=== PATIENT | female | born 1950 | race Caucasian/White ===

== ENCOUNTER 2016-08-22 10:02 | Observation (INO) | payer MEDICAID, SELFPAY ==
[2016-08-22] VITALS (10 sets, daily range): BP systolic 103–162; BP diastolic 66–115; PULSE 101–114; RESP 16–25; TEMP 36.5–37.1; O2SAT 91–99; BMI 49.9; BMI 41.9
[2016-08-22 10:13] LABS: Bedside Glucose 348 mg/dL (70-110)
--- NOTE | 2016-08-22 10:15 | RAD_ITS ---
STUDY: X-RAY CHEST REASON FOR EXAM: Female, 65 years old. Shortness of breath. TECHNIQUE: Single AP portable view of the chest. COMPARISON: 11/12/2015. FINDINGS: The lungs are clear and expanded. There is no demonstrated pleural abnormality. Normal size heart. Normal mediastinum and easton. Normal visualized pulmonary arteries. There is atherosclerotic calcification of the aortic arch. Normal visualized thoracic spine. There are mild degenerative changes in the right acromioclavicular joint. There is no demonstrated abnormality of the visualized soft tissue structures of the upper abdomen. RAD/Chest 1 View (Portable) IMPRESSION: No active pulmonary disease. Electronically Signed: Torito Olmos MD at 10:57 EDT Tel , Service support [phone],
--- NOTE | 2016-08-22 10:15 | EKG12_ITS ---
Test Reason : SOB Blood Pressure : / mmHG Vent. Rate : 109 BPM Atrial Rate : 109 BPM P-R Int : 152 ms QRS Dur : 086 ms QT Int : 338 ms P-R-T Axes : 063 011 036 degrees QTc Int : 455 ms Sinus tachycardia Otherwise normal ECG Confirmed by JESUS WRIGHT ([id number]), editor farm journal GUERRERO AGUERO ([id number] on 08/23/2016 2:45:28 PM Referred By: Confirmed By:JESUS WRIGHT
[2016-08-22] MEDS: 0.9% Normal Saline 1,000 ML 1000 ML IV (10:20)
[2016-08-22 10:33] LABS: Absolute Lymphocyte Count 1.36 X10^3/ul (0.83-4.51); Absolute Neutrophil Count 3.8 X10^3/uL (2.0-7.7); Basophil# 0.02 X10^3/uL; Basophil% 0.3 % (0-1); Eosinophil# 0.01 X10^3/uL; Eosinophils% 0.2 % (0-5); Hematocrit 43.2 % (37-47); Hemoglobin 14.5 g/dl (12.0-15.0); Lymphocyte # 1.36 X10^3/ul (4.0); Lymphocyte % 22.7 % (19-41); Mean Corp Hgb Conc 33.6 g/gl (32-36); Mean Corpuscular Hgb 29.8 pg (27.0-32.0); Mean Corpuscular Volume 88.7 fL (81-99); Mean Platelet Vol. 11.8 fl (6.2-12.0); Monocyte# 0.84 X10^3/uL; Neutrophil # 3.76 X10^3/uL (2.7-7.7); Neutrophil % 62.6 % (47-70); Platelet Count 154 K/mm3 (150-450); RBC Distribution Width CV 14.2 % (11.6-14.6); RBC Distribution Width SD 45.9 fl (35.1-43.9); Red Blood Count 4.87 M/mm3 (4.2-5.4)
[2016-08-22 10:34] LABS: POSITIVE COUNT NO; POSITIVE DIFFERENTIAL NO; POSITIVE MORPHOLOGY NO
[2016-08-22 10:55] LABS: ALB/GLOB Ratio 0.7 RATIO (0.9-2.4); AST(SGOT) 142 U/L (15-37); Alanine Aminotransfer ALT/SGPT 102 U/L (12-78); Alkaline Phosphatase 128 U/L (45-117); Anion Gap 9 (5-15); BUN 15 mg/dL (7-18); Calcium,Total 8.5 mg/dL (8.5-10.1); Chloride 102 mmol/L (98-107); Creatinine, Serum 0.94 mg/dL (0.55-1.02); EST Glomerular Filtration Rate 64 mL/min (>60); Est Glom Filt Rate - Afr Amer 78 mL/min (>60); Estimated Creatinine Clearance 55.12 ml/min; Globulin 4.6 g/dL (2.3-3.5); Glucose 468 mg/dL (70-110); Potassium 4.7 mmol/L (3.5-5.1); Protein, Total 7.6 g/dL (6.4-8.2); Sodium Level 133 mmol/L (136-145)
--- NOTE | 2016-08-22 10:55 | ED.RN ---
GLUCOSE 468. AWARE.
[2016-08-22 11:31] LABS: Mucous, Urine 0 SEEN /hpf (<or=2+); Red Blood Cells-Urine 0 SEEN /hpf (0-5)
[2016-08-22 11:39] LABS: Color, Urine Yellow (Yellow); Glucose, Dipstick 1000 mg/dl (Normal); Ketone-Dipstick 50 mg/dl (Negative); Leukocyte Esterase-Dipstick Negative /ul (Negative); Nitrite-Dipstick Positive (Negative); Occult Blood-Urine 25 /ul (Negative); Protein-Dipstick 15 mg/dl (Negative); Specific Gravity, Urine 1.015 (1.002-1.030); Urine Bilirubin Dipstick Negative (Negative); Urine Clarity Sl. Cloudy (Clear); Urine Urobilinogen Normal (Normal)
[2016-08-22 11:48] LABS: Bacteria 4+ /hpf (None Seen); Squamous Epithelial Cells - UA 0-5 SEEN /hpf (5-10); White Blood Cells 0-5 SEEN /hpf (0-5)
--- NOTE | 2016-08-22 12:51 | HP.PCM_ITS ---
History of Present Illness Date of Admission: 08/22/16 Chief Complaint: Not feeling well The patient is a 65 year old female was brought in to the ED from [facility] was complains of not feeling well. Patient is extremely poor historian, says that she does not know why she was brought into the ED, probably because she was not feeling right. Patient is unable to give more specific complaints. Per report she was found to be acting weird in the [facility] where she resides, her blood sugars were found to be elevated. She also complained of. The my exam patient is laying down in bed, does not appear to be distressed, although she looks weak and fatigued. Says that does not feel right. Complains of dull achy pain in the epigastric area that she rates as 6/10, says that it moves from her left abdomen to the right. She also complains of shortness of breath and coughing for about 1 week, reports dry cough without sputum production. Also reports lightheadedness for the last 2 days and generalized weakness for the same period of time. She also complains that for the last week she feels burning on urination, frequency, increased thirst, urgency, nocturia, incontinence with coughing. She also mentioned to me that he will left leg hurts, but she did not notice anything abnormal. That said patient has very significant rash spreading from her groin area to the left lower extremity that does look like severe intertrigo. Patient denies any fever or chills, but says that she is constantly cold. Past medical history. Patient denies any medical problems, although says that she does have bipolar disorder and anxiety. She also mentioned to me that she has IBS, but is not on any medications. Social history. Patient is homeless, lives at the [facility]. Smokes for unknown period of time, less than 2 weeks ago, states he smokes about 1 cigarette per day. Denies use of alcohol street drugs. Family history. Her grandmother had diabetes mellitus. Her mother had bioprosthetic heart valve. Past Medical History Allergies ciprofloxacin [From Cipro] Allergy (Verified 01/16/16 22:33) Anaphylaxis ciprofloxacin HCl [From Cipro] Allergy (Verified 01/16/16 22:33) Anaphylaxis Iodinated Contrast Media - Oral and [Iodinated Contrast Media - IV Dye] Allergy (Verified 01/16/16 22:33) Rash paliperidone [From Invega] Allergy (Verified 01/16/16 22:33) Rash Penicillins Allergy (Verified 01/16/16 22:33) Unknown Sulfa (Sulfonamide Antibiotics) Allergy (Verified 01/16/16 22:33) Unknown Home Medications: Ambulatory Orders Medication Instructions Recorded Clonazepam [Klonopin] 0.5 mg PO Q8H PRN PRN 08/19/13 Lamotrigine [Lamictal] 150 mg PO DAILY 08/19/13 Ergocalciferol [Vitamin D] 50,000 unit PO Q7D 05/07/15 Quetiapine Fumarate [Seroquel] 600 mg PO QHS 08/22/16 Smoking Status: Former smoker . - As above Review of Systems Constitutional: Reports: Malaise, Weakness, Fatigue. Denies: Anorexia, Chills, Fever, Night Sweats Eyes: Denies: Vision Change HEENT: Denies: Visual Changes Cardiovascular: Reports: Light Headedness. Denies: Chest Pain, Chest Tightness , Edema, Palpitations, Syncope Respiratory: Reports: Cough, Shortness of Breath. Denies: Hemoptysis, Pleuritic Pain, Sputum production Gastrointestinal: Reports: Abdominal Pain, Hematochezia - Says it did noted bright red blood when she wipes.. Denies: Constipation, Diarrhea, Dyspepsia, Nausea, Melena, Vomiting Genitourinary: Reports: Dysuria, Frequency, Hesitancy, Incontinence, Nocturia, Retention, Urgency. Denies: Hematuria Gynecological: Reports: Vaginal itching Musculoskeletal: Reports: Leg Pain. Denies: Hand Pain, Joint Pain, Muscle pain Skin: Reports: Dryness, Rash - When patient was pointed to the rash she is a that she does have this rash but does not know for how long, Skin Changes. Denies: Jaundice Neurological: Reports: Balance problems - Due to lightheadedness. Denies: Blurred vision, Double vision, Change in Speech, Slurred speech, Confusion, Difficulty swallowing, Focal weakness, Headaches, Incoordination, Numbness, Tingling, Tremor, Seizures Psychiatric: Reports: Anxiety, - - Bipolar. Denies: Suicidal Ideations Endocrine: Reports: Polydipsia. Denies: Change in Body Habitus Hematologic/ Lymphatic: Denies: Adenopathy, Anemia, Hx of blood clot VTE Information - Inpt Only VTE Present on Admission: No Objective: General: Patient is laying down in bed, does not appear to be in distress. Very poor hygiene. Awake, alert, oriented ?3. HEENT: Atraumatic, Normocephalic. Clear conjunctiva. Oral mucosa is dry. Neck: No nodules noted, no asymmetry. PERRLA. Skin: Clean, dry. There is extensive foul-smelling rash in her groin bilaterally spreading to the lower extremities left more than right to the level below the knee, it does resemble severe intertrigo. Lungs: clear to auscultation bilaterally. CVS: S1-S2 present, no murmurs appreciated, regular rate, good radial pulses. Capillary refill is less than 3 Seconds. Abdomen: Soft, nontender, nondistended, bowel sounds present. No CVA tenderness. Extremities: No clubbing, No cyanosis. No visible deformities. Bilateral lower extremity edema. Psych/Mental Status: She does look somewhat slow, but appropriate and cooperative. Neuro: No focal neurological findings. - Physical Exam Vital Signs Temp Pulse Resp BP Pulse Ox 37.1 C 106 21 156/88 96 08/22/16 10:03 08/22/16 12:17 08/22/16 12:17 08/22/16 12:17 08/22/16 12:17 Oxygen Flow Rate 2 Oxygen Delivery Method Nasal Cannula Weight: 136.078 kg Body Mass Index (BMI) 49.9 Finger Stick Blood Glucose 118 Laboratory Tests Past 24 Hrs 08/22/16 08/22/16 08/22/16 10:25 10:25 11:20 WBC 6.0 RBC 4.87 Hgb 14.5 Hct 43.2 MCV 88.7 MCH 29.8 MCHC 33.6 RDW 14.2 RDW Differential 45.9 H Plt Count 154 MPV 11.8 Immature Gran % (Auto) 0.200 Neut % (Auto) 62.6 Lymph % (Auto) 22.7 [place] % (Auto) 14.0 H Eos % (Auto) 0.2 Baso % (Auto) 0.3 Absolute Neuts (auto) 3.8 Absolute Lymphs (auto) 1.36 Total Counted Not Reportable Sodium 133 L Potassium 4.7 Chloride 102 Carbon Dioxide 22.0 Anion Gap 9 BUN 15 Creatinine 0.94 Estim Creat Clear Calc 55.12 Est GFR (MDRD) Af Amer 78 Est GFR (MDRD) Non-Af 64 BUN/Creatinine Ratio 16.0 Glucose 468 H* Calcium 8.5 Total Bilirubin 0.50 AST 142 H ALT 102 H Alkaline Phosphatase 128 H Total Protein 7.6 Albumin 3.0 L Globulin 4.6 H Albumin/Globulin Ratio 0.7 L Urine Color Yellow Urine Clarity Sl. Cloudy Urine pH 5.0 Ur Specific Chester 1.015 Urine Protein 15 H Urine Glucose (UA) 1000 H Urine Ketones 50 H Urine Occult Blood 25 H Urine Nitrite Positive H Urine Bilirubin Negative Urine Urobilinogen Normal Ur Leukocyte Esterase Negative Urine RBC 0 SEEN Urine WBC 0-5 SEEN Ur Squamous Epith Cells 0-5 SEEN Urine Bacteria 4+ Urine Mucus 0 SEEN POC Glucose 08/22/16 10:03 POC Glucose 348 H Assessment/Plan * Newly diagnosed diabetes mellitus type 2, complicated with HHS-blood glucose on arrival 468. Likely trigger is UTI. Will check hemoglobin A1c. We will start on insulin sliding scale for now, IV fluids. Based on hemoglobin A1c level will decide oral hypoglycemic agents versus insulin. * UTI, likely cystitis. Patient has urinary symptoms as above. Urine is positive for bacterial infection, cultures are pending. Patient has multiple allergies to antibiotics. Will give a trial of 0.5 g of ceftriaxone with Benadryl. Will monitor for reactions, if tolerating well, will continue ceftriaxone. * Severe intertrigo. Patient need to improve hygiene. Will start on topical nystatin. If no improvement will consider oral antifungals. * Dehydration. Patient does look dehydrated likely due to HHS. Will encourage oral intake, will give IV fluids. * History of bipolar disorder and anxiety. Looks stable now, continue home medications. * DVT prophylaxis was Lovenox. Mikeon Dictation.
--- NOTE | 2016-08-22 13:25 | NURSING ---
dr greenfield in [place]
--- NOTE | 2016-08-22 13:29 | NURSING ---
MED SURG [facility]
[2016-08-22] MEDS: Nitrofurantoin Macrocrystals 100 MG Capsule PO (13:36)
[2016-08-22] MEDS: Nystatin Ointment 1 APPLIC TOPICAL (13:36)
[2016-08-22 14:15] LABS: Bedside Glucose 299 mg/dL (70-110)
[2016-08-22 14:27] LABS: Lipase 147 U/L (73-393)
[2016-08-22 15:34] LABS: Bedside Glucose 233 mg/dL (70-110)
[2016-08-22] MEDS: DiphenhydrAMINE 50 MG/ML Syringe 25 MG IV (15:40)
[2016-08-22] MEDS: 0.9% Normal Saline 1,000 ML 75 ML IV (15:43)
[2016-08-22] MEDS: Glucerna Shake 120 ML LIQUID PO ×2 (17:33→22:32)
[2016-08-22] MEDS: Nystatin Powder 15gm Bottle 1 APPLIC TOPICAL ×2 (17:33→22:32)
[2016-08-22 22:40] LABS: Bedside Glucose 271 mg/dL (70-110)
[2016-08-23] VITALS (11 sets, daily range): BP systolic 123–161; BP diastolic 64–99; PULSE 97–114; RESP 16–18; TEMP 36.6–36.8; O2SAT 94–96
[2016-08-23] MEDS: Nystatin Powder 15gm Bottle 1 APPLIC TOPICAL ×3 (06:19→22:06)
[2016-08-23 06:45] LABS: Bedside Glucose 304 mg/dL (70-110)
--- NOTE | 2016-08-23 07:24 | PN_ITS ---
Subjective: Patient is 65-year-old female who was admitted to hospital with complaints of not feeling well, was found to have newly diagnosed diabetes mellitus, UTI, severe intertrigo. Subjective. Patient was seen and examined. Sitting in the chair, comfortable, she does look better today, says it overall feels better. Still has mild urinary complaints, although Sandys is better now. Denies GI/neuro complaints. Afebrile. No shortness of breath now. Objective. General: Patient is laying down in bed, does not appear to be in distress. Very poor hygiene. Awake, alert, oriented ?3. HEENT: Atraumatic, Normocephalic. Clear conjunctiva. Oral mucosa is moist. Neck: No nodules noted, no asymmetry. PERRLA. Skin: Clean, dry. There is extensive foul-smelling rash in her groin bilaterally spreading to the lower extremities left more than right to the level below the knee, it does resemble severe intertrigo. Today there is a marked improvement in the extent of the rash, yet it is still very extensive and severe. Lungs: clear to auscultation bilaterally. CVS: S1-S2 present, no murmurs appreciated, regular rate, good radial pulses. Capillary refill is less than 3 Seconds. Abdomen: Soft, nontender, nondistended, bowel sounds present. No CVA tenderness. Extremities: No clubbing, No cyanosis. No visible deformities. Bilateral lower extremity edema. Psych/Mental Status: She does look somewhat slow, but appropriate and cooperative. Neuro: No focal neurological findings. Assessment and plan. * Newly diagnosed diabetes mellitus type 2, complicated with HHS-blood glucose on arrival 468. Likely trigger is UTI. Surgeon insulins. Hemoglobin A1c = 13.2. We will add basal insulin, continue insulin sliding scale, will adjust as needed. HHS resolved. * UTI, likely cystitis due to E. coli. History of penicillin allergy, although patient is tolerating ceftriaxone well, will continue. Symptoms are improving. * Severe intertrigo. Patient need to improve hygiene. Started on topical nystatin. Noted improvement in here rash, still very extensive. * Dehydration. Patient does look dehydrated likely due to HHS. Treated with IV fluids and encouraging oral intake. Improved. * History of bipolar disorder and anxiety. Looks stable now, continue home medications. * DVT prophylaxis was Lovenox. * Disposition: Patient is homeless, lives at [facility], during my conversation with patient I do not think she fully understand the extent of her medical conditions. I am not sure if she will be able to manage her diabetes independently, at least right away after discharge, she probably will need more extensive training and supervision at least initially. I believe she would benefit from assisted living facility or [facility] placement at least with initiation of her insulins to ensure good control of her blood glucose levels. director information security consulted. Justina Mccraryation. Vitals/I&O's: Vital Signs Temp Pulse Resp BP Pulse Ox 36.7 C 100 16 133/77 94 08/23/16 03:00 08/23/16 03:54 08/23/16 03:00 08/23/16 03:00 08/23/16 07:13 Oxygen Flow Rate 2 Oxygen Delivery Method Room Air Weight: 115.8 kg Body Mass Index (BMI) 41.9 Finger Stick Blood Glucose 299 Intake and Output for Last 24 Hours 08/21/16 08/22/16 08/23/16 23:59 23:59 23:59 Intake Total 585 631 Balance 585 631 Laboratory Results 08/22/16 14:06: POC Glucose 299 H 08/22/16 15:21: POC Glucose 233 H 08/22/16 22:22: POC Glucose 271 H 08/23/16 06:09: POC Glucose 304 H Current Medications Acetaminophen (Tylenol) 650 mg PO Q6H PRN PRN PRN Reason: Mild Pain (scale 0-3)/T>100.7 Clonazepam (Klonopin) 0.5 mg PO Q8H PRN PRN PRN Reason: ANXIETY Last Admin: 08/23/16 06:21 Dose: 0.5 mg Dextrose (D50w Syringe) 0 gm IV X1 PRN; Protocol PRN Reason: Hypoglycemia Diphenhydramine HCl (Benadryl) 25 mg IV X1 PRN PRN Reason: ALLERGIES Enoxaparin Sodium (Lovenox) 40 mg SC DAILY@1000 ARNULFO Glucagon () 1 mg IM .X1 PRN PRN Reason: Hypoglycemia Ceftriaxone Sodium 1 gm/ N/A 50 mls @ 100 mls/hr IV Q24 ARNULFO Insulin Aspart (Novolog Flexpen (Bkc)) 0 units SC ACHS ARNULFO PRN Reason: Protocol Last Admin: 08/23/16 06:20 Dose: 6 units Lamotrigine (Lamictal) 150 mg PO DAILY [facility] Non-Formulary Medication (Quetiapine Fumarate [Seroquel]) 600 mg PO QHS [facility] Nutritional Formula (Lactose Free) (Glucerna Shake) 120 ml PO 4X/DAY [facility] Last Admin: 08/22/16 22:32 Dose: 120 ml Nystatin (Mycostatin Powder) 1 applic TOPICAL TID [facility] PRN Reason: Protocol Last Admin: 08/23/16 06:19 Dose: 1 applicatio Ondansetron HCl (Zofran) 4 mg IV Q8H PRN PRN PRN Reason: Nausea Sodium Chloride () 5 ml IV UD PRN PRN Reason: SALINE FLUSH
[2016-08-23 08:01] LABS: Absolute Lymphocyte Count 1.35 X10^3/ul (0.83-4.51); Absolute Neutrophil Count 2.2 X10^3/uL (2.0-7.7); Basophil# 0.01 X10^3/uL; Basophil% 0.2 % (0-1); Eosinophil# 0.01 X10^3/uL; Eosinophils% 0.2 % (0-5); Hematocrit 41.5 % (37-47); Hemoglobin 13.6 g/dl (12.0-15.0); Lymphocyte # 1.35 X10^3/ul (4.0); Lymphocyte % 33.4 % (19-41); Mean Corp Hgb Conc 32.8 g/gl (32-36); Mean Corpuscular Hgb 29.7 pg (27.0-32.0); Mean Corpuscular Volume 90.6 fL (81-99); Mean Platelet Vol. 11.3 fl (6.2-12.0); Monocyte% 12.4 % (0-10); Neutrophil # 2.17 X10^3/uL (2.7-7.7); Neutrophil % 53.8 % (47-70); Platelet Count 128 K/mm3 (150-450); RBC Distribution Width SD 46.6 fl (35.1-43.9); Red Blood Count 4.58 M/mm3 (4.2-5.4)
[2016-08-23 08:02] LABS: POSITIVE COUNT NO; POSITIVE DIFFERENTIAL NO; POSITIVE MORPHOLOGY NO
[2016-08-23 08:26] LABS: ALB/GLOB Ratio 0.6 RATIO (0.9-2.4); AST(SGOT) 97 U/L (15-37); Alanine Aminotransfer ALT/SGPT 79 U/L (12-78); Albumin, Serum 2.7 g/dL (3.4-5.0); Alkaline Phosphatase 110 U/L (45-117); Anion Gap 8 (5-15); BUN 13 mg/dL (7-18); BUN/Creat Ratio 20.2 RATIO (10-20); Calcium,Total 8.2 mg/dL (8.5-10.1); Chloride 103 mmol/L (98-107); Creatinine, Serum 0.64 mg/dL (0.55-1.02); EST Glomerular Filtration Rate 99 mL/min (>60); Est Glom Filt Rate - Afr Amer 119 mL/min (>60); Estimated Creatinine Clearance 80.96 ml/min; Globulin 4.3 g/dL (2.3-3.5); Glucose 279 mg/dL (70-110); Potassium 3.7 mmol/L (3.5-5.1); Sodium Level 133 mmol/L (136-145)
[2016-08-23] MEDS: Glucerna Shake 120 ML LIQUID PO (08:54)
[2016-08-23] MEDS: Enoxaparin 40 MG/0.4 ML Syringe SC (08:54)
[2016-08-23 08:59] LABS: Hemoglobin A1c 13.2 % (4.2-6.3)
[2016-08-23 12:19] LABS: Bedside Glucose 319 mg/dL (70-110)
--- NOTE | 2016-08-23 15:04 | CHAPLAIN ---
patient has finished lunch and welcomes me into room; pt tells me that she is homeless and has recently been in two shelters in our community; pt is unhappy with her last experience and does not want to return there; pt has worry about where she will live; pt tells me that she has [employer] voucher, money saved, and yet she needs to get confirmation of an apartment that is ready for her when she gets out of hospital; pt has a son but he is in correction; this son is expected to be released from correction soon and local orthodox is helping him 'get on his feet'; pt has a recent connection to a orthodox and we talked about how she could receive assistance from them; pt is encouraged to think about options and to follow through on a plan; pt is tearful at times; pt has had an offer from a few new friends to live with them temporarily but she knows they have very little food money etc.; pt welcomes a prayer; pt expresses thanks for listening support; pt is encouraged to follow through on some ideas for her living situation;
--- NOTE | 2016-08-23 16:02 | CASEMGMT ---
Social Work Face to face with the pt to discuss discharge planning. Introduced self and role at [facility]. The pt reports that she has been at [facility] since August 062016. Prior that this transition she was at [facility] for 6 months. Before she went to [facility] she was living with her son in an apartment and then they were evicted. She states that her son, Estrada, who is currently in penitentiary and her ex- are her two primary supports. Her ex- took her to her last appointment with Dr. Bai at the counseling center. Pt has diagnoses of a bipolar and severe anxiety. Reports to be on Klonopin and Seroquel at home. Denies substance abuse. She denies any concerns of abuse or neglect with him and states that they still have a good relationship. Her son will be getting out of half-way in the next month or so she reports. She does have a sample case porter through the counseling center, India Howell, but states she is always too busy to every help me and she's not very nice to me. When the pt was asked to elaborate she states that her sample case porter has told her that she cannot do everything for me and has cancelled taking me to appointments last minute with no other plan. Discuss with the pt that benefit of having a sample case porter and the possibility of her trying to make her and her sample case porter's schedules coordinate better to assist her better, and pt expresses understanding. Pt does receive $21 in food stamps monthly and $755 monthly through [employer]. She has been approved for [employer] and claims that she has to find a place to live and has four places in mind. Reports that her plan is to return to [facility] and find housing from there. Pt has been to [facility] in [place], [place] in 2002 three for a heel injury. When asked if pt thinks she can manage her diabetes she states no and that she does not feel she has been taught. Pt states that she has been getting insulin, but no one is telling her how much or what all it assists her with. States that someone gave her a packet on diabetes, but they did not explain anything and she has not read it. Informed nursing staff of the pt's concerns with teaching. SW to continue to follow and assist with discharge planning. Plan: [facility] until pt locates [facility] housing. LATASHA Nuñez AEROSPACE ENGINEER OFFICER [employer]
[2016-08-23 16:42] LABS: Bedside Glucose 302 mg/dL (70-110)
[2016-08-23 22:56] LABS: Bedside Glucose 319 mg/dL (70-110)
[2016-08-24] VITALS (7 sets, daily range): BP systolic 116–138; BP diastolic 69–93; PULSE 103–110; RESP 16–18; TEMP 36.2–37.9; O2SAT 92–94
[2016-08-24 06:08] LABS: HEPATITIS B SURFACE AG Negative (Negative); Hepatitis A IgM Antibody Negative (Negative); Hepatitis B Core AB IgM Negative (Negative)
--- NOTE | 2016-08-24 06:08 | EDS_ITS ---
DATE OF SERVICE: 08/22/[address] Fadia Walls dictating on behalf of Dr. Katrin Rowland. HISTORY OF PRESENT ILLNESS: The patient is a 65-year-old female presenting to the Emergency Department via EMS for an elevated blood glucose reading. According to history, the patient had appeared confused at her residence, which is the [facility]. BGT reading was recorded as high. She denies any prior history of diabetes. However, she reports that she has had a productive cough with shortness of breath for the past several days in duration and notes that a friend currently has pneumonia. Additional findings on review of systems include polyuria and polydipsia. The patient has also had urinary incontinence; however, she denies any dysuria with this. She denies any fevers, abdominal pain, nausea or vomiting. Remaining review of systems is negative. PAST MEDICAL HISTORY: Anxiety and bipolar disorder. SOCIAL HISTORY: She denies any alcohol, tobacco or drug use. PHYSICAL EXAMINATION: VITAL SIGNS: Blood pressure 162/115, temperature 98.7, heart rate 114, respiratory rate 21 at 91% on room air. GENERAL: Obese unkempt female in no acute distress. HEENT: Normocephalic, atraumatic. Pupils are equal, round and reactive to light bilaterally. Extraocular movements intact. She has dry mucous membranes. NECK: Supple with no lymphadenopathy. CARDIOVASCULAR: Tachycardia with a regular rhythm. No murmurs. Normal S1, S2. RESPIRATORY: No distress. Clear to auscultation bilaterally. ABDOMEN: Soft, nontender, nondistended. EXTREMITIES: Nontender, no edema. SKIN: She is noted to have a diffuse erythematous rash with a yeast substance noted in the groin and intertriginous areas. NEUROLOGIC: She is alert and oriented x3 with CN II-XII intact and normal strength and sensation of the bilateral upper and lower extremities. EMERGENCY DEPARTMENT COURSE: Upon her arrival, the patient's vital signs are within normal limits with the exception of a mild tachycardia of 114. No focal neurological deficits are appreciated. EKG demonstrates a normal sinus rhythm with a rate of 109 with no evidence of acute ischemia or arrhythmia. The patient's CBC and basic metabolic panel are significant for a glucose of 468 and a mild hyponatremia at 133. She has a normal anion gap at 9. LFTs are mildly elevated. Urinalysis is positive for nitrites; however, only 0-5 wbc's are appreciated. However, given her symptoms, we feel that she is appropriate to treat her at this point in time with antibiotics for which she will be given a dose of Macrobid here in the Emergency Department. Additionally, she was given 2 liters of normal saline IV fluid here in the Emergency Department with 10 units subcutaneous insulin. Upon reevaluation at 1230, she is resting comfortably with no focal neurological deficits appreciated on exam. She is alert and oriented x3. Cardiac exam reveals a regular rate and rhythm. Of note , her chest x-ray is negative for any acute process. Given her hyperglycemia with concerns for new-onset diabetes and mild confusion, we feel that she is appropriate for admission for continued observation and management. We discussed this case with the hospitalist, Dr. Saleh who has agreed to admit her. CLINICAL IMPRESSION: 1. Hyperglycemia. 2. Urinary tract infection. 3. Yeast infection Fadia Walls MD T: NTS JOB: [id number]
[2016-08-24 06:39] LABS: Bedside Glucose 287 mg/dL (70-110)
[2016-08-24] MEDS: Nystatin Powder 15gm Bottle 1 APPLIC TOPICAL ×3 (06:39→20:39)
--- NOTE | 2016-08-24 07:22 | PN_ITS ---
Subjective: 65-year-old female no significant medical problems except for bipolar and anxiety, admitted on 08/22/2016 with newly diagnosed type II DM complicated with HHS. Patient was seen and examined. Vitals reviewed, no fevers, slight tachycardia, saturating well on room air, her blood pressure is controlled. Sugars remain uncontrolled with predominant RBS more than 300. Objective: eneral: Patient is laying down in bed, does not appear to be in distress. Very poor hygiene. Awake, alert, oriented ?3. HEENT: Atraumatic, Normocephalic. Clear conjunctiva. Oral mucosa is dry. Neck: No nodules noted, no asymmetry. PERRLA. Skin: Extensive erythematous/petechiae rash in her groin bilaterally spreading to the lower extremities left more than right, more on the anterior lateral knee , Lungs: clear to auscultation bilaterally. CVS: S1-S2 present, no murmurs appreciated, regular rate, good radial pulses. Capillary refill is less than 3 Seconds. Abdomen: Soft, nontender, nondistended, bowel sounds present. No CVA tenderness. Extremities: No clubbing, No cyanosis. No visible deformities. Bilateral lower extremity edema. Psych/Mental Status: She does appear somewhat slow, but appropriate and cooperative. Neuro: No focal neurological findings. Vitals/I&O's: Vital Signs Temp Pulse Resp BP Pulse Ox 98.1 F 103 16 138/80 93 08/24/16 03:36 08/24/16 03:37 08/24/16 03:36 08/24/16 03:36 08/24/16 03:36 Oxygen Flow Rate 2 Oxygen Delivery Method Room Air Weight: 115.5 kg Body Mass Index (BMI) 41.9 Finger Stick Blood Glucose 299 Intake and Output for Last 24 Hours 08/22/16 08/23/16 08/24/16 23:59 23:59 23:59 Intake Total 585 1331 Balance 585 1331 Laboratory Results 08/23/16 07:40: Hepatitis A IgM Ab Pending, Hep Bs Antigen Pending, Hep B Core IgM Ab Pending, Hepatitis C Ab (EIA) Pending 08/23/16 07:40: Sodium 133 L, Potassium 3.7, Chloride 103, Carbon Dioxide 22.0, Anion Gap 8, BUN 13, Creatinine 0.64, Estim Creat Clear Calc 80.96, Est GFR ( MDRD) Af Amer 119, Est GFR (MDRD) Non-Af 99, BUN/Creatinine Ratio 20.2 H, Glucose 279 H, Calcium 8.2 L, Total Bilirubin 0.40, AST 97 H, ALT 79 H, Alkaline Phosphatase 110, Total Protein 7.0, Albumin 2.7 L, Globulin 4.3 H, Albumin/Globulin Ratio 0.6 L 08/23/16 07:40: Hemoglobin A1c 13.2 H 08/23/16 07:40: WBC 4.0 L, RBC 4.58, Hgb 13.6, Hct 41.5, MCV 90.6, MCH 29.7, MCHC 32.8, RDW 14.0, RDW Differential 46.6 H, Plt Count 128 L, MPV 11.3, Immature Gran % (Auto) 0.000, Neut % (Auto) 53.8, Lymph % (Auto) 33.4, [place] % ( Auto) 12.4 H, Eos % (Auto) 0.2, Baso % (Auto) 0.2, Absolute Neuts (auto) 2.2, Absolute Lymphs (auto) 1.35, Total Counted Not Reportable 08/23/16 11:42: POC Glucose 319 H 08/23/16 16:20: POC Glucose 302 H 08/23/16 21:59: POC Glucose 319 H 08/24/16 06:29: POC Glucose 287 H Current Medications Acetaminophen (Tylenol) 650 mg PO Q6H PRN PRN PRN Reason: Mild Pain (scale 0-3)/T>100.7 Clonazepam (Klonopin) 0.5 mg PO Q8H PRN PRN PRN Reason: ANXIETY Last Admin: 08/23/16 19:30 Dose: 0.5 mg Dextrose (D50w Syringe) 0 gm IV X1 PRN; Protocol PRN Reason: Hypoglycemia Diphenhydramine HCl (Benadryl) 25 mg IV X1 PRN PRN Reason: ALLERGIES Enoxaparin Sodium (Lovenox) 40 mg SC DAILY@1000 ARNULFO Last Admin: 08/23/16 08:54 Dose: 40 mg Glucagon () 1 mg IM .X1 PRN PRN Reason: Hypoglycemia Ceftriaxone Sodium 1 gm/ N/A 50 mls @ 100 mls/hr IV Q24 ARNULFO Last Admin: 08/23/16 08:54 Dose: 100 mls/hr Insulin Aspart (Novolog Flexpen (Bkc)) 0 units SC ACHS [facility] PRN Reason: Protocol Last Admin: 08/24/16 06:40 Dose: 6 units Insulin Detemir (Levemir (Bkc)) 10 units SC QHS [facility] Lamotrigine (Lamictal) 150 mg PO DAILY [facility] Last Admin: 08/23/16 08:54 Dose: 150 mg Nystatin (Mycostatin Powder) 1 applic TOPICAL TID [facility] PRN Reason: Protocol Last Admin: 08/24/16 06:39 Dose: 1 applicatio Ondansetron HCl (Zofran) 4 mg IV Q8H PRN PRN PRN Reason: Nausea Quetiapine Fumarate (Seroquel) 300 mg PO BID [facility] Last Admin: 08/23/16 22:07 Dose: 300 mg Sodium Chloride () 5 ml IV UD PRN PRN Reason: SALINE FLUSH Assessment/Plan 1. Newly diagnosed diabetes mellitus type 2, complicated with [facility] admission, HbA1c is 13.2, blood sugars remain uncontrolled, On Levemir 10 units QHS, and insulin sliding scale. Appreciate help from health and social care teacher and dietitian in educating patient on blood sugar control and checking her sugars Plan: Increase Levemir to 15 units QHS, would add metformin 500 mg twice daily because patient is obese, continue to monitor blood sugars 2. E. coli UTI, stable vitals, on IV ceftriaxone day 2 Plan: We will aim for a total of 3 days of IV antibiotics 3. Severe intertrigo, on nystatin powder, will hold off oral antifungals for now and monitor for 1 more day. 4. History of bipolar disorder and anxiety, on Seroquel and Lamictal, continue these medications. 5. DVT prophylaxis was Lovenox. 6.Disposition: possible discharge tomorrow morning if sugars are better controlled.
--- NOTE | 2016-08-24 09:02 | CASEMGMT ---
Social Work Discussed with Natalia Justyn education to the pt due to her low literacy. Pt has been provided booklets, but due to her low literacy it is overwhelming and she would likely benefit from one on one verbal and hands on teaching. Natalia inquires if the pt's insurance will cover supplies for the Meka Maricruz Accu-Check the hospital can supply to patients. ELVIN to check and update Natalia. ELVIN reviewed [facility]'s website and confirmed that this senior buyer planner and brand are covered. Call to update Natalia at [phone]. ELVIN to continue to follow and assist with discharge planning. Plan: [facility]. LATASHA Nuñez WINDOW INSTALLER
--- NOTE | 2016-08-24 09:45 | NURSING ---
Patient has low literacy. A preliminary demonstration of the Maricruz glucose meter was given to the patient. Patient was able to take blood sugar with minimal guidance. Patient was given positive reinforcement. Patient verbalized she was tired but was able to demonstrate use of the meter. No further education was done at this time. Nurse stated to patient she would be back at noon to repeat glucose meter steps.
[2016-08-24] MEDS: Enoxaparin 40 MG/0.4 ML Syringe SC (09:51)
--- NOTE | 2016-08-24 10:15 | NURSING ---
Provided patient with a copy of sliding scale. Will educated pt on use of insuline pen and how to read sliding scale. Gave pt a scenario on what if bs was 250 how much insuline would she get according to the scale. Pt was able to correctly state 4 units. Talked with Xochitl Alejandra and told her scale would be in room. We both will work on using the scale today
[2016-08-24 11:26] LABS: Absolute Lymphocyte Count 0.92 X10^3/ul (0.83-4.51); Absolute Neutrophil Count 1.9 X10^3/uL (2.0-7.7); Basophil# 0.01 X10^3/uL; Basophil% 0.3 % (0-1); Eosinophil# 0.02 X10^3/uL; Eosinophils% 0.6 % (0-5); Hematocrit 40.6 % (37-47); Hemoglobin 13.2 g/dl (12.0-15.0); Lymphocyte # 0.92 X10^3/ul (4.0); Lymphocyte % 29.1 % (19-41); Mean Corp Hgb Conc 32.5 g/gl (32-36); Mean Corpuscular Hgb 29.5 pg (27.0-32.0); Mean Corpuscular Volume 90.6 fL (81-99); Mean Platelet Vol. 11.5 fl (6.2-12.0); Monocyte# 0.35 X10^3/uL; Monocyte% 11.1 % (0-10); Neutrophil # 1.85 X10^3/uL (2.7-7.7); Neutrophil % 58.6 % (47-70); Platelet Count 116 K/mm3 (150-450); RBC Distribution Width CV 14.1 % (11.6-14.6); RBC Distribution Width SD 46.7 fl (35.1-43.9); Red Blood Count 4.48 M/mm3 (4.2-5.4); White Blood Count 3.2 K/mm3 (4.4-11.0)
[2016-08-24 11:29] LABS: POSITIVE COUNT NO; POSITIVE DIFFERENTIAL NO; POSITIVE MORPHOLOGY NO
[2016-08-24 11:42] LABS: Anion Gap 7 (5-15); BUN 11 mg/dL (7-18); BUN/Creat Ratio 14.5 RATIO (10-20); Calcium,Total 8.4 mg/dL (8.5-10.1); Chloride 100 mmol/L (98-107); Creatinine, Serum 0.76 mg/dL (0.55-1.02); EST Glomerular Filtration Rate 82 mL/min (>60); Est Glom Filt Rate - Afr Amer 99 mL/min (>60); Estimated Creatinine Clearance 68.18 ml/min; Glucose 312 mg/dL (70-110); Potassium 3.9 mmol/L (3.5-5.1); Sodium Level 134 mmol/L (136-145)
[2016-08-24 12:02] LABS: Bedside Glucose 325 mg/dL (70-110)
--- NOTE | 2016-08-24 14:21 | NURSING ---
Patient able to verbalize hypo and hyperglycemia systems without cueing. Patient stated she read the book. Patient verbalized further understanding of glucose meter. Continued reinforcement recommended.
--- NOTE | 2016-08-24 14:32 | NURSING ---
At lunch pt placed call to this nurse stating that she needed her bs checked because she just ordered lunch. Pt able to set up glucometer and obtain bs results with no assistance. education provided on use of insulin pen, pt was able to return verbalized instructions and again will preform at dinner time. Again explained the difference b/t long and short term insulin. Was able to accurately state things to choose on a diabetic diet
[2016-08-24 15:15] LABS: Hep C Antibodies 0.1 s/co ratio (0.0-0.9)
[2016-08-24 17:19] LABS: Bedside Glucose 200 mg/dL (70-110)
[2016-08-24] MEDS: Acetaminophen 325 MG Tablet 650 MG PO (20:38)
[2016-08-24 22:54] LABS: Bedside Glucose 303 mg/dL (70-110)
[2016-08-25] VITALS (10 sets, daily range): BP systolic 122–162; BP diastolic 64–74; PULSE 92–101; RESP 16–24; TEMP 36.4–36.8; O2SAT 90–95
[2016-08-25 02:42] LABS: Bedside Glucose 250 mg/dL (70-110)
[2016-08-25 04:23] LABS: Lactic Acid 1.1 mmol/L (0.4-2.0)
[2016-08-25] MEDS: Nystatin Powder 15gm Bottle 1 APPLIC TOPICAL ×3 (06:51→21:58)
[2016-08-25 07:28] LABS: Bedside Glucose 221 mg/dL (70-110)
--- NOTE | 2016-08-25 08:31 | RAD_ITS ---
STUDY: X-RAY CHEST REASON FOR EXAM: Female, 65 years old. Cough TECHNIQUE: PA and lateral views of the chest. COMPARISON: Prior chest x-ray from August 22, 2016 and November 12, 2015. FINDINGS: There are increased interstitial changes in the right lung base without significant interval changes since 2016. There is no demonstrated pleural abnormality. Normal size heart. Normal mediastinum and [place]. Normal visualized pulmonary arteries. Normal visualized aortic arch and descending thoracic aorta. Normal visualized thoracic spine. Normal visualized ribs, clavicles, and shoulders. There is no demonstrated abnormality of the visualized soft tissue structures of the upper abdomen. RAD/Chest PA and Lateral IMPRESSION: Mild stable interstitial changes in the right lung base. No focal alveolar infiltrates are seen Electronically Signed: Deshawn Beatty MD, FACR at 12:01 EDT , Service support [phone],
--- NOTE | 2016-08-25 08:35 | PCM.PN.HOSP ---
Subjective: 65-year-old female with bipolar and anxiety, admitted on 08/22/2016 with newly diagnosed type II DM complicated with HHS. Patient was seen and examined. Overnight, patient was said to be hypoxic, saturating 89% on room air, placed on 3 L of oxygen. Very sleepy this morning. Patient attributes it to Seroquel and been working several times in the night. Vitals reviewed, noted T-max of 100.2F. Complains of slight cough. Wheezes was noted overnight by nurses. Objective: General: Patient is laying down in bed, does not appear to be in distress. Very poor hygiene. Awake, alert, oriented ?3. On 3 L of oxygen HEENT: Atraumatic, Normocephalic. Clear conjunctiva. Oral mucosa is dry.PERRLA. Neck: No nodules noted, no asymmetry. Skin: Extensive erythematous/petechiae rash in her groin bilaterally spreading to the lower extremities left more than right, more on the anterior lateral knee, Lungs: clear to auscultation bilaterally. CVS: S1-S2 present, no murmurs appreciated, regular rate, good radial pulses. Capillary refill is less than 3 Seconds. Abdomen: Soft, nontender, nondistended, bowel sounds present. No CVA tenderness. Extremities: No clubbing, No cyanosis. No visible deformities. Bilateral lower extremity edema. Psych/Mental Status: She does appear somewhat slow, but appropriate and cooperative. Neuro: No focal neurological findings. Vitals/I&O's: Vital Signs Temp Pulse Resp BP Pulse Ox 97.6 F 92 20 122/64 94 08/25/16 04:18 08/25/16 04:18 08/25/16 04:18 08/25/16 04:18 08/25/16 04:18 Oxygen Flow Rate 2 Oxygen Delivery Method Nasal Cannula Weight: 117.2 kg Body Mass Index (BMI) 41.9 Finger Stick Blood Glucose 299 Intake and Output for Last 24 Hours 08/23/16 08/24/16 08/25/16 23:59 23:59 23:59 Intake Total 1331 1200 450 Output Total 600 300 Balance 1331 600 150 Laboratory Results 08/23/16 07:40: Hepatitis A IgM Ab Negative, Hep Bs Antigen Negative, Hep B Core IgM Ab Negative, Hepatitis C Ab (EIA) 0.1 08/24/16 11:13: WBC 3.2 L, RBC 4.48, Hgb 13.2, Hct 40.6, MCV 90.6, MCH 29.5, MCHC 32.5, RDW 14.1, RDW Differential 46.7 H, Plt Count 116 L, MPV 11.5, Immature Gran % (Auto) 0.300, Neut % (Auto) 58.6, Lymph % (Auto) 29.1, [place] % (Auto) 11.1 H, Eos % (Auto) 0.6, Baso % (Auto) 0.3, Absolute Neuts (auto) 1.9 L, Absolute Lymphs (auto) 0.92, Total Counted Not Reportable 08/24/16 11:13: Sodium 134 L, Potassium 3.9, Chloride 100, Carbon Dioxide 27.0, Anion Gap 7, BUN 11, Creatinine 0.76, Estim Creat Clear Calc 68.18, Est GFR (MDRD) Af Amer 99, Est GFR (MDRD) Non-Af 82, BUN/Creatinine Ratio 14.5, Glucose 312 H, Calcium 8.4 L 08/24/16 11:31: POC Glucose 325 H 08/24/16 16:56: POC Glucose 200 H 08/24/16 22:23: POC Glucose 303 H 08/25/16 02:22: POC Glucose 250 H 08/25/16 03:40: Lactic Acid 1.1 08/25/16 06:52: POC Glucose 221 H Current Medications Acetaminophen (Tylenol) 650 mg PO Q6H PRN PRN PRN Reason: Mild Pain (scale 0-3)/T>100.7 Last Admin: 08/24/16 20:38 Dose: 650 mg Clonazepam (Klonopin) 0.5 mg PO Q8H PRN PRN PRN Reason: ANXIETY Last Admin: 08/24/16 22:41 Dose: 0.5 mg Dextrose (D50w Syringe) 0 gm IV X1 PRN; Protocol PRN Reason: Hypoglycemia Enoxaparin Sodium (Lovenox) 40 mg SC DAILY@1000 ARNULFO Last Admin: 08/24/16 09:51 Dose: 40 mg Glucagon () 1 mg IM .X1 PRN PRN Reason: Hypoglycemia Ceftriaxone Sodium 1 gm/ N/A 50 mls @ 100 mls/hr IV Q24 ARNULFO Stop: 08/25/16 10:29 Last Admin: 08/24/16 09:50 Dose: 100 mls/hr Insulin Aspart (Novolog Flexpen (Bkc)) 0 units SC ACHS [facility] PRN Reason: Protocol Last Admin: 08/25/16 07:00 Dose: 4 units Insulin Detemir (Levemir (Bkc)) 15 units SC QHS [facility] Last Admin: 08/24/16 22:36 Dose: 15 units Lamotrigine (Lamictal) 150 mg PO DAILY [facility] Last Admin: 08/24/16 09:51 Dose: 150 mg Nystatin (Mycostatin Powder) 1 applic TOPICAL TID [facility] PRN Reason: Protocol Last Admin: 08/25/16 06:51 Dose: 1 applicatio Ondansetron HCl (Zofran) 4 mg IV Q8H PRN PRN PRN Reason: Nausea Quetiapine Fumarate (Seroquel) 300 mg PO BID [facility] Last Admin: 08/24/16 22:41 Dose: 300 mg Sodium Chloride () 5 ml IV UD PRN PRN Reason: SALINE FLUSH Last Admin: 08/24/16 09:51 Dose: 5 ml Assessment/Plan 1. Hypoxia, likely related to atelectasis and immobility; doubt pneumonia or COPD exacerbation Plan: Chest x-ray PA/lateral, breathing treatment q4hrly 2. Episode of fever, noted last night, T-max was 100.2, likely due to atelectasis Plan: Incentive spirometer, encourage use every hour 3. Newly diagnosed diabetes mellitus type 2, complicated with [facility] admission, HbA1c is 13.2, blood sugars are fairly controlled, on Levemir 15 units, metformin with ISS. Plan: Will continue to monitor blood sugars on this regimen. 4. E. coli UTI, stable vitals, on IV ceftriaxone day 3 Plan: DC antibiotics after today 5. Severe intertrigo, on nystatin powder, will hold off oral antifungals for now and monitor for 1 more day. 6. History of bipolar disorder and anxiety, on Seroquel and Lamictal, continue these medications. 7. DVT prophylaxis was Lovenox. 6.Disposition: possible discharge today if chest x-ray is unremarkable and patient continued to improve.
--- NOTE | 2016-08-25 08:43 | PN_ITS ---
Subjective: 65-year-old female with bipolar and anxiety, admitted on 08/22/2016 with newly diagnosed type II DM complicated with HHS. Patient was seen and examined. Overnight, patient was said to be hypoxic, saturating 89% on room air, placed on 3 L of oxygen. Very sleepy this morning. Patient attributes it to Seroquel and been working several times in the night. Vitals reviewed, noted T-max of 100.2F. Complains of slight cough. Wheezes was noted overnight by nurses. Objective: General: Patient is laying down in bed, does not appear to be in distress. Very poor hygiene. Awake, alert, oriented ?3. On 3 L of oxygen HEENT: Atraumatic, Normocephalic. Clear conjunctiva. Oral mucosa is dry.PERRLA. Neck: No nodules noted, no asymmetry. Skin: Extensive erythematous/petechiae rash in her groin bilaterally spreading to the lower extremities left more than right, more on the anterior lateral knee , Lungs: clear to auscultation bilaterally. CVS: S1-S2 present, no murmurs appreciated, regular rate, good radial pulses. Capillary refill is less than 3 Seconds. Abdomen: Soft, nontender, nondistended, bowel sounds present. No CVA tenderness. Extremities: No clubbing, No cyanosis. No visible deformities. Bilateral lower extremity edema. Psych/Mental Status: She does appear somewhat slow, but appropriate and cooperative. Neuro: No focal neurological findings. Vitals/I&O's: Vital Signs Temp Pulse Resp BP Pulse Ox 97.6 F 92 20 122/64 94 08/25/16 04:18 08/25/16 04:18 08/25/16 04:18 08/25/16 04:18 08/25/16 04:18 Oxygen Flow Rate 2 Oxygen Delivery Method Nasal Cannula Weight: 117.2 kg Body Mass Index (BMI) 41.9 Finger Stick Blood Glucose 299 Intake and Output for Last 24 Hours 08/23/16 08/24/16 08/25/16 23:59 23:59 23:59 Intake Total 1331 1200 450 Output Total 600 300 Balance 1331 600 150 Laboratory Results 08/23/16 07:40: Hepatitis A IgM Ab Negative, Hep Bs Antigen Negative, Hep B Core IgM Ab Negative, Hepatitis C Ab (EIA) 0.1 08/24/16 11:13: WBC 3.2 L, RBC 4.48, Hgb 13.2, Hct 40.6, MCV 90.6, MCH 29.5, MCHC 32.5, RDW 14.1, RDW Differential 46.7 H, Plt Count 116 L, MPV 11.5, Immature Gran % (Auto) 0.300, Neut % (Auto) 58.6, Lymph % (Auto) 29.1, [place] % ( Auto) 11.1 H, Eos % (Auto) 0.6, Baso % (Auto) 0.3, Absolute Neuts (auto) 1.9 L, Absolute Lymphs (auto) 0.92, Total Counted Not Reportable 08/24/16 11:13: Sodium 134 L, Potassium 3.9, Chloride 100, Carbon Dioxide 27.0, Anion Gap 7, BUN 11, Creatinine 0.76, Estim Creat Clear Calc 68.18, Est GFR ( MDRD) Af Amer 99, Est GFR (MDRD) Non-Af 82, BUN/Creatinine Ratio 14.5, Glucose 312 H, Calcium 8.4 L 08/24/16 11:31: POC Glucose 325 H 08/24/16 16:56: POC Glucose 200 H 08/24/16 22:23: POC Glucose 303 H 08/25/16 02:22: POC Glucose 250 H 08/25/16 03:40: Lactic Acid 1.1 08/25/16 06:52: POC Glucose 221 H Current Medications Acetaminophen (Tylenol) 650 mg PO Q6H PRN PRN PRN Reason: Mild Pain (scale 0-3)/T>100.7 Last Admin: 08/24/16 20:38 Dose: 650 mg Clonazepam (Klonopin) 0.5 mg PO Q8H PRN PRN PRN Reason: ANXIETY Last Admin: 08/24/16 22:41 Dose: 0.5 mg Dextrose (D50w Syringe) 0 gm IV X1 PRN; Protocol PRN Reason: Hypoglycemia Enoxaparin Sodium (Lovenox) 40 mg SC DAILY@1000 ARNULFO Last Admin: 08/24/16 09:51 Dose: 40 mg Glucagon () 1 mg IM .X1 PRN PRN Reason: Hypoglycemia Ceftriaxone Sodium 1 gm/ N/A 50 mls @ 100 mls/hr IV Q24 ARNULFO Stop: 08/25/16 10:29 Last Admin: 08/24/16 09:50 Dose: 100 mls/hr Insulin Aspart (Novolog Flexpen (Bkc)) 0 units SC ACHS [facility] PRN Reason: Protocol Last Admin: 08/25/16 07:00 Dose: 4 units Insulin Detemir (Levemir (Bkc)) 15 units SC QHS [facility] Last Admin: 08/24/16 22:36 Dose: 15 units Lamotrigine (Lamictal) 150 mg PO DAILY [facility] Last Admin: 08/24/16 09:51 Dose: 150 mg Nystatin (Mycostatin Powder) 1 applic TOPICAL TID [facility] PRN Reason: Protocol Last Admin: 08/25/16 06:51 Dose: 1 applicatio Ondansetron HCl (Zofran) 4 mg IV Q8H PRN PRN PRN Reason: Nausea Quetiapine Fumarate (Seroquel) 300 mg PO BID [facility] Last Admin: 08/24/16 22:41 Dose: 300 mg Sodium Chloride () 5 ml IV UD PRN PRN Reason: SALINE FLUSH Last Admin: 08/24/16 09:51 Dose: 5 ml Assessment/Plan 1. Hypoxia, likely related to atelectasis and immobility; doubt pneumonia or COPD exacerbation Plan: Chest x-ray PA/lateral, breathing treatment q4hrly 2. Episode of fever, noted last night, T-max was 100.2, likely due to atelectasis Plan: Incentive spirometer, encourage use every hour 3. Newly diagnosed diabetes mellitus type 2, complicated with [facility] admission, HbA1c is 13.2, blood sugars are fairly controlled, on Levemir 15 units, metformin with ISS. Plan: Will continue to monitor blood sugars on this regimen. 4. E. coli UTI, stable vitals, on IV ceftriaxone day 3 Plan: DC antibiotics after today 5. Severe intertrigo, on nystatin powder, will hold off oral antifungals for now and monitor for 1 more day. 6. History of bipolar disorder and anxiety, on Seroquel and Lamictal, continue these medications. 7. DVT prophylaxis was Lovenox. 6.Disposition: possible discharge today if chest x-ray is unremarkable and patient continued to improve.
[2016-08-25] MEDS: Enoxaparin 40 MG/0.4 ML Syringe SC (10:38)
--- NOTE | 2016-08-25 11:27 | CASEMGMT ---
Pt may be ready for discharge today vs tomorrow, will need scripts filled. SW spoke w/pt, she uses [facility]. SW called [facility], was given the number for [facility]: [phone]. SW called [facility], spoke w/Brenda. They can fill scripts, may be able to get diabetic supplies for the pt's meter also, and can deliver the meds to the pt. ELVIN faxed the scripts to Brenda, she is to let SW know if there are any issues. ELVIN will continue to follow. RAMILA Hewitt, NURSE ORTHOPEDIC
[2016-08-25 11:36] LABS: Bedside Glucose 323 mg/dL (70-110)
--- NOTE | 2016-08-25 13:55 | CASEMGMT ---
Addendum entered by Chyna Blood 08/25/16 15:03: SW did let pt know that she will be here until tomorrow, [facility] will fill scripts and bring them to her at [facility]. Pt very sleepy, SW woke her up when entered room. Pt did seem to understand. SW will continue to follow. RAMILA Hewitt, WET PLANT OPERATOR Original Note: ELVIN called Brenda at [facility]. She states they can get the pt's meds today, but cannot get the diabetic supplies until tomorrow. ELVIN spoke w/Dr. Gary, pt will be discharged tomorrow. SW let Brenda know, will call her tomorrow to let her know when pt is actually returning to the [facility]. ELVIN set up appointments for pt (MORGAN Cox, 09/06 at 4:30pm, Dr. Daigle, 09/09 at 11:40am), put it in the discharge appt list. ELVIN called pt's registered nurse hh case manager, Connie Howell, left her a message with the appointments also. ELVIN will follow up tomorrow. RAMILA Hewitt, WET PLANT OPERATOR
--- NOTE | 2016-08-25 17:27 | CHAPLAIN ---
follow up with this patient who has little support; pt said at first that she is about the same and then later said that some of her numbers are better; pt tells me she is concerned that they want to give her shots and a pill for her diabetes; pt is not as talkative today as before; pt does welcome a prayer and thanks me for coming;
[2016-08-25 22:09] LABS: Bedside Glucose 281 mg/dL (70-110)
[2016-08-26 02:00] VITALS: BP 132/78; PULSE 94; RESP 20; TEMP 36.3; O2SAT 93
[2016-08-26] MEDS: Nystatin Powder 15gm Bottle 1 APPLIC TOPICAL (05:40)
[2016-08-26 07:03] LABS: Bedside Glucose 237 mg/dL (70-110)
[2016-08-26 08:00] VITALS: RESP 18
[2016-08-26 08:08] VITALS: BP 137/88; PULSE 92; RESP 18; TEMP 36.9; O2SAT 94
--- NOTE | 2016-08-26 09:45 | PCM.PN.HOSP ---
Subjective: 65-year-old female with bipolar disorder and anxiety, admitted on 08/22/2016 with newly diagnosed type II DM complicated with HHS. Patient has been on insulin, barely moves around the room, except for a couple of feet with the nurses, refuses to get up with physical therapy or occupational therapy. Care management working to get medications filled before discharge. Nurses have expressed concern over patient's ability to take care of herself after discharge. Seen and examined. She is lethargic, still attributes it to her Seroquel and not sleeping well at night. No decompensation of her bipolar disorder seen on this admission. No fevers or chills. Off oxygen, did not qualify for home ambulatory oxygen. Objective: General: Patient is laying down in bed, does not appear to be in distress. Very poor hygiene. Awake, alert, oriented ?3. off oxygen. HEENT: Atraumatic, Normocephalic. Clear conjunctiva. Oral mucosa is dry.PERRLA. Neck: No nodules noted, no asymmetry. Skin: Extensive erythematous/petechiae rash in her groin improved with nystatin powder Lungs: clear to auscultation bilaterally. CVS: S1-S2 present, no murmurs appreciated, regular rate, good radial pulses. Abdomen: Soft, nontender, nondistended, bowel sounds present. No CVA tenderness. Extremities: No clubbing, No cyanosis. No visible deformities. Trace bilateral lower extremity edema. Psych/Mental Status: She does appear somewhat slow, but appropriate and cooperative. Neuro: No focal neurological findings. Vitals/I&O's: Vital Signs Temp Pulse Resp BP Pulse Ox 98.4 F 92 18 137/88 94 08/26/16 08:08 08/26/16 08:08 08/26/16 08:08 08/26/16 08:08 08/26/16 08:08 Oxygen Flow Rate 3 Oxygen Delivery Method Room Air Weight: 115.9 kg Body Mass Index (BMI) 41.9 Finger Stick Blood Glucose 299 Intake and Output for Last 24 Hours 08/24/16 08/25/16 08/26/16 23:59 23:59 23:59 Intake Total 1200 1940 550 Output Total 600 1700 800 Balance 600 240 -250 Laboratory Results 08/25/16 11:13: POC Glucose 323 H 08/25/16 21:44: POC Glucose 281 H 08/26/16 06:40: POC Glucose 237 H Current Medications Acetaminophen (Tylenol) 650 mg PO Q6H PRN PRN PRN Reason: Mild Pain (scale 0-3)/T>100.7 Last Admin: 08/24/16 20:38 Dose: 650 mg Clonazepam (Klonopin) 0.5 mg PO Q8H PRN PRN PRN Reason: ANXIETY Last Admin: 08/25/16 18:41 Dose: 0.5 mg Dextrose (D50w Syringe) 0 gm IV X1 PRN; Protocol PRN Reason: Hypoglycemia Enoxaparin Sodium (Lovenox) 40 mg SC DAILY@1000 [facility] Last Admin: 08/25/16 10:38 Dose: 40 mg Glucagon () 1 mg IM .X1 PRN PRN Reason: Hypoglycemia Insulin Aspart (Novolog Flexpen (Bk)) 0 units SC ACHS ARNULFO PRN Reason: Protocol Last Admin: 08/26/16 06:49 Dose: 4 units Insulin Detemir (Levemir (Bkc)) 15 units SC QHS [facility] Last Admin: 08/25/16 21:59 Dose: 15 units Lamotrigine (Lamictal) 150 mg PO DAILY [facility] Last Admin: 08/25/16 10:38 Dose: 150 mg Metformin [facility] (Gl[facility]) [facility] Last Admin: 08/26/16 08:10 Dose: 500 mg Nystatin (Mycostatin Powder) 1 applic TOPICAL TID [facility] PRN Reason: Protocol Last Admin: 08/26/16 05:40 Dose: 1 applicatio Ondansetron HCl (Zofran) 4 mg IV Q8H PRN PRN PRN Reason: Nausea Quetiapine Fumarate (Seroquel) 300 mg PO BID [facility] Last Admin: 08/25/16 21:55 Dose: 300 mg Sodium Chloride () 5 ml IV UD PRN PRN Reason: SALINE FLUSH Last Admin: 08/25/16 22:11 Dose: 5 ml Assessment/Plan 1. Hypoxia, likely related to atelectasis and immobility, resolved. 2. Episode of fever, resolved, was likely due to atelectasis Plan: encourage use of incentive spirometer, 3. Newly diagnosed diabetes mellitus type 2, complicated with HHS at admission, HbA1c is 13.2, blood sugars are fairly controlled, not at goal, Will increase to Levemir 18 units, continue with metformin and ISS. 4. E. coli UTI, completed antibiotics 5. Severe intertrigo, on nystatin powder, improving 6. History of bipolar disorder and anxiety, on Seroquel and Lamictal, continue these medications. 7. DVT prophylaxis was Lovenox. 6.Disposition: Discharged today to assisted
--- NOTE | 2016-08-26 09:54 | CASEMGMT ---
As per physician, pt is ready for discharge today. SW called [facility], they have all of pt's meds and supplies, can deliver to [facility] this afternoon. SW called [facility], pt can return there (spoke w/Lissy). SW called [facility], tentatively set up transport to take pt back between 1:30pm-2:00pm. SW will notify physician. RAMILA Hewitt
--- NOTE | 2016-08-26 09:57 | PN_ITS ---
Subjective: 65-year-old female with bipolar disorder and anxiety, admitted on 08/22/2016 with newly diagnosed type II DM complicated with HHS. Patient has been on insulin, barely moves around the room, except for a couple of feet with the nurses, refuses to get up with physical therapy or occupational therapy. Care management working to get medications filled before discharge. Nurses have expressed concern over patient's ability to take care of herself after discharge. Seen and examined. She is lethargic, still attributes it to her Seroquel and not sleeping well at night. No decompensation of her bipolar disorder seen on this admission. No fevers or chills. Off oxygen, did not qualify for home ambulatory oxygen. Objective: General: Patient is laying down in bed, does not appear to be in distress. Very poor hygiene. Awake, alert, oriented ?3. off oxygen. HEENT: Atraumatic, Normocephalic. Clear conjunctiva. Oral mucosa is dry.PERRLA. Neck: No nodules noted, no asymmetry. Skin: Extensive erythematous/petechiae rash in her groin improved with nystatin powder Lungs: clear to auscultation bilaterally. CVS: S1-S2 present, no murmurs appreciated, regular rate, good radial pulses. Abdomen: Soft, nontender, nondistended, bowel sounds present. No CVA tenderness. Extremities: No clubbing, No cyanosis. No visible deformities. Trace bilateral lower extremity edema. Psych/Mental Status: She does appear somewhat slow, but appropriate and cooperative. Neuro: No focal neurological findings. Vitals/I&O's: Vital Signs Temp Pulse Resp BP Pulse Ox 98.4 F 92 18 137/88 94 08/26/16 08:08 08/26/16 08:08 08/26/16 08:08 08/26/16 08:08 08/26/16 08:08 Oxygen Flow Rate 3 Oxygen Delivery Method Room Air Weight: 115.9 kg Body Mass Index (BMI) 41.9 Finger Stick Blood Glucose 299 Intake and Output for Last 24 Hours 08/24/16 08/25/16 08/26/16 23:59 23:59 23:59 Intake Total 1200 1940 550 Output Total 600 1700 800 Balance 600 240 -250 Laboratory Results 08/25/16 11:13: POC Glucose 323 H 08/25/16 21:44: POC Glucose 281 H 08/26/16 06:40: POC Glucose 237 H Current Medications Acetaminophen (Tylenol) 650 mg PO Q6H PRN PRN PRN Reason: Mild Pain (scale 0-3)/T>100.7 Last Admin: 08/24/16 20:38 Dose: 650 mg Clonazepam (Klonopin) 0.5 mg PO Q8H PRN PRN PRN Reason: ANXIETY Last Admin: 08/25/16 18:41 Dose: 0.5 mg Dextrose (D50w Syringe) 0 gm IV X1 PRN; Protocol PRN Reason: Hypoglycemia Enoxaparin Sodium (Lovenox) 40 mg SC DAILY@1000 [facility] Last Admin: 08/25/16 10:38 Dose: 40 mg Glucagon () 1 mg IM .X1 PRN PRN Reason: Hypoglycemia Insulin Aspart (Novolog Flexpen (Bk)) 0 units SC ACHS ARNULFO PRN Reason: Protocol Last Admin: 08/26/16 06:49 Dose: 4 units Insulin Detemir (Levemir (Bkc)) 15 units SC QHS [facility]PLACED [facility] Last Admin: 08/25/16 21:59 Dose: 15 units Lamotrigine (Lamictal) 150 mg PO DAILY [facility]PL[facility] Last Admin: 08/25/16 10:38 Dose: 150 mg Met[facility]) [facility] Last Admin: 08/26/16 08:10 Dose: 500 mg Nystatin (Mycostatin Powder) 1 applic TOPICAL TID [facility]PLACED [facility] PRN Reason: Protocol Last Admin: 08/26/16 05:40 Dose: 1 applicatio Ondansetron HCl (Zofran) 4 mg IV Q8H PRN PRN PRN Reason: Nausea Quetiapine Fumarate (Seroquel) 300 mg PO BID [facility]PLAC[facility] Last Admin: 08/25/16 21:55 Dose: 300 mg Sodium Chloride () 5 ml IV UD PRN PRN Reason: SALINE FLUSH Last Admin: 08/25/16 22:11 Dose: 5 ml Assessment/Plan 1. Hypoxia, likely related to atelectasis and immobility, resolved. 2. Episode of fever, resolved, was likely due to atelectasis Plan: encourage use of incentive spirometer, 3. Newly diagnosed diabetes mellitus type 2, complicated with HHS at admission, HbA1c is 13.2, blood sugars are fairly controlled, not at goal, Will increase to Levemir 18 units, continue with metformin and ISS. 4. E. coli UTI, completed antibiotics 5. Severe intertrigo, on nystatin powder, improving 6. History of bipolar disorder and anxiety, on Seroquel and Lamictal, continue these medications. 7. DVT prophylaxis was Lovenox. 6.Disposition: Discharged today to [facility]
--- NOTE | 2016-08-26 09:59 | PCM.DC ---
Discharge Diet: Low fat/ Low Cholesterol, 2000 Calorie Control Diet, 2000 mg Sodium Diet Discharge Activity: Return to Normal Activity Additional Instructions: 1. Please monitor your blood sugars 3 times a day. 2. You need to follow-up with your primary care doctor within 2 weeks with a log of your blood sugars. 3. You are on a low-salt, low-fat, diabetic diet. 4. It is important that you move around and exercise a minimum 30 minutes every day, and monitor what you eat. 5. You saw a dietitian in the hospital as well as the nurses have told to how to use your new glucometer with strips. 6. The vision care associate has assisted in getting all his scripts filled and is important that you continue all medications. 7. Would need to follow-up with your psychiatrist for possible adjustment of your seroquel as you have been found to be very sleepy at times in the morning, in the hospital. Allergies/Adverse Reactions: Allergies ciprofloxacin [From Cipro] Allergy (Verified 01/16/16 22:33) Anaphylaxis ciprofloxacin HCl [From Cipro] Allergy (Verified 01/16/16 22:33) Anaphylaxis Iodinated Contrast Media - Oral and [Iodinated Contrast Media - IV Dye] Allergy (Verified 01/16/16 22:33) Rash paliperidone [From Invega] Allergy (Verified 01/16/16 22:33) Rash Penicillins Allergy (Verified 01/16/16 22:33) Unknown Sulfa (Sulfonamide Antibiotics) Allergy (Verified 01/16/16 22:33) Unknown Medications to take at Discharge Clonazepam [Klonopin] 0.5 mg PO Q8H PRN PRN 08/19/13 Lamotrigine [Lamictal] 150 mg PO DAILY 08/19/13 Ergocalciferol [Vitamin D] 50,000 unit PO Q7D 05/07/15 Metformin HCl [Glucophage] 500 mg PO BIDCM #60 tablet 08/25/16 Nystatin Powder [Mycostatin Powder] 1 applic TOPICAL TID #1 bottle 08/25/16 Quetiapine Fumarate [Seroquel] 300 mg PO BID #60 08/25/16 Insulin Glargine,Hum.rec.anlog [Denita Purcell] 18 unit SQ QHS #1 pen 08/26/16 The following prescriptions were given: Insulin Glargine,Hum.rec.anlog [Denita Purcell] 18 unit SQ QHS #1 pen Metformin HCl [Glucophage] 500 mg PO BIDCM #60 tablet Nystatin Powder [Mycostatin Powder] 1 applic TOPICAL TID #1 bottle Primary Care Physician: Callie Figueroa MD [Primary Care Provider] - Please follow up with your Primary Care Physician in: 1-2 weeks Please Follow Up With: MORGAN Cox When: Tuesday Please Follow Up With: Callie Figueroa When: Proposed Discharge Date: 08/26/16
--- NOTE | 2016-08-26 10:04 | DCINST_ITS ---
Discharge Diet: Low fat/ Low Cholesterol, 2000 Calorie Control Diet, 2000 mg Sodium Diet Discharge Activity: Return to Normal Activity Additional Instructions: 1. Please monitor your blood sugars 3 times a day. 2. You need to follow-up with your primary care doctor within 2 weeks with a log of your blood sugars. 3. You are on a low-salt, low-fat, diabetic diet. 4. It is important that you move around and exercise a minimum 30 minutes every day, and monitor what you eat. 5. You saw a dietitian in the hospital as well as the nurses have told to how to use your new glucometer with strips. 6. The [facility] has assisted in getting all his scripts filled and is important that you continue all medications. 7. Would need to follow-up with your psychiatrist for possible adjustment of your seroquel as you have been found to be very sleepy at times in the morning , in the hospital. Allergies/Adverse Reactions: Allergies ciprofloxacin [From Cipro] Allergy (Verified 01/16/16 22:33) Anaphylaxis ciprofloxacin HCl [From Cipro] Allergy (Verified 01/16/16 22:33) Anaphylaxis Iodinated Contrast Media - Oral and [Iodinated Contrast Media - IV Dye] Allergy (Verified 01/16/16 22:33) Rash paliperidone [From Invega] Allergy (Verified 01/16/16 22:33) Rash Penicillins Allergy (Verified 01/16/16 22:33) Unknown Sulfa (Sulfonamide Antibiotics) Allergy (Verified 01/16/16 22:33) Unknown Medications to take at Discharge Clonazepam [Klonopin] 0.5 mg PO Q8H PRN PRN 08/19/13 Lamotrigine [Lamictal] 150 mg PO DAILY 08/19/13 Ergocalciferol [Vitamin D] 50,000 unit PO Q7D 05/07/15 Metformin HCl [Glucophage] 500 mg PO BIDCM #60 tablet 08/25/16 Nystatin Powder [Mycostatin Powder] 1 applic TOPICAL TID #1 bottle 08/25/16 Quetiapine Fumarate [Seroquel] 300 mg PO BID #60 08/25/16 Insulin Glargine,Hum.rec.anlog [Denita Purcell] 18 unit SQ QHS #1 pen 08/26/16 The following prescriptions were given: Insulin Glargine,Hum.rec.anlog [Denita Purcell] 18 unit SQ QHS #1 pen Metformin HCl [Glucophage] 500 mg PO BIDCM #60 tablet Nystatin Powder [Mycostatin Powder] 1 applic TOPICAL TID #1 bottle Primary Care Physician: Callie Figueroa MD [Primary Care Provider] - Please follow up with your Primary Care Physician in: 1-2 weeks Please Follow Up With: MORGAN Cox When: Tuesday Please Follow Up With: Callie Figueroa When: Proposed Discharge Date: 08/26/16
--- NOTE | 2016-08-26 10:05 | PCM.DC.SUM ---
Discharge Date and Diagnosis Date of Admission: 08/22/16 Date of Discharge: 08/26/16 - Primary Discharge Diagnosis HHS Newly diagnosed Type 2 DM - Secondary Discharge Diagnosis Bipolar disorder Anxiety disorder Hospital Course and Treatment Imaging Results: Clinical Impression(s) from Imaging Studies Chest X-Ray 08/22/16 10:15 IMPRESSION: No active pulmonary disease. Electronically Signed: Torito Olmos MD at 10:57 EDT Tel , Service support [phone], Chest X-Ray 08/25/16 08:31 IMPRESSION: Mild stable interstitial changes in the right lung base. No focal alveolar infiltrates are seen Electronically Signed: Deshawn Beatty MD, FACR at 12:01 EDT , Service support [phone], None Operations: None Procedures: None Summary of Care Provided: 65-year-old female with bipolar and anxiety, homeless, resident in [facility] admitted on 08/22/2016 to the emergency department, where she was brought because she was not feeling right. Patient was said to be acting weird in the [facility], and her blood sugars were found to be elevated. Blood sugar on admission was 463, with no gap. She did also complain of a dull achy pain in the epigastric region, shortness of breath, a dry cough without sputum production, lightheadedness and generalized weakness. She did also complain of dysuria, increased thirst, urgency, nocturia and incontinence with coughing. She complains of a significant rash spreading from the left groin to the left lower extremity. Rash looked like severe intertrigo Her active management was: 1. Newly diagnosed diabetes mellitus type 2, complicated with HHS on admission, HbA1c was 13.2, started on Levemir, discharged on Toujoe 18 units nightly, continued on Metformin 500 mg twice daily She needs to follow-up with her primary care doctor with a local for blood sugars, patient will ultimately need monitoring with perhaps home health care but since she is in a homeless half-way home health care would not be applicable for her. 2. Simple uncomplicated E. coli UTI, that is post 3 days of IV ceftriaxone. 3. Severe intertrigo, on nystatin powder, improved 4. History of bipolar disorder and anxiety, on Seroquel and Lamictal, continue these medications. Discharge Diet: Low fat/ Low Cholesterol, 2000 Calorie Control Diet, 2000 mg Sodium Diet Discharge Activity: Return to Normal Activity Home Medications: Medications to take at Discharge Clonazepam [Klonopin] 0.5 mg PO Q8H PRN PRN 08/19/13 Lamotrigine [Lamictal] 150 mg PO DAILY 08/19/13 Ergocalciferol [Vitamin D] 50,000 unit PO Q7D 05/07/15 Metformin HCl [Glucophage] 500 mg PO BIDCM #60 tablet 08/25/16 Nystatin Powder [Mycostatin Powder] 1 applic TOPICAL TID #1 bottle 08/25/16 Quetiapine Fumarate [Seroquel] 300 mg PO BID #60 08/25/16 Insulin Glargine,Hum.rec.anlog [Toujeo Solostar] 18 unit SQ QHS #1 pen 08/26/16 Following Prescrptions Were Given to Patient: Insulin Glargine,Hum.rec.anlog [Toujeo Solostar] 18 unit SQ QHS #1 pen Metformin HCl [Glucophage] 500 mg PO BIDCM #60 tablet Nystatin Powder [Mycostatin Powder] 1 applic TOPICAL TID #1 bottle Primary Care Physician: Callie Figueroa MD [Primary Care Provider] - Please follow up with your Primary Care Physician in: 1-2 weeks Please Follow Up With: MORGAN Cox When: Tuesday Please Follow Up With: Callie Figueroa When: Additional Instructions: 1. Please monitor your blood sugars 3 times a day. 2. You need to follow-up with your primary care doctor within 2 weeks with a log of your blood sugars. 3. You are on a low-salt, low-fat, diabetic diet. 4. It is important that you move around and exercise a minimum 30 minutes every day, and monitor what you eat. 5. You saw a dietitian in the hospital as well as the nurses have told to how to use your new glucometer with strips. 6. The pet care assistant has assisted in getting all his scripts filled and is important that you continue all medications. 7. Would need to follow-up with your psychiatrist for possible adjustment of your seroquel as you have been found to be very sleepy at times in the morning, in the hospital. Disposition: Home Minutes spent on discharge:: 25 Patient Condition:: Stable Meaningful Use Info Meaningful Use Diagnoses (Choose all that apply): None applicable
--- NOTE | 2016-08-26 10:15 | DS.PCM_ITS ---
Discharge Date and Diagnosis Date of Admission: 08/22/16 Date of Discharge: 08/26/16 - Primary Discharge Diagnosis HHS Newly diagnosed Type 2 DM - Secondary Discharge Diagnosis Bipolar disorder Anxiety disorder Hospital Course and Treatment Imaging Results: Clinical Impression(s) from Imaging Studies Chest X-Ray 08/22/16 10:15 IMPRESSION: No active pulmonary disease. Electronically Signed: Torito Olmos MD at 10:57 EDT Tel , Service support [phone], Chest X-Ray 08/25/16 08:31 IMPRESSION: Mild stable interstitial changes in the right lung base. No focal alveolar infiltrates are seen Electronically Signed: Deshawn Beatty MD, FACR at 12:01 EDT , Service support [phone], None Operations: None Procedures: None Summary of Care Provided: 65-year-old female with bipolar and anxiety, homeless, resident in [facility] admitted on 08/22/2016 to the emergency department, where she was brought because she was not feeling right. Patient was said to be acting weird in the [facility] [employer], and her blood sugars were found to be elevated. Blood sugar on admission was 463, with no gap. She did also complain of a dull achy pain in the epigastric region, shortness of breath, a dry cough without sputum production, lightheadedness and generalized weakness. She did also complain of dysuria, increased thirst, urgency, nocturia and incontinence with coughing. She complains of a significant rash spreading from the left groin to the left lower extremity. Rash looked like severe intertrigo Her active management was: 1. Newly diagnosed diabetes mellitus type 2, complicated with HHS on admission , HbA1c was 13.2, started on Levemir, discharged on Toujoe 18 units nightly, continued on Metformin 500 mg twice daily She needs to follow-up with her primary care doctor with a local for blood sugars, patient will ultimately need monitoring with perhaps home health care but since she is in a homeless nursing home home health care would not be applicable for her. 2. Simple uncomplicated E. coli UTI, that is post 3 days of IV ceftriaxone. 3. Severe intertrigo, on nystatin powder, improved 4. History of bipolar disorder and anxiety, on Seroquel and Lamictal, continue these medications. Discharge Diet: Low fat/ Low Cholesterol, 2000 Calorie Control Diet, 2000 mg Sodium Diet Discharge Activity: Return to Normal Activity Home Medications: Medications to take at Discharge Clonazepam [Klonopin] 0.5 mg PO Q8H PRN PRN 08/19/13 Lamotrigine [Lamictal] 150 mg PO DAILY 08/19/13 Ergocalciferol [Vitamin D] 50,000 unit PO Q7D 05/07/15 Metformin HCl [Glucophage] 500 mg PO BIDCM #60 tablet 08/25/16 Nystatin Powder [Mycostatin Powder] 1 applic TOPICAL TID #1 bottle 08/25/16 Quetiapine Fumarate [Seroquel] 300 mg PO BID #60 08/25/16 Insulin Glargine,Hum.rec.anlog [Toujeo Solostar] 18 unit SQ QHS #1 pen 08/26/16 Following Prescrptions Were Given to Patient: Insulin Glargine,Hum.rec.anlog [Toujeo Solostar] 18 unit SQ QHS #1 pen Metformin HCl [Glucophage] 500 mg PO BIDCM #60 tablet Nystatin Powder [Mycostatin Powder] 1 applic TOPICAL TID #1 bottle Primary Care Physician: Callie Figueroa MD [Primary Care Provider] - Please follow up with your Primary Care Physician in: 1-2 weeks Please Follow Up With: MORGAN Cox When: Tuesday Please Follow Up With: Callie Figueroa When: Additional Instructions: 1. Please monitor your blood sugars 3 times a day. 2. You need to follow-up with your primary care doctor within 2 weeks with a log of your blood sugars. 3. You are on a low-salt, low-fat, diabetic diet. 4. It is important that you move around and exercise a minimum 30 minutes every day, and monitor what you eat. 5. You saw a dietitian in the hospital as well as the nurses have told to how to use your new glucometer with strips. 6. The manager home healthcare has assisted in getting all his scripts filled and is important that you continue all medications. 7. Would need to follow-up with your psychiatrist for possible adjustment of your seroquel as you have been found to be very sleepy at times in the morning , in the hospital. Disposition: Home Minutes spent on discharge:: 25 Patient Condition:: Stable Meaningful Use Info Meaningful Use Diagnoses (Choose all that apply): None applicable
--- NOTE | 2016-08-26 10:21 | CASEMGMT ---
SW spoke w/Dr. Rivera, she would like home health for pt. She also changed one script, the dose of pt's Toujeo has changed. SW faxed the new script to [facility]. SW called [facility], spoke w/Lissy. They will not allow home health into [facility]. They also will not allow [facility]. Also, as per Lissy, pt has been urinating in the bed, and if she does it again, she will have to leave [facility]. She can only stay for 30 days total at [facility] as per Lissy. Pt was at [facility] prior to [facility]. SW spoke w/Samuel Howell, pt's child welfare caseworker at [facility]. SW asked if she got the message regarding pt's appointments, she did. SW asked her about assisting pt in getting housing, as it is this SW's understanding pt has vouchers for her housing, but is at [facility] and only has a short time left she can be there. Additionally, SW let her know pt is incontinent and [facility] will have to leave if she urinates in the bed one more time. Samuel states she has tried to assist the pt, has not seen her in months. She states she did not know pt was at [facility], thought pt was still at [facility]. She states she makes appointments w/pt to help her with housing, and pt will refuse to see Samuel, tells her not today. Samuel did make an appointment to see pt TuesdayAugust 30 at 10:30am. SW spoke w/pt about returning to [facility]. She does need transport. SW let her know that [facility] will deliver her medication this afternoon to [facility]. SW spoke w/pt about being incontinent and that if she continues to be incontinent, she will not be able to stay there. SW inquired if she spoke w/Lissy about this, she states no. She states this only happened a couple of times. SW asked pt about housing. Pt states it's complicated, SW does not understand. Pt states she needs her Klonopin. SW explained will ask the RN about this. SW asked pt if she has her voucher, she states yes, has a place in mind also to go, but has not been able to call, has been too busy. SW explained that SW spoke w/her child welfare caseworker Samuel, and Samuel says she is willing to help pt with housing. Pt states Samuel wants pt to do everything herself, states she does not want to help her. Pt states she has no way to get to appointments. SW explained that Samuel said she would take her. SW said Samuel is coming to see her Tuesday at 10:30am at [facility]. Pt states she does not want to talk to Samuel. SW explained to pt she needs to let someone help her with her housing. SW asked what she will do once she cannot stay at [facility] anymore, explained as per [facility] she can only stay a month. Pt states other people are there 2-3 months. SW explained that can tell her generally, people are there for a month. Pt states she really needs her Klonopin now, SW said will let pt's RN know. She states she will go stay at [facility] for a couple weeks if needed. SW asked if she feels she can manage at [facility], pt states she does not know, she states she is very sleepy. SW asked about long-term placement, pt states she does not know. She then states she is more concerned about her son who is in long term at present. SW did review chart for SNF placement, pt walked 250 feet and pt is independent with ADL's, would likely not qualify for SNF under insurance. SW let pt's RN know that pt is asking for Klonopin. ELVIN confirmed hospital van for 1:30pm. SW explained to pt that the hospital van is set up for 1:30pm. SW let her know reviewed chart, it does not look like pt will qualify for long-term under insurance. Pt is concerned about her clothes, that she does not have any dry clothes to wear back. SW asked the RN and the [employer] to get her clothes out for her to check them. Also, pt's appts were changed, MORGAN Cox is now 08/31 at 4:30pm and PCP is with Dr. Manzanares on 09/02 at 11:40am. RN will let pt know about the appts. SW left a message for pt's child welfare caseworker Samuel to let her know about the appointment changes. ELVIN spoke w/Brenda at [facility], she did receive the new script for different dose of Toujeo, they will deliver pt's meds to her after 2pm at [facility]. Release for SW to speak w/[facility] and placed on chart. No further needs anticipated. RAMILA Hewitt ,ENVELOPE ADDRESSER
[2016-08-26] MEDS: Enoxaparin 40 MG/0.4 ML Syringe SC (10:22)
[2016-08-26 11:20] LABS: Bedside Glucose 293 mg/dL (70-110)
[2016-08-26 13:00] VITALS: BP 160/74; PULSE 94; RESP 18; TEMP 37.1; O2SAT 97
== END 2016-08-26 13:20 | disposition home or self-care (01) | DRG 420 ==
LOC: ED 02-27 13:38 → MS2 02-27 13:38
PROVIDERS: Internal Medicine; Student in an Organized Health Care Education/Training Program; Admitting Provider Internal Medicine; Emergency Provider Emergency Medicine; Family Provider Family Medicine; PCP Family Medicine; Visit Provider Internal Medicine
DX: E11.00 Type 2 diabetes mellitus with 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 nonketotic hyperglycemic-hyperosmolar coma (NKHHC) (principal); E11.65 Type 2 diabetes mellitus with hyperglycemia; N39.0 Urinary tract infection, site not specified; B96.20 Unspecified Escherichia coli [E. coli] as the cause of diseases classified elsewhere; R32 Unspecified urinary incontinence; E87.1 Hypo-osmolality and hyponatremia; L30.4 Erythema intertrigo; R09.02 Hypoxemia; E86.0 Dehydration; Z59.0 Homelessness; Z88.0 Allergy status to penicillin; E66.9 Obesity, unspecified; Z68.41 Body mass index [BMI] 40.0-44.9, adult; F31.9 Bipolar disorder, unspecified; F41.9 Anxiety disorder, unspecified; F17.210 Nicotine dependence, cigarettes, uncomplicated; Z79.899 Other long term (current) drug therapy; R06.00 Dyspnea, unspecified; R53.83 Other fatigue
CPT/HCPCS: 36415; 71010; 71020; 80048; 80053; 80074; 81001; 82962; 83036; 83605; 83690; 85025; 87086; 87088; 87186; 93005; 97161; 97166; 97802; 99218; 99285; 99406; J7030; G0378

== ENCOUNTER 2017-08-02 11:54 | Observation (INO) | payer MEDICAID, SELFPAY ==
[2017-08-02] VITALS (10 sets, daily range): BP systolic 123–166; BP diastolic 67–110; PULSE 97–138; RESP 16–22; TEMP 36.8–37.6; O2SAT 94–98; BMI 39.7; BMI 39.8; BMI 39.3
--- NOTE | 2017-08-02 12:23 | EKG12_ITS ---
Test Reason : REPEAT Blood Pressure : / mmHG Vent. Rate : 096 BPM Atrial Rate : 096 BPM P-R Int : 164 ms QRS Dur : 092 ms QT Int : 372 ms P-R-T Axes : 041 -20 034 degrees QTc Int : 469 ms Normal sinus rhythm Normal ECG Confirmed by ARCENIO LEAL, NAEEM ([id number]), television news video editor GUERRERO AGUERO ([id number]) on 08/03/2017 2:20:42 PM Referred By: SREEKANTH Confirmed By:NAEEM RG MD
--- NOTE | 2017-08-02 12:36 | EKG12_ITS ---
Test Reason : SOB Blood Pressure : / mmHG Vent. Rate : 112 BPM Atrial Rate : 112 BPM P-R Int : 174 ms QRS Dur : 090 ms QT Int : 342 ms P-R-T Axes : 052 -17 027 degrees QTc Int : 466 ms Sinus tachycardia Otherwise normal ECG Confirmed by ARCENIO LEAL, ANEEM ([id number]), assistant production editor GUERRERO AGUERO ([id number]) on 08/03/2017 2:29:28 PM Referred By: JACE/SREEKANTH Confirmed By:NAEEM RG MD
[2017-08-02 13:20] LABS: Absolute Lymphocyte Count 1.44 X10^3/ul (0.83-4.51); Absolute Neutrophil Count 6.3 X10^3/uL (2.0-7.7); Basophil# 0.02 X10^3/uL; Basophil% 0.2 % (0-1); Eosinophil# 0.06 X10^3/uL; Eosinophils% 0.7 % (0-5); Hematocrit 43.5 % (37-47); Hemoglobin 14.7 g/dl (12.0-15.0); Lymphocyte # 1.44 X10^3/ul (4.0); Lymphocyte % 16.9 % (19-41); Mean Corp Hgb Conc 33.8 g/gl (32-36); Mean Corpuscular Hgb 30.2 pg (27.0-32.0); Mean Corpuscular Volume 89.5 fL (81-99); Mean Platelet Vol. 11.4 fl (6.2-12.0); Monocyte# 0.73 X10^3/uL; Monocyte% 8.5 % (0-10); Neutrophil # 6.27 X10^3/uL (2.7-7.7); Neutrophil % 73.5 % (47-70); Platelet Count 164 K/mm3 (150-450); RBC Distribution Width CV 14.2 % (11.6-14.6); RBC Distribution Width SD 46.3 fl (35.1-43.9); Red Blood Count 4.86 M/mm3 (4.2-5.4); White Blood Count 8.5 K/mm3 (4.4-11.0)
[2017-08-02 13:24] LABS: POSITIVE COUNT NO; POSITIVE DIFFERENTIAL NO; POSITIVE MORPHOLOGY NO
[2017-08-02 13:28] LABS: Anion Gap 9 (5-15); BUN 10 mg/dL (7-18); BUN/Creat Ratio 14.4 RATIO (10-20); Calcium,Total 8.6 mg/dL (8.5-10.1); Chloride 106 mmol/L (98-107); Creatinine, Serum 0.69 mg/dL (0.55-1.02); EST Glomerular Filtration Rate 90 mL/min (>60); Est Glom Filt Rate - Afr Amer 109 mL/min (>60); Estimated Creatinine Clearance 74.12 ml/min; Glucose 200 mg/dL (74-106); Sodium Level 141 mmol/L (136-145)
--- NOTE | 2017-08-02 13:55 | ED.RN ---
LACTIC ACID 2.6
[2017-08-02 13:56] LABS: Lactic Acid 2.6 mmol/L (0.4-2.0)
--- NOTE | 2017-08-02 14:20 | ED.DCSUM_ITS ---
- ER Visit Summary Date of Service: 08/02/17 Chief Complaint: Rash and wounds History of Present Illness: The patient is a 66 F who presents with a rash. She is diabetic. She was diagnosed with intertrigo. Has been using Desenex powder. However her symptoms continue to worsen. She can planes of increased pain drainage and odor. No fevers or vomiting. She does report decreased p.o. intake. Physical Examination: Initial heart rate 138 and hypertensive at 166/110 Moist mucous membranes Heart regular rhythm tachycardia Lungs are clear Abdomen soft Patient has severe intertrigo of the groin under the pannus and under the breasts there is a foul odor and erythema consistent with secondary cellulitis Test Results: Laboratory studies notable for hypokalemia with a potassium of 3.0 and lactic acid 2.6. Emergency Department Course and Treatment: Was treated with IV clindamycin given multiple antibiotics allergies. Her potassium was replaced IV and she was also given IV fluids. She was discussed with hospitalist will be admitted. Treatment Plan: [] Disposition: Admit Impression: Intertrigo with secondary cellulitis Lactic acidosis This note was generated with [employer] dictation software. It may contain incorrect words, spelling, and punctuation that were not noted in review of the chart prior to signing ED Disposition - Plan for ED Patient: Chief Complaint: Rash Referrals: Callie Figueroa MD [Primary Care Provider] -
[2017-08-02] MEDS: 0.9% Normal Saline 1,000 ML 999 ML IV (14:36)
--- NOTE | 2017-08-02 14:48 | PCM.HP.STD ---
<Kevyn Myers - Last Filed: 08/02/17 14:48> Problem List (1) Sepsis Status: Acute (2) Cellulitis Status: Acute (3) Bipolar disorder Status: Chronic (4) DM2 (diabetes mellitus, type 2) Status: Chronic History of Present Illness Date of Admission: 08/02/17 Chief Complaint: rash The patient is a 66 year old F with a hx of T2DM, intertrigo, HTN, and bipolar disorder, who presents to the ER with painful cellulitis located under her breasts, abdominal folds, and in between her buttocks. This has been progressively worsening for about a week and a half. She has previously had had problems in these areas with intertrigo and has tried using desenex powder with no relief. She had a flare up of intertrigo last December while she was admitted to [facility]. She has significant pain and has started having hot and cold flashes at home, with episodic sweats. She has one area where there is an open sore on her abdomen. The area is moist and macerated, no purulent drainage. It is very foul smelling. She has not been on other outpatient antibiotics. She has difficulty sitting up due to severe pain. [] Past Medical History Past Medical History (Chronic Problems): Chronic Problems Bipolar disorder (Chronic) Depression (Chronic) Lymphedema (Chronic) DM2 (diabetes mellitus, type 2) (Chronic) Allergies ciprofloxacin [From Cipro] Allergy (Verified 06/23/17 10:11) Anaphylaxis ciprofloxacin HCl [From Cipro] Allergy (Verified 06/23/17 10:11) Anaphylaxis Iodinated Contrast- Oral and IV Dye [Iodinated Contrast Media - IV Dye] Allergy (Verified 06/23/17 10:11) Rash paliperidone [From Invega] Allergy (Verified 06/23/17 10:11) Rash Penicillins Allergy (Verified 08/02/17 14:37) RASH AND ITCHING red dye Allergy (Verified 08/02/17 14:48) Hives Sulfa (Sulfonamide Antibiotics) Allergy (Verified 06/23/17 10:11) Unknown metformin Adverse Reaction (Verified 06/23/17 10:11) Nausea/Vom/Diarrhea shellfish derived Adverse Reaction (Verified 08/02/17 14:48) Nausea/Vom/Diarrhea Home Medications: Ambulatory Orders Medication Instructions Recorded Clonazepam [Klonopin] 0.5 mg PO TID 10/28/16 Insulin Glargine,Hum.rec.anlog 18 unit SQ QHS 10/28/16 [Tokaran Seear] Lamotrigine [Lamictal] 100 mg PO DAILY 10/28/16 Quetiapine Fumarate [Seroquel XR] 600 mg PO QHS 10/28/16 Surgical History: - - ankle surgery Psychiatric History: Anxiety, Bipolar [employer] P[employer]ER History: No pertinent [employer]TR[employer]T P[employer]CHER history Lives: Alone Smoking Status: Former smoker Tobacco Use: Non-smoker Alcohol: None Drugs: None - *Family History Maternal History Items: Heart Disease Paternal History Items: Stroke Review of Systems Constitutional: Denies: Chills, Fever, Weight Change HEENT: Denies: Head Aches, Sinus Congestion, Sinus Drainage Cardiovascular: Denies: Chest Pain, Palpitations Respiratory: Denies: Cough, Shortness of breath at rest, Sputum production Gastrointestinal: Denies: Abdominal Pain, Nausea, Vomiting Genitourinary: Denies: Dysuria Musculoskeletal: Denies: Joint Pain, Joint Tenderness Skin: Reports: - - erythematous areas in skin folds, breasts, abdomen, gluteal, with satellite lesions, open area in the right skin fold. No purulence. Tender to palp. Macerated tissue along pannus. Denies: Rash, Wounds Neurological: Denies: Numbness, Tingling, Focal weakness Psychiatric: Denies: Anxiety, Depression, Homicidal Ideations, Suicidal Ideations Hematologic/ Lymphatic: Denies: Easy Bruising, Easy Bleeding VTE Information - Inpt Only VTE Present on Admission: No VTE Mechan Device Prophylaxis: SCD's VTE Pharm Prophylaxis ordered?: Yes Patient Problems: Active and Suspected Problems Sepsis (Acute) Cellulitis (Acute) - Physical Exam General: Alert, Oriented x3, Cooperative HEENT: Atraumatic, PERRLA, EOMI, Normocephalic Neck: Supple, No JVD, Negative Carotid Bruits Lungs: Clear to auscultation, Normal air movement Cardiovascular: No murmurs, Tachycardic Abdomen: Bowel Sounds Present, Soft, Non Tender, Obese Extremities: No edema, Capillary Refill Less than 3 Seconds Skin: No rashes, No breakdown Musculoskeletal: No Tenderness to Palpation of Joints or Extremities Neurological: Cranial nerves II-XII grossly intact Psych/Mental Status: Normal Affect, Appropriate, Alert and oriented to time, place, person, mood and affect Vital Signs Temp Pulse Resp BP Pulse Ox 98.2 F 97 16 159/86 H 96 08/02/17 11:54 08/02/17 14:39 08/02/17 14:39 08/02/17 14:39 08/02/17 14:39 Oxygen Delivery Method Room Air Weight: 108.409 kg Body Mass Index (BMI) 39.7 Finger Stick Blood Glucose 231 Laboratory Tests Past 24 Hrs 08/02/17 08/02/17 08/02/17 12:55 12:55 12:55 WBC 8.5 RBC 4.86 Hgb 14.7 Hct 43.5 MCV 89.5 MCH 30.2 MCHC 33.8 RDW 14.2 RDW Differential 46.3 H Plt Count 164 MPV 11.4 Immature Gran % (Auto) 0.200 Neut % (Auto) 73.5 H Lymph % (Auto) 16.9 L [place] % (Auto) 8.5 Eos % (Auto) 0.7 Baso % (Auto) 0.2 Absolute Neuts (auto) 6.3 Absolute Lymphs (auto) 1.44 Total Counted Not Reportable Sodium 141 Potassium 3.0 L Chloride 106 Carbon Dioxide 26.0 Anion Gap 9 BUN 10 Creatinine 0.69 Estim Creat Clear Calc 74.12 Est GFR (MDRD) Af Amer 109 Est GFR (MDRD) Non-Af 90 BUN/Creatinine Ratio 14.4 Glucose 200 H Lactic Acid 2.6 H Calcium 8.6 Assessment/Plan Active and Suspected Problems Sepsis (Acute) Cellulitis (Acute) 1. Acute sepsis 2/2 panniculitis, intertrigo in a diabetic patient- elevated lactate, tachycardic, tachypneic, afebrile and no leukocytosis currently. failed miconazole topical therapy. Pt with multiple drug allergies. ID will be consulted. Given dose of clinda in ER. Will be started on aztreonam. Blood cultures pending. Obtain wound cultures, staph/MRSA screen. Pt will be given IV fluids and lactate rechecked. 2. DM - insulin dependent, she thinks she is type 1 but gives a conflicting story about her director institution telling her that she can get off of insulin therapy with better control. Continue long acting and add sliding scale. 3. Hypokalemia - repleted in ER. recheck in AM. 4. Bipolar disorder/anxiety/insomnia - continue outpatient meds 5. HTN - poorly controlled in ER. Likely needs started on meds, if she remains elevated after admission will plan to start lisinopril. DVT ppx: lovenox DC planning: lives alone. Not reporting debility, but she does not appear to be taking care of herself. Will monitor for weakness. This patient was seen by Kevyn Myers PA-C under the supervision of Doctor Miguel. <Marjorie Rivera - Last Filed: 08/02/17 17:28> Problem List (1) Sepsis Status: Acute Qualifiers: Sepsis type: sepsis due to unspecified organism Qualified Code(s): A41.9 - Sepsis, unspecified organism (2) Cellulitis Status: Acute Qualifiers: Site of cellulitis: other site Qualified Code(s): L03.818 - Cellulitis of other sites (3) Bipolar disorder Status: Chronic Qualifiers: Current bipolar episode type: mixed Current episode severity: unspecified (4) DM2 (diabetes mellitus, type 2) Status: Chronic Qualifiers: Diabetes mellitus complication status: without complication History of Present Illness The patient is a 66 year old F [] Past Medical History Allergies ciprofloxacin [From Cipro] Allergy (Verified 06/23/17 10:11) Anaphylaxis ciprofloxacin HCl [From Cipro] Allergy (Verified 06/23/17 10:11) Anaphylaxis Iodinated Contrast- Oral and IV Dye [Iodinated Contrast Media - IV Dye] Allergy (Verified 06/23/17 10:11) Rash paliperidone [From Invega] Allergy (Verified 06/23/17 10:11) Rash Penicillins Allergy (Verified 08/02/17 14:37) RASH AND ITCHING red dye Allergy (Verified 08/02/17 14:48) Hives Sulfa (Sulfonamide Antibiotics) Allergy (Verified 08/02/17 14:49) RASH AND ITCHING metformin Adverse Reaction (Verified 06/23/17 10:11) Nausea/Vom/Diarrhea shellfish derived Adverse Reaction (Verified 08/02/17 14:48) Nausea/Vom/Diarrhea - Physical Exam Vital Signs Temp Pulse Resp BP Pulse Ox 99.6 F H 99 16 148/75 H 94 08/02/17 16:10 08/02/17 16:10 08/02/17 16:10 08/02/17 16:10 08/02/17 16:10 Oxygen Delivery Method Room Air Weight: 107.2 kg Body Mass Index (BMI) 39.3 POC Glucose 08/02/17 16:27 POC Glucose 164 H Assessment/Plan This patient was seen in conjunction with DREW Díaz. I have independently interviewed and examined the patient and reviewed pertinent historical, laboratory, and other data. Please refer to DREW Díaz note for his patient's presentation, findings, and recommendations. I have reviewed and his note and concur with his documentation. Patient comes in with complains of worsening intertriginous infection, ongoing since almost 2 weeks, with foul odor and yellowish discharge. Has some associated fever and chills. Denies any CP, dizziness, SOB. She has pain with movement Physical Exam: Gen: Looks in some discomfort, not pale, not jaundiced, morbidly obese CVS:HS I +II, regular, tachycardic RESP: Diminished at lung bases GI: Full, obese, soft, nontender, no palpable organs EXT:No edema Skin: Erythema of the intertriginous areas with yellowish exudate, moist excoriations, worse in the groin ASSESSMENT: 1. Sepsis secondary to candidal intertriginous with superimposed secondary bacterial cellulitis 2. Type 2 DM, 3. Bipolar disorder/anxiety 4. Hypokalemia 5. Hypertension, uncontrolled 6. Multiple drug allergies Plan: Admitted to PCU, IV fluids, IV vancomycin, Aztreonam, ID consult, wound care consult, labs in am, nystatin powder, will hold off on oral diflucan and let ID decide considering the extent of candidal infection. Code Visit Inpatient E&M: 91202 Init Hosp L3
[2017-08-02 16:31] LABS: Bedside Glucose 164 mg/dL (70-110)
[2017-08-02] MEDS: Nystatin Ointment 1 APPLIC TOPICAL ×2 (16:31→22:21)
[2017-08-02 17:07] LABS: Reflex Lactate? Y
[2017-08-02] MEDS: Lisinopril 10 MG Tablet PO (18:37)
[2017-08-02] MEDS: QUEtiapine 100 MG Tablet 300 MG PO (22:23)
[2017-08-02] MEDS: clonazePAM 0.5 MG Tablet PO (22:31)
[2017-08-02 22:35] LABS: Bedside Glucose 172 mg/dL (70-110)
[2017-08-03] VITALS (10 sets, daily range): BP systolic 101–131; BP diastolic 57–69; PULSE 87–124; RESP 16–18; TEMP 36.5–37.6; O2SAT 93–98
[2017-08-03] MEDS: oxyCODONE 5 MG Tablet PO (04:24)
[2017-08-03 05:55] LABS: Hematocrit 39.5 % (37-47); Hemoglobin 13.6 g/dl (12.0-15.0); Mean Corp Hgb Conc 34.4 g/gl (32-36); Mean Corpuscular Hgb 31.1 pg (27.0-32.0); Mean Corpuscular Volume 90.2 fL (81-99); Mean Platelet Vol. 11.5 fl (6.2-12.0); Platelet Count 148 K/mm3 (150-450); RBC Distribution Width CV 14.3 % (11.6-14.6); RBC Distribution Width SD 46.7 fl (35.1-43.9); Red Blood Count 4.38 M/mm3 (4.2-5.4); White Blood Count 6.5 K/mm3 (4.4-11.0)
[2017-08-03] MEDS: Nystatin Ointment 1 APPLIC TOPICAL ×3 (05:55→21:01)
[2017-08-03 05:58] LABS: Scan Indicated on CBC? Y/N NO
[2017-08-03] MEDS: clonazePAM 0.5 MG Tablet PO ×2 (05:58→21:00)
[2017-08-03 06:17] LABS: Anion Gap 7 (5-15); BUN 9 mg/dL (7-18); BUN/Creat Ratio 15.3 RATIO (10-20); Calcium,Total 8.7 mg/dL (8.5-10.1); Chloride 108 mmol/L (98-107); Creatinine, Serum 0.59 mg/dL (0.55-1.02); EST Glomerular Filtration Rate 109 mL/min (>60); Est Glom Filt Rate - Afr Amer 132 mL/min (>60); Estimated Creatinine Clearance 86.68 ml/min; Glucose 104 mg/dL (74-106); Potassium 3.7 mmol/L (3.5-5.1); Sodium Level 140 mmol/L (136-145)
[2017-08-03 07:06] LABS: Bedside Glucose 122 mg/dL (70-110)
[2017-08-03] MEDS: QUEtiapine 100 MG Tablet 300 MG PO (08:56)
[2017-08-03] MEDS: Lisinopril 10 MG Tablet PO (08:56)
[2017-08-03] MEDS: lamoTRIgine 100 MG Tablet PO (08:57)
[2017-08-03] MEDS: Enoxaparin 40 MG/0.4 ML Syringe SC (08:57)
[2017-08-03 11:36] LABS: Bedside Glucose 145 mg/dL (70-110)
--- NOTE | 2017-08-03 11:50 | PCM.HP.ID ---
Problem List (1) Cellulitis Status: Acute Qualifiers: Site of cellulitis: other site Qualified Code(s): L03.818 - Cellulitis of other sites Reason for Consult: cellulitis Consulted by: Dr. Caal History of Present Illness: The patient is a 66 year old F with h/o bipolar who presented to ED yesterday with one week of redness in groin, lower abd, under her breasts, and between buttocks. No fever. Mild pain, no drainage. Open sore in lower abd. Has prior h/o admission for similar infection. In ED, lactate was 2.6. Started on vanc/aztreonam. Full ROS performed and neg except as noted above. - Medical History Past Medical History (Chronic Problems): Chronic Problems Bipolar disorder (Chronic) Depression (Chronic) Lymphedema (Chronic) DM2 (diabetes mellitus, type 2) (Chronic) Allergies/Adverse Reactions: Allergies ciprofloxacin [From Cipro] Allergy (Verified 06/23/17 10:11) Anaphylaxis ciprofloxacin HCl [From Cipro] Allergy (Verified 06/23/17 10:11) Anaphylaxis Iodinated Contrast- Oral and IV Dye [Iodinated Contrast Media - IV Dye] Allergy (Verified 06/23/17 10:11) Rash paliperidone [From Invega] Allergy (Verified 06/23/17 10:11) Rash Penicillins Allergy (Verified 08/02/17 14:37) RASH AND ITCHING red dye Allergy (Verified 08/02/17 14:48) Hives Sulfa (Sulfonamide Antibiotics) Allergy (Verified 08/02/17 14:49) RASH AND ITCHING metformin Adverse Reaction (Verified 06/23/17 10:11) Nausea/Vom/Diarrhea shellfish derived Adverse Reaction (Verified 08/02/17 14:48) Nausea/Vom/Diarrhea Home Medications: Ambulatory Orders Medication Instructions Recorded Clonazepam [Klonopin] 0.5 mg PO TID 10/28/16 Insulin Glargine,Hum.rec.anlog 18 unit SQ QHS 10/28/16 [Toujegabe Solostar] Lamotrigine [Lamictal] 100 mg PO DAILY 10/28/16 Quetiapine Fumarate [Seroquel XR] 600 mg PO QHS 10/28/16 - Social History SMOKING STATUS:: Former smoker Vital Signs Temp Pulse Resp BP Pulse Ox 97.8 F 91 16 105/57 L 93 08/03/17 08:54 08/03/17 10:56 08/03/17 08:54 08/03/17 08:54 08/03/17 08:54 Oxygen Delivery Method Room Air Weight: 108.3 kg Body Mass Index (BMI) 39.3 Laboratory Tests Past 24 Hrs 08/02/17 08/03/17 08/03/17 17:19 05:25 05:25 WBC 6.5 RBC 4.38 Hgb 13.6 Hct 39.5 MCV 90.2 MCH 31.1 MCHC 34.4 RDW 14.3 RDW Differential 46.7 H Plt Count 148 L MPV 11.5 Sodium 140 Potassium 3.7 Chloride 108 H Carbon Dioxide 25.0 Anion Gap 7 BUN 9 Creatinine 0.59 Estim Creat Clear Calc 86.68 Est GFR (MDRD) Af Amer 132 Est GFR (MDRD) Non-Af 109 BUN/Creatinine Ratio 15.3 Glucose 104 Lactic Acid 2.0 Calcium 8.7 S.aureus Protein A PCR MRSA (PCR) 08/03/17 10:15 WBC RBC Hgb Hct MCV MCH MCHC RDW RDW Differential Plt Count MPV Sodium Potassium Chloride Carbon Dioxide Anion Gap BUN Creatinine Estim Creat Clear Calc Est GFR (MDRD) Af Amer Est GFR (MDRD) Non-Af BUN/Creatinine Ratio Glucose Lactic Acid Calcium S.aureus Protein A PCR Pending MRSA (PCR) Pending - Other Studies Radiology: [] reviewed Other Studies: [] Route of nutrition/ use of supplements: [] Nutritional Intake: [] IV Site: [] Connell Catheter: [] - Physical Exam General: Oriented x3, Cooperative, No apparent distress, Lethargic HEENT: Atraumatic, PERRLA, EOMI Neck: Supple, No Nodes Lungs: Clear to auscultation, Normal air movement Cardiovascular: Regular rate, Regular Rhythm Abdomen: Bowel Sounds Present, Soft, Non Tender, Non-Distended Extremities: No edema Skin: Rash Present - in inguinal folds, lower abd, under breasts. Minimal warmth and tenderness. Small shallow ulcer on lower abd. No drainage. Musculoskeletal: No Tenderness to Palpation of Joints or Extremities Neurological: Cranial nerves II-XII grossly intact - Assessment/Plan Antibiotics: [] Assessment/Plan: [] Active and Suspected Problems Sepsis (Acute) Cellulitis (Acute) Has previously tolerated ceftriaxone. No purulence, so low suspicion for MRSA. Concern for yeast component. Wound swab pending. Will change abx to cefazolin and fluconazole. Thank you, will follow, d/w nursing.
[2017-08-03 12:24] LABS: M R Staph aureus DNA By PCR Negative (Negative); Probe Check PASS; Specimen Processing Control PASS; Staph aureus DNA By PCR NEGATIVE (Negative)
[2017-08-03] MEDS: Fluconazole 100 MG Tablet 400 MG PO (12:56)
[2017-08-03] MEDS: Cefazolin 2 GM in 0.9% Normal Saline 100 ML IV ×2 (12:56→21:00)
--- NOTE | 2017-08-03 13:42 | PN_ITS ---
Patient Problems: Active and Suspected Problems Sepsis (Acute) Cellulitis (Acute) Subjective: No fevers or chills overnight. Pain improved. No palp, tachy improved. No dizziness/LH. No N/V. - Physical Exam General: Alert, Oriented x3, Cooperative HEENT: Atraumatic, PERRLA, EOMI, Normocephalic Neck: Supple, No JVD, Negative Carotid Bruits Lungs: Clear to auscultation, Normal air movement Cardiovascular: Regular rate, No murmurs Abdomen: Bowel Sounds Present, Soft, Non Tender Extremities: No edema, Capillary Refill Less than 3 Seconds Skin: - - gluteal, abdominal, breast intertrigo Musculoskeletal: No Tenderness to Palpation of Joints or Extremities Neurological: Cranial nerves II-XII grossly intact Psych/Mental Status: Normal Affect, Appropriate, Alert and oriented to time, place, person, mood and affect Vital Signs Temp Pulse Resp BP Pulse Ox 97.8 F 91 16 105/57 L 93 08/03/17 08:54 08/03/17 10:56 08/03/17 08:54 08/03/17 08:54 08/03/17 08:54 Oxygen Delivery Method Room Air Weight: 108.3 kg Body Mass Index (BMI) 39.3 Intake and Output for Last 24 Hours 08/01/17 08/02/17 08/03/17 23:59 23:59 23:59 Intake Total 1549 / 1549 1513 / 1513 Balance 1549 / 1549 1513 / 1513 Laboratory Tests Past 24 Hrs 08/02/17 08/03/17 08/03/17 17:19 05:25 05:25 WBC 6.5 RBC 4.38 Hgb 13.6 Hct 39.5 MCV 90.2 MCH 31.1 MCHC 34.4 RDW 14.3 RDW Differential 46.7 H Plt Count 148 L MPV 11.5 Sodium 140 Potassium 3.7 Chloride 108 H Carbon Dioxide 25.0 Anion Gap 7 BUN 9 Creatinine 0.59 Estim Creat Clear Calc 86.68 Est GFR (MDRD) Af Amer 132 Est GFR (MDRD) Non-Af 109 BUN/Creatinine Ratio 15.3 Glucose 104 Lactic Acid 2.0 Calcium 8.7 S.aureus Protein A PCR MRSA (PCR) 08/03/17 10:15 WBC RBC Hgb Hct MCV MCH MCHC RDW RDW Differential Plt Count MPV Sodium Potassium Chloride Carbon Dioxide Anion Gap BUN Creatinine Estim Creat Clear Calc Est GFR (MDRD) Af Amer Est GFR (MDRD) Non-Af BUN/Creatinine Ratio Glucose Lactic Acid Calcium S.aureus Protein A PCR NEGATIVE MRSA (PCR) Negative POC Glucose 08/03/17 08/03/17 08/02/17 11:08 06:58 22:16 POC Glucose 145 H 122 H 172 H 08/02/17 16:27 POC Glucose 164 H Assessment/Plan Active and Suspected Problems Sepsis (Acute) Cellulitis (Acute) 1. Acute sepsis 2/2 panniculitis, intertrigo in a diabetic patient- tachy improved. afebrile. lactate now neg. ID following, abx changed to cefazolin and fluconazole. MSSA/MRSA screen negative. Wound cultures pending. Blood cultures pending. Wound care consulted. 2. DM - insulin dependent, she thinks she is type 1 but gives a conflicting story about her environmental program manager telling her that she can get off of insulin therapy with better control. Continue long acting and add sliding scale. 3. Hypokalemia - repleted 4. Bipolar disorder/anxiety/insomnia - continue outpatient meds 5. HTN - improved on lisinopril DVT ppx: lovenox DC planning: lives alone. Not reporting debility, but she does not appear to be taking care of herself. Will monitor for weakness. This patient was seen by Kevyn Myers PA-C under the supervision of Doctor Caal
--- NOTE | 2017-08-03 14:30 | CASEMGMT ---
CHART REVIEW: ADM DX: SEVERE SEPSIS WITH CELLULITIS. LACE Strata 2. The patient is a 66 year old F with a hx of T2DM, intertrigo, HTN, depression, and bipolar disorder, who presented to the ER with painful cellulitis located under her breasts, abdominal folds, and in between her buttocks. Per physician report, pt had a flare up of intertrigo last December while she was admitted to [facility]. Pt has c/o significant pain, and has started having hot and cold flashes at home, with episodic sweats. Physician reports pt has one area where there is an open sore on her abdomen. The area is moist and macerated, and foul smelling. Per report, pt has difficulty sitting up due to severe pain. I/D and wound nurse consulted; patient is being treated with cefazolin and Oxyir for pain. Patient baseline functional status unable to be assessed due to mental status. The patient was unable to participate with therapy today due to lethargy. Per therapy, patient had garbled speech and was not safe to participate in therapy. JESUS OLIVEROS notes patient has a history of bipolar and depression. Referral made to [facility] for psychosocial assessment. Patient's goal is to return home at discharge. JESUS OLIVEROS will continue to follow hospital course for safe transition planning. Disposition Plan: TBD; patient goal is home, but unable to complete [id number] assessment due to patient's mental status.
--- NOTE | 2017-08-03 15:33 | CHAPLAIN ---
Type of Pastoral Visit _x__ Initial Visit ___ Follow-up Visit ___ On-call Visit ___ General Patient Visit ___ Spiritual Assessment ___ Family Conference ___ Bereavement ___ Rapid Response ___ Code Blue ___ Other (describe below) Pastoral Care Referral From _x__ Patient ___ Family ___ Nurse ___ Physician ___ Director Of Blood ___ Inserting Machine Operator ___ Other (describe below) Sacrament/Intervention _x__ Active listening ___ Anointing ___ Mandaen ___ Bereavement ___ Communion ___ Zaria exploration ___ _x__ Life review _x__ Prayer ___ Reconciliation ___ Sacrament of Sick _x__ Supportive presence ___ Wedding ___ Other (describe below) Pastoral Comments patient remembers this law secretary from previous admission to hospital; pt is very talkative; pt talks about her son in long term; pt has concerns about how she is going to pay her bills since her son is in long term
[2017-08-03 17:06] LABS: Bedside Glucose 134 mg/dL (70-110)
[2017-08-03 22:11] LABS: Bedside Glucose 138 mg/dL (70-110)
[2017-08-04 02:54] VITALS: BP 127/77; PULSE 98; RESP 14; TEMP 37.2; O2SAT 93
[2017-08-04] MEDS: clonazePAM 0.5 MG Tablet PO ×3 (05:38→23:11)
[2017-08-04] MEDS: Cefazolin 2 GM in 0.9% Normal Saline 100 ML IV ×3 (05:38→23:14)
[2017-08-04] MEDS: Nystatin Ointment 1 APPLIC TOPICAL (05:38)
[2017-08-04 06:46] LABS: Bedside Glucose 109 mg/dL (70-110)
[2017-08-04 06:56] LABS: Anion Gap 10 (5-15); BUN 15 mg/dL (7-18); BUN/Creat Ratio 20.8 RATIO (10-20); Calcium,Total 8.1 mg/dL (8.5-10.1); Chloride 108 mmol/L (98-107); Creatinine, Serum 0.72 mg/dL (0.55-1.02); EST Glomerular Filtration Rate 86 mL/min (>60); Est Glom Filt Rate - Afr Amer 104 mL/min (>60); Estimated Creatinine Clearance 71.03 ml/min; Glucose 108 mg/dL (74-106); Potassium 3.7 mmol/L (3.5-5.1); Sodium Level 142 mmol/L (136-145)
[2017-08-04 07:25] VITALS: O2SAT 92
[2017-08-04 07:45] LABS: Hemoglobin A1c 8.2 % (4.2-6.3)
[2017-08-04 08:35] VITALS: BP 135/78; PULSE 95; RESP 18; TEMP 37.2; O2SAT 96
--- NOTE | 2017-08-04 09:00 | CASEMGMT ---
Addendum entered by Kylee Pardo 08/04/17 09:22: SW spoke with patient and she called [facility]. She gave them her address. They told her it could take a couple of days. SW will check with them as patient will need home health at d/c. Kylee JUNIOR Original Note: SW met with patient, introduced self and role at [facility]. Patient was not aware she did not have insurance. SW told her SW will call [facility] to find out what happened. SW then asked her about her living situation. She said she lives in an apartment and there are steps to get to it. She normally does fine and does not use an assistive device. She does not have any equipment at home. She said she would like to have home health at d/c as long as she has insurance. She was perseverating on the fact that dietary did not bring her the 2 Sprite Zeros she requested. [facility] told her SW will check with RN and get her the Sprites if she is allowed. SW will also call [facility]. SW spoke with RN and patient can have 2 Sprite Zeros. SW then took them to patient. SW then called [facility] and spoke with someone in the case bank. They said they lost contact with patient. They sent out 2 requests to verify address and she did not get back to them so it was cut off Jul 07. She has 30 days to call them to reinstate it. [facility] told patient this information and suggested she call right away. [facility] wrote down the phone number for her. She actually picked up the phone and called. SW will check back. Kylee JUNIOR
[2017-08-04] MEDS: Lisinopril 10 MG Tablet PO (09:57)
[2017-08-04] MEDS: Enoxaparin 40 MG/0.4 ML Syringe SC (09:57)
[2017-08-04] MEDS: Fluconazole 100 MG Tablet 200 MG PO (09:57)
[2017-08-04] MEDS: lamoTRIgine 100 MG Tablet PO (09:57)
--- NOTE | 2017-08-04 11:52 | PCM.PN.ID ---
Patient Problems: Active and Suspected Problems Sepsis (Acute) Cellulitis (Acute) Subjective: Feeling better, no fever, rash improved. C/o soreness over lesions on abd and buttocks. No n/v/d. - Physical Exam General: Alert, Cooperative, No apparent distress Lungs: Clear to auscultation, Normal air movement Cardiovascular: Regular rate, Regular Rhythm Abdomen: Soft, Non Tender, Non-Distended Skin: Rash Present - on lower abd, inguinal folds, buttocks, and under breasts; overall improved. Shallow lesions present, no drainage Vital Signs Temp Pulse Resp BP Pulse Ox 98.9 F 95 18 135/78 H 96 08/04/17 08:35 08/04/17 08:35 08/04/17 08:35 08/04/17 08:35 08/04/17 08:35 Oxygen Delivery Method Room Air Weight: 107.9 kg Body Mass Index (BMI) 39.3 Intake and Output for Last 24 Hours 08/02/17 08/03/17 08/04/17 23:59 23:59 23:59 Intake Total 1549 / 1549 2288 / 2288 279 / 279 Balance 1549 / 1549 2288 / 2288 279 / 279 Microbiology Past 72 Hours 08/03/17 10:15 Gram Stain - Final Wound - Abdominal Laboratory Tests Past 24 Hrs 08/03/17 08/04/17 08/04/17 10:15 05:45 05:45 Sodium 142 Potassium 3.7 Chloride 108 H Carbon Dioxide 24.0 Anion Gap 10 BUN 15 Creatinine 0.72 Estim Creat Clear Calc 71.03 Est GFR (MDRD) Af Amer 104 Est GFR (MDRD) Non-Af 86 BUN/Creatinine Ratio 20.8 H Glucose 108 H Hemoglobin A1c 8.2 H Calcium 8.1 L S.aureus Protein A PCR NEGATIVE MRSA (PCR) Negative POC Glucose 08/04/17 08/03/17 08/03/17 06:41 20:52 16:55 POC Glucose 109 138 H 134 H Route of nutrition/ use of supplements: [] Nutritional Intake: [] IV Site: [] Connell Catheter: [] - Assessment/Plan Antibiotics: [] Assessment/Plan: [] Active and Suspected Problems Sepsis (Acute) Cellulitis (Acute) Has previously tolerated ceftriaxone. No purulence, so low suspicion for MRSA. Concern for yeast component. Wound swab pending, pcr was neg. Cont cefazolin and fluconazole. Agree with nystatin powder. Plan on d/c home on one week duracef and fluconazole. May benefit from wound care follow-up. will follow
[2017-08-04 12:46] LABS: Bedside Glucose 162 mg/dL (70-110)
[2017-08-04 14:35] VITALS: BP 120/67; PULSE 93; RESP 16; TEMP 37.3; O2SAT 95
[2017-08-04 17:11] LABS: Bedside Glucose 138 mg/dL (70-110)
--- NOTE | 2017-08-04 17:50 | DCINST_ITS ---
- Discharge Diagnoses Current Active Problems: Current Active and Chronic Problems Sepsis (Acute) Cellulitis (Acute) You will use the following diet at home:: Other - resume previous diet Your food should be the consistency of: Regular Your liquids should be the consistency of: Regular/Thin Discharge Activity: Return to Normal Activity, May Shower - You should shower at least 3-4 times a week. The infection under the breasts, beneath the belly and in the groin is from not washing enough and having those areas be moist......moist areas breed Yeast and that is what started this all off. Then the infallmation cause the skin to rub off and let the bacteria in. Whenever your insurance is starighened out again the psychosocial rehabilitation counselor here at the hospital will get you set up for Home Health Care so you can get an aide come in and help you with keeping clean and organized. Call your doctor if you observe: Fever of 101 or Higher, Shortness of breath, Dizziness, Fainting spells, Chest pain, - - diarrhea, rash Instructions: ED Candidiasis Cutaneous Allergies/Adverse Reactions: Allergies ciprofloxacin [From Cipro] Allergy (Verified 06/23/17 10:11) Anaphylaxis ciprofloxacin HCl [From Cipro] Allergy (Verified 06/23/17 10:11) Anaphylaxis Iodinated Contrast- Oral and IV Dye [Iodinated Contrast Media - IV Dye] Allergy (Verified 06/23/17 10:11) Rash paliperidone [From Invega] Allergy (Verified 06/23/17 10:11) Rash Penicillins Allergy (Verified 08/02/17 14:37) RASH AND ITCHING red dye Allergy (Verified 08/02/17 14:48) Hives Sulfa (Sulfonamide Antibiotics) Allergy (Verified 08/02/17 14:49) RASH AND ITCHING metformin Adverse Reaction (Verified 06/23/17 10:11) Nausea/Vom/Diarrhea shellfish derived Adverse Reaction (Verified 08/02/17 14:48) Nausea/Vom/Diarrhea Medications to take at Discharge Clonazepam [Klonopin] 0.5 mg PO TID 10/28/16 Insulin Glargine,Hum.rec.anlog [Toujeo Solostar] 18 unit SQ QHS 10/28/16 Lamotrigine [Lamictal] 100 mg PO DAILY 10/28/16 Quetiapine Fumarate [Seroquel XR] 600 mg PO QHS 10/28/16 Cefadroxil 1 gm PO DAILY #7 tab 08/04/17 Fluconazole [Diflucan] 200 mg PO DAILY #7 tab 08/04/17 Lisinopril [Zestril] 10 mg PO DAILY #30 tab 08/04/17 The following prescriptions were given: Cefadroxil 1 gm PO DAILY #7 tab Fluconazole [Diflucan] 200 mg PO DAILY #7 tab Lisinopril [Zestril] 10 mg PO DAILY #30 tab Primary Care Physician: Callie Figueroa MD [Primary Care Provider] - Please follow up with your Primary Care Physician in: 7-10 days Proposed Discharge Date: 08/04/17
--- NOTE | 2017-08-04 17:50 | PCM.DC.SUM ---
Discharge Date and Diagnosis - Problem List Patient Problems: Active and Suspected Problems Sepsis (Acute) Cellulitis (Acute) Date of Admission: 08/02/17 Date of Discharge: 08/05/17 - Primary Discharge Diagnosis Active and Suspected Problems Intertrigo (Acute) Sepsis (Acute) - due to intertrigo with superimposed bacterial cellulitis Cellulitis (Acute) pannus and groin - Secondary Discharge Diagnosis Chronic Problems Bipolar disorder (Chronic) Depression (Chronic) Lymphedema (Chronic) DM2 (diabetes mellitus, type 2) (Chronic) - uncontrolled, HGBA1C is 8.2 Morbid obesity poor hygiene Hospital Course and Treatment Imaging Results: Laboratory Tests 08/02/17 08/02/17 08/02/17 12:55 12:55 12:55 WBC 8.5 RBC 4.86 Hgb 14.7 Hct 43.5 MCV 89.5 MCH 30.2 MCHC 33.8 RDW 14.2 RDW Differential 46.3 H Plt Count 164 MPV 11.4 Immature Gran % (Auto) 0.200 Neut % (Auto) 73.5 H Lymph % (Auto) 16.9 L Dade % (Auto) 8.5 Eos % (Auto) 0.7 Baso % (Auto) 0.2 Absolute Neuts (auto) 6.3 Absolute Lymphs (auto) 1.44 Total Counted Not Reportable Sodium 141 Potassium 3.0 L Chloride 106 Carbon Dioxide 26.0 Anion Gap 9 BUN 10 Creatinine 0.69 Estim Creat Clear Calc 74.12 Est GFR (MDRD) Af Amer 109 Est GFR (MDRD) Non-Af 90 BUN/Creatinine Ratio 14.4 Glucose 200 H Hemoglobin A1c Lactic Acid 2.6 H Calcium 8.6 S.aureus Protein A PCR MRSA (PCR) POC Glucose 08/02/17 08/02/17 08/02/17 16:27 17:19 22:16 WBC RBC Hgb Hct MCV MCH MCHC RDW RDW Differential Plt Count MPV Immature Gran % (Auto) Neut % (Auto) Lymph % (Auto) Dade % (Auto) Eos % (Auto) Baso % (Auto) Absolute Neuts (auto) Absolute Lymphs (auto) Total Counted Sodium Potassium Chloride Carbon Dioxide Anion Gap BUN Creatinine Estim Creat Clear Calc Est GFR (MDRD) Af Amer Est GFR (MDRD) Non-Af BUN/Creatinine Ratio Glucose Hemoglobin A1c Lactic Acid 2.0 Calcium S.aureus Protein A PCR MRSA (PCR) POC Glucose 164 H 172 H 08/03/17 08/03/17 08/03/17 05:25 05:25 06:58 WBC 6.5 RBC 4.38 Hgb 13.6 Hct 39.5 MCV 90.2 MCH 31.1 MCHC 34.4 RDW 14.3 RDW Differential 46.7 H Plt Count 148 L MPV 11.5 Immature Gran % (Auto) Neut % (Auto) Lymph % (Auto) Dade % (Auto) Eos % (Auto) Baso % (Auto) Absolute Neuts (auto) Absolute Lymphs (auto) Total Counted Sodium 140 Potassium 3.7 Chloride 108 H Carbon Dioxide 25.0 Anion Gap 7 BUN 9 Creatinine 0.59 Estim Creat Clear Calc 86.68 Est GFR (MDRD) Af Amer 132 Est GFR (MDRD) Non-Af 109 BUN/Creatinine Ratio 15.3 Glucose 104 Hemoglobin A1c Lactic Acid Calcium 8.7 S.aureus Protein A PCR MRSA (PCR) POC Glucose 122 H 08/03/17 08/03/17 08/03/17 10:15 11:08 16:55 WBC RBC Hgb Hct MCV MCH MCHC RDW RDW Differential Plt Count MPV Immature Gran % (Auto) Neut % (Auto) Lymph % (Auto) Dade % (Auto) Eos % (Auto) Baso % (Auto) Absolute Neuts (auto) Absolute Lymphs (auto) Total Counted Sodium Potassium Chloride Carbon Dioxide Anion Gap BUN Creatinine Estim Creat Clear Calc Est GFR (MDRD) Af Amer Est GFR (MDRD) Non-Af BUN/Creatinine Ratio Glucose Hemoglobin A1c Lactic Acid Calcium S.aureus Protein A PCR NEGATIVE MRSA (PCR) Negative POC Glucose 145 H 134 H 08/03/17 08/04/17 08/04/17 20:52 05:45 05:45 WBC RBC Hgb Hct MCV MCH MCHC RDW RDW Differential Plt Count MPV Immature Gran % (Auto) Neut % (Auto) Lymph % (Auto) Dade % (Auto) Eos % (Auto) Baso % (Auto) Absolute Neuts (auto) Absolute Lymphs (auto) Total Counted Sodium 142 Potassium 3.7 Chloride 108 H Carbon Dioxide 24.0 Anion Gap 10 BUN 15 Creatinine 0.72 Estim Creat Clear Calc 71.03 Est GFR (MDRD) Af Amer 104 Est GFR (MDRD) Non-Af 86 BUN/Creatinine Ratio 20.8 H Glucose 108 H Hemoglobin A1c 8.2 H Lactic Acid Calcium 8.1 L S.aureus Protein A PCR MRSA (PCR) POC Glucose 138 H 08/04/17 08/04/17 08/04/17 06:41 12:02 16:45 WBC RBC Hgb Hct MCV MCH MCHC RDW RDW Differential Plt Count MPV Immature Gran % (Auto) Neut % (Auto) Lymph % (Auto) Dade % (Auto) Eos % (Auto) Baso % (Auto) Absolute Neuts (auto) Absolute Lymphs (auto) Total Counted Sodium Potassium Chloride Carbon Dioxide Anion Gap BUN Creatinine Estim Creat Clear Calc Est GFR (MDRD) Af Amer Est GFR (MDRD) Non-Af BUN/Creatinine Ratio Glucose Hemoglobin A1c Lactic Acid Calcium S.aureus Protein A PCR MRSA (PCR) POC Glucose 109 162 H 138 H Microbiology 08/02/17 13:05 Blood Culture (Wb) - Other Blood Culture - Preliminary No growth in 48 hours. 08/02/17 12:55 Blood Culture (Wb) - Anticubital Left Blood Culture - Preliminary No growth in 48 hours. 08/03/17 10:15 Wound - Abdominal Gram Stain - Final Consultations 08/02/17 15:33 Consult: Onc/Wound/drapery and upholstery estimator Routine Comment: Dr. Saul Whalen-infectious disease Operations: None Procedures: None Summary of Care Provided: Pt is a 66-year-old female with a past medical history of bipolar disorder, morbid obesity, and diabetes mellitus type 2 who presented to the Ed at [facility] on 08/02/17 with a c/o beneath her breasts, under her belly and in between the buttocks. Vital signs at presentation to the emergency room were temperature 98.2, pulse rate 138, blood pressure 166/110, respiratory rate of 20 and she was 98% saturated on room air. White blood cell count was 8.5 with 73% neutrophils. Hemoglobin and platelets were within normal limits. Potassium was low at 3.0 and the lactic acid was 2.6 initially but after 3 hours was down to 2.0. On PE she had severe extensive intertrigo beneath the breasts , beneath the pannus, in the groin and between the buttocks. There were open wounds on the lower pannus. DC was foul smelling and she was ill kempt and in need of a bath. She was admitted to the hospital with a diagnosis of sepsis and started on Aztreonam, Vancomycin and Nystatin powder. She was started on Lisinopril for HTN. She was seen by Dr. Whalen and started on fluconazole and Ancef. Vanco and Aztreonam were discontinued. PCR of the wound drainage was negative for staph aureus and negative for MRSA. Potassium was supplemented at admission and the recheck was within normal limits. 2 days after admission the wounds on the lower abdomen were dry with 100% granulation. There was no purulent DC and no warmth to touch. There was no odor. The marilou intertrigo was resolving and there was pink discoloration rather than angry red. She was ready for DC on 08/04 but, she let her insurance and she was unable to afford her medications. She was kept in the hospital and the hospital will pay for her medications in hopes that her insurance will be reinstated in the next week. She has a case aide but, she has no HHC and no aides to help with bathing etc. When the SW called the case aide there was no answer and the phone call was not returned. The SW at the hospital will follow up with her Tuesday and if the insurance is reinstated will arrange HHC. She was educated while in the hospital on the importance of controlling blood sugars and maintaining good hygiene to prevent future episodes of intertrigo. HGBA1C is 8.2 and I suspect she is non-compliant with diet. BS's in the hospital were well controlled on a cardiac diet. She was discharged on 08/05 with Fluconazole, Duricef and Lisinopril. She will follow up with her PCP, Dr. Callie Figueroa in 7-10 days and with the counselling center. This note was generated with Mont[employer] Studio[employer] software. It may contain incorrect words, spelling, and punctuation that were not noted in checking the note before signing. Discharge Activity: Return to Normal Activity, May Shower - You should shower at least 3-4 times a week. The infection under the breasts, beneath the belly and in the groin is from not washing enough and having those areas be moist......moist areas breed Yeast and that is what started this all off. Then the infallmation cause the skin to rub off and let the bacteria in. Whenever your insurance is starighened out again the web content & social media manager here at the hospital will get you set up for Home Health Care so you can get an aide come in and help you with keeping clean and organized. Call your doctor if you observe: Fever of 101 or Higher, Shortness of breath, Dizziness, Fainting spells, Chest pain, - - diarrhea, rash Home Medications: Medications to take at Discharge Clonazepam [Klonopin] 0.5 mg PO TID 10/28/16 Insulin Glargine,Hum.rec.anlog [Toujeo Solostar] 18 unit SQ QHS 10/28/16 Lamotrigine [Lamictal] 100 mg PO DAILY 10/28/16 Quetiapine Fumarate [Seroquel XR] 600 mg PO QHS 10/28/16 Cefadroxil 1 gm PO DAILY #7 tab 08/04/17 Fluconazole [Diflucan] 200 mg PO DAILY #7 tab 08/04/17 Lisinopril [Zestril] 10 mg PO DAILY #30 tab 08/04/17 Following Prescrptions Were Given to Patient: Cefadroxil 1 gm PO DAILY #7 tab Fluconazole [Diflucan] 200 mg PO DAILY #7 tab Lisinopril [Zestril] 10 mg PO DAILY #30 tab Primary Care Physician: Callie Figueroa MD [Primary Care Provider] - Please follow up with your Primary Care Physician in: 7-10 days Patient Instructions: ED Candidiasis Cutaneous Disposition: Home with Home Health Minutes spent on discharge:: 35 Patient Condition:: Good Meaningful Use Info Meaningful Use Diagnoses (Choose all that apply): None applicable Code Visit Inpatient E&M: 52173 Disch Hosp
--- NOTE | 2017-08-04 17:54 | DS.PCM_ITS ---
Discharge Date and Diagnosis - Problem List Patient Problems: Active and Suspected Problems Sepsis (Acute) Cellulitis (Acute) Date of Admission: 08/02/17 Date of Discharge: 08/05/17 - Primary Discharge Diagnosis Active and Suspected Problems Intertrigo (Acute) Sepsis (Acute) - due to intertrigo with superimposed bacterial cellulitis Cellulitis (Acute) pannus and groin - Secondary Discharge Diagnosis Chronic Problems Bipolar disorder (Chronic) Depression (Chronic) Lymphedema (Chronic) DM2 (diabetes mellitus, type 2) (Chronic) - uncontrolled, HGBA1C is 8.2 Morbid obesity poor hygiene Hospital Course and Treatment Imaging Results: Laboratory Tests 08/02/17 08/02/17 08/02/17 12:55 12:55 12:55 WBC 8.5 RBC 4.86 Hgb 14.7 Hct 43.5 MCV 89.5 MCH 30.2 MCHC 33.8 RDW 14.2 RDW Differential 46.3 H Plt Count 164 MPV 11.4 Immature Gran % (Auto) 0.200 Neut % (Auto) 73.5 H Lymph % (Auto) 16.9 L Gregg % (Auto) 8.5 Eos % (Auto) 0.7 Baso % (Auto) 0.2 Absolute Neuts (auto) 6.3 Absolute Lymphs (auto) 1.44 Total Counted Not Reportable Sodium 141 Potassium 3.0 L Chloride 106 Carbon Dioxide 26.0 Anion Gap 9 BUN 10 Creatinine 0.69 Estim Creat Clear Calc 74.12 Est GFR (MDRD) Af Amer 109 Est GFR (MDRD) Non-Af 90 BUN/Creatinine Ratio 14.4 Glucose 200 H Hemoglobin A1c Lactic Acid 2.6 H Calcium 8.6 S.aureus Protein A PCR MRSA (PCR) POC Glucose 08/02/17 08/02/17 08/02/17 16:27 17:19 22:16 WBC RBC Hgb Hct MCV MCH MCHC RDW RDW Differential Plt Count MPV Immature Gran % (Auto) Neut % (Auto) Lymph % (Auto) Gregg % (Auto) Eos % (Auto) Baso % (Auto) Absolute Neuts (auto) Absolute Lymphs (auto) Total Counted Sodium Potassium Chloride Carbon Dioxide Anion Gap BUN Creatinine Estim Creat Clear Calc Est GFR (MDRD) Af Amer Est GFR (MDRD) Non-Af BUN/Creatinine Ratio Glucose Hemoglobin A1c Lactic Acid 2.0 Calcium S.aureus Protein A PCR MRSA (PCR) POC Glucose 164 H 172 H 08/03/17 08/03/17 08/03/17 05:25 05:25 06:58 WBC 6.5 RBC 4.38 Hgb 13.6 Hct 39.5 MCV 90.2 MCH 31.1 MCHC 34.4 RDW 14.3 RDW Differential 46.7 H Plt Count 148 L MPV 11.5 Immature Gran % (Auto) Neut % (Auto) Lymph % (Auto) Gregg % (Auto) Eos % (Auto) Baso % (Auto) Absolute Neuts (auto) Absolute Lymphs (auto) Total Counted Sodium 140 Potassium 3.7 Chloride 108 H Carbon Dioxide 25.0 Anion Gap 7 BUN 9 Creatinine 0.59 Estim Creat Clear Calc 86.68 Est GFR (MDRD) Af Amer 132 Est GFR (MDRD) Non-Af 109 BUN/Creatinine Ratio 15.3 Glucose 104 Hemoglobin A1c Lactic Acid Calcium 8.7 S.aureus Protein A PCR MRSA (PCR) POC Glucose 122 H 08/03/17 08/03/17 08/03/17 10:15 11:08 16:55 WBC RBC Hgb Hct MCV MCH MCHC RDW RDW Differential Plt Count MPV Immature Gran % (Auto) Neut % (Auto) Lymph % (Auto) Gregg % (Auto) Eos % (Auto) Baso % (Auto) Absolute Neuts (auto) Absolute Lymphs (auto) Total Counted Sodium Potassium Chloride Carbon Dioxide Anion Gap BUN Creatinine Estim Creat Clear Calc Est GFR (MDRD) Af Amer Est GFR (MDRD) Non-Af BUN/Creatinine Ratio Glucose Hemoglobin A1c Lactic Acid Calcium S.aureus Protein A PCR NEGATIVE MRSA (PCR) Negative POC Glucose 145 H 134 H 08/03/17 08/04/17 08/04/17 20:52 05:45 05:45 WBC RBC Hgb Hct MCV MCH MCHC RDW RDW Differential Plt Count MPV Immature Gran % (Auto) Neut % (Auto) Lymph % (Auto) Gregg % (Auto) Eos % (Auto) Baso % (Auto) Absolute Neuts (auto) Absolute Lymphs (auto) Total Counted Sodium 142 Potassium 3.7 Chloride 108 H Carbon Dioxide 24.0 Anion Gap 10 BUN 15 Creatinine 0.72 Estim Creat Clear Calc 71.03 Est GFR (MDRD) Af Amer 104 Est GFR (MDRD) Non-Af 86 BUN/Creatinine Ratio 20.8 H Glucose 108 H Hemoglobin A1c 8.2 H Lactic Acid Calcium 8.1 L S.aureus Protein A PCR MRSA (PCR) POC Glucose 138 H 08/04/17 08/04/17 08/04/17 06:41 12:02 16:45 WBC RBC Hgb Hct MCV MCH MCHC RDW RDW Differential Plt Count MPV Immature Gran % (Auto) Neut % (Auto) Lymph % (Auto) Gregg % (Auto) Eos % (Auto) Baso % (Auto) Absolute Neuts (auto) Absolute Lymphs (auto) Total Counted Sodium Potassium Chloride Carbon Dioxide Anion Gap BUN Creatinine Estim Creat Clear Calc Est GFR (MDRD) Af Amer Est GFR (MDRD) Non-Af BUN/Creatinine Ratio Glucose Hemoglobin A1c Lactic Acid Calcium S.aureus Protein A PCR MRSA (PCR) POC Glucose 109 162 H 138 H Microbiology 08/02/17 13:05 Blood Culture (Wb) - Other Blood Culture - Preliminary No growth in 48 hours. 08/02/17 12:55 Blood Culture (Wb) - Anticubital Left Blood Culture - Preliminary No growth in 48 hours. 08/03/17 10:15 Wound - Abdominal Gram Stain - Final Consultations 08/02/17 15:33 Consult: Onc/Wound/multiple knife edge trimmer operator Routine Comment: Dr. Saul Whalen-infectious disease Operations: None Procedures: None Summary of Care Provided: Pt is a 66-year-old female with a past medical history of bipolar disorder , morbid obesity, and diabetes mellitus type 2 who presented to the Ed at [facility] on 08/02/17 with a c/o beneath her breasts, under her belly and in between the buttocks. Vital signs at presentation to the emergency room were temperature 98.2, pulse rate 138, blood pressure 166/110, respiratory rate of 20 and she was 98% saturated on room air. White blood cell count was 8.5 with 73% neutrophils. Hemoglobin and platelets were within normal limits. Potassium was low at 3.0 and the lactic acid was 2.6 initially but after 3 hours was down to 2.0. On PE she had severe extensive intertrigo beneath the breasts , beneath the pannus, in the groin and between the buttocks. There were open wounds on the lower pannus. DC was foul smelling and she was ill kempt and in need of a bath. She was admitted to the hospital with a diagnosis of sepsis and started on Aztreonam, Vancomycin and Nystatin powder. She was started on Lisinopril for HTN. She was seen by Dr. Whalen and started on fluconazole and Ancef. Vanco and Aztreonam were discontinued. PCR of the wound drainage was negative for staph aureus and negative for MRSA. Potassium was supplemented at admission and the recheck was within normal limits. 2 days after admission the wounds on the lower abdomen were dry with 100% granulation. There was no purulent DC and no warmth to touch. There was no odor. The marilou intertrigo was resolving and there was pink discoloration rather than angry red. She was ready for DC on 08/04 but, she let her insurance and she was unable to afford her medications. She was kept in the hospital and the hospital will pay for her medications in hopes that her insurance will be reinstated in the next week. She has a gearcase assembler but, she has no HHC and no aides to help with bathing etc. When the SW called the gearcase assembler there was no answer and the phone call was not returned. The SW at the hospital will follow up with her Tuesday and if the insurance is reinstated will arrange HHC. She was educated while in the hospital on the importance of controlling blood sugars and maintaining good hygiene to prevent future episodes of intertrigo. HGBA1C is 8.2 and I suspect she is non-compliant with diet. BS's in the hospital were well controlled on a cardiac diet. She was discharged on 08/05 with Fluconazole, Duricef and Lisinopril. She will follow up with her PCP, Dr. Callie Figueroa in 7-10 days and with the counselling center. This note was generated with [employer] software. It may contain incorrect words, spelling, and punctuation that were not noted in checking the note before signing. Discharge Activity: Return to Normal Activity, May Shower - You should shower at least 3-4 times a week. The infection under the breasts, beneath the belly and in the groin is from not washing enough and having those areas be moist......moist areas breed Yeast and that is what started this all off. Then the infallmation cause the skin to rub off and let the bacteria in. Whenever your insurance is starighened out again the social media strategist here at the hospital will get you set up for Home Health Care so you can get an aide come in and help you with keeping clean and organized. Call your doctor if you observe: Fever of 101 or Higher, Shortness of breath, Dizziness, Fainting spells, Chest pain, - - diarrhea, rash Home Medications: Medications to take at Discharge Clonazepam [Klonopin] 0.5 mg PO TID 10/28/16 Insulin Glargine,Hum.rec.anlog [Toujeo Solostar] 18 unit SQ QHS 10/28/16 Lamotrigine [Lamictal] 100 mg PO DAILY 10/28/16 Quetiapine Fumarate [Seroquel XR] 600 mg PO QHS 10/28/16 Cefadroxil 1 gm PO DAILY #7 tab 08/04/17 Fluconazole [Diflucan] 200 mg PO DAILY #7 tab 08/04/17 Lisinopril [Zestril] 10 mg PO DAILY #30 tab 08/04/17 Following Prescrptions Were Given to Patient: Cefadroxil 1 gm PO DAILY #7 tab Fluconazole [Diflucan] 200 mg PO DAILY #7 tab Lisinopril [Zestril] 10 mg PO DAILY #30 tab Primary Care Physician: Callie Figueroa MD [Primary Care Provider] - Please follow up with your Primary Care Physician in: 7-10 days Patient Instructions: ED Candidiasis Cutaneous Disposition: Home with Home Health Minutes spent on discharge:: 35 Patient Condition:: Good Meaningful Use Info Meaningful Use Diagnoses (Choose all that apply): None applicable Code Visit Inpatient E&M: 78918 Disch Hosp
--- NOTE | 2017-08-04 20:24 | PCM.PN.BLA ---
Progress Note The erythema in the groin, beneath the pannus and under the breast is improved...the open wounds on the pannus are drying up and there is no odor and no purulent DC. She is stable and ready for DC but states she has no ride and no one to help at home until tomorrow. Will hold DC until the AM Discussed with DC resource management planner and SW and she has let her insurance . Will need to get reinstated and then we can arrange for [facility] to help with bathing etc....She may also benefit from Community Outreach. Impressions 1. intertrigo with bacterial cellulitis superimposed on the pannus 2. BPD - she needs a counseling case manager Tells me she has a elevator repairer at the counselling center but has not seen in 6 months Give 200 mg of Seroquel tonight and she can resume Seroquel XR at home DC in the AM
--- NOTE | 2017-08-04 20:30 | PN_ITS ---
Progress Note The erythema in the groin, beneath the pannus and under the breast is improved...the open wounds on the pannus are drying up and there is no odor and no purulent DC. She is stable and ready for DC but states she has no ride and no one to help at home until tomorrow. Will hold DC until the AM Discussed with DC manufacturing planner and SW and she has let her insurance . Will need to get reinstated and then we can arrange for [facility] to help with bathing etc....She may also benefit from Community Outreach. Impressions 1. intertrigo with bacterial cellulitis superimposed on the pannus 2. BPD - she needs a rifle case repairer Tells me she has a director medical affairs at the counselling center but has not seen in 6 months Give 200 mg of Seroquel tonight and she can resume Seroquel XR at home DC in the AM
[2017-08-04 20:35] VITALS: BP 104/55; PULSE 88; RESP 16; TEMP 36.9; O2SAT 95
[2017-08-04 22:51] LABS: Bedside Glucose 207 mg/dL (70-110)
[2017-08-04] MEDS: QUEtiapine 100 MG Tablet PO (23:11)
[2017-08-04] MEDS: Nystatin Powder 15gm Bottle 1 APPLIC TOPICAL (23:12)
[2017-08-05 02:35] VITALS: BP 116/52; PULSE 78; RESP 18; TEMP 36.6; O2SAT 96
--- NOTE | 2017-08-05 05:55 | EKG12_ITS ---
Test Reason : AM EKG Blood Pressure : / mmHG Vent. Rate : 096 BPM Atrial Rate : 096 BPM P-R Int : 186 ms QRS Dur : 090 ms QT Int : 358 ms P-R-T Axes : 036 001 015 degrees QTc Int : 452 ms Normal sinus rhythm Normal ECG When compared with ECG of 02-AUG-2017 15:22, No significant change was found Confirmed by ARCENIO LEAL, NAEEM ([id number]), senior editor GUERRERO AGUERO ([id number]) on 08/10/2017 1:52:04 PM Referred By: BRIAN Confirmed By:NAEEM RG MD
[2017-08-05] MEDS: Cefazolin 2 GM in 0.9% Normal Saline 100 ML IV (06:17)
[2017-08-05] MEDS: clonazePAM 0.5 MG Tablet PO ×2 (06:17→13:32)
[2017-08-05 07:06] LABS: Bedside Glucose 133 mg/dL (70-110)
[2017-08-05 08:24] VITALS: BP 103/64; PULSE 93; RESP 18; TEMP 36.8; O2SAT 96
--- NOTE | 2017-08-05 09:36 | CASEMGMT ---
SW spoke with patient about [employer] and she was open to a referral being made. SW also told her that SW will set up home health, but cannot do this until her insurance is re-activated. SW told her this would not be until next week. She was okay with this. SW faxed a referral to [employer]. SW also called Samuel Howell, patient's case management manager at [facility], and left her a voice mail requesting a return call. Patient said she has not seen her case management manager since April. Plan: Home. SW will set up home health as soon as her insurance is re-activated, which should be in the next couple of days. SW also made a referral to [employer]. Kylee VANCE MSW
[2017-08-05] MEDS: Fluconazole 100 MG Tablet 200 MG PO (09:46)
[2017-08-05] MEDS: lamoTRIgine 100 MG Tablet PO (09:46)
[2017-08-05] MEDS: Enoxaparin 40 MG/0.4 ML Syringe SC (09:46)
[2017-08-05] MEDS: QUEtiapine 100 MG Tablet 300 MG PO (09:47)
[2017-08-05] MEDS: Lisinopril 10 MG Tablet PO (09:47)
[2017-08-05] MEDS: Nystatin Powder 15gm Bottle 1 APPLIC TOPICAL (09:47)
[2017-08-05 11:10] LABS: Bedside Glucose 188 mg/dL (70-110)
--- NOTE | 2017-08-05 12:17 | PCM.PN.ID ---
Patient Problems: Active and Suspected Problems Sepsis (Acute) Cellulitis (Acute) Subjective: Feeling better, but still soreness in abd, under breasts. No fever, no n/v/d. - Physical Exam General: Alert, Cooperative, No apparent distress Lungs: Clear to auscultation, Normal air movement Cardiovascular: Regular rate, Regular Rhythm Abdomen: Soft, Non Tender, Non-Distended Skin: Rash Present - improved, fading redness. Shallow ulcers. Vital Signs Temp Pulse Resp BP Pulse Ox 98.3 F 93 18 103/64 96 08/05/17 08:24 08/05/17 08:24 08/05/17 08:24 08/05/17 08:24 08/05/17 08:24 Oxygen Delivery Method Room Air Weight: 109.4 kg Body Mass Index (BMI) 39.3 Intake and Output for Last 24 Hours 08/03/17 08/04/17 08/05/17 23:59 23:59 23:59 Intake Total 2288 / 2288 1211 / 1211 1036 / 1036 Balance 2288 / 2288 1211 / 1211 1036 / 1036 Microbiology Past 72 Hours 08/03/17 10:15 Gram Stain - Final Wound - Abdominal Wound Culture - Preliminary No growth-Final to follow Anaerobic Culture - Preliminary No growth in 48 hours. POC Glucose 08/05/17 08/05/17 08/04/17 10:57 06:53 22:45 POC Glucose 188 H 133 H 207 H 08/04/17 08/04/17 16:45 12:02 POC Glucose 138 H 162 H Route of nutrition/ use of supplements: [] Nutritional Intake: [] IV Site: [] Connell Catheter: [] - Assessment/Plan Antibiotics: [] Assessment/Plan: [] Active and Suspected Problems Sepsis (Acute) Cellulitis (Acute) Has previously tolerated ceftriaxone. No purulence, so low suspicion for MRSA. Much improved. Plan on d/c home on 6 more days of duracef and fluconazole. Will change cefazolin to keflex for now. will follow
[2017-08-05 12:22] VITALS: BP 97/57; PULSE 108; RESP 18; TEMP 36.6; O2SAT 98
[2017-08-05] MEDS: Cephalexin 500 MG Capsule PO (13:32)
--- NOTE | 2017-08-05 15:45 | CASEMGMT ---
SW also helped patient with d/c medication as she does not have insurance. Kylee VNACE MSW
--- NOTE | 2017-08-09 10:35 | CASEMGMT ---
Addendum entered by Kylee Pardo 08/09/17 15:03: ELVIN called Radha Greenwood, Real Estate Broker Associate for [facility]. She said Dr Figueroa left their practice in January. Patient has not seen any other physicians. Kylee JUNIOR Original Note: Addendum entered by Kylee Pardo 08/09/17 14:35: SW received a call from [facility]. They tried to reach patient's primary care doctor, but she has not practiced in [place] for almost a year now. Therefore patient has not seen a doctor for over a year. Home health will not be able to see her as she has to have a PCP. SW then tried to call patient, but the number was incorrect. SW then called patient's Garage Attendant at [facility] (Samuel Howell) and left her a voice mail letting her know patient does not have a PCP currently so SW could not set up home health. Kylee JUNIOR Original Note: ELVIN called [employer] and patient's insurance is showing active now. ELVIN called [facility] to make a referral and faxed information to them. She said they are in network with [facility]. They will run her insurance and if there are any problems she will let SW know. [facility] set up for patient fci, PT, OT, and aide Kylee JUNIOR
--- NOTE | 2017-08-10 15:38 | CASEMGMT ---
ELVIN received a call from Samuel Howell at [facility]. She said she spoke with patient and encouraged her to call and get a new primary care doctor as she cannot get home health. She gave ELVIN patient's correct phone number and ELVIN corrected patient's demographics. ELVIN then called [facility] and gave Susanne the correct phone number. ELVIN will call patient to follow up. Kylee JUNIOR
== END 2017-08-05 15:45 | disposition home or self-care (01) | DRG 871 ==
LOC: ED 12:58 → PCU 15:09
PROVIDERS: Physician Assistant; Admitting Provider Internal Medicine; Emergency Provider Emergency Medicine; Family Provider Family Medicine; PCP Family Medicine; Visit Provider Internal Medicine
DX: B37.7 Candidal sepsis (principal); E11.65 Type 2 diabetes mellitus with hyperglycemia; L03.319 Cellulitis of trunk, unspecified; F31.9 Bipolar disorder, unspecified; L30.4 Erythema intertrigo; I89.0 Lymphedema, not elsewhere classified; E87.6 Hypokalemia; I10 Essential (primary) hypertension; F41.9 Anxiety disorder, unspecified; M79.3 Panniculitis, unspecified; E66.01 Morbid (severe) obesity due to excess calories; Z68.39 Body mass index [BMI] 39.0-39.9, adult; Z71.3 Dietary counseling and surveillance; Z79.899 Other long term (current) drug therapy; Z79.4 Long term (current) use of insulin; Z87.891 Personal history of nicotine dependence
CPT/HCPCS: 36415; 80048; 82962; 83036; 83605; 85025; 85027; 87040; 87070; 87075; 87077; 87186; 87205; 87640; 93005; 97161; 97166; 97530; 97802; 99218; 99282; J7030; J7040; J7050; A4216; G0378

== ENCOUNTER 2017-08-11 11:43 | Emergency (ER) | payer MEDICAID, SELFPAY ==
[2017-08-11 11:44] VITALS: BP 178/131; PULSE 120; RESP 16; TEMP 36.5; O2SAT 96; BMI 41.7
[2017-08-11 12:06] LABS: Bedside Glucose 245 mg/dL (70-110)
--- NOTE | 2017-08-11 12:13 | EKG12_ITS ---
Test Reason : TACHY Blood Pressure : / mmHG Vent. Rate : 108 BPM Atrial Rate : 108 BPM P-R Int : 182 ms QRS Dur : 090 ms QT Int : 352 ms P-R-T Axes : 037 -09 017 degrees QTc Int : 471 ms Sinus tachycardia Otherwise normal ECG Confirmed by ARCENIO LEAL, NAEEM ([id number]), supervising editor trailer GUERRERO AGUERO ([id number]) on 08/15/2017 2:32:12 PM Referred By: EUGENE Confirmed By:NAEEM RG MD
--- NOTE | 2017-08-11 12:25 | RAD_ITS ---
STUDY: X-RAY CHEST REASON FOR EXAM: Female, 66 years old. Numbness and tingling of the entire body. TECHNIQUE: Single AP portable view of the chest. COMPARISON: Comparison is made with prior study dated June 23, 2017. FINDINGS: The lungs are clear and expanded. Scattered calcified granulomas. There is no demonstrated pleural abnormality. Normal size heart. Normal mediastinum and easton. Normal visualized pulmonary arteries. There is atherosclerotic calcification of the aortic arch with tortuosity. Normal visualized thoracic spine. Normal visualized ribs, clavicles, and shoulders. There is no demonstrated abnormality of the visualized soft tissue structures of the upper abdomen. RAD/Chest 1 View (Portable) IMPRESSION: No acute abnormality is seen. Electronically Signed: Ever Altamirano MD at 12:44 EST Tel [phone], Service support ,
[2017-08-11] MEDS: 0.9% Normal Saline 1,000 ML 1000 ML IV (12:28)
--- NOTE | 2017-08-11 12:28 | ED.RN ---
PT BROUGHT OVER BY COD CLERK [facility]
[2017-08-11 12:30] LABS: Absolute Lymphocyte Count 1.39 X10^3/ul (0.83-4.51); Basophil# 0.02 X10^3/uL; Basophil% 0.3 % (0-1); Eosinophil# 0.04 X10^3/uL; Eosinophils% 0.7 % (0-5); Hematocrit 43.3 % (37-47); Hemoglobin 14.4 g/dl (12.0-15.0); Lymphocyte # 1.39 X10^3/ul (4.0); Lymphocyte % 23.5 % (19-41); Mean Corp Hgb Conc 33.3 g/gl (32-36); Mean Corpuscular Hgb 30.4 pg (27.0-32.0); Mean Corpuscular Volume 91.4 fL (81-99); Mean Platelet Vol. 10.9 fl (6.2-12.0); Monocyte# 0.43 X10^3/uL; Monocyte% 7.3 % (0-10); Neutrophil # 4.02 X10^3/uL (2.7-7.7); Platelet Count 222 K/mm3 (150-450); RBC Distribution Width CV 13.8 % (11.6-14.6); RBC Distribution Width SD 45.5 fl (35.1-43.9); Red Blood Count 4.74 M/mm3 (4.2-5.4); White Blood Count 5.9 K/mm3 (4.4-11.0)
[2017-08-11 12:38] LABS: POSITIVE COUNT NO; POSITIVE DIFFERENTIAL NO; POSITIVE MORPHOLOGY NO
[2017-08-11 12:40] VITALS: BP 146/95; PULSE 106; RESP 18; O2SAT 97
[2017-08-11 12:54] LABS: ALB/GLOB Ratio 0.7 RATIO (0.9-2.4); AST(SGOT) 74 U/L (15-37); Alanine Aminotransfer ALT/SGPT 74 U/L (13-56); Albumin, Serum 3.2 g/dL (3.2-5.0); Alkaline Phosphatase 120 U/L (45-117); Anion Gap 8 (5-15); BUN 9 mg/dL (7-18); BUN/Creat Ratio 11.4 RATIO (10-20); Calcium,Total 8.7 mg/dL (8.5-10.1); Chloride 104 mmol/L (98-107); Creatinine, Serum 0.79 mg/dL (0.55-1.02); EST Glomerular Filtration Rate 78 mL/min (>60); Est Glom Filt Rate - Afr Amer 94 mL/min (>60); Estimated Creatinine Clearance 62.12 ml/min; Globulin 4.6 g/dL (2.2-4.2); Glucose 230 mg/dL (74-106); Lipase 140 U/L (73-393); Potassium 4.4 mmol/L (3.5-5.1); Protein, Total 7.8 g/dL (6.4-8.2); Sodium Level 138 mmol/L (136-145); Thyroid Stim Hormone (TSH) 2.62 uIU/mL (0.358-3.74)
[2017-08-11 13:34] LABS: Mucous, Urine 0 SEEN /hpf (<or=2+); Red Blood Cells-Urine 0 SEEN /hpf (0-5)
[2017-08-11 13:44] LABS: Color, Urine Yellow (Yellow); Glucose, Dipstick 250 mg/dl (Normal); Ketone-Dipstick Negative (Negative); Leukocyte Esterase-Dipstick 100 /ul (Negative); Nitrite-Dipstick Negative (Negative); Occult Blood-Urine Negative /ul (Negative); Protein-Dipstick Negative (Negative); Urine Bilirubin Dipstick Negative (Negative); Urine Clarity Clear (Clear); Urine Urobilinogen Normal (Normal)
[2017-08-11 13:59] LABS: Bacteria RARE /hpf (None Seen); Squamous Epithelial Cells - UA 0-5 SEEN /hpf (5-10); White Blood Cells 0-5 SEEN /hpf (0-5)
--- NOTE | 2017-08-11 14:47 | ED.DCSUM_ITS ---
- ER Visit Summary Date of Service: 08/11/17 Chief Complaint: Whole body tingling History of Present Illness: The patient is a 66 F who states that she was just discharged from the hospital last Tuesday. She is unsure of exactly why she was in the hospital but she does state that she had some potassium replacement she was sent home on an antibiotic. She states that for the past several days her whole body has been tingling. Dates from the top of her scalp to the tip of her toes her body tingles. No loss of sensation or of muscle strength. Patient has a bipolar history type 2 diabetes and hypertension. Other than her skin fold rash which placed her in the hospital for infection no other rashes. Physical Examination: Afebrile pressure 178/88 rate is 120 respirations are 16 pulse ox 96% Gen: Well-nourished well-developed Head: Normocephalic atraumatic Eyes: Perrl EOMI ENT: TMs clear no rhinorrhea moist mucous membranes Neck: Supple no lymphadenopathy no JVD nontender CVS: Regular rate rhythm no murmurs normal S1-S2 Respiratory: No distress clear to auscultation bilaterally chest nontender Abdomen: Soft nontender nondistended normal bowel sounds no masses Back: Nontender Extremity: Nontender no edema Skin: Normal color no rash Neuro: alert orientated ?3 CN II-XII intact normal strength sensation reflexes gait cerebellar Psych: Normal affect normal mood Test Results: Basic labs including liver panel were normal. Urinalysis negative chest x-ray negative EKG sinus at a rate of 108. Emergency Department Course and Treatment: She received IV fluids. I think a lot of her whole body tingling is related to anxiety. I do not appreciate any rash. She has no elevated bilirubin. Patient will be discharged home follow- up with her doctor and her oil field caser Impression: 1. Whole body paresthesia This note was generated with [employer] dictation software. It may contain incorrect words, spelling, and punctuation that were not noted in review of the chart prior to signing ED Disposition - Plan for ED Patient: Disposition: Home or Assisted Living Chief Complaint: Numb/Ting Instructions: ED Paraesthesias Referrals: Geovanni Chung MD [Primary Care Provider] - As soon as possible
[2017-08-11 15:06] VITALS: BP 160/80; PULSE 110; RESP 18; O2SAT 98
== END 2017-08-11 15:20 | disposition home or self-care (01) ==
PROVIDERS: Emergency Provider Emergency Medicine; Family Provider Internal Medicine; PCP Internal Medicine
DX: R20.2 Paresthesia of skin (principal); E11.9 Type 2 diabetes mellitus without complications; I10 Essential (primary) hypertension; F31.9 Bipolar disorder, unspecified; E66.9 Obesity, unspecified; Z79.4 Long term (current) use of insulin; Z79.899 Other long term (current) drug therapy; Z87.891 Personal history of nicotine dependence
CPT/HCPCS: 71045; 80053; 81001; 82962; 83690; 84443; 84484; 85025; 93005; 96360; 99284; J7030; A4216

== ENCOUNTER 2017-08-25 12:26 | Emergency (ER) | payer MEDICAID, SELFPAY ==
[2017-08-25 12:27] VITALS: BP 183/98; PULSE 95; RESP 18; TEMP 36.4; O2SAT 95; BMI 46.8
[2017-08-25 13:16] VITALS: BP 175/80; PULSE 90; RESP 14; O2SAT 98
--- NOTE | 2017-08-25 13:29 | ED.VISSUMM ---
- ER Visit Summary Date of Service: 08/25/17 Chief Complaint: Out of medications History of Present Illness: The patient is a [address] Diallo and Dr. Chung. She reports that she supposed to be on 0.5 mg of Klonopin 3 times daily and she ran out of this approximately month and a half ago. She also goes to be taking Lamictal and Seroquel. She reports that she ran out of those 2 weeks ago. She went to counseling center today and Dr. Diallo is not in and she could not get refills. She denies any suicidal or homicidal ideation. No auditory visual hallucinations. Physical Examination: Vitals: Stable. Afebrile. General: Well-nourished and well-developed. Head: Normocephalic atraumatic. Neck: Supple, no lymphadenopathy. No JVD. Nontender. Cardiovascular: Regular rate and rhythm. No murmurs. Respiratory: No respiratory distress. Clear to auscultation bilaterally. Abdominal: Soft, nontender, nondistended, normal bowel sounds. No guarding, rebound, or peritoneal signs. Back: Nontender. Extremities: Nontender, no edema. Skin: Normal color, no rash. Neurologic: Alert and oriented ?3. Cranial nerves II through XII are intact. Normal strength and sensation. Psych: Normal affect. Emergency Department Course and Treatment: An [facility] report was obtained which is consistent with this patient's story. Her last prescription for Klonopin was May 19. Her prescriptions have all been received from Dr. Smith and Dr. Diallo. Treatment Plan: Patient got a prescription from Serojj from the counseling center. She will be discharged prescriptions for Lamictal and Klonopin. Instructed to follow-up with her psychiatrist September 12 as previously scheduled. Disposition: To home in improved and stable condition. Impression: 1. Medication refill. This note was generated with [employer]cario dictation software. It may contain incorrect words, spelling, and punctuation that were not noted in review of the chart prior to signing ED Disposition - Plan for ED Patient: Disposition: Home or Assisted Living Chief Complaint: Mental Health Instructions: ED Manic Depression Prescriptions: Lamotrigine [Lamictal] 100 mg PO DAILY #30 tablet Clonazepam [Klonopin] 0.5 mg PO TID #90 tablet Referrals: Brie Diallo MD [NON-STAFF] - Keep Jimi appointment
[2017-08-25 13:47] VITALS: BP 168/85; PULSE 90; RESP 14; O2SAT 99
== END 2017-08-25 13:54 | disposition home or self-care (01) ==
LOC: ED 13:44
PROVIDERS: Emergency Provider Emergency Medicine; Family Provider Internal Medicine; PCP Internal Medicine
DX: Z76.0 Encounter for issue of repeat prescription (principal); F31.9 Bipolar disorder, unspecified; F41.9 Anxiety disorder, unspecified; E11.9 Type 2 diabetes mellitus without complications; Z72.0 Tobacco use; Z79.4 Long term (current) use of insulin; Z79.899 Other long term (current) drug therapy
CPT/HCPCS: 99283

== ENCOUNTER → 2017-08-31 09:48 | Outpatient (CLI) | payer MEDICAID, SELFPAY ==
[2017-08-31 10:42] LABS: Creatinine, Urine (random) < 13.00 mg/dL (NO RANGE EST.); Microalbumin,Random Urine < 5.0 mg/L (NO RANGE EST.)
[2017-08-31 10:54] LABS: Cholesterol 215 mg/dL (200); High Density Lipoprotein 54 mg/dL; Triglycerides 144 mg/dL; Very Low Density Lipoprotein 29 mg/dL (5-40)
== END ==
PROVIDERS: Family Provider Internal Medicine; PCP Internal Medicine; Visit Provider Internal Medicine
DX: E11.9 Type 2 diabetes mellitus without complications (principal)
CPT/HCPCS: 36415; 80061; 82043; 82570

== ENCOUNTER 2019-02-28 16:14 | Emergency (ER) | payer MEDICARE, SELFPAY ==
[2019-02-28 16:15] VITALS: BP 169/101; PULSE 116; RESP 18; TEMP 36.6; O2SAT 96; BMI 33.3
--- NOTE | 2019-02-28 17:01 | EKG12_ITS ---
Test Reason : MED REFILL Blood Pressure : / mmHG Vent. Rate : 099 BPM Atrial Rate : 099 BPM P-R Int : 180 ms QRS Dur : 084 ms QT Int : 378 ms P-R-T Axes : 046 -16 -02 degrees QTc Int : 485 ms Normal sinus rhythm Inferior infarct , age undetermined Anteroseptal infarct , age undetermined Abnormal ECG Confirmed by HILLARY LEAL, NICOLE ([id number]), science editor MADONNA UMANZOR ([id number]) on 03/02/2019 10:18:12 A M Referred By: ESTELLA Confirmed By:RANDALL THORNTON MD
--- NOTE | 2019-02-28 17:25 | CM.ED ---
SOCIAL WORK INFORMANT: NURSECASSIDY REASON FOR REFERRAL: D/C PLANNING INFORMED BY CASSIDY LEMUS THAT CHANNEL INSTALLERMARCELLO CALLED IN AND STATED HAD LEFT MESSAGE FOR ALL IN CASE MANAGEMENT. MARCELLO STATES PATIENT COULD BE A DIRECT ADMIT TO [facility] IF H&P IS SENT AND IF UNABLE TO GET INTO LONG TERM IS ABLE TO STAY WITH EX- FOR 2 MORE DAYS. THIS WORKER MET WITH PATIENT AND INTRODUCED ROLE AND REASON FOR REFERRAL. PATIENT HAS BEEN EVICTED FROM HOME AND HAS BEEN STAYING WITH EX-. PATIENT DOES NOT HAVE CONTACT NUMBER FOR CHANNEL INSTALLERMARCELLO. CALL TO [facility]. INFORMED ADMISSIONS HAS LEFT FOR THE DAY. ATTEMPTED TO CONTACT DR. WILSON'S OFFICE, CLOSED FOR THE DAY. PATIENT REPORTS DOES FEEL SAFE RETURNING TO EX-HUSBANDS HOME. ANTICIPATE FOLLOW UP FROM CHANNEL INSTALLER TOMORROW. STAFF UPDATED. PLAN: DR. ZUNIGA TO COMPLETE WORK UP, ANTICIPATE HOME WITH EX- BEFORE UNTIL OTHER ARRANGEMENTS CAN BE MADE THROUGH PATIENT'S CHANNEL INSTALLER. LALO CHAIDEZ, EMBROIDERY FINISHER, HEALTHCARE SALES REPRESENTATIVE.
--- NOTE | 2019-02-28 17:53 | NURSING ---
clotilde widdows called , pt's case finishing machine adjuster through insurance and pt needing placement for non compliance caitlyn d/t being recently evicted. working with [facility] for bed. pt okd to stay with ex for couple days.
[2019-02-28 17:54] LABS: Absolute Lymphocyte Count 2.02 X10^3/uL (0.83-4.51); Absolute Neutrophil Count 4.2 X10^3/uL (2.0-7.7); Basophil# 0.03 X10^3/uL; Basophil% 0.4 % (0-1); Eosinophil# 0.09 X10^3/uL; Eosinophils% 1.3 % (0-5); Hematocrit 45.7 % (37-47); Hemoglobin 15.7 g/dL (12.0-15.0); Lymphocyte # 2.02 X10^3/ul (4.0); Lymphocyte % 29.2 % (19-41); Mean Corp Hgb Conc 34.4 g/dL (32-36); Mean Corpuscular Volume 90.3 fL (81-99); Monocyte# 0.57 X10^3/uL; Monocyte% 8.2 % (0-10); NRBC Flagged by Analyzer 0 % (0-5); Neutrophil # 4.19 X10^3/uL (2.7-7.7); Neutrophil % 60.8 % (47-70); Platelet Count 181 K/mm3 (150-450); RBC Distribution Width CV 13.1 % (11.6-14.6); RBC Distribution Width SD 42.7 fl (35.1-43.9); Red Blood Count 5.06 M/mm3 (4.2-5.4); White Blood Count 6.9 K/mm3 (4.4-11.0)
[2019-02-28 18:11] LABS: Anion Gap 8 (5-15); BUN 9 mg/dL (7-18); BUN/Creat Ratio 11.5 RATIO (10-20); Calcium,Total 9.3 mg/dL (8.5-10.1); Chloride 101 mmol/L (98-107); Creatinine, Serum 0.79 mg/dL (0.55-1.02); EST Glomerular Filtration Rate 78 mL/min (>60); Est Glom Filt Rate - Afr Amer 94 mL/min (>60); Glucose 347 mg/dL (74-106); Potassium 3.6 mmol/L (3.5-5.1); Sodium Level 134 mmol/L (136-145)
[2019-02-28] MEDS: 0.9% Normal Saline 1,000 ML 150 ML IV (18:17)
[2019-02-28 19:26] LABS: Mucous, Urine 0 SEEN /hpf (<or=2+); Red Blood Cells-Urine 0 SEEN /hpf (0-5)
[2019-02-28 19:52] LABS: Color, Urine Yellow (Yellow); Glucose, Dipstick 1000 mg/dl (Normal); Ketone-Dipstick 15 mg/dl (Negative); Leukocyte Esterase-Dipstick 500 /ul (Negative); Nitrite-Dipstick Positive (Negative); Occult Blood-Urine 25 /ul (Negative); Protein-Dipstick 30 mg/dl (Negative); Urine Bilirubin Dipstick Negative (Negative); Urine Clarity Cloudy (Clear); Urine Urobilinogen Normal (Normal)
[2019-02-28 20:00] LABS: Squamous Epithelial Cells - UA 5-10 SEEN /hpf (5-10)
[2019-02-28 20:01] LABS: White Blood Cells 50-100 SEEN /hpf (0-5)
[2019-02-28 20:02] LABS: Bacteria 3+ /hpf (None Seen)
--- NOTE | 2019-02-28 20:50 | ED.VISSUMM ---
- ER Visit Summary Date of Service: 02/28/19 Chief Complaint: [Requesting medication refills] History of Present Illness: The patient is a 68 F [presents to the emergency department stating that she was just kicked out of her apartment recently and is run out some of her medications that she would like to have refilled. Patient states that she is currently staying with her ex- but believes that she needs to be in an assisted living facility and she has a rolling machine operator as trying to get her placed. Patient was told to come to the emergency department and have a history and physical performed. Patient has no complaints. She denies any chest pain or shortness of breath. She denies abdominal pain. She denies urinary symptoms. Patient is a diabetic and states she is been taking her p.o. diabetic medications. Patient tells me that she ran out of her Lamictal and Seroquel and Klonopin. He is not homicidal or suicidal. Patient has history of type 2 diabetes as well as seizure disorder, history of UTIs, bipolar, and depression.] Physical Examination: [HEENT-PERRLA, EOMI. Cranial nerves II through XII grossly intact. TMs clear. Mucous membranes moist. No adenopathy. Cardiovascular-regular rate and rhythm without murmur or ectopy Lungs-clear to auscultation, chest wall stable without crepitus or subcu emphysema Abdomen-normoactive bowel sounds, soft, nontender, no rebound or rigidity, no peritoneal signs. Extremities-intact ?4, normal range of motion, normal pulses, atraumatic] Test Results: [CBC with differential obtained showed a white count 6.9, hemoglobin 15.7, hematocrit 46, platelets 181. Chemistries unremarkable. Glucose was 347. Troponin is less than 0.15. Urinalysis was positive for UTI with 500 leuk trase and positive nitrites and 5200 WBCs and +3 bacteria.] Emergency Department Course and Treatment: [Was medicated with Keflex 500 mill grams p.o. Patient was seen by our social media campaign manager and was felt she could be discharged home in her foster care case manager can attempt placement for her as an outpatient.] Treatment Plan: [Patient will be given prescriptions for her Klonopin, Seroquel, and Lamictal. Patient was given a option for Keflex. Urine culture will be sent.] Disposition: [Discharged home in stable condition.] Impression: [UTI Medication refills] This note was generated with Lumics dictation software. It may contain incorrect words, spelling, and punctuation that were not noted in review of the chart prior to signing ED Disposition - Plan for ED Patient: Referrals: Geovanni Chung MD [Primary Care Provider] -
--- NOTE | 2019-02-28 20:53 | ED.DEP ---
ED Disposition - Plan for ED Patient: Instructions: Med Refill, Urinary Tract Infections in Women Prescriptions: Cephalexin [Keflex] 500 mg PO Q6 #40 cap Prescription Printed Clonazepam [Klonopin] 0.5 mg PO Q8H PRN PRN #30 tab PRN Reason: Anxiety Prescription Printed Lamotrigine [Lamictal] 100 mg PO DAILY #30 tab Prescription Printed Quetiapine Fumarate [Seroquel Xr] 600 mg PO QHS #60 tab.sr.24h Prescription Printed Referrals: Geovanni Chung MD [Primary Care Provider] - 3-5 Days
[2019-02-28 21:07] VITALS: BP 153/99; PULSE 87; RESP 16; O2SAT 97
[2019-02-28] MEDS: Cephalexin 250 MG Capsule 500 MG PO (21:07)
== END 2019-02-28 21:15 | disposition home or self-care (01) ==
PROVIDERS: Emergency Provider Emergency Medicine; Family Provider Internal Medicine; PCP Internal Medicine
DX: Z76.0 Encounter for issue of repeat prescription (principal); N39.0 Urinary tract infection, site not specified; E11.9 Type 2 diabetes mellitus without complications; G40.909 Epilepsy, unspecified, not intractable, without status epilepticus; F32.9 Major depressive disorder, single episode, unspecified; F41.9 Anxiety disorder, unspecified; Z79.4 Long term (current) use of insulin; Z79.899 Other long term (current) drug therapy; Z87.440 Personal history of urinary (tract) infections
CPT/HCPCS: 80048; 81001; 84484; 85025; 87077; 87086; 87088; 87186; 93005; 96360; 96361; 99284; J7030; A4216

== ENCOUNTER → 2020-03-21 15:20 | Outpatient (CLI) | payer MEDICARE, MEDICAID, SELFPAY ==
[2020-03-21 14:44] VITALS: BMI 46.7
[2020-03-21 17:00] LABS: Absolute Lymphocyte Count 1.55 X10^3/uL (0.83-4.51); Absolute Neutrophil Count 3.3 X10^3/uL (2.0-7.7); Basophil# 0.02 X10^3/uL; Basophil% 0.4 % (0-1); Eosinophil# 0.13 X10^3/uL; Eosinophils% 2.4 % (0-5); Hemoglobin 13.9 g/dL (12.0-15.0); Lymphocyte # 1.55 X10^3/ul (4.0); Lymphocyte % 28.7 % (19-41); Mean Corp Hgb Conc 33.1 g/dL (32-36); Mean Corpuscular Volume 90.7 fL (81-99); Mean Platelet Vol. 12.8 fl (6.2-12.0); Monocyte# 0.41 X10^3/uL; Monocyte% 7.6 % (0-10); NRBC Flagged by Analyzer 0 % (0-5); Neutrophil # 3.29 X10^3/uL (2.7-7.7); Neutrophil % 60.7 % (47-70); Platelet Count 129 K/mm3 (150-450); RBC Distribution Width CV 13.5 % (11.6-14.6); RBC Distribution Width SD 45.1 fl (35.1-43.9); Red Blood Count 4.63 M/mm3 (4.2-5.4); White Blood Count 5.4 K/mm3 (4.4-11.0)
[2020-03-21 17:32] LABS: ALB/GLOB Ratio 0.7 RATIO (0.9-2.4); AST(SGOT) 42 U/L (15-37); Alanine Aminotransfer ALT/SGPT 51 U/L (13-56); Albumin, Serum 3.4 g/dL (3.2-5.0); Alkaline Phosphatase 178 U/L (45-117); Anion Gap 6 (5-15); BUN 13 mg/dL (7-18); BUN/Creat Ratio 13.2 RATIO (10-20); Calcium,Total 9.2 mg/dL (8.5-10.1); Chloride 105 mmol/L (98-107); Cholesterol 126 mg/dL (200); Creatinine, Serum 0.98 mg/dL (0.55-1.02); EST Glomerular Filtration Rate 60 mL/min (>60); Est Glom Filt Rate - Afr Amer 73 mL/min (>60); Globulin 4.7 g/dL (2.2-4.2); Glucose 365 mg/dL (74-106); High Density Lipoprotein 63 mg/dL; Potassium 4.7 mmol/L (3.5-5.1); Protein, Total 8.1 g/dL (6.4-8.2); Sodium Level 135 mmol/L (136-145); Triglycerides 129 mg/dL; Very Low Density Lipoprotein 26 mg/dL (5-40)
== END ==
PROVIDERS: PCP Internal Medicine; Referring Provider Nurse Practitioner Family; Visit Provider Nurse Practitioner Family
DX: E11.9 Type 2 diabetes mellitus without complications (principal); F31.9 Bipolar disorder, unspecified
CPT/HCPCS: 36415; 80053; 80061; 84443; 85025

== ENCOUNTER → 2021-04-09 05:50 | Outpatient (REF) | payer MEDICAID, SELFPAY ==
[2021-04-09 08:41] LABS: Absolute Neutrophil Count 3.1 X10^3/uL (2.0-7.7); Basophil# 0.03 X10^3/uL; Basophil% 0.5 % (0-1); Eosinophil# 0.26 X10^3/uL; Eosinophils% 4.5 % (0-5); Hematocrit 41.6 % (37-47); Hemoglobin 13.8 g/dL (12.0-15.0); Lymphocyte % 31.1 % (19-41); Mean Corp Hgb Conc 33.2 g/dL (32-36); Mean Corpuscular Hgb 29.3 pg (27.0-32.0); Mean Corpuscular Volume 88.3 fL (81-99); Mean Platelet Vol. 11.2 fl (6.2-12.0); Monocyte# 0.63 X10^3/uL; Monocyte% 10.9 % (0-10); NRBC Flagged by Analyzer 0 % (0-5); Neutrophil # 3.05 X10^3/uL (2.7-7.7); Neutrophil % 52.7 % (47-70); Platelet Count 171 K/mm3 (150-450); RBC Distribution Width CV 14.5 % (11.6-14.6); RBC Distribution Width SD 46.9 fl (35.1-43.9); Red Blood Count 4.71 M/mm3 (4.2-5.4); White Blood Count 5.8 K/mm3 (4.4-11.0)
[2021-04-09 09:07] LABS: ALB/GLOB Ratio 0.6 RATIO (0.9-2.4); AST(SGOT) 40 U/L (15-37); Alanine Aminotransfer ALT/SGPT 40 U/L (13-56); Albumin, Serum 2.9 g/dL (3.2-5.0); Alkaline Phosphatase 161 U/L (45-117); Anion Gap 7 (5-15); BUN 12 mg/dL (7-18); BUN/Creat Ratio 14.7 RATIO (10-20); Calcium,Total 9.2 mg/dL (8.5-10.1); Chloride 104 mmol/L (98-107); Creatinine, Serum 0.82 mg/dL (0.55-1.02); EST Glomerular Filtration Rate 74 mL/min (>60); Est Glom Filt Rate - Afr Amer 90 mL/min (>60); Globulin 4.5 g/dL (2.2-4.2); Glucose 206 mg/dL (74-106); Potassium 4.4 mmol/L (3.5-5.1); Protein, Total 7.4 g/dL (6.4-8.2); Sodium Level 136 mmol/L (136-145)
[2021-04-09 12:17] LABS: Vitamin D,25 Hydroxy 103.7 ng/mL
[2021-04-13 14:32] LABS: Hemoglobin A1c 7.9 % (3.8-5.6)
== END ==
LOC: OLS.SWAL 05:50
PROVIDERS: PCP Internal Medicine
DX: E11.9 Type 2 diabetes mellitus without complications (principal); E55.9 Vitamin D deficiency, unspecified; E78.5 Hyperlipidemia, unspecified
CPT/HCPCS: 36415; 80053; 82306; 83036; 85025

== ENCOUNTER → 2021-06-12 05:00 | Outpatient (REF) | payer MEDICAID, SELFPAY ==
[2021-06-12 07:38] LABS: Vitamin D,25 Hydroxy 101.7 ng/mL
== END ==
LOC: OLS.SWAL 05:00
PROVIDERS: PCP Internal Medicine
DX: E55.9 Vitamin D deficiency, unspecified (principal)
CPT/HCPCS: 36415; 82306

== ENCOUNTER → 2021-07-08 | Outpatient (REF) | payer MEDICARE, MEDICAID, SELFPAY ==
[2021-07-08 10:12] LABS: Absolute Lymphocyte Count 1.26 X10^3/uL (0.83-4.51); Absolute Neutrophil Count 2.8 X10^3/uL (2.0-7.7); Basophil# 0.03 X10^3/uL; Basophil% 0.6 % (0-1); Eosinophil# 0.22 X10^3/uL; Eosinophils% 4.5 % (0-5); Hematocrit 37.1 % (37-47); Hemoglobin 12.2 g/dL (12.0-15.0); Lymphocyte # 1.26 X10^3/ul (0.83-4.51); Lymphocyte % 25.7 % (19-41); Mean Corp Hgb Conc 32.9 g/dL (32-36); Mean Corpuscular Hgb 29.3 pg (27.0-32.0); Mean Corpuscular Volume 89.2 fL (81-99); Mean Platelet Vol. 11.2 fl (6.2-12.0); Monocyte# 0.53 X10^3/uL; Monocyte% 10.8 % (0-10); NRBC Flagged by Analyzer 0 % (0-5); Neutrophil # 2.84 X10^3/uL (2.7-7.7); Platelet Count 159 K/mm3 (150-450); RBC Distribution Width CV 14.6 % (11.6-14.6); RBC Distribution Width SD 47.6 fl (35.1-43.9); Red Blood Count 4.16 M/mm3 (4.2-5.4); White Blood Count 4.9 K/mm3 (4.4-11.0)
[2021-07-08 10:27] LABS: ALB/GLOB Ratio 0.6 RATIO (0.9-2.4); AST(SGOT) 32 U/L (15-37); Alanine Aminotransfer ALT/SGPT 32 U/L (13-56); Albumin, Serum 2.9 g/dL (3.2-5.0); Alkaline Phosphatase 131 U/L (45-117); Anion Gap 9 (5-15); BUN 16 mg/dL (7-18); BUN/Creat Ratio 18.5 RATIO (10-20); Chloride 104 mmol/L (98-107); Creatinine, Serum 0.87 mg/dL (0.55-1.02); EST Glomerular Filtration Rate 69 mL/min (>60); Est Glom Filt Rate - Afr Amer 84 mL/min (>60); Globulin 4.6 g/dL (2.2-4.2); Glucose 181 mg/dL (74-106); Potassium 4.5 mmol/L (3.5-5.1); Protein, Total 7.5 g/dL (6.4-8.2); Sodium Level 136 mmol/L (136-145)
[2021-07-08 10:30] LABS: Vitamin D,25 Hydroxy 88.3 ng/mL
== END | disposition home or self-care (01) ==
LOC: OLS.SWAL 05:00
PROVIDERS: PCP Internal Medicine; Visit Provider Family Medicine
DX: E78.5 Hyperlipidemia, unspecified (principal); E11.9 Type 2 diabetes mellitus without complications; E55.9 Vitamin D deficiency, unspecified
CPT/HCPCS: 36415; 80053; 82306; 85025

== ENCOUNTER → 2021-07-14 | Outpatient (REF) | payer MEDICARE, MEDICAID, SELFPAY ==
[2021-07-14 08:35] LABS: Absolute Lymphocyte Count 1.32 X10^3/uL (0.83-4.51); Basophil# 0.03 X10^3/uL; Basophil% 0.6 % (0-1); Eosinophil# 0.16 X10^3/uL; Eosinophils% 3.1 % (0-5); Hematocrit 37.6 % (37-47); Hemoglobin 12.9 g/dL (12.0-15.0); Lymphocyte # 1.32 X10^3/ul (0.83-4.51); Mean Corp Hgb Conc 34.3 g/dL (32-36); Mean Corpuscular Hgb 30.5 pg (27.0-32.0); Mean Corpuscular Volume 88.9 fL (81-99); Mean Platelet Vol. 10.9 fl (6.2-12.0); Monocyte# 0.53 X10^3/uL; Monocyte% 10.4 % (0-10); NRBC Flagged by Analyzer 0 % (0-5); Neutrophil # 3.02 X10^3/uL (2.7-7.7); Neutrophil % 59.5 % (47-70); Platelet Count 170 K/mm3 (150-450); RBC Distribution Width CV 14.5 % (11.6-14.6); RBC Distribution Width SD 46.7 fl (35.1-43.9); Red Blood Count 4.23 M/mm3 (4.2-5.4); White Blood Count 5.1 K/mm3 (4.4-11.0)
[2021-07-14 08:56] LABS: ALB/GLOB Ratio 0.6 RATIO (0.9-2.4); AST(SGOT) 26 U/L (15-37); Alanine Aminotransfer ALT/SGPT 28 U/L (13-56); Albumin, Serum 2.9 g/dL (3.2-5.0); Alkaline Phosphatase 144 U/L (45-117); Anion Gap 8 (5-15); BUN 14 mg/dL (7-18); Calcium,Total 8.7 mg/dL (8.5-10.1); Chloride 104 mmol/L (98-107); Creatinine, Serum 0.78 mg/dL (0.55-1.02); EST Glomerular Filtration Rate 78 mL/min (>60); Est Glom Filt Rate - Afr Amer 95 mL/min (>60); Globulin 4.7 g/dL (2.2-4.2); Glucose 201 mg/dL (74-106); Potassium 4.2 mmol/L (3.5-5.1); Protein, Total 7.6 g/dL (6.4-8.2); Sodium Level 136 mmol/L (136-145)
== END | disposition home or self-care (01) ==
LOC: OLS.SWAL 05:00
PROVIDERS: PCP Internal Medicine
DX: E11.9 Type 2 diabetes mellitus without complications (principal); E55.9 Vitamin D deficiency, unspecified; E78.5 Hyperlipidemia, unspecified
CPT/HCPCS: 36415; 80053; 82306; 85025

== ENCOUNTER 2021-07-26 09:14 | Emergency (ER) | payer MEDICARE, MEDICAID, SELFPAY ==
[2021-07-26 09:16] VITALS: BP 141/76; PULSE 107; RESP 16; TEMP 36.2; O2SAT 98; BMI 52.2
[2021-07-26 09:33] LABS: Absolute Lymphocyte Count 1.24 X10^3/uL (0.83-4.51); Absolute Neutrophil Count 3.2 X10^3/uL (2.0-7.7); Basophil# 0.03 X10^3/uL; Basophil% 0.6 % (0-1); Eosinophils% 3.9 % (0-5); Hematocrit 41.1 % (37-47); Hemoglobin 13.8 g/dL (12.0-15.0); Lymphocyte # 1.24 X10^3/ul (0.83-4.51); Lymphocyte % 24.5 % (19-41); Mean Corp Hgb Conc 33.6 g/dL (32-36); Mean Corpuscular Hgb 29.6 pg (27.0-32.0); Mean Corpuscular Volume 88.2 fL (81-99); Mean Platelet Vol. 10.1 fl (6.2-12.0); Monocyte# 0.43 X10^3/uL; Monocyte% 8.5 % (0-10); NRBC Flagged by Analyzer 0 % (0-5); Neutrophil # 3.15 X10^3/uL (2.7-7.7); Neutrophil % 62.1 % (47-70); Platelet Count 151 K/mm3 (150-450); RBC Distribution Width CV 14.6 % (11.6-14.6); RBC Distribution Width SD 46.8 fl (35.1-43.9); Red Blood Count 4.66 M/mm3 (4.2-5.4); White Blood Count 5.1 K/mm3 (4.4-11.0)
[2021-07-26 09:47] LABS: Anion Gap 6 (5-15); BUN 15 mg/dL (7-18); BUN/Creat Ratio 17.3 RATIO (10-20); Calcium,Total 9.2 mg/dL (8.5-10.1); Chloride 105 mmol/L (98-107); Creatinine, Serum 0.87 mg/dL (0.55-1.02); EST Glomerular Filtration Rate 69 mL/min (>60); Est Glom Filt Rate - Afr Amer 84 mL/min (>60); Estimated Creatinine Clearance 55.69 ml/min; Glucose 185 mg/dL (74-106); Potassium 4.4 mmol/L (3.5-5.1); Sodium Level 135 mmol/L (136-145)
--- NOTE | 2021-07-26 10:08 | US_ITS ---
STUDY: ULTRASOUND OF THE FEMALE PELVIS - COMPLETE REASON FOR EXAM: Female, 70 years old. vaginal bleeding,Postmenopausal LMP: Menopause TECHNIQUE: Transabdominal and Transvaginal TECHNICAL QUALITY: Adequate. COMPARISON: None. FINDINGS: The uterus is anteverted and is in a midline position. The uterus measures 9.0 x 6.0 x 3.8 cm. 1.2 cm hypoechoic mass in the endocervical canal worrisome for cervical carcinoma. Clinical correlation is recommended. The endometrium measures 18 mm in thickness, and is hyperechoic. There is no demonstrated endometrial mass. There is no demonstrated myometrial mass. I.U.D. - The patient does not have an I.U.D. The ovaries are not visualized.. There is no fluid in the cul-de-sac. The pre void volume of the bladder was ml. The post void volume of the bladder was ml. Polycystic ovary disease: No. US/Transvaginal Non- IMPRESSION: Suspect cervical mass, possibly cervical carcinoma, with endometrial hyperplasia. Clinical correlation is recommended. Electronically Signed: Dilan Solis MD at 11:54 EST ,
[2021-07-26] MEDS: 0.9% Normal Saline 1,000 ML 1000 ML IV (10:35)
--- NOTE | 2021-07-26 10:55 | EDS_ITS ---
HPI HPI - Female History of Present Illness Chief Complaint: Vag Bleeding Informant: patient Narrative Narrative: Patient is a 62-year-old female with history of bipolar disorder, seizures, type 2 diabetes mellitus and lymphedema presenting with vaginal bleeding. Patient developed vaginal bleeding this morning. She states she has had passage of large amount of clots and constant bleeding. She first noticed it when she was on the toilet and wiped blood. She feels confident that coming from her vagina and not her rectum or her urine. She is on any blood thinners. She denies any history of postmenopausal vaginal bleeding. She currently is living at the [facility]. Patient has no other complaints at this time. She denies feeling faint or lightheaded. [facility] Medical History Bipolar 1 disorder history of broken heel left foot History of recurrent UTIs History of seizures Hyperlipidemia Type 1 diabetes mellitus Vitamin D deficiency Home Medications quetiapine 600 mg PO QHS 10/28/16 [History Last Taken 08/01/17] clonazepam 0.5 mg PO TID #90 tab 08/25/17 [Rx Last Taken Unknown] atorvastatin 40 mg tablet 40 mg PO QDAY #90 tab 08/31/17 [Rx Last Taken Unknown] lisinopril 5 mg tablet 5 mg PO QDAY #90 tab 09/08/17 [Rx Last Taken Unknown] blood sugar diagnostic #150 ea 09/14/17 [Rx Last Taken Unknown] blood-glucose meter #1 ea 09/14/17 [Rx Last Taken Unknown] Quetiapine Fumarate [Seroquel Xr] 600 mg PO QHS #60 tab.sr.24h 02/28/19 [Rx Last Taken Unknown] lamotrigine 100 mg PO DAILY #30 tab 02/28/19 [Rx Last Taken Unknown] blood sugar diagnostic #100 ea 03/01/19 [Rx Last Taken Unknown] blood-glucose meter #1 ea 03/01/19 [Rx Last Taken Unknown] lancets 28 gauge #200 ea 03/01/19 [Rx Last Taken Unknown] miconazole nitrate 2 % topical powder 1 applic TOPICAL BID #85 g 03/01/19 [Rx Last Taken Unknown] dulaglutide 1.5 mg/0.5 mL subcutaneous pen injector 1.5 mg SC QWEEK #2 ml 03/21/20 [Rx Last Taken Unknown] insulin glargine 100 unit/mL (3 mL) subcutaneous pen 65 unit SC QHS ml 03/21/20 [History Last Taken Unknown] lamotrigine 100 mg tablet 100 mg PO DAILY tab 03/21/20 [History Last Taken Unknown] clonazepam 0.5 mg tablet 0.5 mg PO Q8H PRN PRN #90 tab 06/25/20 [Rx Last Taken Unknown] dextrose 40 % oral gel 10 g PO Q15M PRN 06/25/20 [History Last Taken Unknown] ergocalciferol (vitamin D2) 25,000 unit capsule unit PO 06/25/20 [History Last Taken Unknown] insulin lispro 100 unit/mL subcutaneous pen 14 unit SC TID ml 06/25/20 [History Last Taken Unknown] lactobacillus combination no.9 4 billion cell capsule 4,000 mmu cells PO DAILY 06/25/20 [History Last Taken Unknown] Allergy/AdvReac Type Severity Reaction Status Date / Time ciprofloxacin [From Cipro] Allergy Anaphylaxis Verified 07/26/21 09:16 ciprofloxacin HCl Allergy Anaphylaxis Verified 07/26/21 09:16 [From Cipro] Iodinated Contrast Media Allergy Rash Verified 07/26/21 09:16 [Iodinated Contrast Media - IV Dye] paliperidone [From Invega] Allergy Rash Verified 07/26/21 09:16 Penicillins Allergy RASH AND Verified 07/26/21 09:16 ITCHING red dye Allergy Hives Verified 07/26/21 09:16 Sulfa (Sulfonamide Allergy RASH AND Verified 07/26/21 09:16 Antibiotics) ITCHING metformin AdvReac Nausea/Vom/ Verified 07/26/21 09:16 Diarrhea shellfish derived AdvReac Nausea/Vom/ Verified 07/26/21 09:16 Diarrhea Family History Mother Diabetes Hypertension Heart disease Thyroid disorder Father CVA (cerebral vascular accident) Diabetes Brother Parkinson disease Thyroid disorder Lupus Alcoholism Blood clots in brain Grandfather Heart disease Asthma Social History Smoking Status: Former smoker Tobacco: How many years used: 45 how long ago did patient quit smokin11/2016 substance use type: does not use what type of physical activity do you participate in: none ROS ROS ED Constitutional Constitutional ED: Denies chills or fever(s) Eyes Eyes: Denies change in vision Cardiovascular Cardiovascular: Denies chest pain or palpitations Respiratory/Chest Respiratory/Chest: Denies cough or dyspnea Gastrointestinal Gastrointestinal: Reports abdominal pain; Denies constipation, diarrhea, melena, nausea or vomiting Genitourinary Genitourinary ED: Reports other Details: vaginal bleeding ; Denies dysuria, hematuria or urinary frequency Musculoskeletal Musculoskeletal: Denies arthralgias or myalgias Integumentary Denies rash Neurologic Neurologic: Denies headache(s) or weakness Psychiatric Psychiatric: Denies depression EXAM Physical Exam Const Vital Signs: 07/26/21 09:16 07/26/21 11:28 07/26/21 12:28 Temperature 97.2 F L Temperature Source Temporal Pulse Rate 107 H 98 Respiratory Rate 16 16 23 H Blood Pressure 141/76 H 140/72 H Blood Pressure Mean 97 94 Pulse Ox 98 99 Oxygen Delivery Method Room Air Room Air Positive well nourished and well developed General Appearance ED: well developed; Negative for pallor HEENT Reports moist mucous membranes Negative for trauma Eyes PERRL and EOMs intact bilaterally General Eye ED: Negative for pale conjunctiva Neck supple Chest Wall inspection of chest normal Resp normal respiratory effort and clear to auscultation bilaterally Cardio regular rhythm and no murmurs Rate: tachycardic GI normal to inspection, nondistended, normoactive bowel sounds, soft to palpation, non-tender and non-distended GI Narrative: No bleeding noted on rectal exam. external exam normal Narrative: Patient had passage of dark red blood on vaginal exam. Back/Spine no CVA tenderness Extremity normal to inspection and full ROM General Extremety ED: Yes edema General Extremity: edema Neuro oriented x3 Sensorium / Orientation: alert Psych mental status grossly normal Skin no rashes or lesions noted General Skin Exam: Negative for pallor MDM MDM MDM Narrative Medical decision making narrative: Patient evaluated for sudden onset of vaginal bleeding. On exam patient does have obvious vaginal bleeding. It is dark red blood and she does not bleed through a pad the entire time she is in the ER. She is mildly tachycardic but remains hemodynamically stable in the emergency room. Hemoglobin is normal at 13.8. Patient is minimally ambulatory at baseline so we do not get her up to walker. She is coming from [facility] where she is in assisted living. Transvaginal ultrasound obtained shows cervical mass and hyperplasia concerning for acute cervical cancer diagnosis. Spoke with gynecology on-call, Dr. Tsang, from [facility] gynecology. She instructed to have the patient follow-up tomorrow for close outpatient follow-up and treatment. Given this is likely new cancer diagnosis I did put in an order for [facility] fast pass as well. Dr. Tsang does say that if patient becomes unstable she should be transferred to a facility that has Hard[employer] Floor Install[employer]- oncology. At this time I think patient is stable for outpatient follow-up. Is given strict return precautions. Counseled on the importance of close follow-up as a way to further diagnose and treat likely cervical cancer. Patient verbalizes agreement and understands this plan. Patient's nurse doing so is contacted with plan of care and they are agreeable and feel that they can help her get to an appointment tomorrow. Lab Data Attestation: I reviewed the patient's lab results. Labs: Laboratory Results - last 24 hr 07/26/21 07/26/21 07/26/21 09:25 09:25 10:34 WBC 5.1 RBC 4.66 Hgb 13.8 Hct 41.1 MCV 88.2 MCH 29.6 MCHC 33.6 RDW Std Deviation 46.8 H RDW Coeff of Bebo 14.6 Plt Count 151 MPV 10.1 Immature Gran % (Auto) 0.400 Neut % (Auto) 62.1 Lymph % (Auto) 24.5 Lanier % (Auto) 8.5 Eos % (Auto) 3.9 Baso % (Auto) 0.6 Absolute Neuts (auto) 3.2 Absolute Lymphs (auto) 1.24 Nucleated RBC % 0 Sodium 135 L Potassium 4.4 Chloride 105 Carbon Dioxide 24.0 Anion Gap 6 BUN 15 Creatinine 0.87 Estim Creat Clear Calc 55.69 Est GFR (MDRD) Af Amer 84 Est GFR (MDRD) Non-Af 69 BUN/Creatinine Ratio 17.3 Glucose 185 H Calcium 9.2 Blood Type Cancelled Antibody Screen Cancelled Crossmatch See Detail 07/26/21 12:00 WBC RBC Hgb Hct MCV MCH MCHC RDW Std Deviation RDW Coeff of Bebo Plt Count MPV Immature Gran % (Auto) Neut % (Auto) Lymph % (Auto) Lanier % (Auto) Eos % (Auto) Baso % (Auto) Absolute Neuts (auto) Absolute Lymphs (auto) Nucleated RBC % Sodium Potassium Chloride Carbon Dioxide Anion Gap BUN Creatinine Estim Creat Clear Calc Est GFR (MDRD) Af Amer Est GFR (MDRD) Non-Af BUN/Creatinine Ratio Glucose Calcium Blood Type O POSITIVE Antibody Screen NEGATIVE Crossmatch See Detail Radiography Diagnostic Testing: Clinical Impression(s) from Imaging Studies Transvaginal US 07/26/21 10:08 IMPRESSION: Suspect cervical mass, possibly cervical carcinoma, with endometrial hyperplasia. Clinical correlation is recommended. Electronically Signed: Dilan Solis MD at 11:54 EST , Discharge Plan Triage Chief Complaint: Vag Bleeding ED Provider: Umu Urbano Dx/Rx/DC Orders Clinical Impression: Abnormal vaginal bleeding, Cervical mass Instructions: ED Dysfunctional Uterine Bleeding Prescriptions: No Action lisinopril 5 mg tablet 5 mg PO QDAY Qty: 90 RF: 3 miconazole nitrate 2 % powder 1 applic TOPICAL BID Qty: 85 RF: 2 (DME) lancets [FreeStyle Lancets] 28 gauge misc See Rx Instructions .ROUTE .MEDSUPPLY Qty: 200 RF: 3 (DME) blood-glucose meter [FreeStyle Lite Meter] Kit See Rx Instructions .ROUTE .MEDSUPPLY Qty: 1 RF: 0 (DME) FreeStyle Lite Strips Strip See Rx Instructions .ROUTE .MEDSUPPLY Qty: 100 RF: 3 insulin lispro [Humalog KwikPen Insulin] 100 unit/mL insulin pen 14 unit SC TID RF: 0 Lantus Solostar U-100 Insulin 100 unit/mL (3 mL) insulin pen 65 unit SC QHS RF: 0 lamotrigine 100 mg tablet 100 mg PO DAILY RF: 0 Trulicity 1.5 mg/0.5 mL pen injector 1.5 mg SC QWEEK Qty: 2 RF: 1 Adult 50 Plus Probiotic 4 billion cell capsule 4,000 mmu cells PO DAILY RF: 0 ergocalciferol (vitamin D2) 25,000 unit capsule 25,000 unit capsule PO RF: 0 dextrose [Glucose Gel] 40 % gel 10 g PO Q15M PRNRF: 0 clonazepam 0.5 mg tablet 0.5 mg PO Q8H PRN PRN (Reason: panic attack(s)) Qty: 90 RF: 0 quetiapine 300 MG tablet extended release 24 hr 600 mg PO QHS RF: 0 clonazepam 0.5 MG tablet 0.5 mg PO TID Qty: 90 RF: 0 lamotrigine 100 MG tablet 100 mg PO DAILY Qty: 30 RF: 0 Quetiapine Fumarate [Seroquel Xr] 300 MG Tab.Sr.24h 600 mg PO QHS Qty: 60 RF: 0 atorvastatin 40 mg tablet 40 mg PO QDAY Qty: 90 RF: 3 (DME) blood sugar diagnostic [FreeStyle Lite Strips] strip See Dose Instructions .ROUTE .MEDSUPPLY Qty: 150 RF: 11 (DME) blood-glucose meter [FreeStyle Lite Meter] kit See Dose Instructions .ROUTE .MEDSUPPLY Qty: 1 RF: 0 Other Ambulatory Orders: Fast Pass: Oncology Referral [facility] (Routine) Facility: [facility] - Location: [facility] Ordered By: Dr. Umu Urbano Primary Care Provider: Shayna Malhotra Referrals: Ling Tsang MD [STAFF PHYSICIAN] - 1 Day for another exam (Call office in morning to schedule a same day appointment. Tell them you were seen in the ER and instructed by Dr. Tsang to do this to follow up on new bleeding cervical mass. ) Shayna Malhotra MD [Primary Care Provider] - Activity Restrictions/Additional Instructions: Return if you start to feel lightheaded or have low blood pressure. You may continue to have bleeding. Continue to wear pads for this. If you are bleeding more than a pad an hour for 2 hours in a row return to the emergency room. Call the medical practice manager tomorrow to schedule a same-day appointment. Let them know you were seen in the ER instructed to do so by the medical practice manager. Disposition Disposition: NonSkilled NH/Intermed Care Discharge Location: Other SNF not listed Discharge Date/Time: 07/26/21 14:15
[2021-07-26 11:28] VITALS: RESP 16
[2021-07-26 12:28] VITALS: BP 140/72; PULSE 98; RESP 23; O2SAT 99
--- NOTE | 2021-07-26 13:06 | ED.RN ---
THIS RN SPOKE WITH JUNE, NURSE AT [facility]. JUNE INFORMED THAT PT WILL BE RETURNING TO THE CARE CENTER. PT NEEDS TO FOLLOW UP WITH [facility] TOMORROW. JUNE INFORMED THAT SHE WILL NEED TO CALL OFFICE IN THE MORNING TO GET AN APPOINTMENT FOR FOLLOW UP [facility]. PT AWAITING RIDE BACK TO [facility].
--- NOTE | 2021-07-26 14:10 | ED.RN ---
THIS RN EDUCATED PT AND ASSISTED LIVING NURSE JUNE ON DISCHARGE INSTRUCTIONS. JUNE AND PT INFORMED TO MONITOR BLOOD PRESSURE AND WATCH FOR INCREASED BLEEDING. PT EDUCATED TO RETURN TO ED FOR WETTING A PAD FREQUENTLY OR FEELING LIGHTHEADED AND DIZZY. PT TO FOLLOW UP WITH DR. PERALTA TOMORROW. ASSISTED LIVING TO MAKE A AN APPOINTMENT FIRST THING TOMORROW MORNING. PT AND JUNE VERBALIZE UNDERSTANDING. PT IV D/C AND COVERED WITH 2X2 GAUZE AND PAPER TAPE.
== END 2021-07-26 14:15 | disposition intermediate care facility (04) ==
PROVIDERS: Emergency Provider Emergency Medicine; PCP Internal Medicine; Visit Provider Emergency Medicine
DX: N93.9 Abnormal uterine and vaginal bleeding, unspecified (principal); F31.9 Bipolar disorder, unspecified; R56.9 Unspecified convulsions; E10.9 Type 1 diabetes mellitus without complications; Z79.4 Long term (current) use of insulin; N88.9 Noninflammatory disorder of cervix uteri, unspecified; E78.5 Hyperlipidemia, unspecified; I89.0 Lymphedema, not elsewhere classified; E55.9 Vitamin D deficiency, unspecified; Z79.899 Other long term (current) drug therapy; Z87.891 Personal history of nicotine dependence
CPT/HCPCS: 36415; 76830; 80048; 85025; 86850; 86900; 86901; 86920; 86922; 96360; 99285; J7030; A4216

== ENCOUNTER 2021-08-07 14:01 | Outpatient (CLI) | payer MEDICARE, MEDICAID, SELFPAY ==
--- NOTE | 2021-08-07 14:56 | CT_ITS ---
STUDY: CT ABDOMEN AND PELVIS WITHOUT CONTRAST REASON FOR EXAM: Female, 70 years old. Cervical mass noted on ultrasound RADIATION DOSAGE (If Supplied By Facility): CTDIvol = ( 22.15 ) mGy, DLP = ( 1156.43 ) mGycm TECHNIQUE: Transaxial images were obtained from the dome of the diaphragm to the symphysis pubis without oral contrast, and without intravenous contrast. Sagittal and coronal images were reconstructed. Individualized dose optimization techniques were used for this CT. COMPARISON: Ultrasound from 07/26/2021. FINDINGS: The visualized lung bases are unremarkable. The visualized portions of the heart are within normal limits. There is decreased attenuation of the liver consistent with steatosis. There are multiple gallstones. Normal spleen. Normal pancreas. There is a 3.79 cm circumscribed, smooth, low attenuation left adrenal mass, consistent with an adrenal adenoma. ACR White Paper guidelines (Godoy-Parrish, et al. JACR 2017; 14(8):7614-4024) suggest no imaging follow-up is necessary. ACR White Paper guidelines (Godoy-Parrish, et al. JACR 2017; 14(8):1835-9017) suggest no imaging follow-up is necessary. Consider biochemical assays to determine functional status and exclude pheochromocytoma if biopsy/resection is planned. Normal right adrenal gland. Normal right kidney. Normal left kidney. Normal visualized stomach. Normal small intestine. Retained stool noted throughout the colon The appendix is visualized and appears normal. Appendix seen on coronal recon images 71-81 Normal abdominal aorta. Normal inferior vena cava. Normal retroperitoneum. Normal urinary bladder. Uterus is present, the endometrium cannot be accurately evaluated with CT. Previous ultrasound suggested a cervical mass, this is not appreciated on CT. MRI would be a much more sensitive way to evaluate the female pelvis Normal abdominal wall. There are diffuse degenerative changes of the visualized lumbar spine. CT/Abdomen/Pelvis without Cont IMPRESSION: Fatty liver, no discrete lesion 3.79 cm well-defined left adrenal lesion, likely adenoma Uterus is present, the endometrium and cervix cannot be accurately evaluated with CT. No free intraperitoneal fluid, air, or suspicious adenopathy Normal appendix visualized Degenerative bony changes Electronically Signed: Tavares Lopez MD at 16:51 EST ,
== END 2021-08-07 23:59 | disposition home or self-care (01) ==
LOC: CT 14:02
PROVIDERS: PCP Internal Medicine; Referring Provider Internal Medicine Medical Oncology; Visit Provider Internal Medicine Medical Oncology
DX: K76.0 Fatty (change of) liver, not elsewhere classified (principal); D35.02 Benign neoplasm of left adrenal gland
CPT/HCPCS: 74176

== ENCOUNTER 2021-08-11 10:14 | Outpatient (CLI) | payer MEDICARE, SELFPAY ==
--- NOTE | 2021-08-11 10:33 | RAD_ITS ---
STUDY: X-RAY CHEST REASON FOR EXAM: Female, 70 years old. ENDOMETRIAL CA TECHNIQUE: PA and lateral views of the chest. COMPARISON: 388 FINDINGS: The lungs are clear and expanded. There is no demonstrated pleural abnormality. Normal size heart. Normal mediastinum and easton. Normal visualized pulmonary arteries. Normal visualized aortic arch and descending thoracic aorta. Normal visualized thoracic spine. Normal visualized ribs, clavicles, and shoulders. There is no demonstrated abnormality of the visualized soft tissue structures of the upper abdomen. RAD/Chest PA and Lateral IMPRESSION: Normal x-ray examination of the chest. Electronically Signed: Dilan Solis MD at 13:00 EST ,
== END 2021-08-11 23:59 | disposition home or self-care (01) ==
LOC: RAD 10:17
PROVIDERS: PCP Internal Medicine; Referring Provider Internal Medicine Medical Oncology; Visit Provider Internal Medicine Medical Oncology
DX: C54.1 Malignant neoplasm of endometrium (principal)
CPT/HCPCS: 71046

== ENCOUNTER → 2021-09-10 | Outpatient (REF) | payer MEDICARE, MEDICAID, SELFPAY ==
[2021-09-11 08:57] LABS: Color, Urine Yellow (Yellow); Glucose, Dipstick Normal (Normal); Ketone-Dipstick Negative (Negative); Leukocyte Esterase-Dipstick 25 /ul (Negative); Nitrite-Dipstick Negative (Negative); Occult Blood-Urine 25 /ul (Negative); Protein-Dipstick Negative (Negative); Specific Gravity, Urine 1.005 (1.002-1.030); Urine Bilirubin Dipstick Negative (Negative); Urine Clarity Clear (Clear); Urine Urobilinogen Normal (Normal)
== END | disposition home or self-care (01) ==
LOC: OLS.SWAL 11:30
PROVIDERS: PCP Internal Medicine
DX: N39.0 Urinary tract infection, site not specified (principal)
CPT/HCPCS: 81002; 87086; 87088

== ENCOUNTER 2021-09-20 07:14 | Observation (INO) | payer MEDICARE, MEDICAID, SELFPAY ==
[2021-09-20] VITALS (9 sets, daily range): BP systolic 108–170; BP diastolic 52–93; PULSE 95–104; RESP 15–19; TEMP 36.5–37.2; O2SAT 95–98; BMI 52.5; BMI 49.6
--- NOTE | 2021-09-20 07:38 | EKG12_ITS ---
Test Reason : Blood Pressure : / mmHG Vent. Rate : 101 BPM Atrial Rate : 101 BPM P-R Int : 192 ms QRS Dur : 090 ms QT Int : 356 ms P-R-T Axes : 037 008 015 degrees QTc Int : 461 ms Sinus tachycardia Otherwise normal ECG Confirmed by MUSTAPHA LEAL, JOHNNY ([id number]), social media editor MADONNA UMANZOR ([id number]) on 09/23/2021 8:48:49 AM Referred By: DA Confirmed By:JOHNNY LUCIANO MD
--- NOTE | 2021-09-20 07:38 | RAD_ITS ---
STUDY: X-RAY CHEST REASON FOR EXAM: Female, 70 years old. chest pain TECHNIQUE: AP COMPARISON: 08/11/2021 FINDINGS: EKG leads project over the chest. The lungs are clear and expanded. There is no demonstrated pleural abnormality. Normal size heart. Normal mediastinum and easton. Normal visualized pulmonary arteries. Normal visualized aortic arch and descending thoracic aorta. Normal visualized thoracic spine. Normal visualized ribs, clavicles, and shoulders. There is no demonstrated abnormality of the visualized soft tissue structures of the upper abdomen. RAD/Chest 1 View (Portable) IMPRESSION: Nonacute portable x-ray examination of the chest. Electronically Signed: Nav Baker MD (Brooks) at 8:21 EDT ,
--- NOTE | 2021-09-20 07:44 | EDS_ITS ---
HPI History of Present Illness Chief Complaint: Shortness of Breath Narrative Narrative: 70-year-old female with recent history of endometrial adenocarcinoma status post his Hysterosalpingo-oophorectomy at [facility] 09/07/[address] Arnie Wade. Patient was diagnosed with this in July. She presents with complaint of not feeling right. She also complains of bilateral lower extremity edema. She states has had this in the past but it is worse over the last couple of days. She feels as if her stomach is a little bit bloated and she is short of breath. She denies any history of CHF. No history of DVT/PE. She is not having chest pain. She reports that her O2 saturations have been normal at assisted living. No fever, chills, cough. She has a history of recurrent UTIs but is not having urinary symptoms. No diarrhea or constipation. [facility] Medical History Bipolar 1 disorder history of broken heel left foot History of recurrent UTIs History of seizures Hyperlipidemia Type 1 diabetes mellitus Vitamin D deficiency Home Medications lisinopril 5 mg tablet 5 mg PO QDAY #90 tab 09/08/17 [Rx Last Taken Unknown] blood sugar diagnostic #150 ea 09/14/17 [Rx Last Taken Unknown] blood-glucose meter #1 ea 09/14/17 [Rx Last Taken Unknown] Quetiapine Fumarate [Seroquel Xr] 600 mg PO QHS #60 tab.sr.24h 02/28/19 [Rx Last Taken Unknown] lamotrigine 100 mg PO DAILY #30 tab 02/28/19 [Rx Last Taken Unknown] blood sugar diagnostic #100 ea 03/01/19 [Rx Last Taken Unknown] blood-glucose meter #1 ea 03/01/19 [Rx Last Taken Unknown] lancets 28 gauge #200 ea 03/01/19 [Rx Last Taken Unknown] miconazole nitrate 2 % topical powder 1 applic TOPICAL BID #85 g 03/01/19 [Rx Last Taken Unknown] dulaglutide 1.5 mg/0.5 mL subcutaneous pen injector 1.5 mg SC QWEEK #2 ml 03/21/20 [Rx Last Taken Unknown] insulin glargine 100 unit/mL (3 mL) subcutaneous pen 65 unit SC QHS ml 03/21/20 [History Last Taken Unknown] clonazepam 0.5 mg tablet 0.5 mg PO Q8H PRN PRN #90 tab 06/25/20 [Rx Last Taken Unknown] dextrose 40 % oral gel 10 g PO Q15M PRN 06/25/20 [History Last Taken Unknown] insulin lispro 100 unit/mL subcutaneous pen 14 unit SC TID ml 06/25/20 [History Last Taken Unknown] lactobacillus combination no.9 4 billion cell capsule 4,000 mmu cells PO DAILY 06/25/20 [History Last Taken Unknown] acetaminophen 325 mg tablet 325 mg PO ONCE PRN 07/30/21 [History Last Taken Unknown] aluminum-magnesium hydroxide 225 mg-200 mg/5 mL oral suspension 30 ml PO Q4H PRN PRN 07/30/21 [History Last Taken Unknown] guaifenesin 100 mg/5 mL oral liquid 200 mg PO Q4H PRN 07/30/21 [History Last Taken Unknown] triamcinolone acetonide 0.1 % dental paste 1 applic DENTAL BID 07/30/21 [History Last Taken Unknown] atorvastatin 40 mg PO QHS 09/20/21 [History Last Taken Unknown] ergocalciferol (vitamin D2) 50,000 unit PO QWEEK 09/20/21 [History Last Taken Unknown] Allergy/AdvReac Type Severity Reaction Status Date / Time ciprofloxacin [From Cipro] Allergy Anaphylaxis Verified 08/11/21 09:29 ciprofloxacin HCl Allergy Anaphylaxis Verified 08/11/21 09:29 [From Cipro] Iodinated Contrast Media Allergy Rash Verified 08/11/21 09:29 [Iodinated Contrast Media - IV Dye] paliperidone [From Invega] Allergy Rash Verified 08/11/21 09:29 Penicillins Allergy RASH AND Verified 08/11/21 09:29 ITCHING red dye Allergy Hives Verified 08/11/21 09:29 Sulfa (Sulfonamide Allergy RASH AND Verified 08/11/21 09:29 Antibiotics) ITCHING metformin AdvReac Nausea/Vom/ Verified 08/11/21 09:29 Diarrhea shellfish derived AdvReac Nausea/Vom/ Verified 08/11/21 09:29 Diarrhea Family History Mother Diabetes Hypertension Heart disease Thyroid disorder Father CVA (cerebral vascular accident) Diabetes Brother Parkinson disease Thyroid disorder Lupus Alcoholism Blood clots in brain Grandfather Heart disease Asthma Social History Smoking Status: Former smoker Tobacco: How many years used: 45 how long ago did patient quit smokin11/2016 substance use type: does not use what type of physical activity do you participate in: none ROS ROS ED Constitutional Constitutional ED: Denies chills or fever(s) Eyes Eyes: Denies blurry vision or diplopia ENT ENT ED: Denies rhinorrhea or sore throat Cardiovascular Cardiovascular: Denies chest pain or palpitations Respiratory/Chest Respiratory/Chest: Reports dyspnea Gastrointestinal Gastrointestinal: Reports abdominal pain; Denies diarrhea, nausea or vomiting Genitourinary Genitourinary ED: Denies dysuria, hematuria or urinary frequency Musculoskeletal Musculoskeletal: Denies back pain or neck pain Integumentary Reports other Details: Lower extremity edema ; Denies rash Neurologic Neurologic: Denies headache(s) or paresthesias Psychiatric Psychiatric: Denies anxiety or depression EXAM Physical Exam Const Vital Signs: 09/20/21 07:17 09/20/21 07:25 09/20/21 08:14 Temperature 98.2 F Temperature Source Oral Pulse Rate 100 Respiratory Rate 17 Respiratory Effort Non-Labored Short of Breath Respiratory Depth Normal Respiratory Pattern Normal Blood Pressure 170/93 H Blood Pressure Mean 118 Pulse Ox 98 98 Oxygen Delivery Method Room Air Room Air Room Air 09/20/21 09:11 09/20/21 11:00 Temperature 98.2 F 98.2 F Temperature Source Oral Oral Pulse Rate 102 H 95 Respiratory Rate 18 19 H Respiratory Effort Respiratory Depth Respiratory Pattern Blood Pressure 170/70 H 142/69 H Blood Pressure Mean 103 93 Pulse Ox 95 95 Oxygen Delivery Method Room Air Room Air Positive obese General Appearance ED: NAD; Negative for pallor Nutritional Appearance: obese HEENT Reports moist mucous membranes atraumatic Eyes PERRL and EOMs intact bilaterally Resp normal respiratory effort and clear to auscultation bilaterally Auscultation: Negative for rales, rhonchi or wheezes Cardio regular rate and regular rhythm GI non-tender and non-distended Palpation: soft Extremity General Extremety ED: Yes edema and tenderness General Extremity: edema Neuro oriented x3, CN's II-XII intact bilaterally and no sensory deficits noted Sensorium / Orientation: alert Motor Exam: strength 5/5 throughout Psych mental status grossly normal Thought Process: normal thought process Skin General Skin Exam: Negative for jaundice or pallor Rashes: no rashes MDM MDM MDM Narrative Medical decision making narrative: Patient presenting with leg swelling and leg pain as well as shortness of breath. Recent history of surgery for endometrial carcinoma a few weeks ago. This was removed. Patient does not specifically have a history of DVT/PE but does have risk factors including recent hospitalization, morbid obesity, history of cancer, recent surgery. I discussed this with the patient and she is hesitant to get a CTA because she is allergic to contrast dye. We discussed a D-dimer and she was amenable to this. She knows that if it is elevated she will have to get a CTA. In the meantime her CBC and BMP are normal. High-sensitivity troponin is less than 3x2. BNP is normal. Chest x-ray my interpretation shows no acute cardiopulmonary process and radiologist agree. EKG shows a sinus tachycardia with a ventricular rate of 101 bpm without signs of heart strain. D-dimer came back elevated at 2.47 and patient was medicated with 25 mg of Benadryl and Solu-Medrol 1.5 mg. She was taken to CTA about an hour later. She was monitored and had no signs of allergic reaction. CTA shows bilateral pulmonary emboli without any evidence of heart strain. Her labs would support this. She will need to be started on Eliquis. She states at this point that she does not think she can go home because she cannot care for herself and she does not think she can walk. I discussed this with the hospitalist. She is admitted and transported in stable condition. Impression: 1. Failure to thrive 2. Shortness of breath 3. Bilateral pulmonary emboli 4. Lower extremity edema bilaterally Lab Data Attestation: I reviewed the patient's lab results. Labs: Laboratory Results - last 24 hr 09/20/21 09/20/21 09/20/21 08:26 08:26 08:26 WBC 5.0 RBC 4.50 Hgb 12.8 Hct 39.4 MCV 87.6 MCH 28.4 MCHC 32.5 RDW Std Deviation 47.4 H RDW Coeff of Bebo 14.7 H Plt Count 161 MPV 9.8 Immature Gran % (Auto) 0.400 Neut % (Auto) 67.6 Lymph % (Auto) 19.7 Norman % (Auto) 9.1 Eos % (Auto) 2.6 Baso % (Auto) 0.6 Absolute Neuts (auto) 3.4 Absolute Lymphs (auto) 0.99 Nucleated RBC % 0 D-Dimer Quant (PE/DVT) 2.47 H* Sodium 138 Potassium 4.4 Chloride 109 H Carbon Dioxide 24.0 Anion Gap 5 BUN 12 Creatinine 0.86 Estim Creat Clear Calc 56.34 Est GFR (MDRD) Af Amer 85 Est GFR (MDRD) Non-Af 70 BUN/Creatinine Ratio 14.0 Glucose 211 H Calcium 9.4 Troponin I High Sens B-Natriuretic Peptide 09/20/21 09/20/21 09/20/21 08:26 08:26 10:49 WBC RBC Hgb Hct MCV MCH MCHC RDW Std Deviation RDW Coeff of Bebo Plt Count MPV Immature Gran % (Auto) Neut % (Auto) Lymph % (Auto) Norman % (Auto) Eos % (Auto) Baso % (Auto) Absolute Neuts (auto) Absolute Lymphs (auto) Nucleated RBC % D-Dimer Quant (PE/DVT) Sodium Potassium Chloride Carbon Dioxide Anion Gap BUN Creatinine Estim Creat Clear Calc Est GFR (MDRD) Af Amer Est GFR (MDRD) Non-Af BUN/Creatinine Ratio Glucose Calcium Troponin I High Sens < 3 L Cancelled B-Natriuretic Peptide 43.0 09/20/21 11:18 WBC RBC Hgb Hct MCV MCH MCHC RDW Std Deviation RDW Coeff of Bebo Plt Count MPV Immature Gran % (Auto) Neut % (Auto) Lymph % (Auto) Norman % (Auto) Eos % (Auto) Baso % (Auto) Absolute Neuts (auto) Absolute Lymphs (auto) Nucleated RBC % D-Dimer Quant (PE/DVT) Sodium Potassium Chloride Carbon Dioxide Anion Gap BUN Creatinine Estim Creat Clear Calc Est GFR (MDRD) Af Amer Est GFR (MDRD) Non-Af BUN/Creatinine Ratio Glucose Calcium Troponin I High Sens < 3 L B-Natriuretic Peptide Radiography Diagnostic Testing: Clinical Impression(s) from Imaging Studies Chest X-Ray 09/20/21 07:38 IMPRESSION: Nonacute portable x-ray examination of the chest. Electronically Signed: Nav Baker MD (Brooks) at 8:21 EDT Reading Location ID and State: [facility] / [place] , Service support , Chest CTA 09/20/21 09:23 IMPRESSION: 1. Low volume acute pulmonary embolism. 2. Severe coronary artery disease. 3. Cirrhosis. Electronically Signed: Quynh Lyon MD at 11:25 EDT Reading Location ID and State: [facility] / [place] Tel , Service support , Discharge Plan Triage Chief Complaint: Shortness of Breath ED Provider: Tyler Crespo Dx/Rx/DC Orders Prescriptions: No Action lisinopril 5 mg tablet 5 mg PO QDAY Qty: 90 RF: 3 miconazole nitrate 2 % powder 1 applic TOPICAL BID Qty: 85 RF: 2 (DME) lancets [FreeStyle Lancets] 28 gauge misc See Rx Instructions .ROUTE .MEDSUPPLY Qty: 200 RF: 3 (DME) blood-glucose meter [FreeStyle Lite Meter] Kit See Rx Instructions .ROUTE .MEDSUPPLY Qty: 1 RF: 0 (DME) FreeStyle Lite Strips Strip See Rx Instructions .ROUTE .MEDSUPPLY Qty: 100 RF: 3 insulin lispro [Humalog KwikPen Insulin] 100 unit/mL insulin pen 14 unit SC TID RF: 0 Lantus Solostar U-100 Insulin 100 unit/mL (3 mL) insulin pen 65 unit SC QHS RF: 0 Trulicity 1.5 mg/0.5 mL pen injector 1.5 mg SC QWEEK Qty: 2 RF: 1 Adult 50 Plus Probiotic 4 billion cell capsule 4,000 mmu cells PO DAILY RF: 0 dextrose [Glucose Gel] 40 % gel 10 g PO Q15M PRN (Reason: BG<70 and unable to swallow) RF: 0 clonazepam 0.5 mg tablet 0.5 mg PO Q8H PRN PRN (Reason: panic attack(s)) Qty: 90 RF: 0 guaifenesin 100 mg/5 mL liquid 200 mg PO Q4H PRN (Reason: cough) RF: 0 acetaminophen [Tylenol] 325 mg tablet 325 mg PO ONCE PRN (Reason: Pain) RF: 0 triamcinolone acetonide 0.1 % paste 1 applic dental BID RF: 0 aluminum-magnesium hydroxide 225-200 mg/5 mL suspension 30 ml PO Q4H PRN PRN (Reason: GI Distress) RF: 0 lamotrigine 100 MG tablet 100 mg PO DAILY Qty: 30 RF: 0 Quetiapine Fumarate [Seroquel Xr] 300 MG Tab.Sr.24h 600 mg PO QHS Qty: 60 RF: 0 ergocalciferol (vitamin D2) 1,250 mcg (50,000 unit) Capsule 50,000 unit PO QWEEK RF: 0 atorvastatin 40 mg tablet 40 mg PO QHS RF: 0 (DME) blood sugar diagnostic [FreeStyle Lite Strips] strip See Dose Instructions .ROUTE .MEDSUPPLY Qty: 150 RF: 11 (DME) blood-glucose meter [FreeStyle Lite Meter] kit See Dose Instructions .ROUTE .MEDSUPPLY Qty: 1 RF: 0 Primary Care Provider: Shayna Malhorta
[2021-09-20 08:35] LABS: Absolute Lymphocyte Count 0.99 X10^3/uL (0.83-4.51); Absolute Neutrophil Count 3.4 X10^3/uL (2.0-7.7); Basophil# 0.03 X10^3/uL; Basophil% 0.6 % (0-1); Eosinophil# 0.13 X10^3/uL; Eosinophils% 2.6 % (0-5); Hematocrit 39.4 % (37-47); Hemoglobin 12.8 g/dL (12.0-15.0); Lymphocyte # 0.99 X10^3/ul (0.83-4.51); Lymphocyte % 19.7 % (19-41); Mean Corp Hgb Conc 32.5 g/dL (32-36); Mean Corpuscular Hgb 28.4 pg (27.0-32.0); Mean Corpuscular Volume 87.6 fL (81-99); Mean Platelet Vol. 9.8 fl (6.2-12.0); Monocyte# 0.46 X10^3/uL; Monocyte% 9.1 % (0-10); NRBC Flagged by Analyzer 0 % (0-5); Neutrophil % 67.6 % (47-70); Platelet Count 161 K/mm3 (150-450); RBC Distribution Width CV 14.7 % (11.6-14.6); RBC Distribution Width SD 47.4 fl (35.1-43.9)
[2021-09-20 08:46] LABS: Anion Gap 5 (5-15); BUN 12 mg/dL (7-18); Calcium,Total 9.4 mg/dL (8.5-10.1); Chloride 109 mmol/L (98-107); Creatinine, Serum 0.86 mg/dL (0.55-1.02); EST Glomerular Filtration Rate 70 mL/min (>60); Est Glom Filt Rate - Afr Amer 85 mL/min (>60); Estimated Creatinine Clearance 56.34 ml/min; Glucose 211 mg/dL (74-106); Potassium 4.4 mmol/L (3.5-5.1); Sodium Level 138 mmol/L (136-145)
[2021-09-20 08:51] LABS: Troponin-I HS (w/2H Reflex) < 3 pg/mL (3.0-54.0)
[2021-09-20 08:54] LABS: D-Dimer Quantitative (DVT/PE) 2.47 FEU/ug/m (0.27-0.49)
[2021-09-20] MEDS: DiphenhydrAMINE 50 MG/ML Syringe 25 MG IV (09:18)
[2021-09-20] MEDS: MethylPREDNISolone 125 MG/2 ML Vial IV (09:19)
--- NOTE | 2021-09-20 09:23 | CT_ITS ---
ACR Level 3 findings have been noted. An addendum which confirms receipt of the report will follow. STUDY: CTA CHEST REASON FOR EXAM: Female, 70 years old. Dyspnea RADIATION DOSAGE (If Supplied By Facility): CTDIvol = ( 16.13 ) mGy, DLP = ( 521.17 ) mGycm TECHNIQUE: The examination was performed with the intravenous administration of IV 100mL Isovue-370. Post-processing of the angiographic images was performed, with multiplanar reformation and 3D reconstruction. Individualized dose optimization techniques were used for this CT. COMPARISON: None. FINDINGS: There is low volume acute pulmonary embolism bilaterally in the lower lobe proximal segmental branches, with occlusive index of less than 10%. Pulmonary artery and right heart are normal without strain. Aorta is normal. Coronary arteries are severely diseased with high volume of calcified plaque. Lungs are mildly emphysematous with minimal scattered ground glass opacities, probably atelectasis, versus early viral pneumonia. There is no pulmonary edema pleural effusions. There is a 3.5 cm left adrenal adenoma. Liver is cirrhotic with splenomegaly. CT/CTA Chest W/WO Contrast IMPRESSION: 1. Low volume acute pulmonary embolism. 2. Severe coronary artery disease. 3. Cirrhosis. Electronically Signed: Quynh Lyon MD at 11:25 EDT ,
[2021-09-20 10:30] LABS: Reflex Troponin-HS? (from REC) Y
[2021-09-20 11:42] LABS: Troponin-I HS < 3 pg/mL (3.0-54.0)
[2021-09-20] MEDS: APIXABAN 5 MG TABLET 10 MG PO ×2 (11:56→22:14)
--- NOTE | 2021-09-20 12:06 | PCM.HP.STD ---
HPI - General General Date of Admission: 09/20/21 Date of Service: 09/20/21 Chief Complaint: Weakness HPI Narrative RICK MILLER, is a 70 F who presents with weakness. The fourth of this month, patient underwent a total abdominal salpingo-oophorectomy and hysterectomy. Patient was discharged the following day and is back at her independent living. There she just felt unwell. Presented to the emergency room and they did a work-up. D-dimer was elevated 2.47. CAT scan showed low volume acute pulmonary embolism and severe coronary artery disease. Plan from the emergency room was to discharge the patient back with anticoagulation but patient stated that she was too weak to even get up. Patient felt that she was dying. I asked her why she felt she was dying she just felt that things were just falling apart for her. I clarified and asked if she was suicidal when she denied. [facility] Medical History Bipolar 1 disorder history of broken heel left foot History of recurrent UTIs History of seizures Hyperlipidemia Type 1 diabetes mellitus Vitamin D deficiency Home Medications lisinopril 5 mg tablet 5 mg PO QDAY #90 tab 09/08/17 [Rx Last Taken Unknown] blood sugar diagnostic #150 ea 09/14/17 [Rx Last Taken Unknown] blood-glucose meter #1 ea 09/14/17 [Rx Last Taken Unknown] Quetiapine Fumarate [Seroquel Xr] 600 mg PO QHS #60 tab.sr.24h 02/28/19 [Rx Last Taken Unknown] lamotrigine 100 mg PO DAILY #30 tab 02/28/19 [Rx Last Taken Unknown] blood sugar diagnostic #100 ea 03/01/19 [Rx Last Taken Unknown] blood-glucose meter #1 ea 03/01/19 [Rx Last Taken Unknown] lancets 28 gauge #200 ea 03/01/19 [Rx Last Taken Unknown] miconazole nitrate 2 % topical powder 1 applic TOPICAL BID #85 g 03/01/19 [Rx Last Taken Unknown] dulaglutide 1.5 mg/0.5 mL subcutaneous pen injector 1.5 mg SC QWEEK #2 ml 03/21/20 [Rx Last Taken Unknown] insulin glargine 100 unit/mL (3 mL) subcutaneous pen 65 unit SC QHS ml 03/21/20 [History Last Taken Unknown] clonazepam 0.5 mg tablet 0.5 mg PO Q8H PRN PRN #90 tab 06/25/20 [Rx Last Taken Unknown] dextrose 40 % oral gel 10 g PO Q15M PRN 06/25/20 [History Last Taken Unknown] insulin lispro 100 unit/mL subcutaneous pen 14 unit SC TID ml 06/25/20 [History Last Taken Unknown] lactobacillus combination no.9 4 billion cell capsule 4,000 mmu cells PO DAILY 06/25/20 [History Last Taken Unknown] acetaminophen 325 mg tablet 325 mg PO ONCE PRN 07/30/21 [History Last Taken Unknown] aluminum-magnesium hydroxide 225 mg-200 mg/5 mL oral suspension 30 ml PO Q4H PRN PRN 07/30/21 [History Last Taken Unknown] guaifenesin 100 mg/5 mL oral liquid 200 mg PO Q4H PRN 07/30/21 [History Last Taken Unknown] triamcinolone acetonide 0.1 % dental paste 1 applic DENTAL BID 07/30/21 [History Last Taken Unknown] atorvastatin 40 mg PO QHS 09/20/21 [History Last Taken Unknown] ergocalciferol (vitamin D2) 50,000 unit PO QWEEK 09/20/21 [History Last Taken Unknown] Allergy/AdvReac Type Severity Reaction Status Date / Time ciprofloxacin [From Cipro] Allergy Anaphylaxis Verified 08/11/21 09:29 ciprofloxacin HCl Allergy Anaphylaxis Verified 08/11/21 09:29 [From Cipro] Iodinated Contrast Media Allergy Rash Verified 08/11/21 09:29 [Iodinated Contrast Media - IV Dye] paliperidone [From Invega] Allergy Rash Verified 08/11/21 09:29 Penicillins Allergy RASH AND Verified 08/11/21 09:29 ITCHING red dye Allergy Hives Verified 08/11/21 09:29 Sulfa (Sulfonamide Allergy RASH AND Verified 08/11/21 09:29 Antibiotics) ITCHING metformin AdvReac Nausea/Vom/ Verified 08/11/21 09:29 Diarrhea shellfish derived AdvReac Nausea/Vom/ Verified 08/11/21 09:29 Diarrhea Family History (Updated 09/20/21 @ 12:[address] Alok Abdul, DO) Mother Diabetes Hypertension Heart disease Thyroid disorder Father CVA (cerebral vascular accident) Diabetes Brother Parkinson disease Thyroid disorder Lupus Alcoholism Blood clots in brain Grandfather Heart disease Asthma Social History Smoking Status: Former smoker Tobacco: How many years used: 45 how long ago did patient quit smokin11/2016 substance use type: does not use what type of physical activity do you participate in: none ROS ROS Narrative Denies any fever or chills. Does complain of lower extremity edema particular in her feet. No chest pain. No chest palpitations. All review of systems were negative except as mentioned above in the history of present illness and the other review of systems. Vital Signs Vital Signs Vital Signs: 09/20/21 07:17 09/20/21 07:25 09/20/21 08:14 Temperature 36.8 C Temperature Source Oral Pulse Rate 100 Respiratory Rate 17 Respiratory Effort Non-Labored Short of Breath Respiratory Depth Normal Respiratory Pattern Normal Blood Pressure 170/93 H Blood Pressure Mean 118 Pulse Ox 98 98 Oxygen Delivery Method Room Air Room Air Room Air 09/20/21 09:11 09/20/21 11:00 09/20/21 11:45 Temperature 36.8 C 36.8 C 36.8 C Temperature Source Oral Oral Oral Pulse Rate 102 H 95 102 H Respiratory Rate 18 19 H 15 Respiratory Effort Respiratory Depth Respiratory Pattern Blood Pressure 170/70 H 142/69 H 165/81 H Blood Pressure Mean 103 93 109 Pulse Ox 95 95 95 Oxygen Delivery Method Room Air Room Air Room Air Weight Weight: 143.3 kg Body Mass Index (BMI) 52.5 Physical Exam Const alert General Appearance: cooperative HEENT normocephalic, head/scalp atraumatic, hearing grossly normal bilaterally and moist oral mucous membranes Eyes PERRL and EOMs intact bilaterally Resp normal respiratory effort, no retractions, no use of accessory muscles and clear to auscultation bilaterally Cardio regular rate, regular rhythm, S1 normal heart sound and S2 normal heart sound GI normal to inspection, nondistended, normoactive bowel sounds, soft to palpation, non-tender and non-distended Extremity Extremity Narrative: Lower extremity edema but nonpitting. Skin no rashes or lesions noted Neuro Sensorium / Orientation: awake and alert Results Lab / Micro Data Attestation: I reviewed the patient's lab results. Result Diagrams: 09/20/21 08:26 09/20/21 08:26 Labs: Laboratory Results - last 24 hr 09/20/21 08:26: WBC 5.0, RBC 4.50, Hgb 12.8, Hct 39.4, MCV 87.6, MCH 28.4, MCHC 32.5, RDW Std Deviation 47.4 H, RDW Coeff of Bebo 14.7 H, Plt Count 161, MPV 9.8, Immature Gran % (Auto) 0.400, Neut % (Auto) 67.6, Lymph % (Auto) 19.7, Bertie % (Auto) 9.1, Eos % (Auto) 2.6, Baso % (Auto) 0.6, Absolute Neuts (auto) 3.4, Absolute Lymphs (auto) 0.99, Nucleated RBC % 0 09/20/21 08:26: D-Dimer Quant (PE/DVT) 2.47 H* 09/20/21 08:26: Sodium 138, Potassium 4.4, Chloride 109 H, Carbon Dioxide 24.0, Anion Gap 5, BUN 12, Creatinine 0.86, Estim Creat Clear Calc 56.34, Est GFR (MDRD) Af Amer 85, Est GFR (MDRD) Non-Af 70, BUN/Creatinine Ratio 14.0, Glucose 211 H, Calcium 9.4 09/20/21 08:26: B-Natriuretic Peptide 43.0 09/20/21 08:26: Troponin I High Sens < 3 L 09/20/21 10:49: Troponin I High Sens Cancelled 09/20/21 11:18: Troponin I High Sens < 3 L EKG Initial EKG: Attestation: I personally reviewed and interpreted this EKG as follows: Prior EKG tracings: available for review EKG Rhythm Intrepretation: Sinus Rhythm Radiology Impression Chest X-Ray 09/20/21 07:38 IMPRESSION: Nonacute portable x-ray examination of the chest. Electronically Signed: Nav Baker MD (Brooks) at 8:21 EDT , Chest CTA 09/20/21 09:23 IMPRESSION: 1. Low volume acute pulmonary embolism. 2. Severe coronary artery disease. 3. Cirrhosis. Electronically Signed: Quynh Lyon MD at 11:25 EDT , ADDENDUM: 09/20/21 1158 IMPRESSION: 1. Low volume acute pulmonary embolism. 2. Severe coronary artery disease. 3. Cirrhosis. N.B. : Tyler Crespo DO, , confirmed on 09/20/2021 11:51:52 (ET) that the healthcare facility has received the radiology report. Electronically Signed: Quynh Lyon MD at 11:25 EDT , Assessment & Plan Assessment/Plan (1) Pulmonary embolism: QUALIFIERS: Pulmonary embolism type: multiple subsegmental (without acute cor pulmonale) Qualified Code(s): I26.94 - Multiple subsegmental pulmonary emboli without acute cor pulmonale (2) Debility: PLAN: 1. Pulmonary embolism No to be bilateral but patient is currently hemodynamically stable. Patient will be started on apixaban. No need for additional work-up at this time. Patient's troponin series were negative so we will not be pursuing with any additional work-up at this time. Patient has reported worsening lower extremity edema but given that management would not change at this time I do not feel is necessary to check lower extremity ultrasounds. 2. Debility likely multifactorial to the patient's recent hysterectomy, PEs but also her morbid obesity and other medical comorbidities. Explained to patient that this is the primary reason that she is being admitted to the hospital and at this point time will be under observation status. Did inform her that it may lead to higher co-pays for her. She states that it should not be an issue. PT OT evaluate and treat and I told the patient that that is very important that she does work with physical therapy. I am concerned for amotivation on the patient's behalf. 3. Diabetes mellitus type 2 Continue with glargine, prandial insulin and Trulicity sliding-scale insulin 4. Cervical cancer Status post KANDACE SBO on September 07 Follow-up with gynecology as outpatient 5. Chronic conditions: Complicates care and recovery Seizure disorder: Remote. Bipolar disorder: Stable. On Seroquel Morbid obesity: Would benefit from weight loss strategy. I would be very concerned about the patient's motivation regards to proceeding with such measures. Hyperlipidemia: Continue atorvastatin 6. VTE prophylaxis: Patient is already anticoagulated so not indicated 7. Disposition: Pending therapy evaluation. Suspect patient will require [facility] facility. Case management to assist. Charges/Coding Visit Charges OBSV E&M: 90871 Initial observation care L2
[2021-09-20] MEDS: lamoTRIgine 100 MG Tablet PO (13:25)
[2021-09-20] MEDS: Lisinopril 5 MG Tablet PO (13:25)
[2021-09-20 16:25] LABS: Bedside Glucose 355 mg/dL (74-106)
[2021-09-20] MEDS: Insulin Lispro 100 UNIT/ML INSULN.PEN SC (17:28)
[2021-09-20] MEDS: Insulin Lispro 100 UNIT/ML INSULN.PEN 14 UNIT SC (17:28)
[2021-09-20] MEDS: Insulin Glargine-YFGN 100 UNIT/ML Pen 65 UNIT SC (22:14)
[2021-09-20] MEDS: Atorvastatin Calcium 40 MG Tablet PO (22:15)
[2021-09-20] MEDS: QUEtiapine 100 MG Tablet 300 MG PO (22:16)
[2021-09-20 22:25] LABS: Bedside Glucose 288 mg/dL (74-106)
[2021-09-21 02:00] VITALS: BP 112/66; PULSE 88; RESP 18; TEMP 36.9; O2SAT 96
[2021-09-21 06:46] LABS: Bedside Glucose 219 mg/dL (74-106)
--- NOTE | 2021-09-21 07:39 | PCM.PN.HOSP ---
Subjective Subjective Patient has history of recent total hysterectomy with bilateral salpingo-oophorectomy on September 07 by SUPERVISOR PLEATING. She was found to have endometrial carcinoma. Patient has been laying in bed recently. Bilateral lower extremity swelling. Denies first-degree family history of genetic history of PE/DVT. Her brother had DVT in the leg but was due to ankle fracture Objective Data Objective Data Vital Signs: Vital Signs Temp Pulse Resp BP Pulse Ox 98.4 F 88 18 112/66 96 09/21/21 02:00 09/21/21 02:00 09/21/21 02:00 09/21/21 02:00 09/21/21 02:00 Oxygen Delivery Method Room Air Weight: 302 lb 14.642 oz Body Mass Index (BMI) 49.6 Lab / Micro Data Result Diagrams: 09/20/21 08:26 09/20/21 08:26 Labs: Laboratory Results - last 24 hr 09/20/21 08:26: WBC 5.0, RBC 4.50, Hgb 12.8, Hct 39.4, MCV 87.6, MCH 28.4, MCHC 32.5, RDW Std Deviation 47.4 H, RDW Coeff of Bebo 14.7 H, Plt Count 161, MPV 9.8, Immature Gran % (Auto) 0.400, Neut % (Auto) 67.6, Lymph % (Auto) 19.7, Lee % (Auto) 9.1, Eos % (Auto) 2.6, Baso % (Auto) 0.6, Absolute Neuts (auto) 3.4, Absolute Lymphs (auto) 0.99, Nucleated RBC % 0 09/20/21 08:26: D-Dimer Quant (PE/DVT) 2.47 H* 09/20/21 08:26: Sodium 138, Potassium 4.4, Chloride 109 H, Carbon Dioxide 24.0, Anion Gap 5, BUN 12, Creatinine 0.86, Estim Creat Clear Calc 56.34, Est GFR (MDRD) Af Amer 85, Est GFR (MDRD) Non-Af 70, BUN/Creatinine Ratio 14.0, Glucose 211 H, Calcium 9.4 09/20/21 08:26: B-Natriuretic Peptide 43.0 09/20/21 08:26: Troponin I High Sens < 3 L 09/20/21 10:49: Troponin I High Sens Cancelled 09/20/21 11:18: Troponin I High Sens < 3 L 09/20/21 16:00: POC Glucose 355 H 09/20/21 22:13: POC Glucose 288 H 09/21/21 06:09: POC Glucose 219 H Radiography Diagnostic Testing: Radiology Impression Chest X-Ray 09/20/21 07:38 IMPRESSION: Nonacute portable x-ray examination of the chest. Electronically Signed: Nav Baker MD (Brooks) at 8:21 EDT , Chest CTA 09/20/21 09:23 IMPRESSION: 1. Low volume acute pulmonary embolism. 2. Severe coronary artery disease. 3. Cirrhosis. Electronically Signed: Quynh Loyn MD at 11:25 EDT , ADDENDUM: 09/20/21 1158 IMPRESSION: 1. Low volume acute pulmonary embolism. 2. Severe coronary artery disease. 3. Cirrhosis. N.B. : Tyler Crespo DO, , confirmed on 09/20/2021 11:51:52 (ET) that the healthcare facility has received the radiology report. Electronically Signed: Quynh Lyon MD at 11:25 EDT , Physical Exam Narrative General: Alert, Oriented x3, Cooperative HEENT: Atraumatic, PERRLA, EOMI, Normocephalic Oral: No Gingival or Mucosal Lesions/ Ulcerations Neck: Supple, No JVD, Negative Carotid Bruits Lungs: Air entry diminished in bilateral lung bases. No crepitation/rhonchi Cardiovascular: Regular rate, Regular Rhythm, Normal S1, Normal S2, No murmurs Abdomen: Scar rg of laparoscopic hysterectomy. Bowel Sounds Present, Soft, Non Tender, Non-Distended : No renal angle tenderness. No suprapubic tenderness. Extremities: Bilateral lower extremity nonpitting edema, Capillary Refill Less than 3 Seconds Skin: No rashes, No breakdown Musculoskeletal: No Tenderness to Palpation of Joints or Extremities, muscle strength 4/5 at major joints Neurological: Cranial nerves II-XII grossly intact, DTR 2+/4 and Symmetrical Psych/Mental Status: Normal Affect, Appropriate Assessment & Plan Assessment/Plan (1) Pulmonary embolism: QUALIFIERS: Pulmonary embolism type: multiple subsegmental (without acute cor pulmonale) Qualified Code(s): I26.94 - Multiple subsegmental pulmonary emboli without acute cor pulmonale (2) Debility: PLAN: 1. Pulmonary embolism, most probably due to recent abdominal hysterectomy with bilateral salpingo-oophorectomy on September 07, 2021 in [facility]. Chest CT reported low volume acute multiple subsegmental pulmonary embolism without acute cor pulmonale. Patient is not in hypotension. On Eliquis. Continue PT and OT. Lower extremity ultrasound will be futile as management is not going to change. No to be bilateral but patient is currently hemodynamically stable. Recommend 6 months of anticoagulation. 2. Debility likely multifactorial to the patient's recent hysterectomy, PEs but also her morbid obesity and other medical comorbidities. Explained to patient that this is the primary reason that she is being admitted to the hospital and at this point time will be under observation status. Did inform her that it may lead to higher co-pays for her. She states that it should not be an issue. PT OT evaluate and treat and I told the patient that that is very important that she does work with physical therapy. I am concerned for amotivation on the patient's behalf. 3. Diabetes mellitus type 2 Continue with glargine, prandial insulin and Trulicity sliding-scale insulin 4. Endometrial cancer Status post KANDACE SBO on September 07. Follow-up SUPERVISOR PLEATING is not 5. Chronic seizure disorder, exact etiology and collapse unclear, bipolar disorder, morbid obesity and dyslipidemia: Multiple comorbidities complicates the present care and expect difficult and delay recovery. Continue atorvastatin. On Seroquel. Weight loss advised. Grinder Hardboard consult. 6. VTE prophylaxis: Patient is already anticoagulated so not indicated 7. Disposition: Discussed with the vocational case manager. Assisted living with home health care. Charges/Coding Visit Charges Inpatient E&M: 25495 Subs Hosp L2
[2021-09-21] MEDS: QUEtiapine 100 MG Tablet 300 MG PO ×2 (07:54→22:01)
[2021-09-21] MEDS: APIXABAN 5 MG TABLET 10 MG PO ×2 (07:54→22:01)
[2021-09-21] MEDS: Insulin Lispro 100 UNIT/ML INSULN.PEN 14 UNIT SC ×3 (07:55→17:00)
[2021-09-21] MEDS: Ergocalciferol 1.25 MG (50, 000 UNIT) Capsule PO (07:55)
[2021-09-21] MEDS: Insulin Lispro 100 UNIT/ML INSULN.PEN SC ×3 (07:56→17:00)
[2021-09-21] MEDS: Lisinopril 5 MG Tablet PO (08:03)
[2021-09-21] MEDS: lamoTRIgine 100 MG Tablet PO (11:55)
[2021-09-21 12:05] LABS: Bedside Glucose 181 mg/dL (74-106)
--- NOTE | 2021-09-21 12:05 | CASEMGMT ---
Social Work Note SW spoke with PT/OT and recommendation is for pt to return to [facility] with [facility] for PT/OT. SW in to speak with pt. SW introduced self and role at [facility]. Pt is alert and orientated x3. Pt confirms that she came from [facility] and has been there for less than 2 years. Pt states she has her own apartment and staff does the laundry and cleaning. Pt states that she is able to walk by herself and she doesn't use a walker or cane. Transportation: Marty Molina provides transportation to doctor appointments. Mental Health Hx: Pt states that she has Anxiety, Depression and Panic Attacks. Pt states that she takes Clonazepam and it is prescribed through Dr[facility] Diallo at [facility]. Pt states that she see's Dr. Diallo for Psychiatry and the last time she saw her was on July 2021. Pt states she is seeing her again in 6 months. Pt denied receiving any Counseling or Case Management services through [facility]. Pt states that she was hospitalized in a [facility]iatric Facility called [facility] in 2000 when she was going through her Divorce. Pt denied any other psych Hospitalizations. SW reviewed chart and noticed that pt stated she thought she was dying. SW asked pt about this comment. Pt states that she felt like she was dying because she couldn't breath and she was having a panic attack. Pt denied any history of suicidal thoughts/plans/ideations. Pt denied any current suicidal/homicidal thoughts/plans/ideations. Health Hx: Pt states that the last few months have been tough regarding her health. Pt states that August 23 2021 she was diagnosed as having Mass on her Cervix and having Cervix Cancer. Pt states then on August she received a hysterectomy. Pt was told that her Cancer was not metastasize. SW offered support to pt. Supports: SW asked pt if she has any family or friends for support. Pt states that all of her family members live out of town. Pt states that she has a daughter who lives in [place]. SW asked pt about the son Estrada listed on demographics sheet. Pt states that Estrada lives in town. Pt states that he lives with his father. Pt states that she will talk to her family on the phone. Discharge Plans: SW spoke with pt about discharge plans and that PT/OT is stating she can return to [facility] with [facility] for PT/OT. Pt states that sometimes the therapy from [facility] will go down to [facility] and work with the residents. Patient was provided a list of [facility] providers including quality and resource use data and consistent with the patient?s preferred geographic region, medical needs, and insurance network. SW informed pt that this worker will call [facility] and discuss [facility] options. Pt states understanding, agreeable to returning to [facility] with [facility]. Pt states that she would like to stay at [facility] today though. ELVIN placed a call to Franklin at [facility] and left message regarding pt. SW waiting for call back. Plan: Return to [facility] with [facility] Summer Cervantes [place], BELT CHANGER
--- NOTE | 2021-09-21 13:27 | CASEMGMT ---
JESUS CM in to discuss SHERMAN form with patient. RN CM explained SHERMAN form, patient voiced understanding. Pt signed form and filed in chart. Pt provided with a copy of signed SHERMAN form. Patient had no further questions or concerns at this time.
[2021-09-21 14:15] VITALS: BP 134/68; PULSE 96; RESP 16; TEMP 36.5; O2SAT 97
--- NOTE | 2021-09-21 14:35 | CASEMGMT ---
Social Work Note ELVIN received call from Franklin at [facility]. ELVIN updated Franklin that PT/OT is stating pt can return to [facility] with HHC for therapy. Franklin states understanding. ELVIN asked Franklin how to get HHC for PT/OT for pt at [facility]. Franklin states that order for HHC for PT/OT will just need to be placed and then he can have the therapy from [facility] see pt on [facility] side. ELVIN asked Franklin if pt will need COVID test to return and Franklin states they can test pt once pt returns to [facility]. ELVIN faxed updated clinicals to [facility]. SW updated RN CM that order for HHC for PT/OT will need placed. SW in to speak with pt. SW updated pt that order for HHC for PT/OT will be placed and then once pt is back to [facility], therapy from [facility] will see pt on [facility] side. Pt states understanding, states that she prefers to stay at [facility] today. SW informed pt that this worker will update physician. ELVIN updated physician. Pt to discharge back to [facility] tomorrow. ELVIN placed a call to Franklin at [facility] and updated him that pt will stay at [facility] today and discharge back to [facility] tomorrow. Franklin states understanding. Plan: Return to [facility] with HHC for PT/OT. Summer Cervantes COSTUME DIRECTOR, SIGN HANGER SUPERVISOR
--- NOTE | 2021-09-21 15:10 | CHAPLAIN ---
Type of Pastoral Visit _x__ Initial Visit ___ Follow-up Visit ___ On-call Visit ___ General Patient Visit ___ Spiritual Assessment ___ Family Conference ___ Bereavement ___ Rapid Response ___ Code Blue ___ Other (describe below) Pastoral Care Referral From _x__ Patient ___ Family ___ Nurse ___ Physician ___ Real Estate Photographer ___ Public Utilities Sales Representative ___ Other (describe below) Sacrament/Intervention _x__ Active listening ___ Anointing ___ Mandaeism ___ Bereavement ___ Communion _x__ Zaria exploration ___ _x__ Life review _x__ Prayer ___ Reconciliation ___ Sacrament of Sick _x__ Supportive presence ___ Wedding ___ Other (describe below) Pastoral Comments patient gives explanation of her situation; pt is talkative and welcomes spiritual care and emotional support; pt welcomes visit and prayer
[2021-09-21 16:30] LABS: Bedside Glucose 173 mg/dL (74-106)
[2021-09-21 21:50] VITALS: BP 150/80; PULSE 91; RESP 16; TEMP 36.7; O2SAT 96
[2021-09-21] MEDS: Insulin Glargine-YFGN 100 UNIT/ML Pen 65 UNIT SC (22:00)
[2021-09-21] MEDS: Atorvastatin Calcium 40 MG Tablet PO (22:01)
[2021-09-21 22:25] LABS: Bedside Glucose 198 mg/dL (74-106)
[2021-09-22] MEDS: Ondansetron 4 MG/2 ML Vial IV (00:36)
[2021-09-22] MEDS: 0.9% Saline Lock 10 ML Syringe IV (00:39)
[2021-09-22 03:20] VITALS: BP 123/78; PULSE 97; RESP 16; TEMP 36.6; O2SAT 96
[2021-09-22] MEDS: lamoTRIgine 100 MG Tablet PO (07:51)
[2021-09-22] MEDS: APIXABAN 5 MG TABLET 10 MG PO (07:51)
[2021-09-22] MEDS: Lisinopril 5 MG Tablet PO (07:51)
[2021-09-22] MEDS: QUEtiapine 100 MG Tablet 300 MG PO (07:52)
--- NOTE | 2021-09-22 08:58 | PCM.TXEXTCAR ---
Diet 09/20/21 12:37 Diet: Consistent Carb - Calorie Controlled Food consistency:: Regular Liquid Consistency:: Regular/Thin Dietary Modifications:: Cardiac / Heart Healthy How many daily calories?: 2000 calorie Routine Orders/Code Status Suppository Type: Dulcolax 10mg Suppository Frequency: Daily PRN Routine Lab Work: CBC and BMP Code Status: Full Code Wound(s) Abdomen: Wound Type: Surgical Incision Therapies Weight Bearing: Weight bearing as tolerated Extremity Affected:: Bilateral Lower Physical Therapy: Eval and Treat Occupational Therapy: Eval and Treat Speech Therapy: Eval and Treat Problem/Diagnosis (1) Pulmonary embolism: Status: Acute (2) Debility: Status: Acute Allergies/Procedures Done in Hospital Allergies ciprofloxacin [From Cipro] Allergy (Mild, Verified 09/20/21 12:38) Anaphylaxis ciprofloxacin HCl [From Cipro] Allergy (Verified 08/11/21 09:29) Anaphylaxis Iodinated Contrast Media [Iodinated Contrast Media - IV Dye] Allergy (Verified 08/11/21 09:29) Rash paliperidone [From Invega] Allergy (Verified 08/11/21 09:29) Rash Penicillins Allergy (Verified 08/11/21 09:29) RASH AND ITCHING red (food color) Allergy (Verified 09/20/21 12:38) Hives red dye Allergy (Verified 08/11/21 09:29) Hives Sulfa (Sulfonamide Antibiotics) Allergy (Verified 08/11/21 09:29) RASH AND ITCHING metformin Adverse Reaction (Verified 08/11/21 09:29) Nausea/Vom/Diarrhea shellfish derived Adverse Reaction (Verified 08/11/21 09:29) Nausea/Vom/Diarrhea Type of Care/Length of Stay Estimated LOS: Convalescent Care Less Than 30 days Type of Care Needed: Skilled Rehab Potential: Good Prognosis: Good Additional Orders/Day of Discharge Day of Discharge: 09/22/21 Dietary and Speech Recommendations Dietitian Recommendations/Changes: Will adjust diet order to 2000 calorie/consistent carbohydrate with cardiac diet restriction. ONS only if PO established inadequate at meals. Discharge Plan Admission Admit Date/Time: 09/20/21 11:59 Primary Reason for Your Visit: Pulmonary embolism, bilateral segmental Attending Provider: Tyrell Page Primary Care Provider: Shayna Malhotra Discharge Orders/Prescriptions Prescriptions: New Eliquis 5 mg Tablet 10 mg PO BID Qty: 70 RF: 0 insulin lispro [Humalog KwikPen Insulin] 100 unit/mL Insulin Pen See Protocol unit subcut TIDAC Qty: 0 RF: 0 Continued lisinopril 5 mg tablet 5 mg PO QDAY Qty: 90 RF: 3 miconazole nitrate 2 % powder 1 applic TOPICAL BID Qty: 85 RF: 2 (DME) lancets [FreeStyle Lancets] 28 gauge misc See Rx Instructions .ROUTE .MEDSUPPLY Qty: 200 RF: 3 (DME) blood-glucose meter [FreeStyle Lite Meter] Kit See Rx Instructions .ROUTE .MEDSUPPLY Qty: 1 RF: 0 (DME) FreeStyle Lite Strips Strip See Rx Instructions .ROUTE .MEDSUPPLY Qty: 100 RF: 3 Trulicity 1.5 mg/0.5 mL pen injector 1.5 mg SC QWEEK Qty: 2 RF: 1 Adult 50 Plus Probiotic 4 billion cell capsule 4,000 mmu cells PO DAILY RF: 0 dextrose [Glucose Gel] 40 % gel 10 g PO Q15M PRN (Reason: BG<70 and unable to swallow) RF: 0 clonazepam 0.5 mg tablet 0.5 mg PO Q8H PRN PRN (Reason: panic attack(s)) Qty: 90 RF: 0 guaifenesin 100 mg/5 mL liquid 200 mg PO Q4H PRN (Reason: cough) RF: 0 acetaminophen [Tylenol] 325 mg tablet 325 mg PO Q4H PRN PRN (Reason: Pain) RF: 0 lamotrigine 100 MG tablet 100 mg PO DAILY Qty: 30 RF: 0 Quetiapine Fumarate [Seroquel Xr] 300 MG Tab.Sr.24h 600 mg PO QHS Qty: 60 RF: 0 ergocalciferol (vitamin D2) 1,250 mcg (50,000 unit) Capsule 50,000 unit PO Q14D RF: 0 atorvastatin 40 mg tablet 40 mg PO QHS RF: 0 polyethylene glycol 3350 [Miralax] 17 gram Powder In Packet 17 g PO DAILY RF: 0 tramadol 50 mg Tablet 50 mg PO Q6H PRN (Reason: Pain) RF: 0 triamcinolone acetonide 0.1 % Cream 1 applic TOPICAL Q12H PRN PRN (Reason: Rash) RF: 0 Lantus Solostar U-100 Insulin 100 unit/mL (3 mL) insulin pen 65 unit SC QHS Qty: 0 RF: 0 (DME) blood sugar diagnostic [FreeStyle Lite Strips] strip See Dose Instructions .ROUTE .MEDSUPPLY Qty: 150 RF: 11 (DME) blood-glucose meter [FreeStyle Lite Meter] kit See Dose Instructions .ROUTE .MEDSUPPLY Qty: 1 RF: 0 Changed insulin lispro [Humalog KwikPen Insulin] 100 unit/mL insulin pen 16 unit SC TID Qty: 0 RF: 0 Discontinued aluminum-magnesium hydroxide 225-200 mg/5 mL suspension 30 ml PO Q4H PRN PRN (Reason: GI Distress) RF: 0 Referrals / Follow Up: Christiano Corley DO [STAFF PHYSICIAN] - Within 1 Month (for bilateral multiple segmental pulmonary embolism) Shayna Malhotra MD [Primary Care Provider] - Within 2 Weeks Disposition Disposition (needs filled in before D/C Order can be placed): Assisted Living
[2021-09-22 09:10] LABS: Bedside Glucose 145 mg/dL (74-106)
[2021-09-22] MEDS: Insulin Lispro 100 UNIT/ML INSULN.PEN 14 UNIT SC (09:10)
[2021-09-22 09:30] VITALS: BP 151/87; PULSE 85; RESP 17; TEMP 36.9; O2SAT 94
--- NOTE | 2021-09-22 10:09 | PCM.DC.SUM ---
Providers Date of Admission: 09/20/21 Date of Discharge: 09/22/21 Primary Care Physician: Dr. Shayna Malhotra MD Reason For Visit: PE, FAILURE TO THRIVE Diagnosis Discharge Diagnosis (1) Pulmonary embolism: Status: Acute Code(s): I26.99 - Other pulmonary embolism without acute cor pulmonale Qualifiers: Pulmonary embolism type: multiple subsegmental (without acute cor pulmonale) Qualified Code(s): I26.94 - Multiple subsegmental pulmonary emboli without acute cor pulmonale (2) Debility: Status: Acute Code(s): R53.81 - Other malaise Medications at Discharge Home Medications lisinopril 5 mg tablet 5 mg PO QDAY #90 tab 09/08/17 blood sugar diagnostic #150 ea 09/14/17 blood-glucose meter #1 ea 09/14/17 Quetiapine Fumarate [Seroquel Xr] 600 mg PO QHS #60 tab.sr.24h 02/28/19 lamotrigine 100 mg PO DAILY #30 tab 02/28/19 blood sugar diagnostic #100 ea 03/01/19 blood-glucose meter #1 ea 03/01/19 lancets 28 gauge #200 ea 03/01/19 miconazole nitrate 2 % topical powder 1 applic TOPICAL BID #85 g 03/01/19 dulaglutide 1.5 mg/0.5 mL subcutaneous pen injector 1.5 mg SC QWEEK #2 ml 03/21/20 clonazepam 0.5 mg tablet 0.5 mg PO Q8H PRN PRN #90 tab 06/25/20 dextrose 40 % oral gel 10 g PO Q15M PRN 06/25/20 lactobacillus combination no.9 4 billion cell capsule 4,000 mmu cells PO DAILY 06/25/20 acetaminophen 325 mg tablet 325 mg PO Q4H PRN PRN 07/30/21 guaifenesin 100 mg/5 mL oral liquid 200 mg PO Q4H PRN 07/30/21 atorvastatin 40 mg PO QHS 09/20/21 ergocalciferol (vitamin D2) 50,000 unit PO Q14D 09/20/21 polyethylene glycol 3350 [Miralax] 17 g PO DAILY 09/20/21 tramadol 50 mg PO Q6H PRN 09/20/21 triamcinolone acetonide 1 applic TOPICAL Q12H PRN PRN 09/20/21 Lantus Solostar U-100 Insulin 65 unit SC QHS #0 ml 09/22/21 apixaban [Eliquis] 10 mg PO BID #70 tab 09/22/21 insulin lispro [Humalog KwikPen Insulin] 16 unit SC TID #0 ml 09/22/21 insulin lispro [Humalog KwikPen Insulin] See Protocol SUBCUT TIDAC #0 ml 09/22/21 Hospital Course Summary of Care Provided Hospital Course: This 62-year-old female who came to ER for generalized weakness. D-dimer was elevated at 2.47. Her further hospital course as mentioned below 1. Pulmonary embolism, most probably due to recent abdominal hysterectomy with bilateral salpingo-oophorectomy on September 07, [address] [facility] CT reported low volume acute multiple subsegmental pulmonary embolism without acute cor pulmonale. Patient is not in hypotension. On Eliquis. Continue PT and OT. Lower extremity ultrasound will be futile as management is not going to change. No to be bilateral but patient is currently hemodynamically stable. Recommend 6 months of anticoagulation. 2. Debility likely multifactorial to the patient's recent hysterectomy, PEs but also her morbid obesity and other medical comorbidities. Explained to patient that this is the primary reason that she is being admitted to the hospital and at this point time will be under observation status. Did inform her that it may lead to higher co-pays for her. She states that it should not be an issue. PT OT evaluate and treat and I told the patient that that is very important that she does work with physical therapy. I am concerned for amotivation on the patient's behalf. 3. Diabetes mellitus type 2 Continue with glargine, prandial insulin and Trulicity sliding-scale insulin 4. Endometrial cancer Status post KANDACE SBO on September 07. 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 Chronic seizure disorder, exact etiology and collapse unclear, bipolar disorder, morbid obesity and dyslipidemia: Multiple comorbidities complicates the present care and expect difficult and delay recovery. Continue atorvastatin. On Seroquel. Weight loss advised. Quick Print Operator consult. 6. VTE prophylaxis: Patient is already anticoagulated so not indicated The patient is discharged assisted living with home health care. Discharge medication reconciliation done. Discharge follow-up instructions completed. Discharge process discussed with the patient and all questions were answered to patient's satisfaction. Discharged home Eliquis 10 mg twice daily for total of 7 days and then 5 mg twice daily to continue. Total time spent, exact 35 minutes on discharge meds reconciliation, examination, coordination of care with nurses and ancillary staff, review of imaging and blood test and discussion with the patient on follow-up instructions. Physical Exam Narrative Seen and examined. Patient had mild nausea and vomiting may be due to the food intake/possible egg. It has resolved. No acute issues. Vital signs in normal limit. General: Alert, Oriented x3, Cooperative HEENT: Atraumatic, PERRLA, EOMI, Normocephalic Oral: No Gingival or Mucosal Lesions/ Ulcerations Neck: Supple, No JVD, Negative Carotid Bruits Lungs: Air entry diminished in bilateral lung bases. No crepitation/rhonchi Cardiovascular: Regular rate, Regular Rhythm, Normal S1, Normal S2, No murmurs Abdomen: Scar rg of laparoscopic hysterectomy. Bowel Sounds Present, Soft, Non Tender, Non-Distended : No renal angle tenderness. No suprapubic tenderness. Extremities: Bilateral lower extremity nonpitting edema, Capillary Refill Less than 3 Seconds Skin: No rashes, No breakdown Musculoskeletal: No Tenderness to Palpation of Joints or Extremities, muscle strength 4/5 at major joints Neurological: Cranial nerves II-XII grossly intact, DTR 2+/4 and Symmetrical Psych/Mental Status: Normal Affect, Appropriate Weight / BMI Weight Weight: 302 lb 14.642 oz Body Mass Index (BMI) 49.6 ABG / Lab / Microbiology Data Result Diagrams: 09/20/21 08:26 09/20/21 08:26 Laboratory: Laboratory Results - last 24 hr 09/21/21 11:54: POC Glucose 181 H 09/21/21 16:22: POC Glucose 173 H 09/21/21 21:58: POC Glucose 198 H Meaningful Use Info Meaningful Use Diagnoses (Choose all that apply): None applicable and VTE VTE Anticoag overlap given w/in hospital stay or rx'd at dc?: No Reason overlap not ordered, prescribed, or given for 5 days: Procedure Not Indicated Discharge Plan Admission Admit Date/Time: 09/20/21 11:59 Primary Reason for Your Visit: Pulmonary embolism, bilateral segmental Attending Provider: Tyrell Page Primary Care Provider: Shayna Malhotra Discharge Orders/Prescriptions Prescriptions: New Eliquis 5 mg Tablet 10 mg PO BID Qty: 70 RF: 0 insulin lispro [Humalog KwikPen Insulin] 100 unit/mL Insulin Pen See Protocol unit subcut TIDAC Qty: 0 RF: 0 Continued lisinopril 5 mg tablet 5 mg PO QDAY Qty: 90 RF: 3 miconazole nitrate 2 % powder 1 applic TOPICAL BID Qty: 85 RF: 2 (DME) lancets [FreeStyle Lancets] 28 gauge misc See Rx Instructions .ROUTE .MEDSUPPLY Qty: 200 RF: 3 (DME) blood-glucose meter [FreeStyle Lite Meter] Kit See Rx Instructions .ROUTE .MEDSUPPLY Qty: 1 RF: 0 (DME) FreeStyle Lite Strips Strip See Rx Instructions .ROUTE .MEDSUPPLY Qty: 100 RF: 3 Trulicity 1.5 mg/0.5 mL pen injector 1.5 mg SC QWEEK Qty: 2 RF: 1 Adult 50 Plus Probiotic 4 billion cell capsule 4,000 mmu cells PO DAILY RF: 0 dextrose [Glucose Gel] 40 % gel 10 g PO Q15M PRN (Reason: BG<70 and unable to swallow) RF: 0 clonazepam 0.5 mg tablet 0.5 mg PO Q8H PRN PRN (Reason: panic attack(s)) Qty: 90 RF: 0 guaifenesin 100 mg/5 mL liquid 200 mg PO Q4H PRN (Reason: cough) RF: 0 acetaminophen [Tylenol] 325 mg tablet 325 mg PO Q4H PRN PRN (Reason: Pain) RF: 0 lamotrigine 100 MG tablet 100 mg PO DAILY Qty: 30 RF: 0 Quetiapine Fumarate [Seroquel Xr] 300 MG Tab.Sr.24h 600 mg PO QHS Qty: 60 RF: 0 ergocalciferol (vitamin D2) 1,250 mcg (50,000 unit) Capsule 50,000 unit PO Q14D RF: 0 atorvastatin 40 mg tablet 40 mg PO QHS RF: 0 polyethylene glycol 3350 [Miralax] 17 gram Powder In Packet 17 g PO DAILY RF: 0 tramadol 50 mg Tablet 50 mg PO Q6H PRN (Reason: Pain) RF: 0 triamcinolone acetonide 0.1 % Cream 1 applic TOPICAL Q12H PRN PRN (Reason: Rash) RF: 0 Lantus Solostar U-100 Insulin 100 unit/mL (3 mL) insulin pen 65 unit SC QHS Qty: 0 RF: 0 (DME) blood sugar diagnostic [FreeStyle Lite Strips] strip See Dose Instructions .ROUTE .MEDSUPPLY Qty: 150 RF: 11 (DME) blood-glucose meter [FreeStyle Lite Meter] kit See Dose Instructions .ROUTE .MEDSUPPLY Qty: 1 RF: 0 Changed insulin lispro [Humalog KwikPen Insulin] 100 unit/mL insulin pen 16 unit SC TID Qty: 0 RF: 0 Discontinued aluminum-magnesium hydroxide 225-200 mg/5 mL suspension 30 ml PO Q4H PRN PRN (Reason: GI Distress) RF: 0 Referrals / Follow Up: Christiano Corley DO [STAFF PHYSICIAN] - Within 1 Month (for bilateral multiple segmental pulmonary embolism) Shayna Malhotra MD [Primary Care Provider] - Within 2 Weeks Disposition Disposition (needs filled in before D/C Order can be placed): Assisted Living Charges/Coding Visit Charges Inpatient E&M: 28341 Disch Hosp
--- NOTE | 2021-09-22 10:22 | CASEMGMT ---
Social Work Note Pt to discharge back to [facility] today. ELVIN placed a call to Franklin at [facility] and updated him that pt will return to [facility] today. Franklin states understanding. ELVIN spoke with RN. Pt to transport via wheelchair van. [facility]. Plan: Return to [facility] today with [facility] Summer Cervantes SLEEVE IRONER, ASSISTANT BRAND MANAGER
--- NOTE | 2021-09-22 11:04 | CASEMGMT ---
Social Work Note ELVIN faxed discharge paperwork to Franklin at [facility]. Original in SNF folder and copy on pt's chart. ELVIN faxed [facility] script and placed original in folder. ELVIN spoke with RN, pt to transport via wide wheelchair. ELVIN placed a call to [facility] and spoke with Baljit. ELVIN requested wide wheelchair, wheelchair van for transport, and requested Physician's to transport. Bal[place] [id number]. Baljit states once transportation is confirmed, [facility] will be called with transportation time. ELVIN updated RN. ELVIN in to speak with pt. Pt states she is aware she will return to [facility] today. ELVIN informed pt that this worker is not sure when transportation will transport pt as this worker is waiting for call back with time. Pt states understanding, agreeable to returning to [facility] today. ELVIN placed a call to Franklin at [facility] and left message that discharge paperwork has been faxed, transportation is unknown as this worker is waiting for pt's insurance to arrange transportation. Plan: Return to [facility] with [facility] today. Transportation was arranged through [facility] as pt has [facility] insurance. Summer Cervantes MENTAL HEALTH ORDERLY, MANAGER ADOBE
--- NOTE | 2021-09-22 11:12 | NURSING ---
REPORT CALLED TO BIRDIE AT [facility]. UNSURE OF TIME FRAME FOR TRANSPORTATION AT THIS TIME
--- NOTE | 2021-09-22 11:41 | PHA.DC.MR ---
Pharmacy Service has performed discharge medication reconciliation for this patient. The patient's discharge medication list was reviewed for discrepancies and discrepancies were resolved. Home Medications lisinopril 5 mg tablet 5 mg PO QDAY #90 tab 09/08/17 blood sugar diagnostic #150 ea 09/14/17 blood-glucose meter #1 ea 09/14/17 Quetiapine Fumarate [Seroquel Xr] 600 mg PO QHS #60 tab.sr.24h 02/28/19 lamotrigine 100 mg PO DAILY #30 tab 02/28/19 blood sugar diagnostic #100 ea 03/01/19 blood-glucose meter #1 ea 03/01/19 lancets 28 gauge #200 ea 03/01/19 miconazole nitrate 2 % topical powder 1 applic TOPICAL BID #85 g 03/01/19 dulaglutide 1.5 mg/0.5 mL subcutaneous pen injector 1.5 mg SC QWEEK #2 ml 03/21/20 clonazepam 0.5 mg tablet 0.5 mg PO Q8H PRN PRN #90 tab 06/25/20 dextrose 40 % oral gel 10 g PO Q15M PRN 06/25/20 lactobacillus combination no.9 4 billion cell capsule 4,000 mmu cells PO DAILY 06/25/20 acetaminophen 325 mg tablet 325 mg PO Q4H PRN PRN 07/30/21 guaifenesin 100 mg/5 mL oral liquid 200 mg PO Q4H PRN 07/30/21 atorvastatin 40 mg PO QHS 09/20/21 ergocalciferol (vitamin D2) 50,000 unit PO Q14D 09/20/21 polyethylene glycol 3350 [Miralax] 17 g PO DAILY 09/20/21 tramadol 50 mg PO Q6H PRN 09/20/21 triamcinolone acetonide 1 applic TOPICAL Q12H PRN PRN 09/20/21 Lantus Solostar U-100 Insulin 65 unit SC QHS #0 ml 09/22/21 apixaban [Eliquis] 10 mg PO BID #70 tab 09/22/21 insulin lispro [Humalog KwikPen Insulin] 16 unit SC TID #0 ml 09/22/21 insulin lispro [Humalog KwikPen Insulin] See Protocol SUBCUT TIDAC #0 ml 09/22/21
--- NOTE | 2021-09-22 12:05 | CASEMGMT ---
Social Work Note SW updated that [facility] now back to [facility]. SW placed a call to Franklin at [facility] and left message that pt's transportation is here at [facility] now to transport pt. Summer Cervantes MUSIC COORDINATOR, CONCESSION STAND ATTENDANT
== END 2021-09-22 12:24 | disposition home health service (06) ==
LOC: ED 11:52 → MS3 12:17
PROVIDERS: Emergency Provider Student in an Organized Health Care Education/Training Program; PCP Internal Medicine; Visit Provider Internal Medicine
DX: I26.94 Multiple subsegmental thrombotic pulmonary emboli without acute cor pulmonale (principal); K74.60 Unspecified cirrhosis of liver; F31.9 Bipolar disorder, unspecified; G40.909 Epilepsy, unspecified, not intractable, without status epilepticus; C54.1 Malignant neoplasm of endometrium; Z79.4 Long term (current) use of insulin; E10.9 Type 1 diabetes mellitus without complications; I25.10 Atherosclerotic heart disease of native coronary artery without angina pectoris; R53.81 Other malaise; E78.5 Hyperlipidemia, unspecified; R62.7 Adult failure to thrive; Z87.891 Personal history of nicotine dependence; R53.1 Weakness; R60.0 Localized edema; E55.9 Vitamin D deficiency, unspecified; Z79.899 Other long term (current) drug therapy; R06.02 Shortness of breath
CPT/HCPCS: 71045; 71275; 80048; 82962; 83880; 84484; 85025; 85379; 93005; 96374; 96375; 97162; 97166; 97802; 99218; 99285; Q9967; A4216; G0378; J2405

== ENCOUNTER → 2021-10-13 | Outpatient (REF) | payer MEDICARE, MEDICAID, SELFPAY ==
[2021-10-13 06:59] LABS: Absolute Lymphocyte Count 1.22 X10^3/uL (0.83-4.51); Absolute Neutrophil Count 5.1 X10^3/uL (2.0-7.7); Basophil# 0.02 X10^3/uL; Basophil% 0.3 % (0-1); Eosinophil# 0.12 X10^3/uL; Eosinophils% 1.7 % (0-5); Hematocrit 36.3 % (37-47); Hemoglobin 12.1 g/dL (12.0-15.0); Lymphocyte # 1.22 X10^3/ul (0.83-4.51); Lymphocyte % 17.1 % (19-41); Mean Corp Hgb Conc 33.3 g/dL (32-36); Mean Corpuscular Hgb 28.7 pg (27.0-32.0); Mean Corpuscular Volume 86.2 fL (81-99); Mean Platelet Vol. 10.7 fl (6.2-12.0); Monocyte% 9.8 % (0-10); NRBC Flagged by Analyzer 0 % (0-5); Neutrophil # 5.05 X10^3/uL (2.7-7.7); Neutrophil % 70.8 % (47-70); Platelet Count 158 K/mm3 (150-450); RBC Distribution Width CV 14.4 % (11.6-14.6); RBC Distribution Width SD 45.6 fl (35.1-43.9); Red Blood Count 4.21 M/mm3 (4.2-5.4); White Blood Count 7.1 K/mm3 (4.4-11.0)
[2021-10-13 07:17] LABS: ALB/GLOB Ratio 0.6 RATIO (0.9-2.4); AST(SGOT) 28 U/L (15-37); Alanine Aminotransfer ALT/SGPT 31 U/L (13-56); Albumin, Serum 2.9 g/dL (3.2-5.0); Alkaline Phosphatase 169 U/L (45-117); Anion Gap 7 (5-15); BUN 13 mg/dL (7-18); BUN/Creat Ratio 14.3 RATIO (10-20); Calcium,Total 8.8 mg/dL (8.5-10.1); Chloride 102 mmol/L (98-107); Creatinine, Serum 0.91 mg/dL (0.55-1.02); EST Glomerular Filtration Rate 66 mL/min (>60); Est Glom Filt Rate - Afr Amer 79 mL/min (>60); Globulin 4.5 g/dL (2.2-4.2); Glucose 259 mg/dL (74-106); Potassium 4.4 mmol/L (3.5-5.1); Protein, Total 7.4 g/dL (6.4-8.2); Sodium Level 134 mmol/L (136-145)
[2021-10-13 07:47] LABS: Vitamin D,25 Hydroxy 67.4 ng/mL
== END | disposition home or self-care (01) ==
LOC: OLS.SWAL 05:00
PROVIDERS: PCP Internal Medicine
DX: E78.5 Hyperlipidemia, unspecified (principal); E11.9 Type 2 diabetes mellitus without complications; E55.9 Vitamin D deficiency, unspecified
CPT/HCPCS: 36415; 80053; 82306; 85025

== ENCOUNTER → 2021-10-27 | Outpatient (REF) | payer MEDICARE, MEDICAID, SELFPAY ==
[2021-10-27 08:18] LABS: Hemoglobin A1c 8.3 % (3.8-5.6)
== END | disposition home or self-care (01) ==
LOC: OLS.SWAL 05:00
PROVIDERS: PCP Internal Medicine
DX: E11.9 Type 2 diabetes mellitus without complications (principal)
CPT/HCPCS: 36415; 83036

== ENCOUNTER 2021-11-22 12:59 | Inpatient (IN) | payer MEDICARE, MEDICAID, SELFPAY ==
[2021-11-22] VITALS (13 sets, daily range): BP systolic 97–142; BP diastolic 53–78; PULSE 107–132; RESP 18–28; TEMP 37.1–38.2; O2SAT 94–100; BMI 51.4; BMI 51.5
--- NOTE | 2021-11-22 13:15 | RAD_ITS ---
STUDY: X-RAY CHEST REASON FOR EXAM: Female, 70 years old. dyspnea TECHNIQUE: Single AP portable view of the chest. COMPARISON: 09/20/2021 FINDINGS: The lungs are clear and expanded. There is no demonstrated pleural abnormality. Normal size heart. Normal mediastinum and easton. Normal visualized pulmonary arteries. Normal visualized aortic arch and descending thoracic aorta. Normal visualized thoracic spine. Normal visualized ribs, clavicles, and shoulders. There is no demonstrated abnormality of the visualized soft tissue structures of the upper abdomen. RAD/Chest 1 View (Portable) IMPRESSION: Normal x-ray examination of the chest. Electronically Signed: Dilan Solis MD at 14:30 EDT ,
--- NOTE | 2021-11-22 13:15 | EKG12_ITS ---
Test Reason : SOB Blood Pressure : / mmHG Vent. Rate : 130 BPM Atrial Rate : 130 BPM P-R Int : 164 ms QRS Dur : 082 ms QT Int : 294 ms P-R-T Axes : 053 -10 036 degrees QTc Int : 432 ms Sinus tachycardia Inferior infarct , age undetermined Abnormal ECG Confirmed by ARCENIO LEAL, NAEEM ([id number]), website/blog editor EH BARAJAS ([id number]) on 11/23/2021 10:16:17 AM Referred By: JOSE Confirmed By:NAEEM RG MD
--- NOTE | 2021-11-22 13:36 | CT_ITS ---
STUDY: CT BRAIN WITHOUT CONTRAST REASON FOR EXAM: Female, 70 years old. head injury, headache RADIATION DOSAGE (If Supplied By Facility): CTDIvol = ( 44.99 ) mGy, DLP = ( 779.24 ) mGycm TECHNIQUE: Transaxial CT imaging of the brain was performed without administration of intravenous contrast material. Individualized dose optimization techniques were used for this CT. COMPARISON: 10/28/2016 FINDINGS: Normal soft tissue structures. Normal calvarium. Normal size ventricles and extra-axial spaces for the patient''s age. Normal white matter tracts of the cerebral hemispheres. Normal basal ganglia and thalami. Normal brainstem. Normal cerebellum. There is no intracranial hemorrhage. There are no findings of an acute ischemic infarction. Normal visualized paranasal sinuses. CT/Brain/Head without Contrast IMPRESSION: Normal unenhanced CT scan of the brain. Electronically Signed: Dilan Solis MD at 15:34 EDT ,
--- NOTE | 2021-11-22 13:36 | CT_ITS ---
STUDY: CT CERVICAL SPINE WITHOUT CONTRAST REASON FOR EXAM: Female, 70 years old. fall, neck pain RADIATION DOSAGE (If Supplied By Facility): CTDIvol = ( 33.51 ) mGy, DLP = ( 675.76 ) mGycm TECHNIQUE: High resolution transaxial imaging was performed without contrast material. Sagittal and coronal images were reconstructed. Individualized dose optimization techniques were used for this CT. COMPARISON: None FINDINGS: Normal craniovertebral junction. There are degenerative changes of the anterior atlantoaxial articulation. Normal odontoid process. There is reversal of the normal cervical lordosis. Normal vertebral bodies and posterior osseous elements. C2-3: Normal endplates. Normal disc height and morphology. Normal central canal and intervertebral neuroforamina. C3-4: Mild broad disc osteophyte complex and bilateral uncovertebral hypertrophy produces mild spinal stenosis and mild bilateral neural foraminal stenosis. C4-5: Mild broad disc osteophyte complex and bilateral uncovertebral hypertrophy produces mild spinal stenosis and mild bilateral neural foraminal stenosis. C5-6: Mild broad disc osteophyte complex and bilateral vertebral hypertrophy produces mild spinal stenosis and mild bilateral neural foraminal stenosis. C6-7: Mild broad disc osteophyte complex and bilateral vertebral hypertrophy produces mild spinal stenosis and mild bilateral neural foraminal stenosis. C7-T1: Normal endplates. Normal disc height and morphology. Normal central canal and intervertebral neuroforamina. Normal visualized soft tissue structures. CT/Spine Cervical without Contras IMPRESSION: No acute fracture or subluxation. Electronically Signed: Dilan Solis MD at 15:43 EDT ,
[2021-11-22 13:37] LABS: Absolute Lymphocyte Count 0.27 X10^3/uL (0.83-4.51); Absolute Neutrophil Count 2.6 X10^3/uL (2.0-7.7); Basophil# 0.01 X10^3/uL; Basophil% 0.3 % (0-1); Hemoglobin 12.9 g/dL (12.0-15.0); Lymphocyte # 0.27 X10^3/ul (0.83-4.51); Lymphocyte % 9.4 % (19-41); Mean Corp Hgb Conc 33.1 g/dL (32-36); Mean Corpuscular Hgb 27.7 pg (27.0-32.0); Mean Corpuscular Volume 83.7 fL (81-99); Monocyte# 0.02 X10^3/uL; Monocyte% 0.7 % (0-10); NRBC Flagged by Analyzer 0 % (0-5); Neutrophil # 2.55 X10^3/uL (2.7-7.7); Neutrophil % 89.3 % (47-70); POSITIVE DIFFERENTIAL YES; POSITIVE MORPHOLOGY YES; Platelet Count 121 K/mm3 (150-450); RBC Distribution Width CV 14.6 % (11.6-14.6); RBC Distribution Width SD 44.4 fl (35.1-43.9); Red Blood Count 4.66 M/mm3 (4.2-5.4); White Blood Count 2.9 K/mm3 (4.4-11.0)
--- NOTE | 2021-11-22 13:41 | EDS_ITS ---
HPI History of Present Illness Chief Complaint: Shortness of Breath Narrative Narrative: 70-year-old female presenting with shortness of breath. She has a history of endometrial carcinoma status post total hysterectomy in September. She was seen here at [facility] and diagnosed with pulmonary emboli and admitted to the hospital for generalized weakness after this. Patient has been on Eliquis since that time. Patient states that she fell yesterday while trying to get into her chair at home and landed on her buttocks. She does not think she hit her head or lost consciousness but she also states she does not know. Patient states that she hurts everywhere on her entire body. When asked if she has a cough she states I have been trying to cough. She has not had a fever at home. She does state that she was nauseous yesterday but does not report that today. [facility] Medical History Anxiety Bipolar 1 disorder Cancer Diabetes DVT (deep venous thrombosis) Former smoker history of broken heel left foot History of recurrent UTIs History of seizures Hyperlipidemia Hypertension Vitamin D deficiency Home Medications lisinopril 5 mg tablet 5 mg PO QDAY #90 tabs 09/08/17 [Rx Last Taken Unknown] blood sugar diagnostic (FreeStyle Lite Strips) #150 ea 09/14/17 [Rx Last Taken Unknown] blood-glucose meter (FreeStyle Lite Meter) #1 ea 09/14/17 [Rx Last Taken Unknown] Quetiapine Fumarate [Seroquel Xr] 600 mg PO QHS ##60 02/28/19 [Rx Last Taken Unknown] lamotrigine 100 mg tablet 100 mg PO DAILY #30 tabs 02/28/19 [Rx Last Taken Unknown] blood sugar diagnostic (FreeStyle Lite Strips) #100 ea 03/01/19 [Rx Last Taken Unknown] blood-glucose meter (FreeStyle Lite Meter) #1 ea 03/01/19 [Rx Last Taken Unknown] lancets 28 gauge (FreeStyle Lancets) #200 ea 03/01/19 [Rx Last Taken Unknown] miconazole nitrate 2 % topical powder 1 applic topical BID #85 grams 03/01/19 [Rx Last Taken Unknown] dulaglutide 1.5 mg/0.5 mL subcutaneous pen injector (PostifyulicBioptigen) 1.5 mg (0.5 mL) subcut QWEEK #2 mL 03/21/20 [Rx Last Taken Unknown] clonazepam 0.5 mg tablet 0.5 mg PO Q8H PRN PRN panic attack(s) #90 tabs 06/25/20 [Rx Last Taken Unknown] lactobacillus combination no.9 4 billion cell capsule (Adult 50 Plus Probiotic) 4,000 mmu cells PO DAILY 06/25/20 [History Last Taken Unknown] acetaminophen 325 mg tablet (Tylenol) 650 mg PO Q4H PRN PRN Pain 07/30/21 [History Last Taken Unknown] guaifenesin 100 mg/5 mL oral liquid 200 mg PO Q4H PRN cough 07/30/21 [History Last Taken Unknown] atorvastatin 40 mg tablet 40 mg PO QHS 09/20/21 [History Last Taken Unknown] ergocalciferol (vitamin D2) 1,250 mcg (50,000 unit) capsule 50,000 unit PO Q14D 09/20/21 [History Last Taken Unknown] triamcinolone acetonide 0.1 % topical cream 1 applic topical Q12H PRN PRN Rash 09/20/21 [History Last Taken Unknown] insulin glargine 100 unit/mL (3 mL) subcutaneous pen (Lantus Solostar U-100 Insulin) 65 unit (0.65 mL) subcut QHS #0 mL 09/22/21 [Rx Last Taken Unknown] insulin lispro 100 unit/mL subcutaneous pen (Humalog KwikPen (U-100) Insulin) See Protocol subcut TIDAC #0 mL 09/22/21 [Rx Last Taken Unknown] apixaban 5 mg tablet (Eliquis) 5 mg PO BID 11/22/21 [History Last Taken Unknown] Allergy/AdvReac Type Severity Reaction Status Date / Time ciprofloxacin [From Cipro] Allergy Mild Anaphylaxis Verified 11/22/21 13:10 ciprofloxacin HCl Allergy Anaphylaxis Verified 11/22/21 13:10 [From Cipro] Iodinated Contrast Media Allergy Rash Verified 11/22/21 13:10 [Iodinated Contrast Media - IV Dye] paliperidone [From Invega] Allergy Rash Verified 11/22/21 13:10 Penicillins Allergy RASH AND Verified 11/22/21 13:10 ITCHING red (food color) Allergy Hives Verified 11/22/21 13:10 red dye Allergy Hives Verified 11/22/21 13:10 Sulfa (Sulfonamide Allergy RASH AND Verified 11/22/21 13:10 Antibiotics) ITCHING metformin AdvReac Nausea/Vom/ Verified 11/22/21 13:10 Diarrhea shellfish derived AdvReac Nausea/Vom/ Verified 11/22/21 13:10 Diarrhea Family History Mother Diabetes Hypertension Heart disease Thyroid disorder Father CVA (cerebral vascular accident) Diabetes Brother Parkinson disease Thyroid disorder Lupus Alcoholism Blood clots in brain Grandfather Heart disease Asthma Social History Smoking Status: Former smoker Tobacco: How many years used: 45 how long ago did patient quit smokin11/2016 substance use type: does not use what type of physical activity do you participate in: none ROS ROS ED Constitutional Constitutional ED: Denies fever(s) or weight loss Eyes Eyes: Denies change in vision or diplopia ENT ENT ED: Denies rhinorrhea or sore throat Cardiovascular Cardiovascular: Reports racing heartbeat Respiratory/Chest Respiratory/Chest: Reports dyspnea Gastrointestinal Gastrointestinal: Reports nausea; Denies abdominal pain Genitourinary Genitourinary ED: Denies dysuria or hematuria Musculoskeletal Musculoskeletal: Reports back pain and myalgias Neurologic Neurologic: Reports headache(s); Denies paresthesias or weakness Psychiatric Psychiatric: Denies anxiety or depression Endocrine Endocrinology: Denies cold intolerance or heat intolerance EXAM Physical Exam Const Vital Signs: 11/22/21 13:00 11/22/21 13:23 11/22/21 13:23 Temperature 100.7 F H 100.7 F H Temperature Source Temporal Temporal Pulse Rate 132 H 124 H Respiratory Rate 26 H 26 H Respiratory Effort Respiratory Depth Respiratory Pattern Blood Pressure 142/53 H 142/53 H Blood Pressure Mean 82 82 Pulse Ox 97 95 Oxygen Delivery Method Room Air Room Air Room Air 11/22/21 13:30 11/22/21 13:41 11/22/21 14:45 Temperature 100.7 F H 99.1 F Temperature Source Temporal Oral Pulse Rate 114 H Respiratory Rate 26 H Respiratory Effort Normal Non-Labored Respiratory Depth Normal Respiratory Pattern Normal Blood Pressure 114/75 Blood Pressure Mean 88 Pulse Ox 94 Oxygen Delivery Method Room Air Room Air 11/22/21 14:45 11/22/21 14:45 11/22/21 15:00 Temperature 99.1 F 99.1 F 99.1 F Temperature Source Oral Oral Oral Pulse Rate 114 H 115 H Respiratory Rate 26 H 20 H Respiratory Effort Respiratory Depth Respiratory Pattern Blood Pressure 114/75 110/53 L Blood Pressure Mean 88 72 Pulse Ox 94 94 Oxygen Delivery Method Room Air Room Air 11/22/21 16:00 Temperature 99.2 F H Temperature Source Oral Pulse Rate 120 H Respiratory Rate 22 H Respiratory Effort Respiratory Depth Respiratory Pattern Blood Pressure 102/57 L Blood Pressure Mean 72 Pulse Ox 95 Oxygen Delivery Method Room Air Positive well nourished and obese General Appearance ED: Negative for pallor Nutritional Appearance: obese HEENT Reports moist mucous membranes Eyes PERRL and EOMs intact bilaterally General Eye ED: Negative for pale conjunctiva Resp Auscultation: diminished lung sounds bilateral lower Cardio regular rhythm Rate: tachycardic GI non-tender Neuro oriented x3, CN's II-XII intact bilaterally and no sensory deficits noted Sensorium / Orientation: alert Psych mental status grossly normal Skin no wounds General Skin Exam: Negative for jaundice or pallor MDM MDM MDM Narrative Medical decision making narrative: Patient presenting with some apparent dyspnea although it took some questioning to get her to answer she was short of breath. Generally she states she just feels unwell and she feels pain all over her body. She does state that she missed her chair yesterday and fell to the floor by her chair. She was helped up. I did not find any bruising or abnormalities on her back. Patient was able to sit forward under her own strength in the bed. Given that she was febrile, tachycardic, tachypneic sepsis work-up was started. She had already taken Tylenol prior to arrival. She states she took this for pain and not for fever. EKG was sinus tachycardia with a ventricular rate of 103 bpm, interpretation. There was no ST elevation or depression. There is no dysrhythmia. Patient was given initial liter of IV fluids. I did obtain CT imaging of the brain and the cervical spine as she states she fell and cannot recall if she hit her head. She is denying neck pain. She does have a mild headache. Patient is currently on Eliquis. Both of these images were negative for acute findings. CBC. Coagulation studies unremarkable. Creatinine slightly elevated at 1.41 and her previous creatinine was about 0.9. Sodium slightly at 130. AST slightly elevated at 65. Alkaline phosphatase 170. High-sensitivity troponin returned at 158 although the patient has not reported any chest pain to me. She did state that she has had some shortness of breath after questioning. Patient's lactic acid also came back at 4.1 and she does have a urinary tract infection. Although she does have a source of infection here she does not have an elevated white blood cell count and simply has a lactic acidosis. I will give her additional IV fluids due to the KAYLA and lactic acidosis and this will be rechecked. Since her troponin is elevated and she has an KAYLA I feel she needs to be admitted to the hospital. She is amenable to this. I spoke with the hospitalist who agreed. I did send a COVID PCR since she is leukopenic and lymphopenic. She requested some Zofran for nausea. Impression: 1. UTI 2. Febrile illness 3. Lactic acidosis 4. KAYLA 5. Leukopenia 6. Lymphopenia 7. Mechanical fall 8. Closed head injury Lab Data Labs: Laboratory Results - last 24 hr 11/22/21 11/22/21 11/22/21 13:23 13:23 13:23 WBC 2.9 L RBC 4.66 Hgb 12.9 Hct 39.0 MCV 83.7 MCH 27.7 MCHC 33.1 RDW Std Deviation 44.4 H RDW Coeff of Bebo 14.6 Plt Count 121 L MPV 11.0 Immature Gran % (Auto) 0.300 Neut % (Auto) 89.3 H Lymph % (Auto) 9.4 L [place] % (Auto) 0.7 Eos % (Auto) 0.0 Baso % (Auto) 0.3 Absolute Neuts (auto) 2.6 Absolute Lymphs (auto) 0.27 L Nucleated RBC % 0 Differential Comment SCANNED Diff Path Review October foll PT 18.6 H INR 1.6 APTT 33.5 Sodium 130 L Potassium 4.9 Chloride 97 L Carbon Dioxide 22.0 Anion Gap 11 BUN 27 H Creatinine 1.41 H Estim Creat Clear Calc 34.36 Est GFR (MDRD) Af Amer 48 L Est GFR (MDRD) Non-Af 39 L BUN/Creatinine Ratio 19.1 Glucose 358 H Lactic Acid Calcium 8.9 Total Bilirubin 1.00 AST 65 H ALT 33 Alkaline Phosphatase 170 H Troponin I High Sens 158 H* Total Protein 7.8 Albumin 2.8 L Globulin 5.0 H Albumin/Globulin Ratio 0.6 L Urine Color Urine Clarity Urine pH Ur Specific [place] Urine Protein Urine Glucose (UA) Urine Ketones Urine Occult Blood Urine Nitrite Urine Bilirubin Urine Urobilinogen Ur Leukocyte Esterase Urine RBC Urine WBC Ur Squamous Epith Cells Urine Bacteria Urine Mucus 11/22/21 11/22/21 13:45 14:25 WBC RBC Hgb Hct MCV MCH MCHC RDW Std Deviation RDW Coeff of Bebo Plt Count MPV Immature Gran % (Auto) Neut % (Auto) Lymph % (Auto) [place] % (Auto) Eos % (Auto) Baso % (Auto) Absolute Neuts (auto) Absolute Lymphs (auto) Nucleated RBC % Differential Comment Diff Path Review PT INR APTT Sodium Potassium Chloride Carbon Dioxide Anion Gap BUN Creatinine Estim Creat Clear Calc Est GFR (MDRD) Af Amer Est GFR (MDRD) Non-Af BUN/Creatinine Ratio Glucose Lactic Acid 4.1 H* Calcium Total Bilirubin AST ALT Alkaline Phosphatase Troponin I High Sens Total Protein Albumin Globulin Albumin/Globulin Ratio Urine Color Yellow Urine Clarity Cloudy Urine pH 6.0 Ur Specific [place] 1.020 Urine Protein 100 H Urine Glucose (UA) 250 H Urine Ketones 15 H Urine Occult Blood 250 H Urine Nitrite Negative Urine Bilirubin Negative Urine Urobilinogen Normal Ur Leukocyte Esterase 500 H Urine RBC 0 SEEN Urine WBC >100 SEEN Ur Squamous Epith Cells 0 SEEN Urine Bacteria 3+ Urine Mucus 0 SEEN Radiography Diagnostic Testing: Clinical Impression(s) from Imaging Studies Chest X-Ray 11/22/21 13:15 IMPRESSION: Normal x-ray examination of the chest. Electronically Signed: Dilan Solis MD at 14:30 EDT Reading Location ID and State: [place] / [place] Tel , Service support , Brain CT 11/22/21 13:36 IMPRESSION: Normal unenhanced CT scan of the brain. Electronically Signed: Dilan Solis MD at 15:34 EDT Reading Location ID and State: [id number] / [place] Tel , Service support , Cervical Spine CT 11/22/21 13:36 IMPRESSION: No acute fracture or subluxation. Electronically Signed: Dilan Solis MD at 15:43 EDT , Discharge Plan Triage Chief Complaint: Shortness of Breath ED Provider: Tyler Crespo Dx/Rx/DC Orders Primary Care Provider: Shayna Malhotra
[2021-11-22 13:43] LABS: Differential Indicated SCAN CRITERIA MET
[2021-11-22 13:52] LABS: International Normalized Ratio 1.6; Prothrombin Time (Protime)PT. 18.6 SECONDS (11.7-14.9)
[2021-11-22 13:53] LABS: Partial Thromboplast Time 33.5 Seconds (24.1-36.2)
[2021-11-22 13:58] LABS: ALB/GLOB Ratio 0.6 RATIO (0.9-2.4); AST(SGOT) 65 U/L (15-37); Alanine Aminotransfer ALT/SGPT 33 U/L (13-56); Albumin, Serum 2.8 g/dL (3.2-5.0); Alkaline Phosphatase 170 U/L (45-117); Anion Gap 11 (5-15); BUN 27 mg/dL (7-18); BUN/Creat Ratio 19.1 RATIO (10-20); Calcium,Total 8.9 mg/dL (8.5-10.1); Chloride 97 mmol/L (98-107); Creatinine, Serum 1.41 mg/dL (0.55-1.02); EST Glomerular Filtration Rate 39 mL/min (>60); Est Glom Filt Rate - Afr Amer 48 mL/min (>60); Estimated Creatinine Clearance 34.36 ml/min; Glucose 358 mg/dL (74-106); Potassium 4.9 mmol/L (3.5-5.1); Protein, Total 7.8 g/dL (6.4-8.2); Sodium Level 130 mmol/L (136-145); Troponin-I HS 158 pg/mL (3.0-54.0)
[2021-11-22] MEDS: 0.9% Normal Saline 1,000 ML 999 ML IV ×3 (14:00→16:29)
[2021-11-22 14:06] LABS: Differential Comment SCANNED
[2021-11-22 14:30] LABS: Lactic Acid 4.1 mmol/L (0.4-1.9)
[2021-11-22 14:37] LABS: Mucous, Urine 0 SEEN /hpf (<or=2+); Red Blood Cells-Urine 0 SEEN /hpf (0-5); Squamous Epithelial Cells - UA 0 SEEN /hpf (5-10)
[2021-11-22 14:46] LABS: Color, Urine Yellow (Yellow); Glucose, Dipstick 250 mg/dl (Normal); Ketone-Dipstick 15 mg/dl (Negative); Leukocyte Esterase-Dipstick 500 /ul (Negative); Nitrite-Dipstick Negative (Negative); Occult Blood-Urine 250 /ul (Negative); Protein-Dipstick 100 mg/dl (Negative); Urine Bilirubin Dipstick Negative (Negative); Urine Clarity Cloudy (Clear); Urine Urobilinogen Normal (Normal)
[2021-11-22 14:59] LABS: Bacteria 3+ /hpf (None Seen); White Blood Cells >100 SEEN /hpf (0-5)
--- NOTE | 2021-11-22 16:11 | HP.PCM.HOS_ITS ---
HPI - General General Date of Admission: 11/22/21 Date of Service: 11/22/21 Chief Complaint: Generalised weakness, fever - 2 days HPI Narrative RICK MILLER, is a 70 F who presents with the above. Patient is resident in an assisted living facility. She complains of generalized weakness ongoing for about 2 days. She missed her seat while sitting down and fell. She was unable to get up. She was found by the clinic today. She denied any fever or dysuria or lower abdominal pain. She denied any upper respiratory symptoms. She admits to a cough. Denied any sick contact. Patient is a general poor historian. She denied any chest pain or dizziness or palpitations. In the ED, her blood pressure was 142/53, heart rate was 132, respiratory to 26, temperature was 100.7F, SPO2 was 97% on room air. WBC count is 2.9, hemoglobin is 12.9, platelet count 121, sodium is 130, potassium 4.9, chloride 97, bicarbonate 22, BUN is 27, creatinine 1.41, glucose 358 troponin 274, AST 65, ALT 33, ALP 170. UA is cloudy, ketones positive, leukocyte Estrace 500, WBC, more than 100, 3+ bacteria Admitting chest x-ray is unremarkable. CT of the brain as well as cervical spine is unremarkable. FORMERLY [facility], [facility] Medical History (Updated 11/22/21 @ 18:08 by Pamela Ely) Anxiety Anxiety Bipolar 1 disorder Cancer Diabetes DVT (deep venous thrombosis) Former smoker history of broken heel left foot History of recurrent UTIs History of seizures Hyperlipidemia Hypertension Vitamin D deficiency Home Medications blood sugar diagnostic (FreeStyle Lite Strips) #150 ea 09/14/17 [Rx Last Taken Unknown] blood-glucose meter (FreeStyle Lite Meter) #1 ea 09/14/17 [Rx Last Taken Unknown] blood sugar diagnostic (FreeStyle Lite Strips) #100 ea 03/01/19 [Rx Last Taken Unknown] blood-glucose meter (FreeStyle Lite Meter) #1 ea 03/01/19 [Rx Last Taken Unkno wn] lancets 28 gauge (FreeStyle Lancets) #200 ea 03/01/19 [Rx Last Taken Unknown] clonazepam 0.5 mg tablet 0.5 mg PO Q8H PRN PRN panic attack(s) #90 tabs 06/25/20 [Rx Last Taken Unknown] lactobacillus combination no.9 4 billion cell capsule (Adult 50 Plus Probiotic) 4,000 mmu cells PO DAILY 06/25/20 [History Last Taken Unknown] acetaminophen 325 mg tablet (Tylenol) 650 mg PO Q4H PRN PRN Pain 07/30/21 [History Last Taken Unknown] guaifenesin 100 mg/5 mL oral liquid 200 mg PO Q4H PRN cough 07/30/21 [History Last Taken Unknown] atorvastatin 40 mg tablet 40 mg PO QHS 09/20/21 [History Last Taken Unknown] ergocalciferol (vitamin D2) 1,250 mcg (50,000 unit) capsule 50,000 unit PO Q14D 09/20/21 [History Last Taken Unknown] triamcinolone acetonide 0.1 % topical cream 1 applic topical Q12H PRN PRN Rash 09/20/21 [History Last Taken Unknown] Quetiapine Fumarate [Seroquel Xr] 600 mg PO QHS Check with primary doctor 11/22/21 [History Last Taken Unknown] apixaban 5 mg tablet (Eliquis) 5 mg PO BID 11/22/21 [History Last Taken Unknown] dulaglutide 1.5 mg/0.5 mL subcutaneous pen injector (Trulicity) 1.5 mg subcut QWEEK diabetes 11/22/21 [History Last Taken Unknown] insulin glargine 100 unit/mL (3 mL) subcutaneous pen (Lantus Solostar U-100 Insulin) 65 unit subcut QHS diabetes 11/22/21 [History Last Taken Unknown] insulin lispro 100 unit/mL subcutaneous pen (Humalog KwikPen (U-100) Insulin) See Protocol subcut TIDAC diabetes 11/22/21 [History Last Taken Unknown] lamotrigine 100 mg tablet 100 mg PO DAILY seizures 11/22/21 [History Last Taken Unknown] lisinopril 5 mg tablet 5 mg PO QDAY BP 11/22/21 [History Last Taken Unknown] miconazole nitrate 2 % topical powder 1 applic topical BID Check with primary doctor 11/22/21 [History Last Taken Unknown] Allergy/AdvReac Type Severity Reaction Status Date / Time ciprofloxacin [From Cipro] Allergy Mild Anaphylaxis Verified 11/22/21 13:10 ciprofloxacin HCl Allergy Anaphylaxis Verified 11/22/21 13:10 [From Cipro] Iodinated Contrast Media Allergy Rash Verified 11/22/21 13:10 [Iodinated Contrast Media - IV Dye] paliperidone [From Invega] Allergy Rash Verified 11/22/21 13:10 Penicillins Allergy RASH AND Verified 11/22/21 13:10 ITCHING red (food color) Allergy Hives Verified 11/22/21 13:10 red dye Allergy Hives Verified 11/22/21 13:10 Sulfa (Sulfonamide Allergy RASH AND Verified 11/22/21 13:10 Antibiotics) ITCHING metformin AdvReac Nausea/Vom/ Verified 11/22/21 13:10 Diarrhea shellfish derived AdvReac Nausea/Vom/ Verified 11/22/21 13:10 Diarrhea Family History Mother Diabetes Hypertension Heart disease Thyroid disorder Father CVA (cerebral vascular accident) Diabetes Brother Parkinson disease Thyroid disorder Lupus Alcoholism Blood clots in brain Grandfather Heart disease Asthma Surgical History unable to obtain unable to obtain (Patient is a poor informant) Social History Smoking Status: Former smoker Tobacco: How many years used: 45 how long ago did patient quit smokin11/2016 substance use type: does not use what type of physical activity do you participate in: none ROS ROS Narrative Constitutional: Reports: Malaise, Weakness, Fatigue, fever Denies: Anorexia, Night Sweats, Weight Change Eyes: Denies: Blurred vision, Cataracts, Conjunctivae Inflammation, Pain, Redness, Vision Change HEENT: Denies: Difficulty Hearing, Difficulty Swallowing, Head Aches, Hearing Changes, Sinus Congestion, Sinus Drainage Cardiovascular: Denies: Chest Pain, Orthopnea, Palpitations Respiratory: Denies: Cough, Shortness of breath at rest, Sputum production Gastrointestinal: Denies: Abdominal Pain, Nausea, Vomiting Genitourinary: Denies: Dysuria, frequency, hematuria, urgency Musculoskeletal: Denies: Joint Pain, Joint stiffness, Joint swelling, Joint Tenderness Skin: Denies: Rash, Wounds Neurological: Denies: Numbness, Tingling, Focal weakness Vital Signs Vital Signs Vital Signs: 11/22/21 13:00 11/22/21 13:23 11/22/21 13:23 Temperature 100.7 F H 100.7 F H Temperature Source Temporal Temporal Pulse Rate 132 H 124 H Respiratory Rate 26 H 26 H Respiratory Effort Respiratory Depth Respiratory Pattern Blood Pressure 142/53 H 142/53 H Blood Pressure Mean 82 82 Pulse Ox 97 95 Oxygen Delivery Method Room Air Room Air Room Air 11/22/21 13:30 11/22/21 13:41 11/22/21 14:45 Temperature 100.7 F H 99.1 F Temperature Source Temporal Oral Pulse Rate 114 H Respiratory Rate 26 H Respiratory Effort Normal Non-Labored Respiratory Depth Normal Respiratory Pattern Normal Blood Pressure 114/75 Blood Pressure Mean 88 Pulse Ox 94 Oxygen Delivery Method Room Air Room Air 11/22/21 14:45 11/22/21 14:45 11/22/21 15:00 Temperature 99.1 F 99.1 F 99.1 F Temperature Source Oral Oral Oral Pulse Rate 114 H 115 H Respiratory Rate 26 H 20 H Respiratory Effort Respiratory Depth Respiratory Pattern Blood Pressure 114/75 110/53 L Blood Pressure Mean 88 72 Pulse Ox 94 94 Oxygen Delivery Method Room Air Room Air Weight Weight: 140.1 kg Body Mass Index (BMI) 51.4 Physical Exam Narrative Physical exam: General: Alert, Oriented x3, Cooperative, morbidly obese HEENT: Atraumatic Oral: Dry mucosa Neck: Supple Lungs: Diminished to auscultation Cardiovascular: HS I+II, regular, no murmurs Abdomen: Bowel Sounds Present, Soft, Non Tender Extremities: Bilateral pedal edema trace -+1 Skin: No rashes, No breakdown Neurological: Grossly intact Psych/Mental Status: Appropriate Results Lab / Micro Data Result Diagrams: 11/22/21 13:23 11/22/21 13:23 Labs: Laboratory Results - last 24 hr 11/22/21 13:23: WBC 2.9 L, RBC 4.66, Hgb 12.9, Hct 39.0, MCV 83.7, MCH 27.7, MCHC 33.1, RDW Std Deviation 44.4 H, RDW Coeff of Bebo 14.6, Plt Count 121 L, MPV 11.0, Immature Gran % (Auto) 0.300, Neut % (Auto) 89.3 H, Lymph % (Auto) 9.4 L, [place] % (Auto) 0.7, Eos % (Auto) 0.0, Baso % (Auto) 0.3, Absolute Neuts (auto) 2.6, Absolute Lymphs (auto) 0.27 L, Nucleated RBC % 0, Differential Comment SCANNED, Diff Path Review May foll 11/22/21 13:23: PT 18.6 H, INR 1.6, APTT 33.5 11/22/21 13:23: Sodium 130 L, Potassium 4.9, Chloride 97 L, Carbon Dioxide 22.0, Anion Gap 11, BUN 27 H, Creatinine 1.41 H, Estim Creat Clear Calc 34.36, Est GFR (MDRD) Af Amer 48 L, Est GFR (MDRD) Non-Af 39 L, BUN/Creatinine Ratio 19.1, Glu cose 358 H, Calcium 8.9, Total Bilirubin 1.00, AST 65 H, ALT 33, Alkaline Phosphatase 170 H, Troponin I High Sens 158 H*, Total Protein 7.8, Albumin 2.8 L , Globulin 5.0 H, Albumin/Globulin Ratio 0.6 L 11/22/21 13:45: Lactic Acid 4.1 H* 11/22/21 14:25: Urine Color Yellow, Urine Clarity Cloudy, Urine pH 6.0, Ur Specific [place] 1.020, Urine Protein 100 H, Urine Glucose (UA) 250 H, Urine Ketones 15 H, Urine Occult Blood 250 H, Urine Nitrite Negative, Urine Bilirubin Negative, Urine Urobilinogen Normal, Ur Leukocyte Esterase 500 H, Urine RBC 0 SEEN, Urine WBC >100 SEEN, Ur Squamous Epith Cells 0 SEEN, Urine Bacteria 3+, Urine Mucus 0 SEEN Micro: Microbiology 11/22/21 14:25 Nasal Secretion SARS-CoV-2 & FLU Antigen (Rapid) - Final Radiology Impression Chest X-Ray 11/22/21 13:15 IMPRESSION: Normal x-ray examination of the chest. Electronically Signed: Dilan Solis MD at 14:30 EDT Reading Location ID and State: [id number] / [employer] , Service support , Brain CT 11/22/21 13:36 IMPRESSION: Normal unenhanced CT scan of the brain. Electronically Signed: Dilan Solis MD at 15:34 EDT Reading Location ID and State: [id number] / [employer] , Service support , Cervical Spine CT 11/22/21 13:36 IMPRESSION: No acute fracture or subluxation. Electronically Signed: Dilan Solis MD at 15:43 EDT , Assessment & Plan Assessment/Plan (1) Debility: (2) DM2 (diabetes mellitus, type 2): QUALIFIERS: Diabetes mellitus complication status: without complication (3) Lactic acidosis: (4) Elevated troponin I level: PLAN: Plan 1. KAYLA, pre-renal, secondary to dehydration, patient comes in with creatinine 1.41, baseline creatinine 0.9 We will continue IV fluids, repeat blood work in a.m. 2. Lactic acidosis, unlikely to be secondary to sepsis, admitting lactic acid 4.1, Will continue on IV fluids 3. Probable acute UTI, sepsis ruled out, patient denies any symptoms of UTI but urine sample was obtained in a sterile fashion Started on IV ceftriaxone in the ED, will continue same 4. Elevated troponin likely secondary to KAYLA Admitting EKG shows sinus tachycardia We will trend troponins 5. Recent acute PE, patient stated she has been compliant with Eliquis Not hypoxic, denies any chest pain Will continue with Eliquis 6. Type II DM, poorly controlled, patient presents with hyperglycemia Continue on home insulin regimen Check HbA1c 7. Seizure disorder, continue lamotrigine 8. Anxiety/depression/bipolar, continue Seroquel, Ativan as needed 9. Debility, acute on chronic, PT and OT to evaluate and treat Check magnesium and phosphorus 10. DVT PPx- on apixaban 11. I discussed and explained in details the various types of CODE STATUS-full code, DNR CCA, DNR CC. Patient cannot make up her mind on which option. She would think about it and let her treatment team know. Patient will remain full code for now Time spent discussing CODE STATUS 16 minutes Charges/Coding Visit Charges Inpatient E&M: 25376 Init Hosp L3 Procedures Hospitalists Procedures: 16304 Advncd Care Plan 30 Min
[2021-11-22] MEDS: Aspirin 325 MG Tablet PO (16:16)
[2021-11-22] MEDS: Ceftriaxone 1 GM/50 ML BAG IV (16:16)
[2021-11-22] MEDS: Ondansetron 4 MG/2 ML Vial IV (17:01)
[2021-11-22 17:07] LABS: Troponin-I HS 274 pg/mL (3.0-54.0)
--- NOTE | 2021-11-22 17:13 | NURSING ---
report called to ICU
[2021-11-22 18:01] LABS: Reflex Lactate? Y
[2021-11-22] MEDS: 0.9% Normal Saline 1,000 ML 100 ML IV (18:14)
[2021-11-22 18:56] LABS: Lactic Acid 2.7 mmol/L (0.4-1.9)
[2021-11-22 19:06] LABS: Magnesium 1.9 mg/dL (1.6-2.6); Phosphorus 2.3 mg/dL (2.5-4.9)
[2021-11-22 19:17] LABS: Hemoglobin A1c 10.2 % (3.8-5.6)
[2021-11-22 20:25] LABS: Troponin-I HS 217 pg/mL (3.0-54.0)
[2021-11-22] MEDS: QUEtiapine 100 MG Tablet 300 MG PO (22:05)
[2021-11-22] MEDS: APIXABAN 5 MG TABLET PO (22:05)
[2021-11-22] MEDS: Insulin Glargine-YFGN 100 UNIT/ML Pen 65 UNIT SC (22:05)
[2021-11-22] MEDS: Insulin Lispro 100 UNIT/ML INSULN.PEN SC (22:05)
[2021-11-22] MEDS: 0.9% Saline Lock 10 ML Syringe IV (22:07)
[2021-11-22 23:46] LABS: Bedside Glucose 382 mg/dL (74-106)
[2021-11-23] VITALS (11 sets, daily range): BP systolic 93–121; BP diastolic 56–73; PULSE 97–110; RESP 17–20; TEMP 36.9–37.9; O2SAT 92–99
[2021-11-23] MEDS: 0.9% Normal Saline 1,000 ML 100 ML IV (04:40)
[2021-11-23 04:47] LABS: Absolute Neutrophil Count 6.8 X10^3/uL (2.0-7.7); Basophil# 0.02 X10^3/uL; Basophil% 0.2 % (0-1); Eosinophil# 0.01 X10^3/uL; Eosinophils% 0.1 % (0-5); Hematocrit 34.2 % (37-47); Hemoglobin 11.2 g/dL (12.0-15.0); Lymphocyte % 12.3 % (19-41); Mean Corp Hgb Conc 32.7 g/dL (32-36); Mean Corpuscular Hgb 27.6 pg (27.0-32.0); Mean Corpuscular Volume 84.2 fL (81-99); Mean Platelet Vol. 11.7 fl (6.2-12.0); Monocyte# 0.93 X10^3/uL; Monocyte% 10.4 % (0-10); NRBC Flagged by Analyzer 0 % (0-5); Neutrophil # 6.82 X10^3/uL (2.7-7.7); Neutrophil % 76.3 % (47-70); Platelet Count 108 K/mm3 (150-450); RBC Distribution Width CV 14.6 % (11.6-14.6); RBC Distribution Width SD 45.4 fl (35.1-43.9); Red Blood Count 4.06 M/mm3 (4.2-5.4); White Blood Count 8.9 K/mm3 (4.4-11.0)
[2021-11-23 05:15] LABS: ALB/GLOB Ratio 0.6 RATIO (0.9-2.4); AST(SGOT) 56 U/L (15-37); Alanine Aminotransfer ALT/SGPT 34 U/L (13-56); Albumin, Serum 2.4 g/dL (3.2-5.0); Alkaline Phosphatase 90 U/L (45-117); Anion Gap 7 (5-15); BUN 27 mg/dL (7-18); BUN/Creat Ratio 24.1 RATIO (10-20); Calcium,Total 7.9 mg/dL (8.5-10.1); Chloride 101 mmol/L (98-107); Creatinine, Serum 1.12 mg/dL (0.55-1.02); EST Glomerular Filtration Rate 51 mL/min (>60); Est Glom Filt Rate - Afr Amer 62 mL/min (>60); Estimated Creatinine Clearance 43.26 ml/min; Globulin 4.2 g/dL (2.2-4.2); Glucose 249 mg/dL (74-106); Protein, Total 6.6 g/dL (6.4-8.2); Sodium Level 131 mmol/L (136-145)
[2021-11-23] MEDS: Insulin Lispro 100 UNIT/ML INSULN.PEN SC ×4 (08:20→22:47)
[2021-11-23] MEDS: 0.9% Saline Lock 10 ML Syringe IV (08:21)
[2021-11-23] MEDS: Acetaminophen 325 MG Tablet 650 MG PO ×2 (08:24→20:32)
[2021-11-23 08:25] LABS: Bedside Glucose 233 mg/dL (74-106)
--- NOTE | 2021-11-23 08:38 | PCM.PN.HOSP ---
Subjective Subjective Follow-up for debility/KAYLA/UTI: Patient was seen and examined. No acute events overnight. Still running low-grade fevers. She complained of generalized ache. Rapid COVID and COVID-19 PCR have been negative. Urine cultures are pending. Objective Data Objective Data Vital Signs: Vital Signs Temp Pulse Resp BP Pulse Ox 100.3 F H 102 H 18 113/56 L 96 11/23/21 04:00 11/23/21 07:43 11/23/21 04:00 11/23/21 04:00 11/23/21 04:00 Oxygen Delivery Method Room Air Weight: 141.6 kg Body Mass Index (BMI) 51.5 Intake & Output: Intake and Output for Last 24 Hours 11/21/21 11/22/21 11/23/21 23:59 23:59 23:59 Intake Total 3230 / 3470 1939 / 0 Balance 3230 / 3470 1939 / 1939 Lab / Micro Data Result Diagrams: 11/23/21 04:40 11/23/21 04:40 Labs: Laboratory Results - last 24 hr 11/22/21 13:23: WBC 2.9 L, RBC 4.66, Hgb 12.9, Hct 39.0, MCV 83.7, MCH 27.7, MCHC 33.1, RDW Std Deviation 44.4 H, RDW Coeff of Bebo 14.6, Plt Count 121 L, MPV 11.0, Immature Gran % (Auto) 0.300, Neut % (Auto) 89.3 H, Lymph % (Auto) 9.4 L, [place] % (Auto) 0.7, Eos % (Auto) 0.0, Baso % (Auto) 0.3, Absolute Neuts (auto) 2.6, Absolute Lymphs (auto) 0.27 L, Nucleated RBC % 0, Differential Comment SCANNED, Diff Path Review October foll 11/22/21 13:23: PT 18.6 H, INR 1.6, APTT 33.5 11/22/21 13:23: Sodium 130 L, Potassium 4.9, Chloride 97 L, Carbon Dioxide 22.0, Anion Gap 11, BUN 27 H, Creatinine 1.41 H, Estim Creat Clear Calc 34.36, Est GFR (MDRD) Af Amer 48 L, Est GFR (MDRD) Non-Af 39 L, BUN/Creatinine Ratio 19.1, Glucose 358 H, Calcium 8.9, Total Bilirubin 1.00, AST 65 H, ALT 33, Alkaline Phosphatase 170 H, Troponin I High Sens 158 H*, Total Protein 7.8, Albumin 2.8 L, Globulin 5.0 H, Albumin/Globulin Ratio 0.6 L 11/22/21 13:23: Hemoglobin A1c 10.2 H 11/22/21 13:23: Phosphorus 2.3 L, Magnesium 1.9 11/22/21 13:45: Lactic Acid 4.1 H* 11/22/21 14:25: Urine Color Yellow, Urine Clarity Cloudy, Urine pH 6.0, Ur Specific Thornton 1.020, Urine Protein 100 H, Urine Glucose (UA) 250 H, Urine Ketones 15 H, Urine Occult Blood 250 H, Urine Nitrite Negative, Urine Bilirubin Negative, Urine Urobilinogen Normal, Ur Leukocyte Esterase 500 H, Urine RBC 0 SEEN, Urine WBC >100 SEEN, Ur Squamous Epith Cells 0 SEEN, Urine Bacteria 3+, Urine Mucus 0 SEEN 11/22/21 16:25: Troponin I High Sens 274 H* 11/22/21 16:30: COVID-19 (SALLY) Not Detected 11/22/21 18:20: Lactic Acid 2.7 H* 11/22/21 19:40: Troponin I High Sens 217 H* 11/22/21 22:02: POC Glucose 382 H 11/23/21 04:40: WBC 8.9, RBC 4.06 L, Hgb 11.2 L, Hct 34.2 L, MCV 84.2, MCH 27.6, MCHC 32.7, RDW Std Deviation 45.4 H, RDW Coeff of Bebo 14.6, Plt Count 108 L, MPV 11.7, Immature Gran % (Auto) 0.700, Neut % (Auto) 76.3 H, Lymph % (Auto) 12.3 L, [place] % (Auto) 10.4 H, Eos % (Auto) 0.1, Baso % (Auto) 0.2, Absolute Neuts (auto) 6.8, Absolute Lymphs (auto) 1.10, Nucleated RBC % 0 11/23/21 04:40: Sodium 131 L, Potassium 4.0, Chloride 101, Carbon Dioxide 23.0, Anion Gap 7, BUN 27 H, Creatinine 1.12 H, Estim Creat Clear Calc 43.26, Est GFR (MDRD) Af Amer 62, Est GFR (MDRD) Non-Af 51 L, BUN/Creatinine Ratio 24.1 H, Glucose 249 H, Calcium 7.9 L, Total Bilirubin 0.50, AST 56 H, ALT 34, Alkaline Phosphatase 90, Total Protein 6.6, Albumin 2.4 L, Globulin 4.2, Albumin/Globulin Ratio 0.6 L 11/23/21 08:19: POC Glucose 233 H Micro: Microbiology 11/22/21 14:10 Blood Culture (Wb) - Venous Blood Culture - Preliminary 11/22/21 13:45 Blood Culture (Wb) - Anticubital Left Blood Culture - Preliminary 11/22/21 14:25 Nasal Secretion SARS-CoV-2 & FLU Antigen (Rapid) - Final Radiography Diagnostic Testing: Radiology Impression Chest X-Ray 11/22/21 13:15 IMPRESSION: Normal x-ray examination of the chest. Electronically Signed: Dilan Solis MD at 14:30 EDT Reading Location ID and State: [employer] [facility] [employer] , Service support , Brain CT 11/22/21 13:36 IMPRESSION: Normal unenhanced CT scan of the brain. Electronically Signed: Dilan Solis MD at 15:34 EDT Reading Location ID and State: [place] Tel , Service support , Cervical Spine CT 11/22/21 13:36 IMPRESSION: No acute fracture or subluxation. Electronically Signed: Dilan Solis MD at 15:43 EDT Reading Location ID and State: [employer] [facility] [employer] , Service support , Physical Exam Narrative Physical exam: General: Alert, Oriented x3, Cooperative, morbidly obese HEENT: Atraumatic Oral: Moist mucosa Neck: Supple Lungs: Diminished to auscultation Cardiovascular: HS I+II, regular, no murmurs Abdomen: Bowel Sounds Present, Soft, Non Tender Extremities: Bilateral pedal edema trace Skin: No rashes, No breakdown Neurological: Grossly intact Psych/Mental Status: Appropriate Assessment & Plan Assessment/Plan (1) Debility: (2) DM2 (diabetes mellitus, type 2): QUALIFIERS: Diabetes mellitus complication status: without complication (3) Lactic acidosis: (4) Elevated troponin I level: PLAN: Plan 1. KAYLA, pre-renal, secondary to dehydration, slowly improving Creatinine currently 1.12 from admitting creatinine of 1.41, Baseline creatinine 0.9 Decrease IV fluid rate to 75 mils an hour, repeat blood work in a.m. 2. Lactic acidosis, unclear etiology for now, Admitting lactic acid 4.1, repeat lactic acid was 2.7 Will continue on IV fluids 3. Probable acute UTI, patient still with low-grade fever Urine and blood cultures are pending. No leukocytosis Continue IV ceftriaxone 4. Elevated troponin likely secondary to KAYLA Troponins went from [phone] Admitting EKG shows sinus tachycardia Will obtain 2D echo 5. Recent acute PE, patient stated she has been compliant with Eliquis Not hypoxic, denies any chest pain Will continue with Eliquis 6. Hypophosphatemia/hypomagnesemia, replaced, recheck in a.m. 7. Type II DM, poorly controlled, HbA1c is 10.7 Increase Lantus to 70 units nightly, continue insulin sliding scale 7. Seizure disorder, continue lamotrigine 8. Anxiety/depression/bipolar, continue Seroquel, Ativan as needed 9. Debility, acute on chronic, PT and OT to evaluate and treat 10. DVT PPx- on apixaban Charges/Coding Visit Charges Inpatient E&M: 94182 Subs Hosp L2
--- NOTE | 2021-11-23 09:10 | ECHOCS_ITS ---
Reason For Study: OTHER Procedure This was a 2D Doppler, Color Flow transthoracic echocardiogram. The study was technically difficult. Contrast injection was performed. Patient scanned in supine position. Exam performed portable in ICU/CCU. Left Ventricle Normal LV size. Left ventricular systolic function is normal. The estimated ejection fraction is 65 %. No regional wall motion abnormalities noted. Right Ventricle Normal RV size. Normal systolic function. Atria Normal left atrium. Normal right atrium. Mitral Valve There is mild to moderate mitral annular calcification. Tricuspid Valve Normal tricuspid valve. Mild to moderate (1-2+) tricuspid valve insufficiency. Pulmonary artery systolic pressure is 30 mmHg. Aortic Valve Trisinus/trileaflet aortic valve. Mild focal aortic valve calcification. Pulmonic Valve Normal pulmonic valve. Great Vessels Normal aortic root. The pulmonary artery is normal size. Normal inferior vena cava. Pericardium/Pleural No pericardial effusion. Medication Diluted definity 1ml given slow IV push to enhance endocardial definition. MMode/2D Measurements & Calculations SV(MOD-sp4): 52.6 ml SV(sp4-el): 55.7 ml LVAd ap4: 34.3 cm2 LVLd ap4: 8.2 cm EDV(MOD-sp4): 117.2 ml EDV(sp4-el): 122.6 ml LVAs ap4: 23.4 cm2 LVLs ap4: 6.9 cm ESV(MOD-sp4): 64.6 ml ESV(sp4-el): 66.9 ml EF(MOD-sp4): 44.9 % EF(sp4-el): 45.4 % Doppler Measurements & Calculations MV E max kentrell: 113.4 cm/sec MV V2 max: 133.9 cm/sec MV P1/2t max kentrell: 126.2 cm/sec MV A max kentrell: 119.3 cm/sec MV max P.2 mmHg MV P1/2t: 48.2 msec MV E/A: 0.95 MV V2 mean: 97.1 cm/sec MV mean P.1 mmHg MV dec slope: 767.1 cm/sec2 MV V2 VTI: 28.3 cm MVA(P1/2t): 4.6 cm2 Ao V2 max: 197.4 cm/sec LV V1 max: 116.3 cm/sec TR max kentrell: 259.5 cm/sec Ao max P.6 mmHg LV V1 max P.4 mmHg TR max P.0 mmHg Ao V2 mean: 129.7 cm/sec Ao mean P.6 mmHg Ao V2 VTI: 35.1 cm ECHO/Echo Complete W/ Contrast Interpretation Summary Normal LV size. Left ventricular systolic function is normal. The estimated ejection fraction is 65 %. There is mild to moderate mitral annular calcification. Mild focal aortic valve calcification. Contrast injection was performed. Ordering Physician: Marjorie Gutiérrez Referring Physician: Shayna Malhotra M.D. Performed By: Carlita Epstein RCS
[2021-11-23] MEDS: Ceftriaxone 1 GM/50 ML BAG IV (09:21)
[2021-11-23] MEDS: Na Biphos/Potassium Phosphate PACKET 1 PACKET PO ×4 (10:01→22:45)
[2021-11-23] MEDS: APIXABAN 5 MG TABLET PO ×2 (10:02→22:45)
[2021-11-23] MEDS: lamoTRIgine 100 MG Tablet PO (10:02)
[2021-11-23] MEDS: QUEtiapine 100 MG Tablet 300 MG PO ×2 (10:02→22:45)
[2021-11-23 12:35] LABS: Bedside Glucose 328 mg/dL (74-106)
--- NOTE | 2021-11-23 12:38 | CASEMGMT ---
Social Work Consult: [facility] placement Referral source: self referral due to above. Met with patient in room. Introduced self and social work instructor role. Patient agreeable to speak with this social work instructor. This social work instructor broached topic of [facility]ci placement. Patient is currently living at [facility] that is affiliated with [facility] ([facility]). Patient reports desire to transition to [facility] for skilled services and then transition back to assisted living. Patient declines for list of in-network nursing facilities. [facility] is in-network with patient insurance. This social work instructor inquired as to support person for patient. Patient identifies sonEstrada as main contact and that medical team is able to reach out to Estrada if you can get in contact with him. Telephone call to Exchange ConsultantConstance. Constance to make referral to [facility]. Telephone call to patient sonEstrada. No answer. no voicemail set up. PLAN: [facility] placement, skilled. Pending [facility]. Will continue to follow. Romain JUNIOR, JOSE GUADALUPES
--- NOTE | 2021-11-23 12:43 | CASEMGMT ---
Discharge Seamless Hosiery Knitter Called Renita at [facility]. Beds are available. Faxed over referral. Will follow up. Constance Bustamante Discharge Seamless Hosiery Knitter
[2021-11-23 13:35] LABS: Pathologist Review Reviewed
--- NOTE | 2021-11-23 13:36 | CASEMGMT ---
Addendum entered by Constance Bustamante 11/23/21 15:17: ELVIN Del Cid said D/C date should be tomorrow. Constance D/c Iron Caster called Renita and notified her. Renita will start Pre-cert. Constance Bustamante Discharge Green Material Value Added Assessor Original Note: Discharge Green Material Value Added Assessor Renita from [facility] has reached out via email. [facility] can accept patient. ELVIN Del Cid has been notified. D/C Iron Caster Constance or ELVIN Del Cid will notify [facility] on D/c and when to start precert. Constance Bustamante Discharge Green Material Value Added Assessor
[2021-11-23 17:11] LABS: Bedside Glucose 344 mg/dL (74-106)
[2021-11-23] MEDS: 0.9% Normal Saline 1,000 ML 75 ML IV (17:56)
[2021-11-23] MEDS: Atorvastatin Calcium 40 MG Tablet PO (22:45)
[2021-11-23] MEDS: Insulin Glargine-YFGN 100 UNIT/ML Pen 70 UNIT SC (22:46)
[2021-11-23 23:00] LABS: Bedside Glucose 393 mg/dL (74-106)
[2021-11-24] VITALS (7 sets, daily range): BP systolic 111–147; BP diastolic 61–82; PULSE 81–100; RESP 15–18; TEMP 36.6–36.9; O2SAT 93–95
[2021-11-24] MEDS: 0.9% Normal Saline 1,000 ML 75 ML IV (05:34)
[2021-11-24] MEDS: Acetaminophen 325 MG Tablet 650 MG PO ×2 (05:36→18:01)
[2021-11-24 05:50] LABS: Absolute Lymphocyte Count 1.01 X10^3/uL (0.83-4.51); Absolute Neutrophil Count 3.8 X10^3/uL (2.0-7.7); Basophil# 0.02 X10^3/uL; Basophil% 0.4 % (0-1); Eosinophil# 0.13 X10^3/uL; Eosinophils% 2.3 % (0-5); Hematocrit 32.6 % (37-47); Lymphocyte # 1.01 X10^3/ul (0.83-4.51); Lymphocyte % 17.9 % (19-41); Mean Corp Hgb Conc 33.7 g/dL (32-36); Mean Corpuscular Hgb 28.1 pg (27.0-32.0); Mean Corpuscular Volume 83.4 fL (81-99); Mean Platelet Vol. 11.4 fl (6.2-12.0); Monocyte# 0.68 X10^3/uL; Monocyte% 12.1 % (0-10); NRBC Flagged by Analyzer 0 % (0-5); Neutrophil # 3.76 X10^3/uL (2.7-7.7); Neutrophil % 66.8 % (47-70); Platelet Count 107 K/mm3 (150-450); RBC Distribution Width CV 14.9 % (11.6-14.6); RBC Distribution Width SD 45.1 fl (35.1-43.9); Red Blood Count 3.91 M/mm3 (4.2-5.4); White Blood Count 5.6 K/mm3 (4.4-11.0)
[2021-11-24] MEDS: Insulin Lispro 100 UNIT/ML INSULN.PEN SC ×3 (06:15→16:18)
[2021-11-24 06:30] LABS: Bedside Glucose 320 mg/dL (74-106)
[2021-11-24 06:36] LABS: ALB/GLOB Ratio 0.5 RATIO (0.9-2.4); AST(SGOT) 49 U/L (15-37); Alanine Aminotransfer ALT/SGPT 33 U/L (13-56); Albumin, Serum 2.2 g/dL (3.2-5.0); Alkaline Phosphatase 116 U/L (45-117); Anion Gap 6 (5-15); BUN 23 mg/dL (7-18); BUN/Creat Ratio 24.3 RATIO (10-20); Calcium,Total 8.5 mg/dL (8.5-10.1); Chloride 105 mmol/L (98-107); Creatinine, Serum 0.94 mg/dL (0.55-1.02); EST Glomerular Filtration Rate 62 mL/min (>60); Est Glom Filt Rate - Afr Amer 76 mL/min (>60); Estimated Creatinine Clearance 51.54 ml/min; Globulin 4.4 g/dL (2.2-4.2); Glucose 321 mg/dL (74-106); Magnesium 2.3 mg/dL (1.6-2.6); Potassium 4.2 mmol/L (3.5-5.1); Protein, Total 6.6 g/dL (6.4-8.2); Sodium Level 133 mmol/L (136-145)
[2021-11-24 06:47] LABS: Phosphorus 3.5 mg/dL (2.5-4.9)
[2021-11-24] MEDS: QUEtiapine 100 MG Tablet 300 MG PO (08:37)
[2021-11-24] MEDS: APIXABAN 5 MG TABLET PO (08:37)
[2021-11-24] MEDS: lamoTRIgine 100 MG Tablet PO (08:38)
[2021-11-24] MEDS: Ceftriaxone 1 GM/50 ML BAG IV (08:49)
--- NOTE | 2021-11-24 10:45 | CASEMGMT ---
Discharge Iv Therapy Nurse Renita from [facility] got pre-cert back today. Patient can go when medically ready. Kylee notified. Constance Bustamante Discharge Iv Therapy Nurse
--- NOTE | 2021-11-24 10:45 | PCM.TXEXTCAR ---
Diet 11/22/21 17:21 Diet: Cardiac: Calorie-Controlled Food consistency:: Regular Liquid Consistency:: Regular/Thin How many daily calories?: 1800 calorie Routine Orders/Code Status Suppository Type: Dulcolax 10mg Suppository Frequency: Daily PRN Keep PO Greater than or Equal to (%): 94 Routine Lab Work: CBC (within 3 days) and - (CMP within 3 days) Code Status: Full Code Therapies Weight Bearing: Weight bearing as tolerated Physical Therapy: Eval and Treat Occupational Therapy: Eval and Treat Problem/Diagnosis (1) Debility: Status: Acute (2) DM2 (diabetes mellitus, type 2): Status: Chronic (3) Lactic acidosis: Status: Acute (4) Elevated troponin I level: Status: Acute Allergies/Procedures Done in Hospital Allergies ciprofloxacin [From Cipro] Allergy (Mild, Verified 11/22/21 13:10) Anaphylaxis ciprofloxacin HCl [From Cipro] Allergy (Verified 11/22/21 13:10) Anaphylaxis Iodinated Contrast Media [Iodinated Contrast Media - IV Dye] Allergy (Verified 11/22/21 13:10) Rash paliperidone [From Invega] Allergy (Verified 11/22/21 13:10) Rash Penicillins Allergy (Verified 11/22/21 13:10) RASH AND ITCHING red (food color) Allergy (Verified 11/22/21 13:10) Hives red dye Allergy (Verified 11/22/21 13:10) Hives Sulfa (Sulfonamide Antibiotics) Allergy (Verified 11/22/21 13:10) RASH AND ITCHING metformin Adverse Reaction (Verified 11/22/21 13:10) Nausea/Vom/Diarrhea shellfish derived Adverse Reaction (Verified 11/22/21 13:10) Nausea/Vom/Diarrhea Procedures: 2-D Echocardiogram Type of Care/Length of Stay Estimated LOS: Convalescent Care Less Than 30 days Type of Care Needed: Skilled Rehab Potential: Good Prognosis: Good Additional Orders/Day of Discharge Day of Discharge: 11/24/21 Dietary and Speech Recommendations Dietitian Recommendations/Changes: Will continue 1800 Calorie Controlled / Cardiac diet Discharge Plan Admission Admit Date/Time: 11/22/21 16:04 Primary Reason for Your Visit: Debility/KAYLA Attending Provider: Marjorie Gutiérrez Primary Care Provider: Shayna Malhotra Discharge Orders/Prescriptions Prescriptions: New quetiapine 100 mg Tablet 300 mg PO BID Qty: 0 0RF nystatin [Nyamyc] 100,000 unit/gram Powder 1 applic topical TID Qty: 0 0RF Eliquis 5 mg Tablet 5 mg PO BID Qty: 0 0RF insulin glargine-yfgn 100 unit/mL (3 mL) Insulin Pen 75 unit subcut QHS Qty: 0 0RF Continued Adult 50 Plus Probiotic 4 billion cell capsule 4,000 mmu cells PO DAILY Rx Instructions: administer with a meal clonazepam 0.5 mg tablet 0.5 mg PO Q8H PRN PRN (Reason: panic attack(s)) Qty: 90 0RF guaifenesin 100 mg/5 mL liquid 200 mg PO Q4H PRN (Reason: cough) acetaminophen [Tylenol] 325 mg tablet 650 mg PO Q4H PRN PRN (Reason: Pain) ergocalciferol (vitamin D2) 1,250 mcg (50,000 unit) Capsule 50,000 unit PO Q14D Rx Instructions: Take every 2 weeks on Mondays atorvastatin 40 mg tablet 40 mg PO QHS triamcinolone acetonide 0.1 % Cream 1 applic TOPICAL Q12H PRN PRN (Reason: Rash) Rx Instructions: lower leg miconazole nitrate 2 % powder 1 applic TOPICAL BID lamotrigine 100 MG tablet 100 mg PO DAILY insulin lispro [Humalog KwikPen Insulin] 100 unit/mL insulin pen See Protocol subcut TIDAC Protocol: 3. Sliding Scale Insulin Med Dosing Condition: 150-189 mg/dl = 1 unit Condition: 190-229 mg/dl = 2 units Condition: 230-269 mg/dl = 3 units Condition: 270-309 mg/dl = 4 units Condition: 310-349 mg/dl = 5 units Condition: 350-399 mg/dl = 6 units Condition: 400-449 mg/dl = 7 units Condition: Greater than 449 call physician Protocol Text: - Use for Total Daily Dose of Insulin 37-55 units - Obsese, infected, or steroid patients MEDIUM DOSING ALGORITHIM Rx Instructions: sliding scale Trulicity 1.5 mg/0.5 mL pen injector 1.5 mg SC QWEEK Rx Instructions: Every Tuesday Discontinued Eliquis 5 mg tablet 5 mg PO BID Taper: Apixaban VTE Treatment 10 mg TWICE A DAY for 6 Days and 0 Hour 5 mg TWICE A DAY for 180 Days and 0 Hour Rx Instructions: 10 mg twice daily, last dose 09/27/2021 pm dose and then start 5 mg twice daily to continue for 6 months insulin glargine [Lantus Solostar U-100 Insulin] 100 unit/mL (3 mL) insulin pen 65 unit SC QHS Rx Instructions: Hold if glucose less than 130 mg/dl Quetiapine Fumarate [Seroquel Xr] 300 MG Tab.Sr.24h 600 mg PO QHS No Action lisinopril 5 mg tablet 5 mg PO QDAY (DME) FreeStyle Lite Strips Strip See Rx Instructions MISCELLANEOUS Rx Instructions: check blood glucose daily for type 2 DM (DME) blood-glucose meter [FreeStyle Lite Meter] Kit See Rx Instructions MISCELLANEOUS Rx Instructions: As directed, check blood glucose daily for type 2 DM (DME) lancets [FreeStyle Lancets] 28 gauge misc See Rx Instructions MISCELLANEOUS Rx Instructions: check blood glucose daily for type 2 DM Referrals / Follow Up: Shayna Malhotra MD [Primary Care Provider] - Disposition Disposition (needs filled in before D/C Order can be placed): [facility]
--- NOTE | 2021-11-24 10:53 | DS.PCM_ITS ---
Providers Date of Admission: 11/22/21 Date of Discharge: 11/24/21 Primary Care Physician: Dr. Shayna Malhotra MD Reason For Visit: DEBILITY/KAYLA Diagnosis Discharge Diagnosis (1) Debility: Status: Acute Code(s): R53.81 - Other malaise (2) DM2 (diabetes mellitus, type 2): Status: Chronic Code(s): E11.9 - Type 2 diabetes mellitus without complications Qualifiers: Diabetes mellitus complication status: without complication (3) Lactic acidosis: Status: Acute Code(s): E87.2 - Acidosis (4) Elevated troponin I level: Status: Acute Code(s): R77.8 - Other specified abnormalities of plasma proteins Medications at Discharge Home Medications clonazepam 0.5 mg tablet 0.5 mg PO Q8H PRN PRN panic attack(s) #90 tabs 06/25/20 lactobacillus combination no.9 4 billion cell capsule (Adult 50 Plus Probiotic) 4,000 mmu cells PO DAILY 06/25/20 acetaminophen 325 mg tablet (Tylenol) 650 mg PO Q4H PRN PRN Pain 07/30/21 guaifenesin 100 mg/5 mL oral liquid 200 mg PO Q4H PRN cough 07/30/21 ergocalciferol (vitamin D2) 1,250 mcg (50,000 unit) capsule 50,000 unit PO Q14D suuplement 09/20/21 triamcinolone acetonide 0.1 % topical cream 1 applic topical Q12H PRN PRN Rash 09/20/21 dulaglutide 1.5 mg/0.5 mL subcutaneous pen injector (Trulicity) 1.5 mg subcut QWEEK diabetes 11/22/21 insulin lispro 100 unit/mL subcutaneous pen (Humalog KwikPen (U-100) Insulin) See Protocol subcut TIDAC diabetes 11/22/21 lamotrigine 100 mg tablet 100 mg PO DAILY seizures 11/22/21 lisinopril 5 mg tablet 5 mg PO QDAY BP 11/22/21 miconazole nitrate 2 % topical powder 1 applic topical BID Check with primary doctor 11/22/21 blood sugar diagnostic (FreeStyle Lite Strips) 11/23/21 blood-glucose meter (FreeStyle Lite Meter) 11/23/21 lancets 28 gauge (FreeStyle Lancets) 11/23/21 apixaban 5 mg tablet (Eliquis) 5 mg PO BID #0 tabs 11/24/21 cefdinir 300 mg capsule 300 mg PO BID 5 days #10 caps 11/24/21 insulin glargine-yfgn 100 unit/mL (3 mL) subcutaneous pen 75 unit (0.75 mL) subcut QHS #0 mL 11/24/21 nystatin 100,000 unit/gram topical powder (Nyamyc) 1 applic topical TID #0 grams 11/24/21 quetiapine 100 mg tablet 300 mg PO BID #0 tabs 11/24/21 Hospital Course Operations None Procedures 2-D Echocardiogram Summary of Care Provided Minutes Spent on Discharge: 40 Hospital Course: 70-year-old for male with past medical history of recent PE, on Eliquis, resident in assisted living facility, who comes in with generalized weakness ongoing for about 2 days. She stated that she had been feeling weak and missed her seat. She fell down and was sitting down on the floor. She was found by the machine heddle cleaner and was helped up. Patient denied any fever or chills or dizziness or palpitations. Her work-up in the ED including CT of the brain as well as CT of the cervical spine was unremarkable. Her admitting blood work was essentially stable except for creatinine of 1.41, her baseline is 0.9. Patient also had lactic acidosis with lactic acid of 4.1. She has evidence of acute UTI from UA. Patient was awake and denied any symptoms. Her urine however was obtained by a clean-catch, using a straight catch. Patient was started on empiric IV ceftriaxone from the ED. Her urine cultures grew E. coli. Blood cultures grew GNR. She was continued on IV ceftriaxone. Patient was discharged on 5 more days of cefdinir. With her persistent complaints of generalized aches. COVID-19 rapid antigen and PCR were negative. Patient had CPK checked and that was 500. She was taking off his statins. She needs to have repeat CPK in the assisted within a week and possibly have resumption of her statin at a lower dose. Patient's blood sugar was uncontrolled during this hospital stay. Her Lantus was increased to 75 units daily. She was also managed on insulin sliding scale. Patient was discharged on this. Physical Exam Narrative Physical exam: General: Alert, Oriented x3, Cooperative, morbidly obese HEENT: Atraumatic Oral: Moist mucosa Neck: Supple Lungs: Diminished to auscultation Cardiovascular: HS I+II, regular, no murmurs Abdomen: Bowel Sounds Present, Soft, Non Tender Extremities: Bilateral pedal edema trace Skin: No rashes, No breakdown Neurological: Grossly intact Psych/Mental Status: Appropriate Weight / BMI Weight Weight: 141.6 kg Body Mass Index (BMI) 51.5 ABG / Lab / Microbiology Data Result Diagrams: 11/24/21 05:34 11/24/21 05:34 Laboratory: Laboratory Results - last 24 hr 11/22/21 13:23: Diff Path Review Reviewed 11/23/21 12:29: POC Glucose 328 H 11/23/21 17:04: POC Glucose 344 H 11/23/21 22:43: POC Glucose 393 H 11/24/21 05:34: WBC 5.6, RBC 3.91 L, Hgb 11.0 L, Hct 32.6 L, MCV 83.4, MCH 28.1, MCHC 33.7, RDW Std Deviation 45.1 H, RDW Coeff of Bebo 14.9 H, Plt Count 107 L, MPV 11.4, Immature Gran % (Auto) 0.500, Neut % (Auto) 66.8, Lymph % (Auto) 17.9 L, [place] % (Auto) 12.1 H, Eos % (Auto) 2.3, Baso % (Auto) 0.4, Absolute Neuts (auto) 3.8, Absolute Lymphs (auto) 1.01, Nucleated RBC % 0 11/24/21 05:34: Sodium 133 L, Potassium 4.2, Chloride 105, Carbon Dioxide 22.0, Anion Gap 6, BUN 23 H, Creatinine 0.94, Estim Creat Clear Calc 51.54, Est GFR (MDRD) Af Amer 76, Est GFR (MDRD) Non-Af 62, BUN/Creatinine Ratio 24.3 H, Glucose 321 H, Calcium 8.5, Magnesium 2.3, Total Bilirubin 0.40, AST 49 H, ALT 33, Alkaline Phosphatase 116, Total Protein 6.6, Albumin 2.2 L, Globulin 4.4 H, Albumin/Globulin Ratio 0.5 L 11/24/21 05:34: Phosphorus 3.5 11/24/21 06:14: POC Glucose 320 H Microbiology: Microbiology 11/22/21 14:10 Blood Culture (Wb) - Venous Blood Culture - Preliminary Gram negative jamaal 11/22/21 13:45 Blood Culture (Wb) - Anticubital Left Blood Culture - Prel iminary Gram negative jamaal 11/22/21 14:25 Urine Catheter - Catheter Urine Culture - Final Escherichia coli 11/22/21 14:25 Nasal Secretion SARS-CoV-2 & FLU Antigen (Rapid) - Final Radiography Diagnostic Testing: Radiology Impression Echocardiogram 11/23/21 09:10 Interpretation Summary Normal LV size. Left ventricular systolic function is normal. The estimated ejection fraction is 65 %. There is mild to moderate mitral annular calcification. Mild focal aortic valve calcification. Contrast injection was performed. Ordering Physician: Marjorie Gutiérrez Referring Physician: Shayna Malhotra M.D. Performed By: Carlita Epstein RCS D/C Instructions Discharge Diet: Low fat / Low cholesterol, 2000 Calorie Control Diet and 2000 mg Sodium Diet Discharge Activity: Return to Normal Activity Weight Bearing Status: Weight bearing as tolerated Meaningful Use Info Meaningful Use Diagnoses (Choose all that apply): None applicable Discharge Plan Admission Admit Date/Time: 11/22/21 16:04 Primary Reason for Your Visit: Debility/KAYLA Attending Provider: Marjorie Gutiérrez Primary Care Provider: Shayna Malhotra Instructions Additional Instructions / Restrictions: Patient was taken off atorvastatin because of slightly elevated CPK of 500. Consider rechecking CPK in 1 week and seeing if she could be restarted on a lower dose of atorvastatin. Discharge Orders/Prescriptions Prescriptions: New quetiapine 100 mg Tablet 300 mg PO BID Qty: 0 0RF nystatin [Nyamyc] 100,000 unit/gram Powder 1 applic topical TID Qty: 0 0RF Eliquis 5 mg Tablet 5 mg PO BID Qty: 0 0RF insulin glargine-yfgn 100 unit/mL (3 mL) Insulin Pen 75 unit subcut QHS Qty: 0 0RF cefdinir 300 mg capsule 300 mg PO BID 5 Days Qty: 10 0RF Continued Adult 50 Plus Probiotic 4 billion cell capsule 4,000 mmu cells PO DAILY Rx Instructions: administer with a meal clonazepam 0.5 mg tablet 0.5 mg PO Q8H PRN PRN (Reason: panic attack(s)) Qty: 90 0RF guaifenesin 100 mg/5 mL liquid 200 mg PO Q4H PRN (Reason: cough) acetaminophen [Tylenol] 325 mg tablet 650 mg PO Q4H PRN PRN (Reason: Pain) ergocalciferol (vitamin D2) 1,250 mcg (50,000 unit) Capsule 50,000 unit PO Q14D Rx Instructions: Take every 2 weeks on Mondays triamcinolone acetonide 0.1 % Cream 1 applic TOPICAL Q12H PRN PRN (Reason: Rash) Rx Instructions: lower leg miconazole nitrate 2 % powder 1 applic TOPICAL BID lamotrigine 100 MG tablet 100 mg PO DAILY insulin lispro [Humalog KwikPen Insulin] 100 unit/mL insulin pen See Protocol subcut TIDAC Protocol: 3. Sliding Scale Insulin Med Dosing Condition: 150-189 mg/dl = 1 unit Condition: 190-229 mg/dl = 2 units Condition: 230-269 mg/dl = 3 units Condition: 270-309 mg/dl = 4 units Condition: 310-349 mg/dl = 5 units Condition: 350-399 mg/dl = 6 units Condition: 400-449 mg/dl = 7 units Condition: Greater than 449 call physician Protocol Text: - Use for Total Daily Dose of Insulin 37-55 units - Obsese, infected, or steroid patients MEDIUM DOSING ALGORITHIM Rx Instructions: sliding scale Trulicity 1.5 mg/0.5 mL pen injector 1.5 mg SC QWEEK Rx Instructions: Every Tuesday Discontinued atorvastatin 40 mg tablet 40 mg PO QHS Eliquis 5 mg tablet 5 mg PO BID Taper: Apixaban VTE Treatment 10 mg TWICE A DAY for 6 Days and 0 Hour 5 mg TWICE A DAY for 180 Days and 0 Hour Rx Instructions: 10 mg twice daily, last dose 09/27/2021 pm dose and then start 5 mg twice daily to continue for 6 months insulin glargine [Lantus Solostar U-100 Insulin] 100 unit/mL (3 mL) insulin pen 65 unit SC QHS Rx Instructions: Hold if glucose less than 130 mg/dl Quetiapine Fumarate [Seroquel Xr] 300 MG Tab.Sr.24h 600 mg PO QHS No Action lisinopril 5 mg tablet 5 mg PO QDAY (DME) FreeStyle Lite Strips Strip See Rx Instructions MISCELLANEOUS Rx Instructions: check blood glucose daily for type 2 DM (DME) blood-glucose meter [FreeStyle Lite Meter] Kit See Rx Instructions MISCELLANEOUS Rx Instructions: As directed, check blood glucose daily for type 2 DM (DME) lancets [FreeStyle Lancets] 28 gauge misc See Rx Instructions MISCELLANEOUS Rx Instructions: check blood glucose daily for type 2 DM Referrals / Follow Up: Shayna Malhotra MD [Primary Care Provider] - Disposition Disposition (needs filled in before D/C Order can be placed): Senior Living Facility Charges/Coding Visit Charges Inpatient E&M: 45159 Disch Hosp
--- NOTE | 2021-11-24 10:55 | EKG12_ITS ---
Test Reason : Blood Pressure : / mmHG Vent. Rate : 094 BPM Atrial Rate : 094 BPM P-R Int : 198 ms QRS Dur : 086 ms QT Int : 360 ms P-R-T Axes : 042 000 008 degrees QTc Int : 450 ms Normal sinus rhythm Normal ECG Confirmed by MUSTAPHA LEAL, JOHNNY ([id number]), visual effects editor MADONNA UMANZOR ([id number]) on 11/27/2021 11:46:55 AM Referred By: ADELINE Confirmed By:JOHNNY LUCIANO MD
[2021-11-24 11:15] LABS: CPK Total, Creatine Kinase 500 U/L (26-192)
[2021-11-24 12:20] LABS: Bedside Glucose 339 mg/dL (74-106)
--- NOTE | 2021-11-24 14:59 | CASEMGMT ---
Addendum entered by Maria Eugenia Lawson 11/24/21 15:03: [facility] social work administrator updated Renita on discharge time. Original Note: Social Work Transportation set up via [facility], cot. Transportation set up for today at 19:00. Transportation form completed and placed with patient discharge information. PLAN[facility]
[2021-11-24 16:21] LABS: Bedside Glucose 307 mg/dL (74-106)
--- NOTE | 2021-11-24 17:32 | NURSING ---
report called to Fior LEE at [facility]
== END 2021-11-24 19:01 | disposition skilled nursing facility (03) | DRG 683 ==
LOC: ED 14:00 → ICU 16:32 → PCU 11-23 17:33
PROVIDERS: Admitting Provider Internal Medicine; Emergency Provider Student in an Organized Health Care Education/Training Program; PCP Internal Medicine; Visit Provider Internal Medicine
DX: N17.9 Acute kidney failure, unspecified (principal); N39.0 Urinary tract infection, site not specified; E87.2 Acidosis; Z68.43 Body mass index [BMI] 50.0-59.9, adult; S09.90XA Unspecified injury of head, initial encounter; E83.39 Other disorders of phosphorus metabolism; E11.65 Type 2 diabetes mellitus with hyperglycemia; B96.20 Unspecified Escherichia coli [E. coli] as the cause of diseases classified elsewhere; F31.9 Bipolar disorder, unspecified; G40.909 Epilepsy, unspecified, not intractable, without status epilepticus; Z79.4 Long term (current) use of insulin; E66.01 Morbid (severe) obesity due to excess calories; E86.0 Dehydration; I10 Essential (primary) hypertension; E78.5 Hyperlipidemia, unspecified; W07.XXXA Fall from chair, initial encounter; E83.42 Hypomagnesemia; Z20.822 Contact with and (suspected) exposure to COVID-19; Z79.01 Long term (current) use of anticoagulants; R77.8 Other specified abnormalities of plasma proteins; Z79.899 Other long term (current) drug therapy; Z85.42 Personal history of malignant neoplasm of other parts of uterus; Z86.718 Personal history of other venous thrombosis and embolism; Z87.891 Personal history of nicotine dependence; Z86.711 Personal history of pulmonary embolism; Z90.710 Acquired absence of both cervix and uterus
CPT/HCPCS: 36415; 70450; 71045; 72125; 80053; 81001; 82550; 82962; 83036; 83605; 83735; 84100; 84484; 85025; 85610; 85730; 87040; 87077; 87086; 87088; 87186; 87426; 87428; 87635; 93005; 93306; 97162; 97166; 97802; 99285; J7030; J7050; Q9957; A4216; C8929; J2405; J3475; U0003; U0005

== ENCOUNTER → 2021-12-11 04:00 | Outpatient (REF) | payer MEDICARE, MEDICAID, SELFPAY | LOC: OLS.SW300 04:00 | PROVIDERS: PCP Internal Medicine; Visit Provider Family Medicine | DX: N39.0 Urinary tract infection, site not specified (principal) | CPT/HCPCS: 87077; 87086; 87088; 87186 ==

== ENCOUNTER → 2022-01-01 | Outpatient (REF) | payer MEDICARE, MEDICAID, SELFPAY ==
[2022-01-01 09:06] LABS: Hematocrit 40.7 % (37-47); Hemoglobin 13.5 g/dL (12.0-15.0); Mean Corp Hgb Conc 33.2 g/dL (32-36); Mean Corpuscular Hgb 28.6 pg (27.0-32.0); Mean Corpuscular Volume 86.2 fL (81-99); Platelet Count 141 K/mm3 (150-450); RBC Distribution Width CV 17.5 % (11.6-14.6); RBC Distribution Width SD 55.6 fl (35.1-43.9); Red Blood Count 4.72 M/mm3 (4.2-5.4); White Blood Count 8.6 K/mm3 (4.4-11.0)
[2022-01-01 09:31] LABS: Hemoglobin A1c 8.7 % (3.8-5.6)
[2022-01-01 09:41] LABS: ALB/GLOB Ratio 0.6 RATIO (0.9-2.4); AST(SGOT) 36 U/L (15-37); Alanine Aminotransfer ALT/SGPT 35 U/L (13-56); Albumin, Serum 3.1 g/dL (3.2-5.0); Alkaline Phosphatase 140 U/L (45-117); Anion Gap 9 (5-15); BUN 15 mg/dL (7-18); BUN/Creat Ratio 13.8 RATIO (10-20); Calcium,Total 9.3 mg/dL (8.5-10.1); Chloride 103 mmol/L (98-107); Creatinine, Serum 1.09 mg/dL (0.55-1.02); EST Glomerular Filtration Rate 53 mL/min (>60); Est Glom Filt Rate - Afr Amer 64 mL/min (>60); Globulin 4.9 g/dL (2.2-4.2); Glucose 218 mg/dL (74-106); Potassium 4.2 mmol/L (3.5-5.1); Sodium Level 135 mmol/L (136-145)
== END | disposition home or self-care (01) ==
LOC: OLS.SW300 06:35
PROVIDERS: PCP Internal Medicine; Visit Provider Family Medicine
DX: E11.9 Type 2 diabetes mellitus without complications (principal)
CPT/HCPCS: 36415; 80053; 83036; 85027

== ENCOUNTER → 2022-04-13 | Outpatient (REF) | payer MEDICARE, MEDICAID, SELFPAY ==
[2022-04-13 08:15] LABS: Absolute Neutrophil Count 2.5 X10^3/uL (2.0-7.7); Basophil# 0.01 X10^3/uL; Basophil% 0.2 % (0-1); Eosinophil# 0.16 X10^3/uL; Eosinophils% 3.5 % (0-5); Hematocrit 40.4 % (37-47); Hemoglobin 12.9 g/dL (12.0-15.0); Lymphocyte % 28.4 % (19-41); Mean Corp Hgb Conc 31.9 g/dL (32-36); Mean Corpuscular Volume 90.8 fL (81-99); Mean Platelet Vol. 11.1 fl (6.2-12.0); Monocyte# 0.59 X10^3/uL; Monocyte% 12.9 % (0-10); NRBC Flagged by Analyzer 0 % (0-5); Neutrophil % 54.6 % (47-70); Platelet Count 157 K/mm3 (150-450); RBC Distribution Width CV 14.3 % (11.6-14.6); RBC Distribution Width SD 47.8 fl (35.1-43.9); Red Blood Count 4.45 M/mm3 (4.2-5.4); White Blood Count 4.6 K/mm3 (4.4-11.0)
[2022-04-13 08:28] LABS: ALB/GLOB Ratio 0.6 RATIO (0.9-2.4); AST(SGOT) 40 U/L (15-37); Alanine Aminotransfer ALT/SGPT 32 U/L (13-56); Alkaline Phosphatase 144 U/L (45-117); Anion Gap 9 (5-15); BUN 14 mg/dL (7-18); BUN/Creat Ratio 15.3 RATIO (10-20); Chloride 106 mmol/L (98-107); Creatinine, Serum 0.92 mg/dL (0.55-1.02); EST Glomerular Filtration Rate 65 mL/min (>60); Est Glom Filt Rate - Afr Amer 78 mL/min (>60); Globulin 4.8 g/dL (2.2-4.2); Glucose 149 mg/dL (74-106); Potassium 4.5 mmol/L (3.5-5.1); Protein, Total 7.8 g/dL (6.4-8.2); Sodium Level 138 mmol/L (136-145); Vitamin D,25 Hydroxy 63.8 ng/mL
== END ==
LOC: OLS.SWAL 05:00
PROVIDERS: PCP Internal Medicine
DX: E11.9 Type 2 diabetes mellitus without complications (principal); E78.5 Hyperlipidemia, unspecified; E55.9 Vitamin D deficiency, unspecified
CPT/HCPCS: 36415; 80053; 82306; 85025

== ENCOUNTER → 2022-06-08 | Outpatient (REF) | payer MEDICARE, MEDICAID, SELFPAY ==
[2022-06-08 09:58] LABS: Absolute Lymphocyte Count 1.23 X10^3/uL (0.83-4.51); Absolute Neutrophil Count 2.9 X10^3/uL (2.0-7.7); Basophil# 0.03 X10^3/uL; Basophil% 0.6 % (0-1); Eosinophil# 0.16 X10^3/uL; Eosinophils% 3.3 % (0-5); Hematocrit 39.7 % (37-47); Hemoglobin 12.4 g/dL (12.0-15.0); Lymphocyte # 1.23 X10^3/ul (0.83-4.51); Lymphocyte % 25.7 % (19-41); Mean Corp Hgb Conc 31.2 g/dL (32-36); Mean Corpuscular Hgb 27.7 pg (27.0-32.0); Mean Corpuscular Volume 88.8 fL (81-99); Mean Platelet Vol. 11.1 fl (6.2-12.0); Monocyte# 0.42 X10^3/uL; Monocyte% 8.8 % (0-10); NRBC Flagged by Analyzer 0 % (0-5); Neutrophil # 2.93 X10^3/uL (2.7-7.7); Neutrophil % 61.4 % (47-70); Platelet Count 145 K/mm3 (150-450); RBC Distribution Width CV 14.9 % (11.6-14.6); RBC Distribution Width SD 48.8 fl (35.1-43.9); Red Blood Count 4.47 M/mm3 (4.2-5.4); White Blood Count 4.8 K/mm3 (4.4-11.0)
[2022-06-08 10:02] LABS: Vitamin D,25 Hydroxy 56.8 ng/mL
[2022-06-08 10:04] LABS: ALB/GLOB Ratio 0.6 RATIO (0.9-2.4); AST(SGOT) 39 U/L (15-37); Alanine Aminotransfer ALT/SGPT 36 U/L (13-56); Albumin, Serum 2.8 g/dL (3.2-5.0); Alkaline Phosphatase 142 U/L (45-117); Anion Gap 9 (5-15); BUN 15 mg/dL (7-18); BUN/Creat Ratio 17.1 RATIO (10-20); Chloride 103 mmol/L (98-107); Cholesterol 116 mg/dL (200); Creatinine, Serum 0.88 mg/dL (0.55-1.02); EST Glomerular Filtration Rate 68 mL/min (>60); Est Glom Filt Rate - Afr Amer 82 mL/min (>60); Globulin 4.8 g/dL (2.2-4.2); Glucose 266 mg/dL (74-106); High Density Lipoprotein 58 mg/dL; Potassium 4.3 mmol/L (3.5-5.1); Protein, Total 7.6 g/dL (6.4-8.2); Sodium Level 134 mmol/L (136-145); Triglycerides 86 mg/dL; Very Low Density Lipoprotein 17 mg/dL (5-40)
[2022-06-08 10:18] LABS: Hemoglobin A1c 8.8 % (3.8-5.6)
== END ==
LOC: OLS.SWAL 05:00
PROVIDERS: PCP Internal Medicine
DX: E11.9 Type 2 diabetes mellitus without complications (principal); I10 Essential (primary) hypertension; E55.9 Vitamin D deficiency, unspecified; E78.5 Hyperlipidemia, unspecified
CPT/HCPCS: 36415; 80053; 80061; 82306; 83036; 85025

== ENCOUNTER → 2022-07-13 | Outpatient (REF) | payer MEDICARE, MEDICAID, SELFPAY ==
[2022-07-13 09:24] LABS: Absolute Lymphocyte Count 1.18 X10^3/uL (0.83-4.51); Absolute Neutrophil Count 3.5 X10^3/uL (2.0-7.7); Basophil# 0.04 X10^3/uL; Basophil% 0.7 % (0-1); Eosinophil# 0.18 X10^3/uL; Eosinophils% 3.3 % (0-5); Hematocrit 39.3 % (37-47); Hemoglobin 12.8 g/dL (12.0-15.0); Lymphocyte # 1.18 X10^3/ul (0.83-4.51); Lymphocyte % 21.9 % (19-41); Mean Corp Hgb Conc 32.6 g/dL (32-36); Mean Corpuscular Hgb 28.4 pg (27.0-32.0); Mean Corpuscular Volume 87.1 fL (81-99); Mean Platelet Vol. 11.2 fl (6.2-12.0); Monocyte# 0.49 X10^3/uL; Monocyte% 9.1 % (0-10); NRBC Flagged by Analyzer 0 % (0-5); Neutrophil # 3.49 X10^3/uL (2.7-7.7); Neutrophil % 64.8 % (47-70); Platelet Count 132 K/mm3 (150-450); RBC Distribution Width CV 15.7 % (11.6-14.6); RBC Distribution Width SD 49.6 fl (35.1-43.9); Red Blood Count 4.51 M/mm3 (4.2-5.4); White Blood Count 5.4 K/mm3 (4.4-11.0)
[2022-07-13 10:01] LABS: Vitamin D,25 Hydroxy 47.5 ng/mL
[2022-07-13 10:23] LABS: ALB/GLOB Ratio 0.7 RATIO (0.9-2.4); AST(SGOT) 48 U/L (15-37); Alanine Aminotransfer ALT/SGPT 35 U/L (13-56); Albumin, Serum 3.3 g/dL (3.2-5.0); Alkaline Phosphatase 159 U/L (45-117); Anion Gap 8 (5-15); BUN 16 mg/dL (7-18); BUN/Creat Ratio 16.6 RATIO (10-20); Calcium,Total 9.6 mg/dL (8.5-10.1); Chloride 104 mmol/L (98-107); Creatinine, Serum 0.97 mg/dL (0.55-1.02); EST Glomerular Filtration Rate 61 mL/min (>60); Est Glom Filt Rate - Afr Amer 74 mL/min (>60); Globulin 4.9 g/dL (2.2-4.2); Glucose 314 mg/dL (74-106); Potassium 5.1 mmol/L (3.5-5.1); Protein, Total 8.2 g/dL (6.4-8.2); Sodium Level 135 mmol/L (136-145)
== END ==
LOC: OLS.SWAL 05:00
PROVIDERS: PCP Internal Medicine
DX: E55.9 Vitamin D deficiency, unspecified (principal); E11.9 Type 2 diabetes mellitus without complications; E78.5 Hyperlipidemia, unspecified
CPT/HCPCS: 36415; 80053; 82306; 85025

== ENCOUNTER → 2022-08-12 | Outpatient (REF) | payer MEDICARE, MEDICAID, SELFPAY ==
[2022-08-13 14:16] LABS: C-Peptide 2.9 ng/mL (1.1-4.4)
== END ==
LOC: OLS.SWAL 05:00
PROVIDERS: PCP Internal Medicine
DX: E11.9 Type 2 diabetes mellitus without complications (principal)
CPT/HCPCS: 36415; 84681

== ENCOUNTER → 2022-10-13 | Outpatient (REF) | payer MEDICARE, MEDICAID, SELFPAY ==
[2022-10-13 10:27] LABS: Vitamin D,25 Hydroxy 57.3 ng/mL
[2022-10-13 10:34] LABS: Absolute Lymphocyte Count 1.32 X10^3/uL (0.83-4.51); Absolute Neutrophil Count 3.2 X10^3/uL (2.0-7.7); Basophil# 0.03 X10^3/uL; Basophil% 0.6 % (0-1); Eosinophil# 0.18 X10^3/uL; Eosinophils% 3.5 % (0-5); Hematocrit 41.7 % (37-47); Hemoglobin 13.1 g/dL (12.0-15.0); Lymphocyte # 1.32 X10^3/ul (0.83-4.51); Lymphocyte % 25.4 % (19-41); Mean Corp Hgb Conc 31.4 g/dL (32-36); Mean Corpuscular Hgb 28.4 pg (27.0-32.0); Mean Corpuscular Volume 90.3 fL (81-99); Mean Platelet Vol. 11.1 fl (6.2-12.0); Monocyte% 9.6 % (0-10); NRBC Flagged by Analyzer 0 % (0-5); Neutrophil # 3.15 X10^3/uL (2.7-7.7); Neutrophil % 60.7 % (47-70); Platelet Count 139 K/mm3 (150-450); RBC Distribution Width CV 15.1 % (11.6-14.6); RBC Distribution Width SD 50.5 fl (35.1-43.9); Red Blood Count 4.62 M/mm3 (4.2-5.4); White Blood Count 5.2 K/mm3 (4.4-11.0)
[2022-10-13 10:41] LABS: ALB/GLOB Ratio 0.7 RATIO (0.9-2.4); AST(SGOT) 49 U/L (15-37); Alanine Aminotransfer ALT/SGPT 45 U/L (13-56); Albumin, Serum 3.2 g/dL (3.2-5.0); Alkaline Phosphatase 153 U/L (45-117); Anion Gap 6 (5-15); BUN 14 mg/dL (7-18); BUN/Creat Ratio 15.7 RATIO (10-20); Calcium,Total 9.5 mg/dL (8.5-10.1); Chloride 106 mmol/L (98-107); Creatinine, Serum 0.89 mg/dL (0.55-1.02); EST Glomerular Filtration Rate 66 mL/min (>60); Est Glom Filt Rate - Afr Amer 80 mL/min (>60); Globulin 4.9 g/dL (2.2-4.2); Glucose 232 mg/dL (74-106); Potassium 4.7 mmol/L (3.5-5.1); Protein, Total 8.1 g/dL (6.4-8.2); Sodium Level 137 mmol/L (136-145)
== END ==
LOC: OLS.SWAL 05:00
PROVIDERS: PCP Internal Medicine; Visit Provider Internal Medicine
DX: E55.9 Vitamin D deficiency, unspecified (principal); E11.9 Type 2 diabetes mellitus without complications; E78.5 Hyperlipidemia, unspecified
CPT/HCPCS: 36415; 80053; 82306; 85025

== ENCOUNTER 2023-01-09 17:13 | Emergency (ER) | payer MEDICARE, MEDICAID, SELFPAY ==
[2023-01-09 17:15] VITALS: BP 183/84; PULSE 117; RESP 16; TEMP 37.6; O2SAT 96; BMI 51.0
[2023-01-09 17:17] VITALS: BP 183/84; PULSE 115; RESP 16; TEMP 37.6; O2SAT 96
--- NOTE | 2023-01-09 17:20 | EDS_ITS ---
HPI History of Present Illness Chief Complaint: General Illness [facility] Medical History Anxiety Anxiety Bipolar 1 disorder Cancer Diabetes DVT (deep venous thrombosis) Former smoker history of broken heel left foot History of recurrent UTIs History of seizures Hyperlipidemia Hypertension Vitamin D deficiency Home Medications lactobacillus combination no.9 4 billion cell capsule (Adult 50 Plus Probiotic) 4,000 mmu cells PO DAILY 06/25/20 [History Last Taken Unknown] acetaminophen 325 mg tablet (Tylenol) 650 mg PO Q4H PRN PRN Pain 07/30/21 [History Last Taken Unknown] guaifenesin 100 mg/5 mL oral liquid 200 mg PO Q4H PRN cough 07/30/21 [History Last Taken Unknown] ergocalciferol (vitamin D2) 1,250 mcg (50,000 unit) capsule 50,000 unit PO Q14D suuplement 09/20/21 [History Last Taken Unknown] triamcinolone acetonide 0.1 % topical cream 1 applic topical Q12H PRN PRN Rash 09/20/21 [History Last Taken Unknown] insulin lispro 100 unit/mL subcutaneous pen (Humalog KwikPen (U-100) Insulin) See Protocol subcut TIDAC diabetes 11/22/21 [History Last Taken Unknown] lamotrigine 100 mg tablet 100 mg PO DAILY seizures 11/22/21 [History Last Taken Unknown] lisinopril 5 mg tablet 5 mg PO QDAY BP 11/22/21 [History Last Taken Unknown] miconazole nitrate 2 % topical powder 1 applic topical BID Check with primary doctor 11/22/21 [History Last Taken Unknown] blood sugar diagnostic (FreeStyle Lite Strips) 11/23/21 [History Last Taken Unknown] blood-glucose meter (FreeStyle Lite Meter kit) 11/23/21 [History Last Taken Unknown] lancets 28 gauge (FreeStyle Lancets) 11/23/21 [History Last Taken Unknown] nystatin 100,000 unit/gram topical powder ([facility]) 1 applic topical TID #0 grams 11/24/21 [Rx Last Taken Unknown] quetiapine 100 mg tablet 300 mg (3 x 100 mg) PO BID #0 tabs 11/24/21 [Rx Last Taken Unknown] aspirin 81 mg chewable tablet 81 mg PO DAILY 05/06/22 [History Last Taken Unknown] insulin glargine-yfgn 100 unit/mL (3 mL) subcutaneous pen 85 unit (0.85 mL) subcut QHS #15 mL 08/11/22 [Rx Last Taken Unknown] empagliflozin 10 mg tablet (Jardiance) 10 mg PO DAILY 08/17/22 [History Last Taken Unknown] clonazepam 0.5 mg tablet 0.5 mg PO Q12H PRN panic attack(s) #60 tabs 11/08/22 [Rx Last Taken Unknown] atorvastatin 40 mg tablet 40 mg PO QPM 11/24/22 [History Last Taken Unknown] dulaglutide 3 mg/0.5 mL subcutaneous pen injector (Trulicity) 3 mg subcut QWEEK 11/24/22 [History Last Taken Unknown] azithromycin 500 mg tablet 500 mg PO DAILY 5 days #5 tabs 01/09/23 [Rx Last Taken Unknown] nystatin 100,000 unit/mL oral suspension 2 ml PO 4X/DAY 5 days #40 mL 01/09/23 [Rx Last Taken Unknown] Allergy/AdvReac Type Severity Reaction Status Date / Time ciprofloxacin [From Cipro] Allergy Mild Anaphylaxis Verified 01/09/23 17:19 ciprofloxacin HCl Allergy Anaphylaxis Verified 01/09/23 17:19 [From Cipro] Iodinated Contrast Media Allergy Rash Verified 01/09/23 17:19 [Iodinated Contrast Media - IV Dye] paliperidone [From Invega] Allergy Rash Verified 01/09/23 17:19 Penicillins Allergy RASH AND Verified 01/09/23 17:19 ITCHING red (food color) Allergy Hives Verified 01/09/23 17:19 red dye Allergy Hives Verified 01/09/23 17:19 Sulfa (Sulfonamide Allergy RASH AND Verified 01/09/23 17:19 Antibiotics) ITCHING metformin AdvReac Nausea/Vom/ Verified 01/09/23 17:19 Diarrhea shellfish derived AdvReac Nausea/Vom/ Verified 01/09/23 17:19 Diarrhea Family History Mother Diabetes Hypertension Heart disease Thyroid disorder Father CVA (cerebral vascular accident) Diabetes Brother Parkinson disease Thyroid disorder Lupus Alcoholism Blood clots in brain Grandfather Heart disease Asthma Social History Smoking Status: Former smoker Tobacco: How many years used: 45 how long ago did patient quit smokin11/2016 substance use type: does not use what type of physical activity do you participate in: none EXAM Physical Exam Const Vital Signs: 01/09/23 17:15 01/09/23 17:17 01/09/23 17:53 Temperature 99.7 F H 99.7 F H 102.9 F H Temperature Source Oral Temporal Oral Pulse Rate 117 H 115 H 114 H Respiratory Rate 16 16 16 Blood Pressure 183/84 H 183/84 H 166/89 H Blood Pressure Mean 117 117 114 Pulse Ox 96 96 96 Oxygen Delivery Method Room Air Room Air Room Air 01/09/23 19:06 Temperature 99.5 F H Temperature Source Oral Pulse Rate 115 H Respiratory Rate 16 Blood Pressure Blood Pressure Mean Pulse Ox 95 Oxygen Delivery Method Room Air [facility] MDM MDM Narrative Medical decision making narrative: HISTORY OF PRESENT ILLNESS: 72-year-old female here with sore throat. Notes 2 days of symptoms. Notes pain with swallowing. Denies drooling, neck stiffness or submandibular edema. REVIEW OF SYSTEMS: Pertinent positives: Sore throat Pertinent negatives: Neck stiffness, drooling PHYSICAL EXAM: Nursing triage notes reviewed, Vital signs reviewed Constitutional: please see mdm HENT: MMM, erythema noted to the posterior oropharynx, white exudates noted to posterior oropharynx. Patent appear to be consistent with thrush however cannot completely rule out bacterial infection. Will give antibiotics and nystatin swish and swallow. Eyes: Pupils equal round and reactive to light, Extraocular muscles intact Neck: No stridor, no JVD, full neck ROM MEDICAL DECISION MAKING: Chief Complaint: Sore throat Factors affecting care: Type 2 diabetes, bipolar disorder, Social determinants of health: Former smoker ALL IMAGES (IF OBTAINED) HAVE BEEN PERSONALLY REVIEWED AND INTERPRETED BY MYSELF. MDM Narrative: Patient was hypertensive, tachycardic, afebrile. Exam with exudates. Consistent with viral pharyngitis versus thrush I considered the following differential diagnosis: Viral versus bacterial pharyngitis, RPA, [employer], Ludewig's angina During the patient's ED course she was noted to be persistently tachycardic. Temperature was repeated and she was febrile to 102.9. She did receive Tylenol as well as azithromycin. Did discuss her elevated heart rate. Patient states her heart rate is always elevated usually in the low 100s. She states she feels well. She states he was able to tolerate antibiotic and pain medicine by mouth. I did offer IV fluids, further lab testing EKG however patient refused stating she felt comfortable going home with the medicines that she received here. She was alert and orient x3 and had capacity to make own medical symptoms and chose to be discharged home with strict return precautions and follow-up instructions No clinical evidence. Evidence of Ludewig's angina, RPA, [employer] DES[employer]. Patient was afebrile here. Will give oral antibiotics. Will give nystatin swish and swallow. Will give close PCP follow-up The patient and/or family, caregivers express understanding. The patient and/or family, caregivers agrees with the plan. Shared decision making: I will have a discussion with the patient and or visitors regarding risk/benefits of further testing or admission. They will be made aware of of the risk/benefits inherent in this decision they will be given the opportunity to voice understanding. Total critical care time today provided was at least 0 minutes. This excludes separately billable procedures. Critical care time (if documented) is secondary to the patient having high probability of clinically significant/life threatening deterioration in the patient's condition which required my urgent intervention. Discharge Plan Triage Chief Complaint: General Illness ED Provider: Kendell Do Dx/Rx/DC Orders Clinical Impression: Acute bacterial pharyngitis Instructions: Strep Throat Prescriptions: New azithromycin 500 mg tablet 500 mg PO DAILY 5 Days Qty: 5 0RF nystatin 100,000 unit/mL suspension 2 ml PO 4X/DAY 5 Days Qty: 40 0RF Rx Instructions: Put 1 mL in each side of mouth 4 times a day. No Action Adult 50 Plus Probiotic 4 billion cell capsule 4,000 mmu cells PO DAILY Rx Instructions: administer with a meal guaifenesin 100 mg/5 mL liquid 200 mg PO Q4H PRN (Reason: cough) acetaminophen [Tylenol] 325 mg tablet 650 mg PO Q4H PRN PRN (Reason: Pain) aspirin 81 mg tablet,chewable 81 mg PO DAILY Trulicity 3 mg/0.5 mL pen injector 3 mg subcut QWEEK atorvastatin 40 mg tablet 40 mg PO QPM ergocalciferol (vitamin D2) 1,250 mcg (50,000 unit) Capsule 50,000 unit PO Q14D Rx Instructions: Take every 2 weeks on Mondays triamcinolone acetonide 0.1 % Cream 1 applic TOPICAL Q12H PRN PRN (Reason: Rash) Rx Instructions: lower leg miconazole nitrate 2 % powder 1 applic TOPICAL BID lisinopril 5 mg tablet 5 mg PO QDAY lamotrigine 100 MG tablet 100 mg PO DAILY insulin lispro [Humalog KwikPen Insulin] 100 unit/mL insulin pen See Protocol subcut TIDAC Protocol: 3. Sliding Scale Insulin Med Dosing Condition: 150-189 mg/dl = 1 unit Condition: 190-229 mg/dl = 2 units Condition: 230-269 mg/dl = 3 units Condition: 270-309 mg/dl = 4 units Condition: 310-349 mg/dl = 5 units Condition: 350-399 mg/dl = 6 units Condition: 400-449 mg/dl = 7 units Condition: Greater than 449 call physician Protocol Text: - Use for Total Daily Dose of Insulin 37-55 units - Obsese, infected, or steroid patients MEDIUM DOSING ALGORITHIM Rx Instructions: sliding scale (DME) FreeStyle Lite Strips Strip See Rx Instructions MISCELLANEOUS Rx Instructions: check blood glucose daily for type 2 DM (DME) blood-glucose meter [FreeStyle Lite Meter] Kit See Rx Instructions MISCELLANEOUS Rx Instructions: As directed, check blood glucose daily for type 2 DM (DME) lancets [FreeStyle Lancets] 28 gauge misc See Rx Instructions MISCELLANEOUS Rx Instructions: check blood glucose daily for type 2 DM quetiapine 100 mg Tablet 300 mg PO BID Qty: 0 0RF nystatin [Nyamyc] 100,000 unit/gram Powder 1 applic topical TID Qty: 0 0RF insulin glargine-yfgn 100 unit/mL (3 mL) insulin pen 85 unit subcut QHS Qty: 15 6RF Jardiance 10 mg tablet 10 mg PO DAILY clonazepam 0.5 mg tablet 0.5 mg PO Q12H PRN (Reason: panic attack(s)) Qty: 60 1RF Primary Care Provider: Shayna Malhotra Referrals: Shayna Malhotra MD [Primary Care Provider] - Activity Restrictions/Additional Instructions: Thank you for trusting us with your care today! Please take Tylenol (2 pills, 650 mg), ibuprofen (2 pills, 400 mg) every 6 hours as needed for pain and fever control. Please take antibiotics as prescribed. Please use mouthwash called nystatin as prescribed. Please return to the emergency department if your symptoms change or worsen. Specifically he cannot swallow, you drool, you develop tightness in your throat, neck stiffness or swelling or anything or jaw. Please follow with your primary care physician for further outpatient evaluation and management. Disposition Disposition: Home, Self Care Discharge Date/Time: 01/09/23 19:16
[2023-01-09 17:53] VITALS: BP 166/89; PULSE 114; RESP 16; TEMP 39.4; O2SAT 96
[2023-01-09] MEDS: Azithromycin 250 MG Tablet 500 MG PO (17:55)
[2023-01-09] MEDS: Oxycodone/Apap 5/325 Tablet PO (17:55)
--- NOTE | 2023-01-09 17:55 | ED.RN ---
DR RODRIGUEZ NOTIFIED MKCY=887.9. MEDICATED ORDERED. STATES HE WILL SPEAK WITH PT
[2023-01-09 19:06] VITALS: PULSE 115; RESP 16; TEMP 37.5; O2SAT 95
== END 2023-01-09 19:16 | disposition home or self-care (01) ==
PROVIDERS: Emergency Provider Emergency Medicine; PCP Internal Medicine; Visit Provider Emergency Medicine
DX: J02.9 Acute pharyngitis, unspecified (principal); F31.9 Bipolar disorder, unspecified; E11.9 Type 2 diabetes mellitus without complications; Z79.4 Long term (current) use of insulin; R00.0 Tachycardia, unspecified; I10 Essential (primary) hypertension; E78.5 Hyperlipidemia, unspecified; Z79.82 Long term (current) use of aspirin; Z79.899 Other long term (current) drug therapy; Z87.891 Personal history of nicotine dependence
CPT/HCPCS: 99285

== ENCOUNTER → 2023-04-08 | Outpatient (REF) | payer MEDICARE, MEDICAID, SELFPAY ==
[2023-04-08 09:44] LABS: Absolute Lymphocyte Count 1.16 X10^3/uL (0.83-4.51); Absolute Neutrophil Count 3.3 X10^3/uL (2.0-7.7); Basophil# 0.03 X10^3/uL; Basophil% 0.6 % (0-1); Eosinophil# 0.13 X10^3/uL; Eosinophils% 2.6 % (0-5); Hematocrit 40.3 % (37-47); Hemoglobin 12.9 g/dL (12.0-15.0); Lymphocyte # 1.16 X10^3/ul (0.83-4.51); Lymphocyte % 23.2 % (19-41); Mean Corpuscular Hgb 28.7 pg (27.0-32.0); Mean Corpuscular Volume 89.6 fL (81-99); Mean Platelet Vol. 11.9 fl (6.2-12.0); Monocyte# 0.39 X10^3/uL; Monocyte% 7.8 % (0-10); NRBC Flagged by Analyzer 0 % (0-5); Neutrophil # 3.27 X10^3/uL (2.7-7.7); Neutrophil % 65.4 % (47-70); Platelet Count 119 K/mm3 (150-450); RBC Distribution Width CV 15.6 % (11.6-14.6); RBC Distribution Width SD 51.4 fl (35.1-43.9)
[2023-04-08 09:52] LABS: ALB/GLOB Ratio 0.7 RATIO (0.9-2.4); AST(SGOT) 36 U/L (15-37); Alanine Aminotransfer ALT/SGPT 35 U/L (13-56); Albumin, Serum 3.2 g/dL (3.2-5.0); Alkaline Phosphatase 126 U/L (45-117); Anion Gap 6 (5-15); BUN 15 mg/dL (7-18); BUN/Creat Ratio 17.1 RATIO (10-20); Calcium,Total 9.1 mg/dL (8.5-10.1); Chloride 106 mmol/L (98-107); Creatinine, Serum 0.88 mg/dL (0.55-1.02); EST Glomerular Filtration Rate 68 mL/min (>60); Est Glom Filt Rate - Afr Amer 82 mL/min (>60); Globulin 4.9 g/dL (2.2-4.2); Glucose 200 mg/dL (74-106); Potassium 4.2 mmol/L (3.5-5.1); Protein, Total 8.1 g/dL (6.4-8.2); Sodium Level 136 mmol/L (136-145)
[2023-04-08 09:55] LABS: Vitamin D,25 Hydroxy 43.2 ng/mL
[2023-04-08 10:19] LABS: Hemoglobin A1c 7.5 % (3.8-5.6)
== END ==
LOC: OLS.SWAL 05:00
PROVIDERS: PCP Internal Medicine; Visit Provider Internal Medicine
DX: E11.9 Type 2 diabetes mellitus without complications (principal); E03.9 Hypothyroidism, unspecified; E55.9 Vitamin D deficiency, unspecified
CPT/HCPCS: 36415; 80053; 82306; 83036; 85025

== ENCOUNTER → 2023-07-08 | Outpatient (REF) | payer MEDICARE, MEDICAID, SELFPAY ==
--- OUTSIDE RECORDS SUMMARY | 2023-07-08 05:27 | XMS RPT_ITS | CCD ---
Author Name Unknown Address [address] [place] [address] Organization [facility] Care Team Providers Care Automobile Sales Representative Name Role Phone Sena Cox NP Unavailable [phone] Johnny Richardson Unavailable Unavailable Unavailable Primary Care Provider Unavailabl e Allergies Allergy Classification Reported Allergen(s) Allergy Type Date of Onset Reaction(s) Facility (5 sources) Ciprofloxacin Drug Allergy 6 Shortness of Breath, Anaphylaxis [facility] (5 sources) [facility] (5 sources) Fish Drug Allergy 6 [facility] (5 sources) metFORMIN Drug Allergy 7 Diarrhea, GI Upset, Vomiting [facility] (5 sources) paliperidone Drug Allergy 7 Rash [facility] (4 sources) Penicillins Drug Allergy 6 Rash [facility] (5 sources) Shellfish Drug Intolerance 9 Diarrhea, Vomiting [facility] (5 sources) Sulfonamides (Antibiotic) Drug Allergy 6 Rash [facility] (5 sources) Iodinated Contrast Media Drug Allergy 9 Rash [facility] (4 sources) Mold Extract Drug Allergy 2 [facility] (1 source) Penicillins Drug Allergy 6 [facility] Medications Current Medications Medication Drug Class(es) Dates Sig (Normalized) Sig (Original) acetaminophen 325 mg oral tablet (4 sources) Start: 09-07-2021 End: 09-21-2021 take 2 tablets by mouth every six hours acetaminophen (TYLENOL) 325 mg tablet Take 2 tablets by mouth every 6 hours for 14 days. 112 tablet 0 09/07/2021 09/21/2021 Active Completed/Discontinued Medications Medication Drug Class(es) Dates Sig (Normalized) Sig (Original) atorvastatin 40 mg oral tablet (5 sources) HMG-CoA Reductase Inhibitor take 1 tablet by mouth once daily at bedtime atorvastatin (LIPITOR) 40 mg tablet Take 40 mg by mouth daily at bedtime. 0 Active Problems Active Problems Problem Classification Problem Date Documented Date Episodic/Chronic Cancer of uterus (6 sources) Malignant neoplasm of endometrium of corpus uteri ; Translations: [Malignant neoplasm of endometrium] Onset: 09-08-2021 Chronic Complications of surgical procedures or medical care (4 sources) Difficult intubation; Translations: [Failed or difficult intubation, initial encounter] Onset: 09-07-2021 09-07-2021 Episodic Diabetes mellitus with complications (1 source) Secondary diabetes mellitus; Translations: [Diabetes mellitus due to underlying condition with 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 nonketotic hyperglycemic-hyperos molar coma ([facility])] Chronic Diabetes mellitus without complication (3 sources) Type 2 diabetes mellitus; Translations: [Type 2 diabetes mellitus without complications] Onset: 10-26-2016 10-26-2016 Chronic Disorders of lipid metabolism (1 source) Mixed hyperlipidemia; Translations: [Mixed hyperlipidemia] Chronic Essential hypertension (1 source) Essential hypertension; Translations: [Essential (primary) hypertension] Chronic Mood disorders (5 sources) Mood disorder; Translations: [Unspecified mood [affective] disorder] Onset: 09-04-2014 06-01-2021 Chronic Other aftercare (4 sources) Postoperative visit; Translations: [Encounter for other specified surgical aftercare] Onset: 09-07-2021 09-08-2021 Episodic Other nutritional; endocrine; and metabolic disorders (6 sources) Overweight; Translations: [Body mass index (BMI) 40.0-44.9, adult] Onset: 10-26-2016 10-26-2016 Chronic Other screening for suspected conditions (not mental disorders or infectious disease) (1 source) No current problems or disability 10-26-2016 Substance-related disorders (5 sources) Tobacco user; Translations: [Nicotine dependence, unspecified, uncomplicated] Onset: 07-15-2005 07-15-2005 Chronic Systemic lupus erythematosus and connective tissue disorders (5 sources) Systemic lupus erythematosus; Translations: [Systemic lupus erythematosus, unspecified] Onset: 07-15-2005 07-15-2005 Chronic Past or Other Problems Problem Classification Problem Date Documented Da te Episodic/Chronic Diabetes mellitus without complication (5 sources) Hyperglycemia; Translations: [Hyperglycemia, unspecified] Onset: 09-04-2014 09-04-2014 Episodic Other connective tissue disease (5 sources) Muscle pain; Translations: [Myalgia and myositis, unspecified] Onset: 07-15-2005 07-15-2005 Episodic Other liver diseases (5 sources) Enzyme level - finding; Translations: [Elevated transaminase level] Onset: 09-04-2014 09-04-2014 Episodic Results Test Name Value Interpretation Reference Range Facil ity Vital Signs Date Time Vital Sign Value Performing Clinician Facility 10-02-2021 12:46-0400 Body height 165.1 cm Dustin Dooley MD Work Phone: [facility] 10-02-2021 12:46-0400 Body temperature 97.39 [degF] Dustin Dooley MD Work Phone: [facility] 10-02-2021 12:46-0400 Body weight 136.53 kg Dustin Dooley MD Work Phone: [facility] 10-02-2021 12:46-0400 Diastolic blood pressure 85 mm[Hg] Dustin Dooley MD Work Phone: [facility] 10-02-2021 12:46-0400 Heart rate 103 /min Dustin Dooley MD Work Phone: [facility] 10-02-2021 12:46-0400 Respiratory rate 20 /min Dustin Dooley MD Work Phone: [facility] 10-02-2021 12:46-0400 SaO2% (BldA) [Mass fraction] 98 % Dustin Dooley MD Work Phone: [facility] 10-02-2021 12:46-0400 Systolic blood pressure 152 mm[Hg] Dustin Dooley MD Work Phone: [facility] 09-01-2021 15:00-0400 Body height 165.1 cm Pst 1 [facility] 09-01-2021 15:00-0400 Body temperature 97.5 [degF] Pst 1 [facility] 09-01-2021 15:00-0400 Body weight 128.82 kg Pst 1 [facility] 09-01-2021 15:00-0400 Diastolic blood pressure 71 mm[Hg] Pst 1 [facility] 09-01-2021 15:00-0400 Heart rate 97 /min Pst 1 [facility] 09-01-2021 15:00-0400 Respiratory rate 18 /min Pst 1 [facility] 09-01-2021 15:00-0400 SaO2% (BldA) [Mass fraction] 97 % Pst 1 [facility] 09-01-2021 15:00-0400 Systolic blood pressure 127 mm[Hg] Pst 1 [facility] 10-26-2016 15:36-0400 BMI (Body Mass Index) 41.6 kg/m2 Sena Cox NP [facility] Work Phone: 10-26-2016 15:36-0400 BP Diastolic 97 mm[Hg] Sena Cox NP [facility] Work Phone: 10-26-2016 15:36-0400 BP Systolic 155 mm[Hg] Sena Cox NP [facility] Work Phone: 10-26-2016 15:36-0400 BSA (Body Surface Area) 2.12 m2 Sena Cox NP [facility] Work Phone: 10-26-2016 15:36-0400 Height 162.56 cm Sena Cox NP [facility] Work Phone: 10-26-2016 15:36-0400 Pulse (Heart Rate) 101 /min Sena Cox NP [facility] Work Phone: 10-26-2016 15:36-0400 Pulse Oximetry 97 % Sena Cox NP [facility] Work Phone: 10-26-2016 15:36-0400 Respiratory Rate 16 /min Sena Cox NP [facility] Work Phone: 10-26-2016 15:36-0400 Weight 109.95 kg Sena Cox ORGANISATION AND METHODS ANALYST [facility] Work Phone: Encounters Encounter Date Encounter Type Care Provider Facility Start: 10-02-2021 End: 10-02-2021 ambulatory Dustin Dooley MD Work Phone: [facility] Procedures Date Procedure Procedure Detail Performing Clinician Start: 09-01-2021 Antibody screen Plan of Treatment Date Care Activity Detail Author Start: 09-07-2024 DIABETES SCREEN DIABETES SCREEN [facility] Start: 02-04-2022 Influenza vaccination INFLUENZ A (Season Ended) [facility] Start: 09-01-2021 End: 11-01-2021 CBC panel - Blood by Automated count [facility] Work Phone: Immunizations Immunization Date Immunization Notes Care Provider Fa cility 09-04-2010 pneumococcal polysaccharide vaccine, 23 valent Pst 1 [facility] Work Phone: Payers Date Payer Category Payer Medicare [id number] Social History Date Type Detail Facility Start: 07-29-2021 Tobacco smoking stat us NHIS Ex-smoker [facility] History of tobacco use Cigarette Smoker C [facility] Start: 07-29-2021 Cigarettes smoked cu rrent (pack per day) - Reported 0.5 [facility] Start: 07-29-2021 Tobacco use and exposure Smoke less tobacco non-user [facility] Start: 09-01-2021 End: 10-02-2021 Alcohol intake Current non-drinker of alcohol (finding) [facility] Start: 1950 Sex Assigned At Not on file C [facility] Start: 08-22-2021 End: 10-02-2021 Exposure to SARS-CoV-2 (event) Not sure [facility] Clinical Notes 07-29-2021 to 10-02-2021 Dustin Dooley MD - 10/02/2021 1:00 PM Annamarie Aldridge RN - 10/02/2021 12:50 PM EDTTelephone Encounter - Katie Gaxiola - 09/21/2021 12:10 PM EDTPatient Instructions Note Date & Type Note Facility 10-02-2021 Note HNO ID: [id number] Author: Dustin Dooley MD Service: ? Author Type: Physician Type: Progress Notes Filed: 12/01/2021 8:04 AM Note Text: Gynecologic Oncology [facility] Follow up visit Date of service: 10/02/2021 PROBLEM/CC: Rick Miller presents for a post-op visit. SURGICAL PATHOLOGY [[id number]] Collected: 09/07/21 1104 Order Status: Completed Specimen: Tissue from UTERUS, CERVIX, BILATERAL FALLOPIAN TUBES AND BILATERAL OVARIES Updated: 09/11/21 1319 Case Report -- Surgical Pathology Report ? Case: [id number] ? Authorizing Provider: ?Dustin Dooley MD ? ? ?Collected: ? 09/07/2021 11:04 AM ? Ordering Location: ? ? [facility] ?Received: ?09/07/2021 11:12 AM ? Pathologist: ? Oseas May MD ? Intraop: ? Derick Alvarez MD ? Specimen: ? ?UTERUS, CERVIX, BILATERAL FALLOPIAN TUBES AND BILATERAL OVARIES ? FINAL DIAGNOSIS -- A. Uterus, cervix, bilateral fallopian tubes and bilateral ovaries, hysterectomy and bilateral salpingo-oophorectomy: Cervix: ?Nabothian cysts. ?Negative for cervical stromal involvement by carcinoma. Lower uterine segment: ?Superficial (non-myoinvasive) involvement by endometrial endometrioid adenocarcinoma. Endometrium: ?Endometrial adenocarcinoma, endometrioid type, FIGO grade 2. Myometrium: ?Invasion by endometrial endometrioid adenocarcinoma into the outer half of myometrium (60% myoinvasion). ?Extensive microcystic, elongated and fragmented (MELF) pattern of invasion present. ?Extensive lymphovascular invasion is present. ?Please see comment and synoptic report. Serosa: ?Fibrous adhesions. ? Left Fallopian tube: ?Acute salpingitis. -Negative for carcinoma. ?See comment. Right fallopian tube: ?Endometrial adenocarcinoma present within lymphatic vessels. ?Negative for stromal involvement by tumor. ?See comment. Right and left ovaries: ?Unremarkable ovaries. Diagnosis Comment -- Immunohistochemical staining performed on block A10 shows positive staining for WT 1, calretinin and PAX 8. WT1 immunostain performed on block A11 is also positive consistent with reactive epithelium. Immunohistochemical staining performed on block A16 shows the tumor cells within the lymphatic channels are positive for cytokeratin AE1/3 and PAX 8. They are negative for WT 1 and calretinin. D2-40 highlights the lymphatic channels. ? Slides A10, A11 and A16 were reviewed at the [facility] gynecologic pathology consensus conference via telepathology on 09/09/20[address] Lupe Younger and Andra Franco agree with the diagnosis of acute salpingitis. ? Laboratory Developed Test (LDT) Disclaimer: Performance characteristics of immunohistochemical, immunofluorescent and chromogenic in-situ hybridization tests have been determined by the performing laboratory within [facility]?s [facility] [place] [facility], [facility], [facility] or [facility]) in a manner consistent with CLIA requirements. One or more of these tests have not been cleared or approved by the FDA. [facility] is regulated under CLIA as qualified to perform high-complexity testing. These tests are used for clinical purposes. They should not be regarded as investigational or for research. Positive and negative controls stain appropriately. Synoptic Report -- ENDOMETRIUM ENDOMETRIUM, HYSTERECTOMY - All Specimens 8th Edition - Protocol posted: 12/03/2020 SPECIMEN ?? Procedure: ? ?Total hysterectomy and bilateral salpingo-oophorectomy ?? Specimen Integrity: ? ?Intact TUMOR ?? Tumor Site: ? ?Endometrium ?? Histologic Type: ? ?Endometrioid carcinoma, NOS ?? Histologic Grade: ? ?FIGO grade 2 ?? Two-Tier Grading System: ? ?Low grade (encompassing FIGO 1 and 2) ?? Myometrial Invasion: ? ?Present ?? ? Depth of Myometrial Invasion: ? ?15 mm ?? ? Myometrial Thickness: ? ?25 mm ?? ? Percentage of Myometrial Invasion: ? ?60 % ?? Adenomyosis: ? ?Not identified ?? Uterine Serosa Involvement: ? ?Not identified ?? Lower Uterine Segment Involvement: ? ?Present, superficial (non-myoinvasive) ?? Cervical Stromal Involvement: ? ?Not identified ?? Other Tissue / Organ Involvement: ? ?Not identified ?? Peritoneal / Ascitic Fluid: ? ?Not submitted / unknown ?? Lymphovascular Invasion (LVI): ? ?Present ?? ? : ? ?Extensive (greater than or equal to 3 vessel involvement) MARGINS REGIONAL LYMPH NODES ?? Regional Lymph Node Status: ? ?Not applicable (no regional lymph nodes submitted or found) DISTANT METASTASIS PATHOLOGIC STAGE CLASSIFICATION (pTNM, AJCC 8th Edition) ?? Reporting of pT, pN, and ( (more content not included)... [facility] 10-02-2021 History of Presen t illness Narrative Gynecologic Oncology [facility] Follow up visit Date of service: 10/02/2021 PROBLEM/CC: Rick Miller presents for a post-op visit. SURGICAL PATHOLOGY [[id number]] Collected: 09/07/21 1104 Order Status: Completed Specimen: Tissue from UTERUS, CERVIX, BILATERAL FALLOPIAN TUBES AND BILATERAL OVARIES Updated: 09/11/21 1319 Case Report -- Surgical Pathology Report Case: [id number] Authorizing Provider: Dustin Dooley MD Collected: 09/07/2021 11:04 AM Ordering Location: [facility] Received: 09/07/2021 11:12 AM Pathologist: Oseas May MD Intraop: Derick Alvarez MD Specimen: UTERUS, CERVIX, BILATERAL FALLOPIAN TUBES AND BILATERAL OVARIES FINAL DIAGNOSIS -- A. Uterus, cervix, bilateral fallopian tubes and bilateral ovaries, hysterectomy and bilateral salpingo-oophorectomy: Cervix: Nabothian cysts. Negative for cervical stromal involvement by carcinoma. Lower uterine segment: Superficial (non-myoinvasive) involvement by endometrial endometrioid adenocarcinoma. Endometrium: Endometrial adenocarcinoma, endometrioid type, FIGO grade 2. Myometrium: Invasion by endometrial endometrioid adenocarcinoma into the outer half of myometrium (60% myoinvasion). Extensive microcystic, elongated and fragmented (MELF) pattern of invasion present. Extensive lymphovascular invasion is present. Please see comment and synoptic report. Serosa: Fibrous adhesions. Left Fallopian tube: Acute salpingitis. -Negative for carcinoma. See comment. Right fallopian tube: Endometrial adenocarcinoma present within lymphatic vessels. Negative for stromal involvement by tumor. See comment. Right and left ovaries: Unremarkable ovaries. Diagnosis Comment -- Immunohistochemical staining performed on block A10 shows positive staining for WT 1, calretinin and PAX 8. WT1 immunostain performed on block A11 is also positive consistent with reactive epithelium. Immunohistochemical staining performed on block A16 shows the tumor cells within the lymphatic channels are positive for cytokeratin AE1/3 and PAX 8. They are negative for WT 1 and calretinin. D2-40 highlights the lymphatic channels. Slides A10, A11 and A16 were reviewed at the [facility] gynecologic pathology consensus conference via telepathology on 09/09/2021 [address] Lupe Younger and Andra Franco agree with the diagnosis of acute salpingitis. Laboratory Developed Test (LDT) Disclaimer: Performance characteristics of immunohistochemical, immunofluorescent and chromogenic in-situ hybridization tests have been determined by the performing laboratory within [facility] s [facility] [place] ([facility], [facility], [facility] or [facility]) in a manner consistent with CLIA requirements. One or more of these tests have not been cleared or approved by the FDA. [facility] is regulated under CLIA as qualified to perform high-complexity testing. These tests are used for clinical purposes. They should not be regarded as investigational or for research. Positive and negative controls stain appropriately. Synoptic Report -- ENDOMETRIUM ENDOMETRIUM, HYSTERECTOMY - All Specimens 8th Edition - Protocol posted: 12/03/2020 SPECIMEN Procedure: Total hysterectomy and bilateral salpingo-oophorectomy Specimen Integrity: Intact TUMOR Tumor Site: Endometrium Histologic Type: Endometrioid carcinoma, NOS Histologic Grade: FIGO grade 2 Two-Tier Grading System: Low grade (encompassing FIGO 1 and 2) Myometrial Invasion: Present Depth of Myometrial Invasion: 15 mm Myometrial Thickness: 25 mm Percentage of Myometrial Invasion: 60 % Adenomyosis: Not identified Uterine Serosa Involvement: Not identified Lower Uterine Segment Involvement: Present, superficial (non-myoinvasive) Cervical Stromal Involvement: Not identified Other Tissue / Organ Involvement: Not identified Peritoneal / Ascitic Fluid: Not submitted / unknown Lymphovascular Invasion (LVI): Present : Extensive (greater than or equal to 3 vessel involvement) MARGINS REGIONAL LYMPH NODES Regional Lymph Node Status: Not applicable (no regional lymph nodes submitted or found) DISTANT METASTASIS PATHOLOGIC STAGE CLASSIFICATION (pTNM, AJCC 8th Edition) Reporting of pT, pN, and (when applicable) pM categories is based on information available to the pathologist at the time the report is issued. As per the AJCC (Chapter 1, 8th Ed.) it is the managing physician s responsibility to establish the final pathologic stage based upon all pertinent information, including but potentially not limited to this pathology report. pT Category: pT1b pN Category: pN not assigned (no nodes submitted or found) FIGO STAGE FIGO Stage: IB Gross Description -- A. UTERUS, CERVIX, BILATERAL FALLOPIAN TUBES AND BILATERAL OVARIES. Received in formalin labeled uterus cervix bilateral fallopian tubes and bilateral ovaries is a uterus with attached cervix and attached bilateral fallopian tubes and ovaries weighing overall 129 g. The uterus and attached cervix measures 9.5 x 6.5 x 3.5 cm. The serosal surface is purple pink and dull with possible hemorrhagic powder henderson. The ectocervix is pink white smooth and glistening. The cervical os is [place] in contour. Upon opening, the endocervical canal measures 3.4 cm in length and is unremarkable. Upon sectioning the cervix, a 0.6 cm smooth lined clear fluid-filled cystic structure is located at the 6 o'clock position. The endometrial cavity measures 4 cm in length and 4 cm in width. The entire endometrium consists of a pink lamar fungating and friable mass (4 x 4 cm). The mass is located 3.5 cm from the cervical os and 0.3 centimeters from the lower uterine segment on the posterior aspect. Upon sectioning, the mass invades 1.1 cm into the underlying myometrium (greater than 50%) and is 0.6 cm from the overlying serosal surface. A 2 cm hemorrhagic cavitation is located on the posterior wall underneath the invading mass. No on involved endometrium is grossly appreciated. The myometrium measures 1.6 cm in thickness. No intramural nodules are identified. The left fallopian tube with attached fimbriated end is surrounded by adipose tissue and measures 6.5 cm in length and 0.8 cm diameter. The fimbriated end is normal and villous. The outer surface of the tube is purple lamar smooth and glistening with no paratubal cysts identified. Sectioning reveals unremarkable lumen. The left ovary measures 2.7 x 1.8 x 0.8 cm and weighs 3 g. The outer surface is lamar pink and wrinkled. Sectioning reveals fibrous ovarian parenchyma with no lesions identified.The right fallopian tube with attached fimbriated end measures 7 cm in length and 0.8 cm in diameter. The fimbriated end is normal and villous no paratubal cysts are identified. Sectioning reveals unremarkable lumen. The right ovary weighs 4 g and measures 3 x 2 x 1.2 cm. The outer surface is pink lamar and wrinkled. Sectioning reveals fibrous ovarian parenchyma with no lesions identified. Nurse Tech sections are submitted as follows: A1-anterior cervix A2-posterior cervix demonstrating cystic structure A3-posterior lower uterine segment A4 A6-anterior uterine wall demonstrating mass from fundus to lower uterine segment, full-thickness A7 A9-posterior uterine wall demonstrating mass from fundus to lower uterine segment, full-thickness (A8 A9 demonstrates hemorrhagic cavitation) A 10 A 11-left fallopian tube fimbriated end bisected A 12-left fallopian tube into mid cross-sections A 13-left ovary A 14 A 15-right fallopian tube fimbriated end bisected A 16-right Fallopian tube mid cross-section A 17-right ovary Gross examination performed at [facility], [address] [place] [address] CLIA#[id number] [facility] September 08, 2021 10:33 AM Intraoperative Diagnosis -- A. UTERUS, CERVIX, BILATERAL FALLOPIAN TUBES AND BILATERAL OVARIES. Gross diagnosis: Uterus, cervix, bilateral fallopian tubes, bilateral ovaries- Endometrial tumor grossly invading greater than 50% into the uterine wall (AC) HPI: Rick Miller is a 70 year old female who recently had had a biopsy done with the result being grade 2 endometrioid endometrial cancer. Reports that she has been having post-menopausal bleeding for >1 month. She has pelvic pain with this as well, and the pain started after the bleeding. At worst, she was passing clots and having to change a pad q 2-4 hours. She was seen in the ER in July for this and she was HD stable at this time, and pelvic ultrasound showed endometrial thickening and a cervical mass. She was seen by Dr. Erazo (gynecology) and had EMB with cervical biopsies performed which demonstrated FIGO grade 2 endometrial adenocarcinoma. She was then referred to medical oncology who ordered CT scans and CA 125. 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 Reports normal pap smears in the past. Denies h/o HPV. [facility]. Not currently sexually active. She says she was told her had endometrial hyperplasia before in the past and this was treated with oral progesterone. She says the hyperplasia was successfully treated, and she believes this was when she was in her 20-30's. Last office visit: 08/21/2021 HISTORIES: PAST MEDICAL HISTORY Diagnosis Date Bipolar disorder with depression (HCC) History of seizures Hypertension Living in assisted living Major depressive disorder Malignant neoplasm of endometrium (HCC) Mixed hyperlipidemia MYALGIA AND MYOSITIS NOS 07/15/2005 Obesity TOBACCO USE DISORDER 07/15/2005 Type 2 diabetes (HCC) PAST SURGICAL HISTORY Procedure Laterality Date FOOT SURGERY HX 06/06/2003 fx foot REMOVAL OF OVARY/TUBE(S) Bilateral 09/07/2021 [facility], UTERUS 250 G OR LES 09/07/2021 w/ EUA FAMILY HISTORY Problem Relation Age of Onset Coronary Artery Disease Mother Diabetes Mother Coronary Artery Disease Father Stroke Father Uterine Cancer No Family History Breast Cancer No Family History Prostate Cancer No Family History Colon Cancer No Family History SOCIAL HISTORY: Social History Tobacco Use Smoking status: Former Smoker Packs/day: 0.50 Years: 20.00 Pack years: 10.00 Types: Cigarettes Smokeless tobacco: Never Used Substance Use Topics Alcohol use: No Drug use: No Marital Status: PAST GYNECOLOGIC HISTORY: OB History T0 L2 SAB0 IAB0 Ectopic0 Multiple0 Live Births0 Comment: x 2 LMP: No LMP recorded. Patient is postmenopausal. Allergies As of Date: 07/29/2021 Allergen Noted Reaction CIPRO [CIPROFLOXACIN] 08/11/2005 Shortness of Breath FISH CONTAINING PRODUCTS 02/10/2016 Hives PENICILLINS 07/15/2005 RED DYE 02/10/2016 Hives SULFA (SULFONAMIDE ANTIBIOTICS) 07/15/2005 HEALTH MAINTENANCE: Last pap: Last mammogram: Last colonoscopy: ALLERGIES Allergen Reactions Ciprofloxacin Shortness of Breath, Anaphylaxis Fish Containing Pro* Hives Red Dye Hives Iodinated Contrast * Rash Metformin Diarrhea, GI Upset, Vomiting Penicillins Rash Shellfish Derived Diarrhea, Vomiting Sulfa (Sulfonamide * Rash Mold Rash Paliperidone Rash polyethylene glycol 3350 (MIRALAX, GLYCOLAX) 17 gram packet Take 1 Packet by mouth once daily. Dissolve dose in 4 - 8 ounces of liquid and take as directed. traMADol (ULTRAM) 50 mg tablet Take 1 tablet by mouth every 6 hours as needed for pain. mag hydrox/aluminum hyd/simeth (ANTACID SUSPENSION ORAL) Take 30 mL by mouth. Every 4 hrs as needed Miconazole powd twice daily. atorvastatin (LIPITOR) 40 mg tablet Take 40 mg by mouth daily at bedtime. dextrose (GLUCOSE GEL ORAL) Take by mouth. insulin lispro (HUMALOG) 100 unit/mL injection Inject subcutaneously three times daily before meals. insulin glargine (LANTUS SOLOSTAR U-100 INSULIN) 100 unit/mL (3 mL) Inject 65 Units subcutaneously daily at bedtime. lisinopril (ZESTRIL, PRINIVIL) 5 mg tablet Take 5 mg by mouth once daily. triamcinolone-niacinamide 0.1-4 % cream Apply to affected area. dulaglutide (TRULICITY) 1.5 mg/0.5 mL pen injector Inject 1.5 mg subcutaneously one time a week. cholecalciferol, Vitamin D3, (VITAMIN D3) 50,000 unit cap capsule Take 1 capsule by mouth once each week. QUEtiapine XR (SEROQUEL XR) 300 mg 24 hr tablet Take 2 tablets by mouth daily at bedtime. clonazePAM (KLONOPIN) 0.5 mg tablet Take 1 tablet by mouth three times daily as needed. lamoTRIgine (LAMICTAL) 100 mg tablet Take 1 tablet by mouth once daily. INTERVAL HISTORY: Recovering well from her surgery. No vaginal bleeding. No abdominal pain. PHYSICAL EXAM: 10/02/2021 VITALS: BP 152/85 Pulse 103 Temp 36.3 C (97.4 F) Resp 20 Ht 5' 5 (1.651 m) Wt (!) 301 lb (136.5 kg) SpO2 98% BMI 50.09 kg/m GENERAL: Appears well. She is here with a caregiver from the facility where she lives. Her incisions have healed well. Abdomen non-tender. Consulting Technical Director for exam: Sherrie RESULTS: 07/26/21: ULTRASOUND The uterus is anteverted and is in a midline position. The uterus measures 9.0 x 6.0 x 3.8 cm. 1.2 cm hypoechoic mass in the endocervical canal worrisome for cervical carcinoma. Clinical correlation is recommended. The endometrium measures 18 mm in thickness, and is hyperechoic. There is no demonstrated endometrial mass. There is no demonstrated myometrial mass. I.U.D. - The patient does not have an I.U.D. The ovaries are not visualized.. There is no fluid in the cul-de-sac. 08/07/2021 CT OF ABD/PEL W IVCON Abdomen/Pelvis without Cont on 08-07-2021 Abdomen/Pelvis without Cont [facility] Imaging Services [address] [place] [address] Abdomen/Pelvis without Cont MR#: [id number] Acct: [id number] Name: RICK MILLER Rep #: [id number] : 1950 F 70 From: Power Lopez MD PCP: Dr. Shayna Malhotra MD Status: REG CLI Study: Abdomen/Pelvis without Cont Date of Exam: 09/25 Exam# [id number] Ordering Dr: Saad Villagomez MD STUDY: CT ABDOMEN AND PELVIS WITHOUT CONTRAST REASON FOR EXAM: Female, 70 years old. Cervical mass noted on ultrasound RADIATION DOSAGE (If Supplied By Facility): CTDIvol = ( 22.15 ) mGy, DLP = ( 1156.43 ) mGycm TECHNIQUE: Transaxial images were obtained from the dome of the diaphragm to the symphysis pubis without oral contrast, and without intravenous contrast. Sagittal and coronal images were reconstructed. Individualized dose optimization techniques were used for this CT. COMPARISON: Ultrasound from 07/26/2021. ___ FINDINGS: The visualized lung bases are unremarkable. The visualized portions of the heart are within normal limits. There is decreased attenuation of the liver consistent with steatosis. There are multiple gallstones. Normal spleen. Normal pancreas. There is a 3.79 cm circumscribed, smooth, low attenuation left adrenal mass, consistent with an adrenal adenoma. ACR White Paper guidelines (Godoy-Parrish, et al. JACR 2017; 14(8):6125-7175) suggest no imaging follow-up is necessary. ACR White Paper guidelines (Godoy-Parrish, et al. JACR 2017; 14(8):8439-4516) suggest no imaging follow-up is necessary. Consider biochemical assays to determine functional status and exclude pheochromocytoma if biopsy/resection is planned. Normal right adrenal gland. Normal right kidney. Normal left kidney. Normal visualized stomach. Normal small intestine. Retained stool noted throughout the colon The appendix is visualized and appears normal. Appendix seen on coronal recon images 71-81 Normal abdominal aorta. Normal inferior vena cava. Normal retroperitoneum. Normal urinary bladder. Uterus is present, the endometrium cannot be accurately evaluated with CT. Previous ultrasound suggested a cervical mass, this is not appreciated on CT. MRI would be a much more sensitive way to evaluate the female pelvis Normal abdominal wall. There are diffuse degenerative changes of the visualized lumbar spine. ___ CT/Abdomen/Pelvis without Cont IMPRESSION: Fatty liver, no discrete lesion 3.79 cm well-defined left adrenal lesion, likely adenoma Uterus is present, the endometrium and cervix cannot be accurately evaluated with CT. No free intraperitoneal fluid, air, or suspicious adenopathy Normal appendix visualized Degenerative bony changes PATHOLOGY 07/29/21: 1. Cervix at 3 o'clock, biopsy (A) - Ectocervix with atrophy and chronic inflammation. - Negative for squamous dysplasia and neoplasm. 2. Cervix at 6 o'clock, biopsy (B) - Ectocervix with atrophy and chronic inflammation. - Negative for squamous dysplasia and neoplasm. 3. Cervix at 9 o'clock, biopsy (C) - Detached fragment of endometrioid adenocarcinoma. - Ectocervix with atrophy and chronic inflammation. 4. Cervix at 12 o'clock, biopsy (D) - Ectocervix with atrophy and chronic inflammation. - Negative for squamous dysplasia and neoplasm. 5. Endocervix, curetting (E) - Predominantly blood with rare segments of benign endocervix and ectocervix. 6. Endometrium, biopsy (F) - Superficial sample of endometrioid adenocarcinoma with mucinous and focal squamous differentiation, FIGO grade 2. No results found for: CA125 ASSESSMENT & PLAN: 08/21/2021 Discussed endometrial cancer diagnosis with patient and caregiver (Arianna from [facility]). Discussed recommendations for treatment including TLH-BSO, sentinel lymph nodes, possible laparotomy. Reviewed possible need for adjuvant therapy after surgery pending surgical findings and final pathology. Reviewed risks, benefits, and alternatives to surgery. The risks of surgery discussed including bleeding, infection, injury to surrounding organs including GI, , nerve or vascular structures. Possible blood clot following surgery was discussed. Average recovery following minimally invasive and open procedure was discussed. Discussed alternatives to surgery would include primary radiation with or without chemotherapy. Patient would like to proceed with surgery. Consents signed. Patient willing to accept blood products if deemed medically necessary. Reviewed prior records from [facility] and Dr. Villagomez (medical oncologist) office. Requested images from CT A/P and ultrasound to be uploaded for review. Noted elevated CA 125. Plan to proceed with surgery in September. Will need preoperative anesthesia appointment. Contact information for [facility]: nurse line [phone]; front end software developer [phone]. Documentation from my notes of previous visit was copied and pasted, documentation has been reviewed and edited as necessary and is current for today. 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 Risk factors for recurrence include tumor size of 4 cm, Lymphatic vessel involvement in the uterus and fallopian tube, dept of invasion, and her age. She is considered high intermediate risk of recurrence, with an estimated risk of recurrence of approximately 25% without agimen therapy. I have recommended adjuvant therapy. My recommendation would be whole pelvic radiation giving the absence of pelvic lymph node assessment and the MELF pattern of involvement, size of tumor, and her age. Whole pelvic radiation is an appropriate regimen therapy for women with these risk factors according to NCCN guidelines. Patterns of recurrence was discussed with her as well as signs and symptoms of recurrent cancer were discussed. Plan: At this point, she is declining all adjuvant therapy. She says that she feels the cancer is not likely to come back and this is her reason for declining. The success of treatment for recurrent cancer were reviewed with her. The time frame for starting adjuvant therapy is normally 6-8 weeks following surgery, if she changes her mind she can call the office and we will arrange referral to radiation treatment center in [place], [place] five minutes from where she lives. Cancer surveillance visits discussed with her and I have asked her to see me in 4 months for another cancer surveillance visit. She will call sooner if she has any symptoms that were discussed today. Documentation from my notes of previous visit of Visit date not found was copied and pasted, documentation has been reviewed and edited as necessary and is current for today. ATTESTATION: By signing my name below, I, Charley Hernandezdesi, attest that this documentation has been prepared under the direction and in the presence of Dustin Dooley MD. Electronically signed:Frannie Cho, October 04, 2021 6:40 AM I agree with the Chief Complaint, ROS, and Past Histories independently gathered by the clinical unit support representative and the remaining scribed note accurately describes my personal service to the patient. documented in this encounter [facility] 10-02-2021 Nurse Note Patient arrived amb A&Ox4 in [facility] for post op visit. Patient admits to pain in abd and lower back resolved since surgery. Pt denies any new concerns, today. Pt here with sepideh Everett. Enc and support provided. Moriah Aldridge RN documented in this encounter [facility] 09-21-2021 Miscellaneous Notes Spoke to Nurse Bernadine from [facility] stated that the patient is in the hospital and she will call when the patient comes out. So 09/22/21 appt in this office with Dr. Dooley has been cancelled. Katie Gaxiola 09/21/21 documented in this encounter [facility] 09-10-2021 Miscellaneous Notes Called [facility] left message on nurse line to call back regarding patient's urine culture. Pt had +culture for proteus mirabilis was sent home on macrobid which is resistant to so pt need not take. Was given a dose of cefazolin prior to surgery so may have taken care of uti. All other po meds bacteria is resistant to or pt is allergic to. meds that are susceptible are iv. residential can recheck urine if still + then would need to get ID involved verbal instructions per Dr julieth Balderas APRN.LINING VAMPER documented in this encounter [facility] 09-09-2021 Miscellaneous Notes Franklin from [facility] returned call to this RN. Reviewed message from Sebas Dooley MD. Instructed Franklin to monitor patient's lap site and call office if worsens or if any other complications arise. Franklin verbalized understanding. Summer Turcios RN Per Sebas Dooley MD: Nothing else to do. ( message sent to this RN via confidential e-mail) Attempted to call Franklin at [facility] to review above message, no answer. Left message on voicemail to return call. Summer Turcios RN Franklin, ceo & board director at [facility] called stated, one of patient's lap sites opened a little and a scant amount of blood was noted . Franklin stated they reinforced the surgical glue/lap site with steri-strips. No other issues at this time. Per Franklin, patient continues with some tenderness, taking Tylenol and Mortin. Stated Tramadol should be delivered from the pharmacy today. He is calling to make sure there is nothing additional you would like them to do, please advise. Thanks! (this message sent to Sebas Dooley MD via confidential e-mail). Summer Turcios RN documented in this encounter [facility] 09-08-2021 Note HNO ID: [id number] Author: Sam Naidu DO Service: Gynecology Oncology Author Type: Resident Type: Progress Notes Filed: 09/08/2021 7:13 AM Note Text: GYNECOLOGY POST-OP PROGRESS NOTE SERVICE DATE: 09/08/2021 SERVICE TIME: 6:21 AM POST OP DAY: # 1 Subjective Patient denies any complaints at this time. Pain is well-controlled. Tolerating p.o. diet. Overnight had roast beef and a turkey sandwich. Denies nausea. Denies vomiting. Denies shortness of breath. Denies chest pain. Ambulating. Passing flatus. Voiding spontaneously. Did note some dysuria this AM Objective Vitals: 09/07/21 1546 09/07/21 1550 09/07/21 1942 09/07/21 2335 BP: 152/91 127/72 120/66 Pulse: 95 95 94 Resp: 18 18 18 Temp: 36.2 ?C (97.2 ?F) 36.7 ?C (98.1 ?F) TempSrc: Oral Oral SpO2: 97% 95% 95% Weight: 128.8 kg (284 lb) Height: 165.1 cm (5' 5 ) I/O: Date 09/07/21 0700 - 09/08/21 0659 Shift 2346-6976 8420-5808 1175-2751 24 Hour Total PO 360 360 PO 360 360 IV 2502 731 0079 Volume (mL) (ceFAZolin 3 g in D5W 100 mL (ANCEF)) 100 100 Volume (mL) (NaCl 0.9% iv infusion) 500 500 Volume (mL) (lactated ringers iv infusion) 1300 1300 Volume (mL) (lactated ringers iv infusion) 300 300 Shift Total 1988 037 4177 Urine 1000 1000 Void (ml) 1000 1000 Urine Incontinence/Not Saved 1 x 1 x Shift Total 1000 1000 Weight (kg) 128.8 128.8 128.8 Physical Exam: General: In no apparent distress. Oriented x3 and appropriate. Morbidly obese. Comfortable. Cardiovascular: Regular rate and rhythm. S1, S2 regular. No willi, rub or murmur noted. Pulmonary: Lungs clear to all gonzalez. Abdomen: Soft, appropriately tender, non-distended. Laparoscopic sites c/d/i with skin glue. Some bruising surrounding infraumbilical lap site. EXTREMITIES: No calf tenderness, lower extremity edema equal bilaterally. Sequential Compression Devices intact. LABS/IMAGING: Diagnostic tests reviewed for today's visit: Most recent labs CBC, Coags, BMP, Mg, Phos Recent Labs 09/07/21 1657 WBC 8.23 HB 14.2 HCT 44.0 PLT 153 NA 132* K 4.9 CHLOR 97 CO2 22 BUN 13 CREAT 0.70 GLUC 303* CA 9.2 Recent Labs 09/07/21 20509/07/21 1653 09/07/21 1255 09/07/21 0704 PCGLUCOSE 306* 281* 285* 264* MEDICATIONS: Current Facility-Administered Medications Medication Dose Route Frequency Provider Last Rate Last Admin - insulin lispro pen (rapid acting) (HumaLOG KWIKPEN) SUBCUTANEOUS w MEALS Rowan Lines, DO - clonazePAM 0.5 mg tab(s) (KlonoPIN) 0.5 mg ORAL TID PRN Sam Naidu, DO 0.5 mg at 09/07/212103 - lamoTRIgine 100 mg tab(s) (LaMICtal) 100 mg ORAL DAILY Sam Naidu, DO - sodium chloride 0.9 % (flush) 2-10 mL (BD POSIFLUSH) 2-10 mL INTRAVENOUS q 12 H Sam Naidu, DO 10 mL at 09/07/21 1631 - polyethylene glycol 3350 17 g packet (MIRALAX, GLYCOLAX) 17 g ORAL DAILY Sam Naidu, DO 17 g at 09/07/21 1630 - enoxaparin 40 mg injection (LOVENOX) 40 mg SUBCUTANEOUS q 24 HR Sam Naidu, DO - NaCl 0.9% iv flush bag 20 mL INTRAVENOUS PRN Sam Naidu, DO - sodium chloride 0.9 % (flush) 3-5 mL (BD POSIFLUSH) 3-5 mL INTRAVENOUS q 12 H Sam Naidu, DO 5 mL at 09/07/212055 - ondansetron orally disintegrating 4 mg tab(s) (ZOFRAN ODT) 4 mg ORAL q 6 H PRN Sam Naidu, DO Or - ondansetron (PF) 4 mg injection (ZOFRAN) 4 mg INTRAVENOUS q 6 H PRN Sam Naidu, DO - acetaminophen 1,000 mg tab(s) (TYLENOL) 1,000 mg ORAL q 8 H Sam Naidu, DO 1,000 mg at 09/08/21511 - keTORolac 15 mg injection (TORADOL) 15 mg INTRAVENOUS q 6 H Sam Naidu, DO 15 mg at 09/08/21511 Followed by - ibuprofen 600 mg tab(s) (MOTRIN) 600 mg ORAL q 6 H Sam Naidu, DO - traMADol 50-100 mg tab(s) (ULTRAM) 50-100 mg ORAL q 6 H PRN Sam Naidu, DO - dextrose 40 % 15 g 15 g ORAL PRN Sam Naidu, DO Or - glucagon 1 mg injection 1 mg INTRAMUSCULAR PRN Sam Naidu, DO Or - dextrose 50% in water 25 mL syringe 12.5 g INTRAVENOUS PRN Sam Naidu, DO - insulin lispro pen (rapid acting) (HumaLOG KWIKPEN) SUBCUTANEOUS AT BEDTIME Sam Naidu, DO 3 Units at 09/07/212053 - QUEtiapine 300 mg (SEROquel) 300 mg ORAL BID Sam Naidu, DO 300 mg at 09/07/212051 Medication and Non-Pharmacologic VTE Prophylaxis/Anticoagulants Active VTE Risk Category Order: 09/07/21 154 VTE RISK CATEGORY: SURGICAL HIGH RISK ([place] Active VTE Medication Orders: Anticoagulant AND Antiplatelet Medications (From admission, onward) Start Dose Route Frequency Last Action Ordered Stop 09/08/21 0900 enoxaparin 40 mg injection (LOVENOX) (Surgical Risk Categories) 40 mg SUBCUTANEOUS EVERY 24 HOURS Ordered 09/07/211541 -- Active VTE Prophylaxis Orders: 09/07/21 154 PNEUMATIC COMPRESSION STOCKINGS ([place]) 09/07/211544 ACTIVITY - MOBILIZE PATIENT ([place]) VTE Prophylaxis: VTE prophylaxis appropriate Assessment/Plan Rick Miller is a 70 year old year old female POD#1 s/p EUA, TLH-BSO for endometrial cancer #Postoperative care - VSSAF - VTE (more content not included)... [facility] 09-07-2021 Note HNO ID: [id number] Author: Hieu Raymond APRN.LIFE SKILLS TRAINER Service: Anesthesiology Author Type: Nurse Miller [employer]ried Salt Type: Anesthesia Procedure Notes Filed: 09/07/2021 9:28 AM Note Text: ANESTHESIOLOGY PROCEDURE NOTE Airway General Information Procedure Start Time/Medication Administration: 09/07/2021 8:29 AM Patient location during procedure: OR Timeout Performed Pre-procedure: timeout performed Consent Obtained: Yes Patient identity confirmed: arm band Staffing LIFE SKILLS TRAINER: Hieu Raymond APRN.LIFE SKILLS TRAINER Performed by: ANURAG Indications and Patient Condition Preoxygenated: yes Patient position: sniffing, ramp and reverse Trendelenburg Manual In-Line Stabilization: No Difficult Mask: No Indications for airway management: anesthesia anesthesia circuit Method: modified rapid sequence Cricoid Pressure: Yes Airway Accessory: oral airway Final Airway Details Final airway type: endotracheal airway Final Endotracheal Airway: ETT Cuffed: yes Successful intubation technique: video laryngoscopy Devices used: Ipropertyz Endotracheal tube insertion site: oral Blade: Osman Blade size: #3 ETT size (mm): 7.5 Measured from: gums Measurement (cm): 22 Placement verified by: chest auscultation and capnometry Cormack-Lehane Classification: grade IIb - view of arytenoids or posterior of glottis only Number of attempts at approach: 2 (initial attempt via direct laryngoscopy was unsuccessful) Ventilation between attempts: 2 hand mask Other Attempts Unsuccessful attempted endotracheal techniques: direct laryngoscopy Failed airway: no Unrecognized esophageal intubation: no Difficult airway SIGNATURE: Hieu Raymond APRN.LIFE SKILLS TRAINER PATIENT NAME: Rick Miller DATE: September 07, 2021 TIME: 9:25 AM CSN: [id number] [facility] 09-01-2021 Instructions Naila Barrientos APRN.LINING VAMPER - 09/01/2021 3:11 PM EDT PATIENT PREOPERATIVE INSTRUCTIONS Your surgeon has scheduled for your procedure at this surgery center: Dr. Dooley has scheduled you for your procedure at this surgery center [facility]: [phone], [address], [place] [address] Enter the hospital through the main entrance and proceed directly to the Surgery Welcome Center. As you enter the Surgery Welcome Center and sign in with the sales receptionist, we may ask for your photo ID and insurance information. As surgery times and preparations for surgery vary with each patient, you may be taken out of order in which you registered. Please read below carefully for your personalized instructions. Arrival Time for Surgery: DATE: 09/07/21 OR TIME: 0800 CHECK IN TIME: 0600 This allows enough time for pre-surgical registration, anesthesia personnel and to be prepared for your surgery. If your surgeon has given you another time that is not listed here, please call the surgeon office to clarify the time. Unfortunately, emergencies or cancellations cannot be predicted and can affect your estimated surgery time. If this happens to you, we appreciate your patience. We will make every attempt to keep you and your family informed of changes as they occur. Due to the rise in covid please keep in contact with your surgeon for any concerns regarding changes and delays about your surgery. Dietary Restrictions: - Nothing to eat or drink after midnight. You may have 12 ounces of clear liquids ( water, Gatorade, apple juice, carbonated beverage, clear tea or black coffee) until 4 hours before your scheduled surgery. This is important because if you do, your surgery may have to be cancelled Blood Thinning Medications: - Stop NSAIDS (Ibuprofen, Advil, Aleve, Motrin, Celebrex, Mobic, voltaren, diclofenac etc.) 7 days before surgery, as directed by your surgeon. You may take Tylenol (Acetaminophen) or any of your pain medications that do not contain aspirin or NSAIDS as needed. --If you take any of the following blood thinners: (Aspirin , Coumadin, Plavix, Eliquis, Pradaxa, Xarelto, Lovenox, Brilinta, Effient, Savaysa, Arixtra, etc ), PLEASE CONTACT YOUR SURGEON AND THE PHYSICIAN WHO PRESCRIBES IT FOR YOU IN ORDER TO GET PERIOPERATIVE INSTRUCTIONS SOON POSSIBLE. - Stop Vitamin E, fish oil, multivitamins, Marijuana, CBD oil and other over the counter herbals and dietary supplements 7 days before surgery. Medications: Approved medications to take the morning of surgery with a sip of water: BP, HCTZ, Heart, thyroid, psych, seizure, flomax , antacids and pain medications excluding NSAIDS. Use inhalers as prescribed. Please bring inhalers. Diabetes Please follow up with the provider that manages your diabetes and how to prepare you for surgery. If you are taking the following medications for Type 2 diabetes: Canagliflozin (INVOKANA), dapagliflozin (FARXIGA), and empagliflozin (JARDIANCE) should each be discontinued at least 3 days before scheduled surgery. Ertugliflozin (STEGLATRO) should be discontinued at least four days before scheduled surgery. If you are having surgery at the [facility], please bring your glucometer Pain Medications: You may take tylenol for pain Medications to be taken with small amount of fluid on the morning of surgery: * REFER TO MEDICATION LISTED PROVIDED WITH YOUR AFTER VISIT SUMMARY . If you start any new medications after today's visit, please contact the surgeon's office. Important Reminders: - If you use CPAP/BIPAP, it is recommended that you bring the machine with you to the surgery center. - If you are prescribed inhalers for breathing, continue using them AND bring them to the surgery center. - if you have a stimulator, implant or pump that requires a remote please bring the remote with you day of surgery. - Candy, mints, gum and tobacco products are NOT permitted the morning of surgery. - Hearing aids, dentures and glasses may be worn the morning of surgery. - NO jewelry, body piercings, makeup, hairpins or contacts are to be worn the day of surgery. If you have jewelry that can not be removed, you must call the surgeon's office and let the surgeon advise you on how to proceed. -Oral hygiene and a shower or bath is required the evening before or the morning of surgery. - NO lotion, creams, powders or deodorants on the skin the day of surgery -Wear loose, comfortable clothing that will accommodate bandages. -Your length of stay will be determined by your surgeon - No Covid vaccines with in 72 hours of your surgery. - You will need to have someone else (Family or friend) drive you home once discharged from the hospital. You are not allowed to drive yourself home after surgery. - YOU MUST HAVE A RESPONSIBLE EXTENSION SERVICE AGENT TAKE YOU HOME. A CHAMBER OF COMMERCE DIVISION MANAGER, CAB OR UBER EXTENSION SERVICE AGENT CANNOT BE MADE A RESPONSIBLE EXTENSION SERVICE AGENT. - We recommend that a responsible person stays with you overnight to take care of you. - You cannot stay in a hotel alone after outpatient surgery. You will not be permitted to have your surgery, if you do not have someone to take care of you. CCAG: Each visitor is allowed two visitors (age18+) The visitor may be different each day. Visitors can only enter the building once each day. Visitors cannot leave the building and then return for a separate visit later that same day. Visitors must keep their masks on while inside a patient s room, whether or not the visitor is vaccinated and whether or not the patient is COVID-19 positive. If visitors do not follow [facility] masking guidelines, caregivers can ask them to leave the facility and restrict their visitation privileges. For support, contact Elizabeth at [phone] or [email or web address]. The visitor will be allowed to stay with the patient prior to going to the surgery or procedure. Due to limited seating and social distancing, we may ask you to wait outside of the waiting room during surgery. No visitors are permitted in the recovery room. Post surgery, the surgeon will call the visitor for the update with the exception of endoscopy patients. The visitor will be called by the PACU staff for discharge instructions and will then instruct the visitor for merchandise pickup/receiving associate directions Visitors who have tested positive for COVID-19 are permitted to visit a patient if it has been at least 10 days since testing positive. If a visitor has been exposed to someone who tested positive for COVID-19: If they are not fully vaccinated, they can visit a patient 14 days after exposure. If they are vaccinated and asymptomatic, they can visit a patient with proof of vaccination. If you develop symptoms such as a fever, cold, or flu, or have other changes to your health within TWO DAYS of scheduled surgery or the morning of surgery, please contact the surgery center above. Personal Belongings: - Leave ALL valuables and money at home or with family members. - You will have to wear a hospital gown during your stay but if you wish to bring undergarments for after surgery you may. Any questions regarding length of surgery, surgery procedure and post operative care should be be addressed to your surgeon Anesthesia suggested reading: Bouchra Harris, Prepare for Surgery, Heal Faster: A Guide of Mind Body Techniques ([place], [place]; [employer]: Fourth Edition) 2011 Naila Barrientos APRN.CNP 09/01/21 documented in this encounter [facility] 09-01-2021 History and physical note HISTORY AND PHYSICAL EXAMINATION SERVICE DATE: 09/01/2021 SERVICE TIME: 3:07 PM PRIMARY CARE PHYSICIAN: No primary care provider on file. REASON FOR VISIT: Rick Miller is a 70 year old female who is scheduled for Procedure(s): EXAM UNDER ANESTHESIA PELVIC / VAGINAL (N/A) LAPAROSCOPIC HYSTERECTOMY TOTAL FOR UTERUS 250 G OR LESS W/REMOVAL TUBE(S) AND/OR OVARY(S) (N/A) LAPAROSCOPY SURGICAL W/RETROPERITONEAL LYMPH NODE SAMPLING SINGLE OR MULTIPLE (N/A) LAPAROTOMY PELVIC (N/A) at the request of Dr. Dustin Dooley for routine H&P. My final recommendation will be communicated back to the requesting physician by way of shared medical record or letter. Subjective The patient has the following: ACTIVE PROBLEM LIST Tobacco Use Disorder Systemic Lupus Erythematosus (Hcc) Myalgia and Myositis, Unspecified Elevated Transaminase Level Elevated Blood Sugar Mood Disorder (Hcc) COVID-19 Immunization Status Overdue - COVID-19 VACCINE (1) Overdue - never done No completion, postpone, frequency change, or communication history exists for this topic. CHIEF COMPLAINT: Endometrial cancer (HCC) (C54.1) HPI: Rick Miller is a 70 year old female present in presurgical testing.She lives in an assisted living facility. She had post menopausal bleeding since 08/03/21. She went to the emergency room and she had an ultrasound. She had biopsies of the uterus and it was cancer. She rates the pain 0/10.Shehas had heavy bleeding and clotting. Surgery was recommended and she agrees to proceed as planned. She is scheduled for EXAM UNDER ANESTHESIA PELVIC / VAGINAL ,LAPAROSCOPIC HYSTERECTOMY TOTAL FOR UTERUS 250 G OR LESS W/REMOVAL TUBE(S) AND/OR OVARY(S) ,LAPAROSCOPY SURGICAL W/RETROPERITONEAL LYMPH NODE SAMPLING SINGLE OR MULTIPLE,LAPAROTOMY PELVIC on 09/07/[address] Dooley. Surgery will be at [facility] Scheduled as an TBA Have you been in contact with someone with known coronavirus/Covid 19? no Have you had surgery or pre testing at [facility] in the past 3 years? no REVIEW OF SYSTEMS: General: No weight loss, malaise or fevers. Neurological: Positive for: seizures (no recent seizure last date unknown). Negative for: headaches and strokes. Respiratory: No history of current cough or dyspnea, or pneumonia in the past 6 weeks. No history of respiratory/pulmonary symptoms or problems. Negative for: asthma, COPD, tobacco use and obstructive sleep apnea. Cardiovascular: Positive for: hyperlipidemia and hypertension Negative for: AICD/PPM, chest pain, CHF, recent RI and open heart surgery. GI: Positive for: abdominal pain Negative for: nausea and vomiting. : No history of dysuria, frequency or incontinence, stones or chronic kidney disease. No difficulty urinating, nocturia > 1 time per night or hematuria. POND SCALER: S/p menopause Endocrine: Positive for: diabetes mellitus. Negative for: hypothyroidism. Hematology: No history of bleeding or clotting disorder. Patient is not taking anti-coagulation or platelet medications. No history of hematological symptoms or problems. Oncology: + endometrial cancer Psych: Positive for: anxiety, bipolar disorder and depression. Musculoskeletal: Negative for joint pain or swelling, back pain or muscle pain. Skin: Negative for lesions, rash and itching. PAST MEDICAL HISTORY Diagnosis Date Bipolar disorder with depression (HCC) History of seizures Hypertension Living in assisted living Major depressive disorder Malignant neoplasm of endometrium (HCC) Mixed hyperlipidemia MYALGIA AND MYOSITIS NOS 07/15/2005 Obesity TOBACCO USE DISORDER 07/15/2005 Type 2 diabetes (HCC) PAST SURGICAL HISTORY Procedure Laterality Date FOOT SURGERY HX 2003 fx foot FAMILY HISTORY Problem Relation Age of Onset Coronary Artery Disease Mother Diabetes Mother Coronary Artery Disease Father Stroke Father Uterine Cancer No Family History Breast Cancer No Family History Prostate Cancer No Family History Colon Cancer No Family History Social History Tobacco Use Smoking status: Former Smoker Packs/day: 0.50 Years: 20.00 Pack years: 10.00 Types: Cigarettes Smokeless tobacco: Never Used Substance Use Topics Alcohol use: No Drug use: No Prior to Admission medications as of 08/21/21 1339 Medication Sig Last Dose Taking mag hydrox/aluminum hyd/simeth (ANTACID SUSPENSION ORAL) Take 30 mL by mouth. Every 4 hrs as needed Yes guaiFENesin (ROBITUSSIN) 100 mg/5 mL syrup Take 200 mg by mouth every 4 hours as needed. Yes Miconazole powd twice daily. Yes acetaminophen (TYLENOL) 325 mg tablet Take 650 mg by mouth every 4 hours as needed. Yes atorvastatin (LIPITOR) 40 mg tablet Take 40 mg by mouth daily at bedtime. Yes dextrose (GLUCOSE GEL ORAL) Take by mouth. Yes insulin lispro (HUMALOG) 100 unit/mL injection Inject subcutaneously three times daily before meals. Yes insulin glargine (LANTUS SOLOSTAR U-100 INSULIN) 100 unit/mL (3 mL) Inject 65 Units subcutaneously daily at bedtime. Yes lisinopril (ZESTRIL, PRINIVIL) 5 mg tablet Take 5 mg by mouth once daily. Yes triamcinolone-niacinamide 0.1-4 % cream Apply to affected area. Yes dulaglutide (TRULICITY) 1.5 mg/0.5 mL pen injector Inject 1.5 mg subcutaneously one time a week. Yes cholecalciferol, Vitamin D3, (VITAMIN D3) 50,000 unit cap capsule Take 1 capsule by mouth once each week. Yes QUEtiapine XR (SEROQUEL XR) 300 mg 24 hr tablet Take 2 tablets by mouth daily at bedtime. Yes clonazePAM (KLONOPIN) 0.5 mg tablet Take 1 tablet by mouth three times daily as needed. Yes lamoTRIgine (LAMICTAL) 100 mg tablet Take 1 tablet by mouth once daily. Yes No medication comments found. ALLERGIES Allergen Reactions Ciprofloxacin Shortness of Breath, Anaphylaxis Fish Containing Pro* Hives Red Dye Hives Iodinated Contrast * Rash Metformin Diarrhea, GI Upset, Vomiting Penicillins Rash Shellfish Derived Diarrhea, Vomiting Sulfa (Sulfonamide * Rash Paliperidone Rash no lidocaine allergy Objective PHYSICAL EXAM: General: alert and oriented and healthy appearance. Pertinent negatives noted - not distressed. Skin: normal color, no rash or lesions. HEENT: Cardiovascular: regular rate and rhythm, normal S1 and S2, no rub, murmurs, or gallop. Respiratory: normal breath sounds, no wheezes or crackles. No chest wall deformity or tenderness. Abdomen: soft. Extremities: no deformity, no edema or tenderness, no joint swelling or clubbing. Neurological: normal cognition and motor skills. Gait normal. No weakness or sensory deficit. no current infections including dental PAIN ASSESSMENT: VITALS: BP 127/71 Pulse 97 Temp 97.5 Resp 18 Ht 5' 5 (1.65m) Wt 284 lb (128.8kg) SpO2 97% BMI 47.26 kg/(m^2). no oxygen used Diagnostic tests reviewed for today's visit: Lab Value Units Date High Low HB No results within date range. HCT No results within date range. WBC No results within date range. PLT No results within date range. NA No results within date range. K No results within date range. GLUC No results within date range. BUN No results within date range. CREAT No results within date range. PTSEC No results within date range. INR No results within date range. APTT No results within date range. ALT No results within date range. AST No results within date range. TBILI No results within date range. TSH No results within date range. Lab Value Units Date High Low HCGQT No results within date range. UHCG No results within date range. HCG, BODY* No results within date range. Lab Value Units Date High Low ABORHD No results within date range. ABSCREEN No results within date range. No results found for: HBA1C No results found for this or any previous visit (from the past 8760 hour(s)). No results found for this or any previous visit (from the past 45188 hour(s)). Assessment No problem-specific Assessment & Plan notes found for this encounter. METS: Climb a flight of stairs or walk up a hill (5.50 METs) DASI Score: 5.5; Patient denies any chest pain or undue shortness of breath with the above physical activity. ANESTHESIA FINDINGS: Intubation History: No history of difficult intubation. No abnormal airway history Significant Anesthesia Considerations: none Airway History: No history of difficult airway No abnormal airway history I - PHYSICAL EVALUATION DENTAL Dental findings: missing tooth/teeth. Dentures, upper: complete. Dentures, lower: complete. II - ANESTHESIA PLAN Anesthetic Plan: general Prepared for Surgery: CONSULTS: Patient does not require consults for optimization at this time The Following Tests/Procedures Have Been Initiated: No orders of the defined types were placed in this encounter. Planned Anesthetic: general Implantable Devices: hardware left foot Patient has the following medical conditions which may affect poornima-operative course Diabetes - last aic 7.0 insulin and weekly injectables HTN - slightly elevated. Treated with oral medications. 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 patient does not have documented aortic stenosis Last EKG 12/13/2015 NSR Anticoagulation therapy does not take asa or blood thinners Assessment/Plan Endometrial cancer PLAN Planned Procedure: Procedure(s): EXAM UNDER ANESTHESIA PELVIC / VAGINAL (N/A) LAPAROSCOPIC HYSTERECTOMY TOTAL FOR UTERUS 250 G OR LESS W/REMOVAL TUBE(S) AND/OR OVARY(S) (N/A) LAPAROSCOPY SURGICAL W/RETROPERITONEAL LYMPH NODE SAMPLING SINGLE OR MULTIPLE (N/A) LAPAROTOMY PELVIC (N/A) The Following Tests/Procedures Have Been Initiated: Ordered by surgeon- none Ordered by electrical accessories ii assembler - cbc, T*S, con abo Instructions Given to Patient: Instructions located in the after visit summary. Patient given verbal and written preop instructions and voices comprehension and compliance. SIGNATURE: Naila Barrientos APRN.CNP PATIENT NAME: Rick Miller DATE: September 01, 2021 TIME: 2:53 PM PAGER/CONTACT #: documented in this encounter [facility] 08-21-2021 Note HNO ID: [id number] Author: Dustin Dooley MD Service: ? Author Type: Physician Type: Progress Notes Filed: 08/26/2021 1:21 PM Note Text: Gynecologic Oncology [facility] [place] [facility] Consult Date of service: 08/21/2021 PCP: Dr. Shayna Malhotra Psychiatrist: Dr. Brie Geller PROBLEM/CC: Rick Miller presents for a consult for endometrial cancer referred by Danni Erazo MD HPI: Rick Miller is a 70 year old female who recently had had a biopsy done with the result being grade 2 endometrioid endometrial cancer. Reports that she has been having post-menopausal bleeding for >1 month. She has pelvic pain with this as well, and the pain started after the bleeding. At worst, she was passing clots and having to change a pad q 2-4 hours. She was seen in the ER in July for this and she was HD stable at this time, and pelvic ultrasound showed endometrial thickening and a cervical mass. She was seen by Dr. Erazo (gynecology) and had EMB with cervical biopsies performed which demonstrated FIGO grade 2 endometrial adenocarcinoma. She was then referred to medical oncology who ordered CT scans and CA 125. ? 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 Reports normal pap smears in the past. Denies h/o HPV. [facility]. Not currently sexually active. She says she was told her had endometrial hyperplasia before in the past and this was treated with oral progesterone. She says the hyperplasia was successfully treated, and she believes this was when she was in her 20-30's. ? OB History T0 L2 SAB0 IAB0 Ectopic0 Multiple0 Live Births0 ? Data Integrity Specialist History ? 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 Age at Menarche: ? Age at First : ? Age at Menopause: ? Data Integrity Specialist History Comments: ? Sexual Activity: Not Asked; No partner data on record ? Contraception: No contraception data on record ? ? PAST MEDICAL HISTORY Diagnosis Date - Bipolar disorder with depression (HCC) - History of seizures - Hypertension - Mixed hyperlipidemia - MYALGIA AND MYOSITIS NOS 07/15/2005 - Obesity - TOBACCO USE DISORDER 07/15/2005 - Type 2 diabetes (HCC) PAST SURGICAL HISTORY Procedure Laterality Date - FOOT SURGERY HX 2004 fx foot FAMILY HISTORY Problem Relation Age of Onset - Coronary Artery Disease Mother - Diabetes Mother - Coronary Artery Disease Father - Stroke Father - Uterine Cancer No Family History - Breast Cancer No Family History - Prostate Cancer No Family History - Colon Cancer No Family History Social History Tobacco Use - Smoking status: Former Smoker Packs/day: 0.50 Years: 20.00 Pack years: 10.00 Types: Cigarettes - Smokeless tobacco: Never Used Substance Use Topics - Alcohol use: No - Drug use: No ? Allergies As of Date: 07/29/2021 Allergen Noted Reaction CIPRO [CIPROFLOXACIN] 08/11/2005 Shortness of Breath FISH CONTAINING PRODUCTS 02/10/2016 Hives PENICILLINS 07/15/2005 RED DYE 02/10/2016 Hives SULFA (SULFONAMIDE ANTIBIOTICS) 07/15/2005 HEALTH MAINTENANCE: Last pap: severeal years ago - no h/o abnormal Last mammogram: several years ago - no h/o abnormal Last colonoscopy: denies ALLERGIES Allergen Reactions - Cipro [Ciprofloxaci* Shortness of Breath - Fish Containing Pro* Hives - Penicillins - Red Dye Hives - Sulfa (Sulfonamide * guaiFENesin (ROBITUSSIN) 100 mg/5 mL syrup Take 200 mg by mouth every 4 hours as needed. Miconazole powd twice daily. acetaminophen (TYLENOL) 325 mg tablet Take 650 mg by mouth every 4 hours as needed. atorvastatin (LIPITOR) 40 mg tablet Take 40 mg by mouth once daily. Lactobacillus acidophilus (PROBIOTIC ORAL) Take by mouth. dextrose (GLUCOSE GEL ORAL) Take by mouth. insulin lispro (HUMALOG) 100 unit/mL injection Inject subcutaneously three times daily before meals. insulin glargine (LANTUS SOLOSTAR U-100 INSULIN) 100 unit/mL (3 mL) Inject 10 Units subcutaneously. lisinopril (ZESTRIL, PRINIVIL) 5 mg tablet Take 5 mg by mouth once daily. triamcinolone-niacinamide 0.1-4 % cream Apply to affected area. dulaglutide (TRULICITY) 1.5 mg/0.5 mL pen injector Inject 1.5 mg subcutaneously one time a week. cholecalciferol, Vitamin D3, (VITAMIN D3) 50,000 unit cap capsule Take 1 capsule by mouth once each week. QUEtiapine XR (SEROQUEL XR) 300 mg 24 hr tablet Take 2 tablets by mouth daily at bedtime. ergocalciferol, vitamin D2, (VITAMIN D) 50,000 unit capsule Take 1 capsule by mouth once each week. clonazePAM (KLONOPIN) 0.5 mg tablet Take 1 tablet by mouth three times daily as needed. lamoTRIgine (LAMICTAL) 100 mg tablet Take 1 tablet by mouth once daily. furosemide (LASIX) 20 mg tablet Take 1 tablet by mouth twice daily. furosemide (LASIX) 20 mg tablet Take 0.5 tablets by mouth once daily. cholecalciferol, Vitamin D3, (VITAMIN D3) 50,000 unit cap capsule Take 1 capsule by mouth (more content not included)... [facility] 07-29-2021 Note HNO ID: [id number] Author: Danni Erazo MD Service: ? Author Type: Physician Type: Progress Notes Filed: 07/30/2021 10:15 AM Note Text: Rick Miller is a 70 year old female who presents for problem visit - PMB. HPI: Here as a new patient for PMB and ER follow up. About 4 days ago she started having PMB. She has pelvic pain with this as well, and the pain started after the bleeding. Passing clots currently and having to change a pad q 2-4 hours. She was seen in the ER a few days ago for this and she was HD stable at this time, and pelvic ultrasound showed endometrial thickening and a cervical mass. She presents today for follow up regarding this. She has no complaints today other than the bleeding and pelvic cramping/pain. 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 Reports normal pap smears in the past. Denies h/o HPV. [facility]. Not currently sexually active. She says she was told her had endometrial hyperplasia before in the past and this was treated with oral progesterone. She says the hyperplasia was successfully treated, and she believes this was when she was in her 20-30's. OB History T0 L2 SAB0 IAB0 Ectopic0 Multiple0 Live Births0 Data Integrity Specialist History LMP: Postmenopausal Age at Menarche: Age at First : Age at Menopause: Data Integrity Specialist History Comments: Sexual Activity: Not Asked; No partner data on record Contraception: No contraception data on record PAST MEDICAL HISTORY Diagnosis Date - Bipolar disorder with depression (HCC) - History of seizures - Hypertension - MYALGIA AND MYOSITIS NOS 07/15/2005 - TOBACCO USE DISORDER 07/15/2005 - Type 2 diabetes (HCC) PAST SURGICAL HISTORY Procedure Laterality Date - FOOT SURGERY HX 2004 fx foot FAMILY HISTORY Problem Relation Age of Onset - Coronary Artery Disease Mother - Coronary Artery Disease Father - Diabetes Mother - Stroke Father Social History Tobacco Use - Smoking status: Former Smoker Packs/day: 0.50 Years: 20.00 Pack years: 10.00 Types: Cigarettes - Smokeless tobacco: Never Used Substance Use Topics - Alcohol use: No - Drug use: No Current Outpatient Medications Medication Sig - atorvastatin (LIPITOR) 40 mg tablet Take 40 mg by mouth once daily. - Lactobacillus acidophilus (PROBIOTIC ORAL) Take by mouth. - dextrose (GLUCOSE GEL ORAL) Take by mouth. - insulin lispro (HUMALOG) 100 unit/mL injection Inject subcutaneously three times daily before meals. - insulin glargine (LANTUS SOLOSTAR U-100 INSULIN) 100 unit/mL (3 mL) Inject 10 Units subcutaneously. - lisinopril (ZESTRIL, PRINIVIL) 5 mg tablet Take 5 mg by mouth once daily. - triamcinolone-niacinamide 0.1-4 % cream Apply to affected area. - dulaglutide (TRULICITY) 1.5 mg/0.5 mL pen injector Inject 1.5 mg subcutaneously one time a week. - cholecalciferol, Vitamin D3, (VITAMIN D3) 50,000 unit cap capsule Take 1 capsule by mouth once each week. - QUEtiapine XR (SEROQUEL XR) 300 mg 24 hr tablet Take 2 tablets by mouth daily at bedtime. - ergocalciferol, vitamin D2, (VITAMIN D) 50,000 unit capsule Take 1 capsule by mouth once each week. - clonazePAM (KLONOPIN) 0.5 mg tablet Take 1 tablet by mouth three times daily as needed. - lamoTRIgine (LAMICTAL) 100 mg tablet Take 1 tablet by mouth once daily. - furosemide (LASIX) 20 mg tablet Take 1 tablet by mouth twice daily. (Patient not taking: Reported on 07/29/2021 ) - furosemide (LASIX) 20 mg tablet Take 0.5 tablets by mouth once daily. (Patient not taking: Reported on 07/29/2021 ) - cholecalciferol, Vitamin D3, (VITAMIN D3) 50,000 unit cap capsule Take 1 capsule by mouth once each week. (ONE CAPSULE) FOR VITAMIN D DEFICIENCY - cholecalciferol, Vitamin D3, (VITAMIN D3) 50,000 unit cap capsule Take 1 capsule by mouth twice a week. (ONE CAPSULE) FOR VITAMIN D DEFICIENCY No current facility-administered medications for this visit. Allergies As of Date: 07/29/2021 Allergen Noted Reaction CIPRO [CIPROFLOXACIN] 08/11/2005 Shortness of Breath FISH CONTAINING PRODUCTS 02/10/2016 Hives PENICILLINS 07/15/2005 RED DYE 02/10/2016 Hives SULFA (SULFONAMIDE ANTIBIOTICS) 07/15/2005 Fully Assessed 07/29/2021 REVIEW OF SYSTEMS Abdomen: No abdominal pain, nausea, vomiting, diarrhea, or constipation. Bladder: No dysuria. Expanded ROS: See HPI. Allergies and current medication updated:Yes EXAM: BP 120/80 Wt 292 lb 6.4 oz (132.6kg) GENERAL: pleasant, female in no apparent distress HEENT: Normocephalic, atraumatic, mucus membranes moist and no lesions NECK: full range of motion CHEST: Normal inspiratory effort ABDOMEN: soft, non-tender and no masses PELVIC: external genitalia atrophic, normal Bartholin's glands, urethra, Darfur's glands, no vulvar lesions, no cervical lesions, good vaginal support, normal appearing perineal body and perianal region, scant (more content not included)... [facility] Diagnosis Endometrial cancer (HCC)- Primary Malignant neoplasm of corpus uteri, except isthmus documented in this encounter [facility] Summary Purpose Family History No Family History Records FoundNo Family History Records Found Advance Directives No Advanced Directives Records FoundDocuments on File Type Date Recorded Patient Nurse Tech Expl anation Advance Directive(s) 09/07/2021 6:14 AM Health Concerns Infection Onset Date Last Indicated Resolved Time COVID-19 Rule-Out 09/07/2021 09/07/2021 Additional Source Comments INFORMATION SOURCE (unrecogn ized section and content) DATE CREATED AUTHOR AUTHOR'S ORGANIZ ATION 12/01/2021 [facility] Source Comments (unrecognize d section and content) In the event this informatio n is protected by the Federal Confidentiality of Alcohol and Drug Abuse Patient Records regulations: The Federal rules restrict any use of the information to criminally investigate or prosecute any alcohol or drug abuse patient.[facility] the event this information is protected by the Federal Confidentiality of Alcohol and Drug Abuse Patient Records regulations: The Federal rules restrict any use of the information to criminally investigate or prosecute any alcohol or drug abuse patient.[facility] the event this information is protected by the Federal Confidentiality of Alcohol and Drug Abuse Patient Records regulations: The Federal rules restrict any use of the information to criminally investigate or prosecute any alcohol or drug abuse patient.[facility] the event this information is protected by the Federal Confidentiality of Alcohol and Drug Abuse Patient Records regulations: The Federal rules restrict any use of the information to criminally investigate or prosecute any alcohol or drug abuse patient.[facility] the event this information is protected by the Federal Confidentiality of Alcohol and Drug Abuse Patient Records regulations: The Federal rules restrict any use of the information to criminally investigate or prosecute any alcohol or drug abuse patient.[facility] Reason for Visit (unrecogniz ed section and content) Reason Comments Patient Update Reason Comments Results Reason Comments Appointment Cancelled FOR RECORDS PERTAINING TO PATIENTS WHO ARE OR HAVE BEEN ENROLLED IN A CHEMICAL DEPENDENCY/SUBSTANCEABUSE PROGRAM, SOME INFORMATION MAY BE OMITTED. This clinical summary was aggregated from multiple sources. Caution should be exercised in using it in the provision of clinical care. This summary normalizes information from multiple sources, and as a consequence, information in this document may materially change the coding, format and clinical context of patient data. In addition, data may be omitted in some cases. CLINICAL DECISIONS SHOULD BE BASED ON THE PRIMARY CLINICAL RECORDS. [facility]. provides no warranty or guarantee of the accuracy or completeness of information in this document.
[2023-07-08 08:35] LABS: Absolute Lymphocyte Count 0.97 X10^3/uL (0.83-4.51); Basophil# 0.03 X10^3/uL; Basophil% 0.7 % (0-1); Eosinophil# 0.11 X10^3/uL; Eosinophils% 2.4 % (0-5); Hematocrit 39.9 % (37-47); Hemoglobin 12.6 g/dL (12.0-15.0); Lymphocyte # 0.97 X10^3/ul (0.83-4.51); Lymphocyte % 21.6 % (19-41); Mean Corp Hgb Conc 31.6 g/dL (32-36); Mean Corpuscular Hgb 28.5 pg (27.0-32.0); Mean Corpuscular Volume 90.3 fL (81-99); Mean Platelet Vol. 11.5 fl (6.2-12.0); Monocyte# 0.39 X10^3/uL; Monocyte% 8.7 % (0-10); NRBC Flagged by Analyzer 0 % (0-5); Neutrophil # 2.99 X10^3/uL (2.7-7.7); Neutrophil % 66.4 % (47-70); Platelet Count 130 K/mm3 (150-450); RBC Distribution Width CV 15.5 % (11.6-14.6); RBC Distribution Width SD 51.9 fl (35.1-43.9); Red Blood Count 4.42 M/mm3 (4.2-5.4); White Blood Count 4.5 K/mm3 (4.4-11.0)
[2023-07-08 08:48] LABS: ALB/GLOB Ratio 0.7 RATIO (0.9-2.4); AST(SGOT) 38 U/L (15-37); Alanine Aminotransfer ALT/SGPT 34 U/L (13-56); Albumin, Serum 3.3 g/dL (3.2-5.0); Alkaline Phosphatase 126 U/L (45-117); Anion Gap 4 (5-15); BUN 15 mg/dL (7-18); BUN/Creat Ratio 17.2 RATIO (10-20); Calcium,Total 9.3 mg/dL (8.5-10.1); Chloride 109 mmol/L (98-107); Creatinine, Serum 0.87 mg/dL (0.55-1.02); EST Glomerular Filtration Rate 68 mL/min (>60); Est Glom Filt Rate - Afr Amer 83 mL/min (>60); Globulin 4.7 g/dL (2.2-4.2); Glucose 204 mg/dL (74-106); Potassium 4.4 mmol/L (3.5-5.1); Sodium Level 137 mmol/L (136-145)
[2023-07-08 09:03] LABS: Vitamin D,25 Hydroxy 36.2 ng/mL
[2023-07-08 09:38] LABS: Hemoglobin A1c 7.5 % (3.8-5.6)
== END ==
LOC: OLS.SWAL 05:00
PROVIDERS: PCP Internal Medicine
DX: E11.9 Type 2 diabetes mellitus without complications (principal); E55.9 Vitamin D deficiency, unspecified; E78.5 Hyperlipidemia, unspecified
CPT/HCPCS: 36415; 80053; 82306; 83036; 85025

== ENCOUNTER → 2023-10-07 | Outpatient (REF) | payer MEDICARE, MEDICAID, SELFPAY ==
[2023-10-07 07:41] LABS: Absolute Lymphocyte Count 0.97 X10^3/uL (0.83-4.51); Absolute Neutrophil Count 3.4 X10^3/uL (2.0-7.7); Basophil# 0.02 X10^3/uL; Basophil% 0.4 % (0-1); Eosinophil# 0.14 X10^3/uL; Eosinophils% 2.8 % (0-5); Hemoglobin 12.8 g/dL (12.0-15.0); Lymphocyte # 0.97 X10^3/ul (0.83-4.51); Lymphocyte % 19.2 % (19-41); Mean Corpuscular Hgb 28.6 pg (27.0-32.0); Mean Corpuscular Volume 89.5 fL (81-99); Mean Platelet Vol. 11.6 fl (6.2-12.0); Monocyte# 0.47 X10^3/uL; Monocyte% 9.3 % (0-10); NRBC Flagged by Analyzer 0 % (0-5); Neutrophil # 3.44 X10^3/uL (2.7-7.7); Neutrophil % 67.9 % (47-70); Platelet Count 121 K/mm3 (150-450); RBC Distribution Width CV 15.6 % (11.6-14.6); Red Blood Count 4.47 M/mm3 (4.2-5.4); White Blood Count 5.1 K/mm3 (4.4-11.0)
[2023-10-07 08:55] LABS: ALB/GLOB Ratio 0.6 RATIO (0.9-2.4); AST(SGOT) 54 U/L (15-37); Alanine Aminotransfer ALT/SGPT 40 U/L (13-56); Alkaline Phosphatase 160 U/L (45-117); Anion Gap 7 (5-15); BUN 14 mg/dL (7-18); BUN/Creat Ratio 15.3 RATIO (10-20); Calcium,Total 9.2 mg/dL (8.5-10.1); Chloride 104 mmol/L (98-107); Creatinine, Serum 0.92 mg/dL (0.55-1.02); EST Glomerular Filtration Rate 64 mL/min (>60); Est Glom Filt Rate - Afr Amer 78 mL/min (>60); Globulin 4.7 g/dL (2.2-4.2); Glucose 209 mg/dL (74-106); Potassium 4.5 mmol/L (3.5-5.1); Protein, Total 7.7 g/dL (6.4-8.2); Sodium Level 135 mmol/L (136-145)
[2023-10-07 11:03] LABS: Hemoglobin A1c 7.7 % (3.8-5.6)
== END ==
LOC: OLS.SWAL 05:00
PROVIDERS: PCP Internal Medicine
DX: E11.9 Type 2 diabetes mellitus without complications (principal); E78.5 Hyperlipidemia, unspecified; E55.9 Vitamin D deficiency, unspecified
CPT/HCPCS: 36415; 80053; 82306; 83036; 85025

== ENCOUNTER → 2024-01-09 05:00 | Outpatient (REF) | payer MEDICARE, MEDICAID, SELFPAY ==
[2024-01-09 08:54] LABS: Absolute Lymphocyte Count 1.07 X10^3/uL (0.83-4.51); Absolute Neutrophil Count 2.9 X10^3/uL (2.0-7.7); Basophil# 0.03 X10^3/uL; Basophil% 0.7 % (0-1); Eosinophil# 0.18 X10^3/uL; Eosinophils% 3.9 % (0-5); Hematocrit 40.9 % (37-47); Hemoglobin 13.1 g/dL (12.0-15.0); Lymphocyte # 1.07 X10^3/ul (0.83-4.51); Lymphocyte % 23.3 % (19-41); Mean Corpuscular Volume 90.7 fL (81-99); Mean Platelet Vol. 11.7 fl (6.2-12.0); Monocyte# 0.42 X10^3/uL; Monocyte% 9.2 % (0-10); NRBC Flagged by Analyzer 0 % (0-5); Neutrophil # 2.87 X10^3/uL (2.7-7.7); Neutrophil % 62.5 % (47-70); Platelet Count 110 K/mm3 (150-450); RBC Distribution Width CV 15.2 % (11.6-14.6); RBC Distribution Width SD 50.8 fl (35.1-43.9); Red Blood Count 4.51 M/mm3 (4.2-5.4); White Blood Count 4.6 K/mm3 (4.4-11.0)
[2024-01-09 09:07] LABS: ALB/GLOB Ratio 0.6 RATIO (0.9-2.4); AST(SGOT) 40 U/L (15-37); Alanine Aminotransfer ALT/SGPT 37 U/L (13-56); Albumin, Serum 2.9 g/dL (3.2-5.0); Alkaline Phosphatase 148 U/L (45-117); Anion Gap 6 (5-15); BUN 20 mg/dL (7-18); BUN/Creat Ratio 20.9 RATIO (10-20); Chloride 108 mmol/L (98-107); Creatinine, Serum 0.96 mg/dL (0.55-1.02); EST Glomerular Filtration Rate 61 mL/min (>60); Est Glom Filt Rate - Afr Amer 74 mL/min (>60); Glucose 219 mg/dL (74-106); Potassium 4.9 mmol/L (3.5-5.1); Protein, Total 7.9 g/dL (6.4-8.2); Sodium Level 139 mmol/L (136-145)
[2024-01-09 09:09] LABS: Vitamin D,25 Hydroxy 52.9 ng/mL
[2024-01-09 11:22] LABS: Hemoglobin A1c 7.9 % (3.8-5.6)
== END ==
LOC: OLS.SWAL 05:00
PROVIDERS: PCP Internal Medicine
DX: E11.9 Type 2 diabetes mellitus without complications; E78.5 Hyperlipidemia, unspecified; E55.9 Vitamin D deficiency, unspecified
CPT/HCPCS: 36415; 80053; 82306; 83036; 85025

== ENCOUNTER → 2024-04-09 | Outpatient (REF) | payer MEDICARE, MEDICAID, SELFPAY ==
[2024-04-09 09:42] LABS: Absolute Lymphocyte Count 0.98 X10^3/uL (0.83-4.51); Absolute Neutrophil Count 2.6 X10^3/uL (2.0-7.7); Basophil# 0.03 X10^3/uL; Basophil% 0.7 % (0-1); Eosinophil# 0.17 X10^3/uL; Eosinophils% 4.1 % (0-5); Hematocrit 39.8 % (37-47); Hemoglobin 12.5 g/dL (12.0-15.0); Lymphocyte # 0.98 X10^3/ul (0.83-4.51); Lymphocyte % 23.9 % (19-41); Mean Corp Hgb Conc 31.4 g/dL (32-36); Mean Corpuscular Hgb 28.4 pg (27.0-32.0); Mean Corpuscular Volume 90.5 fL (81-99); Mean Platelet Vol. 11.4 fl (6.2-12.0); Monocyte# 0.35 X10^3/uL; Monocyte% 8.5 % (0-10); NRBC Flagged by Analyzer 0 % (0-5); Neutrophil # 2.56 X10^3/uL (2.7-7.7); Neutrophil % 62.6 % (47-70); Platelet Count 107 K/mm3 (150-450); RBC Distribution Width CV 15.2 % (11.6-14.6); RBC Distribution Width SD 50.8 fl (35.1-43.9); White Blood Count 4.1 K/mm3 (4.4-11.0)
[2024-04-09 10:00] LABS: ALB/GLOB Ratio 0.7 RATIO (0.9-2.4); AST(SGOT) 36 U/L (15-37); Alanine Aminotransfer ALT/SGPT 32 U/L (13-56); Albumin, Serum 3.1 g/dL (3.2-5.0); Alkaline Phosphatase 146 U/L (45-117); Anion Gap 5 (5-15); BUN 16 mg/dL (7-18); BUN/Creat Ratio 19.4 RATIO (10-20); Calcium,Total 9.1 mg/dL (8.5-10.1); Chloride 109 mmol/L (98-107); Creatinine, Serum 0.82 mg/dL (0.55-1.02); EST Glomerular Filtration Rate 73 mL/min (>60); Est Glom Filt Rate - Afr Amer 88 mL/min (>60); Globulin 4.7 g/dL (2.2-4.2); Glucose 209 mg/dL (74-106); Potassium 4.3 mmol/L (3.5-5.1); Protein, Total 7.8 g/dL (6.4-8.2); Sodium Level 139 mmol/L (136-145)
[2024-04-09 11:51] LABS: Hemoglobin A1c 7.9 % (3.8-5.6)
== END ==
LOC: OLS.SWAL 04:00
PROVIDERS: PCP Internal Medicine
DX: E11.9 Type 2 diabetes mellitus without complications (principal); E55.9 Vitamin D deficiency, unspecified; E78.5 Hyperlipidemia, unspecified
CPT/HCPCS: 36415; 80053; 82306; 83036; 85025

== ENCOUNTER → 2024-07-09 04:00 | Outpatient (REF) | payer MEDICARE, MEDICAID, SELFPAY ==
[2024-07-09 10:09] LABS: Absolute Lymphocyte Count 0.82 X10^3/uL (0.83-4.51); Absolute Neutrophil Count 2.6 X10^3/uL (2.0-7.7); Basophil# 0.04 X10^3/uL; Eosinophil# 0.24 X10^3/uL; Eosinophils% 5.9 % (0-5); Hematocrit 38.2 % (37-47); Hemoglobin 12.4 g/dL (12.0-15.0); Lymphocyte # 0.82 X10^3/ul (0.83-4.51); Lymphocyte % 20.2 % (19-41); Mean Corp Hgb Conc 32.5 g/dL (32-36); Mean Corpuscular Volume 89.5 fL (81-99); Monocyte# 0.39 X10^3/uL; Monocyte% 9.6 % (0-10); NRBC Flagged by Analyzer 0 % (0-5); Neutrophil # 2.55 X10^3/uL (2.7-7.7); Neutrophil % 63.1 % (47-70); Platelet Count 116 K/mm3 (150-450); RBC Distribution Width CV 15.9 % (11.6-14.6); RBC Distribution Width SD 52.1 fl (35.1-43.9); Red Blood Count 4.27 M/mm3 (4.2-5.4); White Blood Count 4.1 K/mm3 (4.4-11.0)
[2024-07-09 10:23] LABS: Vitamin D,25 Hydroxy 44.8 ng/mL
[2024-07-09 11:09] LABS: ALB/GLOB Ratio 0.6 RATIO (0.9-2.4); AST(SGOT) 35 U/L (15-37); Alanine Aminotransfer ALT/SGPT 27 U/L (13-56); Albumin, Serum 3.1 g/dL (3.2-5.0); Alkaline Phosphatase 126 U/L (45-117); Anion Gap 5 (5-15); BUN 17 mg/dL (7-18); BUN/Creat Ratio 22.2 RATIO (10-20); Calcium,Total 9.3 mg/dL (8.5-10.1); Chloride 107 mmol/L (98-107); Creatinine, Serum 0.76 mg/dL (0.55-1.02); EST Glomerular Filtration Rate 79 mL/min (>60); Est Glom Filt Rate - Afr Amer 96 mL/min (>60); Globulin 4.9 g/dL (2.2-4.2); Glucose 168 mg/dL (74-106); Potassium 4.2 mmol/L (3.5-5.1); Sodium Level 137 mmol/L (136-145)
[2024-07-09 13:48] LABS: Hemoglobin A1c 6.6 % (3.8-5.6)
== END ==
LOC: OLS.SWAL 04:00
PROVIDERS: PCP Internal Medicine
DX: E78.5 Hyperlipidemia, unspecified (principal); E55.9 Vitamin D deficiency, unspecified; E11.9 Type 2 diabetes mellitus without complications
CPT/HCPCS: 36415; 80053; 82306; 83036; 85025

== ENCOUNTER 2024-10-09 16:54 | Inpatient (IN) | payer MEDICARE, MEDICAID, SELFPAY ==
[2024-10-09 16:55] VITALS: BP 148/69; PULSE 114; RESP 18; TEMP 36.6; O2SAT 99; BMI 49.1
--- NOTE | 2024-10-09 17:14 | EDS_ITS ---
HPI History of Present Illness Chief Complaint: Lower Extremity Injury Narrative Narrative: 73-year-old female states that she had pins placed in her left foot approximately 15 years ago [place] after breaking her heel. She is currently in [facility]. She states for the last 2 weeks she has been having increasing foot pain. She states that on Tuesday, probably of the last week, she had x-rays obtained at the [facility]. She went and saw Dr. Shayna Malhotra on Tuesday, but he did not have the x-ray results. She states that she is having a lot of pain in her left heel that is worse with weightbearing and walking and palpation. She states that it feels as if she is having a baby out of her left heel. [facility] Medical History Obesity Anxiety Cancer Anxiety Diabetes Former smoker Hypertension DVT (deep venous thrombosis) Bipolar 1 disorder Hyperlipidemia Vitamin D deficiency History of seizures history of broken heel left foot History of recurrent UTIs Home Medications ?Medication ?Instructions ?Recorded ?Last Taken ?Type lactobacillus combination no.9 4 4,000 mmu cells PO DA SHIRA 06/25/20 Unknown History billion cell capsule (Adult 50 Plus Probiotic) acetaminophen 325 mg tablet 650 mg PO Q4H PRN PRN Pain , fever 07/30/21 Unknown History (Tylenol) guaifenesin 100 mg/5 mL oral liquid 200 mg PO Q4H PRN cough 07/30/21 Unknown History ergocalciferol (vitamin D2) 1,250 50,000 unit PO Q14D suuplement 09/20/21 Unknown History mcg (50,000 unit) capsule triamcinolone acetonide 0.1 % 1 applic topical Q12H MD N PRN Rash 09/20/21 Unknown History topical cream insulin lispro 100 unit/mL See Protocol subcut TIDAC d iabetes 11/22/21 Unknown History subcutaneous pen (Humalog KwikPen (U-100) Insulin) lamotrigine 100 mg tablet 100 mg PO DAILY seizures Unknown History lisinopril 5 mg tablet 5 mg PO QDAY BP 11/22/21 Unk nown History miconazole nitrate 2 % topical 1 applic topical BID Ch ana m with 11/22/21 Unknown History powder primary doctor blood sugar diagnostic (FreeStyle 11/23/21 Unknown Hi story Lite Strips) blood-glucose meter (FreeStyle 11/23/21 Unknown Histo ry Lite Meter kit) lancets 28 gauge (FreeStyle 11/23/21 Unknown History Lancets) nystatin 100,000 unit/gram topical 1 applic topical TI D #0 grams 11/24/21 Unknown Rx powder (Nyamyc) quetiapine 100 mg tablet 300 mg (3 x 100 mg) PO BID # 0 tabs 11/24/21 Unknown Rx aspirin 81 mg chewable tablet 81 mg PO DAILY 05/06/22 Unknown History empagliflozin 10 mg tablet 10 mg PO DAILY 08/17/22 Unk nown History (Jardiance) atorvastatin 40 mg tablet 40 mg PO QPM 11/24/22 Unknow n History dulaglutide 3 mg/0.5 mL 3 mg subcut QWEEK 11/24/22 U nknown History subcutaneous pen injector (Trulicity) clonazepam 0.5 mg tablet 0.5 mg PO Q12H panic attack( s) 10/09/24 Unknown History insulin glargine 100 unit/mL (3 40 unit subcut BID 11/28 Unknown History mL) subcutaneous pen (Lantus Solostar U-100 Insulin) Allergy/AdvReac Type Severity Reaction Status Date / Time ciprofloxacin (From Cipro) Allergy Mild Anaphylaxis Verified 10/09/24 16:55 ciprofloxacin HCl (From Allergy Anaphylaxis Verified 10/09/24 16:55 Cipro) Iodinated Contrast Media Allergy Rash Verified 10/09/24 16:55 (Iodinated Contrast Media - IV Dye) paliperidone (From Invega) Allergy Rash Verified 10/09/24 16:55 Penicillins Allergy RASH AND Verified 10/09/24 16:55 ITCHING red (food color) Allergy Hives Verified 10/09/24 16:55 red dye Allergy Hives Verified 10/09/24 16:55 Sulfa (Sulfonamide Allergy RASH AND Verified 10/09/24 16:55 Antibiotics) ITCHING metformin AdvReac Nausea/Vom/ Verified 10/09/24 16:55 Diarrhea shellfish derived AdvReac Nausea/Vom/ Verified 10/09/24 16:55 Diarrhea Family History Mother Diabetes Hypertension Heart disease Thyroid disorder Father CVA (cerebral vascular accident) Diabetes Brother Parkinson disease Thyroid disorder Lupus Alcoholism Blood clots in brain Grandfather Heart disease Asthma Social History Smoking Status: Former smoker Tobacco: How many years used: 45 how long ago did patient quit smokin11/2016 substance use type: does not use what type of physical activity do you participate in: none ROS ROS ED ROS Narrative Review of systems positive for left heel pain. Worse with weightbearing, mild walking, and palpation. Denies other symptoms. EXAM Physical Exam Narrative Exam Narrative: Physical exam: Cardiovascular examination reveals mild tachycardia. Lungs clear to auscultation bilaterally. Abdomen soft, nontender, and obese without guarding or rebound. Inspection of the left foot reveals no evidence of erythema, no crepitance. Palpable dorsalis pedis pulse. Const Vital Signs: 10/09/24 16:55 Temperature 97.8 F Temperature Source Oral Pulse Rate 114 H Respiratory Rate 18 Blood Pressure 148/69 H Blood Pressure Mean 95 Pulse Ox 99 Oxygen Delivery Method Room Air MDM MDM MDM Narrative Medical decision making narrative: Differential diagnosis includes movement of hardware versus fracture versus contusion versus nonspecific foot pain. She was given 1 [place] for analgesia here, and x-rays were obtained of the left foot in 3 views. On my independent interpretation of her x-rays, there are postsurgical changes including hardware, but no evidence of a periprosthetic fracture, no noted loosening of hardware. There are arthritic changes as well. I reviewed the radiology report which confirms my independent interpretation. Initially my plan was to discharge her back to [facility], however I was approached by the RN, and was informed that the patient actually lives in assisted living at the facility, and her son who usually helps her is unable to care for her currently. She had excoriated skin folds as she has not been taking care of herself. RN had social work consulted. It was not felt that she can take care of herself in assisted living so I will obtain basic screening laboratories and discussed patient with the hospitalist for at least observation versus admission for placement. In discussion with social work, it was felt that the patient requires preauthorization but could be placed on observation. In discussion with the patient herself, she states that she used to shower every other day, but has not showered recently. Her son used to help her, and he was over at her house/independent living yesterday evening, but she now states that he is unable to help her because he is currently incarcerated. I reviewed her laboratory work and she has normal white count of 6.8 with hemoglobin 13.5, hematocrit 40.8, platelet count low at 106. When compared to prior laboratories, she has chronic thrombocytopenia. Review of her electrolyte panel shows BUN elevated at 23 with normal creatinine of 0.88, AST is slightly elevated at 40 which I think is nonspecific, as well as alk phos of 135, normal ALT of 23. Albumin chronically low, today 0.8. Her UA is pending. Regardless, given her inability to care for herself, I would we will discuss patient with the hospitalist for at least observation. Patient is in stable condition. Of note, I reviewed her urinalysis she was positive for leukocytes with microanalysis showing greater than 100 WBCs. She had 10-25 RBCs. Her urine was sent for culture. Although she has allergies to penicillin and ciprofloxacin as well as sulfa, I reviewed her prior medications and in 2021 and on other times/visit she has received Rocephin. She was ordered Rocephin 1 g intravenously for UTI. Patient discussed with Dr. Bryant. Disposition is admit in stable condition. History & Record Review Discussion w/independent historian: Patient Additional record(s) reviewed:: Prior labs (Chronic thrombocytopenia) Lab Data Attestation: I reviewed the patient's lab results. Labs: Laboratory Results - last 24 hr 10/09/24 10/09/24 18:55 20:10 WBC 6.8 RBC 4.67 Hgb 13.5 Hct 40.8 MCV 87.4 MCH 28.9 MCHC 33.1 RDW Std Deviation 51.0 H RDW Coeff of Bebo 15.9 H Plt Count 106 L MPV 11.8 Immature Gran % (Auto) 0.400 Neut % (Auto) 72.1 H Lymph % (Auto) 16.3 L [place] % (Auto) 8.3 Eos % (Auto) 2.5 Baso % (Auto) 0.4 Absolute Neuts (auto) 4.9 Absolute Lymphs (auto) 1.11 Nucleated RBC % 0 Sodium 138 Potassium 4.5 Chloride 106 Carbon Dioxide 21.0 Anion Gap 11 BUN 23 H Creatinine 0.88 Estim Creat Clear Calc 81.27 Est GFR (MDRD) Non-Af 70 BUN/Creatinine Ratio 26.6 H Glucose 138 H Calcium 9.7 Total Bilirubin 0.67 AST 40 H ALT 23 Alkaline Phosphatase 135 H Total Protein 8.4 Albumin 3.8 Globulin 4.6 H Albumin/Globulin Ratio 0.8 L Urine Color Yellow Urine Clarity Cloudy Urine pH 5.0 Ur Specific [place] 1.020 Urine Protein 30 H Urine Glucose (UA) 1000 H Urine Ketones Negative Urine Occult Blood 150 H Urine Nitrite Negative Urine Bilirubin Negative Urine Urobilinogen 1 H Ur Leukocyte Esterase 100 H Urine RBC 10-25 SEEN Urine WBC >100 SEEN Ur Squamous Epith Cells 0-5 SEEN Ur Transition Epith Cell 0-5 SEEN Amorphous Sediment 1+ Urine Bacteria 4+ Urine Mucus 0 SEEN Radiography Diagnostic Testing: Clinical Impression(s) from Imaging Studies Foot X-Ray 10/09/24 17:28 IMPRESSION: Status post internal fixation of calcaneal fracture. Mild degenerative arthritic changes. Soft tissue swelling. Reading Location: [facility] Management Discussion w/another healthcare provider: Hospitalist Discharge Plan Dx/Rx/DC Orders Clinical Impression: Pain of left heel, Debility, Obesity, Unable to care for self, UTI (urinary tract infection) Disposition Disposition: Acute Care Hospital [facility]
[2024-10-09] MEDS: HYDROcodone Bitartrate/Apap 5/325 Tablet PO (17:23)
--- NOTE | 2024-10-09 17:28 | RAD_ITS ---
EXAM: LEFT FOOT, 3 VIEWS CLINICAL HISTORY: PAIN COMPARISON: NO RELEVANT PRIOR. TECHNIQUE: AP, LATERAL, AND OBLIQUE. FINDINGS: A compression plate and screws fixing an old fracture of the calcaneus. Degenerative changes of the talar calcaneal and talonavicular joint. Soft tissue swelling. RAD/Foot min 3 Views IMPRESSION: Status post internal fixation of calcaneal fracture. Mild degenerative arthritic changes. Soft tissue swelling. Reading Location: [facility]
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
[2024-10-09 19:16] LABS: Absolute Lymphocyte Count 1.11 X10^3/uL (0.83-4.51); Absolute Neutrophil Count 4.9 X10^3/uL (2.0-7.7); Basophil# 0.03 X10^3/uL; Basophil% 0.4 % (0-1); Eosinophil# 0.17 X10^3/uL; Eosinophils% 2.5 % (0-5); Hematocrit 40.8 % (37-47); Hemoglobin 13.5 g/dL (12.0-15.0); Lymphocyte # 1.11 X10^3/ul (0.83-4.51); Lymphocyte % 16.3 % (19-41); Mean Corp Hgb Conc 33.1 g/dL (32-36); Mean Corpuscular Hgb 28.9 pg (27.0-32.0); Mean Corpuscular Volume 87.4 fL (81-99); Mean Platelet Vol. 11.8 fl (6.2-12.0); Monocyte# 0.57 X10^3/uL; Monocyte% 8.3 % (0-10); NRBC Flagged by Analyzer 0 % (0-5); Neutrophil # 4.92 X10^3/uL (2.7-7.7); Neutrophil % 72.1 % (47-70); Platelet Count 106 K/mm3 (150-450); RBC Distribution Width CV 15.9 % (11.6-14.6); Red Blood Count 4.67 M/mm3 (4.2-5.4); White Blood Count 6.8 K/mm3 (4.4-11.0)
[2024-10-09 19:31] LABS: ALB/GLOB Ratio 0.8 RATIO (0.9-2.4); AST(SGOT) 40 U/L (<=31); Alanine Aminotransfer ALT/SGPT 23 U/L (<=34); Albumin, Serum 3.8 g/dL (3.4-4.8); Alkaline Phosphatase 135 U/L (35-104); Anion Gap 11 (5-15); BUN 23 mg/dL (4-19); BUN/Creat Ratio 26.6 RATIO (10-20); Calcium,Total 9.7 mg/dL (7.6-11.0); Chloride 106 mmol/L (98-108); Creatinine, Serum 0.88 mg/dL (0.70-1.20); EST Glomerular Filtration Rate 70 (>60); Estimated Creatinine Clearance 81.27 ml/min (50-250); Globulin 4.6 g/dL (2.2-4.2); Glucose 138 mg/dL (70-99); Potassium 4.5 mmol/L (3.3-5.1); Protein, Total 8.4 g/dL (5.9-8.4); Sodium Level 138 mmol/L (133-145); Total Bilirubin 0.67 mg/dL (0.00-1.30)
--- NOTE | 2024-10-09 20:06 | ED.RN ---
ABBI PEDRO LPN, CALLED AND GIVEN PT. UPDATE.
[2024-10-09 20:15] LABS: Mucous, Urine 0 SEEN /hpf (<or=2+)
[2024-10-09 20:32] LABS: Color, Urine Yellow (Yellow); Glucose, Dipstick 1000 mg/dl (Normal); Ketone-Dipstick Negative (Negative); Leukocyte Esterase-Dipstick 100 /ul (Negative); Nitrite-Dipstick Negative (Negative); Occult Blood-Urine 150 /ul (Negative); Protein-Dipstick 30 mg/dl (Negative); Urine Bilirubin Dipstick Negative (Negative); Urine Clarity Cloudy (Clear); Urine Urobilinogen 1 mg/dl (Normal)
[2024-10-09] MEDS: clonazePAM 0.5 MG Tablet PO (20:43)
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
[2024-10-09 20:55] VITALS: BP 121/57; PULSE 102; RESP 20; O2SAT 98
[2024-10-09 21:02] LABS: White Blood Cells >100 SEEN /hpf (0-5)
[2024-10-09 21:07] LABS: Bacteria 4+ /hpf (None Seen)
[2024-10-09 21:09] LABS: Red Blood Cells-Urine 10-25 SEEN /hpf (0-5); Squamous Epithelial Cells - UA 0-5 SEEN /hpf (5-10); Transitional Epithelial - Ur 0-5 SEEN /hpf (0-5)
[2024-10-09 21:10] LABS: Amorphous Sediment 1+
--- NOTE | 2024-10-09 21:19 | PCM.HP.STD ---
[facility] General Date of Admission: 10/09/24 Date of Service: 10/09/24 Chief Complaint: Left Heel Pain, Poor Hygiene and Unable to Care for Herself. HPI Narrative RICK NINA, is a 73 F with a past medical history of essential hypertension; on lisinopril, hyperlipidemia; on atorvastatin, morbid obesity; with a BMI of 49.2 this admission, former tobacco abuse times ~45 years (quit ~2016), DM-2; of unknown control on dulaglutide weekly, empagliflozin daily, insulin glargine 40 units SQ twice daily and insulin lispro 3 times daily AC, history of DVT; not on anticoagulation, history of seizures; on lamotrigine, bipolar 1 disorder; with panic attacks on quetiapine and clonazepam twice daily, history of vitamin D deficiency; on ergocalciferol, history of calcaneal fracture of the Left foot; s/p ORIF (~2009) and frequent UTIs who is currently residing in assisted living at [facility] presents to [facility] ER complaining of worsening Left heel pain with patient notably having poor hygiene and unable to care for herself. Ms. Nina reports her acute symptoms began ~2 weeks prior to admission with increasing pain from her Left heel. She states the pain is severe and she feels like she is, having a baby out of her Left heel. She states her pain is made worse with weightbearing, walking and palpation and she speculated that she might have a severe case of plantar fasciitis. She states that on Sunday, September 08, 2024 she underwent x-rays after being seen by Dr. Shayna Malhotra with final results not available. To further complicate matters the patient's son, who usually helps care for her, is unable to help her currently because he is apparently incarcerated so she has not showered in several (5) days. She admits to darkened foul-smelling urine over the past few days. She was noted to have excoriated skin folds and extremely poor hygiene with [employer] having social work consulted and patient felt not to be able to take care of herself and assisted living she denies recent traumatic injury, increasing redness or significant swelling of the Left foot. There was also no report of fever, chills, nausea, vomiting, diarrhea, constipation, abdominal pain, chest pain, palpitations, heart racing, shortness of breath, headache or rash. In the ER she was noted to have a urinalysis grossly positive for Acute Cystitis; with microscopic hematuria complicated by Neuropathic Pain of the Left heel and Chronically Poor Hygiene with patient Unable to Care for Herself at assisted living so she was then admitted to the general medical floor for ongoing care for a stay that is expected to extend beyond 2 midnights. [facility] Medical History Obesity Anxiety Cancer Anxiety Diabetes Former smoker Hypertension DVT (deep venous thrombosis) Bipolar 1 disorder Hyperlipidemia Vitamin D deficiency History of seizures history of broken heel left foot History of recurrent UTIs Home Medications ?Medication ?Instructions ?Recorded ?Last Taken ?Type lactobacillus combination no.9 4 4,000 mmu cells PO DAILY 06/25/20 Unknown History billion cell capsule (Adult 50 Plus Probiotic) acetaminophen 325 mg tablet 650 mg PO Q4H PRN PRN Pain, fever 07/30/21 Unknown History (Tylenol) guaifenesin 100 mg/5 mL oral liquid 200 mg PO Q4H PRN cough 07/30/21 Unknown History ergocalciferol (vitamin D2) 1,250 50,000 unit PO Q14D suuplement 09/20/21 Unknown History mcg (50,000 unit) capsule triamcinolone acetonide 0.1 % 1 applic topical Q12H PRN PRN Rash 09/20/21 Unknown History topical cream insulin lispro 100 unit/mL See Protocol subcut TIDAC diabetes 11/22/21 Unknown History subcutaneous pen (Humalog KwikPen (U-100) Insulin) lamotrigine 100 mg tablet 100 mg PO DAILY seizures 11/22/21 Unknown History lisinopril 5 mg tablet 5 mg PO QDAY BP 11/22/21 Unknown History miconazole nitrate 2 % topical 1 applic topical BID Check with 11/22/21 Unknown History powder primary doctor blood sugar diagnostic (FreeStyle 11/23/21 Unknown History Lite Strips) blood-glucose meter (FreeStyle 11/23/21 Unknown History Lite Meter kit) lancets 28 gauge (FreeStyle 11/23/21 Unknown History Lancets) nystatin 100,000 unit/gram topical 1 applic topical TID #0 grams 11/24/21 Unknown Rx powder ([facility]) quetiapine 100 mg tablet 300 mg (3 x 100 mg) PO BID #0 tabs 11/24/21 Unknown Rx aspirin 81 mg chewable tablet 81 mg PO DAILY 05/06/22 Unknown History empagliflozin 10 mg tablet 10 mg PO DAILY 08/17/22 Unknown History (Jardiance) atorvastatin 40 mg tablet 40 mg PO QPM 11/24/22 Unknown History dulaglutide 3 mg/0.5 mL 3 mg subcut QWEEK 11/24/22 Unknown History subcutaneous pen injector (Trulicity) clonazepam 0.5 mg tablet 0.5 mg PO Q12H panic attack(s) 10/09/24 Unknown History insulin glargine 100 unit/mL (3 40 unit subcut BID 10/09/24 Unknown History mL) subcutaneous pen (Lantus Solostar U-100 Insulin) Allergy/AdvReac Type Severity Reaction Status Date / Time ciprofloxacin (From Cipro) Allergy Mild Anaphylaxis Verified 10/09/24 16:55 ciprofloxacin HCl (From Allergy Anaphylaxis Verified 10/09/24 16:55 Cipro) Iodinated Contrast Media Allergy Rash Verified 10/09/24 16:55 (Iodinated Contrast Media - IV Dye) paliperidone (From Invega) Allergy Rash Verified 10/09/24 16:55 Penicillins Allergy RASH AND Verified 10/09/24 16:55 ITCHING red (food color) Allergy Hives Verified 10/09/24 16:55 red dye Allergy Hives Verified 10/09/24 16:55 Sulfa (Sulfonamide Allergy RASH AND Verified 10/09/24 16:55 Antibiotics) ITCHING metformin AdvReac Nausea/Vom/ Verified 10/09/24 16:55 Diarrhea shellfish derived AdvReac Nausea/Vom/ Verified 10/09/24 16:55 Diarrhea Family History Mother Diabetes Hypertension Heart disease Thyroid disorder Father CVA (cerebral vascular accident) Diabetes Brother Parkinson disease Thyroid disorder Lupus Alcoholism Blood clots in brain Grandfather Heart disease Asthma Social History Smoking Status: Former smoker Tobacco: How many years used: 45 how long ago did patient quit smokin11/2016 substance use type: does not use what type of physical activity do you participate in: none ROS ROS Narrative Review of Systems: Constitutional: Patient denies fever or chills. Eyes: Patient denies changes in vision or discharge from eyes. ENT: Patient denies runny nose, sore throat or ear pain. Resp: Patient denies shortness of breath or cough. CV: Patient denies chest pain, palpitations, heart racing or lower extremity edema. GI: Patient denies abdominal pain, nausea, vomiting, diarrhea or constipation. : Patient denies dysuria but she was noted to have foul-smelling cloudy urine in ER. MSK: Patient admits to severe Left heel pain made worse with ambulation and palpation as per HPI. Skin: Patient has severe excoriations of her skin folds with evidence of chronically poor hygiene as per HPI. Psych: Patient has bipolar 1 disorder which is likely compromising her ability to care for self. She denies SI or HI. Neuro: Patient admits to neuropathic Left heel pain but she denies headache, paresthesias or focal neurologic deficits. Allergy: Patient denies lip swelling, tongue swelling or urticaria. Hematology: Patient denies easy bleeding or easy bruisability. Endocrinology: Patient denies polyuria, polydipsia, polyphagia or heat/cold intolerance. 14 point ROS otherwise negative save for positives noted above in HPI. Vital Signs Vital Signs Vital Signs: 10/09/24 16:55 Temperature 97.8 F Temperature Source Oral Pulse Rate 114 H Respiratory Rate 18 Blood Pressure 148/69 H Blood Pressure Mean 95 Pulse Ox 99 Oxygen Delivery Method Room Air Weight Weight: 295 lb 6.711 oz Body Mass Index (BMI) 49.1 Physical Exam Const alert, oriented x3 and no apparent distress Constitutional Narrative: Morbidly obese and very loquacious with flight of ideas. General Appearance: cooperative HEENT normocephalic, head/scalp atraumatic, hearing grossly normal bilaterally and moist oral mucous membranes Eyes PERRL, EOMs intact bilaterally and conjunctivae normal Neck no lymphadenopathy, supple and no JVD Resp normal respiratory effort, no retractions, no use of accessory muscles and clear to auscultation bilaterally Cardio regular rate and regular rhythm GI normal to inspection, nondistended, normoactive bowel sounds, soft to palpation, non-tender and non-distended GI Narrative: Morbidly obese. Extremity normal to inspection, full ROM and no clubbing, cyanosis or edema Extremity Narrative: Left heel tender palpation with no signs of acute infection or vascular compromise with good pulses throughout. Skin Skin Narrative: Patient has evidence of diffuse excoriations attributed to chronically poor hygiene. Neuro oriented x3, CN's II-XII intact bilaterally, moves all extremities and no focal motor deficits Sensorium / Orientation: awake, alert, oriented to person, oriented to place and oriented to time Speech: speech normal Psych Mood & Affect: anxious Results Medical Records Data Attestation: I reviewed the patient's medical records Lab / Micro Data Attestation: I reviewed the patient's lab results. 10/09/24 18:55 10/09/24 18:55 Labs: Laboratory Results - last 24 hr 10/09/24 18:55: WBC 6.8, RBC 4.67, Hgb 13.5, Hct 40.8, MCV 87.4, MCH 28.9, MCHC 33.1, RDW Std Deviation 51.0 H, RDW Coeff of [place]eb[place] 15.9 H, Plt Count 106 L, MPV 11.8, Immature Gran % (Auto) 0.400, Neut % (Auto) 72.1 H, Lymph % (Auto) 16.3 L, [place] % (Auto) 8.3, Eos % (Auto) 2.5, Baso % (Auto) 0.4, Absolute Neuts (auto) 4.9, Absolute Lymphs (auto) 1.11, Nucleated RBC % 0, Sodium 138, Potassium 4.5, Chloride 106, Carbon Dioxide 21.0, Anion Gap 11, BUN 23 H, Creatinine 0.88, Estim Creat Clear Calc 81.27, Est GFR (MDRD) Non-Af 70, BUN/Creatinine Ratio 26.6 H, Glucose 138 H, Calcium 9.7, Total Bilirubin 0.67, AST 40 H, ALT 23, Alkaline Phosphatase 135 H, Total Protein 8.4, Albumin 3.8, Globulin 4.6 H, Albumin/Globulin Ratio 0.8 L 10/09/24 20:10: Urine Color Yellow, Urine Clarity Cloudy, Urine pH 5.0, Ur Specific [place] 1.020, Urine Protein 30 H, Urine Glucose (UA) 1000 H, Urine Ketones Negative, Urine Occult Blood 150 H, Urine Nitrite Negative, Urine Bilirubin Negative, Urine Urobilinogen 1 H, Ur Leukocyte Esterase 100 H, Urine RBC 10-25 SEEN, Urine WBC >100 SEEN, Ur Squamous Epith Cells 0-5 SEEN, Ur Transition Epith Cell 0-5 SEEN, Amorphous Sediment 1+, Urine Bacteria 4+, Urine Mucus 0 SEEN Imaging Radiology Impression Foot X-Ray 10/09/24 17:28 IMPRESSION: Status post internal fixation of calcaneal fracture. Mild degenerative arthritic changes. Soft tissue swelling. Reading Location: [facility] Imaging Services [address] [place] [id number] Extremity Lower without Contra MR#: [id number] Acct: [id number] Name: RICK NINA Rep #: [id number] : 1950 F 73 From: Saul Sanchez MD PCP: Dr. Shayna Malhotra MD Status: ADM IN Study: Extremity Lower without Contra Date of Exam: 10/09/24 Exam# [id number] Ordering Dr: Missael Hernandez DO PROCEDURE: EXTREMITY LOWER WITHOUT CONTRA 10/09/2024 REASON FOR EXAM: SEVERE LEFT HEEL PAIN. TECHNIQUE: Axial CT images of the left ankle obtained without intravenous contrast. Coronal and Sagittal reconstruction series were provided. One or more dose reduction techniques were used (e.g., Automated exposure control, adjustment of the mA and/or kV according to patient size, use of iterative reconstruction technique RADIATION DOSE SUMMARY: CTDlvol: 15.35 mGy DLP: 534.14 mGycm COMPARISON: None available FINDINGS: Lateral calcaneal plate with screws and cannulated screw appears intact. No fracture identified. No dislocation. Moderate posterior subtalar and mild anterior subtalar joint osteoarthrosis. No osseous destruction or periosteal reaction identified. There is marked soft tissue subcutaneous swelling, edema which appears greater anterior, medial and posteriorly, clinically correlate with numerous soft tissue calcifications that can be seen with venous stasis. No definite deep fascial or muscular edema identified by CT. No soft tissue gas identified. CT/Extremity Lower without Contra IMPRESSION: Lateral calcaneal plate with screws and cannulated screw appears intact. No fracture identified. No dislocation. Moderate posterior subtalar and mild anterior subtalar joint osteoarthrosis. No osseous destruction or periosteal reaction identified. There is marked soft tissue subcutaneous swelling, edema which appears greater anterior, medial and posteriorly, clinically correlate with numerous soft tissue calcifications that can be seen with venous stasis. No definite deep fascial or muscular edema identified by CT. No soft tissue gas identified. Findings discussed by myself by phone with Dr. Hernandez at 2:20 a.m. 10/10/2024 Reading Location: [facility] CC: Dr. Missael Hernandez, ; Dr. Shayna Malhtora MD ~ Mortgage Loan Funder: Signed Assessment & Plan Assessment/Plan (1) Acute cystitis with hematuria: (2) Neuropathic pain of foot: (3) Poor hygiene: (4) Unable to care for self: (5) Bipolar 1 disorder: (6) Morbid obesity with BMI of 45.0-49.9, adult: (7) DM2 (diabetes mellitus, type 2): QUALIFIERS: Diabetes mellitus complication status: with other specified complication Diabetes mellitus terminal system operator insulin use: with terminal system operator use Qualified Code(s): E11.69 - Type 2 diabetes mellitus with other specified complication; Z79.4 - [facility] (current) use of insulin PLAN: Plan 1. Acute Cystitis; with microscopic hematuria in the setting of known frequent UTIs - Admit to general medical floor. Continue empiric IV ceftriaxone and await culture and sensitivity data. Give acetaminophen as needed for [id number] (level 1-5/10) pain or fever. Give oxycodone prn for severe (level 6-10/10) pain. 2. Neuropathic pain of the Left heel in the setting of a known history of calcaneal fracture of the Left foot; s/p ORIF (~2009) complicating #1 - We will start pregabalin 25 mg p.o. 3 times daily and titrate as needed to control symptoms. Checked CT scan of foot to evaluate for infection, inflammation or other acute abnormality that may not be apparent on x-ray with results noted above and with no signs of plantar fasciitis. 3. Chronically Poor Hygiene with patient Unable to Care for Herself at assisted living after the recent incarceration of her son compounding #1 & #2 - PT/OT and Case Management will be consulted to see this patient on rounds in the a.m. for further recommendations regarding higher level of placement with help appreciated in advance. We will continue nystatin powder to affected areas 3 times daily. 4. Bipolar 1 disorder; with panic attacks on quetiapine and clonazepam twice daily adding to the medical complexity of #1 - #3 - Maintain home regimen. Check STEVEN, UDS, B12 and folate to further evaluate for other potential contributing factors to her declining functional status. 5. Morbid Obesity; with a BMI of 49.2 this admission adding to the burden of disease outlined from #1 - #4 - Weight loss will be recommended. Check TSH. This complicates her case and may hamper recovery. 6. DM-2; of unknown control on dulaglutide weekly, empagliflozin daily, insulin glargine 40 units SQ twice daily and insulin lispro 3 times daily AC - ADA diet. FSBS q. AC/HS plus SSI. Maintain current insulin glargine regimen at ~75% of previous dosing to prevent hypoglycemia. Hold empagliflozin and restart dulaglutide as outpatient. Check hemoglobin A1c to objectively evaluate quality of diabetic control. 7. Essential hypertension; on lisinopril - Resume lisinopril as before. Give IV hydralazine as needed for systolic blood pressure greater than 160 mmHg. 8. Hyperlipidemia; on atorvastatin - Continue statin and check lipid profile. 9. History of seizures; on lamotrigine - Current treatment to be resumed plus give as needed IV lorazepam for breakthrough seizure activity. 10. Former tobacco abuse times ~45 years (quit ~2017) - Noted. 11. History of DVT; not on anticoagulation - Noted with no signs of recurrence at this time. 12. History of vitamin D deficiency; on ergocalciferol - Continue vitamin D supplementation. 13. DVT prophylaxis - Enoxaparin 40 mg sq BID. Patient noted to have moderate thrombocytopenia of 106K present on admission with plan to discontinue this agent if platelet count drops below 100K. Total time: Approximately (but not less than) 75 minutes. Charges/Coding Visit Charges Inpatient E&M: 94819 Init Hosp L3
[2024-10-09] MEDS: Ceftriaxone 1 GM/50 ML BAG IV (21:29)
--- NOTE | 2024-10-09 22:15 | CT_ITS ---
PROCEDURE: EXTREMITY LOWER WITHOUT CONTRA 10/09/2024 REASON FOR EXAM: SEVERE LEFT HEEL PAIN. TECHNIQUE: Axial CT images of the left ankle obtained without intravenous contrast. Coronal and Sagittal reconstruction series were provided. One or more dose reduction techniques were used (e.g., Automated exposure control, adjustment of the mA and/or kV according to patient size, use of iterative reconstruction technique RADIATION DOSE SUMMARY: CTDlvol: 15.35 mGy DLP: 534.14 mGycm COMPARISON: None available FINDINGS: Lateral calcaneal plate with screws and cannulated screw appears intact. No fracture identified. No dislocation. Moderate posterior subtalar and mild anterior subtalar joint osteoarthrosis. No osseous destruction or periosteal reaction identified. There is marked soft tissue subcutaneous swelling, edema which appears greater anterior, medial and posteriorly, clinically correlate with numerous soft tissue calcifications that can be seen with venous stasis. No definite deep fascial or muscular edema identified by CT. No soft tissue gas identified. CT/Extremity Lower without Contra IMPRESSION: Lateral calcaneal plate with screws and cannulated screw appears intact. No fra cture identified. No dislocation. Moderate posterior subtalar and mild anterior subtalar joint osteoarthrosis. No osseous destruction or periosteal reaction identified. There is marked soft tissue subcutaneous swelling, edema which appears greater anterior, medial and posteriorly, clinically correlate with numerous soft tissue calcifications that can be seen with venous stasis. No definite deep fascial or muscular edema identified by CT. No soft tissue gas identified. Findings discussed by myself by phone with Dr. Hernandez at 2:20 a.m. 10/11/19 25 Reading Location: [id number]
[2024-10-09 22:34] LABS: Alcohol, Blood (Medical)-Serum < 10.1 mg/dL (<=10.0)
[2024-10-09 22:42] LABS: Amphetamine Urine NEGATIVE (<1000 ng/mL); Barbiturate Urine NEGATIVE (< 200 ng/mL); Benzodiazepine Urine NEGATIVE (< 200 ng/mL); Buprenorphine Urine NEGATIVE (< 200 ng/mL); Cocaine Urine NEGATIVE (< 300 ng/mL); Fentanyl, Urine NEGATIVE; Methadone Urine NEGATIVE (< 300 ng/mL); Opiates Urine NEGATIVE (< 300 ng/mL); Oxycodone, Urine NEGATIVE (< 100 ng/mL); PCP Urine NEGATIVE (< 25 ng/mL); THC Urine NEGATIVE (< 50 ng/mL)
[2024-10-09 22:59] LABS: Erythrocyte Sedimentation Rate 49 mm/hr (0-30)
[2024-10-09 23:02] LABS: CRP 5.92 mg/L (0.0-3.0); Magnesium 2.1 mg/dL (1.5-2.2)
[2024-10-09 23:05] VITALS: BMI 48.6
[2024-10-09 23:27] VITALS: PULSE 97
[2024-10-09 23:38] VITALS: BP 140/60; PULSE 101; RESP 16; TEMP 36.9; O2SAT 96
[2024-10-09] MEDS: Enoxaparin 40 MG/0.4 ML Syringe SC (23:48)
[2024-10-09] MEDS: 0.9% Normal Saline (1000mL) 1,000 ML 70 ML IV (23:48)
[2024-10-09 23:51] LABS: Vitamin B12 379 pg/mL (180-914)
[2024-10-09] MEDS: Nystatin Powder 15gm Bottle 1 APPLIC TOPICAL (23:51)
[2024-10-10] VITALS (10 sets, daily range): BP systolic 116–156; BP diastolic 52–89; PULSE 70–112; RESP 16–20; TEMP 36.4–37.1; O2SAT 94–99; BMI 48.6
[2024-10-10] MEDS: 0.9% Saline Lock 10 ML Syringe IV
[2024-10-10 00:07] LABS: Bedside Glucose 148 mg/dL (74-106)
[2024-10-10] MEDS: Pregabalin 25 MG Capsule PO ×3 (00:07→22:26)
[2024-10-10 00:16] LABS: Hemoglobin A1c 7.2 % (<=5.6)
[2024-10-10] MEDS: Acetaminophen 325 MG Tablet 650 MG PO ×2 (05:55→23:40)
[2024-10-10] MEDS: oxyCODONE 5 MG Tablet PO ×2 (05:55→23:41)
[2024-10-10 06:03] LABS: Absolute Lymphocyte Count 1.03 X10^3/uL (0.83-4.51); Absolute Neutrophil Count 3.4 X10^3/uL (2.0-7.7); Basophil# 0.03 X10^3/uL; Basophil% 0.6 % (0-1); Eosinophil# 0.27 X10^3/uL; Eosinophils% 5.1 % (0-5); Hematocrit 37.6 % (37-47); Hemoglobin 12.3 g/dL (12.0-15.0); Lymphocyte # 1.03 X10^3/ul (0.83-4.51); Lymphocyte % 19.6 % (19-41); Mean Corp Hgb Conc 32.7 g/dL (32-36); Mean Corpuscular Hgb 28.8 pg (27.0-32.0); Mean Corpuscular Volume 88.1 fL (81-99); Mean Platelet Vol. 11.7 fl (6.2-12.0); Monocyte# 0.48 X10^3/uL; Monocyte% 9.1 % (0-10); NRBC Flagged by Analyzer 0 % (0-5); Neutrophil # 3.43 X10^3/uL (2.7-7.7); Neutrophil % 65.4 % (47-70); Platelet Count 100 K/mm3 (150-450); RBC Distribution Width CV 15.9 % (11.6-14.6); RBC Distribution Width SD 51.4 fl (35.1-43.9); Red Blood Count 4.27 M/mm3 (4.2-5.4); White Blood Count 5.3 K/mm3 (4.4-11.0)
[2024-10-10] MEDS: Nystatin Powder 15gm Bottle 1 APPLIC TOPICAL ×3 (06:03→22:27)
[2024-10-10] MEDS: Insulin Lispro 100 UNIT/ML INSULN.PEN SC ×3 (06:03→17:21)
[2024-10-10 06:31] LABS: Bedside Glucose 159 mg/dL (74-106)
[2024-10-10 06:34] LABS: Cholesterol 103 mg/dL (<=200); High Density Lipoprotein 56 mg/dL; Low Density Lipoprotein Calc. 31 mg/dL; Phosphorus 3.3 mg/dL (2.7-4.5); Triglycerides 82 mg/dL; Very Low Density Lipoprotein 16 mg/dL (5-40); cholesterol:hdl ratio screen 1.84
[2024-10-10 07:15] LABS: AST(SGOT) 37 U/L (<=31); Alanine Aminotransfer ALT/SGPT 23 U/L (<=34); Albumin, Serum 3.5 g/dL (3.4-4.8); Alkaline Phosphatase 122 U/L (35-104); Anion Gap 13 (5-15); BUN 20 mg/dL (4-19); BUN/Creat Ratio 25.4 RATIO (10-20); Calcium,Total 8.9 mg/dL (7.6-11.0); Chloride 106 mmol/L (98-108); Creatinine, Serum 0.78 mg/dL (0.70-1.20); EST Glomerular Filtration Rate 81 (>60); Estimated Creatinine Clearance 88.83 ml/min (50-250); Globulin 3.7 g/dL (2.2-4.2); Glucose 151 mg/dL (70-99); Potassium 4.3 mmol/L (3.3-5.1); Protein, Total 7.2 g/dL (5.9-8.4); Sodium Level 138 mmol/L (133-145); Total Bilirubin 0.68 mg/dL (0.00-1.30)
--- NOTE | 2024-10-10 07:39 | PN.HOSP_ITS ---
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 (10/09/24) Objective Data Objective Data Vital Signs: Vital Signs Temp Pulse Resp BP Pulse Ox O2 Del Method 98.7 F 96 18 133/66 H 98 Room Air 10/10/24 05:33 10/10/24 05:33 10/10/24 05:33 10/10/24 05:33 10/10/24 05:33 10/10/24 05:33 Oxygen Delivery Method Room Air Weight: 292 lb 5.327 oz Body Mass Index (BMI) 48.6 Intake & Output: Intake and Output for Last 24 Hours 10/08/24 10/09/24 10/10/24 23:59 23:59 23:59 Intake Total 50 / 50 Output Total 1150 / 1150 Balance 50 / -500 -1150 / -1150 Lab / Micro Data 10/10/24 05:21 10/10/24 05:21 Labs: Laboratory Results - last 24 hr 10/09/24 18:55: WBC 6.8, RBC 4.67, Hgb 13.5, Hct 40.8, MCV 87.4, MCH 28.9, MCHC 33.1, RDW Std Deviation 51.0 H, RDW Coeff of Bebo 15.9 H, Plt Count 106 L, MPV 11.8, Immature Gran % (Auto) 0.400, Neut % (Auto) 72.1 H, Lymph % (Auto) 16.3 L, Parker % (Auto) 8.3, Eos % (Auto) 2.5, Baso % (Auto) 0.4, Absolute Neuts (auto) 4.9, Absolute Lymphs (auto) 1.11, Nucleated RBC % 0, ESR 49 H, Sodium 138, Potassium 4.5, Chloride 106, Carbon Dioxide 21.0, Anion Gap 11, BUN 23 H, Creatinine 0.88, Estim Creat Clear Calc 81.27, Est GFR (MDRD) Non-Af 70, BUN/Creatinine Ratio 26.6 H, Glucose 138 H, Hemoglobin A1c 7.2 H, Calcium 9.7, Magnesium 2.1, Total Bilirubin 0.67, AST 40 H, ALT 23, Alkaline Phosphatase 135 H, C-React Prot Ext Range 5.92 H, Total Protein 8.4, Albumin 3.8, Globulin 4.6 H , Albumin/Globulin Ratio 0.8 L, Vitamin B12 379, TSH 4.730 H, Ethyl Alcohol < 10.1 10/09/24 20:10: Urine Color Yellow, Urine Clarity Cloudy, Urine pH 5.0, Ur Specific [place] 1.020, Urine Protein 30 H, Urine Glucose (UA) 1000 H, Urine Ketones Negative, Urine Occult Blood 150 H, Urine Nitrite Negative, Urine Bilirubin Negative, Urine Urobilinogen 1 H, Ur Leukocyte Esterase 100 H, Urine RBC 10-25 SEEN, Urine WBC >100 SEEN, Ur Squamous Epith Cells 0-5 SEEN, Ur Transition Epith Cell 0-5 SEEN, Amorphous Sediment 1+, Urine Bacteria 4+, Urine Mucus 0 SEEN, Urine Opiates Screen NEGATIVE, U Buprenorphine Qual NEGATIVE, Ur Oxycodone Screen NEGATIVE, Urine Methadone Screen NEGATIVE, Urine Fentanyl Screen NEGATIVE, Ur Barbiturates Screen NEGATIVE, Ur Phencyclidine Scrn NEGATIVE, Ur Amphetamines Screen NEGATIVE, U Benzodiazepines Scrn NEGATIVE, Urine Cocaine Screen NEGATIVE, U Cannabinoids Screen NEGATIVE 10/09/24 23:50: POC Glucose 148 H 10/10/24 05:21: WBC 5.3, RBC 4.27, Hgb 12.3, Hct 37.6, MCV 88.1, MCH 28.8, MCHC 32.7, RDW Std Deviation 51.4 H, RDW Coeff of [place]ebo 15.9 H, Plt Count 100 L, MPV 11.7, Immature Gran % (Auto) 0.200, Neut % (Auto) 65.4, Lymph % (Auto) 19.6, Parker % (Auto) 9.1, Eos % (Auto) 5.1 H, Baso % (Auto) 0.6, Absolute Neuts (auto) 3.4, Absolute Lymphs (auto) 1.03, Nucleated RBC % 0, Sodium Cancelled 05/07/25 05:21: Sodium 138, Potassium Cancelled 10/10/24 05:21: Potassium 4.3, Chloride Cancelled 10/10/24 05:21: Chloride 106, Carbon Dioxide Cancelled 10/10/24 05:21: Carbon Dioxide 19.0 L, Anion Gap Cancelled 10/10/24 05:21: Anion Gap 13, BUN Cancelled 10/10/24 05:21: BUN 20 H, Creatinine Cancelled 10/10/24 05:21: Creatinine 0.78, Estim Creat Clear Calc 88.83, Est GFR (MDRD) Non-Af Cancelled 10/10/24 05:21: Est GFR (MDRD) Non-Af 81, BUN/Creatinine Ratio Cancelled 10/10/24 05:21: BUN/Creatinine Ratio 25.4 H, Glucose Cancelled 10/10/24 05:21: Glucose 151 H, Calcium Cancelled 10/10/24 05:21: Calcium 8.9, Phosphorus 3.3, Total Bilirubin Cancelled 10/10/24 05:21: Total Bilirubin 0.68, AST Cancelled 10/10/24 05:21: AST 37 H, ALT Cancelled 10/10/24 05:21: ALT 23, Alkaline Phosphatase Cancelled 10/10/24 05:21: Alkaline Phosphatase 122 H, Total Protein Cancelled 10/10/24 05:21: Total Protein 7.2, Albumin Cancelled 10/10/24 05:21: Albumin 3.5, Globulin Cancelled 10/10/24 05:21: Globulin 3.7, Albumin/Globulin Ratio Cancelled 10/10/24 05:21: Albumin/Globulin Ratio 1.0, Triglycerides 82, Cholesterol 103, LDL Cholesterol, Calc 31, VLDL Cholesterol 16, HDL Cholesterol 56, Cholesterol/HDL Ratio 1.84, Serum Folate 7.20 10/10/24 05:45: POC Glucose 159 H Radiography Diagnostic Testing: Radiology Impression Foot X-Ray 10/09/24 17:28 IMPRESSION: Status post internal fixation of calcaneal fracture. Mild degenerative arthritic changes. Soft tissue swelling. Reading Location: [facility] Lower Extremity CT 10/09/24 22:15 IMPRESSION: Lateral calcaneal plate with screws and cannulated screw appears intact. No fracture identified. No dislocation. Moderate posterior subtalar and mild anterior subtalar joint osteoarthrosis. No osseous destruction or periosteal reaction identified. There is marked soft tissue subcutaneous swelling, edema which appears greater anterior, medial and posteriorly, clinically correlate with numerous soft tissue calcifications that can be seen with venous stasis. No definite deep fascial or muscular edema identified by CT. No soft tissue gas identified. Findings discussed by myself by phone with Dr. Hernandez at 2:20 a.m. 10/10/2024 Reading Location: [facility] Physical Exam Narrative Seen and examined. Patient is talking nonstop. As per nursing staff she has been talking for last 3 days, sleeping less, hypomania condition. She is not directable and does not reply to the ask questions. Physical exam General: Alert, unclear about the orientation. HEENT: Atraumatic, PERRLA, EOMI, Normocephalic. Oral: No Gingival or Mucosal Lesions/ Ulcerations Neck: Supple, No JVD, Negative Carotid Bruits Chest wall/Lungs: Air entry diminished in bilateral lung bases. No crepitation/rhonchi Cardiovascular: Regular rate and rhythm, Normal S1,S2, No M/G/R Abdomen: Bowel Sounds Present, Soft, Non Tender, Non-Distended : No dysuria. No renal angle tenderness. No suprapubic tenderness. Extremities: Bilateral lower extremity with lymphedema, chronic capillary Refill Less than 3 Seconds Skin: Purulent stain on the sheet probably from left leg. Intertriginous dermatitis/candidiasis Musculoskeletal: No Tenderness to Palpation of Joints or Extremities Neurological: Cranial nerves II-XII grossly intact, DTR 2+/4. No acute focal neurological deficit. Psych/Mental Status: Hypomania and behavior, talking nonstop. Does not follow command. Circumstantial ideas and thoughts Assessment & Plan Assessment/Plan (1) Acute cystitis with hematuria: (2) Neuropathic pain of foot: (3) Poor hygiene: (4) Unable to care for self: (5) Bipolar 1 disorder: (6) Morbid obesity with BMI of 45.0-49.9, adult: (7) DM2 (diabetes mellitus, type 2): QUALIFIERS: Diabetes mellitus complication status: with other specified complication Diabetes mellitus [facility] insulin use: with intermediate frame tender use Qualified Code(s): E11.69 - Type 2 diabetes mellitus with other specified complication; Z79.4 - assisted (current) use of insulin PLAN: Plan 73-year-old female being admitted for increasing left foot/heel pain for last 2 weeks. She had pins placed in her left foot approximately 15 years ago after she had fracture in the heel. She cannot bear weight 1. Severe left heel pain with history of left talar fracture about 15 years ago: CT of lower extremity reviewed and shows lateral calcaneal plate with screws are intact. No fracture identified. No dislocation. 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 No osseous destruction but marked soft tissue subcutaneous swelling edema appears greater anterior medial and posteriorly. No definite deep fascial or muscular edema. No soft tissue gas. Will consult rn baby for further opinion. PT and OT and pain control. CRP and ESR elevated. 2. Abnormal UA, unclear about UTI: Patient cannot give history about lower urinary tract symptoms as she is in hypomania state. UA shows LE 100 but nitrite negative, WBC more than 100 cells, RBC 10-25, squamous epithelial 0-5 cells. Bacteria 4+. Empirically on IV ceftriaxone. Prelim urine culture shows GNR 80,000?100,000 colonies 3 bipolar 1 disorder; in hypomania episode: Patient is talking nonstop, not directable, cannot answer question, circumstantial and tangential thoughts and behavioral disorder: Patient on Seroquel. Clonazepam added. Morbid Obesity; with a BMI of 49.2 kg/m2 this admisson - Weight loss recommended DM-2; of unknown control on dulaglutide weekly, empagliflozin daily, insulin glargine 40 units SQ twice daily and insulin lispro 3 times daily AC: Accu-Chek before meals and at bedtime with Humalog sliding scale coverage and hypoglycemia protocol. Glucose is 165, 159 acceptable range. Essential hypertension; on lisinopril - Resume lisinopril as before. BP elevated 149/89. Hyperlipidemia; on atorvastatin - Continue statin TSH 4.73 upper limit normal. B12 379. Folic acid normal. Chronic history of seizures; on lamotrigine - Current treatment to be resumed plus give as needed IV lorazepam for breakthrough seizure activity. 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 Patient noted to have moderate thrombocytopenia of 106K present on admission with plan to discontinue this agent if platelet count drops below 100K. Full code Microbiology Past 72 Hours 10/09/24 20:10 Urine, Clean Catch Urine Culture - Preliminary Gram negative jamaal Laboratory Results 10/09/24 18:55: WBC 6.8, RBC 4.67, Hgb 13.5, Hct 40.8, MCV 87.4, MCH 28.9, MCHC 33.1, RDW Std Deviation 51.0 H, RDW Coeff of Bebo 15.9 H, Plt Count 106 L, MPV 11.8, Immature Gran % (Auto) 0.400, Neut % (Auto) 72.1 H, Lymph % (Auto) 16.3 L, Parker % (Auto) 8.3, Eos % (Auto) 2.5, Baso % (Auto) 0.4, Absolute Neuts (auto) 4.9, Absolute Lymphs (auto) 1.11, Nucleated RBC % 0, ESR 49 H, Sodium 138, Potassium 4.5, Chloride 106, Carbon Dioxide 21.0, Anion Gap 11, BUN 23 H, Creatinine 0.88, Estim Creat Clear Calc 81.27, Est GFR (MDRD) Non-Af 70, BUN/Creatinine Ratio 26.6 H, Glucose 138 H, Hemoglobin A1c 7.2 H, Calcium 9.7, Magnesium 2.1, Total Bilirubin 0.67, AST 40 H, ALT 23, Alkaline Phosphatase 135 H, C-React Prot Ext Range 5.92 H, Total Protein 8.4, Albumin 3.8, Globulin 4.6 H , Albumin/Globulin Ratio 0.8 L, Vitamin B12 379, TSH 4.730 H, Ethyl Alcohol < 10.1 10/09/24 20:10: Urine Color Yellow, Urine Clarity Cloudy, Urine pH 5.0, Ur Specific [place] 1.020, Urine Protein 30 H, Urine Glucose (UA) 1000 H, Urine Ketones Negative, Urine Occult Blood 150 H, Urine Nitrite Negative, Urine Bilirubin Negative, Urine Urobilinogen 1 H, Ur Leukocyte Esterase 100 H, Urine RBC 10-25 SEEN, Urine WBC >100 SEEN, Ur Squamous Epith Cells 0-5 SEEN, Ur Transition Epith Cell 0-5 SEEN, Amorphous Sediment 1+, Urine Bacteria 4+, Urine Mucus 0 SEEN, Urine Opiates Screen NEGATIVE, U Buprenorphine Qual NEGATIVE, Ur Oxycodone Screen NEGATIVE, Urine Methadone Screen NEGATIVE, Urine Fentanyl Screen NEGATIVE, Ur Barbiturates Screen NEGATIVE, Ur Phencyclidine Scrn NEGATIVE, Ur Amphetamines Screen NEGATIVE, U Benzodiazepines Scrn NEGATIVE, Urine Cocaine Screen NEGATIVE, U Cannabinoids Screen NEGATIVE 10/09/24 23:50: POC Glucose 148 H 10/10/24 05:21: WBC 5.3, RBC 4.27, Hgb 12.3, Hct 37.6, MCV 88.1, MCH 28.8, MCHC 32.7, RDW Std Deviation 51.4 H, RDW Coeff of Bebo 15.9 H, Plt Count 100 L, MPV 11.7, Immature Gran % (Auto) 0.200, Neut % (Auto) 65.4, Lymph % (Auto) 19.6, Parker % (Auto) 9.1, Eos % (Auto) 5.1 H, Baso % (Auto) 0.6, Absolute Neuts (auto) 3.4, Absolute Lymphs (auto) 1.03, Nucleated RBC % 0, Sodium Cancelled 10/10/24 05:21: Sodium 138, Potassium Cancelled 10/10/24 05:21: Potassium 4.3, Chloride Cancelled 10/10/24 05:21: Chloride 106, Carbon Dioxide Cancelled 10/10/24 05:21: Carbon Dioxide 19.0 L, Anion Gap Cancelled 10/10/24 05:21: Anion Gap 13, BUN Cancelled 10/10/24 05:21: BUN 20 H, Creatinine Cancelled 10/10/24 05:21: Creatinine 0.78, Estim Creat Clear Calc 88.83, Est GFR (MDRD) Non-Af Cancelled 10/10/24 05:21: Est GFR (MDRD) Non-Af 81, BUN/Creatinine Ratio Cancelled 10/10/24 05:21: BUN/Creatinine Ratio 25.4 H, Glucose Cancelled 10/10/24 05:21: Glucose 151 H, Calcium Cancelled 10/10/24 05:21: Calcium 8.9, Phosphorus 3.3, Total Bilirubin Cancelled 10/10/24 05:21: Total Bilirubin 0.68, AST Cancelled 10/10/24 05:21: AST 37 H, ALT Cancelled 10/10/24 05:21: ALT 23, Alkaline Phosphatase Cancelled 10/10/24 05:21: Alkaline Phosphatase 122 H, Total Protein Cancelled 10/10/24 05:21: Total Protein 7.2, Albumin Cancelled 10/10/24 05:21: Albumin 3.5, Globulin Cancelled 10/10/24 05:21: Globulin 3.7, Albumin/Globulin Ratio Cancelled 10/10/24 05:21: Albumin/Globulin Ratio 1.0, Triglycerides 82, Cholesterol 103, LDL Cholesterol, Calc 31, VLDL Cholesterol 16, HDL Cholesterol 56, Cholesterol/HDL Ratio 1.84, Serum Folate 7.20 10/10/24 05:45: POC Glucose 159 H 10/10/24 11:56: POC Glucose 165 H Charges/Coding Visit Charges Inpatient E&M: 21027 Subs Hosp L2
[2024-10-10] MEDS: Aspirin 81 MG TAB.CHEW PO (10:00)
[2024-10-10] MEDS: Lactobacillis Acidophilus 1 CAP PO (10:01)
[2024-10-10] MEDS: Menthol/Lanolin/Calamine/Znox 113 GM Tube 1 APPLIC TOPICAL ×2 (10:01→22:27)
[2024-10-10] MEDS: Insulin Glargine-YFGN 100 UNIT/ML Pen 30 UNIT SC ×3 (10:03→22:37)
[2024-10-10] MEDS: QUEtiapine 100 MG Tablet 300 MG PO ×2 (10:04)
[2024-10-10] MEDS: lamoTRIgine 100 MG Tablet PO (10:05)
[2024-10-10] MEDS: Enoxaparin 40 MG/0.4 ML Syringe SC ×2 (10:06→22:27)
[2024-10-10] MEDS: Lisinopril 5 MG Tablet PO (10:06)
[2024-10-10 12:18] LABS: Bedside Glucose 165 mg/dL (74-106)
[2024-10-10] MEDS: clonazePAM 0.5 MG Tablet PO ×3 (14:38→23:40)
--- NOTE | 2024-10-10 15:34 | CASEMGMT ---
Social Work SW placed call to Franklin, director of [facility] to discuss pt's history. Pt has resided at [facility] for the last 4.5 years. [facility] staff attempt to provide care including showering and taking pt to doctor appointments but pt continually refuses. [facility] staff does administer medication and Franklin confirms that pt does accept and take all medications as ordered including her psych meds. Franklin reports that pt wants to sit and do nothing. While at the [facility], pt has been A&Ox3 and no concerns with cognition or hallucinations. On 10/08/24 Pt's son, who was staying at [facility] with pt, became belligerent with [facility] staff and was involved. While at the [facility] with pt, pt's son was arrested on outstanding warrants. Franklin reports that when pt's [facility] room was being cleaned today, bedbugs were found in pt room. SW notified nursing. SW met with pt in pt room. Pt sitting in chair, leaning on the window sill and looking out the window. Pt has a napkin held to the window and SW inquired about this. Pt had written on napkin, Cat this is Vida I am in room 303. Pt looking out the window and talking. Pt telling SW that Cat Wheeler in out her window and pt can see him and his amplifier. Visual hallucinations are continuous while SW is in the room. PT telling SW of her relationship with Cat and that he has tried to call her on the room phone, but the IV pole was in the way and she could not reach the phone when he called. SW collaborated with nursing. Nursing to notify physician of pt's visual hallucinations. LATASHA Gordon
[2024-10-10] MEDS: QUEtiapine 100 MG Tablet PO (17:22)
[2024-10-10 17:44] LABS: Bedside Glucose 196 mg/dL (74-106)
[2024-10-10] MEDS: MELATONIN 3 MG TABLET PO (22:26)
[2024-10-10] MEDS: QUEtiapine 100 MG Tablet 400 MG PO (22:27)
[2024-10-10] MEDS: Atorvastatin Calcium 40 MG Tablet PO (22:28)
[2024-10-10] MEDS: Ceftriaxone 1 GM/50 ML BAG IV (22:44)
[2024-10-10 22:58] LABS: Bedside Glucose 159 mg/dL (74-106)
[2024-10-11] MEDS: Cyanocobalamin (B12) 1,000 MCG/ML Vial 1000 MCG SC (01:34)
[2024-10-11 04:01] VITALS: PULSE 102
[2024-10-11 06:00] VITALS: BMI 49.6
[2024-10-11] MEDS: Nystatin Powder 15gm Bottle 1 APPLIC TOPICAL (06:40)
[2024-10-11] MEDS: clonazePAM 0.5 MG Tablet PO (06:46)
[2024-10-11] MEDS: Pregabalin 25 MG Capsule PO (06:46)
[2024-10-11 06:49] VITALS: BP 153/76; PULSE 106; RESP 20; TEMP 36.4; O2SAT 96
[2024-10-11 06:58] LABS: Bedside Glucose 137 mg/dL (74-106)
[2024-10-11 07:00] VITALS: O2SAT 95
[2024-10-11 07:03] LABS: Absolute Neutrophil Count 2.6 X10^3/uL (2.0-7.7); Basophil# 0.03 X10^3/uL; Basophil% 0.7 % (0-1); Eosinophil# 0.23 X10^3/uL; Eosinophils% 5.1 % (0-5); Hemoglobin 11.3 g/dL (12.0-15.0); Lymphocyte % 26.8 % (19-41); Mean Corp Hgb Conc 33.2 g/dL (32-36); Mean Corpuscular Hgb 28.8 pg (27.0-32.0); Mean Corpuscular Volume 86.7 fL (81-99); Mean Platelet Vol. 11.1 fl (6.2-12.0); Monocyte# 0.44 X10^3/uL; Monocyte% 9.8 % (0-10); NRBC Flagged by Analyzer 0 % (0-5); Neutrophil # 2.57 X10^3/uL (2.7-7.7); Neutrophil % 57.4 % (47-70); POSITIVE COUNT YES; Platelet Count 95 K/mm3 (150-450); RBC Distribution Width SD 50.8 fl (35.1-43.9); Red Blood Count 3.92 M/mm3 (4.2-5.4); White Blood Count 4.5 K/mm3 (4.4-11.0)
[2024-10-11 07:15] LABS: Differential Indicated SCAN CRITERIA MET
[2024-10-11 07:42] LABS: Anion Gap 10 (5-15); BUN 21 mg/dL (4-19); BUN/Creat Ratio 28.3 RATIO (10-20); Calcium,Total 9.2 mg/dL (7.6-11.0); Carbon Dioxide 20.7 mmol/L (21.0-32.0); Chloride 108 mmol/L (98-108); Creatinine, Serum 0.76 mg/dL (0.70-1.20); EST Glomerular Filtration Rate 84 (>60); Estimated Creatinine Clearance 89.89 ml/min (50-250); Glucose 131 mg/dL (70-99); Magnesium 2.1 mg/dL (1.5-2.2); Phosphorus 3.7 mg/dL (2.7-4.5); Potassium 3.9 mmol/L (3.3-5.1); Sodium Level 139 mmol/L (133-145)
[2024-10-11] MEDS: Aspirin 81 MG TAB.CHEW PO (07:55)
[2024-10-11] MEDS: Cyanocobalamin 500 MCG Tablet 1000 MCG PO (07:55)
[2024-10-11 07:56] LABS: Platelet Estimate SLT DEC (ADEQ)
--- NOTE | 2024-10-11 09:07 | CASEMGMT ---
JESUS CM: [facility] Transitions [employer]ing [employer] Operator Radha Valdesgamal ([phone]) phoned requesting update on pt's condition and discharge plan. Update provided including plan for crisis c/s for possible psychiatric admission on this date. Per Radha, pt has a waiver branch services manager Xiao Rod ([phone]) and a [facility] Behavioral Health Sliver Chopper ([phone]). Demetra Serna RN AC
--- NOTE | 2024-10-11 09:21 | CASEMGMT ---
Social Work Pt seen by [facility] last evening and placement at [facility] was secured. Pt to be picked up today at 9am. Phone call placed to crisis and SW requested Assessment be faxed. Crisis Assessment received and placed on pt chart. Phone call to Franklin, Director at [facility] and informed of placement at [facility]. Pt son currently in snf. Phone call to second contact, pt brother Leandro Ramos and informed of transfer to [facility]. Phone call to pt's Direction Home Automatic Coin Machine Mechanic Erum Rod and left with pt admission and discharge plan. LATASHA Gordon
--- NOTE | 2024-10-11 11:35 | DS.PCM_ITS ---
Providers Date of Admission: 10/09/24 Date of Discharge: 10/11/24 Primary Care Physician: Dr. Shayna Malhotra MD Reason For Visit: ACUTE CYSTITIS, NEUROPATHIC PAIN OF LEFT FOOT AND Diagnosis Discharge Diagnosis (1) Acute cystitis with hematuria: Status: Acute Code(s): N30.01 - Acute cystitis with hematuria (2) Neuropathic pain of foot: Status: Acute Code(s): M79.2 - Neuralgia and neuritis, unspecified (3) Poor hygiene: Status: Acute Code(s): R46.0 - Very low level of personal hygiene (4) Unable to care for self: Status: Acute Code(s): Z78.9 - Other specified health status (5) Bipolar 1 disorder: Status: Acute Code(s): F31.9 - Bipolar disorder, unspecified (6) Morbid obesity with BMI of 45.0-49.9, adult: Status: Acute Code(s): E66.01 - Morbid (severe) obesity due to excess calories; Z68.42 - Body mass index [BMI] 45.0-49.9, adult (7) DM2 (diabetes mellitus, type 2): Status: Chronic Code(s): E11.9 - Type 2 diabetes mellitus without complications Qualifiers: Diabetes mellitus complication status: with other specified complication Diabetes mellitus prison insulin use: with tank terminal gauger use Qualified Code(s): E11.69 - Type 2 diabetes mellitus with other specified complication; Z79.4 - assistant terminal manager (current) use of insulin Plan 73-year-old female being admitted for increasing left foot/heel pain for last 2 weeks. She had pins placed in her left foot approximately 15 years ago after she had fracture in the heel. She cannot bear weight 1. Severe left heel pain with history of left talar fracture about 15 years ago: CT of lower extremity reviewed and shows lateral calcaneal plate with screws are intact. No fracture identified. No dislocation. 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 No osseous destruction but marked soft tissue subcutaneous swelling edema appears greater anterior medial and posteriorly. No definite deep fascial or muscular edema. No soft tissue gas. Will consult chip silo tender for further opinion. PT and OT and pain control. CRP and ESR elevated. 8: Yesterday evening patient has psychotic symptoms of hallucinations, disordered behavior, disorganized apparel, talking nonstop and hypomania. Crisis management were called and he discussed with her. Patient was pink slipped last night. Patient is medically stable. Patient was picked up at 9 AM. 2. Abnormal UA, unclear about UTI: Patient cannot give history about lower urinary tract symptoms as she is in hypomania state. UA shows LE 100 but nitrite negative, WBC more than 100 cells, RBC 10-25, squamous epithelial 0-5 cells. Bacteria 4+. Empirically on IV ceftriaxone. Prelim urine culture shows GNR 80,000?100,000 colonies 10/11: UTI ruled out but patient might have colonization. Patient is transferred to inpatient psych unit on recommended 2 more doses of IV ceftriaxone. 3 bipolar 1 disorder; in hypomania episode: Patient is talking nonstop, not directable, cannot answer question, circumstantial and tangential thoughts and behavioral disorder: Patient on Seroquel. Clonazepam added. As mentioned above Morbid Obesity; with a BMI of 49.2 kg/m2 this admisson - Weight loss recommended DM-2; of unknown control on dulaglutide weekly, empagliflozin daily, insulin glargine 40 units SQ twice daily and insulin lispro 3 times daily AC: Accu-Chek before meals and at bedtime with Humalog sliding scale coverage and hypoglycemia protocol. Glucose is 165, 159 acceptable range. Essential hypertension; on lisinopril - Resume lisinopril as before. BP elevated 149/89. Hyperlipidemia; on atorvastatin - Continue statin TSH 4.73 upper limit normal. B12 379. Folic acid normal. Chronic history of seizures; on lamotrigine - Current treatment to be resumed plus give as needed IV lorazepam for breakthrough seizure activity. Former tobacco abuse times ~45 years (quit ~2016) DVT prophylaxis - Enoxaparin 40 mg sq BID. Patient noted to have moderate thrombocytopenia of 106K present on admission with plan to discontinue this agent if platelet count drops below 100K. Patient was discharged to inpatient psych unit. Full code Microbiology Past 72 Hours 10/09/24 20:10 Urine, Clean Catch Urine Culture - Preliminary Gram negative jamaal Laboratory Results 10/09/24 18:55: WBC 6.8, RBC 4.67, Hgb 13.5, Hct 40.8, MCV 87.4, MCH 28.9, MCHC 33.1, RDW Std Deviation 51.0 H, RDW Coeff of Bebo 15.9 H, Plt Count 106 L, MPV 11.8, Immature Gran % (Auto) 0.400, Neut % (Auto) 72.1 H, Lymph % (Auto) 16.3 L, [place] % (Auto) 8.3, Eos % (Auto) 2.5, Baso % (Auto) 0.4, Absolute Neuts (auto) 4.9, Absolute Lymphs (auto) 1.11, Nucleated RBC % 0, ESR 49 H, Sodium 138, Potassium 4.5, Chloride 106, Carbon Dioxide 21.0, Anion Gap 11, BUN 23 H, Creatinine 0.88, Estim Creat Clear Calc 81.27, Est GFR (MDRD) Non-Af 70, BUN/Creatinine Ratio 26.6 H, Glucose 138 H, Hemoglobin A1c 7.2 H, Calcium 9.7, Magnesium 2.1, Total Bilirubin 0.67, AST 40 H, ALT 23, Alkaline Phosphatase 135 H, C-React Prot Ext Range 5.92 H, Total Protein 8.4, Albumin 3.8, Globulin 4.6 H , Albumin/Globulin Ratio 0.8 L, Vitamin B12 379, TSH 4.730 H, Ethyl Alcohol < 10.1 10/09/24 20:10: Urine Color Yellow, Urine Clarity Cloudy, Urine pH 5.0, Ur Specific [place] 1.020, Urine Protein 30 H, Urine Glucose (UA) 1000 H, Urine Ketones Negative, Urine Occult Blood 150 H, Urine Nitrite Negative, Urine Bilirubin Negative, Urine Urobilinogen 1 H, Ur Leukocyte Esterase 100 H, Urine RBC 10-25 SEEN, Urine WBC >100 SEEN, Ur Squamous Epith Cells 0-5 SEEN, Ur Transition Epith Cell 0-5 SEEN, Amorphous Sediment 1+, Urine Bacteria 4+, Urine Mucus 0 SEEN, Urine Opiates Screen NEGATIVE, U Buprenorphine Qual NEGATIVE, Ur Oxycodone Screen NEGATIVE, Urine Methadone Screen NEGATIVE, Urine Fentanyl Screen NEGATIVE, Ur Barbiturates Screen NEGATIVE, Ur Phencyclidine Scrn NEGATIVE, Ur Amphetamines Screen NEGATIVE, U Benzodiazepines Scrn NEGATIVE, Urine Cocaine Screen NEGATIVE, U Cannabinoids Screen NEGATIVE 10/09/24 23:50: POC Glucose 148 H 10/10/24 05:21: WBC 5.3, RBC 4.27, Hgb 12.3, Hct 37.6, MCV 88.1, MCH 28.8, MCHC 32.7, RDW Std Deviation 51.4 H, RDW Coeff of [place]ebo 15.9 H, Plt Count 100 L, MPV 11.7, Immature Gran % (Auto) 0.200, Neut % (Auto) 65.4, Lymph % (Auto) 19.6, [place] % (Auto) 9.1, Eos % (Auto) 5.1 H, Baso % (Auto) 0.6, Absolute Neuts (auto) 3.4, Absolute Lymphs (auto) 1.03, Nucleated RBC % 0, Sodium Cancelled 10/10/24 05:21: Sodium 138, Potassium Cancelled 10/10/24 05:21: Potassium 4.3, Chloride Cancelled 10/10/24 05:21: Chloride 106, Carbon Dioxide Cancelled 10/10/24 05:21: Carbon Dioxide 19.0 L, Anion Gap Cancelled 10/10/24 05:21: Anion Gap 13, BUN Cancelled 10/10/24 05:21: BUN 20 H, Creatinine Cancelled 10/10/24 05:21: Creatinine 0.78, Estim Creat Clear Calc 88.83, Est GFR (MDRD) Non-Af Cancelled 10/10/24 05:21: Est GFR (MDRD) Non-Af 81, BUN/Creatinine Ratio Cancelled 10/10/24 05:21: BUN/Creatinine Ratio 25.4 H, Glucose Cancelled 10/10/24 05:21: Glucose 151 H, Calcium Cancelled 10/10/24 05:21: Calcium 8.9, Phosphorus 3.3, Total Bilirubin Cancelled 10/10/24 05:21: Total Bilirubin 0.68, AST Cancelled 10/10/24 05:21: AST 37 H, ALT Cancelled 10/10/24 05:21: ALT 23, Alkaline Phosphatase Cancelled 10/10/24 05:21: Alkaline Phosphatase 122 H, Total Protein Cancelled 10/10/24 05:21: Total Protein 7.2, Albumin Cancelled 10/10/24 05:21: Albumin 3.5, Globulin Cancelled 10/10/24 05:21: Globulin 3.7, Albumin/Globulin Ratio Cancelled 10/10/24 05:21: Albumin/Globulin Ratio 1.0, Triglycerides 82, Cholesterol 103, LDL Cholesterol, Calc 31, VLDL Cholesterol 16, HDL Cholesterol 56, Cholesterol/HDL Ratio 1.84, Serum Folate 7.20 10/10/24 05:45: POC Glucose 159 H 10/10/24 11:56: POC Glucose 165 H Medications at Discharge Home Medications lactobacillus combination no.9 4 billion cell capsule (Adult 50 Plus Probiotic) 4,000 mmu cells PO DAILY 06/25/20 acetaminophen 325 mg tablet (Tylenol) 650 mg PO Q4H PRN PRN Pain, fever 07/30/21 guaifenesin 100 mg/5 mL oral liquid 200 mg PO Q4H PRN cough 07/30/21 ergocalciferol (vitamin D2) 1,250 mcg (50,000 unit) capsule 50,000 unit PO Q14D suuplement 09/20/21 triamcinolone acetonide 0.1 % topical cream 1 applic topical Q12H PRN PRN Rash 09/20/21 insulin lispro 100 unit/mL subcutaneous pen (Humalog KwikPen (U-100) Insulin) See Protocol subcut TIDAC diabetes 11/22/21 lamotrigine 100 mg tablet 100 mg PO DAILY seizures 11/22/21 lisinopril 5 mg tablet 5 mg PO QDAY BP 11/22/21 miconazole nitrate 2 % topical powder 1 applic topical BID Check with primary doctor 11/22/21 blood sugar diagnostic (FreeStyle Lite Strips) 11/23/21 blood-glucose meter (FreeStyle Lite Meter kit) 11/23/21 lancets 28 gauge (FreeStyle Lancets) 11/23/21 nystatin 100,000 unit/gram topical powder ([facility]) 1 applic topical TID #0 grams 11/24/21 quetiapine 100 mg tablet 300 mg (3 x 100 mg) PO BID #0 tabs 11/24/21 aspirin 81 mg chewable tablet 81 mg PO DAILY 05/06/22 empagliflozin 10 mg tablet (Jardiance) 10 mg PO DAILY 08/17/22 atorvastatin 40 mg tablet 40 mg PO QPM 11/24/22 dulaglutide 3 mg/0.5 mL subcutaneous pen injector (Trulicity) 3 mg subcut QWEEK 11/24/22 clonazepam 0.5 mg tablet 0.5 mg PO Q12H panic attack(s) 10/09/24 insulin glargine 100 unit/mL (3 mL) subcutaneous pen (Lantus Solostar U-100 Insulin) 40 unit subcut BID 10/09/24 Physical Exam Narrative Seen and examined. The morning patient is still was talking nonstop, flight of ideas, circumstantial way of conversation, changing topics. As per nursing staff she has been talking for last 4 days, sleeping less, hypomania condition. She is not directable and does not reply to the ask questions. Physical exam General: Alert, unclear about the orientation. HEENT: Atraumatic, PERRLA, EOMI, Normocephalic. Oral: No Gingival or Mucosal Lesions/ Ulcerations Neck: Supple, No JVD, Negative Carotid Bruits Chest wall/Lungs: Air entry diminished in bilateral lung bases. No crepitation/rhonchi Cardiovascular: Regular rate and rhythm, Normal S1,S2, No M/G/R Abdomen: Bowel Sounds Present, Soft, Non Tender, Non-Distended : No dysuria. No renal angle tenderness. No suprapubic tenderness. Extremities: Bilateral lower extremity with lymphedema, chronic capillary Refill Less than 3 Seconds Skin: Purulent stain on the sheet probably from left leg. Intertriginous dermatitis/candidiasis Musculoskeletal: No Tenderness to Palpation of Joints or Extremities Neurological: Cranial nerves II-XII grossly intact, DTR 2+/4. No acute focal neurological deficit. Psych/Mental Status: Hypomania and behavior, talking nonstop. Does not follow command. Circumstantial ideas and thoughts Weight / BMI Weight Weight: 298 lb 1.039 oz Body Mass Index (BMI) 49.6 ABG / Lab / Microbiology Data 10/11/24 05:38 10/11/24 05:38 Laboratory: Laboratory Results - last 24 hr 10/10/24 11:56: POC Glucose 165 H 10/10/24 17:16: POC Glucose 196 H 10/10/24 22:37: POC Glucose 159 H 10/11/24 05:38: WBC 4.5, RBC 3.92 L, Hgb 11.3 L, Hct 34.0 L, MCV 86.7, MCH 28.8, MCHC 33.2, RDW Std Deviation 50.8 H, RDW Coeff of Bebo 16.0 H, Plt Count 95 L, MPV 11.1, Immature Gran % (Auto) 0.200, Neut % (Auto) 57.4, Lymph % (Auto) 26.8, [place] % (Auto) 9.8, Eos % (Auto) 5.1 H, Baso % (Auto) 0.7, Absolute Neuts (auto) 2.6, Absolute Lymphs (auto) 1.20, Nucleated RBC % 0, Platelet Estimate SLT DEC, Sodium 139, Potassium 3.9, Chloride 108, Carbon Dioxide 20.7 L, Anion Gap 10, B UN 21 H, Creatinine 0.76, Estim Creat Clear Calc 89.89, Est GFR (MDRD) Non-Af 84, BUN/Creatinine Ratio 28.3 H, Glucose 131 H, Calcium 9.2, Phosphorus 3.7, Magnesium 2.1 10/11/24 06:40: POC Glucose 137 H Microbiology: Microbiology 10/09/24 20:10 Urine, Clean Catch Urine Culture - Preliminary Escherichia coli GNR 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 * Patients 75 years or YOUNGER should receive HIGH intensity statin dose unless contraindicated. You will be required to document reason for non-treatment if statin daily dose does not meet guidelines. HIGH DOSE STATIN THERAPY DAILY Atorvastatin > than or = to 40 mg Rosuvastatin > than or = to 20 mg Amlodipine + Atorvastatin > than or = to 2.5/40 mg Ezetimibe + Simvastatin 10/80 mg Simvastatin 80mg Discharge Plan Admission Admit Date/Time: 10/09/24 21:56 Attending Provider: Tyrell Page Primary Care Provider: Shayna Malhotra Consulting Providers: Missael Hernandez Discharge Orders/Prescriptions Prescriptions: No Action Adult 50 Plus Probiotic 4 billion cell capsule 4,000 mmu cells PO DAILY Rx Instructions: administer with a meal guaifenesin 100 mg/5 mL liquid 200 mg PO Q4H PRN (Reason: cough) acetaminophen [Tylenol] 325 mg tablet 650 mg PO Q4H PRN PRN (Reason: Pain, fever) aspirin 81 mg tablet,chewable 81 mg PO DAILY Trulicity 3 mg/0.5 mL pen injector 3 mg subcut QWEEK Rx Instructions: on Fridays atorvastatin 40 mg tablet 40 mg PO QPM ergocalciferol (vitamin D2) 1,250 mcg (50,000 unit) Capsule 50,000 unit PO Q14D Rx Instructions: Take every 2 weeks on Mondays triamcinolone acetonide 0.1 % Cream 1 applic TOPICAL Q12H PRN PRN (Reason: Rash) Rx Instructions: lower leg miconazole nitrate 2 % powder 1 applic TOPICAL BID lisinopril 5 mg tablet 5 mg PO QDAY lamotrigine 100 MG tablet 100 mg PO DAILY insulin lispro [Humalog KwikPen Insulin] 100 unit/mL insulin pen See Protocol subcut TIDAC Protocol: 3. Sliding Scale Insulin Med Dosing Condition: 150-189 mg/dl = 1 unit Condition: 190-229 mg/dl = 2 units Condition: 230-269 mg/dl = 3 units Condition: 270-309 mg/dl = 4 units Condition: 310-349 mg/dl = 5 units Condition: 350-399 mg/dl = 6 units Condition: 400-449 mg/dl = 7 units Condition: Greater than 449 call physician Protocol Text: - Use for Total Daily Dose of Insulin 37-55 units - Obsese, infected, or steroid patients MEDIUM DOSING ALGORITHIM Rx Instructions: sliding scale (DME) FreeStyle Lite Strips Strip See Rx Instructions MISCELLANEOUS Rx Instructions: check blood glucose daily for type 2 DM (DME) blood-glucose meter [FreeStyle Lite Meter] Kit See Rx Instructions MISCELLANEOUS Rx Instructions: As directed, check blood glucose daily for type 2 DM (DME) lancets [FreeStyle Lancets] 28 gauge misc See Rx Instructions MISCELLANEOUS Rx Instructions: check blood glucose daily for type 2 DM quetiapine 100 mg Tablet 300 mg PO BID Qty: 0 0RF nystatin [Nyamyc] 100,000 unit/gram Powder 1 applic topical TID Qty: 0 0RF clonazepam 0.5 mg tablet 0.5 mg PO Q12H insulin glargine [Lantus Solostar U-100 Insulin] 100 unit/mL (3 mL) insulin pen 40 unit subcut BID Jardiance 10 mg tablet 10 mg PO DAILY Referrals / Follow Up: Shayna Malhotra MD [Primary Care Provider] - Disposition Disposition (needs filled in before D/C Order can be placed): Acute Care Hospital Charges/Coding Visit Charges Inpatient E&M: 20122 Disch Hosp >30min
== END 2024-10-11 09:36 | disposition short-term general hospital (02) | DRG 690 ==
LOC: ED 21:27 → MS3 22:13
PROVIDERS: Admitting Provider Internal Medicine; Emergency Provider Emergency Medicine; PCP Internal Medicine; Visit Provider Internal Medicine
DX: N30.01 Acute cystitis with hematuria (principal); Z68.42 Body mass index [BMI] 45.0-49.9, adult; E11.42 Type 2 diabetes mellitus with diabetic polyneuropathy; I10 Essential (primary) hypertension; E66.01 Morbid (severe) obesity due to excess calories; Z79.4 Long term (current) use of insulin; E78.5 Hyperlipidemia, unspecified; M79.672 Pain in left foot; R44.1 Visual hallucinations; M79.2 Neuralgia and neuritis, unspecified; M19.072 Primary osteoarthritis, left ankle and foot; Z83.3 Family history of diabetes mellitus; Z79.84 Long term (current) use of oral hypoglycemic drugs; Z86.718 Personal history of other venous thrombosis and embolism; R53.81 Other malaise; Z79.85 Long-term (current) use of injectable non-insulin antidiabetic drugs; Z87.891 Personal history of nicotine dependence; F41.0 Panic disorder [episodic paroxysmal anxiety]; Z79.82 Long term (current) use of aspirin; Z79.899 Other long term (current) drug therapy; Z78.9 Other specified health status; Z98.890 Other specified postprocedural states
CPT/HCPCS: 36415; 73630; 73700; 80048; 80053; 80061; 80307; 81001; 82077; 82607; 82746; 82962; 83036; 83735; 84100; 84443; 85025; 85652; 86140; 87077; 87086; 87088; 87186; 93005; 94668; 97162; 97166; 97802; 99285; A4216; J3420

== ENCOUNTER → 2024-10-09 | Outpatient (REF) | payer MEDICARE, MEDICAID, SELFPAY ==
[2024-10-09 08:58] LABS: Absolute Lymphocyte Count 0.97 X10^3/uL (0.83-4.51); Absolute Neutrophil Count 4.4 X10^3/uL (2.0-7.7); Basophil# 0.03 X10^3/uL; Basophil% 0.5 % (0-1); Eosinophil# 0.07 X10^3/uL; Eosinophils% 1.2 % (0-5); Hematocrit 40.9 % (37-47); Hemoglobin 13.5 g/dL (12.0-15.0); Lymphocyte # 0.97 X10^3/ul (0.83-4.51); Lymphocyte % 16.1 % (19-41); Mean Corpuscular Hgb 28.8 pg (27.0-32.0); Mean Corpuscular Volume 87.4 fL (81-99); Mean Platelet Vol. 10.8 fl (6.2-12.0); Monocyte# 0.51 X10^3/uL; Monocyte% 8.4 % (0-10); NRBC Flagged by Analyzer 0 % (0-5); Neutrophil # 4.44 X10^3/uL (2.7-7.7); Neutrophil % 73.5 % (47-70); Platelet Count 107 K/mm3 (150-450); RBC Distribution Width CV 15.7 % (11.6-14.6); RBC Distribution Width SD 50.2 fl (35.1-43.9); Red Blood Count 4.68 M/mm3 (4.2-5.4)
[2024-10-09 09:27] LABS: Hemoglobin A1c 7.2 % (<=5.6)
[2024-10-09 09:31] LABS: ALB/GLOB Ratio 0.8 RATIO (0.9-2.4); AST(SGOT) 37 U/L (<=31); Alanine Aminotransfer ALT/SGPT 26 U/L (<=34); Alkaline Phosphatase 148 U/L (35-104); Anion Gap 12 (5-15); BUN 21 mg/dL (4-19); BUN/Creat Ratio 25.9 RATIO (10-20); Calcium,Total 9.6 mg/dL (7.6-11.0); Carbon Dioxide 22.6 mmol/L (21.0-32.0); Chloride 104 mmol/L (98-108); Creatinine, Serum 0.82 mg/dL (0.70-1.20); EST Glomerular Filtration Rate 76 (>60); Globulin 4.8 g/dL (2.2-4.2); Glucose 173 mg/dL (70-99); Potassium 4.2 mmol/L (3.3-5.1); Protein, Total 8.9 g/dL (5.9-8.4); Sodium Level 138 mmol/L (133-145); Total Bilirubin 0.62 mg/dL (0.00-1.30)
== END ==
LOC: OLS.SWAL 05:00
PROVIDERS: PCP Internal Medicine
DX: E11.9 Type 2 diabetes mellitus without complications (principal); E78.5 Hyperlipidemia, unspecified; E55.9 Vitamin D deficiency, unspecified
CPT/HCPCS: 36415; 80053; 82306; 83036; 85025

== ENCOUNTER → 2024-11-01 06:35 | Outpatient (REF) | payer MEDICARE, MEDICAID, SELFPAY ==
[2024-11-01 08:27] LABS: Uric Acid 5.6 mg/dL (2.6-6.0)
== END ==
LOC: OLS.SW 06:35
PROVIDERS: PCP Internal Medicine; Visit Provider Internal Medicine
DX: M62.81 Muscle weakness (generalized) (principal); M79.673 Pain in unspecified foot
CPT/HCPCS: 36415; 84550; 86140

== ENCOUNTER → 2024-11-07 05:00 | Outpatient (REF) | payer MEDICARE, MEDICAID, SELFPAY ==
--- OUTSIDE RECORDS SUMMARY | 2024-11-07 04:33 | XMS RPT_ITS | CCD ---
Author Organization [facility] Care Team Providers Care Jeweler Apprentice Name Role Phone Sena Cox NP Unavailable Johnny Richardson Unavailable Unavailable Unavailable Primary Care Provider Vonnie e Dr. Shayna Malhotra Primary Care Provider Dr. Shayna Malhotra Referring Provider [phone] Saad Villagomez Attending Provider Dr. Tyler Crespo Emergency Provider Dr. Alok Abdul Admit Provider Dr. Alok Abdul Attending Provider Dr. Alok Abdul Other Provider Dr. Tyrell Page Attending Provider Dr. Tyrell Page Other Provider Dr. Marjorie Gutiérrez Admit Provider Dr. Marjorie Gutiérrez Attending Provider Dr. Marjorie Gutiérrez Other Provider Dr. Harjeet Gr Attending Provider Dr. Shayna Malhotra Primary Care Provider Dr. Tanner Rodriguez Attending Provider Dr. Marjorie Gutiérrez Referring Provider Dr. Shayna Malhotra Primary Care Provider Dr. Shayna Malhotra Attending Provider Dr. Shayna Malhotra Primary Care Provider Dr. Shayna Malhotra Attending Provider Dr. Shayna Malhotra Primary Care Provider Dr. Shayna Malhotra Attending Provider Marya LEAL, Dr. Corral Primary Care Provider Marya LEAL, Dr. Corral Attending Provider Marya LEAL, Shayna Attending Provider Unavailabl e Marya LEAL, Shayna Referring Provider Unavailabl e Dylan LEAL, Dany Emergency Provider [phone] Hernandez DO, Dr. Canas Admit Provider Unavail able Hernandez DO, Dr. Canas Attending Provider Unav ailable Hernandez DO, Dr. Canas Other Provider Unavail able Camilo LEAL, Dr. Santillan Attending Provider Camilo LEAL, Dr. Santillan Other Provider [phone] Marya OLS, Shayna Attending Unavailable Marya, Shayna Primary Care Unavailable Marya, Shayna Primary Care Unavailable Gudla OLS, Malathi Attending Unavailable Marya, Shayna Primary Care Unavailable Gudla OLS, Malathi Attending Unavailable Marya OLS, Shayna Attending Unavailable Marya, Shayna Primary Care Unavailable Marya, Shayna Primary Care Unavailable Missael Hernandez Attending Unavailable Missael Hernandez Consulting Unavailable Missael Hernandez Admitting Unavailable Marya, Shayna Primary Care Unavailable Tyrell Page Referring Unavailable Lele, Shea Attending Unavailable Marya, Shayna Attending Unavailable Marya, Shayna Primary Care Unavailable Marya, Shayna Primary Care Unavailable Marya, Shayna Attending Unavailable Tyrell Page Attending Unavailable Tyrell Page Consulting Unavailable Marya OLS, Shayna Attending Unavailable Marya, Shayna Primary Care Unavailable Marya OLS, Shayna Referring Unavailable Marya OLS, Shayna Attending Unavailable Marya, Shayna Primary Care Unavailable Marya OLS, Shayna Referring Unavailable Marya, Shayna Attending Unavailable Marya, Shayna Primary Care Unavailable Shayna Sanchez Attending Unavailable Shayna Malhotra Primary Care Unavailable Shayna Malhotra Primary Care Unavailable Malathi Hyde Attending Unavailable Shayna Malhotra Primary Care Unavailable Missael Hernandez Consulting Unavailable Missael Hernandez Admitting Unavailable Tyrell Page Attending Unavailable Allergies Allergy Classification Reported Allergen(s) Allergy Type Date of Onset Reaction(s) Facility (20 sources) Ciprofloxacin Drug Allergy 08-12-19 06 Shortness of Breath, Anaphylaxis [facility] (20 sources) Contrast media; Translations: [red dye] Drug Allergy 02-10-20 16 [facility] (5 sources) Fish Drug Allergy 02-10-20 16 [facility] (20 sources) metFORMIN Drug Allergy 11-21-19 17 Diarrhea, GI Upset, Vomiting [facility] (20 sources) paliperidone Drug Allergy 11-21-19 17 Rash [facility] (14 sources) Penicillins Drug Allergy 07-15-19 06 [facility] (20 sources) Shellfish; Translations: [shellfish derived] Drug Intolerance 02-29-20 19 Diarrhea, Vomiting [facility] (15 sources) Sulfonamides (Antibiotic) Drug Allergy 07-15-19 06 Rash [facility] (15 sources) Iodinated Contrast Media Drug Allergy 02-29-20 19 Rash [facility] (4 sources) Mold Extract Drug Allergy 09-08-19 22 [facility] (19 sources) Ciprofloxacin; Translations: [ciprofloxacin HCl] Drug Allergy 08-12-19 22 Anaphylaxis [facility] (18 sources) red (food color); Translations: [red (food color)] Allergy to substance 09-21-19 [facility] (1 source) Penicillins Drug Allergy 07-15-19 06 [facility] (8 sources) Penicillins Allergy to substance 11-23-19 RASH AND ITCHING [facility] (8 sources) Sulfonamides (Antibiotic) Allergy to substance 11-23-19 RASH AND ITCHING [facility] (8 sources) Triiodobenzoic Acids Allergy to substance 11-23-19 Rash [facility] (1 source) Ciprofloxacin Drug Allergy 10-10-19 [facility] (1 source) metFORMIN Drug Allergy 10-10-19 [facility] (1 source) paliperidone Drug Allergy 10-10-19 [facility] (1 source) Penicillins Drug allergy (disorder) 10-10-19 [facility] (1 source) Sulfonamides (Antibiotic) Drug allergy (disorder) 10-10-19 [facility] (1 source) Iodinated Contrast Media Drug allergy (disorder) 10-10-19 [facility] Medications Current Medications Medication Drug Class(es) Dates Sig (Normalized) Sig (Original) acetaminophen 325 mg oral tablet (20 sources) Start: 09-07-2021 End: 09-21-2021 take 2 tablets by mouth every six hours acetaminophen (TYLENOL) 325 mg tablet Take 2 tablets by mouth every 6 hours for 14 days. 112 tablet 0 09/07/2021 09/21/2021 Active Start: 07-30-2021 [facility] every four hours as needed Acetaminophen (Tylenol) 325 mg tablet Active 325 MG PO EVERY 4 HOURS NEEDED July 30, 2021 4:00pm Start: 07-30-2021 take 1 tablet by mouth once Ac etaminophen (Tylenol) 325 mg tablet Active 325 MG PO ONCE July 30, 2021 4:00pm Start: 07-30-2021 take 2 tablets by mo [facility] every four hours as needed for pain Acetaminophen (Tylenol) 325 mg tablet Active 650 mg PO EVERY 4 HOURS NEEDED as needed for Pain, fever July 30, 2021 1:00am Comment on above: Take 650 mg by mouth every 4 hours as needed. Take 2 tablets by mo ut every 6 hours for 14 days. aspirin 81 mg chewable tablet (7 sources) Platelet Aggregation Inhibitor, Nonsteroidal Anti-inflammatory Drug Start: 05-06-20 22 take 1 tablet by mouth once daily Aspirin 81 mg tablet,chewable Active 81 mg PO DAILY May 06, 2022 1:00am atorvastatin 40 mg oral tablet (20 sources) HMG-CoA Reductase Inhibitor Start: 11-25-19 23 take 1 tablet by mouth once daily in the evening Atorvastatin 40 mg tablet Active 40 mg PO EVERY EVENING November 24, 2022 12:00am Start: 08-31-2017 End: 11-24-2021 take 1 tablet by mouth at bedtime Atorvastatin 40 mg tablet Discontinued 40 mg PO AT BEDTIME September 20, 2021 8:43am November 24, 2021 12:12pm Comment on above: Take 40 mg by mouth daily at bedtime. Blood-Glucose Meter (Freestyle Lite Meter) kit (20 sources) Start: 11-23-2021 Blood-Glucose Meter (Freestyle Lite Meter) kit Active 0 November 23, 2021 7:53am As directed, check blood glucose daily for type 2 DM Start: 11-23-2021 Blood-Glucose Meter (Freestyle Lite Meter) kit Active 0 November 23, 2021 8:53am As directed, check blood glucose daily for type 2 DM Start: 03-01-2019 Blood-Glucose Meter (Freestyle Lite Meter) kit Active 0 .ROUTE .MEDSUPPLY March 01, 2019 2:00pm As directed, check blood glucose daily for type 2 DM Start: 03-01-2019 End: 11-23-2021 Blood-Glucose Meter (Freesty le Lite Meter) kit Discontinued 0 .ROUTE .MEDSUPPLY February 28, 2019 11:00pm November 23, 2021 7:53am As directed, check blood glucose daily for type 2 DM Start: 03-01-2019 End: 11-23-2021 Blood-Glucose Meter (Freesty le Lite Meter) kit Discontinued 0 .ROUTE .MEDSUPPLY March 01, 2019 12:00am November 23, 2021 8:53am As directed, check blood glucose daily for type 2 DM Start: 03-01-2019 Blood-Glucose Meter (Freestyle Lite Meter) kit Active 0 .ROUTE .MEDSUPPLY March 01, 2019 12:00am As directed, check blood glucose daily for type 2 DM Start: 09-14-2017 Blood-Glucose Meter (Freestyle Lite Meter) kit Active 0 .ROUTE .MEDSUPPLY September 14, 2017 9:28am use to check BG 4-5 x qd Start: 09-14-2017 End: 09-14-2017 Blood-Glucose Meter (Freesty le Lite Meter) kit Discontinued 0 .ROUTE .MEDSUPPLY September 14, 2017 8:21am September 14, 2017 9:29am use to check BG 4-5 x qd Start: 09-14-2017 End: 09-14-2017 Blood-Glucose Meter (Freesty le Lite Meter) kit Discontinued 0 .ROUTE .MEDSUPPLY 1 September 13, 2017 11:00pm September 14, 2017 8:29am use to check BG 4-5 x qd Start: 09-14-2017 End: 09-14-2017 Blood-Glucose Meter (Freesty le Lite Meter) kit Discontinued 0 .ROUTE .MEDSUPPLY 1 September 14, 2017 12:00am September 14, 2017 9:29am use to check BG 4-5 x qd Dulaglutide (20 sources) GLP-1 Receptor Agonist Start: 11-24-2022 Dulaglu tide (Trulicity) 3 mg/0.5 mL pen injector Active 3 mg SC EVERY WEEK November 24, 2022 12:00am on Fridays Start: 11-24-2022 Dulaglutide (T rulicity) 3 mg/0.5 mL pen injector Active 3 MG SC EVERY WEEK November 23, 2022 11:00pm Start: 11-24-2022 Dulaglutide (T rulicity) 3 mg/0.5 mL pen injector Active 3 MG SC EVERY WEEK November 24, 2022 12:00am Start: 03-21-2020 End: 11-24-2022 Dulaglutide (Trulicity) 1.5 mg/0.5 mL pen injector Discontinued 1.5 mg SC EVERY WEEK November 22, 2021 6:35pm November 24, 2022 1:26pm Every Tuesday Comment on above: Inject 1.5 mg subcut aneously one time a week. empagliflozin 10 mg oral tablet (5 sources) Sodium-Glucose Cotransporter 2 Inhibitor Start: 023 take 1 tablet by mouth once daily Empagliflozin (Jardiance) 10 mg tablet Active 10 mg PO DAILY August 17, 2022 12:00am ergocalciferol 1.25 mg oral capsule (20 sources) Provitamin D2 Compound Start: 022 Ergocalciferol (Vitamin D2) 1,250 mcg (50,000 unit) Capsule Active 74805 U PO Q14D September 20, 2021 12:00am Take every 2 weeks on Mondays Start: 09-20-2021 take 88878 [IU] by m outh every other week Ergocalciferol (Vitamin D2) Active 89533 UNIT PO Q14D September 19, 2021 11:00pm Take every 2 weeks on Mondays Start: 09-08-2017 End: 03-21-2020 Ergocalciferol (Vitamin D2) 50,000 unit capsule Discontinued 95469 U PO EVERY MONTH September 08, 2017 12:00am March 21, 2020 2:54pm Start: 11-15-2014 End: 09-01-2021 take 1 capsule by mouth every week ergocalciferol, vitamin D2, (VITAMIN D) 50,000 unit capsule Take 1 capsule by mouth once each week. 4 capsule 12 11/15/2014 09/01/2021 Discontinued Comment on above: Take 1 capsule by mo [facility] once each week. glucose 0.4 mg/mg oral gel (11 sources) Start: 06-25-2020 Dextrose (Glucose Gel) 40 % gel Active 10 GM PO Q15M June 25, 2020 2:20pm until symptoms of low blood sugar are controlled dextrose (GLUCOS E GEL ORAL) Take by mouth. 0 Active Comment on above: Take by mouth. guaiFENesin 20 mg/ml oral solution (19 sources) Start: 2 take 200 mg by mouth every four hours as needed for cough Guaifenesin 100 mg/5 mL liquid Active 200 mg PO Q4H as needed for cough July 30, 2021 1:00am Comment on above: Take 200 mg by mouth every 4 hours as needed. ibuprofen 600 mg oral tablet (3 sources) Nonsteroidal Anti-inflammatory Drug Start: 2 End: 2 take 1 tablet by mouth every six hours ibuprofen (MOTRIN) 600 mg tablet Take 1 tablet by mouth every 6 hours for 14 days. 56 tablet 0 09/07/2021 09/21/2021 Active Comment on above: Take 1 tablet by [facility] every 6 hours for 14 days. 3 ml insulin glargine 100 unt/ml pen injector (20 sources) Insulin Analogue Start: 5 Insulin Glargine (Lantus Solostar U-100 Insulin) 100 unit/mL (3 mL) insulin pen Active 40 U SC TWICE A DAY October 09, 2024 12:00am Start: 03-21-2020 End: 11-24-2021 Insulin Glargine (Lantus Anastasiia ostar U-100 Insulin) 100 unit/mL (3 mL) insulin pen Discontinued 65 U SC AT BEDTIME November 22, 2021 6:35pm November 24, 2021 10:49am Hold if glucose less than 130 mg/dl Start: 09-12-2017 End: 03-21-2020 Insulin Glargine (Lantus Anastasiia ostar U-100 Insulin) 100 unit/mL (3 mL) insulin pen Discontinued 18 U SC AT BEDTIME September 12, 2017 1:53pm March 21, 2020 2:57pm Start: 08-23-2017 End: 09-12-2017 Insulin Glargine U-300 Conc 300 UNIT/ML insulin pen Discontinued 20 U SC AT BEDTIME August 23, 2017 10:57am September 12, 2017 1:31pm Start: 10-28-2016 End: 08-23-2017 inject 18 [IU] by subcutaneous injection at bedtime Insulin Glargine U-300 Conc 300 UNIT/ML insulin pen Discontinued 18 U SQ AT BEDTIME October 28, 2016 12:00am August 23, 2017 10:59am Start: 08-25-2016 End: 08-26-2016 inject 15 [IU] by subcutaneous injection at bedtime Insulin Glargine U-300 Conc (Toujeo Solostar) 300 UNIT/ML Ml Discontinued 15 U SQ AT BEDTIME August 25, 2016 12:00am August 26, 2016 9:59am insulin glargine (LANTUS SOLOSTAR U-100 INSULIN) 100 unit/mL (3 mL) Inject 65 Units subcutaneously daily at bedtime. 0 Active TOUJEO SOLOSTAR 300 UNIT/ML SOPN Use 18 units daily. INSULIN GLARGINE [id number] Sena Cox NP Comment on above: Inject 65 Units subc utaneously daily at bedtime. 3 ml insulin lispro 100 unt/ml pen injector (20 sources) Insulin Analog Start: 09-22-2021 Insulin Lispro (Humalog Kwikpen Insulin) 100 unit/mL insulin pen Active 16 UNIT SC THREE TIMES A DAY 0 September 22, 2021 9:07am with meals Hold if glucose less than 130 mg/dl Start: 09-22-2021 End: 11-22-2021 Insulin Lispro (Humalog Kwik pen Insulin) 100 unit/mL insulin pen Active 0 U SC THREE TIMES DAILY BEFORE MEALS November 22, 2021 6:35pm sliding scale Please contact the information source for Protocol details. Start: 09-22-2021 End: 11-22-2021 Insulin Lispro (Humalog Kwik pen Insulin) 100 unit/mL insulin pen Active 0 UNIT SC THREE TIMES DAILY BEFORE MEALS November 22, 2021 5:35pm sliding scale Start: 06-25-2020 End: 09-22-2021 Insulin Lispro (Humalog Kwik pen Insulin) 100 unit/mL insulin pen Discontinued 14 U SC THREE TIMES A DAY June 25, 2020 2:21pm September 22, 2021 9:07am with meals Start: 06-15-2019 End: 06-25-2020 Insulin Lispro (Humalog Kwik pen Insulin) 100 unit/mL insulin pen Discontinued 12 U SC THREE TIMES A DAY June 15, 2019 1:00am June 25, 2020 2:22pm insulin lispro ( HUMALOG) 100 unit/mL injection Inject subcutaneously three times daily before meals. 0 Active Comment on above: Inject subcutaneousl y three times daily before meals. Lactobacillus Combination No.9 (Adult 50 Plus Probiotic) 4 billion cell capsule (18 sources) Start: take 4 capsules by mouth once daily Lactobacillus Combination No.9 (Adult 50 Plus Probiotic) 4 billion cell capsule Active 4000 MMU CELLS PO DAILY June 25, 2020 2:19pm administer with a meal Start: 06-25-2020 take 4 capsules by m outh once daily Lactobacillus Combination No.9 (Adult 50 Plus Probiotic) 4 billion cell capsule Active 4000 NMA PO DAILY June 25, 2020 1:00am administer with a meal Start: 06-25-2020 take 4 capsules by m outh once daily Lactobacillus Combination No.9 (Adult 50 Plus Probiotic) 4 billion cell capsule Active 4000 MMU CELLS PO DAILY June 25, 2020 12:00am administer with a meal Start: 06-25-2020 take 4 capsules by m outh once daily Lactobacillus Combination No.9 (Adult 50 Plus Probiotic) 4 billion cell capsule Active 4000 MMU CELLS PO DAILY June 25, 2020 1:00am administer with a meal lisinopril 5 mg oral tablet (20 sources) Angiotensin Converting Enzyme Inhibitor Start: 09-08-2017 End: 11-22-2021 take 1 tablet by mouth once daily Lisinopril 5 mg tablet Active 5 mg PO daily November 22, 2021 6:35pm Start: 08-04-2017 End: 08-23-2017 take 1 tablet by mouth once daily Lisinopril 10 MG tablet Discontinued 10 mg PO DAILY August 04, 2017 1:00am August 23, 2017 10:26am Comment on above: Take 5 mg by mouth o nce daily. nitrofurantoin, macrocrystals 25 mg / nitrofurantoin, monohydrate 75 mg oral capsule (2 sources) Nitrofuran Antibacterial Start: End: take 1 capsule by mouth twice daily at mealtime nitrofurantoin monohydrate and macrocrystal (MACROBID) 100 mg capsule Take 1 capsule by mouth twice daily with meals for 10 doses. 10 capsule 0 09/08/2021 09/13/2021 Active Comment on above: Take 1 capsule by mo uth twice daily with meals for 10 doses. QUEtiapine 100 mg oral tablet (20 sources) Atypical Antipsychotic Start: take 3 tablets by mouth twice daily Quetiapine 100 mg Tablet Active 300 mg PO TWICE A DAY 0 November 24, 2021 12:00am Start: 11-24-2021 take 300 mg by mouth twice daily Quetiapine Active 300 MG PO TWICE A DAY 0 November 23, 2021 11:00pm Start: 11-22-2021 End: 11-24-2021 take 1 tablet by mouth at bedtime Quetiapine Fumarate (Seroquel Xr) 300 MG Tab.Sr.24h Discontinued 600 mg PO AT BEDTIME November 22, 2021 6:35pm November 24, 2021 10:49am Start: 11-22-2021 End: 11-24-2021 take 1 tablet by mouth at bedtime Quetiapine Fumarate (Seroquel Xr) 300 MG Tab.Sr.24h Discontinued 600 MG PO AT BEDTIME November 22, 2021 5:35pm November 24, 2021 9:49am Start: 11-22-2021 End: 11-24-2021 take 1 tablet by mouth at bedtime Quetiapine Fumarate (Seroquel Xr) 300 MG Tab.Sr.24h Discontinued 600 MG PO AT BEDTIME November 22, 2021 6:35pm November 24, 2021 10:49am Start: 02-28-2019 take 1 tablet by lucio th at bedtime Quetiapine Fumarate (Seroquel Xr) 300 MG Tab.Sr.24h Active 600 MG PO AT BEDTIME 60 February 28, 2019 8:54pm Start: 02-28-2019 End: 11-22-2021 take 1 tablet by mouth at bedtime Quetiapine Fumarate (Seroquel Xr) 300 MG Tab.Sr.24h Discontinued 600 mg PO AT BEDTIME 60 February 28, 2019 12:00am November 22, 2021 6:36pm Start: 02-28-2019 End: 11-22-2021 take 1 tablet by mouth at bedtime Quetiapine Fumarate (Seroquel Xr) 300 MG Tab.Sr.24h Discontinued 600 MG PO AT BEDTIME 60 February 27, 2019 11:00pm November 22, 2021 5:36pm Start: 02-28-2019 End: 11-22-2021 take 1 tablet by mouth at bedtime Quetiapine Fumarate (Seroquel Xr) 300 MG Tab.Sr.24h Discontinued 600 MG PO AT BEDTIME 60 February 28, 2019 12:00am November 22, 2021 6:36pm Start: 02-28-2019 take 1 tablet by lucio th at bedtime Quetiapine Fumarate (Seroquel Xr) 300 MG Tab.Sr.24h Active 600 MG PO AT BEDTIME 60 February 28, 2019 12:00am Start: 08-25-2016 End: 08-25-2016 take 1 tablet by mouth twice daily Quetiapine (Seroquel) 300 MG tablet Discontinued 300 mg PO TWICE A DAY 0 August 25, 2016 8:45am August 25, 2016 8:48am Start: 08-22-2016 End: 08-25-2016 take 2 tablets by mouth at bedtime Quetiapine (Seroquel) 300 MG tablet Discontinued 600 mg PO AT BEDTIME August 22, 2016 12:00am August 25, 2016 8:45am Start: 02-10-2016 take 2 tablets by mo uth once daily at bedtime QUEtiapine XR (SEROQUEL XR) 300 mg 24 hr tablet Take 2 tablets by mouth daily at bedtime. 60 tablet 0 02/10/2016 Active Comment on above: Take 2 tablets by mo uth daily at bedtime. triamcinolone acetonide 1 mg/ml topical cream (19 sources) Corticosteroid Start: 09-20-2021 Triamcinolone Acetonide 0.1 % Cream Active 1 NMA TOPICAL EVERY 12 HOURS NEEDED as needed for Rash September 20, 2021 12:00am lower leg Start: 07-30-2021 Triamcinolone Acetonide Active 1 APPLIC DENTAL TWICE A DAY July 30, 2021 4:01pm use after food and/or drink and/or oral hygiene Start: 07-30-2021 End: 09-01-2021 triamcinolone (KENALOG IN OR ABASE) 0.1 % paste Take by mouth. 0 07/30/2021 09/01/2021 Discontinued Comment on above: Take by mouth. Completed/Discontinued Medications Medication Drug Class(es) Dates Sig (Normalized) Sig (Original) Aluminum-Magnesium Hydroxide (16 sources) Start: 07-30-2021 End: 09-22-2021 take 1 mL by mouth every four hours as needed Aluminum-Magnesium Hydroxide Discontinued 30 ML PO EVERY 4 HOURS NEEDED July 30, 2021 4:02pm September 22, 2021 9:00am Start: 07-30-2021 take 1 mL by mouth e very four hours as needed Aluminum-Magnesium Hydroxide Active 30 ML PO EVERY 4 HOURS NEEDED July 30, 2021 4:02pm Start: 07-30-2021 End: 09-22-2021 take 1 mL by mouth every four hours as needed Aluminum-Magnesium Hydroxide Discontinued 30 ML PO EVERY 4 HOURS NEEDED July 30, 2021 12:00am September 22, 2021 8:00am Start: 07-30-2021 End: 09-22-2021 take 1 mL by mouth every four hours as needed Aluminum-Magnesium Hydroxide Discontinued 30 ML PO EVERY 4 HOURS NEEDED July 30, 2021 1:00am September 22, 2021 9:00am Aluminum-Magnesium Hydroxide 225-200 mg/5 mL suspension (2 sources) Start: 07-30-2021 End: 09-22-2021 take 1 mL by mouth every four hours as needed Aluminum-Magnesium Hydroxide 225-200 mg/5 mL suspension Discontinued 30 mL PO EVERY 4 HOURS NEEDED as needed for GI Distress July 30, 2021 1:00am September 22, 2021 9:00am apixaban 5 mg oral tablet (20 sources) Factor Xa Inhibitor Start: 11-24-2021 End: 11-24-2022 take 1 tablet by mouth twice daily Apixaban (Eliquis) 5 mg Tablet Discontinued 5 mg PO TWICE A DAY 0 November 24, 2021 12:00am November 24, 2022 1:25pm Start: 09-22-2021 End: 11-24-2021 take 2 tablets by mouth twice daily in the evening, then take 1 tablet by mouth twice daily Apixaban (Eliquis) 5 mg tablet Discontinued 5 mg PO TWICE A DAY November 22, 2021 1:31pm November 24, 2021 10:50am 10 mg twice daily, last dose 09/27/2021 pm dose and then start 5 mg twice daily to continue for 6 months Please contact the information source for Taper Schedule details. azithromycin 500 mg oral tablet (4 sources) Macrolide Antimicrobial Start: 01-09-2023 End: 05-28-2024 take 1 tablet by mouth once daily Azithromycin 500 mg tablet Discontinued 500 mg PO DAILY 5 January 09, 2023 12:00am May 28, 2024 4:20pm cefadroxil 1000 mg oral tablet (18 sources) Cephalosporin Antibacterial Start: 08-04-2017 End: 08-23-2017 take 1 tablet by mouth once daily Cefadroxil 1 GM tablet Discontinued 1 g PO DAILY August 04, 2017 1:00am August 23, 2017 10:26am cefdinir 300 mg oral capsule (11 sources) Cephalosporin Antibacterial Start: 11-24-2021 End: 11-24-2022 take 1 capsule by mouth twice daily Cefdinir 300 mg capsule Discontinued 300 mg PO TWICE A DAY 10 November 24, 2021 12:00am November 24, 2022 1:25pm cephalexin 500 mg oral capsule (18 sources) Cephalosporin Antibacterial Start: 02-28-2019 End: 03-21-2020 take 1 capsule by mouth every six hours Cephalexin 500 MG capsule Discontinued 500 mg PO EVERY 6 HOURS 40 February 28, 2019 12:00am March 21, 2020 2:53pm cholecalciferol 1.25 mg oral capsule (7 sources) Vitamin D Start: 02-12-2015 End: 09-01-2021 take 1 capsule by mouth every week cholecalciferol, Vitamin D3, (VITAMIN D3) 50,000 unit cap capsule Indications: Vitamin D deficiency Take 1 capsule by mouth once each week. 6 capsule 1 02/12/2016 Active Start: 12-30-2014 End: 09-01-2021 take 1 capsule by mouth two times weekly cholecalciferol, Vitamin D3, (VITAMIN D3) 50,000 unit cap capsule Take 1 capsule by mouth twice a week. (ONE CAPSULE) FOR VITAMIN D DEFICIENCY 24 capsule 0 12/30/2014 09/01/2021 Discontinued Comment on above: Take 1 capsule by [facility] once each week. Take 1 capsule by [facility] twice a week. (ONE CAPSULE) FOR VITAMIN D DEFICIENCY Take 1 capsule by [facility] once each week. (ONE CAPSULE) FOR VITAMIN D DEFICIENCY clonazePAM 0.5 mg oral tablet (20 sources) Benzodiazepine Start: 3 End: 5 take 1 tablet by mouth every twelve hours as needed Clonazepam 0.5 mg tablet Discontinued 0.5 mg PO Q12H as needed for panic attack(s) 60 September 12, 2024 7:52am October 09, 2024 8:13pm Start: 02-28-2019 End: 11-08-2022 take 1 tablet by mouth every eight hours as needed Clonazepam 0.5 mg tablet Discontinued 0.5 mg PO EVERY 8 HOURS NEEDED as needed for panic attack(s) 90 October 06, 2022 8:04am November 08, 2022 4:18pm Start: 08-15-2014 End: 01-05-2018 take 1 tablet by mouth three times daily Clonazepam 0.5 MG tablet Discontinued 0.5 mg PO THREE TIMES A DAY October 28, 2016 12:00am January 05, 2018 12:29pm Comment on above: Take 1 tablet by [facility] three times daily as needed. fluconazole 200 mg oral tablet (18 sources) Azole Antifungal Start: 8 End: 8 take 1 tablet by mouth once daily Fluconazole 200 MG tablet Discontinued 200 mg PO DAILY August 04, 2017 1:00am August 23, 2017 10:27am furosemide 20 mg oral tablet (2 sources) Loop Diuretic Start: 6 End: 2 take 1 tablet by mouth twice daily furosemide (LASIX) 20 mg tablet Take 1 tablet by mouth twice daily. 30 tablet 0 03/01/2016 09/01/2021 Discontinued Start: 02-10-2016 End: 09-01-2021 take 0.5 tablet by mouth once daily furosemide (LASIX) 20 mg tablet Indications: Lymphedema Take 0.5 tablets by mouth once daily. 30 tablet 0 02/10/2016 09/01/2021 Discontinued Comment on above: Take 0.5 tablets by mouth once daily. Take 1 tablet by lucio th twice daily. GLUCOSE BLOOD (3 sources) Start: 10-26-2016 End: 01-26-2025 Confer BLUE STRP Check BG 4-5 times daily GLUCOSE BLOOD [id number] [facility] 3 ml insulin detemir 100 unt/ml pen injector (18 sources) Insulin Analog Start: 08-25-2016 End: 08-25-2016 Insulin Detemir U-100 (Levemir Flextouch U100 Insulin) 100 UNITS/ML Insuln.Pen Discontinued 15 U SC AT BEDTIME August 25, 2016 12:00am August 25, 2016 11:19am Start: 08-25-2016 End: 08-25-2016 Insulin Detemir U-100 (Levem ir Flextouch U-100 Insuln) 100 UNITS/ML Insuln.Pen Discontinued 15 UNITS SC AT BEDTIME August 25, 2016 12:00am August 25, 2016 11:19am Insulin Glargine (Lantus Solostar U-100 Insulin) 100 unit/mL (3 mL) insulin pen (5 sources) Start: 11-22-2021 End: 11-24-2021 Insulin Glargine (Lantus Anastasiia ostar U-100 Insulin) 100 unit/mL (3 mL) insulin pen Discontinued 65 UNIT SC AT BEDTIME November 22, 2021 6:35pm November 24, 2021 10:49am Hold if glucose less than 130 mg/dl Start: 09-22-2021 End: 11-22-2021 Insulin Glargine (Lantus Anastasiia ostar U-100 Insulin) 100 unit/mL (3 mL) insulin pen Discontinued 65 UNIT SC AT BEDTIME 0 September 22, 2021 9:07am November 22, 2021 6:36pm Hold if glucose less than 130 mg/dl Start: 09-22-2021 Insulin Glargi ne (Lantus Solostar U-100 Insulin) 100 unit/mL (3 mL) insulin pen Active 65 UNIT SC AT BEDTIME 0 September 22, 2021 9:07am Hold if glucose less than 130 mg/dl Insulin Glargine-Yfgn (16 sources) Start: 08-11-2022 End: 10-09-2024 Insulin Glargine-Yfgn 100 un it/mL (3 mL) insulin pen Discontinued 85 U SC AT BEDTIME 15 August 11, 2022 9:21am October 09, 2024 8:22pm Start: 08-11-2022 Insulin Glargi ne-Yfgn Active 85 UNIT SC AT BEDTIME August 11, 2022 8:21am Start: 08-11-2022 Insulin Glargi ne-Yfgn Active 85 UNIT SC AT BEDTIME 15 August 11, 2022 9:21am Start: 11-24-2021 End: 08-11-2022 Insulin Glargine-Yfgn 100 un it/mL (3 mL) Insulin Pen Discontinued 75 U SC AT BEDTIME 0 November 24, 2021 12:00am August 11, 2022 9:25am Start: 11-24-2021 End: 08-11-2022 Insulin Glargine-Yfgn Discon tinued 75 UNIT SC AT BEDTIME 0 November 23, 2021 11:00pm August 11, 2022 8:25am Start: 11-24-2021 End: 08-11-2022 Insulin Glargine-Yfgn Discon tinued 75 UNIT SC AT BEDTIME 0 November 24, 2021 12:00am August 11, 2022 9:25am Start: 11-24-2021 Insulin Glargi ne-Yfgn Active 75 UNIT SC AT BEDTIME 0 November 23, 2021 11:00pm Start: 11-24-2021 Insulin Glargi ne-Yfgn Active 75 UNIT SC AT BEDTIME 0 November 24, 2021 12:00am Lactobacillus acidophilus (1 source) End: 09-01-2021 Lactobacillus acidophilus (PROBIOTIC ORAL) Take by mouth. 0 09/01/2021 Discontinued Comment on above: Take by mouth. lamoTRIgine 100 mg oral tablet (20 sources) Mood Stabilizer, Anti-epileptic Agent Start: 08-15-2014 End: 11-22-2021 take 1 tablet by mouth once daily Lamotrigine 100 MG tablet Discontinued 100 mg PO DAILY February 28, 2019 12:00am November 22, 2021 6:36pm Comment on above: Take 1 tablet by lucio th once daily. LANCETS (3 sources) Start: 10-26-2016 ONETOUCH [place] [facility] [place] Use to check blood glucose up to 4 times daily. LANCETS [id number] [facility] mag hydrox/aluminum hyd/simeth (ANTACID SUSPENSION ORAL) (5 sources) take 30 mL by mouth every four hours as needed mag hydrox/aluminum hyd/simeth (ANTACID SUSPENSION ORAL) Take 30 mL by mouth. Every 4 hrs as needed 0 Active Comment on above: Take 30 mL by mouth. Every 4 hrs as needed miconazole nitrate 0.02 mg/mg topical powder (20 sources) Azole Antifungal Start: 08-23-2017 End: 11-22-2021 Miconazole Nitrate 2 % powder Discontinued 1 NMA TOPICAL TWICE A DAY 85 March 01, 2019 1:26pm November 22, 2021 6:36pm Miconazole powd (5 sources) Miconazole powd twice daily. 0 Active Comment on above: twice daily. nystatin 337223 unt/ml oral suspension (15 sources) Polyene Antifungal Start: 01-09-2023 End: 05-28-2024 take 1 mL by mouth four times daily Nystatin 100,000 unit/mL suspension Discontinued 2 mL PO 4 TIMES DAILY 40 5 January 09, 2023 12:00am May 28, 2024 4:20pm Put 1 mL in each side of mouth 4 times a day. Start: 01-09-2023 take 1 mL by mouth f our times daily Nystatin Active 2 ML PO 4 TIMES DAILY 40 5 January 08, 2023 11:00pm Put 1 mL in each side of mouth 4 times a day. Start: 11-24-2021 Nystatin (Nyam yc) 100,000 unit/gram Powder Active 1 NMA TOPICAL THREE TIMES A DAY 0 November 24, 2021 12:00am Start: 11-24-2021 Nystatin (Nyam yc) 100,000 unit/gram Powder Active 1 APPLIC TOPICAL THREE TIMES A DAY 0 November 23, 2021 11:00pm polyethylene glycol 3350 13169 mg powder for oral solution (9 sources) Osmotic Laxative Start: 09-08-2021 End: 10-08-2021 polyethylene glycol 3350 (MIRALAX, GLYCOLAX) 17 gram packet Take 1 Packet by mouth once daily. Dissolve dose in 4 - 8 ounces of liquid and take as directed. 30 Packet 0 09/08/2021 10/08/2021 Comment on above: Take 1 Packet by lucio th once daily. Dissolve dose in 4 - 8 ounces of liquid and take as directed. traMADol hydrochloride 50 mg oral tablet (9 sources) Opioid Agonist Start: 09-07-2021 take 1 tablet by mouth every six hours as needed for pain traMADol (ULTRAM) 50 mg tablet Indications: Status post hysterectomy Take 1 tablet by mouth every 6 hours as needed for pain. 15 tablet 0 09/07/2021 Active Comment on above: Take 1 tablet by lucio th every 6 hours as needed for pain. triamcinolone-niacina mide 0.1-4 % cream (5 sources) triamcinolone-ni aci namide 0.1-4 % cream Apply to affected area. 0 Active Comment on above: Apply to affected ar ea. Problems Active Problems Problem Classification Problem Date Documented Date Episodic/Chronic Attention-deficit, conduct, and disruptive behavior disorders (4 sources) Very low level of personal hygiene; Translations: [Very low level of personal hygiene] 10-09-2024 Episodic Attention-deficit, conduct, and disruptive behavior disorders (1 source) Very low level of personal hygiene; Translations: [Very low level of personal hygiene] Onset: 10-11-2024 Episodic Cancer of uterus (20 sources) Malignant neoplasm of endometrium of corpus uteri ; Translations: [Malignant neoplasm of endometrium] Onset: 09-08-2021 Chronic Comment on above: Endometrial adenocar cinoma, 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 Has been referred to [facility] at [facility] and has appt on 08/21/2021.Discussed management of endometrial cancer, surgery followed by adjuvant therapy depending on the stage.Pt agrees to proceed with surgical consultation. Complications of surgical procedures or medical care (4 sources) Difficult intubation; Translations: [Failed or difficult intubation, initial encounter] Onset: 09-07-2021 09-07-2021 Episodic Diabetes mellitus with complications (2 sources) Secondary diabetes mellitus; Translations: [Diabetes mellitus due to underlying condition with 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 nonketotic hyperglycemic-hyperos molar coma ([facility])] Onset: 10-11-2024 Chronic Diabetes mellitus without complication (20 sources) Type 2 diabetes mellitus; Translations: [Type 1 diabetes mellitus] Onset: 10-26-2016 10-26-2016 Chronic Disorders of lipid metabolism (3 sources) Mixed hyperlipidemia; Translations: [Mixed hyperlipidemia] Onset: 01-09-2024 Chronic Essential hypertension (1 source) Essential hypertension; Translations: [Essential (primary) hypertension] Chronic Fluid and electrolyte disorders (14 sources) Lactic acidosis; Translations: [Acidosis] Episodic Genitourinary symptoms and ill-defined conditions (18 sources) History of recurrent urinary tract infection; Translations: [Personal history of urinary (tract) infections] 08-23-2017 Episodic Malaise and fatigue (20 sources) Asthenia; Translations: [Other malaise] Episodic Mood disorders (20 sources) Mood disorder; Translations: [Unspecified mood [affective] disorder] Onset: 09-04-2014 06-01-2021 Chronic Nutritional deficiencies (20 sources) Vitamin D deficiency; Translations: [Vitamin D deficiency, unspecified] Onset: 01-09-2024 08-23-2017 Chronic Other aftercare (4 sources) Postoperative visit; Translations: [Encounter for other specified surgical aftercare] Onset: 09-07-2021 09-08-2021 Episodic Other aftercare (1 source) 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; Translations: [[facility] (current) use of insulin] Onset: 10-11-2024 Episodic Other connective tissue disease (4 sources) Foot pain; Translations: [Neuralgia and neuritis, unspecified] 10-09-2024 Episodic Other connective tissue disease (6 sources) Heel pain; Translations: [Pain in left foot] 10-09-2024 Episodic Other connective tissue disease (1 source) Neuralgia and neuritis, unspecified; Translations: [Neuralgia and neuritis, unspecified] Onset: 10-11-2024 Episodic Other connective tissue disease (1 source) Pain in left foot; Translations: [Pain in left foot] Onset: 10-19-2024 Episodic Other diseases of veins and lymphatics (20 sources) Lymphedema; Translations: [Lymphedema, not elsewhere classified] 08-03-2017 Chronic Other female genital disorders (18 sources) Abnormal vaginal bleeding; Translations: [Abnormal uterine and vaginal bleeding, unspecified] 08-03-2021 Chronic Other female genital disorders (18 sources) Lump of cervix; Translations: [Other specified noninflammatory disorders of cervix uteri] 08-03-2021 Episodic Other female genital disorders (18 sources) Mass of uterus; Translations: [Other specified noninflammatory disorders of uterus] 07-30-2021 Episodic Other female genital disorders (9 sources) Other specified noninflammatory disorders of uterus; Translations: [Other specified symptoms associated with female genital organs] Episodic Other hematologic conditions (11 sources) High troponin I level; Translations: [Other specified abnormalities of plasma proteins] 12-02-2021 Episodic Other hematologic conditions (3 sources) Other specified abnormalities of plasma proteins; Translations: [Other abnormal blood chemistry] Episodic Other inflammatory condition of skin (18 sources) Intertrigo; Translations: [Erythema intertrigo] 08-04-2017 Episodic Other nutritional; endocrine; and metabolic disorders (6 sources) Overweight; Translations: [Body mass index (BMI) 40.0-44.9, adult] Onset: 10-26-2016 10-26-2016 Chronic Other nutritional; endocrine; and metabolic disorders (4 sources) Body mass index 40+ - severely obese; Translations: [Morbid (severe) obesity due to excess calories] 10-09-2024 Chronic Other nutritional; endocrine; and metabolic disorders (6 sources) Obesity; Translations: [Obesity, unspecified] 05-28-2024 Chronic Other nutritional; endocrine; and metabolic disorders (1 source) Morbid (severe) obesity due to excess calories; Translations: [Morbid (severe) obesity due to excess calories] Onset: 10-11-2024 Chronic Other nutritional; endocrine; and metabolic disorders (1 source) Body mass index (BMI) 45.0-49.9, adult; Translations: [Body mass index [BMI] 45.0-49.9, adult] Onset: 10-11-2024 Chronic Other screening for suspected conditions (not mental disorders or infectious disease) (1 source) No current problems or disability 10-26-2016 Other skin disorders (2 sources) Infection of toenail; Translations: [Ingrowing nail] 11-09-2023 Episodic Other upper respiratory infections (4 sources) Acute bacterial pharyngitis; Translations: [Acute pharyngitis due to other specified organisms] 01-09-2023 Episodic Pulmonary heart disease (20 sources) Pulmonary embolism; Translations: [Other pulmonary embolism without acute cor pulmonale] Episodic Residual codes; unclassified (16 sources) History of clinical finding in subject; Translations: [Personal history of other specified conditions] 08-23-2017 Episodic Residual codes; unclassified (5 sources) Personal history of other specified conditions; Translations: [Personal history of other specified diseases] 05-06-2022 Episodic Residual codes; unclassified (4 sources) Unable to perform personal care activity; Translations: [Other specified health status] 10-09-2024 Episodic Residual codes; unclassified (1 source) Other specified health status; Translations: [Other specified health status] Onset: 10-11-2024 Episodic Screening and history of mental health and substance abuse codes (10 sources) Ex-smoker; Translations: [Personal history of nicotine dependence] 05-10-2022 Episodic Septicemia (except in labor) (18 sources) Sepsis; Translations: [Sepsis, unspecified organism] 08-02-2017 Episodic Skin and subcutaneous tissue infections (18 sources) Cellulitis; Translations: [Cellulitis, unspecified] 08-02-2017 Episodic Substance-related disorders (5 sources) Tobacco user; Translations: [Nicotine dependence, unspecified, uncomplicated] Onset: 07-15-2005 07-15-2005 Chronic Systemic lupus erythematosus and connective tissue disorders (5 sources) Systemic lupus erythematosus; Translations: [Systemic lupus erythematosus, unspecified] Onset: 07-15-2005 07-15-2005 Chronic Unclassified (4 sources) Pain of left heel; Translations: [M79.672 - Pain in left foot] Urinary tract infections (20 sources) Urinary tract infectious disease; Translations: [Urinary tract infection, site not specified] Onset: 10-11-2024 08-04-2017 Episodic Past or Other Problems Problem Classification Problem Date Documented Da te Episodic/Chronic Diabetes mellitus without complication (5 sources) Hyperglycemia; Translations: [Hyperglycemia, unspecified] Onset: 09-04-2014 09-04-2014 Episodic Other connective tissue disease (5 sources) Muscle pain; Translations: [Myalgia and myositis, unspecified] Onset: 07-15-2005 07-15-2005 Episodic Other ear and sense organ disorders (1 source) Impacted cerumen, right ear; Translations: [Impacted cerumen, right ear] Onset: 05-28-2024 Episodic Other liver diseases (5 sources) Enzyme level - finding; Translations: [Elevated transaminase level] Onset: 09-04-2014 09-04-2014 Episodic Other screening for suspected conditions (not mental disorders or infectious disease) (3 sources) Other specified abnormal findings of blood chemistry; Translations: [Elevated liver function tests] Onset: 06-19-2024 10-10-2023 Episodic Unclassified (18 sources) history of broken heel left foot 12-30-2021 Results Test Name Value Interpretation Reference Range Facility Basic Metabolic Profile (BMP )on 11-06-2024 BUN Normal 4-19 [facility] Comment on above: Order Comment: 216 Result Comment: QNS UTO X1 Performed By: #### L 506.1000, L100.0100, L501.9985, L500.4050 #### [facility] [address] [place], [address] BUN/CRE Normal 10-20 [facility] Comment on above: Order Comment: 216 Result Comment: QNS UTO X1 Performed By: #### L 506.1000, L100.0100, L501.9985, L500.4050 #### [facility] [address] [place], [address] Calcium Normal 7.6-11.0 [facility] Comment on above: Order Comment: 216 Result Comment: QNS UTO X1 Performed By: #### L 506.1000, L100.0100, L501.9985, L500.4050 #### [facility] [address] [place], [address] CL Normal 98-108 [facility] Comment on above: Order Comment: 216 Result Comment: QNS UTO X1 Performed By: #### L 506.1000, L100.0100, L501.9985, L500.4050 #### [facility] [address] [place], [address] CO2 Normal 21.0-32.0 [facility] Comment on above: Order Comment: 216 Result Comment: QNS UTO X1 Performed By: #### L 506.1000, L100.0100, L501.9985, L500.4050 #### [facility] [address] [place], [address] CREAT,SERUM Normal 0.70-1.20 [facility] Comment on above: Order Comment: 216 Result Comment: QNS UTO X1 Performed By: #### L 506.1000, L100.0100, L501.9985, L500.4050 #### [facility] [address] [place], [address] eGFR Normal >60 [facility] Comment on above: Order Comment: 216 Result Comment: QNS UTO X1 Performed By: #### L 506.1000, L100.0100, L501.9985, L500.4050 #### [facility] [address] [place], [address] GAP Normal 5-15 [facility] Comment on above: Order Comment: 216 Result Comment: QNS UTO X1 Performed By: #### L 506.1000, L100.0100, L501.9985, L500.4050 #### [facility] [address] [place], [address] GLU Normal 70-99 [facility] Comment on above: Order Comment: 216 Result Comment: QNS UTO X1 Performed By: #### L 506.1000, L100.0100, L501.9985, L500.4050 #### [facility] [address] [place], [address] Potassium Normal 3.3-5.1 [facility] Comment on above: Order Comment: 216 Result Comment: QNS UTO X1 Performed By: #### L 506.1000, L100.0100, L501.9985, L500.4050 #### [facility] [address] [place], [address] Basic Metabolic Profile (BMP) Normal 133-145 [facility] Comment on above: Order Comment: 216 Result Comment: QNS UTO X1 Performed By: #### L 506.1000, L100.0100, L501.9985, L500.4050 #### [facility] [address] [place], [address] CBC W/Diff, Automatedon 06-0 -2024 Absolute Neut Normal 2.0-7.7 [facility] Comment on above: Order Comment: 216 Result Comment: QNS UTO X1 Performed By: #### L 506.1000, L100.0100, L501.9985, L500.4050 #### [facility] [address] [place], [address] HCT Normal 37-47 [facility] Comment on above: Order Comment: 216 Result Comment: QNS UTO X1 Performed By: #### L 506.1000, L100.0100, L501.9985, L500.4050 #### [facility] [address] [place], [address] HGB Normal 12.0-15.0 [facility] Comment on above: Order Comment: 216 Result Comment: QNS UTO X1 Performed By: #### L 506.1000, L100.0100, L501.9985, L500.4050 #### [facility] [address] [place], [address] MCH Normal 27.0-32.0 [facility] Comment on above: Order Comment: 216 Result Comment: QNS UTO X1 Performed By: #### L 506.1000, L100.0100, L501.9985, L500.4050 #### [facility] [address] [place], [address] MCHC Normal 32-36 [facility] Comment on above: Order Comment: 216 Result Comment: QNS UTO X1 Performed By: #### L 506.1000, L100.0100, L501.9985, L500.4050 #### [facility] [address] [place], [address] MCV Normal 81-99 [facility] Comment on above: Order Comment: 216 Result Comment: QNS UTO X1 Performed By: #### L 506.1000, L100.0100, L501.9985, L500.4050 #### [facility] [address] [place], [address] NEUT% Normal 47-70 [facility] Comment on above: Order Comment: 216 Result Comment: QNS UTO X1 Performed By: #### L 506.1000, L100.0100, L501.9985, L500.4050 #### [facility] [address] [place], [address] PLT Normal 150-450 [facility] Comment on above: Order Comment: 216 Result Comment: QNS UTO X1 Performed By: #### L 506.1000, L100.0100, L501.9985, L500.4050 #### [facility] [address] [place], [address] RBC Normal 4.2-5.4 [facility] Comment on above: Order Comment: 216 Result Comment: QNS UTO X1 Performed By: #### L 506.1000, L100.0100, L501.9985, L500.4050 #### [facility] [address] [place], [address] RDW CV Normal 11.6-14.6 [facility] Comment on above: Order Comment: 216 Result Comment: QNS UTO X1 Performed By: #### L 506.1000, L100.0100, L501.9985, L500.4050 #### [facility] [address] [place], [address] RDW SD Normal 35.1-43.9 [facility] Comment on above: Order Comment: 216 Result Comment: QNS UTO X1 Performed By: #### L 506.1000, L100.0100, L501.9985, L500.4050 #### [facility] [address] [place], [address] WBC Normal 4.4-11.0 [facility] Comment on above: Order Comment: 216 Result Comment: QNS UTO X1 Performed By: #### L 506.1000, L100.0100, L501.9985, L500.4050 #### [facility] [address] [place], [address] Lamotrigine (Lamictal) Level on 11-02-2024 LAMOTRIGINE 8.5 ug/mL Normal 2.0-20.0 [facility] Comment on above: Order Comment: 134 Result Comment: Dete ction Limit = 1.0 Performed at: [address] [id number] [employer] Supervisor: Cody Llanos MD, Phone: [phone] Performed By: #### L 500.4050, L506.1000, L100.0100, L501.9985 #### [facility] [address] [place], [address] Trileptal-Oxcarbazepineon OXCARBAZEPINE 5 ug/mL Low 10-35 [facility] Comment on above: Order Comment: 134 Result Comment: This test was developed and its performance characteristics determined by [facility]. It has not been cleared or approved by the Food and Drug Administration. Detection Limit = 1 Performed By: #### L 500.4050, L506.1000, L100.0100, L501.9985 #### [facility] [address] [place], [address] CRPon 11-01-2024 C-REACTIVE PROT 14.10 mg/L High 0.0-3.0 [facility] Comment on above: Performed By: #### L 500.4050, L506.1000, L100.0100, L501.9985 #### [facility] [address] [place], [address] Uric Acidon 11-01-2024 URIC 5.6 mg/dL Normal 2.6-6.0 [facility] Comment on above: Result Comment: The drugs N-Acetylcysteine and Metamizole may falsely depress this assay. Performed By: #### L 500.4050, L506.1000, L100.0100, L501.9985 #### [facility] [address] [place], [address] Hemoglobin A1con 10-30-2024 HbA1c (Bld) [Mass fraction] 7.1 % High <=5.6 [facility] Comment on above: Order Comment: 134 Result Comment: Norm al < 5.7 % Prediabetic 5.7 - 6.4 % Diabetic >or= 6.5 % Please note range changes. Performed By: #### L 500.4050, L506.1000, L100.0100, L501.9985 #### [facility] [address] [place], [address] Lipid Profileon 10-30-2024 CHOL:HDL 1.80 Normal [facility] Comment on above: Order Comment: 134 Performed By: #### L 500.4050, L506.1000, L100.0100, L501.9985 #### [facility] [address] [place], [address] Cholesterol [Mass/Vol] 99 mg/dL Normal <=200 [facility] Comment on above: Order Comment: 134 Result Comment: Chol esterol level, Desirable <200 mg/dL Borderline high cholesterol 200-239 mg/dL High cholesterol >=240 mg/dL Recommendations of the NCEP Adult Treatment Panel for the following risk-cutoff thresholds for the [place] population. Performed By: #### L 500.4050, L506.1000, L100.0100, L501.9985 #### [facility] [address] [place], [address] Cholesterol in HDL [Mass/Vol] 55 mg/dL Normal [facility] Comment on above: Order Comment: 134 Result Comment: Linda onal Cholesterol Education Program (NCEP) guidelines: <40 mg/dL: Low HDL-cholesterol (major risk factor for CHD) >= 60 mg/dL: High HDL-cholesterol (negative risk factor for CHD) HDL-cholesterol is affected by a number of factors, e.g. smoking, exercise, hormones, sex and age. Performed By: #### L 500.4050, L506.1000, L100.0100, L501.9985 #### [facility] [address] [place], [address] Cholesterol in LDL [Mass/Vol] 34 mg/dL Normal [facility] Comment on above: Order Comment: 134 Result Comment: Bord smhnzr=139-353 mg/dL Higher Wfai=391 mg/dL or greater Performed By: #### L 500.4050, L506.1000, L100.0100, L501.9985 #### [facility] [address] [place], [place], [address] Cholesterol in VLDL [Mass/Vol] 10 mg/dL Normal 5-40 [facility] Comment on above: Order Comment: 134 Performed By: #### L 500.4050, L506.1000, L100.0100, L501.9985 #### [facility] [address] [place], [address] Triglyceride [Mass/Vol] 51 mg/dL Normal [facility] Comment on above: Order Comment: 134 Result Comment: The drugs N-Acetylcysteine and Metamizole may falsely depress this assay. Normal range: <150 mg/dL Borderline High: 150-199 mg/dL High: 200-499 mg/dL Very High: >500 mg/dL Performed By: #### L 500.4050, L506.1000, L100.0100, L501.9985 #### [facility] [address] [place], [address] Vitamin D,25 Hydroxyon 10-30 Vitamin D 25-OH 22.0 ng/mL Low 30-100 [facility] Comment on above: Order Comment: 134 Result Comment: Maricarmen min D Status Deficiency: <20 ng/mL (50nmol/L) Insufficiency: 20-30 ng/mL (50-75 nmol/L) Sufficiency: 30-100 ng/mL (75-250 nmol/L) Toxicity: >100 ng/mL (>250 nmol/L) Performed By: #### L 500.4050, L506.1000, L100.0100, L501.9985 #### [facility] [address] [place], [address] CBC-Complete Blood Cnt No Di ffon 10-25-2024 Erythrocyte distribution width (RBC) [Ratio] 15.7 % High 11.6-14.6 [facility] Comment on above: Order Comment: 134 Performed By: #### L 500.4050, L506.1000, L100.0100, L501.9985 #### [facility] [address] [place], [address] Hematocrit (Bld) [Volume fraction] 39.5 % Normal 37-47 [facility] Comment on above: Order Comment: 134 Performed By: #### L 500.4050, L506.1000, L100.0100, L501.9985 #### [facility] [address] [place], [address] Hemoglobin (Bld) [Mass/Vol] 13.0 g/dL Normal 12.0-15.0 [facility] Comment on above: Order Comment: 134 Performed By: #### L 500.4050, L506.1000, L100.0100, L501.9985 #### [facility] [address] [place], [address] MCH (RBC) [Entitic mass] 29.1 pg Normal 27.0-32.0 [facility] Comment on above: Order Comment: 134 Performed By: #### L 500.4050, L506.1000, L100.0100, L501.9985 #### [facility] [address] [place], [address] MCHC (RBC) [Mass/Vol] 32.9 g/dL Normal 32-36 [facility] Comment on above: Order Comment: 134 Performed By: #### L 500.4050, L506.1000, L100.0100, L501.9985 #### [facility] [address] [place], [address] MCV (RBC) [Entitic vol] 88.4 fL Normal 81-99 [facility] Comment on above: Order Comment: 134 Performed By: #### L 500.4050, L506.1000, L100.0100, L501.9985 #### [facility] [address] [place], [address] Platelet mean volume (Bld) [Entitic vol] 11.9 fL Normal 6.2-12.0 [facility] Comment on above: Order Comment: 134 Performed By: #### L 500.4050, L506.1000, L100.0100, L501.9985 #### [facility] [address] [place], [address] Platelets (Bld) [#/Vol] 104 10*3/uL Low 150-450 [facility] Comment on above: Order Comment: 134 Performed By: #### L 500.4050, L506.1000, L100.0100, L501.9985 #### [facility] [address] [place], [address] RBC (Bld) [#/Vol] 4.47 10*6/uL Normal 4.2-5.4 [facility] Comment on above: Order Comment: 134 Performed By: #### L 500.4050, L506.1000, L100.0100, L501.9985 #### [facility] [address] [place], [address] RDW SD 51.5 fl High 35.1-43.9 [facility] Comment on above: Order Comment: 134 Performed By: #### L 500.4050, L506.1000, L100.0100, L501.9985 #### [facility] [address] [place], [address] WBC (Bld) [#/Vol] 6.3 10*3/uL Normal 4.4-11.0 [facility] Comment on above: Order Comment: 134 Performed By: #### L 500.4050, L506.1000, L100.0100, L501.9985 #### [facility] [address] [place], [address] Comprehensive Metabolic Prof [facility] 10-25-2024 Albumin [Mass/Vol] 3.8 g/dL Normal 3.4-4.8 [facility] Comment on above: Order Comment: 134 Performed By: #### L 500.4050, L506.1000, L100.0100, L501.9985 #### [facility] [address] [place], [address] Albumin/Globulin [Mass ratio] 0.9 {ratio} Normal 0.9-2.4 [facility] Comment on above: Order Comment: 134 Performed By: #### L 500.4050, L506.1000, L100.0100, L501.9985 #### [facility] [address] [place], [address] ALK PHOS 117 U/L High 35-104 [facility] Comment on above: Order Comment: 134 Performed By: #### L 500.4050, L506.1000, L100.0100, L501.9985 #### [facility] [address] [place], [address] ALT [Catalytic activity/Vol] 37 U/L High <=34 [facility] Comment on above: Order Comment: 134 Performed By: #### L 500.4050, L506.1000, L100.0100, L501.9985 #### [facility] [address] [place], [address] AST [Catalytic activity/Vol] 44 U/L High <=31 [facility] Comment on above: Order Comment: 134 Performed By: #### L 500.4050, L506.1000, L100.0100, L501.9985 #### [facility] [address] [place], [address] Bilirubin [Mass/Vol] 0.50 mg/dL Normal 0.00-1.[address] [facility] Comment on above: Order Comment: 134 Performed By: #### L 500.4050, L506.1000, L100.0100, L501.9985 #### [facility] [address] [place], [address] BUN/CRE 25.5 RATIO High 10-20 [facility] Comment on above: Order Comment: 134 Performed By: #### L 500.4050, L506.1000, L100.0100, L501.9985 #### [facility] [address] [place], [address] Calcium [Mass/Vol] 9.4 mg/dL Normal 7.6-11.0 [facility] Comment on above: Order Comment: 134 Performed By: #### L 500.4050, L506.1000, L100.0100, L501.9985 #### [facility] [address] [place], [address] Chloride [Moles/Vol] 101 mmol/L Normal 98-[address] [facility] Comment on above: Order Comment: 134 Performed By: #### L 500.4050, L506.1000, L100.0100, L501.9985 #### [facility] [address] [place], [address] CO2 [Moles/Vol] 23.5 mmol/L Normal 21.0-32.0 [facility] Comment on above: Order Comment: 134 Performed By: #### L 500.4050, L506.1000, L100.0100, L501.9985 #### [facility] [address] [place], [address] Creatinine [Mass/Vol] 0.93 mg/dL Normal 0.70-1.20 [facility] Comment on above: Order Comment: 134 Performed By: #### L 500.4050, L506.1000, L100.0100, L501.9985 #### [facility] [address] [place], [address] GAP 10 Normal 5-15 [facility] Comment on above: Order Comment: 134 Performed By: #### L 500.4050, L506.1000, L100.0100, L501.9985 #### [facility] [address] [place], [address] GFR/1.73 sq M.predicted among non-blacks MDRD (S/P/Bld) [Vol rate/Area] 65 mL/min/{1.73_m2} Normal >60 [facility] Comment on above: Order Comment: 134 Result Comment: mL/m in/1.73m2 CKD-EPI Creatinine Equation (2020) Performed By: #### L 500.4050, L506.1000, L100.0100, L501.9985 #### [facility] [address] [place], [address] Globulin (S) [Mass/Vol] 4.4 g/dL High 2.2-4.2 [facility] Comment on above: Order Comment: 134 Performed By: #### L 500.4050, L506.1000, L100.0100, L501.9985 #### [facility] [address] [place], [address] Glucose [Mass/Vol] 147 mg/dL High 70-99 [facility] Comment on above: Order Comment: 134 Performed By: #### L 500.4050, L506.1000, L100.0100, L501.9985 #### [facility] [address] [place], [address] Potassium [Moles/Vol] 4.7 mmol/L Normal 3.3-5.1 [facility] Comment on above: Order Comment: 134 Performed By: #### L 500.4050, L506.1000, L100.0100, L501.9985 #### [facility] [address] [place], [address] Sodium [Moles/Vol] 134 mmol/L Normal 133-145 [facility] Comment on above: Order Comment: 134 Performed By: #### L 500.4050, L506.1000, L100.0100, L501.9985 #### [facility] [address] [place], [address] T PROT 8.2 g/dL Normal 5.9-8.4 [facility] Comment on above: Order Comment: 134 Performed By: #### L 500.4050, L506.1000, L100.0100, L501.9985 #### [facility] [address] [place], [address] Urea nitrogen [Mass/Vol] 24 mg/dL High 4-19 [facility] Comment on above: Order Comment: 134 Performed By: #### L 500.4050, L506.1000, L100.0100, L501.9985 #### [facility] [address] [place], [address] Urine Cultureon 10-14-2024 [facility] Urine Culture Urine Culture Escherichia coli Sebastian Count 80,000-100,000 Escherichia coli: REACTION Ampicillin Islt TRANG >=32 Ampicillin+Sulbac Islt TRANG 4 S Cefepime Islt TRANG <=0.12 S cefTRIAXone Islt TRANG <=0.25 S Ciprofloxacin Islt TRANG <=0.06 S B-Lactamase Extended Susc Islt NEG Gentamicin Islt TRANG <=1 S levoFLOXacin Islt TRANG <=0.12 S Meropenem Islt TRANG <=0.25 S Nitrofurantoin Islt TRANG <=16 S Pip+Tazo Islt TRANG <=4 S TMP SMX Islt TRANG <=20 S Normal [facility] Comment on above: Performed By: #### L 500.4050, L506.1000, L100.0100, L501.9985 #### [facility] [address] [place], [address] Basic Metabolic Profile (BMP )on 10-12-2024 BUN Normal 4-19 [facility] Comment on above: Result Comment: Canc elled via OM: Order cancelled - Patient discharged Performed By: #### L 506.1000, L100.0100, L501.9985, L500.4050 #### [facility] [address] [place], [address] BUN/CRE Normal 10-20 [facility] Comment on above: Result Comment: Canc elled via OM: Order cancelled - Patient discharged Performed By: #### L 506.1000, L100.0100, L501.9985, L500.4050 #### [facility] [address] [place], [address] Calcium Normal 7.6-11.0 [facility] Comment on above: Result Comment: Canc elled via OM: Order cancelled - Patient discharged Performed By: #### L 506.1000, L100.0100, L501.9985, L500.4050 #### [facility] [address] [place], [address] CL Normal 98-108 [facility] Comment on above: Result Comment: Canc elled via OM: Order cancelled - Patient discharged Performed By: #### L 506.1000, L100.0100, L501.9985, L500.4050 #### [facility] [address] [place], [address] CO2 Normal 21.0-32.0 [facility] Comment on above: Result Comment: Canc elled via OM: Order cancelled - Patient discharged Performed By: #### L 506.1000, L100.0100, L501.9985, L500.4050 #### [facility] [address] [place], [address] CREAT,SERUM Normal 0.70-1.20 [facility] Comment on above: Result Comment: Canc elled via OM: Order cancelled - Patient discharged Performed By: #### L 506.1000, L100.0100, L501.9985, L500.4050 #### [facility] [address] [place], [address] eGFR Normal >60 [facility] Comment on above: Result Comment: Canc elled via OM: Order cancelled - Patient discharged Performed By: #### L 506.1000, L100.0100, L501.9985, L500.4050 #### [facility] [address] [place], [address] GAP Normal 5-15 [facility] Comment on above: Result Comment: Canc elled via OM: Order cancelled - Patient discharged Performed By: #### L 506.1000, L100.0100, L501.9985, L500.4050 #### [facility] [address] [place], [address] GLU Normal 70-99 [facility] Comment on above: Result Comment: Canc elled via OM: Order cancelled - Patient discharged Performed By: #### L 506.1000, L100.0100, L501.9985, L500.4050 #### [facility] [address] [place], [address] Potassium Normal 3.3-5.1 [facility] Comment on above: Result Comment: Canc elled via OM: Order cancelled - Patient discharged Performed By: #### L 506.1000, L100.0100, L501.9985, L500.4050 #### [facility] [address] [place], [address] Basic Metabolic Profile (BMP) Normal 133-145 [facility] Comment on above: Result Comment: Canc elled via OM: Order cancelled - Patient discharged Performed By: #### L 506.1000, L100.0100, L501.9985, L500.4050 #### [facility] [address] [place], [address] CBC W/Diff, Automatedon 05-0 -2024 Absolute Neut Normal 2.0-7.7 [facility] Comment on above: Result Comment: Canc elled via OM: Order cancelled - Patient discharged Performed By: #### L 506.1000, L100.0100, L501.9985, L500.4050 #### [facility] [address] [place], [address] HCT Normal 37-47 [facility] Comment on above: Result Comment: Canc elled via OM: Order cancelled - Patient discharged Performed By: #### L 506.1000, L100.0100, L501.9985, L500.4050 #### [facility] [address] [place], [address] HGB Normal 12.0-15.0 [facility] Comment on above: Result Comment: Canc elled via OM: Order cancelled - Patient discharged Performed By: #### L 506.1000, L100.0100, L501.9985, L500.4050 #### [facility] [address] [place], [address] MCH Normal 27.0-32.0 [facility] Comment on above: Result Comment: Canc elled via OM: Order cancelled - Patient discharged Performed By: #### L 506.1000, L100.0100, L501.9985, L500.4050 #### [facility] [address] [place], [address] MCHC Normal 32-36 [facility] Comment on above: Result Comment: Canc elled via OM: Order cancelled - Patient discharged Performed By: #### L 506.1000, L100.0100, L501.9985, L500.4050 #### [facility] [address] [place], [address] MCV Normal 81-99 [facility] Comment on above: Result Comment: Canc elled via OM: Order cancelled - Patient discharged Performed By: #### L 506.1000, L100.0100, L501.9985, L500.4050 #### [facility] [address] [place], [address] NEUT% Normal 47-70 [facility] Comment on above: Result Comment: Canc elled via OM: Order cancelled - Patient discharged Performed By: #### L 506.1000, L100.0100, L501.9985, L500.4050 #### [facility] [address] [place], [address] PLT Normal 150-450 [facility] Comment on above: Result Comment: Canc elled via OM: Order cancelled - Patient discharged Performed By: #### L 506.1000, L100.0100, L501.9985, L500.4050 #### [facility] [address] [place], [address] RBC Normal 4.2-5.4 [facility] Comment on above: Result Comment: Canc elled via OM: Order cancelled - Patient discharged Performed By: #### L 506.1000, L100.0100, L501.9985, L500.4050 #### [facility] [address] [place], [address] RDW CV Normal 11.6-14.6 [facility] Comment on above: Result Comment: Canc elled via OM: Order cancelled - Patient discharged Performed By: #### L 506.1000, L100.0100, L501.9985, L500.4050 #### [facility] [address] [place], [address] RDW SD Normal 35.1-43.9 [facility] Comment on above: Result Comment: Canc elled via OM: Order cancelled - Patient discharged Performed By: #### L 506.1000, L100.0100, L501.9985, L500.4050 #### [facility] [address] [place], [address] WBC Normal 4.4-11.0 [facility] Comment on above: Result Comment: Canc elled via OM: Order cancelled - Patient discharged Performed By: #### L 506.1000, L100.0100, L501.9985, L500.4050 #### [facility] [address] [place], [address] Absolute lymphocyte countOrd ered By: Tyrell Page on 10-11-2024 Lymphocytes Auto (Unsp spec) [#/Vol] 1.20 10*3/uL 0.83-4.51 [facility] Absolute neutrophil countOrd ered By: Tyrell Page on 10-11-2024 Neutrophils (Bld) [#/Vol] 2.6 10*3/uL 2.0-7.7 [facility] Anion gap in Serum or Plasma Ordered By: Tyrell Page on 10-11-2024 Anion gap [Moles/Vol] 10 mmol/L 5-15 [facility] Automated lymphocyte count a s percentage of total leukocytesOrdered By: Tyrell Page on 10-11-2024 Lymphocytes/100 WBC Auto (Unsp spec) 26.8 % 19-41 [facility] BUN/creatinine ratioOrdered By: Tyrell Page on 10-11-2024 Urea nitrogen/Creatinine [Mass ratio] 28.3 mg/mg High 10-20 [facility] Basic Metabolic Profile (BMP )on 10-11-2024 BUN/CRE 28.3 RATIO High 10-20 [facility] Comment on above: Performed By: #### L 506.1000, L100.0100, L501.9985, L500.4050 #### [facility] [address] [place], [address] Calcium [Mass/Vol] 9.2 mg/dL Normal 7.6-11.0 [facility] Comment on above: Performed By: #### L 506.1000, L100.0100, L501.9985, L500.4050 #### [facility] [address] [place], [address] Chloride [Moles/Vol] 108 mmol/L Normal 98-[address] [facility] Comment on above: Performed By: #### L 506.1000, L100.0100, L501.9985, L500.4050 #### [facility] [address] [place], [address] CO2 [Moles/Vol] 20.7 mmol/L Low 21.0-32.0 [facility] Comment on above: Performed By: #### L 506.1000, L100.0100, L501.9985, L500.4050 #### [facility] [address] [place], [address] Creatinine [Mass/Vol] 0.76 mg/dL Normal 0.70-1.20 [facility] Comment on above: Performed By: #### L 506.1000, L100.0100, L501.9985, L500.4050 #### [facility] [address] [place], [address] ECRCL 89.89 ml/min Normal 50-250 [facility] Comment on above: Performed By: #### L 506.1000, L100.0100, L501.9985, L500.4050 #### [facility] [address] [place], [address] GAP 10 Normal 5-15 [facility] Comment on above: Performed By: #### L 506.1000, L100.0100, L501.9985, L500.4050 #### [facility] [address] [place], [address] GFR/1.73 sq M.predicted among non-blacks MDRD (S/P/Bld) [Vol rate/Area] 84 mL/min/{1.73_m2} Normal >60 [facility] Comment on above: Result Comment: mL/m in/1.73m2 CKD-EPI Creatinine Equation (2020) Performed By: #### L 506.1000, L100.0100, L501.9985, L500.4050 #### [facility] [address] [place], [address] Glucose [Mass/Vol] 131 mg/dL High 70-99 [facility] Comment on above: Performed By: #### L 506.1000, L100.0100, L501.9985, L500.4050 #### [facility] [address] [place], [address] Potassium [Moles/Vol] 3.9 mmol/L Normal 3.3-5.1 [facility] Comment on above: Performed By: #### L 506.1000, L100.0100, L501.9985, L500.4050 #### [facility] [address] [place], [address] Sodium [Moles/Vol] 139 mmol/L Normal 133-145 [facility] Comment on above: Performed By: #### L 506.1000, L100.0100, L501.9985, L500.4050 #### [facility] [address] [place], [address] Urea nitrogen [Mass/Vol] 21 mg/dL High 4-19 [facility] Comment on above: Performed By: #### L 506.1000, L100.0100, L501.9985, L500.4050 #### [facility] [address] [place], [address] Basophil percentageOrdered B y: Tyrell Page on 10-11-2024 Basophils/100 WBC (Bld) 0.7 % 0-1 [facility] Bedside Glucoseon 10-11-2024 [place] GLU 137 mg/dL High 74-106 [facility] Comment on above: Result Comment: ALINA GEMENT OF PATIENT CARE PER NURSING PROTOCOL Performed By: #### L 500.4050, L506.1000, L100.0100, L501.9985 #### [facility] [address] [place], [address] CBC W/Diff, Automatedon 05-0 PLT EST SLT DEC Normal ADEQ [facility] Comment on above: Performed By: #### L 500.4050, L506.1000, L100.0100, L501.9985 #### [facility] [address] [place], [address] Carbon dioxide, total [Moles /volume] in Central venous bloodOrdered By: Tyrell Page on 10-11-2024 CO2 [Moles/Vol] 20.7 mmol/L Low 21.0-32.0 [facility] Chloride assayOrdered By: Arabella Page on 10-11-2024 Chloride [Moles/Vol] 108 mmol/L 98-[address] [facility] Eosinophil percentageOrdered By: Tyrell Page on 10-11-2024 Eosinophils/100 WBC (Bld) 5.1 % High 0-5 [facility] Erythrocyte distribution wid th ratioOrdered By: Tyrell Page on 10-11-2024 Erythrocyte distribution width (RBC) [Ratio] 16.0 % High 11.6-14.6 [facility] Erythrocyte distribution wid th standard deviationOrdered By: Tyrell Page on 10-11-2024 Erythrocyte distribution width (RBC) [Ratio] 50.8 fl High 35.1-43.9 [facility] Glomerular filtration rate ( GFR) estimation/1.73 sq m using serum, plasma, or whole bOrdered By: Tyrell Page on 10-11-2024 GFR/1.73 sq M.predicted among non-blacks MDRD (S/P/Bld) [Vol rate/Area] 84 mL/min/{1.73_m2} >60 [facility] Comment on above: mL/min/1.73m2 CKD-EP I Creatinine Equation (2020) [facility] deOrdered By: Tyrell Page on 10-11-2024 Glucose [Mass/Vol] 137 mg/dL High 74-106 [facility] Comment on above: MANAGEMENT OF PATIEN T CARE PER NURSING PROTOCOL Hematocrit Auto (Bld) [Volum e fraction]Ordered By: Tyrell Page on 10-11-2024 Hematocrit (Bld) [Volume fraction] 34.0 % Low 37-47 [facility] Hemoglobin measurementOrdere d By: Tyrell Page on 10-11-2024 Hemoglobin (Bld) [Mass/Vol] 11.3 g/dL Low 12.0-15.0 [facility] Immature granulocytes/100 WB C Auto (Bld)Ordered By: Tyrell Page on 10-11-2024 Immature granulocytes/100 WBC (Bld) 0.200 % 0.0-0.9 [facility] Comment on above: IG% - Immature Granu locytes (promyelocytes, myelocytes and metamyelocytes) > 1% indicates that a LEFT SHIFT is Present. MCV (mean corpuscular volume ) determinationOrdered By: Tyrell Page on 10-11-2024 MCV (RBC) [Entitic vol] 86.7 fL 81-99 [facility] Magnesiumon 10-11-2024 Magnesium [Mass/Vol] 2.1 mg/dL Normal 1.5-2.[address] [facility] Comment on above: Performed By: #### L 506.1000, L100.0100, L501.9985, L500.4050 #### [facility] [address] [place], [place], [address] Magnesium measurement (mass/ volume)Ordered By: Tyrell Page on 10-11-2024 Magnesium (Unsp spec) [Mass/Vol] 2.1 mg/dL 1.5-2.2 [facility] Mean corpuscular hemoglobin (MCH) determinationOrdered By: Tyrell Page on 10-11-2024 MCH (RBC) [Entitic mass] 28.8 pg 27.0-32.0 [facility] Mean corpuscular hemoglobin concentration (MCHC) determinationOrdered By: Tyrell Page on 10-11-2024 MCHC (RBC) [Mass/Vol] 33.2 g/dL 32-36 [facility] Mean platelet volume determi nationOrdered By: Tyrell Page on 10-11-2024 Platelet mean volume (Bld) [Entitic vol] 11.1 fL 6.2-12.0 [facility] Monocyte percentageOrdered B y: Tyrell Page on 10-11-2024 Monocytes/100 WBC (Bld) 9.8 % 0-10 [facility] Neutrophil percentageOrdered By: Tyrell Page on 10-11-2024 Neutrophils/100 WBC (Bld) 57.4 % 47-70 [facility] Nucleated red blood cell per centageOrdered By: Tyrell Page on 10-11-2024 Nucleated RBC/100 WBC (Bld) [Ratio] 0 % 0-5 [facility] Phosphoruson 10-11-2024 Phosphate [Mass/Vol] 3.7 mg/dL Normal 2.7-4.[address] [facility] Comment on above: Performed By: #### L 506.1000, L100.0100, L501.9985, L500.4050 #### [facility] [address] [place], [address] Platelet countOrdered By: Arabella Page on 10-11-2024 Platelets (Bld) [#/Vol] 95 10*3/uL Low 150-450 [facility] Platelet estimateOrdered By: Tyrell Page on 10-11-2024 Platelets LM Ql (Bld) SLT DEC ADEQ [facility] Potassium measurement (mass/ volume)Ordered By: Tyrell Page on 10-11-2024 Potassium (Unsp spec) [Mass/Vol] 3.9 mmol/L 3.3-5.1 [facility] RBC Auto (Bld) [#/Vol]Ordere d By: Tyrell Page on 10-11-2024 RBC (Bld) [#/Vol] 3.92 10*6/uL Low 4.2-5.4 [facility] Serum creatinine measurement (mass/volume)Ordered By: Tyrell Page on 10-11-2024 Creatinine [Mass/Vol] 0.76 mg/dL 0.70-1.20 [facility] Serum glucose measurement (m ass/volume)Ordered By: Tyrell Page on 10-11-2024 Glucose [Mass/Vol] 131 mg/dL High 70-99 [facility] Serum or plasma calcium kim urement (mass/volume)Ordered By: Tyrell Page on 10-11-2024 Calcium [Mass/Vol] 9.2 mg/dL 7.6-11.0 [facility] Serum or plasma urea nitroge n measurement (mass/volume)Ordered By: Tyrell Page on 10-11-2024 Urea nitrogen [Mass/Vol] 21 mg/dL High 4-19 [facility] Sodium levelOrdered By: Nikunj Page on 10-11-2024 Sodium [Moles/Vol] 139 mmol/L 133-145 [facility] White blood cell (WBC) count Ordered By: Tyrell Page on 10-11-2024 WBC (Bld) [#/Vol] 4.5 10*3/uL 4.4-11.0 [facility] Bedside Glucoseon 10-10-2024 FINGERSTICK GLU 159 mg/dL High 74-106 [facility] Comment on above: Result Comment: ALINA GABRIEL OF PATIENT CARE PER NURSING PROTOCOL Performed By: #### L 500.4050, L506.1000, L100.0100, L501.9985 #### [facility] [address] [place], [address] FINGERSTICK GLU 196 mg/dL High 74-106 [facility] Comment on above: Result Comment: ALINA GEMENT OF PATIENT CARE PER NURSING PROTOCOL Performed By: #### L 500.4050, L506.1000, L100.0100, L501.9985 #### [facility] [address] [place], [address] FINGERSTICK GLU 165 mg/dL High 74-106 [facility] Comment on above: Result Comment: ALINA GEMENT OF PATIENT CARE PER NURSING PROTOCOL Performed By: #### L 501.080 #### [facility] [address] [place], [address] FINGERSTICK GLU 159 mg/dL High -106 [facility] Comment on above: Result Comment: ALINA GEMENT OF PATIENT CARE PER NURSING PROTOCOL Performed By: #### L 500.4050, L506.1000, L100.0100, L501.9985 #### [facility] [address] [place], [address] FINGERSTICK GLU 148 mg/dL High [facility]106 [facility] Comment on above: Result Comment: ALINA GEMENT OF PATIENT CARE PER NURSING PROTOCOL Performed By: #### L 500.4050, L506.1000, L100.0100, L501.9985 #### [facility] [address] [place], [address] Bilirubin, totalOrdered By: Missael Lomeli on 10-10-2024 Bilirubin [Mass/Vol] 0.68 mg/dL 0.00-1.[address] [facility] CBC W/Diff, Automatedon Absolute Lymph 1.03 X10 3/uL Normal 0.83-4.51 [facility] Comment on above: Performed By: #### L 506.1000, L100.0100, L501.9985, L500.4050 #### [facility] [address] [place], [address] Absolute Neut 3.4 X10 3/uL Normal 2.0-7.7 [facility] Comment on above: Performed By: #### L 506.1000, L100.0100, L501.9985, L500.4050 #### [facility] [address] [place], [address] Basophils/100 WBC (Bld) 0.6 % Normal 0-1 [facility] Comment on above: Performed By: #### L 506.1000, L100.0100, L501.9985, L500.4050 #### [facility] [address] [place], [address] Eosinophils/100 WBC (Bld) 5.1 % High 0-5 [facility] Comment on above: Performed By: #### L 506.1000, L100.0100, L501.9985, L500.4050 #### [facility] [address] [place], [address] Erythrocyte distribution width (RBC) [Ratio] 15.9 % High 11.6-14.6 [facility] Comment on above: Performed By: #### L 506.1000, L100.0100, L501.9985, L500.4050 #### [facility] [address] [place], [address] Hematocrit (Bld) [Volume fraction] 37.6 % Normal 37-47 [facility] Comment on above: Performed By: #### L 506.1000, L100.0100, L501.9985, L500.4050 #### [facility] [address] [place], [address] Hemoglobin (Bld) [Mass/Vol] 12.3 g/dL Normal 12.0-15.0 [facility] Comment on above: Performed By: #### L 506.1000, L100.0100, L501.9985, L500.4050 #### [facility] [address] [place], [address] IG% 0.200 Normal 0.0-0.9 [facility] Comment on above: Result Comment: IG% - Immature Granulocytes (promyelocytes, myelocytes and metamyelocytes) > 1% indicates that a LEFT SHIFT is Present. Performed By: #### L 506.1000, L100.0100, L501.9985, L500.4050 #### [facility] [address] [place], [address] Lymphocytes/100 WBC (Bld) 19.6 % Normal 19-41 [facility] Comment on above: Performed By: #### L 506.1000, L100.0100, L501.9985, L500.4050 #### [facility] [address] [place], [address] MCH (RBC) [Entitic mass] 28.8 pg Normal 27.0-32.0 [facility] Comment on above: Performed By: #### L 506.1000, L100.0100, L501.9985, L500.4050 #### [facility] [address] [place], [address] MCHC (RBC) [Mass/Vol] 32.7 g/dL Normal 32-36 [facility] Comment on above: Performed By: #### L 506.1000, L100.0100, L501.9985, L500.4050 #### [facility] [address] [place], [address] MCV (RBC) [Entitic vol] 88.1 fL Normal 81-99 [facility] Comment on above: Performed By: #### L 506.1000, L100.0100, L501.9985, L500.4050 #### [facility] [address] [place], [address] Monocytes/100 WBC (Bld) 9.1 % Normal 0-10 [facility] Comment on above: Performed By: #### L 506.1000, L100.0100, L501.9985, L500.4050 #### [facility] [address] [place], [address] Neutrophils/100 WBC (Bld) 65.4 % Normal 47-70 [facility] Comment on above: Performed By: #### L 506.1000, L100.0100, L501.9985, L500.4050 #### [facility] [address] [place], [address] Nucleated RBC (Bld) [#/Vol] 0 10*3/uL Normal 0-5 [facility] Comment on above: Performed By: #### L 506.1000, L100.0100, L501.9985, L500.4050 #### [facility] [address] [place], [address] Platelet mean volume (Bld) [Entitic vol] 11.7 fL Normal 6.2-12.0 [facility] Comment on above: Performed By: #### L 506.1000, L100.0100, L501.9985, L500.4050 #### [facility] [address] [place], [address] Platelets (Bld) [#/Vol] 100 10*3/uL Low 150-450 [facility] Comment on above: Performed By: #### L 506.1000, L100.0100, L501.9985, L500.4050 #### [facility] [address] [place], [address] RBC (Bld) [#/Vol] 4.27 10*6/uL Normal 4.2-5.4 [facility] Comment on above: Performed By: #### L 506.1000, L100.0100, L501.9985, L500.4050 #### [facility] [address] [place], [address] RDW SD 51.4 fl High 35.1-43.9 [facility] Comment on above: Performed By: #### L 506.1000, L100.0100, L501.9985, L500.4050 #### [facility] [address] [place], [address] WBC (Bld) [#/Vol] 5.3 10*3/uL Normal 4.4-11.0 [facility] Comment on above: Performed By: #### L 506.1000, L100.0100, L501.9985, L500.4050 #### [facility] [address] [place], [address] Calculated very low density lipoprotein (VLDL) cholesterol measurementOrdered By: Missael Lomeli on 10-10-2024 Calculated very low density lipoprotein (VLDL) cholesterol measurement 16 mg/dL 5-40 [facility] Comprehensive Metabolic Prof ilon 10-10-2024 Albumin [Mass/Vol] 3.5 g/dL Normal 3.4-4.8 [facility] Comment on above: Performed By: #### L 500.4050, L506.1000, L100.0100, L501.9985 #### [facility] [address] [place], [address] Albumin/Globulin [Mass ratio] 1.0 {ratio} Normal 0.9-2.4 [facility] Comment on above: Performed By: #### L 500.4050, L506.1000, L100.0100, L501.9985 #### [facility] [address] [place], [address] ALK PHOS 122 U/L High 35-104 [facility] Comment on above: Performed By: #### L 500.4050, L506.1000, L100.0100, L501.9985 #### [facility] [address] [place], [address] ALT [Catalytic activity/Vol] 23 U/L Normal <=34 [facility] Comment on above: Performed By: #### L 500.4050, L506.1000, L100.0100, L501.9985 #### [facility] [address] [place], [address] AST [Catalytic activity/Vol] 37 U/L High <=31 [facility] Comment on above: Result Comment: Hemo lysis present, Results??could be affected. ?? Performed By: #### L 500.4050, L506.1000, L100.0100, L501.9985 #### [facility] [address] [place], [address] Bilirubin [Mass/Vol] 0.68 mg/dL Normal 0.00-1.[address] [facility] Comment on above: Performed By: #### L 500.4050, L506.1000, L100.0100, L501.9985 #### [facility] [address] [place], [address] BUN/CRE 25.4 RATIO High 10-20 [facility] Comment on above: Performed By: #### L 500.4050, L506.1000, L100.0100, L501.9985 #### [facility] [address] [place], [address] Calcium [Mass/Vol] 8.9 mg/dL Normal 7.6-11.0 [facility] Comment on above: Performed By: #### L 500.4050, L506.1000, L100.0100, L501.9985 #### [facility] [address] [place], [address] Chloride [Moles/Vol] 106 mmol/L Normal 98-[address] [facility] Comment on above: Performed By: #### L 500.4050, L506.1000, L100.0100, L501.9985 #### [facility] [address] [place], [address] CO2 [Moles/Vol] 19.0 mmol/L Low 21.0-32.0 [facility] Comment on above: Performed By: #### L 500.4050, L506.1000, L100.0100, L501.9985 #### [facility] [address] [place], [address] Creatinine [Mass/Vol] 0.78 mg/dL Normal 0.70-1.20 [facility] Comment on above: Performed By: #### L 500.4050, L506.1000, L100.0100, L501.9985 #### [facility] [address] [place], [address] ECRCL 88.83 ml/min Normal 50-250 [facility] Comment on above: Performed By: #### L 500.4050, L506.1000, L100.0100, L501.9985 #### [facility] [address] [place], [address] GAP 13 Normal 5-15 [facility] Comment on above: Performed By: #### L 500.4050, L506.1000, L100.0100, L501.9985 #### [facility] [address] [place], [address] GFR/1.73 sq M.predicted among non-blacks MDRD (S/P/Bld) [Vol rate/Area] 81 mL/min/{1.73_m2} Normal >60 [facility] Comment on above: Result Comment: mL/m in/1.73m2 CKD-EPI Creatinine Equation (2020) Performed By: #### L 500.4050, L506.1000, L100.0100, L501.9985 #### [facility] [address] [place], [address] Globulin (S) [Mass/Vol] 3.7 g/dL Normal 2.2-4.2 [facility] Comment on above: Performed By: #### L 500.4050, L506.1000, L100.0100, L501.9985 #### [facility] [address] [place], [address] Glucose [Mass/Vol] 151 mg/dL High 70-99 [facility] Comment on above: Performed By: #### L 500.4050, L506.1000, L100.0100, L501.9985 #### [facility] [address] [place], [address] Potassium [Moles/Vol] 4.3 mmol/L Normal 3.3-5.1 [facility] Comment on above: Result Comment: Hemo lysis present, Results??could be affected. ?? Performed By: #### L 500.4050, L506.1000, L100.0100, L501.9985 #### [facility] [address] [place], [address] Sodium [Moles/Vol] 138 mmol/L Normal 133-145 [facility] Comment on above: Performed By: #### L 500.4050, L506.1000, L100.0100, L501.9985 #### [facility] [address] [place], [address] T PROT 7.2 g/dL Normal 5.9-8.4 [facility] Comment on above: Performed By: #### L 500.4050, L506.1000, L100.0100, L501.9985 #### [facility] [address] [place], [address] Urea nitrogen [Mass/Vol] 20 mg/dL High 4-19 [facility] Comment on above: Performed By: #### L 500.4050, L506.1000, L100.0100, L501.9985 #### [facility] [address] [place], [address] Folate [Moles/volume] in Ser um or PlasmaOrdered By: Missael Lomeli on 10-10-2024 Folate [Moles/Vol] 7.20 ng/mL 4.60-34.80 [facility] Comment on above: Hemolysis, Results w ill be affected, Requires Recollection. Folates,Serum (Folic Acid)on 10-10-2024 FOLATES,SERUM 7.20 ng/mL Normal 4.60-34.80 [facility] Comment on above: Order Comment: 134 Result Comment: Hemo lysis, Results will be affected, Requires Recollection. Performed By: #### L 500.4050, L506.1000, L100.0100, L501.9985 #### [facility] [address] [place], [address] Hemoglobin A1con 10-10-2024 HbA1c (Bld) [Mass fraction] 7.2 % High <=5.6 [facility] Comment on above: Result Comment: Norm al < 5.7 % Prediabetic 5.7 - 6.4 % Diabetic >or= 6.5 % Please note range changes. Performed By: #### L 506.1000, L100.0100, L501.9985, L500.4050 #### [facility] [address] [place], [address] LDL calc ser/plasOrdered By: Missael Lomeli on 10-10-2024 Cholesterol in LDL [Mass/Vol] 31 mg/dL [facility] Comment on above: Taytemugam=589-038 m g/dL & Higher Zkry=515 mg/dL or greater Laboratory - Chemistry and C hemistry - challengeOrdered By: Missael Lomeli on 10-10-2024 AST [Catalytic activity/Vol] 37 U/L High <32 [facility] Comment on above: Hemolysis present, R esults could be affected. Lipid Profileon 10-10-2024 CHOL:HDL 1.84 Normal [facility] Comment on above: Performed By: #### L 506.1000, L100.0100, L501.9985, L500.4050 #### [facility] [address] [place], [address] Cholesterol [Mass/Vol] 103 mg/dL Normal <=200 [facility] Comment on above: Result Comment: Chol esterol level, Desirable <200 mg/dL Borderline high cholesterol 200-239 mg/dL High cholesterol >=240 mg/dL Recommendations of the NCEP Adult Treatment Panel for the following risk-cutoff thresholds for the [place] population. Performed By: #### L 506.1000, L100.0100, L501.9985, L500.4050 #### [facility] [address] [place], [address] Cholesterol in HDL [Mass/Vol] 56 mg/dL Normal [facility] Comment on above: Result Comment: Linda onal Cholesterol Education Program (NCEP) guidelines: <40 mg/dL: Low HDL-cholesterol (major risk factor for CHD) >= 60 mg/dL: High HDL-cholesterol (negative risk factor for CHD) HDL-cholesterol is affected by a number of factors, e.g. smoking, exercise, hormones, sex and age. Performed By: #### L 506.1000, L100.0100, L501.9985, L500.4050 #### [facility] [address] [place], [address] Cholesterol in LDL [Mass/Vol] 31 mg/dL Normal [facility] Comment on above: Result Comment: Bord gpizqv=964-551 mg/dL Higher Ojrd=407 mg/dL or greater Performed By: #### L 506.1000, L100.0100, L501.9985, L500.4050 #### [facility] [address] [place], [address] Cholesterol in VLDL [Mass/Vol] 16 mg/dL Normal 5-40 [facility] Comment on above: Performed By: #### L 506.1000, L100.0100, L501.9985, L500.4050 #### [facility] [address] [place], [address] Triglyceride [Mass/Vol] 82 mg/dL Normal [facility] Comment on above: Result Comment: The drugs N-Acetylcysteine and Metamizole may falsely depress this assay. Normal range: <150 mg/dL Borderline High: 150-199 mg/dL High: 200-499 mg/dL Very High: >500 mg/dL Performed By: #### L 506.1000, L100.0100, L501.9985, L500.4050 #### [facility] [address] [place], [address] Phosphoruson 10-10-2024 Phosphate [Mass/Vol] 3.3 mg/dL Normal 2.7-4.[address] [facility] Comment on above: Performed By: #### L 506.1000, L100.0100, L501.9985, L500.4050 #### [facility] [address] [place], [address] Screening total cholesterol/ high density lipoprotein (HDL) cholesterol ratioOrdered By: Missael Lomeli on 10-10-2024 Cholesterol.total/Cho lesterol in HDL [Mass ratio] 1.84 {ratio} [facility] Serum globulin measurementOr dered By: Missael Lomeli on 10-10-2024 Globulin (S) [Mass/Vol] 3.7 g/dL 2.2-4.2 [facility] Serum or plasma alanine burnette otransferase (ALT) measurementOrdered By: Missael Lomeli on 10-10-2024 ALT [Catalytic activity/Vol] 23 U/L <35 [facility] Serum or plasma albumin kim urement (mass/volume)Ordered By: Missael Lomeli on 10-10-2024 Albumin [Mass/Vol] 3.5 g/dL 3.4-4.8 [facility] Serum or plasma albumin/glob ulin mass ratioOrdered By: Missael Lomeli on 10-10-2024 Albumin/Globulin [Mass ratio] 1.0 {ratio} 0.9-2.4 [facility] Serum or plasma alkaline regina sphatase measurementOrdered By: Missael Lomeli on 10-10-2024 ALP [Catalytic activity/Vol] 122 U/L High 35-104 [facility] Serum or plasma cholesterol in HDL measurement (mass/volume)Ordered By: Missael Lomeli on 10-10-2024 Cholesterol in HDL [Mass/Vol] 56 mg/dL >40 [facility] Comment on above: National Cholesterol Education Program (NCEP) guidelines:<40 mg/dL: Low HDL-cholesterol (major risk factor for CHD)>= 60 mg/dL: High HDL-cholesterol (negative risk factor for CHD)HDL-cholesterol is affected by a number of factors, e.g. smoking, exercise, hormones, sex and age. Serum or plasma cholesterol measurement (mass/volume)Ordered By: Missael Lomeli on 10-10-2024 Cholesterol [Mass/Vol] 103 mg/dL <201 [facility] Comment on above: Cholesterol level, D esirable <200 mg/dLBorderline high cholesterol 200-239 mg/dLHigh cholesterol >=240 mg/dLRecommendations of the NCEP Adult Treatment Panel for the following risk-cutoff thresholds for the [place] population. Total proteinOrdered By: Enrrique Lomeli on 10-10-2024 Protein [Mass/Vol] 7.2 g/dL 5.9-8.4 [facility] Triglycerides measurementOrd ered By: Missael Lomeli on 10-10-2024 Triglyceride [Mass/Vol] 82 mg/dL <199 [facility] Comment on above: The drugs N-Acetylcy steine and Metamizole may falsely depress this assay. Normal range: <150 mg/dLBorderline High: 150-199 mg/dLHigh: 200-499 mg/dLVery High: >500 mg/dL Absolute lymphocyte countOrd ered By: Shayna Malhotra on 10-09-2024 Lymphocytes Auto (Unsp spec) [#/Vol] 0.97 10*3/uL 0.83-4.51 [facility] Absolute neutrophil countOrd ered By: Dany Richardson on 10-09-2024 Neutrophils (Bld) [#/Vol] 4.9 10*3/uL 2.0-7.7 [facility] Absolute neutrophil countOrd ered By: Shayna Malhotra on 10-09-2024 Neutrophils (Bld) [#/Vol] 4.4 10*3/uL 2.0-7.7 [facility] Alcohol, Blood (Medical)-Ser umon 10-09-2024 SERUM ETOH < 10.1 Normal <=10.0 [facility] Comment on above: Result Comment: This test is for medical purposes only. The legal definition of intoxication varies according to local law. Performed By: #### L 500.4050, L506.1000, L100.0100, L501.9985 #### [facility] [address] [place], [place], [address] Amorphous sediment detection in urine sediment by light microscopyOrdered By: Dany iRchardson on 10-09-2024 Amorphous sediment LM Ql (Urine sed) 1+ [facility] Amphetamine detection with 1 000 ng/mL as cutoffOrdered By: Missael Lomeli on 10-09-2024 Amphetamines Screen method >1000 ng/mL Ql (U) Negative < 200 ng/mL [facility] Anion gap in Serum or Plasma Ordered By: Dany Richardson on 10-09-2024 Anion gap [Moles/Vol] 11 mmol/L 10-18 [facility] Anion gap in Serum or Plasma Ordered By: Shayna Malhotra on 10-09-2024 Anion gap [Moles/Vol] 12 mmol/L 10-18 [facility] Automated lymphocyte count a s percentage of total leukocytesOrdered By: Shayna Malhotra on 10-09-2024 Lymphocytes/100 WBC Auto (Unsp spec) 16.1 % Low 19-41 [facility] BUN/creatinine ratioOrdered By: Dany Richardson on 10-09-2024 Urea nitrogen/Creatinine [Mass ratio] 26.6 mg/mg High 10-20 [facility] BUN/creatinine ratioOrdered By: Shayna Malhotra on 10-09-2024 Urea nitrogen/Creatinine [Mass ratio] 25.9 mg/mg High 10-20 [facility] Basophil percentageOrdered B y: Dany Richardson on 10-09-2024 Basophils/100 WBC (Bld) 0.4 % 0-1 [facility] Basophil percentageOrdered B y: Shayna Malhotra on 10-09-2024 Basophils/100 WBC (Bld) 0.5 % 0-1 [facility] Bilirubin Test strip Ql (U)O rdered By: Dany Richardson on 10-09-2024 Bilirubin Ql (U) Negative Negative [facility] Bilirubin, totalOrdered By: Dany Richardson on 10-09-2024 Bilirubin [Mass/Vol] 0.67 mg/dL 0.00-1.[address] [facility] Bilirubin, totalOrdered By: Shayna Malhotra on 10-09-2024 Bilirubin [Mass/Vol] 0.62 mg/dL 0.00-1.[address] [facility] CBC W/Diff, Automatedon Absolute Lymph 1.11 X10 3/uL Normal 0.83-4.51 [facility] Comment on above: Performed By: #### L 506.1000, L100.0100, L501.9985, L500.4050 #### [facility] [address] [place], [address] Absolute Neut 4.9 X10 3/uL Normal 2.0-7.7 [facility] Comment on above: Performed By: #### L 506.1000, L100.0100, L501.9985, L500.4050 #### [facility] [address] [place], [address] Basophils/100 WBC (Bld) 0.4 % Normal 0-1 [facility] Comment on above: Performed By: #### L 506.1000, L100.0100, L501.9985, L500.4050 #### [facility] [address] [place], [address] Eosinophils/100 WBC (Bld) 2.5 % Normal 0-5 [facility] Comment on above: Performed By: #### L 506.1000, L100.0100, L501.9985, L500.4050 #### [facility] [address] [place], [address] Erythrocyte distribution width (RBC) [Ratio] 15.9 % High 11.6-14.6 [facility] Comment on above: Performed By: #### L 506.1000, L100.0100, L501.9985, L500.4050 #### [facility] [address] [place], [address] Hematocrit (Bld) [Volume fraction] 40.8 % Normal 37-47 [facility] Comment on above: Performed By: #### L 506.1000, L100.0100, L501.9985, L500.4050 #### [facility] [address] [place], [address] Hemoglobin (Bld) [Mass/Vol] 13.5 g/dL Normal 12.0-15.0 [facility] Comment on above: Performed By: #### L 506.1000, L100.0100, L501.9985, L500.4050 #### [facility] [address] [place], [id number] IG% 0.400 Normal 0.0-0.9 [facility] Comment on above: Result Comment: IG% - Immature Granulocytes (promyelocytes, myelocytes and metamyelocytes) > 1% indicates that a LEFT SHIFT is Present. Performed By: #### L 506.1000, L100.0100, L501.9985, L500.4050 #### [facility] [address] [place], [address] Lymphocytes/100 WBC (Bld) 16.3 % Low 19-41 [facility] Comment on above: Performed By: #### L 506.1000, L100.0100, L501.9985, L500.4050 #### [facility] [address] [place], [address] MCH (RBC) [Entitic mass] 28.9 pg Normal 27.0-32.0 [facility] Comment on above: Performed By: #### L 506.1000, L100.0100, L501.9985, L500.4050 #### [facility] [address] [place], [address] MCHC (RBC) [Mass/Vol] 33.1 g/dL Normal 32-36 [facility] Comment on above: Performed By: #### L 506.1000, L100.0100, L501.9985, L500.4050 #### [facility] [address] [place], [address] MCV (RBC) [Entitic vol] 87.4 fL Normal 81-99 [facility] Comment on above: Performed By: #### L 506.1000, L100.0100, L501.9985, L500.4050 #### [facility] [address] [place], [address] Monocytes/100 WBC (Bld) 8.3 % Normal 0-10 [facility] Comment on above: Performed By: #### L 506.1000, L100.0100, L501.9985, L500.4050 #### [facility] [address] [place], [address] Neutrophils/100 WBC (Bld) 72.1 % High 47-70 [facility] Comment on above: Performed By: #### L 506.1000, L100.0100, L501.9985, L500.4050 #### [facility] [address] [place], [address] Nucleated RBC (Bld) [#/Vol] 0 10*3/uL Normal 0-5 [facility] Comment on above: Performed By: #### L 506.1000, L100.0100, L501.9985, L500.4050 #### [facility] [address] [place], [address] Platelet mean volume (Bld) [Entitic vol] 11.8 fL Normal 6.2-12.0 [facility] Comment on above: Performed By: #### L 506.1000, L100.0100, L501.9985, L500.4050 #### [facility] [address] [place], [address] Platelets (Bld) [#/Vol] 106 10*3/uL Low 150-450 [facility] Comment on above: Performed By: #### L 506.1000, L100.0100, L501.9985, L500.4050 #### [facility] [address] [place], [address] RBC (Bld) [#/Vol] 4.67 10*6/uL Normal 4.2-5.4 [facility] Comment on above: Performed By: #### L 506.1000, L100.0100, L501.9985, L500.4050 #### [facility] [address] [place], [address] RDW SD 51.0 fl High 35.1-43.9 [facility] Comment on above: Performed By: #### L 506.1000, L100.0100, L501.9985, L500.4050 #### [facility] [address] [place], [address] WBC (Bld) [#/Vol] 6.8 10*3/uL Normal 4.4-11.0 [facility] Comment on above: Performed By: #### L 506.1000, L100.0100, L501.9985, L500.4050 #### [facility] [address] [place], [address] Absolute Lymph 0.97 X10 3/uL Normal 0.83-4.51 [facility] Comment on above: Order Comment: 134 Performed By: #### L 500.4050, L506.1000, L100.0100, L501.9985 #### [facility] [address] [place], [address] Absolute Neut 4.4 X10 3/uL Normal 2.0-7.7 [facility] Comment on above: Order Comment: 134 Performed By: #### L 500.4050, L506.1000, L100.0100, L501.9985 #### [facility] [address] [place], [address] Basophils/100 WBC (Bld) 0.5 % Normal 0-1 [facility] Comment on above: Order Comment: 134 Performed By: #### L 500.4050, L506.1000, L100.0100, L501.9985 #### [facility] [address] [place], [address] Eosinophils/100 WBC (Bld) 1.2 % Normal 0-5 [facility] Comment on above: Order Comment: 134 Performed By: #### L 500.4050, L506.1000, L100.0100, L501.9985 #### [facility] [address] [place], [address] Erythrocyte distribution width (RBC) [Ratio] 15.7 % High 11.6-14.6 [facility] Comment on above: Order Comment: 134 Performed By: #### L 500.4050, L506.1000, L100.0100, L501.9985 #### [facility] [address] [place], [address] Hematocrit (Bld) [Volume fraction] 40.9 % Normal 37-47 [facility] Comment on above: Order Comment: 134 Performed By: #### L 500.4050, L506.1000, L100.0100, L501.9985 #### [facility] [address] [place], [address] Hemoglobin (Bld) [Mass/Vol] 13.5 g/dL Normal 12.0-15.0 [facility] Comment on above: Order Comment: 134 Performed By: #### L 500.4050, L506.1000, L100.0100, L501.9985 #### [facility] [address] [place], [address] IG% 0.300 Normal 0.0-0.9 [facility] Comment on above: Order Comment: 134 Result Comment: IG% - Immature Granulocytes (promyelocytes, myelocytes and metamyelocytes) > 1% indicates that a LEFT SHIFT is Present. Performed By: #### L 500.4050, L506.1000, L100.0100, L501.9985 #### [facility] [address] [place], [address] Lymphocytes/100 WBC (Bld) 16.1 % Low 19-41 [facility] Comment on above: Order Comment: 134 Performed By: #### L 500.4050, L506.1000, L100.0100, L501.9985 #### [facility] [address] [place], [address] MCH (RBC) [Entitic mass] 28.8 pg Normal 27.0-32.0 [facility] Comment on above: Order Comment: 134 Performed By: #### L 500.4050, L506.1000, L100.0100, L501.9985 #### [facility] [address] [place], [address] MCHC (RBC) [Mass/Vol] 33.0 g/dL Normal 32-36 [facility] Comment on above: Order Comment: 134 Performed By: #### L 500.4050, L506.1000, L100.0100, L501.9985 #### [facility] [address] [place], [address] MCV (RBC) [Entitic vol] 87.4 fL Normal 81-99 [facility] Comment on above: Order Comment: 134 Performed By: #### L 500.4050, L506.1000, L100.0100, L501.9985 #### [facility] [address] [place], [address] Monocytes/100 WBC (Bld) 8.4 % Normal 0-10 [facility] Comment on above: Order Comment: 134 Performed By: #### L 500.4050, L506.1000, L100.0100, L501.9985 #### [facility] [address] [place], [address] Neutrophils/100 WBC (Bld) 73.5 % High 47-70 [facility] Comment on above: Order Comment: 134 Performed By: #### L 500.4050, L506.1000, L100.0100, L501.9985 #### [facility] [address] [place], [address] Nucleated RBC (Bld) [#/Vol] 0 10*3/uL Normal 0-5 [facility] Comment on above: Order Comment: 134 Performed By: #### L 500.4050, L506.1000, L100.0100, L501.9985 #### [facility] [address] [place], [address] Platelet mean volume (Bld) [Entitic vol] 10.8 fL Normal 6.2-12.0 [facility] Comment on above: Order Comment: 134 Performed By: #### L 500.4050, L506.1000, L100.0100, L501.9985 #### [facility] [address] [place], [address] Platelets (Bld) [#/Vol] 107 10*3/uL Low 150-450 [facility] Comment on above: Order Comment: 134 Performed By: #### L 500.4050, L506.1000, L100.0100, L501.9985 #### [facility] [address] [place], [address] RBC (Bld) [#/Vol] 4.68 10*6/uL Normal 4.2-5.4 [facility] Comment on above: Order Comment: 134 Performed By: #### L 500.4050, L506.1000, L100.0100, L501.9985 #### [facility] [address] [place], [address] RDW SD 50.2 fl High 35.1-43.9 [facility] Comment on above: Order Comment: 134 Performed By: #### L 500.4050, L506.1000, L100.0100, L501.9985 #### [facility] [address] [place], [address] WBC (Bld) [#/Vol] 6.0 10*3/uL Normal 4.4-11.0 [facility] Comment on above: Order Comment: 134 Performed By: #### L 500.4050, L506.1000, L100.0100, L501.9985 #### [facility] [address] [place], [address] CRPon 10-09-2024 C-REACTIVE PROT 5.92 mg/L High 0.0-3.0 [facility] Comment on above: Performed By: #### L 500.4050, L506.1000, L100.0100, L501.9985 #### [facility] [address] [place], [address] Carbon dioxide, total [Moles /volume] in Central venous bloodOrdered By: Dany Richardson on 10-09-2024 CO2 [Moles/Vol] 21.0 mmol/L 21.0-32.0 [facility] Carbon dioxide, total [Moles /volume] in Central venous bloodOrdered By: Shayna Malhotra on 10-09-2024 CO2 [Moles/Vol] 22.6 mmol/L 21.0-32.0 [facility] Chloride assayOrdered By: Nolan Richardson on 10-09-2024 Chloride [Moles/Vol] 106 mmol/L 98-[address] [facility] Chloride assayOrdered By: Maryanne Malhotra on 10-09-2024 Chloride [Moles/Vol] 104 mmol/L 98-[address] [facility] Comprehensive Metabolic Prof ilon 10-09-2024 Albumin [Mass/Vol] 3.8 g/dL Normal 3.4-4.8 [facility] Comment on above: Performed By: #### L 506.1000, L100.0100, L501.9985, L500.4050 #### [facility] [address] [place], [address] Albumin/Globulin [Mass ratio] 0.8 {ratio} Low 0.9-2.4 [facility] Comment on above: Performed By: #### L 506.1000, L100.0100, L501.9985, L500.4050 #### [facility] [address] [place], [address] ALK PHOS 135 U/L High 35-104 [facility] Comment on above: Performed By: #### L 506.1000, L100.0100, L501.9985, L500.4050 #### [facility] [address] [place], [address] ALT [Catalytic activity/Vol] 23 U/L Normal <=34 [facility] Comment on above: Performed By: #### L 506.1000, L100.0100, L501.9985, L500.4050 #### [facility] [address] [place], [address] AST [Catalytic activity/Vol] 40 U/L High <=31 [facility] Comment on above: Result Comment: Hemo lysis present, Results??could be affected. ?? Performed By: #### L 506.1000, L100.0100, L501.9985, L500.4050 #### [facility] [address] [place], [address] Bilirubin [Mass/Vol] 0.67 mg/dL Normal 0.00-1.[address] [facility] Comment on above: Performed By: #### L 506.1000, L100.0100, L501.9985, L500.4050 #### [facility] [address] [place], [address] BUN/CRE 26.6 RATIO High 10-20 [facility] Comment on above: Performed By: #### L 506.1000, L100.0100, L501.9985, L500.4050 #### [facility] [address] [place], [address] Calcium [Mass/Vol] 9.7 mg/dL Normal 7.6-11.0 [facility] Comment on above: Performed By: #### L 506.1000, L100.0100, L501.9985, L500.4050 #### [facility] [address] [place], [address] Chloride [Moles/Vol] 106 mmol/L Normal 98-[address] [facility] Comment on above: Performed By: #### L 506.1000, L100.0100, L501.9985, L500.4050 #### [facility] [address] [place], [address] CO2 [Moles/Vol] 21.0 mmol/L Normal 21.0-32.0 [facility] Comment on above: Performed By: #### L 506.1000, L100.0100, L501.9985, L500.4050 #### [facility] [address] [place], [address] Creatinine [Mass/Vol] 0.88 mg/dL Normal 0.70-1.20 [facility] Comment on above: Performed By: #### L 506.1000, L100.0100, L501.9985, L500.4050 #### [facility] [address] [place], [address] ECRCL 81.27 ml/min Normal 50-250 [facility] Comment on above: Performed By: #### L 506.1000, L100.0100, L501.9985, L500.4050 #### [facility] [address] [place], [address] GAP 11 Normal 5-15 [facility] Comment on above: Performed By: #### L 506.1000, L100.0100, L501.9985, L500.4050 #### [facility] [address] [place], [address] GFR/1.73 sq M.predicted among non-blacks MDRD (S/P/Bld) [Vol rate/Area] 70 mL/min/{1.73_m2} Normal >60 [facility] Comment on above: Result Comment: mL/m in/1.73m2 CKD-EPI Creatinine Equation (2020) Performed By: #### L 506.1000, L100.0100, L501.9985, L500.4050 #### [facility] [address] [place], [address] Globulin (S) [Mass/Vol] 4.6 g/dL High 2.2-4.2 [facility] Comment on above: Performed By: #### L 506.1000, L100.0100, L501.9985, L500.4050 #### [facility] [address] [place], [address] Glucose [Mass/Vol] 138 mg/dL High 70-99 [facility] Comment on above: Performed By: #### L 506.1000, L100.0100, L501.9985, L500.4050 #### [facility] [address] [place], [address] Potassium [Moles/Vol] 4.5 mmol/L Normal 3.3-5.1 [facility] Comment on above: Result Comment: Hemo lysis present, Results??could be affected. ?? Performed By: #### L 506.1000, L100.0100, L501.9985, L500.4050 #### [facility] [address] [place], [address] Sodium [Moles/Vol] 138 mmol/L Normal 133-145 [facility] Comment on above: Performed By: #### L 506.1000, L100.0100, L501.9985, L500.4050 #### [facility] [address] [place], [address] T PROT 8.4 g/dL Normal 5.9-8.4 [facility] Comment on above: Performed By: #### L 506.1000, L100.0100, L501.9985, L500.4050 #### [facility] [address] [place], [address] Urea nitrogen [Mass/Vol] 23 mg/dL High 4-19 [facility] Comment on above: Performed By: #### L 506.1000, L100.0100, L501.9985, L500.4050 #### [facility] [address] [place], [address] Albumin [Mass/Vol] 4.0 g/dL Normal 3.4-4.8 [facility] Comment on above: Order Comment: 134 Performed By: #### L 500.4050, L506.1000, L100.0100, L501.9985 #### [facility] [address] [place], [address] Albumin/Globulin [Mass ratio] 0.8 {ratio} Low 0.9-2.4 [facility] Comment on above: Order Comment: 134 Performed By: #### L 500.4050, L506.1000, L100.0100, L501.9985 #### [facility] [address] [place], [address] ALK PHOS 148 U/L High 35-104 [facility] Comment on above: Order Comment: 134 Performed By: #### L 500.4050, L506.1000, L100.0100, L501.9985 #### [facility] [address] [place], [address] ALT [Catalytic activity/Vol] 26 U/L Normal <=34 [facility] Comment on above: Order Comment: 134 Performed By: #### L 500.4050, L506.1000, L100.0100, L501.9985 #### [facility] [address] [place], [address] AST [Catalytic activity/Vol] 37 U/L High <=31 [facility] Comment on above: Order Comment: 134 Performed By: #### L 500.4050, L506.1000, L100.0100, L501.9985 #### [facility] [address] [place], [address] Bilirubin [Mass/Vol] 0.62 mg/dL Normal 0.00-1.[address] [facility] Comment on above: Order Comment: 134 Performed By: #### L 500.4050, L506.1000, L100.0100, L501.9985 #### [facility] [address] [place], [address] BUN/CRE 25.9 RATIO High 10-20 [facility] Comment on above: Order Comment: 134 Performed By: #### L 500.4050, L506.1000, L100.0100, L501.9985 #### [facility] [address] [place], [address] Calcium [Mass/Vol] 9.6 mg/dL Normal 7.6-11.0 [facility] Comment on above: Order Comment: 134 Performed By: #### L 500.4050, L506.1000, L100.0100, L501.9985 #### [facility] [address] [place], [address] Chloride [Moles/Vol] 104 mmol/L Normal 98-[address] [facility] Comment on above: Order Comment: 134 Performed By: #### L 500.4050, L506.1000, L100.0100, L501.9985 #### [facility] [address] [place], [address] CO2 [Moles/Vol] 22.6 mmol/L Normal 21.0-32.0 [facility] Comment on above: Order Comment: 134 Performed By: #### L 500.4050, L506.1000, L100.0100, L501.9985 #### [facility] [address] [place], [address] Creatinine [Mass/Vol] 0.82 mg/dL Normal 0.70-1.20 [facility] Comment on above: Order Comment: 134 Performed By: #### L 500.4050, L506.1000, L100.0100, L501.9985 #### [facility] [address] [place], [address] GAP 12 Normal 5-15 [facility] Comment on above: Order Comment: 134 Performed By: #### L 500.4050, L506.1000, L100.0100, L501.9985 #### [facility] [address] [place], [address] GFR/1.73 sq M.predicted among non-blacks MDRD (S/P/Bld) [Vol rate/Area] 76 mL/min/{1.73_m2} Normal >60 [facility] Comment on above: Order Comment: 134 Result Comment: mL/m in/1.73m2 CKD-EPI Creatinine Equation (2020) Performed By: #### L 500.4050, L506.1000, L100.0100, L501.9985 #### [facility] [address] [place], [address] Globulin (S) [Mass/Vol] 4.8 g/dL High 2.2-4.2 [facility] Comment on above: Order Comment: 134 Performed By: #### L 500.4050, L506.1000, L100.0100, L501.9985 #### [facility] [address] [place], [address] Glucose [Mass/Vol] 173 mg/dL High 70-99 [facility] Comment on above: Order Comment: 134 Performed By: #### L 500.4050, L506.1000, L100.0100, L501.9985 #### [facility] [address] [place], [address] Potassium [Moles/Vol] 4.2 mmol/L Normal 3.3-5.1 [facility] Comment on above: Order Comment: 134 Performed By: #### L 500.4050, L506.1000, L100.0100, L501.9985 #### [facility] [address] [place], [address] Sodium [Moles/Vol] 138 mmol/L Normal 133-145 [facility] Comment on above: Order Comment: 134 Performed By: #### L 500.4050, L506.1000, L100.0100, L501.9985 #### [facility] [address] [place], [address] T PROT 8.9 g/dL High 5.9-8.4 [facility] Comment on above: Order Comment: 134 Performed By: #### L 500.4050, L506.1000, L100.0100, L501.9985 #### [facility] [address] [place], [address] Urea nitrogen [Mass/Vol] 21 mg/dL High 4-19 [facility] Comment on above: Order Comment: 134 Performed By: #### L 500.4050, L506.1000, L100.0100, L501.9985 #### [facility] [address] [place], [address] Emergency Department Summary on 10-09-2024 Emergency Department Summary [facility] Records Department [address] [place] [address] Emergency Department Summary 10/09/24 MR#: [id number] Acct: [id number] Name: VIDA NINA Rep #: [id number] : 1950 73 From: Dany Richardson MD PCP: Dr. Shayna Malhotra MD Status:REG ER Location: ED HPI History of Present Illness Chief Complaint: Lower Extremity Injury Narrative Narrative: 73-year-old female states that she had pins placed in her left foot approximately 15 years ago [place] after breaking her heel. She is currently in [facility]. She states for the last 2 weeks she has been having increasing foot pain. She states that on Tuesday, probably of the last week, she had x-rays obtained at the [facility]. She went and saw Dr. Shayna Malhotra on Tuesday, but he did not have the x-ray results. She states that she is having a lot of pain in her left heel that is worse with weightbearing and walking and palpation. She states that it feels as if she is having a baby out of her left heel. [facility] Medical History Obesity Anxiety Cancer Anxiety Diabetes Former smoker Hypertension DVT (deep venous thrombosis) Bipolar 1 disorder Hyperlipidemia Vitamin D deficiency History of seizures history of broken heel left foot History of recurrent UTIs Home Medications ???Medication ???Instructions ???Recorded ???Last Taken ???Type lactobacillus combination no.9 4 4,000 mmu cells PO DAILY 06/25/20 Unknown History billion cell capsule (Adult 50 Plus Probiotic) acetaminophen 325 mg tablet 650 mg PO Q4H PRN PRN Pain, fever 07/30/21 Unknown History (Tylenol) guaifenesin 100 mg/5 mL oral liquid 200 mg PO Q4H PRN cough 2 Unknown History ergocalciferol (vitamin D2) 1,250 50,000 unit PO Q14D suuplement Unknown History mcg (50,000 unit) capsule triamcinolone acetonide 0.1 % 1 applic topical Q12H PRN PRN Rash 09/20/21 Unknown History topical cream insulin lispro 100 unit/mL See Protocol subcut TIDAC diabetes 11/22/21 Unknown History subcutaneous pen (Humalog KwikPen (U-100) Insulin) lamotrigine 100 mg tablet 100 mg PO DAILY seizures 11/22/21 Unknown History lisinopril 5 mg tablet 5 mg PO QDAY BP 11/22/21 Unknown H istory miconazole nitrate 2 % topical 1 applic topical BID Check with Unknown History powder [facility] Unknown History Lite Strips) blood-[facility]21 Unknown History Lite Meter kit) [facility] Unknown History Lancets) nystatin 100,000 unit/gram topical 1 applic topical TID #0 grams Unknown Rx powder ([facility]) quetiapine 100 mg tablet 300 mg (3 x 100 mg) PO BID #0 tabs 11/24/21 Unknown Rx aspirin 81 mg chewable tablet 81 mg PO DAILY 05/06/22 Unknown Hi story empagliflozin 10 mg tablet 10 mg PO DAILY 08/17/22 Unknown Hi story (Jardiance) atorvastatin 40 mg tablet 40 mg PO QPM 11/24/22 Unknown Hist ory dulaglutide 3 mg/0.5 mL 3 mg subcut QWEEK 11/24/22 Unknown History subcutaneous pen injector (Trulicity) clonazepam 0.5 mg tablet 0.5 mg PO Q12H panic attack(s) 11/28 Unknown History insulin glargine 100 unit/mL (3 40 unit subcut BID 10/09/24 Unknow n History mL) subcutaneous pen (Lantus Solostar U-100 Insulin) Allergy/AdvReac Type Severity Reaction Status Date / Time ciprofloxacin (From [facility]) Allergy Mild Anaphylaxis Verified 10/09/24 16:55 ciprofloxacin HCl (From Allergy Anaphylaxis Verified 10/09/24 16:55 Cipro) Iodinated Contrast Media Allergy Rash Verified 10/09/24 16:55 (Iodinated Contrast Media - IV Dye) paliperidone (From Invega) Allergy Rash Verified 10/09/24 16:55 Penicillins Allergy RASH AND Verified 10/09/24 16:55 ITCHING red (food color) Allergy Hives Verified 10/09/24 16:55 red dye Allergy Hives Verified 10/09/24 16:55 Sulfa (Sulfonamide Allergy RASH AND Verified 10/09/24 16:55 Antibiotics) ITCHING metformin AdvReac Nausea/Vom/ Verified 10/09/24 16:55 Diarrhea shellfish derived AdvReac Nausea/Vom/ Verified 10/09/24 16:55 Diarrhea Family History Mother Diabetes Hypertension Heart disease Thyroid disorder Father CVA (cerebral vascular accident) Diabetes Brother Parkinson disease Thyroid disorder Lupus Alcoholism Blood clots in brain Grandfather Heart disease Asthma Social History Smoking Status: Former smoker Tobacco: How many years used: 45 how long ago did patient quit smokin11/2016 substance use type: does not use what type of physical activity do you participate in: none ROS ROS ED ROS Narrative (more content not included)... Normal [facility] Eosinophil percentageOrdered By: Dany Richardson on 10-09-2024 Eosinophils/100 WBC (Bld) 2.5 % 0-5 [facility] Eosinophil percentageOrdered By: Shayna Malhotra on 10-09-2024 Eosinophils/100 WBC (Bld) 1.2 % 0-5 [facility] Epithelial cells.squamous LM Ql (Urine sed)Ordered By: Dany Richardson on 10-09-2024 Epithelial cells.squamous LM.HPF (Urine sed) [#/Area] 0 /[HPF] 5-10 [facility] Erythrocyte Sed Rateon 10-09 SED RATE 49 mm/hr High 0-30 [facility] Comment on above: Performed By: #### L 500.4050, L506.1000, L100.0100, L501.9985 #### [facility] [address] [place], [address] Erythrocyte distribution wid th (RBC) [Ratio]Ordered By: Dany Richardson on 10-09-2024 Erythrocyte distribution width (RBC) [Entitic vol] 51.0 fL High 35.1-43.9 [facility] Erythrocyte distribution wid th (RBC) [Ratio]Ordered By: Shayna Malhotra on 10-09-2024 Erythrocyte distribution width (RBC) [Entitic vol] 50.2 fL High 35.1-43.9 [facility] Erythrocyte distribution wid th ratioOrdered By: Dany Richardson on 10-09-2024 Erythrocyte distribution width (RBC) [Ratio] 15.9 % High 11.6-14.6 [facility] Erythrocyte distribution wid th ratioOrdered By: Shayna Malhotra on 10-09-2024 Erythrocyte distribution width (RBC) [Ratio] 15.7 % High 11.6-14.6 [facility] Erythrocyte distribution wid th standard deviationOrdered By: Shayna Malhotra on 10-09-2024 Erythrocyte distribution width (RBC) [Ratio] 50.2 fl High 35.1-43.9 [facility] Erythrocyte sedimentation ra teOrdered By: Missael Lomeli on 10-09-2024 ESR (Bld) [Velocity] 49 mm/h High 0-[address] [facility] Estimation of creatinine silvana aranceOrdered By: Dany Richardson on 10-09-2024 Estimated Creatinine Clearance Calc 81.27 ml/min 50-250 [facility] Extremity Lower without Cont raon 10-09-2024 Extremity Lower without Contra [facility] Imaging Services [address] [place] [address] Extremity Lower without Contra MR#: [id number] Acct: [id number] Name: VIDA NINA Breann Rep #: [id number] : 1950 F 73 From: Saul Sanchez MD PCP: Dr. Shayna Malhotra MD Status: ADM IN Study: Extremity Lower without Contra Date of Exam: 0 10/09/24 Exam# [id number] Ordering Dr: Missael Hernandez DO PROCEDURE: EXTREMITY LOWER WITHOUT CONTRA 10/09/2024 REASON FOR EXAM: SEVERE LEFT HEEL PAIN. TECHNIQUE: Axial CT images of the left ankle obtained without intravenous contrast. Coronal and Sagittal reconstruction series were provided. One or more dose reduction techniques were used (e.g., Automated exposure control, adjustment of the mA and/or kV according to patient size, use of iterative reconstruction technique RADIATION DOSE SUMMARY: CTDlvol: 15.35 mGy DLP: 534.14 mGycm COMPARISON: None available FINDINGS: Lateral calcaneal plate with screws and cannulated screw appears intact. No fracture identified. No dislocation. Moderate posterior subtalar and mild anterior subtalar joint osteoarthrosis. No osseous destruction or periosteal reaction identified. There is marked soft tissue subcutaneous swelling, edema which appears greater anterior, medial and posteriorly, clinically correlate with numerous soft tissue calcifications that can be seen with venous stasis. No definite deep fascial or muscular edema identified by CT. No soft tissue gas identified. CT/Extremity Lower without Contra IMPRESSION: Lateral calcaneal plate with screws and cannulated screw appears intact. No fracture identified. No dislocation. Moderate posterior subtalar and mild anterior subtalar joint osteoarthrosis. No osseous destruction or periosteal reaction identified. There is marked soft tissue subcutaneous swelling, edema which appears greater anterior, medial and posteriorly, clinically correlate with numerous soft tissue calcifications that can be seen with venous stasis. No definite deep fascial or muscular edema identified by CT. No soft tissue gas identified. Findings discussed by myself by phone with Dr. Hernandez at 2:20 a.m. 10/10/2024 Reading Location: [facility] CC: Dr. Missael Hernandez DO; Dr. Shayna Malhotra MD Farm Equipment Technician: Signed Normal [facility] Foot min 3 Viewson 5 Foot min 3 Views [facility] Imaging Services [address] [place] [address] Foot min 3 Views MR#: [id number] Acct: [id number] Name: VIDA NINA Rep #: [id number] : 1950 F 73 From: Alok Jiménez MD PCP: Dr. Shayna Malhotra MD Status: REG ER Study: Foot min 3 Views Date of Exam: 10/09/24 Exam# [id number] Ordering Dr: Dany Richardson MD EXAM: LEFT FOOT, 3 VIEWS CLINICAL HISTORY: PAIN COMPARISON: NO RELEVANT PRIOR. TECHNIQUE: AP, LATERAL, AND OBLIQUE. FINDINGS: A compression plate and screws fixing an old fracture of the calcaneus. Degenerative changes of the talar calcaneal and talonavicular joint. Soft tissue swelling. RAD/Foot min 3 Views IMPRESSION: Status post internal fixation of calcaneal fracture. Mild degenerative arthritic changes. Soft tissue swelling. Reading Location: [facility] CC: Dr. Dany Richardson MD; Dr. Shayna Malhotra MD Farm Equipment Technician: Signed Normal [facility] GFR/1.73 sq M.predicted saida g non-blacks MDRD (S/P/Bld) [Vol rate/Area]Ordered By: Dany Richardson on 10-09-2024 Estimated GFR (MDRD) Non-Af Amer 70 >60 [facility] Comment on above: mL/min/1.73m2 CKD-EP I Creatinine Equation (2020) GFR/1.73 sq M.predicted saida g non-blacks MDRD (S/P/Bld) [Vol rate/Area]Ordered By: Shayna Malhotra on 10-09-2024 Estimated GFR (MDRD) Non-Af Amer 76 >60 [facility] Comment on above: mL/min/1.73m2 CKD-EP I Creatinine Equation (2020) Glomerular filtration rate ( GFR) estimation/1.73 sq m using serum, plasma, or whole bOrdered By: Shayna Malhotra on 10-09-2024 GFR/1.73 sq M.predicted among non-blacks MDRD (S/P/Bld) [Vol rate/Area] 76 mL/min/{1.73_m2} >60 [facility] Comment on above: mL/min/1.73m2 CKD-EP I Creatinine Equation (2020) Glucose Ql (U)Ordered By: Nolan Richardson on 10-09-2024 Glucose (U) [Mass/Vol] 1000 mg/dL High Normal [facility] H AND P Exam - [facility] 10-09-2024 H&P Exam - Hospitalist [facility] Medical Records Department [address] [place] [address] H P Exam - Hospitalist 10/09/242118 MR#: [id number] Acct: [id number] Name: VIDA NINA Rep #: [id number] : 1950 73 From: Missael Hernandez DO PCP: Dr. Shayna Malhotra MD Status:ADM IN Location[place] [facility] [id number] HPI - General General Date of Admission: 10/09/24 Date of Service: 10/09/24 Chief Complaint: Left Heel Pain, Poor Hygiene and Unable to Care for Herself. HPI Narrative VIDA NINA, is a 73 F with a past medical history of essential hypertension; on lisinopril, hyperlipidemia; on atorvastatin, morbid obesity; with a BMI of 49.2 this admission, former tobacco abuse times 45 years (quit 2016), DM-2; of unknown control on dulaglutide weekly, empagliflozin daily, insulin glargine 40 units SQ twice daily and insulin lispro 3 times daily AC, history of DVT; not on anticoagulation, history of seizures; on lamotrigine, bipolar 1 disorder; with panic attacks on quetiapine and clonazepam twice daily, history of vitamin D deficiency; on ergocalciferol, history of calcaneal fracture of the Left foot; s/p ORIF ( 2009) and frequent UTIs who is currently residing in assisted living at [facility] presents to [facility] ER complaining of worsening Left heel pain with patient notably having poor hygiene and unable to care for herself. Ms. Nina reports her acute symptoms began 2 weeks prior to admission with increasing pain from her Left heel. She states the pain is severe and she feels like she is, having a baby out of her Left heel. She states her pain is made worse with weightbearing, walking and palpation and she speculated that she might have a severe case of plantar fasciitis. She states that on Sunday, September 08, 2024 she underwent x-rays after being seen by Dr. Shayna Malhotra with final results not available. To further complicate matters the patient's son, who usually helps care for her, is unable to help her currently because he is apparently incarcerated so she has not showered in several (5) days. She admits to darkened foul-smelling urine over the past few days. She was noted to have excoriated skin folds and extremely poor hygiene with ASSOCIATE SOFTWARE DEVELOPER having social work consulted and patient felt not to be able to take care of herself and assisted living she denies recent traumatic injury, increasing redness or significant swelling of the Left foot. There was also no report of fever, chills, nausea, vomiting, diarrhea, constipation, abdominal pain, chest pain, palpitations, heart racing, shortness of breath, headache or rash. In the ER she was noted to have a urinalysis grossly positive for Acute Cystitis; with microscopic hematuria complicated by Neuropathic Pain of the Left heel and Chronically Poor Hygiene with patient Unable to Care for Herself at assisted living so she was then admitted to the general medical floor for ongoing care for a stay that is expected to extend beyond 2 midnights. [facility] Medical History Obesity Anxiety Cancer Anxiety Diabetes Former smoker Hypertension DVT (deep venous thrombosis) Bipolar 1 disorder Hyperlipidemia Vitamin D deficiency History of seizures history of broken heel left foot History of recurrent UTIs Home Medications ???Medication ???Instructions ???Recorded ???Last Taken ???Type lactobacillus combination no.9 4 4,000 mmu cells PO DAILY 06/25/20 Unknown History billion cell capsule (Adult 50 Plus Probiotic) acetaminophen 325 mg tablet 650 mg PO Q4H PRN PRN Pain, fever 07/30/21 Unknown History (Tylenol) guaifenesin 100 mg/5 mL oral liquid 200 mg PO Q4H PRN cough 2 Unknown History ergocalciferol (vitamin D2) 1,250 50,000 unit PO Q14D suuplement Unknown History mcg (50,000 unit) capsule triamcinolone acetonide 0.1 % 1 applic topical Q12H PRN PRN Rash 09/20/21 Unknown History topical cream insulin lispro 100 unit/mL See Protocol subcut TIDAC diabetes 11/22/21 Unknown History subcutaneous pen (Humalog KwikPen (U-100) Insulin) lamotrigine 100 mg tablet 100 mg PO DAILY seizures 11/22/21 Unknown History lisinopril 5 mg tablet 5 mg PO QDAY BP 11/22/21 Unknown H istory miconazole nitrate 2 % topical 1 applic topical BID Check with Unknown History powder [facility] Unknown History Lite Strips) blood-glucose [facility]21 Unknown History Lite Meter kit) [facility] Unknown History Lancets) nystatin 100,000 unit/gram topical 1 applic topical TID #0 grams Unknown Rx powder ([facility]) quetiapine 100 mg tablet 300 mg (3 x 100 mg) PO BID #0 tabs 11/24/21 Unknown Rx aspirin 81 mg chewable tablet 81 mg PO DAILY 05/06/22 Unknown Hi (more content not included)... Normal [facility] Hematocrit Auto (Bld) [Volum e fraction]Ordered By: Dany Richardson on 10-09-2024 Hematocrit (Bld) [Volume fraction] 40.8 % [address] [place] [address] Hematocrit Auto (Bld) [Volum e fraction]Ordered By: Shayna Malhotra on 10-09-2024 Hematocrit (Bld) [Volume fraction] 40.9 % [address] [place] [address] Hemoglobin A1con 10-09-2024 HbA1c (Bld) [Mass fraction] 7.2 % High <=5.6 [facility] Comment on above: Order Comment: 134 Result Comment: Norm al < 5.7 % Prediabetic 5.7 - 6.4 % Diabetic >or= 6.5 % Please note range changes. Performed By: #### L 500.4050, L506.1000, L100.0100, L501.9985 #### [facility] [address] [place], [place], [id number] Hemoglobin A1c percentageOrd ered By: Missael Lomeli on 10-09-2024 HbA1c (Bld) [Mass fraction] 7.2 % High <5.7 [facility] Comment on above: Normal < 5.7 % Predi abetic 5.7 - 6.4 % Diabetic >or= 6.5 % Please note range changes. Hemoglobin A1c percentageOrd ered By: Shayna Malhotra on 10-09-2024 HbA1c (Bld) [Mass fraction] 7.2 % High <5.7 [facility] Comment on above: Normal < 5.7 % Predi abetic 5.7 - 6.4 % Diabetic >or= 6.5 % Please note range changes. Hemoglobin measurementOrdere d By: Dany Richardson on 10-09-2024 Hemoglobin (Bld) [Mass/Vol] 13.5 g/dL 12.0-15.0 [facility] Hemoglobin measurementOrdere d By: Shayna Malhotra on 10-09-2024 Hemoglobin (Bld) [Mass/Vol] 13.5 g/dL 12.0-15.0 [facility] Immature granulocytes/100 WB C Auto (Bld)Ordered By: Dany Richardson on 10-09-2024 Immature granulocytes/100 WBC (Bld) 0.400 % 0.0-0.9 [facility] Comment on above: IG% - Immature Granu locytes (promyelocytes, myelocytes and metamyelocytes) > 1% indicates that a LEFT SHIFT is Present. Immature granulocytes/100 WB C Auto (Bld)Ordered By: Shayna Malhotra on 10-09-2024 Immature granulocytes/100 WBC (Bld) 0.300 % 0.0-0.9 [facility] Comment on above: IG% - Immature Granu locytes (promyelocytes, myelocytes and metamyelocytes) > 1% indicates that a LEFT SHIFT is Present. Ketones Test strip Ql (U)Ord ered By: Dany Richardson on 10-09-2024 Ketones Ql (U) Negative Negative [facility] Laboratory - Chemistry and C hemistry - challengeOrdered By: Dany Richardson on 10-09-2024 AST [Catalytic activity/Vol] 40 U/L High <32 [facility] Comment on above: Hemolysis present, R esults could be affected. Laboratory - Chemistry and C hemistry - challengeOrdered By: Shayna Malhotra on 10-09-2024 AST [Catalytic activity/Vol] 37 U/L High <32 [facility] Lymphocytes Auto (Unsp spec) [#/Vol]Ordered By: Dany Richardson on 10-09-2024 Lymphocytes (Bld) [#/Vol] 1.11 10*3/uL 0.83-4.51 [facility] Lymphocytes Auto (Unsp spec) [#/Vol]Ordered By: Shayna Malhotra on 10-09-2024 Lymphocytes (Bld) [#/Vol] 0.97 10*3/uL 0.83-4.51 [facility] Lymphocytes/100 WBC Auto (Un sp spec)Ordered By: Dany Richardson on 10-09-2024 Lymphocytes/100 WBC (Bld) 16.3 % Low 19-41 [facility] Lymphocytes/100 WBC Auto (Un sp spec)Ordered By: Shayna Malhotra on 10-09-2024 Lymphocytes/100 WBC (Bld) 16.1 % Low - [facility] MCV (mean corpuscular volume ) determinationOrdered By: Dany Richardson on 10-09-2024 MCV (RBC) [Entitic vol] 87.4 fL 81-99 [facility] MCV (mean corpuscular volume ) determinationOrdered By: Shayna Malhotra on 10-09-2024 MCV (RBC) [Entitic vol] 87.4 fL 81-99 [facility] Magnesiumon 10-09-2024 Magnesium [Mass/Vol] 2.1 mg/dL Normal 1.5-2.[address] [facility] Comment on above: Performed By: #### L 500.4050, L506.1000, L100.0100, L501.9985 #### [facility] [address] [place] [address], [id number] Mean corpuscular hemoglobin (MCH) determinationOrdered By: Dany Richardson on 10-09-2024 MCH (RBC) [Entitic mass] 28.9 pg 27.0-32.0 [facility] Mean corpuscular hemoglobin (MCH) determinationOrdered By: Shayna Malhotra on 10-09-2024 MCH (RBC) [Entitic mass] 28.8 pg 27.0-32.0 [facility] Mean corpuscular hemoglobin concentration (MCHC) determinationOrdered By: Dany Richardson on 10-09-2024 MCHC (RBC) [Mass/Vol] 33.1 g/dL - [facility] Mean corpuscular hemoglobin concentration (MCHC) determinationOrdered By: Shayna Malhotra on 10-09-2024 MCHC (RBC) [Mass/Vol] 33.0 g/dL -36 [facility] Mean platelet volume determi nationOrdered By: Dany Richardson on 10-09-2024 Platelet mean volume (Bld) [Entitic vol] 11.8 fL 6.2-12.0 [facility] Mean platelet volume determi nationOrdered By: Shayna Malhotra on 10-09-2024 Platelet mean volume (Bld) [Entitic vol] 10.8 fL 6.2-12.0 [facility] Microscopic analysis of urin e for red blood cells (RBC)Ordered By: Dany Richardson on 10-09-2024 Microscopic analysis of urine for red blood cells (RBC) 10-25 SEEN /hpf 0-5 [facility] Urine RBC 10-25 SEEN /hpf 0-5 [facility] Monocyte percentageOrdered B y: Dany Richardson on 10-09-2024 Monocytes/100 WBC (Bld) 8.3 % 0-10 [facility] Monocyte percentageOrdered B y: Shayna Malhotra on 10-09-2024 Monocytes/100 WBC (Bld) 8.4 % 0-10 [facility] Mucus LM Ql (Urine sed)Order ed By: Dnay Richardson on 10-09-2024 Mucus Ql (Urine sed) 0 SEEN /hpf [facility] Neutrophil percentageOrdered By: Dany Richardson on 10-09-2024 Neutrophils/100 WBC (Bld) 72.1 % High 47-70 [facility] Neutrophil percentageOrdered By: Shayna Malhotra on 10-09-2024 Neutrophils/100 WBC (Bld) 73.5 % High 47-70 [facility] Nitrite Test strip Ql (U)Ord ered By: Dany Richardson on 10-09-2024 Nitrite Ql (U) Negative Negative [facility] No Panel InformationOrdered By: Missael Lomeli on 10-09-2024 Urine Buprenorphine Qualitative Negative < 200 ng/mL [facility] Urine Oxycodone Screen Negative < 100 ng/mL [facility] Nucleated red blood cell per centageOrdered By: Dany Richardson on 10-09-2024 Nucleated RBC/100 WBC (Bld) [Ratio] 0 % 0-5 [facility] Nucleated red blood cell per centageOrdered By: Shayna Malhotra on 10-09-2024 Nucleated RBC/100 WBC (Bld) [Ratio] 0 % 0-5 [facility] Platelet countOrdered By: Nolan Richardson on 10-09-2024 Platelets (Bld) [#/Vol] 106 10*3/uL Low 150-450 [facility] Platelet countOrdered By: Maryanne Malhotra on 10-09-2024 Platelets (Bld) [#/Vol] 107 10*3/uL Low 150-450 [facility] Potassium (Unsp spec) [Mass/ Vol]Ordered By: Dany Richardson on 10-09-2024 Potassium [Moles/Vol] 4.5 mmol/L 3.3-5.1 [facility] Comment on above: Hemolysis present, R esults could be affected. Potassium (Unsp spec) [Mass/ Vol]Ordered By: Shayna Malhotra on 10-09-2024 Potassium [Moles/Vol] 4.2 mmol/L 3.3-5.1 [facility] Potassium measurement (mass/ volume)Ordered By: Shayna Malhotra on 10-09-2024 Potassium (Unsp spec) [Mass/Vol] 4.2 mmol/L 3.3-5.1 [facility] Protein Test strip Ql (U)Ord ered By: Dany Richardson on 10-09-2024 Protein Ql (U) 30 mg/dl High Negative [facility] Quantitative urine opiates m easurementOrdered By: Missael Lomeli on 10-09-2024 Opiates Ql (U) Negative < 300 ng/mL [facility] RBC Auto (Bld) [#/Vol]Ordere d By: Dany Richardson on 10-09-2024 RBC (Bld) [#/Vol] 4.67 10*6/uL 4.2-5.4 [facility] RBC Auto (Bld) [#/Vol]Ordere d By: Shayna Malhotra on 10-09-2024 RBC (Bld) [#/Vol] 4.68 10*6/uL 4.2-5.4 [facility] Screening urine fentanyl renay surementOrdered By: Missael Lomeli on 10-09-2024 fentaNYL Screen Ql (U) Negative [facility] Serum creatinine measurement (mass/volume)Ordered By: Dany Richardson on 10-09-2024 Creatinine [Mass/Vol] 0.88 mg/dL 0.70-1.20 [facility] Serum creatinine measurement (mass/volume)Ordered By: Shayna Malhotra on 10-09-2024 Creatinine [Mass/Vol] 0.82 mg/dL 0.70-1.20 [facility] Serum globulin measurementOr dered By: Dany Richardson on 10-09-2024 Globulin (S) [Mass/Vol] 4.6 g/dL High 2.2-4.2 [facility] Serum globulin measurementOr dered By: Shayna Malhotra on 10-09-2024 Globulin (S) [Mass/Vol] 4.8 g/dL High 2.2-4.2 [facility] Serum glucose measurement (m ass/volume)Ordered By: Dany Richardson on 10-09-2024 Glucose [Mass/Vol] 138 mg/dL High 70-99 [facility] Serum glucose measurement (m ass/volume)Ordered By: Shayna Malhotra on 10-09-2024 Glucose [Mass/Vol] 173 mg/dL High 70-99 [facility] Serum or plasma C reactive p rotein measurement (mass/volume)Ordered By: Missael Lomeli on 10-09-2024 CRP [Mass/Vol] 5.92 mg/L High 0.0-3.0 [facility] Serum or plasma alanine burnette otransferase (ALT) measurementOrdered By: Dany Richardson on 10-09-2024 ALT [Catalytic activity/Vol] 23 U/L <35 [facility] Serum or plasma alanine burnette otransferase (ALT) measurementOrdered By: Shayna Malhotra on 10-09-2024 ALT [Catalytic activity/Vol] 26 U/L <35 [facility] Serum or plasma albumin kim urement (mass/volume)Ordered By: Dany Richardson on 10-09-2024 Albumin [Mass/Vol] 3.8 g/dL 3.4-4.8 [facility] Serum or plasma albumin kim urement (mass/volume)Ordered By: Shayna Malhotra on 10-09-2024 Albumin [Mass/Vol] 4.0 g/dL 3.4-4.8 [facility] Serum or plasma albumin/glob ulin mass ratioOrdered By: Dany Richardson on 10-09-2024 Albumin/Globulin [Mass ratio] 0.8 {ratio} Low 0.9-2.4 [facility] Serum or plasma albumin/glob ulin mass ratioOrdered By: Shayna Malhtora on 10-09-2024 Albumin/Globulin [Mass ratio] 0.8 {ratio} Low 0.9-2.4 [facility] Serum or plasma alkaline regina sphatase measurementOrdered By: Dany Richardson on 10-09-2024 ALP [Catalytic activity/Vol] 135 U/L High 35-104 [facility] Serum or plasma alkaline regina sphatase measurementOrdered By: Shayna Malhotra on 10-09-2024 ALP [Catalytic activity/Vol] 148 U/L High 35-104 [facility] Serum or plasma calcium kim urement (mass/volume)Ordered By: Dany Richardson on 10-09-2024 Calcium [Mass/Vol] 9.7 mg/dL 7.6-11.0 [facility] Serum or plasma calcium kim urement (mass/volume)Ordered By: Shayna Malhotra on 10-09-2024 Calcium [Mass/Vol] 9.6 mg/dL 7.6-11.0 [facility] Serum or plasma ethanol kim urement (mass/volume)Ordered By: Missael Lomeli on 10-09-2024 Ethanol [Mass/Vol] mg/dL <10.1 [facility] Comment on above: This test is for med ical purposes only. The legal definition of intoxication varies according to local law. Serum or plasma urea nitroge n measurement (mass/volume)Ordered By: Dany Richardson on 10-09-2024 Urea nitrogen [Mass/Vol] 23 mg/dL High 4-19 [facility] Serum or plasma urea nitroge n measurement (mass/volume)Ordered By: Shayna Malhotra on 10-09-2024 Urea nitrogen [Mass/Vol] 21 mg/dL High 4-19 [facility] Sodium levelOrdered By: Dany Richardson on 10-09-2024 Sodium [Moles/Vol] 138 mmol/L 133-145 [facility] Sodium levelOrdered By: Paty Malhotra on 10-09-2024 Sodium [Moles/Vol] 138 mmol/L 133-145 [facility] Squamous epithelial cells de tection in urine sediment by light microscopyOrdered By: Dany Richardson on 10-09-2024 Epithelial cells.squamous LM Ql (Urine sed) 0-5 SEEN /hpf 5-10 [facility] TSH DL <= 0.005 mIU/L QnOrde red By: Missael Lomeli on 10-09-2024 TSH Qn 4.730 uIU/mL High 0.300-4.20 0 [facility] Thyroid Stim Hormone (TSH)on 10-09-2024 TSH 4.730 uIU/mL High 0.300-4.20 0 [facility] Comment on above: Performed By: #### L 500.4050, L506.1000, L100.0100, L501.9985 #### [facility] [address] [place], [place], [id number] Total proteinOrdered By: Treasure Richardson on 10-09-2024 Protein [Mass/Vol] 8.4 g/dL 5.9-8.4 [facility] Total proteinOrdered By: Evi Malhotra on 10-09-2024 Protein [Mass/Vol] 8.9 g/dL High 5.9-8.4 [facility] Transitional cells LM Ql (Ur ine sed)Ordered By: Dany Richardson on 10-09-2024 Urine Transitional Epithelial Cells 0-5 SEEN /hpf 0-5 [facility] Transitional cells detection in urine sediment by light microscopyOrdered By: Dany Richardson on 10-09-2024 Transitional cells LM Ql (Urine sed) 0-5 SEEN /hpf 0-5 [facility] Urinalysis, Completeon 10-09 AMORPHOUS 1+ Normal [facility] Comment on above: Order Comment: 134 Performed By: #### L 500.4050, L506.1000, L100.0100, L501.9985 #### [facility] [address] [place], [address] EPI,SQUAMOUS 0-5 SEEN Normal 5-10 [facility] Comment on above: Order Comment: 134 Performed By: #### L 500.4050, L506.1000, L100.0100, L501.9985 #### [facility] [address] [place], [address] EPI,TRANSITION 0-5 SEEN Normal 0-5 [facility] Comment on above: Order Comment: 134 Performed By: #### L 500.4050, L506.1000, L100.0100, L501.9985 #### [facility] [address] [place], [address] RBC 10-25 SEEN Normal 0-5 [facility] Comment on above: Order Comment: 134 Performed By: #### L 500.4050, L506.1000, L100.0100, L501.9985 #### [facility] [address] [place], [address] BACTERIA 4+ /hpf Normal None Seen [facility] Comment on above: Order Comment: 134 Performed By: #### L 500.4050, L506.1000, L100.0100, L501.9985 #### [facility] [address] [place], [address] WBC >100 SEEN Normal 0-5 [facility] Comment on above: Order Comment: 134 Performed By: #### L 500.4050, L506.1000, L100.0100, L501.9985 #### [facility] [address] [place], [address] Mucus Ql (Urine sed) 0 SEEN Normal [facility] Comment on above: Order Comment: 134 Performed By: #### L 500.4050, L506.1000, L100.0100, L501.9985 #### [facility] [address] [place], [address] Urine Drug Screen (VISTA)on 10-09-2024 AMPHETAMINES Negative Normal <1000 ng/mL [facility] Comment on above: Order Comment: 134 Performed By: #### L 500.4050, L506.1000, L100.0100, L501.9985 #### [facility] [address] [place], [address] BARBITIURATES Negative Normal < 200 ng/mL [facility] Comment on above: Order Comment: 134 Performed By: #### L 500.4050, L506.1000, L100.0100, L501.9985 #### [facility] [address] [place], [address] BENZODIAZIPINE Negative Normal < 200 ng/mL [facility] Comment on above: Order Comment: 134 Performed By: #### L 500.4050, L506.1000, L100.0100, L501.9985 #### [facility] [address] [place], [address] BUP Ur Drug Scr Negative Normal < 200 ng/mL [facility] Comment on above: Order Comment: 134 Performed By: #### L 500.4050, L506.1000, L100.0100, L501.9985 #### [facility] [address] [place], [address] COCAINE Negative Normal < 300 ng/mL [facility] Comment on above: Order Comment: 134 Performed By: #### L 500.4050, L506.1000, L100.0100, L501.9985 #### [facility] [address] [place], [address] Fentanyl Negative Normal [facility] Comment on above: Order Comment: 134 Performed By: #### L 500.4050, L506.1000, L100.0100, L501.9985 #### [facility] [address] [place], [address] METHADONE Negative Normal < 300 ng/mL [facility] Comment on above: Order Comment: 134 Performed By: #### L 500.4050, L506.1000, L100.0100, L501.9985 #### [facility] [address] [place], [address] OPIATES Negative Normal < 300 ng/mL [facility] Comment on above: Order Comment: 134 Performed By: #### L 500.4050, L506.1000, L100.0100, L501.9985 #### [facility] [address] [place], [address] OXYCODONE Negative Normal < 100 ng/mL [facility] Comment on above: Order Comment: 134 Performed By: #### L 500.4050, L506.1000, L100.0100, L501.9985 #### [facility] [address] [place], [address] PCP Negative Normal < 25 ng/mL [facility] Comment on above: Order Comment: 134 Performed By: #### L 500.4050, L506.1000, L100.0100, L501.9985 #### [facility] [address] [place], [place], [facility] THC Negative Normal < 50 ng/mL [facility] Comment on above: Order Comment: 134 Performed By: #### L 500.4050, L506.1000, L100.0100, L501.9985 #### [facility] [address] [place], [address] Urine benzodiazepine levelOr dered By: Missael Lomeli on 10-09-2024 Benzodiazepines Ql (U) Negative < 200 ng/mL [facility] Urine blood detectionOrdered By: Dany Richardson on 10-09-2024 Urine Occult Blood 150 /ul High Negative [facility] Urine clarityOrdered By: Treasure Richardson on 10-09-2024 Clarity (U) Cloudy Clear [facility] Urine cocaine levelOrdered B y: Missael Lomeli on 10-09-2024 Cocaine Ql (U) Negative < 300 ng/mL [facility] Urine color determinationOrd ered By: Dany Richardson on 10-09-2024 Color (U) Yellow Yellow [facility] Urine [id number] abinol (THC) measurementOrdered By: Missael Lomeli on 10-09-2024 Cannabinoids Screen Ql (U) Negative < 50 ng/mL [facility] Urine glucose detectionOrder ed By: Dany Richardson on 10-09-2024 Glucose Ql (U) 1000 mg/dl High Normal [facility] Urine leukocyte esterase det ection by dipstickOrdered By: Dany Richardson on 10-09-2024 Leukocyte esterase Test strip Ql (U) 100 /ul High Negative [facility] Urine pHOrdered By: Dany chung on 10-09-2024 pH (U) 5.0 [pH] 5.0 - 8.0 [facility] Urine phencyclidine (PCP) de tectionOrdered By: Missael Lomeli on 10-09-2024 Phencyclidine Ql (U) Negative < 25 ng/mL [facility] Urine sediment bacteria coun t by microscopy (number/high power field)Ordered By: Dany Richardson on 10-09-2024 Bacteria LM.HPF (Urine sed) [#/Area] 4 /[HPF] None Seen [facility] Urine specific gravity measu rementOrdered By: Dany Richardson on 10-09-2024 Specific gravity (U) [Rel density] 1.020 1.002-1.03 0 [facility] Urine urobilinogen measureme ntOrdered By: Dany Richardson on 10-09-2024 Urobilinogen Ql (U) 1 mg/dl High Normal [facility] Urobilinogen Ql (U)Ordered B y: Dany Richardson on 10-09-2024 Urobilinogen (U) [Mass/Vol] 1 mg/dL High Normal [facility] Vitamin B12on 10-09-2024 Cobalamin (Vitamin B12) [Mass/Vol] 379 pg/mL Normal 180-914 [facility] Comment on above: Performed By: #### L 503.0106 #### [facility] [address] [place], [place], [address] Vitamin B12 ser/plasOrdered By: Missael Lomeli on 10-09-2024 Cobalamin (Vitamin B12) [Mass/Vol] 379 pg/mL 180-914 [facility] Vitamin D, 25-hydroxyOrdered By: Shayna Malhotra on 10-09-2024 Vitamin D 25-Hydroxy 30.0 ng/mL 30-[address] [facility] Comment on above: Vitamin D StatusDefi ciency: <20 ng/mL (50nmol/L)Insufficiency: 20-30 ng/mL (50-75 nmol/L)Sufficiency: 30-100 ng/mL (75-250 nmol/L)Toxicity: >100 ng/mL (>250 nmol/L) Vitamin D,25 Hydroxyon 10-09 Vitamin D 25-OH 30.0 ng/mL Normal 30-100 [facility] Comment on above: Order Comment: 134 Result Comment: Maricarmen min D Status Deficiency: <20 ng/mL (50nmol/L) Insufficiency: 20-30 ng/mL (50-75 nmol/L) Sufficiency: 30-100 ng/mL (75-250 nmol/L) Toxicity: >100 ng/mL (>250 nmol/L) Performed By: #### L 500.4050, L506.1000, L100.0100, L501.9985 #### [facility] [address] [place], [place], [address] White blood cell (WBC) count Ordered By: Dany Richardson on 10-09-2024 WBC (Bld) [#/Vol] 6.8 10*3/uL 4.4-11.0 [facility] White blood cell (WBC) count Ordered By: Shayna Malhotra on 10-09-2024 WBC (Bld) [#/Vol] 6.0 10*3/uL 4.4-11.0 [facility] White blood cell countOrdere d By: Dany Richardson on 10-09-2024 Urine WBC >100 SEEN /hpf 0-5 [facility] White blood cell count >100 SEEN /hpf 0-5 [facility] CBC W/Diff, Automatedon Absolute Neut Normal 2.0-7.7 [facility] Comment on above: Order Comment: 134 Result Comment: UTO X2 Performed By: #### L 506.1000, L100.0100, L501.9985, L500.4050 #### [facility] [address] [place], [address] HCT Normal 37-47 [facility] Comment on above: Order Comment: 134 Result Comment: UTO X2 Performed By: #### L 506.1000, L100.0100, L501.9985, L500.4050 #### [facility] [address] [place], [address] HGB Normal 12.0-15.0 [facility] Comment on above: Order Comment: 134 Result Comment: UTO X2 Performed By: #### L 506.1000, L100.0100, L501.9985, L500.4050 #### [facility] [address] [place], [address] MCH Normal 27.0-32.0 [facility] Comment on above: Order Comment: 134 Result Comment: UTO X2 Performed By: #### L 506.1000, L100.0100, L501.9985, L500.4050 #### [facility] [address] [place], [address] MCHC Normal 32-36 [facility] Comment on above: Order Comment: 134 Result Comment: UTO X2 Performed By: #### L 506.1000, L100.0100, L501.9985, L500.4050 #### [facility] [address] [place], [address] MCV Normal 81-99 [facility] Comment on above: Order Comment: 134 Result Comment: UTO X2 Performed By: #### L 506.1000, L100.0100, L501.9985, L500.4050 #### [facility] [address] [place], [address] NEUT% Normal 47-70 [facility] Comment on above: Order Comment: 134 Result Comment: UTO X2 Performed By: #### L 506.1000, L100.0100, L501.9985, L500.4050 #### [facility] [address] [place], [address] PLT Normal 150-450 [facility] Comment on above: Order Comment: 134 Result Comment: UTO X2 Performed By: #### L 506.1000, L100.0100, L501.9985, L500.4050 #### [facility] [address] [place], [address] RBC Normal 4.2-5.4 [facility] Comment on above: Order Comment: 134 Result Comment: UTO X2 Performed By: #### L 506.1000, L100.0100, L501.9985, L500.4050 #### [facility] [address] [place], [address] RDW CV Normal 11.6-14.6 [facility] Comment on above: Order Comment: 134 Result Comment: UTO X2 Performed By: #### L 506.1000, L100.0100, L501.9985, L500.4050 #### [facility] [address] [place], [address] RDW SD Normal 35.1-43.9 [facility] Comment on above: Order Comment: 134 Result Comment: UTO X2 Performed By: #### L 506.1000, L100.0100, L501.9985, L500.4050 #### [facility] [address] [place], [address] WBC Normal 4.4-11.0 [facility] Comment on above: Order Comment: 134 Result Comment: UTO X2 Performed By: #### L 506.1000, L100.0100, L501.9985, L500.4050 #### [facility] [address] [place], [address] Comprehensive Metabolic Prof ilon 10-08-2024 ALB Normal 3.4-4.8 [facility] Comment on above: Order Comment: 134 Result Comment: UTO X2 Performed By: #### L 506.1000, L100.0100, L501.9985, L500.4050 #### [facility] [address] [place], [address] ALK PHOS Normal 35-104 [facility] Comment on above: Order Comment: 134 Result Comment: UTO X2 Performed By: #### L 506.1000, L100.0100, L501.9985, L500.4050 #### [facility] [address] [place], [address] ALT Normal <=34 [facility] Comment on above: Order Comment: 134 Result Comment: UTO X2 Performed By: #### L 506.1000, L100.0100, L501.9985, L500.4050 #### [facility] [address] [place], [address] AST Normal <=31 [facility] Comment on above: Order Comment: 134 Result Comment: UTO X2 Performed By: #### L 506.1000, L100.0100, L501.9985, L500.4050 #### [facility] [address] [place], [address] BUN Normal 4-19 [facility] Comment on above: Order Comment: 134 Result Comment: UTO X2 Performed By: #### L 506.1000, L100.0100, L501.9985, L500.4050 #### [facility] [address] [place], [address] BUN/CRE Normal 10-20 [facility] Comment on above: Order Comment: 134 Result Comment: UTO X2 Performed By: #### L 506.1000, L100.0100, L501.9985, L500.4050 #### [facility] [address] [place], [address] Calcium Normal 7.6-11.0 [facility] Comment on above: Order Comment: 134 Result Comment: UTO X2 Performed By: #### L 506.1000, L100.0100, L501.9985, L500.4050 #### [facility] [address] [place], [address] CL Normal 98-108 [facility] Comment on above: Order Comment: 134 Result Comment: UTO X2 Performed By: #### L 506.1000, L100.0100, L501.9985, L500.4050 #### [facility] [address] [place], [address] CO2 Normal 21.0-32.0 [facility] Comment on above: Order Comment: 134 Result Comment: UTO X2 Performed By: #### L 506.1000, L100.0100, L501.9985, L500.4050 #### [facility] [address] [place], [address] CREAT,SERUM Normal 0.70-1.20 [facility] Comment on above: Order Comment: 134 Result Comment: UTO X2 Performed By: #### L 506.1000, L100.0100, L501.9985, L500.4050 #### [facility] [address] [place], [address] eGFR Normal >60 [facility] Comment on above: Order Comment: 134 Result Comment: UTO X2 Performed By: #### L 506.1000, L100.0100, L501.9985, L500.4050 #### [facility] [address] [place], [address] GAP Normal 5-15 [facility] Comment on above: Order Comment: 134 Result Comment: UTO X2 Performed By: #### L 506.1000, L100.0100, L501.9985, L500.4050 #### [facility] [address] [place], [address] GLU Normal 70-99 [facility] Comment on above: Order Comment: 134 Result Comment: UTO X2 Performed By: #### L 506.1000, L100.0100, L501.9985, L500.4050 #### [facility] [address] [place], [address] Potassium Normal 3.3-5.1 [facility] Comment on above: Order Comment: 134 Result Comment: UTO X2 Performed By: #### L 506.1000, L100.0100, L501.9985, L500.4050 #### [facility] [address] [place], [address] T BILI Normal 0.00-1.30 [facility] Comment on above: Order Comment: 134 Result Comment: UTO X2 Performed By: #### L 506.1000, L100.0100, L501.9985, L500.4050 #### [facility] [address] [place], [address] T PROT Normal 5.9-8.4 [facility] Comment on above: Order Comment: 134 Result Comment: UTO X2 Performed By: #### L 506.1000, L100.0100, L501.9985, L500.4050 #### [facility] [address] [place], [address] Comprehensive Metabolic Profil Normal 133-145 [facility] Comment on above: Order Comment: 134 Result Comment: UTO X2 Performed By: #### L 506.1000, L100.0100, L501.9985, L500.4050 #### [facility] [address] [place], [address] 80-SW-Szydzba DOrdered By: Jean Malhotra on 07-09-2024 Vitamin D 25-Hydroxy 44.8 ng/mL [facility] Comment on above: Vitamin D 25(OH) Sta tus Range Deficiency <20 ng/mL (50nmol/L) Insufficiency 20 - 30 ng/mL (50 - 75 nmol/L) Sufficiency 30 - 100 ng/mL (75 - 250 nmol/L) Toxicity >100 ng/mL (>250 nmol/L) Absolute lymphocyte countOrd ered By: Shayna Malhotra on 07-09-2024 Lymphocytes Auto (Unsp spec) [#/Vol] 0.82 10*3/uL Low 0.83-4.51 [facility] Absolute neutrophil countOrd ered By: Shayna Malhotra on 07-09-2024 Neutrophils (Bld) [#/Vol] 2.6 10*3/uL 2.0-7.7 [facility] Albumin to globulin ratioOrd ered By: Shayna Malhotra on 07-09-2024 Albumin/Globulin [Mass ratio] 0.6 {ratio} Low 0.9-2.4 [facility] Automated lymphocyte count a s percentage of total leukocytesOrdered By: Shayna Malhotra on 07-09-2024 Lymphocytes/100 WBC Auto (Unsp spec) 20.2 % 19-41 [facility] Basophil percentageOrdered B y: Shayna Malhotra on 07-09-2024 Basophils/100 WBC (Bld) 1.0 % 0-1 [facility] Bilirubin, totalOrdered By: Shayna Malhotra on 07-09-2024 Bilirubin [Mass/Vol] 0.70 mg/dL 0.20-1.[address] [facility] Comment on above: For patients on eltr ombopag therapy, use of Dimension [place] TBIL is not recommended. Blood urea nitrogen (BUN)/cr eatinine ratioOrdered By: Shayna Malhotra on 07-09-2024 Urea nitrogen/Creatinine [Mass ratio] 22.2 mg/mg High 10-20 [facility] CBC W/Diff, Automatedon 02-0 -2024 Absolute Lymph 0.82 X10 3/uL Low 0.83-4.51 [facility] Comment on above: Order Comment: 134 Performed By: #### L 500.4050, L506.1000, L100.0100, L501.9985 #### [facility] [address] [place], [address] Absolute Neut 2.6 X10 3/uL Normal 2.0-7.7 [facility] Comment on above: Order Comment: 134 Performed By: #### L 500.4050, L506.1000, L100.0100, L501.9985 #### [facility] [address] [place], [address] Basophils/100 WBC (Bld) 1.0 % Normal 0-1 [facility] Comment on above: Order Comment: 134 Performed By: #### L 500.4050, L506.1000, L100.0100, L501.9985 #### [facility] [address] [place], [address] Eosinophils/100 WBC (Bld) 5.9 % High 0-5 [facility] Comment on above: Order Comment: 134 Performed By: #### L 500.4050, L506.1000, L100.0100, L501.9985 #### [facility] [address] [place], [address] Erythrocyte distribution width (RBC) [Ratio] 15.9 % High 11.6-14.6 [facility] Comment on above: Order Comment: 134 Performed By: #### L 500.4050, L506.1000, L100.0100, L501.9985 #### [facility] [address] [place], [address] Hematocrit (Bld) [Volume fraction] 38.2 % Normal 37-47 [facility] Comment on above: Order Comment: 134 Performed By: #### L 500.4050, L506.1000, L100.0100, L501.9985 #### [facility] [address] [place], [address] Hemoglobin (Bld) [Mass/Vol] 12.4 g/dL Normal 12.0-15.0 [facility] Comment on above: Order Comment: 134 Performed By: #### L 500.4050, L506.1000, L100.0100, L501.9985 #### [facility] [address] [place] [place], [address] IG% 0.200 Normal 0.0-0.9 [facility] Comment on above: Order Comment: 134 Result Comment: IG% - Immature Granulocytes (promyelocytes, myelocytes and metamyelocytes) > 1% indicates that a LEFT SHIFT is Present. Performed By: #### L 500.4050, L506.1000, L100.0100, L501.9985 #### [facility] [address] [place], [address] Lymphocytes/100 WBC (Bld) 20.2 % Normal 19-41 [facility] Comment on above: Order Comment: 134 Performed By: #### L 500.4050, L506.1000, L100.0100, L501.9985 #### [facility] [address] [place] [place], [address] MCH (RBC) [Entitic mass] 29.0 pg Normal 27.0-32.0 [facility] Comment on above: Order Comment: 134 Performed By: #### L 500.4050, L506.1000, L100.0100, L501.9985 #### [facility] [address] [place], [address] MCHC (RBC) [Mass/Vol] 32.5 g/dL Normal 32-36 [facility] Comment on above: Order Comment: 134 Performed By: #### L 500.4050, L506.1000, L100.0100, L501.9985 #### [facility] [address] [place], [address] MCV (RBC) [Entitic vol] 89.5 fL Normal 81-99 [facility] Comment on above: Order Comment: 134 Performed By: #### L 500.4050, L506.1000, L100.0100, L501.9985 #### [facility] [address] [place], [address] Monocytes/100 WBC (Bld) 9.6 % Normal 0-10 [facility] Comment on above: Order Comment: 134 Performed By: #### L 500.4050, L506.1000, L100.0100, L501.9985 #### [facility] [address] [place], [address] Neutrophils/100 WBC (Bld) 63.1 % Normal 47-70 [facility] Comment on above: Order Comment: 134 Performed By: #### L 500.4050, L506.1000, L100.0100, L501.9985 #### [facility] [address] [place], [address] Nucleated RBC (Bld) [#/Vol] 0 10*3/uL Normal 0-5 [facility] Comment on above: Order Comment: 134 Performed By: #### L 500.4050, L506.1000, L100.0100, L501.9985 #### [facility] [address] [place], [address] Platelet mean volume (Bld) [Entitic vol] 11.0 fL Normal 6.2-12.0 [facility] Comment on above: Order Comment: 134 Performed By: #### L 500.4050, L506.1000, L100.0100, L501.9985 #### [facility] [address] [place], [address] Platelets (Bld) [#/Vol] 116 10*3/uL Low 150-450 [facility] Comment on above: Order Comment: 134 Performed By: #### L 500.4050, L506.1000, L100.0100, L501.9985 #### [facility] [address] [place], [address] RBC (Bld) [#/Vol] 4.27 10*6/uL Normal 4.2-5.4 [facility] Comment on above: Order Comment: 134 Performed By: #### L 500.4050, L506.1000, L100.0100, L501.9985 #### [facility] [address] [place], [address] RDW SD 52.1 fl High 35.1-43.9 [facility] Comment on above: Order Comment: 134 Performed By: #### L 500.4050, L506.1000, L100.0100, L501.9985 #### [facility] [address] [place], [address] WBC (Bld) [#/Vol] 4.1 10*3/uL Low 4.4-11.0 [facility] Comment on above: Order Comment: 134 Performed By: #### L 500.4050, L506.1000, L100.0100, L501.9985 #### [facility] [address] [place], [address] Carbon dioxide measurementOr dered By: Shayna Malhotra on 07-09-2024 CO2 [Moles/Vol] 25.0 mmol/L 21.0-32.0 [facility] Chloride measurementOrdered By: Shayna Malhotra on 07-09-2024 Chloride [Moles/Vol] 107 mmol/L 98-[address] [facility] Comprehensive Metabolic Prof ilon 07-09-2024 Albumin [Mass/Vol] 3.1 g/dL Low 3.2-5.0 [facility] Comment on above: Order Comment: 134 Performed By: #### L 500.4050, L506.1000, L100.0100, L501.9985 #### [facility] [address] [place], [address] Albumin/Globulin [Mass ratio] 0.6 {ratio} Low 0.9-2.4 [facility] Comment on above: Order Comment: 134 Performed By: #### L 500.4050, L506.1000, L100.0100, L501.9985 #### [facility] [address] [place], [address] ALK P 126 U/L High 45-117 [facility] Comment on above: Order Comment: 134 Performed By: #### L 500.4050, L506.1000, L100.0100, L501.9985 #### [facility] [address] [place], [address] ALT [Catalytic activity/Vol] 27 U/L Normal 13-56 [facility] Comment on above: Order Comment: 134 Performed By: #### L 500.4050, L506.1000, L100.0100, L501.9985 #### [facility] [address] [place], [address] AST [Catalytic activity/Vol] 35 U/L Normal 15-37 [facility] Comment on above: Order Comment: 134 Performed By: #### L 500.4050, L506.1000, L100.0100, L501.9985 #### [facility] [address] [place], [address] Bilirubin [Mass/Vol] 0.70 mg/dL Normal 0.20-1.[address] [facility] Comment on above: Order Comment: 134 Result Comment: For patients on eltrombopag therapy, use of Dim[place] TBIL is not recommended. Performed By: #### L 500.4050, L506.1000, L100.0100, L501.9985 #### [facility] [address] [place], [address] BUN/CRE 22.2 RATIO High 10-20 [facility] Comment on above: Order Comment: 134 Performed By: #### L 500.4050, L506.1000, L100.0100, L501.9985 #### [facility] [address] [place], [address] CA,Total 9.3 mg/dL Normal 8.5-10.1 [facility] Comment on above: Order Comment: 134 Performed By: #### L 500.4050, L506.1000, L100.0100, L501.9985 #### [facility] [address] [place], [address] Chloride [Moles/Vol] 107 mmol/L Normal 98-[address] [facility] Comment on above: Order Comment: 134 Performed By: #### L 500.4050, L506.1000, L100.0100, L501.9985 #### [facility] [address] [place], [address] CO2 [Moles/Vol] 25.0 mmol/L Normal 21.0-32.0 [facility] Comment on above: Order Comment: 134 Performed By: #### L 500.4050, L506.1000, L100.0100, L501.9985 #### [facility] [address] [place], [address] Creatinine [Mass/Vol] 0.76 mg/dL Normal 0.55-1.02 [facility] Comment on above: Order Comment: 134 Result Comment: The validity of the calculated GFR GFRAA in patients over 70 years has not been determined. Clinical correlation is essential. Performed By: #### L 500.4050, L506.1000, L100.0100, L501.9985 #### [facility] [address] [place], [address] EST GFR - AA 96 mL/min Normal >60 [facility] Comment on above: Order Comment: 134 Result Comment: Afri can Nauruan GFR Calc Performed By: #### L 500.4050, L506.1000, L100.0100, L501.9985 #### [facility] [address] [place], [address] GAP 5 Normal 5-15 [facility] Comment on above: Order Comment: 134 Performed By: #### L 500.4050, L506.1000, L100.0100, L501.9985 #### [facility] [address] [place], [address] GFR/1.73 sq M.predicted among non-blacks MDRD (S/P/Bld) [Vol rate/Area] 79 mL/min/{1.73_m2} Normal >60 [facility] Comment on above: Order Comment: 134 Result Comment: Non- GFR Calc Performed By: #### L 500.4050, L506.1000, L100.0100, L501.9985 #### [facility] [address] [place], [address] Globulin (S) [Mass/Vol] 4.9 g/dL High 2.2-4.2 [facility] Comment on above: Order Comment: 134 Performed By: #### L 500.4050, L506.1000, L100.0100, L501.9985 #### [facility] [address] [place], [address] Glucose [Mass/Vol] 168 mg/dL High 74-106 [facility] Comment on above: Order Comment: 134 Result Comment: Fast ing Glucose result greater than or equal to 126 mg/dL suggests DIABETES MELLITUS per A.D.A. criteria. Performed By: #### L 500.4050, L506.1000, L100.0100, L501.9985 #### [facility] [address] [place], [address] Potassium [Moles/Vol] 4.2 mmol/L Normal 3.5-5.1 [facility] Comment on above: Order Comment: 134 Performed By: #### L 500.4050, L506.1000, L100.0100, L501.9985 #### [facility] [address] [place], [address] Sodium [Moles/Vol] 137 mmol/L Normal 136-145 [facility] Comment on above: Order Comment: 134 Performed By: #### L 500.4050, L506.1000, L100.0100, L501.9985 #### [facility] [address] [place], [address] T PROT 8.0 g/dL Normal 6.4-8.2 [facility] Comment on above: Order Comment: 134 Performed By: #### L 500.4050, L506.1000, L100.0100, L501.9985 #### [facility] [address] [place], [address] Urea nitrogen [Mass/Vol] 17 mg/dL Normal 7-18 [facility] Comment on above: Order Comment: 134 Performed By: #### L 500.4050, L506.1000, L100.0100, L501.9985 #### [facility] [address] [place], [address] Eosinophil percentageOrdered By: Shayna Malhotra on 07-09-2024 Eosinophils/100 WBC (Bld) 5.9 % High 0-5 [facility] Erythrocyte distribution wid th (RBC) [Ratio]Ordered By: Shayna Malhotra on 07-09-2024 Erythrocyte distribution width (RBC) [Entitic vol] 52.1 fL High 35.1-43.9 [facility] Erythrocyte distribution wid th ratioOrdered By: Shayna Malhotra on 07-09-2024 Erythrocyte distribution width (RBC) [Ratio] 15.9 % High 11.6-14.6 [facility] Erythrocyte distribution wid th standard deviationOrdered By: Shayna Malhotra on 07-09-2024 Erythrocyte distribution width (RBC) [Ratio] 52.1 fl High 35.1-43.9 [facility] Estimated glomerular filtrat ion rate (GFR) AmericanOrdered By: Shayna Malhotra on 07-09-2024 Estimated GFR (MDRD) Amer 96 mL/min >60 [facility] Comment on above: GFR Calc Glomerular filtration rate ( GFR) estimationOrdered By: Shayna Malhotra on 07-09-2024 Estimated GFR (MDRD) Non-Af Amer 79 mL/min >60 [facility] Comment on above: Non- GFR Calc GFR/1.73 sq M.predicted among non-blacks MDRD (S/P/Bld) [Vol rate/Area] 79 mL/min/{1.73_m2} >60 [facility] Comment on above: Non- GFR Calc Glucose measurementOrdered B y: Shayna Malhotra on 07-09-2024 Glucose [Mass/Vol] 168 mg/dL High 74-106 [facility] Comment on above: Fasting Glucose resu lt greater than or equal to 126 mg/dL suggests DIABETES MELLITUS per A.D.A. criteria. Hematocrit Auto (Bld) [Volum e fraction]Ordered By: Shayan Malhotra on 07-09-2024 Hematocrit (Bld) [Volume fraction] 38.2 % 37-47 [facility] Hemoglobin A1con 07-09-2024 HbA1c (Bld) [Mass fraction] 6.6 % High 3.8-5.6 [facility] Comment on above: Order Comment: 134 Result Comment: Norm al < 5.7 % Prediabetic 5.7 - 6.4 % Diabetic >or= 6.5 % Please note range changes. Performed By: #### L 500.4050, L506.1000, L100.0100, L501.9930 #### [facility] [address] [place], [place], [id number] Hemoglobin A1c percentageOrd ered By: Shayna Malhotra on 07-09-2024 HbA1c (Bld) [Mass fraction] 6.6 % High 3.8-5.6 [facility] Comment on above: Normal < 5.7 % Predi abetic 5.7 - 6.4 % Diabetic >or= 6.5 % Please note range changes. Hemoglobin measurementOrdere d By: Shayna Malhotra on 07-09-2024 Hemoglobin (Bld) [Mass/Vol] 12.4 g/dL 12.0-15.0 [facility] Immature granulocytes/100 WB C Auto (Bld)Ordered By: Shayna Malhotra on 07-09-2024 Immature granulocytes/100 WBC (Bld) 0.200 % 0.0-0.9 [facility] Comment on above: IG% - Immature Granu locytes (promyelocytes, myelocytes and metamyelocytes) > 1% indicates that a LEFT SHIFT is Present. Laboratory - Chemistry and C hemistry - challengeOrdered By: Shayna Malhotra on 07-09-2024 AST [Catalytic activity/Vol] 35 U/L 15-37 [facility] Lymphocytes Auto (Unsp spec) [#/Vol]Ordered By: Shayna Malhotra on 07-09-2024 Lymphocytes (Bld) [#/Vol] 0.82 10*3/uL Low 0.83-4.51 [facility] Lymphocytes/100 WBC Auto (Un sp spec)Ordered By: Shayna Malhotra on 07-09-2024 Lymphocytes/100 WBC (Bld) 20.2 % 19-41 [facility] MCV (mean corpuscular volume ) determinationOrdered By: Shayna Malhotra on 07-09-2024 MCV (RBC) [Entitic vol] 89.5 fL 81-99 [facility] Mean corpuscular hemoglobin (MCH) determinationOrdered By: Shayna Malhotra on 07-09-2024 MCH (RBC) [Entitic mass] 29.0 pg 27.0-32.0 [facility] Mean corpuscular hemoglobin concentration (MCHC) determinationOrdered By: Shayna Malhotra on 07-09-2024 MCHC (RBC) [Mass/Vol] 32.5 g/dL 32-36 [facility] Mean platelet volume determi nationOrdered By: Shayna Malhotra on 07-09-2024 Platelet mean volume (Bld) [Entitic vol] 11.0 fL 6.2-12.0 [facility] Monocyte percentageOrdered B y: Shayna Malhotra on 07-09-2024 Monocytes/100 WBC (Bld) 9.6 % 0-10 [facility] Neutrophil percentageOrdered By: Shayna Malhotra on 07-09-2024 Neutrophils/100 WBC (Bld) 63.1 % 47-70 [facility] Nucleated red blood cell per centageOrdered By: Shayna Malhotra on 07-09-2024 Nucleated RBC/100 WBC (Bld) [Ratio] 0 % 0-5 [facility] Platelet countOrdered By: Maryanne Malhotra on 07-09-2024 Platelets (Bld) [#/Vol] 116 10*3/uL Low 150-450 [facility] Potassium measurementOrdered By: Shayna Malhotra on 07-09-2024 Potassium [Moles/Vol] 4.2 mmol/L 3.5-5.1 [facility] RBC Auto (Bld) [#/Vol]Ordere d By: Shayna Malhotra on 07-09-2024 RBC (Bld) [#/Vol] 4.27 10*6/uL 4.2-5.4 [facility] Serum anion gap measurementO rdered By: Shayna Malohtra on 07-09-2024 Anion gap [Moles/Vol] 5 mmol/L 5-15 [facility] Serum globulin measurementOr dered By: Shayna Malhotra on 07-09-2024 Globulin (S) [Mass/Vol] 4.9 g/dL High 2.2-4.2 [facility] Serum or plasma alanine burnette otransferase (ALT) measurementOrdered By: Shayna Malhotra on 07-09-2024 ALT [Catalytic activity/Vol] 27 U/L 13-56 [facility] Serum or plasma albumin kim urement (mass/volume)Ordered By: Shayna Malhotra on 07-09-2024 Albumin [Mass/Vol] 3.1 g/dL Low 3.2-5.0 [facility] Serum or plasma alkaline regina sphatase measurementOrdered By: Shayna Malhotra on 07-09-2024 ALP [Catalytic activity/Vol] 126 U/L High 45-117 [facility] Serum or plasma calcium kim urement (mass/volume)Ordered By: Shayna Malhotra on 07-09-2024 Calcium [Mass/Vol] 9.3 mg/dL 8.5-10.1 [facility] Serum or plasma creatinine m easurement (mass/volume)Ordered By: Shayna Malhotra on 07-09-2024 Creatinine [Mass/Vol] 0.76 mg/dL 0.55-1.02 [facility] Comment on above: The validity of the calculated GFR & GFRAA in patients over 70 years has not been determined. Clinical correlation is essential. Serum or plasma urea nitroge n measurement (mass/volume)Ordered By: Shayna Malhotra on 07-09-2024 Urea nitrogen [Mass/Vol] 17 mg/dL 7-18 [facility] Sodium levelOrdered By: Paty Malhotra on 07-09-2024 Sodium [Moles/Vol] 137 mmol/L 136-145 [facility] Total proteinOrdered By: Evi Malhotra on 07-09-2024 Protein [Mass/Vol] 8.0 g/dL 6.4-8.2 [facility] Vitamin D,25 Hydroxyon 07-09 Vitamin D 25-OH 44.8 ng/mL Normal [facility] Comment on above: Order Comment: 134 Result Comment: Maricarmen min D 25(OH) Status Range Deficiency <20 ng/mL (50nmol/L) Insufficiency 20 - 30 ng/mL (50 - 75 nmol/L) Sufficiency 30 - 100 ng/mL (75 - 250 nmol/L) Toxicity >100 ng/mL (>250 nmol/L) Performed By: #### L 500.4050, L506.1000, L100.0100, L501.9985 #### [facility] [address] [place], [place], [address] White blood cell (WBC) count Ordered By: Shayna Malhotra on 07-09-2024 WBC (Bld) [#/Vol] 4.1 10*3/uL Low 4.4-11.0 [facility] MR/BMS.[facility] 07-04-2024 MR/BMS.IMB [facility] [address] [place], [place] [id number] OFFICE VISIT Date of Service: 07/04/24 MR#: [id number] Acct: [id number] Name: VIDA NINA Rep #: [id number] : 1950 Provider: Dr. Shayna gomes MD Age/Sex: 73/F Location: [facility] Status: Signed Intake Vital Signs 05/28/24 15:23 07/04/24 13:06 Height 5 ft 5 in 5 ft 5 in Weight: 301 lb 2 oz 300 lb 6 oz BMI 50.1 49.9 BP 140/84 H 142/80 H Blood Pressure Location Rt radial Lt radial Position Sitting Sitting Respiration 16 16 Pulse 102 H 107 H Pulse Source Monitor Monitor Temp 98.0 F 97.8 F Temp Source Temporal Temporal Pulse Oximetry (%) 95 94 Oxygen Delivery Method room air room air Intake Visit Reasons: LT Ankle Pain Chief Complaint: L ankle pain Funeral Director/Embalmer Required: No Accompanied by: Self Is patient in pain?: Yes (heel on L foot) Pain scale (1-10): 7 Allergies ciprofloxacin (From Cipro) Allergy (Mild, Verified 07/04/24 12:58) Anaphylaxis ciprofloxacin HCl (From Cipro) Allergy (Verified 07/04/24 12:58) Anaphylaxis Iodinated Contrast Media (Iodinated Contrast Media - IV Dye) Allergy (Verified 07/04/24 12:58) Rash paliperidone (From Invega) Allergy (Verified 07/04/24 12:58) Rash Penicillins Allergy (Verified 07/04/24 12:58) RASH AND ITCHING red (food color) Allergy (Verified 07/04/24 12:58) Hives red dye Allergy (Verified 07/04/24 12:58) Hives Sulfa (Sulfonamide Antibiotics) Allergy (Verified 07/04/24 12:58) RASH AND ITCHING metformin Adverse Reaction (Verified 07/04/24 12:58) Nausea/Vom/Diarrhea shellfish derived Adverse Reaction (Verified 07/04/24 12:58) Nausea/Vom/Diarrhea Medications ???Medication ???Instructions ???Recorded ???Confirmed ???Type lactobacillus combination no.9 4 4,000 mmu cells PO DAILY 06/25/20 07/04/24 History billion cell capsule (Adult 50 Plus Probiotic) acetaminophen 325 mg tablet 650 mg PO Q4H PRN PRN Pain 07/30/21 07/04/24 History (Tylenol) guaifenesin 100 mg/5 mL oral liquid 200 mg PO Q4H PRN cough 07/30/21 07/04/24 History ergocalciferol (vitamin D2) 1,250 50,000 unit PO Q14D suuplement 09/20/21 07/04/24 History mcg (50,000 unit) capsule triamcinolone acetonide 0.1 % 1 applic topical Q12H PRN PRN Rash 09/20/21 07/04/24 History topical cream insulin lispro 100 unit/mL See Protocol subcut TIDAC diabetes 11/22/21 07/04/24 History subcutaneous pen (Humalog KwikPen (U-100) Insulin) lamotrigine 100 mg tablet 100 mg PO DAILY seizures 11/22/21 07/04/24 History lisinopril 5 mg tablet 5 mg PO QDAY BP 11/22/21 07/04/24 History miconazole nitrate 2 % topical 1 applic topical BID Check with 11/22/21 07/04/24 History powder [facility] 07/04/24 History Lite Strips) [facility]/21 07/04/24 History Lite Meter kit) lancets 28 gauge (FreeStyle 11/23/21 07/04/24 History Lancets) nystatin 100,000 unit/gram topical 1 applic topical TID #0 grams 11/24/21 07/04/24 Rx powder ([facility]) quetiapine 100 mg tablet 300 mg (3 x 100 mg) PO BID #0 tabs 11/24/21 07/04/24 Rx aspirin 81 mg chewable tablet 81 mg PO DAILY 05/06/22 07/04/24 History insulin glargine-yfgn 100 unit/mL 85 unit (0.85 mL) subcut QHS #15 mL 08/11/22 07/04/24 Rx (3 mL) subcutaneous pen empagliflozin 10 mg tablet 10 mg PO DAILY 08/17/22 07/04/24 History (Jardiance) atorvastatin 40 mg tablet 40 mg PO QPM 11/24/22 07/04/24 History dulaglutide 3 mg/0.5 mL 3 mg subcut QWEEK 11/24/22 07/04/24 History subcutaneous pen injector (Trulicity) clonazepam 0.5 mg tablet 0.5 mg PO Q12H PRN panic attack(s) 05/14/24 07/04/24 Rx #60 tabs Have you fallen in the past year?: No PFSH Medical History Obesity Anxiety Cancer Anxiety Diabetes Former smoker Hypertension DVT (deep venous thrombosis) Bipolar 1 disorder Hyperlipidemia Vitamin D deficiency History of seizures history of broken heel left foot History of recurrent UTIs Family History Mother Diabetes Hypertension Heart disease Thyroid disorder Father CVA (cerebral vascular accident) Diabetes Brother Parkinson disease Thyroid disorder Lupus Alcoholism Blood clots in brain Grandfather Heart disease Asthma Social History Smoking Status: Former smoker Tobacco: How many years used: 45 how long ago did patient quit smokin11/2016 substance use type: does not use what type of physical activity do you participate in: none HPI HPI Chief Complaint: L ankle pain Details: VIDA NINA, is a 73 F who presents to the office today for left heel pain. Started insidiously a c (more content not included)... Normal [facility] MR/[facility]MS.[facility] 05-28-2024 MR/BMS.[facility] [address] [place] [address] OFFICE VISIT Date of Service: 05/28/24 MR#: [id number] Acct: [id number] Name: VIDA NINA Rep #: [id number] : 1950 Provider: Dr. Shayna gomes MD Age/Sex: 73/F Location: [facility] Status: Signed Intake Vital Signs 01/09/23 17:15 05/28/24 15:23 Height 5 ft 5 in 5 ft 5 in Weight: 301 lb 2 oz BMI 50.1 BP 140/84 H Blood Pressure Location Rt radial Position Sitting Respiration 16 Pulse 102 H Pulse Source Monitor Temp 98.0 F Temp Source Temporal Pulse Oximetry (%) 95 Oxygen Delivery Method room air Intake Visit Reasons: Annual/Physical Chief Complaint: annual/physical Funeral Director/Embalmer Required: No Accompanied by: Self Is patient in pain?: No Allergies ciprofloxacin (From Cipro) Allergy (Mild, Verified 05/28/24 14:44) Anaphylaxis ciprofloxacin HCl (From Cipro) Allergy (Verified 05/28/24 14:44) Anaphylaxis Iodinated Contrast Media (Iodinated Contrast Media - IV Dye) Allergy (Verified 05/28/24 14:44) Rash paliperidone (From Invega) Allergy (Verified 05/28/24 14:44) Rash Penicillins Allergy (Verified 05/28/24 14:44) RASH AND ITCHING red (food color) Allergy (Verified 05/28/24 14:44) Hives red dye Allergy (Verified 05/28/24 14:44) Hives Sulfa (Sulfonamide Antibiotics) Allergy (Verified 05/28/24 14:44) RASH AND ITCHING metformin Adverse Reaction (Verified 05/28/24 14:44) Nausea/Vom/Diarrhea shellfish derived Adverse Reaction (Verified 05/28/24 14:44) Nausea/Vom/Diarrhea Medications ???Medication ???Instructions ???Recorded ???Confirmed ???Type lactobacillus combination no.9 4 4,000 mmu cells PO DAILY 06/25/20 05/28/24 History billion cell capsule (Adult 50 Plus Probiotic) acetaminophen 325 mg tablet 650 mg PO Q4H PRN PRN Pain 07/30/21 05/28/24 History (Tylenol) guaifenesin 100 mg/5 mL oral liquid 200 mg PO Q4H PRN cough 07/30/21 05/28/24 History ergocalciferol (vitamin D2) 1,250 50,000 unit PO Q14D suuplement 09/20/21 05/28/24 History mcg (50,000 unit) capsule triamcinolone acetonide 0.1 % 1 applic topical Q12H PRN PRN Rash 09/20/21 05/28/24 History topical cream insulin lispro 100 unit/mL See Protocol subcut TIDAC diabetes 11/22/21 05/28/24 History subcutaneous pen (Humalog KwikPen (U-100) Insulin) lamotrigine 100 mg tablet 100 mg PO DAILY seizures 11/22/21 05/28/24 History lisinopril 5 mg tablet 5 mg PO QDAY BP 11/22/21 05/28/24 History miconazole nitrate 2 % topical 1 applic topical BID Check with 11/22/21 05/28/24 History powder primary doctor blood sugar diagnostic (FreeStyle 11/23/21 05/28/24 History Lite Strips) blood-glucose meter (FreeStyle 11/23/21 05/28/24 History Lite Meter kit) lancets 28 gauge (FreeStyle 11/23/21 05/28/24 History Lancets) nystatin 100,000 unit/gram topical 1 applic topical TID #0 grams 11/24/21 05/28/24 Rx powder ([facility]) quetiapine 100 mg tablet 300 mg (3 x 100 mg) PO BID #0 tabs 11/24/21 05/28/24 Rx aspirin 81 mg chewable tablet 81 mg PO DAILY 05/06/22 05/28/24 History insulin glargine-yfgn 100 unit/mL 85 unit (0.85 mL) subcut QHS #15 mL 08/11/22 05/28/24 Rx (3 mL) subcutaneous pen empagliflozin 10 mg tablet 10 mg PO DAILY 08/17/22 05/28/24 History (Jardiance) atorvastatin 40 mg tablet 40 mg PO QPM 11/24/22 05/28/24 History dulaglutide 3 mg/0.5 mL 3 mg subcut QWEEK 11/24/22 05/28/24 History subcutaneous pen injector (Trulicity) clonazepam 0.5 mg tablet 0.5 mg PO Q12H PRN panic attack(s) 05/14/24 05/28/24 Rx #60 tabs Have you fallen in the past year?: No PFSH Medical History (Updated 05/28/24 @ 17:[address] Shayna Malhotra MD) Obesity Anxiety Cancer Anxiety Diabetes Former smoker Hypertension DVT (deep venous thrombosis) Bipolar 1 disorder Hyperlipidemia Vitamin D deficiency History of seizures history of broken heel left foot History of recurrent UTIs Family History Mother Diabetes Hypertension Heart disease Thyroid disorder Father CVA (cerebral vascular accident) Diabetes Brother Parkinson disease Thyroid disorder Lupus Alcoholism Blood clots in brain Grandfather Heart disease Asthma Social History Smoking Status: Former smoker Tobacco: How many years used: 45 how long ago did patient quit smokin11/2016 substance use type: does not use what type of physical activity do you participate in: none HPI HPI Chief Complaint: annual/physical Details: VIDA NINA, is a 73 F who presents to the office today for follow-up. Patient follows up infrequently here in the office. She lives [facility]. She checked herself in there a few years ago as she felt it was in (more content not included)... Normal [facility] CBC W/Diff, Automatedon 11-0 -2023 Absolute Lymph 0.98 X10 3/uL Normal 0.83-4.51 [facility] Comment on above: Order Comment: 134 Performed By: #### L 500.4050, L506.1000, L100.0100, L501.9985 #### [facility] [address] [place], [address] Absolute Neut 2.6 X10 3/uL Normal 2.0-7.7 [facility] Comment on above: Order Comment: 134 Performed By: #### L 500.4050, L506.1000, L100.0100, L501.9985 #### [facility] [address] [place], [address] Basophils/100 WBC (Bld) 0.7 % Normal 0-1 [facility] Comment on above: Order Comment: 134 Performed By: #### L 500.4050, L506.1000, L100.0100, L501.9985 #### [facility] [address] [place], [address] Eosinophils/100 WBC (Bld) 4.1 % Normal 0-5 [facility] Comment on above: Order Comment: 134 Performed By: #### L 500.4050, L506.1000, L100.0100, L501.9985 #### [facility] [address] [place], [address] Erythrocyte distribution width (RBC) [Ratio] 15.2 % High 11.6-14.6 [facility] Comment on above: Order Comment: 134 Performed By: #### L 500.4050, L506.1000, L100.0100, L501.9985 #### [facility] [address] [place], [address] Hematocrit (Bld) [Volume fraction] 39.8 % Normal 37-47 [facility] Comment on above: Order Comment: 134 Performed By: #### L 500.4050, L506.1000, L100.0100, L501.9985 #### [facility] [address] [place], [address] Hemoglobin (Bld) [Mass/Vol] 12.5 g/dL Normal 12.0-15.0 [facility] Comment on above: Order Comment: 134 Performed By: #### L 500.4050, L506.1000, L100.0100, L501.9985 #### [facility] [address] [place], [address] IG% 0.200 Normal 0.0-0.9 [facility] Comment on above: Order Comment: 134 Result Comment: IG% - Immature Granulocytes (promyelocytes, myelocytes and metamyelocytes) > 1% indicates that a LEFT SHIFT is Present. Performed By: #### L 500.4050, L506.1000, L100.0100, L501.9985 #### [facility] [address] [place], [address] Lymphocytes/100 WBC (Bld) 23.9 % Normal 19-41 [facility] Comment on above: Order Comment: 134 Performed By: #### L 500.4050, L506.1000, L100.0100, L501.9985 #### [facility] [address] [place], [address] MCH (RBC) [Entitic mass] 28.4 pg Normal 27.0-32.0 [facility] Comment on above: Order Comment: 134 Performed By: #### L 500.4050, L506.1000, L100.0100, L501.9985 #### [facility] [address] [place], [address] MCHC (RBC) [Mass/Vol] 31.4 g/dL Low 32-36 [facility] Comment on above: Order Comment: 134 Performed By: #### L 500.4050, L506.1000, L100.0100, L501.9985 #### [facility] [address] [place], [address] MCV (RBC) [Entitic vol] 90.5 fL Normal 81-99 [facility] Comment on above: Order Comment: 134 Performed By: #### L 500.4050, L506.1000, L100.0100, L501.9985 #### [facility] [address] [place], [address] Monocytes/100 WBC (Bld) 8.5 % Normal 0-10 [facility] Comment on above: Order Comment: 134 Performed By: #### L 500.4050, L506.1000, L100.0100, L501.9985 #### [facility] [address] [place], [address] Neutrophils/100 WBC (Bld) 62.6 % Normal 47-70 [facility] Comment on above: Order Comment: 134 Performed By: #### L 500.4050, L506.1000, L100.0100, L501.9985 #### [facility] [address] [place], [address] Nucleated RBC (Bld) [#/Vol] 0 10*3/uL Normal 0-5 [facility] Comment on above: Order Comment: 134 Performed By: #### L 500.4050, L506.1000, L100.0100, L501.9985 #### [facility] [address] [place], [address] Platelet mean volume (Bld) [Entitic vol] 11.4 fL Normal 6.2-12.0 [facility] Comment on above: Order Comment: 134 Performed By: #### L 500.4050, L506.1000, L100.0100, L501.9985 #### [facility] [address] [place], [address] Platelets (Bld) [#/Vol] 107 10*3/uL Low 150-450 [facility] Comment on above: Order Comment: 134 Performed By: #### L 500.4050, L506.1000, L100.0100, L501.9985 #### [facility] [address] [place], [address] RBC (Bld) [#/Vol] 4.40 10*6/uL Normal 4.2-5.4 [facility] Comment on above: Order Comment: 134 Performed By: #### L 500.4050, L506.1000, L100.0100, [id number] #### [facility] [address] [place], [address] RDW SD 50.8 fl High 35.1-43.9 [facility] Comment on above: Order Comment: 134 Performed By: #### L 500.4050, L506.1000, L100.0100, [id number] #### [facility] [address] [place], [address] WBC (Bld) [#/Vol] 4.1 10*3/uL Low 4.4-11.0 [facility] Comment on above: Order Comment: 134 Performed By: #### L 500.4050, L506.1000, L100.0100, L501.9985 #### [facility] [address] [place], [address] Comprehensive Metabolic Prof iljúnior 04-09-2024 Albumin [Mass/Vol] 3.1 g/dL Low 3.2-5.0 [facility] Comment on above: Order Comment: 134 Performed By: #### L 500.4050, L506.1000, L100.0100, [id number] #### [facility] [address] [place], [address] Albumin/Globulin [Mass ratio] 0.7 {ratio} Low 0.9-2.4 [facility] Comment on above: Order Comment: 134 Performed By: #### L 500.4050, L506.1000, L100.0100, L501.9985 #### [facility] [address] [place], [address] ALK P 146 U/L High 45-117 [facility] Comment on above: Order Comment: 134 Performed By: #### L 500.4050, L506.1000, L100.0100, [id number] #### [facility] [address] [place], [address] ALT [Catalytic activity/Vol] 32 U/L Normal 13-56 [facility] Comment on above: Order Comment: 134 Performed By: #### L 500.4050, L506.1000, L100.0100, L501.9985 #### [facility] [address] [place], [address] AST [Catalytic activity/Vol] 36 U/L Normal 15-37 [facility] Comment on above: Order Comment: 134 Performed By: #### L 500.4050, L506.1000, L100.0100, L501.9985 #### [facility] [address] [place], [address] Bilirubin [Mass/Vol] 0.50 mg/dL Normal 0.20-1.[address] [facility] Comment on above: Order Comment: 134 Result Comment: For patients on eltrombopag therapy, use of Dimension [place] TBIL is not recommended. Performed By: #### L 500.4050, L506.1000, L100.0100, L501.9985 #### [facility] [address] [place], [address] BUN/CRE 19.4 RATIO Normal 10-20 [facility] Comment on above: Order Comment: 134 Performed By: #### L 500.4050, L506.1000, L100.0100, [id number] #### [facility] [address] [place], [address] CA,Total 9.1 mg/dL Normal 8.5-10.1 [facility] Comment on above: Order Comment: 134 Performed By: #### L 500.4050, L506.1000, L100.0100, [id number] #### [facility] [address] [place], [address] Chloride [Moles/Vol] 109 mmol/L High 98-[address] [facility] Comment on above: Order Comment: 134 Performed By: #### L 500.4050, L506.1000, L100.0100, [id number] #### [facility] [address] [place], [address] CO2 [Moles/Vol] 25.0 mmol/L Normal 21.0-32.0 [facility] Comment on above: Order Comment: 134 Performed By: #### L 500.4050, L506.1000, L100.0100, L501.9985 #### [facility] [address] [place], [address] Creatinine [Mass/Vol] 0.82 mg/dL Normal 0.55-1.02 [facility] Comment on above: Order Comment: 134 Result Comment: The validity of the calculated GFR GFRAA in patients over 70 years has not been determined. Clinical correlation is essential. Performed By: #### L 500.4050, L506.1000, L100.0100, L501.9985 #### [facility] [address] [place], [address] EST GFR - AA 88 mL/min Normal >60 [facility] Comment on above: Order Comment: 134 Result Comment: Afri can Nauruan GFR Calc Performed By: #### L 500.4050, L506.1000, L100.0100, L501.9985 #### [facility] [address] [place], [address] GAP 5 Normal 5-15 [facility] Comment on above: Order Comment: 134 Performed By: #### L 500.4050, L506.1000, L100.0100, L501.9985 #### [facility] [address] [place], [address] GFR/1.73 sq M.predicted among non-blacks MDRD (S/P/Bld) [Vol rate/Area] 73 mL/min/{1.73_m2} Normal >60 [facility] Comment on above: Order Comment: 134 Result Comment: Non- GFR Calc Performed By: #### L 500.4050, L506.1000, L100.0100, L501.9985 #### [facility] [address] [place], [address] Globulin (S) [Mass/Vol] 4.7 g/dL High 2.2-4.2 [facility] Comment on above: Order Comment: 134 Performed By: #### L 500.4050, L506.1000, L100.0100, L501.9985 #### [facility] [address] [place], [address] Glucose [Mass/Vol] 209 mg/dL High 74-106 [facility] Comment on above: Order Comment: 134 Result Comment: Gluc ose result greater than or equal to 200 mg/dL suggests DIABETES MELLITUS per A.D.A. criteria. Performed By: #### L 500.4050, L506.1000, L100.0100, L501.9985 #### [facility] [address] [place], [address] Potassium [Moles/Vol] 4.3 mmol/L Normal 3.5-5.1 [facility] Comment on above: Order Comment: 134 Performed By: #### L 500.4050, L506.1000, L100.0100, L501.9985 #### [facility] [address] [place], [address] Sodium [Moles/Vol] 139 mmol/L Normal 136-145 [facility] Comment on above: Order Comment: 134 Performed By: #### L 500.4050, L506.1000, L100.0100, L501.9985 #### [facility] [address] [place], [address] T PROT 7.8 g/dL Normal 6.4-8.2 [facility] Comment on above: Order Comment: 134 Performed By: #### L 500.4050, L506.1000, L100.0100, L501.9985 #### [facility] [address] [place], [address] Urea nitrogen [Mass/Vol] 16 mg/dL Normal 7-18 [facility] Comment on above: Order Comment: 134 Performed By: #### L 500.4050, L506.1000, L100.0100, L501.9985 #### [facility] [address] [place], [address] Hemoglobin A1con 04-09-2024 HbA1c (Bld) [Mass fraction] 7.9 % High 3.8-5.6 [facility] Comment on above: Order Comment: 134 Result Comment: Norm al < 5.7 % Prediabetic 5.7 - 6.4 % Diabetic >or= 6.5 % Please note range changes. Performed By: #### L 500.4050, L506.1000, L100.0100, L501.9985 #### [facility] [address] [place], [address] Vitamin D,25 Hydroxyon 04-09 Vitamin D 25-OH 40.0 ng/mL Normal [facility] Comment on above: Order Comment: 134 Result Comment: Maricarmen min D 25(OH) Status Range Deficiency <20 ng/mL (50nmol/L) Insufficiency 20 - 30 ng/mL (50 - 75 nmol/L) Sufficiency 30 - 100 ng/mL (75 - 250 nmol/L) Toxicity >100 ng/mL (>250 nmol/L) Performed By: #### L 500.4050, L506.1000, L100.0100, L501.9985 #### [facility] [address] [place], [address] CBC W/Diff, Automatedon 08-0 -2023 Absolute Lymph 1.07 X10 3/uL Normal 0.83-4.51 [facility] Comment on above: Performed By: #### L 506.1000, L100.0100, L501.9985, L500.4050 #### [facility] [address] [place], [address] Absolute Neut 2.9 X10 3/uL Normal 2.0-7.7 [facility] Comment on above: Performed By: #### L 506.1000, L100.0100, L501.9985, L500.4050 #### [facility] [address] [place], [address] Basophils/100 WBC (Bld) 0.7 % Normal 0-1 [facility] Comment on above: Performed By: #### L 506.1000, L100.0100, L501.9985, L500.4050 #### [facility] [address] [place], [address] Eosinophils/100 WBC (Bld) 3.9 % Normal 0-5 [facility] Comment on above: Performed By: #### L 506.1000, L100.0100, L501.9985, L500.4050 #### [facility] [address] [place], [address] Erythrocyte distribution width (RBC) [Ratio] 15.2 % High 11.6-14.6 [facility] Comment on above: Performed By: #### L 506.1000, L100.0100, L501.9985, L500.4050 #### [facility] [address] [place], [address] Hematocrit (Bld) [Volume fraction] 40.9 % Normal 37-47 [facility] Comment on above: Performed By: #### L 506.1000, L100.0100, L501.9985, L500.4050 #### [facility] [address] [place], [address] Hemoglobin (Bld) [Mass/Vol] 13.1 g/dL Normal 12.0-15.0 [facility] Comment on above: Performed By: #### L 506.1000, L100.0100, L501.9985, L500.4050 #### [facility] [address] [place] [place], [address] IG% 0.400 Normal 0.0-0.9 [facility] Comment on above: Result Comment: IG% - Immature Granulocytes (promyelocytes, myelocytes and metamyelocytes) > 1% indicates that a LEFT SHIFT is Present. Performed By: #### L 506.1000, L100.0100, L501.9985, L500.4050 #### [facility] [address] [place], [address] Lymphocytes/100 WBC (Bld) 23.3 % Normal 19-41 [facility] Comment on above: Performed By: #### L 506.1000, L100.0100, L501.9985, L500.4050 #### [facility] [address] [place], [address] MCH (RBC) [Entitic mass] 29.0 pg Normal 27.0-32.0 [facility] Comment on above: Performed By: #### L 506.1000, L100.0100, L501.9985, L500.4050 #### [facility] [address] [place], [address] MCHC (RBC) [Mass/Vol] 32.0 g/dL Normal 32-36 [facility] Comment on above: Performed By: #### L 506.1000, L100.0100, L501.9985, L500.4050 #### [facility] [address] [place], [address] MCV (RBC) [Entitic vol] 90.7 fL Normal 81-99 [facility] Comment on above: Performed By: #### L 506.1000, L100.0100, L501.9985, L500.4050 #### [facility] [address] [place], [address] Monocytes/100 WBC (Bld) 9.2 % Normal 0-10 [facility] Comment on above: Performed By: #### L 506.1000, L100.0100, L501.9985, L500.4050 #### [facility] [address] [place], [address] Neutrophils/100 WBC (Bld) 62.5 % Normal 47-70 [facility] Comment on above: Performed By: #### L 506.1000, L100.0100, L501.9985, L500.4050 #### [facility] [address] [place], [address] Nucleated RBC (Bld) [#/Vol] 0 10*3/uL Normal 0-5 [facility] Comment on above: Performed By: #### L 506.1000, L100.0100, L501.9985, L500.4050 #### [facility] [address] [place], [address] Platelet mean volume (Bld) [Entitic vol] 11.7 fL Normal 6.2-12.0 [facility] Comment on above: Performed By: #### L 506.1000, L100.0100, L501.9985, L500.4050 #### [facility] [address] [place], [address] Platelets (Bld) [#/Vol] 110 10*3/uL Low 150-450 [facility] Comment on above: Performed By: #### L 506.1000, L100.0100, L501.9985, L500.4050 #### [facility] [address] [place], [address] RBC (Bld) [#/Vol] 4.51 10*6/uL Normal 4.2-5.4 [facility] Comment on above: Performed By: #### L 506.1000, L100.0100, L501.9985, L500.4050 #### [facility] [address] [place], [address] RDW SD 50.8 fl High 35.1-43.9 [facility] Comment on above: Performed By: #### L 506.1000, L100.0100, L501.9985, L500.4050 #### [facility] [address] [place], [address] WBC (Bld) [#/Vol] 4.6 10*3/uL Normal 4.4-11.0 [facility] Comment on above: Performed By: #### L 506.1000, L100.0100, L501.9985, L500.4050 #### [facility] [address] [place], [address] Comprehensive Metabolic Prof ilon 01-09-2024 Albumin [Mass/Vol] 2.9 g/dL Low 3.2-5.0 [facility] Comment on above: Order Comment: 134 Performed By: #### L 506.1000, L100.0100, L501.9985, L500.4050 #### [facility] [address] [place], [address] Albumin/Globulin [Mass ratio] 0.6 {ratio} Low 0.9-2.4 [facility] Comment on above: Order Comment: 134 Performed By: #### L 506.1000, L100.0100, L501.9985, L500.4050 #### [facility] [address] [place], [address] ALK P 148 U/L High 45-117 [facility] Comment on above: Order Comment: 134 Performed By: #### L 506.1000, L100.0100, L501.9985, L500.4050 #### [facility] [address] [place], [address] ALT [Catalytic activity/Vol] 37 U/L Normal 13-56 [facility] Comment on above: Order Comment: 134 Performed By: #### L 506.1000, L100.0100, L501.9985, L500.4050 #### [facility] [address] [place], [address] AST [Catalytic activity/Vol] 40 U/L High 15-37 [facility] Comment on above: Order Comment: 134 Performed By: #### L 506.1000, L100.0100, L501.9985, L500.4050 #### [facility] [address] [place], [address] Bilirubin [Mass/Vol] 0.40 mg/dL Normal 0.20-1.[address] [facility] Comment on above: Order Comment: 134 Result Comment: For patients on eltrombopag therapy, use of [place] TBIL is not recommended. Performed By: #### L 506.1000, L100.0100, L501.9985, L500.4050 #### [facility] [address] [place], [address] BUN/CRE 20.9 RATIO High 10-20 [facility] Comment on above: Order Comment: 134 Performed By: #### L 506.1000, L100.0100, L501.9985, L500.4050 #### [facility] [address] [place], [address] CA,Total 9.0 mg/dL Normal 8.5-10.1 [facility] Comment on above: Order Comment: 134 Performed By: #### L 506.1000, L100.0100, L501.9985, L500.4050 #### [facility] [address] [place], [address] Chloride [Moles/Vol] 108 mmol/L High 98-[address] [facility] Comment on above: Order Comment: 134 Performed By: #### L 506.1000, L100.0100, L501.9985, L500.4050 #### [facility] [address] [place], [address] CO2 [Moles/Vol] 25.0 mmol/L Normal 21.0-32.0 [facility] Comment on above: Order Comment: 134 Performed By: #### L 506.1000, L100.0100, L501.9985, L500.4050 #### [facility] [address] [place], [address] Creatinine [Mass/Vol] 0.96 mg/dL Normal 0.55-1.02 [facility] Comment on above: Order Comment: 134 Result Comment: The validity of the calculated GFR GFRAA in patients over 70 years has not been determined. Clinical correlation is essential. Performed By: #### L 506.1000, L100.0100, L501.9985, L500.4050 #### [facility] [address] [place], [address] EST GFR - AA 74 mL/min Normal >60 [facility] Comment on above: Order Comment: 134 Result Comment: Afri can Nauruan GFR Calc Performed By: #### L 506.1000, L100.0100, L501.9985, L500.4050 #### [facility] [address] [place], [address] GAP 6 Normal 5-15 [facility] Comment on above: Order Comment: 134 Performed By: #### L 506.1000, L100.0100, L501.9985, L500.4050 #### [facility] [address] [place], [address] GFR/1.73 sq M.predicted among non-blacks MDRD (S/P/Bld) [Vol rate/Area] 61 mL/min/{1.73_m2} Normal >60 [facility] Comment on above: Order Comment: 134 Result Comment: Non- GFR Calc Performed By: #### L 506.1000, L100.0100, L501.9985, L500.4050 #### [facility] [address] [place], [address] Globulin (S) [Mass/Vol] 5.0 g/dL High 2.2-4.2 [facility] Comment on above: Order Comment: 134 Performed By: #### L 506.1000, L100.0100, L501.9985, L500.4050 #### [facility] [address] [place], [address] Glucose [Mass/Vol] 219 mg/dL High 74-106 [facility] Comment on above: Order Comment: 134 Result Comment: Gluc ose result greater than or equal to 200 mg/dL suggests DIABETES MELLITUS per A.D.A. criteria. Performed By: #### L 506.1000, L100.0100, L501.9985, L500.4050 #### [facility] [address] [place], [address] Potassium [Moles/Vol] 4.9 mmol/L Normal 3.5-5.1 [facility] Comment on above: Order Comment: 134 Performed By: #### L 506.1000, L100.0100, L501.9985, L500.4050 #### [facility] [address] [place], [address] Sodium [Moles/Vol] 139 mmol/L Normal 136-145 [facility] Comment on above: Order Comment: 134 Performed By: #### L 506.1000, L100.0100, L501.9985, L500.4050 #### [facility] [address] [place], [address] T PROT 7.9 g/dL Normal 6.4-8.2 [facility] Comment on above: Order Comment: 134 Performed By: #### L 506.1000, L100.0100, L501.9985, L500.4050 #### [facility] [address] [place], [address] Urea nitrogen [Mass/Vol] 20 mg/dL High 7-18 [facility] Comment on above: Order Comment: 134 Performed By: #### L 506.1000, L100.0100, L501.9985, L500.4050 #### [facility] [address] [place], [address] Hemoglobin A1con 01-09-2024 HbA1c (Bld) [Mass fraction] 7.9 % High 3.8-5.6 [facility] Comment on above: Result Comment: Norm al < 5.7 % Prediabetic 5.7 - 6.4 % Diabetic >or= 6.5 % Please note range changes. Performed By: #### L 506.1000, L100.0100, L501.9985, L500.4050 #### [facility] [address] [place], [address] Vitamin D,25 Hydroxyon 01-08 Vitamin D 25-OH 52.9 ng/mL Normal [facility] Comment on above: Result Comment: Maricarmen min D 25(OH) Status Range Deficiency <20 ng/mL (50nmol/L) Insufficiency 20 - 30 ng/mL (50 - 75 nmol/L) Sufficiency 30 - 100 ng/mL (75 - 250 nmol/L) Toxicity >100 ng/mL (>250 nmol/L) Performed By: #### L 506.1000, L100.0100, L501.9985, L500.4050 #### [facility] [address] [place], [place], [address] Absolute lymphocyte countOrd ered By: Shayna Malhotra on 07-08-2023 Lymphocytes Auto (Unsp spec) [#/Vol] 0.97 10*3/uL 0.83-4.51 [facility] Automated lymphocyte count a s percentage of total leukocytesOrdered By: Shayna Malhotra on 07-08-2023 Lymphocytes/100 WBC Auto (Unsp spec) 21.6 % 19-41 [facility] Basophil percentageOrdered B y: Shayna Malhotra on 07-08-2023 Basophils/100 WBC (Bld) 0.7 % 0-1 [facility] Bilirubin [Mass/Vol] 0.60 mg/dL 0.20-1.[address] [facility] Comment on above: For patients on eltr ombopag therapy, use of Dim[place] TBIL is not recommended. Chloride [Moles/Vol] 109 mmol/L 98-[address] [facility] Eosinophils/100 WBC (Bld) 2.4 % 0-5 [facility] Glucose [Mass/Vol] 204 mg/dL 74-106 [facility] Comment on above: Glucose result great er than or equal to 200 mg/dLsuggests DIABETES MELLITUS per A.D.A. criteria. Hemoglobin (Bld) [Mass/Vol] 12.6 g/dL 12.0-15.0 [facility] Monocytes/100 WBC (Bld) 8.7 % 0-10 [facility] Neutrophils (Bld) [#/Vol] 3.0 10*3/uL 2.0-7.7 [facility] Neutrophils/100 WBC (Bld) 66.4 % 47-70 [facility] Potassium [Moles/Vol] 4.4 mmol/L 3.5-5.1 [facility] Protein [Mass/Vol] 8.0 g/dL 6.4-8.2 [facility] Sodium [Moles/Vol] 137 mmol/L 136-145 [facility] WBC (Bld) [#/Vol] 4.5 10*3/uL 4.4-11.0 [facility] Determination of erythrocyte mean corpuscular volume (MCV)Ordered By: Shayna Malhotra on 07-08-2023 MCV (RBC) [Entitic vol] 90.3 fL 81-99 [facility] Erythrocyte distribution wid th ratioOrdered By: Shaynadesi Malhotra on 07-08-2023 Erythrocyte distribution width (RBC) [Ratio] 15.5 % 11.6-14.6 [facility] Erythrocyte distribution wid th standard deviationOrdered By: Shayna Malhotra on 07-08-2023 Erythrocyte distribution width (RBC) [Entitic vol] 51.9 fL 35.1-43.9 [facility] Hematocrit Auto (Bld) [Volum e fraction]Ordered By: Shayna Malhotra on 07-08-2023 Hematocrit (Bld) [Volume fraction] 39.9 % 37-47 [facility] Immature granulocytes/100 WB C Auto (Bld)Ordered By: Shayna Malhotra on 07-08-2023 Immature granulocytes/100 WBC (Bld) 0.200 % 0.0-0.9 [facility] Comment on above: IG% - Immature Granu locytes (promyelocytes, myelocytes and metamyelocytes) > 1% indicates that a LEFT SHIFT is Present. Laboratory - Chemistry and C hemistry - challengeOrdered By: Shanya Malhotra on 07-08-2023 Albumin/Globulin [Mass ratio] 0.7 {ratio} 0.9-2.4 [facility] ALP [Catalytic activity/Vol] 126 U/L 45-117 [facility] ALT [Catalytic activity/Vol] 34 U/L 13-56 [facility] CO2 [Moles/Vol] 24.0 mmol/L 21.0-32.0 [facility] Globulin (S) [Mass/Vol] 4.7 g/dL 2.2-4.2 [facility] Urea nitrogen/Creatinine [Mass ratio] 17.2 mg/mg 10-20 [facility] - Hematology and Cell countsOrdered By: Shayna Malhotra on 07-08-2023 MCH (RBC) [Entitic mass] 28.5 pg 27.0-32.0 [facility] MCHC (RBC) [Mass/Vol] 31.6 g/dL 32-36 [facility] Nucleated RBC/100 WBC (Bld) [Ratio] 0 % 0-5 [facility] Platelets (Bld) [#/Vol] 130 10*3/uL 150-450 [facility] No Panel InformationOrdered By: Shayna Malhotra on 07-08-2023 Estimated GFR (MDRD) Amer 83 mL/min >60 [facility] Comment on above: GFR Calc Estimated GFR (MDRD) Non-Af Amer 68 mL/min >60 [facility] Comment on above: Non- GFR Calc Vitamin D 25-Hydroxy 36.2 ng/mL [facility] Comment on above: Vitamin D 25(OH) Sta tus Range Deficiency <20 ng/mL (50nmol/L) Insufficiency 20 - 30 ng/mL (50 - 75 nmol/L) Sufficiency 30 - 100 ng/mL (75 - 250 nmol/L) Toxicity >100 ng/mL (>250 nmol/L) Platelet mean volume Robert-Ec ker (Bld) [Entitic vol]Ordered By: Shayna Malhotra on 07-08-2023 Platelet mean volume (Bld) [Entitic vol] 11.5 fL 6.2-12.0 [facility] RBC Auto (Bld) [#/Vol]Ordere d By: Shayna Malhotra on 07-08-2023 RBC (Bld) [#/Vol] 4.42 10*6/uL 4.2-5.4 [facility] Serum or plasma calcium kim urement (mass/volume)Ordered By: Shayna Malhotra on 07-08-2023 Calcium [Mass/Vol] 9.3 mg/dL 8.5-10.1 [facility] Serum or plasma creatinine m easurement (mass/volume)Ordered By: Shayna Malhotra on 07-08-2023 Creatinine [Mass/Vol] 0.87 mg/dL 0.55-1.02 [facility] Comment on above: The validity of the calculated GFR & GFRAA in patients over 70 years has not been determined. Clinical correlation is essential. Serum or plasma urea nitroge n measurement (mass/volume)Ordered By: Shayna Malhotra on 07-08-2023 Urea nitrogen [Mass/Vol] 15 mg/dL 7-18 [facility] Thin prep Papanicolaou smear with manual screeningOrdered By: Shayna Malhotra on 07-08-2023 Thin prep Papanicolaou smear with manual screening 3.3 g/dL 3.2-5.0 [facility] Thin prep Papanicolaou smear with manual screening 38 U/L 15-37 [facility] Thin prep Papanicolaou smear with manual screening 4 5-15 [facility] Whole blood hemoglobin A1c/t otal hemoglobin ratio (mass fraction)Ordered By: Shayna Malhotra on 07-08-2023 HbA1c (Bld) [Mass fraction] 7.5 % 3.8-5.6 [facility] Comment on above: Normal < 5.7 % Predi abetic 5.7 - 6.4 % Diabetic >or= 6.5 % Please note range changes. Absolute lymphocyte countOrd ered By: [facility] on 04-08-2023 Lymphocytes Auto (Unsp spec) [#/Vol] 1.16 10*3/uL 0.83-4.51 [facility] Basophil percentageOrdered B y: [facility] on 04-08-2023 Basophils/100 WBC (Bld) 0.6 % 0-1 [facility] Bilirubin [Mass/Vol] 0.60 mg/dL 0.20-1.[address] [facility] Comment on above: For patients on eltr ombopag therapy, use of [place] TBIL is not recommended. Chloride [Moles/Vol] 106 mmol/L 98-[address] [facility] Eosinophils/100 WBC (Bld) 2.6 % 0-5 [facility] Glucose [Mass/Vol] 200 mg/dL 74-106 [facility] Comment on above: Glucose result great er than or equal to 200 mg/dLsuggests DIABETES MELLITUS per A.D.A. criteria. Neutrophils (Bld) [#/Vol] 3.3 10*3/uL 2.0-7.7 [facility] Neutrophils/100 WBC (Bld) 65.4 % 47-70 [facility] Potassium [Moles/Vol] 4.2 mmol/L 3.5-5.1 [facility] Protein [Mass/Vol] 8.1 g/dL 6.4-8.2 [facility] Sodium [Moles/Vol] 136 mmol/L 136-145 [facility] WBC (Bld) [#/Vol] 5.0 10*3/uL 4.4-11.0 [facility] Blood erythrocytes count (nu mber/volume)Ordered By: [facility] on 04-08-2023 RBC (Bld) [#/Vol] 4.50 10*6/uL 4.2-5.4 [facility] Blood hemoglobin measurement (mass/volume)Ordered By: [facility] on 04-08-2023 Hemoglobin (Bld) [Mass/Vol] 12.9 g/dL 12.0-15.0 [facility] Blood lymphocytes/100 leukoc ytesOrdered By: [facility] on 04-08-2023 Lymphocytes/100 WBC (Bld) 23.2 % 19-41 [facility] Blood monocytes/100 leukocyt esOrdered By: [facility] on 04-08-2023 Monocytes/100 WBC (Bld) 7.8 % 0-10 [facility] Blood platelet mean volumeOr dered By: [facility] on 04-08-2023 Platelet mean volume (Bld) [Entitic vol] 11.9 fL 6.2-12.0 [facility] Determination of erythrocyte mean corpuscular volume (MCV)Ordered By: [facility] on 04-08-2023 MCV (RBC) [Entitic vol] 89.6 fL 81-99 [facility] Hematocrit Auto (Bld) [Volum e fraction]Ordered By: [facility] on 04-08-2023 Hematocrit (Bld) [Volume fraction] 40.3 % 37-47 [facility] Laboratory - Chemistry and C hemistry - challengeOrdered By: [facility] on 04-08-2023 ALP [Catalytic activity/Vol] 126 U/L 45-117 [facility] ALT [Catalytic activity/Vol] 35 U/L 13-56 [facility] CO2 [Moles/Vol] 24.0 mmol/L 21.0-32.0 [facility] Globulin (S) [Mass/Vol] 4.9 g/dL 2.2-4.2 [facility] Urea nitrogen/Creatinine [Mass ratio] 17.1 mg/mg 10-20 [facility] Laboratory - Hematology and Cell countsOrdered By: [facility] on 04-08-2023 Erythrocyte distribution width (RBC) [Entitic vol] 51.4 fL 35.1-43.9 [facility] Erythrocyte distribution width (RBC) [Ratio] 15.6 % 11.6-14.6 [facility] Immature granulocytes/100 WBC (Bld) 0.400 % 0.0-0.9 [facility] Comment on above: IG% - Immature Granu locytes (promyelocytes, myelocytes and metamyelocytes) > 1% indicates that a LEFT SHIFT is Present. MCH (RBC) [Entitic mass] 28.7 pg 27.0-32.0 [facility] Nucleated RBC/100 WBC (Bld) [Ratio] 0 % 0-5 [facility] MCHC Auto (RBC) [Mass/Vol]Or dered By: [facility] on 04-08-2023 MCHC (RBC) [Mass/Vol] 32.0 g/dL 32-36 [facility] No Panel InformationOrdered By: [facility] on 04-08-2023 Estimated GFR (MDRD) Amer 82 mL/min >60 [facility] Comment on above: GFR Calc Estimated GFR (MDRD) Non-Af Amer 68 mL/min >60 [facility] Comment on above: Non- GFR Calc Vitamin D 25-Hydroxy 43.2 ng/mL [facility] Comment on above: Vitamin D 25(OH) Sta tus Range Deficiency <20 ng/mL (50nmol/L) Insufficiency 20 - 30 ng/mL (50 - 75 nmol/L) Sufficiency 30 - 100 ng/mL (75 - 250 nmol/L) Toxicity >100 ng/mL (>250 nmol/L) Platelets bldOrdered By: [facility] on 04-08-[facility]23 Platelets (Bld) [#/Vol] 119 10*3/uL 150-450 [facility] Serum or plasma albumin kim urement (mass/volume)Ordered By: [facility] on 04-08-2023 Albumin [Mass/Vol] 3.2 g/dL 3.2-5.0 [facility] Serum or plasma albumin/glob ulin mass ratioOrdered By: [facility] on 04-08-2023 Albumin/Globulin [Mass ratio] 0.7 {ratio} 0.9-2.4 [facility] Serum or plasma calcium kim urement (mass/volume)Ordered By: [facility] on 04-08-2023 Calcium [Mass/Vol] 9.1 mg/dL 8.5-10.1 [facility] Serum or plasma creatinine m easurement (mass/volume)Ordered By: [facility] on 04-08-2023 Creatinine [Mass/Vol] 0.88 mg/dL 0.55-1.02 [facility] Comment on above: The validity of the calculated GFR & GFRAA in patients over 70 years has not been determined. Clinical correlation is essential. Serum or plasma urea nitroge n measurement (mass/volume)Ordered By: [facility] on 04-08-2023 Urea nitrogen [Mass/Vol] 15 mg/dL 7-18 [facility] Thin prep Papanicolaou smear with manual screeningOrdered By: [facility] on 04-08-2023 Thin prep Papanicolaou smear with manual screening 36 U/L 15-37 [facility] Thin prep Papanicolaou smear with manual screening 6 5-15 [facility] Whole blood hemoglobin A1c/t otal hemoglobin ratio (mass fraction)Ordered By: [facility] on 04-08-2023 HbA1c (Bld) [Mass fraction] 7.5 % 3.8-5.6 [facility] Comment on above: Normal < 5.7 % Predi abetic 5.7 - 6.4 % Diabetic >or= 6.5 % Please note range changes. Absolute lymphocyte countOrd ered By: Shayna Malhotra on 10-13-2022 Lymphocytes Auto (Unsp spec) [#/Vol] 1.32 10*3/uL 0.83-4.51 [facility] Basophil percentageOrdered B y: Shayna Malhotra on 10-13-2022 Basophils/100 WBC (Bld) 0.6 % 0-1 [facility] Bilirubin [Mass/Vol] 0.40 mg/dL 0.20-1.[address] [facility] Comment on above: For patients on eltr ombopag therapy, use of [place] TBIL is not recommended. Chloride [Moles/Vol] 106 mmol/L 98-[address] [facility] Eosinophils/100 WBC (Bld) 3.5 % 0-5 [facility] Glucose [Mass/Vol] 232 mg/dL 74-106 [facility] Comment on above: Glucose result great er than or equal to 200 mg/dLsuggests DIABETES MELLITUS per A.D.A. criteria. Neutrophils (Bld) [#/Vol] 3.2 10*3/uL 2.0-7.7 [facility] Neutrophils/100 WBC (Bld) 60.7 % 47-70 [facility] Potassium [Moles/Vol] 4.7 mmol/L 3.5-5.1 [facility] Protein [Mass/Vol] 8.1 g/dL 6.4-8.2 [facility] Sodium [Moles/Vol] 137 mmol/L 136-145 [facility] WBC (Bld) [#/Vol] 5.2 10*3/uL 4.4-11.0 [facility] Blood erythrocytes count (nu mber/volume)Ordered By: Shayna Malhotra on 10-13-2022 RBC (Bld) [#/Vol] 4.62 10*6/uL 4.2-5.4 [facility] Blood hemoglobin measurement (mass/volume)Ordered By: Shayna Malhotra on 10-13-2022 Hemoglobin (Bld) [Mass/Vol] 13.1 g/dL 12.0-15.0 [facility] Blood lymphocytes/100 leukoc ytesOrdered By: Shayna Malhotra on 10-13-2022 Lymphocytes/100 WBC (Bld) 25.4 % 19-41 [facility] Blood monocytes/100 leukocyt esOrdered By: Shayna Malhotra on 10-13-2022 Monocytes/100 WBC (Bld) 9.6 % 0-10 [facility] Blood platelet mean volumeOr dered By: Shayna Malhotra on 10-13-2022 Platelet mean volume (Bld) [Entitic vol] 11.1 fL 6.2-12.0 [facility] Determination of erythrocyte mean corpuscular volume (MCV)Ordered By: Shayna Malhotra on 10-13-2022 MCV (RBC) [Entitic vol] 90.3 fL 81-99 [facility] Hematocrit Auto (Bld) [Volum e fraction]Ordered By: Shayna Malhotra on 10-13-2022 Hematocrit (Bld) [Volume fraction] 41.7 % 37-47 [facility] Laboratory - Chemistry and C hemistry - challengeOrdered By: Shayna Malhotra on 10-13-2022 ALP [Catalytic activity/Vol] 153 U/L 45-117 [facility] ALT [Catalytic activity/Vol] 45 U/L 13-56 [facility] CO2 [Moles/Vol] 25.0 mmol/L 21.0-32.0 [facility] Globulin (S) [Mass/Vol] 4.9 g/dL 2.2-4.2 [facility] Urea nitrogen/Creatinine [Mass ratio] 15.7 mg/mg 10-20 [facility] Laboratory - Hematology and Cell countsOrdered By: Shayna Malhotra on 10-13-2022 Erythrocyte distribution width (RBC) [Entitic vol] 50.5 fL 35.1-43.9 [facility] Erythrocyte distribution width (RBC) [Ratio] 15.1 % 11.6-14.6 [facility] Immature granulocytes/100 WBC (Bld) 0.200 % 0.0-0.9 [facility] Comment on above: IG% - Immature Granu locytes (promyelocytes, myelocytes and metamyelocytes) > 1% indicates that a LEFT SHIFT is Present. MCH (RBC) [Entitic mass] 28.4 pg 27.0-32.0 [facility] Nucleated RBC/100 WBC (Bld) [Ratio] 0 % 0-5 [facility] MCHC Auto (RBC) [Mass/Vol]Or dered By: Shayna Malhotra on 10-13-2022 MCHC (RBC) [Mass/Vol] 31.4 g/dL 32-36 [facility] No Panel InformationOrdered By: Shayna Malhotra on 10-13-2022 Estimated GFR (MDRD) Amer 80 mL/min >60 [facility] Comment on above: GFR Calc Estimated GFR (MDRD) Non-Af Amer 66 mL/min >60 [facility] Comment on above: Non- GFR Calc Vitamin D 25-Hydroxy 57.3 ng/mL [facility] Comment on above: Vitamin D 25(OH) Sta tus Range Deficiency <20 ng/mL (50nmol/L) Insufficiency 20 - 30 ng/mL (50 - 75 nmol/L) Sufficiency 30 - 100 ng/mL (75 - 250 nmol/L) Toxicity >100 ng/mL (>250 nmol/L) Platelets bldOrdered By: Evi Malhotra on 10-13-2022 Platelets (Bld) [#/Vol] 139 10*3/uL 150-450 [facility] Serum or plasma albumin kim urement (mass/volume)Ordered By: Shayna Malhotra on 10-13-2022 Albumin [Mass/Vol] 3.2 g/dL 3.2-5.0 [facility] Serum or plasma albumin/glob ulin mass ratioOrdered By: Shayna Malhotra on 10-13-2022 Albumin/Globulin [Mass ratio] 0.7 {ratio} 0.9-2.4 [facility] Serum or plasma calcium kim urement (mass/volume)Ordered By: Shayna Malhotra on 10-13-2022 Calcium [Mass/Vol] 9.5 mg/dL 8.5-10.1 [facility] Serum or plasma creatinine m easurement (mass/volume)Ordered By: Shayna Malhotra on 10-13-2022 Creatinine [Mass/Vol] 0.89 mg/dL 0.55-1.02 [facility] Comment on above: The validity of the calculated GFR & GFRAA in patients over 70 years has not been determined. Clinical correlation is essential. Serum or plasma urea nitroge n measurement (mass/volume)Ordered By: Shayna Malhotra on 10-13-2022 Urea nitrogen [Mass/Vol] 14 mg/dL 7-18 [facility] Thin prep Papanicolaou smear with manual screeningOrdered By: Shayna Malhotra on 10-13-2022 Thin prep Papanicolaou smear with manual screening 49 U/L 15-37 [facility] Thin prep Papanicolaou smear with manual screening 6 5-15 [facility] No Panel InformationOrdered By: Shayna Malhotra on 08-12-2022 C-Peptide 2.9 ng/mL 1.1-4.4 [facility] Comment on above: C-Peptide reference interval is for fasting patients.Performed at: [id number] Director: Suhas Deal PhD, Phone: [phone] Absolute lymphocyte countOrd ered By: Shayna Malhotra on 07-13-2022 Lymphocytes Auto (Unsp spec) [#/Vol] 1.18 10*3/uL 0.83-4.51 [facility] Basophil percentageOrdered B y: Shayna Malhotra on 07-13-2022 Basophils/100 WBC (Bld) 0.7 % 0-1 [facility] Bilirubin [Mass/Vol] 0.90 mg/dL 0.20-1.[address] [facility] Comment on above: For patients on eltr ombopag therapy, use of [place] TBIL is not recommended. Chloride [Moles/Vol] 104 mmol/L 98-[address] [facility] Eosinophils/100 WBC (Bld) 3.3 % 0-5 [facility] Glucose [Mass/Vol] 314 mg/dL 74-106 [facility] Comment on above: Glucose result great er than or equal to 200 mg/dLsuggests DIABETES MELLITUS per A.D.A. criteria. Neutrophils (Bld) [#/Vol] 3.5 10*3/uL 2.0-7.7 [facility] Neutrophils/100 WBC (Bld) 64.8 % 47-70 [facility] Potassium [Moles/Vol] 5.1 mmol/L 3.5-5.1 [facility] Comment on above: Slight Hemolysis, Re sult may be falsely increased. Protein [Mass/Vol] 8.2 g/dL 6.4-8.2 [facility] Sodium [Moles/Vol] 135 mmol/L 136-145 [facility] WBC (Bld) [#/Vol] 5.4 10*3/uL 4.4-11.0 [facility] Blood erythrocytes count (nu mber/volume)Ordered By: Shayna Malhotra on 07-13-2022 RBC (Bld) [#/Vol] 4.51 10*6/uL 4.2-5.4 [facility] Blood hemoglobin measurement (mass/volume)Ordered By: Shayna Malhotra on 07-13-2022 Hemoglobin (Bld) [Mass/Vol] 12.8 g/dL 12.0-15.0 [facility] Blood lymphocytes/100 leukoc ytesOrdered By: Shayna Malhotra on 07-13-2022 Lymphocytes/100 WBC (Bld) 21.9 % 19-41 [facility] Blood monocytes/100 leukocyt esOrdered By: Shayna Malhotra on 07-13-2022 Monocytes/100 WBC (Bld) 9.1 % 0-10 [facility] Blood platelet mean volumeOr dered By: Shayna Malhotra on 07-13-2022 Platelet mean volume (Bld) [Entitic vol] 11.2 fL 6.2-12.0 [facility] Determination of erythrocyte mean corpuscular volume (MCV)Ordered By: Shayna Malhotra on 07-13-2022 MCV (RBC) [Entitic vol] 87.1 fL 81-99 [facility] Hematocrit Auto (Bld) [Volum e fraction]Ordered By: Shayna Malhotra on 07-13-2022 Hematocrit (Bld) [Volume fraction] 39.3 % 37-47 [facility] Laboratory - Chemistry and C hemistry - challengeOrdered By: Shayna Malhotra on 07-13-2022 ALP [Catalytic activity/Vol] 159 U/L 45-117 [facility] ALT [Catalytic activity/Vol] 35 U/L 13-56 [facility] CO2 [Moles/Vol] 23.0 mmol/L 21.0-32.0 [facility] Globulin (S) [Mass/Vol] 4.9 g/dL 2.2-4.2 [facility] Urea nitrogen/Creatinine [Mass ratio] 16.6 mg/mg 10-20 [facility] Laboratory - Hematology and Cell countsOrdered By: Shayna Malhotra on 07-13-2022 Erythrocyte distribution width (RBC) [Entitic vol] 49.6 fL 35.1-43.9 [facility] Erythrocyte distribution width (RBC) [Ratio] 15.7 % 11.6-14.6 [facility] Immature granulocytes/100 WBC (Bld) 0.200 % 0.0-0.9 [facility] Comment on above: IG% - Immature Granu locytes (promyelocytes, myelocytes and metamyelocytes) > 1% indicates that a LEFT SHIFT is Present. MCH (RBC) [Entitic mass] 28.4 pg 27.0-32.0 [facility] Nucleated RBC/100 WBC (Bld) [Ratio] 0 % 0-5 [facility] MCHC Auto (RBC) [Mass/Vol]Or dered By: Shayna Malhotra on 07-13-2022 MCHC (RBC) [Mass/Vol] 32.6 g/dL 32-36 [facility] No Panel InformationOrdered By: Shayna Malhotra on 07-13-2022 Estimated GFR (MDRD) Amer 74 mL/min >60 [facility] Comment on above: GFR Calc Estimated GFR (MDRD) Non-Af Amer 61 mL/min >60 [facility] Comment on above: Non- GFR Calc Vitamin D 25-Hydroxy 47.5 ng/mL [facility] Comment on above: Vitamin D 25(OH) Sta tus Range Deficiency <20 ng/mL (50nmol/L) Insufficiency 20 - 30 ng/mL (50 - 75 nmol/L) Sufficiency 30 - 100 ng/mL (75 - 250 nmol/L) Toxicity >100 ng/mL (>250 nmol/L) Platelets bldOrdered By: Evi Malhotra on 07-13-2022 Platelets (Bld) [#/Vol] 132 10*3/uL 150-450 [facility] Serum or plasma albumin kim urement (mass/volume)Ordered By: Shayna Malhotra on 07-13-2022 Albumin [Mass/Vol] 3.3 g/dL 3.2-5.0 [facility] Serum or plasma albumin/glob ulin mass ratioOrdered By: Shayna Malhotra on 07-13-2022 Albumin/Globulin [Mass ratio] 0.7 {ratio} 0.9-2.4 [facility] Serum or plasma calcium kim urement (mass/volume)Ordered By: Shayna Malhotra on 07-13-2022 Calcium [Mass/Vol] 9.6 mg/dL 8.5-10.1 [facility] Serum or plasma creatinine m easurement (mass/volume)Ordered By: Shayna Malhotra on 07-13-2022 Creatinine [Mass/Vol] 0.97 mg/dL 0.55-1.02 [facility] Comment on above: The validity of the calculated GFR & GFRAA in patients over 70 years has not been determined. Clinical correlation is essential. Serum or plasma urea nitroge n measurement (mass/volume)Ordered By: Shayna Malhotra on 07-13-2022 Urea nitrogen [Mass/Vol] 16 mg/dL 7-18 [facility] Thin prep Papanicolaou smear with manual screeningOrdered By: Shayna Malhotra on 07-13-2022 Thin prep Papanicolaou smear with manual screening 48 U/L 15-37 [facility] Comment on above: Slight Hemolysis, Re sult may be falsely increased. Thin prep Papanicolaou smear with manual screening 8 5-15 [facility] Absolute lymphocyte countOrd ered By: [facility] on 06-08-2022 Lymphocytes Auto (Unsp spec) [#/Vol] 1.23 10*3/uL 0.83-4.51 [facility] Basophil percentageOrdered B y: [facility] on 06-08-2022 Basophils/100 WBC (Bld) 0.6 % 0-1 [facility] Bilirubin [Mass/Vol] 0.50 mg/dL 0.20-1.[address] [facility] Comment on above: For patients on eltr ombopag therapy, use of [place] TBIL is not recommended. Chloride [Moles/Vol] 103 mmol/L 98-[address] [facility] Cholesterol [Mass/Vol] 116 mg/dL <200 [facility] Comment on above: <200 mg/dL Desirable 200-240 mg/dL Borderline >240 mg/dL High Risk Eosinophils/100 WBC (Bld) 3.3 % 0-5 [facility] Glucose [Mass/Vol] 266 mg/dL 74-106 [facility] Comment on above: Glucose result great er than or equal to 200 mg/dLsuggests DIABETES MELLITUS per A.D.A. criteria. Neutrophils (Bld) [#/Vol] 2.9 10*3/uL 2.0-7.7 [facility] Neutrophils/100 WBC (Bld) 61.4 % 47-70 [facility] Potassium [Moles/Vol] 4.3 mmol/L 3.5-5.1 [facility] Protein [Mass/Vol] 7.6 g/dL 6.4-8.2 [facility] Sodium [Moles/Vol] 134 mmol/L 136-145 [facility] Triglyceride [Mass/Vol] 86 mg/dL <199 [facility] Comment on above: The drugs N-Acetylcy steine and Metamizole may falsely depress this assay.Serum Triglycerides Reference Interval Normal <150 mg/dL Borderline high 150 - 199 mg/dL High 200 - 499 mg/dL Very High > or = 500 mg/dL WBC (Bld) [#/Vol] 4.8 10*3/uL 4.4-11.0 [facility] Blood erythrocytes count (nu mber/volume)Ordered By: [facility] on 06-08-2022 RBC (Bld) [#/Vol] 4.47 10*6/uL 4.2-5.4 [facility] Blood hemoglobin measurement (mass/volume)Ordered By: [facility] on 06-08-2022 Hemoglobin (Bld) [Mass/Vol] 12.4 g/dL 12.0-15.0 [facility] Blood lymphocytes/100 leukoc ytesOrdered By: [facility] on 06-08-2022 Lymphocytes/100 WBC (Bld) 25.7 % 19-41 [facility] Blood monocytes/100 leukocyt esOrdered By: [facility] on 06-08-2022 Monocytes/100 WBC (Bld) 8.8 % 0-10 [facility] Blood platelet mean volumeOr dered By: [facility] on 06-08-2022 Platelet mean volume (Bld) [Entitic vol] 11.1 fL 6.2-12.0 [facility] Determination of erythrocyte mean corpuscular volume (MCV)Ordered By: [facility] on 06-08-2022 MCV (RBC) [Entitic vol] 88.8 fL 81-99 [facility] Hematocrit Auto (Bld) [Volum e fraction]Ordered By: [facility] on 06-08-2022 Hematocrit (Bld) [Volume fraction] 39.7 % 37-47 [facility] Laboratory - Chemistry and C hemistry - challengeOrdered By: [facility] on 06-08-2022 ALP [Catalytic activity/Vol] 142 U/L 45-117 [facility] ALT [Catalytic activity/Vol] 36 U/L 13-56 [facility] CO2 [Moles/Vol] 22.0 mmol/L 21.0-32.0 [facility] Globulin (S) [Mass/Vol] 4.8 g/dL 2.2-4.2 [facility] Urea nitrogen/Creatinine [Mass ratio] 17.1 mg/mg 10-20 [facility] Laboratory - Hematology and Cell countsOrdered By: [facility] on 06-08-2022 Erythrocyte distribution width (RBC) [Entitic vol] 48.8 fL 35.1-43.9 [facility] Erythrocyte distribution width (RBC) [Ratio] 14.9 % 11.6-14.6 [facility] Immature granulocytes/100 WBC (Bld) 0.200 % 0.0-0.9 [facility] Comment on above: IG% - Immature Granu locytes (promyelocytes, myelocytes and metamyelocytes) > 1% indicates that a LEFT SHIFT is Present. MCH (RBC) [Entitic mass] 27.7 pg 27.0-32.0 [facility] Nucleated RBC/100 WBC (Bld) [Ratio] 0 % 0-5 [facility] MCHC Auto (RBC) [Mass/Vol]Or dered By: [facility] on 06-08-2022 MCHC (RBC) [Mass/Vol] 31.2 g/dL 32-36 [facility] No Panel InformationOrdered By: [facility] on 06-08-2022 Estimated GFR (MDRD) Amer 82 mL/min >60 [facility] Comment on above: GFR Calc Estimated GFR (MDRD) Non-Af Amer 68 mL/min >60 [facility] Comment on above: Non- GFR Calc Vitamin D 25-Hydroxy 56.8 ng/mL [facility] Comment on above: Vitamin D 25(OH) Sta tus Range Deficiency <20 ng/mL (50nmol/L) Insufficiency 20 - 30 ng/mL (50 - 75 nmol/L) Sufficiency 30 - 100 ng/mL (75 - 250 nmol/L) Toxicity >100 ng/mL (>250 nmol/L) Platelets bldOrdered By: [facility] on 06-08-[facility]22 Platelets (Bld) [#/Vol] 145 10*3/uL 150-450 [facility] Serum or plasma albumin kim urement (mass/volume)Ordered By: [facility] on 06-08-2022 Albumin [Mass/Vol] 2.8 g/dL 3.2-5.0 [facility] Serum or plasma albumin/glob ulin mass ratioOrdered By: [facility] on 06-08-2022 Albumin/Globulin [Mass ratio] 0.6 {ratio} 0.9-2.4 [facility] Serum or plasma calcium kim urement (mass/volume)Ordered By: [facility] on 06-08-2022 Calcium [Mass/Vol] 9.0 mg/dL 8.5-10.1 [facility] Serum or plasma cholesterol in HDL measurement (mass/volume)Ordered By: [facility] on 06-08-2022 Cholesterol in HDL [Mass/Vol] 58 mg/dL >40 [facility] Comment on above: The drugs N-Acetylcy steine and Metamizole may falsely depress this assay. Reference Range HDL <40 mg/dL Low HDL Cholesterol HDL >or= 60 mg/dL High HDL Cholesterol Serum or plasma cholesterol in VLDL measurement (mass/volume)Ordered By: [facility] on 06-08-2022 Cholesterol in VLDL [Mass/Vol] 17 mg/dL 5-40 [facility] Serum or plasma creatinine m easurement (mass/volume)Ordered By: [facility] on 06-08-2022 Creatinine [Mass/Vol] 0.88 mg/dL 0.55-1.02 [facility] Comment on above: The validity of the calculated GFR & GFRAA in patients over 70 years has not been determined. Clinical correlation is essential. Serum or plasma low density lipoprotein (LDL) cholesterol measurement (mass/volume)Ordered By: [facility] on 06-08-2022 Cholesterol in LDL [Mass/Vol] 41 mg/dL 0-130 [facility] Serum or plasma urea nitroge n measurement (mass/volume)Ordered By: [facility] on 06-08-2022 Urea nitrogen [Mass/Vol] 15 mg/dL 7-18 [facility] Thin prep Papanicolaou smear with manual screeningOrdered By: [facility] on 06-08-2022 Thin prep Papanicolaou smear with manual screening 39 U/L 15-37 [facility] Thin prep Papanicolaou smear with manual screening 9 5-15 [facility] Whole blood hemoglobin A1c/t otal hemoglobin ratio (mass fraction)Ordered By: [facility] on 06-08-2022 HbA1c (Bld) [Mass fraction] 8.8 % 3.8-5.6 [facility] [facility] Comment on above: Normal < 5.7 % Predi abetic 5.7 - 6.4 % Diabetic >or= 6.5 % Please note range changes. Absolute lymphocyte countOrd ered By: Shayna Malhotra on 04-13-2022 Lymphocytes Auto (Unsp spec) [#/Vol] 1.30 10*3/uL 0.83-4.51 [facility] Basophil percentageOrdered B y: Shayna Malhotra on 04-13-2022 Basophils/100 WBC (Bld) 0.2 % 0-1 [facility] Bilirubin [Mass/Vol] 0.40 mg/dL 0.20-1.[address] [facility] Comment on above: For patients on eltr ombopag therapy, use of [place] TBIL is not recommended. Chloride [Moles/Vol] 106 mmol/L 98-[address] [facility] Eosinophils/100 WBC (Bld) 3.5 % 0-5 [facility] Glucose [Mass/Vol] 149 mg/dL 74-106 [facility] Comment on above: Fasting Glucose resu lt greater than or equal to 126 mg/dL suggests DIABETES MELLITUS per A.D.A. criteria. Neutrophils (Bld) [#/Vol] 2.5 10*3/uL 2.0-7.7 [facility] Neutrophils/100 WBC (Bld) 54.6 % 47-70 [facility] Potassium [Moles/Vol] 4.5 mmol/L 3.5-5.1 [facility] Protein [Mass/Vol] 7.8 g/dL 6.4-8.2 [facility] Sodium [Moles/Vol] 138 mmol/L 136-145 [facility] WBC (Bld) [#/Vol] 4.6 10*3/uL 4.4-11.0 [facility] Blood erythrocytes count (nu mber/volume)Ordered By: Shayna Malhotra on 04-13-2022 RBC (Bld) [#/Vol] 4.45 10*6/uL 4.2-5.4 [facility] Blood hemoglobin measurement (mass/volume)Ordered By: Shayna Malhotra on 04-13-2022 Hemoglobin (Bld) [Mass/Vol] 12.9 g/dL 12.0-15.0 [facility] Blood lymphocytes/100 leukoc ytesOrdered By: Shayna Malhotra on 04-13-2022 Lymphocytes/100 WBC (Bld) 28.4 % 19-41 [facility] Blood monocytes/100 leukocyt esOrdered By: Shayna Malhotra on 04-13-2022 Monocytes/100 WBC (Bld) 12.9 % 0-10 [facility] Blood platelet mean volumeOr dered By: Shayna Malhotra on 04-13-2022 Platelet mean volume (Bld) [Entitic vol] 11.1 fL 6.2-12.0 [facility] Determination of erythrocyte mean corpuscular volume (MCV)Ordered By: Shayna Malhotra on 04-13-2022 MCV (RBC) [Entitic vol] 90.8 fL 81-99 [facility] Hematocrit Auto (Bld) [Volum e fraction]Ordered By: Shayna Malhotra on 04-13-2022 Hematocrit (Bld) [Volume fraction] 40.4 % 37-47 [facility] Laboratory - Chemistry and C hemistry - challengeOrdered By: Shayna Malhotra on 04-13-2022 ALP [Catalytic activity/Vol] 144 U/L 45-117 [facility] ALT [Catalytic activity/Vol] 32 U/L 13-56 [facility] CO2 [Moles/Vol] 23.0 mmol/L 21.0-32.0 [facility] Globulin (S) [Mass/Vol] 4.8 g/dL 2.2-4.2 [facility] Urea nitrogen/Creatinine [Mass ratio] 15.3 mg/mg 10-20 [facility] Laboratory - Hematology and Cell countsOrdered By: Shayna Malhotra on 04-13-2022 Erythrocyte distribution width (RBC) [Entitic vol] 47.8 fL 35.1-43.9 [facility] Erythrocyte distribution width (RBC) [Ratio] 14.3 % 11.6-14.6 [facility] Immature granulocytes/100 WBC (Bld) 0.400 % 0.0-0.9 [facility] Comment on above: IG% - Immature Granu locytes (promyelocytes, myelocytes and metamyelocytes) > 1% indicates that a LEFT SHIFT is Present. MCH (RBC) [Entitic mass] 29.0 pg 27.0-32.0 [facility] Nucleated RBC/100 WBC (Bld) [Ratio] 0 % 0-5 [facility] MCHC Auto (RBC) [Mass/Vol]Or dered By: Shayna Malhotra on 04-13-2022 MCHC (RBC) [Mass/Vol] 31.9 g/dL 32-36 [facility] No Panel InformationOrdered By: Shayna Malhotra on 04-13-2022 Estimated GFR (MDRD) Amer 78 mL/min >60 [facility] Comment on above: GFR Calc Estimated GFR (MDRD) Non-Af Amer 65 mL/min >60 [facility] Comment on above: Non- GFR Calc Vitamin D 25-Hydroxy 63.8 ng/mL [facility] Comment on above: Vitamin D 25(OH) Sta tus Range Deficiency <20 ng/mL (50nmol/L) Insufficiency 20 - 30 ng/mL (50 - 75 nmol/L) Sufficiency 30 - 100 ng/mL (75 - 250 nmol/L) Toxicity >100 ng/mL (>250 nmol/L) Platelets bldOrdered By: Evi Malhotra on 04-13-2022 Platelets (Bld) [#/Vol] 157 10*3/uL 150-450 [facility] Serum or plasma albumin kim urement (mass/volume)Ordered By: Shayna Malhotra on 04-13-2022 Albumin [Mass/Vol] 3.0 g/dL 3.2-5.0 [facility] Serum or plasma albumin/glob ulin mass ratioOrdered By: Shayna Malhotra on 04-13-2022 Albumin/Globulin [Mass ratio] 0.6 {ratio} 0.9-2.4 [facility] Serum or plasma calcium kim urement (mass/volume)Ordered By: Shayna Malhotra on 04-13-2022 Calcium [Mass/Vol] 9.0 mg/dL 8.5-10.1 [facility] Serum or plasma creatinine m easurement (mass/volume)Ordered By: Shayna Malhotra on 04-13-2022 Creatinine [Mass/Vol] 0.92 mg/dL 0.55-1.02 [facility] Comment on above: The validity of the calculated GFR & GFRAA in patients over 70 years has not been determined. Clinical correlation is essential. Serum or plasma urea nitroge n measurement (mass/volume)Ordered By: Shayna Malhotra on 04-13-2022 Urea nitrogen [Mass/Vol] 14 mg/dL 7-18 [facility] Thin prep Papanicolaou smear with manual screeningOrdered By: Shayna Malhotra on 04-13-2022 Thin prep Papanicolaou smear with manual screening 40 U/L 15-37 [facility] Thin prep Papanicolaou smear with manual screening 9 5-15 [facility] Basophil percentageon 2021 Bilirubin [Mass/Vol] 0.80 mg/dL 0.20-1.[address] [facility] Work Phone: Comment on above: For patients on eltr ombopag therapy, use of [place] TBIL is not recommended. Chloride [Moles/Vol] 103 mmol/L 98-107 [facility] Work [facility]: Glucose [Mass/Vol] 218 mg/dL 74-106 [facility] Work Phone: Comment on above: Glucose result great er than or equal to 200 mg/dLsuggests DIABETES MELLITUS per A.D.A. criteria. Potassium [Moles/Vol] 4.2 mmol/L 3.5-5.1 [facility] Work Phone: Protein [Mass/Vol] 8.0 g/dL 6.4-8.2 [facility] Work Phone: Sodium [Moles/Vol] 135 mmol/L 136-145 [facility] Work Phone: WBC (Bld) [#/Vol] 8.6 10*3/uL 4.4-11.0 [facility] Work Phone: Blood erythrocytes count (nu mber/volume)on 01-01-2022 RBC (Bld) [#/Vol] 4.72 10*6/uL 4.2-5.4 [facility] Work [facility]: Blood hemoglobin measurement (mass/volume)on 01-01-2022 Hemoglobin (Bld) [Mass/Vol] 13.5 g/dL 12.0-15.0 [facility] Work Phone: Blood platelet mean volumeon 01-01-2022 Platelet mean volume (Bld) [Entitic vol] 11.0 fL 6.2-12.0 [facility] Work Phone: Determination of erythrocyte mean corpuscular volume (MCV)on 01-01-2022 MCV (RBC) [Entitic vol] 86.2 fL 81-99 [facility] Work Phone: Hematocrit Auto (Bld) [Volum e fraction]on 01-01-2022 Hematocrit (Bld) [Volume fraction] 40.7 % 37-47 [facility] Work Phone: Laboratory - Chemistry and C hemistry - challengeon 01-01-2022 ALP [Catalytic activity/Vol] 140 U/L 45-117 [facility] Work Phone: ALT [Catalytic activity/Vol] 35 U/L 13-56 [facility] Work Phone: CO2 [Moles/Vol] 23.0 mmol/L 21.0-32.0 [facility] Work Phone: Globulin (S) [Mass/Vol] 4.9 g/dL 2.2-4.2 [facility] Work Phone: Urea nitrogen/Creatinine [Mass ratio] 13.8 mg/mg 10-20 [facility] Work Phone: Laboratory - Hematology and Cell countson 01-01-2022 Erythrocyte distribution width (RBC) [Entitic vol] 55.6 fL 35.1-43.9 [facility] Work Phone: Erythrocyte distribution width (RBC) [Ratio] 17.5 % 11.6-14.6 [facility] Work Phone: MCH (RBC) [Entitic mass] 28.6 pg 27.0-32.0 [facility] Work Phone: MCHC Auto (RBC) [Mass/Vol]on 01-01-2022 MCHC (RBC) [Mass/Vol] 33.2 g/dL 32-36 [facility] Work Phone: No Panel Informationon 01-01 Estimated GFR (MDRD) Amer 64 mL/min >60 [facility] Work Phone: Comment on above: GFR Calc Estimated GFR (MDRD) Non-Af Amer 53 mL/min >60 [facility] Work Phone: Comment on above: Non- GFR Calc Platelets bldon 01-01-2022 Platelets (Bld) [#/Vol] 141 10*3/uL 150-450 [facility] Work Phone: Serum or plasma albumin kim urement (mass/volume)on 01-01-2022 Albumin [Mass/Vol] 3.1 g/dL 3.2-5.0 [facility] Work Phone: Serum or plasma albumin/glob ulin mass ratioon 01-01-2022 Albumin/Globulin [Mass ratio] 0.6 {ratio} 0.9-2.4 [facility] Work Phone: Serum or plasma calcium kim urement (mass/volume)on 01-01-2022 Calcium [Mass/Vol] 9.3 mg/dL 8.5-10.1 [facility] Work Phone: Serum or plasma creatinine m easurement (mass/volume)on 01-01-2022 Creatinine [Mass/Vol] 1.09 mg/dL 0.55-1.02 [facility] Work Phone: Comment on above: The validity of the calculated GFR & GFRAA in patients over 70 years has not been determined. Clinical correlation is essential. Serum or plasma urea nitroge n measurement (mass/volume)on 01-01-2022 Urea nitrogen [Mass/Vol] 15 mg/dL 7-18 [facility] Work Phone: Thin prep Papanicolaou smear with manual screeningon 01-01-2022 Thin prep Papanicolaou smear with manual screening 36 U/L 15-37 [facility] Work Phone: Thin prep Papanicolaou smear with manual screening 9 5-15 [facility] Work Phone: Whole blood hemoglobin A1c/t otal hemoglobin ratio (mass fraction)on 01-01-2022 HbA1c (Bld) [Mass fraction] 8.7 % 3.8-5.6 [facility] Work Phone: Comment on above: Normal < 5.7 % Predi abetic 5.7 - 6.4 % Diabetic >or= 6.5 % Please note range changes. Basophil percentageon 2021 Bilirubin [Mass/Vol] 0.40 mg/dL 0.20-1.[address] [facility] Work Phone: Comment on above: For patients on eltr ombopag therapy, use of [place] TBIL is not recommended. Chloride [Moles/Vol] 103 mmol/L 98-107 [facility] Work Phone: Glucose [Mass/Vol] 216 mg/dL 74-106 [facility] Work Phone: Comment on above: Glucose result great er than or equal to 200 mg/dLsuggests DIABETES MELLITUS per A.D.A. criteria. Potassium [Moles/Vol] 4.4 mmol/L 3.5-5.1 [facility]: Protein [Mass/Vol] 6.5 g/dL 6.4-8.2 [facility] Work Phone: Sodium [Moles/Vol] 136 mmol/L 136-145 [facility] Work Phone: WBC (Bld) [#/Vol] 6.2 10*3/uL 4.4-11.0 [facility] Work Phone: Blood erythrocytes count (nu mber/volume)on 12-01-2021 RBC (Bld) [#/Vol] 4.09 10*6/uL 4.2-5.4 [facility] Work Phone: Blood hemoglobin measurement (mass/volume)on 12-01-2021 Hemoglobin (Bld) [Mass/Vol] 11.3 g/dL 12.0-15.0 [facility] Work Phone: Blood platelet mean volumeon 12-01-2021 Platelet mean volume (Bld) [Entitic vol] 10.8 fL 6.2-12.0 [facility] Work Phone: Determination of erythrocyte mean corpuscular volume (MCV)on 12-01-2021 MCV (RBC) [Entitic vol] 85.8 fL 81-99 [facility] Work Phone: Comment on above: Delta: 79.2 on 11/27-0650 Hematocrit Auto (Bld) [Volum e fraction]on 12-01-2021 Hematocrit (Bld) [Volume fraction] 35.1 % 37-47 [facility] Work Phone: Laboratory - Chemistry and C hemistry - challengeon 12-01-2021 ALP [Catalytic activity/Vol] 130 U/L 45-117 [facility] Work Phone: ALT [Catalytic activity/Vol] 48 U/L 13-56 [facility] Work Phone: CK [Catalytic activity/Vol] 27 U/L 26-192 [facility] Work Phone: CO2 [Moles/Vol] 27.0 mmol/L 21.0-32.0 [facility] Work Phone: Globulin (S) [Mass/Vol] 4.2 g/dL 2.2-4.2 [facility] Work Phone: Urea nitrogen/Creatinine [Mass ratio] 31.2 mg/mg 10-20 [facility] Work Phone: Laboratory - Hematology and Cell countson 12-01-2021 Erythrocyte distribution width (RBC) [Entitic vol] 48.3 fL 35.1-43.9 [facility] Work Phone: Erythrocyte distribution width (RBC) [Ratio] 15.4 % 11.6-14.6 [facility] Work Phone: MCH (RBC) [Entitic mass] 27.6 pg 27.0-32.0 [facility] Work Phone: MCHC Auto (RBC) [Mass/Vol]on 12-01-2021 MCHC (RBC) [Mass/Vol] 32.2 g/dL 32-36 [facility] Work Phone: Comment on above: Delta: 34.7 on 11/27 No Panel Informationon 12-01 Estimated GFR (MDRD) Amer 91 mL/min >60 [facility] Work Phone: Comment on above: GFR Calc Estimated GFR (MDRD) Non-Af Amer 76 mL/min >60 [facility] Work Phone: Comment on above: Non- GFR Calc Platelets bldon 12-01-2021 Platelets (Bld) [#/Vol] 231 10*3/uL 150-450 [facility] Work Phone: Serum or plasma albumin kim urement (mass/volume)on 12-01-2021 Albumin [Mass/Vol] 2.3 g/dL 3.2-5.0 [facility] Work Phone: Serum or plasma albumin/glob ulin mass ratioon 12-01-2021 Albumin/Globulin [Mass ratio] 0.5 {ratio} 0.9-2.4 [facility] Work Phone: Serum or plasma calcium kim urement (mass/volume)on 12-01-2021 Calcium [Mass/Vol] 8.8 mg/dL 8.5-10.1 [facility] Work Phone: Serum or plasma creatinine m easurement (mass/volume)on 12-01-2021 Creatinine [Mass/Vol] 0.80 mg/dL 0.55-1.02 [facility] Work Phone: Comment on above: The validity of the calculated GFR & GFRAA in patients over 70 years has not been determined. Clinical correlation is essential. Serum or plasma urea nitroge n measurement (mass/volume)on 12-01-2021 Urea nitrogen [Mass/Vol] 25 mg/dL 7-18 [facility] Work Phone: Thin prep Papanicolaou smear with manual screeningon 12-01-2021 Thin prep Papanicolaou smear with manual screening 69 U/L 15-37 [facility] Work Phone: Thin prep Papanicolaou smear with manual screening 6 5-15 [facility] Work Phone: Whole blood hemoglobin A1c/t otal hemoglobin ratio (mass fraction)on 12-01-2021 HbA1c (Bld) [Mass fraction] 10.6 % 3.8-5.6 [facility] Work Phone: Comment on above: Normal < 5.7 % Predi abetic 5.7 - 6.4 % Diabetic >or= 6.5 % Please note range changes. Basophil percentageon 2021 Bilirubin [Mass/Vol] 0.40 mg/dL 0.20-1.[address] [facility] Work Phone: Comment on above: For patients on eltr ombopag therapy, use of [place] TBIL is not recommended. Chloride [Moles/Vol] 102 mmol/L 98-[address] [facility] Work Phone: Glucose [Mass/Vol] 256 mg/dL 74-106 [facility] Work Phone: Comment on above: Glucose result great er than or equal to 200 mg/dLsuggests DIABETES MELLITUS per A.D.A. criteria. Potassium [Moles/Vol] 4.4 mmol/L 3.5-5.1 [facility] Work Phone: Protein [Mass/Vol] 7.0 g/dL 6.4-8.2 [facility] Work Phone: Sodium [Moles/Vol] 133 mmol/L 136-145 [facility] Work Phone: WBC (Bld) [#/Vol] 5.6 10*3/uL 4.4-11.0 [facility] Work Phone: Blood erythrocytes count (nu mber/volume)on 11-27-2021 RBC (Bld) [#/Vol] 4.47 10*6/uL 4.2-5.4 [facility] Work Phone: Blood hemoglobin measurement (mass/volume)on 11-27-2021 Hemoglobin (Bld) [Mass/Vol] 12.3 g/dL 12.0-15.0 [facility] Work Phone: Blood platelet mean volumeon 11-27-2021 Platelet mean volume (Bld) [Entitic vol] 11.9 fL 6.2-12.0 [facility] Work Phone: Determination of erythrocyte mean corpuscular volume (MCV)on 11-27-2021 MCV (RBC) [Entitic vol] 79.2 fL 81-99 [facility] Work Phone: Comment on above: Delta: 83.4 on 11/24 Hematocrit Auto (Bld) [Volum e fraction]on 11-27-2021 Hematocrit (Bld) [Volume fraction] 35.4 % 37-47 [facility] Work Phone: Laboratory - Chemistry and C hemistry - challengeon 11-27-2021 ALP [Catalytic activity/Vol] 127 U/L 45-117 [facility] Work Phone: ALT [Catalytic activity/Vol] 28 U/L 13-56 [facility] Work Phone: CO2 [Moles/Vol] 25.0 mmol/L 21.0-32.0 [facility] Work Phone: Globulin (S) [Mass/Vol] 4.6 g/dL 2.2-4.2 [facility] Work Phone: Urea nitrogen/Creatinine [Mass ratio] 15.9 mg/mg 10-20 [facility] Work Phone: Laboratory - Hematology and Cell countson 11-27-2021 Erythrocyte distribution width (RBC) [Entitic vol] 41.4 fL 35.1-43.9 [facility] Work Phone: Erythrocyte distribution width (RBC) [Ratio] 14.5 % 11.6-14.6 [facility] Work Phone: MCH (RBC) [Entitic mass] 27.5 pg 27.0-32.0 [facility] Work Phone: MCHC Auto (RBC) [Mass/Vol]on 11-27-2021 MCHC (RBC) [Mass/Vol] 34.7 g/dL 32-36 [facility] Work Phone: No Panel Informationon 11-27 Estimated GFR (MDRD) Amer 108 mL/min >60 [facility] Work Phone: Comment on above: GFR Calc Estimated GFR (MDRD) Non-Af Amer 89 mL/min >60 [facility] Work Phone: Comment on above: Non- GFR Calc Platelets bldon 11-27-2021 Platelets (Bld) [#/Vol] 154 10*3/uL 150-450 [facility] Work Phone: Serum or plasma albumin kim urement (mass/volume)on 11-27-2021 Albumin [Mass/Vol] 2.4 g/dL 3.2-5.0 [facility] Work Phone: Serum or plasma albumin/glob ulin mass ratioon 11-27-2021 Albumin/Globulin [Mass ratio] 0.5 {ratio} 0.9-2.4 [facility] Work Phone: Serum or plasma calcium kim urement (mass/volume)on 11-27-2021 Calcium [Mass/Vol] 8.9 mg/dL 8.5-10.1 [facility] Work Phone: Serum or plasma creatinine m easurement (mass/volume)on 11-27-2021 Creatinine [Mass/Vol] 0.69 mg/dL 0.55-1.02 [facility] Work Phone: Comment on above: The validity of the calculated GFR & GFRAA in patients over 70 years has not been determined. Clinical correlation is essential. Serum or plasma urea nitroge n measurement (mass/volume)on 11-27-2021 Urea nitrogen [Mass/Vol] 11 mg/dL 7-18 [facility] Work Phone: Thin prep Papanicolaou smear with manual screeningon 11-27-2021 Thin prep Papanicolaou smear with manual screening 31 U/L 15-37 [facility] Work Phone: Thin prep Papanicolaou smear with manual screening 6 5-15 [facility] Work Phone: Absolute lymphocyte counton 11-24-2021 Lymphocytes Auto (Unsp spec) [#/Vol] 1.01 10*3/uL 0.83-4.51 [facility] Work Phone: Basophil percentageon 2021 Basophil percentage 3.5 mg/dL 2.5-4.9 [facility] Work Phone: Basophils/100 WBC (Bld) 0.4 % 0-1 [facility] Work Phone: Bilirubin [Mass/Vol] 0.40 mg/dL 0.20-1.[address] [facility] Work Phone: Comment on above: For patients on eltr ombopag therapy, use of [place] TBIL is not recommended. Chloride [Moles/Vol] 105 mmol/L 98-[address] [facility] Work Phone: Eosinophils/100 WBC (Bld) 2.3 % 0-5 [facility] Work Phone: Glucose [Mass/Vol] 321 mg/dL 74-106 [facility] Work Phone: Comment on above: Glucose result great er than or equal to 200 mg/dLsuggests DIABETES MELLITUS per A.D.A. criteria. Neutrophils (Bld) [#/Vol] 3.8 10*3/uL 2.0-7.7 [facility] Work Phone: Neutrophils/100 WBC (Bld) 66.8 % 47-70 [facility] Work Phone: Potassium [Moles/Vol] 4.2 mmol/L 3.5-5.1 [facility] Work Phone: Protein [Mass/Vol] 6.6 g/dL 6.4-8.2 [facility] Work Phone: Sodium [Moles/Vol] 133 mmol/L 136-145 [facility] Work Phone: WBC (Bld) [#/Vol] 5.6 10*3/uL 4.4-11.0 [facility] Work Phone: Blood erythrocytes count (nu mber/volume)on 11-24-2021 RBC (Bld) [#/Vol] 3.91 10*6/uL 4.2-5.4 [facility] Work Phone: Blood hemoglobin measurement (mass/volume)on 11-24-2021 Hemoglobin (Bld) [Mass/Vol] 11.0 g/dL 12.0-15.0 [facility] Work Phone: Blood lymphocytes/100 leukoc yteson 11-24-2021 Lymphocytes/100 WBC (Bld) 17.9 % 19-41 [facility] Work Phone: Blood monocytes/100 leukocyt eson 11-24-2021 Monocytes/100 WBC (Bld) 12.1 % 0-10 [facility] Work Phone: Blood platelet mean volumeon 11-24-2021 Platelet mean volume (Bld) [Entitic vol] 11.4 fL 6.2-12.0 [facility] Work Phone: Determination of erythrocyte mean corpuscular volume (MCV)on 11-24-2021 MCV (RBC) [Entitic vol] 83.4 fL 81-99 [facility] Work Phone: Glucose Glucometer (BldC) [M ass/Vol]on 11-24-2021 Glucose [Mass/Vol] 307 mg/dL 74-106 [facility] Work Phone: Comment on above: MANAGEMENT OF PATIEN T CARE PER NURSING PROTOCOL Glucose [Mass/Vol] 339 mg/dL 74-106 [facility] Work Phone: Comment on above: MANAGEMENT OF PATIEN T CARE PER NURSING PROTOCOL Hematocrit Auto (Bld) [Volum e fraction]on 11-24-2021 Hematocrit (Bld) [Volume fraction] 32.6 % 37-47 [facility] Work Phone: Laboratory - Chemistry and C hemistry - challengeon 11-24-2021 ALP [Catalytic activity/Vol] 116 U/L 45-117 [facility] Work Phone: ALT [Catalytic activity/Vol] 33 U/L 13-56 [facility] Work Phone: CK [Catalytic activity/Vol] 500 U/L 26-192 [facility] Work Phone: CO2 [Moles/Vol] 22.0 mmol/L 21.0-32.0 [facility] Work Phone: Globulin (S) [Mass/Vol] 4.4 g/dL 2.2-4.2 [facility] Work Phone: Magnesium [Mass/Vol] 2.3 mg/dL 1.6-2.[address] [facility] Work Phone: Urea nitrogen/Creatinine [Mass ratio] 24.3 mg/mg 10-20 [facility] Work Phone: Laboratory - Hematology and Cell countson 11-24-2021 Erythrocyte distribution width (RBC) [Entitic vol] 45.1 fL 35.1-43.9 [facility] Work Phone: Erythrocyte distribution width (RBC) [Ratio] 14.9 % 11.6-14.6 [facility] Work Phone: Immature granulocytes/100 WBC (Bld) 0.500 % 0.0-0.9 [facility] Work Phone: Comment on above: IG% - Immature Granu locytes (promyelocytes, myelocytes and metamyelocytes) > 1% indicates that a LEFT SHIFT is Present. MCH (RBC) [Entitic mass] 28.1 pg 27.0-32.0 [facility] Work Phone: Nucleated RBC/100 WBC (Bld) [Ratio] 0 % 0-5 [facility] Work Phone: MCHC Auto (RBC) [Mass/Vol]on 11-24-2021 MCHC (RBC) [Mass/Vol] 33.7 g/dL 32-36 [facility] Work Phone: No Panel Informationon 11-24 Estimated Creatinine Clearance Calc 51.54 ml/min [facility] Work Phone: Estimated GFR (MDRD) Amer 76 mL/min >60 [facility] Work Phone: Comment on above: GFR Calc Estimated GFR (MDRD) Non-Af Amer 62 mL/min >60 [facility] Work Phone: Comment on above: Non- GFR Calc Platelets bldon 11-24-2021 Platelets (Bld) [#/Vol] 107 10*3/uL 150-450 [facility] Work Phone: Serum or plasma albumin kim urement (mass/volume)on 11-24-2021 Albumin [Mass/Vol] 2.2 g/dL 3.2-5.0 [facility] Work Phone: Serum or plasma albumin/glob ulin mass ratioon 11-24-2021 Albumin/Globulin [Mass ratio] 0.5 {ratio} 0.9-2.4 [facility] Work Phone: Serum or plasma calcium kim urement (mass/volume)on 11-24-2021 Calcium [Mass/Vol] 8.5 mg/dL 8.5-10.1 [facility] Work Phone: Serum or plasma creatinine m easurement (mass/volume)on 11-24-2021 Creatinine [Mass/Vol] 0.94 mg/dL 0.55-1.02 [facility] Work Phone: Comment on above: The validity of the calculated GFR & GFRAA in patients over 70 years has not been determined. Clinical correlation is essential. Serum or plasma urea nitroge n measurement (mass/volume)on 11-24-2021 Urea nitrogen [Mass/Vol] 23 mg/dL 7-18 [facility] Work Phone: Thin prep Papanicolaou smear with manual screeningon 11-24-2021 Thin prep Papanicolaou smear with manual screening 49 U/L 15-37 [facility] Work Phone: Thin prep Papanicolaou smear with manual screening 6 5-15 [facility] Work Phone: Absolute lymphocyte counton 11-22-2021 Lymphocytes Auto (Unsp spec) [#/Vol] 0.27 10*3/uL 0.83-4.51 [facility] Work Phone: Basophil percentageon 2021 Lactate [Moles/Vol] 2.7 mmol/L 0.4-2.0 [facility] Comment on above: Critical Result(s) C alled at: 19:01:05 11/22/2021 by: Sintia Hernandez to Pamela Ely Results read back by same. Basophil percentage >100 SEEN /hpf 0-5 [facility] Work Phone: Lactate [Moles/Vol] 4.1 mmol/L 0.4-2.0 [facility]: Comment on above: Critical Result(s) C alled at: 14:35:39 11/22/2021 by: Derik Florez. To Julia Cordova RN (ER). Results read back by same. Basophils/100 WBC (Bld) 0.3 % 0-1 [facility] Work Phone: Bilirubin [Mass/Vol] 1.00 mg/dL 0.20-1.[address] [facility] Work Phone: Comment on above: For patients on eltr ombopag therapy, use of Dimension [place] TBIL is not recommended. Chloride [Moles/Vol] 97 mmol/L 98-[address] [facility] Work Phone: Eosinophils/100 WBC (Bld) 0.0 % 0-5 [facility] Work Phone: Glucose [Mass/Vol] 358 mg/dL 74-106 [facility] Work Phone: Comment on above: Glucose result great er than or equal to 200 mg/dLsuggests DIABETES MELLITUS per A.D.A. criteria. Neutrophils (Bld) [#/Vol] 2.6 10*3/uL 2.0-7.7 [facility] Work Phone: Neutrophils/100 WBC (Bld) 89.3 % 47-70 [facility] Work Phone: Potassium [Moles/Vol] 4.9 mmol/L 3.5-5.1 [facility] Work Phone: Comment on above: Moderate Hemolysis, Result may be falsely increased. Protein [Mass/Vol] 7.8 g/dL 6.4-8.2 [facility] Work Phone: Sodium [Moles/Vol] 130 mmol/L 136-145 [facility] Work Phone: WBC (Bld) [#/Vol] 2.9 10*3/uL 4.4-11.0 [facility] Work Phone: Bilirubin Test strip Ql (U)o n 11-22-2021 Bilirubin Ql (U) Negative Negative [facility] Work Phone: Blood erythrocytes count (nu mber/volume)on 11-22-2021 RBC (Bld) [#/Vol] 4.66 10*6/uL 4.2-5.4 [facility] Work Phone: Blood hemoglobin measurement (mass/volume)on 11-22-2021 Hemoglobin (Bld) [Mass/Vol] 12.9 g/dL 12.0-15.0 [facility] Work Phone: Blood lymphocytes/100 leukoc yteson 11-22-2021 Lymphocytes/100 WBC (Bld) 9.4 % 19-41 [facility] Work Phone: Blood manual differential co mment interpretation (narrative result)on 11-22-2021 Manual differential comment Neftali (Bld) [Interp] SCANNED [facility] Work Phone: Comment on above: FEW BANDS NOTED Blood monocytes/100 leukocyt eson 11-22-2021 Monocytes/100 WBC (Bld) 0.7 % 0-10 [facility] Work Phone: Blood platelet mean volumeon 11-22-2021 Platelet mean volume (Bld) [Entitic vol] 11.0 fL 6.2-12.0 [facility] Work Phone: Determination of erythrocyte mean corpuscular volume (MCV)on 11-22-2021 MCV (RBC) [Entitic vol] 83.7 fL 81-99 [facility] Work Phone: Hematocrit Auto (Bld) [Volum e fraction]on 11-22-2021 Hematocrit (Bld) [Volume fraction] 39.0 % 37-47 [facility] Work Phone: INR in Blood by Coagulation assayon 11-22-2021 INR Coag (Bld) [Relative time] 1.6 {INR} [facility] Work Phone: Ketones Test strip Ql (U)on 11-22-2021 Ketones Ql (U) 15 mg/dl Negative [facility] Work Phone: Laboratory - Chemistry and C hemistry - challengeon 11-22-2021 ALP [Catalytic activity/Vol] 170 U/L 45-117 [facility] Work Phone: ALT [Catalytic activity/Vol] 33 U/L 13-56 [facility] Work Phone: CO2 [Moles/Vol] 22.0 mmol/L 21.0-32.0 [facility] Work Phone: Globulin (S) [Mass/Vol] 5.0 g/dL 2.2-4.2 [facility] Work Phone: Urea nitrogen/Creatinine [Mass ratio] 19.1 mg/mg 10-20 [facility] Work Phone: Laboratory - Coagulationon 0 11-22-2021 aPTT Coag (Bld) [Time] 33.5 s 24.1-36.2 [facility] Work Phone: PT Coag (PPP) [Time] 18.6 s 11.7-14.[address] [facility] Work Phone: Laboratory - Hematology and Cell countson 11-22-2021 Erythrocyte distribution width (RBC) [Entitic vol] 44.4 fL 35.1-43.9 [facility] Work Phone: Erythrocyte distribution width (RBC) [Ratio] 14.6 % 11.6-14.6 [facility] Work Phone: Immature granulocytes/100 WBC (Bld) 0.300 % 0.0-0.9 [facility] Work Phone: Comment on above: IG% - Immature Granu locytes (promyelocytes, myelocytes and metamyelocytes) > 1% indicates that a LEFT SHIFT is Present. MCH (RBC) [Entitic mass] 27.7 pg 27.0-32.0 [facility] Work Phone: Nucleated RBC/100 WBC (Bld) [Ratio] 0 % 0-5 [facility] Work Phone: Laboratory - Microbiology an d Antimicrobial susceptibilityon 11-22-2021 SARS-CoV-2 (COVID-19) RNA SALLY+probe Ql (Unsp spec) Not detected Not Detect [facility] Work Phone: Comment on above: Normal Reference Ran ge: Not DetectedMethod:(RT-PCR) real-time reverse transcriptase PCRLuminex Filter Foundry Instrument*The Food and Drug Administration (FDA) has issued an Emergency Use Authorization (EAU) for the Filter Foundry SARS-CoV-2 Assay for the rapid detection of the virus that causes COVID-19. This test has been validated, but the FDAs independent review of this validation is pending.*Negative results do not preclude infection and should not be used as the sole basis for treatment or patient management. Optimum specimen types and timing for peak viral levels during infections caused by SARS-CoV-2 have not been determined. Collection of multiple specimens from the same patient may be necessary to detect the virus. The possibility of a false negative result should be considered if the patient has clinical presentation or has had recent exposure. MCHC Auto (RBC) [Mass/Vol]on 11-22-2021 MCHC (RBC) [Mass/Vol] 33.1 g/dL 32-36 [facility] Work Phone: Mucus LM Ql (Urine sed)on Mucus Ql (Urine sed) 0 SEEN /hpf [facility] Work Phone: Nitrite Test strip Ql (U)on 11-22-2021 Nitrite Ql (U) Negative Negative [facility] Work Phone: No Panel Informationon 11-22 Troponin I High Sensitivity 217 pg/mL 3.0-54.0 [facility] Work Phone: Comment on above: Critical Result(s) C alled at: 20:27:57 11/22/2021 by: Sintia Hernandez to Anthony Butcher. Results read back by same. Please Note: New Test Units and Gender Specific Reference Ranges. For more information see Policy Stat Procedure [place] High Sensitivity Troponin (TNIH) and attachments. Troponin I High Sensitivity 274 pg/mL 3.0-54.0 [facility] Work Phone: Comment on above: Critical Result(s) C alled at: 17:12:08 11/22/2021 by: Sintia Hernandez by Lila Cordova. Results read back by same. Please Note: New Test Units and Gender Specific Reference Ranges. For more information see Policy Stat Procedure [place] High Sensitivity Troponin (TNIH) and attachments. Estimated Creatinine Clearance Calc 34.36 ml/min [facility] Work Phone: Estimated GFR (MDRD) Amer 48 mL/min >60 [facility] Work Phone: Comment on above: GFR Calc Estimated GFR (MDRD) Non-Af Amer 39 mL/min >60 [facility] Work Phone: Comment on above: Non- GFR Calc Platelets bldon 11-22-2021 Platelets (Bld) [#/Vol] 121 10*3/uL 150-450 [facility] Work Phone: Protein Test strip Ql (U)on 11-22-2021 Protein Ql (U) 100 mg/dl Negative [facility] Work Phone: Review by pathologiston 11-04 Pathologist review Neftali (Unsp spec) [Interp] Analisa jacobson [facility] Work Phone: Pathologist review Neftali (Unsp spec) [Interp] Reviewed [facility] Work Phone: Comment on above: Previous reported re sult: Analisa jacobson Edited by: RGOOD on 11/23/21:1334LeukopeniaMild Thrombocytopenia.Clinical correlation necessary.Cedric Cardoza M.D. 11/23/21 AMENDED REPORT 11/23/21 1334 PATH REV previously reported as: May foll Serum or plasma albumin kim urement (mass/volume)on 11-22-2021 Albumin [Mass/Vol] 2.8 g/dL 3.2-5.0 [facility] Work Phone: Serum or plasma albumin/glob ulin mass ratioon 11-22-2021 Albumin/Globulin [Mass ratio] 0.6 {ratio} 0.9-2.4 [facility] Work Phone: Serum or plasma calcium kim urement (mass/volume)on 11-22-2021 Calcium [Mass/Vol] 8.9 mg/dL 8.5-10.1 [facility] Work Phone: Serum or plasma creatinine m easurement (mass/volume)on 11-22-2021 Creatinine [Mass/Vol] 1.41 mg/dL 0.55-1.02 [facility] Work Phone: Comment on above: The validity of the calculated GFR & GFRAA in patients over 70 years has not been determined. Clinical correlation is essential. Serum or plasma urea nitroge n measurement (mass/volume)on 11-22-2021 Urea nitrogen [Mass/Vol] 27 mg/dL 7-18 [facility] Work Phone: Squamous epithelial cells de tection in urine sediment by light microscopyon 11-22-2021 Epithelial cells.squamous LM Ql (Urine sed) 0 SEEN /hpf 5-10 [facility] Work Phone: Thin prep Papanicolaou smear with manual screeningon 11-22-2021 Thin prep Papanicolaou smear with manual screening 65 U/L 15-37 [facility] Work Phone: Comment on above: Moderate Hemolysis, Result may be falsely increased. Thin prep Papanicolaou smear with manual screening 11 5-15 [facility] Work Phone: Urine blood detectionon 11-04 RBC Ql (U) 250 /ul Negative [facility] Work Phone: RBC Ql (U) 0 SEEN /hpf 0-5 [facility] Work Phone: Urine clarityon 11-22-2021 Clarity (U) Cloudy Clear [facility] Work Phone: Urine color determinationon 11-22-2021 Color (U) Yellow Yellow [facility] Work Phone: Urine glucose detectionon Glucose Ql (U) 250 mg/dl Normal [facility] Work Phone: Urine leukocyte esterase det ection by dipstickon 11-22-2021 Leukocyte esterase Test strip Ql (U) 500 /ul Negative [facility] Work Phone: Urine pHon 11-22-2021 pH (U) 6.0 [pH] 5.0 - 8.0 [facility] Work Phone: Urine sediment bacteria coun t by microscopy (number/high power field)on 11-22-2021 Bacteria LM.HPF (Urine sed) [#/Area] 3 /[HPF] None Seen [facility] Work Phone: Urine specific gravity measu rementon 11-22-2021 Specific gravity (U) [Rel density] 1.020 1.002-1.03 0 [facility] Work Phone: Urobilinogen Auto test strip Ql (U)on 11-22-2021 Urobilinogen Ql (U) Normal mg/dl Normal [facility] Work Phone: Whole blood hemoglobin A1c/t otal hemoglobin ratio (mass fraction)on 11-22-2021 HbA1c (Bld) [Mass fraction] 10.2 % 3.8-5.6 [facility] Work Phone: Comment on above: Normal < 5.7 % Predi abetic 5.7 - 6.4 % Diabetic >or= 6.5 % Please note range changes. Whole blood hemoglobin A1c/t otal hemoglobin ratio (mass fraction)on 10-27-2021 HbA1c (Bld) [Mass fraction] 8.3 % 3.8-5.6 [facility] Work Phone: Comment on above: Normal < 5.7 % Predi abetic 5.7 - 6.4 % Diabetic >or= 6.5 % Please note range changes. Absolute lymphocyte counton 10-13-2021 Lymphocytes Auto (Unsp spec) [#/Vol] 1.22 10*3/uL 0.83-4.51 [facility] Work Phone: Basophil percentageon 2021 Basophils/100 WBC (Bld) 0.3 % 0-1 [facility] Work Phone: Bilirubin [Mass/Vol] 0.50 mg/dL 0.20-1.[address] [facility] Work Phone: Comment on above: For patients on eltr ombopag therapy, use of Dimension [place] TBIL is not recommended. Chloride [Moles/Vol] 102 mmol/L 98-[address] [facility] Work Phone: Eosinophils/100 WBC (Bld) 1.7 % 0-5 [facility] Work Phone: Glucose [Mass/Vol] 259 mg/dL 74-106 [facility] Work Phone: Comment on above: Glucose result great er than or equal to 200 mg/dLsuggests DIABETES MELLITUS per A.D.A. criteria. Neutrophils (Bld) [#/Vol] 5.1 10*3/uL 2.0-7.7 [facility] Work Phone: Neutrophils/100 WBC (Bld) 70.8 % 47-70 [facility] Work Phone: Potassium [Moles/Vol] 4.4 mmol/L 3.5-5.1 [facility] Work Phone: Protein [Mass/Vol] 7.4 g/dL 6.4-8.2 [facility] Work Phone: Sodium [Moles/Vol] 134 mmol/L 136-145 [facility] Work Phone: WBC (Bld) [#/Vol] 7.1 10*3/uL 4.4-11.0 [facility] Work Phone: Blood erythrocytes count (nu mber/volume)on 10-13-2021 RBC (Bld) [#/Vol] 4.21 10*6/uL 4.2-5.4 [facility] Work Phone: Blood hemoglobin measurement (mass/volume)on 10-13-2021 Hemoglobin (Bld) [Mass/Vol] 12.1 g/dL 12.0-15.0 [facility] Work Phone: Blood lymphocytes/100 leukoc yteson 10-13-2021 Lymphocytes/100 WBC (Bld) 17.1 % 19-41 [facility] Work Phone: Blood monocytes/100 leukocyt eson 10-13-2021 Monocytes/100 WBC (Bld) 9.8 % 0-10 [facility] Work Phone: Blood platelet mean volumeon 10-13-2021 Platelet mean volume (Bld) [Entitic vol] 10.7 fL 6.2-12.0 [facility] Work Phone: Determination of erythrocyte mean corpuscular volume (MCV)on 10-13-2021 MCV (RBC) [Entitic vol] 86.2 fL 81-99 [facility] Work Phone: Hematocrit Auto (Bld) [Volum e fraction]on 10-13-2021 Hematocrit (Bld) [Volume fraction] 36.3 % 37-47 [facility] Work Phone: Laboratory - Chemistry and C hemistry - challengeon 10-13-2021 ALP [Catalytic activity/Vol] 169 U/L 45-117 [facility] Work Phone: ALT [Catalytic activity/Vol] 31 U/L 13-56 [facility] Work Phone: CO2 [Moles/Vol] 25.0 mmol/L 21.0-32.0 [facility] Work Phone: Globulin (S) [Mass/Vol] 4.5 g/dL 2.2-4.2 [facility] Work Phone: Urea nitrogen/Creatinine [Mass ratio] 14.3 mg/mg 10-20 [facility] Work Phone: Laboratory - Hematology and Cell countson 10-13-2021 Erythrocyte distribution width (RBC) [Entitic vol] 45.6 fL 35.1-43.9 [facility] Work Phone: Erythrocyte distribution width (RBC) [Ratio] 14.4 % 11.6-14.6 [facility] Work Phone: Immature granulocytes/100 WBC (Bld) 0.300 % 0.0-0.9 [facility] Work Phone: Comment on above: IG% - Immature Granu locytes (promyelocytes, myelocytes and metamyelocytes) > 1% indicates that a LEFT SHIFT is Present. MCH (RBC) [Entitic mass] 28.7 pg 27.0-32.0 [facility] Work Phone: Nucleated RBC/100 WBC (Bld) [Ratio] 0 % 0-5 [facility] Work Phone: MCHC Auto (RBC) [Mass/Vol]on 10-13-2021 MCHC (RBC) [Mass/Vol] 33.3 g/dL 32-36 [facility] Work Phone: No Panel Informationon 10-13 Estimated GFR (MDRD) Amer 79 mL/min >60 [facility] Work Phone: Comment on above: GFR Calc Estimated GFR (MDRD) Non-Af Amer 66 mL/min >60 [facility] Work Phone: Comment on above: Non- GFR Calc Vitamin D 25-Hydroxy 67.4 ng/mL [facility] Work Phone: Comment on above: Vitamin D 25(OH) Sta tus Range Deficiency <20 ng/mL (50nmol/L) Insufficiency 20 - 30 ng/mL (50 - 75 nmol/L) Sufficiency 30 - 100 ng/mL (75 - 250 nmol/L) Toxicity >100 ng/mL (>250 nmol/L) Platelets bldon 10-13-2021 Platelets (Bld) [#/Vol] 158 10*3/uL 150-450 [facility] Work Phone: Serum or plasma albumin kim urement (mass/volume)on 10-13-2021 Albumin [Mass/Vol] 2.9 g/dL 3.2-5.0 [facility] Work Phone: Serum or plasma albumin/glob ulin mass ratioon 10-13-2021 Albumin/Globulin [Mass ratio] 0.6 {ratio} 0.9-2.4 [facility] Work Phone: Serum or plasma calcium kim urement (mass/volume)on 10-13-2021 Calcium [Mass/Vol] 8.8 mg/dL 8.5-10.1 [facility] Work Phone: Serum or plasma creatinine m easurement (mass/volume)on 10-13-2021 Creatinine [Mass/Vol] 0.91 mg/dL 0.55-1.02 [facility] Work Phone: Comment on above: The validity of the calculated GFR & GFRAA in patients over 70 years has not been determined. Clinical correlation is essential. Serum or plasma urea nitroge n measurement (mass/volume)on 10-13-2021 Urea nitrogen [Mass/Vol] 13 mg/dL 7-18 [facility] Work Phone: Thin prep Papanicolaou smear with manual screeningon 10-13-2021 Thin prep Papanicolaou smear with manual screening 28 U/L 15-37 [facility] Work Phone: Thin prep Papanicolaou smear with manual screening 7 5-15 [facility] Work Phone: CNOVSPon 10-02-2021 CNOVSP Visit (SP) Office (AGGYNONPOB) ----- VIDA NINA ([id number]) 1950 F Date Time Provider Department 10/02/21 1:00 PM JENNIFER CUEVAS During your visit today, we recorded the following information about you: Temperature Pulse Respiration Blood pressure 97.4 degrees 103/minute 20/minute 152/85 Weight Height 136.5 kg 1.651 m Moriah Aldridge RN 10/02/2021 12:52 PM Signed Patient arrived amb AANDOx4 in [facility] for post op visit. Patient admits to pain in abd and lower back resolved since surgery. Pt denies any new concerns, today. Pt here with sepideh [place]. Enc and support provided. JESUS Lynch MD 12/01/2021 8:04 AM Signed Gynecologic Oncology [facility] Follow up visit Date of service: 10/02/2021 PROBLEM/CC: Vida Nina presents for a post-op visit. SURGICAL PATHOLOGY [[id number]] Collected: 09/07/21 1104 Order Status: Completed Specimen: Tissue from UTERUS, CERVIX, BILATERAL FALLOPIAN TUBES AND BILATERAL OVARIES Updated: 09/11/21 1319 Case Report -- Surgical Pathology Report ? Case: [id number] ? Authorizing Provider: ?Jennifer Cuevas MD ? ? ?Collected: ? 09/07/2021 11:04 [...] A11 and A16 were reviewed at the [facility] gynecologic pathology consensus conference via telepathology on 09/09/[address] Lupe Younger and Andra Franco agree with the diagnosis of acute salpingitis. ? Laboratory Developed Test (LDT) Disclaimer: Performance characteristics of immunohistochemical, immunofluorescent and chromogenic in-situ hybridization tests have been determined by the performing laboratory within [facility]?reji [facility] Laboratory Medicine [place] ([facility], [facility], [facility] or [facility]) in a manner consistent with CLIA requirements. [...] identified ?? Uterine Serosa Involvement: ? ?Not iden (more content not included)... Normal [facility] Glucose Glucometer (BldC) [M ass/Vol]on 09-22-2021 Glucose [Mass/Vol] 145 mg/dL 74-106 [facility] Work Phone: Comment on above: MANAGEMENT OF PATIEN T CARE PER NURSING PROTOCOL Darren 09-21-2021 CNPN Telephone (ÁNGEL Sprague) ----- VIDA NINA ([id number]) 1950 F Date Time Provider Department 09/21/21 JENNIFER CUEVAS During your visit today, we recorded the following information about you: Jeffrey Ferris 09/21/2021 12:15 PM Signed Spoke to Nurse Bernadine from [facility] stated that the patient is in the hospital and she will call when the patient comes out. So 09/22/21 appt in this office with Dr. Cuevas has been cancelled. Jeffrey Ferris 09/21/21 Allergies As of Date: 09/21/2021 Noted Allergy Reaction CIPROFLOXACIN 08/11/2005 12 - Shortness of Breath 10 - Anaphylaxis FISH CONTAINING PRODUCTS 02/10/2016 4 - Hives RED DYE 02/10/2016 4 - Hives IODINATED CONTRAST MEDIA 02/28/2019 2 - Rash METFORMIN 11/20/2016 6 - Diarrhea 8 - GI Upset 11 - Vomiting PENICILLINS 07/15/2005 2 - Rash SHELLFISH DERIVED 02/28/2019 6 - Diarrhea 11 - Vomiting SULFA (SULFONAMIDE ANTIBIOTICS) 07/15/2005 2 - Rash MOLD 09/07/2021 2 - Rash PALIPERIDONE 11/20/2016 2 - Rash Date Reviewed: 09/07/2021 Reviewed by: Bertha Stringer RN - Fully Assessed Reason for Visit: Appointment Cancelled [1023] Prescriptions as of 09/21/2021 - polyethylene glycol 3350 (MIRALAX, GLYCOLAX) 17 gram packet Take 1 Packet by mouth once daily. Dissolve dose in 4 - 8 ounces of liquid and take as directed. - acetaminophen (TYLENOL) 325 mg tablet Take 2 tablets by mouth every 6 hours for 14 days. - ibuprofen (MOTRIN) 600 mg tablet Take 1 tablet by mouth every 6 hours for 14 days. - traMADol (ULTRAM) 50 mg tablet Take 1 tablet by mouth every 6 hours as needed for pain. - mag hydrox/aluminum hyd/simeth (ANTACID SUSPENSION ORAL) Take 30 mL by mouth. Every 4 hrs as needed - Miconazole powd twice daily. - atorvastatin (LIPITOR) 40 mg tablet Take 40 mg by mouth daily at bedtime. - dextrose (GLUCOSE GEL ORAL) Take by mouth. - insulin lispro (HUMALOG) 100 unit/mL injection Inject subcutaneously three times daily before meals. - insulin glargine (LANTUS SOLOSTAR U-100 INSULIN) 100 unit/mL (3 mL) Inject 65 Units subcutaneously daily at bedtime. - lisinopril (ZESTRIL, PRINIVIL) 5 mg tablet [...] tablets by mouth daily at bedtime. - clonazePAM (KLONOPIN) 0.5 mg tablet Take 1 tablet by mouth three times daily as needed. - lamoTRIgine (LAMICTAL) 100 mg tablet Take 1 tablet by mouth once daily. Problem List As Of Date 09/21/2021 Noted Resolved TOBACCO USE DISORDER [F17.200] 07/15/2005 SYSTEMIC LUPUS ERYTHEMATOSUS [M32.9] 07/15/2005 MYALGIA AND MYOSITIS NOS [OHF0916] 07/15/2005 Elevated transaminase level [R74.01] 09/04/2014 Elevated blood sugar [R73.9] 09/04/2014 Mood disorder (HCC) [F39] 09/04/2014 Hard to intubate [T88.4XXA] 09/07/2021 Encounter for postoperative care [Z48.89] 09/07/2021 Endometrial cancer (HCC) [C54.1] 09/08/2021 Encounter Status:Closed by JEFFREY FERRIS on 09/21/21 [facility] Absolute lymphocyte counton 09-20-2021 Lymphocytes Auto (Unsp spec) [#/Vol] 0.99 10*3/uL 0.83-4.51 [facility] Work Phone: Basophil percentageon 2021 Basophils/100 WBC (Bld) 0.6 % 0-1 [facility] Work Phone: Chloride [Moles/Vol] 109 mmol/L 98-[address] [facility] Work Phone: Eosinophils/100 WBC (Bld) 2.6 % 0-5 [facility] Work Phone: Glucose [Mass/Vol] 211 mg/dL 74-106 [facility] Work Phone: Comment on above: Glucose result great er than or equal to 200 mg/dLsuggests DIABETES MELLITUS per A.D.A. criteria. Neutrophils (Bld) [#/Vol] 3.4 10*3/uL 2.0-7.7 [facility] Work Phone: Neutrophils/100 WBC (Bld) 67.6 % 47-70 [facility] Work Phone: Potassium [Moles/Vol] 4.4 mmol/L 3.5-5.1 [facility] Work Phone: Sodium [Moles/Vol] 138 mmol/L 136-145 [place] [facility] Work Phone: WBC (Bld) [#/Vol] 5.0 10*3/uL 4.4-11.0 [facility] Work Phone: Blood erythrocytes count (nu mber/volume)on 09-20-2021 RBC (Bld) [#/Vol] 4.50 10*6/uL 4.2-5.[facility]: Blood hemoglobin measurement (mass/volume)on 09-20-2021 Hemoglobin (Bld) [Mass/Vol] 12.8 g/dL 12.0-15.0 [facility] Work Phone: Blood lymphocytes/100 leukoc yteson 09-20-2021 Lymphocytes/100 WBC (Bld) 19.7 % 19-41 [facility] Work Phone: Blood monocytes/100 leukocyt eson 09-20-2021 Monocytes/100 WBC (Bld) 9.1 % 0-10 [facility] Work Phone: Blood platelet mean volumeon 09-20-2021 Platelet mean volume (Bld) [Entitic vol] 9.8 fL 6.2-12.0 [facility] Work Phone: Determination of erythrocyte mean corpuscular volume (MCV)on 09-20-2021 MCV (RBC) [Entitic vol] 87.6 fL 81-99 [facility] Work Phone: Hematocrit Auto (Bld) [Volum e fraction]on 09-20-2021 Hematocrit (Bld) [Volume fraction] 39.4 % 37-47 [facility] Work Phone: Laboratory - Chemistry and C hemistry - challengeon 09-20-2021 CO2 [Moles/Vol] 24.0 mmol/L 21.0-32.0 [facility] Work Phone: Natriuretic peptide B (Bld) [Mass/Vol] 43.0 pg/mL 0-100 [facility] Work Phone: Urea nitrogen/Creatinine [Mass ratio] 14.0 mg/mg 10-20 [facility] Work Phone: Laboratory - Hematology and Cell countson 09-20-2021 Erythrocyte distribution width (RBC) [Entitic vol] 47.4 fL 35.1-43.9 [facility] Work Phone: Erythrocyte distribution width (RBC) [Ratio] 14.7 % 11.6-14.6 [facility] Work Phone: Immature granulocytes/100 WBC (Bld) 0.400 % 0.0-0.9 [facility] Work Phone: Comment on above: IG% - Immature Granu locytes (promyelocytes, myelocytes and metamyelocytes) > 1% indicates that a LEFT SHIFT is Present. MCH (RBC) [Entitic mass] 28.4 pg 27.0-32.0 [facility] Work Phone: Nucleated RBC/100 WBC (Bld) [Ratio] 0 % 0-5 [facility] Work Phone: MCHC Auto (RBC) [Mass/Vol]on 09-20-2021 MCHC (RBC) [Mass/Vol] 32.5 g/dL 32-36 [facility] Work Phone: No Panel Informationon 09-20 Troponin I High Sensitivity < 3 pg/mL 3.0-54.0 [facility] Work Phone: Comment on above: Please Note: New Emma t Units and Gender Specific Reference Ranges. For more information see Policy Stat Procedure [place] High Sensitivity Troponin (TNIH) and attachments. D-Dimer Quantitative (PE/DVT) 2.47 FEU/ug/m 0.27-0.49 [facility] Work Phone: Comment on above: D-Dimer ELEVATED (>0 .49): Additional studies and clinicalassessments are indicated to conclude diagnosis of:Deep Vein Thrombosis (DVT) or Pulmonary Embolism (PE)CRITICAL VALUE VERIFIED. CALLED TO [id number]/17/22 0853 Taniya Burden.RESULTS READ BACK BY SAME . Estimated Creatinine Clearance Calc 56.34 ml/min [facility] Work Phone: Estimated GFR (MDRD) Amer 85 mL/min >60 [facility] Work Phone: Comment on above: GFR Calc Estimated GFR (MDRD) Non-Af Amer 70 mL/min >60 [facility] Work Phone: Comment on above: Non- GFR Calc Platelets bldon 09-20-2021 Platelets (Bld) [#/Vol] 161 10*3/uL 150-450 [facility] Work Phone: Serum or plasma calcium kim urement (mass/volume)on 09-20-2021 Calcium [Mass/Vol] 9.4 mg/dL 8.5-10.1 [facility] Work Phone: Serum or plasma creatinine m easurement (mass/volume)on 09-20-2021 Creatinine [Mass/Vol] 0.86 mg/dL 0.55-1.02 [facility] Work Phone: Comment on above: The validity of the calculated GFR & GFRAA in patients over 70 years has not been determined. Clinical correlation is essential. Serum or plasma urea nitroge n measurement (mass/volume)on 09-20-2021 Urea nitrogen [Mass/Vol] 12 mg/dL 7-18 [facility] Work Phone: Thin prep Papanicolaou smear with manual screeningon 09-20-2021 Thin prep Papanicolaou smear with manual screening 5 5-15 [facility] Work Phone: OPERATIVE NOon 09-17-2021 OPERATIVE NO HNO ID: [id number] Author: Jennifer Cuevas MD Service: Gynecology Oncology Author Type: Physician Type: Operative Report Filed: 09/23/2021 10:50 AM Note Text: [facility] - Operative Report VIDA NINA : 1950 AGE: 70. SEX: F PATIENT TYPE: I [facility] [place] [facility] LOCATION: [facility] [place] ATTENDING PHYSICIAN: Jennifer Cuevas M.D. CSN NUMBER: [id number] DATE OF SURGERY/PROCEDURE: 09/07/2021 INCISION/PROCEDURE START TIME: 09:14 a.m. INCISION CLOSE/PROCEDURE END TIME: 12:36 p.m. 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 SURGEON: Jennifer Cuevas M.D. HAND SPRAY OPERATOR: journeyman operator assistant, Dr. Donal Naidu and Dr. Shanon Seymour. SURGERY/PROCEDURE: Total laparoscopic hysterectomy, bilateral salpingo- oophorectomy, laparoscopic lysis of extensive intraabdominal adhesions. ANESTHESIA: General Dr. Cuevas, present during the entire procedure. ESTIMATED BLOOD LOSS: 75 mL. COMPLICATIONS: None. SPECIMENS SENT: Uterus with cervix, tubes, and ovaries, and a urine culture. INDICATIONS FOR PROCEDURE: 70-year-old female with postmenopausal bleeding, who had an endometrial biopsy showing grade 2 endometrioid adenocarcinoma. She was referred to my office where she was counseled regarding these findings and examined; and a plan for hysterectomy, bilateral salpingo-oophorectomy, and sentinel node assessment was planned. She is obese, weighing 284 pounds, most of due to her abdomen and BMI of over 47. The potential extent and risks of surgery had been discussed with her. OPERATIVE FINDINGS: Vagina and cervix had no evidence of abnormality. On laparoscopic assessment, she had no evidence of carcinomatosis. There were no ascites. There were omental adhesions below the umbilicus, which required lysis. There were extensive adhesions in the pelvis involving both adnexa to the cul-de- sac, bladder peritoneum to the fundus, sigmoid to the adnexa and posterior aspect of the uterus. 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 Frozen section assessment after the uterus was sent to Pathology showed a malignancy, apparently low-grade, but invading over 50% of the myometrium. After lysis of adhesions and opening up the retroperitoneum, there had been a significant length of time such that sentinel nodes could no longer be identified given the extensive staining with ICG in the retroperitoneum. After the frozen section results were returned, and it was determined that adjuvant therapy was likely to be recommended, decision was made to forego laparoscopic bilateral lymphadenectomy secondary to her morbid obesity and difficulty in assessing the retroperitoneal vessels. DESCRIPTION OF PROCEDURE: After huddle had been performed in the perioperative area and she was brought to the operating room. She was given general anesthesia by endotracheal intubation. The abdomen, perineum, and vagina were prepped and draped in a sterile manner. Arms had been carefully tucked at her sides. Legs were in sequential compression devices and Dean stirrups. A Connell catheter was placed. A decision was made to place the uterine manipulator after getting into the abdomen. An incision was made just above the umbilicus and carried down to the underlying fascia. Fascia was nicked with a knife and the edges marked with 0 Vicryl suture. The peritoneum was tented and the peritoneal cavity entered sharply without injury to the underlying structures. A 10 mm balloon port was placed. Inspection revealed significant omental adhesions in the periumbilical area. There was a clear view to the right lower abdomen where a 5 mm port was placed. Using this port for viewing, it was possible to see the left lower abdomen where another 5 mm port could then be placed. Lysis of omental adhesions on the anterior abdomen interfering with visualization of the pelvic was then performed with the LigaSure device. Once these adhesions were dropped down, inspection of the pelvis was performed after putting the patient into Trendelenburg position. There were extensive adhesions involving the pelvic structures as described above. It was possible to see the fundus and at this point, cervical cup and uterine manipulator using the VCare device were placed. Prior to this time, ICG dye had been injected into the cervix at the 3 o'clock and 9 o'clock position with a total volume of 3 mL. The adhesiolysis was then begun, which took approximately 1 hour to free up the adhesions from the adnexa, sigmoid colon to the uterus, and the bladder to the uterus. Once these adhesions, which were relatively filmy, not appearing to be malignant, was done, the round ligaments were sealed and divided and the incision was made in the peritoneum parallel to the infundibulopelvic ligaments, which (more content not included)... Normal [facility] Bilirubin Test strip Ql (U)o n 09-10-2021 Bilirubin Ql (U) Negative Negative [facility] Work Phone: Darren 09-10-2021 SHORTY Telephone (ÁNGEL Sprague) ----- VIDA NINA ([id number]) 1950 F Date Time Provider Department 09/10/21 TANIYA BALDERAS During your visit today, we recorded the following information about you: Taniya Balderas APRN.MICHELLE 09/10/2021 8:32 AM Signed Called [facility] left message on nurse line to call [...] to. meds that are susceptible are iv. longterm can recheck urine if still + then would need to get ID involved verbal instructions per Dr julieth Balderas APRN.EQUINE INTERN Allergies As of Date: 09/10/2021 Noted Allergy Reaction CIPROFLOXACIN 08/11/2005 12 - Shortness of Breath 10 - Anaphylaxis FISH CONTAINING PRODUCTS 02/10/2016 4 - Hives RED DYE 02/10/2016 4 - Hives IODINATED CONTRAST MEDIA 02/28/2019 2 - Rash METFORMIN 11/20/2016 6 - Diarrhea 8 - GI Upset 11 - Vomiting PENICILLINS 07/15/2005 2 - Rash SHELLFISH DERIVED 02/28/2019 6 - Diarrhea 11 - Vomiting SULFA (SULFONAMIDE ANTIBIOTICS) 07/15/2005 2 - Rash MOLD 09/07/2021 2 - Rash PALIPERIDONE 11/20/2016 2 - Rash Date Reviewed: 09/07/2021 Reviewed by: Bertha Stringer RN - Fully Assessed Reason for Visit: Results [95] Prescriptions as of 09/10/2021 - nitrofurantoin monohydrate and macrocrystal (MACROBID) 100 mg capsule Take 1 capsule by mouth twice daily with meals for 10 doses. - polyethylene glycol 3350 (MIRALAX, GLYCOLAX) 17 gram packet Take 1 Packet by mouth once daily. Dissolve dose in 4 - 8 ounces of liquid and take as directed. - acetaminophen (TYLENOL) 325 mg tablet Take 2 tablets by mouth every 6 hours for 14 days. - ibuprofen (MOTRIN) 600 mg tablet Take 1 tablet by mouth every 6 hours for 14 days. - traMADol (ULTRAM) 50 mg tablet Take 1 tablet by mouth every 6 hours as needed for pain. - mag hydrox/aluminum hyd/simeth (ANTACID SUSPENSION ORAL) Take 30 mL by mouth. Every 4 hrs as needed - Miconazole powd twice daily. - atorvastatin (LIPITOR) 40 mg tablet Take 40 mg by mouth daily at bedtime. - dextrose (GLUCOSE GEL ORAL) Take by mouth. - insulin lispro (HUMALOG) 100 unit/mL injection Inject subcutaneously three times daily before meals. - insulin glargine (LANTUS SOLOSTAR U-100 INSULIN) 100 unit/mL (3 mL) Inject 65 Units subcutaneously daily at bedtime. - lisinopril (ZESTRIL, PRINIVIL) 5 mg tablet [...] tablets by mouth daily at bedtime. - clonazePAM (KLONOPIN) 0.5 mg tablet Take 1 tablet by mouth three times daily as needed. - lamoTRIgine (LAMICTAL) 100 mg tablet Take 1 tablet by mouth once daily. Problem List As Of Date 09/10/2021 Noted Resolved TOBACCO USE DISORDER [F17.200] 07/15/2005 SYSTEMIC LUPUS ERYTHEMATOSUS [M32.9] 07/15/2005 MYALGIA AND MYOSITIS NOS [BCY8344] 07/15/2005 Elevated transaminase level [R74.01] 09/04/2014 Elevated blood sugar [R73.9] 09/04/2014 Mood disorder (HCC) [F39] 09/04/2014 Hard to intubate [T88.4XXA] 09/07/2021 Encounter for postoperative care [Z48.89] 09/07/2021 Endometrial cancer (HCC) [C54.1] 09/08/2021 Encounter Status:Closed by TANIYA BALDERAS on 09/10/21 Normal [facility] Culture, urineon 09-10-2021 Bacteria identified Cx Nom (U) Negative [facility] Work Phone: Ketones Test strip Ql (U)on 09-10-2021 Ketones Ql (U) Negative Negative [facility] Work Phone: Nitrite Test strip Ql (U)on 09-10-2021 Nitrite Ql (U) Negative Negative [facility] Work Phone: Protein Test strip Ql (U)on 09-10-2021 Protein Ql (U) Negative Negative [facility] Work Phone: Urine blood detectionon RBC Ql (U) 25 /ul Negative [facility] Work Phone: Urine clarityon 09-10-2021 Clarity (U) Clear Clear [facility] Work Phone: Urine color determinationon 09-10-2021 Color (U) Yellow Yellow [facility] Work Phone: Urine glucose detectionon Glucose Ql (U) Normal mg/dl Normal [facility] Work Phone: Urine leukocyte esterase det ection by dipstickon 09-10-2021 Leukocyte esterase Test strip Ql (U) 25 /ul Negative [facility] Work Phone: Urine pHon 09-10-2021 pH (U) 7.0 [pH] 5.0 - 8.0 [facility] Work Phone: Urine specific gravity measu rementon 09-10-2021 Specific gravity (U) [Rel density] 1.005 1.002-1.03 0 [facility] Work Phone: Urobilinogen Auto test strip Ql (U)on 09-10-2021 Urobilinogen Ql (U) Normal mg/dl Normal [facility] Work Phone: ANES POSTPROC EVALon 022 ANES POSTPROC EVAL HNO ID: [id number] Author: Darrion Payne MD Service: Anesthesiology Author Type: Physician Type: Anesthesia Postprocedure Evaluation Filed: 09/09/2021 12:30 PM Note Text: POST ANESTHESIA EVALUATION NOTE : 1950 Procedure Summary Date: 09/07/21 Room / Location: PR OR [address] [place] [address] OR Anesthesia Start: 812 Anesthesia Stop: 1242 Procedures: EXAM UNDER ANESTHESIA PELVIC / VAGINAL (N/A Pelvis) LAPAROSCOPIC HYSTERECTOMY TOTAL FOR UTERUS 250 G OR LESS W/REMOVAL TUBE(S) AND/OR OVARY(S) (N/A Abdomen) Diagnosis: Endometrial cancer (HCC) Surgeons: Jennifer Cuevas MD Responsible Provider: Darrion Payne MD Anesthesia Type: general ASA Status: 3 Anesthesia Type: general Airway Type: ETT Last Vitals Vitals Value Taken Time BP 157/90 09/07/21 1508 Temp 36.5 ?C (97.7 ?F) 09/07/21 1500 Pulse 88 09/07/21 1508 Resp 43 09/07/21 1508 SpO2 97 % 09/07/21 1508 Vitals shown include unvalidated device data. Post Anesthesia Patient Status Patient Evaluation: bedside. Intraoperative Events: no significant anesthesia events Anesthesia Observations No Documentation SIGNATURE: Darrion Payne MD PATIENT NAME: Vida Nina DATE: September 09, 2021 TIME: 12:30 PM CSN: [id number] Normal [facility] CNPNon 09-09-2021 CNPN Telephone (AGGYNONPO B) ----- PAULVIDA ([id number]) 1950 F Date Time Provider Department 09/09/21 JENNIFER CUEVAS During your visit today, we recorded the following information about you: Summer Turcios RN 09/09/2021 2:15 PM Signed Franklin, skilled nursing facilities professional at [facility] called stated, one of patient's lap sites opened a little and a scant amount of blood was noted. Franklin stated they reinforced the surgical glue/lap site with steri-strips. No other issues at this time. Per Franklin, patient continues with some tenderness, taking Tylenol and Mortin. Stated Tramadol should be delivered from the pharmacy today. He is calling to make sure there is nothing additional you would like them to do, please advise. Thanks! (this message sent to Sebas Cuevas MD via confidential e-mail). JESUS hSah RN 09/09/2021 2:53 PM Addendum Per Sebas Cuevas MD: Nothing else to do. ( message sent to this RN via confidential e-mail) Attempted to call Franklin at [facility] to review above message, no answer. Left message on voicemail to return call. JESUS Shah RN 09/09/2021 2:53 PM Signed Franklin from [facility] returned call to this RN. Reviewed message from Sebas Cuevas MD. Instructed Franklin to monitor patient's lap site and call office if worsens or if any other complications arise. Franklin verbalized understanding. Summer Turcios RN Allergies As of Date: 09/09/2021 Noted Allergy Reaction CIPROFLOXACIN 08/11/2005 12 - Shortness of Breath 10 - Anaphylaxis FISH CONTAINING PRODUCTS 02/10/2016 4 - Hives RED DYE 02/10/2016 4 - Hives IODINATED CONTRAST MEDIA 02/28/2019 2 - Rash METFORMIN 11/20/2016 6 - Diarrhea 8 - GI Upset 11 - Vomiting PENICILLINS 07/15/2005 2 - Rash SHELLFISH DERIVED 02/28/2019 6 - Diarrhea 11 - Vomiting SULFA (SULFONAMIDE ANTIBIOTICS) 07/15/2005 2 - Rash MOLD 09/07/2021 2 - Rash PALIPERIDONE 11/20/2016 2 - Rash Date Reviewed: 09/07/2021 Reviewed by: Bertha Stringer RN - Fully Assessed Reason for Visit: Patient Update [1234] Prescriptions as of 09/09/2021 - nitrofurantoin monohydrate and macrocrystal (MACROBID) 100 mg capsule Take 1 capsule by mouth twice daily with meals for 10 doses. - polyethylene glycol 3350 (MIRALAX, GLYCOLAX) 17 gram packet Take 1 Packet by mouth once daily. Dissolve dose in 4 - 8 ounces of liquid and take as directed. - acetaminophen (TYLENOL) 325 mg tablet Take 2 tablets by mouth every 6 hours for 14 days. - ibuprofen (MOTRIN) 600 mg tablet Take 1 tablet by mouth every 6 hours for 14 days. - traMADol (ULTRAM) 50 mg tablet Take 1 tablet by mouth every 6 hours as needed for pain. - mag hydrox/aluminum hyd/simeth (ANTACID SUSPENSION ORAL) Take 30 mL by mouth. Every 4 hrs as needed - Miconazole powd twice daily. - atorvastatin (LIPITOR) 40 mg tablet Take 40 mg by mouth daily at bedtime. - dextrose (GLUCOSE GEL ORAL) Take by mouth. - insulin lispro (HUMALOG) 100 unit/mL injection Inject subcutaneously three times daily before meals. - insulin glargine (LANTUS SOLOSTAR U-100 INSULIN) 100 unit/mL (3 mL) Inject 65 Units subcutaneously daily at bedtime. - lisinopril (ZESTRIL, PRINIVIL) 5 mg tablet [...] tablets by mouth daily at bedtime. - clonazePAM (KLONOPIN) 0.5 mg tablet Take 1 tablet by mouth three times daily as needed. - lamoTRIgine (LAMICTAL) 100 mg tablet Take 1 tablet by mouth once daily. Problem List As Of Date 09/09/2021 Noted Resolved TOBACCO USE DISORDER [F17.200] 07/15/2005 SYSTEMIC LUPUS ERYTHEMATOSUS [M32.9] 07/15/2005 MYALGIA AND MYOSITIS NOS [OVR6574] 07/15/2005 Elevated transaminase level [R74.01] 09/04/2014 Elevated blood sugar [R73.9] 09/04/2014 Mood disorder (HCC) [F39] 09/04/2014 Hard to intubate [T88.4XXA] 09/07/2021 Encounter for postoperative care [Z48.89] 09/07/2021 Endometrial cancer (HCC) [C54.1] 09/08/2021 Encounter Status:Closed by SUMMER TURCIOS on 09/09/21 [facility] CASE MANAGEMon 09-08-2021 CASE MANAGEM HNO ID: [id number] Author: Rosmery Mclaughlin RN Service: ? Author Type: Registered Nurse Type: Care Mgt Progress Note Filed: 09/08/2021 12:30 PM Note Text: CARE MANAGEMENT DISCHARGE NOTE SERVICE DATE: 09/08/2021 SERVICE TIME: 12:28 PM LOS: 1 day Admission Date: 09/07/2021 DISCHARGE ARRANGEMENT (list agency and phone number) Discharge Arrangement: Assisted Living Facility Provider Name: [facility] CAREGIVER ASSESSMENT: Caregiver is ready, willing and able to meet the patient's needs as recommended by the inter-professional team:: Yes Does the patient have an acute stroke diagnosis, or has the patient had a stroke during this admission?: No Patient's transition needs and plan for meeting these needs: return to [place] HANDOFF COMMUNICATION: Handoff to: Other Caregiver Other Caregiver Name/Phone: [facility] is aware of DC and case picker time. RN to call report. TRANSPORTATION ARRANGEMENTS: Transportation Arrangements: ([facility]) ADDITIONAL CONTACT RESOURCES: n/a DC orders completed. Patient is discharging back to [facility] [place]. The facility has arranged for [facility] transport to pick her up at 1pm. RN is aware. Met with patient at bedside to notify of DC and transport time. SIGNATURE: Rosmery Mclaughlin RN PATIENT NAME: Vida Nina DATE: September 08, 2021 TIME: 12:28 PM PAGER/CONTACT #: [phone] [facility] CASE MGT INIT Bette 2021 CASE MGT INIT NICOLE HNO ID: [id number] Author: Rosmery Mclaughlin RN Service: ? Author Type: Registered Nurse Type: Care Mgt Initial Assessment Filed: 09/08/2021 10:24 AM Note Text: CARE MANAGEMENT: ASSESSMENT AND DISCHARGE PLAN SERVICE DATE: September 08, 2021 SERVICE TIME: 10:22 AM PRIMARY CARE PHYSICIAN: No primary care provider on file. 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 Last discharge within 30 days: No Advance Directive: Health Literacy Baseline Mental Status Prior to this Illness what was the patient's Baseline Mental Status?: Alert AND Oriented Prior to this illness, has anyone described the patient having any of the following behaviors?: Not Applicable Relationship of the informant to the patient:: Self Functional Status: Needs Assistance Does Patient Currently Receive Any Community Services or Home Care?: None Equipment Prior to Admission: None Has the Patient Been in a [facility] Facility in the Past 30 days?: No SOCIAL: Living Arrangements: Assisted Living Lives With: N/A Patient from Facility Facility Information: [facility] Financial Resources: Disabled Primary Contact: Extended Emergency Contact Information Primary Emergency Contact: ankita nina Mobile Relation: Ex Spouse Secondary Emergency Contact: todd nina Relation: Son Supportive Patient Contact:: Yes Caregiver AssessmentCaregiver is ready, willing and able to meet the patient's needs as recommended by the inter-professional team:: Yes Does the patient have an acute stroke diagnosis, or has the patient had a stroke during this admission?: No Patient's transition needs and plan for meeting these needs: return to [place] Patient's perception of need for this admission: surgery Are you interested in bedside delivery of your medications? No Is Patient Psychosocially Complex?: No ASSESSMENT AND PLAN: Medical Needs: Medical Needs: Two or more chronic diseases Psychosocial Needs: Psychosocial Needs: None FREEDOM OF CHOICE EXPLAINED: [place] of Choice Given: No Reason Not Given: Patient refused (patient prefers to return to [facility]) POTENTIAL TRANSITION PLANS Home Chart reviewed and met with patient. She is from [facility]. 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 Plan is to return to [place]. Spoke with Zari at [facility]. They will send [facility] transport to case picker patient at 1pm. Will updated patient and RN. SIGNATURE: Rosmery Mclaughlin RN PATIENT NAME: Vida Nina DATE: September 08, 2021 TIME: 10:22 AM PAGER/CONTACT #: [phone] [facility] 09-08-2021 [facility] HNO ID: [id number] Author: Sam Naidu DO Service: Gynecology Oncology Author Type: Resident Type: Discharge Summary Filed: 09/08/2021 7:34 AM Note Text: ----- Attestation signed by Jennifer Cuevas MD at 09/09/2021 3:45 PM I evaluated the patient and personally participated in the holder components. I agree with the resident's findings and plan as documented and have discussed the case and management of the patient's care with the resident. Signature: Jennifer Cuevas MD Service Date: 09/09/2021 Service Time: 3:45 PM ----- DISCHARGE NOTE (Patient Admitted Less than 48 Hours) SERVICE DATE: 09/08/2021 SERVICE TIME: 7:27 AM ADMISSION DATE: 09/07/2021 DISCHARGE DISPOSITION: Home with Home Health DIET: Diabetic ACTIVITY AFTER DISCHARGE: Lifting is restricted to 15 lbs for 6 weeks May shower, no tub baths for swimming for 6 weeks No walking restrictions Pelvic rest x6 weeks FOLLOW UP CARE REQUIRED: Postoperative visit in [address] Cuevas Future Appointments Date Time Provider Department Center 09/22/2021 2:30 PM [id number] CUEVAS POB DISCHARGE MEDICATIONS Current Discharge Medication List START taking these medications nitrofurantoin monohydrate and macrocrystal (MACROBID) 100 mg Take 100 mg by mouth twice daily with meals. Qty: 10 capsule Refills: 0 polyethylene glycol 3350 (MIRALAX, GLYCOLAX) 17 g Take 17 g by mouth once daily. Dissolve dose in 4 - 8 ounces of liquid and take as directed. Qty: 30 Packet Refills: 0 ibuprofen (MOTRIN) 600 mg Take 600 mg by mouth every 6 hours. Qty: 56 tablet Refills: 0 traMADol (ULTRAM) 50 mg Take 50 mg by mouth every 6 hours as needed for pain. Qty: 15 tablet Refills: 0 Associated Diagnoses:Status post hysterectomy CONTINUE these medications which have CHANGED acetaminophen (TYLENOL) 650 mg Take 650 mg by mouth every 6 hours. Qty: 112 tablet Refills: 0 CONTINUE these medications which have NOT CHANGED atorvastatin (LIPITOR) 40 mg Take 40 mg by mouth daily at bedtime. insulin lispro (HUMALOG) 100 unit/mL injection Inject subcutaneously three times daily before meals. LANTUS SOLOSTAR U-100 INSULIN 65 Units Inject 65 Units subcutaneously daily at bedtime. lisinopril (ZESTRIL, PRINIVIL) 5 mg Take 5 mg by mouth once daily. QUEtiapine XR (SEROquel XR) 600 mg Take 600 mg by mouth daily at bedtime. Qty: 60 tablet Refills: 0 clonazePAM (KlonoPIN) 0.5 mg Take 0.5 mg by mouth three times daily as needed. lamoTRIgine (LaMICtal) 100 mg Take 100 mg by mouth once daily. Refills: 0 mag hydrox/aluminum hyd/simeth (ANTACID SUSPENSION ORAL) 30 mL Take 30 mL by mouth. Every 4 hrs as needed Miconazole powd twice daily. dextrose (GLUCOSE GEL ORAL) Take by mouth. triamcinolone-niacinamide 0.1-4 % cream Apply to affected area. dulaglutide (TRULICITY) 1.5 mg Inject 1.5 mg subcutaneously one time a week. cholecalciferol (Vitamin D3) (VITAMIN D3) 50,000 Units Take 50,000 Units by mouth one time a week. Qty: 6 capsule Refills: 1 Associated Diagnoses:Vitamin D deficiency STOP taking these medications guaiFENesin (ROBITUSSIN) 200 mg Comments: Reason for Stopping: FINAL DIAGNOSIS: Active Hospital Problems as of 09/08/2021 Noted - Resolved POA Hospital Encounter for postoperative care 09/07/2021 - Present Yes Endometrial cancer (HCC) 09/08/2021 - Present Unknown Hard to intubate 09/07/2021 - Present Unknown Plan of care discussed with Provider, RN, Patient SIGNATURE: Sam Naidu DO PATIENT NAME: Vida Nina DATE: September 08, 2021 TIME: 7:27 AM PAGER: [phone] Normal [facility] ANES PRE-OPon 09-07-2021 ANES PRE-OP HNO ID: [id number] Author: Darrion Payne MD Service: Anesthesiology Author Type: Physician Type: Anesthesia Preprocedure Evaluation Filed: 09/07/2021 8:58 AM Note Text: ANESTHESIOLOGY DAY OF SURGERY NOTE : 1950 Procedure Information Anesthesia Start Date/Time: 09/07/21812 Procedures: EXAM UNDER ANESTHESIA PELVIC / VAGINAL (N/A Pelvis) LAPAROSCOPIC HYSTERECTOMY TOTAL FOR UTERUS 250 G OR LESS W/REMOVAL TUBE(S) AND/OR OVARY(S) (N/A Abdomen) LAPAROSCOPY SURGICAL W/RETROPERITONEAL LYMPH NODE SAMPLING SINGLE OR MULTIPLE (N/A Abdomen) LAPAROTOMY PELVIC (N/A Pelvis) Location: [facility] Surgeons: Jennifer Cuevas MD Estimated body mass index is 47.26 kg/m? as calculated from the following: Height as of 09/01/21: 165.1 cm (5' 5). Weight as of 09/01/21: 128.8 kg (284 lb). Most recent hematocrit and potassium results: Hematocrit 41.0 09/01/2021 Potassium 4.4 03/01/2016 Relevant Problems No relevant active problems I - PHYSICAL EVALUATION AIRWAY Patient intubated: No. Tracheostomy tube not present Mallampati: II. TM distance: >3 FB. Neck ROM: full ROM without neurological symptoms. Mouth opening: adequate. Short neck: yes. Thick neck: yes DENTAL Dentures, upper: complete. Dentures, lower: complete. II - ANESTHESIA PLAN ASA Score: 3 Anesthetic Plan: general Airway type: ETT The patient is not a current smoker. NPO Status: adequate Monitoring plan: standard ASA. Postoperative analgesic plan: multimodal analgesia. Informed Consent Anesthetic risks, benefits, alternatives, personnel and consent discussed: yes. Patient / Responsible Alliance Party agrees to proceed: yes Patient / Surrogate agrees to blood products: Yes Significant changes in the patient condition since the History and Physical, not otherwise documented in primary service progress note: no. Potential Anesthesia issues that may suggest increased risk of complications or contraindication to planned procedure: none. Vitals Value Taken Time BP Pulse 102 09/07/21 0658 Resp 20 09/07/21 0658 Temp 36.2 ?C (97.2 ?F) 09/07/21 0658 SpO2 97 % 09/07/21 0658 Facility-Administered Medications as of 09/07/2021 Medication Dose Route Frequency - lidocaine 10 mg/mL (1 %) 1-2 mg injection (XYLOCAINE) 0.1-0.2 mL INTRADERMAL PRN - [COMPLETED] heparin 5,000 Units injection 5,000 Units SUBCUTANEOUS Pre-Op Once - [COMPLETED] gabapentin 600 mg cap(s) (NEURONTIN) 600 mg ORAL Pre-Op Once - ceFAZolin 3 g in D5W 100 mL (ANCEF) 3 g INTRAVENOUS Pre-Op Once - lactated ringers iv infusion 5-30 mL/hr INTRAVENOUS CONTINUOUS Outpatient Medications as of 09/07/2021 Medication Sig - atorvastatin (LIPITOR) 40 mg tablet Take 40 mg by mouth daily at bedtime. - insulin lispro (HUMALOG) 100 unit/mL injection Inject subcutaneously three times daily before meals. - insulin glargine (LANTUS SOLOSTAR U-100 INSULIN) 100 unit/mL (3 mL) Inject 65 Units subcutaneously daily at bedtime. - lisinopril (ZESTRIL, PRINIVIL) 5 mg tablet Take 5 mg by mouth once daily. - QUEtiapine XR (SEROQUEL XR) 300 mg 24 hr tablet Take 2 tablets by mouth daily at bedtime. - clonazePAM (KLONOPIN) 0.5 mg tablet Take 1 tablet by mouth three times daily as needed. - lamoTRIgine (LAMICTAL) 100 mg tablet Take 1 tablet by mouth once daily. - mag hydrox/aluminum hyd/simeth (ANTACID SUSPENSION ORAL) Take 30 mL by mouth. Every 4 hrs as needed (Patient not taking: Reported on 09/07/2021 ) - dextrose (GLUCOSE GEL ORAL) Take by mouth. - triamcinolone-niacinamide 0.1-4 % cream Apply to affected area. - dulaglutide (TRULICITY) 1.5 mg/0.5 mL pen injector Inject 1.5 mg subcutaneously one time a week. - cholecalciferol, Vitamin D3, (VITAMIN D3) 50,000 unit cap capsule Take 1 capsule by mouth once each week. I have interviewed and examined the patient. I have reviewed the medical record and/or the pre-anesthesia evaluation, pertinent labs, and test results. This contains updated information obtained within 48 hours of Surgery/Procedure. SIGNATURE: Darrion Payne MD PATIENT NAME: Vida Nina DATE: September 07, 2021 TIME: 8:57 AM CSN: [id number] [facility] BRIEF OP NOTon 09-07-2021 BRIEF OP NOT HNO ID: [id number] Author: Sam Naidu DO Service: Gynecology Oncology Author Type: Resident Type: Brief Op Note Filed: 09/07/2021 1:06 PM Note Text: BRIEF OPERATIVE / PROCEDURE NOTE LOG ID: [id number] SURGERY/PROCEDURE DATE: 09/07/2021 INCISION/PROCEDURE START TIME: 9:14 AM INCISION CLOSE/PROCEDURE END TIME: 12:36 PM SURGEON(S)/PROCEDURALIST( S) AND HAND SPRAY OPERATOR(S): Surgeon(s) and Role: * Jennifer Cuevas MD - Primary * Shanon Seymour DO - Resident - Assisting * Sam Naidu DO - Resident - Assisting No Additional Staff SURGERY/PROCEDURE(S): Exam under anesthesia, total laparoscopic hysterectomy, bilateral salpingo-oophorectomy ANESTHESIA: General FINDINGS: Bicornuate uterus Filmy, fibrinous adhesions throughout pelvis involving uterus, bilateral adnexa, bladder, and sigmoid colon Right ovary: Normal in appearance, adhesions Left ovary: Normal in appearance, adhesions Right fallopian tube: Adhesions Left fallopian tube: Adhesions Anterior cul-de-sac: Adhesions Posterior cul-de-sac: Adhesions No evidence of extrauterine disease UOP: 700 mLs clear yellow urine IVF: 1800 mLs crystalloid ESTIMATED BLOOD LOSS: 20 mls SPECIMENS: ID Type Source Tests Collected by Time 2 : Urine URINE, CATHETERIZED FLUID URINE CULTURE Jennifer Cuevas MD 09/07/2021 9:28 AM A : Tissue UTERUS, CERVIX, BILATERAL FALLOPIAN TUBES AND BILATERAL OVARIES SURGICAL PATHOLOGY Jennifer Cuevas MD 09/07/2021 11:04 AM COMPLICATIONS: None PRE-OP/PRE-PROCEDURE DIAGNOSIS: Endometrial carcinoma POST-OP/POST-PROCEDURE DIAGNOSIS: Same as Preop SIGNATURE: Sam Naidu DO PATIENT NAME: Vida Nina DATE: September 07, 2021 TIME: 1:01 PM Normal [facility] Bacteria Ur Culton Bacteria identified Cx Nom (U) ORGANISM ID: 1 >=100,000 CFU/ml Proteus mirabilis ORGANISM ID: 1 (PROTEUS MIRABILIS) ANTIBIOTIC INTERPRETATION TRANG STATUS REFERENCE RANGE Ampicillin I 16 F Susceptible <=8 , Intermediate >8 , Resistant >16 Ampicillin/Sulbact S 4 F Aztreonam S <=2 F Susceptible <=4 , Intermediate >4 , Resistant >=16 Cefazolin S 8 F Susceptible 0-16 , Intermediate <0 or >16 , Resistant >16 Cefepime S <=1 F Susceptible <=2 , Susceptible-Dose Dependent >2 , Resistant >=16 Ceftriaxone S <=1 F Susceptible <=1 , Intermediate >1 , Resistant >=4 Ciprofloxacin R >2 F Susceptible <=0.25 , Intermediate >.25 , Resistant >.5 Ertapenem S <=0.25 F Susceptible <=0.5 , Intermediate >.5 , Resistant >1 Gentamicin S <=2 F Susceptible <=4 , Intermediate >4 , Resistant >8 Nitrofurantoin R >64 F Susceptible <=32 , Intermediate >32 , Resistant >64 Piperacillin/Tazobac S <=2 F Trimeth sulfameth R >2 F Abnormal [facility] Comment on above: Performed By: #### 6 30-4 ####[facility] [id number] [place] [address] [place] Basic metabolic 2000 panelon 09-07-2021 Anion gap [Moles/Vol] 13 mmol/L Normal 9-18 [facility] Comment on above: Order Comment: Speci men Type: BLOOD SPECIMEN Ordering Facility: [facility] Address: [address] [place] [address] Performed By: #### 2 4321-2 #### [facility] CLIA [id number] [address] [place] [address] [place] Calcium [Mass/Vol] 9.2 mg/dL Normal 8.5-10.2 [facility] Comment on above: Order Comment: Speci men Type: BLOOD SPECIMEN Ordering Facility: [facility] Address: [address] [place] [address] Performed By: #### 2 4321-2 #### [facility] CLIA [id number] [address] [place] [address] [place] Chloride [Moles/Vol] 97 mmol/L Normal 97-105 [facility] Comment on above: Order Comment: Speci men Type: BLOOD SPECIMEN Ordering Facility: [facility] Address: [address] [place] [address] Performed By: #### 2 4321-2 #### [facility] CLIA [id number] [address] [place] CO2 [Moles/Vol] 22 mmol/L Normal 22-30 [facility] Comment on above: Order Comment: Speci men Type: BLOOD SPECIMEN Ordering Facility: [facility] Address: [address] [place] [address] Performed By: #### 2 4321-2 #### [facility] CLIA [id number] [address] [place] Creatinine [Mass/Vol] 0.70 mg/dL Normal 0.58-0.96 [facility] Comment on above: Order Comment: Speci men Type: BLOOD SPECIMEN Ordering Facility: [facility] Address: [address] [place] [address] Performed By: #### 2 4321-2 #### [facility] CLIA [id number] [address] ESTIMATED GLOMERULAR FILTRATION RATE 94 mL/min/1.73m??? Normal >=60 [facility] Comment on above: Order Comment: Speci men Type: BLOOD SPECIMEN Ordering Facility: [facility] Address: [address] [place] [address] Result Comment: Laura mated Glomerular Filtration Rate (eGFR) is calculated using the 2020 CKD-EPI creatinine equation. This equation utilizes serum creatinine, sex, and age as parameters. The creatinine assay has traceable calibration to isotope dilution-mass spectrometry. Refer to KDIGO guidelines for clinical interpretation. In patients with unstable renal function, e.g. those with acute kidney injury, the eGFR may not accurately reflect actual GFR. Performed By: #### 2 4321-2 #### [facility] CLIA [id number] [address] [place] Glucose [Mass/Vol] 303 mg/dL High 74-99 [facility] Comment on above: Order Comment: Bobbi alford Type: BLOOD SPECIMEN Ordering Facility: [facility] Address: [address] [place] [address] Result Comment: The [place] Diabetes Association (ADA) provides guidance for cutoff values for fasting glucose and random glucose. The ADA defines fasting as no caloric intake for at least 8 hours. Fasting plasma glucose results between 100 to 125 mg/dL indicate increased risk for diabetes (prediabetes). Fasting plasma glucose results greater than or equal to 126 mg/dL meet the criteria for diagnosis of diabetes. In the absence of unequivocal hyperglycemia, results should be confirmed by repeat testing. In a patient with classic symptoms of hyperglycemia or hyperglycemic crisis, random plasma glucose results greater than or equal to 200 mg/dL meet the criteria for diagnosis of diabetes. Reference: Standards of Medical Care in Diabetes 2016, [place] [employer] Association. Diabetes Care. 2016.39(Suppl 1). Performed By: #### 2 4321-2 #### [facility] CLIA [id number] [address] [place] [address] [place] Potassium [Moles/Vol] 4.9 mmol/L Normal 3.7-5.1 [facility] Comment on above: Order Comment: Bobbi alford Type: BLOOD SPECIMEN Ordering Facility[facility] Address: [address] [place] [address] Performed By: #### 2 4321-2 #### [facility] CLIA [id number] [address] [place] [address] [place] Sodium [Moles/Vol] 132 mmol/L Low 136-144 [facility] Comment on above: Order Comment: Bobbi alford Type: BLOOD SPECIMEN Ordering Facility: [facility] Address: [address] [address] Performed By: #### 2 4321-2 #### [facility] CLIA [id number] [address] [place] [address] [place] Urea nitrogen [Mass/Vol] 13 mg/dL Normal 7-21 [facility] Comment on above: Order Comment: Bobbi alford Type: BLOOD SPECIMEN Ordering Facility: [facility] Address: [address] [address] Performed By: #### 2 4321-2 #### [facility] CLIA [id number] [address] CBC panel Auto (Bld)on 09-07 Erythrocyte distribution width (RBC) [Ratio] 14.2 % Normal 11.5-15.0 [facility] Comment on above: Order Comment: Speci men Type: BLOOD SPECIMEN Ordering Facility: [facility] Address: [address] [place] [address] Performed By: #### 5 8410-2 #### [facility] CLIA [id number] [address] Hematocrit (Bld) [Volume fraction] 44.0 % Normal 36.0-46.0 [facility] Comment on above: Order Comment: Speci men Type: BLOOD SPECIMEN Ordering Facility[facility] Address: [address] [place] [address] Performed By: #### 5 8410-2 #### [facility] CLIA [id number] [address] Hemoglobin (Bld) [Mass/Vol] 14.2 g/dL Normal 11.5-15.5 [facility] Comment on above: Order Comment: Speci men Type: BLOOD SPECIMEN Ordering Facility[facility] Address: [address] [place] [address] Performed By: #### 5 8410-2 #### [facility] CLIA [id number] [address] MCH (RBC) [Entitic mass] 28.9 pg Normal 26.0-34.0 [facility] Comment on above: Order Comment: Speci men Type: BLOOD SPECIMEN Ordering [facility] Address: [address] [place] [address] Performed By: #### 5 8410-2 #### [facility] CLIA [id number] [address] MCHC (RBC) [Mass/Vol] 32.3 g/dL Normal 30.5-36.0 [facility] Comment on above: Order Comment: Speci men Type: BLOOD SPECIMEN Ordering Facility[facility] Address: [address] Performed By: #### 5 8410-2 #### [facility] CLIA [id number] [address] MCV (RBC) [Entitic vol] 89.6 fL Normal 80.0-100.0 [facility] Comment on above: Order Comment: Speci men Type: BLOOD SPECIMEN Ordering [facility] Address: [address] [place] [address] Performed By: #### 5 8410-2 #### [facility] CLIA [id number] [address] Nucleated RBC (Bld) [#/Vol] 10*3/uL Normal <0.01 [facility] Comment on above: Order Comment: Speci men Type: BLOOD SPECIMEN Order[facility] Facility[facility] Address: [address] [place], [place] [address] Performed By: #### 5 8410-2 #### [facility] CLIA [id number] [address] Platelet mean volume (Bld) [Entitic vol] 10.8 fL Normal 9.0-12.7 [facility] Comment on above: Order Comment: Speci men Type: BLOOD SPECIMEN Ordering [facility] Address: [address] Performed By: #### 5 8410-2 #### [facility] CLIA [id number] [address] Platelets (Bld) [#/Vol] 153 10*3/uL Normal 150-400 [facility] Comment on above: Order Comment: Speci men Type: BLOOD SPECIMEN Ordering [facility] Address: [address] Performed By: #### 5 8410-2 #### [facility] CLIA [id number] [address] RBC (Bld) [#/Vol] 4.91 10*6/uL Normal 3.90-5.20 [facility] Comment on above: Order Comment: Speci men Type: BLOOD SPECIMEN Ordering [facility] Address: [address] [place] [address] Performed By: #### 5 8410-2 #### [facility] CLIA [id number] [address] WBC (Bld) [#/Vol] 8.23 10*3/uL Normal 3.70-11.00 [facility] Comment on above: Order Comment: Speci men Type: BLOOD SPECIMEN Ordering [facility] Address: [address] [place] [address] Performed By: #### 5 8410-2 #### [facility] CLIA [id number] [address] CONSULT PROGon 09-07-2021 CONSULT PROG HNO ID: [id number] Author: Niki Carbtree RPh Service: Pharmacy Author Type: Pharmacist Type: Consult Progress Note Filed: 09/07/2021 4:32 PM Note Text: PHARMACY PROGRESS NOTE Patient Name: Vida Nina Admission Date: 09/07/2021 Date of Consult: 09/07/2021 Time of Consult: 4:32 PM In accordance with the inpatient pharmacy consult agreement the following medication changes have been made: Ordered CBC+BMP x 1 in order to assess appropriate dosing for enoxaparin. Pharmacy will continue to monitor patient for continued eligibility of these medication changes. Please call with any questions or concerns. SIGNATURE: Niki Crabtree RPh DATE/TIME: 09/07/2021 4:32 PM Normal [facility] NURSING PROGon 09-07-2021 NURSING PROG HNO ID: [id number] Author: Lydia Oliver RN Service: Nursing Author Type: Registered Nurse Type: Nursing Progress Note Filed: 09/07/2021 3:19 PM Note Text: Spoke with Bernadine at [facility] to let her know patient was spending the night, as she said there is no nursing staff after 2300 Normal [facility] NURSING PROG HNO ID: [id number] Author: Lydia Oliver, RN Service: Nursing Author Type: Registered Nurse Type: Nursing Progress Note Filed: 09/07/2021 3:09 PM Note Text: Patient states that there is no one to stay/check on her at her assisted living facility. Dr. Torres at bedside, aware, order received to keep patient in the hospital overnight. Dr. Naidu paged for admitting orders. Dr. Torres aware of blood sugar, no new orders, as patient will continue home meds on the floor. Normal [facility] SARS-CoV-2 RNA Resp Ql SALLY+p robeon 09-07-2021 SARS-CoV-2 (COVID-19) RNA SALLY+probe Ql (Resp) COVID 19 RESULT: SARS-CoV-2 (Agent of COVID-19) Not Detected by RT-PCR or equivalent method. This test has been authorized by FDA under an Emergency Use Authorization (EUA). Normal [facility] Comment on above: Performed By: #### 9 4500-6 ####[facility] [id number] [address] SURGICAL PATHOLOGYon 022 CASE REPORT Normal [facility] Comment on above: Order Comment: Speci men Type: TISSUE SPECIMEN [facility] Facility[facility] Address: [address] [place], [place] [address] Result Comment: Surg ical Pathology Report Case: [id number] Authorizing Provider: Jennifer Cuevas MD Collected: 09/07/2021 11:04 AM Ordering Location[facility] Received: 09/07/2021 11:12 AM Pathologist: Oseas May MD Intraop: Derick Alvarez MD Specimen: UTERUS, CERVIX, BILATERAL FALLOPIAN TUBES AND BILATERAL OVARIES Performed By: #### S #### [facility] CLIA [id number] [address] DIAGNOSIS COMMENT Normal [facility] Comment on above: Order Comment: Speci men Type: TISSUE SPECIMEN Ordering Facility[facility] Address: [address] [place] [id number] Result Comment: Immu nohistochemical staining performed on block A10 shows positive [...] A11 and A16 were reviewed at the [facility] gynecologic pathology consensus conference via telepathology on 09/09/[address] Lupe Younger and Andra Franco agree with the diagnosis of acute salpingitis. Laboratory Developed Test (LDT) Disclaimer: Performance characteristics of immunohistochemical, immunofluorescent and chromogenic in-situ hybridization tests have been determined by the performing laboratory within [facility]???s [facility] Pathology and Laboratory Medicine [place] ([facility], [facility], [facility] or [facility]) in a manner consistent with CLIA requirements. One or more of these tests have not been cleared or approved by the FDA. [facility] is regulated under CLIA as qualified to perform high-complexity testing. These tests are used for clinical purposes. They should not be regarded as investigational or for research. Positive and negative controls stain appropriately. Performed By: #### S #### [facility] CLIA [id number] [address] [place] [address] OF [facility] FINAL DIAGNOSIS Normal [facility] Comment on above: Order Comment: Speci men Type: TISSUE SPECIMEN Ordering Facility[facility] Address: [address] [place] [address] Result Comment: A. U terus, cervix, bilateral fallopian tubes and bilateral ovaries, hysterectomy and bilateral salpingo-oophorectomy: Cervix: -Nabothian cysts. -Negative for cervical stromal involvement by carcinoma. Lower uterine segment: -Superficial (non-myoinvasive) involvement by endometrial endometrioid adenocarcinoma. Endometrium: -Endometrial adenocarcinoma, endometrioid type, FIGO grade 2. Myometrium: -Invasion by endometrial endometrioid adenocarcinoma into the outer half of myometrium (60% myoinvasion). -Extensive microcystic, elongated and fragmented (MELF) pattern of invasion present. -Extensive lymphovascular invasion is present. -Please see comment and synoptic report. Serosa: -Fibrous adhesions. Left Fallopian tube: -Acute salpingitis. -Negative for carcinoma. -See comment. Right fallopian tube: -Endometrial adenocarcinoma present within lymphatic vessels. -Negative for stromal involvement by tumor. -See comment. Right and left ovaries: -Unremarkable ovaries. Performed By: #### S #### [facility] CLIA [id number] [address] FINAL PERFORMING LAB Normal [facility] Comment on above: Order Comment: Speci men Type: TISSUE SPECIMEN Order[facility] Facility[facility] Address: [address] [place] [address] Result Comment: Diag nostic interpretation performed at [facility], [address] [place] [address] CLIA# [id number] Tool And Die Inspector: Alok Jonas M.D. Performed By: #### S #### [facility] CLIA [id number] [address] GROSS DESCRIPTION Normal [facility] Comment on above: Order Comment: Speci men Type: TISSUE SPECIMEN Ordering Facility[facility] Address: [address] [place] [address] Result Comment: A. U TERUS, CERVIX, BILATERAL FALLOPIAN TUBES AND BILATERAL OVARIES. Received in formalin labeled uterus cervix bilateral fallopian tubes and bilateral ovaries is a uterus with attached cervix and attached bilateral fallopian tubes and ovaries weighing overall 129 g. The uterus and attached cervix measures 9.5 x 6.5 x 3.5 cm. The serosal surface is purple???pink and dull with possible hemorrhagic powder henderson. The ectocervix is pink???white smooth and glistening. The cervical os is [place] in contour. Upon opening, the endocervical canal measures 3.4 cm in length and is unremarkable. Upon sectioning the cervix, a 0.6 cm smooth lined clear fluid-filled cystic structure is located at the 6 o'clock position. The endometrial cavity measures 4 cm in length and 4 cm in width. The entire endometrium consists of a pink???lamar fungating and friable mass (4 x 4 [...] The outer surface of the tube is purple???lamar smooth and glistening with no paratubal cysts identified. Sectioning reveals unremarkable lumen. The left ovary measures 2.7 x 1.8 x 0.8 cm and weighs 3 g. The outer surface is lamar???pink and wrinkled. Sectioning reveals fibrous ovarian parenchyma with no lesions identified.The right fallopian tube with attached fimbriated end measures 7 cm in length and 0.8 cm in diameter. The fimbriated end is normal and villous no paratubal cysts are identified. Sectioning reveals unremarkable lumen. The right ovary weighs 4 g and measures 3 x 2 x 1.2 cm. The outer surface is pink???lamar and wrinkled. Sectioning reveals fibrous ovarian parenchyma with no lesions identified. Dehydrator Operator sections are submitted as follows: A1-anterior cervix A2-posterior cervix demonstrating cystic structure A3-posterior lower uterine segment A4???A6-anterior uterine wall demonstrating mass from fundus to lower uterine segment, full-thickness A7???A9-posterior uterine wall demonstrating mass from fundus to lower uterine segment, full-thickness (A8???A9 demonstrates hemorrhagic cavitation) A 10???A 11-left fallopian tube fimbriated end bisected A 12-left fallopian tube into mid cross-sections A 13-left ovary A 14???A 15-right fallopian tube fimbriated end bisected A 16-right Fallopian tube mid cross-section A 17-right ovary Gross examination performed at [facility], [address] [place] [address] CLIA#[id number] OLS September 08, 2021 10:33 AM Performed By: #### S #### [facility] CLIA [id number] [address] [place] INTRAOPERATIVE DIAGNOSIS Normal [facility] Comment on above: Order Comment: Speci men Type: TISSUE SPECIMEN Ordering Facility: [facility] Address: [address] [place], [place] [id number] Result Comment: A. U TERUS, CERVIX, BILATERAL FALLOPIAN TUBES AND BILATERAL OVARIES. Gross diagnosis: Uterus, cervix, bilateral fallopian tubes, bilateral ovaries- Endometrial tumor grossly invading greater than 50% into the uterine wall (AC) Performed By: #### S #### [facility] CLIA [id number] [address] [place] SYNOPTIC REPORT ENDOMETRIUM Normal [facility] Comment on above: Order Comment: Speci men Type: TISSUE SPECIMEN Ordering Facility: [facility] Address: [address] [place] [address] Result Comment: ENDO METRIUM, HYSTERECTOMY - All Specimens 8th Edition - [...] 1, 8th Ed.) it is the managing physician???s responsibility to establish the final pathologic stage based upon all pertinent information, including but potentially not limited to this pathology report. pT Category: pT1b pN Category: pN not assigned (no nodes submitted or found) FIGO STAGE FIGO Stage: IB Performed By: #### S #### [facility] CLIA [id number] [address] CBC panel Auto (Bld)on 09-01 Erythrocyte distribution width (RBC) [Ratio] 14.5 % Normal 11.5-15.0 [facility] Comment on above: Order Comment: Speci men Type: BLOOD SPECIMEN Ordering Facility: [facility] Address: [address] [place] [address] Performed By: #### 5 8410-2 #### [facility] CLIA [id number] [address] [place] [address] Hematocrit (Bld) [Volume fraction] 41.0 % Normal 36.0-46.0 [facility] Comment on above: Order Comment: Speci men Type: BLOOD SPECIMEN Ordering Facility: [facility] Address: [address] [place] [address] Performed By: #### 5 8410-2 #### [facility] CLIA [id number] [address] Hemoglobin (Bld) [Mass/Vol] 13.3 g/dL Normal 11.5-15.5 [facility] Comment on above: Order Comment: Speci men Type: BLOOD SPECIMEN Ordering Facility: [facility] Address: [address] [place] [address] Performed By: #### 5 8410-2 #### [facility] CLIA [id number] [address] MCH (RBC) [Entitic mass] 28.8 pg Normal 26.0-34.0 [facility] Comment on above: Order Comment: Speci men Type: BLOOD SPECIMEN Ordering Facility: [facility] Address: [address] [place] [address] Performed By: #### 5 8410-2 #### [facility] CLIA [id number] [address] MCHC (RBC) [Mass/Vol] 32.4 g/dL Normal 30.5-36.0 [facility] Comment on above: Order Comment: Speci men Type: BLOOD SPECIMEN Ordering Facility: [facility] Address: [address] [place] [address] Performed By: #### 5 8410-2 #### [facility] CLIA [id number] [address] MCV (RBC) [Entitic vol] 88.7 fL Normal 80.0-100.0 [facility] Comment on above: Order Comment: Speci men Type: BLOOD SPECIMEN Ordering Facility: [facility] Address: [address] [place] [address] Performed By: #### 5 8410-2 #### [facility] CLIA [id number] [address] Nucleated RBC (Bld) [#/Vol] 10*3/uL Normal <0.01 [facility] Comment on above: Order Comment: Speci men Type: BLOOD SPECIMEN Ordering Facility: [facility] Address: [address] [place] [address] Performed By: #### 5 8410-2 #### [facility] CLIA [id number] [address] Platelet mean volume (Bld) [Entitic vol] 10.5 fL Normal 9.0-12.7 [facility] Comment on above: Order Comment: Speci men Type: BLOOD SPECIMEN Ordering Facility: [facility] Address: [address] [place] [address] Performed By: #### 5 8410-2 #### [facility] CLIA [id number] [address] Platelets (Bld) [#/Vol] 167 10*3/uL Normal 150-400 [facility] Comment on above: Order Comment: Speci men Type: BLOOD SPECIMEN Ordering Facility: [facility] Address: [address] [place] [address] Performed By: #### 5 8410-2 #### [facility] CLIA [id number] [address] [place] RBC (Bld) [#/Vol] 4.62 10*6/uL Normal 3.90-5.20 [facility] Comment on above: Order Comment: Speci men Type: BLOOD SPECIMEN Ordering Facility: [facility] Address: [address] [place] [address] Performed By: #### 5 8410-2 #### [facility] CLIA [id number] [address] [place] [address] WBC (Bld) [#/Vol] 6.29 10*3/uL Normal 3.70-11.00 [facility] Comment on above: Order Comment: Speci men Type: BLOOD SPECIMEN Ordering Facility: [facility] Address: [address] [place] [address] Performed By: #### 5 8410-2 #### [facility] CLIA [id number] [address] CONFIRM BLOOD TYPEon 022 ABO O Normal [facility] Comment on above: Order Comment: Speci men Type: BLOOD SPECIMEN Ordering Facility[facility] Address: [address] [place] [address] Performed By: #### C ONABO #### [facility] CLIA [id number] [address] Rh Nom (Bld) Positive Normal [facility] Comment on above: Order Comment: Speci men Type: BLOOD SPECIMEN Ordering Facility: [facility] Address: [address] [place] [address] Performed By: #### C ONABO #### [facility] CLIA [id number] [address] [place] [address] [place] HISTORY PHYSICALon 2 HISTORY PHYSICAL HNO ID: [id number] Author: Naila Barrietnos APRN.MICHELLE Service: ? Author Type: Nurse Practitioner Type: HANDP Filed: 09/01/2021 3:19 PM Note Text: HISTORY AND PHYSICAL EXAMINATION SERVICE DATE: 09/01/2021 SERVICE TIME: 3:07 PM PRIMARY CARE PHYSICIAN: No primary care provider on file. REASON FOR VISIT: Vida Nina is a 70 year old female who is scheduled for Procedure(s): EXAM UNDER ANESTHESIA PELVIC / VAGINAL (N/A) LAPAROSCOPIC HYSTERECTOMY TOTAL FOR UTERUS 250 G OR LESS W/REMOVAL TUBE(S) AND/OR OVARY(S) (N/A) LAPAROSCOPY SURGICAL W/RETROPERITONEAL LYMPH NODE SAMPLING SINGLE OR MULTIPLE (N/A) LAPAROTOMY PELVIC (N/A) at the request of Dr. Jennifer Cuevas for routine HANDP. My final recommendation will be communicated back [...] CHIEF COMPLAINT: Endometrial cancer (HCC) (C54.1) HPI: Vida Nina is a 70 year old female present [...] OR MULTIPLE,LAPAROTOMY PELVIC on 09/07/[address] Cuevas. Surgery will be at [facility] Scheduled as an TBA Have you been in contact with someone with known coronavirus/Covid 19? no Have you had surgery or pre testing at [facility] in the past 3 years? no [...] Negative for: AICD/PPM, chest pain, CHF, recent MD and open heart surgery. GI: Positive for: abdominal pain Negative for: nausea and vomiting. : No history of dysuria, frequency or incontinence, stones or chronic kidney disease. No difficulty urinating, nocturia > 1 time per night or hematuria. 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 [...] and itching. PAST MEDICAL HISTORY Diagnosis Date - Bipolar disorder with depression (HCC) - History of seizures - Hypertension - Living in assisted living - Major depressive disorder - Malignant neoplasm of endometrium (HCC) - Mixed hyperlipidemia - MYALGIA AND MYOSITIS [...] Alcohol use: No - Drug use: No Prior to Admission medications [...] mg by mouth daily at bedtime. Yes de (more content not included)... Normal [facility] TYPE AND SCREEN,30 DAYon ABO O Normal [facility] Comment on above: Order Comment: Speci men Type: BLOOD SPECIMEN Order[facility] Facility[facility] Address: [address] [place] [address] Performed By: #### T SCR30 #### [facility] CLIA [id number] [address] HISTORICAL AB SCR STATUS Negative [facility] Comment on above: Order Comment: Speci men Type: BLOOD SPECIMEN Ordering Facility[facility] Address: [address] [place] [address] Performed By: #### T SCR30 #### [facility] CLIA [id number] [address] Rh Nom (Bld) Positive [facility] Comment on above: Order Comment: Speci men Type: BLOOD SPECIMEN Ordering Facility[facility] Address: [address] [place] [address] Performed By: #### T SCR30 #### [facility] CLIA [id number] [address] CNOVSPon 08-21-2021 CNOVSP Visit (SP) Office (ROGELIO) ----- PAUL,VIDA A ([id number]) 1950 F Date Time Provider Department 08/21/21 1:30 PM JENNIFER CUEVAS During your visit today, we recorded the following information about you: Temperature Pulse Blood pressure Weight 97.8 degrees 113/minute 144/72 130 kg Height 1.651 m Jennifer Cuevas MD 08/26/2021 1:21 PM Signed Gynecologic Oncology [facility] Consult Date of service: 08/21/2021 PCP: Dr. Shayna Malhotra Psychiatrist: Dr. Brie Geller PROBLEM/CC: Vida Nina presents for a consult for endometrial cancer referred by Krunal Erazo MD HPI: Vida Nina is a 70 year old female who [...] many years since she has seen a director of guidance in public schools, maybe > 10 years. 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 Age at Menarche: ? Age at First : ? Age at Menopause: ? 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 Sexual Activity: Not Asked; [...] by mouth three times daily as needed. (more content not included)... Normal [facility] CNPElva 08-07-2021 SHORTY Telephone (ÁNGEL Sprague) ----- VIDA NINA ([id number]) 1950 F Date Time Provider Department 08/07/21 JENNIFER CUEVAS During your visit today, we recorded the following information about you: Jeffrey Ferris 08/07/2021 1:26 PM Signed Called gilberto the nurse at [facility] where the patient is living and she stated she would call back at a different time to reschedule the appointment due to transportation. Jeffrey Ferris 08/07/21 Allergies As of Date: 08/07/2021 Noted Allergy Reaction CIPRO (CIPROFLOXACIN) 08/11/2005 12 - Shortness of Breath FISH CONTAINING PRODUCTS 02/10/2016 4 - Hives PENICILLINS 07/15/2005 RED DYE 02/10/2016 4 - Hives SULFA (SULFONAMIDE ANTIBIOTICS) 07/15/2005 Date Reviewed: 07/29/2021 Reviewed by: Irene Rodriguez MA - Fully Assessed Reason for Visit: Missed Appointment [1304] Prescriptions as of 08/07/2021 - atorvastatin (LIPITOR) 40 mg tablet Take [...] mg subcutaneously one time a week. - furosemide (LASIX) 20 mg tablet Take 1 tablet by mouth twice daily. - cholecalciferol, Vitamin D3, (VITAMIN D3) 50,000 unit cap capsule Take 1 capsule by mouth once each week. - QUEtiapine XR (SEROQUEL XR) 300 mg 24 hr tablet Take 2 tablets by mouth daily at bedtime. - furosemide (LASIX) 20 mg tablet Take 0.5 tablets by mouth once daily. - cholecalciferol, Vitamin D3, (VITAMIN D3) 50,000 unit cap capsule Take 1 capsule by mouth once each week. (ONE CAPSULE) FOR VITAMIN D DEFICIENCY - cholecalciferol, Vitamin D3, (VITAMIN D3) 50,000 unit cap capsule Take 1 capsule by mouth twice a week. (ONE CAPSULE) FOR VITAMIN D DEFICIENCY - ergocalciferol, vitamin D2, (VITAMIN D) 50,000 unit capsule Take 1 capsule by mouth once each week. - clonazePAM (KLONOPIN) 0.5 mg tablet Take 1 tablet by mouth three times daily as needed. - lamoTRIgine (LAMICTAL) 100 mg tablet Take 1 tablet by mouth once daily. Problem List As Of Date 08/07/2021 Noted Resolved TOBACCO USE DISORDER [F17.200] 07/15/2005 SYSTEMIC LUPUS ERYTHEMATOSUS [M32.9] 07/15/2005 MYALGIA AND MYOSITIS NOS [EJL3606] 07/15/2005 Elevated transaminase level [R74.01] 09/04/2014 Elevated blood sugar [R73.9] 09/04/2014 Mood disorder (HCC) [F39] 09/04/2014 Encounter Status:Closed by JEFFREY FERRIS [facility]07[facility] (OBGYWM) ----- VIDA NINA ([id number]) 1950 F Date Time Provider Department 08/05/21 KRUNAL ERAZOGY During your visit today, we recorded the following information about you: Krunal Erazo MD 08/05/2021 8:30 AM Signed Called listed numbers under home phone, and the numbers are not working. Called number listed for patient's showcase trimmer regarding results, but it was stated that patient does not have a showcase trimmer currently. I was given the number [phone] to call, which is [facility] where patient resides. Called this number and left a VM asking them to call back regarding patient results. I had offered the patient a follow up visit this week to review results, but she did prefer a phone call. Pathology shows endometrioid adenocarcinoma. I will place a referral to pattern [facility] oncology. Recommend that she see Dr. Jennifer Cuevas in [place] as that would be the closest for her. Krunal Erazo MD 08/05/2021 10:06 AM Signed Discussed results with a nurse Gilberto over the phone and plan of care. She states patient saw an oncologist as well at [facility] and is scheduled for a CTAP. She will have the patient call our office back today for me to discuss results with her as well. Krunal Erazo MD 08/05/2021 10:19 AM Signed Discussed results with the patient and she understands the biopsy shows an endometrial cancer, and that I placed a referral to [facility] oncology for a consultation. Please assist in scheduling this patient. Andra Jesus RN 08/05/2021 11:33 AM Signed Scheduled patient with Dr. Cuevas this Tuesday, 08/07 at 1:00 PM. Spoke with the nurseGilberto. Patient's CT scan is scheduled for Tuesday. Phone number given to change appointment since transportation needs arranged. Notified Gilberto that he is in [place] on Tuesdays and every other Tuesday. 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 - furosemide (LASIX) 20 mg tablet Take 1 tablet by mouth twice daily. - cholecalciferol, Vitamin D3, (VITAMIN D3) 50,000 unit cap capsule Take 1 capsule by mouth once each week. - QUEtiapine XR (SEROQUEL XR) 300 mg 24 hr tablet Take 2 tablets by mouth daily at bedtime. - furosemide (LASIX) 20 mg tablet Take 0.5 tablets by mouth once daily. - cholecalciferol, Vitamin D3, (VITAMIN D3) 50,000 unit cap capsule Take 1 capsule by mouth once each week. (ONE CAPSULE) FOR VITAMIN D DEFICIENCY - cholecalciferol, Vitamin D3, (VITAMIN D3) 50,000 unit cap capsule Take 1 capsule by mouth twice a week. (ONE CAPSULE) FOR VITAMIN D DEFICIENCY - ergocalciferol, vitamin D2, (VITAMIN D) 50,000 unit capsule Take 1 capsule by mouth once each week. - clonazePAM (KLONOPIN) 0.5 mg tablet Take 1 tablet by mouth three times daily as needed. - lamoTRIgine (LAMICTAL) 100 mg tablet Take 1 tablet by mouth once daily. Problem List As Of Date 08/05/2021 Noted Resolved TOBACCO USE DISORDER [F17.200] 07/15/2005 SYSTEMIC LUPUS ERYTHEMATOSUS [M32.9] 07/15/2005 MYALGIA AND MYOSITIS NOS [[id number]] 07/15/2005 Elevated transaminase level [R74.01] 09/04/2014 Elevated blood sugar [R73.9] 09/04/2014 Mood disorder (HCC) [F39] 09/04/2014 Encounter Status:Closed by PAMELA MATUTE RN on 08/05/21 Normal [facility] No Panel Informationon 07-30 CA 125 Antigen 85.5 U/mL 0.0-38.1 [facility] Work Phone: Comment on above: [employer] El ectrochemiluminescence Immunoassay(ECLIA)Values obtained with different assay methods or kits cannotbe used interchangeably. Results cannot be interpreted asabsolute evidence of the presence or absence of malignantdisease.Performed at: [address] [id number] Director: Suhas Deal PhD, Phone: [phone] CNOVon 07-29-2021 CNOV Office Visit (OBGYWM ) ----- VIDA NINA ([id number]) 1950 F Date Time Provider Department 07/29/21 10:30 AM KRUNAL ERAZO During your visit today, we recorded the following information about you: Blood pressure Weight 120/80 132.6 kg Krunal Erazo MD 07/30/2021 10:15 AM Signed Vida Nina is a 70 year old female who [...] many years since she has seen a director of guidance in public schools, maybe > 10 years. 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 Normal [facility] SURGICAL PATHOLOGYon 022 SURGICAL PATHOLOGY ADDENDUM PRESENT Specimen originated from [facility] Specimen #: [id number] Submitting Physician: KRUNAL ERAZO DO FINAL DIAGNOSIS 1. Cervix at 3 o'clock, biopsy (A) [...] and focal squamous differentiation, FIGO grade 2. COMMENT Immunostains were used to assist with classifying the adenocarcinoma in the endometrial biopsy (part F). The tumor is diffusely and strongly positive for estrogen receptor and progesterone receptor and shows patchy positivity for p16. A p53 immunostain shows a wild type pattern of positivity. Mismatch repair proteins are retained. 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 A detached fragment of endometrioid adenocarcinoma is seen in the cervical biopsy from 9 o'clock. This tumor is also positive for estrogen receptor and focally positive for p16, though the sample is limited. A p16 immunostain was performed on the cervical biopsy from 12 o'clock (part D) and is negative. A primary cervical squamous dysplasia or neoplasm is not identified in any of these samples. Selected slides from this case were seen in consultation with Dr.Mark Urbano who agrees. Laboratory Developed Test (LDT) Disclaimer: Positive and negative controls stain appropriately. Performance characteristics of immunohistochemical, immunofluorescent and chromogenic in-situ hybridization tests have been determined by [facility]'s [facility] Medicine [place] ([facility]) in a manner consistent with CLIA requirements. One or more of these tests have not been cleared or approved by the FDA. [facility] is regulated under CLIA as qualified to perform high-complexity testing. These tests are used for clinical purposes. They should not be regarded as investigational or for research. Results: Mismatch repair proteins are expressed in carcinoma nuclei Mismatch repair (MMR) status: Proficient Immunohistochemical (IHC) staining patterns of each MMR protein: PMS2 expressed in carcinoma nuclei MLH1 expressed in carcinoma nuclei MSH6 expressed in carcinoma nuclei MSH2 expressed in carcinoma nuclei MMR-IHC was performed on tissue block F1 with appropriate controls. Immunohistochemistry testing is one of the standard tests completed on all uterine/endometrial carcinomas at the [facility]. IHC stains for MMR proteins were performed to assist in screening for HNPCC (Nova Syndrome). MMR proteins function as heterodimers with the association of MLHI with PMS2 and the association of MSH2 with MSH6. These binding partnerships stabilize MMR proteins. Immunohistochemical screening for the detection of MMR proteins is an effective screening option for Nova syndrome in approximately 95% of cases. Recent studies demonstrate that the anti-programmed 1 (PD-1) immune checkpoint inhibitor pembrolizumab's benefit is predicted by the tumor's mismatch repair status. Mismatch repair deficient tumors are more responsive to PD-1 blockade than mismatch repair proficient tumors. Pembrolizumab is FDA-approved for the treatment of adult and pediatric patients with unresectable or metastatic solid tumors that display MMR deficient by immunohistochemistry or microsatellite instability-high (MSI-H) by PCR assay. The FDA does not distinguish between MMR-IHC and PCR-based assays, as these are considered equivalent and complimentary tests. A two antibody screen effectively identifies mismatch repair deficient tumors because MMR proteins function as heterodimers with MLH1 associated with PMS2 and MSH2 associated with MSH6. These binding partnerships stabilize PMS2 and MSH6. As clinically indicated, and in the appropriate setting of genetic counseling with informed patient consent, further molecular genetic testing may be needed. For more information or questions, please call the [facility] at . Andra Webb (more content not included)... Normal [facility] CNPNon 07-27-2021 CNPN Telephone (OBGYWM) ----- VIDA NINA ([id number]) 1950 F [facility] Date Time Provider Department 07/27/21 KRUNAL ERAZO OBGYWM During your visit today, we recorded the following information about you: Andra Jesus RN 07/27/2021 8:14 AM Signed JONATHAN states that patient was seen at [facility] ER yesterday for vaginal bleeding and possible pelvic mass. Called [facility] ER and requested records and imaging report be faxed to our office. JONATHAN would like SW to review and possibly offer her an appointment to be seen. Please give report to SW once it's received from hospital. Andra Jesus RN 07/27/2021 8:23 AM Signed Report received. To ELVIN to review. Krunal Erazo MD 07/27/2021 9:03 AM Signed ER records reviewed. Hgb 13.8 and stable in ER. Pelvic ultrasound shows cervical mass and endometrial thickening. Of note, patient is minimally ambulatory and coming from [facility]. Since she is a new patient who is minimally ambulatory, and likely needs an EMB and cervical biopsies, would prefer to have 60 min appointment to get everything completed in one day as well as crisis counselor her. Can offer her the 2.20 and 2.30 slots today, but it might be better to see her Tuesday for 60 min. Thanks Elisabeth Green LPN 07/27/2021 9:56 AM Signed Patient scheduled Allergies As of Date: 07/27/2021 Noted Allergy Reaction CIPRO (CIPROFLOXACIN) 08/11/2005 12 - Shortness of Breath FISH CONTAINING PRODUCTS 02/10/2016 4 - Hives PENICILLINS 07/15/2005 RED DYE 02/10/2016 4 - Hives SULFA (SULFONAMIDE ANTIBIOTICS) 07/15/2005 Date Reviewed: 03/01/2016 Reviewed by: Bernadine Oliver Ma - Fully Assessed Reason for Visit: ED Follow-up [821] Prescriptions as of 07/27/2021 - furosemide (LASIX) 20 mg tablet Take 1 tablet by mouth twice daily. - cholecalciferol, Vitamin D3, (VITAMIN D3) 50,000 unit cap capsule Take 1 capsule by mouth once each week. - QUEtiapine XR (SEROQUEL XR) 300 mg 24 hr tablet Take 2 tablets by mouth daily at bedtime. - furosemide (LASIX) 20 mg tablet Take 0.5 tablets by mouth once daily. - cholecalciferol, Vitamin D3, (VITAMIN D3) 50,000 unit cap capsule Take 1 capsule by mouth once each week. (ONE CAPSULE) FOR VITAMIN D DEFICIENCY - cholecalciferol, Vitamin D3, (VITAMIN D3) 50,000 unit cap capsule Take 1 capsule by mouth twice a week. (ONE CAPSULE) FOR VITAMIN D DEFICIENCY - ergocalciferol, vitamin D2, (VITAMIN D) 50,000 unit capsule Take 1 capsule by mouth once each week. - clonazePAM (KLONOPIN) 0.5 mg tablet Take 1 tablet by mouth three times daily as needed. - lamoTRIgine (LAMICTAL) 100 mg tablet Take 1 tablet by mouth once daily. Problem List As Of Date 07/27/2021 Noted Resolved TOBACCO USE DISORDER [F17.200] 07/15/2005 SYSTEMIC LUPUS ERYTHEMATOSUS [M32.9] 07/15/2005 MYALGIA AND MYOSITIS NOS [[id number]] 07/15/2005 Elevated transaminase level [R74.01] 09/04/2014 Elevated blood sugar [R73.9] 09/04/2014 Mood disorder (HCC) [F39] 09/04/2014 Encounter Status:Closed by ELISABETH GREEN LPN on 07/27/21 Normal [facility] Absolute lymphocyte counton 07-26-2021 Lymphocytes Auto (Unsp spec) [#/Vol] 1.24 10*3/uL 0.83-4.51 [facility] Work Phone: Basophil percentageon 2021 Basophils/100 WBC (Bld) 0.6 % 0-1 [facility] Work Phone: Chloride [Moles/Vol] 105 mmol/L 98-[address] [facility] Work Phone: Eosinophils/100 WBC (Bld) 3.9 % 0-5 [facility] Work Phone: Glucose [Mass/Vol] 185 mg/dL 74-106 [facility] Work Phone: Comment on above: Fasting Glucose resu lt greater than or equal to 126 mg/dL suggests DIABETES MELLITUS per A.D.A. criteria. Neutrophils (Bld) [#/Vol] 3.2 10*3/uL 2.0-7.7 [facility] Work Phone: Neutrophils/100 WBC (Bld) 62.1 % 47-70 [facility] Work Phone: Potassium [Moles/Vol] 4.4 mmol/L 3.5-5.1 [facility] Work Phone: Sodium [Moles/Vol] 135 mmol/L 136-145 [facility] Work Phone: WBC (Bld) [#/Vol] 5.1 10*3/uL 4.4-11.0 [facility] Work Phone: Blood erythrocytes count (nu mber/volume)on 07-26-2021 RBC (Bld) [#/Vol] 4.66 10*6/uL 4.2-5.4 [facility] Work Phone: Blood hemoglobin measurement (mass/volume)on 07-26-2021 Hemoglobin (Bld) [Mass/Vol] 13.8 g/dL 12.0-15.0 [facility] Work Phone: Blood lymphocytes/100 leukoc yteson 07-26-2021 Lymphocytes/100 WBC (Bld) 24.5 % 19-41 [facility] Work Phone: Blood monocytes/100 leukocyt eson 07-26-2021 Monocytes/100 WBC (Bld) 8.5 % 0-10 [facility] Work Phone: Blood platelet mean volumeon 07-26-2021 Platelet mean volume (Bld) [Entitic vol] 10.1 fL 6.2-12.0 [facility] Work Phone: Determination of erythrocyte mean corpuscular volume (MCV)on 07-26-2021 MCV (RBC) [Entitic vol] 88.2 fL 81-99 [facility] Work Phone: Hematocrit Auto (Bld) [Volum e fraction]on 07-26-2021 Hematocrit (Bld) [Volume fraction] 41.1 % 37-47 [facility] Work Phone: Laboratory - Chemistry and C hemistry - challengeon 07-26-2021 CO2 [Moles/Vol] 24.0 mmol/L 21.0-32.0 [facility] Work Phone: Urea nitrogen/Creatinine [Mass ratio] 17.3 mg/mg - [facility] Work Phone: Laboratory - Hematology and Cell countson 07-26-2021 Erythrocyte distribution width (RBC) [Entitic vol] 46.8 fL 35.1-43.9 [facility] Work Phone: Erythrocyte distribution width (RBC) [Ratio] 14.6 % 11.6-14.6 [facility] Work Phone: Immature granulocytes/100 WBC (Bld) 0.400 % 0.0-0.9 [facility] Work Phone: Comment on above: IG% - Immature Granu locytes (promyelocytes, myelocytes and metamyelocytes) > 1% indicates that a LEFT SHIFT is Present. MCH (RBC) [Entitic mass] 29.6 pg 27.0-32.0 [facility] Work Phone: Nucleated RBC/100 WBC (Bld) [Ratio] 0 % 0-5 [facility] Work Phone: MCHC Auto (RBC) [Mass/Vol]on 07-26-2021 MCHC (RBC) [Mass/Vol] 33.6 g/dL 32-36 [facility] Work Phone: No Panel Informationon 07-26 Estimated Creatinine Clearance Calc 55.69 ml/min [facility] Work Phone: Estimated GFR (MDRD) Amer 84 mL/min >60 [facility] Work Phone: Comment on above: GFR Calc Estimated GFR (MDRD) Non-Af Amer 69 mL/min >60 [facility] Work Phone: Comment on above: Non- GFR Calc Platelets bldon 07-26-2021 Platelets (Bld) [#/Vol] 151 10*3/uL 150-450 [facility] Work Phone: Serum or plasma calcium kim urement (mass/volume)on 07-26-2021 Calcium [Mass/Vol] 9.2 mg/dL 8.5-10.1 [facility] Work Phone: Serum or plasma creatinine m easurement (mass/volume)on 07-26-2021 Creatinine [Mass/Vol] 0.87 mg/dL 0.55-1.02 [facility] Work Phone: Comment on above: The validity of the calculated GFR & GFRAA in patients over 70 years has not been determined. Clinical correlation is essential. Serum or plasma urea nitroge n measurement (mass/volume)on 07-26-2021 Urea nitrogen [Mass/Vol] 15 mg/dL 7-18 [facility] Work Phone: Thin prep Papanicolaou smear with manual screeningon 07-26-2021 Thin prep Papanicolaou smear with manual screening 6 5-15 [facility] Work Phone: Absolute lymphocyte counton 07-14-2021 Lymphocytes Auto (Unsp spec) [#/Vol] 1.32 10*3/uL 0.83-4.51 [facility] Work Phone: Basophil percentageon 2021 Basophils/100 WBC (Bld) 0.6 % 0-1 [facility] Work Phone: Bilirubin [Mass/Vol] 0.40 mg/dL 0.20-1.[address] [facility] Work Phone: Comment on above: For patients on eltr ombopag therapy, use of [place] TBIL is not recommended. Chloride [Moles/Vol] 104 mmol/L 98-[address] [facility] Work Phone: Eosinophils/100 WBC (Bld) 3.1 % 0-5 [facility] Work Phone: Glucose [Mass/Vol] 201 mg/dL 74-106 [facility] Work Phone: Comment on above: Glucose result great er than or equal to 200 mg/dLsuggests DIABETES MELLITUS per A.D.A. criteria. Neutrophils (Bld) [#/Vol] 3.0 10*3/uL 2.0-7.7 [facility] Work Phone: Neutrophils/100 WBC (Bld) 59.5 % 47-70 [facility] Work Phone: Potassium [Moles/Vol] 4.2 mmol/L 3.5-5.1 [facility] Work Phone: Protein [Mass/Vol] 7.6 g/dL 6.4-8.2 [facility] Work Phone: Sodium [Moles/Vol] 136 mmol/L 136-145 [facility] Work Phone: WBC (Bld) [#/Vol] 5.1 10*3/uL 4.4-11.0 [facility] Work Phone: Blood erythrocytes count (nu mber/volume)on 07-14-2021 RBC (Bld) [#/Vol] 4.23 10*6/uL 4.2-5.4 [facility] Work Phone: Blood hemoglobin measurement (mass/volume)on 07-14-2021 Hemoglobin (Bld) [Mass/Vol] 12.9 g/dL 12.0-15.0 [facility] Work Phone: Blood lymphocytes/100 leukoc yteson 07-14-2021 Lymphocytes/100 WBC (Bld) 26.0 % 19-41 [facility] Work Phone: Blood monocytes/100 leukocyt eson 07-14-2021 Monocytes/100 WBC (Bld) 10.4 % 0-10 [facility] Work Phone: Blood platelet mean volumeon 07-14-2021 Platelet mean volume (Bld) [Entitic vol] 10.9 fL 6.2-12.0 [facility] Work Phone: Determination of erythrocyte mean corpuscular volume (MCV)on 07-14-2021 MCV (RBC) [Entitic vol] 88.9 fL 81-99 [facility] Work Phone: Hematocrit Auto (Bld) [Volum e fraction]on 07-14-2021 Hematocrit (Bld) [Volume fraction] 37.6 % 37-47 [facility] Work Phone: Laboratory - Chemistry and C hemistry - challengeon 07-14-2021 ALP [Catalytic activity/Vol] 144 U/L 45-117 [facility] Work Phone: ALT [Catalytic activity/Vol] 28 U/L 13-56 [facility] Work Phone: CO2 [Moles/Vol] 24.0 mmol/L 21.0-32.0 [facility] Work Phone: Globulin (S) [Mass/Vol] 4.7 g/dL 2.2-4.2 [facility] Work Phone: Urea nitrogen/Creatinine [Mass ratio] 18.0 mg/mg 10-20 [facility] Work Phone: Laboratory - Hematology and Cell countson 07-14-2021 Erythrocyte distribution width (RBC) [Entitic vol] 46.7 fL 35.1-43.9 [facility] Work Phone: Erythrocyte distribution width (RBC) [Ratio] 14.5 % 11.6-14.6 [facility] Work Phone: Immature granulocytes/100 WBC (Bld) 0.400 % 0.0-0.9 [facility] Work Phone: Comment on above: IG% - Immature Granu locytes (promyelocytes, myelocytes and metamyelocytes) > 1% indicates that a LEFT SHIFT is Present. MCH (RBC) [Entitic mass] 30.5 pg 27.0-32.0 [facility] Work Phone: Nucleated RBC/100 WBC (Bld) [Ratio] 0 % 0-5 [facility] Work Phone: MCHC Auto (RBC) [Mass/Vol]on 07-14-2021 MCHC (RBC) [Mass/Vol] 34.3 g/dL 32-36 [facility] Work Phone: No Panel Informationon 07-14 Estimated GFR (MDRD) Amer 95 mL/min >60 [facility] Work Phone: Comment on above: GFR Calc Estimated GFR (MDRD) Non-Af Amer 78 mL/min >60 [facility] Work Phone: Comment on above: Non- GFR Calc Vitamin D 25-Hydroxy 79.0 ng/mL [facility] Work Phone: Comment on above: Vitamin D 25(OH) Sta tus Range Deficiency <20 ng/mL (50nmol/L) Insufficiency 20 - 30 ng/mL (50 - 75 nmol/L) Sufficiency 30 - 100 ng/mL (75 - 250 nmol/L) Toxicity >100 ng/mL (>250 nmol/L) Platelets bldon 07-14-2021 Platelets (Bld) [#/Vol] 170 10*3/uL 150-450 [facility] Work Phone: Serum or plasma albumin kim urement (mass/volume)on 07-14-2021 Albumin [Mass/Vol] 2.9 g/dL 3.2-5.0 [facility] Work Phone: Serum or plasma albumin/glob ulin mass ratioon 07-14-2021 Albumin/Globulin [Mass ratio] 0.6 {ratio} 0.9-2.4 [facility] Work Phone: Serum or plasma calcium kim urement (mass/volume)on 07-14-2021 Calcium [Mass/Vol] 8.7 mg/dL 8.5-10.1 [facility] Work Phone: Serum or plasma creatinine m easurement (mass/volume)on 07-14-2021 Creatinine [Mass/Vol] 0.78 mg/dL 0.55-1.02 [facility] Work Phone: Comment on above: The validity of the calculated GFR & GFRAA in patients over 70 years has not been determined. Clinical correlation is essential. Serum or plasma urea nitroge n measurement (mass/volume)on 07-14-2021 Urea nitrogen [Mass/Vol] 14 mg/dL 7-18 [facility] Work Phone: Thin prep Papanicolaou smear with manual screeningon 07-14-2021 Thin prep Papanicolaou smear with manual screening 26 U/L 15-37 [facility] Work Phone: Thin prep Papanicolaou smear with manual screening 8 5-15 [facility] Work Phone: Absolute lymphocyte counton 07-08-2021 Lymphocytes Auto (Unsp spec) [#/Vol] 1.26 10*3/uL 0.83-4.51 [facility] Work Phone: Basophil percentageon 2021 Basophils/100 WBC (Bld) 0.6 % 0-1 [facility] Work Phone: Bilirubin [Mass/Vol] 0.40 mg/dL 0.20-1.[address] [facility] Work Phone: Comment on above: For patients on eltr ombopag therapy, use of [place] TBIL is not recommended. Chloride [Moles/Vol] 104 mmol/L 98-[address] [facility] Work Phone: Eosinophils/100 WBC (Bld) 4.5 % 0-5 [facility] Work Phone: Glucose [Mass/Vol] 181 mg/dL 74-106 [facility] Work Phone: Comment on above: Fasting Glucose resu lt greater than or equal to 126 mg/dL suggests DIABETES MELLITUS per A.D.A. criteria. Neutrophils (Bld) [#/Vol] 2.8 10*3/uL 2.0-7.7 [facility] Work Phone: Neutrophils/100 WBC (Bld) 58.0 % 47-70 [facility] Work Phone: Potassium [Moles/Vol] 4.5 mmol/L 3.5-5.1 [facility] Work Phone: Protein [Mass/Vol] 7.5 g/dL 6.4-8.2 [facility] Work Phone: Sodium [Moles/Vol] 136 mmol/L 136-145 [facility] Work Phone: WBC (Bld) [#/Vol] 4.9 10*3/uL 4.4-11.0 [facility] Work Phone: Blood erythrocytes count (nu mber/volume)on 07-08-2021 RBC (Bld) [#/Vol] 4.16 10*6/uL 4.2-5.4 [facility] Work Phone: Blood hemoglobin measurement (mass/volume)on 07-08-2021 Hemoglobin (Bld) [Mass/Vol] 12.2 g/dL 12.0-15.0 [facility] Work Phone: Blood lymphocytes/100 leukoc yteson 07-08-2021 Lymphocytes/100 WBC (Bld) 25.7 % 19-41 [facility] Work Phone: Blood monocytes/100 leukocyt eson 07-08-2021 Monocytes/100 WBC (Bld) 10.8 % 0-10 [facility] Work Phone: Blood platelet mean volumeon 07-08-2021 Platelet mean volume (Bld) [Entitic vol] 11.2 fL 6.2-12.0 [facility] Work Phone: Determination of erythrocyte mean corpuscular volume (MCV)on 07-08-2021 MCV (RBC) [Entitic vol] 89.2 fL 81-99 [facility] Work Phone: Hematocrit Auto (Bld) [Volum e fraction]on 07-08-2021 Hematocrit (Bld) [Volume fraction] 37.1 % 37-47 [facility] Work Phone: Laboratory - Chemistry and C hemistry - challengeon 07-08-2021 ALP [Catalytic activity/Vol] 131 U/L 45-117 [facility] Work Phone: ALT [Catalytic activity/Vol] 32 U/L 13-56 [facility] Work Phone: CO2 [Moles/Vol] 23.0 mmol/L 21.0-32.0 [facility] Work Phone: Globulin (S) [Mass/Vol] 4.6 g/dL 2.2-4.2 [facility] Work Phone: Urea nitrogen/Creatinine [Mass ratio] 18.5 mg/mg 10-20 [facility] Work Phone: Laboratory - Hematology and Cell countson 07-08-2021 Erythrocyte distribution width (RBC) [Entitic vol] 47.6 fL 35.1-43.9 [facility] Work Phone: Erythrocyte distribution width (RBC) [Ratio] 14.6 % 11.6-14.6 [facility] Work Phone: Immature granulocytes/100 WBC (Bld) 0.400 % 0.0-0.9 [facility] Work Phone: Comment on above: IG% - Immature Granu locytes (promyelocytes, myelocytes and metamyelocytes) > 1% indicates that a LEFT SHIFT is Present. MCH (RBC) [Entitic mass] 29.3 pg 27.0-32.0 [facility] Work Phone: Nucleated RBC/100 WBC (Bld) [Ratio] 0 % 0-5 [facility] Work Phone: MCHC Auto (RBC) [Mass/Vol]on 07-08-2021 MCHC (RBC) [Mass/Vol] 32.9 g/dL 32-36 [facility] Work Phone: No Panel Informationon 07-08 Estimated GFR (MDRD) Amer 84 mL/min >60 [facility] Work Phone: Comment on above: GFR Calc Estimated GFR (MDRD) Non-Af Amer 69 mL/min >60 [facility] Work Phone: Comment on above: Non- GFR Calc Vitamin D 25-Hydroxy 88.3 ng/mL [facility] Work Phone: Comment on above: Vitamin D 25(OH) Sta tus Range Deficiency <20 ng/mL (50nmol/L) Insufficiency 20 - 30 ng/mL (50 - 75 nmol/L) Sufficiency 30 - 100 ng/mL (75 - 250 nmol/L) Toxicity >100 ng/mL (>250 nmol/L) Platelets bldon 07-08-2021 Platelets (Bld) [#/Vol] 159 10*3/uL 150-450 [facility] Work Phone: Serum or plasma albumin kim urement (mass/volume)on 07-08-2021 Albumin [Mass/Vol] 2.9 g/dL 3.2-5.0 [facility] Work Phone: Serum or plasma albumin/glob ulin mass ratioon 07-08-2021 Albumin/Globulin [Mass ratio] 0.6 {ratio} 0.9-2.4 [facility] Work Phone: Serum or plasma calcium kim urement (mass/volume)on 07-08-2021 Calcium [Mass/Vol] 9.0 mg/dL 8.5-10.1 [facility] Work Phone: Serum or plasma creatinine m easurement (mass/volume)on 07-08-2021 Creatinine [Mass/Vol] 0.87 mg/dL 0.55-1.02 [facility] Work Phone: Comment on above: The validity of the calculated GFR & GFRAA in patients over 70 years has not been determined. Clinical correlation is essential. Serum or plasma urea nitroge n measurement (mass/volume)on 07-08-2021 Urea nitrogen [Mass/Vol] 16 mg/dL 7-18 [facility] Work Phone: Thin prep Papanicolaou smear with manual screeningon 07-08-2021 Thin prep Papanicolaou smear with manual screening 32 U/L 15-37 [facility] Work Phone: Thin prep Papanicolaou smear with manual screening 9 5-15 [facility] Work Phone: No Panel Informationon 06-12 Vitamin D 25-Hydroxy 101.7 ng/mL [facility] Work Phone: Comment on above: Vitamin D 25(OH) Sta tus Range Deficiency <20 ng/mL (50nmol/L) Insufficiency 20 - 30 ng/mL (50 - 75 nmol/L) Sufficiency 30 - 100 ng/mL (75 - 250 nmol/L) Toxicity >100 ng/mL (>250 nmol/L)Evidence suggests that patients undergoing fluorescein dye angiography can retain small amounts of fluorescein in the body for up to 48 to 72 hours post-treatment. In the cases of patients with renal insufficiency, retention could be much longer. Samples containing fluorescein can produce falsely elevated values when tested with the [employer] Centaur Vitamin D assay. With fluorescein interference, observed Vitamin D values can be as high as >150 ng/mL (>375 nmol/L). Samples should be resubmitted post fluorescein clearance to ensure there is no interference with Vitamin D test results. Office Visit: Diabetes formerly [facility] 10-26-2016 Adolescent depression screening assessment Adolescent depression screening assessment Invalid Interpretation Code [facility] Work Phone: Documentation of current medications (procedure) Done Invalid Interpretation Code [facility] Work Phone: Fall risk assessment Fall risk assessment Invali d Interpretation Code [facility] Work Phone: Tobacco smoking status NHIS Never Invalid Interpretation Code [facility] Work Phone: Tobacco use [facility] Former smoker Invalid Interpretation Code [facility] Work Phone: Office Visit: Diabetes formerly [facility] 11-05-2015 Breast Mammogram screening Normal Bilateral Invalid Interpretation Code [facility] Work Phone: Colonoscopy (procedure) Colonoscopy (procedure) Invalid Interpretation Code [facility] Work Phone: Culture, urine Bacteria identified Cx Nom (U) Negative [facility] Work Phone: Bacteria identified Cx Nom (U) Escherichia coli [facility] Work Phone: Laboratory - Microbiology an d Antimicrobial susceptibility Bacteria identified Cx Nom (Bld) Negative [facility] Work Phone: No Panel Information SARS-CoV-2 & FLU Antigen (Rapid) [facility] Work Phone: Vital Signs Date Time Vital Sign Value Performing Clinician Facility 10-11-2024 07:00-0400 SaO2% (BldA) [Mass fraction] 95 % Dr. Shayna Malhotra MD Work Phone: [facility] 10-11-2024 06:49-0400 Body temperature 97.6 [degF] Dr. Shayna Malhotra MD Work Phone: [facility] 10-11-2024 06:49-0400 Diastolic blood pressure 76 mm[Hg] Dr. Shayna Malhotra MD Work Phone: [facility] 10-11-2024 06:49-0400 Heart rate 106 /min Dr. Shayna Malhotra MD Work Phone: [facility] 10-11-2024 06:49-0400 Respiratory rate 20 /min Dr. Shayna Malhotra MD Work Phone: [facility] 10-11-2024 06:49-0400 Systolic blood pressure 153 mm[Hg] Dr. Shayna Malhotra MD Work Phone: [facility] 10-11-2024 06:00-0400 Body mass index (BMI) [Ratio] 49.6 kg/m2 Dr. Shayna Malhotra MD Work Phone: [facility] 10-11-2024 06:00-0400 Body weight 135.[address] Shayna Malhotra MD Work Phone: [facility] 10-10-2024 14:58-0400 Body height 165.[address] Shayna Malhotra MD Work Phone: [facility] 10-09-2024 20:55-0400 Diastolic blood pressure 57 mm[Hg] Dr. Shayna aMlhotra MD Work Phone: [facility] 10-09-2024 20:55-0400 Heart rate 102 /min Dr. Shayna Malhotra MD Work Phone: [facility] 10-09-2024 20:55-0400 Respiratory rate 20 /min Dr. Shayna Malhotra MD Work Phone: [facility] 10-09-2024 20:55-0400 SaO2% (BldA) [Mass fraction] 98 % Dr. Shayna Malhotra MD Work Phone: [facility] 10-09-2024 20:55-0400 Systolic blood pressure 121 mm[Hg] Dr. Shayna Malhotra MD Work Phone: [facility] 10-09-2024 16:55-0400 Body height 165.[address] Shayna Malhotra MD Work Phone: [facility] 10-09-2024 16:55-0400 Body mass index (BMI) [Ratio] 49.1 kg/m2 Dr. Shayna Malhotra MD Work Phone: [facility] 10-09-2024 16:55-0400 Body temperature 97.8 [degF] Dr. Shayna Malhotra MD Work Phone: [facility] 10-09-2024 16:55-0400 Body weight [address] Shayna Malhotra MD Work Phone: [facility] 07-04-2024 13:06-0500 Body mass index (BMI) [Ratio] 49.9 kg/m2 Dr. Shayna Malhotra MD Work Phone: [facility] 07-04-2024 13:06-0500 Body temperature 97.8 [degF] Dr. Shayna Malhotra MD Work Phone: [facility] 07-04-2024 13:06-0500 Body weight 136.[address] Shayna Malhotra MD Work Phone: [facility] 07-04-2024 13:06-0500 Diastolic blood pressure 80 mm[Hg] Dr. Shayna Malhotra MD Work Phone: [facility] 07-04-2024 13:06-0500 Heart rate 107 /min Dr. Shayna Malhotra MD Work Phone: [facility] 07-04-2024 13:06-0500 Respiratory rate 16 /min Dr. Shayna Malhotra MD Work Phone: [facility] 07-04-2024 13:06-0500 SaO2% (BldA) [Mass fraction] 94 % Dr. Shayna Malhotra MD Work Phone: [facility] 07-04-2024 13:06-0500 Systolic blood pressure 142 mm[Hg] Dr. Shayna Malhotra MD Work Phone: [facility] 01-09-2023 19:06-0400 Body temperature 99.5 [degF] Dr. Shayna Malhotra Work Phone: [facility] 01-09-2023 19:06-0400 Heart rate 115 /min Dr. Shayna Malhotra Work Phone: [facility] 01-09-2023 19:06-0400 Respiratory rate 16 /min Dr. Shayna Malhotra Work Phone: [facility] 01-09-2023 19:06-0400 SaO2% (BldA) [Mass fraction] 95 % Dr. Shayna Malhotra Work Phone: [facility] 01-09-2023 17:53-0400 Diastolic blood pressure 89 mm[Hg] Dr. Shayna Malhotra Work Phone: [facility] 01-09-2023 17:53-0400 Systolic blood pressure 166 mm[Hg] Dr. Shayna Malhotra Work Phone: [facility] 01-09-2023 17:15-0400 Body height 165.[address] Shayna Malhotra Work Phone: [facility] 01-09-2023 17:15-0400 Body mass index (BMI) [Ratio] 51 kg/m2 Dr. Shayna Malhotra Work Phone: [facility] 01-09-2023 17:15-0400 Body weight 139.[address] Shayna Malhotra Work Phone: [facility] 11-24-2022 13:42-0400 Body mass index (BMI) [Ratio] 51.4 kg/m2 Dr. Shayna Malhotra Work Phone: [facility] 11-24-2022 13:42-0400 Body temperature 97.9 [degF] Dr. Shayna Malhotra Work Phone: [facility] 11-24-2022 13:42-0400 Body weight 140.[address] Shayna Malhotra Work Phone: [facility] 11-24-2022 13:42-0400 Diastolic blood pressure 67 mm[Hg] Dr. Shayna Malhotra Work Phone: [facility] 11-24-2022 13:42-0400 Heart rate 112 /min Dr. Shayna Malhotra Work Phone: [facility] 11-24-2022 13:42-0400 Respiratory rate 20 /min Dr. Shayna Malhotra Work Phone: [facility] 11-24-2022 13:42-0400 SaO2% (BldA) [Mass fraction] 92 % Dr. Shayna Malhotra Work Phone: [facility] 11-24-2022 13:42-0400 Systolic blood pressure 125 mm[Hg] Dr. Sahyna Malhotra Work Phone: [facility] 05-06-2022 16:07-0500 Body height 165.[address] Shayna Malhotra Work Phone: [facility] 05-06-2022 16:07-0500 Body mass index (BMI) [Ratio] 49.4 kg/m2 Dr. Shayna Malhotra Work Phone: [facility] 05-06-2022 16:07-0500 Body temperature 98.6 [degF] Dr. Shayna Malhotra Work Phone: [facility] 05-06-2022 16:07-0500 Body weight 134.[address] Shayna Malhotra Work Phone: [facility] 05-06-2022 16:07-0500 Diastolic blood pressure 91 mm[Hg] Dr. Shayna Malhotra Work Phone: [facility] 05-06-2022 16:07-0500 Heart rate 118 /min Dr. Shayna Malhotra Work Phone: [facility] 05-06-2022 16:07-0500 Respiratory rate 18 /min Dr. Shayna Malhotra Work Phone: [facility] 05-06-2022 16:07-0500 SaO2% (BldA) [Mass fraction] 96 % Dr. Shayna Malhotra Work Phone: [facility] 05-06-2022 16:07-0500 Systolic blood pressure 167 mm[Hg] Dr. Shayna Malhotra Work Phone: [facility] 11-24-2021 16:06-0400 Heart rate 100 /min Dr. Shayna Malhotra Work Phone: [facility] Work Phone: 11-24-2021 16:04-0400 Body temperature 98.4 [degF] Dr. Shayna Malhotra Work Phone: [facility] Work Phone: 11-24-2021 16:04-0400 Diastolic blood pressure 82 mm[Hg] Dr. Shayna Malhotra Work Phone: [facility] Work Phone: 11-24-2021 16:04-0400 Respiratory rate 17 /min Dr. Shayna Malhotra Work Phone: [facility] Work Phone: 11-24-2021 16:04-0400 SaO2% (BldA) [Mass fraction] 95 % Dr. Shayna Malhotra Work Phone: [facility] Work Phone: 11-24-2021 16:04-0400 Systolic blood pressure 147 mm[Hg] Dr. Shayna Malhotra Work Phone: [facility] Work Phone: 11-24-2021 08:43-0400 Body temperature 98 [degF] Dr. Shayna Malhotra Work Phone: [facility] Work Phone: 11-24-2021 08:43-0400 Diastolic blood pressure 61 mm[Hg] Dr. Shayna Malhotra Work Phone: [facility] Work Phone: 11-24-2021 08:43-0400 Heart rate 94 /min Dr. Shayna Malhotra Work Phone: [facility] Work Phone: 11-24-2021 08:43-0400 Respiratory rate 15 /min Dr. Shayna Malhotra Work Phone: [facility] Work Phone: 11-24-2021 08:43-0400 SaO2% (BldA) [Mass fraction] 95 % Dr. Shayna Malhotra Work Phone: [facility] Work Phone: 11-24-2021 08:43-0400 Systolic blood pressure 113 mm[Hg] Dr. Shayna Malhotra Work Phone: [facility] Work Phone: 11-24-2021 06:00-0400 Body weight 141.[address] Shayna Malhotra Work Phone: [facility] Work Phone: 11-23-2021 09:21-0400 Body height 165.[address] Shayna Malhotra Work Phone: [facility] Work Phone: 11-22-2021 17:49-0400 Body height 165.[address] Shayna Malhotra Work Phone: [facility] Work Phone: 11-22-2021 17:49-0400 Body mass index (BMI) [Ratio] 51.5 kg/m2 Dr. Shanya Malhotra Work Phone: [facility] Work Phone: 11-22-2021 17:49-0400 Body weight 140.[address] Shayna Malhotra Work Phone: [facility] Work Phone: 11-22-2021 17:05-0400 Body temperature 98.9 [degF] Dr. Shayna Malhotra Work Phone: [facility] Work Phone: 11-22-2021 17:05-0400 Diastolic blood pressure 78 mm[Hg] Dr. Shayna Malhotra Work Phone: [facility] Work Phone: 11-22-2021 17:05-0400 Heart rate 120 /min Dr. Shayna Malhotra Work Phone: [facility] Work Phone: 11-22-2021 17:05-0400 Respiratory rate 28 /min Dr. Shayna Malhotra Work Phone: [facility] Work Phone: 11-22-2021 17:05-0400 SaO2% (BldA) [Mass fraction] 96 % Dr. Shayna Malhotra Work Phone: [facility] Work Phone: 11-22-2021 17:05-0400 Systolic blood pressure 119 mm[Hg] Dr. Shayna Malhotra Work Phone: [facility] Work Phone: 10-02-2021 12:46-0400 Body height 165.1 cm Jennifer Cuevas MD Work Phone: [facility] 10-02-2021 12:46-0400 Body temperature 97.39 [degF] Jennifer Cuevas MD Work Phone: [facility] 10-02-2021 12:46-0400 Body weight 136.53 kg Jennifer Cuevas MD Work Phone: [facility] 10-02-2021 12:46-0400 Diastolic blood pressure 85 mm[Hg] Jennifer Cuevas MD Work Phone: [facility] 10-02-2021 12:46-0400 Heart rate 103 /min Jennifer Cuevas MD Work Phone: [facility] 10-02-2021 12:46-0400 Respiratory rate 20 /min Jennifer Cuevas MD Work Phone: [facility] 10-02-2021 12:46-0400 SaO2% (BldA) [Mass fraction] 98 % Jennifer Cuevas MD Work Phone: [facility] 10-02-2021 12:46-0400 Systolic blood pressure 152 mm[Hg] Jennifer Cuevas MD Work Phone: [facility] 09-22-2021 09:30-0400 Body temperature 98.4 [degF] Dr. Shayna Malhotra Work Phone: [facility] Work Phone: 09-22-2021 09:30-0400 Diastolic blood pressure 87 mm[Hg] Dr. Shayna Malhotra Work Phone: [facility] Work Phone: 09-22-2021 09:30-0400 Heart rate 85 /min Dr. Shayna Malhotra Work Phone: [facility] Work Phone: 09-22-2021 09:30-0400 Respiratory rate 17 /min Dr. Shayna Malhotra Work Phone: [facility] Work Phone: 09-22-2021 09:30-0400 SaO2% (BldA) [Mass fraction] 94 % Dr. Shayna Malhotra Work Phone: [facility] Work Phone: 09-22-2021 09:30-0400 Systolic blood pressure 151 mm[Hg] Dr. Shayna Malhotra Work Phone: [facility] Work Phone: 09-20-2021 13:57-0400 Body height 166.[address] Shayna Malhotra Work Phone: [facility] Work Phone: 09-20-2021 13:57-0400 Body weight 137.[address] Shayna Malhotra Work Phone: [facility] Work Phone: 09-20-2021 12:38-0400 Body mass index (BMI) [Ratio] 49.6 kg/m2 Dr. Shayna Malhotra Work Phone: [facility] Work Phone: 09-20-2021 12:06-0400 Body temperature 98 [degF] Dr. Shayna Malhotra Work Phone: [facility] Work Phone: 09-20-2021 12:06-0400 Diastolic blood pressure 71 mm[Hg] Dr. Shayna Malhotra Work Phone: [facility] Work Phone: 09-20-2021 12:06-0400 Heart rate 101 /min Dr. Shayna Malhotra Work Phone: [facility] Work Phone: 09-20-2021 12:06-0400 Respiratory rate 16 /min Dr. Shayna Malhotra Work Phone: [facility] Work Phone: 09-20-2021 12:06-0400 SaO2% (BldA) [Mass fraction] 97 % Dr. Shayna Malhotra Work Phone: [facility] Work Phone: 09-20-2021 12:06-0400 Systolic blood pressure 163 mm[Hg] Dr. Shayna Malhotra Work Phone: [facility] Work Phone: 09-20-2021 07:17-0400 Body height 165.[address] Shayna Malhotra Work Phone: [facility] Work Phone: 09-20-2021 07:17-0400 Body mass index (BMI) [Ratio] 52.5 kg/m2 Dr. Shayna Malhotra Work Phone: [facility] Work Phone: 09-20-2021 07:17-0400 Body weight 143.[address] Shayna Malhotra Work Phone: [facility] Work Phone: 09-01-2021 15:00-0400 Body height 165.1 cm Pst 1 [facility] 09-01-2021 15:00-0400 Body temperature 97.5 [degF] Pst 1 [facility] 09-01-2021 15:00-0400 Body weight 128.82 kg Pst 1 [facility] 09-01-2021 15:00-0400 Diastolic blood pressure 71 mm[Hg] Pst 1 [facility] 09-01-2021 15:00-0400 Heart rate 97 /min Pst 1 [facility] 09-01-2021 15:00-0400 Respiratory rate 18 /min Pst 1 [facility] 09-01-2021 15:00-0400 SaO2% (BldA) [Mass fraction] 97 % Pst 1 [facility] 09-01-2021 15:00-0400 Systolic blood pressure 127 mm[Hg] Pst 1 [facility] 08-11-2021 09:26-0500 Body mass index (BMI) [Ratio] 50.9 kg/m2 Dr. Shayna Malhotra Work Phone: [facility] Work Phone: 08-11-2021 09:26-0500 Body temperature 98.2 [degF] Dr. Shayna Malhotra Work Phone: [facility] Work Phone: 08-11-2021 09:26-0500 Body weight 138.[address] Shayna Malhotra Work Phone: [facility] Work Phone: 08-11-2021 09:26-0500 Diastolic blood pressure 83 mm[Hg] Dr. Shayna Malhotra Work Phone: [facility] Work Phone: 08-11-2021 09:26-0500 Heart rate 114 /min Dr. Shayna Malhotra Work Phone: [facility] Work Phone: 08-11-2021 09:26-0500 Respiratory rate 16 /min Dr. Shayna Malhotra Work Phone: [facility] Work Phone: 08-11-2021 09:26-0500 SaO2% (BldA) [Mass fraction] 96 % Dr. Shayna Malhotra Work Phone: [facility] Work Phone: 08-11-2021 09:26-0500 Systolic blood pressure 151 mm[Hg] Dr. Shayna Malhotra Work Phone: [facility] Work Phone: 08-11-2021 08:26-0500 Body mass index (BMI) [Ratio] 50.9 kg/m2 Dr. Shayna Malhotra Work Phone: [facility] Work Phone: 08-11-2021 08:26-0500 Body temperature 98.2 [degF] Dr. Shayna Malhotra Work Phone: [facility] Work Phone: 08-11-2021 08:26-0500 Body weight 138.[address] Shayna Malhotra Work Phone: [facility] Work Phone: 08-11-2021 08:26-0500 Diastolic blood pressure 83 mm[Hg] Dr. Shayna Malhotra Work Phone: [facility] Work Phone: 08-11-2021 08:26-0500 Heart rate 114 /min Dr. Shayna Malhotra Work Phone: [facility] Work Phone: 08-11-2021 08:26-0500 Respiratory rate 16 /min Dr. Shayna Malhotra Work Phone: [facility] Work Phone: 08-11-2021 08:26-0500 SaO2% (BldA) [Mass fraction] 96 % Dr. Shayna Malhotra Work Phone: [facility] Work Phone: 08-11-2021 08:26-0500 Systolic blood pressure 151 mm[Hg] Dr. Shayna Malhotra Work Phone: [facility] Work Phone: 07-30-2021 14:36-0500 Body mass index (BMI) [Ratio] 50.8 kg/m2 Dr. Shayna Malhotra Work Phone: [facility] Work Phone: 07-30-2021 14:36-0500 Body temperature 98.6 [degF] Dr. Shayna Malhotra Work Phone: [facility] Work Phone: 07-30-2021 14:36-0500 Body weight 138.[address] Shayna Malhotra Work Phone: [facility] Work Phone: 07-30-2021 14:36-0500 Heart rate 106 /min Dr. Shayna Malhotra Work Phone: [facility] Work Phone: 07-30-2021 14:36-0500 Respiratory rate 15 /min Dr. Shayna Malhotra Work Phone: [facility] Work Phone: 07-30-2021 13:36-0500 Body mass index (BMI) [Ratio] 50.8 kg/m2 Dr. Shayna Malhotra Work Phone: [facility] Work Phone: 07-30-2021 13:36-0500 Body temperature 98.6 [degF] Dr. Shayna Malhotra Work Phone: [facility] Work Phone: 07-30-2021 13:36-0500 Body weight 138.[address] Shayna Malhotra Work Phone: [facility] Work Phone: 07-30-2021 13:36-0500 Heart rate 106 /min Dr. Shayna Malhotra Work Phone: [facility] Work Phone: 07-30-2021 13:36-0500 Respiratory rate 15 /min Dr. Shayna Malhotra Work Phone: [facility] Work Phone: 07-26-2021 12:28-0500 Diastolic blood pressure 72 mm[Hg] Dr. Shayna Malhotra Work Phone: [facility] Work Phone: 07-26-2021 12:28-0500 Heart rate 98 /min Dr. Shayna Malhotra Work Phone: [facility] Work Phone: 07-26-2021 12:28-0500 Respiratory rate 23 /min Dr. Shayna Malhotra Work Phone: [facility] Work Phone: 07-26-2021 12:28-0500 SaO2% (BldA) [Mass fraction] 99 % Dr. Shayna Malhotra Work Phone: [facility] Work Phone: 07-26-2021 12:28-0500 Systolic blood pressure 140 mm[Hg] Dr. Shayna Malhotra Work Phone: [facility] Work Phone: 07-26-2021 11:28-0500 Diastolic blood pressure 72 mm[Hg] Dr. Shayna Malhotra Work Phone: [facility] Work Phone: 07-26-2021 11:28-0500 Heart rate 98 /min Dr. Shayna Malhotra Work Phone: [facility] Work Phone: 07-26-2021 11:28-0500 Respiratory rate 23 /min Dr. Shayna Malhotra Work Phone: [facility] Work Phone: 07-26-2021 11:28-0500 SaO2% (BldA) [Mass fraction] 99 % Dr. Shayna Malhotra Work Phone: [facility] Work Phone: 07-26-2021 11:28-0500 Systolic blood pressure 140 mm[Hg] Dr. Shayna Malhotra Work Phone: [facility] Work Phone: 07-26-2021 09:16-0500 Body mass index (BMI) [Ratio] 52.2 kg/m2 Dr. Shayna Malhotra Work Phone: [facility] Work Phone: 07-26-2021 09:16-0500 Body temperature 97.2 [degF] Dr. Shayna Malhotra Work Phone: [facility] Work Phone: 07-26-2021 09:16-0500 Body weight 142.[address] Shayna Malhotra Work Phone: [facility] Work Phone: 07-26-2021 08:16-0500 Body mass index (BMI) [Ratio] 52.2 kg/m2 Dr. Shayna Malhotra Work Phone: [facility] Work Phone: 07-26-2021 08:16-0500 Body temperature 97.2 [degF] Dr. Shayna Malhotra Work Phone: [facility] Work Phone: 07-26-2021 08:16-0500 Body weight 142.[address] Shayna Malhotra Work Phone: [facility] Work Phone: 10-26-2016 15:36-0400 BMI (Body Mass Index) 41.6 kg/m2 Sena Cox NP [facility] Work Phone: 10-26-2016 15:36-0400 BP Diastolic 97 mm[Hg] Sena Cox NP [facility] Work Phone: 10-26-2016 15:36-0400 BP Systolic 155 mm[Hg] Sena Cox NP [facility] Work Phone: 10-26-2016 15:36-0400 BSA (Body Surface Area) 2.12 m2 Sena Cox NP [facility] Work Phone: 10-26-2016 15:36-0400 Height 162.56 cm Sena Brooke ACEVEDO [facility] Work Phone: 10-26-2016 15:36-0400 Pulse (Heart Rate) 101 /min Sena Cox NP [facility] Work Phone: 10-26-2016 15:36-0400 Pulse Oximetry 97 % Sena Cox NP [facility] Work Phone: 10-26-2016 15:36-0400 Respiratory Rate 16 /min Sena Cox NP [facility] Work Phone: 10-26-2016 15:36-0400 Weight 109.95 kg Senahailey Cox NP [facility] Work Phone: Encounters Encounter Date Encounter Type Care Provider Facility Start: 11-01-2024 ambulatory Shayna Malhotra Facility :[facility] Start: 10-30-2024 ambulatory Shayna Malhotra Facility :[facility] Start: 10-25-2024 ambulatory Shaynadesi Malhotra Facility :[facility] Start: 10-11-2024 End: 10-11-2024 ambulatory Shayna Marya Facility:[facility] Start: 10-10-2024 Non-patient / Non-visit Dr. Tyrell Page MD -[facility] Work Phone: Start: 10-09-2024 ambulatory Shayna Malhotra Facility :[facility] Start: 10-09-2024 End: 10-11-2024 Evaluation and management of inpatient Dr. Missael Hernandez DO -Medical Surgical 3 Work Phone: Start: 10-09-2024 Registered Referred Shayna Puga [facility] Work Phone: Start: 10-08-2024 End: 10-09-2024 ambulatory Shayna ROSA Facility:[facility] Start: 07-09-2024 ambulatory Shayna ROSA Faci lity:[facility] Start: 07-09-2024 Registered Referred Shayna Puga [facility] Work Phone: Start: 07-04-2024 End: 07-04-[address] Shayna Malhotra MD -[facility] Work Phone: Start: 07-04-2024 End: 07-04-2024 ambulatory Shayna Malhotra Facility:[facility] Start: 06-22-2024 ambulatory Shayna Malhotra Facility :[facility] Start: 05-28-2024 End: 05-28-2024 ambulatory Shayna Malhotra Facility:[facility] Start: 04-09-2024 End: 04-09-2024 ambulatory Shayna ROSA Facility:[facility] Start: 01-09-2024 ambulatory Shaynadesi Malhotra OLS Faci lity:[facility] Start: 07-08-2023 End: 07-08-2023 ambulatory [facility] Work Phone: Start: 07-08-2023 End: 07-08-2023 Departed Referred [facility] Work Phone: Start: 04-08-2023 End: 04-08-2023 Departed [facility] Work Phone: Start: 01-09-2023 End: 01-09-2023 Emergency department patient visit Dr. Shayna Malhotra Work Phone: [facility]-Emergency Department Work Phone: Start: 11-24-2022 End: 11-24-[address] Shayna Malhotra Work Phone: [facility] Work Phone: Start: 10-13-2022 End: 10-13-[address] Shayna Malhotra Work Phone: [facility] Work Phone: Start: 08-12-2022 End: 08-12-[address] Shayna Malhotra Work Phone: [facility] Work Phone: Start: 08-12-2022 End: 08-12-[address] Shayna Malhotra Work Phone: [facility] Start: 07-13-2022 End: 07-13-[address] Shayna Malhotra Work Phone: [facility] Work Phone: Start: 07-13-2022 End: 07-13-[address] Shayna Malhotra Work Phone: [facility] Start: 06-08-2022 End: 06-08-[address] Shayna Malhotra Work Phone: [facility] Work Phone: Start: 06-08-2022 End: 06-08-[address] Shayna Malhotra Work Phone: [facility] Start: 05-06-2022 End: 05-06-[address] Shayna Malhotra Work Phone: [facility] Start: 04-13-2022 End: 04-13-2022 ambulatory [facility] Work Phone: Start: 04-13-2022 End: 04-13-2022 Departed [facility] Start: 01-01-2022 End: 01-01-[address] Shayna Malhotra Work Phone: [facility] 300 Start: 12-11-[address] Shayna Malhotra Work Phone: [facility] 300 Start: 12-01-[address] Shayna Malhotra Work Phone: [facility] 100/200 Start: 11-27-[address] Shayna Malhotra Work Phone: [facility] 100/200 Start: 11-24-2021 Non-patient / Non-visit Dr. Maryanne Malhotra Work Phone: [facility] Start: 11-23-2021 Non-patient / Non-visit Dr. Maryanne Malhotra Work Phone: [facility] Start: 11-23-2021 End: 11-24-2021 Non-patient / Non-visit Dr. Shayna Malhotra Work Phone: [facility] Start: 11-22-2021 Non-patient / Non-visit Dr. Maryanne Malhotra Work Phone: [facility] Start: 11-22-2021 End: 11-24-2021 Evaluation and management of inpatient Dr. Shayna Malhotra Work Phone: [facility]-Intensive Care Unit Start: 10-27-2021 End: 10-27-[address] Shayna Malhotra Work Phone: [facility] Start: 10-13-2021 End: 10-13-[address] Shayna Malhotra Work Phone: [facility] Start: 10-13-[address] Shayna Malhotra Work Phone: [facility] Start: 10-02-2021 End: 10-02-2021 ambulatory Jennifer Cuevas MD Work Phone: [facility] On[facility] Comment on above: Endometrial cancer ( HCC) (Primary Dx) Start: 10-02-2021 End: 10-02-2021 Patient encounter procedure Jennifer Cuevas MD Work Phone: [facility] Start: 09-22-2021 Non-patient / Non-visit Dr. Maryanne Malhotra Work Phone: [facility] Start: 09-21-2021 Telephone encounter Jennifer prasad MD Work Phone: [facility] On[facility] Comment on above: Appointment Cancelle d Start: 09-21-2021 Non-patient / Non-visit Dr. Maryanne Malhotra Work Phone: [facility] Start: 09-20-2021 Non-patient / Non-visit Dr. Maryanne Malhotra Work Phone: [facility] Start: 09-20-2021 End: 09-22-2021 Evaluation and management of inpatient Dr. Shayna Malhotra Work Phone: [facility]-Medical Surgical 3 Start: 09-10-2021 Telephone encounter Taniya Balderas APRN.CNP Work Phone: [facility] Gy[facility] Oncology Comment on above: Results Start: 09-10-2021 End: 09-10-[address] Shayna Malhotra Work Phone: [facility] Start: 09-10-[address] 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 Shayna Malhotra Work Phone[facility] Start: 08-07-2021 End: 08-07-[address] [facility] Start: 07-30-[address] Shayna Malhotra Work Phone: [facility] On[facility] Start: 07-30-2021 End: 07-30-[address] Shayna Malhotra Work Phone: [facility] Start: 07-26-2021 End: 07-26-2021 Emergency department patient visit Dr. Shayna Malhotra Work Phone: [facility]-Emergency Department Start: 07-14-[address] Shayna Malhotra Work Phone: [facility] Start: 07-08-[address] Shayna Malhotra Work Phone: [facility] Start: 06-12-[address] Shayna Malhotra Work Phone: [facility] Procedures Date Procedure Procedure Detail Performing Clinician Start: 10-11-[address] Shayna Malhotra MD Work Phone: Start: 10-11-2024 Serum inorganic phos phate measurement Dr. Shayna Malhotra MD Work Phone: Start: 10-09-2024 MRI of lower extremity Dr. Shayna Malhotra MD Work Phone: Start: 10-09-2024 Methadone measuremen t, urine Dr. Shayna Malhotra MD Work Phone: Start: 10-09-2024 Urnls dip stick/tabl et reagent auto microscopy Dr. Shayna Malhotra MD Work Phone: Start: 10-09-2024 X-ray of foot, three or more views Dr. Shayna Malhotra MD Work Phone: Start: 10-09-2024 Vitamin D, 25-hydrox y measurement Dr. Shayna Malhotra MD Work Phone: Comment on above: Vitamin D StatusDefi ciency: <20 ng/mL (50nmol/L)Insufficiency: 20-30 ng/mL (50-75 nmol/L)Sufficiency: 30-100 ng/mL (75-250 nmol/L)Toxicity: >100 ng/mL (>250 nmol/L) Start: 07-09-2024 Measurement of renal function Dr. Shayna Malhotra MD Work Phone: Comment on above: GFR Calc Start: 07-09-2024 Vitamin D, 25-hydrox y measurement Dr. Shayna Malhotra MD Work Phone: Comment on above: Vitamin D 25(OH) Sta tus Range Deficiency <20 ng/mL (50nmol/L) Insufficiency 20 - 30 ng/mL (50 - 75 nmol/L) Sufficiency 30 - 100 ng/mL (75 - 250 nmol/L) Toxicity >100 ng/mL (>250 nmol/L) Start: 11-22-2021 CT cervical spine wi thout contrast Dr. Shayna Malhotra Work Phone: Start: 11-22-2021 CT of head without contrast Dr. Shayna Malhotra Work Phone: Start: 11-22-2021 Plain chest X-ray Dr. Jean Malhotra Work Phone: Start: 09-20-2021 CT angiography of ch est with contrast Dr. Shayna Malhotra Work Phone: Start: 09-20-2021 Plain chest X-ray Dr. Jean Malhotra Work Phone: Start: 09-10-[address] Shayna Malhotra Work Phone: Start: 09-01-2021 Antibody screen Comment on above: Order Comment: Speci men Type: BLOOD SPECIMEN Ordering Facility: [facility] Address: [address] [place], [place] [id number] Performed By: #### T [id number] #### [facility] [place] [id number] [address] [place] [address] [place] Start: 08-11-2021 Plain chest X-ray Dr. Jean Malhotra Work Phone: Start: 08-07-2021 CT of abdomen and pe lvis without contrast Dr. Shayna Malhotra Work Phone: Start: 07-26-[address] Shayna Malhotra Work Phone: Start: 02-10-2016 Adult depression scr eening assessment Pst 1 Start: 02-10-2016 Mammography Pst 1 Bacteria identified in Blood by Culture Dr. Shayna Malhotra Work Phone: SARS-CoV-2 & FLU Ant igen (Rapid) Dr. Shayna Malhotra Work Phone: Urine culture Dr. Shayna Sierra hner Work Phone: Viral antigen assay Dr. Paty Malhotra Work Phone: Plan of Treatment Date Care Activity Detail Author Start: 10-11-2024 Patient discharge [facility] Start: 10-10-2024 [facility] Start: 10-10-2024 Consultation [facility] Start: 10-10-2024 Patient referral to dietitian [facility] Start: 10-09-2024 Following clinical pathway protocol [facility] Start: 10-09-2024 Assessment of risk o f venous thromboembolism [facility] Start: 10-09-2024 Care regimes management [facility] Start: 10-09-2024 Incentive spirometry [facility] Start: 10-09-2024 Insertion of cathete r into peripheral vein [facility] Start: 10-09-2024 Measuring intake and output [facility] Start: 10-09-2024 Notification of physician [facility] Start: 10-09-2024 [facility]xygen therapy [facility] [facility] Start: 10-09-2024 Providing care accor ding to standard [facility] Start: 10-09-2024 Provision of activit y privileges [facility] Start: 10-09-2024 Referral to occupati onal therapist [facility] Start: 10-09-2024 Referral to service [facility] Start: 10-09-2024 Seizure precautions [facility] Start: 10-09-2024 End: 10-09-2024 [facility] Start: 10-09-2024 MR Lower extremity W O contrast [facility] Start: 10-09-2024 MRI of lower extremity Extremi ty Lower without Contra [facility] Start: 10-09-2024 Verification routine [facility] Start: 10-09-2024 Admission procedure [facility] Start: 10-09-2024 Hospital admission, emergency, from emergency room, medical nature [facility] Start: 10-09-2024 End: 10-10-2024 [facility] Start: 10-09-2024 Thyroid stimulating hormone measurement [facility] Start: 10-09-2024 Consultation [facility] Start: 10-09-2024 Bacteria identified in Urine by Culture Urine Culture [facility] Start: 10-09-2024 Urine culture [facility] Start: 10-09-2024 Consultation [facility] Start: 10-09-2024 Patient referral to dietitian [facility] Start: 09-07-2024 DIABETES SCREEN DIABETES SCREEN [facility] Start: 07-04-2024 Patient referral [facility] Work Phone: Start: 11-24-2022 Patient referral [facility] Work Phone: Start: 05-06-2022 Patient referral [facility] Work Phone: Start: 02-04-2022 Influenza vaccination INFLUENZ A (Season Ended) [facility] Start: 11-25-2021 [facility] Work Phone: Start: 11-24-2021 Patient discharge [facility] Work Phone: Start: 11-22-2021 Troponin I measurement [facility] Work Phone: Start: 11-22-2021 Verification routine [facility] Work Phone: Start: 11-22-2021 Patient referral to dietitian [facility] Work Phone: Start: 11-22-2021 Following clinical pathway protocol [facility] Work Phone: Start: 11-22-2021 Assessment of risk o f venous thromboembolism [facility] Work Phone: Start: 11-22-2021 Care regimes management [facility] Work Phone: Start: 11-22-2021 Catheterization of vein [facility] Work Phone: Start: 11-22-2021 Insertion of cathete r into peripheral vein [facility] Work Phone: Start: 11-22-2021 Measuring intake and output [facility] Work Phone: Start: 11-22-2021 Providing care accor ding to standard [facility] Work Phone: Start: 11-22-2021 Provision of activit y privileges [facility] Work Phone: Start: 11-22-2021 Referral to occupati onal therapist [facility] Work Phone: Start: 11-22-2021 Referral to service [facility] Work Phone: Start: 11-22-2021 [facility] Work Phone: Start: 11-22-2021 Viral nucleic acid assay [facility] Work Phone: Start: 11-22-2021 Admission procedure [facility] Work Phone: Start: 11-22-2021 [facility] Work Phone: Start: 11-22-2021 End: 11-23-2021 [facility] Work Phone: Start: 11-22-2021 End: 11-22-2021 Blood culture [facility] Work Phone: Start: 09-22-2021 Patient discharge [facility] Work Phone: Start: 09-20-2021 End: 09-21-2021 [facility] Work Phone: Start: 09-20-2021 Following clinical pathway protocol [facility] Work Phone: Start: 09-20-2021 Assessment of risk o f venous thromboembolism [facility] Work Phone: Start: 09-20-2021 Care regimes management [facility] Work Phone: Start: 09-20-2021 Elevation of affecte d extremity [facility] Work Phone: Start: 09-20-2021 Insertion of cathete r into peripheral vein [facility] Work Phone: Start: 09-20-2021 Notification of physician [facility] Work Phone: Start: 09-20-2021 Providing care accor ding to standard [facility] Work Phone: Start: 09-20-2021 Provision of activit y privileges [facility] Work Phone: Start: 09-20-2021 Referral to occupati onal therapist [facility] Work Phone: Start: 09-20-2021 Referral to service [facility] Work Phone: Start: 09-20-2021 Self-administration of medication [facility] Work Phone: Start: 09-20-2021 Admission procedure [facility] Work Phone: Start: 09-20-2021 Patient referral to dietitian [facility] Work Phone: Start: 09-01-2021 End: 11-01-2021 CBC panel - Blood by Automated count [facility] Work Phone: Comment on above: Expected: 09/01/2021 , Expires: 11/01/2021 Start: 09-01-2021 End: 11-01-2021 CONFIRM BLOOD TYPE [facility] Work Phone: Comment on above: Expected: 09/01/2021 , Expires: 11/01/2021 Start: 09-01-2021 End: 11-01-2021 TYPE AND SCREEN,30 DAY [facility] Work Phone: Comment on above: Expected: 09/01/2021 , Expires: 11/01/2021 Start: 07-26-2021 Referral to oncologist [facility] Work Phone: Start: 06-06-2021 ADVANCE DIRECTIVE DISCUSSION ADVANCE DIRECTIVE DISCUSSION [facility] Start: 02-09-2021 LIPID SCREEN LIPID SCREEN [facility] Start: 02-04-2021 Influenza vaccination INFLUENZA (#1) [facility] Start: 03-01-2019 DIABETES SCREEN DIABETES SCREEN [facility] Start: 2017 BONE DENSITY BONE DENSITY [facility] Start: 2017 PNEUMOVAX AGE 65 AND OVER WITH 5YR LOOKBACK (#1) PNEUMOVAX AGE 65 AND OVER WITH 5YR LOOKBACK (#1) [facility] Start: 02-09-2017 Adult depression screening assessment DEPRESSION SCREENING [facility] Start: 02-09-2017 Mammography MAMMOGRAM [facility] Start: 12-09-2016 End: 12-09-2016 Appointment [facility] Work Phone: Start: 10-26-2016 End: 10-26-2016 Appointment Appointment [facility] Work Phone: Start: 10-26-2016 End: 10-26-2016 Appointment Appointment [facility] Work Phone: Start: 10-26-2016 End: 11-01-2016 *CMP Complete Metabolic Panel *CMP Complete Metabolic Panel [facility] Work Phone: Start: 10-26-2016 End: 11-01-2016 *Microalbumin, Creatine Ratio, rand urine *Microalbumin, Creatine Ratio, rand urine [facility] Work Phone: Start: 10-26-2016 End: 11-01-2016 HbA1c *HgA1C [facility] Work Phone: Start: 10-26-2016 End: 11-01-2016 Lipid panel [AGGREGATE] *Lipid Profile [facility] Work Phone: Start: 09-05-2011 PNEUMOCOCCAL: 65+ (2 - PCV) PNEUMOCOCCAL: 65+ (2 - PCV) [facility] Start: 2002 SHINGRIX VACCINE (1 of 2) SHINGRIX VACCINE (1 of 2) [facility] Start: 1997 COLOGUARD (FIT-DNA) COLOGUARD (FIT-D NA) [facility] Start: 1997 Colonoscopy COLONOSCOPY [facility] Start: 1997 COLORECTAL CANCER SCREENING COLORECTAL CANCER SCREENING [facility] Start: [address] COLONOGRAPHY [facility] Start: 1997 FECAL OCCULT BLOOD FECAL OCCULT BLOO D [facility] Start: 1997 SIGMOIDOSCOPY SIGMOIDOSCOPY [facility] Start: 12-28-1971 SHINGRIX VACCINE (1 of 2) SHINGRIX VACCINE (1 of 2) [facility] Start: 12-28-1971 Urine microalbumin profile DTAP,TDAP,TD (1 - Tdap) [facility] Start: 1957 COVID-19 VACCINE (#1) COVID-19 VACCI NE (#1) [facility] Start: 1957 COVID-19 VACCINE (1) COVID-19 VACCIN E (1) [facility] Amphetamines [Presen ce] in Urine by Screen method >1000 ng/mL [facility] Bacteria identified in Blood by Culture Blood Culture [facility] Work Phone: Bacteria identified in Urine by Culture Urine Culture [facility] Work Phone: Benzodiazepine measurement, urine [facility] Blood culture [facility] Work Phone: C reactive protein [Mass/volume] in Serum or Plasma [facility] Cancer Ag 125 [Units/volume] in Serum or Plasma [facility] Work Phone: Cocaine measurement, urine [facility] Erythrocyte sedimentation rate [facility] Ethanol [Mass/volume ] in Serum or Plasma [facility] fentaNYL [Presence] in Urine by Screen method [facility] Folate [Moles/volume ] in Serum or Plasma [facility] Hemoglobin A1c/Hemoglobin.total in Blood [facility] Magnesium measurement [facility] Methadone measuremen t, urine [facility] Patient Education [facility] Work Phone: Patient referral [facility] Work Phone: Phencyclidine [Prese nce] in Urine [facility] Troponin I measurement [facility] Work Phone: Urine cannabinoid measurement [facility] Urine culture [facility] Urine opiate measurement [facility] Immunizations Immunization Date Immunization Notes Care Provider Fa morteza 03-30-2016 influenza, injectabl e, quadrivalent, preservative free [facility] 03-30-2016 influenza, seasonal, injectable Dr. Shayna Malhotra Work Phone: [facility] 10-31-2012 influenza, injectabl e, quadrivalent, preservative free [facility] 10-31-2012 influenza, seasonal, injectable Dr. Shayna Malhotra Work Phone: [facility] 06-06-2012 pneumococcal polysaccharide vaccine, [address] Shayna Malhotra Work Phone: [facility] 09-04-2010 pneumococcal polysaccharide vaccine, [address] [place] [address] Work Phone: Payers Date Payer Category Payer Self-pay [id number] 2021 Medicare [id number] 2016 Unknown [id number] 2016 Unknown [id number] Unknown [id number] 2.16.8 [id number] Unknown [id number] 2.16.8 [id number] Unknown [id number] 2.16.8 [id number] Unknown [id number] 2.16.8 [id number] Unknown [id number] 2.16.8 [id number] Unknown [id number] 2.16.8 [id number] Unknown [id number] 2.16.8 [id number] Unknown [id number] 2.16.8 [id number] Unknown [id number] 2.16.8 [id number] Unknown [id number] 2.16.8 [id number] Unknown [id number] 2.16.8 [id number] Unknown [id number] 2.16.8 [id number] Unknown [id number] 2.16.8 [id number] Unknown [id number] 2.16.8 [id number] Unknown [id number] 2.16.8 [id number] Unknown [id number] 2.16.8 [id number] Social History Date Type Detail Facility Start: 07-29-2021 End: 10-09-2024 Tobacco smoking status NHIS Ex-smoker [facility] History of tobacco use Cigarette Smoker [facility] Start: 07-29-2021 Cigarettes smoked current (pack per day) - Reported 0.5 [facility] Start: 07-29-2021 Tobacco use and exposure Smokeless tobacco non-user [facility] Start: 09-01-2021 End: 10-02-2021 Alcohol intake Current non-drinker of alcohol (finding) [facility] Start: 1950 Sex Assigned At Not on file C [facility] Start: 08-22-2021 End: 10-02-2021 Exposure to SARS-CoV-2 (event) Not sure [facility] Start: 09-20-2021 End: 01-09-2023 Tobacco smoking status WIIS Unknown if ever smoked [facility] Start: 08-02-2017 None [facility] Start: 08-02-2017 Alone [facility] Start: 08-02-2017 Non-smoker [facility] Start: 1950 Sex Assigned At Female W [facility] Start: 10-09-2024 Sex Female (finding) [facility] Medical Equipment Procedure Code Equipment Code Equipment Origin al Text Equipment Identifier Dates Blood Sugar Diagnostic (Freestyle Lite Strips) strip Start: 03-01-2019 Blood Sugar Diagnostic (Freestyle Lite Strips) strip Start: 09-14-2017 Lancets (Freesty le Lancets) 28 gauge misc Start: 03-01-2019 Blood Sugar Diagnostic (Freestyle Lite Strips) strip Start: 09-14-2017 End: 09-14-2017 Blood Sugar Diagnostic (Freestyle Lite Strips) strip Start: 03-01-2019 Blood Sugar Diagnostic (Freestyle Lite Strips) strip Start: 09-14-2017 Lancets (Freesty le Lancets) 28 gauge misc Start: 03-01-2019 Blood Sugar Diagnostic (Freestyle Lite Strips) strip Start: 09-14-2017 End: 09-14-2017 Blood Sugar Diagnostic (Freestyle Lite Strips) strip Start: 03-01-2019 Blood Sugar Diagnostic (Freestyle Lite Strips) strip Start: 09-14-2017 Lancets (Freesty le Lancets) 28 gauge misc Start: 03-01-2019 Blood Sugar Diagnostic (Freestyle Lite Strips) strip Start: 09-14-2017 End: 09-14-2017 Blood Sugar Diagnostic (Freestyle Lite Strips) strip Start: 03-01-2019 Blood Sugar Diagnostic (Freestyle Lite Strips) strip Start: 09-14-2017 Lancets (Freesty le Lancets) 28 gauge misc Start: 03-01-2019 Blood Sugar Diagnostic (Freestyle Lite Strips) strip Start: 09-14-2017 End: 09-14-2017 Blood Sugar Diagnostic (Freestyle Lite Strips) strip Start: 03-01-2019 Blood Sugar Diagnostic (Freestyle Lite Strips) strip Start: 09-14-2017 Lancets (Freesty le Lancets) 28 gauge misc Start: 03-01-2019 Blood Sugar Diagnostic (Freestyle Lite Strips) strip Start: 09-14-2017 End: 09-14-2017 Blood Sugar Diagnostic (Freestyle Lite Strips) strip Start: 03-01-2019 Blood Sugar Diagnostic (Freestyle Lite Strips) strip Start: 09-14-2017 Lancets (Freesty le Lancets) 28 gauge misc Start: 03-01-2019 Blood Sugar Diagnostic (Freestyle Lite Strips) strip Start: 09-14-2017 End: 09-14-2017 Blood Sugar Diagnostic (Freestyle Lite Strips) strip Start: 03-01-2019 Blood Sugar Diagnostic (Freestyle Lite Strips) strip Start: 09-14-2017 Lancets (Freesty le Lancets) 28 gauge misc Start: 03-01-2019 Blood Sugar Diagnostic (Freestyle Lite Strips) strip Start: 09-14-2017 End: 09-14-2017 Blood Sugar Diagnostic (Freestyle Lite Strips) strip Start: 11-23-2021 Lancets (Freesty le Lancets) 28 gauge misc Start: 11-23-2021 Blood Sugar Diagnostic (Freestyle Lite Strips) strip Start: 03-01-2019 End: 11-23-2021 Blood Sugar Diagnostic (Freestyle Lite Strips) strip Start: 09-14-2017 End: 09-14-2017 Lancets (Freesty le Lancets) 28 gauge misc Start: 03-01-2019 End: 11-23-2021 Blood Sugar Diagnostic (Freestyle Lite Strips) strip Start: 11-23-2021 Lancets (Freesty le Lancets) 28 gauge misc Start: 11-23-2021 Blood Sugar Diagnostic (Freestyle Lite Strips) strip Start: 03-01-2019 End: 11-23-2021 Blood Sugar Diagnostic (Freestyle Lite Strips) strip Start: 09-14-2017 End: 09-14-2017 Lancets (Freesty le Lancets) 28 gauge misc Start: 03-01-2019 End: 11-23-2021 Blood Sugar Diagnostic (Freestyle Lite Strips) strip Start: 11-23-2021 Lancets (Freesty le Lancets) 28 gauge misc Start: 11-23-2021 Blood Sugar Diagnostic (Freestyle Lite Strips) strip Start: 03-01-2019 End: 11-23-2021 Blood Sugar Diagnostic (Freestyle Lite Strips) strip Start: 09-14-2017 End: 09-14-2017 Lancets (Freesty le Lancets) 28 gauge misc Start: 03-01-2019 End: 11-23-2021 Blood Sugar Diagnostic (Freestyle Lite Strips) strip Start: 11-23-2021 Lancets (Freesty le Lancets) 28 gauge misc Start: 11-23-2021 Blood Sugar Diagnostic (Freestyle Lite Strips) strip Start: 03-01-2019 End: 11-23-2021 Blood Sugar Diagnostic (Freestyle Lite Strips) strip Start: 09-14-2017 End: 09-14-2017 Lancets (Freesty le Lancets) 28 gauge misc Start: 03-01-2019 End: 11-23-2021 Blood Sugar Diagnostic (Freestyle Lite Strips) strip Start: 11-23-2021 Lancets (Freesty le Lancets) 28 gauge misc Start: 11-23-2021 Blood Sugar Diagnostic (Freestyle Lite Strips) strip Start: 03-01-2019 End: 11-23-2021 Blood Sugar Diagnostic (Freestyle Lite Strips) strip Start: 09-14-2017 End: 09-14-2017 Lancets (Freesty le Lancets) 28 gauge misc Start: 03-01-2019 End: 11-23-2021 Blood Sugar Diagnostic (Freestyle Lite Strips) strip Start: 11-23-2021 Lancets (Freesty le Lancets) 28 gauge misc Start: 11-23-2021 Blood Sugar Diagnostic (Freestyle Lite Strips) strip Start: 03-01-2019 End: 11-23-2021 Blood Sugar Diagnostic (Freestyle Lite Strips) strip Start: 09-14-2017 End: 09-14-2017 Lancets (Freesty le Lancets) 28 gauge misc Start: 03-01-2019 End: 11-23-2021 Blood Sugar Diagnostic (Freestyle Lite Strips) strip Start: 11-23-2021 Lancets (Freesty le Lancets) 28 gauge misc Start: 11-23-2021 Blood Sugar Diagnostic (Freestyle Lite Strips) strip Start: 03-01-2019 End: 11-23-2021 Blood Sugar Diagnostic (Freestyle Lite Strips) strip Start: 09-14-2017 End: 09-14-2017 Lancets (Freesty le Lancets) 28 gauge misc Start: 03-01-2019 End: 11-23-2021 Blood Sugar Diagnostic (Freestyle Lite Strips) strip Start: 11-23-2021 Lancets (Freesty le Lancets) 28 gauge misc Start: 11-23-2021 Blood Sugar Diagnostic (Freestyle Lite Strips) strip Start: 03-01-2019 End: 11-23-2021 Blood Sugar Diagnostic (Freestyle Lite Strips) strip Start: 09-14-2017 End: 09-14-2017 Lancets (Freesty le Lancets) 28 gauge misc Start: 03-01-2019 End: 11-23-2021 Blood Sugar Diagnostic (Freestyle Lite Strips) strip Start: 11-23-2021 Lancets (Freesty le Lancets) 28 gauge misc Start: 11-23-2021 Blood Sugar Diagnostic (Freestyle Lite Strips) strip Start: 03-01-2019 End: 11-23-2021 Blood Sugar Diagnostic (Freestyle Lite Strips) strip Start: 09-14-2017 End: 09-14-2017 Lancets (Freesty le Lancets) 28 gauge misc Start: 03-01-2019 End: 11-23-2021 Blood Sugar Diagnostic (Freestyle Lite Strips) strip Start: 11-23-2021 Lancets (Freesty le Lancets) 28 gauge misc Start: 11-23-2021 Blood Sugar Diagnostic (Freestyle Lite Strips) strip Start: 03-01-2019 End: 11-23-2021 Blood Sugar Diagnostic (Freestyle Lite Strips) strip Start: 09-14-2017 End: 09-14-2017 Lancets (Freesty le Lancets) 28 gauge misc Start: 03-01-2019 End: 11-23-2021 Blood Sugar Diagnostic (Freestyle Lite Strips) strip Start: 11-23-2021 Lancets (Freesty le Lancets) 28 gauge misc Start: 11-23-2021 Blood Sugar Diagnostic (Freestyle Lite Strips) strip Start: 03-01-2019 End: 11-23-2021 Blood Sugar Diagnostic (Freestyle Lite Strips) strip Start: 09-14-2017 End: 09-14-2017 Lancets (Freesty le Lancets) 28 gauge misc Start: 03-01-2019 End: 11-23-2021 Goals Date Patient Goal Desired Activity /State Functional Status Date Assessment Result Facility 10-11-2024 Functional status Activity Abili ty With Assist of 2 [facility] Work Phone: 10-10-2024 Functional status Active Range of Motion [facility] Work Phone: 11-24-2021 Functional status Ambulates;Chair [facility] Work Phone: 09-22-2021 Functional status Ambulates [facility] Work Phone: 09-22-2021 Functional status Ambulates [facility] Work Phone: 09-21-2021 Functional status Tolerates Activity Well [facility] Work Phone: Mental Status Date Assessment Result Facility 10-11-2024 Cognitive function Voice/Name [facility] Work Phone: 10-10-2024 Cognitive function Cooperative;Anxious;Ta lkative [facility] Work Phone: 11-24-2021 Cognitive function Voice/Name [facility] Work Phone: 09-22-2021 Cognitive function Voice/Name [facility] Work Phone: 09-20-2021 Cognitive function Level Of Cons ciousness Awake;Alert;Appropriate;Follow s Commands;Drowsy [facility] Work Phone: Clinical Notes 07-29-2021 to 10-11-2024 Note Date & Type Note Facility 10-11-2024 Note [facility] Medical Records Department [address] [place] [address] Discharge Summary 10/11/24 1135 MR#: [id number] Acct: [id number] Name: VIDA NINA Rep #: [id number] : 1950 73 From: Tyrell Page MD PCP: Dr. Shayna Malhotra MD Status:DIS IN [place] [facility] [place] [id number] Providers Date of Admission: 10/09/24 Date of Discharge: 10/11/24 Primary Care Physician: Dr. Shayna Malhotra MD Reason For Visit: ACUTE CYSTITIS, NEUROPATHIC PAIN OF LEFT FOOT AND Diagnosis Discharge Diagnosis (1) Acute cystitis with hematuria: Status: Acute Code(s): N30.01 - Acute cystitis with hematuria (2) Neuropathic pain of foot: Status: Acute Code(s): M79.2 - Neuralgia and neuritis, unspecified (3) Poor hygiene: Status: Acute Code(s): R46.0 - Very low level of personal hygiene (4) Unable to care for self: Status: Acute Code(s): Z78.9 - Other specified health status (5) Bipolar 1 disorder: Status: Acute Code(s): F31.9 - Bipolar disorder, unspecified (6) Morbid obesity with BMI of 45.0-49.9, adult: Status: Acute Code(s): E66.01 - Morbid (severe) obesity due to excess calories; Z68.42 - Body mass index [BMI] 45.0-49.9, adult (7) DM2 (diabetes mellitus, type 2): Status: Chronic Code(s): E11.9 - Type 2 diabetes mellitus without complications Qualifiers: Diabetes mellitus complication status: with other specified complication 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 She had pins placed in her left foot approximately 15 years ago after she had fracture in the heel. She cannot bear weight 1. Severe left heel pain with history of left talar fracture about 15 years ago: CT of lower extremity reviewed and shows lateral calcaneal plate with screws are intact. No fracture identified. No dislocation. 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 No osseous destruction but marked soft tissue subcutaneous swelling edema appears greater anterior medial and posteriorly. No definite deep fascial or muscular edema. No soft tissue gas. Will consult customer account representative for further opinion. PT and OT and pain control. CRP and ESR elevated. 8: Yesterday evening patient has psychotic symptoms of hallucinations, disordered behavior, disorganized apparel, talking nonstop and hypomania. Crisis management were called and he discussed with her. Patient was pink slipped last night. Patient is medically stable. Patient was picked up at 9 AM. 2. Abnormal UA, unclear about UTI: Patient cannot give history about lower urinary tract symptoms as she is in hypomania state. UA shows LE 100 but nitrite negative, WBC more than 100 cells, RBC 10-25, squamous epithelial 0-5 cells. Bacteria 4+. Empirically on IV ceftriaxone. Prelim urine culture shows GNR 80,000???100,000 colonies 10/11: UTI ruled out but patient might have colonization. Patient is transferred to inpatient psych unit on recommended 2 more doses of IV ceftriaxone. 3 bipolar 1 disorder; in hypomania episode: Patient is talking nonstop, not directable, cannot answer question, circumstantial and tangential thoughts and behavioral disorder: Patient on Seroquel. Clonazepam added. As mentioned above Morbid Obesity; with a BMI of 49.2 kg/m2 this admisson - Weight loss recommended DM-2; of unknown control on dulaglutide weekly, empagliflozin daily, insulin glargine 40 units SQ twice daily and insulin lispro 3 times daily AC: Accu-Chek before meals and at bedtime with Humalog sliding scale coverage and hypoglycemia protocol. Glucose is 165, 159 acceptable range. Essential hypertension; on lisinopril - Resume lisinopril as before. BP elevated 149/89. Hyperlipidemia; on atorvastatin - Continue statin TSH 4.73 upper limit normal. B12 379. Folic acid normal. Chronic history of seizures; on lamotrigine - Current treatment to be resumed plus give as needed IV lorazepam for breakthrough seizure activity. Former tobacco abuse times 45 years (quit 2017) DVT prophylaxis - Enoxaparin 40 mg sq BID. Patient noted to have moderate thrombocytopenia of 106K present on admission with plan to discontinue this agent if platelet count drops below 100K. Patient was discharged to inpatient psych unit. Full code Microbiology Past 72 Hours 10/09/24 20:10 Urine, Clean Catch Urine Culture - Preliminary Gram negative jamaal Laboratory Results 10/09/24 18:55: WBC 6.8, RBC 4.67, Hgb 13.5, Hct 40.8, MCV 87.4, MCH 28.9, MCHC 33.1, RDW Std Deviation 51.0 H, RDW Coeff of Bebo 15.9 H, Plt Count 106 L, MPV 11.8, Immature Gran % (Auto) 0.400, Neut % (Auto) 72.1 H, Lymph % (Auto) 16.3 L, Larue % (Auto) 8.3, Eos % (Auto) 2.5, Baso % (more content not included)... [facility] 10-10-2024 Progress note Note Date/Time October 10, 2024 4:49pm [facility] Medical Records Department [address] [place] [address] Progress Note - Hospitalist 10/10/24 0739 MR#: [id number] Acct: [id number] Name: VIDA INNA Rep #:[id number] : 1950 73 From: Tyrell Resendez PCP: Dr. Shayna Malhotra MD Status:ADM IN Location: [place] [id number] Reason for Visit Reason for Visit: Diagnoses Type 2 diabetes mellitus with other specified complication (10/09/24) Morbid (severe) obesity due to excess calories (10/09/24) Bipolar disorder, unspecified (10/09/24) Neuralgia and neuritis, unspecified (10/09/24) Acute cystitis with hematuria (10/09/24) Very low level of personal hygiene (10/09/24) Body mass index [BMI] 45.0-49.9, adult (10/09/24) Other specified health status (10/09/24) [facility] (current) use of insulin (10/09/24) Objective Data Objective Data Vital Signs: Vital Signs Temp Pulse Resp BP Pulse Ox O2 Del Method 98.7 F 96 18 133/66 H 98 Room Air 10/10/24 05:33 10/10/24 05:33 10/10/24 05:33 10/10/24 05:33 10/10/24 05:33 10/10/24 05:33 Oxygen Delivery Method Room Air Weight: 292 lb 5.327 oz Body Mass Index (BMI) 48.6 Intake & Output: Intake and Output for Last 24 Hours 10/08/24 10/09/24 10/10/24 23:59 23:59 23:59 Intake Total 50 / 50 Output Total 1150 / 1150 Balance 50 / -500 -1150 / -1150 Lab / Micro Data 10/10/24 05:21 10/10/24 05:21 Labs: Laboratory Results - last 24 hr 10/09/24 18:55: WBC 6.8, RBC 4.67, Hgb 13.5, Hct 40.8, MCV 87.4, MCH 28.9, MCHC 33.1, RDW Std Deviation 51.0 H, RDW Coeff of Bebo 15.9 H, Plt Count 106 L, MPV 11.8, Immature Gran % (Auto) 0.400, Neut % (Auto) 72.1 H, Lymph % (Auto) 16.3 L, Larue % (Auto) 8.3, Eos % (Auto) 2.5, Baso % (Auto) 0.4, Absolute Neuts (auto) 4.9, Absolute Lymphs (auto) 1.11, Nucleated RBC % 0, ESR 49 H, Sodium 138, Potassium 4.5, Chloride 106, Carbon Dioxide 21.0, Anion Gap 11, BUN 23 H, Creatinine 0.88, Estim Creat Clear Calc 81.27, Est GFR (MDRD) Non-Af 70, BUN/Creatinine Ratio 26.6 H, Glucose 138 H, Hemoglobin A1c 7.2 H, Calcium 9.7, Magnesium 2.1, Total Bilirubin 0.67, AST 40 H, ALT 23, Alkaline Phosphatase 135 H, C-React Prot Ext Range 5.92 H, Total Protein 8.4, Albumin 3.8, Globulin 4.6 H, Albumin/Globulin Ratio 0.8 L, Vitamin B12 379, TSH 4.730 H, Ethyl Alcohol < 10.1 10/09/24 20:10: Urine Color Yellow, Urine Clarity Cloudy, Urine pH 5.0, Ur Specific [place] 1.020, Urine Protein 30 H, Urine Glucose (UA) 1000 H, Urine Ketones Negative, Urine Occult Blood 150 H, Urine Nitrite Negative, Urine Bilirubin Negative, Urine Urobilinogen 1 H, Ur Leukocyte Esterase 100 H, Urine RBC 10-25 SEEN, Urine WBC >100 SEEN, Ur Squamous Epith Cells 0-5 SEEN, Ur Transition Epith Cell 0-5 SEEN, Amorphous Sediment 1+, Urine Bacteria 4+, Urine Mucus 0 SEEN, Urine Opiates Screen NEGATIVE, U Buprenorphine Qual NEGATIVE, Ur Oxycodone Screen NEGATIVE, Urine Methadone Screen NEGATIVE, Urine Fentanyl Screen NEGATIVE, Ur Barbiturates Screen NEGATIVE, Ur Phencyclidine Scrn NEGATIVE, Ur Amphetamines Screen NEGATIVE, U Benzodiazepines Scrn NEGATIVE, Urine Cocaine Screen NEGATIVE, U Cannabinoids Screen NEGATIVE 10/09/24 23:50: POC Glucose 148 H 10/10/24 05:21: WBC 5.3, RBC 4.27, Hgb 12.3, Hct 37.6, MCV 88.1, MCH 28.8, MCHC 32.7, RDW Std Deviation 51.4 H, RDW Coeff of Bebo 15.9 H, Plt Count 100 L, MPV 11.7, Immature Gran % (Auto) 0.200, Neut % (Auto) 65.4, Lymph % (Auto) 19.6, Larue % (Auto) 9.1, Eos % (Auto) 5.1 H, Baso % (Auto) 0.6, Absolute Neuts (auto) 3.4, Absolute Lymphs (auto) 1.03, Nucleated RBC % 0, Sodium Cancelled 10/10/24 05:21: Sodium 138, Potassium Cancelled 10/10/24 05:21: Potassium 4.3, Chloride Cancelled 10/10/24 05:21: Chloride 106, Carbon Dioxide Cancelled 10/10/24 05:21: Carbon Dioxide 19.0 L, Anion Gap Cancelled 10/10/24 05:21: Anion Gap 13, BUN Cancelled 10/10/24 05:21: BUN 20 H, Creatinine Cancelled 10/10/24 05:21: Creatinine 0.78, Estim Creat Clear Calc 88.83, Est GFR (MDRD) Non-Af Cancelled 10/10/24 05:21: Est GFR (MDRD) Non-Af 81, BUN/Creatinine Ratio Cancelled 10/10/24 05:21: BUN/Creatinine Ratio 25.4 H, Glucose Cancelled 10/10/24 05:21: Glucose 151 H, Calcium Cancelled 10/10/24 05:21: Calcium 8.9, Phosphorus 3.3, Total Bilirubin Cancelled 10/10/24 05:21: Total Bilirubin 0.68, AST Cancelled 10/10/24 05:21: AST 37 H, ALT Cancelled 10/10/24 05:21: ALT 23, Alkaline Phosphatase Cancelled 10/10/24 05:21: Alkaline Phosphatase 122 H, Total Protein Cancelled 10/10/24 05:21: Total Protein 7.2, Albumin Cancelled 10/10/24 05:21: Albumin 3.5, Globulin Cancelled 10/10/24 05:21: Globulin 3.7, Albumin/Globulin Ratio Cancelled 10/10/24 05:21: Albumin/Globulin Ratio 1.0, Triglycerides 82, Cholesterol 103, LDL Cholesterol, Calc 31, VLDL Cholesterol 16, HDL Cholesterol 56, Cholesterol/HDL Ratio 1.84, Serum Folate 7.20 10/10/24 05:45: POC Glucose 159 H Radiography Diagnostic Testing: Radiology Impression Foot X-Ray 10/09/24 17:28 IMPRESSION: Status post internal fixation of calcaneal fracture. Mild degenerative arthritic changes. Soft tissue swelling. Reading Location: [facility] Lower Extremity CT 10/09/24 22:15 IMPRESSION: Lateral calcaneal plate with screws and cannulated screw appears intact. No fracture identified. No dislocation. Moderate posterior subtalar and mild anterior subtalar joint osteoarthrosis. No osseous destruction or periosteal reaction identified. There is marked soft tissue subcutaneous swelling, edema which appears greater anterior, medial and posteriorly, clinically correlate with numerous soft tissue calcifications that can be seen with venous stasis. No definite deep fascial or muscular edema identified by CT. No soft tissue gas identified. Findings discussed by myself by phone with Dr. Hernandez at 2:20 a.m. 10/10/2024 Reading Location: [facility] Physical Exam Narrative Seen and examined. Patient is talking nonstop. As per nursing staff she has been talking for last 3 days, sleeping less, hypomania condition. She is not directable and does not reply to the ask questions. Physical exam General: Alert, unclear about the orientation. HEENT: Atraumatic, PERRLA, EOMI, Normocephalic. Oral: No Gingival or Mucosal Lesions/ Ulcerations Neck: Supple, No JVD, Negative Carotid Bruits Chest wall/Lungs: Air entry diminished in bilateral lung bases. No crepitation/rhonchi Cardiovascular: Regular rate and rhythm, Normal S1,S2, No M/G/R Abdomen: Bowel Sounds Present, Soft, Non Tender, Non-Distended : No dysuria. No renal angle tenderness. No suprapubic tenderness. Extremities: Bilateral lower extremity with lymphedema, chronic capillary Refill Less than 3 Seconds Skin: Purulent stain on the sheet probably from left leg. Intertriginous dermatitis/candidiasis Musculoskeletal: No Tenderness to Palpation of Joints or Extremities Neurological: Cranial nerves II-XII grossly intact, DTR 2+/4. No acute focal neurological deficit. Psych/Mental Status: Hypomania and behavior, talking nonstop. Does not follow command. Circumstantial ideas and thoughts Assessment & Plan Assessment/Plan (1) Acute cystitis with hematuria: (2) Neuropathic pain of foot: (3) Poor hygiene: (4) Unable to care for self: (5) Bipolar 1 disorder: (6) Morbid obesity with BMI of 45.0-49.9, adult: (7) DM2 (diabetes mellitus, type 2): QUALIFIERS: Diabetes mellitus complication status: with other specified complication Diabetes mellitus retirement insulin use: with oysterman use Qualified Code(s): E11.69 - Type 2 diabetes mellitus with other specified complication; Z79.4 - [facility] (current) use of insulin PLAN: Plan 73-year-old female being admitted for increasing left foot/heel pain for last 2 weeks. She had pins placed in her left foot approximately 15 years ago after she had fracture in the heel. She cannot bear weight 1. Severe left heel pain with history of left talar fracture about 15 years ago: CT of lower extremity reviewed and shows lateral calcaneal plate with screws are intact. No fracture identified. No dislocation. 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 No osseous destruction but marked soft tissue subcutaneous swelling edema appears greater anterior medial and posteriorly. No definite deep fascial or muscular edema. No soft tissue gas. Will consult customer account representative for further opinion. PT and OT and pain control. CRP and ESR elevated. 2. Abnormal UA, unclear about UTI: Patient cannot give history about lower urinary tract symptoms as she is in hypomania state. UA shows LE 100 but nitrite negative, WBC more than 100 cells, RBC 10-25, squamous epithelial 0-5 cells. Bacteria 4+. Empirically on IV ceftriaxone. Prelim urine culture shows GNR 80,000?100,000 colonies 3 bipolar 1 disorder; in hypomania episode: Patient is talking nonstop, not directable, cannot answer question, circumstantial and tangential thoughts and behavioral disorder: Patient on Seroquel. Clonazepam added. Morbid Obesity; with a BMI of 49.2 kg/m2 this admisson - Weight loss recommended DM-2; of unknown control on dulaglutide weekly, empagliflozin daily, insulin glargine 40 units SQ twice daily and insulin lispro 3 times daily AC: Accu-Chek before meals and at bedtime with Humalog sliding scale coverage and hypoglycemia protocol. Glucose is 165, 159 acceptable range. Essential hypertension; on lisinopril - Resume lisinopril as before. BP elevated 149/89. Hyperlipidemia; on atorvastatin - Continue statin TSH 4.73 upper limit normal. B12 379. Folic acid normal. Chronic history of seizures; on lamotrigine - Current treatment to be resumed plus give as needed IV lorazepam for breakthrough seizure activity. 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 Patient noted to have moderate thrombocytopenia of 106K present on admission with plan to discontinue this agent if platelet count drops below 100K. Full code Microbiology Past 72 Hours 10/09/24 20:10 Urine, Clean Catch Urine Culture - Preliminary Gram negative jamaal Laboratory Results 10/09/24 18:55: WBC 6.8, RBC 4.67, Hgb 13.5, Hct 40.8, MCV 87.4, MCH 28.9, MCHC 33.1, RDW Std Deviation 51.0 H, RDW Coeff of Bebo 15.9 H, Plt Count 106 L, MPV 11.8, Immature Gran % (Auto) 0.400, Neut % (Auto) 72.1 H, Lymph % (Auto) 16.3 L, Larue % (Auto) 8.3, Eos % (Auto) 2.5, Baso % (Auto) 0.4, Absolute Neuts (auto) 4.9, Absolute Lymphs (auto) 1.11, Nucleated RBC % 0, ESR 49 H, Sodium 138, Potassium 4.5, Chloride 106, Carbon Dioxide 21.0, Anion Gap 11, BUN 23 H, Creatinine 0.88, Estim Creat Clear Calc 81.27, Est GFR (MDRD) Non-Af 70, BUN/Creatinine Ratio 26.6 H, Glucose 138 H, Hemoglobin A1c 7.2 H, Calcium 9.7, Magnesium 2.1, Total Bilirubin 0.67, AST 40 H, ALT 23, Alkaline Phosphatase 135 H, C-React Prot Ext Range 5.92 H, Total Protein 8.4, Albumin 3.8, Globulin 4.6 H, Albumin/Globulin Ratio 0.8 L, Vitamin B12 379, TSH 4.730 H, Ethyl Alcohol < 10.1 10/09/24 20:10: Urine Color Yellow, Urine Clarity Cloudy, Urine pH 5.0, Ur Specific [place] 1.020, Urine Protein 30 H, Urine Glucose (UA) 1000 H, Urine Ketones Negative, Urine Occult Blood 150 H, Urine Nitrite Negative, Urine Bilirubin Negative, Urine Urobilinogen 1 H, Ur Leukocyte Esterase 100 H, Urine RBC 10-25 SEEN, Urine WBC >100 SEEN, Ur Squamous Epith Cells 0-5 SEEN, Ur Transition Epith Cell 0-5 SEEN, Amorphous Sediment 1+, Urine Bacteria 4+, Urine Mucus 0 SEEN, Urine Opiates Screen NEGATIVE, U Buprenorphine Qual NEGATIVE, Ur Oxycodone Screen NEGATIVE, Urine Methadone Screen NEGATIVE, Urine Fentanyl Screen NEGATIVE, Ur Barbiturates Screen NEGATIVE, Ur Phencyclidine Scrn NEGATIVE, Ur Amphetamines Screen NEGATIVE, U Benzodiazepines Scrn NEGATIVE, Urine Cocaine Screen NEGATIVE, U Cannabinoids Screen NEGATIVE 10/09/24 23:50: POC Glucose 148 H 10/10/24 05:21: WBC 5.3, RBC 4.27, Hgb 12.3, Hct 37.6, MCV 88.1, MCH 28.8, MCHC 32.7, RDW Std Deviation 51.4 H, RDW Coeff of Bebo 15.9 H, Plt Count 100 L, MPV 11.7, Immature Gran % (Auto) 0.200, Neut % (Auto) 65.4, Lymph % (Auto) 19.6, Larue % (Auto) 9.1, Eos % (Auto) 5.1 H, Baso % (Auto) 0.6, Absolute Neuts (auto) 3.4, Absolute Lymphs (auto) 1.03, Nucleated RBC % 0, Sodium Cancelled 10/10/24 05:21: Sodium 138, Potassium Cancelled 10/10/24 05:21: Potassium 4.3, Chloride Cancelled 10/10/24 05:21: Chloride 106, Carbon Dioxide Cancelled 10/10/24 05:21: Carbon Dioxide 19.0 L, Anion Gap Cancelled 10/10/24 05:21: Anion Gap 13, BUN Cancelled 10/10/24 05:21: BUN 20 H, Creatinine Cancelled 10/10/24 05:21: Creatinine 0.78, Estim Creat Clear Calc 88.83, Est GFR (MDRD) Non-Af Cancelled 10/10/24 05:21: Est GFR (MDRD) Non-Af 81, BUN/Creatinine Ratio Cancelled 10/10/24 05:21: BUN/Creatinine Ratio 25.4 H, Glucose Cancelled 10/10/24 05:21: Glucose 151 H, Calcium Cancelled 10/10/24 05:21: Calcium 8.9, Phosphorus 3.3, Total Bilirubin Cancelled 10/10/24 05:21: Total Bilirubin 0.68, AST Cancelled 10/10/24 05:21: AST 37 H, ALT Cancelled 10/10/24 05:21: ALT 23, Alkaline Phosphatase Cancelled 10/10/24 05:21: Alkaline Phosphatase 122 H, Total Protein Cancelled 10/10/24 05:21: Total Protein 7.2, Albumin Cancelled 10/10/24 05:21: Albumin 3.5, Globulin Cancelled 10/10/24 05:21: Globulin 3.7, Albumin/Globulin Ratio Cancelled 10/10/24 05:21: Albumin/Globulin Ratio 1.0, Triglycerides 82, Cholesterol 103, LDL Cholesterol, Calc 31, VLDL Cholesterol 16, HDL Cholesterol 56, Cholesterol/HDL Ratio 1.84, Serum Folate 7.20 10/10/24 05:45: POC Glucose 159 H 10/10/24 11:56: POC Glucose 165 H Charges/Coding Visit Charges Inpatient E&M: 88594 Subs Hosp L2 10/10/24 1530 <Electronically signed by Tyrell Page MD> Cosigner Signature (if applicable): CC: ~ Signed ADDENDUM by Dr. Tyrell Page MD on 10/10/24 at 1649 Addendum Patient was seen and examined in afternoon about 4 PM. She is having visual hallucination and talking to invisible person, Cat Wheeler, agitated, standing up on the window. Disorganized behavior and apparel and appearance Seroquel dose increased to 400 mg twice daily. Clonazepam changed to 0.5 mg Q6 hourly as needed for agitation and Phenergan 12.5 mg IM every 6 hours as needed for agitation. Patient has acute psychosis episode/manic episode. I do not think it is exacerbating medical condition. Patient is medically cleared for crisis management to evaluate and probably will need inpatient psych unit facility transfer 10/10/24 3002<Electronically signed by Tyrell Page MD> Cosigner Signature (if applicable): cc: ~* Signed [facility] Work Phone: [phone] Progress note [facility] Medical Records Department [address] [place] [address] Progress Note - Hospitalist 10/10/24 0739 MR#: [id number] Acct: [id number] Name: VIDA NINA Rep #:[id number] : 1950 73 From: Tyrell Resendez PCP: Dr. 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 (10/09/24) Objective Data Objective Data Vital Signs: Vital Signs Temp Pulse Resp BP Pulse Ox O2 Del Method 98.7 F 96 18 133/66 H 98 Room Air 10/10/24 05:33 10/10/24 05:33 10/10/24 05:33 10/10/24 05:33 10/10/24 05:33 10/10/24 05:33 Oxygen Delivery Method Room Air Weight: 292 lb 5.327 oz Body Mass Index (BMI) 48.6 Intake & Output: Intake and Output for Last 24 Hours 10/08/24 10/09/24 10/10/24 23:59 23:59 23:59 Intake Total 50 / 50 Output Total 1150 / 1150 Balance 50 / -500 -1150 / -1150 Lab / Micro Data 10/10/24 05:21 10/10/24 05:21 Labs: Laboratory Results - last 24 hr 10/09/24 18:55: WBC 6.8, RBC 4.67, Hgb 13.5, Hct 40.8, MCV 87.4, MCH 28.9, MCHC 33.1, RDW Std Deviation 51.0 H, RDW Coeff of Bebo 15.9 H, Plt Count 106 L, MPV 11.8, Immature Gran % (Auto) 0.400, Neut % (Auto) 72.1 H, Lymph % (Auto) 16.3 L, Larue % (Auto) 8.3, Eos % (Auto) 2.5, Baso % (Auto) 0.4, Absolute Neuts (auto) 4.9, Absolute Lymphs (auto) 1.11, Nucleated RBC % 0, ESR 49 H, Sodium 138, Potassium 4.5, Chloride 106, Carbon Dioxide 21.0, Anion Gap 11, BUN 23 H, Creatinine 0.88, Estim Creat Clear Calc 81.27, Est GFR (MDRD) Non-Af 70, BUN/Creatinine Ratio 26.6 H, Glucose 138H, Hemoglobin A1c 7.2 H, Calcium 9.7, Magnesium 2.1, Total Bilirubin 0.67, AST 40 H, ALT 23, Alkaline Phosphatase 135 H, C-React Prot Ext Range 5.92 H, Total Protein 8.4, Albumin 3.8, Globulin 4.6 H,Albumin/Globulin Ratio 0.8 L, Vitamin B12 379, TSH 4.730 H, Ethyl Alcohol < 10.1 10/09/24 20:10: Urine Color Yellow, Urine Clarity Cloudy, Urine pH 5.0, Ur Specific [place] 1.020, Urine Protein 30 H, Urine Glucose (UA) 1000 H, Urine Ketones Negative, Urine Occult Blood 150 H, Urine Nitrite Negative, Urine Bilirubin Negative, Urine Urobilinogen 1 H, Ur Leukocyte Esterase 100 H, Urine RBC 10-25 SEEN, Urine WBC >100 SEEN, Ur Squamous Epith Cells 0-5 SEEN, Ur Transition Epith Cell 0-5 SEEN, Amorphous Sediment 1+, Urine Bacteria 4+, Urine Mucus 0 SEEN, Urine Opiates Screen NEGATIVE, U Buprenorphine Qual NEGATIVE, Ur Oxycodone Screen NEGATIVE, Urine Methadone Screen NEGATIVE, Urine Fentanyl Screen NEGATIVE, Ur Barbiturates Screen NEGATIVE, Ur Phencyclidine Scrn NEGATIVE, Ur Amphetamines Screen NEGATIVE, U Benzodiazepines Scrn NEGATIVE, Urine Cocaine Screen NEGATIVE, U Cannabinoids Screen NEGATIVE 10/09/24 23:50: POC Glucose 148 H 10/10/24 05:21: WBC 5.3, RBC 4.27, Hgb 12.3, Hct 37.6, MCV 88.1, MCH 28.8, MCHC 32.7, RDW Std Deviation 51.4 H, RDW Coeff of Bebo 15.9 H, Plt Count 100 L, MPV 11.7, Immature Gran % (Auto) 0.200, Neut % (Auto) 65.4, Lymph % (Auto) 19.6, Larue % (Auto) 9.1, Eos % (Auto) 5.1 H, Baso % (Auto) 0.6, Absolute Neuts (auto) 3.4, Absolute Lymphs (auto) 1.03, Nucleated RBC % 0, Sodium Cancelled 10/10/24 05:21: Sodium 138, Potassium Cancelled 10/10/24 05:21: Potassium 4.3, Chloride Cancelled 10/10/24 05:21: Chloride 106, Carbon Dioxide Cancelled 10/10/24 05:21: Carbon Dioxide 19.0 L, Anion Gap Cancelled 10/10/24 05:21: Anion Gap 13, BUN Cancelled 10/10/24 05:21: BUN 20 H, Creatinine Cancelled 10/10/24 05:21: Creatinine 0.78, Estim Creat Clear Calc 88.83, Est GFR (MDRD) Non-Af Cancelled 10/10/24 05:21: Est GFR (MDRD) Non-Af 81, BUN/Creatinine Ratio Cancelled 10/10/24 05:21: BUN/Creatinine Ratio 25.4 H, Glucose Cancelled 10/10/24 05:21: Glucose 151 H, Calcium Cancelled 10/10/24 05:21: Calcium 8.9, Phosphorus 3.3, Total Bilirubin Cancelled 10/10/24 05:21: Total Bilirubin 0.68, AST Cancelled 10/10/24 05:21: AST 37 H, ALT Cancelled 10/10/24 05:21: ALT 23, Alkaline Phosphatase Cancelled 10/10/24 05:21: Alkaline Phosphatase 122 H, Total Protein Cancelled 10/10/24 05:21: Total Protein 7.2, Albumin Cancelled 10/10/24 05:21: Albumin 3.5, Globulin Cancelled 10/10/24 05:21: Globulin 3.7, Albumin/Globulin Ratio Cancelled 10/10/24 05:21: Albumin/Globulin Ratio 1.0, Triglycerides 82, Cholesterol 103, LDL Cholesterol, Calc 31, VLDL Cholesterol 16, HDL Cholesterol 56, Cholesterol/HDL Ratio 1.84, Serum Folate 7.20 10/10/24 05:45: POC Glucose 159 H Radiography Diagnostic Testing: Radiology Impression Foot X-Ray 10/09/24 17:28 IMPRESSION: Status post internal fixation of calcaneal fracture. Mild degenerative arthritic changes. Soft tissue swelling. Reading Location: [facility] [place] Lower Extremity CT 10/09/24 22:15 IMPRESSION: Lateral calcaneal plate with screws and cannulated screw appears intact. No fracture identified. Nodislocation. Moderate posterior subtalar and mild anterior subtalar joint osteoarthrosis. No osseous destruction or periosteal reaction identified. There is marked soft tissue subcutaneous swelling, edema which appears greater anterior, medial andposteriorly, clinically correlate with numerous soft tissue calcifications that can be seen with venous stasis. No definite deep fascial or muscular edema identified by CT. No soft tissue gas identified. Findings discussed by myself by phone with Dr. Hernandez at 2:20 a.m. 10/10/2024 Reading Location: [id number] Physical Exam Narrative Seen and examined. Patient is talking nonstop. As per nursing staff she has been talking for last 3 days, sleeping less, hypomania condition. She is not directable and does not reply to the ask questions. Physical exam General: Alert, unclear about the orientation. HEENT: Atraumatic, PERRLA, EOMI, Normocephalic. Oral: No Gingival or Mucosal Lesions/ Ulcerations Neck: Supple, No JVD, Negative Carotid Bruits Chest wall/Lungs: Air entry diminished in bilateral lung bases. No crepitation/rhonchi Cardiovascular: Regular rate and rhythm, Normal S1,S2, No M/G/R Abdomen: Bowel Sounds Present, Soft, Non Tender, Non-Distended : No dysuria. No renal angle tenderness. No suprapubic tenderness. Extremities: Bilateral lower extremity with lymphedema, chronic capillary Refill Less than 3 Seconds Skin: Purulent stain on the sheet probably from left leg. Intertriginous dermatitis/candidiasis Musculoskeletal: No Tenderness to Palpation of Joints or Extremities Neurological: Cranial nerves II-XII grossly intact, DTR 2+/4. No acute focal neurological deficit. Psych/Mental Status: Hypomania and behavior, talking nonstop. Does not follow command. 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 She had pinsplaced in her left foot approximately 15 years ago after she had fracture in the heel. She cannot bear weight 1. Severe left heel pain with history of left talar fracture about 15 years ago: CT of lower extremity reviewed and shows lateral calcaneal plate with screws are intact. No fracture identified. No dislocation. 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 No osseous destruction but marked soft tissue subcutaneous swelling edema appears greater anterior medial and posteriorly. No definite deep fascial or muscular edema. No soft tissue gas. Will consult customer account representative for further opinion. PT and OT and pain control. CRP and ESR elevated. 2. Abnormal UA, unclear about UTI: Patient cannot give history about lower urinary tract symptoms as she is in hypomania state. UA shows LE 100 but nitrite negative, WBC more than 100 cells, RBC 10-25, squamous epithelial 0-5 cells. Bacteria 4+. Empirically on IV ceftriaxone. Prelim urine culture shows GNR 80,000?100,000 colonies 3 bipolar 1 disorder; in hypomania episode: Patient is talking nonstop, not directable, cannot answer question, circumstantial and tangential thoughts and behavioral disorder: Patient on Seroquel. Clonazepam added. Morbid Obesity; with a BMI of 49.2 kg/m2 this admisson - Weight loss recommended DM-2; of unknown control on dulaglutide weekly, empagliflozin daily, insulin glargine 40 units SQ twice daily and insulin lispro 3 times daily AC: Accu-Chek before meals and at bedtime with Humalog sliding scale coverage and hypoglycemia protocol. Glucose is 165, 159 acceptable range. Essential hypertension; on lisinopril - Resume lisinopril as before. BP elevated 149/89. Hyperlipidemia; on atorvastatin - Continue statin TSH 4.73 upper limit normal. B12 379. Folic acid normal. Chronic history of seizures; on lamotrigine - Current treatment to be resumed plus give as needed IV lorazepam for breakthrough seizure activity. Former tobacco abuse times ~45 years (quit ~2016) DVT prophylaxis - Enoxaparin 40 mg sq BID. Patient noted to have moderate thrombocytopenia of 106K present on admission with plan to discontinue this agent if platelet count drops below 100K. Full code Microbiology Past 72 Hours 10/09/24 20:10 Urine, Clean Catch Urine Culture - Preliminary Gram negative jamaal Laboratory Results 10/09/24 18:55: WBC 6.8, RBC 4.67, Hgb 13.5, Hct 40.8, MCV 87.4, MCH 28.9, MCHC 33.1, RDW Std Deviation 51.0 H, RDW Coeff of Bebo 15.9 H, Plt Count 106 L, MPV 11.8, Immature Gran % (Auto) 0.400, Neut % (Auto) 72.1 H, Lymph % (Auto) 16.3 L, Larue % (Auto) 8.3, Eos % (Auto) 2.5, Baso % (Auto) 0.4, Absolute Neuts (auto) 4.9, Absolute Lymphs (auto) 1.11, Nucleated RBC % 0, ESR 49 H, Sodium 138, Potassium 4.5, Chloride 106, Carbon Dioxide 21.0, Anion Gap 11, BUN 23 H, Creatinine 0.88, Estim Creat Clear Calc 81.27, Est GFR (MDRD) Non-Af 70, BUN/Creatinine Ratio 26.6 H, Glucose 138H, Hemoglobin A1c 7.2 H, Calcium 9.7, Magnesium 2.1, Total Bilirubin 0.67, AST 40 H, ALT 23, Alkaline Phosphatase 135 H, C-React Prot Ext Range 5.92 H, Total Protein 8.4, Albumin 3.8, Globulin 4.6 H,Albumin/Globulin Ratio 0.8 L, Vitamin B12 379, TSH 4.730 H, Ethyl Alcohol < 10.1 10/09/24 20:10: Urine Color Yellow, Urine Clarity Cloudy, Urine pH 5.0, Ur Specific B[place]el 1.020, Urine Protein 30 H, Urine Glucose (UA) 1000 H, Urine Ketones Negative, Urine Occult Blood 150 H, Urine Nitrite Negative, Urine Bilirubin Negative, Urine Urobilinogen 1 H, Ur Leukocyte Esterase 100 H, Urine RBC 10-25 SEEN, Urine WBC >100 SEEN, Ur Squamous Epith Cells 0-5 SEEN, Ur Transition Epith Cell 0-5 SEEN, Amorphous Sediment 1+, Urine Bacteria 4+, Urine Mucus 0 SEEN, Urine Opiates Screen NEGATIVE, U Buprenorphine Qual NEGATIVE, Ur Oxycodone Screen NEGATIVE, Urine Methadone Screen NEGATIVE, Urine Fentanyl Screen NEGATIVE, Ur Barbiturates Screen NEGATIVE, Ur Phencyclidine Scrn NEGATIVE, Ur Amphetamines Screen NEGATIVE, U Benzodiazepines Scrn NEGATIVE, Urine Cocaine Screen NEGATIVE, U Cannabinoids Screen NEGATIVE 10/09/24 23:50: POC Glucose 148 H 10/10/24 05:21: WBC 5.3, RBC 4.27, Hgb 12.3, Hct 37.6, MCV 88.1, MCH 28.8, MCHC 32.7, RDW Std Deviation 51.4 H, RDW Coeff of Bebo 15.9 H, Plt Count 100 L, MPV 11.7, Immature Gran % (Auto) 0.200, Neut % (Auto) 65.4, Lymph % (Auto) 19.6, Larue % (Auto) 9.1, Eos % (Auto) 5.1 H, Baso % (Auto) 0.6, Absolute Neuts (auto) 3.4, Absolute Lymphs (auto) 1.03, Nucleated RBC % 0, Sodium Cancelled 10/10/24 05:21: Sodium 138, Potassium Cancelled 10/10/24 05:21: Potassium 4.3, Chloride Cancelled 10/10/24 05:21: Chloride 106, Carbon Dioxide Cancelled 10/10/24 05:21: Carbon Dioxide 19.0 L, Anion Gap Cancelled 10/10/24 05:21: Anion Gap 13, BUN Cancelled 10/10/24 05:21: BUN 20 H, Creatinine Cancelled 10/10/24 05:21: Creatinine 0.78, Estim Creat Clear Calc 88.83, Est GFR (MDRD) Non-Af Cancelled 10/10/24 05:21: Est GFR (MDRD) Non-Af 81, BUN/Creatinine Ratio Cancelled 10/10/24 05:21: BUN/Creatinine Ratio 25.4 H, Glucose Cancelled 10/10/24 05:21: Glucose 151 H, Calcium Cancelled 10/10/24 05:21: Calcium 8.9, Phosphorus 3.3, Total Bilirubin Cancelled 10/10/24 05:21: Total Bilirubin 0.68, AST Cancelled 10/10/24 05:21: AST 37 H, ALT Cancelled 10/10/24 05:21: ALT 23, Alkaline Phosphatase Cancelled 10/10/24 05:21: Alkaline Phosphatase 122 H, Total Protein Cancelled 10/10/24 05:21: Total Protein 7.2, Albumin Cancelled 10/10/24 05:21: Albumin 3.5, Globulin Cancelled 10/10/24 05:21: Globulin 3.7, Albumin/Globulin Ratio Cancelled 10/10/24 05:21: Albumin/Globulin Ratio 1.0, Triglycerides 82, Cholesterol 103, LDL Cholesterol, Calc 31, VLDL Cholesterol 16, HDL Cholesterol 56, Cholesterol/HDL Ratio 1.84, Serum Folate 7.20 10/10/24 05:45: POC Glucose 159 H 10/10/24 11:56: POC Glucose 165 H Charges/Coding Visit Charges Inpatient E&M: 95831 Subs Hosp L2 10/10/24 9077 Cosigner Signature (if applicable): CC: ~ Signed ADDENDUM by Dr. Tyrell Page MD on 10/10/24 at 1649 Addendum Patient was seen and examined in afternoon about 4 PM. She is having visual hallucination and talking to invisible person, Cat Wheeler, agitated, standingup on the window. Disorganized behavior and apparel and appearance Seroquel dose increased to 400 mg twice daily. Clonazepam changed to 0.5 mg Q6 hourly as needed foragitation and Phenergan 12.5 mg IM every 6 hours as needed for agitation. Patient has acute psychosis episode/manic episode. I do not think it is exacerbating medical condition. Patient is medically cleared for crisis management to evaluate and probably will need inpatient psych unit facility transfer 10/10/24 1649 Cosigner Signature (if applicable): cc: ~* Signed [facility]05-07-2025 History and physical note Author Missael Lomeli [facility] Note Date/Time October 10, 2024 6:53am [facility] Medical Records Department [address] [facility] [place] [address] H&P Exam - Hospitalist 10/09/242118 MR#: [id number] Acct: [id number] Name: VIDA NINA Rep #:[id number] : 1950 73 From: Missael Joiner DO PCP: Dr. Shayna Malhotra MD Status:ADM IN [id number] - General General Date of Admission: 10/09/24 Date of Service: 10/09/24 Chief Complaint: Left Heel Pain, Poor Hygiene and Unable to Care for Herself. HPI Narrative VIDA NINA, is a 73 F with a past medical history of essential hypertension; on lisinopril, hyperlipidemia; on atorvastatin, morbid obesity; with a BMI of 49.2 this admission, former tobacco abuse times ~45 years (quit ~2016), DM-2; ofunknown control on dulaglutide weekly, empagliflozin daily, insulin glargine 40 units SQ twice daily and insulin lispro 3 times daily AC, history of DVT; not onanticoagulation, history of seizures; on lamotrigine, bipolar 1 disorder; with panic attacks on quetiapine and clonazepam twice daily, history of vitamin D deficiency; on ergocalciferol, history of calcaneal fracture of the Left foot; s/p ORIF (~2009) and frequent UTIs who is currently residing in assisted living at [facility] presents to [facility] ER complaining of worsening Left heel pain with patient notably having poor hygiene and unable to care for herself. Ms. Nina reports her acute symptoms began ~2 weeks prior to admission with increasing pain from her Left heel. She states the pain is severe and she feelslike she is, having a baby out of her Left heel. She states her pain is made worse with weightbearing, walking and palpation and she speculated that she might have a severe case of plantar fasciitis. She states that on 2024 she underwent x-rays after being seen by Dr. Shayna Malhotra with final results not available. To further complicate matters the patient's son, who usually helps care for her, is unable to help her currently because he is apparently incarcerated so she has not showered in several (5) days. She admitsto darkened foul-smelling urine over the past few days. She was noted to have excoriated skin folds and extremely poor hygiene with ASSOCIATE SOFTWARE DEVELOPER having social work consulted and patient felt not to be able to take care of herself and assisted living she denies recent traumatic injury, increasing redness or significant swelling of the Left foot. There was also no report of fever, chills, nausea, vomiting, diarrhea, constipation, abdominal pain, chest pain, palpitations, heart racing, shortness of breath, headache or rash. In the ER she was noted tohave a urinalysis grossly positive for Acute Cystitis; with microscopic hematuria complicated by Neuropathic Pain of the Left heel and Chronically Poor Hygiene with patient Unable to Care for Herself at assisted living so she was then admitted to the general medical floor for ongoing care for a stay that is expected to extend beyond 2 midnights. [facility] Medical History Obesity Anxiety Cancer Anxiety Diabetes Former smoker Hypertension DVT (deep venous thrombosis) Bipolar 1 disorder Hyperlipidemia Vitamin D deficiency History of seizures history of broken heel left foot History of recurrent UTIs Home Medications ?Medication ?Instructions ?Recorded ?Last Taken ?Type lactobacillus combination no.9 4 4,000 mmu cells PO DA SHIRA 06/25/20 Unknown History billion cell capsule (Adult 50 Plus Probiotic) acetaminophen 325 mg tablet 650 mg PO Q4H PRN PRN Pain , fever 07/30/21 Unknown History (Tylenol) guaifenesin 100 mg/5 mL oral liquid 200 mg PO Q4H PRN cough 07/30/21 Unknown History ergocalciferol (vitamin D2) 1,250 50,000 unit PO Q14D suuplement 09/20/21 Unknown History mcg (50,000 unit) capsule triamcinolone acetonide 0.1 % 1 applic topical Q12H IA N PRN Rash 09/20/21 Unknown History topical cream insulin lispro 100 unit/mL See Protocol subcut TIDAC d iabetes 11/22/21 Unknown History subcutaneous pen (Humalog KwikPen (U-100) Insulin) lamotrigine 100 mg tablet 100 mg PO DAILY seizures Unknown History lisinopril 5 mg tablet 5 mg PO QDAY BP 11/22/21 Unk nown History miconazole nitrate 2 % topical 1 applic topical BID Ch ana m with 11/22/21 Unknown History powder primary doctor blood sugar diagnostic (FreeStyle 11/23/21 Unknown Hi story Lite Strips) blood-glucose meter (FreeStyle 11/23/21 Unknown Histo ry Lite Meter kit) lancets 28 gauge (FreeStyle 11/23/21 Unknown History Lancets) nystatin 100,000 unit/gram topical 1 applic topical TI D #0 grams 11/24/21 Unknown Rx powder ([facility]) quetiapine 100 mg tablet 300 mg (3 x 100 mg) PO BID # 0 tabs 11/24/21 Unknown Rx aspirin 81 mg chewable tablet 81 mg PO DAILY 05/06/22 Unknown History empagliflozin 10 mg tablet 10 mg PO DAILY 08/17/22 Unk nown History (Jardiance) atorvastatin 40 mg tablet 40 mg PO QPM 11/24/22 Unknow n History dulaglutide 3 mg/0.5 mL 3 mg subcut QWEEK 11/24/22 U nknown History subcutaneous pen injector (Trulicity) clonazepam 0.5 mg tablet 0.5 mg PO Q12H panic attack( s) 10/09/24 Unknown History insulin glargine 100 unit/mL (3 40 unit subcut BID 11/28 Unknown History mL) subcutaneous pen (Lantus Solostar U-100 Insulin) Allergy/AdvReac Type Severity Reaction Status Date / Time ciprofloxacin (From Cipro) Allergy Mild Anaphylaxis Verified 10/09/24 16:55 ciprofloxacin HCl (From Allergy Anaphylaxis Verified 10/09/24 16:55 Cipro) Iodinated Contrast Media Allergy Rash Verified 10/09/24 16:55 (Iodinated Contrast Media - IV Dye) paliperidone (From Invega) Allergy Rash Verified 10/09/24 16:55 Penicillins Allergy RASH AND Verified 10/09/24 16:55 ITCHING red (food color) Allergy Hives Verified 10/09/24 16:55 red dye Allergy Hives Verified 10/09/24 16:55 Sulfa (Sulfonamide Allergy RASH AND Verified 10/09/24 16:55 Antibiotics) ITCHING metformin AdvReac Nausea/Vom/ Verified 10/09/24 16:55 Diarrhea shellfish derived AdvReac Nausea/Vom/ Verified 10/09/24 16:55 Diarrhea Family History Mother Diabetes Hypertension Heart disease Thyroid disorder Father CVA (cerebral vascular accident) Diabetes Brother Parkinson disease Thyroid disorder Lupus Alcoholism Blood clots in brain Grandfather Heart disease Asthma Social History Smoking Status: Former smoker Tobacco: How many years used: 45 how long ago did patient quit smokin11/2016 substance use type: does not use what type of physical activity do you participate in: none ROS ROS Narrative Review of Systems: Constitutional: Patient denies fever or chills. Eyes: Patient denies changes in vision or discharge from eyes. ENT: Patient denies runny nose, sore throat or ear pain. Resp: Patient denies shortness of breath or cough. CV: Patient denies chest pain, palpitations, heart racing or lower extremity edema. GI: Patient denies abdominal pain, nausea, vomiting, diarrhea or constipation. : Patient denies dysuria but she was noted to have foul-smelling cloudy urine in ER. MSK: Patient admits to severe Left heel pain made worse with ambulation and palpation as per HPI. Skin: Patient has severe excoriations of her skin folds with evidence of chronically poor hygiene as per HPI. Psych: Patient has bipolar 1 disorder which is likely compromising her ability to care for self. She denies SI or HI. Neuro: Patient admits to neuropathic Left heel pain but she denies headache, paresthesias or focal neurologic deficits. Allergy: Patient denies lip swelling, tongue swelling or urticaria. Hematology: Patient denies easy bleeding or easy bruisability. Endocrinology: Patient denies polyuria, polydipsia, polyphagia or heat/cold intolerance. 14 point ROS otherwise negative save for positives noted above in HPI. Vital Signs Vital Signs Vital Signs: 10/09/24 16:55 Temperature 97.8 F Temperature Source Oral Pulse Rate 114 H Respiratory Rate 18 Blood Pressure 148/69 H Blood Pressure Mean 95 Pulse Ox 99 Oxygen Delivery Method Room Air Weight Weight: 295 lb 6.711 oz Body Mass Index (BMI) 49.1 Physical Exam Const alert, oriented x3 and no apparent distress Constitutional Narrative: Morbidly obese and very loquacious with flight of ideas. General Appearance: cooperative HEENT normocephalic, head/scalp atraumatic, hearing grossly normal bilaterally and moist oral mucous membranes Eyes PERRL, EOMs intact bilaterally and conjunctivae normal Neck no lymphadenopathy, supple and no JVD Resp normal respiratory effort, no retractions, no use of accessory muscles and clearto auscultation bilaterally Cardio regular rate and regular rhythm GI normal to inspection, nondistended, normoactive bowel sounds, soft to palpation,non-tender and non-distended GI Narrative: Morbidly obese. Extremity normal to inspection, full ROM and no clubbing, cyanosis or edema Extremity Narrative: Left heel tender palpation with no signs of acute infection or vascular compromise with good pulses throughout. Skin Skin Narrative: Patient has evidence of diffuse excoriations attributed to chronically poor hygiene. Neuro oriented x3, CN's II-XII intact bilaterally, moves all extremities and no focal motor deficits Sensorium / Orientation: awake, alert, oriented to person, oriented to place andoriented to time Speech: speech normal Psych Mood & Affect: anxious Results Medical Records Data Attestation: I reviewed the patient's medical records Lab / Micro Data Attestation: I reviewed the patient's lab results. 10/09/24 18:55 10/09/24 18:55 Labs: Laboratory Results - last 24 hr 10/09/24 18:55: WBC 6.8, RBC 4.67, Hgb 13.5, Hct 40.8, MCV 87.4, MCH 28.9, MCHC 33.1, RDW Std Deviation 51.0 H, RDW Coeff of Bebo 15.9 H, Plt Count 106 L, MPV 11.8, Immature Gran % (Auto) 0.400, Neut % (Auto) 72.1 H, Lymph % (Auto) 16.3 L,Larue % (Auto) 8.3, Eos % (Auto) 2.5, Baso % (Auto) 0.4, Absolute Neuts (auto) 4.9, Absolute Lymphs (auto) 1.11, Nucleated RBC % 0, Sodium 138, Potassium 4.5, Chloride 106, Carbon Dioxide 21.0, Anion Gap 11, BUN 23 H, Creatinine 0.88, Estim Creat Clear Calc 81.27, Est GFR (MDRD) Non-Af 70, BUN/Creatinine Ratio 26.6 H, Glucose 138 H, Calcium 9.7, Total Bilirubin 0.67, AST 40 H, ALT 23, Alkaline Phosphatase 135 H, Total Protein 8.4, Albumin 3.8, Globulin 4.6 H, Albumin/Globulin Ratio 0.8 L 10/09/24 20:10: Urine Color Yellow, Urine Clarity Cloudy, Urine pH 5.0, Ur Specific Boscobel 1.020, Urine Protein 30 H, Urine Glucose (UA) 1000 H, Urine Ketones Negative, Urine Occult Blood 150 H, Urine Nitrite Negative, Urine Bilirubin Negative, Urine Urobilinogen 1 H, Ur Leukocyte Esterase 100 H, Urine RBC 10-25 SEEN, Urine WBC >100 SEEN, Ur Squamous Epith Cells 0-5 SEEN, Ur Transition Epith Cell 0-5 SEEN, Amorphous Sediment 1+, Urine Bacteria 4+, Urine Mucus 0 SEEN Imaging Radiology Impression Foot X-Ray 10/09/24 17:28 IMPRESSION: Status post internal fixation of calcaneal fracture. Mild degenerative arthritic changes. Soft tissue swelling. Reading Location: [facility] Imaging Services [address] [place] [address] [id number] Extremity Lower without Contra MR#: [id number] Acct: [id number] Name: VIDA NINA Rep #: [id number] : 1950 F 73 From: Saul Sanchez MD PCP: Dr. Shayna Malhotra MD Status: ADM IN Study: Extremity Lower without Contra Date of Exam: 10/09/24 Exam# [id number] Ordering Dr: Missael Hernandez DO PROCEDURE: EXTREMITY LOWER WITHOUT CONTRA 10/09/2024 REASON FOR EXAM: SEVERE LEFT HEEL PAIN. TECHNIQUE: Axial CT images of the left ankle obtained without intravenous contrast. [place] Sagittal reconstruction series were provided. One or more dose reduction techniques were used (e.g., Automated exposure control, adjustment of the mA and/or kV according to patient size, use of iterative reconstruction technique RADIATION DOSE SUMMARY: CTDlvol: 15.35 mGy DLP: 534.14 mGycm COMPARISON: None available FINDINGS: Lateral calcaneal plate with screws and cannulated screw appears intact. No fracture identified. No dislocation. Moderate posterior subtalar and mild anterior subtalar joint osteoarthrosis. No osseous destruction or periosteal reaction identified. There is marked soft tissue subcutaneous swelling, edema which appears greater anterior, medial and posteriorly, clinically correlate with numerous soft tissue calcifications that can be seen with venous stasis. No definite deep fascial or muscular edema identified by CT. No soft tissue gas identified. CT/Extremity Lower without Contra IMPRESSION: Lateral calcaneal plate with screws and cannulated screw appears intact. No fracture identified. No dislocation. Moderate posterior subtalar and mild anterior subtalar joint osteoarthrosis. No osseous destruction or periosteal reaction identified. There is marked soft tissue subcutaneous swelling, edema which appears greater anterior, medial and posteriorly, clinically correlate with numerous soft tissue calcifications that can be seen with venous stasis. No definite deep fascial or muscular edema identified by CT. No soft tissue gas identified. Findings discussed by myself by phone with Dr. Hernandez at 2:20 a.m. 10/10/2024 Reading Location: [facility] CC: Dr. Missael Hernandez DO; Dr. 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 Acute Cystitis; with microscopic hematuria in the setting of known frequent UTIs - Admit to general medical floor. Continue empiric IV ceftriaxone and await culture and sensitivity data. Give acetaminophen as needed for [id number] (level 1- 5/10) pain or fever. Give oxycodone prn for severe (level 6-10/10) pain. 2. Neuropathic pain of the Left heel in the setting of a known history of calcaneal fracture of the Left foot; s/p ORIF (~2009) complicating #1 - We will start pregabalin 25 mg p.o. 3 times daily and titrate as needed to control symptoms. Checked CT scan of foot to evaluate for infection, inflammation or other acute abnormality that may not be apparent on x-ray with results noted above and with no signs of plantar fasciitis. 3. Chronically Poor Hygiene with patient Unable to Care for Herself at assistedliving after the recent incarceration of her son compounding #1 & #2 - PT/OT andCase Management will be consulted to see this patient on rounds in the a.m. for further recommendations regarding higher level of placement with help appreciated in advance. We will continue nystatin powder to affected areas 3 times daily. 4. Bipolar 1 disorder; with panic attacks on quetiapine and clonazepam twice daily adding to the medical complexity of #1 - #3 - Maintain home regimen. Check STEVEN, UDS, B12 and folate to further evaluate for other potential contributing factors to her declining functional status. 5. Morbid Obesity; with a BMI of 49.2 this admission adding to the burden of disease outlined from #1 - #4 - Weight loss will be recommended. Check TSH. This complicates her case and may hamper recovery. 6. DM-2; of unknown control on dulaglutide weekly, empagliflozin daily, insulinglargine 40 units SQ twice daily and insulin lispro 3 times daily AC - ADA diet. FSBS q. AC/HS plus SSI. Maintain current insulin glargine regimen at ~75% of previous dosing to prevent hypoglycemia. Hold empagliflozin and restart dulaglutide as outpatient. Check hemoglobin A1c to objectively evaluate qualityof diabetic control. 7. Essential hypertension; on lisinopril - Resume lisinopril as before. Give IV hydralazine as needed for systolic blood pressure greater than 160 mmHg. 8. Hyperlipidemia; on atorvastatin - Continue statin and check lipid profile. 9. History of seizures; on lamotrigine - Current treatment to be resumed plus give as needed IV lorazepam for breakthrough seizure activity. 10. Former tobacco abuse times ~45 years (quit ~2016) - Noted. 11. History of DVT; not on anticoagulation - Noted with no signs of recurrence at this time. 12. History of vitamin D deficiency; on ergocalciferol - Continue vitamin D supplementation. 13. DVT prophylaxis - Enoxaparin 40 mg sq BID. Patient noted to have moderate thrombocytopenia of 106K present on admission with plan to discontinue this agent if platelet count drops below 100K. Total time: Approximately (but not less than) 75 minutes. Charges/Coding Visit Charges Inpatient E&M: 40151 Init Hosp L3 10/10/24 0653 <Electronically signed by Missael Hernandez DO> Cosigner Signature (if applicable): CC: Dr. Missael Hernandez DO; Dr. Shayna Malhotra MD~ Signed [facility] Work Phone: [phone]) 673-186205-07-2025 History and physical note [facility] Medical Records Department [address] [place] [address] H&P Exam - Hospitalist 10/09/242118 MR#: [id number] Acct: [id number] Name: VIDA NINA Rep #:[id number] : 1950 73 From: Missael Joiner DO PCP: Dr. Shayna Malhotra MD Status:ADM IN [place] [facility] [id number] - General General Date of Admission: 10/09/24 Date of Service: 10/09/24 Chief Complaint: Left Heel Pain, Poor Hygiene and Unable to Care for Herself. KIRK NINA, is a 73 F with a past medical history of essential hypertension; on lisinopril, hyperlipidemia; on atorvastatin, morbid obesity; with a BMI of 49.2 this admission, former tobacco abusetimes ~45 years (quit ~2016), DM-2; ofunknown control on dulaglutide weekly, empagliflozin daily, insulin glargine 40 units SQ twice daily and insulin lispro 3 times daily AC, history of DVT; not onanticoagulation, history of seizures; on lamotrigine, bipolar 1 disorder; with panic attacks on quetiapine and clonazepam twice daily, history of vitamin D deficiency; on ergocalciferol, history of calcaneal fracture of the Left foot; s/p ORIF (~2009) and frequent UTIs who is currently residing in assisted living at [facility] presents to [facility] ER complaining of worsening Leftheel pain with patient notably having poor hygiene and unable to care for herself. Ms. Nina reports her acute symptoms began ~2 weeks prior to admission with increasing pain from her Left heel. She states the pain is severe and she feelslike she is, having a baby out of her Left heel. She states her pain is made worse with weightbearing, walking and palpation and she speculated that she might have a severe case of plantar fasciitis. She states that on Tuesday, 2024 she underwent x-rays after being seen by Dr. Shayna Malhotra with final results not available. To further complicate matters the patient's son, who usually helps care for her, is unable to help her currently because he is apparently incarcerated so she has not showered in several (5) days. She admitst o darkened foul-smelling urine over the past few days. She was noted to have excoriated skin folds and extremely poor hygiene with ASSOCIATE SOFTWARE DEVELOPER having social work consulted and patient felt not to be able to take care of herself and assisted living she denies recent traumatic injury, increasing redness orsignificant swelling of the Left foot. There was also no report of fever, chills, nausea, vomiting,diarrhea, constipation, abdominal pain, chest pain, palpitations, heart racing, shortness of breath, headache or rash. In the ER she was noted tohave a urinalysis grossly positive for Acute Cystitis;with microscopic hematuria complicated by Neuropathic Pain of the Left heel and Chronically Poor Hygiene with patient Unable to Care for Herself at assisted living so she was then admitted to the general medical floor for ongoing care for a stay that is expected to extend beyond 2 midnights. [facility] Medical History Obesity Anxiety Cancer Anxiety Diabetes Former smoker Hypertension DVT (deep venous thrombosis) Bipolar 1 disorder Hyperlipidemia Vitamin D deficiency History of seizures history of broken heel left foot History of recurrent UTIs Home Medications ?Medication ?Instructions ?Recorded ?Last Taken ?Type lactobacillus combination no.9 4 4,000 mmu cells PO DA SHIRA 06/25/20 Unknown History billion cell capsule (Adult 50 Plus Probiotic) acetaminophen 325 mg tablet 650 mg PO Q4H PRN PRN Pain , fever 07/30/21 Unknown History (Tylenol) guaifenesin 100 mg/5 mL oral liquid 200 mg PO Q4H PRN cough 07/30/21 Unknown History ergocalciferol (vitamin D2) 1,250 50,000 unit PO Q14D suuplement 09/20/21 Unknown History mcg (50,000 unit) capsule triamcinolone acetonide 0.1 % 1 applic topical Q12H IA N PRN Rash 09/20/21 Unknown History topical cream insulin lispro 100 unit/mL See Protocol subcut TIDAC d iabetes 11/22/21 Unknown History subcutaneous pen (Humalog KwikPen (U-100) Insulin) lamotrigine 100 mg tablet 100 mg PO DAILY seizures Unknown History lisinopril 5 mg tablet 5 mg PO QDAY BP 11/22/21 Unk nown History miconazole nitrate 2 % topical 1 applic topical BID Ch ana m with 11/22/21 Unknown History powder primary doctor blood sugar diagnostic (FreeStyle 11/23/21 Unknown Hi story Lite Strips) blood-glucose meter (FreeStyle 11/23/21 Unknown Histo ry Lite Meter kit) lancets 28 gauge (FreeStyle 11/23/21 Unknown History Lancets) nystatin 100,000 unit/gram topical 1 applic topical TI D #0 grams 11/24/21 Unknown Rx powder ([facility]) quetiapine 100 mg tablet 300 mg (3 x 100 mg) PO BID # 0 tabs 11/24/21 Unknown Rx aspirin 81 mg chewable tablet 81 mg PO DAILY 05/06/22 Unknown History empagliflozin 10 mg tablet 10 mg PO DAILY 08/17/22 Unk nown History (Jardiance) atorvastatin 40 mg tablet 40 mg PO QPM 11/24/22 Unknow n History dulaglutide 3 mg/0.5 mL 3 mg subcut QWEEK 11/24/22 U nknown History subcutaneous pen injector (Trulicity) clonazepam 0.5 mg tablet 0.5 mg PO Q12H panic attack( s) 10/09/24 Unknown History insulin glargine 100 unit/mL (3 40 unit subcut BID 11/28 Unknown History mL) subcutaneous pen (Lantus Solostar U-100 Insulin) Allergy/AdvReac Type Severity Reaction Status Date / Time ciprofloxacin (From Cipro) Allergy Mild Anaphylaxis Verified 10/09/24 16:55 ciprofloxacin HCl (From Allergy Anaphylaxis Verified 10/09/24 16:55 Cipro) Iodinated Contrast Media Allergy Rash Verified 10/09/24 16:55 (Iodinated Contrast Media - IV Dye) paliperidone (From Invega) Allergy Rash Verified 10/09/24 16:55 Penicillins Allergy RASH AND Verified 10/09/24 16:55 ITCHING red (food color) Allergy Hives Verified 10/09/24 16:55 red dye Allergy Hives Verified 10/09/24 16:55 Sulfa (Sulfonamide Allergy RASH AND Verified 10/09/24 16:55 Antibiotics) ITCHING metformin AdvReac Nausea/Vom/ Verified 10/09/24 16:55 Diarrhea shellfish derived AdvReac Nausea/Vom/ Verified 10/09/24 16:55 Diarrhea Family History Mother Diabetes Hypertension Heart disease Thyroid disorder Father CVA (cerebral vascular accident) Diabetes Brother Parkinson disease Thyroid disorder Lupus Alcoholism Blood clots in brain Grandfather Heart disease Asthma Social History Smoking Status: Former smoker Tobacco: How many years used: 45 how long ago did patient quit smokin11/2016 substance use type: does not use what type of physical activity do you participate in: none ROS ROS Narrative Review of Systems: Constitutional: Patient denies fever or chills. Eyes: Patient denies changes in vision or discharge from eyes. ENT: Patient denies runny nose, sore throat or ear pain. Resp: Patient denies shortness of breath or cough. CV: Patient denies chest pain, palpitations, heart racing or lower extremity edema. GI: Patient denies abdominal pain, nausea, vomiting, diarrhea or constipation. : Patient denies dysuria but she was noted to have foul-smelling cloudy urine in ER. MSK: Patient admits to severe Left heel pain made worse with ambulation and palpation as per HPI. Skin: Patient has severe excoriations of her skin folds with evidence of chronically poor hygiene as per HPI. Psych: Patient has bipolar 1 disorder which is likely compromising her ability to care for self. She denies SI or HI. Neuro: Patient admits to neuropathic Left heel pain but she denies headache, paresthesias or focal neurologic deficits. Allergy: Patient denies lip swelling, tongue swelling or urticaria. Hematology: Patient denies easy bleeding or easy bruisability. Endocrinology: Patient denies polyuria, polydipsia, polyphagia or heat/cold intolerance. 14 point ROS otherwise negative save for positives noted above in HPI. Vital Signs Vital Signs Vital Signs: 10/09/24 16:55 Temperature 97.8 F Temperature Source Oral Pulse Rate 114 H Respiratory Rate 18 Blood Pressure 148/69 H Blood Pressure Mean 95 Pulse Ox 99 Oxygen Delivery Method Room Air Weight Weight: 295 lb 6.711 oz Body Mass Index (BMI) 49.1 Physical Exam Const alert, oriented x3 and no apparent distress Constitutional Narrative: Morbidly obese and very loquacious with flight of ideas. General Appearance: cooperative HEENT normocephalic, head/scalp atraumatic, hearing grossly normal bilaterally and moist oral mucous membranes Eyes PERRL, EOMs intact bilaterally and conjunctivae normal Neck no lymphadenopathy, supple and no JVD Resp normal respiratory effort, no retractions, no use of accessory muscles and clearto auscultation bilaterally Cardio regular rate and regular rhythm GI normal to inspection, nondistended, normoactive bowel sounds, soft to palpation,non-tender and non-distended GI Narrative: Morbidly obese. Extremity normal to inspection, full ROM and no clubbing, cyanosis or edema Extremity Narrative: Left heel tender palpation with no signs of acute infection or vascular compromise with good pulsesthroughout. Skin Skin Narrative: Patient has evidence of diffuse excoriations attributed to chronically poor hygiene. Neuro oriented x3, CN's II-XII intact bilaterally, moves all extremities and no focal motor deficits Sensorium / Orientation: awake, alert, oriented to person, oriented to place andoriented to time Speech: speech normal Psych Mood & Affect: anxious Results Medical Records Data Attestation: I reviewed the patient's medical records Lab / Micro Data Attestation: I reviewed the patient's lab results. 10/09/24 18:55 10/09/24 18:55 Labs: Laboratory Results - last 24 hr 10/09/24 18:55: WBC 6.8, RBC 4.67, Hgb 13.5, Hct 40.8, MCV 87.4, MCH 28.9, MCHC 33.1, RDW Std Deviation 51.0 H, RDW Coeff of Bebo 15.9 H, Plt Count 106 L, MPV 11.8, Immature Gran % (Auto) 0.400, Neut % (Auto) 72.1 H, Lymph % (Auto) 16.3 L,Larue % (Auto) 8.3, Eos % (Auto) 2.5, Baso % (Auto) 0.4, Absolute Neuts (auto) 4.9, Absolute Lymphs (auto) 1.11, Nucleated RBC % 0, Sodium 138, Potassium 4.5, Chloride 106, Carbon Dioxide 21.0, Anion Gap 11, BUN 23 H, Creatinine 0.88, Estim Creat Clear Calc 81.27, Est GFR (MDRD) Non-Af 70, BUN/Creatinine Ratio 26.6 H, Glucose 138 H, Calcium 9.7, Total Bilirubin 0.67, AST 40 H, ALT 23, Alkaline Phosphatase 135 H, Total Protein 8.4, Albumin 3.8, Globulin 4.6 H, Albumin/Globulin Ratio 0.8 L 10/09/24 20:10: Urine Color Yellow, Urine Clarity Cloudy, Urine pH 5.0, Ur Specific [place]el 1.020, Urine Protein 30 H, Urine Glucose (UA) 1000 H, Urine Ketones Negative, Urine Occult Blood 150 H, Urine Nitrite Negative, Urine Bilirubin Negative, Urine Urobilinogen 1 H, Ur Leukocyte Esterase 100 H, Urine RBC 10-25 SEEN, Urine WBC >100 SEEN, Ur Squamous Epith Cells 0-5 SEEN, Ur Transition Epith Cell 0-5 SEEN, Amorphous Sediment 1+, Urine Bacteria 4+, Urine Mucus 0 SEEN Imaging Radiology Impression Foot X-Ray 10/09/24 17:28 IMPRESSION: Status post internal fixation of calcaneal fracture. Mild degenerative arthritic changes. Soft tissue swelling. Reading Location: [facility] Imaging Services [address] [place] [id number] Extremity Lower without Contra MR#: [id number] Acct: [id number] Name: VIDA NINA Rep #: [id number] : 1950 F 73 From: Saul Sanchez MD PCP: Dr. Shayna Malhotra MD Status: ADM IN Study: Extremity Lower without Contra Date of Exam: 10/09/24 Exam# [id number] Ordering Dr: Missael Hernandez DO PROCEDURE: EXTREMITY LOWER WITHOUT CONTRA 10/09/2024 REASON FOR EXAM: SEVERE LEFT HEEL PAIN. TECHNIQUE: Axial CT images of the left ankle obtained without intravenous contrast. Coronaland Sagittal reconstruction series were provided. One or more dose reduction techniques were used (e.g., Automated exposure control, adjustment of the mA and/or kV according to patient size, use of iterative reconstruction technique RADIATION DOSE SUMMARY: CTDlvol: 15.35 mGy DLP: 534.14 mGycm COMPARISON: None available FINDINGS: Lateral calcaneal plate with screws and cannulated screw appears intact. No fracture identified. Nodislocation. Moderate posterior subtalar and mild anterior subtalar joint osteoarthrosis. No osseous destruction or periosteal reaction identified. There is marked soft tissue subcutaneous swelling, edema which appears greater anterior, medial andposteriorly, clinically correlate with numerous soft tissue calcifications that can be seen with venous stasis. No definitedeep fascial or muscular edema identified by CT. No soft tissue gas identified. CT/Extremity Lower without Contra IMPRESSION: Lateral calcaneal plate with screws and cannulated screw appears intact. No fracture identified. Nodislocation. Moderate posterior subtalar and mild anterior subtalar joint osteoarthrosis. No osseous destruction or periosteal reaction identified. There is marked soft tissue subcutaneous swelling, edema which appears greater anterior, medial andposteriorly, clinically correlate with numerous soft tissue calcifications that can be seen with venous stasis. No definite deep fascial or muscular edema identified by CT. No soft tissue gas identified. Findings discussed by myself by phone with Dr. Hernandez at 2:20 a.m. 10/10/2024 Reading Location: [facility] CC: Dr. Missael Hernandez, ; Dr. 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 Acute Cystitis; with microscopic hematuria in the setting of known frequent UTIs - Admit to general medical floor. Continue empiric IV ceftriaxone and await culture and sensitivity data. Give acetaminophen as needed for [id number] (level 1-5/10) pain or fever. Give oxycodone prn for severe(level 6-10/10) pain. 2. Neuropathic pain of the Left heel in the setting of a known history of calcaneal fracture of theLeft foot; s/p ORIF (~2009) complicating #1 - We will start pregabalin 25 mg p.o. 3 times daily andtitrate as needed to control symptoms. Checked CT scan of foot to evaluate for infection, inflammation or other acute abnormality that may not be apparent on x-ray with results noted above and with no signs of plantar fasciitis. 3. Chronically Poor Hygiene with patient Unable to Care for Herself at [facility] after the recent incarceration of her son compounding #1 & #2 - PT/OT andCase Management will be consulted tosee this patient on rounds in the a.m. for further recommendations regarding higher level of placement with help appreciated in advance. We will continue nystatin powder to affected areas 3 times daily. 4. Bipolar 1 disorder; with panic attacks on quetiapine and clonazepam twice daily adding to the medical complexity of #1 - #3 - Maintain home regimen. Check STEVEN, UDS, B12 and folate to further evaluate for other potential contributing factors to her declining functional status. 5. Morbid Obesity; with a BMI of 49.2 this admission adding to the burden of disease outlined from #1 - #4 - Weight loss will be recommended. Check TSH. This complicates her case and may hamper recovery. 6. DM-2; of unknown control on dulaglutide weekly, empagliflozin daily, insulinglargine 40 units SQtwice daily and insulin lispro 3 times daily AC - ADA diet. FSBS q. AC/HS plus SSI. Maintain current insulin glargine regimen at ~75% of previous dosing to prevent hypoglycemia. Hold empagliflozin and restart dulaglutide as outpatient. Check hemoglobin A1c to objectively evaluate qualityof diabeticcontrol. 7. Essential hypertension; on lisinopril - Resume lisinopril as before. Give IV hydralazine as needed for systolic blood pressure greater than 160 mmHg. 8. Hyperlipidemia; on atorvastatin - Continue statin and check lipid profile. 9. History of seizures; on lamotrigine - Current treatment to be resumed plus give as needed IV lorazepam for breakthrough seizure activity. 10. Former tobacco abuse times ~45 years (quit ~2017) - Noted. 11. History of DVT; not on anticoagulation - Noted with no signs of recurrence at this time. 12. History of vitamin D deficiency; on ergocalciferol - Continue vitamin D supplementation. 13. DVT prophylaxis - Enoxaparin 40 mg sq BID. Patient noted to have moderate thrombocytopenia of 106K present on admission with plan to discontinue this agent if platelet count drops below 100K. Total time: Approximately (but not less than) 75 minutes. Charges/Coding Visit Charges Inpatient E&M: 95195 Init Hosp L3 10/10/24 0653 Cosigner Signature (if applicable): CC: Dr. Missael Hernandez DO; Dr. Shayna Malhotra MD~ Signed [facility]05-07-2025 Radiology Diagnostic study note [facility] Imaging Services [address] [place] [address] Extremity Lower without Contra MR#: [id number] Acct: [id number] Name: VIDA NINA Rep #: [id number] : 1950 F 73 From: Daniel Sanchez MD PCP: Dr. Shayna Malhotra MD Status: ADM IN Study:Extremity Lower without Contra Date of Exam: 10/09/24 Exam# [id number] Ordering Dr: Missael Piña DO PROCEDURE: EXTREMITY LOWER WITHOUT CONTRA 10/09/2024 REASON FOR EXAM: SEVERE LEFT HEEL PAIN. TECHNIQUE: Axial CT images of the left ankle obtained without intravenous contrast. Coronaland Sagittal reconstruction series were provided. One or more dose reduction techniques were used (e.g., Automated exposure control, adjustment of the mA and/or kV according to patient size, use of iterative reconstruction technique RADIATION DOSE SUMMARY: CTDlvol: 15.35 mGy DLP: 534.14 mGycm COMPARISON: None available FINDINGS: Lateral calcaneal plate with screws and cannulated screw appears intact. No fracture identified. Nodislocation. Moderate posterior subtalar and mild anterior subtalar joint osteoarthrosis. No osseous destruction or periosteal reaction identified. There is marked soft tissue subcutaneous swelling, edema which appears greater anterior, medial andposteriorly, clinically correlate with numerous soft tissue calcifications that can be seen with venous stasis. No definitedeep fascial or muscular edema identified by CT. No soft tissue gas identified. CT/Extremity Lower without Contra IMPRESSION: Lateral calcaneal plate with screws and cannulated screw appears intact. No fracture identified. Nodislocation. Moderate posterior subtalar and mild anterior subtalar joint osteoarthrosis. No osseous destruction or periosteal reaction identified. There is marked soft tissue subcutaneous swelling, edema which appears greater anterior, medial andposteriorly, clinically correlate with numerous soft tissue calcifications that can be seen with venous stasis. No definite deep fascial or muscular edema identified by CT. No soft tissue gas identified. Findings discussed by myself by phone with Dr. Hernandez at 2:20 a.m. 10/10/2024 Reading Location: [id number] CC: Dr. Missael Hernandez DO; Dr. Shayna Malhotra MD ~ Farm Equipment Technician: Signed [facility]05-06-2025 Discharge summary Author Dany Richardson [facility] Note Date/Time October 09, 2024 9:22pm [facility] Medical Records Department [address] [place] [address] Emergency Department Summary 10/09/24 MR#: [id number] Acct: [id number] Name: VIDA NINA Rep #:[id number] : 1950 73 From: Dany Richardson MD PCP: Dr. Shayna Malhotra MD Status:REG ER Location: ED HPI History of Present Illness Chief Complaint: Lower Extremity Injury Narrative Narrative: 73-year-old female states that she had pins placed in her left foot approximately 15 years ago [place] after breaking her heel. [facility] She states for the last 2 weeks she has been having increasing foot pain. She states that on Tuesday, probably of the last week, she had [facility]. She went and saw Dr. Shayna Malhotra on Tuesday, but he did not have the x-ray results. She states that she is having a lot of pain in her left heel that is worse with weightbearing and walking and palpation. She states that it feels as if she is having a baby out of her left heel. [facility] Medical History Obesity Anxiety Cancer Anxiety Diabetes Former smoker Hypertension DVT (deep venous thrombosis) Bipolar 1 disorder Hyperlipidemia Vitamin D deficiency History of seizures history of broken heel left foot History of recurrent UTIs Home Medications ?Medication ?Instructions ?Recorded ?Last Taken ?Type lactobacillus combination no.9 4 4,000 mmu cells PO DA SHIRA 06/25/20 Unknown Hi story billion cell capsule (Adult 50 Plus Probiotic) acetaminophen 325 mg tablet 650 mg PO Q4H PRN PRN Pain , fever 07/30/21 Unknown History (Tylenol) guaifenesin 100 mg/5 mL oral liquid 200 mg PO Q4H PRN cough 07/30/21 Unknown History ergocalciferol (vitamin D2) 1,250 50,000 unit PO Q14D suuplement 09/20/21 Unknown History mcg (50,000 unit) capsule triamcinolone acetonide 0.1 % 1 applic topical Q12H IA N PRN Rash 09/20/21 Unknown History topical cream insulin lispro 100 unit/mL See Protocol subcut TIDAC d iabetes 11/22/21 Unknown History subcutaneous pen (Humalog KwikPen (U-100) Insulin) lamotrigine 100 mg tablet 100 mg PO DAILY seizures Unknown History lisinopril 5 mg tablet 5 mg PO QDAY BP 11/22/21 Unk nown History miconazole nitrate 2 % topical 1 applic topical BID Ch ana m with 11/22/21 Unknown History powder primary doctor blood sugar diagnostic (FreeStyle 11/23/[address] [place] Lite Strips) blood-glucose meter (FreeStyle 11/23/21 Unknown Histo ry Lite Meter kit) lancets 28 gauge (FreeStyle 11/23/21 Unknown History Lancets) nystatin 100,000 unit/gram topical 1 applic topical TI D #0 grams 11/24/21 Unknown Rx powder ([facility]) quetiapine 100 mg tablet 300 mg (3 x 100 mg) PO BID # 0 tabs 11/24/21 Unknown Rx aspirin 81 mg chewable tablet 81 mg PO DAILY 05/06/22 Unknown History empagliflozin 10 mg tablet 10 mg PO DAILY 08/17/22 Unk nown History (Jardiance) atorvastatin 40 mg tablet 40 mg PO QPM 11/24/22 Unknow n History dulaglutide 3 mg/0.5 mL 3 mg subcut QWEEK 11/24/22 U nknown History subcutaneous pen injector (Trulicity) clonazepam 0.5 mg tablet 0.5 mg PO Q12H panic attack( s) 10/09/24 Unknown History insulin glargine 100 unit/mL (3 40 unit subcut BID 11/28 Unknown History mL) subcutaneous pen (Lantus Solostar U-100 Insulin) Allergy/AdvReac Type Severity Reaction Status Date / Time ciprofloxacin (From Cipro) Allergy Mild Anaphylaxis Verified 10/09/24 16:55 ciprofloxacin HCl (From Allergy Anaphylaxis Verified 10/09/24 16:55 Cipro) Iodinated Contrast Media Allergy Rash Verified 10/09/24 16:55 (Iodinated Contrast Media - IV Dye) paliperidone (From Invega) Allergy Rash Verified 10/09/24 16:55 Penicillins Allergy RASH AND Verified 10/09/24 16:55 ITCHING red (food color) Allergy Hives Verified 10/09/24 16:55 red dye Allergy Hives Verified 10/09/24 16:55 Sulfa (Sulfonamide Allergy RASH AND Verified 10/09/24 16:55 Antibiotics) ITCHING metformin AdvReac Nausea/Vom/ Verified 10/09/24 16:55 Diarrhea shellfish derived AdvReac Nausea/Vom/ Verified 10/09/24 16:55 Diarrhea Family History Mother Diabetes Hypertension Heart disease Thyroid disorder Father CVA (cerebral vascular accident) Diabetes Brother Parkinson disease Thyroid disorder Lupus Alcoholism Blood clots in brain Grandfather Heart disease Asthma Social History Smoking Status: Former smoker Tobacco: How many years used: 45 how long ago did patient quit smokin11/2016 substance use type: does not use what type of physical activity do you participate in: none ROS ROS ED ROS Narrative Review of systems positive for left heel pain. Worse with weightbearing, mild walking, and palpation. Denies other symptoms. EXAM Physical Exam Narrative Exam Narrative: Physical exam: Cardiovascular examination reveals mild tachycardia. Lungs clearto auscultation bilaterally. Abdomen soft, nontender, and obese without guarding or rebound. Inspection of the left foot reveals no evidence of erythema, no crepitance. Palpable dorsalis pedis pulse. Const Vital Signs: 10/09/24 16:55 Temperature 97.8 F Temperature Source Oral Pulse Rate 114 H Respiratory Rate 18 Blood Pressure 148/69 H Blood Pressure Mean 95 Pulse Ox 99 Oxygen Delivery Method Room Air MDM MDM MDM Narrative Medical decision making narrative: Differential diagnosis includes movement of hardware versus fracture versus contusion versus nonspecific foot pain. She was given 1 [place] for analgesia here, and x- rays were obtained of the left foot in 3 views. On my independent interpretation of her x-rays, there are postsurgical changes including hardware,but no evidence of a periprosthetic fracture, no noted loosening of hardware. There are arthritic changes as well. I reviewed the radiology report which confirms my independent interpretation. Initially my plan was to discharge her back to [facility], however I was approached by the RN, and was informed that the patient actually lives in assisted living at the facility, and her son who usually helps her is unable to care for her currently. She had excoriated skin folds as she has not been taking care of herself. RN had social work consulted. It was not felt that shecan take care of herself in assisted living so I will obtain basic screening laboratories and discussed patient with the hospitalist for at least observationversus admission for placement. In discussion with social work, it was felt that the patient requires preauthorization but could be placed on observation. In discussion with the patient herself, she states that she used to shower every other day, but has notshowered recently. Her son used to help her, and he was over at her house/independent living yesterday evening, but she now states that he is unableto help her because he is currently incarcerated. I reviewed her laboratory work and she has normal white count of 6.8 with hemoglobin 13.5, hematocrit 40.8, platelet count low at 106. When compared to prior laboratories, she has chronic thrombocytopenia. Review of her electrolytepanel shows BUN elevated at 23 with normal creatinine of 0.88, AST is slightly elevated at 40 which I think is nonspecific, as well as alk phos of 135, normal ALT of 23. Albumin chronically low, today 0.8. Her UA is pending. Regardless,given her inability to care for herself, I would we will discuss patient with the hospitalist for at least observation. Patient is in stable condition. Of note, I reviewed her urinalysis she was positive for leukocytes with microanalysis showing greater than 100 WBCs. She had 10-25 RBCs. Her urine wassent for culture. Although she has allergies to penicillin and ciprofloxacin aswell as sulfa, I reviewed her prior medications and in 2021 and on other times/visit she has received Rocephin. She was ordered Rocephin 1 g intravenously for UTI. Patient discussed with Dr. Bryant. Disposition is admit in stable condition. History & Record Review Discussion w/independent historian: Patient Additional record(s) reviewed:: Prior labs (Chronic thrombocytopenia) Lab Data Attestation: I reviewed the patient's lab results. Labs: Laboratory Results - last 24 hr 10/09/24 10/09/24 18:55 20:10 WBC 6.8 RBC 4.67 Hgb 13.5 Hct 40.8 MCV 87.4 MCH 28.9 MCHC 33.1 RDW Std Deviation 51.0 H RDW Coeff of Bebo 15.9 H Plt Count 106 L MPV 11.8 Immature Gran % (Auto) 0.400 Neut % (Auto) 72.1 H Lymph % (Auto) 16.3 L Larue % (Auto) 8.3 Eos % (Auto) 2.5 Baso % (Auto) 0.4 Absolute Neuts (auto) 4.9 Absolute Lymphs (auto) 1.11 Nucleated RBC % 0 Sodium 138 Potassium 4.5 Chloride 106 Carbon Dioxide 21.0 Anion Gap 11 BUN 23 H Creatinine 0.88 Estim Creat Clear Calc 81.27 Est GFR (MDRD) Non-Af 70 BUN/Creatinine Ratio 26.6 H Glucose 138 H Calcium 9.7 Total Bilirubin 0.67 AST 40 H ALT 23 Alkaline Phosphatase 135 H Total Protein 8.4 Albumin 3.8 Globulin 4.6 H Albumin/Globulin Ratio 0.8 L Urine Color Yellow Urine Clarity Cloudy Urine pH 5.0 Ur Specific Boscobel 1.020 Urine Protein 30 H Urine Glucose (UA) 1000 H Urine Ketones Negative Urine Occult Blood 150 H Urine Nitrite Negative Urine Bilirubin Negative Urine Urobilinogen 1 H Ur Leukocyte Esterase 100 H Urine RBC 10-25 SEEN Urine WBC >100 SEEN Ur Squamous Epith Cells 0-5 SEEN Ur Transition Epith Cell 0-5 SEEN Amorphous Sediment 1+ Urine Bacteria 4+ Urine Mucus 0 SEEN Radiography Diagnostic Testing: Clinical Impression(s) from Imaging Studies Foot X-Ray 10/09/24 17:28 IMPRESSION: Status post internal fixation of calcaneal fracture. Mild degenerative arthritic changes. Soft tissue swelling. Reading Location: [facility] Management Discussion w/another healthcare provider: Hospitalist Discharge Plan Dx/Rx/DC Orders Clinical Impression: Pain of left heel, Debility, Obesity, Unable to care for self, UTI (urinary tract infection) Disposition Disposition: Acute Care Hospital [facility] What to do if you have Problems For any increased pain, shortness of breath, bleeding, nausea or vomiting, chestpain, or any unexpected problems, contact your Primary Care Provider. Call [facility] ([phone]) or report to the closest Emergency Room. Call 911 if necessary. 10/09/242121 <Electronically signed by Dany Richardson MD> Cosigner Signature (if applicable): CC: Dr. Shayna Malhotra MD ~ Signed [facility] Work Phone: 1(235) 795-370105-06-2025 Discharge summary [facility] Medical Records Department [address] [place] [address] Emergency Department Summary 10/09/24 MR#: [id number] Acct: [id number] Name: VIDA NINA Rep #:[id number] : 1950 73 From: Dany Richardson MD PCP: Dr. Shayna Malhotra MD Status:REG ER Location: ED HPI History of Present Illness Chief Complaint: Lower Extremity Injury Narrative Narrative: 73-year-old female states that she had pins placed in her left foot approximately 15 years ago [place] after breaking her heel. [facility]. She states for the last 2 weeks she has been having increasing foot pain. She states that on Tuesday, probably of the last week, she had [facility]. She went and saw Dr. Shayna Malhotra on Tuesday, but he did not have thex-ray results. She states that she is having a lot of pain in her left heel that is worse with weightbearing and walking and palpation. She states that it feels as if she is having a baby out of her left heel. [facility] Medical History Obesity Anxiety Cancer Anxiety Diabetes Former smoker Hypertension DVT (deep venous thrombosis) Bipolar 1 disorder Hyperlipidemia Vitamin D deficiency History of seizures history of broken heel left foot History of recurrent UTIs Home Medications ?Medication ?Instructions ?Recorded ?Last Taken ?Type lactobacillus combination no.9 4 4,000 mmu cells PO DA SHIRA 06/25/20 Unknown Hi story billion cell capsule (Adult 50 Plus Probiotic) acetaminophen 325 mg tablet 650 mg PO Q4H PRN PRN Pain , fever 07/30/21 Unknown History (Tylenol) guaifenesin 100 mg/5 mL oral liquid 200 mg PO Q4H PRN cough 07/30/21 Unknown History ergocalciferol (vitamin D2) 1,250 50,000 unit PO Q14D suuplement 09/20/21 Unknown History mcg (50,000 unit) capsule triamcinolone acetonide 0.1 % 1 applic topical Q12H IA N PRN Rash 09/20/21 Unknown History topical cream insulin lispro 100 unit/mL See Protocol subcut TIDAC d iabetes 11/22/21 Unknown History subcutaneous pen (Humalog KwikPen (U-100) Insulin) lamotrigine 100 mg tablet 100 mg PO DAILY seizures Unknown History lisinopril 5 mg tablet 5 mg PO QDAY BP 11/22/21 Unk nown History miconazole nitrate 2 % topical 1 applic topical BID Ch ana m with 11/22/21 Unknown History powder primary doctor blood sugar diagnostic (FreeStyle 11/23/21 Unknown Hi story Lite Strips) blood-glucose meter (FreeStyle 11/23/21 Unknown Histo ry Lite Meter kit) lancets 28 gauge (FreeStyle 11/23/21 Unknown History Lancets) nystatin 100,000 unit/gram topical 1 applic topical TI D #0 grams 11/24/21 Unknown Rx powder ([facility]) quetiapine 100 mg tablet 300 mg (3 x 100 mg) PO BID # 0 tabs 11/24/21 Unknown Rx aspirin 81 mg chewable tablet 81 mg PO DAILY 05/06/22 Unknown History empagliflozin 10 mg tablet 10 mg PO DAILY 08/17/22 Unk nown History (Jardiance) atorvastatin 40 mg tablet 40 mg PO QPM 11/24/22 Unknow n History dulaglutide 3 mg/0.5 mL 3 mg subcut QWEEK 11/24/22 U nknown History subcutaneous pen injector (Trulicity) clonazepam 0.5 mg tablet 0.5 mg PO Q12H panic attack( s) 10/09/24 Unknown History insulin glargine 100 unit/mL (3 40 unit subcut BID 11/28 Unknown History mL) subcutaneous pen (Lantus Solostar U-100 Insulin) Allergy/AdvReac Type Severity Reaction Status Date / Time ciprofloxacin (From Cipro) Allergy Mild Anaphylaxis Verified 10/09/24 16:55 ciprofloxacin HCl (From Allergy Anaphylaxis Verified 10/09/24 16:55 Cipro) Iodinated Contrast Media Allergy Rash Verified 10/09/24 16:55 (Iodinated Contrast Media - IV Dye) paliperidone (From Invega) Allergy Rash Verified 10/09/24 16:55 Penicillins Allergy RASH AND Verified 10/09/24 16:55 ITCHING red (food color) Allergy Hives Verified 10/09/24 16:55 red dye Allergy Hives Verified 10/09/24 16:55 Sulfa (Sulfonamide Allergy RASH AND Verified 10/09/24 16:55 Antibiotics) ITCHING metformin AdvReac Nausea/Vom/ Verified 10/09/24 16:55 Diarrhea shellfish derived AdvReac Nausea/Vom/ Verified 10/09/24 16:55 Diarrhea Family History Mother Diabetes Hypertension Heart disease Thyroid disorder Father CVA (cerebral vascular accident) Diabetes Brother Parkinson disease Thyroid disorder Lupus Alcoholism Blood clots in brain Grandfather Heart disease Asthma Social History Smoking Status: Former smoker Tobacco: How many years used: 45 how long ago did patient quit smokin11/2016 substance use type: does not use what type of physical activity do you participate in: none ROS ROS ED ROS Narrative Review of systems positive for left heel pain. Worse with weightbearing, mild walking, and palpation. Denies other symptoms. EXAM Physical Exam Narrative Exam Narrative: Physical exam: Cardiovascular examination reveals mild tachycardia. Lungs clearto auscultation bilaterally. Abdomen soft, nontender, and obese without guarding or rebound. Inspection of the left footreveals no evidence of erythema, no crepitance. Palpable dorsalis pedis pulse. Const Vital Signs: 10/09/24 16:55 Temperature 97.8 F Temperature Source Oral Pulse Rate 114 H Respiratory Rate 18 Blood Pressure 148/69 H Blood Pressure Mean 95 Pulse Ox 99 Oxygen Delivery Method Room Air MDM MDM MDM Narrative Medical decision making narrative: Differential diagnosis includes movement of hardware versus fracture versus contusion versus nonspecific foot pain. She was given 1 [place] for analgesia here, and x-rays were obtained of the left footin 3 views. On my independent interpretation of her x-rays, there are postsurgical changes including hardware,but no evidence of a periprosthetic fracture, no noted loosening of hardware. There are arthritic changes as well. I reviewed the radiology report which confirms my independent interpretation. Initially my plan was to discharge her back to [facility], however I was approached by the RN, andwas informed that the patient actually lives in assisted living at the facility, and her son who usually helps her is unable to care for her currently. She had excoriated skin folds as she has not been taking care of herself. RN had social work consulted. It was not felt that shecan take care of herself in assisted living so I will obtain basic screening laboratories and discussed patient with the hospitalist for at least observationversus admission for placement. In discussion with social work, it was felt that the patient requires preauthorization but could beplaced on observation. In discussion with the patient herself, she states that she used to shower every other day, but has notshowered recently. Her son used to help her, and he was over at her house/ independent living yesterday evening, but she now states that he is unableto help her because he iscurrently incarcerated. I reviewed her laboratory work and she has normal white count of 6.8 with hemoglobin 13.5, hematocrit 40.8, platelet count low at 106. When compared to prior laboratories, she has chronic thrombocytopenia. Review of her electrolytepanel shows BUN elevated at 23 with normal creatinine of 0.88, AST is slightly elevated at 40 which I think is nonspecific, as well as alk phos of 135, normal ALT of 23. Albumin chronically low, today 0.8. Her UA is pending. Regardless,given her inability to care for herself, I would we will discuss patient with the hospitalist for at least observation. Patient is in stable condition. Of note, I reviewed her urinalysis she was positive for leukocytes with microanalysis showing greater than 100 WBCs. She had 10-25 RBCs. Her urine wassent for culture. Although she has allergies to penicillin and ciprofloxacin aswell as sulfa, I reviewed her prior medications and in 2021 and on other times/visit she has received Rocephin. She was ordered Rocephin 1 g intravenously for UTI. Patient discussed with Dr. Bryant. Disposition is admit in stable condition. History & Record Review Discussion w/independent historian: Patient Additional record(s) reviewed:: Prior labs (Chronic thrombocytopenia) Lab Data Attestation: I reviewed the patient's lab results. Labs: Laboratory Results - last 24 hr 10/09/24 10/09/24 18:55 20:10 WBC 6.8 RBC 4.67 Hgb 13.5 Hct 40.8 MCV 87.4 MCH 28.9 MCHC 33.1 RDW Std Deviation 51.0 H RDW Coeff of Bebo 15.9 H Plt Count 106 L MPV 11.8 Immature Gran % (Auto) 0.400 Neut % (Auto) 72.1 H Lymph % (Auto) 16.3 L Larue % (Auto) 8.3 Eos % (Auto) 2.5 Baso % (Auto) 0.4 Absolute Neuts (auto) 4.9 Absolute Lymphs (auto) 1.11 Nucleated RBC % 0 Sodium 138 Potassium 4.5 Chloride 106 Carbon Dioxide 21.0 Anion Gap 11 BUN 23 H Creatinine 0.88 Estim Creat Clear Calc 81.27 Est GFR (MDRD) Non-Af 70 BUN/Creatinine Ratio 26.6 H Glucose 138 H Calcium 9.7 Total Bilirubin 0.67 AST 40 H ALT 23 Alkaline Phosphatase 135 H Total Protein 8.4 Albumin 3.8 Globulin 4.6 H Albumin/Globulin Ratio 0.8 L Urine Color Yellow Urine Clarity Cloudy Urine pH 5.0 Ur Specific Boscobel 1.020 Urine Protein 30 H Urine Glucose (UA) 1000 H Urine Ketones Negative Urine Occult Blood 150 H Urine Nitrite Negative Urine Bilirubin Negative Urine Urobilinogen 1 H Ur Leukocyte Esterase 100 H Urine RBC 10-25 SEEN Urine WBC >100 SEEN Ur Squamous Epith Cells 0-5 SEEN Ur Transition Epith Cell 0-5 SEEN Amorphous Sediment 1+ Urine Bacteria 4+ Urine Mucus 0 SEEN Radiography Diagnostic Testing: Clinical Impression(s) from Imaging Studies Foot X-Ray 10/09/24 17:28 IMPRESSION: Status post internal fixation of calcaneal fracture. Mild degenerative arthritic changes. Soft tissue swelling. Reading Location: [facility] Management Discussion w/another healthcare provider: Hospitalist Discharge Plan Dx/Rx/DC Orders Clinical Impression: Pain of left heel, Debility, Obesity, Unable to care for self, UTI (urinary tract infection) Disposition Disposition: [facility] What to do if you have Problems For any increased pain, shortness of breath, bleeding, nausea or vomiting, chestpain, or any unexpected problems, contact your Primary Care Provider. Call [facility] ([phone]) or report tothe closest Emergency Room. Call 911 if necessary. 10/09/242121 Cosigner Signature (if applicable): CC: Dr. Shayna Malhotra MD ~ Signed [facility]05-06-2025 Radiology Diagnostic study note [facility] Imaging Services [address] [place] [address] Foot min 3 Views MR#: [id number] Acct: [id number] Name: VIDA NINA Rep #: [id number] : 1950 F 73 From: Katarina Jiménez MD PCP: Dr. Shayna Malhotra MD Status: [facility] ER Study:Foot min 3 Views Date of Exam: 11/28 Exam# [id number] Ordering Dr: Dany Richardson MD EXAM: LEFT FOOT, 3 VIEWS CLINICAL HISTORY: PAIN COMPARISON: NO RELEVANT PRIOR. TECHNIQUE: AP, LATERAL, AND OBLIQUE. FINDINGS: A compression plate and screws fixing an old fracture of the calcaneus. Degenerative changes of the talar calcaneal and talonavicular joint. Soft tissue swelling. RAD/Foot min 3 Views IMPRESSION: Status post internal fixation of calcaneal fracture. Mild degenerative arthritic changes. Soft tissue swelling. Reading Location: [facility] CC: Dr. Dany Richardson MD; Dr. Shayna Malhotra MD ~ Farm Equipment Technician: Signed [facility]01-29-2025 Evaluation note* Diagnosis Onset Date Resolution Status Admit Date Debility acute July 04, 2024 12:57pm Obesity acute July 04, 2024 12:57pm Lymphedema chronic July 04, 2024 12:57pm Type 1 diabetes mellitus chronic July 04, 2024 12:57pm Pain of left heel noneactive July 04, 2024 12:57pm Acute cystitis with hematuria acute October 09, 2024 9: 56pm Bipolar 1 disorder acute October 9:56pm Debility acute October 09, 2024 9:56pm Morbid obesity with BMI of 45.0-49.9, adult acute October 09, 2024 9 :56pm Neuropathic pain of foot acute October 09, 2024 9:56pm Obesity acute October 09, 2024 9:56pm Pain of left heel acute October 9:56pm Poor hygiene acute October 09 9:56pm Unable to care for self acute M ay 2024 9:56pm UTI (urinary tract infection) acute October 09, 2024 9: 56pm DM2 (diabetes mellitus, type 2) chronic October 09, 2024 9: 56pm [facility] Work Phone: 1(632) 860-105404-29-2022 NoteHNO ID: [id number] Author: Jennifer Cuevas MD Service: ? Author Type: Physician Type: Progress Notes Filed: 12/01/2021 8:04 AM Note Text: Gynecologic Oncology [facility] Follow up visit Date of service: 10/02/2021 PROBLEM/CC: Vida Nina presents for a post-op visit. SURGICAL PATHOLOGY [[id number]] Collected: 09/07/21 1104 Order Status: Completed Specimen: Tissue from UTERUS, CERVIX, BILATERAL FALLOPIAN TUBES AND BILATERAL OVARIES Updated: 09/11/21 1319 Case Report -- Surgical Pathology Report ? Case: [id number] ? Authorizing Provider: ?Jennifer Cuevas MD ? ? ?Collected: ? 09/07/2021 11:04 [...] A11 and A16 were reviewed at the [facility] gynecologic pathology consensus conference via telepathology on 09/09/20[address] Lupe Younger and Andra Franco agree with the diagnosis of acute salpingitis. ? Laboratory Developed Test (LDT) Disclaimer: Performance characteristics of immunohistochemical, immunofluorescent and chromogenic in-situ hybridization tests have been determined by the performing laboratory within [facility]?s [facility] and Laboratory Medicine [place] ([facility], [facility], [facility] or [facility]) in a manner consistent with CLIA requirements. [...] pT, pN, and ( (more content not included)...[facility]04-29-2022 History of Present illness Narrative* Jennifer Cuevas MD - 10/02/2021 1:00 PM EDT Gynecologic Oncology [facility] Follow up visit Date of service: 10/02/2021 PROBLEM/CC: Vida Nina presents for a post-op visit. SURGICAL PATHOLOGY [[id number]] Collected: 09/07/21 1104 Order Status: Completed Specimen: Tissue from UTERUS, CERVIX, BILATERAL FALLOPIAN TUBES AND BILATERAL OVARIES Updated: 09/11/21 1312 Case Report -- Surgical Pathology Report Case: [id number] Authorizing Provider: Jennifer Cuevas MD Collected: 09/07/2021 11:04 AM Ordering Location: [facility] Received: 09/07/2021 11:12 AM Pathologist: [...] A11 and A16 were reviewed at the [facility] gynecologic pathology consensus conference via telepathology on 09/09/20[address] Lupe Younger and Andra Franco agree with the diagnosis of acute salpingitis. Laboratory Developed Test (LDT) Disclaimer: Performance characteristics of immunohistochemical, immunofluorescent and chromogenic in-situ hybridization tests have been determined by the performing laboratory within [facility] s [facility] [place] ([facility], [facility], [facility] or [facility]) in a manner consistent with CLIA requirements. [...] (Chapter 1, 8th Ed.) it is the managingphysician s responsibility to establish the final pathologic [...] cm. The serosal surface is purple pink anddull with possible hemorrhagic powder henderson. The ectocervix [...] fibrous ovarian parenchyma with no lesions identified. Dehydrator Operator sections are submitted as follows: A1-anterior cervix [...] A 17-right ovary Gross examination performed at [facility], [address] [place] [address] CLIA#[id number] OLS September 08, 2021 10:33 AM Intraoperative Diagnosis -- A. UTERUS, CERVIX, BILATERAL FALLOPIAN TUBES AND BILATERAL OVARIES. Gross diagnosis: Uterus, cervix, bilateral fallopian tubes, bilateral ovaries- Endometrial tumor grossly invading greater than 50% into the uterine wall (AC) HPI: Vida Nina is a 70 year old female who recently had had a biopsy done with the result being grade 2 endometrioid endometrial cancer. Reports that she has been having post-menopausal bleeding for >1 month. She has pelvic pain withthis as well, and the pain started after the bleeding. At worst, she was passing clots and having to change a pad q 2-4 hours. She was seen in the ER in July for this and she was HD stable at this time, and pelvic ultrasound showed endometrial thickening and a cervical mass. She was seen by (gynecology) and had EMB with cervical biopsies performed which demonstrated FIGO grade 2 endometrial adenocarcinoma. She was then referred to medical oncology who ordered CT scans and CA 125. She says it has been many years since she has seen a director of guidance in public schools, maybe > 10 years. Reports normal pap [...] capsule Take 1 capsule by mouth once eachweek. QUEtiapine XR (SEROQUEL XR) 300 mg 24 [...] 5' 5 (1.651 m) Wt (!) 301 lb(136.5 kg) SpO2 98% BMI 50.09 kg/m GENERAL: Appears well. She is here with a caregiver from the facility where she lives. Her incisions have healed well. Abdomen non-tender. Tung Nut Grower for exam: Sherrie RESULTS: 07/26/21: ULTRASOUND The [...] without Cont on 08-07-2021 Abdomen/Pelvis without Cont [facility] Imaging Services [address] [place] [address] Abdomen/Pelvis without Cont MR#: [id number] Acct: [id number] Name: VIDA NINA Breann Rep #: [id number] : 1950 F 70 From: Power Lopez MD PCP: Dr. Shayna Malhotra MD Status: REG CLI Study: Abdomen/Pelvis without Cont Date of Exam: 09/25 Exam# [id number] Ordering Dr: Saad Villagomez MD STUDY: CT [...] for this CT. COMPARISON: Ultrasound from 07/26/2021. FINDINGS: The visualized lung bases are unremarkable. The visualized portions of the heart are within normal limits. There is decreased attenuation of the liver consistent with steatosis. There are multiple gallstones. Normal spleen. Normal pancreas. There is a 3.79 cm circumscribed, smooth, low attenuation left adrenal mass, consistent with an adrenal adenoma. ACR White Paper guidelines (Godoy-Parrish, et al. JACR 2017; 14(8):8344-6738) suggest no imaging follow-up is necessary. ACR White Paper guidelines (Godoy-Parrish, et al. JACR 2017; 14(8):7237-3648) suggest no imaging follow-up is necessary. Consider [...] degenerative changes of the visualized lumbar spine. CT/Abdomen/Pelvis without Cont IMPRESSION: Fatty liver, no [...] deemed medically necessary. Reviewed prior records from [facility] and Dr. Villagomez (medical oncologist) office. Requested images from CT A/P and ultrasound to be uploaded for review. Noted elevated CA 125. Plan to proceed with surgery in September. Will need preoperative anesthesia appointment. Contact information for Jose Rafael Resendiz: nurse line [phone]; front desk auxiliary [phone]. Documentation from my notes of previous visit [...] arrange referral to radiation treatment center in [place], [place] five minutes from where she lives. [...] By signing my name below, I, Charley Martinez, attest that this documentation has been prepared under the direction and in the presence of Jennifer Cuevas MD. Electronically signed:Frannie Cho, October 04, 2021 6:40 AM I agree with the Chief Complaint, ROS, and Past Histories independently gathered by the clinical office support and the remaining scribed note accurately describes my personal service to the patient. documented in this encounterCleveland [id number] Nurse Note* Moriah Aldridge RN - 10/02/2021 12:50 PM EDT Patient [facility] amb [facility]&Ox[facility] in [facility] for post op visit. Patient admits to pain in abd and lower back resolved since surgery. Pt denies any new concerns, today. Pt here with Marguerite, friend. Enc and support provided. Moriah Aldridge RN [facility] Miscellaneous Notes* Telephone Encounter - Jeffrey Ferris - 09/21/2021 12:10 PM EDT Spoke to Nurse Bernadine from [facility] stated that the patient is in the hospital and she will call when the patient comes out. So 09/22/21 appt in this office with Dr. Cuevas has been cancelled. Jeffrey Ferris 09/21/21 documented in this encounterUniversity [facility]04-07-2022 Miscellaneous Notes* Telephone Encounter - Taniya Balderas APRN.CNP - 09/10/2021 8:25 AM EDT Called [facility] left message on nurse line to call [...] to. meds that are susceptible are iv. longterm can recheck urine if still + then would need to get ID involved verbal instructions per Dr julieth Balderas APRN.MICHELLE documented in this encounterUniversity Hospitals [facility]age [facility] Center04-06-2022 Miscellaneous Notes* Telephone Encounter - Summer Turcios RN - 09/09/2021 2:50 PM EDT Franklin from [facility] returned call to this RN. Reviewed message from Sebas Cuevas MD. Instructed Franklin to monitor patient's lap site and call office if worsens or if any other complications arise. Franklin verbalized understanding. Summer Turcios RN * Telephone Encounter - Summer Turcios RN - 09/09/2021 2:14 PM EDT Per Sebas Cuevas MD: Nothing else to do. ( message sent to this RN via confidential e-mail) Attempted to call Franklin at [facility] to review above message, no answer. Left message on voicemailto return call. Summer Turcios RN * Telephone Encounter - Summer Turcios RN - 09/09/2021 1:58 PM EDT Franklin, skilled nursing facilities professional at [facility] called stated, one of patient's lap sites opened a little and a scant amount of blood was noted. Franklin stated they reinforced the surgical glue/lap site with steri-strips. No other issues at this time. Per Franklin, patient continues with some tenderness, taking Tylenol and Mortin. Stated Tramadol should be delivered from the pharmacy today. He is calling to make sure there is nothing additional you would like them to do, please advise. Thanks! (this message sent to Sebas Cuevas MD via confidential e-mail). Summer Turcios RN documented in this encounterUniversity Hospitals [facility]age [facility] Center04-05-2022 NoteHNO ID: [id number] Author: Sam Naidu DO Service: Gynecology Oncology [...] kg (284 lb) Height: 165.1 cm (5' 5) I/O: Date 09/07/21 0700 - 09/08/21 0659 Shift 5404-0187 2796-9909 3089-2313 24 Hour Total PO 360 360 PO 360 360 IV 9533 851 3353 Volume (mL) (ceFAZolin 3 g in D5W 100 mL (ANCEF)) 100 100 Volume (mL) (NaCl 0.9% iv infusion) 500 500 Volume (mL) (lactated ringers iv infusion) 1300 1300 Volume (mL) (lactated ringers iv infusion) 300 300 Shift Total 3738 871 0996 Urine 1000 1000 Void (ml) 1000 1000 [...] 0.70 GLUC 303* CA 9.2 Recent Labs 09/07/21205209/07/21 1653 09/07/21 1255 09/07/21 0704 PCGLUCOSE 306* [...] Prophylaxis/Anticoagulants Active VTE Risk Category Order: 09/07/21 1545 VTE RISK CATEGORY: SURGICAL HIGH RISK (ME,AK) Active VTE Medication Orders: Anticoagulant AND Antiplatelet Medications (From admission, onward) Start Dose Route Frequency Last Action Ordered Stop 09/08/21 0900 enoxaparin 40 mg injection (LOVENOX) (Surgical Risk Categories) 40 mg SUBCUTANEOUS EVERY 24 HOURS Ordered 09/07/21 1542 -- Active VTE Prophylaxis Orders: 09/07/21 1545 PNEUMATIC COMPRESSION STOCKINGS (ME,AK) 09/07/21 154 ACTIVITY - MOBILIZE PATIENT ([place], [place]) VTE Prophylaxis: VTE prophylaxis appropriate Assessment/Plan Vida Nina is a 70 year old year old female POD#1 s/p EUA, TLH-BSO for endometrial cancer #Postoperative care - VSSAF - VTE (more content not included)...[facility]04-04-2022 Note HNO ID: [id number] Author: Hieu Raymond APRN.CARE COORDINATION MANAGER Service: Anesthesiology Author Type: Nurse Astronomy Department Chair Type: Anesthesia Procedure Notes Filed: 09/07/2021 9:28 AM Note Text: ANESTHESIOLOGY PROCEDURE NOTE Airway General Information Procedure Start Time/Medication Administration: 09/07/2021 8:29 AM Patient location during procedure: OR Timeout Performed Pre-procedure: timeout performed Consent Obtained: Yes Patient identity confirmed: arm band Staffing CARE COORDINATION MANAGER: Hieu Raymond APRN.CARE COORDINATION MANAGER Performed by: CARE COORDINATION MANAGER Indications and Patient Condition Preoxygenated: yes Patient position: sniffing, ramp and reverse Trendelenburg Manual In-Line Stabilization: No Difficult Mask: No Indications for airway management: anesthesia anesthesia circuit Method: modified rapid sequence Cricoid Pressure: Yes Airway Accessory: oral airway Final Airway Details Final airway type: endotracheal airway Final Endotracheal Airway: ETT Cuffed: yes Successful intubation technique: video laryngoscopy Devices used: On-Q-ity Endotracheal tube insertion site: oral Blade: Osman [...] intubation: no Difficult airway SIGNATURE: Hieu Raymond APRN.CARE COORDINATION MANAGER PATIENT NAME: Vida Nina DATE: September 07, 2021 TIME: 9:25 AM CSN: [id number]03-29-2022 Instructions * Patient Instructions* Naila Barrientos APRN.EQUINE INTERN - 09/01/2021 3:11 PM EDT PATIENT PREOPERATIVE INSTRUCTIONS Your surgeon has scheduled for your procedure at this surgery center: Dr. Cuevas has scheduled you for your procedure at this surgery center [facility]: [phone], [address], [place] [address] Enter the hospital through the main entrance and proceed directly to the Surgery Welcome Center. Asyou enter the Surgery Welcome Center and sign in with the specialty foods cook, we may ask for your photo ID [...] We will make every attempt to keep youand your family informed of changes as they [...] pain medications that do not contain aspirin orNSAIDS as needed. --If you take any of [...] If you are having surgery at the [facility], please bring your glucometer Pain Medications: You may take tylenol for pain Medications to be taken with small amount of fluid on the morning of surgery: * REFER TO MEDICATIONLISTED PROVIDED WITH YOUR AFTER VISIT SUMMARY. If you start any new medications after [...] a remote please bring the remote with youday of surgery. - Candy, mints, gum and [...] call the surgeon's office and let the surgeonadvise you on how to proceed. -Oral hygiene [...] surgery. - YOU MUST HAVE A RESPONSIBLE CASHIER SELF SERVICE GASOLINE TAKE YOU HOME. A THERMOGRAPH OPERATOR, CAB OR UBER CASHIER SELF SERVICE GASOLINE CANNOT BE MADEA RESPONSIBLE CASHIER SELF SERVICE GASOLINE. - We recommend that a responsible person stays with you overnight to take care of you. - You cannot stay in a hotel alone after outpatient surgery. You will not be permitted to have yoursurgery, if you do not have someone to [...] COVID-19 positive. If visitors do not follow [facility] masking guidelines, caregivers can ask [facility] to [facility] and restrict their visitation privileges. For support, contact Elizabeth at [phone] or [email or web address]. The visitor will be allowed to stay [...] and will then instruct the visitor for case picker directions Visitors who have tested positive for [...] but if you wish to bring undergarments forafter surgery you may. Any questions regarding length of surgery, surgery procedure and post operative care should be be addressed to your surgeon Anesthesia suggested reading: Bouchra Harris, Prepare for Surgery, Heal Faster: A Guide of Mind Body Techniques ([place], [place];[employer]: Fourth Edition) 2011 Naila Barrientos APRN.CNP 09/01/21 documented in this encounterUniversity Hospitals Portage Medical Center03-29-2022 History and physical note * Naila Barrientos APRN.CNP - 09/01/2021 2:53 PM EDT HISTORY AND PHYSICAL EXAMINATION SERVICE DATE: 09/01/2021 SERVICE TIME: 3:07 PM PRIMARY CARE PHYSICIAN: No primary care provider on file. REASON FOR VISIT: Vida Nina is a 70 year old female who is scheduled for Procedure(s): EXAM UNDER ANESTHESIA PELVIC / VAGINAL (N/A) LAPAROSCOPIC HYSTERECTOMY TOTAL FOR UTERUS 250 G OR LESS W/REMOVAL TUBE(S) AND/OR OVARY(S) (N/A) LAPAROSCOPY SURGICAL W/RETROPERITONEAL LYMPH NODE SAMPLING SINGLE OR MULTIPLE (N/A) LAPAROTOMY PELVIC (N/A) at the request of Dr. Jennifer Cuevas for routine H&P. My final recommendation will [...] CHIEF COMPLAINT: Endometrial cancer (HCC) (C54.1) HPI: Vida Nina is a 70 year old female present [...] OR MULTIPLE,LAPAROTOMY PELVIC on 09/07/[address] Cuevas. Surgery will be at [facility] OR Scheduled as an TBA Have you been in contact with someone with known coronavirus/Covid 19? no Have you had surgery or pre testing at [facility] in the past 3 years? no [...] Negative for: AICD/PPM, chest pain, CHF, recent MD and open heart surgery. GI: Positive for: abdominal pain Negative for: nausea and vomiting. : No history of dysuria, frequency or incontinence, stones or chronic kidney disease. No difficulty urinating, nocturia > 1 time per night or hematuria. 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 [...] HISTORY Procedure Laterality Date FOOT SURGERY HX 2004 fx foot FAMILY [...] mL by mouth. Every 4 hrs as neededYes guaiFENesin (ROBITUSSIN) 100 mg/5 mL syrup Take [...] capsule Take 1 capsule by mouth once eachweek. Yes QUEtiapine XR (SEROQUEL XR) 300 mg [...] or any previous visit (from the past 83990 hour(s)). Assessment No problem-specific Assessment & Plan notes found for this encounter. METS: Climb a flight of stairs or walk up a hill (5.50 METs) DASI Score: 5.5; Patient denies any chest pain or undue shortness of breath with the above physicalactivity. ANESTHESIA FINDINGS: Intubation History: No history of [...] slightly elevated. Treated with oral medications. No digital content coordinator Hyperlipidemia- treated with a statin Pertinent cardiac [...] Initiated: Ordered by surgeon- none Ordered by medical delivery driver - cbc, T*S, con abo Instructions Given to Patient: Instructions located in the after visit summary. Patient given verbal and written preop instructions and voices comprehension and compliance. SIGNATURE: Naila Barrientos APRN.CNP PATIENT NAME: Vida Nina DATE: September 01, 2021 TIME: 2:53 PM PAGER/CONTACT #: documented in this encounterUniversity Hospitals Portage Medical Center03-18-2022 NoteHNO ID: [id number] Author: Jennifer Cuevas MD Service: ? Author Type: Physician Type: Progress Notes Filed: 08/26/2021 1:21 PM Note Text: Gynecologic Oncology [facility] [place] General Consult Date of service: 08/21/2021 PCP: Dr. Shayna Malhotra Psychiatrist: Dr. Brie Geller PROBLEM/CC: Vida Nina presents for a consult for endometrial cancer referred by Krunal Erazo MD HPI: Vida Nina is a 70 year old female who [...] many years since she has seen a director of guidance in public schools, maybe > 10 years. 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 Age at Menarche: ? Age at First : ? Age at Menopause: ? 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 Sexual Activity: Not Asked; [...] 1 capsule by mouth (more content not included)...[facility] 07-29-2021 NoteHNO ID: [id number] Author: Krunal Erazo MD Service: ? Author Type: Physician Type: Progress Notes Filed: 07/30/2021 10:15 AM Note Text: Vida Nina is a 70 year old female who [...] many years since she has seen a director of guidance in public schools, maybe > 10 years. 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 History Comments: Sexual Activity: Not Asked; No [...] external genitalia atrophic, normal Bartholin's glands, urethra, Dallas's glands, no vulvar lesions, no cervical lesions, good vaginal support, normal appearing perineal body and perianal region, scant (more content not included)...[facility] Pre-op testing- Primary Preoperative examination, unspecified Endometrial cancer (HCC) Malignant neoplasm of corpus uteri, except isthmus Mixed hyperlipidemia 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, with long-term current use of insulin (HCC) Primary hypertension Unspecified essential hypertension Endometrial cancer (HCC) Malignant neoplasm of corpus uteri, except isthmus documented in this encounter [facility]* Diagnosis Onset Date Resolution Status Uterine mass acute Endometrial adenocarcinoma a cute Debility acute Pulmonary embolism acute [facility] Work Phone: Evaluation note* Diagnosis Onset Date Resolution Status Uterine mass acute Endometrial adenocarcinoma a cute Debility acute Pulmonary embolism acute Debility acute Elevated troponin I level ac mark Lactic acidosis acute DM2 (diabetes mellitus, type 2) chronic [facility] Work Phone: Evaluation note* Diagnosis Endometrial cancer (HCC)- Primary Malignant neoplasm of corpus uteri, except isthmus documented in this encounter [facility]* Diagnosis Onset Date Resolution Status Debility acute Pulmonary embolism acute Debility acute DM2 (diabetes mellitus, type 2) chronic Elevated troponin I level re solved Lactic acidosis resolved [facility] Work Phone: Evaluation noteNo assessment information available [facility] Work Phone: Evaluation note* Diagnosis Onset Date Resolution Status Debility acute Endometrial adenocarcinoma a cute Former smoker acute History of seizures acute Pulmonary embolism acute Vitamin D deficiency acute Bipolar disorder chronic DM2 (diabetes mellitus, type 2) chronic Type 1 diabetes mellitus chr onic [facility] Work Phone: Evaluation note* Diagnosis Onset Date Resolution Status Debility acute Vitamin D deficiency acute Bipolar disorder chronic Depression chronic DM2 (diabetes mellitus, type 2) chronic [facility] Work Phone: [facility] Phone: [facility]WW[facility] Work Phone: Hospital Discharge instructions Additional Instructions Thank you for trusting us with your care today! Please take Tylenol (2 pills, 650 mg), ibuprofen (2 pills, 400 mg) every 6 hours as needed for pain and fever control. Please take antibiotics as prescribed. Please use mouthwash called nystatin as prescribed. Please return to the emergency department if your symptoms change or worsen. Specifically he cannot swallow, you drool, you develop tightness in your throat, neck stiffness or swelling or anything or jaw. Please follow with your primary care physician for further outpatient evaluation and management.[facility] Work Phone: Summary Purpose Family History No Family History Records Found Relationship Condition Age at Onset Recorded Date/T claudia mother Diabetes mellitus Unknown Hypertension Unknown Cardiac disease Unknown Disorder of thyroid Unknown father Cerebrovascular accident (CVA) Unknown Diabetes mellitus Unknown brother Parkinson's disease Unknown Lupus erythematosus Unknown Alcoholism Unknown Blood clots in brain Unknown grandfather Cardiac disease Unknown Asthma Unknown Advance Directives No Advanced Directives Records FoundDocuments on File Type Date Recorded 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 Expl anation Advance Directive(s) 09/07/2021 6:14 AM Advance Directive Response Recorded Date/ Time Living Will No September 20, 2021 7:30am Power of Card Maker No September 20 7:30am Advance Directive Response Recorded Date/ Time Living Will No September 20, 2021 12:38pm Power of Card Maker No September 20 12:38pm Advance Directive Response Recorded Date/ Time Name of Medical Power of Card Maker TODD November 22, 2021 1:03pm Living Will Yes November 22, 2021 1:03pm Power of Card Maker Yes November 22 1:03pm Advance Directive Response Recorded Date/ Time Name of Medical Power of Card Maker Todd Nina November 22, 2021 5:55pm Living Will No November 22, 2021 5:55pm Power of Card Maker Yes November 22 5:55pm Advance Directive Response Recorded Date/ Time Living Will No April 13 10:27am Power of Card Maker Yes April 13, 2022 10:27am Advance Directive Response Recorded Date/ Time Living Will No April 13 11:27am Power of Card Maker Yes April 13, 2022 11:27am Advance Directive Response Recorded Date/ Time Living Will No January 09, 2023 5:18pm Power of Card Maker No January 09 5:18pm Advance Directive Response Recorded Date/ Time Living Will No January 09, 2023 4:18pm Power of Card Maker No January 09 4:18pm Advance Directive Response Recorded Date/ Time Do you have a Healthcare Power of Card Maker? Yes October 09, 2024 5:45pm Advance Directive Response Recorded Date/ Time Do you have a Healthcare Power of Card Maker? No October 09, 2024 11:07pm Health Concerns Infection Onset Date Last Indicated Resolved Time COVID-19 Rule-Out 09/07/2021 09/07/2021 Chief Complaint and Reason for Visit Chief Complaint [facility] VAGINAL BLEEDING NEW-CERVICAL MASS MED ONC CERVICAL MASS 2WKS NO LABS REVIEW CT/PATH FRO [facility] PE, FAILURE TO THRIVE PE, FAILURE TO THRIVE Reason for Visit Uterine mass Endometrial adenocarcinoma Debility Pulmonary embolism Chief Complaint [facility] VAGINAL BLEEDING NEW-CERVICAL MASS MED ONC CERVICAL MASS 2WKS NO LABS REVIEW CT/PATH FRO [facility] PE, FAILURE TO THRIVE PE, FAILURE TO THRIVE PE, FAILURE TO THRIVE PE, FAILURE TO THRIVE Reason for Visit Uterine mass Endometrial adenocarcinoma Debility Pulmonary embolism Chief Complaint [facility] VAGINAL BLEEDING NEW-CERVICAL MASS MED ONC CERVICAL MASS 2WKS NO LABS REVIEW CT/PATH FRO [facility] PE, FAILURE TO THRIVE PE, FAILURE TO THRIVE PE, FAILURE TO THRIVE PE, FAILURE TO THRIVE [facility] Reason for Visit Uterine mass Endometrial adenocarcinoma Debility Pulmonary embolism Chief Complaint VAGINAL BLEEDING NEW-CERVICAL MASS MED ONC CERVICAL MASS 2WKS NO LABS REVIEW CT/PATH FRO [facility] PE, FAILURE TO THRIVE PE, FAILURE TO THRIVE PE, FAILURE TO THRIVE PE, FAILURE TO THRIVE [facility] Reason for Visit Uterine mass Endometrial adenocarcinoma Debility Pulmonary embolism Chief Complaint VAGINAL BLEEDING NEW-CERVICAL MASS MED ONC CERVICAL MASS 2WKS NO LABS REVIEW CT/PATH FRO [facility] PE, FAILURE TO THRIVE PE, FAILURE TO THRIVE PE, FAILURE TO THRIVE PE, FAILURE TO THRIVE [facility] DEBILITY/KAYLA Reason for Visit Uterine mass Endometrial adenocarcinoma Debility Pulmonary embolism Chief Complaint NEW-CERVICAL MASS MED ONC CERVICAL MASS 2WKS NO LABS REVIEW CT/PATH FRO [facility] PE, FAILURE TO THRIVE PE, FAILURE TO THRIVE PE, FAILURE TO THRIVE PE, FAILURE TO THRIVE [facility]WORK [facility] DEBILITY/KAYLA DEBILITY/KAYLA DEBILITY/KAYLA DEBILITY/KAYLA Reason for Visit Uterine mass Endometrial adenocarcinoma Debility Pulmonary embolism Debility Elevated troponin I level Lactic acidosis DM2 (diabetes mellitus, type 2) Chief Complaint [facility] PE, FAILURE TO THRIVE PE, FAILURE TO THRIVE PE, FAILURE TO THRIVE PE, FAILURE TO THRIVE [facility]WORK [facility] DEBILITY/KAYLA DEBILITY/KAYLA DEBILITY/KAYLA DEBILITY/KAYLA DEBILITY/KAYLA [facility]WORK [facility]WORK [facility] WORK Reason for Visit Debility Pulmonary embolism Debility DM2 (diabetes mellitus, type 2) Elevated troponin I level Lactic acidosis Chief Complaint [facility]WORK [facility] WORK Chief Complaint [facility] LAB WOR K 1 Y FU [facility] WORK Reason for Visit Debility Endometrial adenocarcinoma Former smoker History of seizures Pulmonary embolism Vitamin D deficiency Bipolar disorder DM2 (diabetes mellitus, type 2) Type 1 diabetes mellitus Chief Complaint [facility] WOR K 1 Y FU [facility] WORK [facility] WORK Reason for Visit Debility Endometrial adenocarcinoma Former smoker History of seizures Pulmonary embolism Vitamin D deficiency Bipolar disorder DM2 (diabetes mellitus, type 2) Type 1 diabetes mellitus Chief Complaint 1 Y FU [facility] WORK [facility] WORK [facility]WORK Reason for Visit Debility Endometrial adenocarcinoma Former smoker History of seizures Pulmonary embolism Vitamin D deficiency Bipolar disorder DM2 (diabetes mellitus, type 2) Type 1 diabetes mellitus Chief Complaint [facility] WOR K 6 M FU gen illness Reason for Visit Debility Vitamin D deficiency Bipolar disorder Depression DM2 (diabetes mellitus, type 2) Chief Complaint [facility]WORK [facility] Chief Complaint Admit Date LT Ankle Pain July 04, 2024 1 2:57pm [facility] WORK July 09, 2024 4:00am ACUTE CYSTITIS, NEUROPATHIC PAIN OF LEFT FOOT AND October 09, 2024 9:56pm Reason for Visit Admit Date Debility July 04, 2024 1 2:57pm Obesity July 04, 2024 1 2:57pm Lymphedema July 04, 2024 1 2:57pm Type 1 diabetes mellitus July 04, 025 12:57pm Pain of left heel July 04, 2024 1 2:57pm Acute cystitis with hematuria October 09 2 025 9:56pm Bipolar 1 disorder October 09, 2024 9:56pm Debility October 09, 2024 9:56pm Morbid obesity with BMI of 45.0-49.9, ad ult October 09, 2024 9:56pm Neuropathic pain of foot October 09, 2024 9 :56pm Obesity October 09, 2024 9:56pm Pain of left heel October 09, 2024 9:56pm Poor hygiene October 09, 2024 9:56pm Unable to care for self October 09, 2024 9: 56pm UTI (urinary tract infection) October 09, 2 025 9:56pm DM2 (diabetes mellitus, type 2) October 09, 2024 9:56pm Chief Complaint Admit Date LT Ankle Pain July 04, 2024 1 2:57pm [facility] July 09, 2024 4:00am ACUTE CYSTITIS, NEUROPATHIC PAIN OF LEFT FOOT AND October 09, 2024 9:56pm ACUTE CYSTITIS, NEUROPATHIC PAIN OF LEFT FOOT AND October 10, 2024 7:39am Additional Source Comments INFORMATION SOURCE (unrecogn ized section and content) DATE CREATED AUTHOR 08/31/2021 [facility] DATE CREATED AUTHOR AUTHOR'S ORGANIZ ATION 12/01/2021 [facility] DATE CREATED AUTHOR AUTHOR'S ORGANIZ ATION 11/06/2024 [facility] Source Comments (unrecognize d section and content) In the event this informatio n is protected by the Federal Confidentiality of Alcohol and Drug Abuse Patient Records regulations: The Federal rules restrict any use of the information to criminally investigate or prosecute any alcohol or drug abuse patient.[facility] CenterIn the event this information is protected by the Federal Confidentiality of Alcohol and Drug Abuse Patient Records regulations: The Federal rules restrict any use of the information to criminally investigate or prosecute any alcohol or drug abuse patient.[facility] CenterIn the event this information is protected by the Federal Confidentiality of Alcohol and Drug Abuse Patient Records regulations: The Federal rules restrict any use of the information to criminally investigate or prosecute any alcohol or drug abuse patient.[facility] CenterIn the event this information is protected by the Federal Confidentiality of Alcohol and Drug Abuse Patient Records regulations: The Federal rules restrict any use of the information to criminally investigate or prosecute any alcohol or drug abuse patient.[facility] CenterIn the event this information is protected by the Federal Confidentiality of Alcohol and Drug Abuse Patient Records regulations: The Federal rules restrict any use of the information to criminally investigate or prosecute any alcohol or drug abuse patient.[facility] Reason for Visit (unrecogniz ed section and content) Reason Comments Endometrial cancer Endometrial cancer ( HCC) [C54.1] Reason Comments Patient Update Reason Comments Results Reason Comments Appointment Cancelled Goals (unrecognized section and content) Goals may be documented in a n alternate sectionGoals may be documented in an alternate sectionGoals may be documented in an alternate sectionGoals may be documented in an alternate sectionGoals may be documented in an alternate sectionGoals may be documented in an alternate sectionGoals may be documented in an alternate sectionGoals may be documented in an alternate sectionGoals may be documented in an alternate sectionGoals may be documented in an alternate sectionGoals may be documented in an alternate sectionGoals may be documented in an alternate sectionGoals may be documented in an alternate section Care Teams (unrecognized sec tion and content) Team Status: Active Member Role Status Dates Dr. Geovanni Chung MD Family Provider Active Dr. Shayna Malhotra MD Primary Care Provider Active Team Status: Inactive Member Role Status Dates Dr. Shayna Malhotra MD Primary Care Provider, Attendi ng Provider Active Team Status: Inactive Member Role Status Dates Dr. Shayna Malhotra MD Primary Care Provider Active Shayna Malhotra MD Attending Provider Active Team Status: Inactive Member Role Status Dates Dr. Shayna Malhotra MD Primary Care Provider Active [facility] Attending Provider Acti ve Team Status: Inactive Member Role Status Dates Dr. Shayna Malhotra MD Primary Care Provider Active Shayna ROSA MD Attending Provider Active Team Status: Inactive Member Role Status Dates Dr. Shayna Malhotra MD Primary Care Provider Active Dr. Kendell Do DO Emergency Provider Active Team Status: Active Member Role Status Dates Dr. Shayna Malhotra MD Primary Care Provider Active Team Status: Inactive Member Role Status Dates Dr. Shayna Malhotra MD Primary Care Provider Active Start: July 04, 2024 End: July 04, 2024 Dr. Shayna Malhotra MD Attending Provider Active Start: July 04, 2024 End: July 04, 2024 Team Status: Active Member Role Status Dates Dr. Shayna Malhotra MD Primary Care Provider Active Start: July 09, 2024 Shayna ROSA MD Attending Provider Active Start: July 09, 2024 Shayna ROSA MD Referring Provider Active Start: July 09, 2024 Team Status: Active Member Role Status Dates Dr. Shayna Malhotra MD Primary Care Provider Active Start: October 09, 2024 Shayna ROSA MD Attending Provider Active Start: October 09, 2024 Team Status: Active Member Role Status Dates Dr. Shayna Malhotra MD Primary Care Provider Active Start: October 09, 2024 Dany Richardson MD Emergency Provider Active Star t: October 09, 2024 Dr. Missael Hernandez DO Admit Provider Active Start: October 09, 2024 Dr. Missael Hernandez DO Attending Provider Active Start: October 09, 2024 Team Status: Inactive Member Role Status Dates Dr. Shayna Malhotra MD Primary Care Provider Active Start: October 09, 2024 End: October 11, 2024 Dany Richardson MD Emergency Provider Active Star t: October 09, 2024 End: October 11, 2024 Dr. Missael Hernandez DO Admit Provider Active Start: October 09, 2024 End: October 11, 2024 Dr. Missael Hernandez DO Other Provider Active Start: October 09, 2024 End: October 11, 2024 Dr. Tyrell Page MD Attending Provider Active Start: October 09, 2024 End: October 11, 2024 Team Status: Active Member Role Status Dates Dr. Shayna Malhotra MD Primary Care Provider Active Start: October 10, 2024 Dany Richardson MD Emergency Provider Active Star t: October 10, 2024 Dr. Missael Hernandez DO Admit Provider Active Start: October 10, 2024 Dr. Missael Hernandez DO Other Provider Active Start: October 10, 2024 Dr. Tyrell Page MD Attending Provider Active Start: October 10, 2024 Dr. Tyrell Page MD Other Provider Active Sta rt: October 10, 2024 FOR RECORDS PERTAINING TO PATIENTS WHO ARE [...] BE BASED ON THE PRIMARY CLINICAL RECORDS. [employer] [facility]. provides no warranty or guarantee of the accuracy or completeness of information in this document.
--- OUTSIDE RECORDS SUMMARY | 2024-11-07 04:33 | XMS RPT_ITS | CCD ---
Author Organization [facility] Care Team Providers Care Book Editor Name Role Phone Sena Cox NP Unavailable [...] Unavailabl e Dylan LEAL, Dany Emergency Provider Hernandez DO, Dr. Canas Admit Provider Unavail able Hernandez DO, Dr. Canas Attending Provider Unav ailable Hernandez DO, Dr. Canas Other Provider Unavail able Camilo LEAL, Dr. Santillan Attending Provider Camilo LEAL, Dr. Santillan Other Provider Marya OLS, Shayna Attending Unavailable Marya, Shayna [...] Allergy 08-12-19 06 Shortness of Breath, Anaphylaxis [facility] (20 sources) Contrast media; Translations: [red dye] Drug Allergy 02-10-20 16 [facility] (5 sources) Fish Drug Allergy 02-10-20 16 [facility] (20 sources) metFORMIN Drug Allergy 11-21-19 17 Diarrhea, GI Upset, Vomiting [facility] (20 sources) paliperidone Drug Allergy 11-21-19 17 Rash [facility] (14 sources) Penicillins Drug Allergy 07-15-[address] [facility] (20 sources) Shellfish; Translations: [shellfish derived] Drug Intolerance 02-29-20 19 Diarrhea, Vomiting [facility] (15 sources) Sulfonamides (Antibiotic) Drug Allergy 07-15-19 06 Rash [facility] (15 sources) Iodinated Contrast Media Drug Allergy 02-29-20 19 Rash [facility] (4 sources) Mold Extract Drug Allergy 09-08-[address] [facility] (19 sources) Ciprofloxacin; Translations: [ciprofloxacin HCl] Drug Allergy 08-12-19 22 Anaphylaxis [facility] (18 sources) red (food color); Translations: [red (food color)] Allergy to substance 09-21-19 [facility] (1 source) Penicillins Drug Allergy 07-15-[address] [facility] (8 sources) Penicillins Allergy to substance 11-23-19 RASH AND ITCHING [facility] (8 sources) Sulfonamides (Antibiotic) Allergy to substance 11-23-19 [facility]CH[facility] (8 sources) Triiodobenzoic Acids Allergy to substance 11-23-19 Rash [facility] (1 source) Ciprofloxacin Drug Allergy 10-10-19 [facility] (1 source) metFORMIN Drug Allergy 10-10-19 [facility] (1 source) paliperidone Drug Allergy 10-10-19 [facility] (1 source) Penicillins Drug allergy (disorder) 10-10-19 [facility] (1 source) Sulfonamides (Antibiotic) Drug allergy (disorder) 10-10-19 [facility] (1 source) Iodinated Contrast Media Drug allergy (disorder) 10-10-19 [facility] Medications Current Medications Medication Drug Class(es) Dates Sig (Normalized) Sig (Original) acetaminophen 325 mg oral tablet (20 sources) Start: 09-07-2021 End: 09-21-2021 take 2 tablets by mouth every six hours acetaminophen (TYLENOL) 325 mg tablet Take 2 tablets by mouth every 6 hours for 14 days. 112 tablet 0 09/07/2021 09/21/2021 Active Start: 07-30-2021 take 1 tablet by [facility] every four hours as needed Acetaminophen (Tylenol) 325 mg tablet Active 325 MG PO EVERY 4 HOURS NEEDED July 30, 2021 4:00pm Start: 07-30-2021 take 1 tablet by mouth once Ac etaminophen (Tylenol) 325 mg tablet Active 325 MG PO ONCE July 30, 2021 4:00pm Start: 07-30-2021 take 2 tablets by mo [facility] every four hours as needed for pain [...] D2) 1,250 mcg (50,000 unit) Capsule Active 34587 U PO Q14D September 20, 2021 12:00am Take every 2 weeks on Mondays Start: 09-20-2021 take 98842 [IU] by m outh every other week Ergocalciferol (Vitamin D2) Active 37741 UNIT PO Q14D September 19, 2021 11:00pm Take every 2 weeks on Mondays Start: 09-08-2017 End: 03-21-2020 Ergocalciferol (Vitamin D2) 50,000 unit capsule Discontinued 34539 U PO EVERY MONTH September 08, 2017 12:00am March 21, 2020 2:54pm Start: 11-15-2014 End: 09-01-2021 take 1 capsule by mouth every week ergocalciferol, vitamin D2, (VITAMIN D) 50,000 unit capsule Take 1 capsule by mouth once each week. 4 capsule 12 11/15/2014 09/01/2021 Discontinued Comment on above: Take 1 capsule by mo [facility] once each week. glucose 0.4 mg/mg oral [...] Comment on above: Take 1 tablet by [facility] every 6 hours for 14 days. [...] SOPN Use 18 units daily. INSULIN GLARGINE [id number] Sena Cox NP Comment on above: Inject [...] Comment on above: Take 1 capsule by [facility] once each week. Take 1 capsule by [facility] twice a week. (ONE CAPSULE) FOR VITAMIN D DEFICIENCY Take 1 capsule by [facility] once each week. (ONE CAPSULE) FOR VITAMIN [...] Comment on above: Take 1 tablet by [facility] three times daily as needed. fluconazole [...] BLOOD (3 sources) Start: 10-26-2016 End: 01-26-2025 Track BLUE STRP Check BG 4-5 times daily GLUCOSE BLOOD [id number] Sena Cox [employer] 3 ml insulin detemir 100 unt/ml pen [...] (3 sources) Start: 10-26-2016 ONETOUCH [facility] Use to check blood glucose up to 4 times daily. LANCETS [id number] Sena Cox [employer] mag hydrox/aluminum hyd/simeth (ANTACID SUSPENSION ORAL) (5 [...] Active Comment on above: twice daily. nystatin [id number] unt/ml oral suspension (15 sources) Polyene Antifungal [...] November 23, 2021 11:00pm polyethylene glycol 3350 55901 mg powder for oral solution (9 sources) [...] shows localized disease. 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, [address] BUN/CRE Normal 10-20 [facility] Comment on above: Order Comment: 216 Result Comment: QNS UTO X1 Performed By: #### L 506.1000, L100.0100, L501.9985, L500.4050 #### [facility] [address] [place], [address] Calcium Normal 7.6-11.0 [facility] Comment on above: Order Comment: 216 Result Comment: QNS UTO X1 Performed By: #### L 506.1000, L100.0100, L501.9985, L500.4050 #### [facility] [address] [place], [address] CL Normal 98-108 [facility] Comment on above: Order Comment: 216 Result Comment: QNS UTO X1 Performed By: #### L 506.1000, L100.0100, L501.9985, L500.4050 #### [facility] [address] [place], [address] CO2 Normal 21.0-32.0 [facility] Comment on above: Order Comment: 216 Result Comment: QNS UTO X1 Performed By: #### L 506.1000, L100.0100, L501.9985, L500.4050 #### [facility] [address] [place], [address] CREAT,SERUM Normal 0.70-1.20 [facility] Comment on above: Order Comment: 216 Result Comment: QNS UTO X1 Performed By: #### L 506.1000, L100.0100, L501.9985, L500.4050 #### [facility] [address] [place], [address] eGFR Normal >60 [facility] Comment on above: Order Comment: 216 Result Comment: QNS UTO X1 Performed By: #### L 506.1000, L100.0100, L501.9985, L500.4050 #### [facility] [address] [place], [address] GAP Normal 5-15 [facility] Comment on above: Order Comment: 216 Result Comment: QNS UTO X1 Performed By: #### L 506.1000, L100.0100, L501.9985, L500.4050 #### [facility] [address] [place], [address] GLU Normal 70-99 [facility] Comment on above: Order Comment: 216 Result Comment: QNS UTO X1 Performed By: #### L 506.1000, L100.0100, L501.9985, L500.4050 #### [facility] [address] [place], [address] Potassium Normal 3.3-5.1 [facility] Comment on above: Order Comment: 216 Result Comment: QNS UTO X1 Performed By: #### L 506.1000, L100.0100, L501.9985, L500.4050 #### [facility] [address] [place], [address] Basic Metabolic Profile (BMP) Normal 133-145 [facility] Comment on above: Order Comment: 216 Result Comment: QNS UTO X1 Performed By: #### L 506.1000, L100.0100, L501.9985, L500.4050 #### [facility] [address] [place], [address] CBC W/Diff, Automatedon 06-0 -2024 Absolute Neut Normal 2.0-7.7 [facility] Comment on above: Order Comment: 216 Result Comment: QNS UTO X1 Performed By: #### L 506.1000, L100.0100, L501.9985, L500.4050 #### [facility] [address] [place], [address] HCT Normal 37-47 [facility] Comment on above: Order Comment: 216 Result Comment: QNS UTO X1 Performed By: #### L 506.1000, L100.0100, L501.9985, L500.4050 #### [facility] [address] [place], [address] HGB Normal 12.0-15.0 [facility] Comment on above: Order Comment: 216 Result Comment: QNS UTO X1 Performed By: #### L 506.1000, L100.0100, L501.9985, L500.4050 #### [facility] [address] [place], [address] MCH Normal 27.0-32.0 [facility] Comment on above: Order Comment: 216 Result Comment: QNS UTO X1 Performed By: #### L 506.1000, L100.0100, L501.9985, L500.4050 #### [facility] [address] [place], [address] MCHC Normal 32-36 [facility] Comment on above: Order Comment: 216 Result Comment: QNS UTO X1 Performed By: #### L 506.1000, L100.0100, L501.9985, L500.4050 #### [facility] [address] [place], [address] MCV Normal 81-99 [facility] Comment on above: Order Comment: 216 Result Comment: QNS UTO X1 Performed By: #### L 506.1000, L100.0100, L501.9985, L500.4050 #### [facility] [address] [place], [address] NEUT% Normal 47-70 [facility] Comment on above: Order Comment: 216 Result Comment: QNS UTO X1 Performed By: #### L 506.1000, L100.0100, L501.9985, L500.4050 #### [facility] [address] [place], [address] PLT Normal 150-450 [facility] Comment on above: Order Comment: 216 Result Comment: QNS UTO X1 Performed By: #### L 506.1000, L100.0100, L501.9985, L500.4050 #### [facility] [address] [place], [address] RBC Normal 4.2-5.4 [facility] Comment on above: Order Comment: 216 Result Comment: QNS UTO X1 Performed By: #### L 506.1000, L100.0100, L501.9985, L500.4050 #### [facility] [address] [place], [address] RDW CV Normal 11.6-14.6 [facility] Comment on above: Order Comment: 216 Result Comment: QNS UTO X1 Performed By: #### L 506.1000, L100.0100, L501.9985, L500.4050 #### [facility] [address] [place], [address] RDW SD Normal 35.1-43.9 [facility] Comment on above: Order Comment: 216 Result Comment: QNS UTO X1 Performed By: #### L 506.1000, L100.0100, L501.9985, L500.4050 #### [facility] [address] [place], [address] WBC Normal 4.4-11.0 [facility] Comment on above: Order Comment: 216 Result Comment: QNS UTO X1 Performed By: #### L 506.1000, L100.0100, L501.9985, L500.4050 #### [facility] [address] [place], [address] Lamotrigine (Lamictal) Level on 11-02-2024 LAMOTRIGINE 8.5 ug/mL Normal 2.0-20.0 [facility] Comment on above: Order Comment: 134 Result Comment: Dete ction Limit = 1.0 Performed at: [address] [id number] [employer]ning L[employer] Operator: Cody Llanos MD, Phone: [phone] Performed By: #### L 500.4050, L506.1000, L100.0100, L501.9985 #### [facility] [address] [place], [address] Trileptal-Oxcarbazepineon OXCARBAZEPINE 5 ug/mL Low 10-35 [facility] Comment on above: Order Comment: 134 Result Comment: This test was developed and its performance characteristics determined by [facility]. It has not been cleared or approved by the Food and Drug Administration. Detection Limit = 1 Performed By: #### L 500.4050, L506.1000, L100.0100, L501.9985 #### [facility] [address] [place], [address] CRPon 11-01-2024 C-REACTIVE PROT 14.10 mg/L High 0.0-3.0 [facility] Comment on above: Performed By: #### L 500.4050, L506.1000, L100.0100, L501.9985 #### [facility] [address] [place], [address] Uric Acidon 11-01-2024 URIC 5.6 mg/dL Normal 2.6-6.0 [facility] Comment on above: Result Comment: The drugs N-Acetylcysteine and Metamizole may falsely depress this assay. Performed By: #### L 500.4050, L506.1000, L100.0100, L501.9985 #### [facility] [address] [place], [address] Hemoglobin A1con 10-30-2024 HbA1c (Bld) [Mass fraction] 7.1 % High <=5.6 [facility] Comment on above: Order Comment: 134 Result Comment: Norm al < 5.7 % Prediabetic 5.7 - 6.4 % Diabetic >or= 6.5 % Please note range changes. Performed By: #### L 500.4050, L506.1000, L100.0100, L501.9985 #### [facility] [address] [place], [address] Lipid Profileon 10-30-2024 CHOL:HDL 1.80 Normal [facility] Comment on above: Order Comment: 134 Performed By: #### L 500.4050, L506.1000, L100.0100, L501.9985 #### [facility] [address] [place], [address] Cholesterol [Mass/Vol] 99 mg/dL Normal <=200 [facility] Comment on above: Order Comment: 134 Result Comment: Chol esterol level, Desirable <200 mg/dL Borderline high cholesterol 200-239 mg/dL High cholesterol >=240 mg/dL Recommendations of the NCEP Adult Treatment Panel for the following risk-cutoff thresholds for the [place] population. Performed By: #### L 500.4050, L506.1000, L100.0100, L501.9985 #### [facility] [address] [place], [address] Cholesterol in HDL [Mass/Vol] 55 mg/dL Normal [facility] Comment on above: Order Comment: 134 Result Comment: Linda onal Cholesterol Education Program (NCEP) guidelines: <40 mg/dL: Low HDL-cholesterol (major risk factor for CHD) >= 60 mg/dL: High HDL-cholesterol (negative risk factor for CHD) HDL-cholesterol is affected by a number of factors, e.g. smoking, exercise, hormones, sex and age. Performed By: #### L 500.4050, L506.1000, L100.0100, L501.9985 #### [facility] [address] [place], [address] Cholesterol in LDL [Mass/Vol] 34 mg/dL Normal [facility] Comment on above: Order Comment: 134 Result Comment: Bord iwyxnt=331-641 mg/dL Higher Ogyd=237 mg/dL or greater Performed By: #### L 500.4050, L506.1000, L100.0100, L501.9985 #### [facility] [address] [place], [address] Cholesterol in VLDL [Mass/Vol] 10 mg/dL Normal 5-40 [facility] Comment on above: Order Comment: 134 Performed By: #### L 500.4050, L506.1000, L100.0100, L501.9985 #### [facility] [address] [place], [address] Triglyceride [Mass/Vol] 51 mg/dL Normal [facility] Comment on above: Order Comment: 134 Result Comment: The drugs N-Acetylcysteine and Metamizole may falsely depress this assay. Normal range: <150 mg/dL Borderline High: 150-199 mg/dL High: 200-499 mg/dL Very High: >500 mg/dL Performed By: #### L 500.4050, L506.1000, L100.0100, L501.9985 #### [facility] [address] [place], [address] Vitamin D,25 Hydroxyon 10-30 Vitamin D 25-OH 22.0 ng/mL Low 30-100 [facility] Comment on above: Order Comment: 134 Result Comment: Maricarmen min D Status Deficiency: <20 ng/mL (50nmol/L) Insufficiency: 20-30 ng/mL (50-75 nmol/L) Sufficiency: 30-100 ng/mL (75-250 nmol/L) Toxicity: >100 ng/mL (>250 nmol/L) Performed By: #### L 500.4050, L506.1000, L100.0100, L501.9985 #### [facility] [address] [place], [address] CBC-Complete Blood Cnt No Di ffon 10-25-2024 Erythrocyte distribution width (RBC) [Ratio] 15.7 % High 11.6-14.6 [facility] Comment on above: Order Comment: 134 Performed By: #### L 500.4050, L506.1000, L100.0100, L501.9985 #### [facility] [address] [place], [address] Hematocrit (Bld) [Volume fraction] 39.5 % Normal 37-47 [facility] Comment on above: Order Comment: 134 Performed By: #### L 500.4050, L506.1000, L100.0100, L501.9985 #### [facility] [address] [place], [address] Hemoglobin (Bld) [Mass/Vol] 13.0 g/dL Normal 12.0-15.0 [facility] Comment on above: Order Comment: 134 Performed By: #### L 500.4050, L506.1000, L100.0100, L501.9985 #### [facility] [address] [place], [address] MCH (RBC) [Entitic mass] 29.1 pg Normal 27.0-32.0 [facility] Comment on above: Order Comment: 134 Performed By: #### L 500.4050, L506.1000, L100.0100, L501.9985 #### [facility] [address] [place], [address] MCHC (RBC) [Mass/Vol] 32.9 g/dL Normal 32-36 [facility] Comment on above: Order Comment: 134 Performed By: #### L 500.4050, L506.1000, L100.0100, L501.9985 #### [facility] [address] [place], [address] MCV (RBC) [Entitic vol] 88.4 fL Normal 81-99 [facility] Comment on above: Order Comment: 134 Performed By: #### L 500.4050, L506.1000, L100.0100, L501.9985 #### [facility] [address] [place], [address] Platelet mean volume (Bld) [Entitic vol] 11.9 fL Normal 6.2-12.0 [facility] Comment on above: Order Comment: 134 Performed By: #### L 500.4050, L506.1000, L100.0100, L501.9985 #### [facility] [address] [place], [address] Platelets (Bld) [#/Vol] 104 10*3/uL Low 150-450 [facility] Comment on above: Order Comment: 134 Performed By: #### L 500.4050, L506.1000, L100.0100, L501.9985 #### [facility] [address] [place], [address] RBC (Bld) [#/Vol] 4.47 10*6/uL Normal 4.2-5.4 [facility] Comment on above: Order Comment: 134 Performed By: #### L 500.4050, L506.1000, L100.0100, L501.9985 #### [facility] [address] [place], [address] RDW SD 51.5 fl High 35.1-43.9 [facility] Comment on above: Order Comment: 134 Performed By: #### L 500.4050, L506.1000, L100.0100, L501.9985 #### [facility] [address] [place], [address] WBC (Bld) [#/Vol] 6.3 10*3/uL Normal 4.4-11.0 [facility] Comment on above: Order Comment: 134 Performed By: #### L 500.4050, L506.1000, L100.0100, L501.9985 #### [facility] [address] [place], [address] Comprehensive Metabolic Prof [facility] 10-25-2024 Albumin [Mass/Vol] 3.8 g/dL Normal 3.4-4.8 [facility] Comment on above: Order Comment: 134 Performed By: #### L 500.4050, L506.1000, L100.0100, L501.9985 #### [facility] [address] [place], [address] Albumin/Globulin [Mass ratio] 0.9 {ratio} Normal 0.9-2.4 [facility] Comment on above: Order Comment: 134 Performed By: #### L 500.4050, L506.1000, L100.0100, L501.9985 #### [facility] [address] [place], [address] ALK PHOS 117 U/L High 35-104 [facility] Comment on above: Order Comment: 134 Performed By: #### L 500.4050, L506.1000, L100.0100, L501.9985 #### [facility] [address] [place], [address] ALT [Catalytic activity/Vol] 37 U/L High <=34 [facility] Comment on above: Order Comment: 134 Performed By: #### L 500.4050, L506.1000, L100.0100, L501.9985 #### [facility] [address] [place], [address] AST [Catalytic activity/Vol] 44 U/L High <=31 [facility] Comment on above: Order Comment: 134 Performed By: #### L 500.4050, L506.1000, L100.0100, L501.9985 #### [facility] [address] [place], [address] Bilirubin [Mass/Vol] 0.50 mg/dL Normal 0.00-1.30 [facility] Comment on above: Order Comment: 134 Performed By: #### L 500.4050, L506.1000, L100.0100, L501.9985 #### [facility] [address] [place], [address] BUN/CRE 25.5 RATIO High 10-20 [facility] Comment on above: Order Comment: 134 Performed By: #### L 500.4050, L506.1000, L100.0100, L501.9985 #### [facility] [address] [place], [address] Calcium [Mass/Vol] 9.4 mg/dL Normal 7.6-11.0 [facility] Comment on above: Order Comment: 134 Performed By: #### L 500.4050, L506.1000, L100.0100, L501.9985 #### [facility] [address] [place], [address] Chloride [Moles/Vol] 101 mmol/L Normal 98-108 [facility] Comment on above: Order Comment: 134 Performed By: #### L 500.4050, L506.1000, L100.0100, L501.9985 #### [facility] [address] [place], [address] CO2 [Moles/Vol] 23.5 mmol/L Normal 21.0-32.0 [facility] Comment on above: Order Comment: 134 Performed By: #### L 500.4050, L506.1000, L100.0100, L501.9985 #### [facility] [address] [place], [address] Creatinine [Mass/Vol] 0.93 mg/dL Normal 0.70-1.20 [facility] Comment on above: Order Comment: 134 Performed By: #### L 500.4050, L506.1000, L100.0100, L501.9985 #### [facility] [address] [place], [address] GAP 10 Normal 5-15 [facility] Comment on above: Order Comment: 134 Performed By: #### L 500.4050, L506.1000, L100.0100, L501.9985 #### [facility] [address] [place], [address] GFR/1.73 sq M.predicted among non-blacks MDRD (S/P/Bld) [Vol rate/Area] 65 mL/min/{1.73_m2} Normal >60 [facility] Comment on above: Order Comment: 134 Result Comment: mL/m in/1.73m2 CKD-EPI Creatinine Equation (2020) Performed By: #### L 500.4050, L506.1000, L100.0100, L501.9985 #### [facility] [address] [place], [address] Globulin (S) [Mass/Vol] 4.4 g/dL High 2.2-4.2 [facility] Comment on above: Order Comment: 134 Performed By: #### L 500.4050, L506.1000, L100.0100, L501.9985 #### [facility] [address] [place], [address] Glucose [Mass/Vol] 147 mg/dL High 70-99 [facility] Comment on above: Order Comment: 134 Performed By: #### L 500.4050, L506.1000, L100.0100, L501.9985 #### [facility] [address] [place], [address] Potassium [Moles/Vol] 4.7 mmol/L Normal 3.3-5.1 [facility] Comment on above: Order Comment: 134 Performed By: #### L 500.4050, L506.1000, L100.0100, L501.9985 #### [facility] [address] [place], [address] Sodium [Moles/Vol] 134 mmol/L Normal 133-145 [facility] Comment on above: Order Comment: 134 Performed By: #### L 500.4050, L506.1000, L100.0100, L501.9985 #### [facility] [address] [place], [address] T PROT 8.2 g/dL Normal 5.9-8.4 [facility] Comment on above: Order Comment: 134 Performed By: #### L 500.4050, L506.1000, L100.0100, L501.9985 #### [facility] [address] [place], [address] Urea nitrogen [Mass/Vol] 24 mg/dL High 4-19 [facility] Comment on above: Order Comment: 134 Performed By: #### L 500.4050, L506.1000, L100.0100, L501.9985 #### [facility] [address] [place], [address] Urine Cultureon 10-14-2024 [facility] Urine Culture Urine Culture Escherichia coli [place] Count 80,000-100,000 Escherichia coli: REACTION Ampicillin Islt [...] TMP SMX Islt TRANG <=20 S Normal [facility] Comment on above: Performed By: #### L 500.4050, L506.1000, L100.0100, L501.9985 #### [facility] [address] [place], [address] Basic Metabolic Profile (BMP )on 10-12-2024 BUN Normal 4-19 [facility] Comment on above: Result Comment: Canc elled via OM: Order cancelled - Patient discharged Performed By: #### L 506.1000, L100.0100, L501.9985, L500.4050 #### [facility] [address] [place], [address] BUN/CRE Normal 10-20 [facility] Comment on above: Result Comment: Canc elled via OM: Order cancelled - Patient discharged Performed By: #### L 506.1000, L100.0100, L501.9985, L500.4050 #### [facility] [address] [place], [address] Calcium Normal 7.6-11.0 [facility] Comment on above: Result Comment: Canc elled via OM: Order cancelled - Patient discharged Performed By: #### L 506.1000, L100.0100, L501.9985, L500.4050 #### [facility] [address] [place], [address] CL Normal 98-108 [facility] Comment on above: Result Comment: Canc elled via OM: Order cancelled - Patient discharged Performed By: #### L 506.1000, L100.0100, L501.9985, L500.4050 #### [facility] [address] [place], [address] CO2 Normal 21.0-32.0 [facility] Comment on above: Result Comment: Canc elled via OM: Order cancelled - Patient discharged Performed By: #### L 506.1000, L100.0100, L501.9985, L500.4050 #### [facility] [address] [place], [address] CREAT,SERUM Normal 0.70-1.20 [facility] Comment on above: Result Comment: Canc elled via OM: Order cancelled - Patient discharged Performed By: #### L 506.1000, L100.0100, L501.9985, L500.4050 #### [facility] [address] [place], [address] eGFR Normal >60 [facility] Comment on above: Result Comment: Canc elled via OM: Order cancelled - Patient discharged Performed By: #### L 506.1000, L100.0100, L501.9985, L500.4050 #### [facility] [address] [place], [address] GAP Normal 5-15 [facility] Comment on above: Result Comment: Canc elled via OM: Order cancelled - Patient discharged Performed By: #### L 506.1000, L100.0100, L501.9985, L500.4050 #### [facility] [address] [place], [address] GLU Normal 70-99 [facility] Comment on above: Result Comment: Canc elled via OM: Order cancelled - Patient discharged Performed By: #### L 506.1000, L100.0100, L501.9985, L500.4050 #### [facility] [address] [place], [address] Potassium Normal 3.3-5.1 [facility] Comment on above: Result Comment: Canc elled via OM: Order cancelled - Patient discharged Performed By: #### L 506.1000, L100.0100, L501.9985, L500.4050 #### [facility] [address] [place], [address] Basic Metabolic Profile (BMP) Normal 133-145 [facility] Comment on above: Result Comment: Canc elled via OM: Order cancelled - Patient discharged Performed By: #### L 506.1000, L100.0100, L501.9985, L500.4050 #### [facility] [address] [place], [address] CBC W/Diff, Automatedon 05-0 -2024 Absolute Neut Normal 2.0-7.7 [facility] Comment on above: Result Comment: Canc elled via OM: Order cancelled - Patient discharged Performed By: #### L 506.1000, L100.0100, L501.9985, L500.4050 #### [facility] [address] [place], [address] HCT Normal 37-47 [facility] Comment on above: Result Comment: Canc elled via OM: Order cancelled - Patient discharged Performed By: #### L 506.1000, L100.0100, L501.9985, L500.4050 #### [facility] [address] [place], [address] HGB Normal 12.0-15.0 [facility] Comment on above: Result Comment: Canc elled via OM: Order cancelled - Patient discharged Performed By: #### L 506.1000, L100.0100, L501.9985, L500.4050 #### [facility] [address] [place], [address] MCH Normal 27.0-32.0 [facility] Comment on above: Result Comment: Canc elled via OM: Order cancelled - Patient discharged Performed By: #### L 506.1000, L100.0100, L501.9985, L500.4050 #### [facility] [address] [place], [address] MCHC Normal 32-36 [facility] Comment on above: Result Comment: Canc elled via OM: Order cancelled - Patient discharged Performed By: #### L 506.1000, L100.0100, L501.9985, L500.4050 #### [facility] [address] [place], [address] MCV Normal 81-99 [facility] Comment on above: Result Comment: Canc elled via OM: Order cancelled - Patient discharged Performed By: #### L 506.1000, L100.0100, L501.9985, L500.4050 #### [facility] [address] [place], [address] NEUT% Normal 47-70 [facility] Comment on above: Result Comment: Canc elled via OM: Order cancelled - Patient discharged Performed By: #### L 506.1000, L100.0100, L501.9985, L500.4050 #### [facility] [address] [place], [address] PLT Normal 150-450 [facility] Comment on above: Result Comment: Canc elled via OM: Order cancelled - Patient discharged Performed By: #### L 506.1000, L100.0100, L501.9985, L500.4050 #### [facility] [address] [place], [address] RBC Normal 4.2-5.4 [facility] Comment on above: Result Comment: Canc elled via OM: Order cancelled - Patient discharged Performed By: #### L 506.1000, L100.0100, L501.9985, L500.4050 #### [facility] [address] [place], [address] RDW CV Normal 11.6-14.6 [facility] Comment on above: Result Comment: Canc elled via OM: Order cancelled - Patient discharged Performed By: #### L 506.1000, L100.0100, L501.9985, L500.4050 #### [facility] [address] [place], [address] RDW SD Normal 35.1-43.9 [facility] Comment on above: Result Comment: Canc elled via OM: Order cancelled - Patient discharged Performed By: #### L 506.1000, L100.0100, L501.9985, L500.4050 #### [facility] [address] [place], [address] WBC Normal 4.4-11.0 [facility] Comment on above: Result Comment: Canc elled via OM: Order cancelled - Patient discharged Performed By: #### L 506.1000, L100.0100, L501.9985, L500.4050 #### [facility] [address] [place], [address] Absolute lymphocyte countOrd ered By: Tyrell Page on 10-11-2024 Lymphocytes Auto (Unsp spec) [#/Vol] 1.20 10*3/uL 0.83-4.51 [facility] Absolute neutrophil countOrd ered By: Tyrell Page on 10-11-2024 Neutrophils (Bld) [#/Vol] 2.6 10*3/uL 2.0-7.7 [facility] Anion gap in Serum or Plasma Ordered By: Tyrell Page on 10-11-2024 Anion gap [Moles/Vol] 10 mmol/L 5-15 [facility] Automated lymphocyte count a s percentage of total leukocytesOrdered By: Tyrell Page on 10-11-2024 Lymphocytes/100 WBC Auto (Unsp spec) 26.8 % 19-41 [facility] BUN/creatinine ratioOrdered By: Tyrell Page on 10-11-2024 Urea nitrogen/Creatinine [Mass ratio] 28.3 mg/mg High 10-20 [facility] Basic Metabolic Profile (BMP )on 10-11-2024 BUN/CRE 28.3 RATIO High 10-20 [facility] Comment on above: Performed By: #### L 506.1000, L100.0100, L501.9985, L500.4050 #### [facility] [address] [place], [address] Calcium [Mass/Vol] 9.2 mg/dL Normal 7.6-11.0 [facility] Comment on above: Performed By: #### L 506.1000, L100.0100, L501.9985, L500.4050 #### [facility] [address] [place], [address] Chloride [Moles/Vol] 108 mmol/L Normal 98-108 [facility] Comment on above: Performed By: #### L 506.1000, L100.0100, L501.9985, L500.4050 #### [facility] [address] [place], [address] CO2 [Moles/Vol] 20.7 mmol/L Low 21.0-32.0 [facility] Comment on above: Performed By: #### L 506.1000, L100.0100, L501.9985, L500.4050 #### [facility] [address] [place], [address] Creatinine [Mass/Vol] 0.76 mg/dL Normal 0.70-1.20 [facility] Comment on above: Performed By: #### L 506.1000, L100.0100, L501.9985, L500.4050 #### [facility] [address] [place], [address] ECRCL 89.89 ml/min Normal 50-250 [facility] Comment on above: Performed By: #### L 506.1000, L100.0100, L501.9985, L500.4050 #### [facility] [address] [place], [address] GAP 10 Normal 5-15 [facility] Comment on above: Performed By: #### L 506.1000, L100.0100, L501.9985, L500.4050 #### [facility] [address] [place], [address] GFR/1.73 sq M.predicted among non-blacks MDRD (S/P/Bld) [Vol rate/Area] 84 mL/min/{1.73_m2} Normal >60 [facility] Comment on above: Result Comment: mL/m in/1.73m2 CKD-EPI Creatinine Equation (2020) Performed By: #### L 506.1000, L100.0100, L501.9985, L500.4050 #### [facility] [address] [place], [address] Glucose [Mass/Vol] 131 mg/dL High 70-99 [facility] Comment on above: Performed By: #### L 506.1000, L100.0100, L501.9985, L500.4050 #### [facility] [address] [place], [address] Potassium [Moles/Vol] 3.9 mmol/L Normal 3.3-5.1 [facility] Comment on above: Performed By: #### L 506.1000, L100.0100, L501.9985, L500.4050 #### [facility] [address] [place], [address] Sodium [Moles/Vol] 139 mmol/L Normal 133-145 [facility] Comment on above: Performed By: #### L 506.1000, L100.0100, L501.9985, L500.4050 #### [facility] [address] [place], [address] Urea nitrogen [Mass/Vol] 21 mg/dL High 4-19 [facility] Comment on above: Performed By: #### L 506.1000, L100.0100, L501.9985, L500.4050 #### [facility] [address] [place], [address] Basophil percentageOrdered B y: Tyrell Page on 10-11-2024 Basophils/100 WBC (Bld) 0.7 % 0-1 [facility] Bedside Glucoseon 10-11-2024 FINGERSTICK GLU 137 mg/dL High 74-106 [facility] Comment on above: Result Comment: ALINA GEMENT OF PATIENT CARE PER NURSING PROTOCOL Performed By: #### L 500.4050, L506.1000, L100.0100, L501.9985 #### [facility] [address] [place], [address] CBC W/Diff, Automatedon 05-0 PLT EST SLT DEC Normal ADEQ [facility] Comment on above: Performed By: #### L 500.4050, L506.1000, L100.0100, L501.9985 #### [facility] [address] [place], [address] Carbon dioxide, total [Moles /volume] in Central venous bloodOrdered By: Tyrell Page on 10-11-2024 CO2 [Moles/Vol] 20.7 mmol/L Low 21.0-32.0 [facility] Chloride assayOrdered By: Arabella Page on 10-11-2024 Chloride [Moles/Vol] 108 mmol/L 98-108 [facility] Eosinophil percentageOrdered By: Tyrell Page on 10-11-2024 Eosinophils/100 WBC (Bld) 5.1 % High 0-5 [facility] Erythrocyte distribution wid th ratioOrdered By: Tyrell Page on 10-11-2024 Erythrocyte distribution width (RBC) [Ratio] 16.0 % High 11.6-14.6 [facility] Erythrocyte distribution wid th standard deviationOrdered By: Tyrell Page on 10-11-2024 Erythrocyte distribution width (RBC) [Ratio] 50.8 fl High 35.1-43.9 [facility] Glomerular filtration rate ( GFR) estimation/1.73 sq m using serum, plasma, or whole bOrdered By: Tyrell Page on 10-11-2024 GFR/1.73 sq M.predicted among non-blacks MDRD (S/P/Bld) [Vol rate/Area] 84 mL/min/{1.73_m2} >60 [facility] Comment on above: mL/min/1.73m2 CKD-EP I Creatinine Equation (2020) [facility] deOrdered By: Tyrell Page on 10-11-2024 Glucose [Mass/Vol] 137 mg/dL High 74-106 [facility] Comment on above: MANAGEMENT OF PATIEN T CARE PER NURSING PROTOCOL Hematocrit Auto (Bld) [Volum e fraction]Ordered By: Tyrell Page on 10-11-2024 Hematocrit (Bld) [Volume fraction] 34.0 % Low 37-47 [facility] Hemoglobin measurementOrdere d By: Tyrell Page on 10-11-2024 Hemoglobin (Bld) [Mass/Vol] 11.3 g/dL Low 12.0-15.0 [facility] Immature granulocytes/100 WB C Auto (Bld)Ordered By: Tyrell Page on 10-11-2024 Immature granulocytes/100 WBC (Bld) 0.200 % 0.0-0.9 [facility] Comment on above: IG% - Immature Granu locytes (promyelocytes, myelocytes and metamyelocytes) > 1% indicates that a LEFT SHIFT is Present. MCV (mean corpuscular volume ) determinationOrdered By: Tyrell Page on 10-11-2024 MCV (RBC) [Entitic vol] 86.7 fL 81-99 [facility] Magnesiumon 10-11-2024 Magnesium [Mass/Vol] 2.1 mg/dL Normal 1.5-2.2 [facility] Comment on above: Performed By: #### L 506.1000, L100.0100, L501.9985, L500.4050 #### [facility] [address] [place], [place], [id number] Magnesium measurement (mass/ volume)Ordered By: Tyrell Page on 10-11-2024 Magnesium (Unsp spec) [Mass/Vol] 2.1 mg/dL 1.5-2.2 [facility] Mean corpuscular hemoglobin (MCH) determinationOrdered By: Tyrell Page on 10-11-2024 MCH (RBC) [Entitic mass] 28.8 pg 27.0-32.0 [facility] Mean corpuscular hemoglobin concentration (MCHC) determinationOrdered By: Tyrell Page on 10-11-2024 MCHC (RBC) [Mass/Vol] 33.2 g/dL 32-36 [facility] Mean platelet volume determi nationOrdered By: Tyrell Page on 10-11-2024 Platelet mean volume (Bld) [Entitic vol] 11.1 fL 6.2-12.0 [facility] Monocyte percentageOrdered B y: Tyrell Page on 10-11-2024 Monocytes/100 WBC (Bld) 9.8 % 0-10 [facility] Neutrophil percentageOrdered By: Tyrell Page on 10-11-2024 Neutrophils/100 WBC (Bld) 57.4 % 47-70 [facility] Nucleated red blood cell per centageOrdered By: Tyrell Page on 10-11-2024 Nucleated RBC/100 WBC (Bld) [Ratio] 0 % 0-5 [facility] Phosphoruson 10-11-2024 Phosphate [Mass/Vol] 3.7 mg/dL Normal 2.7-4.5 [facility] Comment on above: Performed By: #### L 506.1000, L100.0100, L501.9985, L500.4050 #### [facility] [address] [place], [address] Platelet countOrdered By: Arabella Page on 10-11-2024 Platelets (Bld) [#/Vol] 95 10*3/uL Low 150-450 [facility] Platelet estimateOrdered By: Tyrell Page on 10-11-2024 Platelets LM Ql (Bld) SLT DEC ADEQ [facility] Potassium measurement (mass/ volume)Ordered By: Tyrell Page on 10-11-2024 Potassium (Unsp spec) [Mass/Vol] 3.9 mmol/L 3.3-5.1 [facility] RBC Auto (Bld) [#/Vol]Ordere d By: Tyrell Page on 10-11-2024 RBC (Bld) [#/Vol] 3.92 10*6/uL Low 4.2-5.4 [facility] Serum creatinine measurement (mass/volume)Ordered By: Tyrell Page on 10-11-2024 Creatinine [Mass/Vol] 0.76 mg/dL 0.70-1.20 [facility] Serum glucose measurement (m ass/volume)Ordered By: Tyrell Page on 10-11-2024 Glucose [Mass/Vol] 131 mg/dL High 70-99 [facility] Serum or plasma calcium kim urement (mass/volume)Ordered By: Tyrell Page on 10-11-2024 Calcium [Mass/Vol] 9.2 mg/dL 7.6-11.0 [facility] Serum or plasma urea nitroge n measurement (mass/volume)Ordered By: Tyrell Page on 10-11-2024 Urea nitrogen [Mass/Vol] 21 mg/dL High 4-19 [facility] Sodium levelOrdered By: Nikunj Page on 10-11-2024 Sodium [Moles/Vol] 139 mmol/L 133-145 [facility] White blood cell (WBC) count Ordered By: Tyrell Page on 10-11-2024 WBC (Bld) [#/Vol] 4.5 10*3/uL 4.4-11.0 [facility] Bedside Glucoseon 10-10-2024 FINGERSTICK GLU 159 mg/dL High 74-106 [facility] Comment on above: Result Comment: ALINA GABRIEL OF PATIENT CARE PER NURSING PROTOCOL Performed By: #### L 500.4050, L506.1000, L100.0100, L501.9985 #### [facility] [address] [place], [address] FINGERSTICK GLU 196 mg/dL High 74-106 [facility] Comment on above: Result Comment: ALINA GEMENT OF PATIENT CARE PER NURSING PROTOCOL Performed By: #### L 500.4050, L506.1000, L100.0100, L501.9985 #### [facility] [address] [place], [address] FINGERSTICK GLU 165 mg/dL High 74-106 [facility] Comment on above: Result Comment: ALINA GEMENT OF PATIENT CARE PER NURSING PROTOCOL Performed By: #### L 501.080 #### [facility] [address] [place], [address] FINGERSTICK GLU 159 mg/dL High -106 [facility] Comment on above: Result Comment: ALINA GEMENT OF PATIENT CARE PER NURSING PROTOCOL Performed By: #### L 500.4050, L506.1000, L100.0100, L501.9985 #### [facility] [address] [place], [address] FINGERSTICK GLU 148 mg/dL High [facility]106 [facility] Comment on above: Result Comment: ALINA GEMENT OF PATIENT CARE PER NURSING PROTOCOL Performed By: #### L 500.4050, L506.1000, L100.0100, L501.9985 #### [facility] [address] [place], [address] Bilirubin, totalOrdered By: Missael Lomeli on 10-10-2024 Bilirubin [Mass/Vol] 0.68 mg/dL 0.00-1.30 [facility] CBC W/Diff, Automatedon Absolute Lymph 1.03 X10 3/uL Normal 0.83-4.51 [facility] Comment on above: Performed By: #### L 506.1000, L100.0100, L501.9985, L500.4050 #### [facility] [address] [place], [address] Absolute Neut 3.4 X10 3/uL Normal 2.0-7.7 [facility] Comment on above: Performed By: #### L 506.1000, L100.0100, L501.9985, L500.4050 #### [facility] [address] [place], [address] Basophils/100 WBC (Bld) 0.6 % Normal 0-1 [facility] Comment on above: Performed By: #### L 506.1000, L100.0100, L501.9985, L500.4050 #### [facility] [address] [place], [address] Eosinophils/100 WBC (Bld) 5.1 % High 0-5 [facility] Comment on above: Performed By: #### L 506.1000, L100.0100, L501.9985, L500.4050 #### [facility] [address] [place], [address] Erythrocyte distribution width (RBC) [Ratio] 15.9 % High 11.6-14.6 [facility] Comment on above: Performed By: #### L 506.1000, L100.0100, L501.9985, L500.4050 #### [facility] [address] [place], [address] Hematocrit (Bld) [Volume fraction] 37.6 % Normal 37-47 [facility] Comment on above: Performed By: #### L 506.1000, L100.0100, L501.9985, L500.4050 #### [facility] [address] [place], [address] Hemoglobin (Bld) [Mass/Vol] 12.3 g/dL Normal 12.0-15.0 [facility] Comment on above: Performed By: #### L 506.1000, L100.0100, L501.9985, L500.4050 #### [facility] [address] [place], [address] IG% 0.200 Normal 0.0-0.9 [facility] Comment on above: Result Comment: IG% - Immature Granulocytes (promyelocytes, myelocytes and metamyelocytes) > 1% indicates that a LEFT SHIFT is Present. Performed By: #### L 506.1000, L100.0100, L501.9985, L500.4050 #### [facility] [address] [place], [address] Lymphocytes/100 WBC (Bld) 19.6 % Normal 19-41 [facility] Comment on above: Performed By: #### L 506.1000, L100.0100, L501.9985, L500.4050 #### [facility] [address] [place], [address] MCH (RBC) [Entitic mass] 28.8 pg Normal 27.0-32.0 [facility] Comment on above: Performed By: #### L 506.1000, L100.0100, L501.9985, L500.4050 #### [facility] [address] [place], [address] MCHC (RBC) [Mass/Vol] 32.7 g/dL Normal 32-36 [facility] Comment on above: Performed By: #### L 506.1000, L100.0100, L501.9985, L500.4050 #### [facility] [address] [place], [address] MCV (RBC) [Entitic vol] 88.1 fL Normal 81-99 [facility] Comment on above: Performed By: #### L 506.1000, L100.0100, L501.9985, L500.4050 #### [facility] [address] [place], [address] Monocytes/100 WBC (Bld) 9.1 % Normal 0-10 [facility] Comment on above: Performed By: #### L 506.1000, L100.0100, L501.9985, L500.4050 #### [facility] [address] [place], [address] Neutrophils/100 WBC (Bld) 65.4 % Normal 47-70 [facility] Comment on above: Performed By: #### L 506.1000, L100.0100, L501.9985, L500.4050 #### [facility] [address] [place], [address] Nucleated RBC (Bld) [#/Vol] 0 10*3/uL Normal 0-5 [facility] Comment on above: Performed By: #### L 506.1000, L100.0100, L501.9985, L500.4050 #### [facility] [address] [place], [address] Platelet mean volume (Bld) [Entitic vol] 11.7 fL Normal 6.2-12.0 [facility] Comment on above: Performed By: #### L 506.1000, L100.0100, L501.9985, L500.4050 #### [facility] [address] [place], [address] Platelets (Bld) [#/Vol] 100 10*3/uL Low 150-450 [facility] Comment on above: Performed By: #### L 506.1000, L100.0100, L501.9985, L500.4050 #### [facility] [address] [place], [address] RBC (Bld) [#/Vol] 4.27 10*6/uL Normal 4.2-5.4 [facility] Comment on above: Performed By: #### L 506.1000, L100.0100, L501.9985, L500.4050 #### [facility] [address] [place], [address] RDW SD 51.4 fl High 35.1-43.9 [facility] Comment on above: Performed By: #### L 506.1000, L100.0100, L501.9985, L500.4050 #### [facility] [address] [place], [address] WBC (Bld) [#/Vol] 5.3 10*3/uL Normal 4.4-11.0 [facility] Comment on above: Performed By: #### L 506.1000, L100.0100, L501.9985, L500.4050 #### [facility] [address] [place], [address] Calculated very low density lipoprotein (VLDL) cholesterol measurementOrdered By: Missael Lomeli on 10-10-2024 Calculated very low density lipoprotein (VLDL) cholesterol measurement 16 mg/dL 5-40 [facility] Comprehensive Metabolic Prof ilon 10-10-2024 Albumin [Mass/Vol] 3.5 g/dL Normal 3.4-4.8 [facility] Comment on above: Performed By: #### L 500.4050, L506.1000, L100.0100, L501.9985 #### [facility] [address] [place], [address] Albumin/Globulin [Mass ratio] 1.0 {ratio} Normal 0.9-2.4 [facility] Comment on above: Performed By: #### L 500.4050, L506.1000, L100.0100, L501.9985 #### [facility] [address] [place], [address] ALK PHOS 122 U/L High 35-104 [facility] Comment on above: Performed By: #### L 500.4050, L506.1000, L100.0100, L501.9985 #### [facility] [address] [facility] [place], [address] ALT [Catalytic activity/Vol] 23 U/L Normal <=34 [facility] Comment on above: Performed By: #### L 500.4050, L506.1000, L100.0100, L501.9985 #### [facility] [address] [place], [address] AST [Catalytic activity/Vol] 37 U/L High <=31 [facility] Comment on above: Result Comment: Hemo lysis present, Results??could be affected. ?? Performed By: #### L 500.4050, L506.1000, L100.0100, L501.9985 #### [facility] [address] [place], [address] Bilirubin [Mass/Vol] 0.68 mg/dL Normal 0.00-1.30 [facility] Comment on above: Performed By: #### L 500.4050, L506.1000, L100.0100, L501.9985 #### [facility] [address] [place], [address] BUN/CRE 25.4 RATIO High 10-20 [facility] Comment on above: Performed By: #### L 500.4050, L506.1000, L100.0100, L501.9985 #### [facility] [address] [place], [address] Calcium [Mass/Vol] 8.9 mg/dL Normal 7.6-11.0 [facility] - [place] Comment on above: Performed By: #### L 500.4050, L506.1000, L100.0100, L501.9985 #### [facility] [address] [place], [address] Chloride [Moles/Vol] 106 mmol/L Normal 98-108 [facility] Comment on above: Performed By: #### L 500.4050, L506.1000, L100.0100, L501.9985 #### [facility] [address] [place], [address] CO2 [Moles/Vol] 19.0 mmol/L Low 21.0-32.0 [facility] Comment on above: Performed By: #### L 500.4050, L506.1000, L100.0100, L501.9985 #### [facility] [address] [place], [address] Creatinine [Mass/Vol] 0.78 mg/dL Normal 0.70-1.20 [facility] Comment on above: Performed By: #### L 500.4050, L506.1000, L100.0100, L501.9985 #### [facility] [address] [place], [address] ECRCL 88.83 ml/min Normal 50-250 [facility] Comment on above: Performed By: #### L 500.4050, L506.1000, L100.0100, L501.9985 #### [facility] [address] [place], [address] GAP 13 Normal 5-15 [facility] Comment on above: Performed By: #### L 500.4050, L506.1000, L100.0100, L501.9985 #### [facility] [address] [place], [address] GFR/1.73 sq M.predicted among non-blacks MDRD (S/P/Bld) [Vol rate/Area] 81 mL/min/{1.73_m2} Normal >60 [facility] Comment on above: Result Comment: mL/m in/1.73m2 CKD-EPI Creatinine Equation (2020) Performed By: #### L 500.4050, L506.1000, L100.0100, L501.9985 #### [facility] [address] [place], [address] Globulin (S) [Mass/Vol] 3.7 g/dL Normal 2.2-4.2 [facility] Comment on above: Performed By: #### L 500.4050, L506.1000, L100.0100, L501.9985 #### [facility] [address] [place], [address] Glucose [Mass/Vol] 151 mg/dL High 70-99 [facility] Comment on above: Performed By: #### L 500.4050, L506.1000, L100.0100, L501.9985 #### [facility] [address] [place], [address] Potassium [Moles/Vol] 4.3 mmol/L Normal 3.3-5.1 [facility] Comment on above: Result Comment: Hemo lysis present, Results??could be affected. ?? Performed By: #### L 500.4050, L506.1000, L100.0100, L501.9985 #### [facility] [address] [place], [address] Sodium [Moles/Vol] 138 mmol/L Normal 133-145 [facility] Comment on above: Performed By: #### L 500.4050, L506.1000, L100.0100, L501.9985 #### [facility] [address] [place], [address] T PROT 7.2 g/dL Normal 5.9-8.4 [facility] Comment on above: Performed By: #### L 500.4050, L506.1000, L100.0100, L501.9985 #### [facility] [address] [place], [address] Urea nitrogen [Mass/Vol] 20 mg/dL High 4-19 [facility] Comment on above: Performed By: #### L 500.4050, L506.1000, L100.0100, L501.9985 #### [facility] [address] [place], [address] Folate [Moles/volume] in Ser um or PlasmaOrdered By: Missael Lomeli on 10-10-2024 Folate [Moles/Vol] 7.20 ng/mL 4.60-34.80 [facility] Comment on above: Hemolysis, Results w ill be affected, Requires Recollection. Folates,Serum (Folic Acid)on 10-10-2024 FOLATES,SERUM 7.20 ng/mL Normal 4.60-34.80 [facility] Comment on above: Order Comment: 134 Result Comment: Hemo lysis, Results will be affected, Requires Recollection. Performed By: #### L 500.4050, L506.1000, L100.0100, L501.9985 #### [facility] [address] [place], [address] Hemoglobin A1con 10-10-2024 HbA1c (Bld) [Mass fraction] 7.2 % High <=5.6 [facility] Comment on above: Result Comment: Norm al < 5.7 % Prediabetic 5.7 - 6.4 % Diabetic >or= 6.5 % Please note range changes. Performed By: #### L 506.1000, L100.0100, L501.9985, L500.4050 #### [facility] [address] [place], [address] LDL calc ser/plasOrdered By: Missael Lomeli on 10-10-2024 Cholesterol in LDL [Mass/Vol] 31 mg/dL [facility] Comment on above: Scwpgxdokm=563-435 m g/dL & Higher Qthu=012 mg/dL or greater Laboratory - Chemistry and C hemistry - challengeOrdered By: Missael Lomeli on 10-10-2024 AST [Catalytic activity/Vol] 37 U/L High <32 [facility] Comment on above: Hemolysis present, R esults could be affected. Lipid Profileon 10-10-2024 CHOL:HDL 1.84 Normal [facility] Comment on above: Performed By: #### L 506.1000, L100.0100, L501.9985, L500.4050 #### [facility] [address] [place], [address] Cholesterol [Mass/Vol] 103 mg/dL Normal <=200 [facility] Comment on above: Result Comment: Chol esterol level, Desirable <200 mg/dL Borderline high cholesterol 200-239 mg/dL High cholesterol >=240 mg/dL Recommendations of the NCEP Adult Treatment Panel for the following risk-cutoff thresholds for the [place] population. Performed By: #### L 506.1000, L100.0100, L501.9985, L500.4050 #### [facility] [address] [place], [address] Cholesterol in HDL [Mass/Vol] 56 mg/dL Normal [facility] Comment on above: Result Comment: Linda onal Cholesterol Education Program (NCEP) guidelines: <40 mg/dL: Low HDL-cholesterol (major risk factor for CHD) >= 60 mg/dL: High HDL-cholesterol (negative risk factor for CHD) HDL-cholesterol is affected by a number of factors, e.g. smoking, exercise, hormones, sex and age. Performed By: #### L 506.1000, L100.0100, L501.9985, L500.4050 #### [facility] [address] [place], [address] Cholesterol in LDL [Mass/Vol] 31 mg/dL Normal [facility] Comment on above: Result Comment: Bord qhxyvk=056-284 mg/dL Higher Jvvj=315 mg/dL or greater Performed By: #### L 506.1000, L100.0100, L501.9985, L500.4050 #### [facility] [address] [place], [address] Cholesterol in VLDL [Mass/Vol] 16 mg/dL Normal 5-40 [facility] Comment on above: Performed By: #### L 506.1000, L100.0100, L501.9985, L500.4050 #### [facility] [address] [place], [address] Triglyceride [Mass/Vol] 82 mg/dL Normal [facility] Comment on above: Result Comment: The drugs N-Acetylcysteine and Metamizole may falsely depress this assay. Normal range: <150 mg/dL Borderline High: 150-199 mg/dL High: 200-499 mg/dL Very High: >500 mg/dL Performed By: #### L 506.1000, L100.0100, L501.9985, L500.4050 #### [facility] [address] [place], [address] Phosphoruson 10-10-2024 Phosphate [Mass/Vol] 3.3 mg/dL Normal 2.7-4.5 [facility] Comment on above: Performed By: #### L 506.1000, L100.0100, L501.9985, L500.4050 #### [facility] [address] [place], [address] Screening total cholesterol/ high density lipoprotein (HDL) cholesterol ratioOrdered By: Missael Lomeli on 10-10-2024 Cholesterol.total/Cho lesterol in HDL [Mass ratio] 1.84 {ratio} [facility] Serum globulin measurementOr dered By: Missael Lomeli on 10-10-2024 Globulin (S) [Mass/Vol] 3.7 g/dL 2.2-4.2 [facility] Serum or plasma alanine burnette otransferase (ALT) measurementOrdered By: Missael Lomeli on 10-10-2024 ALT [Catalytic activity/Vol] 23 U/L <35 [facility] Serum or plasma albumin kim urement (mass/volume)Ordered By: Missael Lomeli on 10-10-2024 Albumin [Mass/Vol] 3.5 g/dL 3.4-4.8 [facility] Serum or plasma albumin/glob ulin mass ratioOrdered By: Missael Lomeli on 10-10-2024 Albumin/Globulin [Mass ratio] 1.0 {ratio} 0.9-2.4 [facility] Serum or plasma alkaline regina sphatase measurementOrdered By: Missael Lomeli on 10-10-2024 ALP [Catalytic activity/Vol] 122 U/L High 35-104 [facility] Serum or plasma cholesterol in HDL measurement (mass/volume)Ordered By: Missael Lomeli on 10-10-2024 Cholesterol in HDL [Mass/Vol] 56 mg/dL >40 [facility] Comment on above: National Cholesterol Education Program (NCEP) guidelines:<40 mg/dL: Low HDL-cholesterol (major risk factor for CHD)>= 60 mg/dL: High HDL-cholesterol (negative risk factor for CHD)HDL-cholesterol is affected by a number of factors, e.g. smoking, exercise, hormones, sex and age. Serum or plasma cholesterol measurement (mass/volume)Ordered By: Missael Lomeli on 10-10-2024 Cholesterol [Mass/Vol] 103 mg/dL <201 [facility] Comment on above: Cholesterol level, D esirable <200 mg/dLBorderline high cholesterol 200-239 mg/dLHigh cholesterol >=240 mg/dLRecommendations of the NCEP Adult Treatment Panel for the following risk-cutoff thresholds for the [place] population. Total proteinOrdered By: Enrrique Lomeli on 10-10-2024 Protein [Mass/Vol] 7.2 g/dL 5.9-8.4 [facility] Triglycerides measurementOrd ered By: Missael Lomeli on 10-10-2024 Triglyceride [Mass/Vol] 82 mg/dL <199 [facility] Comment on above: The drugs N-Acetylcy steine and Metamizole may falsely depress this assay. Normal range: <150 mg/dLBorderline High: 150-199 mg/dLHigh: 200-499 mg/dLVery High: >500 mg/dL Absolute lymphocyte countOrd ered By: Shayna Malhotra on 10-09-2024 Lymphocytes Auto (Unsp spec) [#/Vol] 0.97 10*3/uL 0.83-4.51 [facility] Absolute neutrophil countOrd ered By: Dany Richardson on 10-09-2024 Neutrophils (Bld) [#/Vol] 4.9 10*3/uL 2.0-7.7 [facility] Absolute neutrophil countOrd ered By: Shayna Malhotra on 10-09-2024 Neutrophils (Bld) [#/Vol] 4.4 10*3/uL 2.0-7.7 [facility] Alcohol, Blood (Medical)-Ser umon 10-09-2024 SERUM ETOH < 10.1 Normal <=10.0 [facility] Comment on above: Result Comment: This test is for medical purposes only. The legal definition of intoxication varies according to local law. Performed By: #### L 500.4050, L506.1000, L100.0100, L501.9985 #### [facility] [address] [place], [place], [address] Amorphous sediment detection in urine sediment by light microscopyOrdered By: Dany Richardson on 10-09-2024 Amorphous sediment LM Ql (Urine sed) 1+ [facility] Amphetamine detection with 1 000 ng/mL as cutoffOrdered By: Missael Lomeli on 10-09-2024 Amphetamines Screen method >1000 ng/mL Ql (U) Negative < 200 ng/mL [facility] Anion gap in Serum or Plasma Ordered By: Dany Richardson on 10-09-2024 Anion gap [Moles/Vol] 11 mmol/L 10-18 [facility] Anion gap in Serum or Plasma Ordered By: Shayna Malhotra on 10-09-2024 Anion gap [Moles/Vol] 12 mmol/L 10-18 [facility] Automated lymphocyte count a s percentage of total leukocytesOrdered By: Shayna Malhotra on 10-09-2024 Lymphocytes/100 WBC Auto (Unsp spec) 16.1 % Low 19-41 [facility] BUN/creatinine ratioOrdered By: Dany Richardson on 10-09-2024 Urea nitrogen/Creatinine [Mass ratio] 26.6 mg/mg High 10-20 [facility] BUN/creatinine ratioOrdered By: Shayna Malhotra on 10-09-2024 Urea nitrogen/Creatinine [Mass ratio] 25.9 mg/mg High 10-20 [facility] Basophil percentageOrdered B y: Dany Richardson on 10-09-2024 Basophils/100 WBC (Bld) 0.4 % 0-1 [facility] Basophil percentageOrdered B y: Shayna Malhotra on 10-09-2024 Basophils/100 WBC (Bld) 0.5 % 0-1 [facility] Bilirubin Test strip Ql (U)O rdered By: Dany Richardson on 10-09-2024 Bilirubin Ql (U) Negative Negative [facility] Bilirubin, totalOrdered By: Dany Richardson on 10-09-2024 Bilirubin [Mass/Vol] 0.67 mg/dL 0.00-1.30 [facility] Bilirubin, totalOrdered By: Shayna Malhotra on 10-09-2024 Bilirubin [Mass/Vol] 0.62 mg/dL 0.00-1.30 [facility] CBC W/Diff, Automatedon Absolute Lymph 1.11 X10 3/uL Normal 0.83-4.51 [facility] Comment on above: Performed By: #### L 506.1000, L100.0100, L501.9985, L500.4050 #### [facility] [address] [place], [address] Absolute Neut 4.9 X10 3/uL Normal 2.0-7.7 [facility] Comment on above: Performed By: #### L 506.1000, L100.0100, L501.9985, L500.4050 #### [facility] [address] [place], [address] Basophils/100 WBC (Bld) 0.4 % Normal 0-1 [facility] Comment on above: Performed By: #### L 506.1000, L100.0100, L501.9985, L500.4050 #### [facility] [address] [place], [address] Eosinophils/100 WBC (Bld) 2.5 % Normal 0-5 [facility] Comment on above: Performed By: #### L 506.1000, L100.0100, L501.9985, L500.4050 #### [facility] [address] [place], [address] Erythrocyte distribution width (RBC) [Ratio] 15.9 % High 11.6-14.6 [facility] Comment on above: Performed By: #### L 506.1000, L100.0100, L501.9985, L500.4050 #### [facility] [address] [place], [address] Hematocrit (Bld) [Volume fraction] 40.8 % Normal 37-47 [facility] Comment on above: Performed By: #### L 506.1000, L100.0100, L501.9985, L500.4050 #### [facility] [address] [place], [address] Hemoglobin (Bld) [Mass/Vol] 13.5 g/dL Normal 12.0-15.0 [facility] Comment on above: Performed By: #### L 506.1000, L100.0100, L501.9985, L500.4050 #### [facility] [address] [place], [address] IG% 0.400 Normal 0.0-0.9 [facility] Comment on above: Result Comment: IG% - Immature Granulocytes (promyelocytes, myelocytes and metamyelocytes) > 1% indicates that a LEFT SHIFT is Present. Performed By: #### L 506.1000, L100.0100, L501.9985, L500.4050 #### [facility] [address] [place], [address] Lymphocytes/100 WBC (Bld) 16.3 % Low 19-41 [facility] Comment on above: Performed By: #### L 506.1000, L100.0100, L501.9985, L500.4050 #### [facility] [address] [place], [address] MCH (RBC) [Entitic mass] 28.9 pg Normal 27.0-32.0 [facility] Comment on above: Performed By: #### L 506.1000, L100.0100, L501.9985, L500.4050 #### [facility] [address] [place], [address] MCHC (RBC) [Mass/Vol] 33.1 g/dL Normal 32-36 [facility] Comment on above: Performed By: #### L 506.1000, L100.0100, L501.9985, L500.4050 #### [facility] [address] [place], [address] MCV (RBC) [Entitic vol] 87.4 fL Normal 81-99 [facility] Comment on above: Performed By: #### L 506.1000, L100.0100, L501.9985, L500.4050 #### [facility] [address] [place], [address] Monocytes/100 WBC (Bld) 8.3 % Normal 0-10 [facility] Comment on above: Performed By: #### L 506.1000, L100.0100, L501.9985, L500.4050 #### [facility] [address] [place], [address] Neutrophils/100 WBC (Bld) 72.1 % High 47-70 [facility] Comment on above: Performed By: #### L 506.1000, L100.0100, L501.9985, L500.4050 #### [facility] [address] [place], [address] Nucleated RBC (Bld) [#/Vol] 0 10*3/uL Normal 0-5 [facility] Comment on above: Performed By: #### L 506.1000, L100.0100, L501.9985, L500.4050 #### [facility] [address] [place], [address] Platelet mean volume (Bld) [Entitic vol] 11.8 fL Normal 6.2-12.0 [facility] Comment on above: Performed By: #### L 506.1000, L100.0100, L501.9985, L500.4050 #### [facility] [address] [place], [address] Platelets (Bld) [#/Vol] 106 10*3/uL Low 150-450 [facility] Comment on above: Performed By: #### L 506.1000, L100.0100, L501.9985, L500.4050 #### [facility] [address] [place], [address] RBC (Bld) [#/Vol] 4.67 10*6/uL Normal 4.2-5.4 [facility] Comment on above: Performed By: #### L 506.1000, L100.0100, L501.9985, L500.4050 #### [facility] [address] [place], [address] RDW SD 51.0 fl High 35.1-43.9 [facility] Comment on above: Performed By: #### L 506.1000, L100.0100, L501.9985, L500.4050 #### [facility] [address] [place], [address] WBC (Bld) [#/Vol] 6.8 10*3/uL Normal 4.4-11.0 [facility] Comment on above: Performed By: #### L 506.1000, L100.0100, L501.9985, L500.4050 #### [facility] [address] [place], [address] Absolute Lymph 0.97 X10 3/uL Normal 0.83-4.51 [facility] Comment on above: Order Comment: 134 Performed By: #### L 500.4050, L506.1000, L100.0100, L501.9985 #### [facility] [address] [place], [address] Absolute Neut 4.4 X10 3/uL Normal 2.0-7.7 [facility] Comment on above: Order Comment: 134 Performed By: #### L 500.4050, L506.1000, L100.0100, L501.9985 #### [facility] [address] [place], [address] Basophils/100 WBC (Bld) 0.5 % Normal 0-1 [facility] Comment on above: Order Comment: 134 Performed By: #### L 500.4050, L506.1000, L100.0100, L501.9985 #### [facility] [address] [place], [address] Eosinophils/100 WBC (Bld) 1.2 % Normal 0-5 [facility] Comment on above: Order Comment: 134 Performed By: #### L 500.4050, L506.1000, L100.0100, L501.9985 #### [facility] [address] [place], [address] Erythrocyte distribution width (RBC) [Ratio] 15.7 % High 11.6-14.6 [facility] Comment on above: Order Comment: 134 Performed By: #### L 500.4050, L506.1000, L100.0100, L501.9985 #### [facility] [address] [place], [address] Hematocrit (Bld) [Volume fraction] 40.9 % Normal 37-47 [facility] Comment on above: Order Comment: 134 Performed By: #### L 500.4050, L506.1000, L100.0100, L501.9985 #### [facility] [address] [place], [address] Hemoglobin (Bld) [Mass/Vol] 13.5 g/dL Normal 12.0-15.0 [facility] Comment on above: Order Comment: 134 Performed By: #### L 500.4050, L506.1000, L100.0100, L501.9985 #### [facility] [address] [place], [address] IG% 0.300 Normal 0.0-0.9 [facility] Comment on above: Order Comment: 134 Result Comment: IG% - Immature Granulocytes (promyelocytes, myelocytes and metamyelocytes) > 1% indicates that a LEFT SHIFT is Present. Performed By: #### L 500.4050, L506.1000, L100.0100, L501.9985 #### [facility] [address] [place], [address] Lymphocytes/100 WBC (Bld) 16.1 % Low 19-41 [facility] Comment on above: Order Comment: 134 Performed By: #### L 500.4050, L506.1000, L100.0100, L501.9985 #### [facility] [address] [place], [address] MCH (RBC) [Entitic mass] 28.8 pg Normal 27.0-32.0 [facility] Comment on above: Order Comment: 134 Performed By: #### L 500.4050, L506.1000, L100.0100, L501.9985 #### [facility] [address] [place], [address] MCHC (RBC) [Mass/Vol] 33.0 g/dL Normal 32-36 [facility] Comment on above: Order Comment: 134 Performed By: #### L 500.4050, L506.1000, L100.0100, L501.9985 #### [facility] [address] [place], [address] MCV (RBC) [Entitic vol] 87.4 fL Normal 81-99 [facility] Comment on above: Order Comment: 134 Performed By: #### L 500.4050, L506.1000, L100.0100, L501.9985 #### [facility] [address] [place], [address] Monocytes/100 WBC (Bld) 8.4 % Normal 0-10 [facility] Comment on above: Order Comment: 134 Performed By: #### L 500.4050, L506.1000, L100.0100, L501.9985 #### [facility] [address] [place], [address] Neutrophils/100 WBC (Bld) 73.5 % High 47-70 [facility] Comment on above: Order Comment: 134 Performed By: #### L 500.4050, L506.1000, L100.0100, L501.9985 #### [facility] [address] [place], [address] Nucleated RBC (Bld) [#/Vol] 0 10*3/uL Normal 0-5 [facility] Comment on above: Order Comment: 134 Performed By: #### L 500.4050, L506.1000, L100.0100, L501.9985 #### [facility] [address] [place], [address] Platelet mean volume (Bld) [Entitic vol] 10.8 fL Normal 6.2-12.0 [facility] Comment on above: Order Comment: 134 Performed By: #### L 500.4050, L506.1000, L100.0100, L501.9985 #### [facility] [address] [place], [address] Platelets (Bld) [#/Vol] 107 10*3/uL Low 150-450 [facility] Comment on above: Order Comment: 134 Performed By: #### L 500.4050, L506.1000, L100.0100, L501.9985 #### [facility] [address] [place], [address] RBC (Bld) [#/Vol] 4.68 10*6/uL Normal 4.2-5.4 [facility] Comment on above: Order Comment: 134 Performed By: #### L 500.4050, L506.1000, L100.0100, L501.9985 #### [facility] [address] [place], [address] RDW SD 50.2 fl High 35.1-43.9 [facility] Comment on above: Order Comment: 134 Performed By: #### L 500.4050, L506.1000, L100.0100, L501.9985 #### [facility] [address] [place], [address] WBC (Bld) [#/Vol] 6.0 10*3/uL Normal 4.4-11.0 [facility] Comment on above: Order Comment: 134 Performed By: #### L 500.4050, L506.1000, L100.0100, L501.9985 #### [facility] [address] [place], [address] CRPon 10-09-2024 C-REACTIVE PROT 5.92 mg/L High 0.0-3.0 [facility] Comment on above: Performed By: #### L 500.4050, L506.1000, L100.0100, L501.9985 #### [facility] [address] [place], [address] Carbon dioxide, total [Moles /volume] in Central venous bloodOrdered By: Dany Richardson on 10-09-2024 CO2 [Moles/Vol] 21.0 mmol/L 21.0-32.0 [facility] Carbon dioxide, total [Moles /volume] in Central venous bloodOrdered By: Shayna Malhotra on 10-09-2024 CO2 [Moles/Vol] 22.6 mmol/L 21.0-32.0 [facility] Chloride assayOrdered By: Nolan Richardson on 10-09-2024 Chloride [Moles/Vol] 106 mmol/L 98-108 [facility] Chloride assayOrdered By: Maryanne Malhotra on 10-09-2024 Chloride [Moles/Vol] 104 mmol/L 98-108 [facility] Comprehensive Metabolic Prof ilon 10-09-2024 Albumin [Mass/Vol] 3.8 g/dL Normal 3.4-4.8 [facility] Comment on above: Performed By: #### L 506.1000, L100.0100, L501.9985, L500.4050 #### [facility] [address] [place], [address] Albumin/Globulin [Mass ratio] 0.8 {ratio} Low 0.9-2.4 [facility] Comment on above: Performed By: #### L 506.1000, L100.0100, L501.9985, L500.4050 #### [facility] [address] [place], [address] ALK PHOS 135 U/L High 35-104 [facility] Comment on above: Performed By: #### L 506.1000, L100.0100, L501.9985, L500.4050 #### [facility] [address] [place], [address] ALT [Catalytic activity/Vol] 23 U/L Normal <=34 [facility] Comment on above: Performed By: #### L 506.1000, L100.0100, L501.9985, L500.4050 #### [facility] [address] [place], [address] AST [Catalytic activity/Vol] 40 U/L High <=31 [facility] Comment on above: Result Comment: Hemo lysis present, Results??could be affected. ?? Performed By: #### L 506.1000, L100.0100, L501.9985, L500.4050 #### [facility] [address] [place], [address] Bilirubin [Mass/Vol] 0.67 mg/dL Normal 0.00-1.30 [facility] Comment on above: Performed By: #### L 506.1000, L100.0100, L501.9985, L500.4050 #### [facility] [address] [place], [address] BUN/CRE 26.6 RATIO High 10-20 [facility] Comment on above: Performed By: #### L 506.1000, L100.0100, L501.9985, L500.4050 #### [facility] [address] [place], [address] Calcium [Mass/Vol] 9.7 mg/dL Normal 7.6-11.0 [facility] [facility] Comment on above: Performed By: #### L 506.1000, L100.0100, L501.9985, L500.4050 #### [facility] [address] [place], [address] Chloride [Moles/Vol] 106 mmol/L Normal 98-108 [facility] Comment on above: Performed By: #### L 506.1000, L100.0100, L501.9985, L500.4050 #### [facility] [address] [place], [address] CO2 [Moles/Vol] 21.0 mmol/L Normal 21.0-32.0 [facility] Comment on above: Performed By: #### L 506.1000, L100.0100, L501.9985, L500.4050 #### [facility] [address] [place], [address] Creatinine [Mass/Vol] 0.88 mg/dL Normal 0.70-1.20 [facility] Comment on above: Performed By: #### L 506.1000, L100.0100, L501.9985, L500.4050 #### [facility] [address] [place], [address] ECRCL 81.27 ml/min Normal 50-250 [facility] Comment on above: Performed By: #### L 506.1000, L100.0100, L501.9985, L500.4050 #### [facility] [address] [place], [address] GAP 11 Normal 5-15 [facility] Comment on above: Performed By: #### L 506.1000, L100.0100, L501.9985, L500.4050 #### [facility] [address] [place], [address] GFR/1.73 sq M.predicted among non-blacks MDRD (S/P/Bld) [Vol rate/Area] 70 mL/min/{1.73_m2} Normal >60 [facility] Comment on above: Result Comment: mL/m in/1.73m2 CKD-EPI Creatinine Equation (2020) Performed By: #### L 506.1000, L100.0100, L501.9985, L500.4050 #### [facility] [address] [place], [address] Globulin (S) [Mass/Vol] 4.6 g/dL High 2.2-4.2 [facility] Comment on above: Performed By: #### L 506.1000, L100.0100, L501.9985, L500.4050 #### [facility] [address] [place], [address] Glucose [Mass/Vol] 138 mg/dL High 70-99 [facility] Comment on above: Performed By: #### L 506.1000, L100.0100, L501.9985, L500.4050 #### [facility] [address] [place], [address] Potassium [Moles/Vol] 4.5 mmol/L Normal 3.3-5.1 [facility] Comment on above: Result Comment: Hemo lysis present, Results??could be affected. ?? Performed By: #### L 506.1000, L100.0100, L501.9985, L500.4050 #### [facility] [address] [place], [address] Sodium [Moles/Vol] 138 mmol/L Normal 133-145 [facility] Comment on above: Performed By: #### L 506.1000, L100.0100, L501.9985, L500.4050 #### [facility] [address] [place], [address] T PROT 8.4 g/dL Normal 5.9-8.4 [facility] Comment on above: Performed By: #### L 506.1000, L100.0100, L501.9985, L500.4050 #### [facility] [address] [place], [address] Urea nitrogen [Mass/Vol] 23 mg/dL High 4-19 [facility] Comment on above: Performed By: #### L 506.1000, L100.0100, L501.9985, L500.4050 #### [facility] [address] [place], [address] Albumin [Mass/Vol] 4.0 g/dL Normal 3.4-4.8 [facility] Comment on above: Order Comment: 134 Performed By: #### L 500.4050, L506.1000, L100.0100, L501.9985 #### [facility] [address] [place], [address] Albumin/Globulin [Mass ratio] 0.8 {ratio} Low 0.9-2.4 [facility] Comment on above: Order Comment: 134 Performed By: #### L 500.4050, L506.1000, L100.0100, L501.9985 #### [facility] [address] [place], [address] ALK PHOS 148 U/L High 35-104 [facility] Comment on above: Order Comment: 134 Performed By: #### L 500.4050, L506.1000, L100.0100, L501.9985 #### [facility] [address] [place], [address] ALT [Catalytic activity/Vol] 26 U/L Normal <=34 [facility] Comment on above: Order Comment: 134 Performed By: #### L 500.4050, L506.1000, L100.0100, L501.9985 #### [facility] [address] [place], [address] AST [Catalytic activity/Vol] 37 U/L High <=31 [facility] Comment on above: Order Comment: 134 Performed By: #### L 500.4050, L506.1000, L100.0100, L501.9985 #### [facility] [address] [place], [address] Bilirubin [Mass/Vol] 0.62 mg/dL Normal 0.00-1.30 [facility] Comment on above: Order Comment: 134 Performed By: #### L 500.4050, L506.1000, L100.0100, L501.9985 #### [facility] [address] [place], [address] BUN/CRE 25.9 RATIO High 10-20 [facility] Comment on above: Order Comment: 134 Performed By: #### L 500.4050, L506.1000, L100.0100, L501.9985 #### [facility] [address] [place], [address] Calcium [Mass/Vol] 9.6 mg/dL Normal 7.6-11.0 [facility] Comment on above: Order Comment: 134 Performed By: #### L 500.4050, L506.1000, L100.0100, L501.9985 #### [facility] [address] [place], [address] Chloride [Moles/Vol] 104 mmol/L Normal 98-108 [facility] Comment on above: Order Comment: 134 Performed By: #### L 500.4050, L506.1000, L100.0100, L501.9985 #### [facility] [address] [place], [address] CO2 [Moles/Vol] 22.6 mmol/L Normal 21.0-32.0 [facility] Comment on above: Order Comment: 134 Performed By: #### L 500.4050, L506.1000, L100.0100, L501.9985 #### [facility] [address] [place], [address] Creatinine [Mass/Vol] 0.82 mg/dL Normal 0.70-1.20 [facility] Comment on above: Order Comment: 134 Performed By: #### L 500.4050, L506.1000, L100.0100, L501.9985 #### [facility] [address] [place], [address] GAP 12 Normal 5-15 [facility] Comment on above: Order Comment: 134 Performed By: #### L 500.4050, L506.1000, L100.0100, L501.9985 #### [facility] [address] [place], [address] GFR/1.73 sq M.predicted among non-blacks MDRD (S/P/Bld) [Vol rate/Area] 76 mL/min/{1.73_m2} Normal >60 [facility] Comment on above: Order Comment: 134 Result Comment: mL/m in/1.73m2 CKD-EPI Creatinine Equation (2020) Performed By: #### L 500.4050, L506.1000, L100.0100, L501.9985 #### [facility] [address] [place], [address] Globulin (S) [Mass/Vol] 4.8 g/dL High 2.2-4.2 [facility] Comment on above: Order Comment: 134 Performed By: #### L 500.4050, L506.1000, L100.0100, L501.9985 #### [facility] [address] [place], [address] Glucose [Mass/Vol] 173 mg/dL High 70-99 [facility] Comment on above: Order Comment: 134 Performed By: #### L 500.4050, L506.1000, L100.0100, L501.9985 #### [facility] [address] [place], [address] Potassium [Moles/Vol] 4.2 mmol/L Normal 3.3-5.1 [facility] Comment on above: Order Comment: 134 Performed By: #### L 500.4050, L506.1000, L100.0100, L501.9985 #### [facility] [address] [place], [address] Sodium [Moles/Vol] 138 mmol/L Normal 133-145 [facility] Comment on above: Order Comment: 134 Performed By: #### L 500.4050, L506.1000, L100.0100, L501.9985 #### [facility] [address] [place], [address] T PROT 8.9 g/dL High 5.9-8.4 [facility] Comment on above: Order Comment: 134 Performed By: #### L 500.4050, L506.1000, L100.0100, L501.9985 #### [facility] [address] [place], [address] Urea nitrogen [Mass/Vol] 21 mg/dL High 4-19 [facility] Comment on above: Order Comment: 134 Performed By: #### L 500.4050, L506.1000, L100.0100, L501.9985 #### [facility] [address] [place], [address] Emergency Department Summary on 10-09-2024 Emergency Department Summary [facility] Medical Records Department [address] [place] [address] Emergency Department Summary 10/09/24 MR#: [id number] Acct: [id number] Name: VIDA NINA Rep #: [id number] : 1950 73 From: Dany Richardson MD PCP: Dr. Shayna Malhotra MD Status:REG ER Location: ED HPI History of Present Illness Chief Complaint: Lower Extremity Injury Narrative Narrative: 73-year-old female states that she had pins placed in her left foot approximately 15 years ago [place] after breaking her heel. She is currently in [facility]. She states for the last 2 weeks she has been having increasing foot pain. She states that on Tuesday, probably of the last week, she had x-rays obtained at the [facility]. She went and saw Dr. Shayna Malhotra on Tuesday, but he did not have the x-ray results. She states that she is having a lot of pain in her left heel that is worse with weightbearing and walking and palpation. She states that it feels as if she is having a baby out of her left heel. [facility] Medical History Obesity Anxiety Cancer Anxiety [...] History powder primary doctor blood sugar diagnostic [facility] Unknown History Lite Strips) blood-glucose meter [facility] Unknown History Lite Meter kit) [facility]ets [facility] Unknown History Lancets) nystatin 100,000 unit/gram topical 1 applic topical TID #0 grams Unknown Rx powder ([facility]) quetiapine 100 mg tablet 300 [...] Reaction Status Date / Time ciprofloxacin (From [facility]) Allergy Mild Anaphylaxis Verified 10/09/24 16:55 [...] ROS Narrative (more content not included)... Normal [facility] Eosinophil percentageOrdered By: Dany Richardson on 10-09-2024 Eosinophils/100 WBC (Bld) 2.5 % 0-5 [facility] Eosinophil percentageOrdered By: Shayna Malhotra on 10-09-2024 Eosinophils/100 WBC (Bld) 1.2 % 0-5 [facility] Epithelial cells.squamous LM Ql (Urine sed)Ordered By: Dany Richardson on 10-09-2024 Epithelial cells.squamous LM.HPF (Urine sed) [#/Area] 0 /[HPF] 5-10 [facility] Erythrocyte Sed Rateon 10-09 SED RATE 49 mm/hr High 0-30 [facility] Comment on above: Performed By: #### L 500.4050, L506.1000, L100.0100, L501.9985 #### [facility] [address] [place], [address] Erythrocyte distribution wid th (RBC) [Ratio]Ordered By: Dany Richardson on 10-09-2024 Erythrocyte distribution width (RBC) [Entitic vol] 51.0 fL High 35.1-43.9 [facility] Erythrocyte distribution wid th (RBC) [Ratio]Ordered By: Shayna Malhotra on 10-09-2024 Erythrocyte distribution width (RBC) [Entitic vol] 50.2 fL High 35.1-43.9 [facility] Erythrocyte distribution wid th ratioOrdered By: Dany Richardson on 10-09-2024 Erythrocyte distribution width (RBC) [Ratio] 15.9 % High 11.6-14.6 [facility] Erythrocyte distribution wid th ratioOrdered By: Shayna Malhotra on 10-09-2024 Erythrocyte distribution width (RBC) [Ratio] 15.7 % High 11.6-14.6 [facility] Erythrocyte distribution wid th standard deviationOrdered By: Shayna Malhotra on 10-09-2024 Erythrocyte distribution width (RBC) [Ratio] 50.2 fl High 35.1-43.9 [facility] Erythrocyte sedimentation ra teOrdered By: Missael Lomeli on 10-09-2024 ESR (Bld) [Velocity] 49 mm/h High 0-30 [facility] Estimation of creatinine silvana aranceOrdered By: Dany Richardson on 10-09-2024 Estimated Creatinine Clearance Calc 81.27 ml/min 50-250 [facility] Extremity Lower without Cont raon 10-09-2024 Extremity Lower without Contra [facility] [address] [place] [address] Extremity Lower without Contra MR#: [id number] Acct: [id number] Name: VIDA NINA Breann Rep #: [id number] : 1950 F 73 From: Saul Sanchez MD PCP: Dr. Shayna Malhotra MD Status: ADM IN Study: Extremity Lower without Contra Date of Exam: 0 10/09/24 Exam# [id number] Ordering Dr: Missael Hernandez DO PROCEDURE: EXTREMITY [...] Hernandez at 2:20 a.m. 10/10/2024 Reading Location: [facility] CC: Dr. Missael Hernandez DO; Dr. Shayna Malhotra MD Medical Coding Technician: Signed Normal [facility] Foot min 3 Viewson 5 Foot min 3 Views [facility] [address] [place] [address] Foot min 3 Views MR#: [id number] Acct: [id number] Name: VIDA NINA Rep #: [id number] : 1950 F 73 From: Alok Jiménez MD PCP: Dr. Shayna Malhotra MD Status: REG ER Study: Foot min 3 Views Date of Exam: 10/09/24 Exam# [id number] Ordering Dr: Dany Richardson MD EXAM: LEFT [...] Dany Richardson MD; Dr. Shayna Malhotra MD Medical Coding Technician: Signed Normal [facility] GFR/1.73 sq M.predicted saida g non-blacks MDRD (S/P/Bld) [Vol rate/Area]Ordered By: Dany Richardson on 10-09-2024 Estimated GFR (MDRD) Non-Af Amer 70 >60 [facility] Comment on above: mL/min/1.73m2 CKD-EP I Creatinine Equation (2020) GFR/1.73 sq M.predicted saida g non-blacks MDRD (S/P/Bld) [Vol rate/Area]Ordered By: Shayna Malhotra on 10-09-2024 Estimated GFR (MDRD) Non-Af Amer 76 >60 [facility] Comment on above: mL/min/1.73m2 CKD-EP I Creatinine Equation (2020) Glomerular filtration rate ( GFR) estimation/1.73 sq m using serum, plasma, or whole bOrdered By: Shayna Malhotra on 10-09-2024 GFR/1.73 sq M.predicted among non-blacks MDRD (S/P/Bld) [Vol rate/Area] 76 mL/min/{1.73_m2} >60 [facility] Comment on above: mL/min/1.73m2 CKD-EP I Creatinine Equation (2020) Glucose Ql (U)Ordered By: Nolan Richardson on 10-09-2024 Glucose (U) [Mass/Vol] 1000 mg/dL High Normal [facility] H AND P Exam - [facility] 10-09-2024 H&P Exam - Hospitalist [facility] Medical Records Department [address] [place] [address] H P Exam - Hospitalist 10/09/242118 MR#: [id number] Acct: [id number] Name: VIDA NINA Rep #: [id number] : 1950 73 From: Missael Hernandez DO PCP: Dr. 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 [facility] Medical History Obesity Anxiety Cancer Anxiety Diabetes [...] History powder primary doctor blood sugar diagnostic [facility] Unknown History Lite Strips) blood-glucose meter ([facility] Unknown History Lite Meter kit) lancets [facility] Unknown History Lancets) nystatin 100,000 unit/gram topical 1 applic topical TID #0 grams Unknown Rx powder ([facility]) quetiapine 100 mg tablet 300 mg (3 x 100 mg) PO BID #0 tabs 11/24/21 Unknown Rx aspirin 81 mg chewable tablet 81 mg PO DAILY 05/06/22 Unknown Hi (more content not included)... Normal [facility] Hematocrit Auto (Bld) [Volum e fraction]Ordered By: Dany Richardson on 10-09-2024 Hematocrit (Bld) [Volume fraction] 40.8 % [address] [place] [address] Hematocrit Auto (Bld) [Volum e fraction]Ordered By: Shayna Malhotra on 10-09-2024 Hematocrit (Bld) [Volume fraction] 40.9 % [address] [place] [address] Hemoglobin A1con 10-09-2024 HbA1c (Bld) [Mass fraction] 7.2 % High <=5.6 [facility] Comment on above: Order Comment: 134 Result Comment: Norm al < 5.7 % Prediabetic 5.7 - 6.4 % Diabetic >or= 6.5 % Please note range changes. Performed By: #### L 500.4050, L506.1000, L100.0100, L501.9985 #### [facility] [address] [place], [place], [address] Hemoglobin A1c percentageOrd ered By: Missael Lomeli on 10-09-2024 HbA1c (Bld) [Mass fraction] 7.2 % High <5.7 [facility] Comment on above: Normal < 5.7 % Predi abetic 5.7 - 6.4 % Diabetic >or= 6.5 % Please note range changes. Hemoglobin A1c percentageOrd ered By: Shayna Malhotra on 10-09-2024 HbA1c (Bld) [Mass fraction] 7.2 % High <5.7 [facility] Comment on above: Normal < 5.7 % Predi abetic 5.7 - 6.4 % Diabetic >or= 6.5 % Please note range changes. Hemoglobin measurementOrdere d By: Dany Richardson on 10-09-2024 Hemoglobin (Bld) [Mass/Vol] 13.5 g/dL 12.0-15.0 [facility] Hemoglobin measurementOrdere d By: Shayna Malhotra on 10-09-2024 Hemoglobin (Bld) [Mass/Vol] 13.5 g/dL 12.0-15.0 [facility] Immature granulocytes/100 WB C Auto (Bld)Ordered By: Dany Richardson on 10-09-2024 Immature granulocytes/100 WBC (Bld) 0.400 % 0.0-0.9 [facility] Comment on above: IG% - Immature Granu locytes (promyelocytes, myelocytes and metamyelocytes) > 1% indicates that a LEFT SHIFT is Present. Immature granulocytes/100 WB C Auto (Bld)Ordered By: Shayna Malhotra on 10-09-2024 Immature granulocytes/100 WBC (Bld) 0.300 % 0.0-0.9 [facility] Comment on above: IG% - Immature Granu locytes (promyelocytes, myelocytes and metamyelocytes) > 1% indicates that a LEFT SHIFT is Present. Ketones Test strip Ql (U)Ord ered By: Dany Richardson on 10-09-2024 Ketones Ql (U) Negative Negative [facility] - Chemistry and C hemistry - challengeOrdered By: Dany Richardson on 10-09-2024 AST [Catalytic activity/Vol] 40 U/L High <32 [facility] Comment on above: Hemolysis present, R esults could be affected. Laboratory - Chemistry and C hemistry - challengeOrdered By: Shayna Malhotra on 10-09-2024 AST [Catalytic activity/Vol] 37 U/L High <32 [facility] Lymphocytes Auto (Unsp spec) [#/Vol]Ordered By: Dany Richardson on 10-09-2024 Lymphocytes (Bld) [#/Vol] 1.11 10*3/uL 0.83-4.51 [facility] Lymphocytes Auto (Unsp spec) [#/Vol]Ordered By: Shayna Malhotra on 10-09-2024 Lymphocytes (Bld) [#/Vol] 0.97 10*3/uL 0.83-4.51 [facility] Lymphocytes/100 WBC Auto (Un sp spec)Ordered By: Dany Richardson on 10-09-2024 Lymphocytes/100 WBC (Bld) 16.3 % Low 19-41 [facility] Lymphocytes/100 WBC Auto (Un sp spec)Ordered By: Shayna Malhotra on 10-09-2024 Lymphocytes/100 WBC (Bld) 16.1 % Low - [facility] MCV (mean corpuscular volume ) determinationOrdered By: Dany Richardson on 10-09-2024 MCV (RBC) [Entitic vol] 87.4 fL 81-99 [facility] MCV (mean corpuscular volume ) determinationOrdered By: Shayna Malhotra on 10-09-2024 MCV (RBC) [Entitic vol] 87.4 fL 81-99 [facility] Magnesiumon 10-09-2024 Magnesium [Mass/Vol] 2.1 mg/dL Normal 1.5-2.2 [facility] Comment on above: Performed By: #### L 500.4050, L506.1000, L100.0100, L501.9985 #### [facility] [address] [place] [address], [id number] Mean corpuscular hemoglobin (MCH) determinationOrdered By: Dany Richardson on 10-09-2024 MCH (RBC) [Entitic mass] 28.9 pg 27.0-32.0 [facility] Mean corpuscular hemoglobin (MCH) determinationOrdered By: Shayna Malhotra on 10-09-2024 MCH (RBC) [Entitic mass] 28.8 pg 27.0-32.0 [facility] Mean corpuscular hemoglobin concentration (MCHC) determinationOrdered By: Dany Richardson on 10-09-2024 MCHC (RBC) [Mass/Vol] 33.1 g/dL - [facility] Mean corpuscular hemoglobin concentration (MCHC) determinationOrdered By: Shayna Malhotra on 10-09-2024 MCHC (RBC) [Mass/Vol] 33.0 g/dL -36 [facility] Mean platelet volume determi nationOrdered By: Dany Richardson on 10-09-2024 Platelet mean volume (Bld) [Entitic vol] 11.8 fL 6.2-12.0 [facility] Mean platelet volume determi nationOrdered By: Shayna Malhotra on 10-09-2024 Platelet mean volume (Bld) [Entitic vol] 10.8 fL 6.2-12.0 [facility] Microscopic analysis of urin e for red blood cells (RBC)Ordered By: Dany Richardson on 10-09-2024 Microscopic analysis of urine for red blood cells (RBC) 10-25 SEEN /hpf 0-5 [facility] Urine RBC 10-25 SEEN /hpf 0-5 [facility] Monocyte percentageOrdered B y: Dany Richardson on 10-09-2024 Monocytes/100 WBC (Bld) 8.3 % 0-10 [facility] Monocyte percentageOrdered B y: Shayna Malhotra on 10-09-2024 Monocytes/100 WBC (Bld) 8.4 % 0-10 [facility] Mucus LM Ql (Urine sed)Order ed By: Dany Richardson on 10-09-2024 Mucus Ql (Urine sed) 0 SEEN /hpf [facility] Neutrophil percentageOrdered By: Dany Richardson on 10-09-2024 Neutrophils/100 WBC (Bld) 72.1 % High 47-70 [facility] Neutrophil percentageOrdered By: Shayna Malhotra on 10-09-2024 Neutrophils/100 WBC (Bld) 73.5 % High 47-70 [facility] Nitrite Test strip Ql (U)Ord ered By: Dany Richardson on 10-09-2024 Nitrite Ql (U) Negative Negative [facility] No Panel InformationOrdered By: Missael Lomeli on 10-09-2024 Urine Buprenorphine Qualitative Negative < 200 ng/mL [facility] Urine Oxycodone Screen Negative < 100 ng/mL [facility] Nucleated red blood cell per centageOrdered By: Dany Richardson on 10-09-2024 Nucleated RBC/100 WBC (Bld) [Ratio] 0 % 0-5 [facility] Nucleated red blood cell per centageOrdered By: Shayna Malhotra on 10-09-2024 Nucleated RBC/100 WBC (Bld) [Ratio] 0 % 0-5 [facility] Platelet countOrdered By: Nolan Richardson on 10-09-2024 Platelets (Bld) [#/Vol] 106 10*3/uL Low 150-450 [facility] Platelet countOrdered By: Maryanne Malhotra on 10-09-2024 Platelets (Bld) [#/Vol] 107 10*3/uL Low 150-450 [facility] Potassium (Unsp spec) [Mass/ Vol]Ordered By: Dany Richardson on 10-09-2024 Potassium [Moles/Vol] 4.5 mmol/L 3.3-5.1 [facility] Comment on above: Hemolysis present, R esults could be affected. Potassium (Unsp spec) [Mass/ Vol]Ordered By: Shayna Malhotra on 10-09-2024 Potassium [Moles/Vol] 4.2 mmol/L 3.3-5.1 [facility] Potassium measurement (mass/ volume)Ordered By: Shayna Malhotra on 10-09-2024 Potassium (Unsp spec) [Mass/Vol] 4.2 mmol/L 3.3-5.1 [facility] Protein Test strip Ql (U)Ord ered By: Dany Richardson on 10-09-2024 Protein Ql (U) 30 mg/dl High Negative [facility] Quantitative urine opiates m easurementOrdered By: Missael Lomeli on 10-09-2024 Opiates Ql (U) Negative < 300 ng/mL [facility] RBC Auto (Bld) [#/Vol]Ordere d By: Dany Richardson on 10-09-2024 RBC (Bld) [#/Vol] 4.67 10*6/uL 4.2-5.4 [facility] RBC Auto (Bld) [#/Vol]Ordere d By: Shayna Malhotra on 10-09-2024 RBC (Bld) [#/Vol] 4.68 10*6/uL 4.2-5.4 [facility] Screening urine fentanyl renay surementOrdered By: Misseal Lomeli on 10-09-2024 fentaNYL Screen Ql (U) Negative [facility] Serum creatinine measurement (mass/volume)Ordered By: Dany Richardson on 10-09-2024 Creatinine [Mass/Vol] 0.88 mg/dL 0.70-1.20 [facility] Serum creatinine measurement (mass/volume)Ordered By: Shayna Malhotra on 10-09-2024 Creatinine [Mass/Vol] 0.82 mg/dL 0.70-1.20 [facility] Serum globulin measurementOr dered By: Dany Richardson on 10-09-2024 Globulin (S) [Mass/Vol] 4.6 g/dL High 2.2-4.2 [facility] Serum globulin measurementOr dered By: Shayna Malhotra on 10-09-2024 Globulin (S) [Mass/Vol] 4.8 g/dL High 2.2-4.2 [facility] Serum glucose measurement (m ass/volume)Ordered By: Dany Richardson on 10-09-2024 Glucose [Mass/Vol] 138 mg/dL High 70-99 [facility] Serum glucose measurement (m ass/volume)Ordered By: Shayna Malhotra on 10-09-2024 Glucose [Mass/Vol] 173 mg/dL High 70-99 [facility] Serum or plasma C reactive p rotein measurement (mass/volume)Ordered By: Missael Lomeli on 10-09-2024 CRP [Mass/Vol] 5.92 mg/L High 0.0-3.0 [facility] Serum or plasma alanine burnette otransferase (ALT) measurementOrdered By: Dany Richardson on 10-09-2024 ALT [Catalytic activity/Vol] 23 U/L <35 [facility] Serum or plasma alanine burnette otransferase (ALT) measurementOrdered By: Shayna Malhotra on 10-09-2024 ALT [Catalytic activity/Vol] 26 U/L <35 [facility] Serum or plasma albumin kim urement (mass/volume)Ordered By: Dany Richardson on 10-09-2024 Albumin [Mass/Vol] 3.8 g/dL 3.4-4.8 [facility] Serum or plasma albumin kim urement (mass/volume)Ordered By: Shayna Malhotra on 10-09-2024 Albumin [Mass/Vol] 4.0 g/dL 3.4-4.8 [facility] Serum or plasma albumin/glob ulin mass ratioOrdered By: Dany Richardson on 10-09-2024 Albumin/Globulin [Mass ratio] 0.8 {ratio} Low 0.9-2.4 [facility] Serum or plasma albumin/glob ulin mass ratioOrdered By: Shayna Malhotra on 10-09-2024 Albumin/Globulin [Mass ratio] 0.8 {ratio} Low 0.9-2.4 [facility] Serum or plasma alkaline regina sphatase measurementOrdered By: Dany Richardson on 10-09-2024 ALP [Catalytic activity/Vol] 135 U/L High 35-104 [facility] Serum or plasma alkaline regina sphatase measurementOrdered By: Shayna Malhotra on 10-09-2024 ALP [Catalytic activity/Vol] 148 U/L High 35-104 [facility] Serum or plasma calcium kim urement (mass/volume)Ordered By: Dany Richardson on 10-09-2024 Calcium [Mass/Vol] 9.7 mg/dL 7.6-11.0 [facility] Serum or plasma calcium kim urement (mass/volume)Ordered By: Shayna Malhotra on 10-09-2024 Calcium [Mass/Vol] 9.6 mg/dL 7.6-11.0 [facility] Serum or plasma ethanol kim urement (mass/volume)Ordered By: Missael Lomeli on 10-09-2024 Ethanol [Mass/Vol] mg/dL <10.1 [facility] Comment on above: This test is for med ical purposes only. The legal definition of intoxication varies according to local law. Serum or plasma urea nitroge n measurement (mass/volume)Ordered By: Dany Richardson on 10-09-2024 Urea nitrogen [Mass/Vol] 23 mg/dL High 4-19 [facility] Serum or plasma urea nitroge n measurement (mass/volume)Ordered By: Shayna Malhotra on 10-09-2024 Urea nitrogen [Mass/Vol] 21 mg/dL High 4-19 [facility] Sodium levelOrdered By: Dany Richardson on 10-09-2024 Sodium [Moles/Vol] 138 mmol/L 133-145 [facility] Sodium levelOrdered By: Paty Malhotra on 10-09-2024 Sodium [Moles/Vol] 138 mmol/L 133-145 [facility] Squamous epithelial cells de tection in urine sediment by light microscopyOrdered By: Dany Richardson on 10-09-2024 Epithelial cells.squamous LM Ql (Urine sed) 0-5 SEEN /hpf 5-10 [facility] TSH DL <= 0.005 mIU/L QnOrde red By: Missael Lomeli on 10-09-2024 TSH Qn 4.730 uIU/mL High 0.300-4.20 0 [facility] Thyroid Stim Hormone (TSH)on 10-09-2024 TSH 4.730 uIU/mL High 0.300-4.20 0 [facility] Comment on above: Performed By: #### L 500.4050, L506.1000, L100.0100, L501.9985 #### [facility] [address] [place], [place], [id number] Total proteinOrdered By: Treasure Richardson on 10-09-2024 Protein [Mass/Vol] 8.4 g/dL 5.9-8.4 [facility] Total proteinOrdered By: Evi Malhotra on 10-09-2024 Protein [Mass/Vol] 8.9 g/dL High 5.9-8.4 [facility] Transitional cells LM Ql (Ur ine sed)Ordered By: Dany Richardson on 10-09-2024 Urine Transitional Epithelial Cells 0-5 SEEN /hpf 0-5 [facility] Transitional cells detection in urine sediment by light microscopyOrdered By: Dayn Richardsno on 10-09-2024 Transitional cells LM Ql (Urine sed) 0-5 SEEN /hpf 0-5 [facility] Urinalysis, Completeon 10-09 AMORPHOUS 1+ Normal [facility] Comment on above: Order Comment: 134 Performed By: #### L 500.4050, L506.1000, L100.0100, L501.9985 #### [facility] [address] [place], [address] EPI,SQUAMOUS 0-5 SEEN Normal 5-10 [facility] Comment on above: Order Comment: 134 Performed By: #### L 500.4050, L506.1000, L100.0100, [id number] #### [facility] [address] [place], [address] EPI,TRANSITION 0-5 SEEN Normal 0-5 [facility] Comment on above: Order Comment: 134 Performed By: #### L 500.4050, L506.1000, L100.0100, [id number] #### [facility] [address] [place], [address] RBC 10-25 SEEN Normal 0-5 [facility] Comment on above: Order Comment: 134 Performed By: #### L 500.4050, L506.1000, L100.0100, [id number] #### [facility] [address] [place], [address] BACTERIA 4+ /hpf Normal None Seen [facility] Comment on above: Order Comment: 134 Performed By: #### L 500.4050, L506.1000, L100.0100, [id number] #### [facility] [address] [place], [address] WBC >100 SEEN Normal 0-5 [facility] Comment on above: Order Comment: 134 Performed By: #### L 500.4050, L506.1000, L100.0100, [id number] #### [facility] [address] [place], [address] Mucus Ql (Urine sed) 0 SEEN Normal [facility] Comment on above: Order Comment: 134 Performed By: #### L 500.4050, L506.1000, L100.0100, [id number] #### [facility] [address] [place], [address] Urine Drug Screen (VISTA)on 10-09-2024 AMPHETAMINES Negative Normal <1000 ng/mL [facility] Comment on above: Order Comment: 134 Performed By: #### L 500.4050, L506.1000, L100.0100, L501.9985 #### [facility] [address] [place], [address] BARBITIURATES Negative Normal < 200 ng/mL [facility] Comment on above: Order Comment: 134 Performed By: #### L 500.4050, L506.1000, L100.0100, L501.9985 #### [facility] [address] [place], [address] BENZODIAZIPINE Negative Normal < 200 ng/mL [facility] Comment on above: Order Comment: 134 Performed By: #### L 500.4050, L506.1000, L100.0100, L501.9985 #### [facility] [address] [place], [address] BUP Ur Drug Scr Negative Normal < 200 ng/mL [facility] Comment on above: Order Comment: 134 Performed By: #### L 500.4050, L506.1000, L100.0100, L501.9985 #### [facility] [address] [place], [address] COCAINE Negative Normal < 300 ng/mL [facility] Comment on above: Order Comment: 134 Performed By: #### L 500.4050, L506.1000, L100.0100, L501.9985 #### [facility] [address] [place], [address] Fentanyl Negative Normal [facility] Comment on above: Order Comment: 134 Performed By: #### L 500.4050, L506.1000, L100.0100, L501.9985 #### [facility] [address] [place], [address] METHADONE Negative Normal < 300 ng/mL [facility] Comment on above: Order Comment: 134 Performed By: #### L 500.4050, L506.1000, L100.0100, L501.9985 #### [facility] [address] [place], [address] OPIATES Negative Normal < 300 ng/mL [facility] Comment on above: Order Comment: 134 Performed By: #### L 500.4050, L506.1000, L100.0100, L501.9985 #### [facility] [address] [place], [address] OXYCODONE Negative Normal < 100 ng/mL [facility] Comment on above: Order Comment: 134 Performed By: #### L 500.4050, L506.1000, L100.0100, L501.9985 #### [facility] [address] [place], [address] PCP Negative Normal < 25 ng/mL [facility] Comment on above: Order Comment: 134 Performed By: #### L 500.4050, L506.1000, L100.0100, [id number] #### [facility] [address] [place], [place], [facility] THC Negative Normal < 50 ng/mL [facility] Comment on above: Order Comment: 134 Performed By: #### L 500.4050, L506.1000, L100.0100, L501.9985 #### [facility] [address] [place], [address] Urine benzodiazepine levelOr dered By: Missael Lomeli on 10-09-2024 Benzodiazepines Ql (U) Negative < 200 ng/mL [facility] Urine blood detectionOrdered By: Dany Richardson on 10-09-2024 Urine Occult Blood 150 /ul High Negative [facility] Urine clarityOrdered By: Treasure Richardson on 10-09-2024 Clarity (U) Cloudy Clear [facility] Urine cocaine levelOrdered B y: Missael Lomeli on 10-09-2024 Cocaine Ql (U) Negative < 300 ng/mL [facility] Urine color determinationOrd ered By: Dany Richardson on 10-09-2024 Color (U) Yellow Yellow [facility] Urine yubcf-[id number] abinol (THC) measurementOrdered By: Missael Lomeli on 10-09-2024 Cannabinoids Screen Ql (U) Negative < 50 ng/mL [facility] Urine glucose detectionOrder ed By: Dany Richardson on 10-09-2024 Glucose Ql (U) 1000 mg/dl High Normal [facility] Urine leukocyte esterase det ection by dipstickOrdered By: Dany Richardson on 10-09-2024 Leukocyte esterase Test strip Ql (U) 100 /ul High Negative [facility] Urine pHOrdered By: Dany chung on 10-09-2024 pH (U) 5.0 [pH] 5.0 - 8.0 [facility] Urine phencyclidine (PCP) de tectionOrdered By: Missael Lomeli on 10-09-2024 Phencyclidine Ql (U) Negative < 25 ng/mL [facility] Urine sediment bacteria coun t by microscopy (number/high power field)Ordered By: Dany Richardson on 10-09-2024 Bacteria LM.HPF (Urine sed) [#/Area] 4 /[HPF] None Seen [facility] Urine specific gravity measu rementOrdered By: Dany Richardson on 10-09-2024 Specific gravity (U) [Rel density] 1.020 1.002-1.03 0 [facility] Urine urobilinogen measureme ntOrdered By: Dany Richardson on 10-09-2024 Urobilinogen Ql (U) 1 mg/dl High Normal [facility] Urobilinogen Ql (U)Ordered B y: Dany Richardson on 10-09-2024 Urobilinogen (U) [Mass/Vol] 1 mg/dL High Normal [facility] Vitamin B12on 10-09-2024 Cobalamin (Vitamin B12) [Mass/Vol] 379 pg/mL Normal 180-914 [facility] Comment on above: Performed By: #### L 503.0106 #### [facility] [address] [place], [place], [address] Vitamin B12 ser/plasOrdered By: Missael Lomeli on 10-09-2024 Cobalamin (Vitamin B12) [Mass/Vol] 379 pg/mL 180-914 [facility] Vitamin D, 25-hydroxyOrdered By: Shayna Malhotra on 10-09-2024 Vitamin D 25-Hydroxy 30.0 ng/mL 30-100 [facility] Comment on above: Vitamin D StatusDefi ciency: <20 ng/mL (50nmol/L)Insufficiency: 20-30 ng/mL (50-75 nmol/L)Sufficiency: 30-100 ng/mL (75-250 nmol/L)Toxicity: >100 ng/mL (>250 nmol/L) Vitamin D,25 Hydroxyon 10-09 Vitamin D 25-OH 30.0 ng/mL Normal 30-100 [facility] Comment on above: Order Comment: 134 Result Comment: Maricarmen min D Status Deficiency: <20 ng/mL (50nmol/L) Insufficiency: 20-30 ng/mL (50-75 nmol/L) Sufficiency: 30-100 ng/mL (75-250 nmol/L) Toxicity: >100 ng/mL (>250 nmol/L) Performed By: #### L 500.4050, L506.1000, L100.0100, L501.9985 #### [facility] [address] [place], [place], [address] White blood cell (WBC) count Ordered By: Dany Richardson on 10-09-2024 WBC (Bld) [#/Vol] 6.8 10*3/uL 4.4-11.0 [facility] White blood cell (WBC) count Ordered By: Shayna Malhotra on 10-09-2024 WBC (Bld) [#/Vol] 6.0 10*3/uL 4.4-11.0 [facility] White blood cell countOrdere d By: Dany Richardson on 10-09-2024 Urine WBC >100 SEEN /hpf 0-5 [facility] White blood cell count >100 SEEN /hpf 0-5 [facility] CBC W/Diff, Automatedon Absolute Neut Normal 2.0-7.7 [facility] Comment on above: Order Comment: 134 Result Comment: UTO X2 Performed By: #### L 506.1000, L100.0100, L501.9985, L500.4050 #### [facility] [address] [place], [address] HCT Normal 37-47 [facility] Comment on above: Order Comment: 134 Result Comment: UTO X2 Performed By: #### L 506.1000, L100.0100, L501.9985, L500.4050 #### [facility] [address] [place], [address] HGB Normal 12.0-15.0 [facility] Comment on above: Order Comment: 134 Result Comment: UTO X2 Performed By: #### L 506.1000, L100.0100, L501.9985, L500.4050 #### [facility] [address] [place], [address] MCH Normal 27.0-32.0 [facility] Comment on above: Order Comment: 134 Result Comment: UTO X2 Performed By: #### L 506.1000, L100.0100, L501.9985, L500.4050 #### [facility] [address] [place], [address] MCHC Normal 32-36 [facility] Comment on above: Order Comment: 134 Result Comment: UTO X2 Performed By: #### L 506.1000, L100.0100, L501.9985, L500.4050 #### [facility] [address] [place], [address] MCV Normal 81-99 [facility] Comment on above: Order Comment: 134 Result Comment: UTO X2 Performed By: #### L 506.1000, L100.0100, L501.9985, L500.4050 #### [facility] [address] [place], [address] NEUT% Normal 47-70 [facility] Comment on above: Order Comment: 134 Result Comment: UTO X2 Performed By: #### L 506.1000, L100.0100, L501.9985, L500.4050 #### [facility] [address] [place], [address] PLT Normal 150-450 [facility] Comment on above: Order Comment: 134 Result Comment: UTO X2 Performed By: #### L 506.1000, L100.0100, L501.9985, L500.4050 #### [facility] [address] [place], [address] RBC Normal 4.2-5.4 [facility] Comment on above: Order Comment: 134 Result Comment: UTO X2 Performed By: #### L 506.1000, L100.0100, L501.9985, L500.4050 #### [facility] [address] [place], [address] RDW CV Normal 11.6-14.6 [facility] Comment on above: Order Comment: 134 Result Comment: UTO X2 Performed By: #### L 506.1000, L100.0100, L501.9985, L500.4050 #### [facility] [address] [place], [address] RDW SD Normal 35.1-43.9 [facility] Comment on above: Order Comment: 134 Result Comment: UTO X2 Performed By: #### L 506.1000, L100.0100, L501.9985, L500.4050 #### [facility] [address] [place], [address] WBC Normal 4.4-11.0 [facility] Comment on above: Order Comment: 134 Result Comment: UTO X2 Performed By: #### L 506.1000, L100.0100, L501.9985, L500.4050 #### [facility] [address] [place], [address] Comprehensive Metabolic Prof ilon 10-08-2024 ALB Normal 3.4-4.8 [facility] Comment on above: Order Comment: 134 Result Comment: UTO X2 Performed By: #### L 506.1000, L100.0100, L501.9985, L500.4050 #### [facility] [address] [place], [address] ALK PHOS Normal 35-104 [facility] Comment on above: Order Comment: 134 Result Comment: UTO X2 Performed By: #### L 506.1000, L100.0100, L501.9985, L500.4050 #### [facility] [address] [place], [address] ALT Normal <=34 [facility] Comment on above: Order Comment: 134 Result Comment: UTO X2 Performed By: #### L 506.1000, L100.0100, L501.9985, L500.4050 #### [facility] [address] [place], [address] AST Normal <=31 [facility] Comment on above: Order Comment: 134 Result Comment: UTO X2 Performed By: #### L 506.1000, L100.0100, L501.9985, L500.4050 #### [facility] [address] [place], [address] BUN Normal 4-19 [facility] Comment on above: Order Comment: 134 Result Comment: UTO X2 Performed By: #### L 506.1000, L100.0100, L501.9985, L500.4050 #### [facility] [address] [place], [address] BUN/CRE Normal 10-20 [facility] Comment on above: Order Comment: 134 Result Comment: UTO X2 Performed By: #### L 506.1000, L100.0100, L501.9985, L500.4050 #### [facility] [address] [place], [address] Calcium Normal 7.6-11.0 [facility] Comment on above: Order Comment: 134 Result Comment: UTO X2 Performed By: #### L 506.1000, L100.0100, L501.9985, L500.4050 #### [facility] [address] [place], [address] CL Normal 98-108 [facility] Comment on above: Order Comment: 134 Result Comment: UTO X2 Performed By: #### L 506.1000, L100.0100, L501.9985, L500.4050 #### [facility] [address] [place], [address] CO2 Normal 21.0-32.0 [facility] Comment on above: Order Comment: 134 Result Comment: UTO X2 Performed By: #### L 506.1000, L100.0100, L501.9985, L500.4050 #### [facility] [address] [place], [address] CREAT,SERUM Normal 0.70-1.20 [facility] Comment on above: Order Comment: 134 Result Comment: UTO X2 Performed By: #### L 506.1000, L100.0100, L501.9985, L500.4050 #### [facility] [address] [place], [address] eGFR Normal >60 [facility] Comment on above: Order Comment: 134 Result Comment: UTO X2 Performed By: #### L 506.1000, L100.0100, L501.9985, L500.4050 #### [facility] [address] [place], [address] GAP Normal 5-15 [facility] Comment on above: Order Comment: 134 Result Comment: UTO X2 Performed By: #### L 506.1000, L100.0100, L501.9985, L500.4050 #### [facility] [address] [place], [address] GLU Normal 70-99 [facility] Comment on above: Order Comment: 134 Result Comment: UTO X2 Performed By: #### L 506.1000, L100.0100, L501.9985, L500.4050 #### [facility] [address] [place], [address] Potassium Normal 3.3-5.1 [facility] Comment on above: Order Comment: 134 Result Comment: UTO X2 Performed By: #### L 506.1000, L100.0100, L501.9985, L500.4050 #### [facility] [address] [place], [address] T BILI Normal 0.00-1.30 [facility] Comment on above: Order Comment: 134 Result Comment: UTO X2 Performed By: #### L 506.1000, L100.0100, L501.9985, L500.4050 #### [facility] [address] [place], [address] T PROT Normal 5.9-8.4 [facility] Comment on above: Order Comment: 134 Result Comment: UTO X2 Performed By: #### L 506.1000, L100.0100, L501.9985, L500.4050 #### [facility] [address] [place], [address] Comprehensive Metabolic Profil Normal 133-145 [facility] Comment on above: Order Comment: 134 Result Comment: UTO X2 Performed By: #### L 506.1000, L100.0100, L501.9985, L500.4050 #### [facility] [address] [place], [address] 20-ZI-Yncsahp DOrdered By: Jean Malhotra on 07-09-2024 Vitamin D 25-Hydroxy 44.8 ng/mL [facility] Comment on above: Vitamin D 25(OH) Sta tus Range Deficiency <20 ng/mL (50nmol/L) Insufficiency 20 - 30 ng/mL (50 - 75 nmol/L) Sufficiency 30 - 100 ng/mL (75 - 250 nmol/L) Toxicity >100 ng/mL (>250 nmol/L) Absolute lymphocyte countOrd ered By: Shayna Malhotra on 07-09-2024 Lymphocytes Auto (Unsp spec) [#/Vol] 0.82 10*3/uL Low 0.83-4.51 [facility] Absolute neutrophil countOrd ered By: Shayna Malhotra on 07-09-2024 Neutrophils (Bld) [#/Vol] 2.6 10*3/uL 2.0-7.7 [facility] Albumin to globulin ratioOrd ered By: Shayna Malhotra on 07-09-2024 Albumin/Globulin [Mass ratio] 0.6 {ratio} Low 0.9-2.4 [facility] Automated lymphocyte count a s percentage of total leukocytesOrdered By: Shayna Malhotra on 07-09-2024 Lymphocytes/100 WBC Auto (Unsp spec) 20.2 % 19-41 [facility] Basophil percentageOrdered B y: Shayna Malhotra on 07-09-2024 Basophils/100 WBC (Bld) 1.0 % 0-1 [facility] Bilirubin, totalOrdered By: Shayna Malhotra on 07-09-2024 Bilirubin [Mass/Vol] 0.70 mg/dL 0.20-1.00 [facility] Comment on above: For patients on eltr ombopag therapy, use of Dimension Morton TBIL is not recommended. Blood urea nitrogen (BUN)/cr eatinine ratioOrdered By: Shayna Malhotra on 07-09-2024 Urea nitrogen/Creatinine [Mass ratio] 22.2 mg/mg High 10-20 [facility] CBC W/Diff, Automatedon 02-0 -2024 Absolute Lymph 0.82 X10 3/uL Low 0.83-4.51 [facility] Comment on above: Order Comment: 134 Performed By: #### L 500.4050, L506.1000, L100.0100, L501.9985 #### [facility] [address] [place], [address] Absolute Neut 2.6 X10 3/uL Normal 2.0-7.7 [facility] Comment on above: Order Comment: 134 Performed By: #### L 500.4050, L506.1000, L100.0100, L501.9985 #### [facility] [address] [place], [address] Basophils/100 WBC (Bld) 1.0 % Normal 0-1 [facility] Comment on above: Order Comment: 134 Performed By: #### L 500.4050, L506.1000, L100.0100, L501.9985 #### [facility] [address] [place], [address] Eosinophils/100 WBC (Bld) 5.9 % High 0-5 [facility] Comment on above: Order Comment: 134 Performed By: #### L 500.4050, L506.1000, L100.0100, L501.9985 #### [facility] [address] [place], [address] Erythrocyte distribution width (RBC) [Ratio] 15.9 % High 11.6-14.6 [facility] Comment on above: Order Comment: 134 Performed By: #### L 500.4050, L506.1000, L100.0100, L501.9985 #### [facility] [address] [place], [address] Hematocrit (Bld) [Volume fraction] 38.2 % Normal 37-47 [facility] Comment on above: Order Comment: 134 Performed By: #### L 500.4050, L506.1000, L100.0100, L501.9985 #### [facility] [address] [place], [address] Hemoglobin (Bld) [Mass/Vol] 12.4 g/dL Normal 12.0-15.0 [facility] Comment on above: Order Comment: 134 Performed By: #### L 500.4050, L506.1000, L100.0100, L501.9985 #### [facility] [address] [place], [address] IG% 0.200 Normal 0.0-0.9 [facility] Comment on above: Order Comment: 134 Result Comment: IG% - Immature Granulocytes (promyelocytes, myelocytes and metamyelocytes) > 1% indicates that a LEFT SHIFT is Present. Performed By: #### L 500.4050, L506.1000, L100.0100, L501.9985 #### [facility] [address] [place], [address] Lymphocytes/100 WBC (Bld) 20.2 % Normal 19-41 [facility] Comment on above: Order Comment: 134 Performed By: #### L 500.4050, L506.1000, L100.0100, L501.9985 #### [facility] [address] [place], [address] MCH (RBC) [Entitic mass] 29.0 pg Normal 27.0-32.0 [facility] Comment on above: Order Comment: 134 Performed By: #### L 500.4050, L506.1000, L100.0100, L501.9985 #### [facility] [address] [place], [address] MCHC (RBC) [Mass/Vol] 32.5 g/dL Normal 32-36 [facility] Comment on above: Order Comment: 134 Performed By: #### L 500.4050, L506.1000, L100.0100, L501.9985 #### [facility] [address] [place], [address] MCV (RBC) [Entitic vol] 89.5 fL Normal 81-99 [facility] Comment on above: Order Comment: 134 Performed By: #### L 500.4050, L506.1000, L100.0100, L501.9985 #### [facility] [address] [place], [address] Monocytes/100 WBC (Bld) 9.6 % Normal 0-10 [facility] Comment on above: Order Comment: 134 Performed By: #### L 500.4050, L506.1000, L100.0100, L501.9985 #### [facility] [address] [place], [address] Neutrophils/100 WBC (Bld) 63.1 % Normal 47-70 [facility] Comment on above: Order Comment: 134 Performed By: #### L 500.4050, L506.1000, L100.0100, L501.9985 #### [facility] [address] [place], [address] Nucleated RBC (Bld) [#/Vol] 0 10*3/uL Normal 0-5 [facility] Comment on above: Order Comment: 134 Performed By: #### L 500.4050, L506.1000, L100.0100, L501.9985 #### [facility] [address] [place], [address] Platelet mean volume (Bld) [Entitic vol] 11.0 fL Normal 6.2-12.0 [facility] Comment on above: Order Comment: 134 Performed By: #### L 500.4050, L506.1000, L100.0100, L501.9985 #### [facility] [address] [place], [address] Platelets (Bld) [#/Vol] 116 10*3/uL Low 150-450 [facility] Comment on above: Order Comment: 134 Performed By: #### L 500.4050, L506.1000, L100.0100, L501.9985 #### [facility] [address] [place], [address] RBC (Bld) [#/Vol] 4.27 10*6/uL Normal 4.2-5.4 [facility] Comment on above: Order Comment: 134 Performed By: #### L 500.4050, L506.1000, L100.0100, L501.9985 #### [facility] [address] [place], [address] RDW SD 52.1 fl High 35.1-43.9 [facility] Comment on above: Order Comment: 134 Performed By: #### L 500.4050, L506.1000, L100.0100, L501.9985 #### [facility] [address] [place], [address] WBC (Bld) [#/Vol] 4.1 10*3/uL Low 4.4-11.0 [facility] Comment on above: Order Comment: 134 Performed By: #### L 500.4050, L506.1000, L100.0100, L501.9985 #### [facility] [address] [place], [address] Carbon dioxide measurementOr dered By: Shayna Malhotra on 07-09-2024 CO2 [Moles/Vol] 25.0 mmol/L 21.0-32.0 [facility] Chloride measurementOrdered By: Shayna Malhotra on 07-09-2024 Chloride [Moles/Vol] 107 mmol/L 98-107 [facility] Comprehensive Metabolic Prof ilon 07-09-2024 Albumin [Mass/Vol] 3.1 g/dL Low 3.2-5.0 [facility] Comment on above: Order Comment: 134 Performed By: #### L 500.4050, L506.1000, L100.0100, L501.9985 #### [facility] [address] [place], [address] Albumin/Globulin [Mass ratio] 0.6 {ratio} Low 0.9-2.4 [facility] Comment on above: Order Comment: 134 Performed By: #### L 500.4050, L506.1000, L100.0100, L501.9985 #### [facility] [address] [place], [address] ALK P 126 U/L High 45-117 [facility] Comment on above: Order Comment: 134 Performed By: #### L 500.4050, L506.1000, L100.0100, L501.9985 #### [facility] [address] [place], [address] ALT [Catalytic activity/Vol] 27 U/L Normal 13-56 [facility] Comment on above: Order Comment: 134 Performed By: #### L 500.4050, L506.1000, L100.0100, L501.9985 #### [facility] [address] [place], [address] AST [Catalytic activity/Vol] 35 U/L Normal 15-37 [facility] Comment on above: Order Comment: 134 Performed By: #### L 500.4050, L506.1000, L100.0100, L501.9985 #### [facility] [address] [place], [address] Bilirubin [Mass/Vol] 0.70 mg/dL Normal 0.20-1.00 [facility] Comment on above: Order Comment: 134 Result Comment: For patients on eltrombopag therapy, use of Dimension Morton TBIL is not recommended. Performed By: #### L 500.4050, L506.1000, L100.0100, L501.9985 #### [facility] [address] [place], [address] BUN/CRE 22.2 RATIO High 10-20 [facility] Comment on above: Order Comment: 134 Performed By: #### L 500.4050, L506.1000, L100.0100, L501.9985 #### [facility] [address] [place], [address] CA,Total 9.3 mg/dL Normal 8.5-10.1 [facility] Comment on above: Order Comment: 134 Performed By: #### L 500.4050, L506.1000, L100.0100, L501.9985 #### [facility] [address] [place], [address] Chloride [Moles/Vol] 107 mmol/L Normal 98-107 [facility] Comment on above: Order Comment: 134 Performed By: #### L 500.4050, L506.1000, L100.0100, L501.9985 #### [facility] [address] [place], [address] CO2 [Moles/Vol] 25.0 mmol/L Normal 21.0-32.0 [facility] Comment on above: Order Comment: 134 Performed By: #### L 500.4050, L506.1000, L100.0100, L501.9985 #### [facility] [address] [place], [address] Creatinine [Mass/Vol] 0.76 mg/dL Normal 0.55-1.02 [facility] Comment on above: Order Comment: 134 Result Comment: The validity of the calculated GFR GFRAA in patients over 70 years has not been determined. Clinical correlation is essential. Performed By: #### L 500.4050, L506.1000, L100.0100, L501.9985 #### [facility] [address] [place], [address] EST GFR - AA 96 mL/min Normal >60 [facility] Comment on above: Order Comment: 134 Result Comment: Afri can Italian GFR Calc Performed By: #### L 500.4050, L506.1000, L100.0100, L501.9985 #### [facility] [address] [place], [address] GAP 5 Normal 5-15 [facility] Comment on above: Order Comment: 134 Performed By: #### L 500.4050, L506.1000, L100.0100, L501.9985 #### [facility] [address] [place], [address] GFR/1.73 sq M.predicted among non-blacks MDRD (S/P/Bld) [Vol rate/Area] 79 mL/min/{1.73_m2} Normal >60 [facility] Comment on above: Order Comment: 134 Result Comment: Non- GFR Calc Performed By: #### L 500.4050, L506.1000, L100.0100, L501.9985 #### [facility] [address] [place], [address] Globulin (S) [Mass/Vol] 4.9 g/dL High 2.2-4.2 [facility] Comment on above: Order Comment: 134 Performed By: #### L 500.4050, L506.1000, L100.0100, L501.9985 #### [facility] [address] [place], [address] Glucose [Mass/Vol] 168 mg/dL High 74-106 [facility] Comment on above: Order Comment: 134 Result Comment: Fast ing Glucose result greater than or equal to 126 mg/dL suggests DIABETES MELLITUS per A.D.A. criteria. Performed By: #### L 500.4050, L506.1000, L100.0100, L501.9985 #### [facility] [address] [place], [address] Potassium [Moles/Vol] 4.2 mmol/L Normal 3.5-5.1 [facility] Comment on above: Order Comment: 134 Performed By: #### L 500.4050, L506.1000, L100.0100, L501.9985 #### [facility] [address] [place], [address] Sodium [Moles/Vol] 137 mmol/L Normal 136-145 [facility] Comment on above: Order Comment: 134 Performed By: #### L 500.4050, L506.1000, L100.0100, L501.9985 #### [facility] [address] [place], [address] T PROT 8.0 g/dL Normal 6.4-8.2 [facility] Comment on above: Order Comment: 134 Performed By: #### L 500.4050, L506.1000, L100.0100, L501.9985 #### [facility] [address] [place], [address] Urea nitrogen [Mass/Vol] 17 mg/dL Normal 7-18 [facility] Comment on above: Order Comment: 134 Performed By: #### L 500.4050, L506.1000, L100.0100, L501.9985 #### [facility] [address] [place], [address] Eosinophil percentageOrdered By: Shayna Malhotra on 07-09-2024 Eosinophils/100 WBC (Bld) 5.9 % High 0-5 [facility] Erythrocyte distribution wid th (RBC) [Ratio]Ordered By: Shayna Malhotra on 07-09-2024 Erythrocyte distribution width (RBC) [Entitic vol] 52.1 fL High 35.1-43.9 [facility] Erythrocyte distribution wid th ratioOrdered By: Shayna Malhotra on 07-09-2024 Erythrocyte distribution width (RBC) [Ratio] 15.9 % High 11.6-14.6 [facility] Erythrocyte distribution wid th standard deviationOrdered By: Shayna Malhotra on 07-09-2024 Erythrocyte distribution width (RBC) [Ratio] 52.1 fl High 35.1-43.9 [facility] Estimated glomerular filtrat ion rate (GFR) AmericanOrdered By: Shayna Malhotra on 07-09-2024 Estimated GFR (MDRD) Amer 96 mL/min >60 [facility] Comment on above: GFR Calc Glomerular filtration rate ( GFR) estimationOrdered By: Shayna Malhotra on 07-09-2024 Estimated GFR (MDRD) Non-Af Amer 79 mL/min >60 [facility] Comment on above: Non- GFR Calc GFR/1.73 sq M.predicted among non-blacks MDRD (S/P/Bld) [Vol rate/Area] 79 mL/min/{1.73_m2} >60 [facility] Comment on above: Non- GFR Calc Glucose measurementOrdered B y: Shayna Malhotra on 07-09-2024 Glucose [Mass/Vol] 168 mg/dL High 74-106 [facility] Comment on above: Fasting Glucose resu lt greater than or equal to 126 mg/dL suggests DIABETES MELLITUS per A.D.A. criteria. Hematocrit Auto (Bld) [Volum e fraction]Ordered By: Shayna Malhotra on 07-09-2024 Hematocrit (Bld) [Volume fraction] 38.2 % 37-47 [facility] Hemoglobin A1con 07-09-2024 HbA1c (Bld) [Mass fraction] 6.6 % High 3.8-5.6 [facility] Comment on above: Order Comment: 134 Result Comment: Norm al < 5.7 % Prediabetic 5.7 - 6.4 % Diabetic >or= 6.5 % Please note range changes. Performed By: #### L 500.4050, L506.1000, L100.0100, L501.9960 #### [facility] [address] [place], [place], [address] Hemoglobin A1c percentageOrd ered By: Shayna Malhotra on 07-09-2024 HbA1c (Bld) [Mass fraction] 6.6 % High 3.8-5.6 [facility] Comment on above: Normal < 5.7 % Predi abetic 5.7 - 6.4 % Diabetic >or= 6.5 % Please note range changes. Hemoglobin measurementOrdere d By: Shayna Malhotra on 07-09-2024 Hemoglobin (Bld) [Mass/Vol] 12.4 g/dL 12.0-15.0 [facility] Immature granulocytes/100 WB C Auto (Bld)Ordered By: Shayna Malhotra on 07-09-2024 Immature granulocytes/100 WBC (Bld) 0.200 % 0.0-0.9 [facility] Comment on above: IG% - Immature Granu locytes (promyelocytes, myelocytes and metamyelocytes) > 1% indicates that a LEFT SHIFT is Present. Laboratory - Chemistry and C hemistry - challengeOrdered By: Shayna Malhotra on 07-09-2024 AST [Catalytic activity/Vol] 35 U/L 15-37 [facility] Lymphocytes Auto (Unsp spec) [#/Vol]Ordered By: Shayna Malhotra on 07-09-2024 Lymphocytes (Bld) [#/Vol] 0.82 10*3/uL Low 0.83-4.51 [facility] Lymphocytes/100 WBC Auto (Un sp spec)Ordered By: Shayna Malhotra on 07-09-2024 Lymphocytes/100 WBC (Bld) 20.2 % 19-41 [facility] MCV (mean corpuscular volume ) determinationOrdered By: Shayna Malhotra on 07-09-2024 MCV (RBC) [Entitic vol] 89.5 fL 81-99 [facility] Mean corpuscular hemoglobin (MCH) determinationOrdered By: Shayna Malhotra on 07-09-2024 MCH (RBC) [Entitic mass] 29.0 pg 27.0-32.0 [facility] Mean corpuscular hemoglobin concentration (MCHC) determinationOrdered By: Shayna Malhotra on 07-09-2024 MCHC (RBC) [Mass/Vol] 32.5 g/dL 32-36 [facility] Mean platelet volume determi nationOrdered By: Shayna Malhotra on 07-09-2024 Platelet mean volume (Bld) [Entitic vol] 11.0 fL 6.2-12.0 [facility] Monocyte percentageOrdered B y: Shayna Malhotra on 07-09-2024 Monocytes/100 WBC (Bld) 9.6 % 0-10 [facility] Neutrophil percentageOrdered By: Shayna Malhotra on 07-09-2024 Neutrophils/100 WBC (Bld) 63.1 % 47-70 [facility] Nucleated red blood cell per centageOrdered By: Shayna Malhotra on 07-09-2024 Nucleated RBC/100 WBC (Bld) [Ratio] 0 % 0-5 [facility] Platelet countOrdered By: Maryanne Malhotra on 07-09-2024 Platelets (Bld) [#/Vol] 116 10*3/uL Low 150-450 [facility] Potassium measurementOrdered By: Shayna Malhotra on 07-09-2024 Potassium [Moles/Vol] 4.2 mmol/L 3.5-5.1 [facility] RBC Auto (Bld) [#/Vol]Ordere d By: Shayna Malhotra on 07-09-2024 RBC (Bld) [#/Vol] 4.27 10*6/uL 4.2-5.4 [facility] Serum anion gap measurementO rdered By: Shayna Malhotra on 07-09-2024 Anion gap [Moles/Vol] 5 mmol/L 5-15 [facility] Serum globulin measurementOr dered By: Shayna Malhotra on 07-09-2024 Globulin (S) [Mass/Vol] 4.9 g/dL High 2.2-4.2 [facility] Serum or plasma alanine burnette otransferase (ALT) measurementOrdered By: Shayna Malhotra on 07-09-2024 ALT [Catalytic activity/Vol] 27 U/L 13-56 [facility] Serum or plasma albumin kim urement (mass/volume)Ordered By: Shayna Malhotra on 07-09-2024 Albumin [Mass/Vol] 3.1 g/dL Low 3.2-5.0 [facility] Serum or plasma alkaline regina sphatase measurementOrdered By: Shayna Malhotra on 07-09-2024 ALP [Catalytic activity/Vol] 126 U/L High 45-117 [facility] Serum or plasma calcium kim urement (mass/volume)Ordered By: Shayna Malhotra on 07-09-2024 Calcium [Mass/Vol] 9.3 mg/dL 8.5-10.1 [facility] Serum or plasma creatinine m easurement (mass/volume)Ordered By: Shayna Malhotra on 07-09-2024 Creatinine [Mass/Vol] 0.76 mg/dL 0.55-1.02 [facility] Comment on above: The validity of the calculated GFR & GFRAA in patients over 70 years has not been determined. Clinical correlation is essential. Serum or plasma urea nitroge n measurement (mass/volume)Ordered By: Shayna Malhotra on 07-09-2024 Urea nitrogen [Mass/Vol] 17 mg/dL 7-18 [facility] Sodium levelOrdered By: Paty Malhotra on 07-09-2024 Sodium [Moles/Vol] 137 mmol/L 136-145 [facility] Total proteinOrdered By: Evi Malhotra on 07-09-2024 Protein [Mass/Vol] 8.0 g/dL 6.4-8.2 [facility] Vitamin D,25 Hydroxyon 07-09 Vitamin D 25-OH 44.8 ng/mL Normal [facility] Comment on above: Order Comment: 134 Result Comment: Maricarmen min D 25(OH) Status Range Deficiency <20 ng/mL (50nmol/L) Insufficiency 20 - 30 ng/mL (50 - 75 nmol/L) Sufficiency 30 - 100 ng/mL (75 - 250 nmol/L) Toxicity >100 ng/mL (>250 nmol/L) Performed By: #### L 500.4050, L506.1000, L100.0100, L501.9985 #### [facility] [address] [place], [place], [address] White blood cell (WBC) count Ordered By: Shayna Malhotra on 07-09-2024 WBC (Bld) [#/Vol] 4.1 10*3/uL Low 4.4-11.0 [facility] MR/BMS.[facility] 07-04-2024 MR/BMS.IMB [facility] [address] [place], [place] [id number] OFFICE VISIT Date of Service: 07/04/24 MR#: [id number] Acct: [id number] Name: VIDA NINA Rep #: [id number] : 1950 Provider: Dr. 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 Normal [facility] MR/BMS.[facility] 05-28-2024 MR/BMS.[facility] [address] [place] [address] OFFICE VISIT Date of Service: 05/28/24 MR#: [id number] Acct: [id number] Name: VIDA NINA Rep #: [id number] : 1950 Provider: Dr. 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 She lives at [facility]. She checked herself in there a few years ago as she felt it was in (more content not included)... Normal [facility] CBC W/Diff, Automatedon 11-0 -2023 Absolute Lymph 0.98 X10 3/uL Normal 0.83-4.51 [facility] Comment on above: Order Comment: 134 Performed By: #### L 500.4050, L506.1000, L100.0100, L501.9985 #### [facility] [address] [place], [address] Absolute Neut 2.6 X10 3/uL Normal 2.0-7.7 [facility] Comment on above: Order Comment: 134 Performed By: #### L 500.4050, L506.1000, L100.0100, L501.9985 #### [facility] [address] [place], [address] Basophils/100 WBC (Bld) 0.7 % Normal 0-1 [facility] Comment on above: Order Comment: 134 Performed By: #### L 500.4050, L506.1000, L100.0100, L501.9985 #### [facility] [address] [place], [address] Eosinophils/100 WBC (Bld) 4.1 % Normal 0-5 [facility] Comment on above: Order Comment: 134 Performed By: #### L 500.4050, L506.1000, L100.0100, L501.9985 #### [facility] [address] [place], [address] Erythrocyte distribution width (RBC) [Ratio] 15.2 % High 11.6-14.6 [facility] Comment on above: Order Comment: 134 Performed By: #### L 500.4050, L506.1000, L100.0100, L501.9985 #### [facility] [address] [place], [address] Hematocrit (Bld) [Volume fraction] 39.8 % Normal 37-47 [facility] Comment on above: Order Comment: 134 Performed By: #### L 500.4050, L506.1000, L100.0100, L501.9985 #### [facility] [address] [place], [address] Hemoglobin (Bld) [Mass/Vol] 12.5 g/dL Normal 12.0-15.0 [facility] Comment on above: Order Comment: 134 Performed By: #### L 500.4050, L506.1000, L100.0100, L501.9985 #### [facility] [address] [place], [address] IG% 0.200 Normal 0.0-0.9 [facility] Comment on above: Order Comment: 134 Result Comment: IG% - Immature Granulocytes (promyelocytes, myelocytes and metamyelocytes) > 1% indicates that a LEFT SHIFT is Present. Performed By: #### L 500.4050, L506.1000, L100.0100, L501.9985 #### [facility] [address] [place], [address] Lymphocytes/100 WBC (Bld) 23.9 % Normal 19-41 [facility] Comment on above: Order Comment: 134 Performed By: #### L 500.4050, L506.1000, L100.0100, L501.9985 #### [facility] [address] [place], [address] MCH (RBC) [Entitic mass] 28.4 pg Normal 27.0-32.0 [facility] Comment on above: Order Comment: 134 Performed By: #### L 500.4050, L506.1000, L100.0100, L501.9985 #### [facility] [address] [place], [address] MCHC (RBC) [Mass/Vol] 31.4 g/dL Low 32-36 [facility] Comment on above: Order Comment: 134 Performed By: #### L 500.4050, L506.1000, L100.0100, L501.9985 #### [facility] [address] [place], [address] MCV (RBC) [Entitic vol] 90.5 fL Normal 81-99 [facility] Comment on above: Order Comment: 134 Performed By: #### L 500.4050, L506.1000, L100.0100, L501.9985 #### [facility] [address] [place], [address] Monocytes/100 WBC (Bld) 8.5 % Normal 0-10 [facility] Comment on above: Order Comment: 134 Performed By: #### L 500.4050, L506.1000, L100.0100, L501.9985 #### [facility] [address] [place], [address] Neutrophils/100 WBC (Bld) 62.6 % Normal 47-70 [facility] Comment on above: Order Comment: 134 Performed By: #### L 500.4050, L506.1000, L100.0100, L501.9985 #### [facility] [address] [place], [address] Nucleated RBC (Bld) [#/Vol] 0 10*3/uL Normal 0-5 [facility] Comment on above: Order Comment: 134 Performed By: #### L 500.4050, L506.1000, L100.0100, L501.9985 #### [facility] [address] [place], [address] Platelet mean volume (Bld) [Entitic vol] 11.4 fL Normal 6.2-12.0 [facility] Comment on above: Order Comment: 134 Performed By: #### L 500.4050, L506.1000, L100.0100, L501.9985 #### [facility] [address] [place], [address] Platelets (Bld) [#/Vol] 107 10*3/uL Low 150-450 [facility] Comment on above: Order Comment: 134 Performed By: #### L 500.4050, L506.1000, L100.0100, L501.9985 #### [facility] [address] [place], [address] RBC (Bld) [#/Vol] 4.40 10*6/uL Normal 4.2-5.4 [facility] Comment on above: Order Comment: 134 Performed By: #### L 500.4050, L506.1000, L100.0100, L501.9985 #### [facility] [address] [place], [address] RDW SD 50.8 fl High 35.1-43.9 [facility] Comment on above: Order Comment: 134 Performed By: #### L 500.4050, L506.1000, L100.0100, L501.9985 #### [facility] [address] [place], [address] WBC (Bld) [#/Vol] 4.1 10*3/uL Low 4.4-11.0 [facility] Comment on above: Order Comment: 134 Performed By: #### L 500.4050, L506.1000, L100.0100, L501.9985 #### [facility] [address] [place], [address] Comprehensive Metabolic Prof iljúnior 04-09-2024 Albumin [Mass/Vol] 3.1 g/dL Low 3.2-5.0 [facility] Comment on above: Order Comment: 134 Performed By: #### L 500.4050, L506.1000, L100.0100, L501.9985 #### [facility] [address] [place], [address] Albumin/Globulin [Mass ratio] 0.7 {ratio} Low 0.9-2.4 [facility] Comment on above: Order Comment: 134 Performed By: #### L 500.4050, L506.1000, L100.0100, L501.9985 #### [facility] [address] [place], [address] ALK P 146 U/L High 45-117 [facility] Comment on above: Order Comment: 134 Performed By: #### L 500.4050, L506.1000, L100.0100, L501.9985 #### [facility] [address] [place], [address] ALT [Catalytic activity/Vol] 32 U/L Normal 13-56 [facility] Comment on above: Order Comment: 134 Performed By: #### L 500.4050, L506.1000, L100.0100, L501.9985 #### [facility] [address] [place], [address] AST [Catalytic activity/Vol] 36 U/L Normal 15-37 [facility] Comment on above: Order Comment: 134 Performed By: #### L 500.4050, L506.1000, L100.0100, L501.9985 #### [facility] [address] [place], [address] Bilirubin [Mass/Vol] 0.50 mg/dL Normal 0.20-1.00 [facility] Comment on above: Order Comment: 134 Result Comment: For patients on eltrombopag therapy, use of Dimension Morton TBIL is not recommended. Performed By: #### L 500.4050, L506.1000, L100.0100, L501.9985 #### [facility] [address] [place], [address] BUN/CRE 19.4 RATIO Normal 10-20 [facility] Comment on above: Order Comment: 134 Performed By: #### L 500.4050, L506.1000, L100.0100, L501.9985 #### [facility] [address] [place], [address] CA,Total 9.1 mg/dL Normal 8.5-10.1 [facility] Comment on above: Order Comment: 134 Performed By: #### L 500.4050, L506.1000, L100.0100, L501.9985 #### [facility] [address] [place], [address] Chloride [Moles/Vol] 109 mmol/L High 98-107 [facility] Comment on above: Order Comment: 134 Performed By: #### L 500.4050, L506.1000, L100.0100, L501.9985 #### [facility] [address] [place], [address] CO2 [Moles/Vol] 25.0 mmol/L Normal 21.0-32.0 [facility] Comment on above: Order Comment: 134 Performed By: #### L 500.4050, L506.1000, L100.0100, L501.9985 #### [facility] [address] [place], [address] Creatinine [Mass/Vol] 0.82 mg/dL Normal 0.55-1.02 [facility] Comment on above: Order Comment: 134 Result Comment: The validity of the calculated GFR GFRAA in patients over 70 years has not been determined. Clinical correlation is essential. Performed By: #### L 500.4050, L506.1000, L100.0100, L501.9985 #### [facility] [address] [place], [address] EST GFR - AA 88 mL/min Normal >60 [facility] Comment on above: Order Comment: 134 Result Comment: Afri can Italian GFR Calc Performed By: #### L 500.4050, L506.1000, L100.0100, L501.9985 #### [facility] [address] [place], [address] GAP 5 Normal 5-15 [facility] Comment on above: Order Comment: 134 Performed By: #### L 500.4050, L506.1000, L100.0100, L501.9985 #### [facility] [address] [place], [address] GFR/1.73 sq M.predicted among non-blacks MDRD (S/P/Bld) [Vol rate/Area] 73 mL/min/{1.73_m2} Normal >60 [facility] Comment on above: Order Comment: 134 Result Comment: Non- GFR Calc Performed By: #### L 500.4050, L506.1000, L100.0100, L501.9985 #### [facility] [address] [place], [address] Globulin (S) [Mass/Vol] 4.7 g/dL High 2.2-4.2 [facility] Comment on above: Order Comment: 134 Performed By: #### L 500.4050, L506.1000, L100.0100, L501.9985 #### [facility] [address] [place], [address] Glucose [Mass/Vol] 209 mg/dL High 74-106 [facility] Comment on above: Order Comment: 134 Result Comment: Gluc ose result greater than or equal to 200 mg/dL suggests DIABETES MELLITUS per A.D.A. criteria. Performed By: #### L 500.4050, L506.1000, L100.0100, L501.9985 #### [facility] [address] [place], [address] Potassium [Moles/Vol] 4.3 mmol/L Normal 3.5-5.1 [facility] Comment on above: Order Comment: 134 Performed By: #### L 500.4050, L506.1000, L100.0100, L501.9985 #### [facility] [address] [place], [address] Sodium [Moles/Vol] 139 mmol/L Normal 136-145 [facility] Comment on above: Order Comment: 134 Performed By: #### L 500.4050, L506.1000, L100.0100, L501.9985 #### [facility] [address] [place], [address] T PROT 7.8 g/dL Normal 6.4-8.2 [facility] Comment on above: Order Comment: 134 Performed By: #### L 500.4050, L506.1000, L100.0100, L501.9985 #### [facility] [address] [place], [address] Urea nitrogen [Mass/Vol] 16 mg/dL Normal 7-18 [facility] Comment on above: Order Comment: 134 Performed By: #### L 500.4050, L506.1000, L100.0100, L501.9985 #### [facility] [address] [place], [address] Hemoglobin A1con 04-09-2024 HbA1c (Bld) [Mass fraction] 7.9 % High 3.8-5.6 [facility] Comment on above: Order Comment: 134 Result Comment: Norm al < 5.7 % Prediabetic 5.7 - 6.4 % Diabetic >or= 6.5 % Please note range changes. Performed By: #### L 500.4050, L506.1000, L100.0100, L501.9985 #### [facility] [address] [place], [address] Vitamin D,25 Hydroxyon 04-09 Vitamin D 25-OH 40.0 ng/mL Normal [facility] Comment on above: Order Comment: 134 Result Comment: Maricarmen min D 25(OH) Status Range Deficiency <20 ng/mL (50nmol/L) Insufficiency 20 - 30 ng/mL (50 - 75 nmol/L) Sufficiency 30 - 100 ng/mL (75 - 250 nmol/L) Toxicity >100 ng/mL (>250 nmol/L) Performed By: #### L 500.4050, L506.1000, L100.0100, L501.9985 #### [facility] [address] [place], [address] CBC W/Diff, Automatedon 08-0 -2023 Absolute Lymph 1.07 X10 3/uL Normal 0.83-4.51 [facility] Comment on above: Performed By: #### L 506.1000, L100.0100, L501.9985, L500.4050 #### [facility] [address] [place], [address] Absolute Neut 2.9 X10 3/uL Normal 2.0-7.7 [facility] Comment on above: Performed By: #### L 506.1000, L100.0100, L501.9985, L500.4050 #### [facility] [address] [place], [address] Basophils/100 WBC (Bld) 0.7 % Normal 0-1 [facility] Comment on above: Performed By: #### L 506.1000, L100.0100, L501.9985, L500.4050 #### [facility] [address] [place], [address] Eosinophils/100 WBC (Bld) 3.9 % Normal 0-5 [facility] Comment on above: Performed By: #### L 506.1000, L100.0100, L501.9985, L500.4050 #### [facility] [address] [place], [address] Erythrocyte distribution width (RBC) [Ratio] 15.2 % High 11.6-14.6 [facility] Comment on above: Performed By: #### L 506.1000, L100.0100, L501.9985, L500.4050 #### [facility] [address] [place], [address] Hematocrit (Bld) [Volume fraction] 40.9 % Normal 37-47 [facility] Comment on above: Performed By: #### L 506.1000, L100.0100, L501.9985, L500.4050 #### [facility] [address] [place], [address] Hemoglobin (Bld) [Mass/Vol] 13.1 g/dL Normal 12.0-15.0 [facility] Comment on above: Performed By: #### L 506.1000, L100.0100, L501.9985, L500.4050 #### [facility] [address] [place], [address] IG% 0.400 Normal 0.0-0.9 [facility] Comment on above: Result Comment: IG% - Immature Granulocytes (promyelocytes, myelocytes and metamyelocytes) > 1% indicates that a LEFT SHIFT is Present. Performed By: #### L 506.1000, L100.0100, L501.9985, L500.4050 #### [facility] [address] [place], [address] Lymphocytes/100 WBC (Bld) 23.3 % Normal 19-41 [facility] Comment on above: Performed By: #### L 506.1000, L100.0100, L501.9985, L500.4050 #### [facility] [address] [place], [address] MCH (RBC) [Entitic mass] 29.0 pg Normal 27.0-32.0 [facility] Comment on above: Performed By: #### L 506.1000, L100.0100, L501.9985, L500.4050 #### [facility] [address] [place], [address] MCHC (RBC) [Mass/Vol] 32.0 g/dL Normal 32-36 [facility] Comment on above: Performed By: #### L 506.1000, L100.0100, L501.9985, L500.4050 #### [facility] [address] [place], [address] MCV (RBC) [Entitic vol] 90.7 fL Normal 81-99 [facility] Comment on above: Performed By: #### L 506.1000, L100.0100, L501.9985, L500.4050 #### [facility] [address] [place], [address] Monocytes/100 WBC (Bld) 9.2 % Normal 0-10 [facility] Comment on above: Performed By: #### L 506.1000, L100.0100, L501.9985, L500.4050 #### [facility] [address] [place], [address] Neutrophils/100 WBC (Bld) 62.5 % Normal 47-70 [facility] Comment on above: Performed By: #### L 506.1000, L100.0100, L501.9985, L500.4050 #### [facility] [address] [place], [address] Nucleated RBC (Bld) [#/Vol] 0 10*3/uL Normal 0-5 [facility] Comment on above: Performed By: #### L 506.1000, L100.0100, L501.9985, L500.4050 #### [facility] [address] [place], [address] Platelet mean volume (Bld) [Entitic vol] 11.7 fL Normal 6.2-12.0 [facility] Comment on above: Performed By: #### L 506.1000, L100.0100, L501.9985, L500.4050 #### [facility] [address] [place], [address] Platelets (Bld) [#/Vol] 110 10*3/uL Low 150-450 [facility] Comment on above: Performed By: #### L 506.1000, L100.0100, L501.9985, L500.4050 #### [facility] [address] [place], [address] RBC (Bld) [#/Vol] 4.51 10*6/uL Normal 4.2-5.4 [facility] Comment on above: Performed By: #### L 506.1000, L100.0100, L501.9985, L500.4050 #### [facility] [address] [place], [address] RDW SD 50.8 fl High 35.1-43.9 [facility] Comment on above: Performed By: #### L 506.1000, L100.0100, L501.9985, L500.4050 #### [facility] [address] [place], [address] WBC (Bld) [#/Vol] 4.6 10*3/uL Normal 4.4-11.0 [facility] Comment on above: Performed By: #### L 506.1000, L100.0100, L501.9985, L500.4050 #### [facility] [address] [place], [address] Comprehensive Metabolic Prof ilon 01-09-2024 Albumin [Mass/Vol] 2.9 g/dL Low 3.2-5.0 [facility] Comment on above: Order Comment: 134 Performed By: #### L 506.1000, L100.0100, L501.9985, L500.4050 #### [facility] [address] [place], [address] Albumin/Globulin [Mass ratio] 0.6 {ratio} Low 0.9-2.4 [facility] Comment on above: Order Comment: 134 Performed By: #### L 506.1000, L100.0100, L501.9985, L500.4050 #### [facility] [address] [place], [address] ALK P 148 U/L High 45-117 [facility] Comment on above: Order Comment: 134 Performed By: #### L 506.1000, L100.0100, L501.9985, L500.4050 #### [facility] [address] [place], [address] ALT [Catalytic activity/Vol] 37 U/L Normal 13-56 [facility] Comment on above: Order Comment: 134 Performed By: #### L 506.1000, L100.0100, L501.9985, L500.4050 #### [facility] [address] [place], [address] AST [Catalytic activity/Vol] 40 U/L High 15-37 [facility] Comment on above: Order Comment: 134 Performed By: #### L 506.1000, L100.0100, L501.9985, L500.4050 #### [facility] [address] [place], [address] Bilirubin [Mass/Vol] 0.40 mg/dL Normal 0.20-1.00 [facility] Comment on above: Order Comment: 134 Result Comment: For patients on eltrombopag therapy, use of Dimension Morton TBIL is not recommended. Performed By: #### L 506.1000, L100.0100, L501.9985, L500.4050 #### [facility] [address] [place], [address] BUN/CRE 20.9 RATIO High 10-20 [facility] Comment on above: Order Comment: 134 Performed By: #### L 506.1000, L100.0100, L501.9985, L500.4050 #### [facility] [address] [place], [address] CA,Total 9.0 mg/dL Normal 8.5-10.1 [facility] Comment on above: Order Comment: 134 Performed By: #### L 506.1000, L100.0100, L501.9985, L500.4050 #### [facility] [address] [place], [address] Chloride [Moles/Vol] 108 mmol/L High 98-107 [facility] Comment on above: Order Comment: 134 Performed By: #### L 506.1000, L100.0100, L501.9985, L500.4050 #### [facility] [address] [place], [address] CO2 [Moles/Vol] 25.0 mmol/L Normal 21.0-32.0 [facility] Comment on above: Order Comment: 134 Performed By: #### L 506.1000, L100.0100, L501.9985, L500.4050 #### [facility] [address] [place], [address] Creatinine [Mass/Vol] 0.96 mg/dL Normal 0.55-1.02 [facility] Comment on above: Order Comment: 134 Result Comment: The validity of the calculated GFR GFRAA in patients over 70 years has not been determined. Clinical correlation is essential. Performed By: #### L 506.1000, L100.0100, L501.9985, L500.4050 #### [facility] [address] [place], [address] EST GFR - AA 74 mL/min Normal >60 [facility] Comment on above: Order Comment: 134 Result Comment: Afri can Italian GFR Calc Performed By: #### L 506.1000, L100.0100, L501.9985, L500.4050 #### [facility] [address] [place], [address] GAP 6 Normal 5-15 [facility] Comment on above: Order Comment: 134 Performed By: #### L 506.1000, L100.0100, L501.9985, L500.4050 #### [facility] [address] [place], [address] GFR/1.73 sq M.predicted among non-blacks MDRD (S/P/Bld) [Vol rate/Area] 61 mL/min/{1.73_m2} Normal >60 [facility] Comment on above: Order Comment: 134 Result Comment: Non- GFR Calc Performed By: #### L 506.1000, L100.0100, L501.9985, L500.4050 #### [facility] [address] [place], [address] Globulin (S) [Mass/Vol] 5.0 g/dL High 2.2-4.2 [facility] Comment on above: Order Comment: 134 Performed By: #### L 506.1000, L100.0100, L501.9985, L500.4050 #### [facility] [address] [place], [address] Glucose [Mass/Vol] 219 mg/dL High 74-106 [facility] Comment on above: Order Comment: 134 Result Comment: Gluc ose result greater than or equal to 200 mg/dL suggests DIABETES MELLITUS per A.D.A. criteria. Performed By: #### L 506.1000, L100.0100, L501.9985, L500.4050 #### [facility] [address] [place], [address] Potassium [Moles/Vol] 4.9 mmol/L Normal 3.5-5.1 [facility] Comment on above: Order Comment: 134 Performed By: #### L 506.1000, L100.0100, L501.9985, L500.4050 #### [facility] [address] [place], [address] Sodium [Moles/Vol] 139 mmol/L Normal 136-145 [facility] Comment on above: Order Comment: 134 Performed By: #### L 506.1000, L100.0100, L501.9985, L500.4050 #### [facility] [address] [place], [address] T PROT 7.9 g/dL Normal 6.4-8.2 [facility] Comment on above: Order Comment: 134 Performed By: #### L 506.1000, L100.0100, L501.9985, L500.4050 #### [facility] [address] [place], [address] Urea nitrogen [Mass/Vol] 20 mg/dL High 7-18 [facility] Comment on above: Order Comment: 134 Performed By: #### L 506.1000, L100.0100, L501.9985, L500.4050 #### [facility] [address] [place], [address] Hemoglobin A1con 01-09-2024 HbA1c (Bld) [Mass fraction] 7.9 % High 3.8-5.6 [facility] Comment on above: Result Comment: Norm al < 5.7 % Prediabetic 5.7 - 6.4 % Diabetic >or= 6.5 % Please note range changes. Performed By: #### L 506.1000, L100.0100, L501.9985, L500.4050 #### [facility] [address] [place], [address] Vitamin D,25 Hydroxyon 01-08 Vitamin D 25-OH 52.9 ng/mL Normal [facility] Comment on above: Result Comment: Maricarmen min D 25(OH) Status Range Deficiency <20 ng/mL (50nmol/L) Insufficiency 20 - 30 ng/mL (50 - 75 nmol/L) Sufficiency 30 - 100 ng/mL (75 - 250 nmol/L) Toxicity >100 ng/mL (>250 nmol/L) Performed By: #### L 506.1000, L100.0100, L501.9985, L500.4050 #### [facility] [address] [place], [place], [address] Absolute lymphocyte countOrd ered By: Shayna Malhotra on 07-08-2023 Lymphocytes Auto (Unsp spec) [#/Vol] 0.97 10*3/uL 0.83-4.51 [facility] Automated lymphocyte count a s percentage of total leukocytesOrdered By: Shayna Malhotra on 07-08-2023 Lymphocytes/100 WBC Auto (Unsp spec) 21.6 % 19-41 [facility] Basophil percentageOrdered B y: Shayna Malhotra on 07-08-2023 Basophils/100 WBC (Bld) 0.7 % 0-1 [facility] Bilirubin [Mass/Vol] 0.60 mg/dL 0.20-1.00 [facility] Comment on above: For patients on eltr ombopag therapy, use of Dimension Morton TBIL is not recommended. Chloride [Moles/Vol] 109 mmol/L 98-107 [facility] Eosinophils/100 WBC (Bld) 2.4 % 0-5 [facility] Glucose [Mass/Vol] 204 mg/dL 74-106 [facility] Comment on above: Glucose result great er than or equal to 200 mg/dLsuggests DIABETES MELLITUS per A.D.A. criteria. Hemoglobin (Bld) [Mass/Vol] 12.6 g/dL 12.0-15.0 [facility] Monocytes/100 WBC (Bld) 8.7 % 0-10 [facility] Neutrophils (Bld) [#/Vol] 3.0 10*3/uL 2.0-7.7 [facility] Neutrophils/100 WBC (Bld) 66.4 % 47-70 [facility] Potassium [Moles/Vol] 4.4 mmol/L 3.5-5.1 [facility] Protein [Mass/Vol] 8.0 g/dL 6.4-8.2 [facility] Sodium [Moles/Vol] 137 mmol/L 136-145 [facility] WBC (Bld) [#/Vol] 4.5 10*3/uL 4.4-11.0 [facility] Determination of erythrocyte mean corpuscular volume (MCV)Ordered By: Shayna Malhotra on 07-08-2023 MCV (RBC) [Entitic vol] 90.3 fL 81-99 [facility] Erythrocyte distribution wid th ratioOrdered By: Shaynadesi Malhotra on 07-08-2023 Erythrocyte distribution width (RBC) [Ratio] 15.5 % 11.6-14.6 [facility] Erythrocyte distribution wid th standard deviationOrdered By: Shayna Malhotra on 07-08-2023 Erythrocyte distribution width (RBC) [Entitic vol] 51.9 fL 35.1-43.9 [facility] Hematocrit Auto (Bld) [Volum e fraction]Ordered By: Shayna Malhotra on 07-08-2023 Hematocrit (Bld) [Volume fraction] 39.9 % 37-47 [facility] Immature granulocytes/100 WB C Auto (Bld)Ordered By: Shayna Malhotra on 07-08-2023 Immature granulocytes/100 WBC (Bld) 0.200 % 0.0-0.9 [facility] Comment on above: IG% - Immature Granu locytes (promyelocytes, myelocytes and metamyelocytes) > 1% indicates that a LEFT SHIFT is Present. Laboratory - Chemistry and C hemistry - challengeOrdered By: Shayna Malhotra on 07-08-2023 Albumin/Globulin [Mass ratio] 0.7 {ratio} 0.9-2.4 [facility] ALP [Catalytic activity/Vol] 126 U/L 45-117 [facility] ALT [Catalytic activity/Vol] 34 U/L 13-56 [facility] CO2 [Moles/Vol] 24.0 mmol/L 21.0-32.0 [facility] Globulin (S) [Mass/Vol] 4.7 g/dL 2.2-4.2 [facility] Urea nitrogen/Creatinine [Mass ratio] 17.2 mg/mg 10-20 [facility] - Hematology and Cell countsOrdered By: Shayna Malhotra on 07-08-2023 MCH (RBC) [Entitic mass] 28.5 pg 27.0-32.0 [facility] MCHC (RBC) [Mass/Vol] 31.6 g/dL 32-36 [facility] Nucleated RBC/100 WBC (Bld) [Ratio] 0 % 0-5 [facility] Platelets (Bld) [#/Vol] 130 10*3/uL 150-450 [facility] No Panel InformationOrdered By: Shayna Malhotra on 07-08-2023 Estimated GFR (MDRD) Amer 83 mL/min >60 [facility] Comment on above: GFR Calc Estimated GFR (MDRD) Non-Af Amer 68 mL/min >60 [facility] Comment on above: Non- GFR Calc Vitamin D 25-Hydroxy 36.2 ng/mL [facility] Comment on above: Vitamin D 25(OH) Sta tus Range Deficiency <20 ng/mL (50nmol/L) Insufficiency 20 - 30 ng/mL (50 - 75 nmol/L) Sufficiency 30 - 100 ng/mL (75 - 250 nmol/L) Toxicity >100 ng/mL (>250 nmol/L) Platelet mean volume Robert-Ec ker (Bld) [Entitic vol]Ordered By: Shayna Malhotra on 07-08-2023 Platelet mean volume (Bld) [Entitic vol] 11.5 fL 6.2-12.0 [facility] RBC Auto (Bld) [#/Vol]Ordere d By: Shayna Malhotra on 07-08-2023 RBC (Bld) [#/Vol] 4.42 10*6/uL 4.2-5.4 [facility] Serum or plasma calcium kim urement (mass/volume)Ordered By: Shayna Malhotra on 07-08-2023 Calcium [Mass/Vol] 9.3 mg/dL 8.5-10.1 [facility] Serum or plasma creatinine m easurement (mass/volume)Ordered By: Shayna Malhotra on 07-08-2023 Creatinine [Mass/Vol] 0.87 mg/dL 0.55-1.02 [facility] Comment on above: The validity of the calculated GFR & GFRAA in patients over 70 years has not been determined. Clinical correlation is essential. Serum or plasma urea nitroge n measurement (mass/volume)Ordered By: Shayna Malhotra on 07-08-2023 Urea nitrogen [Mass/Vol] 15 mg/dL 7-18 [facility] Thin prep Papanicolaou smear with manual screeningOrdered By: Shayna Malhotra on 07-08-2023 Thin prep Papanicolaou smear with manual screening 3.3 g/dL 3.2-5.0 [facility] Thin prep Papanicolaou smear with manual screening 38 U/L 15-37 [facility] Thin prep Papanicolaou smear with manual screening 4 5-15 [facility] Whole blood hemoglobin A1c/t otal hemoglobin ratio (mass fraction)Ordered By: Shayna Malhotra on 07-08-2023 HbA1c (Bld) [Mass fraction] 7.5 % 3.8-5.6 [facility] Comment on above: Normal < 5.7 % Predi abetic 5.7 - 6.4 % Diabetic >or= 6.5 % Please note range changes. Absolute lymphocyte countOrd ered By: [facility] on 04-08-2023 Lymphocytes Auto (Unsp spec) [#/Vol] 1.16 10*3/uL 0.83-4.51 [facility] Basophil percentageOrdered B y: [facility] on 04-08-2023 Basophils/100 WBC (Bld) 0.6 % 0-1 [facility] Bilirubin [Mass/Vol] 0.60 mg/dL 0.20-1.00 [facility] Comment on above: For patients on eltr ombopag therapy, use of Dimension Morton TBIL is not recommended. Chloride [Moles/Vol] 106 mmol/L 98-107 [facility] Eosinophils/100 WBC (Bld) 2.6 % 0-5 [facility] Glucose [Mass/Vol] 200 mg/dL 74-106 [facility] Comment on above: Glucose result great er than or equal to 200 mg/dLsuggests DIABETES MELLITUS per A.D.A. criteria. Neutrophils (Bld) [#/Vol] 3.3 10*3/uL 2.0-7.7 [facility] Neutrophils/100 WBC (Bld) 65.4 % 47-70 [facility] Potassium [Moles/Vol] 4.2 mmol/L 3.5-5.1 [facility] Protein [Mass/Vol] 8.1 g/dL 6.4-8.2 [facility] Sodium [Moles/Vol] 136 mmol/L 136-145 [facility] WBC (Bld) [#/Vol] 5.0 10*3/uL 4.4-11.0 [facility] Blood erythrocytes count (nu mber/volume)Ordered By: [facility] on 04-08-2023 RBC (Bld) [#/Vol] 4.50 10*6/uL 4.2-5.4 [facility] Blood hemoglobin measurement (mass/volume)Ordered By: [facility] on 04-08-2023 Hemoglobin (Bld) [Mass/Vol] 12.9 g/dL 12.0-15.0 [facility] Blood lymphocytes/100 leukoc ytesOrdered By: [facility] on 04-08-2023 Lymphocytes/100 WBC (Bld) 23.2 % 19-41 [facility] Blood monocytes/100 leukocyt esOrdered By: [facility] on 04-08-2023 Monocytes/100 WBC (Bld) 7.8 % 0-10 [facility] Blood platelet mean volumeOr dered By: [facility] on 04-08-2023 Platelet mean volume (Bld) [Entitic vol] 11.9 fL 6.2-12.0 [facility] Determination of erythrocyte mean corpuscular volume (MCV)Ordered By: [facility] on 04-08-2023 MCV (RBC) [Entitic vol] 89.6 fL 81-99 [facility] Hematocrit Auto (Bld) [Volum e fraction]Ordered By: [facility] on 04-08-2023 Hematocrit (Bld) [Volume fraction] 40.3 % 37-47 [facility] - Chemistry and C hemistry - challengeOrdered By: [facility] on 04-08-2023 ALP [Catalytic activity/Vol] 126 U/L 45-117 [facility] ALT [Catalytic activity/Vol] 35 U/L 13-56 [facility] CO2 [Moles/Vol] 24.0 mmol/L 21.0-32.0 [facility] Globulin (S) [Mass/Vol] 4.9 g/dL 2.2-4.2 [facility] Urea nitrogen/Creatinine [Mass ratio] 17.1 mg/mg 10-20 [facility] - Hematology and Cell countsOrdered By: [facility] on 04-08-2023 Erythrocyte distribution width (RBC) [Entitic vol] 51.4 fL 35.1-43.9 [facility] Erythrocyte distribution width (RBC) [Ratio] 15.6 % 11.6-14.6 [facility] Immature granulocytes/100 WBC (Bld) 0.400 % 0.0-0.9 [facility] Comment on above: IG% - Immature Granu locytes (promyelocytes, myelocytes and metamyelocytes) > 1% indicates that a LEFT SHIFT is Present. MCH (RBC) [Entitic mass] 28.7 pg 27.0-32.0 [facility] Nucleated RBC/100 WBC (Bld) [Ratio] 0 % 0-5 [facility] MCHC Auto (RBC) [Mass/Vol]Or dered By: [facility] on 04-08-2023 MCHC (RBC) [Mass/Vol] 32.0 g/dL 32-36 [facility] No Panel InformationOrdered By: [facility] on 04-08-2023 Estimated GFR (MDRD) Amer 82 mL/min >60 [facility] Comment on above: GFR Calc Estimated GFR (MDRD) Non-Af Amer 68 mL/min >60 [facility] Comment on above: Non- GFR Calc Vitamin D 25-Hydroxy 43.2 ng/mL [facility] Comment on above: Vitamin D 25(OH) Sta tus Range Deficiency <20 ng/mL (50nmol/L) Insufficiency 20 - 30 ng/mL (50 - 75 nmol/L) Sufficiency 30 - 100 ng/mL (75 - 250 nmol/L) Toxicity >100 ng/mL (>250 nmol/L) Platelets bldOrdered By: [facility] on 04-08-[facility]23 Platelets (Bld) [#/Vol] 119 10*3/uL 150-450 [facility] Serum or plasma albumin kim urement (mass/volume)Ordered By: [facility] on 04-08-2023 Albumin [Mass/Vol] 3.2 g/dL 3.2-5.0 [facility] Serum or plasma albumin/glob ulin mass ratioOrdered By: [facility] on 04-08-2023 Albumin/Globulin [Mass ratio] 0.7 {ratio} 0.9-2.4 [facility] Serum or plasma calcium kim urement (mass/volume)Ordered By: [facility] on 04-08-2023 Calcium [Mass/Vol] 9.1 mg/dL 8.5-10.1 [facility] [facility] Serum or plasma creatinine m easurement (mass/volume)Ordered By: [facility] on 04-08-2023 Creatinine [Mass/Vol] 0.88 mg/dL 0.55-1.02 [facility] Comment on above: The validity of the calculated GFR & GFRAA in patients over 70 years has not been determined. Clinical correlation is essential. Serum or plasma urea nitroge n measurement (mass/volume)Ordered By: [facility] on 04-08-2023 Urea nitrogen [Mass/Vol] 15 mg/dL 7-18 [facility] Thin prep Papanicolaou smear with manual screeningOrdered By: [facility] on 04-08-2023 Thin prep Papanicolaou smear with manual screening 36 U/L 15-37 [facility] Thin prep Papanicolaou smear with manual screening 6 5-15 [facility] Whole blood hemoglobin A1c/t otal hemoglobin ratio (mass fraction)Ordered By: [facility] on 04-08-2023 HbA1c (Bld) [Mass fraction] 7.5 % 3.8-5.6 [facility] Comment on above: Normal < 5.7 % Predi abetic 5.7 - 6.4 % Diabetic >or= 6.5 % Please note range changes. Absolute lymphocyte countOrd ered By: Shayna Malhotra on 10-13-2022 Lymphocytes Auto (Unsp spec) [#/Vol] 1.32 10*3/uL 0.83-4.51 [facility] Basophil percentageOrdered B y: Shayna Malhotra on 10-13-2022 Basophils/100 WBC (Bld) 0.6 % 0-1 [facility] Bilirubin [Mass/Vol] 0.40 mg/dL 0.20-1.00 [facility] Comment on above: For patients on eltr ombopag therapy, use of Dimension Morton TBIL is not recommended. Chloride [Moles/Vol] 106 mmol/L 98-107 [facility] Eosinophils/100 WBC (Bld) 3.5 % 0-5 [facility] Glucose [Mass/Vol] 232 mg/dL 74-106 [facility] Comment on above: Glucose result great er than or equal to 200 mg/dLsuggests DIABETES MELLITUS per A.D.A. criteria. Neutrophils (Bld) [#/Vol] 3.2 10*3/uL 2.0-7.7 [facility] Neutrophils/100 WBC (Bld) 60.7 % 47-70 [facility] Potassium [Moles/Vol] 4.7 mmol/L 3.5-5.1 [facility] Protein [Mass/Vol] 8.1 g/dL 6.4-8.2 [facility] Sodium [Moles/Vol] 137 mmol/L 136-145 [facility] WBC (Bld) [#/Vol] 5.2 10*3/uL 4.4-11.0 [facility] Blood erythrocytes count (nu mber/volume)Ordered By: Shayna Malhotra on 10-13-2022 RBC (Bld) [#/Vol] 4.62 10*6/uL 4.2-5.4 [facility] Blood hemoglobin measurement (mass/volume)Ordered By: Shayna Malhotra on 10-13-2022 Hemoglobin (Bld) [Mass/Vol] 13.1 g/dL 12.0-15.0 [facility] Blood lymphocytes/100 leukoc ytesOrdered By: Shayna Malhotra on 10-13-2022 Lymphocytes/100 WBC (Bld) 25.4 % 19-41 [facility] Blood monocytes/100 leukocyt esOrdered By: Shayna Malhotra on 10-13-2022 Monocytes/100 WBC (Bld) 9.6 % 0-10 [facility] Blood platelet mean volumeOr dered By: Shayna Malhotra on 10-13-2022 Platelet mean volume (Bld) [Entitic vol] 11.1 fL 6.2-12.0 [facility] Determination of erythrocyte mean corpuscular volume (MCV)Ordered By: Shayna Malhotra on 10-13-2022 MCV (RBC) [Entitic vol] 90.3 fL 81-99 [facility] Hematocrit Auto (Bld) [Volum e fraction]Ordered By: Shayna Malhotra on 10-13-2022 Hematocrit (Bld) [Volume fraction] 41.7 % 37-47 [facility] Laboratory - Chemistry and C hemistry - challengeOrdered By: Shayna Malhotra on 10-13-2022 ALP [Catalytic activity/Vol] 153 U/L 45-117 [facility] ALT [Catalytic activity/Vol] 45 U/L 13-56 [facility] CO2 [Moles/Vol] 25.0 mmol/L 21.0-32.0 [facility] Globulin (S) [Mass/Vol] 4.9 g/dL 2.2-4.2 [facility] Urea nitrogen/Creatinine [Mass ratio] 15.7 mg/mg 10-20 [facility] Laboratory - Hematology and Cell countsOrdered By: Shayna Malhotra on 10-13-2022 Erythrocyte distribution width (RBC) [Entitic vol] 50.5 fL 35.1-43.9 [facility] Erythrocyte distribution width (RBC) [Ratio] 15.1 % 11.6-14.6 [facility] Immature granulocytes/100 WBC (Bld) 0.200 % 0.0-0.9 [facility] Comment on above: IG% - Immature Granu locytes (promyelocytes, myelocytes and metamyelocytes) > 1% indicates that a LEFT SHIFT is Present. MCH (RBC) [Entitic mass] 28.4 pg 27.0-32.0 [facility] Nucleated RBC/100 WBC (Bld) [Ratio] 0 % 0-5 [facility] MCHC Auto (RBC) [Mass/Vol]Or dered By: Shayna Malhotra on 10-13-2022 MCHC (RBC) [Mass/Vol] 31.4 g/dL 32-36 [facility] No Panel InformationOrdered By: Shayna Malhotra on 10-13-2022 Estimated GFR (MDRD) Amer 80 mL/min >60 [facility] Comment on above: GFR Calc Estimated GFR (MDRD) Non-Af Amer 66 mL/min >60 [facility] Comment on above: Non- GFR Calc Vitamin D 25-Hydroxy 57.3 ng/mL [facility] Comment on above: Vitamin D 25(OH) Sta tus Range Deficiency <20 ng/mL (50nmol/L) Insufficiency 20 - 30 ng/mL (50 - 75 nmol/L) Sufficiency 30 - 100 ng/mL (75 - 250 nmol/L) Toxicity >100 ng/mL (>250 nmol/L) Platelets bldOrdered By: Evi Malhotra on 10-13-2022 Platelets (Bld) [#/Vol] 139 10*3/uL 150-450 [facility] Serum or plasma albumin kim urement (mass/volume)Ordered By: Shayna Malhotra on 10-13-2022 Albumin [Mass/Vol] 3.2 g/dL 3.2-5.0 [facility] Serum or plasma albumin/glob ulin mass ratioOrdered By: Shayna Malhotra on 10-13-2022 Albumin/Globulin [Mass ratio] 0.7 {ratio} 0.9-2.4 [facility] Serum or plasma calcium kim urement (mass/volume)Ordered By: Shayna Malhotra on 10-13-2022 Calcium [Mass/Vol] 9.5 mg/dL 8.5-10.1 [facility] Serum or plasma creatinine m easurement (mass/volume)Ordered By: Shayna Malhotra on 10-13-2022 Creatinine [Mass/Vol] 0.89 mg/dL 0.55-1.02 [facility] Comment on above: The validity of the calculated GFR & GFRAA in patients over 70 years has not been determined. Clinical correlation is essential. Serum or plasma urea nitroge n measurement (mass/volume)Ordered By: Shayna Malhotra on 10-13-2022 Urea nitrogen [Mass/Vol] 14 mg/dL 7-18 [facility] Thin prep Papanicolaou smear with manual screeningOrdered By: Shayna Malhotra on 10-13-2022 Thin prep Papanicolaou smear with manual screening 49 U/L 15-37 [facility] Thin prep Papanicolaou smear with manual screening 6 5-15 [facility] No Panel InformationOrdered By: Shayna Malhotra on 08-12-2022 C-Peptide 2.9 ng/mL 1.1-4.4 [facility] Comment on above: C-Peptide reference interval is for fasting patients.Performed at: [facility] Director: Suhas Deal PhD, Phone: [phone] Absolute lymphocyte countOrd ered By: Shayna Malhotra on 07-13-2022 Lymphocytes Auto (Unsp spec) [#/Vol] 1.18 10*3/uL 0.83-4.51 [facility] Basophil percentageOrdered B y: Shayna Malhotra on 07-13-2022 Basophils/100 WBC (Bld) 0.7 % 0-1 [facility] Bilirubin [Mass/Vol] 0.90 mg/dL 0.20-1.00 [facility] Comment on above: For patients on eltr ombopag therapy, use of Dimension [place] TBIL is not recommended. Chloride [Moles/Vol] 104 mmol/L 98-107 [facility] Eosinophils/100 WBC (Bld) 3.3 % 0-5 [facility] Glucose [Mass/Vol] 314 mg/dL 74-106 [facility] Comment on above: Glucose result great er than or equal to 200 mg/dLsuggests DIABETES MELLITUS per A.D.A. criteria. Neutrophils (Bld) [#/Vol] 3.5 10*3/uL 2.0-7.7 [facility] Neutrophils/100 WBC (Bld) 64.8 % 47-70 [facility] Potassium [Moles/Vol] 5.1 mmol/L 3.5-5.1 [facility] Comment on above: Slight Hemolysis, Re sult may be falsely increased. Protein [Mass/Vol] 8.2 g/dL 6.4-8.2 [facility] Sodium [Moles/Vol] 135 mmol/L 136-145 [facility] WBC (Bld) [#/Vol] 5.4 10*3/uL 4.4-11.0 [facility] Blood erythrocytes count (nu mber/volume)Ordered By: Shayna Malhotra on 07-13-2022 RBC (Bld) [#/Vol] 4.51 10*6/uL 4.2-5.4 [facility] Blood hemoglobin measurement (mass/volume)Ordered By: Shayna Malhotra on 07-13-2022 Hemoglobin (Bld) [Mass/Vol] 12.8 g/dL 12.0-15.0 [facility] Blood lymphocytes/100 leukoc ytesOrdered By: Shayna Malhotra on 07-13-2022 Lymphocytes/100 WBC (Bld) 21.9 % 19-41 [facility] Blood monocytes/100 leukocyt esOrdered By: Shayna Malhotra on 07-13-2022 Monocytes/100 WBC (Bld) 9.1 % 0-10 [facility] Blood platelet mean volumeOr dered By: Shayna Malhotra on 07-13-2022 Platelet mean volume (Bld) [Entitic vol] 11.2 fL 6.2-12.0 [facility] Determination of erythrocyte mean corpuscular volume (MCV)Ordered By: Shayna Malhotra on 07-13-2022 MCV (RBC) [Entitic vol] 87.1 fL 81-99 [facility] Hematocrit Auto (Bld) [Volum e fraction]Ordered By: Shayna Malhotra on 07-13-2022 Hematocrit (Bld) [Volume fraction] 39.3 % 37-47 [facility] Laboratory - Chemistry and C hemistry - challengeOrdered By: Shayna Malhotra on 07-13-2022 ALP [Catalytic activity/Vol] 159 U/L 45-117 [facility] ALT [Catalytic activity/Vol] 35 U/L 13-56 [facility] CO2 [Moles/Vol] 23.0 mmol/L 21.0-32.0 [facility] Globulin (S) [Mass/Vol] 4.9 g/dL 2.2-4.2 [facility] Urea nitrogen/Creatinine [Mass ratio] 16.6 mg/mg 10-20 [facility] - Hematology and Cell countsOrdered By: Shayna Malhotra on 07-13-2022 Erythrocyte distribution width (RBC) [Entitic vol] 49.6 fL 35.1-43.9 [facility] Erythrocyte distribution width (RBC) [Ratio] 15.7 % 11.6-14.6 [facility] Immature granulocytes/100 WBC (Bld) 0.200 % 0.0-0.9 [facility] Comment on above: IG% - Immature Granu locytes (promyelocytes, myelocytes and metamyelocytes) > 1% indicates that a LEFT SHIFT is Present. MCH (RBC) [Entitic mass] 28.4 pg 27.0-32.0 [facility] Nucleated RBC/100 WBC (Bld) [Ratio] 0 % 0-5 [facility] MCHC Auto (RBC) [Mass/Vol]Or dered By: Shayna Malhotra on 07-13-2022 MCHC (RBC) [Mass/Vol] 32.6 g/dL 32-36 [facility] No Panel InformationOrdered By: Shayna Malhotra on 07-13-2022 Estimated GFR (MDRD) Amer 74 mL/min >60 [facility] Comment on above: GFR Calc Estimated GFR (MDRD) Non-Af Amer 61 mL/min >60 [facility] Comment on above: Non- GFR Calc Vitamin D 25-Hydroxy 47.5 ng/mL [facility] Comment on above: Vitamin D 25(OH) Sta tus Range Deficiency <20 ng/mL (50nmol/L) Insufficiency 20 - 30 ng/mL (50 - 75 nmol/L) Sufficiency 30 - 100 ng/mL (75 - 250 nmol/L) Toxicity >100 ng/mL (>250 nmol/L) Platelets bldOrdered By: Evi Malhotra on 07-13-2022 Platelets (Bld) [#/Vol] 132 10*3/uL 150-450 [facility] Serum or plasma albumin kim urement (mass/volume)Ordered By: Shayna Malhotra on 07-13-2022 Albumin [Mass/Vol] 3.3 g/dL 3.2-5.0 [facility] Serum or plasma albumin/glob ulin mass ratioOrdered By: Shayna Malhotra on 07-13-2022 Albumin/Globulin [Mass ratio] 0.7 {ratio} 0.9-2.4 [facility] Serum or plasma calcium kim urement (mass/volume)Ordered By: Shayna Malhotra on 07-13-2022 Calcium [Mass/Vol] 9.6 mg/dL 8.5-10.1 [facility] Serum or plasma creatinine m easurement (mass/volume)Ordered By: Shayna Malhotra on 07-13-2022 Creatinine [Mass/Vol] 0.97 mg/dL 0.55-1.02 [facility] Comment on above: The validity of the calculated GFR & GFRAA in patients over 70 years has not been determined. Clinical correlation is essential. Serum or plasma urea nitroge n measurement (mass/volume)Ordered By: Shayna Malhotra on 07-13-2022 Urea nitrogen [Mass/Vol] 16 mg/dL 7-18 [facility] Thin prep Papanicolaou smear with manual screeningOrdered By: Shayna Malhotra on 07-13-2022 Thin prep Papanicolaou smear with manual screening 48 U/L 15-37 [facility] Comment on above: Slight Hemolysis, Re sult may be falsely increased. Thin prep Papanicolaou smear with manual screening 8 5-15 [facility] Absolute lymphocyte countOrd ered By: [facility] on 06-08-2022 Lymphocytes Auto (Unsp spec) [#/Vol] 1.23 10*3/uL 0.83-4.51 [facility] Basophil percentageOrdered B y: [facility] on 06-08-2022 Basophils/100 WBC (Bld) 0.6 % 0-1 [facility] Bilirubin [Mass/Vol] 0.50 mg/dL 0.20-1.00 [facility] Comment on above: For patients on eltr ombopag therapy, use of Dimension [place] TBIL is not recommended. Chloride [Moles/Vol] 103 mmol/L 98-107 [facility] Cholesterol [Mass/Vol] 116 mg/dL <200 [facility] Comment on above: <200 mg/dL Desirable 200-240 mg/dL Borderline >240 mg/dL High Risk Eosinophils/100 WBC (Bld) 3.3 % 0-5 [facility] Glucose [Mass/Vol] 266 mg/dL 74-106 [facility] Comment on above: Glucose result great er than or equal to 200 mg/dLsuggests DIABETES MELLITUS per A.D.A. criteria. Neutrophils (Bld) [#/Vol] 2.9 10*3/uL 2.0-7.7 [facility] Neutrophils/100 WBC (Bld) 61.4 % 47-70 [facility] Potassium [Moles/Vol] 4.3 mmol/L 3.5-5.1 [facility] Protein [Mass/Vol] 7.6 g/dL 6.4-8.2 [facility] Sodium [Moles/Vol] 134 mmol/L 136-145 [facility] Triglyceride [Mass/Vol] 86 mg/dL <199 [facility] Comment on above: The drugs N-Acetylcy steine and Metamizole may falsely depress this assay.Serum Triglycerides Reference Interval Normal <150 mg/dL Borderline high 150 - 199 mg/dL High 200 - 499 mg/dL Very High > or = 500 mg/dL WBC (Bld) [#/Vol] 4.8 10*3/uL 4.4-11.0 [facility] Blood erythrocytes count (nu mber/volume)Ordered By: [facility] on 06-08-2022 RBC (Bld) [#/Vol] 4.47 10*6/uL 4.2-5.4 [facility] Blood hemoglobin measurement (mass/volume)Ordered By: [facility] on 06-08-2022 Hemoglobin (Bld) [Mass/Vol] 12.4 g/dL 12.0-15.0 [facility] Blood lymphocytes/100 leukoc ytesOrdered By: [facility] ([facility] on 06-08-2022 Lymphocytes/100 WBC (Bld) 25.7 % 19-41 [facility] Blood monocytes/100 leukocyt esOrdered By: [facility] ([facility] on 06-08-2022 Monocytes/100 WBC (Bld) 8.8 % 0-10 [facility] Blood platelet mean volumeOr dered By: [facility] ([facility] on 06-08-2022 Platelet mean volume (Bld) [Entitic vol] 11.1 fL 6.2-12.0 [facility] Determination of erythrocyte mean corpuscular volume (MCV)Ordered By: [facility] on 06-08-2022 MCV (RBC) [Entitic vol] 88.8 fL 81-99 [facility] Hematocrit Auto (Bld) [Volum e fraction]Ordered By: [facility] on 06-08-2022 Hematocrit (Bld) [Volume fraction] 39.7 % 37-47 [facility] Laboratory - Chemistry and C hemistry - challengeOrdered By: [facility] ([facility] on 06-08-2022 ALP [Catalytic activity/Vol] 142 U/L 45-117 [facility] ALT [Catalytic activity/Vol] 36 U/L 13-56 [facility] CO2 [Moles/Vol] 22.0 mmol/L 21.0-32.0 [facility] Globulin (S) [Mass/Vol] 4.8 g/dL 2.2-4.2 [facility] Urea nitrogen/Creatinine [Mass ratio] 17.1 mg/mg 10-20 [facility] - Hematology and Cell countsOrdered By: [facility] on 06-08-2022 Erythrocyte distribution width (RBC) [Entitic vol] 48.8 fL 35.1-43.9 [facility] Erythrocyte distribution width (RBC) [Ratio] 14.9 % 11.6-14.6 [facility] Immature granulocytes/100 WBC (Bld) 0.200 % 0.0-0.9 [facility] Comment on above: IG% - Immature Granu locytes (promyelocytes, myelocytes and metamyelocytes) > 1% indicates that a LEFT SHIFT is Present. MCH (RBC) [Entitic mass] 27.7 pg 27.0-32.0 [facility] Nucleated RBC/100 WBC (Bld) [Ratio] 0 % 0-5 [facility] MCHC Auto (RBC) [Mass/Vol]Or dered By: [facility] on 06-08-2022 MCHC (RBC) [Mass/Vol] 31.2 g/dL 32-36 [facility] No Panel InformationOrdered By: [facility] ([facility] on 06-08-2022 Estimated GFR (MDRD) Amer 82 mL/min >60 [facility] Comment on above: GFR Calc Estimated GFR (MDRD) Non-Af Amer 68 mL/min >60 [facility] Comment on above: Non- GFR Calc Vitamin D 25-Hydroxy 56.8 ng/mL [facility] Comment on above: Vitamin D 25(OH) Sta tus Range Deficiency <20 ng/mL (50nmol/L) Insufficiency 20 - 30 ng/mL (50 - 75 nmol/L) Sufficiency 30 - 100 ng/mL (75 - 250 nmol/L) Toxicity >100 ng/mL (>250 nmol/L) Platelets bldOrdered By: [facility] on 06-08-[facility] Platelets (Bld) [#/Vol] 145 10*3/uL 150-450 [facility] Serum or plasma albumin kim urement (mass/volume)Ordered By: [facility] ([facility] on 06-08-2022 Albumin [Mass/Vol] 2.8 g/dL 3.2-5.0 [facility] Serum or plasma albumin/glob ulin mass ratioOrdered By: [facility] ([facility] on 06-08-2022 Albumin/Globulin [Mass ratio] 0.6 {ratio} 0.9-2.4 [facility] Serum or plasma calcium kim urement (mass/volume)Ordered By: [facility] on 06-08-2022 Calcium [Mass/Vol] 9.0 mg/dL 8.5-10.1 [facility] Serum or plasma cholesterol in HDL measurement (mass/volume)Ordered By: [facility] on 06-08-2022 Cholesterol in HDL [Mass/Vol] 58 mg/dL >40 [facility] Comment on above: The drugs N-Acetylcy steine and Metamizole may falsely depress this assay. Reference Range HDL <40 mg/dL Low HDL Cholesterol HDL >or= 60 mg/dL High HDL Cholesterol Serum or plasma cholesterol in VLDL measurement (mass/volume)Ordered By: [facility] on 06-08-2022 Cholesterol in VLDL [Mass/Vol] 17 mg/dL 5-40 [facility] Serum or plasma creatinine m easurement (mass/volume)Ordered By: [facility] ([facility] on 06-08-2022 Creatinine [Mass/Vol] 0.88 mg/dL 0.55-1.02 [facility] Comment on above: The validity of the calculated GFR & GFRAA in patients over 70 years has not been determined. Clinical correlation is essential. Serum or plasma low density lipoprotein (LDL) cholesterol measurement (mass/volume)Ordered By: [facility] on 06-08-2022 Cholesterol in LDL [Mass/Vol] 41 mg/dL 0-130 [facility] Serum or plasma urea nitroge n measurement (mass/volume)Ordered By: [facility] ([facility] on 06-08-2022 Urea nitrogen [Mass/Vol] 15 mg/dL 7-18 [facility] Thin prep Papanicolaou smear with manual screeningOrdered By: [facility] ([facility] on 06-08-2022 Thin prep Papanicolaou smear with manual screening 39 U/L 15-37 [facility] Thin prep Papanicolaou smear with manual screening 9 5-15 [facility] Whole blood hemoglobin A1c/t otal hemoglobin ratio (mass fraction)Ordered By: [facility] on 06-08-2022 HbA1c (Bld) [Mass fraction] 8.8 % 3.8-5.6 [facility] Comment on above: Normal < 5.7 % Predi abetic 5.7 - 6.4 % Diabetic >or= 6.5 % Please note range changes. Absolute lymphocyte countOrd ered By: Shayna Malhotra on 04-13-2022 Lymphocytes Auto (Unsp spec) [#/Vol] 1.30 10*3/uL 0.83-4.51 [facility] Basophil percentageOrdered B y: Shayna Malhotra on 04-13-2022 Basophils/100 WBC (Bld) 0.2 % 0-1 [facility] Bilirubin [Mass/Vol] 0.40 mg/dL 0.20-1.00 [facility] Comment on above: For patients on eltr ombopag therapy, use of Dimension [place] TBIL is not recommended. Chloride [Moles/Vol] 106 mmol/L 98-107 [facility] Eosinophils/100 WBC (Bld) 3.5 % 0-5 [facility] Glucose [Mass/Vol] 149 mg/dL 74-106 [facility] Comment on above: Fasting Glucose resu lt greater than or equal to 126 mg/dL suggests DIABETES MELLITUS per A.D.A. criteria. Neutrophils (Bld) [#/Vol] 2.5 10*3/uL 2.0-7.7 [facility] Neutrophils/100 WBC (Bld) 54.6 % 47-70 [facility] Potassium [Moles/Vol] 4.5 mmol/L 3.5-5.1 [facility] Protein [Mass/Vol] 7.8 g/dL 6.4-8.2 [facility] Sodium [Moles/Vol] 138 mmol/L 136-145 [facility] WBC (Bld) [#/Vol] 4.6 10*3/uL 4.4-11.0 [facility] Blood erythrocytes count (nu mber/volume)Ordered By: Shayna Malhotra on 04-13-2022 RBC (Bld) [#/Vol] 4.45 10*6/uL 4.2-5.4 [facility] Blood hemoglobin measurement (mass/volume)Ordered By: Shayna Malhotra on 04-13-2022 Hemoglobin (Bld) [Mass/Vol] 12.9 g/dL 12.0-15.0 [facility] Blood lymphocytes/100 leukoc ytesOrdered By: Shayna Malhotra on 04-13-2022 Lymphocytes/100 WBC (Bld) 28.4 % 19-41 [facility] Blood monocytes/100 leukocyt esOrdered By: Shayna Malhotra on 04-13-2022 Monocytes/100 WBC (Bld) 12.9 % 0-10 [facility] Blood platelet mean volumeOr dered By: Shayna Malhotra on 04-13-2022 Platelet mean volume (Bld) [Entitic vol] 11.1 fL 6.2-12.0 [facility] Determination of erythrocyte mean corpuscular volume (MCV)Ordered By: Shayna Malhotra on 04-13-2022 MCV (RBC) [Entitic vol] 90.8 fL 81-99 [facility] Hematocrit Auto (Bld) [Volum e fraction]Ordered By: Shayna Malhotra on 04-13-2022 Hematocrit (Bld) [Volume fraction] 40.4 % 37-47 [facility] - Chemistry and C hemistry - challengeOrdered By: Shayna Malhotra on 04-13-2022 ALP [Catalytic activity/Vol] 144 U/L 45-117 [facility] ALT [Catalytic activity/Vol] 32 U/L 13-56 [facility] CO2 [Moles/Vol] 23.0 mmol/L 21.0-32.0 [facility] Globulin (S) [Mass/Vol] 4.8 g/dL 2.2-4.2 [facility] Urea nitrogen/Creatinine [Mass ratio] 15.3 mg/mg 10-20 [facility] - Hematology and Cell countsOrdered By: Shayna Malhotra on 04-13-2022 Erythrocyte distribution width (RBC) [Entitic vol] 47.8 fL 35.1-43.9 [facility] Erythrocyte distribution width (RBC) [Ratio] 14.3 % 11.6-14.6 [facility] Immature granulocytes/100 WBC (Bld) 0.400 % 0.0-0.9 [facility] Comment on above: IG% - Immature Granu locytes (promyelocytes, myelocytes and metamyelocytes) > 1% indicates that a LEFT SHIFT is Present. MCH (RBC) [Entitic mass] 29.0 pg 27.0-32.0 [facility] Nucleated RBC/100 WBC (Bld) [Ratio] 0 % 0-5 [facility] MCHC Auto (RBC) [Mass/Vol]Or dered By: Shayna Malhotra on 04-13-2022 MCHC (RBC) [Mass/Vol] 31.9 g/dL 32-36 [facility] No Panel InformationOrdered By: Shayna Malhotra on 04-13-2022 Estimated GFR (MDRD) Amer 78 mL/min >60 [facility] Comment on above: GFR Calc Estimated GFR (MDRD) Non-Af Amer 65 mL/min >60 [facility] Comment on above: Non- GFR Calc Vitamin D 25-Hydroxy 63.8 ng/mL [facility] Comment on above: Vitamin D 25(OH) Sta tus Range Deficiency <20 ng/mL (50nmol/L) Insufficiency 20 - 30 ng/mL (50 - 75 nmol/L) Sufficiency 30 - 100 ng/mL (75 - 250 nmol/L) Toxicity >100 ng/mL (>250 nmol/L) Platelets bldOrdered By: Evi Malhotra on 04-13-2022 Platelets (Bld) [#/Vol] 157 10*3/uL 150-450 [facility] Serum or plasma albumin kim urement (mass/volume)Ordered By: Shayna Malhotra on 04-13-2022 Albumin [Mass/Vol] 3.0 g/dL 3.2-5.0 [facility] Serum or plasma albumin/glob ulin mass ratioOrdered By: Shayna Malhotra on 04-13-2022 Albumin/Globulin [Mass ratio] 0.6 {ratio} 0.9-2.4 [facility] Serum or plasma calcium kim urement (mass/volume)Ordered By: Shayna Malhotra on 04-13-2022 Calcium [Mass/Vol] 9.0 mg/dL 8.5-10.1 [facility] Serum or plasma creatinine m easurement (mass/volume)Ordered By: Shayna Malhotra on 04-13-2022 Creatinine [Mass/Vol] 0.92 mg/dL 0.55-1.02 [facility] Comment on above: The validity of the calculated GFR & GFRAA in patients over 70 years has not been determined. Clinical correlation is essential. Serum or plasma urea nitroge n measurement (mass/volume)Ordered By: Shayna Malhotra on 04-13-2022 Urea nitrogen [Mass/Vol] 14 mg/dL 7-18 [facility] Thin prep Papanicolaou smear with manual screeningOrdered By: Shayna Malhotra on 04-13-2022 Thin prep Papanicolaou smear with manual screening 40 U/L 15-37 [facility] Thin prep Papanicolaou smear with manual screening 9 5-15 [facility] Basophil percentageon 2021 Bilirubin [Mass/Vol] 0.80 mg/dL 0.20-1.00 [facility] Work Phone: Comment on above: For patients on eltr ombopag therapy, use of Dimension Morton TBIL is not recommended. Chloride [Moles/Vol] 103 mmol/L 98-107 [facility]: Glucose [Mass/Vol] 218 mg/dL 74-106 [facility] Work Phone: Comment on above: Glucose result great er than or equal to 200 mg/dLsuggests DIABETES MELLITUS per A.D.A. criteria. Potassium [Moles/Vol] 4.2 mmol/L 3.5-5.1 [facility] Work Phone: Protein [Mass/Vol] 8.0 g/dL 6.4-8.2 [facility] Work Phone: Sodium [Moles/Vol] 135 mmol/L 136-145 [facility] Work Phone: WBC (Bld) [#/Vol] 8.6 10*3/uL 4.4-11.0 [facility] Work Phone: Blood erythrocytes count (nu mber/volume)on 01-01-2022 RBC (Bld) [#/Vol] 4.72 10*6/uL 4.2-5.[address] [facility] Work Phone: Blood hemoglobin measurement (mass/volume)on 01-01-2022 Hemoglobin (Bld) [Mass/Vol] 13.5 g/dL 12.0-15.0 [facility] Work Phone: Blood platelet mean volumeon 01-01-2022 Platelet mean volume (Bld) [Entitic vol] 11.0 fL 6.2-12.0 [facility] Work Phone: Determination of erythrocyte mean corpuscular volume (MCV)on 01-01-2022 MCV (RBC) [Entitic vol] 86.2 fL 81-99 [facility] Work Phone: Hematocrit Auto (Bld) [Volum e fraction]on 01-01-2022 Hematocrit (Bld) [Volume fraction] 40.7 % 37-47 [facility] Work Phone: Laboratory - Chemistry and C hemistry - challengeon 01-01-2022 ALP [Catalytic activity/Vol] 140 U/L 45-117 [facility] Work Phone: ALT [Catalytic activity/Vol] 35 U/L 13-56 [facility] Work Phone: CO2 [Moles/Vol] 23.0 mmol/L 21.0-32.0 [facility] Work Phone: Globulin (S) [Mass/Vol] 4.9 g/dL 2.2-4.2 [facility] Work Phone: Urea nitrogen/Creatinine [Mass ratio] 13.8 mg/mg 10-20 [facility] Work Phone: Laboratory - Hematology and Cell countson 01-01-2022 Erythrocyte distribution width (RBC) [Entitic vol] 55.6 fL 35.1-43.9 [facility] Work Phone: Erythrocyte distribution width (RBC) [Ratio] 17.5 % 11.6-14.6 [facility] Work Phone: MCH (RBC) [Entitic mass] 28.6 pg 27.0-32.0 [facility] Work Phone: MCHC Auto (RBC) [Mass/Vol]on 01-01-2022 MCHC (RBC) [Mass/Vol] 33.2 g/dL 32-36 [facility] Work Phone: No Panel Informationon 01-01 Estimated GFR (MDRD) Amer 64 mL/min >60 [facility] Work Phone: Comment on above: GFR Calc Estimated GFR (MDRD) Non-Af Amer 53 mL/min >60 [facility] Work Phone: Comment on above: Non- GFR Calc Platelets bldon 01-01-2022 Platelets (Bld) [#/Vol] 141 10*3/uL 150-450 [facility] Work Phone: Serum or plasma albumin kim urement (mass/volume)on 01-01-2022 Albumin [Mass/Vol] 3.1 g/dL 3.2-5.0 [facility] Work Phone: Serum or plasma albumin/glob ulin mass ratioon 01-01-2022 Albumin/Globulin [Mass ratio] 0.6 {ratio} 0.9-2.4 [facility] Work Phone: Serum or plasma calcium kim urement (mass/volume)on 01-01-2022 Calcium [Mass/Vol] 9.3 mg/dL 8.5-10.1 [facility] Work Phone: Serum or plasma creatinine m easurement (mass/volume)on 01-01-2022 Creatinine [Mass/Vol] 1.09 mg/dL 0.55-1.02 [facility] Work Phone: Comment on above: The validity of the calculated GFR & GFRAA in patients over 70 years has not been determined. Clinical correlation is essential. Serum or plasma urea nitroge n measurement (mass/volume)on 01-01-2022 Urea nitrogen [Mass/Vol] 15 mg/dL 7-18 [facility] Work Phone: Thin prep Papanicolaou smear with manual screeningon 01-01-2022 Thin prep Papanicolaou smear with manual screening 36 U/L 15-37 [facility] Work Phone: Thin prep Papanicolaou smear with manual screening 9 5-15 [facility] Work Phone: Whole blood hemoglobin A1c/t otal hemoglobin ratio (mass fraction)on 01-01-2022 HbA1c (Bld) [Mass fraction] 8.7 % 3.8-5.6 [facility] Work Phone: Comment on above: Normal < 5.7 % Predi abetic 5.7 - 6.4 % Diabetic >or= 6.5 % Please note range changes. Basophil percentageon 2021 Bilirubin [Mass/Vol] 0.40 mg/dL 0.20-1.00 [facility] Work Phone: Comment on above: For patients on eltr ombopag therapy, use of Dimension Morton TBIL is not recommended. Chloride [Moles/Vol] 103 mmol/L 98-107 [facility] Work Phone: Glucose [Mass/Vol] 216 mg/dL 74-106 [facility] Work Phone: Comment on above: Glucose result great er than or equal to 200 mg/dLsuggests DIABETES MELLITUS per A.D.A. criteria. Potassium [Moles/Vol] 4.4 mmol/L 3.5-5.1 [facility]: Protein [Mass/Vol] 6.5 g/dL 6.4-8.2 [facility] Work Phone: Sodium [Moles/Vol] 136 mmol/L 136-145 [facility] Work Phone: WBC (Bld) [#/Vol] 6.2 10*3/uL 4.4-11.0 [facility] Work Phone: Blood erythrocytes count (nu mber/volume)on 12-01-2021 RBC (Bld) [#/Vol] 4.09 10*6/uL 4.2-5.[address] [facility] Work Phone: Blood hemoglobin measurement (mass/volume)on 12-01-2021 Hemoglobin (Bld) [Mass/Vol] 11.3 g/dL 12.0-15.0 [facility] Work Phone: Blood platelet mean volumeon 12-01-2021 Platelet mean volume (Bld) [Entitic vol] 10.8 fL 6.2-12.0 [facility] Work Phone: Determination of erythrocyte mean corpuscular volume (MCV)on 12-01-2021 MCV (RBC) [Entitic vol] 85.8 fL 81-99 [facility] Work Phone: Comment on above: Delta: 79.2 on 11/27-0650 Hematocrit Auto (Bld) [Volum e fraction]on 12-01-2021 Hematocrit (Bld) [Volume fraction] 35.1 % 37-47 [facility] Work Phone: Laboratory - Chemistry and C hemistry - challengeon 12-01-2021 ALP [Catalytic activity/Vol] 130 U/L 45-117 [facility] Work Phone: ALT [Catalytic activity/Vol] 48 U/L 13-56 [facility] Work Phone: CK [Catalytic activity/Vol] 27 U/L 26-192 [facility] Work Phone: CO2 [Moles/Vol] 27.0 mmol/L 21.0-32.0 [facility] Work Phone: Globulin (S) [Mass/Vol] 4.2 g/dL 2.2-4.2 [facility] Work Phone: Urea nitrogen/Creatinine [Mass ratio] 31.2 mg/mg 10-20 [facility] Work Phone: Laboratory - Hematology and Cell countson 12-01-2021 Erythrocyte distribution width (RBC) [Entitic vol] 48.3 fL 35.1-43.9 [facility] Work Phone: Erythrocyte distribution width (RBC) [Ratio] 15.4 % 11.6-14.6 [facility] Work Phone: MCH (RBC) [Entitic mass] 27.6 pg 27.0-32.0 [facility] Work Phone: MCHC Auto (RBC) [Mass/Vol]on 12-01-2021 MCHC (RBC) [Mass/Vol] 32.2 g/dL 32-36 [facility] Work Phone: Comment on above: Delta: 34.7 on 11/27 No Panel Informationon 12-01 Estimated GFR (MDRD) Amer 91 mL/min >60 [facility] Work Phone: Comment on above: GFR Calc Estimated GFR (MDRD) Non-Af Amer 76 mL/min >60 [facility] Work Phone: Comment on above: Non- GFR Calc Platelets bldon 12-01-2021 Platelets (Bld) [#/Vol] 231 10*3/uL 150-450 [facility] Work Phone: Serum or plasma albumin kim urement (mass/volume)on 12-01-2021 Albumin [Mass/Vol] 2.3 g/dL 3.2-5.0 [facility] Work Phone: Serum or plasma albumin/glob ulin mass ratioon 12-01-2021 Albumin/Globulin [Mass ratio] 0.5 {ratio} 0.9-2.4 [facility] Work Phone: Serum or plasma calcium kim urement (mass/volume)on 12-01-2021 Calcium [Mass/Vol] 8.8 mg/dL 8.5-10.1 [facility] Work Phone: Serum or plasma creatinine m easurement (mass/volume)on 12-01-2021 Creatinine [Mass/Vol] 0.80 mg/dL 0.55-1.02 [facility] Work Phone: Comment on above: The validity of the calculated GFR & GFRAA in patients over 70 years has not been determined. Clinical correlation is essential. Serum or plasma urea nitroge n measurement (mass/volume)on 12-01-2021 Urea nitrogen [Mass/Vol] 25 mg/dL 7-18 [facility] Work Phone: Thin prep Papanicolaou smear with manual screeningon 12-01-2021 Thin prep Papanicolaou smear with manual screening 69 U/L 15-37 [facility] Work Phone: Thin prep Papanicolaou smear with manual screening 6 5-15 [facility] Work Phone: Whole blood hemoglobin A1c/t otal hemoglobin ratio (mass fraction)on 12-01-2021 HbA1c (Bld) [Mass fraction] 10.6 % 3.8-5.6 [facility] Work Phone: Comment on above: Normal < 5.7 % Predi abetic 5.7 - 6.4 % Diabetic >or= 6.5 % Please note range changes. Basophil percentageon 2021 Bilirubin [Mass/Vol] 0.40 mg/dL 0.20-1.00 [facility] Work Phone: Comment on above: For patients on eltr ombopag therapy, use of Dimension Morton TBIL is not recommended. Chloride [Moles/Vol] 102 mmol/L 98-107 [facility] Work Phone: Glucose [Mass/Vol] 256 mg/dL 74-106 [facility] Work Phone: Comment on above: Glucose result great er than or equal to 200 mg/dLsuggests DIABETES MELLITUS per A.D.A. criteria. Potassium [Moles/Vol] 4.4 mmol/L 3.5-5.1 [facility] Work Phone: Protein [Mass/Vol] 7.0 g/dL 6.4-8.2 [facility] Work Phone: Sodium [Moles/Vol] 133 mmol/L 136-145 [facility] Work Phone: WBC (Bld) [#/Vol] 5.6 10*3/uL 4.4-11.0 [facility] Work Phone: Blood erythrocytes count (nu mber/volume)on 11-27-2021 RBC (Bld) [#/Vol] 4.47 10*6/uL 4.2-5.4 [facility] Work Phone: Blood hemoglobin measurement (mass/volume)on 11-27-2021 Hemoglobin (Bld) [Mass/Vol] 12.3 g/dL 12.0-15.0 [facility] Work Phone: Blood platelet mean volumeon 11-27-2021 Platelet mean volume (Bld) [Entitic vol] 11.9 fL 6.2-12.0 [facility] Work Phone: Determination of erythrocyte mean corpuscular volume (MCV)on 11-27-2021 MCV (RBC) [Entitic vol] 79.2 fL 81-99 [facility] Work Phone: Comment on above: Delta: 83.4 on 11/24 Hematocrit Auto (Bld) [Volum e fraction]on 11-27-2021 Hematocrit (Bld) [Volume fraction] 35.4 % 37-47 [facility] Work Phone: Laboratory - Chemistry and C hemistry - challengeon 11-27-2021 ALP [Catalytic activity/Vol] 127 U/L 45-117 [facility] Work Phone: ALT [Catalytic activity/Vol] 28 U/L 13-56 [facility] Work Phone: CO2 [Moles/Vol] 25.0 mmol/L 21.0-32.0 [facility] Work Phone: Globulin (S) [Mass/Vol] 4.6 g/dL 2.2-4.2 [facility] Work Phone: Urea nitrogen/Creatinine [Mass ratio] 15.9 mg/mg 10-20 [facility] Work Phone: Laboratory - Hematology and Cell countson 11-27-2021 Erythrocyte distribution width (RBC) [Entitic vol] 41.4 fL 35.1-43.9 [facility] Work Phone: Erythrocyte distribution width (RBC) [Ratio] 14.5 % 11.6-14.6 [facility] Work Phone: MCH (RBC) [Entitic mass] 27.5 pg 27.0-32.0 [facility] Work Phone: MCHC Auto (RBC) [Mass/Vol]on 11-27-2021 MCHC (RBC) [Mass/Vol] 34.7 g/dL 32-36 [facility] Work Phone: No Panel Informationon 11-27 Estimated GFR (MDRD) Amer 108 mL/min >60 [facility] Work Phone: Comment on above: GFR Calc Estimated GFR (MDRD) Non-Af Amer 89 mL/min >60 [facility] Work Phone: Comment on above: Non- GFR Calc Platelets bldon 11-27-2021 Platelets (Bld) [#/Vol] 154 10*3/uL 150-450 [facility] Work Phone: Serum or plasma albumin kim urement (mass/volume)on 11-27-2021 Albumin [Mass/Vol] 2.4 g/dL 3.2-5.0 [facility] Work Phone: Serum or plasma albumin/glob ulin mass ratioon 11-27-2021 Albumin/Globulin [Mass ratio] 0.5 {ratio} 0.9-2.4 [facility] Work Phone: Serum or plasma calcium kim urement (mass/volume)on 11-27-2021 Calcium [Mass/Vol] 8.9 mg/dL 8.5-10.1 [facility] Work Phone: Serum or plasma creatinine m easurement (mass/volume)on 11-27-2021 Creatinine [Mass/Vol] 0.69 mg/dL 0.55-1.02 [facility] Work Phone: Comment on above: The validity of the calculated GFR & GFRAA in patients over 70 years has not been determined. Clinical correlation is essential. Serum or plasma urea nitroge n measurement (mass/volume)on 11-27-2021 Urea nitrogen [Mass/Vol] 11 mg/dL 7-18 [facility] Work Phone: Thin prep Papanicolaou smear with manual screeningon 11-27-2021 Thin prep Papanicolaou smear with manual screening 31 U/L 15-37 [facility] Work Phone: Thin prep Papanicolaou smear with manual screening 6 5-15 [facility] Work Phone: Absolute lymphocyte counton 11-24-2021 Lymphocytes Auto (Unsp spec) [#/Vol] 1.01 10*3/uL 0.83-4.51 [facility] Work Phone: Basophil percentageon 2021 Basophil percentage 3.5 mg/dL 2.5-4.[address] [facility] [facility] Work Phone: Basophils/100 WBC (Bld) 0.4 % 0-1 [facility] Work Phone: Bilirubin [Mass/Vol] 0.40 mg/dL 0.20-1.00 [facility] Work Phone: Comment on above: For patients on eltr ombopag therapy, use of Dimension Morton TBIL is not recommended. Chloride [Moles/Vol] 105 mmol/L 98-107 [facility] Work Phone: Eosinophils/100 WBC (Bld) 2.3 % 0-5 [facility] Work Phone: Glucose [Mass/Vol] 321 mg/dL 74-106 [facility] Work Phone: Comment on above: Glucose result great er than or equal to 200 mg/dLsuggests DIABETES MELLITUS per A.D.A. criteria. Neutrophils (Bld) [#/Vol] 3.8 10*3/uL 2.0-7.7 [facility] Work Phone: Neutrophils/100 WBC (Bld) 66.8 % 47-70 [facility] Work Phone: Potassium [Moles/Vol] 4.2 mmol/L 3.5-5.1 [facility] Work Phone: Protein [Mass/Vol] 6.6 g/dL 6.4-8.2 [facility] Work Phone: Sodium [Moles/Vol] 133 mmol/L 136-145 [facility] Work Phone: WBC (Bld) [#/Vol] 5.6 10*3/uL 4.4-11.0 [facility] Work Phone: Blood erythrocytes count (nu mber/volume)on 11-24-2021 RBC (Bld) [#/Vol] 3.91 10*6/uL 4.2-5.[address] [facility] [facility] Work Phone: Blood hemoglobin measurement (mass/volume)on 11-24-2021 Hemoglobin (Bld) [Mass/Vol] 11.0 g/dL 12.0-15.0 [facility] Work Phone: Blood lymphocytes/100 leukoc yteson 11-24-2021 Lymphocytes/100 WBC (Bld) 17.9 % 19-41 [facility] Work Phone: Blood monocytes/100 leukocyt eson 11-24-2021 Monocytes/100 WBC (Bld) 12.1 % 0-10 [facility] Work Phone: Blood platelet mean volumeon 11-24-2021 Platelet mean volume (Bld) [Entitic vol] 11.4 fL 6.2-12.0 [facility] Work Phone: Determination of erythrocyte mean corpuscular volume (MCV)on 11-24-2021 MCV (RBC) [Entitic vol] 83.4 fL 81-99 [facility] Work Phone: Glucose Glucometer (BldC) [M ass/Vol]on 11-24-2021 Glucose [Mass/Vol] 307 mg/dL 74-106 [facility] Work Phone: Comment on above: MANAGEMENT OF PATIEN T CARE PER NURSING PROTOCOL Glucose [Mass/Vol] 339 mg/dL 74-106 [facility] Work Phone: Comment on above: MANAGEMENT OF PATIEN T CARE PER NURSING PROTOCOL Hematocrit Auto (Bld) [Volum e fraction]on 11-24-2021 Hematocrit (Bld) [Volume fraction] 32.6 % 37-47 [facility] Work Phone: Laboratory - Chemistry and C hemistry - challengeon 11-24-2021 ALP [Catalytic activity/Vol] 116 U/L 45-117 [facility] Work Phone: ALT [Catalytic activity/Vol] 33 U/L 13-56 [facility] Work Phone: CK [Catalytic activity/Vol] 500 U/L 26-192 [facility] Work Phone: CO2 [Moles/Vol] 22.0 mmol/L 21.0-32.0 [facility] Work Phone: Globulin (S) [Mass/Vol] 4.4 g/dL 2.2-4.2 [facility] Work Phone: Magnesium [Mass/Vol] 2.3 mg/dL 1.6-2.6 [facility] Work Phone: Urea nitrogen/Creatinine [Mass ratio] 24.3 mg/mg 10-20 [facility] Work Phone: Laboratory - Hematology and Cell countson 11-24-2021 Erythrocyte distribution width (RBC) [Entitic vol] 45.1 fL 35.1-43.9 [facility] Work Phone: Erythrocyte distribution width (RBC) [Ratio] 14.9 % 11.6-14.6 [facility] Work Phone: Immature granulocytes/100 WBC (Bld) 0.500 % 0.0-0.9 [facility] Work Phone: Comment on above: IG% - Immature Granu locytes (promyelocytes, myelocytes and metamyelocytes) > 1% indicates that a LEFT SHIFT is Present. MCH (RBC) [Entitic mass] 28.1 pg 27.0-32.0 [facility] Work Phone: Nucleated RBC/100 WBC (Bld) [Ratio] 0 % 0-5 [facility] Work Phone: MCHC Auto (RBC) [Mass/Vol]on 11-24-2021 MCHC (RBC) [Mass/Vol] 33.7 g/dL 32-36 [facility] Work Phone: No Panel Informationon 11-24 Estimated Creatinine Clearance Calc 51.54 ml/min [facility] Work Phone: Estimated GFR (MDRD) Amer 76 mL/min >60 [facility] Work Phone: Comment on above: GFR Calc Estimated GFR (MDRD) Non-Af Amer 62 mL/min >60 [facility] Work Phone: Comment on above: Non- GFR Calc Platelets bldon 11-24-2021 Platelets (Bld) [#/Vol] 107 10*3/uL 150-450 [facility] Work Phone: Serum or plasma albumin kim urement (mass/volume)on 11-24-2021 Albumin [Mass/Vol] 2.2 g/dL 3.2-5.0 [facility] Work Phone: Serum or plasma albumin/glob ulin mass ratioon 11-24-2021 Albumin/Globulin [Mass ratio] 0.5 {ratio} 0.9-2.4 [facility] Work Phone: Serum or plasma calcium kim urement (mass/volume)on 11-24-2021 Calcium [Mass/Vol] 8.5 mg/dL 8.5-10.1 [facility] Work Phone: Serum or plasma creatinine m easurement (mass/volume)on 11-24-2021 Creatinine [Mass/Vol] 0.94 mg/dL 0.55-1.02 [facility] Work Phone: Comment on above: The validity of the calculated GFR & GFRAA in patients over 70 years has not been determined. Clinical correlation is essential. Serum or plasma urea nitroge n measurement (mass/volume)on 11-24-2021 Urea nitrogen [Mass/Vol] 23 mg/dL 7-18 [facility] Work Phone: Thin prep Papanicolaou smear with manual screeningon 11-24-2021 Thin prep Papanicolaou smear with manual screening 49 U/L 15-37 [facility] Work Phone: Thin prep Papanicolaou smear with manual screening 6 5-15 [facility] Work Phone: Absolute lymphocyte counton 11-22-2021 Lymphocytes Auto (Unsp spec) [#/Vol] 0.27 10*3/uL 0.83-4.51 [facility] Work Phone: Basophil percentageon 2021 Lactate [Moles/Vol] 2.7 mmol/L 0.4-2.[address] [facility] Work Phone: Comment on above: Critical Result(s) C alled at: 19:01:05 11/22/2021 by: Sintia Hernandez to Pamela Ely Results read back by same. Basophil percentage >100 SEEN /hpf 0-5 [facility] Work Phone: Lactate [Moles/Vol] 4.1 mmol/L 0.4-2.[address] [facility] Work Phone: Comment on above: Critical Result(s) C alled at: 14:35:39 11/22/2021 by: Derik Florez. To Julia Cordova RN (ER). Results read back by same. Basophils/100 WBC (Bld) 0.3 % 0-1 [facility] Work Phone: Bilirubin [Mass/Vol] 1.00 mg/dL 0.20-1.00 [facility] Work Phone: Comment on above: For patients on eltr ombopag therapy, use of Dimension Morton TBIL is not recommended. Chloride [Moles/Vol] 97 mmol/L 98-107 [facility] Work Phone: Eosinophils/100 WBC (Bld) 0.0 % 0-5 [facility] Work Phone: Glucose [Mass/Vol] 358 mg/dL 74-106 [facility] Work Phone: Comment on above: Glucose result great er than or equal to 200 mg/dLsuggests DIABETES MELLITUS per A.D.A. criteria. Neutrophils (Bld) [#/Vol] 2.6 10*3/uL 2.0-7.7 [facility] Work Phone: Neutrophils/100 WBC (Bld) 89.3 % 47-70 [facility] Work Phone: Potassium [Moles/Vol] 4.9 mmol/L 3.5-5.1 [facility] Work Phone: Comment on above: Moderate Hemolysis, Result may be falsely increased. Protein [Mass/Vol] 7.8 g/dL 6.4-8.2 [facility] Work Phone: Sodium [Moles/Vol] 130 mmol/L 136-145 [facility] Work Phone: WBC (Bld) [#/Vol] 2.9 10*3/uL 4.4-11.0 [facility] Work Phone: Bilirubin Test strip Ql (U)o n 11-22-2021 Bilirubin Ql (U) Negative Negative [facility] Work Phone: Blood erythrocytes count (nu mber/volume)on 11-22-2021 RBC (Bld) [#/Vol] 4.66 10*6/uL 4.2-5.4 [facility] Work Phone: Blood hemoglobin measurement (mass/volume)on 11-22-2021 Hemoglobin (Bld) [Mass/Vol] 12.9 g/dL 12.0-15.0 [facility] Work Phone: Blood lymphocytes/100 leukoc yteson 11-22-2021 Lymphocytes/100 WBC (Bld) 9.4 % 19-41 [facility] Work Phone: Blood manual differential co mment interpretation (narrative result)on 11-22-2021 Manual differential comment Neftali (Bld) [Interp] SCANNED [facility] Work Phone: Comment on above: FEW BANDS NOTED Blood monocytes/100 leukocyt eson 11-22-2021 Monocytes/100 WBC (Bld) 0.7 % 0-10 [facility] Work Phone: Blood platelet mean volumeon 11-22-2021 Platelet mean volume (Bld) [Entitic vol] 11.0 fL 6.2-12.0 [facility] Work Phone: Determination of erythrocyte mean corpuscular volume (MCV)on 11-22-2021 MCV (RBC) [Entitic vol] 83.7 fL 81-99 [facility] Work Phone: Hematocrit Auto (Bld) [Volum e fraction]on 11-22-2021 Hematocrit (Bld) [Volume fraction] 39.0 % 37-47 [facility] Work Phone: INR in Blood by Coagulation assayon 11-22-2021 INR Coag (Bld) [Relative time] 1.6 {INR} [facility] Work Phone: Ketones Test strip Ql (U)on 11-22-2021 Ketones Ql (U) 15 mg/dl Negative [facility] Work Phone: Laboratory - Chemistry and C hemistry - challengeon 11-22-2021 ALP [Catalytic activity/Vol] 170 U/L 45-117 [facility] Work Phone: ALT [Catalytic activity/Vol] 33 U/L 13-56 [facility] Work Phone: CO2 [Moles/Vol] 22.0 mmol/L 21.0-32.0 [facility] Work Phone: Globulin (S) [Mass/Vol] 5.0 g/dL 2.2-4.2 [facility] Work Phone: Urea nitrogen/Creatinine [Mass ratio] 19.1 mg/mg 10-20 [facility] Work Phone: Laboratory - Coagulationon 0 11-22-2021 aPTT Coag (Bld) [Time] 33.5 s 24.1-36.2 [facility] Work Phone: PT Coag (PPP) [Time] 18.6 s 11.7-14.9 [facility] Work Phone: Laboratory - Hematology and Cell countson 11-22-2021 Erythrocyte distribution width (RBC) [Entitic vol] 44.4 fL 35.1-43.9 [facility] Work Phone: Erythrocyte distribution width (RBC) [Ratio] 14.6 % 11.6-14.6 [facility] Work Phone: Immature granulocytes/100 WBC (Bld) 0.300 % 0.0-0.9 [facility] Work Phone: Comment on above: IG% - Immature Granu locytes (promyelocytes, myelocytes and metamyelocytes) > 1% indicates that a LEFT SHIFT is Present. MCH (RBC) [Entitic mass] 27.7 pg 27.0-32.0 [facility] Work Phone: Nucleated RBC/100 WBC (Bld) [Ratio] 0 % 0-5 [facility] Work Phone: Laboratory - Microbiology an d Antimicrobial susceptibilityon 11-22-2021 SARS-CoV-2 (COVID-19) RNA SALLY+probe Ql (Unsp spec) Not detected Not Detect [facility] Work Phone: Comment on above: Normal Reference Ran ge: Not DetectedMethod:(RT-PCR) real-time reverse transcriptase PCRLuminex Dacos Software Instrument*The Food and Drug Administration (FDA) has issued an Emergency Use Authorization (EAU) for the [employer] SARS-CoV-2 Assay for the rapid detection of [...] 11-22-2021 MCHC (RBC) [Mass/Vol] 33.1 g/dL 32-36 [facility] Work Phone: Mucus LM Ql (Urine sed)on Mucus Ql (Urine sed) 0 SEEN /hpf [facility] Work Phone: Nitrite Test strip Ql (U)on 11-22-2021 Nitrite Ql (U) Negative Negative [facility] Work Phone: No Panel Informationon 11-22 Troponin I High Sensitivity 217 pg/mL 3.0-54.0 [facility] Work Phone: Comment on above: Critical Result(s) C alled at: 20:27:57 11/22/2021 by: Sintia Hernandez to Anthony Butcher. Results read back by same. Please Note: New Test Units and Gender Specific Reference Ranges. For more information see Policy Stat Procedure Morton High Sensitivity Troponin (TNIH) and attachments. Troponin I High Sensitivity 274 pg/mL 3.0-54.0 [facility] Work Phone: Comment on above: Critical Result(s) C alled at: 17:12:08 11/22/2021 by: Sintia Hernandez by Lila Cordova. Results read back by same. Please Note: New Test Units and Gender Specific Reference Ranges. For more information see Policy Stat Procedure Morton High Sensitivity Troponin (TNIH) and attachments. Estimated Creatinine Clearance Calc 34.36 ml/min [facility] Work Phone: Estimated GFR (MDRD) Amer 48 mL/min >60 [facility] Work Phone: Comment on above: GFR Calc Estimated GFR (MDRD) Non-Af Amer 39 mL/min >60 [facility] Work Phone: Comment on above: Non- GFR Calc Platelets bldon 11-22-2021 Platelets (Bld) [#/Vol] 121 10*3/uL 150-450 [facility] Work Phone: Protein Test strip Ql (U)on 11-22-2021 Protein Ql (U) 100 mg/dl Negative [facility] Work Phone: Review by pathologiston 11-04 Pathologist review Neftali (Unsp spec) [Interp] Analisa jacobson [facility] Work Phone: Pathologist review Neftali (Unsp spec) [Interp] Reviewed [facility] Work Phone: Comment on above: Previous reported re sult: Analisa jacobson Edited by: RGOOD on 11/23/21:1334LeukopeniaMild Thrombocytopenia.Clinical correlation necessary.Cedric Cardoza M.D. 11/23/21 AMENDED REPORT 11/23/21 1334 PATH REV previously reported as: May foll Serum or plasma albumin kim urement (mass/volume)on 11-22-2021 Albumin [Mass/Vol] 2.8 g/dL 3.2-5.0 [facility] Work Phone: Serum or plasma albumin/glob ulin mass ratioon 11-22-2021 Albumin/Globulin [Mass ratio] 0.6 {ratio} 0.9-2.4 [facility] Work Phone: Serum or plasma calcium kim urement (mass/volume)on 11-22-2021 Calcium [Mass/Vol] 8.9 mg/dL 8.5-10.1 [facility] Work Phone: Serum or plasma creatinine m easurement (mass/volume)on 11-22-2021 Creatinine [Mass/Vol] 1.41 mg/dL 0.55-1.02 [facility] Work Phone: Comment on above: The validity of the calculated GFR & GFRAA in patients over 70 years has not been determined. Clinical correlation is essential. Serum or plasma urea nitroge n measurement (mass/volume)on 11-22-2021 Urea nitrogen [Mass/Vol] 27 mg/dL 7-18 [facility] Work Phone: Squamous epithelial cells de tection in urine sediment by light microscopyon 11-22-2021 Epithelial cells.squamous LM Ql (Urine sed) 0 SEEN /hpf 5-10 [facility] Work Phone: Thin prep Papanicolaou smear with manual screeningon 11-22-2021 Thin prep Papanicolaou smear with manual screening 65 U/L 15-37 [facility] Work Phone: Comment on above: Moderate Hemolysis, Result may be falsely increased. Thin prep Papanicolaou smear with manual screening 11 5-15 [facility] Work Phone: Urine blood detectionon 11-04 RBC Ql (U) 250 /ul Negative [facility] Work Phone: RBC Ql (U) 0 SEEN /hpf 0-5 [facility] Work Phone: Urine clarityon 11-22-2021 Clarity (U) Cloudy Clear [facility] Work Phone: Urine color determinationon 11-22-2021 Color (U) Yellow Yellow [facility] Work Phone: Urine glucose detectionon Glucose Ql (U) 250 mg/dl Normal [facility] Work Phone: Urine leukocyte esterase det ection by dipstickon 11-22-2021 Leukocyte esterase Test strip Ql (U) 500 /ul Negative [facility] Work Phone: Urine pHon 11-22-2021 pH (U) 6.0 [pH] 5.0 - 8.0 [facility] Work Phone: Urine sediment bacteria coun t by microscopy (number/high power field)on 11-22-2021 Bacteria LM.HPF (Urine sed) [#/Area] 3 /[HPF] None Seen [facility] Work Phone: Urine specific gravity measu rementon 11-22-2021 Specific gravity (U) [Rel density] 1.020 1.002-1.03 0 [facility] Work Phone: Urobilinogen Auto test strip Ql (U)on 11-22-2021 Urobilinogen Ql (U) Normal mg/dl Normal [facility] Work Phone: Whole blood hemoglobin A1c/t otal hemoglobin ratio (mass fraction)on 11-22-2021 HbA1c (Bld) [Mass fraction] 10.2 % 3.8-5.6 [facility] Work Phone: Comment on above: Normal < 5.7 % Predi abetic 5.7 - 6.4 % Diabetic >or= 6.5 % Please note range changes. Whole blood hemoglobin A1c/t otal hemoglobin ratio (mass fraction)on 10-27-2021 HbA1c (Bld) [Mass fraction] 8.3 % 3.8-5.6 [facility] Work Phone: Comment on above: Normal < 5.7 % Predi abetic 5.7 - 6.4 % Diabetic >or= 6.5 % Please note range changes. Absolute lymphocyte counton 10-13-2021 Lymphocytes Auto (Unsp spec) [#/Vol] 1.22 10*3/uL 0.83-4.51 [facility] Work Phone: Basophil percentageon 2021 Basophils/100 WBC (Bld) 0.3 % 0-1 [facility] Work Phone: Bilirubin [Mass/Vol] 0.50 mg/dL 0.20-1.00 [facility] Work Phone: Comment on above: For patients on eltr ombopag therapy, use of Dimension Morton TBIL is not recommended. Chloride [Moles/Vol] 102 mmol/L 98-107 [facility] Work Phone: Eosinophils/100 WBC (Bld) 1.7 % 0-5 [facility] Work Phone: Glucose [Mass/Vol] 259 mg/dL 74-106 [facility] Work Phone: Comment on above: Glucose result great er than or equal to 200 mg/dLsuggests DIABETES MELLITUS per A.D.A. criteria. Neutrophils (Bld) [#/Vol] 5.1 10*3/uL 2.0-7.7 [facility] Work Phone: Neutrophils/100 WBC (Bld) 70.8 % 47-70 [facility] Work Phone: Potassium [Moles/Vol] 4.4 mmol/L 3.5-5.1 [facility] Work Phone: Protein [Mass/Vol] 7.4 g/dL 6.4-8.2 [facility] Work Phone: Sodium [Moles/Vol] 134 mmol/L 136-145 [facility] Work Phone: WBC (Bld) [#/Vol] 7.1 10*3/uL 4.4-11.0 [facility] Work Phone: Blood erythrocytes count (nu mber/volume)on 10-13-2021 RBC (Bld) [#/Vol] 4.21 10*6/uL 4.2-5.4 [facility] Work Phone: Blood hemoglobin measurement (mass/volume)on 10-13-2021 Hemoglobin (Bld) [Mass/Vol] 12.1 g/dL 12.0-15.0 [facility] Work Phone: Blood lymphocytes/100 leukoc yteson 10-13-2021 Lymphocytes/100 WBC (Bld) 17.1 % 19-41 [facility] Work Phone: Blood monocytes/100 leukocyt eson 10-13-2021 Monocytes/100 WBC (Bld) 9.8 % 0-10 [facility] Work Phone: Blood platelet mean volumeon 10-13-2021 Platelet mean volume (Bld) [Entitic vol] 10.7 fL 6.2-12.0 [facility] Work Phone: Determination of erythrocyte mean corpuscular volume (MCV)on 10-13-2021 MCV (RBC) [Entitic vol] 86.2 fL 81-99 [facility] Work Phone: Hematocrit Auto (Bld) [Volum e fraction]on 10-13-2021 Hematocrit (Bld) [Volume fraction] 36.3 % 37-47 [facility] Work Phone: Laboratory - Chemistry and C hemistry - challengeon 10-13-2021 ALP [Catalytic activity/Vol] 169 U/L 45-117 [facility] Work Phone: ALT [Catalytic activity/Vol] 31 U/L 13-56 [facility] Work Phone: CO2 [Moles/Vol] 25.0 mmol/L 21.0-32.0 [facility] Work Phone: Globulin (S) [Mass/Vol] 4.5 g/dL 2.2-4.2 [facility] Work Phone: Urea nitrogen/Creatinine [Mass ratio] 14.3 mg/mg 10-20 [facility] Work Phone: Laboratory - Hematology and Cell countson 10-13-2021 Erythrocyte distribution width (RBC) [Entitic vol] 45.6 fL 35.1-43.9 [facility] Work Phone: Erythrocyte distribution width (RBC) [Ratio] 14.4 % 11.6-14.6 [facility] Work Phone: Immature granulocytes/100 WBC (Bld) 0.300 % 0.0-0.9 [facility] Work Phone: Comment on above: IG% - Immature Granu locytes (promyelocytes, myelocytes and metamyelocytes) > 1% indicates that a LEFT SHIFT is Present. MCH (RBC) [Entitic mass] 28.7 pg 27.0-32.0 [facility] Work Phone: Nucleated RBC/100 WBC (Bld) [Ratio] 0 % 0-5 [facility] Work Phone: MCHC Auto (RBC) [Mass/Vol]on 10-13-2021 MCHC (RBC) [Mass/Vol] 33.3 g/dL 32-36 [facility] Work Phone: No Panel Informationon 10-13 Estimated GFR (MDRD) Amer 79 mL/min >60 [facility] Work Phone: Comment on above: GFR Calc Estimated GFR (MDRD) Non-Af Amer 66 mL/min >60 [facility] Work Phone: Comment on above: Non- GFR Calc Vitamin D 25-Hydroxy 67.4 ng/mL [facility] Work Phone: Comment on above: Vitamin D 25(OH) Sta tus Range Deficiency <20 ng/mL (50nmol/L) Insufficiency 20 - 30 ng/mL (50 - 75 nmol/L) Sufficiency 30 - 100 ng/mL (75 - 250 nmol/L) Toxicity >100 ng/mL (>250 nmol/L) Platelets bldon 10-13-2021 Platelets (Bld) [#/Vol] 158 10*3/uL 150-450 [facility] Work Phone: Serum or plasma albumin kim urement (mass/volume)on 10-13-2021 Albumin [Mass/Vol] 2.9 g/dL 3.2-5.0 [facility] Work Phone: Serum or plasma albumin/glob ulin mass ratioon 10-13-2021 Albumin/Globulin [Mass ratio] 0.6 {ratio} 0.9-2.4 [facility] Work Phone: Serum or plasma calcium kim urement (mass/volume)on 10-13-2021 Calcium [Mass/Vol] 8.8 mg/dL 8.5-10.1 [facility] Work Phone: Serum or plasma creatinine m easurement (mass/volume)on 10-13-2021 Creatinine [Mass/Vol] 0.91 mg/dL 0.55-1.02 [facility] Work Phone: Comment on above: The validity of the calculated GFR & GFRAA in patients over 70 years has not been determined. Clinical correlation is essential. Serum or plasma urea nitroge n measurement (mass/volume)on 10-13-2021 Urea nitrogen [Mass/Vol] 13 mg/dL 7-18 [facility] Work Phone: Thin prep Papanicolaou smear with manual screeningon 10-13-2021 Thin prep Papanicolaou smear with manual screening 28 U/L 15-37 [facility] Work Phone: Thin prep Papanicolaou smear with manual screening 7 5-15 [facility] Work Phone: CNOVSPon 10-02-2021 CNOVSP Visit (SP) Office (AGGYNONPOB) ----- VIDA NINA ([id number]) 1950 F Date Time Provider Department 10/02/21 1:00 PM JENNIFER CUEVAS During your visit today, we recorded the following information about you: Temperature Pulse Respiration Blood pressure 97.4 degrees 103/minute 20/minute 152/85 Weight Height 136.5 kg 1.651 m Moriah Aldridge RN 10/02/2021 12:52 PM Signed Patient arrived amb AANDOx[facility] in [facility] for post op visit. Patient admits to pain in abd and lower back resolved since surgery. Pt denies any new concerns, today. Pt here with sepideh [place]. Enc and support provided. JESUS Lynch MD 12/01/2021 8:04 AM Signed Gynecologic Oncology [facility] Follow up visit Date of service: 10/02/2021 PROBLEM/CC: Vida Nina presents for a post-op visit. SURGICAL PATHOLOGY [[id number]] Collected: 09/07/21 1104 Order Status: Completed Specimen: Tissue from UTERUS, CERVIX, BILATERAL FALLOPIAN TUBES AND BILATERAL OVARIES Updated: 09/11/21 1319 Case Report -- Surgical Pathology Report ? Case: [id number] ? Authorizing Provider: ?Jennifer Cuevas MD ? [...] A11 and A16 were reviewed at the [facility] gynecologic pathology consensus conference via telepathology on 09/09/[address] Lupe Younger and Andra Franco agree with the diagnosis of acute salpingitis. ? Laboratory Developed Test (LDT) Disclaimer: Performance characteristics of immunohistochemical, immunofluorescent and chromogenic in-situ hybridization tests have been determined by the performing laboratory within [facility]?reji Mercedes Pathology and Laboratory Medicine [place] [facility], [facility], [facility] or [facility]) in a manner consistent with CLIA requirements. [...] ?Not iden (more content not included)... [facility] Glucose Glucometer (BldC) [M ass/Vol]on 09-22-2021 Glucose [Mass/Vol] 145 mg/dL 74-106 [facility] Work Phone: Comment on above: MANAGEMENT OF PATIEN T CARE PER NURSING PROTOCOL Darren 09-21-2021 CNPN Telephone (ÁNGEL Sprague) ----- VIDA NINA ([id number]) 1950 F Date Time Provider Department 09/21/21 JENNIFER CUEVAS During your visit today, we recorded the following information about you: Jeffrey Ferris 09/21/2021 12:15 PM Signed Spoke to Nurse Bernadine from [facility] stated that the patient is in [...] ERYTHEMATOSUS [M32.9] 07/15/2005 MYALGIA AND MYOSITIS NOS [[id number]] 07/15/2005 Elevated transaminase level [R74.01] 09/04/2014 Elevated blood sugar [R73.9] 09/04/2014 Mood disorder (HCC) [F39] 09/04/2014 Hard to intubate [T88.4XXA] 09/07/2021 Encounter for postoperative care [Z48.89] 09/07/2021 Endometrial cancer (HCC) [C54.1] 09/08/2021 Encounter Status:Closed by JEFFREY FERRIS on 09/21/21 [facility] Absolute lymphocyte counton 09-20-2021 Lymphocytes Auto (Unsp spec) [#/Vol] 0.99 10*3/uL 0.83-4.51 [facility] Work Phone: Basophil percentageon 2021 Basophils/100 WBC (Bld) 0.6 % 0-1 [facility] Work Phone: Chloride [Moles/Vol] 109 mmol/L 98-107 [facility] Work Phone: Eosinophils/100 WBC (Bld) 2.6 % 0-5 [facility] Work Phone: Glucose [Mass/Vol] 211 mg/dL 74-106 [facility] Work Phone: Comment on above: Glucose result great er than or equal to 200 mg/dLsuggests DIABETES MELLITUS per A.D.A. criteria. Neutrophils (Bld) [#/Vol] 3.4 10*3/uL 2.0-7.7 [facility] Work Phone: Neutrophils/100 WBC (Bld) 67.6 % 47-70 [facility] Work Phone: Potassium [Moles/Vol] 4.4 mmol/L 3.5-5.1 [facility] Work Phone: Sodium [Moles/Vol] 138 mmol/L 136-145 [facility] Work Phone: WBC (Bld) [#/Vol] 5.0 10*3/uL 4.4-11.0 [facility] Work Phone: Blood erythrocytes count (nu mber/volume)on 09-20-2021 RBC (Bld) [#/Vol] 4.50 10*6/uL 4.2-5.[address] [facility] Work [facility]: Blood hemoglobin measurement (mass/volume)on 09-20-2021 Hemoglobin (Bld) [Mass/Vol] 12.8 g/dL 12.0-15.0 [facility] Work Phone: Blood lymphocytes/100 leukoc yteson 09-20-2021 Lymphocytes/100 WBC (Bld) 19.7 % 19-41 [facility] Work Phone: Blood monocytes/100 leukocyt eson 09-20-2021 Monocytes/100 WBC (Bld) 9.1 % 0-10 [facility] Work Phone: Blood platelet mean volumeon 09-20-2021 Platelet mean volume (Bld) [Entitic vol] 9.8 fL 6.2-12.0 [facility] Work Phone: Determination of erythrocyte mean corpuscular volume (MCV)on 09-20-2021 MCV (RBC) [Entitic vol] 87.6 fL 81-99 [facility] Work Phone: Hematocrit Auto (Bld) [Volum e fraction]on 09-20-2021 Hematocrit (Bld) [Volume fraction] 39.4 % 37-47 [facility] Work Phone: Laboratory - Chemistry and C hemistry - challengeon 09-20-2021 CO2 [Moles/Vol] 24.0 mmol/L 21.0-32.0 [facility] Work Phone: Natriuretic peptide B (Bld) [Mass/Vol] 43.0 pg/mL 0-100 [facility] Work Phone: Urea nitrogen/Creatinine [Mass ratio] 14.0 mg/mg 10-20 [facility] Work Phone: Laboratory - Hematology and Cell countson 09-20-2021 Erythrocyte distribution width (RBC) [Entitic vol] 47.4 fL 35.1-43.9 [facility] Work Phone: Erythrocyte distribution width (RBC) [Ratio] 14.7 % 11.6-14.6 [facility] Work Phone: Immature granulocytes/100 WBC (Bld) 0.400 % 0.0-0.9 [facility] Work Phone: Comment on above: IG% - Immature Granu locytes (promyelocytes, myelocytes and metamyelocytes) > 1% indicates that a LEFT SHIFT is Present. MCH (RBC) [Entitic mass] 28.4 pg 27.0-32.0 [facility] Work Phone: Nucleated RBC/100 WBC (Bld) [Ratio] 0 % 0-5 [facility] Work Phone: MCHC Auto (RBC) [Mass/Vol]on 09-20-2021 MCHC (RBC) [Mass/Vol] 32.5 g/dL 32-36 [facility] Work [facility]: No Panel Informationon 09-20 Troponin I High Sensitivity < 3 pg/mL 3.0-54.0 [facility] Work Phone: Comment on above: Please Note: New Emma t Units and Gender Specific Reference Ranges. For more information see Policy Stat Procedure Morton High Sensitivity Troponin (TNIH) and attachments. D-Dimer Quantitative (PE/DVT) 2.47 FEU/ug/m 0.27-0.49 [facility] Work Phone: Comment on above: D-Dimer ELEVATED (>0 .49): Additional studies and clinicalassessments are indicated to conclude diagnosis of:Deep Vein Thrombosis (DVT) or Pulmonary Embolism (PE)CRITICAL VALUE VERIFIED. CALLED TO [id number] Taniya Burden.RESULTS READ BACK BY SAME . Estimated Creatinine Clearance Calc 56.34 ml/min [facility] Work Phone: Estimated GFR (MDRD) Amer 85 mL/min >60 [facility] Work Phone: Comment on above: GFR Calc Estimated GFR (MDRD) Non-Af Amer 70 mL/min >60 [facility] Work Phone: Comment on above: Non- GFR Calc Platelets bldon 09-20-2021 Platelets (Bld) [#/Vol] 161 10*3/uL 150-450 [facility] Work Phone: Serum or plasma calcium kim urement (mass/volume)on 09-20-2021 Calcium [Mass/Vol] 9.4 mg/dL 8.5-10.1 [facility] Work Phone: Serum or plasma creatinine m easurement (mass/volume)on 09-20-2021 Creatinine [Mass/Vol] 0.86 mg/dL 0.55-1.02 [facility] Work Phone: Comment on above: The validity of the calculated GFR & GFRAA in patients over 70 years has not been determined. Clinical correlation is essential. Serum or plasma urea nitroge n measurement (mass/volume)on 09-20-2021 Urea nitrogen [Mass/Vol] 12 mg/dL 7-18 [facility] Work Phone: Thin prep Papanicolaou smear with manual screeningon 09-20-2021 Thin prep Papanicolaou smear with manual screening 5 5-15 [facility] Work Phone: OPERATIVE NOon 09-17-2021 OPERATIVE NO HNO ID: [id number] Author: Jennifer Cuevas MD Service: Gynecology Oncology Author Type: Physician Type: Operative Report Filed: 09/23/2021 10:50 AM Note Text: [facility] - Operative Report VIDA NINA : 1950 AGE: 70. SEX: F PATIENT TYPE: [place] [facility] [place] [facility] LOCATION: [facility] ATTENDING PHYSICIAN: Jennifer Cuevas M.D. CSN NUMBER: [id number] DATE OF SURGERY/PROCEDURE: 09/07/2021 INCISION/PROCEDURE START TIME: 09:14 a.m. INCISION CLOSE/PROCEDURE END TIME: 12:36 p.m. 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 SURGEON: Jennifer Cuevas M.D. STORE PROMOTER: resident assistant cna, Dr. Donal Naidu and Dr. Shanon Seymour. [...] ligaments, which (more content not included)... [facility] Bilirubin Test strip Ql (U)o n 09-10-2021 Bilirubin Ql (U) Negative Negative [facility] Work Phone: Darren 09-10-2021 SHORTY Telephone (ÁNGEL Sprague) ----- VIDA NINA ([id number]) 1950 F Date Time Provider Department 09/10/21 TANIYA BALDERAS During your visit today, we recorded the following information about you: Taniya Balderas APRN.MICHELLE 09/10/2021 8:32 AM Signed Called [facility] left message on nurse line to call [...] to. meds that are susceptible are iv. snf can recheck urine if still + then would need to get ID involved verbal instructions per Dr julieth Balderas APRN.CLINICAL PROFESSOR Allergies As of Date: 09/10/2021 Noted Allergy [...] ERYTHEMATOSUS [M32.9] 07/15/2005 MYALGIA AND MYOSITIS NOS [[id number]] 07/15/2005 Elevated transaminase level [R74.01] 09/04/2014 Elevated blood sugar [R73.9] 09/04/2014 Mood disorder (HCC) [F39] 09/04/2014 Hard to intubate [T88.4XXA] 09/07/2021 Encounter for postoperative care [Z48.89] 09/07/2021 Endometrial cancer (HCC) [C54.1] 09/08/2021 Encounter Status:Closed by TANIYA BALDERAS on 09/10/21 [facility] Culture, urineon 09-10-2021 Bacteria identified Cx Nom (U) Negative [facility] Work Phone: Ketones Test strip Ql (U)on 09-10-2021 Ketones Ql (U) Negative Negative [facility] Work Phone: Nitrite Test strip Ql (U)on 09-10-2021 Nitrite Ql (U) Negative Negative [facility] Work Phone: Protein Test strip Ql (U)on 09-10-2021 Protein Ql (U) Negative Negative [facility] Work Phone: Urine blood detectionon RBC Ql (U) 25 /ul Negative [facility] Work Phone: Urine clarityon 09-10-2021 Clarity (U) Clear Clear [facility] Work Phone: Urine color determinationon 09-10-2021 Color (U) Yellow Yellow [facility] Work Phone: Urine glucose detectionon Glucose Ql (U) Normal mg/dl Normal [facility] Work Phone: Urine leukocyte esterase det ection by dipstickon 09-10-2021 Leukocyte esterase Test strip Ql (U) 25 /ul Negative [facility] Work Phone: Urine pHon 09-10-2021 pH (U) 7.0 [pH] 5.0 - 8.0 [facility] Work Phone: Urine specific gravity measu rementon 09-10-2021 Specific gravity (U) [Rel density] 1.005 1.002-1.03 0 [facility] Work Phone: Urobilinogen Auto test strip Ql (U)on 09-10-2021 Urobilinogen Ql (U) Normal mg/dl Normal [facility] Work Phone: ANES POSTPROC EVALon 022 ANES POSTPROC EVAL HNO ID: [id number] Author: Darrion Payne MD Service: Anesthesiology Author Type: Physician Type: Anesthesia Postprocedure Evaluation Filed: 09/09/2021 12:30 PM Note Text: POST ANESTHESIA EVALUATION NOTE : 1950 Procedure Summary Date: 09/07/21 Room / Location: [place] OR [address] [place] [address] OR Anesthesia Start: 812 Anesthesia Stop: 1242 [...] September 09, 2021 TIME: 12:30 PM CSN: [id number] [facility] CNPNon 09-09-2021 CNPN Telephone (AGGYNONPO B) ----- PAULVIDA ([id number]) 1950 F Date Time Provider Department 09/09/21 JENNIFER CUEVAS During your visit today, we recorded the following information about you: Summer Turcios RN 09/09/2021 2:15 PM Signed Franklin, nursing support worker at [facility] called stated, one of patient's lap [...] Sebas Cuevas MD via confidential e-mail). JESUS Shah RN 09/09/2021 2:53 PM Addendum Per Sebas Cuevas MD: Nothing else to do. ( message sent to this RN via confidential e-mail) Attempted to call Franklin at [facility] to review above message, no answer. Left message on voicemail to return call. JESUS Shah RN 09/09/2021 2:53 PM Signed Franklin from [facility] returned call to this RN. Reviewed [...] ERYTHEMATOSUS [M32.9] 07/15/2005 MYALGIA AND MYOSITIS NOS [[id number]] 07/15/2005 Elevated transaminase level [R74.01] 09/04/2014 Elevated blood sugar [R73.9] 09/04/2014 Mood disorder (HCC) [F39] 09/04/2014 Hard to intubate [T88.4XXA] 09/07/2021 Encounter for postoperative care [Z48.89] 09/07/2021 Endometrial cancer (HCC) [C54.1] 09/08/2021 Encounter Status:Closed by SUMMER TURCIOS on 09/09/21 [facility] CASE MANAGEMon 09-08-2021 CASE MANAGEM HNO ID: [id number] Author: Rosmery Mclaughlin RN Service: ? Author [...] Rafael Resendiz is aware of DC and chicken picker time. RN to call report. TRANSPORTATION ARRANGEMENTS: Transportation Arrangements: ([facility]) ADDITIONAL CONTACT RESOURCES: n/a DC orders completed. Patient is discharging back to [facility]. The facility has arranged for [facility] transport to pick her up at 1pm. RN is aware. Met with patient at bedside to notify of DC and transport time. SIGNATURE: Rosmery Mclaughlin RN PATIENT NAME: Vida Nina DATE: September 08, 2021 TIME: 12:28 PM PAGER/CONTACT #: [phone] [facility] CASE MGT INIT Bette 2021 CASE MGT INIT NICOLE HNO ID: [id number] Author: Rosmery Mclaughlin RN Service: ? Author Type: Registered Nurse Type: Care Mgt Initial Assessment Filed: 09/08/2021 10:24 AM Note Text: CARE MANAGEMENT: ASSESSMENT AND DISCHARGE PLAN SERVICE DATE: September 08, 2021 SERVICE TIME: 10:22 AM PRIMARY CARE PHYSICIAN: No primary care provider on file. 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;Medicare;Medicaid Health Issues Impacting Discharge Plan: Newly diagnosed [...] None Has the Patient Been in a Nursing Home Facility in the Past 30 days?: No [...] plan for meeting these needs: return to [place] Patient's perception of need for this admission: surgery Are you interested in bedside delivery of your medications? No Is Patient Psychosocially Complex?: No ASSESSMENT AND PLAN: Medical Needs: Medical Needs: Two or more chronic diseases Psychosocial Needs: Psychosocial Needs: None FREEDOM OF CHOICE EXPLAINED: [place] of Choice Given: No Reason Not Given: Patient refused (patient prefers to return to [facility]) POTENTIAL TRANSITION PLANS Home Chart reviewed and met with patient. She is from [facility]. 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 Plan is to return to [place]. Spoke with Zari at [facility]. They will send [facility] transport to chicken picker patient at 1pm. Will updated patient and RN. SIGNATURE: Rosmery Mclaughlin RN PATIENT NAME: Vida Nina DATE: September 08, 2021 TIME: 10:22 AM PAGER/CONTACT #: [phone] [facility] 09-08-2021 [facility] HNO ID: [id number] Author: Sam Naidu DO Service: Gynecology Oncology [...] Time Provider Department Center 09/22/2021 2:30 PM [id number] CUEVAS POB DISCHARGE MEDICATIONS Current Discharge Medication [...] September 08, 2021 TIME: 7:27 AM PAGER: [phone] [facility] ANES PRE-OPon 09-07-2021 ANES PRE-OP HNO ID: [id number] Author: Darrion Payne MD Service: Anesthesiology Author [...] and consent discussed: yes. Patient / Responsible Green Party agrees to proceed: yes Patient / [...] September 07, 2021 TIME: 8:57 AM CSN: [id number] [facility] BRIEF OP NOTon 09-07-2021 BRIEF OP NOT HNO ID: [id number] Author: Sam Naidu DO Service: Gynecology Oncology Author Type: Resident Type: Brief Op Note Filed: 09/07/2021 1:06 PM Note Text: BRIEF OPERATIVE / PROCEDURE NOTE LOG ID: [id number] SURGERY/PROCEDURE DATE: 09/07/2021 INCISION/PROCEDURE START TIME: 9:14 AM INCISION CLOSE/PROCEDURE END TIME: 12:36 PM SURGEON(S)/PROCEDURALIST( S) AND STORE PROMOTER(S): Surgeon(s) and Role: * Jennifer Cuevas MD [...] September 07, 2021 TIME: 1:01 PM [facility] Bacteria Ur Culton Bacteria identified Cx [...] F Trimeth sulfameth R >2 F Abnormal [facility] Comment on above: Performed By: #### 6 30-4 ####[facility] [id number] [place] [address] [place] Basic metabolic 2000 panelon 09-07-2021 Anion gap [Moles/Vol] 13 mmol/L Normal 9-18 [facility] Comment on above: Order Comment: Speci men Type: BLOOD SPECIMEN Ordering Facility: [facility] Address: [address] [place] [address] Performed By: #### 2 4321-2 #### [facility] CLIA [id number] [address] [place] [address] [place] Calcium [Mass/Vol] 9.2 mg/dL Normal 8.5-10.2 [facility] Comment on above: Order Comment: Speci men Type: BLOOD SPECIMEN Ordering Facility: [facility] Address: [address] [place] [address] Performed By: #### 2 4321-2 #### [facility] CLIA [id number] 1 [place] [address] [place] Chloride [Moles/Vol] 97 mmol/L Normal 97-105 [facility] Comment on above: Order Comment: Speci men Type: BLOOD SPECIMEN Ordering Facility: [facility] Address: [address] [place] [address] Performed By: #### 2 4321-2 #### [facility] CLIA [id number] [address] [place] CO2 [Moles/Vol] 22 mmol/L Normal 22-30 [facility] Comment on above: Order Comment: Speci men Type: BLOOD SPECIMEN Ordering Facility: [facility] Address: [address] [place] [address] Performed By: #### 2 4321-2 #### [facility] CLIA [id number] [address] [place] Creatinine [Mass/Vol] 0.70 mg/dL Normal 0.58-0.96 [facility] Comment on above: Order Comment: Speci men Type: BLOOD SPECIMEN Ordering Facility: [facility] Address: [address] [place] [address] Performed By: #### 2 4321-2 #### [facility] CLIA [id number] [address] ESTIMATED GLOMERULAR FILTRATION RATE 94 mL/min/1.73m??? Normal >=60 [facility] Comment on above: Order Comment: Speci men Type: BLOOD SPECIMEN Ordering Facility: [facility] Address: [address] [place] [address] Result Comment: Laura mated Glomerular Filtration Rate [...] Performed By: #### 2 4321-2 #### [facility] CLIA [id number] [address] [place] Glucose [Mass/Vol] 303 mg/dL High 74-99 [facility] Comment on above: Order Comment: Bobbi alford Type: BLOOD SPECIMEN Ordering Facility: [facility] Address: [address] [place] [address] Result Comment: The [place] Diabetes Association (ADA) provides guidance for cutoff [...] Standards of Medical Care in Diabetes 2016, [place] Diabetes Association. Diabetes Care. 2016.39(Suppl 1). Performed By: #### 2 4321-2 #### [facility] CLIA [id number] [address] [place] [address] [place] Potassium [Moles/Vol] 4.9 mmol/L Normal 3.7-5.1 [facility] Comment on above: Order Comment: Bobbi alford Type: BLOOD SPECIMEN Ordering Facility: [facility] Address: [address] [place] [address] Performed By: #### 2 4321-2 #### [facility] CLIA [id number] 1 [place] [address] [place] Sodium [Moles/Vol] 132 mmol/L Low 136-144 [facility] Comment on above: Order Comment: Bobbi alford Type: BLOOD SPECIMEN Ordering Facility: [facility] Address: [address] [address] Performed By: #### 2 4321-2 #### [facility] CLIA [id number] 1 [place] [address] [place] Urea nitrogen [Mass/Vol] 13 mg/dL Normal 7-21 [facility] Comment on above: Order Comment: Bobbi alford Type: BLOOD SPECIMEN Ordering Facility: [facility] Address: [address] [address] Performed By: #### 2 4321-2 #### [facility] CLIA [id number] [address] CBC panel Auto (Bld)on 09-07 Erythrocyte distribution width (RBC) [Ratio] 14.2 % Normal 11.5-15.0 [facility] Comment on above: Order Comment: Speci men Type: BLOOD SPECIMEN Ordering Facility: [facility] Address: [address] [place] [address] Performed By: #### 5 8410-2 #### [facility] CLIA [id number] [address] Hematocrit (Bld) [Volume fraction] 44.0 % Normal 36.0-46.0 [facility] Comment on above: Order Comment: Speci men Type: BLOOD SPECIMEN Ordering Facility: [facility] Address: [address] [place] [address] Performed By: #### 5 8410-2 #### [facility] CLIA [id number] [address] Hemoglobin (Bld) [Mass/Vol] 14.2 g/dL Normal 11.5-15.5 [facility] Comment on above: Order Comment: Speci men Type: BLOOD SPECIMEN Ordering Facility: [facility] Address: [address] [place] [address] Performed By: #### 5 8410-2 #### [facility] CLIA [id number] [address] MCH (RBC) [Entitic mass] 28.9 pg Normal 26.0-34.0 [facility] Comment on above: Order Comment: Speci men Type: BLOOD SPECIMEN Ordering Facility: [facility] Address: [address] [place] [address] Performed By: #### 5 8410-2 #### [facility] CLIA [id number] [address] MCHC (RBC) [Mass/Vol] 32.3 g/dL Normal 30.5-36.0 [facility] Comment on above: Order Comment: Speci men Type: BLOOD SPECIMEN Ordering Facility: [facility] Address: [address] Performed By: #### 5 8410-2 #### [facility] CLIA [id number] [address] MCV (RBC) [Entitic vol] 89.6 fL Normal 80.0-100.0 [facility] Comment on above: Order Comment: Speci men Type: BLOOD SPECIMEN Ordering Facility: [facility] Address: [address] [place] [address] Performed By: #### 5 8410-2 #### [facility] CLIA [id number] [address] Nucleated RBC (Bld) [#/Vol] 10*3/uL Normal <0.01 [facility] Comment on above: Order Comment: Speci men Type: BLOOD SPECIMEN Ordering Facility: [facility] Address: [address] [place], [place] [address] Performed By: #### 5 8410-2 #### [facility] CLIA [id number] [address] Platelet mean volume (Bld) [Entitic vol] 10.8 fL Normal 9.0-12.7 [facility] Comment on above: Order Comment: Speci men Type: BLOOD SPECIMEN Ordering Facility: [facility] Address: [address] Performed By: #### 5 8410-2 #### [facility] CLIA [id number] [address] Platelets (Bld) [#/Vol] 153 10*3/uL Normal 150-400 [facility] Comment on above: Order Comment: Speci men Type: BLOOD SPECIMEN Ordering Facility: [facility] Address: [address] Performed By: #### 5 8410-2 #### [facility] CLIA [id number] [address] RBC (Bld) [#/Vol] 4.91 10*6/uL Normal 3.90-5.20 [facility] Comment on above: Order Comment: Speci men Type: BLOOD SPECIMEN Ordering Facility: [facility] Address: [address] [place] [address] Performed By: #### 5 8410-2 #### [facility] CLIA [id number] [address] WBC (Bld) [#/Vol] 8.23 10*3/uL Normal 3.70-11.00 [facility] Comment on above: Order Comment: Speci men Type: BLOOD SPECIMEN Ordering Facility: [facility] Address: [address] [place] [address] Performed By: #### 5 8410-2 #### [facility] CLIA [id number] [address] CONSULT PROGon 09-07-2021 CONSULT PROG HNO ID: [id number] Author: Niki Crabtree RPh Service: Pharmacy Author Type: Pharmacist Type: [...] Crabtree RPh DATE/TIME: 09/07/2021 4:32 PM [facility] NURSING PROGon 09-07-2021 NURSING PROG HNO ID: [id number] Author: Lydia Oliver RN Service: Nursing Author Type: Registered Nurse Type: Nursing Progress Note Filed: 09/07/2021 3:19 PM Note Text: Spoke with Bernadine at [facility] to let her know patient was spending the night, as she said there is no nursing staff after 2300 [facility] NURSING PROG HNO ID: [id number] Author: Lydia Oliver, RN Service: Nursing Author [...] continue home meds on the floor. [facility] SARS-CoV-2 RNA Resp Ql SALLY+p robeon 09-07-2021 SARS-CoV-2 (COVID-19) RNA SALLY+probe Ql (Resp) COVID 19 RESULT: SARS-CoV-2 (Agent of COVID-19) Not Detected by RT-PCR or equivalent method. This test has been authorized by FDA under an Emergency Use Authorization (EUA). [facility] Comment on above: Performed By: #### 9 4500-6 ####[facility] [id number] [address] SURGICAL PATHOLOGYon 022 CASE REPORT [facility] Comment on above: Order Comment: Speci men Type: TISSUE SPECIMEN Ordering Facility: [facility] Address: [address] [place], [place] [id number] Result Comment: Surg ical Pathology Report Case: [id number] Authorizing Provider: Jennifer Cuevas MD Collected: 09/07/2021 11:04 AM Ordering Location: [facility] Received: 09/07/2021 11:12 AM Pathologist: Oseas May MD Intraop: Derick Alvarez MD Specimen: UTERUS, CERVIX, BILATERAL FALLOPIAN TUBES AND BILATERAL OVARIES Performed By: #### S #### [facility] CLIA [id number] [address] DIAGNOSIS COMMENT Normal [facility] Comment on above: Order Comment: Speci men Type: TISSUE SPECIMEN Ordering Facility: [facility] Address: [address] [place] [phone] Result Comment: Immu nohistochemical staining performed on [...] A11 and A16 were reviewed at the [facility] gynecologic pathology consensus conference via telepathology on 09/09/20[address] Lupe Younger and Andra Franco agree with the diagnosis of acute salpingitis. Laboratory Developed Test (LDT) Disclaimer: Performance characteristics of immunohistochemical, immunofluorescent and chromogenic in-situ hybridization tests have been determined by the performing laboratory within [facility]???s [facility] Pathology and Laboratory Medicine [place] ([facility], [facility], [facility] or [facility]) in a manner consistent with CLIA requirements. One or more of these tests have not been cleared or approved by the FDA. [facility] is regulated under CLIA as qualified to perform high-complexity testing. These tests are used for clinical purposes. They should not be regarded as investigational or for research. Positive and negative controls stain appropriately. Performed By: #### S #### [facility] CLIA [id number] [address] [place] [address] OF [facility] FINAL DIAGNOSIS Normal [facility] Comment on above: Order Comment: Speci men Type: TISSUE SPECIMEN Ordering Facility: [facility] Address: [address] [place] [address] Result Comment: A. U terus, cervix, bilateral [...] -Unremarkable ovaries. Performed By: #### S #### [facility] CLIA [id number] [address] FINAL PERFORMING LAB Normal [facility] Comment on above: Order Comment: Speci men Type: TISSUE SPECIMEN Ordering Facility: [facility] Address: [address] [place] [address] Result Comment: Diag nostic interpretation performed at [facility], [address] [place] [address] CLIA# [id number] Spike Machine Feeder: Alok Jonas M.D. Performed By: #### S #### [facility] CLIA [id number] [address] GROSS DESCRIPTION Normal [facility] Comment on above: Order Comment: Speci men Type: TISSUE SPECIMEN Ordering Facility: [facility] Address: [address] [place] [address] Result Comment: A. U TERUS, CERVIX, BILATERAL [...] fibrous ovarian parenchyma with no lesions identified. Iron Cutter sections are submitted as follows: A1-anterior cervix [...] A 17-right ovary Gross examination performed at [facility], [address] [place] [address] CLIA#[id number] OLS September 08, 2021 10:33 AM Performed By: #### S #### [facility] CLIA [id number] [address] [place] INTRAOPERATIVE DIAGNOSIS [facility] Comment on above: Order Comment: Speci men Type: TISSUE SPECIMEN Ordering Facility: [facility] Address: [address] [place], [place] [address] Result Comment: A. U TERUS, CERVIX, BILATERAL FALLOPIAN TUBES AND BILATERAL OVARIES. Gross diagnosis: Uterus, cervix, bilateral fallopian tubes, bilateral ovaries- Endometrial tumor grossly invading greater than 50% into the uterine wall (AC) Performed By: #### S #### [facility] CLIA [id number] [address] [place] SYNOPTIC REPORT ENDOMETRIUM Normal [facility] Comment on above: Order Comment: Speci men Type: TISSUE SPECIMEN Ordering Facility: [facility] Address: [address] [place] [address] Result Comment: ENDO METRIUM, HYSTERECTOMY - All [...] Stage: IB Performed By: #### S #### [facility] CLIA [id number] [address] CBC panel Auto (Bld)on 09-01 Erythrocyte distribution width (RBC) [Ratio] 14.5 % Normal 11.5-15.0 [facility] Comment on above: Order Comment: Speci men Type: BLOOD SPECIMEN Ordering Facility: [facility] Address: [address] [place] [address] Performed By: #### 5 8410-2 #### [facility] CLIA [id number] [address] [place] [address] Hematocrit (Bld) [Volume fraction] 41.0 % Normal 36.0-46.0 [facility] Comment on above: Order Comment: Speci men Type: BLOOD SPECIMEN Ordering Facility: [facility] Address: [address] [place] [address] Performed By: #### 5 8410-2 #### [facility] CLIA [id number] [address] Hemoglobin (Bld) [Mass/Vol] 13.3 g/dL Normal 11.5-15.5 [facility] Comment on above: Order Comment: Speci men Type: BLOOD SPECIMEN Ordering Facility: [facility] Address: [address] [place] [address] Performed By: #### 5 8410-2 #### [facility] CLIA [id number] [address] MCH (RBC) [Entitic mass] 28.8 pg Normal 26.0-34.0 [facility] Comment on above: Order Comment: Speci men Type: BLOOD SPECIMEN Ordering Facility: [facility] Address: [address] [address] Performed By: #### 5 8410-2 #### [facility] CLIA [id number] [address] MCHC (RBC) [Mass/Vol] 32.4 g/dL Normal 30.5-36.0 [facility] Comment on above: Order Comment: Speci men Type: BLOOD SPECIMEN Ordering Facility: [facility] Address: [address] [place] [address] Performed By: #### 5 8410-2 #### [facility] CLIA [id number] [address] MCV (RBC) [Entitic vol] 88.7 fL Normal 80.0-100.0 [facility] Comment on above: Order Comment: Speci men Type: BLOOD SPECIMEN Ordering Facility: [facility] Address: [address] [place] [address] Performed By: #### 5 8410-2 #### [facility] CLIA [id number] [address] Nucleated RBC (Bld) [#/Vol] 10*3/uL Normal <0.01 [facility] Comment on above: Order Comment: Speci men Type: BLOOD SPECIMEN Ordering Facility: [facility] Address: [address] [place] [address] Performed By: #### 5 8410-2 #### [facility] CLIA [id number] [address] Platelet mean volume (Bld) [Entitic vol] 10.5 fL Normal 9.0-12.7 [facility] Comment on above: Order Comment: Speci men Type: BLOOD SPECIMEN Ordering Facility: [facility] Address: [address] [place] [address] Performed By: #### 5 8410-2 #### [facility] CLIA [id number] [address] Platelets (Bld) [#/Vol] 167 10*3/uL Normal 150-400 [facility] Comment on above: Order Comment: Speci men Type: BLOOD SPECIMEN Ordering Facility: [facility] Address: [address] [place] [address] Performed By: #### 5 8410-2 #### [facility] CLIA [id number] [address] [place] RBC (Bld) [#/Vol] 4.62 10*6/uL Normal 3.90-5.20 [facility] Comment on above: Order Comment: Speci men Type: BLOOD SPECIMEN Ordering Facility: [facility] Address: [address] [place] [address] Performed By: #### 5 8410-2 #### [facility] CLIA [id number] [address] [place] [address] WBC (Bld) [#/Vol] 6.29 10*3/uL Normal 3.70-11.00 [facility] Comment on above: Order Comment: Speci men Type: BLOOD SPECIMEN Ordering Facility: [facility] Address: [address] [place] [address] Performed By: #### 5 8410-2 #### [facility] CLIA [id number] [address] CONFIRM BLOOD TYPEon 022 ABO O [facility] Comment on above: Order Comment: Speci men Type: BLOOD SPECIMEN Ordering Facility: [facility] Address: [address] [place] [address] Performed By: #### C ONABO #### [facility] CLIA [id number] [address] Rh Nom (Bld) Positive Normal [facility] Comment on above: Order Comment: Speci men Type: BLOOD SPECIMEN Ordering Facility: [facility] Address: [address] [place] [address] Performed By: #### C ONABO #### [facility] CLIA [id number] [address] [place] [address] [place] HISTORY PHYSICALon 2 HISTORY PHYSICAL HNO ID: [id number] Author: Naila Barrientos APRN.MICHELLE Service: ? Author Type: Nurse Practitioner [...] PELVIC (N/A) at the request of Dr. Jenniefr Cuevas for routine HANDP. My final recommendation [...] with Dr. Cuevas. Surgery will be at [facility] Scheduled as an TBA Have you been in contact with someone with known coronavirus/Covid 19? no Have you had surgery or pre testing at [facility] in the past 3 years? no [...] Negative for: AICD/PPM, chest pain, CHF, recent OR and open heart surgery. GI: Positive for: abdominal pain Negative for: nausea and vomiting. : No history of dysuria, frequency or incontinence, stones or chronic kidney disease. No difficulty urinating, nocturia > 1 time per night or hematuria. 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 [...] Yes de (more content not included)... [facility] TYPE AND SCREEN,30 DAYon ABO O [facility] Comment on above: Order Comment: Speci men Type: BLOOD SPECIMEN Ordering Facility: [facility] Address: [address] [place] [address] Performed By: #### T SCR30 #### [facility] CLIA [id number] [address] HISTORICAL AB SCR STATUS Negative [facility] Comment on above: Order Comment: Speci men Type: BLOOD SPECIMEN Ordering Facility: [facility] Address: [address] [place] [address] Performed By: #### T SCR30 #### [facility] CLIA [id number] [address] Rh Nom (Bld) Positive [facility] Comment on above: Order Comment: Speci men Type: BLOOD SPECIMEN Ordering Facility: [facility] Address: [address] [place] [address] Performed By: #### T SCR30 #### [facility] CLIA [id number] [address] CNOVSPon 08-21-2021 CNOVSP Visit (SP) Office (ROGELIO) ----- PAUL,VIDA A ([id number]) 1950 F Date Time Provider Department 08/21/21 1:30 PM JENNIFER CUEVAS During your visit today, we recorded the following information about you: Temperature Pulse Blood pressure Weight 97.8 degrees 113/minute 144/72 130 kg Height 1.651 m Jennifer Cuevas MD 08/26/2021 1:21 PM Signed Gynecologic Oncology [facility] Consult Date of service: 08/21/2021 PCP: [...] many years since she has seen a power station operator, maybe > 10 years. 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 Age at Menarche: ? Age at First : ? Age at Menopause: ? 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 Sexual Activity: Not [...] as needed. (more content not included)... [facility] CNPElva 08-07-2021 SHORTY Telephone (ÁNGEL Sprague) ----- VIDA NINA ([id number]) 1950 F Date Time Provider Department 08/07/21 JENNIFER CUEVAS During your visit today, we recorded the following information about you: Jeffrey Ferris 08/07/2021 1:26 PM Signed Called gilberto the nurse at [facility] where the patient is living and she [...] ERYTHEMATOSUS [M32.9] 07/15/2005 MYALGIA AND MYOSITIS NOS [[id number]] 07/15/2005 Elevated transaminase level [R74.01] 09/04/2014 Elevated blood sugar [R73.9] 09/04/2014 Mood disorder (HCC) [F39] 09/04/2014 Encounter Status:Closed by JEFFREY FERRIS on [facility] Tele[facility] (OBGYWM) ----- VIDA NINA ([id number]) 1950 F Date Time Provider Department 08/05/21 KRUNAL ERAZOGY During your visit today, we recorded the following information about you: Krunal Erazo MD 08/05/2021 8:30 AM Signed Called listed numbers under home phone, and the numbers are not working. Called number listed for patient's rn case manager regarding results, but it was stated that patient does not have a rn case manager currently. I was given the number [phone] to call, which is [facility] where patient resides. Called this number and left a VM asking them to call back regarding patient results. I had offered the patient a follow up visit this week to review results, but she did prefer a phone call. Pathology shows endometrioid adenocarcinoma. I will place a referral to inspector technician oncology. Recommend that she see Dr. Jennifer Cuevas in [place] as that would be the closest for her. Krunal Erazo MD 08/05/2021 10:06 AM Signed Discussed results with a nurse Gilberto over the phone and plan of care. She states patient saw an oncologist as well at [facility] and is scheduled for a CTAP. She will have the patient call our office back today for me to discuss results with her as well. Krunal Erazo MD 08/05/2021 10:19 AM Signed Discussed results with the patient and she understands the biopsy shows an endometrial cancer, and that I placed a referral to inspector technician oncology for a consultation. Please assist in scheduling this patient. Andra Jesus RN 08/05/2021 11:33 AM Signed Scheduled patient with Dr. Cuevas this Tuesday, 08/07 at 1:00 PM. Spoke with the nurseGilberto. Patient's CT scan is scheduled for Tuesday. Phone number given to change appointment since transportation needs arranged. Notified Gilberto that he is in [place] on Tuesdays and every other Tuesday. 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] Order(s):CONSULT TO GYNECOLOGIC/ONCOLOGY [[id number]] Order #: [id number]: 1 FUTURE Prescriptions as of 08/05/2021 - [...] ERYTHEMATOSUS [M32.9] 07/15/2005 MYALGIA AND MYOSITIS NOS [ZTP0701] 07/15/2005 Elevated transaminase level [R74.01] 09/04/2014 Elevated blood sugar [R73.9] 09/04/2014 Mood disorder (HCC) [F39] 09/04/2014 Encounter Status:Closed by PAMELA MATUTE RN on 08/05/21 Normal [facility] No Panel Informationon 07-30 CA 125 Antigen 85.5 U/mL 0.0-38.1 [facility] Work Phone: Comment on above: [facility] El ectrochemiluminescence Immunoassay(ECLIA)Values obtained with different assay methods or kits cannotbe used interchangeably. Results cannot be interpreted asabsolute evidence of the presence or absence of malignantdisease.Performed at: [address] [id number] Director: Suhas Deal PhD, Phone: [phone] CNOVon 07-29-2021 CNOV Office Visit (OBGYWM ) ----- VIDA NINA ([id number]) 1950 F Date Time Provider Department 07/29/21 [...] many years since she has seen a power station operator, maybe > 10 years. 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 Normal [facility] SURGICAL PATHOLOGYon 022 SURGICAL PATHOLOGY ADDENDUM PRESENT Specimen originated from [facility] Specimen #: [id number] Submitting Physician: KURNAL ERAZO DO FINAL DIAGNOSIS 1. Cervix at [...] in-situ hybridization tests have been determined by [facility]'s [facility] [place] ([facility]) in a manner consistent with CLIA requirements. One or more of these tests have not been cleared or approved by the FDA. [facility] is regulated under CLIA as qualified [...] completed on all uterine/endometrial carcinomas at the [facility]. IHC stains for MMR proteins were performed [...] more information or questions, please call the [facility] at . Andra Webb (more content not included)... Normal [facility] CNPNon 07-27-2021 CNPN Telephone (OBGYWM) ----- VIDA NINA ([id number]) 1950 F [facility] Date Time Provider Department 07/27/21 KRUNAL ERAZO OBGYWM During your visit today, we recorded the following information about you: Andra Jesus RN 07/27/2021 8:14 AM Signed JONATHAN states that patient was seen at [facility] ER yesterday for vaginal bleeding and possible pelvic mass. Called [facility] ER and requested records and imaging [...] patient is minimally ambulatory and coming from [facility]. Since she is a new patient who is minimally ambulatory, and likely needs an EMB and cervical biopsies, would prefer to have 60 min appointment to get everything completed in one day as well as certified alcohol counselor her. Can offer her the 2.20 [...] ERYTHEMATOSUS [M32.9] 07/15/2005 MYALGIA AND MYOSITIS NOS [[id number]] 07/15/2005 Elevated transaminase level [R74.01] 09/04/2014 Elevated blood sugar [R73.9] 09/04/2014 Mood disorder (HCC) [F39] 09/04/2014 Encounter Status:Closed by ELISABETH GREEN LPN on 07/27/21 Normal [facility] Absolute lymphocyte counton 07-26-2021 Lymphocytes Auto (Unsp spec) [#/Vol] 1.24 10*3/uL 0.83-4.51 [facility] Work Phone: Basophil percentageon 2021 Basophils/100 WBC (Bld) 0.6 % 0-1 [facility] Work Phone: Chloride [Moles/Vol] 105 mmol/L 98-107 [facility] Work Phone: Eosinophils/100 WBC (Bld) 3.9 % 0-5 [facility] Work Phone: Glucose [Mass/Vol] 185 mg/dL 74-106 [facility] Work Phone: Comment on above: Fasting Glucose resu lt greater than or equal to 126 mg/dL suggests DIABETES MELLITUS per A.D.A. criteria. Neutrophils (Bld) [#/Vol] 3.2 10*3/uL 2.0-7.7 [facility] Work Phone: Neutrophils/100 WBC (Bld) 62.1 % 47-70 [facility] Work Phone: Potassium [Moles/Vol] 4.4 mmol/L 3.5-5.1 [facility] Work Phone: Sodium [Moles/Vol] 135 mmol/L 136-145 [facility] Work Phone: WBC (Bld) [#/Vol] 5.1 10*3/uL 4.4-11.0 [facility] Work Phone: Blood erythrocytes count (nu mber/volume)on 07-26-2021 RBC (Bld) [#/Vol] 4.66 10*6/uL 4.2-5.4 [facility] Work Phone: Blood hemoglobin measurement (mass/volume)on 07-26-2021 Hemoglobin (Bld) [Mass/Vol] 13.8 g/dL 12.0-15.0 [facility] Work Phone: Blood lymphocytes/100 leukoc yteson 07-26-2021 Lymphocytes/100 WBC (Bld) 24.5 % 19-41 [facility] Work Phone: Blood monocytes/100 leukocyt eson 07-26-2021 Monocytes/100 WBC (Bld) 8.5 % 0-10 [facility] Work Phone: Blood platelet mean volumeon 07-26-2021 Platelet mean volume (Bld) [Entitic vol] 10.1 fL 6.2-12.0 [facility] Work Phone: Determination of erythrocyte mean corpuscular volume (MCV)on 07-26-2021 MCV (RBC) [Entitic vol] 88.2 fL 81-99 [facility] Work Phone: Hematocrit Auto (Bld) [Volum e fraction]on 07-26-2021 Hematocrit (Bld) [Volume fraction] 41.1 % 37-47 [facility] Work Phone: Laboratory - Chemistry and C hemistry - challengeon 07-26-2021 CO2 [Moles/Vol] 24.0 mmol/L 21.0-32.0 [facility] Work Phone: Urea nitrogen/Creatinine [Mass ratio] 17.3 mg/mg - [facility] Work Phone: Laboratory - Hematology and Cell countson 07-26-2021 Erythrocyte distribution width (RBC) [Entitic vol] 46.8 fL 35.1-43.9 [facility] Work Phone: Erythrocyte distribution width (RBC) [Ratio] 14.6 % 11.6-14.6 [facility] Work Phone: Immature granulocytes/100 WBC (Bld) 0.400 % 0.0-0.9 [facility] Work Phone: Comment on above: IG% - Immature Granu locytes (promyelocytes, myelocytes and metamyelocytes) > 1% indicates that a LEFT SHIFT is Present. MCH (RBC) [Entitic mass] 29.6 pg 27.0-32.0 [facility] Work Phone: Nucleated RBC/100 WBC (Bld) [Ratio] 0 % 0-5 [facility] Work Phone: MCHC Auto (RBC) [Mass/Vol]on 07-26-2021 MCHC (RBC) [Mass/Vol] 33.6 g/dL 32-36 [facility] Work Phone: No Panel Informationon 07-26 Estimated Creatinine Clearance Calc 55.69 ml/min [facility] Work Phone: Estimated GFR (MDRD) Amer 84 mL/min >60 [facility] Work Phone: Comment on above: GFR Calc Estimated GFR (MDRD) Non-Af Amer 69 mL/min >60 [facility] Work Phone: Comment on above: Non- GFR Calc Platelets bldon 07-26-2021 Platelets (Bld) [#/Vol] 151 10*3/uL 150-450 [facility] Work Phone: Serum or plasma calcium kim urement (mass/volume)on 07-26-2021 Calcium [Mass/Vol] 9.2 mg/dL 8.5-10.1 [facility] Work Phone: Serum or plasma creatinine m easurement (mass/volume)on 07-26-2021 Creatinine [Mass/Vol] 0.87 mg/dL 0.55-1.02 [facility] Work Phone: Comment on above: The validity of the calculated GFR & GFRAA in patients over 70 years has not been determined. Clinical correlation is essential. Serum or plasma urea nitroge n measurement (mass/volume)on 07-26-2021 Urea nitrogen [Mass/Vol] 15 mg/dL 7-18 [facility] Work Phone: Thin prep Papanicolaou smear with manual screeningon 07-26-2021 Thin prep Papanicolaou smear with manual screening 6 5-15 [facility] Work Phone: Absolute lymphocyte counton 07-14-2021 Lymphocytes Auto (Unsp spec) [#/Vol] 1.32 10*3/uL 0.83-4.51 [facility] Work Phone: Basophil percentageon 2021 Basophils/100 WBC (Bld) 0.6 % 0-1 [facility] Work Phone: Bilirubin [Mass/Vol] 0.40 mg/dL 0.20-1.00 [facility] Work Phone: Comment on above: For patients on eltr ombopag therapy, use of Dimension Morton TBIL is not recommended. Chloride [Moles/Vol] 104 mmol/L 98-107 [facility] Work Phone: Eosinophils/100 WBC (Bld) 3.1 % 0-5 [facility] Work Phone: Glucose [Mass/Vol] 201 mg/dL 74-106 [facility] Work Phone: Comment on above: Glucose result great er than or equal to 200 mg/dLsuggests DIABETES MELLITUS per A.D.A. criteria. Neutrophils (Bld) [#/Vol] 3.0 10*3/uL 2.0-7.7 [facility] Work Phone: Neutrophils/100 WBC (Bld) 59.5 % 47-70 [facility] Work Phone: Potassium [Moles/Vol] 4.2 mmol/L 3.5-5.1 [facility] Work Phone: Protein [Mass/Vol] 7.6 g/dL 6.4-8.2 [facility] Work Phone: Sodium [Moles/Vol] 136 mmol/L 136-145 [facility] Work Phone: WBC (Bld) [#/Vol] 5.1 10*3/uL 4.4-11.0 [facility] Work Phone: Blood erythrocytes count (nu mber/volume)on 07-14-2021 RBC (Bld) [#/Vol] 4.23 10*6/uL 4.2-5.4 [facility] Work Phone: Blood hemoglobin measurement (mass/volume)on 07-14-2021 Hemoglobin (Bld) [Mass/Vol] 12.9 g/dL 12.0-15.0 [facility] Work Phone: Blood lymphocytes/100 leukoc yteson 07-14-2021 Lymphocytes/100 WBC (Bld) 26.0 % 19-41 [facility] Work Phone: Blood monocytes/100 leukocyt eson 07-14-2021 Monocytes/100 WBC (Bld) 10.4 % 0-10 [facility] Work Phone: Blood platelet mean volumeon 07-14-2021 Platelet mean volume (Bld) [Entitic vol] 10.9 fL 6.2-12.0 [facility] Work Phone: Determination of erythrocyte mean corpuscular volume (MCV)on 07-14-2021 MCV (RBC) [Entitic vol] 88.9 fL 81-99 [facility] Work Phone: Hematocrit Auto (Bld) [Volum e fraction]on 07-14-2021 Hematocrit (Bld) [Volume fraction] 37.6 % 37-47 [facility] Work Phone: Laboratory - Chemistry and C hemistry - challengeon 07-14-2021 ALP [Catalytic activity/Vol] 144 U/L 45-117 [facility] Work Phone: ALT [Catalytic activity/Vol] 28 U/L 13-56 [facility] Work Phone: CO2 [Moles/Vol] 24.0 mmol/L 21.0-32.0 [facility] Work Phone: Globulin (S) [Mass/Vol] 4.7 g/dL 2.2-4.2 [facility] Work Phone: Urea nitrogen/Creatinine [Mass ratio] 18.0 mg/mg 10-20 [facility] Work Phone: Laboratory - Hematology and Cell countson 07-14-2021 Erythrocyte distribution width (RBC) [Entitic vol] 46.7 fL 35.1-43.9 [facility] Work Phone: Erythrocyte distribution width (RBC) [Ratio] 14.5 % 11.6-14.6 [facility] Work Phone: Immature granulocytes/100 WBC (Bld) 0.400 % 0.0-0.9 [facility] Work Phone: Comment on above: IG% - Immature Granu locytes (promyelocytes, myelocytes and metamyelocytes) > 1% indicates that a LEFT SHIFT is Present. MCH (RBC) [Entitic mass] 30.5 pg 27.0-32.0 [facility] Work Phone: Nucleated RBC/100 WBC (Bld) [Ratio] 0 % 0-5 [facility] Work Phone: MCHC Auto (RBC) [Mass/Vol]on 07-14-2021 MCHC (RBC) [Mass/Vol] 34.3 g/dL 32-36 [facility] Work Phone: No Panel Informationon 07-14 Estimated GFR (MDRD) Amer 95 mL/min >60 [facility] Work Phone: Comment on above: GFR Calc Estimated GFR (MDRD) Non-Af Amer 78 mL/min >60 [facility] Work Phone: Comment on above: Non- GFR Calc Vitamin D 25-Hydroxy 79.0 ng/mL [facility] Work Phone: Comment on above: Vitamin D 25(OH) Sta tus Range Deficiency <20 ng/mL (50nmol/L) Insufficiency 20 - 30 ng/mL (50 - 75 nmol/L) Sufficiency 30 - 100 ng/mL (75 - 250 nmol/L) Toxicity >100 ng/mL (>250 nmol/L) Platelets bldon 07-14-2021 Platelets (Bld) [#/Vol] 170 10*3/uL 150-450 [facility] Work Phone: Serum or plasma albumin kim urement (mass/volume)on 07-14-2021 Albumin [Mass/Vol] 2.9 g/dL 3.2-5.0 [facility] Work Phone: Serum or plasma albumin/glob ulin mass ratioon 07-14-2021 Albumin/Globulin [Mass ratio] 0.6 {ratio} 0.9-2.4 [facility] Work Phone: Serum or plasma calcium kim urement (mass/volume)on 07-14-2021 Calcium [Mass/Vol] 8.7 mg/dL 8.5-10.1 [facility] Work Phone: Serum or plasma creatinine m easurement (mass/volume)on 07-14-2021 Creatinine [Mass/Vol] 0.78 mg/dL 0.55-1.02 [facility] Work Phone: Comment on above: The validity of the calculated GFR & GFRAA in patients over 70 years has not been determined. Clinical correlation is essential. Serum or plasma urea nitroge n measurement (mass/volume)on 07-14-2021 Urea nitrogen [Mass/Vol] 14 mg/dL 7-18 [facility] Work Phone: Thin prep Papanicolaou smear with manual screeningon 07-14-2021 Thin prep Papanicolaou smear with manual screening 26 U/L 15-37 [facility] Work Phone: Thin prep Papanicolaou smear with manual screening 8 5-15 [facility] Work Phone: Absolute lymphocyte counton 07-08-2021 Lymphocytes Auto (Unsp spec) [#/Vol] 1.26 10*3/uL 0.83-4.51 [facility] Work Phone: Basophil percentageon 2021 Basophils/100 WBC (Bld) 0.6 % 0-1 [facility] Work Phone: Bilirubin [Mass/Vol] 0.40 mg/dL 0.20-1.00 [facility] Work Phone: Comment on above: For patients on eltr ombopag therapy, use of Dimension Morton TBIL is not recommended. Chloride [Moles/Vol] 104 mmol/L 98-107 [facility] Work Phone: Eosinophils/100 WBC (Bld) 4.5 % 0-5 [facility] Work Phone: Glucose [Mass/Vol] 181 mg/dL 74-106 [facility] Work Phone: Comment on above: Fasting Glucose resu lt greater than or equal to 126 mg/dL suggests DIABETES MELLITUS per A.D.A. criteria. Neutrophils (Bld) [#/Vol] 2.8 10*3/uL 2.0-7.7 [facility] Work Phone: Neutrophils/100 WBC (Bld) 58.0 % 47-70 [facility] Work Phone: Potassium [Moles/Vol] 4.5 mmol/L 3.5-5.1 [facility] Work Phone: Protein [Mass/Vol] 7.5 g/dL 6.4-8.2 [facility] Work Phone: Sodium [Moles/Vol] 136 mmol/L 136-145 [facility] Work Phone: WBC (Bld) [#/Vol] 4.9 10*3/uL 4.4-11.0 [facility] Work Phone: Blood erythrocytes count (nu mber/volume)on 07-08-2021 RBC (Bld) [#/Vol] 4.16 10*6/uL 4.2-5.4 [facility] Work Phone: Blood hemoglobin measurement (mass/volume)on 07-08-2021 Hemoglobin (Bld) [Mass/Vol] 12.2 g/dL 12.0-15.0 [facility] Work Phone: Blood lymphocytes/100 leukoc yteson 07-08-2021 Lymphocytes/100 WBC (Bld) 25.7 % 19-41 [facility] Work Phone: Blood monocytes/100 leukocyt eson 07-08-2021 Monocytes/100 WBC (Bld) 10.8 % 0-10 [facility] Work Phone: Blood platelet mean volumeon 07-08-2021 Platelet mean volume (Bld) [Entitic vol] 11.2 fL 6.2-12.0 [facility] Work Phone: Determination of erythrocyte mean corpuscular volume (MCV)on 07-08-2021 MCV (RBC) [Entitic vol] 89.2 fL 81-99 [facility] Work Phone: Hematocrit Auto (Bld) [Volum e fraction]on 07-08-2021 Hematocrit (Bld) [Volume fraction] 37.1 % 37-47 [facility] Work Phone: Laboratory - Chemistry and C hemistry - challengeon 07-08-2021 ALP [Catalytic activity/Vol] 131 U/L 45-117 [facility] Work Phone: ALT [Catalytic activity/Vol] 32 U/L 13-56 [facility] Work Phone: CO2 [Moles/Vol] 23.0 mmol/L 21.0-32.0 [facility] Work Phone: Globulin (S) [Mass/Vol] 4.6 g/dL 2.2-4.2 [facility] Work Phone: Urea nitrogen/Creatinine [Mass ratio] 18.5 mg/mg 10-20 [facility] Work Phone: Laboratory - Hematology and Cell countson 07-08-2021 Erythrocyte distribution width (RBC) [Entitic vol] 47.6 fL 35.1-43.9 [facility] Work Phone: Erythrocyte distribution width (RBC) [Ratio] 14.6 % 11.6-14.6 [facility] Work Phone: Immature granulocytes/100 WBC (Bld) 0.400 % 0.0-0.9 [facility] Work Phone: Comment on above: IG% - Immature Granu locytes (promyelocytes, myelocytes and metamyelocytes) > 1% indicates that a LEFT SHIFT is Present. MCH (RBC) [Entitic mass] 29.3 pg 27.0-32.0 [facility] Work Phone: Nucleated RBC/100 WBC (Bld) [Ratio] 0 % 0-5 [facility] Work Phone: MCHC Auto (RBC) [Mass/Vol]on 07-08-2021 MCHC (RBC) [Mass/Vol] 32.9 g/dL 32-36 [facility] Work Phone: No Panel Informationon 07-08 Estimated GFR (MDRD) Amer 84 mL/min >60 [facility] Work Phone: Comment on above: GFR Calc Estimated GFR (MDRD) Non-Af Amer 69 mL/min >60 [facility] Work Phone: Comment on above: Non- GFR Calc Vitamin D 25-Hydroxy 88.3 ng/mL [facility] Work Phone: Comment on above: Vitamin D 25(OH) Sta tus Range Deficiency <20 ng/mL (50nmol/L) Insufficiency 20 - 30 ng/mL (50 - 75 nmol/L) Sufficiency 30 - 100 ng/mL (75 - 250 nmol/L) Toxicity >100 ng/mL (>250 nmol/L) Platelets bldon 07-08-2021 Platelets (Bld) [#/Vol] 159 10*3/uL 150-450 [facility] Work Phone: Serum or plasma albumin kim urement (mass/volume)on 07-08-2021 Albumin [Mass/Vol] 2.9 g/dL 3.2-5.0 [facility] Work Phone: Serum or plasma albumin/glob ulin mass ratioon 07-08-2021 Albumin/Globulin [Mass ratio] 0.6 {ratio} 0.9-2.4 [facility] Work Phone: Serum or plasma calcium kim urement (mass/volume)on 07-08-2021 Calcium [Mass/Vol] 9.0 mg/dL 8.5-10.1 [facility] Work Phone: Serum or plasma creatinine m easurement (mass/volume)on 07-08-2021 Creatinine [Mass/Vol] 0.87 mg/dL 0.55-1.02 [facility] Work Phone: Comment on above: The validity of the calculated GFR & GFRAA in patients over 70 years has not been determined. Clinical correlation is essential. Serum or plasma urea nitroge n measurement (mass/volume)on 07-08-2021 Urea nitrogen [Mass/Vol] 16 mg/dL 7-18 [facility] Work Phone: Thin prep Papanicolaou smear with manual screeningon 07-08-2021 Thin prep Papanicolaou smear with manual screening 32 U/L 15-37 [facility] Work Phone: Thin prep Papanicolaou smear with manual screening 9 5-15 [facility] Work Phone: No Panel Informationon 06-12 Vitamin D 25-Hydroxy 101.7 ng/mL [facility] Work Phone: Comment on above: Vitamin [...] Vitamin D test results. Office Visit: Diabetes [facility] 10-26-2016 Adolescent depression screening assessment Adolescent depression screening assessment Invalid Interpretation Code [facility] Work Phone: Documentation of current medications (procedure) Done Invalid Interpretation Code [facility] Work Phone: Fall risk assessment Fall risk assessment Invali d Interpretation Code [facility] Work Phone: Tobacco smoking status NHIS Never Invalid Interpretation Code [facility] Work Phone: Tobacco use CPHS Former smoker Invalid Interpretation Code [facility] Work Phone: Office Visit: Diabetes [facility] 11-05-2015 Breast Mammogram screening Normal Bilateral Invalid Interpretation Code [facility] Work Phone: Colonoscopy (procedure) Colonoscopy (procedure) Invalid Interpretation Code [facility] Work Phone: Culture, urine Bacteria identified Cx Nom (U) Negative [facility] Work Phone: Bacteria identified Cx Nom (U) Escherichia coli [facility] Work Phone: Laboratory - Microbiology an d Antimicrobial susceptibility Bacteria identified Cx Nom (Bld) Negative [facility] Work Phone: No Panel Information SARS-CoV-2 & FLU Antigen (Rapid) [facility] Work Phone: Vital Signs Date Time Vital Sign Value Performing Clinician Facility 10-11-2024 07:00-0400 SaO2% (BldA) [Mass fraction] 95 % Dr. Shayna Malhotra MD Work Phone: [facility] 10-11-2024 06:49-0400 Body temperature 97.6 [degF] Dr. Shayna Malhotra MD Work Phone: [facility] 10-11-2024 06:49-0400 Diastolic blood pressure 76 mm[Hg] Dr. Shayna Malhotra MD Work Phone: [facility] 10-11-2024 06:49-0400 Heart rate 106 /min Dr. Shayna Malhotra MD Work Phone: [facility] 10-11-2024 06:49-0400 Respiratory rate 20 /min Dr. Shayna Malhotra MD Work Phone: [facility] 10-11-2024 06:49-0400 Systolic blood pressure 153 mm[Hg] Dr. Shayna Malhotra MD Work Phone: [facility] 10-11-2024 06:00-0400 Body mass index (BMI) [Ratio] 49.6 kg/m2 Dr. Shayna Malhotra MD Work Phone: [facility] 10-11-2024 06:00-0400 Body weight 135.[address] Shayna Malhotra MD Work Phone: [facility] 10-10-2024 14:58-0400 Body height 165.[address] Shayna Malhotra MD Work Phone: [facility] 10-09-2024 20:55-0400 Diastolic blood pressure 57 mm[Hg] Dr. Shayna Malhotra MD Work Phone: [facility] 10-09-2024 20:55-0400 Heart rate 102 /min Dr. Shayna Malhotra MD Work Phone: [facility] 10-09-2024 20:55-0400 Respiratory rate 20 /min Dr. Shayna Malhotra MD Work Phone: [facility] 10-09-2024 20:55-0400 SaO2% (BldA) [Mass fraction] 98 % Dr. Shayna Malhotra MD Work Phone: [facility] 10-09-2024 20:55-0400 Systolic blood pressure 121 mm[Hg] Dr. Shayna Malohtra MD Work Phone: [facility] 10-09-2024 16:55-0400 Body height 165.[address] Shayna Malhotra MD Work Phone: [facility] 10-09-2024 16:55-0400 Body mass index (BMI) [Ratio] 49.1 kg/m2 Dr. Shayna Malhotra MD Work Phone: [facility] 10-09-2024 16:55-0400 Body temperature 97.8 [degF] Dr. Shayna Malhotra MD Work Phone: [facility] 10-09-2024 16:55-0400 Body weight [address] Shayna Malhotra MD Work Phone: [facility] 07-04-2024 13:06-0500 Body mass index (BMI) [Ratio] 49.9 kg/m2 Dr. Shayna Malhotra MD Work Phone: [facility] 07-04-2024 13:06-0500 Body temperature 97.8 [degF] Dr. Shayna Malhotra MD Work Phone: [facility] 07-04-2024 13:06-0500 Body weight 136.[address] Shayna Malhotra MD Work Phone: [facility] 07-04-2024 13:06-0500 Diastolic blood pressure 80 mm[Hg] Dr. Shayna Malhotra MD Work Phone: [facility] 07-04-2024 13:06-0500 Heart rate 107 /min Dr. Shayna Malhotra MD Work Phone: [facility] 07-04-2024 13:06-0500 Respiratory rate 16 /min Dr. Shayna Malhotra MD Work Phone: [facility] 07-04-2024 13:06-0500 SaO2% (BldA) [Mass fraction] 94 % Dr. Shayna Malhotra MD Work Phone: [facility] 07-04-2024 13:06-0500 Systolic blood pressure 142 mm[Hg] Dr. Shayna Malhotra MD Work Phone: [facility] 01-09-2023 19:06-0400 Body temperature 99.5 [degF] Dr. Shayna Malhotra Work Phone: [facility] 01-09-2023 19:06-0400 Heart rate 115 /min Dr. Shayna Malhotra Work Phone: [facility] 01-09-2023 19:06-0400 Respiratory rate 16 /min Dr. Shayna Malhotra Work Phone: [facility] 01-09-2023 19:06-0400 SaO2% (BldA) [Mass fraction] 95 % Dr. Shayna Malhotra Work Phone: [facility] 01-09-2023 17:53-0400 Diastolic blood pressure 89 mm[Hg] Dr. Shayna Malhotra Work Phone: [facility] 01-09-2023 17:53-0400 Systolic blood pressure 166 mm[Hg] Dr. Shayna Malhotra Work Phone: [facility] 01-09-2023 17:15-0400 Body height 165.[address] Shayna Malhotra Work Phone: [facility] 01-09-2023 17:15-0400 Body mass index (BMI) [Ratio] 51 kg/m2 Dr. Shayna Malhotra Work Phone: [facility] 01-09-2023 17:15-0400 Body weight 139.[address] Shayna Malhotra Work Phone: [facility] 11-24-2022 13:42-0400 Body mass index (BMI) [Ratio] 51.4 kg/m2 Dr. Shayna Malhotra Work Phone: [facility] 11-24-2022 13:42-0400 Body temperature 97.9 [degF] Dr. Shayna Malhotra Work Phone: [facility] 11-24-2022 13:42-0400 Body weight 140.[address] Shayna Malhotra Work Phone: [facility] 11-24-2022 13:42-0400 Diastolic blood pressure 67 mm[Hg] Dr. Shayna Malhotra Work Phone: [facility] 11-24-2022 13:42-0400 Heart rate 112 /min Dr. Shayna Malhotra Work Phone: [facility] 11-24-2022 13:42-0400 Respiratory rate 20 /min Dr. Shayna Malhotra Work Phone: [facility] 11-24-2022 13:42-0400 SaO2% (BldA) [Mass fraction] 92 % Dr. Shayna Malhotra Work Phone: [facility] 11-24-2022 13:42-0400 Systolic blood pressure 125 mm[Hg] Dr. Shayna Malhotra Work Phone: [facility] 05-06-2022 16:07-0500 Body height 165.[address] Shayna Malhotra Work Phone: [facility] 05-06-2022 16:07-0500 Body mass index (BMI) [Ratio] 49.4 kg/m2 Dr. Shayna Malhotra Work Phone: [facility] 05-06-2022 16:07-0500 Body temperature 98.6 [degF] Dr. Shayna Malhotra Work Phone: [facility] 05-06-2022 16:07-0500 Body weight 134.[address] Shayna Malhotra Work Phone: [facility] 05-06-2022 16:07-0500 Diastolic blood pressure 91 mm[Hg] Dr. Shayna Malhotra Work Phone: [facility] 05-06-2022 16:07-0500 Heart rate 118 /min Dr. Shayna Malhotra Work Phone: [facility] 05-06-2022 16:07-0500 Respiratory rate 18 /min Dr. Shayna Malhotra Work Phone: [facility] 05-06-2022 16:07-0500 SaO2% (BldA) [Mass fraction] 96 % Dr. Shayna Malhotra Work Phone: [facility] 05-06-2022 16:07-0500 Systolic blood pressure 167 mm[Hg] Dr. Shayna Malhotra Work Phone: [facility] 11-24-2021 16:06-0400 Heart rate 100 /min Dr. Shayna Malhotra Work Phone: [facility] Work Phone: 11-24-2021 16:04-0400 Body temperature 98.4 [degF] Dr. Shayna Malhotra Work Phone: [facility] Work Phone: 11-24-2021 16:04-0400 Diastolic blood pressure 82 mm[Hg] Dr. Shayna Malhotra Work Phone: [facility] Work Phone: 11-24-2021 16:04-0400 Respiratory rate 17 /min Dr. Shayna Malhotra Work Phone: [facility] Work Phone: 11-24-2021 16:04-0400 SaO2% (BldA) [Mass fraction] 95 % Dr. Shayna Malhotra Work Phone: [facility] Work Phone: 11-24-2021 16:04-0400 Systolic blood pressure 147 mm[Hg] Dr. Shayna Malhotra Work Phone: [facility] Work Phone: 11-24-2021 08:43-0400 Body temperature 98 [degF] Dr. Shayna Malhotra Work Phone: [facility] Work Phone: 11-24-2021 08:43-0400 Diastolic blood pressure 61 mm[Hg] Dr. Shayna Malhotra Work Phone: [facility] Work Phone: 11-24-2021 08:43-0400 Heart rate 94 /min Dr. Shayna Malhotra Work Phone: [facility] Work Phone: 11-24-2021 08:43-0400 Respiratory rate 15 /min Dr. Shayna Malhotra Work Phone: [facility] Work Phone: 11-24-2021 08:43-0400 SaO2% (BldA) [Mass fraction] 95 % Dr. Shayna Malhotra Work Phone: [facility] Work Phone: 11-24-2021 08:43-0400 Systolic blood pressure 113 mm[Hg] Dr. Shayna Malhotra Work Phone: [facility] Work Phone: 11-24-2021 06:00-0400 Body weight 141.[address] Shayna Malhotra Work Phone: [facility] Work Phone: 11-23-2021 09:21-0400 Body height 165.[address] Shayna Malhotra Work Phone: [facility] Work Phone: 11-22-2021 17:49-0400 Body height 165.[address] Shayna Malhotra Work Phone: [facility] Work Phone: 11-22-2021 17:49-0400 Body mass index (BMI) [Ratio] 51.5 kg/m2 Dr. Shayna Malhotra Work Phone: [facility] Work Phone: 11-22-2021 17:49-0400 Body weight 140.[address] Shayna Malhotra Work Phone: [facility] Work Phone: 11-22-2021 17:05-0400 Body temperature 98.9 [degF] Dr. Shayna Malhotra Work Phone: [facility] Work Phone: 11-22-2021 17:05-0400 Diastolic blood pressure 78 mm[Hg] Dr. Shayna Malhotra Work Phone: [facility] Work Phone: 11-22-2021 17:05-0400 Heart rate 120 /min Dr. Shayna Malhotra Work Phone: [facility] Work Phone: 11-22-2021 17:05-0400 Respiratory rate 28 /min Dr. Shayna Malhotra Work Phone: [facility] Work Phone: 11-22-2021 17:05-0400 SaO2% (BldA) [Mass fraction] 96 % Dr. Shayna Malhotra Work Phone: [facility] Work Phone: 11-22-2021 17:05-0400 Systolic blood pressure 119 mm[Hg] Dr. Shayna Malhotra Work Phone: [facility] Work Phone: 10-02-2021 12:46-0400 Body height 165.1 cm Jennifer Cuevas MD Work Phone: [facility] 10-02-2021 12:46-0400 Body temperature 97.39 [degF] Jennifer Cuevas MD Work Phone: [facility] 10-02-2021 12:46-0400 Body weight 136.53 kg Jennifer Cuevas MD Work Phone: [facility] 10-02-2021 12:46-0400 Diastolic blood pressure 85 mm[Hg] Jennifer Cuevas MD Work Phone: [facility] 10-02-2021 12:46-0400 Heart rate 103 /min Jennifer Cuevas MD Work Phone: [facility] 10-02-2021 12:46-0400 Respiratory rate 20 /min Jennifer Cuevas MD Work Phone: [facility] 10-02-2021 12:46-0400 SaO2% (BldA) [Mass fraction] 98 % Jennifer Cuevas MD Work Phone: [facility] 10-02-2021 12:46-0400 Systolic blood pressure 152 mm[Hg] Jennifer Cuevas MD Work Phone: [facility] 09-22-2021 09:30-0400 Body temperature 98.4 [degF] Dr. Shayna Malhotra Work Phone: [facility] Work Phone: 09-22-2021 09:30-0400 Diastolic blood pressure 87 mm[Hg] Dr. Shayna Malhotra Work Phone: [facility] Work Phone: 09-22-2021 09:30-0400 Heart rate 85 /min Dr. Shayna Malhotra Work Phone: [facility] Work Phone: 09-22-2021 09:30-0400 Respiratory rate 17 /min Dr. Shayna Malhotra Work Phone: [facility] Work Phone: 09-22-2021 09:30-0400 SaO2% (BldA) [Mass fraction] 94 % Dr. Shayna Malhotra Work Phone: [facility] Work Phone: 09-22-2021 09:30-0400 Systolic blood pressure 151 mm[Hg] Dr. Shayna Malhotra Work Phone: [facility] Work Phone: 09-20-2021 13:57-0400 Body height 166.[address] Shayna Malhotra Work Phone: [facility] Work Phone: 09-20-2021 13:57-0400 Body weight 137.[address] Shayna Malhotra Work Phone: [facility] Work Phone: 09-20-2021 12:38-0400 Body mass index (BMI) [Ratio] 49.6 kg/m2 Dr. Shayna Malhotra Work Phone: [facility] Work Phone: 09-20-2021 12:06-0400 Body temperature 98 [degF] Dr. Shayna Malhotra Work Phone: [facility] Work Phone: 09-20-2021 12:06-0400 Diastolic blood pressure 71 mm[Hg] Dr. Shayna Malhotra Work Phone: [facility] Work Phone: 09-20-2021 12:06-0400 Heart rate 101 /min Dr. Shayna Malhotra Work Phone: [facility] Work Phone: 09-20-2021 12:06-0400 Respiratory rate 16 /min Dr. Shayna Malhotra Work Phone: [facility] Work Phone: 09-20-2021 12:06-0400 SaO2% (BldA) [Mass fraction] 97 % Dr. Shayna Malhotra Work Phone: [facility] Work Phone: 09-20-2021 12:06-0400 Systolic blood pressure 163 mm[Hg] Dr. Shayna Malhotra Work Phone: [facility] Work Phone: 09-20-2021 07:17-0400 Body height 165.[address] Shayna Malhotra Work Phone: [facility] Work Phone: 09-20-2021 07:17-0400 Body mass index (BMI) [Ratio] 52.5 kg/m2 Dr. Shayna Malhotra Work Phone: [facility] Work Phone: 09-20-2021 07:17-0400 Body weight 143.[address] Shayna Malhotra Work Phone: [facility] Work Phone: 09-01-2021 15:00-0400 Body height 165.1 cm Pst 1 [facility] 09-01-2021 15:00-0400 Body temperature 97.5 [degF] Pst 1 [facility] 09-01-2021 15:00-0400 Body weight 128.82 kg Pst 1 [facility] 09-01-2021 15:00-0400 Diastolic blood pressure 71 mm[Hg] Pst 1 [facility] 09-01-2021 15:00-0400 Heart rate 97 /min Pst 1 [facility] 09-01-2021 15:00-0400 Respiratory rate 18 /min Pst 1 [facility] 09-01-2021 15:00-0400 SaO2% (BldA) [Mass fraction] 97 % Pst 1 [facility] 09-01-2021 15:00-0400 Systolic blood pressure 127 mm[Hg] Pst 1 [facility] 08-11-2021 09:26-0500 Body mass index (BMI) [Ratio] 50.9 kg/m2 Dr. Shayna Malhotra Work Phone: [facility] Work Phone: 08-11-2021 09:26-0500 Body temperature 98.2 [degF] Dr. Shayna Malhotra Work Phone: [facility] Work Phone: 08-11-2021 09:26-0500 Body weight 138.[address] Shayna Malhotra Work Phone: [facility] Work Phone: 08-11-2021 09:26-0500 Diastolic blood pressure 83 mm[Hg] Dr. Shayna Malhotra Work Phone: [facility] Work Phone: 08-11-2021 09:26-0500 Heart rate 114 /min Dr. Shayna Malhotra Work Phone: [facility] Work Phone: 08-11-2021 09:26-0500 Respiratory rate 16 /min Dr. Shayna Malhotra Work Phone: [facility] Work Phone: 08-11-2021 09:26-0500 SaO2% (BldA) [Mass fraction] 96 % Dr. Shayna Malhotra Work Phone: [facility] Work Phone: 08-11-2021 09:26-0500 Systolic blood pressure 151 mm[Hg] Dr. Shayna Malhotra Work Phone: [facility] Work Phone: 08-11-2021 08:26-0500 Body mass index (BMI) [Ratio] 50.9 kg/m2 Dr. Shayna Malhotra Work Phone: [facility] Work Phone: 08-11-2021 08:26-0500 Body temperature 98.2 [degF] Dr. Shayna Malhotra Work Phone: [facility] Work Phone: 08-11-2021 08:26-0500 Body weight 138.[address] Shayna Malhotra Work Phone: [facility] Work Phone: 08-11-2021 08:26-0500 Diastolic blood pressure 83 mm[Hg] Dr. Shayna Malhotra Work Phone: [facility] Work Phone: 08-11-2021 08:26-0500 Heart rate 114 /min Dr. Shayna Malhotra Work Phone: [facility] Work Phone: 08-11-2021 08:26-0500 Respiratory rate 16 /min Dr. Shayna Malhotra Work Phone: [facility] Work Phone: 08-11-2021 08:26-0500 SaO2% (BldA) [Mass fraction] 96 % Dr. Shayna Malhotra Work Phone: [facility] Work Phone: 08-11-2021 08:26-0500 Systolic blood pressure 151 mm[Hg] Dr. Shayna Malhotra Work Phone: [facility] Work Phone: 07-30-2021 14:36-0500 Body mass index (BMI) [Ratio] 50.8 kg/m2 Dr. Shayna Malhotra Work Phone: [facility] Work Phone: 07-30-2021 14:36-0500 Body temperature 98.6 [degF] Dr. Shayna Malhotra Work Phone: [facility] Work Phone: 07-30-2021 14:36-0500 Body weight 138.[address] Shayna Malhotra Work Phone: [facility] Work Phone: 07-30-2021 14:36-0500 Heart rate 106 /min Dr. Shayna Malhotra Work Phone: [facility] Work Phone: 07-30-2021 14:36-0500 Respiratory rate 15 /min Dr. Shayna Malhotra Work Phone: [facility] Work Phone: 07-30-2021 13:36-0500 Body mass index (BMI) [Ratio] 50.8 kg/m2 Dr. Shayna Malhotra Work Phone: [facility] Work Phone: 07-30-2021 13:36-0500 Body temperature 98.6 [degF] Dr. Shayna Malhotra Work Phone: [facility] Work Phone: 07-30-2021 13:36-0500 Body weight 138.[address] Shayna Malhotra Work Phone: [facility] Work Phone: 07-30-2021 13:36-0500 Heart rate 106 /min Dr. Shayna Malhotra Work Phone: [facility] Work Phone: 07-30-2021 13:36-0500 Respiratory rate 15 /min Dr. Shayna Malhotra Work Phone: [facility] Work Phone: 07-26-2021 12:28-0500 Diastolic blood pressure 72 mm[Hg] Dr. Shayna Malhotra Work Phone: [facility] Work Phone: 07-26-2021 12:28-0500 Heart rate 98 /min Dr. Shayna Malhotra Work Phone: [facility] Work Phone: 07-26-2021 12:28-0500 Respiratory rate 23 /min Dr. Shayna Malhotra Work Phone: [facility] Work Phone: 07-26-2021 12:28-0500 SaO2% (BldA) [Mass fraction] 99 % Dr. Shayna Malhotra Work Phone: [facility] Work Phone: 07-26-2021 12:28-0500 Systolic blood pressure 140 mm[Hg] Dr. Shayna Malhotra Work Phone: [facility] Work Phone: 07-26-2021 11:28-0500 Diastolic blood pressure 72 mm[Hg] Dr. Shayna Malhotra Work Phone: [facility] Work Phone: 07-26-2021 11:28-0500 Heart rate 98 /min Dr. Shayna Malhotra Work Phone: [facility] Work Phone: 07-26-2021 11:28-0500 Respiratory rate 23 /min Dr. Shayna Malhotra Work Phone: [facility] Work Phone: 07-26-2021 11:28-0500 SaO2% (BldA) [Mass fraction] 99 % Dr. Shayna Malhotra Work Phone: [facility] Work Phone: 07-26-2021 11:28-0500 Systolic blood pressure 140 mm[Hg] Dr. Shayna Malhotra Work Phone: [facility] Work Phone: 07-26-2021 09:16-0500 Body mass index (BMI) [Ratio] 52.2 kg/m2 Dr. Shayna Malhotra Work Phone: [facility] Work Phone: 07-26-2021 09:16-0500 Body temperature 97.2 [degF] Dr. Shayna Malhotra Work Phone: [facility] Work Phone: 07-26-2021 09:16-0500 Body weight 142.[address] Shayna Malhotra Work Phone: [facility] Work Phone: 07-26-2021 08:16-0500 Body mass index (BMI) [Ratio] 52.2 kg/m2 Dr. Shayna Malhotra Work Phone: [facility] Work Phone: 07-26-2021 08:16-0500 Body temperature 97.2 [degF] Dr. Shayna Malhotra Work Phone: [facility] Work Phone: 07-26-2021 08:16-0500 Body weight 142.[address] Shayna Malhotra Work Phone: [facility] Work Phone: 10-26-2016 15:36-0400 BMI (Body Mass Index) 41.6 kg/m2 Sena Cox NP [facility] Work Phone: 10-26-2016 15:36-0400 BP Diastolic 97 mm[Hg] Sena Cox NP [facility] Work Phone: 10-26-2016 15:36-0400 BP Systolic 155 mm[Hg] Sena Cox NP [facility] Work Phone: 10-26-2016 15:36-0400 BSA (Body Surface Area) 2.12 m2 Sena Cox NP [facility] Work Phone: 10-26-2016 15:36-0400 Height 162.56 cm Sena Brooke ACEVEDO [facility] Work Phone: 10-26-2016 15:36-0400 Pulse (Heart Rate) 101 /min Sena Cox NP [facility] Work Phone: 10-26-2016 15:36-0400 Pulse Oximetry 97 % Sena Cox NP [facility] Work Phone: 10-26-2016 15:36-0400 Respiratory Rate 16 /min Sena Cox NP [facility] Work Phone: 10-26-2016 15:36-0400 Weight 109.95 kg Senahailey Cox NP [facility] Work Phone: Encounters Encounter Date Encounter Type Care Provider Facility Start: 11-01-2024 ambulatory Sahyna Malhotra Facility :[facility] Start: 10-30-2024 ambulatory Shayna Malhotra Facility :[facility] Start: 10-25-2024 ambulatory Shaynadesi Malhotra Facility :[facility] Start: 10-11-2024 End: 10-11-2024 ambulatory Shayna Marya Facility:[facility] Start: 10-10-2024 Non-patient / Non-visit Dr. Tyrell Page MD -[facility] Work Phone: Start: 10-09-2024 ambulatory Shayna Malhotra Facility :[facility] Start: 10-09-2024 End: 10-11-2024 Evaluation and management of inpatient Dr. Missael Hernandez DO -Medical Surgical 3 Work Phone: Start: 10-09-2024 Registered Referred [facility] Work Phone: Start: 10-08-2024 End: 10-09-2024 ambulatory Shayna ROSA Facility:[facility] Start: 07-09-2024 ambulatory Shayna ROSA Faci lity:[facility] Start: 07-09-2024 Registered Referred [facility] Work Phone: Start: 07-04-2024 End: 07-04-[address] Shayna Malhotra MD -[facility] Work Phone: Start: 07-04-2024 End: 07-04-2024 ambulatory Shayna Malhotra Facility:[facility] Start: 06-22-2024 ambulatory Shayna Malhotra Facility :[facility] Start: 05-28-2024 End: 05-28-2024 ambulatory Shayna Malhotra Facility:[facility] Start: 04-09-2024 End: 04-09-2024 ambulatory Shayna ROSA Facility:[facility] Start: 01-09-2024 ambulatory Shaynadesi Malhotra O[facility] Faci lity:[facility] Start: 07-08-2023 End: 07-08-2023 ambulatory [facility] Work Phone: Start: 07-08-2023 End: 07-08-2023 Departed Referred [facility] Work Phone: Start: 04-08-2023 End: 04-08-2023 Departed Referred [facility] Work Phone: Start: 01-09-2023 End: 01-09-2023 Emergency department patient visit Dr. Shayna Malhotra Work Phone: [facility] Work Phone: Start: 11-24-2022 End: 11-24-[address] Shayna Malhotra Work Phone: [facility] Work Phone: Start: 10-13-2022 End: 10-13-[address] Shayna Malhotra Work Phone: [facility] Work Phone: Start: 08-12-2022 End: 08-12-[address] Shayna Malhotra Work Phone: [facility] Work Phone: Start: 08-12-2022 End: 08-12-[address] Shayna Malhotra Work Phone: [facility] Start: 07-13-2022 End: 07-13-[address] Shayna Malhotra Work Phone: [facility] Work Phone: Start: 07-13-2022 End: 07-13-[address] Shayna Malhotra Work Phone: [facility] Start: 06-08-2022 End: 06-08-[address] Shayna Malhotra Work Phone: [facility] Work Phone: Start: 06-08-2022 End: 06-08-[address] Shayna Malhotra Work Phone: [facility] Start: 05-06-2022 End: 05-06-[address] Shayna Malhotra Work Phone: [facility] Start: 04-13-2022 End: 04-13-2022 ambulatory [facility] Work Phone: Start: 04-13-2022 End: 04-13-2022 Departed Referred [facility] [place] Start: 01-01-2022 End: 01-01-[address] Shayna Malhotra Work Phone: [facility] 300 Start: 12-11-[address] Shayna Malhotra Work Phone: [facility] Start: 12-01-[address] Shayna Malhotra Work Phone: [facility] 100/200 Start: 11-27-[address] Shayna Malhotra Work Phone: [facility] 100/200 Start: 11-24-2021 Non-patient / Non-visit Dr. Maryanne Malhotra Work Phone: [facility] Start: 11-23-2021 Non-patient / Non-visit Dr. Maryanne Malhotra Work Phone: [facility] Start: 11-23-2021 End: 11-24-2021 Non-patient / Non-visit Dr. Shayna Malhotra Work Phone: [facility] Start: 11-22-2021 Non-patient / Non-visit Dr. Maryanne Malhotra Work Phone: [facility] Start: 11-22-2021 End: 11-24-2021 Evaluation and management of inpatient Dr. Shayna Malhotra Work Phone: [facility]Intensive [facility] Unit Start: 10-27-2021 End: 10-27-[address] Shayna Malhotra Work Phone: [facility] Start: 10-13-2021 End: 10-13-[address] Shayna Malhotra Work Phone: [facility] [place] [facility] Start: 10-13-[address] Shayna Malhotra Work Phone: [facility] Start: 10-02-2021 End: 10-02-2021 ambulatory Jennifer Cuevas MD Work Phone: [facility] Gynecology Oncology Comment on above: Endometrial cancer ( HCC) (Primary Dx) Start: 10-02-2021 End: 10-02-2021 Patient encounter procedure Jennifer Cuevas MD Work Phone: [facility] Start: 09-22-2021 Non-patient / Non-visit Dr. Maryanne Malhotra Work Phone: [facility] Start: 09-21-2021 Telephone encounter Jennifer prasad MD Work Phone: [facility] Gynecology Oncology Comment on above: Appointment Cancelle d Start: 09-21-2021 Non-patient / Non-visit Dr. Maryanne Malhotra Work Phone: [facility] Start: 09-20-2021 Non-patient / Non-visit Dr. Maryanne Malhotra Work Phone: [facility] Start: 09-20-2021 End: 09-22-2021 Evaluation and management of inpatient Dr. Shayna Malhotra Work Phone: [facility]-Medical Surgical 3 Start: 09-10-2021 Telephone encounter Taniya Balderas APRN.CNP Work Phone: [facility] Gynecology Oncology Comment on above: Results Start: 09-10-2021 End: 09-10-[address] Shayna Malhotra Work Phone: [facility] [place] Start: 09-10-[address] Shayna Malhotra Work Phone: [facility] [place] Start: 09-09-2021 Telephone encounter Jennifer prasad MD Work Phone: [facility] Gynecology Oncology Comment on above: Patient Update Start: 09-01-2021 End: 09-01-2021 Admission to [address] Start: 09-01-2021 End: 09-01-2021 ambulatory Pst [...] encounter procedure Dr. Shayna Malhotra Work Phone: [facility] Start: 08-07-2021 End: 08-07-[address] [facility] Start: 07-30-[address] Shayna Malhotra Work Phone: [facility] On[facility] Start: 07-30-2021 End: 07-30-[address] Shayna Malhotra Work Phone: [facility] Start: 07-26-2021 End: 07-26-2021 Emergency department patient visit Dr. Shayna Malhotra Work Phone: [facility]-Emergency Department Start: 07-14-[address] Shayna Malhotra Work Phone: [facility] Start: 07-08-[address] Shayna Malhotra Work Phone: [facility] Start: 06-12-[address] Shayna Malhotra Work Phone: [facility] Procedures Date Procedure [...] Speci men Type: BLOOD SPECIMEN Ordering Facility: [facility] Address: [address] [place], [place] [id number] Performed By: #### T [id number] #### [facility] [place] [id number] [address] [place] [address] [place] Start: 08-11-2021 Plain chest [...] Activity Detail Author Start: 10-11-2024 Patient discharge [facility] Start: 10-10-2024 [facility] Start: 10-10-2024 Consultation [facility] Start: 10-10-2024 Patient referral to dietitian [facility] Start: 10-09-2024 Following clinical pathway protocol [facility] Start: 10-09-2024 Assessment of risk o f venous thromboembolism [facility] Start: 10-09-2024 Care regimes management [facility] Start: 10-09-2024 Incentive spirometry [facility] Start: 10-09-2024 Insertion of cathete r into peripheral vein [facility] Start: 10-09-2024 Measuring intake and output [facility] Start: 10-09-2024 Notification of physician [facility] Start: 10-09-2024 Oxygen therapy [facility] Start: 10-09-2024 Providing care accor ding to standard [facility] Start: 10-09-2024 Provision of activit y privileges [facility] Start: 10-09-2024 Referral to occupati onal therapist [facility] Start: 10-09-2024 Referral to service [facility] Start: 10-09-2024 Seizure precautions [facility] Start: 10-09-2024 End: 10-09-2024 [facility] Start: 10-09-2024 MR Lower extremity W O contrast [facility] Start: 10-09-2024 MRI of lower extremity Extremi ty Lower without Contra [facility] Start: 10-09-2024 Verification routine [facility] Start: 10-09-2024 Admission procedure [facility] Start: 10-09-2024 Hospital admission, emergency, from emergency room, medical nature [facility] Start: 10-09-2024 End: 10-10-2024 [facility] Start: 10-09-2024 Thyroid stimulating hormone measurement [facility] Start: 10-09-2024 Consultation [facility] Start: 10-09-2024 Bacteria identified in Urine by Culture Urine Culture [facility] Start: 10-09-2024 Urine culture [facility] Start: 10-09-2024 Consultation [facility] Start: 10-09-2024 Patient referral to dietitian [facility] Start: 09-07-2024 DIABETES SCREEN DIABETES SCREEN [facility] Start: 07-04-2024 Patient referral [facility] Work Phone: Start: 11-24-2022 Patient referral [facility] Work Phone: Start: 05-06-2022 Patient referral [facility] Work Phone: Start: 02-04-2022 Influenza vaccination INFLUENZ A (Season Ended) [facility] Start: 11-25-2021 [facility] Work Phone: Start: 11-24-2021 Patient discharge [facility] Work Phone: Start: 11-22-2021 Troponin I measurement [facility] Work Phone: Start: 11-22-2021 Verification routine [facility] Work Phone: Start: 11-22-2021 Patient referral to dietitian [facility] Work Phone: Start: 11-22-2021 Following clinical pathway protocol [facility] Work Phone: Start: 11-22-2021 Assessment of risk o f venous thromboembolism [facility] Work Phone: Start: 11-22-2021 Care regimes management [facility] Work Phone: Start: 11-22-2021 Catheterization of vein [facility] Work Phone: Start: 11-22-2021 Insertion of cathete r into peripheral vein [facility] Work Phone: Start: 11-22-2021 Measuring intake and output [facility] Work Phone: Start: 11-22-2021 Providing care accor ding to standard [facility] Work Phone: Start: 11-22-2021 Provision of activit y privileges [facility] Work Phone: Start: 11-22-2021 Referral to occupati onal therapist [facility] Work Phone: Start: 11-22-2021 Referral to service [facility] Work Phone: Start: 11-22-2021 [facility] Work Phone: Start: 11-22-2021 Viral nucleic acid assay [facility] Work Phone: Start: 11-22-2021 Admission procedure [facility] Work Phone: Start: 11-22-2021 [facility] Work Phone: Start: 11-22-2021 End: 11-23-2021 [facility] Work Phone: Start: 11-22-2021 End: 11-22-2021 Blood culture [facility] Work Phone: Start: 09-22-2021 Patient discharge [facility] Work Phone: Start: 09-20-2021 End: 09-21-2021 [facility] Work Phone: Start: 09-20-2021 Following clinical pathway protocol [facility] Work Phone: Start: 09-20-2021 Assessment of risk o f venous thromboembolism [facility] Work Phone: Start: 09-20-2021 Care regimes management [facility] Work Phone: Start: 09-20-2021 Elevation of affecte d extremity [facility] Work Phone: Start: 09-20-2021 Insertion of cathete r into peripheral vein [facility] Work Phone: Start: 09-20-2021 Notification of physician [facility] Work Phone: Start: 09-20-2021 Providing care accor ding to standard [facility] Work Phone: Start: 09-20-2021 Provision of activit y privileges [facility] Work Phone: Start: 09-20-2021 Referral to occupati onal therapist [facility] Work Phone: Start: 09-20-2021 Referral to service [facility] Work Phone: Start: 09-20-2021 Self-administration of medication [facility] Work Phone: Start: 09-20-2021 Admission procedure [facility] Work Phone: Start: 09-20-2021 Patient referral to dietitian [facility] Work Phone: Start: 09-01-2021 End: 11-01-2021 CBC panel - Blood by Automated count [facility] Work Phone: Comment on above: Expected: 09/01/2021 , Expires: 11/01/2021 Start: 09-01-2021 End: 11-01-[address] [facility] Work Phone: Comment on above: Expected: 09/01/2021 , Expires: 11/01/2021 Start: 09-01-2021 End: 11-01-2021 TYPE AND SCREEN,[address] [facility] Work Phone: Comment on above: Expected: 09/01/2021 , Expires: 11/01/2021 Start: 07-26-2021 Referral to oncologist [facility] Work Phone: Start: 06-06-2021 ADVANCE DIRECTIVE DISCUSSION ADVANCE DIRECTIVE DISCUSSION [facility] Start: 02-09-2021 LIPID SCREEN LIPID SCREEN [facility] Start: 02-04-2021 Influenza vaccination INFLUENZA (#1) [facility] Start: 03-01-2019 DIABETES SCREEN DIABETES SCREEN [facility] Start: 2017 BONE DENSITY BONE DENSITY [facility] Start: 2017 PNEUMOVAX AGE 65 AND OVER WITH 5YR LOOKBACK (#1) PNEUMOVAX AGE 65 AND OVER WITH 5YR LOOKBACK (#1) [facility] Start: 02-09-2017 Adult depression screening assessment DEPRESSION SCREENING [facility] Start: 02-09-2017 Mammography MAMMOGRAM [facility] Start: 12-09-2016 End: 12-09-2016 Appointment [facility] Work Phone: Start: 10-26-2016 End: 10-26-2016 Appointment Appointment [facility] Work Phone: Start: 10-26-2016 End: 10-26-2016 Appointment Appointment [facility] Work Phone: Start: 10-26-2016 End: 11-01-2016 *CMP Complete Metabolic Panel *CMP Complete Metabolic Panel [facility] Work Phone: Start: 10-26-2016 End: 11-01-2016 *Microalbumin, Creatine Ratio, rand urine *Microalbumin, Creatine Ratio, rand urine [facility] Work Phone: Start: 10-26-2016 End: 11-01-2016 HbA1c *HgA1C [facility] Work Phone: Start: 10-26-2016 End: 11-01-2016 Lipid panel [AGGREGATE] *Lipid Profile [facility] Work Phone: Start: 09-05-2011 PNEUMOCOCCAL: 65+ (2 - PCV) PNEUMOCOCCAL: 65+ (2 - PCV) [facility] Start: 2002 SHINGRIX VACCINE (1 of 2) SHINGRIX VACCINE (1 of 2) [facility] Start: 1997 COLOGUARD (FIT-DNA) COLOGUARD (FIT-D NA) [facility] Start: 1997 Colonoscopy COLONOSCOPY [facility] Start: 1997 COLORECTAL CANCER SCREENING COLORECTAL CANCER SCREENING [facility] Start: [address] COLONOGRAPHY [facility] Start: 1997 FECAL OCCULT BLOOD FECAL OCCULT BLOO D [facility] Start: 1997 SIGMOIDOSCOPY SIGMOIDOSCOPY [facility] Start: 12-28-1971 SHINGRIX VACCINE (1 of 2) SHINGRIX VACCINE (1 of 2) [facility] Start: 12-28-1971 Urine microalbumin profile DTAP,TDAP,TD (1 - Tdap) [facility] Start: 1957 COVID-19 VACCINE (#1) COVID-19 VACCI NE (#1) [facility] Start: 1957 COVID-19 VACCINE (1) COVID-19 VACCIN E (1) [facility] Amphetamines [Presen ce] in Urine by Screen method >1000 ng/mL [facility] Bacteria identified in Blood by Culture Blood Culture [facility] Work Phone: Bacteria identified in Urine by Culture Urine Culture [facility] Work Phone: Benzodiazepine measurement, urine [facility] Blood culture [facility] Work Phone: C reactive protein [Mass/volume] in Serum or Plasma [facility] Cancer Ag 125 [Units/volume] in Serum or Plasma [facility] Work Phone: Cocaine measurement, urine [facility] Erythrocyte sedimentation rate [facility] Ethanol [Mass/volume ] in Serum or Plasma [facility] fentaNYL [Presence] in Urine by Screen method [facility] Folate [Moles/volume ] in Serum or Plasma [facility] Hemoglobin A1c/Hemoglobin.total in Blood [facility] Magnesium measurement [facility] Methadone measuremen t, urine [facility] Patient Education [facility] Work Phone: Patient referral [facility] Work Phone: Phencyclidine [Prese nce] in Urine [facility] Troponin I measurement [facility] Work Phone: Urine cannabinoid measurement [facility] Urine culture [facility] Urine opiate measurement [facility] Immunizations Immunization Date Immunization Notes Care Provider Fa morteza 03-30-2016 influenza, injectabl e, quadrivalent, preservative free [facility] 03-30-2016 influenza, seasonal, injectable Dr. Shayna Malhotra Work Phone: [facility] 10-31-2012 influenza, injectabl e, quadrivalent, preservative free [facility] 10-31-2012 influenza, seasonal, injectable Dr. Shayna Malhotra Work Phone: [facility] 06-06-2012 pneumococcal polysaccharide vaccine, [address] Shayna Malhotra Work Phone: [facility] 09-04-2010 pneumococcal polysaccharide vaccine, [address] [place] [address] Work Phone: Payers Date Payer Category Payer Self-pay [id number] 2021 Medicare [id number] 2016 Unknown [id number] 2016 Unknown [id number] Unknown [id number] 2.16.8 [id number] Unknown [id number] 2.16.8 [id number] Unknown [id number] 2.16.8 [id number] Unknown [id number] 2.16.8 [id number] Unknown [id number] 2.16.8 [id number] Unknown [id number] 2.16.8 [id number] Unknown [id number] 2.16.8 [id number] Unknown [id number] 2.16.8 [id number] Unknown [id number] 2.16.8 [id number] Unknown [id number] 2.16.8 [id number] Unknown [id number] 2.16.8 [id number] Unknown [id number] 2.16.8 [id number] Unknown [id number] 2.16.8 [id number] Unknown [id number] 2.16.8 [id number] Unknown [id number] 2.16.8 [id number] Unknown [id number] 2.16.8 [id number] Social History Date Type Detail Facility Start: 07-29-2021 End: 10-09-2024 Tobacco smoking status NHIS Ex-smoker [facility] History of tobacco use Cigarette Smoker C [facility] Start: 07-29-2021 Cigarettes smoked current (pack per day) - Reported 0.5 [facility] Start: 07-29-2021 Tobacco use and exposure Smokeless tobacco non-user [facility] Start: 09-01-2021 End: 10-02-2021 Alcohol intake Current non-drinker of alcohol (finding) [facility] Start: 1950 Sex Assigned At Not on file C [facility] Start: 08-22-2021 End: 10-02-2021 Exposure to SARS-CoV-2 (event) Not sure [facility] Start: 09-20-2021 End: 01-09-2023 Tobacco smoking status AZIS Unknown if ever smoked [facility] Start: 08-02-2017 None [facility] Start: 08-02-2017 Alone [facility] Start: 08-02-2017 Non-smoker [facility] Start: 1950 Sex Assigned At Female [facility] Start: 10-09-2024 Sex Female (finding) [facility] Medical Equipment Procedure Code Equipment Code Equipment [...] Activity Abili ty With Assist of 2 [facility] Work Phone: 10-10-2024 Functional status Active Range of Motion [facility] Work Phone: 11-24-2021 Functional status Ambulates;Chair [facility] Work Phone: 09-22-2021 Functional status Ambulates [facility] Work Phone: 09-22-2021 Functional status Ambulates [facility] Work Phone: 09-21-2021 Functional status Tolerates Activity Well [facility] Work Phone: Mental Status Date Assessment Result Facility 10-11-2024 Cognitive function Voice/Name [facility] Work Phone: 10-10-2024 Cognitive function Cooperative;Anxious;Ta lkative [facility] Work Phone: 11-24-2021 Cognitive function Voice/Name [facility] Work Phone: 09-22-2021 Cognitive function Voice/Name [facility] Work Phone: 09-20-2021 Cognitive function Level Of Cons ciousness Awake;Alert;Appropriate;Follow s Commands;Drowsy [facility] Work Phone: Clinical Notes 07-29-2021 to 10-11-2024 Note Date & Type Note Facility 10-11-2024 Note [facility] Medical Records Department [address] [place] [address] Discharge Summary 10/11/24 1135 MR#: [id number] Acct: [id number] Name: VIDA NINA Rep #: [id number] : 1950 73 From: Tyrell Page MD PCP: Dr. Shayna Malhotra MD Status:DIS IN Location: [facility] [id number] Providers Date of Admission: 10/09/24 Date of [...] status: with other specified complication Diabetes mellitus intermediate accountant insulin use: with fci use Qualified Code(s): E11.69 - Type 2 diabetes mellitus with other specified complication; Z79.4 - oil heaterman (current) use of insulin Plan 73-year-old female [...] edema. No soft tissue gas. Will consult ship pilot for further opinion. PT and OT and [...] 72.1 H, Lymph % (Auto) 16.3 L, Morris % (Auto) 8.3, Eos % (Auto) 2.5, Baso % (more content not included)... [facility] 10-10-2024 Progress note Note Date/Time October 10, 2024 4:49pm [facility] Medical Records Department [address] [place] [address] Progress Note - Hospitalist 10/10/24 0739 MR#: [id number] Acct: [id number] Name: VIDA NINA Rep #:[id number] : 1950 73 From: Tyrell Resendez PCP: Dr. Shayna Malhotra MD Status:ADM IN Location: [place] [address]-1 Reason for Visit Reason for Visit: Diagnoses Type 2 diabetes mellitus with other specified complication (10/09/24) Morbid (severe) obesity due to excess calories (10/09/24) Bipolar disorder, unspecified (10/09/24) Neuralgia and neuritis, unspecified (10/09/24) Acute cystitis with hematuria (10/09/24) Very low level of personal hygiene (10/09/24) Body mass index [BMI] 45.0-49.9, adult (10/09/24) Other specified health status (10/09/24) detention (current) use of insulin (10/09/24) Objective Data [...] 72.1 H, Lymph % (Auto) 16.3 L, Morris % (Auto) 8.3, Eos % (Auto) 2.5, [...] Clarity Cloudy, Urine pH 5.0, Ur Specific [place] 1.020, Urine Protein 30 H, Urine Glucose [...] % (Auto) 65.4, Lymph % (Auto) 19.6, Morris % (Auto) 9.1, Eos % (Auto) 5.1 [...] arthritic changes. Soft tissue swelling. Reading Location: [facility] Lower Extremity CT 10/09/24 22:15 IMPRESSION: Lateral [...] Hernandez at 2:20 a.m. 10/10/2024 Reading Location: [facility] Physical Exam Narrative Seen and examined. [...] status: with other specified complication Diabetes mellitus fci insulin use: with intermediate accountant use Qualified Code(s): E11.69 - Type 2 diabetes mellitus with other specified complication; Z79.4 - detention (current) use of insulin PLAN: Plan 73-year-old [...] edema. No soft tissue gas. Will consult ship pilot for further opinion. PT and OT and [...] 72.1 H, Lymph % (Auto) 16.3 L, Morris % (Auto) 8.3, Eos % (Auto) 2.5, [...] Clarity Cloudy, Urine pH 5.0, Ur Specific [place] 1.020, Urine Protein 30 H, Urine Glucose [...] % (Auto) 65.4, Lymph % (Auto) 19.6, Morris % (Auto) 9.1, Eos % (Auto) 5.1 [...] 165 H Charges/Coding Visit Charges Inpatient E&M: 91125 Subs Hosp L2 10/10/24 1530 <Electronically signed [...] need inpatient psych unit facility transfer 10/10/24 5760<Electronically signed by Tyrell Page MD> Cosigner Signature (if applicable): cc: ~* Signed [facility] Work Phone: 1(565) 639-907105-07-2025 Progress note [facility] Medical Records Department [address] [place] [address] Progress Note - Hospitalist 10/10/24 0739 MR#: [id number] Acct: [id number] Name: VIDA NINA Rep #:[id number] : 1950 73 From: Tyrell Resendez PCP: Dr. Shayna Malhotra MD Status:ADM IN Location: [address] Reason for Visit Reason for Visit: Diagnoses Type 2 diabetes mellitus with other specified complication (10/09/24) Morbid (severe) obesity due to excess calories (10/09/24) Bipolar disorder, unspecified (10/09/24) Neuralgia and neuritis, unspecified (10/09/24) Acute cystitis with hematuria (10/09/24) Very low level of personal hygiene (10/09/24) Body mass index [BMI] 45.0-49.9, adult (10/09/24) Other specified health status (10/09/24) oil heaterman (current) use of insulin (10/09/24) Objective Data [...] 72.1 H, Lymph % (Auto) 16.3 L, Morris % (Auto) 8.3, Eos % (Auto) 2.5, [...] Clarity Cloudy, Urine pH 5.0, Ur Specific [place] 1.020, Urine Protein 30 H, Urine Glucose [...] % (Auto) 65.4, Lymph % (Auto) 19.6, Morris % (Auto) 9.1, Eos % (Auto) 5.1 [...] arthritic changes. Soft tissue swelling. Reading Location: [facility] Lower Extremity CT 10/09/24 22:15 IMPRESSION: Lateral [...] Hernandez at 2:20 a.m. 10/10/2024 Reading Location: [id number] Physical Exam Narrative Seen and examined. Patient [...] status: with other specified complication Diabetes mellitus intermediate accountant insulin use: with intermediate accountant use Qualified Code(s): E11.69 - Type 2 diabetes mellitus with other specified complication; Z79.4 - oil heaterman (current) use of insulin PLAN: Plan 73-year-old [...] edema. No soft tissue gas. Will consult ship pilot for further opinion. PT and OT and [...] 72.1 H, Lymph % (Auto) 16.3 L, Morris % (Auto) 8.3, Eos % (Auto) 2.5, [...] Clarity Cloudy, Urine pH 5.0, Ur Specific [place] 1.020, Urine Protein 30 H, Urine Glucose [...] % (Auto) 65.4, Lymph % (Auto) 19.6, Morris % (Auto) 9.1, Eos % (Auto) 5.1 [...] 165 H Charges/Coding Visit Charges Inpatient E&M: 05461 Subs Hosp L2 10/10/24 4879 Cosigner Signature (if applicable): CC: ~ Signed [...] Cosigner Signature (if applicable): cc: ~* Signed [facility]05-07-2025 History and physical note Author Missael Lomeli [facility] Note Date/Time October 10, 2024 6:53am [facility] Medical Records Department [address] [facility] [place] [address] H&P Exam - Hospitalist 10/09/242118 MR#: [id number] Acct: [id number] Name: VIDA NINA Rep #:[id number] : 1950 73 From: Missael Joiner DO PCP: Dr. 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 [facility] Medical History Obesity Anxiety Cancer Anxiety Diabetes [...] acetonide 0.1 % 1 applic topical Q12H NC N PRN Rash 09/20/21 Unknown History topical [...] D #0 grams 11/24/21 Unknown Rx powder ([facility]) quetiapine 100 mg tablet 300 [...] (Auto) 72.1 H, Lymph % (Auto) 16.3 L,Morris % (Auto) 8.3, Eos % (Auto) 2.5, [...] Clarity Cloudy, Urine pH 5.0, Ur Specific [place] 1.020, Urine Protein 30 H, Urine Glucose [...] changes. Soft tissue swelling. Reading Location: [facility] Imaging Services [address] [place] [address] [id number] Extremity Lower without Contra MR#: [id number] Acct: [id number] Name: VIDA NINA Rep #: [id number] : 1950 F 73 From: Saul Sanchez MD PCP: Dr. Shayna Malhotra MD Status: ADM IN Study: Extremity Lower without Contra Date of Exam: 10/09/24 Exam# [id number] Ordering Dr: Missael Hernandez DO PROCEDURE: EXTREMITY [...] Hernandez at 2:20 a.m. 10/10/2024 Reading Location: [facility] CC: Dr. Missael Hernandez DO; Dr. Shayna Malhotra MD ~ Medical Coding Technician: Signed Assessment & Plan Assessment/Plan (1) Acute cystitis with hematuria: (2) Neuropathic pain of foot: (3) Poor hygiene: (4) Unable to care for self: (5) Bipolar 1 disorder: (6) Morbid obesity with BMI of 45.0-49.9, adult: (7) DM2 (diabetes mellitus, type 2): QUALIFIERS: Diabetes mellitus complication status: with other specified complication Diabetes mellitus fci insulin use: with intermediate accountant use Qualified Code(s): E11.69 - Type 2 diabetes mellitus with other specified complication; Z79.4 - detention (current) use of insulin PLAN: Plan 1. Acute Cystitis; with microscopic hematuria in the setting of known frequent UTIs - Admit to general medical floor. Continue empiric IV ceftriaxone and await culture and sensitivity data. Give acetaminophen as needed for [id number]-[id number] (level 1- 5/10) pain or fever. Give [...] 75 minutes. Charges/Coding Visit Charges Inpatient E&M: 56689 Init Hosp L3 10/10/24 0653 <Electronically signed by Missael Hernandez DO> Cosigner Signature (if applicable): CC: Dr. Missael Hernandez DO; Dr. Shayna Malhotra MD~ Signed [facility] Work Phone: 1(296) 619-842105-07-2025 History and physical note [facility] Medical Records Department [address] [place] [address] H&P Exam - Hospitalist 10/09/242118 MR#: [id number] Acct: [id number] Name: VIDA NINA Rep #:[id number] : 1950 73 From: Missael Joiner DO PCP: Dr. 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 [facility] Medical History Obesity Anxiety Cancer Anxiety Diabetes [...] acetonide 0.1 % 1 applic topical Q12H NC N PRN Rash 09/20/21 Unknown History topical [...] D #0 grams 11/24/21 Unknown Rx powder ([facility]) quetiapine 100 mg tablet 300 [...] (Auto) 72.1 H, Lymph % (Auto) 16.3 L,Morris % (Auto) 8.3, Eos % (Auto) 2.5, [...] Clarity Cloudy, Urine pH 5.0, Ur Specific [place] 1.020, Urine Protein 30 H, Urine Glucose [...] changes. Soft tissue swelling. Reading [facility] [address] [place] [id number] Extremity Lower without Contra MR#: [id number] Acct: [id number] Name: VIDA NINA Rep #: [id number] : 1950 F 73 From: Saul Sanchez MD PCP: Dr. Shayna Malhotra MD Status: ADM IN Study: Extremity Lower without Contra Date of Exam: 10/09/24 Exam# [id number] Ordering Dr: Missael Hernandez DO PROCEDURE: EXTREMITY [...] Hernandez at 2:20 a.m. 10/10/2024 Reading Location: [facility] CC: Dr. Missael Hernandez, ; Dr. Shayna Malhotra MD ~ Medical Coding Technician: Signed Assessment & Plan Assessment/Plan (1) Acute cystitis with hematuria: (2) Neuropathic pain of foot: (3) Poor hygiene: (4) Unable to care for self: (5) Bipolar 1 disorder: (6) Morbid obesity with BMI of 45.0-49.9, adult: (7) DM2 (diabetes mellitus, type 2): QUALIFIERS: Diabetes mellitus complication status: with other specified complication Diabetes mellitus fci insulin use: with intermediate accountant use Qualified Code(s): E11.69 - Type 2 diabetes mellitus with other specified complication; Z79.4 - detention (current) use of insulin PLAN: Plan 1. Acute Cystitis; with microscopic hematuria in the setting of known frequent UTIs - Admit to general medical floor. Continue empiric IV ceftriaxone and await culture and sensitivity data. Give acetaminophen as needed for ctqe-sp-cieaonfd (level 1-5/10) pain or fever. Give oxycodone [...] patient Unable to [facility] after the recent incarceration of her [...] 75 minutes. Charges/Coding Visit Charges Inpatient E&M: 49062 Init Hosp L3 10/10/24 0653 Cosigner Signature (if applicable): CC: Dr. Missael Hernandez DO; Dr. Shayna Malhotra MD~ Signed [facility]05-07-2025 Radiology Diagnostic study note [facility] Imaging Services [address] [place] [address] Extremity Lower without Contra MR#: [id number] Acct: [id number] Name: VIDA NINA Rep #: [id number] : 1950 F 73 From: Daniel Sanchez MD PCP: Dr. Shayna Malhotra MD Status: ADM IN Study:Extremity Lower without Contra Date of Exam: 10/09/24 Exam# [id number] Ordering Dr: Missael Piña DO PROCEDURE: EXTREMITY [...] Hernandez at 2:20 a.m. 10/10/2024 Reading Location: [id number] CC: Dr. Missael Hernandez DO; Dr. Shayna Malhotra MD ~ Medical Coding Technician: Signed [facility]05-06-2025 Discharge summary Author Dany Richardson [facility] Note Date/Time October 09, 2024 9:22pm [facility] Medical Records Department [address] [place] [address] Emergency Department Summary 10/09/24 MR#: [id number] Acct: [id number] Name: VIDA NINA Rep #:[id number] : 1950 73 From: Dany Richardson MD PCP: Dr. Shayna Malhotra MD Status:REG ER Location: ED HPI History of Present Illness Chief Complaint: Lower Extremity Injury Narrative Narrative: 73-year-old female states that she had pins placed in her left foot approximately 15 years ago Gratis after breaking her heel. She is currentlyin [facility]. She states for the last 2 weeks she has been having increasing foot pain. She states that on Tuesday, probably of the last week, she had x-[facility]btained at the [facility]. She went and saw Dr. hSayna Malhotra on Tuesday, but he did not have the x-ray results. She states that she is having a lot of pain in her left heel that is worse with weightbearing and walking and palpation. She states that it feels as if she is having a baby out of her left heel. [facility] Medical History Obesity Anxiety Cancer Anxiety [...] acetonide 0.1 % 1 applic topical Q12H NC N PRN Rash 09/20/21 Unknown History topical [...] doctor blood sugar diagnostic (FreeStyle 11/23/21 Unknown Ca story Lite Strips) blood-glucose meter (FreeStyle 11/23/21 Unknown Histo ry Lite Meter kit) lancets 28 gauge (FreeStyle 11/23/21 Unknown History Lancets) nystatin 100,000 unit/gram topical 1 applic topical TI D #0 grams 11/24/21 Unknown Rx powder ([facility]) quetiapine 100 mg tablet 300 [...] nonspecific foot pain. She was given 1 Rydal for analgesia here, and x- rays were [...] plan was to discharge her back to [facility], however I was approached by the RN, [...] 72.1 H Lymph % (Auto) 16.3 L Morris % (Auto) 8.3 Eos % (Auto) 2.5 [...] Clarity Cloudy Urine pH 5.0 Ur Specific [place] 1.020 Urine Protein 30 H Urine Glucose [...] tract infection) Disposition Disposition: Acute Care Hospital [facility] What to do if you have Problems For any increased pain, shortness of breath, bleeding, nausea or vomiting, chestpain, or any unexpected problems, contact your Primary Care Provider. Call [facility] ([phone]) or report to the closest Emergency Room. Call 911 if necessary. 10/09/242121 <Electronically signed by Dany Richardson MD> Cosigner Signature (if applicable): CC: Dr. Shayna Malhotra MD ~ Signed [facility] Work Phone: 1(428) 479-820505-06-2025 Discharge summary [facility] Medical Records Department [address] [place] [address] Emergency Department Summary 10/09/24 MR#: [id number] Acct: [id number] Name: VIDA NINA Rep #:[id number] : 1950 73 From: Dany Richardson MD PCP: Dr. Shayna Malhotra MD Status:REG ER Location: ED HPI History of Present Illness Chief Complaint: Lower Extremity Injury Narrative Narrative: 73-year-old female states that she had pins placed in her left foot approximately 15 years ago Gratis after breaking her heel. She is currentlyin [facility]. She states for the last 2 weeks she has been having increasing foot pain. She states that on Tuesday, probably of the last week, she had x-raysobtained at the [facility]. She went and saw Dr. Shayna Malhotra on Tuesday, but he did not have thex-ray results. She states that she is having a lot of pain in her left heel that is worse with weightbearing and walking and palpation. She states that it feels as if she is having a baby out of her left heel. [facility] Medical History Obesity Anxiety Cancer Anxiety [...] acetonide 0.1 % 1 applic topical Q12H NC N PRN Rash 09/20/21 Unknown History topical [...] D #0 grams 11/24/21 Unknown Rx powder ([facility]) quetiapine 100 mg tablet 300 [...] nonspecific foot pain. She was given 1 Rydal for analgesia here, and x-rays were obtained of the left footin 3 views. On my independent interpretation of her x-rays, there are postsurgical changes including hardware,but no evidence of a periprosthetic fracture, no noted loosening of hardware. There are arthritic changes as well. I reviewed the radiology report which confirms my independent interpretation. Initially my plan was to discharge her back to [facility], however I was approached by the RN, [...] 72.1 H Lymph % (Auto) 16.3 L Morris % (Auto) 8.3 Eos % (Auto) 2.5 [...] Clarity Cloudy Urine pH 5.0 Ur Specific [place] 1.020 Urine Protein 30 H Urine Glucose [...] self, UTI (urinary tract infection) Disposition Disposition: [facility] Care [facility] What to do if you have Problems For any increased pain, shortness of breath, bleeding, nausea or vomiting, chestpain, or any unexpected problems, contact your Primary Care Provider. Call [facility] ([phone]) or report tothe closest Emergency Room. Call 911 if necessary. 10/09/242121 Cosigner Signature (if applicable): CC: Dr. Shayna Malhotra MD ~ Signed [facility]05-06-2025 Radiology Diagnostic study note [facility] Imaging Services [address] [place] [address] Foot min 3 Views MR#: [id number] Acct: [id number] Name: VIDA NINA Rep #: [id number] : 1950 F 73 From: Katarina Jiménez MD PCP: Dr. Shayna Malhotra MD Status: [facility] ER Study:Foot min 3 Views Date of Exam: 11/28 Exam# [id number] Ordering Dr: Dany Richardson MD EXAM: LEFT [...] Richardson MD; Dr. Shayna Malhotra MD ~ Medical Coding Technician: Signed [facility]01-29-2025 Evaluation note* Diagnosis Onset Date Resolution [...] 2) chronic October 09, 2024 9: 56pm [facility] Work Phone: 1(979) 433-855604-29-2022 NoteHNO ID: [id number] Author: Jennifer Cuevas MD Service: ? Author Type: Physician Type: Progress Notes Filed: 12/01/2021 8:04 AM Note Text: Gynecologic Oncology [facility] Follow up visit Date of service: 10/02/2021 PROBLEM/CC: Vida Nina presents for a post-op visit. SURGICAL PATHOLOGY [[id number]] Collected: 09/07/21 1104 Order Status: Completed Specimen: Tissue from UTERUS, CERVIX, BILATERAL FALLOPIAN TUBES AND BILATERAL OVARIES Updated: 09/11/21 1319 Case Report -- Surgical Pathology Report ? Case: [id number] ? Authorizing Provider: ?Jennifer Cuevas MD ? [...] A11 and A16 were reviewed at the [facility] gynecologic pathology consensus conference via telepathology on 09/09/20[address] Lupe Younger and Andra Franco agree with the diagnosis of acute salpingitis. ? Laboratory Developed Test (LDT) Disclaimer: Performance characteristics of immunohistochemical, immunofluorescent and chromogenic in-situ hybridization tests have been determined by the performing laboratory within [facility]?s [facility] and [facility] Medicine [place] ([facility], [facility], [facility] or [facility]) in a manner consistent with CLIA requirements. [...] pT, pN, and ( (more content not included)...[facility]04-29-2022 History of Present illness Narrative* Jennifer Cuevas MD - 10/02/2021 1:00 PM EDT Gynecologic Oncology [facility] Follow up visit Date of service: 10/02/2021 PROBLEM/CC: Vida Nina presents for a post-op visit. SURGICAL PATHOLOGY [[id number]] Collected: 09/07/21 1104 Order Status: Completed Specimen: Tissue from UTERUS, CERVIX, BILATERAL FALLOPIAN TUBES AND BILATERAL OVARIES Updated: 09/11/21 1316 Case Report -- Surgical Pathology Report Case: [id number] Authorizing Provider: Jennifer Cuevas MD Collected: 09/07/2021 11:04 AM Ordering Location: [facility] Received: 09/07/2021 11:12 AM Pathologist: Oseas May MD Intraop: Derick Alvarze MD Specimen: UTERUS, CERVIX, BILATERAL FALLOPIAN TUBES [...] A11 and A16 were reviewed at the [facility] gynecologic pathology consensus conference via telepathology on 09/09/20[address] Lupe Younger and Andra Franco agree with the diagnosis of acute salpingitis. Laboratory Developed Test (LDT) Disclaimer: Performance characteristics of immunohistochemical, immunofluorescent and chromogenic in-situ hybridization tests have been determined by the performing laboratory within [facility] s [facility] [place] ([facility], [facility], [facility] or [facility]) in a manner consistent with CLIA requirements. [...] fibrous ovarian parenchyma with no lesions identified. Iron Cutter sections are submitted as follows: A1-anterior cervix [...] A 17-right ovary Gross examination performed at [facility], [address] [place] [address] CLIA#[id number] OLS September 08, 2021 10:33 AM Intraoperative [...] many years since she has seen a power station operator, maybe > 10 years. Reports normal pap [...] Her incisions have healed well. Abdomen non-tender. Core Dropper for exam: Sherrie RESULTS: 07/26/21: ULTRASOUND The [...] without Cont on 08-07-2021 Abdomen/Pelvis without Cont [facility] Imaging Services [address] [place] [address] Abdomen/Pelvis without Cont MR#: [id number] Acct: [id number] Name: VIDA NINA Breann Rep #: [id number] : 1950 F 70 From: Power Lopez MD PCP: Dr. hSayna Malhotra MD Status: REG CLI Study: Abdomen/Pelvis without Cont Date of Exam: 09/25 Exam# [id number] Ordering Dr: Saad Villagomez MD STUDY: CT [...] Paper guidelines (Godoy-Parrish, et al. JACR 2017; 14(8):1255-8061) suggest no imaging follow-up is necessary. ACR White Paper guidelines (Godoy-Parrish, et al. JACR 2017; 14(8):7982-3683) suggest no imaging follow-up is necessary. Consider [...] deemed medically necessary. Reviewed prior records from [facility] and Dr. Villagomez (medical oncologist) office. Requested images from CT A/P and ultrasound to be uploaded for review. Noted elevated CA 125. Plan to proceed with surgery in September. Will need preoperative anesthesia appointment. Contact information for Jose Rafael Resendiz: nurse line [phone]; front office assistant [phone]. Documentation from my notes of previous visit [...] arrange referral to radiation treatment center in [place], [place] five minutes from where she lives. [...] Past Histories independently gathered by the clinical support analyst and the remaining scribed note accurately describes my personal service to the patient. documented in this encounterCleveland [id number] Nurse Note* Moriah Aldridge RN - 10/02/2021 12:50 PM EDT Patient arrived amb A&Ox4 in [facility] for post op visit. Patient admits to pain in abd and lower back resolved since surgery. Pt denies any new concerns, today. Pt here with Marguerite, friend. Enc and support provided. Moriah Aldridge RN documented in this encounterGu[facility]sey [facility]04-[facility]-2022 Miscellaneous Notes* Telephone Encounter - Jeffrey Ferris - 09/21/2021 12:10 PM EDT Spoke to Nurse Bernadine from [facility] stated that the patient is in the hospital and she will call when the patient comes out. So 09/22/21 appt in this office with Dr. Cuevas has been cancelled. Jeffrey Ferris 09/21/21 documented in this encounterGuernsey [facility] Hospital04-07-2022 Miscellaneous Notes* Telephone Encounter - Taniya Balderas APRN.CNP - 09/10/2021 8:25 AM EDT Called [facility] left message on nurse line to call [...] to. meds that are susceptible are iv. snf can recheck urine if still + then would need to get ID involved verbal instructions per Dr julieth Balderas APRN.MICHELLE documented in this encounterGuernsey Memorial Hospital04-06-2022 Miscellaneous Notes* Telephone Encounter - Summer Turcios RN - 09/09/2021 2:50 PM EDT Franklin from [facility] returned call to this RN. Reviewed [...] confidential e-mail) Attempted to call Franklin at [facility] to review above message, no answer. Left message on voicemailto return call. Summer Turcios RN * Telephone Encounter - Summer Turcios RN - 09/09/2021 1:58 PM EDT Franklin, nursing support worker at [facility] called stated, one of patient's lap [...] e-mail). Summer Turcios RN documented in this encounterGuernsey Memorial Hospital04-05-2022 NoteHNO ID: [id number] Author: Sam Naidu DO Service: Gynecology Oncology [...] Date 09/07/21 0700 - 09/08/21 0659 Shift 6712-0553 0678-9198 4888-7523 24 Hour Total PO 360 360 PO 360 360 IV 3988 095 2399 Volume (mL) (ceFAZolin 3 g in D5W 100 mL (ANCEF)) 100 100 Volume (mL) (NaCl 0.9% iv infusion) 500 500 Volume (mL) (lactated ringers iv infusion) 1300 1300 Volume (mL) (lactated ringers iv infusion) 300 300 Shift Total 3433 861 9173 Urine 1000 1000 Void (ml) 1000 1000 [...] 1545 VTE RISK CATEGORY: SURGICAL HIGH RISK ([place]) Active VTE Medication Orders: Anticoagulant AND Antiplatelet Medications (From admission, onward) Start Dose Route Frequency Last Action Ordered Stop 09/08/21 0900 enoxaparin 40 mg injection (LOVENOX) (Surgical Risk Categories) 40 mg SUBCUTANEOUS EVERY 24 HOURS Ordered 09/07/21 1542 -- Active VTE Prophylaxis Orders: 09/07/21 1545 PNEUMATIC COMPRESSION STOCKINGS ([place]) 09/07/21 154 ACTIVITY - MOBILIZE PATIENT ([place], [place]) VTE Prophylaxis: VTE prophylaxis appropriate Assessment/Plan Vida Nina is a 70 year old year old female POD#1 s/p EUA, TLH-BSO for endometrial cancer #Postoperative care - VSSAF - VTE (more content not included)...[facility]04-04-2022 Note HNO ID: [id number] Author: Hieu Raymond APRN.WARDROBE SPECIALIST Service: Anesthesiology Author Type: Nurse Sap Trainer Type: Anesthesia Procedure Notes Filed: 09/07/2021 9:28 AM Note Text: ANESTHESIOLOGY PROCEDURE NOTE Airway General Information Procedure Start Time/Medication Administration: 09/07/2021 8:29 AM Patient location during procedure: OR Timeout Performed Pre-procedure: timeout performed Consent Obtained: Yes Patient identity confirmed: arm band Staffing WARDROBE SPECIALIST: Hieu Raymond APRN.WARDROBE SPECIALIST Performed by: WARDROBE SPECIALIST Indications and Patient Condition Preoxygenated: yes Patient position: sniffing, ramp and reverse Trendelenburg Manual In-Line Stabilization: No Difficult Mask: No Indications for airway management: anesthesia anesthesia circuit Method: modified rapid sequence Cricoid Pressure: Yes Airway Accessory: oral airway Final Airway Details Final airway type: endotracheal airway Final Endotracheal Airway: ETT Cuffed: yes Successful intubation technique: video laryngoscopy Devices used: BorrowersFirst Endotracheal tube insertion site: oral Blade: Osman [...] intubation: no Difficult airway SIGNATURE: Hieu Raymond APRN.WARDROBE SPECIALIST PATIENT NAME: Vida Nina DATE: September 07, 2021 TIME: 9:25 AM CSN: [id number] Hospital03-29-2022 Instructions * Patient Instructions* Naila Barrientos APRN.CLINICAL PROFESSOR - 09/01/2021 3:11 PM EDT PATIENT PREOPERATIVE INSTRUCTIONS Your surgeon has scheduled for your procedure at this surgery center: Dr. Cuevas has scheduled you for your procedure at this surgery center [facility]: [phone], [address] [place], [place] [address] Enter the hospital through the main entrance and proceed directly to the Surgery Welcome Center. Asyou enter the Surgery Welcome Center and sign in with the mixing machine feeder, we may ask for your photo ID [...] If you are having surgery at the [facility], please bring your glucometer Pain Medications: You [...] surgery. - YOU MUST HAVE A RESPONSIBLE HORTICULTURAL FARMER TAKE YOU HOME. A MACHINE ASSEMBLER, CAB OR UBER HORTICULTURAL FARMER CANNOT BE [place] RESPONSIBLE HORTICULTURAL FARMER. - We recommend that a responsible person [...] COVID-19 positive. If visitors do not follow [facility] masking guidelines, caregivers can ask them to leave [facility] and restrict their visitation privileges. For support, contact Elizabeth at [phone] or [email or web address]. The visitor will be allowed to [...] and will then instruct the visitor for chicken picker directions Visitors who have tested positive [...] addressed to your surgeon Anesthesia suggested reading: Bocuhra Harris, Prepare for Surgery, Heal Faster: A Guide of Mind Body Techniques ([place], [place];[employer]: Fourth Edition) 2011 Naila Barrientos APRN.CNP 09/01/21 documented in this encounterGuernsey Memorial Hospital03-29-2022 History and physical note * Naila Barrientos [...] with Dr. Cuevas. Surgery will be at [facility] Scheduled as an TBA Have you been in contact with someone with known coronavirus/Covid 19? no Have you had surgery or pre testing at [facility] in the past 3 years? no [...] Negative for: AICD/PPM, chest pain, CHF, recent OR and open heart surgery. GI: Positive for: abdominal pain Negative for: nausea and vomiting. : No history of dysuria, frequency or incontinence, stones or chronic kidney disease. No difficulty urinating, nocturia > 1 time per night or hematuria. 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 [...] or any previous visit (from the past 22676 hour(s)). Assessment No problem-specific Assessment & Plan [...] slightly elevated. Treated with oral medications. No plant physiologist Hyperlipidemia- treated with a statin Pertinent cardiac [...] Initiated: Ordered by surgeon- none Ordered by head of acquisitions - cbc, T*S, con abo Instructions Given to Patient: Instructions located in the after visit summary. Patient given verbal and written preop instructions and voices comprehension and compliance. SIGNATURE: Naila Barrientos APRN.CNP PATIENT NAME: Vida Nina DATE: September 01, 2021 TIME: 2:53 PM PAGER/CONTACT #: documented in this encounterGuernsey [facility] Hospital03-18-2022 NoteHNO ID: [id number] Author: Jennifer Cuevas MD Service: ? Author Type: Physician Type: Progress Notes Filed: 08/26/2021 1:21 PM Note Text: Gynecologic Oncology [facility] [place] General Consult Date of service: 08/21/2021 PCP: [...] many years since she has seen a power station operator, maybe > 10 years. 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 Age at Menarche: ? Age at First : ? Age at Menopause: ? 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 Sexual Activity: Not [...] 1 capsule by mouth (more content not included)...[facility] 07-29-2021 NoteHNO ID: [id number] Author: Krunal Erazo MD Service: ? Author [...] many years since she has seen a power station operator, maybe > 10 years. 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 History Comments: Sexual Activity: Not Asked; [...] external genitalia atrophic, normal Bartholin's glands, urethra, [place]'s glands, no vulvar lesions, no cervical lesions, good vaginal support, normal appearing perineal body and perianal region, scant (more content not included)...[facility] Pre-op testing- Primary Preoperative examination, unspecified Endometrial cancer (HCC) Malignant neoplasm of corpus uteri, except isthmus Mixed hyperlipidemia 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, with long-term current use of insulin (HCC) Primary hypertension Unspecified essential hypertension Endometrial cancer (HCC) Malignant neoplasm of corpus uteri, except isthmus documented in this encounter [facility]* Diagnosis Onset Date Resolution Status Uterine mass acute Endometrial adenocarcinoma a cute Debility acute Pulmonary embolism acute [facility] Work Phone: Evaluation note* Diagnosis Onset Date Resolution Status Uterine mass acute Endometrial adenocarcinoma a cute Debility acute Pulmonary embolism acute Debility acute Elevated troponin I level ac mark Lactic acidosis acute DM2 (diabetes mellitus, type 2) chronic [facility] Work Phone: Evaluation note* Diagnosis Endometrial cancer (HCC)- Primary Malignant neoplasm of corpus uteri, except isthmus documented in this encounter [facility]* Diagnosis Onset Date Resolution Status Debility acute Pulmonary embolism acute Debility acute DM2 (diabetes mellitus, type 2) chronic Elevated troponin I level re solved Lactic acidosis resolved [facility] Work Phone: Evaluation noteNo assessment information available [facility] Work Phone: Evaluation note* Diagnosis Onset Date Resolution Status Debility acute Endometrial adenocarcinoma a cute Former smoker acute History of seizures acute Pulmonary embolism acute Vitamin D deficiency acute Bipolar disorder chronic DM2 (diabetes mellitus, type 2) chronic Type 1 diabetes mellitus chr onic [facility] Work Phone: Evaluation note* Diagnosis Onset Date Resolution Status Debility acute Vitamin D deficiency acute Bipolar disorder chronic Depression chronic DM2 (diabetes mellitus, type 2) chronic [facility] Work Phone: [facility]WKe[facility] Work Phone: Hospital Discharge instructions Additional [...] care physician for further outpatient evaluation and management.[facility] Work Phone: Summary Purpose Family History [...] FoundDocuments on File Type Date Recorded Patient Iron Cutter Expl anation Advance Directive(s) 09/07/2021 6:14 AM Advance Directive Response Recorded Date/ Time Living Will No September 20, 2021 7:30am Power of Manager Risk No September 20 7:30am Advance Directive Response Recorded Date/ Time Living Will No September 20, 2021 12:38pm Power of Manager Risk No September 20 12:38pm Advance Directive Response Recorded Date/ Time Name of Medical Power of Manager Risk TODD November 22, 2021 1:03pm Living Will Yes November 22, 2021 1:03pm Power of Manager Risk Yes November 22 1:03pm Advance Directive Response Recorded Date/ Time Name of Medical Power of Manager Risk Todd Nina November 22, 2021 5:55pm Living Will No November 22, 2021 5:55pm Power of Manager Risk Yes November 22 5:55pm Advance Directive Response Recorded Date/ Time Living Will No April 13 10:27am Power of Manager Risk Yes April 13, 2022 10:27am Advance Directive Response Recorded Date/ Time Living Will No April 13 11:27am Power of Manager Risk Yes April 13, 2022 11:27am Advance Directive Response Recorded Date/ Time Living Will No January 09, 2023 5:18pm Power of Manager Risk No January 09 5:18pm Advance Directive Response Recorded Date/ Time Living Will No January 09, 2023 4:18pm Power of Manager Risk No January 09 4:18pm Advance Directive Response Recorded Date/ Time Do you have a Healthcare Power of Manager Risk? Yes October 09, 2024 5:45pm Advance Directive Response Recorded Date/ Time Do you have a Healthcare Power of Manager Risk? No October 09, 2024 11:07pm Health Concerns Infection Onset Date Last Indicated Resolved Time COVID-19 Rule-Out 09/07/2021 09/07/2021 Chief Complaint and Reason for Visit Chief Complaint [facility]OWRK [facility]WORK [facility] LABWORK VAGINAL BLEEDING NEW-CERVICAL MASS MED ONC CERVICAL MASS 2WKS NO LABS REVIEW CT/PATH [facility]O [facility] PE, FAILURE TO THRIVE PE, FAILURE TO THRIVE Reason for Visit Uterine mass Endometrial adenocarcinoma Debility Pulmonary embolism Chief Complaint [facility] LABOWRK [facility] LABWORK M[facility] LABWORK VAGINAL BLEEDING NEW-CERVICAL MASS MED ONC CERVICAL MASS 2WKS NO LABS REVIEW CT/PATH FRO [facility] PE, FAILURE TO THRIVE PE, FAILURE TO THRIVE PE, FAILURE TO THRIVE PE, FAILURE TO THRIVE Reason for Visit Uterine mass Endometrial adenocarcinoma Debility Pulmonary embolism Chief Complaint M[facility] LABWORK MCC LABWORK VAGINAL BLEEDING NEW-CERVICAL MASS MED ONC CERVICAL MASS 2WKS NO LABS REVIEW CT/PATH FRO [facility] LABWORK PE, FAILURE TO THRIVE PE, FAILURE TO THRIVE PE, FAILURE TO THRIVE PE, FAILURE TO THRIVE M[facility] LABWORK Reason for Visit Uterine mass Endometrial adenocarcinoma Debility Pulmonary embolism Chief Complaint VAGINAL BLEEDING NEW-CERVICAL MASS MED ONC CERVICAL MASS 2WKS NO LABS REVIEW CT/PATH FRO [facility] LABWORK PE, FAILURE TO THRIVE PE, FAILURE TO THRIVE PE, FAILURE TO THRIVE PE, FAILURE TO THRIVE MCC LABWORK MCC LABWORK Reason for Visit Uterine mass Endometrial adenocarcinoma Debility Pulmonary embolism Chief Complaint VAGINAL BLEEDING NEW-CERVICAL MASS MED ONC CERVICAL MASS 2WKS NO LABS REVIEW CT/PATH FRO [facility] M[facility] LABWORK PE, FAILURE TO THRIVE PE, FAILURE TO THRIVE PE, FAILURE TO THRIVE PE, FAILURE TO THRIVE MCC LABWORK MCC LABWORK DEBILITY/KAYLA Reason for Visit Uterine mass Endometrial adenocarcinoma Debility Pulmonary embolism Chief Complaint NEW-CERVICAL MASS MED ONC CERVICAL MASS 2WKS NO LABS REVIEW CT/PATH FRO [facility] M[facility] LABWORK PE, FAILURE TO THRIVE PE, FAILURE TO THRIVE PE, FAILURE TO THRIVE PE, FAILURE TO THRIVE MCC LABWORK MCC LABWORK DEBILITY/KAYLA DEBILITY/KAYLA DEBILITY/KAYLA DEBILITY/KAYLA Reason for Visit Uterine mass Endometrial adenocarcinoma Debility Pulmonary embolism Debility Elevated troponin I level Lactic acidosis DM2 (diabetes mellitus, type 2) Chief Complaint M[facility] LABWORK PE, FAILURE TO THRIVE PE, FAILURE TO THRIVE PE, FAILURE TO THRIVE PE, FAILURE TO THRIVE MCC LABWORK MCC LABWORK DEBILITY/KAYLA DEBILITY/KAYLA DEBILITY/KAYLA DEBILITY/KAYLA DEBILITY/KAYLA MCC LABWORK MCC LABWORK MCC LAB WORK Reason for Visit Debility Pulmonary embolism Debility DM2 (diabetes mellitus, type 2) Elevated troponin I level Lactic acidosis Chief Complaint MCC LABWORK MCC LAB WORK Chief Complaint MCC LAB WOR K 1 Y FU MCC LAB WORK Reason for Visit Debility Endometrial adenocarcinoma Former smoker History of seizures Pulmonary embolism Vitamin D deficiency Bipolar disorder DM2 (diabetes mellitus, type 2) Type 1 diabetes mellitus Chief Complaint MCC LAB WOR K 1 Y FU MCC LAB WORK MCC LAB WORK Reason for Visit Debility Endometrial adenocarcinoma Former smoker History of seizures Pulmonary embolism Vitamin D deficiency Bipolar disorder DM2 (diabetes mellitus, type 2) Type 1 diabetes mellitus Chief Complaint 1 Y FU M[facility] LAB WORK MCC LAB WORK MCC LABWORK Reason for Visit Debility Endometrial adenocarcinoma Former smoker History of seizures Pulmonary embolism Vitamin D deficiency Bipolar disorder DM2 (diabetes mellitus, type 2) Type 1 diabetes mellitus Chief Complaint MCC LAB WOR K 6 M FU gen illness Reason for Visit Debility Vitamin D deficiency Bipolar disorder Depression DM2 (diabetes mellitus, type 2) Chief Complaint MCC LABWORK MCC LABWORK Chief Complaint Admit Date LT Ankle Pain July 04, 2024 1 2:57pm M[facility] LAB WORK July 09, 2024 4:00am ACUTE [...] Ankle Pain July 04, 2024 1 2:57pm M[facility] LAB WORK July 09, 2024 4:00am ACUTE CYSTITIS, NEUROPATHIC PAIN OF LEFT FOOT AND October 09, 2024 9:56pm ACUTE CYSTITIS, NEUROPATHIC PAIN OF LEFT FOOT AND October 10, 2024 7:39am Additional Source Comments INFORMATION SOURCE (unrecogn ized section and content) DATE CREATED AUTHOR 08/31/2021 [facility] DATE CREATED AUTHOR AUTHOR'S ORGANIZ ATION 12/01/2021 [facility] DATE CREATED AUTHOR AUTHOR'S ORGANIZ ATION 11/06/2024 [facility] Source Comments (unrecognize d section and content) In the event this informatio n is protected by the Federal Confidentiality of Alcohol and Drug Abuse Patient Records regulations: The Federal rules restrict any use of the information to criminally investigate or prosecute any alcohol or drug abuse patient.[facility] the event this information is protected by the Federal Confidentiality of Alcohol and Drug Abuse Patient Records regulations: The Federal rules restrict any use of the information to criminally investigate or prosecute any alcohol or drug abuse patient.[facility] the event this information is protected by the Federal Confidentiality of Alcohol and Drug Abuse Patient Records regulations: The Federal rules restrict any use of the information to criminally investigate or prosecute any alcohol or drug abuse patient.[facility] the event this information is protected by the Federal Confidentiality of Alcohol and Drug Abuse Patient Records regulations: The Federal rules restrict any use of the information to criminally investigate or prosecute any alcohol or drug abuse patient.[facility] the event this information is protected by the Federal Confidentiality of Alcohol and Drug Abuse Patient Records regulations: The Federal rules restrict any use of the information to criminally investigate or prosecute any alcohol or drug abuse patient.[facility] Reason for Visit (unrecogniz ed section [...] Shayna Malhotra MD Primary Care Provider Active [facility] Attending Provider Acti ve Team Status: [...] BE BASED ON THE PRIMARY CLINICAL RECORDS. [employer] [facility]. provides no warranty or guarantee of the accuracy or completeness of information in this document.
[2024-11-07 07:13] LABS: Absolute Lymphocyte Count 1.04 X10^3/uL (0.83-4.51); Absolute Neutrophil Count 2.2 X10^3/uL (2.0-7.7); Basophil# 0.03 X10^3/uL; Basophil% 0.8 % (0-1); Eosinophil# 0.12 X10^3/uL; Eosinophils% 3.2 % (0-5); Hematocrit 34.4 % (37-47); Hemoglobin 11.1 g/dL (12.0-15.0); Lymphocyte # 1.04 X10^3/ul (0.83-4.51); Lymphocyte % 27.4 % (19-41); Mean Corp Hgb Conc 32.3 g/dL (32-36); Mean Corpuscular Hgb 28.3 pg (27.0-32.0); Mean Corpuscular Volume 87.8 fL (81-99); Mean Platelet Vol. 10.7 fl (6.2-12.0); Monocyte# 0.37 X10^3/uL; Monocyte% 9.7 % (0-10); NRBC Flagged by Analyzer 0 % (0-5); Neutrophil # 2.22 X10^3/uL (2.7-7.7); Neutrophil % 58.4 % (47-70); Platelet Count 122 K/mm3 (150-450); RBC Distribution Width CV 15.9 % (11.6-14.6); RBC Distribution Width SD 51.3 fl (35.1-43.9); Red Blood Count 3.92 M/mm3 (4.2-5.4); White Blood Count 3.8 K/mm3 (4.4-11.0)
[2024-11-07 07:48] LABS: Anion Gap 10 (5-15); BUN 16 mg/dL (4-19); BUN/Creat Ratio 19.5 RATIO (10-20); Carbon Dioxide 25.5 mmol/L (21.0-32.0); Chloride 103 mmol/L (98-108); Creatinine, Serum 0.82 mg/dL (0.70-1.20); EST Glomerular Filtration Rate 76 (>60); Glucose 79 mg/dL (70-99); Magnesium 2.1 mg/dL (1.5-2.2); Potassium 4.1 mmol/L (3.3-5.1); Sodium Level 139 mmol/L (133-145)
== END ==
LOC: OLS.SW 05:00
PROVIDERS: PCP Internal Medicine; Visit Provider Internal Medicine
DX: I10 Essential (primary) hypertension (principal); E78.5 Hyperlipidemia, unspecified; E11.9 Type 2 diabetes mellitus without complications; F31.64 Bipolar disorder, current episode mixed, severe, with psychotic features
CPT/HCPCS: 36415; 80048; 83735; 85025

== ENCOUNTER → 2024-11-26 05:00 | Outpatient (REF) | payer MEDICARE, MEDICAID, SELFPAY ==
--- OUTSIDE RECORDS SUMMARY | 2024-11-26 04:38 | XMS RPT_ITS | CCD ---
Author Organization [facility] Care Team Providers Care Certified Coder Name Role Phone Sena Cox NP Unavailable Johnny Richardson Unavailable Unavailable Unavailable [facility] Shayna Malhotra Primary Care Provider [...] Attending Provider Marya LEAL, Shayna Attending Provider Unavailcolleen e Marya LEAL, Shayna Referring Provider Unavailabl e Dylan LEAL, Dany Emergency Provider de Armani DO, Dr. Canas Admit Provider Unavail able Hernandez DO, Dr. Canas Attending Provider Unav ailable de Armani MATHIAS, Dr. Canas Other Provider Unavail able Camilo LEAL, Dr. Santillan Attending Provider Camilo LEAL, Dr. Santillan Other Provider [phone] Marya OLS, Shayna Attending Unavailable Marya, Shayna Primary Care Unavailable Marya OLS, Shayna Referring Unavailable Marya OLS, Shayna Referring Unavailable Marya OLS, Shayna Attending Unavailable Marya, Shayna Primary Care Unavailable Marya, Shayna Primary Care Unavailable Marya, Shayna Attending Unavailable Marya, Shayna Attending Unavailable Marya, Shayna Primary Care Unavailable Marya, Shayna Primary Care Unavailable Marya, Shayna Attending Unavailable Marya, Shayna Primary Care Unavailable de Missael Lomeli Admitting Unavailable de Missael Lomeli Consulting Unavailable Tyrell Page Attending Unavailable Tyrell Page Consulting Unavailable de Missael Lomeli Attending Unavailable Marya, Shayna Primary Care Unavailable Tyrell Page Referring Unavailable Shea Royal Attending Unavailable Marya OLS, Shayna Attending Unavailable Marya, Shayna Primary Care Unavailable Marya, Shayna Primary Care Unavailable Gudla OLS, Malathi Attending Unavailable Marya, Shayna Primary Care Unavailable Gudla OLS, Malathi Attending Unavailable Marya, Shayna Primary Care Unavailable Gudla OLS, Malathi Attending Unavailable Shayna Malhotra Primary Care Unavailable Malathi Hyde Attending Unavailable Shayna Malhotra Primary Care Unavailable Missael Hernandez Consulting Unavailable Missael Hernandez Admitting Unavailable Tyrell Page Attending Unavailable Shayna Sanchez Attending Unavailable Shayna Malhotra Primary Care Unavailable Marya ROSA, Shayna Attending Unavailable Shayna Malhotra Primary Care Unavailable Allergies Allergy Classification Reported Allergen(s) Allergy Type Date of Onset Reaction(s) Facility (20 sources) Ciprofloxacin Drug Allergy 08-12-19 06 Shortness of Breath, Anaphylaxis [facility] (20 sources) Contrast media; Translations: [red dye] Drug Allergy 02-10-20 16 [facility] (5 sources) Fish Drug Allergy 02-10-20 16 [facility] (20 sources) metFORMIN Drug Allergy 11-21-19 17 Diarrhea, GI Upset, Vomiting [facility] (20 sources) paliperidone Drug Allergy 11-21-19 17 Rash [facility] (14 sources) Penicillins Drug Allergy 07-15-19 06 [facility] (20 sources) Shellfish; Translations: [shellfish derived] Drug Intolerance 02-29-20 19 Diarrhea, Vomiting [facility] (15 sources) Sulfonamides (Antibiotic) Drug Allergy 07-15-19 06 [facility] (15 sources) Iodinated Contrast Media Drug Allergy 02-29-20 19 [facility] (4 sources) Mold Extract Drug Allergy 09-08-19 22 [facility] (19 sources) Ciprofloxacin; Translations: [ciprofloxacin HCl] Drug Allergy 08-12-19 22 Anaphylaxis [facility] (18 sources) red (food color); Translations: [red (food color)] Allergy to substance 09-21-19 22 [facility] (1 source) Penicillins Drug Allergy 07-15-19 06 [facility] (8 sources) Penicillins Allergy to substance 11-23-19 [facility] (8 sources) Sulfonamides (Antibiotic) Allergy to substance 11-23-19 [facility] (8 sources) Triiodobenzoic Acids Allergy to substance 11-23-19 [facility] (1 source) Ciprofloxacin Drug Allergy 10-10-19 [facility] (1 source) metFORMIN Drug Allergy 10-10-19 [facility] (1 source) paliperidone Drug Allergy 10-10-19 [facility] (1 source) Penicillins Drug allergy (disorder) 10-10-19 [facility] (1 source) Sulfonamides (Antibiotic) Drug allergy (disorder) 10-10-19 [facility] (1 source) Iodinated Contrast Media Drug allergy (disorder) 10-10-19 [facility] Medications Current Medications Medication Drug Class(es) Dates Sig (Normalized) Sig (Original) acetaminophen 325 mg oral tablet (20 sources) Start: 09-07-2021 End: 09-21-2021 take 2 tablets by mouth every six hours acetaminophen (TYLENOL) 325 mg tablet Take 2 tablets by mouth every 6 hours for 14 days. 112 tablet 0 09/07/2021 09/21/2021 Active Start: 07-30-2021 take 1 tablet by [facility] every four hours as needed Acetaminophen (Tylenol) 325 mg tablet Active 325 MG PO EVERY 4 HOURS NEEDED July 30, 2021 4:00pm Start: 07-30-2021 take 1 tablet by mouth once Ac etaminophen (Tylenol) 325 mg tablet Active 325 MG PO ONCE July 30, 2021 4:00pm Start: 07-30-2021 take 2 tablets by [facility] every four hours as needed for pain Acetaminophen (Tylenol) 325 mg tablet Active 650 mg PO EVERY 4 HOURS NEEDED as needed for Pain, fever July 30, 2021 1:00am Comment on above: Take 650 mg by mouth every 4 hours as needed. Take 2 tablets by mo [facility] every 6 hours for 14 days. aspirin [...] Discontinued 0 .ROUTE .MEDSUPPLY September 14, 2017 12:00am September 14, 2017 [...] D2) 1,250 mcg (50,000 unit) Capsule Active 67814 U PO Q14D September 20, 2021 12:00am Take every 2 weeks on Mondays Start: 09-20-2021 take 39213 [IU] by m outh every other week Ergocalciferol (Vitamin D2) Active 79497 UNIT PO Q14D September 19, 2021 11:00pm Take every 2 weeks on Mondays Start: 09-08-2017 End: 03-21-2020 Ergocalciferol (Vitamin D2) 50,000 unit capsule Discontinued 40483 U PO EVERY MONTH September 08, 2017 12:00am March 21, 2020 2:54pm Start: 11-15-2014 End: 09-01-2021 take 1 capsule by mouth every week ergocalciferol, vitamin D2, (VITAMIN D) 50,000 unit capsule Take 1 capsule by mouth once each week. 4 capsule 12 11/15/2014 09/01/2021 Discontinued Comment on above: Take 1 capsule by [facility] once each week. glucose 0.4 mg/mg oral [...] Comment on above: Take 1 tablet by [facility] every 6 hours for 14 days. 3 [...] SOPN Use 18 units daily. INSULIN GLARGINE [id number] Sena Cox NP Comment on above: Inject [...] on above: Take 1 capsule by mo [facility] twice daily with meals for 10 doses. [...] Start: 02-10-2016 take 2 tablets by mo [facility] once daily at bedtime QUEtiapine XR (SEROQUEL XR) 300 mg 24 hr tablet Take 2 tablets by mouth daily at bedtime. 60 tablet 0 02/10/2016 Active Comment on above: Take 2 tablets by mo ut daily at bedtime. triamcinolone acetonide 1 mg/ml [...] mg tablet Discontinued 500 mg PO DAILY 10 08January 09, 2023 12:00am May 28, 2024 4:20pm [...] Discontinued 500 mg PO EVERY 6 HOURS February 28, 2019 12:00am March 21, 2020 [...] HOURS NEEDED as needed for panic attack(s) October 06, 2022 8:04am November 08, 2022 4:18pm Start: 08-15-2014 End: 01-05-2018 take 1 tablet by mouth three times daily Clonazepam 0.5 MG tablet Discontinued 0.5 mg PO THREE TIMES A DAY October 28, 2016 12:00am January 05, 2018 12:29pm Comment on above: Take 1 tablet by [facility] three times daily as needed. fluconazole 200 [...] BLOOD (3 sources) Start: 10-26-2016 End: 01-26-2025 Lit Building Directory BLUE STRP Check BG 4-5 times daily GLUCOSE BLOOD [id number] Sena Cox [employer] 3 ml insulin detemir 100 unt/ml pen [...] on above: Take 1 tablet by [facility] once daily. LANCETS (3 sources) Start: 10-26-2016 [facility] Use to check blood glucose up to 4 times daily. LANCETS [id number] Sena Cox [employer] mag hydrox/aluminum hyd/simeth (ANTACID SUSPENSION ORAL) (5 [...] Discontinued 1 NMA TOPICAL TWICE A DAY March 01, 2019 1:26pm November 22, 2021 6:36pm Miconazole powd (5 sources) Miconazole powd twice daily. 0 Active Comment on above: twice daily. nystatin [id number] unt/ml oral suspension (15 sources) Polyene Antifungal [...] November 23, 2021 11:00pm polyethylene glycol 3350 61855 mg powder for oral solution (9 sources) [...] shows localized disease. Has been referred to [facility] and has appt on 08/21/2021.Discussed management of [...] sources) Mixed hyperlipidemia; Translations: [Mixed hyperlipidemia] Onset: 10-26-2024 Chronic Essential hypertension (2 sources) Essential hypertension; Translations: [Essential (primary) hypertension] Onset: 11-21-2024 Chronic Fluid and electrolyte disorders (14 sources) [...] 09-07-2021 09-08-2021 Episodic Other aftercare (1 source) assisted (current) use of insulin; Translations: [assisted (current) use of insulin] Onset: 10-11-2024 Episodic Other connective tissue disease (4 sources) Foot pain; Translations: [Neuralgia and neuritis, unspecified] 10-09-2024 Episodic Other connective tissue disease (6 sources) Heel pain; Translations: [Pain in left foot] 10-09-2024 Episodic Other connective tissue disease (1 source) Pain in right foot; Translations: [Pain in right foot] Onset: 11-20-2024 Episodic Other connective tissue disease (1 source) [...] (1 source) No current problems or disability 05-23-2017 Other skin disorders (2 sources) Infection of [...] Range Facility Basic Metabolic Profile (BMP )on 11-07-2024 BUN/CRE 19.5 RATIO Normal 10-20 [facility] Comment on above: Order Comment: 134 Performed By: #### L 500.4050, L506.1000, L100.0100, L501.9985 #### [facility] [address] [place], [address] Calcium [Mass/Vol] 9.0 mg/dL Normal 7.6-11.0 [facility] Comment on above: Order Comment: 134 Performed By: #### L 500.4050, L506.1000, L100.0100, [id number] #### [facility] [address] [place], [address] Chloride [Moles/Vol] 103 mmol/L Normal 98-108 [facility] Comment on above: Order Comment: 134 Performed By: #### L 500.4050, L506.1000, L100.0100, L501.9985 #### [facility] [address] [place], [address] CO2 [Moles/Vol] 25.5 mmol/L Normal 21.0-32.0 [facility] Comment on above: Order Comment: 134 Performed By: #### L 500.4050, L506.1000, L100.0100, L501.9985 #### [facility] [address] [place], [address] Creatinine [Mass/Vol] 0.82 mg/dL Normal 0.70-1.20 [facility] Comment on above: Order Comment: 134 Performed By: #### L 500.4050, L506.1000, L100.0100, L501.9985 #### [facility] [address] [place], [address] GAP 10 Normal 5-15 [facility] Comment on above: Order Comment: 134 Performed By: #### L 500.4050, L506.1000, L100.0100, L501.9985 #### [facility] [address] [place], [address] GFR/1.73 sq M.predicted among non-blacks MDRD (S/P/Bld) [Vol rate/Area] 76 mL/min/{1.73_m2} Normal >60 [facility] Comment on above: Order Comment: 134 Result Comment: mL/m in/1.73m2 CKD-EPI Creatinine Equation (2020) Performed By: #### L 500.4050, L506.1000, L100.0100, L501.9985 #### [facility] [address] [place], [address] Glucose [Mass/Vol] 79 mg/dL Normal 70-99 [facility] Comment on above: Order Comment: 134 Performed By: #### L 500.4050, L506.1000, L100.0100, L501.9985 #### [facility] [address] [place], [address] Potassium [Moles/Vol] 4.1 mmol/L Normal 3.3-5.1 [facility] Comment on above: Order Comment: 134 Performed By: #### L 500.4050, L506.1000, L100.0100, L501.9985 #### [facility] [address] [place], [address] Sodium [Moles/Vol] 139 mmol/L Normal 133-145 [facility] Comment on above: Order Comment: 134 Performed By: #### L 500.4050, L506.1000, L100.0100, L501.9985 #### [facility] [address] [place], [address] Urea nitrogen [Mass/Vol] 16 mg/dL Normal 4-19 [facility] Comment on above: Order Comment: 134 Performed By: #### L 500.4050, L506.1000, L100.0100, L501.9985 #### [facility] [address] [place], [address] CBC W/Diff, Automatedon 06-0 4-2024 Absolute Lymph 1.04 X10 3/uL Normal 0.83-4.51 [facility] Comment on above: Order Comment: 134 Performed By: #### L 500.4050, L506.1000, L100.0100, L501.9985 #### [facility] [address] [place], [address] Absolute Neut 2.2 X10 3/uL Normal 2.0-7.7 [facility] Comment on above: Order Comment: 134 Performed By: #### L 500.4050, L506.1000, L100.0100, L501.9985 #### [facility] [address] [place], [address] Basophils/100 WBC (Bld) 0.8 % Normal 0-1 [facility] Comment on above: Order Comment: 134 Performed By: #### L 500.4050, L506.1000, L100.0100, L501.9985 #### [facility] [address] [place], [address] Eosinophils/100 WBC (Bld) 3.2 % Normal 0-5 [facility] Comment on above: Order Comment: 134 Performed By: #### L 500.4050, L506.1000, L100.0100, L501.9985 #### [facility] [address] [place], [address] Erythrocyte distribution width (RBC) [Ratio] 15.9 % High 11.6-14.6 [facility] Comment on above: Order Comment: 134 Performed By: #### L 500.4050, L506.1000, L100.0100, L501.9985 #### [facility] [address] [place], [address] Hematocrit (Bld) [Volume fraction] 34.4 % Low 37-47 [facility] Comment on above: Order Comment: 134 Performed By: #### L 500.4050, L506.1000, L100.0100, L501.9985 #### [facility] [address] [place], [address] Hemoglobin (Bld) [Mass/Vol] 11.1 g/dL Low 12.0-15.0 [facility] Comment on above: Order Comment: 134 Performed By: #### L 500.4050, L506.1000, L100.0100, L501.9985 #### [facility] [address] [place], [address] IG% 0.500 Normal 0.0-0.9 [facility] Comment on above: Order Comment: 134 Result Comment: IG% - Immature Granulocytes (promyelocytes, myelocytes and metamyelocytes) > 1% indicates that a LEFT SHIFT is Present. Performed By: #### L 500.4050, L506.1000, L100.0100, L501.9985 #### [facility] [address] [place], [address] Lymphocytes/100 WBC (Bld) 27.4 % Normal 19-41 [facility] Comment on above: Order Comment: 134 Performed By: #### L 500.4050, L506.1000, L100.0100, L501.9985 #### [facility] [address] [place], [address] MCH (RBC) [Entitic mass] 28.3 pg Normal 27.0-32.0 [facility] Comment on above: Order Comment: 134 Performed By: #### L 500.4050, L506.1000, L100.0100, L501.9985 #### [facility] [address] [place], [address] MCHC (RBC) [Mass/Vol] 32.3 g/dL Normal 32-36 [facility] Comment on above: Order Comment: 134 Performed By: #### L 500.4050, L506.1000, L100.0100, L501.9985 #### [facility] [address] [place], [address] MCV (RBC) [Entitic vol] 87.8 fL Normal 81-99 [facility] Comment on above: Order Comment: 134 Performed By: #### L 500.4050, L506.1000, L100.0100, L501.9985 #### [facility] [address] [place], [address] Monocytes/100 WBC (Bld) 9.7 % Normal 0-10 [facility] Comment on above: Order Comment: 134 Performed By: #### L 500.4050, L506.1000, L100.0100, L501.9985 #### [facility] [address] [place], [address] Neutrophils/100 WBC (Bld) 58.4 % Normal 47-70 [facility] Comment on above: Order Comment: 134 Performed By: #### L 500.4050, L506.1000, L100.0100, L501.9985 #### [facility] [address] [place], [address] Nucleated RBC (Bld) [#/Vol] 0 10*3/uL Normal 0-5 [facility] Comment on above: Order Comment: 134 Performed By: #### L 500.4050, L506.1000, L100.0100, L501.9985 #### [facility] [address] [place], [address] Platelet mean volume (Bld) [Entitic vol] 10.7 fL Normal 6.2-12.0 [facility] Comment on above: Order Comment: 134 Performed By: #### L 500.4050, L506.1000, L100.0100, L501.9985 #### [facility] [address] [place], [address] Platelets (Bld) [#/Vol] 122 10*3/uL Low 150-450 [facility] Comment on above: Order Comment: 134 Performed By: #### L 500.4050, L506.1000, L100.0100, L501.9985 #### [facility] [address] [place], [address] RBC (Bld) [#/Vol] 3.92 10*6/uL Low 4.2-5.4 [facility] Comment on above: Order Comment: 134 Performed By: #### L 500.4050, L506.1000, L100.0100, L501.9985 #### [facility] [address] [place], [address] RDW SD 51.3 fl High 35.1-43.9 [facility] Comment on above: Order Comment: 134 Performed By: #### L 500.4050, L506.1000, L100.0100, L501.9985 #### [facility] [address] [place], [address] WBC (Bld) [#/Vol] 3.8 10*3/uL Low 4.4-11.0 [facility] Comment on above: Order Comment: 134 Performed By: #### L 500.4050, L506.1000, L100.0100, L501.9985 #### [facility] [address] [place], [address] Magnesiumon 11-07-2024 Magnesium [Mass/Vol] 2.1 mg/dL Normal 1.5-2.2 [facility] Comment on above: Order Comment: 134 Performed By: #### L 500.4050, L506.1000, L100.0100, L501.9985 #### [facility] [address] [place], [address] Basic Metabolic Profile (BMP )on 11-06-2024 BUN Normal 4-19 [facility] Comment on above: Order Comment: 216 Result Comment: QNS UTO X1 Performed By: #### L 506.1000, L100.0100, L501.9985, L500.4050 #### [facility] [address] [place], [address] BUN/CRE Normal 10-20 [facility] Comment on above: Order Comment: 216 Result Comment: QNS UTO X1 Performed By: #### L 506.1000, L100.0100, L501.9985, L500.4050 #### [facility] [address] [place], [address] Calcium Normal 7.6-11.0 [facility] Comment on above: Order Comment: 216 Result Comment: QNS UTO X1 Performed By: #### L 506.1000, L100.0100, L501.9985, L500.4050 #### [facility] [address] [place], [address] CL Normal 98-108 [facility] Comment on above: Order Comment: 216 Result Comment: QNS UTO X1 Performed By: #### L 506.1000, L100.0100, L501.9985, L500.4050 #### [facility] [address] [place], [address] CO2 Normal 21.0-32.0 [facility] Comment on above: Order Comment: 216 Result Comment: QNS UTO X1 Performed By: #### L 506.1000, L100.0100, L501.9985, L500.4050 #### [facility] [address] [place], [address] CREAT,SERUM Normal 0.70-1.20 [facility] Comment on above: Order Comment: 216 Result Comment: QNS UTO X1 Performed By: #### L 506.1000, L100.0100, L501.9985, L500.4050 #### [facility] [address] [place], [address] eGFR Normal >60 [facility] Comment on above: Order Comment: 216 Result Comment: QNS UTO X1 Performed By: #### L 506.1000, L100.0100, L501.9985, L500.4050 #### [facility] [address] [place], [address] GAP Normal 5-15 [facility] Comment on above: Order Comment: 216 Result Comment: QNS UTO X1 Performed By: #### L 506.1000, L100.0100, L501.9985, L500.4050 #### [facility] [address] [place], [address] GLU Normal 70-99 [facility] Comment on above: Order Comment: 216 Result Comment: QNS UTO X1 Performed By: #### L 506.1000, L100.0100, L501.9985, L500.4050 #### [facility] [address] [place], [address] Potassium Normal 3.3-5.1 [facility] Comment on above: Order Comment: 216 Result Comment: QNS UTO X1 Performed By: #### L 506.1000, L100.0100, L501.9985, L500.4050 #### [facility] [address] [place], [address] Basic Metabolic Profile (BMP) Normal 133-145 [facility] Comment on above: Order Comment: 216 Result Comment: QNS UTO X1 Performed By: #### L 506.1000, L100.0100, L501.9985, L500.4050 #### [facility] [address] [place], [address] CBC W/Diff, Automatedon 06-0 -2024 Absolute Neut Normal 2.0-7.7 [facility] Comment on above: Order Comment: 216 Result Comment: QNS UTO X1 Performed By: #### L 506.1000, L100.0100, L501.9985, L500.4050 #### [facility] [address] [place], [address] HCT Normal 37-47 [facility] Comment on above: Order Comment: 216 Result Comment: QNS UTO X1 Performed By: #### L 506.1000, L100.0100, L501.9985, L500.4050 #### [facility] [address] [place], [address] HGB Normal 12.0-15.0 [facility] Comment on above: Order Comment: 216 Result Comment: QNS UTO X1 Performed By: #### L 506.1000, L100.0100, L501.9985, L500.4050 #### [facility] [address] [place], [address] MCH Normal 27.0-32.0 [facility] Comment on above: Order Comment: 216 Result Comment: QNS UTO X1 Performed By: #### L 506.1000, L100.0100, L501.9985, L500.4050 #### [facility] [address] [place], [address] MCHC Normal 32-36 [facility] Comment on above: Order Comment: 216 Result Comment: QNS UTO X1 Performed By: #### L 506.1000, L100.0100, L501.9985, L500.4050 #### [facility] [address] [place], [address] MCV Normal 81-99 [facility] Comment on above: Order Comment: 216 Result Comment: QNS UTO X1 Performed By: #### L 506.1000, L100.0100, L501.9985, L500.4050 #### [facility] [address] [place], [address] NEUT% Normal 47-70 [facility] Comment on above: Order Comment: 216 Result Comment: QNS UTO X1 Performed By: #### L 506.1000, L100.0100, L501.9985, L500.4050 #### [facility] [address] [place], [address] PLT Normal 150-450 [facility] Comment on above: Order Comment: 216 Result Comment: QNS UTO X1 Performed By: #### L 506.1000, L100.0100, L501.9985, L500.4050 #### [facility] [address] [place], [address] RBC Normal 4.2-5.4 [facility] Comment on above: Order Comment: 216 Result Comment: QNS UTO X1 Performed By: #### L 506.1000, L100.0100, L501.9985, L500.4050 #### [facility] [address] [place], [address] RDW CV Normal 11.6-14.6 [facility] Comment on above: Order Comment: 216 Result Comment: QNS UTO X1 Performed By: #### L 506.1000, L100.0100, L501.9985, L500.4050 #### [facility] [address] [place], [address] RDW SD Normal 35.1-43.9 [facility] Comment on above: Order Comment: 216 Result Comment: QNS UTO X1 Performed By: #### L 506.1000, L100.0100, L501.9985, L500.4050 #### [facility] [address] [place], [address] WBC Normal 4.4-11.0 [facility] Comment on above: Order Comment: 216 Result Comment: QNS UTO X1 Performed By: #### L 506.1000, L100.0100, L501.9985, L500.4050 #### [facility] [address] [place], [address] Lamotrigine (Lamictal) Level on 11-02-2024 LAMOTRIGINE 8.5 ug/mL Normal 2.0-20.0 [facility] Comment on above: Order Comment: 134 Result Comment: Dete ction Limit = 1.0 Performed at: [address] [id number] Compliance Testing Analyst: Cody Llanos MD, Phone: [phone] Performed By: #### L 500.4050, L506.1000, L100.0100, L501.9985 #### [facility] [address] [place], [address] Trileptal-Oxcarbazepineon OXCARBAZEPINE 5 ug/mL Low 10-35 [facility] Comment on above: Order Comment: 134 Result Comment: This test was developed and its performance characteristics determined by [facility]. It has not been cleared or approved by the Food and Drug Administration. Detection Limit = 1 Performed By: #### L 500.4050, L506.1000, L100.0100, L501.9985 #### [facility] [address] [place], [address] CRPon 11-01-2024 C-REACTIVE PROT 14.10 mg/L High 0.0-3.0 [facility] Comment on above: Performed By: #### L 500.4050, L506.1000, L100.0100, L501.9985 #### [facility] [address] [place], [address] Uric Acidon 11-01-2024 URIC 5.6 mg/dL Normal 2.6-6.0 [facility] Comment on above: Result Comment: The drugs N-Acetylcysteine and Metamizole may falsely depress this assay. Performed By: #### L 500.4050, L506.1000, L100.0100, L501.9985 #### [facility] [address] [place], [address] Hemoglobin A1con 10-30-2024 HbA1c (Bld) [Mass fraction] 7.1 % High <=5.6 [facility] Comment on above: Order Comment: 134 Result Comment: Norm al < 5.7 % Prediabetic 5.7 - 6.4 % Diabetic >or= 6.5 % Please note range changes. Performed By: #### L 500.4050, L506.1000, L100.0100, L501.9985 #### [facility] [address] [place], [address] Lipid Profileon 10-30-2024 CHOL:HDL 1.80 Normal [facility] Comment on above: Order Comment: 134 Performed By: #### L 500.4050, L506.1000, L100.0100, L501.9985 #### [facility] [address] [place], [address] Cholesterol [Mass/Vol] 99 mg/dL Normal <=200 [facility] Comment on above: Order Comment: 134 Result Comment: Chol esterol level, Desirable <200 mg/dL Borderline high cholesterol 200-239 mg/dL High cholesterol >=240 mg/dL Recommendations of the NCEP Adult Treatment Panel for the following risk-cutoff thresholds for the [place] population. Performed By: #### L 500.4050, L506.1000, L100.0100, L501.9985 #### [facility] [address] [place], [address] Cholesterol in HDL [Mass/Vol] 55 mg/dL Normal [facility] Comment on above: Order Comment: 134 Result Comment: Linda onal Cholesterol Education Program (NCEP) guidelines: <40 mg/dL: Low HDL-cholesterol (major risk factor for CHD) >= 60 mg/dL: High HDL-cholesterol (negative risk factor for CHD) HDL-cholesterol is affected by a number of factors, e.g. smoking, exercise, hormones, sex and age. Performed By: #### L 500.4050, L506.1000, L100.0100, L501.9985 #### [facility] [address] [place], [address] Cholesterol in LDL [Mass/Vol] 34 mg/dL Normal [facility] Comment on above: Order Comment: 134 Result Comment: Bord qmuzti=231-129 mg/dL Higher Nzai=446 mg/dL or greater Performed By: #### L 500.4050, L506.1000, L100.0100, L501.9985 #### [facility] [address] [place], [address] Cholesterol in VLDL [Mass/Vol] 10 mg/dL Normal 5-40 [facility] Comment on above: Order Comment: 134 Performed By: #### L 500.4050, L506.1000, L100.0100, L501.9985 #### [facility] [address] [place], [address] Triglyceride [Mass/Vol] 51 mg/dL Normal [facility] Comment on above: Order Comment: 134 Result Comment: The drugs N-Acetylcysteine and Metamizole may falsely depress this assay. Normal range: <150 mg/dL Borderline High: 150-199 mg/dL High: 200-499 mg/dL Very High: >500 mg/dL Performed By: #### L 500.4050, L506.1000, L100.0100, L501.9985 #### [facility] [address] [place], [address] Vitamin D,25 Hydroxyon 10-30 Vitamin D 25-OH 22.0 ng/mL Low 30-100 [facility] Comment on above: Order Comment: 134 Result Comment: Maricarmen min D Status Deficiency: <20 ng/mL (50nmol/L) Insufficiency: 20-30 ng/mL (50-75 nmol/L) Sufficiency: 30-100 ng/mL (75-250 nmol/L) Toxicity: >100 ng/mL (>250 nmol/L) Performed By: #### L 500.4050, L506.1000, L100.0100, L501.9985 #### [facility] [address] [place], [address] CBC-Complete Blood Cnt No Di ffon 10-25-2024 Erythrocyte distribution width (RBC) [Ratio] 15.7 % High 11.6-14.6 [facility] Comment on above: Order Comment: 134 Performed By: #### L 500.4050, L506.1000, L100.0100, L501.9985 #### [facility] [address] [place], [address] Hematocrit (Bld) [Volume fraction] 39.5 % Normal 37-47 [facility] Comment on above: Order Comment: 134 Performed By: #### L 500.4050, L506.1000, L100.0100, L501.9985 #### [facility] [address] [place], [address] Hemoglobin (Bld) [Mass/Vol] 13.0 g/dL Normal 12.0-15.0 [facility] Comment on above: Order Comment: 134 Performed By: #### L 500.4050, L506.1000, L100.0100, L501.9985 #### [facility] [address] [place], [address] MCH (RBC) [Entitic mass] 29.1 pg Normal 27.0-32.0 [facility] Comment on above: Order Comment: 134 Performed By: #### L 500.4050, L506.1000, L100.0100, L501.9985 #### [facility] [address] [place], [address] MCHC (RBC) [Mass/Vol] 32.9 g/dL Normal 32-36 [facility] Comment on above: Order Comment: 134 Performed By: #### L 500.4050, L506.1000, L100.0100, L501.9985 #### [facility] [address] [place], [address] MCV (RBC) [Entitic vol] 88.4 fL Normal 81-99 [facility] Comment on above: Order Comment: 134 Performed By: #### L 500.4050, L506.1000, L100.0100, L501.9985 #### [facility] [address] [place], [address] Platelet mean volume (Bld) [Entitic vol] 11.9 fL Normal 6.2-12.0 [facility] Comment on above: Order Comment: 134 Performed By: #### L 500.4050, L506.1000, L100.0100, L501.9985 #### [facility] [address] [place], [address] Platelets (Bld) [#/Vol] 104 10*3/uL Low 150-450 [facility] Comment on above: Order Comment: 134 Performed By: #### L 500.4050, L506.1000, L100.0100, L501.9985 #### [facility] [address] [place], [address] RBC (Bld) [#/Vol] 4.47 10*6/uL Normal 4.2-5.4 [facility] Comment on above: Order Comment: 134 Performed By: #### L 500.4050, L506.1000, L100.0100, L501.9985 #### [facility] [address] [place], [address] RDW SD 51.5 fl High 35.1-43.9 [facility] Comment on above: Order Comment: 134 Performed By: #### L 500.4050, L506.1000, L100.0100, L501.9985 #### [facility] [address] [place], [address] WBC (Bld) [#/Vol] 6.3 10*3/uL Normal 4.4-11.0 [facility] Comment on above: Order Comment: 134 Performed By: #### L 500.4050, L506.1000, L100.0100, L501.9985 #### [facility] [address] [place], [address] Comprehensive Metabolic Prof [facility] 10-25-2024 Albumin [Mass/Vol] 3.8 g/dL Normal 3.4-4.8 [facility] Comment on above: Order Comment: 134 Performed By: #### L 500.4050, L506.1000, L100.0100, L501.9985 #### [facility] [address] [place], [address] Albumin/Globulin [Mass ratio] 0.9 {ratio} Normal 0.9-2.4 [facility] Comment on above: Order Comment: 134 Performed By: #### L 500.4050, L506.1000, L100.0100, L501.9985 #### [facility] [address] [place], [address] ALK PHOS 117 U/L High 35-104 [facility] Comment on above: Order Comment: 134 Performed By: #### L 500.4050, L506.1000, L100.0100, L501.9985 #### [facility] [address] [place], [address] ALT [Catalytic activity/Vol] 37 U/L High <=34 [facility] Comment on above: Order Comment: 134 Performed By: #### L 500.4050, L506.1000, L100.0100, L501.9985 #### [facility] [address] [place], [address] AST [Catalytic activity/Vol] 44 U/L High <=31 [facility] Comment on above: Order Comment: 134 Performed By: #### L 500.4050, L506.1000, L100.0100, L501.9985 #### [facility] [address] [place], [address] Bilirubin [Mass/Vol] 0.50 mg/dL Normal 0.00-1.30 [facility] Comment on above: Order Comment: 134 Performed By: #### L 500.4050, L506.1000, L100.0100, L501.9985 #### [facility] [address] [place], [address] BUN/CRE 25.5 RATIO High 10-20 [facility] Comment on above: Order Comment: 134 Performed By: #### L 500.4050, L506.1000, L100.0100, L501.9985 #### [facility] [address] [place], [address] Calcium [Mass/Vol] 9.4 mg/dL Normal 7.6-11.0 [facility] Comment on above: Order Comment: 134 Performed By: #### L 500.4050, L506.1000, L100.0100, L501.9985 #### [facility] [address] [place], [address] Chloride [Moles/Vol] 101 mmol/L Normal 98-108 [facility] Comment on above: Order Comment: 134 Performed By: #### L 500.4050, L506.1000, L100.0100, L501.9985 #### [facility] [address] [place], [address] CO2 [Moles/Vol] 23.5 mmol/L Normal 21.0-32.0 [facility] Comment on above: Order Comment: 134 Performed By: #### L 500.4050, L506.1000, L100.0100, L501.9985 #### [facility] [address] [place], [address] Creatinine [Mass/Vol] 0.93 mg/dL Normal 0.70-1.20 [facility] Comment on above: Order Comment: 134 Performed By: #### L 500.4050, L506.1000, L100.0100, L501.9985 #### [facility] [address] [place], [address] GAP 10 Normal 5-15 [facility] Comment on above: Order Comment: 134 Performed By: #### L 500.4050, L506.1000, L100.0100, L501.9985 #### [facility] [address] [place], [address] GFR/1.73 sq M.predicted among non-blacks MDRD (S/P/Bld) [Vol rate/Area] 65 mL/min/{1.73_m2} Normal >60 [facility] Comment on above: Order Comment: 134 Result Comment: mL/m in/1.73m2 CKD-EPI Creatinine Equation (2020) Performed By: #### L 500.4050, L506.1000, L100.0100, L501.9985 #### [facility] [address] [place], [address] Globulin (S) [Mass/Vol] 4.4 g/dL High 2.2-4.2 [facility] Comment on above: Order Comment: 134 Performed By: #### L 500.4050, L506.1000, L100.0100, L501.9985 #### [facility] [address] [place], [address] Glucose [Mass/Vol] 147 mg/dL High 70-99 [facility] Comment on above: Order Comment: 134 Performed By: #### L 500.4050, L506.1000, L100.0100, L501.9985 #### [facility] [address] [place], [address] Potassium [Moles/Vol] 4.7 mmol/L Normal 3.3-5.1 [facility] Comment on above: Order Comment: 134 Performed By: #### L 500.4050, L506.1000, L100.0100, L501.9985 #### [facility] [address] [place], [address] Sodium [Moles/Vol] 134 mmol/L Normal 133-145 [facility] Comment on above: Order Comment: 134 Performed By: #### L 500.4050, L506.1000, L100.0100, L501.9985 #### [facility] [address] [place], [address] T PROT 8.2 g/dL Normal 5.9-8.4 [facility] Comment on above: Order Comment: 134 Performed By: #### L 500.4050, L506.1000, L100.0100, L501.9985 #### [facility] [address] [place], [address] Urea nitrogen [Mass/Vol] 24 mg/dL High 4-19 [facility] Comment on above: Order Comment: 134 Performed By: #### L 500.4050, L506.1000, L100.0100, L501.9985 #### [facility] [address] [place], [address] Urine Cultureon 10-14-2024 [facility] Urine Culture Urine Culture Escherichia coli Jasper Count 80,000-100,000 Escherichia coli: REACTION Ampicillin Islt [...] TMP SMX Islt TRANG <=20 S Normal [facility] Comment on above: Performed By: #### L 500.4050, L506.1000, L100.0100, L501.9985 #### [facility] [address] [place], [address] Basic Metabolic Profile (BMP )on 10-12-2024 BUN Normal 4-19 [facility] Comment on above: Result Comment: Canc elled via OM: Order cancelled - Patient discharged Performed By: #### L 506.1000, L100.0100, L501.9985, L500.4050 #### [facility] [address] [place], [address] BUN/CRE Normal 10-20 [facility] Comment on above: Result Comment: Canc elled via OM: Order cancelled - Patient discharged Performed By: #### L 506.1000, L100.0100, L501.9985, L500.4050 #### [facility] [address] [place], [address] Calcium Normal 7.6-11.0 [facility] Comment on above: Result Comment: Canc elled via OM: Order cancelled - Patient discharged Performed By: #### L 506.1000, L100.0100, L501.9985, L500.4050 #### [facility] [address] [place], [address] CL Normal 98-108 [facility] Comment on above: Result Comment: Canc elled via OM: Order cancelled - Patient discharged Performed By: #### L 506.1000, L100.0100, L501.9985, L500.4050 #### [facility] [address] [place], [address] CO2 Normal 21.0-32.0 [facility] Comment on above: Result Comment: Canc elled via OM: Order cancelled - Patient discharged Performed By: #### L 506.1000, L100.0100, L501.9985, L500.4050 #### [facility] [address] [place], [address] CREAT,SERUM Normal 0.70-1.20 [facility] Comment on above: Result Comment: Canc elled via OM: Order cancelled - Patient discharged Performed By: #### L 506.1000, L100.0100, L501.9985, L500.4050 #### [facility] [address] [place], [address] eGFR Normal >60 [facility] Comment on above: Result Comment: Canc elled via OM: Order cancelled - Patient discharged Performed By: #### L 506.1000, L100.0100, L501.9985, L500.4050 #### [facility] [address] [place], [address] GAP Normal 5-15 [facility] Comment on above: Result Comment: Canc elled via OM: Order cancelled - Patient discharged Performed By: #### L 506.1000, L100.0100, L501.9985, L500.4050 #### [facility] [address] [place], [address] GLU Normal 70-99 [facility] Comment on above: Result Comment: Canc elled via OM: Order cancelled - Patient discharged Performed By: #### L 506.1000, L100.0100, L501.9985, L500.4050 #### [facility] [address] [place], [address] Potassium Normal 3.3-5.1 [facility] Comment on above: Result Comment: Canc elled via OM: Order cancelled - Patient discharged Performed By: #### L 506.1000, L100.0100, L501.9985, L500.4050 #### [facility] [address] [place], [address] Basic Metabolic Profile (BMP) Normal 133-145 [facility] Comment on above: Result Comment: Canc elled via OM: Order cancelled - Patient discharged Performed By: #### L 506.1000, L100.0100, L501.9985, L500.4050 #### [facility] [address] [place], [address] CBC W/Diff, Automatedon 05-0 Absolute Neut Normal 2.0-7.7 [facility] Comment on above: Result Comment: Canc elled via OM: Order cancelled - Patient discharged Performed By: #### L 506.1000, L100.0100, L501.9985, L500.4050 #### [facility] [address] [place], [address] HCT Normal 37-47 [facility] Comment on above: Result Comment: Canc elled via OM: Order cancelled - Patient discharged Performed By: #### L 506.1000, L100.0100, L501.9985, L500.4050 #### [facility] [address] [place], [address] HGB Normal 12.0-15.0 [facility] Comment on above: Result Comment: Canc elled via OM: Order cancelled - Patient discharged Performed By: #### L 506.1000, L100.0100, L501.9985, L500.4050 #### [facility] [address] [place], [address] MCH Normal 27.0-32.0 [facility] Comment on above: Result Comment: Canc elled via OM: Order cancelled - Patient discharged Performed By: #### L 506.1000, L100.0100, L501.9985, L500.4050 #### [facility] [address] [place], [address] MCHC Normal 32-36 [facility] Comment on above: Result Comment: Canc elled via OM: Order cancelled - Patient discharged Performed By: #### L 506.1000, L100.0100, L501.9985, L500.4050 #### [facility] [address] [place], [address] MCV Normal 81-99 [facility] Comment on above: Result Comment: Canc elled via OM: Order cancelled - Patient discharged Performed By: #### L 506.1000, L100.0100, L501.9985, L500.4050 #### [facility] [address] [place], [address] NEUT% Normal 47-70 [facility] Comment on above: Result Comment: Canc elled via OM: Order cancelled - Patient discharged Performed By: #### L 506.1000, L100.0100, L501.9985, L500.4050 #### [facility] [address] [place], [address] PLT Normal 150-450 [facility] Comment on above: Result Comment: Canc elled via OM: Order cancelled - Patient discharged Performed By: #### L 506.1000, L100.0100, L501.9985, L500.4050 #### [facility] [address] [place], [address] RBC Normal 4.2-5.4 [facility] Comment on above: Result Comment: Canc elled via OM: Order cancelled - Patient discharged Performed By: #### L 506.1000, L100.0100, L501.9985, L500.4050 #### [facility] [address] [place], [address] RDW CV Normal 11.6-14.6 [facility] Comment on above: Result Comment: Canc elled via OM: Order cancelled - Patient discharged Performed By: #### L 506.1000, L100.0100, L501.9985, L500.4050 #### [facility] [address] [place], [address] RDW SD Normal 35.1-43.9 [facility] Comment on above: Result Comment: Canc elled via OM: Order cancelled - Patient discharged Performed By: #### L 506.1000, L100.0100, L501.9985, L500.4050 #### [facility] [address] [place], [address] WBC Normal 4.4-11.0 [facility] Comment on above: Result Comment: Canc elled via OM: Order cancelled - Patient discharged Performed By: #### L 506.1000, L100.0100, L501.9985, L500.4050 #### [facility] [address] [place], [address] Absolute lymphocyte countOrd ered By: Tyrell Page on 10-11-2024 Lymphocytes Auto (Unsp spec) [#/Vol] 1.20 10*3/uL 0.83-4.51 [facility] Absolute neutrophil countOrd ered By: Tyrell Page on 10-11-2024 Neutrophils (Bld) [#/Vol] 2.6 10*3/uL 2.0-7.7 [facility] Anion gap in Serum or Plasma Ordered By: Tyrell Page on 10-11-2024 Anion gap [Moles/Vol] 10 mmol/L 5-15 [facility] Automated lymphocyte count a s percentage of total leukocytesOrdered By: Tyrell Page on 10-11-2024 Lymphocytes/100 WBC Auto (Unsp spec) 26.8 % 19-41 [facility] BUN/creatinine ratioOrdered By: Tyrell Page on 10-11-2024 Urea nitrogen/Creatinine [Mass ratio] 28.3 mg/mg High 10-20 [facility] Basic Metabolic Profile (BMP )on 10-11-2024 BUN/CRE 28.3 RATIO High - [facility] Comment on above: Performed By: #### L 506.1000, L100.0100, L501.9985, L500.4050 #### [facility] [address] [place], [address] Calcium [Mass/Vol] 9.2 mg/dL Normal 7.6-11.0 [facility] Comment on above: Performed By: #### L 506.1000, L100.0100, L501.9985, L500.4050 #### [facility] [address] [place], [address] Chloride [Moles/Vol] 108 mmol/L Normal 98-108 [facility] Comment on above: Performed By: #### L 506.1000, L100.0100, L501.9985, L500.4050 #### [facility] [address] [place], [address] CO2 [Moles/Vol] 20.7 mmol/L Low 21.0-32.0 [facility] Comment on above: Performed By: #### L 506.1000, L100.0100, L501.9985, L500.4050 #### [facility] [address] [place], [address] Creatinine [Mass/Vol] 0.76 mg/dL Normal 0.70-1.20 [facility] Comment on above: Performed By: #### L 506.1000, L100.0100, L501.9985, L500.4050 #### [facility] [address] [place], [address] ECRCL 89.89 ml/min Normal 50-250 [facility] Comment on above: Performed By: #### L 506.1000, L100.0100, L501.9985, L500.4050 #### [facility] [address] [place], [address] GAP 10 Normal 5-15 [facility] Comment on above: Performed By: #### L 506.1000, L100.0100, L501.9985, L500.4050 #### [facility] [address] [place], [address] GFR/1.73 sq M.predicted among non-blacks MDRD (S/P/Bld) [Vol rate/Area] 84 mL/min/{1.73_m2} Normal >60 [facility] Comment on above: Result Comment: mL/m in/1.73m2 CKD-EPI Creatinine Equation (2020) Performed By: #### L 506.1000, L100.0100, L501.9985, L500.4050 #### [facility] [address] [place], [address] Glucose [Mass/Vol] 131 mg/dL High 70-99 [facility] Comment on above: Performed By: #### L 506.1000, L100.0100, L501.9985, L500.4050 #### [facility] [address] [place], [address] Potassium [Moles/Vol] 3.9 mmol/L Normal 3.3-5.1 [facility] Comment on above: Performed By: #### L 506.1000, L100.0100, L501.9985, L500.4050 #### [facility] [address] [place], [address] Sodium [Moles/Vol] 139 mmol/L Normal 133-145 [facility] Comment on above: Performed By: #### L 506.1000, L100.0100, L501.9985, L500.4050 #### [facility] [address] [place], [address] Urea nitrogen [Mass/Vol] 21 mg/dL High 4-19 [facility] Comment on above: Performed By: #### L 506.1000, L100.0100, L501.9985, L500.4050 #### [facility] [address] [place], [address] Basophil percentageOrdered B y: Tyrell Page on 10-11-2024 Basophils/100 WBC (Bld) 0.7 % 0-1 [facility] Bedside Glucoseon 10-11-2024 FINGERSTICK GLU 137 mg/dL High 74-106 [facility] Comment on above: Result Comment: ALINA GABRIEL OF PATIENT CARE PER NURSING PROTOCOL Performed By: #### L 500.4050, L506.1000, L100.0100, L501.9985 #### [facility] [address] [place], [address] CBC W/Diff, Automatedon PLT EST SLT DEC Normal ADEQ [facility] Comment on above: Performed By: #### L 500.4050, L506.1000, L100.0100, L501.9985 #### [facility] [address] [place], [address] Carbon dioxide, total [Moles /volume] in Central venous bloodOrdered By: Tyrell Page on 10-11-2024 CO2 [Moles/Vol] 20.7 mmol/L Low 21.0-32.0 [facility] Chloride assayOrdered By: Arabella Page on 10-11-2024 Chloride [Moles/Vol] 108 mmol/L 98-108 [facility] Eosinophil percentageOrdered By: Tyrell Page on 10-11-2024 Eosinophils/100 WBC (Bld) 5.1 % High 0-5 [facility] Erythrocyte distribution wid th ratioOrdered By: Tyrell Page on 10-11-2024 Erythrocyte distribution width (RBC) [Ratio] 16.0 % High 11.6-14.6 [facility] Erythrocyte distribution wid th standard deviationOrdered By: Tyrell Page on 10-11-2024 Erythrocyte distribution width (RBC) [Ratio] 50.8 fl High 35.1-43.9 [facility] Glomerular filtration rate ( GFR) estimation/1.73 sq m using serum, plasma, or whole bOrdered By: Tyrell Page on 10-11-2024 GFR/1.73 sq M.predicted among non-blacks MDRD (S/P/Bld) [Vol rate/Area] 84 mL/min/{1.73_m2} >60 [facility] Comment on above: mL/min/1.73m2 CKD-EP I Creatinine Equation (2020) Glucose [facility] at [facility] deOrdered By: Tyrell Page on 10-11-2024 Glucose [Mass/Vol] 137 mg/dL High 74-106 [facility] Comment on above: MANAGEMENT OF PATIEN T CARE PER NURSING PROTOCOL Hematocrit Auto (Bld) [Volum e fraction]Ordered By: Tyrell Page on 10-11-2024 Hematocrit (Bld) [Volume fraction] 34.0 % Low 37-47 [facility] Hemoglobin measurementOrdere d By: Tyrell Page on 10-11-2024 Hemoglobin (Bld) [Mass/Vol] 11.3 g/dL Low 12.0-15.0 [facility] Immature granulocytes/100 WB C Auto (Bld)Ordered By: Tyrell Page on 10-11-2024 Immature granulocytes/100 WBC (Bld) 0.200 % 0.0-0.9 [facility] Comment on above: IG% - Immature Granu locytes (promyelocytes, myelocytes and metamyelocytes) > 1% indicates that a LEFT SHIFT is Present. MCV (mean corpuscular volume ) determinationOrdered By: Tyrell Page on 10-11-2024 MCV (RBC) [Entitic vol] 86.7 fL 81-99 [facility] Magnesiumon 10-11-2024 Magnesium [Mass/Vol] 2.1 mg/dL Normal 1.5-2.2 [facility] Comment on above: Performed By: #### L 506.1000, L100.0100, L501.9985, L500.4050 #### [facility] [address] [place], [address] Magnesium measurement (mass/ volume)Ordered By: Tyrell Page on 10-11-2024 Magnesium (Unsp spec) [Mass/Vol] 2.1 mg/dL 1.5-2.2 [facility] Mean corpuscular hemoglobin (MCH) determinationOrdered By: Tyrell Page on 10-11-2024 MCH (RBC) [Entitic mass] 28.8 pg 27.0-32.0 [facility] Mean corpuscular hemoglobin concentration (MCHC) determinationOrdered By: Tyrell Page on 10-11-2024 MCHC (RBC) [Mass/Vol] 33.2 g/dL 32-36 [facility] Mean platelet volume determi nationOrdered By: Tyrell Page on 10-11-2024 Platelet mean volume (Bld) [Entitic vol] 11.1 fL 6.2-12.0 [facility] Monocyte percentageOrdered B y: Tyrell Page on 10-11-2024 Monocytes/100 WBC (Bld) 9.8 % 0-10 [facility] Neutrophil percentageOrdered By: Tyrell Page on 10-11-2024 Neutrophils/100 WBC (Bld) 57.4 % 47-70 [facility] Nucleated red blood cell per centageOrdered By: Tyrell Page on 10-11-2024 Nucleated RBC/100 WBC (Bld) [Ratio] 0 % 0-5 [facility] Phosphoruson 10-11-2024 Phosphate [Mass/Vol] 3.7 mg/dL Normal 2.7-4.5 [facility] Comment on above: Performed By: #### L 506.1000, L100.0100, L501.9985, L500.4050 #### [facility] [address] [place], [address] Platelet countOrdered By: Arabella Page on 10-11-2024 Platelets (Bld) [#/Vol] 95 10*3/uL Low 150-450 [facility] Platelet estimateOrdered By: Tyrell Page on 10-11-2024 Platelets LM Ql (Bld) SLT DEC ADEQ [facility] Potassium measurement (mass/ volume)Ordered By: Tyrell Page on 10-11-2024 Potassium (Unsp spec) [Mass/Vol] 3.9 mmol/L 3.3-5.1 [facility] RBC Auto (Bld) [#/Vol]Ordere d By: Tyrell Page on 10-11-2024 RBC (Bld) [#/Vol] 3.92 10*6/uL Low 4.2-5.4 [facility] Serum creatinine measurement (mass/volume)Ordered By: Tyrell Page on 10-11-2024 Creatinine [Mass/Vol] 0.76 mg/dL 0.70-1.20 [facility] Serum glucose measurement (m ass/volume)Ordered By: Tyrell Page on 10-11-2024 Glucose [Mass/Vol] 131 mg/dL High 70-99 [facility] Serum or plasma calcium kim urement (mass/volume)Ordered By: Tyrell Page on 10-11-2024 Calcium [Mass/Vol] 9.2 mg/dL 7.6-11.0 [facility] Serum or plasma urea nitroge n measurement (mass/volume)Ordered By: Tyrell Page on 10-11-2024 Urea nitrogen [Mass/Vol] 21 mg/dL High 4-19 [facility] Sodium levelOrdered By: Nikunj Page on 10-11-2024 Sodium [Moles/Vol] 139 mmol/L 133-145 [facility] White blood cell (WBC) count Ordered By: Tyrell Page on 10-11-2024 WBC (Bld) [#/Vol] 4.5 10*3/uL 4.4-11.0 [facility] Bedside Glucoseon 10-10-2024 FINGERSTICK GLU 159 mg/dL [address] Comment on above: Result Comment: ALINA GEMENT OF PATIENT CARE PER NURSING PROTOCOL Performed By: #### L 506.1000, L100.0100, L501.9985, L500.4050 #### [facility] [address] [place], [address] FINGERSTICK GLU 196 mg/dL [address] Comment on above: Result Comment: ALINA GEMENT OF PATIENT CARE PER NURSING PROTOCOL Performed By: #### L 506.1000, L100.0100, L501.9985, L500.4050 #### [facility] [address] [place], [address] FINGERSTICK GLU 165 mg/dL [address] Comment on above: Result Comment: ALINA GEMENT OF PATIENT CARE PER NURSING PROTOCOL Performed By: #### L 501.080 #### [facility] [address] [place], [address] FINGERSTICK GLU 159 mg/dL [address] Comment on above: Result Comment: ALINA GEMENT OF PATIENT CARE PER NURSING PROTOCOL Performed By: #### L 506.1000, L100.0100, L501.9985, L500.4050 #### [facility] [address] [place], [address] FINGERSTICK GLU 148 mg/dL [address] Comment on above: Result Comment: ALINA GEMENT OF PATIENT CARE PER NURSING PROTOCOL Performed By: #### L 506.1000, L100.0100, L501.9985, L500.4050 #### [facility] [address] [place], [address] Bilirubin, totalOrdered By: Missael Lomeli on 10-10-2024 Bilirubin [Mass/Vol] 0.68 mg/dL 0.00-1.30 [facility] CBC W/Diff, Automatedon Absolute Lymph 1.03 X10 3/uL Normal 0.83-4.51 [facility] Comment on above: Performed By: #### L 506.1000, L100.0100, L501.9985, L500.4050 #### [facility] [address] [place], [address] Absolute Neut 3.4 X10 3/uL Normal 2.0-7.7 [facility] Comment on above: Performed By: #### L 506.1000, L100.0100, L501.9985, L500.4050 #### [facility] [address] [place], [address] Basophils/100 WBC (Bld) 0.6 % Normal 0-1 [facility] Comment on above: Performed By: #### L 506.1000, L100.0100, L501.9985, L500.4050 #### [facility] [address] [place], [address] Eosinophils/100 WBC (Bld) 5.1 % High 0-5 [facility] Comment on above: Performed By: #### L 506.1000, L100.0100, L501.9985, L500.4050 #### [facility] [address] [place], [address] Erythrocyte distribution width (RBC) [Ratio] 15.9 % High 11.6-14.6 [facility] Comment on above: Performed By: #### L 506.1000, L100.0100, L501.9985, L500.4050 #### [facility] [address] [place], [address] Hematocrit (Bld) [Volume fraction] 37.6 % Normal 37-47 [facility] Comment on above: Performed By: #### L 506.1000, L100.0100, L501.9985, L500.4050 #### [facility] [address] [place], [address] Hemoglobin (Bld) [Mass/Vol] 12.3 g/dL Normal 12.0-15.0 [facility] Comment on above: Performed By: #### L 506.1000, L100.0100, L501.9985, L500.4050 #### [facility] [address] [place], [address] IG% 0.200 Normal 0.0-0.9 [facility] Comment on above: Result Comment: IG% - Immature Granulocytes (promyelocytes, myelocytes and metamyelocytes) > 1% indicates that a LEFT SHIFT is Present. Performed By: #### L 506.1000, L100.0100, L501.9985, L500.4050 #### [facility] [address] [place], [address] Lymphocytes/100 WBC (Bld) 19.6 % Normal 19-41 [facility] Comment on above: Performed By: #### L 506.1000, L100.0100, L501.9985, L500.4050 #### [facility] [address] [place], [address] MCH (RBC) [Entitic mass] 28.8 pg Normal 27.0-32.0 [facility] Comment on above: Performed By: #### L 506.1000, L100.0100, L501.9985, L500.4050 #### [facility] [address] [place], [address] MCHC (RBC) [Mass/Vol] 32.7 g/dL Normal 32-36 [facility] Comment on above: Performed By: #### L 506.1000, L100.0100, L501.9985, L500.4050 #### [facility] [address] [place], [address] MCV (RBC) [Entitic vol] 88.1 fL Normal 81-99 [facility] Comment on above: Performed By: #### L 506.1000, L100.0100, L501.9985, L500.4050 #### [facility] [address] [place], [address] Monocytes/100 WBC (Bld) 9.1 % Normal 0-10 [facility] Comment on above: Performed By: #### L 506.1000, L100.0100, L501.9985, L500.4050 #### [facility] [address] [place], [address] Neutrophils/100 WBC (Bld) 65.4 % Normal 47-70 [facility] Comment on above: Performed By: #### L 506.1000, L100.0100, L501.9985, L500.4050 #### [facility] [address] [place], [address] Nucleated RBC (Bld) [#/Vol] 0 10*3/uL Normal 0-5 [facility] Comment on above: Performed By: #### L 506.1000, L100.0100, L501.9985, L500.4050 #### [facility] [address] [place], [address] Platelet mean volume (Bld) [Entitic vol] 11.7 fL Normal 6.2-12.0 [facility] Comment on above: Performed By: #### L 506.1000, L100.0100, L501.9985, L500.4050 #### [facility] [address] [place], [address] Platelets (Bld) [#/Vol] 100 10*3/uL Low 150-450 [facility] Comment on above: Performed By: #### L 506.1000, L100.0100, L501.9985, L500.4050 #### [facility] [address] [place], [address] RBC (Bld) [#/Vol] 4.27 10*6/uL Normal 4.2-5.4 [facility] Comment on above: Performed By: #### L 506.1000, L100.0100, L501.9985, L500.4050 #### [facility] [address] [place], [address] RDW SD 51.4 fl High 35.1-43.9 [facility] Comment on above: Performed By: #### L 506.1000, L100.0100, L501.9985, L500.4050 #### [facility] [address] [place], [address] WBC (Bld) [#/Vol] 5.3 10*3/uL Normal 4.4-11.0 [facility] Comment on above: Performed By: #### L 506.1000, L100.0100, L501.9985, L500.4050 #### [facility] [address] [place], [address] Calculated very low density lipoprotein (VLDL) cholesterol measurementOrdered By: Missael Lomeli on 10-10-2024 Calculated very low density lipoprotein (VLDL) cholesterol measurement 16 mg/dL 5-40 [facility] Comprehensive Metabolic Prof ilon 10-10-2024 Albumin [Mass/Vol] 3.5 g/dL Normal 3.4-4.8 [facility] Comment on above: Performed By: #### L 500.4050, L506.1000, L100.0100, L501.9985 #### [facility] [address] [place], [address] Albumin/Globulin [Mass ratio] 1.0 {ratio} Normal 0.9-2.4 [facility] Comment on above: Performed By: #### L 500.4050, L506.1000, L100.0100, L501.9985 #### [facility] [address] [place], [address] ALK PHOS 122 U/L High 35-104 [facility] Comment on above: Performed By: #### L 500.4050, L506.1000, L100.0100, L501.9985 #### [facility] [address] [place], [address] ALT [Catalytic activity/Vol] 23 U/L Normal <=34 [facility] Comment on above: Performed By: #### L 500.4050, L506.1000, L100.0100, L501.9985 #### [facility] [address] [place], [address] AST [Catalytic activity/Vol] 37 U/L High <=31 [facility] Comment on above: Result Comment: Hemo lysis present, Results??could be affected. ?? Performed By: #### L 500.4050, L506.1000, L100.0100, L501.9985 #### [facility] [address] [place], [address] Bilirubin [Mass/Vol] 0.68 mg/dL Normal 0.00-1.30 [facility] Comment on above: Performed By: #### L 500.4050, L506.1000, L100.0100, L501.9985 #### [facility] [address] [place], [address] BUN/CRE 25.4 RATIO High 10-20 [facility] Comment on above: Performed By: #### L 500.4050, L506.1000, L100.0100, L501.9985 #### [facility] [address] [place], [address] Calcium [Mass/Vol] 8.9 mg/dL Normal 7.6-11.0 [facility] Comment on above: Performed By: #### L 500.4050, L506.1000, L100.0100, L501.9985 #### [facility] [address] [place], [address] Chloride [Moles/Vol] 106 mmol/L Normal 98-108 [facility] Comment on above: Performed By: #### L 500.4050, L506.1000, L100.0100, L501.9985 #### [facility] [address] [place], [address] CO2 [Moles/Vol] 19.0 mmol/L Low 21.0-32.0 [facility] Comment on above: Performed By: #### L 500.4050, L506.1000, L100.0100, L501.9985 #### [facility] [address] [place], [address] Creatinine [Mass/Vol] 0.78 mg/dL Normal 0.70-1.20 [facility] Comment on above: Performed By: #### L 500.4050, L506.1000, L100.0100, L501.9985 #### [facility] [address] [place], [address] ECRCL 88.83 ml/min Normal 50-250 [facility] Comment on above: Performed By: #### L 500.4050, L506.1000, L100.0100, L501.9985 #### [facility] [address] [place], [address] GAP 13 Normal 5-15 [facility] Comment on above: Performed By: #### L 500.4050, L506.1000, L100.0100, L501.9985 #### [facility] [address] [place], [address] GFR/1.73 sq M.predicted among non-blacks MDRD (S/P/Bld) [Vol rate/Area] 81 mL/min/{1.73_m2} Normal >60 [facility] Comment on above: Result Comment: mL/m in/1.73m2 CKD-EPI Creatinine Equation (2020) Performed By: #### L 500.4050, L506.1000, L100.0100, L501.9985 #### [facility] [address] [place], [address] Globulin (S) [Mass/Vol] 3.7 g/dL Normal 2.2-4.2 [facility] Comment on above: Performed By: #### L 500.4050, L506.1000, L100.0100, L501.9985 #### [facility] [address] [place], [address] Glucose [Mass/Vol] 151 mg/dL High 70-99 [facility] Comment on above: Performed By: #### L 500.4050, L506.1000, L100.0100, L501.9985 #### [facility] [address] [place], [address] Potassium [Moles/Vol] 4.3 mmol/L Normal 3.3-5.1 [facility] Comment on above: Result Comment: Hemo lysis present, Results??could be affected. ?? Performed By: #### L 500.4050, L506.1000, L100.0100, L501.9985 #### [facility] [address] [place], [address] Sodium [Moles/Vol] 138 mmol/L Normal 133-145 [facility] Comment on above: Performed By: #### L 500.4050, L506.1000, L100.0100, L501.9985 #### [facility] [address] [place], [address] T PROT 7.2 g/dL Normal 5.9-8.4 [facility] Comment on above: Performed By: #### L 500.4050, L506.1000, L100.0100, L501.9985 #### [facility] [address] [place], [address] Urea nitrogen [Mass/Vol] 20 mg/dL High 4-19 [facility] Comment on above: Performed By: #### L 500.4050, L506.1000, L100.0100, L501.9985 #### [facility] [address] [place], [address] Folate [Moles/volume] in Ser um or PlasmaOrdered By: Missael Lomeli on 10-10-2024 Folate [Moles/Vol] 7.20 ng/mL 4.60-34.80 [facility] Comment on above: Hemolysis, Results w ill be affected, Requires Recollection. Folates,Serum (Folic Acid)on 10-10-2024 FOLATES,SERUM 7.20 ng/mL Normal 4.60-34.80 [facility] Comment on above: Order Comment: 134 Result Comment: Hemo lysis, Results will be affected, Requires Recollection. Performed By: #### L 500.4050, L506.1000, L100.0100, L501.9985 #### [facility] [address] [place], [address] Hemoglobin A1con 10-10-2024 HbA1c (Bld) [Mass fraction] 7.2 % High <=5.6 [facility] Comment on above: Result Comment: Norm al < 5.7 % Prediabetic 5.7 - 6.4 % Diabetic >or= 6.5 % Please note range changes. Performed By: #### L 500.4050, L506.1000, L100.0100, L501.9985 #### [facility] [address] [place], [address] LDL calc ser/plasOrdered By: Missael Lomeli on 10-10-2024 Cholesterol in LDL [Mass/Vol] 31 mg/dL [facility] Comment on above: Kecdcglrys=184-074 m g/dL & Higher Rtcq=258 mg/dL or greater Laboratory - Chemistry and C hemistry - challengeOrdered By: Missael Lomeli on 10-10-2024 AST [Catalytic activity/Vol] 37 U/L High <32 [facility] Comment on above: Hemolysis present, R esults could be affected. Lipid Profileon 10-10-2024 CHOL:HDL 1.84 Normal [facility] Comment on above: Performed By: #### L 506.1000, L100.0100, L501.9985, L500.4050 #### [facility] [address] [place], [address] Cholesterol [Mass/Vol] 103 mg/dL Normal <=200 [facility] Comment on above: Result Comment: Chol esterol level, Desirable <200 mg/dL Borderline high cholesterol 200-239 mg/dL High cholesterol >=240 mg/dL Recommendations of the NCEP Adult Treatment Panel for the following risk-cutoff thresholds for the [place] population. Performed By: #### L 506.1000, L100.0100, L501.9985, L500.4050 #### [facility] [address] [place], [address] Cholesterol in HDL [Mass/Vol] 56 mg/dL Normal [facility] Comment on above: Result Comment: Linda onal Cholesterol Education Program (NCEP) guidelines: <40 mg/dL: Low HDL-cholesterol (major risk factor for CHD) >= 60 mg/dL: High HDL-cholesterol (negative risk factor for CHD) HDL-cholesterol is affected by a number of factors, e.g. smoking, exercise, hormones, sex and age. Performed By: #### L 506.1000, L100.0100, L501.9985, L500.4050 #### [facility] [address] [place], [address] Cholesterol in LDL [Mass/Vol] 31 mg/dL Normal [facility] Comment on above: Result Comment: Bord cnaqox=344-143 mg/dL Higher Gmzq=165 mg/dL or greater Performed By: #### L 506.1000, L100.0100, L501.9985, L500.4050 #### [facility] [address] [place], [address] Cholesterol in VLDL [Mass/Vol] 16 mg/dL Normal 5-40 [facility] Comment on above: Performed By: #### L 506.1000, L100.0100, L501.9985, L500.4050 #### [facility] [address] [place], [address] Triglyceride [Mass/Vol] 82 mg/dL Normal [facility] Comment on above: Result Comment: The drugs N-Acetylcysteine and Metamizole may falsely depress this assay. Normal range: <150 mg/dL Borderline High: 150-199 mg/dL High: 200-499 mg/dL Very High: >500 mg/dL Performed By: #### L 506.1000, L100.0100, L501.9985, L500.4050 #### [facility] [address] [place], [address] Phosphoruson 10-10-2024 Phosphate [Mass/Vol] 3.3 mg/dL Normal 2.7-4.5 [facility] Comment on above: Performed By: #### L 506.1000, L100.0100, L501.9985, L500.4050 #### [facility] [address] [place], [address] Screening total cholesterol/ high density lipoprotein (HDL) cholesterol ratioOrdered By: Missael Lomeli on 10-10-2024 Cholesterol.total/Cho lesterol in HDL [Mass ratio] 1.84 {ratio} [facility] Serum globulin measurementOr dered By: Missael Lomeli on 10-10-2024 Globulin (S) [Mass/Vol] 3.7 g/dL 2.2-4.2 [facility] Serum or plasma alanine burnette otransferase (ALT) measurementOrdered By: Missael Lomeli on 10-10-2024 ALT [Catalytic activity/Vol] 23 U/L <35 [facility] Serum or plasma albumin kim urement (mass/volume)Ordered By: Missael Lomeli on 10-10-2024 Albumin [Mass/Vol] 3.5 g/dL 3.4-4.8 [facility] Serum or plasma albumin/glob ulin mass ratioOrdered By: Missael Lomeli on 10-10-2024 Albumin/Globulin [Mass ratio] 1.0 {ratio} 0.9-2.4 [facility] Serum or plasma alkaline regina sphatase measurementOrdered By: Missael Lomeli on 10-10-2024 ALP [Catalytic activity/Vol] 122 U/L High 35-104 [facility] Serum or plasma cholesterol in HDL measurement (mass/volume)Ordered By: Missael Lomeli on 10-10-2024 Cholesterol in HDL [Mass/Vol] 56 mg/dL >40 [facility] Comment on above: National Cholesterol Education Program (NCEP) guidelines:<40 mg/dL: Low HDL-cholesterol (major risk factor for CHD)>= 60 mg/dL: High HDL-cholesterol (negative risk factor for CHD)HDL-cholesterol is affected by a number of factors, e.g. smoking, exercise, hormones, sex and age. Serum or plasma cholesterol measurement (mass/volume)Ordered By: Missael Lomeli on 10-10-2024 Cholesterol [Mass/Vol] 103 mg/dL <201 [facility] Comment on above: Cholesterol level, D esirable <200 mg/dLBorderline high cholesterol 200-239 mg/dLHigh cholesterol >=240 mg/dLRecommendations of the NCEP Adult Treatment Panel for the following risk-cutoff thresholds for the [place] population. Total proteinOrdered By: Enrrique Lomeli on 10-10-2024 Protein [Mass/Vol] 7.2 g/dL 5.9-8.4 [facility] Triglycerides measurementOrd ered By: Missael Lomeli on 10-10-2024 Triglyceride [Mass/Vol] 82 mg/dL <199 [facility] Comment on above: The drugs N-Acetylcy steine and Metamizole may falsely depress this assay. Normal range: <150 mg/dLBorderline High: 150-199 mg/dLHigh: 200-499 mg/dLVery High: >500 mg/dL Absolute lymphocyte countOrd ered By: Shayna Malhotra on 10-09-2024 Lymphocytes Auto (Unsp spec) [#/Vol] 0.97 10*3/uL 0.83-4.51 [facility] Absolute neutrophil countOrd ered By: Dany Richardson on 10-09-2024 Neutrophils (Bld) [#/Vol] 4.9 10*3/uL 2.0-7.7 [facility] Absolute neutrophil countOrd ered By: Shayna Malhotra on 10-09-2024 Neutrophils (Bld) [#/Vol] 4.4 10*3/uL 2.0-7.7 [facility] Alcohol, Blood (Medical)-Ser umon 10-09-2024 SERUM ETOH < 10.1 Normal <=10.0 [facility] Comment on above: Result Comment: This test is for medical purposes only. The legal definition of intoxication varies according to local law. Performed By: #### L 500.4050, L506.1000, L100.0100, L501.9985 #### [facility] [place], [address] Amorphous sediment detection in urine sediment by light microscopyOrdered By: Dany Richardson on 10-09-2024 Amorphous sediment LM Ql (Urine sed) 1+ [facility] Amphetamine detection with 1 000 ng/mL as cutoffOrdered By: Missael Lomeli on 10-09-2024 Amphetamines Screen method >1000 ng/mL Ql (U) Negative < 200 ng/mL [facility] Anion gap in Serum or Plasma Ordered By: Dany Richardson on 10-09-2024 Anion gap [Moles/Vol] 11 mmol/L 10-18 [facility] Anion gap in Serum or Plasma Ordered By: Shayna Malhotra on 10-09-2024 Anion gap [Moles/Vol] 12 mmol/L 10-18 [facility] Automated lymphocyte count a s percentage of total leukocytesOrdered By: Shayna Malhotra on 10-09-2024 Lymphocytes/100 WBC Auto (Unsp spec) 16.1 % Low 19-41 [facility] BUN/creatinine ratioOrdered By: Dany Richardson on 10-09-2024 Urea nitrogen/Creatinine [Mass ratio] 26.6 mg/mg High 10-20 [facility] BUN/creatinine ratioOrdered By: Shayna Malhotra on 10-09-2024 Urea nitrogen/Creatinine [Mass ratio] 25.9 mg/mg High 10-20 [facility] Basophil percentageOrdered B y: Dany Richardson on 10-09-2024 Basophils/100 WBC (Bld) 0.4 % 0-1 [facility] Basophil percentageOrdered B y: Shayna Malhotra on 10-09-2024 Basophils/100 WBC (Bld) 0.5 % 0-1 [facility] Bilirubin Test strip Ql (U)O rdered By: Dany Richardson on 10-09-2024 Bilirubin Ql (U) Negative Negative [facility] Bilirubin, totalOrdered By: Dany Richardson on 10-09-2024 Bilirubin [Mass/Vol] 0.67 mg/dL 0.00-1.30 [facility] Bilirubin, totalOrdered By: Shayna Malhotra on 10-09-2024 Bilirubin [Mass/Vol] 0.62 mg/dL 0.00-1.30 [facility] CBC W/Diff, Automatedon Absolute Lymph 1.11 X10 3/uL Normal 0.83-4.51 [facility] Comment on above: Performed By: #### L 506.1000, L100.0100, L501.9985, L500.4050 #### [facility] [address] [place], [address] Absolute Neut 4.9 X10 3/uL Normal 2.0-7.7 [facility] Comment on above: Performed By: #### L 506.1000, L100.0100, L501.9985, L500.4050 #### [facility] [address] [place], [address] Basophils/100 WBC (Bld) 0.4 % Normal 0-1 [facility] Comment on above: Performed By: #### L 506.1000, L100.0100, L501.9985, L500.4050 #### [facility] [address] [place], [address] Eosinophils/100 WBC (Bld) 2.5 % Normal 0-5 [facility] Comment on above: Performed By: #### L 506.1000, L100.0100, L501.9985, L500.4050 #### [facility] [address] [place], [address] Erythrocyte distribution width (RBC) [Ratio] 15.9 % High 11.6-14.6 [facility] Comment on above: Performed By: #### L 506.1000, L100.0100, L501.9985, L500.4050 #### [facility] [address] [place], [address] Hematocrit (Bld) [Volume fraction] 40.8 % Normal 37-47 [facility] Comment on above: Performed By: #### L 506.1000, L100.0100, L501.9985, L500.4050 #### [facility] [address] [place], [address] Hemoglobin (Bld) [Mass/Vol] 13.5 g/dL Normal 12.0-15.0 [facility] Comment on above: Performed By: #### L 506.1000, L100.0100, L501.9985, L500.4050 #### [facility] [address] [place], [address] IG% 0.400 Normal 0.0-0.9 [facility] Comment on above: Result Comment: IG% - Immature Granulocytes (promyelocytes, myelocytes and metamyelocytes) > 1% indicates that a LEFT SHIFT is Present. Performed By: #### L 506.1000, L100.0100, L501.9985, L500.4050 #### [facility] [address] [place], [address] Lymphocytes/100 WBC (Bld) 16.3 % Low 19-41 [facility] Comment on above: Performed By: #### L 506.1000, L100.0100, L501.9985, L500.4050 #### [facility] [address] [place], [address] MCH (RBC) [Entitic mass] 28.9 pg Normal 27.0-32.0 [facility] Comment on above: Performed By: #### L 506.1000, L100.0100, L501.9985, L500.4050 #### [facility] [address] [place], [address] MCHC (RBC) [Mass/Vol] 33.1 g/dL Normal 32-36 [facility] Comment on above: Performed By: #### L 506.1000, L100.0100, L501.9985, L500.4050 #### [facility] [address] [place], [address] MCV (RBC) [Entitic vol] 87.4 fL Normal 81-99 [facility] Comment on above: Performed By: #### L 506.1000, L100.0100, L501.9985, L500.4050 #### [facility] [address] [place], [address] Monocytes/100 WBC (Bld) 8.3 % Normal 0-10 [facility] Comment on above: Performed By: #### L 506.1000, L100.0100, L501.9985, L500.4050 #### [facility] [address] [place], [address] Neutrophils/100 WBC (Bld) 72.1 % High 47-70 [facility] Comment on above: Performed By: #### L 506.1000, L100.0100, L501.9985, L500.4050 #### [facility] [address] [place], [address] Nucleated RBC (Bld) [#/Vol] 0 10*3/uL Normal 0-5 [facility] Comment on above: Performed By: #### L 506.1000, L100.0100, L501.9985, L500.4050 #### [facility] [address] [place], [address] Platelet mean volume (Bld) [Entitic vol] 11.8 fL Normal 6.2-12.0 [facility] Comment on above: Performed By: #### L 506.1000, L100.0100, L501.9985, L500.4050 #### [facility] [address] [place], [address] Platelets (Bld) [#/Vol] 106 10*3/uL Low 150-450 [facility] Comment on above: Performed By: #### L 506.1000, L100.0100, L501.9985, L500.4050 #### [facility] [address] [place], [address] RBC (Bld) [#/Vol] 4.67 10*6/uL Normal 4.2-5.4 [facility] Comment on above: Performed By: #### L 506.1000, L100.0100, L501.9985, L500.4050 #### [facility] [address] [place], [address] RDW SD 51.0 fl High 35.1-43.9 [facility] Comment on above: Performed By: #### L 506.1000, L100.0100, L501.9985, L500.4050 #### [facility] [address] [place], [address] WBC (Bld) [#/Vol] 6.8 10*3/uL Normal 4.4-11.0 [facility] Comment on above: Performed By: #### L 506.1000, L100.0100, L501.9985, L500.4050 #### [facility] [address] [place], [address] Absolute Lymph 0.97 X10 3/uL Normal 0.83-4.51 [facility] Comment on above: Order Comment: 134 Performed By: #### L 500.4050, L506.1000, L100.0100, L501.9985 #### [facility] [address] [place], [address] Absolute Neut 4.4 X10 3/uL Normal 2.0-7.7 [facility] Comment on above: Order Comment: 134 Performed By: #### L 500.4050, L506.1000, L100.0100, L501.9985 #### [facility] [address] [place], [address] Basophils/100 WBC (Bld) 0.5 % Normal 0-1 [facility] Comment on above: Order Comment: 134 Performed By: #### L 500.4050, L506.1000, L100.0100, L501.9985 #### [facility] [address] [place], [address] Eosinophils/100 WBC (Bld) 1.2 % Normal 0-5 [facility] Comment on above: Order Comment: 134 Performed By: #### L 500.4050, L506.1000, L100.0100, L501.9985 #### [facility] [address] [place], [address] Erythrocyte distribution width (RBC) [Ratio] 15.7 % High 11.6-14.6 [facility] Comment on above: Order Comment: 134 Performed By: #### L 500.4050, L506.1000, L100.0100, L501.9985 #### [facility] [address] [place], [address] Hematocrit (Bld) [Volume fraction] 40.9 % Normal 37-47 [facility] Comment on above: Order Comment: 134 Performed By: #### L 500.4050, L506.1000, L100.0100, L501.9985 #### [facility] [address] [place], [address] Hemoglobin (Bld) [Mass/Vol] 13.5 g/dL Normal 12.0-15.0 [facility] Comment on above: Order Comment: 134 Performed By: #### L 500.4050, L506.1000, L100.0100, L501.9985 #### [facility] [address] [place], [address] IG% 0.300 Normal 0.0-0.9 [facility] Comment on above: Order Comment: 134 Result Comment: IG% - Immature Granulocytes (promyelocytes, myelocytes and metamyelocytes) > 1% indicates that a LEFT SHIFT is Present. Performed By: #### L 500.4050, L506.1000, L100.0100, L501.9985 #### [facility] [address] [place], [address] Lymphocytes/100 WBC (Bld) 16.1 % Low 19-41 [facility] Comment on above: Order Comment: 134 Performed By: #### L 500.4050, L506.1000, L100.0100, L501.9985 #### [facility] [address] [place], [address] MCH (RBC) [Entitic mass] 28.8 pg Normal 27.0-32.0 [facility] Comment on above: Order Comment: 134 Performed By: #### L 500.4050, L506.1000, L100.0100, L501.9985 #### [facility] [address] [place], [address] MCHC (RBC) [Mass/Vol] 33.0 g/dL Normal 32-36 [facility] Comment on above: Order Comment: 134 Performed By: #### L 500.4050, L506.1000, L100.0100, L501.9985 #### [facility] [address] [place], [address] MCV (RBC) [Entitic vol] 87.4 fL Normal 81-99 [facility] Comment on above: Order Comment: 134 Performed By: #### L 500.4050, L506.1000, L100.0100, L501.9985 #### [facility] [address] [place], [address] Monocytes/100 WBC (Bld) 8.4 % Normal 0-10 [facility] Comment on above: Order Comment: 134 Performed By: #### L 500.4050, L506.1000, L100.0100, L501.9985 #### [facility] [address] [place], [address] Neutrophils/100 WBC (Bld) 73.5 % High 47-70 [facility] Comment on above: Order Comment: 134 Performed By: #### L 500.4050, L506.1000, L100.0100, L501.9985 #### [facility] [address] [place], [address] Nucleated RBC (Bld) [#/Vol] 0 10*3/uL Normal 0-5 [facility] Comment on above: Order Comment: 134 Performed By: #### L 500.4050, L506.1000, L100.0100, L501.9985 #### [facility] [address] [place], [address] Platelet mean volume (Bld) [Entitic vol] 10.8 fL Normal 6.2-12.0 [facility] Comment on above: Order Comment: 134 Performed By: #### L 500.4050, L506.1000, L100.0100, L501.9985 #### [facility] [address] [place], [address] Platelets (Bld) [#/Vol] 107 10*3/uL Low 150-450 [facility] Comment on above: Order Comment: 134 Performed By: #### L 500.4050, L506.1000, L100.0100, L501.9985 #### [facility] [address] [place], [address] RBC (Bld) [#/Vol] 4.68 10*6/uL Normal 4.2-5.4 [facility] Comment on above: Order Comment: 134 Performed By: #### L 500.4050, L506.1000, L100.0100, L501.9985 #### [facility] [address] [place], [address] RDW SD 50.2 fl High 35.1-43.9 [facility] Comment on above: Order Comment: 134 Performed By: #### L 500.4050, L506.1000, L100.0100, L501.9985 #### [facility] [address] [place], [address] WBC (Bld) [#/Vol] 6.0 10*3/uL Normal 4.4-11.0 [facility] Comment on above: Order Comment: 134 Performed By: #### L 500.4050, L506.1000, L100.0100, L501.9985 #### [facility] [address] [place], [address] CRPon 10-09-2024 C-REACTIVE PROT 5.92 mg/L High 0.0-3.0 [facility] Comment on above: Performed By: #### L 500.4050, L506.1000, L100.0100, L501.9985 #### [facility] [address] [place], [address] Carbon dioxide, total [Moles /volume] in Central venous bloodOrdered By: Dany Richardson on 10-09-2024 CO2 [Moles/Vol] 21.0 mmol/L 21.0-32.0 [facility] Carbon dioxide, total [Moles /volume] in Central venous bloodOrdered By: Shayna Malhotra on 10-09-2024 CO2 [Moles/Vol] 22.6 mmol/L 21.0-32.0 [facility] Chloride assayOrdered By: Nolan Richardson on 10-09-2024 Chloride [Moles/Vol] 106 mmol/L 98-108 [facility] Chloride assayOrdered By: Maryanne Malhotra on 10-09-2024 Chloride [Moles/Vol] 104 mmol/L 98-108 [facility] Comprehensive Metabolic Prof ilon 10-09-2024 Albumin [Mass/Vol] 3.8 g/dL Normal 3.4-4.8 [facility] Comment on above: Performed By: #### L 506.1000, L100.0100, L501.9985, L500.4050 #### [facility] [address] [place], [address] Albumin/Globulin [Mass ratio] 0.8 {ratio} Low 0.9-2.4 [facility] Comment on above: Performed By: #### L 506.1000, L100.0100, L501.9985, L500.4050 #### [facility] [address] [place], [address] ALK PHOS 135 U/L High 35-104 [facility] Comment on above: Performed By: #### L 506.1000, L100.0100, L501.9985, L500.4050 #### [facility] [address] [place], [address] ALT [Catalytic activity/Vol] 23 U/L Normal <=34 [facility] Comment on above: Performed By: #### L 506.1000, L100.0100, L501.9985, L500.4050 #### [facility] [address] [place], [address] AST [Catalytic activity/Vol] 40 U/L High <=31 [facility] Comment on above: Result Comment: Hemo lysis present, Results??could be affected. ?? Performed By: #### L 506.1000, L100.0100, L501.9985, L500.4050 #### [facility] [address] [place], [address] Bilirubin [Mass/Vol] 0.67 mg/dL Normal 0.00-1.30 [facility] Comment on above: Performed By: #### L 506.1000, L100.0100, L501.9985, L500.4050 #### [facility] [address] [place], [address] BUN/CRE 26.6 RATIO High 10-20 [facility] Comment on above: Performed By: #### L 506.1000, L100.0100, L501.9985, L500.4050 #### [facility] [address] [place], [address] Calcium [Mass/Vol] 9.7 mg/dL Normal 7.6-11.0 [facility] Comment on above: Performed By: #### L 506.1000, L100.0100, L501.9985, L500.4050 #### [facility] [address] [place], [address] Chloride [Moles/Vol] 106 mmol/L Normal 98-108 [facility] Comment on above: Performed By: #### L 506.1000, L100.0100, L501.9985, L500.4050 #### [facility] [address] [place], [address] CO2 [Moles/Vol] 21.0 mmol/L Normal 21.0-32.0 [facility] Comment on above: Performed By: #### L 506.1000, L100.0100, L501.9985, L500.4050 #### [facility] [address] [place], [address] Creatinine [Mass/Vol] 0.88 mg/dL Normal 0.70-1.20 [facility] Comment on above: Performed By: #### L 506.1000, L100.0100, L501.9985, L500.4050 #### [facility] [address] [place], [address] ECRCL 81.27 ml/min Normal 50-250 [facility] Comment on above: Performed By: #### L 506.1000, L100.0100, L501.9985, L500.4050 #### [facility] [address] [place], [address] GAP 11 Normal 5-15 [facility] Comment on above: Performed By: #### L 506.1000, L100.0100, L501.9985, L500.4050 #### [facility] [address] [place], [address] GFR/1.73 sq M.predicted among non-blacks MDRD (S/P/Bld) [Vol rate/Area] 70 mL/min/{1.73_m2} Normal >60 [facility] Comment on above: Result Comment: mL/m in/1.73m2 CKD-EPI Creatinine Equation (2020) Performed By: #### L 506.1000, L100.0100, L501.9985, L500.4050 #### [facility] [address] [place], [address] Globulin (S) [Mass/Vol] 4.6 g/dL High 2.2-4.2 [facility] Comment on above: Performed By: #### L 506.1000, L100.0100, L501.9985, L500.4050 #### [facility] [address] [place], [address] Glucose [Mass/Vol] 138 mg/dL High 70-99 [facility] Comment on above: Performed By: #### L 506.1000, L100.0100, L501.9985, L500.4050 #### [facility] [address] [place], [address] Potassium [Moles/Vol] 4.5 mmol/L Normal 3.3-5.1 [facility] Comment on above: Result Comment: Hemo lysis present, Results??could be affected. ?? Performed By: #### L 506.1000, L100.0100, L501.9985, L500.4050 #### [facility] [address] [place], [address] Sodium [Moles/Vol] 138 mmol/L Normal 133-145 [facility] Comment on above: Performed By: #### L 506.1000, L100.0100, L501.9985, L500.4050 #### [facility] [address] [place], [address] T PROT 8.4 g/dL Normal 5.9-8.4 [facility] Comment on above: Performed By: #### L 506.1000, L100.0100, L501.9985, L500.4050 #### [facility] [address] [place], [address] Urea nitrogen [Mass/Vol] 23 mg/dL High 4-19 [facility] Comment on above: Performed By: #### L 506.1000, L100.0100, L501.9985, L500.4050 #### [facility] [address] [place], [address] Albumin [Mass/Vol] 4.0 g/dL Normal 3.4-4.8 [facility] Comment on above: Order Comment: 134 Performed By: #### L 500.4050, L506.1000, L100.0100, L501.9985 #### [facility] [address] [place], [address] Albumin/Globulin [Mass ratio] 0.8 {ratio} Low 0.9-2.4 [facility] Comment on above: Order Comment: 134 Performed By: #### L 500.4050, L506.1000, L100.0100, L501.9985 #### [facility] [address] [place], [address] ALK PHOS 148 U/L High 35-104 [facility] Comment on above: Order Comment: 134 Performed By: #### L 500.4050, L506.1000, L100.0100, L501.9985 #### [facility] [address] [place], [address] ALT [Catalytic activity/Vol] 26 U/L Normal <=34 [facility] Comment on above: Order Comment: 134 Performed By: #### L 500.4050, L506.1000, L100.0100, L501.9985 #### [facility] [address] [place], [address] AST [Catalytic activity/Vol] 37 U/L High <=31 [facility] Comment on above: Order Comment: 134 Performed By: #### L 500.4050, L506.1000, L100.0100, L501.9985 #### [facility] [address] [place], [address] Bilirubin [Mass/Vol] 0.62 mg/dL Normal 0.00-1.30 [facility] Comment on above: Order Comment: 134 Performed By: #### L 500.4050, L506.1000, L100.0100, L501.9985 #### [facility] [address] [place], [address] BUN/CRE 25.9 RATIO High 10-20 [facility] Comment on above: Order Comment: 134 Performed By: #### L 500.4050, L506.1000, L100.0100, L501.9985 #### [facility] [address] [place], [address] Calcium [Mass/Vol] 9.6 mg/dL Normal 7.6-11.0 [facility] Comment on above: Order Comment: 134 Performed By: #### L 500.4050, L506.1000, L100.0100, L501.9985 #### [facility] [address] [place], [address] Chloride [Moles/Vol] 104 mmol/L Normal 98-108 [facility] Comment on above: Order Comment: 134 Performed By: #### L 500.4050, L506.1000, L100.0100, L501.9985 #### [facility] [address] [place], [address] CO2 [Moles/Vol] 22.6 mmol/L Normal 21.0-32.0 [facility] Comment on above: Order Comment: 134 Performed By: #### L 500.4050, L506.1000, L100.0100, L501.9985 #### [facility] [address] [place], [address] Creatinine [Mass/Vol] 0.82 mg/dL Normal 0.70-1.20 [facility] Comment on above: Order Comment: 134 Performed By: #### L 500.4050, L506.1000, L100.0100, L501.9985 #### [facility] [address] [place], [address] GAP 12 Normal 5-15 [facility] Comment on above: Order Comment: 134 Performed By: #### L 500.4050, L506.1000, L100.0100, L501.9985 #### [facility] [address] [place], [address] GFR/1.73 sq M.predicted among non-blacks MDRD (S/P/Bld) [Vol rate/Area] 76 mL/min/{1.73_m2} Normal >60 [facility] Comment on above: Order Comment: 134 Result Comment: mL/m in/1.73m2 CKD-EPI Creatinine Equation (2020) Performed By: #### L 500.4050, L506.1000, L100.0100, L501.9985 #### [facility] [address] [place], [address] Globulin (S) [Mass/Vol] 4.8 g/dL High 2.2-4.2 [facility] Comment on above: Order Comment: 134 Performed By: #### L 500.4050, L506.1000, L100.0100, L501.9985 #### [facility] [address] [place], [address] Glucose [Mass/Vol] 173 mg/dL High 70-99 [facility] Comment on above: Order Comment: 134 Performed By: #### L 500.4050, L506.1000, L100.0100, L501.9985 #### [facility] [address] [place], [address] Potassium [Moles/Vol] 4.2 mmol/L Normal 3.3-5.1 [facility] Comment on above: Order Comment: 134 Performed By: #### L 500.4050, L506.1000, L100.0100, L501.9985 #### [facility] [address] [place], [address] Sodium [Moles/Vol] 138 mmol/L Normal 133-145 [facility] Comment on above: Order Comment: 134 Performed By: #### L 500.4050, L506.1000, L100.0100, L501.9985 #### [facility] [address] [place], [address] T PROT 8.9 g/dL High 5.9-8.4 [facility] Comment on above: Order Comment: 134 Performed By: #### L 500.4050, L506.1000, L100.0100, L501.9985 #### [facility] [address] [place], [address] Urea nitrogen [Mass/Vol] 21 mg/dL High 4-19 [facility] Comment on above: Order Comment: 134 Performed By: #### L 500.4050, L506.1000, L100.0100, L501.9985 #### [facility] [address] [place], [address] Emergency Department Summary on 10-09-2024 Emergency Department Summary [facility] Medical Records Department [address] [place] [address] Emergency Department Summary 10/09/24 MR#: [id number] Acct: [id number] Name: VIDA NINA Rep #: [id number] : 1950 73 From: Dany Richardson MD PCP: Dr. Shayna Malhotra MD Status:REG ER Location: ED HPI History of Present Illness Chief Complaint: Lower Extremity Injury Narrative Narrative: 73-year-old female states that she had pins placed in her left foot approximately 15 years ago [place] after breaking her heel. She is currently in [facility]. She states for the last 2 weeks she has been having increasing foot pain. She states that on Tuesday, probably of the last week, she had x-rays obtained at the [facility]. She went and saw Dr. Shayna Malhotra on Tuesday, but he did not have the x-ray results. She states that she is having a lot of pain in her left heel that is worse with weightbearing and walking and palpation. She states that it feels as if she is having a baby out of her left heel. [facility] Medical History Obesity Anxiety Cancer Anxiety Diabetes [...] History powder primary doctor blood sugar diagnostic ([facility] [place] 11/23/21 Unknown History Lite Strips) blood-glucose meter ([facility] [place] 11/23/21 Unknown History Lite Meter kit) lancets 28 gauge ([facility] [place] 11/23/21 Unknown History Lancets) nystatin 100,000 unit/gram topical 1 applic topical TID #0 grams Unknown Rx powder ([facility]) quetiapine 100 mg tablet 300 [...] ROS Narrative (more content not included)... Normal [facility] Eosinophil percentageOrdered By: Dany Richardson on 10-09-2024 Eosinophils/100 WBC (Bld) 2.5 % 0-5 [facility] Eosinophil percentageOrdered By: Shayna Malhotra on 10-09-2024 Eosinophils/100 WBC (Bld) 1.2 % 0-5 [facility] Epithelial cells.squamous LM Ql (Urine sed)Ordered By: Dany Richardson on 10-09-2024 Epithelial cells.squamous LM.HPF (Urine sed) [#/Area] 0 /[HPF] 5-10 [facility] Erythrocyte Sed Rateon 10-09 SED RATE 49 mm/hr High 0-30 [facility] Comment on above: Performed By: #### L 500.4050, L506.1000, L100.0100, L501.9985 #### [facility] [address] [place], [address] Erythrocyte distribution wid th (RBC) [Ratio]Ordered By: Dany Richardson on 10-09-2024 Erythrocyte distribution width (RBC) [Entitic vol] 51.0 fL High 35.1-43.9 [facility] Erythrocyte distribution wid th (RBC) [Ratio]Ordered By: Shayna Malhotra on 10-09-2024 Erythrocyte distribution width (RBC) [Entitic vol] 50.2 fL High 35.1-43.9 [facility] Erythrocyte distribution wid th ratioOrdered By: Dany Richardson on 10-09-2024 Erythrocyte distribution width (RBC) [Ratio] 15.9 % High 11.6-14.6 [facility] Erythrocyte distribution wid th ratioOrdered By: Shayna Malhotra on 10-09-2024 Erythrocyte distribution width (RBC) [Ratio] 15.7 % High 11.6-14.6 [facility] Erythrocyte distribution wid th standard deviationOrdered By: Shayna Malhotra on 10-09-2024 Erythrocyte distribution width (RBC) [Ratio] 50.2 fl High 35.1-43.9 [facility] Erythrocyte sedimentation ra teOrdered By: Missael Lomeli on 10-09-2024 ESR (Bld) [Velocity] 49 mm/h High 0-30 [facility] Estimation of creatinine silvana aranceOrdered By: Dany Richardson on 10-09-2024 Estimated Creatinine Clearance Calc 81.27 ml/min 50-250 [facility] Extremity Lower without Cont raon 10-09-2024 Extremity Lower without Contra [facility] [address] [place], [place] [address] Extremity Lower without Contra MR#: [id number] Acct: [id number] Name: VIDA NINA Rep #: [id number] : 1950 F 73 From: Saul Sanchez MD PCP: Dr. Shayna Malhotra MD Status: ADM IN Study: Extremity Lower without Contra Date of Exam: 0 10/09/24 Exam# [id number] Ordering Dr: Missael Hernandez DO PROCEDURE: EXTREMITY [...] Hernandez at 2:20 a.m. 10/10/2024 Reading Location: [facility] CC: Dr. Missael Hernandez DO; Dr. Shayna Malhotra MD Dirt Contractor: Signed Normal [facility] Foot min 3 Viewson Foot min 3 Views [facility] [address] [place], [place] [address] Foot min 3 Views MR#: [id number] Acct: [id number] Name: VIDA NINA Rep #: [id number] : 1950 F 73 From: Alok Jiménez MD PCP: Dr. Shayna Malhotra MD Status: REG ER Study: Foot min 3 Views Date of Exam: 10/09/24 Exam# [id number] Ordering Dr: Dany Richardson MD EXAM: LEFT [...] Dany Richardson MD; Dr. Shayna Malhotra MD Dirt Contractor: Signed Normal [facility] GFR/1.73 sq M.predicted saida g non-blacks MDRD (S/P/Bld) [Vol rate/Area]Ordered By: Dany Richardson on 10-09-2024 Estimated GFR (MDRD) Non-Af Amer 70 >60 [facility] Comment on above: mL/min/1.73m2 CKD-EP I Creatinine Equation (2020) GFR/1.73 sq M.predicted saida g non-blacks MDRD (S/P/Bld) [Vol rate/Area]Ordered By: Shayna Malhotra on 10-09-2024 Estimated GFR (MDRD) Non-Af Amer 76 >60 [facility] Comment on above: mL/min/1.73m2 CKD-EP I Creatinine Equation (2020) Glomerular filtration rate ( GFR) estimation/1.73 sq m using serum, plasma, or whole bOrdered By: Shayna Malhotra on 10-09-2024 GFR/1.73 sq M.predicted among non-blacks MDRD (S/P/Bld) [Vol rate/Area] 76 mL/min/{1.73_m2} >60 [facility] Comment on above: mL/min/1.73m2 CKD-EP I Creatinine Equation (2020) Glucose Ql (U)Ordered By: Nolan Richardson on 10-09-2024 Glucose (U) [Mass/Vol] 1000 mg/dL High Normal [facility] H AND P Exam - Hospitaliston 10-09-2024 H&P Exam - Hospitalist [facility] Medical Records Department [address] [place] [address] H P Exam - Hospitalist 10/09/242118 MR#: [id number] Acct: [id number] Name: VIDA NINA Rep #: [id number] : 1950 73 From: Missael Hernandez DO PCP: Dr. Shayna Malhotra MD Status:ADM IN Location: [facility] [id number] HPI - General General Date of Admission: [...] is currently residing in assisted living at [facility] presents to [facility] ER complaining of worsening Left heel pain with patient notably having poor hygiene and unable to care for herself. Ms. Nina reports her acute symptoms began 2 weeks prior to admission with increasing pain from her Left heel. She states the pain is severe and she feels like she is, having a baby out of her Left heel". She states her pain is made worse [...] skin folds and extremely poor hygiene with MRI TECHNOLOGIST having social work consulted and patient felt [...] is expected to extend beyond 2 midnights. [facility] Medical History Obesity Anxiety Cancer Anxiety Diabetes [...] doctor blood sugar diagnostic (FreeStyle 11/23/21 Unknown History Lite Strips) blood-glucose meter (FreeStyle 11/23/21 Unknown History Lite Meter kit) lancets 28 gauge (FreeStyle 11/23/21 Unknown History Lancets) nystatin 100,000 unit/gram topical 1 applic topical TID #0 grams Unknown Rx powder ([facility]) quetiapine 100 mg tablet 300 mg (3 x 100 mg) PO BID #0 tabs 11/24/21 Unknown Rx aspirin 81 mg chewable tablet 81 mg PO DAILY 05/06/22 Unknown Hi (more content not included)... Normal [facility] Hematocrit Auto (Bld) [Volum e fraction]Ordered By: Dany Richardson on 10-09-2024 Hematocrit (Bld) [Volume fraction] 40.8 % [address] [place] [address] Hematocrit Auto (Bld) [Volum e fraction]Ordered By: Shayna aMlhotra on 10-09-2024 Hematocrit (Bld) [Volume fraction] 40.9 % [facility] Hemoglobin A1con 10-09-2024 HbA1c (Bld) [Mass fraction] 7.2 % High <=5.6 [facility] Comment on above: Order Comment: 134 Result Comment: Norm al < 5.7 % Prediabetic 5.7 - 6.4 % Diabetic >or= 6.5 % Please note range changes. Performed By: #### L 500.4050, L506.1000, L100.0100, L501.9985 #### [facility] [place], [place], [id number] Hemoglobin A1c percentageOrd ered By: Missael Lomeli on 10-09-2024 HbA1c (Bld) [Mass fraction] 7.2 % High <5.7 [facility] Comment on above: Normal < 5.7 % Predi abetic 5.7 - 6.4 % Diabetic >or= 6.5 % Please note range changes. Hemoglobin A1c percentageOrd ered By: Shayna Malhotra on 10-09-2024 HbA1c (Bld) [Mass fraction] 7.2 % High <5.7 [facility] Comment on above: Normal < 5.7 % Predi abetic 5.7 - 6.4 % Diabetic >or= 6.5 % Please note range changes. Hemoglobin measurementOrdere d By: Dany Richardson on 10-09-2024 Hemoglobin (Bld) [Mass/Vol] 13.5 g/dL 12.0-15.0 [facility] Hemoglobin measurementOrdere d By: Shayna Malhotra on 10-09-2024 Hemoglobin (Bld) [Mass/Vol] 13.5 g/dL 12.0-15.0 [facility] Immature granulocytes/100 WB C Auto (Bld)Ordered By: Dany Richardson on 10-09-2024 Immature granulocytes/100 WBC (Bld) 0.400 % 0.0-0.9 [facility] Comment on above: IG% - Immature Granu locytes (promyelocytes, myelocytes and metamyelocytes) > 1% indicates that a LEFT SHIFT is Present. Immature granulocytes/100 WB C Auto (Bld)Ordered By: Shayna Malhotra on 10-09-2024 Immature granulocytes/100 WBC (Bld) 0.300 % 0.0-0.9 [facility] Comment on above: IG% - Immature Granu locytes (promyelocytes, myelocytes and metamyelocytes) > 1% indicates that a LEFT SHIFT is Present. Ketones Test strip Ql (U)Ord ered By: Dany Richardson on 10-09-2024 Ketones Ql (U) Negative Negative [facility] Laboratory - Chemistry and C hemistry - challengeOrdered By: Dany Richardson on 10-09-2024 AST [Catalytic activity/Vol] 40 U/L High <32 [facility] Comment on above: Hemolysis present, R esults could be affected. Laboratory - Chemistry and C hemistry - challengeOrdered By: Shayna Malhotra on 10-09-2024 AST [Catalytic activity/Vol] 37 U/L High <32 [facility] Lymphocytes Auto (Unsp spec) [#/Vol]Ordered By: Dany Richardson on 10-09-2024 Lymphocytes (Bld) [#/Vol] 1.11 10*3/uL 0.83-4.51 [facility] Lymphocytes Auto (Unsp spec) [#/Vol]Ordered By: Shayna Malhotra on 10-09-2024 Lymphocytes (Bld) [#/Vol] 0.97 10*3/uL 0.83-4.51 [facility] Lymphocytes/100 WBC Auto (Un sp spec)Ordered By: Dany Richardson on 10-09-2024 Lymphocytes/100 WBC (Bld) 16.3 % Low 19-41 [facility] Lymphocytes/100 WBC Auto (Un sp spec)Ordered By: Shayna Malhotra on 10-09-2024 Lymphocytes/100 WBC (Bld) 16.1 % Low 19-41 [facility] MCV (mean corpuscular volume ) determinationOrdered By: Dany Richardson on 10-09-2024 MCV (RBC) [Entitic vol] 87.4 fL 81-99 [facility] MCV (mean corpuscular volume ) determinationOrdered By: Shayna Malhotra on 10-09-2024 MCV (RBC) [Entitic vol] 87.4 fL 81-99 [facility] Magnesiumon 10-09-2024 Magnesium [Mass/Vol] 2.1 mg/dL Normal 1.5-2.2 [facility] Comment on above: Performed By: #### L 500.4050, L506.1000, L100.0100, L501.9985 #### [facility] [address] [place], [place], [id number] Mean corpuscular hemoglobin (MCH) determinationOrdered By: Dany Richardson on 10-09-2024 MCH (RBC) [Entitic mass] 28.9 pg 27.0-32.0 [facility] Mean corpuscular hemoglobin (MCH) determinationOrdered By: Shayna Malhotra on 10-09-2024 MCH (RBC) [Entitic mass] 28.8 pg 27.0-32.0 [facility] Mean corpuscular hemoglobin concentration (MCHC) determinationOrdered By: Dany Richardson on 10-09-2024 MCHC (RBC) [Mass/Vol] 33.1 g/dL - [facility] Mean corpuscular hemoglobin concentration (MCHC) determinationOrdered By: Shayna Malhotra on 10-09-2024 MCHC (RBC) [Mass/Vol] 33.0 g/dL - [facility] Mean platelet volume determi nationOrdered By: Dany Richardson on 10-09-2024 Platelet mean volume (Bld) [Entitic vol] 11.8 fL 6.2-12.0 [facility] Mean platelet volume determi nationOrdered By: Shayna Malhotra on 10-09-2024 Platelet mean volume (Bld) [Entitic vol] 10.8 fL 6.2-12.0 [facility] Microscopic analysis of urin e for red blood cells (RBC)Ordered By: Dany Richardson on 10-09-2024 Microscopic analysis of urine for red blood cells (RBC) 10-25 SEEN /hpf 0-5 [facility] Urine RBC 10-25 SEEN /hpf 0-5 [facility] Monocyte percentageOrdered B y: Dany Richardson on 10-09-2024 Monocytes/100 WBC (Bld) 8.3 % 0-10 [facility] Monocyte percentageOrdered B y: Shayna Malhotra on 10-09-2024 Monocytes/100 WBC (Bld) 8.4 % 0-10 [facility] Mucus LM Ql (Urine sed)Order ed By: Dany Richardson on 10-09-2024 Mucus Ql (Urine sed) 0 SEEN /hpf [facility] Neutrophil percentageOrdered By: Dany Richardson on 10-09-2024 Neutrophils/100 WBC (Bld) 72.1 % High 47-70 [facility] Neutrophil percentageOrdered By: Shayna Malhotra on 10-09-2024 Neutrophils/100 WBC (Bld) 73.5 % High 47-70 [facility] Nitrite Test strip Ql (U)Ord ered By: Dany Richardson on 10-09-2024 Nitrite Ql (U) Negative Negative [facility] No Panel InformationOrdered By: Missael Lomeli on 10-09-2024 Urine Buprenorphine Qualitative Negative < 200 ng/mL [facility] Urine Oxycodone Screen Negative < 100 ng/mL [facility] Nucleated red blood cell per centageOrdered By: Dany Richardson on 10-09-2024 Nucleated RBC/100 WBC (Bld) [Ratio] 0 % 0-5 [facility] Nucleated red blood cell per centageOrdered By: Shayna Malhotra on 10-09-2024 Nucleated RBC/100 WBC (Bld) [Ratio] 0 % 0-5 [facility] Platelet countOrdered By: Nolan Richardson on 10-09-2024 Platelets (Bld) [#/Vol] 106 10*3/uL Low 150-450 [facility] Platelet countOrdered By: Maryanne Malhotra on 10-09-2024 Platelets (Bld) [#/Vol] 107 10*3/uL Low 150-450 [facility] Potassium (Unsp spec) [Mass/ Vol]Ordered By: Dany Richardson on 10-09-2024 Potassium [Moles/Vol] 4.5 mmol/L 3.3-5.1 [facility] Comment on above: Hemolysis present, R esults could be affected. Potassium (Unsp spec) [Mass/ Vol]Ordered By: Shayna Malhotra on 10-09-2024 Potassium [Moles/Vol] 4.2 mmol/L 3.3-5.1 [facility] Potassium measurement (mass/ volume)Ordered By: Shayna Malhotra on 10-09-2024 Potassium (Unsp spec) [Mass/Vol] 4.2 mmol/L 3.3-5.1 [facility] Protein Test strip Ql (U)Ord ered By: Dany Richardson on 10-09-2024 Protein Ql (U) 30 mg/dl High Negative [facility] Quantitative urine opiates m easurementOrdered By: Missael Lomeli on 10-09-2024 Opiates Ql (U) Negative < 300 ng/mL [facility] RBC Auto (Bld) [#/Vol]Ordere d By: Dany Richardson on 10-09-2024 RBC (Bld) [#/Vol] 4.67 10*6/uL 4.2-5.4 [facility] RBC Auto (Bld) [#/Vol]Ordere d By: Shayna Malhotra on 10-09-2024 RBC (Bld) [#/Vol] 4.68 10*6/uL 4.2-5.4 [facility] Screening urine fentanyl renay surementOrdered By: Missael Lomeli on 10-09-2024 fentaNYL Screen Ql (U) Negative [facility] Serum creatinine measurement (mass/volume)Ordered By: Dany Richardson on 10-09-2024 Creatinine [Mass/Vol] 0.88 mg/dL 0.70-1.20 [facility] Serum creatinine measurement (mass/volume)Ordered By: Shayna Malhotra on 10-09-2024 Creatinine [Mass/Vol] 0.82 mg/dL 0.70-1.20 [facility] Serum globulin measurementOr dered By: Dany Richardson on 10-09-2024 Globulin (S) [Mass/Vol] 4.6 g/dL High 2.2-4.2 [facility] Serum globulin measurementOr dered By: Shayna Malhotra on 10-09-2024 Globulin (S) [Mass/Vol] 4.8 g/dL High 2.2-4.2 [facility] Serum glucose measurement (m ass/volume)Ordered By: Dany Richardson on 10-09-2024 Glucose [Mass/Vol] 138 mg/dL High 70-99 [facility] Serum glucose measurement (m ass/volume)Ordered By: Shayna Malhotra on 10-09-2024 Glucose [Mass/Vol] 173 mg/dL High 70-99 [facility] Serum or plasma C reactive p rotein measurement (mass/volume)Ordered By: Missael Lomeli on 10-09-2024 CRP [Mass/Vol] 5.92 mg/L High 0.0-3.0 [facility] Serum or plasma alanine burnette otransferase (ALT) measurementOrdered By: Dany Richardson on 10-09-2024 ALT [Catalytic activity/Vol] 23 U/L <35 [facility] Serum or plasma alanine burnette otransferase (ALT) measurementOrdered By: Shayna Malhotra on 10-09-2024 ALT [Catalytic activity/Vol] 26 U/L <35 [facility] Serum or plasma albumin kim urement (mass/volume)Ordered By: Dany Richardson on 10-09-2024 Albumin [Mass/Vol] 3.8 g/dL 3.4-4.8 [facility] Serum or plasma albumin kim urement (mass/volume)Ordered By: Shayna Malhotra on 10-09-2024 Albumin [Mass/Vol] 4.0 g/dL 3.4-4.8 [facility] Serum or plasma albumin/glob ulin mass ratioOrdered By: Dany Richardson on 10-09-2024 Albumin/Globulin [Mass ratio] 0.8 {ratio} Low 0.9-2.4 [facility] Serum or plasma albumin/glob ulin mass ratioOrdered By: Shayna Malhotra on 10-09-2024 Albumin/Globulin [Mass ratio] 0.8 {ratio} Low 0.9-2.4 [facility] Serum or plasma alkaline regina sphatase measurementOrdered By: Dany Richardson on 10-09-2024 ALP [Catalytic activity/Vol] 135 U/L High 35-104 [facility] Serum or plasma alkaline regina sphatase measurementOrdered By: Shayna Malhotra on 10-09-2024 ALP [Catalytic activity/Vol] 148 U/L High 35-104 [facility] Serum or plasma calcium kim urement (mass/volume)Ordered By: Dany Richardson on 10-09-2024 Calcium [Mass/Vol] 9.7 mg/dL 7.6-11.0 [facility] Serum or plasma calcium kim urement (mass/volume)Ordered By: Shayna Malhotra on 10-09-2024 Calcium [Mass/Vol] 9.6 mg/dL 7.6-11.0 [facility] Serum or plasma ethanol kim urement (mass/volume)Ordered By: Missael Lomeli on 10-09-2024 Ethanol [Mass/Vol] mg/dL <10.1 [facility] Comment on above: This test is for med ical purposes only. The legal definition of intoxication varies according to local law. Serum or plasma urea nitroge n measurement (mass/volume)Ordered By: Dany Richardson on 10-09-2024 Urea nitrogen [Mass/Vol] 23 mg/dL High 09-22 [facility] Serum or plasma urea nitroge n measurement (mass/volume)Ordered By: Shayna Malhotra on 10-09-2024 Urea nitrogen [Mass/Vol] 21 mg/dL High 09-22 [facility] Sodium levelOrdered By: Dany Richardson on 10-09-2024 Sodium [Moles/Vol] 138 mmol/L 133-145 [facility] Sodium levelOrdered By: Paty Malhotra on 10-09-2024 Sodium [Moles/Vol] 138 mmol/L 133-145 [facility] Squamous epithelial cells de tection in urine sediment by light microscopyOrdered By: Dany Richardson on 10-09-2024 Epithelial cells.squamous LM Ql (Urine sed) 0-5 SEEN /hpf 5-10 [facility] TSH DL <= 0.005 mIU/L QnOrde red By: Missael Lomeli on 10-09-2024 TSH Qn 4.730 uIU/mL High 0.300-4.20 0 [facility] Thyroid Stim Hormone (TSH)on 10-09-2024 TSH 4.730 uIU/mL High 0.300-4.20 0 [facility] Comment on above: Performed By: #### L 500.4050, L506.1000, L100.0100, L501.9985 #### [facility] [address] [place] [address], [address] Total proteinOrdered By: Treasure Richardson on 10-09-2024 Protein [Mass/Vol] 8.4 g/dL 5.9-8.4 [facility] Total proteinOrdered By: Evi Malhotra on 10-09-2024 Protein [Mass/Vol] 8.9 g/dL High 5.9-8.4 [facility] Transitional cells LM Ql (Ur ine sed)Ordered By: Dany Richardson on 10-09-2024 Urine Transitional Epithelial Cells 0-5 SEEN /hpf 0-5 [facility] Transitional cells detection in urine sediment by light microscopyOrdered By: Dany Richardson on 10-09-2024 Transitional cells LM Ql (Urine sed) 0-5 SEEN /hpf 0-5 [facility] Urinalysis, Completeon 10-09 AMORPHOUS 1+ Normal [facility] Comment on above: Order Comment: 134 Performed By: #### L 500.4050, L506.1000, L100.0100, L501.9985 #### [facility] [address] [place], [address] EPI,SQUAMOUS 0-5 SEEN Normal 5-10 [facility] Comment on above: Order Comment: 134 Performed By: #### L 500.4050, L506.1000, L100.0100, L501.9985 #### [facility] [address] [place], [address] EPI,TRANSITION 0-5 SEEN Normal 0-5 [facility] Comment on above: Order Comment: 134 Performed By: #### L 500.4050, L506.1000, L100.0100, L501.9985 #### [facility] [address] [place], [address] RBC 10-25 SEEN Normal 0-5 [facility] Comment on above: Order Comment: 134 Performed By: #### L 500.4050, L506.1000, L100.0100, L501.9985 #### [facility] [address] [place], [address] BACTERIA 4+ /hpf Normal None Seen [facility] Comment on above: Order Comment: 134 Performed By: #### L 500.4050, L506.1000, L100.0100, L501.9985 #### [facility] [address] [place], [address] WBC >100 SEEN Normal 0-5 [facility] Comment on above: Order Comment: 134 Performed By: #### L 500.4050, L506.1000, L100.0100, L501.9985 #### [facility] [address] [place], [address] Mucus Ql (Urine sed) 0 SEEN Normal [facility] Comment on above: Order Comment: 134 Performed By: #### L 500.4050, L506.1000, L100.0100, L501.9985 #### [facility] [address] [place], [address] Urine Drug Screen (VISTA)on 10-09-2024 AMPHETAMINES Negative Normal <1000 ng/mL [facility] Comment on above: Order Comment: 134 Performed By: #### L 500.4050, L506.1000, L100.0100, L501.9985 #### [facility] [address] [place], [address] BARBITIURATES Negative Normal < 200 ng/mL [facility] Comment on above: Order Comment: 134 Performed By: #### L 500.4050, L506.1000, L100.0100, L501.9985 #### [facility] [address] [place], [address] BENZODIAZIPINE Negative Normal < 200 ng/mL [facility] Comment on above: Order Comment: 134 Performed By: #### L 500.4050, L506.1000, L100.0100, L501.9985 #### [facility] [address] [place], [address] BUP Ur Drug Scr Negative Normal < 200 ng/mL [facility] Comment on above: Order Comment: 134 Performed By: #### L 500.4050, L506.1000, L100.0100, L501.9985 #### [facility] [address] [place], [address] COCAINE Negative Normal < 300 ng/mL [facility] Comment on above: Order Comment: 134 Performed By: #### L 500.4050, L506.1000, L100.0100, L501.9985 #### [facility] [address] [place], [address] Fentanyl Negative Normal [facility] Comment on above: Order Comment: 134 Performed By: #### L 500.4050, L506.1000, L100.0100, L501.9985 #### [facility] [address] [place], [address] METHADONE Negative Normal < 300 ng/mL [facility] Comment on above: Order Comment: 134 Performed By: #### L 500.4050, L506.1000, L100.0100, L501.9985 #### [facility] [address] [place], [address] OPIATES Negative Normal < 300 ng/mL [facility] Comment on above: Order Comment: 134 Performed By: #### L 500.4050, L506.1000, L100.0100, L501.9985 #### [facility] [address] [place], [address] OXYCODONE Negative Normal < 100 ng/mL [facility] Comment on above: Order Comment: 134 Performed By: #### L 500.4050, L506.1000, L100.0100, L501.9985 #### [facility] [address] [place], [address] PCP Negative Normal < 25 ng/mL [facility] Comment on above: Order Comment: 134 Performed By: #### L 500.4050, L506.1000, L100.0100, L501.9985 #### [facility] [address] [place], [address] THC Negative Normal < 50 ng/mL [facility] Comment on above: Order Comment: 134 Performed By: #### L 500.4050, L506.1000, L100.0100, L501.9985 #### [facility] [address] [place], [address] Urine benzodiazepine levelOr dered By: Missael Lomeli on 10-09-2024 Benzodiazepines Ql (U) Negative < 200 ng/mL [facility] Urine blood detectionOrdered By: Dany Richardson on 10-09-2024 Urine Occult Blood 150 /ul High Negative [facility] Urine clarityOrdered By: Treasure Richardson on 10-09-2024 Clarity (U) Cloudy Clear [facility] Urine cocaine levelOrdered B y: Missael Lomeli on 10-09-2024 Cocaine Ql (U) Negative < 300 ng/mL [facility] Urine color determinationOrd ered By: Dany Richardson on 10-09-2024 Color (U) Yellow Yellow [facility] Urine jeitq-7-tmvsuesfnpjdqw abinol (THC) measurementOrdered By: Missael Lomeli on 10-09-2024 Cannabinoids Screen Ql (U) Negative < 50 ng/mL [facility] Urine glucose detectionOrder ed By: Dany Richardson on 10-09-2024 Glucose Ql (U) 1000 mg/dl High Normal [facility] Urine leukocyte esterase det ection by dipstickOrdered By: Dany Richardson on 10-09-2024 Leukocyte esterase Test strip Ql (U) 100 /ul High Negative [facility] Urine pHOrdered By: Dany chung on 10-09-2024 pH (U) 5.0 [pH] 5.0 - 8.0 [facility] Urine phencyclidine (PCP) de tectionOrdered By: Missael Lomeli on 10-09-2024 Phencyclidine Ql (U) Negative < 25 ng/mL [facility] Urine sediment bacteria coun t by microscopy (number/high power field)Ordered By: Dany Richardson on 10-09-2024 Bacteria LM.HPF (Urine sed) [#/Area] 4 /[HPF] None Seen [facility] Urine specific gravity measu rementOrdered By: Dany Richardson on 10-09-2024 Specific gravity (U) [Rel density] 1.020 1.002-1.03 0 [facility] Urine urobilinogen measureme ntOrdered By: Dany Richardson on 10-09-2024 Urobilinogen Ql (U) 1 mg/dl High Normal [facility] Urobilinogen Ql (U)Ordered B y: Dany Richardson on 10-09-2024 Urobilinogen (U) [Mass/Vol] 1 mg/dL High Normal [facility] Vitamin B12on 10-09-2024 Cobalamin (Vitamin B12) [Mass/Vol] 379 pg/mL Normal 180-914 [facility] Comment on above: Performed By: #### L 503.0106 #### [facility] [address] [place], [place], [id number] Vitamin B12 ser/plasOrdered By: Missael Lomeli on 10-09-2024 Cobalamin (Vitamin B12) [Mass/Vol] 379 pg/mL 180-914 [facility] Vitamin D, 25-hydroxyOrdered By: Shayna Malhotra on 10-09-2024 Vitamin D 25-Hydroxy 30.0 ng/mL 30-100 [facility] Comment on above: Vitamin D StatusDefi ciency: <20 ng/mL (50nmol/L)Insufficiency: 20-30 ng/mL (50-75 nmol/L)Sufficiency: 30-100 ng/mL (75-250 nmol/L)Toxicity: >100 ng/mL (>250 nmol/L) Vitamin D,25 Hydroxyon 10-09 Vitamin D 25-OH 30.0 ng/mL Normal 30-100 [facility] [facility] Comment on above: Order Comment: 134 Result Comment: Maricarmen min D Status Deficiency: <20 ng/mL (50nmol/L) Insufficiency: 20-30 ng/mL (50-75 nmol/L) Sufficiency: 30-100 ng/mL (75-250 nmol/L) Toxicity: >100 ng/mL (>250 nmol/L) Performed By: #### L 500.4050, L506.1000, L100.0100, L501.9985 #### [facility] [address] [place], [place], [id number] White blood cell (WBC) count Ordered By: Dany Richardson on 10-09-2024 WBC (Bld) [#/Vol] 6.8 10*3/uL 4.4-11.0 [facility] White blood cell (WBC) count Ordered By: Shayna Malhotra on 10-09-2024 WBC (Bld) [#/Vol] 6.0 10*3/uL 4.4-11.0 [facility] White blood cell countOrdere d By: Dany Richardson on 10-09-2024 Urine WBC >100 SEEN /hpf 0-5 [facility] White blood cell count >100 SEEN /hpf 0-5 [facility] CBC W/Diff, Automatedon Absolute Neut Normal 2.0-7.7 [facility] Comment on above: Order Comment: 134 Result Comment: UTO X2 Performed By: #### L 506.1000, L100.0100, L501.9985, L500.4050 #### [facility] [address] [place], [address] HCT Normal 37-47 [facility] Comment on above: Order Comment: 134 Result Comment: UTO X2 Performed By: #### L 506.1000, L100.0100, L501.9985, L500.4050 #### [facility] [address] [place], [address] HGB Normal 12.0-15.0 [facility] Comment on above: Order Comment: 134 Result Comment: UTO X2 Performed By: #### L 506.1000, L100.0100, L501.9985, L500.4050 #### [facility] [address] [place], [address] MCH Normal 27.0-32.0 [facility] Comment on above: Order Comment: 134 Result Comment: UTO X2 Performed By: #### L 506.1000, L100.0100, L501.9985, L500.4050 #### [facility] [address] [place], [address] MCHC Normal 32-36 [facility] Comment on above: Order Comment: 134 Result Comment: UTO X2 Performed By: #### L 506.1000, L100.0100, L501.9985, L500.4050 #### [facility] [address] [place], [address] MCV Normal 81-99 [facility] Comment on above: Order Comment: 134 Result Comment: UTO X2 Performed By: #### L 506.1000, L100.0100, L501.9985, L500.4050 #### [facility] [address] [place], [address] NEUT% Normal 47-70 [facility] Comment on above: Order Comment: 134 Result Comment: UTO X2 Performed By: #### L 506.1000, L100.0100, L501.9985, L500.4050 #### [facility] [address] [place], [address] PLT Normal 150-450 [facility] Comment on above: Order Comment: 134 Result Comment: UTO X2 Performed By: #### L 506.1000, L100.0100, L501.9985, L500.4050 #### [facility] [address] [place], [address] RBC Normal 4.2-5.4 [facility] Comment on above: Order Comment: 134 Result Comment: UTO X2 Performed By: #### L 506.1000, L100.0100, L501.9985, L500.4050 #### [facility] [address] [place], [address] RDW CV Normal 11.6-14.6 [facility] Comment on above: Order Comment: 134 Result Comment: UTO X2 Performed By: #### L 506.1000, L100.0100, L501.9985, L500.4050 #### [facility] [address] [place], [address] RDW SD Normal 35.1-43.9 [facility] Comment on above: Order Comment: 134 Result Comment: UTO X2 Performed By: #### L 506.1000, L100.0100, L501.9985, L500.4050 #### [facility] [address] [place], [address] WBC Normal 4.4-11.0 [facility] Comment on above: Order Comment: 134 Result Comment: UTO X2 Performed By: #### L 506.1000, L100.0100, L501.9985, L500.4050 #### [facility] [address] [place], [address] Comprehensive Metabolic Prof ilon 10-08-2024 ALB Normal 3.4-4.8 [facility] Comment on above: Order Comment: 134 Result Comment: UTO X2 Performed By: #### L 506.1000, L100.0100, L501.9985, L500.4050 #### [facility] [address] [place], [address] ALK PHOS Normal 35-104 [facility] Comment on above: Order Comment: 134 Result Comment: UTO X2 Performed By: #### L 506.1000, L100.0100, L501.9985, L500.4050 #### [facility] [address] [place], [address] ALT Normal <=34 [facility] Comment on above: Order Comment: 134 Result Comment: UTO X2 Performed By: #### L 506.1000, L100.0100, L501.9985, L500.4050 #### [facility] [address] [place], [address] AST Normal <=31 [facility] Comment on above: Order Comment: 134 Result Comment: UTO X2 Performed By: #### L 506.1000, L100.0100, L501.9985, L500.4050 #### [facility] [address] [place], [address] BUN Normal 4-19 [facility] Comment on above: Order Comment: 134 Result Comment: UTO X2 Performed By: #### L 506.1000, L100.0100, L501.9985, L500.4050 #### [facility] [address] [place], [address] BUN/CRE Normal 10-20 [facility] Comment on above: Order Comment: 134 Result Comment: UTO X2 Performed By: #### L 506.1000, L100.0100, L501.9985, L500.4050 #### [facility] [address] [place], [address] Calcium Normal 7.6-11.0 [facility] Comment on above: Order Comment: 134 Result Comment: UTO X2 Performed By: #### L 506.1000, L100.0100, L501.9985, L500.4050 #### [facility] [address] [place], [address] CL Normal 98-108 [facility] Comment on above: Order Comment: 134 Result Comment: UTO X2 Performed By: #### L 506.1000, L100.0100, L501.9985, L500.4050 #### [facility] [address] [place], [address] CO2 Normal 21.0-32.0 [facility] Comment on above: Order Comment: 134 Result Comment: UTO X2 Performed By: #### L 506.1000, L100.0100, L501.9985, L500.4050 #### [facility] [address] [place], [address] CREAT,SERUM Normal 0.70-1.20 [facility] Comment on above: Order Comment: 134 Result Comment: UTO X2 Performed By: #### L 506.1000, L100.0100, L501.9985, L500.4050 #### [facility] [address] [place], [address] eGFR Normal >60 [facility] Comment on above: Order Comment: 134 Result Comment: UTO X2 Performed By: #### L 506.1000, L100.0100, L501.9985, L500.4050 #### [facility] [address] [place], [address] GAP Normal 5-15 [facility] Comment on above: Order Comment: 134 Result Comment: UTO X2 Performed By: #### L 506.1000, L100.0100, L501.9985, L500.4050 #### [facility] [address] [place], [address] GLU Normal 70-99 [facility] Comment on above: Order Comment: 134 Result Comment: UTO X2 Performed By: #### L 506.1000, L100.0100, L501.9985, L500.4050 #### [facility] [address] [place], [address] Potassium Normal 3.3-5.1 [facility] Comment on above: Order Comment: 134 Result Comment: UTO X2 Performed By: #### L 506.1000, L100.0100, L501.9985, L500.4050 #### [facility] [address] [place], [address] T BILI Normal 0.00-1.30 [facility] Comment on above: Order Comment: 134 Result Comment: UTO X2 Performed By: #### L 506.1000, L100.0100, L501.9985, L500.4050 #### [facility] [address] [place], [address] T PROT Normal 5.9-8.4 [facility] Comment on above: Order Comment: 134 Result Comment: UTO X2 Performed By: #### L 506.1000, L100.0100, L501.9985, L500.4050 #### [facility] [address] [place], [address] Comprehensive Metabolic Profil Normal 133-145 [facility] Comment on above: Order Comment: 134 Result Comment: UTO X2 Performed By: #### L 506.1000, L100.0100, L501.9985, L500.4050 #### [facility] [address] [place], [address] 41-HU-Urfsggf DOrdered By: Jean Malhotra on 07-09-2024 Vitamin D 25-Hydroxy 44.8 ng/mL [facility] Comment on above: Vitamin D 25(OH) Sta tus Range Deficiency <20 ng/mL (50nmol/L) Insufficiency 20 - 30 ng/mL (50 - 75 nmol/L) Sufficiency 30 - 100 ng/mL (75 - 250 nmol/L) Toxicity >100 ng/mL (>250 nmol/L) Absolute lymphocyte countOrd ered By: Shayna Malhotra on 07-09-2024 Lymphocytes Auto (Unsp spec) [#/Vol] 0.82 10*3/uL Low 0.83-4.51 [facility] Absolute neutrophil countOrd ered By: Shayna Malhotra on 07-09-2024 Neutrophils (Bld) [#/Vol] 2.6 10*3/uL 2.0-7.7 [facility] Albumin to globulin ratioOrd ered By: Shayna Malhotra on 07-09-2024 Albumin/Globulin [Mass ratio] 0.6 {ratio} Low 0.9-2.4 [facility] Automated lymphocyte count a s percentage of total leukocytesOrdered By: Shayna Malhotra on 07-09-2024 Lymphocytes/100 WBC Auto (Unsp spec) 20.2 % 19-41 [facility] Basophil percentageOrdered B y: Shayna Malhotra on 07-09-2024 Basophils/100 WBC (Bld) 1.0 % 0-1 [facility] Bilirubin, totalOrdered By: Shayna Malhotra on 07-09-2024 Bilirubin [Mass/Vol] 0.70 mg/dL 0.20-1.00 [facility] Comment on above: For patients on eltr ombopag therapy, use of Dimension [place] TBIL is not recommended. Blood urea nitrogen (BUN)/cr eatinine ratioOrdered By: Shayna Malhotra on 07-09-2024 Urea nitrogen/Creatinine [Mass ratio] 22.2 mg/mg High 10-20 [facility] CBC W/Diff, Automatedon Absolute Lymph 0.82 X10 3/uL Low 0.83-4.51 [facility] Comment on above: Order Comment: 134 Performed By: #### L 500.4050, L506.1000, L100.0100, L501.9985 #### [facility] [address] [place], [address] Absolute Neut 2.6 X10 3/uL Normal 2.0-7.7 [facility] Comment on above: Order Comment: 134 Performed By: #### L 500.4050, L506.1000, L100.0100, L501.9985 #### [facility] [address] [place], [address] Basophils/100 WBC (Bld) 1.0 % Normal 0-1 [facility] Comment on above: Order Comment: 134 Performed By: #### L 500.4050, L506.1000, L100.0100, L501.9985 #### [facility] [address] [place], [address] Eosinophils/100 WBC (Bld) 5.9 % High 0-5 [facility] Comment on above: Order Comment: 134 Performed By: #### L 500.4050, L506.1000, L100.0100, L501.9985 #### [facility] [address] [place], [address] Erythrocyte distribution width (RBC) [Ratio] 15.9 % High 11.6-14.6 [facility] Comment on above: Order Comment: 134 Performed By: #### L 500.4050, L506.1000, L100.0100, L501.9985 #### [facility] [address] [place], [address] Hematocrit (Bld) [Volume fraction] 38.2 % Normal 37-47 [facility] Comment on above: Order Comment: 134 Performed By: #### L 500.4050, L506.1000, L100.0100, L501.9985 #### [facility] [address] [place], [address] Hemoglobin (Bld) [Mass/Vol] 12.4 g/dL Normal 12.0-15.0 [facility] Comment on above: Order Comment: 134 Performed By: #### L 500.4050, L506.1000, L100.0100, L501.9985 #### [facility] [address] [place], [address] IG% 0.200 Normal 0.0-0.9 [facility] Comment on above: Order Comment: 134 Result Comment: IG% - Immature Granulocytes (promyelocytes, myelocytes and metamyelocytes) > 1% indicates that a LEFT SHIFT is Present. Performed By: #### L 500.4050, L506.1000, L100.0100, L501.9985 #### [facility] [address] [place], [address] Lymphocytes/100 WBC (Bld) 20.2 % Normal 19-41 [facility] Comment on above: Order Comment: 134 Performed By: #### L 500.4050, L506.1000, L100.0100, L501.9985 #### [facility] [address] [place], [address] MCH (RBC) [Entitic mass] 29.0 pg Normal 27.0-32.0 [facility] Comment on above: Order Comment: 134 Performed By: #### L 500.4050, L506.1000, L100.0100, L501.9985 #### [facility] [address] [place], [address] MCHC (RBC) [Mass/Vol] 32.5 g/dL Normal 32-36 [facility] Comment on above: Order Comment: 134 Performed By: #### L 500.4050, L506.1000, L100.0100, L501.9985 #### [facility] [address] [place], [address] MCV (RBC) [Entitic vol] 89.5 fL Normal 81-99 [facility] Comment on above: Order Comment: 134 Performed By: #### L 500.4050, L506.1000, L100.0100, L501.9985 #### [facility] [address] [place], [address] Monocytes/100 WBC (Bld) 9.6 % Normal 0-10 [facility] Comment on above: Order Comment: 134 Performed By: #### L 500.4050, L506.1000, L100.0100, L501.9985 #### [facility] [address] [place], [address] Neutrophils/100 WBC (Bld) 63.1 % Normal 47-70 [facility] Comment on above: Order Comment: 134 Performed By: #### L 500.4050, L506.1000, L100.0100, L501.9985 #### [facility] [address] [place], [address] Nucleated RBC (Bld) [#/Vol] 0 10*3/uL Normal 0-5 [facility] Comment on above: Order Comment: 134 Performed By: #### L 500.4050, L506.1000, L100.0100, L501.9985 #### [facility] [address] [place], [address] Platelet mean volume (Bld) [Entitic vol] 11.0 fL Normal 6.2-12.0 [facility] Comment on above: Order Comment: 134 Performed By: #### L 500.4050, L506.1000, L100.0100, L501.9985 #### [facility] [address] [place], [address] Platelets (Bld) [#/Vol] 116 10*3/uL Low 150-450 [facility] Comment on above: Order Comment: 134 Performed By: #### L 500.4050, L506.1000, L100.0100, L501.9985 #### [facility] [address] [place], [address] RBC (Bld) [#/Vol] 4.27 10*6/uL Normal 4.2-5.4 [facility] Comment on above: Order Comment: 134 Performed By: #### L 500.4050, L506.1000, L100.0100, L501.9985 #### [facility] [address] [place], [address] RDW SD 52.1 fl High 35.1-43.9 [facility] Comment on above: Order Comment: 134 Performed By: #### L 500.4050, L506.1000, L100.0100, L501.9985 #### [facility] [address] [place], [address] WBC (Bld) [#/Vol] 4.1 10*3/uL Low 4.4-11.0 [facility] Comment on above: Order Comment: 134 Performed By: #### L 500.4050, L506.1000, L100.0100, L501.9985 #### [facility] [address] [place], [address] Carbon dioxide measurementOr dered By: Shayna Malhotra on 07-09-2024 CO2 [Moles/Vol] 25.0 mmol/L 21.0-32.0 [facility] Chloride measurementOrdered By: Shayna Malhotra on 07-09-2024 Chloride [Moles/Vol] 107 mmol/L 98-107 [facility] Comprehensive Metabolic Prof ilon 07-09-2024 Albumin [Mass/Vol] 3.1 g/dL Low 3.2-5.0 [facility] Comment on above: Order Comment: 134 Performed By: #### L 500.4050, L506.1000, L100.0100, L501.9985 #### [facility] [address] [place], [address] Albumin/Globulin [Mass ratio] 0.6 {ratio} Low 0.9-2.4 [facility] Comment on above: Order Comment: 134 Performed By: #### L 500.4050, L506.1000, L100.0100, L501.9985 #### [facility] [address] [place], [address] ALK P 126 U/L High 45-117 [facility] Comment on above: Order Comment: 134 Performed By: #### L 500.4050, L506.1000, L100.0100, L501.9985 #### [facility] [address] [place], [address] ALT [Catalytic activity/Vol] 27 U/L Normal 13-56 [facility] Comment on above: Order Comment: 134 Performed By: #### L 500.4050, L506.1000, L100.0100, L501.9985 #### [facility] [address] [place], [address] AST [Catalytic activity/Vol] 35 U/L Normal 15-37 [facility] Comment on above: Order Comment: 134 Performed By: #### L 500.4050, L506.1000, L100.0100, L501.9985 #### [facility] [address] [place], [address] Bilirubin [Mass/Vol] 0.70 mg/dL Normal 0.20-1.00 [facility] Comment on above: Order Comment: 134 Result Comment: For patients on eltrombopag therapy, use of Dimension [place] TBIL is not recommended. Performed By: #### L 500.4050, L506.1000, L100.0100, L501.9985 #### [facility] [address] [place], [address] BUN/CRE 22.2 RATIO High 10-20 [facility] Comment on above: Order Comment: 134 Performed By: #### L 500.4050, L506.1000, L100.0100, L501.9985 #### [facility] [address] [place], [address] CA,Total 9.3 mg/dL Normal 8.5-10.1 [facility] Comment on above: Order Comment: 134 Performed By: #### L 500.4050, L506.1000, L100.0100, L501.9985 #### [facility] [address] [place], [address] Chloride [Moles/Vol] 107 mmol/L Normal 98-107 [facility] Comment on above: Order Comment: 134 Performed By: #### L 500.4050, L506.1000, L100.0100, L501.9985 #### [facility] [address] [place], [address] CO2 [Moles/Vol] 25.0 mmol/L Normal 21.0-32.0 [facility] Comment on above: Order Comment: 134 Performed By: #### L 500.4050, L506.1000, L100.0100, L501.9985 #### [facility] [address] [place], [address] Creatinine [Mass/Vol] 0.76 mg/dL Normal 0.55-1.02 [facility] Comment on above: Order Comment: 134 Result Comment: The validity of the calculated GFR GFRAA in patients over 70 years has not been determined. Clinical correlation is essential. Performed By: #### L 500.4050, L506.1000, L100.0100, L501.9985 #### [facility] [address] [place], [address] EST GFR - AA 96 mL/min Normal >60 [facility] Comment on above: Order Comment: 134 Result Comment: Afri can Eritrean GFR Calc Performed By: #### L 500.4050, L506.1000, L100.0100, L501.9985 #### [facility] [address] [place], [address] GAP 5 Normal 5-15 [facility] Comment on above: Order Comment: 134 Performed By: #### L 500.4050, L506.1000, L100.0100, L501.9985 #### [facility] [address] [place], [address] GFR/1.73 sq M.predicted among non-blacks MDRD (S/P/Bld) [Vol rate/Area] 79 mL/min/{1.73_m2} Normal >60 [facility] Comment on above: Order Comment: 134 Result Comment: Non- GFR Calc Performed By: #### L 500.4050, L506.1000, L100.0100, L501.9985 #### [facility] [address] [place], [address] Globulin (S) [Mass/Vol] 4.9 g/dL High 2.2-4.2 [facility] Comment on above: Order Comment: 134 Performed By: #### L 500.4050, L506.1000, L100.0100, L501.9985 #### [facility] [address] [place], [address] Glucose [Mass/Vol] 168 mg/dL High 74-106 [facility] Comment on above: Order Comment: 134 Result Comment: Fast ing Glucose result greater than or equal to 126 mg/dL suggests DIABETES MELLITUS per A.D.A. criteria. Performed By: #### L 500.4050, L506.1000, L100.0100, L501.9985 #### [facility] [address] [place], [address] Potassium [Moles/Vol] 4.2 mmol/L Normal 3.5-5.1 [facility] Comment on above: Order Comment: 134 Performed By: #### L 500.4050, L506.1000, L100.0100, L501.9985 #### [facility] [address] [place], [address] Sodium [Moles/Vol] 137 mmol/L Normal 136-145 [facility] Comment on above: Order Comment: 134 Performed By: #### L 500.4050, L506.1000, L100.0100, L501.9985 #### [facility] [address] [place], [address] T PROT 8.0 g/dL Normal 6.4-8.2 [facility] Comment on above: Order Comment: 134 Performed By: #### L 500.4050, L506.1000, L100.0100, L501.9985 #### [facility] [address] [place], [address] Urea nitrogen [Mass/Vol] 17 mg/dL Normal 7-18 [facility] Comment on above: Order Comment: 134 Performed By: #### L 500.4050, L506.1000, L100.0100, L501.9985 #### [facility] [address] [place], [address] Eosinophil percentageOrdered By: Shayna Malhotra on 07-09-2024 Eosinophils/100 WBC (Bld) 5.9 % High 0-5 [facility] Erythrocyte distribution wid th (RBC) [Ratio]Ordered By: Shayna Malhotra on 07-09-2024 Erythrocyte distribution width (RBC) [Entitic vol] 52.1 fL High 35.1-43.9 [facility] Erythrocyte distribution wid th ratioOrdered By: Shayna Malhotra on 07-09-2024 Erythrocyte distribution width (RBC) [Ratio] 15.9 % High 11.6-14.6 [facility] Erythrocyte distribution wid th standard deviationOrdered By: Shayna Malhotra on 07-09-2024 Erythrocyte distribution width (RBC) [Ratio] 52.1 fl High 35.1-43.9 [facility] Estimated glomerular filtrat ion rate (GFR) AmericanOrdered By: Shayna Malhotra on 07-09-2024 Estimated GFR (MDRD) Amer 96 mL/min >60 [facility] Comment on above: GFR Calc Glomerular filtration rate ( GFR) estimationOrdered By: Shayna Malhotra on 07-09-2024 Estimated GFR (MDRD) Non-Af Amer 79 mL/min >60 [facility] Comment on above: Non- GFR Calc GFR/1.73 sq M.predicted among non-blacks MDRD (S/P/Bld) [Vol rate/Area] 79 mL/min/{1.73_m2} >60 [facility] Comment on above: Non- GFR Calc Glucose measurementOrdered B y: Shayna Malhotra on 07-09-2024 Glucose [Mass/Vol] 168 mg/dL High 74-106 [facility] Comment on above: Fasting Glucose resu lt greater than or equal to 126 mg/dL suggests DIABETES MELLITUS per A.D.A. criteria. Hematocrit Auto (Bld) [Volum e fraction]Ordered By: Shayna Malhotra on 07-09-2024 Hematocrit (Bld) [Volume fraction] 38.2 % 37-47 [facility] Hemoglobin A1con 07-09-2024 HbA1c (Bld) [Mass fraction] 6.6 % High 3.8-5.6 [facility] Comment on above: Order Comment: 134 Result Comment: Norm al < 5.7 % Prediabetic 5.7 - 6.4 % Diabetic >or= 6.5 % Please note range changes. Performed By: #### L 500.4050, L506.1000, L100.0100, L501.9952 #### [facility] [address], [address] Hemoglobin A1c percentageOrd ered By: Shayna Malhotra on 07-09-2024 HbA1c (Bld) [Mass fraction] 6.6 % High 3.8-5.6 [facility] Comment on above: Normal < 5.7 % Predi abetic 5.7 - 6.4 % Diabetic >or= 6.5 % Please note range changes. Hemoglobin measurementOrdere d By: Shayna Malhotra on 07-09-2024 Hemoglobin (Bld) [Mass/Vol] 12.4 g/dL 12.0-15.0 [facility] Immature granulocytes/100 WB C Auto (Bld)Ordered By: Shayna Malhotra on 07-09-2024 Immature granulocytes/100 WBC (Bld) 0.200 % 0.0-0.9 [facility] Comment on above: IG% - Immature Granu locytes (promyelocytes, myelocytes and metamyelocytes) > 1% indicates that a LEFT SHIFT is Present. Laboratory - Chemistry and C hemistry - challengeOrdered By: Shayna Malhotra on 07-09-2024 AST [Catalytic activity/Vol] 35 U/L 15-37 [facility] Lymphocytes Auto (Unsp spec) [#/Vol]Ordered By: Shayna Malhotra on 07-09-2024 Lymphocytes (Bld) [#/Vol] 0.82 10*3/uL Low 0.83-4.51 [facility] Lymphocytes/100 WBC Auto (Un sp spec)Ordered By: Shayna Malhotra on 07-09-2024 Lymphocytes/100 WBC (Bld) 20.2 % 19-41 [facility] MCV (mean corpuscular volume ) determinationOrdered By: Shayna Malhotra on 07-09-2024 MCV (RBC) [Entitic vol] 89.5 fL 81-99 [facility] Mean corpuscular hemoglobin (MCH) determinationOrdered By: Shayna Malhotra on 07-09-2024 MCH (RBC) [Entitic mass] 29.0 pg 27.0-32.0 [facility] Mean corpuscular hemoglobin concentration (MCHC) determinationOrdered By: Shayna Malhotra on 07-09-2024 MCHC (RBC) [Mass/Vol] 32.5 g/dL 32-36 [facility] Mean platelet volume determi nationOrdered By: Shayna Malhotra on 07-09-2024 Platelet mean volume (Bld) [Entitic vol] 11.0 fL 6.2-12.0 [facility] Monocyte percentageOrdered B y: Shayna Malhotra on 07-09-2024 Monocytes/100 WBC (Bld) 9.6 % 0-10 [facility] Neutrophil percentageOrdered By: Shayna Malhotra on 07-09-2024 Neutrophils/100 WBC (Bld) 63.1 % 47-70 [facility] Nucleated red blood cell per centageOrdered By: Shayna Malhotra on 07-09-2024 Nucleated RBC/100 WBC (Bld) [Ratio] 0 % 0-5 [facility] Platelet countOrdered By: Maryanne Malhotra on 07-09-2024 Platelets (Bld) [#/Vol] 116 10*3/uL Low 150-450 [facility] Potassium measurementOrdered By: Shayna Malhotra on 07-09-2024 Potassium [Moles/Vol] 4.2 mmol/L 3.5-5.1 [facility] RBC Auto (Bld) [#/Vol]Ordere d By: Shayna Malhotra on 07-09-2024 RBC (Bld) [#/Vol] 4.27 10*6/uL 4.2-5.4 [facility] Serum anion gap measurementO rdered By: Shayna Malhotra on 07-09-2024 Anion gap [Moles/Vol] 5 mmol/L 5-15 [facility] Serum globulin measurementOr dered By: Shayna Malhotra on 07-09-2024 Globulin (S) [Mass/Vol] 4.9 g/dL High 2.2-4.2 [facility] Serum or plasma alanine burnette otransferase (ALT) measurementOrdered By: Shayna Malhotra on 07-09-2024 ALT [Catalytic activity/Vol] 27 U/L 13-56 [facility] Serum or plasma albumin kim urement (mass/volume)Ordered By: Shayna Malhotra on 07-09-2024 Albumin [Mass/Vol] 3.1 g/dL Low 3.2-5.0 [facility] Serum or plasma alkaline regina sphatase measurementOrdered By: Shayna Malhotra on 07-09-2024 ALP [Catalytic activity/Vol] 126 U/L High 45-117 [facility] Serum or plasma calcium kim urement (mass/volume)Ordered By: Shayna Malhotra on 07-09-2024 Calcium [Mass/Vol] 9.3 mg/dL 8.5-10.1 [facility] Serum or plasma creatinine m easurement (mass/volume)Ordered By: Shayna Malhotra on 07-09-2024 Creatinine [Mass/Vol] 0.76 mg/dL 0.55-1.02 [facility] Comment on above: The validity of the calculated GFR & GFRAA in patients over 70 years has not been determined. Clinical correlation is essential. Serum or plasma urea nitroge n measurement (mass/volume)Ordered By: Shayna Malhotra on 07-09-2024 Urea nitrogen [Mass/Vol] 17 mg/dL 7-18 [facility] Sodium levelOrdered By: Paty Malhotra on 07-09-2024 Sodium [Moles/Vol] 137 mmol/L 136-145 [facility] Total proteinOrdered By: Evi Malhotra on 07-09-2024 Protein [Mass/Vol] 8.0 g/dL 6.4-8.2 [facility] Vitamin D,25 Hydroxyon 07-09 Vitamin D 25-OH 44.8 ng/mL Normal [facility] Comment on above: Order Comment: 134 Result Comment: Maricarmen min D 25(OH) Status Range Deficiency <20 ng/mL (50nmol/L) Insufficiency 20 - 30 ng/mL (50 - 75 nmol/L) Sufficiency 30 - 100 ng/mL (75 - 250 nmol/L) Toxicity >100 ng/mL (>250 nmol/L) Performed By: #### L 500.4050, L506.1000, L100.0100, L501.9985 #### [facility] [place], [address] White blood cell (WBC) count Ordered By: Shayna Malhotra on 07-09-2024 WBC (Bld) [#/Vol] 4.1 10*3/uL Low 4.4-11.0 [facility] MR/BMS.[facility] 07-04-2024 MR/BMS.IMB [facility] [address] [place] [address] OFFICE VISIT Date of Service: 07/04/24 MR#: [id number] Acct: [id number] Name: VIDA NINA Rep #: [id number] : 1950 Provider: Dr. Shayna gomes MD Age/Sex: 73/F Location: 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 Normal [facility] MR/BMS.[facility] 05-28-2024 MR/BMS.IMB [facility] [address] [place], [place] [address] OFFICE VISIT Date of Service: 05/28/24 MR#: [id number] Acct: [id number] Name: VIDA NINA Rep #: [id number] : 1950 Provider: Dr. Shayna gomes MD Age/Sex: 73/F Location: 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 She lives at [facility]. She checked herself in there a few years ago as she felt it was in (more content not included)... Normal [facility] CBC W/Diff, Automatedon 11-0 Absolute Lymph 0.98 X10 3/uL Normal 0.83-4.51 [facility] Comment on above: Order Comment: 134 Performed By: #### L 500.4050, L506.1000, L100.0100, L501.9985 #### [facility] [address] [place], [address] Absolute Neut 2.6 X10 3/uL Normal 2.0-7.7 [facility] Comment on above: Order Comment: 134 Performed By: #### L 500.4050, L506.1000, L100.0100, L501.9985 #### [facility] [address] [place], [address] Basophils/100 WBC (Bld) 0.7 % Normal 0-1 [facility] Comment on above: Order Comment: 134 Performed By: #### L 500.4050, L506.1000, L100.0100, L501.9985 #### [facility] [address] [place], [address] Eosinophils/100 WBC (Bld) 4.1 % Normal 0-5 [facility] Comment on above: Order Comment: 134 Performed By: #### L 500.4050, L506.1000, L100.0100, L501.9985 #### [facility] [address] [place], [address] Erythrocyte distribution width (RBC) [Ratio] 15.2 % High 11.6-14.6 [facility] Comment on above: Order Comment: 134 Performed By: #### L 500.4050, L506.1000, L100.0100, L501.9985 #### [facility] [address] [place], [address] Hematocrit (Bld) [Volume fraction] 39.8 % Normal 37-47 [facility] Comment on above: Order Comment: 134 Performed By: #### L 500.4050, L506.1000, L100.0100, L501.9985 #### [facility] [address] [place], [address] Hemoglobin (Bld) [Mass/Vol] 12.5 g/dL Normal 12.0-15.0 [facility] Comment on above: Order Comment: 134 Performed By: #### L 500.4050, L506.1000, L100.0100, L501.9985 #### [facility] [address] [place], [address] IG% 0.200 Normal 0.0-0.9 [facility] Comment on above: Order Comment: 134 Result Comment: IG% - Immature Granulocytes (promyelocytes, myelocytes and metamyelocytes) > 1% indicates that a LEFT SHIFT is Present. Performed By: #### L 500.4050, L506.1000, L100.0100, L501.9985 #### [facility] [address] [place], [address] Lymphocytes/100 WBC (Bld) 23.9 % Normal 19-41 [facility] Comment on above: Order Comment: 134 Performed By: #### L 500.4050, L506.1000, L100.0100, L501.9985 #### [facility] [address] [place], [address] MCH (RBC) [Entitic mass] 28.4 pg Normal 27.0-32.0 [facility] Comment on above: Order Comment: 134 Performed By: #### L 500.4050, L506.1000, L100.0100, L501.9985 #### [facility] [address] [place], [address] MCHC (RBC) [Mass/Vol] 31.4 g/dL Low 32-36 [facility] Comment on above: Order Comment: 134 Performed By: #### L 500.4050, L506.1000, L100.0100, L501.9985 #### [facility] [address] [place], [address] MCV (RBC) [Entitic vol] 90.5 fL Normal 81-99 [facility] Comment on above: Order Comment: 134 Performed By: #### L 500.4050, L506.1000, L100.0100, L501.9985 #### [facility] [address] [place], [address] Monocytes/100 WBC (Bld) 8.5 % Normal 0-10 [facility] Comment on above: Order Comment: 134 Performed By: #### L 500.4050, L506.1000, L100.0100, L501.9985 #### [facility] [address] [place], [address] Neutrophils/100 WBC (Bld) 62.6 % Normal 47-70 [facility] Comment on above: Order Comment: 134 Performed By: #### L 500.4050, L506.1000, L100.0100, L501.9985 #### [facility] [address] [place], [address] Nucleated RBC (Bld) [#/Vol] 0 10*3/uL Normal 0-5 [facility] Comment on above: Order Comment: 134 Performed By: #### L 500.4050, L506.1000, L100.0100, L501.9985 #### [facility] [address] [place], [address] Platelet mean volume (Bld) [Entitic vol] 11.4 fL Normal 6.2-12.0 [facility] Comment on above: Order Comment: 134 Performed By: #### L 500.4050, L506.1000, L100.0100, L501.9985 #### [facility] [address] [place], [address] Platelets (Bld) [#/Vol] 107 10*3/uL Low 150-450 [facility] Comment on above: Order Comment: 134 Performed By: #### L 500.4050, L506.1000, L100.0100, L501.9985 #### [facility] [address] [place], [address] RBC (Bld) [#/Vol] 4.40 10*6/uL Normal 4.2-5.4 [facility] Comment on above: Order Comment: 134 Performed By: #### L 500.4050, L506.1000, L100.0100, L501.9985 #### [facility] [address] [place], [address] RDW SD 50.8 fl High 35.1-43.9 [facility] Comment on above: Order Comment: 134 Performed By: #### L 500.4050, L506.1000, L100.0100, L501.9985 #### [facility] [address] [place], [address] WBC (Bld) [#/Vol] 4.1 10*3/uL Low 4.4-11.0 [facility] Comment on above: Order Comment: 134 Performed By: #### L 500.4050, L506.1000, L100.0100, L501.9985 #### [facility] [address] [place], [address] Comprehensive Metabolic Prof ilon 04-09-2024 Albumin [Mass/Vol] 3.1 g/dL Low 3.2-5.0 [facility] Comment on above: Order Comment: 134 Performed By: #### L 500.4050, L506.1000, L100.0100, L501.9985 #### [facility] [address] [place], [address] Albumin/Globulin [Mass ratio] 0.7 {ratio} Low 0.9-2.4 [facility] Comment on above: Order Comment: 134 Performed By: #### L 500.4050, L506.1000, L100.0100, L501.9985 #### [facility] [address] [place], [address] ALK P 146 U/L High 45-117 [facility] Comment on above: Order Comment: 134 Performed By: #### L 500.4050, L506.1000, L100.0100, L501.9985 #### [facility] [address] [place], [address] ALT [Catalytic activity/Vol] 32 U/L Normal 13-56 [facility] Comment on above: Order Comment: 134 Performed By: #### L 500.4050, L506.1000, L100.0100, L501.9985 #### [facility] [address] [place], [address] AST [Catalytic activity/Vol] 36 U/L Normal 15-37 [facility] Comment on above: Order Comment: 134 Performed By: #### L 500.4050, L506.1000, L100.0100, L501.9985 #### [facility] [address] [place], [address] Bilirubin [Mass/Vol] 0.50 mg/dL Normal 0.20-1.00 [facility] Comment on above: Order Comment: 134 Result Comment: For patients on eltrombopag therapy, use of Dimension [place] TBIL is not recommended. Performed By: #### L 500.4050, L506.1000, L100.0100, L501.9985 #### [facility] [address] [place], [address] BUN/CRE 19.4 RATIO Normal 10-20 [facility] Comment on above: Order Comment: 134 Performed By: #### L 500.4050, L506.1000, L100.0100, L501.9985 #### [facility] [address] [place], [address] CA,Total 9.1 mg/dL Normal 8.5-10.1 [facility] Comment on above: Order Comment: 134 Performed By: #### L 500.4050, L506.1000, L100.0100, L501.9985 #### [facility] [address] [place], [address] Chloride [Moles/Vol] 109 mmol/L High 98-107 [facility] Comment on above: Order Comment: 134 Performed By: #### L 500.4050, L506.1000, L100.0100, L501.9985 #### [facility] [address] [place], [address] CO2 [Moles/Vol] 25.0 mmol/L Normal 21.0-32.0 [facility] Comment on above: Order Comment: 134 Performed By: #### L 500.4050, L506.1000, L100.0100, L501.9985 #### [facility] [address] [place], [address] Creatinine [Mass/Vol] 0.82 mg/dL Normal 0.55-1.02 [facility] Comment on above: Order Comment: 134 Result Comment: The validity of the calculated GFR GFRAA in patients over 70 years has not been determined. Clinical correlation is essential. Performed By: #### L 500.4050, L506.1000, L100.0100, L501.9985 #### [facility] [address] [place], [address] EST GFR - AA 88 mL/min Normal >60 [facility] Comment on above: Order Comment: 134 Result Comment: Afri can Eritrean GFR Calc Performed By: #### L 500.4050, L506.1000, L100.0100, L501.9985 #### [facility] [address] [place], [address] GAP 5 Normal 5-15 [facility] Comment on above: Order Comment: 134 Performed By: #### L 500.4050, L506.1000, L100.0100, L501.9985 #### [facility] [address] [place], [address] GFR/1.73 sq M.predicted among non-blacks MDRD (S/P/Bld) [Vol rate/Area] 73 mL/min/{1.73_m2} Normal >60 [facility] Comment on above: Order Comment: 134 Result Comment: Non- GFR Calc Performed By: #### L 500.4050, L506.1000, L100.0100, L501.9985 #### [facility] [address] [place], [address] Globulin (S) [Mass/Vol] 4.7 g/dL High 2.2-4.2 [facility] Comment on above: Order Comment: 134 Performed By: #### L 500.4050, L506.1000, L100.0100, L501.9985 #### [facility] [address] [place], [address] Glucose [Mass/Vol] 209 mg/dL High 74-106 [facility] Comment on above: Order Comment: 134 Result Comment: Gluc ose result greater than or equal to 200 mg/dL suggests DIABETES MELLITUS per A.D.A. criteria. Performed By: #### L 500.4050, L506.1000, L100.0100, L501.9985 #### [facility] [address] [place], [address] Potassium [Moles/Vol] 4.3 mmol/L Normal 3.5-5.1 [facility] Comment on above: Order Comment: 134 Performed By: #### L 500.4050, L506.1000, L100.0100, L501.9985 #### [facility] [address] [place], [address] Sodium [Moles/Vol] 139 mmol/L Normal 136-145 [facility] Comment on above: Order Comment: 134 Performed By: #### L 500.4050, L506.1000, L100.0100, L501.9985 #### [facility] [address] [place], [address] T PROT 7.8 g/dL Normal 6.4-8.2 [facility] Comment on above: Order Comment: 134 Performed By: #### L 500.4050, L506.1000, L100.0100, L501.9985 #### [facility] [address] [place], [address] Urea nitrogen [Mass/Vol] 16 mg/dL Normal 7-18 [facility] Comment on above: Order Comment: 134 Performed By: #### L 500.4050, L506.1000, L100.0100, L501.9985 #### [facility] [address] [place], [address] Hemoglobin A1con 04-09-2024 HbA1c (Bld) [Mass fraction] 7.9 % High 3.8-5.6 [facility] Comment on above: Order Comment: 134 Result Comment: Norm al < 5.7 % Prediabetic 5.7 - 6.4 % Diabetic >or= 6.5 % Please note range changes. Performed By: #### L 500.4050, L506.1000, L100.0100, L501.9985 #### [facility] [address] [place], [address] Vitamin D,25 Hydroxyon 04-09 Vitamin D 25-OH 40.0 ng/mL Normal [facility] Comment on above: Order Comment: 134 Result Comment: Maricarmen min D 25(OH) Status Range Deficiency <20 ng/mL (50nmol/L) Insufficiency 20 - 30 ng/mL (50 - 75 nmol/L) Sufficiency 30 - 100 ng/mL (75 - 250 nmol/L) Toxicity >100 ng/mL (>250 nmol/L) Performed By: #### L 500.4050, L506.1000, L100.0100, L501.9985 #### [facility] [address] [place], [address] CBC W/Diff, Automatedon 08-0 Absolute Lymph 1.07 X10 3/uL Normal 0.83-4.51 [facility] Comment on above: Performed By: #### L 506.1000, L100.0100, L501.9985, L500.4050 #### [facility] [address] [place], [address] Absolute Neut 2.9 X10 3/uL Normal 2.0-7.7 [facility] Comment on above: Performed By: #### L 506.1000, L100.0100, L501.9985, L500.4050 #### [facility] [address] [place], [address] Basophils/100 WBC (Bld) 0.7 % Normal 0-1 [facility] Comment on above: Performed By: #### L 506.1000, L100.0100, L501.9985, L500.4050 #### [facility] [address] [place], [address] Eosinophils/100 WBC (Bld) 3.9 % Normal 0-5 [facility] Comment on above: Performed By: #### L 506.1000, L100.0100, L501.9985, L500.4050 #### [facility] [address] [place], [address] Erythrocyte distribution width (RBC) [Ratio] 15.2 % High 11.6-14.6 [facility] Comment on above: Performed By: #### L 506.1000, L100.0100, L501.9985, L500.4050 #### [facility] [address] [place], [address] Hematocrit (Bld) [Volume fraction] 40.9 % Normal 37-47 [facility] Comment on above: Performed By: #### L 506.1000, L100.0100, L501.9985, L500.4050 #### [facility] [address] [place], [address] Hemoglobin (Bld) [Mass/Vol] 13.1 g/dL Normal 12.0-15.0 [facility] Comment on above: Performed By: #### L 506.1000, L100.0100, L501.9985, L500.4050 #### [facility] [address] [place], [address] IG% 0.400 Normal 0.0-0.9 [facility] Comment on above: Result Comment: IG% - Immature Granulocytes (promyelocytes, myelocytes and metamyelocytes) > 1% indicates that a LEFT SHIFT is Present. Performed By: #### L 506.1000, L100.0100, L501.9985, L500.4050 #### [facility] [address] [place], [address] Lymphocytes/100 WBC (Bld) 23.3 % Normal 19-41 [facility] Comment on above: Performed By: #### L 506.1000, L100.0100, L501.9985, L500.4050 #### [facility] [address] [place], [address] MCH (RBC) [Entitic mass] 29.0 pg Normal 27.0-32.0 [facility] Comment on above: Performed By: #### L 506.1000, L100.0100, L501.9985, L500.4050 #### [facility] [address] [place], [address] MCHC (RBC) [Mass/Vol] 32.0 g/dL Normal 32-36 [facility] Comment on above: Performed By: #### L 506.1000, L100.0100, L501.9985, L500.4050 #### [facility] [address] [place], [address] MCV (RBC) [Entitic vol] 90.7 fL Normal 81-99 [facility] Comment on above: Performed By: #### L 506.1000, L100.0100, L501.9985, L500.4050 #### [facility] [address] [place], [address] Monocytes/100 WBC (Bld) 9.2 % Normal 0-10 [facility] Comment on above: Performed By: #### L 506.1000, L100.0100, L501.9985, L500.4050 #### [facility] [address] [place], [address] Neutrophils/100 WBC (Bld) 62.5 % Normal 47-70 [facility] Comment on above: Performed By: #### L 506.1000, L100.0100, L501.9985, L500.4050 #### [facility] [address] [place], [address] Nucleated RBC (Bld) [#/Vol] 0 10*3/uL Normal 0-5 [facility] Comment on above: Performed By: #### L 506.1000, L100.0100, L501.9985, L500.4050 #### [facility] [address] [place], [address] Platelet mean volume (Bld) [Entitic vol] 11.7 fL Normal 6.2-12.0 [facility] Comment on above: Performed By: #### L 506.1000, L100.0100, L501.9985, L500.4050 #### [facility] [address] [place], [address] Platelets (Bld) [#/Vol] 110 10*3/uL Low 150-450 [facility] Comment on above: Performed By: #### L 506.1000, L100.0100, L501.9985, L500.4050 #### [facility] [address] [place], [address] RBC (Bld) [#/Vol] 4.51 10*6/uL Normal 4.2-5.4 [facility] Comment on above: Performed By: #### L 506.1000, L100.0100, L501.9985, L500.4050 #### [facility] [address] [place], [address] RDW SD 50.8 fl High 35.1-43.9 [facility] Comment on above: Performed By: #### L 506.1000, L100.0100, L501.9985, L500.4050 #### [facility] [address] [place], [address] WBC (Bld) [#/Vol] 4.6 10*3/uL Normal 4.4-11.0 [facility] Comment on above: Performed By: #### L 506.1000, L100.0100, L501.9985, L500.4050 #### [facility] [address] [place], [address] Comprehensive Metabolic Prof ilon 01-09-2024 Albumin [Mass/Vol] 2.9 g/dL Low 3.2-5.0 [facility] Comment on above: Order Comment: 134 Performed By: #### L 506.1000, L100.0100, L501.9985, L500.4050 #### [facility] [address] [place], [address] Albumin/Globulin [Mass ratio] 0.6 {ratio} Low 0.9-2.4 [facility] Comment on above: Order Comment: 134 Performed By: #### L 506.1000, L100.0100, L501.9985, L500.4050 #### [facility] [address] [place], [address] ALK P 148 U/L High 45-117 [facility] Comment on above: Order Comment: 134 Performed By: #### L 506.1000, L100.0100, L501.9985, L500.4050 #### [facility] [address] [place], [address] ALT [Catalytic activity/Vol] 37 U/L Normal 13-56 [facility] Comment on above: Order Comment: 134 Performed By: #### L 506.1000, L100.0100, L501.9985, L500.4050 #### [facility] [address] [place], [address] AST [Catalytic activity/Vol] 40 U/L High 15-37 [facility] Comment on above: Order Comment: 134 Performed By: #### L 506.1000, L100.0100, L501.9985, L500.4050 #### [facility] [address] [place], [address] Bilirubin [Mass/Vol] 0.40 mg/dL Normal 0.20-1.00 [facility] Comment on above: Order Comment: 134 Result Comment: For patients on eltrombopag therapy, use of Dimension [place] TBIL is not recommended. Performed By: #### L 506.1000, L100.0100, L501.9985, L500.4050 #### [facility] [address] [place], [address] BUN/CRE 20.9 RATIO High 10-20 [facility] Comment on above: Order Comment: 134 Performed By: #### L 506.1000, L100.0100, L501.9985, L500.4050 #### [facility] [address] [place], [address] CA,Total 9.0 mg/dL Normal 8.5-10.1 [facility] Comment on above: Order Comment: 134 Performed By: #### L 506.1000, L100.0100, L501.9985, L500.4050 #### [facility] [address] [place], [address] Chloride [Moles/Vol] 108 mmol/L High 98-107 [facility] Comment on above: Order Comment: 134 Performed By: #### L 506.1000, L100.0100, L501.9985, L500.4050 #### [facility] [address] [place], [address] CO2 [Moles/Vol] 25.0 mmol/L Normal 21.0-32.0 [facility] Comment on above: Order Comment: 134 Performed By: #### L 506.1000, L100.0100, L501.9985, L500.4050 #### [facility] [address] [place], [address] Creatinine [Mass/Vol] 0.96 mg/dL Normal 0.55-1.02 [facility] Comment on above: Order Comment: 134 Result Comment: The validity of the calculated GFR GFRAA in patients over 70 years has not been determined. Clinical correlation is essential. Performed By: #### L 506.1000, L100.0100, L501.9985, L500.4050 #### [facility] [address] [place], [address] EST GFR - AA 74 mL/min Normal >60 [facility] Comment on above: Order Comment: 134 Result Comment: Afri can Eritrean GFR Calc Performed By: #### L 506.1000, L100.0100, L501.9985, L500.4050 #### [facility] [address] [place], [address] GAP 6 Normal 5-15 [facility] Comment on above: Order Comment: 134 Performed By: #### L 506.1000, L100.0100, L501.9985, L500.4050 #### [facility] [address] [place], [address] GFR/1.73 sq M.predicted among non-blacks MDRD (S/P/Bld) [Vol rate/Area] 61 mL/min/{1.73_m2} Normal >60 [facility] Comment on above: Order Comment: 134 Result Comment: Non- GFR Calc Performed By: #### L 506.1000, L100.0100, L501.9985, L500.4050 #### [facility] [address] [place], [address] Globulin (S) [Mass/Vol] 5.0 g/dL High 2.2-4.2 [facility] Comment on above: Order Comment: 134 Performed By: #### L 506.1000, L100.0100, L501.9985, L500.4050 #### [facility] [address] [place], [address] Glucose [Mass/Vol] 219 mg/dL High 74-106 [facility] Comment on above: Order Comment: 134 Result Comment: Gluc ose result greater than or equal to 200 mg/dL suggests DIABETES MELLITUS per A.D.A. criteria. Performed By: #### L 506.1000, L100.0100, L501.9985, L500.4050 #### [facility] [address] [place], [address] Potassium [Moles/Vol] 4.9 mmol/L Normal 3.5-5.1 [facility] Comment on above: Order Comment: 134 Performed By: #### L 506.1000, L100.0100, L501.9985, [id number] #### [facility] [address] [place], [address] Sodium [Moles/Vol] 139 mmol/L Normal 136-145 [facility] Comment on above: Order Comment: 134 Performed By: #### L 506.1000, L100.0100, L501.9985, [id number] #### [facility] [address] [place], [address] T PROT 7.9 g/dL Normal 6.4-8.2 [facility] Comment on above: Order Comment: 134 Performed By: #### L 506.1000, L100.0100, L501.9985, [id number] #### [facility] [address] [place], [address] Urea nitrogen [Mass/Vol] 20 mg/dL High 7-18 [facility] Comment on above: Order Comment: 134 Performed By: #### L 506.1000, L100.0100, L501.9985, [id number] #### [facility] [address] [place], [address] Hemoglobin A1con 01-09-2024 HbA1c (Bld) [Mass fraction] 7.9 % High 3.8-5.6 [facility] Comment on above: Result Comment: Norm al < 5.7 % Prediabetic 5.7 - 6.4 % Diabetic >or= 6.5 % Please note range changes. Performed By: #### L 506.1000, L100.0100, L501.9985, L500.4050 #### [facility] [address] [place], [place], [id number] Vitamin D,25 Hydroxyon 01-08 Vitamin D 25-OH 52.9 ng/mL Normal [facility] Comment on above: Result Comment: Maricarmen min D 25(OH) Status Range Deficiency <20 ng/mL (50nmol/L) Insufficiency 20 - 30 ng/mL (50 - 75 nmol/L) Sufficiency 30 - 100 ng/mL (75 - 250 nmol/L) Toxicity >100 ng/mL (>250 nmol/L) Performed By: #### L 506.1000, L100.0100, L501.9985, L500.4050 #### [facility] [address] [place], [place], [id number] Absolute lymphocyte countOrd ered By: Shayna Malhotra on 07-08-2023 Lymphocytes Auto (Unsp spec) [#/Vol] 0.97 10*3/uL 0.83-4.51 [facility] Automated lymphocyte count a s percentage of total leukocytesOrdered By: Shayna Malhotra on 07-08-2023 Lymphocytes/100 WBC Auto (Unsp spec) 21.6 % 19-41 [facility] Basophil percentageOrdered B y: Shayna Malhotra on 07-08-2023 Basophils/100 WBC (Bld) 0.7 % 0-1 [facility] Bilirubin [Mass/Vol] 0.60 mg/dL 0.20-1.00 [facility] Comment on above: For patients on eltr ombopag therapy, use of Dimension [place] TBIL is not recommended. Chloride [Moles/Vol] 109 mmol/L 98-107 [facility] Eosinophils/100 WBC (Bld) 2.4 % 0-5 [facility] Glucose [Mass/Vol] 204 mg/dL 74-106 [facility] Comment on above: Glucose result great er than or equal to 200 mg/dLsuggests DIABETES MELLITUS per A.D.A. criteria. Hemoglobin (Bld) [Mass/Vol] 12.6 g/dL 12.0-15.0 [facility] Monocytes/100 WBC (Bld) 8.7 % 0-10 [facility] Neutrophils (Bld) [#/Vol] 3.0 10*3/uL 2.0-7.7 [facility] Neutrophils/100 WBC (Bld) 66.4 % 47-70 [facility] Potassium [Moles/Vol] 4.4 mmol/L 3.5-5.1 [facility] Protein [Mass/Vol] 8.0 g/dL 6.4-8.2 [facility] Sodium [Moles/Vol] 137 mmol/L 136-145 [facility] WBC (Bld) [#/Vol] 4.5 10*3/uL 4.4-11.0 [facility] Determination of erythrocyte mean corpuscular volume (MCV)Ordered By: Shayna Malhotra on 07-08-2023 MCV (RBC) [Entitic vol] 90.3 fL 81-99 [facility] Erythrocyte distribution wid th ratioOrdered By: Shayna Malhotra on 07-08-2023 Erythrocyte distribution width (RBC) [Ratio] 15.5 % 11.6-14.6 [facility] Erythrocyte distribution wid th standard deviationOrdered By: Shayna Malhotra on 07-08-2023 Erythrocyte distribution width (RBC) [Entitic vol] 51.9 fL 35.1-43.9 [facility] Hematocrit Auto (Bld) [Volum e fraction]Ordered By: Shayna Malhotra on 07-08-2023 Hematocrit (Bld) [Volume fraction] 39.9 % 37-47 [facility] Immature granulocytes/100 WB C Auto (Bld)Ordered By: Shayna Malhotra on 07-08-2023 Immature granulocytes/100 WBC (Bld) 0.200 % 0.0-0.9 [facility] Comment on above: IG% - Immature Granu locytes (promyelocytes, myelocytes and metamyelocytes) > 1% indicates that a LEFT SHIFT is Present. Laboratory - Chemistry and C hemistry - challengeOrdered By: Shayna Malhotra on 07-08-2023 Albumin/Globulin [Mass ratio] 0.7 {ratio} 0.9-2.4 [facility] ALP [Catalytic activity/Vol] 126 U/L 45-117 [facility] ALT [Catalytic activity/Vol] 34 U/L 13-56 [facility] CO2 [Moles/Vol] 24.0 mmol/L 21.0-32.0 [facility] Globulin (S) [Mass/Vol] 4.7 g/dL 2.2-4.2 [facility] Urea nitrogen/Creatinine [Mass ratio] 17.2 mg/mg 10-20 [facility] - Hematology and Cell countsOrdered By: Shayna Malhotra on 07-08-2023 MCH (RBC) [Entitic mass] 28.5 pg 27.0-32.0 [facility] MCHC (RBC) [Mass/Vol] 31.6 g/dL 32-36 [facility] Nucleated RBC/100 WBC (Bld) [Ratio] 0 % 0-5 [facility] Platelets (Bld) [#/Vol] 130 10*3/uL 150-450 [facility] No Panel InformationOrdered By: Shayna Malhotra on 07-08-2023 Estimated GFR (MDRD) Amer 83 mL/min >60 [facility] Comment on above: GFR Calc Estimated GFR (MDRD) Non-Af Amer 68 mL/min >60 [facility] Comment on above: Non- GFR Calc Vitamin D 25-Hydroxy 36.2 ng/mL [facility] Comment on above: Vitamin D 25(OH) Sta tus Range Deficiency <20 ng/mL (50nmol/L) Insufficiency 20 - 30 ng/mL (50 - 75 nmol/L) Sufficiency 30 - 100 ng/mL (75 - 250 nmol/L) Toxicity >100 ng/mL (>250 nmol/L) Platelet mean volume Robert-Ec ker (Bld) [Entitic vol]Ordered By: Shayna Malhotra on 07-08-2023 Platelet mean volume (Bld) [Entitic vol] 11.5 fL 6.2-12.0 [facility] RBC Auto (Bld) [#/Vol]Ordere d By: Shayna Malhotra on 07-08-2023 RBC (Bld) [#/Vol] 4.42 10*6/uL 4.2-5.4 [facility] Serum or plasma calcium kim urement (mass/volume)Ordered By: Shayna Malhotra on 07-08-2023 Calcium [Mass/Vol] 9.3 mg/dL 8.5-10.1 [facility] Serum or plasma creatinine m easurement (mass/volume)Ordered By: Shayna Malhotra on 07-08-2023 Creatinine [Mass/Vol] 0.87 mg/dL 0.55-1.02 [facility] Comment on above: The validity of the calculated GFR & GFRAA in patients over 70 years has not been determined. Clinical correlation is essential. Serum or plasma urea nitroge n measurement (mass/volume)Ordered By: Shayna Malhotra on 07-08-2023 Urea nitrogen [Mass/Vol] 15 mg/dL 7-18 [facility] Thin prep Papanicolaou smear with manual screeningOrdered By: Shayna Malhotra on 07-08-2023 Thin prep Papanicolaou smear with manual screening 3.3 g/dL 3.2-5.0 [facility] Thin prep Papanicolaou smear with manual screening 38 U/L 15-37 [facility] Thin prep Papanicolaou smear with manual screening 4 5-15 [facility] Whole blood hemoglobin A1c/t otal hemoglobin ratio (mass fraction)Ordered By: Shayna Malhotra on 07-08-2023 HbA1c (Bld) [Mass fraction] 7.5 % 3.8-5.6 [facility] Comment on above: Normal < 5.7 % Predi abetic 5.7 - 6.4 % Diabetic >or= 6.5 % Please note range changes. Absolute lymphocyte countOrd ered By: [facility] on 04-08-2023 Lymphocytes Auto (Unsp spec) [#/Vol] 1.16 10*3/uL 0.83-4.51 [facility] Basophil percentageOrdered B y: [facility] on 04-08-2023 Basophils/100 WBC (Bld) 0.6 % 0-1 [facility] Bilirubin [Mass/Vol] 0.60 mg/dL 0.20-1.00 [facility] Comment on above: For patients on eltr ombopag therapy, use of Dimension [place] TBIL is not recommended. Chloride [Moles/Vol] 106 mmol/L 98-107 [facility] Eosinophils/100 WBC (Bld) 2.6 % 0-5 [facility] Glucose [Mass/Vol] 200 mg/dL 74-106 [facility] Comment on above: Glucose result great er than or equal to 200 mg/dLsuggests DIABETES MELLITUS per A.D.A. criteria. Neutrophils (Bld) [#/Vol] 3.3 10*3/uL 2.0-7.7 [facility] Neutrophils/100 WBC (Bld) 65.4 % 47-70 [facility] Potassium [Moles/Vol] 4.2 mmol/L 3.5-5.1 [facility] Protein [Mass/Vol] 8.1 g/dL 6.4-8.2 [facility] Sodium [Moles/Vol] 136 mmol/L 136-145 [facility] WBC (Bld) [#/Vol] 5.0 10*3/uL 4.4-11.0 [facility] Blood erythrocytes count (nu mber/volume)Ordered By: [facility] on 04-08-2023 RBC (Bld) [#/Vol] 4.50 10*6/uL 4.2-5.4 [facility] Blood hemoglobin measurement (mass/volume)Ordered By: [facility] on 04-08-2023 Hemoglobin (Bld) [Mass/Vol] 12.9 g/dL 12.0-15.0 [facility] Blood lymphocytes/100 leukoc ytesOrdered By: [facility] on 04-08-2023 Lymphocytes/100 WBC (Bld) 23.2 % 19-41 [facility] Blood monocytes/100 leukocyt esOrdered By: [facility] on 04-08-2023 Monocytes/100 WBC (Bld) 7.8 % 0-10 [facility] Blood platelet mean volumeOr dered By: [facility] on 04-08-2023 Platelet mean volume (Bld) [Entitic vol] 11.9 fL 6.2-12.0 [facility] Determination of erythrocyte mean corpuscular volume (MCV)Ordered By: [facility] on 04-08-2023 MCV (RBC) [Entitic vol] 89.6 fL 81-99 [facility] Hematocrit Auto (Bld) [Volum e fraction]Ordered By: [facility] on 04-08-2023 Hematocrit (Bld) [Volume fraction] 40.3 % 37-47 [facility] - Chemistry and C hemistry - challengeOrdered By: [facility] on 04-08-2023 ALP [Catalytic activity/Vol] 126 U/L 45-117 [facility] ALT [Catalytic activity/Vol] 35 U/L 13-56 [facility] CO2 [Moles/Vol] 24.0 mmol/L 21.0-32.0 [facility] Globulin (S) [Mass/Vol] 4.9 g/dL 2.2-4.2 [facility] Urea nitrogen/Creatinine [Mass ratio] 17.1 mg/mg 10-20 [facility] - Hematology and Cell countsOrdered By: [facility] on 04-08-2023 Erythrocyte distribution width (RBC) [Entitic vol] 51.4 fL 35.1-43.9 [facility] Erythrocyte distribution width (RBC) [Ratio] 15.6 % 11.6-14.6 [facility] Immature granulocytes/100 WBC (Bld) 0.400 % 0.0-0.9 [facility] Comment on above: IG% - Immature Granu locytes (promyelocytes, myelocytes and metamyelocytes) > 1% indicates that a LEFT SHIFT is Present. MCH (RBC) [Entitic mass] 28.7 pg 27.0-32.0 [facility] Nucleated RBC/100 WBC (Bld) [Ratio] 0 % 0-5 [facility] MCHC Auto (RBC) [Mass/Vol]Or dered By: [facility] on 04-08-2023 MCHC (RBC) [Mass/Vol] 32.0 g/dL 32-36 [facility] No Panel InformationOrdered By: [facility] on 04-08-2023 Estimated GFR (MDRD) Amer 82 mL/min >60 [facility] Comment on above: GFR Calc Estimated GFR (MDRD) Non-Af Amer 68 mL/min >60 [facility] Comment on above: Non- GFR Calc Vitamin D 25-Hydroxy 43.2 ng/mL [facility] Comment on above: Vitamin D 25(OH) Sta tus Range Deficiency <20 ng/mL (50nmol/L) Insufficiency 20 - 30 ng/mL (50 - 75 nmol/L) Sufficiency 30 - 100 ng/mL (75 - 250 nmol/L) Toxicity >100 ng/mL (>250 nmol/L) Platelets bldOrdered By: [facility] on 04-08-2023 Platelets (Bld) [#/Vol] 119 10*3/uL 150-450 [facility] Serum or plasma albumin kim urement (mass/volume)Ordered By: [facility] on 04-08-2023 Albumin [Mass/Vol] 3.2 g/dL 3.2-5.0 [facility] Serum or plasma albumin/glob ulin mass ratioOrdered By: [facility] on 04-08-2023 Albumin/Globulin [Mass ratio] 0.7 {ratio} 0.9-2.4 [facility] Serum or plasma calcium kim urement (mass/volume)Ordered By: [facility] on 04-08-2023 Calcium [Mass/Vol] 9.1 mg/dL 8.5-10.1 [facility] Serum or plasma creatinine m easurement (mass/volume)Ordered By: [facility] on 04-08-2023 Creatinine [Mass/Vol] 0.88 mg/dL 0.55-1.02 [facility] Comment on above: The validity of the calculated GFR & GFRAA in patients over 70 years has not been determined. Clinical correlation is essential. Serum or plasma urea nitroge n measurement (mass/volume)Ordered By: [facility] on 04-08-2023 Urea nitrogen [Mass/Vol] 15 mg/dL 7-18 [facility] Thin prep Papanicolaou smear with manual screeningOrdered By: [facility] on 04-08-2023 Thin prep Papanicolaou smear with manual screening 36 U/L 15-37 [facility] Thin prep Papanicolaou smear with manual screening 6 5-15 [facility] Whole blood hemoglobin A1c/t otal hemoglobin ratio (mass fraction)Ordered By: [facility] on 04-08-2023 HbA1c (Bld) [Mass fraction] 7.5 % 3.8-5.6 [facility] Comment on above: Normal < 5.7 % Predi abetic 5.7 - 6.4 % Diabetic >or= 6.5 % Please note range changes. Absolute lymphocyte countOrd ered By: Shayna Malhotra on 10-13-2022 Lymphocytes Auto (Unsp spec) [#/Vol] 1.32 10*3/uL 0.83-4.51 [facility] Basophil percentageOrdered B y: Shayna Malhotra on 10-13-2022 Basophils/100 WBC (Bld) 0.6 % 0-1 [facility] Bilirubin [Mass/Vol] 0.40 mg/dL 0.20-1.00 [facility] Comment on above: For patients on eltr ombopag therapy, use of Dimension [place] TBIL is not recommended. Chloride [Moles/Vol] 106 mmol/L 98-107 [facility] Eosinophils/100 WBC (Bld) 3.5 % 0-5 [facility] Glucose [Mass/Vol] 232 mg/dL 74-106 [facility] Comment on above: Glucose result great er than or equal to 200 mg/dLsuggests DIABETES MELLITUS per A.D.A. criteria. Neutrophils (Bld) [#/Vol] 3.2 10*3/uL 2.0-7.7 [facility] Neutrophils/100 WBC (Bld) 60.7 % 47-70 [facility] Potassium [Moles/Vol] 4.7 mmol/L 3.5-5.1 [facility] Protein [Mass/Vol] 8.1 g/dL 6.4-8.2 [facility] Sodium [Moles/Vol] 137 mmol/L 136-145 [facility] WBC (Bld) [#/Vol] 5.2 10*3/uL 4.4-11.0 [facility] Blood erythrocytes count (nu mber/volume)Ordered By: Shayna Malhotra on 10-13-2022 RBC (Bld) [#/Vol] 4.62 10*6/uL 4.2-5.4 [facility] Blood hemoglobin measurement (mass/volume)Ordered By: Shayna Malhotra on 10-13-2022 Hemoglobin (Bld) [Mass/Vol] 13.1 g/dL 12.0-15.0 [facility] Blood lymphocytes/100 leukoc ytesOrdered By: Shayna Malhotra on 10-13-2022 Lymphocytes/100 WBC (Bld) 25.4 % 19-41 [facility] Blood monocytes/100 leukocyt esOrdered By: Shayna Malhotra on 10-13-2022 Monocytes/100 WBC (Bld) 9.6 % 0-10 [facility] Blood platelet mean volumeOr dered By: Shayna Malhotra on 10-13-2022 Platelet mean volume (Bld) [Entitic vol] 11.1 fL 6.2-12.0 [facility] Determination of erythrocyte mean corpuscular volume (MCV)Ordered By: Shayna Malhotra on 10-13-2022 MCV (RBC) [Entitic vol] 90.3 fL 81-99 [facility] Hematocrit Auto (Bld) [Volum e fraction]Ordered By: Shayna Malhotra on 10-13-2022 Hematocrit (Bld) [Volume fraction] 41.7 % 37-47 [facility] - Chemistry and C hemistry - challengeOrdered By: Shayna Malhotra on 10-13-2022 ALP [Catalytic activity/Vol] 153 U/L 45-117 [facility] ALT [Catalytic activity/Vol] 45 U/L 13-56 [facility] CO2 [Moles/Vol] 25.0 mmol/L 21.0-32.0 [facility] Globulin (S) [Mass/Vol] 4.9 g/dL 2.2-4.2 [facility] Urea nitrogen/Creatinine [Mass ratio] 15.7 mg/mg 10-20 [facility] - Hematology and Cell countsOrdered By: Shayna Malhotra on 10-13-2022 Erythrocyte distribution width (RBC) [Entitic vol] 50.5 fL 35.1-43.9 [facility] Erythrocyte distribution width (RBC) [Ratio] 15.1 % 11.6-14.6 [facility] Immature granulocytes/100 WBC (Bld) 0.200 % 0.0-0.9 [facility] Comment on above: IG% - Immature Granu locytes (promyelocytes, myelocytes and metamyelocytes) > 1% indicates that a LEFT SHIFT is Present. MCH (RBC) [Entitic mass] 28.4 pg 27.0-32.0 [facility] Nucleated RBC/100 WBC (Bld) [Ratio] 0 % 0-5 [facility] MCHC Auto (RBC) [Mass/Vol]Or dered By: Shayna Malhotra on 10-13-2022 MCHC (RBC) [Mass/Vol] 31.4 g/dL 32-36 [facility] No Panel InformationOrdered By: Shayna Malhotra on 10-13-2022 Estimated GFR (MDRD) Amer 80 mL/min >60 [facility] Comment on above: GFR Calc Estimated GFR (MDRD) Non-Af Amer 66 mL/min >60 [facility] Comment on above: Non- GFR Calc Vitamin D 25-Hydroxy 57.3 ng/mL [facility] Comment on above: Vitamin D 25(OH) Sta tus Range Deficiency <20 ng/mL (50nmol/L) Insufficiency 20 - 30 ng/mL (50 - 75 nmol/L) Sufficiency 30 - 100 ng/mL (75 - 250 nmol/L) Toxicity >100 ng/mL (>250 nmol/L) Platelets bldOrdered By: Evi Malhotra on 10-13-2022 Platelets (Bld) [#/Vol] 139 10*3/uL 150-450 [facility] Serum or plasma albumin kim urement (mass/volume)Ordered By: Shayna Malhotra on 10-13-2022 Albumin [Mass/Vol] 3.2 g/dL 3.2-5.0 [facility] Serum or plasma albumin/glob ulin mass ratioOrdered By: Shayna Malhotra on 10-13-2022 Albumin/Globulin [Mass ratio] 0.7 {ratio} 0.9-2.4 [facility] Serum or plasma calcium kim urement (mass/volume)Ordered By: Shayna Malhotra on 10-13-2022 Calcium [Mass/Vol] 9.5 mg/dL 8.5-10.1 [facility] Serum or plasma creatinine m easurement (mass/volume)Ordered By: Shayna Malhotra on 10-13-2022 Creatinine [Mass/Vol] 0.89 mg/dL 0.55-1.02 [facility] Comment on above: The validity of the calculated GFR & GFRAA in patients over 70 years has not been determined. Clinical correlation is essential. Serum or plasma urea nitroge n measurement (mass/volume)Ordered By: Shayna Malhotra on 10-13-2022 Urea nitrogen [Mass/Vol] 14 mg/dL 7-18 [facility] Thin prep Papanicolaou smear with manual screeningOrdered By: Shayna Malhotra on 10-13-2022 Thin prep Papanicolaou smear with manual screening 49 U/L 15-37 [facility] Thin prep Papanicolaou smear with manual screening 6 5-15 [facility] No Panel InformationOrdered By: Shayna Malhotra on 08-12-2022 C-Peptide 2.9 ng/mL 1.1-4.4 [facility] Comment on above: C-Peptide reference interval is for fasting patients.Performed at: [facility] Director: Suhas Deal PhD, Phone: [phone] Absolute lymphocyte countOrd ered By: Shayna Malhotra on 07-13-2022 Lymphocytes Auto (Unsp spec) [#/Vol] 1.18 10*3/uL 0.83-4.51 [facility] Basophil percentageOrdered B y: Shayna Malhotra on 07-13-2022 Basophils/100 WBC (Bld) 0.7 % 0-1 [facility] Bilirubin [Mass/Vol] 0.90 mg/dL 0.20-1.00 [facility] Comment on above: For patients on eltr ombopag therapy, use of Dimension [place] TBIL is not recommended. Chloride [Moles/Vol] 104 mmol/L 98-107 [facility] Eosinophils/100 WBC (Bld) 3.3 % 0-5 [facility] Glucose [Mass/Vol] 314 mg/dL 74-106 [facility] Comment on above: Glucose result great er than or equal to 200 mg/dLsuggests DIABETES MELLITUS per A.D.A. criteria. Neutrophils (Bld) [#/Vol] 3.5 10*3/uL 2.0-7.7 [facility] Neutrophils/100 WBC (Bld) 64.8 % 47-70 [facility] Potassium [Moles/Vol] 5.1 mmol/L 3.5-5.1 [facility] Comment on above: Slight Hemolysis, Re sult may be falsely increased. Protein [Mass/Vol] 8.2 g/dL 6.4-8.2 [facility] Sodium [Moles/Vol] 135 mmol/L 136-145 [facility] WBC (Bld) [#/Vol] 5.4 10*3/uL 4.4-11.0 [facility] Blood erythrocytes count (nu mber/volume)Ordered By: Shayna Malhotra on 07-13-2022 RBC (Bld) [#/Vol] 4.51 10*6/uL 4.2-5.4 [facility] Blood hemoglobin measurement (mass/volume)Ordered By: Shayna Malhotra on 07-13-2022 Hemoglobin (Bld) [Mass/Vol] 12.8 g/dL 12.0-15.0 [facility] Blood lymphocytes/100 leukoc ytesOrdered By: Shayna Malhotra on 07-13-2022 Lymphocytes/100 WBC (Bld) 21.9 % 19-41 [facility] Blood monocytes/100 leukocyt esOrdered By: Shayna Malhotra on 07-13-2022 Monocytes/100 WBC (Bld) 9.1 % 0-10 [facility] Blood platelet mean volumeOr dered By: Shayna Malhotra on 07-13-2022 Platelet mean volume (Bld) [Entitic vol] 11.2 fL 6.2-12.0 [facility] Determination of erythrocyte mean corpuscular volume (MCV)Ordered By: Shayna Malhotra on 07-13-2022 MCV (RBC) [Entitic vol] 87.1 fL 81-99 [facility] Hematocrit Auto (Bld) [Volum e fraction]Ordered By: Shayna Malhotra on 07-13-2022 Hematocrit (Bld) [Volume fraction] 39.3 % 37-47 [facility] - Chemistry and C hemistry - challengeOrdered By: Shayna Malhotra on 07-13-2022 ALP [Catalytic activity/Vol] 159 U/L 45-117 [facility] ALT [Catalytic activity/Vol] 35 U/L 13-56 [facility] CO2 [Moles/Vol] 23.0 mmol/L 21.0-32.0 [facility] Globulin (S) [Mass/Vol] 4.9 g/dL 2.2-4.2 [facility] Urea nitrogen/Creatinine [Mass ratio] 16.6 mg/mg 10-20 [facility] - Hematology and Cell countsOrdered By: Shayna Malhotra on 07-13-2022 Erythrocyte distribution width (RBC) [Entitic vol] 49.6 fL 35.1-43.9 [facility] [facility] Erythrocyte distribution width (RBC) [Ratio] 15.7 % 11.6-14.6 [facility] Immature granulocytes/100 WBC (Bld) 0.200 % 0.0-0.9 [facility] Comment on above: IG% - Immature Granu locytes (promyelocytes, myelocytes and metamyelocytes) > 1% indicates that a LEFT SHIFT is Present. MCH (RBC) [Entitic mass] 28.4 pg 27.0-32.0 [facility] Nucleated RBC/100 WBC (Bld) [Ratio] 0 % 0-5 [facility] MCHC Auto (RBC) [Mass/Vol]Or dered By: Shayna Malhotra on 07-13-2022 MCHC (RBC) [Mass/Vol] 32.6 g/dL 32-36 [facility] No Panel InformationOrdered By: Shayna Malhotra on 07-13-2022 Estimated GFR (MDRD) Amer 74 mL/min >60 [facility] Comment on above: GFR Calc Estimated GFR (MDRD) Non-Af Amer 61 mL/min >60 [facility] Comment on above: Non- GFR Calc Vitamin D 25-Hydroxy 47.5 ng/mL [facility] Comment on above: Vitamin D 25(OH) Sta tus Range Deficiency <20 ng/mL (50nmol/L) Insufficiency 20 - 30 ng/mL (50 - 75 nmol/L) Sufficiency 30 - 100 ng/mL (75 - 250 nmol/L) Toxicity >100 ng/mL (>250 nmol/L) Platelets bldOrdered By: Evi Malhotra on 07-13-2022 Platelets (Bld) [#/Vol] 132 10*3/uL 150-450 [facility] Serum or plasma albumin kim urement (mass/volume)Ordered By: Shayna Malhotra on 07-13-2022 Albumin [Mass/Vol] 3.3 g/dL 3.2-5.0 [facility] Serum or plasma albumin/glob ulin mass ratioOrdered By: Shayna Malhotra on 07-13-2022 Albumin/Globulin [Mass ratio] 0.7 {ratio} 0.9-2.4 [facility] Serum or plasma calcium kim urement (mass/volume)Ordered By: Shayna Malhotra on 07-13-2022 Calcium [Mass/Vol] 9.6 mg/dL 8.5-10.1 [facility] Serum or plasma creatinine m easurement (mass/volume)Ordered By: Shayna Malhotra on 07-13-2022 Creatinine [Mass/Vol] 0.97 mg/dL 0.55-1.02 [facility] Comment on above: The validity of the calculated GFR & GFRAA in patients over 70 years has not been determined. Clinical correlation is essential. Serum or plasma urea nitroge n measurement (mass/volume)Ordered By: Shayna Malhotra on 07-13-2022 Urea nitrogen [Mass/Vol] 16 mg/dL 7-18 [facility] Thin prep Papanicolaou smear with manual screeningOrdered By: Shayna Malhotra on 07-13-2022 Thin prep Papanicolaou smear with manual screening 48 U/L 15-37 [facility] Comment on above: Slight Hemolysis, Re sult may be falsely increased. Thin prep Papanicolaou smear with manual screening 8 5-15 [facility] Absolute lymphocyte countOrd ered By: [facility] on 06-08-2022 Lymphocytes Auto (Unsp spec) [#/Vol] 1.23 10*3/uL 0.83-4.51 [facility] Basophil percentageOrdered B y: [facility] on 06-08-2022 Basophils/100 WBC (Bld) 0.6 % 0-1 [facility] Bilirubin [Mass/Vol] 0.50 mg/dL 0.20-1.00 [facility] Comment on above: For patients on eltr ombopag therapy, use of Dimension [place] TBIL is not recommended. Chloride [Moles/Vol] 103 mmol/L 98-107 [facility] Cholesterol [Mass/Vol] 116 mg/dL <200 [facility] Comment on above: <200 mg/dL Desirable 200-240 mg/dL Borderline >240 mg/dL High Risk Eosinophils/100 WBC (Bld) 3.3 % 0-5 [facility] Glucose [Mass/Vol] 266 mg/dL 74-106 [facility] Comment on above: Glucose result great er than or equal to 200 mg/dLsuggests DIABETES MELLITUS per A.D.A. criteria. Neutrophils (Bld) [#/Vol] 2.9 10*3/uL 2.0-7.7 [facility] Neutrophils/100 WBC (Bld) 61.4 % 47-70 [facility] Potassium [Moles/Vol] 4.3 mmol/L 3.5-5.1 [facility] Protein [Mass/Vol] 7.6 g/dL 6.4-8.2 [facility] Sodium [Moles/Vol] 134 mmol/L 136-145 [facility] Triglyceride [Mass/Vol] 86 mg/dL <199 [facility] Comment on above: The drugs N-Acetylcy steine and Metamizole may falsely depress this assay.Serum Triglycerides Reference Interval Normal <150 mg/dL Borderline high 150 - 199 mg/dL High 200 - 499 mg/dL Very High > or = 500 mg/dL WBC (Bld) [#/Vol] 4.8 10*3/uL 4.4-11.0 [facility] Blood erythrocytes count (nu mber/volume)Ordered By: [facility] on 06-08-2022 RBC (Bld) [#/Vol] 4.47 10*6/uL 4.2-5.4 [facility] Blood hemoglobin measurement (mass/volume)Ordered By: [facility] on 06-08-2022 Hemoglobin (Bld) [Mass/Vol] 12.4 g/dL 12.0-15.0 [facility] Blood lymphocytes/100 leukoc ytesOrdered By: [facility] on 06-08-2022 Lymphocytes/100 WBC (Bld) 25.7 % 19-41 [facility] Blood monocytes/100 leukocyt esOrdered By: [facility] on 06-08-2022 Monocytes/100 WBC (Bld) 8.8 % 0-10 [facility] Blood platelet mean volumeOr dered By: [facility] on 06-08-2022 Platelet mean volume (Bld) [Entitic vol] 11.1 fL 6.2-12.0 [facility] Determination of erythrocyte mean corpuscular volume (MCV)Ordered By: [facility] on 06-08-2022 MCV (RBC) [Entitic vol] 88.8 fL 81-99 [facility] Hematocrit Auto (Bld) [Volum e fraction]Ordered By: [facility] on 06-08-2022 Hematocrit (Bld) [Volume fraction] 39.7 % 37-47 [facility] Laboratory - Chemistry and C hemistry - challengeOrdered By: [facility] on 06-08-2022 ALP [Catalytic activity/Vol] 142 U/L 45-117 [facility] ALT [Catalytic activity/Vol] 36 U/L 13-56 [facility] CO2 [Moles/Vol] 22.0 mmol/L 21.0-32.0 [facility] Globulin (S) [Mass/Vol] 4.8 g/dL 2.2-4.2 [facility] Urea nitrogen/Creatinine [Mass ratio] 17.1 mg/mg 10-20 [facility] Laboratory - Hematology and Cell countsOrdered By: [facility] on 06-08-2022 Erythrocyte distribution width (RBC) [Entitic vol] 48.8 fL 35.1-43.9 [facility] Erythrocyte distribution width (RBC) [Ratio] 14.9 % 11.6-14.6 [facility] Immature granulocytes/100 WBC (Bld) 0.200 % 0.0-0.9 [facility] Comment on above: IG% - Immature Granu locytes (promyelocytes, myelocytes and metamyelocytes) > 1% indicates that a LEFT SHIFT is Present. MCH (RBC) [Entitic mass] 27.7 pg 27.0-32.0 [facility] Nucleated RBC/100 WBC (Bld) [Ratio] 0 % 0-5 [facility] MCHC Auto (RBC) [Mass/Vol]Or dered By: [facility] on 06-08-2022 MCHC (RBC) [Mass/Vol] 31.2 g/dL 32-36 [facility] No Panel InformationOrdered By: [facility] on 06-08-2022 Estimated GFR (MDRD) Amer 82 mL/min >60 [facility] Comment on above: GFR Calc Estimated GFR (MDRD) Non-Af Amer 68 mL/min >60 [facility] Comment on above: Non- GFR Calc Vitamin D 25-Hydroxy 56.8 ng/mL [facility] Comment on above: Vitamin D 25(OH) Sta tus Range Deficiency <20 ng/mL (50nmol/L) Insufficiency 20 - 30 ng/mL (50 - 75 nmol/L) Sufficiency 30 - 100 ng/mL (75 - 250 nmol/L) Toxicity >100 ng/mL (>250 nmol/L) Platelets bldOrdered By: [facility] on 06-08-2022 Platelets (Bld) [#/Vol] 145 10*3/uL 150-450 [facility] Serum or plasma albumin kim urement (mass/volume)Ordered By: [facility] on 06-08-2022 Albumin [Mass/Vol] 2.8 g/dL 3.2-5.0 [facility] Serum or plasma albumin/glob ulin mass ratioOrdered By: [facility] on 06-08-2022 Albumin/Globulin [Mass ratio] 0.6 {ratio} 0.9-2.4 [facility] Serum or plasma calcium kim urement (mass/volume)Ordered By: [facility] on 06-08-2022 Calcium [Mass/Vol] 9.0 mg/dL 8.5-10.1 [facility] Serum or plasma cholesterol in HDL measurement (mass/volume)Ordered By: [facility] on 06-08-2022 Cholesterol in HDL [Mass/Vol] 58 mg/dL >40 [facility] Comment on above: The drugs N-Acetylcy steine and Metamizole may falsely depress this assay. Reference Range HDL <40 mg/dL Low HDL Cholesterol HDL >or= 60 mg/dL High HDL Cholesterol Serum or plasma cholesterol in VLDL measurement (mass/volume)Ordered By: [facility] on 06-08-2022 Cholesterol in VLDL [Mass/Vol] 17 mg/dL 5-40 [facility] Serum or plasma creatinine m easurement (mass/volume)Ordered By: [facility] on 06-08-2022 Creatinine [Mass/Vol] 0.88 mg/dL 0.55-1.02 [facility] Comment on above: The validity of the calculated GFR & GFRAA in patients over 70 years has not been determined. Clinical correlation is essential. Serum or plasma low density lipoprotein (LDL) cholesterol measurement (mass/volume)Ordered By: [facility] on 06-08-2022 Cholesterol in LDL [Mass/Vol] 41 mg/dL 0-130 [facility] Serum or plasma urea nitroge n measurement (mass/volume)Ordered By: [facility] on 06-08-2022 Urea nitrogen [Mass/Vol] 15 mg/dL 7-18 [facility] Thin prep Papanicolaou smear with manual screeningOrdered By: [facility] on 06-08-2022 Thin prep Papanicolaou smear with manual screening 39 U/L 15-37 [facility] Thin prep Papanicolaou smear with manual screening 9 5-15 [facility] Whole blood hemoglobin A1c/t otal hemoglobin ratio (mass fraction)Ordered By: [facility] on 06-08-2022 HbA1c (Bld) [Mass fraction] 8.8 % 3.8-5.6 [facility] Comment on above: Normal < 5.7 % Predi abetic 5.7 - 6.4 % Diabetic >or= 6.5 % Please note range changes. Absolute lymphocyte countOrd ered By: Shayna Malhotra on 04-13-2022 Lymphocytes Auto (Unsp spec) [#/Vol] 1.30 10*3/uL 0.83-4.51 [facility] Basophil percentageOrdered B y: Shayna Malhotra on 04-13-2022 Basophils/100 WBC (Bld) 0.2 % 0-1 [facility] Bilirubin [Mass/Vol] 0.40 mg/dL 0.20-1.00 [facility] Comment on above: For patients on eltr ombopag therapy, use of Dimension [place] TBIL is not recommended. Chloride [Moles/Vol] 106 mmol/L 98-107 [facility] Eosinophils/100 WBC (Bld) 3.5 % 0-5 [facility] Glucose [Mass/Vol] 149 mg/dL 74-106 [facility] Comment on above: Fasting Glucose resu lt greater than or equal to 126 mg/dL suggests DIABETES MELLITUS per A.D.A. criteria. Neutrophils (Bld) [#/Vol] 2.5 10*3/uL 2.0-7.7 [facility] Neutrophils/100 WBC (Bld) 54.6 % 47-70 [facility] Potassium [Moles/Vol] 4.5 mmol/L 3.5-5.1 [facility] Protein [Mass/Vol] 7.8 g/dL 6.4-8.2 [facility] Sodium [Moles/Vol] 138 mmol/L 136-145 [facility] WBC (Bld) [#/Vol] 4.6 10*3/uL 4.4-11.0 [facility] Blood erythrocytes count (nu mber/volume)Ordered By: Shayna Malhotra on 04-13-2022 RBC (Bld) [#/Vol] 4.45 10*6/uL 4.2-5.4 [facility] Blood hemoglobin measurement (mass/volume)Ordered By: Shayna Malhotra on 04-13-2022 Hemoglobin (Bld) [Mass/Vol] 12.9 g/dL 12.0-15.0 [facility] Blood lymphocytes/100 leukoc ytesOrdered By: Shayna Malhotra on 04-13-2022 Lymphocytes/100 WBC (Bld) 28.4 % 19-41 [facility] Blood monocytes/100 leukocyt esOrdered By: Shayna Malhotra on 04-13-2022 Monocytes/100 WBC (Bld) 12.9 % 0-10 [facility] Blood platelet mean volumeOr dered By: Shayna Malhotra on 04-13-2022 Platelet mean volume (Bld) [Entitic vol] 11.1 fL 6.2-12.0 [facility] Determination of erythrocyte mean corpuscular volume (MCV)Ordered By: Shayna Malhotra on 04-13-2022 MCV (RBC) [Entitic vol] 90.8 fL 81-99 [facility] Hematocrit Auto (Bld) [Volum e fraction]Ordered By: Shayna Malhotra on 04-13-2022 Hematocrit (Bld) [Volume fraction] 40.4 % 37-47 [facility] Laboratory - Chemistry and C hemistry - challengeOrdered By: Shayna Malhotra on 04-13-2022 ALP [Catalytic activity/Vol] 144 U/L 45-117 [facility] ALT [Catalytic activity/Vol] 32 U/L 13-56 [facility] CO2 [Moles/Vol] 23.0 mmol/L 21.0-32.0 [facility] Globulin (S) [Mass/Vol] 4.8 g/dL 2.2-4.2 [facility] Urea nitrogen/Creatinine [Mass ratio] 15.3 mg/mg 10-20 [facility] Laboratory - Hematology and Cell countsOrdered By: Shayna Malhotra on 04-13-2022 Erythrocyte distribution width (RBC) [Entitic vol] 47.8 fL 35.1-43.9 [facility] Erythrocyte distribution width (RBC) [Ratio] 14.3 % 11.6-14.6 [facility] Immature granulocytes/100 WBC (Bld) 0.400 % 0.0-0.9 [facility] Comment on above: IG% - Immature Granu locytes (promyelocytes, myelocytes and metamyelocytes) > 1% indicates that a LEFT SHIFT is Present. MCH (RBC) [Entitic mass] 29.0 pg 27.0-32.0 [facility] Nucleated RBC/100 WBC (Bld) [Ratio] 0 % 0-5 [facility] MCHC Auto (RBC) [Mass/Vol]Or dered By: Shayna Malhotra on 04-13-2022 MCHC (RBC) [Mass/Vol] 31.9 g/dL 32-36 [facility] No Panel InformationOrdered By: Shayna Malhotra on 04-13-2022 Estimated GFR (MDRD) Amer 78 mL/min >60 [facility] Comment on above: GFR Calc Estimated GFR (MDRD) Non-Af Amer 65 mL/min >60 [facility] Comment on above: Non- GFR Calc Vitamin D 25-Hydroxy 63.8 ng/mL [facility] Comment on above: Vitamin D 25(OH) Sta tus Range Deficiency <20 ng/mL (50nmol/L) Insufficiency 20 - 30 ng/mL (50 - 75 nmol/L) Sufficiency 30 - 100 ng/mL (75 - 250 nmol/L) Toxicity >100 ng/mL (>250 nmol/L) Platelets bldOrdered By: Evi Malhotra on 04-13-2022 Platelets (Bld) [#/Vol] 157 10*3/uL 150-450 [facility] Serum or plasma albumin kim urement (mass/volume)Ordered By: Shayna Malhotra on 04-13-2022 Albumin [Mass/Vol] 3.0 g/dL 3.2-5.0 [facility] Serum or plasma albumin/glob ulin mass ratioOrdered By: Shayna Malhotra on 04-13-2022 Albumin/Globulin [Mass ratio] 0.6 {ratio} 0.9-2.4 [facility] Serum or plasma calcium kim urement (mass/volume)Ordered By: Shayna Malhotra on 04-13-2022 Calcium [Mass/Vol] 9.0 mg/dL 8.5-10.1 [facility] Serum or plasma creatinine m easurement (mass/volume)Ordered By: Shayna Malhotra on 04-13-2022 Creatinine [Mass/Vol] 0.92 mg/dL 0.55-1.02 [facility] Comment on above: The validity of the calculated GFR & GFRAA in patients over 70 years has not been determined. Clinical correlation is essential. Serum or plasma urea nitroge n measurement (mass/volume)Ordered By: Shayna Malhotra on 04-13-2022 Urea nitrogen [Mass/Vol] 14 mg/dL 7-18 [facility] Thin prep Papanicolaou smear with manual screeningOrdered By: Shayna Malhotra on 04-13-2022 Thin prep Papanicolaou smear with manual screening 40 U/L 15-37 [facility] Thin prep Papanicolaou smear with manual screening 9 5-15 [facility] Basophil percentageon 07-29- 2022 Bilirubin [Mass/Vol] 0.80 mg/dL 0.20-1.00 [facility] Work Phone: Comment on above: For patients on eltr ombopag therapy, use of Dimension [place] TBIL is not recommended. Chloride [Moles/Vol] 103 mmol/L 98-107 [facility] Work Phone: Glucose [Mass/Vol] 218 mg/dL 74-106 [facility] Work Phone: Comment on above: Glucose result great er than or equal to 200 mg/dLsuggests DIABETES MELLITUS per A.D.A. criteria. Potassium [Moles/Vol] 4.2 mmol/L 3.5-5.1 [facility] Work Phone: Protein [Mass/Vol] 8.0 g/dL 6.4-8.2 [facility] Work Phone: Sodium [Moles/Vol] 135 mmol/L 136-145 [facility] Work Phone: WBC (Bld) [#/Vol] 8.6 10*3/uL 4.4-11.0 [facility] Work Phone: Blood erythrocytes count (nu mber/volume)on 01-01-2022 RBC (Bld) [#/Vol] 4.72 10*6/uL 4.2-5.4 [facility] Work Phone: Blood hemoglobin measurement (mass/volume)on 01-01-2022 Hemoglobin (Bld) [Mass/Vol] 13.5 g/dL 12.0-15.0 [facility] Work Phone: Blood platelet mean volumeon 01-01-2022 Platelet mean volume (Bld) [Entitic vol] 11.0 fL 6.2-12.0 [facility] Work Phone: Determination of erythrocyte mean corpuscular volume (MCV)on 01-01-2022 MCV (RBC) [Entitic vol] 86.2 fL 81-99 [facility] Work Phone: Hematocrit Auto (Bld) [Volum e fraction]on 01-01-2022 Hematocrit (Bld) [Volume fraction] 40.7 % 37-47 [facility] Work Phone: Laboratory - Chemistry and C hemistry - challengeon 01-01-2022 ALP [Catalytic activity/Vol] 140 U/L 45-117 [facility] Work Phone: ALT [Catalytic activity/Vol] 35 U/L 13-56 [facility] Work Phone: CO2 [Moles/Vol] 23.0 mmol/L 21.0-32.0 [facility] Work Phone: Globulin (S) [Mass/Vol] 4.9 g/dL 2.2-4.2 [facility] Work Phone: Urea nitrogen/Creatinine [Mass ratio] 13.8 mg/mg 10-20 [facility] Work Phone: Laboratory - Hematology and Cell countson 01-01-2022 Erythrocyte distribution width (RBC) [Entitic vol] 55.6 fL 35.1-43.9 [facility] Work Phone: Erythrocyte distribution width (RBC) [Ratio] 17.5 % 11.6-14.6 [facility] Work Phone: MCH (RBC) [Entitic mass] 28.6 pg 27.0-32.0 [facility] Work Phone: MCHC Auto (RBC) [Mass/Vol]on 01-01-2022 MCHC (RBC) [Mass/Vol] 33.2 g/dL 32-36 [facility] Work Phone: No Panel Informationon 01-01 Estimated GFR (MDRD) Amer 64 mL/min >60 [facility] Work Phone: Comment on above: GFR Calc Estimated GFR (MDRD) Non-Af Amer 53 mL/min >60 [facility] Work Phone: Comment on above: Non- GFR Calc Platelets bldon 01-01-2022 Platelets (Bld) [#/Vol] 141 10*3/uL 150-450 [facility] Work Phone: Serum or plasma albumin kim urement (mass/volume)on 01-01-2022 Albumin [Mass/Vol] 3.1 g/dL 3.2-5.0 [facility] Work Phone: Serum or plasma albumin/glob ulin mass ratioon 01-01-2022 Albumin/Globulin [Mass ratio] 0.6 {ratio} 0.9-2.4 [facility] Work Phone: Serum or plasma calcium kim urement (mass/volume)on 01-01-2022 Calcium [Mass/Vol] 9.3 mg/dL 8.5-10.1 [facility] Work Phone: Serum or plasma creatinine m easurement (mass/volume)on 01-01-2022 Creatinine [Mass/Vol] 1.09 mg/dL 0.55-1.02 [facility] Work Phone: Comment on above: The validity of the calculated GFR & GFRAA in patients over 70 years has not been determined. Clinical correlation is essential. Serum or plasma urea nitroge n measurement (mass/volume)on 01-01-2022 Urea nitrogen [Mass/Vol] 15 mg/dL 7-18 [facility] Work Phone: Thin prep Papanicolaou smear with manual screeningon 01-01-2022 Thin prep Papanicolaou smear with manual screening 36 U/L 15-37 [facility] Work Phone: Thin prep Papanicolaou smear with manual screening 9 5-15 [facility] Work Phone: Whole blood hemoglobin A1c/t otal hemoglobin ratio (mass fraction)on 01-01-2022 HbA1c (Bld) [Mass fraction] 8.7 % 3.8-5.6 [facility] Work Phone: Comment on above: Normal < 5.7 % Predi abetic 5.7 - 6.4 % Diabetic >or= 6.5 % Please note range changes. Basophil percentageon 2021 Bilirubin [Mass/Vol] 0.40 mg/dL 0.20-1.00 [facility] Work Phone: Comment on above: For patients on eltr ombopag therapy, use of Dimension [place] TBIL is not recommended. Chloride [Moles/Vol] 103 mmol/L 98-107 [facility] Work Phone: Glucose [Mass/Vol] 216 mg/dL 74-106 [facility] Work Phone: Comment on above: Glucose result great er than or equal to 200 mg/dLsuggests DIABETES MELLITUS per A.D.A. criteria. Potassium [Moles/Vol] 4.4 mmol/L 3.5-5.1 [facility] Work Phone: Protein [Mass/Vol] 6.5 g/dL 6.4-8.2 [facility] Work Phone: Sodium [Moles/Vol] 136 mmol/L 136-145 [facility] Work Phone: WBC (Bld) [#/Vol] 6.2 10*3/uL 4.4-11.0 [facility] Work Phone: Blood erythrocytes count (nu mber/volume)on 12-01-2021 RBC (Bld) [#/Vol] 4.09 10*6/uL 4.2-5.4 [facility] Work Phone: Blood hemoglobin measurement (mass/volume)on 12-01-2021 Hemoglobin (Bld) [Mass/Vol] 11.3 g/dL 12.0-15.0 [facility] Work Phone: Blood platelet mean volumeon 12-01-2021 Platelet mean volume (Bld) [Entitic vol] 10.8 fL 6.2-12.0 [facility] Work Phone: Determination of erythrocyte mean corpuscular volume (MCV)on 12-01-2021 MCV (RBC) [Entitic vol] 85.8 fL 81-99 [facility] Work Phone: Comment on above: Delta: 79.2 on 11/27 Hematocrit Auto (Bld) [Volum e fraction]on 12-01-2021 Hematocrit (Bld) [Volume fraction] 35.1 % 37-47 [facility] Work Phone: Laboratory - Chemistry and C hemistry - challengeon 12-01-2021 ALP [Catalytic activity/Vol] 130 U/L 45-117 [facility] Work Phone: ALT [Catalytic activity/Vol] 48 U/L 13-56 [facility] Work Phone: CK [Catalytic activity/Vol] 27 U/L 26-192 [facility] Work Phone: CO2 [Moles/Vol] 27.0 mmol/L 21.0-32.0 [facility] Work Phone: Globulin (S) [Mass/Vol] 4.2 g/dL 2.2-4.2 [facility] Work Phone: Urea nitrogen/Creatinine [Mass ratio] 31.2 mg/mg 10-20 [facility] Work Phone: Laboratory - Hematology and Cell countson 12-01-2021 Erythrocyte distribution width (RBC) [Entitic vol] 48.3 fL 35.1-43.9 [facility] Work Phone: Erythrocyte distribution width (RBC) [Ratio] 15.4 % 11.6-14.6 [facility] Work Phone: MCH (RBC) [Entitic mass] 27.6 pg 27.0-32.0 [facility] Work Phone: MCHC Auto (RBC) [Mass/Vol]on 12-01-2021 MCHC (RBC) [Mass/Vol] 32.2 g/dL 32-36 [facility] Work Phone: Comment on above: Delta: 34.7 on 11/27 No Panel Informationon 12-01 Estimated GFR (MDRD) Amer 91 mL/min >60 [facility] Work Phone: Comment on above: GFR Calc Estimated GFR (MDRD) Non-Af Amer 76 mL/min >60 [facility] Work Phone: Comment on above: Non- GFR Calc Platelets bldon 12-01-2021 Platelets (Bld) [#/Vol] 231 10*3/uL 150-450 [facility] Work Phone: Serum or plasma albumin kim urement (mass/volume)on 12-01-2021 Albumin [Mass/Vol] 2.3 g/dL 3.2-5.0 [facility] Work Phone: Serum or plasma albumin/glob ulin mass ratioon 12-01-2021 Albumin/Globulin [Mass ratio] 0.5 {ratio} 0.9-2.4 [facility] Work Phone: Serum or plasma calcium kim urement (mass/volume)on 12-01-2021 Calcium [Mass/Vol] 8.8 mg/dL 8.5-10.1 [facility] Work Phone: Serum or plasma creatinine m easurement (mass/volume)on 12-01-2021 Creatinine [Mass/Vol] 0.80 mg/dL 0.55-1.02 [facility] Work Phone: Comment on above: The validity of the calculated GFR & GFRAA in patients over 70 years has not been determined. Clinical correlation is essential. Serum or plasma urea nitroge n measurement (mass/volume)on 12-01-2021 Urea nitrogen [Mass/Vol] 25 mg/dL 7-18 [facility] Work Phone: Thin prep Papanicolaou smear with manual screeningon 12-01-2021 Thin prep Papanicolaou smear with manual screening 69 U/L 15-37 [facility] Work Phone: Thin prep Papanicolaou smear with manual screening 6 5-15 [facility] Work Phone: Whole blood hemoglobin A1c/t otal hemoglobin ratio (mass fraction)on 12-01-2021 HbA1c (Bld) [Mass fraction] 10.6 % 3.8-5.6 [facility] Work Phone: Comment on above: Normal < 5.7 % Predi abetic 5.7 - 6.4 % Diabetic >or= 6.5 % Please note range changes. Basophil percentageon 2021 Bilirubin [Mass/Vol] 0.40 mg/dL 0.20-1.00 [facility] Work Phone: Comment on above: For patients on eltr ombopag therapy, use of Dimension [place] TBIL is not recommended. Chloride [Moles/Vol] 102 mmol/L 98-107 [facility] Work Phone: Glucose [Mass/Vol] 256 mg/dL 74-106 [facility] Work Phone: Comment on above: Glucose result great er than or equal to 200 mg/dLsuggests DIABETES MELLITUS per A.D.A. criteria. Potassium [Moles/Vol] 4.4 mmol/L 3.5-5.1 [facility] Work Phone: Protein [Mass/Vol] 7.0 g/dL 6.4-8.2 [facility] Work Phone: Sodium [Moles/Vol] 133 mmol/L 136-145 [facility] Work Phone: WBC (Bld) [#/Vol] 5.6 10*3/uL 4.4-11.0 [facility] Work Phone: Blood erythrocytes count (nu mber/volume)on 11-27-2021 RBC (Bld) [#/Vol] 4.47 10*6/uL 4.2-5.4 [facility] Work Phone: Blood hemoglobin measurement (mass/volume)on 11-27-2021 Hemoglobin (Bld) [Mass/Vol] 12.3 g/dL 12.0-15.0 [facility] Work Phone: Blood platelet mean volumeon 06-24-2022 Platelet mean volume (Bld) [Entitic vol] 11.9 fL 6.2-12.0 [facility] Work Phone: Determination of erythrocyte mean corpuscular volume (MCV)on 11-27-2021 MCV (RBC) [Entitic vol] 79.2 fL 81-99 [facility] Work Phone: Comment on above: Delta: 83.4 on 11/24-533 Hematocrit Auto (Bld) [Volum e fraction]on 11-27-2021 Hematocrit (Bld) [Volume fraction] 35.4 % 37-47 [facility] Work Phone: Laboratory - Chemistry and C hemistry - challengeon 11-27-2021 ALP [Catalytic activity/Vol] 127 U/L 45-117 [facility] Work Phone: ALT [Catalytic activity/Vol] 28 U/L 13-56 [facility] Work Phone: CO2 [Moles/Vol] 25.0 mmol/L 21.0-32.0 [facility] Work Phone: Globulin (S) [Mass/Vol] 4.6 g/dL 2.2-4.2 [facility] Work Phone: Urea nitrogen/Creatinine [Mass ratio] 15.9 mg/mg 10-20 [facility] Work Phone: Laboratory - Hematology and Cell countson 11-27-2021 Erythrocyte distribution width (RBC) [Entitic vol] 41.4 fL 35.1-43.9 [facility] Work Phone: Erythrocyte distribution width (RBC) [Ratio] 14.5 % 11.6-14.6 [facility] Work Phone: MCH (RBC) [Entitic mass] 27.5 pg 27.0-32.0 [facility] Work Phone: MCHC Auto (RBC) [Mass/Vol]on 11-27-2021 MCHC (RBC) [Mass/Vol] 34.7 g/dL 32-36 [facility]: No Panel Informationon 11-27 Estimated GFR (MDRD) Amer 108 mL/min >60 [facility] Work Phone: Comment on above: GFR Calc Estimated GFR (MDRD) Non-Af Amer 89 mL/min >60 [facility] Work Phone: Comment on above: Non- GFR Calc Platelets bldon 11-27-2021 Platelets (Bld) [#/Vol] 154 10*3/uL 150-450 [facility] Work Phone: Serum or plasma albumin kim urement (mass/volume)on 11-27-2021 Albumin [Mass/Vol] 2.4 g/dL 3.2-5.0 [facility] Work Phone: Serum or plasma albumin/glob ulin mass ratioon 11-27-2021 Albumin/Globulin [Mass ratio] 0.5 {ratio} 0.9-2.4 [facility] Work Phone: Serum or plasma calcium kim urement (mass/volume)on 11-27-2021 Calcium [Mass/Vol] 8.9 mg/dL 8.5-10.1 [facility] Work Phone: Serum or plasma creatinine m easurement (mass/volume)on 11-27-2021 Creatinine [Mass/Vol] 0.69 mg/dL 0.55-1.02 [facility] Work Phone: Comment on above: The validity of the calculated GFR & GFRAA in patients over 70 years has not been determined. Clinical correlation is essential. Serum or plasma urea nitroge n measurement (mass/volume)on 11-27-2021 Urea nitrogen [Mass/Vol] 11 mg/dL 7-18 [facility] Work Phone: Thin prep Papanicolaou smear with manual screeningon 11-27-2021 Thin prep Papanicolaou smear with manual screening 31 U/L 15-37 [facility] Work Phone: Thin prep Papanicolaou smear with manual screening 6 5-15 [facility] Work Phone: Absolute lymphocyte counton 11-24-2021 Lymphocytes Auto (Unsp spec) [#/Vol] 1.01 10*3/uL 0.83-4.51 [facility] Work Phone: Basophil percentageon 2021 Basophil percentage 3.5 mg/dL 2.5-4.9 [facility] Work Phone: Basophils/100 WBC (Bld) 0.4 % 0-1 [facility] Work Phone: Bilirubin [Mass/Vol] 0.40 mg/dL 0.20-1.00 [facility] Work Phone: Comment on above: For patients on eltr ombopag therapy, use of Dimension [place] TBIL is not recommended. Chloride [Moles/Vol] 105 mmol/L 98-107 [facility] Work Phone: Eosinophils/100 WBC (Bld) 2.3 % 0-5 [facility] Work Phone: Glucose [Mass/Vol] 321 mg/dL 74-106 [facility] Work Phone: Comment on above: Glucose result great er than or equal to 200 mg/dLsuggests DIABETES MELLITUS per A.D.A. criteria. Neutrophils (Bld) [#/Vol] 3.8 10*3/uL 2.0-7.7 [facility] Work Phone: Neutrophils/100 WBC (Bld) 66.8 % 47-70 [facility] Work Phone: Potassium [Moles/Vol] 4.2 mmol/L 3.5-5.1 [facility] Work Phone: Protein [Mass/Vol] 6.6 g/dL 6.4-8.2 [facility] Work Phone: Sodium [Moles/Vol] 133 mmol/L 136-145 [facility] Work Phone: WBC (Bld) [#/Vol] 5.6 10*3/uL 4.4-11.0 [facility] Work Phone: Blood erythrocytes count (nu mber/volume)on 11-24-2021 RBC (Bld) [#/Vol] 3.91 10*6/uL 4.2-5.4 [facility] Work Phone: Blood hemoglobin measurement (mass/volume)on 11-24-2021 Hemoglobin (Bld) [Mass/Vol] 11.0 g/dL 12.0-15.0 [facility] Work Phone: Blood lymphocytes/100 leukoc yteson 11-24-2021 Lymphocytes/100 WBC (Bld) 17.9 % 19-41 [facility] Work Phone: Blood monocytes/100 leukocyt eson 11-24-2021 Monocytes/100 WBC (Bld) 12.1 % 0-10 [facility] Work Phone: Blood platelet mean volumeon 11-24-2021 Platelet mean volume (Bld) [Entitic vol] 11.4 fL 6.2-12.0 [facility] Work Phone: Determination of erythrocyte mean corpuscular volume (MCV)on 11-24-2021 MCV (RBC) [Entitic vol] 83.4 fL 81-99 [facility] Work Phone: Glucose Glucometer (BldC) [M ass/Vol]on 11-24-2021 Glucose [Mass/Vol] 307 mg/dL 74-106 [facility] Work Phone: Comment on above: MANAGEMENT OF PATIEN T CARE PER NURSING PROTOCOL Glucose [Mass/Vol] 339 mg/dL 74-106 [facility] Work Phone: Comment on above: MANAGEMENT OF PATIEN T CARE PER NURSING PROTOCOL Hematocrit Auto (Bld) [Volum e fraction]on 11-24-2021 Hematocrit (Bld) [Volume fraction] 32.6 % 37-47 [facility] Work Phone: Laboratory - Chemistry and C hemistry - challengeon 11-24-2021 ALP [Catalytic activity/Vol] 116 U/L 45-117 [facility] Work Phone: ALT [Catalytic activity/Vol] 33 U/L 13-56 [facility] Work Phone: CK [Catalytic activity/Vol] 500 U/L 26-192 [facility] Work Phone: CO2 [Moles/Vol] 22.0 mmol/L 21.0-32.0 [facility] Work Phone: Globulin (S) [Mass/Vol] 4.4 g/dL 2.2-4.2 [facility] Work Phone: Magnesium [Mass/Vol] 2.3 mg/dL 1.6-2.6 [facility] Work Phone: Urea nitrogen/Creatinine [Mass ratio] 24.3 mg/mg 10-20 [facility] Work Phone: Laboratory - Hematology and Cell countson 11-24-2021 Erythrocyte distribution width (RBC) [Entitic vol] 45.1 fL 35.1-43.9 [facility] Work Phone: Erythrocyte distribution width (RBC) [Ratio] 14.9 % 11.6-14.6 [facility] Work Phone: Immature granulocytes/100 WBC (Bld) 0.500 % 0.0-0.9 [facility] Work Phone: Comment on above: IG% - Immature Granu locytes (promyelocytes, myelocytes and metamyelocytes) > 1% indicates that a LEFT SHIFT is Present. MCH (RBC) [Entitic mass] 28.1 pg 27.0-32.0 [facility] Work Phone: Nucleated RBC/100 WBC (Bld) [Ratio] 0 % 0-5 [facility] Work Phone: MCHC Auto (RBC) [Mass/Vol]on 11-24-2021 MCHC (RBC) [Mass/Vol] 33.7 g/dL 32-36 [facility] Work Phone: No Panel Informationon 11-24 Estimated Creatinine Clearance Calc 51.54 ml/min [facility] Work Phone: Estimated GFR (MDRD) Amer 76 mL/min >60 [facility] Work Phone: Comment on above: GFR Calc Estimated GFR (MDRD) Non-Af Amer 62 mL/min >60 [facility] Work Phone: Comment on above: Non- GFR Calc Platelets bldon 11-24-2021 Platelets (Bld) [#/Vol] 107 10*3/uL 150-450 [facility] Work Phone: Serum or plasma albumin kim urement (mass/volume)on 11-24-2021 Albumin [Mass/Vol] 2.2 g/dL 3.2-5.0 [facility] Work Phone: Serum or plasma albumin/glob ulin mass ratioon 11-24-2021 Albumin/Globulin [Mass ratio] 0.5 {ratio} 0.9-2.4 [facility] Work Phone: Serum or plasma calcium kim urement (mass/volume)on 11-24-2021 Calcium [Mass/Vol] 8.5 mg/dL 8.5-10.1 [facility] Work Phone: Serum or plasma creatinine m easurement (mass/volume)on 11-24-2021 Creatinine [Mass/Vol] 0.94 mg/dL 0.55-1.02 [facility] Work Phone: Comment on above: The validity of the calculated GFR & GFRAA in patients over 70 years has not been determined. Clinical correlation is essential. Serum or plasma urea nitroge n measurement (mass/volume)on 11-24-2021 Urea nitrogen [Mass/Vol] 23 mg/dL 7-18 [facility] Work Phone: Thin prep Papanicolaou smear with manual screeningon 11-24-2021 Thin prep Papanicolaou smear with manual screening 49 U/L 15-37 [facility] Work Phone: Thin prep Papanicolaou smear with manual screening 6 5-15 [facility] Work Phone: Absolute lymphocyte counton 11-22-2021 Lymphocytes Auto (Unsp spec) [#/Vol] 0.27 10*3/uL 0.83-4.51 [facility] Work Phone: Basophil percentageon 2021 Lactate [Moles/Vol] 2.7 mmol/L 0.4-2.0 [facility] Work Phone: Comment on above: Critical Result(s) C alled at: 19:01:05 11/22/2021 by: Sintia Hernandez to Pamela Ely Results read back by same. Basophil percentage >100 SEEN /hpf 0-5 [facility] Work Phone: Lactate [Moles/Vol] 4.1 mmol/L 0.4-2.0 [facility] Work Phone: Comment on above: Critical Result(s) C alled at: 14:35:39 11/22/2021 by: Derik Florez. To Julia Cordova RN (ER). Results read back by same. Basophils/100 WBC (Bld) 0.3 % 0-1 [facility] Work Phone: Bilirubin [Mass/Vol] 1.00 mg/dL 0.20-1.00 [facility] Work Phone: Comment on above: For patients on eltr ombopag therapy, use of Dimension [place] TBIL is not recommended. Chloride [Moles/Vol] 97 mmol/L 98-107 [facility] Work Phone: Eosinophils/100 WBC (Bld) 0.0 % 0-5 [facility] Work Phone: Glucose [Mass/Vol] 358 mg/dL 74-106 [facility] Work Phone: Comment on above: Glucose result great er than or equal to 200 mg/dLsuggests DIABETES MELLITUS per A.D.A. criteria. Neutrophils (Bld) [#/Vol] 2.6 10*3/uL 2.0-7.7 [facility] Work Phone: Neutrophils/100 WBC (Bld) 89.3 % 47-70 [facility] Work Phone: Potassium [Moles/Vol] 4.9 mmol/L 3.5-5.1 [facility] Work Phone: Comment on above: Moderate Hemolysis, Result may be falsely increased. Protein [Mass/Vol] 7.8 g/dL 6.4-8.2 [facility] Work Phone: Sodium [Moles/Vol] 130 mmol/L 136-145 [facility] Work Phone: WBC (Bld) [#/Vol] 2.9 10*3/uL 4.4-11.0 [facility] Work Phone: Bilirubin Test strip Ql (U)o n 11-22-2021 Bilirubin Ql (U) Negative Negative [facility] Work Phone: Blood erythrocytes count (nu mber/volume)on 11-22-2021 RBC (Bld) [#/Vol] 4.66 10*6/uL 4.2-5.4 [facility] Work Phone: Blood hemoglobin measurement (mass/volume)on 11-22-2021 Hemoglobin (Bld) [Mass/Vol] 12.9 g/dL 12.0-15.0 [facility] Work Phone: Blood lymphocytes/100 leukoc yteson 11-22-2021 Lymphocytes/100 WBC (Bld) 9.4 % 19-41 [facility] Work Phone: Blood manual differential co mment interpretation (narrative result)on 11-22-2021 Manual differential comment Neftali (Bld) [Interp] SCANNED [facility] Work Phone: Comment on above: FEW BANDS NOTED Blood monocytes/100 leukocyt eson 11-22-2021 Monocytes/100 WBC (Bld) 0.7 % 0-10 [facility] Work Phone: Blood platelet mean volumeon 11-22-2021 Platelet mean volume (Bld) [Entitic vol] 11.0 fL 6.2-12.0 [facility] Work Phone: Determination of erythrocyte mean corpuscular volume (MCV)on 11-22-2021 MCV (RBC) [Entitic vol] 83.7 fL 81-99 [facility] Work Phone: Hematocrit Auto (Bld) [Volum e fraction]on 11-22-2021 Hematocrit (Bld) [Volume fraction] 39.0 % 37-47 [facility] Work Phone: INR in Blood by Coagulation assayon 11-22-2021 INR Coag (Bld) [Relative time] 1.6 {INR} [facility] Work Phone: Ketones Test strip Ql (U)on 11-22-2021 Ketones Ql (U) 15 mg/dl Negative [facility] Work Phone: Laboratory - Chemistry and C hemistry - challengeon 11-22-2021 ALP [Catalytic activity/Vol] 170 U/L 45-117 [facility] Work Phone: ALT [Catalytic activity/Vol] 33 U/L 13-56 [facility] Work Phone: CO2 [Moles/Vol] 22.0 mmol/L 21.0-32.0 [facility] Work Phone: Globulin (S) [Mass/Vol] 5.0 g/dL 2.2-4.2 [facility] Work Phone: Urea nitrogen/Creatinine [Mass ratio] 19.1 mg/mg 10-20 [facility] Work Phone: Laboratory - Coagulationon 0 11-22-2021 aPTT Coag (Bld) [Time] 33.5 s 24.1-36.2 [facility] Work Phone: PT Coag (PPP) [Time] 18.6 s 11.7-14.9 [facility] Work Phone: Laboratory - Hematology and Cell countson 06-19-2022 Erythrocyte distribution width (RBC) [Entitic vol] 44.4 fL 35.1-43.9 [facility] Work Phone: Erythrocyte distribution width (RBC) [Ratio] 14.6 % 11.6-14.6 [facility] Work Phone: Immature granulocytes/100 WBC (Bld) 0.300 % 0.0-0.9 [facility] Work Phone: Comment on above: IG% - Immature Granu locytes (promyelocytes, myelocytes and metamyelocytes) > 1% indicates that a LEFT SHIFT is Present. MCH (RBC) [Entitic mass] 27.7 pg 27.0-32.0 [facility] Work Phone: Nucleated RBC/100 WBC (Bld) [Ratio] 0 % 0-5 [facility] Work Phone: Laboratory - Microbiology an d Antimicrobial susceptibilityon 11-22-2021 SARS-CoV-2 (COVID-19) RNA SALLY+probe Ql (Unsp spec) Not detected Not Detect [facility] Work Phone: Comment on above: Normal Reference Ran ge: Not DetectedMethod:(RT-PCR) real-time reverse transcriptase PCRLuminex THA Instrument*The Food and Drug Administration (FDA) has issued an Emergency Use Authorization (EAU) for the THA SARS-CoV-2 Assay for the rapid detection of [...] 11-22-2021 MCHC (RBC) [Mass/Vol] 33.1 g/dL 32-36 [facility] Work Phone: Mucus LM Ql (Urine sed)on Mucus Ql (Urine sed) 0 SEEN /hpf [facility] Work Phone: Nitrite Test strip Ql (U)on 11-22-2021 Nitrite Ql (U) Negative Negative [facility] Work Phone: No Panel Informationon 11-22 Troponin I High Sensitivity 217 pg/mL 3.0-54.0 [facility] Work Phone: Comment on above: Critical Result(s) C alled at: 20:27:57 11/22/2021 by: Sintia Hernandez to Anthony Butcher. Results read back by same. Please Note: New Test Units and Gender Specific Reference Ranges. For more information see Policy Stat Procedure [place] High Sensitivity Troponin (TNIH) and attachments. Troponin I High Sensitivity 274 pg/mL 3.0-54.0 [facility] Work Phone: Comment on above: Critical Result(s) C alled at: 17:12:08 11/22/2021 by: Sintia Hernandez by Lila Cordova. Results read back by same. Please Note: New Test Units and Gender Specific Reference Ranges. For more information see Policy Stat Procedure [place] High Sensitivity Troponin (TNIH) and attachments. Estimated Creatinine Clearance Calc 34.36 ml/min [facility] Work Phone: Estimated GFR (MDRD) Amer 48 mL/min >60 [facility] Work Phone: Comment on above: GFR Calc Estimated GFR (MDRD) Non-Af Amer 39 mL/min >60 [facility] Work Phone: Comment on above: Non- GFR Calc Platelets bldon 11-22-2021 Platelets (Bld) [#/Vol] 121 10*3/uL 150-450 [facility] Work Phone: Protein Test strip Ql (U)on 11-22-2021 Protein Ql (U) 100 mg/dl Negative [facility] Work Phone: Review by pathologiston 11-04 Pathologist review Neftali (Unsp spec) [Interp] May foll [facility] Work Phone: Pathologist review Neftali (Unsp spec) [Interp] Reviewed [facility] Work Phone: Comment on above: Previous reported re sult: Analisa jacobson Edited by: BELLA on 11/23/21:[id number] Thrombocytopenia.Clinical correlation necessary.Cedric Cardoza M.D. 11/23/21 AMENDED REPORT 11/23/21 [id number] PATH REV previously reported as: October indira Serum or plasma albumin kim urement (mass/volume)on 11-22-2021 Albumin [Mass/Vol] 2.8 g/dL 3.2-5.0 [facility] Work Phone: Serum or plasma albumin/glob ulin mass ratioon 11-22-2021 Albumin/Globulin [Mass ratio] 0.6 {ratio} 0.9-2.4 [facility] Work Phone: Serum or plasma calcium kim urement (mass/volume)on 11-22-2021 Calcium [Mass/Vol] 8.9 mg/dL 8.5-10.1 [facility] Work Phone: Serum or plasma creatinine m easurement (mass/volume)on 11-22-2021 Creatinine [Mass/Vol] 1.41 mg/dL 0.55-1.02 [facility] Work Phone: Comment on above: The validity of the calculated GFR & GFRAA in patients over 70 years has not been determined. Clinical correlation is essential. Serum or plasma urea nitroge n measurement (mass/volume)on 11-22-2021 Urea nitrogen [Mass/Vol] 27 mg/dL 7-18 [facility] Work Phone: Squamous epithelial cells de tection in urine sediment by light microscopyon 11-22-2021 Epithelial cells.squamous LM Ql (Urine sed) 0 SEEN /hpf 5-10 [facility] Work Phone: Thin prep Papanicolaou smear with manual screeningon 11-22-2021 Thin prep Papanicolaou smear with manual screening 65 U/L 15-37 [facility] Work Phone: Comment on above: Moderate Hemolysis, Result may be falsely increased. Thin prep Papanicolaou smear with manual screening 11 5-15 [facility] Work Phone: Urine blood detectionon 11-04 RBC Ql (U) 250 /ul Negative [facility] Work Phone: RBC Ql (U) 0 SEEN /hpf 0-5 [facility] Work Phone: Urine clarityon 11-22-2021 Clarity (U) Cloudy Clear [facility] Work Phone: Urine color determinationon 11-22-2021 Color (U) Yellow Yellow [facility] Work Phone: Urine glucose detectionon Glucose Ql (U) 250 mg/dl Normal [facility] Work Phone: Urine leukocyte esterase det ection by dipstickon 11-22-2021 Leukocyte esterase Test strip Ql (U) 500 /ul Negative [facility] Work Phone: Urine pHon 11-22-2021 pH (U) 6.0 [pH] 5.0 - 8.0 [facility] Work Phone: Urine sediment bacteria coun t by microscopy (number/high power field)on 11-22-2021 Bacteria LM.HPF (Urine sed) [#/Area] 3 /[HPF] None Seen [facility] Work Phone: Urine specific gravity measu rementon 11-22-2021 Specific gravity (U) [Rel density] 1.020 1.002-1.03 0 [facility] Work Phone: Urobilinogen Auto test strip Ql (U)on 11-22-2021 Urobilinogen Ql (U) Normal mg/dl Normal [facility] Work Phone: Whole blood hemoglobin A1c/t otal hemoglobin ratio (mass fraction)on 11-22-2021 HbA1c (Bld) [Mass fraction] 10.2 % 3.8-5.6 [facility] Work Phone: Comment on above: Normal < 5.7 % Predi abetic 5.7 - 6.4 % Diabetic >or= 6.5 % Please note range changes. Whole blood hemoglobin A1c/t otal hemoglobin ratio (mass fraction)on 10-27-2021 HbA1c (Bld) [Mass fraction] 8.3 % 3.8-5.6 [facility] Work Phone: Comment on above: Normal < 5.7 % Predi abetic 5.7 - 6.4 % Diabetic >or= 6.5 % Please note range changes. Absolute lymphocyte counton 10-13-2021 Lymphocytes Auto (Unsp spec) [#/Vol] 1.22 10*3/uL 0.83-4.51 [facility] Work Phone: Basophil percentageon 2021 Basophils/100 WBC (Bld) 0.3 % 0-1 [facility] Work Phone: Bilirubin [Mass/Vol] 0.50 mg/dL 0.20-1.00 [facility] Work Phone: Comment on above: For patients on eltr ombopag therapy, use of Dimension [place] TBIL is not recommended. Chloride [Moles/Vol] 102 mmol/L 98-107 [facility] Work Phone: Eosinophils/100 WBC (Bld) 1.7 % 0-5 [facility] Work Phone: Glucose [Mass/Vol] 259 mg/dL 74-106 [facility] Work Phone: Comment on above: Glucose result great er than or equal to 200 mg/dLsuggests DIABETES MELLITUS per A.D.A. criteria. Neutrophils (Bld) [#/Vol] 5.1 10*3/uL 2.0-7.7 [facility] Work Phone: Neutrophils/100 WBC (Bld) 70.8 % 47-70 [facility] Work Phone: Potassium [Moles/Vol] 4.4 mmol/L 3.5-5.1 [facility] Work Phone: Protein [Mass/Vol] 7.4 g/dL 6.4-8.2 [facility] Work Phone: Sodium [Moles/Vol] 134 mmol/L 136-145 [facility] Work Phone: WBC (Bld) [#/Vol] 7.1 10*3/uL 4.4-11.0 [facility] Work Phone: Blood erythrocytes count (nu mber/volume)on 10-13-2021 RBC (Bld) [#/Vol] 4.21 10*6/uL 4.2-5.4 [facility] Work Phone: Blood hemoglobin measurement (mass/volume)on 10-13-2021 Hemoglobin (Bld) [Mass/Vol] 12.1 g/dL 12.0-15.0 [facility] Work Phone: Blood lymphocytes/100 leukoc yteson 10-13-2021 Lymphocytes/100 WBC (Bld) 17.1 % 19-41 [facility] Work Phone: Blood monocytes/100 leukocyt eson 10-13-2021 Monocytes/100 WBC (Bld) 9.8 % 0-10 [facility] Work Phone: Blood platelet mean volumeon 10-13-2021 Platelet mean volume (Bld) [Entitic vol] 10.7 fL 6.2-12.0 [facility] Work Phone: Determination of erythrocyte mean corpuscular volume (MCV)on 10-13-2021 MCV (RBC) [Entitic vol] 86.2 fL 81-99 [facility] Work Phone: Hematocrit Auto (Bld) [Volum e fraction]on 10-13-2021 Hematocrit (Bld) [Volume fraction] 36.3 % 37-47 [facility] Work Phone: Laboratory - Chemistry and C hemistry - challengeon 10-13-2021 ALP [Catalytic activity/Vol] 169 U/L 45-117 [facility] Work Phone: ALT [Catalytic activity/Vol] 31 U/L 13-56 [facility] Work Phone: CO2 [Moles/Vol] 25.0 mmol/L 21.0-32.0 [facility] Work Phone: Globulin (S) [Mass/Vol] 4.5 g/dL 2.2-4.2 [facility] Work Phone: Urea nitrogen/Creatinine [Mass ratio] 14.3 mg/mg 10-20 [facility] Work Phone: Laboratory - Hematology and Cell countson 10-13-2021 Erythrocyte distribution width (RBC) [Entitic vol] 45.6 fL 35.1-43.9 [facility] Work Phone: Erythrocyte distribution width (RBC) [Ratio] 14.4 % 11.6-14.6 [facility] Work Phone: Immature granulocytes/100 WBC (Bld) 0.300 % 0.0-0.9 [facility] Work Phone: Comment on above: IG% - Immature Granu locytes (promyelocytes, myelocytes and metamyelocytes) > 1% indicates that a LEFT SHIFT is Present. MCH (RBC) [Entitic mass] 28.7 pg 27.0-32.0 [facility] Work Phone: Nucleated RBC/100 WBC (Bld) [Ratio] 0 % 0-5 [facility] Work Phone: MCHC Auto (RBC) [Mass/Vol]on 10-13-2021 MCHC (RBC) [Mass/Vol] 33.3 g/dL 32-36 [facility] Work Phone: No Panel Informationon 10-13 Estimated GFR (MDRD) Amer 79 mL/min >60 [facility] Work Phone: Comment on above: GFR Calc Estimated GFR (MDRD) Non-Af Amer 66 mL/min >60 [facility] Work Phone: Comment on above: Non- GFR Calc Vitamin D 25-Hydroxy 67.4 ng/mL [facility] Work Phone: Comment on above: Vitamin D 25(OH) Sta tus Range Deficiency <20 ng/mL (50nmol/L) Insufficiency 20 - 30 ng/mL (50 - 75 nmol/L) Sufficiency 30 - 100 ng/mL (75 - 250 nmol/L) Toxicity >100 ng/mL (>250 nmol/L) Platelets bldon 10-13-2021 Platelets (Bld) [#/Vol] 158 10*3/uL 150-450 [facility] Work Phone: Serum or plasma albumin kim urement (mass/volume)on 10-13-2021 Albumin [Mass/Vol] 2.9 g/dL 3.2-5.0 [facility] Work Phone: Serum or plasma albumin/glob ulin mass ratioon 10-13-2021 Albumin/Globulin [Mass ratio] 0.6 {ratio} 0.9-2.4 [facility] Work Phone: Serum or plasma calcium kim urement (mass/volume)on 10-13-2021 Calcium [Mass/Vol] 8.8 mg/dL 8.5-10.1 [facility] Work Phone: Serum or plasma creatinine m easurement (mass/volume)on 10-13-2021 Creatinine [Mass/Vol] 0.91 mg/dL 0.55-1.02 [facility] [facility] Work Phone: Comment on above: The validity of the calculated GFR & GFRAA in patients over 70 years has not been determined. Clinical correlation is essential. Serum or plasma urea nitroge n measurement (mass/volume)on 10-13-2021 Urea nitrogen [Mass/Vol] 13 mg/dL 7-18 [facility] Work Phone: Thin prep Papanicolaou smear with manual screeningon 10-13-2021 Thin prep Papanicolaou smear with manual screening 28 U/L 15-37 [facility] Work Phone: Thin prep Papanicolaou smear with manual screening 7 5-15 [facility] Work Phone: CNOVSPon 10-02-2021 CNOVS Visit (SP) Office (AGGYNONPOB) ----- VIDA NINA ([id number]) 1950 F Date Time Provider Department 10/02/21 1:00 PM JENNIFER CUEVAS During your visit today, we recorded the following information about you: Temperature Pulse Respiration Blood pressure 97.4 degrees 103/minute 20/minute 152/85 Weight Height 136.5 kg 1.651 m Moriah Aldridge RN 10/02/2021 12:52 PM Signed Patient arrived [place] [address] in [facility] for post op visit. Patient admits to pain in abd and lower back resolved since surgery. Pt denies any new concerns, today. Pt here with sepideh [place]. Enc and support provided. JESUS Lynch MD 12/01/2021 8:04 AM Signed Gynecologic Oncology [facility] Follow up visit Date of service: 10/02/2021 PROBLEM/CC: Vida Nina presents for a post-op visit. SURGICAL PATHOLOGY [[id number]] Collected: 09/07/21 1104 Order Status: Completed Specimen: Tissue from UTERUS, CERVIX, BILATERAL FALLOPIAN TUBES AND BILATERAL OVARIES Updated: 09/11/21 1319 Case Report -- Surgical Pathology Report ? Case: [id number] ? Authorizing Provider: ?Jennifer Cuevas MD ? [...] been determined by the performing laboratory within [facility]?s [facility] [place] ([facility], [facility], [facility] or [facility]) in a manner consistent with CLIA [...] ?Not iden (more content not included)... Normal [facility] Glucose Glucometer (BldC) [M ass/Vol]on 09-22-2021 Glucose [Mass/Vol] 145 mg/dL 74-106 [facility] Work Phone: Comment on above: MANAGEMENT OF PATIEN T CARE PER NURSING PROTOCOL Darren 09-21-2021 SHORTY Telephone (ÁNGEL Sprague) ----- VIDA NINA ([id number]) 1950 F Date Time Provider Department 09/21/21 JENNIFER CUEVAS During your visit today, we recorded the following information about you: Jeffrey Ferris 09/21/2021 12:15 PM Signed Spoke to Nurse Bernadine from [facility] stated that the patient is in the hospital and she will call when the patient comes out. So 09/22/21 appt in this office with Dr. Cuevas has been cancelled. Jeffrey Minor 09/21/21 Allergies As of Date: 09/21/2021 Noted [...] ERYTHEMATOSUS [M32.9] 07/15/2005 MYALGIA AND MYOSITIS NOS [[id number]] 07/15/2005 Elevated transaminase level [R74.01] 09/04/2014 Elevated blood sugar [R73.9] 09/04/2014 Mood disorder (HCC) [F39] 09/04/2014 Hard to intubate [T88.4XXA] 09/07/2021 Encounter for postoperative care [Z48.89] 09/07/2021 Endometrial cancer (HCC) [C54.1] 09/08/2021 Encounter Status:Closed by JEFFREY FERRIS on 09/21/21 [facility] Absolute lymphocyte counton 09-20-2021 Lymphocytes Auto (Unsp spec) [#/Vol] 0.99 10*3/uL 0.83-4.51 [facility] Work Phone: Basophil percentageon 2021 Basophils/100 WBC (Bld) 0.6 % 0-1 [facility] Work Phone: Chloride [Moles/Vol] 109 mmol/L 98-107 [facility] Work Phone: Eosinophils/100 WBC (Bld) 2.6 % 0-5 [facility] Work Phone: Glucose [Mass/Vol] 211 mg/dL 74-106 [facility] Work Phone: Comment on above: Glucose result great er than or equal to 200 mg/dLsuggests DIABETES MELLITUS per A.D.A. criteria. Neutrophils (Bld) [#/Vol] 3.4 10*3/uL 2.0-7.7 [facility] Work Phone: Neutrophils/100 WBC (Bld) 67.6 % 47-70 [facility] Work Phone: Potassium [Moles/Vol] 4.4 mmol/L 3.5-5.1 [facility] Work Phone: Sodium [Moles/Vol] 138 mmol/L 136-145 [facility] Work Phone: WBC (Bld) [#/Vol] 5.0 10*3/uL 4.4-11.0 [facility] Work Phone: Blood erythrocytes count (nu mber/volume)on 09-20-2021 RBC (Bld) [#/Vol] 4.50 10*6/uL 4.2-5.4 [facility] Work Phone: Blood hemoglobin measurement (mass/volume)on 09-20-2021 Hemoglobin (Bld) [Mass/Vol] 12.8 g/dL 12.0-15.0 [facility] Work Phone: Blood lymphocytes/100 leukoc yteson 09-20-2021 Lymphocytes/100 WBC (Bld) 19.7 % 19-41 [facility] Work Phone: Blood monocytes/100 leukocyt eson 09-20-2021 Monocytes/100 WBC (Bld) 9.1 % 0-10 [facility] Work Phone: Blood platelet mean volumeon 09-20-2021 Platelet mean volume (Bld) [Entitic vol] 9.8 fL 6.2-12.0 [facility] Work Phone: Determination of erythrocyte mean corpuscular volume (MCV)on 09-20-2021 MCV (RBC) [Entitic vol] 87.6 fL 81-99 [facility] Work Phone: Hematocrit Auto (Bld) [Volum e fraction]on 09-20-2021 Hematocrit (Bld) [Volume fraction] 39.4 % 37-47 [facility] Work Phone: Laboratory - Chemistry and C hemistry - challengeon 09-20-2021 CO2 [Moles/Vol] 24.0 mmol/L 21.0-32.0 [facility] Work Phone: Natriuretic peptide B (Bld) [Mass/Vol] 43.0 pg/mL 0-100 [facility] Work Phone: Urea nitrogen/Creatinine [Mass ratio] 14.0 mg/mg 10-20 [facility] Work Phone: Laboratory - Hematology and Cell countson 09-20-2021 Erythrocyte distribution width (RBC) [Entitic vol] 47.4 fL 35.1-43.9 [facility] Work Phone: Erythrocyte distribution width (RBC) [Ratio] 14.7 % 11.6-14.6 [facility] Work Phone: Immature granulocytes/100 WBC (Bld) 0.400 % 0.0-0.9 [facility] Work Phone: Comment on above: IG% - Immature Granu locytes (promyelocytes, myelocytes and metamyelocytes) > 1% indicates that a LEFT SHIFT is Present. MCH (RBC) [Entitic mass] 28.4 pg 27.0-32.0 [facility] Work Phone: Nucleated RBC/100 WBC (Bld) [Ratio] 0 % 0-5 [facility] Work Phone: MCHC Auto (RBC) [Mass/Vol]on 09-20-2021 MCHC (RBC) [Mass/Vol] 32.5 g/dL 32-36 [facility] Work Phone: No Panel Informationon 09-20 Troponin I High Sensitivity < 3 pg/mL 3.0-54.0 [facility] Work Phone: Comment on above: Please Note: New Emma t Units and Gender Specific Reference Ranges. For more information see Policy Stat Procedure [place] High Sensitivity Troponin (TNIH) and attachments. D-Dimer Quantitative (PE/DVT) 2.47 FEU/ug/m 0.27-0.49 [facility] Work Phone: Comment on above: D-Dimer ELEVATED (>0 .49): Additional studies and clinicalassessments are indicated to conclude diagnosis of:Deep Vein Thrombosis (DVT) or Pulmonary Embolism (PE)CRITICAL VALUE VERIFIED. CALLED TO VVCPAIBC11/17/22 0853 Taniya Burden.RESULTS READ BACK BY SAME . Estimated Creatinine Clearance Calc 56.34 ml/min [facility] Work Phone: Estimated GFR (MDRD) Amer 85 mL/min >60 [facility] Work Phone: Comment on above: GFR Calc Estimated GFR (MDRD) Non-Af Amer 70 mL/min >60 [facility] Work Phone: Comment on above: Non- GFR Calc Platelets bldon 09-20-2021 Platelets (Bld) [#/Vol] 161 10*3/uL 150-450 [facility] Work Phone: Serum or plasma calcium kim urement (mass/volume)on 09-20-2021 Calcium [Mass/Vol] 9.4 mg/dL 8.5-10.1 [facility] Work Phone: Serum or plasma creatinine m easurement (mass/volume)on 09-20-2021 Creatinine [Mass/Vol] 0.86 mg/dL 0.55-1.02 [facility] Work Phone: Comment on above: The validity of the calculated GFR & GFRAA in patients over 70 years has not been determined. Clinical correlation is essential. Serum or plasma urea nitroge n measurement (mass/volume)on 09-20-2021 Urea nitrogen [Mass/Vol] 12 mg/dL 7-18 [facility] Work Phone: Thin prep Papanicolaou smear with manual screeningon 09-20-2021 Thin prep Papanicolaou smear with manual screening 10-18 [facility] Work Phone: OPERATIVE NOon 09-17-2021 OPERATIVE NO HNO ID: [id number] Author: Jennifer Cuevas MD Service: Gynecology Oncology Author Type: Physician Type: Operative Report Filed: 09/23/2021 10:50 AM Note Text: [facility] - Operative Report VIDA NINA : 1950 AGE: 70. SEX: F PATIENT TYPE: I [facility] LOCATION: [facility] ATTENDING PHYSICIAN: Jennifer Cuevas M.D. CSN NUMBER: [id number] DATE OF SURGERY/PROCEDURE: 09/07/2021 INCISION/PROCEDURE START TIME: 09:14 a.m. INCISION CLOSE/PROCEDURE END TIME: 12:36 p.m. 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 SURGEON: Jennifer Cuevas M.D. CUPOLA PATCHER: patient clerical assistant, Dr. Donal Naidu and Dr. Shanon [...] ligaments, which (more content not included)... Normal [facility] Bilirubin Test strip Ql (U)o n 09-10-2021 Bilirubin Ql (U) Negative Negative [facility] Work Phone: Darren 09-10-2021 MICHELLEN Telephone (TAYLORPO B) ----- VIDA NINA ([id number]) 1950 F Date Time Provider Department 09/10/21 TANIYA BALDERAS During your visit today, we recorded the following information about you: Taniya Balderas APRN.MICHELLE 09/10/2021 8:32 AM Signed Called [facility] left message on nurse line to call [...] to. meds that are susceptible are iv. long term can recheck urine if still + then would need to get ID involved verbal instructions per Dr julieth Balderas, GILA.TELEMETRY NURSE Allergies As of Date: 09/10/2021 Noted Allergy [...] ERYTHEMATOSUS [M32.9] 07/15/2005 MYALGIA AND MYOSITIS NOS [[id number]] 07/15/2005 Elevated transaminase level [R74.01] 09/04/2014 Elevated blood sugar [R73.9] 09/04/2014 Mood disorder (HCC) [F39] 09/04/2014 Hard to intubate [T88.4XXA] 09/07/2021 Encounter for postoperative care [Z48.89] 09/07/2021 Endometrial cancer (HCC) [C54.1] 09/08/2021 Encounter Status:Closed by TANIYA BALDERAS on 09/10/21 Normal [facility] Culture, urineon 09-10-2021 Bacteria identified Cx Nom (U) Negative [facility] Work Phone: Ketones Test strip Ql (U)on 09-10-2021 Ketones Ql (U) Negative Negative [facility] Work Phone: Nitrite Test strip Ql (U)on 09-10-2021 Nitrite Ql (U) Negative Negative [facility] Work Phone: Protein Test strip Ql (U)on 09-10-2021 Protein Ql (U) Negative Negative [facility] Work Phone: Urine blood detectionon 04- RBC Ql (U) 25 /ul Negative [facility] Work Phone: Urine clarityon 09-10-2021 Clarity (U) Clear Clear [facility] Work Phone: Urine color determinationon 09-10-2021 Color (U) Yellow Yellow [facility] Work Phone: Urine glucose detectionon Glucose Ql (U) Normal mg/dl Normal [facility] Work Phone: Urine leukocyte esterase det ection by dipstickon 09-10-2021 Leukocyte esterase Test strip Ql (U) 25 /ul Negative [facility] Work Phone: Urine pHon 09-10-2021 pH (U) 7.0 [pH] 5.0 - 8.0 [facility] Work Phone: Urine specific gravity measu rementon 09-10-2021 Specific gravity (U) [Rel density] 1.005 1.002-1.03 0 [facility] Work Phone: Urobilinogen Auto test strip Ql (U)on 09-10-2021 Urobilinogen Ql (U) Normal mg/dl Normal [facility] Work Phone: ANES POSTPROC EVALon 022 ANES POSTPROC EVAL HNO ID: [id number] Author: Darrion Payne MD Service: Anesthesiology Author Type: Physician Type: Anesthesia Postprocedure Evaluation Filed: 09/09/2021 12:30 PM Note Text: POST ANESTHESIA EVALUATION NOTE : 1950 Procedure Summary Date: 09/07/21 Room / Location: CT OR [address] [place] [address] OR Anesthesia Start: 812 Anesthesia Stop: 1242 [...] September 09, 2021 TIME: 12:30 PM CSN: [id number] [facility] MICHELLENon 09-09-2021 MICHELLEN Telephone (ÁNGEL Sprague) ----- KELLEVIDA Dennis ([id number]) 1950 F Date Time Provider Department 09/09/21 JENNIFER CUEVAS During your visit today, we recorded the following information about you: Summer Turcios RN 09/09/2021 2:15 PM Signed Franklin, practical nursing faculty at [facility] called stated, "one of patient's lap sites opened a little and a scant amount of blood was noted". Franklin stated they reinforced the surgical glue/lap [...] confidential e-mail) Attempted to call Franklin at [facility] to review above message, no answer. Left message on voicemail to return call. JESUS Shah RN 09/09/2021 2:53 PM Signed Franklin from [facility] returned call to this RN. Reviewed [...] ERYTHEMATOSUS [M32.9] 07/15/2005 MYALGIA AND MYOSITIS NOS [[id number]] 07/15/2005 Elevated transaminase level [R74.01] 09/04/2014 Elevated blood sugar [R73.9] 09/04/2014 Mood disorder (HCC) [F39] 09/04/2014 Hard to intubate [T88.4XXA] 09/07/2021 Encounter for postoperative care [Z48.89] 09/07/2021 Endometrial cancer (HCC) [C54.1] 09/08/2021 Encounter Status:Closed by SUMMER TURCIOS on 09/09/21 [facility] CASE MANAGEMon 09-08-2021 CASE MANAGEM HNO ID: [id number] Author: Rosmery Mclaughlin RN Service: ? Author [...] [facility] is aware of DC and strip picker time. RN to call report. TRANSPORTATION ARRANGEMENTS: Transportation Arrangements: ([facility]) ADDITIONAL CONTACT RESOURCES: n/a DC orders completed. Patient is discharging back to [facility] The facility has arranged for [facility] transport to pick her up at 1pm. RN is aware. Met with patient at bedside to notify of DC and transport time. SIGNATURE: Rosmery Mclaughlin RN PATIENT NAME: Vida Nina DATE: September 08, 2021 TIME: 12:28 PM PAGER/CONTACT #: [phone] [facility] HNO ID: [id number] Author: Rosmery Mclaughlin RN Service: ? Author Type: Registered Nurse Type: Care Mgt Initial Assessment Filed: 09/08/2021 10:24 AM Note Text: CARE MANAGEMENT: ASSESSMENT AND DISCHARGE PLAN SERVICE DATE: September 08, 2021 SERVICE TIME: 10:22 AM PRIMARY CARE PHYSICIAN: No primary care provider on file. Phone: None ADMISSION STATUS: Inpatient Needs Prior to Discharge: Discharge Transportation MEDICAL: [facility] MEDICARE Patient/[employer] Stated Goals: To return home to life as it was;To have reduction in pain Health Insurance: [facility];Medicare;Medicaid Health Issues Impacting Discharge Plan: Newly diagnosed [...] None Has the Patient Been in a [facility] Facility in the Past 30 days?: No [...] plan for meeting these needs: return to [place] Patient's perception of need for this admission: surgery Are you interested in bedside delivery of your medications? No Is Patient Psychosocially Complex?: No ASSESSMENT AND PLAN: Medical Needs: Medical Needs: Two or more chronic diseases Psychosocial Needs: Psychosocial Needs: None FREEDOM OF CHOICE EXPLAINED: [place] of Choice Given: No Reason Not Given: Patient refused (patient prefers to return to [facility]) POTENTIAL TRANSITION PLANS Home Chart reviewed and met with patient. She is from [facility]. 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 Plan is to return to [place]. Spoke with Zari at [facility]. 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 Will updated patient and RN. SIGNATURE: Rosmery Mclaughlin RN PATIENT NAME: Vida Nina DATE: September 08, 2021 TIME: 10:22 AM PAGER/CONTACT #: [phone] [facility] 09-08-2021 [facility] HNO ID: [id number] Author: Sam Naidu DO Service: Gynecology Oncology [...] Time Provider Department Center 09/22/2021 2:30 PM [id number]-REDYZOMGJENNIFER CUEVAS PO DISCHARGE MEDICATIONS Current Discharge Medication List START [...] September 08, 2021 TIME: 7:27 AM PAGER: [phone] Normal [facility] ANES PRE-OPon 09-07-2021 ANES PRE-OP HNO ID: [id number] Author: Darrion Payne MD Service: Anesthesiology Author [...] Height as of 09/01/21: 165.1 cm (5' 5"). Weight as of 09/01/21: 128.8 kg (284 [...] and consent discussed: yes. Patient / Responsible Democrat agrees to proceed: yes Patient / Surrogate [...] September 07, 2021 TIME: 8:57 AM CSN: [id number] [facility] BRIEF OP NOTon 09-07-2021 BRIEF OP NOT HNO ID: [id number] Author: Sam Naidu DO Service: Gynecology Oncology Author Type: Resident Type: Brief Op Note Filed: 09/07/2021 1:06 PM Note Text: BRIEF OPERATIVE / PROCEDURE NOTE LOG ID: [id number] SURGERY/PROCEDURE DATE: 09/07/2021 INCISION/PROCEDURE START TIME: 9:14 AM INCISION CLOSE/PROCEDURE END TIME: 12:36 PM SURGEON(S)/PROCEDURALIST( S) AND CUPOLA PATCHER(S): Surgeon(s) and Role: * Jennifer Cuevas MD [...] September 07, 2021 TIME: 1:01 PM Normal [facility] Bacteria Ur Culton 2 Bacteria identified Cx Nom (U) ORGANISM ID: [...] F Trimeth sulfameth R >2 F Abnormal [facility] Comment on above: Performed By: #### 6 30-4 ####[facility]ATORYCLIA [id number] [place] [address] [place] Basic metabolic 2000 panelon 09-07-2021 Anion gap [Moles/Vol] 13 mmol/L Normal 9-18 [facility] Comment on above: Order Comment: Bobbi alford Type: BLOOD SPECIMEN [facility]ing Facility: [facility] Address: [address] [address] Performed By: #### 2 4321-2 #### [facility] CLIA [id number] [address] STATES OF [facility] Calcium [Mass/Vol] 9.2 mg/dL Normal 8.5-10.2 [facility] Comment on above: Order Comment: Bobbi alford Type: BLOOD SPECIMEN Ordering Facility: [facility] Address: [address] [address] Performed By: #### 2 4321-2 #### [facility] CLIA [id number] [address] Chloride [Moles/Vol] 97 mmol/L Normal 97-105 [facility] Comment on above: Order Comment: Speci men Type: BLOOD SPECIMEN Ordering Facility: [facility] Address: [address] [place] [address] Performed By: #### 2 4321-2 #### [facility] CLIA [id number] [address] OF [place] CO2 [Moles/Vol] 22 mmol/L Normal 22-30 [facility] Comment on above: Order Comment: Speci men Type: BLOOD SPECIMEN Ordering Facility: [facility] Address: [address] [place] [address] Performed By: #### 2 4321-2 #### [facility] CLIA [id number] [address] Creatinine [Mass/Vol] 0.70 mg/dL Normal 0.58-0.96 [facility] Comment on above: Order Comment: Speci men Type: BLOOD SPECIMEN [facility]ing Facility: [facility] Address: [address] [place] [address] Performed By: #### 2 4321-2 #### [facility] CLIA [id number] [address] ESTIMATED GLOMERULAR FILTRATION RATE 94 mL/min/1.73m??? Normal >=60 [facility] Comment on above: Order Comment: Speci men Type: BLOOD SPECIMEN [facility] Facility: [facility] Address: [address] [place] [address] Result Comment: Laura mated Glomerular Filtration Rate [...] GFR. Performed By: #### 2 4321-2 #### [facility] CLIA [id number] 1 [place] [address] [place] Glucose [Mass/Vol] 303 mg/dL High 74-99 [facility] Comment on above: Order Comment: Bobbi alford Type: BLOOD SPECIMEN [facility] Facility: [facility] Address: [address] [place] [address] Result Comment: The [place] Diabetes [employer] (ADA) provides guidance for cutoff [...] Standards of Medical Care in Diabetes 2016, [place] [employer]. Diabetes Care. 2016.39(Suppl 1). Performed By: #### 2 4321-2 #### [facility] CLIA [id number] 1 [place] [address] [place] Potassium [Moles/Vol] 4.9 mmol/L Normal 3.7-5.1 [facility] Comment on above: Order Comment: Bobbi alford Type: BLOOD SPECIMEN [facility] Facility: [facility] Address: [address] [place] [address] Performed By: #### 2 4321-2 #### [facility] CLIA [id number] [address] [place] [address] [place] Sodium [Moles/Vol] 132 mmol/L Low 136-144 [facility] Comment on above: Order Comment: Bobbi alford Type: BLOOD SPECIMEN [facility] Address: [address] [place] [address] Performed By: #### 2 4321-2 #### [facility] CLIA [id number] [address] Urea nitrogen [Mass/Vol] 13 mg/dL Normal 7-21 [facility] Comment on above: Order Comment: Speci men Type: BLOOD SPECIMEN [facility]: [facility] Address: [address] [place] [address] Performed By: #### 2 4321-2 #### [facility] CLIA [id number] [address] OF [facility] CBC panel Auto (Bld)on 09-07 Erythrocyte distribution width (RBC) [Ratio] 14.2 % Normal 11.5-15.0 [facility] Comment on above: Order Comment: Speci men Type: BLOOD SPECIMEN [facility] Facility: [facility] Address: [address] [place] [address] Performed By: #### 5 8410-2 #### [facility] CLIA [id number] [address] Hematocrit (Bld) [Volume fraction] 44.0 % Normal 36.0-46.0 [facility] Comment on above: Order Comment: Speci men Type: BLOOD SPECIMEN [facility] Facility: [facility] Address: [address] [place] [address] Performed By: #### 5 8410-2 #### [facility] CLIA [id number] [address] Hemoglobin (Bld) [Mass/Vol] 14.2 g/dL Normal 11.5-15.5 [facility] Comment on above: Order Comment: Speci men Type: BLOOD SPECIMEN [facility]ing Facility: [facility] Address: [address] [place] [address] Performed By: #### 5 8410-2 #### [facility] CLIA [id number] [address] MCH (RBC) [Entitic mass] 28.9 pg Normal 26.0-34.0 [facility] Comment on above: Order Comment: Speci men Type: BLOOD SPECIMEN [facility]ing Facility: [facility] Address: [address] [address] Performed By: #### 5 8410-2 #### [facility] CLIA [id number] [address] MCHC (RBC) [Mass/Vol] 32.3 g/dL Normal 30.5-36.0 [facility] Comment on above: Order Comment: Speci men Type: BLOOD SPECIMEN [facility] Facility: [facility] Address: [address] [place] [address] Performed By: #### 5 8410-2 #### [facility] CLIA [id number] [address] MCV (RBC) [Entitic vol] 89.6 fL Normal 80.0-100.0 [facility] Comment on above: Order Comment: Speci men Type: BLOOD SPECIMEN [facility] Facility: [facility] Address: [address] [place] [address] Performed By: #### 5 8410-2 #### [facility] CLIA [id number] [address] Nucleated RBC (Bld) [#/Vol] 10*3/uL Normal <0.01 [facility] Comment on above: Order Comment: Speci men Type: BLOOD SPECIMEN [facility]: [facility] Address: [address] [place] [address] Performed By: #### 5 8410-2 #### [facility] CLIA [id number] [address] Platelet mean volume (Bld) [Entitic vol] 10.8 fL Normal 9.0-12.7 [facility] Comment on above: Order Comment: Speci men Type: BLOOD SPECIMEN [facility] Facility: [facility] Address: [address] [place] [address] Performed By: #### 5 8410-2 #### [facility] CLIA [id number] [address] [place] Platelets (Bld) [#/Vol] 153 10*3/uL Normal 150-400 [facility] Comment on above: Order Comment: Speci men Type: BLOOD SPECIMEN [facility] Facility: [facility] Address: [address] [place] [address] Performed By: #### 5 8410-2 #### [facility] [facility] CLIA [id number] [address] RBC (Bld) [#/Vol] 4.91 10*6/uL Normal 3.90-5.20 [facility] Comment on above: Order Comment: Speci men Type: BLOOD SPECIMEN [facility] Address: [address] [place] [address] Performed By: #### 5 8410-2 #### [facility] CLIA [id number] [address] WBC (Bld) [#/Vol] 8.23 10*3/uL Normal 3.70-11.00 [facility] Comment on above: Order Comment: Speci men Type: BLOOD SPECIMEN [facility] Facility[facility] Address: [address] [place] [address] Performed By: #### 5 8410-2 #### [facility] CLIA [id number] [address] CONSULT PROGon 09-07-2021 CONSULT PROG HNO ID: [id number] Author: Niki Crabtree RPh Service: Pharmacy Author [...] Niki Crabtree RPh DATE/TIME: 09/07/2021 4:32 PM [facility] NURSING PROGon 09-07-2021 NURSING PROG HNO ID: [id number] Author: Lydia Oilver RN Service: Nursing Author Type: Registered Nurse Type: Nursing Progress Note Filed: 09/07/2021 3:19 PM Note Text: Spoke with Bernadine at [facility] to let her know patient was spending the night, as she said there is no nursing staff after 2300 Normal [facility] NURSING PROG HNO ID: [id number] Author: Lydia Oliver RN Service: Nursing Author [...] continue home meds on the floor. Normal [facility] SARS-CoV-2 RNA Resp Ql SALLY+p robeon 09-07-2021 SARS-CoV-2 (COVID-19) RNA SALLY+probe Ql (Resp) COVID 19 RESULT: SARS-CoV-2 (Agent of COVID-19) Not Detected by RT-PCR or equivalent method. This test has been authorized by FDA under an Emergency Use Authorization (EUA). [facility] Comment on above: Performed By: #### 9 4500-6 ####[facility]IA [id number] [place] [address] [place] SURGICAL PATHOLOGYon 022 CASE REPORT [facility] Comment on above: Order Comment: Speci men Type: TISSUE SPECIMEN [facility] Address: [address] [place] [phone] Result Comment: Surg ica Pathology Report Case: [id number] Authorizing Provider: Jennifer Cuevas MD Collected: 09/07/2021 11:04 AM Ordering Location: [place] [facility] Received: 09/07/2021 11:12 AM Pathologist: Oseas May MD Intraop: Derick Alvarez MD Specimen: UTERUS, CERVIX, BILATERAL FALLOPIAN TUBES AND BILATERAL OVARIES Performed By: #### S #### [facility] CLIA [id number] [address] DIAGNOSIS COMMENT Normal [facility] Comment on above: Order Comment: Speci men Type: TISSUE SPECIMEN [facility] Address: [address] [place] [address] Result Comment: Immu nohistochemical staining performed on [...] been determined by the performing laboratory within [facility]???[facility] Pathology and Laboratory Medicine [place] ([facility], [facility], [facility] or [facility]) in a manner consistent with CLIA requirements. One or more of these tests have not been cleared or approved by the FDA. [facility] is regulated under CLIA as qualified to perform high-complexity testing. These tests are used for clinical purposes. They should not be regarded as investigational or for research. Positive and negative controls stain appropriately. Performed By: #### S #### [facility] CLIA [id number] [address] FINAL DIAGNOSIS Normal [facility] Comment on above: Order Comment: Speci men Type: TISSUE SPECIMEN [facility] Address: [address] [place] [phone] Result Comment: A. U terus, cervix, bilateral [...] -Unremarkable ovaries. Performed By: #### S #### [facility] CLIA [id number] [address] [place] [address] FINAL PERFORMING LAB Normal [facility] Comment on above: Order Comment: Speci men Type: TISSUE SPECIMEN [facility] Address: [address] [place] [address] Result Comment: Diag nostic interpretation performed at [facility], [address] [place] [address] CLIA# [id number] Poultry Vaccinator: Alok Jonas M.D. Performed By: #### S #### [facility] CLIA [id number] [address] [place] [address] GROSS DESCRIPTION Normal [facility] Comment on above: Order Comment: Speci men Type: TISSUE SPECIMEN [facility] Address: [address] [address] Result Comment: A. U TERUS, CERVIX, BILATERAL FALLOPIAN TUBES AND BILATERAL OVARIES. Received in formalin labeled "uterus cervix bilateral fallopian tubes and bilateral ovaries" is a uterus with attached cervix and [...] fibrous ovarian parenchyma with no lesions identified. [employer] sections are submitted as follows: A1-anterior cervix [...] A 17-right ovary Gross examination performed at [facility], [address] [place] [address] CLIA#[id number] OLS September 08, 2021 10:33 AM Performed By: #### S #### [facility] CLIA [id number] [address] [place] INTRAOPERATIVE DIAGNOSIS Normal [facility] Comment on above: Order Comment: Speci men Type: TISSUE SPECIMEN [facility] Address: [address] [place] [address] Result Comment: A. U TERUS, CERVIX, BILATERAL FALLOPIAN TUBES AND BILATERAL OVARIES. Gross diagnosis: Uterus, cervix, bilateral fallopian tubes, bilateral ovaries- Endometrial tumor grossly invading greater than 50% into the uterine wall (AC) Performed By: #### S #### [facility] CLIA [id number] [address] [place] SYNOPTIC REPORT ENDOMETRIUM Normal [facility] Comment on above: Order Comment: Speci men Type: TISSUE SPECIMEN [facility] Address: [address] [place] [address] Result Comment: ENDO METRIUM, HYSTERECTOMY - All [...] Stage: IB Performed By: #### S #### [facility] CLIA [id number] [address] OF [facility] CBC panel Auto (Bld)on 09-01 Erythrocyte distribution width (RBC) [Ratio] 14.5 % Normal 11.5-15.0 [facility] Comment on above: Order Comment: Speci men Type: BLOOD SPECIMEN [facility] Address: [address] [address] Performed By: #### 5 8410-2 #### [facility] CLIA [id number] [address] STATES OF [facility] Hematocrit (Bld) [Volume fraction] 41.0 % Normal 36.0-46.0 [facility] Comment on above: Order Comment: Speci men Type: BLOOD SPECIMEN [facility] Address: [address] [address] Performed By: #### 5 8410-2 #### [facility] CLIA [id number] [address] [place] Hemoglobin (Bld) [Mass/Vol] 13.3 g/dL Normal 11.5-15.5 [facility] Comment on above: Order Comment: Speci men Type: BLOOD SPECIMEN [facility] Address: [address] [address] Performed By: #### 5 8410-2 #### [facility] CLIA [id number] [address] MCH (RBC) [Entitic mass] 28.8 pg Normal 26.0-34.0 [facility] Comment on above: Order Comment: Speci men Type: BLOOD SPECIMEN [facility] Address: [address] [place] [address] Performed By: #### 5 8410-2 #### [facility] CLIA [id number] [address] MCHC (RBC) [Mass/Vol] 32.4 g/dL Normal 30.5-36.0 [facility] Comment on above: Order Comment: Speci men Type: BLOOD SPECIMEN [facility] Address: [address] [place] [address] Performed By: #### 5 8410-2 #### [facility] CLIA [id number] [address] MCV (RBC) [Entitic vol] 88.7 fL Normal 80.0-100.0 [facility] Comment on above: Order Comment: Speci men Type: BLOOD SPECIMEN [facility] Address: [address] [place] [address] Performed By: #### 5 8410-2 #### [facility] CLIA [id number] [address] Nucleated RBC (Bld) [#/Vol] 10*3/uL Normal <0.01 [facility] Comment on above: Order Comment: Speci men Type: BLOOD SPECIMEN [facility] Address: [address] [place] [address] Performed By: #### 5 8410-2 #### [facility] CLIA [id number] [address] Platelet mean volume (Bld) [Entitic vol] 10.5 fL Normal 9.0-12.7 [facility] Comment on above: Order Comment: Speci men Type: BLOOD SPECIMEN [facility] Address: [address] [address] Performed By: #### 5 8410-2 #### [facility] CLIA [id number] [address] Platelets (Bld) [#/Vol] 167 10*3/uL Normal 150-400 [facility] Comment on above: Order Comment: Speci men Type: BLOOD SPECIMEN [facility] Address: [address] [place] [address] Performed By: #### 5 8410-2 #### [facility] CLIA [id number] [address] RBC (Bld) [#/Vol] 4.62 10*6/uL Normal 3.90-5.20 [facility] Comment on above: Order Comment: Speci men Type: BLOOD SPECIMEN [facility] Address: [address] [place] [address] Performed By: #### 5 8410-2 #### [facility] CLIA [id number] [address] WBC (Bld) [#/Vol] 6.29 10*3/uL Normal 3.70-11.00 [facility] Comment on above: Order Comment: Speci men Type: BLOOD SPECIMEN [facility] Address: [address] [place] [address] Performed By: #### 5 8410-2 #### [facility] CLIA [id number] [address] CONFIRM BLOOD TYPEon 022 ABO O Normal [facility] Comment on above: Order Comment: Speci men Type: BLOOD SPECIMEN [facility] Address: [address] [place] [address] Performed By: #### C ONABO #### [facility] CLIA [id number] [address] [place] [address] Rh Nom (Bld) Positive Normal [facility] Comment on above: Order Comment: Speci men Type: BLOOD SPECIMEN [facility] Address: [address] [place] [address] Performed By: #### C ONABO #### [facility] CLIA [id number] [address] HISTORY PHYSICALon HISTORY PHYSICAL HNO ID: [id number] Author: Naila Barrientos APRN.MICHELLE Service: ? Author [...] with Dr. Cuevas. Surgery will be at [facility] OR Scheduled as an TBA Have you been in contact with someone with known coronavirus/Covid 19? no Have you had surgery or pre testing at [facility] in the past 3 years? no [...] Negative for: AICD/PPM, chest pain, CHF, recent AL and open heart surgery. GI: Positive for: abdominal pain Negative for: nausea and vomiting. : No history of dysuria, frequency or incontinence, stones or chronic kidney disease. No difficulty urinating, nocturia > 1 time per night or hematuria. 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 [...] Yes de (more content not included)... Normal [facility] TYPE AND SCREEN,30 DAYon ABO O Normal [facility] Comment on above: Order Comment: Speci men Type: BLOOD SPECIMEN [facility] Address: [address] [place] [address] Performed By: #### T SCR30 #### [facility] CLIA [id number] [address] HISTORICAL AB SCR STATUS Negative [facility] Comment on above: Order Comment: Speci men Type: BLOOD SPECIMEN [facility] Address: [address] [place] [address] Performed By: #### T SCR30 #### [facility] CLIA [id number] [address] [place] [address] Rh Nom (Bld) Positive Normal [facility] Comment on above: Order Comment: Speci men Type: BLOOD SPECIMEN [facility] Address: [address] [place] [address] Performed By: #### T SCR30 #### [facility] CLIA [id number] [address] CNOVSPon 08-21-2021 CNOVSP Visit (SP) Office (ROGELIO) ----- VIDA NINA ([id number]) 1950 F Date Time Provider Department 08/21/21 1:30 PM JENNIFER CUEVAS During your visit today, we recorded the following information about you: Temperature Pulse Blood pressure Weight 97.8 degrees 113/minute 144/72 130 kg Height 1.651 m Jennifer Cuevas MD 08/26/2021 1:21 PM Signed Gynecologic Oncology [facility] Consult Date of service: 08/21/2021 PCP: [...] many years since she has seen a pen tender, maybe > 10 years. 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 Spiritual Minister History ? 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 Age at Menarche: ? Age at First : ? Age at Menopause: ? Spiritual Minister History Comments: ? Sexual Activity: Not Asked; [...] as needed. (more content not included)... Normal [facility] Darren 08-07-2021 SHORTY Telephone (ÁNGEL Sprague) ----- VIDA NINA ([id number]) 1950 F Date Time Provider Department 08/07/21 JENNIFER CUEVAS During your visit today, we recorded the following information about you: Jeffrey Ferris 08/07/2021 1:26 PM Signed Called gilberto the nurse at [facility] where the patient is living [...] ERYTHEMATOSUS [M32.9] 07/15/2005 MYALGIA AND MYOSITIS NOS [CYQ4720] 07/15/2005 Elevated transaminase level [R74.01] 09/04/2014 Elevated blood sugar [R73.9] 09/04/2014 Mood disorder (HCC) [F39] 09/04/2014 Encounter Status:Closed by JEFFREY FERRIS on 08/07/21 Normal [facility] MICHELLENon 08-05-2021 CNPN Telephone (OBGYWM) ----- VIDA NINA ([id number]) 1950 F Date Time Provider Department 08/05/21 KRUNAL ERAZO OBGY During your visit today, we recorded the following information about you: Krunal Erazo MD 08/05/2021 8:30 AM Signed Called listed numbers under home phone, and the numbers are not working. Called number listed for patient's skilled nursing case manager regarding results, but it was stated that patient does not have a skilled nursing case manager currently. I was given the number [phone] to call, which is [facility] where patient resides. Called this number and left a VM asking them to call back regarding patient results. I had offered the patient a follow up visit this week to review results, but she did prefer a phone call. Pathology shows endometrioid adenocarcinoma. I will place a referral to assistant director of admissions oncology. Recommend that she see Dr. Jennifer Cuevas in [place] as that would be the closest for her. Kurnal Erazo MD 08/05/2021 10:06 AM Signed Discussed results with a nurse Gilberto over the phone and plan of care. She states patient saw an oncologist as well at [facility] and is scheduled for a CTAP. She will have the patient call our office back today for me to discuss results with her as well. Krunal Erazo MD 08/05/2021 10:19 AM Signed Discussed results with the patient and she understands the biopsy shows an endometrial cancer, and that I placed a referral to assistant director of admissions oncology for a consultation. Please assist in scheduling this patient. Andra Jesus RN 08/05/2021 11:33 AM Signed Scheduled patient with Dr. Cuevas this Tuesday, 08/07 at 1:00 PM. Spoke with the nurse, Gilberto. Patient's CT scan is scheduled for Tuesday. Phone number given to change appointment since transportation needs arranged. Notified Gilberto that he is in [place] on Tuesdays and every other Tuesday. 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] Order(s):CONSULT TO GYNECOLOGIC/ONCOLOGY [[id number]] Order #: [id number]: 1 FUTURE Prescriptions as of 08/05/2021 - [...] ERYTHEMATOSUS [M32.9] 07/15/2005 MYALGIA AND MYOSITIS NOS [[id number]] 07/15/2005 Elevated transaminase level [R74.01] 09/04/2014 Elevated blood sugar [R73.9] 09/04/2014 Mood disorder (HCC) [F39] 09/04/2014 Encounter Status:Closed by PAMELA MATUTE RN on 08/05/21 [facility] No Panel Informationon 07-30 CA 125 Antigen 85.5 U/mL 0.0-38.1 [facility] Work Phone: Comment on above: [employer] El ectrochemiluminescence Immunoassay(ECLIA)Values obtained with different assay methods or kits cannotbe used interchangeably. Results cannot be interpreted asabsolute evidence of the presence or absence of malignantdisease.Performed at: [address] [id number] Director: Suhas Deal PhD, Phone: [phone] CNOVon 07-29-2021 CNOV Office Visit (OBGYWM ) ----- VIDA NINA ([id number]) 1950 F Date Time Provider Department 07/29/21 10:30 AM KRUNAL ERAZO During your visit today, we recorded the following information about you: Blood pressure Weight 120/80 132.6 kg Krunal Erazo MD 07/30/2021 10:15 AM Signed Vida Crain Kelle is a 70 year old female who [...] many years since she has seen a pen tender, maybe > 10 years. 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 Spiritual Minister History LMP: Postmenopausal Age at Menarche: Age at First : Age at Menopause: Spiritual Minister History Comments: Sexual Activity: Not Asked; No [...] non-tender and (more content not included)... Normal [facility] SURGICAL PATHOLOGYon SURGICAL PATHOLOGY ADDENDUM PRESENT Specimen originated from [facility] Specimen #: [id number] Submitting Physician: KRUNAL ERAZO, DO FINAL DIAGNOSIS 1. Cervix at 3 [...] in-situ hybridization tests have been determined by [facility] Pathology and Laboratory Medicine [place] ([facility]) in a manner consistent with CLIA requirements. One or more of these tests have not been cleared or approved by the FDA. [facility] is regulated under CLIA as qualified to [...] completed on all uterine/endometrial carcinomas at the [facility]. IHC stains for MMR proteins [...] more information or questions, please call the [facility] at . Andra Webb (more content not included)... Normal [facility] CNPElva 07-27-2021 CNPN Telephone (OBGYWM) ----- VIDA NINA ([id number]) 1950 F CPA Date Time Provider Department 07/27/21 KRUNAL ERAZO OBTRUDY During your visit today, we recorded the following information about you: Andra Jesus RN 07/27/2021 8:14 AM Signed KJ states that patient was seen at [facility] ER yesterday for vaginal bleeding and possible pelvic mass. Called [facility] ER and requested records and imaging report be faxed to our office. KJ would like SW to review and possibly offer her an appointment to be seen. Please give report to SW once it's received from hospital. Andra Jesus RN 07/27/2021 8:23 AM Signed Report received. To SW to review. Krunal Erazo MD 07/27/2021 9:03 AM Signed ER records reviewed. Hgb 13.8 and stable in ER. Pelvic ultrasound shows cervical mass and endometrial thickening. Of note, patient is minimally ambulatory and coming from [facility]. Since she is a new patient who is minimally ambulatory, and likely needs an EMB and cervical biopsies, would prefer to have 60 min appointment to get everything completed in one day as well as group home counselor her. Can offer her the 2.20 [...] ERYTHEMATOSUS [M32.9] 07/15/2005 MYALGIA AND MYOSITIS NOS [[id number]] 07/15/2005 Elevated transaminase level [R74.01] 09/04/2014 Elevated blood sugar [R73.9] 09/04/2014 Mood disorder (HCC) [F39] 09/04/2014 Encounter Status:Closed by ELISABETH GREEN LPN on 07/27/21 Normal [facility] Absolute lymphocyte counton 07-26-2021 Lymphocytes Auto (Unsp spec) [#/Vol] 1.24 10*3/uL 0.83-4.51 [facility] Work Phone: Basophil percentageon 2021 Basophils/100 WBC (Bld) 0.6 % 0-1 [facility] Work Phone: Chloride [Moles/Vol] 105 mmol/L 98-107 [facility] Work Phone: Eosinophils/100 WBC (Bld) 3.9 % 0-5 [facility] Work Phone: Glucose [Mass/Vol] 185 mg/dL 74-106 [facility] Work Phone: Comment on above: Fasting Glucose resu lt greater than or equal to 126 mg/dL suggests DIABETES MELLITUS per A.D.A. criteria. Neutrophils (Bld) [#/Vol] 3.2 10*3/uL 2.0-7.7 [facility] Work Phone: Neutrophils/100 WBC (Bld) 62.1 % 47-70 [facility] Work Phone: Potassium [Moles/Vol] 4.4 mmol/L 3.5-5.1 [facility] Work Phone: Sodium [Moles/Vol] 135 mmol/L 136-145 [facility] Work Phone: WBC (Bld) [#/Vol] 5.1 10*3/uL 4.4-11.0 [facility] Work Phone: Blood erythrocytes count (nu mber/volume)on 07-26-2021 RBC (Bld) [#/Vol] 4.66 10*6/uL 4.2-5.4 [facility] Work Phone: Blood hemoglobin measurement (mass/volume)on 07-26-2021 Hemoglobin (Bld) [Mass/Vol] 13.8 g/dL 12.0-15.0 [facility] Work Phone: Blood lymphocytes/100 leukoc yteson 07-26-2021 Lymphocytes/100 WBC (Bld) 24.5 % 19-41 [facility] Work Phone: Blood monocytes/100 leukocyt eson 07-26-2021 Monocytes/100 WBC (Bld) 8.5 % 0-10 [facility] Work Phone: Blood platelet mean volumeon 07-26-2021 Platelet mean volume (Bld) [Entitic vol] 10.1 fL 6.2-12.0 [facility] Work Phone: Determination of erythrocyte mean corpuscular volume (MCV)on 07-26-2021 MCV (RBC) [Entitic vol] 88.2 fL 81-99 [facility] Work Phone: Hematocrit Auto (Bld) [Volum e fraction]on 07-26-2021 Hematocrit (Bld) [Volume fraction] 41.1 % 37-47 [facility] Work Phone: Laboratory - Chemistry and C hemistry - challengeon 07-26-2021 CO2 [Moles/Vol] 24.0 mmol/L 21.0-32.0 [facility] Work Phone: Urea nitrogen/Creatinine [Mass ratio] 17.3 mg/mg 10- [facility] Work Phone: Laboratory - Hematology and Cell countson 07-26-2021 Erythrocyte distribution width (RBC) [Entitic vol] 46.8 fL 35.1-43.9 [facility] Work Phone: Erythrocyte distribution width (RBC) [Ratio] 14.6 % 11.6-14.6 [facility] Work Phone: Immature granulocytes/100 WBC (Bld) 0.400 % 0.0-0.9 [facility] Work Phone: Comment on above: IG% - Immature Granu locytes (promyelocytes, myelocytes and metamyelocytes) > 1% indicates that a LEFT SHIFT is Present. MCH (RBC) [Entitic mass] 29.6 pg 27.0-32.0 [facility] Work Phone: Nucleated RBC/100 WBC (Bld) [Ratio] 0 % 0-5 [facility] Work Phone: MCHC Auto (RBC) [Mass/Vol]on 07-26-2021 MCHC (RBC) [Mass/Vol] 33.6 g/dL 32-36 [facility] Work Phone: No Panel Informationon 07-26 Estimated Creatinine Clearance Calc 55.69 ml/min [facility] Work Phone: Estimated GFR (MDRD) Amer 84 mL/min >60 [facility] Work Phone: Comment on above: GFR Calc Estimated GFR (MDRD) Non-Af Amer 69 mL/min >60 [facility] Work Phone: Comment on above: Non- GFR Calc Platelets bldon 07-26-2021 Platelets (Bld) [#/Vol] 151 10*3/uL 150-450 [facility] Work Phone: Serum or plasma calcium kim urement (mass/volume)on 07-26-2021 Calcium [Mass/Vol] 9.2 mg/dL 8.5-10.1 [facility] Work Phone: Serum or plasma creatinine m easurement (mass/volume)on 07-26-2021 Creatinine [Mass/Vol] 0.87 mg/dL 0.55-1.02 [facility] Work Phone: Comment on above: The validity of the calculated GFR & GFRAA in patients over 70 years has not been determined. Clinical correlation is essential. Serum or plasma urea nitroge n measurement (mass/volume)on 07-26-2021 Urea nitrogen [Mass/Vol] 15 mg/dL 7-18 [facility] Work Phone: Thin prep Papanicolaou smear with manual screeningon 07-26-2021 Thin prep Papanicolaou smear with manual screening 6 5-15 [facility] Work Phone: Absolute lymphocyte counton 07-14-2021 Lymphocytes Auto (Unsp spec) [#/Vol] 1.32 10*3/uL 0.83-4.51 [facility] Work Phone: Basophil percentageon 2021 Basophils/100 WBC (Bld) 0.6 % 0-1 [facility] Work Phone: Bilirubin [Mass/Vol] 0.40 mg/dL 0.20-1.00 [facility] Work Phone: Comment on above: For patients on eltr ombopag therapy, use of Dimension [place] TBIL is not recommended. Chloride [Moles/Vol] 104 mmol/L 98-107 [facility] Work Phone: Eosinophils/100 WBC (Bld) 3.1 % 0-5 [facility] Work Phone: Glucose [Mass/Vol] 201 mg/dL 74-106 [facility] Work Phone: Comment on above: Glucose result great er than or equal to 200 mg/dLsuggests DIABETES MELLITUS per A.D.A. criteria. Neutrophils (Bld) [#/Vol] 3.0 10*3/uL 2.0-7.7 [facility] Work Phone: Neutrophils/100 WBC (Bld) 59.5 % 47-70 [facility] Work Phone: Potassium [Moles/Vol] 4.2 mmol/L 3.5-5.1 [facility]: Protein [Mass/Vol] 7.6 g/dL 6.4-8.2 [facility]: Sodium [Moles/Vol] 136 mmol/L 136-145 [facility]: WBC (Bld) [#/Vol] 5.1 10*3/uL 4.4-11.0 [facility] Work Phone: Blood erythrocytes count (nu mber/volume)on 07-14-2021 RBC (Bld) [#/Vol] 4.23 10*6/uL 4.2-5.4 [facility]: Blood hemoglobin measurement (mass/volume)on 07-14-2021 Hemoglobin (Bld) [Mass/Vol] 12.9 g/dL 12.0-15.0 [facility] Work Phone: Blood lymphocytes/100 leukoc yteson 07-14-2021 Lymphocytes/100 WBC (Bld) 26.0 % 19-41 [facility] Work Phone: Blood monocytes/100 leukocyt eson 07-14-2021 Monocytes/100 WBC (Bld) 10.4 % 0-10 [facility] Work Phone: Blood platelet mean volumeon 07-14-2021 Platelet mean volume (Bld) [Entitic vol] 10.9 fL 6.2-12.0 [facility] Work Phone: Determination of erythrocyte mean corpuscular volume (MCV)on 07-14-2021 MCV (RBC) [Entitic vol] 88.9 fL 81-99 [facility] Work Phone: Hematocrit Auto (Bld) [Volum e fraction]on 07-14-2021 Hematocrit (Bld) [Volume fraction] 37.6 % 37-47 [facility] Work Phone: Laboratory - Chemistry and C hemistry - challengeon 07-14-2021 ALP [Catalytic activity/Vol] 144 U/L 45-117 [facility] Work Phone: ALT [Catalytic activity/Vol] 28 U/L 13-56 [facility] Work Phone: CO2 [Moles/Vol] 24.0 mmol/L 21.0-32.0 [facility] Work Phone: Globulin (S) [Mass/Vol] 4.7 g/dL 2.2-4.2 [facility] Work Phone: Urea nitrogen/Creatinine [Mass ratio] 18.0 mg/mg 10-20 [facility] Work Phone: Laboratory - Hematology and Cell countson 07-14-2021 Erythrocyte distribution width (RBC) [Entitic vol] 46.7 fL 35.1-43.9 [facility] Work Phone: Erythrocyte distribution width (RBC) [Ratio] 14.5 % 11.6-14.6 [facility] Work Phone: Immature granulocytes/100 WBC (Bld) 0.400 % 0.0-0.9 [facility] Work Phone: Comment on above: IG% - Immature Granu locytes (promyelocytes, myelocytes and metamyelocytes) > 1% indicates that a LEFT SHIFT is Present. MCH (RBC) [Entitic mass] 30.5 pg 27.0-32.0 [facility] Work Phone: Nucleated RBC/100 WBC (Bld) [Ratio] 0 % 0-5 [facility] Work Phone: MCHC Auto (RBC) [Mass/Vol]on 07-14-2021 MCHC (RBC) [Mass/Vol] 34.3 g/dL 32-36 [facility] Work [facility]: No Panel Informationon 07-14 Estimated GFR (MDRD) Amer 95 mL/min >60 [facility] Work Phone: Comment on above: GFR Calc Estimated GFR (MDRD) Non-Af Amer 78 mL/min >60 [facility] Work Phone: Comment on above: Non- GFR Calc Vitamin D 25-Hydroxy 79.0 ng/mL [facility] Work Phone: Comment on above: Vitamin D 25(OH) Sta tus Range Deficiency <20 ng/mL (50nmol/L) Insufficiency 20 - 30 ng/mL (50 - 75 nmol/L) Sufficiency 30 - 100 ng/mL (75 - 250 nmol/L) Toxicity >100 ng/mL (>250 nmol/L) Platelets bldon 07-14-2021 Platelets (Bld) [#/Vol] 170 10*3/uL 150-450 [facility] Work Phone: Serum or plasma albumin kim urement (mass/volume)on 07-14-2021 Albumin [Mass/Vol] 2.9 g/dL 3.2-5.0 [facility] Work Phone: Serum or plasma albumin/glob ulin mass ratioon 07-14-2021 Albumin/Globulin [Mass ratio] 0.6 {ratio} 0.9-2.4 [facility] Work Phone: Serum or plasma calcium kim urement (mass/volume)on 07-14-2021 Calcium [Mass/Vol] 8.7 mg/dL 8.5-10.1 [facility] Work Phone: Serum or plasma creatinine m easurement (mass/volume)on 07-14-2021 Creatinine [Mass/Vol] 0.78 mg/dL 0.55-1.02 [facility] Work Phone: Comment on above: The validity of the calculated GFR & GFRAA in patients over 70 years has not been determined. Clinical correlation is essential. Serum or plasma urea nitroge n measurement (mass/volume)on 07-14-2021 Urea nitrogen [Mass/Vol] 14 mg/dL 7-18 [facility] Work Phone: Thin prep Papanicolaou smear with manual screeningon 07-14-2021 Thin prep Papanicolaou smear with manual screening 26 U/L 15-37 [facility] Work Phone: Thin prep Papanicolaou smear with manual screening 8 5-15 [facility] Work Phone: Absolute lymphocyte counton 07-08-2021 Lymphocytes Auto (Unsp spec) [#/Vol] 1.26 10*3/uL 0.83-4.51 [facility] Work Phone: Basophil percentageon 2021 Basophils/100 WBC (Bld) 0.6 % 0-1 [facility] Work Phone: Bilirubin [Mass/Vol] 0.40 mg/dL 0.20-1.00 [facility] Work Phone: Comment on above: For patients on eltr ombopag therapy, use of Dimension [place] TBIL is not recommended. Chloride [Moles/Vol] 104 mmol/L 98-107 [facility] Work Phone: Eosinophils/100 WBC (Bld) 4.5 % 0-5 [facility] Work Phone: Glucose [Mass/Vol] 181 mg/dL 74-106 [facility] Work Phone: Comment on above: Fasting Glucose resu lt greater than or equal to 126 mg/dL suggests DIABETES MELLITUS per A.D.A. criteria. Neutrophils (Bld) [#/Vol] 2.8 10*3/uL 2.0-7.7 [facility] Work Phone: Neutrophils/100 WBC (Bld) 58.0 % 47-70 [facility] Work Phone: Potassium [Moles/Vol] 4.5 mmol/L 3.5-5.1 [facility] Work Phone: Protein [Mass/Vol] 7.5 g/dL 6.4-8.2 [facility] Work Phone: Sodium [Moles/Vol] 136 mmol/L 136-145 [facility] Work Phone: WBC (Bld) [#/Vol] 4.9 10*3/uL 4.4-11.0 [facility] Work Phone: Blood erythrocytes count (nu mber/volume)on 07-08-2021 RBC (Bld) [#/Vol] 4.16 10*6/uL 4.2-5.4 [facility] Work Phone: Blood hemoglobin measurement (mass/volume)on 07-08-2021 Hemoglobin (Bld) [Mass/Vol] 12.2 g/dL 12.0-15.0 [facility] Work Phone: Blood lymphocytes/100 leukoc yteson 07-08-2021 Lymphocytes/100 WBC (Bld) 25.7 % 19-41 [facility] Work Phone: Blood monocytes/100 leukocyt eson 07-08-2021 Monocytes/100 WBC (Bld) 10.8 % 0-10 [facility] Work Phone: Blood platelet mean volumeon 07-08-2021 Platelet mean volume (Bld) [Entitic vol] 11.2 fL 6.2-12.0 [facility] Work Phone: Determination of erythrocyte mean corpuscular volume (MCV)on 07-08-2021 MCV (RBC) [Entitic vol] 89.2 fL 81-99 [facility] Work Phone: Hematocrit Auto (Bld) [Volum e fraction]on 07-08-2021 Hematocrit (Bld) [Volume fraction] 37.1 % 37-47 [facility] Work Phone: Laboratory - Chemistry and C hemistry - challengeon 07-08-2021 ALP [Catalytic activity/Vol] 131 U/L 45-117 [facility] Work Phone: ALT [Catalytic activity/Vol] 32 U/L 13-56 [facility] Work Phone: CO2 [Moles/Vol] 23.0 mmol/L 21.0-32.0 [facility] Work Phone: Globulin (S) [Mass/Vol] 4.6 g/dL 2.2-4.2 [facility] Work Phone: Urea nitrogen/Creatinine [Mass ratio] 18.5 mg/mg 10-20 [facility] Work Phone: Laboratory - Hematology and Cell countson 07-08-2021 Erythrocyte distribution width (RBC) [Entitic vol] 47.6 fL 35.1-43.9 [facility] Work Phone: Erythrocyte distribution width (RBC) [Ratio] 14.6 % 11.6-14.6 [facility] Work Phone: Immature granulocytes/100 WBC (Bld) 0.400 % 0.0-0.9 [facility] Work Phone: Comment on above: IG% - Immature Granu locytes (promyelocytes, myelocytes and metamyelocytes) > 1% indicates that a LEFT SHIFT is Present. MCH (RBC) [Entitic mass] 29.3 pg 27.0-32.0 [facility] Work Phone: Nucleated RBC/100 WBC (Bld) [Ratio] 0 % 0-5 [facility] Work Phone: MCHC Auto (RBC) [Mass/Vol]on 07-08-2021 MCHC (RBC) [Mass/Vol] 32.9 g/dL 32-36 [facility] Work Phone: No Panel Informationon 07-08 Estimated GFR (MDRD) Amer 84 mL/min >60 [facility] Work Phone: Comment on above: GFR Calc Estimated GFR (MDRD) Non-Af Amer 69 mL/min >60 [facility] Work Phone: Comment on above: Non- GFR Calc Vitamin D 25-Hydroxy 88.3 ng/mL [facility] Work Phone: Comment on above: Vitamin D 25(OH) Sta tus Range Deficiency <20 ng/mL (50nmol/L) Insufficiency 20 - 30 ng/mL (50 - 75 nmol/L) Sufficiency 30 - 100 ng/mL (75 - 250 nmol/L) Toxicity >100 ng/mL (>250 nmol/L) Platelets bldon 07-08-2021 Platelets (Bld) [#/Vol] 159 10*3/uL 150-450 [facility] Work Phone: Serum or plasma albumin kim urement (mass/volume)on 07-08-2021 Albumin [Mass/Vol] 2.9 g/dL 3.2-5.0 [facility] Work Phone: Serum or plasma albumin/glob ulin mass ratioon 07-08-2021 Albumin/Globulin [Mass ratio] 0.6 {ratio} 0.9-2.4 [facility] Work Phone: Serum or plasma calcium kim urement (mass/volume)on 07-08-2021 Calcium [Mass/Vol] 9.0 mg/dL 8.5-10.1 [facility] Work Phone: Serum or plasma creatinine m easurement (mass/volume)on 07-08-2021 Creatinine [Mass/Vol] 0.87 mg/dL 0.55-1.02 [facility] Work Phone: Comment on above: The validity of the calculated GFR & GFRAA in patients over 70 years has not been determined. Clinical correlation is essential. Serum or plasma urea nitroge n measurement (mass/volume)on 07-08-2021 Urea nitrogen [Mass/Vol] 16 mg/dL 7-18 [facility] Work Phone: Thin prep Papanicolaou smear with manual screeningon 07-08-2021 Thin prep Papanicolaou smear with manual screening 32 U/L 15-37 [facility] Work Phone: Thin prep Papanicolaou smear with manual screening 9 5-15 [facility] Work Phone: No Panel Informationon 06-12 Vitamin D 25-Hydroxy 101.7 ng/mL [facility] Work Phone: Comment on above: Vitamin D [...] with Vitamin D test results. Office Visit: [facility] 10-26-2016 Adolescent depression screening assessment Adolescent depression screening assessment Invalid Interpretation Code [facility] Work Phone: Documentation of current medications (procedure) Done Invalid Interpretation Code [facility] Work Phone: Fall risk assessment Fall risk assessment Invali d Interpretation Code [facility] Work Phone: Tobacco smoking status NHIS Never Invalid Interpretation Code [facility] Work Phone: Tobacco use CPHS Former smoker Invalid Interpretation Code [facility] Work Phone: Office Visit: [facility] 11-05-2015 Breast Mammogram screening Normal Bilateral Invalid Interpretation Code [facility] Work Phone: Colonoscopy (procedure) Colonoscopy (procedure) Invalid Interpretation Code [facility] Work Phone: Culture, urine Bacteria identified Cx Nom (U) Negative [facility] Work Phone: Bacteria identified Cx Nom (U) Escherichia coli [facility] Work Phone: Laboratory - Microbiology an d Antimicrobial susceptibility Bacteria identified Cx Nom (Bld) Negative [facility] Work Phone: No Panel Information SARS-CoV-2 & FLU Antigen (Rapid) [facility] Work Phone: Vital Signs Date Time Vital Sign Value Performing Clinician Facility 10-11-2024 07:00-0400 SaO2% (BldA) [Mass fraction] 95 % Dr. Shayna Malhotra MD Work Phone: [facility] 10-11-2024 06:49-0400 Body temperature 97.6 [degF] Dr. Shayna Malhotra MD Work Phone: [facility] 10-11-2024 06:49-0400 Diastolic blood pressure 76 mm[Hg] Dr. Shayna Malhotra MD Work Phone: [facility] 10-11-2024 06:49-0400 Heart rate 106 /min Dr. Shayna Malhotra MD Work Phone: [facility] 10-11-2024 06:49-0400 Respiratory rate 20 /min Dr. Shayna Malhotra MD Work Phone: [facility] 10-11-2024 06:49-0400 Systolic blood pressure 153 mm[Hg] Dr. Shayna Malhotra MD Work Phone: [facility] 10-11-2024 06:00-0400 Body mass index (BMI) [Ratio] 49.6 kg/m2 Dr. Shayna Malhotra MD Work Phone: [facility] 10-11-2024 06:00-0400 Body weight 135.[address] Shayna Malhotra MD Work Phone: [facility] 10-10-2024 14:58-0400 Body height 165.[address] Shayna Malhotra MD Work Phone: [facility] 10-09-2024 20:55-0400 Diastolic blood pressure 57 mm[Hg] Dr. Shayna Malhotra MD Work Phone: [facility] 10-09-2024 20:55-0400 Heart rate 102 /min Dr. Shayna Malhotra MD Work Phone: [facility] 10-09-2024 20:55-0400 Respiratory rate 20 /min Dr. Shayna Malhotra MD Work Phone: [facility] 10-09-2024 20:55-0400 SaO2% (BldA) [Mass fraction] 98 % Dr. Shayna Malhotra MD Work Phone: [facility] 10-09-2024 20:55-0400 Systolic blood pressure 121 mm[Hg] Dr. Shayna Malhotra MD Work Phone: [facility] 10-09-2024 16:55-0400 Body height 165.[address] Shayna Malhotra MD Work Phone: [facility] 10-09-2024 16:55-0400 Body mass index (BMI) [Ratio] 49.1 kg/m2 Dr. Shayna Malhotra MD Work Phone: [facility] 10-09-2024 16:55-0400 Body temperature 97.8 [degF] Dr. Shayna Malhotra MD Work Phone: [facility] 10-09-2024 16:55-0400 Body weight [address] Shayna Malhotra MD Work Phone: [facility] 07-04-2024 13:06-0500 Body mass index (BMI) [Ratio] 49.9 kg/m2 Dr. Shayna Malhotra MD Work Phone: [facility] 07-04-2024 13:06-0500 Body temperature 97.8 [degF] Dr. Shayna Malhotra MD Work Phone: [facility] 07-04-2024 13:06-0500 Body weight 136.[address] Shayna Malhotra MD Work Phone: [facility] 07-04-2024 13:06-0500 Diastolic blood pressure 80 mm[Hg] Dr. Shayna Malhotra MD Work Phone: [facility] 07-04-2024 13:06-0500 Heart rate 107 /min Dr. Shayna Malhotra MD Work Phone: [facility] 07-04-2024 13:06-0500 Respiratory rate 16 /min Dr. Shayna Malhotra MD Work Phone: [facility] 07-04-2024 13:06-0500 SaO2% (BldA) [Mass fraction] 94 % Dr. Shayna Malhotra MD Work Phone: [facility] 07-04-2024 13:06-0500 Systolic blood pressure 142 mm[Hg] Dr. Shayna Malhotra MD Work Phone: [facility] 01-09-2023 19:06-0400 Body temperature 99.5 [degF] Dr. Shayna Malhotra Work Phone: [facility] 01-09-2023 19:06-0400 Heart rate 115 /min Dr. Shayna Malhotra Work Phone: [facility] 01-09-2023 19:06-0400 Respiratory rate 16 /min Dr. Shayna Malhotra Work Phone: [facility] 01-09-2023 19:06-0400 SaO2% (BldA) [Mass fraction] 95 % Dr. Shayna Malhotra Work Phone: [facility] 01-09-2023 17:53-0400 Diastolic blood pressure 89 mm[Hg] Dr. Shayna Malhotra Work Phone: [facility] 01-09-2023 17:53-0400 Systolic blood pressure 166 mm[Hg] Dr. Shayna Malhotra Work Phone: [facility] 01-09-2023 17:15-0400 Body height 165.[address] Shayna Malhotra Work Phone: [facility] 01-09-2023 17:15-0400 Body mass index (BMI) [Ratio] 51 kg/m2 Dr. Shayna Malhotra Work Phone: [facility] 01-09-2023 17:15-0400 Body weight 139.[address] Shayna Malhotra Work Phone: [facility] 11-24-2022 13:42-0400 Body mass index (BMI) [Ratio] 51.4 kg/m2 Dr. Shayna Malhotra Work Phone: [facility] 11-24-2022 13:42-0400 Body temperature 97.9 [degF] Dr. Shayna Malhotra Work Phone: [facility] 11-24-2022 13:42-0400 Body weight 140.[address] Shayna Malhotra Work Phone: [facility] 11-24-2022 13:42-0400 Diastolic blood pressure 67 mm[Hg] Dr. Shayna Malhotra Work Phone: [facility] 11-24-2022 13:42-0400 Heart rate 112 /min Dr. Shayna Malhotra Work Phone: [facility] 11-24-2022 13:42-0400 Respiratory rate 20 /min Dr. Shayna Malhotra Work Phone: [facility] 11-24-2022 13:42-0400 SaO2% (BldA) [Mass fraction] 92 % Dr. Shayna Malhotra Work Phone: [facility] 11-24-2022 13:42-0400 Systolic blood pressure 125 mm[Hg] Dr. Shayna Malhotra Work Phone: [facility] 05-06-2022 16:07-0500 Body height 165.[address] Shayna Malhotra Work Phone: [facility] 05-06-2022 16:07-0500 Body mass index (BMI) [Ratio] 49.4 kg/m2 Dr. Shayna Malhotra Work Phone: [facility] 05-06-2022 16:07-0500 Body temperature 98.6 [degF] Dr. Shayna Malhotra Work Phone: [facility] 05-06-2022 16:07-0500 Body weight 134.[address] Shayna Malhotra Work Phone: [facility] 05-06-2022 16:07-0500 Diastolic blood pressure 91 mm[Hg] Dr. Shayna Malhotra Work Phone: [facility] 05-06-2022 16:07-0500 Heart rate 118 /min Dr. Shayna Malhotra Work Phone: [facility] 05-06-2022 16:07-0500 Respiratory rate 18 /min Dr. Shayna Malhotra Work Phone: [facility] 05-06-2022 16:07-0500 SaO2% (BldA) [Mass fraction] 96 % Dr. Shayna Malhotra Work Phone: [facility] 05-06-2022 16:07-0500 Systolic blood pressure 167 mm[Hg] Dr. Shayna Malhotra Work Phone: [facility] 11-24-2021 16:06-0400 Heart rate 100 /min Dr. Shayna Malhotra Work Phone: [facility] Work Phone: 11-24-2021 16:04-0400 Body temperature 98.4 [degF] Dr. Shayna Malhotra Work Phone: [facility] Work Phone: 11-24-2021 16:04-0400 Diastolic blood pressure 82 mm[Hg] Dr. Shayna Malhotra Work Phone: [facility] Work Phone: 11-24-2021 16:04-0400 Respiratory rate 17 /min Dr. Shayna Malhotra Work Phone: [facility] Work Phone: 11-24-2021 16:04-0400 SaO2% (BldA) [Mass fraction] 95 % Dr. Shayna Malhotra Work Phone: [facility] Work Phone: 11-24-2021 16:04-0400 Systolic blood pressure 147 mm[Hg] Dr. Shayna Malhotra Work Phone: [facility] Work Phone: 11-24-2021 08:43-0400 Body temperature 98 [degF] Dr. Shayna Malhotra Work Phone: [facility] Work Phone: 11-24-2021 08:43-0400 Diastolic blood pressure 61 mm[Hg] Dr. Shayna Malhotra Work Phone: [facility] Work Phone: 11-24-2021 08:43-0400 Heart rate 94 /min Dr. Shayna Malhotra Work Phone: [facility] Work Phone: 11-24-2021 08:43-0400 Respiratory rate 15 /min Dr. Shayna Malhotra Work Phone: [facility] Work Phone: 11-24-2021 08:43-0400 SaO2% (BldA) [Mass fraction] 95 % Dr. Shayna Malhotra Work Phone: [facility] Work Phone: 11-24-2021 08:43-0400 Systolic blood pressure 113 mm[Hg] Dr. Shayna Malhotra Work Phone: [facility] Work Phone: 11-24-2021 06:00-0400 Body weight 141.[address] Shayna Malhotra Work Phone: [facility] Work Phone: 11-23-2021 09:21-0400 Body height 165.[address] Shayna Malhotra Work Phone: [facility] Work Phone: 11-22-2021 17:49-0400 Body height 165.[address] Shayna Malhotra Work Phone: [facility] Work Phone: 11-22-2021 17:49-0400 Body mass index (BMI) [Ratio] 51.5 kg/m2 Dr. Shayna Malhotra Work Phone: [facility] Work Phone: 11-22-2021 17:49-0400 Body weight 140.[address] Shayna Malhotra Work Phone: [facility] Work Phone: 11-22-2021 17:05-0400 Body temperature 98.9 [degF] Dr. Shayna Malhotra Work Phone: [facility] Work Phone: 11-22-2021 17:05-0400 Diastolic blood pressure 78 mm[Hg] Dr. Shayna Malhotra Work Phone: [facility] Work Phone: 11-22-2021 17:05-0400 Heart rate 120 /min Dr. Shayna Malhotra Work Phone: [facility] Work Phone: 11-22-2021 17:05-0400 Respiratory rate 28 /min Dr. Shayna Malhotra Work Phone: [facility] Work Phone: 11-22-2021 17:05-0400 SaO2% (BldA) [Mass fraction] 96 % Dr. Shayna Malhotra Work Phone: [facility] Work Phone: 11-22-2021 17:05-0400 Systolic blood pressure 119 mm[Hg] Dr. Shayna Malhotra Work Phone: [facility] Work Phone: 10-02-2021 12:46-0400 Body height 165.1 cm Jennifer Cuevas MD Work Phone: [facility] 10-02-2021 12:46-0400 Body temperature 97.39 [degF] Jennifer Cuevas MD Work Phone: [facility] 10-02-2021 12:46-0400 Body weight 136.53 kg Jennifer Cuevas MD Work Phone: [facility] 10-02-2021 12:46-0400 Diastolic blood pressure 85 mm[Hg] Jennifer Cuevas MD Work Phone: [facility] 10-02-2021 12:46-0400 Heart rate 103 /min Jennifer Cuevas MD Work Phone: [facility] 10-02-2021 12:46-0400 Respiratory rate 20 /min Jennifer Cuevas MD Work Phone: [facility] 10-02-2021 12:46-0400 SaO2% (BldA) [Mass fraction] 98 % Jennifer Cuevas MD Work Phone: [facility] 10-02-2021 12:46-0400 Systolic blood pressure 152 mm[Hg] Jennifer Cuevas MD Work Phone: [facility] 09-22-2021 09:30-0400 Body temperature 98.4 [degF] Dr. Shayna Malhotra Work Phone: [facility] Work Phone: 09-22-2021 09:30-0400 Diastolic blood pressure 87 mm[Hg] Dr. Shayna Malhotra Work Phone: [facility] Work Phone: 09-22-2021 09:30-0400 Heart rate 85 /min Dr. Shayna Malhotra Work Phone: [facility] Work Phone: 09-22-2021 09:30-0400 Respiratory rate 17 /min Dr. Shayna Malhotra Work Phone: [facility] Work Phone: 09-22-2021 09:30-0400 SaO2% (BldA) [Mass fraction] 94 % Dr. Shayna Malhotra Work Phone: [facility] Work Phone: 09-22-2021 09:30-0400 Systolic blood pressure 151 mm[Hg] Dr. Shayna Malhotra Work Phone: [facility] Work Phone: 09-20-2021 13:57-0400 Body height 166.[address] Shayna Malhotra Work Phone: [facility] Work Phone: 09-20-2021 13:57-0400 Body weight 137.[address] Shayna Malhotra Work Phone: [facility] Work Phone: 09-20-2021 12:38-0400 Body mass index (BMI) [Ratio] 49.6 kg/m2 Dr. Shayna Malhotra Work Phone: [facility] Work Phone: 09-20-2021 12:06-0400 Body temperature 98 [degF] Dr. Shayna Malhotra Work Phone: [facility] Work Phone: 09-20-2021 12:06-0400 Diastolic blood pressure 71 mm[Hg] Dr. Shayna Malhotra Work Phone: [facility] Work Phone: 09-20-2021 12:06-0400 Heart rate 101 /min Dr. Shayna Malhotra Work Phone: [facility] Work Phone: 09-20-2021 12:06-0400 Respiratory rate 16 /min Dr. Shayna Malhotra Work Phone: [facility] Work Phone: 09-20-2021 12:06-0400 SaO2% (BldA) [Mass fraction] 97 % Dr. Shayna Malhotra Work Phone: [facility] Work Phone: 09-20-2021 12:06-0400 Systolic blood pressure 163 mm[Hg] Dr. Shayna Malhotra Work Phone: [facility] Work Phone: 09-20-2021 07:17-0400 Body height 165.[address] Shayna Malhotra Work Phone: [facility] Work Phone: 09-20-2021 07:17-0400 Body mass index (BMI) [Ratio] 52.5 kg/m2 Dr. Shayna Malhotra Work Phone: [facility] Work Phone: 09-20-2021 07:17-0400 Body weight 143.[address] Shayna Malhotra Work Phone: [facility] Work Phone: 09-01-2021 15:00-0400 Body height 165.1 cm [address] 1 [facility] 09-01-2021 15:00-0400 Body temperature 97.5 [degF] Pst 1 [facility] 09-01-2021 15:00-0400 Body weight 128.82 kg Pst 1 [facility] 09-01-2021 15:00-0400 Diastolic blood pressure 71 mm[Hg] Pst 1 [facility] 09-01-2021 15:00-0400 Heart rate 97 /min Pst 1 [facility] 09-01-2021 15:00-0400 Respiratory rate 18 /min Pst 1 [facility] 09-01-2021 15:00-0400 SaO2% (BldA) [Mass fraction] 97 % Pst 1 [facility] 09-01-2021 15:00-0400 Systolic blood pressure 127 mm[Hg] Pst 1 [facility] 08-11-2021 09:26-0500 Body mass index (BMI) [Ratio] 50.9 kg/m2 Dr. Shayna Malhotra Work Phone: [facility] Work Phone: 08-11-2021 09:26-0500 Body temperature 98.2 [degF] Dr. Shayna Malhotra Work Phone: [facility] Work Phone: 08-11-2021 09:26-0500 Body weight 138.[address] Shayna Malhotra Work Phone: [facility] Work Phone: 08-11-2021 09:26-0500 Diastolic blood pressure 83 mm[Hg] Dr. Shayna Malhotra Work Phone: [facility] Work Phone: 08-11-2021 09:26-0500 Heart rate 114 /min Dr. Shayna Malhotra Work Phone: [facility] Work Phone: 08-11-2021 09:26-0500 Respiratory rate 16 /min Dr. Shayna Malhotra Work Phone: [facility] Work Phone: 08-11-2021 09:26-0500 SaO2% (BldA) [Mass fraction] 96 % Dr. Shayna Malhotra Work Phone: [facility] Work Phone: 08-11-2021 09:26-0500 Systolic blood pressure 151 mm[Hg] Dr. Shayna Malhotra Work Phone: [facility] Work Phone: 08-11-2021 08:26-0500 Body mass index (BMI) [Ratio] 50.9 kg/m2 Dr. Shayna Malhotra Work Phone: [facility] Work Phone: 08-11-2021 08:26-0500 Body temperature 98.2 [degF] Dr. Shayna Malhotra Work Phone: [facility] Work Phone: 08-11-2021 08:26-0500 Body weight 138.[address] Shayna Malhotra Work Phone: [facility] Work Phone: 08-11-2021 08:26-0500 Diastolic blood pressure 83 mm[Hg] Dr. Shayna Malhotra Work Phone: [facility] Work Phone: 08-11-2021 08:26-0500 Heart rate 114 /min Dr. Shayna Malhotra Work Phone: [facility] Work Phone: 08-11-2021 08:26-0500 Respiratory rate 16 /min Dr. Shayna Malhotra Work Phone: [facility] Work Phone: 08-11-2021 08:26-0500 SaO2% (BldA) [Mass fraction] 96 % Dr. Shayna Malhotra Work Phone: [facility] Work Phone: 08-11-2021 08:26-0500 Systolic blood pressure 151 mm[Hg] Dr. Shayna Malhotra Work Phone: [facility] Work Phone: 07-30-2021 14:36-0500 Body mass index (BMI) [Ratio] 50.8 kg/m2 Dr. Shayna Malhotra Work Phone: [facility] Work Phone: 07-30-2021 14:36-0500 Body temperature 98.6 [degF] Dr. Shayna Malhotra Work Phone: [facility] Work Phone: 07-30-2021 14:36-0500 Body weight 138.[address] Shayna Malhotra Work Phone: [facility] Work Phone: 07-30-2021 14:36-0500 Heart rate 106 /min Dr. Shayna Malhotra Work Phone: [facility] Work Phone: 07-30-2021 14:36-0500 Respiratory rate 15 /min Dr. Shayna Malhotra Work Phone: [facility] Work Phone: 07-30-2021 13:36-0500 Body mass index (BMI) [Ratio] 50.8 kg/m2 Dr. Shayna Malhotra Work Phone: [facility] Work Phone: 07-30-2021 13:36-0500 Body temperature 98.6 [degF] Dr. Shayna Malhotra Work Phone: [facility] Work Phone: 07-30-2021 13:36-0500 Body weight 138.[address] Shayna Malhotra Work Phone: [facility] Work Phone: 07-30-2021 13:36-0500 Heart rate 106 /min Dr. Shayna Malhotra Work Phone: [facility] Work Phone: 07-30-2021 13:36-0500 Respiratory rate 15 /min Dr. Shayna Malhotra Work Phone: [facility] Work Phone: 07-26-2021 12:28-0500 Diastolic blood pressure 72 mm[Hg] Dr. Shayna Malhotra Work Phone: [facility] Work Phone: 07-26-2021 12:28-0500 Heart rate 98 /min Dr. Shayna Malhotra Work Phone: [facility] Work Phone: 07-26-2021 12:28-0500 Respiratory rate 23 /min Dr. Shayna Malhotra Work Phone: [facility] Work Phone: 07-26-2021 12:28-0500 SaO2% (BldA) [Mass fraction] 99 % Dr. Shayna Malhotra Work Phone: [facility] Work Phone: 07-26-2021 12:28-0500 Systolic blood pressure 140 mm[Hg] Dr. Shayna Malhotra Work Phone: [facility] Work Phone: 07-26-2021 11:28-0500 Diastolic blood pressure 72 mm[Hg] Dr. Shayna Malhotra Work Phone: [facility] Work Phone: 07-26-2021 11:28-0500 Heart rate 98 /min Dr. Shayna Malhotra Work Phone: [facility] Work Phone: 07-26-2021 11:28-0500 Respiratory rate 23 /min Dr. Shayna Malhotra Work Phone: [facility] Work Phone: 07-26-2021 11:28-0500 SaO2% (BldA) [Mass fraction] 99 % Dr. Shayna Malhotra Work Phone: [facility] Work Phone: 07-26-2021 11:28-0500 Systolic blood pressure 140 mm[Hg] Dr. Shayna Malhotra Work Phone: [facility] Work Phone: 07-26-2021 09:16-0500 Body mass index (BMI) [Ratio] 52.2 kg/m2 Dr. Shayna Malhotra Work Phone: [facility] Work Phone: 07-26-2021 09:16-0500 Body temperature 97.2 [degF] Dr. Shayna Malhotra Work Phone: [facility] Work Phone: 07-26-2021 09:16-0500 Body weight 142.[address] Shayna Malhotra Work Phone: [facility] Work Phone: 07-26-2021 08:16-0500 Body mass index (BMI) [Ratio] 52.2 kg/m2 Dr. Shayna Malhotra Work Phone: [facility] Work Phone: 07-26-2021 08:16-0500 Body temperature 97.2 [degF] Dr. Shayna Malhotra Work Phone: [facility] Work Phone: 07-26-2021 08:16-0500 Body weight 142.[address] Shayna Malhotra Work Phone: [facility] Work Phone: 10-26-2016 15:36-0400 BMI (Body Mass Index) 41.6 kg/m2 Sena Cox NP [facility] Work Phone: 10-26-2016 15:36-0400 BP Diastolic 97 mm[Hg] Sena Cox NP [facility] Work Phone: 10-26-2016 15:36-0400 BP Systolic 155 mm[Hg] Sena Cox NP [facility] Work Phone: 10-26-2016 15:36-0400 BSA (Body Surface Area) 2.12 m2 Sena Cox NP [facility] Work Phone: 10-26-2016 15:36-0400 Height 162.56 cm Sena Cox NP [facility] Work Phone: 10-26-2016 15:36-0400 Pulse (Heart Rate) 101 /min [facility] Work Phone: 10-26-2016 15:36-0400 Pulse Oximetry 97 % Sena Cox NP [facility] Work Phone: 10-26-2016 15:36-0400 Respiratory Rate 16 /min Sena Cox NP [facility] Work Phone: 10-26-2016 15:36-0400 Weight 109.95 kg Sena Cox [employer] [facility] Work Phone: Encounters Encounter Date Encounter Type Care Provider Facility Start: 11-07-2024 ambulatory [facility] Facility [facility] Start: 11-01-2024 ambulatory Shayna Marya Facility :[facility] Start: 10-30-2024 [facility] Start: 10-25-2024 ambulatory [facility] Facility :[facility] Start: 10-11-2024 End: 10-11-2024 ambulatory [facility] Facility:[facility] Start: 10-10-2024 Non-patient / Non-visit Dr. Tyrell Page MD -[facility] Work Phone: Start: 10-09-2024 ambulatory [facility] Start: 10-09-2024 End: 10-11-2024 Evaluation and management of inpatient Dr. Missael Hernandez DO -Medical Surgical 3 Work Phone: Start: 10-09-2024 Registered Referred Shayna Puga -[facility] Work Phone: Start: 10-08-2024 End: 10-09-2024 ambulatory Shayna ROSA Facility:[facility] Start: 07-09-2024 ambulatory Shayna ROSA Faci lity:[facility] Start: 07-09-2024 Registered Referred Shayna Resendez [facility] Work Phone: Start: 07-04-2024 End: 07-04-[address] Shayna Malhotra MD -[facility] Work Phone: Start: 07-04-2024 End: 07-04-2024 ambulatory Shaynadesi Malhotra Facility:[facility] Start: 06-22-2024 ambulatory Shaynadesi Malhotra Facility :[facility] Start: 05-28-2024 End: 05-28-2024 ambulatory [facility] Facility:[facility] Start: 04-09-2024 End: 04-09-2024 ambulatory Shayna ROSA Facility:[facility] Start: 01-09-2024 ambulatory Shayna ROSA Faci lity:[facility] Start: 07-08-2023 End: 07-08-2023 ambulatory [facility] Work Phone: Start: 07-08-2023 End: 07-08-2023 Departed Referred [facility] Work Phone: Start: 04-08-2023 End: 04-08-2023 Departed Referred [facility] Work Phone: Start: 01-09-2023 End: 01-09-2023 Emergency department patient visit Dr. Shayna Malhotra Work Phone: [facility]-Emergency Department Work Phone: Start: 11-24-2022 End: 11-24-[address] Shayna Malhotra Work Phone: [facility] Work Phone: Start: 10-13-2022 End: 10-13-[address] hSayna Malhotra Work Phone: [facility] Work Phone: Start: 08-12-2022 End: 08-12-[address] Shayna Malhotra Work Phone: [facility] Work Phone: Start: 08-12-2022 End: 08-12-[address] Shayna Malhotra Work Phone: [facility] Start: 07-13-2022 End: 07-13-[address] Shayna Malhotra Work Phone: [facility] Work Phone: Start: 07-13-2022 End: 07-13-[address] Shayna Malhotra Work Phone: [facility] Start: 06-08-2022 End: 06-08-[address] Shayna Malhotra Work Phone: [facility] Work Phone: Start: 06-08-2022 End: 06-08-[address] Shayna Malhotra Work Phone: [facility] Start: 05-06-2022 End: 05-06-[address] Shayna Malhotra Work Phone: [facility] Start: 04-13-2022 End: 04-13-2022 ambulatory [facility] Work Phone: Start: 04-13-2022 End: 04-13-2022 Departed Referred [facility] Start: 01-01-2022 End: 01-01-[address] Shayna Malhotra Work Phone: [place] [phone] Start: 12-11-[address] Shayna Malhotra Work Phone: [facility] [phone] Start: 12-01-[address] Shayna Malhotra Work Phone: [facility] [phone] Start: 11-27-[address] Shayna Malhotra Work Phone: [facility] [phone] Start: 11-24-2021 Non-patient / Non-visit Dr. Maryanne Malhotra Work Phone: [facility] Start: 11-23-2021 Non-patient / Non-visit Dr. Maryanne Malhotra Work Phone: [facility] Start: 11-23-2021 End: 11-24-2021 Non-patient / Non-visit Dr. Shayna Malhotra Work Phone: [facility] Start: 11-22-2021 Non-patient / Non-visit Dr. Maryanne Malhotra Work Phone: [facility] Start: 11-22-2021 End: 11-24-2021 Evaluation and management of inpatient Dr. Shayna Malhotra Work Phone: [facility]-Intensive Care Unit Start: 10-27-2021 End: 10-27-[address] Shayna Malhotra Work Phone: [facility] Start: 10-13-2021 End: 10-13-[address] Shayna Malhotra Work Phone: [facility] Start: 10-13-[address] Shayna Malhotra Work Phone: [facility] Start: 10-02-2021 End: 10-02-2021 ambulatory Jennifer Cuevas MD Work Phone: [facility] Gynecology Oncology Comment on above: Endometrial cancer ( HCC) (Primary Dx) Start: 10-02-2021 End: 10-02-2021 Patient encounter procedure Jennifer Cuevas MD Work Phone: [facility] Start: 09-22-2021 Non-patient / Non-visit Dr. Maryanne Malhotra Work Phone: [facility] Start: 09-21-2021 Telephone encounter Jennifer prasad MD Work Phone: [facility] Gynecology Oncology Comment on above: Appointment Cancelle d Start: 09-21-2021 Non-patient / Non-visit Dr. Maryanne Malhotra Work Phone: [facility] Start: 09-20-2021 Non-patient / Non-visit Dr. Maryanne Malhotra Work Phone: [facility] Start: 09-20-2021 End: 09-22-2021 Evaluation and management of inpatient Dr. Shayna Malhotra Work Phone: [facility]-Medical Surgical 3 Start: 09-10-2021 Telephone encounter Taniya Balderas APRN.CNP Work Phone: [facility] Gynecology Oncology Comment on above: Results Start: 09-10-2021 End: 09-10-[address] Shayna Malhotra Work Phone: [facility] Start: 09-10-[address] Shayna Malhotra Work Phone: [facility] Start: 09-09-2021 Telephone encounter Jennifer prasad MD Work Phone: [facility] Gynecology Oncology Comment on above: Patient Update Start: 09-01-2021 End: 09-01-2021 Admission to [address] Start: 09-01-2021 End: 09-01-2021 ambulatory Pst [...] encounter procedure Dr. Shayna Malhotra Work Phone: [facility]-Radiology, [facility] Start: 08-07-2021 End: 08-07-[address] Shayna Malhotra Work Phone: [facility]-Cat Scan, [facility] Start: 07-30-[address] Shayna Malhotra Work Phone: [facility] Oncology Start: 07-30-2021 End: 07-30-[address] Shayna Malhotra Work Phone: [facility] Start: 07-26-2021 End: 07-26-2021 Emergency department patient visit Dr. Shayna Malhotra Work Phone: [facility]-Emergency Department Start: 07-14-[address] Shayna Malhotra Work Phone: [facility] Start: 07-08-[address] Shayna Malhotra Work Phone: [facility] Start: 06-12-[address] Shayna Malhotra Work Phone: [facility] Procedures Date Procedure Procedure Detail Performing Clinician [...] Speci men Type: BLOOD SPECIMEN Ordering Facility: [facility] Address: [address] [place] [id number] Performed By: #### T [id number] #### [facility] BLOOD BANK CLIA [id number] [address] [place] [address] [place] Start: 08-11-2021 Plain chest X-ray Dr. Jean Malhotra Work Phone: Start: 03-04-2022 CT of abdomen and pe lvis without [...] Activity Detail Author Start: 10-11-2024 Patient discharge [facility] Start: 10-10-2024 [facility] Start: 10-10-2024 Consultation [facility] Start: 10-10-2024 Patient referral to dietitian [facility] Start: 10-09-2024 Following clinical pathway protocol [facility] Start: 10-09-2024 Assessment of risk o f venous thromboembolism [facility] Start: 10-09-2024 Care regimes management [facility] Start: 10-09-2024 Incentive spirometry [facility] Start: 10-09-2024 Insertion of cathete r into peripheral vein [facility] Start: 10-09-2024 Measuring intake and output [facility] Start: 10-09-2024 Notification of physician [facility] Start: 10-09-2024 Oxygen therapy [facility] Start: 10-09-2024 Providing care accor ding to standard [facility] Start: 10-09-2024 Provision of activit y privileges [facility] Start: 10-09-2024 Referral to occupati onal therapist [facility] Start: 10-09-2024 Referral to service [facility] Start: 10-09-2024 Seizure precautions [facility] Start: 10-09-2024 End: 10-09-2024 [facility] Start: 10-09-2024 MR Lower extremity W O contrast [facility] Start: 10-09-2024 MRI of lower extremity Extremi ty Lower without Contra [facility] Start: 10-09-2024 Verification routine [facility] Start: 10-09-2024 Admission procedure [facility] Start: 10-09-2024 Hospital admission, emergency, from emergency room, medical nature [facility] Start: 10-09-2024 End: 10-10-2024 [facility] Start: 10-09-2024 Thyroid stimulating hormone measurement [facility] Start: 10-09-2024 Consultation [facility] Start: 10-09-2024 Bacteria identified in Urine by Culture Urine Culture [facility] Start: 10-09-2024 Urine culture [facility] Start: 10-09-2024 Consultation [facility] Start: 10-09-2024 Patient referral to dietitian [facility] Start: 09-07-2024 DIABETES SCREEN DIABETES SCREEN [facility] Start: 07-04-2024 Patient referral [facility] Work Phone: Start: 11-24-2022 Patient referral [facility] Work Phone: Start: 05-06-2022 Patient referral [facility] Work Phone: Start: 02-04-2022 Influenza vaccination INFLUENZ A (Season Ended) [facility] Start: 11-25-2021 [facility] Work Phone: Start: 11-24-2021 Patient discharge [facility] Work Phone: Start: 11-22-2021 Troponin I measurement [facility] Work Phone: Start: 11-22-2021 Verification routine [facility] Work Phone: Start: 11-22-2021 Patient referral to dietitian [facility] Work Phone: Start: 11-22-2021 Following clinical pathway protocol [facility] Work Phone: Start: 11-22-2021 Assessment of risk o f venous thromboembolism [facility] Work Phone: Start: 11-22-2021 Care regimes management [facility] Work Phone: Start: 11-22-2021 Catheterization of vein [facility] Work Phone: Start: 11-22-2021 Insertion of cathete r into peripheral vein [facility] Work Phone: Start: 11-22-2021 Measuring intake and output [facility] Work Phone: Start: 11-22-2021 Providing care accor ding to standard [facility] Work Phone: Start: 11-22-2021 Provision of activit y privileges [facility] Work Phone: Start: 11-22-2021 Referral to occupati onal therapist [facility] Work Phone: Start: 11-22-2021 Referral to service [facility] Work Phone: Start: 11-22-2021 [facility] Work Phone: Start: 11-22-2021 Viral nucleic acid assay [facility] Work Phone: Start: 11-22-2021 Admission procedure [facility] Work Phone: Start: 11-22-2021 [facility] Work Phone: Start: 11-22-2021 End: 11-23-2021 [facility] Work Phone: Start: 11-22-2021 End: 11-22-2021 Blood culture [facility] Work Phone: Start: 09-22-2021 Patient discharge [facility] Work Phone: Start: 09-20-2021 End: 09-21-2021 [facility] Work Phone: Start: 09-20-2021 Following clinical pathway protocol [facility] Work Phone: Start: 09-20-2021 Assessment of risk o f venous thromboembolism [facility] Work Phone: Start: 09-20-2021 Care regimes management [facility] Work Phone: Start: 09-20-2021 Elevation of affecte d extremity [facility] Work Phone: Start: 09-20-2021 Insertion of cathete r into peripheral vein [facility] Work Phone: Start: 09-20-2021 Notification of physician [facility] Work Phone: Start: 09-20-2021 Providing care accor ding to standard [facility] Work Phone: Start: 09-20-2021 Provision of activit y privileges [facility] Work Phone: Start: 09-20-2021 Referral to occupati onal therapist [facility] Work Phone: Start: 09-20-2021 Referral to service [facility] Work Phone: Start: 09-20-2021 Self-administration of medication [facility] Work Phone: Start: 09-20-2021 Admission procedure [facility] Work Phone: Start: 09-20-2021 Patient referral to dietitian [facility] Work Phone: Start: 09-01-2021 End: 11-01-2021 CBC panel - Blood by Automated count [facility] Work Phone: Comment on above: Expected: 09/01/2021 , Expires: 11/01/2021 Start: 09-01-2021 End: 11-01-2021 CONFIRM BLOOD TYPE [facility] Work Phone: Comment on above: Expected: 09/01/2021 , Expires: 11/01/2021 Start: 09-01-2021 End: 11-01-2021 TYPE AND SCREEN,30 DAY [facility] Work Phone: Comment on above: Expected: 09/01/2021 , Expires: 11/01/2021 Start: 07-26-2021 Referral to oncologist [facility] Work Phone: Start: 06-06-2021 ADVANCE DIRECTIVE DISCUSSION ADVANCE DIRECTIVE DISCUSSION [facility] Start: 02-09-2021 LIPID SCREEN LIPID SCREEN [facility] Start: 02-04-2021 Influenza vaccination INFLUENZA (#1) [facility] Start: 03-01-2019 DIABETES SCREEN DIABETES SCREEN [facility] Start: 2017 BONE DENSITY BONE DENSITY [facility] Start: 2017 PNEUMOVAX AGE 65 AND OVER WITH 5YR LOOKBACK (#1) PNEUMOVAX AGE 65 AND OVER WITH 5YR LOOKBACK (#1) [facility] Start: 02-09-2017 Adult depression screening assessment DEPRESSION SCREENING [facility] Start: 02-09-2017 Mammography MAMMOGRAM [facility] Start: 12-09-2016 End: 12-09-2016 Appointment [facility] Work Phone: Start: 10-26-2016 End: 10-26-2016 Appointment Appointment [facility] Work Phone: Start: 10-26-2016 End: 10-26-2016 Appointment Appointment [facility] Work Phone: Start: 10-26-2016 End: 11-01-2016 *CMP Complete Metabolic Panel *CMP Complete Metabolic Panel [facility] Work Phone: Start: 10-26-2016 End: 11-01-2016 *Microalbumin, Creatine Ratio, rand urine *Microalbumin, Creatine Ratio, rand urine [facility] Work Phone: Start: 10-26-2016 End: 11-01-2016 HbA1c *HgA1C [facility] Work Phone: Start: 10-26-2016 End: 11-01-2016 Lipid panel [AGGREGATE] *Lipid Profile [facility] Work Phone: Start: 09-05-2011 PNEUMOCOCCAL: 65+ (2 - PCV) PNEUMOCOCCAL: 65+ (2 - PCV) [facility] Start: 2002 SHINGRIX VACCINE (1 of 2) SHINGRIX VACCINE (1 of 2) [facility] Start: 1997 COLOGUARD (FIT-DNA) COLOGUARD (FIT-D NA) [facility] Start: 1997 Colonoscopy COLONOSCOPY [facility] Start: 1997 COLORECTAL CANCER SCREENING COLORECTAL CANCER SCREENING [facility] Start: [address] COLONOGRAPHY [facility] Start: 1997 FECAL OCCULT BLOOD FECAL OCCULT BLOO D [facility] Start: 1997 SIGMOIDOSCOPY SIGMOIDOSCOPY [facility] Start: 12-28-1971 SHINGRIX VACCINE (1 of 2) SHINGRIX VACCINE (1 of 2) [facility] Start: 12-28-1971 Urine microalbumin profile DTAP,TDAP,TD (1 - Tdap) [facility] Start: 1957 COVID-19 VACCINE (#1) COVID-19 VACCI NE (#1) [facility] Start: 1957 COVID-19 VACCINE (1) COVID-19 VACCIN E (1) [facility] Amphetamines [Presen ce] in Urine by Screen method >1000 ng/mL [facility] Bacteria identified in Blood by Culture Blood Culture [facility] Work Phone: Bacteria identified in Urine by Culture Urine Culture [facility] Work Phone: Benzodiazepine measurement, urine [facility] Blood culture [facility] Work Phone: C reactive protein [Mass/volume] in Serum or Plasma [facility] Cancer Ag 125 [Units/volume] in Serum or Plasma [facility] Work Phone: Cocaine measurement, urine [facility] Erythrocyte sedimentation rate [facility] Ethanol [Mass/volume ] in Serum or Plasma [facility] fentaNYL [Presence] in Urine by Screen method [facility] Folate [Moles/volume ] in Serum or Plasma [facility] Hemoglobin A1c/Hemoglobin.total in Blood [facility] Magnesium measurement [facility] Methadone measuremen t, urine [facility] Patient Education [facility] docrinology Work Phone: Patient referral [facility] Work Phone: Phencyclidine [Prese nce] in Urine [facility] Troponin I measurement [facility] Work Phone: Urine cannabinoid measurement [facility] Urine culture [facility] Urine opiate measurement [facility] Immunizations Immunization Date Immunization Notes Care Provider Arlin sen 03-30-2016 influenza, injectabl e, quadrivalent, preservative free [facility] 03-30-2016 influenza, seasonal, injectable Dr. Shayna Malhotra Work Phone: [facility] 10-31-2012 influenza, injectabl e, quadrivalent, preservative free [facility] 10-31-2012 influenza, seasonal, injectable Dr. Shayna Malhotra Work Phone: [facility] 06-06-2012 pneumococcal polysaccharide vaccine, [address] Shayna Malhotra Work Phone: [facility] 09-04-2010 pneumococcal polysaccharide vaccine, 23 valent [facility] 1 [facility] Work Phone: Payers Date Payer Category Payer Self-pay [id number] 2021 Medicare [id number] 1.2.8 [id number] 2016 Unknown [id number] 2016 Unknown [id number] Unknown [id number] 2.16.8 [id number] Unknown [id number] 2.16.8 40.1.805265.3.579.2.462 Unknown [id number] 2.16.8 40.1.700318.3.579.2.462 Unknown [id number] 2.16.8 40.1.376311.3.579.2.462 Unknown [id number] 2.16.8 40.1.470109.3.579.2.462 Unknown [id number] 2.16.8 40.1.346363.3.579.2.462 Unknown [id number] 2.16.8 40.1.690603.3.579.2.462 Unknown [id number] 2.16.8 40.1.328066.3.579.2.462 Unknown [id number] 2.16.8 40.1.200660.3.579.2.462 Unknown [id number] 2.16.8 40.1.269446.3.579.2.462 Unknown [id number] 2.16.8 40.1.165190.3.579.2.462 Unknown [id number] 2.16.8 40.1.899801.3.579.2.462 Unknown [id number] 2.16.8 40.1.086940.3.579.2.462 Unknown [id number] 2.16.8 40.1.175725.3.579.2.462 Unknown [id number] 2.16.8 40.1.993261.3.579.2.462 Unknown [id number] 2.16.8 40.1.108368.3.579.2.462 Unknown [id number] 2.16.8 40.1.977337.3.579.2.462 Social History Date Type Detail Facility Start: 07-29-2021 End: 10-09-2024 Tobacco smoking status VTIS Ex-smoker [facility] History of tobacco use Cigarette Smoker C [facility] Start: 07-29-2021 Cigarettes smoked current (pack per day) - Reported 0.5 [facility] Start: 07-29-2021 Tobacco use and exposure Smokeless tobacco non-user [facility] Start: 09-01-2021 End: 10-02-2021 Alcohol intake Current non-drinker of alcohol (finding) [facility] Start: 1950 Sex Assigned At Not on file C [facility] Start: 08-22-2021 End: 10-02-2021 Exposure to SARS-CoV-2 (event) Not sure [facility] Start: 09-20-2021 End: 01-09-2023 Tobacco smoking status NHIS Unknown if ever smoked [facility] Start: 08-02-2017 None [facility] Start: 08-02-2017 Alone [facility] Start: 08-02-2017 Non-smoker [facility] Start: 1950 Sex Assigned At Female [facility] Start: 10-09-2024 Sex Female (finding) [facility] Medical Equipment Procedure Code Equipment Code Equipment [...] 09-14-2017 Lancets (Freesty le Lancets) 28 gauge mis Start: 03-01-2019 End: 11-23-2021 Goals Date Patient Goal Desired Activity /State Functional Status Date Assessment Result Facility 10-11-2024 Functional status Activity Abili ty With Assist of 2 [facility] Work Phone: 10-10-2024 Functional status Active Range of Motion [facility] Work Phone: 11-24-2021 Functional status Ambulates;Chair [facility] Work Phone: 09-22-2021 Functional status Ambulates [facility] Work Phone: 09-22-2021 Functional status Ambulates [facility] Work Phone: 09-21-2021 Functional status Tolerates Activity Well [facility] Work Phone: Mental Status Date Assessment Result Facility 10-11-2024 Cognitive function Voice/Name [facility] Work Phone: 10-10-2024 Cognitive function Cooperative;Anxious;Ta lkative [facility] Work Phone: 11-24-2021 Cognitive function Voice/Name [facility] Work Phone: 09-22-2021 Cognitive function Voice/Name [facility] Work Phone: 09-20-2021 Cognitive function Level Of Cons ciousness Awake;Alert;Appropriate;Follow s Commands;Drowsy [facility] Work Phone: Clinical Notes 07-29-2021 to 10-11-2024 Note Date & Type Note Facility 10-11-2024 Note [facility] Medical Records Department [address] [place] [address] Discharge Summary 10/11/24 1135 MR#: [id number] Acct: [id number] Name: VIDA NINA Rep #: [id number] : 1950 73 From: Tyrell Page MD PCP: Dr. Shayna Malhotra MD Status:DIS IN Location: [facility] [id number] Providers Date of Admission: 10/09/24 Date of [...] status: with other specified complication Diabetes mellitus wind farm operations manager insulin use: with wind farm operations manager use Qualified Code(s): E11.69 - Type 2 diabetes mellitus with other specified complication; Z79.4 - assisted (current) use of insulin Plan 73-year-old female [...] edema. No soft tissue gas. Will consult supervisor motor vehicle assembly for further opinion. PT and OT and pain control. CRP and ESR elevated. 10/11: Yesterday evening patient has psychotic symptoms of [...] 72.1 H, Lymph % (Auto) 16.3 L, Fallon % (Auto) 8.3, Eos % (Auto) 2.5, Baso % (more content not included)... [facility] 10-10-2024 Progress note Note Date/Time October 10, 2024 4:49pm [facility] Medical Records Department [address] [place] [address] Progress Note - Hospitalist 10/10/24 0739 MR#: [id number] Acct: [id number] Name: VIDA NINA Rep #:[id number] : 1950 73 From: Tyrell Resendez PCP: Dr. Shayna Malhotra MD Status:ADM IN Location: [place] [address]-1 Reason for Visit Reason for Visit: Diagnoses Type 2 diabetes mellitus with other specified complication (10/09/24) Morbid (severe) obesity due to excess calories (10/09/24) Bipolar disorder, unspecified (10/09/24) Neuralgia and neuritis, unspecified (10/09/24) Acute cystitis with hematuria (10/09/24) Very low level of personal hygiene (10/09/24) Body mass index [BMI] 45.0-49.9, adult (10/09/24) Other specified health status (10/09/24) senior dot net developer (current) use of insulin (10/09/24) Objective Data Objective Data Vital Signs: Vital Signs Temp Pulse Resp BP Pulse Ox O2 Del Method 98.7 F 96 18 133/66 H 98 Room Air 10/10/24 05:33 10/10/24 05:33 10/10/24 05:33 10/10/24 05:33 10/10/24 05:33 05/07/25 05:33 Oxygen Delivery Method Room Air Weight: [...] 72.1 H, Lymph % (Auto) 16.3 L, Fallon % (Auto) 8.3, Eos % (Auto) 2.5, [...] Clarity Cloudy, Urine pH 5.0, Ur Specific Tracy 1.020, Urine Protein 30 H, Urine Glucose [...] % (Auto) 65.4, Lymph % (Auto) 19.6, Fallon % (Auto) 9.1, Eos % (Auto) 5.1 [...] arthritic changes. Soft tissue swelling. Reading Location: [facility] Lower Extremity CT 10/09/24 22:15 IMPRESSION: Lateral [...] Hernandez at 2:20 a.m. 10/10/2024 Reading Location: [id number] Physical Exam Narrative Seen and examined. Patient [...] status: with other specified complication Diabetes mellitus wind farm operations manager insulin use: with fci use Qualified Code(s): E11.69 - Type 2 diabetes mellitus with other specified complication; Z79.4 - senior dot net developer (current) use of insulin PLAN: Plan 73-year-old [...] edema. No soft tissue gas. Will consult supervisor motor vehicle assembly for further opinion. PT and OT and [...] 72.1 H, Lymph % (Auto) 16.3 L, Fallon % (Auto) 8.3, Eos % (Auto) 2.5, [...] Clarity Cloudy, Urine pH 5.0, Ur Specific Tracy 1.020, Urine Protein 30 H, Urine Glucose [...] % (Auto) 65.4, Lymph % (Auto) 19.6, Fallon % (Auto) 9.1, Eos % (Auto) 5.1 [...] 165 H Charges/Coding Visit Charges Inpatient E&M: 66364 Subs Hosp L2 10/10/24 1530 <Electronically signed [...] need inpatient psych unit facility transfer 10/10/24 1649<Electronically signed by Tyrell Page MD> Cosigner Signature (if applicable): cc: ~* Signed [facility] Work Phone: 1(297) 448-662605-07-2025 Progress note [facility] Medical Records Department [address] [place] [address] Progress Note - Hospitalist 10/10/24 0739 MR#: [id number] Acct: [id number] Name: VIDA NINA Rep #:[id number] : 1950 73 From: Tyrell Resendez PCP: Dr. Shayna Malhotra MD Status:ADM IN Location: [place] [address]-1 Reason for Visit Reason for Visit: Diagnoses Type 2 diabetes mellitus with other specified complication (10/09/24) Morbid (severe) obesity due to excess calories (10/09/24) Bipolar disorder, unspecified (10/09/24) Neuralgia and neuritis, unspecified (10/09/24) Acute cystitis with hematuria (10/09/24) Very low level of personal hygiene (10/09/24) Body mass index [BMI] 45.0-49.9, adult (10/09/24) Other specified health status (10/09/24) assisted (current) use of insulin (10/09/24) Objective Data [...] 72.1 H, Lymph % (Auto) 16.3 L, Fallon % (Auto) 8.3, Eos % (Auto) 2.5, [...] Clarity Cloudy, Urine pH 5.0, Ur Specific Tracy 1.020, Urine Protein 30 H, Urine Glucose [...] % (Auto) 65.4, Lymph % (Auto) 19.6, Fallon % (Auto) 9.1, Eos % (Auto) 5.1 [...] arthritic changes. Soft tissue swelling. Reading Location: [facility] Lower Extremity CT 10/09/24 22:15 IMPRESSION: Lateral [...] Hernandez at 2:20 a.m. 10/10/2024 Reading Location: [id number] Physical Exam Narrative Seen and examined. Patient [...] complication Diabetes mellitus fci insulin use: with wind farm operations manager use Qualified Code(s): E11.69 - Type 2 diabetes mellitus with other specified complication; Z79.4 - assisted (current) use of insulin PLAN: Plan 73-year-old [...] edema. No soft tissue gas. Will consult supervisor motor vehicle assembly for further opinion. PT and OT and [...] 72.1 H, Lymph % (Auto) 16.3 L, Fallon % (Auto) 8.3, Eos % (Auto) 2.5, [...] Clarity Cloudy, Urine pH 5.0, Ur Specific Tracy 1.020, Urine Protein 30 H, Urine Glucose [...] % (Auto) 65.4, Lymph % (Auto) 19.6, Fallon % (Auto) 9.1, Eos % (Auto) 5.1 [...] 165 H Charges/Coding Visit Charges Inpatient E&M: 46170 Subs Hosp L2 10/10/24 1530 Cosigner Signature (if applicable): CC: ~ Signed [...] Cosigner Signature (if applicable): cc: ~* Signed [facility]05-07-2025 History and physical note Author Missael Lomeli [facility] Note Date/Time October 10, 2024 6:53am [facility] Medical Records Department [address] [place] [address] H&P Exam - Hospitalist 10/09/242118 MR#: [id number] Acct: [id number] Name: VIDA NINA Rep #:[id number] : 1950 73 From: Missael Joiner DO PCP: Dr. Shayna Malhotra MD Status:ADM IN Location: [address] - General General Date of Admission: 10/09/24 Date of Service: 10/09/24 Chief Complaint: Left Heel Pain, Poor Hygiene and Unable to Care for Herself. HPI Narrative VIDA NINA, is a 73 F with a past medical history of essential hypertension; on lisinopril, hyperlipidemia; on atorvastatin, morbid obesity; with a BMI of 49.2 this admission, former tobacco abuse times ~45 years (quit ~2017), DM-2; ofunknown control on dulaglutide weekly, empagliflozin [...] is currently residing in assisted living at [facility] presents to [facility] ER complaining of worsening Left heel pain with patient notably having poor hygiene and unable to care for herself. Ms. Nina reports her acute symptoms began ~2 weeks prior to admission with increasing pain from her Left heel. She states the pain is severe and she feelslike she is, "having a baby out of her Left heel". She states her pain is made worse with weightbearing, walking and palpation and she speculated that she might have a severe case of plantar fasciitis. She states that on Tuesday, , 2024 she underwent x-rays after being seen [...] skin folds and extremely poor hygiene with MRI TECHNOLOGIST having social work consulted and patient felt [...] is expected to extend beyond 2 midnights. [facility] Medical History Obesity Anxiety Cancer Anxiety Diabetes [...] #0 grams 11/24/21 Unknown Rx powder ([facility]) quetiapine 100 mg tablet 300 [...] (Auto) 72.1 H, Lymph % (Auto) 16.3 L,Fallon % (Auto) 8.3, Eos % (Auto) 2.5, [...] Clarity Cloudy, Urine pH 5.0, Ur Specific Tracy 1.020, Urine Protein 30 H, Urine Glucose [...] changes. Soft tissue swelling. Reading Location: [facility] Imaging Services [address] [place] [address] Extremity Lower without Contra MR#: [id number] Acct: [id number] Name: VIDA NINA Rep #: [id number] : 1950 F 73 From: Saul Sanchez MD PCP: Dr. Shayna Malhotra MD Status: ADM IN Study: Extremity Lower without Contra Date of Exam: 10/09/24 Exam# [id number] Ordering Dr: Missael Hernandez DO PROCEDURE: EXTREMITY [...] Hernandez at 2:20 a.m. 10/10/2024 Reading Location: [facility] CC: Dr. Missael Hernandez, ; Dr. Shayna Malhotra MD ~ Dirt Contractor: Signed Assessment & Plan Assessment/Plan (1) Acute cystitis with hematuria: (2) Neuropathic pain of foot: (3) Poor hygiene: (4) Unable to care for self: (5) Bipolar 1 disorder: (6) Morbid obesity with BMI of 45.0-49.9, adult: (7) DM2 (diabetes mellitus, type 2): QUALIFIERS: Diabetes mellitus complication status: with other specified complication Diabetes mellitus wind farm operations manager insulin use: with fci use Qualified Code(s): E11.69 - Type 2 diabetes mellitus with other specified complication; Z79.4 - senior dot net developer (current) use of insulin PLAN: Plan 1. Acute Cystitis; with microscopic hematuria in the setting of known frequent UTIs - Admit to general medical floor. Continue empiric IV ceftriaxone and await culture and sensitivity data. Give acetaminophen as needed for tmci-yv-ujpwbdth (level 1- 5/10) pain or fever. Give [...] 75 minutes. Charges/Coding Visit Charges Inpatient E&M: 64699 Init Hosp L3 10/10/24 0653 <Electronically signed by Missael Hernandez DO> Cosigner Signature (if applicable): CC: Dr. Missael Hernandez DO; Dr. Shayna Malhotra MD~ Signed [facility] Work Phone: 1(954) 967-596305-07-2025 History and physical note [facility] Medical Records Department [address] [place] [address] H&P Exam - Hospitalist 10/09/242118 MR#: [id number] Acct: [id number] Name: VIDA NINA Rep #:[id number] : 1950 73 From: Missael Joiner DO PCP: Dr. Shayna Malhotra MD Status:ADM IN Location: SC3 [id number] [facility] - General General Date of Admission: 10/09/24 [...] is currently residing in assisted living at [facility] presents to [facility] ER complaining of worsening Leftheel pain with patient notably having poor hygiene and unable to care for herself. Ms. Nina reports her acute symptoms began ~2 weeks prior to admission with increasing pain from her Left heel. She states the pain is severe and she feelslike she is, "having a baby out of her Left heel". She states her pain is made worse with weightbearing, walking and palpation and she speculated that she might have a severe case of plantar fasciitis. She states that on Tuesday, , 2024 she underwent x-rays after being seen [...] skin folds and extremely poor hygiene with MRI TECHNOLOGIST having social work consulted and patient felt [...] is expected to extend beyond 2 midnights. [facility] Medical History Obesity Anxiety Cancer Anxiety Diabetes [...] #0 grams 11/24/21 Unknown Rx powder ([facility]) quetiapine 100 mg tablet 300 [...] (Auto) 72.1 H, Lymph % (Auto) 16.3 L,Fallon % (Auto) 8.3, Eos % (Auto) 2.5, [...] Clarity Cloudy, Urine pH 5.0, Ur Specific Tracy 1.020, Urine Protein 30 H, Urine Glucose [...] changes. Soft tissue swelling. Reading Location: [facility] Imaging Services [address] [place] [place] [address] Extremity Lower without Contra MR#: [id number] Acct: [id number] Name: VIDA NINA Rep #: [id number] : 1950 F 73 From: Saul Sanchez MD PCP: Dr. Shayna Malhotra MD Status: ADM IN Study: Extremity Lower without Contra Date of Exam: 10/09/24 Exam# [id number] Ordering Dr: Missael Hernandez DO PROCEDURE: EXTREMITY [...] Hernandez at 2:20 a.m. 10/10/2024 Reading Location: [facility] CC: Dr. Missael Hernandez DO; Dr. Shayna Malhotra MD ~ Dirt Contractor: Signed Assessment & Plan Assessment/Plan (1) Acute cystitis with hematuria: (2) Neuropathic pain of foot: (3) Poor hygiene: (4) Unable to care for self: (5) Bipolar 1 disorder: (6) Morbid obesity with BMI of 45.0-49.9, adult: (7) DM2 (diabetes mellitus, type 2): QUALIFIERS: Diabetes mellitus complication status: with other specified complication Diabetes mellitus wind farm operations manager insulin use: with fci use Qualified Code(s): E11.69 - Type 2 diabetes mellitus with other specified complication; Z79.4 - assisted (current) use of insulin PLAN: Plan 1. Acute Cystitis; with microscopic hematuria in the setting of known frequent UTIs - Admit to general medical floor. Continue empiric IV ceftriaxone and await culture and sensitivity data. Give acetaminophen as needed for ekzs-oc-winqpsry (level 1-5/10) pain or fever. Give oxycodone [...] 75 minutes. Charges/Coding Visit Charges Inpatient E&M: 15224 Init Hosp L3 10/10/24 0653 Cosigner Signature (if applicable): CC: Dr. Missael Hernandez DO; Dr. Shayna Malhotra MD~ Signed [facility]05-07-2025 Radiology Diagnostic study note [facility] Imaging Services [address] [place] [address] Extremity Lower without Contra MR#: [id number] Acct: [id number] Name: VIDA NINA Rep #: [id number] : 1950 F 73 From: Daniel Sanchez MD PCP: Dr. Shayna Malhotra MD Status: ADM IN Study:Extremity Lower without Contra Date of Exam: 10/09/24 Exam# [id number] Ordering Dr: Missael Piña DO PROCEDURE: EXTREMITY [...] Hernandez at 2:20 a.m. 10/10/2024 Reading Location: [facility] CC: Dr. Missael Hernandez DO; Dr. Shayna Malhotra MD ~ Dirt Contractor: Signed [facility]05-06-2025 Discharge summary Author Dany Richardson [facility] Note Date/Time October 09, 2024 9:22pm [facility] Medical Records Department [address] [place] [address] Emergency Department Summary 10/09/24 MR#: [id number] Acct: [id number] Name: VIDA NINA Rep #:[id number] : 1950 73 From: Dany Richardson MD PCP: Dr. Shayna Malhotra MD Status:REG ER Location: ED HPI History of Present Illness Chief Complaint: Lower Extremity Injury Narrative Narrative: 73-year-old female states that she had pins placed in her left foot approximately 15 years ago Kaser after breaking her heel. She is currently[facility]. She states for the last 2 weeks she has been having increasing foot pain. She states that on Tuesday, probably of the last week, she had x-[facility]ained at the [facility]. She went and saw Dr. Shayna Malhotra on Tuesday, but he did not have the x-ray results. She states that she is having a lot of pain in her left heel that is worse with weightbearing and walking and palpation. She states that it feels as if she is having a baby out of her left heel. [facility] Medical History Obesity Anxiety Cancer Anxiety Diabetes [...] #0 grams 11/24/21 Unknown Rx powder ([facility]) quetiapine 100 mg tablet 300 [...] nonspecific foot pain. She was given 1 Smilax for analgesia here, and x- rays were [...] plan was to discharge her back to [facility], however I was approached by the [...] 72.1 H Lymph % (Auto) 16.3 L Fallon % (Auto) 8.3 Eos % (Auto) 2.5 [...] Clarity Cloudy Urine pH 5.0 Ur Specific Tracy 1.020 Urine Protein 30 H Urine Glucose [...] tract infection) Disposition Disposition: Acute Care [facility] What to do if you have Problems For any increased pain, shortness of breath, bleeding, nausea or vomiting, chestpain, or any unexpected problems, contact your Primary Care Provider. Call [facility] ([phone]) or report to the closest Emergency Room. Call 911 if necessary. 10/09/242121 <Electronically signed by Dany Richardson MD> Cosigner Signature (if applicable): CC: Dr. Shayna Malhotra MD ~ Signed [facility] Work Phone: 1(443) 458-215505-06-2025 Discharge summary [facility] Medical Records Department [address] [place] [address] Emergency Department Summary 10/09/24 MR#: [id number] Acct: [id number] Name: VIDA NINA Rep #:[id number] : 1950 73 From: Dany Richardson MD PCP: Dr. Shayna Malhotra MD Status:REG ER Location: ED HPI History of Present Illness Chief Complaint: Lower Extremity Injury Narrative Narrative: 73-year-old female states that she had pins placed in her left foot approximately 15 years ago Kaser after breaking her heel. She is currentlyin [facility]. She states for the last 2 weeks she has been having increasing foot pain. She states that on Tuesday, probably of the last week, she had x-raysobtained at the [facility]. She went and saw Dr. Shayna Malhotra on Tuesday, but he did not have thex-ray results. She states that she is having a lot of pain in her left heel that is worse with weightbearing and walking and palpation. She states that it feels as if she is having a baby out of her left heel. [facility] Medical History Obesity Anxiety Cancer Anxiety Diabetes [...] #0 grams 11/24/21 Unknown Rx powder ([facility]) quetiapine 100 mg tablet 300 [...] nonspecific foot pain. She was given 1 Smilax for analgesia here, and x-rays were obtained of the left footin 3 views. On my independent interpretation of her x-rays, there are postsurgical changes including hardware,but no evidence of a periprosthetic fracture, no noted loosening of hardware. There are arthritic changes as well. I reviewed the radiology report which confirms my independent interpretation. Initially my plan was to discharge her back to [facility], however I was approached by the [...] 72.1 H Lymph % (Auto) 16.3 L Fallon % (Auto) 8.3 Eos % (Auto) 2.5 [...] Clarity Cloudy Urine pH 5.0 Ur Specific Tracy 1.020 Urine Protein 30 H Urine Glucose [...] tract infection) Disposition Disposition: Acute Care [facility] What to do if you have Problems For any increased pain, shortness of breath, bleeding, nausea or vomiting, chestpain, or any unexpected problems, contact your Primary Care Provider. Call [facility] ([phone]) or report tothe closest Emergency Room. Call 911 if necessary. 10/09/242121 Cosigner Signature (if applicable): CC: Dr. Shayna Malhotra MD ~ Signed [facility]05-06-2025 Radiology Diagnostic study note [facility] Imaging Services [address] [place] [address] Foot min 3 Views MR#: [id number] Acct: [id number] Name: VIDA NINA Rep #: [id number] : 1950 F 73 From: Katarina Jiménez MD PCP: Dr. Shayna Malhotra MD Status: [facility] [facility] ER Study:Foot min 3 Views Date of Exam: 11/28 Exam# [id number] Ordering Dr: Dany Richardson MD EXAM: LEFT [...] Richardson MD; Dr. Shayna Malhotra MD ~ Dirt Contractor: Signed [facility]01-29-2025 Evaluation note* Diagnosis Onset Date [...] Unable to care for self acute M 2024 9:56pm UTI (urinary tract infection) acute October 09, 2024 9: 56pm DM2 (diabetes mellitus, type 2) chronic October 09, 2024 9: 56pm [facility] Work Phone: [phone]) 554-359604-29-2022 NoteHNO ID: [id number] Author: Jennifer Cuevas MD Service: ? Author Type: Physician Type: Progress Notes Filed: 12/01/2021 8:04 AM Note Text: Gynecologic Oncology [facility] Follow up visit Date of service: 10/02/2021 PROBLEM/CC: Vida Nina presents for a post-op visit. SURGICAL PATHOLOGY [[id number]] Collected: 09/07/21 1104 Order Status: Completed Specimen: Tissue from UTERUS, CERVIX, BILATERAL FALLOPIAN TUBES AND BILATERAL OVARIES Updated: 09/11/21 1319 Case Report -- Surgical Pathology Report ? Case: [id number] ? Authorizing Provider: ?Jennifer Cuevas MD ? [...] been determined by the performing laboratory within [facility]?s [facility] [place] ([facility], [facility], [facility] or [facility]) in a manner consistent with CLIA [...] pT, pN, and ( (more content not included)...[facility]04-29-2022 History of Present illness Narrative* Jennifer Cuevas MD - 10/02/2021 1:00 PM EDT Gynecologic Oncology [facility] Follow up visit Date of service: 10/02/2021 PROBLEM/CC: Vida Nina presents for a post-op visit. SURGICAL PATHOLOGY [[id number]] Collected: 09/07/21 1104 Order Status: Completed Specimen: Tissue from UTERUS, CERVIX, BILATERAL FALLOPIAN TUBES AND BILATERAL OVARIES Updated: 09/11/21 1319 Case Report -- Surgical Pathology Report Case: [id number] Authorizing Provider: Jeninfer Cuevas MD Collected: 09/07/2021 11:04 AM Ordering Location: CT SURGERY OR Received: 09/07/2021 11:12 AM Pathologist: [...] been determined by the performing laboratory within [facility] Pathology and Laboratory Medicine [place] ([facility], [facility], [facility] or [facility]) in a manner consistent with CLIA [...] AND BILATERAL OVARIES. Received in formalin labeled "uterus cervix bilateral fallopian tubes and bilateral ovaries" is a uterus with attached cervix and [...] fibrous ovarian parenchyma with no lesions identified. Chicken And Fish Cleaner sections are submitted as follows: A1-anterior cervix [...] A 17-right ovary Gross examination performed at [facility], [address] [place] [address] CLIA#[id number] OLS September 08, 2021 10:33 AM Intraoperative [...] many years since she has seen a pen tender, maybe > 10 years. Reports normal pap [...] C (97.4 F) Resp 20 Ht 5' 5" (1.651 m) Wt (!) 301 lb(136.5 kg) SpO2 98% BMI 50.09 kg/m GENERAL: Appears well. She is here with a caregiver from the facility where she lives. Her incisions have healed well. Abdomen non-tender. Master Merchandiser for exam: Sherrie RESULTS: 07/26/21: ULTRASOUND The [...] visualized.. There is no fluid in the cul-de-sac." 08/07/2021 CT OF ABD/PEL W IVCON Abdomen/Pelvis without Cont on 08-07-2021 Abdomen/Pelvis without Cont [facility] [address] [place] [address] Abdomen/Pelvis without Cont MR#: [id number] Acct: [id number] Name: VIDA NINA Rep #: [id number] : 1950 F 70 From: Power Lopez MD PCP: Dr. Shayna Malhotra MD Status: REG CLI Study: Abdomen/Pelvis without Cont Date of Exam: 09/25 Exam# [id number] Ordering Dr: Saad Villagomez MD STUDY: CT [...] Paper guidelines (Godoy-Parrish, et al. JACR 2017; 14(8):9874-2692) suggest no imaging follow-up is necessary. ACR White Paper guidelines (Godoy-Parrish, et al. JACR 2017; 14(8):9249-7697) suggest no imaging follow-up is necessary. Consider [...] diagnosis [facility] Discussed recommendations for treatment including TLH-BSO, sentinel [...] deemed medically necessary. Reviewed prior records from [facility] and Dr. Villagomez (medical oncologist) office. Requested images from CT A/P and ultrasound to be uploaded for review. Noted elevated CA 125. Plan to proceed with surgery in September. Will need preoperative anesthesia appointment. Contact information for Jose Rafael Resendiz: nurse line [phone]; front desk worker [phone]. Documentation from my notes of previous visit [...] arrange referral to radiation treatment center in [place], [place] five minutes from where she lives. [...] the presence of Jennifer Cuevas MD. Electronically signed:CharleyFrannie Dubose, October 04, 2021 6:40 AM I agree with the Chief Complaint, ROS, and Past Histories independently gathered by the clinical life support technician and the remaining scribed note accurately describes my personal service to the patient. documented in this encounterBarney [facility]-29-[facility] Nurse Note* Moriah Aldridge RN - 10/02/2021 12:50 PM EDT Patient arrived amb A&Ox4 in [facility] for post op visit. Patient admits to pain in abd and lower back resolved since surgery. Pt denies any new concerns, today. Pt here with Marguerite, friend. Enc and support provided. Moriah Aldridge RN documented in this encounterBarney [facility] Center04-18-2022 Miscellaneous Notes* Telephone Encounter - Jeffrey Ferris - 09/21/2021 12:10 PM EDT Spoke to Nurse Bernadine from [facility] stated that the patient is in the hospital and she will call when the patient comes out. So 09/22/21 appt in this office with Dr. Cuevas has been cancelled. Jeffrey Ferris 09/21/21 documented in this encounterBarney Children'[facility] Center04-07-2022 Miscellaneous Notes* Telephone Encounter - Taniya Balderas APRN.MICHELLE - 09/10/2021 8:25 AM EDT Called [facility] left message on nurse line to call [...] to. meds that are susceptible are iv. long term can recheck urine if still + then would need to get ID involved verbal instructions per Dr julieth Balderas APRN.TELEMETRY NURSE documented in this encounterBarney Children'[facility] Center04-06-2022 Miscellaneous Notes* Telephone Encounter - Summer Turcios RN - 09/09/2021 2:50 PM EDT Franklin from [facility] returned call to this RN. Reviewed [...] confidential e-mail) Attempted to call Franklin at [facility] to review above message, no answer. Left message on voicemailto return call. Summer Turcios RN * Telephone Encounter - Summer Turcios RN - 09/09/2021 1:58 PM EDT Franklin, practical nursing faculty at [facility] called stated, "one of patient's lap sites opened a little and a scant amount of blood was noted". Franklin stated they reinforced the surgical glue/lap [...] e-mail). Summer Turcios RN documented in this encounterBarney Children'S [facility] Center04-05-2022 NoteHNO ID: [id number] Author: Sam Naidu DO Service: Gynecology Oncology [...] kg (284 lb) Height: 165.1 cm (5' 5") I/O: Date 09/07/21 0700 - 09/08/21 0659 Shift 3658-8552 5597-7408 6673-4805 24 Hour Total PO 360 360 PO 360 360 IV 7915 096 3634 Volume (mL) (ceFAZolin 3 g in D5W 100 mL (ANCEF)) 100 100 Volume (mL) (NaCl 0.9% iv infusion) 500 500 Volume (mL) (lactated ringers iv infusion) 1300 1300 Volume (mL) (lactated ringers iv infusion) 300 300 Shift Total 4192 588 4963 Urine 1000 1000 Void (ml) 1000 1000 [...] GLUC 303* CA 9.2 Recent Labs 09/07/21 2053 09/07/21 1653 09/07/21 1255 09/07/21 0704 PCGLUCOSE 306* 281* 285* 264* MEDICATIONS: Current Facility-Administered Medications Medication Dose Route Frequency Provider Last Rate Last Admin - insulin lispro pen (rapid acting) (HumaLOG KWIKPEN) SUBCUTANEOUS w MEALS Rowan Ac, DO - clonazePAM 0.5 mg tab(s) (KlonoPIN) [...] flush bag 20 mL INTRAVENOUS PRN Sam Elysia, DO - sodium chloride 0.9 % (flush) [...] VTE Prophylaxis/Anticoagulants Active VTE Risk Category Order: 09/07/211544 VTE RISK CATEGORY: SURGICAL HIGH RISK (MS,[place]) Active VTE Medication Orders: Anticoagulant AND Antiplatelet Medications (From admission, onward) Start Dose Route Frequency Last Action Ordered Stop 09/08/21 0900 enoxaparin 40 mg injection (LOVENOX) (Surgical Risk Categories) 40 mg SUBCUTANEOUS EVERY 24 HOURS Ordered 09/07/211541 -- Active VTE Prophylaxis Orders: 09/07/211544 PNEUMATIC COMPRESSION STOCKINGS (MS,OK) 09/07/211544 ACTIVITY - MOBILIZE PATIENT (MS,OK) VTE Prophylaxis: VTE prophylaxis appropriate Assessment/Plan Vida Nina is a 70 year old year old female POD#1 s/p EUA, TLH-BSO for endometrial cancer #Postoperative care - VSSAF - VTE (more content not included)...[facility]04-04-2022 Note HNO ID: [id number] Author: Hieu Raymond APRN.CRNA Service: Anesthesiology Author Type: Nurse Manager Of Manufacturing Type: Anesthesia Procedure Notes Filed: 09/07/2021 9:28 AM Note Text: ANESTHESIOLOGY PROCEDURE NOTE Airway General Information Procedure Start Time/Medication Administration: 09/07/2021 8:29 AM Patient location during procedure: OR Timeout Performed Pre-procedure: timeout performed Consent Obtained: Yes Patient identity confirmed: arm band Staffing FORMING FIXER: Hieu Raymond APRN.FORMING FIXER Performed by: ANURAG Indications and Patient Condition Preoxygenated: yes Patient position: sniffing, ramp and reverse Trendelenburg Manual In-Line Stabilization: No Difficult Mask: No Indications for airway management: anesthesia anesthesia circuit Method: modified rapid sequence Cricoid Pressure: Yes Airway Accessory: oral airway Final Airway Details Final airway type: endotracheal airway Final Endotracheal Airway: ETT Cuffed: yes Successful intubation technique: video laryngoscopy Devices used: OrangeSlyce Endotracheal tube insertion site: oral Blade: Osman [...] intubation: no Difficult airway SIGNATURE: Hieu Raymond APRN.FORMING FIXER PATIENT NAME: Vida Nina DATE: September 07, 2021 TIME: 9:25 AM CSN: [id number] Regional Hospital03-29-2022 Instructions * Patient Instructions* Naila Barrientos APRN.TELEMETRY NURSE - 09/01/2021 3:11 PM EDT PATIENT PREOPERATIVE INSTRUCTIONS Your surgeon has scheduled for your procedure at this surgery center: Dr. Cuevas has scheduled you for your procedure at this surgery center [facility]: [phone], [address] [address] Enter the hospital through the main entrance and proceed directly to the Surgery Welcome Center. Asyou enter the Surgery Welcome Center and sign in with the mid level business analyst, we may ask for your photo ID [...] If you are having surgery at the [facility], please bring your glucometer Pain Medications: You may take tylenol for pain Medications to be taken with small amount of fluid on the morning of surgery: * REFER TO MEDICATIONLISTED PROVIDED WITH YOUR AFTER VISIT SUMMARY". If you start any new medications after [...] surgery. - YOU MUST HAVE A RESPONSIBLE REMANUFACTURING TECHNICIAN TAKE YOU HOME. A PROFESSOR OF MEDICINE, CAB OR UBER REMANUFACTURING TECHNICIAN CANNOT BE MADEA RESPONSIBLE REMANUFACTURING TECHNICIAN. - We recommend that a responsible person [...] COVID-19 positive. If visitors do not follow [facility] masking guidelines, caregivers can ask [facility] to [facility] and restrict their visitation privileges. For support, contact Elizabeth at [phone] or [email or web address]. The visitor will be allowed [...] and will then instruct the visitor for strip picker directions Visitors who have tested positive [...] Faster: A Guide of Mind Body Techniques ([place], [place];[employer]: Fourth Edition) 2012 Naila Barrientos APRN.CNP 09/01/21 documented in this encounterBarney Children'S Medical Center03-29-2022 History and physical note * [...] with Dr. Cuevas. Surgery will be at [facility] Scheduled as an TBA Have you been in contact with someone with known coronavirus/Covid 19? no Have you had surgery or pre testing at [facility] in the past 3 years? no [...] Negative for: AICD/PPM, chest pain, CHF, recent AL and open heart surgery. GI: Positive for: abdominal pain Negative for: nausea and vomiting. : No history of dysuria, frequency or incontinence, stones or chronic kidney disease. No difficulty urinating, nocturia > 1 time per night or hematuria. 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 [...] 97 Temp 97.5 Resp 18 Ht 5' 5" (1.65m) Wt 284 lb (128.8kg) SpO2 97% [...] or any previous visit (from the past 15891 hour(s)). Assessment No problem-specific Assessment & Plan [...] the following medical conditions which may affect poonrima-operative course Diabetes - last aic 7.0 insulin and weekly injectables HTN - slightly elevated. Treated with oral medications. No investment officer Hyperlipidemia- treated with a statin Pertinent cardiac [...] Initiated: Ordered by surgeon- none Ordered by general machinist - cbc, T*S, con abo Instructions Given to Patient: Instructions located in the after visit summary. Patient given verbal and written preop instructions and voices comprehension and compliance. SIGNATURE: Naila Barrientos APRN.CNP PATIENT NAME: Vida Nina DATE: September 01, 2021 TIME: 2:53 PM PAGER/CONTACT #: documented in this encounterBarney Children'S Medical Center03-18-2022 NoteHNO ID: [id number] Author: Jennifer Cuevas MD Service: ? Author Type: Physician Type: Progress Notes Filed: 08/26/2021 1:21 PM Note Text: Gynecologic Oncology [facility] General Consult Date of service: 08/21/2021 PCP: [...] many years since she has seen a pen tender, maybe > 10 years. 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 Spiritual Minister History ? 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 Age at Menarche: ? Age at First : ? Age at Menopause: ? Spiritual Minister History Comments: ? Sexual Activity: Not Asked; [...] 1 capsule by mouth (more content not included)...[facility] 07-29-2021 NoteHNO ID: [id number] Author: Krunal Erazo MD Service: ? Author [...] many years since she has seen a pen tender, maybe > 10 years. 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 Spiritual Minister History LMP: Postmenopausal Age at Menarche: Age at First : Age at Menopause: Spiritual Minister History Comments: Sexual Activity: Not Asked; No [...] external genitalia atrophic, normal Bartholin's glands, urethra, Wallula's glands, no vulvar lesions, no cervical lesions, good vaginal support, normal appearing perineal body and perianal region, scant (more content not included)...[facility] Diagnosis Pre-op testing- Primary Preoperative examination, unspecified Endometrial cancer (HCC) Malignant neoplasm of corpus uteri, except isthmus Mixed hyperlipidemia 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, with long-term current use of insulin (HCC) Primary hypertension Unspecified essential hypertension Endometrial cancer (HCC) Malignant neoplasm of corpus uteri, except isthmus documented in this encounter [facility]* Diagnosis Onset Date Resolution Status Uterine mass acute Endometrial adenocarcinoma a cute Debility acute Pulmonary embolism acute [facility] Work Phone: Evaluation note* Diagnosis Onset Date Resolution Status Uterine mass acute Endometrial adenocarcinoma a cute Debility acute Pulmonary embolism acute Debility acute Elevated troponin I level ac mark Lactic acidosis acute DM2 (diabetes mellitus, type 2) chronic [facility] Work Phone: Evaluation note* Diagnosis Endometrial cancer (HCC)- Primary Malignant neoplasm of corpus uteri, except isthmus documented in this encounter [facility]* Diagnosis Onset Date Resolution Status Debility acute Pulmonary embolism acute Debility acute DM2 (diabetes mellitus, type 2) chronic Elevated troponin I level re solved Lactic acidosis resolved [facility] Work Phone: Evaluation noteNo assessment information available [facility] Work Phone: Evaluation note* Diagnosis Onset Date Resolution Status Debility acute Endometrial adenocarcinoma a cute Former smoker acute History of seizures acute Pulmonary embolism acute Vitamin D deficiency acute Bipolar disorder chronic DM2 (diabetes mellitus, type 2) chronic Type 1 diabetes mellitus chr onic [facility] Work Phone: Evaluation note* Diagnosis Onset Date Resolution Status Debility acute Vitamin D deficiency acute Bipolar disorder chronic Depression chronic DM2 (diabetes mellitus, type 2) chronic [facility] Work Phone: [facility] Work Phone: Hospital Discharge instructions Additional [...] care physician for further outpatient evaluation and management.[facility] Work Phone: Summary Purpose Family [...] FoundDocuments on File Type Date Recorded Patient Chicken And Fish Cleaner Expl 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 Advance Directive(s) 09/07/2021 6:14 AM Advance Directive Response Recorded Date/ Time Living Will No September 20, 2021 7:30am Power of Dental Scheduling Coordinator No September 20 7:30am Advance Directive Response Recorded Date/ Time Living Will No September 20, 2021 12:38pm Power of Dental Scheduling Coordinator No September 20 12:38pm Advance Directive Response Recorded Date/ Time Name of Medical Power of Dental Scheduling Coordinator TODD November 22, 2021 1:03pm Living Will Yes November 22, 2021 1:03pm Power of Dental Scheduling Coordinator Yes November 22 1:03pm Advance Directive Response Recorded Date/ Time Name of Medical Power of Dental Scheduling Coordinator Todd Nina November 22, 2021 5:55pm Living Will No November 22, 2021 5:55pm Power of Dental Scheduling Coordinator Yes November 22 5:55pm Advance Directive Response Recorded Date/ Time Living Will No April 13 10:27am Power of Dental Scheduling Coordinator Yes April 13, 2022 10:27am Advance Directive Response Recorded Date/ Time Living Will No April 13 11:27am Power of Dental Scheduling Coordinator Yes April 13, 2022 11:27am Advance Directive Response Recorded Date/ Time Living Will No January 09, 2023 5:18pm Power of Dental Scheduling Coordinator No January 09 5:18pm Advance Directive Response Recorded Date/ Time Living Will No January 09, 2023 4:18pm Power of Dental Scheduling Coordinator No January 09 4:18pm Advance Directive Response Recorded Date/ Time Do you have a Healthcare Power of Dental Scheduling Coordinator? Yes October 09, 2024 5:45pm Advance Directive Response Recorded Date/ Time Do you have a Healthcare Power of Dental Scheduling Coordinator? No October 09, 2024 11:07pm Health Concerns Infection Onset Date Last Indicated Resolved Time COVID-19 Rule-Out 09/07/2021 09/07/2021 Chief Complaint and Reason for Visit Chief Complaint ASSISTED LABOWRK ASSISTED LABWORK ASSISTED LABWORK VAGINAL BLEEDING NEW-CERVICAL MASS MED ONC CERVICAL MASS 2WKS NO LABS REVIEW CT/PATH FRO [facility] PE, FAILURE TO THRIVE PE, FAILURE TO THRIVE Reason for Visit Uterine mass Endometrial adenocarcinoma Debility Pulmonary embolism Chief Complaint ASSISTED LABOWRK ASSISTED LABWORK ASSISTED LABWORK VAGINAL BLEEDING NEW-CERVICAL MASS MED ONC CERVICAL MASS 2WKS NO LABS REVIEW CT/PATH FRO [facility] PE, FAILURE TO THRIVE PE, FAILURE TO THRIVE PE, FAILURE TO THRIVE PE, FAILURE TO THRIVE Reason for Visit Uterine mass Endometrial adenocarcinoma Debility Pulmonary embolism Chief Complaint ASSISTED LABWORK ASSISTED LABWORK VAGINAL BLEEDING NEW-CERVICAL MASS MED ONC CERVICAL MASS 2WKS NO LABS REVIEW CT/PATH FRO [facility] ASSISTED LABWORK PE, FAILURE TO THRIVE PE, FAILURE TO THRIVE PE, FAILURE TO THRIVE PE, FAILURE TO THRIVE ASSISTED LABWORK Reason for Visit Uterine mass Endometrial adenocarcinoma Debility Pulmonary embolism Chief Complaint VAGINAL BLEEDING NEW-CERVICAL MASS MED ONC CERVICAL MASS 2WKS NO LABS REVIEW CT/PATH FRO [facility] ASSISTED LABWORK PE, FAILURE TO THRIVE PE, FAILURE TO THRIVE PE, FAILURE TO THRIVE PE, FAILURE TO THRIVE ASSISTED LABWORK ASSISTED LABWORK Reason for Visit Uterine mass Endometrial adenocarcinoma Debility Pulmonary embolism Chief Complaint VAGINAL BLEEDING NEW-CERVICAL MASS MED ONC CERVICAL MASS 2WKS NO LABS REVIEW CT/PATH FRO [facility] ASSISTED LABWORK PE, FAILURE TO THRIVE PE, FAILURE TO THRIVE PE, FAILURE TO THRIVE PE, FAILURE TO THRIVE ASSISTED LABWORK ASSISTED LABWORK DEBILITY/KAYLA Reason for Visit Uterine mass Endometrial adenocarcinoma Debility Pulmonary embolism Chief Complaint NEW-CERVICAL MASS MED ONC CERVICAL MASS 2WKS NO LABS REVIEW CT/PATH FRO [facility] ASSISTED LABWORK PE, FAILURE TO THRIVE PE, FAILURE TO THRIVE PE, FAILURE TO THRIVE PE, FAILURE TO THRIVE ASSISTED LABWORK ASSISTED LABWORK DEBILITY/KAYLA DEBILITY/KAYLA DEBILITY/KAYLA DEBILITY/KAYLA Reason for Visit Uterine mass Endometrial adenocarcinoma Debility Pulmonary embolism Debility Elevated troponin I level Lactic acidosis DM2 (diabetes mellitus, type 2) Chief Complaint ASSISTED LABWORK PE, FAILURE TO THRIVE PE, FAILURE TO THRIVE PE, FAILURE TO THRIVE PE, FAILURE TO THRIVE ASSISTED LABWORK ASSISTED LABWORK DEBILITY/KAYLA DEBILITY/KAYLA DEBILITY/KAYLA DEBILITY/KAYLA DEBILITY/KAYLA ASSISTED LABWORK ASSISTED LABWORK ASSISTED LAB WORK Reason for Visit Debility Pulmonary embolism Debility DM2 (diabetes mellitus, type 2) Elevated troponin I level Lactic acidosis Chief Complaint ASSISTED LABWORK ASSISTED LAB WORK Chief Complaint ASSISTED LAB WOR K 1 Y FU ASSISTED LAB WORK Reason for Visit Debility Endometrial adenocarcinoma Former smoker History of seizures Pulmonary embolism Vitamin D deficiency Bipolar disorder DM2 (diabetes mellitus, type 2) Type 1 diabetes mellitus Chief Complaint ASSISTED LAB WOR K 1 Y FU ASSISTED LAB WORK ASSISTED LAB WORK Reason for Visit Debility Endometrial adenocarcinoma Former smoker History of seizures Pulmonary embolism Vitamin D deficiency Bipolar disorder DM2 (diabetes mellitus, type 2) Type 1 diabetes mellitus Chief Complaint 1 Y FU ASSISTED LAB WORK ASSISTED LAB WORK ASSISTED LABWORK Reason for Visit Debility Endometrial adenocarcinoma Former smoker History of seizures Pulmonary embolism Vitamin D deficiency Bipolar disorder DM2 (diabetes mellitus, type 2) Type 1 diabetes mellitus Chief Complaint ASSISTED LAB WOR K 6 M FU gen illness Reason for Visit Debility Vitamin D deficiency Bipolar disorder Depression DM2 (diabetes mellitus, type 2) Chief Complaint ASSISTED LABWORK ASSISTED LABWORK Chief Complaint Admit Date LT Ankle Pain July 04, 2024 1 2:57pm ASSISTED LAB WORK July 09, 2024 4:00am ACUTE CYSTITIS, NEUROPATHIC PAIN OF LEFT FOOT AND October 09, 2024 9:56pm Reason for Visit Admit Date Debility July 04, 2024 1 2:57pm Obesity July 04, 2024 1 2:57pm Lymphedema July 04, 2024 1 2:57pm Type 1 diabetes mellitus July 04, 2 025 12:57pm Pain of left heel July [...] 9: 56pm UTI (urinary tract infection) October 09 025 9:56pm DM2 (diabetes mellitus, type 2) October 09, 2024 9:56pm Chief Complaint Admit Date LT Ankle Pain July 04, 2024 1 2:57pm ASSISTED LAB WORK July 09, 2024 4:00am ACUTE CYSTITIS, NEUROPATHIC PAIN OF LEFT FOOT AND October 09, 2024 9:56pm ACUTE CYSTITIS, NEUROPATHIC PAIN OF LEFT FOOT AND October 10, 2024 7:39am Additional Source Comments INFORMATION SOURCE (unrecogn ized section and content) DATE CREATED AUTHOR 08/31/2021 [facility] DATE CREATED AUTHOR AUTHOR'S ORGANIZ ATION 12/01/2021 [facility] DATE CREATED AUTHOR AUTHOR'S ORGANIZ ATION 11/23/2024 [facility] Source Comments (unrecognize d section and content) In the event this informatio n is protected by the Federal Confidentiality of Alcohol and Drug Abuse Patient Records regulations: The Federal rules restrict any use of the information to criminally investigate or prosecute any alcohol or drug abuse patient.[facility] CenterIn the event this information is protected by the Federal Confidentiality of Alcohol and Drug Abuse Patient Records regulations: The Federal rules restrict any use of the information to criminally investigate or prosecute any alcohol or drug abuse patient.[facility] CenterIn the event this information is protected by the Federal Confidentiality of Alcohol and Drug Abuse Patient Records regulations: The Federal rules restrict any use of the information to criminally investigate or prosecute any alcohol or drug abuse patient.[facility] CenterIn the event this information is protected by the Federal Confidentiality of Alcohol and Drug Abuse Patient Records regulations: The Federal rules restrict any use of the information to criminally investigate or prosecute any alcohol or drug abuse patient.[facility] CenterIn the event this information is protected by the Federal Confidentiality of Alcohol and Drug Abuse Patient Records regulations: The Federal rules restrict any use of the information to criminally investigate or prosecute any alcohol or drug abuse patient.[facility] Reason for Visit (unrecogniz ed [...] Shayna Malhotra MD Primary Care Provider Active [facility] Attending Provider Acti ve Team Status: Inactive [...] BE BASED ON THE PRIMARY CLINICAL RECORDS. [facility] [employer] [facility]. provides no warranty or guarantee of the accuracy or completeness of information in this document.
[2024-11-26 09:07] LABS: Anion Gap 12 (5-15); BUN 18 mg/dL (4-19); BUN/Creat Ratio 19.5 RATIO (10-20); Calcium,Total 9.3 mg/dL (7.6-11.0); Carbon Dioxide 22.9 mmol/L (21.0-32.0); Chloride 106 mmol/L (98-108); Creatinine, Serum 0.95 mg/dL (0.70-1.20); EST Glomerular Filtration Rate 64 (>60); Glucose 89 mg/dL (70-99); Magnesium 2.2 mg/dL (1.5-2.2); Potassium 4.5 mmol/L (3.3-5.1); Sodium Level 140 mmol/L (133-145)
== END ==
LOC: OLS.SW 05:00
PROVIDERS: PCP Internal Medicine; Visit Provider Internal Medicine
DX: E11.40 Type 2 diabetes mellitus with diabetic neuropathy, unspecified (principal)
CPT/HCPCS: 36415; 80048; 83735

== ENCOUNTER → 2024-12-04 | Outpatient (REF) | payer MEDICARE, MEDICAID, SELFPAY ==
--- OUTSIDE RECORDS SUMMARY | 2024-12-04 05:04 | XMS RPT_ITS | CCD ---
Author Organization [facility] Care Team Providers Care Automobile Detailer Name Role Phone Sena Cox NP Unavailable Johnny Richardson Unavailable Unavailable Unavailable Primary Care Provider [facility] Shayna Malhotra Primary Care Provider [...] Dr. Harjeet Gr Attending Provider Dr. Shayna Malhtora Primary Care Provider Dr. Tanner Rodriguez Attending Provider Dr. Marjorie Gutiérrez Referring Provider Dr. Shayna Malhotra Primary Care Provider Dr. Shayna Malhotra Attending Provider Dr. Shayna Malhotra Primary Care Provider Dr. Shayna Malhotra Attending Provider Dr. Shayna Malhotra Primary Care Provider Dr. Shayna Malhotra Attending Provider [phone] Marya LEAL, Dr. Corral Primary Care Provider Marya LEAL, Dr. Corral Attending Provider Marya LEAL, Shayna Attending Provider Unavailabl e Marya LEAL, Shayna Referring Provider Unavailabl e Dylan LEAL, Dany Emergency Provider [phone] de Armani MATHIAS, Dr. Canas Admit Provider Unavail able Hernandez DO, Dr. Canas Attending Provider Unav ailable Hernandez DO, Dr. Canas Other Provider Unavail able Camilo LEAL, Dr. Santillan Attending Provider Camilo LEAL, Dr. Santillan Other Provider Marya OLS, Shayna Referring Unavailable Marya OLS, Shayna Attending Unavailable Marya, Shayna Primary Care Unavailable Marya OLS, Shayna Attending Unavailable Marya, [...] Unavailable Lele, Shea Attending Unavailable Marya, Shayna Primary Care Unavailable Gudla OLS, Malathi Attending Unavailable Marya, Shayna Primary Care Unavailable Gudla OLS, Malathi Attending Unavailable Marya, Shayna Primary Care Unavailable Gudla OLS, Malathi Attending Unavailable Marya, Shayna Primary Care Unavailable Gudla OLS, Malathi Attending Unavailable Marya OLS, Shayna Attending Unavailable Marya, Shayna Primary Care Unavailable Marya, Shayna Primary Care Unavailable Missael Hernandez Consulting Unavailable Tyrell Page Attending Unavailable Missael Hernandez Admitting Unavailable Shayna Malhotra Primary Care Unavailable Malathi Hyde Attending Unavailable Shayna Sanchez Attending Unavailable Shayna Malhotra Primary Care Unavailable Shayna Sanchez Referring Unavailable Shayna Sanchez Attending Unavailable MaryaShayna Primary Care Unavailable MaryaShayna Primary Care Unavailable Shayna Malhotra Attending Unavailable Allergies Allergy Classification Reported Allergen(s) Allergy Type Date of Onset Reaction(s) Facility (20 sources) Ciprofloxacin Drug Allergy 08-12-19 06 Shortness of Breath, Anaphylaxis [facility] (20 sources) Contrast media; Translations: [red dye] Drug Allergy 02-10-20 16 [facility] (5 sources) Fish Drug Allergy 02-10-20 16 [facility] (20 sources) metFORMIN Drug Allergy 11-21-19 17 Diarrhea, GI Upset, Vomiting [facility] (20 sources) paliperidone Drug Allergy 11-21-19 17 Rash [facility] (14 sources) Penicillins Drug Allergy 07-15-19 06 [facility] (20 sources) Shellfish; Translations: [shellfish derived] Drug Intolerance 02-29-20 19 Diarrhea, Vomiting [facility] (15 sources) Sulfonamides (Antibiotic) Drug Allergy 07-15-19 06 [facility] (15 sources) Iodinated Contrast Media Drug Allergy 02-29-20 19 [facility] (4 sources) Mold Extract Drug Allergy 09-08-19 22 [facility] (19 sources) Ciprofloxacin; Translations: [ciprofloxacin HCl] Drug Allergy 08-12-19 22 Anaphylaxis [facility] (18 sources) red (food color); Translations: [red (food color)] Allergy to substance 09-21-19 22 [facility] (1 source) Penicillins Drug Allergy 07-15-19 06 [facility] (8 sources) Penicillins Allergy to substance 11-23-19 22 RASH AND ITCHING [facility] (8 sources) Sulfonamides (Antibiotic) Allergy to substance 11-23-19 RASH AND ITCHING [facility] (8 sources) Triiodobenzoic Acids Allergy to substance 11-23-19 22 [facility] (1 source) Ciprofloxacin Drug Allergy 10-10-19 [facility] (1 source) metFORMIN Drug Allergy 10-10-19 [facility] (1 source) paliperidone Drug Allergy 10-10-19 [facility] (1 source) Penicillins Drug allergy (disorder) 10-10-19 [facility] (1 source) Sulfonamides (Antibiotic) Drug allergy (disorder) 10-10-19 [facility] (1 source) Iodinated Contrast Media Drug allergy (disorder) 10-10-19 [facility] Medications Current Medications Medication Drug Class(es) Dates Sig (Normalized) Sig (Original) acetaminophen 325 mg oral tablet (20 sources) Start: 09-07-2021 End: 09-21-2021 take 2 tablets by mouth every six hours acetaminophen (TYLENOL) 325 mg tablet Take 2 tablets by mouth every 6 hours for 14 days. 112 tablet 0 09/07/2021 09/21/2021 Active Start: 07-30-2021 take 1 tablet by [facility] every four hours as needed Acetaminophen (Tylenol) 325 mg tablet Active 325 MG PO EVERY 4 HOURS NEEDED July 30, 2021 4:00pm Start: 07-30-2021 take 1 tablet by mouth once Ac etaminophen (Tylenol) 325 mg tablet Active 325 MG PO ONCE July 30, 2021 4:00pm Start: 07-30-2021 take 2 tablets by [facility] every four hours as needed for pain Acetaminophen (Tylenol) 325 mg tablet Active 650 mg PO EVERY 4 HOURS NEEDED as needed for Pain, fever July 30, 2021 1:00am Comment on above: Take 650 mg by mouth every 4 hours as needed. Take 2 tablets by [facility] every 6 hours for 14 days. aspirin [...] D2) 1,250 mcg (50,000 unit) Capsule Active 55236 U PO Q14D September 20, 2021 12:00am Take every 2 weeks on Mondays Start: 09-20-2021 take 55359 [IU] by m out every other week Ergocalciferol (Vitamin D2) Active 84285 UNIT PO Q14D September 19, 2021 11:00pm Take every 2 weeks on Mondays Start: 09-08-2017 End: 03-21-2020 Ergocalciferol (Vitamin D2) 50,000 unit capsule Discontinued 61630 U PO EVERY MONTH September 08, 2017 12:00am March 21, 2020 2:54pm Start: 11-15-2014 End: 09-01-2021 take 1 capsule by mouth every week ergocalciferol, vitamin D2, (VITAMIN D) 50,000 unit capsule Take 1 capsule by mouth once each week. 4 capsule 12 11/15/2014 09/01/2021 Discontinued Comment on above: Take 1 capsule by [facility] once each week. glucose 0.4 mg/mg oral [...] Comment on above: Take 1 tablet by [facility] every 6 hours for 14 days. [...] pen Discontinued 18 U SC AT BEDTIME 6 September 12, 2017 1:53pm March 21, 2020 [...] SOPN Use 18 units daily. INSULIN GLARGINE [id number] Sena Cox NP Comment on above: Inject [...] Comment on above: Take 1 capsule by [facility] twice daily with meals for 10 doses. [...] Comment on above: Take 2 tablets by [facility] daily at bedtime. triamcinolone acetonide 1 mg/ml [...] on above: Take 1 capsule by [facility] once each week. Take 1 capsule by [facility] twice a week. (ONE CAPSULE) FOR VITAMIN D DEFICIENCY Take 1 capsule by mo [facility] once each week. (ONE CAPSULE) FOR VITAMIN [...] Comment on above: Take 1 tablet by [facility] three times daily as needed. fluconazole [...] BLOOD (3 sources) Start: 10-26-2016 End: 01-26-2025 [facility] STRP Check BG 4-5 times daily GLUCOSE BLOOD [id number] Sena Cox CLINICAL RESOURCE COORDINATOR 3 ml insulin detemir 100 unt/ml pen [...] (3 sources) Start: 10-26-2016 [facility] Use to check blood glucose up to 4 times daily. LANCETS [id number] Sena Cox CLINICAL RESOURCE COORDINATOR mag hydrox/aluminum hyd/simeth (ANTACID SUSPENSION ORAL) (5 [...] Active Comment on above: twice daily. nystatin 767318 unt/ml oral suspension (15 sources) Polyene Antifungal [...] November 23, 2021 11:00pm polyethylene glycol 3350 17741 mg powder for oral solution (9 sources) [...] shows localized disease. 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, [address] Calcium [Mass/Vol] 9.3 mg/dL Normal 7.6-11.0 [facility] Comment on above: Order Comment: 134 Performed By: #### L 500.4050, L506.1000, L100.0100, L501.9985 #### [facility] [address] [place], [address] Chloride [Moles/Vol] 106 mmol/L Normal 98-108 [facility] Comment on above: Order Comment: 134 Performed By: #### L 500.4050, L506.1000, L100.0100, L501.9985 #### [facility] [address] [place], [address] CO2 [Moles/Vol] 22.9 mmol/L Normal 21.0-32.0 [facility] Comment on above: Order Comment: 134 Performed By: #### L 500.4050, L506.1000, L100.0100, L501.9985 #### [facility] [address] [place], [address] Creatinine [Mass/Vol] 0.95 mg/dL Normal 0.70-1.20 [facility] Comment on above: Order Comment: 134 Performed By: #### L 500.4050, L506.1000, L100.0100, L501.9985 #### [facility] [address] [place], [address] GAP 12 Normal 5-15 [facility] Comment on above: Order Comment: 134 Performed By: #### L 500.4050, L506.1000, L100.0100, L501.9985 #### [facility] [address] [place], [address] GFR/1.73 sq M.predicted among non-blacks MDRD (S/P/Bld) [Vol rate/Area] 64 mL/min/{1.73_m2} Normal >60 [facility] Comment on above: Order Comment: 134 Result Comment: mL/m in/1.73m2 CKD-EPI Creatinine Equation (2020) Performed By: #### L 500.4050, L506.1000, L100.0100, L501.9985 #### [facility] [address] [place], [address] Glucose [Mass/Vol] 89 mg/dL Normal 70-99 [facility] Comment on above: Order Comment: 134 Performed By: #### L 500.4050, L506.1000, L100.0100, L501.9985 #### [facility] [address] [place], [address] Potassium [Moles/Vol] 4.5 mmol/L Normal 3.3-5.1 [facility] Comment on above: Order Comment: 134 Performed By: #### L 500.4050, L506.1000, L100.0100, L501.9985 #### [facility] [address] [place], [address] Sodium [Moles/Vol] 140 mmol/L Normal 133-145 [facility] Comment on above: Order Comment: 134 Performed By: #### L 500.4050, L506.1000, L100.0100, L501.9985 #### [facility] [address] [place], [address] Urea nitrogen [Mass/Vol] 18 mg/dL Normal 4-19 [facility] Comment on above: Order Comment: 134 Performed By: #### L 500.4050, L506.1000, L100.0100, L501.9985 #### [facility] [address] [place], [address] Magnesiumon 11-26-2024 Magnesium [Mass/Vol] 2.2 mg/dL Normal 1.5-2.2 [facility] Comment on above: Order Comment: 134 Performed By: #### L 500.4050, L506.1000, L100.0100, L501.9985 #### [facility] [address] [place], [address] Basic Metabolic Profile (BMP )on 11-07-2024 BUN/CRE 19.5 RATIO Normal 10-20 [facility] Comment on above: Order Comment: 134 Performed By: #### L 500.4050, L506.1000, L100.0100, L501.9985 #### [facility] [address] [place], [address] Calcium [Mass/Vol] 9.0 mg/dL Normal 7.6-11.0 [facility] Comment on above: Order Comment: 134 Performed By: #### L 500.4050, L506.1000, L100.0100, L501.9985 #### [facility] [address] [place], [address] Chloride [Moles/Vol] 103 mmol/L Normal 98-108 [facility] Comment on above: Order Comment: 134 Performed By: #### L 500.4050, L506.1000, L100.0100, L501.9985 #### [facility] [address] [place], [address] CO2 [Moles/Vol] 25.5 mmol/L Normal 21.0-32.0 [facility] Comment on above: Order Comment: 134 Performed By: #### L 500.4050, L506.1000, L100.0100, L501.9985 #### [facility] [address] [place], [address] Creatinine [Mass/Vol] 0.82 mg/dL Normal 0.70-1.20 [facility] Comment on above: Order Comment: 134 Performed By: #### L 500.4050, L506.1000, L100.0100, L501.9985 #### [facility] [address] [place], [address] GAP 10 Normal 5-15 [facility] Comment on above: Order Comment: 134 Performed By: #### L 500.4050, L506.1000, L100.0100, L501.9985 #### [facility] [address] [place], [address] GFR/1.73 sq M.predicted among non-blacks MDRD (S/P/Bld) [Vol rate/Area] 76 mL/min/{1.73_m2} Normal >60 [facility] Comment on above: Order Comment: 134 Result Comment: mL/m in/1.73m2 CKD-EPI Creatinine Equation (2020) Performed By: #### L 500.4050, L506.1000, L100.0100, L501.9985 #### [facility] [address] [place], [address] Glucose [Mass/Vol] 79 mg/dL Normal 70-99 [facility] Comment on above: Order Comment: 134 Performed By: #### L 500.4050, L506.1000, L100.0100, L501.9985 #### [facility] [address] [place], [address] Potassium [Moles/Vol] 4.1 mmol/L Normal 3.3-5.1 [facility] Comment on above: Order Comment: 134 Performed By: #### L 500.4050, L506.1000, L100.0100, L501.9985 #### [facility] [address] [place], [address] Sodium [Moles/Vol] 139 mmol/L Normal 133-145 [facility] Comment on above: Order Comment: 134 Performed By: #### L 500.4050, L506.1000, L100.0100, L501.9985 #### [facility] [address] [place], [address] Urea nitrogen [Mass/Vol] 16 mg/dL Normal 4-19 [facility] Comment on above: Order Comment: 134 Performed By: #### L 500.4050, L506.1000, L100.0100, L501.9985 #### [facility] [address] [place], [address] CBC W/Diff, Automatedon 06-0 -2024 Absolute Lymph 1.04 X10 3/uL Normal 0.83-4.51 [facility] Comment on above: Order Comment: 134 Performed By: #### L 500.4050, L506.1000, L100.0100, L501.9985 #### [facility] [address] [place], [address] Absolute Neut 2.2 X10 3/uL Normal 2.0-7.7 [facility] Comment on above: Order Comment: 134 Performed By: #### L 500.4050, L506.1000, L100.0100, L501.9985 #### [facility] [address] [place], [address] Basophils/100 WBC (Bld) 0.8 % Normal 0-1 [facility] Comment on above: Order Comment: 134 Performed By: #### L 500.4050, L506.1000, L100.0100, L501.9985 #### [facility] [address] [place], [address] Eosinophils/100 WBC (Bld) 3.2 % Normal 0-5 [facility] Comment on above: Order Comment: 134 Performed By: #### L 500.4050, L506.1000, L100.0100, L501.9985 #### [facility] [address] [place], [address] Erythrocyte distribution width (RBC) [Ratio] 15.9 % High 11.6-14.6 [facility] Comment on above: Order Comment: 134 Performed By: #### L 500.4050, L506.1000, L100.0100, L501.9985 #### [facility] [address] [place], [address] Hematocrit (Bld) [Volume fraction] 34.4 % Low 37-47 [facility] Comment on above: Order Comment: 134 Performed By: #### L 500.4050, L506.1000, L100.0100, L501.9985 #### [facility] [address] [place], [address] Hemoglobin (Bld) [Mass/Vol] 11.1 g/dL Low 12.0-15.0 [facility] Comment on above: Order Comment: 134 Performed By: #### L 500.4050, L506.1000, L100.0100, L501.9985 #### [facility] [address] [place], [address] IG% 0.500 Normal 0.0-0.9 [facility] Comment on above: Order Comment: 134 Result Comment: IG% - Immature Granulocytes (promyelocytes, myelocytes and metamyelocytes) > 1% indicates that a LEFT SHIFT is Present. Performed By: #### L 500.4050, L506.1000, L100.0100, L501.9985 #### [facility] [address] [place], [address] Lymphocytes/100 WBC (Bld) 27.4 % Normal 19-41 [facility] Comment on above: Order Comment: 134 Performed By: #### L 500.4050, L506.1000, L100.0100, L501.9985 #### [facility] [address] [place], [address] MCH (RBC) [Entitic mass] 28.3 pg Normal 27.0-32.0 [facility] Comment on above: Order Comment: 134 Performed By: #### L 500.4050, L506.1000, L100.0100, L501.9985 #### [facility] [address] [place], [address] MCHC (RBC) [Mass/Vol] 32.3 g/dL Normal 32-36 [facility] Comment on above: Order Comment: 134 Performed By: #### L 500.4050, L506.1000, L100.0100, L501.9985 #### [facility] [address] [place], [address] MCV (RBC) [Entitic vol] 87.8 fL Normal 81-99 [facility] Comment on above: Order Comment: 134 Performed By: #### L 500.4050, L506.1000, L100.0100, L501.9985 #### [facility] [address] [place], [address] Monocytes/100 WBC (Bld) 9.7 % Normal 0-10 [facility] Comment on above: Order Comment: 134 Performed By: #### L 500.4050, L506.1000, L100.0100, L501.9985 #### [facility] [address] [place], [address] Neutrophils/100 WBC (Bld) 58.4 % Normal 47-70 [facility] Comment on above: Order Comment: 134 Performed By: #### L 500.4050, L506.1000, L100.0100, L501.9985 #### [facility] [address] [place], [address] Nucleated RBC (Bld) [#/Vol] 0 10*3/uL Normal 0-5 [facility] Comment on above: Order Comment: 134 Performed By: #### L 500.4050, L506.1000, L100.0100, L501.9985 #### [facility] [address] [place], [address] Platelet mean volume (Bld) [Entitic vol] 10.7 fL Normal 6.2-12.0 [facility] Comment on above: Order Comment: 134 Performed By: #### L 500.4050, L506.1000, L100.0100, L501.9985 #### [facility] [address] [place], [address] Platelets (Bld) [#/Vol] 122 10*3/uL Low 150-450 [facility] Comment on above: Order Comment: 134 Performed By: #### L 500.4050, L506.1000, L100.0100, L501.9985 #### [facility] [address] [place], [address] RBC (Bld) [#/Vol] 3.92 10*6/uL Low 4.2-5.4 [facility] Comment on above: Order Comment: 134 Performed By: #### L 500.4050, L506.1000, L100.0100, L501.9985 #### [facility] [address] [place], [address] RDW SD 51.3 fl High 35.1-43.9 [facility] Comment on above: Order Comment: 134 Performed By: #### L 500.4050, L506.1000, L100.0100, L501.9985 #### [facility] [address] [place], [address] WBC (Bld) [#/Vol] 3.8 10*3/uL Low 4.4-11.0 [facility] Comment on above: Order Comment: 134 Performed By: #### L 500.4050, L506.1000, L100.0100, L501.9985 #### [facility] [address] [place], [address] Magnesiumon 11-07-2024 Magnesium [Mass/Vol] 2.1 mg/dL Normal 1.5-2.2 [facility] Comment on above: Order Comment: 134 Performed By: #### L 500.4050, L506.1000, L100.0100, L501.9985 #### [facility] [address] [place], [address] Basic Metabolic Profile (BMP )on 11-06-2024 BUN Normal 4-19 [facility] Comment on above: Order Comment: 134 Result Comment: QNS UTO X1 Performed By: #### L 506.1000, L100.0100, L501.9985, L500.4050 #### [facility] [address] [place], [address] BUN/CRE Normal 10-20 [facility] Comment on above: Order Comment: 134 Result Comment: QNS UTO X1 Performed By: #### L 506.1000, L100.0100, L501.9985, L500.4050 #### [facility] [address] [place], [address] Calcium Normal 7.6-11.0 [facility] Comment on above: Order Comment: 134 Result Comment: QNS UTO X1 Performed By: #### L 506.1000, L100.0100, L501.9985, L500.4050 #### [facility] [address] [place], [address] CL Normal 98-108 [facility] Comment on above: Order Comment: 134 Result Comment: QNS UTO X1 Performed By: #### L 506.1000, L100.0100, L501.9985, L500.4050 #### [facility] [address] [place], [address] CO2 Normal 21.0-32.0 [facility] Comment on above: Order Comment: 134 Result Comment: QNS UTO X1 Performed By: #### L 506.1000, L100.0100, L501.9985, L500.4050 #### [facility] [address] [place], [address] CREAT,SERUM Normal 0.70-1.20 [facility] Comment on above: Order Comment: 134 Result Comment: QNS UTO X1 Performed By: #### L 506.1000, L100.0100, L501.9985, L500.4050 #### [facility] [address] [place], [address] eGFR Normal >60 [facility] Comment on above: Order Comment: 134 Result Comment: QNS UTO X1 Performed By: #### L 506.1000, L100.0100, L501.9985, L500.4050 #### [facility] [address] [place], [address] GAP Normal 5-15 [facility] Comment on above: Order Comment: 134 Result Comment: QNS UTO X1 Performed By: #### L 506.1000, L100.0100, L501.9985, L500.4050 #### [facility] [address] [place], [address] GLU Normal 70-99 [facility] Comment on above: Order Comment: 134 Result Comment: QNS UTO X1 Performed By: #### L 506.1000, L100.0100, L501.9985, L500.4050 #### [facility] [address] [place], [address] Potassium Normal 3.3-5.1 [facility] Comment on above: Order Comment: 134 Result Comment: QNS UTO X1 Performed By: #### L 506.1000, L100.0100, L501.9985, L500.4050 #### [facility] [address] [place], [address] Basic Metabolic Profile (BMP) Normal 133-145 [facility] Comment on above: Order Comment: 134 Result Comment: QNS UTO X1 Performed By: #### L 506.1000, L100.0100, L501.9985, L500.4050 #### [facility] [address] [place], [address] CBC W/Diff, Automatedon 06-0 3-2024 Absolute Neut Normal 2.0-7.7 [facility] Comment on above: Order Comment: 134 Result Comment: QNS UTO X1 Performed By: #### L 506.1000, L100.0100, L501.9985, L500.4050 #### [facility] [address] [place], [address] HCT Normal 37-47 [facility] Comment on above: Order Comment: 134 Result Comment: QNS UTO X1 Performed By: #### L 506.1000, L100.0100, L501.9985, L500.4050 #### [facility] [address] [place], [address] HGB Normal 12.0-15.0 [facility] Comment on above: Order Comment: 134 Result Comment: QNS UTO X1 Performed By: #### L 506.1000, L100.0100, L501.9985, L500.4050 #### [facility] [address] [place], [address] MCH Normal 27.0-32.0 [facility] Comment on above: Order Comment: 134 Result Comment: QNS UTO X1 Performed By: #### L 506.1000, L100.0100, L501.9985, L500.4050 #### [facility] [address] [place], [address] MCHC Normal 32-36 [facility] Comment on above: Order Comment: 134 Result Comment: QNS UTO X1 Performed By: #### L 506.1000, L100.0100, L501.9985, L500.4050 #### [facility] [address] [place], [address] MCV Normal 81-99 [facility] Comment on above: Order Comment: 134 Result Comment: QNS UTO X1 Performed By: #### L 506.1000, L100.0100, L501.9985, L500.4050 #### [facility] [address] [place], [address] NEUT% Normal 47-70 [facility] Comment on above: Order Comment: 134 Result Comment: QNS UTO X1 Performed By: #### L 506.1000, L100.0100, L501.9985, L500.4050 #### [facility] [address] [place], [address] PLT Normal 150-450 [facility] Comment on above: Order Comment: 134 Result Comment: QNS UTO X1 Performed By: #### L 506.1000, L100.0100, L501.9985, L500.4050 #### [facility] [address] [place], [address] RBC Normal 4.2-5.4 [facility] Comment on above: Order Comment: 134 Result Comment: QNS UTO X1 Performed By: #### L 506.1000, L100.0100, L501.9985, L500.4050 #### [facility] [address] [place], [address] RDW CV Normal 11.6-14.6 [facility] Comment on above: Order Comment: 134 Result Comment: QNS UTO X1 Performed By: #### L 506.1000, L100.0100, L501.9985, L500.4050 #### [facility] [address] [place], [address] RDW SD Normal 35.1-43.9 [facility] Comment on above: Order Comment: 134 Result Comment: QNS UTO X1 Performed By: #### L 506.1000, L100.0100, L501.9985, L500.4050 #### [facility] [address] [place], [address] WBC Normal 4.4-11.0 [facility] Comment on above: Order Comment: 134 Result Comment: QNS UTO X1 Performed By: #### L 506.1000, L100.0100, L501.9985, L500.4050 #### [facility] [address] [place], [address] Lamotrigine (Lamictal) Level on 11-02-2024 LAMOTRIGINE 8.5 ug/mL Normal 2.0-20.0 [facility] Comment on above: Order Comment: 134 Result Comment: Dete ction Limit = 1.0 Performed at: - [facility] [id number] Detective Lieutenant: Cody Llanos MD, Phone: [phone] Performed By: #### L 500.4050, L506.1000, L100.0100, L501.9985 #### [facility] [address] [place], [address] Trileptal-Oxcarbazepineon OXCARBAZEPINE 5 ug/mL Low 10-35 [facility] Comment on above: Order Comment: 134 Result Comment: This test was developed and its performance characteristics determined by [employer]. It has not been cleared or approved by the Food and Drug Administration. Detection Limit = 1 Performed By: #### L 500.4050, L506.1000, L100.0100, L501.9985 #### [facility] [address] [place], [address] CRPon 11-01-2024 C-REACTIVE PROT 14.10 mg/L High 0.0-3.0 [facility] Comment on above: Performed By: #### L 500.4050, L506.1000, L100.0100, L501.9985 #### [facility] [address] [place], [address] Uric Acidon 11-01-2024 URIC 5.6 mg/dL Normal 2.6-6.0 [facility] Comment on above: Result Comment: The drugs N-Acetylcysteine and Metamizole may falsely depress this assay. Performed By: #### L 500.4050, L506.1000, L100.0100, L501.9985 #### [facility] [address] [place], [address] Hemoglobin A1con 10-30-2024 HbA1c (Bld) [Mass fraction] 7.1 % High <=5.6 [facility] Comment on above: Order Comment: 134 Result Comment: Norm al < 5.7 % Prediabetic 5.7 - 6.4 % Diabetic >or= 6.5 % Please note range changes. Performed By: #### L 500.4050, L506.1000, L100.0100, L501.9985 #### [facility] [address] [place], [address] Lipid Profileon 10-30-2024 CHOL:HDL 1.80 Normal [facility] Comment on above: Order Comment: 134 Performed By: #### L 500.4050, L506.1000, L100.0100, L501.9985 #### [facility] [address] [place], [address] Cholesterol [Mass/Vol] 99 mg/dL Normal <=200 [facility] Comment on above: Order Comment: 134 Result Comment: Chol esterol level, Desirable <200 mg/dL Borderline high cholesterol 200-239 mg/dL High cholesterol >=240 mg/dL Recommendations of the NCEP Adult Treatment Panel for the following risk-cutoff thresholds for the [place] population. Performed By: #### L 500.4050, L506.1000, L100.0100, L501.9985 #### [facility] [address] [place], [address] Cholesterol in HDL [Mass/Vol] 55 mg/dL Normal [facility] Comment on above: Order Comment: 134 Result Comment: Linda onal Cholesterol Education Program (NCEP) guidelines: <40 mg/dL: Low HDL-cholesterol (major risk factor for CHD) >= 60 mg/dL: High HDL-cholesterol (negative risk factor for CHD) HDL-cholesterol is affected by a number of factors, e.g. smoking, exercise, hormones, sex and age. Performed By: #### L 500.4050, L506.1000, L100.0100, L501.9985 #### [facility] [address] [place], [address] Cholesterol in LDL [Mass/Vol] 34 mg/dL Normal [facility] Comment on above: Order Comment: 134 Result Comment: Bord rjmrlb=567-263 mg/dL Higher Xqjt=127 mg/dL or greater Performed By: #### L 500.4050, L506.1000, L100.0100, L501.9985 #### [facility] [address] [place], [address] Cholesterol in VLDL [Mass/Vol] 10 mg/dL Normal 5-40 [facility] Comment on above: Order Comment: 134 Performed By: #### L 500.4050, L506.1000, L100.0100, L501.9985 #### [facility] [address] [place], [address] Triglyceride [Mass/Vol] 51 mg/dL Normal [facility] Comment on above: Order Comment: 134 Result Comment: The drugs N-Acetylcysteine and Metamizole may falsely depress this assay. Normal range: <150 mg/dL Borderline High: 150-199 mg/dL High: 200-499 mg/dL Very High: >500 mg/dL Performed By: #### L 500.4050, L506.1000, L100.0100, L501.9985 #### [facility] [address] [place], [address] Vitamin D,25 Hydroxyon 10-30 Vitamin D 25-OH 22.0 ng/mL Low 30-100 [facility] Comment on above: Order Comment: 134 Result Comment: Maricarmen min D Status Deficiency: <20 ng/mL (50nmol/L) Insufficiency: 20-30 ng/mL (50-75 nmol/L) Sufficiency: 30-100 ng/mL (75-250 nmol/L) Toxicity: >100 ng/mL (>250 nmol/L) Performed By: #### L 500.4050, L506.1000, L100.0100, L501.9985 #### [facility] [address] [place], [address] CBC-Complete Blood Cnt No Di ffon 10-25-2024 Erythrocyte distribution width (RBC) [Ratio] 15.7 % High 11.6-14.6 [facility] Comment on above: Order Comment: 134 Performed By: #### L 500.4050, L506.1000, L100.0100, L501.9985 #### [facility] [address] [place], [address] Hematocrit (Bld) [Volume fraction] 39.5 % Normal 37-47 [facility] Comment on above: Order Comment: 134 Performed By: #### L 500.4050, L506.1000, L100.0100, L501.9985 #### [facility] [address] [place], [address] Hemoglobin (Bld) [Mass/Vol] 13.0 g/dL Normal 12.0-15.0 [facility] Comment on above: Order Comment: 134 Performed By: #### L 500.4050, L506.1000, L100.0100, L501.9985 #### [facility] [address] [place], [address] MCH (RBC) [Entitic mass] 29.1 pg Normal 27.0-32.0 [facility] Comment on above: Order Comment: 134 Performed By: #### L 500.4050, L506.1000, L100.0100, L501.9985 #### [facility] [address] [place], [address] MCHC (RBC) [Mass/Vol] 32.9 g/dL Normal 32-36 [facility] Comment on above: Order Comment: 134 Performed By: #### L 500.4050, L506.1000, L100.0100, L501.9985 #### [facility] [address] [place], [address] MCV (RBC) [Entitic vol] 88.4 fL Normal 81-99 [facility] Comment on above: Order Comment: 134 Performed By: #### L 500.4050, L506.1000, L100.0100, L501.9985 #### [facility] [address] [place], [address] Platelet mean volume (Bld) [Entitic vol] 11.9 fL Normal 6.2-12.0 [facility] Comment on above: Order Comment: 134 Performed By: #### L 500.4050, L506.1000, L100.0100, L501.9985 #### [facility] [address] [place], [address] Platelets (Bld) [#/Vol] 104 10*3/uL Low 150-450 [facility] Comment on above: Order Comment: 134 Performed By: #### L 500.4050, L506.1000, L100.0100, L501.9985 #### [facility] [address] [place], [address] RBC (Bld) [#/Vol] 4.47 10*6/uL Normal 4.2-5.4 [facility] Comment on above: Order Comment: 134 Performed By: #### L 500.4050, L506.1000, L100.0100, L501.9985 #### [facility] [address] [place], [address] RDW SD 51.5 fl High 35.1-43.9 [facility] Comment on above: Order Comment: 134 Performed By: #### L 500.4050, L506.1000, L100.0100, L501.9985 #### [facility] [address] [place], [address] WBC (Bld) [#/Vol] 6.3 10*3/uL Normal 4.4-11.0 [facility] Comment on above: Order Comment: 134 Performed By: #### L 500.4050, L506.1000, L100.0100, L501.9985 #### [facility] [address] [place], [address] Comprehensive Metabolic Prof vton 10-25-2024 Albumin [Mass/Vol] 3.8 g/dL Normal 3.4-4.8 [facility] Comment on above: Order Comment: 134 Performed By: #### L 500.4050, L506.1000, L100.0100, L501.9985 #### [facility] [address] [place], [address] Albumin/Globulin [Mass ratio] 0.9 {ratio} Normal 0.9-2.4 [facility] Comment on above: Order Comment: 134 Performed By: #### L 500.4050, L506.1000, L100.0100, L501.9985 #### [facility] [address] [place], [address] ALK PHOS 117 U/L High 35-104 [facility] Comment on above: Order Comment: 134 Performed By: #### L 500.4050, L506.1000, L100.0100, L501.9985 #### [facility] [address] [place], [address] ALT [Catalytic activity/Vol] 37 U/L High <=34 [facility] Comment on above: Order Comment: 134 Performed By: #### L 500.4050, L506.1000, L100.0100, L501.9985 #### [facility] [address] [place], [address] AST [Catalytic activity/Vol] 44 U/L High <=31 [facility] Comment on above: Order Comment: 134 Performed By: #### L 500.4050, L506.1000, L100.0100, L501.9985 #### [facility] [address] [place], [address] Bilirubin [Mass/Vol] 0.50 mg/dL Normal 0.00-1.30 [facility] Comment on above: Order Comment: 134 Performed By: #### L 500.4050, L506.1000, L100.0100, L501.9985 #### [facility] [address] [place], [address] BUN/CRE 25.5 RATIO High 10-20 [facility] Comment on above: Order Comment: 134 Performed By: #### L 500.4050, L506.1000, L100.0100, L501.9985 #### [facility] [address] [place], [address] Calcium [Mass/Vol] 9.4 mg/dL Normal 7.6-11.0 [facility] Comment on above: Order Comment: 134 Performed By: #### L 500.4050, L506.1000, L100.0100, L501.9985 #### [facility] [address] [place], [address] Chloride [Moles/Vol] 101 mmol/L Normal 98-108 [facility] Comment on above: Order Comment: 134 Performed By: #### L 500.4050, L506.1000, L100.0100, L501.9985 #### [facility] [address] [place], [address] CO2 [Moles/Vol] 23.5 mmol/L Normal 21.0-32.0 [facility] Comment on above: Order Comment: 134 Performed By: #### L 500.4050, L506.1000, L100.0100, L501.9985 #### [facility] [address] [place], [address] Creatinine [Mass/Vol] 0.93 mg/dL Normal 0.70-1.20 [facility] Comment on above: Order Comment: 134 Performed By: #### L 500.4050, L506.1000, L100.0100, L501.9985 #### [facility] [address] [place], [address] GAP 10 Normal 5-15 [facility] Comment on above: Order Comment: 134 Performed By: #### L 500.4050, L506.1000, L100.0100, L501.9985 #### [facility] [address] [place], [address] GFR/1.73 sq M.predicted among non-blacks MDRD (S/P/Bld) [Vol rate/Area] 65 mL/min/{1.73_m2} Normal >60 [facility] Comment on above: Order Comment: 134 Result Comment: mL/m in/1.73m2 CKD-EPI Creatinine Equation (2020) Performed By: #### L 500.4050, L506.1000, L100.0100, L501.9985 #### [facility] [address] [place], [address] Globulin (S) [Mass/Vol] 4.4 g/dL High 2.2-4.2 [facility] Comment on above: Order Comment: 134 Performed By: #### L 500.4050, L506.1000, L100.0100, L501.9985 #### [facility] [address] [place], [address] Glucose [Mass/Vol] 147 mg/dL High 70-99 [facility] Comment on above: Order Comment: 134 Performed By: #### L 500.4050, L506.1000, L100.0100, L501.9985 #### [facility] [address] [place], [address] Potassium [Moles/Vol] 4.7 mmol/L Normal 3.3-5.1 [facility] Comment on above: Order Comment: 134 Performed By: #### L 500.4050, L506.1000, L100.0100, L501.9985 #### [facility] [address] [place], [address] Sodium [Moles/Vol] 134 mmol/L Normal 133-145 [facility] Comment on above: Order Comment: 134 Performed By: #### L 500.4050, L506.1000, L100.0100, L501.9985 #### [facility] [address] [place], [address] T PROT 8.2 g/dL Normal 5.9-8.4 [facility] Comment on above: Order Comment: 134 Performed By: #### L 500.4050, L506.1000, L100.0100, L501.9985 #### [facility] [address] [place], [address] Urea nitrogen [Mass/Vol] 24 mg/dL High - [facility] Comment on above: Order Comment: 134 Performed By: #### L 500.4050, L506.1000, L100.0100, L501.9985 #### [facility] [address] [place], [address] Urine Cultureon 10-14-2024 [facility] Urine Culture Urine Culture Escherichia coli Clarita Count 80,000-100,000 Escherichia coli: REACTION Ampicillin Islt [...] TMP SMX Islt TRANG <=20 S Normal [facility] Comment on above: Performed By: #### L 500.4050, L506.1000, L100.0100, L501.9985 #### [facility] [address] [place], [address] Basic Metabolic Profile (BMP )on 10-12-2024 BUN Normal 09-22 [facility] Comment on above: Result Comment: Canc elled via OM: Order cancelled - Patient discharged Performed By: #### L 506.1000, L100.0100, L501.9985, L500.4050 #### [facility] [address] [place], [address] BUN/CRE Normal 10-20 [facility] Comment on above: Result Comment: Canc elled via OM: Order cancelled - Patient discharged Performed By: #### L 506.1000, L100.0100, L501.9985, L500.4050 #### [facility] [address] [place], [address] Calcium Normal 7.6-11.0 [facility] Comment on above: Result Comment: Canc elled via OM: Order cancelled - Patient discharged Performed By: #### L 506.1000, L100.0100, L501.9985, L500.4050 #### [facility] [address] [place], [address] CL Normal 98-108 [facility] Comment on above: Result Comment: Canc elled via OM: Order cancelled - Patient discharged Performed By: #### L 506.1000, L100.0100, L501.9985, L500.4050 #### [facility] [address] [place], [address] CO2 Normal 21.0-32.0 [facility] Comment on above: Result Comment: Canc elled via OM: Order cancelled - Patient discharged Performed By: #### L 506.1000, L100.0100, L501.9985, L500.4050 #### [facility] [address] [place], [address] CREAT,SERUM Normal 0.70-1.20 [facility] Comment on above: Result Comment: Canc elled via OM: Order cancelled - Patient discharged Performed By: #### L 506.1000, L100.0100, L501.9985, L500.4050 #### [facility] [address] [place], [address] eGFR Normal >60 [facility] Comment on above: Result Comment: Canc elled via OM: Order cancelled - Patient discharged Performed By: #### L 506.1000, L100.0100, L501.9985, L500.4050 #### [facility] [address] [place], [address] GAP Normal 5-15 [facility] Comment on above: Result Comment: Canc elled via OM: Order cancelled - Patient discharged Performed By: #### L 506.1000, L100.0100, L501.9985, L500.4050 #### [facility] [address] [place], [address] GLU Normal 70-99 [facility] Comment on above: Result Comment: Canc elled via OM: Order cancelled - Patient discharged Performed By: #### L 506.1000, L100.0100, L501.9985, L500.4050 #### [facility] [address] [place], [address] Potassium Normal 3.3-5.1 [facility] Comment on above: Result Comment: Canc elled via OM: Order cancelled - Patient discharged Performed By: #### L 506.1000, L100.0100, L501.9985, L500.4050 #### [facility] [address] [place], [address] Basic Metabolic Profile (BMP) Normal 133-145 [facility] Comment on above: Result Comment: Canc elled via OM: Order cancelled - Patient discharged Performed By: #### L 506.1000, L100.0100, L501.9985, L500.4050 #### [facility] [address] [place], [address] CBC W/Diff, Automatedon 05-0 Absolute Neut Normal 2.0-7.7 [facility] Comment on above: Result Comment: Canc elled via OM: Order cancelled - Patient discharged Performed By: #### L 506.1000, L100.0100, L501.9985, L500.4050 #### [facility] [address] [place], [address] HCT Normal 37-47 [facility] Comment on above: Result Comment: Canc elled via OM: Order cancelled - Patient discharged Performed By: #### L 506.1000, L100.0100, L501.9985, L500.4050 #### [facility] [address] [place], [address] HGB Normal 12.0-15.0 [facility] Comment on above: Result Comment: Canc elled via OM: Order cancelled - Patient discharged Performed By: #### L 506.1000, L100.0100, L501.9985, L500.4050 #### [facility] [address] [place], [address] MCH Normal 27.0-32.0 [facility] Comment on above: Result Comment: Canc elled via OM: Order cancelled - Patient discharged Performed By: #### L 506.1000, L100.0100, L501.9985, L500.4050 #### [facility] [address] [place], [address] MCHC Normal 32-36 [facility] Comment on above: Result Comment: Canc elled via OM: Order cancelled - Patient discharged Performed By: #### L 506.1000, L100.0100, L501.9985, L500.4050 #### [facility] [address] [place], [address] MCV Normal 81-99 [facility] Comment on above: Result Comment: Canc elled via OM: Order cancelled - Patient discharged Performed By: #### L 506.1000, L100.0100, L501.9985, L500.4050 #### [facility] [address] [place], [address] NEUT% Normal 47-70 [facility] Comment on above: Result Comment: Canc elled via OM: Order cancelled - Patient discharged Performed By: #### L 506.1000, L100.0100, L501.9985, L500.4050 #### [facility] [address] [place], [address] PLT Normal 150-450 [facility] Comment on above: Result Comment: Canc elled via OM: Order cancelled - Patient discharged Performed By: #### L 506.1000, L100.0100, L501.9985, L500.4050 #### [facility] [address] [place], [address] RBC Normal 4.2-5.4 [facility] Comment on above: Result Comment: Canc elled via OM: Order cancelled - Patient discharged Performed By: #### L 506.1000, L100.0100, L501.9985, L500.4050 #### [facility] [address] [place], [address] RDW CV Normal 11.6-14.6 [facility] Comment on above: Result Comment: Canc elled via OM: Order cancelled - Patient discharged Performed By: #### L 506.1000, L100.0100, L501.9985, L500.4050 #### [facility] [address] [place], [address] RDW SD Normal 35.1-43.9 [facility] Comment on above: Result Comment: Canc elled via OM: Order cancelled - Patient discharged Performed By: #### L 506.1000, L100.0100, L501.9985, L500.4050 #### [facility] [address] [place], [address] WBC Normal 4.4-11.0 [facility] Comment on above: Result Comment: Canc elled via OM: Order cancelled - Patient discharged Performed By: #### L 506.1000, L100.0100, L501.9985, L500.4050 #### [facility] [address] [place], [address] Absolute lymphocyte countOrd ered By: Tyrell Page on 10-11-2024 Lymphocytes Auto (Unsp spec) [#/Vol] 1.20 10*3/uL 0.83-4.51 [facility] Absolute neutrophil countOrd ered By: Tyrell Page on 10-11-2024 Neutrophils (Bld) [#/Vol] 2.6 10*3/uL 2.0-7.7 [facility] Anion gap in Serum or Plasma Ordered By: Tyrell Page on 10-11-2024 Anion gap [Moles/Vol] 10 mmol/L 5-15 [facility] Automated lymphocyte count a s percentage of total leukocytesOrdered By: Tyrell Page on 10-11-2024 Lymphocytes/100 WBC Auto (Unsp spec) 26.8 % 19-41 [facility] BUN/creatinine ratioOrdered By: Tyrell Page on 10-11-2024 Urea nitrogen/Creatinine [Mass ratio] 28.3 mg/mg High 10-20 [facility] Basic Metabolic Profile (BMP )on 10-11-2024 BUN/CRE 28.3 RATIO High 10-20 [facility] Comment on above: Performed By: #### L 506.1000, L100.0100, L501.9985, L500.4050 #### [facility] [address] [place], [address] Calcium [Mass/Vol] 9.2 mg/dL Normal 7.6-11.0 [facility] Comment on above: Performed By: #### L 506.1000, L100.0100, L501.9985, L500.4050 #### [facility] [address] [place], [address] Chloride [Moles/Vol] 108 mmol/L Normal 98-108 [facility] Comment on above: Performed By: #### L 506.1000, L100.0100, L501.9985, L500.4050 #### [facility] [address] [place], [address] CO2 [Moles/Vol] 20.7 mmol/L Low 21.0-32.0 [facility] Comment on above: Performed By: #### L 506.1000, L100.0100, L501.9985, L500.4050 #### [facility] [address] [place], [address] Creatinine [Mass/Vol] 0.76 mg/dL Normal 0.70-1.20 [facility] Comment on above: Performed By: #### L 506.1000, L100.0100, L501.9985, L500.4050 #### [facility] [address] [place], [address] ECRCL 89.89 ml/min Normal 50-250 [facility] Comment on above: Performed By: #### L 506.1000, L100.0100, L501.9985, L500.4050 #### [facility] [address] [place], [address] GAP 10 Normal 5-15 [facility] Comment on above: Performed By: #### L 506.1000, L100.0100, L501.9985, L500.4050 #### [facility] [address] [place], [address] GFR/1.73 sq M.predicted among non-blacks MDRD (S/P/Bld) [Vol rate/Area] 84 mL/min/{1.73_m2} Normal >60 [facility] Comment on above: Result Comment: mL/m in/1.73m2 CKD-EPI Creatinine Equation (2020) Performed By: #### L 506.1000, L100.0100, L501.9985, L500.4050 #### [facility] [address] [place], [address] Glucose [Mass/Vol] 131 mg/dL High 70-99 [facility] Comment on above: Performed By: #### L 506.1000, L100.0100, L501.9985, L500.4050 #### [facility] [address] [place], [address] Potassium [Moles/Vol] 3.9 mmol/L Normal 3.3-5.1 [facility] Comment on above: Performed By: #### L 506.1000, L100.0100, L501.9985, L500.4050 #### [facility] [address] [place], [address] Sodium [Moles/Vol] 139 mmol/L Normal 133-145 [facility] Comment on above: Performed By: #### L 506.1000, L100.0100, L501.9985, L500.4050 #### [facility] [address] [place], [address] Urea nitrogen [Mass/Vol] 21 mg/dL High 4-19 [facility] Comment on above: Performed By: #### L 506.1000, L100.0100, L501.9985, L500.4050 #### [facility] [address] [place], [address] Basophil percentageOrdered B y: Tyrell Page on 10-11-2024 Basophils/100 WBC (Bld) 0.7 % 0-1 [facility] Bedside Glucoseon 10-11-2024 FINGERSTICK GLU 137 mg/dL High 74-106 [facility] Comment on above: Result Comment: ALINA GABRIEL OF PATIENT CARE PER NURSING PROTOCOL Performed By: #### L 506.1000, L100.0100, L501.9985, L500.4050 #### [facility] [address] [place], [address] CBC W/Diff, Automatedon PLT EST SLT DEC Normal ADEQ [facility] Comment on above: Performed By: #### L 506.1000, L100.0100, L501.9985, L500.4050 #### [facility] [address] [place], [address] Carbon dioxide, total [Moles /volume] in Central venous bloodOrdered By: Tyrell Page on 10-11-2024 CO2 [Moles/Vol] 20.7 mmol/L Low 21.0-32.0 [facility] Chloride assayOrdered By: Arabella Page on 10-11-2024 Chloride [Moles/Vol] 108 mmol/L 98-108 [facility] Eosinophil percentageOrdered By: Tyrell Page on 10-11-2024 Eosinophils/100 WBC (Bld) 5.1 % High 0-5 [facility] Erythrocyte distribution wid th ratioOrdered By: Tyrell Page on 10-11-2024 Erythrocyte distribution width (RBC) [Ratio] 16.0 % High 11.6-14.6 [facility] Erythrocyte distribution wid th standard deviationOrdered By: Tyrell Page on 10-11-2024 Erythrocyte distribution width (RBC) [Ratio] 50.8 fl High 35.1-43.9 [facility] Glomerular filtration rate ( GFR) estimation/1.73 sq m using serum, plasma, or whole bOrdered By: Tyrell Page on 10-11-2024 GFR/1.73 sq M.predicted among non-blacks MDRD (S/P/Bld) [Vol rate/Area] 84 mL/min/{1.73_m2} >60 [facility] Comment on above: mL/min/1.73m2 CKD-EP I Creatinine Equation (2020) Glucose measurement at bedsi deOrdered By: Tyrell Page on 10-11-2024 Glucose [Mass/Vol] 137 mg/dL High 74-106 [facility] Comment on above: MANAGEMENT OF PATIEN T CARE PER NURSING PROTOCOL Hematocrit Auto (Bld) [Volum e fraction]Ordered By: Tyrell Page on 10-11-2024 Hematocrit (Bld) [Volume fraction] 34.0 % Low 37-47 [facility] Hemoglobin measurementOrdere d By: Tyrell Page on 10-11-2024 Hemoglobin (Bld) [Mass/Vol] 11.3 g/dL Low 12.0-15.0 [facility] Immature granulocytes/100 WB C Auto (Bld)Ordered By: Tyrell Page on 10-11-2024 Immature granulocytes/100 WBC (Bld) 0.200 % 0.0-0.9 [facility] Comment on above: IG% - Immature Granu locytes (promyelocytes, myelocytes and metamyelocytes) > 1% indicates that a LEFT SHIFT is Present. MCV (mean corpuscular volume ) determinationOrdered By: Tyrell Page on 10-11-2024 MCV (RBC) [Entitic vol] 86.7 fL 81-99 [facility] Magnesiumon 10-11-2024 Magnesium [Mass/Vol] 2.1 mg/dL Normal 1.5-2.2 [facility] Comment on above: Performed By: #### L 506.1000, L100.0100, L501.9985, L500.4050 #### [facility] [address] [place] [address], [address] Magnesium measurement (mass/ volume)Ordered By: Tyrell Page on 10-11-2024 Magnesium (Unsp spec) [Mass/Vol] 2.1 mg/dL 1.5-2.2 [facility] Mean corpuscular hemoglobin (MCH) determinationOrdered By: Tyrell Page on 10-11-2024 MCH (RBC) [Entitic mass] 28.8 pg 27.0-32.0 [facility] Mean corpuscular hemoglobin concentration (MCHC) determinationOrdered By: Tyrell Page on 10-11-2024 MCHC (RBC) [Mass/Vol] 33.2 g/dL 32-36 [facility] Mean platelet volume determi nationOrdered By: Tyrell Page on 10-11-2024 Platelet mean volume (Bld) [Entitic vol] 11.1 fL 6.2-12.0 [facility] Monocyte percentageOrdered B y: Tyrell Page on 10-11-2024 Monocytes/100 WBC (Bld) 9.8 % 0-10 [facility] Neutrophil percentageOrdered By: Tyrell Page on 10-11-2024 Neutrophils/100 WBC (Bld) 57.4 % 47-70 [facility] Nucleated red blood cell per centageOrdered By: Tyrell Page on 10-11-2024 Nucleated RBC/100 WBC (Bld) [Ratio] 0 % 0-5 [facility] Phosphoruson 10-11-2024 Phosphate [Mass/Vol] 3.7 mg/dL Normal 2.7-4.5 [facility] Comment on above: Performed By: #### L 506.1000, L100.0100, L501.9985, L500.4050 #### [facility] [address] [place], [place], [id number] Platelet countOrdered By: Arabella Page on 10-11-2024 Platelets (Bld) [#/Vol] 95 10*3/uL Low 150-450 [facility] Platelet estimateOrdered By: Tyrell Page on 10-11-2024 Platelets LM Ql (Bld) SLT DEC ADEQ [facility] Potassium measurement (mass/ volume)Ordered By: Tyrell Page on 10-11-2024 Potassium (Unsp spec) [Mass/Vol] 3.9 mmol/L 3.3-5.1 [facility] RBC Auto (Bld) [#/Vol]Ordere d By: Tyrell Page on 10-11-2024 RBC (Bld) [#/Vol] 3.92 10*6/uL Low 4.2-5.4 [facility] Serum creatinine measurement (mass/volume)Ordered By: Tyrell Page on 10-11-2024 Creatinine [Mass/Vol] 0.76 mg/dL 0.70-1.20 [facility] Serum glucose measurement (m ass/volume)Ordered By: Tyrell Page on 10-11-2024 Glucose [Mass/Vol] 131 mg/dL High 70-99 [facility] Serum or plasma calcium kim urement (mass/volume)Ordered By: Tyrell Page on 10-11-2024 Calcium [Mass/Vol] 9.2 mg/dL 7.6-11.0 [facility] Serum or plasma urea nitroge n measurement (mass/volume)Ordered By: Tyrell Page on 10-11-2024 Urea nitrogen [Mass/Vol] 21 mg/dL High 4-19 [facility] Sodium levelOrdered By: Nikunj Page on 10-11-2024 Sodium [Moles/Vol] 139 mmol/L 133-145 [facility] White blood cell (WBC) count Ordered By: Tyrell Page on 10-11-2024 WBC (Bld) [#/Vol] 4.5 10*3/uL 4.4-11.0 [facility] Bedside Glucoseon 10-10-2024 FINGERSTICK GLU 159 mg/dL High 74-106 [facility] Comment on above: Result Comment: ALINA GEMENT OF PATIENT CARE PER NURSING PROTOCOL Performed By: #### L 506.1000, L100.0100, L501.9985, L500.4050 #### [facility] [address] [place], [address] FINGERSTICK GLU 196 mg/dL High 74-106 [facility] Comment on above: Result Comment: ALINA GEMENT OF PATIENT CARE PER NURSING PROTOCOL Performed By: #### L 506.1000, L100.0100, L501.9985, L500.4050 #### [facility] [address] [place], [address] FINGERSTICK GLU 165 mg/dL High [address] Comment on above: Result Comment: ALINA GEMENT OF PATIENT CARE PER NURSING PROTOCOL Performed By: #### L 501.080 #### [facility] [address] [place], [address] FINGERSTICK GLU 159 mg/dL High 74-106 [facility] Comment on above: Result Comment: ALINA GEMENT OF PATIENT CARE PER NURSING PROTOCOL Performed By: #### L 506.1000, L100.0100, L501.9985, L500.4050 #### [facility] [address] [place], [address] FINGERSTICK GLU 148 mg/dL High 74-106 [facility] Comment on above: Result Comment: ALINA GABRIEL OF PATIENT CARE PER NURSING PROTOCOL Performed By: #### L 506.1000, L100.0100, L501.9985, L500.4050 #### [facility] [address] [place], [address] Bilirubin, totalOrdered By: Missael Lomeli on 10-10-2024 Bilirubin [Mass/Vol] 0.68 mg/dL 0.00-1.30 [facility] CBC W/Diff, Automatedon Absolute Lymph 1.03 X10 3/uL Normal 0.83-4.51 [facility] Comment on above: Performed By: #### L 506.1000, L100.0100, L501.9985, L500.4050 #### [facility] [address] [place], [address] Absolute Neut 3.4 X10 3/uL Normal 2.0-7.7 [facility] Comment on above: Performed By: #### L 506.1000, L100.0100, L501.9985, L500.4050 #### [facility] [address] [place], [address] Basophils/100 WBC (Bld) 0.6 % Normal 0-1 [facility] Comment on above: Performed By: #### L 506.1000, L100.0100, L501.9985, L500.4050 #### [facility] [address] [place], [address] Eosinophils/100 WBC (Bld) 5.1 % High 0-5 [facility] Comment on above: Performed By: #### L 506.1000, L100.0100, L501.9985, L500.4050 #### [facility] [address] [place], [address] Erythrocyte distribution width (RBC) [Ratio] 15.9 % High 11.6-14.6 [facility] Comment on above: Performed By: #### L 506.1000, L100.0100, L501.9985, L500.4050 #### [facility] [address] [place], [address] Hematocrit (Bld) [Volume fraction] 37.6 % Normal 37-47 [facility] Comment on above: Performed By: #### L 506.1000, L100.0100, L501.9985, L500.4050 #### [facility] [address] [place], [address] Hemoglobin (Bld) [Mass/Vol] 12.3 g/dL Normal 12.0-15.0 [facility] Comment on above: Performed By: #### L 506.1000, L100.0100, L501.9985, L500.4050 #### [facility] [address] [place], [address] IG% 0.200 Normal 0.0-0.9 [facility] Comment on above: Result Comment: IG% - Immature Granulocytes (promyelocytes, myelocytes and metamyelocytes) > 1% indicates that a LEFT SHIFT is Present. Performed By: #### L 506.1000, L100.0100, L501.9985, L500.4050 #### [facility] [address] [place], [address] Lymphocytes/100 WBC (Bld) 19.6 % Normal 19-41 [facility] Comment on above: Performed By: #### L 506.1000, L100.0100, L501.9985, L500.4050 #### [facility] [address] [place], [address] MCH (RBC) [Entitic mass] 28.8 pg Normal 27.0-32.0 [facility] Comment on above: Performed By: #### L 506.1000, L100.0100, L501.9985, L500.4050 #### [facility] [address] [place], [address] MCHC (RBC) [Mass/Vol] 32.7 g/dL Normal 32-36 [facility] Comment on above: Performed By: #### L 506.1000, L100.0100, L501.9985, L500.4050 #### [facility] [address] [place], [address] MCV (RBC) [Entitic vol] 88.1 fL Normal 81-99 [facility] Comment on above: Performed By: #### L 506.1000, L100.0100, L501.9985, L500.4050 #### [facility] [address] [place], [address] Monocytes/100 WBC (Bld) 9.1 % Normal 0-10 [facility] Comment on above: Performed By: #### L 506.1000, L100.0100, L501.9985, L500.4050 #### [facility] [address] [place], [address] Neutrophils/100 WBC (Bld) 65.4 % Normal 47-70 [facility] Comment on above: Performed By: #### L 506.1000, L100.0100, L501.9985, L500.4050 #### [facility] [address] [place], [address] Nucleated RBC (Bld) [#/Vol] 0 10*3/uL Normal 0-5 [facility] Comment on above: Performed By: #### L 506.1000, L100.0100, L501.9985, L500.4050 #### [facility] [address] [place], [address] Platelet mean volume (Bld) [Entitic vol] 11.7 fL Normal 6.2-12.0 [facility] Comment on above: Performed By: #### L 506.1000, L100.0100, L501.9985, L500.4050 #### [facility] [address] [place], [address] Platelets (Bld) [#/Vol] 100 10*3/uL Low 150-450 [facility] Comment on above: Performed By: #### L 506.1000, L100.0100, L501.9985, L500.4050 #### [facility] [address] [place], [address] RBC (Bld) [#/Vol] 4.27 10*6/uL Normal 4.2-5.4 [facility] Comment on above: Performed By: #### L 506.1000, L100.0100, L501.9985, L500.4050 #### [facility] [address] [place], [address] RDW SD 51.4 fl High 35.1-43.9 [facility] Comment on above: Performed By: #### L 506.1000, L100.0100, L501.9985, L500.4050 #### [facility] [address] [place], [address] WBC (Bld) [#/Vol] 5.3 10*3/uL Normal 4.4-11.0 [facility] Comment on above: Performed By: #### L 506.1000, L100.0100, L501.9985, L500.4050 #### [facility] [address] [place], [address] Calculated very low density lipoprotein (VLDL) cholesterol measurementOrdered By: Missael Lomeli on 10-10-2024 Calculated very low density lipoprotein (VLDL) cholesterol measurement 16 mg/dL 5-40 [facility] Comprehensive Metabolic Prof ilon 10-10-2024 Albumin [Mass/Vol] 3.5 g/dL Normal 3.4-4.8 [facility] Comment on above: Performed By: #### L 500.4050, L506.1000, L100.0100, L501.9985 #### [facility] [address] [place], [address] Albumin/Globulin [Mass ratio] 1.0 {ratio} Normal 0.9-2.4 [facility] Comment on above: Performed By: #### L 500.4050, L506.1000, L100.0100, L501.9985 #### [facility] [address] [place], [address] ALK PHOS 122 U/L High 35-104 [facility] Comment on above: Performed By: #### L 500.4050, L506.1000, L100.0100, L501.9985 #### [facility] [address] [place], [address] ALT [Catalytic activity/Vol] 23 U/L Normal <=34 [facility] Comment on above: Performed By: #### L 500.4050, L506.1000, L100.0100, L501.9985 #### [facility] [address] [place], [address] AST [Catalytic activity/Vol] 37 U/L High <=31 [facility] Comment on above: Result Comment: Hemo lysis present, Results??could be affected. ?? Performed By: #### L 500.4050, L506.1000, L100.0100, L501.9985 #### [facility] [address] [place], [address] Bilirubin [Mass/Vol] 0.68 mg/dL Normal 0.00-1.30 [facility] Comment on above: Performed By: #### L 500.4050, L506.1000, L100.0100, L501.9985 #### [facility] [address] [place], [address] BUN/CRE 25.4 RATIO High 10-20 [facility] Comment on above: Performed By: #### L 500.4050, L506.1000, L100.0100, L501.9985 #### [facility] [address] [place], [address] Calcium [Mass/Vol] 8.9 mg/dL Normal 7.6-11.0 [facility] Comment on above: Performed By: #### L 500.4050, L506.1000, L100.0100, L501.9985 #### [facility] [address] [place], [address] Chloride [Moles/Vol] 106 mmol/L Normal 98-108 [facility] Comment on above: Performed By: #### L 500.4050, L506.1000, L100.0100, L501.9985 #### [facility] [address] [place], [address] CO2 [Moles/Vol] 19.0 mmol/L Low 21.0-32.0 [facility] Comment on above: Performed By: #### L 500.4050, L506.1000, L100.0100, L501.9985 #### [facility] [address] [place], [address] Creatinine [Mass/Vol] 0.78 mg/dL Normal 0.70-1.20 [facility] Comment on above: Performed By: #### L 500.4050, L506.1000, L100.0100, L501.9985 #### [facility] [address] [place], [address] ECRCL 88.83 ml/min Normal 50-250 [facility] Comment on above: Performed By: #### L 500.4050, L506.1000, L100.0100, L501.9985 #### [facility] [address] [place], [address] GAP 13 Normal 5-15 [facility] Comment on above: Performed By: #### L 500.4050, L506.1000, L100.0100, L501.9985 #### [facility] [address] [place], [address] GFR/1.73 sq M.predicted among non-blacks MDRD (S/P/Bld) [Vol rate/Area] 81 mL/min/{1.73_m2} Normal >60 [facility] Comment on above: Result Comment: mL/m in/1.73m2 CKD-EPI Creatinine Equation (2020) Performed By: #### L 500.4050, L506.1000, L100.0100, L501.9985 #### [facility] [address] [place], [address] Globulin (S) [Mass/Vol] 3.7 g/dL Normal 2.2-4.2 [facility] Comment on above: Performed By: #### L 500.4050, L506.1000, L100.0100, L501.9985 #### [facility] [address] [place], [address] Glucose [Mass/Vol] 151 mg/dL High 70-99 [facility] Comment on above: Performed By: #### L 500.4050, L506.1000, L100.0100, L501.9985 #### [facility] [address] [place], [address] Potassium [Moles/Vol] 4.3 mmol/L Normal 3.3-5.1 [facility] Comment on above: Result Comment: Hemo lysis present, Results??could be affected. ?? Performed By: #### L 500.4050, L506.1000, L100.0100, L501.9985 #### [facility] [address] [place], [address] Sodium [Moles/Vol] 138 mmol/L Normal 133-145 [facility] Comment on above: Performed By: #### L 500.4050, L506.1000, L100.0100, L501.9985 #### [facility] [address] [place], [address] T PROT 7.2 g/dL Normal 5.9-8.4 [facility] Comment on above: Performed By: #### L 500.4050, L506.1000, L100.0100, L501.9985 #### [facility] [address] [place], [address] Urea nitrogen [Mass/Vol] 20 mg/dL High 4-19 [facility] Comment on above: Performed By: #### L 500.4050, L506.1000, L100.0100, L501.9985 #### [facility] [address] [place], [address] Folate [Moles/volume] in Ser um or PlasmaOrdered By: Missael Lomeli on 10-10-2024 Folate [Moles/Vol] 7.20 ng/mL 4.60-34.80 [facility] Comment on above: Hemolysis, Results w ill be affected, Requires Recollection. Folates,Serum (Folic Acid)on 10-10-2024 FOLATES,SERUM 7.20 ng/mL Normal 4.60-34.80 [facility] Comment on above: Order Comment: 134 Result Comment: Hemo lysis, Results will be affected, Requires Recollection. Performed By: #### L 500.4050, L506.1000, L100.0100, L501.9985 #### [facility] [address] [place], [address] Hemoglobin A1con 10-10-2024 HbA1c (Bld) [Mass fraction] 7.2 % High <=5.6 [facility] Comment on above: Result Comment: Norm al < 5.7 % Prediabetic 5.7 - 6.4 % Diabetic >or= 6.5 % Please note range changes. Performed By: #### L 500.4050, L506.1000, L100.0100, L501.9985 #### [facility] [address] [place], [address] LDL calc ser/plasOrdered By: Missael Lomeli on 10-10-2024 Cholesterol in LDL [Mass/Vol] 31 mg/dL [facility] Comment on above: Lhwryavmms=945-795 m g/dL & Higher Yiiz=577 mg/dL or greater Laboratory - Chemistry and C hemistry - challengeOrdered By: Missael Lomeli on 10-10-2024 AST [Catalytic activity/Vol] 37 U/L High <32 [facility] Comment on above: Hemolysis present, R esults could be affected. Lipid Profileon 10-10-2024 CHOL:HDL 1.84 Normal [facility] Comment on above: Performed By: #### L 506.1000, L100.0100, L501.9985, L500.4050 #### [facility] [address] [place], [address] Cholesterol [Mass/Vol] 103 mg/dL Normal <=200 [facility] Comment on above: Result Comment: Chol esterol level, Desirable <200 mg/dL Borderline high cholesterol 200-239 mg/dL High cholesterol >=240 mg/dL Recommendations of the NCEP Adult Treatment Panel for the following risk-cutoff thresholds for the [place] population. Performed By: #### L 506.1000, L100.0100, L501.9985, L500.4050 #### [facility] [address] [place], [address] Cholesterol in HDL [Mass/Vol] 56 mg/dL Normal [facility] Comment on above: Result Comment: Linda onal Cholesterol Education Program (NCEP) guidelines: <40 mg/dL: Low HDL-cholesterol (major risk factor for CHD) >= 60 mg/dL: High HDL-cholesterol (negative risk factor for CHD) HDL-cholesterol is affected by a number of factors, e.g. smoking, exercise, hormones, sex and age. Performed By: #### L 506.1000, L100.0100, L501.9985, L500.4050 #### [facility] [address] [place], [address] Cholesterol in LDL [Mass/Vol] 31 mg/dL Normal [facility] Comment on above: Result Comment: Bord xaqjvy=883-076 mg/dL Higher Lyje=486 mg/dL or greater Performed By: #### L 506.1000, L100.0100, L501.9985, L500.4050 #### [facility] [address] [place], [address] Cholesterol in VLDL [Mass/Vol] 16 mg/dL Normal 5-40 [facility] Comment on above: Performed By: #### L 506.1000, L100.0100, L501.9985, L500.4050 #### [facility] [address] [place], [address] Triglyceride [Mass/Vol] 82 mg/dL Normal [facility] Comment on above: Result Comment: The drugs N-Acetylcysteine and Metamizole may falsely depress this assay. Normal range: <150 mg/dL Borderline High: 150-199 mg/dL High: 200-499 mg/dL Very High: >500 mg/dL Performed By: #### L 506.1000, L100.0100, L501.9985, L500.4050 #### [facility] [address] [place], [address] Phosphoruson 10-10-2024 Phosphate [Mass/Vol] 3.3 mg/dL Normal 2.7-4.5 [facility] Comment on above: Performed By: #### L 506.1000, L100.0100, L501.9985, L500.4050 #### [facility] [address] [place], [address] Screening total cholesterol/ high density lipoprotein (HDL) cholesterol ratioOrdered By: Missael Lomeli on 10-10-2024 Cholesterol.total/Cho lesterol in HDL [Mass ratio] 1.84 {ratio} [facility] Serum globulin measurementOr dered By: Missael Lomeli on 10-10-2024 Globulin (S) [Mass/Vol] 3.7 g/dL 2.2-4.2 [facility] Serum or plasma alanine burnette otransferase (ALT) measurementOrdered By: Missael Lomeli on 10-10-2024 ALT [Catalytic activity/Vol] 23 U/L <35 [facility] Serum or plasma albumin kim urement (mass/volume)Ordered By: Missael Lomeli on 10-10-2024 Albumin [Mass/Vol] 3.5 g/dL 3.4-4.8 [facility] Serum or plasma albumin/glob ulin mass ratioOrdered By: Missael Lomeli on 10-10-2024 Albumin/Globulin [Mass ratio] 1.0 {ratio} 0.9-2.4 [facility] Serum or plasma alkaline regina sphatase measurementOrdered By: Missael Lomeli on 10-10-2024 ALP [Catalytic activity/Vol] 122 U/L High 35-104 [facility] Serum or plasma cholesterol in HDL measurement (mass/volume)Ordered By: Missael Lomeli on 10-10-2024 Cholesterol in HDL [Mass/Vol] 56 mg/dL >40 [facility] Comment on above: National Cholesterol Education Program (NCEP) guidelines:<40 mg/dL: Low HDL-cholesterol (major risk factor for CHD)>= 60 mg/dL: High HDL-cholesterol (negative risk factor for CHD)HDL-cholesterol is affected by a number of factors, e.g. smoking, exercise, hormones, sex and age. Serum or plasma cholesterol measurement (mass/volume)Ordered By: Missael Lomeli on 10-10-2024 Cholesterol [Mass/Vol] 103 mg/dL <201 [facility] Comment on above: Cholesterol level, D esirable <200 mg/dLBorderline high cholesterol 200-239 mg/dLHigh cholesterol >=240 mg/dLRecommendations of the NCEP Adult Treatment Panel for the following risk-cutoff thresholds for the [place] population. Total proteinOrdered By: Enrrique Lomeli on 10-10-2024 Protein [Mass/Vol] 7.2 g/dL 5.9-8.4 [facility] Triglycerides measurementOrd ered By: Missael Lomeli on 10-10-2024 Triglyceride [Mass/Vol] 82 mg/dL <199 [facility] Comment on above: The drugs N-Acetylcy steine and Metamizole may falsely depress this assay. Normal range: <150 mg/dLBorderline High: 150-199 mg/dLHigh: 200-499 mg/dLVery High: >500 mg/dL Absolute lymphocyte countOrd ered By: Shayna Malhotra on 10-09-2024 Lymphocytes Auto (Unsp spec) [#/Vol] 0.97 10*3/uL 0.83-4.51 [facility] Absolute neutrophil countOrd ered By: Dany Richardson on 10-09-2024 Neutrophils (Bld) [#/Vol] 4.9 10*3/uL 2.0-7.7 [facility] Absolute neutrophil countOrd ered By: Shayna Malhotra on 10-09-2024 Neutrophils (Bld) [#/Vol] 4.4 10*3/uL 2.0-7.7 [facility] Alcohol, Blood (Medical)-Ser umon 10-09-2024 SERUM ETOH < 10.1 Normal <=10.0 [facility] Comment on above: Result Comment: This test is for medical purposes only. The legal definition of intoxication varies according to local law. Performed By: #### L 500.4050, L506.1000, L100.0100, L501.9985 #### [facility] [address] [place], [place] [address]all [facility] [place], [address] Amorphous sediment detection in urine sediment by light microscopyOrdered By: Dany Richardson on 10-09-2024 Amorphous sediment LM Ql (Urine sed) 1+ [facility] Amphetamine detection with 1 000 ng/mL as cutoffOrdered By: Missael Lomeli on 10-09-2024 Amphetamines Screen method >1000 ng/mL Ql (U) Negative < 200 ng/mL [facility] Anion gap in Serum or Plasma Ordered By: Dany Richardson on 10-09-2024 Anion gap [Moles/Vol] 11 mmol/L 5-15 [facility] Anion gap in Serum or Plasma Ordered By: Shayna Malhotra on 10-09-2024 Anion gap [Moles/Vol] 12 mmol/L 10-18 [facility] Automated lymphocyte count a s percentage of total leukocytesOrdered By: Shayna Malhotra on 10-09-2024 Lymphocytes/100 WBC Auto (Unsp spec) 16.1 % Low 19-41 [facility] BUN/creatinine ratioOrdered By: Dany Richardson on 10-09-2024 Urea nitrogen/Creatinine [Mass ratio] 26.6 mg/mg High 03-25 [facility] BUN/creatinine ratioOrdered By: Shayna Malhotra on 10-09-2024 Urea nitrogen/Creatinine [Mass ratio] 25.9 mg/mg High 03-25 [facility] Basophil percentageOrdered B y: Dany Richardson on 10-09-2024 Basophils/100 WBC (Bld) 0.4 % 0-1 [facility] Basophil percentageOrdered B y: Shayna Malhotra on 10-09-2024 Basophils/100 WBC (Bld) 0.5 % 0- [facility] Bilirubin Test strip Ql (U)O rdered By: Dany Richardson on 10-09-2024 Bilirubin Ql (U) Negative Negative [facility] Bilirubin, totalOrdered By: Dany Richardson on 10-09-2024 Bilirubin [Mass/Vol] 0.67 mg/dL 0.00-1.30 [facility] Bilirubin, totalOrdered By: Shayna Malhotra on 10-09-2024 Bilirubin [Mass/Vol] 0.62 mg/dL 0.00-1.30 [facility] CBC W/Diff, Automatedon Absolute Lymph 1.11 X10 3/uL Normal 0.83-4.51 [facility] Comment on above: Performed By: #### L 506.1000, L100.0100, L501.9985, L500.4050 #### [facility] [address] [place], [place], [id number] Absolute Neut 4.9 X10 3/uL Normal 2.0-7.7 [facility] Comment on above: Performed By: #### L 506.1000, L100.0100, L501.9985, L500.4050 #### [facility] [address] [place], [address] Basophils/100 WBC (Bld) 0.4 % Normal 0-1 [facility] Comment on above: Performed By: #### L 506.1000, L100.0100, L501.9985, L500.4050 #### [facility] [address] [place], [address] Eosinophils/100 WBC (Bld) 2.5 % Normal 0-5 [facility] Comment on above: Performed By: #### L 506.1000, L100.0100, L501.9985, L500.4050 #### [facility] [address] [place], [address] Erythrocyte distribution width (RBC) [Ratio] 15.9 % High 11.6-14.6 [facility] Comment on above: Performed By: #### L 506.1000, L100.0100, L501.9985, L500.4050 #### [facility] [address] [place], [address] Hematocrit (Bld) [Volume fraction] 40.8 % Normal 37-47 [facility] Comment on above: Performed By: #### L 506.1000, L100.0100, L501.9985, L500.4050 #### [facility] [address] [place], [address] Hemoglobin (Bld) [Mass/Vol] 13.5 g/dL Normal 12.0-15.0 [facility] Comment on above: Performed By: #### L 506.1000, L100.0100, L501.9985, L500.4050 #### [facility] [address] [place], [address] IG% 0.400 Normal 0.0-0.9 [facility] Comment on above: Result Comment: IG% - Immature Granulocytes (promyelocytes, myelocytes and metamyelocytes) > 1% indicates that a LEFT SHIFT is Present. Performed By: #### L 506.1000, L100.0100, L501.9985, L500.4050 #### [facility] [address] [place], [address] Lymphocytes/100 WBC (Bld) 16.3 % Low 19-41 [facility] Comment on above: Performed By: #### L 506.1000, L100.0100, L501.9985, L500.4050 #### [facility] [address] [place], [address] MCH (RBC) [Entitic mass] 28.9 pg Normal 27.0-32.0 [facility] Comment on above: Performed By: #### L 506.1000, L100.0100, L501.9985, L500.4050 #### [facility] [address] [place], [address] MCHC (RBC) [Mass/Vol] 33.1 g/dL Normal 32-36 [facility] Comment on above: Performed By: #### L 506.1000, L100.0100, L501.9985, L500.4050 #### [facility] [address] [place], [address] MCV (RBC) [Entitic vol] 87.4 fL Normal 81-99 [facility] Comment on above: Performed By: #### L 506.1000, L100.0100, L501.9985, L500.4050 #### [facility] [address] [place], [address] Monocytes/100 WBC (Bld) 8.3 % Normal 0-10 [facility] Comment on above: Performed By: #### L 506.1000, L100.0100, L501.9985, L500.4050 #### [facility] [address] [place], [address] Neutrophils/100 WBC (Bld) 72.1 % High 47-70 [facility] Comment on above: Performed By: #### L 506.1000, L100.0100, L501.9985, L500.4050 #### [facility] [address] [place], [address] Nucleated RBC (Bld) [#/Vol] 0 10*3/uL Normal 0-5 [facility] Comment on above: Performed By: #### L 506.1000, L100.0100, L501.9985, L500.4050 #### [facility] [address] [place], [address] Platelet mean volume (Bld) [Entitic vol] 11.8 fL Normal 6.2-12.0 [facility] Comment on above: Performed By: #### L 506.1000, L100.0100, L501.9985, L500.4050 #### [facility] [address] [place], [address] Platelets (Bld) [#/Vol] 106 10*3/uL Low 150-450 [facility] Comment on above: Performed By: #### L 506.1000, L100.0100, L501.9985, L500.4050 #### [facility] [address] [place], [address] RBC (Bld) [#/Vol] 4.67 10*6/uL Normal 4.2-5.4 [facility] Comment on above: Performed By: #### L 506.1000, L100.0100, L501.9985, L500.4050 #### [facility] [address] [place], [address] RDW SD 51.0 fl High 35.1-43.9 [facility] Comment on above: Performed By: #### L 506.1000, L100.0100, L501.9985, L500.4050 #### [facility] [address] [place], [address] WBC (Bld) [#/Vol] 6.8 10*3/uL Normal 4.4-11.0 [facility] Comment on above: Performed By: #### L 506.1000, L100.0100, L501.9985, L500.4050 #### [facility] [address] [place], [address] Absolute Lymph 0.97 X10 3/uL Normal 0.83-4.51 [facility] Comment on above: Order Comment: 134 Performed By: #### L 500.4050, L506.1000, L100.0100, L501.9985 #### [facility] [address] [place], [address] Absolute Neut 4.4 X10 3/uL Normal 2.0-7.7 [facility] Comment on above: Order Comment: 134 Performed By: #### L 500.4050, L506.1000, L100.0100, L501.9985 #### [facility] [address] [place], [address] Basophils/100 WBC (Bld) 0.5 % Normal 0-1 [facility] Comment on above: Order Comment: 134 Performed By: #### L 500.4050, L506.1000, L100.0100, L501.9985 #### [facility] [address] [place], [address] Eosinophils/100 WBC (Bld) 1.2 % Normal 0-5 [facility] Comment on above: Order Comment: 134 Performed By: #### L 500.4050, L506.1000, L100.0100, L501.9985 #### [facility] [address] [place], [address] Erythrocyte distribution width (RBC) [Ratio] 15.7 % High 11.6-14.6 [facility] Comment on above: Order Comment: 134 Performed By: #### L 500.4050, L506.1000, L100.0100, L501.9985 #### [facility] [address] [place], [address] Hematocrit (Bld) [Volume fraction] 40.9 % Normal 37-47 [facility] Comment on above: Order Comment: 134 Performed By: #### L 500.4050, L506.1000, L100.0100, L501.9985 #### [facility] [address] [place], [address] Hemoglobin (Bld) [Mass/Vol] 13.5 g/dL Normal 12.0-15.0 [facility] Comment on above: Order Comment: 134 Performed By: #### L 500.4050, L506.1000, L100.0100, L501.9985 #### [facility] [address] [place], [address] IG% 0.300 Normal 0.0-0.9 [facility] Comment on above: Order Comment: 134 Result Comment: IG% - Immature Granulocytes (promyelocytes, myelocytes and metamyelocytes) > 1% indicates that a LEFT SHIFT is Present. Performed By: #### L 500.4050, L506.1000, L100.0100, L501.9985 #### [facility] [address] [place], [address] Lymphocytes/100 WBC (Bld) 16.1 % Low 19-41 [facility] Comment on above: Order Comment: 134 Performed By: #### L 500.4050, L506.1000, L100.0100, L501.9985 #### [facility] [address] [place], [address] MCH (RBC) [Entitic mass] 28.8 pg Normal 27.0-32.0 [facility] Comment on above: Order Comment: 134 Performed By: #### L 500.4050, L506.1000, L100.0100, L501.9985 #### [facility] [address] [place], [address] MCHC (RBC) [Mass/Vol] 33.0 g/dL Normal 32-36 [facility] Comment on above: Order Comment: 134 Performed By: #### L 500.4050, L506.1000, L100.0100, L501.9985 #### [facility] [address] [place], [address] MCV (RBC) [Entitic vol] 87.4 fL Normal 81-99 [facility] Comment on above: Order Comment: 134 Performed By: #### L 500.4050, L506.1000, L100.0100, L501.9985 #### [facility] [address] [place], [address] Monocytes/100 WBC (Bld) 8.4 % Normal 0-10 [facility] Comment on above: Order Comment: 134 Performed By: #### L 500.4050, L506.1000, L100.0100, L501.9985 #### [facility] [address] [place], [address] Neutrophils/100 WBC (Bld) 73.5 % High 47-70 [facility] Comment on above: Order Comment: 134 Performed By: #### L 500.4050, L506.1000, L100.0100, L501.9985 #### [facility] [address] [place], [address] Nucleated RBC (Bld) [#/Vol] 0 10*3/uL Normal 0-5 [facility] Comment on above: Order Comment: 134 Performed By: #### L 500.4050, L506.1000, L100.0100, L501.9985 #### [facility] [address] [place], [address] Platelet mean volume (Bld) [Entitic vol] 10.8 fL Normal 6.2-12.0 [facility] Comment on above: Order Comment: 134 Performed By: #### L 500.4050, L506.1000, L100.0100, L501.9985 #### [facility] [address] [place], [address] Platelets (Bld) [#/Vol] 107 10*3/uL Low 150-450 [facility] Comment on above: Order Comment: 134 Performed By: #### L 500.4050, L506.1000, L100.0100, L501.9985 #### [facility] [address] [place], [address] RBC (Bld) [#/Vol] 4.68 10*6/uL Normal 4.2-5.4 [facility] Comment on above: Order Comment: 134 Performed By: #### L 500.4050, L506.1000, L100.0100, L501.9985 #### [facility] [address] [place], [address] RDW SD 50.2 fl High 35.1-43.9 [facility] Comment on above: Order Comment: 134 Performed By: #### L 500.4050, L506.1000, L100.0100, L501.9985 #### [facility] [address] [place], [address] WBC (Bld) [#/Vol] 6.0 10*3/uL Normal 4.4-11.0 [facility] Comment on above: Order Comment: 134 Performed By: #### L 500.4050, L506.1000, L100.0100, L501.9985 #### [facility] [address] [place], [address] CRPon 10-09-2024 C-REACTIVE PROT 5.92 mg/L High 0.0-3.0 [facility] Comment on above: Performed By: #### L 500.4050, L506.1000, L100.0100, L501.9985 #### [facility] [address] [place], [address] Carbon dioxide, total [Moles /volume] in Central venous bloodOrdered By: Dany Richardson on 10-09-2024 CO2 [Moles/Vol] 21.0 mmol/L 21.0-32.0 [facility] Carbon dioxide, total [Moles /volume] in Central venous bloodOrdered By: Shayna Malhotra on 10-09-2024 CO2 [Moles/Vol] 22.6 mmol/L 21.0-32.0 [facility] Chloride assayOrdered By: Nolan Richardson on 10-09-2024 Chloride [Moles/Vol] 106 mmol/L 98-108 [facility] Chloride assayOrdered By: Maryanne Malhotra on 10-09-2024 Chloride [Moles/Vol] 104 mmol/L 98-108 [facility] Comprehensive Metabolic Prof ilon 10-09-2024 Albumin [Mass/Vol] 3.8 g/dL Normal 3.4-4.8 [facility] Comment on above: Performed By: #### L 506.1000, L100.0100, L501.9985, L500.4050 #### [facility] [address] [place], [address] Albumin/Globulin [Mass ratio] 0.8 {ratio} Low 0.9-2.4 [facility] Comment on above: Performed By: #### L 506.1000, L100.0100, L501.9985, L500.4050 #### [facility] [address] [place], [address] ALK PHOS 135 U/L High 35-104 [facility] Comment on above: Performed By: #### L 506.1000, L100.0100, L501.9985, L500.4050 #### [facility] [address] [place], [address] ALT [Catalytic activity/Vol] 23 U/L Normal <=34 [facility] Comment on above: Performed By: #### L 506.1000, L100.0100, L501.9985, L500.4050 #### [facility] [address] [place], [address] AST [Catalytic activity/Vol] 40 U/L High <=31 [facility] Comment on above: Result Comment: Hemo lysis present, Results??could be affected. ?? Performed By: #### L 506.1000, L100.0100, L501.9985, L500.4050 #### [facility] [address] [place], [address] Bilirubin [Mass/Vol] 0.67 mg/dL Normal 0.00-1.30 [facility] Comment on above: Performed By: #### L 506.1000, L100.0100, L501.9985, L500.4050 #### [facility] [address] [place], [address] BUN/CRE 26.6 RATIO High 10-20 [facility] Comment on above: Performed By: #### L 506.1000, L100.0100, L501.9985, L500.4050 #### [facility] [address] [place], [address] Calcium [Mass/Vol] 9.7 mg/dL Normal 7.6-11.0 [facility] Comment on above: Performed By: #### L 506.1000, L100.0100, L501.9985, L500.4050 #### [facility] [address] [place], [address] Chloride [Moles/Vol] 106 mmol/L Normal 98-108 [facility] Comment on above: Performed By: #### L 506.1000, L100.0100, L501.9985, L500.4050 #### [facility] [address] [place], [address] CO2 [Moles/Vol] 21.0 mmol/L Normal 21.0-32.0 [facility] Comment on above: Performed By: #### L 506.1000, L100.0100, L501.9985, L500.4050 #### [facility] [address] [place], [address] Creatinine [Mass/Vol] 0.88 mg/dL Normal 0.70-1.20 [facility] Comment on above: Performed By: #### L 506.1000, L100.0100, L501.9985, L500.4050 #### [facility] [address] [place], [address] ECRCL 81.27 ml/min Normal 50-250 [facility] Comment on above: Performed By: #### L 506.1000, L100.0100, L501.9985, L500.4050 #### [facility] [address] [place], [address] GAP 11 Normal 5-15 [facility] Comment on above: Performed By: #### L 506.1000, L100.0100, L501.9985, L500.4050 #### [facility] [address] [place], [address] GFR/1.73 sq M.predicted among non-blacks MDRD (S/P/Bld) [Vol rate/Area] 70 mL/min/{1.73_m2} Normal >60 [facility] Comment on above: Result Comment: mL/m in/1.73m2 CKD-EPI Creatinine Equation (2020) Performed By: #### L 506.1000, L100.0100, L501.9985, L500.4050 #### [facility] [address] [place], [address] Globulin (S) [Mass/Vol] 4.6 g/dL High 2.2-4.2 [facility] Comment on above: Performed By: #### L 506.1000, L100.0100, L501.9985, L500.4050 #### [facility] [address] [place], [address] Glucose [Mass/Vol] 138 mg/dL High 70-99 [facility] Comment on above: Performed By: #### L 506.1000, L100.0100, L501.9985, L500.4050 #### [facility] [address] [place], [address] Potassium [Moles/Vol] 4.5 mmol/L Normal 3.3-5.1 [facility] Comment on above: Result Comment: Hemo lysis present, Results??could be affected. ?? Performed By: #### L 506.1000, L100.0100, L501.9985, L500.4050 #### [facility] [address] [place], [address] Sodium [Moles/Vol] 138 mmol/L Normal 133-145 [facility] Comment on above: Performed By: #### L 506.1000, L100.0100, L501.9985, L500.4050 #### [facility] [address] [place], [address] T PROT 8.4 g/dL Normal 5.9-8.4 [facility] Comment on above: Performed By: #### L 506.1000, L100.0100, L501.9985, L500.4050 #### [facility] [address] [place], [address] Urea nitrogen [Mass/Vol] 23 mg/dL High 4-19 [facility] Comment on above: Performed By: #### L 506.1000, L100.0100, L501.9985, L500.4050 #### [facility] [address] [place], [address] Albumin [Mass/Vol] 4.0 g/dL Normal 3.4-4.8 [facility] Comment on above: Order Comment: 134 Performed By: #### L 500.4050, L506.1000, L100.0100, L501.9985 #### [facility] [address] [place], [address] Albumin/Globulin [Mass ratio] 0.8 {ratio} Low 0.9-2.4 [facility] Comment on above: Order Comment: 134 Performed By: #### L 500.4050, L506.1000, L100.0100, L501.9985 #### [facility] [address] [place], [place], ALK PHOS 148 U/L High 35-104 [facility] Comment on above: Order Comment: 134 Performed By: #### L 500.4050, L506.1000, L100.0100, L501.9985 #### [facility] [address] [place], [address] ALT [Catalytic activity/Vol] 26 U/L Normal <=34 [facility] Comment on above: Order Comment: 134 Performed By: #### L 500.4050, L506.1000, L100.0100, L501.9985 #### [facility] [address] [place], [address] AST [Catalytic activity/Vol] 37 U/L High <=31 [facility] Comment on above: Order Comment: 134 Performed By: #### L 500.4050, L506.1000, L100.0100, L501.9985 #### [facility] [address] [place], [address] Bilirubin [Mass/Vol] 0.62 mg/dL Normal 0.00-1.30 [facility] Comment on above: Order Comment: 134 Performed By: #### L 500.4050, L506.1000, L100.0100, L501.9985 #### [facility] [address] [place], [address] BUN/CRE 25.9 RATIO High 10-20 [facility] Comment on above: Order Comment: 134 Performed By: #### L 500.4050, L506.1000, L100.0100, L501.9985 #### [facility] [address] [place], [address] Calcium [Mass/Vol] 9.6 mg/dL Normal 7.6-11.0 [facility] Comment on above: Order Comment: 134 Performed By: #### L 500.4050, L506.1000, L100.0100, L501.9985 #### [facility] [address] [place], [address] Chloride [Moles/Vol] 104 mmol/L Normal 98-108 [facility] Comment on above: Order Comment: 134 Performed By: #### L 500.4050, L506.1000, L100.0100, L501.9985 #### [facility] [address] [place], [address] CO2 [Moles/Vol] 22.6 mmol/L Normal 21.0-32.0 [facility] Comment on above: Order Comment: 134 Performed By: #### L 500.4050, L506.1000, L100.0100, L501.9985 #### [facility] [address] [place], [address] Creatinine [Mass/Vol] 0.82 mg/dL Normal 0.70-1.20 [facility] Comment on above: Order Comment: 134 Performed By: #### L 500.4050, L506.1000, L100.0100, L501.9985 #### [facility] [address] [place], [address] GAP 12 Normal 5-15 [facility] Comment on above: Order Comment: 134 Performed By: #### L 500.4050, L506.1000, L100.0100, L501.9985 #### [facility] [address] [place], [address] GFR/1.73 sq M.predicted among non-blacks MDRD (S/P/Bld) [Vol rate/Area] 76 mL/min/{1.73_m2} Normal >60 [facility] Comment on above: Order Comment: 134 Result Comment: mL/m in/1.73m2 CKD-EPI Creatinine Equation (2020) Performed By: #### L 500.4050, L506.1000, L100.0100, L501.9985 #### [facility] [address] [place], [address] Globulin (S) [Mass/Vol] 4.8 g/dL High 2.2-4.2 [facility] Comment on above: Order Comment: 134 Performed By: #### L 500.4050, L506.1000, L100.0100, L501.9985 #### [facility] [address] [place], [address] Glucose [Mass/Vol] 173 mg/dL High 70-99 [facility] Comment on above: Order Comment: 134 Performed By: #### L 500.4050, L506.1000, L100.0100, L501.9985 #### [facility] [address] [place], [address] Potassium [Moles/Vol] 4.2 mmol/L Normal 3.3-5.1 [facility] Comment on above: Order Comment: 134 Performed By: #### L 500.4050, L506.1000, L100.0100, L501.9985 #### [facility] [address] [place], [address] Sodium [Moles/Vol] 138 mmol/L Normal 133-145 [facility] Comment on above: Order Comment: 134 Performed By: #### L 500.4050, L506.1000, L100.0100, L501.9985 #### [facility] [address] [place], [address] T PROT 8.9 g/dL High 5.9-8.4 [facility] Comment on above: Order Comment: 134 Performed By: #### L 500.4050, L506.1000, L100.0100, L501.9985 #### [facility] [address] [place], [address] Urea nitrogen [Mass/Vol] 21 mg/dL High 4-19 [facility] Comment on above: Order Comment: 134 Performed By: #### L 500.4050, L506.1000, L100.0100, L501.9985 #### [facility] [address] [place], [address] Emergency Department Summary on 10-09-2024 Emergency Department Summary [facility] Medical Records Department [address] [place] [address] Emergency Department Summary 10/09/24 MR#: [id number] Acct: [id number] Name: VIDA NINA Rep #: [id number] : 1950 73 From: Dany Richardson MD PCP: Dr. Shayna Malhotra MD Status:REG ER Location: ED HPI History of Present Illness Chief Complaint: Lower Extremity Injury Narrative Narrative: 73-year-old female states that she had pins placed in her left foot approximately 15 years ago [place] after breaking her heel. She is currently in [facility]. She states for the last 2 weeks she has been having increasing foot pain. She states that on Tuesday, probably of the last week, she had x-rays obtained at the [facility]. She went and saw Dr. Shayna Malhotra on Tuesday, but he did not have the x-ray results. She states that she is having a lot of pain in her left heel that is worse with weightbearing and walking and palpation. She states that it feels as if she is having a baby out of her left heel. [facility] Medical History Obesity Anxiety Cancer Anxiety [...] topical TID #0 grams Unknown Rx powder ([facility]) quetiapine 100 mg tablet 300 mg (3 [...] ROS Narrative (more content not included)... Normal [facility] Eosinophil percentageOrdered By: Dany Richardson on 10-09-2024 Eosinophils/100 WBC (Bld) 2.5 % 0-5 [facility] Eosinophil percentageOrdered By: Shayna Malhotra on 10-09-2024 Eosinophils/100 WBC (Bld) 1.2 % 0-5 [facility] Epithelial cells.squamous LM Ql (Urine sed)Ordered By: Dany Richardson on 10-09-2024 Epithelial cells.squamous LM.HPF (Urine sed) [#/Area] 0 /[HPF] 5-10 [facility] Erythrocyte Sed Rateon 10-09 SED RATE 49 mm/hr High 0-30 [facility] Comment on above: Performed By: #### L 500.4050, L506.1000, L100.0100, L501.9985 #### [facility] [address] [place], [place], [address] Erythrocyte distribution wid th (RBC) [Ratio]Ordered By: Dany Richardson on 10-09-2024 Erythrocyte distribution width (RBC) [Entitic vol] 51.0 fL High 35.1-43.9 [facility] Erythrocyte distribution wid th (RBC) [Ratio]Ordered By: Shayna Malhotra on 10-09-2024 Erythrocyte distribution width (RBC) [Entitic vol] 50.2 fL High 35.1-43.9 [facility] Erythrocyte distribution wid th ratioOrdered By: Dany Richardson on 10-09-2024 Erythrocyte distribution width (RBC) [Ratio] 15.9 % High 11.6-14.6 [facility] Erythrocyte distribution wid th ratioOrdered By: Shayna Malhotra on 10-09-2024 Erythrocyte distribution width (RBC) [Ratio] 15.7 % High 11.6-14.6 [facility] Erythrocyte distribution wid th standard deviationOrdered By: Shayna Malhotra on 10-09-2024 Erythrocyte distribution width (RBC) [Ratio] 50.2 fl High 35.1-43.9 [facility] Erythrocyte sedimentation ra teOrdered By: Missael Lomeli on 10-09-2024 ESR (Bld) [Velocity] 49 mm/h High 0-30 [facility] Estimation of creatinine silvana aranceOrdered By: Dany Richardson on 10-09-2024 Estimated Creatinine Clearance Calc 81.27 ml/min 50-250 [facility] Extremity Lower without Cont raon 10-09-2024 Extremity Lower without Contra [facility] Imaging Services [address] [place], [place] [address] Extremity Lower without Contra MR#: [id number] Acct: [id number] Name: VIDA NINA Rep #: [id number] : 1950 F 73 From: Saul Sanchez MD PCP: Dr. Shayna Malhotra MD Status: ADM IN Study: Extremity Lower without Contra Date of Exam: 0 10/09/24 Exam# [id number] Ordering Dr: Missael Hernandez DO PROCEDURE: EXTREMITY [...] Hernandez at 2:20 a.m. 10/10/2024 Reading Location: [id number] CC: Dr. Missael Hernandez DO; Dr. Shayna Malhotra MD Engraving Operator: Signed Normal [facility] Foot min 3 Viewson 5 Foot min 3 Views [facility] Imaging Services [address] [place], [place] [address] Foot min 3 Views MR#: [id number] Acct: [id number] Name: VIDA NINA Rep #: [id number] : 1950 F 73 From: Alok Jiménez MD PCP: Dr. Shayna Malhotra MD Status: [facility] ER Study: Foot min 3 Views Date of Exam: 10/09/24 Exam# [id number] Ordering Dr: Dany Richardson MD EXAM: LEFT [...] Dany Richardson MD; Dr. Shayna Malhotra MD Engraving Operator: Signed Normal [facility] [facility] GFR/1.73 sq M.predicted saida g non-blacks MDRD (S/P/Bld) [Vol rate/Area]Ordered By: Dany Richardson on 10-09-2024 Estimated GFR (MDRD) Non-Af Amer 70 >60 [facility] Comment on above: mL/min/1.73m2 CKD-EP I Creatinine Equation (2020) GFR/1.73 sq M.predicted saida g non-blacks MDRD (S/P/Bld) [Vol rate/Area]Ordered By: Shayna Malhotra on 10-09-2024 Estimated GFR (MDRD) Non-Af Amer 76 >60 [facility] Comment on above: mL/min/1.73m2 CKD-EP I Creatinine Equation (2020) Glomerular filtration rate ( GFR) estimation/1.73 sq m using serum, plasma, or whole bOrdered By: Shayna Malhotra on 10-09-2024 GFR/1.73 sq M.predicted among non-blacks MDRD (S/P/Bld) [Vol rate/Area] 76 mL/min/{1.73_m2} >60 [facility] Comment on above: mL/min/1.73m2 CKD-EP I Creatinine Equation (2020) Glucose Ql (U)Ordered By: Nolan Richardson on 10-09-2024 Glucose (U) [Mass/Vol] 1000 mg/dL High Normal [facility] H AND P Exam - [facility] 10-09-2024 H&P Exam - Hospitalist [facility] Medical Records Department [address] [place] [address] H P Exam - Hospitalist 10/09/242118 MR#: [id number] Acct: [id number] Name: VIDA NINA Rep #: [id number] : 1950 73 From: Missael Hernandez DO PCP: Dr. Shayna Malhotra MD Status:ADM IN Location: [facility] [place] IT599-2 [facility] - General General Date of Admission: [...] is currently residing in assisted living at 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 [facility] Medical History Obesity Anxiety Cancer Anxiety [...] History powder primary doctor blood sugar [facility] History Lite Strips) blood-glucose [facility] Unknown History Lite Meter kit) lancets 28 gauge [facility] Unknown History Lancets) nystatin 100,000 unit/gram topical 1 applic topical TID #0 grams Unknown Rx powder ([facility]) quetiapine 100 mg tablet 300 mg (3 x 100 mg) PO BID #0 tabs 11/24/21 Unknown Rx aspirin 81 mg chewable tablet 81 mg PO DAILY 05/06/22 Unknown Hi (more content not included)... Normal [facility] Hematocrit Auto (Bld) [Volum e fraction]Ordered By: Dany Richardson on 10-09-2024 Hematocrit (Bld) [Volume fraction] 40.8 % 37-47 [facility] Hematocrit Auto (Bld) [Volum e fraction]Ordered By: Shayna Malhotra on 10-09-2024 Hematocrit (Bld) [Volume fraction] 40.9 % 37-47 [facility] Hemoglobin A1con 10-09-2024 HbA1c (Bld) [Mass fraction] 7.2 % High <=5.6 [facility] Comment on above: Order Comment: 134 Result Comment: Norm al < 5.7 % Prediabetic 5.7 - 6.4 % Diabetic >or= 6.5 % Please note range changes. Performed By: #### L 500.4050, L506.1000, L100.0100, L501.9985 #### [facility] [address] [place], [address] Hemoglobin A1c percentageOrd ered By: Missael Lomeli on 10-09-2024 HbA1c (Bld) [Mass fraction] 7.2 % High <5.7 [facility] Comment on above: Normal < 5.7 % Predi abetic 5.7 - 6.4 % Diabetic >or= 6.5 % Please note range changes. Hemoglobin A1c percentageOrd ered By: Shayna Malhotra on 10-09-2024 HbA1c (Bld) [Mass fraction] 7.2 % High <5.7 [facility] Comment on above: Normal < 5.7 % Predi abetic 5.7 - 6.4 % Diabetic >or= 6.5 % Please note range changes. Hemoglobin measurementOrdere d By: Dany Richardson on 10-09-2024 Hemoglobin (Bld) [Mass/Vol] 13.5 g/dL 12.0-15.0 [facility] Hemoglobin measurementOrdere d By: Shayna Malhotra on 10-09-2024 Hemoglobin (Bld) [Mass/Vol] 13.5 g/dL 12.0-15.0 [facility] Immature granulocytes/100 WB C Auto (Bld)Ordered By: Dany Richardson on 10-09-2024 Immature granulocytes/100 WBC (Bld) 0.400 % 0.0-0.9 [facility] Comment on above: IG% - Immature Granu locytes (promyelocytes, myelocytes and metamyelocytes) > 1% indicates that a LEFT SHIFT is Present. Immature granulocytes/100 WB C Auto (Bld)Ordered By: Shayna Malhotra on 10-09-2024 Immature granulocytes/100 WBC (Bld) 0.300 % 0.0-0.9 [facility] Comment on above: IG% - Immature Granu locytes (promyelocytes, myelocytes and metamyelocytes) > 1% indicates that a LEFT SHIFT is Present. Ketones Test strip Ql (U)Ord ered By: Dany Richarsdon on 10-09-2024 Ketones Ql (U) Negative Negative [facility] Laboratory - Chemistry and C hemistry - challengeOrdered By: Dany Richardson on 10-09-2024 AST [Catalytic activity/Vol] 40 U/L High <32 [facility] Comment on above: Hemolysis present, R esults could be affected. Laboratory - Chemistry and C hemistry - challengeOrdered By: Shayna Malhotra on 10-09-2024 AST [Catalytic activity/Vol] 37 U/L High <32 [facility] Lymphocytes Auto (Unsp spec) [#/Vol]Ordered By: Dany Richardson on 10-09-2024 Lymphocytes (Bld) [#/Vol] 1.11 10*3/uL 0.83-4.51 [facility] Lymphocytes Auto (Unsp spec) [#/Vol]Ordered By: Shayna Malhotra on 10-09-2024 Lymphocytes (Bld) [#/Vol] 0.97 10*3/uL 0.83-4.51 [facility] Lymphocytes/100 WBC Auto (Un sp spec)Ordered By: Dany Richardson on 10-09-2024 Lymphocytes/100 WBC (Bld) 16.3 % Low 19-41 [facility] Lymphocytes/100 WBC Auto (Un sp spec)Ordered By: Shayna Malhotra on 10-09-2024 Lymphocytes/100 WBC (Bld) 16.1 % Low 19-41 [facility] MCV (mean corpuscular volume ) determinationOrdered By: Dany Richardson on 10-09-2024 MCV (RBC) [Entitic vol] 87.4 fL 81-99 [facility] MCV (mean corpuscular volume ) determinationOrdered By: Shayna Malhotra on 10-09-2024 MCV (RBC) [Entitic vol] 87.4 fL 81-99 [facility] Magnesiumon 10-09-2024 Magnesium [Mass/Vol] 2.1 mg/dL Normal 1.5-2.2 [facility] Comment on above: Performed By: #### L 500.4050, L506.1000, L100.0100, L501.9985 #### [facility] [address] [place], [address] Mean corpuscular hemoglobin (MCH) determinationOrdered By: Dany Richardson on 10-09-2024 MCH (RBC) [Entitic mass] 28.9 pg 27.0-32.0 [facility] Mean corpuscular hemoglobin (MCH) determinationOrdered By: Shayna Malhotra on 10-09-2024 MCH (RBC) [Entitic mass] 28.8 pg 27.0-32.0 [facility] Mean corpuscular hemoglobin concentration (MCHC) determinationOrdered By: Dany Richardson on 10-09-2024 MCHC (RBC) [Mass/Vol] 33.1 g/dL - [facility] Mean corpuscular hemoglobin concentration (MCHC) determinationOrdered By: Shayna Malhotra on 10-09-2024 MCHC (RBC) [Mass/Vol] 33.0 g/dL - [facility] Mean platelet volume determi nationOrdered By: Dany Richardson on 10-09-2024 Platelet mean volume (Bld) [Entitic vol] 11.8 fL 6.2-12.0 [facility] Mean platelet volume determi nationOrdered By: Shayna Malhotra on 10-09-2024 Platelet mean volume (Bld) [Entitic vol] 10.8 fL 6.2-12.0 [facility] Microscopic analysis of urin e for red blood cells (RBC)Ordered By: Dany Richardson on 10-09-2024 Microscopic analysis of urine for red blood cells (RBC) 10-25 SEEN /hpf 0-5 [facility] Urine RBC 10-25 SEEN /hpf 0-5 [facility] Monocyte percentageOrdered B y: Dany Richardson on 10-09-2024 Monocytes/100 WBC (Bld) 8.3 % 0-10 [facility] Monocyte percentageOrdered B y: Shayna Malhotra on 10-09-2024 Monocytes/100 WBC (Bld) 8.4 % 0-10 [facility] Mucus LM Ql (Urine sed)Order ed By: Dany Richardson on 10-09-2024 Mucus Ql (Urine sed) 0 SEEN /hpf [facility] Neutrophil percentageOrdered By: Dany Richardson on 10-09-2024 Neutrophils/100 WBC (Bld) 72.1 % High 47-70 [facility] Neutrophil percentageOrdered By: Shayna Malhotra on 10-09-2024 Neutrophils/100 WBC (Bld) 73.5 % High 47-70 [facility] Nitrite Test strip Ql (U)Ord ered By: Dany Richardson on 10-09-2024 Nitrite Ql (U) Negative Negative [facility] No Panel InformationOrdered By: Missael Lomeli on 10-09-2024 Urine Buprenorphine Qualitative Negative < 200 ng/mL [facility] Urine Oxycodone Screen Negative < 100 ng/mL [facility] Nucleated red blood cell per centageOrdered By: Dany Richardson on 10-09-2024 Nucleated RBC/100 WBC (Bld) [Ratio] 0 % 0-5 [facility] Nucleated red blood cell per centageOrdered By: Shayna Malhotra on 10-09-2024 Nucleated RBC/100 WBC (Bld) [Ratio] 0 % 0-5 [facility] Platelet countOrdered By: Nolan Richardson on 10-09-2024 Platelets (Bld) [#/Vol] 106 10*3/uL Low 150-450 [facility] Platelet countOrdered By: Maryanne Malhotra on 10-09-2024 Platelets (Bld) [#/Vol] 107 10*3/uL Low 150-450 [facility] Potassium (Unsp spec) [Mass/ Vol]Ordered By: Dany Richardson on 10-09-2024 Potassium [Moles/Vol] 4.5 mmol/L 3.3-5.1 [facility] Comment on above: Hemolysis present, R esults could be affected. Potassium (Unsp spec) [Mass/ Vol]Ordered By: Shayna Malhotra on 10-09-2024 Potassium [Moles/Vol] 4.2 mmol/L 3.3-5.1 [facility] Potassium measurement (mass/ volume)Ordered By: Shayna Malhotra on 10-09-2024 Potassium (Unsp spec) [Mass/Vol] 4.2 mmol/L 3.3-5.1 [facility] Protein Test strip Ql (U)Ord ered By: Dany Richardson on 10-09-2024 Protein Ql (U) 30 mg/dl High Negative [facility] Quantitative urine opiates m easurementOrdered By: Missael Lomeli on 10-09-2024 Opiates Ql (U) Negative < 300 ng/mL [facility] RBC Auto (Bld) [#/Vol]Ordere d By: Dany Richardson on 10-09-2024 RBC (Bld) [#/Vol] 4.67 10*6/uL 4.2-5.4 [facility] RBC Auto (Bld) [#/Vol]Ordere d By: Shayna Malhotra on 10-09-2024 RBC (Bld) [#/Vol] 4.68 10*6/uL 4.2-5.4 [facility] Screening urine fentanyl renay surementOrdered By: Missael Lomeli on 10-09-2024 fentaNYL Screen Ql (U) Negative [facility] Serum creatinine measurement (mass/volume)Ordered By: Dany Richardson on 10-09-2024 Creatinine [Mass/Vol] 0.88 mg/dL 0.70-1.20 [facility] Serum creatinine measurement (mass/volume)Ordered By: Shayna Malhotra on 10-09-2024 Creatinine [Mass/Vol] 0.82 mg/dL 0.70-1.20 [facility] Serum globulin measurementOr dered By: Dany Richardson on 10-09-2024 Globulin (S) [Mass/Vol] 4.6 g/dL High 2.2-4.2 [facility] Serum globulin measurementOr dered By: Shayna Malhotra on 10-09-2024 Globulin (S) [Mass/Vol] 4.8 g/dL High 2.2-4.2 [facility] Serum glucose measurement (m ass/volume)Ordered By: Dany Richardson on 10-09-2024 Glucose [Mass/Vol] 138 mg/dL High 70-99 [facility] Serum glucose measurement (m ass/volume)Ordered By: Shayna Malhotra on 10-09-2024 Glucose [Mass/Vol] 173 mg/dL High 70-99 [facility] Serum or plasma C reactive p rotein measurement (mass/volume)Ordered By: Missael Lomeli on 10-09-2024 CRP [Mass/Vol] 5.92 mg/L High 0.0-3.0 [facility] Serum or plasma alanine burnette otransferase (ALT) measurementOrdered By: Dany Richardson on 10-09-2024 ALT [Catalytic activity/Vol] 23 U/L <35 [facility] Serum or plasma alanine burnette otransferase (ALT) measurementOrdered By: Shayna Malhotra on 10-09-2024 ALT [Catalytic activity/Vol] 26 U/L <35 [facility] Serum or plasma albumin kim urement (mass/volume)Ordered By: Dany Richardson on 10-09-2024 Albumin [Mass/Vol] 3.8 g/dL 3.4-4.8 [facility] Serum or plasma albumin kim urement (mass/volume)Ordered By: Shayna Malhotra on 10-09-2024 Albumin [Mass/Vol] 4.0 g/dL 3.4-4.8 [facility] Serum or plasma albumin/glob ulin mass ratioOrdered By: Dany Richardson on 10-09-2024 Albumin/Globulin [Mass ratio] 0.8 {ratio} Low 0.9-2.4 [facility] Serum or plasma albumin/glob ulin mass ratioOrdered By: Shayna Malhotra on 10-09-2024 Albumin/Globulin [Mass ratio] 0.8 {ratio} Low 0.9-2.4 [facility] Serum or plasma alkaline regina sphatase measurementOrdered By: Dany Richardson on 10-09-2024 ALP [Catalytic activity/Vol] 135 U/L High 35-104 [facility] Serum or plasma alkaline regina sphatase measurementOrdered By: Shayna Malhotra on 10-09-2024 ALP [Catalytic activity/Vol] 148 U/L High 35-104 [facility] Serum or plasma calcium kim urement (mass/volume)Ordered By: Dany Richardson on 10-09-2024 Calcium [Mass/Vol] 9.7 mg/dL 7.6-11.0 [facility] Serum or plasma calcium kim urement (mass/volume)Ordered By: Shayna Malhotra on 10-09-2024 Calcium [Mass/Vol] 9.6 mg/dL 7.6-11.0 [facility] Serum or plasma ethanol kim urement (mass/volume)Ordered By: Missael Lomeli on 10-09-2024 Ethanol [Mass/Vol] mg/dL <10.1 [facility] Comment on above: This test is for med ical purposes only. The legal definition of intoxication varies according to local law. Serum or plasma urea nitroge n measurement (mass/volume)Ordered By: Dany Richardson on 10-09-2024 Urea nitrogen [Mass/Vol] 23 mg/dL High 09-22 [facility] Serum or plasma urea nitroge n measurement (mass/volume)Ordered By: Shayna Malhotra on 10-09-2024 Urea nitrogen [Mass/Vol] 21 mg/dL High 09-22 [facility] Sodium levelOrdered By: Dany Richardson on 10-09-2024 Sodium [Moles/Vol] 138 mmol/L 133-145 [facility] Sodium levelOrdered By: Paty Malhotra on 10-09-2024 Sodium [Moles/Vol] 138 mmol/L 133-145 [facility] Squamous epithelial cells de tection in urine sediment by light microscopyOrdered By: Dany Richardson on 10-09-2024 Epithelial cells.squamous LM Ql (Urine sed) 0-5 SEEN /hpf 5-10 [facility] TSH DL <= 0.005 mIU/L QnOrde red By: Missael Lomeli on 10-09-2024 TSH Qn 4.730 uIU/mL High 0.300-4.20 0 [facility] Thyroid Stim Hormone (TSH)on 10-09-2024 TSH 4.730 uIU/mL High 0.300-4.20 0 [facility] Comment on above: Performed By: #### L 500.4050, L506.1000, L100.0100, L501.9985 #### [facility] [address] [place], [address] Total proteinOrdered By: Treasure Richardson on 10-09-2024 Protein [Mass/Vol] 8.4 g/dL 5.9-8.4 [facility] Total proteinOrdered By: Evi Malhotra on 10-09-2024 Protein [Mass/Vol] 8.9 g/dL High 5.9-8.4 [facility] Transitional cells LM Ql (Ur ine sed)Ordered By: Dany Richardson on 10-09-2024 Urine Transitional Epithelial Cells 0-5 SEEN /hpf 0-5 [facility] Transitional cells detection in urine sediment by light microscopyOrdered By: Dany Richardson on 10-09-2024 Transitional cells LM Ql (Urine sed) 0-5 SEEN /hpf 0-5 [facility] Urinalysis, Completeon 10-09 AMORPHOUS 1+ Normal [facility] Comment on above: Order Comment: 134 Performed By: #### L 500.4050, L506.1000, L100.0100, L501.9985 #### [facility] [address] [place], [address] EPI,SQUAMOUS 0-5 SEEN Normal 5-10 [facility] Comment on above: Order Comment: 134 Performed By: #### L 500.4050, L506.1000, L100.0100, L501.9985 #### [facility] [address] [place], [address] EPI,TRANSITION 0-5 SEEN Normal 0-5 [facility] Comment on above: Order Comment: 134 Performed By: #### L 500.4050, L506.1000, L100.0100, L501.9985 #### [facility] [address] [place], [address] RBC 10-25 SEEN Normal 0-5 [facility] Comment on above: Order Comment: 134 Performed By: #### L 500.4050, L506.1000, L100.0100, L501.9985 #### [facility] [address] [place], [address] BACTERIA 4+ /hpf Normal None Seen [facility] Comment on above: Order Comment: 134 Performed By: #### L 500.4050, L506.1000, L100.0100, L501.9985 #### [facility] [address] [place], [address] WBC >100 SEEN Normal 0-5 [facility] Comment on above: Order Comment: 134 Performed By: #### L 500.4050, L506.1000, L100.0100, L501.9985 #### [facility] [address] [place], [address] Mucus Ql (Urine sed) 0 SEEN Normal [facility] Comment on above: Order Comment: 134 Performed By: #### L 500.4050, L506.1000, L100.0100, L501.9985 #### [facility] [address] [place], [address] Urine Drug Screen (VISTA)on 10-09-2024 AMPHETAMINES Negative Normal <1000 ng/mL [facility] Comment on above: Order Comment: 134 Performed By: #### L 500.4050, L506.1000, L100.0100, L501.9985 #### [facility] [address] [place], [address] BARBITIURATES Negative Normal < 200 ng/mL [facility] Comment on above: Order Comment: 134 Performed By: #### L 500.4050, L506.1000, L100.0100, L501.9985 #### [facility] [address] [place], [address] BENZODIAZIPINE Negative Normal < 200 ng/mL [facility] Comment on above: Order Comment: 134 Performed By: #### L 500.4050, L506.1000, L100.0100, L501.9985 #### [facility] [address] [place], [address] BUP Ur Drug Scr Negative Normal < 200 ng/mL [facility] Comment on above: Order Comment: 134 Performed By: #### L 500.4050, L506.1000, L100.0100, L501.9985 #### [facility] [address] [place], [address] COCAINE Negative Normal < 300 ng/mL [facility] Comment on above: Order Comment: 134 Performed By: #### L 500.4050, L506.1000, L100.0100, L501.9985 #### [facility] [address] [place], [address] Fentanyl Negative Normal [facility] Comment on above: Order Comment: 134 Performed By: #### L 500.4050, L506.1000, L100.0100, L501.9985 #### [facility] [address] [place], [address] METHADONE Negative Normal < 300 ng/mL [facility] Comment on above: Order Comment: 134 Performed By: #### L 500.4050, L506.1000, L100.0100, L501.9985 #### [facility] [address] [place], [address] OPIATES Negative Normal < 300 ng/mL [facility] Comment on above: Order Comment: 134 Performed By: #### L 500.4050, L506.1000, L100.0100, L501.9985 #### [facility] [address] [place], [address] OXYCODONE Negative Normal < 100 ng/mL [facility] Comment on above: Order Comment: 134 Performed By: #### L 500.4050, L506.1000, L100.0100, L501.9985 #### [facility] [address] [place], [address] PCP Negative Normal < 25 ng/mL [facility] Comment on above: Order Comment: 134 Performed By: #### L 500.4050, L506.1000, L100.0100, L501.9985 #### [facility] [address] [place], [place], [address] THC Negative Normal < 50 ng/mL [facility] Comment on above: Order Comment: 134 Performed By: #### L 500.4050, L506.1000, L100.0100, L501.9985 #### [facility] [address] [place], [place], [id number] Urine benzodiazepine levelOr dered By: Missael Lomeli on 10-09-2024 Benzodiazepines Ql (U) Negative < 200 ng/mL [facility] Urine blood detectionOrdered By: Dany Richardson on 10-09-2024 Urine Occult Blood 150 /ul High Negative [facility] Urine clarityOrdered By: Treasure Richardson on 10-09-2024 Clarity (U) Cloudy Clear [facility] Urine cocaine levelOrdered B y: Missael Lomeli on 10-09-2024 Cocaine Ql (U) Negative < 300 ng/mL [facility] Urine color determinationOrd ered By: Dany Richardson on 10-09-2024 Color (U) Yellow Yellow [facility] Urine [id number] abinol (THC) measurementOrdered By: Missael Lomeli on 10-09-2024 Cannabinoids Screen Ql (U) Negative < 50 ng/mL [facility] Urine glucose detectionOrder ed By: Dany Richardson on 10-09-2024 Glucose Ql (U) 1000 mg/dl High Normal [facility] Urine leukocyte esterase det ection by dipstickOrdered By: Dany Richardson on 10-09-2024 Leukocyte esterase Test strip Ql (U) 100 /ul High Negative [facility] Urine pHOrdered By: Dany chung on 10-09-2024 pH (U) 5.0 [pH] 5.0 - 8.0 [facility] Urine phencyclidine (PCP) de tectionOrdered By: Missael Lomeli on 10-09-2024 Phencyclidine Ql (U) Negative < 25 ng/mL [facility] Urine sediment bacteria coun t by microscopy (number/high power field)Ordered By: Dany Richardson on 10-09-2024 Bacteria LM.HPF (Urine sed) [#/Area] 4 /[HPF] None Seen [facility] Urine specific gravity measu rementOrdered By: Dany Richardson on 10-09-2024 Specific gravity (U) [Rel density] 1.020 1.002-1.03 0 [facility] Urine urobilinogen measureme ntOrdered By: Dany Richardson on 10-09-2024 Urobilinogen Ql (U) 1 mg/dl High Normal [facility] Urobilinogen Ql (U)Ordered B y: Dany Richardson on 10-09-2024 Urobilinogen (U) [Mass/Vol] 1 mg/dL High Normal [facility] Vitamin B12on 10-09-2024 Cobalamin (Vitamin B12) [Mass/Vol] 379 pg/mL Normal 180-914 [facility] Comment on above: Performed By: #### L 503.0106 #### [facility] [address] [place] [address], [address] Vitamin B12 ser/plasOrdered By: Missael Lomeli on 10-09-2024 Cobalamin (Vitamin B12) [Mass/Vol] 379 pg/mL 180-914 [facility] Vitamin D, 25-hydroxyOrdered By: Shayna Malhotra on 10-09-2024 Vitamin D 25-Hydroxy 30.0 ng/mL 30-100 [facility] Comment on above: Vitamin D StatusDefi ciency: <20 ng/mL (50nmol/L)Insufficiency: 20-30 ng/mL (50-75 nmol/L)Sufficiency: 30-100 ng/mL (75-250 nmol/L)Toxicity: >100 ng/mL (>250 nmol/L) Vitamin D,25 Hydroxyon 10-09 Vitamin D 25-OH 30.0 ng/mL Normal 30-100 [facility] Comment on above: Order Comment: 134 Result Comment: Maricarmen min D Status Deficiency: <20 ng/mL (50nmol/L) Insufficiency: 20-30 ng/mL (50-75 nmol/L) Sufficiency: 30-100 ng/mL (75-250 nmol/L) Toxicity: >100 ng/mL (>250 nmol/L) Performed By: #### L 500.4050, L506.1000, L100.0100, L501.9985 #### [facility] [address] [place], [address] White blood cell (WBC) count Ordered By: Dany Richardson on 10-09-2024 WBC (Bld) [#/Vol] 6.8 10*3/uL 4.4-11.0 [facility] White blood cell (WBC) count Ordered By: Shayna Malhotra on 10-09-2024 WBC (Bld) [#/Vol] 6.0 10*3/uL 4.4-11.0 [facility] White blood cell countOrdere d By: Dany Richardson on 10-09-2024 Urine WBC >100 SEEN /hpf 0-5 [facility] White blood cell count >100 SEEN /hpf 0-5 [facility] CBC W/Diff, Automatedon Absolute Neut Normal 2.0-7.7 [facility] Comment on above: Order Comment: 134 Result Comment: UTO X2 Performed By: #### L 506.1000, L100.0100, L501.9985, L500.4050 #### [facility] [address] [place], [address] HCT Normal 37-47 [facility] Comment on above: Order Comment: 134 Result Comment: UTO X2 Performed By: #### L 506.1000, L100.0100, L501.9985, L500.4050 #### [facility] [address] [place], [address] HGB Normal 12.0-15.0 [facility] Comment on above: Order Comment: 134 Result Comment: UTO X2 Performed By: #### L 506.1000, L100.0100, L501.9985, L500.4050 #### [facility] [address] [place], [address] MCH Normal 27.0-32.0 [facility] Comment on above: Order Comment: 134 Result Comment: UTO X2 Performed By: #### L 506.1000, L100.0100, L501.9985, L500.4050 #### [facility] [address] [place], [address] MCHC Normal 32-36 [facility] Comment on above: Order Comment: 134 Result Comment: UTO X2 Performed By: #### L 506.1000, L100.0100, L501.9985, L500.4050 #### [facility] [address] [place], [address] MCV Normal 81-99 [facility] Comment on above: Order Comment: 134 Result Comment: UTO X2 Performed By: #### L 506.1000, L100.0100, L501.9985, L500.4050 #### [facility] [address] [place], [address] NEUT% Normal 47-70 [facility] Comment on above: Order Comment: 134 Result Comment: UTO X2 Performed By: #### L 506.1000, L100.0100, L501.9985, L500.4050 #### [facility] [address] [place], [address] PLT Normal 150-450 [facility] Comment on above: Order Comment: 134 Result Comment: UTO X2 Performed By: #### L 506.1000, L100.0100, L501.9985, L500.4050 #### [facility] [address] [place], [address] RBC Normal 4.2-5.4 [facility] Comment on above: Order Comment: 134 Result Comment: UTO X2 Performed By: #### L 506.1000, L100.0100, L501.9985, L500.4050 #### [facility] [address] [place], [address] RDW CV Normal 11.6-14.6 [facility] Comment on above: Order Comment: 134 Result Comment: UTO X2 Performed By: #### L 506.1000, L100.0100, L501.9985, L500.4050 #### [facility] [address] [place], [address] RDW SD Normal 35.1-43.9 [facility] Comment on above: Order Comment: 134 Result Comment: UTO X2 Performed By: #### L 506.1000, L100.0100, L501.9985, L500.4050 #### [facility] [address] [place], [address] WBC Normal 4.4-11.0 [facility] Comment on above: Order Comment: 134 Result Comment: UTO X2 Performed By: #### L 506.1000, L100.0100, L501.9985, L500.4050 #### [facility] [address] [place], [address] Comprehensive Metabolic Prof vton 10-08-2024 ALB Normal 3.4-4.8 [facility] Comment on above: Order Comment: 134 Result Comment: UTO X2 Performed By: #### L 506.1000, L100.0100, L501.9985, L500.4050 #### [facility] [address] [place], [address] ALK PHOS Normal 35-104 [facility] Comment on above: Order Comment: 134 Result Comment: UTO X2 Performed By: #### L 506.1000, L100.0100, L501.9985, L500.4050 #### [facility] [address] [place], [address] ALT Normal <=34 [facility] Comment on above: Order Comment: 134 Result Comment: UTO X2 Performed By: #### L 506.1000, L100.0100, L501.9985, L500.4050 #### [facility] [address] [place], [address] AST Normal <=31 [facility] Comment on above: Order Comment: 134 Result Comment: UTO X2 Performed By: #### L 506.1000, L100.0100, L501.9985, L500.4050 #### [facility] [address] [place], [address] BUN Normal 4-19 [facility] Comment on above: Order Comment: 134 Result Comment: UTO X2 Performed By: #### L 506.1000, L100.0100, L501.9985, L500.4050 #### [facility] [address] [place], [address] BUN/CRE Normal 10-20 [facility] Comment on above: Order Comment: 134 Result Comment: UTO X2 Performed By: #### L 506.1000, L100.0100, L501.9985, L500.4050 #### [facility] [address] [place], [address] Calcium Normal 7.6-11.0 [facility] Comment on above: Order Comment: 134 Result Comment: UTO X2 Performed By: #### L 506.1000, L100.0100, L501.9985, L500.4050 #### [facility] [address] [place], [address] CL Normal 98-108 [facility] Comment on above: Order Comment: 134 Result Comment: UTO X2 Performed By: #### L 506.1000, L100.0100, L501.9985, L500.4050 #### [facility] [address] [place], [address] CO2 Normal 21.0-32.0 [facility] Comment on above: Order Comment: 134 Result Comment: UTO X2 Performed By: #### L 506.1000, L100.0100, L501.9985, L500.4050 #### [facility] [address] [place], [address] CREAT,SERUM Normal 0.70-1.20 [facility] Comment on above: Order Comment: 134 Result Comment: UTO X2 Performed By: #### L 506.1000, L100.0100, L501.9985, L500.4050 #### [facility] [address] [place], [address] eGFR Normal >60 [facility] Comment on above: Order Comment: 134 Result Comment: UTO X2 Performed By: #### L 506.1000, L100.0100, L501.9985, L500.4050 #### [facility] [address] [place], [address] GAP Normal 5-15 [facility] Comment on above: Order Comment: 134 Result Comment: UTO X2 Performed By: #### L 506.1000, L100.0100, L501.9985, L500.4050 #### [facility] [address] [place], [address] GLU Normal 70-99 [facility] Comment on above: Order Comment: 134 Result Comment: UTO X2 Performed By: #### L 506.1000, L100.0100, L501.9985, L500.4050 #### [facility] [address] [place], [address] Potassium Normal 3.3-5.1 [facility] Comment on above: Order Comment: 134 Result Comment: UTO X2 Performed By: #### L 506.1000, L100.0100, L501.9985, L500.4050 #### [facility] [address] [place], [address] T BILI Normal 0.00-1.30 [facility] Comment on above: Order Comment: 134 Result Comment: UTO X2 Performed By: #### L 506.1000, L100.0100, L501.9985, L500.4050 #### [facility] [address] [place], [address] T PROT Normal 5.9-8.4 [facility] Comment on above: Order Comment: 134 Result Comment: UTO X2 Performed By: #### L 506.1000, L100.0100, L501.9985, L500.4050 #### [facility] [address] [place], [address] Comprehensive Metabolic Profil Normal 133-145 [facility] Comment on above: Order Comment: 134 Result Comment: UTO X2 Performed By: #### L 506.1000, L100.0100, L501.9985, L500.4050 #### [facility] [address] [place], [address] 20-IU-Vfmmvcz DOrdered By: Jean Malhotra on 07-09-2024 Vitamin D 25-Hydroxy 44.8 ng/mL [facility] Comment on above: Vitamin D 25(OH) Sta tus Range Deficiency <20 ng/mL (50nmol/L) Insufficiency 20 - 30 ng/mL (50 - 75 nmol/L) Sufficiency 30 - 100 ng/mL (75 - 250 nmol/L) Toxicity >100 ng/mL (>250 nmol/L) Absolute lymphocyte countOrd ered By: Shayna Malhotra on 07-09-2024 Lymphocytes Auto (Unsp spec) [#/Vol] 0.82 10*3/uL Low 0.83-4.51 [facility] Absolute neutrophil countOrd ered By: Shayna Malhotra on 07-09-2024 Neutrophils (Bld) [#/Vol] 2.6 10*3/uL 2.0-7.7 [facility] Albumin to globulin ratioOrd ered By: Shayna Malhotra on 07-09-2024 Albumin/Globulin [Mass ratio] 0.6 {ratio} Low 0.9-2.4 [facility] Automated lymphocyte count a s percentage of total leukocytesOrdered By: Shayna Suazochner on 07-09-2024 Lymphocytes/100 WBC Auto (Unsp spec) 20.2 % 19-41 [facility] Basophil percentageOrdered B y: Shayna Marya on 07-09-2024 Basophils/100 WBC (Bld) 1.0 % 0-1 [facility] Bilirubin, totalOrdered By: Shayna Malhorta on 07-09-2024 Bilirubin [Mass/Vol] 0.70 mg/dL 0.20-1.00 [facility] Comment on above: For patients on eltr ombopag therapy, use of Dimension [place] TBIL is not recommended. Blood urea nitrogen (BUN)/cr eatinine ratioOrdered By: Shayna Malhotra on 07-09-2024 Urea nitrogen/Creatinine [Mass ratio] 22.2 mg/mg High 10-20 [facility] CBC W/Diff, Automatedon - Absolute Lymph 0.82 X10 3/uL Low 0.83-4.51 [facility] Comment on above: Order Comment: 134 Performed By: #### L 500.4050, L506.1000, L100.0100, L501.9985 #### [facility] [address] [place], [address] Absolute Neut 2.6 X10 3/uL Normal 2.0-7.7 [facility] Comment on above: Order Comment: 134 Performed By: #### L 500.4050, L506.1000, L100.0100, L501.9985 #### [facility] [address] [place], [address] Basophils/100 WBC (Bld) 1.0 % Normal 0-1 [facility] Comment on above: Order Comment: 134 Performed By: #### L 500.4050, L506.1000, L100.0100, L501.9985 #### [facility] [address] [place], [address] Eosinophils/100 WBC (Bld) 5.9 % High 0-5 [facility] Comment on above: Order Comment: 134 Performed By: #### L 500.4050, L506.1000, L100.0100, L501.9985 #### [facility] [address] [place], [address] Erythrocyte distribution width (RBC) [Ratio] 15.9 % High 11.6-14.6 [facility] Comment on above: Order Comment: 134 Performed By: #### L 500.4050, L506.1000, L100.0100, L501.9985 #### [facility] [address] [place], [address] Hematocrit (Bld) [Volume fraction] 38.2 % Normal 37-47 [facility] Comment on above: Order Comment: 134 Performed By: #### L 500.4050, L506.1000, L100.0100, L501.9985 #### [facility] [address] [place], [address] Hemoglobin (Bld) [Mass/Vol] 12.4 g/dL Normal 12.0-15.0 [facility] Comment on above: Order Comment: 134 Performed By: #### L 500.4050, L506.1000, L100.0100, L501.9985 #### [facility] [address] [place], [address] IG% 0.200 Normal 0.0-0.9 [facility] Comment on above: Order Comment: 134 Result Comment: IG% - Immature Granulocytes (promyelocytes, myelocytes and metamyelocytes) > 1% indicates that a LEFT SHIFT is Present. Performed By: #### L 500.4050, L506.1000, L100.0100, L501.9985 #### [facility] [address] [place], [address] Lymphocytes/100 WBC (Bld) 20.2 % Normal 19-41 [facility] Comment on above: Order Comment: 134 Performed By: #### L 500.4050, L506.1000, L100.0100, L501.9985 #### [facility] [address] [place], [address] MCH (RBC) [Entitic mass] 29.0 pg Normal 27.0-32.0 [facility] Comment on above: Order Comment: 134 Performed By: #### L 500.4050, L506.1000, L100.0100, L501.9985 #### [facility] [address] [place], [address] MCHC (RBC) [Mass/Vol] 32.5 g/dL Normal 32-36 [facility] Comment on above: Order Comment: 134 Performed By: #### L 500.4050, L506.1000, L100.0100, L501.9985 #### [facility] [address] [place], [address] MCV (RBC) [Entitic vol] 89.5 fL Normal 81-99 [facility] Comment on above: Order Comment: 134 Performed By: #### L 500.4050, L506.1000, L100.0100, L501.9985 #### [facility] [address] [place], [address] Monocytes/100 WBC (Bld) 9.6 % Normal 0-10 [facility] Comment on above: Order Comment: 134 Performed By: #### L 500.4050, L506.1000, L100.0100, L501.9985 #### [facility] [address] [place], [address] Neutrophils/100 WBC (Bld) 63.1 % Normal 47-70 [facility] Comment on above: Order Comment: 134 Performed By: #### L 500.4050, L506.1000, L100.0100, L501.9985 #### [facility] [address] [place], [address] Nucleated RBC (Bld) [#/Vol] 0 10*3/uL Normal 0-5 [facility] Comment on above: Order Comment: 134 Performed By: #### L 500.4050, L506.1000, L100.0100, L501.9985 #### [facility] [address] [place], [address] Platelet mean volume (Bld) [Entitic vol] 11.0 fL Normal 6.2-12.0 [facility] Comment on above: Order Comment: 134 Performed By: #### L 500.4050, L506.1000, L100.0100, L501.9985 #### [facility] [address] [place], [address] Platelets (Bld) [#/Vol] 116 10*3/uL Low 150-450 [facility] Comment on above: Order Comment: 134 Performed By: #### L 500.4050, L506.1000, L100.0100, L501.9985 #### [facility] [address] [place], [address] RBC (Bld) [#/Vol] 4.27 10*6/uL Normal 4.2-5.4 [facility] Comment on above: Order Comment: 134 Performed By: #### L 500.4050, L506.1000, L100.0100, L501.9985 #### [facility] [address] [place], [address] RDW SD 52.1 fl High 35.1-43.9 [facility] Comment on above: Order Comment: 134 Performed By: #### L 500.4050, L506.1000, L100.0100, L501.9985 #### [facility] [address] [place], [address] WBC (Bld) [#/Vol] 4.1 10*3/uL Low 4.4-11.0 [facility] Comment on above: Order Comment: 134 Performed By: #### L 500.4050, L506.1000, L100.0100, L501.9985 #### [facility] [address] [place], [address] Carbon dioxide measurementOr dered By: Shayna Malhotra on 07-09-2024 CO2 [Moles/Vol] 25.0 mmol/L 21.0-32.0 [facility] Chloride measurementOrdered By: Shayna Malhotra on 07-09-2024 Chloride [Moles/Vol] 107 mmol/L 98-107 [facility] Comprehensive Metabolic Prof ilon 07-09-2024 Albumin [Mass/Vol] 3.1 g/dL Low 3.2-5.0 [facility] Comment on above: Order Comment: 134 Performed By: #### L 500.4050, L506.1000, L100.0100, L501.9985 #### [facility] [address] [place], [address] Albumin/Globulin [Mass ratio] 0.6 {ratio} Low 0.9-2.4 [facility] Comment on above: Order Comment: 134 Performed By: #### L 500.4050, L506.1000, L100.0100, L501.9985 #### [facility] [address] [place], [address] ALK P 126 U/L High 45-117 [facility] Comment on above: Order Comment: 134 Performed By: #### L 500.4050, L506.1000, L100.0100, L501.9985 #### [facility] [address] [place], [address] ALT [Catalytic activity/Vol] 27 U/L Normal 13-56 [facility] Comment on above: Order Comment: 134 Performed By: #### L 500.4050, L506.1000, L100.0100, L501.9985 #### [facility] [address] [place], [address] AST [Catalytic activity/Vol] 35 U/L Normal 15-37 [facility] Comment on above: Order Comment: 134 Performed By: #### L 500.4050, L506.1000, L100.0100, L501.9985 #### [facility] [address] [place], [address] Bilirubin [Mass/Vol] 0.70 mg/dL Normal 0.20-1.00 [facility] Comment on above: Order Comment: 134 Result Comment: For patients on eltrombopag therapy, use of Dimension [place] TBIL is not recommended. Performed By: #### L 500.4050, L506.1000, L100.0100, L501.9985 #### [facility] [address] [place], [address] BUN/CRE 22.2 RATIO High 10-20 [facility] Comment on above: Order Comment: 134 Performed By: #### L 500.4050, L506.1000, L100.0100, L501.9985 #### [facility] [address] [place], [address] CA,Total 9.3 mg/dL Normal 8.5-10.1 [facility] Comment on above: Order Comment: 134 Performed By: #### L 500.4050, L506.1000, L100.0100, L501.9985 #### [facility] [address] [place], [address] Chloride [Moles/Vol] 107 mmol/L Normal 98-107 [facility] Comment on above: Order Comment: 134 Performed By: #### L 500.4050, L506.1000, L100.0100, L501.9985 #### [facility] [address] [place], [address] CO2 [Moles/Vol] 25.0 mmol/L Normal 21.0-32.0 [facility] Comment on above: Order Comment: 134 Performed By: #### L 500.4050, L506.1000, L100.0100, L501.9985 #### [facility] [address] [place], [address] Creatinine [Mass/Vol] 0.76 mg/dL Normal 0.55-1.02 [facility] Comment on above: Order Comment: 134 Result Comment: The validity of the calculated GFR GFRAA in patients over 70 years has not been determined. Clinical correlation is essential. Performed By: #### L 500.4050, L506.1000, L100.0100, L501.9985 #### [facility] [address] [place], [address] EST GFR - AA 96 mL/min Normal >60 [facility] Comment on above: Order Comment: 134 Result Comment: Afri can [place] GFR Calc Performed By: #### L 500.4050, L506.1000, L100.0100, L501.9985 #### [facility] [address] [place], [address] GAP 5 Normal 5-15 [facility] Comment on above: Order Comment: 134 Performed By: #### L 500.4050, L506.1000, L100.0100, L501.9985 #### [facility] [address] [place], [address] GFR/1.73 sq M.predicted among non-blacks MDRD (S/P/Bld) [Vol rate/Area] 79 mL/min/{1.73_m2} Normal >60 [facility] Comment on above: Order Comment: 134 Result Comment: Non- GFR Calc Performed By: #### L 500.4050, L506.1000, L100.0100, L501.9985 #### [facility] [address] [place], [address] Globulin (S) [Mass/Vol] 4.9 g/dL High 2.2-4.2 [facility] Comment on above: Order Comment: 134 Performed By: #### L 500.4050, L506.1000, L100.0100, L501.9985 #### [facility] [address] [place], [address] Glucose [Mass/Vol] 168 mg/dL High 74-106 [facility] Comment on above: Order Comment: 134 Result Comment: Fast ing Glucose result greater than or equal to 126 mg/dL suggests DIABETES MELLITUS per A.D.A. criteria. Performed By: #### L 500.4050, L506.1000, L100.0100, L501.9985 #### [facility] [address] [place], [address] Potassium [Moles/Vol] 4.2 mmol/L Normal 3.5-5.1 [facility] Comment on above: Order Comment: 134 Performed By: #### L 500.4050, L506.1000, L100.0100, L501.9985 #### [facility] [address] [place], [address] Sodium [Moles/Vol] 137 mmol/L Normal 136-145 [facility] Comment on above: Order Comment: 134 Performed By: #### L 500.4050, L506.1000, L100.0100, L501.9985 #### [facility] [address] [place], [address] T PROT 8.0 g/dL Normal 6.4-8.2 [facility] Comment on above: Order Comment: 134 Performed By: #### L 500.4050, L506.1000, L100.0100, L501.9985 #### [facility] [address] [place], [address] Urea nitrogen [Mass/Vol] 17 mg/dL Normal 7-18 [facility] Comment on above: Order Comment: 134 Performed By: #### L 500.4050, L506.1000, L100.0100, L501.9985 #### [facility] [address] [place], [address] Eosinophil percentageOrdered By: Shayna Malhotra on 07-09-2024 Eosinophils/100 WBC (Bld) 5.9 % High 0-5 [facility] Erythrocyte distribution wid th (RBC) [Ratio]Ordered By: Shayna Malhotra on 07-09-2024 Erythrocyte distribution width (RBC) [Entitic vol] 52.1 fL High 35.1-43.9 [facility] Erythrocyte distribution wid th ratioOrdered By: Shayna Malhotra on 07-09-2024 Erythrocyte distribution width (RBC) [Ratio] 15.9 % High 11.6-14.6 [facility] Erythrocyte distribution wid th standard deviationOrdered By: Shaynadesi Malhotra on 07-09-2024 Erythrocyte distribution width (RBC) [Ratio] 52.1 fl High 35.1-43.9 [facility] Estimated glomerular filtrat ion rate (GFR) AmericanOrdered By: Shayna Malhotra on 07-09-2024 Estimated GFR (MDRD) Amer 96 mL/min >60 [facility] Comment on above: GFR Calc Glomerular filtration rate ( GFR) estimationOrdered By: Shayna Malhotra on 07-09-2024 Estimated GFR (MDRD) Non-Af Amer 79 mL/min >60 [facility] Comment on above: Non- GFR Calc GFR/1.73 sq M.predicted among non-blacks MDRD (S/P/Bld) [Vol rate/Area] 79 mL/min/{1.73_m2} >60 [facility] Comment on above: Non- GFR Calc Glucose measurementOrdered B y: Shayna Malhotra on 07-09-2024 Glucose [Mass/Vol] 168 mg/dL High 74-106 [facility] Comment on above: Fasting Glucose resu lt greater than or equal to 126 mg/dL suggests DIABETES MELLITUS per A.D.A. criteria. Hematocrit Auto (Bld) [Volum e fraction]Ordered By: Shayna Malhotra on 07-09-2024 Hematocrit (Bld) [Volume fraction] 38.2 % 37-47 [facility] Hemoglobin A1con 07-09-2024 HbA1c (Bld) [Mass fraction] 6.6 % High 3.8-5.6 [facility] Comment on above: Order Comment: 134 Result Comment: Norm al < 5.7 % Prediabetic 5.7 - 6.4 % Diabetic >or= 6.5 % Please note range changes. Performed By: #### L 500.4050, L506.1000, L100.0100, L501.9985 #### [facility] [address] [place], [address] Hemoglobin A1c percentageOrd ered By: Shayna Malhotra on 07-09-2024 HbA1c (Bld) [Mass fraction] 6.6 % High 3.8-5.6 [facility] Comment on above: Normal < 5.7 % Predi abetic 5.7 - 6.4 % Diabetic >or= 6.5 % Please note range changes. Hemoglobin measurementOrdere d By: Shayna Malhotra on 07-09-2024 Hemoglobin (Bld) [Mass/Vol] 12.4 g/dL 12.0-15.0 [facility] Immature granulocytes/100 WB C Auto (Bld)Ordered By: Shayna Malhotra on 07-09-2024 Immature granulocytes/100 WBC (Bld) 0.200 % 0.0-0.9 [facility] Comment on above: IG% - Immature Granu locytes (promyelocytes, myelocytes and metamyelocytes) > 1% indicates that a LEFT SHIFT is Present. Laboratory - Chemistry and C hemistry - challengeOrdered By: Shayna Malhotra on 07-09-2024 AST [Catalytic activity/Vol] 35 U/L 15-37 [facility] Lymphocytes Auto (Unsp spec) [#/Vol]Ordered By: Shayna Malhotra on 07-09-2024 Lymphocytes (Bld) [#/Vol] 0.82 10*3/uL Low 0.83-4.51 [facility] Lymphocytes/100 WBC Auto (Un sp spec)Ordered By: Shayna Malhotra on 07-09-2024 Lymphocytes/100 WBC (Bld) 20.2 % 19-41 [facility] MCV (mean corpuscular volume ) determinationOrdered By: Shayna Malhotra on 07-09-2024 MCV (RBC) [Entitic vol] 89.5 fL 81-99 [facility] Mean corpuscular hemoglobin (MCH) determinationOrdered By: Shayna Malhotra on 07-09-2024 MCH (RBC) [Entitic mass] 29.0 pg 27.0-32.0 [facility] Mean corpuscular hemoglobin concentration (MCHC) determinationOrdered By: Shayna Malhotra on 07-09-2024 MCHC (RBC) [Mass/Vol] 32.5 g/dL 32-36 [facility] Mean platelet volume determi nationOrdered By: Shayna Malhotra on 07-09-2024 Platelet mean volume (Bld) [Entitic vol] 11.0 fL 6.2-12.0 [facility] Monocyte percentageOrdered B y: Shayna Malhotra on 07-09-2024 Monocytes/100 WBC (Bld) 9.6 % 0-10 [facility] Neutrophil percentageOrdered By: Shayna Malhotra on 07-09-2024 Neutrophils/100 WBC (Bld) 63.1 % 47-70 [facility] Nucleated red blood cell per centageOrdered By: Shayna Malhotra on 07-09-2024 Nucleated RBC/100 WBC (Bld) [Ratio] 0 % 0-5 [facility] Platelet countOrdered By: Maryanne Malhotra on 07-09-2024 Platelets (Bld) [#/Vol] 116 10*3/uL Low 150-450 [facility] Potassium measurementOrdered By: Shayna Malhotra on 07-09-2024 Potassium [Moles/Vol] 4.2 mmol/L 3.5-5.1 [facility] RBC Auto (Bld) [#/Vol]Ordere d By: Shayna Malhotra on 07-09-2024 RBC (Bld) [#/Vol] 4.27 10*6/uL 4.2-5.4 [facility] Serum anion gap measurementO rdered By: Shayna Malhotra on 07-09-2024 Anion gap [Moles/Vol] 5 mmol/L 5-15 [facility] Serum globulin measurementOr dered By: Shayna Malhotra on 07-09-2024 Globulin (S) [Mass/Vol] 4.9 g/dL High 2.2-4.2 [facility] Serum or plasma alanine burnette otransferase (ALT) measurementOrdered By: Shayna Malhorta on 07-09-2024 ALT [Catalytic activity/Vol] 27 U/L 13-56 [facility] Serum or plasma albumin kim urement (mass/volume)Ordered By: Shayna Malhotra on 07-09-2024 Albumin [Mass/Vol] 3.1 g/dL Low 3.2-5.0 [facility] Serum or plasma alkaline regina sphatase measurementOrdered By: Shayna Malhotra on 07-09-2024 ALP [Catalytic activity/Vol] 126 U/L High 45-117 [facility] Serum or plasma calcium kim urement (mass/volume)Ordered By: Shayna Malhotra on 07-09-2024 Calcium [Mass/Vol] 9.3 mg/dL 8.5-10.1 [facility] Serum or plasma creatinine m easurement (mass/volume)Ordered By: Shayna Malhotra on 07-09-2024 Creatinine [Mass/Vol] 0.76 mg/dL 0.55-1.02 [facility] Comment on above: The validity of the calculated GFR & GFRAA in patients over 70 years has not been determined. Clinical correlation is essential. Serum or plasma urea nitroge n measurement (mass/volume)Ordered By: Shayna Malhotra on 07-09-2024 Urea nitrogen [Mass/Vol] 17 mg/dL 7-18 [facility] Sodium levelOrdered By: Paty Malhotra on 07-09-2024 Sodium [Moles/Vol] 137 mmol/L 136-145 [facility] Total proteinOrdered By: Evi Malhotra on 07-09-2024 Protein [Mass/Vol] 8.0 g/dL 6.4-8.2 [facility] Vitamin D,25 Hydroxyon 07-09 Vitamin D 25-OH 44.8 ng/mL Normal [facility] Comment on above: Order Comment: 134 Result Comment: Maricarmen min D 25(OH) Status Range Deficiency <20 ng/mL (50nmol/L) Insufficiency 20 - 30 ng/mL (50 - 75 nmol/L) Sufficiency 30 - 100 ng/mL (75 - 250 nmol/L) Toxicity >100 ng/mL (>250 nmol/L) Performed By: #### L 500.4050, L506.1000, L100.0100, L501.9985 #### [facility] [address] [place], [address] White blood cell (WBC) count Ordered By: Shayna Malhotra on 07-09-2024 WBC (Bld) [#/Vol] 4.1 10*3/uL Low 4.4-11.0 [facility] MR/BMS.Bon 07-04-2024 MR/BMS.[facility] [address] [place] [address] OFFICE VISIT Date of Service: 07/04/24 MR#: [id number] Acct: [id number] Name: VIDA NINA Rep #: [id number] : 1950 Provider: Dr. Shayna gomes MD Age/Sex: 73/F Location: [facility] Status: Signed Intake Vital Signs 05/28/24 [...] Ankle Pain Chief Complaint: L ankle pain Supervisor Sound Technician Required: No Accompanied by: Self Is patient [...] TID #0 grams 11/24/21 07/04/24 Rx powder ([facility]) quetiapine 100 mg tablet 300 mg (3 [...] a c (more content not included)... Normal [facility] MR/BMS.IMBon 05-28-2024 MR/BMS.IMB [facility] [address] [place] [address] OFFICE VISIT Date of Service: 05/28/24 MR#: [id number] Acct: [id number] Name: VIDA NINA Rep #: [id number] : 1950 Provider: Dr. Shayna gomes MD Age/Sex: 73/F Location: [facility] Status: Signed Intake Vital Signs 01/09/23 17:15 [...] Intake Visit Reasons: Annual/Physical Chief Complaint: annual/physical Supervisor Sound Technician Required: No Accompanied by: Self Is patient [...] History powder [facility] History Lite Strips[facility] 05/28/24 History Lite Meter kit) [facility]24 History Lancets) nystatin 100,000 unit/gram topical 1 applic topical TID #0 grams 11/24/21 05/28/24 Rx powder ([facility]) quetiapine 100 mg tablet 300 mg (3 [...] here in the office. She lives at [facility]. She checked herself in there a few years ago as she felt it was in (more content not included)... Normal [facility] CBC W/Diff, Automatedon 11-0 Absolute Lymph 0.98 X10 3/uL Normal 0.83-4.51 [facility] Comment on above: Order Comment: 134 Performed By: #### L 500.4050, L506.1000, L100.0100, L501.9985 #### [facility] [address] [place], [place], [id number] Absolute Neut 2.6 X10 3/uL Normal 2.0-7.7 [facility] Comment on above: Order Comment: 134 Performed By: #### L 500.4050, L506.1000, L100.0100, L501.9985 #### [facility] [address] [place], [address] Basophils/100 WBC (Bld) 0.7 % Normal 0-1 [facility] Comment on above: Order Comment: 134 Performed By: #### L 500.4050, L506.1000, L100.0100, L501.9985 #### [facility] [address] [place], [address] Eosinophils/100 WBC (Bld) 4.1 % Normal 0-5 [facility] Comment on above: Order Comment: 134 Performed By: #### L 500.4050, L506.1000, L100.0100, L501.9985 #### [facility] [address] [place], [address] Erythrocyte distribution width (RBC) [Ratio] 15.2 % High 11.6-14.6 [facility] Comment on above: Order Comment: 134 Performed By: #### L 500.4050, L506.1000, L100.0100, L501.9985 #### [facility] [address] [place], [address] Hematocrit (Bld) [Volume fraction] 39.8 % Normal 37-47 [facility] Comment on above: Order Comment: 134 Performed By: #### L 500.4050, L506.1000, L100.0100, L501.9985 #### [facility] [address] [place], [address] Hemoglobin (Bld) [Mass/Vol] 12.5 g/dL Normal 12.0-15.0 [facility] Comment on above: Order Comment: 134 Performed By: #### L 500.4050, L506.1000, L100.0100, L501.9985 #### [facility] [address] [place], [address] IG% 0.200 Normal 0.0-0.9 [facility] Comment on above: Order Comment: 134 Result Comment: IG% - Immature Granulocytes (promyelocytes, myelocytes and metamyelocytes) > 1% indicates that a LEFT SHIFT is Present. Performed By: #### L 500.4050, L506.1000, L100.0100, L501.9985 #### [facility] [address] [place], [address] Lymphocytes/100 WBC (Bld) 23.9 % Normal 19-41 [facility] Comment on above: Order Comment: 134 Performed By: #### L 500.4050, L506.1000, L100.0100, L501.9985 #### [facility] [address] [place], [address] MCH (RBC) [Entitic mass] 28.4 pg Normal 27.0-32.0 [facility] Comment on above: Order Comment: 134 Performed By: #### L 500.4050, L506.1000, L100.0100, L501.9985 #### [facility] [address] [place], [address] MCHC (RBC) [Mass/Vol] 31.4 g/dL Low 32-36 [facility] Comment on above: Order Comment: 134 Performed By: #### L 500.4050, L506.1000, L100.0100, L501.9985 #### [facility] [address] [place], [address] MCV (RBC) [Entitic vol] 90.5 fL Normal 81-99 [facility] Comment on above: Order Comment: 134 Performed By: #### L 500.4050, L506.1000, L100.0100, L501.9985 #### [facility] [address] [place], [address] Monocytes/100 WBC (Bld) 8.5 % Normal 0-10 [facility] Comment on above: Order Comment: 134 Performed By: #### L 500.4050, L506.1000, L100.0100, L501.9985 #### [facility] [address] [place], [address] Neutrophils/100 WBC (Bld) 62.6 % Normal 47-70 [facility] Comment on above: Order Comment: 134 Performed By: #### L 500.4050, L506.1000, L100.0100, L501.9985 #### [facility] [address] [place], [address] Nucleated RBC (Bld) [#/Vol] 0 10*3/uL Normal 0-5 [facility] Comment on above: Order Comment: 134 Performed By: #### L 500.4050, L506.1000, L100.0100, L501.9985 #### [facility] [address] [place], [address] Platelet mean volume (Bld) [Entitic vol] 11.4 fL Normal 6.2-12.0 [facility] Comment on above: Order Comment: 134 Performed By: #### L 500.4050, L506.1000, L100.0100, L501.9985 #### [facility] [address] [place], [address] Platelets (Bld) [#/Vol] 107 10*3/uL Low 150-450 [facility] Comment on above: Order Comment: 134 Performed By: #### L 500.4050, L506.1000, L100.0100, L501.9985 #### [facility] [address] [place], [address] RBC (Bld) [#/Vol] 4.40 10*6/uL Normal 4.2-5.4 [facility] Comment on above: Order Comment: 134 Performed By: #### L 500.4050, L506.1000, L100.0100, L501.9985 #### [facility] [address] [place], [address] RDW SD 50.8 fl High 35.1-43.9 [facility] Comment on above: Order Comment: 134 Performed By: #### L 500.4050, L506.1000, L100.0100, L501.9985 #### [facility] [address] [place], [address] WBC (Bld) [#/Vol] 4.1 10*3/uL Low 4.4-11.0 [facility] Comment on above: Order Comment: 134 Performed By: #### L 500.4050, L506.1000, L100.0100, L501.9985 #### [facility] [address] [place], [address] Comprehensive Metabolic Prof ilon 04-09-2024 Albumin [Mass/Vol] 3.1 g/dL Low 3.2-5.0 [facility] Comment on above: Order Comment: 134 Performed By: #### L 500.4050, L506.1000, L100.0100, L501.9985 #### [facility] [address] [place], [address] Albumin/Globulin [Mass ratio] 0.7 {ratio} Low 0.9-2.4 [facility] Comment on above: Order Comment: 134 Performed By: #### L 500.4050, L506.1000, L100.0100, L501.9985 #### [facility] [address] [place], [address] ALK P 146 U/L High 45-117 [facility] Comment on above: Order Comment: 134 Performed By: #### L 500.4050, L506.1000, L100.0100, L501.9985 #### [facility] [address] [place], [address] ALT [Catalytic activity/Vol] 32 U/L Normal 13-56 [facility] Comment on above: Order Comment: 134 Performed By: #### L 500.4050, L506.1000, L100.0100, L501.9985 #### [facility] [address] [place], [address] AST [Catalytic activity/Vol] 36 U/L Normal 15-37 [facility] Comment on above: Order Comment: 134 Performed By: #### L 500.4050, L506.1000, L100.0100, L501.9985 #### [facility] [address] [place], [address] Bilirubin [Mass/Vol] 0.50 mg/dL Normal 0.20-1.00 [facility] Comment on above: Order Comment: 134 Result Comment: For patients on eltrombopag therapy, use of Dimension [place] TBIL is not recommended. Performed By: #### L 500.4050, L506.1000, L100.0100, L501.9985 #### [facility] [address] [place], [address] BUN/CRE 19.4 RATIO Normal 10-20 [facility] Comment on above: Order Comment: 134 Performed By: #### L 500.4050, L506.1000, L100.0100, L501.9985 #### [facility] [address] [place], [address] CA,Total 9.1 mg/dL Normal 8.5-10.1 [facility] Comment on above: Order Comment: 134 Performed By: #### L 500.4050, L506.1000, L100.0100, L501.9985 #### [facility] [address] [place], [address] Chloride [Moles/Vol] 109 mmol/L High 98-107 [facility] Comment on above: Order Comment: 134 Performed By: #### L 500.4050, L506.1000, L100.0100, L501.9985 #### [facility] [address] [place], [address] CO2 [Moles/Vol] 25.0 mmol/L Normal 21.0-32.0 [facility] Comment on above: Order Comment: 134 Performed By: #### L 500.4050, L506.1000, L100.0100, L501.9985 #### [facility] [address] [place], [address] Creatinine [Mass/Vol] 0.82 mg/dL Normal 0.55-1.02 [facility] Comment on above: Order Comment: 134 Result Comment: The validity of the calculated GFR GFRAA in patients over 70 years has not been determined. Clinical correlation is essential. Performed By: #### L 500.4050, L506.1000, L100.0100, L501.9985 #### [facility] [address] [place], [address] EST GFR - AA 88 mL/min Normal >60 [facility] Comment on above: Order Comment: 134 Result Comment: Afri can [place] GFR Calc Performed By: #### L 500.4050, L506.1000, L100.0100, L501.9985 #### [facility] [address] [place], [address] GAP 5 Normal 5-15 [facility] Comment on above: Order Comment: 134 Performed By: #### L 500.4050, L506.1000, L100.0100, L501.9985 #### [facility] [address] [place], [address] GFR/1.73 sq M.predicted among non-blacks MDRD (S/P/Bld) [Vol rate/Area] 73 mL/min/{1.73_m2} Normal >60 [facility] Comment on above: Order Comment: 134 Result Comment: Non- GFR Calc Performed By: #### L 500.4050, L506.1000, L100.0100, L501.9985 #### [facility] [address] [place], [address] Globulin (S) [Mass/Vol] 4.7 g/dL High 2.2-4.2 [facility] Comment on above: Order Comment: 134 Performed By: #### L 500.4050, L506.1000, L100.0100, L501.9985 #### [facility] [address] [place], [address] Glucose [Mass/Vol] 209 mg/dL High 74-106 [facility] Comment on above: Order Comment: 134 Result Comment: Gluc ose result greater than or equal to 200 mg/dL suggests DIABETES MELLITUS per A.D.A. criteria. Performed By: #### L 500.4050, L506.1000, L100.0100, L501.9985 #### [facility] [address] [place], [address] Potassium [Moles/Vol] 4.3 mmol/L Normal 3.5-5.1 [facility] Comment on above: Order Comment: 134 Performed By: #### L 500.4050, L506.1000, L100.0100, L501.9985 #### [facility] [address] [place], [address] Sodium [Moles/Vol] 139 mmol/L Normal 136-145 [facility] Comment on above: Order Comment: 134 Performed By: #### L 500.4050, L506.1000, L100.0100, L501.9985 #### [facility] [address] [place], [address] T PROT 7.8 g/dL Normal 6.4-8.2 [facility] Comment on above: Order Comment: 134 Performed By: #### L 500.4050, L506.1000, L100.0100, L501.9985 #### [facility] [address] [place], [address] Urea nitrogen [Mass/Vol] 16 mg/dL Normal 7-18 [facility] Comment on above: Order Comment: 134 Performed By: #### L 500.4050, L506.1000, L100.0100, L501.9985 #### [facility] [address] [place], [address] Hemoglobin A1con 04-09-2024 HbA1c (Bld) [Mass fraction] 7.9 % High 3.8-5.6 [facility] Comment on above: Order Comment: 134 Result Comment: Norm al < 5.7 % Prediabetic 5.7 - 6.4 % Diabetic >or= 6.5 % Please note range changes. Performed By: #### L 500.4050, L506.1000, L100.0100, L501.9985 #### [facility] [address] [place], [address] Vitamin D,25 Hydroxyon 04-09 Vitamin D 25-OH 40.0 ng/mL Normal [facility] Comment on above: Order Comment: 134 Result Comment: Maricarmen min D 25(OH) Status Range Deficiency <20 ng/mL (50nmol/L) Insufficiency 20 - 30 ng/mL (50 - 75 nmol/L) Sufficiency 30 - 100 ng/mL (75 - 250 nmol/L) Toxicity >100 ng/mL (>250 nmol/L) Performed By: #### L 500.4050, L506.1000, L100.0100, L501.9985 #### [facility] [address] [place], [address] CBC W/Diff, Automatedon 08-0 Absolute Lymph 1.07 X10 3/uL Normal 0.83-4.51 [facility] Comment on above: Performed By: #### L 506.1000, L100.0100, L501.9985, L500.4050 #### [facility] [address] [place], [address] Absolute Neut 2.9 X10 3/uL Normal 2.0-7.7 [facility] Comment on above: Performed By: #### L 506.1000, L100.0100, L501.9985, L500.4050 #### [facility] [address] [place], [address] Basophils/100 WBC (Bld) 0.7 % Normal 0-1 [facility] Comment on above: Performed By: #### L 506.1000, L100.0100, L501.9985, L500.4050 #### [facility] [address] [place], [address] Eosinophils/100 WBC (Bld) 3.9 % Normal 0-5 [facility] Comment on above: Performed By: #### L 506.1000, L100.0100, L501.9985, L500.4050 #### [facility] [address] [place], [address] Erythrocyte distribution width (RBC) [Ratio] 15.2 % High 11.6-14.6 [facility] Comment on above: Performed By: #### L 506.1000, L100.0100, L501.9985, L500.4050 #### [facility] [address] [place], [address] Hematocrit (Bld) [Volume fraction] 40.9 % Normal 37-47 [facility] Comment on above: Performed By: #### L 506.1000, L100.0100, L501.9985, L500.4050 #### [facility] [address] [place], [address] Hemoglobin (Bld) [Mass/Vol] 13.1 g/dL Normal 12.0-15.0 [facility] Comment on above: Performed By: #### L 506.1000, L100.0100, L501.9985, L500.4050 #### [facility] [address] [place], [address] IG% 0.400 Normal 0.0-0.9 [facility] Comment on above: Result Comment: IG% - Immature Granulocytes (promyelocytes, myelocytes and metamyelocytes) > 1% indicates that a LEFT SHIFT is Present. Performed By: #### L 506.1000, L100.0100, L501.9985, L500.4050 #### [facility] [address] [place], [address] Lymphocytes/100 WBC (Bld) 23.3 % Normal 19-41 [facility] Comment on above: Performed By: #### L 506.1000, L100.0100, L501.9985, L500.4050 #### [facility] [address] [place], [address] MCH (RBC) [Entitic mass] 29.0 pg Normal 27.0-32.0 [facility] Comment on above: Performed By: #### L 506.1000, L100.0100, L501.9985, L500.4050 #### [facility] [address] [place], [address] MCHC (RBC) [Mass/Vol] 32.0 g/dL Normal 32-36 [facility] Comment on above: Performed By: #### L 506.1000, L100.0100, L501.9985, L500.4050 #### [facility] [address] [place], [address] MCV (RBC) [Entitic vol] 90.7 fL Normal 81-99 [facility] Comment on above: Performed By: #### L 506.1000, L100.0100, L501.9985, L500.4050 #### [facility] [address] [place], [address] Monocytes/100 WBC (Bld) 9.2 % Normal 0-10 [facility] Comment on above: Performed By: #### L 506.1000, L100.0100, L501.9985, L500.4050 #### [facility] [address] [place], [address] Neutrophils/100 WBC (Bld) 62.5 % Normal 47-70 [facility] Comment on above: Performed By: #### L 506.1000, L100.0100, L501.9985, L500.4050 #### [facility] [address] [place], [address] Nucleated RBC (Bld) [#/Vol] 0 10*3/uL Normal 0-5 [facility] Comment on above: Performed By: #### L 506.1000, L100.0100, L501.9985, L500.4050 #### [facility] [address] [place], [address] Platelet mean volume (Bld) [Entitic vol] 11.7 fL Normal 6.2-12.0 [facility] Comment on above: Performed By: #### L 506.1000, L100.0100, L501.9985, L500.4050 #### [facility] [address] [place], [address] Platelets (Bld) [#/Vol] 110 10*3/uL Low 150-450 [facility] Comment on above: Performed By: #### L 506.1000, L100.0100, L501.9985, L500.4050 #### [facility] [address] [place], [address] RBC (Bld) [#/Vol] 4.51 10*6/uL Normal 4.2-5.4 [facility] Comment on above: Performed By: #### L 506.1000, L100.0100, L501.9985, L500.4050 #### [facility] [address] [place], [address] RDW SD 50.8 fl High 35.1-43.9 [facility] Comment on above: Performed By: #### L 506.1000, L100.0100, L501.9985, L500.4050 #### [facility] [address] [place], [address] WBC (Bld) [#/Vol] 4.6 10*3/uL Normal 4.4-11.0 [facility] Comment on above: Performed By: #### L 506.1000, L100.0100, L501.9985, L500.4050 #### [facility] [address] [place], [address] Comprehensive Metabolic Prof [facility] 01-09-2024 Albumin [Mass/Vol] 2.9 g/dL Low 3.2-5.0 [facility] Comment on above: Order Comment: 134 Performed By: #### L 506.1000, L100.0100, L501.9985, L500.4050 #### [facility] [address] [place], [address] Albumin/Globulin [Mass ratio] 0.6 {ratio} Low 0.9-2.4 [facility] Comment on above: Order Comment: 134 Performed By: #### L 506.1000, L100.0100, L501.9985, L500.4050 #### [facility] [address] [place], [address] ALK P 148 U/L High 45-117 [facility] Comment on above: Order Comment: 134 Performed By: #### L 506.1000, L100.0100, L501.9985, L500.4050 #### [facility] [address] [place], [address] ALT [Catalytic activity/Vol] 37 U/L Normal 13-56 [facility] Comment on above: Order Comment: 134 Performed By: #### L 506.1000, L100.0100, L501.9985, L500.4050 #### [facility] [address] [place], [address] AST [Catalytic activity/Vol] 40 U/L High 15-37 [facility] Comment on above: Order Comment: 134 Performed By: #### L 506.1000, L100.0100, L501.9985, L500.4050 #### [facility] [address] [place], [address] Bilirubin [Mass/Vol] 0.40 mg/dL Normal 0.20-1.00 [facility] Comment on above: Order Comment: 134 Result Comment: For patients on eltrombopag therapy, use of Dimension [place] TBIL is not recommended. Performed By: #### L 506.1000, L100.0100, L501.9985, L500.4050 #### [facility] [address] [place], [address] BUN/CRE 20.9 RATIO High 10-20 [facility] Comment on above: Order Comment: 134 Performed By: #### L 506.1000, L100.0100, L501.9985, L500.4050 #### [facility] [address] [place], [address] CA,Total 9.0 mg/dL Normal 8.5-10.1 [facility] Comment on above: Order Comment: 134 Performed By: #### L 506.1000, L100.0100, L501.9985, L500.4050 #### [facility] [address] [place], [address] Chloride [Moles/Vol] 108 mmol/L High 98-107 [facility] Comment on above: Order Comment: 134 Performed By: #### L 506.1000, L100.0100, L501.9985, L500.4050 #### [facility] [address] [place], [address] CO2 [Moles/Vol] 25.0 mmol/L Normal 21.0-32.0 [facility] Comment on above: Order Comment: 134 Performed By: #### L 506.1000, L100.0100, L501.9985, L500.4050 #### [facility] [address] [place], [address] Creatinine [Mass/Vol] 0.96 mg/dL Normal 0.55-1.02 [facility] Comment on above: Order Comment: 134 Result Comment: The validity of the calculated GFR GFRAA in patients over 70 years has not been determined. Clinical correlation is essential. Performed By: #### L 506.1000, L100.0100, L501.9985, L500.4050 #### [facility] [address] [place], [address] EST GFR - AA 74 mL/min Normal >60 [facility] Comment on above: Order Comment: 134 Result Comment: Afri can [place] GFR Calc Performed By: #### L 506.1000, L100.0100, L501.9985, L500.4050 #### [facility] [address] [place], [address] GAP 6 Normal 5-15 [facility] Comment on above: Order Comment: 134 Performed By: #### L 506.1000, L100.0100, L501.9985, L500.4050 #### [facility] [address] [place], [address] GFR/1.73 sq M.predicted among non-blacks MDRD (S/P/Bld) [Vol rate/Area] 61 mL/min/{1.73_m2} Normal >60 [facility] Comment on above: Order Comment: 134 Result Comment: Non- GFR Calc Performed By: #### L 506.1000, L100.0100, L501.9985, L500.4050 #### [facility] [address] [place], [address] Globulin (S) [Mass/Vol] 5.0 g/dL High 2.2-4.2 [facility] Comment on above: Order Comment: 134 Performed By: #### L 506.1000, L100.0100, L501.9985, L500.4050 #### [facility] [address] [place], [address] Glucose [Mass/Vol] 219 mg/dL High 74-106 [facility] Comment on above: Order Comment: 134 Result Comment: Gluc ose result greater than or equal to 200 mg/dL suggests DIABETES MELLITUS per A.D.A. criteria. Performed By: #### L 506.1000, L100.0100, L501.9985, L500.4050 #### [facility] [address] [place], [address] Potassium [Moles/Vol] 4.9 mmol/L Normal 3.5-5.1 [facility] Comment on above: Order Comment: 134 Performed By: #### L 506.1000, L100.0100, L501.9985, L500.4050 #### [facility] [address] [place], [address] Sodium [Moles/Vol] 139 mmol/L Normal 136-145 [facility] Comment on above: Order Comment: 134 Performed By: #### L 506.1000, L100.0100, L501.9985, L500.4050 #### [facility] [address] [place], [address] T PROT 7.9 g/dL Normal 6.4-8.2 [facility] Comment on above: Order Comment: 134 Performed By: #### L 506.1000, L100.0100, L501.9985, L500.4050 #### [facility] [address] [place], [address] Urea nitrogen [Mass/Vol] 20 mg/dL High 7-18 [facility] Comment on above: Order Comment: 134 Performed By: #### L 506.1000, L100.0100, L501.9985, L500.4050 #### [facility] [address] [place], [address] Hemoglobin A1con 01-09-2024 HbA1c (Bld) [Mass fraction] 7.9 % High 3.8-5.6 [facility] Comment on above: Result Comment: Norm al < 5.7 % Prediabetic 5.7 - 6.4 % Diabetic >or= 6.5 % Please note range changes. Performed By: #### L 506.1000, L100.0100, L501.9985, L500.4050 #### [facility] [address] [place], [address] Vitamin D,25 Hydroxyon 01-08 Vitamin D 25-OH 52.9 ng/mL Normal [facility] Comment on above: Result Comment: Maricarmen min D 25(OH) Status Range Deficiency <20 ng/mL (50nmol/L) Insufficiency 20 - 30 ng/mL (50 - 75 nmol/L) Sufficiency 30 - 100 ng/mL (75 - 250 nmol/L) Toxicity >100 ng/mL (>250 nmol/L) Performed By: #### L 506.1000, L100.0100, L501.9985, L500.4050 #### [facility] [address] [place], [address] Absolute lymphocyte countOrd ered By: Shayna Malhotra on 07-08-2023 Lymphocytes Auto (Unsp spec) [#/Vol] 0.97 10*3/uL 0.83-4.51 [facility] Automated lymphocyte count a s percentage of total leukocytesOrdered By: Shayna Malhotra on 07-08-2023 Lymphocytes/100 WBC Auto (Unsp spec) 21.6 % 19-41 [facility] Basophil percentageOrdered B y: Shayna Malhotra on 07-08-2023 Basophils/100 WBC (Bld) 0.7 % 0-1 [facility] Bilirubin [Mass/Vol] 0.60 mg/dL 0.20-1.00 [facility] Comment on above: For patients on eltr ombopag therapy, use of Dimension [place] TBIL is not recommended. Chloride [Moles/Vol] 109 mmol/L 98-107 [facility] Eosinophils/100 WBC (Bld) 2.4 % 0-5 [facility] Glucose [Mass/Vol] 204 mg/dL 74-106 [facility] Comment on above: Glucose result great er than or equal to 200 mg/dLsuggests DIABETES MELLITUS per A.D.A. criteria. Hemoglobin (Bld) [Mass/Vol] 12.6 g/dL 12.0-15.0 [facility] Monocytes/100 WBC (Bld) 8.7 % 0-10 [facility] Neutrophils (Bld) [#/Vol] 3.0 10*3/uL 2.0-7.7 [facility] Neutrophils/100 WBC (Bld) 66.4 % 47-70 [facility] Potassium [Moles/Vol] 4.4 mmol/L 3.5-5.1 [facility] Protein [Mass/Vol] 8.0 g/dL 6.4-8.2 [facility] Sodium [Moles/Vol] 137 mmol/L 136-145 [facility] WBC (Bld) [#/Vol] 4.5 10*3/uL 4.4-11.0 [facility] Determination of erythrocyte mean corpuscular volume (MCV)Ordered By: Shayna Malhotra on 07-08-2023 MCV (RBC) [Entitic vol] 90.3 fL 81-99 [facility] Erythrocyte distribution wid th ratioOrdered By: Shayna Malhotra on 07-08-2023 Erythrocyte distribution width (RBC) [Ratio] 15.5 % 11.6-14.6 [facility] Erythrocyte distribution wid th standard deviationOrdered By: Shayna Malhotra on 07-08-2023 Erythrocyte distribution width (RBC) [Entitic vol] 51.9 fL 35.1-43.9 [facility] Hematocrit Auto (Bld) [Volum e fraction]Ordered By: Shayna Malhotra on 07-08-2023 Hematocrit (Bld) [Volume fraction] 39.9 % 37-47 [facility] Immature granulocytes/100 WB C Auto (Bld)Ordered By: Shayna Malhotra on 07-08-2023 Immature granulocytes/100 WBC (Bld) 0.200 % 0.0-0.9 [facility] Comment on above: IG% - Immature Granu locytes (promyelocytes, myelocytes and metamyelocytes) > 1% indicates that a LEFT SHIFT is Present. Laboratory - Chemistry and C hemistry - challengeOrdered By: Shayna Malhotra on 07-08-2023 Albumin/Globulin [Mass ratio] 0.7 {ratio} 0.9-2.4 [facility] ALP [Catalytic activity/Vol] 126 U/L 45-117 [facility] ALT [Catalytic activity/Vol] 34 U/L 13-56 [facility] CO2 [Moles/Vol] 24.0 mmol/L 21.0-32.0 [facility] Globulin (S) [Mass/Vol] 4.7 g/dL 2.2-4.2 [facility] Urea nitrogen/Creatinine [Mass ratio] 17.2 mg/mg 10-20 [facility] Laboratory - Hematology and Cell countsOrdered By: Shayna Malhotra on 07-08-2023 MCH (RBC) [Entitic mass] 28.5 pg 27.0-32.0 [facility] MCHC (RBC) [Mass/Vol] 31.6 g/dL 32-36 [facility] Nucleated RBC/100 WBC (Bld) [Ratio] 0 % 0-5 [facility] Platelets (Bld) [#/Vol] 130 10*3/uL 150-450 [facility] No Panel InformationOrdered By: Shayna Malhotra on 07-08-2023 Estimated GFR (MDRD) Amer 83 mL/min >60 [facility] Comment on above: GFR Calc Estimated GFR (MDRD) Non-Af Amer 68 mL/min >60 [facility] Comment on above: Non- GFR Calc Vitamin D 25-Hydroxy 36.2 ng/mL [facility] Comment on above: Vitamin D 25(OH) Sta tus Range Deficiency <20 ng/mL (50nmol/L) Insufficiency 20 - 30 ng/mL (50 - 75 nmol/L) Sufficiency 30 - 100 ng/mL (75 - 250 nmol/L) Toxicity >100 ng/mL (>250 nmol/L) Platelet mean volume Robert-Ec ker (Bld) [Entitic vol]Ordered By: Shayna Malhotra on 07-08-2023 Platelet mean volume (Bld) [Entitic vol] 11.5 fL 6.2-12.0 [facility] RBC Auto (Bld) [#/Vol]Ordere d By: Shayna Malhotra on 07-08-2023 RBC (Bld) [#/Vol] 4.42 10*6/uL 4.2-5.4 [facility] Serum or plasma calcium kim urement (mass/volume)Ordered By: Shayna Malhotra on 07-08-2023 Calcium [Mass/Vol] 9.3 mg/dL 8.5-10.1 [facility] Serum or plasma creatinine m easurement (mass/volume)Ordered By: Shayna Malhotra on 07-08-2023 Creatinine [Mass/Vol] 0.87 mg/dL 0.55-1.02 [facility] Comment on above: The validity of the calculated GFR & GFRAA in patients over 70 years has not been determined. Clinical correlation is essential. Serum or plasma urea nitroge n measurement (mass/volume)Ordered By: Shayna Malhotra on 07-08-2023 Urea nitrogen [Mass/Vol] 15 mg/dL 7-18 [facility] Thin prep Papanicolaou smear with manual screeningOrdered By: Shayna Malhotra on 07-08-2023 Thin prep Papanicolaou smear with manual screening 3.3 g/dL 3.2-5.0 [facility] Thin prep Papanicolaou smear with manual screening 38 U/L 15-37 [facility] Thin prep Papanicolaou smear with manual screening 4 5-15 [facility] Whole blood hemoglobin A1c/t otal hemoglobin ratio (mass fraction)Ordered By: Shayna Malhotra on 07-08-2023 HbA1c (Bld) [Mass fraction] 7.5 % 3.8-5.6 [facility] Comment on above: Normal < 5.7 % Predi abetic 5.7 - 6.4 % Diabetic >or= 6.5 % Please note range changes. Absolute lymphocyte countOrd ered By: [facility] on 04-08-2023 Lymphocytes Auto (Unsp spec) [#/Vol] 1.16 10*3/uL 0.83-4.51 [facility] Basophil percentageOrdered B y: [facility] on 04-08-2023 Basophils/100 WBC (Bld) 0.6 % 0-1 [facility] Bilirubin [Mass/Vol] 0.60 mg/dL 0.20-1.00 [facility] Comment on above: For patients on eltr ombopag therapy, use of [place] TBIL is not recommended. Chloride [Moles/Vol] 106 mmol/L 98-107 [facility] Eosinophils/100 WBC (Bld) 2.6 % 0-5 [facility] Glucose [Mass/Vol] 200 mg/dL 74-106 [facility] Comment on above: Glucose result great er than or equal to 200 mg/dLsuggests DIABETES MELLITUS per A.D.A. criteria. Neutrophils (Bld) [#/Vol] 3.3 10*3/uL 2.0-7.7 [facility] Neutrophils/100 WBC (Bld) 65.4 % 47-70 [facility] Potassium [Moles/Vol] 4.2 mmol/L 3.5-5.1 [facility] Protein [Mass/Vol] 8.1 g/dL 6.4-8.2 [facility] Sodium [Moles/Vol] 136 mmol/L 136-145 [facility] WBC (Bld) [#/Vol] 5.0 10*3/uL 4.4-11.0 [facility] Blood erythrocytes count (nu mber/volume)Ordered By: [facility] on 04-08-2023 RBC (Bld) [#/Vol] 4.50 10*6/uL 4.2-5.4 [facility] Blood hemoglobin measurement (mass/volume)Ordered By: [facility] on 04-08-2023 Hemoglobin (Bld) [Mass/Vol] 12.9 g/dL 12.0-15.0 [facility] Blood lymphocytes/100 leukoc ytesOrdered By: [facility] on 04-08-2023 Lymphocytes/100 WBC (Bld) 23.2 % 19-41 [facility] Blood monocytes/100 leukocyt esOrdered By: [facility] on 04-08-2023 Monocytes/100 WBC (Bld) 7.8 % 0-10 [facility] Blood platelet mean volumeOr dered By: [facility] on 04-08-2023 Platelet mean volume (Bld) [Entitic vol] 11.9 fL 6.2-12.0 [facility] Determination of erythrocyte mean corpuscular volume (MCV)Ordered By: [facility] on 04-08-2023 MCV (RBC) [Entitic vol] 89.6 fL 81-99 [facility] Hematocrit Auto (Bld) [Volum e fraction]Ordered By: [facility] on 04-08-2023 Hematocrit (Bld) [Volume fraction] 40.3 % 37-47 [facility] Laboratory - Chemistry and C hemistry - challengeOrdered By: [facility] on 04-08-2023 ALP [Catalytic activity/Vol] 126 U/L 45-117 [facility] ALT [Catalytic activity/Vol] 35 U/L 13-56 [facility] CO2 [Moles/Vol] 24.0 mmol/L 21.0-32.0 [facility] Globulin (S) [Mass/Vol] 4.9 g/dL 2.2-4.2 [facility] Urea nitrogen/Creatinine [Mass ratio] 17.1 mg/mg 10-20 [facility] Laboratory - Hematology and Cell countsOrdered By: [facility] on 04-08-2023 Erythrocyte distribution width (RBC) [Entitic vol] 51.4 fL 35.1-43.9 [facility] Erythrocyte distribution width (RBC) [Ratio] 15.6 % 11.6-14.6 [facility] Immature granulocytes/100 WBC (Bld) 0.400 % 0.0-0.9 [facility] Comment on above: IG% - Immature Granu locytes (promyelocytes, myelocytes and metamyelocytes) > 1% indicates that a LEFT SHIFT is Present. MCH (RBC) [Entitic mass] 28.7 pg 27.0-32.0 [facility] Nucleated RBC/100 WBC (Bld) [Ratio] 0 % 0-5 [facility] MCHC Auto (RBC) [Mass/Vol]Or dered By: [facility] on 04-08-2023 MCHC (RBC) [Mass/Vol] 32.0 g/dL 32-36 [facility] No Panel InformationOrdered By: [facility] on 04-08-2023 Estimated GFR (MDRD) Amer 82 mL/min >60 [facility] Comment on above: GFR Calc Estimated GFR (MDRD) Non-Af Amer 68 mL/min >60 [facility] Comment on above: Non- GFR Calc Vitamin D 25-Hydroxy 43.2 ng/mL [facility] Comment on above: Vitamin D 25(OH) Sta tus Range Deficiency <20 ng/mL (50nmol/L) Insufficiency 20 - 30 ng/mL (50 - 75 nmol/L) Sufficiency 30 - 100 ng/mL (75 - 250 nmol/L) Toxicity >100 ng/mL (>250 nmol/L) Platelets bldOrdered By: [facility] on 04-08-2023 Platelets (Bld) [#/Vol] 119 10*3/uL 150-450 [facility] Serum or plasma albumin kim urement (mass/volume)Ordered By: [facility] on 04-08-2023 Albumin [Mass/Vol] 3.2 g/dL 3.2-5.0 [facility] Serum or plasma albumin/glob ulin mass ratioOrdered By: [facility] on 04-08-2023 Albumin/Globulin [Mass ratio] 0.7 {ratio} 0.9-2.4 [facility] Serum or plasma calcium kim urement (mass/volume)Ordered By: [facility] on 04-08-2023 Calcium [Mass/Vol] 9.1 mg/dL 8.5-10.1 [facility] Serum or plasma creatinine m easurement (mass/volume)Ordered By: [facility] on 04-08-2023 Creatinine [Mass/Vol] 0.88 mg/dL 0.55-1.02 [facility] Comment on above: The validity of the calculated GFR & GFRAA in patients over 70 years has not been determined. Clinical correlation is essential. Serum or plasma urea nitroge n measurement (mass/volume)Ordered By: [facility] on 04-08-2023 Urea nitrogen [Mass/Vol] 15 mg/dL 7-18 [facility] Thin prep Papanicolaou smear with manual screeningOrdered By: [facility] on 04-08-2023 Thin prep Papanicolaou smear with manual screening 36 U/L 15-37 [facility] Thin prep Papanicolaou smear with manual screening 6 5-15 [facility] Whole blood hemoglobin A1c/t otal hemoglobin ratio (mass fraction)Ordered By: [facility] on 04-08-2023 HbA1c (Bld) [Mass fraction] 7.5 % 3.8-5.6 [facility] Comment on above: Normal < 5.7 % Predi abetic 5.7 - 6.4 % Diabetic >or= 6.5 % Please note range changes. Absolute lymphocyte countOrd ered By: Shayna Malhotra on 10-13-2022 Lymphocytes Auto (Unsp spec) [#/Vol] 1.32 10*3/uL 0.83-4.51 [facility] Basophil percentageOrdered B y: Shayna Malhotra on 10-13-2022 Basophils/100 WBC (Bld) 0.6 % 0-1 [facility] Bilirubin [Mass/Vol] 0.40 mg/dL 0.20-1.00 [facility] Comment on above: For patients on eltr ombopag therapy, use of [employer] [place] TBIL is not recommended. Chloride [Moles/Vol] 106 mmol/L 98-107 [facility] Eosinophils/100 WBC (Bld) 3.5 % 0-5 [facility] Glucose [Mass/Vol] 232 mg/dL 74-106 [facility] Comment on above: Glucose result great er than or equal to 200 mg/dLsuggests DIABETES MELLITUS per A.D.A. criteria. Neutrophils (Bld) [#/Vol] 3.2 10*3/uL 2.0-7.7 [facility] Neutrophils/100 WBC (Bld) 60.7 % 47-70 [facility] Potassium [Moles/Vol] 4.7 mmol/L 3.5-5.1 [facility] Protein [Mass/Vol] 8.1 g/dL 6.4-8.2 [facility] Sodium [Moles/Vol] 137 mmol/L 136-145 [facility] WBC (Bld) [#/Vol] 5.2 10*3/uL 4.4-11.0 [facility] Blood erythrocytes count (nu mber/volume)Ordered By: Shayna Malhotra on 10-13-2022 RBC (Bld) [#/Vol] 4.62 10*6/uL 4.2-5.4 [facility] Blood hemoglobin measurement (mass/volume)Ordered By: Shayna Malhotra on 10-13-2022 Hemoglobin (Bld) [Mass/Vol] 13.1 g/dL 12.0-15.0 [facility] Blood lymphocytes/100 leukoc ytesOrdered By: Shayna Malhotra on 10-13-2022 Lymphocytes/100 WBC (Bld) 25.4 % 19-41 [facility] Blood monocytes/100 leukocyt esOrdered By: Shayna Malhotra on 10-13-2022 Monocytes/100 WBC (Bld) 9.6 % 0-10 [facility] Blood platelet mean volumeOr dered By: Shayna Malhotra on 10-13-2022 Platelet mean volume (Bld) [Entitic vol] 11.1 fL 6.2-12.0 [facility] Determination of erythrocyte mean corpuscular volume (MCV)Ordered By: Shayna Malhotra on 10-13-2022 MCV (RBC) [Entitic vol] 90.3 fL 81-99 [facility] Hematocrit Auto (Bld) [Volum e fraction]Ordered By: Shayna Malhotra on 10-13-2022 Hematocrit (Bld) [Volume fraction] 41.7 % 37-47 [facility] Laboratory - Chemistry and C hemistry - challengeOrdered By: Shayna Malhotra on 10-13-2022 ALP [Catalytic activity/Vol] 153 U/L 45-117 [facility] ALT [Catalytic activity/Vol] 45 U/L 13-56 [facility] CO2 [Moles/Vol] 25.0 mmol/L 21.0-32.0 [facility] Globulin (S) [Mass/Vol] 4.9 g/dL 2.2-4.2 [facility] Urea nitrogen/Creatinine [Mass ratio] 15.7 mg/mg 10-20 [facility] Laboratory - Hematology and Cell countsOrdered By: Shayna Malhotra on 10-13-2022 Erythrocyte distribution width (RBC) [Entitic vol] 50.5 fL 35.1-43.9 [facility] Erythrocyte distribution width (RBC) [Ratio] 15.1 % 11.6-14.6 [facility] Immature granulocytes/100 WBC (Bld) 0.200 % 0.0-0.9 [facility] Comment on above: IG% - Immature Granu locytes (promyelocytes, myelocytes and metamyelocytes) > 1% indicates that a LEFT SHIFT is Present. MCH (RBC) [Entitic mass] 28.4 pg 27.0-32.0 [facility] Nucleated RBC/100 WBC (Bld) [Ratio] 0 % 0-5 [facility] MCHC Auto (RBC) [Mass/Vol]Or dered By: Shayna Malhotra on 10-13-2022 MCHC (RBC) [Mass/Vol] 31.4 g/dL 32-36 [facility] No Panel InformationOrdered By: Shayna Malhotra on 10-13-2022 Estimated GFR (MDRD) Amer 80 mL/min >60 [facility] Comment on above: GFR Calc Estimated GFR (MDRD) Non-Af Amer 66 mL/min >60 [facility] Comment on above: Non- GFR Calc Vitamin D 25-Hydroxy 57.3 ng/mL [facility] Comment on above: Vitamin D 25(OH) Sta tus Range Deficiency <20 ng/mL (50nmol/L) Insufficiency 20 - 30 ng/mL (50 - 75 nmol/L) Sufficiency 30 - 100 ng/mL (75 - 250 nmol/L) Toxicity >100 ng/mL (>250 nmol/L) Platelets bldOrdered By: Evi Malhotra on 10-13-2022 Platelets (Bld) [#/Vol] 139 10*3/uL 150-450 [facility] Serum or plasma albumin kim urement (mass/volume)Ordered By: Shayna Malhotra on 10-13-2022 Albumin [Mass/Vol] 3.2 g/dL 3.2-5.0 [facility] Serum or plasma albumin/glob ulin mass ratioOrdered By: Shayna Malhotra on 10-13-2022 Albumin/Globulin [Mass ratio] 0.7 {ratio} 0.9-2.4 [facility] Serum or plasma calcium kim urement (mass/volume)Ordered By: Shayna Malhotra on 10-13-2022 Calcium [Mass/Vol] 9.5 mg/dL 8.5-10.1 [facility] Serum or plasma creatinine m easurement (mass/volume)Ordered By: Shayna Malhotra on 10-13-2022 Creatinine [Mass/Vol] 0.89 mg/dL 0.55-1.02 [facility] Comment on above: The validity of the calculated GFR & GFRAA in patients over 70 years has not been determined. Clinical correlation is essential. Serum or plasma urea nitroge n measurement (mass/volume)Ordered By: Shayna Malhotra on 10-13-2022 Urea nitrogen [Mass/Vol] 14 mg/dL 7-18 [facility] Thin prep Papanicolaou smear with manual screeningOrdered By: Shayna Malhotra on 10-13-2022 Thin prep Papanicolaou smear with manual screening 49 U/L 15-37 [facility] Thin prep Papanicolaou smear with manual screening 6 5-15 [facility] No Panel InformationOrdered By: Shayna Malhotra on 08-12-2022 C-Peptide 2.9 ng/mL 1.1-4.4 [facility] Comment on above: C-Peptide reference interval is for fasting patients.Performed at: [facility] [id number] Director: Suhas Deal PhD, Phone: [phone] Absolute lymphocyte countOrd ered By: Shayna Malhotra on 07-13-2022 Lymphocytes Auto (Unsp spec) [#/Vol] 1.18 10*3/uL 0.83-4.51 [facility] Basophil percentageOrdered B y: Shayna Malhotra on 07-13-2022 Basophils/100 WBC (Bld) 0.7 % 0-1 [facility] Bilirubin [Mass/Vol] 0.90 mg/dL 0.20-1.00 [facility] Comment on above: For patients on eltr ombopag therapy, use of [employer] [place] TBIL is not recommended. Chloride [Moles/Vol] 104 mmol/L 98-107 [facility] Eosinophils/100 WBC (Bld) 3.3 % 0-5 [facility] Glucose [Mass/Vol] 314 mg/dL 74-106 [facility] Comment on above: Glucose result great er than or equal to 200 mg/dLsuggests DIABETES MELLITUS per A.D.A. criteria. Neutrophils (Bld) [#/Vol] 3.5 10*3/uL 2.0-7.7 [facility] Neutrophils/100 WBC (Bld) 64.8 % 47-70 [facility] Potassium [Moles/Vol] 5.1 mmol/L 3.5-5.1 [facility] Comment on above: Slight Hemolysis, Re sult may be falsely increased. Protein [Mass/Vol] 8.2 g/dL 6.4-8.2 [facility] Sodium [Moles/Vol] 135 mmol/L 136-145 [facility] WBC (Bld) [#/Vol] 5.4 10*3/uL 4.4-11.0 [facility] Blood erythrocytes count (nu mber/volume)Ordered By: Shayna Malhotra on 07-13-2022 RBC (Bld) [#/Vol] 4.51 10*6/uL 4.2-5.4 [facility] Blood hemoglobin measurement (mass/volume)Ordered By: Shayna Malhotra on 07-13-2022 Hemoglobin (Bld) [Mass/Vol] 12.8 g/dL 12.0-15.0 [facility] Blood lymphocytes/100 leukoc ytesOrdered By: Shayna Malhotra on 07-13-2022 Lymphocytes/100 WBC (Bld) 21.9 % 19-41 [facility] Blood monocytes/100 leukocyt esOrdered By: Shayna Malhotra on 07-13-2022 Monocytes/100 WBC (Bld) 9.1 % 0-10 [facility] Blood platelet mean volumeOr dered By: Shayna Malhotra on 07-13-2022 Platelet mean volume (Bld) [Entitic vol] 11.2 fL 6.2-12.0 [facility] Determination of erythrocyte mean corpuscular volume (MCV)Ordered By: Shayna Malhotra on 07-13-2022 MCV (RBC) [Entitic vol] 87.1 fL 81-99 [facility] Hematocrit Auto (Bld) [Volum e fraction]Ordered By: Shayna Malhotra on 07-13-2022 Hematocrit (Bld) [Volume fraction] 39.3 % 37-47 [facility] Laboratory - Chemistry and C hemistry - challengeOrdered By: Shayna Malhotra on 07-13-2022 ALP [Catalytic activity/Vol] 159 U/L 45-117 [facility] ALT [Catalytic activity/Vol] 35 U/L 13-56 [facility] CO2 [Moles/Vol] 23.0 mmol/L 21.0-32.0 [facility] Globulin (S) [Mass/Vol] 4.9 g/dL 2.2-4.2 [facility] Urea nitrogen/Creatinine [Mass ratio] 16.6 mg/mg 10-20 [facility] Laboratory - Hematology and Cell countsOrdered By: Shayna Malhotra on 07-13-2022 Erythrocyte distribution width (RBC) [Entitic vol] 49.6 fL 35.1-43.9 [facility] Erythrocyte distribution width (RBC) [Ratio] 15.7 % 11.6-14.6 [facility] Immature granulocytes/100 WBC (Bld) 0.200 % 0.0-0.9 [facility] Comment on above: IG% - Immature Granu locytes (promyelocytes, myelocytes and metamyelocytes) > 1% indicates that a LEFT SHIFT is Present. MCH (RBC) [Entitic mass] 28.4 pg 27.0-32.0 [facility] Nucleated RBC/100 WBC (Bld) [Ratio] 0 % 0-5 [facility] MCHC Auto (RBC) [Mass/Vol]Or dered By: Shayna Malhotra on 07-13-2022 MCHC (RBC) [Mass/Vol] 32.6 g/dL 32-36 [facility] No Panel InformationOrdered By: Shayna Malhotra on 07-13-2022 Estimated GFR (MDRD) Amer 74 mL/min >60 [facility] Comment on above: GFR Calc Estimated GFR (MDRD) Non-Af Amer 61 mL/min >60 [facility] Comment on above: Non- GFR Calc Vitamin D 25-Hydroxy 47.5 ng/mL [facility] Comment on above: Vitamin D 25(OH) Sta tus Range Deficiency <20 ng/mL (50nmol/L) Insufficiency 20 - 30 ng/mL (50 - 75 nmol/L) Sufficiency 30 - 100 ng/mL (75 - 250 nmol/L) Toxicity >100 ng/mL (>250 nmol/L) Platelets bldOrdered By: Evi Malhotra on 07-13-2022 Platelets (Bld) [#/Vol] 132 10*3/uL 150-450 [facility] Serum or plasma albumin kim urement (mass/volume)Ordered By: Shayna Malhotra on 07-13-2022 Albumin [Mass/Vol] 3.3 g/dL 3.2-5.0 [facility] Serum or plasma albumin/glob ulin mass ratioOrdered By: Shayna Malhotra on 07-13-2022 Albumin/Globulin [Mass ratio] 0.7 {ratio} 0.9-2.4 [facility] Serum or plasma calcium ikm urement (mass/volume)Ordered By: Shayna Malhotra on 07-13-2022 Calcium [Mass/Vol] 9.6 mg/dL 8.5-10.1 [facility] Serum or plasma creatinine m easurement (mass/volume)Ordered By: Sahyna Malhotra on 07-13-2022 Creatinine [Mass/Vol] 0.97 mg/dL 0.55-1.02 [facility] Comment on above: The validity of the calculated GFR & GFRAA in patients over 70 years has not been determined. Clinical correlation is essential. Serum or plasma urea nitroge n measurement (mass/volume)Ordered By: Shayna Malhotra on 07-13-2022 Urea nitrogen [Mass/Vol] 16 mg/dL 7-18 [facility] Thin prep Papanicolaou smear with manual screeningOrdered By: Shayna Malhotra on 07-13-2022 Thin prep Papanicolaou smear with manual screening 48 U/L 15-37 [facility] Comment on above: Slight Hemolysis, Re sult may be falsely increased. Thin prep Papanicolaou smear with manual screening 8 5-15 [facility] Absolute lymphocyte countOrd ered By: [facility] on 06-08-2022 Lymphocytes Auto (Unsp spec) [#/Vol] 1.23 10*3/uL 0.83-4.51 [facility] Basophil percentageOrdered B y: [facility] on 06-08-2022 Basophils/100 WBC (Bld) 0.6 % 0-1 [facility] Bilirubin [Mass/Vol] 0.50 mg/dL 0.20-1.00 [facility] Comment on above: For patients on eltr ombopag therapy, use of [employer] [place] TBIL is not recommended. Chloride [Moles/Vol] 103 mmol/L 98-107 [facility] Cholesterol [Mass/Vol] 116 mg/dL <200 [facility] Comment on above: <200 mg/dL Desirable 200-240 mg/dL Borderline >240 mg/dL High Risk Eosinophils/100 WBC (Bld) 3.3 % 0-5 [facility] Glucose [Mass/Vol] 266 mg/dL 74-106 [facility] Comment on above: Glucose result great er than or equal to 200 mg/dLsuggests DIABETES MELLITUS per A.D.A. criteria. Neutrophils (Bld) [#/Vol] 2.9 10*3/uL 2.0-7.7 [facility] Neutrophils/100 WBC (Bld) 61.4 % 47-70 [facility] Potassium [Moles/Vol] 4.3 mmol/L 3.5-5.1 [facility] Protein [Mass/Vol] 7.6 g/dL 6.4-8.2 [facility] Sodium [Moles/Vol] 134 mmol/L 136-145 [facility] Triglyceride [Mass/Vol] 86 mg/dL <199 [facility] Comment on above: The drugs N-Acetylcy steine and Metamizole may falsely depress this assay.Serum Triglycerides Reference Interval Normal <150 mg/dL Borderline high 150 - 199 mg/dL High 200 - 499 mg/dL Very High > or = 500 mg/dL WBC (Bld) [#/Vol] 4.8 10*3/uL 4.4-11.0 [facility] Blood erythrocytes count (nu mber/volume)Ordered By: [facility] on 06-08-2022 RBC (Bld) [#/Vol] 4.47 10*6/uL 4.2-5.4 [facility] Blood hemoglobin measurement (mass/volume)Ordered By: [facility] on 06-08-2022 Hemoglobin (Bld) [Mass/Vol] 12.4 g/dL 12.0-15.0 [facility] Blood lymphocytes/100 leukoc ytesOrdered By: [facility] on 06-08-2022 Lymphocytes/100 WBC (Bld) 25.7 % 19-41 [facility] Blood monocytes/100 leukocyt esOrdered By: [facility] on 06-08-2022 Monocytes/100 WBC (Bld) 8.8 % 0-10 [facility] Blood platelet mean volumeOr dered By: [facility] on 06-08-2022 Platelet mean volume (Bld) [Entitic vol] 11.1 fL 6.2-12.0 [facility] Determination of erythrocyte mean corpuscular volume (MCV)Ordered By: [facility] on 06-08-2022 MCV (RBC) [Entitic vol] 88.8 fL 81-99 [facility] Hematocrit Auto (Bld) [Volum e fraction]Ordered By: [facility] on 06-08-2022 Hematocrit (Bld) [Volume fraction] 39.7 % 37-47 [facility] Laboratory - Chemistry and C hemistry - challengeOrdered By: [facility] on 06-08-2022 ALP [Catalytic activity/Vol] 142 U/L 45-117 [facility] ALT [Catalytic activity/Vol] 36 U/L 13-56 [facility] CO2 [Moles/Vol] 22.0 mmol/L 21.0-32.0 [facility] Globulin (S) [Mass/Vol] 4.8 g/dL 2.2-4.2 [facility] Urea nitrogen/Creatinine [Mass ratio] 17.1 mg/mg 10-20 [facility] - Hematology and Cell countsOrdered By: [facility] on 06-08-2022 Erythrocyte distribution width (RBC) [Entitic vol] 48.8 fL 35.1-43.9 [facility] Erythrocyte distribution width (RBC) [Ratio] 14.9 % 11.6-14.6 [facility] Immature granulocytes/100 WBC (Bld) 0.200 % 0.0-0.9 [facility] Comment on above: IG% - Immature Granu locytes (promyelocytes, myelocytes and metamyelocytes) > 1% indicates that a LEFT SHIFT is Present. MCH (RBC) [Entitic mass] 27.7 pg 27.0-32.0 [facility] Nucleated RBC/100 WBC (Bld) [Ratio] 0 % 0-5 [facility] MCHC Auto (RBC) [Mass/Vol]Or dered By: [facility] on 06-08-2022 MCHC (RBC) [Mass/Vol] 31.2 g/dL 32-36 [facility] No Panel InformationOrdered By: [facility] on 06-08-2022 Estimated GFR (MDRD) Amer 82 mL/min >60 [facility] Comment on above: GFR Calc Estimated GFR (MDRD) Non-Af Amer 68 mL/min >60 [facility] Comment on above: Non- GFR Calc Vitamin D 25-Hydroxy 56.8 ng/mL [facility] Comment on above: Vitamin D 25(OH) Sta tus Range Deficiency <20 ng/mL (50nmol/L) Insufficiency 20 - 30 ng/mL (50 - 75 nmol/L) Sufficiency 30 - 100 ng/mL (75 - 250 nmol/L) Toxicity >100 ng/mL (>250 nmol/L) Platelets bldOrdered By: [facility] on 06-08-[facility]22 Platelets (Bld) [#/Vol] 145 10*3/uL 150-450 [facility] Serum or plasma albumin kim urement (mass/volume)Ordered By: [facility] on 06-08-2022 Albumin [Mass/Vol] 2.8 g/dL 3.2-5.0 [facility] Serum or plasma albumin/glob ulin mass ratioOrdered By: [facility] on 06-08-2022 Albumin/Globulin [Mass ratio] 0.6 {ratio} 0.9-2.4 [facility] Serum or plasma calcium kim urement (mass/volume)Ordered By: [facility] on 06-08-2022 Calcium [Mass/Vol] 9.0 mg/dL 8.5-10.1 [facility] Serum or plasma cholesterol in HDL measurement (mass/volume)Ordered By: [facility] on 06-08-2022 Cholesterol in HDL [Mass/Vol] 58 mg/dL >40 [facility] Comment on above: The drugs N-Acetylcy steine and Metamizole may falsely depress this assay. Reference Range HDL <40 mg/dL Low HDL Cholesterol HDL >or= 60 mg/dL High HDL Cholesterol Serum or plasma cholesterol in VLDL measurement (mass/volume)Ordered By: [facility] on 06-08-2022 Cholesterol in VLDL [Mass/Vol] 17 mg/dL 5-40 [facility] Serum or plasma creatinine m easurement (mass/volume)Ordered By: [facility] on 06-08-2022 Creatinine [Mass/Vol] 0.88 mg/dL 0.55-1.02 [facility] Comment on above: The validity of the calculated GFR & GFRAA in patients over 70 years has not been determined. Clinical correlation is essential. Serum or plasma low density lipoprotein (LDL) cholesterol measurement (mass/volume)Ordered By: [facility] on 06-08-2022 Cholesterol in LDL [Mass/Vol] 41 mg/dL 0-130 [facility] Serum or plasma urea nitroge n measurement (mass/volume)Ordered By: [facility] on 06-08-2022 Urea nitrogen [Mass/Vol] 15 mg/dL 7-18 [facility] Thin prep Papanicolaou smear with manual screeningOrdered By: [facility] on 06-08-2022 Thin prep Papanicolaou smear with manual screening 39 U/L 15-37 [facility] Thin prep Papanicolaou smear with manual screening 9 5-15 [facility] Whole blood hemoglobin A1c/t otal hemoglobin ratio (mass fraction)Ordered By: [facility] on 06-08-2022 HbA1c (Bld) [Mass fraction] 8.8 % 3.8-5.6 [facility] Comment on above: Normal < 5.7 % Predi abetic 5.7 - 6.4 % Diabetic >or= 6.5 % Please note range changes. Absolute lymphocyte countOrd ered By: Shayna Malhotra on 04-13-2022 Lymphocytes Auto (Unsp spec) [#/Vol] 1.30 10*3/uL 0.83-4.51 [facility] Basophil percentageOrdered B y: Shayna Malhotra on 04-13-2022 Basophils/100 WBC (Bld) 0.2 % 0-1 [facility] Bilirubin [Mass/Vol] 0.40 mg/dL 0.20-1.00 [facility] Comment on above: For patients on eltr ombopag therapy, use of [place] TBIL is not recommended. Chloride [Moles/Vol] 106 mmol/L 98-107 [facility] Eosinophils/100 WBC (Bld) 3.5 % 0-5 [facility] Glucose [Mass/Vol] 149 mg/dL 74-106 [facility] Comment on above: Fasting Glucose resu lt greater than or equal to 126 mg/dL suggests DIABETES MELLITUS per A.D.A. criteria. Neutrophils (Bld) [#/Vol] 2.5 10*3/uL 2.0-7.7 [facility] Neutrophils/100 WBC (Bld) 54.6 % 47-70 [facility] Potassium [Moles/Vol] 4.5 mmol/L 3.5-5.1 [facility] Protein [Mass/Vol] 7.8 g/dL 6.4-8.2 [facility] Sodium [Moles/Vol] 138 mmol/L 136-145 [facility] WBC (Bld) [#/Vol] 4.6 10*3/uL 4.4-11.0 [facility] Blood erythrocytes count (nu mber/volume)Ordered By: Shayna Malhotra on 04-13-2022 RBC (Bld) [#/Vol] 4.45 10*6/uL 4.2-5.4 [facility] Blood hemoglobin measurement (mass/volume)Ordered By: Shayna Malhotra on 04-13-2022 Hemoglobin (Bld) [Mass/Vol] 12.9 g/dL 12.0-15.0 [facility] Blood lymphocytes/100 leukoc ytesOrdered By: Shayna Malhotra on 04-13-2022 Lymphocytes/100 WBC (Bld) 28.4 % 19-41 [facility] Blood monocytes/100 leukocyt esOrdered By: Shayna Malhotra on 04-13-2022 Monocytes/100 WBC (Bld) 12.9 % 0-10 [facility] Blood platelet mean volumeOr dered By: Shayna Malhorta on 04-13-2022 Platelet mean volume (Bld) [Entitic vol] 11.1 fL 6.2-12.0 [facility] Determination of erythrocyte mean corpuscular volume (MCV)Ordered By: Shayna Malhotra on 04-13-2022 MCV (RBC) [Entitic vol] 90.8 fL 81-99 [facility] Hematocrit Auto (Bld) [Volum e fraction]Ordered By: Shayna Malhotra on 04-13-2022 Hematocrit (Bld) [Volume fraction] 40.4 % 37-47 [facility] Laboratory - Chemistry and C hemistry - challengeOrdered By: Shayna Malhotra on 04-13-2022 ALP [Catalytic activity/Vol] 144 U/L 45-117 [facility] ALT [Catalytic activity/Vol] 32 U/L 13-56 [facility] CO2 [Moles/Vol] 23.0 mmol/L 21.0-32.0 [facility] Globulin (S) [Mass/Vol] 4.8 g/dL 2.2-4.2 [facility] Urea nitrogen/Creatinine [Mass ratio] 15.3 mg/mg 10-20 [facility] Laboratory - Hematology and Cell countsOrdered By: Shayna Malhotra on 04-13-2022 Erythrocyte distribution width (RBC) [Entitic vol] 47.8 fL 35.1-43.9 [facility] Erythrocyte distribution width (RBC) [Ratio] 14.3 % 11.6-14.6 [facility] Immature granulocytes/100 WBC (Bld) 0.400 % 0.0-0.9 [facility] Comment on above: IG% - Immature Granu locytes (promyelocytes, myelocytes and metamyelocytes) > 1% indicates that a LEFT SHIFT is Present. MCH (RBC) [Entitic mass] 29.0 pg 27.0-32.0 [facility] Nucleated RBC/100 WBC (Bld) [Ratio] 0 % 0-5 [facility] MCHC Auto (RBC) [Mass/Vol]Or dered By: Shayna Malhotra on 04-13-2022 MCHC (RBC) [Mass/Vol] 31.9 g/dL 32-36 [facility] No Panel InformationOrdered By: Shayna Malhotra on 04-13-2022 Estimated GFR (MDRD) Amer 78 mL/min >60 [facility] Comment on above: GFR Calc Estimated GFR (MDRD) Non-Af Amer 65 mL/min >60 [facility] Comment on above: Non- GFR Calc Vitamin D 25-Hydroxy 63.8 ng/mL [facility] Comment on above: Vitamin D 25(OH) Sta tus Range Deficiency <20 ng/mL (50nmol/L) Insufficiency 20 - 30 ng/mL (50 - 75 nmol/L) Sufficiency 30 - 100 ng/mL (75 - 250 nmol/L) Toxicity >100 ng/mL (>250 nmol/L) Platelets bldOrdered By: Evi Malhotra on 04-13-2022 Platelets (Bld) [#/Vol] 157 10*3/uL 150-450 [facility] Serum or plasma albumin kim urement (mass/volume)Ordered By: Shayna Malhotra on 04-13-2022 Albumin [Mass/Vol] 3.0 g/dL 3.2-5.0 [facility] Serum or plasma albumin/glob ulin mass ratioOrdered By: Shayna Malhotra on 04-13-2022 Albumin/Globulin [Mass ratio] 0.6 {ratio} 0.9-2.4 [facility] Serum or plasma calcium kim urement (mass/volume)Ordered By: Shayna Malhotra on 04-13-2022 Calcium [Mass/Vol] 9.0 mg/dL 8.5-10.1 [facility] Serum or plasma creatinine m easurement (mass/volume)Ordered By: Shayna Malhotra on 04-13-2022 Creatinine [Mass/Vol] 0.92 mg/dL 0.55-1.02 [facility] Comment on above: The validity of the calculated GFR & GFRAA in patients over 70 years has not been determined. Clinical correlation is essential. Serum or plasma urea nitroge n measurement (mass/volume)Ordered By: Shayna Malhotra on 04-13-2022 Urea nitrogen [Mass/Vol] 14 mg/dL 7-18 [facility] Thin prep Papanicolaou smear with manual screeningOrdered By: Shayna Malhotra on 04-13-2022 Thin prep Papanicolaou smear with manual screening 40 U/L 15-37 [facility] Thin prep Papanicolaou smear with manual screening 9 5-15 [facility] Basophil percentageon 2021 Bilirubin [Mass/Vol] 0.80 mg/dL 0.20-1.00 [facility] Work Phone: Comment on above: For patients on eltr ombopag therapy, use of [employer] [place] TBIL is not recommended. Chloride [Moles/Vol] 103 mmol/L 98-107 [facility] Work Phone: Glucose [Mass/Vol] 218 mg/dL 74-106 [facility] Work Phone: Comment on above: Glucose result great er than or equal to 200 mg/dLsuggests DIABETES MELLITUS per A.D.A. criteria. Potassium [Moles/Vol] 4.2 mmol/L 3.5-5.1 [facility] Work Phone: Protein [Mass/Vol] 8.0 g/dL 6.4-8.2 [facility] Work Phone: Sodium [Moles/Vol] 135 mmol/L 136-145 [facility] Work Phone: WBC (Bld) [#/Vol] 8.6 10*3/uL 4.4-11.0 [facility] Work Phone: Blood erythrocytes count (nu mber/volume)on 01-01-2022 RBC (Bld) [#/Vol] 4.72 10*6/uL 4.2-5.4 [facility] Work Phone: Blood hemoglobin measurement (mass/volume)on 01-01-2022 Hemoglobin (Bld) [Mass/Vol] 13.5 g/dL 12.0-15.0 [facility] Work Phone: Blood platelet mean volumeon 01-01-2022 Platelet mean volume (Bld) [Entitic vol] 11.0 fL 6.2-12.0 [facility] Work Phone: Determination of erythrocyte mean corpuscular volume (MCV)on 01-01-2022 MCV (RBC) [Entitic vol] 86.2 fL 81-99 [facility] Work Phone: Hematocrit Auto (Bld) [Volum e fraction]on 01-01-2022 Hematocrit (Bld) [Volume fraction] 40.7 % 37-47 [facility] Work Phone: Laboratory - Chemistry and C hemistry - challengeon 01-01-2022 ALP [Catalytic activity/Vol] 140 U/L 45-117 [facility] Work Phone: ALT [Catalytic activity/Vol] 35 U/L 13-56 [facility] Work Phone: CO2 [Moles/Vol] 23.0 mmol/L 21.0-32.0 [facility] Work Phone: Globulin (S) [Mass/Vol] 4.9 g/dL 2.2-4.2 [facility] Work Phone: Urea nitrogen/Creatinine [Mass ratio] 13.8 mg/mg 10-20 [facility] Work Phone: Laboratory - Hematology and Cell countson 01-01-2022 Erythrocyte distribution width (RBC) [Entitic vol] 55.6 fL 35.1-43.9 [facility] Work Phone: Erythrocyte distribution width (RBC) [Ratio] 17.5 % 11.6-14.6 [facility] Work Phone: MCH (RBC) [Entitic mass] 28.6 pg 27.0-32.0 [facility] Work Phone: MCHC Auto (RBC) [Mass/Vol]on 01-01-2022 MCHC (RBC) [Mass/Vol] 33.2 g/dL 32-36 [facility] Work Phone: No Panel Informationon 01-01 Estimated GFR (MDRD) Amer 64 mL/min >60 [facility] Work Phone: Comment on above: GFR Calc Estimated GFR (MDRD) Non-Af Amer 53 mL/min >60 [facility] Work Phone: Comment on above: Non- GFR Calc Platelets bldon 01-01-2022 Platelets (Bld) [#/Vol] 141 10*3/uL 150-450 [facility] Work Phone: Serum or plasma albumin kim urement (mass/volume)on 01-01-2022 Albumin [Mass/Vol] 3.1 g/dL 3.2-5.0 [facility] Work Phone: Serum or plasma albumin/glob ulin mass ratioon 01-01-2022 Albumin/Globulin [Mass ratio] 0.6 {ratio} 0.9-2.4 [facility] Work Phone: Serum or plasma calcium kim urement (mass/volume)on 01-01-2022 Calcium [Mass/Vol] 9.3 mg/dL 8.5-10.1 [facility] Work Phone: Serum or plasma creatinine m easurement (mass/volume)on 01-01-2022 Creatinine [Mass/Vol] 1.09 mg/dL 0.55-1.02 [facility] Work Phone: Comment on above: The validity of the calculated GFR & GFRAA in patients over 70 years has not been determined. Clinical correlation is essential. Serum or plasma urea nitroge n measurement (mass/volume)on 01-01-2022 Urea nitrogen [Mass/Vol] 15 mg/dL 7-18 [facility] Work Phone: Thin prep Papanicolaou smear with manual screeningon 01-01-2022 Thin prep Papanicolaou smear with manual screening 36 U/L 15-37 [facility] Work Phone: Thin prep Papanicolaou smear with manual screening 9 5-15 [facility] Work Phone: Whole blood hemoglobin A1c/t otal hemoglobin ratio (mass fraction)on 01-01-2022 HbA1c (Bld) [Mass fraction] 8.7 % 3.8-5.6 [facility] Work Phone: Comment on above: Normal < 5.7 % Predi abetic 5.7 - 6.4 % Diabetic >or= 6.5 % Please note range changes. Basophil percentageon 2021 Bilirubin [Mass/Vol] 0.40 mg/dL 0.20-1.00 [facility] Work Phone: Comment on above: For patients on eltr ombopag therapy, use of [employer] [place] TBIL is not recommended. Chloride [Moles/Vol] 103 mmol/L 98-107 [facility] Work Phone: Glucose [Mass/Vol] 216 mg/dL 74-106 [facility] Work Phone: Comment on above: Glucose result great er than or equal to 200 mg/dLsuggests DIABETES MELLITUS per A.D.A. criteria. Potassium [Moles/Vol] 4.4 mmol/L 3.5-5.1 [facility] Work Phone: Protein [Mass/Vol] 6.5 g/dL 6.4-8.2 [facility] Work Phone: Sodium [Moles/Vol] 136 mmol/L 136-145 [facility] Work Phone: WBC (Bld) [#/Vol] 6.2 10*3/uL 4.4-11.0 [facility] Work Phone: Blood erythrocytes count (nu mber/volume)on 12-01-2021 RBC (Bld) [#/Vol] 4.09 10*6/uL 4.2-5.4 [facility] Work Phone: Blood hemoglobin measurement (mass/volume)on 12-01-2021 Hemoglobin (Bld) [Mass/Vol] 11.3 g/dL 12.0-15.0 [facility] Work Phone: Blood platelet mean volumeon 12-01-2021 Platelet mean volume (Bld) [Entitic vol] 10.8 fL 6.2-12.0 [facility] Work Phone: Determination of erythrocyte mean corpuscular volume (MCV)on 12-01-2021 MCV (RBC) [Entitic vol] 85.8 fL 81-99 [facility] Work Phone: Comment on above: Delta: 79.2 on 11/27-06 Hematocrit Auto (Bld) [Volum e fraction]on 12-01-2021 Hematocrit (Bld) [Volume fraction] 35.1 % 37-47 [facility] Work Phone: Laboratory - Chemistry and C hemistry - challengeon 12-01-2021 ALP [Catalytic activity/Vol] 130 U/L 45-117 [facility] Work Phone: ALT [Catalytic activity/Vol] 48 U/L 13-56 [facility] Work Phone: CK [Catalytic activity/Vol] 27 U/L 26-192 [facility] Work Phone: CO2 [Moles/Vol] 27.0 mmol/L 21.0-32.0 [facility] Work Phone: Globulin (S) [Mass/Vol] 4.2 g/dL 2.2-4.2 [facility] Work Phone: Urea nitrogen/Creatinine [Mass ratio] 31.2 mg/mg 10-20 [facility] Work Phone: Laboratory - Hematology and Cell countson 12-01-2021 Erythrocyte distribution width (RBC) [Entitic vol] 48.3 fL 35.1-43.9 [facility] Work Phone: Erythrocyte distribution width (RBC) [Ratio] 15.4 % 11.6-14.6 [facility] Work Phone: MCH (RBC) [Entitic mass] 27.6 pg 27.0-32.0 [facility] Work Phone: MCHC Auto (RBC) [Mass/Vol]on 12-01-2021 MCHC (RBC) [Mass/Vol] 32.2 g/dL 32-36 [facility] Work Phone: Comment on above: Delta: 34.7 on 11/27 No Panel Informationon 12-01 Estimated GFR (MDRD) Amer 91 mL/min >60 [facility] Work Phone: Comment on above: GFR Calc Estimated GFR (MDRD) Non-Af Amer 76 mL/min >60 [facility] Work Phone: Comment on above: Non- GFR Calc Platelets bldon 12-01-2021 Platelets (Bld) [#/Vol] 231 10*3/uL 150-450 [facility] Work Phone: Serum or plasma albumin kim urement (mass/volume)on 12-01-2021 Albumin [Mass/Vol] 2.3 g/dL 3.2-5.0 [facility] Work Phone: Serum or plasma albumin/glob ulin mass ratioon 12-01-2021 Albumin/Globulin [Mass ratio] 0.5 {ratio} 0.9-2.4 [facility] Work Phone: Serum or plasma calcium kim urement (mass/volume)on 12-01-2021 Calcium [Mass/Vol] 8.8 mg/dL 8.5-10.1 [facility] Work Phone: Serum or plasma creatinine m easurement (mass/volume)on 12-01-2021 Creatinine [Mass/Vol] 0.80 mg/dL 0.55-1.02 [facility] Work Phone: Comment on above: The validity of the calculated GFR & GFRAA in patients over 70 years has not been determined. Clinical correlation is essential. Serum or plasma urea nitroge n measurement (mass/volume)on 12-01-2021 Urea nitrogen [Mass/Vol] 25 mg/dL 7-18 [facility] Work Phone: Thin prep Papanicolaou smear with manual screeningon 12-01-2021 Thin prep Papanicolaou smear with manual screening 69 U/L 15-37 [facility] Work Phone: Thin prep Papanicolaou smear with manual screening 6 5-15 [facility] Work Phone: Whole blood hemoglobin A1c/t otal hemoglobin ratio (mass fraction)on 12-01-2021 HbA1c (Bld) [Mass fraction] 10.6 % 3.8-5.6 [facility] Work Phone: Comment on above: Normal < 5.7 % Predi abetic 5.7 - 6.4 % Diabetic >or= 6.5 % Please note range changes. Basophil percentageon 2021 Bilirubin [Mass/Vol] 0.40 mg/dL 0.20-1.00 [facility] Work Phone: Comment on above: For patients on eltr ombopag therapy, use of [employer] [place] TBIL is not recommended. Chloride [Moles/Vol] 102 mmol/L 98-107 [facility] Work Phone: Glucose [Mass/Vol] 256 mg/dL 74-106 [facility] Work Phone: Comment on above: Glucose result great er than or equal to 200 mg/dLsuggests DIABETES MELLITUS per A.D.A. criteria. Potassium [Moles/Vol] 4.4 mmol/L 3.5-5.1 [facility] Work Phone: Protein [Mass/Vol] 7.0 g/dL 6.4-8.2 [facility] Work Phone: Sodium [Moles/Vol] 133 mmol/L 136-145 [facility] Work Phone: WBC (Bld) [#/Vol] 5.6 10*3/uL 4.4-11.0 [facility] Work Phone: Blood erythrocytes count (nu mber/volume)on 11-27-2021 RBC (Bld) [#/Vol] 4.47 10*6/uL 4.2-5.4 [facility] Work Phone: Blood hemoglobin measurement (mass/volume)on 11-27-2021 Hemoglobin (Bld) [Mass/Vol] 12.3 g/dL 12.0-15.0 [facility] Work Phone: Blood platelet mean volumeon 11-27-2021 Platelet mean volume (Bld) [Entitic vol] 11.9 fL 6.2-12.0 [facility] Work Phone: Determination of erythrocyte mean corpuscular volume (MCV)on 11-27-2021 MCV (RBC) [Entitic vol] 79.2 fL 81-99 [facility] Work Phone: Comment on above: Delta: 83.4 on 11/24-0534 Hematocrit Auto (Bld) [Volum e fraction]on 11-27-2021 Hematocrit (Bld) [Volume fraction] 35.4 % 37-47 [facility] Work Phone: Laboratory - Chemistry and C hemistry - challengeon 11-27-2021 ALP [Catalytic activity/Vol] 127 U/L 45-117 [facility] Work Phone: ALT [Catalytic activity/Vol] 28 U/L 13-56 [facility] Work Phone: CO2 [Moles/Vol] 25.0 mmol/L 21.0-32.0 [facility] Work Phone: Globulin (S) [Mass/Vol] 4.6 g/dL 2.2-4.2 [facility] Work Phone: Urea nitrogen/Creatinine [Mass ratio] 15.9 mg/mg 10-20 [facility] Work Phone: Laboratory - Hematology and Cell countson 11-27-2021 Erythrocyte distribution width (RBC) [Entitic vol] 41.4 fL 35.1-43.9 [facility] Work Phone: Erythrocyte distribution width (RBC) [Ratio] 14.5 % 11.6-14.6 [facility] Work Phone: MCH (RBC) [Entitic mass] 27.5 pg 27.0-32.0 [facility] Work Phone: MCHC Auto (RBC) [Mass/Vol]on 11-27-2021 MCHC (RBC) [Mass/Vol] 34.7 g/dL 32-36 [facility] Work Phone: No Panel Informationon 11-27 Estimated GFR (MDRD) Amer 108 mL/min >60 [facility] Work Phone: Comment on above: GFR Calc Estimated GFR (MDRD) Non-Af Amer 89 mL/min >60 [facility] Work Phone: Comment on above: Non- GFR Calc Platelets bldon 11-27-2021 Platelets (Bld) [#/Vol] 154 10*3/uL 150-450 [facility] Work Phone: Serum or plasma albumin kim urement (mass/volume)on 11-27-2021 Albumin [Mass/Vol] 2.4 g/dL 3.2-5.0 [facility] Work Phone: Serum or plasma albumin/glob ulin mass ratioon 11-27-2021 Albumin/Globulin [Mass ratio] 0.5 {ratio} 0.9-2.4 [facility] Work Phone: Serum or plasma calcium kim urement (mass/volume)on 11-27-2021 Calcium [Mass/Vol] 8.9 mg/dL 8.5-10.1 [facility] Work Phone: Serum or plasma creatinine m easurement (mass/volume)on 11-27-2021 Creatinine [Mass/Vol] 0.69 mg/dL 0.55-1.02 [facility] Work Phone: Comment on above: The validity of the calculated GFR & GFRAA in patients over 70 years has not been determined. Clinical correlation is essential. Serum or plasma urea nitroge n measurement (mass/volume)on 11-27-2021 Urea nitrogen [Mass/Vol] 11 mg/dL 7-18 [facility] Work Phone: Thin prep Papanicolaou smear with manual screeningon 11-27-2021 Thin prep Papanicolaou smear with manual screening 31 U/L 15-37 [facility] Work Phone: Thin prep Papanicolaou smear with manual screening 6 5-15 [facility] Work Phone: Absolute lymphocyte counton 11-24-2021 Lymphocytes Auto (Unsp spec) [#/Vol] 1.01 10*3/uL 0.83-4.51 [facility] Work Phone: Basophil percentageon 2021 Basophil percentage 3.5 mg/dL 2.5-4.[address] [facility]: Basophils/100 WBC (Bld) 0.4 % 0-1 [facility] Work Phone: Bilirubin [Mass/Vol] 0.40 mg/dL 0.20-1.00 [facility] Work Phone: Comment on above: For patients on eltr ombopag therapy, use of [employer] [place] TBIL is not recommended. Chloride [Moles/Vol] 105 mmol/L 98-107 [facility] Work Phone: Eosinophils/100 WBC (Bld) 2.3 % 0-5 [facility] Work Phone: Glucose [Mass/Vol] 321 mg/dL 74-106 [facility] Work Phone: Comment on above: Glucose result great er than or equal to 200 mg/dLsuggests DIABETES MELLITUS per A.D.A. criteria. Neutrophils (Bld) [#/Vol] 3.8 10*3/uL 2.0-7.7 [facility] Work Phone: Neutrophils/100 WBC (Bld) 66.8 % 47-70 [facility] Work Phone: Potassium [Moles/Vol] 4.2 mmol/L 3.5-5.1 [facility] Work Phone: Protein [Mass/Vol] 6.6 g/dL 6.4-8.2 [facility] Work Phone: Sodium [Moles/Vol] 133 mmol/L 136-145 [facility] Work Phone: WBC (Bld) [#/Vol] 5.6 10*3/uL 4.4-11.0 [facility] Work Phone: Blood erythrocytes count (nu mber/volume)on 11-24-2021 RBC (Bld) [#/Vol] 3.91 10*6/uL 4.2-5.[address] [facility] [facility] Work Phone: Blood hemoglobin measurement (mass/volume)on 11-24-2021 Hemoglobin (Bld) [Mass/Vol] 11.0 g/dL 12.0-15.0 [facility] Work Phone: Blood lymphocytes/100 leukoc yteson 11-24-2021 Lymphocytes/100 WBC (Bld) 17.9 % 19-41 [facility] Work Phone: Blood monocytes/100 leukocyt eson 11-24-2021 Monocytes/100 WBC (Bld) 12.1 % 0-10 [facility] Work Phone: Blood platelet mean volumeon 11-24-2021 Platelet mean volume (Bld) [Entitic vol] 11.4 fL 6.2-12.0 [facility] Work Phone: Determination of erythrocyte mean corpuscular volume (MCV)on 11-24-2021 MCV (RBC) [Entitic vol] 83.4 fL 81-99 [facility] Work Phone: Glucose Glucometer (BldC) [M ass/Vol]on 11-24-2021 Glucose [Mass/Vol] 307 mg/dL 74-106 [facility] Work Phone: Comment on above: MANAGEMENT OF PATIEN T CARE PER NURSING PROTOCOL Glucose [Mass/Vol] 339 mg/dL 74-106 [facility] Work Phone: Comment on above: MANAGEMENT OF PATIEN T CARE PER NURSING PROTOCOL Hematocrit Auto (Bld) [Volum e fraction]on 11-24-2021 Hematocrit (Bld) [Volume fraction] 32.6 % 37-47 [facility] Work Phone: Laboratory - Chemistry and C hemistry - challengeon 11-24-2021 ALP [Catalytic activity/Vol] 116 U/L 45-117 [facility] Work Phone: ALT [Catalytic activity/Vol] 33 U/L 13-56 [facility] Work Phone: CK [Catalytic activity/Vol] 500 U/L 26-192 [facility] Work Phone: CO2 [Moles/Vol] 22.0 mmol/L 21.0-32.0 [facility] Work Phone: Globulin (S) [Mass/Vol] 4.4 g/dL 2.2-4.2 [facility] Work Phone: Magnesium [Mass/Vol] 2.3 mg/dL 1.6-2.6 [facility] Work Phone: Urea nitrogen/Creatinine [Mass ratio] 24.3 mg/mg 10-20 [facility] Work Phone: Laboratory - Hematology and Cell countson 11-24-2021 Erythrocyte distribution width (RBC) [Entitic vol] 45.1 fL 35.1-43.9 [facility] Work Phone: Erythrocyte distribution width (RBC) [Ratio] 14.9 % 11.6-14.6 [facility] Work Phone: Immature granulocytes/100 WBC (Bld) 0.500 % 0.0-0.9 [facility] Work Phone: Comment on above: IG% - Immature Granu locytes (promyelocytes, myelocytes and metamyelocytes) > 1% indicates that a LEFT SHIFT is Present. MCH (RBC) [Entitic mass] 28.1 pg 27.0-32.0 [facility] Work Phone: Nucleated RBC/100 WBC (Bld) [Ratio] 0 % 0-5 [facility] Work Phone: MCHC Auto (RBC) [Mass/Vol]on 11-24-2021 MCHC (RBC) [Mass/Vol] 33.7 g/dL 32-36 [facility] Work Phone: No Panel Informationon 11-24 Estimated Creatinine Clearance Calc 51.54 ml/min [facility] Work Phone: Estimated GFR (MDRD) Amer 76 mL/min >60 [facility] Work Phone: Comment on above: GFR Calc Estimated GFR (MDRD) Non-Af Amer 62 mL/min >60 [facility] Work Phone: Comment on above: Non- GFR Calc Platelets bldon 11-24-2021 Platelets (Bld) [#/Vol] 107 10*3/uL 150-450 [facility] Work Phone: Serum or plasma albumin kim urement (mass/volume)on 11-24-2021 Albumin [Mass/Vol] 2.2 g/dL 3.2-5.0 [facility] Work Phone: Serum or plasma albumin/glob ulin mass ratioon 11-24-2021 Albumin/Globulin [Mass ratio] 0.5 {ratio} 0.9-2.4 [facility] Work Phone: Serum or plasma calcium kim urement (mass/volume)on 11-24-2021 Calcium [Mass/Vol] 8.5 mg/dL 8.5-10.1 [facility] Work Phone: Serum or plasma creatinine m easurement (mass/volume)on 11-24-2021 Creatinine [Mass/Vol] 0.94 mg/dL 0.55-1.02 [facility] Work Phone: Comment on above: The validity of the calculated GFR & GFRAA in patients over 70 years has not been determined. Clinical correlation is essential. Serum or plasma urea nitroge n measurement (mass/volume)on 11-24-2021 Urea nitrogen [Mass/Vol] 23 mg/dL 7-18 [facility] Work Phone: Thin prep Papanicolaou smear with manual screeningon 11-24-2021 Thin prep Papanicolaou smear with manual screening 49 U/L 15-37 [facility] Work Phone: Thin prep Papanicolaou smear with manual screening 6 5-15 [facility] Work Phone: Absolute lymphocyte counton 11-22-2021 Lymphocytes Auto (Unsp spec) [#/Vol] 0.27 10*3/uL 0.83-4.51 [facility] Work Phone: Basophil percentageon 2021 Lactate [Moles/Vol] 2.7 mmol/L 0.4-2.0 [facility] Work Phone: Comment on above: Critical Result(s) C alled at: 19:01:05 11/22/2021 by: Sintia Ely Results read back by same. Basophil percentage >100 SEEN /hpf 0-5 [facility] Work Phone: Lactate [Moles/Vol] 4.1 mmol/L 0.4-2.0 [facility] Work Phone: Comment on above: Critical Result(s) C alled at: 14:35:39 11/22/2021 by: Derik Florez. Milad Cordova RN (ER). Results read back by same. Basophils/100 WBC (Bld) 0.3 % 0-1 [facility] Work Phone: Bilirubin [Mass/Vol] 1.00 mg/dL 0.20-1.00 [facility] Work Phone: Comment on above: For patients on eltr ombopag therapy, use of Dimension [place] TBIL is not recommended. Chloride [Moles/Vol] 97 mmol/L 98-107 [facility] Work Phone: Eosinophils/100 WBC (Bld) 0.0 % 0-5 [facility] Work Phone: Glucose [Mass/Vol] 358 mg/dL 74-106 [facility] Work Phone: Comment on above: Glucose result great er than or equal to 200 mg/dLsuggests DIABETES MELLITUS per A.D.A. criteria. Neutrophils (Bld) [#/Vol] 2.6 10*3/uL 2.0-7.7 [facility] Work Phone: Neutrophils/100 WBC (Bld) 89.3 % 47-70 [facility] Work Phone: Potassium [Moles/Vol] 4.9 mmol/L 3.5-5.1 [facility] Work Phone: Comment on above: Moderate Hemolysis, Result may be falsely increased. Protein [Mass/Vol] 7.8 g/dL 6.4-8.2 [facility] Work Phone: Sodium [Moles/Vol] 130 mmol/L 136-145 [facility] Work Phone: WBC (Bld) [#/Vol] 2.9 10*3/uL 4.4-11.0 [facility] Work Phone: Bilirubin Test strip Ql (U)o n 11-22-2021 Bilirubin Ql (U) Negative Negative [facility] Work Phone: Blood erythrocytes count (nu mber/volume)on 11-22-2021 RBC (Bld) [#/Vol] 4.66 10*6/uL 4.2-5.4 [facility] Work Phone: Blood hemoglobin measurement (mass/volume)on 11-22-2021 Hemoglobin (Bld) [Mass/Vol] 12.9 g/dL 12.0-15.0 [facility] Work Phone: Blood lymphocytes/100 leukoc yteson 11-22-2021 Lymphocytes/100 WBC (Bld) 9.4 % 19-41 [facility] Work Phone: Blood manual differential co mment interpretation (narrative result)on 11-22-2021 Manual differential comment Neftali (Bld) [Interp] SCANNED [facility] Work Phone: Comment on above: FEW BANDS NOTED Blood monocytes/100 leukocyt eson 11-22-2021 Monocytes/100 WBC (Bld) 0.7 % 0-10 [facility] Work Phone: Blood platelet mean volumeon 11-22-2021 Platelet mean volume (Bld) [Entitic vol] 11.0 fL 6.2-12.0 [facility] Work Phone: Determination of erythrocyte mean corpuscular volume (MCV)on 11-22-2021 MCV (RBC) [Entitic vol] 83.7 fL 81-99 [facility] Work Phone: Hematocrit Auto (Bld) [Volum e fraction]on 11-22-2021 Hematocrit (Bld) [Volume fraction] 39.0 % 37-47 [facility] Work Phone: INR in Blood by Coagulation assayon 11-22-2021 INR Coag (Bld) [Relative time] 1.6 {INR} [facility] Work Phone: Ketones Test strip Ql (U)on 11-22-2021 Ketones Ql (U) 15 mg/dl Negative [facility] Work Phone: Laboratory - Chemistry and C hemistry - challengeon 11-22-2021 ALP [Catalytic activity/Vol] 170 U/L 45-117 [facility] Work Phone: ALT [Catalytic activity/Vol] 33 U/L 13-56 [facility] Work Phone: CO2 [Moles/Vol] 22.0 mmol/L 21.0-32.0 [facility] Work Phone: Globulin (S) [Mass/Vol] 5.0 g/dL 2.2-4.2 [facility] Work Phone: Urea nitrogen/Creatinine [Mass ratio] 19.1 mg/mg 10-20 [facility] Work Phone: Laboratory - Coagulationon 0 11-22-2021 aPTT Coag (Bld) [Time] 33.5 s 24.1-36.2 [facility] Work Phone: PT Coag (PPP) [Time] 18.6 s 11.7-14.9 [facility] Work Phone: Laboratory - Hematology and Cell countson 11-22-2021 Erythrocyte distribution width (RBC) [Entitic vol] 44.4 fL 35.1-43.9 [facility] Work Phone: Erythrocyte distribution width (RBC) [Ratio] 14.6 % 11.6-14.6 [facility] Work Phone: Immature granulocytes/100 WBC (Bld) 0.300 % 0.0-0.9 [facility] Work Phone: Comment on above: IG% - Immature Granu locytes (promyelocytes, myelocytes and metamyelocytes) > 1% indicates that a LEFT SHIFT is Present. MCH (RBC) [Entitic mass] 27.7 pg 27.0-32.0 [facility] Work Phone: Nucleated RBC/100 WBC (Bld) [Ratio] 0 % 0-5 [facility] Work Phone: Laboratory - Microbiology an d Antimicrobial susceptibilityon 11-22-2021 SARS-CoV-2 (COVID-19) RNA SALLY+probe Ql (Unsp spec) Not detected Not Detect [facility] Work Phone: Comment on above: Normal [...] 11-22-2021 MCHC (RBC) [Mass/Vol] 33.1 g/dL 32-36 [facility] Work Phone: Mucus LM Ql (Urine sed)on Mucus Ql (Urine sed) 0 SEEN /hpf [facility] Work Phone: Nitrite Test strip Ql (U)on 11-22-2021 Nitrite Ql (U) Negative Negative [facility] Work Phone: No Panel Informationon 11-22 Troponin I High Sensitivity 217 pg/mL 3.0-54.0 [facility] Work Phone: Comment on above: Critical Result(s) C alled at: 20:27:57 11/22/2021 by: Sintia Hernandez to Anthony Butcher. Results read back by same. Please Note: New Test Units and Gender Specific Reference Ranges. For more information see Policy Stat Procedure [place] High Sensitivity Troponin (TNIH) and attachments. Troponin I High Sensitivity 274 pg/mL 3.0-54.0 [facility] Work Phone: Comment on above: Critical Result(s) C alled at: 17:12:08 11/22/2021 by: Sintia Hernandez by Lila Cordova. Results read back by same. Please Note: New Test Units and Gender Specific Reference Ranges. For more information see Policy Stat Procedure [place] High Sensitivity Troponin (TNIH) and attachments. Estimated Creatinine Clearance Calc 34.36 ml/min [facility] Work Phone: Estimated GFR (MDRD) Amer 48 mL/min >60 [facility] Work Phone: Comment on above: GFR Calc Estimated GFR (MDRD) Non-Af Amer 39 mL/min >60 [facility] Work Phone: Comment on above: Non- GFR Calc Platelets bldon 11-22-2021 Platelets (Bld) [#/Vol] 121 10*3/uL 150-450 [facility] Work Phone: Protein Test strip Ql (U)on 11-22-2021 Protein Ql (U) 100 mg/dl Negative [facility] Work Phone: Review by pathologiston 11-04 Pathologist review Neftali (Unsp spec) [Interp] October indira [facility] Work Phone: Pathologist review Neftali (Unsp spec) [Interp] Reviewed [facility] Work Phone: Comment on above: Previous reported re sult: Analisa jacobson Edited by: RGORUBENS on 11/23/21:1334LeukopeniaMild Thrombocytopenia.Clinical correlation necessary.Cedric Cardoza M.D. 11/23/21 AMENDED REPORT 11/23/21 1334 PATH REV previously reported as: October Serum or plasma albumin kim urement (mass/volume)on 11-22-2021 Albumin [Mass/Vol] 2.8 g/dL 3.2-5.0 [facility] Work Phone: Serum or plasma albumin/glob ulin mass ratioon 11-22-2021 Albumin/Globulin [Mass ratio] 0.6 {ratio} 0.9-2.4 [facility] Work Phone: Serum or plasma calcium kim urement (mass/volume)on 11-22-2021 Calcium [Mass/Vol] 8.9 mg/dL 8.5-10.1 [facility] Work Phone: Serum or plasma creatinine m easurement (mass/volume)on 11-22-2021 Creatinine [Mass/Vol] 1.41 mg/dL 0.55-1.02 [facility] Work Phone: Comment on above: The validity of the calculated GFR & GFRAA in patients over 70 years has not been determined. Clinical correlation is essential. Serum or plasma urea nitroge n measurement (mass/volume)on 11-22-2021 Urea nitrogen [Mass/Vol] 27 mg/dL 7-18 [facility] Work Phone: Squamous epithelial cells de tection in urine sediment by light microscopyon 11-22-2021 Epithelial cells.squamous LM Ql (Urine sed) 0 SEEN /hpf 5-10 [facility] Work Phone: Thin prep Papanicolaou smear with manual screeningon 11-22-2021 Thin prep Papanicolaou smear with manual screening 65 U/L 15-37 [facility] Work Phone: Comment on above: Moderate Hemolysis, Result may be falsely increased. Thin prep Papanicolaou smear with manual screening 11 5-15 [facility] Work Phone: Urine blood detectionon 11-04 RBC Ql (U) 250 /ul Negative [facility] Work Phone: RBC Ql (U) 0 SEEN /hpf 0-5 [facility] Work Phone: Urine clarityon 11-22-2021 Clarity (U) Cloudy Clear [facility] Work Phone: Urine color determinationon 11-22-2021 Color (U) Yellow Yellow [facility] Work Phone: Urine glucose detectionon Glucose Ql (U) 250 mg/dl Normal [facility] Work Phone: Urine leukocyte esterase det ection by dipstickon 11-22-2021 Leukocyte esterase Test strip Ql (U) 500 /ul Negative [facility] Work Phone: Urine pHon 11-22-2021 pH (U) 6.0 [pH] 5.0 - 8.0 [facility] Work Phone: Urine sediment bacteria coun t by microscopy (number/high power field)on 11-22-2021 Bacteria LM.HPF (Urine sed) [#/Area] 3 /[HPF] None Seen [facility] Work Phone: Urine specific gravity measu rementon 11-22-2021 Specific gravity (U) [Rel density] 1.020 1.002-1.03 0 [facility] Work Phone: Urobilinogen Auto test strip Ql (U)on 11-22-2021 Urobilinogen Ql (U) Normal mg/dl Normal [facility] Work Phone: Whole blood hemoglobin A1c/t otal hemoglobin ratio (mass fraction)on 11-22-2021 HbA1c (Bld) [Mass fraction] 10.2 % 3.8-5.6 [facility] Work Phone: Comment on above: Normal < 5.7 % Predi abetic 5.7 - 6.4 % Diabetic >or= 6.5 % Please note range changes. Whole blood hemoglobin A1c/t otal hemoglobin ratio (mass fraction)on 10-27-2021 HbA1c (Bld) [Mass fraction] 8.3 % 3.8-5.6 [facility] Work Phone: Comment on above: Normal < 5.7 % Predi abetic 5.7 - 6.4 % Diabetic >or= 6.5 % Please note range changes. Absolute lymphocyte counton 10-13-2021 Lymphocytes Auto (Unsp spec) [#/Vol] 1.22 10*3/uL 0.83-4.51 [facility] Work Phone: Basophil percentageon 2021 Basophils/100 WBC (Bld) 0.3 % 0-1 [facility] Work Phone: Bilirubin [Mass/Vol] 0.50 mg/dL 0.20-1.00 [facility] Work Phone: Comment on above: For patients on eltr ombopag therapy, use of Dimension [place] TBIL is not recommended. Chloride [Moles/Vol] 102 mmol/L 98-107 [facility] Work Phone: Eosinophils/100 WBC (Bld) 1.7 % 0-5 [facility] Work Phone: Glucose [Mass/Vol] 259 mg/dL 74-106 [facility] Work Phone: Comment on above: Glucose result great er than or equal to 200 mg/dLsuggests DIABETES MELLITUS per A.D.A. criteria. Neutrophils (Bld) [#/Vol] 5.1 10*3/uL 2.0-7.7 [facility] Work Phone: Neutrophils/100 WBC (Bld) 70.8 % 47-70 [facility] Work Phone: Potassium [Moles/Vol] 4.4 mmol/L 3.5-5.1 [facility] Work Phone: Protein [Mass/Vol] 7.4 g/dL 6.4-8.2 [facility] Work Phone: Sodium [Moles/Vol] 134 mmol/L 136-145 [facility] Work Phone: WBC (Bld) [#/Vol] 7.1 10*3/uL 4.4-11.0 [facility] Work Phone: Blood erythrocytes count (nu mber/volume)on 10-13-2021 RBC (Bld) [#/Vol] 4.21 10*6/uL 4.2-5.4 [facility] Work Phone: Blood hemoglobin measurement (mass/volume)on 10-13-2021 Hemoglobin (Bld) [Mass/Vol] 12.1 g/dL 12.0-15.0 [facility] Work Phone: Blood lymphocytes/100 leukoc yteson 10-13-2021 Lymphocytes/100 WBC (Bld) 17.1 % 19-41 [facility] Work Phone: Blood monocytes/100 leukocyt eson 10-13-2021 Monocytes/100 WBC (Bld) 9.8 % 0-10 [facility] Work Phone: Blood platelet mean volumeon 10-13-2021 Platelet mean volume (Bld) [Entitic vol] 10.7 fL 6.2-12.0 [facility] Work Phone: Determination of erythrocyte mean corpuscular volume (MCV)on 10-13-2021 MCV (RBC) [Entitic vol] 86.2 fL 81-99 [facility] Work Phone: Hematocrit Auto (Bld) [Volum e fraction]on 10-13-2021 Hematocrit (Bld) [Volume fraction] 36.3 % 37-47 [facility] Work Phone: Laboratory - Chemistry and C hemistry - challengeon 10-13-2021 ALP [Catalytic activity/Vol] 169 U/L 45-117 [facility] Work Phone: ALT [Catalytic activity/Vol] 31 U/L 13-56 [facility] Work Phone: CO2 [Moles/Vol] 25.0 mmol/L 21.0-32.0 [facility] Work Phone: Globulin (S) [Mass/Vol] 4.5 g/dL 2.2-4.2 [facility] Work Phone: Urea nitrogen/Creatinine [Mass ratio] 14.3 mg/mg 10-20 [facility] Work Phone: Laboratory - Hematology and Cell countson 10-13-2021 Erythrocyte distribution width (RBC) [Entitic vol] 45.6 fL 35.1-43.9 [facility] Work Phone: Erythrocyte distribution width (RBC) [Ratio] 14.4 % 11.6-14.6 [facility] Work Phone: Immature granulocytes/100 WBC (Bld) 0.300 % 0.0-0.9 [facility] Work Phone: Comment on above: IG% - Immature Granu locytes (promyelocytes, myelocytes and metamyelocytes) > 1% indicates that a LEFT SHIFT is Present. MCH (RBC) [Entitic mass] 28.7 pg 27.0-32.0 [facility] Work Phone: Nucleated RBC/100 WBC (Bld) [Ratio] 0 % 0-5 [facility] Work Phone: MCHC Auto (RBC) [Mass/Vol]on 10-13-2021 MCHC (RBC) [Mass/Vol] 33.3 g/dL 32-36 [facility] Work Phone: No Panel Informationon 10-13 Estimated GFR (MDRD) Amer 79 mL/min >60 [facility] Work Phone: Comment on above: GFR Calc Estimated GFR (MDRD) Non-Af Amer 66 mL/min >60 [facility] Work Phone: Comment on above: Non- GFR Calc Vitamin D 25-Hydroxy 67.4 ng/mL [facility] Work Phone: Comment on above: Vitamin D 25(OH) Sta tus Range Deficiency <20 ng/mL (50nmol/L) Insufficiency 20 - 30 ng/mL (50 - 75 nmol/L) Sufficiency 30 - 100 ng/mL (75 - 250 nmol/L) Toxicity >100 ng/mL (>250 nmol/L) Platelets bldon 10-13-2021 Platelets (Bld) [#/Vol] 158 10*3/uL 150-450 [facility] Work Phone: Serum or plasma albumin kim urement (mass/volume)on 10-13-2021 Albumin [Mass/Vol] 2.9 g/dL 3.2-5.0 [facility] Work Phone: Serum or plasma albumin/glob ulin mass ratioon 10-13-2021 Albumin/Globulin [Mass ratio] 0.6 {ratio} 0.9-2.4 [facility] Work Phone: Serum or plasma calcium kim urement (mass/volume)on 10-13-2021 Calcium [Mass/Vol] 8.8 mg/dL 8.5-10.1 [facility] Work Phone: Serum or plasma creatinine m easurement (mass/volume)on 10-13-2021 Creatinine [Mass/Vol] 0.91 mg/dL 0.55-1.02 [facility] Work Phone: Comment on above: The validity of the calculated GFR & GFRAA in patients over 70 years has not been determined. Clinical correlation is essential. Serum or plasma urea nitroge n measurement (mass/volume)on 10-13-2021 Urea nitrogen [Mass/Vol] 13 mg/dL 7-18 [facility] Work Phone: Thin prep Papanicolaou smear with manual screeningon 10-13-2021 Thin prep Papanicolaou smear with manual screening 28 U/L 15-37 [facility] Work Phone: Thin prep Papanicolaou smear with manual screening 7 5-15 [facility] Work Phone: CNOVSPon 10-02-2021 CNOVSP Visit (SP) Office (AGGJOANNE) ----- VIDA NINA ([id number]) 1950 F Date Time Provider Department 10/02/21 1:00 PM JENNIFER CUEVAS During your visit today, we recorded the following information about you: Temperature Pulse Respiration Blood pressure 97.4 degrees 103/minute 20/minute 152/85 Weight Height 136.5 kg 1.651 m Moriah Aldridge RN 10/02/2021 12:52 PM Signed Patient arrived amb AANDOx4 in [facility] for post op visit. Patient admits to pain in abd and lower back resolved since surgery. Pt denies any new concerns, today. Pt here with Marguerite, sepideh. Enc and support provided. JESUS Lynch MD 12/01/2021 8:04 AM Signed Gynecologic Oncology [facility] Follow up visit Date of service: 10/02/2021 PROBLEM/CC: Vida Nina presents for a post-op visit. SURGICAL PATHOLOGY [[id number]] Collected: 09/07/21 1104 Order Status: Completed Specimen: Tissue from UTERUS, CERVIX, BILATERAL FALLOPIAN TUBES AND BILATERAL OVARIES Updated: 09/11/21 1109 Case Report -- Surgical Pathology Report ? Case: [id number] ? Authorizing Provider: ?Jennifer Cuevas MD ? [...] A11 and A16 were reviewed at the [facility] gynecologic pathology consensus conference via telepathology on 09/09/[address] Lupe Younger and Andra Franco agree with the diagnosis of acute salpingitis. ? Laboratory Developed Test (LDT) Disclaimer: Performance characteristics of immunohistochemical, immunofluorescent and chromogenic in-situ hybridization tests have been determined by the performing laboratory within [facility]?s Saul Ganesh [facility] Pathology and Laboratory Medicine [place] ([facility], [facility], [facility] or [facility]) in a manner consistent with CLIA requirements. [...] ?Not iden (more content not included)... Normal [facility] Glucose Glucometer (BldC) [M ass/Vol]on 09-22-2021 Glucose [Mass/Vol] 145 mg/dL 74-106 [facility] Work Phone: Comment on above: MANAGEMENT OF PATIEN T CARE PER NURSING PROTOCOL CNPElva 09-21-2021 CNPN Telephone (ÁNGEL Sprague) ----- VIDA NINA ([id number]) 1950 F Date Time Provider Department 09/21/21 JENNIFER CUEVAS During your visit today, we recorded the following information about you: Jeffrey Ferris 09/21/2021 12:15 PM Signed Spoke to Nurse Bernadine from [facility] stated that the patient is in [...] Rash Date Reviewed: 09/07/2021 Reviewed by: Bertha Stringer, JESUS - Fully Assessed Reason for Visit: Appointment [...] ERYTHEMATOSUS [M32.9] 07/15/2005 MYALGIA AND MYOSITIS NOS [[id number]] 07/15/2005 Elevated transaminase level [R74.01] 09/04/2014 Elevated blood sugar [R73.9] 09/04/2014 Mood disorder (HCC) [F39] 09/04/2014 Hard to intubate [T88.4XXA] 09/07/2021 Encounter for postoperative care [Z48.89] 09/07/2021 Endometrial cancer (HCC) [C54.1] 09/08/2021 Encounter Status:Closed by JEFFREY FERRIS on 09/21/21 [facility] Absolute lymphocyte counton 09-20-2021 Lymphocytes Auto (Unsp spec) [#/Vol] 0.99 10*3/uL 0.83-4.51 [facility] Work Phone: Basophil percentageon 2021 Basophils/100 WBC (Bld) 0.6 % 0-1 [facility] Work Phone: Chloride [Moles/Vol] 109 mmol/L 98-107 [facility] Work Phone: Eosinophils/100 WBC (Bld) 2.6 % 0-5 [facility] Work Phone: Glucose [Mass/Vol] 211 mg/dL 74-106 [facility] Work Phone: Comment on above: Glucose result great er than or equal to 200 mg/dLsuggests DIABETES MELLITUS per A.D.A. criteria. Neutrophils (Bld) [#/Vol] 3.4 10*3/uL 2.0-7.7 [facility] Work Phone: Neutrophils/100 WBC (Bld) 67.6 % 47-70 [facility] Work Phone: Potassium [Moles/Vol] 4.4 mmol/L 3.5-5.1 [facility] Work Phone: Sodium [Moles/Vol] 138 mmol/L 136-145 [facility] Work Phone: WBC (Bld) [#/Vol] 5.0 10*3/uL 4.4-11.0 [facility] Work Phone: Blood erythrocytes count (nu mber/volume)on 09-20-2021 RBC (Bld) [#/Vol] 4.50 10*6/uL 4.2-5.4 [facility] Work Phone: Blood hemoglobin measurement (mass/volume)on 09-20-2021 Hemoglobin (Bld) [Mass/Vol] 12.8 g/dL 12.0-15.0 [facility] Work Phone: Blood lymphocytes/100 leukoc yteson 09-20-2021 Lymphocytes/100 WBC (Bld) 19.7 % 19-41 [facility] Work Phone: Blood monocytes/100 leukocyt eson 09-20-2021 Monocytes/100 WBC (Bld) 9.1 % 0-10 [facility] Work Phone: Blood platelet mean volumeon 09-20-2021 Platelet mean volume (Bld) [Entitic vol] 9.8 fL 6.2-12.0 [facility] Work Phone: Determination of erythrocyte mean corpuscular volume (MCV)on 09-20-2021 MCV (RBC) [Entitic vol] 87.6 fL 81-99 [facility] Work Phone: Hematocrit Auto (Bld) [Volum e fraction]on 09-20-2021 Hematocrit (Bld) [Volume fraction] 39.4 % 37-47 [facility] Work Phone: Laboratory - Chemistry and C hemistry - challengeon 09-20-2021 CO2 [Moles/Vol] 24.0 mmol/L 21.0-32.0 [facility] Work Phone: Natriuretic peptide B (Bld) [Mass/Vol] 43.0 pg/mL 0-100 [facility] Work Phone: Urea nitrogen/Creatinine [Mass ratio] 14.0 mg/mg 10-20 [facility] Work Phone: Laboratory - Hematology and Cell countson 09-20-2021 Erythrocyte distribution width (RBC) [Entitic vol] 47.4 fL 35.1-43.9 [facility] Work Phone: Erythrocyte distribution width (RBC) [Ratio] 14.7 % 11.6-14.6 [facility] Work Phone: Immature granulocytes/100 WBC (Bld) 0.400 % 0.0-0.9 [facility] Work Phone: Comment on above: IG% - Immature Granu locytes (promyelocytes, myelocytes and metamyelocytes) > 1% indicates that a LEFT SHIFT is Present. MCH (RBC) [Entitic mass] 28.4 pg 27.0-32.0 [facility] Work Phone: Nucleated RBC/100 WBC (Bld) [Ratio] 0 % 0-5 [facility] Work Phone: MCHC Auto (RBC) [Mass/Vol]on 09-20-2021 MCHC (RBC) [Mass/Vol] 32.5 g/dL 32-36 [facility] Work Phone: No Panel Informationon 09-20 Troponin I High Sensitivity < 3 pg/mL 3.0-54.0 [facility] Work Phone: Comment on above: Please Note: New Emma t Units and Gender Specific Reference Ranges. For more information see Policy Stat Procedure [place] High Sensitivity Troponin (TNIH) and attachments. D-Dimer Quantitative (PE/DVT) 2.47 FEU/ug/m 0.27-0.49 [facility] Work Phone: Comment on above: D-Dimer ELEVATED (>0 .49): Additional studies and clinicalassessments are indicated to conclude diagnosis of:Deep Vein Thrombosis (DVT) or Pulmonary Embolism (PE)CRITICAL VALUE VERIFIED. CALLED TO [id number]/17/22 0853 Taniya Burden.RESULTS READ BACK BY SAME . Estimated Creatinine Clearance Calc 56.34 ml/min [facility] Work Phone: Estimated GFR (MDRD) Amer 85 mL/min >60 [facility] Work Phone: Comment on above: GFR Calc Estimated GFR (MDRD) Non-Af Amer 70 mL/min >60 [facility] Work Phone: Comment on above: Non- GFR Calc Platelets bldon 09-20-2021 Platelets (Bld) [#/Vol] 161 10*3/uL 150-450 [facility] Work Phone: Serum or plasma calcium kim urement (mass/volume)on 09-20-2021 Calcium [Mass/Vol] 9.4 mg/dL 8.5-10.1 [facility] Work Phone: Serum or plasma creatinine m easurement (mass/volume)on 09-20-2021 Creatinine [Mass/Vol] 0.86 mg/dL 0.55-1.02 [facility] Work Phone: Comment on above: The validity of the calculated GFR & GFRAA in patients over 70 years has not been determined. Clinical correlation is essential. Serum or plasma urea nitroge n measurement (mass/volume)on 09-20-2021 Urea nitrogen [Mass/Vol] 12 mg/dL - [facility] Work Phone: Thin prep Papanicolaou smear with manual screeningon 09-20-2021 Thin prep Papanicolaou smear with manual screening 10-18 [facility] Work Phone: OPERATIVE NOon 09-17-2021 OPERATIVE NO HNO ID: [id number] Author: Jennifer Cuevas MD Service: Gynecology Oncology Author Type: Physician Type: Operative Report Filed: 09/23/2021 10:50 AM Note Text: [facility] - Operative Report VIDA NINA : 1950 AGE: 70. SEX: F PATIENT TYPE: I HOSP [facility] [place]: OBN LOCATION: [id number] ATTENDING PHYSICIAN: Jennifer Cuevas M.D. CSN NUMBER: [id number] DATE OF SURGERY/PROCEDURE: 09/07/2021 INCISION/PROCEDURE START TIME: 09:14 a.m. INCISION CLOSE/PROCEDURE END TIME: 12:36 p.m. 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 SURGEON: Jennifer Cuevas M.D. RUBBER STAMP DIE INSPECTOR: investment sales assistant, Dr. Donal Naidu and Dr. Shanon [...] ligaments, which (more content not included)... Normal [facility] Bilirubin Test strip Ql (U)o n 09-10-2021 Bilirubin Ql (U) Negative Negative [facility] Work Phone: Darren 09-10-2021 SHORTY Telephone (ÁNGEL Sprague) ----- VIDA NINA ([id number]) 1950 F Date Time Provider Department 09/10/21 TANIYA BALDERAS During your visit today, we recorded the following information about you: Taniya Balderas APRN.MICHELLE 09/10/2021 8:32 AM Signed Called [facility] left message on nurse line to call [...] to. meds that are susceptible are iv. half-way can recheck urine if still + then would need to get ID involved verbal instructions per Dr julieth Balderas, ALEMITE OPERATOR.SUPERVISOR LABORATORY ANIMAL FACILITY Allergies As of Date: 09/10/2021 Noted Allergy [...] ERYTHEMATOSUS [M32.9] 07/15/2005 MYALGIA AND MYOSITIS NOS [ZGR7957] 07/15/2005 Elevated transaminase level [R74.01] 09/04/2014 Elevated blood sugar [R73.9] 09/04/2014 Mood disorder (HCC) [F39] 09/04/2014 Hard to intubate [T88.4XXA] 09/07/2021 Encounter for postoperative care [Z48.89] 09/07/2021 Endometrial cancer (HCC) [C54.1] 09/08/2021 Encounter Status:Closed by TANIYA BALDERAS on 09/10/21 [facility] Culture, urineon 09-10-2021 Bacteria identified Cx Nom (U) Negative [facility] Work Phone: Ketones Test strip Ql (U)on 09-10-2021 Ketones Ql (U) Negative Negative [facility] Work Phone: Nitrite Test strip Ql (U)on 09-10-2021 Nitrite Ql (U) Negative Negative [facility] Work Phone: Protein Test strip Ql (U)on 09-10-2021 Protein Ql (U) Negative Negative [facility] Work Phone: Urine blood detectionon 04-0 RBC Ql (U) 25 /ul Negative [facility] Work Phone: Urine clarityon 09-10-2021 Clarity (U) Clear Clear [facility] Work Phone: Urine color determinationon 09-10-2021 Color (U) Yellow Yellow [facility] Work Phone: Urine glucose detectionon Glucose Ql (U) Normal mg/dl Normal [facility] Work Phone: Urine leukocyte esterase det ection by dipstickon 09-10-2021 Leukocyte esterase Test strip Ql (U) 25 /ul Negative [facility] Work Phone: Urine pHon 09-10-2021 pH (U) 7.0 [pH] 5.0 - 8.0 [facility] Work Phone: Urine specific gravity measu rementon 09-10-2021 Specific gravity (U) [Rel density] 1.005 1.002-1.03 0 [facility] Work Phone: Urobilinogen Auto test strip Ql (U)on 09-10-2021 Urobilinogen Ql (U) Normal mg/dl Normal [facility] Work Phone: ANES POSTPROC EVALon 022 ANES POSTPROC EVAL HNO ID: [id number] Author: Darrion Payne MD Service: Anesthesiology Author Type: Physician Type: Anesthesia Postprocedure Evaluation Filed: 09/09/2021 12:30 PM Note Text: POST ANESTHESIA EVALUATION NOTE : 1950 Procedure Summary Date: 09/07/21 Room / Location: [place] Anesthesia Start: 812 Anesthesia Stop: 1242 [...] SIGNATURE: Darrion Payne MD PATIENT NAME: Vida Campbellt DATE: September 09, 2021 TIME: 12:30 PM CSN: [id number] [facility] 09-09-2021 [facility] Telephone (ÁNGEL Sprague) ----- PAULVIDA ([id number]) 1950 F Date Time Provider Department 09/09/21 JENNIFER CUEVAS During your visit today, we recorded the following information about you: Summer Turcios RN 09/09/2021 2:15 PM Signed Franklin, nursing staff development coordinator at [facility] called stated, "one of patient's lap [...] confidential e-mail) Attempted to call Franklin at [facility] to review above message, no answer. Left message on voicemail to return call. JESUS Shah RN 09/09/2021 2:53 PM Signed Franklin from [facility] returned call to this RN. Reviewed [...] ERYTHEMATOSUS [M32.9] 07/15/2005 MYALGIA AND MYOSITIS NOS [TUL1006] 07/15/2005 Elevated transaminase level [R74.01] 09/04/2014 Elevated blood sugar [R73.9] 09/04/2014 Mood disorder (HCC) [F39] 09/04/2014 Hard to intubate [T88.4XXA] 09/07/2021 Encounter for postoperative care [Z48.89] 09/07/2021 Endometrial cancer (HCC) [C54.1] 09/08/2021 Encounter Status:Closed by SUMMER TURCIOS on 09/09/21 [facility] CASE MANAGEMon 09-08-2021 CASE MANAGEM HNO ID: [id number] Author: Rosmery Mclaughlin RN Service: ? Author [...] Rafael Resendiz is aware of DC and pickers material handlers time. RN to call report. TRANSPORTATION ARRANGEMENTS: Transportation Arrangements: ([facility]) ADDITIONAL CONTACT RESOURCES: n/a DC orders completed. Patient is discharging back to [facility]. The facility has arranged for [facility] transport to pick her up at 1pm. RN is aware. Met with patient at bedside to notify of DC and transport time. SIGNATURE: Rosmery Mclaughlin RN PATIENT NAME: Vida Nina DATE: September 08, 2021 TIME: 12:28 PM PAGER/CONTACT #: [phone] [facility] MGT IN [facility] HNO ID: [id number] Author: Rosmery Mclaughlin RN Service: ? Author Type: Registered Nurse Type: Care Mgt Initial Assessment Filed: 09/08/2021 10:24 AM Note Text: CARE MANAGEMENT: ASSESSMENT AND DISCHARGE PLAN SERVICE DATE: September 08, 2021 SERVICE TIME: 10:22 AM PRIMARY CARE PHYSICIAN: No primary care provider on file. 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 Financial Resources: Disabled Primary Contact: Extended Emergency [...] plan for meeting these needs: return to [place] Patient's perception of need for this admission: surgery Are you interested in bedside delivery of your medications? No Is Patient Psychosocially Complex?: No ASSESSMENT AND PLAN: Medical Needs: Medical Needs: Two or more chronic diseases Psychosocial Needs: Psychosocial Needs: None FREEDOM OF CHOICE EXPLAINED: [place] of Choice Given: No Reason Not Given: Patient refused (patient prefers to return to [facility]) POTENTIAL TRANSITION PLANS Home Chart reviewed and met with patient. She is from [facility]. 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 Plan is to return to [place]. Spoke with Zari at [facility]. They will send [employer] transport to pickers material handlers patient at 1pm. Will updated patient and RN. SIGNATURE: Rosmery Mclaughlin RN PATIENT NAME: Vida Nina DATE: September 08, 2021 TIME: 10:22 AM PAGER/CONTACT #: [phone] [facility] 09-08-2021 [facility] HNO ID: [id number] Author: Sam Naidu DO Service: Gynecology Oncology [...] Time Provider Department Center 09/22/2021 2:30 PM [id number]-NWSYMLFRJENNIFER CUEVAS POB DISCHARGE MEDICATIONS Current Discharge Medication [...] September 08, 2021 TIME: 7:27 AM PAGER: [phone] [facility] ANES PRE-OPon 09-07-2021 ANES PRE-OP HNO ID: [id number] Author: Darrion Payne MD Service: Anesthesiology Author [...] (N/A Abdomen) LAPAROTOMY PELVIC (N/A Pelvis) Location: [place] [address] [place] [address] OR Surgeons: Jennifer Cuevas MD Estimated body [...] (97.2 ?F) 09/07/21 0658 SpO2 97 % 09/07/2158 Facility-Administered Medications as of 09/07/2021 Medication Dose [...] September 07, 2021 TIME: 8:57 AM CSN: [id number] [facility] BRIEF OP NOTon 09-07-2021 BRIEF OP NOT HNO ID: [id number] Author: Sam Naidu DO Service: Gynecology Oncology Author Type: Resident Type: Brief Op Note Filed: 09/07/2021 1:06 PM Note Text: BRIEF OPERATIVE / PROCEDURE NOTE LOG ID: [id number] SURGERY/PROCEDURE DATE: 09/07/2021 INCISION/PROCEDURE START TIME: 9:14 AM INCISION CLOSE/PROCEDURE END TIME: 12:36 PM SURGEON(S)/PROCEDURALIST( S) AND RUBBER STAMP DIE INSPECTOR(S): Surgeon(s) and Role: * Jennifer Cuevas MD [...] DATE: September 07, 2021 TIME: 1:01 PM [facility] Bacteria Ur Culton 2 Bacteria identified Cx [...] F Trimeth sulfameth R >2 F Abnormal [facility] Comment on above: Performed By: #### 6 30-4 ####[facility]ORY[facility]IA [id number] [place] [id number] [place] Basic metabolic 2000 panelon 09-07-2021 Anion gap [Moles/Vol] 13 mmol/L Normal 9-18 [facility] Comment on above: Order Comment: Speci men Type: BLOOD SPECIMEN Ordering Facility: [facility] Address: [facility] [place] [address] Performed By: #### 2 4321-2 #### [facility] CLIA [id number] [address] [place] Calcium [Mass/Vol] 9.2 mg/dL Normal 8.5-10.2 [facility] Comment on above: Order Comment: Speci men Type: BLOOD SPECIMEN Ordering Facility: [facility] Address: [address] [place] [address] Performed By: #### 2 4321-2 #### [facility] CLIA [id number] 1 [place] [address] [place] Chloride [Moles/Vol] 97 mmol/L Normal 97-105 [facility] Comment on above: Order Comment: Speci men Type: BLOOD SPECIMEN Ordering Facility: [facility] Address: [address] [place] [address] Performed By: #### 2 4321-2 #### [facility] CLIA [id number] 1 [place] [address] [place] CO2 [Moles/Vol] 22 mmol/L Normal 22-30 [facility] Comment on above: Order Comment: Speci men Type: BLOOD SPECIMEN Ordering Facility: [facility] Address: [address] [place] [address] Performed By: #### 2 4321-2 #### [facility] CLIA [id number] 1 [place] [address] [place] Creatinine [Mass/Vol] 0.70 mg/dL Normal 0.58-0.96 [facility] Comment on above: Order Comment: Speci men Type: BLOOD SPECIMEN Ordering Facility: [facility] Address: [address] [place] [address] Performed By: #### 2 4321-2 #### [facility] CLIA [id number] 1 [place] [address] [place] ESTIMATED GLOMERULAR FILTRATION RATE 94 mL/min/1.73m??? Normal >=60 [facility] Comment on above: Order Comment: Bobbi alford Type: BLOOD SPECIMEN Ordering Facility: [facility] Address: [address] [place] [address] Result Comment: Laura mated Glomerular Filtration Rate [...] GFR. Performed By: #### 2 4321-2 #### [facility] CLIA [id number] 1 [place] [address] [place] Glucose [Mass/Vol] 303 mg/dL High 74-99 [facility] Comment on above: Order Comment: Bobbi alford Type: BLOOD SPECIMEN Ordering Facility: [facility] Address: [address] [place] [address] Result Comment: The [place] Diabetes [employer] (ADA) provides guidance for cutoff [...] Standards of Medical Care in Diabetes 2016, [place] [employer]. Diabetes Care. 2016.39(Suppl 1). Performed By: #### 2 4321-2 #### [facility] CLIA [id number] 1 [place] [address] [place] Potassium [Moles/Vol] 4.9 mmol/L Normal 3.7-5.1 [facility] Comment on above: Order Comment: Bobbi alford Type: BLOOD SPECIMEN Ordering Facility: [facility] Address: [address] [place] [address] Performed By: #### 2 4321-2 #### [facility] CLIA [id number] [address] STATES [facility] Sodium [Moles/Vol] 132 mmol/L Low 136-144 [facility] Comment on above: Order Comment: Speci men Type: BLOOD SPECIMEN Ordering Facility: [facility] Address: [address] [place] [address] Performed By: #### 2 4321-2 #### [facility] CLIA [id number] [address] STATES OF [facility] Urea nitrogen [Mass/Vol] 13 mg/dL Normal 7-21 [facility] Comment on above: Order Comment: Speci men Type: BLOOD SPECIMEN Ordering Facility: [facility] Address: [address] [place] [address] Performed By: #### 2 4321-2 #### [facility] CLIA [id number] [address] STATES OF [facility] CBC panel Auto (Bld)on 09-07 Erythrocyte distribution width (RBC) [Ratio] 14.2 % Normal 11.5-15.0 [facility] Comment on above: Order Comment: Speci men Type: BLOOD SPECIMEN Ordering Facility: [facility] Address: [address] [place] [address] Performed By: #### 5 8410-2 #### [facility] CLIA [id number] [address] OF [facility] Hematocrit (Bld) [Volume fraction] 44.0 % Normal 36.0-46.0 [facility] Comment on above: Order Comment: Speci men Type: BLOOD SPECIMEN Ordering Facility: [facility] Address: [address] [place] [address] Performed By: #### 5 8410-2 #### [facility] CLIA [id number] [address] [place] Hemoglobin (Bld) [Mass/Vol] 14.2 g/dL Normal 11.5-15.5 [facility] Comment on above: Order Comment: Speci men Type: BLOOD SPECIMEN Ordering Facility: [facility] Address: [address] [place] [address] Performed By: #### 5 8410-2 #### [facility] CLIA [id number] [address] MCH (RBC) [Entitic mass] 28.9 pg Normal 26.0-34.0 [facility] Comment on above: Order Comment: Speci men Type: BLOOD SPECIMEN Ordering Facility: [facility] Address: [address] [place] [address] Performed By: #### 5 8410-2 #### [facility] CLIA [id number] [address] MCHC (RBC) [Mass/Vol] 32.3 g/dL Normal 30.5-36.0 [facility] Comment on above: Order Comment: Speci men Type: BLOOD SPECIMEN Ordering Facility: [facility] Address: [address] [place] [address] Performed By: #### 5 8410-2 #### [facility] CLIA [id number] [address] MCV (RBC) [Entitic vol] 89.6 fL Normal 80.0-100.0 [facility] Comment on above: Order Comment: Speci men Type: BLOOD SPECIMEN Ordering Facility: [facility] Address: [address] [place] [address] Performed By: #### 5 8410-2 #### [facility] CLIA [id number] [address] Nucleated RBC (Bld) [#/Vol] 10*3/uL Normal <0.01 [facility] Comment on above: Order Comment: Speci men Type: BLOOD SPECIMEN Ordering Facility: [facility] Address: [address] [place] [address] Performed By: #### 5 8410-2 #### [facility] CLIA [id number] [address] Platelet mean volume (Bld) [Entitic vol] 10.8 fL Normal 9.0-12.7 [facility] Comment on above: Order Comment: Speci men Type: BLOOD SPECIMEN Ordering Facility: [facility] Address: [address] [place] [address] Performed By: #### 5 8410-2 #### [facility] CLIA [id number] [address] [place] Platelets (Bld) [#/Vol] 153 10*3/uL Normal 150-400 [facility] Comment on above: Order Comment: Speci men Type: BLOOD SPECIMEN Ordering Facility: [facility] Address: [address] [place] [address] Performed By: #### 5 8410-2 #### [facility] CLIA [id number] [address] RBC (Bld) [#/Vol] 4.91 10*6/uL Normal 3.90-5.20 [facility] Comment on above: Order Comment: Speci men Type: BLOOD SPECIMEN Ordering Facility: [facility] Address: [address] [place] [address] Performed By: #### 5 8410-2 #### [facility] CLIA [id number] [address] WBC (Bld) [#/Vol] 8.23 10*3/uL Normal 3.70-11.00 [facility] Comment on above: Order Comment: Speci men Type: BLOOD SPECIMEN Ordering Facility: [facility] Address: [address] [place] [address] Performed By: #### 5 8410-2 #### [facility] CLIA [id number] [address] CONSULT PROGon 09-07-2021 CONSULT PROG HNO ID: [id number] Author: Niki Crabtree RP Service: Pharmacy Author Type: Pharmacist Type: Consult [...] any questions or concerns. SIGNATURE: Niki Crabtree [facility] DATE/TIME: 09/07/2021 4:32 PM [facility] NURSING PROGon 09-07-2021 NURSING PROG HNO ID: [id number] Author: Lydia Oliver RN Service: Nursing Author Type: Registered Nurse Type: Nursing Progress Note Filed: 09/07/2021 3:19 PM Note Text: Spoke with Bernadine at [facility] to let her know patient was spending the night, as she said there is no nursing staff after 2300 Normal [facility] NURSING PROG HNO ID: [id number] Author: Lydia Oliver RN Service: Nursing Author [...] continue home meds on the floor. Normal [facility] SARS-CoV-2 RNA Resp Ql SALLY+p robeon 09-07-2021 SARS-CoV-2 (COVID-19) RNA SALLY+probe Ql (Resp) COVID 19 RESULT: SARS-CoV-2 (Agent of COVID-19) Not Detected by RT-PCR or equivalent method. This test has been authorized by FDA under an Emergency Use Authorization (EUA). Normal [facility] Comment on above: Performed By: #### 9 4500-6 ####[facility] [id number] [address] SURGICAL PATHOLOGYon 022 CASE REPORT Normal [facility] Comment on above: Order Comment: Speci men Type: TISSUE SPECIMEN Ordering Facility: [facility] Address: [address] [place], [place] [id number] Result Comment: Surg ical Pathology Report Case: [id number] Authorizing Provider: Jennifer Cuevas MD Collected: 09/07/2021 11:04 AM Ordering Location: [place] [facility] Received: 09/07/2021 11:12 AM Pathologist: Oseas May MD Intraop: Derick Alvarez MD Specimen: UTERUS, CERVIX, BILATERAL FALLOPIAN TUBES AND BILATERAL OVARIES Performed By: #### S #### [facility] CLIA [id number] [address] DIAGNOSIS COMMENT Normal [facility] Comment on above: Order Comment: Speci men Type: TISSUE SPECIMEN Ordering Facility: [facility] Address: [address] [place] [address] Result Comment: Immu nohistochemical staining performed on [...] A11 and A16 were reviewed at the [facility] gynecologic pathology consensus conference via telepathology on 09/09/[address] Lupe Younger and Andra Franco agree with the diagnosis of acute salpingitis. Laboratory Developed Test (LDT) Disclaimer: Performance characteristics of immunohistochemical, immunofluorescent and chromogenic in-situ hybridization tests have been determined by the performing laboratory within [facility]???s [facility] [place] ([facility], [facility], [facility] or [facility]) in a manner consistent with CLIA requirements. One or more of these tests have not been cleared or approved by the FDA. [facility] is regulated under CLIA as qualified to perform high-complexity testing. These tests are used for clinical purposes. They should not be regarded as investigational or for research. Positive and negative controls stain appropriately. Performed By: #### S #### [facility] CLIA [id number] [address] FINAL DIAGNOSIS Normal [facility] Comment on above: Order Comment: Speci men Type: TISSUE SPECIMEN Ordering Facility: [facility] Address: [address] [place] [address] Result Comment: A. U terus, cervix, bilateral [...] -Unremarkable ovaries. Performed By: #### S #### [facility] CLIA [id number] [address] FINAL PERFORMING LAB Normal [facility] Comment on above: Order Comment: Speci men Type: TISSUE SPECIMEN Ordering Facility: [facility] Address: [address] [place] [id number] Result Comment: Diag nostic interpretation performed at [facility], [address] [place] [address] CLIA# [id number] Physician'S Aide: Alok Jonas M.D. Performed By: #### S #### [facility] CLIA [id number] [address] [place] [address] [place] GROSS DESCRIPTION Normal [facility] Comment on above: Order Comment: Speci men Type: TISSUE SPECIMEN Ordering Facility: [facility] Address: [address] [place] [address] Result Comment: A. U TERUS, CERVIX, BILATERAL [...] fibrous ovarian parenchyma with no lesions identified. Awning Finisher sections are submitted as follows: A1-anterior cervix [...] A 17-right ovary Gross examination performed at [facility], [address] [place] [address] CLIA#[id number] OLS September 08, 2021 10:33 AM Performed By: #### S #### [facility] CLIA [id number] [address] [place] [address] [place] [facility] INTRAOPERATIVE DIAGNOSIS Normal [facility] Comment on above: Order Comment: Speci men Type: TISSUE SPECIMEN Ordering Facility: [facility] Address: [address] [place] [address] Result Comment: A. U TERUS, CERVIX, BILATERAL FALLOPIAN TUBES AND BILATERAL OVARIES. Gross diagnosis: Uterus, cervix, bilateral fallopian tubes, bilateral ovaries- Endometrial tumor grossly invading greater than 50% into the uterine wall (AC) Performed By: #### S #### [facility] CLIA [id number] [address] [place] [address] [place] SYNOPTIC REPORT ENDOMETRIUM Normal [facility] Comment on above: Order Comment: Speci men Type: TISSUE SPECIMEN Ordering Facility: [facility] Address: [address] [place] [address] Result Comment: ENDO METRIUM, HYSTERECTOMY - All [...] Stage: IB Performed By: #### S #### [facility] CLIA [id number] [address] CBC panel Auto (Bld)on 09-01 Erythrocyte distribution width (RBC) [Ratio] 14.5 % Normal 11.5-15.0 [facility] Comment on above: Order Comment: Speci men Type: BLOOD SPECIMEN Ordering Facility: [facility] Address: [address] [place] [address] Performed By: #### 5 8410-2 #### [facility] CLIA [id number] [address] OF [facility] Hematocrit (Bld) [Volume fraction] 41.0 % Normal 36.0-46.0 [facility] Comment on above: Order Comment: Speci men Type: BLOOD SPECIMEN Ordering Facility: [facility] Address: [address] [place] [address] Performed By: #### 5 8410-2 #### [facility] CLIA [id number] [address] Hemoglobin (Bld) [Mass/Vol] 13.3 g/dL Normal 11.5-15.5 [facility] Comment on above: Order Comment: Speci men Type: BLOOD SPECIMEN Ordering Facility: [facility] Address: [address] [place] [address] Performed By: #### 5 8410-2 #### [facility] CLIA [id number] [address] MCH (RBC) [Entitic mass] 28.8 pg Normal 26.0-34.0 [facility] Comment on above: Order Comment: Speci men Type: BLOOD SPECIMEN Ordering Facility: [facility] Address: [address] [place] [address] Performed By: #### 5 8410-2 #### [facility] CLIA [id number] [address] MCHC (RBC) [Mass/Vol] 32.4 g/dL Normal 30.5-36.0 [facility] Comment on above: Order Comment: Speci men Type: BLOOD SPECIMEN Ordering Facility: [facility] Address: [address] [place] [address] Performed By: #### 5 8410-2 #### [facility] CLIA [id number] [address] MCV (RBC) [Entitic vol] 88.7 fL Normal 80.0-100.0 [facility] Comment on above: Order Comment: Speci men Type: BLOOD SPECIMEN Ordering Facility: [facility] Address: [address] [place] [address] Performed By: #### 5 8410-2 #### [facility] CLIA [id number] [address] [place] Nucleated RBC (Bld) [#/Vol] 10*3/uL Normal <0.01 [facility] Comment on above: Order Comment: Speci men Type: BLOOD SPECIMEN Ordering Facility: [facility] Address: [address] [place] [address] Performed By: #### 5 8410-2 #### [facility] CLIA [id number] [address] [place] Platelet mean volume (Bld) [Entitic vol] 10.5 fL Normal 9.0-12.7 [facility] Comment on above: Order Comment: Speci men Type: BLOOD SPECIMEN Ordering Facility: [facility] Address: [address] [place] [address] Performed By: #### 5 8410-2 #### [facility] CLIA [id number] [address] Platelets (Bld) [#/Vol] 167 10*3/uL Normal 150-400 [facility] Comment on above: Order Comment: Speci men Type: BLOOD SPECIMEN Ordering Facility: [facility] Address: [address] [place] [address] Performed By: #### 5 8410-2 #### [facility] CLIA [id number] [address] [place] RBC (Bld) [#/Vol] 4.62 10*6/uL Normal 3.90-5.20 [facility] Comment on above: Order Comment: Speci men Type: BLOOD SPECIMEN Ordering Facility: [facility] Address: [address] [place] [address] Performed By: #### 5 8410-2 #### [facility] CLIA [id number] [address] [place] WBC (Bld) [#/Vol] 6.29 10*3/uL Normal 3.70-11.00 [facility] Comment on above: Order Comment: Speci men Type: BLOOD SPECIMEN Ordering Facility: [facility] Address: [address] [place] [address] Performed By: #### 5 8410-2 #### [facility] CLIA [id number] [address] [place] BLOOD TYPEon 022 ABO O Normal [facility] Comment on above: Order Comment: Speci men Type: BLOOD SPECIMEN Ordering Facility: [facility] Address: [address] [place] [address] Performed By: #### C ONABO #### [facility] CLIA [id number] [address] Rh Nom (Bld) Positive Normal [facility] Comment on above: Order Comment: Speci men Type: BLOOD SPECIMEN Ordering Facility: [facility] Address: [address] [place] [address] Performed By: #### C ONABO #### [facility] CLIA [id number] [address] HISTORY PHYSICALon HISTORY PHYSICAL HNO ID: [id number] Author: Naila Barrientos APRN.[employer] [facility] Service: ? Author Type: Nurse Practitioner Type: HANDP Filed: 09/01/2021 3:19 PM Note Text: HISTORY AND PHYSICAL EXAMINATION SERVICE DATE: 09/01/2021 SERVICE TIME: 3:07 PM PRIMARY CARE PHYSICIAN: No primary care provider on file. REASON FOR VISIT: Vida Nnia is a 70 year old female who [...] with Dr. Cuevas. Surgery will be at [facility] Scheduled as an TBA Have you been in contact with someone with known coronavirus/Covid 19? no Have you had surgery or pre testing at [facility] in the past 3 years? [...] Negative for: AICD/PPM, chest pain, CHF, recent SD and open heart surgery. GI: Positive for: abdominal pain Negative for: nausea and vomiting. : No history of dysuria, frequency or incontinence, stones or chronic kidney disease. No difficulty urinating, nocturia > 1 time per night or hematuria. TEST BORE HELPER: S/p menopause Endocrine: Positive for: diabetes mellitus. [...] Yes de (more content not included)... Normal [facility] TYPE AND SCREEN,30 DAYon ABO O Normal [facility] Comment on above: Order Comment: Speci men Type: BLOOD SPECIMEN Ordering Facility: [facility] Address: [address] [place], [place] [id number] Performed By: #### T SCR30 #### [facility] CLIA [id number] [address] OF [facility] HISTORICAL AB SCR STATUS Negative Normal [facility] Comment on above: Order Comment: Speci men Type: BLOOD SPECIMEN Ordering Facility: [facility] Address: [address] [place], [place] [address] Performed By: #### T SCR30 #### [facility] CLIA [id number] [address] [place] Rh Nom (Bld) Positive Normal [facility] Comment on above: Order Comment: Speci men Type: BLOOD SPECIMEN Ordering Facility: [facility] Address: [address] [place] [address] Performed By: #### T SCR30 #### [facility] CLIA [id number] [address] OF [facility] CNOVSPon 08-21-2021 CNOVSP Visit (SP) Office (AGGYNONPOB) ----- PAULVIDA Breann ([id number]) 1950 F Date Time Provider Department 08/21/21 1:30 PM JENNIFER CUEVAS During your visit today, we recorded the following information about you: Temperature Pulse Blood pressure Weight 97.8 degrees 113/minute 144/72 130 kg Height 1.651 m Jennifer Cuevas MD 08/26/2021 1:21 PM Signed Gynecologic Oncology [facility] Consult Date of service: 08/21/2021 PCP: [...] many years since she has seen a ladies underwear operator, maybe > 10 years. Reports normal [...] SAB0 IAB0 Ectopic0 Multiple0 Live Births0 ? Washer Operator History ? 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 Age at Menarche: ? Age at First : ? Age at Menopause: ? Washer Operator History Comments: ? Sexual Activity: Not [...] as needed. (more content not included)... Normal [facility] Darren 08-07-2021 MICHELLE Telephone (ÁNGEL Sprague) ----- VIDA NINA ([id number]) 1950 F Date Time Provider Department 08/07/21 JENNIFER CUEVAS During your visit today, we recorded the following information about you: Jeffrey Ferris 08/07/2021 1:26 PM Signed Called gilberto the nurse at [facility] where the patient is living [...] ERYTHEMATOSUS [M32.9] 07/15/2005 MYALGIA AND MYOSITIS NOS [QCQ9716] 07/15/2005 Elevated transaminase level [R74.01] 09/04/2014 Elevated blood sugar [R73.9] 09/04/2014 Mood disorder (HCC) [F39] 09/04/2014 Encounter Status:Closed by JEFFREY FERRIS on 08/07/21 [facility] Darren 08-05-2021 SHORTY Telephone (OBGYWM) ----- VIDA NINA ([id number]) 1950 F Date Time Provider Department 08/05/21 KRUNAL ERAZO During your visit today, we recorded the following information about you: Krunal Erazo MD 08/05/2021 8:30 AM Signed Called listed numbers under home phone, and the numbers are not working. Called number listed for patient's case manager specialist regarding results, but it was stated that patient does not have a case manager specialist currently. I was given the number [phone] to call, which is [facility] where patient resides. Called this number and left a VM asking them to call back regarding patient results. I had offered the patient a follow up visit this week to review results, but she did prefer a phone call. Pathology shows endometrioid adenocarcinoma. I will place a referral to cosmetics presser oncology. Recommend that she see Dr. Jennifer Cuevas in [place] as that would be the closest for her. Krunal Erazo MD 08/05/2021 10:06 AM Signed Discussed results with a nurse Gilberto over the phone and plan of care. She states patient saw an oncologist as well at [facility] and is scheduled for a CTAP. She will have the patient call our office back today for me to discuss results with her as well. Krunal Erazo MD 08/05/2021 10:19 AM Signed Discussed results with the patient and she understands the biopsy shows an endometrial cancer, and that I placed a referral to cosmetics presser oncology for a consultation. Please assist in scheduling this patient. Andra Jesus RN 08/05/2021 11:33 AM Signed Scheduled patient with Dr. Cuevas this Tuesday, 08/07 at 1:00 PM. Spoke with the nurse, Gilberto. Patient's CT scan is scheduled for Tuesday. Phone number given to change appointment since transportation needs arranged. Notified Gilberto that he is in [place] on Tuesdays and every other Tuesday. 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] Order(s):CONSULT TO GYNECOLOGIC/ONCOLOGY [[id number]] Order #: [id number]: 1 FUTURE Prescriptions as of 08/05/2021 - [...] ERYTHEMATOSUS [M32.9] 07/15/2005 MYALGIA AND MYOSITIS NOS [[id number]] 07/15/2005 Elevated transaminase level [R74.01] 09/04/2014 Elevated blood sugar [R73.9] 09/04/2014 Mood disorder (HCC) [F39] 09/04/2014 Encounter Status:Closed by AUDRA MATUTE RN on 08/05/21 [facility] No Panel Informationon 07-30 CA 125 Antigen 85.5 U/mL 0.0-38.1 [facility] Work Phone: Comment on above: [employer] El ectrochemiluminescence Immunoassay(ECLIA)Values obtained with different assay methods or kits cannotbe used interchangeably. 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 Normal [facility] SURGICAL PATHOLOGYon 022 SURGICAL PATHOLOGY ADDENDUM PRESENT Specimen originated from [facility] Specimen #: [id number] Submitting Physician: KRUNAL ERAZO, FINAL DIAGNOSIS 1. Cervix at 3 o'clock, [...] in-situ hybridization tests have [facility] [place] ([facility]) in a manner consistent with CLIA requirements. One or more of these tests have not been cleared or approved by the FDA. [facility] is regulated under CLIA as qualified [...] completed on all uterine/endometrial carcinomas at the [facility]. IHC stains for MMR proteins were performed [...] more information or questions, please call the [facility] at . Andra Webb (more content not included)... Normal [facility] CNPElva 07-27-2021 CNPN Telephone (OBGYWM) ----- PAULVIDA Dennis ([id number]) 1950 F CPA Date Time Provider Department 07/27/21 KRUNAL ERAZO During your visit today, we recorded the following information about you: Andra Jesus RN 07/27/2021 8:14 AM Signed JONATHAN states that patient was seen at [facility] ER yesterday for vaginal bleeding and possible pelvic mass. Called [facility] ER and requested records and imaging [...] patient is minimally ambulatory and coming from [facility]. Since she is a new patient who is minimally ambulatory, and likely needs an EMB and cervical biopsies, would prefer to have 60 min appointment to get everything completed in one day as well as child care counselor her. Can offer her the 2.20 [...] ERYTHEMATOSUS [M32.9] 07/15/2005 MYALGIA AND MYOSITIS NOS [[id number]] 07/15/2005 Elevated transaminase level [R74.01] 09/04/2014 Elevated blood sugar [R73.9] 09/04/2014 Mood disorder (HCC) [F39] 09/04/2014 Encounter Status:Closed by ELISABETH GREEN LPN on 07/27/21 Normal [facility] Absolute lymphocyte counton 07-26-2021 Lymphocytes Auto (Unsp spec) [#/Vol] 1.24 10*3/uL 0.83-4.51 [facility] Work Phone: Basophil percentageon 2021 Basophils/100 WBC (Bld) 0.6 % 0-1 [facility] Work Phone: Chloride [Moles/Vol] 105 mmol/L 98-107 [facility] Work Phone: Eosinophils/100 WBC (Bld) 3.9 % 0-5 [facility] Work Phone: Glucose [Mass/Vol] 185 mg/dL 74-106 [facility] Work Phone: Comment on above: Fasting Glucose resu lt greater than or equal to 126 mg/dL suggests DIABETES MELLITUS per A.D.A. criteria. Neutrophils (Bld) [#/Vol] 3.2 10*3/uL 2.0-7.7 [facility] Work Phone: Neutrophils/100 WBC (Bld) 62.1 % 47-70 [facility] Work Phone: Potassium [Moles/Vol] 4.4 mmol/L 3.5-5.1 [facility] Work Phone: Sodium [Moles/Vol] 135 mmol/L 136-145 [facility] Work Phone: WBC (Bld) [#/Vol] 5.1 10*3/uL 4.4-11.0 [facility] Work Phone: Blood erythrocytes count (nu mber/volume)on 07-26-2021 RBC (Bld) [#/Vol] 4.66 10*6/uL 4.2-5.4 [facility] Work Phone: Blood hemoglobin measurement (mass/volume)on 07-26-2021 Hemoglobin (Bld) [Mass/Vol] 13.8 g/dL 12.0-15.0 [facility] Work Phone: Blood lymphocytes/100 leukoc yteson 07-26-2021 Lymphocytes/100 WBC (Bld) 24.5 % 19-41 [facility] Work Phone: Blood monocytes/100 leukocyt eson 07-26-2021 Monocytes/100 WBC (Bld) 8.5 % 0-10 [facility] Work Phone: Blood platelet mean volumeon 07-26-2021 Platelet mean volume (Bld) [Entitic vol] 10.1 fL 6.2-12.0 [facility] Work Phone: Determination of erythrocyte mean corpuscular volume (MCV)on 07-26-2021 MCV (RBC) [Entitic vol] 88.2 fL 81-99 [facility] Work Phone: Hematocrit Auto (Bld) [Volum e fraction]on 07-26-2021 Hematocrit (Bld) [Volume fraction] 41.1 % 37-47 [facility] Work Phone: Laboratory - Chemistry and C hemistry - challengeon 07-26-2021 CO2 [Moles/Vol] 24.0 mmol/L 21.0-32.0 [facility] Work Phone: Urea nitrogen/Creatinine [Mass ratio] 17.3 mg/mg 10-20 [facility] Work Phone: Laboratory - Hematology and Cell countson 07-26-2021 Erythrocyte distribution width (RBC) [Entitic vol] 46.8 fL 35.1-43.9 [facility] Work Phone: Erythrocyte distribution width (RBC) [Ratio] 14.6 % 11.6-14.6 [facility] Work Phone: Immature granulocytes/100 WBC (Bld) 0.400 % 0.0-0.9 [facility] Work Phone: Comment on above: IG% - Immature Granu locytes (promyelocytes, myelocytes and metamyelocytes) > 1% indicates that a LEFT SHIFT is Present. MCH (RBC) [Entitic mass] 29.6 pg 27.0-32.0 [facility] Work Phone: Nucleated RBC/100 WBC (Bld) [Ratio] 0 % 0-5 [facility] Work Phone: MCHC Auto (RBC) [Mass/Vol]on 07-26-2021 MCHC (RBC) [Mass/Vol] 33.6 g/dL 32-36 [facility] Work Phone: No Panel Informationon 07-26 Estimated Creatinine Clearance Calc 55.69 ml/min [facility] Work Phone: Estimated GFR (MDRD) Amer 84 mL/min >60 [facility] Work Phone: Comment on above: GFR Calc Estimated GFR (MDRD) Non-Af Amer 69 mL/min >60 [facility] Work Phone: Comment on above: Non- GFR Calc Platelets bldon 07-26-2021 Platelets (Bld) [#/Vol] 151 10*3/uL 150-450 [facility] Work Phone: Serum or plasma calcium kim urement (mass/volume)on 07-26-2021 Calcium [Mass/Vol] 9.2 mg/dL 8.5-10.1 [facility] Work Phone: Serum or plasma creatinine m easurement (mass/volume)on 07-26-2021 Creatinine [Mass/Vol] 0.87 mg/dL 0.55-1.02 [facility] Work Phone: Comment on above: The validity of the calculated GFR & GFRAA in patients over 70 years has not been determined. Clinical correlation is essential. Serum or plasma urea nitroge n measurement (mass/volume)on 07-26-2021 Urea nitrogen [Mass/Vol] 15 mg/dL 7-18 [facility] Work Phone: Thin prep Papanicolaou smear with manual screeningon 07-26-2021 Thin prep Papanicolaou smear with manual screening 6 5-15 [facility] Work Phone: Absolute lymphocyte counton 07-14-2021 Lymphocytes Auto (Unsp spec) [#/Vol] 1.32 10*3/uL 0.83-4.51 [facility] Work Phone: Basophil percentageon 2021 Basophils/100 WBC (Bld) 0.6 % 0-1 [facility] Work Phone: Bilirubin [Mass/Vol] 0.40 mg/dL 0.20-1.00 [facility] Work Phone: Comment on above: For patients on eltr ombopag therapy, use of [place] TBIL is not recommended. Chloride [Moles/Vol] 104 mmol/L 98-107 [facility] Work Phone: Eosinophils/100 WBC (Bld) 3.1 % 0-5 [facility] Work Phone: Glucose [Mass/Vol] 201 mg/dL 74-106 [facility] Work Phone: Comment on above: Glucose result great er than or equal to 200 mg/dLsuggests DIABETES MELLITUS per A.D.A. criteria. Neutrophils (Bld) [#/Vol] 3.0 10*3/uL 2.0-7.7 [facility] Work Phone: Neutrophils/100 WBC (Bld) 59.5 % 47-70 [facility] Work Phone: Potassium [Moles/Vol] 4.2 mmol/L 3.5-5.1 [facility] Work Phone: Protein [Mass/Vol] 7.6 g/dL 6.4-8.2 [facility] Work Phone: Sodium [Moles/Vol] 136 mmol/L 136-145 [facility] Work Phone: WBC (Bld) [#/Vol] 5.1 10*3/uL 4.4-11.0 [facility] Work Phone: Blood erythrocytes count (nu mber/volume)on 07-14-2021 RBC (Bld) [#/Vol] 4.23 10*6/uL 4.2-5.[address] [facility] Work Phone: Blood hemoglobin measurement (mass/volume)on 07-14-2021 Hemoglobin (Bld) [Mass/Vol] 12.9 g/dL 12.0-15.0 [facility] Work Phone: Blood lymphocytes/100 leukoc yteson 07-14-2021 Lymphocytes/100 WBC (Bld) 26.0 % 19-41 [facility] Work Phone: Blood monocytes/100 leukocyt eson 07-14-2021 Monocytes/100 WBC (Bld) 10.4 % 0-10 [facility] Work Phone: Blood platelet mean volumeon 07-14-2021 Platelet mean volume (Bld) [Entitic vol] 10.9 fL 6.2-12.0 [facility] Work Phone: Determination of erythrocyte mean corpuscular volume (MCV)on 07-14-2021 MCV (RBC) [Entitic vol] 88.9 fL 81-99 [facility] Work Phone: Hematocrit Auto (Bld) [Volum e fraction]on 07-14-2021 Hematocrit (Bld) [Volume fraction] 37.6 % 37-47 [facility] Work Phone: Laboratory - Chemistry and C hemistry - challengeon 07-14-2021 ALP [Catalytic activity/Vol] 144 U/L 45-117 [facility] Work Phone: ALT [Catalytic activity/Vol] 28 U/L 13-56 [facility] Work Phone: CO2 [Moles/Vol] 24.0 mmol/L 21.0-32.0 [facility] Work Phone: Globulin (S) [Mass/Vol] 4.7 g/dL 2.2-4.2 [facility] Work Phone: Urea nitrogen/Creatinine [Mass ratio] 18.0 mg/mg 10-20 [facility] Work Phone: Laboratory - Hematology and Cell countson 07-14-2021 Erythrocyte distribution width (RBC) [Entitic vol] 46.7 fL 35.1-43.9 [facility] Work Phone: Erythrocyte distribution width (RBC) [Ratio] 14.5 % 11.6-14.6 [facility] Work Phone: Immature granulocytes/100 WBC (Bld) 0.400 % 0.0-0.9 [facility] Work Phone: Comment on above: IG% - Immature Granu locytes (promyelocytes, myelocytes and metamyelocytes) > 1% indicates that a LEFT SHIFT is Present. MCH (RBC) [Entitic mass] 30.5 pg 27.0-32.0 [facility] Work Phone: Nucleated RBC/100 WBC (Bld) [Ratio] 0 % 0-5 [facility] Work Phone: MCHC Auto (RBC) [Mass/Vol]on 07-14-2021 MCHC (RBC) [Mass/Vol] 34.3 g/dL 32-36 [facility] Work [facility]: No Panel Informationon 07-14 Estimated GFR (MDRD) Amer 95 mL/min >60 [facility] Work Phone: Comment on above: GFR Calc Estimated GFR (MDRD) Non-Af Amer 78 mL/min >60 [facility] Work Phone: Comment on above: Non- GFR Calc Vitamin D 25-Hydroxy 79.0 ng/mL [facility] Work Phone: Comment on above: Vitamin D 25(OH) Sta tus Range Deficiency <20 ng/mL (50nmol/L) Insufficiency 20 - 30 ng/mL (50 - 75 nmol/L) Sufficiency 30 - 100 ng/mL (75 - 250 nmol/L) Toxicity >100 ng/mL (>250 nmol/L) Platelets bldon 07-14-2021 Platelets (Bld) [#/Vol] 170 10*3/uL 150-450 [facility] Work Phone: Serum or plasma albumin kim urement (mass/volume)on 07-14-2021 Albumin [Mass/Vol] 2.9 g/dL 3.2-5.0 [facility] Work Phone: Serum or plasma albumin/glob ulin mass ratioon 07-14-2021 Albumin/Globulin [Mass ratio] 0.6 {ratio} 0.9-2.4 [facility] Work Phone: Serum or plasma calcium kim urement (mass/volume)on 07-14-2021 Calcium [Mass/Vol] 8.7 mg/dL 8.5-10.1 [facility] Work Phone: Serum or plasma creatinine m easurement (mass/volume)on 07-14-2021 Creatinine [Mass/Vol] 0.78 mg/dL 0.55-1.02 [facility] Work Phone: Comment on above: The validity of the calculated GFR & GFRAA in patients over 70 years has not been determined. Clinical correlation is essential. Serum or plasma urea nitroge n measurement (mass/volume)on 07-14-2021 Urea nitrogen [Mass/Vol] 14 mg/dL 7-18 [facility] Work Phone: Thin prep Papanicolaou smear with manual screeningon 07-14-2021 Thin prep Papanicolaou smear with manual screening 26 U/L 15-37 [facility] Work Phone: Thin prep Papanicolaou smear with manual screening 8 5-15 [facility] Work Phone: Absolute lymphocyte counton 07-08-2021 Lymphocytes Auto (Unsp spec) [#/Vol] 1.26 10*3/uL 0.83-4.51 [facility] Work Phone: Basophil percentageon 2021 Basophils/100 WBC (Bld) 0.6 % 0-1 [facility] Work Phone: Bilirubin [Mass/Vol] 0.40 mg/dL 0.20-1.00 [facility] Work Phone: Comment on above: For patients on eltr ombopag therapy, use of [place] TBIL is not recommended. Chloride [Moles/Vol] 104 mmol/L 98-107 [facility] Work Phone: Eosinophils/100 WBC (Bld) 4.5 % 0-5 [facility] Work Phone: Glucose [Mass/Vol] 181 mg/dL 74-106 [facility] Work Phone: Comment on above: Fasting Glucose resu lt greater than or equal to 126 mg/dL suggests DIABETES MELLITUS per A.D.A. criteria. Neutrophils (Bld) [#/Vol] 2.8 10*3/uL 2.0-7.7 [facility] Work Phone: Neutrophils/100 WBC (Bld) 58.0 % 47-70 [facility] Work Phone: Potassium [Moles/Vol] 4.5 mmol/L 3.5-5.1 [facility] Work Phone: Protein [Mass/Vol] 7.5 g/dL 6.4-8.2 [facility] Work Phone: Sodium [Moles/Vol] 136 mmol/L 136-145 [facility] Work Phone: WBC (Bld) [#/Vol] 4.9 10*3/uL 4.4-11.0 [facility] Work Phone: Blood erythrocytes count (nu mber/volume)on 07-08-2021 RBC (Bld) [#/Vol] 4.16 10*6/uL 4.2-5.[address] [facility] [facility] [facility] Work Phone: Blood hemoglobin measurement (mass/volume)on 07-08-2021 Hemoglobin (Bld) [Mass/Vol] 12.2 g/dL 12.0-15.0 [facility] Work Phone: Blood lymphocytes/100 leukoc yteson 07-08-2021 Lymphocytes/100 WBC (Bld) 25.7 % 19-41 [facility] Work Phone: Blood monocytes/100 leukocyt eson 07-08-2021 Monocytes/100 WBC (Bld) 10.8 % 0-10 [facility] Work Phone: Blood platelet mean volumeon 07-08-2021 Platelet mean volume (Bld) [Entitic vol] 11.2 fL 6.2-12.0 [facility] Work Phone: Determination of erythrocyte mean corpuscular volume (MCV)on 07-08-2021 MCV (RBC) [Entitic vol] 89.2 fL 81-99 [facility] Work Phone: Hematocrit Auto (Bld) [Volum e fraction]on 07-08-2021 Hematocrit (Bld) [Volume fraction] 37.1 % 37-47 [facility] Work Phone: Laboratory - Chemistry and C hemistry - challengeon 07-08-2021 ALP [Catalytic activity/Vol] 131 U/L 45-117 [facility] Work Phone: ALT [Catalytic activity/Vol] 32 U/L 13-56 [facility] Work Phone: CO2 [Moles/Vol] 23.0 mmol/L 21.0-32.0 [facility] Work Phone: Globulin (S) [Mass/Vol] 4.6 g/dL 2.2-4.2 [facility] Work Phone: Urea nitrogen/Creatinine [Mass ratio] 18.5 mg/mg 10-20 [facility] Work Phone: Laboratory - Hematology and Cell countson 07-08-2021 Erythrocyte distribution width (RBC) [Entitic vol] 47.6 fL 35.1-43.9 [facility] Work Phone: Erythrocyte distribution width (RBC) [Ratio] 14.6 % 11.6-14.6 [facility] Work Phone: Immature granulocytes/100 WBC (Bld) 0.400 % 0.0-0.9 [facility] Work Phone: Comment on above: IG% - Immature Granu locytes (promyelocytes, myelocytes and metamyelocytes) > 1% indicates that a LEFT SHIFT is Present. MCH (RBC) [Entitic mass] 29.3 pg 27.0-32.0 [facility] Work Phone: Nucleated RBC/100 WBC (Bld) [Ratio] 0 % 0-5 [facility] Work Phone: MCHC Auto (RBC) [Mass/Vol]on 07-08-2021 MCHC (RBC) [Mass/Vol] 32.9 g/dL 32-36 [facility] Work Phone: No Panel Informationon 07-08 Estimated GFR (MDRD) Amer 84 mL/min >60 [facility] Work Phone: Comment on above: GFR Calc Estimated GFR (MDRD) Non-Af Amer 69 mL/min >60 [facility] Work Phone: Comment on above: Non- GFR Calc Vitamin D 25-Hydroxy 88.3 ng/mL [facility] Work Phone: Comment on above: Vitamin D 25(OH) Sta tus Range Deficiency <20 ng/mL (50nmol/L) Insufficiency 20 - 30 ng/mL (50 - 75 nmol/L) Sufficiency 30 - 100 ng/mL (75 - 250 nmol/L) Toxicity >100 ng/mL (>250 nmol/L) Platelets bldon 07-08-2021 Platelets (Bld) [#/Vol] 159 10*3/uL 150-450 [facility] Work Phone: Serum or plasma albumin kim urement (mass/volume)on 07-08-2021 Albumin [Mass/Vol] 2.9 g/dL 3.2-5.0 [facility] Work Phone: Serum or plasma albumin/glob ulin mass ratioon 07-08-2021 Albumin/Globulin [Mass ratio] 0.6 {ratio} 0.9-2.4 [facility] Work Phone: Serum or plasma calcium kim urement (mass/volume)on 07-08-2021 Calcium [Mass/Vol] 9.0 mg/dL 8.5-10.1 [facility] Work Phone: Serum or plasma creatinine m easurement (mass/volume)on 07-08-2021 Creatinine [Mass/Vol] 0.87 mg/dL 0.55-1.02 [facility] Work Phone: Comment on above: The validity of the calculated GFR & GFRAA in patients over 70 years has not been determined. Clinical correlation is essential. Serum or plasma urea nitroge n measurement (mass/volume)on 07-08-2021 Urea nitrogen [Mass/Vol] 16 mg/dL 7-18 [facility] Work Phone: Thin prep Papanicolaou smear with manual screeningon 07-08-2021 Thin prep Papanicolaou smear with manual screening 32 U/L 15-37 [facility] Work Phone: Thin prep Papanicolaou smear with manual screening 9 5-15 [facility] Work Phone: No Panel Informationon 06-12 Vitamin D 25-Hydroxy 101.7 ng/mL [facility] Work Phone: Comment on above: Vitamin [...] Vitamin D test results. Office Visit: Diabetes consu lton 10-26-2016 Adolescent depression screening assessment Adolescent depression screening assessment Invalid Interpretation Code [facility] Work Phone: Documentation of current medications (procedure) Done Invalid Interpretation Code [facility] Work Phone: Fall risk assessment Fall risk assessment Invali d Interpretation Code [facility] Work Phone: Tobacco smoking status NHIS Never Invalid Interpretation Code [facility] Work Phone: Tobacco use [facility] Former smoker Invalid Interpretation Code [facility] Work Phone: Office Visit: Diabetes consu lton 11-05-2015 Breast Mammogram screening Normal Bilateral Invalid Interpretation Code [facility] Work Phone: Colonoscopy (procedure) Colonoscopy (procedure) Invalid Interpretation Code [facility] Work Phone: Culture, urine Bacteria identified Cx Nom (U) Negative [facility] Work Phone: Bacteria identified Cx Nom (U) Escherichia coli [facility] Work Phone: Laboratory - Microbiology an d Antimicrobial susceptibility Bacteria identified Cx Nom (Bld) Negative [facility] Work Phone: No Panel Information SARS-CoV-2 & FLU Antigen (Rapid) [facility] Work Phone: Vital Signs Date Time Vital Sign Value Performing Clinician Facility 10-11-2024 07:00-0400 SaO2% (BldA) [Mass fraction] 95 % Dr. Shayna Malhotra MD Work Phone: [facility] 10-11-2024 06:49-0400 Body temperature 97.6 [degF] Dr. Shayna Malhotra MD Work Phone: [facility] 10-11-2024 06:49-0400 Diastolic blood pressure 76 mm[Hg] Dr. Shayna Malhotra MD Work Phone: [facility] 10-11-2024 06:49-0400 Heart rate 106 /min Dr. Shayna Malhotra MD Work Phone: [facility] 10-11-2024 06:49-0400 Respiratory rate 20 /min Dr. Shayna Malhotra MD Work Phone: [facility] 10-11-2024 06:49-0400 Systolic blood pressure 153 mm[Hg] Dr. Shayna Malhotra MD Work Phone: [facility] 10-11-2024 06:00-0400 Body mass index (BMI) [Ratio] 49.6 kg/m2 Dr. Shayna Malhotra MD Work Phone: [facility] 10-11-2024 06:00-0400 Body weight 135.[address] Shayna Malhotra MD Work Phone: [facility] 10-10-2024 14:58-0400 Body height 165.[address] Shayna Malhotra MD Work Phone: [facility] 10-09-2024 20:55-0400 Diastolic blood pressure 57 mm[Hg] Dr. Shayna Malhotra MD Work Phone: [facility] 10-09-2024 20:55-0400 Heart rate 102 /min Dr. Shayna Malhotra MD Work Phone: [facility] 10-09-2024 20:55-0400 Respiratory rate 20 /min Dr. Shayna Malhotra MD Work Phone: [facility] 10-09-2024 20:55-0400 SaO2% (BldA) [Mass fraction] 98 % Dr. Shayna Malhotra MD Work Phone: [facility] 10-09-2024 20:55-0400 Systolic blood pressure 121 mm[Hg] Dr. Shayna Malhotra MD Work Phone: [facility] 10-09-2024 16:55-0400 Body height 165.[address] Shayna Malhotra MD Work Phone: [facility] 10-09-2024 16:55-0400 Body mass index (BMI) [Ratio] 49.1 kg/m2 Dr. Shayna Malhotra MD Work Phone: [facility] 10-09-2024 16:55-0400 Body temperature 97.8 [degF] Dr. Shayna Malhotra MD Work Phone: [facility] 10-09-2024 16:55-0400 Body weight [address] Shayna Malhotra MD Work Phone: [facility] 07-04-2024 13:06-0500 Body mass index (BMI) [Ratio] 49.9 kg/m2 Dr. Shayna Malhotra MD Work Phone: [facility] 07-04-2024 13:06-0500 Body temperature 97.8 [degF] Dr. Shayna Malhotra MD Work Phone: [facility] 07-04-2024 13:06-0500 Body weight 136.[address] Shayna Malhotra MD Work Phone: [facility] 07-04-2024 13:06-0500 Diastolic blood pressure 80 mm[Hg] Dr. Shayna Malhotra MD Work Phone: [facility] 07-04-2024 13:06-0500 Heart rate 107 /min Dr. Shayna Malhotra MD Work Phone: [facility] 07-04-2024 13:06-0500 Respiratory rate 16 /min Dr. Shayna Malhotra MD Work Phone: [facility] 07-04-2024 13:06-0500 SaO2% (BldA) [Mass fraction] 94 % Dr. Shayna Malhotra MD Work Phone: [facility] 07-04-2024 13:06-0500 Systolic blood pressure 142 mm[Hg] Dr. Shayna Malhotra MD Work Phone: [facility] 01-09-2023 19:06-0400 Body temperature 99.5 [degF] Dr. Shayna Malhotra Work Phone: [facility] 01-09-2023 19:06-0400 Heart rate 115 /min Dr. Shayna Malhotra Work Phone: [facility] 01-09-2023 19:06-0400 Respiratory rate 16 /min Dr. Shayna Malhotra Work Phone: [facility] 01-09-2023 19:06-0400 SaO2% (BldA) [Mass fraction] 95 % Dr. Shayna Malhotra Work Phone: [facility] 01-09-2023 17:53-0400 Diastolic blood pressure 89 mm[Hg] Dr. Shayna Malhotra Work Phone: [facility] 01-09-2023 17:53-0400 Systolic blood pressure 166 mm[Hg] Dr. Shayna Malhotra Work Phone: [facility] 01-09-2023 17:15-0400 Body height 165.[address] Shayna Malhotra Work Phone: [facility] 01-09-2023 17:15-0400 Body mass index (BMI) [Ratio] 51 kg/m2 Dr. Shayna Malhotra Work Phone: [facility] 01-09-2023 17:15-0400 Body weight 139.[address] Shayna Malhotra Work Phone: [facility] 11-24-2022 13:42-0400 Body mass index (BMI) [Ratio] 51.4 kg/m2 Dr. Shayna Malhotra Work Phone: [facility] 11-24-2022 13:42-0400 Body temperature 97.9 [degF] Dr. Shayna Malhotra Work Phone: [facility] 11-24-2022 13:42-0400 Body weight 140.[address] Shayna Malhotra Work Phone: [facility] 11-24-2022 13:42-0400 Diastolic blood pressure 67 mm[Hg] Dr. Shayna Malhotra Work Phone: [facility] 11-24-2022 13:42-0400 Heart rate 112 /min Dr. Shayna Malhotra Work Phone: [facility] 11-24-2022 13:42-0400 Respiratory rate 20 /min Dr. Shayna Malhotra Work Phone: [facility] 11-24-2022 13:42-0400 SaO2% (BldA) [Mass fraction] 92 % Dr. Shayna Malhotra Work Phone: [facility] 11-24-2022 13:42-0400 Systolic blood pressure 125 mm[Hg] Dr. Shayna Malhotra Work Phone: [facility] 05-06-2022 16:07-0500 Body height 165.[address] Shayna Malhotra Work Phone: [facility] 05-06-2022 16:07-0500 Body mass index (BMI) [Ratio] 49.4 kg/m2 Dr. Shayna Malhotra Work Phone: [facility] 05-06-2022 16:07-0500 Body temperature 98.6 [degF] Dr. Shayna Malhotra Work Phone: [facility] 05-06-2022 16:07-0500 Body weight 134.[address] Shayna Malhotra Work Phone: [facility] 05-06-2022 16:07-0500 Diastolic blood pressure 91 mm[Hg] Dr. Shayna Malhotra Work Phone: [facility] 05-06-2022 16:07-0500 Heart rate 118 /min Dr. Shayna Malhotra Work Phone: [facility] 05-06-2022 16:07-0500 Respiratory rate 18 /min Dr. Shayna Malhotra Work Phone: [facility] 05-06-2022 16:07-0500 SaO2% (BldA) [Mass fraction] 96 % Dr. Shayna Malhotra Work Phone: [facility] 05-06-2022 16:07-0500 Systolic blood pressure 167 mm[Hg] Dr. Shayna Malhotra Work Phone: [facility] 11-24-2021 16:06-0400 Heart rate 100 /min Dr. Shayna Malhotra Work Phone: [facility] Work Phone: 11-24-2021 16:04-0400 Body temperature 98.4 [degF] Dr. Shayna Malhotra Work Phone: [facility] Work Phone: 11-24-2021 16:04-0400 Diastolic blood pressure 82 mm[Hg] Dr. Shayna Malhotra Work Phone: [facility] Work Phone: 11-24-2021 16:04-0400 Respiratory rate 17 /min Dr. Shayna Malhotra Work Phone: [facility] Work Phone: 11-24-2021 16:04-0400 SaO2% (BldA) [Mass fraction] 95 % Dr. Shayna Malhotra Work Phone: [facility] Work Phone: 11-24-2021 16:04-0400 Systolic blood pressure 147 mm[Hg] Dr. Shayna Malhotra Work Phone: [facility] Work Phone: 11-24-2021 08:43-0400 Body temperature 98 [degF] Dr. Shayna Malhotra Work Phone: [facility] Work Phone: 11-24-2021 08:43-0400 Diastolic blood pressure 61 mm[Hg] Dr. Shayna Malhotra Work Phone: [facility] Work Phone: 11-24-2021 08:43-0400 Heart rate 94 /min Dr. Shayna Malhotra Work Phone: [facility] Work Phone: 11-24-2021 08:43-0400 Respiratory rate 15 /min Dr. Shayna Malhotra Work Phone: [facility] Work Phone: 11-24-2021 08:43-0400 SaO2% (BldA) [Mass fraction] 95 % Dr. Shayna Malhotra Work Phone: [facility] Work Phone: 11-24-2021 08:43-0400 Systolic blood pressure 113 mm[Hg] Dr. Shayna Malhotra Work Phone: [facility] Work Phone: 11-24-2021 06:00-0400 Body weight 141.[address] Shayna Malhotra Work Phone: [facility] Work Phone: 11-23-2021 09:21-0400 Body height 165.[address] Shayna Malhotra Work Phone: [facility] Work Phone: 11-22-2021 17:49-0400 Body height 165.[address] Shayna Malhotra Work Phone: [facility] Work Phone: 11-22-2021 17:49-0400 Body mass index (BMI) [Ratio] 51.5 kg/m2 Dr. Shayna Malhotra Work Phone: [facility] Work Phone: 11-22-2021 17:49-0400 Body weight 140.[address] Shayna Malhotra Work Phone: [facility] Work Phone: 11-22-2021 17:05-0400 Body temperature 98.9 [degF] Dr. Shayna Malhotra Work Phone: [facility] Work Phone: 11-22-2021 17:05-0400 Diastolic blood pressure 78 mm[Hg] Dr. Shayna Malhotra Work Phone: [facility] Work Phone: 11-22-2021 17:05-0400 Heart rate 120 /min Dr. Shayna Malhotra Work Phone: [facility] Work Phone: 11-22-2021 17:05-0400 Respiratory rate 28 /min Dr. Shayna Malhotra Work Phone: [facility] Work Phone: 11-22-2021 17:05-0400 SaO2% (BldA) [Mass fraction] 96 % Dr. Shayna Malhotra Work Phone: [facility] Work Phone: 11-22-2021 17:05-0400 Systolic blood pressure 119 mm[Hg] Dr. Shayna Malhotra Work Phone: [facility] Work Phone: 10-02-2021 12:46-0400 Body height 165.1 cm Jennifer Cuevas MD Work Phone: [facility] 10-02-2021 12:46-0400 Body temperature 97.39 [degF] Jennifer Cuevas MD Work Phone: [facility] 10-02-2021 12:46-0400 Body weight 136.53 kg Jennifer Cuevas MD Work Phone: [facility] 10-02-2021 12:46-0400 Diastolic blood pressure 85 mm[Hg] Jennifer Cuevas MD Work Phone: [facility] 10-02-2021 12:46-0400 Heart rate 103 /min Jennifer Cuevas MD Work Phone: [facility] 10-02-2021 12:46-0400 Respiratory rate 20 /min Jennifer Cuevas MD Work Phone: [facility] 10-02-2021 12:46-0400 SaO2% (BldA) [Mass fraction] 98 % Jennifer Cuevas MD Work Phone: [facility] 10-02-2021 12:46-0400 Systolic blood pressure 152 mm[Hg] Jennifer Cuevas MD Work Phone: [facility] 09-22-2021 09:30-0400 Body temperature 98.4 [degF] Dr. Shayna Malhotra Work Phone: [facility] Work Phone: 09-22-2021 09:30-0400 Diastolic blood pressure 87 mm[Hg] Dr. Shayna Malhotra Work Phone: [facility] Work Phone: 09-22-2021 09:30-0400 Heart rate 85 /min Dr. Shayna Malhotra Work Phone: [facility] Work Phone: 09-22-2021 09:30-0400 Respiratory rate 17 /min Dr. Shayna Malhotra Work Phone: [facility] Work Phone: 09-22-2021 09:30-0400 SaO2% (BldA) [Mass fraction] 94 % Dr. Shayna Malhotra Work Phone: [facility] Work Phone: 09-22-2021 09:30-0400 Systolic blood pressure 151 mm[Hg] Dr. Shayna Malhotra Work Phone: [facility] Work Phone: 09-20-2021 13:57-0400 Body height 166.[address] Shayna Malhotra Work Phone: [facility] Work Phone: 09-20-2021 13:57-0400 Body weight 137.[address] Shayna Malhotra Work Phone: [facility] Work Phone: 09-20-2021 12:38-0400 Body mass index (BMI) [Ratio] 49.6 kg/m2 Dr. Shayna Malhotra Work Phone: [facility] Work Phone: 09-20-2021 12:06-0400 Body temperature 98 [degF] Dr. Shayna Malhotra Work Phone: [facility] Work Phone: 09-20-2021 12:06-0400 Diastolic blood pressure 71 mm[Hg] Dr. Shayna Malhotra Work Phone: [facility] Work Phone: 09-20-2021 12:06-0400 Heart rate 101 /min Dr. Shayna Malhotra Work Phone: [facility] Work Phone: 09-20-2021 12:06-0400 Respiratory rate 16 /min Dr. Shayna Malhotra Work Phone: [facility] Work Phone: 09-20-2021 12:06-0400 SaO2% (BldA) [Mass fraction] 97 % Dr. Shayna Malhotra Work Phone: [facility] Work Phone: 09-20-2021 12:06-0400 Systolic blood pressure 163 mm[Hg] Dr. Shayna Malhotra Work Phone: [facility] Work Phone: 09-20-2021 07:17-0400 Body height 165.[address] Shayna Malhotra Work Phone: [facility] Work Phone: 09-20-2021 07:17-0400 Body mass index (BMI) [Ratio] 52.5 kg/m2 Dr. Shayna Malhotra Work Phone: [facility] Work Phone: 09-20-2021 07:17-0400 Body weight 143.[address] Shayna Malhotra Work Phone: [facility] Work Phone: 09-01-2021 15:00-0400 Body height 165.1 cm Pst 1 [facility] 09-01-2021 15:00-0400 Body temperature 97.5 [degF] Pst 1 [facility] 09-01-2021 15:00-0400 Body weight 128.82 kg Pst 1 [facility] 09-01-2021 15:00-0400 Diastolic blood pressure 71 mm[Hg] Pst 1 [facility] 09-01-2021 15:00-0400 Heart rate 97 /min Pst 1 [facility] 09-01-2021 15:00-0400 Respiratory rate 18 /min Pst 1 [facility] 09-01-2021 15:00-0400 SaO2% (BldA) [Mass fraction] 97 % Pst 1 [facility] 09-01-2021 15:00-0400 Systolic blood pressure 127 mm[Hg] Pst 1 [facility] 08-11-2021 09:26-0500 Body mass index (BMI) [Ratio] 50.9 kg/m2 Dr. Shayna Malhotra Work Phone: [facility] Work Phone: 08-11-2021 09:26-0500 Body temperature 98.2 [degF] Dr. Shayna Malhotra Work Phone: [facility] Work Phone: 08-11-2021 09:26-0500 Body weight 138.[address] Shayna Malhotra Work Phone: [facility] Work Phone: 08-11-2021 09:26-0500 Diastolic blood pressure 83 mm[Hg] Dr. Shayna Malhotra Work Phone: [facility] Work Phone: 08-11-2021 09:26-0500 Heart rate 114 /min Dr. Shayna Malhotra Work Phone: [facility] Work Phone: 08-11-2021 09:26-0500 Respiratory rate 16 /min Dr. Shayna Malhotra Work Phone: [facility] Work Phone: 08-11-2021 09:26-0500 SaO2% (BldA) [Mass fraction] 96 % Dr. Shayna Malhotra Work Phone: [facility] Work Phone: 08-11-2021 09:26-0500 Systolic blood pressure 151 mm[Hg] Dr. Shayna Malhotra Work Phone: [facility] Work Phone: 08-11-2021 08:26-0500 Body mass index (BMI) [Ratio] 50.9 kg/m2 Dr. Shayna Malhotra Work Phone: [facility] Work Phone: 08-11-2021 08:26-0500 Body temperature 98.2 [degF] Dr. Shayna Malhotra Work Phone: [facility] Work Phone: 08-11-2021 08:26-0500 Body weight 138.[address] Shayna Malhotra Work Phone: [facility] Work Phone: 08-11-2021 08:26-0500 Diastolic blood pressure 83 mm[Hg] Dr. Shayna Malhotra Work Phone: [facility] Work Phone: 08-11-2021 08:26-0500 Heart rate 114 /min Dr. Shayna Malhotra Work Phone: [facility] Work Phone: 08-11-2021 08:26-0500 Respiratory rate 16 /min Dr. Shayna Malhotra Work Phone: [facility] Work Phone: 08-11-2021 08:26-0500 SaO2% (BldA) [Mass fraction] 96 % Dr. Shayna Malhotra Work Phone: [facility] Work Phone: 08-11-2021 08:26-0500 Systolic blood pressure 151 mm[Hg] Dr. Shayna Malhotra Work Phone: [facility] Work Phone: 07-30-2021 14:36-0500 Body mass index (BMI) [Ratio] 50.8 kg/m2 Dr. Shayna Malhotra Work Phone: [facility] Work Phone: 07-30-2021 14:36-0500 Body temperature 98.6 [degF] Dr. Shayna Malhotra Work Phone: [facility] Work Phone: 07-30-2021 14:36-0500 Body weight 138.[address] Shayna Malhorta Work Phone: [facility] Work Phone: 07-30-2021 14:36-0500 Heart rate 106 /min Dr. Shayna Malhotra Work Phone: [facility] Work Phone: 07-30-2021 14:36-0500 Respiratory rate 15 /min Dr. Shyana Malhotra Work Phone: [facility] Work Phone: 07-30-2021 13:36-0500 Body mass index (BMI) [Ratio] 50.8 kg/m2 Dr. Shayna Malhotra Work Phone: [facility] Work Phone: 07-30-2021 13:36-0500 Body temperature 98.6 [degF] Dr. Shayna Malhotra Work Phone: [facility] Work Phone: 07-30-2021 13:36-0500 Body weight 138.[address] Shayna Malhotra Work Phone: [facility] Work Phone: 07-30-2021 13:36-0500 Heart rate 106 /min Dr. Shayna Malhotra Work Phone: [facility] Work Phone: 07-30-2021 13:36-0500 Respiratory rate 15 /min Dr. Shayna Malhotra Work Phone: [facility] Work Phone: 07-26-2021 12:28-0500 Diastolic blood pressure 72 mm[Hg] Dr. Shayna Malhotra Work Phone: [facility] Work Phone: 07-26-2021 12:28-0500 Heart rate 98 /min Dr. Shayna Malhotra Work Phone: [facility] Work Phone: 07-26-2021 12:28-0500 Respiratory rate 23 /min Dr. Shayna Malhotra Work Phone: [facility] Work Phone: 07-26-2021 12:28-0500 SaO2% (BldA) [Mass fraction] 99 % Dr. Shayna Malhotra Work Phone: [facility] Work Phone: 07-26-2021 12:28-0500 Systolic blood pressure 140 mm[Hg] Dr. Shayna Malhotra Work Phone: [facility] Work Phone: 07-26-2021 11:28-0500 Diastolic blood pressure 72 mm[Hg] Dr. Shayna Malhotra Work Phone: [facility] Work Phone: 07-26-2021 11:28-0500 Heart rate 98 /min Dr. Shayna Malhotra Work Phone: [facility] Work Phone: 07-26-2021 11:28-0500 Respiratory rate 23 /min Dr. Shayna Malhotra Work Phone: [facility] Work Phone: 07-26-2021 11:28-0500 SaO2% (BldA) [Mass fraction] 99 % Dr. Shayna Malhotra Work Phone: [facility] Work Phone: 07-26-2021 11:28-0500 Systolic blood pressure 140 mm[Hg] Dr. Shayna Malhotra Work Phone: [facility] Work Phone: 07-26-2021 09:16-0500 Body mass index (BMI) [Ratio] 52.2 kg/m2 Dr. Shayna Malhotra Work Phone: [facility] Work Phone: 07-26-2021 09:16-0500 Body temperature 97.2 [degF] Dr. Shayna Malhotra Work Phone: [facility] Work Phone: 07-26-2021 09:16-0500 Body weight 142.[address] Shayna Malhotra Work Phone: [facility] Work Phone: 07-26-2021 08:16-0500 Body mass index (BMI) [Ratio] 52.2 kg/m2 Dr. Shayna Malhotra Work Phone: [facility] Work Phone: 07-26-2021 08:16-0500 Body temperature 97.2 [degF] Dr. Shayna Malhotra Work Phone: [facility] Work Phone: 07-26-2021 08:16-0500 Body weight 142.[address] Shayna Malhotra Work Phone: [facility] Work Phone: 10-26-2016 15:36-0400 BMI (Body Mass Index) 41.6 kg/m2 Sena Cox NP [facility] Work Phone: 10-26-2016 15:36-0400 BP Diastolic 97 mm[Hg] Sena Cox NP [facility] Work Phone: 10-26-2016 15:36-0400 BP Systolic 155 mm[Hg] Sena Cox NP [facility] Work Phone: 10-26-2016 15:36-0400 BSA (Body Surface Area) 2.12 m2 Sena Cox NP [facility] Work Phone: 10-26-2016 15:36-0400 Height 162.56 cm Sena Cox NP [facility] Work Phone: 10-26-2016 15:36-0400 Pulse (Heart Rate) 101 /min [facility] Work Phone: 10-26-2016 15:36-0400 Pulse Oximetry 97 % Sena Cox NP [facility] Work Phone: 10-26-2016 15:36-0400 Respiratory Rate 16 /min Sena Cox NP [facility] Work Phone: 10-26-2016 15:36-0400 Weight 109.95 kg Sena Cox NP [facility] Work Phone: Encounters Encounter Date Encounter Type Care Provider Facility Start: 11-26-2024 ambulatory Shayna Malhotra Facility :[facility] Start: 11-07-2024 ambulatory Shaynadesi Malhotra Facility :[facility] Start: 11-01-2024 ambulatory Shayna Marya Facility :[facility] Start: 10-30-2024 ambulatory Shaynadesi Malhotra Facility :[facility] Start: [facility] Start: 10-11-2024 End: 10-11-2024 ambulatory Shayna Marya Facility:[facility] Start: 10-10-2024 Non-patient / Non-visit Dr. Tyrell Page MD -[facility] Work Phone: Start: 10-09-2024 ambulatory Shaynadesi Malhotra Facility :[facility] Start: 10-09-2024 End: 10-11-2024 Evaluation and management of inpatient Dr. Missael Hernandez DO -[facility] Work Phone: Start: 10-09-2024 Registered Referred Shayna Resendez -[facility] Work Phone: Start: 10-08-2024 End: 10-09-2024 ambulatory Shayna ROSA Facility:[facility] Start: 07-09-2024 ambulatory Shayna ROSA Faci lity:[facility] Start: 07-09-2024 Registered Referred Shayna Resendez -[facility] Work Phone: Start: 07-04-2024 End: 07-04-[address] Shayna Malhotra MD -[facility] Work Phone: Start: 07-04-2024 End: 07-04-2024 ambulatory Shayna Malhotra Facility[place] Start: 06-22-2024 ambulatory Shayna Malhotra Facility :[facility] Start: 05-28-2024 End: 05-28-2024 ambulatory Shayna Malhotra Facility:[facility] Start: 04-09-2024 End: 04-09-2024 ambulatory Shayna ROSA Facility:[facility] Start: 01-09-20[facility] Start: 07-08-2023 End: 07-08-2023 ambulatory [facility] Work Phone: Start: 07-08-2023 End: 07-08-2023 Departed Referred [facility] Work Phone: Start: 04-08-2023 End: 04-08-2023 Departed Referred [facility] Work Phone: Start: 01-09-2023 End: 01-09-2023 Emergency department patient visit Dr. Shayna Malhotra Work Phone: [facility]-Emergency Department Work Phone: Start: 11-24-2022 End: 11-24-[address] Shayna Malhotra Work Phone: [facility] Work Phone: Start: 10-13-2022 End: 10-13-[address] Shayna Malhotra Work Phone: [facility] Work Phone: Start: 08-12-2022 End: 08-12-[address] Shayna Malhotra Work Phone: [facility] Work Phone: Start: 08-12-2022 End: 08-12-[address] Shayna Malhotra Work Phone: [facility] Start: 07-13-2022 End: 07-13-[address] Shayna Malhotra Work Phone: [facility] Work Phone: Start: 07-13-2022 End: 07-13-[address] Shayna Malhotra Work Phone: [facility] Start: 06-08-2022 End: 06-08-[address] Shayna Malhotra Work Phone: [facility] Work Phone: Start: 06-08-2022 End: 06-08-[address] Shayna Malhotra Work Phone: [facility] Start: 05-06-2022 End: 05-06-[address] Shayna Malhotra Work Phone: [facility] Start: 04-13-2022 End: 04-13-2022 ambulatory [facility] Work Phone: Start: 04-13-2022 End: 04-13-2022 Departed Referred [facility] Start: 01-01-2022 End: 01-01-[address] Shayna Malhotra Work Phone: [place] [phone] Start: 12-11-[address] Shayna Malhotra Work Phone: [place] [phone] Start: 12-01-[address] Shayna Malhotra Work Phone: [facility] 100/200 Start: 11-27-[address] Shayna Malhotra Work Phone: [facility] 100/200 Start: 11-24-2021 Non-patient / Non-visit Dr. Maryanne Malhotra Work Phone: [facility] Start: 11-23-2021 Non-patient / Non-visit Dr. Maryanne Malhotra Work Phone: [facility] Start: 11-23-2021 End: 11-24-2021 Non-patient / Non-visit Dr. Shayna Malhotra Work Phone: [facility] Start: 11-22-2021 Non-patient / Non-visit Dr. Maryanne Malhotra Work Phone: [facility] Start: 11-22-2021 End: 11-24-2021 Evaluation and management of inpatient Dr. Shayna Malhotra Work Phone: [facility] Start: 10-27-2021 End: 10-27-[address] Shayna Malhotra Work Phone: [facility] Start: 10-13-2021 End: 10-13-[address] Shayna Malhotra Work Phone: [facility] Start: 10-13-[address] Shayna Malhotra Work Phone: [facility] Start: 10-02-2021 End: 10-02-2021 ambulatory Jennifer Cuevas MD Work Phone: [facility] Gynecology Oncology Comment on above: Endometrial cancer ( HCC) (Primary Dx) Start: 10-02-2021 End: 10-02-2021 Patient encounter procedure Jennifer Cuevas MD Work Phone: [facility] Start: 09-22-2021 Non-patient / Non-visit Dr. Maryanne Malhotra Work Phone: [facility] Start: 09-21-2021 Telephone encounter Jennifer prasad MD Work Phone: [facility] Gynecology Oncology Comment on above: Appointment Cancelle d Start: 09-21-2021 Non-patient / Non-visit Dr. Maryanne Malhotra Work Phone: [facility] Start: 09-20-2021 Non-patient / Non-visit Dr. Maryanne Malhotra Work Phone: [facility] Start: 09-20-2021 End: 09-22-2021 Evaluation and management of inpatient Dr. Shayna Malhorta Work Phone: [facility] Surgical 3 Start: 09-10-2021 Telephone encounter Taniya Balderas APRN.CNP Work Phone: [facility] Gynecology Oncology Comment on above: Results Start: 09-10-2021 End: 09-10-[address] Shayna Malhotra Work Phone: [facility] Start: 09-10-[address] Shayna Malhotra Work Phone: [facility] Start: 09-09-2021 Telephone encounter Jennifer prasad MD Work Phone: [facility] Gynecology Oncology Comment on above: Patient Update Start: 09-01-2021 End: 09-01-2021 Admission to [address] Start: 09-01-2021 End: 09-01-2021 ambulatory Pst [...] encounter procedure Dr. Shayna Malhotra Work Phone: [facility]-Radiology, [facility] Start: 08-07-2021 End: 08-07-[address] [facility] Start: 07-30-[address] Shayna Malhotra Work Phone: [facility] Start: 07-30-2021 End: 07-30-[address] Shayna Malhotra Work Phone: [facility] Start: 07-26-2021 End: 07-26-2021 Emergency department patient visit Dr. Shay[facility] Start: 07-14-[address] Shayna Malhotra Work Phone: [facility] Start: 07-08-[address] Shayna Malhotra Work Phone: [facility] Start: 06-12-[address] Shayna Malhotra Work Phone: [facility] Procedures Date Procedure Procedure Detail Performing Clinician [...] Speci men Type: BLOOD SPECIMEN Ordering Facility: [facility] Address: [address] [place], [place] [id number] Performed By: #### T [id number] #### [facility] CLIA [id number] [address] Start: 08-11-2021 Plain chest X-ray Dr. Jean [...] Activity Detail Author Start: 10-11-2024 Patient discharge [facility] Start: 10-10-2024 [facility] Start: 10-10-2024 Consultation [facility] Start: 10-10-2024 Patient referral to dietitian [facility] Start: 10-09-2024 Following clinical pathway protocol [facility] Start: 10-09-2024 Assessment of risk o f venous thromboembolism [facility] Start: 10-09-2024 Care regimes management [facility] Start: 10-09-2024 Incentive spirometry [facility] Start: 10-09-2024 Insertion of cathete r into peripheral vein [facility] Start: 10-09-2024 Measuring intake and output [facility] Start: 10-09-2024 Notification of physician [facility] Start: 10-09-2024 Oxygen therapy [facility] Start: 10-09-2024 Providing care accor ding to standard [facility] Start: 10-09-2024 Provision of activit y privileges [facility] Start: 10-09-2024 Referral to occupati onal therapist [facility] Start: 10-09-2024 Referral to service [facility] Start: 10-09-2024 Seizure precautions [facility] Start: 10-09-2024 End: 10-09-2024 [facility] Start: 10-09-2024 MR Lower extremity W O contrast [facility] Start: 10-09-2024 MRI of lower extremity Extremi ty Lower without Contra [facility] Start: 10-09-2024 Verification routine [facility] Start: 10-09-2024 Admission procedure [facility] Start: 10-09-2024 Hospital admission, emergency, from emergency room, medical nature [facility] Start: 10-09-2024 End: 10-10-2024 [facility] Start: 10-09-2024 Thyroid stimulating hormone measurement [facility] Start: 10-09-2024 Consultation [facility] Start: 10-09-2024 Bacteria identified in Urine by Culture Urine Culture [facility] Start: 10-09-2024 Urine culture [facility] Start: 10-09-2024 Consultation [facility] Start: 10-09-2024 Patient referral to dietitian [facility] Start: 09-07-2024 DIABETES SCREEN DIABETES SCREEN [facility] Start: 07-04-2024 Patient referral [facility] Work Phone: Start: 11-24-2022 Patient referral [facility] Work Phone: Start: 05-06-2022 Patient referral [facility] Work Phone: Start: 02-04-2022 Influenza vaccination INFLUENZ A (Season Ended) [facility] Start: 11-25-2021 [facility] Work Phone: Start: 11-24-2021 Patient discharge [facility] Work Phone: Start: 11-22-2021 Troponin I measurement [facility] Work Phone: Start: 11-22-2021 Verification routine [facility] Work Phone: Start: 11-22-2021 Patient referral to dietitian [facility] Work Phone: Start: 11-22-2021 Following clinical pathway protocol [facility] Work Phone: Start: 11-22-2021 Assessment of risk o f venous thromboembolism [facility] Work Phone: Start: 11-22-2021 Care regimes management [facility] Work Phone: Start: 11-22-2021 Catheterization of vein [facility] Work Phone: Start: 11-22-2021 Insertion of cathete r into peripheral vein [facility] Work Phone: Start: 11-22-2021 Measuring intake and output [facility] Work Phone: Start: 11-22-2021 Providing care accor ding to standard [facility] Work Phone: Start: 11-22-2021 Provision of activit y privileges [facility] Work Phone: Start: 11-22-2021 Referral to occupati onal therapist [facility] Work Phone: Start: 11-22-2021 Referral to service [facility] Work Phone: Start: 11-22-2021 [facility] Work Phone: Start: 11-22-2021 Viral nucleic acid assay [facility] Work Phone: Start: 11-22-2021 Admission procedure [facility] Work Phone: Start: 11-22-2021 [facility] Work Phone: Start: 11-22-2021 End: 11-23-2021 [facility] Work Phone: Start: 11-22-2021 End: 11-22-2021 Blood culture [facility] Work Phone: Start: 09-22-2021 Patient discharge [facility] Work Phone: Start: 09-20-2021 End: 09-21-2021 [facility] Work Phone: Start: 09-20-2021 Following clinical pathway protocol [facility] Work Phone: Start: 09-20-2021 Assessment of risk o f venous thromboembolism [facility] Work Phone: Start: 09-20-2021 Care regimes management [facility] Work Phone: Start: 09-20-2021 Elevation of affecte d extremity [facility] Work Phone: Start: 09-20-2021 Insertion of cathete r into peripheral vein [facility] Work Phone: Start: 09-20-2021 Notification of physician [facility] Work Phone: Start: 09-20-2021 Providing care accor ding to standard [facility] Work Phone: Start: 09-20-2021 Provision of activit y privileges [facility] Work Phone: Start: 09-20-2021 Referral to occupati onal therapist [facility] Work Phone: Start: 09-20-2021 Referral to service [facility] Work Phone: Start: 09-20-2021 Self-administration of medication [facility] Work Phone: Start: 09-20-2021 Admission procedure [facility] Work Phone: Start: 09-20-2021 Patient referral to dietitian [facility] Work Phone: Start: 09-01-2021 End: 11-01-2021 CBC panel - Blood by Automated count [facility] Work Phone: Comment on above: Expected: 09/01/2021 , Expires: 11/01/2021 Start: 09-01-2021 End: 11-01-2021 CONFIRM BLOOD TYPE [facility] Work Phone: Comment on above: Expected: 09/01/2021 , Expires: 11/01/2021 Start: 09-01-2021 End: 11-01-2021 TYPE AND SCREEN,30 DAY [facility] Work Phone: Comment on above: Expected: 09/01/2021 , Expires: 11/01/2021 Start: 07-26-2021 Referral to oncologist [facility] Work Phone: Start: 06-06-2021 ADVANCE DIRECTIVE DISCUSSION ADVANCE DIRECTIVE DISCUSSION [facility] Start: 02-09-2021 LIPID SCREEN LIPID SCREEN [facility] Start: 02-04-2021 Influenza vaccination INFLUENZA (#1) [facility] Start: 03-01-2019 DIABETES SCREEN DIABETES SCREEN [facility] Start: 2017 BONE DENSITY BONE DENSITY [facility] Start: 2017 PNEUMOVAX AGE 65 AND OVER WITH 5YR LOOKBACK (#1) PNEUMOVAX AGE 65 AND OVER WITH 5YR LOOKBACK (#1) [facility] Start: 02-09-2017 Adult depression screening assessment DEPRESSION SCREENING [facility] Start: 02-09-2017 Mammography MAMMOGRAM [facility] Start: 12-09-2016 End: 12-09-2016 Appointment [facility] Work Phone: Start: 10-26-2016 End: 10-26-2016 Appointment Appointment [facility] Work Phone: Start: 10-26-2016 End: 10-26-2016 Appointment Appointment [facility] Work Phone: Start: 10-26-2016 End: 11-01-2016 *CMP Complete Metabolic Panel *CMP Complete Metabolic Panel [facility] Work Phone: Start: 10-26-2016 End: 11-01-2016 *Microalbumin, Creatine Ratio, rand urine *Microalbumin, Creatine Ratio, rand urine [facility] Work Phone: Start: 10-26-2016 End: 11-01-2016 HbA1c *HgA1C [facility] Work Phone: Start: 10-26-2016 End: 11-01-2016 Lipid panel [AGGREGATE] *Lipid Profile [facility] Work Phone: Start: 09-05-2011 PNEUMOCOCCAL: 65+ (2 - PCV) PNEUMOCOCCAL: 65+ (2 - PCV) [facility] Start: 2002 SHINGRIX VACCINE (1 of 2) SHINGRIX VACCINE (1 of 2) [facility] Start: 1997 COLOGUARD (FIT-DNA) COLOGUARD (FIT-D NA) [facility] Start: 1997 Colonoscopy COLONOSCOPY [facility] Start: 1997 COLORECTAL CANCER SCREENING COLORECTAL CANCER SCREENING [facility] Start: [address] COLONOGRAPHY [facility] Start: 1997 FECAL OCCULT BLOOD FECAL OCCULT BLOO D [facility] Start: 1997 SIGMOIDOSCOPY SIGMOIDOSCOPY [facility] Start: 12-28-1971 SHINGRIX VACCINE (1 of 2) SHINGRIX VACCINE (1 of 2) [facility] Start: 12-28-1971 Urine microalbumin profile DTAP,TDAP,TD (1 - Tdap) [facility] Start: 1957 COVID-19 VACCINE (#1) COVID-19 VACCI NE (#1) [facility] Start: 1957 COVID-19 VACCINE (1) COVID-19 VACCIN E (1) [facility] Amphetamines [Presen ce] in Urine by Screen method >1000 ng/mL [facility] Bacteria identified in Blood by Culture Blood Culture [facility] Work Phone: Bacteria identified in Urine by Culture Urine Culture [facility] Work Phone: Benzodiazepine measurement, urine [facility] Blood culture [facility] Work Phone: C reactive protein [Mass/volume] in Serum or Plasma [facility] Cancer Ag 125 [Units/volume] in Serum or Plasma [facility] Work Phone: Cocaine measurement, urine [facility] Erythrocyte sedimentation rate [facility] Ethanol [Mass/volume ] in Serum or Plasma [facility] fentaNYL [Presence] in Urine by Screen method [facility] Folate [Moles/volume ] in Serum or Plasma [facility] Hemoglobin A1c/Hemoglobin.total in Blood [facility] Magnesium measurement [facility] Methadone measuremen t, urine [facility] Patient Education [facility] Work Phone: Patient referral [facility] Work Phone: Phencyclidine [Prese nce] in Urine [facility] Troponin I measurement [facility] Work Phone: Urine cannabinoid measurement [facility] Urine culture [facility] Urine opiate measurement [facility] Immunizations Immunization Date Immunization Notes Care Provider Arlin sen 03-30-2016 influenza, injectabl e, quadrivalent, preservative free [facility] 03-30-2016 influenza, seasonal, injectable Dr. Shayna Malhotra Work Phone: [facility] 10-31-2012 influenza, injectabl e, quadrivalent, preservative free [facility] 10-31-2012 influenza, seasonal, injectable Dr. Shayna Malhotra Work Phone: [facility] 06-06-2012 pneumococcal polysaccharide vaccine, [address] Shayna Malhotra Work Phone: [facility] 09-04-2010 pneumococcal polysaccharide vaccine, [address] [facility] Work Phone: Payers Date Payer Category Payer Self-pay [id number] 2021 Medicare [id number] [id number] 2016 Unknown [id number] 2016 Unknown [id number] Unknown [id number] 2.16.8 [id number] Unknown [id number] 2.16.8 [id number] Unknown [id number] 2.16.8 [id number] Unknown [id number] 2.16.8 [id number] Unknown [id number] 2.16.8 [id number] Unknown [id number] 2.16.8 [id number] Unknown [id number] 2.16.8 [id number] Unknown [id number] 2.16.8 [id number] Unknown [id number] 2.16.8 [id number] Unknown [id number] 2.16.8 [id number] Unknown [id number] 2.16.8 [id number] Unknown [id number] 2.16.8 [id number] Unknown [id number] 2.16.8 [id number] Unknown [id number] 2.16.8 [id number] Unknown [id number] 2.16.8 [id number] Unknown [id number] 2.16.8 [id number] Unknown [id number] 2.16.8 [id number] Unknown [id number] 2.16.8 [id number] Social History Date Type Detail Facility Start: 07-29-2021 End: 10-09-2024 Tobacco smoking status NHIS Ex-smoker [facility] History of tobacco use Cigarette Smoker [facility] Start: 07-29-2021 Cigarettes smoked current (pack per day) - Reported 0.5 [facility] Start: 07-29-2021 Tobacco use and exposure Smokeless tobacco non-user [facility] Start: 09-01-2021 End: 10-02-2021 Alcohol intake Current non-drinker of alcohol (finding) [facility] Start: 1950 Sex Assigned At Not on file [facility] Start: 08-22-2021 End: 10-02-2021 Exposure to SARS-CoV-2 (event) Not sure [facility] Start: 09-20-2021 End: 01-09-2023 Tobacco smoking status NVIS Unknown if ever smoked [facility] Start: 08-02-2017 None [facility] Start: 08-02-2017 Alone [facility] Start: 08-02-2017 Non-smoker [facility] Start: 1950 Sex Assigned At Female W [facility] Start: 10-09-2024 Sex Female (finding) [facility] Procedure Code Equipment Code Equipment Origin al Text Equipment Identifier Dates Blood Sugar Diagnostic (Freestyle Lite Strips) strip Start: 03-01-2019 Blood Sugar Diagnostic (Freestyle Lite Strips) strip Start: 09-14-2017 Lancets ([facility] le [facility]ets) [address] [facility] [facility] Start: 03-01-2019 Blood Sugar Diagnostic (Freestyle Lite Strips) strip Start: 09-14-2017 End: 09-14-2017 Blood Sugar Diagnostic (Freestyle Lite Strips) strip Start: 03-01-2019 Blood Sugar Diagnostic (Freestyle Lite Strips) strip Start: 09-14-2017 Lancets (Freesty le Lancets) [address] [facility] [facility] Start: 03-01-2019 Blood Sugar Diagnostic (Freestyle Lite [...] Activity Abili ty With Assist of 2 [facility] Work Phone: 10-10-2024 Functional status Active Range of Motion [facility] Work Phone: 11-24-2021 Functional status Ambulates;Chair [facility] Work Phone: 09-22-2021 Functional status Ambulates [facility] Work Phone: 09-22-2021 Functional status Ambulates [facility] Work Phone: 09-21-2021 Functional status Tolerates Activity Well [facility] Work Phone: Mental Status Date Assessment Result Facility 10-11-2024 Cognitive function Voice/Name [facility] Work Phone: 10-10-2024 Cognitive function Cooperative;Anxious;Ta lkative [facility] Work Phone: 11-24-2021 Cognitive function Voice/Name [facility] Work Phone: 09-22-2021 Cognitive function Voice/Name [facility] Work Phone: 09-20-2021 Cognitive function Level Of Cons ciousness Awake;Alert;Appropriate;Follow s Commands;Drowsy [facility] Work Phone: Clinical Notes 07-29-2021 to 10-11-2024 Note Date & Type Note Facility 10-11-2024 Note [facility] Medical Records Department [address] [place] [address] Discharge Summary 10/11/24 1135 MR#: [id number] Acct: [id number] Name: VIDA NINA Rep #: [id number] : 1950 73 From: Tyrell Page MD PCP: Dr. Shayna Malhotra MD Status:DIS [id number] Prov[facility] Date of Admission: 10/09/24 Date of [...] status: with other specified complication Diabetes mellitus correction insulin use: with electronics computer mechanic use Qualified Code(s): E11.69 - Type 2 diabetes mellitus with other specified complication; Z79.4 - [facility] (current) use of insulin Plan 73-year-old female [...] edema. No soft tissue gas. Will consult gauge and instrument inspector for further opinion. PT and OT and pain control. CRP and ESR elevated. 5: Yesterday evening patient has psychotic symptoms of [...] 72.1 H, Lymph % (Auto) 16.3 L, [place] % (Auto) 8.3, Eos % (Auto) 2.5, Baso % (more content not included)... [facility] 10-10-2024 Progress note Note Date/Time October 10, 2024 4:49pm [facility] Medical Records Department [address] [place] [address] Progress Note - Hospitalist 10/10/24 0739 MR#: [id number] Acct: [id number] Name: VIDA NINA Rep #:[id number] : 1950 73 From: Tyrell Reesndez PCP: Dr. 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 Soft tissue swelling. Reading Location: [facility] Lower Extremity CT 10/09/24 22:15 IMPRESSION: Lateral [...] Hernandez at 2:20 a.m. 10/10/2024 Reading Location: [facility] Physical Exam Narrative Seen and examined. [...] status: with other specified complication Diabetes mellitus electronics computer mechanic insulin use: with correction use Qualified Code(s): E11.69 - Type 2 [...] edema. No soft tissue gas. Will consult gauge and instrument inspector for further opinion. PT and OT and [...] 72.1 H, Lymph % (Auto) 16.3 L, [place] % (Auto) 8.3, Eos % (Auto) 2.5, [...] Clarity Cloudy, Urine pH 5.0, Ur Specific [place] 1.020, Urine Protein 30 H, Urine Glucose [...] % (Auto) 65.4, Lymph % (Auto) 19.6, [place] % (Auto) 9.1, Eos % (Auto) 5.1 [...] 165 H Charges/Coding Visit Charges Inpatient E&M: 21332 Subs Hosp L2 10/10/24 1530 <Electronically signed [...] Cosigner Signature (if applicable): cc: ~* Signed [facility] Work Phone: 1(876) 305-343805-07-2025 Progress note [facility] Medical Records Department [address] [place] [address] Progress Note - Hospitalist 10/10/24738 MR#: [id number] Acct: [id number] Name: VIDA NINA Rep #:[id number] : 1950 73 From: Tyrell Resendez PCP: Dr. Shayna Malhotra MD Status:ADM IN Location: MS3 DO365-0 Reason for Visit Reason for Visit: Diagnoses [...] 72.1 H, Lymph % (Auto) 16.3 L, Coamo % (Auto) 8.3, Eos % (Auto) 2.5, [...] Clarity Cloudy, Urine pH 5.0, Ur Specific [place] 1.020, Urine Protein 30 H, Urine Glucose [...] % (Auto) 65.4, Lymph % (Auto) 19.6, Coamo % (Auto) 9.1, Eos % (Auto) 5.1 [...] changes. Soft tissue swelling. Reading Location: [place] Lower Extremity CT 10/09/24 22:15 IMPRESSION: Lateral [...] Hernandez at 2:20 a.m. 10/10/2024 Reading Location: [facility] Physical Exam Narrative Seen and examined. [...] status: with other specified complication Diabetes mellitus electronics computer mechanic insulin use: with correction use Qualified Code(s): E11.69 - Type 2 [...] edema. No soft tissue gas. Will consult gauge and instrument inspector for further opinion. PT and OT and [...] 72.1 H, Lymph % (Auto) 16.3 L, [place]amo % (Auto) 8.3, Eos % (Auto) 2.5, [...] Clarity Cloudy, Urine pH 5.0, Ur Specific [place] 1.020, Urine Protein 30 H, Urine Glucose [...] % (Auto) 65.4, Lymph % (Auto) 19.6, Coamo % (Auto) 9.1, Eos % (Auto) 5.1 [...] 165 H Charges/Coding Visit Charges Inpatient E&M: 94189 Subs Hosp L2 10/10/24 1530 Cosigner Signature [...] Cosigner Signature (if applicable): cc: ~* Signed [facility]05-07-2025 History and physical note Author Missael Lomeli [facility] Note Date/Time October 10, 2024 6:53am [facility] Medical Records Department [address] [place] [address] H&P Exam - Hospitalist 10/09/242118 MR#: [id number] Acct: [id number] Name: VIDA NINA Rep #:[id number] : 1950 73 From: Missael Joiner DO PCP: Dr. Shayna Malhotra MD Status:ADM IN Location: MS3 FA896-3 [facility] - General General Date of Admission: [...] is currently residing in assisted living at 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 [facility] Medical History Obesity Anxiety Cancer Anxiety [...] acetonide 0.1 % 1 applic topical Q12H TN N PRN Rash 09/20/21 Unknown History topical [...] D #0 grams 11/24/21 Unknown Rx powder ([facility]) quetiapine 100 mg tablet 300 mg (3 [...] (Auto) 72.1 H, Lymph % (Auto) 16.3 L,Coamo % (Auto) 8.3, Eos % (Auto) 2.5, [...] Clarity Cloudy, Urine pH 5.0, Ur Specific [place] 1.020, Urine Protein 30 H, Urine Glucose [...] changes. Soft tissue swelling. Reading Location: [facility] Imaging Services [address] [place] [address] Extremity Lower without Contra MR#: [id number] Acct: [id number] Name: VIDA NINA Rep #: [id number] : 1950 F 73 From: Saul Sanchez MD PCP: Dr. Shayna Malhotra MD Status: ADM IN Study: Extremity Lower without Contra Date of Exam: 10/09/24 Exam# [id number] Ordering Dr: Missael Hernandez DO PROCEDURE: EXTREMITY [...] Hernandez at 2:20 a.m. 10/10/2024 Reading Location: [facility] CC: Dr. Missael Hernandez DO; Dr. Shayna Malhotra MD ~ Engraving Operator: Signed Assessment & Plan Assessment/Plan (1) Acute cystitis with hematuria: (2) Neuropathic pain of foot: (3) Poor hygiene: (4) Unable to care for self: (5) Bipolar 1 disorder: (6) Morbid obesity with BMI of 45.0-49.9, adult: (7) DM2 (diabetes mellitus, type 2): QUALIFIERS: Diabetes mellitus complication status: with other specified complication Diabetes mellitus electronics computer mechanic insulin use: with electronics computer mechanic use Qualified Code(s): E11.69 - Type 2 diabetes mellitus with other specified complication; Z79.4 - [facility] (current) use of insulin PLAN: Plan 1. Acute Cystitis; with microscopic hematuria in the setting of known frequent UTIs - Admit to general medical floor. Continue empiric IV ceftriaxone and await culture and sensitivity data. Give acetaminophen as needed for slcd-nt-wlsufzlp (level 1- 5/10) pain or fever. Give [...] patient Unable to Care for Herself at [facility] after the recent incarceration of her [...] 75 minutes. Charges/Coding Visit Charges Inpatient E&M: 70748 Init Hosp L3 10/10/24 0653 <Electronically signed by Missael Hernandez DO> Cosigner Signature (if applicable): CC: Dr. Missael Hernandez DO; Dr. Shayna Malhotra MD~ Signed [facility] Work Phone: 1(506) 585-441005-07-2025 History and physical note [facility] Medical Records Department [address] [place] [address] H&P Exam - Hospitalist 10/09/242118 MR#: [id number] Acct: [id number] Name: VIDA NINA Rep #:[id number] : 1950 73 From: Missael Joiner DO PCP: Dr. Shayna Malhotra MD Status:ADM IN Location: [facility] OC117-3 [facility] - General General Date of Admission: [...] is currently residing in assisted living at [facility] presents to [facility] ER complaining of worsening Leftheel pain [...] skin folds and extremely poor hygiene with CABINET WORKER having social work consulted and patient felt [...] is expected to extend beyond 2 midnights. [facility] Medical History Obesity Anxiety Cancer Anxiety [...] acetonide 0.1 % 1 applic topical Q12H TN N PRN Rash 09/20/21 Unknown History topical [...] D #0 grams 11/24/21 Unknown Rx powder ([facility]) quetiapine 100 mg tablet 300 mg (3 [...] (Auto) 72.1 H, Lymph % (Auto) 16.3 L,Coamo % (Auto) 8.3, Eos % (Auto) 2.5, [...] Clarity Cloudy, Urine pH 5.0, Ur Specific [place] 1.020, Urine Protein 30 H, Urine Glucose [...] changes. Soft tissue swelling. Reading Location: [place] [facility] Imaging Services [address] [place] [address] Extremity Lower without Contra MR#: [id number] Acct: [id number] Name: VIDA NINA Rep #: [id number] : 1950 F 73 From: Saul Sanchez MD PCP: Dr. Shayna Malhotra MD Status: ADM IN Study: Extremity Lower without Contra Date of Exam: 10/09/24 Exam# [id number] Ordering Dr: Missael Hernandez DO PROCEDURE: EXTREMITY [...] Hernandez at 2:20 a.m. 10/10/2024 Reading Location: [facility] CC: Dr. Missael Hernandez, DO; Dr. Shayna Malhotra MD ~ Engraving Operator: Signed Assessment & Plan Assessment/Plan (1) Acute cystitis with hematuria: (2) Neuropathic pain of foot: (3) Poor hygiene: (4) Unable to care for self: (5) Bipolar 1 disorder: (6) Morbid obesity with BMI of 45.0-49.9, adult: (7) DM2 (diabetes mellitus, type 2): QUALIFIERS: Diabetes mellitus complication status: with other specified complication Diabetes mellitus electronics computer mechanic insulin use: with electronics computer mechanic use Qualified Code(s): E11.69 - Type 2 diabetes mellitus with other specified complication; Z79.4 - [facility] (current) use of insulin PLAN: Plan 1. Acute Cystitis; with microscopic hematuria in the setting of known frequent UTIs - Admit to general medical floor. Continue empiric IV ceftriaxone and await culture and sensitivity data. Give acetaminophen as needed for nbph-aj-stvzpowx (level 1-5/10) pain or fever. Give oxycodone [...] [facility] [...] 75 minutes. Charges/Coding Visit Charges Inpatient E&M: 68793 Init Hosp L3 10/10/24 8469 Cosigner Signature (if applicable): CC: Dr. Missael Hernandez DO; Dr. Shayna Malhotra MD~ Signed [facility]05-07-2025 Radiology Diagnostic study note [facility] Imaging Services [address] [place] [address] Extremity Lower without Contra MR#: [id number] Acct: [id number] Name: VIDA NINA Rep #: [id number] : 1950 F 73 From: Daniel Sanchez MD PCP: Dr. Shayna Malhotra MD Status: ADM IN Study:Extremity Lower without Contra Date of Exam: 10/09/24 Exam# [id number] Ordering Dr: Missael Piña DO PROCEDURE: EXTREMITY [...] Hernandez at 2:20 a.m. 10/10/2024 Reading Location: [facility] CC: Dr. Missael Hernandez DO; Dr. Shayna Malhotra MD ~ Engraving Operator: Signed [facility]05-06-2025 Discharge summary Author Dany Richardson [facility] Note Date/Time October 09, 2024 9:22pm [facility] Medical Records Department [address] [place] [address] Emergency Department Summary 10/09/24 MR#: [id number] Acct: [id number] Name: VIDA NINA Rep #:[id number] : 1950 73 From: Dany Richardson MD PCP: Dr. Shayna Malhotra MD Status:REG ER Location: ED HPI History of Present Illness Chief Complaint: Lower Extremity Injury Narrative Narrative: 73-year-old female states that she had pins placed in her left foot approximately 15 years ago [place] after breaking her heel. She is currentlyin [facility]. She states for the last 2 weeks she has been having increasing foot pain. She states that on Tuesday, probably of the last week, she had [facility] at the [facility]. She went and saw Dr. Shayna Malhotra on Tuesday, but he did not have the x-ray results. She states that she is having a lot of pain in her left heel that is worse with weightbearing and walking and palpation. She states that it feels as if she is having a baby out of her left heel. [facility] Medical History Obesity Anxiety Cancer Anxiety [...] acetonide 0.1 % 1 applic topical Q12H TN N PRN Rash 09/20/21 Unknown History topical [...] D #0 grams 11/24/21 Unknown Rx powder ([facility]) quetiapine 100 mg tablet 300 mg (3 [...] nonspecific foot pain. She was given 1 [place] for analgesia here, and x- rays were [...] plan was to discharge her back to [facility], however I was approached by the [...] 72.1 H Lymph % (Auto) 16.3 L Coamo % (Auto) 8.3 Eos % (Auto) 2.5 [...] Clarity Cloudy Urine pH 5.0 Ur Specific [place] 1.020 Urine Protein 30 H Urine Glucose [...] tract infection) Disposition Disposition: Acute Care Hospital [facility] What to do if you have Problems For any increased pain, shortness of breath, bleeding, nausea or vomiting, chestpain, or any unexpected problems, contact your Primary Care Provider. Call [facility] ([phone]) or report to the closest Emergency Room. Call 911 if necessary. 10/09/242121 <Electronically signed by Dany Richardson MD> Cosigner Signature (if applicable): CC: Dr. Shayna Malhotra MD ~ Signed [facility] Work Phone: 1(567) 319-443205-06-2025 Discharge summary [facility] Medical Records Department [address] [place] [address] Emergency Department Summary 10/09/24 MR#: [id number] Acct: [id number] Name: VIDA NINA Rep #:[id number] : 1950 73 From: Dany Richardson MD PCP: Dr. Shayna Malhotra MD Status:REG ER Location: ED HPI History of Present Illness Chief Complaint: Lower Extremity Injury Narrative Narrative: 73-year-old female states that she had pins placed in her left foot approximately 15 years ago [place] after breaking her heel. She is currentlyin [facility]. She states for the last 2 weeks she has been having increasing foot pain. She states that on Tuesday, probably of the last week, she had [facility]bt[facility] at the [facility]. She went and saw Dr. Shayna Malhotra on Tuesday, but he did not have thex-ray results. She states that she is having a lot of pain in her left heel that is worse with weightbearing and walking and palpation. She states that it feels as if she is having a baby out of her left heel. [facility] Medical History Obesity Anxiety Cancer Anxiety [...] acetonide 0.1 % 1 applic topical Q12H TN N PRN Rash 09/20/21 Unknown History topical [...] History powder primary doctor blood sugar [facility] Unknown Hi story Lite Strips) blood-glucose meter ([facility] Unknown Histo ry Lite Meter kit) lancets 28 gauge ([facility] 11/23/21 Unknown History Lancets) nystatin 100,000 unit/gram topical 1 applic topical TI D #0 grams 11/24/21 Unknown Rx powder ([facility]) quetiapine 100 mg tablet 300 mg (3 [...] nonspecific foot pain. She was given 1 [place] for analgesia here, and x-rays were obtained of the left footin 3 views. On my independent interpretation of her x-rays, there are postsurgical changes including hardware,but no evidence of a periprosthetic fracture, no noted loosening of hardware. There are arthritic changes as well. I reviewed the radiology report which confirms my independent interpretation. Initially my plan was to discharge her back to [facility], however I was approached by the RNkit informed that the patient actually lives in [...] 72.1 H Lymph % (Auto) 16.3 L Coamo % (Auto) 8.3 Eos % (Auto) 2.5 [...] Clarity Cloudy Urine pH 5.0 Ur Specific [place] 1.020 Urine Protein 30 H Urine Glucose [...] (urinary tract infection) Disposition Disposition: Acute Care [facility] What to do if you have Problems For any increased pain, shortness of breath, bleeding, nausea or vomiting, chestpain, or any unexpected problems, contact your Primary Care Provider. Call [facility] ([phone]) or report tothe closest Emergency Room. Call 911 if necessary. 10/09/242121 Cosigner Signature (if applicable): CC: Dr. Shayna Malhotra MD ~ Signed [facility]05-06-2025 Radiology Diagnostic study note [facility] Imaging Services [address] [place] [address] Foot min 3 Views MR#: [id number] Acct: [id number] Name: VIDA NINA Rep #: [id number] : 1950 F 73 From: Katarina Jiménez MD PCP: Dr. Shayna Malhotra MD Status: REG ER Study:Foot min 3 Views Date of Exam: 11/28 Exam# [id number] Ordering Dr: Dany Richardson MD EXAM: LEFT [...] Richardson MD; Dr. Shayna Malhotra MD ~ Engraving Operator: Signed [facility]01-29-2025 Evaluation note* Diagnosis Onset Date Resolution [...] 2) chronic October 09, 2024 9: 56pm [facility] Work Phone: [phone] NoteHNO ID: [id number] Author: Jennifer Cuevas MD Service: ? Author Type: Physician Type: Progress Notes Filed: 12/01/2021 8:04 AM Note Text: Gynecologic Oncology [facility] Follow up visit Date of service: 10/02/2021 PROBLEM/CC: Vida Nina presents for a post-op visit. SURGICAL PATHOLOGY [[id number]] Collected: 09/07/21 1104 Order Status: Completed Specimen: Tissue from UTERUS, CERVIX, BILATERAL FALLOPIAN TUBES AND BILATERAL OVARIES Updated: 09/11/21 1319 Case Report -- Surgical Pathology Report ? Case: [id number] ? Authorizing Provider: ?Jennifer Cuevas MD ? [...] A11 and A16 were reviewed at the [facility] gynecologic pathology consensus conference via telepathology on 09/09/20[address] Lupe Younger and Andra Franco agree with the diagnosis of acute salpingitis. ? Laboratory Developed Test (LDT) Disclaimer: Performance characteristics of immunohistochemical, immunofluorescent and chromogenic in-situ hybridization tests have been determined by the performing laboratory within [facility] [place] ([facility], [facility], [facility] or [facility]) in a manner consistent with CLIA requirements. [...] pT, pN, and ( (more content not included)...[facility]04-29-2022 History of Present illness Narrative* Jennifer Cuevas MD - 10/02/2021 1:00 PM EDT Gynecologic Oncology [facility] Follow up visit Date of service: 10/02/2021 PROBLEM/CC: Vida Nina presents for a post-op visit. SURGICAL PATHOLOGY [[id number]] Collected: 09/07/21 1104 Order Status: Completed Specimen: Tissue from UTERUS, CERVIX, BILATERAL FALLOPIAN TUBES AND BILATERAL OVARIES Updated: 09/11/21 1319 Case Report -- Surgical Pathology Report Case: [id number] Authorizing Provider: Jennifer Cuevas MD Collected: 09/07/2021 11:04 AM Ordering Location: [facility] Received: 09/07/2021 11:12 AM Pathologist: [...] A11 and A16 were reviewed at the [facility] gynecologic pathology consensus conference via telepathology on 09/09/20[address] Lupe Younger and Andra Franco agree with the diagnosis of acute salpingitis. Laboratory Developed Test (LDT) Disclaimer: Performance characteristics of immunohistochemical, immunofluorescent and chromogenic in-situ hybridization tests have been determined by the performing laboratory within [facility] [place] ([facility], [facility], [facility] or [facility]) in a manner consistent with CLIA requirements. [...] fibrous ovarian parenchyma with no lesions identified. Awning Finisher sections are submitted as follows: A1-anterior cervix [...] A 17-right ovary Gross examination performed at [facility], [address] [place] [address] CLIA#[id number] OLS September 08, 2021 10:33 AM Intraoperative [...] many years since she has seen a ladies underwear operator, maybe > 10 years. Reports normal [...] Her incisions have healed well. Abdomen non-tender. Floor Covering Printer for exam: Sherrie RESULTS: 07/26/21: ULTRASOUND The [...] without Cont on 08-07-2021 Abdomen/Pelvis without Cont [facility] Imaging Services [address] [place] [address] Abdomen/Pelvis without Cont MR#: [id number] Acct: [id number] Name: VIDA NINA Rep #: [id number] : 1950 F 70 From: Power Lopez MD PCP: Dr. Shayna Malhotra MD Status: REG CLI Study: Abdomen/Pelvis without Cont Date of Exam: 09/25 Exam# [id number] Ordering Dr: Saad Villagomez MD STUDY: CT [...] Paper guidelines (Godoy-Parrish, et al. JACR 2017; 14(8):0696-5521) suggest no imaging follow-up is necessary. ACR White Paper guidelines (Godoy-Parrish, et al. JACR 2017; 14(8):3247-8978) suggest no imaging follow-up is necessary. Consider [...] deemed medically necessary. Reviewed prior records from [facility] and Dr. Villagomez (medical oncologist) office. Requested images from CT A/P and ultrasound to be uploaded for review. Noted elevated CA 125. Plan to proceed with surgery in September. Will need preoperative anesthesia appointment. Contact information for Jose Rafael Resendiz: nurse line [phone]; administrative assistant front desk [phone]. Documentation from my notes of previous visit [...] arrange referral to radiation treatment center in [place], [place] five minutes from where she lives. [...] Past Histories independently gathered by the clinical human resources support specialist and the remaining scribed note accurately describes my personal service to the patient. [facility] Nurse Note* Moriah Aldridge RN - 10/02/2021 12:50 PM EDT Patient arrived amb A&Ox4 in [facility] for post op visit. Patient admits to pain in abd and lower back resolved since surgery. Pt denies any new concerns, today. Pt here with Marguerite, friend. Enc and support provided. Moriah Aldridge RN documented in this encounterK[facility]04-18-2022 Miscellaneous Notes* Telephone Encounter - Jeffrey Ferris - 09/21/2021 12:10 PM EDT Spoke to Nurse Bernadine from [facility] stated that the patient is in the hospital and she will call when the patient comes out. So 09/22/21 appt in this office with Dr. Cuevas has been cancelled. Jeffrey Ferris 09/21/21 documented in this encounterK[facility]04-07-2022 Miscellaneous Notes* Telephone Encounter - Taniya Balderas APRN.MICHELLE - 09/10/2021 8:25 AM EDT Called [facility] left message on nurse line to call [...] to. meds that are susceptible are iv. half-way can recheck urine if still + then would need to get ID involved verbal instructions per Dr julieth Balderas APRN.SUPERVISOR LABORATORY ANIMAL FACILITY documented in this encounterK[facility]04-[facility]-2022 Miscellaneous Notes* Telephone Encounter - Summer Turcios RN - 09/09/2021 2:50 PM EDT [place] from [facility] returned call to this RN. Reviewed [...] RN via confidential e-mail) Attempted to call [place] at [facility] to review above message, no answer. Left message on voicemailto return call. Summer Turcios RN * Telephone Encounter - Summer Turcios RN - 09/09/2021 1:58 PM EDT [place], nursing staff development coordinator at [facility] called stated, "one of patient's lap [...] e-mail). Summer Turcios RN documented in this encounterK[facility]04-05-2022 NoteHNO ID: [id number] Author: Sam Naidu DO Service: Gynecology Oncology [...] Date 09/07/21 0700 - 09/08/21 0659 Shift 4693-5583 5107-8838 0362-3245 24 Hour Total PO 360 360 PO 360 360 IV 9230 620 6320 Volume (mL) (ceFAZolin 3 g in D5W 100 mL (ANCEF)) 100 100 Volume (mL) (NaCl 0.9% iv infusion) 500 500 Volume (mL) (lactated ringers iv infusion) 1300 1300 Volume (mL) (lactated ringers iv infusion) 300 300 Shift Total 8130 041 9660 Urine 1000 1000 Void (ml) 1000 1000 [...] acting) (HumaLOG KWIKPEN) SUBCUTANEOUS w MEALS Rowan Lines DO - clonazePAM 0.5 mg tab(s) (KlonoPIN) 0.5 mg ORAL TID PRN Sam Naidu DO 0.5 mg at 09/07/212103 - lamoTRIgine 100 mg tab(s) (LaMICtal) 100 mg ORAL DAILY Sam Naidu, DO - sodium chloride 0.9 % (flush) 2-10 mL (BD POSIFLUSH) 2-10 mL INTRAVENOUS q 12 H Sam Naidu, DO 10 mL at 09/07/21 163 - polyethylene glycol 3350 17 g packet (MIRALAX, GLYCOLAX) 17 g ORAL DAILY Sam Nadiu, DO 17 g at 09/07/21 1630 - [...] 1545 VTE RISK CATEGORY: SURGICAL HIGH RISK ([place]) Active VTE Medication Orders: Anticoagulant AND Antiplatelet Medications (From admission, onward) Start Dose Route Frequency Last Action Ordered Stop 09/08/21 0900 enoxaparin 40 mg injection (LOVENOX) (Surgical Risk Categories) 40 mg SUBCUTANEOUS EVERY 24 HOURS Ordered 09/07/21 1542 -- Active VTE Prophylaxis Orders: 09/07/21 154 PNEUMATIC COMPRESSION STOCKINGS ([place]) 09/07/21 154 ACTIVITY - MOBILIZE PATIENT ([place], [place]) VTE Prophylaxis: VTE prophylaxis appropriate Assessment/Plan Vida Nina is a 70 year old year old female POD#1 s/p EUA, TLH-BSO for endometrial cancer #Postoperative care - VSSAF - VTE (more content not included)...[facility]04-04-2022 Note HNO ID: [id number] Author: Hieu Raymond APRN.VEGETABLE II FARMWORKER Service: Anesthesiology Author Type: Nurse Store Standards Associate Type: Anesthesia Procedure Notes Filed: 09/07/2021 9:28 AM Note Text: ANESTHESIOLOGY PROCEDURE NOTE Airway General Information Procedure Start Time/Medication Administration: 09/07/2021 8:29 AM Patient location during procedure: OR Timeout Performed Pre-procedure: timeout performed Consent Obtained: Yes Patient identity confirmed: arm band Staffing VEGETABLE II FARMWORKER: Hieu Raymond APRN.VEGETABLE II FARMWORKER Performed by: VEGETABLE II FARMWORKER Indications and Patient Condition Preoxygenated: yes Patient position: sniffing, ramp and reverse Trendelenburg Manual In-Line Stabilization: No Difficult Mask: No Indications for airway management: anesthesia anesthesia circuit Method: modified rapid sequence Cricoid Pressure: Yes Airway Accessory: oral airway Final Airway Details Final airway type: endotracheal airway Final Endotracheal Airway: ETT Cuffed: yes Successful intubation technique: video laryngoscopy Devices used: Contorion Endotracheal tube insertion site: oral Blade: Osman [...] intubation: no Difficult airway SIGNATURE: Hieu Raymond APRN.CRNA PATIENT NAME: Vida Nina DATE: September 07, 2021 TIME: 9:25 AM CSN: [id number] [facility] Instructions * Patient Instructions* Naila Barrientos APRN.SUPERVISOR LABORATORY ANIMAL FACILITY - 09/01/2021 3:11 PM EDT PATIENT PREOPERATIVE INSTRUCTIONS Your surgeon has scheduled for your procedure at this surgery center: Dr. Cuevas has scheduled you for your procedure at this surgery center [facility]: [phone], [address] [address] Enter the hospital through the main entrance and proceed directly to the Surgery Welcome Center. Asyou enter the Surgery Welcome Center and sign in with the receptionist secretary, we may ask for your photo ID [...] If you are having surgery at the [facility], please bring your glucometer Pain Medications: [...] surgery. - YOU MUST HAVE A RESPONSIBLE SPA THERAPIST TAKE YOU HOME. A AUTOMOTIVE SALES MANAGER, CAB OR UBER SPA THERAPIST CANNOT BE MADEA RESPONSIBLE SPA THERAPIST. - We recommend that a responsible person [...] COVID-19 positive. If visitors do not follow [facility] masking guidelines, caregivers can ask them to leave [facility] and restrict their visitation privileges. For support, contact Elizabeth at [phone] or [email or web address]. The visitor will be allowed to stay [...] and will then instruct the visitor for pickers material handlers directions Visitors who have tested positive for [...] Faster: A Guide of Mind Body Techniques ([place];[employer]: Fourth Edition) 2011 Naila Barrientos APRN.CNP 09/01/21 documented in this encounter[facility] History and physical note * Naila Barrientos [...] with Dr. Cuevas. Surgery will be at [facility] Scheduled as an TBA Have you been in contact with someone with known coronavirus/Covid 19? no Have you had surgery or pre testing at [facility] in the past 3 years? [...] Negative for: AICD/PPM, chest pain, CHF, recent SD and open heart surgery. GI: Positive for: abdominal pain Negative for: nausea and vomiting. : No history of dysuria, frequency or incontinence, stones or chronic kidney disease. No difficulty urinating, nocturia > 1 time per night or hematuria. TEST BORE HELPER: S/p menopause Endocrine: Positive for: diabetes mellitus. [...] or any previous visit (from the past [id number] hour(s)). Assessment No problem-specific Assessment & Plan [...] slightly elevated. Treated with oral medications. No gut dropper Hyperlipidemia- treated with a statin Pertinent cardiac [...] Initiated: Ordered by surgeon- none Ordered by pilot captain - cbc, T*S, con abo Instructions Given to Patient: Instructions located in the after visit summary. Patient given verbal and written preop instructions and voices comprehension and compliance. SIGNATURE: Naila Barrientos APRN.CNP PATIENT NAME: Vida Nina DATE: September 01, 2021 TIME: 2:53 PM PAGER/CONTACT #: documented in this encounterK[facility]03-18-2022 NoteHNO ID: [id number] Author: Jennifer Cuevas MD Service: ? Author Type: Physician Type: Progress Notes Filed: 08/26/2021 1:21 PM Note Text: Gynecologic Oncology [facility] Consult Date of service: 08/21/2021 PCP: [...] many years since she has seen a ladies underwear operator, maybe > 10 years. Reports normal [...] SAB0 IAB0 Ectopic0 Multiple0 Live Births0 ? Washer Operator History ? 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 Age at Menarche: ? Age at First : ? Age at Menopause: ? Washer Operator History Comments: ? Sexual Activity: Not [...] 1 capsule by mouth (more content not included)...[facility] 07-29-2021 NoteHNO ID: [id number] Author: Krunal Erazo MD Service: ? Author [...] many years since she has seen a ladies underwear operator, maybe > 10 years. Reports normal [...] L2 SAB0 IAB0 Ectopic0 Multiple0 Live Births0 Washer Operator History LMP: Postmenopausal Age at Menarche: Age at First : Age at Menopause: Washer Operator History Comments: Sexual Activity: Not Asked; [...] external genitalia atrophic, normal Bartholin's glands, urethra, [place]'s glands, no vulvar lesions, no cervical lesions, good vaginal support, normal appearing perineal body and perianal region, scant (more content not included)...[facility] Pre-op testing- Primary Preoperative examination, unspecified Endometrial cancer (HCC) Malignant neoplasm of corpus uteri, except isthmus Mixed hyperlipidemia 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, with long-term current use of insulin (HCC) Primary hypertension Unspecified essential hypertension Endometrial cancer (HCC) Malignant neoplasm of corpus uteri, except isthmus [facility] Diagnosis Onset Date Resolution Status Uterine mass acute Endometrial adenocarcinoma a cute Debility acute Pulmonary embolism acute [facility] Work Phone: Evaluation note* Diagnosis Onset Date Resolution Status Uterine mass acute Endometrial adenocarcinoma a cute Debility acute Pulmonary embolism acute Debility acute Elevated troponin I level [place] Lactic acidosis acute DM2 (diabetes mellitus, type 2) chronic [facility] Work Phone: Evaluation note* Diagnosis Endometrial cancer (HCC)- Primary Malignant neoplasm of corpus uteri, except isthmus [facility] Diagnosis Onset Date Resolution Status Debility acute Pulmonary embolism acute Debility acute DM2 (diabetes mellitus, type 2) chronic Elevated troponin I level re solved Lactic acidosis resolved [facility] Work Phone: Evaluation noteNo assessment information available [facility] Work Phone: Evaluation note* Diagnosis Onset Date Resolution Status Debility acute Endometrial adenocarcinoma a cute Former smoker acute History of seizures acute Pulmonary embolism acute Vitamin D deficiency acute Bipolar disorder chronic DM2 (diabetes mellitus, type 2) chronic Type 1 diabetes mellitus chr onic [facility] Work Phone: Evaluation note* Diagnosis Onset Date Resolution Status Debility acute Vitamin D deficiency acute Bipolar disorder chronic Depression chronic DM2 (diabetes mellitus, type 2) chronic [facility] Work Phone[facility] Work Phone: Hospital Discharge instructions Additional Instructions [...] care physician for further outpatient evaluation and management.[facility] Work Phone: Summary Purpose Family History [...] FoundDocuments on File Type Date Recorded Patient Awning Finisher Expl anation Advance Directive(s) 09/07/2021 6:14 AM Advance Directive Response Recorded Date/ Time Living Will No September 20, 2021 7:30am Power of Boom Pump Operator No September 20 7:30am Advance Directive Response Recorded Date/ Time Living Will No September 20, 2021 12:38pm Power of Boom Pump Operator No September 20 12:38pm Advance Directive Response Recorded Date/ Time Name of Medical Power of Boom Pump Operator TODD November 22, 2021 1:03pm Living Will Yes November 22, 2021 1:03pm Power of Boom Pump Operator Yes November 22 1:03pm Advance Directive Response Recorded Date/ Time Name of Medical Power of Boom Pump Operator Todd Nina November 22, 2021 5:55pm Living Will No November 22, 2021 5:55pm Power of Boom Pump Operator Yes November 22 5:55pm Advance Directive Response Recorded Date/ Time Living Will No April 13 10:27am Power of Boom Pump Operator Yes April 13, 2022 10:27am Advance Directive Response Recorded Date/ Time Living Will No April 13 11:27am Power of Boom Pump Operator Yes April 13, 2022 11:27am Advance Directive Response Recorded Date/ Time Living Will No January 09, 2023 5:18pm Power of Boom Pump Operator No January 09 5:18pm Advance Directive Response Recorded Date/ Time Living Will No January 09, 2023 4:18pm Power of Boom Pump Operator No January 09 4:18pm Advance Directive Response Recorded Date/ Time Do you have a Healthcare Power of Boom Pump Operator? Yes October 09, 2024 5:45pm Advance Directive Response Recorded Date/ Time Do you have a Healthcare Power of Boom Pump Operator? No October 09, 2024 11:07pm Health Concerns Infection Onset Date Last Indicated Resolved Time COVID-19 Rule-Out 09/07/2021 09/07/2021 Chief Complaint and Reason for Visit Chief Complaint RETIREMENT LABOWRK RETIREMENT LABWORK RETIREMENT LABWORK VAGINAL BLEEDING NEW-CERVICAL MASS MED ONC CERVICAL MASS 2WKS NO LABS REVIEW CT/PATH FRO [facility] PE, FAILURE TO THRIVE PE, FAILURE TO THRIVE Reason for Visit Uterine mass Endometrial adenocarcinoma Debility Pulmonary embolism Chief Complaint RETIREMENT LABOWRK RETIREMENT LABWORK RETIREMENT LABWORK VAGINAL BLEEDING NEW-CERVICAL MASS MED ONC CERVICAL MASS 2WKS NO LABS REVIEW CT/PATH FRO CCF-BARBOZA PE, FAILURE TO THRIVE PE, FAILURE TO THRIVE PE, FAILURE TO THRIVE PE, FAILURE TO THRIVE Reason for Visit Uterine mass Endometrial adenocarcinoma Debility Pulmonary embolism Chief Complaint RETIREMENT LABWORK RETIREMENT LABWORK VAGINAL BLEEDING NEW-CERVICAL MASS MED ONC CERVICAL MASS 2WKS NO LABS REVIEW CT/PATH FRO [facility]-BARBOZA RETIREMENT LABWORK PE, FAILURE TO THRIVE PE, FAILURE TO THRIVE PE, FAILURE TO THRIVE PE, FAILURE TO THRIVE RETIREMENT LABWORK Reason for Visit Uterine mass Endometrial adenocarcinoma Debility Pulmonary embolism Chief Complaint VAGINAL BLEEDING NEW-CERVICAL MASS MED ONC CERVICAL MASS 2WKS NO LABS REVIEW CT/PATH FRO [facility]-BARBOZA RETIREMENT LABWORK PE, FAILURE TO THRIVE PE, FAILURE TO THRIVE PE, FAILURE TO THRIVE PE, FAILURE TO THRIVE RETIREMENT LABWORK RETIREMENT LABWORK Reason for Visit Uterine mass Endometrial adenocarcinoma Debility Pulmonary embolism Chief Complaint VAGINAL BLEEDING NEW-CERVICAL MASS MED ONC CERVICAL MASS 2WKS NO LABS REVIEW CT/PATH FRO [facility]-BARBOZA RETIREMENT LABWORK PE, FAILURE TO THRIVE PE, FAILURE TO THRIVE PE, FAILURE TO THRIVE PE, FAILURE TO THRIVE RETIREMENT LABWORK RETIREMENT LABWORK DEBILITY/KAYLA Reason for Visit Uterine mass Endometrial adenocarcinoma Debility Pulmonary embolism Chief Complaint NEW-CERVICAL MASS MED ONC CERVICAL MASS 2WKS NO LABS REVIEW CT/PATH FRO [facility]-BARBOZA RETIREMENT LABWORK PE, FAILURE TO THRIVE PE, FAILURE TO THRIVE PE, FAILURE TO THRIVE PE, FAILURE TO THRIVE RETIREMENT LABWORK RETIREMENT LABWORK DEBILITY/KAYLA DEBILITY/KAYLA DEBILITY/KAYLA DEBILITY/KAYAL Reason for Visit Uterine mass Endometrial adenocarcinoma Debility Pulmonary embolism Debility Elevated troponin I level Lactic acidosis DM2 (diabetes mellitus, type 2) Chief Complaint RETIREMENT LABWORK PE, FAILURE TO THRIVE PE, FAILURE TO THRIVE PE, FAILURE TO THRIVE PE, FAILURE TO THRIVE RETIREMENT LABWORK RETIREMENT LABWORK DEBILITY/KAYLA DEBILITY/KAYLA DEBILITY/KAYLA DEBILITY/KAYLA DEBILITY/KAYLA RETIREMENT LABWORK RETIREMENT LABWORK RETIREMENT LAB WORK Reason for Visit Debility Pulmonary embolism Debility DM2 (diabetes mellitus, type 2) Elevated troponin I level Lactic acidosis Chief Complaint RETIREMENT LABWORK RETIREMENT LAB WORK Chief Complaint RETIREMENT LAB WOR K 1 Y FU RETIREMENT LAB WORK Reason for Visit Debility Endometrial adenocarcinoma Former smoker History of seizures Pulmonary embolism Vitamin D deficiency Bipolar disorder DM2 (diabetes mellitus, type 2) Type 1 diabetes mellitus Chief Complaint RETIREMENT LAB WOR K 1 Y FU RETIREMENT LAB WORK RETIREMENT LAB WORK Reason for Visit Debility Endometrial adenocarcinoma Former smoker History of seizures Pulmonary embolism Vitamin D deficiency Bipolar disorder DM2 (diabetes mellitus, type 2) Type 1 diabetes mellitus Chief Complaint 1 Y FU RETIREMENT LAB WORK RETIREMENT LAB WORK RETIREMENT LABWORK Reason for Visit Debility Endometrial adenocarcinoma Former smoker History of seizures Pulmonary embolism Vitamin D deficiency Bipolar disorder DM2 (diabetes mellitus, type 2) Type 1 diabetes mellitus Chief Complaint RETIREMENT LAB WOR K 6 M FU gen illness Reason for Visit Debility Vitamin D deficiency Bipolar disorder Depression DM2 (diabetes mellitus, type 2) Chief Complaint RETIREMENT LABWORK RETIREMENT LABWORK Chief Complaint Admit Date LT Ankle Pain July 04, 2024 1 2:57pm RETIREMENT LAB WORK July 09, 2024 4:00am ACUTE [...] 1 2:57pm Acute cystitis with hematuria October 09, 2 025 9:56pm Bipolar 1 disorder October [...] Ankle Pain July 04, 2024 1 2:57pm RETIREMENT LAB WORK July 09, 2024 4:00am ACUTE CYSTITIS, NEUROPATHIC PAIN OF LEFT FOOT AND October 09, 2024 9:56pm ACUTE CYSTITIS, NEUROPATHIC PAIN OF LEFT FOOT AND October 10, 2024 7:39am Additional Source Comments INFORMATION SOURCE (unrecogn ized section and content) DATE CREATED AUTHOR 08/31/2021 [facility] DATE CREATED AUTHOR AUTHOR'S ORGANIZ ATION 12/01/2021 [facility] DATE CREATED AUTHOR AUTHOR'S ORGANIZ ATION 11/27/2024 [facility] Source Comments (unrecognize d section and content) In the event this informatio n is protected by the Federal Confidentiality of Alcohol and Drug Abuse Patient Records regulations: The Federal rules restrict any use of the information to criminally investigate or prosecute any alcohol or drug abuse patient.[facility] the event this information is protected by the Federal Confidentiality of Alcohol and Drug Abuse Patient Records regulations: The Federal rules restrict any use of the information to criminally investigate or prosecute any alcohol or drug abuse patient.[facility] the event this information is protected by the Federal Confidentiality of Alcohol and Drug Abuse Patient Records regulations: The Federal rules restrict any use of the information to criminally investigate or prosecute any alcohol or drug abuse patient.[facility] the event this information is protected by the Federal Confidentiality of Alcohol and Drug Abuse Patient Records regulations: The Federal rules restrict any use of the information to criminally investigate or prosecute any alcohol or drug abuse patient.[facility] the event this information is protected by the Federal Confidentiality of Alcohol and Drug Abuse Patient Records regulations: The Federal rules restrict any use of the information to criminally investigate or prosecute any alcohol or drug abuse patient.[facility] Reason for Visit (unrecogniz ed section and [...] Shayna Malhotra MD Primary Care Provider Active [facility] Attending Provider Acti ve Team Status: [...] BE BASED ON THE PRIMARY CLINICAL RECORDS. [employer] provides no warranty or guarantee of the accuracy or completeness of information in this document.
[2024-12-04 11:33] LABS: Hematocrit 33.8 % (37-47); Hemoglobin 11.2 g/dL (12.0-15.0); Mean Corp Hgb Conc 33.1 g/dL (32-36); Mean Corpuscular Volume 88.5 fL (81-99); Mean Platelet Vol. 11.2 fl (6.2-12.0); Platelet Count 119 K/mm3 (150-450); RBC Distribution Width CV 16.2 % (11.6-14.6); RBC Distribution Width SD 52.9 fl (35.1-43.9); Red Blood Count 3.82 M/mm3 (4.2-5.4); White Blood Count 3.1 K/mm3 (4.4-11.0)
[2024-12-04 11:53] LABS: Magnesium 2.3 mg/dL (1.5-2.2)
[2024-12-04 11:54] LABS: Anion Gap 10 (5-15); BUN 25 mg/dL (4-19); BUN/Creat Ratio 22.2 RATIO (10-20); Calcium,Total 9.4 mg/dL (7.6-11.0); Carbon Dioxide 23.5 mmol/L (21.0-32.0); Chloride 103 mmol/L (98-108); Glucose 83 mg/dL (70-99); Potassium 5.1 mmol/L (3.3-5.1)
== END ==
LOC: OLS.SW 04:00
PROVIDERS: PCP Internal Medicine; Referring Provider Internal Medicine; Visit Provider Internal Medicine
DX: E11.9 Type 2 diabetes mellitus without complications (principal)
CPT/HCPCS: 36415; 80048; 83735; 85027

== ENCOUNTER → 2025-01-21 05:00 | Outpatient (REF) | payer MEDICARE, MEDICAID, SELFPAY ==
[2025-01-21 08:57] LABS: Pro- Brain NATRIURETIC PEPTIDE 260 pg/mL (<=900)
[2025-01-21 09:56] LABS: Anion Gap 13 (5-15); BUN 24 mg/dL (4-19); BUN/Creat Ratio 23.4 RATIO (10-20); Calcium,Total 9.2 mg/dL (7.6-11.0); Carbon Dioxide 20.8 mmol/L (21.0-32.0); Chloride 103 mmol/L (98-108); Glucose 164 mg/dL (70-99); Potassium 4.8 mmol/L (3.3-5.1)
[2025-01-23 09:51] LABS: Magnesium 2.1 mg/dL (1.5-2.2)
== END ==
LOC: OLS.SWAL 05:00
PROVIDERS: PCP Internal Medicine; Visit Provider Internal Medicine
DX: E11.9 Type 2 diabetes mellitus without complications (principal); E55.9 Vitamin D deficiency, unspecified; N17.9 Acute kidney failure, unspecified; I10 Essential (primary) hypertension
CPT/HCPCS: 36415; 80048; 83735; 83880

== ENCOUNTER → 2025-03-20 05:00 | Outpatient (REF) | payer MEDICARE, MEDICAID, SELFPAY ==
[2025-03-20 09:18] LABS: Hematocrit 35.8 % (37-47); Hemoglobin 11.8 g/dL (12.0-15.0); Mean Corp Hgb Conc 33.0 g/dL (32-36); Mean Corpuscular Volume 90.6 fL (81-99); Mean Platelet Vol. 11.3 fl (6.2-12.0); Platelet Count 103 K/mm3 (150-450); RBC Distribution Width CV 14.8 % (11.6-14.6); RBC Distribution Width SD 49.4 fl (35.1-43.9); Red Blood Count 3.95 M/mm3 (4.2-5.4); White Blood Count 3.7 K/mm3 (4.4-11.0)
[2025-03-20 09:35] LABS: Anion Gap 13 (5-15); BUN 24 mg/dL (4-19); BUN/Creat Ratio 20.6 RATIO (10-20); Calcium,Total 9.7 mg/dL (7.6-11.0); Carbon Dioxide 21.4 mmol/L (21.0-32.0); Chloride 103 mmol/L (98-108); Glucose 224 mg/dL (70-99); Potassium 4.7 mmol/L (3.3-5.1); Pro- Brain NATRIURETIC PEPTIDE 133 pg/mL (<=900)
== END ==
LOC: OLS.SWAL 05:00
PROVIDERS: PCP Internal Medicine; Visit Provider Internal Medicine
DX: I50.9 Heart failure, unspecified (principal); J44.9 Chronic obstructive pulmonary disease, unspecified; E11.9 Type 2 diabetes mellitus without complications; E78.5 Hyperlipidemia, unspecified; R50.9 Fever, unspecified; I82.409 Acute embolism and thrombosis of unspecified deep veins of unspecified lower extremity
CPT/HCPCS: 36415; 80048; 83036; 83880; 85027

== ENCOUNTER → 2025-04-01 05:00 | Outpatient (REF) | payer MEDICARE, MEDICAID, SELFPAY ==
--- OUTSIDE RECORDS SUMMARY | 2025-04-01 04:11 | XMS RPT_ITS | CCD ---
Author Organization [facility] Care Team Providers Care Roller Print Tender Name Role Phone Sena Cox NP Unavailable Johnny Richardson Unavailable Unavailable Unavailable [facility] Shayna Malhotra Primary Care Provider Dr. Shayna Malhotra Referring Provider [phone] Saad Villagomez Attending Provider Dr. Tyler [...] Care Provider Dr. Tanner Rodriguez Attending Provider [phone] Marjorie Gutiérrez Referring Provider Dr. Shayna Malhotra Primary Care Provider Dr. Shayna Malhotra Attending Provider Dr. Shayna Malhotra Primary Care Provider Dr. Shayna Malhotra Attending Provider Dr. Shayna Malhotra Primary Care Provider Dr. Shayna Malhotra Attending Provider Marya LEAL, Dr. Corral Primary Care Provider [phone] Marya LEAL, Dr. Corral Attending Provider Marya [...] Camilo LEAL, Dr. Santillan Other Provider Marya LEAL, Dr. Corral Primary Care Physician [phone] Genoveva LEAL, Dr. Servin Attending Physician Unavail able Genoveva LEAL, Dr. Servin Referring Provider Unavaila ble Marya, Shayna Primary Care Unavailable Shayna Malhotra Attending Unavailable Missael Hernandez Consulting Unavailable Marya, Shayna Primary Care Unavailable Missael Hernandez Admitting Unavailable Tyrell Page Attending Unavailable Tyrell Page Consulting Unavailable Marya, Shayna Primary Care Unavailable Malathi Hyde Attending Unavailable Missael Hernandez Attending Unavailable Llee, Shea Attending Unavailable Marya, Shayna Primary Care Unavailable Tyrell Page Referring Unavailable Marya, Shayna Primary Care Unavailable Marya, Shayna Attending Unavailable Marya OLS, Shayna Referring Unavailable Marya OLS Shayna Attending Unavailable Marya, Shayna Primary Care Unavailable Marya OLS, Shayna Attending Unavailable Marya, Shayna Primary Care Unavailable Marya, Shayna Primary Care Unavailable Malathi Hyde Attending Unavailable Gudla OLS, Malathi Attending Unavailable Marya, Shayna Primary Care Unavailable Missael Hernandez Consulting Unavailable Missael Hernandez Admitting Unavailable Marya, Shayna Primary Care Unavailable Tyrell Page Attending Unavailable Marya OLS, Shayna Referring Unavailable Marya [...] Shayna Primary Care Unavailable Gudla OLS, Malathi Referring Unavailable Gudla OLS, Malathi Attending Unavailable Marya, Shayna Primary Care Unavailable Gudla OLS, Malathi Attending Unavailable Marya, Shayna Primary Care Unavailable Marya, Shayna Attending Unavailable Allergies Allergy Classification Reported Allergen(s) Allergy Type Date of Onset Reaction(s) Facility (20 sources) Ciprofloxacin Drug Allergy 08-12-19 06 Shortness of Breath, Anaphylaxis [facility] (20 sources) Contrast media; Translations: [red dye] Drug Allergy 02-10-20 16 [facility] (5 sources) Fish Drug Allergy 02-10-20 16 [facility] (20 sources) metFORMIN Drug Allergy 11-21-19 17 Diarrhea, GI Upset, Vomiting [facility] (20 sources) paliperidone Drug Allergy 11-21-19 17 Rash [facility] (14 sources) Penicillins Drug Allergy 07-15-19 06 [facility] (20 sources) Shellfish; Translations: [shellfish derived] Drug Intolerance 02-29-20 19 Diarrhea, Vomiting [facility] (15 sources) Sulfonamides (Antibiotic) Drug Allergy 07-15-19 06 Rash [facility] (15 sources) Iodinated Contrast Media Drug Allergy 02-29-20 19 Rash [facility] (4 sources) Mold Extract Drug Allergy 09-08-19 [facility] (20 sources) Ciprofloxacin; Translations: [ciprofloxacin HCl] Drug Allergy 08-12-19 22 Anaphylaxis [facility] (19 sources) red (food color); Translations: [red (food color)] Allergy to substance 09-21-19 Hives [facility] (1 source) Penicillins Drug Allergy 07-15-19 Rash [facility] (9 sources) Penicillins Allergy to substance 11-23-19 RASH AND ITCHING [facility] (9 sources) Sulfonamides (Antibiotic) Allergy to substance 11-23-19 [facility] (9 sources) Triiodobenzoic Acids Allergy to substance 11-23-19 Rash [facility] (1 source) Ciprofloxacin Drug Allergy 10-10-19 [facility] (1 source) metFORMIN Drug Allergy 10-10-19 [facility] (1 source) paliperidone Drug Allergy 10-10-19 [facility] (1 source) Penicillins Drug allergy (disorder) 10-10-19 [facility] (1 source) Sulfonamides (Antibiotic) Drug allergy (disorder) 10-10-19 [facility] (1 source) Iodinated Contrast Media Drug allergy (disorder) 10-10-19 [facility] Medications Current Medications Medication Drug Class(es) Dates Sig (Normalized) Sig (Original) acetaminophen 325 mg oral tablet (20 sources) Start: 09-07-2021 End: 09-21-2021 take 2 tablets by mouth every six hours acetaminophen (TYLENOL) 325 mg tablet Take 2 tablets by mouth every 6 hours for 14 days. 112 tablet 0 09/07/2021 09/21/2021 Active Start: 07-30-2021 take 1 tablet by [facility] every four hours as needed Acetaminophen (Tylenol) 325 mg tablet Active 325 MG PO EVERY 4 HOURS NEEDED July 30, 2021 4:00pm Start: 07-30-2021 take 1 tablet by mouth once Ac etaminophen (Tylenol) 325 mg tablet Active 325 MG PO ONCE July 30, 2021 4:00pm Start: 07-30-2021 take 2 tablets by mo [facility] every four hours as needed for pain Comment on above: Take 650 mg by mouth every 4 hours as needed. Take 2 tablets by mo [facility] every 6 hours for 14 days. aspirin 81 mg chewable tablet (8 sources) Platelet Aggregation Inhibitor, Nonsteroidal Anti-inflammatory Drug Start: 05-06-2022 take 1 tablet by mouth once daily atorvastatin 40 mg oral tablet (20 sources) HMG-CoA Reductase Inhibitor Start: 11-24-2022 take 1 tablet by mouth once daily in the evening Start: 08-31-2017 End: 11-24-2021 take 1 tablet by mouth at bedtime Atorvastatin 40 mg tablet Discontinued 40 mg PO AT BEDTIME September 20, 2021 8:43am November 24, 2021 12:12pm Comment on above: Take 40 mg by mouth daily at bedtime. Blood-Glucose Meter (Freestyle Lite Meter) kit (20 sources) Start: 11-23-2021 Blood-Glucose Meter (Freestyle Lite Meter) kit Active 0 November 23, 2021 8:53am diabetes As directed, check blood glucose daily for [...] Lite Meter) kit Active 0 .ROUTE .MEDSUPPLY 1 March 01, 2019 2:00pm As directed, check blood glucose daily for type 2 DM Start: 03-01-2019 End: 11-23-2021 Blood-Glucose Meter (Freesty le Lite Meter) kit Discontinued 0 .ROUTE .MEDSUPPLY 1 0 March 01, 2019 12:00am November 23, 2021 8:53am Type 2 diabetes mellitus with hyperglycemia As directed, check blood glucose daily for type 2 DM Start: 03-01-2019 End: 11-23-2021 Blood-Glucose Meter (Freesty le Lite Meter) kit Discontinued 0 .ROUTE .MEDSUPPLY 1 February 28, 2019 11:00pm November 23, 2021 7:53am As directed, check blood glucose daily for type 2 DM Start: 03-01-2019 End: 11-23-2021 Blood-Glucose Meter (Freesty le Lite Meter) kit Discontinued 0 .ROUTE .MEDSUPPLY March 01, 2019 12:00am November 23, 2021 8:53am As directed, check blood glucose daily for type 2 DM Start: 03-01-2019 Blood-Glucose Meter (Freestyle Lite Meter) kit Active 0 .ROUTE .MEDSUPPLY 1 March 01, 2019 12:00am As directed, check blood glucose daily for type 2 DM Start: 09-14-2017 Blood-Glucose Meter (Freestyle Lite Meter) kit Active 0 .ROUTE .MEDSUPPLY 1 September 14, 2017 9:28am use to check BG 4-5 x qd Start: 09-14-2017 End: 09-14-2017 Blood-Glucose Meter (Freesty le Lite Meter) kit Discontinued 0 .ROUTE .MEDSUPPLY 1 September 14, 2017 8:21am September 14, 2017 9:29am use to check BG 4-5 x qd Start: 09-14-2017 End: 09-14-2017 Blood-Glucose Meter (Freesty le Lite Meter) kit Discontinued 0 .ROUTE .MEDSUPPLY 1 September 14, 2017 12:00am September 14, 2017 9:29am Type 2 diabetes mellitus without complications use to check BG 4-5 x qd Start: 09-14-2017 End: 09-14-2017 Blood-Glucose Meter (Freesty le Lite Meter) kit Discontinued 0 .ROUTE .MEDSUPPLY September 13, 2017 11:00pm September 14, 2017 8:29am use to check BG 4-5 x qd Start: 09-14-2017 End: 09-14-2017 Blood-Glucose Meter (Freesty le Lite Meter) kit Discontinued 0 .ROUTE .MEDSUPPLY September 14, 2017 12:00am September 14, 2017 9:29am use to check BG 4-5 x qd Dulaglutide (20 sources) GLP-1 Receptor Agonist Start: 11-24-2022 Start: 11-24-2022 Dulaglutide (T rulicity) 3 mg/0.5 [...] 22, 2021 6:35pm November 24, 2022 1:26pm diabetes Every Tuesday Comment on above: Inject 1.5 mg subcut aneously one time a week. empagliflozin 10 mg oral tablet (6 sources) Sodium-Glucose Cotransporter 2 Inhibitor Start: 08-17-2022 take 1 tablet by mouth once daily ergocalciferol 1.25 mg oral capsule (20 sources) Provitamin D2 Compound Start: 09-20-2021 Start: 09-20-2021 take 75444 [IU] by m outh every other week Ergocalciferol (Vitamin D2) Active 07252 UNIT PO Q1September 19, 2021 11:00pm Take every 2 weeks on Mondays Start: 09-08-2017 End: 03-21-2020 Ergocalciferol (Vitamin D2) 50,000 unit capsule Discontinued 94667 U PO EVERY MONTH 10 September 08, 2017 12:00am March 21, 2020 2:54pm Start: 11-15-2014 End: 09-01-2021 take 1 capsule by mouth every week ergocalciferol, vitamin D2, (VITAMIN D) 50,000 unit capsule Take 1 capsule by mouth once each week. 4 capsule 12 11/15/2014 09/01/2021 Discontinued Comment on above: Take 1 capsule by mo ut once each week. glucose 0.4 mg/mg oral gel (11 sources) Start: 06-25-2020 Dextrose (Glucose Gel) 40 % gel Active 10 GM PO Q15M June 25, 2020 2:20pm until symptoms of low blood sugar are controlled dextrose (GLUCOS E GEL ORAL) Take by mouth. 0 Active Comment on above: Take by mouth. guaiFENesin 20 mg/ml oral solution (20 sources) Start: 2 take 200 mg by mouth every four hours as needed for cough Comment on above: Take 200 mg by [...] tablet by lucio th every 6 hours for 14 days. 3 ml insulin glargine 100 unt/ml pen injector (20 sources) Insulin Analogue Start: Start: 03-21-2020 End: 11-24-2021 Insulin Glargine (Lantus Anastasiia ostar U-100 Insulin) 100 unit/mL (3 mL) insulin pen Discontinued 65 U SC AT BEDTIME November 22, 2021 6:35pm November 24, 2021 10:49am diabetes Hold if glucose less than 130 mg/dl Start: 09-12-2017 End: 03-21-2020 Insulin Glargine (Lantus Anastasiia ostar U-100 Insulin) 100 unit/mL (3 mL) insulin pen Discontinued 18 U SC AT BEDTIME 6 11 September 12, 2017 1:53pm March 21, 2020 2:57pm Type 2 diabetes mellitus without complications Start: 08-23-2017 End: 09-12-2017 Insulin Glargine U-300 Conc 300 UNIT/ML insulin pen Discontinued 20 U SC AT BEDTIME August 23, 2017 10:57am September 12, 2017 1:31pm Start: 10-28-2016 End: 08-23-2017 inject 18 [IU] by subcutaneous injection at bedtime Insulin Glargine U-300 Conc 300 UNIT/ML insulin pen Discontinued 18 U SQ AT BEDTIME October 28, 2016 12:00am August 23, 2017 10:59am blood sugar >150 Start: 08-25-2016 End: 08-26-2016 inject 15 [IU] by subcutaneous injection at bedtime Insulin Glargine U-300 Conc (Toujeo Solostar) 300 UNIT/ML Ml Discontinued 15 U SQ AT BEDTIME 1 0 August 25, 2016 12:00am August 26, 2016 9:59am insulin glargine (LANTUS SOLOSTAR U-100 INSULIN) 100 unit/mL (3 mL) Inject 65 Units subcutaneously daily at bedtime. 0 Active TOUJEO SOLOSTAR 300 UNIT/ML SOPN Use 18 units daily. INSULIN GLARGINE [id number] Sena Cox PEDIATRIC NEUROLOGIST Comment on above: Inject 65 Units subc utaneously daily at bedtime. 3 ml insulin lispro 100 unt/ml pen injector (20 sources) Insulin Analog Start: 09-22-2021 Insulin Lispro (Humalog Kwikpen Insulin) 100 unit/mL insulin pen Active 16 UNIT SC THREE TIMES A DAY 0 September 22, 2021 9:07am with meals Hold if glucose less than 130 mg/dl Start: 09-22-2021 End: 11-22-2021 Start: 09-22-2021 End: 11-22-2021 Insulin Lispro (Humalog [...] 25, 2020 2:21pm September 22, 2021 9:07am dm with meals Start: 06-15-2019 End: 06-25-2020 Insulin [...] 50 Plus Probiotic) 4 billion cell capsule (19 sources) Start: take 4 capsules by mouth once daily Lactobacillus Combination No.9 (Adult 50 Plus Probiotic) 4 billion cell capsule Active 4000 MMU CELLS PO DAILY June 25, 2020 2:19pm administer with a meal Start: 06-25-2020 take 4 capsules by m outh once daily Start: 06-25-2020 take 4 capsules by m [...] take 1 tablet by mouth once daily Start: 08-04-2017 End: 08-23-2017 take 1 tablet by mouth once daily Lisinopril 10 MG tablet Discontinued 10 mg PO DAILY 30 0 August 04, 2017 1:00am August 23, 2017 [...] Comment on above: Take 1 capsule by [facility] twice daily with meals for 10 doses. QUEtiapine 100 mg oral tablet (20 sources) Atypical Antipsychotic Start: take 3 tablets by mouth twice daily Start: 11-24-2021 take 300 mg by mouth twice daily Quetiapine Active 300 MG PO TWICE A DAY 0 November 23, 2021 11:00pm Start: 11-22-2021 End: 11-24-2021 take 1 tablet by mouth at bedtime Quetiapine Fumarate (Seroquel Xr) 300 MG Tab.Sr.24h Discontinued 600 mg PO AT BEDTIME November 22, 2021 6:35pm November 24, 2021 10:49am Check with primary doctor Start: 11-22-2021 End: 11-24-2021 take 1 tablet [...] Discontinued 600 mg PO AT BEDTIME 60 0 February 28, 2019 12:00am November 22, 2021 [...] Start: 02-28-2019 take 1 tablet by lucio at bedtime Quetiapine Fumarate (Seroquel Xr) 300 MG Tab.Sr.24h Active 600 MG PO AT BEDTIME 60 February 28, 2019 12:00am Start: 08-25-2016 End: 08-25-2016 take 1 tablet by mouth twice daily Quetiapine (Seroquel) 300 MG tablet Discontinued 300 mg PO TWICE A DAY 0 0 August 25, 2016 8:45am August 25, 2016 8:48am Start: 08-22-2016 End: 08-25-2016 take 2 tablets by mouth at bedtime Quetiapine (Seroquel) 300 MG tablet Discontinued 600 mg PO AT BEDTIME August 22, 2016 12:00am August 25, 2016 8:45am Start: 02-10-2016 take 2 tablets by mo ut once daily at bedtime QUEtiapine XR (SEROQUEL XR) 300 mg 24 hr tablet Take 2 tablets by mouth daily at bedtime. 60 tablet 0 02/10/2016 Active Comment on above: Take 2 tablets by mo ut daily at bedtime. triamcinolone acetonide 1 mg /ml topical cream (20 sources) Corticosteroid Start: 09-20-2021 Start: 07-30-2021 Triamcinolone Acetonide Active 1 APPLIC [...] 9:00am Aluminum-Magnesium Hydroxide 225-200 mg/5 mL suspension (3 sources) Start: 07-30-2021 End: 09-22-2021 take 1 [...] 5 mg PO TWICE A DAY 0 0 November 24, 2021 12:00am November 24, 2022 1:25pm Start: 09-22-2021 End: 11-24-2021 take 2 tablets by mouth twice daily in the evening, then take 1 tablet by mouth twice daily Apixaban (Eliquis) 5 mg tablet Discontinued 5 mg PO TWICE A DAY Taper: Start: September 20, 2021 10:00pm End: September 27, 2021 9:59pm Frequency: BID Days: 6 Hours: 0 Dose: 10 Start: September 27, 2021 10:00pm End: March 26, 2022 9:59pm Frequency: BID Days: 180 Hours: 0 Dose: 5 November 22, 2021 1:31pm November 24, 2021 10:50am PE 10 mg twice daily, last dose 09/27/2021 pm dose and then start 5 mg twice daily to continue for 6 months Please contact the information source for Taper Schedule details. azithromycin 500 mg oral tablet (5 sources) Macrolide Antimicrobial Start: 01-09-2023 End: 05-28-2024 take 1 tablet by mouth once daily Azithromycin 500 mg tablet Discontinued 500 mg PO DAILY 5 5 0 January 09, 2023 12:00am May 28, 2024 4:20pm cefadroxil 1000 mg oral tablet (19 sources) Cephalosporin Antibacterial Start: 08-04-2017 End: 08-23-2017 take 1 tablet by mouth once daily Cefadroxil 1 GM tablet Discontinued 1 g PO DAILY 7 0 August 04, 2017 1:00am August 23, 2017 10:26am cefdinir 300 mg oral capsule (12 sources) Cephalosporin Antibacterial Start: 11-24-2021 End: 11-24-2022 take 1 capsule by mouth twice daily Cefdinir 300 mg capsule Discontinued 300 mg PO TWICE A DAY 10 5 0 November 24, 2021 12:00am November 24, 2022 1:25pm cephalexin 500 mg oral capsule (19 sources) Cephalosporin Antibacterial Start: 02-28-2019 End: 03-21-2020 take 1 capsule by mouth every six hours Cephalexin 500 MG capsule Discontinued 500 mg PO EVERY 6 HOURS 40 0 February 28, 2019 12:00am March 21, 2020 [...] above: Take 1 capsule by mo uth once each week. Take 1 capsule by mo uth twice a week. (ONE CAPSULE) FOR VITAMIN D DEFICIENCY Take 1 capsule by mo uth once each week. (ONE CAPSULE) FOR VITAMIN D DEFICIENCY clonazePAM 0.5 mg oral tablet (20 sources) Benzodiazepine Start: 3 End: take 1 tablet by mouth every twelve hours as needed Clonazepam 0.5 mg tablet Discontinued 0.5 mg PO Q12H as needed for panic attack(s) 60 3 September 12, 2024 7:52am October 09, 2024 8:13pm Panic disorder [episodic paroxysmal anxiety] Start: 02-28-2019 End: 11-08-2022 take 1 tablet by mouth every eight hours as needed Clonazepam 0.5 mg tablet Discontinued 0.5 mg PO EVERY 8 HOURS NEEDED as needed for panic attack(s) 90 0 October 06, 2022 8:04am November 08, 2022 4:18pm Panic disorder [episodic paroxysmal anxiety] Start: 08-15-2014 End: 01-05-2018 take 1 tablet by mouth three times daily Clonazepam 0.5 MG tablet Discontinued 0.5 mg PO THREE TIMES A DAY October 28, 2016 12:00am January 05, 2018 12:29pm ANXIETY Comment on above: Take 1 tablet by lucio th three times daily as needed. fluconazole 200 mg oral tablet (19 sources) Azole Antifungal Start: 8 End: 8 take 1 tablet by mouth once daily Fluconazole 200 MG tablet Discontinued 200 mg PO DAILY 7 0 August 04, 2017 1:00am August 23, 2017 [...] BLOOD (3 sources) Start: 10-26-2016 End: 01-26-2025 Infinio BLUE STRP Check BG 4-5 times daily GLUCOSE BLOOD [id number] Sena Cox PEDIATRIC NEUROLOGIST 3 ml insulin detemir 100 unt/ml pen injector (19 sources) Insulin Analog Start: 08-25-2016 End: 08-25-2016 Insulin Detemir U-100 (Levemir Flextouch U100 Insulin) 100 UNITS/ML Insuln.Pen Discontinued 15 U SC AT BEDTIME 1 0 August 25, 2016 12:00am August 25, 2016 11:19am Start: 08-25-2016 End: 08-25-2016 Insulin Detemir U-100 (Levem ir Flextouch U-100 Insuln) 100 UNITS/ML Insuln.Pen Discontinued 15 UNITS SC AT BEDTIME 1 August 25, 2016 12:00am August 25, 2016 [...] glucose less than 130 mg/dl Insulin Glargine-Yfgn (18 sources) Start: 08-11-2022 End: 10-09-2024 Insulin Glargine-Yfgn 100 un it/mL (3 mL) insulin pen Discontinued 85 U SC AT BEDTIME 15 August 11, 2022 9:21am October 09, 2024 8:22pm Start: 08-11-2022 End: 10-09-2024 Insulin Glargine-Yfgn 100 un it/mL (3 mL) insulin pen Discontinued 85 U SC AT BEDTIME August 11, 2022 9:21am October 09, 2024 8:22pm Start: 08-11-2022 Insulin Glargi ne-Yfgn Active 85 UNIT SC AT BEDTIME 15 August 11, 2022 8:21am Start: 08-11-2022 Insulin Glargi ne-Yfgn Active 85 UNIT SC AT BEDTIME 15 August 11, 2022 9:21am Start: 11-24-2021 End: 08-11-2022 Insulin Glargine-Yfgn 100 un it/mL (3 mL) Insulin Pen Discontinued 75 U SC AT BEDTIME 0 0 November 24, 2021 12:00am August 11, 2022 9:25am Start: 11-24-2021 End: 08-11-2022 Insulin Glargine-Yfgn 100 [...] MG tablet Discontinued 100 mg PO DAILY 30 0 February 28, 2019 12:00am November 22, 2021 6:36pm Comment on above: Take 1 tablet by lucio once daily. LANCETS (3 sources) Start: 10-26-2016 ON[facility]CH [facility] Use to check blood glucose up to 4 times daily. LANCETS [id number] Sena Cox PEDIATRIC NEUROLOGIST mag hydrox/aluminum hyd/simeth (ANTACID SUSPENSION ORAL) (5 [...] 1 NMA TOPICAL TWICE A DAY 85 2 March 01, 2019 1:26pm November 22, 2021 6:36pm Miconazole powd (5 sources) Miconazole powd twice daily. 0 Active Comment on above: twice daily. nystatin [id number] unt/ml oral suspension (17 sources) Polyene Antifungal Start: 01-09-2023 End: 05-28-2024 take 1 mL by mouth four times daily Nystatin 100,000 unit/mL suspension Discontinued 2 mL PO 4 TIMES DAILY 40 5 0 January 09, 2023 12:00am May 28, 2024 4:20pm Put 1 mL in each side of mouth 4 times a day. Start: 01-09-2023 take 1 mL by mouth f our times daily Nystatin Active 2 ML PO 4 TIMES DAILY 40 5 January 08, 2023 11:00pm Put 1 mL in each side of mouth 4 times a day. Start: 11-24-2021 Start: 11-24-2021 Nystatin (Nyam yc) 100,000 unit/gram Powder Active 1 APPLIC TOPICAL THREE TIMES A DAY 0 November 23, 2021 11:00pm polyethylene glycol 3350 63779 mg powder for oral solution (9 sources) Osmotic Laxative Start: 09-08-2021 End: 10-08-2021 polyethylene glycol 3350 (MIRALAX, GLYCOLAX) 17 gram packet Take 1 Packet by mouth once daily. Dissolve dose in 4 - 8 ounces of liquid and take as directed. 30 Packet 0 09/08/2021 10/08/2021 Comment on above: Take 1 Packet by lucio once daily. Dissolve dose in 4 - [...] Problem Classification Problem Date Documented Date Episodic/Chronic Acute and unspecified renal failure (1 source) Acute kidney failure with tubular necrosis; Translations: [Acute kidney failure with tubular necrosis] Onset: 02-06-2025 Episodic Attention-deficit, conduct, and disruptive behavior disorders (5 sources) Very low level of personal hygiene; Translations: [Very low level of personal hygiene] 10-09-2024 Episodic Cancer of uterus (20 sources) Malignant neoplasm of endometrium of corpus uteri ; Translations: [Malignant neoplasm of endometrium] Onset: 09-08-2021 Chronic Comment on above: Endometrial adenocar cinoma, 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 Has been referred to [facility] and has appt on 08/21/2021.Discussed management of endometrial cancer, surgery followed by adjuvant therapy depending on the stage.Pt agrees to proceed with surgical consultation. Complications of surgical procedures or medical care (4 sources) Difficult intubation; Translations: [Failed or difficult intubation, initial encounter] Onset: 09-07-2021 09-07-2021 Episodic Diabetes mellitus with complications (3 sources) Secondary diabetes mellitus; Translations: [Diabetes mellitus [...] Onset: 11-21-2024 Chronic Fluid and electrolyte disorders (15 sources) Lactic acidosis; Translations: [Acidosis] Episodic Genitourinary symptoms and ill-defined conditions (19 sources) History of recurrent urinary tract infection; Translations: [Personal history of urinary (tract) infections] 08-23-2017 Episodic Malaise and fatigue (20 sources) Asthenia; Translations: [Other malaise] Episodic Mood disorders (20 sources) Mood disorder; Translations: [Unspecified mood [affective] disorder] Onset: 09-04-2014 06-01-2021 Chronic Nutritional deficiencies (20 sources) Vitamin D deficiency; Translations: [Vitamin D deficiency, unspecified] Onset: 10-26-2024 08-23-2017 Chronic Other aftercare (4 sources) Postoperative visit; Translations: [Encounter for other specified surgical aftercare] Onset: 09-07-2021 09-08-2021 Episodic Other and unspecified benign neoplasm (1 source) Benign neoplasm of parotid gland; Translations: [Benign neoplasm of parotid gland] Onset: 03-08-2025 Episodic Other connective tissue disease (5 sources) Foot pain; Translations: [Neuralgia and neuritis, unspecified] 10-09-2024 Episodic Other connective tissue disease (6 sources) Heel pain; Translations: [Pain in left foot] 10-09-2024 Episodic Other connective tissue disease (1 source) Pain of left heel; Translations: [Pain in left foot] 10-09-2024 Episodic Other diseases of veins and lymphatics (20 sources) Lymphedema; Translations: [Lymphedema, not elsewhere classified] 08-03-2017 Chronic Other female genital disorders (19 sources) Abnormal vaginal bleeding; Translations: [Abnormal uterine and vaginal bleeding, unspecified] 08-03-2021 Chronic Other female genital disorders (19 sources) Lump of cervix; Translations: [Other specified noninflammatory disorders of cervix uteri] 08-03-2021 Episodic Other female genital disorders (19 sources) Mass of uterus; Translations: [Other specified noninflammatory disorders of uterus] 07-30-2021 Episodic Other female genital disorders (9 sources) Other specified noninflammatory disorders of uterus; Translations: [Other specified symptoms associated with female genital organs] Episodic Other hematologic conditions (12 sources) High troponin I level; Translations: [Other specified abnormalities of plasma proteins] 12-02-2021 Episodic Other hematologic conditions (3 sources) Other specified abnormalities of plasma proteins; Translations: [Other abnormal blood chemistry] Episodic Other inflammatory condition of skin (19 sources) Intertrigo; Translations: [Erythema intertrigo] 08-04-2017 Episodic Other nutritional; endocrine; and metabolic disorders (6 sources) Overweight; Translations: [Body mass index (BMI) 40.0-44.9, adult] Onset: 10-26-2016 10-26-2016 Chronic Other nutritional; endocrine; and metabolic disorders (5 sources) Body mass index 40+ - severely obese; Translations: [Morbid (severe) obesity due to excess calories] 10-09-2024 Chronic Other nutritional; endocrine; and metabolic disorders (7 sources) Obesity; Translations: [Obesity, unspecified] 05-28-2024 Chronic [...] problems or disability 10-26-2016 Other skin disorders (3 sources) Infection of toenail; Translations: [Ingrowing nail] 11-09-2023 Episodic Other upper respiratory infections (5 sources) Acute bacterial pharyngitis; Translations: [Acute pharyngitis due to other specified organisms] 01-09-2023 Episodic Pulmonary heart disease (20 sources) Pulmonary embolism; Translations: [Other pulmonary embolism without acute cor pulmonale] Episodic Residual codes; unclassified (16 sources) History of clinical finding in subject; Translations: [Personal history of other specified conditions] 08-23-2017 Episodic Residual codes; unclassified (6 sources) Personal history of other specified conditions; Translations: [Personal history of other specified diseases] 05-06-2022 Episodic Residual codes; unclassified (5 sources) Unable to perform personal care activity; Translations: [Other specified health status] 10-09-2024 Episodic Screening and history of mental health and substance abuse codes (11 sources) Ex-smoker; Translations: [Personal history of nicotine dependence] 05-10-2022 Episodic Septicemia (except in labor) (19 sources) Sepsis; Translations: [Sepsis, unspecified organism] 08-02-2017 Episodic Skin and subcutaneous tissue infections (19 sources) Cellulitis; Translations: [Cellulitis, unspecified] 08-02-2017 Episodic Substance-related disorders (5 sources) Tobacco user; Translations: [Nicotine dependence, unspecified, uncomplicated] Onset: 07-15-2005 07-15-2005 Chronic Systemic lupus erythematosus and connective tissue disorders (5 sources) Systemic lupus erythematosus; Translations: [Systemic lupus erythematosus, unspecified] Onset: 07-15-2005 07-15-2005 Chronic Unclassified (4 sources) Pain of left heel; Translations: [M79.672 - Pain in left foot] Past or Other Problems Problem Classification Problem Date Documented Da te Episodic/Chronic Attention-deficit, conduct, and disruptive behavior disorders (1 source) Very low level of personal hygiene; Translations: [Very low level of personal hygiene] Onset: 10-11-2024 Episodic Diabetes mellitus without complication (5 sources) Hyperglycemia; Translations: [Hyperglycemia, unspecified] Onset: 09-04-2014 09-04-2014 Episodic Other aftercare (1 source) residential (current) use of insulin; Translations: [residential (current) use of insulin] Onset: 10-11-2024 Episodic Other connective tissue disease (5 sources) Muscle pain; Translations: [Myalgia and myositis, unspecified] Onset: 07-15-2005 07-15-2005 Episodic Other connective tissue disease (1 source) Pain in right foot; Translations: [Pain in right foot] Onset: 11-20-2024 Episodic Other connective tissue disease (1 source) Neuralgia and neuritis, unspecified; Translations: [Neuralgia and neuritis, unspecified] Onset: 10-11-2024 Episodic Other connective tissue disease (1 source) Pain in left foot; Translations: [Pain in left foot] Onset: 10-19-2024 Episodic Other ear and sense organ disorders (1 source) Impacted cerumen, right ear; Translations: [Impacted cerumen, right ear] Onset: 05-28-2024 Episodic Other liver diseases (5 sources) Enzyme level - finding; Translations: [Elevated transaminase level] Onset: 09-04-2014 09-04-2014 Episodic Other screening for suspected conditions (not mental disorders or infectious disease) (4 sources) Other specified abnormal findings of blood chemistry; Translations: [Elevated liver function tests] Onset: 06-19-2024 10-10-2023 Episodic Residual codes; unclassified (1 source) Other specified health status; Translations: [Other specified health status] Onset: 10-11-2024 Episodic Unclassified (19 sources) history of broken heel left foot 12-30-2021 Urinary tract infections (20 sources) Urinary tract infectious disease; Translations: [Urinary tract infection, site not specified] Onset: 10-11-2024 08-04-2017 Episodic Results Test Name Value Interpretation Reference Range Facility Basic Metabolic Profile (BMP )on 03-20-2025 BUN/CRE 20.6 RATIO High 03-25 [facility] Comment on above: Order Comment: 134 Performed By: #### L [id number], L506.1000, L100.0100, [id number] #### [facility] [address] [place], [address] Calcium [Mass/Vol] 9.7 mg/dL Normal 7.6-11.0 [facility] Comment on above: Order Comment: 134 Performed By: #### L 500.4050, L506.1000, L100.0100, [id number] #### [facility] [address] [place], [address] Chloride [Moles/Vol] 103 mmol/L Normal 98-108 [facility] Comment on above: Order Comment: 134 Performed By: #### L 500.4050, L506.1000, L100.0100, [id number] #### [facility] [address] [place], [address] CO2 [Moles/Vol] 21.4 mmol/L Normal 21.0-32.0 [facility] Comment on above: Order Comment: 134 Performed By: #### L 500.4050, L506.1000, L100.0100, [id number] #### [facility] [address] [place], [address] Creatinine [Mass/Vol] 1.15 mg/dL Normal 0.70-1.20 [facility] Comment on above: Order Comment: 134 Performed By: #### L 500.4050, L506.1000, L100.0100, [id number] #### [facility] [address] [place], [address] GAP 13 Normal 5-15 [facility] Comment on above: Order Comment: 134 Performed By: #### L 500.4050, L506.1000, L100.0100, [id number] #### [facility] [address] [place], [address] GFR/1.73 sq M.predicted among non-blacks MDRD (S/P/Bld) [Vol rate/Area] 51 mL/min/{1.73_m2} Low >60 [facility] Comment on above: Order Comment: 134 Result Comment: mL/m in/1.73m2 CKD-EPI Creatinine Equation (2020) Performed By: #### L 500.4050, L506.1000, L100.0100, [id number] #### [facility] [address] [place], [address] Glucose [Mass/Vol] 224 mg/dL High 70-99 [facility] Comment on above: Order Comment: 134 Performed By: #### L 500.4050, L506.1000, L100.0100, [id number] #### [facility] [address] [place], [address] Potassium [Moles/Vol] 4.7 mmol/L Normal 3.3-5.1 [facility] Comment on above: Order Comment: 134 Result Comment: Hemo lysis present, Results??could be affected. ?? Performed By: #### L 500.4050, L506.1000, L100.0100, [id number] #### [facility] [address] [place], [address] Sodium [Moles/Vol] 137 mmol/L Normal 133-145 [facility] Comment on above: Order Comment: 134 Performed By: #### L 500.4050, L506.1000, L100.0100, [id number] #### [facility] [address] [place], [address] Urea nitrogen [Mass/Vol] 24 mg/dL High 4-19 [facility] Comment on above: Order Comment: 134 Performed By: #### L 500.4050, L506.1000, L100.0100, [id number] #### [facility] [address] [place], [address] CBC-Complete Blood Cnt No Di ffon 03-20-2025 Erythrocyte distribution width (RBC) [Ratio] 14.8 % High 11.6-14.6 [facility] Comment on above: Order Comment: 134 Performed By: #### L 500.4050, L506.1000, L100.0100, [id number] #### [facility] [address] [place], [address] Hematocrit (Bld) [Volume fraction] 35.8 % Low 37-47 [facility] Comment on above: Order Comment: 134 Performed By: #### L 500.4050, L506.1000, L100.0100, [id number] #### [facility] [address] [place], [address] Hemoglobin (Bld) [Mass/Vol] 11.8 g/dL Low 12.0-15.0 [facility] Comment on above: Order Comment: 134 Performed By: #### L 500.4050, L506.1000, L100.0100, [id number] #### [facility] [address] [place], [address] MCH (RBC) [Entitic mass] 29.9 pg Normal 27.0-32.0 [facility] Comment on above: Order Comment: 134 Performed By: #### L 500.4050, L506.1000, L100.0100, [id number] #### [facility] [address] [place], [address] MCHC (RBC) [Mass/Vol] 33.0 g/dL Normal 32-36 [facility] Comment on above: Order Comment: 134 Performed By: #### L 500.4050, L506.1000, L100.0100, [id number] #### [facility] [address] [place], [address] MCV (RBC) [Entitic vol] 90.6 fL Normal 81-99 [facility] Comment on above: Order Comment: 134 Performed By: #### L 500.4050, L506.1000, L100.0100, L501.9985 #### [facility] [address] [place], [address] Platelet mean volume (Bld) [Entitic vol] 11.3 fL Normal 6.2-12.0 [facility] Comment on above: Order Comment: 134 Performed By: #### L 500.4050, L506.1000, L100.0100, [id number] #### [facility] [address] [place], [address] Platelets (Bld) [#/Vol] 103 10*3/uL Low 150-450 [facility] Comment on above: Order Comment: 134 Performed By: #### L 500.4050, L506.1000, L100.0100, [id number] #### [facility] [address] [place], [address] RBC (Bld) [#/Vol] 3.95 10*6/uL Low 4.2-5.4 [facility] Comment on above: Order Comment: 134 Performed By: #### L 500.4050, L506.1000, L100.0100, [id number] #### [facility] [address] [place], [address] RDW SD 49.4 fl High 35.1-43.9 [facility] Comment on above: Order Comment: 134 Performed By: #### L 500.4050, L506.1000, L100.0100, [id number] #### [facility] [address] [place], [address] WBC (Bld) [#/Vol] 3.7 10*3/uL Low 4.4-11.0 [facility] Comment on above: Order Comment: 134 Performed By: #### L 500.4050, L506.1000, L100.0100, [id number] #### [facility] [address] [place], [address] Hemoglobin A1con 03-20-2025 HbA1c (Bld) [Mass fraction] 7.1 % High <=5.6 [facility] Comment on above: Order Comment: 134 Result Comment: Norm al < 5.7 % Prediabetic 5.7 - 6.4 % Diabetic >or= 6.5 % Please note range changes. Performed By: #### L 500.4050, L506.1000, L100.0100, L501.9985 #### [facility] [address] [place], [address] Pro- Brain NATRIURETIC PEPTI Oskar 03-20-2025 Natriuretic peptide B (Bld) [Mass/Vol] 133 pg/mL Normal <=900 [facility] Comment on above: Order Comment: 134 Result Comment: Hear t Failure Unlikely: < 300 pg/mL Heart Failure Likely < 50 Years: > 450 pg/mL 50-75 Years: > 900 pg/mL >75 Years: > 1800 pg/mL Performed By: #### L 500.4050, L506.1000, L100.0100, [id number] #### [facility] [address] [place], [address] Magnesiumon 01-23-2025 Magnesium [Mass/Vol] 2.1 mg/dL Normal 1.5-2.2 [facility] Comment on above: Order Comment: 134 Performed By: #### L 500.4050, L506.1000, L100.0100, [id number] #### [facility] [address] [place], [address] Anion gap in Serum or Plasma Ordered By: Malathi Tomas on 01-21-2025 Anion gap [Moles/Vol] 13 mmol/L - [facility] BUN/creatinine ratioOrdered By: Malathi Tomas on 01-21-2025 Urea nitrogen/Creatinine [Mass ratio] 23.4 mg/mg High - [facility] Basic Metabolic Profile (BMP )on 01-21-2025 BUN/CRE 23.4 RATIO High [facility] Comment on above: Order Comment: 134 Performed By: #### L 500.4050, L506.1000, L100.0100, [id number] #### [facility] [address] [place], [address] Calcium [Mass/Vol] 9.2 mg/dL Normal 7.6-11.0 [facility] Comment on above: Order Comment: 134 Performed By: #### L 500.4050, L506.1000, L100.0100, [id number] #### [facility] [address] [place], [address] Chloride [Moles/Vol] 103 mmol/L Normal 98-108 [facility] Comment on above: Order Comment: 134 Performed By: #### L 500.4050, L506.1000, L100.0100, [id number] #### [facility] [address] [place], [address] CO2 [Moles/Vol] 20.8 mmol/L Low 21.0-32.0 [facility] Comment on above: Order Comment: 134 Performed By: #### L 500.4050, L506.1000, L100.0100, [id number] #### [facility] [address] [place], [address] Creatinine [Mass/Vol] 1.01 mg/dL Normal 0.70-1.20 [facility] Comment on above: Order Comment: 134 Performed By: #### L 500.4050, L506.1000, L100.0100, [id number] #### [facility] [address] [place], [address] GAP 13 Normal 5-15 [facility] Comment on above: Order Comment: 134 Performed By: #### L 500.4050, L506.1000, L100.0100, L501.9985 #### [facility] [address] [place], [address] GFR/1.73 sq M.predicted among non-blacks MDRD (S/P/Bld) [Vol rate/Area] 59 mL/min/{1.73_m2} Low >60 [facility] Comment on above: Order Comment: 134 Result Comment: mL/m in/1.73m2 CKD-EPI Creatinine Equation (2020) Performed By: #### L 500.4050, L506.1000, L100.0100, L501.9985 #### [facility] [address] [place], [address] Glucose [Mass/Vol] 164 mg/dL High 70-99 [facility] Comment on above: Order Comment: 134 Performed By: #### L 500.4050, L506.1000, L100.0100, L501.9985 #### [facility] [address] [place], [address] Potassium [Moles/Vol] 4.8 mmol/L Normal 3.3-5.1 [facility] Comment on above: Order Comment: 134 Performed By: #### L 500.4050, L506.1000, L100.0100, [id number] #### [facility] [address] [place], [address] Sodium [Moles/Vol] 137 mmol/L Normal 133-145 [facility] Comment on above: Order Comment: 134 Performed By: #### L 500.4050, L506.1000, L100.0100, L501.9985 #### [facility] [address] [place], [address] Urea nitrogen [Mass/Vol] 24 mg/dL High 4-19 [facility] Comment on above: Order Comment: 134 Performed By: #### L 500.4050, L506.1000, L100.0100, L501.9985 #### [facility] [address] [place], [address] Carbon dioxide, total [Moles /volume] in Central venous bloodOrdered By: Malathi Tomas on 01-21-2025 CO2 [Moles/Vol] 20.8 mmol/L Low 21.0-32.0 [facility] Chloride assayOrdered By: Tao Tomas on 01-21-2025 Chloride [Moles/Vol] 103 mmol/L 98-108 [facility] Glomerular filtration rate ( GFR) estimation/1.73 sq m using serum, plasma, or whole bOrdered By: Malathi Tomas on 01-21-2025 GFR/1.73 sq M.predicted among non-blacks MDRD (S/P/Bld) [Vol rate/Area] 59 mL/min/{1.73_m2} Low >60 [facility] Comment on above: mL/min/1.73m2 CKD-EP I Creatinine Equation (2020) Magnesium measurement (mass/ volume)Ordered By: Malathi Tomas on 01-21-2025 Magnesium (Unsp spec) [Mass/Vol] 2.1 mg/dL 1.5-2.2 [facility] Natriuretic peptide.B prohor magi N-Terminal [Mass/volume] in Serum or PlasmaOrdered By: Malathi Tomas on 01-21-2025 Natriuretic peptide.B prohormone N-Terminal [Mass/Vol] 260 pg/mL <900 [facility] Comment on above: Heart Failure Unlike ly: < 300 pg/mLHeart Failure Likely< 50 Years: > 450 pg/mL50-75 Years: > 900 pg/mL>75 Years: > 1800 pg/mL Potassium measurement (mass/ volume)Ordered By: Malathi Tomas on 01-21-2025 Potassium (Unsp spec) [Mass/Vol] 4.8 mmol/L 3.3-5.1 [facility] Pro- Brain NATRIURETIC PEPTI Oskar 01-21-2025 Natriuretic peptide B (Bld) [Mass/Vol] 260 pg/mL Normal <=900 [facility] Comment on above: Order Comment: 134 Result Comment: Hear t Failure Unlikely: < 300 pg/mL Heart Failure Likely < 50 Years: > 450 pg/mL 50-75 Years: > 900 pg/mL >75 Years: > 1800 pg/mL Performed By: #### L 500.4050, L506.1000, L100.0100, L501.9985 #### [facility] [address] [place], [address] Serum creatinine measurement (mass/volume)Ordered By: Malathi Tomas on 01-21-2025 Creatinine [Mass/Vol] 1.01 mg/dL 0.70-1.20 [facility] Serum glucose measurement (m ass/volume)Ordered By: Malathi Tomas on 01-21-2025 Glucose [Mass/Vol] 164 mg/dL High 70-99 [facility] Serum or plasma calcium kim urement (mass/volume)Ordered By: Malathi Tomas on 01-21-2025 Calcium [Mass/Vol] 9.2 mg/dL 7.6-11.0 [facility] Serum or plasma urea nitroge n measurement (mass/volume)Ordered By: Malathi Tomas on 01-21-2025 Urea nitrogen [Mass/Vol] 24 mg/dL High 4-19 [facility] Sodium levelOrdered By: Marie Tomas on 01-21-2025 Sodium [Moles/Vol] 137 mmol/L 133-145 [facility] Anion gap in Serum or Plasma Ordered By: Malathi Tomas on 12-04-2024 Anion gap [Moles/Vol] 10 mmol/L 5-15 [facility] BUN/creatinine ratioOrdered By: Malathi Tomas on 12-04-2024 Urea nitrogen/Creatinine [Mass ratio] 22.2 mg/mg High - [facility] Basic Metabolic Profile (BMP )on 12-04-2024 BUN/CRE 22.2 RATIO High - [facility] Comment on above: Order Comment: 134 Performed By: #### L 500.4050, L506.1000, L501.9985, L100.0100 #### [facility] [address] [place], [address] Calcium [Mass/Vol] 9.4 mg/dL Normal 7.6-11.0 [facility] Comment on above: Order Comment: 134 Performed By: #### L 500.4050, L506.1000, L501.9985, L100.0100 #### [facility] [address] [place], [address] Chloride [Moles/Vol] 103 mmol/L Normal 98-108 [facility] Comment on above: Order Comment: 134 Performed By: #### L 500.4050, L506.1000, L501.9985, L100.0100 #### [facility] [address] [place], [address] CO2 [Moles/Vol] 23.5 mmol/L Normal 21.0-32.0 [facility] Comment on above: Order Comment: 134 Performed By: #### L 500.4050, L506.1000, L501.9985, L100.0100 #### [facility] [address] [place], [address] Creatinine [Mass/Vol] 1.13 mg/dL Normal 0.70-1.20 [facility] Comment on above: Order Comment: 134 Performed By: #### L 500.4050, L506.1000, L501.9985, L100.0100 #### [facility] [address] [place], [address] GAP 10 Normal 5-15 [facility] Comment on above: Order Comment: 134 Performed By: #### L 500.4050, L506.1000, L501.9985, L100.0100 #### [facility] [address] [place], [address] GFR/1.73 sq M.predicted among non-blacks MDRD (S/P/Bld) [Vol rate/Area] 52 mL/min/{1.73_m2} Low >60 [facility] Comment on above: Order Comment: 134 Result Comment: mL/m in/1.73m2 CKD-EPI Creatinine Equation (2020) Performed By: #### L 500.4050, L506.1000, L501.9985, L100.0100 #### [facility] [address] [place], [address] Glucose [Mass/Vol] 83 mg/dL Normal 70-99 [facility] Comment on above: Order Comment: 134 Performed By: #### L 500.4050, L506.1000, L501.9985, L100.0100 #### [facility] [address] [place], [address] Potassium [Moles/Vol] 5.1 mmol/L Normal 3.3-5.1 [facility] Comment on above: Order Comment: 134 Result Comment: Hemo lysis present, Results??could be affected. ?? Performed By: #### L 500.4050, L506.1000, L501.9985, L100.0100 #### [facility] [address] [place], [address] Sodium [Moles/Vol] 136 mmol/L Normal 133-145 [facility] Comment on above: Order Comment: 134 Performed By: #### L 500.4050, L506.1000, L501.9985, L100.0100 #### [facility] [address] [place], [address] Urea nitrogen [Mass/Vol] 25 mg/dL High 4-19 [facility] Comment on above: Order Comment: 134 Performed By: #### L 500.4050, L506.1000, L501.9985, L100.0100 #### [facility] [address] [place], [address] CBC-Complete Blood Cnt No Di ffon 12-04-2024 Erythrocyte distribution width (RBC) [Ratio] 16.2 % High 11.6-14.6 [facility] Comment on above: Order Comment: 134 Performed By: #### L 500.4050, L506.1000, L501.9985, L100.0100 #### [facility] [address] [place], [address] Hematocrit (Bld) [Volume fraction] 33.8 % Low 37-47 [facility] Comment on above: Order Comment: 134 Performed By: #### L 500.4050, L506.1000, L501.9985, L100.0100 #### [facility] [address] [place], [address] Hemoglobin (Bld) [Mass/Vol] 11.2 g/dL Low 12.0-15.0 [facility] Comment on above: Order Comment: 134 Performed By: #### L 500.4050, L506.1000, L501.9985, L100.0100 #### [facility] [address] [place], [address] MCH (RBC) [Entitic mass] 29.3 pg Normal 27.0-32.0 [facility] Comment on above: Order Comment: 134 Performed By: #### L 500.4050, L506.1000, L501.9985, L100.0100 #### [facility] [address] [place], [address] MCHC (RBC) [Mass/Vol] 33.1 g/dL Normal 32-36 [facility] Comment on above: Order Comment: 134 Performed By: #### L 500.4050, L506.1000, L501.9985, L100.0100 #### [facility] [address] [place], [address] MCV (RBC) [Entitic vol] 88.5 fL Normal 81-99 [facility] Comment on above: Order Comment: 134 Performed By: #### L 500.4050, L506.1000, L501.9985, L100.0100 #### [facility] [address] [place], [address] Platelet mean volume (Bld) [Entitic vol] 11.2 fL Normal 6.2-12.0 [facility] Comment on above: Order Comment: 134 Performed By: #### L 500.4050, L506.1000, L501.9985, L100.0100 #### [facility] [address] [place], [address] Platelets (Bld) [#/Vol] 119 10*3/uL Low 150-450 [facility] Comment on above: Order Comment: 134 Performed By: #### L 500.4050, L506.1000, L501.9985, L100.0100 #### [facility] [address] [place], [address] RBC (Bld) [#/Vol] 3.82 10*6/uL Low 4.2-5.4 [facility] Comment on above: Order Comment: 134 Performed By: #### L 500.4050, L506.1000, L501.9985, L100.0100 #### [facility] [address] [place], [address] RDW SD 52.9 fl High 35.1-43.9 [facility] Comment on above: Order Comment: 134 Performed By: #### L 500.4050, L506.1000, L501.9985, L100.0100 #### [facility] [address] [place], [address] WBC (Bld) [#/Vol] 3.1 10*3/uL Low 4.4-11.0 [facility] Comment on above: Order Comment: 134 Performed By: #### L 500.4050, L506.1000, L501.9985, L100.0100 #### [facility] [address] [place], [address] Carbon dioxide, total [Moles /volume] in Central venous bloodOrdered By: Malathi Tomas on 12-04-2024 CO2 [Moles/Vol] 23.5 mmol/L 21.0-32.0 [facility] Chloride assayOrdered By: Tao Tomas on 12-04-2024 Chloride [Moles/Vol] 103 mmol/L 98-108 [facility] Erythrocyte distribution wid th ratioOrdered By: Malathi Tomas on 12-04-2024 Erythrocyte distribution width (RBC) [Ratio] 16.2 % High 11.6-14.6 [facility] Erythrocyte distribution wid th standard deviationOrdered By: Malathi Tomas on 12-04-2024 Erythrocyte distribution width (RBC) [Ratio] 52.9 fl High 35.1-43.9 [facility] Glomerular filtration rate ( GFR) estimation/1.73 sq m using serum, plasma, or whole bOrdered By: Malathi Tomas on 12-04-2024 GFR/1.73 sq M.predicted among non-blacks MDRD (S/P/Bld) [Vol rate/Area] 52 mL/min/{1.73_m2} Low >60 [facility] Comment on above: mL/min/1.73m2 CKD-EP I Creatinine Equation (2020) Hematocrit Auto (Bld) [Volum e fraction]Ordered By: Malathi Tomas on 12-04-2024 Hematocrit (Bld) [Volume fraction] 33.8 % Low 37-47 [facility] Hemoglobin measurementOrdere d By: Malathi Tomas on 12-04-2024 Hemoglobin (Bld) [Mass/Vol] 11.2 g/dL Low 12.0-15.0 [facility] MCV (mean corpuscular volume ) determinationOrdered By: Malathi Tomas on 12-04-2024 MCV (RBC) [Entitic vol] 88.5 fL 81-99 [facility] Magnesiumon 12-04-2024 Magnesium [Mass/Vol] 2.3 mg/dL High 1.5-2.2 [facility] Comment on above: Order Comment: 134 Performed By: #### L 500.4050, L506.1000, L501.9985, L100.0100 #### [facility] [address] [place], [address] Magnesium measurement (mass/ volume)Ordered By: Malathi Tomas on 12-04-2024 Magnesium (Unsp spec) [Mass/Vol] 2.3 mg/dL High 1.5-2.2 [facility] Mean corpuscular hemoglobin (MCH) determinationOrdered By: Malathi Tomas on 12-04-2024 MCH (RBC) [Entitic mass] 29.3 pg 27.0-32.0 [facility] Mean corpuscular hemoglobin concentration (MCHC) determinationOrdered By: Malathi Tomas on 12-04-2024 MCHC (RBC) [Mass/Vol] 33.1 g/dL 32-36 [facility] Mean platelet volume determi nationOrdered By: Malathi Tomas on 12-04-2024 Platelet mean volume (Bld) [Entitic vol] 11.2 fL 6.2-12.0 [facility] Platelet countOrdered By: Tao Tomas on 12-04-2024 Platelets (Bld) [#/Vol] 119 10*3/uL Low 150-450 [facility] Potassium measurement (mass/ volume)Ordered By: Malathi Tomas on 12-04-2024 Potassium (Unsp spec) [Mass/Vol] 5.1 mmol/L 3.3-5.1 [facility] Comment on above: Hemolysis present, R esults could be affected. RBC Auto (Bld) [#/Vol]Ordere d By: Malathi Tomas on 12-04-2024 RBC (Bld) [#/Vol] 3.82 10*6/uL Low 4.2-5.4 [facility] Serum creatinine measurement (mass/volume)Ordered By: Malathi Tomas on 12-04-2024 Creatinine [Mass/Vol] 1.13 mg/dL 0.70-1.20 [facility] Serum glucose measurement (m ass/volume)Ordered By: Malathi Tomas on 12-04-2024 Glucose [Mass/Vol] 83 mg/dL 70-99 [facility] Serum or plasma calcium kim urement (mass/volume)Ordered By: Malathi Tomas on 12-04-2024 Calcium [Mass/Vol] 9.4 mg/dL 7.6-11.0 [facility] Serum or plasma urea nitroge n measurement (mass/volume)Ordered By: Malathi Tomas on 12-04-2024 Urea nitrogen [Mass/Vol] 25 mg/dL High 4-19 [facility] Sodium levelOrdered By: Marie Tomas on 12-04-2024 Sodium [Moles/Vol] 136 mmol/L 133-145 [facility] White blood cell (WBC) count Ordered By: Malathi Tomas on 12-04-2024 WBC (Bld) [#/Vol] 3.1 10*3/uL Low 4.4-11.0 [facility] Anion gap in Serum or Plasma Ordered By: Malathi Tomas on 11-26-2024 Anion gap [Moles/Vol] 12 mmol/L 5-15 [facility] BUN/creatinine ratioOrdered By: Malathi Tomas on 11-26-2024 Urea nitrogen/Creatinine [Mass ratio] 19.5 mg/mg - [facility] Basic Metabolic Profile (BMP )on 11-26-2024 BUN/CRE 19.5 RATIO Normal - [facility] Comment on above: Order Comment: 134 Performed By: #### L 500.4050, L506.1000, L100.0100, L501.9985 #### [facility] [address] [place], [address] Calcium [Mass/Vol] 9.3 mg/dL Normal 7.6-11.0 [facility] Comment on above: Order Comment: 134 Performed By: #### L 500.4050, L506.1000, L100.0100, [id number] #### [facility] [address] [place], [address] Chloride [Moles/Vol] 106 mmol/L Normal 98-108 [facility] Comment on above: Order Comment: 134 Performed By: #### L 500.4050, L506.1000, L100.0100, [id number] #### [facility] [address] [place], [address] CO2 [Moles/Vol] 22.9 mmol/L Normal 21.0-32.0 [facility] Comment on above: Order Comment: 134 Performed By: #### L 500.4050, L506.1000, L100.0100, [id number] #### [facility] [address] [place], [address] Creatinine [Mass/Vol] 0.95 mg/dL Normal 0.70-1.20 [facility] Comment on above: Order Comment: 134 Performed By: #### L 500.4050, L506.1000, L100.0100, [id number] #### [facility] [address] [place], [address] GAP 12 Normal 5-15 [facility] Comment on above: Order Comment: 134 Performed By: #### L 500.4050, L506.1000, L100.0100, [id number] #### [facility] [address] [place], [address] GFR/1.73 sq M.predicted among non-blacks MDRD (S/P/Bld) [Vol rate/Area] 64 mL/min/{1.73_m2} Normal >60 [facility] Comment on above: Order Comment: 134 Result Comment: mL/m in/1.73m2 CKD-EPI Creatinine Equation (2020) Performed By: #### L 500.4050, L506.1000, L100.0100, L501.9985 #### [facility] [address] [place], [address] Glucose [Mass/Vol] 89 mg/dL Normal 70-99 [facility] Comment on above: Order Comment: 134 Performed By: #### L 500.4050, L506.1000, L100.0100, [id number] #### [facility] [address] [place], [address] Potassium [Moles/Vol] 4.5 mmol/L Normal 3.3-5.1 [facility] Comment on above: Order Comment: 134 Performed By: #### L 500.4050, L506.1000, L100.0100, [id number] #### [facility] [address] [place], [address] Sodium [Moles/Vol] 140 mmol/L Normal 133-145 [facility] Comment on above: Order Comment: 134 Performed By: #### L 500.4050, L506.1000, L100.0100, [id number] #### [facility] [address] [place], [address] Urea nitrogen [Mass/Vol] 18 mg/dL Normal 4-19 [facility] Comment on above: Order Comment: 134 Performed By: #### L 500.4050, L506.1000, L100.0100, [id number] #### [facility] [address] [place], [place], [id number] Carbon dioxide, total [Moles /volume] in Central venous bloodOrdered By: Malathi Tomas on 11-26-2024 CO2 [Moles/Vol] 22.9 mmol/L 21.0-32.0 [facility] Chloride assayOrdered By: Tao Tomas on 11-26-2024 Chloride [Moles/Vol] 106 mmol/L 98-108 [facility] Glomerular filtration rate ( GFR) estimation/1.73 sq m using serum, plasma, or whole bOrdered By: Malathi Tomas on 11-26-2024 GFR/1.73 sq M.predicted among non-blacks MDRD (S/P/Bld) [Vol rate/Area] 64 mL/min/{1.73_m2} >60 [facility] Comment on above: mL/min/1.73m2 CKD-EP I Creatinine Equation (2020) Magnesiumon 11-26-2024 Magnesium [Mass/Vol] 2.2 mg/dL Normal 1.5-2.2 [facility] Comment on above: Order Comment: 134 Performed By: #### L 500.4050, L506.1000, L100.0100, L501.9985 #### [facility] [address] [place], [place], [id number] Magnesium measurement (mass/ volume)Ordered By: Malathi Tomas on 11-26-2024 Magnesium (Unsp spec) [Mass/Vol] 2.2 mg/dL 1.5-2.2 [facility] Potassium measurement (mass/ volume)Ordered By: Malathi Tomas on 11-26-2024 Potassium (Unsp spec) [Mass/Vol] 4.5 mmol/L 3.3-5.1 [facility] Serum creatinine measurement (mass/volume)Ordered By: Malathi Tomas on 11-26-2024 Creatinine [Mass/Vol] 0.95 mg/dL 0.70-1.20 [facility] Serum glucose measurement (m ass/volume)Ordered By: Malathi Tomas on 11-26-2024 Glucose [Mass/Vol] 89 mg/dL 70-99 [facility] Serum or plasma calcium kim urement (mass/volume)Ordered By: Malathi Tomas on 11-26-2024 Calcium [Mass/Vol] 9.3 mg/dL 7.6-11.0 [facility] Serum or plasma urea nitroge n measurement (mass/volume)Ordered By: Malathi Tomas on 11-26-2024 Urea nitrogen [Mass/Vol] 18 mg/dL 4-19 [facility] Sodium levelOrdered By: Marie Tomas on 11-26-2024 Sodium [Moles/Vol] 140 mmol/L 133-145 [facility] Basic Metabolic Profile (BMP )on 11-07-2024 BUN/CRE 19.5 RATIO Normal 10-20 [facility] Comment on above: Order Comment: 134 Performed By: #### L 500.4050, L506.1000, L100.0100, L501.9985 #### [facility] [address] [place], [address] Calcium [Mass/Vol] 9.0 mg/dL Normal 7.6-11.0 [facility] Comment on above: Order Comment: 134 Performed By: #### L 500.4050, L506.1000, L100.0100, [id number] #### [facility] [address] [place], [address] Chloride [Moles/Vol] 103 mmol/L Normal 98-108 [facility] Comment on above: Order Comment: 134 Performed By: #### L 500.4050, L506.1000, L100.0100, L501.9985 #### [facility] [address] [place], [address] CO2 [Moles/Vol] 25.5 mmol/L Normal 21.0-32.0 [facility] Comment on above: Order Comment: 134 Performed By: #### L 500.4050, L506.1000, L100.0100, [id number] #### [facility] [address] [place], [address] Creatinine [Mass/Vol] 0.82 mg/dL Normal 0.70-1.20 [facility] Comment on above: Order Comment: 134 Performed By: #### L 500.4050, L506.1000, L100.0100, [id number] #### [facility] [address] [place], [address] GAP 10 Normal 5-15 [facility] Comment on above: Order Comment: 134 Performed By: #### L 500.4050, L506.1000, L100.0100, L501.9985 #### [facility] [address] [place], [address] GFR/1.73 sq M.predicted among non-blacks MDRD (S/P/Bld) [Vol rate/Area] 76 mL/min/{1.73_m2} Normal >60 [facility] Comment on above: Order Comment: 134 Result Comment: mL/m in/1.73m2 CKD-EPI Creatinine Equation (2020) Performed By: #### L 500.4050, L506.1000, L100.0100, L501.9985 #### [facility] [address] [place], [address] Glucose [Mass/Vol] 79 mg/dL Normal 70-99 [facility] Comment on above: Order Comment: 134 Performed By: #### L 500.4050, L506.1000, L100.0100, [id number] #### [facility] [address] [place], [address] Potassium [Moles/Vol] 4.1 mmol/L Normal 3.3-5.1 [facility] Comment on above: Order Comment: 134 Performed By: #### L 500.4050, L506.1000, L100.0100, [id number] #### [facility] [address] [place], [address] Sodium [Moles/Vol] 139 mmol/L Normal 133-145 [facility] Comment on above: Order Comment: 134 Performed By: #### L 500.4050, L506.1000, L100.0100, L501.9985 #### [facility] [address] [place], [address] Urea nitrogen [Mass/Vol] 16 mg/dL Normal 4-19 [facility] Comment on above: Order Comment: 134 Performed By: #### L 500.4050, L506.1000, L100.0100, [id number] #### [facility] [address] [place], [address] CBC W/Diff, Automatedon 06-0 4-5 Absolute Lymph 1.04 X10 3/uL Normal 0.83-4.51 [facility] Comment on above: Order Comment: 134 Performed By: #### L 500.4050, L506.1000, L100.0100, L501.9985 #### [facility] [address] [place], [address] Absolute Neut 2.2 X10 3/uL Normal 2.0-7.7 [facility] Comment on above: Order Comment: 134 Performed By: #### L 500.4050, L506.1000, L100.0100, L501.9985 #### [facility] [address] [place], [address] Basophils/100 WBC (Bld) 0.8 % Normal 0-1 [facility] Comment on above: Order Comment: 134 Performed By: #### L 500.4050, L506.1000, L100.0100, L501.9985 #### [facility] [address] [place], [address] Eosinophils/100 WBC (Bld) 3.2 % Normal 0-5 [facility] Comment on above: Order Comment: 134 Performed By: #### L 500.4050, L506.1000, L100.0100, L501.9985 #### [facility] [address] [place], [address] Erythrocyte distribution width (RBC) [Ratio] 15.9 % High 11.6-14.6 [facility] Comment on above: Order Comment: 134 Performed By: #### L 500.4050, L506.1000, L100.0100, L501.9985 #### [facility] [address] [place], [address] Hematocrit (Bld) [Volume fraction] 34.4 % Low 37-47 [facility] Comment on above: Order Comment: 134 Performed By: #### L 500.4050, L506.1000, L100.0100, L501.9985 #### [facility] [address] [place], [address] Hemoglobin (Bld) [Mass/Vol] 11.1 g/dL Low 12.0-15.0 [facility] Comment on above: Order Comment: 134 Performed By: #### L 500.4050, L506.1000, L100.0100, L501.9985 #### [facility] [address] [place], [address] IG% 0.500 Normal 0.0-0.9 [facility] Comment on above: Order Comment: 134 Result Comment: IG% - Immature Granulocytes (promyelocytes, myelocytes and metamyelocytes) > 1% indicates that a LEFT SHIFT is Present. Performed By: #### L 500.4050, L506.1000, L100.0100, L501.9985 #### [facility] [address] [place], [address] Lymphocytes/100 WBC (Bld) 27.4 % Normal 19-41 [facility] Comment on above: Order Comment: 134 Performed By: #### L 500.4050, L506.1000, L100.0100, L501.9985 #### [facility] [address] [place], [address] MCH (RBC) [Entitic mass] 28.3 pg Normal 27.0-32.0 [facility] Comment on above: Order Comment: 134 Performed By: #### L 500.4050, L506.1000, L100.0100, L501.9985 #### [facility] [address] [place], [address] MCHC (RBC) [Mass/Vol] 32.3 g/dL Normal 32-36 [facility] Comment on above: Order Comment: 134 Performed By: #### L 500.4050, L506.1000, L100.0100, L501.9985 #### [facility] [address] [place], [address] MCV (RBC) [Entitic vol] 87.8 fL Normal 81-99 [facility] Comment on above: Order Comment: 134 Performed By: #### L 500.4050, L506.1000, L100.0100, L501.9985 #### [facility] [address] [place], [address] Monocytes/100 WBC (Bld) 9.7 % Normal 0-10 [facility] Comment on above: Order Comment: 134 Performed By: #### L 500.4050, L506.1000, L100.0100, L501.9985 #### [facility] [address] [place], [address] Neutrophils/100 WBC (Bld) 58.4 % Normal 47-70 [facility] Comment on above: Order Comment: 134 Performed By: #### L 500.4050, L506.1000, L100.0100, L501.9985 #### [facility] [address] [place], [address] Nucleated RBC (Bld) [#/Vol] 0 10*3/uL Normal 0-5 [facility] Comment on above: Order Comment: 134 Performed By: #### L 500.4050, L506.1000, L100.0100, L501.9985 #### [facility] [address] [place], [address] Platelet mean volume (Bld) [Entitic vol] 10.7 fL Normal 6.2-12.0 [facility] Comment on above: Order Comment: 134 Performed By: #### L 500.4050, L506.1000, L100.0100, L501.9985 #### [facility] [address] [place], [address] Platelets (Bld) [#/Vol] 122 10*3/uL Low 150-450 [facility] Comment on above: Order Comment: 134 Performed By: #### L 500.4050, L506.1000, L100.0100, L501.9985 #### [facility] [address] [place], [address] RBC (Bld) [#/Vol] 3.92 10*6/uL Low 4.2-5.4 [facility] Comment on above: Order Comment: 134 Performed By: #### L 500.4050, L506.1000, L100.0100, L501.9985 #### [facility] [address] [place], [address] RDW SD 51.3 fl High 35.1-43.9 [facility] Comment on above: Order Comment: 134 Performed By: #### L 500.4050, L506.1000, L100.0100, L501.9985 #### [facility] [address] [place], [address] WBC (Bld) [#/Vol] 3.8 10*3/uL Low 4.4-11.0 [facility] Comment on above: Order Comment: 134 Performed By: #### L 500.4050, L506.1000, L100.0100, L501.9985 #### [facility] [address] [place], [address] Magnesiumon 11-07-2024 Magnesium [Mass/Vol] 2.1 mg/dL Normal 1.5-2.2 [facility] Comment on above: Order Comment: 134 Performed By: #### L 500.4050, L506.1000, L100.0100, L501.9985 #### [facility] [address] [place], [address] Basic Metabolic Profile (BMP )on 11-06-2024 BUN Normal 4-19 [facility] Comment on above: Order Comment: 216 Result Comment: QNS UTO X1 Performed By: #### L 501.080 #### [facility] [address] [place], [address] BUN/CRE Normal 10-20 [facility] Comment on above: Order Comment: 216 Result Comment: QNS UTO X1 Performed By: #### L 501.080 #### [facility] [address] [place], [address] Calcium Normal 7.6-11.0 [facility] Comment on above: Order Comment: 216 Result Comment: QNS UTO X1 Performed By: #### L 501.080 #### [facility] [address] [place], [address] CL Normal 98-108 [facility] Comment on above: Order Comment: 216 Result Comment: QNS UTO X1 Performed By: #### L 501.080 #### [facility] [address] [place], [address] CO2 Normal 21.0-32.0 [facility] Comment on above: Order Comment: 216 Result Comment: QNS UTO X1 Performed By: #### L 501.080 #### [facility] [address] [place], [address] CREAT,SERUM Normal 0.70-1.20 [facility] Comment on above: Order Comment: 216 Result Comment: QNS UTO X1 Performed By: #### L 501.080 #### [facility] [address] [place], [address] eGFR Normal >60 [facility] Comment on above: Order Comment: 216 Result Comment: QNS UTO X1 Performed By: #### L 501.080 #### [facility] [address] [place], [address] GAP Normal 5-15 [facility] Comment on above: Order Comment: 216 Result Comment: QNS UTO X1 Performed By: #### L 501.080 #### [facility] [address] [place], [address] GLU Normal 70-99 [facility] Comment on above: Order Comment: 216 Result Comment: QNS UTO X1 Performed By: #### L 501.080 #### [facility] [address] [place], [address] Potassium Normal 3.3-5.1 [facility] Comment on above: Order Comment: 216 Result Comment: QNS UTO X1 Performed By: #### L 501.080 #### [facility] [address] [place], [address] Basic Metabolic Profile (BMP) Normal 133-145 [facility] Comment on above: Order Comment: 216 Result Comment: QNS UTO X1 Performed By: #### L 501.080 #### [facility] [address] [place], [address] CBC W/Diff, Automatedon 06-0 Absolute Neut Normal 2.0-7.7 [facility] Comment on above: Order Comment: 216 Result Comment: QNS UTO X1 Performed By: #### L 501.080 #### [facility] [address] [place], [address] HCT Normal 37-47 [facility] Comment on above: Order Comment: 216 Result Comment: QNS UTO X1 Performed By: #### L 501.080 #### [facility] [address] [place], [address] HGB Normal 12.0-15.0 [facility] Comment on above: Order Comment: 216 Result Comment: QNS UTO X1 Performed By: #### L 501.080 #### [facility] [address] [place], [address] MCH Normal 27.0-32.0 [facility] Comment on above: Order Comment: 216 Result Comment: QNS UTO X1 Performed By: #### L 501.080 #### [facility] [address] [place], [address] MCHC Normal 32-36 [facility] Comment on above: Order Comment: 216 Result Comment: QNS UTO X1 Performed By: #### L 501.080 #### [facility] [address] [place], [address] MCV Normal 81-99 [facility] Comment on above: Order Comment: 216 Result Comment: QNS UTO X1 Performed By: #### L 501.080 #### [facility] [address] [place], [address] NEUT% Normal 47-70 [facility] Comment on above: Order Comment: 216 Result Comment: QNS UTO X1 Performed By: #### L 501.080 #### [facility] [address] [place], [address] PLT Normal 150-450 [facility] Comment on above: Order Comment: 216 Result Comment: QNS UTO X1 Performed By: #### L 501.080 #### [facility] [address] [place], [address] RBC Normal 4.2-5.4 [facility] Comment on above: Order Comment: 216 Result Comment: QNS UTO X1 Performed By: #### L 501.080 #### [facility] [address] [place], [address] RDW CV Normal 11.6-14.6 [facility] Comment on above: Order Comment: 216 Result Comment: QNS UTO X1 Performed By: #### L 501.080 #### [facility] [address] [place], [address] RDW SD Normal 35.1-43.9 [facility] Comment on above: Order Comment: 216 Result Comment: QNS UTO X1 Performed By: #### L 501.080 #### [facility] [address] [place], [address] WBC Normal 4.4-11.0 [facility] Comment on above: Order Comment: 216 Result Comment: QNS UTO X1 Performed By: #### L 501.080 #### [facility] [address] [place], [address] Lamotrigine (Lamictal) Level on 11-02-2024 LAMOTRIGINE 8.5 ug/mL Normal 2.0-20.0 [facility] Comment on above: Order Comment: 134 Result Comment: Dete ction Limit = 1.0 Performed at: [address] [id number] Accountancy Professor: Cody Llanos MD, Phone: [phone] Performed By: #### L 500.4050, L506.1000, L100.0100, L501.4453 #### [facility] [address] [place], [address] Trileptal-Oxcarbazepineon OXCARBAZEPINE 5 ug/mL Low 10-35 [facility] Comment on above: Order Comment: 134 Result Comment: This test was developed and its performance characteristics determined by [employer] It has not been cleared or approved by the Food and Drug Administration. Detection Limit = 1 Performed By: #### L 500.4050, L506.1000, L100.0100, L501.9985 #### [facility] [address] [place], [address] CRPon 11-01-2024 C-REACTIVE PROT 14.10 mg/L High 0.0-3.0 [facility] Comment on above: Performed By: #### L 503.0106 #### [facility] [address] [place], [address] Uric Acidon 11-01-2024 URIC 5.6 mg/dL Normal 2.6-6.0 [facility] Comment on above: Result Comment: The drugs N-Acetylcysteine and Metamizole may falsely depress this assay. Performed By: #### L 503.0106 #### [facility] [address] [place], [address] Hemoglobin A1con 10-30-2024 HbA1c (Bld) [Mass fraction] 7.1 % High <=5.6 [facility] Comment on above: Order Comment: 134 Result Comment: Norm al < 5.7 % Prediabetic 5.7 - 6.4 % Diabetic >or= 6.5 % Please note range changes. Performed By: #### L 500.4050, L506.1000, L100.0100, L501.9985 #### [facility] [address] [place], [address] Lipid Profileon 10-30-2024 CHOL:HDL 1.80 Normal [facility] Comment on above: Order Comment: 134 Performed By: #### L 500.4050, L506.1000, L100.0100, L501.9985 #### [facility] [address] [place], [address] Cholesterol [Mass/Vol] 99 mg/dL Normal <=200 [facility] Comment on above: Order Comment: 134 Result Comment: Chol esterol level, Desirable <200 mg/dL Borderline high cholesterol 200-239 mg/dL High cholesterol >=240 mg/dL Recommendations of the NCEP Adult Treatment Panel for the following risk-cutoff thresholds for the [place] population. Performed By: #### L 500.4050, L506.1000, L100.0100, L501.9985 #### [facility] [address] [place], [address] Cholesterol in HDL [Mass/Vol] 55 mg/dL Normal [facility] Comment on above: Order Comment: 134 Result Comment: Linda onal Cholesterol Education Program (NCEP) guidelines: <40 mg/dL: Low HDL-cholesterol (major risk factor for CHD) >= 60 mg/dL: High HDL-cholesterol (negative risk factor for CHD) HDL-cholesterol is affected by a number of factors, e.g. smoking, exercise, hormones, sex and age. Performed By: #### L 500.4050, L506.1000, L100.0100, L501.9985 #### [facility] [address] [place], [address] Cholesterol in LDL [Mass/Vol] 34 mg/dL Normal [facility] Comment on above: Order Comment: 134 Result Comment: Bord tluzxz=802-952 mg/dL Higher Zclt=438 mg/dL or greater Performed By: #### L 500.4050, L506.1000, L100.0100, L501.9985 #### [facility] [address] [place], [address] Cholesterol in VLDL [Mass/Vol] 10 mg/dL Normal 5-40 [facility] Comment on above: Order Comment: 134 Performed By: #### L 500.4050, L506.1000, L100.0100, L501.9985 #### [facility] [address] [place], [address] Triglyceride [Mass/Vol] 51 mg/dL Normal [facility] Comment on above: Order Comment: 134 Result Comment: The drugs N-Acetylcysteine and Metamizole may falsely depress this assay. Normal range: <150 mg/dL Borderline High: 150-199 mg/dL High: 200-499 mg/dL Very High: >500 mg/dL Performed By: #### L 500.4050, L506.1000, L100.0100, L501.9985 #### [facility] [address] [place], [address] Vitamin D,25 Hydroxyon 10-30 Vitamin D 25-OH 22.0 ng/mL Low 30-100 [facility] Comment on above: Order Comment: 134 Result Comment: Maricarmen min D Status Deficiency: <20 ng/mL (50nmol/L) Insufficiency: 20-30 ng/mL (50-75 nmol/L) Sufficiency: 30-100 ng/mL (75-250 nmol/L) Toxicity: >100 ng/mL (>250 nmol/L) Performed By: #### L 500.4050, L506.1000, L100.0100, L501.9985 #### [facility] [address] [place], [address] CBC-Complete Blood Cnt No Di ffon 10-25-2024 Erythrocyte distribution width (RBC) [Ratio] 15.7 % High 11.6-14.6 [facility] Comment on above: Order Comment: 134 Performed By: #### L 500.4050, L506.1000, L100.0100, L501.9985 #### [facility] [address] [place], [address] Hematocrit (Bld) [Volume fraction] 39.5 % Normal 37-47 [facility] Comment on above: Order Comment: 134 Performed By: #### L 500.4050, L506.1000, L100.0100, L501.9985 #### [facility] [address] [place], [address] Hemoglobin (Bld) [Mass/Vol] 13.0 g/dL Normal 12.0-15.0 [facility] Comment on above: Order Comment: 134 Performed By: #### L 500.4050, L506.1000, L100.0100, L501.9985 #### [facility] [address] [place], [address] MCH (RBC) [Entitic mass] 29.1 pg Normal 27.0-32.0 [facility] Comment on above: Order Comment: 134 Performed By: #### L 500.4050, L506.1000, L100.0100, L501.9985 #### [facility] [address] [place], [address] MCHC (RBC) [Mass/Vol] 32.9 g/dL Normal 32-36 [facility] Comment on above: Order Comment: 134 Performed By: #### L 500.4050, L506.1000, L100.0100, [id number] #### [facility] [address] [place], [address] MCV (RBC) [Entitic vol] 88.4 fL Normal 81-99 [facility] Comment on above: Order Comment: 134 Performed By: #### L 500.4050, L506.1000, L100.0100, L501.9985 #### [facility] [address] [place], [address] Platelet mean volume (Bld) [Entitic vol] 11.9 fL Normal 6.2-12.0 [facility] Comment on above: Order Comment: 134 Performed By: #### L 500.4050, L506.1000, L100.0100, L501.9985 #### [facility] [address] [place], [address] Platelets (Bld) [#/Vol] 104 10*3/uL Low 150-450 [facility] Comment on above: Order Comment: 134 Performed By: #### L 500.4050, L506.1000, L100.0100, L501.9985 #### [facility] [address] [place], [address] RBC (Bld) [#/Vol] 4.47 10*6/uL Normal 4.2-5.4 [facility] Comment on above: Order Comment: 134 Performed By: #### L 500.4050, L506.1000, L100.0100, L501.9985 #### [facility] [address] [place], [address] RDW SD 51.5 fl High 35.1-43.9 [facility] Comment on above: Order Comment: 134 Performed By: #### L 500.4050, L506.1000, L100.0100, [id number] #### [facility] [address] [place], [address] WBC (Bld) [#/Vol] 6.3 10*3/uL Normal 4.4-11.0 [facility] Comment on above: Order Comment: 134 Performed By: #### L 500.4050, L506.1000, L100.0100, L501.9985 #### [facility] [address] [place], [address] Comprehensive Metabolic Prof cton 10-25-2024 Albumin [Mass/Vol] 3.8 g/dL Normal 3.4-4.8 [facility] Comment on above: Order Comment: 134 Performed By: #### L 500.4050, L506.1000, L100.0100, L501.9985 #### [facility] [address] [place], [address] Albumin/Globulin [Mass ratio] 0.9 {ratio} Normal 0.9-2.4 [facility] Comment on above: Order Comment: 134 Performed By: #### L 500.4050, L506.1000, L100.0100, L501.9985 #### [facility] [address] [place], [address] ALK PHOS 117 U/L High 35-104 [facility] Comment on above: Order Comment: 134 Performed By: #### L 500.4050, L506.1000, L100.0100, L501.9985 #### [facility] [address] [place], [address] ALT [Catalytic activity/Vol] 37 U/L High <=34 [facility] Comment on above: Order Comment: 134 Performed By: #### L 500.4050, L506.1000, L100.0100, L501.9985 #### [facility] [address] [place], [address] AST [Catalytic activity/Vol] 44 U/L High <=31 [facility] Comment on above: Order Comment: 134 Performed By: #### L 500.4050, L506.1000, L100.0100, L501.9985 #### [facility] [address] [place], [address] Bilirubin [Mass/Vol] 0.50 mg/dL Normal 0.00-1.30 [facility] Comment on above: Order Comment: 134 Performed By: #### L 500.4050, L506.1000, L100.0100, L501.9985 #### [facility] [address] [place], [address] BUN/CRE 25.5 RATIO High 10-20 [facility] Comment on above: Order Comment: 134 Performed By: #### L 500.4050, L506.1000, L100.0100, [id number] #### [facility] [address] [place], [address] Calcium [Mass/Vol] 9.4 mg/dL Normal 7.6-11.0 [facility] Comment on above: Order Comment: 134 Performed By: #### L 500.4050, L506.1000, L100.0100, L501.9985 #### [facility] [address] [place], [address] Chloride [Moles/Vol] 101 mmol/L Normal 98-108 [facility] Comment on above: Order Comment: 134 Performed By: #### L 500.4050, L506.1000, L100.0100, [id number] #### [facility] [address] [place], [address] CO2 [Moles/Vol] 23.5 mmol/L Normal 21.0-32.0 [facility] Comment on above: Order Comment: 134 Performed By: #### L 500.4050, L506.1000, L100.0100, L501.9985 #### [facility] [address] [place], [address] Creatinine [Mass/Vol] 0.93 mg/dL Normal 0.70-1.20 [facility] Comment on above: Order Comment: 134 Performed By: #### L 500.4050, L506.1000, L100.0100, [id number] #### [facility] [address] [place], [address] GAP 10 Normal 5-15 [facility] Comment on above: Order Comment: 134 Performed By: #### L 500.4050, L506.1000, L100.0100, L501.9985 #### [facility] [address] [place], [address] GFR/1.73 sq M.predicted among non-blacks MDRD (S/P/Bld) [Vol rate/Area] 65 mL/min/{1.73_m2} Normal >60 [facility] Comment on above: Order Comment: 134 Result Comment: mL/m in/1.73m2 CKD-EPI Creatinine Equation (2020) Performed By: #### L 500.4050, L506.1000, L100.0100, L501.9985 #### [facility] [address] [place], [address] Globulin (S) [Mass/Vol] 4.4 g/dL High 2.2-4.2 [facility] Comment on above: Order Comment: 134 Performed By: #### L 500.4050, L506.1000, L100.0100, L501.9985 #### [facility] [address] [place], [address] Glucose [Mass/Vol] 147 mg/dL High 70-99 [facility] Comment on above: Order Comment: 134 Performed By: #### L 500.4050, L506.1000, L100.0100, L501.9985 #### [facility] [address] [place], [address] Potassium [Moles/Vol] 4.7 mmol/L Normal 3.3-5.1 [facility] Comment on above: Order Comment: 134 Performed By: #### L 500.4050, L506.1000, L100.0100, L501.9985 #### [facility] [address] [place], [address] Sodium [Moles/Vol] 134 mmol/L Normal 133-145 [facility] Comment on above: Order Comment: 134 Performed By: #### L 500.4050, L506.1000, L100.0100, L501.9985 #### [facility] [address] [place], [address] T PROT 8.2 g/dL Normal 5.9-8.4 [facility] Comment on above: Order Comment: 134 Performed By: #### L 500.4050, L506.1000, L100.0100, L501.9985 #### [facility] [address] [place], [address] Urea nitrogen [Mass/Vol] 24 mg/dL High - [facility] Comment on above: Order Comment: 134 Performed By: #### L 500.4050, L506.1000, L100.0100, L501.9985 #### [facility] [address] [place], [address] Urine Cultureon 10-14-2024 [facility] Urine Culture Urine Culture Escherichia coli Wiley Count 80,000-100,000 Escherichia coli: REACTION Ampicillin Islt [...] TMP SMX Islt TRANG <=20 S Normal [facility] Comment on above: Performed By: #### L 500.4050, L506.1000, L100.0100, L501.9985 #### [facility] [address] [place], [address] Basic Metabolic Profile (BMP )on 10-12-2024 BUN Normal - [facility] Comment on above: Result Comment: Canc elled via OM: Order cancelled - Patient discharged Performed By: #### L 501.080 #### [facility] [address] [place], [address] BUN/CRE Normal - [facility] Comment on above: Result Comment: Canc elled via OM: Order cancelled - Patient discharged Performed By: #### L 501.080 #### [facility] [address] [place], [address] Calcium Normal 7.6-11.0 [facility] Comment on above: Result Comment: Canc elled via OM: Order cancelled - Patient discharged Performed By: #### L 501.080 #### [facility] [address] [place], [address] CL Normal 98-108 [facility] Comment on above: Result Comment: Canc elled via OM: Order cancelled - Patient discharged Performed By: #### L 501.080 #### [facility] [address] [place], [address] CO2 Normal 21.0-32.0 [facility] Comment on above: Result Comment: Canc elled via OM: Order cancelled - Patient discharged Performed By: #### L 501.080 #### [facility] [address] [place], [address] CREAT,SERUM Normal 0.70-1.20 [facility] Comment on above: Result Comment: Canc elled via OM: Order cancelled - Patient discharged Performed By: #### L 501.080 #### [facility] [address] [place], [address] eGFR Normal >60 [facility] Comment on above: Result Comment: Canc elled via OM: Order cancelled - Patient discharged Performed By: #### L 501.080 #### [facility] [address] [place], [address] GAP Normal 5-15 [facility] Comment on above: Result Comment: Canc elled via OM: Order cancelled - Patient discharged Performed By: #### L 501.080 #### [facility] [address] [place], [address] GLU Normal 70-99 [facility] Comment on above: Result Comment: Canc elled via OM: Order cancelled - Patient discharged Performed By: #### L 501.080 #### [facility] [address] [place], [address] Potassium Normal 3.3-5.1 [facility] Comment on above: Result Comment: Canc elled via OM: Order cancelled - Patient discharged Performed By: #### L 501.080 #### [facility] [address] [place], [address] Basic Metabolic Profile (BMP) Normal 133-145 [facility] Comment on above: Result Comment: Canc elled via OM: Order cancelled - Patient discharged Performed By: #### L 501.080 #### [facility] [address] [place], [address] CBC W/Diff, Automatedon 05-0 9-2024 Absolute Neut Normal 2.0-7.7 [facility] Comment on above: Result Comment: Canc elled via OM: Order cancelled - Patient discharged Performed By: #### L 501.080 #### [facility] [address] [place], [address] HCT Normal 37-47 [facility] Comment on above: Result Comment: Canc elled via OM: Order cancelled - Patient discharged Performed By: #### L 501.080 #### [facility] [address] [place], [address] HGB Normal 12.0-15.0 [facility] Comment on above: Result Comment: Canc elled via OM: Order cancelled - Patient discharged Performed By: #### L 501.080 #### [facility] [address] [place], [address] MCH Normal 27.0-32.0 [facility] Comment on above: Result Comment: Canc elled via OM: Order cancelled - Patient discharged Performed By: #### L 501.080 #### [facility] [address] [place], [address] MCHC Normal 32-36 [facility] Comment on above: Result Comment: Canc elled via OM: Order cancelled - Patient discharged Performed By: #### L 501.080 #### [facility] [address] [place], [address] MCV Normal 81-99 [facility] Comment on above: Result Comment: Canc elled via OM: Order cancelled - Patient discharged Performed By: #### L 501.080 #### [facility] [address] [place], [address] NEUT% Normal 47-70 [facility] Comment on above: Result Comment: Canc elled via OM: Order cancelled - Patient discharged Performed By: #### L 501.080 #### [facility] [address] [place], [address] PLT Normal 150-450 [facility] Comment on above: Result Comment: Canc elled via OM: Order cancelled - Patient discharged Performed By: #### L 501.080 #### [facility] [address] [place], [address] RBC Normal 4.2-5.4 [facility] Comment on above: Result Comment: Canc elled via OM: Order cancelled - Patient discharged Performed By: #### L 501.080 #### [facility] [address] [place], [address] RDW CV Normal 11.6-14.6 [facility] Comment on above: Result Comment: Canc elled via OM: Order cancelled - Patient discharged Performed By: #### L 501.080 #### [facility] [address] [place], [address] RDW SD Normal 35.1-43.9 [facility] Comment on above: Result Comment: Canc elled via OM: Order cancelled - Patient discharged Performed By: #### L 501.080 #### [facility] [address] [place], [address] WBC Normal 4.4-11.0 [facility] Comment on above: Result Comment: Canc elled via OM: Order cancelled - Patient discharged Performed By: #### L 501.080 #### [facility] [address] [place], [address] Absolute lymphocyte countOrd ered By: Tyrell Page on 10-11-2024 Lymphocytes Auto (Unsp spec) [#/Vol] 1.20 10*3/uL 0.83-4.51 [facility] Absolute neutrophil countOrd ered By: Tyrell Page on 10-11-2024 Neutrophils (Bld) [#/Vol] 2.6 10*3/uL 2.0-7.7 [facility] Anion gap in Serum or Plasma Ordered By: Tyrell Page on 10-11-2024 Anion gap [Moles/Vol] 10 mmol/L 5-15 [facility] Automated lymphocyte count a s percentage of total leukocytesOrdered By: Tyrell Page on 10-11-2024 Lymphocytes/100 WBC Auto (Unsp spec) 26.8 % 19-41 [facility] BUN/creatinine ratioOrdered By: Tyrell Page on 10-11-2024 Urea nitrogen/Creatinine [Mass ratio] 28.3 mg/mg High 10-20 [facility] Basic Metabolic Profile (BMP )on 10-11-2024 BUN/CRE 28.3 RATIO High 10-20 [facility] Comment on above: Performed By: #### L 501.080 #### [facility] [address] [place], [address] Calcium [Mass/Vol] 9.2 mg/dL Normal 7.6-11.0 [facility] Comment on above: Performed By: #### L 501.080 #### [facility] [address] [place], [address] Chloride [Moles/Vol] 108 mmol/L Normal 98-108 [facility] Comment on above: Performed By: #### L 501.080 #### [facility] [address] [place], [address] CO2 [Moles/Vol] 20.7 mmol/L Low 21.0-32.0 [facility] Comment on above: Performed By: #### L 501.080 #### [facility] [address] [place], [address] Creatinine [Mass/Vol] 0.76 mg/dL Normal 0.70-1.20 [facility] Comment on above: Performed By: #### L 501.080 #### [facility] [address] [place], [address] ECRCL 89.89 ml/min Normal 50-250 [facility] Comment on above: Performed By: #### L 501.080 #### [facility] [address] [place], [address] GAP 10 Normal 5-15 [facility] Comment on above: Performed By: #### L 501.080 #### [facility] [address] [place], [address] GFR/1.73 sq M.predicted among non-blacks MDRD (S/P/Bld) [Vol rate/Area] 84 mL/min/{1.73_m2} Normal >60 [facility] Comment on above: Result Comment: mL/m in/1.73m2 CKD-EPI Creatinine Equation (2020) Performed By: #### L 501.080 #### [facility] [address] [place], [address] Glucose [Mass/Vol] 131 mg/dL High 70-99 [facility] Comment on above: Performed By: #### L 501.080 #### [facility] [address] [place], [address] Potassium [Moles/Vol] 3.9 mmol/L Normal 3.3-5.1 [facility] Comment on above: Performed By: #### L 501.080 #### [facility] [address] [place], [address] Sodium [Moles/Vol] 139 mmol/L Normal 133-145 [facility] Comment on above: Performed By: #### L 501.080 #### [facility] [address] [place], [address] Urea nitrogen [Mass/Vol] 21 mg/dL High 4-19 [facility] Comment on above: Performed By: #### L 501.080 #### [facility] [address] [place], [address] Basophil percentageOrdered B y: Tyrell Page on 10-11-2024 Basophils/100 WBC (Bld) 0.7 % 0-1 [facility] Bedside Glucoseon 10-11-2024 FINGERSTICK GLU 137 mg/dL High 74-106 [facility] Comment on above: Result Comment: ALINA GABRIEL OF PATIENT CARE PER NURSING PROTOCOL Performed By: #### L 500.4050, L506.1000, L100.0100, L501.9985 #### [facility] [address] [place], [address] CBC W/Diff, Automatedon 05-0 PLT EST SLT DEC Normal ADEQ [facility] Comment on above: Performed By: #### L 500.4050, L506.1000, L100.0100, L501.9985 #### [facility] [address] [place], [address] Carbon dioxide, total [Moles /volume] in Central venous bloodOrdered By: Tyrell Page on 10-11-2024 CO2 [Moles/Vol] 20.7 mmol/L Low 21.0-32.0 [facility] Chloride assayOrdered By: Arabella Page on 10-11-2024 Chloride [Moles/Vol] 108 mmol/L 98-108 [facility] Eosinophil percentageOrdered By: Tyrell Page on 10-11-2024 Eosinophils/100 WBC (Bld) 5.1 % High 0-5 [facility] Erythrocyte distribution wid th ratioOrdered By: Tyrell Page on 10-11-2024 Erythrocyte distribution width (RBC) [Ratio] 16.0 % High 11.6-14.6 [facility] Erythrocyte distribution wid th standard deviationOrdered By: Tyrell Page on 10-11-2024 Erythrocyte distribution width (RBC) [Ratio] 50.8 fl High 35.1-43.9 [facility] Glomerular filtration rate ( GFR) estimation/1.73 sq m using serum, plasma, or whole bOrdered By: Tyrell Page on 10-11-2024 GFR/1.73 sq M.predicted among non-blacks MDRD (S/P/Bld) [Vol rate/Area] 84 mL/min/{1.73_m2} >60 [facility] Comment on above: mL/min/1.73m2 CKD-EP I Creatinine Equation (2020) [facility] deOrdered By: Tyrell Page on 10-11-2024 Glucose [Mass/Vol] 137 mg/dL High 74-106 [facility] Comment on above: MANAGEMENT OF PATIEN T CARE PER NURSING PROTOCOL Hematocrit Auto (Bld) [Volum e fraction]Ordered By: Tyrell Page on 10-11-2024 Hematocrit (Bld) [Volume fraction] 34.0 % Low 37-47 [facility] Hemoglobin measurementOrdere d By: Tyrell Page on 10-11-2024 Hemoglobin (Bld) [Mass/Vol] 11.3 g/dL Low 12.0-15.0 [facility] Immature granulocytes/100 WB C Auto (Bld)Ordered By: Tyrell Page on 10-11-2024 Immature granulocytes/100 WBC (Bld) 0.200 % 0.0-0.9 [facility] Comment on above: IG% - Immature Granu locytes (promyelocytes, myelocytes and metamyelocytes) > 1% indicates that a LEFT SHIFT is Present. MCV (mean corpuscular volume ) determinationOrdered By: Tyrell Page on 05-08-2025 MCV (RBC) [Entitic vol] 86.7 fL 81-99 [facility] Magnesiumon 10-11-2024 Magnesium [Mass/Vol] 2.1 mg/dL Normal 1.5-2.2 [facility] Comment on above: Performed By: #### L 501.080 #### [facility] [address] [place], [place], [id number] Magnesium measurement (mass/ volume)Ordered By: Tyrell Page on 10-11-2024 Magnesium (Unsp spec) [Mass/Vol] 2.1 mg/dL 1.5-2.2 [facility] Mean corpuscular hemoglobin (MCH) determinationOrdered By: Tyrell Page on 10-11-2024 MCH (RBC) [Entitic mass] 28.8 pg 27.0-32.0 [facility] Mean corpuscular hemoglobin concentration (MCHC) determinationOrdered By: Tyrell Page on 10-11-2024 MCHC (RBC) [Mass/Vol] 33.2 g/dL 32-36 [facility] Mean platelet volume determi nationOrdered By: Tyrell Page on 10-11-2024 Platelet mean volume (Bld) [Entitic vol] 11.1 fL 6.2-12.0 [facility] Monocyte percentageOrdered B y: Tyrell Page on 10-11-2024 Monocytes/100 WBC (Bld) 9.8 % 0-10 [facility] Neutrophil percentageOrdered By: Tyrell Page on 10-11-2024 Neutrophils/100 WBC (Bld) 57.4 % 47-70 [facility] Nucleated red blood cell per centageOrdered By: Tyrell Page on 10-11-2024 Nucleated RBC/100 WBC (Bld) [Ratio] 0 % 0-5 [facility] Phosphoruson 10-11-2024 Phosphate [Mass/Vol] 3.7 mg/dL Normal 2.7-4.5 [facility] Comment on above: Performed By: #### L 501.080 #### [facility] [address] [place], [place], [address] Platelet countOrdered By: Arabella Page on 10-11-2024 Platelets (Bld) [#/Vol] 95 10*3/uL Low 150-450 [facility] Platelet estimateOrdered By: Tyrell Page on 10-11-2024 Platelets LM Ql (Bld) SLT DEC ADEQ [facility] Potassium measurement (mass/ volume)Ordered By: Tyrell Page on 10-11-2024 Potassium (Unsp spec) [Mass/Vol] 3.9 mmol/L 3.3-5.1 [facility] RBC Auto (Bld) [#/Vol]Ordere d By: Tyrell Page on 10-11-2024 RBC (Bld) [#/Vol] 3.92 10*6/uL Low 4.2-5.4 [facility] Serum creatinine measurement (mass/volume)Ordered By: Tyrell Page on 10-11-2024 Creatinine [Mass/Vol] 0.76 mg/dL 0.70-1.20 [facility] Serum glucose measurement (m ass/volume)Ordered By: Tyrell Page on 10-11-2024 Glucose [Mass/Vol] 131 mg/dL High 70-99 [facility] Serum or plasma calcium kim urement (mass/volume)Ordered By: Tyrell Page on 10-11-2024 Calcium [Mass/Vol] 9.2 mg/dL 7.6-11.0 [facility] Serum or plasma urea nitroge n measurement (mass/volume)Ordered By: Tyrell Page on 10-11-2024 Urea nitrogen [Mass/Vol] 21 mg/dL High 4-19 [facility] Sodium levelOrdered By: Nikunj Page on 10-11-2024 Sodium [Moles/Vol] 139 mmol/L 133-145 [facility] White blood cell (WBC) count Ordered By: Tyrell Page on 10-11-2024 WBC (Bld) [#/Vol] 4.5 10*3/uL 4.4-11.0 [facility] Bedside Glucoseon 10-10-2024 FINGERSTICK GLU 159 mg/dL High 74-106 [facility] Comment on above: Result Comment: ALINA GABRIEL OF PATIENT CARE PER NURSING PROTOCOL Performed By: #### L 500.4050, L506.1000, L100.0100, L501.9985 #### [facility] [address] [place], [address] FINGERSTICK GLU 196 mg/dL High 74-106 [facility] Comment on above: Result Comment: ALINA GEMENT OF PATIENT CARE PER NURSING PROTOCOL Performed By: #### L 500.4050, L506.1000, L100.0100, L501.9985 #### [facility] [address] [place], [address] FINGERSTICK GLU 165 mg/dL High 74-106 [facility] Comment on above: Result Comment: ALINA GEMENT OF PATIENT CARE PER NURSING PROTOCOL Performed By: #### L 501.080 #### [facility] [address] [place], [address] FINGERSTICK GLU 159 mg/dL High -106 [facility] Comment on above: Result Comment: ALINA GEMENT OF PATIENT CARE PER NURSING PROTOCOL Performed By: #### L 500.4050, L506.1000, L100.0100, L501.9985 #### [facility] [address] [place], [address] FINGERSTICK GLU 148 mg/dL High 74-106 [facility] Comment on above: Result Comment: ALINA GEMENT OF PATIENT CARE PER NURSING PROTOCOL Performed By: #### L 501.080 #### [facility] [address] [place], [address] Bilirubin, totalOrdered By: Missael Lomeli on 10-10-2024 Bilirubin [Mass/Vol] 0.68 mg/dL 0.00-1.30 [facility] CBC W/Diff, Automatedon Absolute Lymph 1.03 X10 3/uL Normal 0.83-4.51 [facility] Comment on above: Performed By: #### L 500.4050, L506.1000, L501.9985, L100.0100 #### [facility] [address] [place], [address] Absolute Neut 3.4 X10 3/uL Normal 2.0-7.7 [facility] Comment on above: Performed By: #### L 500.4050, L506.1000, L501.9985, L100.0100 #### [facility] [address] [place], [address] Basophils/100 WBC (Bld) 0.6 % Normal 0-1 [facility] Comment on above: Performed By: #### L 500.4050, L506.1000, L501.9985, L100.0100 #### [facility] [address] [place], [address] Eosinophils/100 WBC (Bld) 5.1 % High 0-5 [facility] Comment on above: Performed By: #### L 500.4050, L506.1000, L501.9985, L100.0100 #### [facility] [address] [place], [address] Erythrocyte distribution width (RBC) [Ratio] 15.9 % High 11.6-14.6 [facility] Comment on above: Performed By: #### L 500.4050, L506.1000, L501.9985, L100.0100 #### [facility] [address] [place], [address] Hematocrit (Bld) [Volume fraction] 37.6 % Normal 37-47 [facility] Comment on above: Performed By: #### L 500.4050, L506.1000, L501.9985, L100.0100 #### [facility] [address] [place], [address] Hemoglobin (Bld) [Mass/Vol] 12.3 g/dL Normal 12.0-15.0 [facility] Comment on above: Performed By: #### L 500.4050, L506.1000, L501.9985, L100.0100 #### [facility] [address] [place], [address] IG% 0.200 Normal 0.0-0.9 [facility] Comment on above: Result Comment: IG% - Immature Granulocytes (promyelocytes, myelocytes and metamyelocytes) > 1% indicates that a LEFT SHIFT is Present. Performed By: #### L 500.4050, L506.1000, L501.9985, L100.0100 #### [facility] [address] [place], [address] Lymphocytes/100 WBC (Bld) 19.6 % Normal 19-41 [facility] Comment on above: Performed By: #### L 500.4050, L506.1000, L501.9985, L100.0100 #### [facility] [address] [place], [address] MCH (RBC) [Entitic mass] 28.8 pg Normal 27.0-32.0 [facility] Comment on above: Performed By: #### L 500.4050, L506.1000, L501.9985, L100.0100 #### [facility] [address] [place], [address] MCHC (RBC) [Mass/Vol] 32.7 g/dL Normal 32-36 [facility] Comment on above: Performed By: #### L 500.4050, L506.1000, L501.9985, L100.0100 #### [facility] [address] [place], [address] MCV (RBC) [Entitic vol] 88.1 fL Normal 81-99 [facility] Comment on above: Performed By: #### L 500.4050, L506.1000, L501.9985, L100.0100 #### [facility] [address] [place], [address] Monocytes/100 WBC (Bld) 9.1 % Normal 0-10 [facility] Comment on above: Performed By: #### L 500.4050, L506.1000, L501.9985, L100.0100 #### [facility] [address] [place], [address] Neutrophils/100 WBC (Bld) 65.4 % Normal 47-70 [facility] Comment on above: Performed By: #### L 500.4050, L506.1000, L501.9985, L100.0100 #### [facility] [address] [place], [address] Nucleated RBC (Bld) [#/Vol] 0 10*3/uL Normal 0-5 [facility] Comment on above: Performed By: #### L 500.4050, L506.1000, L501.9985, L100.0100 #### [facility] [address] [place], [address] Platelet mean volume (Bld) [Entitic vol] 11.7 fL Normal 6.2-12.0 [facility] Comment on above: Performed By: #### L 500.4050, L506.1000, L501.9985, L100.0100 #### [facility] [address] [place], [address] Platelets (Bld) [#/Vol] 100 10*3/uL Low 150-450 [facility] Comment on above: Performed By: #### L 500.4050, L506.1000, L501.9985, L100.0100 #### [facility] [address] [place], [address] RBC (Bld) [#/Vol] 4.27 10*6/uL Normal 4.2-5.4 [facility] Comment on above: Performed By: #### L 500.4050, L506.1000, L501.9985, L100.0100 #### [facility] [address] [place], [address] RDW SD 51.4 fl High 35.1-43.9 [facility] Comment on above: Performed By: #### L 500.4050, L506.1000, L501.9985, L100.0100 #### [facility] [address] [place], [address] WBC (Bld) [#/Vol] 5.3 10*3/uL Normal 4.4-11.0 [facility] Comment on above: Performed By: #### L 500.4050, L506.1000, L501.9985, L100.0100 #### [facility] [address] [place], [address] Calculated very low density lipoprotein (VLDL) cholesterol measurementOrdered By: Missael Lomeli on 10-10-2024 Calculated very low density lipoprotein (VLDL) cholesterol measurement 16 mg/dL 5-40 [facility] Comprehensive Metabolic Prof ilon 10-10-2024 Albumin [Mass/Vol] 3.5 g/dL Normal 3.4-4.8 [facility] Comment on above: Performed By: #### L 503.0106 #### [facility] [address] [place], [address] Albumin/Globulin [Mass ratio] 1.0 {ratio} Normal 0.9-2.4 [facility] Comment on above: Performed By: #### L 503.0106 #### [facility] [address] [place], [address] ALK PHOS 122 U/L High 35-104 [facility] Comment on above: Performed By: #### L 503.0106 #### [facility] [address] [place], [address] ALT [Catalytic activity/Vol] 23 U/L Normal <=34 [facility] Comment on above: Performed By: #### L 503.0106 #### [facility] [address] [place], [address] AST [Catalytic activity/Vol] 37 U/L High <=31 [facility] Comment on above: Result Comment: Hemo lysis present, Results??could be affected. ?? Performed By: #### L 503.0106 #### [facility] [address] [place], [address] Bilirubin [Mass/Vol] 0.68 mg/dL Normal 0.00-1.30 [facility] Comment on above: Performed By: #### L 503.0106 #### [facility] [address] [place], [address] BUN/CRE 25.4 RATIO High 10-20 [facility] Comment on above: Performed By: #### L 503.0106 #### [facility] [address] [place], [address] Calcium [Mass/Vol] 8.9 mg/dL Normal 7.6-11.0 [facility] Comment on above: Performed By: #### L 503.0106 #### [facility] [address] [place], [address] Chloride [Moles/Vol] 106 mmol/L Normal 98-108 [facility] Comment on above: Performed By: #### L 503.0106 #### [facility] [address] [place], [address] CO2 [Moles/Vol] 19.0 mmol/L Low 21.0-32.0 [facility] Comment on above: Performed By: #### L 503.0106 #### [facility] [address] [place], [address] Creatinine [Mass/Vol] 0.78 mg/dL Normal 0.70-1.20 [facility] Comment on above: Performed By: #### L 503.0106 #### [facility] [address] [place], [address] ECRCL 88.83 ml/min Normal 50-250 [facility] Comment on above: Performed By: #### L 503.0106 #### [facility] [address] [place], [address] GAP 13 Normal 5-15 [facility] Comment on above: Performed By: #### L 503.0106 #### [facility] [address] [place], [address] GFR/1.73 sq M.predicted among non-blacks MDRD (S/P/Bld) [Vol rate/Area] 81 mL/min/{1.73_m2} Normal >60 [facility] Comment on above: Result Comment: mL/m in/1.73m2 CKD-EPI Creatinine Equation (2020) Performed By: #### L 503.0106 #### [facility] [address] [place], [address] Globulin (S) [Mass/Vol] 3.7 g/dL Normal 2.2-4.2 [facility] Comment on above: Performed By: #### L 503.0106 #### [facility] [address] [place], [address] Glucose [Mass/Vol] 151 mg/dL High 70-99 [facility] Comment on above: Performed By: #### L 503.0106 #### [facility] [address] [place], [address] Potassium [Moles/Vol] 4.3 mmol/L Normal 3.3-5.1 [facility] Comment on above: Result Comment: Hemo lysis present, Results??could be affected. ?? Performed By: #### L 503.0106 #### [facility] [address] [place], [address] Sodium [Moles/Vol] 138 mmol/L Normal 133-145 [facility] Comment on above: Performed By: #### L 503.0106 #### [facility] [address] [place], [address] T PROT 7.2 g/dL Normal 5.9-8.4 [facility] Comment on above: Performed By: #### L 503.0106 #### [facility] [address] [place], [address] Urea nitrogen [Mass/Vol] 20 mg/dL High 4-19 [facility] Comment on above: Performed By: #### L 503.0106 #### [facility] [address] [place], [address] Folate [Moles/volume] in Ser um or PlasmaOrdered By: Missael Lomeli on 10-10-2024 Folate [Moles/Vol] 7.20 ng/mL 4.60-34.80 [facility] Comment on above: Hemolysis, Results w ill be affected, Requires Recollection. Folates,Serum (Folic Acid)on 10-10-2024 FOLATES,SERUM 7.20 ng/mL Normal 4.60-34.80 [facility] Comment on above: Order Comment: N Result Comment: Hemo lysis, Results will be affected, Requires Recollection. Performed By: #### L 503.0106 #### [facility] [address] [place], [address] Hemoglobin A1con 10-10-2024 HbA1c (Bld) [Mass fraction] 7.2 % High <=5.6 [facility] Comment on above: Result Comment: Norm al < 5.7 % Prediabetic 5.7 - 6.4 % Diabetic >or= 6.5 % Please note range changes. Performed By: #### L 500.4050, L506.1000, L100.0100, L501.9985 #### [facility] [address] [place], [address] LDL calc ser/plasOrdered By: Missael Lomeli on 10-10-2024 Cholesterol in LDL [Mass/Vol] 31 mg/dL [facility] Comment on above: Wcnuazxjdg=246-000 m g/dL & Higher Wihk=346 mg/dL or greater Laboratory - Chemistry and C hemistry - challengeOrdered By: Missael Lomeli on 10-10-2024 AST [Catalytic activity/Vol] 37 U/L High <32 [facility] Comment on above: Hemolysis present, R esults could be affected. Lipid Profileon 10-10-2024 CHOL:HDL 1.84 Normal [facility] Comment on above: Performed By: #### L 500.4050, L506.1000, L501.9985, L100.0100 #### [facility] [address] [place], [address] Cholesterol [Mass/Vol] 103 mg/dL Normal <=200 [facility] Comment on above: Result Comment: Chol esterol level, Desirable <200 mg/dL Borderline high cholesterol 200-239 mg/dL High cholesterol >=240 mg/dL Recommendations of the NCEP Adult Treatment Panel for the following risk-cutoff thresholds for the [place] population. Performed By: #### L 500.4050, L506.1000, L501.9985, L100.0100 #### [facility] [address] [place], [address] Cholesterol in HDL [Mass/Vol] 56 mg/dL Normal [facility] Comment on above: Result Comment: Linda onal Cholesterol Education Program (NCEP) guidelines: <40 mg/dL: Low HDL-cholesterol (major risk factor for CHD) >= 60 mg/dL: High HDL-cholesterol (negative risk factor for CHD) HDL-cholesterol is affected by a number of factors, e.g. smoking, exercise, hormones, sex and age. Performed By: #### L 500.4050, L506.1000, L501.9985, L100.0100 #### [facility] [address] [place], [address] Cholesterol in LDL [Mass/Vol] 31 mg/dL Normal [facility] Comment on above: Result Comment: Bord usprfb=555-413 mg/dL Higher Koym=125 mg/dL or greater Performed By: #### L 500.4050, L506.1000, L501.9985, L100.0100 #### [facility] [address] [place], [address] Cholesterol in VLDL [Mass/Vol] 16 mg/dL Normal 5-40 [facility] Comment on above: Performed By: #### L 500.4050, L506.1000, L501.9985, L100.0100 #### [facility] [address] [place], [address] Triglyceride [Mass/Vol] 82 mg/dL Normal [facility] Comment on above: Result Comment: The drugs N-Acetylcysteine and Metamizole may falsely depress this assay. Normal range: <150 mg/dL Borderline High: 150-199 mg/dL High: 200-499 mg/dL Very High: >500 mg/dL Performed By: #### L 500.4050, L506.1000, L501.9985, L100.0100 #### [facility] [address] [place], [address] Phosphoruson 10-10-2024 Phosphate [Mass/Vol] 3.3 mg/dL Normal 2.7-4.5 [facility] Comment on above: Performed By: #### L 500.4050, L506.1000, L501.9985, L100.0100 #### [facility] [address] [place], [address] Screening total cholesterol/ high density lipoprotein (HDL) cholesterol ratioOrdered By: Missael Lomeli on 10-10-2024 Cholesterol.total/Cho lesterol in HDL [Mass ratio] 1.84 {ratio} [facility] Serum globulin measurementOr dered By: Missael Lomeli on 10-10-2024 Globulin (S) [Mass/Vol] 3.7 g/dL 2.2-4.2 [facility] Serum or plasma alanine burnette otransferase (ALT) measurementOrdered By: Missael Lomeli on 10-10-2024 ALT [Catalytic activity/Vol] 23 U/L <35 [facility] Serum or plasma albumin kim urement (mass/volume)Ordered By: Missael Lomeli on 10-10-2024 Albumin [Mass/Vol] 3.5 g/dL 3.4-4.8 [facility] Serum or plasma albumin/glob ulin mass ratioOrdered By: Missael Lomeli on 10-10-2024 Albumin/Globulin [Mass ratio] 1.0 {ratio} 0.9-2.4 [facility] Serum or plasma alkaline regina sphatase measurementOrdered By: Missael Lomeli on 10-10-2024 ALP [Catalytic activity/Vol] 122 U/L High 35-104 [facility] Serum or plasma cholesterol in HDL measurement (mass/volume)Ordered By: Missael Lomeli on 10-10-2024 Cholesterol in HDL [Mass/Vol] 56 mg/dL >40 [facility] Comment on above: National Cholesterol Education Program (NCEP) guidelines:<40 mg/dL: Low HDL-cholesterol (major risk factor for CHD)>= 60 mg/dL: High HDL-cholesterol (negative risk factor for CHD)HDL-cholesterol is affected by a number of factors, e.g. smoking, exercise, hormones, sex and age. Serum or plasma cholesterol measurement (mass/volume)Ordered By: Missael Lomeli on 10-10-2024 Cholesterol [Mass/Vol] 103 mg/dL <201 [facility] Comment on above: Cholesterol level, D esirable <200 mg/dLBorderline high cholesterol 200-239 mg/dLHigh cholesterol >=240 mg/dLRecommendations of the NCEP Adult Treatment Panel for the following risk-cutoff thresholds for the [place] population. Total proteinOrdered By: Enrrique Lomeli on 10-10-2024 Protein [Mass/Vol] 7.2 g/dL 5.9-8.4 [facility] Triglycerides measurementOrd ered By: Missael Lomeli on 10-10-2024 Triglyceride [Mass/Vol] 82 mg/dL <199 [facility] Comment on above: The drugs N-Acetylcy steine and Metamizole may falsely depress this assay. Normal range: <150 mg/dLBorderline High: 150-199 mg/dLHigh: 200-499 mg/dLVery High: >500 mg/dL Absolute lymphocyte countOrd ered By: Shayna Malhotra on 10-09-2024 Lymphocytes Auto (Unsp spec) [#/Vol] 0.97 10*3/uL 0.83-4.51 [facility] Absolute neutrophil countOrd ered By: Dany Richardson on 10-09-2024 Neutrophils (Bld) [#/Vol] 4.9 10*3/uL 2.0-7.7 [facility] Absolute neutrophil countOrd ered By: Shayna Malhotra on 10-09-2024 Neutrophils (Bld) [#/Vol] 4.4 10*3/uL 2.0-7.7 [facility] Alcohol, Blood (Medical)-Ser umon 10-09-2024 SERUM ETOH < 10.1 Normal <=10.0 [facility] Comment on above: Result Comment: This test is for medical purposes only. The legal definition of intoxication varies according to local law. Performed By: #### L 503.0106 #### [facility] [address] [place] [address]. [place], [address] Amorphous sediment detection in urine sediment by light microscopyOrdered By: Dany Richardson on 10-09-2024 Amorphous sediment LM Ql (Urine sed) 1+ [facility] Amphetamine detection with 1 000 ng/mL as cutoffOrdered By: Missael Lomeli on 10-09-2024 Amphetamines Screen method >1000 ng/mL Ql (U) Negative < 200 ng/mL [facility] Anion gap in Serum or Plasma Ordered By: Dany Richardson on 10-09-2024 Anion gap [Moles/Vol] 11 mmol/L 10-18 [facility] Anion gap in Serum or Plasma Ordered By: Shayna Malhotra on 10-09-2024 Anion gap [Moles/Vol] 12 mmol/L 10-18 [facility] Automated lymphocyte count a s percentage of total leukocytesOrdered By: Shayna Malhotra on 10-09-2024 Lymphocytes/100 WBC Auto (Unsp spec) 16.1 % Low 19-41 [facility] BUN/creatinine ratioOrdered By: Dany Richardson on 10-09-2024 Urea nitrogen/Creatinine [Mass ratio] 26.6 mg/mg High 10- [facility] BUN/creatinine ratioOrdered By: Shayna Malhotra on 10-09-2024 Urea nitrogen/Creatinine [Mass ratio] 25.9 mg/mg High - [facility] Basophil percentageOrdered B y: Dany Richardson on 10-09-2024 Basophils/100 WBC (Bld) 0.4 % 0-1 [facility] Basophil percentageOrdered B y: Shayna Malhotra on 10-09-2024 Basophils/100 WBC (Bld) 0.5 % 0-1 [facility] Bilirubin Test strip Ql (U)O rdered By: Dany Richardson on 10-09-2024 Bilirubin Ql (U) Negative Negative [facility] Bilirubin, totalOrdered By: Dany Richardson on 10-09-2024 Bilirubin [Mass/Vol] 0.67 mg/dL 0.00-1.30 [facility] Bilirubin, totalOrdered By: Shayna Malhotra on 10-09-2024 Bilirubin [Mass/Vol] 0.62 mg/dL 0.00-1.30 [facility] CBC W/Diff, Automatedon Absolute Lymph 1.11 X10 3/uL Normal 0.83-4.51 [facility] Comment on above: Performed By: #### L 500.4050, L506.1000, L100.0100, L501.9985 #### [facility] [address] [place], [address] Absolute Neut 4.9 X10 3/uL Normal 2.0-7.7 [facility] Comment on above: Performed By: #### L 500.4050, L506.1000, L100.0100, L501.9985 #### [facility] [address] [place], [address] Basophils/100 WBC (Bld) 0.4 % Normal 0-1 [facility] Comment on above: Performed By: #### L 500.4050, L506.1000, L100.0100, L501.9985 #### [facility] [address] [place], [address] Eosinophils/100 WBC (Bld) 2.5 % Normal 0-5 [facility] Comment on above: Performed By: #### L 500.4050, L506.1000, L100.0100, L501.9985 #### [facility] [address] [place], [address] Erythrocyte distribution width (RBC) [Ratio] 15.9 % High 11.6-14.6 [facility] Comment on above: Performed By: #### L 500.4050, L506.1000, L100.0100, L501.9985 #### [facility] [address] [place], [address] Hematocrit (Bld) [Volume fraction] 40.8 % Normal 37-47 [facility] Comment on above: Performed By: #### L 500.4050, L506.1000, L100.0100, L501.9985 #### [facility] [address] [place], [address] Hemoglobin (Bld) [Mass/Vol] 13.5 g/dL Normal 12.0-15.0 [facility] Comment on above: Performed By: #### L 500.4050, L506.1000, L100.0100, L501.9985 #### [facility] [address] [place], [address] IG% 0.400 Normal 0.0-0.9 [facility] Comment on above: Result Comment: IG% - Immature Granulocytes (promyelocytes, myelocytes and metamyelocytes) > 1% indicates that a LEFT SHIFT is Present. Performed By: #### L 500.4050, L506.1000, L100.0100, L501.9985 #### [facility] [address] [place], [address] Lymphocytes/100 WBC (Bld) 16.3 % Low 19-41 [facility] Comment on above: Performed By: #### L 500.4050, L506.1000, L100.0100, L501.9985 #### [facility] [address] [place], [address] MCH (RBC) [Entitic mass] 28.9 pg Normal 27.0-32.0 [facility] Comment on above: Performed By: #### L 500.4050, L506.1000, L100.0100, L501.9985 #### [facility] [address] [place], [address] MCHC (RBC) [Mass/Vol] 33.1 g/dL Normal 32-36 [facility] Comment on above: Performed By: #### L 500.4050, L506.1000, L100.0100, L501.9985 #### [facility] [address] [place], [address] MCV (RBC) [Entitic vol] 87.4 fL Normal 81-99 [facility] Comment on above: Performed By: #### L 500.4050, L506.1000, L100.0100, L501.9985 #### [facility] [address] [place], [address] Monocytes/100 WBC (Bld) 8.3 % Normal 0-10 [facility] Comment on above: Performed By: #### L 500.4050, L506.1000, L100.0100, L501.9985 #### [facility] [address] [place], [address] Neutrophils/100 WBC (Bld) 72.1 % High 47-70 [facility] Comment on above: Performed By: #### L 500.4050, L506.1000, L100.0100, L501.9985 #### [facility] [address] [place], [address] Nucleated RBC (Bld) [#/Vol] 0 10*3/uL Normal 0-5 [facility] Comment on above: Performed By: #### L 500.4050, L506.1000, L100.0100, L501.9985 #### [facility] [address] [place], [address] Platelet mean volume (Bld) [Entitic vol] 11.8 fL Normal 6.2-12.0 [facility] Comment on above: Performed By: #### L 500.4050, L506.1000, L100.0100, L501.9985 #### [facility] [address] [place], [address] Platelets (Bld) [#/Vol] 106 10*3/uL Low 150-450 [facility] Comment on above: Performed By: #### L 500.4050, L506.1000, L100.0100, L501.9985 #### [facility] [address] [place], [address] RBC (Bld) [#/Vol] 4.67 10*6/uL Normal 4.2-5.4 [facility] Comment on above: Performed By: #### L 500.4050, L506.1000, L100.0100, L501.9985 #### [facility] [address] [place], [address] RDW SD 51.0 fl High 35.1-43.9 [facility] Comment on above: Performed By: #### L 500.4050, L506.1000, L100.0100, L501.9985 #### [facility] [address] [place], [address] WBC (Bld) [#/Vol] 6.8 10*3/uL Normal 4.4-11.0 [facility] Comment on above: Performed By: #### L 500.4050, L506.1000, L100.0100, L501.9985 #### [facility] [address] [place], [address] Absolute Lymph 0.97 X10 3/uL Normal 0.83-4.51 [facility] Comment on above: Order Comment: 134 Performed By: #### L 500.4050, L506.1000, L100.0100, L501.9985 #### [facility] [address] [place], [address] Absolute Neut 4.4 X10 3/uL Normal 2.0-7.7 [facility] Comment on above: Order Comment: 134 Performed By: #### L 500.4050, L506.1000, L100.0100, L501.9985 #### [facility] [address] [place], [address] Basophils/100 WBC (Bld) 0.5 % Normal 0-1 [facility] Comment on above: Order Comment: 134 Performed By: #### L 500.4050, L506.1000, L100.0100, L501.9985 #### [facility] [address] [place], [address] Eosinophils/100 WBC (Bld) 1.2 % Normal 0-5 [facility] Comment on above: Order Comment: 134 Performed By: #### L 500.4050, L506.1000, L100.0100, L501.9985 #### [facility] [address] [place], [address] Erythrocyte distribution width (RBC) [Ratio] 15.7 % High 11.6-14.6 [facility] Comment on above: Order Comment: 134 Performed By: #### L 500.4050, L506.1000, L100.0100, L501.9985 #### [facility] [address] [place], [address] Hematocrit (Bld) [Volume fraction] 40.9 % Normal 37-47 [facility] Comment on above: Order Comment: 134 Performed By: #### L 500.4050, L506.1000, L100.0100, L501.9985 #### [facility] [address] [place], [address] Hemoglobin (Bld) [Mass/Vol] 13.5 g/dL Normal 12.0-15.0 [facility] Comment on above: Order Comment: 134 Performed By: #### L 500.4050, L506.1000, L100.0100, L501.9985 #### [facility] [address] [place], [address] IG% 0.300 Normal 0.0-0.9 [facility] Comment on above: Order Comment: 134 Result Comment: IG% - Immature Granulocytes (promyelocytes, myelocytes and metamyelocytes) > 1% indicates that a LEFT SHIFT is Present. Performed By: #### L 500.4050, L506.1000, L100.0100, L501.9985 #### [facility] [address] [place], [address] Lymphocytes/100 WBC (Bld) 16.1 % Low 19-41 [facility] Comment on above: Order Comment: 134 Performed By: #### L 500.4050, L506.1000, L100.0100, L501.9985 #### [facility] [address] [place], [address] MCH (RBC) [Entitic mass] 28.8 pg Normal 27.0-32.0 [facility] Comment on above: Order Comment: 134 Performed By: #### L 500.4050, L506.1000, L100.0100, L501.9985 #### [facility] [address] [place], [address] MCHC (RBC) [Mass/Vol] 33.0 g/dL Normal 32-36 [facility] Comment on above: Order Comment: 134 Performed By: #### L 500.4050, L506.1000, L100.0100, L501.9985 #### [facility] [address] [place], [address] MCV (RBC) [Entitic vol] 87.4 fL Normal 81-99 [facility] Comment on above: Order Comment: 134 Performed By: #### L 500.4050, L506.1000, L100.0100, L501.9985 #### [facility] [address] [place], [address] Monocytes/100 WBC (Bld) 8.4 % Normal 0-10 [facility] Comment on above: Order Comment: 134 Performed By: #### L 500.4050, L506.1000, L100.0100, L501.9985 #### [facility] [address] [place], [address] Neutrophils/100 WBC (Bld) 73.5 % High 47-70 [facility] Comment on above: Order Comment: 134 Performed By: #### L 500.4050, L506.1000, L100.0100, L501.9985 #### [facility] [address] [place], [address] Nucleated RBC (Bld) [#/Vol] 0 10*3/uL Normal 0-5 [facility] Comment on above: Order Comment: 134 Performed By: #### L 500.4050, L506.1000, L100.0100, L501.9985 #### [facility] [address] [place], [address] Platelet mean volume (Bld) [Entitic vol] 10.8 fL Normal 6.2-12.0 [facility] Comment on above: Order Comment: 134 Performed By: #### L 500.4050, L506.1000, L100.0100, L501.9985 #### [facility] [address] [place], [address] Platelets (Bld) [#/Vol] 107 10*3/uL Low 150-450 [facility] Comment on above: Order Comment: 134 Performed By: #### L 500.4050, L506.1000, L100.0100, L501.9985 #### [facility] [address] [place], [address] RBC (Bld) [#/Vol] 4.68 10*6/uL Normal 4.2-5.4 [facility] Comment on above: Order Comment: 134 Performed By: #### L 500.4050, L506.1000, L100.0100, L501.9985 #### [facility] [address] [place], [address] RDW SD 50.2 fl High 35.1-43.9 [facility] Comment on above: Order Comment: 134 Performed By: #### L 500.4050, L506.1000, L100.0100, L501.9985 #### [facility] [address] [place], [address] WBC (Bld) [#/Vol] 6.0 10*3/uL Normal 4.4-11.0 [facility] Comment on above: Order Comment: 134 Performed By: #### L 500.4050, L506.1000, L100.0100, L501.9985 #### [facility] [address] [place], [address] CRPon 10-09-2024 C-REACTIVE PROT 5.92 mg/L High 0.0-3.0 [facility] Comment on above: Performed By: #### L 503.0106 #### [facility] [address] [place], [address] Carbon dioxide, total [Moles /volume] in Central venous bloodOrdered By: Dany Richardson on 10-09-2024 CO2 [Moles/Vol] 21.0 mmol/L 21.0-32.0 [facility] Carbon dioxide, total [Moles /volume] in Central venous bloodOrdered By: Shayna Malhotra on 10-09-2024 CO2 [Moles/Vol] 22.6 mmol/L 21.0-32.0 [facility] Chloride assayOrdered By: Nolan Richardson on 10-09-2024 Chloride [Moles/Vol] 106 mmol/L 98-108 [facility] Chloride assayOrdered By: Maryanne Malhotra on 10-09-2024 Chloride [Moles/Vol] 104 mmol/L 98-108 [facility] Comprehensive Metabolic Prof ilon 10-09-2024 Albumin [Mass/Vol] 3.8 g/dL Normal 3.4-4.8 [facility] Comment on above: Performed By: #### L 501.080 #### [facility] [address] [place], [address] Albumin/Globulin [Mass ratio] 0.8 {ratio} Low 0.9-2.4 [facility] Comment on above: Performed By: #### L 501.080 #### [facility] [address] [place], [address] ALK PHOS 135 U/L High 35-104 [facility] Comment on above: Performed By: #### L 501.080 #### [facility] [address] [place], [address] ALT [Catalytic activity/Vol] 23 U/L Normal <=34 [facility] Comment on above: Performed By: #### L 501.080 #### [facility] [address] [place], [address] AST [Catalytic activity/Vol] 40 U/L High <=31 [facility] Comment on above: Result Comment: Hemo lysis present, Results??could be affected. ?? Performed By: #### L 501.080 #### [facility] [address] [place], [address] Bilirubin [Mass/Vol] 0.67 mg/dL Normal 0.00-1.30 [facility] Comment on above: Performed By: #### L 501.080 #### [facility] [address] [place], [address] BUN/CRE 26.6 RATIO High 10-20 [facility] Comment on above: Performed By: #### L 501.080 #### [facility] [address] [place], [address] Calcium [Mass/Vol] 9.7 mg/dL Normal 7.6-11.0 [facility] Comment on above: Performed By: #### L 501.080 #### [facility] [address] [place], [address] Chloride [Moles/Vol] 106 mmol/L Normal 98-108 [facility] Comment on above: Performed By: #### L 501.080 #### [facility] [address] [place], [address] CO2 [Moles/Vol] 21.0 mmol/L Normal 21.0-32.0 [facility] Comment on above: Performed By: #### L 501.080 #### [facility] [address] [place], [address] Creatinine [Mass/Vol] 0.88 mg/dL Normal 0.70-1.20 [facility] Comment on above: Performed By: #### L 501.080 #### [facility] [address] [place], [address] ECRCL 81.27 ml/min Normal 50-250 [facility] Comment on above: Performed By: #### L 501.080 #### [facility] [address] [place], [address] GAP 11 Normal 5-15 [facility] Comment on above: Performed By: #### L 501.080 #### [facility] [address] [place], [address] GFR/1.73 sq M.predicted among non-blacks MDRD (S/P/Bld) [Vol rate/Area] 70 mL/min/{1.73_m2} Normal >60 [facility] Comment on above: Result Comment: mL/m in/1.73m2 CKD-EPI Creatinine Equation (2020) Performed By: #### L 501.080 #### [facility] [address] [place], [address] Globulin (S) [Mass/Vol] 4.6 g/dL High 2.2-4.2 [facility] Comment on above: Performed By: #### L 501.080 #### [facility] [address] [place], [address] Glucose [Mass/Vol] 138 mg/dL High 70-99 [facility] Comment on above: Performed By: #### L 501.080 #### [facility] [address] [place], [address] Potassium [Moles/Vol] 4.5 mmol/L Normal 3.3-5.1 [facility] Comment on above: Result Comment: Hemo lysis present, Results??could be affected. ?? Performed By: #### L 501.080 #### [facility] [address] [place], [address] Sodium [Moles/Vol] 138 mmol/L Normal 133-145 [facility] Comment on above: Performed By: #### L 501.080 #### [facility] [address] [place], [address] T PROT 8.4 g/dL Normal 5.9-8.4 [facility] Comment on above: Performed By: #### L 501.080 #### [facility] [address] [place], [address] Urea nitrogen [Mass/Vol] 23 mg/dL High 4-19 [facility] Comment on above: Performed By: #### L 501.080 #### [facility] [address] [place], [address] Albumin [Mass/Vol] 4.0 g/dL Normal 3.4-4.8 [facility] Comment on above: Order Comment: 134 Performed By: #### L 500.4050, L506.1000, L100.0100, L501.9985 #### [facility] [address] [place], [address] Albumin/Globulin [Mass ratio] 0.8 {ratio} Low 0.9-2.4 [facility] Comment on above: Order Comment: 134 Performed By: #### L 500.4050, L506.1000, L100.0100, L501.9985 #### [facility] [address] [place], [address] ALK PHOS 148 U/L High 35-104 [facility] Comment on above: Order Comment: 134 Performed By: #### L 500.4050, L506.1000, L100.0100, L501.9985 #### [facility] [address] [place], [address] ALT [Catalytic activity/Vol] 26 U/L Normal <=34 [facility] Comment on above: Order Comment: 134 Performed By: #### L 500.4050, L506.1000, L100.0100, L501.9985 #### [facility] [address] [place], [address] AST [Catalytic activity/Vol] 37 U/L High <=31 [facility] Comment on above: Order Comment: 134 Performed By: #### L 500.4050, L506.1000, L100.0100, L501.9985 #### [facility] [address] [place], [address] Bilirubin [Mass/Vol] 0.62 mg/dL Normal 0.00-1.30 [facility] Comment on above: Order Comment: 134 Performed By: #### L 500.4050, L506.1000, L100.0100, L501.9985 #### [facility] [address] [place], [address] BUN/CRE 25.9 RATIO High 10-20 [facility] Comment on above: Order Comment: 134 Performed By: #### L 500.4050, L506.1000, L100.0100, L501.9985 #### [facility] [address] [place], [address] Calcium [Mass/Vol] 9.6 mg/dL Normal 7.6-11.0 [facility] Comment on above: Order Comment: 134 Performed By: #### L 500.4050, L506.1000, L100.0100, L501.9985 #### [facility] [address] [place], [address] Chloride [Moles/Vol] 104 mmol/L Normal 98-108 [facility] Comment on above: Order Comment: 134 Performed By: #### L 500.4050, L506.1000, L100.0100, L501.9985 #### [facility] [address] [place], [address] CO2 [Moles/Vol] 22.6 mmol/L Normal 21.0-32.0 [facility] Comment on above: Order Comment: 134 Performed By: #### L 500.4050, L506.1000, L100.0100, L501.9985 #### [facility] [address] [place], [address] Creatinine [Mass/Vol] 0.82 mg/dL Normal 0.70-1.20 [facility] Comment on above: Order Comment: 134 Performed By: #### L 500.4050, L506.1000, L100.0100, L501.9985 #### [facility] [address] [place], [address] GAP 12 Normal 5-15 [facility] Comment on above: Order Comment: 134 Performed By: #### L 500.4050, L506.1000, L100.0100, L501.9985 #### [facility] [address] [place], [address] GFR/1.73 sq M.predicted among non-blacks MDRD (S/P/Bld) [Vol rate/Area] 76 mL/min/{1.73_m2} Normal >60 [facility] Comment on above: Order Comment: 134 Result Comment: mL/m in/1.73m2 CKD-EPI Creatinine Equation (2020) Performed By: #### L 500.4050, L506.1000, L100.0100, L501.9985 #### [facility] [address] [place], [address] Globulin (S) [Mass/Vol] 4.8 g/dL High 2.2-4.2 [facility] Comment on above: Order Comment: 134 Performed By: #### L 500.4050, L506.1000, L100.0100, L501.9985 #### [facility] [address] [place], [address] Glucose [Mass/Vol] 173 mg/dL High 70-99 [facility] Comment on above: Order Comment: 134 Performed By: #### L 500.4050, L506.1000, L100.0100, L501.9985 #### [facility] [address] [place], [address] Potassium [Moles/Vol] 4.2 mmol/L Normal 3.3-5.1 [facility] Comment on above: Order Comment: 134 Performed By: #### L 500.4050, L506.1000, L100.0100, L501.9985 #### [facility] [address] [place], [address] Sodium [Moles/Vol] 138 mmol/L Normal 133-145 [facility] Comment on above: Order Comment: 134 Performed By: #### L 500.4050, L506.1000, L100.0100, L501.9985 #### [facility] [address] [place], [address] T PROT 8.9 g/dL High 5.9-8.4 [facility] Comment on above: Order Comment: 134 Performed By: #### L 500.4050, L506.1000, L100.0100, L501.9985 #### [facility] [address] [place], [address] Urea nitrogen [Mass/Vol] 21 mg/dL High 4-19 [facility] Comment on above: Order Comment: 134 Performed By: #### L 500.4050, L506.1000, L100.0100, L501.9985 #### [facility] [address] [place], [address] Emergency Department Summary on 10-09-2024 Emergency Department Summary [facility] Medical Records Department [address] [place] [address] Emergency Department Summary 10/09/24 MR#: [id number] Acct: [id number] Name: VIDA NINA Rep #: [id number] : 1950 73 From: Dany Richardson MD PCP: Dr. Shayna Malhotra MD Status:REG ER Location: ED HPI History of Present Illness Chief Complaint: Lower Extremity Injury Narrative Narrative: 73-year-old female states that she had pins placed in her left foot approximately 15 years ago [place] after breaking her heel. She is currently in [facility]. She states for the last 2 weeks she has been having increasing foot pain. She states that on Tuesday, probably of the last week, she had x-rays obtained at the [facility]. She went and saw Dr. Shayna Malhotra on Tuesday, but he did not have the x-ray results. She states that she is having a lot of pain in her left heel that is worse with weightbearing and walking and palpation. She states that it feels as if she is having a baby out of her left heel. [facility] Medical History Obesity Anxiety Cancer Anxiety [...] topical TID #0 grams Unknown Rx powder ([facility]) quetiapine 100 mg tablet 300 mg (3 [...] ROS Narrative (more content not included)... Normal [facility] Eosinophil percentageOrdered By: Dany Richardson on 10-09-2024 Eosinophils/100 WBC (Bld) 2.5 % 0-5 [facility] Eosinophil percentageOrdered By: Shayna Malhotra on 10-09-2024 Eosinophils/100 WBC (Bld) 1.2 % 0-5 [facility] Epithelial cells.squamous LM Ql (Urine sed)Ordered By: Dany Richardson on 10-09-2024 Epithelial cells.squamous LM.HPF (Urine sed) [#/Area] 0 /[HPF] 5-10 [facility] Erythrocyte Sed Rateon 10-09 SED RATE 49 mm/hr High 0-30 [facility] Comment on above: Performed By: #### L 503.0106 #### [facility] [address] [place] [address]. [place], [place], [id number] Erythrocyte distribution wid th (RBC) [Ratio]Ordered By: Dany Richardson on 10-09-2024 Erythrocyte distribution width (RBC) [Entitic vol] 51.0 fL High 35.1-43.9 [facility] Erythrocyte distribution wid th (RBC) [Ratio]Ordered By: Shayna Malhotra on 10-09-2024 Erythrocyte distribution width (RBC) [Entitic vol] 50.2 fL High 35.1-43.9 [facility] Erythrocyte distribution wid th ratioOrdered By: Dany Richardson on 10-09-2024 Erythrocyte distribution width (RBC) [Ratio] 15.9 % High 11.6-14.6 [facility] Erythrocyte distribution wid th ratioOrdered By: Shayna Malhotra on 10-09-2024 Erythrocyte distribution width (RBC) [Ratio] 15.7 % High 11.6-14.6 [facility] Erythrocyte distribution wid th standard deviationOrdered By: Shayna Malhotra on 10-09-2024 Erythrocyte distribution width (RBC) [Ratio] 50.2 fl High 35.1-43.9 [facility] Erythrocyte sedimentation ra teOrdered By: Missael Lomeli on 10-09-2024 ESR (Bld) [Velocity] 49 mm/h High 0-30 [facility] Estimation of creatinine silvana aranceOrdered By: Dany Richardson on 10-09-2024 Estimated Creatinine Clearance Calc 81.27 ml/min 50-250 [facility] Extremity Lower without Cont raon 10-09-2024 Extremity Lower without Contra [facility] Imaging Services [address] [place], [place] [address] Extremity Lower without Contra MR#: [id number] Acct: [id number] Name: VIDA NINA Rep #: [id number] : 1950 F 73 From: Saul Sanchez MD PCP: Dr. Shayna Malhotra MD Status: ADM IN Study: Extremity Lower without Contra Date of Exam: 0 10/09/24 Exam# [id number] Ordering Dr: Missael Hernandez DO PROCEDURE: EXTREMITY [...] Hernandez at 2:20 a.m. 10/10/2024 Reading Location: [id number] CC: Dr. Missael Hernandez DO; Dr. 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 Shayna Malhotra MD Status: REG ER Study: Foot min 3 Views Date of Exam: 10/09/24 Exam# [id number] Ordering Dr: Dany Richardson MD EXAM: LEFT [...] arthritic changes. Soft tissue swelling. [facility]: Dr. Dany Richardson MD; Dr. 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 Normal [facility] GFR/1.73 sq M.predicted saida g non-blacks MDRD (S/P/Bld) [Vol rate/Area]Ordered By: Dany Richardson on 10-09-2024 Estimated GFR (MDRD) Non-Af Amer 70 >60 [facility] Comment on above: mL/min/1.73m2 CKD-EP I Creatinine Equation (2020) GFR/1.73 sq M.predicted saida g non-blacks MDRD (S/P/Bld) [Vol rate/Area]Ordered By: Shayna Malhotra on 10-09-2024 Estimated GFR (MDRD) Non-Af Amer 76 >60 [facility] Comment on above: mL/min/1.73m2 CKD-EP I Creatinine Equation (2020) Glomerular filtration rate ( GFR) estimation/1.73 sq m using serum, plasma, or whole bOrdered By: Shayna Malhotra on 10-09-2024 GFR/1.73 sq M.predicted among non-blacks MDRD (S/P/Bld) [Vol rate/Area] 76 mL/min/{1.73_m2} >60 [facility] Comment on above: mL/min/1.73m2 CKD-EP I Creatinine Equation (2020) Glucose Ql (U)Ordered By: Nolan Richardson on 10-09-2024 Glucose (U) [Mass/Vol] 1000 mg/dL High Normal [facility] H AND P Exam - [facility] 10-09-2024 H&P Exam - Hospitalist [facility] Medical Records Department [address] [place] [address] H P Exam - Hospitalist 10/09/242118 MR#: [id number] Acct: [id number] Name: VIDA NINA Breann Rep #: [id number] : 1950 73 From: Missael Hernandez DO PCP: Dr. Shayna Malhotra MD Status:ADM IN Location: [facility] TG984-1 HPI - General General Date of Admission: 10/09/24 Date of Service: 10/09/24 Chief Complaint: Left Heel Pain, Poor Hygiene and Unable to Care for Herself. 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 [facility] Medical History Obesity Anxiety Cancer Anxiety Diabetes [...] topical TID #0 grams Unknown Rx powder ([facility]) quetiapine 100 mg tablet 300 mg (3 x 100 mg) PO BID #0 tabs 11/24/21 Unknown Rx aspirin 81 mg chewable tablet 81 mg PO DAILY 05/06/22 Unknown Hi (more content not included)... Normal [facility] Hematocrit Auto (Bld) [Volum e fraction]Ordered By: Dany Richardson on 10-09-2024 Hematocrit (Bld) [Volume fraction] 40.8 % 37-47 [facility] Hematocrit Auto (Bld) [Volum e fraction]Ordered By: Shayna Malhotra on 10-09-2024 Hematocrit (Bld) [Volume fraction] 40.9 % [facility] Hemoglobin A1con 10-09-2024 HbA1c (Bld) [Mass fraction] 7.2 % High <=5.6 [facility] Comment on above: Order Comment: 134 Result Comment: Norm al < 5.7 % Prediabetic 5.7 - 6.4 % Diabetic >or= 6.5 % Please note range changes. Performed By: #### L 500.4050, L506.1000, L100.0100, L501.9985 #### [facility] [address] [place], [address] Hemoglobin A1c percentageOrd ered By: Missael Lomeli on 10-09-2024 HbA1c (Bld) [Mass fraction] 7.2 % High <5.7 [facility] Comment on above: Normal < 5.7 % Predi abetic 5.7 - 6.4 % Diabetic >or= 6.5 % Please note range changes. Hemoglobin A1c percentageOrd ered By: Shayna Malhotra on 10-09-2024 HbA1c (Bld) [Mass fraction] 7.2 % High <5.7 [facility] Comment on above: Normal < 5.7 % Predi abetic 5.7 - 6.4 % Diabetic >or= 6.5 % Please note range changes. Hemoglobin measurementOrdere d By: Dany Richardson on 10-09-2024 Hemoglobin (Bld) [Mass/Vol] 13.5 g/dL 12.0-15.0 [facility] Hemoglobin measurementOrdere d By: Shayna Malhotra on 10-09-2024 Hemoglobin (Bld) [Mass/Vol] 13.5 g/dL 12.0-15.0 [facility] Immature granulocytes/100 WB C Auto (Bld)Ordered By: Dany Richardson on 10-09-2024 Immature granulocytes/100 WBC (Bld) 0.400 % 0.0-0.9 [facility] Comment on above: IG% - Immature Granu locytes (promyelocytes, myelocytes and metamyelocytes) > 1% indicates that a LEFT SHIFT is Present. Immature granulocytes/100 WB C Auto (Bld)Ordered By: Shayna Malhotra on 10-09-2024 Immature granulocytes/100 WBC (Bld) 0.300 % 0.0-0.9 [facility] Comment on above: IG% - Immature Granu locytes (promyelocytes, myelocytes and metamyelocytes) > 1% indicates that a LEFT SHIFT is Present. Ketones Test strip Ql (U)Ord ered By: Dany Richardson on 10-09-2024 Ketones Ql (U) Negative Negative [facility] - Chemistry and C hemistry - challengeOrdered By: Dany Richardson on 10-09-2024 AST [Catalytic activity/Vol] 40 U/L High <32 [facility] Comment on above: Hemolysis present, R esults could be affected. Laboratory - Chemistry and C hemistry - challengeOrdered By: Shayna Malhotra on 10-09-2024 AST [Catalytic activity/Vol] 37 U/L High <32 [facility] Lymphocytes Auto (Unsp spec) [#/Vol]Ordered By: Dany Richardson on 10-09-2024 Lymphocytes (Bld) [#/Vol] 1.11 10*3/uL 0.83-4.51 [facility] Lymphocytes Auto (Unsp spec) [#/Vol]Ordered By: Shayna Malhotra on 10-09-2024 Lymphocytes (Bld) [#/Vol] 0.97 10*3/uL 0.83-4.51 [facility] Lymphocytes/100 WBC Auto (Un sp spec)Ordered By: Dany Richardson on 10-09-2024 Lymphocytes/100 WBC (Bld) 16.3 % Low 19-41 [facility] Lymphocytes/100 WBC Auto (Un sp spec)Ordered By: Shayna Malhotra on 10-09-2024 Lymphocytes/100 WBC (Bld) 16.1 % Low 19-41 [facility] MCV (mean corpuscular volume ) determinationOrdered By: Dany Richardson on 10-09-2024 MCV (RBC) [Entitic vol] 87.4 fL 81-99 [facility] MCV (mean corpuscular volume ) determinationOrdered By: Shayna Malhotra on 10-09-2024 MCV (RBC) [Entitic vol] 87.4 fL 81-99 [facility] Magnesiumon 10-09-2024 Magnesium [Mass/Vol] 2.1 mg/dL Normal 1.5-2.2 [facility] Comment on above: Performed By: #### L 503.0106 #### [facility] [place], [address] Mean corpuscular hemoglobin (MCH) determinationOrdered By: Dany Richardson on 10-09-2024 MCH (RBC) [Entitic mass] 28.9 pg 27.0-32.0 [facility] Mean corpuscular hemoglobin (MCH) determinationOrdered By: Shayna Malhotra on 10-09-2024 MCH (RBC) [Entitic mass] 28.8 pg 27.0-32.0 [facility] Mean corpuscular hemoglobin concentration (MCHC) determinationOrdered By: Dany Richardson on 10-09-2024 MCHC (RBC) [Mass/Vol] 33.1 g/dL [facility] Mean corpuscular hemoglobin concentration (MCHC) determinationOrdered By: Shayna Malhotra on 10-09-2024 MCHC (RBC) [Mass/Vol] 33.0 g/dL [facility] Mean platelet volume determi nationOrdered By: Dany Richardson on 10-09-2024 Platelet mean volume (Bld) [Entitic vol] 11.8 fL 6.2-12.0 [facility] Mean platelet volume determi nationOrdered By: Shayna Malhotra on 10-09-2024 Platelet mean volume (Bld) [Entitic vol] 10.8 fL 6.2-12.0 [facility] Microscopic analysis of urin e for red blood cells (RBC)Ordered By: Dany Richardson on 10-09-2024 Microscopic analysis of urine for red blood cells (RBC) 10-25 SEEN /hpf 0-5 [facility] Urine RBC 10-25 SEEN /hpf 0-5 [facility] Monocyte percentageOrdered B y: Dany Richardson on 10-09-2024 Monocytes/100 WBC (Bld) 8.3 % 0-10 [facility] Monocyte percentageOrdered B y: Shayna Malhotra on 10-09-2024 Monocytes/100 WBC (Bld) 8.4 % 0-10 [facility] Mucus LM Ql (Urine sed)Order ed By: Dany Richardson on 10-09-2024 Mucus Ql (Urine sed) 0 SEEN /hpf [facility] Neutrophil percentageOrdered By: Dany Richardson on 10-09-2024 Neutrophils/100 WBC (Bld) 72.1 % High 47-70 [facility] Neutrophil percentageOrdered By: Shayna Malhotra on 10-09-2024 Neutrophils/100 WBC (Bld) 73.5 % High 47-70 [facility] Nitrite Test strip Ql (U)Ord ered By: Dany Richardson on 10-09-2024 Nitrite Ql (U) Negative Negative [facility] No Panel InformationOrdered By: Missael Lomeli on 10-09-2024 Urine Buprenorphine Qualitative Negative < 200 ng/mL [facility] Urine Oxycodone Screen Negative < 100 ng/mL [facility] Nucleated red blood cell per centageOrdered By: Dany Richardson on 10-09-2024 Nucleated RBC/100 WBC (Bld) [Ratio] 0 % 0-5 [facility] Nucleated red blood cell per centageOrdered By: Shayna Malhotra on 10-09-2024 Nucleated RBC/100 WBC (Bld) [Ratio] 0 % 0-5 [facility] Platelet countOrdered By: Nolan Richardson on 10-09-2024 Platelets (Bld) [#/Vol] 106 10*3/uL Low 150-450 [facility] Platelet countOrdered By: Maryanne Malhotra on 10-09-2024 Platelets (Bld) [#/Vol] 107 10*3/uL Low 150-450 [facility] Potassium (Unsp spec) [Mass/ Vol]Ordered By: Dany Richardson on 10-09-2024 Potassium [Moles/Vol] 4.5 mmol/L 3.3-5.1 [facility] Comment on above: Hemolysis present, R esults could be affected. Potassium (Unsp spec) [Mass/ Vol]Ordered By: Shayna Malhotra on 10-09-2024 Potassium [Moles/Vol] 4.2 mmol/L 3.3-5.1 [facility] Potassium measurement (mass/ volume)Ordered By: Shayna Malhotra on 10-09-2024 Potassium (Unsp spec) [Mass/Vol] 4.2 mmol/L 3.3-5.1 [facility] Protein Test strip Ql (U)Ord ered By: Dany Richardson on 10-09-2024 Protein Ql (U) 30 mg/dl High Negative [facility] Quantitative urine opiates m easurementOrdered By: Missael Lomeli on 10-09-2024 Opiates Ql (U) Negative < 300 ng/mL [facility] RBC Auto (Bld) [#/Vol]Ordere d By: Dany Richardson on 10-09-2024 RBC (Bld) [#/Vol] 4.67 10*6/uL 4.2-5.4 [facility] RBC Auto (Bld) [#/Vol]Ordere d By: Shayna Malhotra on 10-09-2024 RBC (Bld) [#/Vol] 4.68 10*6/uL 4.2-5.4 [facility] Screening urine fentanyl renay surementOrdered By: Missael Lomeli on 10-09-2024 fentaNYL Screen Ql (U) Negative [facility] Serum creatinine measurement (mass/volume)Ordered By: Dany Richardson on 10-09-2024 Creatinine [Mass/Vol] 0.88 mg/dL 0.70-1.20 [facility] Serum creatinine measurement (mass/volume)Ordered By: Shayna Malhotra on 10-09-2024 Creatinine [Mass/Vol] 0.82 mg/dL 0.70-1.20 [facility] Serum globulin measurementOr dered By: Dany Richardson on 10-09-2024 Globulin (S) [Mass/Vol] 4.6 g/dL High 2.2-4.2 [facility] Serum globulin measurementOr dered By: Shayna Malhotra on 10-09-2024 Globulin (S) [Mass/Vol] 4.8 g/dL High 2.2-4.2 [facility] Serum glucose measurement (m ass/volume)Ordered By: Dany Richardson on 10-09-2024 Glucose [Mass/Vol] 138 mg/dL High 70-99 [facility] Serum glucose measurement (m ass/volume)Ordered By: Shayna Malhotra on 10-09-2024 Glucose [Mass/Vol] 173 mg/dL High 70-99 [facility] Serum or plasma C reactive p rotein measurement (mass/volume)Ordered By: Missael Lomeli on 10-09-2024 CRP [Mass/Vol] 5.92 mg/L High 0.0-3.0 [facility] Serum or plasma alanine burnette otransferase (ALT) measurementOrdered By: Dany Richardson on 10-09-2024 ALT [Catalytic activity/Vol] 23 U/L <35 [facility] Serum or plasma alanine burnette otransferase (ALT) measurementOrdered By: Shayna Malhotra on 10-09-2024 ALT [Catalytic activity/Vol] 26 U/L <35 [facility] Serum or plasma albumin kim urement (mass/volume)Ordered By: Dany Richardson on 10-09-2024 Albumin [Mass/Vol] 3.8 g/dL 3.4-4.8 [facility] Serum or plasma albumin kim urement (mass/volume)Ordered By: Shayna Malhotra on 10-09-2024 Albumin [Mass/Vol] 4.0 g/dL 3.4-4.8 [facility] Serum or plasma albumin/glob ulin mass ratioOrdered By: Dany Richardson on 10-09-2024 Albumin/Globulin [Mass ratio] 0.8 {ratio} Low 0.9-2.4 [facility] Serum or plasma albumin/glob ulin mass ratioOrdered By: Shayna Malhotra on 10-09-2024 Albumin/Globulin [Mass ratio] 0.8 {ratio} Low 0.9-2.4 [facility] Serum or plasma alkaline regina sphatase measurementOrdered By: Dany Richardson on 10-09-2024 ALP [Catalytic activity/Vol] 135 U/L High 35-104 [facility] Serum or plasma alkaline regina sphatase measurementOrdered By: Shayna Malhotra on 10-09-2024 ALP [Catalytic activity/Vol] 148 U/L High 35-104 [facility] Serum or plasma calcium kim urement (mass/volume)Ordered By: Dany Richardson on 10-09-2024 Calcium [Mass/Vol] 9.7 mg/dL 7.6-11.0 [facility] Serum or plasma calcium kim urement (mass/volume)Ordered By: Shayna Malhotra on 10-09-2024 Calcium [Mass/Vol] 9.6 mg/dL 7.6-11.0 [facility] Serum or plasma ethanol kim urement (mass/volume)Ordered By: Missael Lomeli on 10-09-2024 Ethanol [Mass/Vol] mg/dL <10.1 [facility] Comment on above: This test is for med ical purposes only. The legal definition of intoxication varies according to local law. Serum or plasma urea nitroge n measurement (mass/volume)Ordered By: Dany Richardson on 10-09-2024 Urea nitrogen [Mass/Vol] 23 mg/dL High 4-19 [facility] Serum or plasma urea nitroge n measurement (mass/volume)Ordered By: Shayna Malhotra on 10-09-2024 Urea nitrogen [Mass/Vol] 21 mg/dL High 09-22 [facility] Sodium levelOrdered By: Dany Richardson on 10-09-2024 Sodium [Moles/Vol] 138 mmol/L 133-145 [facility] Sodium levelOrdered By: Paty Malhotra on 10-09-2024 Sodium [Moles/Vol] 138 mmol/L 133-145 [facility] Squamous epithelial cells de tection in urine sediment by light microscopyOrdered By: Dany Richardson on 10-09-2024 Epithelial cells.squamous LM Ql (Urine sed) 0-5 SEEN /hpf 5-10 [facility] TSH DL <= 0.005 mIU/L QnOrde red By: Missael Lomeli on 10-09-2024 TSH Qn 4.730 uIU/mL High 0.300-4.20 0 [facility] Thyroid Stim Hormone (TSH)on 10-09-2024 TSH 4.730 uIU/mL High 0.300-4.20 0 [facility] Comment on above: Performed By: #### L 500.4050, L506.1000, L100.0100, L501.9985 #### [facility] [address] [place], [address] Total proteinOrdered By: Treasure Richardson on 10-09-2024 Protein [Mass/Vol] 8.4 g/dL 5.9-8.4 [facility] Total proteinOrdered By: Evi desi Malhotra on 10-09-2024 Protein [Mass/Vol] 8.9 g/dL High 5.9-8.4 [facility] Transitional cells LM Ql (Ur ine sed)Ordered By: Dany Richardson on 10-09-2024 Urine Transitional Epithelial Cells 0-5 SEEN /hpf 0-5 [facility] Transitional cells detection in urine sediment by light microscopyOrdered By: Dany Richardson on 10-09-2024 Transitional cells LM Ql (Urine sed) 0-5 SEEN /hpf 0-5 [facility] Urinalysis, Completeon 10-09 AMORPHOUS 1+ Normal [facility] Comment on above: Order Comment: 134 Performed By: #### L 500.4050, L506.1000, L100.0100, L501.9985 #### [facility] [address] [place], [address] EPI,SQUAMOUS 0-5 SEEN Normal 5-10 [facility] Comment on above: Order Comment: 134 Performed By: #### L [id number], L506.1000, L100.0100, L501.9985 #### [facility] [address] [place], [address] EPI,TRANSITION 0-5 SEEN Normal 0-5 [facility] Comment on above: Order Comment: 134 Performed By: #### L 500.4050, L506.1000, L100.0100, L501.9985 #### [facility] [address] [place], [address] RBC 10-25 SEEN Normal 0-5 [facility] Comment on above: Order Comment: 134 Performed By: #### L 500.4050, L506.1000, L100.0100, L501.9985 #### [facility] [address] [place], [address] BACTERIA 4+ /hpf Normal None Seen [facility] Comment on above: Order Comment: 134 Performed By: #### L 500.4050, L506.1000, L100.0100, L501.9985 #### [facility] [address] [place], [address] WBC >100 SEEN Normal 0-5 [facility] Comment on above: Order Comment: 134 Performed By: #### L [id number], L506.1000, L100.0100, L501.9985 #### [facility] [address] [place], [address] Mucus Ql (Urine sed) 0 SEEN Normal [facility] Comment on above: Order Comment: 134 Performed By: #### L [id number], L506.1000, L100.0100, L501.9985 #### [facility] [address] [place], [address] Urine Drug Screen (VISTA)on 10-09-2024 AMPHETAMINES Negative Normal <1000 ng/mL [facility] Comment on above: Order Comment: UNK Performed By: #### L 503.0106 #### [facility] [address] [place], [address] BARBITIURATES Negative Normal < 200 ng/mL [facility] Comment on above: Order Comment: UNK Performed By: #### L 503.0106 #### [facility] [address] [place], [address] BENZODIAZIPINE Negative Normal < 200 ng/mL [facility] Comment on above: Order Comment: UNK Performed By: #### L 503.0106 #### [facility] [address] [place], [address] BUP Ur Drug Scr Negative Normal < 200 ng/mL [facility] Comment on above: Order Comment: UNK Performed By: #### L 503.0106 #### [facility] [address] [place], [address] COCAINE Negative Normal < 300 ng/mL [facility] Comment on above: Order Comment: UNK Performed By: #### L 503.0106 #### [facility] [address] [place], [address] Fentanyl Negative Normal [facility] Comment on above: Order Comment: UNK Performed By: #### L 503.0106 #### [facility] [address] [place], [address] METHADONE Negative Normal < 300 ng/mL [facility] Comment on above: Order Comment: UNK Performed By: #### L 503.0106 #### [facility] [address] [place], [address] OPIATES Negative Normal < 300 ng/mL [facility] Comment on above: Order Comment: UNK Performed By: #### L 503.0106 #### [facility] [address] [place], [address] OXYCODONE Negative Normal < 100 ng/mL [facility] Comment on above: Order Comment: UNK Performed By: #### L 503.0106 #### [facility] [address] [place], [address] PCP Negative Normal < 25 ng/mL [facility] Comment on above: Order Comment: UNK Performed By: #### L 503.0106 #### [facility] [address] [place], [address] THC Negative Normal < 50 ng/mL [facility] Comment on above: Order Comment: UNK Performed By: #### L [id number] #### [facility] [address] [place], [address] Urine benzodiazepine levelOr dered By: Missael Lomeli on 10-09-2024 Benzodiazepines Ql (U) Negative < 200 ng/mL [facility] Urine blood detectionOrdered By: Dany Richardson on 10-09-2024 Urine Occult Blood 150 /ul High Negative [facility] Urine clarityOrdered By: Treasure Richardson on 10-09-2024 Clarity (U) Cloudy Clear [facility] Urine cocaine levelOrdered B y: Missael Lomeli on 10-09-2024 Cocaine Ql (U) Negative < 300 ng/mL [facility] Urine color determinationOrd ered By: Dany Richardson on 10-09-2024 Color (U) Yellow Yellow [facility] Urine imcuh-9-dfozbxyduxyxll abinol (THC) measurementOrdered By: Missael Lomeli on 10-09-2024 Cannabinoids Screen Ql (U) Negative < 50 ng/mL [facility] Urine glucose detectionOrder ed By: Dany Richardson on 10-09-2024 Glucose Ql (U) 1000 mg/dl High Normal [facility] Urine leukocyte esterase det ection by dipstickOrdered By: Dany Richardson on 10-09-2024 Leukocyte esterase Test strip Ql (U) 100 /ul High Negative [facility] Urine pHOrdered By: Dany chung on 10-09-2024 pH (U) 5.0 [pH] 5.0 - 8.0 [facility] Urine phencyclidine (PCP) de tectionOrdered By: Missael Lomeli on 10-09-2024 Phencyclidine Ql (U) Negative < 25 ng/mL [facility] Urine sediment bacteria coun t by microscopy (number/high power field)Ordered By: Dany Richardson on 10-09-2024 Bacteria LM.HPF (Urine sed) [#/Area] 4 /[HPF] None Seen [facility] Urine specific gravity measu rementOrdered By: Dany Richradson on 10-09-2024 Specific gravity (U) [Rel density] 1.020 1.002-1.03 0 [facility] Urine urobilinogen measureme ntOrdered By: Dany Richardson on 10-09-2024 Urobilinogen Ql (U) 1 mg/dl High Normal [facility] Urobilinogen Ql (U)Ordered B y: Dany Richardson on 10-09-2024 Urobilinogen (U) [Mass/Vol] 1 mg/dL High Normal [facility] Vitamin B12on 10-09-2024 Cobalamin (Vitamin B12) [Mass/Vol] 379 pg/mL Normal 180-914 [facility] Comment on above: Performed By: #### L 503.0106 #### [facility] [address] [place], [place], [id number] Vitamin B12 ser/plasOrdered By: Missael Lomeli on 10-09-2024 Cobalamin (Vitamin B12) [Mass/Vol] 379 pg/mL 180-914 [facility] Vitamin D, 25-hydroxyOrdered By: Shayna Malhotra on 10-09-2024 Vitamin D 25-Hydroxy 30.0 ng/mL 30-100 [facility] Comment on above: Vitamin D StatusDefi ciency: <20 ng/mL (50nmol/L)Insufficiency: 20-30 ng/mL (50-75 nmol/L)Sufficiency: 30-100 ng/mL (75-250 nmol/L)Toxicity: >100 ng/mL (>250 nmol/L) Vitamin D,25 Hydroxyon 10-09 Vitamin D 25-OH 30.0 ng/mL Normal 30-100 [facility] Comment on above: Order Comment: 134 Result Comment: Maricarmen min D Status Deficiency: <20 ng/mL (50nmol/L) Insufficiency: 20-30 ng/mL (50-75 nmol/L) Sufficiency: 30-100 ng/mL (75-250 nmol/L) Toxicity: >100 ng/mL (>250 nmol/L) Performed By: #### L 500.4050, L506.1000, L100.0100, L501.9985 #### [facility] [address] [place], [place], [id number] White blood cell (WBC) count Ordered By: Dany Richardson on 10-09-2024 WBC (Bld) [#/Vol] 6.8 10*3/uL 4.4-11.0 [facility] White blood cell (WBC) count Ordered By: Shayna Malhotra on 10-09-2024 WBC (Bld) [#/Vol] 6.0 10*3/uL 4.4-11.0 [facility] White blood cell countOrdere d By: Dany Richardson on 10-09-2024 Urine WBC >100 SEEN /hpf 0-5 [facility] White blood cell count >100 SEEN /hpf 0-5 [facility] CBC W/Diff, Automatedon Absolute Neut Normal 2.0-7.7 [facility] Comment on above: Order Comment: 134 Result Comment: UTO X2 Performed By: #### L 501.080 #### [facility] [address] [place], [address] HCT Normal 37-47 [facility] Comment on above: Order Comment: 134 Result Comment: UTO X2 Performed By: #### L 501.080 #### [facility] [address] [place], [address] HGB Normal 12.0-15.0 [facility] Comment on above: Order Comment: 134 Result Comment: UTO X2 Performed By: #### L 501.080 #### [facility] [address] [place], [address] MCH Normal 27.0-32.0 [facility] Comment on above: Order Comment: 134 Result Comment: UTO X2 Performed By: #### L 501.080 #### [facility] [address] [place], [address] MCHC Normal 32-36 [facility] Comment on above: Order Comment: 134 Result Comment: UTO X2 Performed By: #### L 501.080 #### [facility] [address] [place], [address] MCV Normal 81-99 [facility] Comment on above: Order Comment: 134 Result Comment: UTO X2 Performed By: #### L 501.080 #### [facility] [address] [place], [address] NEUT% Normal 47-70 [facility] Comment on above: Order Comment: 134 Result Comment: UTO X2 Performed By: #### L 501.080 #### [facility] [address] [place], [address] PLT Normal 150-450 [facility] Comment on above: Order Comment: 134 Result Comment: UTO X2 Performed By: #### L 501.080 #### [facility] [address] [place], [address] RBC Normal 4.2-5.4 [facility] Comment on above: Order Comment: 134 Result Comment: UTO X2 Performed By: #### L 501.080 #### [facility] [address] [place], [address] RDW CV Normal 11.6-14.6 [facility] Comment on above: Order Comment: 134 Result Comment: UTO X2 Performed By: #### L 501.080 #### [facility] [address] [place], [address] RDW SD Normal 35.1-43.9 [facility] Comment on above: Order Comment: 134 Result Comment: UTO X2 Performed By: #### L 501.080 #### [facility] [address] [place], [address] WBC Normal 4.4-11.0 [facility] Comment on above: Order Comment: 134 Result Comment: UTO X2 Performed By: #### L 501.080 #### [facility] [address] [place], [address] Comprehensive Metabolic Prof ilon 10-08-2024 ALB Normal 3.4-4.8 [facility] Comment on above: Order Comment: 134 Result Comment: UTO X2 Performed By: #### L 501.080 #### [facility] [address] [place], [address] ALK PHOS Normal 35-104 [facility] Comment on above: Order Comment: 134 Result Comment: UTO X2 Performed By: #### L 501.080 #### [facility] [address] [place], [address] ALT Normal <=34 [facility] Comment on above: Order Comment: 134 Result Comment: UTO X2 Performed By: #### L 501.080 #### [facility] [address] [place], [address] AST Normal <=31 [facility] Comment on above: Order Comment: 134 Result Comment: UTO X2 Performed By: #### L 501.080 #### [facility] [address] [place], [address] BUN Normal 4-19 [facility] Comment on above: Order Comment: 134 Result Comment: UTO X2 Performed By: #### L 501.080 #### [facility] [address] [place], [address] BUN/CRE Normal 10-20 [facility] Comment on above: Order Comment: 134 Result Comment: UTO X2 Performed By: #### L 501.080 #### [facility] [address] [place], [address] Calcium Normal 7.6-11.0 [facility] Comment on above: Order Comment: 134 Result Comment: UTO X2 Performed By: #### L 501.080 #### [facility] [address] [place], [address] CL Normal 98-108 [facility] Comment on above: Order Comment: 134 Result Comment: UTO X2 Performed By: #### L 501.080 #### [facility] [address] [place], [address] CO2 Normal 21.0-32.0 [facility] Comment on above: Order Comment: 134 Result Comment: UTO X2 Performed By: #### L 501.080 #### [facility] [address] [place], [address] CREAT,SERUM Normal 0.70-1.20 [facility] Comment on above: Order Comment: 134 Result Comment: UTO X2 Performed By: #### L 501.080 #### [facility] [address] [place], [address] eGFR Normal >60 [facility] Comment on above: Order Comment: 134 Result Comment: UTO X2 Performed By: #### L 501.080 #### [facility] [address] [place], [address] GAP Normal 5-15 [facility] Comment on above: Order Comment: 134 Result Comment: UTO X2 Performed By: #### L 501.080 #### [facility] [address] [place], [address] GLU Normal 70-99 [facility] Comment on above: Order Comment: 134 Result Comment: UTO X2 Performed By: #### L 501.080 #### [facility] [address] [place], [address] Potassium Normal 3.3-5.1 [facility] Comment on above: Order Comment: 134 Result Comment: UTO X2 Performed By: #### L 501.080 #### [facility] [address] [place], [address] T BILI Normal 0.00-1.30 [facility] Comment on above: Order Comment: 134 Result Comment: UTO X2 Performed By: #### L 501.080 #### [facility] [address] [place], [address] T PROT Normal 5.9-8.4 [facility] Comment on above: Order Comment: 134 Result Comment: UTO X2 Performed By: #### L 501.080 #### [facility] [address] [place], [place], [address] Comprehensive Metabolic Profil Normal 133-145 [facility] Comment on above: Order Comment: 134 Result Comment: UTO X2 Performed By: #### L 501.080 #### [facility] [address] [place], [address] 30-TC-Jlaumlz DOrdered By: Jean Malhotra on 07-09-2024 Vitamin D 25-Hydroxy 44.8 ng/mL [facility] Comment on above: Vitamin D 25(OH) Sta tus Range Deficiency <20 ng/mL (50nmol/L) Insufficiency 20 - 30 ng/mL (50 - 75 nmol/L) Sufficiency 30 - 100 ng/mL (75 - 250 nmol/L) Toxicity >100 ng/mL (>250 nmol/L) Absolute lymphocyte countOrd ered By: Shayna Malhotra on 07-09-2024 Lymphocytes Auto (Unsp spec) [#/Vol] 0.82 10*3/uL Low 0.83-4.51 [facility] Absolute neutrophil countOrd ered By: Shayna Malhotra on 07-09-2024 Neutrophils (Bld) [#/Vol] 2.6 10*3/uL 2.0-7.7 [facility] Albumin to globulin ratioOrd ered By: Shayna Malhotra on 07-09-2024 Albumin/Globulin [Mass ratio] 0.6 {ratio} Low 0.9-2.4 [facility] Automated lymphocyte count a s percentage of total leukocytesOrdered By: Shayna Malhotra on 07-09-2024 Lymphocytes/100 WBC Auto (Unsp spec) 20.2 % 19-41 [facility] Basophil percentageOrdered B y: Shayna Malhotra on 07-09-2024 Basophils/100 WBC (Bld) 1.0 % 0-1 [facility] Bilirubin, totalOrdered By: Shayna Malhotra on 07-09-2024 Bilirubin [Mass/Vol] 0.70 mg/dL 0.20-1.00 [facility] Comment on above: For patients on eltr ombopag therapy, use of Dimension [place] TBIL is not recommended. Blood urea nitrogen (BUN)/cr eatinine ratioOrdered By: Shayna Malhotra on 07-09-2024 Urea nitrogen/Creatinine [Mass ratio] 22.2 mg/mg High 10-20 [facility] CBC W/Diff, Automatedon Absolute Lymph 0.82 X10 3/uL Low 0.83-4.51 [facility] Comment on above: Order Comment: 134 Performed By: #### L 500.4050, L506.1000, L501.9985, L100.0100 #### [facility] [address] [place], [address] Absolute Neut 2.6 X10 3/uL Normal 2.0-7.7 [facility] Comment on above: Order Comment: 134 Performed By: #### L 500.4050, L506.1000, L501.9985, L100.0100 #### [facility] [address] [place], [address] Basophils/100 WBC (Bld) 1.0 % Normal 0-1 [facility] Comment on above: Order Comment: 134 Performed By: #### L 500.4050, L506.1000, L501.9985, L100.0100 #### [facility] [address] [place], [address] Eosinophils/100 WBC (Bld) 5.9 % High 0-5 [facility] Comment on above: Order Comment: 134 Performed By: #### L 500.4050, L506.1000, L501.9985, L100.0100 #### [facility] [address] [place], [address] Erythrocyte distribution width (RBC) [Ratio] 15.9 % High 11.6-14.6 [facility] Comment on above: Order Comment: 134 Performed By: #### L 500.4050, L506.1000, L501.9985, L100.0100 #### [facility] [address], [address] Hematocrit (Bld) [Volume fraction] 38.2 % Normal 37-47 [facility] Comment on above: Order Comment: 134 Performed By: #### L 500.4050, L506.1000, L501.9985, L100.0100 #### [facility] [address] [place], [address] Hemoglobin (Bld) [Mass/Vol] 12.4 g/dL Normal 12.0-15.0 [facility] Comment on above: Order Comment: 134 Performed By: #### L 500.4050, L506.1000, L501.9985, L100.0100 #### [facility] [address] [place] [place], [address] IG% 0.200 Normal 0.0-0.9 [facility] Comment on above: Order Comment: 134 Result Comment: IG% - Immature Granulocytes (promyelocytes, myelocytes and metamyelocytes) > 1% indicates that a LEFT SHIFT is Present. Performed By: #### L 500.4050, L506.1000, L501.9985, L100.0100 #### [facility] [address] [place], [address] Lymphocytes/100 WBC (Bld) 20.2 % Normal 19-41 [facility] Comment on above: Order Comment: 134 Performed By: #### L 500.4050, L506.1000, L501.9985, L100.0100 #### [facility] [address] [place], [address] MCH (RBC) [Entitic mass] 29.0 pg Normal 27.0-32.0 [facility] Comment on above: Order Comment: 134 Performed By: #### L 500.4050, L506.1000, L501.9985, L100.0100 #### [facility] [address] [place], [address] MCHC (RBC) [Mass/Vol] 32.5 g/dL Normal 32-36 [facility] Comment on above: Order Comment: 134 Performed By: #### L 500.4050, L506.1000, L501.9985, L100.0100 #### [facility] [address] [place], [address] MCV (RBC) [Entitic vol] 89.5 fL Normal 81-99 [facility] Comment on above: Order Comment: 134 Performed By: #### L 500.4050, L506.1000, L501.9985, L100.0100 #### [facility] [address] [place], [address] Monocytes/100 WBC (Bld) 9.6 % Normal 0-10 [facility] Comment on above: Order Comment: 134 Performed By: #### L 500.4050, L506.1000, L501.9985, L100.0100 #### [facility] [address] [place], [address] Neutrophils/100 WBC (Bld) 63.1 % Normal 47-70 [facility] Comment on above: Order Comment: 134 Performed By: #### L 500.4050, L506.1000, L501.9985, L100.0100 #### [facility] [address] [place], [address] Nucleated RBC (Bld) [#/Vol] 0 10*3/uL Normal 0-5 [facility] Comment on above: Order Comment: 134 Performed By: #### L 500.4050, L506.1000, L501.9985, L100.0100 #### [facility] [address] [place], [address] Platelet mean volume (Bld) [Entitic vol] 11.0 fL Normal 6.2-12.0 [facility] Comment on above: Order Comment: 134 Performed By: #### L 500.4050, L506.1000, L501.9985, L100.0100 #### [facility] [address] [place], [address] Platelets (Bld) [#/Vol] 116 10*3/uL Low 150-450 [facility] Comment on above: Order Comment: 134 Performed By: #### L 500.4050, L506.1000, L501.9985, L100.0100 #### [facility] [address] [place], [address] RBC (Bld) [#/Vol] 4.27 10*6/uL Normal 4.2-5.4 [facility] Comment on above: Order Comment: 134 Performed By: #### L 500.4050, L506.1000, L501.9985, L100.0100 #### [facility] [address] [place], [address] RDW SD 52.1 fl High 35.1-43.9 [facility] Comment on above: Order Comment: 134 Performed By: #### L 500.4050, L506.1000, L501.9985, L100.0100 #### [facility] [address] [place], [address] WBC (Bld) [#/Vol] 4.1 10*3/uL Low 4.4-11.0 [facility] Comment on above: Order Comment: 134 Performed By: #### L 500.4050, L506.1000, L501.9985, L100.0100 #### [facility] [address] [place], [address] Carbon dioxide measurementOr dered By: Shayna Malhotra on 07-09-2024 CO2 [Moles/Vol] 25.0 mmol/L 21.0-32.0 [facility] Chloride measurementOrdered By: Shayna Malhotra on 07-09-2024 Chloride [Moles/Vol] 107 mmol/L 98-107 [facility] Comprehensive Metabolic Prof ilon 07-09-2024 Albumin [Mass/Vol] 3.1 g/dL Low 3.2-5.0 [facility] Comment on above: Order Comment: 134 Performed By: #### L 500.4050, L506.1000, L501.9985, L100.0100 #### [facility] [address] [place], [address] Albumin/Globulin [Mass ratio] 0.6 {ratio} Low 0.9-2.4 [facility] Comment on above: Order Comment: 134 Performed By: #### L 500.4050, L506.1000, L501.9985, L100.0100 #### [facility] [address] [place], [address] ALK P 126 U/L High 45-117 [facility] Comment on above: Order Comment: 134 Performed By: #### L 500.4050, L506.1000, L501.9985, L100.0100 #### [facility] [address] [place], [address] ALT [Catalytic activity/Vol] 27 U/L Normal 13-56 [facility] Comment on above: Order Comment: 134 Performed By: #### L 500.4050, L506.1000, L501.9985, L100.0100 #### [facility] [address] [place], [address] AST [Catalytic activity/Vol] 35 U/L Normal 15-37 [facility] Comment on above: Order Comment: 134 Performed By: #### L 500.4050, L506.1000, L501.9985, L100.0100 #### [facility] [address] [place], [address] Bilirubin [Mass/Vol] 0.70 mg/dL Normal 0.20-1.00 [facility] Comment on above: Order Comment: 134 Result Comment: For patients on eltrombopag therapy, use of Dimension [place] TBIL is not recommended. Performed By: #### L 500.4050, L506.1000, L501.9985, L100.0100 #### [facility] [address] [place], [address] BUN/CRE 22.2 RATIO High 10-20 [facility] Comment on above: Order Comment: 134 Performed By: #### L 500.4050, L506.1000, L501.9985, L100.0100 #### [facility] [address] [place], [address] CA,Total 9.3 mg/dL Normal 8.5-10.1 [facility] Comment on above: Order Comment: 134 Performed By: #### L 500.4050, L506.1000, L501.9985, L100.0100 #### [facility] [address] [place], [address] Chloride [Moles/Vol] 107 mmol/L Normal 98-107 [facility] Comment on above: Order Comment: 134 Performed By: #### L 500.4050, L506.1000, L501.9985, L100.0100 #### [facility] [address] [place], [address] CO2 [Moles/Vol] 25.0 mmol/L Normal 21.0-32.0 [facility] Comment on above: Order Comment: 134 Performed By: #### L 500.4050, L506.1000, L501.9985, L100.0100 #### [facility] [address] [place], [address] Creatinine [Mass/Vol] 0.76 mg/dL Normal 0.55-1.02 [facility] Comment on above: Order Comment: 134 Result Comment: The validity of the calculated GFR GFRAA in patients over 70 years has not been determined. Clinical correlation is essential. Performed By: #### L 500.4050, L506.1000, L501.9985, L100.0100 #### [facility] [address] [place], [address] EST GFR - AA 96 mL/min Normal >60 [facility] Comment on above: Order Comment: 134 Result Comment: Afri can [place] GFR Calc Performed By: #### L 500.4050, L506.1000, L501.9985, L100.0100 #### [facility] [address] [place], [address] GAP 5 Normal 5-15 [facility] Comment on above: Order Comment: 134 Performed By: #### L 500.4050, L506.1000, L501.9985, L100.0100 #### [facility] [address] [place], [address] GFR/1.73 sq M.predicted among non-blacks MDRD (S/P/Bld) [Vol rate/Area] 79 mL/min/{1.73_m2} Normal >60 [facility] Comment on above: Order Comment: 134 Result Comment: Non- GFR Calc Performed By: #### L 500.4050, L506.1000, L501.9985, L100.0100 #### [facility] [address] [place], [address] Globulin (S) [Mass/Vol] 4.9 g/dL High 2.2-4.2 [facility] Comment on above: Order Comment: 134 Performed By: #### L 500.4050, L506.1000, L501.9985, L100.0100 #### [facility] [address] [place], [address] Glucose [Mass/Vol] 168 mg/dL High 74-106 [facility] Comment on above: Order Comment: 134 Result Comment: Fast ing Glucose result greater than or equal to 126 mg/dL suggests DIABETES MELLITUS per A.D.A. criteria. Performed By: #### L 500.4050, L506.1000, L501.9985, L100.0100 #### [facility] [address] [place], [address] Potassium [Moles/Vol] 4.2 mmol/L Normal 3.5-5.1 [facility] Comment on above: Order Comment: 134 Performed By: #### L 500.4050, L506.1000, L501.9985, L100.0100 #### [facility] [address] [place], [address] Sodium [Moles/Vol] 137 mmol/L Normal 136-145 [facility] Comment on above: Order Comment: 134 Performed By: #### L 500.4050, L506.1000, L501.9985, L100.0100 #### [facility] [address] [place], [address] T PROT 8.0 g/dL Normal 6.4-8.2 [facility] Comment on above: Order Comment: 134 Performed By: #### L 500.4050, L506.1000, L501.9985, L100.0100 #### [facility] [address] [place], [address] Urea nitrogen [Mass/Vol] 17 mg/dL Normal 7-18 [facility] Comment on above: Order Comment: 134 Performed By: #### L 500.4050, L506.1000, L501.9985, L100.0100 #### [facility] [address] [place], [address] Eosinophil percentageOrdered By: Shayna Malhotra on 07-09-2024 Eosinophils/100 WBC (Bld) 5.9 % High 0-5 [facility] Erythrocyte distribution wid th (RBC) [Ratio]Ordered By: Shayna Malhotra on 07-09-2024 Erythrocyte distribution width (RBC) [Entitic vol] 52.1 fL High 35.1-43.9 [facility] Erythrocyte distribution wid th ratioOrdered By: Shayna Malhotra on 07-09-2024 Erythrocyte distribution width (RBC) [Ratio] 15.9 % High 11.6-14.6 [facility] Erythrocyte distribution wid th standard deviationOrdered By: Shayna Malhotra on 07-09-2024 Erythrocyte distribution width (RBC) [Ratio] 52.1 fl High 35.1-43.9 [facility] Estimated glomerular filtrat ion rate (GFR) AmericanOrdered By: Shayna Malhotra on 07-09-2024 Estimated GFR (MDRD) Amer 96 mL/min >60 [facility] Comment on above: GFR Calc Glomerular filtration rate ( GFR) estimationOrdered By: Shayna Malhotra on 07-09-2024 Estimated GFR (MDRD) Non-Af Amer 79 mL/min >60 [facility] Comment on above: Non- GFR Calc GFR/1.73 sq M.predicted among non-blacks MDRD (S/P/Bld) [Vol rate/Area] 79 mL/min/{1.73_m2} >60 [facility] Comment on above: Non- GFR Calc Glucose measurementOrdered B y: Shayna Malhotra on 07-09-2024 Glucose [Mass/Vol] 168 mg/dL High 74-106 [facility] Comment on above: Fasting Glucose resu lt greater than or equal to 126 mg/dL suggests DIABETES MELLITUS per A.D.A. criteria. Hematocrit Auto (Bld) [Volum e fraction]Ordered By: Shayna Malhotra on 07-09-2024 Hematocrit (Bld) [Volume fraction] 38.2 % 37-47 [facility] Hemoglobin A1con 07-09-2024 HbA1c (Bld) [Mass fraction] 6.6 % High 3.8-5.6 [facility] Comment on above: Order Comment: 134 Result Comment: Norm al < 5.7 % Prediabetic 5.7 - 6.4 % Diabetic >or= 6.5 % Please note range changes. Performed By: #### L 503.0106 #### [facility] [place], [address] Hemoglobin A1c percentageOrd ered By: Shayna Malhotra on 07-09-2024 HbA1c (Bld) [Mass fraction] 6.6 % High 3.8-5.6 [facility] Comment on above: Normal < 5.7 % Predi abetic 5.7 - 6.4 % Diabetic >or= 6.5 % Please note range changes. Hemoglobin measurementOrdere d By: Shanya Malhotra on 07-09-2024 Hemoglobin (Bld) [Mass/Vol] 12.4 g/dL 12.0-15.0 [facility] Immature granulocytes/100 WB C Auto (Bld)Ordered By: Shayna Malhotra on 07-09-2024 Immature granulocytes/100 WBC (Bld) 0.200 % 0.0-0.9 [facility] Comment on above: IG% - Immature Granu locytes (promyelocytes, myelocytes and metamyelocytes) > 1% indicates that a LEFT SHIFT is Present. Laboratory - Chemistry and C hemistry - challengeOrdered By: Shayna Malhotra on 07-09-2024 AST [Catalytic activity/Vol] 35 U/L 15-37 [facility] Lymphocytes Auto (Unsp spec) [#/Vol]Ordered By: Shayna Malhotra on 07-09-2024 Lymphocytes (Bld) [#/Vol] 0.82 10*3/uL Low 0.83-4.51 [facility] Lymphocytes/100 WBC Auto (Un sp spec)Ordered By: Shayna Malhotra on 07-09-2024 Lymphocytes/100 WBC (Bld) 20.2 % 19-41 [facility] MCV (mean corpuscular volume ) determinationOrdered By: Shayna Malhotra on 07-09-2024 MCV (RBC) [Entitic vol] 89.5 fL 81-99 [facility] Mean corpuscular hemoglobin (MCH) determinationOrdered By: Shayna Malhotra on 07-09-2024 MCH (RBC) [Entitic mass] 29.0 pg 27.0-32.0 [facility] Mean corpuscular hemoglobin concentration (MCHC) determinationOrdered By: Shayna Malhotra on 07-09-2024 MCHC (RBC) [Mass/Vol] 32.5 g/dL 32-36 [facility] Mean platelet volume determi nationOrdered By: Shayna Malhotra on 07-09-2024 Platelet mean volume (Bld) [Entitic vol] 11.0 fL 6.2-12.0 [facility] Monocyte percentageOrdered B y: Shayna Malhotra on 07-09-2024 Monocytes/100 WBC (Bld) 9.6 % 0-10 [facility] Neutrophil percentageOrdered By: Shayna Malhotra on 07-09-2024 Neutrophils/100 WBC (Bld) 63.1 % 47-70 [facility] Nucleated red blood cell per centageOrdered By: Shayna Malhotra on 07-09-2024 Nucleated RBC/100 WBC (Bld) [Ratio] 0 % 0-5 [facility] Platelet countOrdered By: Maryanne Malhotra on 07-09-2024 Platelets (Bld) [#/Vol] 116 10*3/uL Low 150-450 [facility] Potassium measurementOrdered By: Shayna Malhotra on 07-09-2024 Potassium [Moles/Vol] 4.2 mmol/L 3.5-5.1 [facility] RBC Auto (Bld) [#/Vol]Ordere d By: Shayna Malhotra on 07-09-2024 RBC (Bld) [#/Vol] 4.27 10*6/uL 4.2-5.4 [facility] Serum anion gap measurementO rdered By: Shayna Malhotra on 07-09-2024 Anion gap [Moles/Vol] 5 mmol/L 5-15 [facility] Serum globulin measurementOr dered By: Shayna Malhotra on 07-09-2024 Globulin (S) [Mass/Vol] 4.9 g/dL High 2.2-4.2 [facility] Serum or plasma alanine burnette otransferase (ALT) measurementOrdered By: Shayna Malhotra on 07-09-2024 ALT [Catalytic activity/Vol] 27 U/L 13-56 [facility] Serum or plasma albumin kim urement (mass/volume)Ordered By: Shayna Malhotra on 07-09-2024 Albumin [Mass/Vol] 3.1 g/dL Low 3.2-5.0 [facility] Serum or plasma alkaline regina sphatase measurementOrdered By: Shayna Malhotra on 07-09-2024 ALP [Catalytic activity/Vol] 126 U/L High 45-117 [facility] Serum or plasma calcium kim urement (mass/volume)Ordered By: Shayna Malhotra on 07-09-2024 Calcium [Mass/Vol] 9.3 mg/dL 8.5-10.1 [facility] Serum or plasma creatinine m easurement (mass/volume)Ordered By: Shayna Malhotra on 07-09-2024 Creatinine [Mass/Vol] 0.76 mg/dL 0.55-1.02 [facility] Comment on above: The validity of the calculated GFR & GFRAA in patients over 70 years has not been determined. Clinical correlation is essential. Serum or plasma urea nitroge n measurement (mass/volume)Ordered By: Shayna Malhotra on 07-09-2024 Urea nitrogen [Mass/Vol] 17 mg/dL 7-18 [facility] Sodium levelOrdered By: Paty Malhotra on 07-09-2024 Sodium [Moles/Vol] 137 mmol/L 136-145 [facility] Total proteinOrdered By: Evi Malhotra on 07-09-2024 Protein [Mass/Vol] 8.0 g/dL 6.4-8.2 [facility] Vitamin D,25 Hydroxyon 07-09 Vitamin D 25-OH 44.8 ng/mL Normal [facility] Comment on above: Order Comment: 134 Result Comment: Maricarmen min D 25(OH) Status Range Deficiency <20 ng/mL (50nmol/L) Insufficiency 20 - 30 ng/mL (50 - 75 nmol/L) Sufficiency 30 - 100 ng/mL (75 - 250 nmol/L) Toxicity >100 ng/mL (>250 nmol/L) Performed By: #### L 500.4050, L506.1000, L501.9985, L100.0100 #### [facility] [address] [place], [address] White blood cell (WBC) count Ordered By: Shayna Malhotra on 07-09-2024 WBC (Bld) [#/Vol] 4.1 10*3/uL Low 4.4-11.0 [facility] MR/BMS.[facility] 07-04-2024 MR/BMS.IMB [facility] [address] [place] [address] OFFICE VISIT Date of Service: 07/04/24 MR#: [id number] Acct: [id number] Name: VIDA NINA Rep #: [id number] : 1950 Provider: Dr. Shayna gomes MD Age/Sex: 73/F [place] [facility] [place] Status: Signed Intake Vital Signs 05/28/24 [...] Ankle Pain Chief Complaint: L ankle pain First Officer Required: No Accompanied by: Self Is patient [...] TID #0 grams 11/24/21 07/04/24 Rx powder ([facility]) quetiapine 100 mg tablet 300 mg (3 [...] a c (more content not included)... Normal [facility] MR/[facility] 05-28-2024 MR/BMS.B [facility] [address] [place], [place] [id number] OFFICE VISIT Date of Service: 05/28/24 MR#: [id number] Acct: [id number] Name: VIDA NINA Rep #: [id number] : 1950 Provider: Dr. Shayna gomes MD Age/Sex: 73/F Location[place] [facility] [place] Status: Signed Intake Vital Signs 01/09/23 17:15 [...] Intake Visit Reasons: Annual/Physical Chief Complaint: annual/physical First Officer Required: No Accompanied by: Self Is patient [...] TID #0 grams 11/24/21 05/28/24 Rx powder ([facility]) quetiapine 100 mg tablet 300 mg (3 [...] here in the office. She lives at [facility]. She checked herself in there a few years ago as she felt it was in (more content not included)... Normal [facility] CBC W/Diff, Automatedon 11-0 -2023 Absolute Lymph 0.98 X10 3/uL Normal 0.83-4.51 [facility] Comment on above: Order Comment: 134 Performed By: #### L 500.4050, L506.1000, L100.0100, L501.9985 #### [facility] [address] [facility] [address] Absolute Neut 2.6 X10 3/uL Normal 2.0-7.7 [facility] Comment on above: Order Comment: 134 Performed By: #### L 500.4050, L506.1000, L100.0100, L501.9985 #### [facility] [address] [place], [address] Basophils/100 WBC (Bld) 0.7 % Normal 0-1 [facility] Comment on above: Order Comment: 134 Performed By: #### L 500.4050, L506.1000, L100.0100, L501.9985 #### [facility] [address] [place], [address] Eosinophils/100 WBC (Bld) 4.1 % Normal 0-5 [facility] Comment on above: Order Comment: 134 Performed By: #### L 500.4050, L506.1000, L100.0100, L501.9985 #### [facility] [address] [place], [address] Erythrocyte distribution width (RBC) [Ratio] 15.2 % High 11.6-14.6 [facility] Comment on above: Order Comment: 134 Performed By: #### L 500.4050, L506.1000, L100.0100, L501.9985 #### [facility] [address] [place], [address] Hematocrit (Bld) [Volume fraction] 39.8 % Normal 37-47 [facility] Comment on above: Order Comment: 134 Performed By: #### L 500.4050, L506.1000, L100.0100, L501.9985 #### [facility] [address] [place], [address] Hemoglobin (Bld) [Mass/Vol] 12.5 g/dL Normal 12.0-15.0 [facility] Comment on above: Order Comment: 134 Performed By: #### L 500.4050, L506.1000, L100.0100, L501.9985 #### [facility] [address] [place], [address] IG% 0.200 Normal 0.0-0.9 [facility] Comment on above: Order Comment: 134 Result Comment: IG% - Immature Granulocytes (promyelocytes, myelocytes and metamyelocytes) > 1% indicates that a LEFT SHIFT is Present. Performed By: #### L 500.4050, L506.1000, L100.0100, L501.9985 #### [facility] [address] [place], [address] Lymphocytes/100 WBC (Bld) 23.9 % Normal 19-41 [facility] Comment on above: Order Comment: 134 Performed By: #### L 500.4050, L506.1000, L100.0100, L501.9985 #### [facility] [address] [place], [address] MCH (RBC) [Entitic mass] 28.4 pg Normal 27.0-32.0 [facility] Comment on above: Order Comment: 134 Performed By: #### L 500.4050, L506.1000, L100.0100, L501.9985 #### [facility] [address] [place], [address] MCHC (RBC) [Mass/Vol] 31.4 g/dL Low 32-36 [facility] Comment on above: Order Comment: 134 Performed By: #### L 500.4050, L506.1000, L100.0100, L501.9985 #### [facility] [address] [place], [address] MCV (RBC) [Entitic vol] 90.5 fL Normal 81-99 [facility] Comment on above: Order Comment: 134 Performed By: #### L 500.4050, L506.1000, L100.0100, L501.9985 #### [facility] [address] [place], [address] Monocytes/100 WBC (Bld) 8.5 % Normal 0-10 [facility] Comment on above: Order Comment: 134 Performed By: #### L 500.4050, L506.1000, L100.0100, L501.9985 #### [facility] [address] [place], [address] Neutrophils/100 WBC (Bld) 62.6 % Normal 47-70 [facility] Comment on above: Order Comment: 134 Performed By: #### L 500.4050, L506.1000, L100.0100, L501.9985 #### [facility] [address] [place], [address] Nucleated RBC (Bld) [#/Vol] 0 10*3/uL Normal 0-5 [facility] Comment on above: Order Comment: 134 Performed By: #### L 500.4050, L506.1000, L100.0100, L501.9985 #### [facility] [address] [place], [address] Platelet mean volume (Bld) [Entitic vol] 11.4 fL Normal 6.2-12.0 [facility] Comment on above: Order Comment: 134 Performed By: #### L 500.4050, L506.1000, L100.0100, L501.9985 #### [facility] [address] [place], [address] Platelets (Bld) [#/Vol] 107 10*3/uL Low 150-450 [facility] Comment on above: Order Comment: 134 Performed By: #### L 500.4050, L506.1000, L100.0100, L501.9985 #### [facility] [address] [place], [address] RBC (Bld) [#/Vol] 4.40 10*6/uL Normal 4.2-5.4 [facility] Comment on above: Order Comment: 134 Performed By: #### L 500.4050, L506.1000, L100.0100, L501.9985 #### [facility] [address] [place], [address] RDW SD 50.8 fl High 35.1-43.9 [facility] Comment on above: Order Comment: 134 Performed By: #### L 500.4050, L506.1000, L100.0100, L501.9985 #### [facility] [address] [place], [address] WBC (Bld) [#/Vol] 4.1 10*3/uL Low 4.4-11.0 [facility] Comment on above: Order Comment: 134 Performed By: #### L 500.4050, L506.1000, L100.0100, L501.9985 #### [facility] [address] [place], [address] Comprehensive Metabolic Prof ilon 04-09-2024 Albumin [Mass/Vol] 3.1 g/dL Low 3.2-5.0 [facility] Comment on above: Order Comment: 134 Performed By: #### L 500.4050, L506.1000, L100.0100, L501.9985 #### [facility] [address] [place], [address] Albumin/Globulin [Mass ratio] 0.7 {ratio} Low 0.9-2.4 [facility] Comment on above: Order Comment: 134 Performed By: #### L 500.4050, L506.1000, L100.0100, L501.9985 #### [facility] [address] [place], [address] ALK P 146 U/L High 45-117 [facility] Comment on above: Order Comment: 134 Performed By: #### L 500.4050, L506.1000, L100.0100, L501.9985 #### [facility] [address] [place], [address] ALT [Catalytic activity/Vol] 32 U/L Normal 13-56 [facility] Comment on above: Order Comment: 134 Performed By: #### L 500.4050, L506.1000, L100.0100, L501.9985 #### [facility] [address] [place], [address] AST [Catalytic activity/Vol] 36 U/L Normal 15-37 [facility] Comment on above: Order Comment: 134 Performed By: #### L 500.4050, L506.1000, L100.0100, L501.9985 #### [facility] [address] [place], [address] Bilirubin [Mass/Vol] 0.50 mg/dL Normal 0.20-1.00 [facility] Comment on above: Order Comment: 134 Result Comment: For patients on eltrombopag therapy, use of Dimension [place] TBIL is not recommended. Performed By: #### L 500.4050, L506.1000, L100.0100, L501.9985 #### [facility] [address] [place], [address] BUN/CRE 19.4 RATIO Normal 10-20 [facility] Comment on above: Order Comment: 134 Performed By: #### L 500.4050, L506.1000, L100.0100, L501.9985 #### [facility] [address] [place], [address] CA,Total 9.1 mg/dL Normal 8.5-10.1 [facility] Comment on above: Order Comment: 134 Performed By: #### L 500.4050, L506.1000, L100.0100, L501.9985 #### [facility] [address] [place], [address] Chloride [Moles/Vol] 109 mmol/L High 98-107 [facility] Comment on above: Order Comment: 134 Performed By: #### L 500.4050, L506.1000, L100.0100, L501.9985 #### [facility] [address] [place], [address] CO2 [Moles/Vol] 25.0 mmol/L Normal 21.0-32.0 [facility] Comment on above: Order Comment: 134 Performed By: #### L 500.4050, L506.1000, L100.0100, L501.9985 #### [facility] [address] [place], [address] Creatinine [Mass/Vol] 0.82 mg/dL Normal 0.55-1.02 [facility] Comment on above: Order Comment: 134 Result Comment: The validity of the calculated GFR GFRAA in patients over 70 years has not been determined. Clinical correlation is essential. Performed By: #### L 500.4050, L506.1000, L100.0100, L501.9985 #### [facility] [address] [place], [address] EST GFR - AA 88 mL/min Normal >60 [facility] Comment on above: Order Comment: 134 Result Comment: Afri can [place] GFR Calc Performed By: #### L 500.4050, L506.1000, L100.0100, L501.9985 #### [facility] [address] [place], [address] GAP 5 Normal 5-15 [facility] Comment on above: Order Comment: 134 Performed By: #### L 500.4050, L506.1000, L100.0100, L501.9985 #### [facility] [address] [place], [address] GFR/1.73 sq M.predicted among non-blacks MDRD (S/P/Bld) [Vol rate/Area] 73 mL/min/{1.73_m2} Normal >60 [facility] Comment on above: Order Comment: 134 Result Comment: Non- GFR Calc Performed By: #### L 500.4050, L506.1000, L100.0100, L501.9985 #### [facility] [address] [place], [address] Globulin (S) [Mass/Vol] 4.7 g/dL High 2.2-4.2 [facility] Comment on above: Order Comment: 134 Performed By: #### L 500.4050, L506.1000, L100.0100, L501.9985 #### [facility] [address] [place], [address] Glucose [Mass/Vol] 209 mg/dL High 74-106 [facility] Comment on above: Order Comment: 134 Result Comment: Gluc ose result greater than or equal to 200 mg/dL suggests DIABETES MELLITUS per A.D.A. criteria. Performed By: #### L 500.4050, L506.1000, L100.0100, L501.9985 #### [facility] [address] [place], [address] Potassium [Moles/Vol] 4.3 mmol/L Normal 3.5-5.1 [facility] Comment on above: Order Comment: 134 Performed By: #### L 500.4050, L506.1000, L100.0100, L501.9985 #### [facility] [address] [place], [address] Sodium [Moles/Vol] 139 mmol/L Normal 136-145 [facility] Comment on above: Order Comment: 134 Performed By: #### L 500.4050, L506.1000, L100.0100, L501.9985 #### [facility] [address] [place], [address] T PROT 7.8 g/dL Normal 6.4-8.2 [facility] Comment on above: Order Comment: 134 Performed By: #### L 500.4050, L506.1000, L100.0100, L501.9985 #### [facility] [address] [place], [address] Urea nitrogen [Mass/Vol] 16 mg/dL Normal 7-18 [facility] Comment on above: Order Comment: 134 Performed By: #### L 500.4050, L506.1000, L100.0100, L501.9985 #### [facility] [address] [place], [address] Hemoglobin A1con 04-09-2024 HbA1c (Bld) [Mass fraction] 7.9 % High 3.8-5.6 [facility] Comment on above: Order Comment: 134 Result Comment: Norm al < 5.7 % Prediabetic 5.7 - 6.4 % Diabetic >or= 6.5 % Please note range changes. Performed By: #### L 500.4050, L506.1000, L100.0100, L501.9985 #### [facility] [address] [place], [place], [address] Vitamin D,25 Hydroxyon 04-09 Vitamin D 25-OH 40.0 ng/mL Normal [facility] Comment on above: Order Comment: 134 Result Comment: Maricarmen min D 25(OH) Status Range Deficiency <20 ng/mL (50nmol/L) Insufficiency 20 - 30 ng/mL (50 - 75 nmol/L) Sufficiency 30 - 100 ng/mL (75 - 250 nmol/L) Toxicity >100 ng/mL (>250 nmol/L) Performed By: #### L 500.4050, L506.1000, L100.0100, L501.9985 #### [facility] [address] [place], [place], [address] Absolute lymphocyte countOrd ered By: Shayna Malhotra on 07-08-2023 Lymphocytes Auto (Unsp spec) [#/Vol] 0.97 10*3/uL 0.83-4.51 [facility] Automated lymphocyte count a s percentage of total leukocytesOrdered By: Shayna Malhotra on 07-08-2023 Lymphocytes/100 WBC Auto (Unsp spec) 21.6 % 19-41 [facility] Basophil percentageOrdered B y: Shayna Malhotra on 07-08-2023 Basophils/100 WBC (Bld) 0.7 % 0-1 [facility] Bilirubin [Mass/Vol] 0.60 mg/dL 0.20-1.00 [facility] Comment on above: For patients on eltr ombopag therapy, use of Dimension [place] TBIL is not recommended. Chloride [Moles/Vol] 109 mmol/L 98-107 [facility] Eosinophils/100 WBC (Bld) 2.4 % 0-5 [facility] Glucose [Mass/Vol] 204 mg/dL 74-106 [facility] Comment on above: Glucose result great er than or equal to 200 mg/dLsuggests DIABETES MELLITUS per A.D.A. criteria. Hemoglobin (Bld) [Mass/Vol] 12.6 g/dL 12.0-15.0 [facility] Monocytes/100 WBC (Bld) 8.7 % 0-10 [facility] Neutrophils (Bld) [#/Vol] 3.0 10*3/uL 2.0-7.7 [facility] Neutrophils/100 WBC (Bld) 66.4 % 47-70 [facility] Potassium [Moles/Vol] 4.4 mmol/L 3.5-5.1 [facility] Protein [Mass/Vol] 8.0 g/dL 6.4-8.2 [facility] Sodium [Moles/Vol] 137 mmol/L 136-145 [facility] WBC (Bld) [#/Vol] 4.5 10*3/uL 4.4-11.0 [facility] Determination of erythrocyte mean corpuscular volume (MCV)Ordered By: Shayna Malhotra on 07-08-2023 MCV (RBC) [Entitic vol] 90.3 fL 81-99 [facility] Erythrocyte distribution wid th ratioOrdered By: Shayna Malhotra on 07-08-2023 Erythrocyte distribution width (RBC) [Ratio] 15.5 % 11.6-14.6 [facility] Erythrocyte distribution wid th standard deviationOrdered By: Shayna Malhotra on 07-08-2023 Erythrocyte distribution width (RBC) [Entitic vol] 51.9 fL 35.1-43.9 [facility] Hematocrit Auto (Bld) [Volum e fraction]Ordered By: Shayna Malhotra on 07-08-2023 Hematocrit (Bld) [Volume fraction] 39.9 % 37-47 [facility] Immature granulocytes/100 WB C Auto (Bld)Ordered By: Shayna Malhotra on 07-08-2023 Immature granulocytes/100 WBC (Bld) 0.200 % 0.0-0.9 [facility] Comment on above: IG% - Immature Granu locytes (promyelocytes, myelocytes and metamyelocytes) > 1% indicates that a LEFT SHIFT is Present. Laboratory - Chemistry and C hemistry - challengeOrdered By: Shayna Malhotra on 07-08-2023 Albumin/Globulin [Mass ratio] 0.7 {ratio} 0.9-2.4 [facility] ALP [Catalytic activity/Vol] 126 U/L 45-117 [facility] ALT [Catalytic activity/Vol] 34 U/L 13-56 [facility] CO2 [Moles/Vol] 24.0 mmol/L 21.0-32.0 [facility] Globulin (S) [Mass/Vol] 4.7 g/dL 2.2-4.2 [facility] Urea nitrogen/Creatinine [Mass ratio] 17.2 mg/mg 10-20 [facility] Laboratory - Hematology and Cell countsOrdered By: Shayna Malhotra on 07-08-2023 MCH (RBC) [Entitic mass] 28.5 pg 27.0-32.0 [facility] MCHC (RBC) [Mass/Vol] 31.6 g/dL 32-36 [facility] Nucleated RBC/100 WBC (Bld) [Ratio] 0 % 0-5 [facility] Platelets (Bld) [#/Vol] 130 10*3/uL 150-450 [facility] No Panel InformationOrdered By: Shayna Malhotra on 07-08-2023 Estimated GFR (MDRD) Amer 83 mL/min >60 [facility] Comment on above: GFR Calc Estimated GFR (MDRD) Non-Af Amer 68 mL/min >60 [facility] Comment on above: Non- GFR Calc Vitamin D 25-Hydroxy 36.2 ng/mL [facility] Comment on above: Vitamin D 25(OH) Sta tus Range Deficiency <20 ng/mL (50nmol/L) Insufficiency 20 - 30 ng/mL (50 - 75 nmol/L) Sufficiency 30 - 100 ng/mL (75 - 250 nmol/L) Toxicity >100 ng/mL (>250 nmol/L) Platelet mean volume Robert-Ec ker (Bld) [Entitic vol]Ordered By: Shayna Malhotra on 07-08-2023 Platelet mean volume (Bld) [Entitic vol] 11.5 fL 6.2-12.0 [facility] RBC Auto (Bld) [#/Vol]Ordere d By: Shayna Malhotra on 07-08-2023 RBC (Bld) [#/Vol] 4.42 10*6/uL 4.2-5.4 [facility] Serum or plasma calcium kim urement (mass/volume)Ordered By: Shayna Malhotra on 07-08-2023 Calcium [Mass/Vol] 9.3 mg/dL 8.5-10.1 [facility] Serum or plasma creatinine m easurement (mass/volume)Ordered By: Shayna Malhotra on 07-08-2023 Creatinine [Mass/Vol] 0.87 mg/dL 0.55-1.02 [facility] Comment on above: The validity of the calculated GFR & GFRAA in patients over 70 years has not been determined. Clinical correlation is essential. Serum or plasma urea nitroge n measurement (mass/volume)Ordered By: Shayna Malhotra on 07-08-2023 Urea nitrogen [Mass/Vol] 15 mg/dL 7-18 [facility] Thin prep Papanicolaou smear with manual screeningOrdered By: Shayna Malhotra on 07-08-2023 Thin prep Papanicolaou smear with manual screening 3.3 g/dL 3.2-5.0 [facility] Thin prep Papanicolaou smear with manual screening 38 U/L 15-37 [facility] Thin prep Papanicolaou smear with manual screening 4 5-15 [facility] Whole blood hemoglobin A1c/t otal hemoglobin ratio (mass fraction)Ordered By: Shayna Malhotra on 07-08-2023 HbA1c (Bld) [Mass fraction] 7.5 % 3.8-5.6 [facility] Comment on above: Normal < 5.7 % Predi abetic 5.7 - 6.4 % Diabetic >or= 6.5 % Please note range changes. Absolute lymphocyte countOrd ered By: [facility] on 04-08-2023 Lymphocytes Auto (Unsp spec) [#/Vol] 1.16 10*3/uL 0.83-4.51 [facility] Basophil percentageOrdered B y: [facility] on 04-08-2023 Basophils/100 WBC (Bld) 0.6 % 0-1 [facility] Bilirubin [Mass/Vol] 0.60 mg/dL 0.20-1.00 [facility] Comment on above: For patients on eltr ombopag therapy, use of Dimension [place] TBIL is not recommended. Chloride [Moles/Vol] 106 mmol/L 98-107 [facility] Eosinophils/100 WBC (Bld) 2.6 % 0-5 [facility] Glucose [Mass/Vol] 200 mg/dL 74-106 [facility] Comment on above: Glucose result great er than or equal to 200 mg/dLsuggests DIABETES MELLITUS per A.D.A. criteria. Neutrophils (Bld) [#/Vol] 3.3 10*3/uL 2.0-7.7 [facility] Neutrophils/100 WBC (Bld) 65.4 % 47-70 [facility] Potassium [Moles/Vol] 4.2 mmol/L 3.5-5.1 [facility] Protein [Mass/Vol] 8.1 g/dL 6.4-8.2 [facility] Sodium [Moles/Vol] 136 mmol/L 136-145 [facility] WBC (Bld) [#/Vol] 5.0 10*3/uL 4.4-11.0 [facility] Blood erythrocytes count (nu mber/volume)Ordered By: [facility] on 04-08-2023 RBC (Bld) [#/Vol] 4.50 10*6/uL 4.2-5.4 [facility] Blood hemoglobin measurement (mass/volume)Ordered By: [facility] on 04-08-2023 Hemoglobin (Bld) [Mass/Vol] 12.9 g/dL 12.0-15.0 [facility] Blood lymphocytes/100 leukoc ytesOrdered By: [facility] on 04-08-2023 Lymphocytes/100 WBC (Bld) 23.2 % 19-41 [facility] Blood monocytes/100 leukocyt esOrdered By: [facility] on 04-08-2023 Monocytes/100 WBC (Bld) 7.8 % 0-10 [facility] Blood platelet mean volumeOr dered By: [facility] on 04-08-2023 Platelet mean volume (Bld) [Entitic vol] 11.9 fL 6.2-12.0 [facility] Determination of erythrocyte mean corpuscular volume (MCV)Ordered By: [facility] on 04-08-2023 MCV (RBC) [Entitic vol] 89.6 fL 81-99 [facility] Hematocrit Auto (Bld) [Volum e fraction]Ordered By: [facility] on 04-08-2023 Hematocrit (Bld) [Volume fraction] 40.3 % 37-47 [facility] Laboratory - Chemistry and C hemistry - challengeOrdered By: [facility] on 04-08-2023 ALP [Catalytic activity/Vol] 126 U/L 45-117 [facility] ALT [Catalytic activity/Vol] 35 U/L 13-56 [facility] CO2 [Moles/Vol] 24.0 mmol/L 21.0-32.0 [facility] Globulin (S) [Mass/Vol] 4.9 g/dL 2.2-4.2 [facility] Urea nitrogen/Creatinine [Mass ratio] 17.1 mg/mg 10-20 [facility] Laboratory - Hematology and Cell countsOrdered By: [facility] on 04-08-2023 Erythrocyte distribution width (RBC) [Entitic vol] 51.4 fL 35.1-43.9 [facility] Erythrocyte distribution width (RBC) [Ratio] 15.6 % 11.6-14.6 [facility] Immature granulocytes/100 WBC (Bld) 0.400 % 0.0-0.9 [facility] Comment on above: IG% - Immature Granu locytes (promyelocytes, myelocytes and metamyelocytes) > 1% indicates that a LEFT SHIFT is Present. MCH (RBC) [Entitic mass] 28.7 pg 27.0-32.0 [facility] Nucleated RBC/100 WBC (Bld) [Ratio] 0 % 0-5 [facility] MCHC Auto (RBC) [Mass/Vol]Or dered By: [facility] on 04-08-2023 MCHC (RBC) [Mass/Vol] 32.0 g/dL 32-36 [facility] No Panel InformationOrdered By: [facility] on 04-08-2023 Estimated GFR (MDRD) Amer 82 mL/min >60 [facility] Comment on above: GFR Calc Estimated GFR (MDRD) Non-Af Amer 68 mL/min >60 [facility] Comment on above: Non- GFR Calc Vitamin D 25-Hydroxy 43.2 ng/mL [facility] Comment on above: Vitamin D 25(OH) Sta tus Range Deficiency <20 ng/mL (50nmol/L) Insufficiency 20 - 30 ng/mL (50 - 75 nmol/L) Sufficiency 30 - 100 ng/mL (75 - 250 nmol/L) Toxicity >100 ng/mL (>250 nmol/L) Platelets bldOrdered By: [facility] on 04-08-2023 Platelets (Bld) [#/Vol] 119 10*3/uL 150-450 [facility] Serum or plasma albumin kim urement (mass/volume)Ordered By: [facility] on 04-08-2023 Albumin [Mass/Vol] 3.2 g/dL 3.2-5.0 [facility] Serum or plasma albumin/glob ulin mass ratioOrdered By: [facility] on 04-08-2023 Albumin/Globulin [Mass ratio] 0.7 {ratio} 0.9-2.4 [facility] Serum or plasma calcium kim urement (mass/volume)Ordered By: [facility] on 04-08-2023 Calcium [Mass/Vol] 9.1 mg/dL 8.5-10.1 [facility] Serum or plasma creatinine m easurement (mass/volume)Ordered By: [facility] on 04-08-2023 Creatinine [Mass/Vol] 0.88 mg/dL 0.55-1.02 [facility] Comment on above: The validity of the calculated GFR & GFRAA in patients over 70 years has not been determined. Clinical correlation is essential. Serum or plasma urea nitroge n measurement (mass/volume)Ordered By: [facility] on 04-08-2023 Urea nitrogen [Mass/Vol] 15 mg/dL 7-18 [facility] Thin prep Papanicolaou smear with manual screeningOrdered By: [facility] on 04-08-2023 Thin prep Papanicolaou smear with manual screening 36 U/L 15-37 [facility] Thin prep Papanicolaou smear with manual screening 6 5-15 [facility] Whole blood hemoglobin A1c/t otal hemoglobin ratio (mass fraction)Ordered By: [facility] on 04-08-2023 HbA1c (Bld) [Mass fraction] 7.5 % 3.8-5.6 [facility] Comment on above: Normal < 5.7 % Predi abetic 5.7 - 6.4 % Diabetic >or= 6.5 % Please note range changes. Absolute lymphocyte countOrd ered By: Shayna Malhotra on 10-13-2022 Lymphocytes Auto (Unsp spec) [#/Vol] 1.32 10*3/uL 0.83-4.51 [facility] Basophil percentageOrdered B y: Shayna Malhotra on 10-13-2022 Basophils/100 WBC (Bld) 0.6 % 0-1 [facility] Bilirubin [Mass/Vol] 0.40 mg/dL 0.20-1.00 [facility] Comment on above: For patients on eltr ombopag therapy, use of Dimension [place] TBIL is not recommended. Chloride [Moles/Vol] 106 mmol/L 98-107 [facility] Eosinophils/100 WBC (Bld) 3.5 % 0-5 [facility] Glucose [Mass/Vol] 232 mg/dL 74-106 [facility] Comment on above: Glucose result great er than or equal to 200 mg/dLsuggests DIABETES MELLITUS per A.D.A. criteria. Neutrophils (Bld) [#/Vol] 3.2 10*3/uL 2.0-7.7 [facility] Neutrophils/100 WBC (Bld) 60.7 % 47-70 [facility] Potassium [Moles/Vol] 4.7 mmol/L 3.5-5.1 [facility] Protein [Mass/Vol] 8.1 g/dL 6.4-8.2 [facility] Sodium [Moles/Vol] 137 mmol/L 136-145 [facility] WBC (Bld) [#/Vol] 5.2 10*3/uL 4.4-11.0 [facility] Blood erythrocytes count (nu mber/volume)Ordered By: Shayna Malhotra on 10-13-2022 RBC (Bld) [#/Vol] 4.62 10*6/uL 4.2-5.4 [facility] Blood hemoglobin measurement (mass/volume)Ordered By: Shayna Malhotra on 10-13-2022 Hemoglobin (Bld) [Mass/Vol] 13.1 g/dL 12.0-15.0 [facility] Blood lymphocytes/100 leukoc ytesOrdered By: Shayna Malhotra on 10-13-2022 Lymphocytes/100 WBC (Bld) 25.4 % 19-41 [facility] Blood monocytes/100 leukocyt esOrdered By: Shayna Malhotra on 10-13-2022 Monocytes/100 WBC (Bld) 9.6 % 0-10 [facility] Blood platelet mean volumeOr dered By: Shayna Malhotra on 10-13-2022 Platelet mean volume (Bld) [Entitic vol] 11.1 fL 6.2-12.0 [facility] Determination of erythrocyte mean corpuscular volume (MCV)Ordered By: Shayna Malhotra on 10-13-2022 MCV (RBC) [Entitic vol] 90.3 fL 81-99 [facility] Hematocrit Auto (Bld) [Volum e fraction]Ordered By: Shayna Malhotra on 10-13-2022 Hematocrit (Bld) [Volume fraction] 41.7 % 37-47 [facility] Laboratory - Chemistry and C hemistry - challengeOrdered By: Shayna Malhotra on 10-13-2022 ALP [Catalytic activity/Vol] 153 U/L 45-117 [facility] ALT [Catalytic activity/Vol] 45 U/L 13-56 [facility] CO2 [Moles/Vol] 25.0 mmol/L 21.0-32.0 [facility] Globulin (S) [Mass/Vol] 4.9 g/dL 2.2-4.2 [facility] Urea nitrogen/Creatinine [Mass ratio] 15.7 mg/mg 10-20 [facility] - Hematology and Cell countsOrdered By: Shayna Malhotra on 10-13-2022 Erythrocyte distribution width (RBC) [Entitic vol] 50.5 fL 35.1-43.9 [facility] Erythrocyte distribution width (RBC) [Ratio] 15.1 % 11.6-14.6 [facility] Immature granulocytes/100 WBC (Bld) 0.200 % 0.0-0.9 [facility] Comment on above: IG% - Immature Granu locytes (promyelocytes, myelocytes and metamyelocytes) > 1% indicates that a LEFT SHIFT is Present. MCH (RBC) [Entitic mass] 28.4 pg 27.0-32.0 [facility] Nucleated RBC/100 WBC (Bld) [Ratio] 0 % 0-5 [facility] MCHC Auto (RBC) [Mass/Vol]Or dered By: Shayna Malhotra on 10-13-2022 MCHC (RBC) [Mass/Vol] 31.4 g/dL 32-36 [facility] No Panel InformationOrdered By: Shayna Malhotra on 10-13-2022 Estimated GFR (MDRD) Amer 80 mL/min >60 [facility] Comment on above: GFR Calc Estimated GFR (MDRD) Non-Af Amer 66 mL/min >60 [facility] Comment on above: Non- GFR Calc Vitamin D 25-Hydroxy 57.3 ng/mL [facility] Comment on above: Vitamin D 25(OH) Sta tus Range Deficiency <20 ng/mL (50nmol/L) Insufficiency 20 - 30 ng/mL (50 - 75 nmol/L) Sufficiency 30 - 100 ng/mL (75 - 250 nmol/L) Toxicity >100 ng/mL (>250 nmol/L) Platelets bldOrdered By: Evi Malhotra on 10-13-2022 Platelets (Bld) [#/Vol] 139 10*3/uL 150-450 [facility] Serum or plasma albumin kim urement (mass/volume)Ordered By: Shayna Malhotra on 10-13-2022 Albumin [Mass/Vol] 3.2 g/dL 3.2-5.0 [facility] Serum or plasma albumin/glob ulin mass ratioOrdered By: Shayna Malhotra on 10-13-2022 Albumin/Globulin [Mass ratio] 0.7 {ratio} 0.9-2.4 [facility] Serum or plasma calcium kim urement (mass/volume)Ordered By: Shayna Malhotra on 10-13-2022 Calcium [Mass/Vol] 9.5 mg/dL 8.5-10.1 [facility] Serum or plasma creatinine m easurement (mass/volume)Ordered By: Shayna Malhotra on 10-13-2022 Creatinine [Mass/Vol] 0.89 mg/dL 0.55-1.02 [facility] Comment on above: The validity of the calculated GFR & GFRAA in patients over 70 years has not been determined. Clinical correlation is essential. Serum or plasma urea nitroge n measurement (mass/volume)Ordered By: Shayna Malhotra on 10-13-2022 Urea nitrogen [Mass/Vol] 14 mg/dL 7-18 [facility] Thin prep Papanicolaou smear with manual screeningOrdered By: Shayna Malhotra on 10-13-2022 Thin prep Papanicolaou smear with manual screening 49 U/L 15-37 [facility] Thin prep Papanicolaou smear with manual screening 6 5-15 [facility] No Panel InformationOrdered By: Shayna Malhotra on 08-12-2022 C-Peptide 2.9 ng/mL 1.1-4.4 [facility] Comment on above: C-Peptide reference interval is for fasting patients.Performed at: [facility] [id number] Director: Suhas Deal PhD, Phone: [phone] Absolute lymphocyte countOrd ered By: Shayna Malhotra on 07-13-2022 Lymphocytes Auto (Unsp spec) [#/Vol] 1.18 10*3/uL 0.83-4.51 [facility] Basophil percentageOrdered B y: Shayna Malhotra on 07-13-2022 Basophils/100 WBC (Bld) 0.7 % 0-1 [facility] Bilirubin [Mass/Vol] 0.90 mg/dL 0.20-1.00 [facility] Comment on above: For patients on eltr ombopag therapy, use of Dimension [place] TBIL is not recommended. Chloride [Moles/Vol] 104 mmol/L 98-107 [facility] Eosinophils/100 WBC (Bld) 3.3 % 0-5 [facility] Glucose [Mass/Vol] 314 mg/dL 74-106 [facility] Comment on above: Glucose result great er than or equal to 200 mg/dLsuggests DIABETES MELLITUS per A.D.A. criteria. Neutrophils (Bld) [#/Vol] 3.5 10*3/uL 2.0-7.7 [facility] Neutrophils/100 WBC (Bld) 64.8 % 47-70 [facility] Potassium [Moles/Vol] 5.1 mmol/L 3.5-5.1 [facility] Comment on above: Slight Hemolysis, Re sult may be falsely increased. Protein [Mass/Vol] 8.2 g/dL 6.4-8.2 [facility] Sodium [Moles/Vol] 135 mmol/L 136-145 [facility] WBC (Bld) [#/Vol] 5.4 10*3/uL 4.4-11.0 [facility] Blood erythrocytes count (nu mber/volume)Ordered By: Shayna Malhotra on 07-13-2022 RBC (Bld) [#/Vol] 4.51 10*6/uL 4.2-5.4 [facility] Blood hemoglobin measurement (mass/volume)Ordered By: hSayna Malhotra on 07-13-2022 Hemoglobin (Bld) [Mass/Vol] 12.8 g/dL 12.0-15.0 [facility] Blood lymphocytes/100 leukoc ytesOrdered By: Shayna Malhotra on 07-13-2022 Lymphocytes/100 WBC (Bld) 21.9 % 19-41 [facility] Blood monocytes/100 leukocyt esOrdered By: Shayna Malhotra on 07-13-2022 Monocytes/100 WBC (Bld) 9.1 % 0-10 [facility] Blood platelet mean volumeOr dered By: Shayna Malhotra on 07-13-2022 Platelet mean volume (Bld) [Entitic vol] 11.2 fL 6.2-12.0 [facility] Determination of erythrocyte mean corpuscular volume (MCV)Ordered By: Shayna Malhotra on 07-13-2022 MCV (RBC) [Entitic vol] 87.1 fL 81-99 [facility] Hematocrit Auto (Bld) [Volum e fraction]Ordered By: Shayna Malhotra on 07-13-2022 Hematocrit (Bld) [Volume fraction] 39.3 % 37-47 [facility] - Chemistry and C hemistry - challengeOrdered By: Shayna Malhotra on 07-13-2022 ALP [Catalytic activity/Vol] 159 U/L 45-117 [facility] ALT [Catalytic activity/Vol] 35 U/L 13-56 [facility] CO2 [Moles/Vol] 23.0 mmol/L 21.0-32.0 [facility] Globulin (S) [Mass/Vol] 4.9 g/dL 2.2-4.2 [facility] Urea nitrogen/Creatinine [Mass ratio] 16.6 mg/mg 10-20 [facility] - Hematology and Cell countsOrdered By: Shayna Malhotra on 07-13-2022 Erythrocyte distribution width (RBC) [Entitic vol] 49.6 fL 35.1-43.9 [facility] Erythrocyte distribution width (RBC) [Ratio] 15.7 % 11.6-14.6 [facility] Immature granulocytes/100 WBC (Bld) 0.200 % 0.0-0.9 [facility] Comment on above: IG% - Immature Granu locytes (promyelocytes, myelocytes and metamyelocytes) > 1% indicates that a LEFT SHIFT is Present. MCH (RBC) [Entitic mass] 28.4 pg 27.0-32.0 [facility] Nucleated RBC/100 WBC (Bld) [Ratio] 0 % 0-5 [facility] MCHC Auto (RBC) [Mass/Vol]Or dered By: Shayna Malhotra on 07-13-2022 MCHC (RBC) [Mass/Vol] 32.6 g/dL 32-36 [facility] No Panel InformationOrdered By: Shayna Malhotra on 07-13-2022 Estimated GFR (MDRD) Amer 74 mL/min >60 [facility] Comment on above: GFR Calc Estimated GFR (MDRD) Non-Af Amer 61 mL/min >60 [facility] Comment on above: Non- GFR Calc Vitamin D 25-Hydroxy 47.5 ng/mL [facility] Comment on above: Vitamin D 25(OH) Sta tus Range Deficiency <20 ng/mL (50nmol/L) Insufficiency 20 - 30 ng/mL (50 - 75 nmol/L) Sufficiency 30 - 100 ng/mL (75 - 250 nmol/L) Toxicity >100 ng/mL (>250 nmol/L) Platelets bldOrdered By: Evi Malhotra on 07-13-2022 Platelets (Bld) [#/Vol] 132 10*3/uL 150-450 [facility] Serum or plasma albumin kim urement (mass/volume)Ordered By: Shayna Malhotra on 07-13-2022 Albumin [Mass/Vol] 3.3 g/dL 3.2-5.0 [facility] Serum or plasma albumin/glob ulin mass ratioOrdered By: Shayna Malhotra on 07-13-2022 Albumin/Globulin [Mass ratio] 0.7 {ratio} 0.9-2.4 [facility] Serum or plasma calcium kim urement (mass/volume)Ordered By: Shayna Malhotra on 07-13-2022 Calcium [Mass/Vol] 9.6 mg/dL 8.5-10.1 [facility] Serum or plasma creatinine m easurement (mass/volume)Ordered By: Shayna Malhotra on 07-13-2022 Creatinine [Mass/Vol] 0.97 mg/dL 0.55-1.02 [facility] Comment on above: The validity of the calculated GFR & GFRAA in patients over 70 years has not been determined. Clinical correlation is essential. Serum or plasma urea nitroge n measurement (mass/volume)Ordered By: Shayna Malhotra on 07-13-2022 Urea nitrogen [Mass/Vol] 16 mg/dL 7-18 [facility] Thin prep Papanicolaou smear with manual screeningOrdered By: Shayna Malhotra on 07-13-2022 Thin prep Papanicolaou smear with manual screening 48 U/L 15-37 [facility] Comment on above: Slight Hemolysis, Re sult may be falsely increased. Thin prep Papanicolaou smear with manual screening 8 5-15 [facility] Absolute lymphocyte countOrd ered By: [facility] on 06-08-2022 Lymphocytes Auto (Unsp spec) [#/Vol] 1.23 10*3/uL 0.83-4.51 [facility] Basophil percentageOrdered B y: [facility] on 06-08-2022 Basophils/100 WBC (Bld) 0.6 % 0-1 [facility] Bilirubin [Mass/Vol] 0.50 mg/dL 0.20-1.00 [facility] Comment on above: For patients on eltr ombopag therapy, use of Dimension [place] TBIL is not recommended. Chloride [Moles/Vol] 103 mmol/L 98-107 [facility] Cholesterol [Mass/Vol] 116 mg/dL <200 [facility] Comment on above: <200 mg/dL Desirable 200-240 mg/dL Borderline >240 mg/dL High Risk Eosinophils/100 WBC (Bld) 3.3 % 0-5 [facility] Glucose [Mass/Vol] 266 mg/dL 74-106 [facility] Comment on above: Glucose result great er than or equal to 200 mg/dLsuggests DIABETES MELLITUS per A.D.A. criteria. Neutrophils (Bld) [#/Vol] 2.9 10*3/uL 2.0-7.7 [facility] Neutrophils/100 WBC (Bld) 61.4 % 47-70 [facility] Potassium [Moles/Vol] 4.3 mmol/L 3.5-5.1 [facility] Protein [Mass/Vol] 7.6 g/dL 6.4-8.2 [facility] Sodium [Moles/Vol] 134 mmol/L 136-145 [facility] Triglyceride [Mass/Vol] 86 mg/dL <199 [facility] Comment on above: The drugs N-Acetylcy steine and Metamizole may falsely depress this assay.Serum Triglycerides Reference Interval Normal <150 mg/dL Borderline high 150 - 199 mg/dL High 200 - 499 mg/dL Very High > or = 500 mg/dL WBC (Bld) [#/Vol] 4.8 10*3/uL 4.4-11.0 [facility] Blood erythrocytes count (nu mber/volume)Ordered By: [facility] on 06-08-2022 RBC (Bld) [#/Vol] 4.47 10*6/uL 4.2-5.4 [facility] Blood hemoglobin measurement (mass/volume)Ordered By: [facility] on 06-08-2022 Hemoglobin (Bld) [Mass/Vol] 12.4 g/dL 12.0-15.0 [facility] Blood lymphocytes/100 leukoc ytesOrdered By: [facility] on 06-08-2022 Lymphocytes/100 WBC (Bld) 25.7 % 19-41 [facility] Blood monocytes/100 leukocyt esOrdered By: [facility] on 06-08-2022 Monocytes/100 WBC (Bld) 8.8 % 0-10 [facility] Blood platelet mean volumeOr dered By: [facility] on 06-08-2022 Platelet mean volume (Bld) [Entitic vol] 11.1 fL 6.2-12.0 [facility] Determination of erythrocyte mean corpuscular volume (MCV)Ordered By: [facility] on 06-08-2022 MCV (RBC) [Entitic vol] 88.8 fL 81-99 [facility] Hematocrit Auto (Bld) [Volum e fraction]Ordered By: [facility] on 06-08-2022 Hematocrit (Bld) [Volume fraction] 39.7 % 37-47 [facility] - Chemistry and C hemistry - challengeOrdered By: [facility] on 06-08-2022 ALP [Catalytic activity/Vol] 142 U/L 45-117 [facility] [facility] ALT [Catalytic activity/Vol] 36 U/L 13-56 [facility] CO2 [Moles/Vol] 22.0 mmol/L 21.0-32.0 [facility] Globulin (S) [Mass/Vol] 4.8 g/dL 2.2-4.2 [facility] Urea nitrogen/Creatinine [Mass ratio] 17.1 mg/mg 10-20 [facility] Laboratory - Hematology and Cell countsOrdered By: [facility] on 06-08-2022 Erythrocyte distribution width (RBC) [Entitic vol] 48.8 fL 35.1-43.9 [facility] Erythrocyte distribution width (RBC) [Ratio] 14.9 % 11.6-14.6 [facility] Immature granulocytes/100 WBC (Bld) 0.200 % 0.0-0.9 [facility] Comment on above: IG% - Immature Granu locytes (promyelocytes, myelocytes and metamyelocytes) > 1% indicates that a LEFT SHIFT is Present. MCH (RBC) [Entitic mass] 27.7 pg 27.0-32.0 [facility] Nucleated RBC/100 WBC (Bld) [Ratio] 0 % 0-5 [facility] MCHC Auto (RBC) [Mass/Vol]Or dered By: [facility] on 06-08-2022 MCHC (RBC) [Mass/Vol] 31.2 g/dL 32-36 [facility] No Panel InformationOrdered By: [facility] on 06-08-2022 Estimated GFR (MDRD) Amer 82 mL/min >60 [facility] Comment on above: GFR Calc Estimated GFR (MDRD) Non-Af Amer 68 mL/min >60 [facility] Comment on above: Non- GFR Calc Vitamin D 25-Hydroxy 56.8 ng/mL [facility] Comment on above: Vitamin D 25(OH) Sta tus Range Deficiency <20 ng/mL (50nmol/L) Insufficiency 20 - 30 ng/mL (50 - 75 nmol/L) Sufficiency 30 - 100 ng/mL (75 - 250 nmol/L) Toxicity >100 ng/mL (>250 nmol/L) Platelets bldOrdered By: [facility] on 06-08-[facility] Platelets (Bld) [#/Vol] 145 10*3/uL 150-450 [facility] Serum or plasma albumin kim urement (mass/volume)Ordered By: [facility] on 06-08-2022 Albumin [Mass/Vol] 2.8 g/dL 3.2-5.0 [facility] Serum or plasma albumin/glob ulin mass ratioOrdered By: [facility] on 06-08-2022 Albumin/Globulin [Mass ratio] 0.6 {ratio} 0.9-2.4 [facility] Serum or plasma calcium kim urement (mass/volume)Ordered By: [facility] on 06-08-2022 Calcium [Mass/Vol] 9.0 mg/dL 8.5-10.1 [facility] Serum or plasma cholesterol in HDL measurement (mass/volume)Ordered By: [facility] on 06-08-2022 Cholesterol in HDL [Mass/Vol] 58 mg/dL >40 [facility] Comment on above: The drugs N-Acetylcy steine and Metamizole may falsely depress this assay. Reference Range HDL <40 mg/dL Low HDL Cholesterol HDL >or= 60 mg/dL High HDL Cholesterol Serum or plasma cholesterol in VLDL measurement (mass/volume)Ordered By: [facility] on 06-08-2022 Cholesterol in VLDL [Mass/Vol] 17 mg/dL 5-40 [facility] Serum or plasma creatinine m easurement (mass/volume)Ordered By: [facility] on 06-08-2022 Creatinine [Mass/Vol] 0.88 mg/dL 0.55-1.02 [facility] Comment on above: The validity of the calculated GFR & GFRAA in patients over 70 years has not been determined. Clinical correlation is essential. Serum or plasma low density lipoprotein (LDL) cholesterol measurement (mass/volume)Ordered By: [facility] on 06-08-2022 Cholesterol in LDL [Mass/Vol] 41 mg/dL 0-130 [facility] Serum or plasma urea nitroge n measurement (mass/volume)Ordered By: [facility] on 06-08-2022 Urea nitrogen [Mass/Vol] 15 mg/dL 7-18 [facility] Thin prep Papanicolaou smear with manual screeningOrdered By: [facility] on 06-08-2022 Thin prep Papanicolaou smear with manual screening 39 U/L 15-37 [facility] Thin prep Papanicolaou smear with manual screening 9 5-15 [facility] Whole blood hemoglobin A1c/t otal hemoglobin ratio (mass fraction)Ordered By: [facility] on 06-08-2022 HbA1c (Bld) [Mass fraction] 8.8 % 3.8-5.6 [facility] Comment on above: Normal < 5.7 % Predi abetic 5.7 - 6.4 % Diabetic >or= 6.5 % Please note range changes. Absolute lymphocyte countOrd ered By: Shayna Malhotra on 04-13-2022 Lymphocytes Auto (Unsp spec) [#/Vol] 1.30 10*3/uL 0.83-4.51 [facility] Basophil percentageOrdered B y: Shayna Malhotra on 04-13-2022 Basophils/100 WBC (Bld) 0.2 % 0-1 [facility] Bilirubin [Mass/Vol] 0.40 mg/dL 0.20-1.00 [facility] Comment on above: For patients on eltr ombopag therapy, use of Dimension [place] TBIL is not recommended. Chloride [Moles/Vol] 106 mmol/L 98-107 [facility] Eosinophils/100 WBC (Bld) 3.5 % 0-5 [facility] Glucose [Mass/Vol] 149 mg/dL 74-106 [facility] Comment on above: Fasting Glucose resu lt greater than or equal to 126 mg/dL suggests DIABETES MELLITUS per A.D.A. criteria. Neutrophils (Bld) [#/Vol] 2.5 10*3/uL 2.0-7.7 [facility] Neutrophils/100 WBC (Bld) 54.6 % 47-70 [facility] Potassium [Moles/Vol] 4.5 mmol/L 3.5-5.1 [facility] Protein [Mass/Vol] 7.8 g/dL 6.4-8.2 [facility] Sodium [Moles/Vol] 138 mmol/L 136-145 [facility] WBC (Bld) [#/Vol] 4.6 10*3/uL 4.4-11.0 [facility] Blood erythrocytes count (nu mber/volume)Ordered By: Shayna Malhotra on 04-13-2022 RBC (Bld) [#/Vol] 4.45 10*6/uL 4.2-5.4 [facility] Blood hemoglobin measurement (mass/volume)Ordered By: Shayna Malhotra on 04-13-2022 Hemoglobin (Bld) [Mass/Vol] 12.9 g/dL 12.0-15.0 [facility] Blood lymphocytes/100 leukoc ytesOrdered By: Shayna Malhotra on 04-13-2022 Lymphocytes/100 WBC (Bld) 28.4 % 19-41 [facility] Blood monocytes/100 leukocyt esOrdered By: Shayna Malhotra on 04-13-2022 Monocytes/100 WBC (Bld) 12.9 % 0-10 [facility] Blood platelet mean volumeOr dered By: Shayna Malhotra on 04-13-2022 Platelet mean volume (Bld) [Entitic vol] 11.1 fL 6.2-12.0 [facility] Determination of erythrocyte mean corpuscular volume (MCV)Ordered By: Shayna Malhotra on 04-13-2022 MCV (RBC) [Entitic vol] 90.8 fL 81-99 [facility] Hematocrit Auto (Bld) [Volum e fraction]Ordered By: Shayna Malhotra on 04-13-2022 Hematocrit (Bld) [Volume fraction] 40.4 % 37-47 [facility] Laboratory - Chemistry and C hemistry - challengeOrdered By: Shayna Malhotra on 04-13-2022 ALP [Catalytic activity/Vol] 144 U/L 45-117 [facility] ALT [Catalytic activity/Vol] 32 U/L 13-56 [facility] CO2 [Moles/Vol] 23.0 mmol/L 21.0-32.0 [facility] Globulin (S) [Mass/Vol] 4.8 g/dL 2.2-4.2 [facility] Urea nitrogen/Creatinine [Mass ratio] 15.3 mg/mg 10-20 [facility] - Hematology and Cell countsOrdered By: Shayna Malhotra on 04-13-2022 Erythrocyte distribution width (RBC) [Entitic vol] 47.8 fL 35.1-43.9 [facility] Erythrocyte distribution width (RBC) [Ratio] 14.3 % 11.6-14.6 [facility] Immature granulocytes/100 WBC (Bld) 0.400 % 0.0-0.9 [facility] Comment on above: IG% - Immature Granu locytes (promyelocytes, myelocytes and metamyelocytes) > 1% indicates that a LEFT SHIFT is Present. MCH (RBC) [Entitic mass] 29.0 pg 27.0-32.0 [facility] Nucleated RBC/100 WBC (Bld) [Ratio] 0 % 0-5 [facility] MCHC Auto (RBC) [Mass/Vol]Or dered By: Shayna Malhotra on 04-13-2022 MCHC (RBC) [Mass/Vol] 31.9 g/dL 32-36 [facility] No Panel InformationOrdered By: Shayna Malhotra on 04-13-2022 Estimated GFR (MDRD) Amer 78 mL/min >60 [facility] Comment on above: GFR Calc Estimated GFR (MDRD) Non-Af Amer 65 mL/min >60 [facility] Comment on above: Non- GFR Calc Vitamin D 25-Hydroxy 63.8 ng/mL [facility] Comment on above: Vitamin D 25(OH) Sta tus Range Deficiency <20 ng/mL (50nmol/L) Insufficiency 20 - 30 ng/mL (50 - 75 nmol/L) Sufficiency 30 - 100 ng/mL (75 - 250 nmol/L) Toxicity >100 ng/mL (>250 nmol/L) Platelets bldOrdered By: Evi Malhotra on 04-13-2022 Platelets (Bld) [#/Vol] 157 10*3/uL 150-450 [facility] Serum or plasma albumin kim urement (mass/volume)Ordered By: Shayna Malhotra on 04-13-2022 Albumin [Mass/Vol] 3.0 g/dL 3.2-5.0 [facility] Serum or plasma albumin/glob ulin mass ratioOrdered By: Shayna Malhotra on 04-13-2022 Albumin/Globulin [Mass ratio] 0.6 {ratio} 0.9-2.4 [facility] Serum or plasma calcium kim urement (mass/volume)Ordered By: Shayna Malhotra on 04-13-2022 Calcium [Mass/Vol] 9.0 mg/dL 8.5-10.1 [facility] Serum or plasma creatinine m easurement (mass/volume)Ordered By: Shayna Malhotra on 04-13-2022 Creatinine [Mass/Vol] 0.92 mg/dL 0.55-1.02 [facility] Comment on above: The validity of the calculated GFR & GFRAA in patients over 70 years has not been determined. Clinical correlation is essential. Serum or plasma urea nitroge n measurement (mass/volume)Ordered By: Shayna Malhotra on 04-13-2022 Urea nitrogen [Mass/Vol] 14 mg/dL 7-18 [facility] Thin prep Papanicolaou smear with manual screeningOrdered By: Shayna Malhotra on 04-13-2022 Thin prep Papanicolaou smear with manual screening 40 U/L 15-37 [facility] Thin prep Papanicolaou smear with manual screening 9 5-15 [facility] Basophil percentageon 2021 Bilirubin [Mass/Vol] 0.80 mg/dL 0.20-1.00 [facility] Work Phone: Comment on above: For patients on eltr ombopag therapy, use of Dimension [place] TBIL is not recommended. Chloride [Moles/Vol] 103 mmol/L 98-107 [facility] Work Phone: Glucose [Mass/Vol] 218 mg/dL 74-106 [facility] Work Phone: Comment on above: Glucose result great er than or equal to 200 mg/dLsuggests DIABETES MELLITUS per A.D.A. criteria. Potassium [Moles/Vol] 4.2 mmol/L 3.5-5.1 [facility] Work Phone: Protein [Mass/Vol] 8.0 g/dL 6.4-8.2 [facility] Work Phone: Sodium [Moles/Vol] 135 mmol/L 136-145 [facility] Work Phone: WBC (Bld) [#/Vol] 8.6 10*3/uL 4.4-11.0 [facility] Work Phone: Blood erythrocytes count (nu mber/volume)on 01-01-2022 RBC (Bld) [#/Vol] 4.72 10*6/uL 4.2-5.4 [facility] Work Phone: Blood hemoglobin measurement (mass/volume)on 01-01-2022 Hemoglobin (Bld) [Mass/Vol] 13.5 g/dL 12.0-15.0 [facility] Work Phone: Blood platelet mean volumeon 01-01-2022 Platelet mean volume (Bld) [Entitic vol] 11.0 fL 6.2-12.0 [facility] Work Phone: Determination of erythrocyte mean corpuscular volume (MCV)on 01-01-2022 MCV (RBC) [Entitic vol] 86.2 fL 81-99 [facility] Work Phone: Hematocrit Auto (Bld) [Volum e fraction]on 01-01-2022 Hematocrit (Bld) [Volume fraction] 40.7 % 37-47 [facility] Work Phone: Laboratory - Chemistry and C hemistry - challengeon 01-01-2022 ALP [Catalytic activity/Vol] 140 U/L 45-117 [facility] Work Phone: ALT [Catalytic activity/Vol] 35 U/L 13-56 [facility] Work Phone: CO2 [Moles/Vol] 23.0 mmol/L 21.0-32.0 [facility] Work Phone: Globulin (S) [Mass/Vol] 4.9 g/dL 2.2-4.2 [facility] Work Phone: Urea nitrogen/Creatinine [Mass ratio] 13.8 mg/mg 10-20 [facility] Work Phone: Laboratory - Hematology and Cell countson 01-01-2022 Erythrocyte distribution width (RBC) [Entitic vol] 55.6 fL 35.1-43.9 [facility] Work Phone: Erythrocyte distribution width (RBC) [Ratio] 17.5 % 11.6-14.6 [facility] Work Phone: MCH (RBC) [Entitic mass] 28.6 pg 27.0-32.0 [facility] Work Phone: MCHC Auto (RBC) [Mass/Vol]on 01-01-2022 MCHC (RBC) [Mass/Vol] 33.2 g/dL 32-36 [facility] Work Phone: No Panel Informationon 01-01 Estimated GFR (MDRD) Amer 64 mL/min >60 [facility] Work Phone: Comment on above: GFR Calc Estimated GFR (MDRD) Non-Af Amer 53 mL/min >60 [facility] Work Phone: Comment on above: Non- GFR Calc Platelets bldon 01-01-2022 Platelets (Bld) [#/Vol] 141 10*3/uL 150-450 [facility] Work Phone: Serum or plasma albumin kim urement (mass/volume)on 01-01-2022 Albumin [Mass/Vol] 3.1 g/dL 3.2-5.0 [facility] Work Phone: Serum or plasma albumin/glob ulin mass ratioon 01-01-2022 Albumin/Globulin [Mass ratio] 0.6 {ratio} 0.9-2.4 [facility] Work Phone: Serum or plasma calcium kim urement (mass/volume)on 01-01-2022 Calcium [Mass/Vol] 9.3 mg/dL 8.5-10.1 [facility] Work Phone: Serum or plasma creatinine m easurement (mass/volume)on 01-01-2022 Creatinine [Mass/Vol] 1.09 mg/dL 0.55-1.02 [facility] Work Phone: Comment on above: The validity of the calculated GFR & GFRAA in patients over 70 years has not been determined. Clinical correlation is essential. Serum or plasma urea nitroge n measurement (mass/volume)on 01-01-2022 Urea nitrogen [Mass/Vol] 15 mg/dL 7-18 [facility] Work Phone: Thin prep Papanicolaou smear with manual screeningon 01-01-2022 Thin prep Papanicolaou smear with manual screening 36 U/L 15-37 [facility] Work Phone: Thin prep Papanicolaou smear with manual screening 9 5-15 [facility] Work Phone: Whole blood hemoglobin A1c/t otal hemoglobin ratio (mass fraction)on 01-01-2022 HbA1c (Bld) [Mass fraction] 8.7 % 3.8-5.6 [facility] Work Phone: Comment on above: Normal < 5.7 % Predi abetic 5.7 - 6.4 % Diabetic >or= 6.5 % Please note range changes. Basophil percentageon 2021 Bilirubin [Mass/Vol] 0.40 mg/dL 0.20-1.00 [facility] Work Phone: Comment on above: For patients on eltr ombopag therapy, use of Dimension [place] TBIL is not recommended. Chloride [Moles/Vol] 103 mmol/L 98-107 [facility] Work Phone: Glucose [Mass/Vol] 216 mg/dL 74-106 [facility] Work Phone: Comment on above: Glucose result great er than or equal to 200 mg/dLsuggests DIABETES MELLITUS per A.D.A. criteria. Potassium [Moles/Vol] 4.4 mmol/L 3.5-5.1 [facility] Work Phone: Protein [Mass/Vol] 6.5 g/dL 6.4-8.2 [facility] Work Phone: Sodium [Moles/Vol] 136 mmol/L 136-145 [facility] Work Phone: WBC (Bld) [#/Vol] 6.2 10*3/uL 4.4-11.0 [facility] Work Phone: Blood erythrocytes count (nu mber/volume)on 12-01-2021 RBC (Bld) [#/Vol] 4.09 10*6/uL 4.2-5.4 [facility] Work Phone: Blood hemoglobin measurement (mass/volume)on 12-01-2021 Hemoglobin (Bld) [Mass/Vol] 11.3 g/dL 12.0-15.0 [facility] Work Phone: Blood platelet mean volumeon 12-01-2021 Platelet mean volume (Bld) [Entitic vol] 10.8 fL 6.2-12.0 [facility] Work Phone: Determination of erythrocyte mean corpuscular volume (MCV)on 12-01-2021 MCV (RBC) [Entitic vol] 85.8 fL 81-99 [facility] Work Phone: Comment on above: Delta: 79.2 on 11/27 Hematocrit Auto (Bld) [Volum e fraction]on 12-01-2021 Hematocrit (Bld) [Volume fraction] 35.1 % 37-47 [facility] Work Phone: Laboratory - Chemistry and C hemistry - challengeon 12-01-2021 ALP [Catalytic activity/Vol] 130 U/L 45-117 [facility] Work Phone: ALT [Catalytic activity/Vol] 48 U/L 13-56 [facility] Work Phone: CK [Catalytic activity/Vol] 27 U/L 26-192 [facility] Work Phone: CO2 [Moles/Vol] 27.0 mmol/L 21.0-32.0 [facility] Work Phone: Globulin (S) [Mass/Vol] 4.2 g/dL 2.2-4.2 [facility] Work Phone: Urea nitrogen/Creatinine [Mass ratio] 31.2 mg/mg 10-20 [facility] Work Phone: Laboratory - Hematology and Cell countson 12-01-2021 Erythrocyte distribution width (RBC) [Entitic vol] 48.3 fL 35.1-43.9 [facility] Work Phone: Erythrocyte distribution width (RBC) [Ratio] 15.4 % 11.6-14.6 [facility] Work Phone: MCH (RBC) [Entitic mass] 27.6 pg 27.0-32.0 [facility] Work Phone: MCHC Auto (RBC) [Mass/Vol]on 12-01-2021 MCHC (RBC) [Mass/Vol] 32.2 g/dL 32-36 [facility] Work Phone: Comment on above: Delta: 34.7 on 11/27 No Panel Informationon 12-01 Estimated GFR (MDRD) Amer 91 mL/min >60 [facility] Work Phone: Comment on above: GFR Calc Estimated GFR (MDRD) Non-Af Amer 76 mL/min >60 [facility] Work Phone: Comment on above: Non- GFR Calc Platelets bldon 12-01-2021 Platelets (Bld) [#/Vol] 231 10*3/uL 150-450 [facility] Work Phone: Serum or plasma albumin kim urement (mass/volume)on 12-01-2021 Albumin [Mass/Vol] 2.3 g/dL 3.2-5.0 [facility] Work Phone: Serum or plasma albumin/glob ulin mass ratioon 12-01-2021 Albumin/Globulin [Mass ratio] 0.5 {ratio} 0.9-2.4 [facility] Work Phone: Serum or plasma calcium kim urement (mass/volume)on 12-01-2021 Calcium [Mass/Vol] 8.8 mg/dL 8.5-10.1 [facility] Work Phone: Serum or plasma creatinine m easurement (mass/volume)on 12-01-2021 Creatinine [Mass/Vol] 0.80 mg/dL 0.55-1.02 [facility] Work Phone: Comment on above: The validity of the calculated GFR & GFRAA in patients over 70 years has not been determined. Clinical correlation is essential. Serum or plasma urea nitroge n measurement (mass/volume)on 12-01-2021 Urea nitrogen [Mass/Vol] 25 mg/dL 7-18 [facility] Work Phone: Thin prep Papanicolaou smear with manual screeningon 12-01-2021 Thin prep Papanicolaou smear with manual screening 69 U/L 15-37 [facility] Work Phone: Thin prep Papanicolaou smear with manual screening 6 5-15 [facility] Work Phone: Whole blood hemoglobin A1c/t otal hemoglobin ratio (mass fraction)on 12-01-2021 HbA1c (Bld) [Mass fraction] 10.6 % 3.8-5.6 [facility] Work Phone: Comment on above: Normal < 5.7 % Predi abetic 5.7 - 6.4 % Diabetic >or= 6.5 % Please note range changes. Basophil percentageon 2021 Bilirubin [Mass/Vol] 0.40 mg/dL 0.20-1.00 [facility] Work Phone: Comment on above: For patients on eltr ombopag therapy, use of Dimension [place] TBIL is not recommended. Chloride [Moles/Vol] 102 mmol/L 98-107 [facility] Work Phone: Glucose [Mass/Vol] 256 mg/dL 74-106 [facility] Work Phone: Comment on above: Glucose result great er than or equal to 200 mg/dLsuggests DIABETES MELLITUS per A.D.A. criteria. Potassium [Moles/Vol] 4.4 mmol/L 3.5-5.1 [facility] Work Phone: Protein [Mass/Vol] 7.0 g/dL 6.4-8.2 [facility] Work Phone: Sodium [Moles/Vol] 133 mmol/L 136-145 [facility] Work Phone: WBC (Bld) [#/Vol] 5.6 10*3/uL 4.4-11.0 [facility] Work Phone: Blood erythrocytes count (nu mber/volume)on 11-27-2021 RBC (Bld) [#/Vol] 4.47 10*6/uL 4.2-5.4 [facility] Work Phone: Blood hemoglobin measurement (mass/volume)on 11-27-2021 Hemoglobin (Bld) [Mass/Vol] 12.3 g/dL 12.0-15.0 [facility] Work Phone: Blood platelet mean volumeon 11-27-2021 Platelet mean volume (Bld) [Entitic vol] 11.9 fL 6.2-12.0 [facility] Work Phone: Determination of erythrocyte mean corpuscular volume (MCV)on 11-27-2021 MCV (RBC) [Entitic vol] 79.2 fL 81-99 [facility] Work Phone: Comment on above: Delta: 83.4 on 11/2434 Hematocrit Auto (Bld) [Volum e fraction]on 11-27-2021 Hematocrit (Bld) [Volume fraction] 35.4 % 37-47 [facility] Work Phone: Laboratory - Chemistry and C hemistry - challengeon 11-27-2021 ALP [Catalytic activity/Vol] 127 U/L 45-117 [facility] Work Phone: ALT [Catalytic activity/Vol] 28 U/L 13-56 [facility] Work Phone: CO2 [Moles/Vol] 25.0 mmol/L 21.0-32.0 [facility] Work Phone: Globulin (S) [Mass/Vol] 4.6 g/dL 2.2-4.2 [facility] Work Phone: Urea nitrogen/Creatinine [Mass ratio] 15.9 mg/mg 10-20 [facility] Work Phone: Laboratory - Hematology and Cell countson 11-27-2021 Erythrocyte distribution width (RBC) [Entitic vol] 41.4 fL 35.1-43.9 [facility] Work Phone: Erythrocyte distribution width (RBC) [Ratio] 14.5 % 11.6-14.6 [facility] Work Phone: MCH (RBC) [Entitic mass] 27.5 pg 27.0-32.0 [facility] Work Phone: MCHC Auto (RBC) [Mass/Vol]on 11-27-2021 MCHC (RBC) [Mass/Vol] 34.7 g/dL 32-36 [facility] Work Phone: No Panel Informationon 11-27 Estimated GFR (MDRD) Amer 108 mL/min >60 [facility] Work Phone: Comment on above: GFR Calc Estimated GFR (MDRD) Non-Af Amer 89 mL/min >60 [facility] Work Phone: Comment on above: Non- GFR Calc Platelets bldon 11-27-2021 Platelets (Bld) [#/Vol] 154 10*3/uL 150-450 [facility] Work Phone: Serum or plasma albumin kim urement (mass/volume)on 11-27-2021 Albumin [Mass/Vol] 2.4 g/dL 3.2-5.0 [facility] Work Phone: Serum or plasma albumin/glob ulin mass ratioon 11-27-2021 Albumin/Globulin [Mass ratio] 0.5 {ratio} 0.9-2.4 [facility] Work Phone: Serum or plasma calcium kim urement (mass/volume)on 11-27-2021 Calcium [Mass/Vol] 8.9 mg/dL 8.5-10.1 [facility] Work Phone: Serum or plasma creatinine m easurement (mass/volume)on 11-27-2021 Creatinine [Mass/Vol] 0.69 mg/dL 0.55-1.02 [facility] Work Phone: Comment on above: The validity of the calculated GFR & GFRAA in patients over 70 years has not been determined. Clinical correlation is essential. Serum or plasma urea nitroge n measurement (mass/volume)on 11-27-2021 Urea nitrogen [Mass/Vol] 11 mg/dL 7-18 [facility] Work Phone: Thin prep Papanicolaou smear with manual screeningon 11-27-2021 Thin prep Papanicolaou smear with manual screening 31 U/L 15-37 [facility] Work Phone: Thin prep Papanicolaou smear with manual screening 6 5-15 [facility] Work Phone: Absolute lymphocyte counton 11-24-2021 Lymphocytes Auto (Unsp spec) [#/Vol] 1.01 10*3/uL 0.83-4.51 [facility] Work Phone: Basophil percentageon 2021 Basophil percentage 3.5 mg/dL 2.5-4.9 [facility] Work Phone: Basophils/100 WBC (Bld) 0.4 % 0-1 [facility] Work Phone: Bilirubin [Mass/Vol] 0.40 mg/dL 0.20-1.00 [facility] Work Phone: Comment on above: For patients on eltr ombopag therapy, use of Dimension [place] TBIL is not recommended. Chloride [Moles/Vol] 105 mmol/L 98-107 [facility] Work Phone: Eosinophils/100 WBC (Bld) 2.3 % 0-5 [facility] Work Phone: Glucose [Mass/Vol] 321 mg/dL 74-106 [facility] Work Phone: Comment on above: Glucose result great er than or equal to 200 mg/dLsuggests DIABETES MELLITUS per A.D.A. criteria. Neutrophils (Bld) [#/Vol] 3.8 10*3/uL 2.0-7.7 [facility] Work Phone: Neutrophils/100 WBC (Bld) 66.8 % 47-70 [facility] Work Phone: Potassium [Moles/Vol] 4.2 mmol/L 3.5-5.1 [facility] Work Phone: Protein [Mass/Vol] 6.6 g/dL 6.4-8.2 [facility] Work Phone: Sodium [Moles/Vol] 133 mmol/L 136-145 [facility] Work Phone: WBC (Bld) [#/Vol] 5.6 10*3/uL 4.4-11.0 [facility] Work Phone: Blood erythrocytes count (nu mber/volume)on 11-24-2021 RBC (Bld) [#/Vol] 3.91 10*6/uL 4.2-5.4 [facility] Work Phone: Blood hemoglobin measurement (mass/volume)on 11-24-2021 Hemoglobin (Bld) [Mass/Vol] 11.0 g/dL 12.0-15.0 [facility] Work Phone: Blood lymphocytes/100 leukoc yteson 11-24-2021 Lymphocytes/100 WBC (Bld) 17.9 % 19-41 [facility] Work Phone: Blood monocytes/100 leukocyt eson 11-24-2021 Monocytes/100 WBC (Bld) 12.1 % 0-10 [facility] Work Phone: Blood platelet mean volumeon 11-24-2021 Platelet mean volume (Bld) [Entitic vol] 11.4 fL 6.2-12.0 [facility] Work Phone: Determination of erythrocyte mean corpuscular volume (MCV)on 11-24-2021 MCV (RBC) [Entitic vol] 83.4 fL 81-99 [facility] Work Phone: Glucose Glucometer (BldC) [M ass/Vol]on 11-24-2021 Glucose [Mass/Vol] 307 mg/dL 74-106 [facility] Work Phone: Comment on above: MANAGEMENT OF PATIEN T CARE PER NURSING PROTOCOL Glucose [Mass/Vol] 339 mg/dL 74-106 [facility] Work Phone: Comment on above: MANAGEMENT OF PATIEN T CARE PER NURSING PROTOCOL Hematocrit Auto (Bld) [Volum e fraction]on 11-24-2021 Hematocrit (Bld) [Volume fraction] 32.6 % 37-47 [facility] Work Phone: Laboratory - Chemistry and C hemistry - challengeon 11-24-2021 ALP [Catalytic activity/Vol] 116 U/L 45-117 [facility] Work Phone: ALT [Catalytic activity/Vol] 33 U/L 13-56 [facility] Work Phone: CK [Catalytic activity/Vol] 500 U/L 26-192 [facility] Work Phone: CO2 [Moles/Vol] 22.0 mmol/L 21.0-32.0 [facility] Work Phone: Globulin (S) [Mass/Vol] 4.4 g/dL 2.2-4.2 [facility] Work Phone: Magnesium [Mass/Vol] 2.3 mg/dL 1.6-2.6 [facility] Work Phone: Urea nitrogen/Creatinine [Mass ratio] 24.3 mg/mg 10-20 [facility] Work Phone: Laboratory - Hematology and Cell countson 11-24-2021 Erythrocyte distribution width (RBC) [Entitic vol] 45.1 fL 35.1-43.9 [facility] Work Phone: Erythrocyte distribution width (RBC) [Ratio] 14.9 % 11.6-14.6 [facility] Work Phone: Immature granulocytes/100 WBC (Bld) 0.500 % 0.0-0.9 [facility] Work Phone: Comment on above: IG% - Immature Granu locytes (promyelocytes, myelocytes and metamyelocytes) > 1% indicates that a LEFT SHIFT is Present. MCH (RBC) [Entitic mass] 28.1 pg 27.0-32.0 [facility] Work Phone: Nucleated RBC/100 WBC (Bld) [Ratio] 0 % 0-5 [facility] Work Phone: MCHC Auto (RBC) [Mass/Vol]on 11-24-2021 MCHC (RBC) [Mass/Vol] 33.7 g/dL 32-36 [facility] Work Phone: No Panel Informationon 11-24 Estimated Creatinine Clearance Calc 51.54 ml/min [facility] Work Phone: Estimated GFR (MDRD) Amer 76 mL/min >60 [facility] Work Phone: Comment on above: GFR Calc Estimated GFR (MDRD) Non-Af Amer 62 mL/min >60 [facility] Work Phone: Comment on above: Non- GFR Calc Platelets bldon 11-24-2021 Platelets (Bld) [#/Vol] 107 10*3/uL 150-450 [facility] Work Phone: Serum or plasma albumin kim urement (mass/volume)on 11-24-2021 Albumin [Mass/Vol] 2.2 g/dL 3.2-5.0 [facility] Work Phone: Serum or plasma albumin/glob ulin mass ratioon 11-24-2021 Albumin/Globulin [Mass ratio] 0.5 {ratio} 0.9-2.4 [facility] Work Phone: Serum or plasma calcium kim urement (mass/volume)on 11-24-2021 Calcium [Mass/Vol] 8.5 mg/dL 8.5-10.1 [facility] Work Phone: Serum or plasma creatinine m easurement (mass/volume)on 11-24-2021 Creatinine [Mass/Vol] 0.94 mg/dL 0.55-1.02 [facility] Work Phone: Comment on above: The validity of the calculated GFR & GFRAA in patients over 70 years has not been determined. Clinical correlation is essential. Serum or plasma urea nitroge n measurement (mass/volume)on 11-24-2021 Urea nitrogen [Mass/Vol] 23 mg/dL 7-18 [facility] Work Phone: Thin prep Papanicolaou smear with manual screeningon 11-24-2021 Thin prep Papanicolaou smear with manual screening 49 U/L 15-37 [facility] Work Phone: Thin prep Papanicolaou smear with manual screening 6 5-15 [facility] Work Phone: Absolute lymphocyte counton 11-22-2021 Lymphocytes Auto (Unsp spec) [#/Vol] 0.27 10*3/uL 0.83-4.51 [facility] Work Phone: Basophil percentageon 2021 Lactate [Moles/Vol] 2.7 mmol/L 0.4-2.0 [facility] Work Phone: Comment on above: Critical Result(s) C alled at: 19:01:05 11/22/2021 by: Sintia Hernandez to Pamela Ely Results read back by same. Basophil percentage >100 SEEN /hpf 0-5 [facility] Work Phone: Lactate [Moles/Vol] 4.1 mmol/L 0.4-2.0 [facility] Work Phone: Comment on above: Critical Result(s) C alled at: 14:35:39 11/22/2021 by: Derik Florez. To Julia Cordova RN (ER). Results read back by same. Basophils/100 WBC (Bld) 0.3 % 0-1 [facility] Work Phone: Bilirubin [Mass/Vol] 1.00 mg/dL 0.20-1.00 [facility] Work Phone: Comment on above: For patients on eltr ombopag therapy, use of Dimension [place] TBIL is not recommended. Chloride [Moles/Vol] 97 mmol/L 98-107 [facility] Work Phone: Eosinophils/100 WBC (Bld) 0.0 % 0-5 [facility] Work Phone: Glucose [Mass/Vol] 358 mg/dL 74-106 [facility] Work Phone: Comment on above: Glucose result great er than or equal to 200 mg/dLsuggests DIABETES MELLITUS per A.D.A. criteria. Neutrophils (Bld) [#/Vol] 2.6 10*3/uL 2.0-7.7 [facility] Work Phone: Neutrophils/100 WBC (Bld) 89.3 % 47-70 [facility] Work Phone: Potassium [Moles/Vol] 4.9 mmol/L 3.5-5.1 [facility] Work Phone: Comment on above: Moderate Hemolysis, Result may be falsely increased. Protein [Mass/Vol] 7.8 g/dL 6.4-8.2 [facility] Work Phone: Sodium [Moles/Vol] 130 mmol/L 136-145 [facility] Work Phone: WBC (Bld) [#/Vol] 2.9 10*3/uL 4.4-11.0 [facility] Work Phone: Bilirubin Test strip Ql (U)o n 11-22-2021 Bilirubin Ql (U) Negative Negative [facility] Work Phone: Blood erythrocytes count (nu mber/volume)on 11-22-2021 RBC (Bld) [#/Vol] 4.66 10*6/uL 4.2-5.4 [facility] Work Phone: Blood hemoglobin measurement (mass/volume)on 11-22-2021 Hemoglobin (Bld) [Mass/Vol] 12.9 g/dL 12.0-15.0 [facility] Work Phone: Blood lymphocytes/100 leukoc yteson 11-22-2021 Lymphocytes/100 WBC (Bld) 9.4 % 19-41 [facility] Work Phone: Blood manual differential co mment interpretation (narrative result)on 11-22-2021 Manual differential comment Neftali (Bld) [Interp] SCANNED [facility] Work Phone: Comment on above: FEW BANDS NOTED Blood monocytes/100 leukocyt eson 11-22-2021 Monocytes/100 WBC (Bld) 0.7 % 0-10 [facility] Work Phone: Blood platelet mean volumeon 11-22-2021 Platelet mean volume (Bld) [Entitic vol] 11.0 fL 6.2-12.0 [facility] Work Phone: Determination of erythrocyte mean corpuscular volume (MCV)on 11-22-2021 MCV (RBC) [Entitic vol] 83.7 fL 81-99 [facility] Work Phone: Hematocrit Auto (Bld) [Volum e fraction]on 11-22-2021 Hematocrit (Bld) [Volume fraction] 39.0 % 37-47 [facility] Work Phone: INR in Blood by Coagulation assayon 11-22-2021 INR Coag (Bld) [Relative time] 1.6 {INR} [facility] Work Phone: Ketones Test strip Ql (U)on 11-22-2021 Ketones Ql (U) 15 mg/dl Negative [facility] Work Phone: Laboratory - Chemistry and C hemistry - challengeon 11-22-2021 ALP [Catalytic activity/Vol] 170 U/L 45-117 [facility] Work Phone: ALT [Catalytic activity/Vol] 33 U/L 13-56 [facility] Work Phone: CO2 [Moles/Vol] 22.0 mmol/L 21.0-32.0 [facility] Work Phone: Globulin (S) [Mass/Vol] 5.0 g/dL 2.2-4.2 [facility] Work Phone: Urea nitrogen/Creatinine [Mass ratio] 19.1 mg/mg 10-20 [facility] Work Phone: Laboratory - Coagulationon 0 11-22-2021 aPTT Coag (Bld) [Time] 33.5 s 24.1-36.2 [facility] Work Phone: PT Coag (PPP) [Time] 18.6 s 11.7-14.9 [facility] Work Phone: Laboratory - Hematology and Cell countson 11-22-2021 Erythrocyte distribution width (RBC) [Entitic vol] 44.4 fL 35.1-43.9 [facility] Work Phone: Erythrocyte distribution width (RBC) [Ratio] 14.6 % 11.6-14.6 [facility] Work Phone: Immature granulocytes/100 WBC (Bld) 0.300 % 0.0-0.9 [facility] Work Phone: Comment on above: IG% - Immature Granu locytes (promyelocytes, myelocytes and metamyelocytes) > 1% indicates that a LEFT SHIFT is Present. MCH (RBC) [Entitic mass] 27.7 pg 27.0-32.0 [facility] Work Phone: Nucleated RBC/100 WBC (Bld) [Ratio] 0 % 0-5 [facility] Work Phone: Laboratory - Microbiology an d Antimicrobial susceptibilityon 11-22-2021 SARS-CoV-2 (COVID-19) RNA SALLY+probe Ql (Unsp spec) Not detected Not Detect [facility] Work Phone: Comment on above: Normal [...] 11-22-2021 MCHC (RBC) [Mass/Vol] 33.1 g/dL 32-36 [facility] Work Phone: Mucus LM Ql (Urine sed)on Mucus Ql (Urine sed) 0 SEEN /hpf [facility] Work Phone: Nitrite Test strip Ql (U)on 11-22-2021 Nitrite Ql (U) Negative Negative [facility] Work Phone: No Panel Informationon 11-22 Troponin I High Sensitivity 217 pg/mL 3.0-54.0 [facility] Work Phone: Comment on above: Critical Result(s) C alled at: 20:27:57 11/22/2021 by: Sintia Hernandez to Anthony Butcher. Results read back by same. Please Note: New Test Units and Gender Specific Reference Ranges. For more information see Policy Stat Procedure [place] High Sensitivity Troponin (TNIH) and attachments. Troponin I High Sensitivity 274 pg/mL 3.0-54.0 [facility] Work Phone: Comment on above: Critical Result(s) C alled at: 17:12:08 11/22/2021 by: Sintia Hernandez by Lila Cordova. Results read back by same. Please Note: New Test Units and Gender Specific Reference Ranges. For more information see Policy Stat Procedure [place] High Sensitivity Troponin (TNIH) and attachments. Estimated Creatinine Clearance Calc 34.36 ml/min [facility] Work Phone: Estimated GFR (MDRD) Amer 48 mL/min >60 [facility] Work Phone: Comment on above: GFR Calc Estimated GFR (MDRD) Non-Af Amer 39 mL/min >60 [facility] Work Phone: Comment on above: Non- GFR Calc Platelets bldon 11-22-2021 Platelets (Bld) [#/Vol] 121 10*3/uL 150-450 [facility] Work Phone: Protein Test strip Ql (U)on 11-22-2021 Protein Ql (U) 100 mg/dl Negative [facility] Work Phone: Review by pathologiston 11-04 Pathologist review Neftali (Unsp spec) [Interp] May foll [facility] Work Phone: Pathologist review Neftali (Unsp spec) [Interp] Reviewed [facility] Work Phone: Comment on above: Previous reported re sult: Analisa jacobson Edited by: RGORUBENS on 11/23/21:3864LeukopeniaMild Thrombocytopenia.Clinical correlation necessary.Cedric Cardoza M.D. 11/23/21 AMENDED REPORT 11/23/21 0542 PATH REV previously reported as: Analisa jacobson Serum or plasma albumin kim urement (mass/volume)on 11-22-2021 Albumin [Mass/Vol] 2.8 g/dL 3.2-5.0 [facility] Work Phone: Serum or plasma albumin/glob ulin mass ratioon 11-22-2021 Albumin/Globulin [Mass ratio] 0.6 {ratio} 0.9-2.4 [facility] Work Phone: Serum or plasma calcium kim urement (mass/volume)on 11-22-2021 Calcium [Mass/Vol] 8.9 mg/dL 8.5-10.1 [facility] Work Phone: Serum or plasma creatinine m easurement (mass/volume)on 11-22-2021 Creatinine [Mass/Vol] 1.41 mg/dL 0.55-1.02 [facility] Work Phone: Comment on above: The validity of the calculated GFR & GFRAA in patients over 70 years has not been determined. Clinical correlation is essential. Serum or plasma urea nitroge n measurement (mass/volume)on 11-22-2021 Urea nitrogen [Mass/Vol] 27 mg/dL 7-18 [facility] Work Phone: Squamous epithelial cells de tection in urine sediment by light microscopyon 11-22-2021 Epithelial cells.squamous LM Ql (Urine sed) 0 SEEN /hpf 5-10 [facility] Work Phone: Thin prep Papanicolaou smear with manual screeningon 11-22-2021 Thin prep Papanicolaou smear with manual screening 65 U/L 15-37 [facility] Work Phone: Comment on above: Moderate Hemolysis, Result may be falsely increased. Thin prep Papanicolaou smear with manual screening 11 5-15 [facility] Work Phone: Urine blood detectionon 11-04 RBC Ql (U) 250 /ul Negative [facility] Work Phone: RBC Ql (U) 0 SEEN /hpf 0-5 [facility] Work Phone: Urine clarityon 11-22-2021 Clarity (U) Cloudy Clear [facility] Work Phone: Urine color determinationon 11-22-2021 Color (U) Yellow Yellow [facility] Work Phone: Urine glucose detectionon Glucose Ql (U) 250 mg/dl Normal [facility] Work Phone: Urine leukocyte esterase det ection by dipstickon 11-22-2021 Leukocyte esterase Test strip Ql (U) 500 /ul Negative [facility] Work Phone: Urine pHon 11-22-2021 pH (U) 6.0 [pH] 5.0 - 8.0 [facility] Work Phone: Urine sediment bacteria coun t by microscopy (number/high power field)on 11-22-2021 Bacteria LM.HPF (Urine sed) [#/Area] 3 /[HPF] None Seen [facility] Work Phone: Urine specific gravity measu rementon 11-22-2021 Specific gravity (U) [Rel density] 1.020 1.002-1.03 0 [facility] Work Phone: Urobilinogen Auto test strip Ql (U)on 11-22-2021 Urobilinogen Ql (U) Normal mg/dl Normal [facility] Work Phone: Whole blood hemoglobin A1c/t otal hemoglobin ratio (mass fraction)on 11-22-2021 HbA1c (Bld) [Mass fraction] 10.2 % 3.8-5.6 [facility] Work Phone: Comment on above: Normal < 5.7 % Predi abetic 5.7 - 6.4 % Diabetic >or= 6.5 % Please note range changes. Whole blood hemoglobin A1c/t otal hemoglobin ratio (mass fraction)on 10-27-2021 HbA1c (Bld) [Mass fraction] 8.3 % 3.8-5.6 [facility] Work Phone: Comment on above: Normal < 5.7 % Predi abetic 5.7 - 6.4 % Diabetic >or= 6.5 % Please note range changes. Absolute lymphocyte counton 10-13-2021 Lymphocytes Auto (Unsp spec) [#/Vol] 1.22 10*3/uL 0.83-4.51 [facility] Work Phone: Basophil percentageon 2021 Basophils/100 WBC (Bld) 0.3 % 0-1 [facility] Work Phone: Bilirubin [Mass/Vol] 0.50 mg/dL 0.20-1.00 [facility] Work Phone: Comment on above: For patients on eltr ombopag therapy, use of Dimension [place] TBIL is not recommended. Chloride [Moles/Vol] 102 mmol/L 98-107 [facility] Work Phone: Eosinophils/100 WBC (Bld) 1.7 % 0-5 [facility] Work Phone: Glucose [Mass/Vol] 259 mg/dL 74-106 [facility] Work Phone: Comment on above: Glucose result great er than or equal to 200 mg/dLsuggests DIABETES MELLITUS per A.D.A. criteria. Neutrophils (Bld) [#/Vol] 5.1 10*3/uL 2.0-7.7 [facility] Work Phone: Neutrophils/100 WBC (Bld) 70.8 % 47-70 [facility] Work Phone: Potassium [Moles/Vol] 4.4 mmol/L 3.5-5.1 [facility] Work Phone: Protein [Mass/Vol] 7.4 g/dL 6.4-8.2 [facility] Work Phone: Sodium [Moles/Vol] 134 mmol/L 136-145 [facility] Work Phone: WBC (Bld) [#/Vol] 7.1 10*3/uL 4.4-11.0 [facility] Work Phone: Blood erythrocytes count (nu mber/volume)on 10-13-2021 RBC (Bld) [#/Vol] 4.21 10*6/uL 4.2-5.4 [facility] Work Phone: Blood hemoglobin measurement (mass/volume)on 10-13-2021 Hemoglobin (Bld) [Mass/Vol] 12.1 g/dL 12.0-15.0 [facility] Work Phone: Blood lymphocytes/100 leukoc yteson 10-13-2021 Lymphocytes/100 WBC (Bld) 17.1 % 19-41 [facility] Work Phone: Blood monocytes/100 leukocyt eson 10-13-2021 Monocytes/100 WBC (Bld) 9.8 % 0-10 [facility] Work Phone: Blood platelet mean volumeon 10-13-2021 Platelet mean volume (Bld) [Entitic vol] 10.7 fL 6.2-12.0 [facility] Work Phone: Determination of erythrocyte mean corpuscular volume (MCV)on 10-13-2021 MCV (RBC) [Entitic vol] 86.2 fL 81-99 [facility] Work Phone: Hematocrit Auto (Bld) [Volum e fraction]on 10-13-2021 Hematocrit (Bld) [Volume fraction] 36.3 % 37-47 [facility] Work Phone: Laboratory - Chemistry and C hemistry - challengeon 10-13-2021 ALP [Catalytic activity/Vol] 169 U/L 45-117 [facility] Work Phone: ALT [Catalytic activity/Vol] 31 U/L 13-56 [facility] Work Phone: CO2 [Moles/Vol] 25.0 mmol/L 21.0-32.0 [facility] Work Phone: Globulin (S) [Mass/Vol] 4.5 g/dL 2.2-4.2 [facility] Work Phone: Urea nitrogen/Creatinine [Mass ratio] 14.3 mg/mg 10-20 [facility] Work Phone: Laboratory - Hematology and Cell countson 10-13-2021 Erythrocyte distribution width (RBC) [Entitic vol] 45.6 fL 35.1-43.9 [facility] Work Phone: Erythrocyte distribution width (RBC) [Ratio] 14.4 % 11.6-14.6 [facility] Work Phone: Immature granulocytes/100 WBC (Bld) 0.300 % 0.0-0.9 [facility] Work Phone: Comment on above: IG% - Immature Granu locytes (promyelocytes, myelocytes and metamyelocytes) > 1% indicates that a LEFT SHIFT is Present. MCH (RBC) [Entitic mass] 28.7 pg 27.0-32.0 [facility] Work Phone: Nucleated RBC/100 WBC (Bld) [Ratio] 0 % 0-5 [facility] Work Phone: MCHC Auto (RBC) [Mass/Vol]on 10-13-2021 MCHC (RBC) [Mass/Vol] 33.3 g/dL 32-36 [facility] Work Phone: No Panel Informationon 10-13 Estimated GFR (MDRD) Amer 79 mL/min >60 [facility] Work Phone: Comment on above: GFR Calc Estimated GFR (MDRD) Non-Af Amer 66 mL/min >60 [facility] Work Phone: Comment on above: Non- GFR Calc Vitamin D 25-Hydroxy 67.4 ng/mL [facility] Work Phone: Comment on above: Vitamin D 25(OH) Sta tus Range Deficiency <20 ng/mL (50nmol/L) Insufficiency 20 - 30 ng/mL (50 - 75 nmol/L) Sufficiency 30 - 100 ng/mL (75 - 250 nmol/L) Toxicity >100 ng/mL (>250 nmol/L) Platelets bldon 10-13-2021 Platelets (Bld) [#/Vol] 158 10*3/uL 150-450 [facility] Work Phone: Serum or plasma albumin kim urement (mass/volume)on 10-13-2021 Albumin [Mass/Vol] 2.9 g/dL 3.2-5.0 [facility] Work Phone: Serum or plasma albumin/glob ulin mass ratioon 10-13-2021 Albumin/Globulin [Mass ratio] 0.6 {ratio} 0.9-2.4 [facility] Work Phone: Serum or plasma calcium kim urement (mass/volume)on 10-13-2021 Calcium [Mass/Vol] 8.8 mg/dL 8.5-10.1 [facility] Work Phone: Serum or plasma creatinine m easurement (mass/volume)on 10-13-2021 Creatinine [Mass/Vol] 0.91 mg/dL 0.55-1.02 [facility] Work Phone: Comment on above: The validity of the calculated GFR & GFRAA in patients over 70 years has not been determined. Clinical correlation is essential. Serum or plasma urea nitroge n measurement (mass/volume)on 10-13-2021 Urea nitrogen [Mass/Vol] 13 mg/dL 7-18 [facility] Work Phone: Thin prep Papanicolaou smear with manual screeningon 10-13-2021 Thin prep Papanicolaou smear with manual screening 28 U/L 15-37 [facility] Work Phone: Thin prep Papanicolaou smear with manual screening 7 5-15 [facility] Work Phone: CNOVSPon 10-02-2021 CNOVSP Visit (SP) Office (ROGELIO) ----- VIDA NINA ([id number]) 1950 F Date Time Provider Department 10/02/21 1:00 PM JENNIFER CUEVAS During your visit today, we recorded the following information about you: Temperature Pulse Respiration Blood pressure 97.4 degrees 103/minute 20/minute 152/85 Weight Height 136.5 kg 1.651 m Moriah Aldridge RN 10/02/2021 12:52 PM Signed Patient arrived [place] [id number] in [facility] for post op visit. Patient admits to pain in abd and lower back resolved since surgery. Pt denies any new concerns, today. Pt here with Marguerite, friend. Enc and support provided. JESUS Lynch MD 12/01/2021 8:04 AM Signed Gynecologic Oncology [facility] Follow up visit Date of service: 10/02/2021 PROBLEM/CC: Vida Nina presents for a post-op visit. SURGICAL PATHOLOGY [[id number]] Collected: 09/07/21 1104 Order Status: Completed Specimen: Tissue from UTERUS, CERVIX, BILATERAL FALLOPIAN TUBES AND BILATERAL OVARIES Updated: 09/11/21 1319 Case Report -- Surgical Pathology Report ? Case: [id number] ? Authorizing Provider: ?Jennifer Cuevas MD ? [...] A11 and A16 were reviewed at the [facility] gynecologic pathology consensus conference via telepathology on 09/09/[address] Lupe Younger and Andra Franco agree with the diagnosis of acute salpingitis. ? Laboratory Developed Test (LDT) Disclaimer: Performance characteristics of immunohistochemical, immunofluorescent and chromogenic in-situ hybridization tests have been determined by the performing laboratory within [facility]?s [facility] ([facility], [facility], [facility] or [facility]) in a manner consistent with [...] ?Not iden (more content not included)... Normal [facility] Glucose Glucometer (BldC) [M ass/Vol]on 09-22-2021 Glucose [Mass/Vol] 145 mg/dL 74-106 [facility] Work Phone: Comment on above: MANAGEMENT OF PATIEN T CARE PER NURSING PROTOCOL Darren 09-21-2021 MICHELLEN Telephone (ÁNGEL Sprague) ----- VIDA NINA ([id number]) 1950 F Date Time Provider Department 09/21/21 JENNIFER CUEVAS During your visit today, we recorded the following information about you: Jeffrey Ferris 09/21/2021 12:15 PM Signed Spoke to Nurse Bernadine from [facility] stated that the patient is in [...] ERYTHEMATOSUS [M32.9] 07/15/2005 MYALGIA AND MYOSITIS NOS [[id number]] 07/15/2005 Elevated transaminase level [R74.01] 09/04/2014 Elevated blood sugar [R73.9] 09/04/2014 Mood disorder (HCC) [F39] 09/04/2014 Hard to intubate [T88.4XXA] 09/07/2021 Encounter for postoperative care [Z48.89] 09/07/2021 Endometrial cancer (HCC) [C54.1] 09/08/2021 Encounter Status:Closed by JEFFREY FERRIS on 09/21/21 [facility] Absolute lymphocyte counton 09-20-2021 Lymphocytes Auto (Unsp spec) [#/Vol] 0.99 10*3/uL 0.83-4.51 [facility] Work Phone: Basophil percentageon 2021 Basophils/100 WBC (Bld) 0.6 % 0-1 [facility] Work Phone: Chloride [Moles/Vol] 109 mmol/L 98-107 [facility] Work Phone: Eosinophils/100 WBC (Bld) 2.6 % 0-5 [facility] Work Phone: Glucose [Mass/Vol] 211 mg/dL 74-106 [facility] Work Phone: Comment on above: Glucose result great er than or equal to 200 mg/dLsuggests DIABETES MELLITUS per A.D.A. criteria. Neutrophils (Bld) [#/Vol] 3.4 10*3/uL 2.0-7.7 [facility] Work Phone: Neutrophils/100 WBC (Bld) 67.6 % 47-70 [facility] Work Phone: Potassium [Moles/Vol] 4.4 mmol/L 3.5-5.1 [facility] Work Phone: Sodium [Moles/Vol] 138 mmol/L 136-145 [facility] Work Phone: WBC (Bld) [#/Vol] 5.0 10*3/uL 4.4-11.0 [facility] Work Phone: Blood erythrocytes count (nu mber/volume)on 09-20-2021 RBC (Bld) [#/Vol] 4.50 10*6/uL 4.2-5.4 [facility] Work Phone: Blood hemoglobin measurement (mass/volume)on 09-20-2021 Hemoglobin (Bld) [Mass/Vol] 12.8 g/dL 12.0-15.0 [facility] Work Phone: Blood lymphocytes/100 leukoc yteson 09-20-2021 Lymphocytes/100 WBC (Bld) 19.7 % 19-41 [facility] Work Phone: Blood monocytes/100 leukocyt eson 09-20-2021 Monocytes/100 WBC (Bld) 9.1 % 0-10 [facility] Work Phone: Blood platelet mean volumeon 09-20-2021 Platelet mean volume (Bld) [Entitic vol] 9.8 fL 6.2-12.0 [facility] Work Phone: Determination of erythrocyte mean corpuscular volume (MCV)on 09-20-2021 MCV (RBC) [Entitic vol] 87.6 fL 81-99 [facility] Work Phone: Hematocrit Auto (Bld) [Volum e fraction]on 09-20-2021 Hematocrit (Bld) [Volume fraction] 39.4 % 37-47 [facility] Work Phone: Laboratory - Chemistry and C hemistry - challengeon 09-20-2021 CO2 [Moles/Vol] 24.0 mmol/L 21.0-32.0 [facility] Work Phone: Natriuretic peptide B (Bld) [Mass/Vol] 43.0 pg/mL 0-100 [facility] Work Phone: Urea nitrogen/Creatinine [Mass ratio] 14.0 mg/mg 10-20 [facility] Work Phone: Laboratory - Hematology and Cell countson 09-20-2021 Erythrocyte distribution width (RBC) [Entitic vol] 47.4 fL 35.1-43.9 [facility] Work Phone: Erythrocyte distribution width (RBC) [Ratio] 14.7 % 11.6-14.6 [facility] Work Phone: Immature granulocytes/100 WBC (Bld) 0.400 % 0.0-0.9 [facility] Work Phone: Comment on above: IG% - Immature Granu locytes (promyelocytes, myelocytes and metamyelocytes) > 1% indicates that a LEFT SHIFT is Present. MCH (RBC) [Entitic mass] 28.4 pg 27.0-32.0 [facility] Work Phone: Nucleated RBC/100 WBC (Bld) [Ratio] 0 % 0-5 [facility] Work Phone: MCHC Auto (RBC) [Mass/Vol]on 09-20-2021 MCHC (RBC) [Mass/Vol] 32.5 g/dL 32-36 [facility] Work Phone: No Panel Informationon 09-20 Troponin I High Sensitivity < 3 pg/mL 3.0-54.0 [facility] Work Phone: Comment on above: Please Note: New Emma t Units and Gender Specific Reference Ranges. For more information see Policy Stat Procedure [place] High Sensitivity Troponin (TNIH) and attachments. D-Dimer Quantitative (PE/DVT) 2.47 FEU/ug/m 0.27-0.49 [facility] Work Phone: Comment on above: D-Dimer ELEVATED (>0 .49): Additional studies and clinicalassessments are indicated to conclude diagnosis of:Deep Vein Thrombosis (DVT) or Pulmonary Embolism (PE)CRITICAL VALUE VERIFIED. CALLED TO [place] [phone] Taniya Burden.RESULTS READ BACK BY SAME . Estimated Creatinine Clearance Calc 56.34 ml/min [facility] Work Phone: Estimated GFR (MDRD) Amer 85 mL/min >60 [facility] Work Phone: Comment on above: GFR Calc Estimated GFR (MDRD) Non-Af Amer 70 mL/min >60 [facility] Work Phone: Comment on above: Non- GFR Calc Platelets bldon 09-20-2021 Platelets (Bld) [#/Vol] 161 10*3/uL 150-450 [facility] Work Phone: Serum or plasma calcium kim urement (mass/volume)on 09-20-2021 Calcium [Mass/Vol] 9.4 mg/dL 8.5-10.1 [facility] Work Phone: Serum or plasma creatinine m easurement (mass/volume)on 09-20-2021 Creatinine [Mass/Vol] 0.86 mg/dL 0.55-1.02 [facility] Work Phone: Comment on above: The validity of the calculated GFR & GFRAA in patients over 70 years has not been determined. Clinical correlation is essential. Serum or plasma urea nitroge n measurement (mass/volume)on 09-20-2021 Urea nitrogen [Mass/Vol] 12 mg/dL 7-18 [facility] Work Phone: Thin prep Papanicolaou smear with manual screeningon 09-20-2021 Thin prep Papanicolaou smear with manual screening 5 5-15 [facility] Work Phone: OPERATIVE NOon 09-17-2021 OPERATIVE NO HNO ID: [id number] Author: Jennifer Cuevas MD Service: Gynecology Oncology Author Type: Physician Type: Operative Report Filed: 09/23/2021 10:50 AM Note Text: [facility] - Operative Report VIDA NINA : 1950 AGE: 70. SEX: F PATIENT TYPE: I HOSP SV: OBN LOCATION: [facility] ATTENDING PHYSICIAN: Jennifer Cuevas M.D. CSN NUMBER: [id number] DATE OF SURGERY/PROCEDURE: 09/07/2021 INCISION/PROCEDURE START TIME: 09:14 a.m. INCISION CLOSE/PROCEDURE END TIME: 12:36 p.m. 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 SURGEON: Jennifer Cuevas M.D. HAND TUBE WINDER: educational program assistant, Dr. Donal Naidu and Dr. Shanon [...] ligaments, which (more content not included)... Normal [facility] Bilirubin Test strip Ql (U)o n 09-10-2021 Bilirubin Ql (U) Negative Negative [facility] Work Phone: Darren 09-10-2021 MICHELLEN Telephone (JOSE MANUELYNONPO B) ----- VIDA NINA ([id number]) 1950 F Date Time Provider Department 09/10/21 TANIYA BALDERAS During your visit today, we recorded the following information about you: Taniya Balderas APRN.HELP DESK SUPERVISOR 09/10/2021 8:32 AM Signed Called [facility] left message on nurse line to [...] to. meds that are susceptible are iv. jail can recheck urine if still + then would need to get ID involved verbal instructions per Dr julieth Balderas, [facility] Allergies As of Date: 09/10/2021 Noted Allergy [...] ERYTHEMATOSUS [M32.9] 07/15/2005 MYALGIA AND MYOSITIS NOS [[id number]] 07/15/2005 Elevated transaminase level [R74.01] 09/04/2014 Elevated blood sugar [R73.9] 09/04/2014 Mood disorder (HCC) [F39] 09/04/2014 Hard to intubate [T88.4XXA] 09/07/2021 Encounter for postoperative care [Z48.89] 09/07/2021 Endometrial cancer (HCC) [C54.1] 09/08/2021 Encounter Status:Closed by TANIYA BALDERAS on 09/10/21 [facility] Culture, urineon 09-10-2021 Bacteria identified Cx Nom (U) Negative [facility] Work Phone: Ketones Test strip Ql (U)on 09-10-2021 Ketones Ql (U) Negative Negative [facility] Work Phone: Nitrite Test strip Ql (U)on 09-10-2021 Nitrite Ql (U) Negative Negative [facility] Work Phone: Protein Test strip Ql (U)on 09-10-2021 Protein Ql (U) Negative Negative [facility] Work Phone: Urine blood detectionon RBC Ql (U) 25 /ul Negative [facility] Work Phone: Urine clarityon 09-10-2021 Clarity (U) Clear Clear [facility] Work Phone: Urine color determinationon 09-10-2021 Color (U) Yellow Yellow [facility] Work Phone: Urine glucose detectionon Glucose Ql (U) Normal mg/dl Normal [facility] Work Phone: Urine leukocyte esterase det ection by dipstickon 09-10-2021 Leukocyte esterase Test strip Ql (U) 25 /ul Negative [facility] Work Phone: Urine pHon 09-10-2021 pH (U) 7.0 [pH] 5.0 - 8.0 [facility] Work Phone: Urine specific gravity measu rementon 09-10-2021 Specific gravity (U) [Rel density] 1.005 1.002-1.03 0 [facility] Work Phone: Urobilinogen Auto test strip Ql (U)on 09-10-2021 Urobilinogen Ql (U) Normal mg/dl Normal [facility] Work Phone: ANES POSTPROC EVALon 022 ANES POSTPROC EVAL HNO ID: [id number] Author: Darrion Payne MD Service: Anesthesiology Author Type: Physician Type: Anesthesia Postprocedure Evaluation Filed: 09/09/2021 12:30 PM Note Text: POST ANESTHESIA EVALUATION NOTE : 1950 Procedure Summary Date: 09/07/21 Room / Location: [place] [address] [place] [address] OR Anesthesia Start: 812 Anesthesia Stop: 1242 [...] September 09, 2021 TIME: 12:30 PM [id number]N Tele[facility] (ÁNGEL Sprague) ----- VIDA NINA ([id number]) 1950 F Date Time Provider Department 09/09/21 JENNIFER CUEVAS During your visit today, we recorded the following information about you: Summer Turcios RN 09/09/2021 2:15 PM Signed Franklin, administrative nursing supervisor at [facility] called stated, "one of patient's lap [...] confidential e-mail) Attempted to call Franklin at [facility] to review above message, no answer. Left message on voicemail to return call. JESUS Shah RN 09/09/2021 2:53 PM Signed Franklin from [facility] returned call to this RN. Reviewed message from Sebas Cuevas MD. Instructed Franlkin to monitor patient's lap site and call [...] ERYTHEMATOSUS [M32.9] 07/15/2005 MYALGIA AND MYOSITIS NOS [[id number]] 07/15/2005 Elevated transaminase level [R74.01] 09/04/2014 Elevated blood sugar [R73.9] 09/04/2014 Mood disorder (HCC) [F39] 09/04/2014 Hard to intubate [T88.4XXA] 09/07/2021 Encounter for postoperative care [Z48.89] 09/07/2021 Endometrial cancer (HCC) [C54.1] 09/08/2021 Encounter Status:Closed by SUMMER TURCIOS on 09/09/21 [facility] CASE MANAGEMon 09-08-2021 CASE MANAGEM HNO ID: [id number] Author: Rosmery Mclaughlin RN Service: ? Author [...] [facility] is aware of DC and pickling operator time. RN to call report. TRANSPORTATION ARRANGEMENTS: Transportation Arrangements: ([facility]) ADDITIONAL CONTACT RESOURCES: n/a DC orders completed. Patient is discharging back to [facility]. The facility has arranged for [facility] transport to pick her up at 1pm. RN is aware. Met with patient at bedside to notify of DC and transport time. SIGNATURE: Rosmery Mclaughlin RN PATIENT NAME: Vida Nina DATE: September 08, 2021 TIME: 12:28 PM PAGER/CONTACT #: [phone] [facility] HNO ID: [id number] Author: Rosmery Mclaughlin RN Service: ? Author Type: Registered Nurse Type: Care Mgt Initial Assessment Filed: 09/08/2021 10:24 AM Note Text: CARE MANAGEMENT: ASSESSMENT AND DISCHARGE PLAN SERVICE DATE: September 08, 2021 SERVICE TIME: 10:22 AM PRIMARY CARE PHYSICIAN: No primary care provider on file. 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 No Is Patient Psychosocially Complex?: No ASSESSMENT AND PLAN: Medical Needs: Medical Needs: Two or more chronic diseases Psychosocial Needs: Psychosocial Needs: None FREEDOM OF CHOICE EXPLAINED: [place] of Choice Given: No Reason Not Given: Patient refused (patient prefers to return to [facility]) POTENTIAL TRANSITION PLANS Home Chart reviewed and met with patient. She is from [facility]. 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 Plan is to return to [place]. Spoke with Zari at [facility]. They will send [employer] transport to pickling operator patient at 1pm. Will updated patient and RN. SIGNATURE: Rosmery Mclaughlin RN PATIENT NAME: Vida Nina DATE: September 08, 2021 TIME: 10:22 AM PAGER/CONTACT #: [phone] [facility] 09-08-2021 [facility] HNO ID: [id number] Author: Sam Naidu DO Service: Gynecology Oncology [...] Time Provider Department Center 09/22/2021 2:30 PM [id number]-SFSXWEPIJENNIFER CUEVAS POB DISCHARGE MEDICATIONS Current Discharge Medication [...] September 08, 2021 TIME: 7:27 AM PAGER: [phone] Normal [facility] ANES PRE-OPon 09-07-2021 ANES PRE-OP HNO ID: [id number] Author: Darrion Payne MD Service: Anesthesiology Author Type: Physician Type: Anesthesia Preprocedure Evaluation Filed: 09/07/2021 8:58 AM Note Text: ANESTHESIOLOGY DAY OF SURGERY NOTE : 1950 Procedure Information Anesthesia Start Date/Time: 09/07/2113 Procedures: EXAM UNDER ANESTHESIA PELVIC / VAGINAL (N/A Pelvis) LAPAROSCOPIC HYSTERECTOMY TOTAL FOR UTERUS 250 G OR LESS W/REMOVAL TUBE(S) AND/OR OVARY(S) (N/A Abdomen) LAPAROSCOPY SURGICAL W/RETROPERITONEAL LYMPH NODE SAMPLING SINGLE OR MULTIPLE (N/A Abdomen) LAPAROTOMY PELVIC (N/A Pelvis) Location: [place] / [place] Surgeons: Jennifer Cuevas MD Estimated body [...] September 07, 2021 TIME: 8:57 AM CSN: [id number] [facility] BRIEF OP NOTon 09-07-2021 BRIEF OP NOT HNO ID: [id number] Author: Sam Naidu DO Service: Gynecology Oncology Author Type: Resident Type: Brief Op Note Filed: 09/07/2021 1:06 PM Note Text: BRIEF OPERATIVE / PROCEDURE NOTE LOG ID: [id number] SURGERY/PROCEDURE DATE: 09/07/2021 INCISION/PROCEDURE START TIME: 9:14 AM INCISION CLOSE/PROCEDURE END TIME: 12:36 PM SURGEON(S)/PROCEDURALIST( S) AND HAND TUBE WINDER(S): Surgeon(s) and Role: * Jennifer Cuevas MD [...] September 07, 2021 TIME: 1:01 PM Normal [facility] Bacteria Ur Culton 2 Bacteria identified [...] F Trimeth sulfameth R >2 F Abnormal [facility] Comment on above: Performed By: #### 6 30-4 ####[facility] [id number] [place] [address] [place] Basic metabolic 2000 panelon 09-07-2021 Anion gap [Moles/Vol] 13 mmol/L Normal 9-18 [facility] Comment on above: Order Comment: Bobbi alford Type: BLOOD SPECIMEN Ordering Facility: [facility] Address: [address] [place] [address] Performed By: #### 2 4321-2 #### [facility] CLIA [id number] [address] STATES OF [facility] Calcium [Mass/Vol] 9.2 mg/dL Normal 8.5-10.2 [facility] Comment on above: Order Comment: Bobbi alford Type: BLOOD SPECIMEN Ordering Facility: [facility] Address: [address] [address] Performed By: #### 2 4321-2 #### [facility] CLIA [id number] [address] [place] Chloride [Moles/Vol] 97 mmol/L Normal 97-105 [facility] Comment on above: Order Comment: Speci men Type: BLOOD SPECIMEN Ordering Facility: [facility] Address: [address] [place] [address] Performed By: #### 2 4321-2 #### [facility] CLIA [id number] [address] [place] CO2 [Moles/Vol] 22 mmol/L Normal 22-30 [facility] Comment on above: Order Comment: Speci men Type: BLOOD SPECIMEN Ordering Facility: [facility] Address: [address] [place] [address] Performed By: #### 2 4321-2 #### [facility] CLIA [id number] [address] [place] [address] STATES OF [facility] Creatinine [Mass/Vol] 0.70 mg/dL Normal 0.58-0.96 [facility] Comment on above: Order Comment: Speci men Type: BLOOD SPECIMEN Ordering Facility: [facility] Address: [address] [place] [address] Performed By: #### 2 4321-2 #### [facility] CLIA [id number] [address] [place] [address] [place] ESTIMATED GLOMERULAR FILTRATION RATE 94 mL/min/1.73m??? Normal >=60 [facility] Comment on above: Order Comment: Speci men Type: BLOOD SPECIMEN Ordering Facility: [facility] Address: [address] [place] [address] Result Comment: Laura mated Glomerular Filtration Rate [...] GFR. Performed By: #### 2 4321-2 #### [facility] CLIA [id number] [address] [place] [address] [place] Glucose [Mass/Vol] 303 mg/dL High 74-99 [facility] Comment on above: Order Comment: Bobbi alford Type: BLOOD SPECIMEN Ordering Facility: [facility] Address: [address] [place] [address] Result Comment: The [place] Diabetes Association (ADA) provides guidance for cutoff [...] Standards of Medical Care in Diabetes 2016, [place] [employer] Association. Diabetes Care. 2016.39(Suppl 1). Performed By: #### 2 4321-2 #### [facility] CLIA [id number] [address] [place] [address] [place] Potassium [Moles/Vol] 4.9 mmol/L Normal 3.7-5.1 [facility] Comment on above: Order Comment: Bobbi alford Type: BLOOD SPECIMEN Ordering Facility: [facility] Address: [address] [place] [address] Performed By: #### 2 4321-2 #### [facility] CLIA [id number] [address] [place] [address] [place] Sodium [Moles/Vol] 132 mmol/L Low 136-144 [facility] Comment on above: Order Comment: Bobbi alford Type: BLOOD SPECIMEN Ordering Facility: [facility] Address: [address] [place] [address] Performed By: #### 2 4321-2 #### [facility] CLIA [id number] [address] [place] Urea nitrogen [Mass/Vol] 13 mg/dL Normal 7-21 [facility] Comment on above: Order Comment: Speci men Type: BLOOD SPECIMEN Ordering Facility: [facility] Address: [address] [place] [address] Performed By: #### 2 4321-2 #### [facility] CLIA [id number] [address] STATES OF [facility] CBC panel Auto (Bld)on 09-07 Erythrocyte distribution width (RBC) [Ratio] 14.2 % Normal 11.5-15.0 [facility] Comment on above: Order Comment: Speci men Type: BLOOD SPECIMEN Ordering Facility: [facility] Address: [address] [place] [address] Performed By: #### 5 8410-2 #### [facility] CLIA [id number] [address] Hematocrit (Bld) [Volume fraction] 44.0 % Normal 36.0-46.0 [facility] Comment on above: Order Comment: Speci men Type: BLOOD SPECIMEN Ordering Facility: [facility] Address: [address] [place] [address] Performed By: #### 5 8410-2 #### [facility] CLIA [id number] [address] STATES OF [facility] Hemoglobin (Bld) [Mass/Vol] 14.2 g/dL Normal 11.5-15.5 [facility] Comment on above: Order Comment: Speci men Type: BLOOD SPECIMEN Ordering Facility: [facility] Address: [address] [place] [address] Performed By: #### 5 8410-2 #### [facility] CLIA [id number] [address] OF [facility] MCH (RBC) [Entitic mass] 28.9 pg Normal 26.0-34.0 [facility] Comment on above: Order Comment: Speci men Type: BLOOD SPECIMEN Ordering Facility: [facility] Address: [address] [address] Performed By: #### 5 8410-2 #### [facility] CLIA [id number] [address] MCHC (RBC) [Mass/Vol] 32.3 g/dL Normal 30.5-36.0 [facility] Comment on above: Order Comment: Speci men Type: BLOOD SPECIMEN Ordering Facility: [facility] Address: [address] [place] [address] Performed By: #### 5 8410-2 #### [facility] CLIA [id number] [address] MCV (RBC) [Entitic vol] 89.6 fL Normal 80.0-100.0 [facility] Comment on above: Order Comment: Speci men Type: BLOOD SPECIMEN Ordering Facility: [facility] Address: [address] [place] [address] Performed By: #### 5 8410-2 #### [facility] CLIA [id number] [address] Nucleated RBC (Bld) [#/Vol] 10*3/uL Normal <0.01 [facility] Comment on above: Order Comment: Speci men Type: BLOOD SPECIMEN Ordering Facility: [facility] Address: [address] [place] [address] Performed By: #### 5 8410-2 #### [facility] CLIA [id number] [address] Platelet mean volume (Bld) [Entitic vol] 10.8 fL Normal 9.0-12.7 [facility] Comment on above: Order Comment: Speci men Type: BLOOD SPECIMEN Ordering Facility: [facility] Address: [address] [place] [address] Performed By: #### 5 8410-2 #### [facility] CLIA [id number] [address] Platelets (Bld) [#/Vol] 153 10*3/uL Normal 150-400 [facility] Comment on above: Order Comment: Speci men Type: BLOOD SPECIMEN Ordering Facility: [facility] Address: [address] [place] [address] Performed By: #### 5 8410-2 #### [facility] CLIA [id number] [address] [place] RBC (Bld) [#/Vol] 4.91 10*6/uL Normal 3.90-5.20 [facility] Comment on above: Order Comment: Speci men Type: BLOOD SPECIMEN Ordering Facility: [facility] Address: [address] [place] [address] Performed By: #### 5 8410-2 #### [facility] CLIA [id number] [address] WBC (Bld) [#/Vol] 8.23 10*3/uL Normal 3.70-11.00 [facility] Comment on above: Order Comment: Speci men Type: BLOOD SPECIMEN Ordering Facility: [facility] Address: [address] [place] [address] Performed By: #### 5 8410-2 #### [facility] CLIA [id number] [address] OF [facility] CONSULT PROGon 09-07-2021 CONSULT PROG HNO ID: [id number] Author: Niki Crabtree RPh Service: Pharmacy Author [...] Crabtree RPh DATE/TIME: 09/07/2021 4:32 PM [facility] NURSING PROGon 09-07-2021 NURSING PROG HNO ID: [id number] Author: Lydia Oliver RN Service: Nursing Author Type: Registered Nurse Type: Nursing Progress Note Filed: 09/07/2021 3:19 PM Note Text: Spoke with Bernadine at [facility] to let her know patient was spending the night, as she said there is no nursing staff after 2300 Normal [facility] NURSING PROG HNO ID: [id number] Author: Lydia Oliver RN Service: Nursing Author [...] will continue home meds on the floor. [facility] SARS-CoV-2 RNA Resp Ql SALLY+p robeon 09-07-2021 SARS-CoV-2 (COVID-19) RNA SALLY+probe Ql (Resp) COVID 19 RESULT: SARS-CoV-2 (Agent of COVID-19) Not Detected by RT-PCR or equivalent method. This test has been authorized by FDA under an Emergency Use Authorization (EUA). [facility] Comment on above: Performed By: #### 9 4500-6 ####[facility] [id number] [address] STATES OF [facility] SURGICAL PATHOLOGYon 022 CASE REPORT [facility] Comment on above: Order Comment: Speci men Type: TISSUE SPECIMEN Ordering Facility: [facility] Address: [address] [place] [address] Result Comment: Surg ica Pathology Report Case: [id number] Authorizing Provider: Jennifer Cuevas MD Collected: 09/07/2021 11:04 AM Ordering Location: [place] [facility] Received: 09/07/2021 11:12 AM Pathologist: Oseas May MD Intraop: Derick Alvarez MD Specimen: UTERUS, CERVIX, BILATERAL FALLOPIAN TUBES AND BILATERAL OVARIES Performed By: #### S #### [facility] CLIA [id number] [address] DIAGNOSIS COMMENT Normal [facility] Comment on above: Order Comment: Speci men Type: TISSUE SPECIMEN Ordering Facility: [facility] Address: [address] [place] [address] Result Comment: Immu nohistochemical staining performed on [...] A11 and A16 were reviewed at the [facility] gynecologic pathology consensus conference via telepathology on 09/09/[address] Lupe Younger and Andra Franco agree with the diagnosis of acute salpingitis. Laboratory Developed Test (LDT) Disclaimer: Performance characteristics of immunohistochemical, immunofluorescent and chromogenic in-situ hybridization tests have been determined by the performing laboratory within [facility]???s [facility] ([facility], [facility], [facility] or [facility]) in a manner consistent with CLIA requirements. One or more of these tests have not been cleared or approved by the FDA. [facility] is regulated under CLIA as qualified to perform high-complexity testing. These tests are used for clinical purposes. They should not be regarded as investigational or for research. Positive and negative controls stain appropriately. Performed By: #### S #### [facility] CLIA [id number] [address] FINAL DIAGNOSIS Normal [facility] Comment on above: Order Comment: Speci men Type: TISSUE SPECIMEN Ordering Facility: [facility] Address: [address] [place], [place] [address] Result Comment: A. U terus, cervix, bilateral [...] -Unremarkable ovaries. Performed By: #### S #### [facility] CLIA [id number] [address] FINAL PERFORMING LAB Normal [facility] Comment on above: Order Comment: Speci men Type: TISSUE SPECIMEN Ordering Facility: [facility] Address: [address] [place] [address] Result Comment: Diag nostic interpretation performed at [facility], [address] [place] [address] CLIA# [id number] Nurse Head: Alok Jonas M.D. Performed By: #### S #### [facility] CLIA [id number] [address] GROSS DESCRIPTION Normal [facility] Comment on above: Order Comment: Speci men Type: TISSUE SPECIMEN Ordering Facility: [facility] Address: [address] [address] Result Comment: A. U TERUS, CERVIX, BILATERAL [...] fibrous ovarian parenchyma with no lesions identified. Sliver Lap Machine Tender sections are submitted as follows: A1-anterior cervix [...] A 17-right ovary Gross examination performed at [facility], [address] [place] [address] CLIA#[id number] OLS September 08, 2021 10:33 AM Performed By: #### S #### [facility] CLIA [id number] [address] STATES [facility] INTRAOPERATIVE DIAGNOSIS Normal [facility] Comment on above: Order Comment: Speci men Type: TISSUE SPECIMEN Ordering Facility: [facility] Address: [address] [place] [address] Result Comment: A. U TERUS, CERVIX, BILATERAL FALLOPIAN TUBES AND BILATERAL OVARIES. Gross diagnosis: Uterus, cervix, bilateral fallopian tubes, bilateral ovaries- Endometrial tumor grossly invading greater than 50% into the uterine wall (AC) Performed By: #### S #### [facility] CLIA [id number] [address] STATES [place] SYNOPTIC REPORT ENDOMETRIUM Normal [facility] Comment on above: Order Comment: Speci men Type: TISSUE SPECIMEN Ordering Facility: [facility] Address: [address] [place] [address] Result Comment: ENDO METRIUM, HYSTERECTOMY - All [...] Stage: IB Performed By: #### S #### [facility] CLIA [id number] [address] OF [facility] CBC panel Auto (Bld)on 09-01 Erythrocyte distribution width (RBC) [Ratio] 14.5 % Normal 11.5-15.0 [facility] Comment on above: Order Comment: Speci men Type: BLOOD SPECIMEN Ordering Facility: [facility] Address: [address] [address] Performed By: #### 5 8410-2 #### [facility] CLIA [id number] [address] OF [facility] Hematocrit (Bld) [Volume fraction] 41.0 % Normal 36.0-46.0 [facility] Comment on above: Order Comment: Speci men Type: BLOOD SPECIMEN Ordering Facility: [facility] Address: [address] [address] Performed By: #### 5 8410-2 #### [facility] CLIA [id number] 1 03 [address] [facility] Hemoglobin (Bld) [Mass/Vol] 13.3 g/dL Normal 11.5-15.5 [facility] Comment on above: Order Comment: Speci men Type: BLOOD SPECIMEN Ordering Facility: [facility] Address: [address] [address] Performed By: #### 5 8410-2 #### [facility] CLIA [id number] [address] MCH (RBC) [Entitic mass] 28.8 pg Normal 26.0-34.0 [facility] Comment on above: Order Comment: Speci men Type: BLOOD SPECIMEN Ordering Facility: [facility] Address: [address] [place] [address] Performed By: #### 5 8410-2 #### [facility] CLIA [id number] [address] MCHC (RBC) [Mass/Vol] 32.4 g/dL Normal 30.5-36.0 [facility] Comment on above: Order Comment: Speci men Type: BLOOD SPECIMEN Ordering Facility: [facility] Address: [address] [place] [address] Performed By: #### 5 8410-2 #### [facility] CLIA [id number] [address] MCV (RBC) [Entitic vol] 88.7 fL Normal 80.0-100.0 [facility] Comment on above: Order Comment: Speci men Type: BLOOD SPECIMEN Ordering Facility: [facility] Address: [address] [place] [address] Performed By: #### 5 8410-2 #### [facility] CLIA [id number] [address] Nucleated RBC (Bld) [#/Vol] 10*3/uL Normal <0.01 [facility] Comment on above: Order Comment: Speci men Type: BLOOD SPECIMEN Ordering Facility: [facility] Address: [address] [place] [address] Performed By: #### 5 8410-2 #### [facility] CLIA [id number] [address] Platelet mean volume (Bld) [Entitic vol] 10.5 fL Normal 9.0-12.7 [facility] Comment on above: Order Comment: Speci men Type: BLOOD SPECIMEN Ordering Facility: [facility] Address: [address] [place] [address] Performed By: #### 5 8410-2 #### [facility] CLIA [id number] [address] Platelets (Bld) [#/Vol] 167 10*3/uL Normal 150-400 [facility] Comment on above: Order Comment: Speci men Type: BLOOD SPECIMEN Ordering Facility: [facility] Address: [address] [place] [address] Performed By: #### 5 8410-2 #### [facility] CLIA [id number] [address] RBC (Bld) [#/Vol] 4.62 10*6/uL Normal 3.90-5.20 [facility] Comment on above: Order Comment: Speci men Type: BLOOD SPECIMEN Ordering Facility: [facility] Address: [address] [place] [address] Performed By: #### 5 8410-2 #### [facility] CLIA [id number] [address] WBC (Bld) [#/Vol] 6.29 10*3/uL Normal 3.70-11.00 [facility] Comment on above: Order Comment: Speci men Type: BLOOD SPECIMEN Ordering Facility: [facility] Address: [address] [place] [address] Performed By: #### 5 8410-2 #### [facility] CLIA [id number] [address] CONFIRM BLOOD TYPEon 022 ABO O Normal [facility] Comment on above: Order Comment: Speci men Type: BLOOD SPECIMEN Ordering Facility: [facility] Address: [address] [place] [address] Performed By: #### C ONABO #### [facility] CLIA [id number] [address] Rh Nom (Bld) Positive Normal [facility] Comment on above: Order Comment: Speci men Type: BLOOD SPECIMEN Ordering Facility: [facility] Address: [address] [place] [address] Performed By: #### C ONABO #### [facility] CLIA [id number] [address] [id number] [facility] HISTORY PHYSICALon 2 HISTORY PHYSICAL HNO ID: [id number] Author: Naila Barrientos APRN.MICHELLE Service: ? Author [...] with Dr. Cuevas. Surgery will be at [facility] OR Scheduled as an TBA Have you [...] Negative for: AICD/PPM, chest pain, CHF, recent ND and open heart surgery. GI: Positive for: abdominal pain Negative for: nausea and vomiting. : No history of dysuria, frequency or incontinence, stones or chronic kidney disease. No difficulty urinating, nocturia > 1 time per night or hematuria. EROSION CONTROL COORDINATOR: S/p menopause Endocrine: Positive for: diabetes mellitus. [...] Yes de (more content not included)... Normal [facility] TYPE AND SCREEN,30 DAYon ABO O Normal [facility] Comment on above: Order Comment: Speci men Type: BLOOD SPECIMEN Ordering Facility: [facility] Address: [address] [place] [address] Performed By: #### T SCR30 #### [facility] CLIA [id number] [address] [place] [address] HISTORICAL AB SCR STATUS Negative [facility] Comment on above: Order Comment: Speci men Type: BLOOD SPECIMEN Ordering Facility: [facility] Address: [address] [place] [address] Performed By: #### T SCR30 #### [facility] CLIA [id number] [address] [place] [address] Rh Nom (Bld) Positive [facility] Comment on above: Order Comment: Speci men Type: BLOOD SPECIMEN Ordering Facility: [facility] Address: [address] [place] [address] Performed By: #### T SCR30 #### 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 Age at Menarche: ? Age at First : ? Age at Menopause: ? Cyber Software Engineer History Comments: ? Sexual Activity: Not Asked; [...] as needed. (more content not included)... Normal [facility] Darren 08-07-2021 SHORTY Telephone (ÁNGEL Sprague) ----- VIDA NINA ([id number]) 1950 F Date Time Provider Department 08/07/21 JENNIFER CUEVAS During your visit today, we recorded the following information about you: Jeffrey Ferris 08/07/2021 1:26 PM Signed Called gilberto the nurse at [facility] where the patient is living and she [...] ERYTHEMATOSUS [M32.9] 07/15/2005 MYALGIA AND MYOSITIS NOS [AHT2519] 07/15/2005 Elevated transaminase level [R74.01] 09/04/2014 Elevated blood sugar [R73.9] 09/04/2014 Mood disorder (HCC) [F39] 09/04/2014 Encounter Status:Closed by JEFFREY FERRIS on 08/07/21 [facility] 08-05-2021 CNPN Telephone (OBGYWM) ----- VIDA NINA ([id number]) 1950 F Date Time Provider Department 08/05/21 KRUNAL ERAZO During your visit today, we recorded the following information about you: Krunal Erazo MD 08/05/2021 8:30 AM Signed Called listed numbers under home phone, and the numbers are not working. Called number listed for patient's mental health case manager regarding results, but it was stated that patient does not have a mental health case manager currently. I was given the number [phone] to call, which is [facility] where patient resides. Called this number and left a VM asking them to call back regarding patient results. I had offered the patient a follow up visit this week to review results, but she did prefer a phone call. Pathology shows endometrioid adenocarcinoma. I will place a referral to [facility]. Recommend that she see Dr. Jennifer Cuevas in [place] as that would be the closest for her. Krunal Erazo MD 08/05/2021 10:06 AM Signed Discussed results with a nurse Iglberto over the phone and plan of care. [...] and that I placed a referral to [facility] for a consultation. Please assist in scheduling this patient. Andra Jesus RN 08/05/2021 11:33 AM Signed Scheduled patient with Dr. Cuevas this Tuesday, 08/07 at 1:00 PM. Spoke with the nurse, Gilberto. Patient's CT scan is scheduled for Tuesday. Phone number given to change appointment since transportation needs arranged. Notified Gilberto that he is in [place] on Tuesdays and every other Tuesday. 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] Order(s):CONSULT TO GYNECOLOGIC/ONCOLOGY [[id number]] Order #: [id number]: 1 FUTURE Prescriptions as of 08/05/2021 - [...] ERYTHEMATOSUS [M32.9] 07/15/2005 MYALGIA AND MYOSITIS NOS [[id number]] 07/15/2005 Elevated transaminase level [R74.01] 09/04/2014 Elevated blood sugar [R73.9] 09/04/2014 Mood disorder (HCC) [F39] 09/04/2014 Encounter Status:Closed by PAMELA MATUTE RN on 08/05/21 Normal [facility] No Panel Informationon 07-30 [place] 125 Antigen 85.5 U/mL 0.0-38.1 [facility] Work Phone: Comment on above: [employer] El ectrochemiluminescence Immunoassay(ECLIA)Values obtained with different assay methods or kits cannotbe used interchangeably. 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 Normal [facility] SURGICAL PATHOLOGYon 022 SURGICAL PATHOLOGY ADDENDUM PRESENT Specimen originated from [facility] Specimen #: [id number] Submitting Physician: KRUNAL ERAZO, DO FINAL DIAGNOSIS [...] in-situ hybridization tests have been determined by [facility]'s [facility] Pathology and Laboratory [facility]) in a manner consistent with CLIA requirements. One or more of these tests have not been cleared or approved by the FDA. [facility] is regulated under CLIA as qualified to [...] completed on all uterine/endometrial carcinomas at the [facility]. IHC stains for MMR proteins [...] more information or questions, please call the [facility] at . Andra Webb (more content not included)... Normal [facility] CNPElva 07-27-2021 CNPN Telephone (OBGYWM) ----- VIDA NINA ([id number]) 1950 F CPA Date Time Provider Department [...] it's received from hospital. Andra Jesus RN Andra Jesus RN 07/27/2021 8:23 AM Signed Report received. To SW to review. Krunal Erazo MD 07/27/2021 9:03 AM Signed ER records reviewed. Hgb 13.8 and stable in ER. Pelvic ultrasound shows cervical mass and endometrial thickening. Of note, patient is minimally ambulatory and coming from [facility]. Since she is a new patient who is minimally ambulatory, and likely needs an EMB and cervical biopsies, would prefer to have 60 min appointment to get everything completed in one day as well as patent counsel her. Can offer her the 2.20 and [...] ERYTHEMATOSUS [M32.9] 07/15/2005 MYALGIA AND MYOSITIS NOS [[id number]] 07/15/2005 Elevated transaminase level [R74.01] 09/04/2014 Elevated blood sugar [R73.9] 09/04/2014 Mood disorder (HCC) [F39] 09/04/2014 Encounter Status:Closed by ELISABETH GREEN LPN on 07/27/21 Normal [facility] Absolute lymphocyte counton 07-26-2021 Lymphocytes Auto (Unsp spec) [#/Vol] 1.24 10*3/uL 0.83-4.51 [facility] Work Phone: Basophil percentageon 2021 Basophils/100 WBC (Bld) 0.6 % 0-1 [facility] Work Phone: Chloride [Moles/Vol] 105 mmol/L 98-107 [facility] Work Phone: Eosinophils/100 WBC (Bld) 3.9 % 0-5 [facility] Work Phone: Glucose [Mass/Vol] 185 mg/dL 74-106 [facility] Work Phone: Comment on above: Fasting Glucose resu lt greater than or equal to 126 mg/dL suggests DIABETES MELLITUS per A.D.A. criteria. Neutrophils (Bld) [#/Vol] 3.2 10*3/uL 2.0-7.7 [facility] Work Phone: Neutrophils/100 WBC (Bld) 62.1 % 47-70 [facility] Work Phone: Potassium [Moles/Vol] 4.4 mmol/L 3.5-5.1 [facility] Work Phone: Sodium [Moles/Vol] 135 mmol/L 136-145 [facility] Work Phone: WBC (Bld) [#/Vol] 5.1 10*3/uL 4.4-11.0 [facility] Work Phone: Blood erythrocytes count (nu mber/volume)on 07-26-2021 RBC (Bld) [#/Vol] 4.66 10*6/uL 4.2-5.4 [facility] Work Phone: Blood hemoglobin measurement (mass/volume)on 07-26-2021 Hemoglobin (Bld) [Mass/Vol] 13.8 g/dL 12.0-15.0 [facility] Work Phone: Blood lymphocytes/100 leukoc yteson 07-26-2021 Lymphocytes/100 WBC (Bld) 24.5 % 19-41 [facility] Work Phone: Blood monocytes/100 leukocyt eson 07-26-2021 Monocytes/100 WBC (Bld) 8.5 % 0-10 [facility] Work Phone: Blood platelet mean volumeon 07-26-2021 Platelet mean volume (Bld) [Entitic vol] 10.1 fL 6.2-12.0 [facility] Work Phone: Determination of erythrocyte mean corpuscular volume (MCV)on 07-26-2021 MCV (RBC) [Entitic vol] 88.2 fL 81-99 [facility] Work Phone: Hematocrit Auto (Bld) [Volum e fraction]on 07-26-2021 Hematocrit (Bld) [Volume fraction] 41.1 % 37-47 [facility] Work Phone: Laboratory - Chemistry and C hemistry - challengeon 07-26-2021 CO2 [Moles/Vol] 24.0 mmol/L 21.0-32.0 [facility] Work Phone: Urea nitrogen/Creatinine [Mass ratio] 17.3 mg/mg 10-20 [facility] Work Phone: Laboratory - Hematology and Cell countson 07-26-2021 Erythrocyte distribution width (RBC) [Entitic vol] 46.8 fL 35.1-43.9 [facility] Work Phone: Erythrocyte distribution width (RBC) [Ratio] 14.6 % 11.6-14.6 [facility] Work Phone: Immature granulocytes/100 WBC (Bld) 0.400 % 0.0-0.9 [facility] Work Phone: Comment on above: IG% - Immature Granu locytes (promyelocytes, myelocytes and metamyelocytes) > 1% indicates that a LEFT SHIFT is Present. MCH (RBC) [Entitic mass] 29.6 pg 27.0-32.0 [facility] Work Phone: Nucleated RBC/100 WBC (Bld) [Ratio] 0 % 0-5 [facility] Work Phone: MCHC Auto (RBC) [Mass/Vol]on 07-26-2021 MCHC (RBC) [Mass/Vol] 33.6 g/dL 32-36 [facility] Work Phone: No Panel Informationon 07-26 Estimated Creatinine Clearance Calc 55.69 ml/min [facility] Work Phone: Estimated GFR (MDRD) Amer 84 mL/min >60 [facility] Work Phone: Comment on above: GFR Calc Estimated GFR (MDRD) Non-Af Amer 69 mL/min >60 [facility] Work Phone: Comment on above: Non- GFR Calc Platelets bldon 07-26-2021 Platelets (Bld) [#/Vol] 151 10*3/uL 150-450 [facility] Work Phone: Serum or plasma calcium kim urement (mass/volume)on 07-26-2021 Calcium [Mass/Vol] 9.2 mg/dL 8.5-10.1 [facility] Work Phone: Serum or plasma creatinine m easurement (mass/volume)on 07-26-2021 Creatinine [Mass/Vol] 0.87 mg/dL 0.55-1.02 [facility] Work Phone: Comment on above: The validity of the calculated GFR & GFRAA in patients over 70 years has not been determined. Clinical correlation is essential. Serum or plasma urea nitroge n measurement (mass/volume)on 07-26-2021 Urea nitrogen [Mass/Vol] 15 mg/dL 7-18 [facility] Work Phone: Thin prep Papanicolaou smear with manual screeningon 07-26-2021 Thin prep Papanicolaou smear with manual screening 6 5-15 [facility] Work Phone: Absolute lymphocyte counton 07-14-2021 Lymphocytes Auto (Unsp spec) [#/Vol] 1.32 10*3/uL 0.83-4.51 [facility] Work Phone: Basophil percentageon 2021 Basophils/100 WBC (Bld) 0.6 % 0-1 [facility] Work Phone: Bilirubin [Mass/Vol] 0.40 mg/dL 0.20-1.00 [facility] Work Phone: Comment on above: For patients on eltr ombopag therapy, use of Dimension [place] TBIL is not recommended. Chloride [Moles/Vol] 104 mmol/L 98-107 [facility] Work Phone: Eosinophils/100 WBC (Bld) 3.1 % 0-5 [facility] Work Phone: Glucose [Mass/Vol] 201 mg/dL 74-106 [facility] Work Phone: Comment on above: Glucose result great er than or equal to 200 mg/dLsuggests DIABETES MELLITUS per A.D.A. criteria. Neutrophils (Bld) [#/Vol] 3.0 10*3/uL 2.0-7.7 [facility] Work Phone: Neutrophils/100 WBC (Bld) 59.5 % 47-70 [facility] Work Phone: Potassium [Moles/Vol] 4.2 mmol/L 3.5-5.1 [facility] Work Phone: Protein [Mass/Vol] 7.6 g/dL 6.4-8.2 [facility] Work Phone: Sodium [Moles/Vol] 136 mmol/L 136-145 [facility] Work Phone: WBC (Bld) [#/Vol] 5.1 10*3/uL 4.4-11.0 [facility] Work Phone: Blood erythrocytes count (nu mber/volume)on 07-14-2021 RBC (Bld) [#/Vol] 4.23 10*6/uL 4.2-5.4 [facility] Work Phone: Blood hemoglobin measurement (mass/volume)on 07-14-2021 Hemoglobin (Bld) [Mass/Vol] 12.9 g/dL 12.0-15.0 [facility] Work Phone: Blood lymphocytes/100 leukoc yteson 07-14-2021 Lymphocytes/100 WBC (Bld) 26.0 % 19-41 [facility] Work Phone: Blood monocytes/100 leukocyt eson 07-14-2021 Monocytes/100 WBC (Bld) 10.4 % 0-10 [facility] Work Phone: Blood platelet mean volumeon 07-14-2021 Platelet mean volume (Bld) [Entitic vol] 10.9 fL 6.2-12.0 [facility] Work Phone: Determination of erythrocyte mean corpuscular volume (MCV)on 07-14-2021 MCV (RBC) [Entitic vol] 88.9 fL 81-99 [facility] Work Phone: Hematocrit Auto (Bld) [Volum e fraction]on 07-14-2021 Hematocrit (Bld) [Volume fraction] 37.6 % 37-47 [facility] Work Phone: Laboratory - Chemistry and C hemistry - challengeon 07-14-2021 ALP [Catalytic activity/Vol] 144 U/L 45-117 [facility] Work Phone: ALT [Catalytic activity/Vol] 28 U/L 13-56 [facility] Work Phone: CO2 [Moles/Vol] 24.0 mmol/L 21.0-32.0 [facility] Work Phone: Globulin (S) [Mass/Vol] 4.7 g/dL 2.2-4.2 [facility] Work Phone: Urea nitrogen/Creatinine [Mass ratio] 18.0 mg/mg 10-20 [facility] Work Phone: Laboratory - Hematology and Cell countson 07-14-2021 Erythrocyte distribution width (RBC) [Entitic vol] 46.7 fL 35.1-43.9 [facility] Work Phone: Erythrocyte distribution width (RBC) [Ratio] 14.5 % 11.6-14.6 [facility] Work Phone: Immature granulocytes/100 WBC (Bld) 0.400 % 0.0-0.9 [facility] Work Phone: Comment on above: IG% - Immature Granu locytes (promyelocytes, myelocytes and metamyelocytes) > 1% indicates that a LEFT SHIFT is Present. MCH (RBC) [Entitic mass] 30.5 pg 27.0-32.0 [facility] Work Phone: Nucleated RBC/100 WBC (Bld) [Ratio] 0 % 0-5 [facility] Work Phone: MCHC Auto (RBC) [Mass/Vol]on 07-14-2021 MCHC (RBC) [Mass/Vol] 34.3 g/dL 32-36 [facility] Work Phone: No Panel Informationon 07-14 Estimated GFR (MDRD) Amer 95 mL/min >60 [facility] Work Phone: Comment on above: GFR Calc Estimated GFR (MDRD) Non-Af Amer 78 mL/min >60 [facility] Work Phone: Comment on above: Non- GFR Calc Vitamin D 25-Hydroxy 79.0 ng/mL [facility] Work Phone: Comment on above: Vitamin D 25(OH) Sta tus Range Deficiency <20 ng/mL (50nmol/L) Insufficiency 20 - 30 ng/mL (50 - 75 nmol/L) Sufficiency 30 - 100 ng/mL (75 - 250 nmol/L) Toxicity >100 ng/mL (>250 nmol/L) Platelets bldon 07-14-2021 Platelets (Bld) [#/Vol] 170 10*3/uL 150-450 [facility] Work Phone: Serum or plasma albumin kim urement (mass/volume)on 07-14-2021 Albumin [Mass/Vol] 2.9 g/dL 3.2-5.0 [facility] Work Phone: Serum or plasma albumin/glob ulin mass ratioon 07-14-2021 Albumin/Globulin [Mass ratio] 0.6 {ratio} 0.9-2.4 [facility] Work Phone: Serum or plasma calcium kim urement (mass/volume)on 07-14-2021 Calcium [Mass/Vol] 8.7 mg/dL 8.5-10.1 [facility] Work Phone: Serum or plasma creatinine m easurement (mass/volume)on 07-14-2021 Creatinine [Mass/Vol] 0.78 mg/dL 0.55-1.02 [facility] Work Phone: Comment on above: The validity of the calculated GFR & GFRAA in patients over 70 years has not been determined. Clinical correlation is essential. Serum or plasma urea nitroge n measurement (mass/volume)on 07-14-2021 Urea nitrogen [Mass/Vol] 14 mg/dL 7-18 [facility] Work Phone: Thin prep Papanicolaou smear with manual screeningon 07-14-2021 Thin prep Papanicolaou smear with manual screening 26 U/L 15-37 [facility] Work Phone: Thin prep Papanicolaou smear with manual screening 8 5-15 [facility] Work Phone: Absolute lymphocyte counton 07-08-2021 Lymphocytes Auto (Unsp spec) [#/Vol] 1.26 10*3/uL 0.83-4.51 [facility] Work Phone: Basophil percentageon 2021 Basophils/100 WBC (Bld) 0.6 % 0-1 [facility] Work Phone: Bilirubin [Mass/Vol] 0.40 mg/dL 0.20-1.00 [facility] Work Phone: Comment on above: For patients on eltr ombopag therapy, use of Dim[place] TBIL is not recommended. Chloride [Moles/Vol] 104 mmol/L 98-107 [facility] Work Phone: Eosinophils/100 WBC (Bld) 4.5 % 0-5 [facility] Work Phone: Glucose [Mass/Vol] 181 mg/dL 74-106 [facility] Work Phone: Comment on above: Fasting Glucose resu lt greater than or equal to 126 mg/dL suggests DIABETES MELLITUS per A.D.A. criteria. Neutrophils (Bld) [#/Vol] 2.8 10*3/uL 2.0-7.7 [facility] Work Phone: Neutrophils/100 WBC (Bld) 58.0 % 47-70 [facility] Work Phone: Potassium [Moles/Vol] 4.5 mmol/L 3.5-5.1 [facility] Work Phone: Protein [Mass/Vol] 7.5 g/dL 6.4-8.2 [facility] Work Phone: Sodium [Moles/Vol] 136 mmol/L 136-145 [facility] Work Phone: WBC (Bld) [#/Vol] 4.9 10*3/uL 4.4-11.0 [facility] Work Phone: Blood erythrocytes count (nu mber/volume)on 07-08-2021 RBC (Bld) [#/Vol] 4.16 10*6/uL 4.2-5.4 [facility] Work Phone: Blood hemoglobin measurement (mass/volume)on 07-08-2021 Hemoglobin (Bld) [Mass/Vol] 12.2 g/dL 12.0-15.0 [facility] Work Phone: Blood lymphocytes/100 leukoc yteson 07-08-2021 Lymphocytes/100 WBC (Bld) 25.7 % 19-41 [facility] Work Phone: Blood monocytes/100 leukocyt eson 07-08-2021 Monocytes/100 WBC (Bld) 10.8 % 0-10 [facility] Work Phone: Blood platelet mean volumeon 07-08-2021 Platelet mean volume (Bld) [Entitic vol] 11.2 fL 6.2-12.0 [facility] Work Phone: Determination of erythrocyte mean corpuscular volume (MCV)on 07-08-2021 MCV (RBC) [Entitic vol] 89.2 fL 81-99 [facility] Work Phone: Hematocrit Auto (Bld) [Volum e fraction]on 07-08-2021 Hematocrit (Bld) [Volume fraction] 37.1 % 37-47 [facility] Work Phone: Laboratory - Chemistry and C hemistry - challengeon 07-08-2021 ALP [Catalytic activity/Vol] 131 U/L 45-117 [facility] Work Phone: ALT [Catalytic activity/Vol] 32 U/L 13-56 [facility] Work Phone: CO2 [Moles/Vol] 23.0 mmol/L 21.0-32.0 [facility] Work Phone: Globulin (S) [Mass/Vol] 4.6 g/dL 2.2-4.2 [facility] Work Phone: Urea nitrogen/Creatinine [Mass ratio] 18.5 mg/mg 10-20 [facility] Work Phone: Laboratory - Hematology and Cell countson 07-08-2021 Erythrocyte distribution width (RBC) [Entitic vol] 47.6 fL 35.1-43.9 [facility] Work Phone: Erythrocyte distribution width (RBC) [Ratio] 14.6 % 11.6-14.6 [facility] Work Phone: Immature granulocytes/100 WBC (Bld) 0.400 % 0.0-0.9 [facility] Work Phone: Comment on above: IG% - Immature Granu locytes (promyelocytes, myelocytes and metamyelocytes) > 1% indicates that a LEFT SHIFT is Present. MCH (RBC) [Entitic mass] 29.3 pg 27.0-32.0 [facility] Work Phone: Nucleated RBC/100 WBC (Bld) [Ratio] 0 % 0-5 [facility] Work Phone: MCHC Auto (RBC) [Mass/Vol]on 07-08-2021 MCHC (RBC) [Mass/Vol] 32.9 g/dL 32-36 [facility] Work Phone: No Panel Informationon 07-08 Estimated GFR (MDRD) Amer 84 mL/min >60 [facility] Work Phone: Comment on above: GFR Calc Estimated GFR (MDRD) Non-Af Amer 69 mL/min >60 [facility] Work Phone: Comment on above: Non- GFR Calc Vitamin D 25-Hydroxy 88.3 ng/mL [facility] Work Phone: Comment on above: Vitamin D 25(OH) Sta tus Range Deficiency <20 ng/mL (50nmol/L) Insufficiency 20 - 30 ng/mL (50 - 75 nmol/L) Sufficiency 30 - 100 ng/mL (75 - 250 nmol/L) Toxicity >100 ng/mL (>250 nmol/L) Platelets bldon 07-08-2021 Platelets (Bld) [#/Vol] 159 10*3/uL 150-450 [facility] Work Phone: Serum or plasma albumin kim urement (mass/volume)on 07-08-2021 Albumin [Mass/Vol] 2.9 g/dL 3.2-5.0 [facility] Work Phone: Serum or plasma albumin/glob ulin mass ratioon 07-08-2021 Albumin/Globulin [Mass ratio] 0.6 {ratio} 0.9-2.4 [facility] Work Phone: Serum or plasma calcium kim urement (mass/volume)on 07-08-2021 Calcium [Mass/Vol] 9.0 mg/dL 8.5-10.1 [facility] Work Phone: Serum or plasma creatinine m easurement (mass/volume)on 07-08-2021 Creatinine [Mass/Vol] 0.87 mg/dL 0.55-1.02 [facility] Work Phone: Comment on above: The validity of the calculated GFR & GFRAA in patients over 70 years has not been determined. Clinical correlation is essential. Serum or plasma urea nitroge n measurement (mass/volume)on 07-08-2021 Urea nitrogen [Mass/Vol] 16 mg/dL 7-18 [facility] Work Phone: Thin prep Papanicolaou smear with manual screeningon 07-08-2021 Thin prep Papanicolaou smear with manual screening 32 U/L 15-37 [facility] Work Phone: Thin prep Papanicolaou smear with manual screening 9 5-15 [facility] Work Phone: No Panel Informationon 06-12 Vitamin D 25-Hydroxy 101.7 ng/mL [facility] Work Phone: Comment on above: Vitamin [...] Vitamin D test results. Office Visit: Diabetes community health 10-26-2016 Adolescent depression screening assessment Adolescent depression screening assessment Invalid Interpretation Code [facility] Work Phone: Documentation of current medications (procedure) Done Invalid Interpretation Code [facility] Work Phone: Fall risk assessment Fall risk assessment Invali d Interpretation Code [facility] Work Phone: Tobacco smoking status NHIS Never Invalid Interpretation Code [facility] Work Phone: Tobacco use [facility]PH[facility] Former smoker Invalid Interpretation Code [facility] Work Phone: Office Visit: Diabetes community health 11-05-2015 Breast Mammogram screening Normal Bilateral Invalid Interpretation Code [facility] Work Phone: Colonoscopy (procedure) Colonoscopy (procedure) Invalid Interpretation Code [facility] Work Phone: Culture, urine Bacteria identified Cx Nom (U) Negative [facility] Work Phone: Bacteria identified Cx Nom (U) Escherichia coli [facility] Work Phone: Laboratory - Microbiology an d Antimicrobial susceptibility Bacteria identified Cx Nom (Bld) Negative [facility] Work Phone: No Panel Information SARS-CoV-2 & FLU Antigen (Rapid) [facility] Work Phone: Vital Signs Date Time Vital Sign Value Performing Clinician Facility 10-11-2024 07:00-0400 SaO2% (BldA) [Mass fraction] 95 % Dr. Shayna Malhotra MD Work Phone: [facility] 10-11-2024 06:49-0400 Body temperature 97.6 [degF] Dr. Shayna Malhotra MD Work Phone: [facility] 10-11-2024 06:49-0400 Diastolic blood pressure 76 mm[Hg] Dr. Shayna Malhotra MD Work Phone: [facility] 10-11-2024 06:49-0400 Heart rate 106 /min Dr. Shayna Malhotra MD Work Phone: [facility] 10-11-2024 06:49-0400 Respiratory rate 20 /min Dr. Shayna Malhotra MD Work Phone: [facility] 10-11-2024 06:49-0400 Systolic blood pressure 153 mm[Hg] Dr. Shayna Malhotra MD Work Phone: [facility] 10-11-2024 06:00-0400 Body mass index (BMI) [Ratio] 49.6 kg/m2 Dr. Shayna Malhotra MD Work Phone: [facility] 10-11-2024 06:00-0400 Body weight 135.[address] Shayna Malhotra MD Work Phone: [facility] 10-10-2024 14:58-0400 Body height 165.[address] Shayna Malhotra MD Work Phone: [facility] 10-09-2024 20:55-0400 Diastolic blood pressure 57 mm[Hg] Dr. Shayna Malhotra MD Work Phone: [facility] 10-09-2024 20:55-0400 Heart rate 102 /min Dr. Shayna Malhotra MD Work Phone: [facility] 10-09-2024 20:55-0400 Respiratory rate 20 /min Dr. Shayna Malhotra MD Work Phone: [facility] 10-09-2024 20:55-0400 SaO2% (BldA) [Mass fraction] 98 % Dr. Shayna Malhotra MD Work Phone: [facility] 10-09-2024 20:55-0400 Systolic blood pressure 121 mm[Hg] Dr. Shayna Malhotra MD Work Phone: [facility] 10-09-2024 16:55-0400 Body height 165.[address] Shayna Malhotra MD Work Phone: [facility] 10-09-2024 16:55-0400 Body mass index (BMI) [Ratio] 49.1 kg/m2 Dr. Shayna Malhotra MD Work Phone: [facility] 10-09-2024 16:55-0400 Body temperature 97.8 [degF] Dr. Shayna Malhotra MD Work Phone: [facility] 10-09-2024 16:55-0400 Body weight [address] Shayna Malhotra MD Work Phone: [facility] 07-04-2024 13:06-0500 Body mass index (BMI) [Ratio] 49.9 kg/m2 Dr. Shayna Malhotra MD Work Phone: [facility] 07-04-2024 13:06-0500 Body temperature 97.8 [degF] Dr. Shayna Malhotra MD Work Phone: [facility] 07-04-2024 13:06-0500 Body weight 136.[address] Shayna Malhotra MD Work Phone: [facility] 07-04-2024 13:06-0500 Diastolic blood pressure 80 mm[Hg] Dr. Shayna Malhotra MD Work Phone: [facility] 07-04-2024 13:06-0500 Heart rate 107 /min Dr. Shayna Malhotra MD Work Phone: [facility] 07-04-2024 13:06-0500 Respiratory rate 16 /min Dr. Shayna Malhotra MD Work Phone: [facility] 07-04-2024 13:06-0500 SaO2% (BldA) [Mass fraction] 94 % Dr. Shayna Malhotra MD Work Phone: [facility] 07-04-2024 13:06-0500 Systolic blood pressure 142 mm[Hg] Dr. Shayna Malhotra MD Work Phone: [facility] 01-09-2023 19:06-0400 Body temperature 99.5 [degF] Dr. Shayna Malhotra Work Phone: [facility] 01-09-2023 19:06-0400 Heart rate 115 /min Dr. Shayna Malhotra Work Phone: [facility] 01-09-2023 19:06-0400 Respiratory rate 16 /min Dr. Shayna Malhotra Work Phone: [facility] 01-09-2023 19:06-0400 SaO2% (BldA) [Mass fraction] 95 % Dr. Shayna Malhotra Work Phone: [facility] 01-09-2023 17:53-0400 Diastolic blood pressure 89 mm[Hg] Dr. Shayna Malhotra Work Phone: [facility] 01-09-2023 17:53-0400 Systolic blood pressure 166 mm[Hg] Dr. Shayna Malhotra Work Phone: [facility] 01-09-2023 17:15-0400 Body height 165.[address] Shayna Malhotra Work Phone: [facility] 01-09-2023 17:15-0400 Body mass index (BMI) [Ratio] 51 kg/m2 Dr. Shayna Malhotra Work Phone: [facility] 01-09-2023 17:15-0400 Body weight 139.[address] Shayna Malhotra Work Phone: [facility] 11-24-2022 13:42-0400 Body mass index (BMI) [Ratio] 51.4 kg/m2 Dr. Shayna Malhotra Work Phone: [facility] 11-24-2022 13:42-0400 Body temperature 97.9 [degF] Dr. Shayna Malhotra Work Phone: [facility] 11-24-2022 13:42-0400 Body weight 140.[address] Shayna Malhotra Work Phone: [facility] 11-24-2022 13:42-0400 Diastolic blood pressure 67 mm[Hg] Dr. Shayna Malhotra Work Phone: [facility] 11-24-2022 13:42-0400 Heart rate 112 /min Dr. Shayna Malhotra Work Phone: [facility] 11-24-2022 13:42-0400 Respiratory rate 20 /min Dr. Shayna Malhotra Work Phone: [facility] 11-24-2022 13:42-0400 SaO2% (BldA) [Mass fraction] 92 % Dr. Shayna Malhotra Work Phone: [facility] 11-24-2022 13:42-0400 Systolic blood pressure 125 mm[Hg] Dr. Shayna Malhotra Work Phone: [facility] 05-06-2022 16:07-0500 Body height 165.[address] Shayna Malhotra Work Phone: [facility] 05-06-2022 16:07-0500 Body mass index (BMI) [Ratio] 49.4 kg/m2 Dr. Shayna Malhotra Work Phone: [facility] 05-06-2022 16:07-0500 Body temperature 98.6 [degF] Dr. Shayna Malhotra Work Phone: [facility] 05-06-2022 16:07-0500 Body weight 134.[address] Shayna Malhotra Work Phone: [facility] 05-06-2022 16:07-0500 Diastolic blood pressure 91 mm[Hg] Dr. Shayna Malhotra Work Phone: [facility] 05-06-2022 16:07-0500 Heart rate 118 /min Dr. Shayna Malhotra Work Phone: [facility] 05-06-2022 16:07-0500 Respiratory rate 18 /min Dr. Shayna Malhotra Work Phone: [facility] 05-06-2022 16:07-0500 SaO2% (BldA) [Mass fraction] 96 % Dr. Shayna Malhotra Work Phone: [facility] 05-06-2022 16:07-0500 Systolic blood pressure 167 mm[Hg] Dr. Shayna Malhotra Work Phone: [facility] 11-24-2021 16:06-0400 Heart rate 100 /min Dr. Shayna Malhotra Work Phone: [facility] Work Phone: 11-24-2021 16:04-0400 Body temperature 98.4 [degF] Dr. Shayna Malhotra Work Phone: [facility] Work Phone: 11-24-2021 16:04-0400 Diastolic blood pressure 82 mm[Hg] Dr. Shayna Malhotra Work Phone: [facility] Work Phone: 11-24-2021 16:04-0400 Respiratory rate 17 /min Dr. Shayna Malhotra Work Phone: [facility] Work Phone: 11-24-2021 16:04-0400 SaO2% (BldA) [Mass fraction] 95 % Dr. Shayna Malhotra Work Phone: [facility] Work Phone: 11-24-2021 16:04-0400 Systolic blood pressure 147 mm[Hg] Dr. Shayna Malhotra Work Phone: [facility] Work Phone: 11-24-2021 08:43-0400 Body temperature 98 [degF] Dr. Shayna Malhotra Work Phone: [facility] Work Phone: 11-24-2021 08:43-0400 Diastolic blood pressure 61 mm[Hg] Dr. Shayna Malhotra Work Phone: [facility] Work Phone: 11-24-2021 08:43-0400 Heart rate 94 /min Dr. Shayna Malhotra Work Phone: [facility] Work Phone: 11-24-2021 08:43-0400 Respiratory rate 15 /min Dr. Shayna Malhotra Work Phone: [facility] Work Phone: 11-24-2021 08:43-0400 SaO2% (BldA) [Mass fraction] 95 % Dr. Shayna Malhotra Work Phone: [facility] Work Phone: 11-24-2021 08:43-0400 Systolic blood pressure 113 mm[Hg] Dr. Shayna Malhotra Work Phone: [facility] Work Phone: 11-24-2021 06:00-0400 Body weight 141.[address] Shayna Malhotra Work Phone: [facility] Work Phone: 11-23-2021 09:21-0400 Body height 165.[address] Shayna Malhotra Work Phone: [facility] Work Phone: 11-22-2021 17:49-0400 Body height 165.[address] Shayna Malhotra Work Phone: [facility] Work Phone: 11-22-2021 17:49-0400 Body mass index (BMI) [Ratio] 51.5 kg/m2 Dr. Shayna Malhotra Work Phone: [facility] Work Phone: 11-22-2021 17:49-0400 Body weight 140.[address] Shayna Malhotra Work Phone: [facility] Work Phone: 11-22-2021 17:05-0400 Body temperature 98.9 [degF] Dr. Shayna Malhotra Work Phone: [facility] Work Phone: 11-22-2021 17:05-0400 Diastolic blood pressure 78 mm[Hg] Dr. Shayna Malhotra Work Phone: [facility] Work Phone: 11-22-2021 17:05-0400 Heart rate 120 /min Dr. Shayna Malhotra Work Phone: [facility] Work Phone: 11-22-2021 17:05-0400 Respiratory rate 28 /min Dr. Shayna Malhotra Work Phone: [facility] Work Phone: 11-22-2021 17:05-0400 SaO2% (BldA) [Mass fraction] 96 % Dr. Shayna Malhotra Work Phone: [facility] Work Phone: 11-22-2021 17:05-0400 Systolic blood pressure 119 mm[Hg] Dr. Shayna Malhotra Work Phone: [facility] Work Phone: 10-02-2021 12:46-0400 Body height 165.1 cm Jennifer Cuevas MD Work Phone: [facility] 10-02-2021 12:46-0400 Body temperature 97.39 [degF] Jennifer Cuevas MD Work Phone: [facility] 10-02-2021 12:46-0400 Body weight 136.53 kg Jennifer Cuevas MD Work Phone: [facility] 10-02-2021 12:46-0400 Diastolic blood pressure 85 mm[Hg] Jennifer Cuevas MD Work Phone: [facility] 10-02-2021 12:46-0400 Heart rate 103 /min Jennifer Cuevas MD Work Phone: [facility] 10-02-2021 12:46-0400 Respiratory rate 20 /min Jennifer Cuevas MD Work Phone: [facility] 10-02-2021 12:46-0400 SaO2% (BldA) [Mass fraction] 98 % Jennifer Cuevas MD Work Phone: [facility] 10-02-2021 12:46-0400 Systolic blood pressure 152 mm[Hg] Jennifer Cuevas MD Work Phone: [facility] 09-22-2021 09:30-0400 Body temperature 98.4 [degF] Dr. Shayna Malhotra Work Phone: [facility] Work Phone: 09-22-2021 09:30-0400 Diastolic blood pressure 87 mm[Hg] Dr. Sahyna Malhotra Work Phone: [facility] Work Phone: 09-22-2021 09:30-0400 Heart rate 85 /min Dr. Shayna Malhotra Work Phone: [facility] Work Phone: 09-22-2021 09:30-0400 Respiratory rate 17 /min Dr. Shayna Malhotra Work Phone: [facility] Work Phone: 09-22-2021 09:30-0400 SaO2% (BldA) [Mass fraction] 94 % Dr. Shayna Malhotra Work Phone: [facility] Work Phone: 09-22-2021 09:30-0400 Systolic blood pressure 151 mm[Hg] Dr. Shayna Malhotra Work Phone: [facility] Work Phone: 09-20-2021 13:57-0400 Body height 166.[address] Shayna Malhotra Work Phone: [facility] Work Phone: 09-20-2021 13:57-0400 Body weight 137.[address] Shayna Malhotra Work Phone: [facility] Work Phone: 09-20-2021 12:38-0400 Body mass index (BMI) [Ratio] 49.6 kg/m2 Dr. Shayna Malhotra Work Phone: [facility] Work Phone: 09-20-2021 12:06-0400 Body temperature 98 [degF] Dr. Shayna Malhotra Work Phone: [facility] Work Phone: 09-20-2021 12:06-0400 Diastolic blood pressure 71 mm[Hg] Dr. Shayna Malhotra Work Phone: [facility] Work Phone: 09-20-2021 12:06-0400 Heart rate 101 /min Dr. Shayna Malhotra Work Phone: [facility] Work Phone: 09-20-2021 12:06-0400 Respiratory rate 16 /min Dr. Shayna Malhotra Work Phone: [facility] Work Phone: 09-20-2021 12:06-0400 SaO2% (BldA) [Mass fraction] 97 % Dr. Shayna Malhotra Work Phone: [facility] Work Phone: 09-20-2021 12:06-0400 Systolic blood pressure 163 mm[Hg] Dr. Shayna Malhotra Work Phone: [facility] Work Phone: 09-20-2021 07:17-0400 Body height 165.[address] Shayna Malhotra Work Phone: [facility] Work Phone: 09-20-2021 07:17-0400 Body mass index (BMI) [Ratio] 52.5 kg/m2 Dr. Shayna Malhotra Work Phone: [facility] Work Phone: 09-20-2021 07:17-0400 Body weight 143.[address] Shayna Malhotra Work Phone: [facility] Work Phone: 09-01-2021 15:00-0400 Body height 165.1 cm Pst 1 [facility] 09-01-2021 15:00-0400 Body temperature 97.5 [degF] Pst 1 [facility] 09-01-2021 15:00-0400 Body weight 128.82 kg Pst 1 [facility] 09-01-2021 15:00-0400 Diastolic blood pressure 71 mm[Hg] Pst 1 [facility] 09-01-2021 15:00-0400 Heart rate 97 /min Pst 1 [facility] 09-01-2021 15:00-0400 Respiratory rate 18 /min Pst 1 [facility] 09-01-2021 15:00-0400 SaO2% (BldA) [Mass fraction] 97 % Pst 1 [facility] 09-01-2021 15:00-0400 Systolic blood pressure 127 mm[Hg] Pst 1 [facility] 08-11-2021 09:26-0500 Body mass index (BMI) [Ratio] 50.9 kg/m2 Dr. Shayna Malhotra Work Phone: [facility] Work Phone: 08-11-2021 09:26-0500 Body temperature 98.2 [degF] Dr. Shayna Malhotra Work Phone: [facility] Work Phone: 08-11-2021 09:26-0500 Body weight 138.[address] Shayna Malhotra Work Phone: [facility] Work Phone: 08-11-2021 09:26-0500 Diastolic blood pressure 83 mm[Hg] Dr. Shayna Malhotra Work Phone: [facility] Work Phone: 08-11-2021 09:26-0500 Heart rate 114 /min Dr. Shayna Malhotra Work Phone: [facility] Work Phone: 08-11-2021 09:26-0500 Respiratory rate 16 /min Dr. Shayna Malhotra Work Phone: [facility] Work Phone: 08-11-2021 09:26-0500 SaO2% (BldA) [Mass fraction] 96 % Dr. Shayna Malhotra Work Phone: [facility] Work Phone: 08-11-2021 09:26-0500 Systolic blood pressure 151 mm[Hg] Dr. Shayna Malhotra Work Phone: [facility] Work Phone: 08-11-2021 08:26-0500 Body mass index (BMI) [Ratio] 50.9 kg/m2 Dr. Shayna Malhotra Work Phone: [facility] Work Phone: 08-11-2021 08:26-0500 Body temperature 98.2 [degF] Dr. Shayna Malhotra Work Phone: [facility] Work Phone: 08-11-2021 08:26-0500 Body weight 138.[address] Shayna Malhotra Work Phone: [facility] Work Phone: 08-11-2021 08:26-0500 Diastolic blood pressure 83 mm[Hg] Dr. Shayna Malhotra Work Phone: [facility] Work Phone: 08-11-2021 08:26-0500 Heart rate 114 /min Dr. Shayna Malhotra Work Phone: [facility] Work Phone: 08-11-2021 08:26-0500 Respiratory rate 16 /min Dr. Shayna Malhotra Work Phone: [facility] Work Phone: 08-11-2021 08:26-0500 SaO2% (BldA) [Mass fraction] 96 % Dr. Shayna Malhotra Work Phone: [facility] Work Phone: 08-11-2021 08:26-0500 Systolic blood pressure 151 mm[Hg] Dr. Shayna Malhotra Work Phone: [facility] Work Phone: 07-30-2021 14:36-0500 Body mass index (BMI) [Ratio] 50.8 kg/m2 Dr. Shayna Malhotra Work Phone: [facility] Work Phone: 07-30-2021 14:36-0500 Body temperature 98.6 [degF] Dr. Shayna Malhotra Work Phone: [facility] Work Phone: 07-30-2021 14:36-0500 Body weight 138.[address] Shayna Malhotra Work Phone: [facility] Work Phone: 07-30-2021 14:36-0500 Heart rate 106 /min Dr. Shayna Malhotra Work Phone: [facility] Work Phone: 07-30-2021 14:36-0500 Respiratory rate 15 /min Dr. Shayna Malhotra Work Phone: [facility] Work Phone: 07-30-2021 13:36-0500 Body mass index (BMI) [Ratio] 50.8 kg/m2 Dr. Shayna Malhotra Work Phone: [facility] Work Phone: 07-30-2021 13:36-0500 Body temperature 98.6 [degF] Dr. Shayna Malhotra Work Phone: [facility] Work Phone: 07-30-2021 13:36-0500 Body weight 138.[address] Shayna Malhotra Work Phone: [facility] Work Phone: 07-30-2021 13:36-0500 Heart rate 106 /min Dr. Shayna Malhotra Work Phone: [facility] Work Phone: 07-30-2021 13:36-0500 Respiratory rate 15 /min Dr. Shayna Malhotra Work Phone: [facility] Work Phone: 07-26-2021 12:28-0500 Diastolic blood pressure 72 mm[Hg] Dr. Shayna Malhotra Work Phone: [facility] Work Phone: 07-26-2021 12:28-0500 Heart rate 98 /min Dr. Shayna Malhotra Work Phone: [facility] Work Phone: 07-26-2021 12:28-0500 Respiratory rate 23 /min Dr. Shayna Malhotra Work Phone: [facility] Work Phone: 07-26-2021 12:28-0500 SaO2% (BldA) [Mass fraction] 99 % Dr. Shayna Malhotra Work Phone: [facility] Work Phone: 07-26-2021 12:28-0500 Systolic blood pressure 140 mm[Hg] Dr. Shayna Malhotra Work Phone: [facility] Work Phone: 07-26-2021 11:28-0500 Diastolic blood pressure 72 mm[Hg] Dr. Shayna Malhotra Work Phone: [facility] Work Phone: 07-26-2021 11:28-0500 Heart rate 98 /min Dr. Shayna Malhotra Work Phone: [facility] Work Phone: 07-26-2021 11:28-0500 Respiratory rate 23 /min Dr. Shayna Malhotra Work Phone: [facility] Work Phone: 07-26-2021 11:28-0500 SaO2% (BldA) [Mass fraction] 99 % Dr. Shayna Malhotra Work Phone: [facility] Work Phone: 07-26-2021 11:28-0500 Systolic blood pressure 140 mm[Hg] Dr. Shayna Malhotra Work Phone: [facility] Work Phone: 07-26-2021 09:16-0500 Body mass index (BMI) [Ratio] 52.2 kg/m2 Dr. Shayna Malhotra Work Phone: [facility] Work Phone: 07-26-2021 09:16-0500 Body temperature 97.2 [degF] Dr. Shayna Malhotra Work Phone: [facility] Work Phone: 07-26-2021 09:16-0500 Body weight 142.[address] Shayna Malhotra Work Phone: [facility] Work Phone: 07-26-2021 08:16-0500 Body mass index (BMI) [Ratio] 52.2 kg/m2 Dr. Shayna Malhotra Work Phone: [facility] Work Phone: 07-26-2021 08:16-0500 Body temperature 97.2 [degF] Dr. Shayna Malhotra Work Phone: [facility] Work Phone: 07-26-2021 08:16-0500 Body weight 142.[address] Shayna Malhotra Work Phone: [facility] Work Phone: 10-26-2016 15:36-0400 BMI (Body Mass Index) 41.6 kg/m2 Sena Cox NP [facility] Work Phone: 10-26-2016 15:36-0400 BP Diastolic 97 mm[Hg] Sena Cox NP [facility] Work Phone: 10-26-2016 15:36-0400 BP Systolic 155 mm[Hg] Sena Cox NP [facility] Work Phone: 10-26-2016 15:36-0400 BSA (Body Surface Area) 2.12 m2 Sena Cox NP [facility] Work Phone: 10-26-2016 15:36-0400 Height 162.56 cm Sena Cox NP [facility] Work Phone: 10-26-2016 15:36-0400 Pulse (Heart Rate) 101 /min [facility] Work Phone: 10-26-2016 15:36-0400 Pulse Oximetry 97 % Sena Cox NP [facility] Work Phone: 10-26-2016 15:36-0400 Respiratory Rate 16 /min [facility] Work Phone: 10-26-2016 15:36-0400 Weight 109.95 kg Sena Cox PEDIATRIC NEUROLOGIST [facility] Work Phone: Encounters Encounter Date Encounter Type Care Provider Facility Start: 03-20-2025 ambulatory Shaynadesi Malhotra Facility :[facility] Start: 01-21-2025 ambulatory Shayna Malhotra Facility :[facility] Start: 01-21-[address] Malathi Tomas MD -[facility] Work Phone: Start: 12-04-2024 End: 12-04-[address] Shayna Malhotra MD Work Phone: -[facility] Start: 12-04-2024 End: 12-04-[address] Malathi Tomas MD -[facility] Start: 12-04-2024 End: 12-04-2024 ambulatory Shayna Malhotra Facility:[facility] Start: 11-26-2024 ambulatory Malathi ROSA Facili ty:[facility] Start: 11-26-[address] Malathi Tomas MD -[facility] Start: 11-07-2024 [facility] Start: 11-01-2024 ambulatory [facility] Start: 10-30-2024 ambulatory Shayna Malhotra Facility :[facility] Start: 10-25-2024 [facility] Start: 10-11-2024 End: 10-11-2024 ambulatory Shea Lele Facility:[facility] Start: 10-10-2024 Non-patient / Non-visit Dr. Tyrell Page MD -[facility] Work Phone: Start: 10-09-2024 ambulatory Missael Whitfield ty:[facility] Start: 10-09-2024 End: 10-11-2024 Evaluation and management of inpatient Dr. Missael Hernandez DO -[facility] Work Phone: Start: 10-09-2024 Registered Referred Shayna Resendez [facility] Work Phone: Start: 10-08-2024 End: 10-09-2024 ambulatory Shayna ROSA Facility:[facility] Start: 07-09-2024 ambulatory Shayna ROSA Faci lity:[facility] Start: 07-09-2024 Registered Referred Shayna Resendez [facility] Work Phone: Start: 07-04-2024 End: 07-04-[address] Shayna Malhotra MD -[facility] Work Phone: Start: 07-04-2024 End: 07-04-2024 ambulatory Shayna Malhotra Facility:[facility] Start: 06-22-2024 ambulatory Shaynadesi Malhotra Facility :[facility] Start: 05-28-2024 End: 05-28-2024 ambulatory Shayna Malhotra Facility:[facility] Start: 04-09-2024 End: 04-09-2024 ambulatory Shayna ROSA Facility:[facility] Start: 07-08-2023 End: 07-08-2023 ambulatory [facility] Work Phone: Start: 07-08-2023 End: 07-08-2023 Departed Referred [facility] Work Phone: Start: 04-08-2023 End: 04-08-2023 Departed Referred [facility] Work Phone: Start: 01-09-2023 End: 01-09-2023 Emergency department patient visit Dr. Shayna Malhotra Work Phone: [facility] Work Phone: Start: 11-24-2022 End: 11-24-[address] Shayna Malhotra Work Phone: [facility] Work Phone: Start: 10-13-2022 End: 10-13-[address] Shayna Malhotra Work Phone: [facility] Work Phone: Start: 08-12-2022 End: 08-12-[address] Shayna Malhotra Work Phone: [facility] Work Phone: Start: 08-12-2022 End: 08-12-[address] Shayna Malhotra Work Phone: [facility] Start: 07-13-2022 End: 07-13-[address] Shayna Malhotra Work Phone: [facility] Work Phone: Start: 07-13-2022 End: 07-13-[address] Shayna Malhotra Work Phone: [facility] Start: 06-08-2022 End: 06-08-[address] Shayna Malhotra Work Phone: [facility] Work Phone: Start: 06-08-2022 End: 06-08-[address] Shayna Malhotra Work Phone: [facility] Start: 05-06-2022 End: 05-06-[address] Shayna Malhotra Work Phone: [facility] Start: 04-13-2022 End: 04-13-2022 ambulatory [facility] Work Phone: Start: 04-13-2022 End: 04-13-2022 Departed Referred [facility] Start: 01-01-2022 End: 01-01-[address] Shayna Malhotra Work Phone: [place] [phone] Start: 12-11-[address] Shayna Malhotra Work Phone: [place] [phone] Start: 12-01-[address] Shayna Malhotra Work Phone: [facility] 100/200 Start: 11-27-[address] Shayna Malhotra Work Phone: [facility] 100/200 Start: 11-24-2021 Non-patient / Non-visit Dr. Maryanne Malhotra Work Phone: [facility] Start: 11-23-2021 Non-patient / Non-visit Dr. Maryanne Malhotra Work Phone: [facility] Start: 11-23-2021 End: 11-24-2021 Non-patient / Non-visit Dr. Shayna Malhotra Work Phone: [facility] Start: 11-22-2021 Non-patient / Non-visit Dr. Maryanne Malhotra Work Phone: [facility] Start: 11-22-2021 End: 11-24-2021 Evaluation and management of inpatient Dr. Shayna Malhotra Work Phone: [facility] Start: 10-27-2021 End: 10-27-[address] Shayna Malhotra Work Phone: [facility] Start: 10-13-2021 End: 10-13-[address] Shayna Malhotra Work Phone: [facility] Start: 10-13-[address] Shayna Malhotra Work Phone: [facility] Start: 10-02-2021 End: 10-02-2021 ambulatory Jennifer Cuevas MD Work Phone: [facility] Gynecology Oncology Comment on above: Endometrial cancer ( HCC) (Primary Dx) Start: 10-02-2021 End: 10-02-2021 Patient encounter procedure Jennifer Cuevas MD Work Phone: [facility] Start: 09-22-2021 Non-patient / Non-visit Dr. Maryanne Malhotra Work Phone: [facility] Start: 09-21-2021 Telephone encounter Jennifer prasad MD Work Phone: [facility] Gynecology Oncology Comment on above: Appointment Cancelle d Start: 09-21-2021 Non-patient / Non-visit Dr. Maryanne Malhotra Work Phone: [facility] Start: 09-20-2021 Non-patient / Non-visit Dr. Maryanne Malhotra Work Phone: [facility] Start: 09-20-2021 End: 09-22-2021 Evaluation and management of inpatient Dr. Shayna Malhotra Work Phone: [facility] 3 Start: 09-10-2021 Telephone encounter Taniya Balderas APRN.CNP Work Phone: [facility] Gynecology Oncology Comment on above: Results Start: 09-10-2021 End: 09-10-[address] Shayna Malhotra Work Phone: [facility] Start: 09-10-[address] Shayna Malhotra Work Phone: [facility] Start: 09-09-2021 Telephone encounter Jennifer prasad MD Work Phone: [facility] Gynecology Oncology Comment on above: Patient Update Start: 09-01-2021 End: 09-01-2021 Admission to [address] Start: 09-01-2021 End: 09-01-2021 ambulatory Pst [...] encounter procedure Dr. Shay[facility]ra [facility] Start: 08-07-2021 End: 08-07-[address] [facility] Malhot[facility] Start: 07-30-[address] Shayna Malhotra Work Phone: [facility] Start: 07-30-2021 End: 07-30-[address] Shayna Malhotra Work Phone: [facility] Start: 07-26-2021 End: 07-26-2021 Emergency department patient visit Dr. Shayna Malhotra Work Phone: [facility] Start: 07-14-[address] Shayna Malhotra Work Phone: [facility] Start: 07-08-[address] Shayna Malhotra Work Phone: [facility] Start: 06-12-[address] Shayna Malhotra Work Phone: [facility] Procedures Date Procedure Procedure [...] Speci men Type: BLOOD SPECIMEN Ordering Facility: [facility] Address: [address] [place], [place] [id number] Performed By: #### T [id number] #### [facility] CLIA [id number] [address] Start: 08-11-2021 Plain chest X-ray Dr. [...] Activity Detail Author Start: 10-11-2024 Patient discharge [facility] Start: 10-10-2024 [facility] Start: 10-10-[address] [facility] Start: 10-10-2024 Patient referral to dietitian [facility] Start: 10-09-2024 Following clinical pathway protocol [facility] Start: 10-09-2024 Assessment of risk o f venous thromboembolism [facility] Start: 10-09-2024 Care regimes management [facility] Start: 10-09-2024 Incentive spirometry [facility] Start: 10-09-2024 Insertion of cathete r into peripheral vein [facility] Start: 10-09-2024 Measuring intake and output [facility] Start: 10-09-2024 Notification of physician [facility] Start: 10-09-2024 Oxygen therapy [facility] Start: 10-09-2024 Providing care accor ding to standard [facility] Start: 10-09-2024 Provision of activit y privileges [facility] Start: 10-09-2024 Referral to occupati onal therapist [facility] Start: 10-09-2024 Referral [facility] Start: 10-09-2024 Seizure precautions [facility] Start: 10-09-2024 End: 10-09-2024 [facility] Start: 10-09-2024 MR Lower extremity W O contrast [facility] Start: 10-09-2024 MRI of lower extremity Extremi ty Lower without Contra [facility] Start: 10-09-2024 Verification routine [facility] Start: 10-09-2024 Admission procedure [facility] Start: 10-09-2024 Hospital admission, emergency, from emergency room, medical nature [facility] Start: 10-09-2024 End: 10-10-2024 [facility] Start: 10-09-2024 Thyroid stimulating hormone measurement [facility] Start: 10-09-[address] [facility] Start: 10-09-2024 Bacteria identified in Urine by Culture Urine Culture [facility] Start: 10-09-2024 Urine culture [facility] Start: 10-09-[address] [facility] Start: 10-09-2024 Patient referral to dietitian [facility] Start: 09-07-2024 [facility]ABET[facility]CREEN [facility] Start: 07-04-2024 [facility] Work Phone: Start: 11-24-2022 Patient referral [facility] Work Phone: Start: 05-06-2022 Patient referral [facility] Work Phone: Start: 02-04-2022 Influenza vaccination INFLUENZ A (Season Ended) [facility] Start: 11-25-2021 [facility] Work Phone: Start: 11-24-2021 Patient discharge [facility] Work Phone: Start: 11-22-2021 Troponin I measurement [facility] Work Phone: Start: 11-22-2021 Verification routine [facility] Work Phone: Start: 11-22-2021 Patient referral to dietitian [facility] Work Phone: Start: 11-22-2021 Following clinical pathway protocol [facility] Work Phone: Start: 11-22-2021 Assessment of risk o f venous thromboembolism [facility] Work Phone: Start: 11-22-2021 Care regimes management [facility] Work Phone: Start: 11-22-2021 Catheterization of vein [facility] Work Phone: Start: 11-22-2021 Insertion of cathete r into peripheral vein [facility] Work Phone: Start: 11-22-2021 Measuring intake and output [facility] Work Phone: Start: 11-22-2021 Providing care accor ding to standard [facility] Work Phone: Start: 11-22-2021 Provision of activit y privileges [facility] Work Phone: Start: 11-22-2021 Referral to occupati onal therapist [facility] Work Phone: Start: 11-22-2021 Referral to service [facility] Work Phone: Start: 11-22-2021 [facility] Work Phone: Start: 11-22-2021 Viral nucleic acid assay [facility] Work Phone: Start: 11-22-2021 Admission procedure [facility] Work Phone: Start: 11-22-2021 [facility] Work Phone: Start: 11-22-2021 End: 11-23-2021 [facility] Work Phone: Start: 11-22-2021 End: 11-22-2021 Blood culture [facility] Work Phone: Start: 09-22-2021 Patient discharge [facility] Work Phone: Start: 09-20-2021 End: 09-21-2021 [facility] Work Phone: Start: 09-20-2021 Following clinical pathway protocol [facility] Work Phone: Start: 09-20-2021 Assessment of risk o f venous thromboembolism [facility] Work Phone: Start: 09-20-2021 Care regimes management [facility] Work Phone: Start: 09-20-2021 Elevation of affecte d extremity [facility] Work Phone: Start: 09-20-2021 Insertion of cathete r into peripheral vein [facility] Work Phone: Start: 09-20-2021 Notification of physician [facility] Work Phone: Start: 09-20-2021 Providing care accor ding to standard [facility] Work Phone: Start: 09-20-2021 Provision of activit y privileges [facility] Work Phone: Start: 09-20-2021 Referral to occupati onal therapist [facility] Work Phone: Start: 09-20-2021 Referral [facility] Work Phone: Start: 09-20-2021 Self-administration of medication [facility] Work Phone: Start: 09-20-2021 Admission procedure [facility] Work Phone: Start: 09-20-2021 Patient referral to dietitian [facility] Work Phone: Start: 09-01-2021 End: 11-01-2021 CBC panel - Blood by Automated count [facility] Work Phone: Comment on above: Expected: 09/01/2021 , Expires: 11/01/2021 Start: 09-01-2021 End: 11-01-2021 CONFIRM BLOOD TYPE [facility] Work Phone: Comment on above: Expected: 09/01/2021 , Expires: 11/01/2021 Start: 09-01-2021 End: 11-01-2021 TYPE AND SCREEN,30 DAY [facility] Work Phone: Comment on above: Expected: 09/01/2021 , Expires: 11/01/2021 Start: 07-26-2021 Referral to oncologist [facility] Work Phone: Start: 06-06-2021 ADVANCE DIRECTIVE DISCUSSION ADVANCE DIRECTIVE DISCUSSION [facility] Start: 02-09-2021 LIPID SCREEN LIPID SCREEN [facility] Start: 02-04-2021 Influenza vaccination INFLUENZA (#1) [facility] Start: 03-01-2019 DIABETES SCREEN DIABETES SCREEN [facility] Start: 2017 BONE DENSITY BONE DENSITY [facility] Start: 2017 PNEUMOVAX AGE 65 AND OVER WITH 5YR LOOKBACK (#1) PNEUMOVAX AGE 65 AND OVER WITH 5YR LOOKBACK (#1) [facility] Start: 02-09-2017 Adult depression screening assessment DEPRESSION SCREENING [facility] Start: 02-09-2017 Mammography MAMMOGRAM [facility] Start: 12-09-2016 End: 12-09-2016 Appointment [facility] Work Phone: Start: 10-26-2016 End: 10-26-2016 Appointment Appointment [facility] Work Phone: Start: 10-26-2016 End: 10-26-2016 Appointment Appointment [facility] Work Phone: Start: 10-26-2016 End: 11-01-2016 *CMP Complete Metabolic Panel *CMP Complete Metabolic Panel [facility] Work Phone: Start: 10-26-2016 End: 11-01-2016 *Microalbumin, Creatine Ratio, rand urine *Microalbumin, Creatine Ratio, rand urine [facility] Work Phone: Start: 10-26-2016 End: 11-01-2016 HbA1c *HgA1C [facility] Work Phone: Start: 10-26-2016 End: 11-01-2016 Lipid panel [AGGREGATE] *Lipid Profile [facility] Work Phone: Start: 09-05-2011 PNEUMOCOCCAL: 65+ (2 - PCV) PNEUMOCOCCAL: 65+ (2 - PCV) [facility] Start: 2002 SHINGRIX VACCINE (1 of 2) SHINGRIX VACCINE (1 of 2) [facility] Start: 1997 COLOGUARD (FIT-DNA) COLOGUARD (FIT-D NA) [facility] Start: 1997 Colonoscopy COLONOSCOPY [facility] Start: 1997 COLORECTAL CANCER SCREENING COLORECTAL CANCER SCREENING [facility] Start: [address] COLONOGRAPHY [facility] Start: 1997 FECAL OCCULT BLOOD FECAL OCCULT BLOO D [facility] Start: 1997 SIGMOIDOSCOPY SIGMOIDOSCOPY [facility] Start: 12-28-1971 SHINGRIX VACCINE (1 of 2) SHINGRIX VACCINE (1 of 2) [facility] Start: 12-28-1971 Urine microalbumin profile DTAP,TDAP,TD (1 - Tdap) [facility] Start: 1957 COVID-19 VACCINE (#1) COVID-19 VACCI NE (#1) [facility] Start: 1957 COVID-19 VACCINE (1) COVID-19 VACCIN E (1) [facility] Amphetamines [Presen ce] in Urine by Screen method >1000 ng/mL [facility] Bacteria identified in Blood by Culture Blood Culture [facility] Work Phone: Bacteria identified in Urine by Culture Urine Culture [facility] Work Phone: Benzodiazepine measurement, urine [facility] Blood culture [facility] Work Phone: C reactive protein [Mass/volume] in Serum or Plasma [facility] Cancer Ag 125 [Units/volume] in Serum or Plasma [facility] Work Phone: Cocaine measurement, urine [facility] Erythrocyte sedimentation rate [facility] Ethanol [Mass/volume ] in Serum or Plasma [facility] fentaNYL [Presence] in Urine by Screen method [facility] Folate [Moles/volume ] in Serum or Plasma [facility] Hemoglobin A1c/Hemoglobin.total in Blood [facility] Magnesium measurement [facility] Methadone measuremen t, urine [facility] Patient Education [facility] docrinology Work Phone: Patient referral [facility] Work Phone: Phencyclidine [Prese nce] in Urine [facility] Troponin I measurement [facility] Work Phone: Urine cannabinoid measurement [facility] Urine culture [facility] Urine opiate measurement [facility] Immunizations Immunization Date Immunization Notes Care Provider Arlin sen 03-30-2016 influenza, injectabl e, quadrivalent, preservative free [facility] 03-30-2016 influenza, seasonal, injectable Dr. Shayna Malhotra Work Phone: [facility] 10-31-2012 influenza, injectabl e, quadrivalent, preservative free [facility] 10-31-2012 influenza, seasonal, injectable Dr. Shayna Malhotra Work Phone: [facility] 06-06-2012 pneumococcal polysaccharide vaccine, [address] Shayna Malhotra Work Phone: [facility] 09-04-2010 pneumococcal polysaccharide vaccine, [address] 1 [facility] Work Phone: Payers Date Payer Category Payer Self-pay [id number] 2021 Medicare [id number] [id number] 2016 Unknown [id number] 2016 Unknown [id number] Unknown [id number] 2.16.8 [id number] Unknown [id number] 2.16.8 40.1.346455.3.579.2.462 Unknown [id number] 2.16.8 40.1.745065.3.579.2.462 Unknown [id number] 2.16.8 40.1.932800.3.579.2.462 Unknown [id number] 2.16.8 40.1.861486.3.579.2.462 Unknown [id number] 2.16.8 40.1.256856.3.579.2.462 Unknown [id number] 2.16.8 40.1.468822.3.579.2.462 Unknown [id number] 2.16.8 40.1.081910.3.579.2.462 Unknown [id number] 2.16.8 40.1.164384.3.579.2.462 Unknown [id number] 2.16.8 40.1.442296.3.579.2.462 Unknown [id number] 2.16.8 40.1.504271.3.579.2.462 Unknown [id number] 2.16.8 40.1.371301.3.579.2.462 Unknown [id number] 2.16.8 40.1.616308.3.579.2.462 Unknown [id number] 2.16.8 40.1.206635.3.579.2.462 Unknown [id number] 2.16.8 40.1.164606.3.579.2.462 Unknown [id number] 2.16.8 40.1.702388.3.579.2.462 Unknown [id number] 2.16.8 40.1.211576.3.579.2.462 Unknown [id number] 2.16.8 40.1.221873.3.579.2.462 Unknown [id number] 2.16.8 40.1.092772.3.579.2.462 Unknown [id number] 2.16.8 40.1.470277.3.579.2.462 Social History Date Type Detail Facility Start: 07-29-2021 End: 10-09-2024 Tobacco smoking status NHIS Ex-smoker [facility] History of tobacco use Cigarette Smoker [facility] Start: 07-29-2021 Cigarettes smoked current (pack per day) - Reported 0.5 [facility] Start: 07-29-2021 Tobacco use and exposure Smokeless tobacco non-user [facility] Start: 09-01-2021 End: 10-02-2021 Alcohol intake Current non-drinker of alcohol (finding) [facility] Start: 1950 Sex Assigned At Not on file [facility] Start: 08-22-2021 End: 10-02-2021 Exposure to SARS-CoV-2 (event) Not sure [facility] Start: 09-20-2021 End: 01-09-2023 Tobacco smoking status [facility] Unknown if ever smoked [facility] Start: 08-02-[address] [facility] Start: 08-02-[address] [facility] Start: 08-02-[address] [facility] Start: 1950 Sex Assigned At Female [facility] Start: 10-09-2024 Sex Female (finding) [facility] Sex Female [facility] Medical Equipment Procedure Code Equipment Code Equipment Origin al Text Equipment Identifier Dates Blood Sugar Diagnostic (Freestyle Lite Strips) strip Start: 03-01-2019 Blood Sugar Diagnostic (Freestyle Lite Strips) strip Start: 09-14-2017 Lancets (Freesty le Lancets) 28 gauge amg [facility] Start: 03-01-2019 Blood Sugar Diagnostic (Freestyle Lite [...] (Freestyle Lite Strips) strip Start: 09-14-2017 End: 04-11-2018 Lancets (Freesty le Lancets) 28 gauge misc [...] Activity Abili ty With Assist of 2 [facility] Work Phone: 10-10-2024 Functional status Active Range of Motion [facility] Work Phone: 11-24-2021 Functional status Ambulates;Chair [facility] Work Phone: 09-22-[address] [facility] Work Phone: 09-22-[address] [facility] Work Phone: 09-21-2021 Functional status Tolerates Activity Well [facility] Work Phone: Mental Status Date Assessment Result Facility 10-11-2024 Cognitive function Voice/Name [facility] Work Phone: 10-10-2024 Cognitive function Cooperative;Anxious;Ta lkative [facility] Work Phone: 11-24-2021 Cognitive function Voice/Name [facility] Work Phone: 09-22-2021 Cognitive function Voice/Name [facility] Work Phone: 09-20-2021 Cognitive function Level Of Cons ciousness Awake;Alert;Appropriate;Follow s Commands;Drowsy [facility] Work Phone: Clinical Notes 07-29-2021 to 10-11-2024 Note Date & Type Note Facility 10-11-2024 Note [facility] Medical Records Department [address] [place] [address] Discharge Summary 10/11/24 1135 MR#: [id number] Acct: [id number] Name: VIDA NINA Rep #: [id number] : 1950 73 From: Tyrell Page MD PCP: Dr. 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 No soft tissue gas. Will consult depalletizer operator for further opinion. PT and OT and [...] 72.1 H, Lymph % (Auto) 16.3 L, Crosby % (Auto) 8.3, Eos % (Auto) 2.5, Baso % (more content not included)... [facility] 10-10-2024 Progress note Note Date/Time October 10, 2024 4:49pm [facility] Medical Records Department [address] [place] [address] Progress Note - Hospitalist 10/10/24 0739 MR#: [id number] Acct: [id number] Name: VIDA NINA Rep #:[id number] : 1950 73 From: Tyrell Resendez PCP: Dr. 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 Soft tissue swelling. Reading Location: [facility] Lower Extremity CT 10/09/24 22:15 IMPRESSION: [...] Reading Location: [facility] Physical Exam Narrative Seen and examined. 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 No soft tissue gas. Will consult depalletizer operator for further opinion. PT and OT and [...] 72.1 H, Lymph % (Auto) 16.3 L, Crosby % (Auto) 8.3, Eos % (Auto) 2.5, [...] Clarity Cloudy, Urine pH 5.0, Ur Specific Neon 1.020, Urine Protein 30 H, Urine Glucose [...] % (Auto) 65.4, Lymph % (Auto) 19.6, Crosby % (Auto) 9.1, Eos % (Auto) 5.1 [...] 165 H Charges/Coding Visit Charges Inpatient E&M: 44483 Subs Hosp L2 10/10/24 1530 <Electronically signed [...] need inpatient psych unit facility transfer 10/10/24 6019<Electronically signed by Tyrell Page MD> Cosigner Signature (if applicable): cc: ~* Signed [facility] Work Phone: 1(692) 879-589105-07-2025 Progress note [facility] Medical Records Department [address] [place] [address] Progress Note - Hospitalist 10/10/24 0739 MR#: [id number] Acct: [id number] Name: VIDA NINA Rep #:[id number] : 1950 73 From: Tyrell Resendez PCP: Dr. 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 Soft tissue swelling. Reading Location: [facility] Lower Extremity CT 10/09/24 22:15 IMPRESSION: [...] Hernandez at 2:20 a.m. 10/10/2024 Reading Location: [id number] Physical Exam Narrative Seen and examined. Patient [...] status: with other specified complication Diabetes mellitus terminal computer operator insulin use: with terminal computer operator use Qualified Code(s): E11.69 - Type 2 diabetes mellitus with other specified complication; Z79.4 - residential (current) use of insulin PLAN: Plan 73-year-old [...] edema. No soft tissue gas. Will consult depalletizer operator for further opinion. PT and OT and [...] 72.1 H, Lymph % (Auto) 16.3 L, Crosby % (Auto) 8.3, Eos % (Auto) 2.5, [...] Clarity Cloudy, Urine pH 5.0, Ur Specific Neon 1.020, Urine Protein 30 H, Urine Glucose [...] % (Auto) 65.4, Lymph % (Auto) 19.6, Crosby % (Auto) 9.1, Eos % (Auto) 5.1 [...] 165 H Charges/Coding Visit Charges Inpatient E&M: 38791 Subs Hosp L2 10/10/24 1530 Cosigner Signature [...] Cosigner Signature (if applicable): cc: ~* Signed [facility]05-07-2025 History and physical note Author Missael Lomeli [facility] Note Date/Time October 10, 2024 6:53am [facility] Medical Records Department [address] [place] [address] H&P Exam - Hospitalist 10/09/242118 MR#: [id number] Acct: [id number] Name: VIDA NINA Rep #:[id number] : 1950 73 From: Missael Joiner DO PCP: Dr. Shayna Malhotra MD Status:ADM IN Location: [facility] [id number] HPI - General General Date of Admission: [...] is currently residing in assisted living at [facility] presents to [facility] ER complaining of worsening Left heel [...] skin folds and extremely poor hygiene with FIELD CROP TECHNICAL OFFICER having social work consulted and patient felt [...] is expected to extend beyond 2 midnights. [facility] Medical History Obesity Anxiety Cancer Anxiety Diabetes [...] acetonide 0.1 % 1 applic topical Q12H MA N PRN Rash 09/20/21 Unknown History topical [...] History powder primary doctor blood sugar diagnostic [facility]21 Unknown Hi story Lite Strips) [facility]glucose [facility] ([facility] 11/23/21 Unknown Histo ry Lite Meter kit) lancets 28 gauge ([facility] 11/23/21 Unknown History Lancets) nystatin 100,000 unit/gram topical 1 applic topical TI D #0 grams 11/24/21 Unknown Rx powder ([facility]) quetiapine 100 mg tablet 300 mg (3 [...] (Auto) 72.1 H, Lymph % (Auto) 16.3 L,Crosby % (Auto) 8.3, Eos % (Auto) 2.5, [...] Clarity Cloudy, Urine pH 5.0, Ur Specific Neon 1.020, Urine Protein 30 H, Urine Glucose [...] changes. Soft tissue swelling. Reading Location: [facility] Imaging Services [address] [place] [address] Extremity Lower without Contra MR#: [id number] Acct: [id number] Name: VIDA NINA Rep #: [id number] : 1950 F 73 From: aSul Sanchez MD PCP: Dr. Shayna Malhotra MD Status: ADM IN Study: Extremity Lower without Contra Date of Exam: 10/09/24 Exam# [id number] Ordering Dr: Missael Hernandez DO PROCEDURE: EXTREMITY [...] Hernandez DO; Dr. Shayna Malhotra MD ~ Chrome Plater Helper: Signed Assessment & Plan Assessment/Plan (1) Acute cystitis with hematuria: (2) Neuropathic pain of foot: (3) Poor hygiene: (4) Unable to care for self: (5) Bipolar 1 disorder: (6) Morbid obesity with BMI of 45.0-49.9, adult: (7) DM2 (diabetes mellitus, type 2): QUALIFIERS: Diabetes mellitus complication status: with other specified complication Diabetes mellitus terminal computer operator insulin use: with terminal computer operator use Qualified Code(s): E11.69 - Type 2 diabetes mellitus with other specified complication; Z79.4 - residential (current) use of insulin PLAN: Plan 1. Acute Cystitis; with microscopic hematuria in the setting of known frequent UTIs - Admit to general medical floor. Continue empiric IV ceftriaxone and await culture and sensitivity data. Give acetaminophen as needed for nhmk-kx-qnucrtha (level 1- 5/10) pain or fever. Give [...] patient Unable to Care for Herself at [facility] after the recent incarceration of her [...] 75 minutes. Charges/Coding Visit Charges Inpatient E&M: 98528 Init Hosp L3 10/10/24 0653 <Electronically signed by Missael Hernandez DO> Cosigner Signature (if applicable): CC: Dr. Missael Hernandez DO; Dr. Shayna Malhotra MD~ Signed [facility] Work Phone: 1(292) 246-196305-07-2025 History and physical note [facility] Medical Records Department [address] [place] [address] H&P Exam - Hospitalist 10/09/242118 MR#: [id number] Acct: [id number] Name: VIDA NINA Rep #:[id number] : 1950 73 From: Missael Joiner DO PCP: Dr. Shayna Malhotra MD Status:ADM IN Location: MS3 [id number] [facility] - General General Date of Admission: [...] is currently residing in assisted living at [facility] presents to [facility] ER complaining of worsening Leftheel pain [...] skin folds and extremely poor hygiene with FIELD CROP TECHNICAL OFFICER having social work consulted and patient felt [...] is expected to extend beyond 2 midnights. [facility] Medical History Obesity Anxiety Cancer Anxiety Diabetes [...] acetonide 0.1 % 1 applic topical Q12H MA N PRN Rash 09/20/21 Unknown History topical [...] D #0 grams 11/24/21 Unknown Rx powder ([facility]) quetiapine 100 mg tablet 300 mg (3 [...] (Auto) 72.1 H, Lymph % (Auto) 16.3 L,Crosby % (Auto) 8.3, Eos % (Auto) 2.5, [...] Clarity Cloudy, Urine pH 5.0, Ur Specific Neon 1.020, Urine Protein 30 H, Urine Glucose [...] changes. Soft tissue swelling. Reading Location: [facility] Imaging Services [address] [place] [address] Extremity Lower without Contra MR#: [id number] Acct: [id number] Name: VIDA NINA Rep #: [id number] : 1950 F 73 From: Saul Sanchez MD PCP: Dr. Shayna Malhotra MD Status: ADM IN Study: Extremity Lower without Contra Date of Exam: 10/09/24 Exam# [id number] Ordering Dr: Missael Hernandez DO PROCEDURE: EXTREMITY [...] OF [place] CC: Dr. Missael Hernandez, DO; Dr. 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 Acute Cystitis; with microscopic hematuria in the setting of known frequent UTIs - Admit to general medical floor. Continue empiric IV ceftriaxone and await culture and sensitivity data. Give acetaminophen as needed for cszr-xg-tkwltyxj (level 1-5/10) pain or fever. Give oxycodone [...] patient Unable to Care for Herself at [facility] after the recent incarceration of her [...] 75 minutes. Charges/Coding Visit Charges Inpatient E&M: 05315 Init Hosp L3 10/10/24 0653 Cosigner Signature (if applicable): CC: Dr. Missael Hernandez DO; Dr. Shayna Malhotra MD~ Signed [facility]05-07-2025 Radiology Diagnostic study note [facility] Imaging Services [address] [place], [place] [address] Extremity Lower without Contra MR#: [id number] Acct: [id number] Name: VIDA NINA Rep #: [id number] : 1950 F 73 From: Daniel Sanchez MD PCP: Dr. Shayna Malhotra MD Status: ADM IN Study:Extremity Lower without Contra Date of Exam: 10/09/24 Exam# [id number] Ordering Dr: Missael Piña DO PROCEDURE: EXTREMITY [...] Hernandez DO; Dr. Shayna Malhotra MD ~ Chrome Plater Helper: Signed [facility]05-06-2025 Discharge summary Author Dany [facility] Note Date/Time October 09, 2024 9:22pm [facility] Medical Records Department [address] [place] [address] Emergency Department Summary 10/09/24 MR#: [id number] Acct: [id number] Name: VIDA NINA Rep #:[id number] : 1950 73 From: Dany Richardson MD PCP: Dr. Shayna Malhotra MD Status:REG ER Location: ED HPI History of Present Illness Chief Complaint: Lower Extremity Injury Narrative Narrative: 73-year-old female states that she had pins placed in her left foot approximately 15 years ago [place] after breaking her heel. She is currentlyin [facility]. She states for the last 2 weeks she has been having increasing foot pain. She states that on Tuesday, probably of the last week, she had [facility]. She went and saw Dr. Shayna Malhotra on Tuesday, but he did not have the x-ray results. She states that she is having a lot of pain in her left heel that is worse with weightbearing and walking and palpation. She states that it feels as if she is having a baby out of her left heel. [facility] Medical History Obesity Anxiety Cancer Anxiety [...] acetonide 0.1 % 1 applic topical Q12H MA N PRN Rash 09/20/21 Unknown History topical [...] D #0 grams 11/24/21 Unknown Rx powder ([facility]) quetiapine 100 mg tablet 300 mg (3 x 100 mg) PO BID # 0 tabs 11/24/21 Unknown Rx aspirin 81 mg chewable tablet 81 mg PO DAILY 12/01/22 Unknown History empagliflozin 10 mg tablet 10 [...] nonspecific foot pain. She was given 1 [place] for analgesia here, and x- rays were [...] plan was to discharge her back to [facility], however I was approached by the [...] 72.1 H Lymph % (Auto) 16.3 L Crosby % (Auto) 8.3 Eos % (Auto) 2.5 [...] Clarity Cloudy Urine pH 5.0 Ur Specific Neon 1.020 Urine Protein 30 H Urine Glucose [...] your Primary Care Provider. Call [facility] ([phone]) or report to the closest Emergency Room. Call 911 if necessary. 10/09/242121 <Electronically signed by Dany Richardson MD> Cosigner Signature (if applicable): CC: Dr. Shayna Malhotra MD ~ Signed [facility] Work Phone: 1(847) 137-145105-06-2025 Discharge summary [facility] Medical Records Department [address] [place] [address] Emergency Department Summary 10/09/24 MR#: [id number] Acct: [id number] Name: VIDA NINA Rep #:[id number] : 1950 73 From: Dany Richardson MD PCP: Dr. Shayna Malhotra MD Status:REG ER Location: ED HPI History of Present Illness Chief Complaint: Lower Extremity Injury Narrative Narrative: 73-year-old female states that she had pins placed in her left foot approximately 15 years ago [place] after breaking her heel. She is currentlyin [facility]. She states for the last 2 [...] a baby out of her left heel. [facility] Medical History Obesity Anxiety Cancer Anxiety [...] acetonide 0.1 % 1 applic topical Q12H MA N PRN Rash 09/20/21 Unknown History topical [...] D #0 grams 11/24/21 Unknown Rx powder ([facility]) quetiapine 100 mg tablet 300 mg (3 x 100 mg) PO BID # 0 tabs 06/21/22 Unknown Rx aspirin 81 mg chewable tablet [...] nonspecific foot pain. She was given 1 [place] for analgesia here, and x-rays were obtained of the left footin 3 views. On my independent interpretation of her x-rays, there are postsurgical changes including hardware,but no evidence of a periprosthetic fracture, no noted loosening of hardware. There are arthritic changes as well. I reviewed the radiology report which confirms my independent interpretation. Initially my plan was to discharge her back to [facility], however I was approached by the [...] 72.1 H Lymph % (Auto) 16.3 L Crosby % (Auto) 8.3 Eos % (Auto) 2.5 [...] Clarity Cloudy Urine pH 5.0 Ur Specific Neon 1.020 Urine Protein 30 H Urine Glucose [...] self, UTI (urinary tract infection) Disposition Disposition: [facility] What to do if you have Problems For any increased pain, shortness of breath, bleeding, nausea or vomiting, chestpain, or any unexpected problems, contact your Primary Care Provider. Call [facility] ([phone]) or report tothe closest Emergency Room. Call 911 if necessary. 10/09/242121 Cosigner Signature (if applicable): CC: Dr. Shayna Mlahotra MD ~ Signed [facility]-06-[facility]25 Radiology Diagnostic study note [facility] Imaging Services [address] [place] [address] Foot min 3 Views MR#: [id number] Acct: [id number] Name: VIDA NINA Rep #: [id number] : 1950 F 73 From: Katarina Jiménez MD PCP: Dr. Shayna Malhotra MD Status: [facility] ER Study:Foot min 3 Views Date of Exam: 11/28 Exam# [id number] Ordering Dr: Dany Richardson MD EXAM: LEFT [...] Richardson MD; Dr. Shayna Malhotra MD ~ Chrome Plater Helper: Signed [facility]-29[facility]25 Evaluation note* Diagnosis Onset Date Resolution [...] 2) chronic October 09, 2024 9: 56pm [facility] Work Phone: [phone] 950-761304-29-2022 NoteHNO ID: [id number] Author: Jennifer Cuevas MD Service: ? Author Type: Physician Type: Progress Notes Filed: 12/01/2021 8:04 AM Note Text: Gynecologic Oncology [facility] Follow up visit Date of service: 10/02/2021 PROBLEM/CC: Vida Nina presents for a post-op visit. SURGICAL PATHOLOGY [[id number]] Collected: 09/07/21 1104 Order Status: Completed Specimen: Tissue from UTERUS, CERVIX, BILATERAL FALLOPIAN TUBES AND BILATERAL OVARIES Updated: 09/11/21 1319 Case Report -- Surgical Pathology Report ? Case: [id number] ? Authorizing Provider: ?Jennifer Cuevas MD ? [...] A11 and A16 were reviewed at the [facility] gynecologic pathology consensus conference via telepathology on 09/09/20[address] Lupe Younger and Andra Franco agree with the diagnosis of acute salpingitis. ? Laboratory Developed Test (LDT) Disclaimer: Performance characteristics of immunohistochemical, immunofluorescent and chromogenic in-situ hybridization tests have been determined by the performing laboratory within [facility]?s [facility] ([facility], [facility], [facility] or [facility]) in a manner consistent with [...] pT, pN, and ( (more content not included)...[facility]04-29-2022 History of Present illness Narrative* Jennifer Cuevas MD - 10/02/2021 1:00 PM EDT Gynecologic Oncology [facility] Follow up visit Date of service: 10/02/2021 PROBLEM/CC: Vida Nina presents for a post-op visit. SURGICAL PATHOLOGY [[id number]] Collected: 09/07/21 1104 Order Status: Completed Specimen: Tissue from UTERUS, CERVIX, BILATERAL FALLOPIAN TUBES AND BILATERAL OVARIES Updated: 09/11/21 1318 Case Report -- Surgical Pathology Report Case: [id number] Authorizing Provider: Jennifer Cuevas MD Collected: 09/07/2021 11:04 AM Ordering Location: [facility] Received: 09/07/2021 11:12 AM Pathologist: [...] A11 and A16 were reviewed at the [facility] gynecologic pathology consensus conference via telepathology on 09/09/20[address] Lupe Younger and Andra Franco agree with the diagnosis of acute salpingitis. Laboratory Developed Test (LDT) Disclaimer: Performance characteristics of immunohistochemical, immunofluorescent and chromogenic in-situ hybridization tests have been determined by the performing laboratory within [facility] s [facility] and Laboratory [facility] ([facility], [facility], [facility] or [facility]) in a manner consistent with [...] fibrous ovarian parenchyma with no lesions identified. Sliver Lap Machine Tender sections are submitted as follows: A1-anterior cervix [...] A 17-right ovary Gross examination performed at [facility], [address] [place] [address] CLIA#[id number] OLS September 08, 2021 10:33 AM Intraoperative [...] many years since she has seen a 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 Reports normal pap [...] Her incisions have healed well. Abdomen non-tender. Plate Painter for exam: Sherrie RESULTS: 07/26/21: ULTRASOUND The [...] without Cont on 08-07-2021 Abdomen/Pelvis without Cont [facility] Imaging Services [address] [place] [address] Abdomen/Pelvis without Cont MR#: [id number] Acct: [id number] Name: VIDA NINA Rep #: [id number] : 1950 F 70 From: Power Lopez MD PCP: Dr. Shayna Malhotra MD Status: REG CLI Study: Abdomen/Pelvis without Cont Date of Exam: 09/25 Exam# [id number] Ordering Dr: Saad Villagomez MD STUDY: CT [...] Paper guidelines (Godoy-Parrish, et al. JACR 2017; 14(8):9479-9550) suggest no imaging follow-up is necessary. ACR White Paper guidelines (Godoy-Parrish, et al. JACR 2017; 14(8):8762-7574) suggest no imaging follow-up is necessary. Consider [...] diagnosis with patient and caregiver (Arianna from [facility]). Discussed recommendations for treatment including TLH-BSO, sentinel [...] deemed medically necessary. Reviewed prior records from [facility] and Dr. Villagomez (medical oncologist) office. Requested images from CT A/P and ultrasound to be uploaded for review. Noted elevated CA 125. Plan to proceed with surgery in September. Will need preoperative anesthesia appointment. Contact information for Jose Rafael Resendiz: nurse line [phone]; front end alignment specialist [phone]. Documentation from my notes of previous visit [...] arrange referral to radiation treatment center in [place], [place] five minutes from where she lives. [...] Past Histories independently gathered by the clinical applications support engineer and the remaining scribed note accurately describes my personal service to the patient. documented in this encounterLima [facility]04-29-2022 Nurse Note* Moriah Aldridge RN - 10/02/2021 12:50 PM EDT Patient arrived amb A&Ox4 in [facility] for post op visit. Patient admits to pain in abd and lower back resolved since surgery. Pt denies any new concerns, today. Pt here with Marguerite, friend. Enc and support provided. Moriah Aldridge RN documented in this encounterLima [facility] Hospital04-18-2022 Miscellaneous Notes* Telephone Encounter - Jeffrey Ferris - 09/21/2021 12:10 PM EDT Spoke to Nurse Bernadine from [facility] stated that the patient is in the hospital and she will call when the patient comes out. So 09/22/21 appt in this office with Dr. Cuevas has been cancelled. Jeffrey Ferris 09/21/21 documented in this encounterLima [facility] Hospital04-07-2022 Miscellaneous Notes* Telephone Encounter - Taniya Balderas APRN.CNP - 09/10/2021 8:25 AM EDT Called [facility] left message on nurse line to [...] to. meds that are susceptible are iv. jail can recheck urine if still + then would need to get ID involved verbal instructions per Dr julieth Balderas APRN.HELP DESK SUPERVISOR documented in this encounterLima [facility] Hospital04-06-2022 Miscellaneous Notes* Telephone Encounter - Summer Turcios RN - 09/09/2021 2:50 PM EDT Franklin from [facility] returned call to this RN. Reviewed [...] confidential e-mail) Attempted to call Franklin at [facility] to review above message, no answer. Left message on voicemailto return call. Summer Turcios RN * Telephone Encounter - Summer Turcios RN - 09/09/2021 1:58 PM EDT Franklin, administrative nursing supervisor at [facility] called stated, "one of patient's lap [...] e-mail). Summer Turcios RN documented in this encounterLima [facility] Hospital04-05-2022 NoteHNO ID: [id number] Author: Sam Naidu DO Service: Gynecology Oncology [...] Date 09/07/21 0700 - 09/08/21 0659 Shift 2260-1789 8002-5072 2130-9252 24 Hour Total PO 360 360 PO 360 360 IV 8256 587 9025 Volume (mL) (ceFAZolin 3 g in D5W 100 mL (ANCEF)) 100 100 Volume (mL) (NaCl 0.9% iv infusion) 500 500 Volume (mL) (lactated ringers iv infusion) 1300 1300 Volume (mL) (lactated ringers iv infusion) 300 300 Shift Total 6665 289 0480 Urine 1000 1000 Void (ml) 1000 1000 [...] PRN Sam Naidu, DO 0.5 mg at 09/07/21 2104 - lamoTRIgine 100 mg tab(s) (LaMICtal) 100 [...] H Sam Naidu, DO 5 mL at 09/07/216 - ondansetron orally disintegrating 4 mg tab(s) (ZOFRAN ODT) 4 mg ORAL q 6 H PRN Sam Naidu, DO Or - ondansetron (PF) 4 mg injection (ZOFRAN) 4 mg INTRAVENOUS q 6 H PRN Sam Naidu, DO - acetaminophen 1,000 mg tab(s) (TYLENOL) 1,000 mg ORAL q 8 H Sam Naidu, DO 1,000 mg at 09/08/21 0512 - keTORolac 15 mg injection (TORADOL) 15 [...] 1545 VTE RISK CATEGORY: SURGICAL HIGH RISK (AR,[place]) Active VTE Medication Orders: Anticoagulant AND Antiplatelet Medications (From admission, onward) Start Dose Route Frequency Last Action Ordered Stop 09/08/21 0900 enoxaparin 40 mg injection (LOVENOX) (Surgical Risk Categories) 40 mg SUBCUTANEOUS EVERY 24 HOURS Ordered 09/07/21 1542 -- Active VTE Prophylaxis Orders: 09/07/21 1545 PNEUMATIC COMPRESSION STOCKINGS ([place]) 09/07/211544 ACTIVITY - MOBILIZE PATIENT (AR,[place]) VTE Prophylaxis: VTE prophylaxis appropriate Assessment/Plan Vida Nina is a 70 year old year old female POD#1 s/p EUA, TLH-BSO for endometrial cancer #Postoperative care - VSSAF - VTE (more content not included)...[facility]04-04-2022 Note HNO ID: [id number] Author: Hieu Raymond APRN.CABLE SPLICER Service: Anesthesiology Author Type: Nurse Lodging Manager Type: Anesthesia Procedure Notes Filed: 09/07/2021 9:28 AM Note Text: ANESTHESIOLOGY PROCEDURE NOTE Airway General Information Procedure Start Time/Medication Administration: 09/07/2021 8:29 AM Patient location during procedure: OR Timeout Performed Pre-procedure: timeout performed Consent Obtained: Yes Patient identity confirmed: arm band Staffing CABLE SPLICER: Hieu Raymond APRN.CABLE SPLICER Performed by: ANURAG Indications and Patient Condition Preoxygenated: yes Patient position: sniffing, ramp and reverse Trendelenburg Manual In-Line Stabilization: No Difficult Mask: No Indications for airway management: anesthesia anesthesia circuit Method: modified rapid sequence Cricoid Pressure: Yes Airway Accessory: oral airway Final Airway Details Final airway type: endotracheal airway Final Endotracheal Airway: ETT Cuffed: yes Successful intubation technique: video laryngoscopy Devices used: GenPrime Endotracheal tube insertion site: oral Blade: Osman [...] intubation: no Difficult airway SIGNATURE: Hieu Raymond APRN.CABLE SPLICER PATIENT NAME: Vida Nina DATE: September 07, 2021 TIME: 9:25 AM CSN: [id number]03-[facility] Instructions * Patient Instructions* Naila Barrientos APRN.HELP DESK SUPERVISOR - 09/01/2021 3:11 PM EDT PATIENT PREOPERATIVE INSTRUCTIONS Your surgeon has scheduled for your procedure at this surgery center: Dr. Cuevas has scheduled you for your procedure at this surgery center [facility]: [phone], [address] [place], [place] [address] Enter the hospital through the main entrance and proceed directly to the Surgery Welcome Center. Asyou enter the Surgery Welcome Center and sign in with the tarring machine operator, we may ask for your photo ID [...] If you are having surgery at the [facility], please bring your glucometer Pain Medications: [...] surgery. - YOU MUST HAVE A RESPONSIBLE DRENCHER TAKE YOU HOME. A SEWING MACHINES SALESPERSON, CAB OR UBER DRENCHER CANNOT BE MADEA RESPONSIBLE DRENCHER. - We recommend that a responsible person [...] COVID-19 positive. If visitors do not follow [facility] masking guidelines, caregivers can ask [facility] to [facility] and restrict their visitation privileges. For support, contact Elizabeth at [phone] or [email or web address]. The visitor will be allowed to [...] and will then instruct the visitor for pickling operator directions Visitors who have tested positive for [...] Faster: A Guide of Mind Body Techniques ([place], [place];[employer]: Fourth Edition) 2011 Naila Barrientos APRN.CNP 09/01/21 documented in this encounterLima Memorial Hospital03-29-2022 History and physical note * Naila GILA Barrientos.HELP DESK SUPERVISOR - 09/01/2021 2:53 PM EDT HISTORY AND [...] with Dr. Cuevas. Surgery will be at [facility] Scheduled as an TBA Have you [...] Negative for: AICD/PPM, chest pain, CHF, recent ND and open heart surgery. GI: Positive for: abdominal pain Negative for: nausea and vomiting. : No history of dysuria, frequency or incontinence, stones or chronic kidney disease. No difficulty urinating, nocturia > 1 time per night or hematuria. EROSION CONTROL COORDINATOR: S/p menopause Endocrine: Positive for: diabetes mellitus. [...] or any previous visit (from the past 00979 hour(s)). Assessment No problem-specific Assessment & Plan [...] slightly elevated. Treated with oral medications. No chaser tar Hyperlipidemia- treated with a statin Pertinent cardiac [...] Initiated: Ordered by surgeon- none Ordered by psych np - cbc, T*S, con abo Instructions Given to Patient: Instructions located in the after visit summary. Patient given verbal and written preop instructions and voices comprehension and compliance. SIGNATURE: Naila Barrientos APRN.CNP PATIENT NAME: Vida Nina DATE: September 01, 2021 TIME: 2:53 PM PAGER/CONTACT #: [facility] NoteHNO ID: [id number] Author: Jennifer Cuevas MD Service: ? Author Type: Physician Type: Progress Notes Filed: 08/26/2021 1:21 PM Note Text: Gynecologic Oncology [facility] [place] [facility] Date of service: 08/21/2021 PCP: [...] many years since she has seen a 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 Age at Menarche: ? Age at First : ? Age at Menopause: ? Cyber Software Engineer History Comments: ? Sexual Activity: Not Asked; [...] 1 capsule by mouth (more content not included)...[facility] 07-29-2021 NoteHNO ID: [id number] Author: Krunal Erazo MD Service: ? Author [...] many years since she has seen a 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 Cyber Software Engineer History LMP: Postmenopausal Age at Menarche: Age at First : Age at Menopause: Cyber Software Engineer History Comments: Sexual Activity: Not Asked; No [...] external genitalia atrophic, normal Bartholin's glands, urethra, [place]'s glands, no vulvar lesions, no cervical lesions, good vaginal support, normal appearing perineal body and perianal region, scant (more content not included)...[facility] Diagnosis Pre-op testing- Primary Preoperative examination, unspecified Endometrial cancer (HCC) Malignant neoplasm of corpus uteri, except isthmus Mixed hyperlipidemia 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, with long-term current use of insulin (HCC) Primary hypertension Unspecified essential hypertension Endometrial cancer (HCC) Malignant neoplasm of corpus uteri, except isthmus [facility] Diagnosis Onset Date Resolution Status Uterine mass acute Endometrial adenocarcinoma a cute Debility acute Pulmonary embolism acute [facility] Work Phone: Evaluation note* Diagnosis Onset Date Resolution Status Uterine mass acute Endometrial adenocarcinoma a cute Debility acute Pulmonary embolism acute Debility acute Elevated troponin I level ac mark Lactic acidosis acute DM2 (diabetes mellitus, type 2) chronic [facility] Work Phone: Evaluation note* Diagnosis Endometrial cancer (HCC)- Primary Malignant neoplasm of corpus uteri, except isthmus documented in this encounter [facility] note* Diagnosis Onset Date Resolution Status Debility acute Pulmonary embolism acute Debility acute DM2 (diabetes mellitus, type 2) chronic Elevated troponin I level re solved Lactic acidosis resolved [facility] Work Phone: Evaluation noteNo assessment information available [facility] Work Phone: Evaluation note* Diagnosis Onset Date Resolution Status Debility acute Endometrial adenocarcinoma a cute Former smoker acute History of seizures acute Pulmonary embolism acute Vitamin D deficiency acute Bipolar disorder chronic DM2 (diabetes mellitus, type 2) chronic Type 1 diabetes mellitus chr onic [facility] Work Phone: Evaluation note* Diagnosis Onset Date Resolution Status Debility acute Vitamin D deficiency acute Bipolar disorder chronic Depression chronic DM2 (diabetes mellitus, type 2) chronic [facility] Work Phone: [facility]WM[facility] Work Phone: Hospital Discharge instructions [...] care physician for further outpatient evaluation and management.[facility] Work Phone: Reason for referral (narrative)No reason for referral information availableWMarietta Memorial Hospital Work Phone: Summary Purpose Family [...] FoundDocuments on File Type Date Recorded Patient Sliver Lap Machine Tender Expl anation Advance Directive(s) 09/07/2021 6:14 AM Advance Directive Response Recorded Date/ Time Living Will No September 20, 2021 7:30am Power of Breakdown Man No September 20 7:30am Advance Directive Response Recorded Date/ Time Living Will No September 20, 2021 12:38pm Power of Breakdown Man No September 20 12:38pm Advance Directive Response Recorded Date/ Time Name of Medical Power of Breakdown Man TODD November 22, 2021 1:03pm Living Will Yes November 22, 2021 1:03pm Power of Breakdown Man Yes November 22 1:03pm Advance Directive Response Recorded Date/ Time Name of Medical Power of Breakdown Man Todd Nina November 22, 2021 5:55pm Living Will No November 22, 2021 5:55pm Power of Breakdown Man Yes November 22 5:55pm Advance Directive Response Recorded Date/ Time Living Will No April 13 10:27am Power of Breakdown Man Yes April 13, 2022 10:27am Advance Directive Response Recorded Date/ Time Living Will No April 13 11:27am Power of Breakdown Man Yes April 13, 2022 11:27am Advance Directive Response Recorded Date/ Time Living Will No January 09, 2023 5:18pm Power of Breakdown Man No January 09 5:18pm Advance Directive Response Recorded Date/ Time Living Will No January 09, 2023 4:18pm Power of Breakdown Man No January 09 4:18pm Advance Directive Response Recorded Date/ Time Do you have a Healthcare Power of Breakdown Man? Yes October 09, 2024 5:45pm Advance Directive Response Recorded Date/ Time Do you have a Healthcare Power of Breakdown Man? No October 09, 2024 11:07pm Health Concerns Infection Onset Date Last Indicated Resolved Time COVID-19 Rule-Out 09/07/2021 09/07/2021 Chief Complaint and Reason for Visit Chief Complaint PENITENTIARY LABOWRK PENITENTIARY LABWORK PENITENTIARY LABWORK VAGINAL BLEEDING NEW-CERVICAL MASS MED ONC CERVICAL MASS 2WKS NO LABS REVIEW CT/PATH [facility]O [facility] PE, FAILURE TO THRIVE PE, FAILURE TO THRIVE Reason for Visit Uterine mass Endometrial adenocarcinoma Debility Pulmonary embolism Chief Complaint PENITENTIARY LABOWRK PENITENTIARY LABWORK PENITENTIARY LABWORK VAGINAL BLEEDING NEW-CERVICAL MASS MED ONC CERVICAL MASS 2WKS NO LABS REVIEW CT/PATH FRO [facility] PE, FAILURE TO THRIVE PE, FAILURE TO THRIVE PE, FAILURE TO THRIVE PE, FAILURE TO THRIVE Reason for Visit Uterine mass Endometrial adenocarcinoma Debility Pulmonary embolism Chief Complaint PENITENTIARY LABWORK PENITENTIARY LABWORK VAGINAL BLEEDING NEW-CERVICAL MASS MED ONC CERVICAL MASS 2WKS NO LABS REVIEW CT/PATH FRO [facility] PENITENTIARY LABWORK PE, FAILURE TO THRIVE PE, FAILURE TO THRIVE PE, FAILURE TO THRIVE PE, FAILURE TO THRIVE PENITENTIARY LABWORK Reason for Visit Uterine mass Endometrial adenocarcinoma Debility Pulmonary embolism Chief Complaint VAGINAL BLEEDING NEW-CERVICAL MASS MED ONC CERVICAL MASS 2WKS NO LABS REVIEW CT/PATH FRO [facility] PENITENTIARY LABWORK PE, FAILURE TO THRIVE PE, FAILURE TO THRIVE PE, FAILURE TO THRIVE PE, FAILURE TO THRIVE PENITENTIARY LABWORK PENITENTIARY LABWORK Reason for Visit Uterine mass Endometrial adenocarcinoma Debility Pulmonary embolism Chief Complaint VAGINAL BLEEDING NEW-CERVICAL MASS MED ONC CERVICAL MASS 2WKS NO LABS REVIEW CT/PATH FRO [facility] PENITENTIARY LABWORK PE, FAILURE TO THRIVE PE, FAILURE TO THRIVE PE, FAILURE TO THRIVE PE, FAILURE TO THRIVE PENITENTIARY LABWORK PENITENTIARY LABWORK DEBILITY/KAYLA Reason for Visit Uterine mass Endometrial adenocarcinoma Debility Pulmonary embolism Chief Complaint NEW-CERVICAL MASS MED ONC CERVICAL MASS 2WKS NO LABS REVIEW CT/PATH FRO [facility] PENITENTIARY LABWORK PE, FAILURE TO THRIVE PE, FAILURE TO THRIVE PE, FAILURE TO THRIVE PE, FAILURE TO THRIVE PENITENTIARY LABWORK PENITENTIARY LABWORK DEBILITY/KAYLA DEBILITY/KAYLA DEBILITY/KAYLA DEBILITY/KAYLA Reason for Visit Uterine mass Endometrial adenocarcinoma Debility Pulmonary embolism Debility Elevated troponin I level Lactic acidosis DM2 (diabetes mellitus, type 2) Chief Complaint PENITENTIARY LABWORK PE, FAILURE TO THRIVE PE, FAILURE TO THRIVE PE, FAILURE TO THRIVE PE, FAILURE TO THRIVE PENITENTIARY LABWORK PENITENTIARY LABWORK DEBILITY/KAYLA DEBILITY/KAYLA DEBILITY/KAYLA DEBILITY/KAYLA DEBILITY/KAYLA PENITENTIARY LABWORK PENITENTIARY LABWORK PENITENTIARY LAB WORK Reason for Visit Debility Pulmonary embolism Debility DM2 (diabetes mellitus, type 2) Elevated troponin I level Lactic acidosis Chief Complaint PENITENTIARY LABWORK PENITENTIARY LAB WORK Chief Complaint PENITENTIARY LAB WOR K 1 Y FU PENITENTIARY LAB WORK Reason for Visit Debility Endometrial adenocarcinoma Former smoker History of seizures Pulmonary embolism Vitamin D deficiency Bipolar disorder DM2 (diabetes mellitus, type 2) Type 1 diabetes mellitus Chief Complaint PENITENTIARY LAB WOR K 1 Y FU PENITENTIARY LAB WORK PENITENTIARY LAB WORK Reason for Visit Debility Endometrial adenocarcinoma Former smoker History of seizures Pulmonary embolism Vitamin D deficiency Bipolar disorder DM2 (diabetes mellitus, type 2) Type 1 diabetes mellitus Chief Complaint 1 Y FU PENITENTIARY LAB WORK PENITENTIARY LAB WORK PENITENTIARY LABWORK Reason for Visit Debility Endometrial adenocarcinoma Former smoker History of seizures Pulmonary embolism Vitamin D deficiency Bipolar disorder DM2 (diabetes mellitus, type 2) Type 1 diabetes mellitus Chief Complaint PENITENTIARY LAB WOR K 6 M FU gen illness Reason for Visit Debility Vitamin D deficiency Bipolar disorder Depression DM2 (diabetes mellitus, type 2) Chief Complaint PENITENTIARY LABWORK PENITENTIARY LABWORK Chief Complaint Admit Date LT Ankle Pain July 04, 2024 1 2:57pm PENITENTIARY LAB WORK July 09, 2024 4:00am ACUTE CYSTITIS, NEUROPATHIC PAIN OF LEFT FOOT AND October 09, 2024 9:56pm Reason for Visit Admit Date Debility July 04, 2024 1 2:57pm Obesity July 04, 2024 1 2:57pm Lymphedema July 04, 2024 1 2:57pm Type 1 diabetes mellitus July 04 025 12:57pm Pain of left heel July [...] Ankle Pain July 04, 2024 1 2:57pm PENITENTIARY LAB WORK July 09, 2024 4:00am ACUTE CYSTITIS, NEUROPATHIC PAIN OF LEFT FOOT AND October 09, 2024 9:56pm ACUTE CYSTITIS, NEUROPATHIC PAIN OF LEFT FOOT AND October 10, 2024 7:39am Chief Complaint Admit Date LABOWRK November 26, 2024 5:00 am PENITENTIARY LAB WORK December 04, 2024 4:0 0am LABOWRK January 21, 2025 5: 00am Additional Source Comments INFORMATION SOURCE (unrecogn ized section and content) DATE CREATED AUTHOR 08/31/2021 [facility] [place] DATE CREATED AUTHOR AUTHOR'S ORGANIZ ATION 12/01/2021 [facility] DATE CREATED AUTHOR AUTHOR'S ORGANIZ ATION 03/21/2025 [facility] Source Comments (unrecognize d section and content) In the event this informatio n is protected by the Federal Confidentiality of Alcohol and Drug Abuse Patient Records regulations: The Federal rules restrict any use of the information to criminally investigate or prosecute any alcohol or drug abuse patient.[facility] the event this information is protected by the Federal Confidentiality of Alcohol and Drug Abuse Patient Records regulations: The Federal rules restrict any use of the information to criminally investigate or prosecute any alcohol or drug abuse patient.[facility] Hospital[facility] the event this information is protected by the Federal Confidentiality of Alcohol and Drug Abuse Patient Records regulations: The Federal rules restrict any use of the information to criminally investigate or prosecute any alcohol or drug abuse patient.[facility] HospitalIn the event this information is protected by the Federal Confidentiality of Alcohol and Drug Abuse Patient Records regulations: The Federal rules restrict any use of the information to criminally investigate or prosecute any alcohol or drug abuse patient.[facility] Hospital[facility] the event this information is protected by the Federal Confidentiality of Alcohol and Drug Abuse Patient Records regulations: The Federal rules restrict any use of the information to criminally investigate or prosecute any alcohol or drug abuse patient.[facility] Reason for Visit (unrecogniz ed [...] Provider Active Sta rt: October 10, 2024 Team Status: Active Member Role/Relationship Status Dates Dr. Shayna Malhotra MD Primary care physician Active Team Status: Active Member Role/Relationship Status Dates Dr. Shayna Malhotra MD Primary care physician Active Start: November 26, 2024 Dr. Malathi ROSA MD Attending physician Active Start: November 26, 2024 Team Status: Inactive Member Role/Relationship Status Dates Dr. Shayna Malhotra MD Primary care physician Active Start: December 04, 2024 End: December 04, 2024 Dr. Malathi ROSA MD Attending physician Active Start: December 04, 2024 End: December 04, 2024 Dr. Malathi ROSA MD Referring Provider Active Start: December 04, 2024 End: December 04, 2024 Team Status: Active Member Role/Relationship Status Dates Dr. Shayna Malhotra MD Primary care physician Active Start: January 21, 2025 Dr. Malathi ROSA MD Attending physician Active Start: January 21, 2025 FOR RECORDS PERTAINING TO PATIENTS WHO ARE [...] BE BASED ON THE PRIMARY CLINICAL RECORDS. [facility] [employer] [facility]. provides no warranty or guarantee of the accuracy or completeness of information in this document.
[2025-04-01 07:51] LABS: Mucous, Urine 0 SEEN /hpf (<or=2+); Red Blood Cells-Urine 0 SEEN /hpf (0-5)
[2025-04-01 08:15] LABS: Color, Urine Yellow (Yellow); Glucose, Dipstick Normal (Normal); Ketone-Dipstick Negative (Negative); Leukocyte Esterase-Dipstick 100 /ul (Negative); Nitrite-Dipstick Positive (Negative); Occult Blood-Urine 10 /ul (Negative); Protein-Dipstick 30 mg/dl (Negative); Specific Gravity, Urine 1.020 (1.002-1.030); Urine Bilirubin Dipstick Negative (Negative)
[2025-04-01 08:20] LABS: Hematocrit 34.6 % (37-47); Hemoglobin 11.6 g/dL (12.0-15.0); Mean Corp Hgb Conc 33.5 g/dL (32-36); Mean Corpuscular Volume 90.6 fL (81-99); Mean Platelet Vol. 11.0 fl (6.2-12.0); Platelet Count 103 K/mm3 (150-450); RBC Distribution Width CV 14.6 % (11.6-14.6); RBC Distribution Width SD 48.3 fl (35.1-43.9); Red Blood Count 3.82 M/mm3 (4.2-5.4); White Blood Count 3.6 K/mm3 (4.4-11.0)
[2025-04-01 08:21] LABS: Squamous Epithelial Cells - UA 0-5 SEEN /hpf (5-10)
[2025-04-01 08:34] LABS: Anion Gap 10 (5-15); BUN 24 mg/dL (4-19); BUN/Creat Ratio 23.4 RATIO (10-20); Calcium,Total 9.4 mg/dL (7.6-11.0); Carbon Dioxide 25.7 mmol/L (21.0-32.0); Chloride 102 mmol/L (98-108); Glucose 214 mg/dL (70-99); Magnesium 2.3 mg/dL (1.5-2.2); Potassium 4.5 mmol/L (3.3-5.1)
== END ==
LOC: OLS.SWAL 05:00
PROVIDERS: PCP Internal Medicine; Visit Provider Internal Medicine
DX: N39.0 Urinary tract infection, site not specified (principal); E11.9 Type 2 diabetes mellitus without complications; G40.89 Other seizures; E78.5 Hyperlipidemia, unspecified
CPT/HCPCS: 36415; 80048; 81001; 82542; 83735; 85027; 87086; 87088; 87186

== ENCOUNTER → 2025-04-16 05:00 | Outpatient (REF) | payer MEDICARE, MEDICAID, SELFPAY ==
--- OUTSIDE RECORDS SUMMARY | 2025-04-16 04:27 | XMS RPT_ITS | CCD ---
Author Organization [facility] Care Team Providers Care Whiting Can Worker Name Role Phone Sena Cox NP Unavailable Johnny Richardson Unavailable Unavailable Unavailable [facility] Malhotra Primary Care [...] Shayna Malhotra Primary Care Provider Dr. Shayna Malohtra Attending Provider Marya LEAL, Dr. Corral Primary [...] LEAL, Dr. Corral Primary Care Physician [phone] Genoveva LEAL, Dr. Servin Attending Physician Unavail able Genoveva LEAL, Dr. Servin Referring Provider Unavaila ble Missael Hernandez Consulting Unavailable Marya, Shayna Primary Care Unavailable Missael Hernandez Admitting Unavailable Tyrell Page Attending Unavailable Tyrell Page Consulting Unavailable Marya, Shayna Primary Care Unavailable Gudla Noé ROSAthi Attending Unavailable Marya OLS, Shayna Attending Unavailable Marya, Shayna Primary Care Unavailable Shea Royal Attending Unavailable Marya, Shayna Primary Care Unavailable Tyrell Page Referring Unavailable Malathi Hyde Referring Unavailable Kitdla Malathi ROSA Attending Unavailable Marya, Shayna Primary Care Unavailable Gudla OLS, Malathi Attending Unavailable Marya, Shayna Primary Care Unavailable Marya OLS, Shayna Attending Unavailable Marya, Shayna Primary Care Unavailable Marya OLS, Shayna Referring Unavailable Marya OLS, Shayna Attending Unavailable Marya, Shayna Primary Care Unavailable de Armani, Misasel Consulting Unavailable Missael Hernandez Admitting Unavailable Marya, Shayan Primary Care Unavailable Tyrell Page Attending Unavailable Marya, Shayna Primary Care Unavailable [...] Unavailable Marya, Shayna Primary Care Unavailable Shayna Malhotra Attending Unavailable Missael Hernandez Attending Unavailable Allergies Allergy Classification Reported Allergen(s) Allergy Type Date of Onset Reaction(s) Facility (20 sources) Ciprofloxacin Drug Allergy 08-12-19 06 Shortness of Breath, Anaphylaxis [facility] (20 sources) Contrast media; Translations: [red dye] Drug Allergy 02-10-20 16 [facility] (5 sources) Fish Drug Allergy 02-10-20 16 [facility] (20 sources) metFORMIN Drug Allergy 11-21-19 17 Diarrhea, GI Upset, Vomiting [facility] (20 sources) paliperidone Drug Allergy 11-21-19 17 Rash [facility] (14 sources) Penicillins Drug Allergy 07-15-19 06 [facility] (20 sources) Shellfish; Translations: [shellfish derived] Drug Intolerance 02-29-20 19 Diarrhea, Vomiting [facility] (15 sources) Sulfonamides (Antibiotic) Drug Allergy 07-15-19 06 Rash [facility] (15 sources) Iodinated Contrast Media Drug Allergy 02-29-20 19 Rash [facility] (4 sources) Mold Extract Drug Allergy 09-08-19 [facility] (20 sources) Ciprofloxacin; Translations: [ciprofloxacin HCl] Drug Allergy 08-12-19 Anaphylaxis [facility] (19 sources) red (food color); Translations: [red (food color)] Allergy to substance 09-21-19 [facility] (1 source) Penicillins Drug Allergy 07-15-19 06 Rash [facility] (9 sources) Penicillins Allergy to substance 11-23-19 RASH AND ITCHING [facility] (9 sources) Sulfonamides (Antibiotic) Allergy to substance 11-23-19 RASH AND ITCHING [facility] (9 sources) Triiodobenzoic Acids Allergy to substance 11-23-19 Rash [facility] (1 source) Ciprofloxacin Drug Allergy 10-10-19 [facility] (1 source) metFORMIN Drug Allergy 10-10-19 [facility] (1 source) paliperidone Drug Allergy 10-10-19 [facility] (1 source) Penicillins Drug allergy (disorder) 10-10-19 [facility] (1 source) Sulfonamides (Antibiotic) Drug allergy (disorder) 10-10-19 [facility] (1 source) Iodinated Contrast Media Drug allergy (disorder) 10-10-19 [facility] Medications Current Medications Medication Drug Class(es) Dates Sig (Normalized) Sig (Original) acetaminophen 325 mg oral tablet (20 sources) Start: 09-07-2021 End: 09-21-2021 take 2 tablets by mouth every six hours acetaminophen (TYLENOL) 325 mg tablet Take 2 tablets by mouth every 6 hours for 14 days. 112 tablet 0 09/07/2021 09/21/2021 Active Start: 07-30-2021 take 1 tablet by [facility] every four hours as needed Acetaminophen (Tylenol) 325 mg tablet Active 325 MG PO EVERY 4 HOURS NEEDED July 30, 2021 4:00pm Start: 07-30-2021 take 1 tablet by mouth once Ac etaminophen (Tylenol) 325 mg tablet Active 325 MG PO ONCE July 30, 2021 4:00pm Start: 07-30-2021 take 2 tablets by [facility] every four hours as needed for pain Comment on above: Take 650 mg by mouth every 4 hours as needed. Take 2 tablets by mo [facility] every 6 hours for [...] D2 Compound Start: 09-20-2021 Start: 09-20-2021 take 04495 [IU] by m outh every other week Ergocalciferol (Vitamin D2) Active 15209 UNIT PO Q1September 19, 2021 11:00pm Take every 2 weeks on Mondays Start: 09-08-2017 End: 03-21-2020 Ergocalciferol (Vitamin D2) 50,000 unit capsule Discontinued 21434 U PO EVERY MONTH 10 September 08, 2017 12:00am March 21, 2020 2:54pm Start: 11-15-2014 End: 09-01-2021 take 1 capsule by mouth every week ergocalciferol, vitamin D2, (VITAMIN D) 50,000 unit capsule Take 1 capsule by mouth once each week. 4 capsule 12 11/15/2014 09/01/2021 Discontinued Comment on above: Take 1 capsule by mo uth once each week. glucose 0.4 mg/mg oral [...] SOPN Use 18 units daily. INSULIN GLARGINE [id number] Sena Cox BUSINESS STRATEGIST Comment on above: Inject 65 Units subc [...] Start: 02-10-2016 take 2 tablets by mo [facility] once daily at bedtime QUEtiapine XR (SEROQUEL XR) 300 mg 24 hr tablet Take 2 tablets by mouth daily at bedtime. 60 tablet 0 02/10/2016 Active Comment on above: Take 2 tablets by mo [facility] daily at bedtime. triamcinolone acetonide 1 mg [...] BLOOD (3 sources) Start: 10-26-2016 End: 01-26-2025 [facility] ULTRA BLUE STRP Check BG 4-5 times daily GLUCOSE BLOOD [id number] Sena Cox BUSINESS STRATEGIST 3 ml insulin detemir 100 unt/ml pen [...] tablet Discontinued 100 mg PO DAILY 30 February 28, 2019 12:00am November 22, 2021 6:36pm Comment on above: Take 1 tablet by lucio once daily. LANCETS (3 sources) Start: 10-26-2016 ONETOUCH [facility] Use to check blood glucose up to 4 times daily. [id number] Sena Alcon Cxo BUSINESS STRATEGIST mag hydrox/aluminum hyd/simeth (ANTACID SUSPENSION ORAL) (5 [...] Active Comment on above: twice daily. nystatin 892137 unt/ml oral suspension (17 sources) Polyene Antifungal [...] November 23, 2021 11:00pm polyethylene glycol 3350 48818 mg powder for oral solution (9 sources) [...] shows localized disease. Has been referred to [facility] at [facility] and has appt on 08/21/2021.Discussed management of [...] Essential hypertension; Translations: [Essential (primary) hypertension] Onset: 04-09-2025 Chronic Fluid and electrolyte disorders (15 sources) [...] 09-04-2014 09-04-2014 Episodic Other aftercare (1 source) intermediate card tender (current) use of insulin; Translations: [intermediate card tender (current) use of insulin] Onset: 10-11-2024 Episodic [...] ear; Translations: [Impacted cerumen, right ear] Onset: 12-23-2024 Episodic Other liver diseases (5 sources) Enzyme [...] Test Name Value Interpretation Reference Range Facility Lamotrigine (Lamictal) Level on 04-04-2025 LAMOTRIGINE 8.1 ug/mL Normal 2.0-20.0 [facility] Comment on above: Result Comment: Dete ction Limit = 1.0 Performed at: [address] [id number] Plasma Table Operator: Cody Llanos MD, Phone: [phone] Performed By: #### L [id number], L506.1000, L501.9985, L100.0100 #### [facility] [address] [place], [place], [id number] Urine Cultureon 04-03-2025 [facility] Presumptive E. coli Wake Count >100,000 Presumptive E. coli: REACTION Ampicillin Islt TRANG >=32 Ampicillin+Sulbac Islt TRANG 16 I Cefepime Islt TRANG <=0.12 S cefTRIAXone Islt TRANG <=0.25 S Ciprofloxacin Islt TRANG <=0.06 S B-Lactamase Extended Susc Islt NEG Gentamicin Islt TRANG <=1 S levoFLOXacin Islt TRANG <=0.12 S Meropenem Islt TRANG <=0.25 S Nitrofurantoin Islt TRANG <=16 S Pip+Tazo Islt TRANG <=4 S TMP SMX Islt TRANG <=20 S Normal [facility] Comment on above: Performed By: #### L [id number], L506.1000, L501.9985, L100.0100 #### [facility] [address] [place], [address] Basic Metabolic Profile (BMP )on 04-01-2025 BUN/CRE 23.4 RATIO High 10-20 [facility] Comment on above: Performed By: #### L 501.080 #### [facility] [address] [place], [address] Calcium [Mass/Vol] 9.4 mg/dL Normal 7.6-11.0 [facility] Comment on above: Performed By: #### L 501.080 #### [facility] [address] [place], [address] Chloride [Moles/Vol] 102 mmol/L Normal 98-108 [facility] Comment on above: Performed By: #### L [id number] #### [facility] [address] [place], [address] CO2 [Moles/Vol] 25.7 mmol/L Normal 21.0-32.0 [facility] Comment on above: Performed By: #### L [id number] #### [facility] [address] [place], [address] Creatinine [Mass/Vol] 1.04 mg/dL Normal 0.70-1.20 [facility] Comment on above: Performed By: #### L [id number] #### [facility] [address] [place], [address] GAP 10 Normal 5-15 [facility] Comment on above: Performed By: #### L 501.080 #### [facility] [address] [place], [address] GFR/1.73 sq M.predicted among non-blacks MDRD (S/P/Bld) [Vol rate/Area] 57 mL/min/{1.73_m2} Low >60 [facility] Comment on above: Result Comment: mL/m in/1.73m2 CKD-EPI Creatinine Equation (2020) Performed By: #### L 501.080 #### [facility] [address] [place], [address] Glucose [Mass/Vol] 214 mg/dL High 70-99 [facility] Comment on above: Performed By: #### L 501.080 #### [facility] [address] [place], [address] Potassium [Moles/Vol] 4.5 mmol/L Normal 3.3-5.1 [facility] Comment on above: Performed By: #### L 501.080 #### [facility] [address] [place], [address] Sodium [Moles/Vol] 138 mmol/L Normal 133-145 [facility] Comment on above: Performed By: #### L [id number] #### [facility] [address] [place], [address] Urea nitrogen [Mass/Vol] 24 mg/dL High 4-19 [facility] Comment on above: Performed By: #### L 501.080 #### [facility] [address] [place], [address] CBC-Complete Blood Cnt No Di ffon 04-01-2025 Erythrocyte distribution width (RBC) [Ratio] 14.6 % Normal 11.6-14.6 [facility] Comment on above: Performed By: #### L 501.080 #### [facility] [address] [place], [address] Hematocrit (Bld) [Volume fraction] 34.6 % Low 37-47 [facility] Comment on above: Performed By: #### L 501.080 #### [facility] [address] [place], [address] Hemoglobin (Bld) [Mass/Vol] 11.6 g/dL Low 12.0-15.0 [facility] Comment on above: Performed By: #### L 501.080 #### [facility] [address] [place], [address] MCH (RBC) [Entitic mass] 30.4 pg Normal 27.0-32.0 [facility] Comment on above: Performed By: #### L [id number] #### [facility] [address] [place], [address] MCHC (RBC) [Mass/Vol] 33.5 g/dL Normal 32-36 [facility] Comment on above: Performed By: #### L [id number] #### [facility] [address] [place], [address] MCV (RBC) [Entitic vol] 90.6 fL Normal 81-99 [facility] Comment on above: Performed By: #### L [id number] #### [facility] [address] [place], [address] Platelet mean volume (Bld) [Entitic vol] 11.0 fL Normal 6.2-12.0 [facility] Comment on above: Performed By: #### L [id number] #### [facility] [address] [place], [address] Platelets (Bld) [#/Vol] 103 10*3/uL Low 150-450 [facility] Comment on above: Performed By: #### L 501.080 #### [facility] [address] [place], [address] RBC (Bld) [#/Vol] 3.82 10*6/uL Low 4.2-5.4 [facility] Comment on above: Performed By: #### L 501.080 #### [facility] [address] [place], [address] RDW SD 48.3 fl High 35.1-43.9 [facility] Comment on above: Performed By: #### L 501.080 #### [facility] [address] [place], [address] WBC (Bld) [#/Vol] 3.6 10*3/uL Low 4.4-11.0 [facility] Comment on above: Performed By: #### L 501.080 #### [facility] [address] [place], [address] Magnesiumon 04-01-2025 Magnesium [Mass/Vol] 2.3 mg/dL High 1.5-2.2 [facility] Comment on above: Performed By: #### L 501.080 #### [facility] [address] [place], [address] Urinalysis, Completeon 04-01 BACTERIA 2+ /hpf Normal None Seen [facility] Comment on above: Order Comment: CLEAN CATCH Performed By: #### L 501.080 #### [facility] [address] [place], [address] EPI,SQUAMOUS 0-5 SEEN Normal 5-10 [facility] Comment on above: Order Comment: CLEAN CATCH Performed By: #### L 501.080 #### [facility] [address] [place], [address] WBC 10-25 SEEN Normal 0-5 [facility] Comment on above: Order Comment: CLEAN CATCH Performed By: #### L 501.080 #### [facility] [address] [place], [address] Mucus Ql (Urine sed) 0 SEEN Normal [facility] Comment on above: Order Comment: CLEAN CATCH Performed By: #### L 501.080 #### [facility] [address] [place], [address] RBC 0 SEEN Normal 0-5 [facility] Comment on above: Order Comment: CLEAN CATCH Performed By: #### L 501.080 #### [facility] [address] [place], [address] Basic Metabolic Profile (BMP )on 03-20-2025 BUN/CRE 20.6 RATIO High 03-25 [facility] Comment on above: Order Comment: 134 Performed By: #### L [id number], L506.1000, L501.9985, L100.0100 #### [facility] [address] [place], [address] Calcium [Mass/Vol] 9.7 mg/dL Normal 7.6-11.0 [facility] Comment on above: Order Comment: 134 Performed By: #### L 500.4050, L506.1000, L501.9985, L100.0100 #### [facility] [address] [place], [address] Chloride [Moles/Vol] 103 mmol/L Normal 98-108 [facility] Comment on above: Order Comment: 134 Performed By: #### L 500.4050, L506.1000, L501.9985, L100.0100 #### [facility] [address] [place], [address] CO2 [Moles/Vol] 21.4 mmol/L Normal 21.0-32.0 [facility] Comment on above: Order Comment: 134 Performed By: #### L 500.4050, L506.1000, L501.9985, L100.0100 #### [facility] [address] [place], [address] Creatinine [Mass/Vol] 1.15 mg/dL Normal 0.70-1.20 [facility] Comment on above: Order Comment: 134 Performed By: #### L 500.4050, L506.1000, L501.9985, L100.0100 #### [facility] [address] [place], [address] GAP 13 Normal 5-15 [facility] Comment on above: Order Comment: 134 Performed By: #### L 500.4050, L506.1000, L501.9985, L100.0100 #### [facility] [address] [place], [address] GFR/1.73 sq M.predicted among non-blacks MDRD (S/P/Bld) [Vol rate/Area] 51 mL/min/{1.73_m2} Low >60 [facility] Comment on above: Order Comment: 134 Result Comment: mL/m in/1.73m2 CKD-EPI Creatinine Equation (2020) Performed By: #### L 500.4050, L506.1000, L501.9985, L100.0100 #### [facility] [address] [place], [address] Glucose [Mass/Vol] 224 mg/dL High 70-99 [facility] Comment on above: Order Comment: 134 Performed By: #### L 500.4050, L506.1000, L501.9985, L100.0100 #### [facility] [address] [place], [address] Potassium [Moles/Vol] 4.7 mmol/L Normal 3.3-5.1 [facility] Comment on above: Order Comment: 134 Result Comment: Hemo lysis present, Results??could be affected. ?? Performed By: #### L 500.4050, L506.1000, L501.9985, L100.0100 #### [facility] [address] [place], [address] Sodium [Moles/Vol] 137 mmol/L Normal 133-145 [facility] Comment on above: Order Comment: 134 Performed By: #### L 500.4050, L506.1000, L501.9985, L100.0100 #### [facility] [address] [place], [address] Urea nitrogen [Mass/Vol] 24 mg/dL High 4-19 [facility] Comment on above: Order Comment: 134 Performed By: #### L 500.4050, L506.1000, L501.9985, L100.0100 #### [facility] [address] [place], [address] CBC-Complete Blood Cnt No Di ffon 03-20-2025 Erythrocyte distribution width (RBC) [Ratio] 14.8 % High 11.6-14.6 [facility] Comment on above: Order Comment: 134 Performed By: #### L 500.4050, L506.1000, L501.9985, L100.0100 #### [facility] [address] [place], [address] Hematocrit (Bld) [Volume fraction] 35.8 % Low 37-47 [facility] Comment on above: Order Comment: 134 Performed By: #### L 500.4050, L506.1000, L501.9985, L100.0100 #### [facility] [address] [place], [address] Hemoglobin (Bld) [Mass/Vol] 11.8 g/dL Low 12.0-15.0 [facility] Comment on above: Order Comment: 134 Performed By: #### L 500.4050, L506.1000, L501.9985, L100.0100 #### [facility] [address] [place], [address] MCH (RBC) [Entitic mass] 29.9 pg Normal 27.0-32.0 [facility] Comment on above: Order Comment: 134 Performed By: #### L 500.4050, L506.1000, L501.9985, L100.0100 #### [facility] [address] [place], [address] MCHC (RBC) [Mass/Vol] 33.0 g/dL Normal 32-36 [facility] Comment on above: Order Comment: 134 Performed By: #### L 500.4050, L506.1000, L501.9985, L100.0100 #### [facility] [address] [place], [address] MCV (RBC) [Entitic vol] 90.6 fL Normal 81-99 [facility] Comment on above: Order Comment: 134 Performed By: #### L 500.4050, L506.1000, L501.9985, L100.0100 #### [facility] [address] [place], [address] Platelet mean volume (Bld) [Entitic vol] 11.3 fL Normal 6.2-12.0 [facility] Comment on above: Order Comment: 134 Performed By: #### L 500.4050, L506.1000, L501.9985, L100.0100 #### [facility] [address] [place], [address] Platelets (Bld) [#/Vol] 103 10*3/uL Low 150-450 [facility] Comment on above: Order Comment: 134 Performed By: #### L 500.4050, L506.1000, L501.9985, L100.0100 #### [facility] [address] [place], [address] RBC (Bld) [#/Vol] 3.95 10*6/uL Low 4.2-5.4 [facility] Comment on above: Order Comment: 134 Performed By: #### L 500.4050, L506.1000, L501.9985, L100.0100 #### [facility] [address] [place], [address] RDW SD 49.4 fl High 35.1-43.9 [facility] Comment on above: Order Comment: 134 Performed By: #### L 500.4050, L506.1000, L501.9985, L100.0100 #### [facility] [address] [place], [address] WBC (Bld) [#/Vol] 3.7 10*3/uL Low 4.4-11.0 [facility] Comment on above: Order Comment: 134 Performed By: #### L 500.4050, L506.1000, L501.9985, L100.0100 #### [facility] [address] [place], [address] Hemoglobin A1con 03-20-2025 HbA1c (Bld) [Mass fraction] 7.1 % High <=5.6 [facility] Comment on above: Order Comment: 134 Result Comment: Norm al < 5.7 % Prediabetic 5.7 - 6.4 % Diabetic >or= 6.5 % Please note range changes. Performed By: #### L 500.4050, L506.1000, L501.9985, L100.0100 #### [facility] [address] [place], [address] Pro- Brain NATRIURETIC PEPTI Oskar 03-20-2025 Natriuretic peptide B (Bld) [Mass/Vol] 133 pg/mL Normal <=900 [facility] Comment on above: Order Comment: 134 Result Comment: Hear t Failure Unlikely: < 300 pg/mL Heart Failure Likely < 50 Years: > 450 pg/mL 50-75 Years: > 900 pg/mL >75 Years: > 1800 pg/mL Performed By: #### L 500.4050, L506.1000, L501.9985, L100.0100 #### [facility] [address] [place], [address] Magnesiumon 01-23-2025 Magnesium [Mass/Vol] 2.1 mg/dL Normal 1.5-2.2 [facility] Comment on above: Order Comment: 134 Performed By: #### L 500.4050, L506.1000, L501.9985, L100.0100 #### [facility] [address] [place], [address] Anion gap in Serum or Plasma Ordered By: Malathi Tomas on 01-21-2025 Anion gap [Moles/Vol] 13 mmol/L 5-15 [facility] BUN/creatinine ratioOrdered By: Malathi Tomas on 01-21-2025 Urea nitrogen/Creatinine [Mass ratio] 23.4 mg/mg High 10- [facility] Basic Metabolic Profile (BMP )on 01-21-2025 BUN/CRE 23.4 RATIO High - [facility] Comment on above: Order Comment: 134 Performed By: #### L 500.4050, L506.1000, L501.9985, L100.0100 #### [facility] [address] [place], [address] Calcium [Mass/Vol] 9.2 mg/dL Normal 7.6-11.0 [facility] Comment on above: Order Comment: 134 Performed By: #### L 500.4050, L506.1000, L501.9985, L100.0100 #### [facility] [address] [place], [address] Chloride [Moles/Vol] 103 mmol/L Normal 98-108 [facility] Comment on above: Order Comment: 134 Performed By: #### L 500.4050, L506.1000, L501.9985, L100.0100 #### [facility] [address] [place], [address] CO2 [Moles/Vol] 20.8 mmol/L Low 21.0-32.0 [facility] Comment on above: Order Comment: 134 Performed By: #### L 500.4050, L506.1000, L501.9985, L100.0100 #### [facility] [address] [place], [address] Creatinine [Mass/Vol] 1.01 mg/dL Normal 0.70-1.20 [facility] Comment on above: Order Comment: 134 Performed By: #### L 500.4050, L506.1000, L501.9985, L100.0100 #### [facility] [address] [place], [address] GAP 13 Normal 5-15 [facility] Comment on above: Order Comment: 134 Performed By: #### L 500.4050, L506.1000, L501.9985, L100.0100 #### [facility] [address] [place], [address] GFR/1.73 sq M.predicted among non-blacks MDRD (S/P/Bld) [Vol rate/Area] 59 mL/min/{1.73_m2} Low >60 [facility] Comment on above: Order Comment: 134 Result Comment: mL/m in/1.73m2 CKD-EPI Creatinine Equation (2020) Performed By: #### L 500.4050, L506.1000, L501.9985, L100.0100 #### [facility] [address] [place], [address] Glucose [Mass/Vol] 164 mg/dL High 70-99 [facility] Comment on above: Order Comment: 134 Performed By: #### L 500.4050, L506.1000, L501.9985, L100.0100 #### [facility] [address] [place], [address] Potassium [Moles/Vol] 4.8 mmol/L Normal 3.3-5.1 [facility] Comment on above: Order Comment: 134 Performed By: #### L 500.4050, L506.1000, L501.9985, L100.0100 #### [facility] [address] [place], [address] Sodium [Moles/Vol] 137 mmol/L Normal 133-145 [facility] Comment on above: Order Comment: 134 Performed By: #### L 500.4050, L506.1000, L501.9985, L100.0100 #### [facility] [address] [place], [address] Urea nitrogen [Mass/Vol] 24 mg/dL High 4-19 [facility] Comment on above: Order Comment: 134 Performed By: #### L 500.4050, L506.1000, L501.9985, L100.0100 #### [facility] [address] [place], [address] Carbon dioxide, total [Moles /volume] in Central venous bloodOrdered By: Malathi Tomas on 01-21-2025 CO2 [Moles/Vol] 20.8 mmol/L Low 21.0-32.0 [facility] Chloride assayOrdered By: Tao Tomas on 01-21-2025 Chloride [Moles/Vol] 103 mmol/L 98-108 [facility] Glomerular filtration rate ( GFR) estimation/1.73 sq m using serum, plasma, or whole bOrdered By: Malathi Tomas on 01-21-2025 GFR/1.73 sq M.predicted among non-blacks MDRD (S/P/Bld) [Vol rate/Area] 59 mL/min/{1.73_m2} Low >60 [facility] Comment on above: mL/min/1.73m2 CKD-EP I Creatinine Equation (2020) Magnesium measurement (mass/ volume)Ordered By: Malathi Tomas on 01-21-2025 Magnesium (Unsp spec) [Mass/Vol] 2.1 mg/dL 1.5-2.2 [facility] Natriuretic peptide.B prohor magi N-Terminal [Mass/volume] in Serum or PlasmaOrdered By: Malathi Tomas on 01-21-2025 Natriuretic peptide.B prohormone N-Terminal [Mass/Vol] 260 pg/mL <900 [facility] Comment on above: Heart Failure Unlike ly: < 300 pg/mLHeart Failure Likely< 50 Years: > 450 pg/mL50-75 Years: > 900 pg/mL>75 Years: > 1800 pg/mL Potassium measurement (mass/ volume)Ordered By: Malathi Tomas on 01-21-2025 Potassium (Unsp spec) [Mass/Vol] 4.8 mmol/L 3.3-5.1 [facility] Pro- Brain NATRIURETIC PEPTI Oskar 01-21-2025 Natriuretic peptide B (Bld) [Mass/Vol] 260 pg/mL Normal <=900 [facility] Comment on above: Order Comment: 134 Result Comment: Hear t Failure Unlikely: < 300 pg/mL Heart Failure Likely < 50 Years: > 450 pg/mL 50-75 Years: > 900 pg/mL >75 Years: > 1800 pg/mL Performed By: #### L 500.4050, L506.1000, L501.9985, L100.0100 #### [facility] [address] [place], [address] Serum creatinine measurement (mass/volume)Ordered By: Malathi Tomas on 01-21-2025 Creatinine [Mass/Vol] 1.01 mg/dL 0.70-1.20 [facility] Serum glucose measurement (m ass/volume)Ordered By: Malathi Tomas on 01-21-2025 Glucose [Mass/Vol] 164 mg/dL High 70-99 [facility] Serum or plasma calcium kim urement (mass/volume)Ordered By: Malathi Tomas on 01-21-2025 Calcium [Mass/Vol] 9.2 mg/dL 7.6-11.0 [facility] Serum or plasma urea nitroge n measurement (mass/volume)Ordered By: Malathi Tomas on 01-21-2025 Urea nitrogen [Mass/Vol] 24 mg/dL High 4-19 [facility] Sodium levelOrdered By: Marie Tomas on 01-21-2025 Sodium [Moles/Vol] 137 mmol/L 133-145 [facility] Anion gap in Serum or Plasma Ordered By: Malathi Tomas on 12-04-2024 Anion gap [Moles/Vol] 10 mmol/L 5-15 [facility] BUN/creatinine ratioOrdered By: Malathi Tomas on 12-04-2024 Urea nitrogen/Creatinine [Mass ratio] 22.2 mg/mg High 03-25 [facility] Basic Metabolic Profile (BMP )on 12-04-2024 BUN/CRE 22.2 RATIO High 03-25 [facility] Comment on above: Order Comment: N Performed By: #### L 506.0200 #### [facility] [address] [place], [address] Calcium [Mass/Vol] 9.4 mg/dL Normal 7.6-11.0 [facility] Comment on above: Order Comment: N Performed By: #### L 506.0200 #### [facility] [address] [place], [address] Chloride [Moles/Vol] 103 mmol/L Normal 98-108 [facility] Comment on above: Order Comment: N Performed By: #### L 506.0200 #### [facility] [address] [place], [address] CO2 [Moles/Vol] 23.5 mmol/L Normal 21.0-32.0 [facility] Comment on above: Order Comment: N Performed By: #### L 506.0200 #### [facility] [address] [place], [address] Creatinine [Mass/Vol] 1.13 mg/dL Normal 0.70-1.20 [facility] Comment on above: Order Comment: N Performed By: #### L 506.0200 #### [facility] [address] [place], [address] GAP 10 Normal - [facility] Comment on above: Order Comment: N Performed By: #### L 506.0200 #### [facility] [address] [place], [address] GFR/1.73 sq M.predicted among non-blacks MDRD (S/P/Bld) [Vol rate/Area] 52 mL/min/{1.73_m2} Low >60 [facility] Comment on above: Order Comment: N Result Comment: mL/m in/1.73m2 CKD-EPI Creatinine Equation (2020) Performed By: #### L 506.0200 #### [facility] [address] [place], [address] Glucose [Mass/Vol] 83 mg/dL Normal 70-99 [facility] Comment on above: Order Comment: N Performed By: #### L 506.0200 #### [facility] [address] [place], [address] Potassium [Moles/Vol] 5.1 mmol/L Normal 3.3-5.1 [facility] Comment on above: Order Comment: N Result Comment: Hemo lysis present, Results??could be affected. ?? Performed By: #### L 506.0200 #### [facility] [address] [place], [address] Sodium [Moles/Vol] 136 mmol/L Normal 133-145 [facility] Comment on above: Order Comment: N Performed By: #### L 506.0200 #### [facility] [address] [place], [address] Urea nitrogen [Mass/Vol] 25 mg/dL High 4-19 [facility] Comment on above: Order Comment: N Performed By: #### L 506.0200 #### [facility] [address] [place], [address] CBC-Complete Blood Cnt No Di ffon 12-04-2024 Erythrocyte distribution width (RBC) [Ratio] 16.2 % High 11.6-14.6 [facility] Comment on above: Order Comment: N Performed By: #### L 506.0200 #### [facility] [address] [place], [address] Hematocrit (Bld) [Volume fraction] 33.8 % Low 37-47 [facility] Comment on above: Order Comment: N Performed By: #### L 506.0200 #### [facility] [address] [place], [address] Hemoglobin (Bld) [Mass/Vol] 11.2 g/dL Low 12.0-15.0 [facility] Comment on above: Order Comment: N Performed By: #### L 506.0200 #### [facility] [address] [place], [address] MCH (RBC) [Entitic mass] 29.3 pg Normal 27.0-32.0 [facility] Comment on above: Order Comment: N Performed By: #### L 506.0200 #### [facility] [address] [place], [address] MCHC (RBC) [Mass/Vol] 33.1 g/dL Normal 32-36 [facility] Comment on above: Order Comment: N Performed By: #### L 506.0200 #### [facility] [address] [place], [address] MCV (RBC) [Entitic vol] 88.5 fL Normal 81-99 [facility] Comment on above: Order Comment: N Performed By: #### L 506.0200 #### [facility] [address] [place], [address] Platelet mean volume (Bld) [Entitic vol] 11.2 fL Normal 6.2-12.0 [facility] Comment on above: Order Comment: N Performed By: #### L 506.0200 #### [facility] [address] [place], [address] Platelets (Bld) [#/Vol] 119 10*3/uL Low 150-450 [facility] Comment on above: Order Comment: N Performed By: #### L 506.0200 #### [facility] [address] [place], [address] RBC (Bld) [#/Vol] 3.82 10*6/uL Low 4.2-5.4 [facility] Comment on above: Order Comment: N Performed By: #### L 506.0200 #### [facility] [address] [place], [address] RDW SD 52.9 fl High 35.1-43.9 [facility] Comment on above: Order Comment: N Performed By: #### L 506.0200 #### [facility] [address] [place], [address] WBC (Bld) [#/Vol] 3.1 10*3/uL Low 4.4-11.0 [facility] Comment on above: Order Comment: N Performed By: #### L 506.0200 #### [facility] [address] [place], [address] Carbon dioxide, total [Moles /volume] in Central venous bloodOrdered By: Malathi Tomas on 12-04-2024 CO2 [Moles/Vol] 23.5 mmol/L 21.0-32.0 [facility] Chloride assayOrdered By: Tao Tomas on 12-04-2024 Chloride [Moles/Vol] 103 mmol/L 98-108 [facility] Erythrocyte distribution wid th ratioOrdered By: Malathi Tomas on 12-04-2024 Erythrocyte distribution width (RBC) [Ratio] 16.2 % High 11.6-14.6 [facility] Erythrocyte distribution wid th standard deviationOrdered By: Malathi Tomas on 12-04-2024 Erythrocyte distribution width (RBC) [Ratio] 52.9 fl High 35.1-43.9 [facility] Glomerular filtration rate ( GFR) estimation/1.73 sq m using serum, plasma, or whole bOrdered By: Malathi Tomas on 07-01-2025 GFR/1.73 sq M.predicted among non-blacks MDRD (S/P/Bld) [Vol rate/Area] 52 mL/min/{1.73_m2} Low >60 [facility] Comment on above: mL/min/1.73m2 CKD-EP I Creatinine Equation (2020) Hematocrit Auto (Bld) [Volum e fraction]Ordered By: Malathi Tomas on 12-04-2024 Hematocrit (Bld) [Volume fraction] 33.8 % Low 37-47 [facility] Hemoglobin measurementOrdere d By: Malathi Tomas on 12-04-2024 Hemoglobin (Bld) [Mass/Vol] 11.2 g/dL Low 12.0-15.0 [facility] MCV (mean corpuscular volume ) determinationOrdered By: Malathi Tomas on 12-04-2024 MCV (RBC) [Entitic vol] 88.5 fL 81-99 [facility] Magnesiumon 12-04-2024 Magnesium [Mass/Vol] 2.3 mg/dL High 1.5-2.2 [facility] Comment on above: Order Comment: N Performed By: #### L 506.0200 #### [facility] [address] [place] [address], [id number] Magnesium measurement (mass/ volume)Ordered By: Malathi Tomas on 12-04-2024 Magnesium (Unsp spec) [Mass/Vol] 2.3 mg/dL High 1.5-2.2 [facility] Mean corpuscular hemoglobin (MCH) determinationOrdered By: Malathi Tomas on 12-04-2024 MCH (RBC) [Entitic mass] 29.3 pg 27.0-32.0 [facility] Mean corpuscular hemoglobin concentration (MCHC) determinationOrdered By: Malathi Tomas on 12-04-2024 MCHC (RBC) [Mass/Vol] 33.1 g/dL 32-36 [facility] Mean platelet volume determi nationOrdered By: Malathi Tomas on 12-04-2024 Platelet mean volume (Bld) [Entitic vol] 11.2 fL 6.2-12.0 [facility] Platelet countOrdered By: Tao Tomas on 12-04-2024 Platelets (Bld) [#/Vol] 119 10*3/uL Low 150-450 [facility] Potassium measurement (mass/ volume)Ordered By: Malathi Tomas on 12-04-2024 Potassium (Unsp spec) [Mass/Vol] 5.1 mmol/L 3.3-5.1 [facility] Comment on above: Hemolysis present, R esults could be affected. RBC Auto (Bld) [#/Vol]Ordere d By: Malathi Tomas on 12-04-2024 RBC (Bld) [#/Vol] 3.82 10*6/uL Low 4.2-5.4 [facility] Serum creatinine measurement (mass/volume)Ordered By: Malathi Tomas on 12-04-2024 Creatinine [Mass/Vol] 1.13 mg/dL 0.70-1.20 [facility] Serum glucose measurement (m ass/volume)Ordered By: Malathi Tomas on 12-04-2024 Glucose [Mass/Vol] 83 mg/dL 70-99 [facility] Serum or plasma calcium kim urement (mass/volume)Ordered By: Malathi Tomas on 12-04-2024 Calcium [Mass/Vol] 9.4 mg/dL 7.6-11.0 [facility] Serum or plasma urea nitroge n measurement (mass/volume)Ordered By: Malathi Tomas on 12-04-2024 Urea nitrogen [Mass/Vol] 25 mg/dL High 4-19 [facility] Sodium levelOrdered By: Marie Tomas on 12-04-2024 Sodium [Moles/Vol] 136 mmol/L 133-145 [facility] White blood cell (WBC) count Ordered By: Malathi Tomas on 12-04-2024 WBC (Bld) [#/Vol] 3.1 10*3/uL Low 4.4-11.0 [facility] Anion gap in Serum or Plasma Ordered By: Malathi Tomas on 11-26-2024 Anion gap [Moles/Vol] 12 mmol/L 5-15 [facility] BUN/creatinine ratioOrdered By: Malathi Tomas on 11-26-2024 Urea nitrogen/Creatinine [Mass ratio] 19.5 mg/mg - [facility] Basic Metabolic Profile (BMP )on 11-26-2024 BUN/CRE 19.5 RATIO Normal 03-25 [facility] Comment on above: Order Comment: 134 Performed By: #### L 500.4050, L506.1000, L501.9985, L100.0100 #### [facility] [address] [place], [address] Calcium [Mass/Vol] 9.3 mg/dL Normal 7.6-11.0 [facility] Comment on above: Order Comment: 134 Performed By: #### L 500.4050, L506.1000, L501.9985, L100.0100 #### [facility] [address] [place], [address] Chloride [Moles/Vol] 106 mmol/L Normal 98-108 [facility] Comment on above: Order Comment: 134 Performed By: #### L 500.4050, L506.1000, L501.9985, L100.0100 #### [facility] [address] [place], [address] CO2 [Moles/Vol] 22.9 mmol/L Normal 21.0-32.0 [facility] Comment on above: Order Comment: 134 Performed By: #### L 500.4050, L506.1000, L501.9985, L100.0100 #### [facility] [address] [place], [address] Creatinine [Mass/Vol] 0.95 mg/dL Normal 0.70-1.20 [facility] Comment on above: Order Comment: 134 Performed By: #### L 500.4050, L506.1000, L501.9985, L100.0100 #### [facility] [address] [place], [address] GAP 12 Normal 5-15 [facility] Comment on above: Order Comment: 134 Performed By: #### L 500.4050, L506.1000, L501.9985, L100.0100 #### [facility] [address] [place], [address] GFR/1.73 sq M.predicted among non-blacks MDRD (S/P/Bld) [Vol rate/Area] 64 mL/min/{1.73_m2} Normal >60 [facility] Comment on above: Order Comment: 134 Result Comment: mL/m in/1.73m2 CKD-EPI Creatinine Equation (2020) Performed By: #### L 500.4050, L506.1000, L501.9985, L100.0100 #### [facility] [address] [place], [address] Glucose [Mass/Vol] 89 mg/dL Normal 70-99 [facility] Comment on above: Order Comment: 134 Performed By: #### L 500.4050, L506.1000, L501.9985, L100.0100 #### [facility] [address] [place], [address] Potassium [Moles/Vol] 4.5 mmol/L Normal 3.3-5.1 [facility] Comment on above: Order Comment: 134 Performed By: #### L 500.4050, L506.1000, L501.9985, L100.0100 #### [facility] [address] [place], [address] Sodium [Moles/Vol] 140 mmol/L Normal 133-145 [facility] Comment on above: Order Comment: 134 Performed By: #### L 500.4050, L506.1000, L501.9985, L100.0100 #### [facility] [address] [place], [address] Urea nitrogen [Mass/Vol] 18 mg/dL Normal 4-19 [facility] Comment on above: Order Comment: 134 Performed By: #### L 500.4050, L506.1000, L501.9985, L100.0100 #### [facility] [address] [place], [place], [address] Carbon dioxide, total [Moles /volume] in Central venous bloodOrdered By: Malathi Tomas on 11-26-2024 CO2 [Moles/Vol] 22.9 mmol/L 21.0-32.0 [facility] Chloride assayOrdered By: Tao Tomas on 11-26-2024 Chloride [Moles/Vol] 106 mmol/L 98-108 [facility] Glomerular filtration rate ( GFR) estimation/1.73 sq m using serum, plasma, or whole bOrdered By: Malathi Tomas on 11-26-2024 GFR/1.73 sq M.predicted among non-blacks MDRD (S/P/Bld) [Vol rate/Area] 64 mL/min/{1.73_m2} >60 [facility] Comment on above: mL/min/1.73m2 CKD-EP I Creatinine Equation (2020) Magnesiumon 11-26-2024 Magnesium [Mass/Vol] 2.2 mg/dL Normal 1.5-2.2 [facility] Comment on above: Order Comment: 134 Performed By: #### L 500.4050, L506.1000, L501.9985, L100.0100 #### [facility] [address] [place], [place], [address] Magnesium measurement (mass/ volume)Ordered By: Malathi Tomas on 11-26-2024 Magnesium (Unsp spec) [Mass/Vol] 2.2 mg/dL 1.5-2.2 [facility] Potassium measurement (mass/ volume)Ordered By: Malathi Tomas on 11-26-2024 Potassium (Unsp spec) [Mass/Vol] 4.5 mmol/L 3.3-5.1 [facility] Serum creatinine measurement (mass/volume)Ordered By: Malathi Tomas on 11-26-2024 Creatinine [Mass/Vol] 0.95 mg/dL 0.70-1.20 [facility] Serum glucose measurement (m ass/volume)Ordered By: Malathi Tomas on 11-26-2024 Glucose [Mass/Vol] 89 mg/dL 70-99 [facility] Serum or plasma calcium kim urement (mass/volume)Ordered By: Malathi Tomas on 11-26-2024 Calcium [Mass/Vol] 9.3 mg/dL 7.6-11.0 [facility] Serum or plasma urea nitroge n measurement (mass/volume)Ordered By: Malathi Tomas on 11-26-2024 Urea nitrogen [Mass/Vol] 18 mg/dL 4-19 [facility] Sodium levelOrdered By: Marie Tomas on 11-26-2024 Sodium [Moles/Vol] 140 mmol/L 133-145 [facility] Basic Metabolic Profile (BMP )on 11-07-2024 BUN/CRE 19.5 RATIO Normal 10-20 [facility] Comment on above: Order Comment: 134 Performed By: #### L 500.4050, L506.1000, L501.9985, L100.0100 #### [facility] [address] [place], [address] Calcium [Mass/Vol] 9.0 mg/dL Normal 7.6-11.0 [facility] Comment on above: Order Comment: 134 Performed By: #### L 500.4050, L506.1000, L501.9985, L100.0100 #### [facility] [address] [place], [address] Chloride [Moles/Vol] 103 mmol/L Normal 98-108 [facility] Comment on above: Order Comment: 134 Performed By: #### L 500.4050, L506.1000, L501.9985, L100.0100 #### [facility] [address] [place], [address] CO2 [Moles/Vol] 25.5 mmol/L Normal 21.0-32.0 [facility] Comment on above: Order Comment: 134 Performed By: #### L 500.4050, L506.1000, L501.9985, L100.0100 #### [facility] [address] [place], [address] Creatinine [Mass/Vol] 0.82 mg/dL Normal 0.70-1.20 [facility] Comment on above: Order Comment: 134 Performed By: #### L 500.4050, L506.1000, L501.9985, L100.0100 #### [facility] [address] [place], [address] GAP 10 Normal 5-15 [facility] Comment on above: Order Comment: 134 Performed By: #### L 500.4050, L506.1000, L501.9985, L100.0100 #### [facility] [address] [place], [address] GFR/1.73 sq M.predicted among non-blacks MDRD (S/P/Bld) [Vol rate/Area] 76 mL/min/{1.73_m2} Normal >60 [facility] Comment on above: Order Comment: 134 Result Comment: mL/m in/1.73m2 CKD-EPI Creatinine Equation (2020) Performed By: #### L 500.4050, L506.1000, L501.9985, L100.0100 #### [facility] [address] [place], [address] Glucose [Mass/Vol] 79 mg/dL Normal 70-99 [facility] Comment on above: Order Comment: 134 Performed By: #### L 500.4050, L506.1000, L501.9985, L100.0100 #### [facility] [address] [place], [address] Potassium [Moles/Vol] 4.1 mmol/L Normal 3.3-5.1 [facility] Comment on above: Order Comment: 134 Performed By: #### L 500.4050, L506.1000, L501.9985, L100.0100 #### [facility] [address] [place], [address] Sodium [Moles/Vol] 139 mmol/L Normal 133-145 [facility] Comment on above: Order Comment: 134 Performed By: #### L 500.4050, L506.1000, L501.9985, L100.0100 #### [facility] [address] [place], [address] Urea nitrogen [Mass/Vol] 16 mg/dL Normal 4-19 [facility] Comment on above: Order Comment: 134 Performed By: #### L 500.4050, L506.1000, L501.9985, L100.0100 #### [facility] [address] [place], [address] CBC W/Diff, Automatedon 06-0 4-2024 Absolute Lymph 1.04 X10 3/uL Normal 0.83-4.51 [facility] Comment on above: Order Comment: 134 Performed By: #### L 500.4050, L506.1000, L501.9985, L100.0100 #### [facility] [address] [place], [address] Absolute Neut 2.2 X10 3/uL Normal 2.0-7.7 [facility] Comment on above: Order Comment: 134 Performed By: #### L 500.4050, L506.1000, L501.9985, L100.0100 #### [facility] [address] [place], [address] Basophils/100 WBC (Bld) 0.8 % Normal 0-1 [facility] Comment on above: Order Comment: 134 Performed By: #### L 500.4050, L506.1000, L501.9985, L100.0100 #### [facility] [address] [place], [address] Eosinophils/100 WBC (Bld) 3.2 % Normal 0-5 [facility] Comment on above: Order Comment: 134 Performed By: #### L 500.4050, L506.1000, L501.9985, L100.0100 #### [facility] [address] [place], [address] Erythrocyte distribution width (RBC) [Ratio] 15.9 % High 11.6-14.6 [facility] Comment on above: Order Comment: 134 Performed By: #### L 500.4050, L506.1000, L501.9985, L100.0100 #### [facility] [address] [place], [address] Hematocrit (Bld) [Volume fraction] 34.4 % Low 37-47 [facility] Comment on above: Order Comment: 134 Performed By: #### L 500.4050, L506.1000, L501.9985, L100.0100 #### [facility] Laboratory [address] [place], [address] Hemoglobin (Bld) [Mass/Vol] 11.1 g/dL Low 12.0-15.0 [facility] Comment on above: Order Comment: 134 Performed By: #### L 500.4050, L506.1000, L501.9985, L100.0100 #### [facility] Laboratory [address] [place], [address] IG% 0.500 Normal 0.0-0.9 [facility] Comment on above: Order Comment: 134 Result Comment: IG% - Immature Granulocytes (promyelocytes, myelocytes and metamyelocytes) > 1% indicates that a LEFT SHIFT is Present. Performed By: #### L 500.4050, L506.1000, L501.9985, L100.0100 #### [facility] [address] [place], [address] Lymphocytes/100 WBC (Bld) 27.4 % Normal 19-41 [facility] Comment on above: Order Comment: 134 Performed By: #### L 500.4050, L506.1000, L501.9985, L100.0100 #### [facility] [address] [place], [address] MCH (RBC) [Entitic mass] 28.3 pg Normal 27.0-32.0 [facility] Comment on above: Order Comment: 134 Performed By: #### L 500.4050, L506.1000, L501.9985, L100.0100 #### [facility] [address] [place], [address] MCHC (RBC) [Mass/Vol] 32.3 g/dL Normal 32-36 [facility] Comment on above: Order Comment: 134 Performed By: #### L 500.4050, L506.1000, L501.9985, L100.0100 #### [facility] [address] [place], [address] MCV (RBC) [Entitic vol] 87.8 fL Normal 81-99 [facility] Comment on above: Order Comment: 134 Performed By: #### L 500.4050, L506.1000, L501.9985, L100.0100 #### [facility] [address] [place], [address] Monocytes/100 WBC (Bld) 9.7 % Normal 0-10 [facility] Comment on above: Order Comment: 134 Performed By: #### L 500.4050, L506.1000, L501.9985, L100.0100 #### [facility] [address] [place], [address] Neutrophils/100 WBC (Bld) 58.4 % Normal 47-70 [facility] Comment on above: Order Comment: 134 Performed By: #### L 500.4050, L506.1000, L501.9985, L100.0100 #### [facility] [address] [place], [address] Nucleated RBC (Bld) [#/Vol] 0 10*3/uL Normal 0-5 [facility] Comment on above: Order Comment: 134 Performed By: #### L 500.4050, L506.1000, L501.9985, L100.0100 #### [facility] [address] [place], [address] Platelet mean volume (Bld) [Entitic vol] 10.7 fL Normal 6.2-12.0 [facility] Comment on above: Order Comment: 134 Performed By: #### L 500.4050, L506.1000, L501.9985, L100.0100 #### [facility] [address] [place], [address] Platelets (Bld) [#/Vol] 122 10*3/uL Low 150-450 [facility] Comment on above: Order Comment: 134 Performed By: #### L 500.4050, L506.1000, L501.9985, L100.0100 #### [facility] [address] [place], [address] RBC (Bld) [#/Vol] 3.92 10*6/uL Low 4.2-5.4 [facility] Comment on above: Order Comment: 134 Performed By: #### L 500.4050, L506.1000, L501.9985, L100.0100 #### [facility] [address] [place], [address] RDW SD 51.3 fl High 35.1-43.9 [facility] Comment on above: Order Comment: 134 Performed By: #### L 500.4050, L506.1000, L501.9985, L100.0100 #### [facility] [address] [place], [address] WBC (Bld) [#/Vol] 3.8 10*3/uL Low 4.4-11.0 [facility] Comment on above: Order Comment: 134 Performed By: #### L 500.4050, L506.1000, L501.9985, L100.0100 #### [facility] [address] [place], [address] Magnesiumon 11-07-2024 Magnesium [Mass/Vol] 2.1 mg/dL Normal 1.5-2.2 [facility] Comment on above: Order Comment: 134 Performed By: #### L 500.4050, L506.1000, L501.9985, L100.0100 #### [facility] [address] [place], [address] Basic Metabolic Profile (BMP )on 11-06-2024 BUN Normal 4-19 [facility] Comment on above: Order Comment: 134 Result Comment: QNS UTO X1 Performed By: #### L 500.4050, L506.1000, L501.9985, L100.0100 #### [facility] [address] [place], [address] BUN/CRE Normal 10-20 [facility] Comment on above: Order Comment: 134 Result Comment: QNS UTO X1 Performed By: #### L 500.4050, L506.1000, L501.9985, L100.0100 #### [facility] [address] [place], [address] Calcium Normal 7.6-11.0 [facility] Comment on above: Order Comment: 134 Result Comment: QNS UTO X1 Performed By: #### L 500.4050, L506.1000, L501.9985, L100.0100 #### [facility] [address] [place], [address] CL Normal 98-108 [facility] Comment on above: Order Comment: 134 Result Comment: QNS UTO X1 Performed By: #### L 500.4050, L506.1000, L501.9985, L100.0100 #### [facility] [address] [place], [address] CO2 Normal 21.0-32.0 [facility] Comment on above: Order Comment: 134 Result Comment: QNS UTO X1 Performed By: #### L 500.4050, L506.1000, L501.9985, L100.0100 #### [facility] [address] [place], [address] CREAT,SERUM Normal 0.70-1.20 [facility] Comment on above: Order Comment: 134 Result Comment: QNS UTO X1 Performed By: #### L 500.4050, L506.1000, L501.9985, L100.0100 #### [facility] [address] [place], [address] eGFR Normal >60 [facility] Comment on above: Order Comment: 134 Result Comment: QNS UTO X1 Performed By: #### L 500.4050, L506.1000, L501.9985, L100.0100 #### [facility] [address] [place], [address] GAP Normal 5-15 [facility] Comment on above: Order Comment: 134 Result Comment: QNS UTO X1 Performed By: #### L 500.4050, L506.1000, L501.9985, L100.0100 #### [facility] [address] [place], [address] GLU Normal 70-99 [facility] Comment on above: Order Comment: 134 Result Comment: QNS UTO X1 Performed By: #### L 500.4050, L506.1000, L501.9985, L100.0100 #### [facility] [address] [place], [address] Potassium Normal 3.3-5.1 [facility] Comment on above: Order Comment: 134 Result Comment: QNS UTO X1 Performed By: #### L 500.4050, L506.1000, L501.9985, L100.0100 #### [facility] [address] [place], [address] Basic Metabolic Profile (BMP) Normal 133-145 [facility] Comment on above: Order Comment: 134 Result Comment: QNS UTO X1 Performed By: #### L 500.4050, L506.1000, L501.9985, L100.0100 #### [facility] [address] [place], [address] CBC W/Diff, Automatedon 06-0 -2024 Absolute Neut Normal 2.0-7.7 [facility] Comment on above: Order Comment: 134 Result Comment: QNS UTO X1 Performed By: #### L 500.4050, L506.1000, L501.9985, L100.0100 #### [facility] [address] [place], [address] HCT Normal 37-47 [facility] Comment on above: Order Comment: 134 Result Comment: QNS UTO X1 Performed By: #### L 500.4050, L506.1000, L501.9985, L100.0100 #### [facility] [address] [place], [address] HGB Normal 12.0-15.0 [facility] Comment on above: Order Comment: 134 Result Comment: QNS UTO X1 Performed By: #### L 500.4050, L506.1000, L501.9985, L100.0100 #### [facility] [address] [place], [address] MCH Normal 27.0-32.0 [facility] Comment on above: Order Comment: 134 Result Comment: QNS UTO X1 Performed By: #### L 500.4050, L506.1000, L501.9985, L100.0100 #### [facility] [address] [place], [address] MCHC Normal 32-36 [facility] Comment on above: Order Comment: 134 Result Comment: QNS UTO X1 Performed By: #### L 500.4050, L506.1000, L501.9985, L100.0100 #### [facility] [address] [place], [address] MCV Normal 81-99 [facility] Comment on above: Order Comment: 134 Result Comment: QNS UTO X1 Performed By: #### L 500.4050, L506.1000, L501.9985, L100.0100 #### [facility] [address] [place], [address] NEUT% Normal 47-70 [facility] Comment on above: Order Comment: 134 Result Comment: QNS UTO X1 Performed By: #### L 500.4050, L506.1000, L501.9985, L100.0100 #### [facility] [address] [place], [address] PLT Normal 150-450 [facility] Comment on above: Order Comment: 134 Result Comment: QNS UTO X1 Performed By: #### L 500.4050, L506.1000, L501.9985, L100.0100 #### [facility] [address] [place], [address] RBC Normal 4.2-5.4 [facility] Comment on above: Order Comment: 134 Result Comment: QNS UTO X1 Performed By: #### L 500.4050, L506.1000, L501.9985, L100.0100 #### [facility] [address] [place], [address] RDW CV Normal 11.6-14.6 [facility] Comment on above: Order Comment: 134 Result Comment: QNS UTO X1 Performed By: #### L 500.4050, L506.1000, L501.9985, L100.0100 #### [facility] [address] [place], [address] RDW SD Normal 35.1-43.9 [facility] Comment on above: Order Comment: 134 Result Comment: QNS UTO X1 Performed By: #### L 500.4050, L506.1000, L501.9985, L100.0100 #### [facility] [address] [place], [address] WBC Normal 4.4-11.0 [facility] Comment on above: Order Comment: 134 Result Comment: QNS UTO X1 Performed By: #### L 500.4050, L506.1000, L501.9985, L100.0100 #### [facility] [address] [place], [address] Lamotrigine (Lamictal) Level on 11-02-2024 LAMOTRIGINE 8.5 ug/mL Normal 2.0-20.0 [facility] Comment on above: Order Comment: 134 Result Comment: Dete ction Limit = 1.0 Performed at: [address] [id number] Plasma Table Operator: Cody Llanos MD, Phone: [phone] Performed By: #### L 500.4050, L506.1000, L501.9985, L100.0100 #### [facility] [address] [place], [address] Trileptal-Oxcarbazepineon OXCARBAZEPINE 5 ug/mL Low 10-35 [facility] Comment on above: Order Comment: 134 Result Comment: This test was developed and its performance characteristics determined by [facility]. It has not been cleared or approved by the Food and Drug Administration. Detection Limit = 1 Performed By: #### L 500.4050, L506.1000, L501.9985, L100.0100 #### [facility] [address] [place], [address] CRPon 11-01-2024 C-REACTIVE PROT 14.10 mg/L High 0.0-3.0 [facility] Comment on above: Performed By: #### L 501.6710, L501.1400 #### [facility] [address] [place], [address] Uric Acidon 11-01-2024 URIC 5.6 mg/dL Normal 2.6-6.0 [facility] Comment on above: Result Comment: The drugs N-Acetylcysteine and Metamizole may falsely depress this assay. Performed By: #### L 501.6710, L501.1400 #### [facility] [address] [place], [address] Hemoglobin A1con 10-30-2024 HbA1c (Bld) [Mass fraction] 7.1 % High <=5.6 [facility] Comment on above: Order Comment: 134 Result Comment: Norm al < 5.7 % Prediabetic 5.7 - 6.4 % Diabetic >or= 6.5 % Please note range changes. Performed By: #### L 500.4050, L506.1000, L501.9985, L100.0100 #### [facility] [address] [place], [address] Lipid Profileon 10-30-2024 CHOL:HDL 1.80 Normal [facility] Comment on above: Order Comment: 134 Performed By: #### L 500.4050, L506.1000, L501.9985, L100.0100 #### [facility] [address] [place], [address] Cholesterol [Mass/Vol] 99 mg/dL Normal <=200 [facility] Comment on above: Order Comment: 134 Result Comment: Chol esterol level, Desirable <200 mg/dL Borderline high cholesterol 200-239 mg/dL High cholesterol >=240 mg/dL Recommendations of the NCEP Adult Treatment Panel for the following risk-cutoff thresholds for the [place] population. Performed By: #### L 500.4050, L506.1000, L501.9985, L100.0100 #### [facility] [address] [place], [address] Cholesterol in HDL [Mass/Vol] 55 mg/dL Normal [facility] Comment on above: Order Comment: 134 Result Comment: Linda onal Cholesterol Education Program (NCEP) guidelines: <40 mg/dL: Low HDL-cholesterol (major risk factor for CHD) >= 60 mg/dL: High HDL-cholesterol (negative risk factor for CHD) HDL-cholesterol is affected by a number of factors, e.g. smoking, exercise, hormones, sex and age. Performed By: #### L 500.4050, L506.1000, L501.9985, L100.0100 #### [facility] [address] [place], [address] Cholesterol in LDL [Mass/Vol] 34 mg/dL Normal [facility] Comment on above: Order Comment: 134 Result Comment: Bord axoxzf=253-349 mg/dL Higher Ughl=062 mg/dL or greater Performed By: #### L 500.4050, L506.1000, L501.9985, L100.0100 #### [facility] [address] [place], [address] Cholesterol in VLDL [Mass/Vol] 10 mg/dL Normal 5-40 [facility] Comment on above: Order Comment: 134 Performed By: #### L 500.4050, L506.1000, L501.9985, L100.0100 #### [facility] [address] [place], [address] Triglyceride [Mass/Vol] 51 mg/dL Normal [facility] Comment on above: Order Comment: 134 Result Comment: The drugs N-Acetylcysteine and Metamizole may falsely depress this assay. Normal range: <150 mg/dL Borderline High: 150-199 mg/dL High: 200-499 mg/dL Very High: >500 mg/dL Performed By: #### L 500.4050, L506.1000, L501.9985, L100.0100 #### [facility] [address] [place], [address] Vitamin D,25 Hydroxyon 10-30 Vitamin D 25-OH 22.0 ng/mL Low 30-100 [facility] Comment on above: Order Comment: 134 Result Comment: Maricarmen min D Status Deficiency: <20 ng/mL (50nmol/L) Insufficiency: 20-30 ng/mL (50-75 nmol/L) Sufficiency: 30-100 ng/mL (75-250 nmol/L) Toxicity: >100 ng/mL (>250 nmol/L) Performed By: #### L 500.4050, L506.1000, L501.9985, L100.0100 #### [facility] [address] [place], [address] CBC-Complete Blood Cnt No Di ffon 10-25-2024 Erythrocyte distribution width (RBC) [Ratio] 15.7 % High 11.6-14.6 [facility] Comment on above: Order Comment: 134 Performed By: #### L 500.4050, L506.1000, L501.9985, L100.0100 #### [facility] [address] [place], [address] Hematocrit (Bld) [Volume fraction] 39.5 % Normal 37-47 [facility] Comment on above: Order Comment: 134 Performed By: #### L 500.4050, L506.1000, L501.9985, L100.0100 #### [facility] [address] [place], [address] Hemoglobin (Bld) [Mass/Vol] 13.0 g/dL Normal 12.0-15.0 [facility] Comment on above: Order Comment: 134 Performed By: #### L 500.4050, L506.1000, L501.9985, L100.0100 #### [facility] [address] [place], [address] MCH (RBC) [Entitic mass] 29.1 pg Normal 27.0-32.0 [facility] Comment on above: Order Comment: 134 Performed By: #### L 500.4050, L506.1000, L501.9985, L100.0100 #### [facility] [address] [place], [address] MCHC (RBC) [Mass/Vol] 32.9 g/dL Normal 32-36 [facility] Comment on above: Order Comment: 134 Performed By: #### L 500.4050, L506.1000, L501.9985, L100.0100 #### [facility] [address] [place], [address] MCV (RBC) [Entitic vol] 88.4 fL Normal 81-99 [facility] Comment on above: Order Comment: 134 Performed By: #### L 500.4050, L506.1000, L501.9985, L100.0100 #### [facility] [address] [place], [address] Platelet mean volume (Bld) [Entitic vol] 11.9 fL Normal 6.2-12.0 [facility] Comment on above: Order Comment: 134 Performed By: #### L 500.4050, L506.1000, L501.9985, L100.0100 #### [facility] [address] [place], [address] Platelets (Bld) [#/Vol] 104 10*3/uL Low 150-450 [facility] Comment on above: Order Comment: 134 Performed By: #### L 500.4050, L506.1000, L501.9985, L100.0100 #### [facility] [address] [place], [address] RBC (Bld) [#/Vol] 4.47 10*6/uL Normal 4.2-5.4 [facility] Comment on above: Order Comment: 134 Performed By: #### L 500.4050, L506.1000, L501.9985, L100.0100 #### [facility] [address] [place], [address] RDW SD 51.5 fl High 35.1-43.9 [facility] Comment on above: Order Comment: 134 Performed By: #### L 500.4050, L506.1000, L501.9985, L100.0100 #### [facility] [address] [place], [address] WBC (Bld) [#/Vol] 6.3 10*3/uL Normal 4.4-11.0 [facility] Comment on above: Order Comment: 134 Performed By: #### L 500.4050, L506.1000, L501.9985, L100.0100 #### [facility] [address] [place], [address] Comprehensive Metabolic Prof [facility] 10-25-2024 Albumin [Mass/Vol] 3.8 g/dL Normal 3.4-4.8 [facility] Comment on above: Order Comment: 134 Performed By: #### L 500.4050, L506.1000, L501.9985, L100.0100 #### [facility] [address] [place], [address] Albumin/Globulin [Mass ratio] 0.9 {ratio} Normal 0.9-2.4 [facility] Comment on above: Order Comment: 134 Performed By: #### L 500.4050, L506.1000, L501.9985, L100.0100 #### [facility] [address] [place], [address] ALK PHOS 117 U/L High 35-104 [facility] Comment on above: Order Comment: 134 Performed By: #### L 500.4050, L506.1000, L501.9985, L100.0100 #### [facility] [address] [place], [address] ALT [Catalytic activity/Vol] 37 U/L High <=34 [facility] Comment on above: Order Comment: 134 Performed By: #### L 500.4050, L506.1000, L501.9985, L100.0100 #### [facility] [address] [place], [address] AST [Catalytic activity/Vol] 44 U/L High <=31 [facility] Comment on above: Order Comment: 134 Performed By: #### L 500.4050, L506.1000, L501.9985, L100.0100 #### [facility] [address] [place], [address] Bilirubin [Mass/Vol] 0.50 mg/dL Normal 0.00-1.30 [facility] Comment on above: Order Comment: 134 Performed By: #### L 500.4050, L506.1000, L501.9985, L100.0100 #### [facility] [address] [place], [address] BUN/CRE 25.5 RATIO High 10-20 [facility] Comment on above: Order Comment: 134 Performed By: #### L 500.4050, L506.1000, L501.9985, L100.0100 #### [facility] [address] [place], [address] Calcium [Mass/Vol] 9.4 mg/dL Normal 7.6-11.0 [facility] Comment on above: Order Comment: 134 Performed By: #### L 500.4050, L506.1000, L501.9985, L100.0100 #### [facility] [address] [place], [address] Chloride [Moles/Vol] 101 mmol/L Normal 98-108 [facility] Comment on above: Order Comment: 134 Performed By: #### L 500.4050, L506.1000, L501.9985, L100.0100 #### [facility] [address] [place], [address] CO2 [Moles/Vol] 23.5 mmol/L Normal 21.0-32.0 [facility] Comment on above: Order Comment: 134 Performed By: #### L 500.4050, L506.1000, L501.9985, L100.0100 #### [facility] [address] [place], [address] Creatinine [Mass/Vol] 0.93 mg/dL Normal 0.70-1.20 [facility] Comment on above: Order Comment: 134 Performed By: #### L 500.4050, L506.1000, L501.9985, L100.0100 #### [facility] [address] [place], [address] GAP 10 Normal 5-15 [facility] Comment on above: Order Comment: 134 Performed By: #### L 500.4050, L506.1000, L501.9985, L100.0100 #### [facility] [address] [place], [address] GFR/1.73 sq M.predicted among non-blacks MDRD (S/P/Bld) [Vol rate/Area] 65 mL/min/{1.73_m2} Normal >60 [facility] Comment on above: Order Comment: 134 Result Comment: mL/m in/1.73m2 CKD-EPI Creatinine Equation (2020) Performed By: #### L 500.4050, L506.1000, L501.9985, L100.0100 #### [facility] [address] [place], [address] Globulin (S) [Mass/Vol] 4.4 g/dL High 2.2-4.2 [facility] Comment on above: Order Comment: 134 Performed By: #### L 500.4050, L506.1000, L501.9985, L100.0100 #### [facility] [address] [place], [address] Glucose [Mass/Vol] 147 mg/dL High 70-99 [facility] Comment on above: Order Comment: 134 Performed By: #### L 500.4050, L506.1000, L501.9985, L100.0100 #### [facility] [address] [place], [address] Potassium [Moles/Vol] 4.7 mmol/L Normal 3.3-5.1 [facility] Comment on above: Order Comment: 134 Performed By: #### L 500.4050, L506.1000, L501.9985, L100.0100 #### [facility] [address] [place], [address] Sodium [Moles/Vol] 134 mmol/L Normal 133-145 [facility] Comment on above: Order Comment: 134 Performed By: #### L 500.4050, L506.1000, L501.9985, L100.0100 #### [facility] [address] [place], [address] T PROT 8.2 g/dL Normal 5.9-8.4 [facility] Comment on above: Order Comment: 134 Performed By: #### L 500.4050, L506.1000, L501.9985, L100.0100 #### [facility] [address] [place], [address] Urea nitrogen [Mass/Vol] 24 mg/dL High 4-19 [facility] Comment on above: Order Comment: 134 Performed By: #### L 500.4050, L506.1000, L501.9985, L100.0100 #### [facility] [address] [place], [address] Urine Cultureon 10-14-2024 [facility] Urine Culture Urine Culture Escherichia coli Wake Count 80,000-100,000 Escherichia coli: REACTION Ampicillin Islt [...] TMP SMX Islt TRANG <=20 S Normal [facility] Comment on above: Performed By: #### L 501.080 #### [facility] [address] [place], [address] Basic Metabolic Profile (BMP )on 10-12-2024 BUN Normal 4-19 [facility] [facility] Comment on above: Result Comment: Canc elled via OM: Order cancelled - Patient discharged Performed By: #### L 500.4050, L506.1000, L501.9985, L100.0100 #### [facility] [address] [place], [address] BUN/CRE Normal 10-20 [facility] Comment on above: Result Comment: Canc elled via OM: Order cancelled - Patient discharged Performed By: #### L 500.4050, L506.1000, L501.9985, L100.0100 #### [facility] [address] [place], [address] Calcium Normal 7.6-11.0 [facility] Comment on above: Result Comment: Canc elled via OM: Order cancelled - Patient discharged Performed By: #### L 500.4050, L506.1000, L501.9985, L100.0100 #### [facility] [address] [place], [address] CL Normal 98-108 [facility] Comment on above: Result Comment: Canc elled via OM: Order cancelled - Patient discharged Performed By: #### L 500.4050, L506.1000, L501.9985, L100.0100 #### [facility] [address] [place], [address] CO2 Normal 21.0-32.0 [facility] Comment on above: Result Comment: Canc elled via OM: Order cancelled - Patient discharged Performed By: #### L 500.4050, L506.1000, L501.9985, L100.0100 #### [facility] [address] [place], [address] CREAT,SERUM Normal 0.70-1.20 [facility] Comment on above: Result Comment: Canc elled via OM: Order cancelled - Patient discharged Performed By: #### L 500.4050, L506.1000, L501.9985, L100.0100 #### [facility] [address] [place], [address] eGFR Normal >60 [facility] Comment on above: Result Comment: Canc elled via OM: Order cancelled - Patient discharged Performed By: #### L 500.4050, L506.1000, L501.9985, L100.0100 #### [facility] [address] [place], [address] GAP Normal 5-15 [facility] Comment on above: Result Comment: Canc elled via OM: Order cancelled - Patient discharged Performed By: #### L 500.4050, L506.1000, L501.9985, L100.0100 #### [facility] [address] [place], [address] GLU Normal 70-99 [facility] Comment on above: Result Comment: Canc elled via OM: Order cancelled - Patient discharged Performed By: #### L 500.4050, L506.1000, L501.9985, L100.0100 #### [facility] [address] [place], [address] Potassium Normal 3.3-5.1 [facility] Comment on above: Result Comment: Canc elled via OM: Order cancelled - Patient discharged Performed By: #### L 500.4050, L506.1000, L501.9985, L100.0100 #### [facility] [address] [place], [address] Basic Metabolic Profile (BMP) Normal 133-145 [facility] Comment on above: Result Comment: Canc elled via OM: Order cancelled - Patient discharged Performed By: #### L 500.4050, L506.1000, L501.9985, L100.0100 #### [facility] [address] [place], [address] CBC W/Diff, Automatedon 05-0 9-2024 Absolute Neut Normal 2.0-7.7 [facility] Comment on above: Result Comment: Canc elled via OM: Order cancelled - Patient discharged Performed By: #### L 500.4050, L506.1000, L501.9985, L100.0100 #### [facility] [address] [place], [address] HCT Normal 37-47 [facility] Comment on above: Result Comment: Canc elled via OM: Order cancelled - Patient discharged Performed By: #### L 500.4050, L506.1000, L501.9985, L100.0100 #### [facility] [address] [place], [address] HGB Normal 12.0-15.0 [facility] Comment on above: Result Comment: Canc elled via OM: Order cancelled - Patient discharged Performed By: #### L 500.4050, L506.1000, L501.9985, L100.0100 #### [facility] [address] [place], [address] MCH Normal 27.0-32.0 [facility] Comment on above: Result Comment: Canc elled via OM: Order cancelled - Patient discharged Performed By: #### L 500.4050, L506.1000, L501.9985, L100.0100 #### [facility] [address] [place], [address] MCHC Normal 32-36 [facility] Comment on above: Result Comment: Canc elled via OM: Order cancelled - Patient discharged Performed By: #### L 500.4050, L506.1000, L501.9985, L100.0100 #### [facility] [address] [place], [address] MCV Normal 81-99 [facility] Comment on above: Result Comment: Canc elled via OM: Order cancelled - Patient discharged Performed By: #### L 500.4050, L506.1000, L501.9985, L100.0100 #### [facility] [address] [place], [address] NEUT% Normal 47-70 [facility] Comment on above: Result Comment: Canc elled via OM: Order cancelled - Patient discharged Performed By: #### L 500.4050, L506.1000, L501.9985, L100.0100 #### [facility] [address] [place], [address] PLT Normal 150-450 [facility] Comment on above: Result Comment: Canc elled via OM: Order cancelled - Patient discharged Performed By: #### L 500.4050, L506.1000, L501.9985, L100.0100 #### [facility] [address] [place], [address] RBC Normal 4.2-5.4 [facility] Comment on above: Result Comment: Canc elled via OM: Order cancelled - Patient discharged Performed By: #### L 500.4050, L506.1000, L501.9985, L100.0100 #### [facility] [address] [place], [address] RDW CV Normal 11.6-14.6 [facility] Comment on above: Result Comment: Canc elled via OM: Order cancelled - Patient discharged Performed By: #### L 500.4050, L506.1000, L501.9985, L100.0100 #### [facility] [address] [place], [address] RDW SD Normal 35.1-43.9 [facility] Comment on above: Result Comment: Canc elled via OM: Order cancelled - Patient discharged Performed By: #### L 500.4050, L506.1000, L501.9985, L100.0100 #### [facility] [address] [place], [address] WBC Normal 4.4-11.0 [facility] Comment on above: Result Comment: Canc elled via OM: Order cancelled - Patient discharged Performed By: #### L 500.4050, L506.1000, L501.9985, L100.0100 #### [facility] [address] [place], [address] Absolute lymphocyte countOrd ered By: Tyrell Page on 10-11-2024 Lymphocytes Auto (Unsp spec) [#/Vol] 1.20 10*3/uL 0.83-4.51 [facility] Absolute neutrophil countOrd ered By: Tyrell Page on 10-11-2024 Neutrophils (Bld) [#/Vol] 2.6 10*3/uL 2.0-7.7 [facility] Anion gap in Serum or Plasma Ordered By: Tyrell Page on 10-11-2024 Anion gap [Moles/Vol] 10 mmol/L 5-15 [facility] Automated lymphocyte count a s percentage of total leukocytesOrdered By: Tyrell Page on 10-11-2024 Lymphocytes/100 WBC Auto (Unsp spec) 26.8 % -41 [facility] BUN/creatinine ratioOrdered By: Tyrell Page on 10-11-2024 Urea nitrogen/Creatinine [Mass ratio] 28.3 mg/mg High 03-25 [facility] Basic Metabolic Profile (BMP )on 10-11-2024 BUN/CRE 28.3 RATIO High - [facility] Comment on above: Performed By: #### L 500.4050, L506.1000, L501.9985, L100.0100 #### [facility] [address] [place], [address] Calcium [Mass/Vol] 9.2 mg/dL Normal 7.6-11.0 [facility] Comment on above: Performed By: #### L 500.4050, L506.1000, L501.9985, L100.0100 #### [facility] [address] [place], [address] Chloride [Moles/Vol] 108 mmol/L Normal 98-108 [facility] Comment on above: Performed By: #### L 500.4050, L506.1000, L501.9985, L100.0100 #### [facility] [address] [place], [address] CO2 [Moles/Vol] 20.7 mmol/L Low 21.0-32.0 [facility] Comment on above: Performed By: #### L 500.4050, L506.1000, L501.9985, L100.0100 #### [facility] [address] [place], [address] Creatinine [Mass/Vol] 0.76 mg/dL Normal 0.70-1.20 [facility] Comment on above: Performed By: #### L 500.4050, L506.1000, L501.9985, L100.0100 #### [facility] [address] [place], [address] ECRCL 89.89 ml/min Normal 50-250 [facility] Comment on above: Performed By: #### L 500.4050, L506.1000, L501.9985, L100.0100 #### [facility] [address] [place], [address] GAP 10 Normal 5-15 [facility] Comment on above: Performed By: #### L 500.4050, L506.1000, L501.9985, L100.0100 #### [facility] [address] [place], [address] GFR/1.73 sq M.predicted among non-blacks MDRD (S/P/Bld) [Vol rate/Area] 84 mL/min/{1.73_m2} Normal >60 [facility] Comment on above: Result Comment: mL/m in/1.73m2 CKD-EPI Creatinine Equation (2020) Performed By: #### L 500.4050, L506.1000, L501.9985, L100.0100 #### [facility] [address] [place], [address] Glucose [Mass/Vol] 131 mg/dL High 70-99 [facility] Comment on above: Performed By: #### L 500.4050, L506.1000, L501.9985, L100.0100 #### [facility] [address] [place], [address] Potassium [Moles/Vol] 3.9 mmol/L Normal 3.3-5.1 [facility] Comment on above: Performed By: #### L 500.4050, L506.1000, L501.9985, L100.0100 #### [facility] [address] [place], [address] Sodium [Moles/Vol] 139 mmol/L Normal 133-145 [facility] Comment on above: Performed By: #### L 500.4050, L506.1000, L501.9985, L100.0100 #### [facility] [address] [place], [address] Urea nitrogen [Mass/Vol] 21 mg/dL High 4-19 [facility] Comment on above: Performed By: #### L 500.4050, L506.1000, L501.9985, L100.0100 #### [facility] [address] [place], [address] Basophil percentageOrdered B y: Tyrell Page on 10-11-2024 Basophils/100 WBC (Bld) 0.7 % 0-1 [facility] Bedside Glucoseon 10-11-2024 FINGERSTICK GLU 137 mg/dL High 74-106 [facility] Comment on above: Result Comment: ALINA BRYANENT OF PATIENT CARE PER NURSING PROTOCOL Performed By: #### L 500.4050, L506.1000, L501.9985, L100.0100 #### [facility] [address] [place], [address] CBC W/Diff, Automatedon 05-0 PLT EST SLT DEC Normal ADEQ [facility] Comment on above: Performed By: #### L 500.4050, L506.1000, L501.9985, L100.0100 #### [facility] [address] [place], [address] Carbon dioxide, total [Moles /volume] in Central venous bloodOrdered By: Tyrell Page on 10-11-2024 CO2 [Moles/Vol] 20.7 mmol/L Low 21.0-32.0 [facility] Chloride assayOrdered By: Arabella Page on 10-11-2024 Chloride [Moles/Vol] 108 mmol/L 98-108 [facility] Eosinophil percentageOrdered By: Tyrell Page on 10-11-2024 Eosinophils/100 WBC (Bld) 5.1 % High 0-5 [facility] Erythrocyte distribution wid th ratioOrdered By: Tyrell Page on 10-11-2024 Erythrocyte distribution width (RBC) [Ratio] 16.0 % High 11.6-14.6 [facility] Erythrocyte distribution wid th standard deviationOrdered By: Tyrell Page on 10-11-2024 Erythrocyte distribution width (RBC) [Ratio] 50.8 fl High 35.1-43.9 [facility] Glomerular filtration rate ( GFR) estimation/1.73 sq m using serum, plasma, or whole bOrdered By: Tyrell Page on 10-11-2024 GFR/1.73 sq M.predicted among non-blacks MDRD (S/P/Bld) [Vol rate/Area] 84 mL/min/{1.73_m2} >60 [facility] Comment on above: mL/min/1.73m2 CKD-EP I Creatinine Equation (2020) [facility]dered By: Tyrell Page on 10-11-2024 Glucose [Mass/Vol] 137 mg/dL High 74-106 [facility] Comment on above: MANAGEMENT OF PATIEN T CARE PER NURSING PROTOCOL Hematocrit Auto (Bld) [Volum e fraction]Ordered By: Tyrell Page on 10-11-2024 Hematocrit (Bld) [Volume fraction] 34.0 % Low 37-47 [facility] Hemoglobin measurementOrdere d By: Tyrell Page on 10-11-2024 Hemoglobin (Bld) [Mass/Vol] 11.3 g/dL Low 12.0-15.0 [facility] Immature granulocytes/100 WB C Auto (Bld)Ordered By: Tyrell Page on 10-11-2024 Immature granulocytes/100 WBC (Bld) 0.200 % 0.0-0.9 [facility] Comment on above: IG% - Immature Granu locytes (promyelocytes, myelocytes and metamyelocytes) > 1% indicates that a LEFT SHIFT is Present. MCV (mean corpuscular volume ) determinationOrdered By: Tyrell Page on 10-11-2024 MCV (RBC) [Entitic vol] 86.7 fL 81-99 [facility] Magnesiumon 10-11-2024 Magnesium [Mass/Vol] 2.1 mg/dL Normal 1.5-2.2 [facility] Comment on above: Performed By: #### L 506.0200 #### [facility] [address] [place], [place], [address] Magnesium measurement (mass/ volume)Ordered By: Tyrell Page on 10-11-2024 Magnesium (Unsp spec) [Mass/Vol] 2.1 mg/dL 1.5-2.2 [facility] Mean corpuscular hemoglobin (MCH) determinationOrdered By: Tyrell Page on 10-11-2024 MCH (RBC) [Entitic mass] 28.8 pg 27.0-32.0 [facility] Mean corpuscular hemoglobin concentration (MCHC) determinationOrdered By: Tyrell Page on 10-11-2024 MCHC (RBC) [Mass/Vol] 33.2 g/dL 32-36 [facility] Mean platelet volume determi nationOrdered By: Tyrell Page on 10-11-2024 Platelet mean volume (Bld) [Entitic vol] 11.1 fL 6.2-12.0 [facility] Monocyte percentageOrdered B y: Tyrell Pgae on 10-11-2024 Monocytes/100 WBC (Bld) 9.8 % 0-10 [facility] Neutrophil percentageOrdered By: Tyrell Page on 10-11-2024 Neutrophils/100 WBC (Bld) 57.4 % 47-70 [facility] Nucleated red blood cell per centageOrdered By: Tyrell Page on 10-11-2024 Nucleated RBC/100 WBC (Bld) [Ratio] 0 % 0-5 [facility] Phosphoruson 10-11-2024 Phosphate [Mass/Vol] 3.7 mg/dL Normal 2.7-4.5 [facility] Comment on above: Performed By: #### L 506.0200 #### [facility] [address] [place], [address] Platelet countOrdered By: Arabella Page on 10-11-2024 Platelets (Bld) [#/Vol] 95 10*3/uL Low 150-450 [facility] Platelet estimateOrdered By: Tyrell Page on 10-11-2024 Platelets LM Ql (Bld) SLT DEC ADEQ [facility] Potassium measurement (mass/ volume)Ordered By: Tyrell Page on 10-11-2024 Potassium (Unsp spec) [Mass/Vol] 3.9 mmol/L 3.3-5.1 [facility] RBC Auto (Bld) [#/Vol]Ordere d By: Tyrell Page on 10-11-2024 RBC (Bld) [#/Vol] 3.92 10*6/uL Low 4.2-5.4 [facility] Serum creatinine measurement (mass/volume)Ordered By: Tyrell Page on 10-11-2024 Creatinine [Mass/Vol] 0.76 mg/dL 0.70-1.20 [facility] Serum glucose measurement (m ass/volume)Ordered By: Tyrell Page on 10-11-2024 Glucose [Mass/Vol] 131 mg/dL High 70-99 [facility] Serum or plasma calcium kim urement (mass/volume)Ordered By: Tyrell Page on 10-11-2024 Calcium [Mass/Vol] 9.2 mg/dL 7.6-11.0 [facility] Serum or plasma urea nitroge n measurement (mass/volume)Ordered By: Tyrell Page on 10-11-2024 Urea nitrogen [Mass/Vol] 21 mg/dL High 4-19 [facility] Sodium levelOrdered By: Nikunj Page on 10-11-2024 Sodium [Moles/Vol] 139 mmol/L 133-145 [facility] White blood cell (WBC) count Ordered By: Tyrell Page on 10-11-2024 WBC (Bld) [#/Vol] 4.5 10*3/uL 4.4-11.0 [facility] Bedside Glucoseon 10-10-2024 FINGERSTICK GLU 159 mg/dL High 74-106 [facility] Comment on above: Result Comment: ALINA GEMENT OF PATIENT CARE PER NURSING PROTOCOL Performed By: #### L 500.4050, L506.1000, L501.9985, L100.0100 #### [facility] [address] [place], [address] FINGERSTICK GLU 196 mg/dL High 74-106 [facility] Comment on above: Result Comment: ALINA GEMENT OF PATIENT CARE PER NURSING PROTOCOL Performed By: #### L 500.4050, L506.1000, L501.9985, L100.0100 #### [facility] [address] [place], [address] FINGERSTICK GLU 165 mg/dL High 74-106 [facility] Comment on above: Result Comment: ALINA GEMENT OF PATIENT CARE PER NURSING PROTOCOL Performed By: #### L 501.080 #### [facility] [address] [place], [address] FINGERSTICK GLU 159 mg/dL High 74-106 [facility] Comment on above: Result Comment: ALINA GEMENT OF PATIENT CARE PER NURSING PROTOCOL Performed By: #### L 500.4050, L506.1000, L501.9985, L100.0100 #### [facility] [address] [place], [address] FINGERSTICK GLU 148 mg/dL High -106 [facility] Comment on above: Result Comment: ALINA GEMENT OF PATIENT CARE PER NURSING PROTOCOL Performed By: #### L 501.080 #### [facility] [address] [place], [address] Bilirubin, totalOrdered By: Missael Lomeli on 10-10-2024 Bilirubin [Mass/Vol] 0.68 mg/dL 0.00-1.30 [facility] CBC W/Diff, Automatedon Absolute Lymph 1.03 X10 3/uL Normal 0.83-4.51 [facility] Comment on above: Performed By: #### L 506.0200 #### [facility] [address] [place], [address] Absolute Neut 3.4 X10 3/uL Normal 2.0-7.7 [facility] Comment on above: Performed By: #### L 506.0200 #### [facility] [address] [place], [address] Basophils/100 WBC (Bld) 0.6 % Normal 0-1 [facility] Comment on above: Performed By: #### L 506.0200 #### [facility] [address] [place], [address] Eosinophils/100 WBC (Bld) 5.1 % High 0-5 [facility] Comment on above: Performed By: #### L 506.0200 #### [facility] [address] [place], [address] Erythrocyte distribution width (RBC) [Ratio] 15.9 % High 11.6-14.6 [facility] Comment on above: Performed By: #### L 506.0200 #### [facility] [address] [place], [address] Hematocrit (Bld) [Volume fraction] 37.6 % Normal 37-47 [facility] Comment on above: Performed By: #### L 506.0200 #### [facility] [address] [place], [address] Hemoglobin (Bld) [Mass/Vol] 12.3 g/dL Normal 12.0-15.0 [facility] Comment on above: Performed By: #### L 506.0200 #### [facility] [address] [place], [address] IG% 0.200 Normal 0.0-0.9 [facility] Comment on above: Result Comment: IG% - Immature Granulocytes (promyelocytes, myelocytes and metamyelocytes) > 1% indicates that a LEFT SHIFT is Present. Performed By: #### L 506.0200 #### [facility] [address] [place], [address] Lymphocytes/100 WBC (Bld) 19.6 % Normal 19-41 [facility] Comment on above: Performed By: #### L 506.0200 #### [facility] [address] [place], [address] MCH (RBC) [Entitic mass] 28.8 pg Normal 27.0-32.0 [facility] Comment on above: Performed By: #### L 506.0200 #### [facility] [address] [place], [address] MCHC (RBC) [Mass/Vol] 32.7 g/dL Normal 32-36 [facility] Comment on above: Performed By: #### L 506.0200 #### [facility] [address] [place], [address] MCV (RBC) [Entitic vol] 88.1 fL Normal 81-99 [facility] Comment on above: Performed By: #### L 506.0200 #### [facility] [address] [place], [address] Monocytes/100 WBC (Bld) 9.1 % Normal 0-10 [facility] Comment on above: Performed By: #### L 506.0200 #### [facility] [address] [place], [address] Neutrophils/100 WBC (Bld) 65.4 % Normal 47-70 [facility] Comment on above: Performed By: #### L 506.0200 #### [facility] [address] [place], [address] Nucleated RBC (Bld) [#/Vol] 0 10*3/uL Normal 0-5 [facility] Comment on above: Performed By: #### L 506.0200 #### [facility] [address] [place], [address] Platelet mean volume (Bld) [Entitic vol] 11.7 fL Normal 6.2-12.0 [facility] Comment on above: Performed By: #### L 506.0200 #### [facility] [address] [place], [address] Platelets (Bld) [#/Vol] 100 10*3/uL Low 150-450 [facility] Comment on above: Performed By: #### L 506.0200 #### [facility] [address] [place], [address] RBC (Bld) [#/Vol] 4.27 10*6/uL Normal 4.2-5.4 [facility] Comment on above: Performed By: #### L 506.0200 #### [facility] [address] [place], [address] RDW SD 51.4 fl High 35.1-43.9 [facility] Comment on above: Performed By: #### L 506.0200 #### [facility] [address] [place], [address] WBC (Bld) [#/Vol] 5.3 10*3/uL Normal 4.4-11.0 [facility] Comment on above: Performed By: #### L 506.0200 #### [facility] [address] [place], [address] Calculated very low density lipoprotein (VLDL) cholesterol measurementOrdered By: Missael Lomeli on 10-10-2024 Calculated very low density lipoprotein (VLDL) cholesterol measurement 16 mg/dL 5-40 [facility] Comprehensive Metabolic Prof ilon 10-10-2024 Albumin [Mass/Vol] 3.5 g/dL Normal 3.4-4.8 [facility] Comment on above: Performed By: #### L 503.0106 #### [facility] [address] [place], [address] Albumin/Globulin [Mass ratio] 1.0 {ratio} Normal 0.9-2.4 [facility] Comment on above: Performed By: #### L 503.0106 #### [facility] [address] [place], [address] ALK PHOS 122 U/L High 35-104 [facility] Comment on above: Performed By: #### L 503.0106 #### [facility] [address] [place], [address] ALT [Catalytic activity/Vol] 23 U/L Normal <=34 [facility] Comment on above: Performed By: #### L 503.0106 #### [facility] [address] [place], [address] AST [Catalytic activity/Vol] 37 U/L High <=31 [facility] Comment on above: Result Comment: Hemo lysis present, Results??could be affected. ?? Performed By: #### L 503.0106 #### [facility] [address] [place], [address] Bilirubin [Mass/Vol] 0.68 mg/dL Normal 0.00-1.30 [facility] Comment on above: Performed By: #### L 503.0106 #### [facility] [address] [place], [address] BUN/CRE 25.4 RATIO High 10-20 [facility] Comment on above: Performed By: #### L [id number] #### [facility] [address] [place], [address] Calcium [Mass/Vol] 8.9 mg/dL Normal 7.6-11.0 [facility] Comment on above: Performed By: #### L 503.0106 #### [facility] [address] [place], [address] Chloride [Moles/Vol] 106 mmol/L Normal 98-108 [facility] Comment on above: Performed By: #### L [id number] #### [facility] [address] [place], [address] CO2 [Moles/Vol] 19.0 mmol/L Low 21.0-32.0 [facility] Comment on above: Performed By: #### L [id number] #### [facility] [address] [place], [address] Creatinine [Mass/Vol] 0.78 mg/dL Normal 0.70-1.20 [facility] Comment on above: Performed By: #### L [id number] #### [facility] [address] [place], [address] ECRCL 88.83 ml/min Normal 50-250 [facility] Comment on above: Performed By: #### L [id number] #### [facility] [address] [place], [address] GAP 13 Normal 5-15 [facility] Comment on above: Performed By: #### L [id number] #### [facility] [address] [place], [address] GFR/1.73 sq M.predicted among non-blacks MDRD (S/P/Bld) [Vol rate/Area] 81 mL/min/{1.73_m2} Normal >60 [facility] Comment on above: Result Comment: mL/m in/1.73m2 CKD-EPI Creatinine Equation (2020) Performed By: #### L 503.0106 #### [facility] [address] [place], [address] Globulin (S) [Mass/Vol] 3.7 g/dL Normal 2.2-4.2 [facility] Comment on above: Performed By: #### L 503.0106 #### [facility] [address] [place], [address] Glucose [Mass/Vol] 151 mg/dL High 70-99 [facility] Comment on above: Performed By: #### L 503.0106 #### [facility] [address] [place], [address] Potassium [Moles/Vol] 4.3 mmol/L Normal 3.3-5.1 [facility] Comment on above: Result Comment: Hemo lysis present, Results??could be affected. ?? Performed By: #### L 503.0106 #### [facility] [address] [place], [address] Sodium [Moles/Vol] 138 mmol/L Normal 133-145 [facility] Comment on above: Performed By: #### L 503.0106 #### [facility] [address] [place], [address] T PROT 7.2 g/dL Normal 5.9-8.4 [facility] Comment on above: Performed By: #### L [id number] #### [facility] [address] [place], [address] Urea nitrogen [Mass/Vol] 20 mg/dL High 4-19 [facility] Comment on above: Performed By: #### L 503.0106 #### [facility] [address] [place], [address] Folate [Moles/volume] in Ser um or PlasmaOrdered By: Missael Lomeli on 10-10-2024 Folate [Moles/Vol] 7.20 ng/mL 4.60-34.80 [facility] Comment on above: Hemolysis, Results w ill be affected, Requires Recollection. Folates,Serum (Folic Acid)on 10-10-2024 FOLATES,SERUM 7.20 ng/mL Normal 4.60-34.80 [facility] Comment on above: Order Comment: N Result Comment: Hemo lysis, Results will be affected, Requires Recollection. Performed By: #### L 506.0200 #### [facility] [address] [place], [place], [address] Hemoglobin A1con 10-10-2024 HbA1c (Bld) [Mass fraction] 7.2 % High <=5.6 [facility] Comment on above: Result Comment: Norm al < 5.7 % Prediabetic 5.7 - 6.4 % Diabetic >or= 6.5 % Please note range changes. Performed By: #### L 503.0106 #### [facility] [address] [place], [place], [address] LDL calc ser/plasOrdered By: Missael Lomeli on 10-10-2024 Cholesterol in LDL [Mass/Vol] 31 mg/dL [facility] Comment on above: Akepqrdiww=822-945 m g/dL & Higher Ttts=928 mg/dL or greater Laboratory - Chemistry and C hemistry - challengeOrdered By: Missael Lomeli on 10-10-2024 AST [Catalytic activity/Vol] 37 U/L High <32 [facility] Comment on above: Hemolysis present, R esults could be affected. Lipid Profileon 10-10-2024 CHOL:HDL 1.84 Normal [facility] Comment on above: Performed By: #### L 506.0200 #### [facility] [address] [place], [place], [id number] [phone] Cholesterol [Mass/Vol] 103 mg/dL Normal <=200 [facility] Comment on above: Result Comment: Chol esterol level, Desirable <200 mg/dL Borderline high cholesterol 200-239 mg/dL High cholesterol >=240 mg/dL Recommendations of the NCEP Adult Treatment Panel for the following risk-cutoff thresholds for the [place] population. Performed By: #### L 506.0200 #### [facility] [address] [place], [place], [id number] (258) Cholesterol in HDL [Mass/Vol] 56 mg/dL Normal [facility] Comment on above: Result Comment: Linda onal Cholesterol Education Program (NCEP) guidelines: <40 mg/dL: Low HDL-cholesterol (major risk factor for CHD) >= 60 mg/dL: High HDL-cholesterol (negative risk factor for CHD) HDL-cholesterol is affected by a number of factors, e.g. smoking, exercise, hormones, sex and age. Performed By: #### L 506.0200 #### [facility] [address] [place], [address] Cholesterol in LDL [Mass/Vol] 31 mg/dL Normal [facility] Comment on above: Result Comment: Bord oshscz=200-981 mg/dL Higher Ubhl=047 mg/dL or greater Performed By: #### L 506.0200 #### [facility] [address] [place], [address] Cholesterol in VLDL [Mass/Vol] 16 mg/dL Normal 5-40 [facility] Comment on above: Performed By: #### L 506.0200 #### [facility] [address] [place], [address] Triglyceride [Mass/Vol] 82 mg/dL Normal [facility] Comment on above: Result Comment: The drugs N-Acetylcysteine and Metamizole may falsely depress this assay. Normal range: <150 mg/dL Borderline High: 150-199 mg/dL High: 200-499 mg/dL Very High: >500 mg/dL Performed By: #### L 506.0200 #### [facility] [address] [place], [address] Phosphoruson 10-10-2024 Phosphate [Mass/Vol] 3.3 mg/dL Normal 2.7-4.5 [facility] Comment on above: Performed By: #### L 506.0200 #### [facility] [address] [place], [address] Screening total cholesterol/ high density lipoprotein (HDL) cholesterol ratioOrdered By: Missael Lomeli on 10-10-2024 Cholesterol.total/Cho lesterol in HDL [Mass ratio] 1.84 {ratio} [facility] Serum globulin measurementOr dered By: Missael Lomeli on 10-10-2024 Globulin (S) [Mass/Vol] 3.7 g/dL 2.2-4.2 [facility] Serum or plasma alanine burnette otransferase (ALT) measurementOrdered By: Missael Lomeli on 10-10-2024 ALT [Catalytic activity/Vol] 23 U/L <35 [facility] Serum or plasma albumin kim urement (mass/volume)Ordered By: Missael Lomeli on 10-10-2024 Albumin [Mass/Vol] 3.5 g/dL 3.4-4.8 [facility] Serum or plasma albumin/glob ulin mass ratioOrdered By: Missael Lomeli on 10-10-2024 Albumin/Globulin [Mass ratio] 1.0 {ratio} 0.9-2.4 [facility] Serum or plasma alkaline regina sphatase measurementOrdered By: Missael Lomeli on 10-10-2024 ALP [Catalytic activity/Vol] 122 U/L High 35-104 [facility] Serum or plasma cholesterol in HDL measurement (mass/volume)Ordered By: Missael Lomeli on 10-10-2024 Cholesterol in HDL [Mass/Vol] 56 mg/dL >40 [facility] Comment on above: National Cholesterol Education Program (NCEP) guidelines:<40 mg/dL: Low HDL-cholesterol (major risk factor for CHD)>= 60 mg/dL: High HDL-cholesterol (negative risk factor for CHD)HDL-cholesterol is affected by a number of factors, e.g. smoking, exercise, hormones, sex and age. Serum or plasma cholesterol measurement (mass/volume)Ordered By: Missael Lomeli on 10-10-2024 Cholesterol [Mass/Vol] 103 mg/dL <201 [facility] Comment on above: Cholesterol level, D esirable <200 mg/dLBorderline high cholesterol 200-239 mg/dLHigh cholesterol >=240 mg/dLRecommendations of the NCEP Adult Treatment Panel for the following risk-cutoff thresholds for the [place] population. Total proteinOrdered By: Enrrique Lomeli on 10-10-2024 Protein [Mass/Vol] 7.2 g/dL 5.9-8.4 [facility] Triglycerides measurementOrd ered By: Missael Lomeli on 10-10-2024 Triglyceride [Mass/Vol] 82 mg/dL <199 [facility] Comment on above: The drugs N-Acetylcy steine and Metamizole may falsely depress this assay. Normal range: <150 mg/dLBorderline High: 150-199 mg/dLHigh: 200-499 mg/dLVery High: >500 mg/dL Absolute lymphocyte countOrd ered By: Shayna Malhotra on 10-09-2024 Lymphocytes Auto (Unsp spec) [#/Vol] 0.97 10*3/uL 0.83-4.51 [facility] Absolute neutrophil countOrd ered By: Dany Richardson on 10-09-2024 Neutrophils (Bld) [#/Vol] 4.9 10*3/uL 2.0-7.7 [facility] Absolute neutrophil countOrd ered By: Shayna Malhotra on 10-09-2024 Neutrophils (Bld) [#/Vol] 4.4 10*3/uL 2.0-7.7 [facility] Alcohol, Blood (Medical)-Ser umon 10-09-2024 SERUM ETOH < 10.1 Normal <=10.0 [facility] Comment on above: Result Comment: This test is for medical purposes only. The legal definition of intoxication varies according to local law. Performed By: #### L 503.0106 #### [facility] [address] [place], [place] [address] [place], [place], [id number] Amorphous sediment detection in urine sediment by light microscopyOrdered By: Dany Richardson on 10-09-2024 Amorphous sediment LM Ql (Urine sed) 1+ [facility] Amphetamine detection with 1 000 ng/mL as cutoffOrdered By: Missael Lomeli on 10-09-2024 Amphetamines Screen method >1000 ng/mL Ql (U) Negative < 200 ng/mL [facility] Anion gap in Serum or Plasma Ordered By: Dany Richardson on 10-09-2024 Anion gap [Moles/Vol] 11 mmol/L 10-18 [facility] Anion gap in Serum or Plasma Ordered By: Shayna Malhotra on 10-09-2024 Anion gap [Moles/Vol] 12 mmol/L 10-18 [facility] Automated lymphocyte count a s percentage of total leukocytesOrdered By: Shayna Malhotra on 10-09-2024 Lymphocytes/100 WBC Auto (Unsp spec) 16.1 % Low 19-41 [facility] BUN/creatinine ratioOrdered By: Dany Richardson on 10-09-2024 Urea nitrogen/Creatinine [Mass ratio] 26.6 mg/mg High 10- [facility] BUN/creatinine ratioOrdered By: Shayna Malhotra on 10-09-2024 Urea nitrogen/Creatinine [Mass ratio] 25.9 mg/mg High 03-25 [facility] Basophil percentageOrdered B y: Dany Richardson on 10-09-2024 Basophils/100 WBC (Bld) 0.4 % 0-1 [facility] Basophil percentageOrdered B y: Shayna Malhotra on 10-09-2024 Basophils/100 WBC (Bld) 0.5 % 0-1 [facility] Bilirubin Test strip Ql (U)O rdered By: Dany Richardson on 10-09-2024 Bilirubin Ql (U) Negative Negative [facility] Bilirubin, totalOrdered By: Dany Richardson on 10-09-2024 Bilirubin [Mass/Vol] 0.67 mg/dL 0.00-1.30 [facility] Bilirubin, totalOrdered By: Shayna Malhotra on 10-09-2024 Bilirubin [Mass/Vol] 0.62 mg/dL 0.00-1.30 [facility] CBC W/Diff, Automatedon Absolute Lymph 1.11 X10 3/uL Normal 0.83-4.51 [facility] Comment on above: Performed By: #### L 500.4050, L506.1000, L501.9985, L100.0100 #### [facility] [address] [place], [address] Absolute Neut 4.9 X10 3/uL Normal 2.0-7.7 [facility] Comment on above: Performed By: #### L 500.4050, L506.1000, L501.9985, L100.0100 #### [facility] [address] [place], [address] Basophils/100 WBC (Bld) 0.4 % Normal 0-1 [facility] Comment on above: Performed By: #### L 500.4050, L506.1000, L501.9985, L100.0100 #### [facility] [address] [place], [address] Eosinophils/100 WBC (Bld) 2.5 % Normal 0-5 [facility] Comment on above: Performed By: #### L 500.4050, L506.1000, L501.9985, L100.0100 #### [facility] [address] [place], [address] Erythrocyte distribution width (RBC) [Ratio] 15.9 % High 11.6-14.6 [facility] Comment on above: Performed By: #### L 500.4050, L506.1000, L501.9985, L100.0100 #### [facility] [address] [place], [address] Hematocrit (Bld) [Volume fraction] 40.8 % Normal 37-47 [facility] Comment on above: Performed By: #### L 500.4050, L506.1000, L501.9985, L100.0100 #### [facility] [address] [place], [address] Hemoglobin (Bld) [Mass/Vol] 13.5 g/dL Normal 12.0-15.0 [facility] Comment on above: Performed By: #### L 500.4050, L506.1000, L501.9985, L100.0100 #### [facility] [address] [place], [address] IG% 0.400 Normal 0.0-0.9 [facility] Comment on above: Result Comment: IG% - Immature Granulocytes (promyelocytes, myelocytes and metamyelocytes) > 1% indicates that a LEFT SHIFT is Present. Performed By: #### L 500.4050, L506.1000, L501.9985, L100.0100 #### [facility] [address] [place], [address] Lymphocytes/100 WBC (Bld) 16.3 % Low 19-41 [facility] Comment on above: Performed By: #### L 500.4050, L506.1000, L501.9985, L100.0100 #### [facility] [address] [place], [address] MCH (RBC) [Entitic mass] 28.9 pg Normal 27.0-32.0 [facility] Comment on above: Performed By: #### L 500.4050, L506.1000, L501.9985, L100.0100 #### [facility] [address] [place], [address] MCHC (RBC) [Mass/Vol] 33.1 g/dL Normal 32-36 [facility] Comment on above: Performed By: #### L 500.4050, L506.1000, L501.9985, L100.0100 #### [facility] [address] [place], [address] MCV (RBC) [Entitic vol] 87.4 fL Normal 81-99 [facility] Comment on above: Performed By: #### L 500.4050, L506.1000, L501.9985, L100.0100 #### [facility] [address] [place], [address] Monocytes/100 WBC (Bld) 8.3 % Normal 0-10 [facility] Comment on above: Performed By: #### L 500.4050, L506.1000, L501.9985, L100.0100 #### [facility] [address] [place], [address] Neutrophils/100 WBC (Bld) 72.1 % High 47-70 [facility] Comment on above: Performed By: #### L 500.4050, L506.1000, L501.9985, L100.0100 #### [facility] [address] [place], [address] Nucleated RBC (Bld) [#/Vol] 0 10*3/uL Normal 0-5 [facility] Comment on above: Performed By: #### L 500.4050, L506.1000, L501.9985, L100.0100 #### [facility] [address] [place], [address] Platelet mean volume (Bld) [Entitic vol] 11.8 fL Normal 6.2-12.0 [facility] Comment on above: Performed By: #### L 500.4050, L506.1000, L501.9985, L100.0100 #### [facility] [address] [place], [address] Platelets (Bld) [#/Vol] 106 10*3/uL Low 150-450 [facility] Comment on above: Performed By: #### L 500.4050, L506.1000, L501.9985, L100.0100 #### [facility] [address] [place], [address] RBC (Bld) [#/Vol] 4.67 10*6/uL Normal 4.2-5.4 [facility] Comment on above: Performed By: #### L 500.4050, L506.1000, L501.9985, L100.0100 #### [facility] [address] [place], [address] RDW SD 51.0 fl High 35.1-43.9 [facility] Comment on above: Performed By: #### L 500.4050, L506.1000, L501.9985, L100.0100 #### [facility] [address] [place], [address] WBC (Bld) [#/Vol] 6.8 10*3/uL Normal 4.4-11.0 [facility] Comment on above: Performed By: #### L 500.4050, L506.1000, L501.9985, L100.0100 #### [facility] [address] [place], [address] Absolute Lymph 0.97 X10 3/uL Normal 0.83-4.51 [facility] Comment on above: Order Comment: 134 Performed By: #### L 503.0106 #### [facility] [address] [place], [address] Absolute Neut 4.4 X10 3/uL Normal 2.0-7.7 [facility] Comment on above: Order Comment: 134 Performed By: #### L 503.0106 #### [facility] [address] [place], [address] Basophils/100 WBC (Bld) 0.5 % Normal 0-1 [facility] Comment on above: Order Comment: 134 Performed By: #### L 503.0106 #### [facility] [address] [place], [address] Eosinophils/100 WBC (Bld) 1.2 % Normal 0-5 [facility] Comment on above: Order Comment: 134 Performed By: #### L 503.0106 #### [facility] [address] [place], [address] Erythrocyte distribution width (RBC) [Ratio] 15.7 % High 11.6-14.6 [facility] Comment on above: Order Comment: 134 Performed By: #### L 503.0106 #### [facility] [address] [place], [address] Hematocrit (Bld) [Volume fraction] 40.9 % Normal 37-47 [facility] Comment on above: Order Comment: 134 Performed By: #### L 503.0106 #### [facility] [address] [place], [address] Hemoglobin (Bld) [Mass/Vol] 13.5 g/dL Normal 12.0-15.0 [facility] Comment on above: Order Comment: 134 Performed By: #### L 503.0106 #### [facility] [address] [place], [address] IG% 0.300 Normal 0.0-0.9 [facility] Comment on above: Order Comment: 134 Result Comment: IG% - Immature Granulocytes (promyelocytes, myelocytes and metamyelocytes) > 1% indicates that a LEFT SHIFT is Present. Performed By: #### L 503.0106 #### [facility] [address] [place], [address] Lymphocytes/100 WBC (Bld) 16.1 % Low 19-41 [facility] Comment on above: Order Comment: 134 Performed By: #### L 503.0106 #### [facility] [address] [place], [address] MCH (RBC) [Entitic mass] 28.8 pg Normal 27.0-32.0 [facility] Comment on above: Order Comment: 134 Performed By: #### L 503.0106 #### [facility] [address] [place], [address] MCHC (RBC) [Mass/Vol] 33.0 g/dL Normal 32-36 [facility] Comment on above: Order Comment: 134 Performed By: #### L 503.0106 #### [facility] [address] [place], [address] MCV (RBC) [Entitic vol] 87.4 fL Normal 81-99 [facility] Comment on above: Order Comment: 134 Performed By: #### L 503.0106 #### [facility] [address] [place], [address] Monocytes/100 WBC (Bld) 8.4 % Normal 0-10 [facility] Comment on above: Order Comment: 134 Performed By: #### L 503.0106 #### [facility] [address] [place], [address] Neutrophils/100 WBC (Bld) 73.5 % High 47-70 [facility] Comment on above: Order Comment: 134 Performed By: #### L 503.0106 #### [facility] [address] [place], [address] Nucleated RBC (Bld) [#/Vol] 0 10*3/uL Normal 0-5 [facility] Comment on above: Order Comment: 134 Performed By: #### L 503.0106 #### [facility] [address] [place], [address] Platelet mean volume (Bld) [Entitic vol] 10.8 fL Normal 6.2-12.0 [facility] Comment on above: Order Comment: 134 Performed By: #### L 503.0106 #### [facility] [address] [place], [address] Platelets (Bld) [#/Vol] 107 10*3/uL Low 150-450 [facility] Comment on above: Order Comment: 134 Performed By: #### L 503.0106 #### [facility] [address] [place], [address] RBC (Bld) [#/Vol] 4.68 10*6/uL Normal 4.2-5.4 [facility] Comment on above: Order Comment: 134 Performed By: #### L 503.0106 #### [facility] [address] [place], [address] RDW SD 50.2 fl High 35.1-43.9 [facility] Comment on above: Order Comment: 134 Performed By: #### L 503.0106 #### [facility] [address] [place], [address] WBC (Bld) [#/Vol] 6.0 10*3/uL Normal 4.4-11.0 [facility] Comment on above: Order Comment: 134 Performed By: #### L 503.0106 #### [facility] [address] [place], [address] CRPon 10-09-2024 C-REACTIVE PROT 5.92 mg/L High 0.0-3.0 [facility] Comment on above: Performed By: #### L 503.0106 #### [facility] [address] [place], [address] Carbon dioxide, total [Moles /volume] in Central venous bloodOrdered By: Dany Richardson on 10-09-2024 CO2 [Moles/Vol] 21.0 mmol/L 21.0-32.0 [facility] Carbon dioxide, total [Moles /volume] in Central venous bloodOrdered By: Shayna Malhotra on 10-09-2024 CO2 [Moles/Vol] 22.6 mmol/L 21.0-32.0 [facility] Chloride assayOrdered By: Nolan Richardson on 10-09-2024 Chloride [Moles/Vol] 106 mmol/L 98-108 [facility] Chloride assayOrdered By: Maryanne Malhotra on 10-09-2024 Chloride [Moles/Vol] 104 mmol/L 98-108 [facility] Comprehensive Metabolic Prof ilon 10-09-2024 Albumin [Mass/Vol] 3.8 g/dL Normal 3.4-4.8 [facility] Comment on above: Performed By: #### L 500.4050, L506.1000, L501.9985, L100.0100 #### [facility] [address] [place], [address] Albumin/Globulin [Mass ratio] 0.8 {ratio} Low 0.9-2.4 [facility] Comment on above: Performed By: #### L 500.4050, L506.1000, L501.9985, L100.0100 #### [facility] [address] [place], [address] ALK PHOS 135 U/L High 35-104 [facility] Comment on above: Performed By: #### L 500.4050, L506.1000, L501.9985, L100.0100 #### [facility] [address] [place], [address] ALT [Catalytic activity/Vol] 23 U/L Normal <=34 [facility] [facility] Comment on above: Performed By: #### L 500.4050, L506.1000, L501.9985, L100.0100 #### [facility] [address] [place], [address] AST [Catalytic activity/Vol] 40 U/L High <=31 [facility] Comment on above: Result Comment: Hemo lysis present, Results??could be affected. ?? Performed By: #### L 500.4050, L506.1000, L501.9985, L100.0100 #### [facility] [address] [place], [address] Bilirubin [Mass/Vol] 0.67 mg/dL Normal 0.00-1.30 [facility] Comment on above: Performed By: #### L 500.4050, L506.1000, L501.9985, L100.0100 #### [facility] [address] [place], [address] BUN/CRE 26.6 RATIO High 10-20 [facility] Comment on above: Performed By: #### L 500.4050, L506.1000, L501.9985, L100.0100 #### [facility] [address] [place], [address] Calcium [Mass/Vol] 9.7 mg/dL Normal 7.6-11.0 [facility] Comment on above: Performed By: #### L 500.4050, L506.1000, L501.9985, L100.0100 #### [facility] [address] [place], [address] Chloride [Moles/Vol] 106 mmol/L Normal 98-108 [facility] Comment on above: Performed By: #### L 500.4050, L506.1000, L501.9985, L100.0100 #### [facility] [address] [place], [address] CO2 [Moles/Vol] 21.0 mmol/L Normal 21.0-32.0 [facility] Comment on above: Performed By: #### L 500.4050, L506.1000, L501.9985, L100.0100 #### [facility] [address] [place], [address] Creatinine [Mass/Vol] 0.88 mg/dL Normal 0.70-1.20 [facility] Comment on above: Performed By: #### L 500.4050, L506.1000, L501.9985, L100.0100 #### [facility] [address] [place], [address] ECRCL 81.27 ml/min Normal 50-250 [facility] Comment on above: Performed By: #### L 500.4050, L506.1000, L501.9985, L100.0100 #### [facility] [address] [place], [address] GAP 11 Normal 5-15 [facility] Comment on above: Performed By: #### L 500.4050, L506.1000, L501.9985, L100.0100 #### [facility] [address] [place], [address] GFR/1.73 sq M.predicted among non-blacks MDRD (S/P/Bld) [Vol rate/Area] 70 mL/min/{1.73_m2} Normal >60 [facility] Comment on above: Result Comment: mL/m in/1.73m2 CKD-EPI Creatinine Equation (2020) Performed By: #### L 500.4050, L506.1000, L501.9985, L100.0100 #### [facility] [address] [place], [address] Globulin (S) [Mass/Vol] 4.6 g/dL High 2.2-4.2 [facility] Comment on above: Performed By: #### L 500.4050, L506.1000, L501.9985, L100.0100 #### [facility] [address] [place], [address] Glucose [Mass/Vol] 138 mg/dL High 70-99 [facility] Comment on above: Performed By: #### L 500.4050, L506.1000, L501.9985, L100.0100 #### [facility] [address] [place], [address] Potassium [Moles/Vol] 4.5 mmol/L Normal 3.3-5.1 [facility] Comment on above: Result Comment: Hemo lysis present, Results??could be affected. ?? Performed By: #### L 500.4050, L506.1000, L501.9985, L100.0100 #### [facility] [address] [place], [address] Sodium [Moles/Vol] 138 mmol/L Normal 133-145 [facility] Comment on above: Performed By: #### L 500.4050, L506.1000, L501.9985, L100.0100 #### [facility] [address] [place], [address] T PROT 8.4 g/dL Normal 5.9-8.4 [facility] Comment on above: Performed By: #### L 500.4050, L506.1000, L501.9985, L100.0100 #### [facility] [address] [place], [address] Urea nitrogen [Mass/Vol] 23 mg/dL High 4-19 [facility] Comment on above: Performed By: #### L 500.4050, L506.1000, L501.9985, L100.0100 #### [facility] [address] [place], [address] Albumin [Mass/Vol] 4.0 g/dL Normal 3.4-4.8 [facility] Comment on above: Order Comment: 134 Performed By: #### L 501.080 #### [facility] [address] [place], [address] Albumin/Globulin [Mass ratio] 0.8 {ratio} Low 0.9-2.4 [facility] Comment on above: Order Comment: 134 Performed By: #### L 501.080 #### [facility] [address] [place], [address] ALK PHOS 148 U/L High 35-104 [facility] Comment on above: Order Comment: 134 Performed By: #### L 501.080 #### [facility] [address] [place], [address] ALT [Catalytic activity/Vol] 26 U/L Normal <=34 [facility] Comment on above: Order Comment: 134 Performed By: #### L 501.080 #### [facility] [address] [place], [address] AST [Catalytic activity/Vol] 37 U/L High <=31 [facility] Comment on above: Order Comment: 134 Performed By: #### L 501.080 #### [facility] [address] [place], [address] Bilirubin [Mass/Vol] 0.62 mg/dL Normal 0.00-1.30 [facility] Comment on above: Order Comment: 134 Performed By: #### L 501.080 #### [facility] [address] [place], [address] BUN/CRE 25.9 RATIO High 10-20 [facility] Comment on above: Order Comment: 134 Performed By: #### L 501.080 #### [facility] [address] [place], [address] Calcium [Mass/Vol] 9.6 mg/dL Normal 7.6-11.0 [facility] Comment on above: Order Comment: 134 Performed By: #### L 501.080 #### [facility] [address] [place], [address] Chloride [Moles/Vol] 104 mmol/L Normal 98-108 [facility] Comment on above: Order Comment: 134 Performed By: #### L 501.080 #### [facility] [address] [place], [address] CO2 [Moles/Vol] 22.6 mmol/L Normal 21.0-32.0 [facility] Comment on above: Order Comment: 134 Performed By: #### L 501.080 #### [facility] [address] [place], [address] Creatinine [Mass/Vol] 0.82 mg/dL Normal 0.70-1.20 [facility] Comment on above: Order Comment: 134 Performed By: #### L 501.080 #### [facility] [address] [place], [address] GAP 12 Normal 5-15 [facility] Comment on above: Order Comment: 134 Performed By: #### L 501.080 #### [facility] [address] [place], [address] GFR/1.73 sq M.predicted among non-blacks MDRD (S/P/Bld) [Vol rate/Area] 76 mL/min/{1.73_m2} Normal >60 [facility] Comment on above: Order Comment: 134 Result Comment: mL/m in/1.73m2 CKD-EPI Creatinine Equation (2020) Performed By: #### L 501.080 #### [facility] [address] [place], [address] Globulin (S) [Mass/Vol] 4.8 g/dL High 2.2-4.2 [facility] Comment on above: Order Comment: 134 Performed By: #### L 501.080 #### [facility] [address] [place], [address] Glucose [Mass/Vol] 173 mg/dL High 70-99 [facility] Comment on above: Order Comment: 134 Performed By: #### L 501.080 #### [facility] [address] [place], [address] Potassium [Moles/Vol] 4.2 mmol/L Normal 3.3-5.1 [facility] Comment on above: Order Comment: 134 Performed By: #### L 501.080 #### [facility] [address] [place], [address] Sodium [Moles/Vol] 138 mmol/L Normal 133-145 [facility] Comment on above: Order Comment: 134 Performed By: #### L 501.080 #### [facility] [address] [place], [address] T PROT 8.9 g/dL High 5.9-8.4 [facility] Comment on above: Order Comment: 134 Performed By: #### L 501.080 #### [facility] [address] [place], [address] Urea nitrogen [Mass/Vol] 21 mg/dL High 4-19 [facility] Comment on above: Order Comment: 134 Performed By: #### L 501.080 #### [facility] [address] [place], [address] Emergency Department Summary on 10-09-[address] [facility] Medical Records Department [address] [place] [address] Emergency Department Summary 10/09/24 MR#: [id number] Acct: [id number] Name: VIDA NINA Rep #: [id number] : 1950 73 From: Dany Richardson MD PCP: Dr. Shayna Malhotra MD Status:REG ER Location: ED HPI History of Present Illness Chief Complaint: Lower Extremity Injury Narrative Narrative: 73-year-old female states that she had pins placed in her left foot approximately 15 years ago [place] after breaking her heel. She is currently in [facility]. She states for the last 2 weeks she has been having increasing foot pain. She states that on Tuesday, probably of the last week, she had x-rays obtained at the [facility]. She went and saw Dr. Shayna [...] History powder primary doctor blood sugar diagnostic ([facility] 11/23/21 Unknown History Lite Strips) blood-glucose meter ([facility] 11/23/21 Unknown History Lite Meter kit) [facility] History Lancets) nystatin 100,000 unit/gram topical 1 applic topical TID #0 grams Unknown Rx powder ([facility]) quetiapine 100 mg tablet 300 mg [...] ROS Narrative (more content not included)... Normal [facility] Eosinophil percentageOrdered By: Dany Richardson on 10-09-2024 Eosinophils/100 WBC (Bld) 2.5 % 0-5 [facility] Eosinophil percentageOrdered By: Shayna Malhotra on 10-09-2024 Eosinophils/100 WBC (Bld) 1.2 % 0-5 [facility] Epithelial cells.squamous LM Ql (Urine sed)Ordered By: Dany Richardson on 10-09-2024 Epithelial cells.squamous LM.HPF (Urine sed) [#/Area] 0 /[HPF] 5-10 [facility] Erythrocyte Sed Rateon 10-09 SED RATE 49 mm/hr High 0-30 [facility] Comment on above: Performed By: #### L 503.0106 #### [facility] [place], [address] Erythrocyte distribution wid th (RBC) [Ratio]Ordered By: Dany Richardson on 10-09-2024 Erythrocyte distribution width (RBC) [Entitic vol] 51.0 fL High 35.1-43.9 [facility] Erythrocyte distribution wid th (RBC) [Ratio]Ordered By: Shayna Malhotra on 10-09-2024 Erythrocyte distribution width (RBC) [Entitic vol] 50.2 fL High 35.1-43.9 [facility] Erythrocyte distribution wid th ratioOrdered By: Dany Richardson on 10-09-2024 Erythrocyte distribution width (RBC) [Ratio] 15.9 % High 11.6-14.6 [facility] Erythrocyte distribution wid th ratioOrdered By: Shayna Malhotra on 10-09-2024 Erythrocyte distribution width (RBC) [Ratio] 15.7 % High 11.6-14.6 [facility] Erythrocyte distribution wid th standard deviationOrdered By: Shayna Malhotra on 10-09-2024 Erythrocyte distribution width (RBC) [Ratio] 50.2 fl High 35.1-43.9 [facility] Erythrocyte sedimentation ra teOrdered By: Missael Lomeli on 10-09-2024 ESR (Bld) [Velocity] 49 mm/h High 0-30 [facility] Estimation of creatinine silvana aranceOrdered By: Dany Richardson on 10-09-2024 Estimated Creatinine Clearance Calc 81.27 ml/min 50-250 [facility] Extremity Lower without Cont raon 10-09-2024 Extremity Lower without Contra [facility] Imaging Services [address] [place] [address] Extremity Lower without Contra MR#: [id number] Acct: [id number] Name: VIDA NINA Rep #: [id number] : 1950 F 73 From: Saul Sanchez MD PCP: Dr. Shayna Malhotra MD Status: ADM IN Study: Extremity Lower without Contra Date of Exam: 0 10/09/24 Exam# [id number] Ordering Dr: Missael Hernandez DO PROCEDURE: EXTREMITY [...] Hernandez at 2:20 a.m. 10/10/2024 Reading Location: [facility] CC: Dr. Missael Hernandez DO; Dr. Shayna Malhotra MD Distributor Operator: Signed Normal [facility] Foot min 3 Viewson 5 Foot min [address] [facility] Imaging Services [address] [place], [place] [address] Foot min 3 Views MR#: [id number] Acct: [id number] Name: VIDA NINA Rep #: [id number] : 1950 F 73 From: Alok Jiménez MD PCP: Dr. Shayna Malhotra MD Status: [facility] ER Study: Foot min 3 Views Date of Exam: 10/09/24 Exam# [id number] Ordering Dr: Dany Richardson MD EXAM: LEFT [...] Dany Richardson MD; Dr. Shayna Malhotra MD Distributor Operator: Signed Normal [facility] GFR/1.73 sq M.predicted saida g non-blacks MDRD (S/P/Bld) [Vol rate/Area]Ordered By: Dany Richardson on 10-09-2024 Estimated GFR (MDRD) Non-Af Amer 70 >60 [facility] Comment on above: mL/min/1.73m2 CKD-EP I Creatinine Equation (2020) GFR/1.73 sq M.predicted saida g non-blacks MDRD (S/P/Bld) [Vol rate/Area]Ordered By: Shayna Malhotra on 10-09-2024 Estimated GFR (MDRD) Non-Af Amer 76 >60 [facility] Comment on above: mL/min/1.73m2 CKD-EP I Creatinine Equation (2020) Glomerular filtration rate ( GFR) estimation/1.73 sq m using serum, plasma, or whole bOrdered By: Shayna Malhotra on 10-09-2024 GFR/1.73 sq M.predicted among non-blacks MDRD (S/P/Bld) [Vol rate/Area] 76 mL/min/{1.73_m2} >60 [facility] Comment on above: mL/min/1.73m2 CKD-EP I Creatinine Equation (2020) Glucose Ql (U)Ordered By: Nolan Richardson on 10-09-2024 Glucose (U) [Mass/Vol] 1000 mg/dL High Normal [facility] H AND P Exam - [facility] 10-09-2024 H&P Exam - Hospitalist [facility] Medical Records Department [address] [place] [address] H P Exam - Hospitalist 10/09/242118 MR#: [id number] Acct: [id number] Name: VIDA NINA Rep #: [id number] : 1950 73 From: Missael Hernandez DO PCP: Dr. 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 [facility] Medical History Obesity Anxiety Cancer Anxiety [...] topical TID #0 grams Unknown Rx powder ([facility]) quetiapine 100 mg tablet 300 mg (3 x 100 mg) PO BID #0 tabs 11/24/21 Unknown Rx aspirin 81 mg chewable tablet 81 mg PO DAILY 05/06/22 Unknown Hi (more content not included)... Normal [facility] Hematocrit Auto (Bld) [Volum e fraction]Ordered By: Dany Richardson on 10-09-2024 Hematocrit (Bld) [Volume fraction] 40.8 % -47 [facility] Hematocrit Auto (Bld) [Volum e fraction]Ordered By: Shayna Malhotra on 10-09-2024 Hematocrit (Bld) [Volume fraction] 40.9 % 37-47 [facility] Hemoglobin A1con 10-09-2024 HbA1c (Bld) [Mass fraction] 7.2 % High <=5.6 [facility] Comment on above: Order Comment: 134 Result Comment: Norm al < 5.7 % Prediabetic 5.7 - 6.4 % Diabetic >or= 6.5 % Please note range changes. Performed By: #### L 501.080 #### [facility] [address] [place], [place] [address], [address] Hemoglobin A1c percentageOrd ered By: Missael Lomeli on 10-09-2024 HbA1c (Bld) [Mass fraction] 7.2 % High <5.7 [facility] Comment on above: Normal < 5.7 % Predi abetic 5.7 - 6.4 % Diabetic >or= 6.5 % Please note range changes. Hemoglobin A1c percentageOrd ered By: Shayna Malhotra on 10-09-2024 HbA1c (Bld) [Mass fraction] 7.2 % High <5.7 [facility] Comment on above: Normal < 5.7 % Predi abetic 5.7 - 6.4 % Diabetic >or= 6.5 % Please note range changes. Hemoglobin measurementOrdere d By: Dany Richardson on 10-09-2024 Hemoglobin (Bld) [Mass/Vol] 13.5 g/dL 12.0-15.0 [facility] Hemoglobin measurementOrdere d By: Shayna Malhotra on 10-09-2024 Hemoglobin (Bld) [Mass/Vol] 13.5 g/dL 12.0-15.0 [facility] Immature granulocytes/100 WB C Auto (Bld)Ordered By: Dany Richardson on 10-09-2024 Immature granulocytes/100 WBC (Bld) 0.400 % 0.0-0.9 [facility] Comment on above: IG% - Immature Granu locytes (promyelocytes, myelocytes and metamyelocytes) > 1% indicates that a LEFT SHIFT is Present. Immature granulocytes/100 WB C Auto (Bld)Ordered By: Shayna Malhotra on 10-09-2024 Immature granulocytes/100 WBC (Bld) 0.300 % 0.0-0.9 [facility] Comment on above: IG% - Immature Granu locytes (promyelocytes, myelocytes and metamyelocytes) > 1% indicates that a LEFT SHIFT is Present. Ketones Test strip Ql (U)Ord ered By: Dany Richardson on 10-09-2024 Ketones Ql (U) Negative Negative [facility] - Chemistry and C hemistry - challengeOrdered By: Dany Richardson on 10-09-2024 AST [Catalytic activity/Vol] 40 U/L High <32 [facility] Comment on above: Hemolysis present, R esults could be affected. Laboratory - Chemistry and C hemistry - challengeOrdered By: Shayna Malhotra on 10-09-2024 AST [Catalytic activity/Vol] 37 U/L High <32 [facility] Lymphocytes Auto (Unsp spec) [#/Vol]Ordered By: Dany Richardson on 10-09-2024 Lymphocytes (Bld) [#/Vol] 1.11 10*3/uL 0.83-4.51 [facility] Lymphocytes Auto (Unsp spec) [#/Vol]Ordered By: Shayna Malhotra on 10-09-2024 Lymphocytes (Bld) [#/Vol] 0.97 10*3/uL 0.83-4.51 [facility] Lymphocytes/100 WBC Auto (Un sp spec)Ordered By: Dany Richardson on 10-09-2024 Lymphocytes/100 WBC (Bld) 16.3 % Low 19-41 [facility] Lymphocytes/100 WBC Auto (Un sp spec)Ordered By: Shayna Malhotra on 10-09-2024 Lymphocytes/100 WBC (Bld) 16.1 % Low 19-41 [facility] MCV (mean corpuscular volume ) determinationOrdered By: Dany Richardson on 10-09-2024 MCV (RBC) [Entitic vol] 87.4 fL 81-99 [facility] MCV (mean corpuscular volume ) determinationOrdered By: Shayna Malhotra on 10-09-2024 MCV (RBC) [Entitic vol] 87.4 fL 81-99 [facility] Magnesiumon 10-09-2024 Magnesium [Mass/Vol] 2.1 mg/dL Normal 1.5-2.2 [facility] Comment on above: Performed By: #### L 503.0106 #### [facility] [address] [place] [address], [address] Mean corpuscular hemoglobin (MCH) determinationOrdered By: Dany Richardson on 10-09-2024 MCH (RBC) [Entitic mass] 28.9 pg 27.0-32.0 [facility] Mean corpuscular hemoglobin (MCH) determinationOrdered By: Shayna Malhotra on 10-09-2024 MCH (RBC) [Entitic mass] 28.8 pg 27.0-32.0 [facility] Mean corpuscular hemoglobin concentration (MCHC) determinationOrdered By: Dany Richardson on 10-09-2024 MCHC (RBC) [Mass/Vol] 33.1 g/dL [facility] Mean corpuscular hemoglobin concentration (MCHC) determinationOrdered By: Shayna Malhotra on 10-09-2024 MCHC (RBC) [Mass/Vol] 33.0 g/dL - [facility] Mean platelet volume determi nationOrdered By: Dany Richardson on 10-09-2024 Platelet mean volume (Bld) [Entitic vol] 11.8 fL 6.2-12.0 [facility] Mean platelet volume determi nationOrdered By: Shayna Malhotra on 10-09-2024 Platelet mean volume (Bld) [Entitic vol] 10.8 fL 6.2-12.0 [facility] Microscopic analysis of urin e for red blood cells (RBC)Ordered By: Dany Richardson on 10-09-2024 Microscopic analysis of urine for red blood cells (RBC) 10-25 SEEN /hpf 0-5 [facility] Urine RBC 10-25 SEEN /hpf 0-5 [facility] Monocyte percentageOrdered B y: Dany Richardson on 10-09-2024 Monocytes/100 WBC (Bld) 8.3 % 0-10 [facility] Monocyte percentageOrdered B y: Shayna Malhotra on 10-09-2024 Monocytes/100 WBC (Bld) 8.4 % 0-10 [facility] Mucus LM Ql (Urine sed)Order ed By: Dany Richardson on 10-09-2024 Mucus Ql (Urine sed) 0 SEEN /hpf [facility] Neutrophil percentageOrdered By: Dany Richardson on 10-09-2024 Neutrophils/100 WBC (Bld) 72.1 % High 47-70 [facility] Neutrophil percentageOrdered By: Shayna Malhotra on 10-09-2024 Neutrophils/100 WBC (Bld) 73.5 % High 47-70 [facility] Nitrite Test strip Ql (U)Ord ered By: Dany Richardson on 10-09-2024 Nitrite Ql (U) Negative Negative [facility] No Panel InformationOrdered By: Missael Lomeli on 10-09-2024 Urine Buprenorphine Qualitative Negative < 200 ng/mL [facility] Urine Oxycodone Screen Negative < 100 ng/mL [facility] Nucleated red blood cell per centageOrdered By: Dany Richardson on 10-09-2024 Nucleated RBC/100 WBC (Bld) [Ratio] 0 % 0- [facility] Nucleated red blood cell per centageOrdered By: Shayna Malhotra on 10-09-2024 Nucleated RBC/100 WBC (Bld) [Ratio] 0 % 0- [facility] Platelet countOrdered By: Nolan Richardson on 10-09-2024 Platelets (Bld) [#/Vol] 106 10*3/uL Low 150-450 [facility] Platelet countOrdered By: Maryanne Malhotra on 10-09-2024 Platelets (Bld) [#/Vol] 107 10*3/uL Low 150-450 [facility] Potassium (Unsp spec) [Mass/ Vol]Ordered By: Dany Richardson on 10-09-2024 Potassium [Moles/Vol] 4.5 mmol/L 3.3-5.1 [facility] Comment on above: Hemolysis present, R esults could be affected. Potassium (Unsp spec) [Mass/ Vol]Ordered By: Shayna Malhotra on 10-09-2024 Potassium [Moles/Vol] 4.2 mmol/L 3.3-5.1 [facility] Potassium measurement (mass/ volume)Ordered By: Shayna Malhotra on 10-09-2024 Potassium (Unsp spec) [Mass/Vol] 4.2 mmol/L 3.3-5.1 [facility] Protein Test strip Ql (U)Ord ered By: Dany Richardson on 10-09-2024 Protein Ql (U) 30 mg/dl High Negative [facility] Quantitative urine opiates m easurementOrdered By: Missael Lomeli on 10-09-2024 Opiates Ql (U) Negative < 300 ng/mL [facility] RBC Auto (Bld) [#/Vol]Ordere d By: Dany Richardson on 10-09-2024 RBC (Bld) [#/Vol] 4.67 10*6/uL 4.2-5.4 [facility] RBC Auto (Bld) [#/Vol]Ordere d By: Shayna Malhotra on 10-09-2024 RBC (Bld) [#/Vol] 4.68 10*6/uL 4.2-5.4 [facility] Screening urine fentanyl renay surementOrdered By: Missael Lomeli on 10-09-2024 fentaNYL Screen Ql (U) Negative [facility] Serum creatinine measurement (mass/volume)Ordered By: Dany Richardson on 10-09-2024 Creatinine [Mass/Vol] 0.88 mg/dL 0.70-1.20 [facility] Serum creatinine measurement (mass/volume)Ordered By: Shayna Malhotra on 10-09-2024 Creatinine [Mass/Vol] 0.82 mg/dL 0.70-1.20 [facility] Serum globulin measurementOr dered By: Dany Richardson on 10-09-2024 Globulin (S) [Mass/Vol] 4.6 g/dL High 2.2-4.2 [facility] Serum globulin measurementOr dered By: Shayna Malhotra on 10-09-2024 Globulin (S) [Mass/Vol] 4.8 g/dL High 2.2-4.2 [facility] Serum glucose measurement (m ass/volume)Ordered By: Dany Richardson on 10-09-2024 Glucose [Mass/Vol] 138 mg/dL High 70-99 [facility] Serum glucose measurement (m ass/volume)Ordered By: Shayna Malhotra on 10-09-2024 Glucose [Mass/Vol] 173 mg/dL High 70-99 [facility] Serum or plasma C reactive p rotein measurement (mass/volume)Ordered By: Missael Lomeli on 10-09-2024 CRP [Mass/Vol] 5.92 mg/L High 0.0-3.0 [facility] Serum or plasma alanine burnette otransferase (ALT) measurementOrdered By: Dany Richardson on 10-09-2024 ALT [Catalytic activity/Vol] 23 U/L <35 [facility] Serum or plasma alanine burnette otransferase (ALT) measurementOrdered By: Shayna Malhotra on 10-09-2024 ALT [Catalytic activity/Vol] 26 U/L <35 [facility] Serum or plasma albumin kim urement (mass/volume)Ordered By: Dany Richardson on 10-09-2024 Albumin [Mass/Vol] 3.8 g/dL 3.4-4.8 [facility] Serum or plasma albumin kim urement (mass/volume)Ordered By: Shayna Malhotra on 10-09-2024 Albumin [Mass/Vol] 4.0 g/dL 3.4-4.8 [facility] Serum or plasma albumin/glob ulin mass ratioOrdered By: Dany Richardson on 10-09-2024 Albumin/Globulin [Mass ratio] 0.8 {ratio} Low 0.9-2.4 [facility] Serum or plasma albumin/glob ulin mass ratioOrdered By: Shayna Malhotra on 10-09-2024 Albumin/Globulin [Mass ratio] 0.8 {ratio} Low 0.9-2.4 [facility] Serum or plasma alkaline regina sphatase measurementOrdered By: Dany Richardson on 10-09-2024 ALP [Catalytic activity/Vol] 135 U/L High 35-104 [facility] Serum or plasma alkaline regina sphatase measurementOrdered By: Shayna Malhotra on 10-09-2024 ALP [Catalytic activity/Vol] 148 U/L High 35-104 [facility] Serum or plasma calcium kim urement (mass/volume)Ordered By: Dany Richardson on 10-09-2024 Calcium [Mass/Vol] 9.7 mg/dL 7.6-11.0 [facility] Serum or plasma calcium kim urement (mass/volume)Ordered By: Shayna Malhotra on 10-09-2024 Calcium [Mass/Vol] 9.6 mg/dL 7.6-11.0 [facility] Serum or plasma ethanol kim urement (mass/volume)Ordered By: Missael Lomeli on 10-09-2024 Ethanol [Mass/Vol] mg/dL <10.1 [facility] Comment on above: This test is for med ical purposes only. The legal definition of intoxication varies according to local law. Serum or plasma urea nitroge n measurement (mass/volume)Ordered By: Dany Richardson on 10-09-2024 Urea nitrogen [Mass/Vol] 23 mg/dL High 09-22 [facility] Serum or plasma urea nitroge n measurement (mass/volume)Ordered By: Shayna Malhotra on 10-09-2024 Urea nitrogen [Mass/Vol] 21 mg/dL High 09-22 [facility] Sodium levelOrdered By: Dany Richardson on 10-09-2024 Sodium [Moles/Vol] 138 mmol/L 133-145 [facility] Sodium levelOrdered By: Paty Malhotra on 10-09-2024 Sodium [Moles/Vol] 138 mmol/L 133-145 [facility] Squamous epithelial cells de tection in urine sediment by light microscopyOrdered By: Dany Richardson on 10-09-2024 Epithelial cells.squamous LM Ql (Urine sed) 0-5 SEEN /hpf 5-10 [facility] TSH DL <= 0.005 mIU/L QnOrde red By: Missael Lomeli on 10-09-2024 TSH Qn 4.730 uIU/mL High 0.300-4.20 0 [facility] Thyroid Stim Hormone (TSH)on 10-09-2024 TSH 4.730 uIU/mL High 0.300-4.20 0 [facility] Comment on above: Performed By: #### L 503.0106 #### [facility] [address] [place], [address] Total proteinOrdered By: Treasure Richardson on 10-09-2024 Protein [Mass/Vol] 8.4 g/dL 5.9-8.4 [facility] Total proteinOrdered By: Evi Malhotra on 10-09-2024 Protein [Mass/Vol] 8.9 g/dL High 5.9-8.4 [facility] Transitional cells LM Ql (Ur ine sed)Ordered By: Dany Richardson on 10-09-2024 Urine Transitional Epithelial Cells 0-5 SEEN /hpf 0-5 [facility] Transitional cells detection in urine sediment by light microscopyOrdered By: Dany Richardson on 10-09-2024 Transitional cells LM Ql (Urine sed) 0-5 SEEN /hpf 0-5 [facility] Urinalysis, Completeon 10-09 AMORPHOUS 1+ Normal [facility] Comment on above: Order Comment: JOSE L CTOR TO SPECIFY Performed By: #### L [id number] #### [facility] [address] [place], [address] EPI,SQUAMOUS 0-5 SEEN Normal 5-10 [facility] Comment on above: Order Comment: JOSE L CTOR TO SPECIFY Performed By: #### L [id number] #### [facility] [address] [place], [address] EPI,TRANSITION 0-5 SEEN Normal 0-5 [facility] Comment on above: Order Comment: JOSE L CTOR TO SPECIFY Performed By: #### L [id number] #### [facility] [address] [place], [address] RBC 10-25 SEEN Normal 0-5 [facility] Comment on above: Order Comment: JOSE L CTOR TO SPECIFY Performed By: #### L [id number] #### [facility] [address] [place], [address] BACTERIA 4+ /hpf Normal None Seen [facility] Comment on above: Order Comment: JOSE L CTOR TO SPECIFY Performed By: #### L [id number] #### [facility] [address] [place], [address] WBC >100 SEEN Normal 0-5 [facility] Comment on above: Order Comment: JOSE L CTOR TO SPECIFY Performed By: #### L [id number] #### [facility] [address] [place], [address] Mucus Ql (Urine sed) 0 SEEN Normal [facility] Comment on above: Order Comment: JOSE L CTOR TO SPECIFY Performed By: #### L [id number] #### [facility] [address] [place], [address] Urine Drug Screen (VISTA)on 10-09-2024 AMPHETAMINES Negative Normal <1000 ng/mL [facility] Comment on above: Order Comment: UNK Performed By: #### L [id number] #### [facility] [address] [place], [address] BARBITIURATES Negative Normal < 200 ng/mL [facility] Comment on above: Order Comment: UNK Performed By: #### L [id number] #### [facility] [address] [place], [address] BENZODIAZIPINE Negative Normal < 200 ng/mL [facility] Comment on above: Order Comment: UNK Performed By: #### L [id number] #### [facility] [address] [place], [address] BUP Ur Drug Scr Negative Normal < 200 ng/mL [facility] Comment on above: Order Comment: UNK Performed By: #### L [id number] #### [facility] [address] [place], [address] COCAINE Negative Normal < 300 ng/mL [facility] Comment on above: Order Comment: UNK Performed By: #### L [id number] #### [facility] [address] [place], [address] Fentanyl Negative Normal [facility] Comment on above: Order Comment: UNK Performed By: #### L [id number] #### [facility] [address] [place], [address] METHADONE Negative Normal < 300 ng/mL [facility] Comment on above: Order Comment: UNK Performed By: #### L [id number] #### [facility] [address] [place], [address] OPIATES Negative Normal < 300 ng/mL [facility] Comment on above: Order Comment: UNK Performed By: #### L [id number] #### [facility] [address] [place], [address] OXYCODONE Negative Normal < 100 ng/mL [facility] Comment on above: Order Comment: UNK Performed By: #### L [id number] #### [facility] [address] [place], [address] PCP Negative Normal < 25 ng/mL [facility] Comment on above: Order Comment: UNK Performed By: #### L [id number] #### [facility] [address] [facility] [id number] THC Negative Normal < 50 ng/mL [facility] Comment on above: Order Comment: UNK Performed By: #### L [id number] #### [facility] [address] [place], [place], [id number] Urine benzodiazepine levelOr dered By: Missael Lomeli on 10-09-2024 Benzodiazepines Ql (U) Negative < 200 ng/mL [facility] Urine blood detectionOrdered By: Dany Richardson on 10-09-2024 Urine Occult Blood 150 /ul High Negative [facility] Urine clarityOrdered By: Treasure Richardson on 10-09-2024 Clarity (U) Cloudy Clear [facility] Urine cocaine levelOrdered B y: Missael Lomeli on 10-09-2024 Cocaine Ql (U) Negative < 300 ng/mL [facility] Urine color determinationOrd ered By: Dany Richardson on 10-09-2024 Color (U) Yellow Yellow [facility] Urine [id number]-[id number] abinol (THC) measurementOrdered By: Missael Lomeli on 10-09-2024 Cannabinoids Screen Ql (U) Negative < 50 ng/mL [facility] Urine glucose detectionOrder ed By: Dany Richardson on 10-09-2024 Glucose Ql (U) 1000 mg/dl High Normal [facility] Urine leukocyte esterase det ection by dipstickOrdered By: Dany Richardson on 10-09-2024 Leukocyte esterase Test strip Ql (U) 100 /ul High Negative [facility] Urine pHOrdered By: Dany chung on 10-09-2024 pH (U) 5.0 [pH] 5.0 - 8.0 [facility] Urine phencyclidine (PCP) de tectionOrdered By: Missael Lomeli on 10-09-2024 Phencyclidine Ql (U) Negative < 25 ng/mL [facility] Urine sediment bacteria coun t by microscopy (number/high power field)Ordered By: Dany Richardson on 10-09-2024 Bacteria LM.HPF (Urine sed) [#/Area] 4 /[HPF] None Seen [facility] Urine specific gravity measu rementOrdered By: Dany Richardson on 10-09-2024 Specific gravity (U) [Rel density] 1.020 1.002-1.03 0 [facility] Urine urobilinogen measureme ntOrdered By: Dany Rochelleshruthi on 10-09-2024 Urobilinogen Ql (U) 1 mg/dl High Normal [facility] Urobilinogen Ql (U)Ordered B y: Dany Byrdshruthi on 10-09-2024 Urobilinogen (U) [Mass/Vol] 1 mg/dL High Normal [facility] Vitamin B12on 10-09-2024 Cobalamin (Vitamin B12) [Mass/Vol] 379 pg/mL Normal 180-914 [facility] Comment on above: Performed By: #### L 503.0106 #### [facility] [address] [place], [place], [id number] Vitamin B12 ser/plasOrdered By: Missael Lomeli on 10-09-2024 Cobalamin (Vitamin B12) [Mass/Vol] 379 pg/mL 180-914 [facility] Vitamin D, 25-hydroxyOrdered By: Shayna Malhotra on 10-09-2024 Vitamin D 25-Hydroxy 30.0 ng/mL 30-100 [facility] Comment on above: Vitamin D StatusDefi ciency: <20 ng/mL (50nmol/L)Insufficiency: 20-30 ng/mL (50-75 nmol/L)Sufficiency: 30-100 ng/mL (75-250 nmol/L)Toxicity: >100 ng/mL (>250 nmol/L) Vitamin D,25 Hydroxyon 10-09 Vitamin D 25-OH 30.0 ng/mL Normal 30-100 [facility] Comment on above: Order Comment: 134 Result Comment: Maricarmen min D Status Deficiency: <20 ng/mL (50nmol/L) Insufficiency: 20-30 ng/mL (50-75 nmol/L) Sufficiency: 30-100 ng/mL (75-250 nmol/L) Toxicity: >100 ng/mL (>250 nmol/L) Performed By: #### L 501.080 #### [facility] [address] [place], [address] White blood cell (WBC) count Ordered By: Dany Richardson on 10-09-2024 WBC (Bld) [#/Vol] 6.8 10*3/uL 4.4-11.0 [facility] White blood cell (WBC) count Ordered By: Shayna Malhotra on 10-09-2024 WBC (Bld) [#/Vol] 6.0 10*3/uL 4.4-11.0 [facility] White blood cell countOrdere d By: Dany Richardson on 10-09-2024 Urine WBC >100 SEEN /hpf 0-5 [facility] White blood cell count >100 SEEN /hpf 0-5 [facility] CBC W/Diff, Automatedon Absolute Neut Normal 2.0-7.7 [facility] Comment on above: Order Comment: 134 Result Comment: UTO X2 Performed By: #### L 500.4050, L506.1000, L501.9985, L100.0100 #### [facility] [address] [place], [address] HCT Normal 37-47 [facility] Comment on above: Order Comment: 134 Result Comment: UTO X2 Performed By: #### L 500.4050, L506.1000, L501.9985, L100.0100 #### [facility] [address] [place], [address] HGB Normal 12.0-15.0 [facility] Comment on above: Order Comment: 134 Result Comment: UTO X2 Performed By: #### L [id number], L506.1000, [id number], L100.0100 #### [facility] [address] [place], [address] MCH Normal 27.0-32.0 [facility] Comment on above: Order Comment: 134 Result Comment: UTO X2 Performed By: #### L [id number], L506.1000, [id number], L100.0100 #### [facility] [address] [place], [address] MCHC Normal 32-36 [facility] Comment on above: Order Comment: 134 Result Comment: UTO X2 Performed By: #### L 500.4050, L506.1000, [id number], L100.0100 #### [facility] [address] [place], [address] MCV Normal 81-99 [facility] Comment on above: Order Comment: 134 Result Comment: UTO X2 Performed By: #### L [id number], L506.1000, [id number], L100.0100 #### [facility] [address] [place], [address] NEUT% Normal 47-70 [facility] Comment on above: Order Comment: 134 Result Comment: UTO X2 Performed By: #### L [id number], L506.1000, [id number], L100.0100 #### [facility] [address] [place], [address] PLT Normal 150-450 [facility] Comment on above: Order Comment: 134 Result Comment: UTO X2 Performed By: #### L 500.4050, L506.1000, [id number], L100.0100 #### [facility] [address] [place], [address] RBC Normal 4.2-5.4 [facility] Comment on above: Order Comment: 134 Result Comment: UTO X2 Performed By: #### L 500.4050, L506.1000, [id number], L100.0100 #### [facility] [address] [place], [address] RDW CV Normal 11.6-14.6 [facility] Comment on above: Order Comment: 134 Result Comment: UTO X2 Performed By: #### L 500.4050, L506.1000, [id number], L100.0100 #### [facility] [address] [place], [address] RDW SD Normal 35.1-43.9 [facility] Comment on above: Order Comment: 134 Result Comment: UTO X2 Performed By: #### L 500.4050, L506.1000, [id number], L100.0100 #### [facility] [address] [place], [address] WBC Normal 4.4-11.0 [facility] Comment on above: Order Comment: 134 Result Comment: UTO X2 Performed By: #### L 500.4050, L506.1000, [id number], L100.0100 #### [facility] [address] [place], [address] Comprehensive Metabolic Prof ilon 10-08-2024 ALB Normal 3.4-4.8 [facility] Comment on above: Order Comment: 134 Result Comment: UTO X2 Performed By: #### L 500.4050, L506.1000, L501.9985, L100.0100 #### [facility] [address] [place], [address] ALK PHOS Normal 35-104 [facility] Comment on above: Order Comment: 134 Result Comment: UTO X2 Performed By: #### L 500.4050, L506.1000, L501.9985, L100.0100 #### [facility] [address] [place], [address] ALT Normal <=34 [facility] Comment on above: Order Comment: 134 Result Comment: UTO X2 Performed By: #### L 500.4050, L506.1000, L501.9985, L100.0100 #### [facility] [address] [place], [address] AST Normal <=31 [facility] Comment on above: Order Comment: 134 Result Comment: UTO X2 Performed By: #### L 500.4050, L506.1000, [id number], L100.0100 #### [facility] [address] [place], [address] BUN Normal 4-19 [facility] Comment on above: Order Comment: 134 Result Comment: UTO X2 Performed By: #### L 500.4050, L506.1000, [id number], L100.0100 #### [facility] [address] [place], [address] BUN/CRE Normal 10-20 [facility] Comment on above: Order Comment: 134 Result Comment: UTO X2 Performed By: #### L 500.4050, L506.1000, L501.9985, L100.0100 #### [facility] [address] [place], [address] Calcium Normal 7.6-11.0 [facility] Comment on above: Order Comment: 134 Result Comment: UTO X2 Performed By: #### L 500.4050, L506.1000, L501.9985, L100.0100 #### [facility] [address] [place], [address] CL Normal 98-108 [facility] Comment on above: Order Comment: 134 Result Comment: UTO X2 Performed By: #### L 500.4050, L506.1000, L501.9985, L100.0100 #### [facility] [address] [place], [address] CO2 Normal 21.0-32.0 [facility] Comment on above: Order Comment: 134 Result Comment: UTO X2 Performed By: #### L 500.4050, L506.1000, L501.9985, L100.0100 #### [facility] [address] [place], [address] CREAT,SERUM Normal 0.70-1.20 [facility] Comment on above: Order Comment: 134 Result Comment: UTO X2 Performed By: #### L 500.4050, L506.1000, L501.9985, L100.0100 #### [facility] [address] [place], [address] eGFR Normal >60 [facility] Comment on above: Order Comment: 134 Result Comment: UTO X2 Performed By: #### L 500.4050, L506.1000, L501.9985, L100.0100 #### [facility] [address] [place], [address] GAP Normal 5-15 [facility] Comment on above: Order Comment: 134 Result Comment: UTO X2 Performed By: #### L 500.4050, L506.1000, L501.9985, L100.0100 #### [facility] [address] [place], [address] GLU Normal 70-99 [facility] Comment on above: Order Comment: 134 Result Comment: UTO X2 Performed By: #### L 500.4050, L506.1000, L501.9985, L100.0100 #### [facility] [address] [place], [address] Potassium Normal 3.3-5.1 [facility] Comment on above: Order Comment: 134 Result Comment: UTO X2 Performed By: #### L 500.4050, L506.1000, L501.9985, L100.0100 #### [facility] [address] [place], [address] T BILI Normal 0.00-1.30 [facility] Comment on above: Order Comment: 134 Result Comment: UTO X2 Performed By: #### L 500.4050, L506.1000, L501.9985, L100.0100 #### [facility] [address] [place], [address] T PROT Normal 5.9-8.4 [facility] Comment on above: Order Comment: 134 Result Comment: UTO X2 Performed By: #### L 500.4050, L506.1000, L501.9985, L100.0100 #### [facility] [address] [place], [address] Comprehensive Metabolic Profil Normal 133-145 [facility] Comment on above: Order Comment: 134 Result Comment: UTO X2 Performed By: #### L 500.4050, L506.1000, L501.9985, L100.0100 #### [facility] [address] [place], [address] [id number] DOrdered By: Jean Malhotra on 07-09-2024 Vitamin D 25-Hydroxy 44.8 ng/mL [facility] Comment on above: Vitamin D 25(OH) Sta tus Range Deficiency <20 ng/mL (50nmol/L) Insufficiency 20 - 30 ng/mL (50 - 75 nmol/L) Sufficiency 30 - 100 ng/mL (75 - 250 nmol/L) Toxicity >100 ng/mL (>250 nmol/L) Absolute lymphocyte countOrd ered By: Shayna Malhotra on 07-09-2024 Lymphocytes Auto (Unsp spec) [#/Vol] 0.82 10*3/uL Low 0.83-4.51 [facility] Absolute neutrophil countOrd ered By: Shayna Malhotra on 07-09-2024 Neutrophils (Bld) [#/Vol] 2.6 10*3/uL 2.0-7.7 [facility] Albumin to globulin ratioOrd ered By: Shayna Malhotra on 07-09-2024 Albumin/Globulin [Mass ratio] 0.6 {ratio} Low 0.9-2.4 [facility] Automated lymphocyte count a s percentage of total leukocytesOrdered By: Shayna Malhotra on 07-09-2024 Lymphocytes/100 WBC Auto (Unsp spec) 20.2 % 19-41 [facility] Basophil percentageOrdered B y: Shayna Malhotra on 07-09-2024 Basophils/100 WBC (Bld) 1.0 % 0-1 [facility] Bilirubin, totalOrdered By: Shayna Malhotra on 07-09-2024 Bilirubin [Mass/Vol] 0.70 mg/dL 0.20-1.00 [facility] Comment on above: For patients on eltr ombopag therapy, use of [facility] TBIL is not recommended. Blood urea nitrogen (BUN)/cr eatinine ratioOrdered By: Shayna Malhotra on 07-09-2024 Urea nitrogen/Creatinine [Mass ratio] 22.2 mg/mg High 10-20 [facility] CBC W/Diff, Automatedon Absolute Lymph 0.82 X10 3/uL Low 0.83-4.51 [facility] Comment on above: Order Comment: 134 Performed By: #### L 500.4050, L506.1000, L501.9985, L100.0100 #### [facility] [address] [place], [address] Absolute Neut 2.6 X10 3/uL Normal 2.0-7.7 [facility] Comment on above: Order Comment: 134 Performed By: #### L 500.4050, L506.1000, L501.9985, L100.0100 #### [facility] [address] [place], [address] Basophils/100 WBC (Bld) 1.0 % Normal 0-1 [facility] Comment on above: Order Comment: 134 Performed By: #### L 500.4050, L506.1000, L501.9985, L100.0100 #### [facility] [address] [place], [address] Eosinophils/100 WBC (Bld) 5.9 % High 0-5 [facility] Comment on above: Order Comment: 134 Performed By: #### L 500.4050, L506.1000, L501.9985, L100.0100 #### [facility] [address] [place], [address] Erythrocyte distribution width (RBC) [Ratio] 15.9 % High 11.6-14.6 [facility] Comment on above: Order Comment: 134 Performed By: #### L 500.4050, L506.1000, L501.9985, L100.0100 #### [facility] [address] [place], [address] Hematocrit (Bld) [Volume fraction] 38.2 % Normal 37-47 [facility] Comment on above: Order Comment: 134 Performed By: #### L 500.4050, L506.1000, L501.9985, L100.0100 #### [facility] [address] [place], [address] Hemoglobin (Bld) [Mass/Vol] 12.4 g/dL Normal 12.0-15.0 [facility] Comment on above: Order Comment: 134 Performed By: #### L 500.4050, L506.1000, L501.9985, L100.0100 #### [facility] [address] [place], [address] IG% 0.200 Normal 0.0-0.9 [facility] Comment on above: Order Comment: 134 Result Comment: IG% - Immature Granulocytes (promyelocytes, myelocytes and metamyelocytes) > 1% indicates that a LEFT SHIFT is Present. Performed By: #### L 500.4050, L506.1000, L501.9985, L100.0100 #### [facility] [facility] [address] [place], [address] Lymphocytes/100 WBC (Bld) 20.2 % Normal 19-41 [facility] Comment on above: Order Comment: 134 Performed By: #### L 500.4050, L506.1000, L501.9985, L100.0100 #### [facility] [address] [place], [address] MCH (RBC) [Entitic mass] 29.0 pg Normal 27.0-32.0 [facility] Comment on above: Order Comment: 134 Performed By: #### L 500.4050, L506.1000, L501.9985, L100.0100 #### [facility] [address] [place], [address] MCHC (RBC) [Mass/Vol] 32.5 g/dL Normal 32-36 [facility] Comment on above: Order Comment: 134 Performed By: #### L 500.4050, L506.1000, L501.9985, L100.0100 #### [facility] [address] [place], [address] MCV (RBC) [Entitic vol] 89.5 fL Normal 81-99 [facility] Comment on above: Order Comment: 134 Performed By: #### L 500.4050, L506.1000, L501.9985, L100.0100 #### [facility] [address] [place], [address] Monocytes/100 WBC (Bld) 9.6 % Normal 0-10 [facility] Comment on above: Order Comment: 134 Performed By: #### L 500.4050, L506.1000, L501.9985, L100.0100 #### [facility] [address] [place], [address] Neutrophils/100 WBC (Bld) 63.1 % Normal 47-70 [facility] Comment on above: Order Comment: 134 Performed By: #### L 500.4050, L506.1000, L501.9985, L100.0100 #### [facility] [address] [place], [address] Nucleated RBC (Bld) [#/Vol] 0 10*3/uL Normal 0-5 [facility] Comment on above: Order Comment: 134 Performed By: #### L 500.4050, L506.1000, L501.9985, L100.0100 #### [facility] [address] [place], [address] Platelet mean volume (Bld) [Entitic vol] 11.0 fL Normal 6.2-12.0 [facility] Comment on above: Order Comment: 134 Performed By: #### L 500.4050, L506.1000, L501.9985, L100.0100 #### [facility] [address] [place], [address] Platelets (Bld) [#/Vol] 116 10*3/uL Low 150-450 [facility] Comment on above: Order Comment: 134 Performed By: #### L 500.4050, L506.1000, L501.9985, L100.0100 #### [facility] [address] [place], [address] RBC (Bld) [#/Vol] 4.27 10*6/uL Normal 4.2-5.4 [facility] Comment on above: Order Comment: 134 Performed By: #### L 500.4050, L506.1000, L501.9985, L100.0100 #### [facility] [address] [place], [address] RDW SD 52.1 fl High 35.1-43.9 [facility] Comment on above: Order Comment: 134 Performed By: #### L 500.4050, L506.1000, L501.9985, L100.0100 #### [facility] [address] [place], [address] WBC (Bld) [#/Vol] 4.1 10*3/uL Low 4.4-11.0 [facility] Comment on above: Order Comment: 134 Performed By: #### L 500.4050, L506.1000, L501.9985, L100.0100 #### [facility] [address] [place], [address] Carbon dioxide measurementOr dered By: Shayna Malhotra on 07-09-2024 CO2 [Moles/Vol] 25.0 mmol/L 21.0-32.0 [facility] Chloride measurementOrdered By: Shayna Malhotra on 07-09-2024 Chloride [Moles/Vol] 107 mmol/L 98-107 [facility] Comprehensive Metabolic Prof ilon 07-09-2024 Albumin [Mass/Vol] 3.1 g/dL Low 3.2-5.0 [facility] Comment on above: Order Comment: 134 Performed By: #### L 500.4050, L506.1000, L501.9985, L100.0100 #### [facility] [address] [place], [address] Albumin/Globulin [Mass ratio] 0.6 {ratio} Low 0.9-2.4 [facility] Comment on above: Order Comment: 134 Performed By: #### L 500.4050, L506.1000, L501.9985, L100.0100 #### [facility] [address] [place], [address] ALK P 126 U/L High 45-117 [facility] Comment on above: Order Comment: 134 Performed By: #### L 500.4050, L506.1000, L501.9985, L100.0100 #### [facility] [address] [place], [address] ALT [Catalytic activity/Vol] 27 U/L Normal 13-56 [facility] Comment on above: Order Comment: 134 Performed By: #### L 500.4050, L506.1000, L501.9985, L100.0100 #### [facility] [address] [place], [address] AST [Catalytic activity/Vol] 35 U/L Normal 15-37 [facility] Comment on above: Order Comment: 134 Performed By: #### L 500.4050, L506.1000, L501.9985, L100.0100 #### [facility] [address] [place], [address] Bilirubin [Mass/Vol] 0.70 mg/dL Normal 0.20-1.00 [facility] Comment on above: Order Comment: 134 Result Comment: For patients on eltrombopag therapy, use of Dimension [facility] TBIL is not recommended. Performed By: #### L 500.4050, L506.1000, L501.9985, L100.0100 #### [facility] [address] [place], [address] BUN/CRE 22.2 RATIO High 10-20 [facility] Comment on above: Order Comment: 134 Performed By: #### L 500.4050, L506.1000, L501.9985, L100.0100 #### [facility] [address] [place], [address] CA,Total 9.3 mg/dL Normal 8.5-10.1 [facility] Comment on above: Order Comment: 134 Performed By: #### L 500.4050, L506.1000, L501.9985, L100.0100 #### [facility] [address] [place], [address] Chloride [Moles/Vol] 107 mmol/L Normal 98-107 [facility] Comment on above: Order Comment: 134 Performed By: #### L 500.4050, L506.1000, L501.9985, L100.0100 #### [facility] [address] [place], [address] CO2 [Moles/Vol] 25.0 mmol/L Normal 21.0-32.0 [facility] Comment on above: Order Comment: 134 Performed By: #### L 500.4050, L506.1000, L501.9985, L100.0100 #### [facility] [address] [place], [address] Creatinine [Mass/Vol] 0.76 mg/dL Normal 0.55-1.02 [facility] Comment on above: Order Comment: 134 Result Comment: The validity of the calculated GFR GFRAA in patients over 70 years has not been determined. Clinical correlation is essential. Performed By: #### L 500.4050, L506.1000, L501.9985, L100.0100 #### [facility] [address] [place], [address] EST GFR - AA 96 mL/min Normal >60 [facility] Comment on above: Order Comment: 134 Result Comment: Afri can Grenadian GFR Calc Performed By: #### L 500.4050, L506.1000, L501.9985, L100.0100 #### [facility] [address] [place], [address] GAP 5 Normal 5-15 [facility] Comment on above: Order Comment: 134 Performed By: #### L 500.4050, L506.1000, L501.9985, L100.0100 #### [facility] [address] [place], [address] GFR/1.73 sq M.predicted among non-blacks MDRD (S/P/Bld) [Vol rate/Area] 79 mL/min/{1.73_m2} Normal >60 [facility] Comment on above: Order Comment: 134 Result Comment: Non- GFR Calc Performed By: #### L 500.4050, L506.1000, L501.9985, L100.0100 #### [facility] [address] [place], [address] Globulin (S) [Mass/Vol] 4.9 g/dL High 2.2-4.2 [facility] Comment on above: Order Comment: 134 Performed By: #### L 500.4050, L506.1000, L501.9985, L100.0100 #### [facility] [address] [place], [address] Glucose [Mass/Vol] 168 mg/dL High 74-106 [facility] Comment on above: Order Comment: 134 Result Comment: Fast ing Glucose result greater than or equal to 126 mg/dL suggests DIABETES MELLITUS per A.D.A. criteria. Performed By: #### L 500.4050, L506.1000, L501.9985, L100.0100 #### [facility] [address] [place], [address] Potassium [Moles/Vol] 4.2 mmol/L Normal 3.5-5.1 [facility] Comment on above: Order Comment: 134 Performed By: #### L 500.4050, L506.1000, L501.9985, L100.0100 #### [facility] [address] [place], [address] Sodium [Moles/Vol] 137 mmol/L Normal 136-145 [facility] Comment on above: Order Comment: 134 Performed By: #### L 500.4050, L506.1000, L501.9985, L100.0100 #### [facility] [address] [place], [address] T PROT 8.0 g/dL Normal 6.4-8.2 [facility] Comment on above: Order Comment: 134 Performed By: #### L 500.4050, L506.1000, L501.9985, L100.0100 #### [facility] [address] [place], [address] Urea nitrogen [Mass/Vol] 17 mg/dL Normal 7-18 [facility] Comment on above: Order Comment: 134 Performed By: #### L 500.4050, L506.1000, L501.9985, L100.0100 #### [facility] [address] [place], [address] Eosinophil percentageOrdered By: Shayna Malhotra on 07-09-2024 Eosinophils/100 WBC (Bld) 5.9 % High 0-5 [facility] Erythrocyte distribution wid th (RBC) [Ratio]Ordered By: Shayna Malhotra on 07-09-2024 Erythrocyte distribution width (RBC) [Entitic vol] 52.1 fL High 35.1-43.9 [facility] Erythrocyte distribution wid th ratioOrdered By: Shayna Malhotra on 07-09-2024 Erythrocyte distribution width (RBC) [Ratio] 15.9 % High 11.6-14.6 [facility] Erythrocyte distribution wid th standard deviationOrdered By: Shayna Malhotra on 07-09-2024 Erythrocyte distribution width (RBC) [Ratio] 52.1 fl High 35.1-43.9 [facility] Estimated glomerular filtrat ion rate (GFR) AmericanOrdered By: Shayna Malhotra on 07-09-2024 Estimated GFR (MDRD) Amer 96 mL/min >60 [facility] Comment on above: GFR Calc Glomerular filtration rate ( GFR) estimationOrdered By: Shayna Malhotra on 07-09-2024 Estimated GFR (MDRD) Non-Af Amer 79 mL/min >60 [facility] Comment on above: Non- GFR Calc GFR/1.73 sq M.predicted among non-blacks MDRD (S/P/Bld) [Vol rate/Area] 79 mL/min/{1.73_m2} >60 [facility] Comment on above: Non- GFR Calc Glucose measurementOrdered B y: Shayna Malhotra on 07-09-2024 Glucose [Mass/Vol] 168 mg/dL High 74-106 [facility] Comment on above: Fasting Glucose resu lt greater than or equal to 126 mg/dL suggests DIABETES MELLITUS per A.D.A. criteria. Hematocrit Auto (Bld) [Volum e fraction]Ordered By: Shayna Malhotra on 07-09-2024 Hematocrit (Bld) [Volume fraction] 38.2 % 37-47 [facility] Hemoglobin A1con 07-09-2024 HbA1c (Bld) [Mass fraction] 6.6 % High 3.8-5.6 [facility] Comment on above: Order Comment: 134 Result Comment: Norm al < 5.7 % Prediabetic 5.7 - 6.4 % Diabetic >or= 6.5 % Please note range changes. Performed By: #### L 500.4050, L506.1000, L501.9985, L100.0100 #### [facility] [address] [place], [address] Hemoglobin A1c percentageOrd ered By: Shayna Malhotra on 07-09-2024 HbA1c (Bld) [Mass fraction] 6.6 % High 3.8-5.6 [facility] Comment on above: Normal < 5.7 % Predi abetic 5.7 - 6.4 % Diabetic >or= 6.5 % Please note range changes. Hemoglobin measurementOrdere d By: Shayna Malhotra on 07-09-2024 Hemoglobin (Bld) [Mass/Vol] 12.4 g/dL 12.0-15.0 [facility] Immature granulocytes/100 WB C Auto (Bld)Ordered By: Shayna Malhotra on 07-09-2024 Immature granulocytes/100 WBC (Bld) 0.200 % 0.0-0.9 [facility] Comment on above: IG% - Immature Granu locytes (promyelocytes, myelocytes and metamyelocytes) > 1% indicates that a LEFT SHIFT is Present. Laboratory - Chemistry and C hemistry - challengeOrdered By: Shayna Malhotra on 07-09-2024 AST [Catalytic activity/Vol] 35 U/L 15-37 [facility] Lymphocytes Auto (Unsp spec) [#/Vol]Ordered By: Shayna Malhotra on 07-09-2024 Lymphocytes (Bld) [#/Vol] 0.82 10*3/uL Low 0.83-4.51 [facility] Lymphocytes/100 WBC Auto (Un sp spec)Ordered By: Shayna Malhotra on 07-09-2024 Lymphocytes/100 WBC (Bld) 20.2 % 19-41 [facility] MCV (mean corpuscular volume ) determinationOrdered By: Shayna Malhotra on 07-09-2024 MCV (RBC) [Entitic vol] 89.5 fL 81-99 [facility] Mean corpuscular hemoglobin (MCH) determinationOrdered By: Shayna Malhotra on 07-09-2024 MCH (RBC) [Entitic mass] 29.0 pg 27.0-32.0 [facility] Mean corpuscular hemoglobin concentration (MCHC) determinationOrdered By: Shayna Malhotra on 07-09-2024 MCHC (RBC) [Mass/Vol] 32.5 g/dL 32-36 [facility] Mean platelet volume determi nationOrdered By: Shayna Malhotra on 07-09-2024 Platelet mean volume (Bld) [Entitic vol] 11.0 fL 6.2-12.0 [facility] Monocyte percentageOrdered B y: Shayna Malhotra on 07-09-2024 Monocytes/100 WBC (Bld) 9.6 % 0-10 [facility] Neutrophil percentageOrdered By: Shayna Malhotra on 07-09-2024 Neutrophils/100 WBC (Bld) 63.1 % 47-70 [facility] Nucleated red blood cell per centageOrdered By: Shayna Malhotra on 07-09-2024 Nucleated RBC/100 WBC (Bld) [Ratio] 0 % 0-5 [facility] Platelet countOrdered By: Maryanne Malhotra on 07-09-2024 Platelets (Bld) [#/Vol] 116 10*3/uL Low 150-450 [facility] Potassium measurementOrdered By: Shayna Malhotra on 07-09-2024 Potassium [Moles/Vol] 4.2 mmol/L 3.5-5.1 [facility] RBC Auto (Bld) [#/Vol]Ordere d By: Shayna Malhotra on 07-09-2024 RBC (Bld) [#/Vol] 4.27 10*6/uL 4.2-5.4 [facility] Serum anion gap measurementO rdered By: Shayna Malhotra on 07-09-2024 Anion gap [Moles/Vol] 5 mmol/L 5-15 [facility] Serum globulin measurementOr dered By: Shayna Malhotra on 07-09-2024 Globulin (S) [Mass/Vol] 4.9 g/dL High 2.2-4.2 [facility] Serum or plasma alanine burnette otransferase (ALT) measurementOrdered By: Shayna Malhotra on 07-09-2024 ALT [Catalytic activity/Vol] 27 U/L 13-56 [facility] Serum or plasma albumin kim urement (mass/volume)Ordered By: Shayna Malhotra on 07-09-2024 Albumin [Mass/Vol] 3.1 g/dL Low 3.2-5.0 [facility] Serum or plasma alkaline regina sphatase measurementOrdered By: Shayna Malhotra on 07-09-2024 ALP [Catalytic activity/Vol] 126 U/L High 45-117 [facility] Serum or plasma calcium kim urement (mass/volume)Ordered By: Shayna Malhotra on 07-09-2024 Calcium [Mass/Vol] 9.3 mg/dL 8.5-10.1 [facility] Serum or plasma creatinine m easurement (mass/volume)Ordered By: Shayna Malhotra on 07-09-2024 Creatinine [Mass/Vol] 0.76 mg/dL 0.55-1.02 [facility] Comment on above: The validity of the calculated GFR & GFRAA in patients over 70 years has not been determined. Clinical correlation is essential. Serum or plasma urea nitroge n measurement (mass/volume)Ordered By: Shayna Malhotra on 07-09-2024 Urea nitrogen [Mass/Vol] 17 mg/dL 7-18 [facility] Sodium levelOrdered By: Paty Malhotra on 07-09-2024 Sodium [Moles/Vol] 137 mmol/L 136-145 [facility] Total proteinOrdered By: Evi Malhotra on 07-09-2024 Protein [Mass/Vol] 8.0 g/dL 6.4-8.2 [facility] Vitamin D,25 Hydroxyon 07-09 Vitamin D 25-OH 44.8 ng/mL Normal [facility] Comment on above: Order Comment: 134 Result Comment: Maricarmen min D 25(OH) Status Range Deficiency <20 ng/mL (50nmol/L) Insufficiency 20 - 30 ng/mL (50 - 75 nmol/L) Sufficiency 30 - 100 ng/mL (75 - 250 nmol/L) Toxicity >100 ng/mL (>250 nmol/L) Performed By: #### L 500.4050, L506.1000, L501.9985, L100.0100 #### [facility] [address] [place], [address] White blood cell (WBC) count Ordered By: Shayna Malhotra on 07-09-2024 WBC (Bld) [#/Vol] 4.1 10*3/uL Low 4.4-11.0 [facility] MR/BMS.Bon 07-04-2024 MR/BMS.[facility] [address] [place] [address] OFFICE VISIT Date of Service: 07/04/24 MR#: [id number] Acct: [id number] Name: VIDA NINA Rep #: [id number] : 1950 Provider: Dr. Shayna gomes MD Age/Sex: 73/F Location: [facility] Status: Signed Intake Vital Signs 05/28/24 15:23 [...] Ankle Pain Chief Complaint: L ankle pain Claims Sorter Required: No Accompanied by: Self Is patient [...] TID #0 grams 11/24/21 07/04/24 Rx powder ([facility]) quetiapine 100 mg tablet 300 mg [...] a c (more content not included)... Normal [facility] MR/BMS.Mily 05-28-2024 MR/BMS.[facility] [address] [address] [place] [address] OFFICE VISIT Date of Service: 05/28/24 MR#: [id number] Acct: [id number] Name: VIDA NINA Rep #: [id number] : 1950 Provider: Dr. Shayna gomes MD Age/Sex: 73/F Location: [facility] Status: Signed Intake Vital Signs 01/09/23 17:15 [...] Intake Visit Reasons: Annual/Physical Chief Complaint: annual/physical Claims Sorter Required: No Accompanied by: Self Is patient [...] [facility] History Lite Strips[facility] 05/28/24 History Lite Meter kit) lancets 28 gauge ([facility] 11/23/21 05/28/24 History Lancets) nystatin 100,000 unit/gram topical 1 applic topical TID #0 grams 11/24/21 05/28/24 Rx powder ([facility]) quetiapine 100 mg tablet 300 mg [...] you fallen in the past year?: No PFS Medical History (Updated 05/28/24 @ 17:12 by [...] here in the office. She lives at [facility]. She checked herself in there a few years ago as she felt it was in (more content not included)... Normal [facility] Absolute lymphocyte countOrd ered By: Shayna Malhotra on 07-08-2023 Lymphocytes Auto (Unsp spec) [#/Vol] 0.97 10*3/uL 0.83-4.51 [facility] Automated lymphocyte count a s percentage of total leukocytesOrdered By: Shayna Malhotra on 07-08-2023 Lymphocytes/100 WBC Auto (Unsp spec) 21.6 % 19-41 [facility] Basophil percentageOrdered B y: Shayna Malhotra on 07-08-2023 Basophils/100 WBC (Bld) 0.7 % 0-1 [facility] Bilirubin [Mass/Vol] 0.60 mg/dL 0.20-1.00 [facility] Comment on above: For patients on eltr ombopag therapy, use of [facility] TBIL is not recommended. Chloride [Moles/Vol] 109 mmol/L 98-107 [facility] Eosinophils/100 WBC (Bld) 2.4 % 0-5 [facility] Glucose [Mass/Vol] 204 mg/dL 74-106 [facility] Comment on above: Glucose result great er than or equal to 200 mg/dLsuggests DIABETES MELLITUS per A.D.A. criteria. Hemoglobin (Bld) [Mass/Vol] 12.6 g/dL 12.0-15.0 [facility] Monocytes/100 WBC (Bld) 8.7 % 0-10 [facility] Neutrophils (Bld) [#/Vol] 3.0 10*3/uL 2.0-7.7 [facility] Neutrophils/100 WBC (Bld) 66.4 % 47-70 [facility] Potassium [Moles/Vol] 4.4 mmol/L 3.5-5.1 [facility] Protein [Mass/Vol] 8.0 g/dL 6.4-8.2 [facility] Sodium [Moles/Vol] 137 mmol/L 136-145 [facility] WBC (Bld) [#/Vol] 4.5 10*3/uL 4.4-11.0 [facility] Determination of erythrocyte mean corpuscular volume (MCV)Ordered By: Shayna Malhotra on 07-08-2023 MCV (RBC) [Entitic vol] 90.3 fL 81-99 [facility] Erythrocyte distribution wid th ratioOrdered By: Shayna Malhotra on 07-08-2023 Erythrocyte distribution width (RBC) [Ratio] 15.5 % 11.6-14.6 [facility] Erythrocyte distribution wid th standard deviationOrdered By: Shayna Malhotra on 07-08-2023 Erythrocyte distribution width (RBC) [Entitic vol] 51.9 fL 35.1-43.9 [facility] Hematocrit Auto (Bld) [Volum e fraction]Ordered By: Shayna Malhotra on 07-08-2023 Hematocrit (Bld) [Volume fraction] 39.9 % 37-47 [facility] Immature granulocytes/100 WB C Auto (Bld)Ordered By: Shayna Malhotra on 07-08-2023 Immature granulocytes/100 WBC (Bld) 0.200 % 0.0-0.9 [facility] Comment on above: IG% - Immature Granu locytes (promyelocytes, myelocytes and metamyelocytes) > 1% indicates that a LEFT SHIFT is Present. Laboratory - Chemistry and C hemistry - challengeOrdered By: Shayna Malhotra on 07-08-2023 Albumin/Globulin [Mass ratio] 0.7 {ratio} 0.9-2.4 [facility] ALP [Catalytic activity/Vol] 126 U/L 45-117 [facility] ALT [Catalytic activity/Vol] 34 U/L 13-56 [facility] CO2 [Moles/Vol] 24.0 mmol/L 21.0-32.0 [facility] Globulin (S) [Mass/Vol] 4.7 g/dL 2.2-4.2 [facility] Urea nitrogen/Creatinine [Mass ratio] 17.2 mg/mg 10-20 [facility] Laboratory - Hematology and Cell countsOrdered By: Shayna Malhotra on 07-08-2023 MCH (RBC) [Entitic mass] 28.5 pg 27.0-32.0 [facility] MCHC (RBC) [Mass/Vol] 31.6 g/dL 32-36 [facility] Nucleated RBC/100 WBC (Bld) [Ratio] 0 % 0-5 [facility] Platelets (Bld) [#/Vol] 130 10*3/uL 150-450 [facility] No Panel InformationOrdered By: Shayna Malhotra on 07-08-2023 Estimated GFR (MDRD) Amer 83 mL/min >60 [facility] Comment on above: GFR Calc Estimated GFR (MDRD) Non-Af Amer 68 mL/min >60 [facility] Comment on above: Non- GFR Calc Vitamin D 25-Hydroxy 36.2 ng/mL [facility] Comment on above: Vitamin D 25(OH) Sta tus Range Deficiency <20 ng/mL (50nmol/L) Insufficiency 20 - 30 ng/mL (50 - 75 nmol/L) Sufficiency 30 - 100 ng/mL (75 - 250 nmol/L) Toxicity >100 ng/mL (>250 nmol/L) Platelet mean volume Robert-Ec ker (Bld) [Entitic vol]Ordered By: Shayna Malhotra on 07-08-2023 Platelet mean volume (Bld) [Entitic vol] 11.5 fL 6.2-12.0 [facility] RBC Auto (Bld) [#/Vol]Ordere d By: Shayna Malhotra on 07-08-2023 RBC (Bld) [#/Vol] 4.42 10*6/uL 4.2-5.4 [facility] Serum or plasma calcium kim urement (mass/volume)Ordered By: Shayna Malhotra on 07-08-2023 Calcium [Mass/Vol] 9.3 mg/dL 8.5-10.1 [facility] Serum or plasma creatinine m easurement (mass/volume)Ordered By: Shayna Malhotra on 07-08-2023 Creatinine [Mass/Vol] 0.87 mg/dL 0.55-1.02 [facility] Comment on above: The validity of the calculated GFR & GFRAA in patients over 70 years has not been determined. Clinical correlation is essential. Serum or plasma urea nitroge n measurement (mass/volume)Ordered By: Shayna Malhotra on 07-08-2023 Urea nitrogen [Mass/Vol] 15 mg/dL 7-18 [facility] Thin prep Papanicolaou smear with manual screeningOrdered By: Shayna Malhotra on 07-08-2023 Thin prep Papanicolaou smear with manual screening 3.3 g/dL 3.2-5.0 [facility] Thin prep Papanicolaou smear with manual screening 38 U/L 15-37 [facility] Thin prep Papanicolaou smear with manual screening 4 5-15 [facility] Whole blood hemoglobin A1c/t otal hemoglobin ratio (mass fraction)Ordered By: Shayna Malhotra on 07-08-2023 HbA1c (Bld) [Mass fraction] 7.5 % 3.8-5.6 [facility] Comment on above: Normal < 5.7 % Predi abetic 5.7 - 6.4 % Diabetic >or= 6.5 % Please note range changes. Absolute lymphocyte countOrd ered By: [facility] on 04-08-2023 Lymphocytes Auto (Unsp spec) [#/Vol] 1.16 10*3/uL 0.83-4.51 [facility] Basophil percentageOrdered B y: [facility] on 04-08-2023 Basophils/100 WBC (Bld) 0.6 % 0-1 [facility] Bilirubin [Mass/Vol] 0.60 mg/dL 0.20-1.00 [facility] Comment on above: For patients on eltr ombopag therapy, use of [facility] TBIL is not recommended. Chloride [Moles/Vol] 106 mmol/L 98-107 [facility] Eosinophils/100 WBC (Bld) 2.6 % 0-5 [facility] Glucose [Mass/Vol] 200 mg/dL 74-106 [facility] Comment on above: Glucose result great er than or equal to 200 mg/dLsuggests DIABETES MELLITUS per A.D.A. criteria. Neutrophils (Bld) [#/Vol] 3.3 10*3/uL 2.0-7.7 [facility] Neutrophils/100 WBC (Bld) 65.4 % 47-70 [facility] Potassium [Moles/Vol] 4.2 mmol/L 3.5-5.1 [facility] Protein [Mass/Vol] 8.1 g/dL 6.4-8.2 [facility] Sodium [Moles/Vol] 136 mmol/L 136-145 [facility] WBC (Bld) [#/Vol] 5.0 10*3/uL 4.4-11.0 [facility] Blood erythrocytes count (nu mber/volume)Ordered By: [facility] on 04-08-2023 RBC (Bld) [#/Vol] 4.50 10*6/uL 4.2-5.4 [facility] Blood hemoglobin measurement (mass/volume)Ordered By: [facility] on 04-08-2023 Hemoglobin (Bld) [Mass/Vol] 12.9 g/dL 12.0-15.0 [facility] Blood lymphocytes/100 leukoc ytesOrdered By: [facility] on 04-08-2023 Lymphocytes/100 WBC (Bld) 23.2 % 19-41 [facility] Blood monocytes/100 leukocyt esOrdered By: [facility] on 04-08-2023 Monocytes/100 WBC (Bld) 7.8 % 0-10 [facility] Blood platelet mean volumeOr dered By: [facility] on 04-08-2023 Platelet mean volume (Bld) [Entitic vol] 11.9 fL 6.2-12.0 [facility] Determination of erythrocyte mean corpuscular volume (MCV)Ordered By: [facility] on 04-08-2023 MCV (RBC) [Entitic vol] 89.6 fL 81-99 [facility] Hematocrit Auto (Bld) [Volum e fraction]Ordered By: [facility] on 04-08-2023 Hematocrit (Bld) [Volume fraction] 40.3 % 37-47 [facility] Laboratory - Chemistry and C hemistry - challengeOrdered By: [facility] on 04-08-2023 ALP [Catalytic activity/Vol] 126 U/L 45-117 [facility] ALT [Catalytic activity/Vol] 35 U/L 13-56 [facility] CO2 [Moles/Vol] 24.0 mmol/L 21.0-32.0 [facility] Globulin (S) [Mass/Vol] 4.9 g/dL 2.2-4.2 [facility] Urea nitrogen/Creatinine [Mass ratio] 17.1 mg/mg 10-20 [facility] Laboratory - Hematology and Cell countsOrdered By: [facility] on 04-08-2023 Erythrocyte distribution width (RBC) [Entitic vol] 51.4 fL 35.1-43.9 [facility] Erythrocyte distribution width (RBC) [Ratio] 15.6 % 11.6-14.6 [facility] Immature granulocytes/100 WBC (Bld) 0.400 % 0.0-0.9 [facility] Comment on above: IG% - Immature Granu locytes (promyelocytes, myelocytes and metamyelocytes) > 1% indicates that a LEFT SHIFT is Present. MCH (RBC) [Entitic mass] 28.7 pg 27.0-32.0 [facility] Nucleated RBC/100 WBC (Bld) [Ratio] 0 % 0-5 [facility] MCHC Auto (RBC) [Mass/Vol]Or dered By: [facility] on 04-08-2023 MCHC (RBC) [Mass/Vol] 32.0 g/dL 32-36 [facility] No Panel InformationOrdered By: [facility] on 04-08-2023 Estimated GFR (MDRD) Amer 82 mL/min >60 [facility] Comment on above: GFR Calc Estimated GFR (MDRD) Non-Af Amer 68 mL/min >60 [facility] Comment on above: Non- GFR Calc Vitamin D 25-Hydroxy 43.2 ng/mL [facility] Comment on above: Vitamin D 25(OH) Sta tus Range Deficiency <20 ng/mL (50nmol/L) Insufficiency 20 - 30 ng/mL (50 - 75 nmol/L) Sufficiency 30 - 100 ng/mL (75 - 250 nmol/L) Toxicity >100 ng/mL (>250 nmol/L) Platelets bldOrdered By: [facility] 04-08-[facility] Platelets (Bld) [#/Vol] 119 10*3/uL 150-450 [facility] Serum or plasma albumin kim urement (mass/volume)Ordered By: [facility] on 04-08-2023 Albumin [Mass/Vol] 3.2 g/dL 3.2-5.0 [facility] Serum or plasma albumin/glob ulin mass ratioOrdered By: [facility] on 04-08-2023 Albumin/Globulin [Mass ratio] 0.7 {ratio} 0.9-2.4 [facility] Serum or plasma calcium kim urement (mass/volume)Ordered By: [facility] on 04-08-2023 Calcium [Mass/Vol] 9.1 mg/dL 8.5-10.1 [facility] Serum or plasma creatinine m easurement (mass/volume)Ordered By: [facility] on 04-08-2023 Creatinine [Mass/Vol] 0.88 mg/dL 0.55-1.02 [facility] Comment on above: The validity of the calculated GFR & GFRAA in patients over 70 years has not been determined. Clinical correlation is essential. Serum or plasma urea nitroge n measurement (mass/volume)Ordered By: [facility] on 04-08-2023 Urea nitrogen [Mass/Vol] 15 mg/dL 7-18 [facility] Thin prep Papanicolaou smear with manual screeningOrdered By: [facility] on 04-08-2023 Thin prep Papanicolaou smear with manual screening 36 U/L 15-37 [facility] Thin prep Papanicolaou smear with manual screening 6 5-15 [facility] Whole blood hemoglobin A1c/t otal hemoglobin ratio (mass fraction)Ordered By: [facility] on 04-08-2023 HbA1c (Bld) [Mass fraction] 7.5 % 3.8-5.6 [facility] Comment on above: Normal < 5.7 % Predi abetic 5.7 - 6.4 % Diabetic >or= 6.5 % Please note range changes. Absolute lymphocyte countOrd ered By: Shayna Malhotra on 10-13-2022 Lymphocytes Auto (Unsp spec) [#/Vol] 1.32 10*3/uL 0.83-4.51 [facility] Basophil percentageOrdered B y: Shayna Malhotra on 10-13-2022 Basophils/100 WBC (Bld) 0.6 % 0-1 [facility] Bilirubin [Mass/Vol] 0.40 mg/dL 0.20-1.00 [facility] Comment on above: For patients on eltr ombopag therapy, use of [facility] TBIL is not recommended. Chloride [Moles/Vol] 106 mmol/L 98-107 [facility] Eosinophils/100 WBC (Bld) 3.5 % 0-5 [facility] Glucose [Mass/Vol] 232 mg/dL 74-106 [facility] Comment on above: Glucose result great er than or equal to 200 mg/dLsuggests DIABETES MELLITUS per A.D.A. criteria. Neutrophils (Bld) [#/Vol] 3.2 10*3/uL 2.0-7.7 [facility] Neutrophils/100 WBC (Bld) 60.7 % 47-70 [facility] Potassium [Moles/Vol] 4.7 mmol/L 3.5-5.1 [facility] Protein [Mass/Vol] 8.1 g/dL 6.4-8.2 [facility] Sodium [Moles/Vol] 137 mmol/L 136-145 [facility] WBC (Bld) [#/Vol] 5.2 10*3/uL 4.4-11.0 [facility] Blood erythrocytes count (nu mber/volume)Ordered By: Shayna Malhotra on 10-13-2022 RBC (Bld) [#/Vol] 4.62 10*6/uL 4.2-5.4 [facility] Blood hemoglobin measurement (mass/volume)Ordered By: Shayna Malhotra on 10-13-2022 Hemoglobin (Bld) [Mass/Vol] 13.1 g/dL 12.0-15.0 [facility] Blood lymphocytes/100 leukoc ytesOrdered By: Shayna Malhotra on 10-13-2022 Lymphocytes/100 WBC (Bld) 25.4 % 19-41 [facility] Blood monocytes/100 leukocyt esOrdered By: Shayna Malhotra on 10-13-2022 Monocytes/100 WBC (Bld) 9.6 % 0-10 [facility] Blood platelet mean volumeOr dered By: Shayna Malhotra on 10-13-2022 Platelet mean volume (Bld) [Entitic vol] 11.1 fL 6.2-12.0 [facility] Determination of erythrocyte mean corpuscular volume (MCV)Ordered By: Shayna Malhotra on 10-13-2022 MCV (RBC) [Entitic vol] 90.3 fL 81-99 [facility] Hematocrit Auto (Bld) [Volum e fraction]Ordered By: Shayna Malhotra on 10-13-2022 Hematocrit (Bld) [Volume fraction] 41.7 % 37-47 [facility] Laboratory - Chemistry and C hemistry - challengeOrdered By: Shayna Malhotra on 10-13-2022 ALP [Catalytic activity/Vol] 153 U/L 45-117 [facility] ALT [Catalytic activity/Vol] 45 U/L 13-56 [facility] CO2 [Moles/Vol] 25.0 mmol/L 21.0-32.0 [facility] Globulin (S) [Mass/Vol] 4.9 g/dL 2.2-4.2 [facility] Urea nitrogen/Creatinine [Mass ratio] 15.7 mg/mg 10-20 [facility] Laboratory - Hematology and Cell countsOrdered By: Shayna Malhotra on 10-13-2022 Erythrocyte distribution width (RBC) [Entitic vol] 50.5 fL 35.1-43.9 [facility] Erythrocyte distribution width (RBC) [Ratio] 15.1 % 11.6-14.6 [facility] Immature granulocytes/100 WBC (Bld) 0.200 % 0.0-0.9 [facility] Comment on above: IG% - Immature Granu locytes (promyelocytes, myelocytes and metamyelocytes) > 1% indicates that a LEFT SHIFT is Present. MCH (RBC) [Entitic mass] 28.4 pg 27.0-32.0 [facility] Nucleated RBC/100 WBC (Bld) [Ratio] 0 % 0-5 [facility] MCHC Auto (RBC) [Mass/Vol]Or dered By: Shayna Malhotra on 10-13-2022 MCHC (RBC) [Mass/Vol] 31.4 g/dL 32-36 [facility] No Panel InformationOrdered By: Shayna Malhotra on 10-13-2022 Estimated GFR (MDRD) Amer 80 mL/min >60 [facility] Comment on above: GFR Calc Estimated GFR (MDRD) Non-Af Amer 66 mL/min >60 [facility] Comment on above: Non- GFR Calc Vitamin D 25-Hydroxy 57.3 ng/mL [facility] Comment on above: Vitamin D 25(OH) Sta tus Range Deficiency <20 ng/mL (50nmol/L) Insufficiency 20 - 30 ng/mL (50 - 75 nmol/L) Sufficiency 30 - 100 ng/mL (75 - 250 nmol/L) Toxicity >100 ng/mL (>250 nmol/L) Platelets bldOrdered By: Evi Malhotra on 10-13-2022 Platelets (Bld) [#/Vol] 139 10*3/uL 150-450 [facility] Serum or plasma albumin kim urement (mass/volume)Ordered By: Shayna Malhotra on 10-13-2022 Albumin [Mass/Vol] 3.2 g/dL 3.2-5.0 [facility] Serum or plasma albumin/glob ulin mass ratioOrdered By: Shayna Malhotra on 10-13-2022 Albumin/Globulin [Mass ratio] 0.7 {ratio} 0.9-2.4 [facility] Serum or plasma calcium kim urement (mass/volume)Ordered By: Shayna Malhotra on 10-13-2022 Calcium [Mass/Vol] 9.5 mg/dL 8.5-10.1 [facility] Serum or plasma creatinine m easurement (mass/volume)Ordered By: Shayna Malhotra on 10-13-2022 Creatinine [Mass/Vol] 0.89 mg/dL 0.55-1.02 [facility] Comment on above: The validity of the calculated GFR & GFRAA in patients over 70 years has not been determined. Clinical correlation is essential. Serum or plasma urea nitroge n measurement (mass/volume)Ordered By: Shayna Malhotra on 10-13-2022 Urea nitrogen [Mass/Vol] 14 mg/dL 7-18 [facility] Thin prep Papanicolaou smear with manual screeningOrdered By: Shayna Malhotra on 10-13-2022 Thin prep Papanicolaou smear with manual screening 49 U/L 15-37 [facility] Thin prep Papanicolaou smear with manual screening 6 5-15 [facility] No Panel InformationOrdered By: Shayna Malhotra on 08-12-2022 C-Peptide 2.9 ng/mL 1.1-4.4 [facility] Comment on above: C-Peptide reference interval is for fasting patients.Performed at: [facility] [id number] Director: Suhas Deal PhD, Phone: [phone] Absolute lymphocyte countOrd ered By: Shayna Malhotra on 07-13-2022 Lymphocytes Auto (Unsp spec) [#/Vol] 1.18 10*3/uL 0.83-4.51 [facility] Basophil percentageOrdered B y: Shayna Malhotra on 07-13-2022 Basophils/100 WBC (Bld) 0.7 % 0-1 [facility] Bilirubin [Mass/Vol] 0.90 mg/dL 0.20-1.00 [facility] Comment on above: For patients on eltr ombopag therapy, use of [facility] TBIL is not recommended. Chloride [Moles/Vol] 104 mmol/L 98-107 [facility] Eosinophils/100 WBC (Bld) 3.3 % 0-5 [facility] Glucose [Mass/Vol] 314 mg/dL 74-106 [facility] Comment on above: Glucose result great er than or equal to 200 mg/dLsuggests DIABETES MELLITUS per A.D.A. criteria. Neutrophils (Bld) [#/Vol] 3.5 10*3/uL 2.0-7.7 [facility] Neutrophils/100 WBC (Bld) 64.8 % 47-70 [facility] Potassium [Moles/Vol] 5.1 mmol/L 3.5-5.1 [facility] Comment on above: Slight Hemolysis, Re sult may be falsely increased. Protein [Mass/Vol] 8.2 g/dL 6.4-8.2 [facility] Sodium [Moles/Vol] 135 mmol/L 136-145 [facility] WBC (Bld) [#/Vol] 5.4 10*3/uL 4.4-11.0 [facility] Blood erythrocytes count (nu mber/volume)Ordered By: Shayna Malhotra on 07-13-2022 RBC (Bld) [#/Vol] 4.51 10*6/uL 4.2-5.4 [facility] Blood hemoglobin measurement (mass/volume)Ordered By: Shayna Malhotra on 07-13-2022 Hemoglobin (Bld) [Mass/Vol] 12.8 g/dL 12.0-15.0 [facility] Blood lymphocytes/100 leukoc ytesOrdered By: Shayna Malhotra on 07-13-2022 Lymphocytes/100 WBC (Bld) 21.9 % 19-41 [facility] Blood monocytes/100 leukocyt esOrdered By: Shayna Malhotra on 07-13-2022 Monocytes/100 WBC (Bld) 9.1 % 0-10 [facility] Blood platelet mean volumeOr dered By: Shayna Malhotra on 07-13-2022 Platelet mean volume (Bld) [Entitic vol] 11.2 fL 6.2-12.0 [facility] Determination of erythrocyte mean corpuscular volume (MCV)Ordered By: Shayna Malhotra on 07-13-2022 MCV (RBC) [Entitic vol] 87.1 fL 81-99 [facility] Hematocrit Auto (Bld) [Volum e fraction]Ordered By: Shayna Malhotra on 07-13-2022 Hematocrit (Bld) [Volume fraction] 39.3 % 37-47 [facility] Laboratory - Chemistry and C hemistry - challengeOrdered By: Shayna Malhotra on 07-13-2022 ALP [Catalytic activity/Vol] 159 U/L 45-117 [facility] ALT [Catalytic activity/Vol] 35 U/L 13-56 [facility] CO2 [Moles/Vol] 23.0 mmol/L 21.0-32.0 [facility] Globulin (S) [Mass/Vol] 4.9 g/dL 2.2-4.2 [facility] Urea nitrogen/Creatinine [Mass ratio] 16.6 mg/mg 10-20 [facility] Laboratory - Hematology and Cell countsOrdered By: Shayna Malhotra on 07-13-2022 Erythrocyte distribution width (RBC) [Entitic vol] 49.6 fL 35.1-43.9 [facility] Erythrocyte distribution width (RBC) [Ratio] 15.7 % 11.6-14.6 [facility] Immature granulocytes/100 WBC (Bld) 0.200 % 0.0-0.9 [facility] Comment on above: IG% - Immature Granu locytes (promyelocytes, myelocytes and metamyelocytes) > 1% indicates that a LEFT SHIFT is Present. MCH (RBC) [Entitic mass] 28.4 pg 27.0-32.0 [facility] Nucleated RBC/100 WBC (Bld) [Ratio] 0 % 0-5 [facility] MCHC Auto (RBC) [Mass/Vol]Or dered By: Shayna Malhotra on 07-13-2022 MCHC (RBC) [Mass/Vol] 32.6 g/dL 32-36 [facility] No Panel InformationOrdered By: Shayna Malhotra on 07-13-2022 Estimated GFR (MDRD) Amer 74 mL/min >60 [facility] Comment on above: GFR Calc Estimated GFR (MDRD) Non-Af Amer 61 mL/min >60 [facility] Comment on above: Non- GFR Calc Vitamin D 25-Hydroxy 47.5 ng/mL [facility] Comment on above: Vitamin D 25(OH) Sta tus Range Deficiency <20 ng/mL (50nmol/L) Insufficiency 20 - 30 ng/mL (50 - 75 nmol/L) Sufficiency 30 - 100 ng/mL (75 - 250 nmol/L) Toxicity >100 ng/mL (>250 nmol/L) Platelets bldOrdered By: Evi Malhotra on 07-13-2022 Platelets (Bld) [#/Vol] 132 10*3/uL 150-450 [facility] Serum or plasma albumin kim urement (mass/volume)Ordered By: Shayna Malhotra on 07-13-2022 Albumin [Mass/Vol] 3.3 g/dL 3.2-5.0 [facility] Serum or plasma albumin/glob ulin mass ratioOrdered By: Shayna Malhotra on 07-13-2022 Albumin/Globulin [Mass ratio] 0.7 {ratio} 0.9-2.4 [facility] Serum or plasma calcium kim urement (mass/volume)Ordered By: Shayna Malhotra on 07-13-2022 Calcium [Mass/Vol] 9.6 mg/dL 8.5-10.1 [facility] Serum or plasma creatinine m easurement (mass/volume)Ordered By: Shayna Malhotra on 07-13-2022 Creatinine [Mass/Vol] 0.97 mg/dL 0.55-1.02 [facility] Comment on above: The validity of the calculated GFR & GFRAA in patients over 70 years has not been determined. Clinical correlation is essential. Serum or plasma urea nitroge n measurement (mass/volume)Ordered By: Shayna Malhotra on 07-13-2022 Urea nitrogen [Mass/Vol] 16 mg/dL 7-18 [facility] Thin prep Papanicolaou smear with manual screeningOrdered By: Shayna Malhotra on 07-13-2022 Thin prep Papanicolaou smear with manual screening 48 U/L 15-37 [facility] Comment on above: Slight Hemolysis, Re sult may be falsely increased. Thin prep Papanicolaou smear with manual screening 8 5-15 [facility] Absolute lymphocyte countOrd ered By: [facility] on 06-08-2022 Lymphocytes Auto (Unsp spec) [#/Vol] 1.23 10*3/uL 0.83-4.51 [facility] Basophil percentageOrdered B y: [facility] on 06-08-2022 Basophils/100 WBC (Bld) 0.6 % 0-1 [facility] Bilirubin [Mass/Vol] 0.50 mg/dL 0.20-1.00 [facility] Comment on above: For patients on eltr ombopag therapy, use of [facility] TBIL is not recommended. Chloride [Moles/Vol] 103 mmol/L 98-107 [facility] Cholesterol [Mass/Vol] 116 mg/dL <200 [facility] Comment on above: <200 mg/dL Desirable 200-240 mg/dL Borderline >240 mg/dL High Risk Eosinophils/100 WBC (Bld) 3.3 % 0-5 [facility] Glucose [Mass/Vol] 266 mg/dL 74-106 [facility] Comment on above: Glucose result great er than or equal to 200 mg/dLsuggests DIABETES MELLITUS per A.D.A. criteria. Neutrophils (Bld) [#/Vol] 2.9 10*3/uL 2.0-7.7 [facility] Neutrophils/100 WBC (Bld) 61.4 % 47-70 [facility] Potassium [Moles/Vol] 4.3 mmol/L 3.5-5.1 [facility] Protein [Mass/Vol] 7.6 g/dL 6.4-8.2 [facility] Sodium [Moles/Vol] 134 mmol/L 136-145 [facility] Triglyceride [Mass/Vol] 86 mg/dL <199 [facility] Comment on above: The drugs N-Acetylcy steine and Metamizole may falsely depress this assay.Serum Triglycerides Reference Interval Normal <150 mg/dL Borderline high 150 - 199 mg/dL High 200 - 499 mg/dL Very High > or = 500 mg/dL WBC (Bld) [#/Vol] 4.8 10*3/uL 4.4-11.0 [facility] Blood erythrocytes count (nu mber/volume)Ordered By: [facility] on 06-08-2022 RBC (Bld) [#/Vol] 4.47 10*6/uL 4.2-5.4 [facility] Blood hemoglobin measurement (mass/volume)Ordered By: [facility] on 06-08-2022 Hemoglobin (Bld) [Mass/Vol] 12.4 g/dL 12.0-15.0 [facility] Blood lymphocytes/100 leukoc ytesOrdered By: [facility] on 06-08-2022 Lymphocytes/100 WBC (Bld) 25.7 % 19-41 [facility] Blood monocytes/100 leukocyt esOrdered By: [facility] on 06-08-2022 Monocytes/100 WBC (Bld) 8.8 % 0-10 [facility] Blood platelet mean volumeOr dered By: [facility] on 06-08-2022 Platelet mean volume (Bld) [Entitic vol] 11.1 fL 6.2-12.0 [facility] Determination of erythrocyte mean corpuscular volume (MCV)Ordered By: [facility] on 06-08-2022 MCV (RBC) [Entitic vol] 88.8 fL 81-99 [facility] Hematocrit Auto (Bld) [Volum e fraction]Ordered By: [facility] on 06-08-2022 Hematocrit (Bld) [Volume fraction] 39.7 % 37-47 [facility] Laboratory - Chemistry and C hemistry - challengeOrdered By: [facility] on 06-08-2022 ALP [Catalytic activity/Vol] 142 U/L 45-117 [facility] ALT [Catalytic activity/Vol] 36 U/L 13-56 [facility] CO2 [Moles/Vol] 22.0 mmol/L 21.0-32.0 [facility] Globulin (S) [Mass/Vol] 4.8 g/dL 2.2-4.2 [facility] Urea nitrogen/Creatinine [Mass ratio] 17.1 mg/mg 10-20 [facility] Laboratory - Hematology and Cell countsOrdered By: [facility] on 06-08-2022 Erythrocyte distribution width (RBC) [Entitic vol] 48.8 fL 35.1-43.9 [facility] Erythrocyte distribution width (RBC) [Ratio] 14.9 % 11.6-14.6 [facility] Immature granulocytes/100 WBC (Bld) 0.200 % 0.0-0.9 [facility] Comment on above: IG% - Immature Granu locytes (promyelocytes, myelocytes and metamyelocytes) > 1% indicates that a LEFT SHIFT is Present. MCH (RBC) [Entitic mass] 27.7 pg 27.0-32.0 [facility] Nucleated RBC/100 WBC (Bld) [Ratio] 0 % 0-5 [facility] MCHC Auto (RBC) [Mass/Vol]Or dered By: [facility] on 06-08-2022 MCHC (RBC) [Mass/Vol] 31.2 g/dL 32-36 [facility] No Panel InformationOrdered By: [facility] on 06-08-2022 Estimated GFR (MDRD) Amer 82 mL/min >60 [facility] Comment on above: GFR Calc Estimated GFR (MDRD) Non-Af Amer 68 mL/min >60 [facility] Comment on above: Non- GFR Calc Vitamin D 25-Hydroxy 56.8 ng/mL [facility] Comment on above: Vitamin D 25(OH) Sta tus Range Deficiency <20 ng/mL (50nmol/L) Insufficiency 20 - 30 ng/mL (50 - 75 nmol/L) Sufficiency 30 - 100 ng/mL (75 - 250 nmol/L) Toxicity >100 ng/mL (>250 nmol/L) Platelets bldOrdered By: [facility] Platelets (Bld) [#/Vol] 145 10*3/uL 150-450 [facility] Serum or plasma albumin kim urement (mass/volume)Ordered By: [facility] on 06-08-2022 Albumin [Mass/Vol] 2.8 g/dL 3.2-5.0 [facility] Serum or plasma albumin/glob ulin mass ratioOrdered By: [facility] on 06-08-2022 Albumin/Globulin [Mass ratio] 0.6 {ratio} 0.9-2.4 [facility] Serum or plasma calcium kim urement (mass/volume)Ordered By: [facility] on 06-08-2022 Calcium [Mass/Vol] 9.0 mg/dL 8.5-10.1 [facility] Serum or plasma cholesterol in HDL measurement (mass/volume)Ordered By: [facility] on 06-08-2022 Cholesterol in HDL [Mass/Vol] 58 mg/dL >40 [facility] Comment on above: The drugs N-Acetylcy steine and Metamizole may falsely depress this assay. Reference Range HDL <40 mg/dL Low HDL Cholesterol HDL >or= 60 mg/dL High HDL Cholesterol Serum or plasma cholesterol in VLDL measurement (mass/volume)Ordered By: [facility] on 06-08-2022 Cholesterol in VLDL [Mass/Vol] 17 mg/dL 5-40 [facility] Serum or plasma creatinine m easurement (mass/volume)Ordered By: [facility] on 06-08-2022 Creatinine [Mass/Vol] 0.88 mg/dL 0.55-1.02 [facility] Comment on above: The validity of the calculated GFR & GFRAA in patients over 70 years has not been determined. Clinical correlation is essential. Serum or plasma low density lipoprotein (LDL) cholesterol measurement (mass/volume)Ordered By: [facility] on 06-08-2022 Cholesterol in LDL [Mass/Vol] 41 mg/dL 0-130 [facility] Serum or plasma urea nitroge n measurement (mass/volume)Ordered By: [facility] on 06-08-2022 Urea nitrogen [Mass/Vol] 15 mg/dL 7-18 [facility] Thin prep Papanicolaou smear with manual screeningOrdered By: [facility] on 06-08-2022 Thin prep Papanicolaou smear with manual screening 39 U/L 15-37 [facility] Thin prep Papanicolaou smear with manual screening 9 5-15 [facility] Whole blood hemoglobin A1c/t otal hemoglobin ratio (mass fraction)Ordered By: [facility] on 06-08-2022 HbA1c (Bld) [Mass fraction] 8.8 % 3.8-5.6 [facility] Comment on above: Normal < 5.7 % Predi abetic 5.7 - 6.4 % Diabetic >or= 6.5 % Please note range changes. Absolute lymphocyte countOrd ered By: Shayna Malhotra on 04-13-2022 Lymphocytes Auto (Unsp spec) [#/Vol] 1.30 10*3/uL 0.83-4.51 [facility] Basophil percentageOrdered B y: Shayna Malhotra on 04-13-2022 Basophils/100 WBC (Bld) 0.2 % 0-1 [facility] Bilirubin [Mass/Vol] 0.40 mg/dL 0.20-1.00 [facility] Comment on above: For patients on eltr ombopag therapy, use of [facility] TBIL is not recommended. Chloride [Moles/Vol] 106 mmol/L 98-107 [facility] Eosinophils/100 WBC (Bld) 3.5 % 0-5 [facility] Glucose [Mass/Vol] 149 mg/dL 74-106 [facility] Comment on above: Fasting Glucose resu lt greater than or equal to 126 mg/dL suggests DIABETES MELLITUS per A.D.A. criteria. Neutrophils (Bld) [#/Vol] 2.5 10*3/uL 2.0-7.7 [facility] Neutrophils/100 WBC (Bld) 54.6 % 47-70 [facility] Potassium [Moles/Vol] 4.5 mmol/L 3.5-5.1 [facility] Protein [Mass/Vol] 7.8 g/dL 6.4-8.2 [facility] Sodium [Moles/Vol] 138 mmol/L 136-145 [facility] WBC (Bld) [#/Vol] 4.6 10*3/uL 4.4-11.0 [facility] Blood erythrocytes count (nu mber/volume)Ordered By: Shayna Malhotra on 04-13-2022 RBC (Bld) [#/Vol] 4.45 10*6/uL 4.2-5.4 [facility] Blood hemoglobin measurement (mass/volume)Ordered By: Shayna Malhotra on 04-13-2022 Hemoglobin (Bld) [Mass/Vol] 12.9 g/dL 12.0-15.0 [facility] Blood lymphocytes/100 leukoc ytesOrdered By: Shayna Malhotra on 04-13-2022 Lymphocytes/100 WBC (Bld) 28.4 % 19-41 [facility] Blood monocytes/100 leukocyt esOrdered By: Shayna Malhotra on 04-13-2022 Monocytes/100 WBC (Bld) 12.9 % 0-10 [facility] Blood platelet mean volumeOr dered By: Shayna Malhotra on 04-13-2022 Platelet mean volume (Bld) [Entitic vol] 11.1 fL 6.2-12.0 [facility] Determination of erythrocyte mean corpuscular volume (MCV)Ordered By: Shayna Malhotra on 04-13-2022 MCV (RBC) [Entitic vol] 90.8 fL 81-99 [facility] Hematocrit Auto (Bld) [Volum e fraction]Ordered By: Shayna Malhotra on 04-13-2022 Hematocrit (Bld) [Volume fraction] 40.4 % 37-47 [facility] Laboratory - Chemistry and C hemistry - challengeOrdered By: Shayna Malhotra on 04-13-2022 ALP [Catalytic activity/Vol] 144 U/L 45-117 [facility] ALT [Catalytic activity/Vol] 32 U/L 13-56 [facility] CO2 [Moles/Vol] 23.0 mmol/L 21.0-32.0 [facility] Globulin (S) [Mass/Vol] 4.8 g/dL 2.2-4.2 [facility] Urea nitrogen/Creatinine [Mass ratio] 15.3 mg/mg 10-20 [facility] Laboratory - Hematology and Cell countsOrdered By: Shayna Malhotra on 04-13-2022 Erythrocyte distribution width (RBC) [Entitic vol] 47.8 fL 35.1-43.9 [facility] Erythrocyte distribution width (RBC) [Ratio] 14.3 % 11.6-14.6 [facility] Immature granulocytes/100 WBC (Bld) 0.400 % 0.0-0.9 [facility] Comment on above: IG% - Immature Granu locytes (promyelocytes, myelocytes and metamyelocytes) > 1% indicates that a LEFT SHIFT is Present. MCH (RBC) [Entitic mass] 29.0 pg 27.0-32.0 [facility] Nucleated RBC/100 WBC (Bld) [Ratio] 0 % 0-5 [facility] MCHC Auto (RBC) [Mass/Vol]Or dered By: Shayna Malhotra on 04-13-2022 MCHC (RBC) [Mass/Vol] 31.9 g/dL 32-36 [facility] No Panel InformationOrdered By: Shayna Malhtora on 04-13-2022 Estimated GFR (MDRD) Amer 78 mL/min >60 [facility] Comment on above: GFR Calc Estimated GFR (MDRD) Non-Af Amer 65 mL/min >60 [facility] Comment on above: Non- GFR Calc Vitamin D 25-Hydroxy 63.8 ng/mL [facility] Comment on above: Vitamin D 25(OH) Sta tus Range Deficiency <20 ng/mL (50nmol/L) Insufficiency 20 - 30 ng/mL (50 - 75 nmol/L) Sufficiency 30 - 100 ng/mL (75 - 250 nmol/L) Toxicity >100 ng/mL (>250 nmol/L) Platelets bldOrdered By: Evi Malhotra on 04-13-2022 Platelets (Bld) [#/Vol] 157 10*3/uL 150-450 [facility] Serum or plasma albumin kim urement (mass/volume)Ordered By: Shayna Malhotra on 04-13-2022 Albumin [Mass/Vol] 3.0 g/dL 3.2-5.0 [facility] Serum or plasma albumin/glob ulin mass ratioOrdered By: Shayna Malhotra on 04-13-2022 Albumin/Globulin [Mass ratio] 0.6 {ratio} 0.9-2.4 [facility] Serum or plasma calcium kim urement (mass/volume)Ordered By: Shayna Malhotra on 04-13-2022 Calcium [Mass/Vol] 9.0 mg/dL 8.5-10.1 [facility] Serum or plasma creatinine m easurement (mass/volume)Ordered By: Shayna Malhotra on 04-13-2022 Creatinine [Mass/Vol] 0.92 mg/dL 0.55-1.02 [facility] Comment on above: The validity of the calculated GFR & GFRAA in patients over 70 years has not been determined. Clinical correlation is essential. Serum or plasma urea nitroge n measurement (mass/volume)Ordered By: Shayna Malhotra on 04-13-2022 Urea nitrogen [Mass/Vol] 14 mg/dL 7-18 [facility] Thin prep Papanicolaou smear with manual screeningOrdered By: Shayna Malhotra on 04-13-2022 Thin prep Papanicolaou smear with manual screening 40 U/L 15-37 [facility] Thin prep Papanicolaou smear with manual screening 9 5-15 [facility] Basophil percentageon 2021 Bilirubin [Mass/Vol] 0.80 mg/dL 0.20-1.00 [facility] Work Phone: Comment on above: For patients on eltr ombopag therapy, use of [facility] TBIL is not recommended. Chloride [Moles/Vol] 103 mmol/L 98-107 [facility] Work Phone: Glucose [Mass/Vol] 218 mg/dL 74-106 [facility] Work Phone: Comment on above: Glucose result great er than or equal to 200 mg/dLsuggests DIABETES MELLITUS per A.D.A. criteria. Potassium [Moles/Vol] 4.2 mmol/L 3.5-5.1 [facility] Work Phone: Protein [Mass/Vol] 8.0 g/dL 6.4-8.2 [facility] Work Phone: Sodium [Moles/Vol] 135 mmol/L 136-145 [facility] Work Phone: WBC (Bld) [#/Vol] 8.6 10*3/uL 4.4-11.0 [facility] Work Phone: Blood erythrocytes count (nu mber/volume)on 01-01-2022 RBC (Bld) [#/Vol] 4.72 10*6/uL 4.2-5.4 [facility] Work Phone: Blood hemoglobin measurement (mass/volume)on 01-01-2022 Hemoglobin (Bld) [Mass/Vol] 13.5 g/dL 12.0-15.0 [facility] Work Phone: Blood platelet mean volumeon 01-01-2022 Platelet mean volume (Bld) [Entitic vol] 11.0 fL 6.2-12.0 [facility] Work Phone: Determination of erythrocyte mean corpuscular volume (MCV)on 01-01-2022 MCV (RBC) [Entitic vol] 86.2 fL 81-99 [facility] Work Phone: Hematocrit Auto (Bld) [Volum e fraction]on 01-01-2022 Hematocrit (Bld) [Volume fraction] 40.7 % 37-47 [facility] Work Phone: Laboratory - Chemistry and C hemistry - challengeon 01-01-2022 ALP [Catalytic activity/Vol] 140 U/L 45-117 [facility] Work Phone: ALT [Catalytic activity/Vol] 35 U/L 13-56 [facility] Work Phone: CO2 [Moles/Vol] 23.0 mmol/L 21.0-32.0 [facility] Work Phone: Globulin (S) [Mass/Vol] 4.9 g/dL 2.2-4.2 [facility] Work Phone: Urea nitrogen/Creatinine [Mass ratio] 13.8 mg/mg 10-20 [facility] Work Phone: Laboratory - Hematology and Cell countson 01-01-2022 Erythrocyte distribution width (RBC) [Entitic vol] 55.6 fL 35.1-43.9 [facility] Work Phone: Erythrocyte distribution width (RBC) [Ratio] 17.5 % 11.6-14.6 [facility] Work Phone: MCH (RBC) [Entitic mass] 28.6 pg 27.0-32.0 [facility] Work Phone: MCHC Auto (RBC) [Mass/Vol]on 01-01-2022 MCHC (RBC) [Mass/Vol] 33.2 g/dL 32-36 [facility] Work Phone: No Panel Informationon 01-01 Estimated GFR (MDRD) Amer 64 mL/min >60 [facility] Work Phone: Comment on above: GFR Calc Estimated GFR (MDRD) Non-Af Amer 53 mL/min >60 [facility] Work Phone: Comment on above: Non- GFR Calc Platelets bldon 01-01-2022 Platelets (Bld) [#/Vol] 141 10*3/uL 150-450 [facility] Work Phone: Serum or plasma albumin kim urement (mass/volume)on 01-01-2022 Albumin [Mass/Vol] 3.1 g/dL 3.2-5.0 [facility] Work Phone: Serum or plasma albumin/glob ulin mass ratioon 01-01-2022 Albumin/Globulin [Mass ratio] 0.6 {ratio} 0.9-2.4 [facility] Work Phone: Serum or plasma calcium kim urement (mass/volume)on 01-01-2022 Calcium [Mass/Vol] 9.3 mg/dL 8.5-10.1 [facility] Work Phone: Serum or plasma creatinine m easurement (mass/volume)on 01-01-2022 Creatinine [Mass/Vol] 1.09 mg/dL 0.55-1.02 [facility] Work Phone: Comment on above: The validity of the calculated GFR & GFRAA in patients over 70 years has not been determined. Clinical correlation is essential. Serum or plasma urea nitroge n measurement (mass/volume)on 01-01-2022 Urea nitrogen [Mass/Vol] 15 mg/dL 7-18 [facility] Work Phone: Thin prep Papanicolaou smear with manual screeningon 01-01-2022 Thin prep Papanicolaou smear with manual screening 36 U/L 15-37 [facility] Work Phone: Thin prep Papanicolaou smear with manual screening 9 5-15 [facility] Work Phone: Whole blood hemoglobin A1c/t otal hemoglobin ratio (mass fraction)on 01-01-2022 HbA1c (Bld) [Mass fraction] 8.7 % 3.8-5.6 [facility] Work Phone: Comment on above: Normal < 5.7 % Predi abetic 5.7 - 6.4 % Diabetic >or= 6.5 % Please note range changes. Basophil percentageon 2021 Bilirubin [Mass/Vol] 0.40 mg/dL 0.20-1.00 [facility] Work Phone: Comment on above: For patients on eltr ombopag therapy, use of [facility] TBIL is not recommended. Chloride [Moles/Vol] 103 mmol/L 98-107 [facility] Work Phone: Glucose [Mass/Vol] 216 mg/dL 74-106 [facility] Work Phone: Comment on above: Glucose result great er than or equal to 200 mg/dLsuggests DIABETES MELLITUS per A.D.A. criteria. Potassium [Moles/Vol] 4.4 mmol/L 3.5-5.1 [facility] Work Phone: Protein [Mass/Vol] 6.5 g/dL 6.4-8.2 [facility] Work Phone: Sodium [Moles/Vol] 136 mmol/L 136-145 [facility] Work Phone: WBC (Bld) [#/Vol] 6.2 10*3/uL 4.4-11.0 [facility] Work Phone: Blood erythrocytes count (nu mber/volume)on 12-01-2021 RBC (Bld) [#/Vol] 4.09 10*6/uL 4.2-5.4 [facility] Work Phone: Blood hemoglobin measurement (mass/volume)on 12-01-2021 Hemoglobin (Bld) [Mass/Vol] 11.3 g/dL 12.0-15.0 [facility] Work Phone: Blood platelet mean volumeon 12-01-2021 Platelet mean volume (Bld) [Entitic vol] 10.8 fL 6.2-12.0 [facility] Work Phone: Determination of erythrocyte mean corpuscular volume (MCV)on 12-01-2021 MCV (RBC) [Entitic vol] 85.8 fL 81-99 [facility] Work Phone: Comment on above: Delta: 79.2 on 11/27 Hematocrit Auto (Bld) [Volum e fraction]on 12-01-2021 Hematocrit (Bld) [Volume fraction] 35.1 % 37-47 [facility] Work Phone: Laboratory - Chemistry and C hemistry - challengeon 12-01-2021 ALP [Catalytic activity/Vol] 130 U/L 45-117 [facility] Work Phone: ALT [Catalytic activity/Vol] 48 U/L 13-56 [facility] Work Phone: CK [Catalytic activity/Vol] 27 U/L 26-192 [facility] Work Phone: CO2 [Moles/Vol] 27.0 mmol/L 21.0-32.0 [facility] Work Phone: Globulin (S) [Mass/Vol] 4.2 g/dL 2.2-4.2 [facility] Work Phone: Urea nitrogen/Creatinine [Mass ratio] 31.2 mg/mg 10-20 [facility] Work Phone: Laboratory - Hematology and Cell countson 12-01-2021 Erythrocyte distribution width (RBC) [Entitic vol] 48.3 fL 35.1-43.9 [facility] Work Phone: Erythrocyte distribution width (RBC) [Ratio] 15.4 % 11.6-14.6 [facility] Work Phone: MCH (RBC) [Entitic mass] 27.6 pg 27.0-32.0 [facility] Work Phone: MCHC Auto (RBC) [Mass/Vol]on 12-01-2021 MCHC (RBC) [Mass/Vol] 32.2 g/dL 32-36 [facility] Work Phone: Comment on above: Delta: 34.7 on 11/27 No Panel Informationon 12-01 Estimated GFR (MDRD) Amer 91 mL/min >60 [facility] Work Phone: Comment on above: GFR Calc Estimated GFR (MDRD) Non-Af Amer 76 mL/min >60 [facility] Work Phone: Comment on above: Non- GFR Calc Platelets bldon 12-01-2021 Platelets (Bld) [#/Vol] 231 10*3/uL 150-450 [facility] Work Phone: Serum or plasma albumin kim urement (mass/volume)on 12-01-2021 Albumin [Mass/Vol] 2.3 g/dL 3.2-5.0 [facility] Work Phone: Serum or plasma albumin/glob ulin mass ratioon 12-01-2021 Albumin/Globulin [Mass ratio] 0.5 {ratio} 0.9-2.4 [facility] Work Phone: Serum or plasma calcium kim urement (mass/volume)on 12-01-2021 Calcium [Mass/Vol] 8.8 mg/dL 8.5-10.1 [facility] Work Phone: Serum or plasma creatinine m easurement (mass/volume)on 12-01-2021 Creatinine [Mass/Vol] 0.80 mg/dL 0.55-1.02 [facility] Work Phone: Comment on above: The validity of the calculated GFR & GFRAA in patients over 70 years has not been determined. Clinical correlation is essential. Serum or plasma urea nitroge n measurement (mass/volume)on 12-01-2021 Urea nitrogen [Mass/Vol] 25 mg/dL 7-18 [facility] Work Phone: Thin prep Papanicolaou smear with manual screeningon 12-01-2021 Thin prep Papanicolaou smear with manual screening 69 U/L 15-37 [facility] Work Phone: Thin prep Papanicolaou smear with manual screening 6 5-15 [facility] Work Phone: Whole blood hemoglobin A1c/t otal hemoglobin ratio (mass fraction)on 12-01-2021 HbA1c (Bld) [Mass fraction] 10.6 % 3.8-5.6 [facility] Work Phone: Comment on above: Normal < 5.7 % Predi abetic 5.7 - 6.4 % Diabetic >or= 6.5 % Please note range changes. Basophil percentageon 2021 Bilirubin [Mass/Vol] 0.40 mg/dL 0.20-1.00 [facility] Work Phone: Comment on above: For patients on eltr ombopag therapy, use of [facility] TBIL is not recommended. Chloride [Moles/Vol] 102 mmol/L 98-107 [facility] Work Phone: Glucose [Mass/Vol] 256 mg/dL 74-106 [facility] Work Phone: Comment on above: Glucose result great er than or equal to 200 mg/dLsuggests DIABETES MELLITUS per A.D.A. criteria. Potassium [Moles/Vol] 4.4 mmol/L 3.5-5.1 [facility] Work Phone: Protein [Mass/Vol] 7.0 g/dL 6.4-8.2 [facility] Work Phone: Sodium [Moles/Vol] 133 mmol/L 136-145 [facility] Work Phone: WBC (Bld) [#/Vol] 5.6 10*3/uL 4.4-11.0 [facility] Work Phone: Blood erythrocytes count (nu mber/volume)on 11-27-2021 RBC (Bld) [#/Vol] 4.47 10*6/uL 4.2-5.4 [facility] Work Phone: Blood hemoglobin measurement (mass/volume)on 11-27-2021 Hemoglobin (Bld) [Mass/Vol] 12.3 g/dL 12.0-15.0 [facility] Work Phone: Blood platelet mean volumeon 11-27-2021 Platelet mean volume (Bld) [Entitic vol] 11.9 fL 6.2-12.0 [facility] Work Phone: Determination of erythrocyte mean corpuscular volume (MCV)on 11-27-2021 MCV (RBC) [Entitic vol] 79.2 fL 81-99 [facility] Work Phone: Comment on above: Delta: 83.4 on 11/24 Hematocrit Auto (Bld) [Volum e fraction]on 11-27-2021 Hematocrit (Bld) [Volume fraction] 35.4 % 37-47 [facility] Work Phone: Laboratory - Chemistry and C hemistry - challengeon 11-27-2021 ALP [Catalytic activity/Vol] 127 U/L 45-117 [facility] Work Phone: ALT [Catalytic activity/Vol] 28 U/L 13-56 [facility] Work Phone: CO2 [Moles/Vol] 25.0 mmol/L 21.0-32.0 [facility] Work Phone: Globulin (S) [Mass/Vol] 4.6 g/dL 2.2-4.2 [facility] Work Phone: Urea nitrogen/Creatinine [Mass ratio] 15.9 mg/mg 10-20 [facility] Work Phone: Laboratory - Hematology and Cell countson 11-27-2021 Erythrocyte distribution width (RBC) [Entitic vol] 41.4 fL 35.1-43.9 [facility] Work Phone: Erythrocyte distribution width (RBC) [Ratio] 14.5 % 11.6-14.6 [facility] Work Phone: MCH (RBC) [Entitic mass] 27.5 pg 27.0-32.0 [facility] Work Phone: MCHC Auto (RBC) [Mass/Vol]on 11-27-2021 MCHC (RBC) [Mass/Vol] 34.7 g/dL 32-36 [facility] Work Phone: No Panel Informationon 11-27 Estimated GFR (MDRD) Amer 108 mL/min >60 [facility] Work Phone: Comment on above: GFR Calc Estimated GFR (MDRD) Non-Af Amer 89 mL/min >60 [facility] Work Phone: Comment on above: Non- GFR Calc Platelets bldon 11-27-2021 Platelets (Bld) [#/Vol] 154 10*3/uL 150-450 [facility] Work Phone: Serum or plasma albumin kim urement (mass/volume)on 11-27-2021 Albumin [Mass/Vol] 2.4 g/dL 3.2-5.0 [facility] Work Phone: Serum or plasma albumin/glob ulin mass ratioon 11-27-2021 Albumin/Globulin [Mass ratio] 0.5 {ratio} 0.9-2.4 [facility] Work Phone: Serum or plasma calcium kim urement (mass/volume)on 11-27-2021 Calcium [Mass/Vol] 8.9 mg/dL 8.5-10.1 [facility] Work Phone: Serum or plasma creatinine m easurement (mass/volume)on 11-27-2021 Creatinine [Mass/Vol] 0.69 mg/dL 0.55-1.02 [facility] Work Phone: Comment on above: The validity of the calculated GFR & GFRAA in patients over 70 years has not been determined. Clinical correlation is essential. Serum or plasma urea nitroge n measurement (mass/volume)on 11-27-2021 Urea nitrogen [Mass/Vol] 11 mg/dL 7-18 [facility] Work Phone: Thin prep Papanicolaou smear with manual screeningon 11-27-2021 Thin prep Papanicolaou smear with manual screening 31 U/L 15-37 [facility] Work Phone: Thin prep Papanicolaou smear with manual screening 6 5-15 [facility] Work Phone: Absolute lymphocyte counton 11-24-2021 Lymphocytes Auto (Unsp spec) [#/Vol] 1.01 10*3/uL 0.83-4.51 [facility] Work Phone: Basophil percentageon 2021 Basophil percentage 3.5 mg/dL 2.5-4.9 [facility] Work Phone: Basophils/100 WBC (Bld) 0.4 % 0-1 [facility] Work Phone: Bilirubin [Mass/Vol] 0.40 mg/dL 0.20-1.00 [facility] Work Phone: Comment on above: For patients on eltr ombopag therapy, use of [facility] TBIL is not recommended. Chloride [Moles/Vol] 105 mmol/L 98-107 [facility] Work Phone: Eosinophils/100 WBC (Bld) 2.3 % 0-5 [facility] Work Phone: Glucose [Mass/Vol] 321 mg/dL 74-106 [facility] Work Phone: Comment on above: Glucose result great er than or equal to 200 mg/dLsuggests DIABETES MELLITUS per A.D.A. criteria. Neutrophils (Bld) [#/Vol] 3.8 10*3/uL 2.0-7.7 [facility] Work Phone: Neutrophils/100 WBC (Bld) 66.8 % 47-70 [facility] Work Phone: Potassium [Moles/Vol] 4.2 mmol/L 3.5-5.1 [facility] Work Phone: Protein [Mass/Vol] 6.6 g/dL 6.4-8.2 [facility] Work Phone: Sodium [Moles/Vol] 133 mmol/L 136-145 [facility] Work Phone: WBC (Bld) [#/Vol] 5.6 10*3/uL 4.4-11.0 [facility] Work Phone: Blood erythrocytes count (nu mber/volume)on 11-24-2021 RBC (Bld) [#/Vol] 3.91 10*6/uL 4.2-5.4 [facility] Work Phone: Blood hemoglobin measurement (mass/volume)on 11-24-2021 Hemoglobin (Bld) [Mass/Vol] 11.0 g/dL 12.0-15.0 [facility] Work Phone: Blood lymphocytes/100 leukoc yteson 11-24-2021 Lymphocytes/100 WBC (Bld) 17.9 % 19-41 [facility] Work Phone: Blood monocytes/100 leukocyt eson 11-24-2021 Monocytes/100 WBC (Bld) 12.1 % 0-10 [facility] Work Phone: Blood platelet mean volumeon 11-24-2021 Platelet mean volume (Bld) [Entitic vol] 11.4 fL 6.2-12.0 [facility] Work Phone: Determination of erythrocyte mean corpuscular volume (MCV)on 11-24-2021 MCV (RBC) [Entitic vol] 83.4 fL 81-99 [facility] Work Phone: Glucose Glucometer (BldC) [M ass/Vol]on 11-24-2021 Glucose [Mass/Vol] 307 mg/dL 74-106 [facility] Work Phone: Comment on above: MANAGEMENT OF PATIEN T CARE PER NURSING PROTOCOL Glucose [Mass/Vol] 339 mg/dL 74-106 [facility] Work Phone: Comment on above: MANAGEMENT OF PATIEN T CARE PER NURSING PROTOCOL Hematocrit Auto (Bld) [Volum e fraction]on 11-24-2021 Hematocrit (Bld) [Volume fraction] 32.6 % 37-47 [facility] Work Phone: Laboratory - Chemistry and C hemistry - challengeon 11-24-2021 ALP [Catalytic activity/Vol] 116 U/L 45-117 [facility] Work Phone: ALT [Catalytic activity/Vol] 33 U/L 13-56 [facility] Work Phone: CK [Catalytic activity/Vol] 500 U/L 26-192 [facility] Work Phone: CO2 [Moles/Vol] 22.0 mmol/L 21.0-32.0 [facility] Work Phone: Globulin (S) [Mass/Vol] 4.4 g/dL 2.2-4.2 [facility] Work Phone: Magnesium [Mass/Vol] 2.3 mg/dL 1.6-2.6 [facility] Work Phone: Urea nitrogen/Creatinine [Mass ratio] 24.3 mg/mg 10-20 [facility] Work Phone: Laboratory - Hematology and Cell countson 11-24-2021 Erythrocyte distribution width (RBC) [Entitic vol] 45.1 fL 35.1-43.9 [facility] Work Phone: Erythrocyte distribution width (RBC) [Ratio] 14.9 % 11.6-14.6 [facility] Work Phone: Immature granulocytes/100 WBC (Bld) 0.500 % 0.0-0.9 [facility] Work Phone: Comment on above: IG% - Immature Granu locytes (promyelocytes, myelocytes and metamyelocytes) > 1% indicates that a LEFT SHIFT is Present. MCH (RBC) [Entitic mass] 28.1 pg 27.0-32.0 [facility] [facility] Work Phone: Nucleated RBC/100 WBC (Bld) [Ratio] 0 % 0-5 [facility] Work Phone: MCHC Auto (RBC) [Mass/Vol]on 11-24-2021 MCHC (RBC) [Mass/Vol] 33.7 g/dL 32-36 [facility] Work Phone: No Panel Informationon 11-24 Estimated Creatinine Clearance Calc 51.54 ml/min [facility] Work Phone: Estimated GFR (MDRD) Amer 76 mL/min >60 [facility] Work Phone: Comment on above: GFR Calc Estimated GFR (MDRD) Non-Af Amer 62 mL/min >60 [facility] Work Phone: Comment on above: Non- GFR Calc Platelets bldon 11-24-2021 Platelets (Bld) [#/Vol] 107 10*3/uL 150-450 [facility] Work Phone: Serum or plasma albumin kim urement (mass/volume)on 11-24-2021 Albumin [Mass/Vol] 2.2 g/dL 3.2-5.0 [facility] Work Phone: Serum or plasma albumin/glob ulin mass ratioon 11-24-2021 Albumin/Globulin [Mass ratio] 0.5 {ratio} 0.9-2.4 [facility] Work Phone: Serum or plasma calcium kim urement (mass/volume)on 11-24-2021 Calcium [Mass/Vol] 8.5 mg/dL 8.5-10.1 [facility] Work Phone: Serum or plasma creatinine m easurement (mass/volume)on 11-24-2021 Creatinine [Mass/Vol] 0.94 mg/dL 0.55-1.02 [facility] Work Phone: Comment on above: The validity of the calculated GFR & GFRAA in patients over 70 years has not been determined. Clinical correlation is essential. Serum or plasma urea nitroge n measurement (mass/volume)on 11-24-2021 Urea nitrogen [Mass/Vol] 23 mg/dL 7-18 [facility] Work Phone: Thin prep Papanicolaou smear with manual screeningon 11-24-2021 Thin prep Papanicolaou smear with manual screening 49 U/L 15-37 [facility] Work Phone: Thin prep Papanicolaou smear with manual screening 6 5-15 [facility] Work Phone: Absolute lymphocyte counton 11-22-2021 Lymphocytes Auto (Unsp spec) [#/Vol] 0.27 10*3/uL 0.83-4.51 [facility] Work Phone: Basophil percentageon 2021 Lactate [Moles/Vol] 2.7 mmol/L 0.4-2.0 [facility] Work Phone: Comment on above: Critical Result(s) C alled at: 19:01:05 11/22/2021 by: Sintia Ely Results read back by same. Basophil percentage >100 SEEN /hpf 0-5 [facility] Work Phone: Lactate [Moles/Vol] 4.1 mmol/L 0.4-2.0 [facility] Work Phone: Comment on above: Critical Result(s) C alled at: 14:35:39 11/22/2021 by: Derik Florez. Milad Cordova RN (ER). Results read back by same. Basophils/100 WBC (Bld) 0.3 % 0-1 [facility] Work Phone: Bilirubin [Mass/Vol] 1.00 mg/dL 0.20-1.00 [facility] Work Phone: Comment on above: For patients on eltr ombopag therapy, use of Dimension [facility] TBIL is not recommended. Chloride [Moles/Vol] 97 mmol/L 98-107 [facility] Work Phone: Eosinophils/100 WBC (Bld) 0.0 % 0-5 [facility] Work Phone: Glucose [Mass/Vol] 358 mg/dL 74-106 [facility] Work Phone: Comment on above: Glucose result great er than or equal to 200 mg/dLsuggests DIABETES MELLITUS per A.D.A. criteria. Neutrophils (Bld) [#/Vol] 2.6 10*3/uL 2.0-7.7 [facility] Work Phone: Neutrophils/100 WBC (Bld) 89.3 % 47-70 [facility] Work Phone: Potassium [Moles/Vol] 4.9 mmol/L 3.5-5.1 [facility]: Comment on above: Moderate Hemolysis, Result may be falsely increased. Protein [Mass/Vol] 7.8 g/dL 6.4-8.2 [facility] Work Phone: Sodium [Moles/Vol] 130 mmol/L 136-145 [facility] Work Phone: WBC (Bld) [#/Vol] 2.9 10*3/uL 4.4-11.0 [facility] Work Phone: Bilirubin Test strip Ql (U)o n 11-22-2021 Bilirubin Ql (U) Negative Negative [facility] Work Phone: Blood erythrocytes count (nu mber/volume)on 11-22-2021 RBC (Bld) [#/Vol] 4.66 10*6/uL 4.2-5.4 [facility] Work [facility]: Blood hemoglobin measurement (mass/volume)on 11-22-2021 Hemoglobin (Bld) [Mass/Vol] 12.9 g/dL 12.0-15.0 [facility] Work Phone: Blood lymphocytes/100 leukoc yteson 11-22-2021 Lymphocytes/100 WBC (Bld) 9.4 % 19-41 [facility] Work Phone: Blood manual differential co mment interpretation (narrative result)on 11-22-2021 Manual differential comment Neftali (Bld) [Interp] SCANNED [facility] Work Phone: Comment on above: FEW BANDS NOTED Blood monocytes/100 leukocyt eson 11-22-2021 Monocytes/100 WBC (Bld) 0.7 % 0-10 [facility] Work Phone: Blood platelet mean volumeon 11-22-2021 Platelet mean volume (Bld) [Entitic vol] 11.0 fL 6.2-12.0 [facility] Work Phone: Determination of erythrocyte mean corpuscular volume (MCV)on 11-22-2021 MCV (RBC) [Entitic vol] 83.7 fL 81-99 [facility] Work Phone: Hematocrit Auto (Bld) [Volum e fraction]on 11-22-2021 Hematocrit (Bld) [Volume fraction] 39.0 % 37-47 [facility] Work Phone: INR in Blood by Coagulation assayon 11-22-2021 INR Coag (Bld) [Relative time] 1.6 {INR} [facility] Work Phone: Ketones Test strip Ql (U)on 11-22-2021 Ketones Ql (U) 15 mg/dl Negative [facility] Work Phone: Laboratory - Chemistry and C hemistry - challengeon 11-22-2021 ALP [Catalytic activity/Vol] 170 U/L 45-117 [facility] Work Phone: ALT [Catalytic activity/Vol] 33 U/L 13-56 [facility] Work Phone: CO2 [Moles/Vol] 22.0 mmol/L 21.0-32.0 [facility] Work Phone: Globulin (S) [Mass/Vol] 5.0 g/dL 2.2-4.2 [facility] Work Phone: Urea nitrogen/Creatinine [Mass ratio] 19.1 mg/mg 10-20 [facility] Work Phone: Laboratory - Coagulationon 0 11-22-2021 aPTT Coag (Bld) [Time] 33.5 s 24.1-36.2 [facility] Work Phone: PT Coag (PPP) [Time] 18.6 s 11.7-14.9 [facility] Work Phone: Laboratory - Hematology and Cell countson 11-22-2021 Erythrocyte distribution width (RBC) [Entitic vol] 44.4 fL 35.1-43.9 [facility] Work Phone: Erythrocyte distribution width (RBC) [Ratio] 14.6 % 11.6-14.6 [facility] Work Phone: Immature granulocytes/100 WBC (Bld) 0.300 % 0.0-0.9 [facility] Work Phone: Comment on above: IG% - Immature Granu locytes (promyelocytes, myelocytes and metamyelocytes) > 1% indicates that a LEFT SHIFT is Present. MCH (RBC) [Entitic mass] 27.7 pg 27.0-32.0 [facility] Work Phone: Nucleated RBC/100 WBC (Bld) [Ratio] 0 % 0-5 [facility] Work Phone: Laboratory - Microbiology an d Antimicrobial susceptibilityon 11-22-2021 SARS-CoV-2 (COVID-19) RNA SALLY+probe Ql (Unsp spec) Not detected Not Detect [facility] Work Phone: Comment on above: Normal [...] 11-22-2021 MCHC (RBC) [Mass/Vol] 33.1 g/dL 32-36 [facility] Work Phone: Mucus LM Ql (Urine sed)on Mucus Ql (Urine sed) 0 SEEN /hpf [facility] Work Phone: Nitrite Test strip Ql (U)on 11-22-2021 Nitrite Ql (U) Negative Negative [facility] Work Phone: No Panel Informationon 11-22 Troponin I High Sensitivity 217 pg/mL 3.0-54.0 [facility] Work Phone: Comment on above: Critical Result(s) C alled at: 20:27:57 11/22/2021 by: Sintia Hernandez to Anthony Butcher. Results read back by same. Please Note: New Test Units and Gender Specific Reference Ranges. For more information see Policy Stat Procedure [facility] High Sensitivity Troponin (TNIH) and attachments. Troponin I High Sensitivity 274 pg/mL 3.0-54.0 [facility] Work Phone: Comment on above: Critical Result(s) C alled at: 17:12:08 11/22/2021 by: Sintia Hernandez by Lila Cordova. Results read back by same. Please Note: New Test Units and Gender Specific Reference Ranges. For more information see Policy Stat Procedure [facility] High Sensitivity Troponin (TNIH) and attachments. Estimated Creatinine Clearance Calc 34.36 ml/min [facility] Work Phone: Estimated GFR (MDRD) Amer 48 mL/min >60 [facility] Work Phone: Comment on above: GFR Calc Estimated GFR (MDRD) Non-Af Amer 39 mL/min >60 [facility] Work Phone: Comment on above: Non- GFR Calc Platelets bldon 11-22-2021 Platelets (Bld) [#/Vol] 121 10*3/uL 150-450 [facility] Work Phone: Protein Test strip Ql (U)on 11-22-2021 Protein Ql (U) 100 mg/dl Negative [facility] Work Phone: Review by pathologiston 11-04 Pathologist review Netfali (Unsp spec) [Interp] May foll [facility] Work Phone: Pathologist review Neftali (Unsp spec) [Interp] Reviewed [facility] Work Phone: Comment on above: Previous reported re sult: Analisa jacobson Edited by: BELLA on 11/23/21:1334LeukopeniaMild Thrombocytopenia.Clinical correlation necessary.Cedric Cardoza M.D. 11/23/21 AMENDED REPORT 11/23/21 4 PATH REV previously reported as: October foll Serum or plasma albumin kim urement (mass/volume)on 11-22-2021 Albumin [Mass/Vol] 2.8 g/dL 3.2-5.0 [facility] Work Phone: Serum or plasma albumin/glob ulin mass ratioon 11-22-2021 Albumin/Globulin [Mass ratio] 0.6 {ratio} 0.9-2.4 [facility] Work Phone: Serum or plasma calcium kim urement (mass/volume)on 11-22-2021 Calcium [Mass/Vol] 8.9 mg/dL 8.5-10.1 [facility] Work Phone: Serum or plasma creatinine m easurement (mass/volume)on 11-22-2021 Creatinine [Mass/Vol] 1.41 mg/dL 0.55-1.02 [facility] Work Phone: Comment on above: The validity of the calculated GFR & GFRAA in patients over 70 years has not been determined. Clinical correlation is essential. Serum or plasma urea nitroge n measurement (mass/volume)on 11-22-2021 Urea nitrogen [Mass/Vol] 27 mg/dL 7-18 [facility] Work Phone: Squamous epithelial cells de tection in urine sediment by light microscopyon 11-22-2021 Epithelial cells.squamous LM Ql (Urine sed) 0 SEEN /hpf 5-10 [facility] Work Phone: Thin prep Papanicolaou smear with manual screeningon 11-22-2021 Thin prep Papanicolaou smear with manual screening 65 U/L 15-37 [facility] Work Phone: Comment on above: Moderate Hemolysis, Result may be falsely increased. Thin prep Papanicolaou smear with manual screening 11 5-15 [facility] Work Phone: Urine blood detectionon 11-04 RBC Ql (U) 250 /ul Negative [facility] Work Phone: RBC Ql (U) 0 SEEN /hpf 0-5 [facility] Work Phone: Urine clarityon 11-22-2021 Clarity (U) Cloudy Clear [facility] Work Phone: Urine color determinationon 11-22-2021 Color (U) Yellow Yellow [facility] Work Phone: Urine glucose detectionon Glucose Ql (U) 250 mg/dl Normal [facility] Work Phone: Urine leukocyte esterase det ection by dipstickon 11-22-2021 Leukocyte esterase Test strip Ql (U) 500 /ul Negative [facility] Work Phone: Urine pHon 11-22-2021 pH (U) 6.0 [pH] 5.0 - 8.0 [facility] Work Phone: Urine sediment bacteria coun t by microscopy (number/high power field)on 11-22-2021 Bacteria LM.HPF (Urine sed) [#/Area] 3 /[HPF] None Seen [facility] Work Phone: Urine specific gravity measu rementon 11-22-2021 Specific gravity (U) [Rel density] 1.020 1.002-1.03 0 [facility] Work Phone: Urobilinogen Auto test strip Ql (U)on 11-22-2021 Urobilinogen Ql (U) Normal mg/dl Normal [facility] Work Phone: Whole blood hemoglobin A1c/t otal hemoglobin ratio (mass fraction)on 11-22-2021 HbA1c (Bld) [Mass fraction] 10.2 % 3.8-5.6 [facility] Work Phone: Comment on above: Normal < 5.7 % Predi abetic 5.7 - 6.4 % Diabetic >or= 6.5 % Please note range changes. Whole blood hemoglobin A1c/t otal hemoglobin ratio (mass fraction)on 10-27-2021 HbA1c (Bld) [Mass fraction] 8.3 % 3.8-5.6 [facility] Work Phone: Comment on above: Normal < 5.7 % Predi abetic 5.7 - 6.4 % Diabetic >or= 6.5 % Please note range changes. Absolute lymphocyte counton 10-13-2021 Lymphocytes Auto (Unsp spec) [#/Vol] 1.22 10*3/uL 0.83-4.51 [facility] Work Phone: Basophil percentageon 2021 Basophils/100 WBC (Bld) 0.3 % 0-1 [facility] Work Phone: Bilirubin [Mass/Vol] 0.50 mg/dL 0.20-1.00 [facility] Work Phone: Comment on above: For patients on eltr ombopag therapy, use of Dimension [facility] TBIL is not recommended. Chloride [Moles/Vol] 102 mmol/L 98-107 [facility] Work Phone: Eosinophils/100 WBC (Bld) 1.7 % 0-5 [facility] Work Phone: Glucose [Mass/Vol] 259 mg/dL 74-106 [facility] Work Phone: Comment on above: Glucose result great er than or equal to 200 mg/dLsuggests DIABETES MELLITUS per A.D.A. criteria. Neutrophils (Bld) [#/Vol] 5.1 10*3/uL 2.0-7.7 [facility] Work Phone: Neutrophils/100 WBC (Bld) 70.8 % 47-70 [facility] Work Phone: Potassium [Moles/Vol] 4.4 mmol/L 3.5-5.1 [facility] Work Phone: Protein [Mass/Vol] 7.4 g/dL 6.4-8.2 [facility] Work Phone: Sodium [Moles/Vol] 134 mmol/L 136-145 [facility] Work Phone: WBC (Bld) [#/Vol] 7.1 10*3/uL 4.4-11.0 [facility] Work Phone: Blood erythrocytes count (nu mber/volume)on 10-13-2021 RBC (Bld) [#/Vol] 4.21 10*6/uL 4.2-5.4 [facility] Work Phone: Blood hemoglobin measurement (mass/volume)on 10-13-2021 Hemoglobin (Bld) [Mass/Vol] 12.1 g/dL 12.0-15.0 [facility] Work Phone: Blood lymphocytes/100 leukoc yteson 10-13-2021 Lymphocytes/100 WBC (Bld) 17.1 % 19-41 [facility] Work Phone: Blood monocytes/100 leukocyt eson 10-13-2021 Monocytes/100 WBC (Bld) 9.8 % 0-10 [facility] Work Phone: Blood platelet mean volumeon 10-13-2021 Platelet mean volume (Bld) [Entitic vol] 10.7 fL 6.2-12.0 [facility] Work Phone: Determination of erythrocyte mean corpuscular volume (MCV)on 10-13-2021 MCV (RBC) [Entitic vol] 86.2 fL 81-99 [facility] Work Phone: Hematocrit Auto (Bld) [Volum e fraction]on 10-13-2021 Hematocrit (Bld) [Volume fraction] 36.3 % 37-47 [facility] Work Phone: Laboratory - Chemistry and C hemistry - challengeon 10-13-2021 ALP [Catalytic activity/Vol] 169 U/L 45-117 [facility] Work Phone: ALT [Catalytic activity/Vol] 31 U/L 13-56 [facility] Work Phone: CO2 [Moles/Vol] 25.0 mmol/L 21.0-32.0 [facility] Work Phone: Globulin (S) [Mass/Vol] 4.5 g/dL 2.2-4.2 [facility] Work Phone: Urea nitrogen/Creatinine [Mass ratio] 14.3 mg/mg 10-20 [facility] Work Phone: Laboratory - Hematology and Cell countson 10-13-2021 Erythrocyte distribution width (RBC) [Entitic vol] 45.6 fL 35.1-43.9 [facility] Work Phone: Erythrocyte distribution width (RBC) [Ratio] 14.4 % 11.6-14.6 [facility] Work Phone: Immature granulocytes/100 WBC (Bld) 0.300 % 0.0-0.9 [facility] Work Phone: Comment on above: IG% - Immature Granu locytes (promyelocytes, myelocytes and metamyelocytes) > 1% indicates that a LEFT SHIFT is Present. MCH (RBC) [Entitic mass] 28.7 pg 27.0-32.0 [facility] Work Phone: Nucleated RBC/100 WBC (Bld) [Ratio] 0 % 0-5 [facility] Work Phone: MCHC Auto (RBC) [Mass/Vol]on 10-13-2021 MCHC (RBC) [Mass/Vol] 33.3 g/dL 32-36 [facility] Work Phone: No Panel Informationon 10-13 Estimated GFR (MDRD) Amer 79 mL/min >60 [facility] Work Phone: Comment on above: GFR Calc Estimated GFR (MDRD) Non-Af Amer 66 mL/min >60 [facility] Work Phone: Comment on above: Non- GFR Calc Vitamin D 25-Hydroxy 67.4 ng/mL [facility] Work Phone: Comment on above: Vitamin D 25(OH) Sta tus Range Deficiency <20 ng/mL (50nmol/L) Insufficiency 20 - 30 ng/mL (50 - 75 nmol/L) Sufficiency 30 - 100 ng/mL (75 - 250 nmol/L) Toxicity >100 ng/mL (>250 nmol/L) Platelets bldon 10-13-2021 Platelets (Bld) [#/Vol] 158 10*3/uL 150-450 [facility] Work Phone: Serum or plasma albumin kim urement (mass/volume)on 10-13-2021 Albumin [Mass/Vol] 2.9 g/dL 3.2-5.0 [facility] Work Phone: Serum or plasma albumin/glob ulin mass ratioon 10-13-2021 Albumin/Globulin [Mass ratio] 0.6 {ratio} 0.9-2.4 [facility] Work Phone: Serum or plasma calcium kim urement (mass/volume)on 10-13-2021 Calcium [Mass/Vol] 8.8 mg/dL 8.5-10.1 [facility] Work Phone: Serum or plasma creatinine m easurement (mass/volume)on 10-13-2021 Creatinine [Mass/Vol] 0.91 mg/dL 0.55-1.02 [facility] Work Phone: Comment on above: The validity of the calculated GFR & GFRAA in patients over 70 years has not been determined. Clinical correlation is essential. Serum or plasma urea nitroge n measurement (mass/volume)on 10-13-2021 Urea nitrogen [Mass/Vol] 13 mg/dL 7-18 [facility] Work Phone: Thin prep Papanicolaou smear with manual screeningon 10-13-2021 Thin prep Papanicolaou smear with manual screening 28 U/L 15-37 [facility] Work Phone: Thin prep Papanicolaou smear with manual screening 7 5-15 [facility] Work Phone: CNOVSPon 10-02-2021 CNOVSP Visit (SP) Office (AGGYNONPOB) ----- KELLEVIDA Crain ([id number]) 1950 F Date Time Provider Department 10/02/21 1:00 PM JENNIFER CUEVAS During your visit today, we recorded the following information about you: Temperature Pulse Respiration Blood pressure 97.4 degrees 103/minute 20/minute 152/85 Weight Height 136.5 kg 1.651 m Moriah Aldridge RN 10/02/2021 12:52 PM Signed Patient arrived [place] [address] [place] [address] in [facility] for post op visit. Patient admits to pain in abd and lower back resolved since surgery. Pt denies any new concerns, today. Pt here with Marguerite, sepideh. Enc and support provided. JESUS Lynch MD 12/01/2021 8:04 AM Signed Gynecologic Oncology [facility] Follow up visit Date of service: 10/02/2021 PROBLEM/CC: Vida Nina presents for a post-op visit. SURGICAL PATHOLOGY [[id number]] Collected: 09/07/21 1104 Order Status: Completed Specimen: Tissue from UTERUS, CERVIX, BILATERAL FALLOPIAN TUBES AND BILATERAL OVARIES Updated: 09/11/21 1319 Case Report -- Surgical Pathology Report ? Case: [id number] ? Authorizing Provider: ?Jennifer Cuevas MD ? [...] A11 and A16 were reviewed at the [facility] gynecologic pathology consensus conference via telepathology on 09/09/[address] Lupe Younger and Andra Franco agree with the diagnosis of acute salpingitis. ? Laboratory Developed Test (LDT) Disclaimer: Performance characteristics of immunohistochemical, immunofluorescent and chromogenic in-situ hybridization tests have been determined by the performing laboratory within [facility]?s [facility] [place] ([facility], [facility], [facility] or [facility]) in a manner consistent with [...] (more content not included)... Normal [facility] Glucose Glucometer (BldC) [M ass/Vol]on 09-22-2021 Glucose [Mass/Vol] 145 mg/dL 74-106 [facility] Work Phone: Comment on above: MANAGEMENT OF PATIEN T CARE PER NURSING PROTOCOL Darren 09-21-2021 CNPN Telephone (ÁNGEL Sprague) ----- VIDA NINA ([id number]) 1950 F Date Time Provider Department 09/21/21 JENNIFER CUEVAS During your visit today, we recorded the following information about you: Jeffrey Ferris 09/21/2021 12:15 PM Signed Spoke to Nurse Colindres from [facility] stated that the patient is in [...] ERYTHEMATOSUS [M32.9] 07/15/2005 MYALGIA AND MYOSITIS NOS [[id number]] 07/15/2005 Elevated transaminase level [R74.01] 09/04/2014 Elevated blood sugar [R73.9] 09/04/2014 Mood disorder (HCC) [F39] 09/04/2014 Hard to intubate [T88.4XXA] 09/07/2021 Encounter for postoperative care [Z48.89] 09/07/2021 Endometrial cancer (HCC) [C54.1] 09/08/2021 Encounter Status:Closed by JEFFREY FERRIS on 09/21/21 [facility] Absolute lymphocyte counton 09-20-2021 Lymphocytes Auto (Unsp spec) [#/Vol] 0.99 10*3/uL 0.83-4.51 [facility] Work Phone: Basophil percentageon 2021 Basophils/100 WBC (Bld) 0.6 % 0-1 [facility] Work Phone: Chloride [Moles/Vol] 109 mmol/L 98-107 [facility]: Eosinophils/100 WBC (Bld) 2.6 % 0-5 [facility] Work Phone: Glucose [Mass/Vol] 211 mg/dL 74-106 [facility] Work Phone: Comment on above: Glucose result great er than or equal to 200 mg/dLsuggests DIABETES MELLITUS per A.D.A. criteria. Neutrophils (Bld) [#/Vol] 3.4 10*3/uL 2.0-7.7 [facility] Work Phone: Neutrophils/100 WBC (Bld) 67.6 % 47-70 [facility] Work Phone: Potassium [Moles/Vol] 4.4 mmol/L 3.5-5.1 [facility] Work Phone: Sodium [Moles/Vol] 138 mmol/L 136-145 [facility] Work Phone: WBC (Bld) [#/Vol] 5.0 10*3/uL 4.4-11.0 [facility] Work Phone: Blood erythrocytes count (nu mber/volume)on 09-20-2021 RBC (Bld) [#/Vol] 4.50 10*6/uL 4.2-5.4 [facility] Work Phone: Blood hemoglobin measurement (mass/volume)on 09-20-2021 Hemoglobin (Bld) [Mass/Vol] 12.8 g/dL 12.0-15.0 [facility] Work Phone: Blood lymphocytes/100 leukoc yteson 09-20-2021 Lymphocytes/100 WBC (Bld) 19.7 % 19-41 [facility] Work Phone: Blood monocytes/100 leukocyt eson 09-20-2021 Monocytes/100 WBC (Bld) 9.1 % 0-10 [facility] Work Phone: Blood platelet mean volumeon 09-20-2021 Platelet mean volume (Bld) [Entitic vol] 9.8 fL 6.2-12.0 [facility] Work Phone: Determination of erythrocyte mean corpuscular volume (MCV)on 09-20-2021 MCV (RBC) [Entitic vol] 87.6 fL 81-99 [facility] Work Phone: Hematocrit Auto (Bld) [Volum e fraction]on 09-20-2021 Hematocrit (Bld) [Volume fraction] 39.4 % 37-47 [facility] Work Phone: Laboratory - Chemistry and C hemistry - challengeon 09-20-2021 CO2 [Moles/Vol] 24.0 mmol/L 21.0-32.0 [facility] Work Phone: Natriuretic peptide B (Bld) [Mass/Vol] 43.0 pg/mL 0-100 [facility] Work Phone: Urea nitrogen/Creatinine [Mass ratio] 14.0 mg/mg 10-20 [facility] Work Phone: Laboratory - Hematology and Cell countson 09-20-2021 Erythrocyte distribution width (RBC) [Entitic vol] 47.4 fL 35.1-43.9 [facility] Work Phone: Erythrocyte distribution width (RBC) [Ratio] 14.7 % 11.6-14.6 [facility] Work Phone: Immature granulocytes/100 WBC (Bld) 0.400 % 0.0-0.9 [facility] Work Phone: Comment on above: IG% - Immature Granu locytes (promyelocytes, myelocytes and metamyelocytes) > 1% indicates that a LEFT SHIFT is Present. MCH (RBC) [Entitic mass] 28.4 pg 27.0-32.0 [facility] Work Phone: Nucleated RBC/100 WBC (Bld) [Ratio] 0 % 0-5 [facility] Work Phone: MCHC Auto (RBC) [Mass/Vol]on 09-20-2021 MCHC (RBC) [Mass/Vol] 32.5 g/dL 32-36 [facility] [facility] Work Phone: No Panel Informationon 09-20 Troponin I High Sensitivity < 3 pg/mL 3.0-54.0 [facility] Work Phone: Comment on above: Please Note: New Emma t Units and Gender Specific Reference Ranges. For more information see Policy Stat Procedure [facility] High Sensitivity Troponin (TNIH) and attachments. D-Dimer Quantitative (PE/DVT) 2.47 FEU/ug/m 0.27-0.49 [facility] Work Phone: Comment on above: D-Dimer ELEVATED (>0 .49): Additional studies and clinicalassessments are indicated to conclude diagnosis of:Deep Vein Thrombosis (DVT) or Pulmonary Embolism (PE)CRITICAL VALUE VERIFIED. CALLED TO [place] [phone] Taniya Burden.RESULTS READ BACK BY SAME . Estimated Creatinine Clearance Calc 56.34 ml/min [facility] Work Phone: Estimated GFR (MDRD) Amer 85 mL/min >60 [facility] Work Phone: Comment on above: GFR Calc Estimated GFR (MDRD) Non-Af Amer 70 mL/min >60 [facility] Work Phone: Comment on above: Non- GFR Calc Platelets bldon 09-20-2021 Platelets (Bld) [#/Vol] 161 10*3/uL 150-450 [facility] Work Phone: Serum or plasma calcium kim urement (mass/volume)on 09-20-2021 Calcium [Mass/Vol] 9.4 mg/dL 8.5-10.1 [facility] Work Phone: Serum or plasma creatinine m easurement (mass/volume)on 09-20-2021 Creatinine [Mass/Vol] 0.86 mg/dL 0.55-1.02 [facility] ster [facility] Work Phone: Comment on above: The validity of the calculated GFR & GFRAA in patients over 70 years has not been determined. Clinical correlation is essential. Serum or plasma urea nitroge n measurement (mass/volume)on 09-20-2021 Urea nitrogen [Mass/Vol] 12 mg/dL 7-18 [facility] Work Phone: Thin prep Papanicolaou smear with manual screeningon 09-20-2021 Thin prep Papanicolaou smear with manual screening 5 5-15 [facility] Work Phone: OPERATIVE NOon 09-17-2021 OPERATIVE NO HNO ID: [id number] Author: Jennifer Cuevas MD Service: Gynecology Oncology Author Type: Physician Type: Operative Report Filed: 09/23/2021 10:50 AM Note Text: [facility] - Operative Report VIDA NINA : 1950 AGE: 70. SEX: F PATIENT TYPE: I HOSP SVC: OBGYN LOCATION: [id number] ATTENDING PHYSICIAN: Jennifer Cuevas M.D. CSN NUMBER: [id number] DATE OF SURGERY/PROCEDURE: 09/07/2021 INCISION/PROCEDURE START TIME: 09:14 a.m. INCISION CLOSE/PROCEDURE END TIME: 12:36 p.m. 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 SURGEON: Jennifer Cuevas M.D. GELATIN DYNAMITE PACKING OPERATOR: assistant speech language pathologist, Dr. Donal Naidu and Dr. Shanon Seymour. [...] (more content not included)... Normal [facility] Bilirubin Test strip Ql (U)o n 09-10-2021 Bilirubin Ql (U) Negative Negative [facility] Work Phone: Darren 09-10-2021 MICHELLEN Telephone (ÁNGEL Sprague) ----- VIDA NINA ([id number]) 1950 F Date Time Provider Department 09/10/21 TANIYA BALDERAS During your visit today, we recorded the following information about you: Taniya Balderas APRN.MICHELLE 09/10/2021 8:32 AM Signed Called [facility] left message on nurse line to [...] to. meds that are susceptible are iv. [facility] can recheck urine if still + then would need to get ID involved verbal instructions per Dr julieth Balderas, GILA.[employer]URAL REPAIRER Allergies As of Date: 09/10/2021 Noted Allergy [...] ERYTHEMATOSUS [M32.9] 07/15/2005 MYALGIA AND MYOSITIS NOS [[id number]] 07/15/2005 Elevated transaminase level [R74.01] 09/04/2014 Elevated blood sugar [R73.9] 09/04/2014 Mood disorder (HCC) [F39] 09/04/2014 Hard to intubate [T88.4XXA] 09/07/2021 Encounter for postoperative care [Z48.89] 09/07/2021 Endometrial cancer (HCC) [C54.1] 09/08/2021 Encounter Status:Closed by TANIYA BALDERAS on 09/10/21 Normal [facility] Culture, urineon 09-10-2021 Bacteria identified Cx Nom (U) Negative [facility] Work Phone: Ketones Test strip Ql (U)on 09-10-2021 Ketones Ql (U) Negative Negative [facility] Work Phone: Nitrite Test strip Ql (U)on 09-10-2021 Nitrite Ql (U) Negative Negative [facility] Work Phone: Protein Test strip Ql (U)on 09-10-2021 Protein Ql (U) Negative Negative [facility] Work Phone: Urine blood detectionon 04-0 RBC Ql (U) 25 /ul Negative [facility] Work Phone: Urine clarityon 09-10-2021 Clarity (U) Clear Clear [facility] Work Phone: Urine color determinationon 09-10-2021 Color (U) Yellow Yellow [facility] Work Phone: Urine glucose detectionon Glucose Ql (U) Normal mg/dl Normal [facility] Work Phone: Urine leukocyte esterase det ection by dipstickon 09-10-2021 Leukocyte esterase Test strip Ql (U) 25 /ul Negative [facility] Work Phone: Urine pHon 09-10-2021 pH (U) 7.0 [pH] 5.0 - 8.0 [facility] Work Phone: Urine specific gravity measu rementon 09-10-2021 Specific gravity (U) [Rel density] 1.005 1.002-1.03 0 [facility] Work Phone: Urobilinogen Auto test strip Ql (U)on 09-10-2021 Urobilinogen Ql (U) Normal mg/dl Normal [facility] Work Phone: ANES POSTPROC EVALon 022 ANES POSTPROC EVAL HNO ID: [id number] Author: Darrion Payne MD Service: Anesthesiology Author Type: Physician Type: Anesthesia Postprocedure Evaluation Filed: 09/09/2021 12:30 PM Note Text: POST ANESTHESIA EVALUATION NOTE : 1950 Procedure Summary Date: 09/07/21 Room / Location: [place] Anesthesia Start: 812 Anesthesia Stop: 1242 [...] September 09, 2021 TIME: 12:30 PM CSN: [id number] [facility] MICHELLENon 09-09-2021 CNPN Telephone (JOSE MANUELSARAEB Sprague) ----- VIDA NINA ([id number]) 1950 F Date Time Provider Department 09/09/21 JENNIFER CUEVAS During your visit today, we recorded the following information about you: Summer Turcios RN 09/09/2021 2:15 PM Signed Franklin, nursing service administrator at [facility] called stated, "one of patient's lap [...] confidential e-mail) Attempted to call Franklin at [facility] to review above message, no answer. Left message on voicemail to return call. JESUS Shah RN 09/09/2021 2:53 PM Signed Franklin from [facility] returned call to this RN. Reviewed [...] ERYTHEMATOSUS [M32.9] 07/15/2005 MYALGIA AND MYOSITIS NOS [[id number]] 07/15/2005 Elevated transaminase level [R74.01] 09/04/2014 Elevated blood sugar [R73.9] 09/04/2014 Mood disorder (HCC) [F39] 09/04/2014 Hard to intubate [T88.4XXA] 09/07/2021 Encounter for postoperative care [Z48.89] 09/07/2021 Endometrial cancer (HCC) [C54.1] 09/08/2021 Encounter Status:Closed by SUMMER TURCIOS on 09/09/21 [facility] CASE MANAGEMon 09-08-2021 CASE MANAGEM HNO ID: [id number] Author: Rosmery Mclaughlin RN Service: ? Author [...] Rafael Resendiz is aware of DC and product picker time. RN to call report. TRANSPORTATION ARRANGEMENTS: Transportation Arrangements: ([facility]) ADDITIONAL CONTACT RESOURCES: n/a DC orders completed. Patient is discharging back to [facility]. The facility has arranged for [facility] transport to pick her up at 1pm. RN is aware. Met with patient at bedside to notify of DC and transport time. SIGNATURE: Rosmery Mclaughlin RN PATIENT NAME: Vida Nina DATE: September 08, 2021 TIME: 12:28 PM PAGER/CONTACT #: [phone] [facility] HNO ID: [id number] Author: Rosmery Mclaughlin RN Service: ? Author Type: Registered Nurse Type: Care Mgt Initial Assessment Filed: 09/08/2021 10:24 AM Note Text: CARE MANAGEMENT: ASSESSMENT AND DISCHARGE PLAN SERVICE DATE: September 08, 2021 SERVICE TIME: 10:22 AM PRIMARY CARE PHYSICIAN: No primary care provider on file. 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: To return home to life as it was;To have reduction in pain Health Insurance: Merged with [facility];Medicare;Medicaid Health Issues Impacting Discharge Plan: Newly [...] None Has the Patient Been in a Fpc Facility in the Past 30 days?: No SOCIAL: Living Arrangements: Assisted Living Lives With: N/A Patient from Facility Facility Information: [facility] [place] Financial Resources: Disabled Primary Contact: Extended Emergency [...] plan for meeting these needs: return to [place] Patient's perception of need for this admission: surgery Are you interested in bedside delivery of your medications? No Is Patient Psychosocially Complex?: No ASSESSMENT AND PLAN: Medical Needs: Medical Needs: Two or more chronic diseases Psychosocial Needs: Psychosocial Needs: None FREEDOM OF CHOICE EXPLAINED: [place] of Choice Given: No Reason Not Given: Patient refused (patient prefers to return to [facility]) POTENTIAL TRANSITION PLANS Home Chart reviewed and met with patient. She is from [facility]. Needs assistance TIN P[employer]ER, uses no DME. Plan is to return to [place]. Spoke with Zari at [facility]. They will send [facility] transport to product picker patient at 1pm. Will updated patient and RN. SIGNATURE: Rosmery Mclaughlin RN PATIENT NAME: Viad Nina DATE: September 08, 2021 TIME: 10:22 AM PAGER/CONTACT #: [phone] [facility] HNO ID: [id number] Author: Sam Naidu DO Service: Gynecology Oncology [...] Time Provider Department Center 09/22/2021 2:30 PM [id number] CUEVAS PO DISCHARGE MEDICATIONS Current Discharge Medication [...] September 08, 2021 TIME: 7:27 AM PAGER: [phone] Normal [facility] ANES PRE-OPon 09-07-2021 ANES PRE-OP HNO ID: [id number] Author: Darrion Payne MD Service: Anesthesiology Author [...] (N/A Abdomen) LAPAROTOMY PELVIC (N/A Pelvis) Location: [place] 12 / [place] Surgeons: Jennifer [...] September 07, 2021 TIME: 8:57 AM CSN: [id number] [facility] BRIEF OP NOTon 09-07-2021 BRIEF OP NOT HNO ID: [id number] Author: Sam Naidu DO Service: Gynecology Oncology Author Type: Resident Type: Brief Op Note Filed: 09/07/2021 1:06 PM Note Text: BRIEF OPERATIVE / PROCEDURE NOTE LOG ID: [id number] SURGERY/PROCEDURE DATE: 09/07/2021 INCISION/PROCEDURE START TIME: 9:14 AM INCISION CLOSE/PROCEDURE END TIME: 12:36 PM SURGEON(S)/PROCEDURALIST( S) AND GELATIN DYNAMITE PACKING OPERATOR(S): Surgeon(s) and Role: * Jennifer Cuevas [...] September 07, 2021 TIME: 1:01 PM Normal [facility] Bacteria Ur Culton 2 Bacteria identified [...] sulfameth R >2 F Abnormal [facility] Comment on above: Performed By: #### 6 30-4 ####[facility] [id number] [place] [address] [place] [facility] Basic metabolic 2000 panelon 09-07-2021 Anion gap [Moles/Vol] 13 mmol/L Normal 9-18 [facility] Comment on above: Order Comment: Speci men Type: BLOOD SPECIMEN Ordering Facility: [facility] Address: [address] [address] Performed By: #### 2 4321-2 #### [facility] CLIA [id number] [address] STATES OF [facility] Calcium [Mass/Vol] 9.2 mg/dL Normal 8.5-10.2 [facility] Comment on above: Order Comment: Bobbi alford Type: BLOOD SPECIMEN Ordering Facility: [facility] Address: [address] [address] Performed By: #### 2 4321-2 #### [facility] CLIA [id number] [address] [place] Chloride [Moles/Vol] 97 mmol/L Normal 97-105 [facility] Comment on above: Order Comment: Speci men Type: BLOOD SPECIMEN Ordering Facility: [facility] Address: [address] [place] [address] Performed By: #### 2 4321-2 #### [facility] CLIA [id number] [address] OF [facility] CO2 [Moles/Vol] 22 mmol/L Normal 22-30 [facility] Comment on above: Order Comment: Speci men Type: BLOOD SPECIMEN Ordering Facility: [facility] Address: [address] [place] [address] Performed By: #### 2 4321-2 #### [facility] CLIA [id number] [address] Creatinine [Mass/Vol] 0.70 mg/dL Normal 0.58-0.96 [facility] Comment on above: Order Comment: Speci men Type: BLOOD SPECIMEN Ordering Facility: [facility] Address: [address] [place] [address] Performed By: #### 2 4321-2 #### [facility] CLIA [id number] [address] [place] [address] ESTIMATED GLOMERULAR FILTRATION RATE 94 mL/min/1.73m??? Normal >=60 [facility] Comment on above: Order Comment: Speci men Type: BLOOD SPECIMEN Ordering Facility: [facility] Address: [address] [place] [address] Result Comment: Laura mated Glomerular Filtration Rate [...] GFR. Performed By: #### 2 4321-2 #### [facility] CLIA [id number] 1 [place] [address] [place] Glucose [Mass/Vol] 303 mg/dL High 74-99 [facility] Comment on above: Order Comment: Bobbi alford Type: BLOOD SPECIMEN Ordering Facility: [facility] Address: [address] [place] [address] Result Comment: The [place] Diabetes Association (ADA) provides guidance for cutoff [...] Standards of Medical Care in Diabetes 2016, [place] [employer]. Diabetes Care. 2016.39(Suppl 1). Performed By: #### 2 4321-2 #### [facility] CLIA [id number] 1 [place] [address] [place] Potassium [Moles/Vol] 4.9 mmol/L Normal 3.7-5.1 [facility] Comment on above: Order Comment: Bobbi alford Type: BLOOD SPECIMEN Ordering Facility: [facility] Address: [address] [place] [address] Performed By: #### 2 4321-2 #### [facility] CLIA [id number] 1 [place] [address] [place] Sodium [Moles/Vol] 132 mmol/L Low 136-144 [facility] Comment on above: Order Comment: Bobbi alford Type: BLOOD SPECIMEN Ordering Facility: [facility] Address: [address] [place] [address] Performed By: #### 2 4321-2 #### [facility] CLIA [id number] 1 [place] [address] [place] Urea nitrogen [Mass/Vol] 13 mg/dL Normal 7-21 [facility] Comment on above: Order Comment: Speci men Type: BLOOD SPECIMEN Ordering Facility: [facility] Address: [address] [place] [address] Performed By: #### 2 4321-2 #### [facility] CLIA [id number] [address] STATES OF [facility] CBC panel Auto (Bld)on 09-07 Erythrocyte distribution width (RBC) [Ratio] 14.2 % Normal 11.5-15.0 [facility] Comment on above: Order Comment: Speci men Type: BLOOD SPECIMEN Ordering Facility: [facility] Address: [address] [place] [address] Performed By: #### 5 8410-2 #### [facility] CLIA [id number] [address] Hematocrit (Bld) [Volume fraction] 44.0 % Normal 36.0-46.0 [facility] Comment on above: Order Comment: Speci men Type: BLOOD SPECIMEN Ordering Facility: [facility] Address: [address] [place] [address] Performed By: #### 5 8410-2 #### [facility] CLIA [id number] [address] STATES OF [facility] Hemoglobin (Bld) [Mass/Vol] 14.2 g/dL Normal 11.5-15.5 [facility] Comment on above: Order Comment: Speci men Type: BLOOD SPECIMEN Ordering Facility: [facility] Address: [address] [place] [address] Performed By: #### 5 8410-2 #### [facility] CLIA [id number] [address] [place] MCH (RBC) [Entitic mass] 28.9 pg Normal 26.0-34.0 [facility] Comment on above: Order Comment: Speci men Type: BLOOD SPECIMEN Ordering Facility: [facility] Address: [address] [place] [address] Performed By: #### 5 8410-2 #### [facility] CLIA [id number] [address] MCHC (RBC) [Mass/Vol] 32.3 g/dL Normal 30.5-36.0 [facility] Comment on above: Order Comment: Speci men Type: BLOOD SPECIMEN Ordering Facility: [facility] Address: [address] [place] [address] Performed By: #### 5 8410-2 #### [facility] CLIA [id number] [address] MCV (RBC) [Entitic vol] 89.6 fL Normal 80.0-100.0 [facility] Comment on above: Order Comment: Speci men Type: BLOOD SPECIMEN Ordering Facility: [facility] Address: [address] [place] [address] Performed By: #### 5 8410-2 #### [facility] CLIA [id number] [address] Nucleated RBC (Bld) [#/Vol] 10*3/uL Normal <0.01 [facility] Comment on above: Order Comment: Speci men Type: BLOOD SPECIMEN Ordering Facility: [facility] Address: [address] [place] [address] Performed By: #### 5 8410-2 #### [facility] CLIA [id number] [address] Platelet mean volume (Bld) [Entitic vol] 10.8 fL Normal 9.0-12.7 [facility] Comment on above: Order Comment: Speci men Type: BLOOD SPECIMEN Ordering Facility: [facility] Address: [address] [place] [address] Performed By: #### 5 8410-2 #### [facility] CLIA [id number] [address] [place] Platelets (Bld) [#/Vol] 153 10*3/uL Normal 150-400 [facility] Comment on above: Order Comment: Speci men Type: BLOOD SPECIMEN Ordering Facility: [facility] Address: [address] [place] [address] Performed By: #### 5 8410-2 #### [facility] CLIA [id number] [address] RBC (Bld) [#/Vol] 4.91 10*6/uL Normal 3.90-5.20 [facility] Comment on above: Order Comment: Speci men Type: BLOOD SPECIMEN Ordering Facility: [facility] Address: [address] [place] [address] Performed By: #### 5 8410-2 #### [facility] CLIA [id number] [address] WBC (Bld) [#/Vol] 8.23 10*3/uL Normal 3.70-11.00 [facility] Comment on above: Order Comment: Speci men Type: BLOOD SPECIMEN Ordering Facility: [facility] Address: [address] [place] [address] Performed By: #### 5 8410-2 #### [facility] CLIA [id number] [address] CONSULT PROGon 09-07-2021 CONSULT PROG HNO ID: [id number] Author: Niki Crabtree RPh Service: Pharmacy Author [...] Crabtree RPh DATE/TIME: 09/07/2021 4:32 PM Normal [facility] NURSING PROGon 09-07-2021 NURSING PROG HNO ID: [id number] Author: Lydia Oliver RN Service: Nursing Author Type: Registered Nurse Type: Nursing Progress Note Filed: 09/07/2021 3:19 PM Note Text: Spoke with Bernadine at [facility] to let her know patient was spending the night, as she said there is no nursing staff after 2300 [facility] NURSING PROG HNO ID: [id number] Author: Lydia Oliver RN Service: Nursing Author [...] will continue home meds on the floor. [facility] SARS-CoV-2 RNA Resp Ql SALLY+p robeon 09-07-2021 SARS-CoV-2 (COVID-19) RNA SALLY+probe Ql (Resp) COVID 19 RESULT: SARS-CoV-2 (Agent of COVID-19) Not Detected by RT-PCR or equivalent method. This test has been authorized by FDA under an Emergency Use Authorization (EUA). [facility] Comment on above: Performed By: #### 9 4500-6 ####[facility] [id number] [address] STATES OF [facility] SURGICAL PATHOLOGYon 022 CASE REPORT [facility] Comment on above: Order Comment: Speci men Type: TISSUE SPECIMEN Ordering Facility: [facility] Address: [address] [place] [phone] Result Comment: Surg ical Pathology Report Case: [id number] Authorizing Provider: Jennifer Cuevas MD Collected: 09/07/2021 11:04 AM Ordering Location: [place] [facility] Received: 09/07/2021 11:12 AM Pathologist: Oseas May MD Intraop: Derick Alvarez MD Specimen: UTERUS, CERVIX, BILATERAL FALLOPIAN TUBES AND BILATERAL OVARIES Performed By: #### S #### [facility] CLIA [id number] [address] DIAGNOSIS COMMENT Normal [facility] Comment on above: Order Comment: Speci men Type: TISSUE SPECIMEN Ordering Facility: [facility] Address: [address] [place] [phone] Result Comment: Immu nohistochemical staining performed on [...] A11 and A16 were reviewed at the [facility] gynecologic pathology consensus conference via telepathology on 09/09/[address] Lupe Younger and Andra Franco agree with the diagnosis of acute salpingitis. Laboratory Developed Test (LDT) Disclaimer: Performance characteristics of immunohistochemical, immunofluorescent and chromogenic in-situ hybridization tests have been determined by the performing laboratory within [facility]???[facility] Medicine [place] ([facility], [facility], [facility] or [facility]) in a manner consistent with CLIA requirements. One or more of these tests have not been cleared or approved by the FDA. [facility] is regulated under CLIA as qualified to perform high-complexity testing. These tests are used for clinical purposes. They should not be regarded as investigational or for research. Positive and negative controls stain appropriately. Performed By: #### S #### [facility] CLIA [id number] [address] FINAL DIAGNOSIS Normal [facility] Comment on above: Order Comment: Speci men Type: TISSUE SPECIMEN Ordering Facility: [facility] Address: [address] [place] [phone] Result Comment: A. U terus, cervix, bilateral [...] -Unremarkable ovaries. Performed By: #### S #### [facility] CLIA [id number] [address] [place] [address] FINAL PERFORMING LAB Normal [facility] Comment on above: Order Comment: Speci men Type: TISSUE SPECIMEN Ordering Facility: [facility] Address: [address] [place] [address] Result Comment: Diag nostic interpretation performed at [facility], [address] [place] [address] CLIA# [id number] Supplier Quality Specialist: Alok Jonas M.D. Performed By: #### S #### [facility] CLIA [id number] [address] GROSS DESCRIPTION Normal [facility] Comment on above: Order Comment: Speci men Type: TISSUE SPECIMEN Ordering Facility: [facility] Address: [address] [place] [address] Result Comment: A. U TERUS, CERVIX, BILATERAL [...] fibrous ovarian parenchyma with no lesions identified. Deep Submergence Vehicle Crewmember sections are submitted as follows: A1-anterior cervix [...] A 17-right ovary Gross examination performed at [facility], [address] [place] [address] CLIA#[id number] OLS September 08, 2021 10:33 AM Performed By: #### S #### [facility] CLIA [id number] [address] [place] INTRAOPERATIVE DIAGNOSIS Normal [facility] Comment on above: Order Comment: Speci men Type: TISSUE SPECIMEN Ordering Facility: [facility] Address: [address] [place] [address] Result Comment: A. U TERUS, CERVIX, BILATERAL FALLOPIAN TUBES AND BILATERAL OVARIES. Gross diagnosis: Uterus, cervix, bilateral fallopian tubes, bilateral ovaries- Endometrial tumor grossly invading greater than 50% into the uterine wall (AC) Performed By: #### S #### [facility] CLIA [id number] [address] [place] SYNOPTIC REPORT ENDOMETRIUM Normal [facility] Comment on above: Order Comment: Speci men Type: TISSUE SPECIMEN Ordering Facility: [facility] Address: [address] [place] [address] Result Comment: ENDO METRIUM, HYSTERECTOMY - All [...] IB Performed By: #### S #### [facility] CLIA [id number] [address] CBC panel Auto (Bld)on 09-01 Erythrocyte distribution width (RBC) [Ratio] 14.5 % Normal 11.5-15.0 [facility] Comment on above: Order Comment: Specrobby alford Type: BLOOD SPECIMEN Ordering Facility: [facility] Address: [address] [address] Performed By: #### 5 8410-2 #### [facility] CLIA [id number] [address] [facility] Hematocrit (Bld) [Volume fraction] 41.0 % Normal 36.0-46.0 [facility] Comment on above: Order Comment: Laurai prashanth Type: BLOOD SPECIMEN Ordering Facility: [facility] Address: [address] [address] Performed By: #### 5 8410-2 #### [facility] CLIA [id number] [address] OF [facility] Hemoglobin (Bld) [Mass/Vol] 13.3 g/dL Normal 11.5-15.5 [facility] Comment on above: Order Comment: Laurai men Type: BLOOD SPECIMEN Ordering Facility: [facility] Address: [address] [address] Performed By: #### 5 8410-2 #### [facility] CLIA [id number] [address] MCH (RBC) [Entitic mass] 28.8 pg Normal 26.0-34.0 [facility] Comment on above: Order Comment: Speci men Type: BLOOD SPECIMEN Ordering Facility: [facility] Address: [address] [place] [address] Performed By: #### 5 8410-2 #### [facility] CLIA [id number] [address] MCHC (RBC) [Mass/Vol] 32.4 g/dL Normal 30.5-36.0 [facility] Comment on above: Order Comment: Speci men Type: BLOOD SPECIMEN Ordering Facility: [facility] Address: [address] [place] [address] Performed By: #### 5 8410-2 #### [facility] CLIA [id number] [address] MCV (RBC) [Entitic vol] 88.7 fL Normal 80.0-100.0 [facility] Comment on above: Order Comment: Speci men Type: BLOOD SPECIMEN Ordering Facility: [facility] Address: [address] [place] [address] Performed By: #### 5 8410-2 #### [facility] CLIA [id number] [address] Nucleated RBC (Bld) [#/Vol] 10*3/uL Normal <0.01 [facility] Comment on above: Order Comment: Speci men Type: BLOOD SPECIMEN Ordering Facility: [facility] Address: [address] [place] [address] Performed By: #### 5 8410-2 #### [facility] CLIA [id number] [address] Platelet mean volume (Bld) [Entitic vol] 10.5 fL Normal 9.0-12.7 [facility] Comment on above: Order Comment: Speci men Type: BLOOD SPECIMEN Ordering Facility: [facility] Address: [address] [place] [address] Performed By: #### 5 8410-2 #### [facility] CLIA [id number] [address] Platelets (Bld) [#/Vol] 167 10*3/uL Normal 150-400 [facility] Comment on above: Order Comment: Speci men Type: BLOOD SPECIMEN Ordering Facility: [facility] Address: [address] [place] [address] Performed By: #### 5 8410-2 #### [facility] CLIA [id number] [address] RBC (Bld) [#/Vol] 4.62 10*6/uL Normal 3.90-5.20 [facility] Comment on above: Order Comment: Speci men Type: BLOOD SPECIMEN Ordering Facility: [facility] Address: [address] [place] [address] Performed By: #### 5 8410-2 #### [facility] CLIA [id number] [address] WBC (Bld) [#/Vol] 6.29 10*3/uL Normal 3.70-11.00 [facility] Comment on above: Order Comment: Speci men Type: BLOOD SPECIMEN Ordering Facility: [facility] Address: [address] [place] [address] Performed By: #### 5 8410-2 #### [facility] CLIA [id number] [address] CONFIRM BLOOD TYPEon 022 ABO O Normal [facility] Comment on above: Order Comment: Speci men Type: BLOOD SPECIMEN Ordering Facility: [facility] Address: [address] [place] [address] Performed By: #### C ONABO #### [facility] CLIA [id number] [address] Rh Nom (Bld) Positive Normal [facility] Comment on above: Order Comment: Speci men Type: BLOOD SPECIMEN Ordering Facility: [facility] Address: [facility] [place] [address] Performed By: #### C ONABO #### [facility] CLIA [id number] [address] [id number] [place] HISTORY PHYSICALon HISTORY PHYSICAL HNO ID: [id number] Author: Naila Barrientos APRN.CNP Service: ? Author Type: Nurse Practitioner Type: [...] with Dr. Cuevas. Surgery will be at [place] Scheduled as an TBA Have you been in contact with someone with known coronavirus/Covid 19? no Have you had surgery or pre testing at [facility] in the past 3 years? no [...] Negative for: AICD/PPM, chest pain, CHF, recent UT and open heart surgery. GI: Positive for: abdominal pain Negative for: nausea and vomiting. : No history of dysuria, frequency or incontinence, stones or chronic kidney disease. No difficulty urinating, nocturia > 1 time per night or hematuria. 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 [...] (more content not included)... Normal [facility] TYPE AND SCREEN,30 DAYon ABO O [facility] Comment on above: Order Comment: Speci men Type: BLOOD SPECIMEN Ordering Facility: [facility] Address: [address] [place] [address] Performed By: #### T SCR30 #### [facility] CLIA [id number] [address] [place] [address] HISTORICAL AB SCR STATUS Negative [facility] Comment on above: Order Comment: Speci men Type: BLOOD SPECIMEN Ordering Facility: [facility] Address: [address] [place] [address] Performed By: #### T SCR30 #### [facility] CLIA [id number] [address] [place] [address] [place] Rh Nom (Bld) Positive [facility] Comment on above: Order Comment: Speci men Type: BLOOD SPECIMEN Ordering Facility: [facility] Address: [address] [place] [address] Performed By: #### T SCR30 #### [facility] CLIA [id number] [address] [place] [address] OF [place] CNOVSPon 08-21-2021 CNOVSP Visit (SP) Office (AGGYNONPODarcie) ----- VIDA NINA ([id number]) 1950 F Date Time Provider Department 08/21/21 1:30 PM JENNIFER CUEVAS During your visit today, we recorded the following information about you: Temperature Pulse Blood pressure Weight 97.8 degrees 113/minute 144/72 130 kg Height 1.651 m Jennifer Cuevas MD 08/26/2021 1:21 PM Signed Gynecologic Oncology [facility] Consult Date of service: 08/21/2021 PCP: [...] many years since she has seen a skills instructor, maybe > 10 years. 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 Age at Menarche: ? Age at First : ? Age at Menopause: ? Senior Net Software Engineer History Comments: ? Sexual Activity: [...] (more content not included)... Normal [facility] Darren 08-07-2021 SHORTY Telephone (ÁNGEL Sprague) ----- VIDA NINA ([id number]) 1950 F Date Time Provider Department 08/07/21 JENNIFER CUEVAS During your visit today, we recorded the following information about you: Jeffrey Ferris 08/07/2021 1:26 PM Signed Called gilberto the nurse at [facility] where the patient is living and [...] ERYTHEMATOSUS [M32.9] 07/15/2005 MYALGIA AND MYOSITIS NOS [[id number]] 07/15/2005 Elevated transaminase level [R74.01] 09/04/2014 Elevated blood sugar [R73.9] 09/04/2014 Mood disorder (HCC) [F39] 09/04/2014 Encounter Status:Closed by JEFFREY FERRIS on 08/07/21 Normal [facility] Darren 08-05-2021 CNPN Telephone (OBGYWM) ----- VIDA NINA ([id number]) 1950 F Date Time Provider Department 08/05/21 KRUNAL ERAZOGY During your visit today, we recorded the following information about you: Krunal Erazo MD 08/05/2021 8:30 AM Signed Called listed numbers under home phone, and the numbers are not working. Called number listed for patient's patient case coordinator regarding results, but it was stated that patient does not have a patient case coordinator currently. I was given the number [phone] to call, which is [facility] where patient resides. Called this number and left a VM asking them to call back regarding patient results. I had offered the patient a follow up visit this week to review results, but she did prefer a phone call. Pathology shows endometrioid adenocarcinoma. I will place a referral to [facility]. Recommend that she see Dr. Jennifer Cuevas in [place] as that would be the closest for her. Krunal Erazo MD 08/05/2021 10:06 AM Signed Discussed results with a nurse Gilberto over the phone and plan of care. She states patient saw an oncologist as well at [facility] and is scheduled for a CTAP. She will have the patient call our office back today for me to discuss results with her as well. Krunal Erazo MD 08/05/2021 10:19 AM Signed Discussed results with the patient and she understands the biopsy shows an endometrial cancer, and that I placed a referral to [facility] for a consultation. Please assist in scheduling this patient. Andra Jesus RN 08/05/2021 11:33 AM Signed Scheduled patient with Dr. Cuevas this Tuesday, 08/07 at 1:00 PM. Spoke with the nurse, Gilberto. Patient's CT scan is scheduled for Tuesday. Phone number given to change appointment since transportation needs arranged. Notified Gilberto that he is in [place] on Tuesdays and every other Tuesday. 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] Order(s):CONSULT TO GYNECOLOGIC/ONCOLOGY [[id number]] Order #: [id number]: 1 FUTURE Prescriptions as of 08/05/2021 - [...] ERYTHEMATOSUS [M32.9] 07/15/2005 MYALGIA AND MYOSITIS NOS [[id number]] 07/15/2005 Elevated transaminase level [R74.01] 09/04/2014 Elevated blood sugar [R73.9] 09/04/2014 Mood disorder (HCC) [F39] 09/04/2014 Encounter Status:Closed by AUDRA MATUTE RN on 08/05/21 [facility] No Panel Informationon 07-30 CA 125 Antigen 85.5 U/mL 0.0-38.1 [facility] Work Phone: Comment on above: [employer] El ectrochemiluminescence Immunoassay(ECLIA)Values obtained with different assay methods or kits cannotbe used interchangeably. 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 Normal [facility] SURGICAL PATHOLOGYon SURGICAL PATHOLOGY ADDENDUM PRESENT Specimen originated from [facility] Specimen #: [id number] Submitting Physician: KRUNAL ERAZO DO FINAL DIAGNOSIS [...] in-situ hybridization tests have been determined by [facility]'s [facility] Pathology and Laboratory Medicine [place] [facility]) in a manner consistent with CLIA requirements. One or more of these tests have not been cleared or approved by the FDA. [facility] is regulated under CLIA as qualified to [...] completed on all uterine/endometrial carcinomas at the [facility]. IHC stains for MMR proteins [...] more information or questions, please call the [facility] at . Andra Webb (more content not included)... Normal [facility] CNPNon 07-27-2021 CNPN Telephone (OBGYWM) ----- VIDA NINA ([id number]) 1950 F CPA Date Time Provider Department 07/27/21 KRUNAL ERAZO OBTRUDY During your visit today, we recorded the following information about you: Andra Jesus RN 07/27/2021 8:14 AM Signed KJ states that patient was seen at [facility] ER yesterday for vaginal bleeding and possible pelvic mass. Called [facility] ER and requested records and imaging [...] patient is minimally ambulatory and coming from [facility]. Since she is a new patient who is minimally ambulatory, and likely needs an EMB and cervical biopsies, would prefer to have 60 min appointment to get everything completed in one day as well as counseling center director her. Can offer her the 2.20 and [...] ERYTHEMATOSUS [M32.9] 07/15/2005 MYALGIA AND MYOSITIS NOS [[id number]] 07/15/2005 Elevated transaminase level [R74.01] 09/04/2014 Elevated blood sugar [R73.9] 09/04/2014 Mood disorder (HCC) [F39] 09/04/2014 Encounter Status:Closed by ELISABETH GREEN LPN on 07/27/21 Normal [facility] Absolute lymphocyte counton 07-26-2021 Lymphocytes Auto (Unsp spec) [#/Vol] 1.24 10*3/uL 0.83-4.51 [facility] Work Phone: Basophil percentageon 2021 Basophils/100 WBC (Bld) 0.6 % 0-1 [facility] Work Phone: Chloride [Moles/Vol] 105 mmol/L 98-107 [facility] Work Phone: Eosinophils/100 WBC (Bld) 3.9 % 0-5 [facility] Work Phone: Glucose [Mass/Vol] 185 mg/dL 74-106 [facility] Work Phone: Comment on above: Fasting Glucose resu lt greater than or equal to 126 mg/dL suggests DIABETES MELLITUS per A.D.A. criteria. Neutrophils (Bld) [#/Vol] 3.2 10*3/uL 2.0-7.7 [facility] Work Phone: Neutrophils/100 WBC (Bld) 62.1 % 47-70 [facility] Work Phone: Potassium [Moles/Vol] 4.4 mmol/L 3.5-5.1 [facility] Work Phone: Sodium [Moles/Vol] 135 mmol/L 136-145 [facility] Work Phone: WBC (Bld) [#/Vol] 5.1 10*3/uL 4.4-11.0 [facility] Work Phone: Blood erythrocytes count (nu mber/volume)on 07-26-2021 RBC (Bld) [#/Vol] 4.66 10*6/uL 4.2-5.4 [facility] Work Phone: Blood hemoglobin measurement (mass/volume)on 07-26-2021 Hemoglobin (Bld) [Mass/Vol] 13.8 g/dL 12.0-15.0 [facility] Work Phone: Blood lymphocytes/100 leukoc yteson 07-26-2021 Lymphocytes/100 WBC (Bld) 24.5 % 19-41 [facility] Work Phone: Blood monocytes/100 leukocyt eson 07-26-2021 Monocytes/100 WBC (Bld) 8.5 % 0-10 [facility] Work Phone: Blood platelet mean volumeon 07-26-2021 Platelet mean volume (Bld) [Entitic vol] 10.1 fL 6.2-12.0 [facility] Work Phone: Determination of erythrocyte mean corpuscular volume (MCV)on 07-26-2021 MCV (RBC) [Entitic vol] 88.2 fL 81-99 [facility] Work Phone: Hematocrit Auto (Bld) [Volum e fraction]on 07-26-2021 Hematocrit (Bld) [Volume fraction] 41.1 % 37-47 [facility] Work Phone: Laboratory - Chemistry and C hemistry - challengeon 07-26-2021 CO2 [Moles/Vol] 24.0 mmol/L 21.0-32.0 [facility] Work Phone: Urea nitrogen/Creatinine [Mass ratio] 17.3 mg/mg - [facility] Work Phone: Laboratory - Hematology and Cell countson 07-26-2021 Erythrocyte distribution width (RBC) [Entitic vol] 46.8 fL 35.1-43.9 [facility] Work Phone: Erythrocyte distribution width (RBC) [Ratio] 14.6 % 11.6-14.6 [facility] Work Phone: Immature granulocytes/100 WBC (Bld) 0.400 % 0.0-0.9 [facility] Work Phone: Comment on above: IG% - Immature Granu locytes (promyelocytes, myelocytes and metamyelocytes) > 1% indicates that a LEFT SHIFT is Present. MCH (RBC) [Entitic mass] 29.6 pg 27.0-32.0 [facility] Work Phone: Nucleated RBC/100 WBC (Bld) [Ratio] 0 % 0-5 [facility] Work Phone: MCHC Auto (RBC) [Mass/Vol]on 07-26-2021 MCHC (RBC) [Mass/Vol] 33.6 g/dL 32-36 [facility] Work Phone: No Panel Informationon 07-26 Estimated Creatinine Clearance Calc 55.69 ml/min [facility] Work Phone: Estimated GFR (MDRD) Amer 84 mL/min >60 [facility] Work Phone: Comment on above: GFR Calc Estimated GFR (MDRD) Non-Af Amer 69 mL/min >60 [facility] Work Phone: Comment on above: Non- GFR Calc Platelets bldon 07-26-2021 Platelets (Bld) [#/Vol] 151 10*3/uL 150-450 [facility] Work Phone: Serum or plasma calcium kim urement (mass/volume)on 07-26-2021 Calcium [Mass/Vol] 9.2 mg/dL 8.5-10.1 [facility] Work Phone: Serum or plasma creatinine m easurement (mass/volume)on 07-26-2021 Creatinine [Mass/Vol] 0.87 mg/dL 0.55-1.02 [facility] Work Phone: Comment on above: The validity of the calculated GFR & GFRAA in patients over 70 years has not been determined. Clinical correlation is essential. Serum or plasma urea nitroge n measurement (mass/volume)on 07-26-2021 Urea nitrogen [Mass/Vol] 15 mg/dL 7-18 [facility] Work Phone: Thin prep Papanicolaou smear with manual screeningon 07-26-2021 Thin prep Papanicolaou smear with manual screening 6 5-15 [facility] Work Phone: Absolute lymphocyte counton 07-14-2021 Lymphocytes Auto (Unsp spec) [#/Vol] 1.32 10*3/uL 0.83-4.51 [facility] Work Phone: Basophil percentageon 2021 Basophils/100 WBC (Bld) 0.6 % 0-1 [facility] Work Phone: Bilirubin [Mass/Vol] 0.40 mg/dL 0.20-1.00 [facility] Work Phone: Comment on above: For patients on eltr ombopag therapy, use of [facility] TBIL is not recommended. Chloride [Moles/Vol] 104 mmol/L 98-107 [facility] Work Phone: Eosinophils/100 WBC (Bld) 3.1 % 0-5 [facility] Work Phone: Glucose [Mass/Vol] 201 mg/dL 74-106 [facility] Work Phone: Comment on above: Glucose result great er than or equal to 200 mg/dLsuggests DIABETES MELLITUS per A.D.A. criteria. Neutrophils (Bld) [#/Vol] 3.0 10*3/uL 2.0-7.7 [facility] Work Phone: Neutrophils/100 WBC (Bld) 59.5 % 47-70 [facility] Work Phone: Potassium [Moles/Vol] 4.2 mmol/L 3.5-5.1 [facility] Work Phone: Protein [Mass/Vol] 7.6 g/dL 6.4-8.2 [facility] Work Phone: Sodium [Moles/Vol] 136 mmol/L 136-145 [facility] Work Phone: WBC (Bld) [#/Vol] 5.1 10*3/uL 4.4-11.0 [facility] Work Phone: Blood erythrocytes count (nu mber/volume)on 07-14-2021 RBC (Bld) [#/Vol] 4.23 10*6/uL 4.2-5.4 [facility] Work Phone: Blood hemoglobin measurement (mass/volume)on 07-14-2021 Hemoglobin (Bld) [Mass/Vol] 12.9 g/dL 12.0-15.0 [facility] Work Phone: Blood lymphocytes/100 leukoc yteson 07-14-2021 Lymphocytes/100 WBC (Bld) 26.0 % 19-41 [facility] Work Phone: Blood monocytes/100 leukocyt eson 07-14-2021 Monocytes/100 WBC (Bld) 10.4 % 0-10 [facility] Work Phone: Blood platelet mean volumeon 07-14-2021 Platelet mean volume (Bld) [Entitic vol] 10.9 fL 6.2-12.0 [facility] Work Phone: Determination of erythrocyte mean corpuscular volume (MCV)on 07-14-2021 MCV (RBC) [Entitic vol] 88.9 fL 81-99 [facility] Work Phone: Hematocrit Auto (Bld) [Volum e fraction]on 07-14-2021 Hematocrit (Bld) [Volume fraction] 37.6 % 37-47 [facility] Work Phone: Laboratory - Chemistry and C hemistry - challengeon 07-14-2021 ALP [Catalytic activity/Vol] 144 U/L 45-117 [facility] Work Phone: ALT [Catalytic activity/Vol] 28 U/L 13-56 [facility] Work Phone: CO2 [Moles/Vol] 24.0 mmol/L 21.0-32.0 [facility] Work Phone: Globulin (S) [Mass/Vol] 4.7 g/dL 2.2-4.2 [facility] Work Phone: Urea nitrogen/Creatinine [Mass ratio] 18.0 mg/mg 10-20 [facility] Work Phone: Laboratory - Hematology and Cell countson 07-14-2021 Erythrocyte distribution width (RBC) [Entitic vol] 46.7 fL 35.1-43.9 [facility] Work Phone: Erythrocyte distribution width (RBC) [Ratio] 14.5 % 11.6-14.6 [facility] Work Phone: Immature granulocytes/100 WBC (Bld) 0.400 % 0.0-0.9 [facility] Work Phone: Comment on above: IG% - Immature Granu locytes (promyelocytes, myelocytes and metamyelocytes) > 1% indicates that a LEFT SHIFT is Present. MCH (RBC) [Entitic mass] 30.5 pg 27.0-32.0 [facility] Work Phone: Nucleated RBC/100 WBC (Bld) [Ratio] 0 % 0-5 [facility] Work Phone: MCHC Auto (RBC) [Mass/Vol]on 07-14-2021 MCHC (RBC) [Mass/Vol] 34.3 g/dL 32-36 [facility] Work Phone: No Panel Informationon 07-14 Estimated GFR (MDRD) Amer 95 mL/min >60 [facility] Work Phone: Comment on above: GFR Calc Estimated GFR (MDRD) Non-Af Amer 78 mL/min >60 [facility] Work Phone: Comment on above: Non- GFR Calc Vitamin D 25-Hydroxy 79.0 ng/mL [facility] Work Phone: Comment on above: Vitamin D 25(OH) Sta tus Range Deficiency <20 ng/mL (50nmol/L) Insufficiency 20 - 30 ng/mL (50 - 75 nmol/L) Sufficiency 30 - 100 ng/mL (75 - 250 nmol/L) Toxicity >100 ng/mL (>250 nmol/L) Platelets bldon 07-14-2021 Platelets (Bld) [#/Vol] 170 10*3/uL 150-450 [facility] Work Phone: Serum or plasma albumin kim urement (mass/volume)on 07-14-2021 Albumin [Mass/Vol] 2.9 g/dL 3.2-5.0 [facility] Work Phone: Serum or plasma albumin/glob ulin mass ratioon 07-14-2021 Albumin/Globulin [Mass ratio] 0.6 {ratio} 0.9-2.4 [facility] Work Phone: Serum or plasma calcium kim urement (mass/volume)on 07-14-2021 Calcium [Mass/Vol] 8.7 mg/dL 8.5-10.1 [facility] Work Phone: Serum or plasma creatinine m easurement (mass/volume)on 07-14-2021 Creatinine [Mass/Vol] 0.78 mg/dL 0.55-1.02 [facility] Work Phone: Comment on above: The validity of the calculated GFR & GFRAA in patients over 70 years has not been determined. Clinical correlation is essential. Serum or plasma urea nitroge n measurement (mass/volume)on 07-14-2021 Urea nitrogen [Mass/Vol] 14 mg/dL 7-18 [facility] Work Phone: Thin prep Papanicolaou smear with manual screeningon 07-14-2021 Thin prep Papanicolaou smear with manual screening 26 U/L 15-37 [facility] Work Phone: Thin prep Papanicolaou smear with manual screening 8 5-15 [facility] Work Phone: Absolute lymphocyte counton 07-08-2021 Lymphocytes Auto (Unsp spec) [#/Vol] 1.26 10*3/uL 0.83-4.51 [facility] Work Phone: Basophil percentageon 2021 Basophils/100 WBC (Bld) 0.6 % 0-1 [facility] Work Phone: Bilirubin [Mass/Vol] 0.40 mg/dL 0.20-1.00 [facility] Work Phone: Comment on above: For patients on eltr ombopag therapy, use of [facility] TBIL is not recommended. Chloride [Moles/Vol] 104 mmol/L 98-107 [facility] Work Phone: Eosinophils/100 WBC (Bld) 4.5 % 0-5 [facility] Work Phone: Glucose [Mass/Vol] 181 mg/dL 74-106 [facility] Work Phone: Comment on above: Fasting Glucose resu lt greater than or equal to 126 mg/dL suggests DIABETES MELLITUS per A.D.A. criteria. Neutrophils (Bld) [#/Vol] 2.8 10*3/uL 2.0-7.7 [facility] Work Phone: Neutrophils/100 WBC (Bld) 58.0 % 47-70 [facility] Work Phone: Potassium [Moles/Vol] 4.5 mmol/L 3.5-5.1 [facility] Work Phone: Protein [Mass/Vol] 7.5 g/dL 6.4-8.2 [facility] Work Phone: Sodium [Moles/Vol] 136 mmol/L 136-145 [facility] Work Phone: WBC (Bld) [#/Vol] 4.9 10*3/uL 4.4-11.0 [facility] Work Phone: Blood erythrocytes count (nu mber/volume)on 07-08-2021 RBC (Bld) [#/Vol] 4.16 10*6/uL 4.2-5.4 [facility] Work Phone: Blood hemoglobin measurement (mass/volume)on 07-08-2021 Hemoglobin (Bld) [Mass/Vol] 12.2 g/dL 12.0-15.0 [facility] Work Phone: Blood lymphocytes/100 leukoc yteson 07-08-2021 Lymphocytes/100 WBC (Bld) 25.7 % 19-41 [facility] Work Phone: Blood monocytes/100 leukocyt eson 07-08-2021 Monocytes/100 WBC (Bld) 10.8 % 0-10 [facility] Work Phone: Blood platelet mean volumeon 07-08-2021 Platelet mean volume (Bld) [Entitic vol] 11.2 fL 6.2-12.0 [facility] Work Phone: Determination of erythrocyte mean corpuscular volume (MCV)on 07-08-2021 MCV (RBC) [Entitic vol] 89.2 fL 81-99 [facility] Work Phone: Hematocrit Auto (Bld) [Volum e fraction]on 07-08-2021 Hematocrit (Bld) [Volume fraction] 37.1 % 37-47 [facility] Work Phone: Laboratory - Chemistry and C hemistry - challengeon 07-08-2021 ALP [Catalytic activity/Vol] 131 U/L 45-117 [facility] Work Phone: ALT [Catalytic activity/Vol] 32 U/L 13-56 [facility] Work Phone: CO2 [Moles/Vol] 23.0 mmol/L 21.0-32.0 [facility] Work Phone: Globulin (S) [Mass/Vol] 4.6 g/dL 2.2-4.2 [facility] Work Phone: Urea nitrogen/Creatinine [Mass ratio] 18.5 mg/mg 10-20 [facility] Work Phone: Laboratory - Hematology and Cell countson 07-08-2021 Erythrocyte distribution width (RBC) [Entitic vol] 47.6 fL 35.1-43.9 [facility] Work Phone: Erythrocyte distribution width (RBC) [Ratio] 14.6 % 11.6-14.6 [facility] Work Phone: Immature granulocytes/100 WBC (Bld) 0.400 % 0.0-0.9 [facility] Work Phone: Comment on above: IG% - Immature Granu locytes (promyelocytes, myelocytes and metamyelocytes) > 1% indicates that a LEFT SHIFT is Present. MCH (RBC) [Entitic mass] 29.3 pg 27.0-32.0 [facility] Work Phone: Nucleated RBC/100 WBC (Bld) [Ratio] 0 % 0-5 [facility] Work Phone: MCHC Auto (RBC) [Mass/Vol]on 07-08-2021 MCHC (RBC) [Mass/Vol] 32.9 g/dL 32-36 [facility] Work Phone: No Panel Informationon 07-08 Estimated GFR (MDRD) Amer 84 mL/min >60 [facility] Work Phone: Comment on above: GFR Calc Estimated GFR (MDRD) Non-Af Amer 69 mL/min >60 [facility] Work Phone: Comment on above: Non- GFR Calc Vitamin D 25-Hydroxy 88.3 ng/mL [facility] Work Phone: Comment on above: Vitamin D 25(OH) Sta tus Range Deficiency <20 ng/mL (50nmol/L) Insufficiency 20 - 30 ng/mL (50 - 75 nmol/L) Sufficiency 30 - 100 ng/mL (75 - 250 nmol/L) Toxicity >100 ng/mL (>250 nmol/L) Platelets bldon 07-08-2021 Platelets (Bld) [#/Vol] 159 10*3/uL 150-450 [facility] Work Phone: Serum or plasma albumin kim urement (mass/volume)on 07-08-2021 Albumin [Mass/Vol] 2.9 g/dL 3.2-5.0 [facility] Work Phone: Serum or plasma albumin/glob ulin mass ratioon 07-08-2021 Albumin/Globulin [Mass ratio] 0.6 {ratio} 0.9-2.4 [facility] Work Phone: Serum or plasma calcium kim urement (mass/volume)on 07-08-2021 Calcium [Mass/Vol] 9.0 mg/dL 8.5-10.1 [facility] Work Phone: Serum or plasma creatinine m easurement (mass/volume)on 07-08-2021 Creatinine [Mass/Vol] 0.87 mg/dL 0.55-1.02 [facility] Work Phone: Comment on above: The validity of the calculated GFR & GFRAA in patients over 70 years has not been determined. Clinical correlation is essential. Serum or plasma urea nitroge n measurement (mass/volume)on 07-08-2021 Urea nitrogen [Mass/Vol] 16 mg/dL 7-18 [facility] Work Phone: Thin prep Papanicolaou smear with manual screeningon 07-08-2021 Thin prep Papanicolaou smear with manual screening 32 U/L 15-37 [facility] Work Phone: Thin prep Papanicolaou smear with manual screening 9 5-15 [facility] Work Phone: No Panel Informationon 06-12 Vitamin D 25-Hydroxy 101.7 ng/mL [facility] Work Phone: Comment on above: Vitamin [...] Vitamin D test results. Office Visit: Diabetes [facility] 10-26-2016 Adolescent depression screening assessment Adolescent depression screening assessment Invalid Interpretation Code [facility] Work Phone: Documentation of current medications (procedure) Done Invalid Interpretation Code [facility] Work Phone: Fall risk assessment Fall risk assessment Invali d Interpretation Code [facility] Work Phone: Tobacco smoking status NHIS Never Invalid Interpretation Code [facility] Work Phone: Tobacco use CPHS Former smoker Invalid Interpretation Code [facility] Work Phone: Office Visit: [facility] 11-05-2015 Breast Mammogram screening Normal Bilateral Invalid Interpretation Code [facility] Work Phone: Colonoscopy (procedure) Colonoscopy (procedure) Invalid Interpretation Code [facility] Work Phone: Culture, urine Bacteria identified Cx Nom (U) Negative [facility] Work Phone: Bacteria identified Cx Nom (U) Escherichia coli [facility] Work Phone: Laboratory - Microbiology an d Antimicrobial susceptibility Bacteria identified Cx Nom (Bld) Negative [facility] Work Phone: No Panel Information SARS-CoV-2 & FLU Antigen (Rapid) [facility] Work Phone: Vital Signs Date Time Vital Sign Value Performing Clinician Facility 10-11-2024 07:00-0400 SaO2% (BldA) [Mass fraction] 95 % Dr. Shayna Malhotra MD Work Phone: [facility] 10-11-2024 06:49-0400 Body temperature 97.6 [degF] Dr. Shayna Malhotra MD Work Phone: [facility] 10-11-2024 06:49-0400 Diastolic blood pressure 76 mm[Hg] Dr. Shayna Malhotra MD Work Phone: [facility] 10-11-2024 06:49-0400 Heart rate 106 /min Dr. Shayna Malhotra MD Work Phone: [facility] 10-11-2024 06:49-0400 Respiratory rate 20 /min Dr. Shayna Malhotra MD Work Phone: [facility] 10-11-2024 06:49-0400 Systolic blood pressure 153 mm[Hg] Dr. Shayna Malhotra MD Work Phone: [facility] 10-11-2024 06:00-0400 Body mass index (BMI) [Ratio] 49.6 kg/m2 Dr. Shayna Malhotra MD Work Phone: [facility] 10-11-2024 06:00-0400 Body weight 135.[address] Shayna Malhotra MD Work Phone: [facility] 10-10-2024 14:58-0400 Body height 165.[address] Shayna Malhotra MD Work Phone: [facility] 10-09-2024 20:55-0400 Diastolic blood pressure 57 mm[Hg] Dr. Shayna Malhotra MD Work Phone: [facility] 10-09-2024 20:55-0400 Heart rate 102 /min Dr. Shayna Malhotra MD Work Phone: [facility] 10-09-2024 20:55-0400 Respiratory rate 20 /min Dr. Shayna Malhotra MD Work Phone: [facility] 10-09-2024 20:55-0400 SaO2% (BldA) [Mass fraction] 98 % Dr. Shayna Malhotra MD Work Phone: [facility] 10-09-2024 20:55-0400 Systolic blood pressure 121 mm[Hg] Dr. Shayna Malhotra MD Work Phone: [facility] 10-09-2024 16:55-0400 Body height 165.[address] Shayna Malhotra MD Work Phone: [facility] 10-09-2024 16:55-0400 Body mass index (BMI) [Ratio] 49.1 kg/m2 Dr. Shayna Malhotra MD Work Phone: [facility] 10-09-2024 16:55-0400 Body temperature 97.8 [degF] Dr. Shayna Malhotra MD Work Phone: [facility] 10-09-2024 16:55-0400 Body weight [address] Shayna Malhotra MD Work Phone: [facility] 07-04-2024 13:06-0500 Body mass index (BMI) [Ratio] 49.9 kg/m2 Dr. Shayna Malhotra MD Work Phone: [facility] 07-04-2024 13:06-0500 Body temperature 97.8 [degF] Dr. Shayna Malhotra MD Work Phone: [facility] 07-04-2024 13:06-0500 Body weight 136.[address] Shayna Malhotra MD Work Phone: [facility] 07-04-2024 13:06-0500 Diastolic blood pressure 80 mm[Hg] Dr. Shayna Malhotra MD Work Phone: [facility] 07-04-2024 13:06-0500 Heart rate 107 /min Dr. Shayna Malhotra MD Work Phone: [facility] 07-04-2024 13:06-0500 Respiratory rate 16 /min Dr. Shayna Malhotra MD Work Phone: [facility] 07-04-2024 13:06-0500 SaO2% (BldA) [Mass fraction] 94 % Dr. Shayna Malhotra MD Work Phone: [facility] 07-04-2024 13:06-0500 Systolic blood pressure 142 mm[Hg] Dr. Shayna Malhotra MD Work Phone: [facility] 01-09-2023 19:06-0400 Body temperature 99.5 [degF] Dr. Shayna Malhotra Work Phone: [facility] 01-09-2023 19:06-0400 Heart rate 115 /min Dr. Shayna Malhotra Work Phone: [facility] 01-09-2023 19:06-0400 Respiratory rate 16 /min Dr. Shayna Malhotra Work Phone: [facility] 01-09-2023 19:06-0400 SaO2% (BldA) [Mass fraction] 95 % Dr. Shayna Malhotra Work Phone: [facility] 01-09-2023 17:53-0400 Diastolic blood pressure 89 mm[Hg] Dr. Shayna Malhotra Work Phone: [facility] 01-09-2023 17:53-0400 Systolic blood pressure 166 mm[Hg] Dr. Shayna Malhotra Work Phone: [facility] 01-09-2023 17:15-0400 Body height 165.[address] Shayna Malhotra Work Phone: [facility] 01-09-2023 17:15-0400 Body mass index (BMI) [Ratio] 51 kg/m2 Dr. Shayna Malhotra Work Phone: [facility] 01-09-2023 17:15-0400 Body weight 139.[address] Shayna Malhotra Work Phone: [facility] 11-24-2022 13:42-0400 Body mass index (BMI) [Ratio] 51.4 kg/m2 Dr. Shayna Malhotra Work Phone: [facility] 11-24-2022 13:42-0400 Body temperature 97.9 [degF] Dr. Shayna Malhotra Work Phone: [facility] 11-24-2022 13:42-0400 Body weight 140.[address] Shayna Malhotra Work Phone: [facility] 11-24-2022 13:42-0400 Diastolic blood pressure 67 mm[Hg] Dr. Shayna Malhotra Work Phone: [facility] 11-24-2022 13:42-0400 Heart rate 112 /min Dr. Shayna Malhotra Work Phone: [facility] 11-24-2022 13:42-0400 Respiratory rate 20 /min Dr. Shayna Malhotra Work Phone: [facility] 11-24-2022 13:42-0400 SaO2% (BldA) [Mass fraction] 92 % Dr. Shayna Malhotra Work Phone: [facility] 11-24-2022 13:42-0400 Systolic blood pressure 125 mm[Hg] Dr. Shayna Malhotra Work Phone: [facility] 05-06-2022 16:07-0500 Body height 165.[address] Shayna Malhotra Work Phone: [facility] 05-06-2022 16:07-0500 Body mass index (BMI) [Ratio] 49.4 kg/m2 Dr. Shayna Malhotra Work Phone: [facility] 05-06-2022 16:07-0500 Body temperature 98.6 [degF] Dr. Shayna Malhotra Work Phone: [facility] 05-06-2022 16:07-0500 Body weight 134.[address] Shayna Malhotra Work Phone: [facility] 05-06-2022 16:07-0500 Diastolic blood pressure 91 mm[Hg] Dr. Shayna Malhotra Work Phone: [facility] 05-06-2022 16:07-0500 Heart rate 118 /min Dr. Shayna Malhotra Work Phone: [facility] 05-06-2022 16:07-0500 Respiratory rate 18 /min Dr. Shayna Malhotra Work Phone: [facility] 05-06-2022 16:07-0500 SaO2% (BldA) [Mass fraction] 96 % Dr. Shayna Malhotra Work Phone: [facility] 05-06-2022 16:07-0500 Systolic blood pressure 167 mm[Hg] Dr. Shayna Malhotra Work Phone: [facility] 11-24-2021 16:06-0400 Heart rate 100 /min Dr. Shayna Malhotra Work Phone: [facility] Work Phone: 11-24-2021 16:04-0400 Body temperature 98.4 [degF] Dr. Shayna Malhotra Work Phone: [facility] Work Phone: 11-24-2021 16:04-0400 Diastolic blood pressure 82 mm[Hg] Dr. Shayna Malhotra Work Phone: [facility] Work Phone: 11-24-2021 16:04-0400 Respiratory rate 17 /min Dr. Shayna Malhotra Work Phone: [facility] Work Phone: 11-24-2021 16:04-0400 SaO2% (BldA) [Mass fraction] 95 % Dr. Shayna Malhotra Work Phone: [facility] Work Phone: 11-24-2021 16:04-0400 Systolic blood pressure 147 mm[Hg] Dr. Shayna Malhotra Work Phone: [facility] Work Phone: 11-24-2021 08:43-0400 Body temperature 98 [degF] Dr. Shayna Malhotra Work Phone: [facility] Work Phone: 11-24-2021 08:43-0400 Diastolic blood pressure 61 mm[Hg] Dr. Shayna Malhotra Work Phone: [facility] Work Phone: 11-24-2021 08:43-0400 Heart rate 94 /min Dr. Shayna Malhotra Work Phone: [facility] Work Phone: 11-24-2021 08:43-0400 Respiratory rate 15 /min Dr. Shayna Malhotra Work Phone: [facility] Work Phone: 11-24-2021 08:43-0400 SaO2% (BldA) [Mass fraction] 95 % Dr. Shayna Malhotra Work Phone: [facility] Work Phone: 11-24-2021 08:43-0400 Systolic blood pressure 113 mm[Hg] Dr. Shayna Malhotra Work Phone: [facility] Work Phone: 11-24-2021 06:00-0400 Body weight 141.[address] Shayna Malhotra Work Phone: [facility] Work Phone: 11-23-2021 09:21-0400 Body height 165.[address] Shayna Malhotra Work Phone: [facility] Work Phone: 11-22-2021 17:49-0400 Body height 165.[address] Shayna Malhotra Work Phone: [facility] Work Phone: 11-22-2021 17:49-0400 Body mass index (BMI) [Ratio] 51.5 kg/m2 Dr. Shayna Malhotra Work Phone: [facility] Work Phone: 11-22-2021 17:49-0400 Body weight 140.[address] Shayna Malhotra Work Phone: [facility] Work Phone: 11-22-2021 17:05-0400 Body temperature 98.9 [degF] Dr. Shayna Malhotra Work Phone: [facility] Work Phone: 11-22-2021 17:05-0400 Diastolic blood pressure 78 mm[Hg] Dr. Shayna Malhotra Work Phone: [facility] Work Phone: 11-22-2021 17:05-0400 Heart rate 120 /min Dr. Shayna Malhotra Work Phone: [facility] Work Phone: 11-22-2021 17:05-0400 Respiratory rate 28 /min Dr. Shayna Malhotra Work Phone: [facility] Work Phone: 11-22-2021 17:05-0400 SaO2% (BldA) [Mass fraction] 96 % Dr. Shayna Malhotra Work Phone: [facility] Work Phone: 11-22-2021 17:05-0400 Systolic blood pressure 119 mm[Hg] Dr. Shayna Malhotra Work Phone: [facility] Work Phone: 10-02-2021 12:46-0400 Body height 165.1 cm Jennifer Cuevas MD Work Phone: [facility] 10-02-2021 12:46-0400 Body temperature 97.39 [degF] Jennifer Cuevas MD Work Phone: [facility] 10-02-2021 12:46-0400 Body weight 136.53 kg Jennifer Cuevas MD Work Phone: [facility] 10-02-2021 12:46-0400 Diastolic blood pressure 85 mm[Hg] Jennifer Cuevas MD Work Phone: [facility] 10-02-2021 12:46-0400 Heart rate 103 /min Jennifer Cuevas MD Work Phone: [facility] 10-02-2021 12:46-0400 Respiratory rate 20 /min Jennifer Cuevas MD Work Phone: [facility] 10-02-2021 12:46-0400 SaO2% (BldA) [Mass fraction] 98 % Jennifer Cuevas MD Work Phone: [facility] 10-02-2021 12:46-0400 Systolic blood pressure 152 mm[Hg] Jennifer Cuevas MD Work Phone: [facility] 09-22-2021 09:30-0400 Body temperature 98.4 [degF] Dr. Shayna Malhotra Work Phone: [facility] Work Phone: 09-22-2021 09:30-0400 Diastolic blood pressure 87 mm[Hg] Dr. Shayna Malhotra Work Phone: [facility] Work Phone: 09-22-2021 09:30-0400 Heart rate 85 /min Dr. Shayna Malhotra Work Phone: [facility] Work Phone: 09-22-2021 09:30-0400 Respiratory rate 17 /min Dr. Shayna Malhotra Work Phone: [facility] Work Phone: 09-22-2021 09:30-0400 SaO2% (BldA) [Mass fraction] 94 % Dr. Shayna Malhotra Work Phone: [facility] Work Phone: 09-22-2021 09:30-0400 Systolic blood pressure 151 mm[Hg] Dr. Shayna Malhotra Work Phone: [facility] Work Phone: 09-20-2021 13:57-0400 Body height 166.[address] Shayna Malhotra Work Phone: [facility] Work Phone: 09-20-2021 13:57-0400 Body weight 137.[address] Shayna Malhotra Work Phone: [facility] Work Phone: 09-20-2021 12:38-0400 Body mass index (BMI) [Ratio] 49.6 kg/m2 Dr. Shayna Malhotra Work Phone: [facility] Work Phone: 09-20-2021 12:06-0400 Body temperature 98 [degF] Dr. Shayna Malhotra Work Phone: [facility] Work Phone: 09-20-2021 12:06-0400 Diastolic blood pressure 71 mm[Hg] Dr. Shayna Malhotra Work Phone: [facility] Work Phone: 09-20-2021 12:06-0400 Heart rate 101 /min Dr. Shayna Malhotra Work Phone: [facility] Work Phone: 09-20-2021 12:06-0400 Respiratory rate 16 /min Dr. Shayna Malhotra Work Phone: [facility] Work Phone: 09-20-2021 12:06-0400 SaO2% (BldA) [Mass fraction] 97 % Dr. Shayna Malhotra Work Phone: [facility] Work Phone: 09-20-2021 12:06-0400 Systolic blood pressure 163 mm[Hg] Dr. Shayna Malhotra Work Phone: [facility] Work Phone: 09-20-2021 07:17-0400 Body height 165.[address] Shayna Malhotra Work Phone: [facility] Work Phone: 09-20-2021 07:17-0400 Body mass index (BMI) [Ratio] 52.5 kg/m2 Dr. Shayna Malhotra Work Phone: [facility] Work Phone: 09-20-2021 07:17-0400 Body weight 143.[address] Shayna Malhotra Work Phone: [facility] Work Phone: 09-01-2021 15:00-0400 Body height 165.1 cm Pst 1 [facility] 09-01-2021 15:00-0400 Body temperature 97.5 [degF] Pst 1 [facility] 09-01-2021 15:00-0400 Body weight 128.82 kg Pst 1 [facility] 09-01-2021 15:00-0400 Diastolic blood pressure 71 mm[Hg] Pst 1 [facility] 09-01-2021 15:00-0400 Heart rate 97 /min Pst 1 [facility] 09-01-2021 15:00-0400 Respiratory rate 18 /min Pst 1 [facility] 09-01-2021 15:00-0400 SaO2% (BldA) [Mass fraction] 97 % Pst 1 [facility] 09-01-2021 15:00-0400 Systolic blood pressure 127 mm[Hg] Pst 1 [facility] 08-11-2021 09:26-0500 Body mass index (BMI) [Ratio] 50.9 kg/m2 Dr. Shayna Malhotra Work Phone: [facility] Work Phone: 08-11-2021 09:26-0500 Body temperature 98.2 [degF] Dr. Shayna Malhotra Work Phone: [facility] Work Phone: 08-11-2021 09:26-0500 Body weight 138.[address] Shayna Malhotra Work Phone: [facility] Work Phone: 08-11-2021 09:26-0500 Diastolic blood pressure 83 mm[Hg] Dr. Shayna Malhotra Work Phone: [facility] Work Phone: 08-11-2021 09:26-0500 Heart rate 114 /min Dr. Shayna Malhotra Work Phone: [facility] Work Phone: 08-11-2021 09:26-0500 Respiratory rate 16 /min Dr. Shayna Malhotra Work Phone: [facility] Work Phone: 08-11-2021 09:26-0500 SaO2% (BldA) [Mass fraction] 96 % Dr. Shayna Malhotra Work Phone: [facility] Work Phone: 08-11-2021 09:26-0500 Systolic blood pressure 151 mm[Hg] Dr. Shayna Malhotra Work Phone: [facility] Work Phone: 08-11-2021 08:26-0500 Body mass index (BMI) [Ratio] 50.9 kg/m2 Dr. Shayna Malhotra Work Phone: [facility] Work Phone: 08-11-2021 08:26-0500 Body temperature 98.2 [degF] Dr. Shayna Malhotra Work Phone: [facility] Work Phone: 08-11-2021 08:26-0500 Body weight 138.[address] Shayna Malhotra Work Phone: [facility] Work Phone: 08-11-2021 08:26-0500 Diastolic blood pressure 83 mm[Hg] Dr. Shayna Malhotra Work Phone: [facility] Work Phone: 08-11-2021 08:26-0500 Heart rate 114 /min Dr. Shayna Malhotra Work Phone: [facility] Work Phone: 08-11-2021 08:26-0500 Respiratory rate 16 /min Dr. Shayna Malhotra Work Phone: [facility] Work Phone: 08-11-2021 08:26-0500 SaO2% (BldA) [Mass fraction] 96 % Dr. Shayna Malhotra Work Phone: [facility] Work Phone: 08-11-2021 08:26-0500 Systolic blood pressure 151 mm[Hg] Dr. Shayna Malhotra Work Phone: [facility] Work Phone: 07-30-2021 14:36-0500 Body mass index (BMI) [Ratio] 50.8 kg/m2 Dr. Shayna Malhotra Work Phone: [facility] Work Phone: 07-30-2021 14:36-0500 Body temperature 98.6 [degF] Dr. Shayna Malhotra Work Phone: [facility] Work Phone: 07-30-2021 14:36-0500 Body weight 138.[address] Shayna Malhotra Work Phone: [facility] Work Phone: 07-30-2021 14:36-0500 Heart rate 106 /min Dr. Shayna Malhotra Work Phone: [facility] Work Phone: 07-30-2021 14:36-0500 Respiratory rate 15 /min Dr. Shayna Malhotra Work Phone: [facility] Work Phone: 07-30-2021 13:36-0500 Body mass index (BMI) [Ratio] 50.8 kg/m2 Dr. Shayna Malhotra Work Phone: [facility] Work Phone: 07-30-2021 13:36-0500 Body temperature 98.6 [degF] Dr. Shayna Malhotra Work Phone: [facility] Work Phone: 07-30-2021 13:36-0500 Body weight 138.[address] Shayna Malhotra Work Phone: [facility] Work Phone: 07-30-2021 13:36-0500 Heart rate 106 /min Dr. Shayna Malhotra Work Phone: [facility] Work Phone: 07-30-2021 13:36-0500 Respiratory rate 15 /min Dr. Shayna Malhotra Work Phone: [facility] Work Phone: 07-26-2021 12:28-0500 Diastolic blood pressure 72 mm[Hg] Dr. Shayna Malhotra Work Phone: [facility] Work Phone: 07-26-2021 12:28-0500 Heart rate 98 /min Dr. Shayna Malhotra Work Phone: [facility] Work Phone: 07-26-2021 12:28-0500 Respiratory rate 23 /min Dr. Shayna Malhotra Work Phone: [facility] Work Phone: 07-26-2021 12:28-0500 SaO2% (BldA) [Mass fraction] 99 % Dr. Shayna Malhotra Work Phone: [facility] Work Phone: 07-26-2021 12:28-0500 Systolic blood pressure 140 mm[Hg] Dr. Shayna Malhotra Work Phone: [facility] Work Phone: 07-26-2021 11:28-0500 Diastolic blood pressure 72 mm[Hg] Dr. Shayna Malhotra Work Phone: [facility] Work Phone: 07-26-2021 11:28-0500 Heart rate 98 /min Dr. Shayna Malhotra Work Phone: [facility] Work Phone: 07-26-2021 11:28-0500 Respiratory rate 23 /min Dr. Shayna Malhotra Work Phone: [facility] Work Phone: 07-26-2021 11:28-0500 SaO2% (BldA) [Mass fraction] 99 % Dr. Shayna Malhotra Work Phone: [facility] Work Phone: 07-26-2021 11:28-0500 Systolic blood pressure 140 mm[Hg] Dr. Shayna Malhotra Work Phone: [facility] Work Phone: 07-26-2021 09:16-0500 Body mass index (BMI) [Ratio] 52.2 kg/m2 Dr. Shayna Malhotra Work Phone: [facility] Work Phone: 07-26-2021 09:16-0500 Body temperature 97.2 [degF] Dr. Shayna Malhotra Work Phone: [facility] Work Phone: 07-26-2021 09:16-0500 Body weight 142.[address] Shayna Malhotra Work Phone: [facility] Work Phone: 07-26-2021 08:16-0500 Body mass index (BMI) [Ratio] 52.2 kg/m2 Dr. Shayna Malhotra Work Phone: [facility] Work Phone: 07-26-2021 08:16-0500 Body temperature 97.2 [degF] Dr. Shayna Malhotra Work Phone: [facility] Work Phone: 07-26-2021 08:16-0500 Body weight 142.[address] Shayna Malhotra Work Phone: [facility] Work Phone: 10-26-2016 15:36-0400 BMI (Body Mass Index) 41.6 kg/m2 Sena Cox NP [facility] Work Phone: 10-26-2016 15:36-0400 BP Diastolic 97 mm[Hg] Sena Cox NP [facility] Work Phone: 10-26-2016 15:36-0400 BP Systolic 155 mm[Hg] Sena Cox NP [facility] Work Phone: 10-26-2016 15:36-0400 BSA (Body Surface Area) 2.12 m2 Sena Cox NP [facility] Work Phone: 10-26-2016 15:36-0400 Height 162.56 cm Sena Cox NP [facility] Work Phone: 10-26-2016 15:36-0400 Pulse (Heart Rate) 101 /min Sena Cox NP [facility] Work Phone: 10-26-2016 15:36-0400 Pulse Oximetry 97 % Sena Cox NP [facility] Work Phone: 10-26-2016 15:36-0400 Respiratory Rate 16 /min [facility] Work Phone: 10-26-2016 15:36-0400 Weight 109.95 kg Sen[facility] Work Phone: Encounters Encounter Date Encounter Type Care Provider Facility Start: 04-01-2025 ambulatory Shaynadesi Malhotra Facility :[facility] Start: 03-20-20[facility] Start: 01-21-2025 ambulatory Malathi ROSA Facili ty:[facility] Start: 01-21-[address] Malathi Tomas MD -[facility] Work Phone: Start: 12-04-2024 End: 12-04-[address] Shayna Malhotra MD Work Phone: -[facility] Start: 12-04-2024 End: 12-04-[address] Malathi Tomas MD -[facility] Start: 12-04-2024 End: 12-04-2024 ambulatory Malathi ROSA Facility:[facility] Start: 11-26-2024 ambulatory Shayna Marya Facility :[facility] Start: 11-26-[address] Malathi Tomas MD -[facility] Start: 11-07-2024 [facility] Start: 11-01-2024 [facility] Start: 10-30-2024 ambulatory Shaynadesi Malhotra Facility :[facility] Start: 10-25-2024 ambulatory Shayna Marya Facility :[facility] Start: 10-11-2024 End: 10-11-2024 ambulatory Shea Lele Facility:[facility] Start: 10-10-2024 Non-patient / Non-visit Dr. Tyrell Page MD -[facility] Work Phone: Start: 10-09-2024 ambulatory Missael Whitfield ty:[facility] Start: 10-09-2024 End: 10-11-2024 Evaluation and management of inpatient Dr. Missael Hernandez DO -[facility] Work Phone: Start: 10-09-2024 Registered Referred Shayna Resendez [facility] Work Phone: Start: 10-08-2024 End: 10-09-2024 ambulatory Shayna ROSA Facility:[facility] Start: 07-09-2024 ambulatory Shayna ROSA Faci lity:[facility] Start: 07-09-2024 Registered Referred Shayna Resendez [facility] Work Phone: Start: 07-04-2024 End: 07-04-[address] Shayna Malhotra MD -[facility] Work Phone: Start: 07-04-2024 End: 07-04-2024 ambulatory Shayna Malhotra Facility:[facility] Start: 06-22-2024 ambulatory [facility] Marya Facility :[facility] Start: 05-28-2024 End: 05-28-2024 ambulatory Shaynadesi Malhotra Facility:[facility] Start: 07-08-2023 End: 07-08-2023 ambulatory [facility] Work Phone: Start: 07-08-2023 End: 07-08-2023 Departed Referred [facility] Work Phone: Start: 04-08-2023 End: 04-08-2023 Departed Referred [facility] Work Phone: Start: 01-09-2023 End: 01-09-2023 Emergency department patient visit Dr. Shayna Malhotra Work Phone: [facility]Emergency Department Work Phone: Start: 11-24-2022 End: 11-24-[address] Shayna Malhotra Work Phone: [facility] Work Phone: Start: 10-13-2022 End: 10-13-[address] Shayna Malhotra Work Phone: [facility] Work Phone: Start: 08-12-2022 End: 08-12-[address] Shayna Malhotra Work Phone: [facility] Work Phone: Start: 08-12-2022 End: 08-12-[address] Shayna Malhotra Work Phone: [facility] Start: 07-13-2022 End: 07-13-[address] Shayna Malhotra Work Phone: [facility] Work Phone: Start: 07-13-2022 End: 07-13-[address] Shayna aMlhotra Work Phone: [facility] Start: 06-08-2022 End: 06-08-[address] Shayna Malhotra Work Phone: [facility] Work Phone: Start: 06-08-2022 End: 06-08-[address] Shayna Malhotra Work Phone: [facility] Start: 05-06-2022 End: 05-06-[address] Shayna Malhotra Work Phone: [facility] Start: 04-13-2022 End: 04-13-2022 ambulatory [facility] Work Phone: Start: 04-13-2022 End: 04-13-2022 Departed Referred [facility] Start: 01-01-2022 End: 01-01-[address] Shayna Malhotra Work Phone: [place] [phone] Start: 12-11-[address] Shayna Malhotra Work Phone: [facility] [phone] Start: 12-01-[address] Shayna Malhotra Work Phone: [facility] [phone] Start: 11-27-[address] Shayna Malhotra Work Phone: [facility] 100/200 Start: 11-24-2021 Non-patient / Non-visit Dr. Maryanne Malhotra Work Phone: [facility] Start: 11-23-2021 Non-patient / Non-visit Dr. Maryanne Malhotra Work Phone: [facility] Start: 11-23-2021 End: 11-24-2021 Non-patient / Non-visit Dr. Shayna Malhotra Work Phone: [facility] Start: 11-22-2021 Non-patient / Non-visit Dr. Maryanne Malhotra Work Phone: [facility] Start: 11-22-2021 End: 11-24-2021 Evaluation and management of inpatient Dr. Shayna Malhotra Work Phone: [facility]-Intensive Care Unit Start: 10-27-2021 End: 10-27-[address] Shayna Malhotra Work Phone: [facility] Start: 10-13-2021 End: 10-13-[address] Shayna Malhotra Work Phone: [facility] Start: 10-13-[address] Shayna Malhotra Work Phone: [facility] Start: 10-02-2021 End: 10-02-2021 ambulatory Jennifer Cuevas MD Work Phone: [facility] Comment on above: Endometrial cancer ( HCC) (Primary Dx) Start: 10-02-2021 End: 10-02-2021 Patient encounter procedure Jennifer Cuevas MD Work Phone: [facility] Start: 09-22-2021 Non-patient / Non-visit Dr. Maryanne Malhotra Work Phone: [facility] Start: 09-21-2021 Telephone encounter Jennifer prasad MD Work Phone: [facility] Comment on above: Appointment Cancelle d Start: 09-21-2021 Non-patient / Non-visit Dr. Maryanne Malhotra Work Phone: [facility] Start: 09-20-2021 Non-patient / Non-visit Dr. Maryanne Malhotra Work Phone: [facility] Start: 09-20-2021 End: 09-22-2021 Evaluation and management of inpatient Dr. Shayna Malhotra Work Phone: [facility] 3 Start: 09-10-2021 Telephone encounter Taniya Balderas APRN.CNP Work Phone: [facility] Comment on above: Results Start: 09-10-2021 End: 09-10-[address] Shayna Malhotra Work Phone: [facility] Start: 09-10-[address] Shayna Malhotra Work Phone: [facility] Start: 09-09-2021 Telephone encounter Jennifer prasad MD Work Phone: [facility] Comment on above: Patient Update Start: 09-01-2021 End: 09-01-2021 Admission to establishment [facility] Start: 09-01-2021 End: 09-01-2021 ambulatory Pst 1 [...] encounter procedure Dr. [facility] Start: 08-07-2021 End: 08-07-[address] [facility] Malhot[facility] Start: 07-30-[address] Shayna Malhotra Work Phone: [facility] Start: 07-30-2021 End: 07-30-[address] Shayna Malhotra Work Phone: [facility] Start: 07-26-2021 End: 07-26-2021 Emergency department patient visit Dr. Shayna Malhotra Work Phone: [facility]Emergency Department Start: 07-14-[address] Shayna Malhotra Work Phone: [facility] Start: 07-08-[address] Shayna Malhotra Work Phone: [facility] Start: 06-12-[address] Shayna Malhotra Work Phone: [facility] Procedures Date Procedure Procedure [...] Speci men Type: BLOOD SPECIMEN Ordering Facility: [facility] Address: [address] [place] [address] Performed By: #### T [id number] #### [facility] CLIA [id number] [address] STATES [facility] Start: 08-11-2021 Plain chest X-ray Dr. Jean [...] Activity Detail Author Start: 10-11-2024 Patient discharge [facility] Start: 10-10-2024 [facility] Start: 10-10-2024 Consultation [facility] Start: 10-10-2024 Patient referral to dietitian [facility] Start: 10-09-2024 Following clinical pathway protocol [facility] Start: 10-09-2024 Assessment of risk o f venous thromboembolism [facility] Start: 10-09-2024 Care regimes management [facility] Start: 10-09-2024 Incentive spirometry [facility] Start: 10-09-2024 Insertion of cathete r into peripheral vein [facility] Start: 10-09-2024 Measuring intake and output [facility] Start: 10-09-2024 Notification of physician [facility] Start: 10-09-2024 Oxygen therapy [facility] Start: 10-09-2024 Providing care accor ding to standard [facility] Start: 10-09-2024 Provision of activit y privileges [facility] Start: 10-09-2024 Referral to occupati onal therapist [facility] Start: 10-09-2024 Referral to service [facility] Start: 10-09-2024 Seizure precautions [facility] Start: 10-09-2024 End: 10-09-2024 [facility] Start: 10-09-2024 MR Lower extremity W O contrast [facility] Start: 10-09-2024 MRI of lower extremity Extremi ty Lower without Contra [facility] Start: 10-09-2024 Verification routine [facility] Start: 10-09-2024 Admission procedure [facility] Start: 10-09-2024 Hospital admission, emergency, from emergency room, medical nature [facility] Start: 10-09-2024 End: 10-10-2024 [facility] Start: 10-09-2024 Thyroid stimulating hormone measurement [facility] Start: 10-09-2024 Consultation [facility] Start: 10-09-2024 Bacteria identified in Urine by Culture Urine Culture [facility] Start: 10-09-2024 Urine culture [facility] Start: 10-09-2024 Consultation [facility] Start: 10-09-2024 Patient referral to dietitian [facility] Start: 09-07-2024 [facility]ABET[facility] SCRE[facility] Start: 07-04-2024 Patient referral [facility] Work Phone: Start: 11-24-2022 Patient referral [facility] Work Phone: Start: 05-06-2022 Patient referral [facility] Work Phone: Start: 02-04-2022 Influenza vaccination INFLUENZ A (Season Ended) [facility] Start: 11-25-2021 [facility] Work Phone: Start: 11-24-2021 Patient discharge [facility] Work Phone: Start: 11-22-2021 Troponin I measurement [facility] Work Phone: Start: 11-22-2021 Verification routine [facility] Work Phone: Start: 11-22-2021 Patient referral to dietitian [facility] Work Phone: Start: 11-22-2021 Following clinical pathway protocol [facility] Work Phone: Start: 11-22-2021 Assessment of risk o f venous thromboembolism [facility] Work Phone: Start: 11-22-2021 Care regimes management [facility] Work Phone: Start: 11-22-2021 Catheterization of vein [facility] Work Phone: Start: 11-22-2021 Insertion of cathete r into peripheral vein [facility] Work Phone: Start: 11-22-2021 Measuring intake and output [facility] Work Phone: Start: 11-22-2021 Providing care accor ding to standard [facility] Work Phone: Start: 11-22-2021 Provision of activit y privileges [facility] Work Phone: Start: 11-22-2021 Referral to occupati onal therapist [facility] Work Phone: Start: 11-22-2021 Referral to service [facility] Work Phone: Start: 11-22-2021 [facility] Work Phone: Start: 11-22-2021 Viral nucleic acid assay [facility] Work Phone: Start: 11-22-2021 Admission procedure [facility] Work Phone: Start: 11-22-2021 [facility] Work Phone: Start: 11-22-2021 End: 11-23-2021 [facility] Work Phone: Start: 11-22-2021 End: 11-22-2021 Blood culture [facility] Work Phone: Start: 09-22-2021 Patient discharge [facility] Work Phone: Start: 09-20-2021 End: 09-21-2021 [facility] Work Phone: Start: 09-20-2021 Following clinical pathway protocol [facility] Work Phone: Start: 09-20-2021 Assessment of risk o f venous thromboembolism [facility] Work Phone: Start: 09-20-2021 Care regimes management [facility] Work Phone: Start: 09-20-2021 Elevation of affecte d extremity [facility] Work Phone: Start: 09-20-2021 Insertion of cathete r into peripheral vein [facility] Work Phone: Start: 09-20-2021 Notification of physician [facility] Work Phone: Start: 09-20-2021 Providing care accor ding to standard [facility] Work Phone: Start: 09-20-2021 Provision of activit y privileges [facility] Work Phone: Start: 09-20-2021 Referral to occupati onal therapist [facility] Work Phone: Start: 09-20-2021 Referral to service [facility] Work Phone: Start: 09-20-2021 Self-administration of medication [facility] Work Phone: Start: 09-20-2021 Admission procedure [facility] Work Phone: Start: 09-20-2021 Patient referral to dietitian [facility] Work Phone: Start: 09-01-2021 End: 11-01-2021 CBC panel - Blood by Automated count [facility] Work Phone: Comment on above: Expected: 09/01/2021 , Expires: 11/01/2021 Start: 09-01-2021 End: 11-01-2021 CONFIRM BLOOD TYPE [facility] Work Phone: Comment on above: Expected: 09/01/2021 , Expires: 11/01/2021 Start: 09-01-2021 End: 11-01-2021 TYPE AND SCREEN,30 DAY [facility] Work Phone: Comment on above: Expected: 09/01/2021 , Expires: 11/01/2021 Start: 07-26-2021 Referral to oncologist [facility] Work Phone: Start: 06-06-2021 ADVANCE DIRECTIVE DISCUSSION ADVANCE DIRECTIVE DISCUSSION [facility] Start: 02-09-2021 LIPID SCREEN LIPID SCREEN [facility] Start: 02-04-2021 Influenza vaccination INFLUENZA (#1) [facility] Start: 03-01-2019 DIABETES SCREEN DIABETES SCREEN [facility] Start: 2017 BONE DENSITY BONE DENSITY [facility] Start: 2017 PNEUMOVAX AGE 65 AND OVER WITH 5YR LOOKBACK (#1) PNEUMOVAX AGE 65 AND OVER WITH 5YR LOOKBACK (#1) [facility] Start: 02-09-2017 Adult depression screening assessment DEPRESSION SCREENING [facility] Start: 02-09-2017 Mammography MAMMOGRAM [facility] Start: 12-09-2016 End: 12-09-2016 Appointment [facility] Work Phone: Start: 10-26-2016 End: 10-26-2016 Appointment Appointment [facility] Work Phone: Start: 10-26-2016 End: 10-26-2016 Appointment Appointment [facility] Work Phone: Start: 10-26-2016 End: 11-01-2016 *CMP Complete Metabolic Panel *CMP Complete Metabolic Panel [facility] Work Phone: Start: 10-26-2016 End: 11-01-2016 *Microalbumin, Creatine Ratio, rand urine *Microalbumin, Creatine Ratio, rand urine [facility] Work Phone: Start: 10-26-2016 End: 11-01-2016 HbA1c *HgA1C [facility] Work Phone: Start: 10-26-2016 End: 11-01-2016 Lipid panel [AGGREGATE] *Lipid Profile [facility] Work Phone: Start: 09-05-2011 PNEUMOCOCCAL: 65+ (2 - PCV) PNEUMOCOCCAL: 65+ (2 - PCV) [facility] Start: 2002 SHINGRIX VACCINE (1 of 2) SHINGRIX VACCINE (1 of 2) [facility] Start: 1997 COLOGUARD (FIT-DNA) COLOGUARD (FIT-D NA) [facility] Start: 1997 Colonoscopy COLONOSCOPY [facility] Start: 1997 COLORECTAL CANCER SCREENING COLORECTAL CANCER SCREENING [facility] Start: [address] COLONOGRAPHY [facility] Start: 1997 FECAL OCCULT BLOOD FECAL OCCULT BLOO D [facility] Start: 1997 SIGMOIDOSCOPY SIGMOIDOSCOPY [facility] Start: 12-28-1971 SHINGRIX VACCINE (1 of 2) SHINGRIX VACCINE (1 of 2) [facility] Start: 12-28-1971 Urine microalbumin profile DTAP,TDAP,TD (1 - Tdap) [facility] Start: 1957 COVID-19 VACCINE (#1) COVID-19 VACCI NE (#1) [facility] Start: 1957 COVID-19 VACCINE (1) COVID-19 VACCIN E (1) [facility] Amphetamines [Presen ce] in Urine by Screen method >1000 ng/mL [facility] Bacteria identified in Blood by Culture Blood Culture [facility] Work Phone: Bacteria identified in Urine by Culture Urine Culture [facility] Work Phone: Benzodiazepine measurement, urine [facility] Blood culture [facility] Work Phone: C reactive protein [Mass/volume] in Serum or Plasma [facility] Cancer Ag 125 [Units/volume] in Serum or Plasma [facility] Work Phone: Cocaine measurement, urine [facility] Erythrocyte sedimentation rate [facility] Ethanol [Mass/volume ] in Serum or Plasma [facility] fentaNYL [Presence] in Urine by Screen method [facility] Folate [Moles/volume ] in Serum or Plasma [facility] Hemoglobin A1c/Hemoglobin.total in Blood [facility] Magnesium measurement [facility] Methadone measuremen t, urine [facility] Patient Education [facility] Work Phone: Patient referral [facility] Work Phone: Phencyclidine [Prese nce] in Urine [facility] Troponin I measurement [facility] Work Phone: Urine cannabinoid measurement [facility] Urine culture [facility] Urine opiate measurement [facility] Immunizations Immunization Date Immunization Notes Care Provider Arlin pro 03-30-2016 influenza, injectabl e, quadrivalent, preservative free [facility] 03-30-2016 influenza, seasonal, injectable Dr. Shayna Malhotra Work Phone: [facility] 10-31-2012 influenza, injectabl e, quadrivalent, preservative free [facility] 10-31-2012 influenza, seasonal, injectable Dr. Shayna Malhotra Work Phone: [facility] 06-06-2012 pneumococcal polysaccharide vaccine, [address] Shayna Malhotra Work Phone: [facility] 09-04-2010 pneumococcal polysaccharide vaccine, 23 valent [address] 1 [facility] Work Phone: Payers Date Payer Category Payer Self-pay [id number] 2021 Medicare [id number] 1.2.8 [id number] 2016 Unknown [id number] 2016 Unknown [id number] Unknown [id number] 2.16.8 40.1.150971.3.579.2.462 Unknown [id number] 2.16.8 40.1.506284.3.579.2.462 Unknown [id number] 2.16.8 40.1.486199.3.579.2.462 Unknown [id number] 2.16.8 40.1.327798.3.579.2.462 Unknown [id number] 2.16.8 40.1.407456.3.579.2.462 Unknown [id number] 2.16.8 40.1.710299.3.579.2.462 Unknown [id number] 2.16.8 40.1.098195.3.579.2.462 Unknown [id number] 2.16.8 40.1.521133.3.579.2.462 Unknown [id number] 2.16.8 40.1.397998.3.579.2.462 Unknown [id number] 2.16.8 40.1.727135.3.579.2.462 Unknown [id number] 2.16.8 40.1.627461.3.579.2.462 Unknown [id number] 2.16.8 40.1.678831.3.579.2.462 Unknown [id number] 2.16.8 40.1.876427.3.579.2.462 Unknown [id number] 2.16.8 40.1.590956.3.579.2.462 Unknown [id number] 2.16.8 40.1.029484.3.579.2.462 Unknown [id number] 2.16.8 40.1.963753.3.579.2.462 Unknown [id number] 2.16.8 40.1.624751.3.579.2.462 Unknown [id number] 2.16.8 40.1.205985.3.579.2.462 Unknown [id number] 2.16.8 40.1.074824.3.579.2.462 Unknown [id number] 2.16.8 40.1.715447.3.579.2.462 Social History Date Type Detail Facility Start: 07-29-2021 End: 10-09-2024 Tobacco smoking status NHIS Ex-smoker [facility] History of tobacco use Cigarette Smoker [facility] Start: 07-29-2021 Cigarettes smoked current (pack per day) - Reported 0.5 [facility] Start: 07-29-2021 Tobacco use and exposure Smokeless tobacco non-user [facility] Start: 09-01-2021 End: 10-02-2021 Alcohol intake Current non-drinker of alcohol (finding) [facility] Start: 1950 Sex Assigned At Not on file [facility] Start: 08-22-2021 End: 10-02-2021 Exposure to SARS-CoV-2 (event) Not sure [facility] Start: 09-20-2021 End: 01-09-2023 Tobacco smoking status NDIS Unknown if ever smoked [facility] Start: 08-02-2017 None [facility] Start: 08-02-2017 Alone [facility] Start: 08-02-2017 Non-smoker [facility] Start: 1950 Sex Assigned At Female [facility] Start: 10-09-2024 Sex Female (finding) [facility] Sex Female [facility] Medical Equipment Procedure Code Equipment Code [...] Activity Abili ty With Assist of 2 [facility] Work Phone: 10-10-2024 Functional status Active Range of Motion [facility] Work Phone: 11-24-2021 Functional status Ambulates;Chair [facility] Work Phone: 09-22-2021 Functional status Ambulates [facility] Work Phone: 09-22-2021 Functional status Ambulates [facility] Work Phone: 09-21-2021 Functional status Tolerates Activity Well [facility] Work Phone: Mental Status Date Assessment Result Facility 10-11-2024 Cognitive function Voice/Name [facility] Work Phone: 10-10-2024 Cognitive function Cooperative;Anxious;Ta lkative [facility] Work Phone: 11-24-2021 Cognitive function Voice/Name [facility] Work Phone: 09-22-2021 Cognitive function Voice/Name [facility] Work Phone: 09-20-2021 Cognitive function Level Of Cons ciousness Awake;Alert;Appropriate;Follow s Commands;Drowsy [facility] Work Phone: Clinical Notes 07-29-2021 to 10-11-2024 Note Date & Type Note Facility 10-11-2024 Note [facility] Medical Records Department [address] [place] [address] Discharge Summary 10/11/24 1135 MR#: [id number] Acct: [id number] Name: VIDA NINA Rep #: [id number] : 1950 73 From: Tyrell Page MD PCP: Dr. Shayna Malhotra MD Status:DIS IN Location: [facility] [id number] Providers Date of Admission: 10/09/24 Date of [...] status: with other specified complication Diabetes mellitus superintendent container terminal insulin use: with mcfp use Qualified Code(s): E11.69 - Type 2 diabetes mellitus with other specified complication; Z79.4 - [facility] (current) use of insulin Plan 73-year-old female [...] edema. No soft tissue gas. Will consult warranty clerk for further opinion. PT and OT and [...] 72.1 H, Lymph % (Auto) 16.3 L, Hopkins % (Auto) 8.3, Eos % (Auto) 2.5, Baso % (more content not included)... [facility] 10-10-2024 Progress note Note Date/Time October 10, 2024 4:49pm [facility] Medical Records Department [address] [place] [address] Progress Note - Hospitalist 10/10/24 0739 MR#: [id number] Acct: [id number] Name: VIDA NINA Rep #:[id number] : 1950 73 From: Tyrell Resendez PCP: Dr. Shayna Malhotra MD Status:ADM IN [id number] Reason for Visit Reason for Visit: Diagnoses Type 2 diabetes mellitus with other specified complication (10/09/24) Morbid (severe) obesity due to excess calories (10/09/24) Bipolar disorder, unspecified (10/09/24) Neuralgia and neuritis, unspecified (10/09/24) Acute cystitis with hematuria (10/09/24) Very low level of personal hygiene (10/09/24) Body mass index [BMI] 45.0-49.9, adult (10/09/24) Other specified health status (10/09/24) intermediate card tender (current) use of insulin (10/09/24) Objective Data [...] 72.1 H, Lymph % (Auto) 16.3 L, Hopkins % (Auto) 8.3, Eos % (Auto) 2.5, [...] Clarity Cloudy, Urine pH 5.0, Ur Specific Fisher 1.020, Urine Protein 30 H, Urine Glucose [...] % (Auto) 65.4, Lymph % (Auto) 19.6, Hopkins % (Auto) 9.1, Eos % (Auto) 5.1 [...] arthritic changes. Soft tissue swelling. Reading Location: [facility] Lower Extremity CT 10/09/24 22:15 IMPRESSION: Lateral [...] Hernandez at 2:20 a.m. 10/10/2024 Reading Location: [facility] Physical Exam Narrative [...] status: with other specified complication Diabetes mellitus mcfp insulin use: with superintendent container terminal use Qualified Code(s): E11.69 - Type 2 diabetes mellitus with other specified complication; Z79.4 - [facility] (current) use of insulin PLAN: Plan 73-year-old [...] edema. No soft tissue gas. Will consult warranty clerk for further opinion. PT and OT and [...] 72.1 H, Lymph % (Auto) 16.3 L, Hopkins % (Auto) 8.3, Eos % (Auto) 2.5, [...] Clarity Cloudy, Urine pH 5.0, Ur Specific Fisher 1.020, Urine Protein 30 H, Urine Glucose [...] % (Auto) 65.4, Lymph % (Auto) 19.6, Hopkins % (Auto) 9.1, Eos % (Auto) 5.1 [...] 165 H Charges/Coding Visit Charges Inpatient E&M: 80950 Subs Hosp L2 10/10/24 1530 <Electronically signed [...] Cosigner Signature (if applicable): cc: ~* Signed [facility] Work Phone: 1(255) 595-734705-07-[address] [facility] Medical Records Department [address] [place] [address] Progress Note - Hospitalist 10/10/24 0739 MR#: [id number] Acct: [id number] Name: VIDA NINA Rep #:[id number] : 1950 73 From: Tyrell Resendez PCP: Dr. Shayna Malhotra MD Status:ADM IN Location: [place] [address] Reason for Visit Reason for Visit: Diagnoses Type 2 diabetes mellitus with other specified complication (10/09/24) Morbid (severe) obesity due to excess calories (10/09/24) Bipolar disorder, unspecified (10/09/24) Neuralgia and neuritis, unspecified (10/09/24) Acute cystitis with hematuria (10/09/24) Very low level of personal hygiene (10/09/24) Body mass index [BMI] 45.0-49.9, adult (10/09/24) Other specified health status (10/09/24) [facility] (current) use of insulin (10/09/24) Objective Data [...] 72.1 H, Lymph % (Auto) 16.3 L, Hopkins % (Auto) 8.3, Eos % (Auto) 2.5, [...] Clarity Cloudy, Urine pH 5.0, Ur Specific Fisher 1.020, Urine Protein 30 H, Urine Glucose [...] % (Auto) 65.4, Lymph % (Auto) 19.6, Hopkins % (Auto) 9.1, Eos % (Auto) 5.1 [...] arthritic changes. Soft tissue swelling. Reading Location: [facility] Lower Extremity CT 10/09/24 22:15 IMPRESSION: Lateral [...] Hernandez at 2:20 a.m. 10/10/2024 Reading Location: [facility] Physical Exam Narrative [...] status: with other specified complication Diabetes mellitus mcfp insulin use: with mcfp use Qualified Code(s): E11.69 - Type 2 diabetes mellitus with other specified complication; Z79.4 - [facility] (current) use of insulin PLAN: Plan 73-year-old [...] edema. No soft tissue gas. Will consult warranty clerk for further opinion. PT and OT and [...] 72.1 H, Lymph % (Auto) 16.3 L, Hopkins % (Auto) 8.3, Eos % (Auto) 2.5, [...] Clarity Cloudy, Urine pH 5.0, Ur Specific Fisher 1.020, Urine Protein 30 H, Urine Glucose [...] % (Auto) 65.4, Lymph % (Auto) 19.6, Hopkins % (Auto) 9.1, Eos % (Auto) 5.1 [...] 165 H Charges/Coding Visit Charges Inpatient E&M: 49442 Subs Hosp L2 10/10/24 1530 Cosigner Signature [...] Cosigner Signature (if applicable): cc: ~* Signed [facility]05-07-2025 History and physical note Author Missael Lomeli [facility] Note Date/Time October 10, 2024 6:53am [facility] Medical Records Department [address] [place] [address] H&P Exam - Hospitalist 10/09/242118 MR#: [id number] Acct: [id number] Name: VIDA NINA Rep #:[id number] : 1950 73 From: Missael Joiner DO PCP: Dr. Shayna Malhotra MD Status:ADM IN [id number] HPI - General General Date of Admission: [...] is currently residing in assisted living at [facility] presents to [facility] ER complaining of worsening Left heel [...] skin folds and extremely poor hygiene with BACKUP SAWYER having social work consulted and patient felt [...] is expected to extend beyond 2 midnights. [facility] Medical History Obesity Anxiety Cancer Anxiety [...] D #0 grams 11/24/21 Unknown Rx powder ([facility]) quetiapine 100 mg tablet 300 mg [...] (Auto) 72.1 H, Lymph % (Auto) 16.3 L,Hopkins % (Auto) 8.3, Eos % (Auto) 2.5, [...] Clarity Cloudy, Urine pH 5.0, Ur Specific Fisher 1.020, Urine Protein 30 H, Urine Glucose [...] changes. Soft tissue swelling. Reading Location: [facility] Imaging Services [address] [place] [address] Extremity Lower without Contra MR#: [id number] Acct: [id number] Name: VIDA NINA Rep #: [id number] : 1950 F 73 From: Saul Sanchez MD PCP: Dr. Shayna Malhotra MD Status: ADM IN Study: Extremity Lower without Contra Date of Exam: 10/09/24 Exam# [id number] Ordering Dr: Missael Hernandez DO PROCEDURE: EXTREMITY [...] Hernandez at 2:20 a.m. 10/10/2024 Reading Location: [facility] CC: Dr. Missael Hernandez DO; Dr. Shayna Malhotra MD ~ Distributor Operator: Signed Assessment & Plan Assessment/Plan (1) Acute cystitis with hematuria: (2) Neuropathic pain of foot: (3) Poor hygiene: (4) Unable to care for self: (5) Bipolar 1 disorder: (6) Morbid obesity with BMI of 45.0-49.9, adult: (7) DM2 (diabetes mellitus, type 2): QUALIFIERS: Diabetes mellitus complication status: with other specified complication Diabetes mellitus superintendent container terminal insulin use: with superintendent container terminal use Qualified Code(s): E11.69 - Type 2 diabetes mellitus with other specified complication; Z79.4 - intermediate card tender (current) use of insulin PLAN: Plan 1. Acute Cystitis; with microscopic hematuria in the setting of known frequent UTIs - Admit to general medical floor. Continue empiric IV ceftriaxone and await culture and sensitivity data. Give acetaminophen as needed for [id number] (level 1- 5/10) pain or fever. Give [...] 75 minutes. Charges/Coding Visit Charges Inpatient E&M: 44241 Init Hosp L3 10/10/24 0653 <Electronically signed by Missael Hernandez DO> Cosigner Signature (if applicable): CC: Dr. Missael Hernandez DO; Dr. Shayna Malhotra MD~ Signed [facility] Work Phone: 1(353) 755-897205-07-[address] [facility] Medical Records Department [address] [place] [address] H&P Exam - Hospitalist 10/09/242118 MR#: [id number] Acct: [id number] Name: VIDA NINA Rep #:[id number] : 1950 73 From: Missael Joiner DO PCP: Dr. Shayna Malhotra MD Status:ADM IN Location: MS3 YS310-3 HPI - General General Date of Admission: [...] is currently residing in assisted living at [facility] presents to [facility] ER complaining of worsening Leftheel pain [...] skin folds and extremely poor hygiene with BACKUP SAWYER having social work consulted and patient felt [...] is expected to extend beyond 2 midnights. [facility] Medical History Obesity Anxiety Cancer Anxiety [...] D #0 grams 11/24/21 Unknown Rx powder ([facility]) quetiapine 100 mg tablet 300 mg [...] (Auto) 72.1 H, Lymph % (Auto) 16.3 L,Hopkins % (Auto) 8.3, Eos % (Auto) 2.5, [...] Clarity Cloudy, Urine pH 5.0, Ur Specific Fisher 1.020, Urine Protein 30 H, Urine Glucose [...] changes. Soft tissue swelling. Reading Location: [facility] Imaging Services [address] [place] [address] Extremity Lower without Contra MR#: [id number] Acct: [id number] Name: VIDA NINA Rep #: [id number] : 1950 F 73 From: Saul Sanchez MD PCP: Dr. Shayna Malhotra MD Status: ADM IN Study: Extremity Lower without Contra Date of Exam: 10/09/24 Exam# [id number] Ordering Dr: Missael Hernandez DO PROCEDURE: EXTREMITY [...] Hernandez at 2:20 a.m. 10/10/2024 Reading Location: [facility] CC: Dr. Missael Hernandez DO; Dr. Shayna Malhotra MD ~ Distributor Operator: Signed Assessment & Plan Assessment/Plan (1) Acute cystitis with hematuria: (2) Neuropathic pain of foot: (3) Poor hygiene: (4) Unable to care for self: (5) Bipolar 1 disorder: (6) Morbid obesity with BMI of 45.0-49.9, adult: (7) DM2 (diabetes mellitus, type 2): QUALIFIERS: Diabetes mellitus complication status: with other specified complication Diabetes mellitus superintendent container terminal insulin use: with mcfp use Qualified Code(s): E11.69 - Type 2 diabetes mellitus with other specified complication; Z79.4 - intermediate card tender (current) use of insulin PLAN: Plan 1. Acute Cystitis; with microscopic hematuria in the setting of known frequent UTIs - Admit to general medical floor. Continue empiric IV ceftriaxone and await culture and sensitivity data. Give acetaminophen as needed for qcdh-ws-ltyoqrxv (level 1-5/10) pain or fever. Give oxycodone [...] patient Unable to Care for Herself at [facility] after the recent incarceration of her [...] - #3 - Maintain home regimen. Check STEVNE, UDS, B12 and folate to further evaluate [...] 75 minutes. Charges/Coding Visit Charges Inpatient E&M: 77748 Init Hosp L3 10/10/24 0653 Cosigner Signature (if applicable): CC: Dr. Missael Hernandez DO; Dr. Shayna Malhotra MD~ Signed [facility]05-07-2025 Radiology Diagnostic study note [facility] Imaging Services [address] [place], [place] [address] Extremity Lower without Contra MR#: [id number] Acct: [id number] Name: VIDA NINA Rep #: [id number] : 1950 F 73 From: Daniel Sanchez MD PCP: Dr. Shayna Malhotra MD Status: ADM IN Study:Extremity Lower without Contra Date of Exam: 10/09/24 Exam# [id number] Ordering Dr: Missael Piña DO PROCEDURE: EXTREMITY [...] Hernandez at 2:20 a.m. 10/10/2024 Reading Location: [facility] CC: Dr. Missael Hernandez DO; Dr. Shayna Malhotra MD ~ Distributor Operator: Signed [facility]05-06-2025 Discharge summary Author Dany Richardson [facility] Note Date/Time October 09, 2024 9:22pm [facility] Medical Records Department [address] [place] [address] Emergency Department Summary 10/09/24 MR#: [id number] Acct: [id number] Name: VIDA NINA Rep #:[id number] : 1950 73 From: Dany Richardson MD PCP: Dr. Shayna Malhotra MD Status:REG ER Location: ED HPI History of Present Illness Chief Complaint: Lower Extremity Injury Narrative Narrative: 73-year-old female states that she had pins placed in her left foot approximately 15 years ago [place] after breaking her heel. She is currentlyin [facility]. She states for the last 2 weeks she has been having increasing foot pain. She states that on Tuesday, probably of the last week, she had x-[facility]btained at the [facility]. She went and saw Dr. Shayna [...] D #0 grams 11/24/21 Unknown Rx powder ([facility]) quetiapine 100 mg tablet 300 mg [...] nonspecific foot pain. She was given 1 [place] for analgesia here, and x- rays were [...] plan was to discharge her back to [facility], however I was approached by the [...] 72.1 H Lymph % (Auto) 16.3 L Hopkins % (Auto) 8.3 Eos % (Auto) 2.5 [...] Clarity Cloudy Urine pH 5.0 Ur Specific Fisher 1.020 Urine Protein 30 H Urine Glucose [...] self, UTI (urinary tract infection) Disposition Disposition: [facility] What to do if you have Problems For any increased pain, shortness of breath, bleeding, nausea or vomiting, chestpain, or any unexpected problems, contact your Primary Care Provider. Call [facility] ([phone]) or report to the closest Emergency Room. Call 911 if necessary. 10/09/242121 <Electronically signed by Dany Richardson MD> Cosigner Signature (if applicable): CC: Dr. Shayna Malhotra MD ~ Signed [facility] Work Phone: 1(766) 446-862605-06-2025 Discharge summary [facility] Medical Records Department [address] [place] [address] Emergency Department Summary 10/09/24 MR#: [id number] Acct: [id number] Name: VIDA NINA Rep #:[id number] : 1950 73 From: Dany Richardson MD PCP: Dr. Shayna Malhotra MD Status:[facility] ER Location: ED HPI History of Present Illness Chief Complaint: Lower Extremity Injury Narrative Narrative: 73-year-old female states that she had pins placed in her left foot approximately 15 years ago [place] after breaking her heel. She is currentlyin [facility]. She states for the last 2 [...] D #0 grams 11/24/21 Unknown Rx powder ([facility]) quetiapine 100 mg tablet 300 mg (3 [...] nonspecific foot pain. She was given 1 [place] for analgesia here, and x-rays were obtained of the left footin 3 views. On my independent interpretation of her x-rays, there are postsurgical changes including hardware,but no evidence of a periprosthetic fracture, no noted loosening of hardware. There are arthritic changes as well. I reviewed the radiology report which confirms my independent interpretation. Initially my plan was to discharge her back to [facility], however I was approached by the [...] 72.1 H Lymph % (Auto) 16.3 L Hopkins % (Auto) 8.3 Eos % (Auto) 2.5 [...] Clarity Cloudy Urine pH 5.0 Ur Specific Fisher 1.020 Urine Protein 30 H Urine Glucose [...] self, UTI (urinary tract infection) Disposition Disposition: [facility] What to do if you have Problems For any increased pain, shortness of breath, bleeding, nausea or vomiting, chestpain, or any unexpected problems, contact your Primary Care Provider. Call [facility] ([phone]) or report tothe closest Emergency Room. Call 911 if necessary. 10/09/242121 Cosigner Signature (if applicable): CC: Dr. Shayna Malhotra MD ~ Signed [facility]05-06-2025 Radiology Diagnostic study note [facility] Imaging Services [address] [place], [place] [address] Foot min 3 Views MR#: [id number] Acct: [id number] Name: VIDA NINA Rep #: [id number] : 1950 F 73 From: Katarina Jiménez MD PCP: Dr. Shayna Malhotra MD Status: REG ER Study:Foot min 3 Views Date of Exam: 11/28 Exam# [id number] Ordering Dr: Dany Richardson MD EXAM: LEFT [...] Richardson MD; Dr. Shayna Malhotra MD ~ Distributor Operator: Signed [facility]01-29-2025 Evaluation note* Diagnosis Onset Date Resolution [...] 2) chronic October 09, 2024 9: 56pm [facility] Work Phone: 1(280) 811-319804-29-2022 NoteHNO ID: [id number] Author: Jennifer Cuevas MD Service: ? Author Type: Physician Type: Progress Notes Filed: 12/01/2021 8:04 AM Note Text: Gynecologic Oncology [facility] Follow up visit Date of service: 10/02/2021 PROBLEM/CC: Vida Nina presents for a post-op visit. SURGICAL PATHOLOGY [[id number]] Collected: 09/07/21 1104 Order Status: Completed Specimen: Tissue from UTERUS, CERVIX, BILATERAL FALLOPIAN TUBES AND BILATERAL OVARIES Updated: 09/11/21 1319 Case Report -- Surgical Pathology Report ? Case: [id number] ? Authorizing Provider: ?Jennifer Cuevas MD ? [...] A11 and A16 were reviewed at the [facility] gynecologic pathology consensus conference via telepathology on 09/09/[address] Lupe Younger and Andra Franco agree with the diagnosis of acute salpingitis. ? Laboratory Developed Test (LDT) Disclaimer: Performance characteristics of immunohistochemical, immunofluorescent and chromogenic in-situ hybridization tests have been determined by the performing laboratory within [facility]?s [facility] [place] ([facility], [facility], [facility] or [facility]) in a manner consistent with [...] and ( (more content not included)...[facility]04-29-2022 History of Present illness Narrative* Jennifer Cuevas MD - 10/02/2021 1:00 PM EDT Gynecologic Oncology [facility] Follow up visit Date of service: 10/02/2021 PROBLEM/CC: Vida Nina presents for a post-op visit. SURGICAL PATHOLOGY [[id number]] Collected: 09/07/21 1104 Order Status: Completed Specimen: Tissue from UTERUS, CERVIX, BILATERAL FALLOPIAN TUBES AND BILATERAL OVARIES Updated: 09/11/21 1319 Case Report -- Surgical Pathology Report Case: [id number] Authorizing Provider: Jennifer Cuevas MD Collected: 09/07/2021 [...] A11 and A16 were reviewed at the [facility] gynecologic pathology consensus conference via telepathology on 09/09/[address] Lupe Younger and Andra Franco agree with the diagnosis of acute salpingitis. Laboratory Developed Test (LDT) Disclaimer: Performance characteristics of immunohistochemical, immunofluorescent and chromogenic in-situ hybridization tests have been determined by the performing laboratory within [facility] [place] ([facility], [facility], [facility] or [facility]) in a manner consistent with [...] fibrous ovarian parenchyma with no lesions identified. Deep Submergence Vehicle Crewmember sections are submitted as follows: A1-anterior cervix [...] A 17-right ovary Gross examination performed at [facility], [address] [place] [id number] CLIA#[id number] OLS September 08, 2021 10:33 AM Intraoperative [...] many years since she has seen a skills instructor, maybe > 10 years. Reports normal pap [...] Her incisions have healed well. Abdomen non-tender. Ice Bag Assembler for exam: Sherrie RESULTS: 07/26/21: ULTRASOUND The [...] without Cont on 08-07-2021 Abdomen/Pelvis without Cont [facility] Imaging Services [address] [place] [address] Abdomen/Pelvis without Cont MR#: [id number] Acct: [id number] Name: VIDA NINA Rep #: [id number] : 1950 F 70 From: Power Lopez MD PCP: Dr. Shayna Malhotra MD Status: REG CLI Study: Abdomen/Pelvis without Cont Date of Exam: 09/25 Exam# [id number] Ordering Dr: Saad Villagomez MD STUDY: CT [...] Paper guidelines (Godoy-Parrish, et al. JACR 2017; 14(8):1260-9369) suggest no imaging follow-up is necessary. ACR White Paper guidelines (Godoy-Parrish, et al. JACR 2017; 14(8):7730-4157) suggest no imaging follow-up is necessary. Consider [...] diagnosis with patient and caregiver (Arianna from [facility]). Discussed recommendations for treatment including TLH-BSO, [...] deemed medically necessary. Reviewed prior records from [facility] and Dr. Villagomez (medical oncologist) office. Requested images from CT A/P and ultrasound to be uploaded for review. Noted elevated CA 125. Plan to proceed with surgery in September. Will need preoperative anesthesia appointment. Contact information for Jose Rafael Resendiz: nurse line [phone]; front clerk [phone]. Documentation from my notes of previous visit [...] arrange referral to radiation treatment center in [place], [place] five minutes from where she lives. [...] Past Histories independently gathered by the clinical software support representative and the remaining scribed note accurately describes my personal service to the patient. documented in this encounterCos[facility]04-29-[facility] Nurse Note* Moriah Aldridge RN - 10/02/2021 12:50 PM EDT Patient arrived amb A&Ox4 in NAD for post op visit. Patient admits to pain in abd and lower back resolved since surgery. Pt denies any new concerns, today. Pt here with Marguerite, friend. Enc and support provided. Moriah Aldridge RN documented in this encounterCoshocton [facility]04-18-2022 Miscellaneous Notes* Telephone Encounter - Jeffrey Ferris - 09/21/2021 12:10 PM EDT Spoke to Nurse Bernadine from [facility] stated that the patient is in the hospital and she will call when the patient comes out. So 09/22/21 appt in this office with Dr. Cuevas has been cancelled. Jeffrey Ferris 09/21/21 documented in this encounterCoshocton [facility]04-07-2022 Miscellaneous Notes* Telephone Encounter - Taniya Balderas APRN.CNP - 09/10/2021 8:25 AM EDT Called [facility] left message on nurse line to [...] to. meds that are susceptible are iv. [facility] can recheck urine if still + then would need to get ID involved verbal instructions per Dr julieth Balderas APRN.MICHELLE documented in this encounterCoshocton [facility]04-06-2022 Miscellaneous Notes* Telephone Encounter - Summer Turcios RN - 09/09/2021 2:50 PM EDT Franklin from [facility] returned call to this RN. Reviewed [...] confidential e-mail) Attempted to call Franklin at [facility] to review above message, no answer. Left message on voicemailto return call. Summer Turcios RN * Telephone Encounter - Summer Turcios RN - 09/09/2021 1:58 PM EDT Franklin, nursing service administrator at [facility] called stated, "one of patient's lap [...] e-mail). Summer Turcios RN documented in this encounterCoshocton [facility] Center04-05-2022 NoteHNO ID: [id number] Author: Sam Naidu DO Service: Gynecology Oncology [...] Date 09/07/21 0700 - 09/08/21 0659 Shift 4901-4170 9197-1999 2628-5500 24 Hour Total PO 360 360 PO 360 360 IV 8731 524 2920 Volume (mL) (ceFAZolin 3 g in D5W 100 mL (ANCEF)) 100 100 Volume (mL) (NaCl 0.9% iv infusion) 500 500 Volume (mL) (lactated ringers iv infusion) 1300 1300 Volume (mL) (lactated ringers iv infusion) 300 300 Shift Total 8540 053 4585 Urine 1000 1000 Void (ml) 1000 1000 [...] H Sam Naidu, DO 15 mg at 09/08/21 0512 Followed by - ibuprofen 600 mg tab(s) [...] 1545 VTE RISK CATEGORY: SURGICAL HIGH RISK ([place]) Active VTE Medication Orders: Anticoagulant AND Antiplatelet Medications (From admission, onward) Start Dose Route Frequency Last Action Ordered Stop 09/08/21 0900 enoxaparin 40 mg injection (LOVENOX) (Surgical Risk Categories) 40 mg SUBCUTANEOUS EVERY 24 HOURS Ordered 09/07/21 1542 -- Active VTE Prophylaxis Orders: 09/07/21 1545 PNEUMATIC COMPRESSION STOCKINGS ([place], [place]) 09/07/21 154 ACTIVITY - MOBILIZE PATIENT ([place]) VTE Prophylaxis: VTE prophylaxis appropriate Assessment/Plan Vida Nina is a 70 year old year old female POD#1 s/p EUA, TLH-BSO for endometrial cancer #Postoperative care - VSSAF - VTE (more content not included)...[facility]04-04-2022 Note HNO ID: [id number] Author: Hieu Raymond APRN.SENIOR WEB ARCHITECT Service: Anesthesiology Author Type: Nurse Billing Collections Specialist Type: Anesthesia Procedure Notes Filed: 09/07/2021 9:28 AM Note Text: ANESTHESIOLOGY PROCEDURE NOTE Airway General Information Procedure Start Time/Medication Administration: 09/07/2021 8:29 AM Patient location during procedure: OR Timeout Performed Pre-procedure: timeout performed Consent Obtained: Yes Patient identity confirmed: arm band Staffing SENIOR WEB ARCHITECT: Hieu Raymond APRN.SENIOR WEB ARCHITECT Performed by: ANURAG Indications and Patient Condition Preoxygenated: yes Patient position: sniffing, ramp and reverse Trendelenburg Manual In-Line Stabilization: No Difficult Mask: No Indications for airway management: anesthesia anesthesia circuit Method: modified rapid sequence Cricoid Pressure: Yes Airway Accessory: oral airway Final Airway Details Final airway type: endotracheal airway Final Endotracheal Airway: ETT Cuffed: yes Successful intubation technique: video laryngoscopy Devices used: viaCycle Endotracheal tube insertion site: oral Blade: Osman [...] intubation: no Difficult airway SIGNATURE: Hieu Raymond APRN.SENIOR WEB ARCHITECT PATIENT NAME: Vida Nina DATE: September 07, 2021 TIME: 9:25 AM CSN: [id number] Light [facility]03-29-2022 Instructions * Patient Instructions* Naila Barrientos APRN.AIRCRAFT STRUCTURAL REPAIRER - 09/01/2021 3:11 PM EDT PATIENT PREOPERATIVE INSTRUCTIONS Your surgeon has scheduled for your procedure at this surgery center: Dr. Cuevas has scheduled you for your procedure at this surgery center [facility]: [phone], [address], [place] [address] Enter the hospital through the main entrance and proceed directly to the Surgery Welcome Center. Asyou enter the Surgery Welcome Center and sign in with the manager filter, we may ask for your photo ID [...] If you are having surgery at the [facility], please bring your glucometer Pain Medications: [...] surgery. - YOU MUST HAVE A RESPONSIBLE REAL ESTATE RENTAL AGENT TAKE YOU HOME. A CREDIT RISK OFFICER, CAB OR UBER REAL ESTATE RENTAL AGENT CANNOT BE MADEA RESPONSIBLE REAL ESTATE RENTAL AGENT. - We recommend that a responsible [...] COVID-19 positive. If visitors do not follow [facility] masking guidelines, caregivers can ask them to leave thefacility and restrict their visitation privileges. For support, contact Elizabeth at [phone] or [email or web address]. The visitor will be allowed to stay [...] and will then instruct the visitor for product picker directions Visitors who have tested positive [...] Faster: A Guide of Mind Body Techniques ([place], [place];[employer]: Fourth Edition) 2011 Naila Barrientos APRN.CNP 09/01/21 documented in this encounterCoshocton Regional Medical Center03-29-2022 History and physical note * [...] with Dr. Cuevas. Surgery will be at [facility] Scheduled as an TBA Have you been in contact with someone with known coronavirus/Covid 19? no Have you had surgery or pre testing at [facility] in the past 3 years? no [...] Negative for: AICD/PPM, chest pain, CHF, recent UT and open heart surgery. GI: Positive for: abdominal pain Negative for: nausea and vomiting. : No history of dysuria, frequency or incontinence, stones or chronic kidney disease. No difficulty urinating, nocturia > 1 time per night or hematuria. 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 [...] or any previous visit (from the past 93590 hour(s)). Assessment No problem-specific Assessment & Plan [...] slightly elevated. Treated with oral medications. No data recovery planner Hyperlipidemia- treated with a statin Pertinent cardiac [...] Initiated: Ordered by surgeon- none Ordered by disintegrator operator - cbc, T*S, con abo Instructions Given to Patient: Instructions located in the after visit summary. Patient given verbal and written preop instructions and voices comprehension and compliance. SIGNATURE: Naila Barrientos APRN.CNP PATIENT NAME: Vida Nina DATE: September 01, 2021 TIME: 2:53 PM PAGER/CONTACT #: documented in this encounterCoshocton Regional Medical Center03-18-2022 NoteHNO ID: [id number] Author: Jennifer Cuevas MD Service: ? Author Type: Physician Type: Progress Notes Filed: 08/26/2021 1:21 PM Note Text: Gynecologic Oncology [facility] [place] [facility] Date of service: 08/21/2021 PCP: [...] many years since she has seen a skills instructor, maybe > 10 years. 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 Age at Menarche: ? Age at First : ? Age at Menopause: ? Senior Net Software Engineer History Comments: ? Sexual Activity: [...] by mouth (more content not included)...[facility] 07-29-2021 NoteHNO ID: [id number] Author: Krunal Erazo MD Service: ? Author [...] many years since she has seen a skills instructor, maybe > 10 years. 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 Software Engineer History LMP: Postmenopausal Age at Menarche: Age at First : Age at Menopause: Senior Net Software Engineer History Comments: Sexual Activity: Not [...] external genitalia atrophic, normal Bartholin's glands, urethra, Shelby's glands, no vulvar lesions, no cervical lesions, good vaginal support, normal appearing perineal body and perianal region, scant (more content not included)...[facility] Pre-op testing- Primary Preoperative examination, unspecified Endometrial cancer (HCC) Malignant neoplasm of corpus uteri, except isthmus Mixed hyperlipidemia 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, with long-term current use of insulin (HCC) Primary hypertension Unspecified essential hypertension Endometrial cancer (HCC) Malignant neoplasm of corpus uteri, except isthmus documented in this encounter [facility] note* Diagnosis Onset Date Resolution Status Uterine mass acute Endometrial adenocarcinoma a cute Debility acute Pulmonary embolism acute [facility] Work Phone: Evaluation note* Diagnosis Onset Date Resolution Status Uterine mass acute Endometrial adenocarcinoma a cute Debility acute Pulmonary embolism acute Debility acute Elevated troponin I level ac mark Lactic acidosis acute DM2 (diabetes mellitus, type 2) chronic [facility] Work Phone: Evaluation note* Diagnosis Endometrial cancer (HCC)- Primary Malignant neoplasm of corpus uteri, except isthmus documented in this encounter [facility] note* Diagnosis Onset Date Resolution Status Debility acute Pulmonary embolism acute Debility acute DM2 (diabetes mellitus, type 2) chronic Elevated troponin I level re solved Lactic acidosis resolved [facility] Work Phone: Evaluation noteNo assessment information available [facility] Work Phone: Evaluation note* Diagnosis Onset Date Resolution Status Debility acute Endometrial adenocarcinoma a cute Former smoker acute History of seizures acute Pulmonary embolism acute Vitamin D deficiency acute Bipolar disorder chronic DM2 (diabetes mellitus, type 2) chronic Type 1 diabetes mellitus chr onic [facility] Work Phone: Evaluation note* Diagnosis Onset Date Resolution Status Debility acute Vitamin D deficiency acute Bipolar disorder chronic Depression chronic DM2 (diabetes mellitus, type 2) chronic [facility] Work Phone: [facility] Work Phone: Hospital Discharge instructions Additional [...] care physician for further outpatient evaluation and management.[facility] Work Phone: Reason for referral (narrative)No reason for referral information availableWChillicothe Hospital Work Phone: Summary Purpose Family History [...] FoundDocuments on File Type Date Recorded 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 Advance Directive(s) 09/07/2021 6:14 AM Advance Directive Response Recorded Date/ Time Living Will No September 20, 2021 7:30am Power of Typesetting Machine Operator/Tender No September 20 7:30am Advance Directive Response Recorded Date/ Time Living Will No September 20, 2021 12:38pm Power of Typesetting Machine Operator/Tender No September 20 12:38pm Advance Directive Response Recorded Date/ Time Name of Medical Power of Typesetting Machine Operator/Tender TODD November 22, 2021 1:03pm Living Will Yes November 22, 2021 1:03pm Power of Typesetting Machine Operator/Tender Yes November 22 1:03pm Advance Directive Response Recorded Date/ Time Name of Medical Power of Typesetting Machine Operator/Tender Todd Nina November 22, 2021 5:55pm Living Will No November 22, 2021 5:55pm Power of Typesetting Machine Operator/Tender Yes November 22 5:55pm Advance Directive Response Recorded Date/ Time Living Will No April 13 10:27am Power of Typesetting Machine Operator/Tender Yes April 13, 2022 10:27am Advance Directive Response Recorded Date/ Time Living Will No April 13 11:27am Power of Typesetting Machine Operator/Tender Yes April 13, 2022 11:27am Advance Directive Response Recorded Date/ Time Living Will No January 09, 2023 5:18pm Power of Typesetting Machine Operator/Tender No January 09 5:18pm Advance Directive Response Recorded Date/ Time Living Will No January 09, 2023 4:18pm Power of Typesetting Machine Operator/Tender No January 09 4:18pm Advance Directive Response Recorded Date/ Time Do you have a Healthcare Power of Typesetting Machine Operator/Tender? Yes October 09, 2024 5:45pm Advance Directive Response Recorded Date/ Time Do you have a Healthcare Power of Typesetting Machine Operator/Tender? No October 09, 2024 11:07pm Health Concerns Infection Onset Date Last Indicated Resolved Time COVID-19 Rule-Out 09/07/2021 09/07/2021 Chief Complaint and Reason for Visit Chief Complaint RESIDENTIAL LABOWRK RESIDENTIAL LABWORK RESIDENTIAL LABWORK VAGINAL BLEEDING NEW-CERVICAL MASS MED ONC CERVICAL MASS 2WKS NO LABS REVIEW CT/PATH FRO [facility] PE, FAILURE TO THRIVE PE, FAILURE TO THRIVE Reason for Visit Uterine mass Endometrial adenocarcinoma Debility Pulmonary embolism Chief Complaint RESIDENTIAL LABOWRK RESIDENTIAL LABWORK RESIDENTIAL LABWORK VAGINAL BLEEDING NEW-CERVICAL MASS MED ONC CERVICAL MASS 2WKS NO LABS REVIEW CT/PATH FRO CCF-BARBOZA PE, FAILURE TO THRIVE PE, FAILURE TO THRIVE PE, FAILURE TO THRIVE PE, FAILURE TO THRIVE Reason for Visit Uterine mass Endometrial adenocarcinoma Debility Pulmonary embolism Chief Complaint RESIDENTIAL LABWORK RESIDENTIAL LABWORK VAGINAL BLEEDING NEW-CERVICAL MASS MED ONC CERVICAL MASS 2WKS NO LABS REVIEW CT/PATH FRO CCF-BARBOZA RESIDENTIAL LABWORK PE, FAILURE TO THRIVE PE, FAILURE TO THRIVE PE, FAILURE TO THRIVE PE, FAILURE TO THRIVE RESIDENTIAL LABWORK Reason for Visit Uterine mass Endometrial adenocarcinoma Debility Pulmonary embolism Chief Complaint VAGINAL BLEEDING NEW-CERVICAL MASS MED ONC CERVICAL MASS 2WKS NO LABS REVIEW CT/PATH FRO CCF-BARBOZA RESIDENTIAL LABWORK PE, FAILURE TO THRIVE PE, FAILURE TO THRIVE PE, FAILURE TO THRIVE PE, FAILURE TO THRIVE RESIDENTIAL LABWORK RESIDENTIAL LABWORK Reason for Visit Uterine mass Endometrial adenocarcinoma Debility Pulmonary embolism Chief Complaint VAGINAL BLEEDING NEW-CERVICAL MASS MED ONC CERVICAL MASS 2WKS NO LABS REVIEW CT/PATH FRO CCF-BARBOZA RESIDENTIAL LABWORK PE, FAILURE TO THRIVE PE, FAILURE TO THRIVE PE, FAILURE TO THRIVE PE, FAILURE TO THRIVE RESIDENTIAL LABWORK RESIDENTIAL LABWORK DEBILITY/KAYLA Reason for Visit Uterine mass Endometrial adenocarcinoma Debility Pulmonary embolism Chief Complaint NEW-CERVICAL MASS MED ONC CERVICAL MASS 2WKS NO LABS REVIEW CT/PATH FRO [facility]CF-BARBOZA RESIDENTIAL LABWORK PE, FAILURE TO THRIVE PE, FAILURE TO THRIVE PE, FAILURE TO THRIVE PE, FAILURE TO THRIVE RESIDENTIAL LABWORK RESIDENTIAL LABWORK DEBILITY/KAYLA DEBILITY/KAYLA DEBILITY/KAYLA DEBILITY/KAYLA Reason for Visit Uterine mass Endometrial adenocarcinoma Debility Pulmonary embolism Debility Elevated troponin I level Lactic acidosis DM2 (diabetes mellitus, type 2) Chief Complaint RESIDENTIAL LABWORK PE, FAILURE TO THRIVE PE, FAILURE TO THRIVE PE, FAILURE TO THRIVE PE, FAILURE TO THRIVE RESIDENTIAL LABWORK RESIDENTIAL LABWORK DEBILITY/KAYLA DEBILITY/KAYLA DEBILITY/KAYLA DEBILITY/KAYLA DEBILITY/KAYLA RESIDENTIAL LABWORK RESIDENTIAL LABWORK RESIDENTIAL LAB WORK Reason for Visit Debility Pulmonary embolism Debility DM2 (diabetes mellitus, type 2) Elevated troponin I level Lactic acidosis Chief Complaint RESIDENTIAL LABWORK RESIDENTIAL LAB WORK Chief Complaint RESIDENTIAL LAB WOR K 1 Y FU RESIDENTIAL LAB WORK Reason for Visit Debility Endometrial adenocarcinoma Former smoker History of seizures Pulmonary embolism Vitamin D deficiency Bipolar disorder DM2 (diabetes mellitus, type 2) Type 1 diabetes mellitus Chief Complaint RESIDENTIAL LAB WOR K 1 Y FU RESIDENTIAL LAB WORK RESIDENTIAL LAB WORK Reason for Visit Debility Endometrial adenocarcinoma Former smoker History of seizures Pulmonary embolism Vitamin D deficiency Bipolar disorder DM2 (diabetes mellitus, type 2) Type 1 diabetes mellitus Chief Complaint 1 Y FU RESIDENTIAL LAB WORK RESIDENTIAL LAB WORK RESIDENTIAL LABWORK Reason for Visit Debility Endometrial adenocarcinoma Former smoker History of seizures Pulmonary embolism Vitamin D deficiency Bipolar disorder DM2 (diabetes mellitus, type 2) Type 1 diabetes mellitus Chief Complaint RESIDENTIAL LAB WOR K 6 M FU gen illness Reason for Visit Debility Vitamin D deficiency Bipolar disorder Depression DM2 (diabetes mellitus, type 2) Chief Complaint RESIDENTIAL LABWORK RESIDENTIAL LABWORK Chief Complaint Admit Date LT Ankle Pain July 04, 2024 1 2:57pm RESIDENTIAL LAB WORK July 09, 2024 4:00am ACUTE CYSTITIS, NEUROPATHIC PAIN OF LEFT FOOT AND October 09, 2024 9:56pm Reason for Visit Admit Date Debility July 04, 2024 1 2:57pm Obesity July 04, 2024 1 2:57pm Lymphedema July 04, 2024 1 2:57pm Type 1 diabetes mellitus July 04 2 025 12:57pm Pain of left heel [...] Ankle Pain July 04, 2024 1 2:57pm RESIDENTIAL LAB WORK July 09, 2024 4:00am ACUTE CYSTITIS, NEUROPATHIC PAIN OF LEFT FOOT AND October 09, 2024 9:56pm ACUTE CYSTITIS, NEUROPATHIC PAIN OF LEFT FOOT AND October 10, 2024 7:39am Chief Complaint Admit Date LABOWRK November 26, 2024 5:00 am RESIDENTIAL LAB WORK December 04, 2024 4:0 0am LABOWRK January 21, 2025 5: 00am Additional Source Comments INFORMATION SOURCE (unrecogn ized section and content) DATE CREATED AUTHOR 08/31/2021 [facility] DATE CREATED AUTHOR AUTHOR'S ORGANIZ ATION 12/01/2021 [facility] DATE CREATED AUTHOR AUTHOR'S ORGANIZ ATION 04/10/2025 [facility] Source Comments (unrecognize d section and content) In the event this informatio n is protected by the Federal Confidentiality of Alcohol and Drug Abuse Patient Records regulations: The Federal rules restrict any use of the information to criminally investigate or prosecute any alcohol or drug abuse patient.[facility] Center[facility] the event this information is protected by the Federal Confidentiality of Alcohol and Drug Abuse Patient Records regulations: The Federal rules restrict any use of the information to criminally investigate or prosecute any alcohol or drug abuse patient.[facility] CenterIn the event this information is protected by the Federal Confidentiality of Alcohol and Drug Abuse Patient Records regulations: The Federal rules restrict any use of the information to criminally investigate or prosecute any alcohol or drug abuse patient.[facility] CenterIn the event this information is protected by the Federal Confidentiality of Alcohol and Drug Abuse Patient Records regulations: The Federal rules restrict any use of the information to criminally investigate or prosecute any alcohol or drug abuse patient.[facility] CenterIn the event this information is protected by the Federal Confidentiality of Alcohol and Drug Abuse Patient Records regulations: The Federal rules restrict any use of the information to criminally investigate or prosecute any alcohol or drug abuse patient.[facility] Reason for Visit (unrecogniz ed [...] Shayna Malhotra MD Primary Care Provider, Attendi Provider Active Team Status: Inactive Member Role Status Dates Dr. Shayna Malhotra MD Primary Care Provider Active Shayna Malhotra MD Attending Provider Active Team Status: Inactive Member Role Status Dates Dr. Shayna Malhotra MD Primary Care Provider Active [facility] Attending Provider Acti ve Team Status: [...] BE BASED ON THE PRIMARY CLINICAL RECORDS. [employer] provides no warranty or guarantee of the accuracy or completeness of information in this document.
[2025-04-19 18:08] LABS: Trileptal-Oxcarbazepine 6 ug/mL (10-35)
== END ==
LOC: OLS.SWAL 05:00
PROVIDERS: PCP Internal Medicine; Visit Provider Internal Medicine
DX: E11.9 Type 2 diabetes mellitus without complications (principal); I10 Essential (primary) hypertension; E78.5 Hyperlipidemia, unspecified
CPT/HCPCS: 36415; 82542

== ENCOUNTER → 2025-04-29 05:00 | Outpatient (REF) | payer MEDICARE, MEDICAID, SELFPAY ==
--- OUTSIDE RECORDS SUMMARY | 2025-04-29 03:37 | XMS RPT_ITS | CCD ---
Author Organization [facility] Care Team Providers Care Softball Core Molder Name Role Phone Sena Cox NP Unavailable Johnny Richardson Unavailable Unavailable Unavailable [facility] Shayna Malhotra Primary Care Provider Dr. Shayna Malhotra Referring Provider [phone] Saad Villagomez Attending Provider Dr. Tyler Crespo Emergency Provider [phone] Dr. Alok Abdul Admit Provider Dr. Alko Abdul Attending Provider Dr. Alok Abdul Other [...] Care Provider Dr. Shayna Malhotra Attending Provider [phone] Shayna Malhotra Primary Care Provider Dr. Shayna Malhotra Attending Provider Dr. Shayna Malhotra Primary Care Provider Dr. Shayna Malhotra Attending Provider Marya LEAL, Dr. Corral Primary Care Provider Marya LEAL, Dr. Corral Attending Provider Marya LEAL, Shayna Attending Provider Unavailabl e Marya LEAL, Shayna Referring Provider Unavailabl e yDlan LEAL, Dany Emergency Provider Hernandez DO, Dr. Canas Admit Provider Unavail able Hernandez DO, Dr. Canas Attending Provider Unav ailable Hernandez DO, Dr. Canas Other Provider Unavail able Camilo LEAL, Dr. Santillan Attending Provider Camilo LEAL, Dr. Santillan Other Provider Marya LELA, Dr. Corral Primary Care Physician [phone] Genoveva LEAL, Dr. Servin Attending Physician Unavail able Genoveva LEAL, Dr. Servin Referring Provider Unavaila Shea Whipple Attending Unavailable Marya, Shayna Primary Care Unavailable Tyrell Page Referring Unavailable Marya, Shayna Primary Care Unavailable Shayna Malhotra Attending Unavailable Missael Hernandez Consulting Unavailable Missael [...] Unavailable Marya, Shayna Primary Care Unavailable Gudla SHELLEY, Malathi Attending Unavailable Marya, Shayna Primary Care [...] Primary Care Unavailable Marya, Shayna Attending Unavailable Amrya, Shayna Primary Care Unavailable Marya, Shayna Attending Unavailable Missael Hernandez Attending Unavailable Missael Hernandez Consulting Unavailable Missael Hernandez Admitting Unavailable Marya, Shayna Primary Care Unavailable Tyrell Page Attending Unavailable Tyrell Page Consulting Unavailable Allergies Allergy Classification Reported Allergen(s) Allergy Type Date of Onset Reaction(s) Facility (20 sources) Ciprofloxacin Drug Allergy 08-12-19 06 Shortness of Breath, Anaphylaxis [facility] (20 sources) Contrast media; Translations: [red dye] Drug Allergy 02-10-20 16 [facility] (5 sources) Fish Drug Allergy 02-10-20 16 [facility] (20 sources) metFORMIN Drug Allergy 11-21-19 17 Diarrhea, GI Upset, Vomiting [facility] (20 sources) paliperidone Drug Allergy 11-21-19 17 Rash [facility] (14 sources) Penicillins Drug Allergy 07-15-19 06 [facility] (20 sources) Shellfish; Translations: [shellfish derived] Drug Intolerance 02-29-20 19 Diarrhea, Vomiting [facility] (15 sources) Sulfonamides (Antibiotic) Drug Allergy 07-15-19 06 [facility] (15 sources) Iodinated Contrast Media Drug Allergy 02-29-20 19 Rash [facility] (4 sources) Mold Extract Drug Allergy 09-08-19 Rash [facility] (20 sources) Ciprofloxacin; Translations: [ciprofloxacin HCl] Drug Allergy 08-12-19 22 Anaphylaxis [facility] (19 sources) red (food color); Translations: [red (food color)] Allergy to substance 09-21-19 Hives [facility] (1 source) Penicillins Drug Allergy 07-15-19 Rash [facility] (9 sources) Penicillins Allergy to substance 11-23-19 RASH AND ITCHING [facility] (9 sources) Sulfonamides (Antibiotic) Allergy to substance 11-23-19 RASH AND ITCHING [facility] (9 sources) Triiodobenzoic Acids Allergy to substance 11-23-19 Rash [facility] (1 source) Ciprofloxacin Drug Allergy 10-10-19 [facility] (1 source) metFORMIN Drug Allergy 10-10-19 [facility] (1 source) paliperidone Drug Allergy 10-10-19 [facility] (1 source) Penicillins Drug allergy (disorder) 10-10-19 [facility] (1 source) Sulfonamides (Antibiotic) Drug allergy (disorder) 10-10-19 [facility] (1 source) Iodinated Contrast Media Drug allergy (disorder) 10-10-19 [facility] Medications Current Medications Medication Drug Class(es) Dates Sig (Normalized) Sig (Original) acetaminophen 325 mg oral tablet (20 sources) Start: 09-07-2021 End: 09-21-2021 take 2 tablets by mouth every six hours acetaminophen (TYLENOL) 325 mg tablet Take 2 tablets by mouth every 6 hours for 14 days. 112 tablet 0 09/07/2021 09/21/2021 Active Start: 07-30-2021 [facility] Acetaminophen (Tylenol) 325 mg tablet Active 325 MG PO EVERY 4 HOURS NEEDED July 30, 2021 4:00pm Start: 07-30-2021 take 1 tablet by mouth once Ac etaminophen (Tylenol) 325 mg tablet Active 325 MG PO ONCE July 30, 2021 4:00pm Start: 07-30-2021 take 2 tablets by mo ut every four hours as needed for pain [...] D2 Compound Start: 09-20-2021 Start: 09-20-2021 take 96192 [IU] by m outh every other week Ergocalciferol (Vitamin D2) Active 12138 UNIT PO Q1September 19, 2021 11:00pm Take every 2 weeks on Mondays Start: 09-08-2017 End: 03-21-2020 Ergocalciferol (Vitamin D2) 50,000 unit capsule Discontinued 77360 U PO EVERY MONTH 10 September 08, [...] SOPN Use 18 units daily. INSULIN GLARGINE [id number] Sena Cox NP Comment on above: Inject [...] uth daily at bedtime. 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 LANCETS (3 sources) Start: 10-26-2016 ONETOUCH SANDRO TS [facility] Use to check blood glucose up to 4 times daily. LANCETS [id number] Sena Cox F[employer] FASHIONED GARMENT KNITTER mag hydrox/aluminum hyd/simeth (ANTACID SUSPENSION ORAL) (5 [...] Active Comment on above: twice daily. nystatin 680268 unt/ml oral suspension (17 sources) Polyene Antifungal [...] November 23, 2021 11:00pm polyethylene glycol 3350 62281 mg powder for oral solution (9 sources) Osmotic Laxative Start: 09-08-2021 End: 10-08-2021 polyethylene glycol 3350 (MIRALAX, GLYCOLAX) 17 gram packet Take 1 Packet by mouth once daily. Dissolve dose in 4 - 8 ounces of liquid and take as directed. 30 Packet 0 09/08/2021 10/08/2021 Comment on above: Take 1 Packet by [facility] once daily. Dissolve dose in 4 - [...] shows localized disease. 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] Onset: 10-11-2024 Episodic Other connective tissue disease (5 sources) Muscle pain; Translations: [Myalgia and myositis, unspecified] Onset: 07-15-2005 07-15-2005 Episodic Other connective tissue disease (1 source) Pain in right foot; Translations: [Pain in right foot] Onset: 11-20-2024 Episodic Other connective tissue disease (1 source) Pain in left foot; Translations: [Pain in left foot] Onset: 10-19-2024 Episodic Other connective tissue disease (1 source) Neuralgia and neuritis, unspecified; Translations: [Neuralgia and neuritis, unspecified] Onset: 10-11-2024 Episodic Other ear and sense organ disorders [...] on 04-04-2025 LAMOTRIGINE 8.1 ug/mL Normal 2.0-20.0 [facility] Comment on above: Result Comment: Dete ction Limit = 1.0 Performed at: [facility] [address] [id number] Kiln Car Repairer: Cody Llanos MD, Phone: [phone] Performed By: #### L 500.4050, L506.1000, L501.9985, L100.0100 #### [facility] [address] [place], [address] Urine Cultureon 04-03-2025 URC Presumptive E. coli [place] Count >100,000 Presumptive E. coli: REACTION Ampicillin [...] TMP SMX Islt TRANG <=20 S Normal [facility] Comment on above: Performed By: #### L 500.4050, L506.1000, L501.9985, L100.0100 #### [facility] [address] [place], [address] Basic Metabolic Profile (BMP )on 04-01-2025 BUN/CRE 23.4 RATIO High 10-20 [facility] Comment on above: Performed By: #### L 501.080 #### [facility] [address] [place], [address] Calcium [Mass/Vol] 9.4 mg/dL Normal 7.6-11.0 [facility] Comment on above: Performed By: #### L 501.080 #### [facility] [address] [place], [address] Chloride [Moles/Vol] 102 mmol/L Normal 98-108 [facility] Comment on above: Performed By: #### L 501.080 #### [facility] [address] [place], [address] CO2 [Moles/Vol] 25.7 mmol/L Normal 21.0-32.0 [facility] Comment on above: Performed By: #### L 501.080 #### [facility] [address] [place], [address] Creatinine [Mass/Vol] 1.04 mg/dL Normal 0.70-1.[address] [facility] Comment on above: Performed By: #### L 501.080 #### [facility] [address] [place], [address] GAP 10 Normal 5-15 [facility] Comment on above: Performed By: #### L 501.080 #### [facility] [address] [place], [address] GFR/1.73 sq M.predicted among non-blacks MDRD (S/P/Bld) [Vol rate/Area] 57 mL/min/{1.73_m2} Low >60 [facility] Comment on above: Result Comment: mL/m in/1.73m2 CKD-EPI Creatinine Equation (2020) Performed By: #### L 501.080 #### [facility] [address] [place], [address] Glucose [Mass/Vol] 214 mg/dL High 70-99 [facility] Comment on above: Performed By: #### L 501.080 #### [facility] [address] [place], [address] Potassium [Moles/Vol] 4.5 mmol/L Normal 3.3-5.[address] [facility] Comment on above: Performed By: #### L 501.080 #### [facility] [address] [place], [address] Sodium [Moles/Vol] 138 mmol/L Normal 133-145 [facility] Comment on above: Performed By: #### L 501.080 #### [facility] [address] [place], [address] Urea nitrogen [Mass/Vol] 24 mg/dL High 4-19 [facility] Comment on above: Performed By: #### L 501.080 #### [facility] [address] [place], [address] CBC-Complete Blood Cnt No Di ffon 04-01-2025 Erythrocyte distribution width (RBC) [Ratio] 14.6 % Normal 11.6-14.6 [facility] Comment on above: Performed By: #### L 501.080 #### [facility] [address] [place], [address] Hematocrit (Bld) [Volume fraction] 34.6 % Low 37-47 [facility] Comment on above: Performed By: #### L 501.080 #### [facility] [address] [place], [address] Hemoglobin (Bld) [Mass/Vol] 11.6 g/dL Low 12.0-15.0 [facility] Comment on above: Performed By: #### L 501.080 #### [facility] [address] [place], [address] MCH (RBC) [Entitic mass] 30.4 pg Normal 27.0-32.0 [facility] Comment on above: Performed By: #### L 501.080 #### [facility] [address] [place], [address] MCHC (RBC) [Mass/Vol] 33.5 g/dL Normal 32-[address] [facility] Comment on above: Performed By: #### L 501.080 #### [facility] [address] [place], [address] MCV (RBC) [Entitic vol] 90.6 fL Normal 81-99 [facility] Comment on above: Performed By: #### L 501.080 #### [facility] [address] [place], [address] Platelet mean volume (Bld) [Entitic vol] 11.0 fL Normal 6.2-12.0 [facility] Comment on above: Performed By: #### L 501.080 #### [facility] [address] [place], [address] Platelets (Bld) [#/Vol] 103 10*3/uL Low 150-450 [facility] Comment on above: Performed By: #### L 501.080 #### [facility] [address] [place], [address] RBC (Bld) [#/Vol] 3.82 10*6/uL Low 4.2-5.4 [facility] Comment on above: Performed By: #### L 501.080 #### [facility] [address] [place], [address] RDW SD 48.3 fl High 35.1-43.9 [facility] Comment on above: Performed By: #### L 501.080 #### [facility] [address] [place], [address] WBC (Bld) [#/Vol] 3.6 10*3/uL Low 4.4-11.0 [facility] Comment on above: Performed By: #### L 501.080 #### [facility] [address] [place], [address] Magnesiumon 04-01-2025 Magnesium [Mass/Vol] 2.3 mg/dL High 1.5-2.2 [facility] Comment on above: Performed By: #### L 501.080 #### [facility] [address] [place], [address] Urinalysis, Completeon 04-01 BACTERIA 2+ /hpf Normal None Seen [facility] Comment on above: Order Comment: CLEAN CATCH Performed By: #### L 501.080 #### [facility] [address] [place], [address] EPI,SQUAMOUS 0-5 SEEN Normal 5-10 [facility] Comment on above: Order Comment: CLEAN CATCH Performed By: #### L 501.080 #### [facility] [address] [place], [address] WBC 10-25 SEEN Normal 0-5 [facility] Comment on above: Order Comment: CLEAN CATCH Performed By: #### L 501.080 #### [facility] [address] [place], [address] Mucus Ql (Urine sed) 0 SEEN Normal [facility] Comment on above: Order Comment: CLEAN CATCH Performed By: #### L 501.080 #### [facility] [address] [place], [address] RBC 0 SEEN Normal 0-5 [facility] Comment on above: Order Comment: CLEAN CATCH Performed By: #### L 501.080 #### [facility] [address] [place], [address] Basic Metabolic Profile (BMP )on 03-20-2025 BUN/CRE 20.6 RATIO High 03-25 [facility] Comment on above: Order Comment: 134 Performed By: #### L 500.4050, L506.1000, L501.9985, L100.0100 #### [facility] [address] [place], [address] Calcium [Mass/Vol] 9.7 mg/dL Normal 7.6-11.0 [facility] Comment on above: Order Comment: 134 Performed By: #### L 500.4050, L506.1000, L501.9985, L100.0100 #### [facility] [address] [place], [address] Chloride [Moles/Vol] 103 mmol/L Normal 98-108 [facility] Comment on above: Order Comment: 134 Performed By: #### L 500.4050, L506.1000, L501.9985, L100.0100 #### [facility] [address] [place], [address] CO2 [Moles/Vol] 21.4 mmol/L Normal 21.0-32.0 [facility] Comment on above: Order Comment: 134 Performed By: #### L 500.4050, L506.1000, L501.9985, L100.0100 #### [facility] [address] [place], [address] Creatinine [Mass/Vol] 1.15 mg/dL Normal 0.70-1.[address] [facility] Comment on above: Order Comment: 134 Performed By: #### L 500.4050, L506.1000, L501.9985, L100.0100 #### [facility] [address] [place], [address] GAP 13 Normal 5-15 [facility] Comment on above: Order Comment: 134 Performed By: #### L 500.4050, L506.1000, L501.9985, L100.0100 #### [facility] [address] [place], [address] GFR/1.73 sq M.predicted among non-blacks MDRD (S/P/Bld) [Vol rate/Area] 51 mL/min/{1.73_m2} Low >60 [facility] Comment on above: Order Comment: 134 Result Comment: mL/m in/1.73m2 CKD-EPI Creatinine Equation (2020) Performed By: #### L 500.4050, L506.1000, L501.9985, L100.0100 #### [facility] [address] [place], [address] Glucose [Mass/Vol] 224 mg/dL High 70-99 [facility] Comment on above: Order Comment: 134 Performed By: #### L 500.4050, L506.1000, L501.9985, L100.0100 #### [facility] [address] [place], [address] Potassium [Moles/Vol] 4.7 mmol/L Normal 3.3-5.[address] [facility] Comment on above: Order Comment: 134 Result Comment: Hemo lysis present, Results??could be affected. ?? Performed By: #### L 500.4050, L506.1000, L501.9985, L100.0100 #### [facility] [address] [place], [address] Sodium [Moles/Vol] 137 mmol/L Normal 133-145 [facility] Comment on above: Order Comment: 134 Performed By: #### L 500.4050, L506.1000, L501.9985, L100.0100 #### [facility] [address] [place], [address] Urea nitrogen [Mass/Vol] 24 mg/dL High 4-19 [facility] Comment on above: Order Comment: 134 Performed By: #### L 500.4050, L506.1000, L501.9985, L100.0100 #### [facility] [address] [place], [address] CBC-Complete Blood Cnt No Di ffon 03-20-2025 Erythrocyte distribution width (RBC) [Ratio] 14.8 % High 11.6-14.6 [facility] Comment on above: Order Comment: 134 Performed By: #### L 500.4050, L506.1000, L501.9985, L100.0100 #### [facility] [address] [place], [address] Hematocrit (Bld) [Volume fraction] 35.8 % Low 37-47 [facility] Comment on above: Order Comment: 134 Performed By: #### L 500.4050, L506.1000, L501.9985, L100.0100 #### [facility] [address] [place], [address] Hemoglobin (Bld) [Mass/Vol] 11.8 g/dL Low 12.0-15.0 [facility] Comment on above: Order Comment: 134 Performed By: #### L 500.4050, L506.1000, L501.9985, L100.0100 #### [facility] [address] [place], [address] MCH (RBC) [Entitic mass] 29.9 pg Normal 27.0-32.0 [facility] Comment on above: Order Comment: 134 Performed By: #### L 500.4050, L506.1000, L501.9985, L100.0100 #### [facility] [address] [place], [address] MCHC (RBC) [Mass/Vol] 33.0 g/dL Normal 32-[address] [facility] Comment on above: Order Comment: 134 Performed By: #### L 500.4050, L506.1000, L501.9985, L100.0100 #### [facility] [address] [place], [address] MCV (RBC) [Entitic vol] 90.6 fL Normal 81-99 [facility] Comment on above: Order Comment: 134 Performed By: #### L 500.4050, L506.1000, L501.9985, L100.0100 #### [facility] [address] [place], [address] Platelet mean volume (Bld) [Entitic vol] 11.3 fL Normal 6.2-12.0 [facility] Comment on above: Order Comment: 134 Performed By: #### L 500.4050, L506.1000, L501.9985, L100.0100 #### [facility] [address] [place], [address] Platelets (Bld) [#/Vol] 103 10*3/uL Low 150-450 [facility] Comment on above: Order Comment: 134 Performed By: #### L 500.4050, L506.1000, L501.9985, L100.0100 #### [facility] [address] [place], [address] RBC (Bld) [#/Vol] 3.95 10*6/uL Low 4.2-5.4 [facility] Comment on above: Order Comment: 134 Performed By: #### L 500.4050, L506.1000, L501.9985, L100.0100 #### [facility] [address] [place], [address] RDW SD 49.4 fl High 35.1-43.9 [facility] Comment on above: Order Comment: 134 Performed By: #### L 500.4050, L506.1000, L501.9985, L100.0100 #### [facility] [address] [place], [address] WBC (Bld) [#/Vol] 3.7 10*3/uL Low 4.4-11.0 [facility] Comment on above: Order Comment: 134 Performed By: #### L 500.4050, L506.1000, L501.9985, L100.0100 #### [facility] [address] [place], [address] Hemoglobin A1con 03-20-2025 HbA1c (Bld) [Mass fraction] 7.1 % High <=5.6 [facility] Comment on above: Order Comment: 134 Result Comment: Norm al < 5.7 % Prediabetic 5.7 - 6.4 % Diabetic >or= 6.5 % Please note range changes. Performed By: #### L 500.4050, L506.1000, L501.9985, L100.0100 #### [facility] [address] [place], [address] Pro- Brain NATRIURETIC PEPTI Oskar 03-20-2025 Natriuretic peptide B (Bld) [Mass/Vol] 133 pg/mL Normal <=900 [facility] Comment on above: Order Comment: 134 Result Comment: Hear t Failure Unlikely: < 300 pg/mL Heart Failure Likely < 50 Years: > 450 pg/mL 50-75 Years: > 900 pg/mL >75 Years: > 1800 pg/mL Performed By: #### L 500.4050, L506.1000, L501.9985, L100.0100 #### [facility] [address] [place], [address] Magnesiumon 01-23-2025 Magnesium [Mass/Vol] 2.1 mg/dL Normal 1.5-2.2 [facility] Comment on above: Order Comment: 134 Performed By: #### L 500.4050, L506.1000, L501.9985, L100.0100 #### [facility] [address] [place], [address] Anion gap in Serum or Plasma Ordered By: Malathi Tomas on 01-21-2025 Anion gap [Moles/Vol] 13 mmol/L -[address] [facility] BUN/creatinine ratioOrdered By: Malathi Tomas on 01-21-2025 Urea nitrogen/Creatinine [Mass ratio] 23.4 mg/mg High - [facility] Basic Metabolic Profile (BMP )on 01-21-2025 BUN/CRE 23.4 RATIO High - [facility] Comment on above: Order Comment: 134 Performed By: #### L 500.4050, L506.1000, L501.9985, L100.0100 #### [facility] [address] [place], [address] Calcium [Mass/Vol] 9.2 mg/dL Normal 7.6-11.0 [facility] Comment on above: Order Comment: 134 Performed By: #### L 500.4050, L506.1000, L501.9985, L100.0100 #### [facility] [address] [place], [address] Chloride [Moles/Vol] 103 mmol/L Normal 98-108 [facility] Comment on above: Order Comment: 134 Performed By: #### L 500.4050, L506.1000, L501.9985, L100.0100 #### [facility] [address] [place], [address] CO2 [Moles/Vol] 20.8 mmol/L Low 21.0-32.0 [facility] Comment on above: Order Comment: 134 Performed By: #### L 500.4050, L506.1000, L501.9985, L100.0100 #### [facility] [address] [place], [address] Creatinine [Mass/Vol] 1.01 mg/dL Normal 0.70-1.[address] [facility] Comment on above: Order Comment: 134 Performed By: #### L 500.4050, L506.1000, L501.9985, L100.0100 #### [facility] [address] [place], [address] GAP 13 Normal 5-15 [facility] Comment on above: Order Comment: 134 Performed By: #### L 500.4050, L506.1000, L501.9985, L100.0100 #### [facility] [address] [place], [address] GFR/1.73 sq M.predicted among non-blacks MDRD (S/P/Bld) [Vol rate/Area] 59 mL/min/{1.73_m2} Low >60 [facility] Comment on above: Order Comment: 134 Result Comment: mL/m in/1.73m2 CKD-EPI Creatinine Equation (2020) Performed By: #### L 500.4050, L506.1000, L501.9985, L100.0100 #### [facility] [address] [place], [address] Glucose [Mass/Vol] 164 mg/dL High 70-99 [facility] Comment on above: Order Comment: 134 Performed By: #### L 500.4050, L506.1000, L501.9985, L100.0100 #### [facility] [address] [place], [address] Potassium [Moles/Vol] 4.8 mmol/L Normal 3.3-5.[address] [facility] Comment on above: Order Comment: 134 Performed By: #### L 500.4050, L506.1000, L501.9985, L100.0100 #### [facility] [address] [place], [address] Sodium [Moles/Vol] 137 mmol/L Normal 133-145 [facility] Comment on above: Order Comment: 134 Performed By: #### L 500.4050, L506.1000, L501.9985, L100.0100 #### [facility] [address] [place], [address] Urea nitrogen [Mass/Vol] 24 mg/dL High 4-19 [facility] Comment on above: Order Comment: 134 Performed By: #### L 500.4050, L506.1000, L501.9985, L100.0100 #### [facility] [address] [place], [address] Carbon dioxide, total [Moles /volume] in Central venous bloodOrdered By: Malathi Tomas on 01-21-2025 CO2 [Moles/Vol] 20.8 mmol/L Low 21.0-32.0 [facility] Chloride assayOrdered By: Tao Tomas on 01-21-2025 Chloride [Moles/Vol] 103 mmol/L 98-108 [facility] Glomerular filtration rate ( GFR) estimation/1.73 sq m using serum, plasma, or whole bOrdered By: Malathi Tomas on 01-21-2025 GFR/1.73 sq M.predicted among non-blacks MDRD (S/P/Bld) [Vol rate/Area] 59 mL/min/{1.73_m2} Low >60 [facility] Comment on above: mL/min/1.73m2 CKD-EP I Creatinine Equation (2020) Magnesium measurement (mass/ volume)Ordered By: Malathi Tomas on 01-21-2025 Magnesium (Unsp spec) [Mass/Vol] 2.1 mg/dL 1.5-2.2 [facility] Natriuretic peptide.B prohor mgai N-Terminal [Mass/volume] in Serum or PlasmaOrdered By: Malathi Tomas on 01-21-2025 Natriuretic peptide.B prohormone N-Terminal [Mass/Vol] 260 pg/mL <900 [facility] Comment on above: Heart Failure Unlike ly: < 300 pg/mLHeart Failure Likely< 50 Years: > 450 pg/mL50-75 Years: > 900 pg/mL>75 Years: > 1800 pg/mL Potassium measurement (mass/ volume)Ordered By: Malathi Tomas on 01-21-2025 Potassium (Unsp spec) [Mass/Vol] 4.8 mmol/L 3.3-5.1 [facility] Pro- Brain NATRIURETIC PEPTI Oskar 01-21-2025 Natriuretic peptide B (Bld) [Mass/Vol] 260 pg/mL Normal <=900 [facility] Comment on above: Order Comment: 134 Result Comment: Hear t Failure Unlikely: < 300 pg/mL Heart Failure Likely < 50 Years: > 450 pg/mL 50-75 Years: > 900 pg/mL >75 Years: > 1800 pg/mL Performed By: #### L 500.4050, L506.1000, L501.9985, L100.0100 #### [facility] [place], [address] Serum creatinine measurement (mass/volume)Ordered By: Malathi Tomas on 01-21-2025 Creatinine [Mass/Vol] 1.01 mg/dL 0.70-1.[address] [facility] Serum glucose measurement (m ass/volume)Ordered By: Malathi Tomas on 01-21-2025 Glucose [Mass/Vol] 164 mg/dL High 70-99 [facility] Serum or plasma calcium kim urement (mass/volume)Ordered By: Malathi Tomas on 01-21-2025 Calcium [Mass/Vol] 9.2 mg/dL 7.6-11.0 [facility] Serum or plasma urea nitroge n measurement (mass/volume)Ordered By: Malathi Tomas on 01-21-2025 Urea nitrogen [Mass/Vol] 24 mg/dL High 4-19 [facility] Sodium levelOrdered By: Marie Tomas on 01-21-2025 Sodium [Moles/Vol] 137 mmol/L 133-145 [facility] Anion gap in Serum or Plasma Ordered By: Malathi Tomas on 12-04-2024 Anion gap [Moles/Vol] 10 mmol/L 5-[address] [facility] BUN/creatinine ratioOrdered By: Malathi Tomas on 12-04-2024 Urea nitrogen/Creatinine [Mass ratio] 22.2 mg/mg High - [facility] Basic Metabolic Profile (BMP )on 12-04-2024 BUN/CRE 22.2 RATIO High - [facility] Comment on above: Order Comment: N Performed By: #### L 506.0200 #### [facility] [address] [place], [address] Calcium [Mass/Vol] 9.4 mg/dL Normal 7.6-11.0 [facility] Comment on above: Order Comment: N Performed By: #### L 506.0200 #### [facility] [address] [place], [address] Chloride [Moles/Vol] 103 mmol/L Normal 98-108 [facility] Comment on above: Order Comment: N Performed By: #### L 506.0200 #### [facility] [address] [place], [address] CO2 [Moles/Vol] 23.5 mmol/L Normal 21.0-32.0 [facility] Comment on above: Order Comment: N Performed By: #### L 506.0200 #### [facility] [address] [place], [address] Creatinine [Mass/Vol] 1.13 mg/dL Normal 0.70-1.[address] [facility] Comment on above: Order Comment: N Performed By: #### L [id number] #### [facility] [address] [place], [address] GAP 10 Normal 5-15 [facility] Comment on above: Order Comment: N Performed By: #### L 506.0200 #### [facility] [address] [place], [address] GFR/1.73 sq M.predicted among non-blacks MDRD (S/P/Bld) [Vol rate/Area] 52 mL/min/{1.73_m2} Low >60 [facility] Comment on above: Order Comment: N Result Comment: mL/m in/1.73m2 CKD-EPI Creatinine Equation (2020) Performed By: #### L 506.0200 #### [facility] [address] [place], [address] Glucose [Mass/Vol] 83 mg/dL Normal 70-99 [facility] Comment on above: Order Comment: N Performed By: #### L 506.0200 #### [facility] [address] [place], [address] Potassium [Moles/Vol] 5.1 mmol/L Normal 3.3-5.[address] [facility] Comment on above: Order Comment: N Result Comment: Hemo lysis present, Results??could be affected. ?? Performed By: #### L 506.0200 #### [facility] [address] [place], [address] Sodium [Moles/Vol] 136 mmol/L Normal 133-145 [facility] Comment on above: Order Comment: N Performed By: #### L 506.0200 #### [facility] [address] [place], [address] Urea nitrogen [Mass/Vol] 25 mg/dL High 4-19 [facility] Comment on above: Order Comment: N Performed By: #### L 506.0200 #### [facility] [address] [place], [address] CBC-Complete Blood Cnt No Di ffon 12-04-2024 Erythrocyte distribution width (RBC) [Ratio] 16.2 % High 11.6-14.6 [facility] Comment on above: Order Comment: N Performed By: #### L 506.0200 #### [facility] [address] [place], [address] Hematocrit (Bld) [Volume fraction] 33.8 % Low 37-47 [facility] Comment on above: Order Comment: N Performed By: #### L 506.0200 #### [facility] [address] [place], [address] Hemoglobin (Bld) [Mass/Vol] 11.2 g/dL Low 12.0-15.0 [facility] Comment on above: Order Comment: N Performed By: #### L 506.0200 #### [facility] [address] [place], [address] MCH (RBC) [Entitic mass] 29.3 pg Normal 27.0-32.0 [facility] Comment on above: Order Comment: N Performed By: #### L 506.0200 #### [facility] [address] [place], [address] MCHC (RBC) [Mass/Vol] 33.1 g/dL Normal 32-[address] [facility] Comment on above: Order Comment: N Performed By: #### L 506.0200 #### [facility] [address] [place], [address] MCV (RBC) [Entitic vol] 88.5 fL Normal 81-99 [facility] Comment on above: Order Comment: N Performed By: #### L 506.0200 #### [facility] [address] [place], [address] Platelet mean volume (Bld) [Entitic vol] 11.2 fL Normal 6.2-12.0 [facility] Comment on above: Order Comment: N Performed By: #### L 506.0200 #### [facility] [address] [place], [address] Platelets (Bld) [#/Vol] 119 10*3/uL Low 150-450 [facility] Comment on above: Order Comment: N Performed By: #### L 506.0200 #### [facility] [address] [place], [address] RBC (Bld) [#/Vol] 3.82 10*6/uL Low 4.2-5.4 [facility] Comment on above: Order Comment: N Performed By: #### L 506.0200 #### [facility] [address] [place], [address] RDW SD 52.9 fl High 35.1-43.9 [facility] Comment on above: Order Comment: N Performed By: #### L 506.0200 #### [facility] [address] [place], [address] WBC (Bld) [#/Vol] 3.1 10*3/uL Low 4.4-11.0 [facility] Comment on above: Order Comment: N Performed By: #### L 506.0200 #### [facility] [address] [place], [address] Carbon dioxide, total [Moles /volume] in Central venous bloodOrdered By: Malathi Tomas on 12-04-2024 CO2 [Moles/Vol] 23.5 mmol/L 21.0-32.0 [facility] Chloride assayOrdered By: Tao Tomas on 12-04-2024 Chloride [Moles/Vol] 103 mmol/L 98-108 [facility] Erythrocyte distribution wid th ratioOrdered By: Malathi Tomas on 12-04-2024 Erythrocyte distribution width (RBC) [Ratio] 16.2 % High 11.6-14.6 [facility] Erythrocyte distribution wid th standard deviationOrdered By: Malathi Tomas on 12-04-2024 Erythrocyte distribution width (RBC) [Ratio] 52.9 fl High 35.1-43.9 [facility] Glomerular filtration rate ( GFR) estimation/1.73 sq m using serum, plasma, or whole bOrdered By: Malathi Tomas on 12-04-2024 GFR/1.73 sq M.predicted among non-blacks MDRD (S/P/Bld) [Vol rate/Area] 52 mL/min/{1.73_m2} Low >60 [facility] Comment on above: mL/min/1.73m2 CKD-EP I Creatinine Equation (2020) Hematocrit Auto (Bld) [Volum e fraction]Ordered By: Malathi Tomas on 12-04-2024 Hematocrit (Bld) [Volume fraction] 33.8 % Low 37-47 [facility] Hemoglobin measurementOrdere d By: Malathi Tomas on 12-04-2024 Hemoglobin (Bld) [Mass/Vol] 11.2 g/dL Low 12.0-15.0 [facility] MCV (mean corpuscular volume ) determinationOrdered By: Malathi Tomas on 12-04-2024 MCV (RBC) [Entitic vol] 88.5 fL 81-99 [facility] Magnesiumon 12-04-2024 Magnesium [Mass/Vol] 2.3 mg/dL High 1.5-2.2 [facility] Comment on above: Order Comment: N Performed By: #### L 506.0200 #### [facility] [address] [place], [place] [address], [id number] Magnesium measurement (mass/ volume)Ordered By: Malathi Tomas on 12-04-2024 Magnesium (Unsp spec) [Mass/Vol] 2.3 mg/dL High 1.5-2.2 [facility] Mean corpuscular hemoglobin (MCH) determinationOrdered By: Malathi Tomas on 12-04-2024 MCH (RBC) [Entitic mass] 29.3 pg 27.0-32.0 [facility] Mean corpuscular hemoglobin concentration (MCHC) determinationOrdered By: Malathi Tomas on 12-04-2024 MCHC (RBC) [Mass/Vol] 33.1 g/dL 32-[address] [facility] Mean platelet volume determi nationOrdered By: Malathi Tomas on 12-04-2024 Platelet mean volume (Bld) [Entitic vol] 11.2 fL 6.2-12.0 [facility] Platelet countOrdered By: Tao Tomas on 12-04-2024 Platelets (Bld) [#/Vol] 119 10*3/uL Low 150-450 [facility] Potassium measurement (mass/ volume)Ordered By: Malathi Tomas on 12-04-2024 Potassium (Unsp spec) [Mass/Vol] 5.1 mmol/L 3.3-5.1 [facility] Comment on above: Hemolysis present, R esults could be affected. RBC Auto (Bld) [#/Vol]Ordere d By: Malathi Tomas on 12-04-2024 RBC (Bld) [#/Vol] 3.82 10*6/uL Low 4.2-5.4 [facility] Serum creatinine measurement (mass/volume)Ordered By: Malathi Tomas on 12-04-2024 Creatinine [Mass/Vol] 1.13 mg/dL 0.70-1.[address] [facility] Serum glucose measurement (m ass/volume)Ordered By: Malathi Tomas on 12-04-2024 Glucose [Mass/Vol] 83 mg/dL 70-99 [facility] Serum or plasma calcium kim urement (mass/volume)Ordered By: Malathi Tomas on 12-04-2024 Calcium [Mass/Vol] 9.4 mg/dL 7.6-11.0 [facility] Serum or plasma urea nitroge n measurement (mass/volume)Ordered By: Malathi Tomas on 12-04-2024 Urea nitrogen [Mass/Vol] 25 mg/dL High 4-19 [facility] Sodium levelOrdered By: Marie Tomas on 12-04-2024 Sodium [Moles/Vol] 136 mmol/L 133-145 [facility] White blood cell (WBC) count Ordered By: Malathi Tomas on 12-04-2024 WBC (Bld) [#/Vol] 3.1 10*3/uL Low 4.4-11.0 [facility] Anion gap in Serum or Plasma Ordered By: Malathi Tomas on 11-26-2024 Anion gap [Moles/Vol] 12 mmol/L 5-[address] [facility] BUN/creatinine ratioOrdered By: Malathi Tomas on 11-26-2024 Urea nitrogen/Creatinine [Mass ratio] 19.5 mg/mg - [facility] Basic Metabolic Profile (BMP )on 11-26-2024 BUN/CRE 19.5 RATIO Normal - [facility] Comment on above: Order Comment: 134 Performed By: #### L 500.4050, L506.1000, L501.9985, L100.0100 #### [facility] [address] [place], [address] Calcium [Mass/Vol] 9.3 mg/dL Normal 7.6-11.0 [facility] Comment on above: Order Comment: 134 Performed By: #### L 500.4050, L506.1000, L501.9985, L100.0100 #### [facility] [address] [place], [address] Chloride [Moles/Vol] 106 mmol/L Normal 98-108 [facility] Comment on above: Order Comment: 134 Performed By: #### L 500.4050, L506.1000, L501.9985, L100.0100 #### [facility] [address] [place], [address] CO2 [Moles/Vol] 22.9 mmol/L Normal 21.0-32.0 [facility] Comment on above: Order Comment: 134 Performed By: #### L 500.4050, L506.1000, L501.9985, L100.0100 #### [facility] [address] [place], [address] Creatinine [Mass/Vol] 0.95 mg/dL Normal 0.70-1.[address] [facility] Comment on above: Order Comment: 134 Performed By: #### L 500.4050, L506.1000, L501.9985, L100.0100 #### [facility] [address] [place], [address] GAP 12 Normal 5-15 [facility] Comment on above: Order Comment: 134 Performed By: #### L 500.4050, L506.1000, L501.9985, L100.0100 #### [facility] [address] [place], [address] GFR/1.73 sq M.predicted among non-blacks MDRD (S/P/Bld) [Vol rate/Area] 64 mL/min/{1.73_m2} Normal >60 [facility] Comment on above: Order Comment: 134 Result Comment: mL/m in/1.73m2 CKD-EPI Creatinine Equation (2020) Performed By: #### L 500.4050, L506.1000, L501.9985, L100.0100 #### [facility] [address] [place], [address] Glucose [Mass/Vol] 89 mg/dL Normal 70-99 [facility] Comment on above: Order Comment: 134 Performed By: #### L 500.4050, L506.1000, L501.9985, L100.0100 #### [facility] [address] [place], [address] Potassium [Moles/Vol] 4.5 mmol/L Normal 3.3-5.[address] [facility] Comment on above: Order Comment: 134 Performed By: #### L 500.4050, L506.1000, L501.9985, L100.0100 #### [facility] [address] [place], [address] Sodium [Moles/Vol] 140 mmol/L Normal 133-145 [facility] Comment on above: Order Comment: 134 Performed By: #### L 500.4050, L506.1000, L501.9985, L100.0100 #### [facility] [address] [place], [address] Urea nitrogen [Mass/Vol] 18 mg/dL Normal 4-19 [facility] Comment on above: Order Comment: 134 Performed By: #### L 500.4050, L506.1000, L501.9985, L100.0100 #### [facility] [address] [place], [address] Carbon dioxide, total [Moles /volume] in Central venous bloodOrdered By: Malathi Tomas on 11-26-2024 CO2 [Moles/Vol] 22.9 mmol/L 21.0-32.0 [facility] Chloride assayOrdered By: Tao Tomas on 11-26-2024 Chloride [Moles/Vol] 106 mmol/L 98-108 [facility] Glomerular filtration rate ( GFR) estimation/1.73 sq m using serum, plasma, or whole bOrdered By: Malathi Tomas on 11-26-2024 GFR/1.73 sq M.predicted among non-blacks MDRD (S/P/Bld) [Vol rate/Area] 64 mL/min/{1.73_m2} >60 [facility] Comment on above: mL/min/1.73m2 CKD-EP I Creatinine Equation (2020) Magnesiumon 11-26-2024 Magnesium [Mass/Vol] 2.2 mg/dL Normal 1.5-2.2 [facility] Comment on above: Order Comment: 134 Performed By: #### L 500.4050, L506.1000, L501.9985, L100.0100 #### [facility] [address] [place], [address] Magnesium measurement (mass/ volume)Ordered By: Malathi Tomas on 11-26-2024 Magnesium (Unsp spec) [Mass/Vol] 2.2 mg/dL 1.5-2.2 [facility] Potassium measurement (mass/ volume)Ordered By: Malathi Tomas on 11-26-2024 Potassium (Unsp spec) [Mass/Vol] 4.5 mmol/L 3.3-5.1 [facility] Serum creatinine measurement (mass/volume)Ordered By: Malathi Tomas on 11-26-2024 Creatinine [Mass/Vol] 0.95 mg/dL 0.70-1.[address] [facility] Serum glucose measurement (m ass/volume)Ordered By: Malathi Tomas on 11-26-2024 Glucose [Mass/Vol] 89 mg/dL 70-99 [facility] Serum or plasma calcium kim urement (mass/volume)Ordered By: Malathi Tomas on 11-26-2024 Calcium [Mass/Vol] 9.3 mg/dL 7.6-11.0 [facility] Serum or plasma urea nitroge n measurement (mass/volume)Ordered By: Malathi Tomas on 11-26-2024 Urea nitrogen [Mass/Vol] 18 mg/dL 4-19 [facility] Sodium levelOrdered By: Marie Tomas on 11-26-2024 Sodium [Moles/Vol] 140 mmol/L 133-145 [facility] Basic Metabolic Profile (BMP )on 11-07-2024 BUN/CRE 19.5 RATIO Normal 10-20 [facility] Comment on above: Order Comment: 134 Performed By: #### L 500.4050, L506.1000, L501.9985, L100.0100 #### [facility] [address] [place], [address] Calcium [Mass/Vol] 9.0 mg/dL Normal 7.6-11.0 [facility] Comment on above: Order Comment: 134 Performed By: #### L 500.4050, L506.1000, L501.9985, L100.0100 #### [facility] [address] [place], [address] Chloride [Moles/Vol] 103 mmol/L Normal 98-108 [facility] Comment on above: Order Comment: 134 Performed By: #### L 500.4050, L506.1000, L501.9985, L100.0100 #### [facility] [address] [place], [address] CO2 [Moles/Vol] 25.5 mmol/L Normal 21.0-32.0 [facility] Comment on above: Order Comment: 134 Performed By: #### L 500.4050, L506.1000, L501.9985, L100.0100 #### [facility] [address] [place], [address] Creatinine [Mass/Vol] 0.82 mg/dL Normal 0.70-1.[address] [facility] Comment on above: Order Comment: 134 Performed By: #### L 500.4050, L506.1000, L501.9985, L100.0100 #### [facility] [address] [place], [address] GAP 10 Normal 5-15 [facility] Comment on above: Order Comment: 134 Performed By: #### L 500.4050, L506.1000, L501.9985, L100.0100 #### [facility] [address] [place], [address] GFR/1.73 sq M.predicted among non-blacks MDRD (S/P/Bld) [Vol rate/Area] 76 mL/min/{1.73_m2} Normal >60 [facility] Comment on above: Order Comment: 134 Result Comment: mL/m in/1.73m2 CKD-EPI Creatinine Equation (2020) Performed By: #### L 500.4050, L506.1000, L501.9985, L100.0100 #### [facility] [address] [place], [address] Glucose [Mass/Vol] 79 mg/dL Normal 70-99 [facility] Comment on above: Order Comment: 134 Performed By: #### L 500.4050, L506.1000, L501.9985, L100.0100 #### [facility] [address] [place], [address] Potassium [Moles/Vol] 4.1 mmol/L Normal 3.3-5.[address] [facility] Comment on above: Order Comment: 134 Performed By: #### L 500.4050, L506.1000, L501.9985, L100.0100 #### [facility] [address] [place], [address] Sodium [Moles/Vol] 139 mmol/L Normal 133-145 [facility] Comment on above: Order Comment: 134 Performed By: #### L 500.4050, L506.1000, L501.9985, L100.0100 #### [facility] [address] [place], [address] Urea nitrogen [Mass/Vol] 16 mg/dL Normal 4-19 [facility] Comment on above: Order Comment: 134 Performed By: #### L 500.4050, L506.1000, L501.9985, L100.0100 #### [facility] [address] [place], [address] CBC W/Diff, Automatedon 06-0 4-2025 Absolute Lymph 1.04 X10 3/uL Normal 0.83-4.51 [facility] Comment on above: Order Comment: 134 Performed By: #### L 500.4050, L506.1000, L501.9985, L100.0100 #### [facility] [address] [place], [address] Absolute Neut 2.2 X10 3/uL Normal 2.0-7.7 [facility] Comment on above: Order Comment: 134 Performed By: #### L 500.4050, L506.1000, L501.9985, L100.0100 #### [facility] [address] [place], [address] Basophils/100 WBC (Bld) 0.8 % Normal 0-1 [facility] Comment on above: Order Comment: 134 Performed By: #### L 500.4050, L506.1000, L501.9985, L100.0100 #### [facility] [address] [place], [address] Eosinophils/100 WBC (Bld) 3.2 % Normal 0-5 [facility] Comment on above: Order Comment: 134 Performed By: #### L 500.4050, L506.1000, L501.9985, L100.0100 #### [facility] [address] [place], [address] Erythrocyte distribution width (RBC) [Ratio] 15.9 % High 11.6-14.6 [facility] Comment on above: Order Comment: 134 Performed By: #### L 500.4050, L506.1000, L501.9985, L100.0100 #### [facility] [address] [place], [address] Hematocrit (Bld) [Volume fraction] 34.4 % Low 37-47 [facility] Comment on above: Order Comment: 134 Performed By: #### L 500.4050, L506.1000, L501.9985, L100.0100 #### [facility] [address] [place], [address] Hemoglobin (Bld) [Mass/Vol] 11.1 g/dL Low 12.0-15.0 [facility] Comment on above: Order Comment: 134 Performed By: #### L 500.4050, L506.1000, L501.9985, L100.0100 #### [facility] [address] [place], [address] IG% 0.500 Normal 0.0-0.9 [facility] Comment on above: Order Comment: 134 Result Comment: IG% - Immature Granulocytes (promyelocytes, myelocytes and metamyelocytes) > 1% indicates that a LEFT SHIFT is Present. Performed By: #### L 500.4050, L506.1000, L501.9985, L100.0100 #### [facility] [address] [place], [address] Lymphocytes/100 WBC (Bld) 27.4 % Normal 19-41 [facility] Comment on above: Order Comment: 134 Performed By: #### L 500.4050, L506.1000, L501.9985, L100.0100 #### [facility] [address] [place], [address] MCH (RBC) [Entitic mass] 28.3 pg Normal 27.0-32.0 [facility] Comment on above: Order Comment: 134 Performed By: #### L 500.4050, L506.1000, L501.9985, L100.0100 #### [facility] [address] [place], [address] MCHC (RBC) [Mass/Vol] 32.3 g/dL Normal 32-[address] [facility] Comment on above: Order Comment: 134 Performed By: #### L 500.4050, L506.1000, L501.9985, L100.0100 #### [facility] [address] [place], [address] MCV (RBC) [Entitic vol] 87.8 fL Normal 81-99 [facility] Comment on above: Order Comment: 134 Performed By: #### L 500.4050, L506.1000, L501.9985, L100.0100 #### [facility] [address] [place], [address] Monocytes/100 WBC (Bld) 9.7 % Normal 0-10 [facility] Comment on above: Order Comment: 134 Performed By: #### L 500.4050, L506.1000, L501.9985, L100.0100 #### [facility] [address] [place], [address] Neutrophils/100 WBC (Bld) 58.4 % Normal 47-70 [facility] Comment on above: Order Comment: 134 Performed By: #### L 500.4050, L506.1000, L501.9985, L100.0100 #### [facility] [address] [place], [address] Nucleated RBC (Bld) [#/Vol] 0 10*3/uL Normal 0-5 [facility] Comment on above: Order Comment: 134 Performed By: #### L 500.4050, L506.1000, L501.9985, L100.0100 #### [facility] [address] [place], [address] Platelet mean volume (Bld) [Entitic vol] 10.7 fL Normal 6.2-12.0 [facility] Comment on above: Order Comment: 134 Performed By: #### L 500.4050, L506.1000, L501.9985, L100.0100 #### [facility] [address] [place], [address] Platelets (Bld) [#/Vol] 122 10*3/uL Low 150-450 [facility] Comment on above: Order Comment: 134 Performed By: #### L 500.4050, L506.1000, L501.9985, L100.0100 #### [facility] [address] [place], [address] RBC (Bld) [#/Vol] 3.92 10*6/uL Low 4.2-5.4 [facility] Comment on above: Order Comment: 134 Performed By: #### L 500.4050, L506.1000, L501.9985, L100.0100 #### [facility] [address] [place], [address] RDW SD 51.3 fl High 35.1-43.9 [facility] Comment on above: Order Comment: 134 Performed By: #### L 500.4050, L506.1000, L501.9985, L100.0100 #### [facility] [address] [place], [address] WBC (Bld) [#/Vol] 3.8 10*3/uL Low 4.4-11.0 [facility] Comment on above: Order Comment: 134 Performed By: #### L 500.4050, L506.1000, L501.9985, L100.0100 #### [facility] [address] [place], [address] Magnesiumon 11-07-2024 Magnesium [Mass/Vol] 2.1 mg/dL Normal 1.5-2.2 [facility] Comment on above: Order Comment: 134 Performed By: #### L 500.4050, L506.1000, L501.9985, L100.0100 #### [facility] [address] [place], [address] Basic Metabolic Profile (BMP )on 11-06-2024 BUN Normal 4-19 [facility] Comment on above: Order Comment: 134 Result Comment: QNS UTO X1 Performed By: #### L 500.4050, L506.1000, L501.9985, L100.0100 #### [facility] [address] [place], [address] BUN/CRE Normal 10-20 [facility] Comment on above: Order Comment: 134 Result Comment: QNS UTO X1 Performed By: #### L 500.4050, L506.1000, L501.9985, L100.0100 #### [facility] [address] [place], [address] Calcium Normal 7.6-11.0 [facility] Comment on above: Order Comment: 134 Result Comment: QNS UTO X1 Performed By: #### L 500.4050, L506.1000, L501.9985, L100.0100 #### [facility] [address] [place], [address] CL Normal 98-108 [facility] Comment on above: Order Comment: 134 Result Comment: QNS UTO X1 Performed By: #### L 500.4050, L506.1000, L501.9985, L100.0100 #### [facility] [address] [place], [address] CO2 Normal 21.0-32.0 [facility] Comment on above: Order Comment: 134 Result Comment: QNS UTO X1 Performed By: #### L 500.4050, L506.1000, L501.9985, L100.0100 #### [facility] [address] [place], [address] CREAT,SERUM Normal 0.70-1.20 [facility] Comment on above: Order Comment: 134 Result Comment: QNS UTO X1 Performed By: #### L 500.4050, L506.1000, L501.9985, L100.0100 #### [facility] [address] [place], [address] eGFR Normal >60 [facility] Comment on above: Order Comment: 134 Result Comment: QNS UTO X1 Performed By: #### L 500.4050, L506.1000, L501.9985, L100.0100 #### [facility] [address] [place], [address] GAP Normal 5-15 [facility] Comment on above: Order Comment: 134 Result Comment: QNS UTO X1 Performed By: #### L 500.4050, L506.1000, L501.9985, L100.0100 #### [facility] [address] [place], [address] GLU Normal 70-99 [facility] Comment on above: Order Comment: 134 Result Comment: QNS UTO X1 Performed By: #### L 500.4050, L506.1000, L501.9985, L100.0100 #### [facility] [address] [place], [address] Potassium Normal 3.3-5.1 [facility] Comment on above: Order Comment: 134 Result Comment: QNS UTO X1 Performed By: #### L 500.4050, L506.1000, L501.9985, L100.0100 #### [facility] [address] [place], [address] Basic Metabolic Profile (BMP) Normal 133-145 [facility] Comment on above: Order Comment: 134 Result Comment: QNS UTO X1 Performed By: #### L 500.4050, L506.1000, L501.9985, L100.0100 #### [facility] [address] [place], [address] CBC W/Diff, Automatedon 06-0 -2024 Absolute Neut Normal 2.0-7.7 [facility] Comment on above: Order Comment: 134 Result Comment: QNS UTO X1 Performed By: #### L 500.4050, L506.1000, L501.9985, L100.0100 #### [facility] [address] [place], [address] HCT Normal 37-47 [facility] Comment on above: Order Comment: 134 Result Comment: QNS UTO X1 Performed By: #### L 500.4050, L506.1000, L501.9985, L100.0100 #### [facility] [address] [place], [address] HGB Normal 12.0-15.0 [facility] Comment on above: Order Comment: 134 Result Comment: QNS UTO X1 Performed By: #### L 500.4050, L506.1000, L501.9985, L100.0100 #### [facility] [address] [place], [address] MCH Normal 27.0-32.0 [facility] Comment on above: Order Comment: 134 Result Comment: QNS UTO X1 Performed By: #### L 500.4050, L506.1000, L501.9985, L100.0100 #### [facility] [address] [place], [address] MCHC Normal 32-36 [facility] Comment on above: Order Comment: 134 Result Comment: QNS UTO X1 Performed By: #### L 500.4050, L506.1000, L501.9985, L100.0100 #### [facility] [address] [place], [address] MCV Normal 81-99 [facility] Comment on above: Order Comment: 134 Result Comment: QNS UTO X1 Performed By: #### L 500.4050, L506.1000, L501.9985, L100.0100 #### [facility] [address] [place], [address] NEUT% Normal 47-70 [facility] Comment on above: Order Comment: 134 Result Comment: QNS UTO X1 Performed By: #### L 500.4050, L506.1000, L501.9985, L100.0100 #### [facility] [address] [place], [address] PLT Normal 150-450 [facility] Comment on above: Order Comment: 134 Result Comment: QNS UTO X1 Performed By: #### L 500.4050, L506.1000, L501.9985, L100.0100 #### [facility] [address] [place], [address] RBC Normal 4.2-5.4 [facility] Comment on above: Order Comment: 134 Result Comment: QNS UTO X1 Performed By: #### L 500.4050, L506.1000, L501.9985, L100.0100 #### [facility] [address] [place], [address] RDW CV Normal 11.6-14.6 [facility] Comment on above: Order Comment: 134 Result Comment: QNS UTO X1 Performed By: #### L 500.4050, L506.1000, L501.9985, L100.0100 #### [facility] [address] [place], [address] RDW SD Normal 35.1-43.9 [facility] Comment on above: Order Comment: 134 Result Comment: QNS UTO X1 Performed By: #### L 500.4050, L506.1000, L501.9985, L100.0100 #### [facility] [address] [place], [address] WBC Normal 4.4-11.0 [facility] Comment on above: Order Comment: 134 Result Comment: QNS UTO X1 Performed By: #### L 500.4050, L506.1000, L501.9985, L100.0100 #### [facility] [address] [place], [address] Lamotrigine (Lamictal) Level on 11-02-2024 LAMOTRIGINE 8.5 ug/mL Normal 2.0-20.0 [facility] Comment on above: Order Comment: 134 Result Comment: Dete ction Limit = 1.0 Performed at: [address] [id number] [employer]: Cody Llanos MD, Phone: [phone] Performed By: #### L 500.4050, L506.1000, L501.9985, L100.0100 #### [facility] [address] [place], [address] Trileptal-Oxcarbazepineon OXCARBAZEPINE 5 ug/mL Low 10-35 [facility] Comment on above: Order Comment: 134 Result Comment: This test was developed and its performance characteristics determined by [facility]. It has not been cleared or approved by the Food and Drug Administration. Detection Limit = 1 Performed By: #### L 500.4050, L506.1000, L501.9985, L100.0100 #### [facility] [address] [place], [address] CRPon 11-01-2024 C-REACTIVE PROT 14.10 mg/L High 0.0-3.0 [facility] Comment on above: Performed By: #### L 501.6710, L501.1400 #### [facility] [address] [place], [address] Uric Acidon 11-01-2024 URIC 5.6 mg/dL Normal 2.6-6.0 [facility] Comment on above: Result Comment: The drugs N-Acetylcysteine and Metamizole may falsely depress this assay. Performed By: #### L 501.6710, L501.1400 #### [facility] [address] [place], [address] Hemoglobin A1con 10-30-2024 HbA1c (Bld) [Mass fraction] 7.1 % High <=5.6 [facility] Comment on above: Order Comment: 134 Result Comment: Norm al < 5.7 % Prediabetic 5.7 - 6.4 % Diabetic >or= 6.5 % Please note range changes. Performed By: #### L 500.4050, L506.1000, L501.9985, L100.0100 #### [facility] [address] [place], [address] Lipid Profileon 10-30-2024 CHOL:HDL 1.80 Normal [facility] Comment on above: Order Comment: 134 Performed By: #### L 500.4050, L506.1000, L501.9985, L100.0100 #### [facility] [address] [place], [address] Cholesterol [Mass/Vol] 99 mg/dL Normal <=200 [facility] Comment on above: Order Comment: 134 Result Comment: Chol esterol level, Desirable <200 mg/dL Borderline high cholesterol 200-239 mg/dL High cholesterol >=240 mg/dL Recommendations of the NCEP Adult Treatment Panel for the following risk-cutoff thresholds for the [place] population. Performed By: #### L 500.4050, L506.1000, L501.9985, L100.0100 #### [facility] [address] [place], [address] Cholesterol in HDL [Mass/Vol] 55 mg/dL Normal [facility] Comment on above: Order Comment: 134 Result Comment: Linda onal Cholesterol Education Program (NCEP) guidelines: <40 mg/dL: Low HDL-cholesterol (major risk factor for CHD) >= 60 mg/dL: High HDL-cholesterol (negative risk factor for CHD) HDL-cholesterol is affected by a number of factors, e.g. smoking, exercise, hormones, sex and age. Performed By: #### L 500.4050, L506.1000, L501.9985, L100.0100 #### [facility] [address] [place], [address] Cholesterol in LDL [Mass/Vol] 34 mg/dL Normal [facility] Comment on above: Order Comment: 134 Result Comment: Bord dfevsv=058-639 mg/dL Higher Zynh=177 mg/dL or greater Performed By: #### L 500.4050, L506.1000, L501.9985, L100.0100 #### [facility] [address] [place], [address] Cholesterol in VLDL [Mass/Vol] 10 mg/dL Normal 5-40 [facility] Comment on above: Order Comment: 134 Performed By: #### L 500.4050, L506.1000, L501.9985, L100.0100 #### [facility] [address] [place], [address] Triglyceride [Mass/Vol] 51 mg/dL Normal [facility] Comment on above: Order Comment: 134 Result Comment: The drugs N-Acetylcysteine and Metamizole may falsely depress this assay. Normal range: <150 mg/dL Borderline High: 150-199 mg/dL High: 200-499 mg/dL Very High: >500 mg/dL Performed By: #### L 500.4050, L506.1000, L501.9985, L100.0100 #### [facility] [address] [place], [address] Vitamin D,25 Hydroxyon 10-30 Vitamin D 25-OH 22.0 ng/mL Low 30-100 [facility] Comment on above: Order Comment: 134 Result Comment: Maricarmen min D Status Deficiency: <20 ng/mL (50nmol/L) Insufficiency: 20-30 ng/mL (50-75 nmol/L) Sufficiency: 30-100 ng/mL (75-250 nmol/L) Toxicity: >100 ng/mL (>250 nmol/L) Performed By: #### L 500.4050, L506.1000, L501.9985, L100.0100 #### [facility] [address] [place], [address] CBC-Complete Blood Cnt No Di ffon 10-25-2024 Erythrocyte distribution width (RBC) [Ratio] 15.7 % High 11.6-14.6 [facility] Comment on above: Order Comment: 134 Performed By: #### L 500.4050, L506.1000, L501.9985, L100.0100 #### [facility] [address] [place], [address] Hematocrit (Bld) [Volume fraction] 39.5 % Normal 37-47 [facility] Comment on above: Order Comment: 134 Performed By: #### L 500.4050, L506.1000, L501.9985, L100.0100 #### [facility] [address] [place], [address] Hemoglobin (Bld) [Mass/Vol] 13.0 g/dL Normal 12.0-15.0 [facility] Comment on above: Order Comment: 134 Performed By: #### L 500.4050, L506.1000, L501.9985, L100.0100 #### [facility] [address] [place], [address] MCH (RBC) [Entitic mass] 29.1 pg Normal 27.0-32.0 [facility] Comment on above: Order Comment: 134 Performed By: #### L 500.4050, L506.1000, L501.9985, L100.0100 #### [facility] [address] [place], [address] MCHC (RBC) [Mass/Vol] 32.9 g/dL Normal 32-[address] [facility] Comment on above: Order Comment: 134 Performed By: #### L 500.4050, L506.1000, L501.9985, L100.0100 #### [facility] [address] [place], [address] MCV (RBC) [Entitic vol] 88.4 fL Normal 81-99 [facility] Comment on above: Order Comment: 134 Performed By: #### L 500.4050, L506.1000, L501.9985, L100.0100 #### [facility] [address] [place], [address] Platelet mean volume (Bld) [Entitic vol] 11.9 fL Normal 6.2-12.0 [facility] Comment on above: Order Comment: 134 Performed By: #### L 500.4050, L506.1000, L501.9985, L100.0100 #### [facility] [address] [place], [address] Platelets (Bld) [#/Vol] 104 10*3/uL Low 150-450 [facility] Comment on above: Order Comment: 134 Performed By: #### L 500.4050, L506.1000, L501.9985, L100.0100 #### [facility] [address] [place], [address] RBC (Bld) [#/Vol] 4.47 10*6/uL Normal 4.2-5.4 [facility] Comment on above: Order Comment: 134 Performed By: #### L 500.4050, L506.1000, L501.9985, L100.0100 #### [facility] [address] [place], [address] RDW SD 51.5 fl High 35.1-43.9 [facility] Comment on above: Order Comment: 134 Performed By: #### L 500.4050, L506.1000, L501.9985, L100.0100 #### [facility] [address] [place], [address] WBC (Bld) [#/Vol] 6.3 10*3/uL Normal 4.4-11.0 [facility] Comment on above: Order Comment: 134 Performed By: #### L 500.4050, L506.1000, L501.9985, L100.0100 #### [facility] [address] [place], [address] Comprehensive Metabolic Prof [facility] 10-25-2024 Albumin [Mass/Vol] 3.8 g/dL Normal 3.4-4.8 [facility] Comment on above: Order Comment: 134 Performed By: #### L 500.4050, L506.1000, L501.9985, L100.0100 #### [facility] [address] [place], [address] Albumin/Globulin [Mass ratio] 0.9 {ratio} Normal 0.9-2.4 [facility] Comment on above: Order Comment: 134 Performed By: #### L 500.4050, L506.1000, L501.9985, L100.0100 #### [facility] [address] [place], [address] ALK PHOS 117 U/L High 35-104 [facility] Comment on above: Order Comment: 134 Performed By: #### L 500.4050, L506.1000, L501.9985, L100.0100 #### [facility] [address] [place], [address] ALT [Catalytic activity/Vol] 37 U/L High <=34 [facility] Comment on above: Order Comment: 134 Performed By: #### L 500.4050, L506.1000, L501.9985, L100.0100 #### [facility] [address] [place], [address] AST [Catalytic activity/Vol] 44 U/L High <=31 [facility] Comment on above: Order Comment: 134 Performed By: #### L 500.4050, L506.1000, L501.9985, L100.0100 #### [facility] [address] [place], [address] Bilirubin [Mass/Vol] 0.50 mg/dL Normal 0.00-1.30 [facility] Comment on above: Order Comment: 134 Performed By: #### L 500.4050, L506.1000, L501.9985, L100.0100 #### [facility] [address] [place], [address] BUN/CRE 25.5 RATIO High 10-20 [facility] Comment on above: Order Comment: 134 Performed By: #### L 500.4050, L506.1000, L501.9985, L100.0100 #### [facility] [address] [place], [address] Calcium [Mass/Vol] 9.4 mg/dL Normal 7.6-11.0 [facility] Comment on above: Order Comment: 134 Performed By: #### L 500.4050, L506.1000, L501.9985, L100.0100 #### [facility] [address] [place], [address] Chloride [Moles/Vol] 101 mmol/L Normal 98-108 [facility] Comment on above: Order Comment: 134 Performed By: #### L 500.4050, L506.1000, L501.9985, L100.0100 #### [facility] [address] [place], [address] CO2 [Moles/Vol] 23.5 mmol/L Normal 21.0-32.0 [facility] Comment on above: Order Comment: 134 Performed By: #### L 500.4050, L506.1000, L501.9985, L100.0100 #### [facility] [address] [place], [address] Creatinine [Mass/Vol] 0.93 mg/dL Normal 0.70-1.[address] [facility] Comment on above: Order Comment: 134 Performed By: #### L 500.4050, L506.1000, L501.9985, L100.0100 #### [facility] [address] [place], [address] GAP 10 Normal 5-15 [facility] Comment on above: Order Comment: 134 Performed By: #### L 500.4050, L506.1000, L501.9985, L100.0100 #### [facility] [address] [place], [address] GFR/1.73 sq M.predicted among non-blacks MDRD (S/P/Bld) [Vol rate/Area] 65 mL/min/{1.73_m2} Normal >60 [facility] Comment on above: Order Comment: 134 Result Comment: mL/m in/1.73m2 CKD-EPI Creatinine Equation (2020) Performed By: #### L 500.4050, L506.1000, L501.9985, L100.0100 #### [facility] [address] [place], [address] Globulin (S) [Mass/Vol] 4.4 g/dL High 2.2-4.2 [facility] Comment on above: Order Comment: 134 Performed By: #### L 500.4050, L506.1000, L501.9985, L100.0100 #### [facility] [address] [place], [address] Glucose [Mass/Vol] 147 mg/dL High 70-99 [facility] Comment on above: Order Comment: 134 Performed By: #### L 500.4050, L506.1000, L501.9985, L100.0100 #### [facility] [address] [place], [address] Potassium [Moles/Vol] 4.7 mmol/L Normal 3.3-5.[address] [facility] Comment on above: Order Comment: 134 Performed By: #### L 500.4050, L506.1000, L501.9985, L100.0100 #### [facility] [address] [place], [address] Sodium [Moles/Vol] 134 mmol/L Normal 133-145 [facility] Comment on above: Order Comment: 134 Performed By: #### L 500.4050, L506.1000, L501.9985, L100.0100 #### [facility] [address] [place], [address] T PROT 8.2 g/dL Normal 5.9-8.4 [facility] Comment on above: Order Comment: 134 Performed By: #### L 500.4050, L506.1000, L501.9985, L100.0100 #### [facility] [address] [place], [address] Urea nitrogen [Mass/Vol] 24 mg/dL High 4-19 [facility] Comment on above: Order Comment: 134 Performed By: #### L 500.4050, L506.1000, L501.9985, L100.0100 #### [facility] [address] [place], [address] Urine Cultureon 10-14-2024 [facility]RC Urine Culture Urine Culture Escherichia coli [place] Count 80,000-100,000 Escherichia coli: REACTION Ampicillin Islt [...] TMP SMX Islt TRANG <=20 S Normal [facility] Comment on above: Performed By: #### L 501.080 #### [facility] [place], [address] Basic Metabolic Profile (BMP )on 10-12-2024 BUN Normal 4-19 [facility] Comment on above: Result Comment: Canc elled via OM: Order cancelled - Patient discharged Performed By: #### L 500.4050, L506.1000, L501.9985, L100.0100 #### [facility] [address] [facility] [place], [address] BUN/CRE Normal 10-20 [facility] Comment on above: Result Comment: Canc elled via OM: Order cancelled - Patient discharged Performed By: #### L 500.4050, L506.1000, L501.9985, L100.0100 #### [facility] [address] [place], [address] Calcium Normal 7.6-11.0 [facility] Comment on above: Result Comment: Canc elled via OM: Order cancelled - Patient discharged Performed By: #### L 500.4050, L506.1000, L501.9985, L100.0100 #### [facility] [address] [place], [address] CL Normal 98-108 [facility] Comment on above: Result Comment: Canc elled via OM: Order cancelled - Patient discharged Performed By: #### L 500.4050, L506.1000, L501.9985, L100.0100 #### [facility] [address] [place], [address] CO2 Normal 21.0-32.0 [facility] Comment on above: Result Comment: Canc elled via OM: Order cancelled - Patient discharged Performed By: #### L 500.4050, L506.1000, L501.9985, L100.0100 #### [facility] [address] [place], [address] CREAT,SERUM Normal 0.70-1.20 [facility] Comment on above: Result Comment: Canc elled via OM: Order cancelled - Patient discharged Performed By: #### L 500.4050, L506.1000, L501.9985, L100.0100 #### [facility] [address] [place], [address] eGFR Normal >60 [facility] Comment on above: Result Comment: Canc elled via OM: Order cancelled - Patient discharged Performed By: #### L 500.4050, L506.1000, L501.9985, L100.0100 #### [facility] [address] [place], [address] GAP Normal 5-15 [facility] Comment on above: Result Comment: Canc elled via OM: Order cancelled - Patient discharged Performed By: #### L 500.4050, L506.1000, L501.9985, L100.0100 #### [facility] [address] [place], [address] GLU Normal 70-99 [facility] Comment on above: Result Comment: Canc elled via OM: Order cancelled - Patient discharged Performed By: #### L 500.4050, L506.1000, L501.9985, L100.0100 #### [facility] [address] [place], [address] Potassium Normal 3.3-5.1 [facility] Comment on above: Result Comment: Canc elled via OM: Order cancelled - Patient discharged Performed By: #### L 500.4050, L506.1000, L501.9985, L100.0100 #### [facility] [address] [place], [address] Basic Metabolic Profile (BMP) Normal 133-145 [facility] Comment on above: Result Comment: Canc elled via OM: Order cancelled - Patient discharged Performed By: #### L 500.4050, L506.1000, L501.9985, L100.0100 #### [facility] [address] [place], [address] CBC W/Diff, Automatedon 05-0 -2024 Absolute Neut Normal 2.0-7.7 [facility] Comment on above: Result Comment: Canc elled via OM: Order cancelled - Patient discharged Performed By: #### L 500.4050, L506.1000, L501.9985, L100.0100 #### [facility] [address] [place], [address] HCT Normal 37-47 [facility] Comment on above: Result Comment: Canc elled via OM: Order cancelled - Patient discharged Performed By: #### L 500.4050, L506.1000, L501.9985, L100.0100 #### [facility] [address] [place], [address] HGB Normal 12.0-15.0 [facility] Comment on above: Result Comment: Canc elled via OM: Order cancelled - Patient discharged Performed By: #### L 500.4050, L506.1000, L501.9985, L100.0100 #### [facility] [address] [place], [address] MCH Normal 27.0-32.0 [facility] Comment on above: Result Comment: Canc elled via OM: Order cancelled - Patient discharged Performed By: #### L 500.4050, L506.1000, L501.9985, L100.0100 #### [facility] [address] [place], [address] MCHC Normal 32-36 [facility] Comment on above: Result Comment: Canc elled via OM: Order cancelled - Patient discharged Performed By: #### L 500.4050, L506.1000, L501.9985, L100.0100 #### [facility] [address] [place], [address] MCV Normal 81-99 [facility] Comment on above: Result Comment: Canc elled via OM: Order cancelled - Patient discharged Performed By: #### L 500.4050, L506.1000, L501.9985, L100.0100 #### [facility] [address] [place], [address] NEUT% Normal 47-70 [facility] Comment on above: Result Comment: Canc elled via OM: Order cancelled - Patient discharged Performed By: #### L 500.4050, L506.1000, L501.9985, L100.0100 #### [facility] [address] [place], [address] PLT Normal 150-450 [facility] Comment on above: Result Comment: Canc elled via OM: Order cancelled - Patient discharged Performed By: #### L 500.4050, L506.1000, L501.9985, L100.0100 #### [facility] [address] [place], [address] RBC Normal 4.2-5.4 [facility] Comment on above: Result Comment: Canc elled via OM: Order cancelled - Patient discharged Performed By: #### L 500.4050, L506.1000, L501.9985, L100.0100 #### [facility] [address] [place], [address] RDW CV Normal 11.6-14.6 [facility] Comment on above: Result Comment: Canc elled via OM: Order cancelled - Patient discharged Performed By: #### L 500.4050, L506.1000, L501.9985, L100.0100 #### [facility] [address] [place], [address] RDW SD Normal 35.1-43.9 [facility] Comment on above: Result Comment: Canc elled via OM: Order cancelled - Patient discharged Performed By: #### L 500.4050, L506.1000, L501.9985, L100.0100 #### [facility] [address] [place], [address] WBC Normal 4.4-11.0 [facility] Comment on above: Result Comment: Canc elled via OM: Order cancelled - Patient discharged Performed By: #### L 500.4050, L506.1000, L501.9985, L100.0100 #### [facility] [address] [place], [address] Absolute lymphocyte countOrd ered By: Tyrell Page on 10-11-2024 Lymphocytes Auto (Unsp spec) [#/Vol] 1.20 10*3/uL 0.83-4.51 [facility] Absolute neutrophil countOrd ered By: Tyrell Page on 10-11-2024 Neutrophils (Bld) [#/Vol] 2.6 10*3/uL 2.0-7.7 [facility] Anion gap in Serum or Plasma Ordered By: Tyrell Page on 10-11-2024 Anion gap [Moles/Vol] 10 mmol/L 5-[address] [facility] Automated lymphocyte count a s percentage of total leukocytesOrdered By: Tyrell Page on 10-11-2024 Lymphocytes/100 WBC Auto (Unsp spec) 26.8 % 19-41 [facility] BUN/creatinine ratioOrdered By: Tyrell Page on 10-11-2024 Urea nitrogen/Creatinine [Mass ratio] 28.3 mg/mg High 10-20 [facility] Basic Metabolic Profile (BMP )on 10-11-2024 BUN/CRE 28.3 RATIO High - [facility] Comment on above: Performed By: #### L 500.4050, L506.1000, L501.9985, L100.0100 #### [facility] [address] [place], [address] Calcium [Mass/Vol] 9.2 mg/dL Normal 7.6-11.0 [facility] Comment on above: Performed By: #### L 500.4050, L506.1000, L501.9985, L100.0100 #### [facility] [address] [place], [address] Chloride [Moles/Vol] 108 mmol/L Normal 98-108 [facility] Comment on above: Performed By: #### L 500.4050, L506.1000, L501.9985, L100.0100 #### [facility] [address] [place], [address] CO2 [Moles/Vol] 20.7 mmol/L Low 21.0-32.0 [facility] Comment on above: Performed By: #### L 500.4050, L506.1000, L501.9985, L100.0100 #### [facility] [address] [place], [address] Creatinine [Mass/Vol] 0.76 mg/dL Normal 0.70-1.[address] [facility] Comment on above: Performed By: #### L 500.4050, L506.1000, L501.9985, L100.0100 #### [facility] [address] [place], [address] ECRCL 89.89 ml/min Normal 50-250 [facility] Comment on above: Performed By: #### L 500.4050, L506.1000, L501.9985, L100.0100 #### [facility] [address] [place], [address] GAP 10 Normal 5-15 [facility] Comment on above: Performed By: #### L 500.4050, L506.1000, L501.9985, L100.0100 #### [facility] [address] [place], [address] GFR/1.73 sq M.predicted among non-blacks MDRD (S/P/Bld) [Vol rate/Area] 84 mL/min/{1.73_m2} Normal >60 [facility] Comment on above: Result Comment: mL/m in/1.73m2 CKD-EPI Creatinine Equation (2020) Performed By: #### L 500.4050, L506.1000, L501.9985, L100.0100 #### [facility] [address] [place], [address] Glucose [Mass/Vol] 131 mg/dL High 70-99 [facility] Comment on above: Performed By: #### L 500.4050, L506.1000, L501.9985, L100.0100 #### [facility] [address] [place], [address] Potassium [Moles/Vol] 3.9 mmol/L Normal 3.3-5.[address] [facility] Comment on above: Performed By: #### L 500.4050, L506.1000, L501.9985, L100.0100 #### [facility] [address] [place], [address] Sodium [Moles/Vol] 139 mmol/L Normal 133-145 [facility] Comment on above: Performed By: #### L 500.4050, L506.1000, L501.9985, L100.0100 #### [facility] [address] [place], [address] Urea nitrogen [Mass/Vol] 21 mg/dL High 4-19 [facility] Comment on above: Performed By: #### L 500.4050, L506.1000, L501.9985, L100.0100 #### [facility] [address] [place], [address] Basophil percentageOrdered B y: Tyrell Page on 10-11-2024 Basophils/100 WBC (Bld) 0.7 % 0-1 [facility] Bedside Glucoseon 10-11-2024 FINGERSTICK GLU 137 mg/dL High 74-106 [facility] Comment on above: Result Comment: ALINA ADAMSENT OF PATIENT CARE PER NURSING PROTOCOL Performed By: #### L 500.4050, L506.1000, L501.9985, L100.0100 #### [facility] [address] [place], [address] CBC W/Diff, Automatedon 050 PLT EST SLT DEC Normal ADEQ [facility] Comment on above: Performed By: #### L 500.4050, L506.1000, L501.9985, L100.0100 #### [facility] [address] [place], [address] Carbon dioxide, total [Moles /volume] in Central venous bloodOrdered By: Tyrell Page on 10-11-2024 CO2 [Moles/Vol] 20.7 mmol/L Low 21.0-32.0 [facility] Chloride assayOrdered By: Arabella Page on 10-11-2024 Chloride [Moles/Vol] 108 mmol/L 98-108 [facility] Eosinophil percentageOrdered By: Tyrell Page on 10-11-2024 Eosinophils/100 WBC (Bld) 5.1 % High 0-5 [facility] Erythrocyte distribution wid th ratioOrdered By: Tyrell Page on 10-11-2024 Erythrocyte distribution width (RBC) [Ratio] 16.0 % High 11.6-14.6 [facility] Erythrocyte distribution wid th standard deviationOrdered By: Tyrell Page on 10-11-2024 Erythrocyte distribution width (RBC) [Ratio] 50.8 fl High 35.1-43.9 [facility] Glomerular filtration rate ( GFR) estimation/1.73 sq m using serum, plasma, or whole bOrdered By: Tyrell Page on 10-11-2024 GFR/1.73 sq M.predicted among non-blacks MDRD (S/P/Bld) [Vol rate/Area] 84 mL/min/{1.73_m2} >60 [facility] Comment on above: mL/min/1.73m2 CKD-EP I Creatinine Equation (2020) [facility] deOrdered By: Tyrell Page on 10-11-2024 Glucose [Mass/Vol] 137 mg/dL High 74-106 [facility] Comment on above: MANAGEMENT OF PATIEN T CARE PER NURSING PROTOCOL Hematocrit Auto (Bld) [Volum e fraction]Ordered By: Tyrell Page on 10-11-2024 Hematocrit (Bld) [Volume fraction] 34.0 % Low 37-47 [facility] Hemoglobin measurementOrdere d By: Tyrell Page on 10-11-2024 Hemoglobin (Bld) [Mass/Vol] 11.3 g/dL Low 12.0-15.0 [facility] Immature granulocytes/100 WB C Auto (Bld)Ordered By: Tyrell Page on 10-11-2024 Immature granulocytes/100 WBC (Bld) 0.200 % 0.0-0.9 [facility] Comment on above: IG% - Immature Granu locytes (promyelocytes, myelocytes and metamyelocytes) > 1% indicates that a LEFT SHIFT is Present. MCV (mean corpuscular volume ) determinationOrdered By: Tyrell Page on 10-11-2024 MCV (RBC) [Entitic vol] 86.7 fL 81-99 [facility] Magnesiumon 10-11-2024 Magnesium [Mass/Vol] 2.1 mg/dL Normal 1.5-2.2 [facility] Comment on above: Performed By: #### L 506.0200 #### [facility] [address] [place], [place], [address] Magnesium measurement (mass/ volume)Ordered By: Tyrell Page on 10-11-2024 Magnesium (Unsp spec) [Mass/Vol] 2.1 mg/dL 1.5-2.2 [facility] Mean corpuscular hemoglobin (MCH) determinationOrdered By: Tyrell Page on 10-11-2024 MCH (RBC) [Entitic mass] 28.8 pg 27.0-32.0 [facility] Mean corpuscular hemoglobin concentration (MCHC) determinationOrdered By: Tyrell Page on 10-11-2024 MCHC (RBC) [Mass/Vol] 33.2 g/dL 32-[address] [facility] Mean platelet volume determi nationOrdered By: Tyrell Page on 10-11-2024 Platelet mean volume (Bld) [Entitic vol] 11.1 fL 6.2-12.0 [facility] Monocyte percentageOrdered B y: Tyrell Page on 10-11-2024 Monocytes/100 WBC (Bld) 9.8 % 0-10 [facility] Neutrophil percentageOrdered By: Tyrell Page on 10-11-2024 Neutrophils/100 WBC (Bld) 57.4 % 47-70 [facility] Nucleated red blood cell per centageOrdered By: Tyrell Page on 10-11-2024 Nucleated RBC/100 WBC (Bld) [Ratio] 0 % 0-5 [facility] Phosphoruson 10-11-2024 Phosphate [Mass/Vol] 3.7 mg/dL Normal 2.7-4.5 [facility] Comment on above: Performed By: #### L 506.0200 #### [facility] [address] [place], [place], [address] Platelet countOrdered By: Arabella Page on 10-11-2024 Platelets (Bld) [#/Vol] 95 10*3/uL Low 150-450 [facility] Platelet estimateOrdered By: Tyrell Page on 10-11-2024 Platelets LM Ql (Bld) SLT DEC ADEQ [facility] Potassium measurement (mass/ volume)Ordered By: Tyrell Page on 10-11-2024 Potassium (Unsp spec) [Mass/Vol] 3.9 mmol/L 3.3-5.1 [facility] RBC Auto (Bld) [#/Vol]Ordere d By: Tyrell Page on 10-11-2024 RBC (Bld) [#/Vol] 3.92 10*6/uL Low 4.2-5.4 [facility] Serum creatinine measurement (mass/volume)Ordered By: Tyrell Page on 10-11-2024 Creatinine [Mass/Vol] 0.76 mg/dL 0.70-1.[address] [facility] Serum glucose measurement (m ass/volume)Ordered By: Tyrell Page on 10-11-2024 Glucose [Mass/Vol] 131 mg/dL High 70-99 [facility] Serum or plasma calcium kim urement (mass/volume)Ordered By: yTrell Page on 10-11-2024 Calcium [Mass/Vol] 9.2 mg/dL 7.6-11.0 [facility] Serum or plasma urea nitroge n measurement (mass/volume)Ordered By: Tyrell Pgae on 10-11-2024 Urea nitrogen [Mass/Vol] 21 mg/dL High 4-19 [facility] Sodium levelOrdered By: Nikunj Page on 10-11-2024 Sodium [Moles/Vol] 139 mmol/L 133-145 [facility] White blood cell (WBC) count Ordered By: Tyrell Page on 10-11-2024 WBC (Bld) [#/Vol] 4.5 10*3/uL 4.4-11.0 [facility] Bedside Glucoseon 10-10-2024 FINGERSTICK GLU 159 mg/dL High 74-106 [facility] Comment on above: Result Comment: ALINA GABRIEL OF PATIENT CARE PER NURSING PROTOCOL Performed By: #### L 500.4050, L506.1000, L501.9985, L100.0100 #### [facility] [address] [place], [address] FINGERSTICK GLU 196 mg/dL High 74-106 [facility] Comment on above: Result Comment: ALINA GEMENT OF PATIENT CARE PER NURSING PROTOCOL Performed By: #### L 500.4050, L506.1000, L501.9985, L100.0100 #### [facility] [address] [place], [address] FINGERSTICK GLU 165 mg/dL High 74-106 [facility] Comment on above: Result Comment: ALINA GEMENT OF PATIENT CARE PER NURSING PROTOCOL Performed By: #### L 501.080 #### [facility] [address] [place], [address] FINGERSTICK GLU 159 mg/dL High -106 [facility] Comment on above: Result Comment: ALINA GEMENT OF PATIENT CARE PER NURSING PROTOCOL Performed By: #### L 500.4050, L506.1000, L501.9985, L100.0100 #### [facility] [address] [place], [address] FINGERSTICK GLU 148 mg/dL High 74-106 [facility] Comment on above: Result Comment: ALINA GEMENT OF PATIENT CARE PER NURSING PROTOCOL Performed By: #### L 501.080 #### [facility] [address] [place], [address] Bilirubin, totalOrdered By: Missael Lomeli on 10-10-2024 Bilirubin [Mass/Vol] 0.68 mg/dL 0.00-1.30 [facility] CBC W/Diff, Automatedon 050 Absolute Lymph 1.03 X10 3/uL Normal 0.83-4.51 [facility] Comment on above: Performed By: #### L 506.0200 #### [facility] [address] [place], [address] Absolute Neut 3.4 X10 3/uL Normal 2.0-7.7 [facility] Comment on above: Performed By: #### L 506.0200 #### [facility] [address] [place], [address] Basophils/100 WBC (Bld) 0.6 % Normal 0-1 [facility] Comment on above: Performed By: #### L 506.0200 #### [facility] [address] [place], [address] Eosinophils/100 WBC (Bld) 5.1 % High 0-5 [facility] Comment on above: Performed By: #### L 506.0200 #### [facility] [address] [place], [address] Erythrocyte distribution width (RBC) [Ratio] 15.9 % High 11.6-14.6 [facility] Comment on above: Performed By: #### L 506.0200 #### [facility] [address] [place], [address] Hematocrit (Bld) [Volume fraction] 37.6 % Normal 37-47 [facility] Comment on above: Performed By: #### L 506.0200 #### [facility] [address] [place], [address] Hemoglobin (Bld) [Mass/Vol] 12.3 g/dL Normal 12.0-15.0 [facility] Comment on above: Performed By: #### L 506.0200 #### [facility] [address] [place], [address] IG% 0.200 Normal 0.0-0.9 [facility] Comment on above: Result Comment: IG% - Immature Granulocytes (promyelocytes, myelocytes and metamyelocytes) > 1% indicates that a LEFT SHIFT is Present. Performed By: #### L 506.0200 #### [facility] [address] [place], [address] Lymphocytes/100 WBC (Bld) 19.6 % Normal 19-41 [facility] Comment on above: Performed By: #### L 506.0200 #### [facility] [address] [place], [address] MCH (RBC) [Entitic mass] 28.8 pg Normal 27.0-32.0 [facility] Comment on above: Performed By: #### L 506.0200 #### [facility] [address] [place], [address] MCHC (RBC) [Mass/Vol] 32.7 g/dL Normal 32-[address] [facility] Comment on above: Performed By: #### L 506.0200 #### [facility] [address] [place], [address] MCV (RBC) [Entitic vol] 88.1 fL Normal 81-99 [facility] Comment on above: Performed By: #### L 506.0200 #### [facility] [address] [place], [address] Monocytes/100 WBC (Bld) 9.1 % Normal 0-10 [facility] Comment on above: Performed By: #### L 506.0200 #### [facility] [address] [place], [address] Neutrophils/100 WBC (Bld) 65.4 % Normal 47-70 [facility] Comment on above: Performed By: #### L 506.0200 #### [facility] [address] [place], [address] Nucleated RBC (Bld) [#/Vol] 0 10*3/uL Normal 0-5 [facility] Comment on above: Performed By: #### L 506.0200 #### [facility] [address] [place], [address] Platelet mean volume (Bld) [Entitic vol] 11.7 fL Normal 6.2-12.0 [facility] Comment on above: Performed By: #### L 506.0200 #### [facility] [address] [place], [address] Platelets (Bld) [#/Vol] 100 10*3/uL Low 150-450 [facility] Comment on above: Performed By: #### L 506.0200 #### [facility] [address] [place], [address] RBC (Bld) [#/Vol] 4.27 10*6/uL Normal 4.2-5.4 [facility] Comment on above: Performed By: #### L 506.0200 #### [facility] [address] [place], [address] RDW SD 51.4 fl High 35.1-43.9 [facility] Comment on above: Performed By: #### L 506.0200 #### [facility] [address] [place], [address] WBC (Bld) [#/Vol] 5.3 10*3/uL Normal 4.4-11.0 [facility] Comment on above: Performed By: #### L 506.0200 #### [facility] [address] [place], [address] Calculated very low density lipoprotein (VLDL) cholesterol measurementOrdered By: Missael Lomeli on 10-10-2024 Calculated very low density lipoprotein (VLDL) cholesterol measurement 16 mg/dL 5-40 [facility] Comprehensive Metabolic Prof ilon 10-10-2024 Albumin [Mass/Vol] 3.5 g/dL Normal 3.4-4.8 [facility] Comment on above: Performed By: #### L 503.0106 #### [facility] [address] [place], [address] Albumin/Globulin [Mass ratio] 1.0 {ratio} Normal 0.9-2.4 [facility] Comment on above: Performed By: #### L 503.0106 #### [facility] [address] [place], [address] ALK PHOS 122 U/L High 35-104 [facility] Comment on above: Performed By: #### L 503.0106 #### [facility] [address] [place], [address] ALT [Catalytic activity/Vol] 23 U/L Normal <=34 [facility] Comment on above: Performed By: #### L 503.0106 #### [facility] [address] [place], [address] AST [Catalytic activity/Vol] 37 U/L High <=31 [facility] Comment on above: Result Comment: Hemo lysis present, Results??could be affected. ?? Performed By: #### L 503.0106 #### [facility] [address] [place], [address] Bilirubin [Mass/Vol] 0.68 mg/dL Normal 0.00-1.30 [facility] Comment on above: Performed By: #### L 503.0106 #### [facility] [address] [place], [address] BUN/CRE 25.4 RATIO High 10-20 [facility] Comment on above: Performed By: #### L 503.0106 #### [facility] [address] [place], [address] Calcium [Mass/Vol] 8.9 mg/dL Normal 7.6-11.0 [facility] Comment on above: Performed By: #### L 503.0106 #### [facility] [address] [place], [address] Chloride [Moles/Vol] 106 mmol/L Normal 98-108 [facility] Comment on above: Performed By: #### L 503.0106 #### [facility] [address] [place], [address] CO2 [Moles/Vol] 19.0 mmol/L Low 21.0-32.0 [facility] Comment on above: Performed By: #### L 503.0106 #### [facility] [address] [place], [address] Creatinine [Mass/Vol] 0.78 mg/dL Normal 0.70-1.[address] [facility] Comment on above: Performed By: #### L 503.0106 #### [facility] [address] [place], [address] ECRCL 88.83 ml/min Normal 50-250 [facility] Comment on above: Performed By: #### L 503.0106 #### [facility] [address] [place], [address] GAP 13 Normal 5-15 [facility] Comment on above: Performed By: #### L 503.0106 #### [facility] [address] [place], [address] GFR/1.73 sq M.predicted among non-blacks MDRD (S/P/Bld) [Vol rate/Area] 81 mL/min/{1.73_m2} Normal >60 [facility] Comment on above: Result Comment: mL/m in/1.73m2 CKD-EPI Creatinine Equation (2020) Performed By: #### L 503.0106 #### [facility] [address] [place], [address] Globulin (S) [Mass/Vol] 3.7 g/dL Normal 2.2-4.2 [facility] Comment on above: Performed By: #### L 503.0106 #### [facility] [address] [place], [address] Glucose [Mass/Vol] 151 mg/dL High 70-99 [facility] Comment on above: Performed By: #### L 503.0106 #### [facility] [address] [place], [address] Potassium [Moles/Vol] 4.3 mmol/L Normal 3.3-5.[address] [facility] Comment on above: Result Comment: Hemo lysis present, Results??could be affected. ?? Performed By: #### L 503.0106 #### [facility] [address] [place], [address] Sodium [Moles/Vol] 138 mmol/L Normal 133-145 [facility] Comment on above: Performed By: #### L 503.0106 #### [facility] [address] [place], [address] T PROT 7.2 g/dL Normal 5.9-8.4 [facility] Comment on above: Performed By: #### L 503.0106 #### [facility] [address] [place], [address] Urea nitrogen [Mass/Vol] 20 mg/dL High 4-19 [facility] Comment on above: Performed By: #### L 503.0106 #### [facility] [address] [place], [address] Folate [Moles/volume] in Ser um or PlasmaOrdered By: Missael Lomeli on 10-10-2024 Folate [Moles/Vol] 7.20 ng/mL 4.60-34.80 [facility] Comment on above: Hemolysis, Results w ill be affected, Requires Recollection. Folates,Serum (Folic Acid)on 10-10-2024 FOLATES,SERUM 7.20 ng/mL Normal 4.60-34.80 [facility] Comment on above: Order Comment: N Result Comment: Hemo lysis, Results will be affected, Requires Recollection. Performed By: #### L 506.0200 #### [facility] [address] [place], [place], [address] Hemoglobin A1con 10-10-2024 HbA1c (Bld) [Mass fraction] 7.2 % High <=5.6 [facility] Comment on above: Result Comment: Norm al < 5.7 % Prediabetic 5.7 - 6.4 % Diabetic >or= 6.5 % Please note range changes. Performed By: #### L 503.0106 #### [facility] [address] [place], [place], [id number] LDL calc ser/plasOrdered By: Missael Lomeli on 10-10-2024 Cholesterol in LDL [Mass/Vol] 31 mg/dL [facility] Comment on above: Vkjahgitav=419-309 m g/dL & Higher Jzra=897 mg/dL or greater Laboratory - Chemistry and C hemistry - challengeOrdered By: Missael Lomeli on 10-10-2024 AST [Catalytic activity/Vol] 37 U/L High <32 [facility] Comment on above: Hemolysis present, R esults could be affected. Lipid Profileon 10-10-2024 CHOL:HDL 1.84 Normal [facility] Comment on above: Performed By: #### L 506.0200 #### [facility] [facility] [address] [place], [place], [id number] ([phone] Cholesterol [Mass/Vol] 103 mg/dL Normal <=200 [facility] Comment on above: Result Comment: Chol esterol level, Desirable <200 mg/dL Borderline high cholesterol 200-239 mg/dL High cholesterol >=240 mg/dL Recommendations of the NCEP Adult Treatment Panel for the following risk-cutoff thresholds for the [place] population. Performed By: #### L 506.0200 #### [facility] [address] [place], [place], [id number] (854) Cholesterol in HDL [Mass/Vol] 56 mg/dL Normal [facility] Comment on above: Result Comment: Linda onal Cholesterol Education Program (NCEP) guidelines: <40 mg/dL: Low HDL-cholesterol (major risk factor for CHD) >= 60 mg/dL: High HDL-cholesterol (negative risk factor for CHD) HDL-cholesterol is affected by a number of factors, e.g. smoking, exercise, hormones, sex and age. Performed By: #### L 506.0200 #### [facility] [address] [place], [address] Cholesterol in LDL [Mass/Vol] 31 mg/dL Normal [facility] Comment on above: Result Comment: Bord dfsnqi=658-047 mg/dL Higher Rgvw=607 mg/dL or greater Performed By: #### L 506.0200 #### [facility] [address] [place], [address] Cholesterol in VLDL [Mass/Vol] 16 mg/dL Normal 5-40 [facility] Comment on above: Performed By: #### L 506.0200 #### [facility] [address] [place], [address] Triglyceride [Mass/Vol] 82 mg/dL Normal [facility] Comment on above: Result Comment: The drugs N-Acetylcysteine and Metamizole may falsely depress this assay. Normal range: <150 mg/dL Borderline High: 150-199 mg/dL High: 200-499 mg/dL Very High: >500 mg/dL Performed By: #### L [id number] #### [facility] [address] [place], [address] Phosphoruson 10-10-2024 Phosphate [Mass/Vol] 3.3 mg/dL Normal 2.7-4.5 [facility] Comment on above: Performed By: #### L 506.0200 #### [facility] [address] [place], [address] Screening total cholesterol/ high density lipoprotein (HDL) cholesterol ratioOrdered By: Missael Lomeli on 10-10-2024 Cholesterol.total/Cho lesterol in HDL [Mass ratio] 1.84 {ratio} [facility] Serum globulin measurementOr dered By: Missael Lomeli on 10-10-2024 Globulin (S) [Mass/Vol] 3.7 g/dL 2.2-4.2 [facility] Serum or plasma alanine burnette otransferase (ALT) measurementOrdered By: Missael Lomeli on 10-10-2024 ALT [Catalytic activity/Vol] 23 U/L <35 [facility] Serum or plasma albumin kim urement (mass/volume)Ordered By: Missael Lomeli on 10-10-2024 Albumin [Mass/Vol] 3.5 g/dL 3.4-4.8 [facility] Serum or plasma albumin/glob ulin mass ratioOrdered By: Missael Lomeli on 10-10-2024 Albumin/Globulin [Mass ratio] 1.0 {ratio} 0.9-2.4 [facility] Serum or plasma alkaline regina sphatase measurementOrdered By: Missael Lomeli on 10-10-2024 ALP [Catalytic activity/Vol] 122 U/L High 35-104 [facility] Serum or plasma cholesterol in HDL measurement (mass/volume)Ordered By: Missael Lomeli on 10-10-2024 Cholesterol in HDL [Mass/Vol] 56 mg/dL >40 [facility] Comment on above: National Cholesterol Education Program (NCEP) guidelines:<40 mg/dL: Low HDL-cholesterol (major risk factor for CHD)>= 60 mg/dL: High HDL-cholesterol (negative risk factor for CHD)HDL-cholesterol is affected by a number of factors, e.g. smoking, exercise, hormones, sex and age. Serum or plasma cholesterol measurement (mass/volume)Ordered By: Missael Lomeli on 10-10-2024 Cholesterol [Mass/Vol] 103 mg/dL <201 [facility] Comment on above: Cholesterol level, D esirable <200 mg/dLBorderline high cholesterol 200-239 mg/dLHigh cholesterol >=240 mg/dLRecommendations of the NCEP Adult Treatment Panel for the following risk-cutoff thresholds for the [place] population. Total proteinOrdered By: Enrrique Lomeli on 10-10-2024 Protein [Mass/Vol] 7.2 g/dL 5.9-8.4 [facility] Triglycerides measurementOrd ered By: Missael Lomeli on 10-10-2024 Triglyceride [Mass/Vol] 82 mg/dL <199 [facility] Comment on above: The drugs N-Acetylcy steine and Metamizole may falsely depress this assay. Normal range: <150 mg/dLBorderline High: 150-199 mg/dLHigh: 200-499 mg/dLVery High: >500 mg/dL Absolute lymphocyte countOrd ered By: Shayna Malhotra on 10-09-2024 Lymphocytes Auto (Unsp spec) [#/Vol] 0.97 10*3/uL 0.83-4.51 [facility] Absolute neutrophil countOrd ered By: Dany Richardson on 10-09-2024 Neutrophils (Bld) [#/Vol] 4.9 10*3/uL 2.0-7.7 [facility] Absolute neutrophil countOrd ered By: Shayna Malhotra on 10-09-2024 Neutrophils (Bld) [#/Vol] 4.4 10*3/uL 2.0-7.7 [facility] Alcohol, Blood (Medical)-Ser umon 10-09-2024 SERUM ETOH < 10.1 Normal <=10.0 [facility] Comment on above: Result Comment: This test is for medical purposes only. The legal definition of intoxication varies according to local law. Performed By: #### L 503.0106 #### [facility] [place] [address], [address] Amorphous sediment detection in urine sediment by light microscopyOrdered By: Dany Richardson on 10-09-2024 Amorphous sediment LM Ql (Urine sed) 1+ [facility] Amphetamine detection with 1 000 ng/mL as cutoffOrdered By: Missael oLmeli on 10-09-2024 Amphetamines Screen method >1000 ng/mL Ql (U) Negative < 200 ng/mL [facility] Anion gap in Serum or Plasma Ordered By: Dany Richardson on 10-09-2024 Anion gap [Moles/Vol] 11 mmol/L 10-[address] [facility] Anion gap in Serum or Plasma Ordered By: Shayna Malhotra on 10-09-2024 Anion gap [Moles/Vol] 12 mmol/L 10-[address] [facility] Automated lymphocyte count a s percentage of total leukocytesOrdered By: Shayna Malhotra on 10-09-2024 Lymphocytes/100 WBC Auto (Unsp spec) 16.1 % Low 19-41 [facility] BUN/creatinine ratioOrdered By: Dany Richardson on 10-09-2024 Urea nitrogen/Creatinine [Mass ratio] 26.6 mg/mg High 10- [facility] BUN/creatinine ratioOrdered By: Shayna Malhotra on 10-09-2024 Urea nitrogen/Creatinine [Mass ratio] 25.9 mg/mg High - [facility] Basophil percentageOrdered B y: Dany Richardson on 10-09-2024 Basophils/100 WBC (Bld) 0.4 % 0-1 [facility] Basophil percentageOrdered B y: Shayna Malhotra on 10-09-2024 Basophils/100 WBC (Bld) 0.5 % 0-1 [facility] Bilirubin Test strip Ql (U)O rdered By: Dany Richardson on 10-09-2024 Bilirubin Ql (U) Negative Negative [facility] Bilirubin, totalOrdered By: Dany Richardson on 10-09-2024 Bilirubin [Mass/Vol] 0.67 mg/dL 0.00-1.30 [facility] Bilirubin, totalOrdered By: Shayna Malhotra on 10-09-2024 Bilirubin [Mass/Vol] 0.62 mg/dL 0.00-1.30 [facility] CBC W/Diff, Automatedon Absolute Lymph 1.11 X10 3/uL Normal 0.83-4.51 [facility] Comment on above: Performed By: #### L 500.4050, L506.1000, L501.9985, L100.0100 #### [facility] [address] [place], [address] Absolute Neut 4.9 X10 3/uL Normal 2.0-7.7 [facility] Comment on above: Performed By: #### L 500.4050, L506.1000, L501.9985, L100.0100 #### [facility] [address] [place], [address] Basophils/100 WBC (Bld) 0.4 % Normal 0-1 [facility] Comment on above: Performed By: #### L 500.4050, L506.1000, L501.9985, L100.0100 #### [facility] [address] [place], [address] Eosinophils/100 WBC (Bld) 2.5 % Normal 0-5 [facility] Comment on above: Performed By: #### L 500.4050, L506.1000, L501.9985, L100.0100 #### [facility] [address] [place], [address] Erythrocyte distribution width (RBC) [Ratio] 15.9 % High 11.6-14.6 [facility] Comment on above: Performed By: #### L 500.4050, L506.1000, L501.9985, L100.0100 #### [facility] [address] [place], [address] Hematocrit (Bld) [Volume fraction] 40.8 % Normal 37-47 [facility] Comment on above: Performed By: #### L 500.4050, L506.1000, L501.9985, L100.0100 #### [facility] [address] [place], [address] Hemoglobin (Bld) [Mass/Vol] 13.5 g/dL Normal 12.0-15.0 [facility] Comment on above: Performed By: #### L 500.4050, L506.1000, L501.9985, L100.0100 #### [facility] [address] [place], [address] IG% 0.400 Normal 0.0-0.9 [facility] Comment on above: Result Comment: IG% - Immature Granulocytes (promyelocytes, myelocytes and metamyelocytes) > 1% indicates that a LEFT SHIFT is Present. Performed By: #### L 500.4050, L506.1000, L501.9985, L100.0100 #### [facility] [address] [place], [address] Lymphocytes/100 WBC (Bld) 16.3 % Low 19-41 [facility] Comment on above: Performed By: #### L 500.4050, L506.1000, L501.9985, L100.0100 #### [facility] [address] [place], [address] MCH (RBC) [Entitic mass] 28.9 pg Normal 27.0-32.0 [facility] Comment on above: Performed By: #### L 500.4050, L506.1000, L501.9985, L100.0100 #### [facility] [address] [place], [address] MCHC (RBC) [Mass/Vol] 33.1 g/dL Normal 32-[address] [facility] Comment on above: Performed By: #### L 500.4050, L506.1000, L501.9985, L100.0100 #### [facility] [address] [place], [address] MCV (RBC) [Entitic vol] 87.4 fL Normal 81-99 [facility] Comment on above: Performed By: #### L 500.4050, L506.1000, L501.9985, L100.0100 #### [facility] [address] [place], [address] Monocytes/100 WBC (Bld) 8.3 % Normal 0-10 [facility] Comment on above: Performed By: #### L 500.4050, L506.1000, L501.9985, L100.0100 #### [facility] [address] [place], [address] Neutrophils/100 WBC (Bld) 72.1 % High 47-70 [facility] Comment on above: Performed By: #### L 500.4050, L506.1000, L501.9985, L100.0100 #### [facility] [address] [place], [address] Nucleated RBC (Bld) [#/Vol] 0 10*3/uL Normal 0-5 [facility] Comment on above: Performed By: #### L 500.4050, L506.1000, L501.9985, L100.0100 #### [facility] [address] [place], [address] Platelet mean volume (Bld) [Entitic vol] 11.8 fL Normal 6.2-12.0 [facility] Comment on above: Performed By: #### L 500.4050, L506.1000, L501.9985, L100.0100 #### [facility] [address] [place], [address] Platelets (Bld) [#/Vol] 106 10*3/uL Low 150-450 [facility] Comment on above: Performed By: #### L 500.4050, L506.1000, L501.9985, L100.0100 #### [facility] [address] [place], [address] RBC (Bld) [#/Vol] 4.67 10*6/uL Normal 4.2-5.4 [facility] Comment on above: Performed By: #### L 500.4050, L506.1000, L501.9985, L100.0100 #### [facility] [address] [place], [address] RDW SD 51.0 fl High 35.1-43.9 [facility] Comment on above: Performed By: #### L 500.4050, L506.1000, L501.9985, L100.0100 #### [facility] [address] [place], [address] WBC (Bld) [#/Vol] 6.8 10*3/uL Normal 4.4-11.0 [facility] Comment on above: Performed By: #### L 500.4050, L506.1000, L501.9985, L100.0100 #### [facility] [address] [place], [address] Absolute Lymph 0.97 X10 3/uL Normal 0.83-4.51 [facility] Comment on above: Order Comment: 134 Performed By: #### L 503.0106 #### [facility] [address] [place], [address] Absolute Neut 4.4 X10 3/uL Normal 2.0-7.7 [facility] Comment on above: Order Comment: 134 Performed By: #### L 503.0106 #### [facility] [address] [place], [address] Basophils/100 WBC (Bld) 0.5 % Normal 0-1 [facility] Comment on above: Order Comment: 134 Performed By: #### L 503.0106 #### [facility] [address] [place], [address] Eosinophils/100 WBC (Bld) 1.2 % Normal 0-5 [facility] Comment on above: Order Comment: 134 Performed By: #### L 503.0106 #### [facility] [address] [place], [address] Erythrocyte distribution width (RBC) [Ratio] 15.7 % High 11.6-14.6 [facility] Comment on above: Order Comment: 134 Performed By: #### L 503.0106 #### [facility] [address] [place], [address] Hematocrit (Bld) [Volume fraction] 40.9 % Normal 37-47 [facility] Comment on above: Order Comment: 134 Performed By: #### L 503.0106 #### [facility] [address] [place], [address] Hemoglobin (Bld) [Mass/Vol] 13.5 g/dL Normal 12.0-15.0 [facility] Comment on above: Order Comment: 134 Performed By: #### L 503.0106 #### [facility] [address] [place], [address] IG% 0.300 Normal 0.0-0.9 [facility] Comment on above: Order Comment: 134 Result Comment: IG% - Immature Granulocytes (promyelocytes, myelocytes and metamyelocytes) > 1% indicates that a LEFT SHIFT is Present. Performed By: #### L 503.0106 #### [facility] [address] [place], [address] Lymphocytes/100 WBC (Bld) 16.1 % Low 19-41 [facility] Comment on above: Order Comment: 134 Performed By: #### L 503.0106 #### [facility] [address] [place], [address] MCH (RBC) [Entitic mass] 28.8 pg Normal 27.0-32.0 [facility] Comment on above: Order Comment: 134 Performed By: #### L 503.0106 #### [facility] [address] [place], [address] MCHC (RBC) [Mass/Vol] 33.0 g/dL Normal 32-[address] [facility] Comment on above: Order Comment: 134 Performed By: #### L 503.0106 #### [facility] [address] [place], [address] MCV (RBC) [Entitic vol] 87.4 fL Normal 81-99 [facility] Comment on above: Order Comment: 134 Performed By: #### L 503.0106 #### [facility] [address] [place], [address] Monocytes/100 WBC (Bld) 8.4 % Normal 0-10 [facility] Comment on above: Order Comment: 134 Performed By: #### L 503.0106 #### [facility] [address] [place], [address] Neutrophils/100 WBC (Bld) 73.5 % High 47-70 [facility] Comment on above: Order Comment: 134 Performed By: #### L 503.0106 #### [facility] [address] [place], [address] Nucleated RBC (Bld) [#/Vol] 0 10*3/uL Normal 0-5 [facility] Comment on above: Order Comment: 134 Performed By: #### L 503.0106 #### [facility] [address] [place], [address] Platelet mean volume (Bld) [Entitic vol] 10.8 fL Normal 6.2-12.0 [facility] Comment on above: Order Comment: 134 Performed By: #### L 503.0106 #### [facility] [address] [place], [address] Platelets (Bld) [#/Vol] 107 10*3/uL Low 150-450 [facility] Comment on above: Order Comment: 134 Performed By: #### L 503.0106 #### [facility] [address] [place], [address] RBC (Bld) [#/Vol] 4.68 10*6/uL Normal 4.2-5.4 [facility] Comment on above: Order Comment: 134 Performed By: #### L 503.0106 #### [facility] [address] [place], [address] RDW SD 50.2 fl High 35.1-43.9 [facility] Comment on above: Order Comment: 134 Performed By: #### L 503.0106 #### [facility] [address] [place], [address] WBC (Bld) [#/Vol] 6.0 10*3/uL Normal 4.4-11.0 [facility] Comment on above: Order Comment: 134 Performed By: #### L 503.0106 #### [facility] [address] [place], [address] CRPon 10-09-2024 C-REACTIVE PROT 5.92 mg/L High 0.0-3.0 [facility] Comment on above: Performed By: #### L 503.0106 #### [facility] [address] [place], [address] Carbon dioxide, total [Moles /volume] in Central venous bloodOrdered By: Dany Richardson on 10-09-2024 CO2 [Moles/Vol] 21.0 mmol/L 21.0-32.0 [facility] Carbon dioxide, total [Moles /volume] in Central venous bloodOrdered By: Shayna Malhotra on 10-09-2024 CO2 [Moles/Vol] 22.6 mmol/L 21.0-32.0 [facility] Chloride assayOrdered By: Nolan Richardson on 10-09-2024 Chloride [Moles/Vol] 106 mmol/L 98-108 [facility] Chloride assayOrdered By: Maryanne Malhotra on 10-09-2024 Chloride [Moles/Vol] 104 mmol/L 98-108 [facility] Comprehensive Metabolic Prof ilon 10-09-2024 Albumin [Mass/Vol] 3.8 g/dL Normal 3.4-4.8 [facility] Comment on above: Performed By: #### L 500.4050, L506.1000, L501.9985, L100.0100 #### [facility] [address] [place], [address] Albumin/Globulin [Mass ratio] 0.8 {ratio} Low 0.9-2.4 [facility] Comment on above: Performed By: #### L 500.4050, L506.1000, L501.9985, L100.0100 #### [facility] [address] [place], [address] ALK PHOS 135 U/L High 35-104 [facility] Comment on above: Performed By: #### L 500.4050, L506.1000, L501.9985, L100.0100 #### [facility] [address] [place], [address] ALT [Catalytic activity/Vol] 23 U/L Normal <=34 [facility] Comment on above: Performed By: #### L 500.4050, L506.1000, L501.9985, L100.0100 #### [facility] [address] [place], [address] AST [Catalytic activity/Vol] 40 U/L High <=31 [facility] Comment on above: Result Comment: Hemo lysis present, Results??could be affected. ?? Performed By: #### L 500.4050, L506.1000, L501.9985, L100.0100 #### [facility] [address] [place], [address] Bilirubin [Mass/Vol] 0.67 mg/dL Normal 0.00-1.30 [facility] Comment on above: Performed By: #### L 500.4050, L506.1000, L501.9985, L100.0100 #### [facility] [address] [place], [address] BUN/CRE 26.6 RATIO High 10-20 [facility] Comment on above: Performed By: #### L 500.4050, L506.1000, L501.9985, L100.0100 #### [facility] [address] [place], [address] Calcium [Mass/Vol] 9.7 mg/dL Normal 7.6-11.0 [facility] Comment on above: Performed By: #### L 500.4050, L506.1000, L501.9985, L100.0100 #### [facility] [address] [place], [address] Chloride [Moles/Vol] 106 mmol/L Normal 98-108 [facility] Comment on above: Performed By: #### L 500.4050, L506.1000, L501.9985, L100.0100 #### [facility] [address] [place], [address] CO2 [Moles/Vol] 21.0 mmol/L Normal 21.0-32.0 [facility] Comment on above: Performed By: #### L 500.4050, L506.1000, L501.9985, L100.0100 #### [facility] [address] [place], [address] Creatinine [Mass/Vol] 0.88 mg/dL Normal 0.70-1.[address] [facility] Comment on above: Performed By: #### L 500.4050, L506.1000, L501.9985, L100.0100 #### [facility] [address] [place], [address] ECRCL 81.27 ml/min Normal 50-250 [facility] Comment on above: Performed By: #### L 500.4050, L506.1000, L501.9985, L100.0100 #### [facility] [address] [place], [address] GAP 11 Normal 5-15 [facility] Comment on above: Performed By: #### L 500.4050, L506.1000, L501.9985, L100.0100 #### [facility] [address] [place], [address] GFR/1.73 sq M.predicted among non-blacks MDRD (S/P/Bld) [Vol rate/Area] 70 mL/min/{1.73_m2} Normal >60 [facility] Comment on above: Result Comment: mL/m in/1.73m2 CKD-EPI Creatinine Equation (2020) Performed By: #### L 500.4050, L506.1000, L501.9985, L100.0100 #### [facility] [address] [place], [address] Globulin (S) [Mass/Vol] 4.6 g/dL High 2.2-4.2 [facility] Comment on above: Performed By: #### L 500.4050, L506.1000, L501.9985, L100.0100 #### [facility] [address] [place], [address] Glucose [Mass/Vol] 138 mg/dL High 70-99 [facility] Comment on above: Performed By: #### L 500.4050, L506.1000, L501.9985, L100.0100 #### [facility] [address] [place], [address] Potassium [Moles/Vol] 4.5 mmol/L Normal 3.3-5.[address] [facility] Comment on above: Result Comment: Hemo lysis present, Results??could be affected. ?? Performed By: #### L 500.4050, L506.1000, L501.9985, L100.0100 #### [facility] [address] [place], [address] Sodium [Moles/Vol] 138 mmol/L Normal 133-145 [facility] Comment on above: Performed By: #### L 500.4050, L506.1000, L501.9985, L100.0100 #### [facility] [address] [place], [address] T PROT 8.4 g/dL Normal 5.9-8.4 [facility] Comment on above: Performed By: #### L 500.4050, L506.1000, L501.9985, L100.0100 #### [facility] [address] [place], [address] Urea nitrogen [Mass/Vol] 23 mg/dL High 4-19 [facility] Comment on above: Performed By: #### L 500.4050, L506.1000, L501.9985, L100.0100 #### [facility] [address] [place], [address] Albumin [Mass/Vol] 4.0 g/dL Normal 3.4-4.8 [facility] Comment on above: Order Comment: 134 Performed By: #### L 501.080 #### [facility] [address] [place], [address] Albumin/Globulin [Mass ratio] 0.8 {ratio} Low 0.9-2.4 [facility] Comment on above: Order Comment: 134 Performed By: #### L 501.080 #### [facility] [address] [place], [address] ALK PHOS 148 U/L High 35-104 [facility] Comment on above: Order Comment: 134 Performed By: #### L 501.080 #### [facility] [address] [place], [address] ALT [Catalytic activity/Vol] 26 U/L Normal <=34 [facility] Comment on above: Order Comment: 134 Performed By: #### L 501.080 #### [facility] [address] [place], [address] AST [Catalytic activity/Vol] 37 U/L High <=31 [facility] Comment on above: Order Comment: 134 Performed By: #### L 501.080 #### [facility] [address] [place], [address] Bilirubin [Mass/Vol] 0.62 mg/dL Normal 0.00-1.30 [facility] Comment on above: Order Comment: 134 Performed By: #### L 501.080 #### [facility] [address] [place], [address] BUN/CRE 25.9 RATIO High 10-20 [facility] Comment on above: Order Comment: 134 Performed By: #### L 501.080 #### [facility] [address] [place], [address] Calcium [Mass/Vol] 9.6 mg/dL Normal 7.6-11.0 [facility] Comment on above: Order Comment: 134 Performed By: #### L 501.080 #### [facility] [address] [place], [address] Chloride [Moles/Vol] 104 mmol/L Normal 98-108 [facility] Comment on above: Order Comment: 134 Performed By: #### L 501.080 #### [facility] [address] [place], [address] CO2 [Moles/Vol] 22.6 mmol/L Normal 21.0-32.0 [facility] Comment on above: Order Comment: 134 Performed By: #### L 501.080 #### [facility] [address] [place], [address] Creatinine [Mass/Vol] 0.82 mg/dL Normal 0.70-1.[address] [facility] Comment on above: Order Comment: 134 Performed By: #### L [id number] #### [facility] [address] [place], [address] GAP 12 Normal 5-15 [facility] Comment on above: Order Comment: 134 Performed By: #### L 501.080 #### [facility] [address] [place], [address] GFR/1.73 sq M.predicted among non-blacks MDRD (S/P/Bld) [Vol rate/Area] 76 mL/min/{1.73_m2} Normal >60 [facility] Comment on above: Order Comment: 134 Result Comment: mL/m in/1.73m2 CKD-EPI Creatinine Equation (2020) Performed By: #### L 501.080 #### [facility] [address] [place], [address] Globulin (S) [Mass/Vol] 4.8 g/dL High 2.2-4.2 [facility] Comment on above: Order Comment: 134 Performed By: #### L 501.080 #### [facility] [address] [place], [address] Glucose [Mass/Vol] 173 mg/dL High 70-99 [facility] Comment on above: Order Comment: 134 Performed By: #### L 501.080 #### [facility] [address] [place], [address] Potassium [Moles/Vol] 4.2 mmol/L Normal 3.3-5.[address] [facility] Comment on above: Order Comment: 134 Performed By: #### L 501.080 #### [facility] [address] [place], [address] Sodium [Moles/Vol] 138 mmol/L Normal 133-145 [facility] Comment on above: Order Comment: 134 Performed By: #### L 501.080 #### [facility] [address] [place], [address] T PROT 8.9 g/dL High 5.9-8.4 [facility] Comment on above: Order Comment: 134 Performed By: #### L 501.080 #### [facility] [address] [place], [address] Urea nitrogen [Mass/Vol] 21 mg/dL High 4-19 [facility] Comment on above: Order Comment: 134 Performed By: #### L 501.080 #### [facility] [address] [place], [address] Emergency Department Summary on 10-09-2024 Emergency Department Summary [facility] Medical Records Department [address] [place] [address] Emergency Department Summary 10/09/24 MR#: [id number] Acct: [id number] Name: VIDA NINA Rep #: [id number] : 1950 73 From: Dany Richardson MD PCP: Dr. Shayna Malhotra MD Status:REG ER Location: ED HPI History of Present Illness Chief Complaint: Lower Extremity Injury Narrative Narrative: 73-year-old female states that she had pins placed in her left foot approximately 15 years ago [place] after breaking her heel. She is currently in [facility]. She states for the last 2 weeks she has been having increasing foot pain. She states that on Tuesday, probably of the last week, she had x-rays obtained at the [facility]. She went and saw Dr. Shayna Malhotra on Tuesday, but he did not have the x-ray results. She states that she is having a lot of pain in her left heel that is worse with weightbearing and walking and palpation. She states that it feels as if she is having a baby out of her left heel. [facility] Medical History Obesity Anxiety Cancer Anxiety [...] History powder [facility] Unknown History Lite Strips) blood-glucose meter ([employer] 11/23/21 Unknown History Lite Meter kit) lancets 28 gauge ([employer] 11/23/21 Unknown History Lancets) nystatin 100,000 unit/gram topical 1 applic topical TID #0 grams Unknown Rx powder ([facility]) quetiapine 100 mg tablet 300 mg (3 [...] ROS Narrative (more content not included)... Normal [facility] Eosinophil percentageOrdered By: Dany Richardson on 10-09-2024 Eosinophils/100 WBC (Bld) 2.5 % 0-5 [facility] Eosinophil percentageOrdered By: Shayna Malhotra on 10-09-2024 Eosinophils/100 WBC (Bld) 1.2 % 0-5 [facility] Epithelial cells.squamous LM Ql (Urine sed)Ordered By: Dany Richardson on 10-09-2024 Epithelial cells.squamous LM.HPF (Urine sed) [#/Area] 0 /[HPF] 5-10 [facility] Erythrocyte Sed Rateon 10-09 SED RATE 49 mm/hr High 0-30 [facility] Comment on above: Performed By: #### L 503.0106 #### [facility] [place], [address] Erythrocyte distribution wid th (RBC) [Ratio]Ordered By: Dany Richardson on 10-09-2024 Erythrocyte distribution width (RBC) [Entitic vol] 51.0 fL High 35.1-43.9 [facility] Erythrocyte distribution wid th (RBC) [Ratio]Ordered By: Shayna Malhotra on 10-09-2024 Erythrocyte distribution width (RBC) [Entitic vol] 50.2 fL High 35.1-43.9 [facility] Erythrocyte distribution wid th ratioOrdered By: Dany Richardson on 10-09-2024 Erythrocyte distribution width (RBC) [Ratio] 15.9 % High 11.6-14.6 [facility] Erythrocyte distribution wid th ratioOrdered By: Shayna Malhotra on 10-09-2024 Erythrocyte distribution width (RBC) [Ratio] 15.7 % High 11.6-14.6 [facility] Erythrocyte distribution wid th standard deviationOrdered By: Shayna Malhotra on 10-09-2024 Erythrocyte distribution width (RBC) [Ratio] 50.2 fl High 35.1-43.9 [facility] Erythrocyte sedimentation ra teOrdered By: Missael Lomeli on 10-09-2024 ESR (Bld) [Velocity] 49 mm/h High 0-30 [facility] Estimation of creatinine silvana aranceOrdered By: Dany Richardson on 10-09-2024 Estimated Creatinine Clearance Calc 81.27 ml/min 50-250 [facility] Extremity Lower without Cont raon 10-09-2024 Extremity Lower without Contra [facility] Imaging Services [address] [place] [address] [id number] Extremity Lower without Contra MR#: [id number] Acct: [id number] Name: VIDA NINA Rep #: [id number] : 1950 F 73 From: Saul Sanchez MD PCP: Dr. Shayna Malhotra MD Status: ADM IN Study: Extremity Lower without Contra Date of Exam: 0 10/09/24 Exam# [id number] Ordering Dr: Missael Hernandez DO PROCEDURE: EXTREMITY [...] Hernandez at 2:20 a.m. 10/10/2024 Reading Location: [facility] CC: Dr. Missael Hernandez DO; Dr. 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 Shayna Malhotra MD Status: REG ER Study: Foot min 3 Views Date of Exam: 10/09/24 Exam# [id number] Ordering Dr: Dany Richardson MD EXAM: LEFT [...] Dany Richardson MD; Dr. 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 Normal [facility] GFR/1.73 sq M.predicted saida g non-blacks MDRD (S/P/Bld) [Vol rate/Area]Ordered By: Dany Richardson on 10-09-2024 Estimated GFR (MDRD) Non-Af Amer 70 >60 [facility] Comment on above: mL/min/1.73m2 CKD-EP I Creatinine Equation (2020) GFR/1.73 sq M.predicted saida g non-blacks MDRD (S/P/Bld) [Vol rate/Area]Ordered By: Shayna Malhotra on 10-09-2024 Estimated GFR (MDRD) Non-Af Amer 76 >60 [facility] Comment on above: mL/min/1.73m2 CKD-EP I Creatinine Equation (2020) Glomerular filtration rate ( GFR) estimation/1.73 sq m using serum, plasma, or whole bOrdered By: Shayna Malhotra on 10-09-2024 GFR/1.73 sq M.predicted among non-blacks MDRD (S/P/Bld) [Vol rate/Area] 76 mL/min/{1.73_m2} >60 [facility] Comment on above: mL/min/1.73m2 CKD-EP I Creatinine Equation (2020) Glucose Ql (U)Ordered By: Nolan Richardson on 10-09-2024 Glucose (U) [Mass/Vol] 1000 mg/dL High Normal [facility] H AND P Exam - Hospitaliston 10-09-2024 H&P Exam - Hospitalist [facility] Medical Records Department [address] [place] [address] H P Exam - Hospitalist 10/09/242118 MR#: [id number] Acct: [id number] Name: VIDA NINA Rep #: [id number] : 1950 73 From: Missael Hernandez DO PCP: Dr. Shayna Malhotra MD Status:ADM [place] [facility] [id number] HPI - General General Date of Admission: [...] is currently residing in assisted living at [facility] presents to [facility] ER complaining of worsening Left heel [...] plantar fasciitis. She states that on Tuesday, September 08, 2024 she underwent x-rays after [...] skin folds and extremely poor hygiene with PATIENT ATTENDANT having social work consulted and patient felt [...] is expected to extend beyond 2 midnights. [facility] Medical History Obesity Anxiety Cancer Anxiety [...] topical TID #0 grams Unknown Rx powder ([facility]) quetiapine 100 mg tablet 300 mg (3 x 100 mg) PO BID #0 tabs 11/24/21 Unknown Rx aspirin 81 mg chewable tablet 81 mg PO DAILY 05/06/22 Unknown Hi (more content not included)... Normal [facility] Hematocrit Auto (Bld) [Volum e fraction]Ordered By: Dany Richardson on 10-09-2024 Hematocrit (Bld) [Volume fraction] 40.8 % [address] Hematocrit Auto (Bld) [Volum e fraction]Ordered By: Shayna Malhotra on 10-09-2024 Hematocrit (Bld) [Volume fraction] 40.9 % [address] [place] [address] Hemoglobin A1con 10-09-2024 HbA1c (Bld) [Mass fraction] 7.2 % High <=5.6 [facility] Comment on above: Order Comment: 134 Result Comment: Norm al < 5.7 % Prediabetic 5.7 - 6.4 % Diabetic >or= 6.5 % Please note range changes. Performed By: #### L 501.080 #### [facility] [address] [place], [place] [address] [place], [place], [id number] Hemoglobin A1c percentageOrd ered By: Missael Lomeli on 10-09-2024 HbA1c (Bld) [Mass fraction] 7.2 % High <5.7 [facility] Comment on above: Normal < 5.7 % Predi abetic 5.7 - 6.4 % Diabetic >or= 6.5 % Please note range changes. Hemoglobin A1c percentageOrd ered By: Shayna Malhotra on 10-09-2024 HbA1c (Bld) [Mass fraction] 7.2 % High <5.7 [facility] Comment on above: Normal < 5.7 % Predi abetic 5.7 - 6.4 % Diabetic >or= 6.5 % Please note range changes. Hemoglobin measurementOrdere d By: Dany Richardson on 10-09-2024 Hemoglobin (Bld) [Mass/Vol] 13.5 g/dL 12.0-15.0 [facility] Hemoglobin measurementOrdere d By: Shayna Malhotra on 10-09-2024 Hemoglobin (Bld) [Mass/Vol] 13.5 g/dL 12.0-15.0 [facility] Immature granulocytes/100 WB C Auto (Bld)Ordered By: Dany Richardson on 10-09-2024 Immature granulocytes/100 WBC (Bld) 0.400 % 0.0-0.9 [facility] Comment on above: IG% - Immature Granu locytes (promyelocytes, myelocytes and metamyelocytes) > 1% indicates that a LEFT SHIFT is Present. Immature granulocytes/100 WB C Auto (Bld)Ordered By: Shayna Malhotra on 10-09-2024 Immature granulocytes/100 WBC (Bld) 0.300 % 0.0-0.9 [facility] Comment on above: IG% - Immature Granu locytes (promyelocytes, myelocytes and metamyelocytes) > 1% indicates that a LEFT SHIFT is Present. Ketones Test strip Ql (U)Ord ered By: Dany Richardson on 10-09-2024 Ketones Ql (U) Negative Negative [facility] - Chemistry and C hemistry - challengeOrdered By: Dany Richardson on 10-09-2024 AST [Catalytic activity/Vol] 40 U/L High <32 [facility] Comment on above: Hemolysis present, R esults could be affected. Laboratory - Chemistry and C hemistry - challengeOrdered By: Shayna Malhotra on 10-09-2024 AST [Catalytic activity/Vol] 37 U/L High <32 [facility] Lymphocytes Auto (Unsp spec) [#/Vol]Ordered By: Dany Richardson on 10-09-2024 Lymphocytes (Bld) [#/Vol] 1.11 10*3/uL 0.83-4.51 [facility] Lymphocytes Auto (Unsp spec) [#/Vol]Ordered By: Shayna Malhotra on 10-09-2024 Lymphocytes (Bld) [#/Vol] 0.97 10*3/uL 0.83-4.51 [facility] Lymphocytes/100 WBC Auto (Un sp spec)Ordered By: Dany Richardson on 10-09-2024 Lymphocytes/100 WBC (Bld) 16.3 % Low 19-41 [facility] Lymphocytes/100 WBC Auto (Un sp spec)Ordered By: Shayna Malhotra on 10-09-2024 Lymphocytes/100 WBC (Bld) 16.1 % Low 19-41 [facility] MCV (mean corpuscular volume ) determinationOrdered By: Dany Richardson on 10-09-2024 MCV (RBC) [Entitic vol] 87.4 fL 81-99 [facility] MCV (mean corpuscular volume ) determinationOrdered By: Shayna Malhotra on 10-09-2024 MCV (RBC) [Entitic vol] 87.4 fL 81-99 [facility] Magnesiumon 10-09-2024 Magnesium [Mass/Vol] 2.1 mg/dL Normal 1.5-2.2 [facility] Comment on above: Performed By: #### L 503.0106 #### [facility] [address] [place] [address], [address] Mean corpuscular hemoglobin (MCH) determinationOrdered By: Dany Richardson on 10-09-2024 MCH (RBC) [Entitic mass] 28.9 pg 27.0-32.0 [facility] Mean corpuscular hemoglobin (MCH) determinationOrdered By: Shayna Malhotra on 10-09-2024 MCH (RBC) [Entitic mass] 28.8 pg 27.0-32.0 [facility] Mean corpuscular hemoglobin concentration (MCHC) determinationOrdered By: Dany Richardson on 10-09-2024 MCHC (RBC) [Mass/Vol] 33.1 g/dL [facility] Mean corpuscular hemoglobin concentration (MCHC) determinationOrdered By: Shayna Malhotra on 10-09-2024 MCHC (RBC) [Mass/Vol] 33.0 g/dL [facility] Mean platelet volume determi nationOrdered By: Dany Richardson on 10-09-2024 Platelet mean volume (Bld) [Entitic vol] 11.8 fL 6.2-12.0 [facility] Mean platelet volume determi nationOrdered By: Shayna Malhotra on 10-09-2024 Platelet mean volume (Bld) [Entitic vol] 10.8 fL 6.2-12.0 [facility] Microscopic analysis of urin e for red blood cells (RBC)Ordered By: Dany Richardson on 10-09-2024 Microscopic analysis of urine for red blood cells (RBC) 10-25 SEEN /hpf 0-5 [facility] Urine RBC 10-25 SEEN /hpf 0-5 [facility] Monocyte percentageOrdered B y: Dany Richardson on 10-09-2024 Monocytes/100 WBC (Bld) 8.3 % 0-10 [facility] Monocyte percentageOrdered B y: Shayna Malhotra on 10-09-2024 Monocytes/100 WBC (Bld) 8.4 % 0-10 [facility] Mucus LM Ql (Urine sed)Order ed By: Dany Richardson on 10-09-2024 Mucus Ql (Urine sed) 0 SEEN /hpf [facility] Neutrophil percentageOrdered By: Dany Richardson on 10-09-2024 Neutrophils/100 WBC (Bld) 72.1 % High 47-70 [facility] Neutrophil percentageOrdered By: Shayna Malhotra on 10-09-2024 Neutrophils/100 WBC (Bld) 73.5 % High 47-70 [facility] Nitrite Test strip Ql (U)Ord ered By: aDny Richardson on 10-09-2024 Nitrite Ql (U) Negative Negative [facility] No Panel InformationOrdered By: Missael Lomeli on 10-09-2024 Urine Buprenorphine Qualitative Negative < 200 ng/mL [facility] Urine Oxycodone Screen Negative < 100 ng/mL [facility] Nucleated red blood cell per centageOrdered By: Dany Richardson on 10-09-2024 Nucleated RBC/100 WBC (Bld) [Ratio] 0 % 0-5 [facility] Nucleated red blood cell per centageOrdered By: Shayna Malhotra on 10-09-2024 Nucleated RBC/100 WBC (Bld) [Ratio] 0 % 0-5 [facility] Platelet countOrdered By: Nolan Richardson on 10-09-2024 Platelets (Bld) [#/Vol] 106 10*3/uL Low 150-450 [facility] Platelet countOrdered By: Maryanne Malhotra on 10-09-2024 Platelets (Bld) [#/Vol] 107 10*3/uL Low 150-450 [facility] Potassium (Unsp spec) [Mass/ Vol]Ordered By: Dany Richardson on 10-09-2024 Potassium [Moles/Vol] 4.5 mmol/L 3.3-5.[address] [facility] Comment on above: Hemolysis present, R esults could be affected. Potassium (Unsp spec) [Mass/ Vol]Ordered By: Shayna Malhotra on 10-09-2024 Potassium [Moles/Vol] 4.2 mmol/L 3.3-5.[address] [facility] Potassium measurement (mass/ volume)Ordered By: Shayna Malhotra on 10-09-2024 Potassium (Unsp spec) [Mass/Vol] 4.2 mmol/L 3.3-5.1 [facility] Protein Test strip Ql (U)Ord ered By: Dany Richardson on 10-09-2024 Protein Ql (U) 30 mg/dl High Negative [facility] Quantitative urine opiates m easurementOrdered By: Missael Lomeli on 10-09-2024 Opiates Ql (U) Negative < 300 ng/mL [facility] RBC Auto (Bld) [#/Vol]Ordere d By: Dany Richardson on 10-09-2024 RBC (Bld) [#/Vol] 4.67 10*6/uL 4.2-5.4 [facility] RBC Auto (Bld) [#/Vol]Ordere d By: Shayna Malhotra on 10-09-2024 RBC (Bld) [#/Vol] 4.68 10*6/uL 4.2-5.4 [facility] Screening urine fentanyl renay surementOrdered By: Missael Lomeli on 10-09-2024 fentaNYL Screen Ql (U) Negative [facility] Serum creatinine measurement (mass/volume)Ordered By: Dany Richardson on 10-09-2024 Creatinine [Mass/Vol] 0.88 mg/dL 0.70-1.[address] [facility] Serum creatinine measurement (mass/volume)Ordered By: Shayna Malhotra on 10-09-2024 Creatinine [Mass/Vol] 0.82 mg/dL 0.70-1.[address] [facility] Serum globulin measurementOr dered By: Dany Richardson on 10-09-2024 Globulin (S) [Mass/Vol] 4.6 g/dL High 2.2-4.2 [facility] Serum globulin measurementOr dered By: Shayna Malhotra on 10-09-2024 Globulin (S) [Mass/Vol] 4.8 g/dL High 2.2-4.2 [facility] Serum glucose measurement (m ass/volume)Ordered By: Dany Richardson on 10-09-2024 Glucose [Mass/Vol] 138 mg/dL High 70-99 [facility] Serum glucose measurement (m ass/volume)Ordered By: Shayna Malhotra on 10-09-2024 Glucose [Mass/Vol] 173 mg/dL High 70-99 [facility] Serum or plasma C reactive p rotein measurement (mass/volume)Ordered By: Missael Lomeli on 10-09-2024 CRP [Mass/Vol] 5.92 mg/L High 0.0-3.0 [facility] Serum or plasma alanine burnette otransferase (ALT) measurementOrdered By: Dany Richardson on 10-09-2024 ALT [Catalytic activity/Vol] 23 U/L <35 [facility] Serum or plasma alanine burnette otransferase (ALT) measurementOrdered By: Shayna Malhotra on 10-09-2024 ALT [Catalytic activity/Vol] 26 U/L <35 [facility] Serum or plasma albumin kim urement (mass/volume)Ordered By: Dany Richardson on 10-09-2024 Albumin [Mass/Vol] 3.8 g/dL 3.4-4.8 [facility] Serum or plasma albumin kim urement (mass/volume)Ordered By: Shayna Malhotra on 10-09-2024 Albumin [Mass/Vol] 4.0 g/dL 3.4-4.8 [facility] Serum or plasma albumin/glob ulin mass ratioOrdered By: Dany Richardson on 10-09-2024 Albumin/Globulin [Mass ratio] 0.8 {ratio} Low 0.9-2.4 [facility] Serum or plasma albumin/glob ulin mass ratioOrdered By: Shayna Malhotra on 10-09-2024 Albumin/Globulin [Mass ratio] 0.8 {ratio} Low 0.9-2.4 [facility] Serum or plasma alkaline regina sphatase measurementOrdered By: Dany Richardson on 10-09-2024 ALP [Catalytic activity/Vol] 135 U/L High [facility] Serum or plasma alkaline regina sphatase measurementOrdered By: Shayna Malhotra on 10-09-2024 ALP [Catalytic activity/Vol] 148 U/L High - [facility] Serum or plasma calcium kim urement (mass/volume)Ordered By: Dany Richardson on 10-09-2024 Calcium [Mass/Vol] 9.7 mg/dL 7.6-11.0 [facility] Serum or plasma calcium kim urement (mass/volume)Ordered By: Shayna Malhotra on 10-09-2024 Calcium [Mass/Vol] 9.6 mg/dL 7.6-11.0 [facility] Serum or plasma ethanol kim urement (mass/volume)Ordered By: Missael Lomeli on 10-09-2024 Ethanol [Mass/Vol] mg/dL <10.1 [facility] Comment on above: This test is for med ical purposes only. The legal definition of intoxication varies according to local law. Serum or plasma urea nitroge n measurement (mass/volume)Ordered By: Dany Richardson on 10-09-2024 Urea nitrogen [Mass/Vol] 23 mg/dL High 09-22 [facility] Serum or plasma urea nitroge n measurement (mass/volume)Ordered By: Shayna Malhotra on 10-09-2024 Urea nitrogen [Mass/Vol] 21 mg/dL High 09-22 [facility] Sodium levelOrdered By: Dany Richardson on 10-09-2024 Sodium [Moles/Vol] 138 mmol/L 133-145 [facility] Sodium levelOrdered By: Paty Malhotra on 10-09-2024 Sodium [Moles/Vol] 138 mmol/L 133-145 [facility] Squamous epithelial cells de tection in urine sediment by light microscopyOrdered By: Dany Richardson on 10-09-2024 Epithelial cells.squamous LM Ql (Urine sed) 0-5 SEEN /hpf 5-10 [facility] TSH DL <= 0.005 mIU/L QnOrde red By: Missael Lomeli on 10-09-2024 TSH Qn 4.730 uIU/mL High 0.300-4.20 0 [facility] Thyroid Stim Hormone (TSH)on 10-09-2024 TSH 4.730 uIU/mL High 0.300-4.20 0 [facility] Comment on above: Performed By: #### L 503.0106 #### [facility] [address] [place], [address] Total proteinOrdered By: Treasure Richardson on 10-09-2024 Protein [Mass/Vol] 8.4 g/dL 5.9-8.4 [facility] Total proteinOrdered By: Evi Malhotra on 10-09-2024 Protein [Mass/Vol] 8.9 g/dL High 5.9-8.4 [facility] Transitional cells LM Ql (Ur ine sed)Ordered By: Dany Richardson on 10-09-2024 Urine Transitional Epithelial Cells 0-5 SEEN /hpf 0-5 [facility] Transitional cells detection in urine sediment by light microscopyOrdered By: Dany Richardson on 10-09-2024 Transitional cells LM Ql (Urine sed) 0-5 SEEN /hpf 0-5 [facility] Urinalysis, Completeon 10-09 AMORPHOUS 1+ Normal [facility] Comment on above: Order Comment: JOSE L CTOR TO SPECIFY Performed By: #### L 503.0106 #### [facility] [address] [place], [address] EPI,SQUAMOUS 0-5 SEEN Normal 5-10 [facility] Comment on above: Order Comment: JOSE L CTOR TO SPECIFY Performed By: #### L 503.0106 #### [facility] [address] [place], [address] EPI,TRANSITION 0-5 SEEN Normal 0-5 [facility] Comment on above: Order Comment: COLLE CTOR TO SPECIFY Performed By: #### L 503.0106 #### [facility] [address] [place], [address] RBC 10-25 SEEN Normal 0-5 [facility] Comment on above: Order Comment: COLLE CTOR TO SPECIFY Performed By: #### L 503.0106 #### [facility] [address] [place], [address] BACTERIA 4+ /hpf Normal None Seen [facility] Comment on above: Order Comment: JOSE L CTOR TO SPECIFY Performed By: #### L 503.0106 #### [facility] [address] [place], [address] WBC >100 SEEN Normal 0-5 [facility] Comment on above: Order Comment: JOSE L CTOR TO SPECIFY Performed By: #### L 503.0106 #### [facility] [address] [place], [address] Mucus Ql (Urine sed) 0 SEEN Normal [facility] Comment on above: Order Comment: JOSE L CTOR TO SPECIFY Performed By: #### L 503.0106 #### [facility] [address] [place], [address] Urine Drug Screen (VISTA)on 10-09-2024 AMPHETAMINES Negative Normal <1000 ng/mL [facility] Comment on above: Order Comment: UNK Performed By: #### L 503.0106 #### [facility] [address] [place], [address] BARBITIURATES Negative Normal < 200 ng/mL [facility] Comment on above: Order Comment: UNK Performed By: #### L 503.0106 #### [facility] [address] [place], [address] BENZODIAZIPINE Negative Normal < 200 ng/mL [facility] Comment on above: Order Comment: UNK Performed By: #### L 503.0106 #### [facility] [address] [place], [address] [facility] Ur Drug Scr Negative Normal < 200 ng/mL [facility] Comment on above: Order Comment: UNK Performed By: #### L 503.0106 #### [facility] [address] [place], [address] COCAINE Negative Normal < 300 ng/mL [facility] Comment on above: Order Comment: UNK Performed By: #### L 503.0106 #### [facility] [address] [place], [address] Fentanyl Negative Normal [facility] Comment on above: Order Comment: UNK Performed By: #### L 503.0106 #### [facility] [address] [place], [address] METHADONE Negative Normal < 300 ng/mL [facility] Comment on above: Order Comment: UNK Performed By: #### L 503.0106 #### [facility] [address] [place], [address] OPIATES Negative Normal < 300 ng/mL [facility] Comment on above: Order Comment: UNK Performed By: #### L 503.0106 #### [facility] [address] [place], [address] OXYCODONE Negative Normal < 100 ng/mL [facility] Comment on above: Order Comment: UNK Performed By: #### L 503.0106 #### [facility] [address] [place], [address] PCP Negative Normal < 25 ng/mL [facility] Comment on above: Order Comment: UNK Performed By: #### L 503.0106 #### [facility] [address] [place], [place], [address] THC Negative Normal < 50 ng/mL [facility] Comment on above: Order Comment: UNK Performed By: #### L 503.0106 #### [facility] [address] [place], [place], [id number] Urine benzodiazepine levelOr dered By: Missael Lomeli on 10-09-2024 Benzodiazepines Ql (U) Negative < 200 ng/mL [facility] Urine blood detectionOrdered By: Dany Richardson on 10-09-2024 Urine Occult Blood 150 /ul High Negative [facility] Urine clarityOrdered By: Treasure Richardson on 10-09-2024 Clarity (U) Cloudy Clear [facility] Urine cocaine levelOrdered B y: Missael Lomeli on 10-09-2024 Cocaine Ql (U) Negative < 300 ng/mL [facility] Urine color determinationOrd ered By: Dany Richardson on 10-09-2024 Color (U) Yellow Yellow [facility] Urine [id number] abinol (THC) measurementOrdered By: Missael Lomeli on 10-09-2024 Cannabinoids Screen Ql (U) Negative < 50 ng/mL [facility] Urine glucose detectionOrder ed By: Dany Richardson on 10-09-2024 Glucose Ql (U) 1000 mg/dl High Normal [facility] Urine leukocyte esterase det ection by dipstickOrdered By: Dany Richardson on 10-09-2024 Leukocyte esterase Test strip Ql (U) 100 /ul High Negative [facility] Urine pHOrdered By: Dany chung on 10-09-2024 pH (U) 5.0 [pH] 5.0 - 8.0 [facility] Urine phencyclidine (PCP) de tectionOrdered By: Missael Lomeli on 10-09-2024 Phencyclidine Ql (U) Negative < 25 ng/mL [facility] Urine sediment bacteria coun t by microscopy (number/high power field)Ordered By: Dany Richardson on 10-09-2024 Bacteria LM.HPF (Urine sed) [#/Area] 4 /[HPF] None Seen [facility] Urine specific gravity measu rementOrdered By: Dany Beltrnákaren on 10-09-2024 Specific gravity (U) [Rel density] 1.020 1.002-1.03 0 [facility] Urine urobilinogen measureme ntOrdered By: Dany Rochelleshruthi on 10-09-2024 Urobilinogen Ql (U) 1 mg/dl High Normal [facility] Urobilinogen Ql (U)Ordered B y: Dany Richardson on 10-09-2024 Urobilinogen (U) [Mass/Vol] 1 mg/dL High Normal [facility] Vitamin B12on 10-09-2024 Cobalamin (Vitamin B12) [Mass/Vol] 379 pg/mL Normal 180-914 [facility] Comment on above: Performed By: #### L 503.0106 #### [facility] [address], [place], [id number] Vitamin B12 ser/plasOrdered By: Missael Lomeli on 10-09-2024 Cobalamin (Vitamin B12) [Mass/Vol] 379 pg/mL 180-914 [facility] Vitamin D, 25-hydroxyOrdered By: Shayna Malhotra on 10-09-2024 Vitamin D 25-Hydroxy 30.0 ng/mL 30-100 [facility] Comment on above: Vitamin D StatusDefi ciency: <20 ng/mL (50nmol/L)Insufficiency: 20-30 ng/mL (50-75 nmol/L)Sufficiency: 30-100 ng/mL (75-250 nmol/L)Toxicity: >100 ng/mL (>250 nmol/L) Vitamin D,25 Hydroxyon 10-09 Vitamin D 25-OH 30.0 ng/mL Normal 30-100 [facility] Comment on above: Order Comment: 134 Result Comment: Maricarmen min D Status Deficiency: <20 ng/mL (50nmol/L) Insufficiency: 20-30 ng/mL (50-75 nmol/L) Sufficiency: 30-100 ng/mL (75-250 nmol/L) Toxicity: >100 ng/mL (>250 nmol/L) Performed By: #### L 501.080 #### [facility] [address] [place], [address] White blood cell (WBC) count Ordered By: Dany Richardson on 10-09-2024 WBC (Bld) [#/Vol] 6.8 10*3/uL 4.4-11.0 [facility] White blood cell (WBC) count Ordered By: Shayna Malhotra on 10-09-2024 WBC (Bld) [#/Vol] 6.0 10*3/uL 4.4-11.0 [facility] White blood cell countOrdere d By: Dany Richardson on 10-09-2024 Urine WBC >100 SEEN /hpf 0-5 [facility] White blood cell count >100 SEEN /hpf 0-5 [facility] CBC W/Diff, Automatedon Absolute Neut Normal 2.0-7.7 [facility] Comment on above: Order Comment: 134 Result Comment: UTO X2 Performed By: #### L 500.4050, L506.1000, L501.9985, L100.0100 #### [facility] [address] [place], [address] HCT Normal 37-47 [facility] Comment on above: Order Comment: 134 Result Comment: UTO X2 Performed By: #### L 500.4050, L506.1000, L501.9985, L100.0100 #### [facility] [address] [place], [address] HGB Normal 12.0-15.0 [facility] Comment on above: Order Comment: 134 Result Comment: UTO X2 Performed By: #### L 500.4050, L506.1000, L501.9985, L100.0100 #### [facility] [address] [place], [address] MCH Normal 27.0-32.0 [facility] Comment on above: Order Comment: 134 Result Comment: UTO X2 Performed By: #### L 500.4050, L506.1000, L501.9985, L100.0100 #### [facility] [address] [place], [address] MCHC Normal 32-36 [facility] Comment on above: Order Comment: 134 Result Comment: UTO X2 Performed By: #### L 500.4050, L506.1000, L501.9985, L100.0100 #### [facility] [address] [place], [address] MCV Normal 81-99 [facility] Comment on above: Order Comment: 134 Result Comment: UTO X2 Performed By: #### L 500.4050, L506.1000, L501.9985, L100.0100 #### [facility] [address] [place], [address] NEUT% Normal 47-70 [facility] Comment on above: Order Comment: 134 Result Comment: UTO X2 Performed By: #### L 500.4050, L506.1000, L501.9985, L100.0100 #### [facility] [address] [place], [address] PLT Normal 150-450 [facility] Comment on above: Order Comment: 134 Result Comment: UTO X2 Performed By: #### L 500.4050, L506.1000, L501.9985, L100.0100 #### [facility] [address] [place], [address] RBC Normal 4.2-5.4 [facility] Comment on above: Order Comment: 134 Result Comment: UTO X2 Performed By: #### L 500.4050, L506.1000, L501.9985, L100.0100 #### [facility] [address] [place], [address] RDW CV Normal 11.6-14.6 [facility] Comment on above: Order Comment: 134 Result Comment: UTO X2 Performed By: #### L 500.4050, L506.1000, L501.9985, L100.0100 #### [facility] [address] [place], [address] RDW SD Normal 35.1-43.9 [facility] Comment on above: Order Comment: 134 Result Comment: UTO X2 Performed By: #### L 500.4050, L506.1000, L501.9985, L100.0100 #### [facility] [address] [place], [address] WBC Normal 4.4-11.0 [facility] Comment on above: Order Comment: 134 Result Comment: UTO X2 Performed By: #### L 500.4050, L506.1000, L501.9985, L100.0100 #### [facility] [address] [place], [address] Comprehensive Metabolic Prof [facility] 10-08-2024 ALB Normal 3.4-4.8 [facility] Comment on above: Order Comment: 134 Result Comment: UTO X2 Performed By: #### L 500.4050, L506.1000, L501.9985, L100.0100 #### [facility] [address] [place], [address] ALK PHOS Normal 35-104 [facility] Comment on above: Order Comment: 134 Result Comment: UTO X2 Performed By: #### L 500.4050, L506.1000, L501.9985, L100.0100 #### [facility] [address] [place], [address] ALT Normal <=34 [facility] Comment on above: Order Comment: 134 Result Comment: UTO X2 Performed By: #### L 500.4050, L506.1000, L501.9985, L100.0100 #### [facility] [address] [place], [address] AST Normal <=31 [facility] Comment on above: Order Comment: 134 Result Comment: UTO X2 Performed By: #### L 500.4050, L506.1000, L501.9985, L100.0100 #### [facility] [address] [place], [address] BUN Normal 4-19 [facility] Comment on above: Order Comment: 134 Result Comment: UTO X2 Performed By: #### L 500.4050, L506.1000, L501.9985, L100.0100 #### [facility] [address] [place], [address] BUN/CRE Normal 10-20 [facility] Comment on above: Order Comment: 134 Result Comment: UTO X2 Performed By: #### L 500.4050, L506.1000, L501.9985, L100.0100 #### [facility] [address] [place], [address] Calcium Normal 7.6-11.0 [facility] Comment on above: Order Comment: 134 Result Comment: UTO X2 Performed By: #### L 500.4050, L506.1000, L501.9985, L100.0100 #### [facility] [address] [place], [address] CL Normal 98-108 [facility] Comment on above: Order Comment: 134 Result Comment: UTO X2 Performed By: #### L 500.4050, L506.1000, L501.9985, L100.0100 #### [facility] [address] [place], [address] CO2 Normal 21.0-32.0 [facility] Comment on above: Order Comment: 134 Result Comment: UTO X2 Performed By: #### L 500.4050, L506.1000, L501.9985, L100.0100 #### [facility] [address] [place], [address] CREAT,SERUM Normal 0.70-1.20 [facility] Comment on above: Order Comment: 134 Result Comment: UTO X2 Performed By: #### L 500.4050, L506.1000, L501.9985, L100.0100 #### [facility] [address] [place], [address] eGFR Normal >60 [facility] Comment on above: Order Comment: 134 Result Comment: UTO X2 Performed By: #### L 500.4050, L506.1000, L501.9985, L100.0100 #### [facility] [address] [place], [address] GAP Normal 5-15 [facility] Comment on above: Order Comment: 134 Result Comment: UTO X2 Performed By: #### L 500.4050, L506.1000, L501.9985, L100.0100 #### [facility] [address] [place], [address] GLU Normal 70-99 [facility] Comment on above: Order Comment: 134 Result Comment: UTO X2 Performed By: #### L 500.4050, L506.1000, L501.9985, L100.0100 #### [facility] [address] [place], [address] Potassium Normal 3.3-5.1 [facility] Comment on above: Order Comment: 134 Result Comment: UTO X2 Performed By: #### L 500.4050, L506.1000, L501.9985, L100.0100 #### [facility] [address] [place], [address] T BILI Normal 0.00-1.30 [facility] Comment on above: Order Comment: 134 Result Comment: UTO X2 Performed By: #### L 500.4050, L506.1000, L501.9985, L100.0100 #### [facility] [address] [place], [address] T PROT Normal 5.9-8.4 [facility] Comment on above: Order Comment: 134 Result Comment: UTO X2 Performed By: #### L 500.4050, L506.1000, L501.9985, L100.0100 #### [facility] [address] [place], [address] Comprehensive Metabolic Profil Normal 133-145 [facility] Comment on above: Order Comment: 134 Result Comment: UTO X2 Performed By: #### L 500.4050, L506.1000, L501.9985, L100.0100 #### [facility] [address] [place], [address] 27-KR-Whptevl DOrdered By: Jean Malhotra on 07-09-2024 Vitamin D 25-Hydroxy 44.8 ng/mL [facility] Comment on above: Vitamin D 25([place]) Sta tus Range Deficiency <20 ng/mL (50nmol/L) Insufficiency 20 - 30 ng/mL (50 - 75 nmol/L) Sufficiency 30 - 100 ng/mL (75 - 250 nmol/L) Toxicity >100 ng/mL (>250 nmol/L) Absolute lymphocyte countOrd ered By: Shayna Malhotra on 07-09-2024 Lymphocytes Auto (Unsp spec) [#/Vol] 0.82 10*3/uL Low 0.83-4.51 [facility] Absolute neutrophil countOrd ered By: Shayna Malhotra on 07-09-2024 Neutrophils (Bld) [#/Vol] 2.6 10*3/uL 2.0-7.7 [facility] Albumin to globulin ratioOrd ered By: Shayna Malhotra on 07-09-2024 Albumin/Globulin [Mass ratio] 0.6 {ratio} Low 0.9-2.4 [facility] Automated lymphocyte count a s percentage of total leukocytesOrdered By: Shayna Malhotra on 07-09-2024 Lymphocytes/100 WBC Auto (Unsp spec) 20.2 % 19-41 [facility] Basophil percentageOrdered B y: Shayna Malhotra on 07-09-2024 Basophils/100 WBC (Bld) 1.0 % 0-1 [facility] Bilirubin, totalOrdered By: Shayna Malhotra on 07-09-2024 Bilirubin [Mass/Vol] 0.70 mg/dL 0.20-1.00 [facility] Comment on above: For patients on eltr ombopag therapy, use of Dimension [place] TBIL is not recommended. Blood urea nitrogen (BUN)/cr eatinine ratioOrdered By: Shayna Malhotra on 07-09-2024 Urea nitrogen/Creatinine [Mass ratio] 22.2 mg/mg High 10-20 [facility] CBC W/Diff, Automatedon Absolute Lymph 0.82 X10 3/uL Low 0.83-4.51 [facility] Comment on above: Order Comment: 134 Performed By: #### L 500.4050, L506.1000, L501.9985, L100.0100 #### [facility] [address] [place], [address] Absolute Neut 2.6 X10 3/uL Normal 2.0-7.7 [facility] Comment on above: Order Comment: 134 Performed By: #### L 500.4050, L506.1000, L501.9985, L100.0100 #### [facility] [address] [place], [address] Basophils/100 WBC (Bld) 1.0 % Normal 0-1 [facility] Comment on above: Order Comment: 134 Performed By: #### L 500.4050, L506.1000, L501.9985, L100.0100 #### [facility] [address] [place], [address] Eosinophils/100 WBC (Bld) 5.9 % High 0-5 [facility] Comment on above: Order Comment: 134 Performed By: #### L 500.4050, L506.1000, L501.9985, L100.0100 #### [facility] [address] [place], [address] Erythrocyte distribution width (RBC) [Ratio] 15.9 % High 11.6-14.6 [facility] Comment on above: Order Comment: 134 Performed By: #### L 500.4050, L506.1000, L501.9985, L100.0100 #### [facility] [address] [place], [address] Hematocrit (Bld) [Volume fraction] 38.2 % Normal 37-47 [facility] Comment on above: Order Comment: 134 Performed By: #### L 500.4050, L506.1000, L501.9985, L100.0100 #### [facility] [address] [place], [address] Hemoglobin (Bld) [Mass/Vol] 12.4 g/dL Normal 12.0-15.0 [facility] Comment on above: Order Comment: 134 Performed By: #### L 500.4050, L506.1000, L501.9985, L100.0100 #### [facility] [address] [place], [address] IG% 0.200 Normal 0.0-0.9 [facility] Comment on above: Order Comment: 134 Result Comment: IG% - Immature Granulocytes (promyelocytes, myelocytes and metamyelocytes) > 1% indicates that a LEFT SHIFT is Present. Performed By: #### L 500.4050, L506.1000, L501.9985, L100.0100 #### [facility] [address] [place], [address] Lymphocytes/100 WBC (Bld) 20.2 % Normal 19-41 [facility] Comment on above: Order Comment: 134 Performed By: #### L 500.4050, L506.1000, L501.9985, L100.0100 #### [facility] [address] [place], [address] MCH (RBC) [Entitic mass] 29.0 pg Normal 27.0-32.0 [facility] Comment on above: Order Comment: 134 Performed By: #### L 500.4050, L506.1000, L501.9985, L100.0100 #### [facility] [address] [place], [address] MCHC (RBC) [Mass/Vol] 32.5 g/dL Normal 32-[address] [facility] Comment on above: Order Comment: 134 Performed By: #### L 500.4050, L506.1000, L501.9985, L100.0100 #### [facility] [address] [place], [address] MCV (RBC) [Entitic vol] 89.5 fL Normal 81-99 [facility] Comment on above: Order Comment: 134 Performed By: #### L 500.4050, L506.1000, L501.9985, L100.0100 #### [facility] [address] [place], [address] Monocytes/100 WBC (Bld) 9.6 % Normal 0-10 [facility] Comment on above: Order Comment: 134 Performed By: #### L 500.4050, L506.1000, L501.9985, L100.0100 #### [facility] [address] [place], [address] Neutrophils/100 WBC (Bld) 63.1 % Normal 47-70 [facility] Comment on above: Order Comment: 134 Performed By: #### L 500.4050, L506.1000, L501.9985, L100.0100 #### [facility] [address] [place], [address] Nucleated RBC (Bld) [#/Vol] 0 10*3/uL Normal 0-5 [facility] Comment on above: Order Comment: 134 Performed By: #### L 500.4050, L506.1000, L501.9985, L100.0100 #### [facility] [address] [place], [address] Platelet mean volume (Bld) [Entitic vol] 11.0 fL Normal 6.2-12.0 [facility] Comment on above: Order Comment: 134 Performed By: #### L 500.4050, L506.1000, L501.9985, L100.0100 #### [facility] [address] [place], [address] Platelets (Bld) [#/Vol] 116 10*3/uL Low 150-450 [facility] Comment on above: Order Comment: 134 Performed By: #### L 500.4050, L506.1000, L501.9985, L100.0100 #### [facility] [address] [place], [address] RBC (Bld) [#/Vol] 4.27 10*6/uL Normal 4.2-5.4 [facility] Comment on above: Order Comment: 134 Performed By: #### L 500.4050, L506.1000, L501.9985, L100.0100 #### [facility] [address] [place], [address] RDW SD 52.1 fl High 35.1-43.9 [facility] Comment on above: Order Comment: 134 Performed By: #### L 500.4050, L506.1000, L501.9985, L100.0100 #### [facility] [address] [place], [address] WBC (Bld) [#/Vol] 4.1 10*3/uL Low 4.4-11.0 [facility] Comment on above: Order Comment: 134 Performed By: #### L 500.4050, L506.1000, L501.9985, L100.0100 #### [facility] [address] [place], [address] Carbon dioxide measurementOr dered By: Shayna Malhotra on 07-09-2024 CO2 [Moles/Vol] 25.0 mmol/L 21.0-32.0 [facility] Chloride measurementOrdered By: Shayna Malhotra on 07-09-2024 Chloride [Moles/Vol] 107 mmol/L 98-107 [facility] Comprehensive Metabolic Prof ilon 07-09-2024 Albumin [Mass/Vol] 3.1 g/dL Low 3.2-5.0 [facility] Comment on above: Order Comment: 134 Performed By: #### L 500.4050, L506.1000, L501.9985, L100.0100 #### [facility] [address] [place], [address] Albumin/Globulin [Mass ratio] 0.6 {ratio} Low 0.9-2.4 [facility] Comment on above: Order Comment: 134 Performed By: #### L 500.4050, L506.1000, L501.9985, L100.0100 #### [facility] [address] [place], [address] ALK P 126 U/L High 45-117 [facility] Comment on above: Order Comment: 134 Performed By: #### L 500.4050, L506.1000, L501.9985, L100.0100 #### [facility] [address] [place], [address] ALT [Catalytic activity/Vol] 27 U/L Normal 13-56 [facility] Comment on above: Order Comment: 134 Performed By: #### L 500.4050, L506.1000, L501.9985, L100.0100 #### [facility] [address] [place], [address] AST [Catalytic activity/Vol] 35 U/L Normal 15-37 [facility] Comment on above: Order Comment: 134 Performed By: #### L 500.4050, L506.1000, L501.9985, L100.0100 #### [facility] [address] [place], [address] Bilirubin [Mass/Vol] 0.70 mg/dL Normal 0.20-1.00 [facility] Comment on above: Order Comment: 134 Result Comment: For patients on eltrombopag therapy, use of Dimension [place] TBIL is not recommended. Performed By: #### L 500.4050, L506.1000, L501.9985, L100.0100 #### [facility] [address] [place], [address] BUN/CRE 22.2 RATIO High 10-20 [facility] Comment on above: Order Comment: 134 Performed By: #### L 500.4050, L506.1000, L501.9985, L100.0100 #### [facility] [address] [place], [address] CA,Total 9.3 mg/dL Normal 8.5-10.1 [facility] Comment on above: Order Comment: 134 Performed By: #### L 500.4050, L506.1000, L501.9985, L100.0100 #### [facility] [address] [place], [address] Chloride [Moles/Vol] 107 mmol/L Normal 98-107 [facility] Comment on above: Order Comment: 134 Performed By: #### L 500.4050, L506.1000, L501.9985, L100.0100 #### [facility] [address] [place], [address] CO2 [Moles/Vol] 25.0 mmol/L Normal 21.0-32.0 [facility] Comment on above: Order Comment: 134 Performed By: #### L 500.4050, L506.1000, L501.9985, L100.0100 #### [facility] [address] [place], [address] Creatinine [Mass/Vol] 0.76 mg/dL Normal 0.55-1.[address] [facility] Comment on above: Order Comment: 134 Result Comment: The validity of the calculated GFR GFRAA in patients over 70 years has not been determined. Clinical correlation is essential. Performed By: #### L 500.4050, L506.1000, L501.9985, L100.0100 #### [facility] [address] [place], [address] EST GFR - AA 96 mL/min Normal >60 [facility] Comment on above: Order Comment: 134 Result Comment: Afri can Brazilian GFR Calc Performed By: #### L 500.4050, L506.1000, L501.9985, L100.0100 #### [facility] [address] [place], [address] GAP 5 Normal 5-15 [facility] Comment on above: Order Comment: 134 Performed By: #### L 500.4050, L506.1000, L501.9985, L100.0100 #### [facility] [address] [place], [address] GFR/1.73 sq M.predicted among non-blacks MDRD (S/P/Bld) [Vol rate/Area] 79 mL/min/{1.73_m2} Normal >60 [facility] Comment on above: Order Comment: 134 Result Comment: Non- GFR Calc Performed By: #### L 500.4050, L506.1000, L501.9985, L100.0100 #### [facility] [address] [place], [address] Globulin (S) [Mass/Vol] 4.9 g/dL High 2.2-4.2 [facility] Comment on above: Order Comment: 134 Performed By: #### L 500.4050, L506.1000, L501.9985, L100.0100 #### [facility] [address] [place], [address] Glucose [Mass/Vol] 168 mg/dL High 74-106 [facility] Comment on above: Order Comment: 134 Result Comment: Fast ing Glucose result greater than or equal to 126 mg/dL suggests DIABETES MELLITUS per A.D.A. criteria. Performed By: #### L 500.4050, L506.1000, L501.9985, L100.0100 #### [facility] [facility] [address] [place], [address] Potassium [Moles/Vol] 4.2 mmol/L Normal 3.5-5.[address] [facility] Comment on above: Order Comment: 134 Performed By: #### L 500.4050, L506.1000, L501.9985, L100.0100 #### [facility] [address] [place], [address] Sodium [Moles/Vol] 137 mmol/L Normal 136-145 [facility] Comment on above: Order Comment: 134 Performed By: #### L 500.4050, L506.1000, L501.9985, L100.0100 #### [facility] [address] [place], [address] T PROT 8.0 g/dL Normal 6.4-8.2 [facility] Comment on above: Order Comment: 134 Performed By: #### L 500.4050, L506.1000, L501.9985, L100.0100 #### [facility] [address] [place], [address] Urea nitrogen [Mass/Vol] 17 mg/dL Normal 7-18 [facility] Comment on above: Order Comment: 134 Performed By: #### L 500.4050, L506.1000, L501.9985, L100.0100 #### [facility] [address] [place], [address] Eosinophil percentageOrdered By: Shayna Malhotra on 07-09-2024 Eosinophils/100 WBC (Bld) 5.9 % High 0-5 [facility] Erythrocyte distribution wid th (RBC) [Ratio]Ordered By: Shayna Malhotra on 07-09-2024 Erythrocyte distribution width (RBC) [Entitic vol] 52.1 fL High 35.1-43.9 [facility] Erythrocyte distribution wid th ratioOrdered By: Shayna Malhotra on 07-09-2024 Erythrocyte distribution width (RBC) [Ratio] 15.9 % High 11.6-14.6 [facility] Erythrocyte distribution wid th standard deviationOrdered By: Shayna Malhotra on 07-09-2024 Erythrocyte distribution width (RBC) [Ratio] 52.1 fl High 35.1-43.9 [facility] Estimated glomerular filtrat ion rate (GFR) AmericanOrdered By: Shayna Malhotra on 07-09-2024 Estimated GFR (MDRD) Amer 96 mL/min >60 [facility] Comment on above: GFR Calc Glomerular filtration rate ( GFR) estimationOrdered By: Shayna Malhotra on 07-09-2024 Estimated GFR (MDRD) Non-Af Amer 79 mL/min >60 [facility] Comment on above: Non- GFR Calc GFR/1.73 sq M.predicted among non-blacks MDRD (S/P/Bld) [Vol rate/Area] 79 mL/min/{1.73_m2} >60 [facility] Comment on above: Non- GFR Calc Glucose measurementOrdered B y: Shayna Malhotra on 07-09-2024 Glucose [Mass/Vol] 168 mg/dL High 74-106 [facility] Comment on above: Fasting Glucose resu lt greater than or equal to 126 mg/dL suggests DIABETES MELLITUS per A.D.A. criteria. Hematocrit Auto (Bld) [Volum e fraction]Ordered By: Shayna Malhotra on 07-09-2024 Hematocrit (Bld) [Volume fraction] 38.2 % 37-47 [facility] Hemoglobin A1con 07-09-2024 HbA1c (Bld) [Mass fraction] 6.6 % High 3.8-5.6 [facility] Comment on above: Order Comment: 134 Result Comment: Norm al < 5.7 % Prediabetic 5.7 - 6.4 % Diabetic >or= 6.5 % Please note range changes. Performed By: #### L 500.4050, L506.1000, L501.9985, L100.0100 #### [facility] [address] [place], [address] Hemoglobin A1c percentageOrd ered By: Shayna Malhotra on 07-09-2024 HbA1c (Bld) [Mass fraction] 6.6 % High 3.8-5.6 [facility] Comment on above: Normal < 5.7 % Predi abetic 5.7 - 6.4 % Diabetic >or= 6.5 % Please note range changes. Hemoglobin measurementOrdere d By: Shayna Malhotra on 07-09-2024 Hemoglobin (Bld) [Mass/Vol] 12.4 g/dL 12.0-15.0 [facility] Immature granulocytes/100 WB C Auto (Bld)Ordered By: Shayna Malhotra on 07-09-2024 Immature granulocytes/100 WBC (Bld) 0.200 % 0.0-0.9 [facility] Comment on above: IG% - Immature Granu locytes (promyelocytes, myelocytes and metamyelocytes) > 1% indicates that a LEFT SHIFT is Present. Laboratory - Chemistry and C hemistry - challengeOrdered By: Shayna Malhotra on 07-09-2024 AST [Catalytic activity/Vol] 35 U/L 15-37 [facility] Lymphocytes Auto (Unsp spec) [#/Vol]Ordered By: Shayna Malhotra on 07-09-2024 Lymphocytes (Bld) [#/Vol] 0.82 10*3/uL Low 0.83-4.51 [facility] Lymphocytes/100 WBC Auto (Un sp spec)Ordered By: Shayna Malhotra on 07-09-2024 Lymphocytes/100 WBC (Bld) 20.2 % 19-41 [facility] MCV (mean corpuscular volume ) determinationOrdered By: Shayna Malhotra on 07-09-2024 MCV (RBC) [Entitic vol] 89.5 fL 81-99 [facility] Mean corpuscular hemoglobin (MCH) determinationOrdered By: Shayna Malhotra on 07-09-2024 MCH (RBC) [Entitic mass] 29.0 pg 27.0-32.0 [facility] Mean corpuscular hemoglobin concentration (MCHC) determinationOrdered By: Shayna Malhotra on 07-09-2024 MCHC (RBC) [Mass/Vol] 32.5 g/dL 32-[address] [facility] Mean platelet volume determi nationOrdered By: Shayna Malhotra on 07-09-2024 Platelet mean volume (Bld) [Entitic vol] 11.0 fL 6.2-12.0 [facility] Monocyte percentageOrdered B y: Shayna Malhotra on 07-09-2024 Monocytes/100 WBC (Bld) 9.6 % 0-10 [facility] Neutrophil percentageOrdered By: Shayna Malhotra on 07-09-2024 Neutrophils/100 WBC (Bld) 63.1 % 47-70 [facility] Nucleated red blood cell per centageOrdered By: Shayna Malhotra on 07-09-2024 Nucleated RBC/100 WBC (Bld) [Ratio] 0 % 0-5 [facility] Platelet countOrdered By: Maryanne Malhotra on 07-09-2024 Platelets (Bld) [#/Vol] 116 10*3/uL Low 150-450 [facility] Potassium measurementOrdered By: Shayna Malhotra on 07-09-2024 Potassium [Moles/Vol] 4.2 mmol/L 3.5-5.[address] [facility] RBC Auto (Bld) [#/Vol]Ordere d By: Shayna Malhotra on 07-09-2024 RBC (Bld) [#/Vol] 4.27 10*6/uL 4.2-5.4 [facility] Serum anion gap measurementO rdered By: Shayna Malhotra on 07-09-2024 Anion gap [Moles/Vol] 5 mmol/L 5-[address] [facility] Serum globulin measurementOr dered By: Shayna Malhotra on 07-09-2024 Globulin (S) [Mass/Vol] 4.9 g/dL High 2.2-4.2 [facility] Serum or plasma alanine burnette otransferase (ALT) measurementOrdered By: Shayna Malhotra on 07-09-2024 ALT [Catalytic activity/Vol] 27 U/L 13-56 [facility] Serum or plasma albumin kim urement (mass/volume)Ordered By: Shayna Malhotra on 07-09-2024 Albumin [Mass/Vol] 3.1 g/dL Low 3.2-5.0 [facility] Serum or plasma alkaline regina sphatase measurementOrdered By: Shayna Malhotra on 07-09-2024 ALP [Catalytic activity/Vol] 126 U/L High 45-117 [facility] Serum or plasma calcium kim urement (mass/volume)Ordered By: Shayna Malhotra on 07-09-2024 Calcium [Mass/Vol] 9.3 mg/dL 8.5-10.1 [facility] Serum or plasma creatinine m easurement (mass/volume)Ordered By: Shayna Malhotra on 07-09-2024 Creatinine [Mass/Vol] 0.76 mg/dL 0.55-1.[address] [facility] Comment on above: The validity of the calculated GFR & GFRAA in patients over 70 years has not been determined. Clinical correlation is essential. Serum or plasma urea nitroge n measurement (mass/volume)Ordered By: Shayna Malhotra on 07-09-2024 Urea nitrogen [Mass/Vol] 17 mg/dL 7-18 [facility] Sodium levelOrdered By: Paty Malhotra on 07-09-2024 Sodium [Moles/Vol] 137 mmol/L 136-145 [facility] Total proteinOrdered By: Evi Malhotra on 07-09-2024 Protein [Mass/Vol] 8.0 g/dL 6.4-8.2 [facility] Vitamin D,25 Hydroxyon 07-09 Vitamin D 25-OH 44.8 ng/mL Normal [facility] Comment on above: Order Comment: 134 Result Comment: Maricarmen min D 25(OH) Status Range Deficiency <20 ng/mL (50nmol/L) Insufficiency 20 - 30 ng/mL (50 - 75 nmol/L) Sufficiency 30 - 100 ng/mL (75 - 250 nmol/L) Toxicity >100 ng/mL (>250 nmol/L) Performed By: #### L 500.4050, L506.1000, L501.9985, L100.0100 #### [facility] [address] [place], [address] White blood cell (WBC) count Ordered By: Shayna Malhotra on 07-09-2024 WBC (Bld) [#/Vol] 4.1 10*3/uL Low 4.4-11.0 [facility] MR/BMS.Bon 07-04-2024 MR/BMS.[facility] [address] [place] [address] OFFICE VISIT Date of Service: 07/04/24 MR#: [id number] Acct: [id number] Name: VIDA NINA Rep #: [id number] : 1950 Provider: Dr. Shayna gomes MD Age/Sex: 73/F Location: [facility] Status: Signed Intake Vital [...] Ankle Pain Chief Complaint: L ankle pain Tip Mender Required: No Accompanied by: Self Is patient [...] TID #0 grams 11/24/21 07/04/24 Rx powder ([facility]) quetiapine 100 mg tablet 300 mg (3 [...] a c (more content not included)... Normal [facility] MR/BMS.Mily 05-28-2024 MR/BMS.[facility] [address] [place] [address] OFFICE VISIT Date of Service: 05/28/24 MR#: [id number] Acct: [id number] Name: VIDA NINA Rep #: [id number] : 1950 Provider: Dr. Shayna gomes MD Age/Sex: 73/F Location: [facility] Status: Signed Intake Vital Signs 01/09/23 [...] Intake Visit Reasons: Annual/Physical Chief Complaint: annual/physical Tip Mender Required: No Accompanied by: Self Is patient [...] History [facility]24 History Lite Strips) [facility] 05/28/24 History Lite Meter kit) lancets 28 gauge ([facility] 11/23/21 05/28/24 History Lancets) nystatin 100,000 unit/gram topical 1 applic topical TID #0 grams 11/24/21 05/28/24 Rx powder ([facility]) quetiapine 100 mg tablet 300 mg (3 [...] here in the office. She lives at [facility]. She checked herself in there a few years ago as she felt it was in (more content not included)... Normal [facility] Absolute lymphocyte countOrd ered By: Shayna Malhotra on 07-08-2023 Lymphocytes Auto (Unsp spec) [#/Vol] 0.97 10*3/uL 0.83-4.51 [facility] Automated lymphocyte count a s percentage of total leukocytesOrdered By: Shayna Malhotra on 07-08-2023 Lymphocytes/100 WBC Auto (Unsp spec) 21.6 % 19-41 [facility] Basophil percentageOrdered B y: Shayna Malhotra on 07-08-2023 Basophils/100 WBC (Bld) 0.7 % 0-1 [facility] Bilirubin [Mass/Vol] 0.60 mg/dL 0.20-1.00 [facility] Comment on above: For patients on eltr ombopag therapy, use of Dimension [place] TBIL is not recommended. Chloride [Moles/Vol] 109 mmol/L 98-107 [facility] Eosinophils/100 WBC (Bld) 2.4 % 0-5 [facility] Glucose [Mass/Vol] 204 mg/dL 74-106 [facility] Comment on above: Glucose result great er than or equal to 200 mg/dLsuggests DIABETES MELLITUS per A.D.A. criteria. Hemoglobin (Bld) [Mass/Vol] 12.6 g/dL 12.0-15.0 [facility] Monocytes/100 WBC (Bld) 8.7 % 0-10 [facility] Neutrophils (Bld) [#/Vol] 3.0 10*3/uL 2.0-7.7 [facility] Neutrophils/100 WBC (Bld) 66.4 % 47-70 [facility] Potassium [Moles/Vol] 4.4 mmol/L 3.5-5.[address] [facility] Protein [Mass/Vol] 8.0 g/dL 6.4-8.2 [facility] Sodium [Moles/Vol] 137 mmol/L 136-145 [facility] WBC (Bld) [#/Vol] 4.5 10*3/uL 4.4-11.0 [facility] Determination of erythrocyte mean corpuscular volume (MCV)Ordered By: Shayna Malhotra on 07-08-2023 MCV (RBC) [Entitic vol] 90.3 fL 81-99 [facility] Erythrocyte distribution wid th ratioOrdered By: Shayna Malhotra on 07-08-2023 Erythrocyte distribution width (RBC) [Ratio] 15.5 % 11.6-14.6 [facility] Erythrocyte distribution wid th standard deviationOrdered By: Shayna Malhotra on 07-08-2023 Erythrocyte distribution width (RBC) [Entitic vol] 51.9 fL 35.1-43.9 [facility] Hematocrit Auto (Bld) [Volum e fraction]Ordered By: Shayna Malhotra on 07-08-2023 Hematocrit (Bld) [Volume fraction] 39.9 % 37-47 [facility] Immature granulocytes/100 WB C Auto (Bld)Ordered By: Shayna Malhotra on 07-08-2023 Immature granulocytes/100 WBC (Bld) 0.200 % 0.0-0.9 [facility] Comment on above: IG% - Immature Granu locytes (promyelocytes, myelocytes and metamyelocytes) > 1% indicates that a LEFT SHIFT is Present. Laboratory - Chemistry and C hemistry - challengeOrdered By: Shayna Malhotra on 07-08-2023 Albumin/Globulin [Mass ratio] 0.7 {ratio} 0.9-2.4 [facility] ALP [Catalytic activity/Vol] 126 U/L 45-117 [facility] ALT [Catalytic activity/Vol] 34 U/L 13-56 [facility] CO2 [Moles/Vol] 24.0 mmol/L 21.0-32.0 [facility] Globulin (S) [Mass/Vol] 4.7 g/dL 2.2-4.2 [facility] Urea nitrogen/Creatinine [Mass ratio] 17.2 mg/mg 10-20 [facility] Laboratory - Hematology and Cell countsOrdered By: Shayna Malhotra on 07-08-2023 MCH (RBC) [Entitic mass] 28.5 pg 27.0-32.0 [facility] MCHC (RBC) [Mass/Vol] 31.6 g/dL 32-[address] [facility] Nucleated RBC/100 WBC (Bld) [Ratio] 0 % 0-5 [facility] Platelets (Bld) [#/Vol] 130 10*3/uL 150-450 [facility] No Panel InformationOrdered By: Shayna Malhotra on 07-08-2023 Estimated GFR (MDRD) Amer 83 mL/min >60 [facility] Comment on above: GFR Calc Estimated GFR (MDRD) Non-Af Amer 68 mL/min >60 [facility] Comment on above: Non- GFR Calc Vitamin D 25-Hydroxy 36.2 ng/mL [facility] Comment on above: Vitamin D 25(OH) Sta tus Range Deficiency <20 ng/mL (50nmol/L) Insufficiency 20 - 30 ng/mL (50 - 75 nmol/L) Sufficiency 30 - 100 ng/mL (75 - 250 nmol/L) Toxicity >100 ng/mL (>250 nmol/L) Platelet mean volume Robert-Ec ker (Bld) [Entitic vol]Ordered By: Shayna Malhotra on 07-08-2023 Platelet mean volume (Bld) [Entitic vol] 11.5 fL 6.2-12.0 [facility] RBC Auto (Bld) [#/Vol]Ordere d By: Shayna Malhotra on 07-08-2023 RBC (Bld) [#/Vol] 4.42 10*6/uL 4.2-5.4 [facility] Serum or plasma calcium kim urement (mass/volume)Ordered By: Shayna Malhotra on 07-08-2023 Calcium [Mass/Vol] 9.3 mg/dL 8.5-10.1 [facility] Serum or plasma creatinine m easurement (mass/volume)Ordered By: Shayna Malhotra on 07-08-2023 Creatinine [Mass/Vol] 0.87 mg/dL 0.55-1.[address] [facility] Comment on above: The validity of the calculated GFR & GFRAA in patients over 70 years has not been determined. Clinical correlation is essential. Serum or plasma urea nitroge n measurement (mass/volume)Ordered By: Shayna Malhotra on 07-08-2023 Urea nitrogen [Mass/Vol] 15 mg/dL 7-18 [facility] Thin prep Papanicolaou smear with manual screeningOrdered By: Shayna Malhotra on 07-08-2023 Thin prep Papanicolaou smear with manual screening 3.3 g/dL 3.2-5.0 [facility] Thin prep Papanicolaou smear with manual screening 38 U/L 15-37 [facility] Thin prep Papanicolaou smear with manual screening 4 5-15 [facility] Whole blood hemoglobin A1c/t otal hemoglobin ratio (mass fraction)Ordered By: Shayna Malhotra on 07-08-2023 HbA1c (Bld) [Mass fraction] 7.5 % 3.8-5.6 [facility] Comment on above: Normal < 5.7 % Predi abetic 5.7 - 6.4 % Diabetic >or= 6.5 % Please note range changes. Absolute lymphocyte countOrd ered By: [facility] [place] on 04-08-2023 Lymphocytes Auto (Unsp spec) [#/Vol] 1.16 10*3/uL 0.83-4.51 [facility] Basophil percentageOrdered B y: [facility] [place] on 04-08-2023 Basophils/100 WBC (Bld) 0.6 % 0-1 [facility] Bilirubin [Mass/Vol] 0.60 mg/dL 0.20-1.00 [facility] Comment on above: For patients on eltr ombopag therapy, use of Dimension [place] TBIL is not recommended. Chloride [Moles/Vol] 106 mmol/L 98-107 [facility] Eosinophils/100 WBC (Bld) 2.6 % 0-5 [facility] Glucose [Mass/Vol] 200 mg/dL 74-106 [facility] Comment on above: Glucose result great er than or equal to 200 mg/dLsuggests DIABETES MELLITUS per A.D.A. criteria. Neutrophils (Bld) [#/Vol] 3.3 10*3/uL 2.0-7.7 [facility] Neutrophils/100 WBC (Bld) 65.4 % 47-70 [facility] Potassium [Moles/Vol] 4.2 mmol/L 3.5-5.[address] [facility] Protein [Mass/Vol] 8.1 g/dL 6.4-8.2 [facility] Sodium [Moles/Vol] 136 mmol/L 136-145 [facility] WBC (Bld) [#/Vol] 5.0 10*3/uL 4.4-11.0 [facility] Blood erythrocytes count (nu mber/volume)Ordered By: [facility] [place] on 04-08-2023 RBC (Bld) [#/Vol] 4.50 10*6/uL 4.2-5.4 [facility] Blood hemoglobin measurement (mass/volume)Ordered By: [facility], [place] on 04-08-2023 Hemoglobin (Bld) [Mass/Vol] 12.9 g/dL 12.0-15.0 [facility] Blood lymphocytes/100 leukoc ytesOrdered By: [facility], [place] on 04-08-2023 Lymphocytes/100 WBC (Bld) 23.2 % 19-41 [facility] Blood monocytes/100 leukocyt esOrdered By: [facility], [place] on 04-08-2023 Monocytes/100 WBC (Bld) 7.8 % 0-10 [facility] Blood platelet mean volumeOr dered By: [facility], [place] on 04-08-2023 Platelet mean volume (Bld) [Entitic vol] 11.9 fL 6.2-12.0 [facility] Determination of erythrocyte mean corpuscular volume (MCV)Ordered By: [facility], [place] on 04-08-2023 MCV (RBC) [Entitic vol] 89.6 fL 81-99 [facility] Hematocrit Auto (Bld) [Volum e fraction]Ordered By: [facility], [place] on 04-08-2023 Hematocrit (Bld) [Volume fraction] 40.3 % 37-47 [facility] Laboratory - Chemistry and C hemistry - challengeOrdered By: [facility], [place] on 04-08-2023 ALP [Catalytic activity/Vol] 126 U/L 45-117 [facility] ALT [Catalytic activity/Vol] 35 U/L 13-56 [facility] CO2 [Moles/Vol] 24.0 mmol/L 21.0-32.0 [facility] Globulin (S) [Mass/Vol] 4.9 g/dL 2.2-4.2 [facility] Urea nitrogen/Creatinine [Mass ratio] 17.1 mg/mg 10-20 [facility] - Hematology and Cell countsOrdered By: [facility], [place] on 04-08-2023 Erythrocyte distribution width (RBC) [Entitic vol] 51.4 fL 35.1-43.9 [facility] Erythrocyte distribution width (RBC) [Ratio] 15.6 % 11.6-14.6 [facility] Immature granulocytes/100 WBC (Bld) 0.400 % 0.0-0.9 [facility] Comment on above: IG% - Immature Granu locytes (promyelocytes, myelocytes and metamyelocytes) > 1% indicates that a LEFT SHIFT is Present. MCH (RBC) [Entitic mass] 28.7 pg 27.0-32.0 [facility] Nucleated RBC/100 WBC (Bld) [Ratio] 0 % 0-5 [facility] MCHC Auto (RBC) [Mass/Vol]Or dered By: [facility], [place] on 04-08-2023 MCHC (RBC) [Mass/Vol] 32.0 g/dL 32-[address] [facility] No Panel InformationOrdered By: [facility], [place] on 04-08-2023 Estimated GFR (MDRD) Amer 82 mL/min >60 [facility] Comment on above: GFR Calc Estimated GFR (MDRD) Non-Af Amer 68 mL/min >60 [facility] Comment on above: Non- GFR Calc Vitamin D 25-Hydroxy 43.2 ng/mL [facility] Comment on above: Vitamin D 25(OH) Sta tus Range Deficiency <20 ng/mL (50nmol/L) Insufficiency 20 - 30 ng/mL (50 - 75 nmol/L) Sufficiency 30 - 100 ng/mL (75 - 250 nmol/L) Toxicity >100 ng/mL (>250 nmol/L) Platelets bldOrdered By: [facility] on 04-08-2023 Platelets (Bld) [#/Vol] 119 10*3/uL 150-450 [facility] Serum or plasma albumin kim urement (mass/volume)Ordered By: [facility], [place] on 04-08-2023 Albumin [Mass/Vol] 3.2 g/dL 3.2-5.0 [facility] Serum or plasma albumin/glob ulin mass ratioOrdered By: [facility], [place] on 04-08-2023 Albumin/Globulin [Mass ratio] 0.7 {ratio} 0.9-2.4 [facility] Serum or plasma calcium kim urement (mass/volume)Ordered By: [facility], [place] on 04-08-2023 Calcium [Mass/Vol] 9.1 mg/dL 8.5-10.1 [facility] Serum or plasma creatinine m easurement (mass/volume)Ordered By: [facility], [place] on 04-08-2023 Creatinine [Mass/Vol] 0.88 mg/dL 0.55-1.[address] [facility] Comment on above: The validity of the calculated GFR & GFRAA in patients over 70 years has not been determined. Clinical correlation is essential. Serum or plasma urea nitroge n measurement (mass/volume)Ordered By: [facility], [place] on 04-08-2023 Urea nitrogen [Mass/Vol] 15 mg/dL 7-18 [facility] Thin prep Papanicolaou smear with manual screeningOrdered By: [facility], [place] on 04-08-2023 Thin prep Papanicolaou smear with manual screening 36 U/L 15-37 [facility] Thin prep Papanicolaou smear with manual screening 6 5-15 [facility] Whole blood hemoglobin A1c/t otal hemoglobin ratio (mass fraction)Ordered By: [facility], [place] on 04-08-2023 HbA1c (Bld) [Mass fraction] 7.5 % 3.8-5.6 [facility] Comment on above: Normal < 5.7 % Predi abetic 5.7 - 6.4 % Diabetic >or= 6.5 % Please note range changes. Absolute lymphocyte countOrd ered By: Shayna Malhotra on 10-13-2022 Lymphocytes Auto (Unsp spec) [#/Vol] 1.32 10*3/uL 0.83-4.51 [facility] Basophil percentageOrdered B y: Shayna Malhotra on 10-13-2022 Basophils/100 WBC (Bld) 0.6 % 0-1 [facility] Bilirubin [Mass/Vol] 0.40 mg/dL 0.20-1.00 [facility] Comment on above: For patients on eltr ombopag therapy, use of Dimension [place] TBIL is not recommended. Chloride [Moles/Vol] 106 mmol/L 98-107 [facility] Eosinophils/100 WBC (Bld) 3.5 % 0-5 [facility] Glucose [Mass/Vol] 232 mg/dL 74-106 [facility] Comment on above: Glucose result great er than or equal to 200 mg/dLsuggests DIABETES MELLITUS per A.D.A. criteria. Neutrophils (Bld) [#/Vol] 3.2 10*3/uL 2.0-7.7 [facility] Neutrophils/100 WBC (Bld) 60.7 % 47-70 [facility] Potassium [Moles/Vol] 4.7 mmol/L 3.5-5.[address] [facility] Protein [Mass/Vol] 8.1 g/dL 6.4-8.2 [facility] Sodium [Moles/Vol] 137 mmol/L 136-145 [facility] WBC (Bld) [#/Vol] 5.2 10*3/uL 4.4-11.0 [facility] Blood erythrocytes count (nu mber/volume)Ordered By: Shayna Malhotra on 10-13-2022 RBC (Bld) [#/Vol] 4.62 10*6/uL 4.2-5.4 [facility] Blood hemoglobin measurement (mass/volume)Ordered By: Shayna Malhotra on 10-13-2022 Hemoglobin (Bld) [Mass/Vol] 13.1 g/dL 12.0-15.0 [facility] Blood lymphocytes/100 leukoc ytesOrdered By: Shayna Malhotra on 10-13-2022 Lymphocytes/100 WBC (Bld) 25.4 % 19-41 [facility] Blood monocytes/100 leukocyt esOrdered By: Shayna Malhotra on 10-13-2022 Monocytes/100 WBC (Bld) 9.6 % 0-10 [facility] Blood platelet mean volumeOr dered By: Shayna Malhotra on 10-13-2022 Platelet mean volume (Bld) [Entitic vol] 11.1 fL 6.2-12.0 [facility] Determination of erythrocyte mean corpuscular volume (MCV)Ordered By: Shayna Malhotra on 10-13-2022 MCV (RBC) [Entitic vol] 90.3 fL 81-99 [facility] Hematocrit Auto (Bld) [Volum e fraction]Ordered By: Shayna Malhotra on 10-13-2022 Hematocrit (Bld) [Volume fraction] 41.7 % 37-47 [facility] Laboratory - Chemistry and C hemistry - challengeOrdered By: Shayna Malhotra on 10-13-2022 ALP [Catalytic activity/Vol] 153 U/L 45-117 [facility] ALT [Catalytic activity/Vol] 45 U/L 13-56 [facility] CO2 [Moles/Vol] 25.0 mmol/L 21.0-32.0 [facility] Globulin (S) [Mass/Vol] 4.9 g/dL 2.2-4.2 [facility] Urea nitrogen/Creatinine [Mass ratio] 15.7 mg/mg 10-20 [facility] Laboratory - Hematology and Cell countsOrdered By: Shayna Malhotra on 10-13-2022 Erythrocyte distribution width (RBC) [Entitic vol] 50.5 fL 35.1-43.9 [facility] Erythrocyte distribution width (RBC) [Ratio] 15.1 % 11.6-14.6 [facility] Immature granulocytes/100 WBC (Bld) 0.200 % 0.0-0.9 [facility] Comment on above: IG% - Immature Granu locytes (promyelocytes, myelocytes and metamyelocytes) > 1% indicates that a LEFT SHIFT is Present. MCH (RBC) [Entitic mass] 28.4 pg 27.0-32.0 [facility] Nucleated RBC/100 WBC (Bld) [Ratio] 0 % 0-5 [facility] MCHC Auto (RBC) [Mass/Vol]Or dered By: Shayna Malhotra on 10-13-2022 MCHC (RBC) [Mass/Vol] 31.4 g/dL 32-[address] [facility] No Panel InformationOrdered By: Shayna Malhotra on 10-13-2022 Estimated GFR (MDRD) Amer 80 mL/min >60 [facility] Comment on above: GFR Calc Estimated GFR (MDRD) Non-Af Amer 66 mL/min >60 [facility] Comment on above: Non- GFR Calc Vitamin D 25-Hydroxy 57.3 ng/mL [facility] Comment on above: Vitamin D 25(OH) Sta tus Range Deficiency <20 ng/mL (50nmol/L) Insufficiency 20 - 30 ng/mL (50 - 75 nmol/L) Sufficiency 30 - 100 ng/mL (75 - 250 nmol/L) Toxicity >100 ng/mL (>250 nmol/L) Platelets bldOrdered By: Evi Malhotra on 10-13-2022 Platelets (Bld) [#/Vol] 139 10*3/uL 150-450 [facility] Serum or plasma albumin kim urement (mass/volume)Ordered By: Shayna Malhotra on 10-13-2022 Albumin [Mass/Vol] 3.2 g/dL 3.2-5.0 [facility] Serum or plasma albumin/glob ulin mass ratioOrdered By: Shayna Malhotra on 10-13-2022 Albumin/Globulin [Mass ratio] 0.7 {ratio} 0.9-2.4 [facility] Serum or plasma calcium kim urement (mass/volume)Ordered By: Shayna Malhotra on 05-10-2023 Calcium [Mass/Vol] 9.5 mg/dL 8.5-10.1 [facility] Serum or plasma creatinine m easurement (mass/volume)Ordered By: Shayna Malhotra on 10-13-2022 Creatinine [Mass/Vol] 0.89 mg/dL 0.55-1.[address] [facility] Comment on above: The validity of the calculated GFR & GFRAA in patients over 70 years has not been determined. Clinical correlation is essential. Serum or plasma urea nitroge n measurement (mass/volume)Ordered By: Shayna Malhotra on 10-13-2022 Urea nitrogen [Mass/Vol] 14 mg/dL 7-18 [facility] Thin prep Papanicolaou smear with manual screeningOrdered By: Shayna Malhotra on 10-13-2022 Thin prep Papanicolaou smear with manual screening 49 U/L 15-37 [facility] Thin prep Papanicolaou smear with manual screening 6 5-15 [facility] No Panel InformationOrdered By: Shayna Malhotra on 08-12-2022 C-Peptide 2.9 ng/mL 1.1-4.4 [facility] Comment on above: C-Peptide reference interval is for fasting patients.Performed at: [facility] Director: Suhas Deal PhD, Phone: [phone] Absolute lymphocyte countOrd ered By: Shayna Malhotra on 07-13-2022 Lymphocytes Auto (Unsp spec) [#/Vol] 1.18 10*3/uL 0.83-4.51 [facility] Basophil percentageOrdered B y: Shayna Malhotra on 07-13-2022 Basophils/100 WBC (Bld) 0.7 % 0-1 [facility] Bilirubin [Mass/Vol] 0.90 mg/dL 0.20-1.00 [facility] Comment on above: For patients on eltr ombopag therapy, use of Dimension [place] TBIL is not recommended. Chloride [Moles/Vol] 104 mmol/L 98-107 [facility] Eosinophils/100 WBC (Bld) 3.3 % 0-5 [facility] Glucose [Mass/Vol] 314 mg/dL 74-106 [facility] Comment on above: Glucose result great er than or equal to 200 mg/dLsuggests DIABETES MELLITUS per A.D.A. criteria. Neutrophils (Bld) [#/Vol] 3.5 10*3/uL 2.0-7.7 [facility] Neutrophils/100 WBC (Bld) 64.8 % 47-70 [facility] Potassium [Moles/Vol] 5.1 mmol/L 3.5-5.[address] [facility] Comment on above: Slight Hemolysis, Re sult may be falsely increased. Protein [Mass/Vol] 8.2 g/dL 6.4-8.2 [facility] Sodium [Moles/Vol] 135 mmol/L 136-145 [facility] WBC (Bld) [#/Vol] 5.4 10*3/uL 4.4-11.0 [facility] Blood erythrocytes count (nu mber/volume)Ordered By: Shayna Malhotra on 07-13-2022 RBC (Bld) [#/Vol] 4.51 10*6/uL 4.2-5.4 [facility] Blood hemoglobin measurement (mass/volume)Ordered By: Shayna Malhotra on 07-13-2022 Hemoglobin (Bld) [Mass/Vol] 12.8 g/dL 12.0-15.0 [facility] Blood lymphocytes/100 leukoc ytesOrdered By: Shayna Malhotra on 07-13-2022 Lymphocytes/100 WBC (Bld) 21.9 % 19-41 [facility] Blood monocytes/100 leukocyt esOrdered By: Shayna Malhotra on 07-13-2022 Monocytes/100 WBC (Bld) 9.1 % 0-10 [facility] Blood platelet mean volumeOr dered By: Shayna Malhotra on 07-13-2022 Platelet mean volume (Bld) [Entitic vol] 11.2 fL 6.2-12.0 [facility] Determination of erythrocyte mean corpuscular volume (MCV)Ordered By: Shayna Malhotra on 07-13-2022 MCV (RBC) [Entitic vol] 87.1 fL 81-99 [facility] Hematocrit Auto (Bld) [Volum e fraction]Ordered By: Shayna Malhotra on 07-13-2022 Hematocrit (Bld) [Volume fraction] 39.3 % 37-47 [facility] Laboratory - Chemistry and C hemistry - challengeOrdered By: Shayna Malhotra on 07-13-2022 ALP [Catalytic activity/Vol] 159 U/L 45-117 [facility] ALT [Catalytic activity/Vol] 35 U/L 13-56 [facility] CO2 [Moles/Vol] 23.0 mmol/L 21.0-32.0 [facility] Globulin (S) [Mass/Vol] 4.9 g/dL 2.2-4.2 [facility] Urea nitrogen/Creatinine [Mass ratio] 16.6 mg/mg 10-20 [facility] - Hematology and Cell countsOrdered By: Shayna Malhotra on 07-13-2022 Erythrocyte distribution width (RBC) [Entitic vol] 49.6 fL 35.1-43.9 [facility] Erythrocyte distribution width (RBC) [Ratio] 15.7 % 11.6-14.6 [facility] Immature granulocytes/100 WBC (Bld) 0.200 % 0.0-0.9 [facility] Comment on above: IG% - Immature Granu locytes (promyelocytes, myelocytes and metamyelocytes) > 1% indicates that a LEFT SHIFT is Present. MCH (RBC) [Entitic mass] 28.4 pg 27.0-32.0 [facility] Nucleated RBC/100 WBC (Bld) [Ratio] 0 % 0-5 [facility] MCHC Auto (RBC) [Mass/Vol]Or dered By: Shayna Malhotra on 07-13-2022 MCHC (RBC) [Mass/Vol] 32.6 g/dL 32-[address] [facility] No Panel InformationOrdered By: Shayna Malhotra on 07-13-2022 Estimated GFR (MDRD) Amer 74 mL/min >60 [facility] Comment on above: GFR Calc Estimated GFR (MDRD) Non-Af Amer 61 mL/min >60 [facility] Comment on above: Non- GFR Calc Vitamin D 25-Hydroxy 47.5 ng/mL [facility] Comment on above: Vitamin D 25(OH) Sta tus Range Deficiency <20 ng/mL (50nmol/L) Insufficiency 20 - 30 ng/mL (50 - 75 nmol/L) Sufficiency 30 - 100 ng/mL (75 - 250 nmol/L) Toxicity >100 ng/mL (>250 nmol/L) Platelets bldOrdered By: Evi Malhotra on 07-13-2022 Platelets (Bld) [#/Vol] 132 10*3/uL 150-450 [facility] Serum or plasma albumin kim urement (mass/volume)Ordered By: Shayna Malhotra on 07-13-2022 Albumin [Mass/Vol] 3.3 g/dL 3.2-5.0 [facility] Serum or plasma albumin/glob ulin mass ratioOrdered By: Shayna Malhotra on 07-13-2022 Albumin/Globulin [Mass ratio] 0.7 {ratio} 0.9-2.4 [facility] Serum or plasma calcium kim urement (mass/volume)Ordered By: Shayna Malhotra on 07-13-2022 Calcium [Mass/Vol] 9.6 mg/dL 8.5-10.1 [facility] Serum or plasma creatinine m easurement (mass/volume)Ordered By: Shayna Malhotra on 07-13-2022 Creatinine [Mass/Vol] 0.97 mg/dL 0.55-1.[address] [facility] Comment on above: The validity of the calculated GFR & GFRAA in patients over 70 years has not been determined. Clinical correlation is essential. Serum or plasma urea nitroge n measurement (mass/volume)Ordered By: Shayna Malhotra on 07-13-2022 Urea nitrogen [Mass/Vol] 16 mg/dL 7-18 [facility] Thin prep Papanicolaou smear with manual screeningOrdered By: Shayna Malhotra on 07-13-2022 Thin prep Papanicolaou smear with manual screening 48 U/L 15-37 [facility] Comment on above: Slight Hemolysis, Re sult may be falsely increased. Thin prep Papanicolaou smear with manual screening 8 5-15 [facility] Absolute lymphocyte countOrd ered By: [facility], [place] on 06-08-2022 Lymphocytes Auto (Unsp spec) [#/Vol] 1.23 10*3/uL 0.83-4.51 [facility] Basophil percentageOrdered B y: [facility], [place] on 06-08-2022 Basophils/100 WBC (Bld) 0.6 % 0-1 [facility] Bilirubin [Mass/Vol] 0.50 mg/dL 0.20-1.00 [facility] Comment on above: For patients on eltr ombopag therapy, use of Dimension [place] TBIL is not recommended. Chloride [Moles/Vol] 103 mmol/L 98-107 [facility] Cholesterol [Mass/Vol] 116 mg/dL <200 [facility] Comment on above: <200 mg/dL Desirable 200-240 mg/dL Borderline >240 mg/dL High Risk Eosinophils/100 WBC (Bld) 3.3 % 0-5 [facility] Glucose [Mass/Vol] 266 mg/dL 74-106 [facility] Comment on above: Glucose result great er than or equal to 200 mg/dLsuggests DIABETES MELLITUS per A.D.A. criteria. Neutrophils (Bld) [#/Vol] 2.9 10*3/uL 2.0-7.7 [facility] Neutrophils/100 WBC (Bld) 61.4 % 47-70 [facility] Potassium [Moles/Vol] 4.3 mmol/L 3.5-5.[address] [facility] Protein [Mass/Vol] 7.6 g/dL 6.4-8.2 [facility] Sodium [Moles/Vol] 134 mmol/L 136-145 [facility] Triglyceride [Mass/Vol] 86 mg/dL <199 [facility] Comment on above: The drugs N-Acetylcy steine and Metamizole may falsely depress this assay.Serum Triglycerides Reference Interval Normal <150 mg/dL Borderline high 150 - 199 mg/dL High 200 - 499 mg/dL Very High > or = 500 mg/dL WBC (Bld) [#/Vol] 4.8 10*3/uL 4.4-11.0 [facility] Blood erythrocytes count (nu mber/volume)Ordered By: [facility], [place] on 06-08-2022 RBC (Bld) [#/Vol] 4.47 10*6/uL 4.2-5.4 [facility] Blood hemoglobin measurement (mass/volume)Ordered By: [facility], [place] on 06-08-2022 Hemoglobin (Bld) [Mass/Vol] 12.4 g/dL 12.0-15.0 [facility] Blood lymphocytes/100 leukoc ytesOrdered By: [facility], [place] on 06-08-2022 Lymphocytes/100 WBC (Bld) 25.7 % 19-41 [facility] Blood monocytes/100 leukocyt esOrdered By: [facility], [place] on 06-08-2022 Monocytes/100 WBC (Bld) 8.8 % 0-10 [facility] Blood platelet mean volumeOr dered By: [facility], [place] on 06-08-2022 Platelet mean volume (Bld) [Entitic vol] 11.1 fL 6.2-12.0 [facility] Determination of erythrocyte mean corpuscular volume (MCV)Ordered By: [facility], [place] on 06-08-2022 MCV (RBC) [Entitic vol] 88.8 fL 81-99 [facility] Hematocrit Auto (Bld) [Volum e fraction]Ordered By: [facility], [place] on 06-08-2022 Hematocrit (Bld) [Volume fraction] 39.7 % 37-47 [facility] Laboratory - Chemistry and C hemistry - challengeOrdered By: [facility], [place] on 06-08-2022 ALP [Catalytic activity/Vol] 142 U/L 45-117 [facility] ALT [Catalytic activity/Vol] 36 U/L 13-56 [facility] CO2 [Moles/Vol] 22.0 mmol/L 21.0-32.0 [facility] Globulin (S) [Mass/Vol] 4.8 g/dL 2.2-4.2 [facility] Urea nitrogen/Creatinine [Mass ratio] 17.1 mg/mg 10-20 [facility] - Hematology and Cell countsOrdered By: [facility], [place] on 06-08-2022 Erythrocyte distribution width (RBC) [Entitic vol] 48.8 fL 35.1-43.9 [facility] Erythrocyte distribution width (RBC) [Ratio] 14.9 % 11.6-14.6 [facility] Immature granulocytes/100 WBC (Bld) 0.200 % 0.0-0.9 [facility] Comment on above: IG% - Immature Granu locytes (promyelocytes, myelocytes and metamyelocytes) > 1% indicates that a LEFT SHIFT is Present. MCH (RBC) [Entitic mass] 27.7 pg 27.0-32.0 [facility] Nucleated RBC/100 WBC (Bld) [Ratio] 0 % 0-5 [facility] MCHC Auto (RBC) [Mass/Vol]Or dered By: [facility], [place] on 06-08-2022 MCHC (RBC) [Mass/Vol] 31.2 g/dL 32-[address] [facility] No Panel InformationOrdered By: [facility], [place] on 06-08-2022 Estimated GFR (MDRD) Amer 82 mL/min >60 [facility] Comment on above: GFR Calc Estimated GFR (MDRD) Non-Af Amer 68 mL/min >60 [facility] Comment on above: Non- GFR Calc Vitamin D 25-Hydroxy 56.8 ng/mL [facility] Comment on above: Vitamin D 25(OH) Sta tus Range Deficiency <20 ng/mL (50nmol/L) Insufficiency 20 - 30 ng/mL (50 - 75 nmol/L) Sufficiency 30 - 100 ng/mL (75 - 250 nmol/L) Toxicity >100 ng/mL (>250 nmol/L) Platelets bldOrdered By: [facility] on 06-08-2022 Platelets (Bld) [#/Vol] 145 10*3/uL 150-450 [facility] Serum or plasma albumin kim urement (mass/volume)Ordered By: [facility], [place] on 06-08-2022 Albumin [Mass/Vol] 2.8 g/dL 3.2-5.0 [facility] Serum or plasma albumin/glob ulin mass ratioOrdered By: [facility], [place] on 06-08-2022 Albumin/Globulin [Mass ratio] 0.6 {ratio} 0.9-2.4 [facility] Serum or plasma calcium kim urement (mass/volume)Ordered By: [facility], [place] on 06-08-2022 Calcium [Mass/Vol] 9.0 mg/dL 8.5-10.1 [facility] Serum or plasma cholesterol in HDL measurement (mass/volume)Ordered By: [facility], [place] on 06-08-2022 Cholesterol in HDL [Mass/Vol] 58 mg/dL >40 [facility] Comment on above: The drugs N-Acetylcy steine and Metamizole may falsely depress this assay. Reference Range HDL <40 mg/dL Low HDL Cholesterol HDL >or= 60 mg/dL High HDL Cholesterol Serum or plasma cholesterol in VLDL measurement (mass/volume)Ordered By: [facility], [place] on 06-08-2022 Cholesterol in VLDL [Mass/Vol] 17 mg/dL 5-40 [facility] Serum or plasma creatinine m easurement (mass/volume)Ordered By: [facility], [place] on 06-08-2022 Creatinine [Mass/Vol] 0.88 mg/dL 0.55-1.[address] [facility] Comment on above: The validity of the calculated GFR & GFRAA in patients over 70 years has not been determined. Clinical correlation is essential. Serum or plasma low density lipoprotein (LDL) cholesterol measurement (mass/volume)Ordered By: [facility], [place] on 06-08-2022 Cholesterol in LDL [Mass/Vol] 41 mg/dL 0-130 [facility] Serum or plasma urea nitroge n measurement (mass/volume)Ordered By: [facility], [place] on 06-08-2022 Urea nitrogen [Mass/Vol] 15 mg/dL 7-18 [facility] Thin prep Papanicolaou smear with manual screeningOrdered By: [facility], [place] on 06-08-2022 Thin prep Papanicolaou smear with manual screening 39 U/L 15-37 [facility] Thin prep Papanicolaou smear with manual screening 9 5-15 [facility] Whole blood hemoglobin A1c/t otal hemoglobin ratio (mass fraction)Ordered By: [facility], [place] on 06-08-2022 HbA1c (Bld) [Mass fraction] 8.8 % 3.8-5.6 [facility] Comment on above: Normal < 5.7 % Predi abetic 5.7 - 6.4 % Diabetic >or= 6.5 % Please note range changes. Absolute lymphocyte countOrd ered By: Shayna Malhotra on 04-13-2022 Lymphocytes Auto (Unsp spec) [#/Vol] 1.30 10*3/uL 0.83-4.51 [facility] Basophil percentageOrdered B y: hSayna Malhotra on 04-13-2022 Basophils/100 WBC (Bld) 0.2 % 0-1 [facility] Bilirubin [Mass/Vol] 0.40 mg/dL 0.20-1.00 [facility] Comment on above: For patients on eltr ombopag therapy, use of Dimension [place] TBIL is not recommended. Chloride [Moles/Vol] 106 mmol/L 98-107 [facility] Eosinophils/100 WBC (Bld) 3.5 % 0-5 [facility] Glucose [Mass/Vol] 149 mg/dL 74-106 [facility] Comment on above: Fasting Glucose resu lt greater than or equal to 126 mg/dL suggests DIABETES MELLITUS per A.D.A. criteria. Neutrophils (Bld) [#/Vol] 2.5 10*3/uL 2.0-7.7 [facility] Neutrophils/100 WBC (Bld) 54.6 % 47-70 [facility] Potassium [Moles/Vol] 4.5 mmol/L 3.5-5.[address] [facility] Protein [Mass/Vol] 7.8 g/dL 6.4-8.2 [facility] Sodium [Moles/Vol] 138 mmol/L 136-145 [facility] WBC (Bld) [#/Vol] 4.6 10*3/uL 4.4-11.0 [facility] Blood erythrocytes count (nu mber/volume)Ordered By: Shayna Malhotra on 04-13-2022 RBC (Bld) [#/Vol] 4.45 10*6/uL 4.2-5.4 [facility] Blood hemoglobin measurement (mass/volume)Ordered By: Shayna Malhotra on 04-13-2022 Hemoglobin (Bld) [Mass/Vol] 12.9 g/dL 12.0-15.0 [facility] Blood lymphocytes/100 leukoc ytesOrdered By: Shayna Malhotra on 04-13-2022 Lymphocytes/100 WBC (Bld) 28.4 % 19-41 [facility] Blood monocytes/100 leukocyt esOrdered By: Shayna Malhotra on 04-13-2022 Monocytes/100 WBC (Bld) 12.9 % 0-10 [facility] Blood platelet mean volumeOr dered By: Shayna Malhotra on 04-13-2022 Platelet mean volume (Bld) [Entitic vol] 11.1 fL 6.2-12.0 [facility] Determination of erythrocyte mean corpuscular volume (MCV)Ordered By: Shayna Malhotra on 04-13-2022 MCV (RBC) [Entitic vol] 90.8 fL 81-99 [facility] Hematocrit Auto (Bld) [Volum e fraction]Ordered By: Shayna Malhotra on 04-13-2022 Hematocrit (Bld) [Volume fraction] 40.4 % 37-47 [facility] - Chemistry and C hemistry - challengeOrdered By: Shayna Malhotra on 04-13-2022 ALP [Catalytic activity/Vol] 144 U/L 45-117 [facility] ALT [Catalytic activity/Vol] 32 U/L 13-56 [facility] CO2 [Moles/Vol] 23.0 mmol/L 21.0-32.0 [facility] Globulin (S) [Mass/Vol] 4.8 g/dL 2.2-4.2 [facility] Urea nitrogen/Creatinine [Mass ratio] 15.3 mg/mg 10-20 [facility] - Hematology and Cell countsOrdered By: Shayna Malhotra on 04-13-2022 Erythrocyte distribution width (RBC) [Entitic vol] 47.8 fL 35.1-43.9 [facility] Erythrocyte distribution width (RBC) [Ratio] 14.3 % 11.6-14.6 [facility] Immature granulocytes/100 WBC (Bld) 0.400 % 0.0-0.9 [facility] Comment on above: IG% - Immature Granu locytes (promyelocytes, myelocytes and metamyelocytes) > 1% indicates that a LEFT SHIFT is Present. MCH (RBC) [Entitic mass] 29.0 pg 27.0-32.0 [facility] Nucleated RBC/100 WBC (Bld) [Ratio] 0 % 0-5 [facility] MCHC Auto (RBC) [Mass/Vol]Or dered By: Shayna Malhotra on 04-13-2022 MCHC (RBC) [Mass/Vol] 31.9 g/dL 32-[address] [facility] No Panel InformationOrdered By: Shayna Malhotra on 04-13-2022 Estimated GFR (MDRD) Amer 78 mL/min >60 [facility] Comment on above: GFR Calc Estimated GFR (MDRD) Non-Af Amer 65 mL/min >60 [facility] Comment on above: Non- GFR Calc Vitamin D 25-Hydroxy 63.8 ng/mL [facility] Comment on above: Vitamin D 25(OH) Sta tus Range Deficiency <20 ng/mL (50nmol/L) Insufficiency 20 - 30 ng/mL (50 - 75 nmol/L) Sufficiency 30 - 100 ng/mL (75 - 250 nmol/L) Toxicity >100 ng/mL (>250 nmol/L) Platelets bldOrdered By: Evi Malhotra on 04-13-2022 Platelets (Bld) [#/Vol] 157 10*3/uL 150-450 [facility] Serum or plasma albumin kim urement (mass/volume)Ordered By: Shayna Malhotra on 04-13-2022 Albumin [Mass/Vol] 3.0 g/dL 3.2-5.0 [facility] Serum or plasma albumin/glob ulin mass ratioOrdered By: Shayna Malhotra on 04-13-2022 Albumin/Globulin [Mass ratio] 0.6 {ratio} 0.9-2.4 [facility] Serum or plasma calcium kim urement (mass/volume)Ordered By: Shayna Malhotra on 04-13-2022 Calcium [Mass/Vol] 9.0 mg/dL 8.5-10.1 [facility] Serum or plasma creatinine m easurement (mass/volume)Ordered By: Shayna Malhotra on 04-13-2022 Creatinine [Mass/Vol] 0.92 mg/dL 0.55-1.[address] [facility] Comment on above: The validity of the calculated GFR & GFRAA in patients over 70 years has not been determined. Clinical correlation is essential. Serum or plasma urea nitroge n measurement (mass/volume)Ordered By: Shayna Malhotra on 04-13-2022 Urea nitrogen [Mass/Vol] 14 mg/dL 7-18 [facility] Thin prep Papanicolaou smear with manual screeningOrdered By: Shayna Malhotra on 04-13-2022 Thin prep Papanicolaou smear with manual screening 40 U/L 15-37 [facility] Thin prep Papanicolaou smear with manual screening 9 5-15 [facility] Basophil percentageon 2021 Bilirubin [Mass/Vol] 0.80 mg/dL 0.20-1.00 [facility] Work Phone: Comment on above: For patients on eltr ombopag therapy, use of Dimension [place] TBIL is not recommended. Chloride [Moles/Vol] 103 mmol/L 98-107 [facility] Work Phone: Glucose [Mass/Vol] 218 mg/dL 74-106 [facility] Work Phone: Comment on above: Glucose result great er than or equal to 200 mg/dLsuggests DIABETES MELLITUS per A.D.A. criteria. Potassium [Moles/Vol] 4.2 mmol/L 3.5-5.[address] [facility] Work Phone: Protein [Mass/Vol] 8.0 g/dL 6.4-8.2 [facility] Work Phone: Sodium [Moles/Vol] 135 mmol/L 136-145 [facility] Work Phone: WBC (Bld) [#/Vol] 8.6 10*3/uL 4.4-11.0 [facility] Work Phone: Blood erythrocytes count (nu mber/volume)on 01-01-2022 RBC (Bld) [#/Vol] 4.72 10*6/uL 4.2-5.4 [facility] Work Phone: Blood hemoglobin measurement (mass/volume)on 01-01-2022 Hemoglobin (Bld) [Mass/Vol] 13.5 g/dL 12.0-15.0 [facility] Work Phone: Blood platelet mean volumeon 01-01-2022 Platelet mean volume (Bld) [Entitic vol] 11.0 fL 6.2-12.0 [facility] Work Phone: Determination of erythrocyte mean corpuscular volume (MCV)on 01-01-2022 MCV (RBC) [Entitic vol] 86.2 fL 81-99 [facility] Work Phone: Hematocrit Auto (Bld) [Volum e fraction]on 01-01-2022 Hematocrit (Bld) [Volume fraction] 40.7 % 37-47 [facility] Work Phone: Laboratory - Chemistry and C hemistry - challengeon 01-01-2022 ALP [Catalytic activity/Vol] 140 U/L 45-117 [facility] Work Phone: ALT [Catalytic activity/Vol] 35 U/L 13-56 [facility] Work Phone: CO2 [Moles/Vol] 23.0 mmol/L 21.0-32.0 [facility] Work Phone: Globulin (S) [Mass/Vol] 4.9 g/dL 2.2-4.2 [facility] Work Phone: Urea nitrogen/Creatinine [Mass ratio] 13.8 mg/mg 10-20 [facility] Work Phone: Laboratory - Hematology and Cell countson 01-01-2022 Erythrocyte distribution width (RBC) [Entitic vol] 55.6 fL 35.1-43.9 [facility] Work Phone: Erythrocyte distribution width (RBC) [Ratio] 17.5 % 11.6-14.6 [facility] Work Phone: MCH (RBC) [Entitic mass] 28.6 pg 27.0-32.0 [facility] Work Phone: MCHC Auto (RBC) [Mass/Vol]on 01-01-2022 MCHC (RBC) [Mass/Vol] 33.2 g/dL 32-[address] [facility] Work Phone: No Panel Informationon 01-01 Estimated GFR (MDRD) Amer 64 mL/min >60 [facility] Work Phone: Comment on above: GFR Calc Estimated GFR (MDRD) Non-Af Amer 53 mL/min >60 [facility] Work Phone: Comment on above: Non- GFR Calc Platelets bldon 01-01-2022 Platelets (Bld) [#/Vol] 141 10*3/uL 150-450 [facility] [facility] Work Phone: Serum or plasma albumin kim urement (mass/volume)on 01-01-2022 Albumin [Mass/Vol] 3.1 g/dL 3.2-5.0 [facility] Work Phone: Serum or plasma albumin/glob ulin mass ratioon 01-01-2022 Albumin/Globulin [Mass ratio] 0.6 {ratio} 0.9-2.4 [facility] Work Phone: Serum or plasma calcium kim urement (mass/volume)on 01-01-2022 Calcium [Mass/Vol] 9.3 mg/dL 8.5-10.1 [facility] Work Phone: Serum or plasma creatinine m easurement (mass/volume)on 01-01-2022 Creatinine [Mass/Vol] 1.09 mg/dL 0.55-1.[address] [facility] Work Phone: Comment on above: The validity of the calculated GFR & GFRAA in patients over 70 years has not been determined. Clinical correlation is essential. Serum or plasma urea nitroge n measurement (mass/volume)on 01-01-2022 Urea nitrogen [Mass/Vol] 15 mg/dL 7-18 [facility] Work Phone: Thin prep Papanicolaou smear with manual screeningon 01-01-2022 Thin prep Papanicolaou smear with manual screening 36 U/L 15-37 [facility] Work Phone: Thin prep Papanicolaou smear with manual screening 9 5-15 [facility] Work Phone: Whole blood hemoglobin A1c/t otal hemoglobin ratio (mass fraction)on 01-01-2022 HbA1c (Bld) [Mass fraction] 8.7 % 3.8-5.6 [facility] Work Phone: Comment on above: Normal < 5.7 % Predi abetic 5.7 - 6.4 % Diabetic >or= 6.5 % Please note range changes. Basophil percentageon 2021 Bilirubin [Mass/Vol] 0.40 mg/dL 0.20-1.00 [facility] Work Phone: Comment on above: For patients on eltr ombopag therapy, use of Dimension [place] TBIL is not recommended. Chloride [Moles/Vol] 103 mmol/L 98-107 [facility] Work Phone: Glucose [Mass/Vol] 216 mg/dL 74-106 [facility] Work Phone: Comment on above: Glucose result great er than or equal to 200 mg/dLsuggests DIABETES MELLITUS per A.D.A. criteria. Potassium [Moles/Vol] 4.4 mmol/L 3.5-5.[address] [facility] Work Phone: Protein [Mass/Vol] 6.5 g/dL 6.4-8.2 [facility] Work Phone: Sodium [Moles/Vol] 136 mmol/L 136-145 [facility] Work Phone: WBC (Bld) [#/Vol] 6.2 10*3/uL 4.4-11.0 [facility] Work Phone: Blood erythrocytes count (nu mber/volume)on 12-01-2021 RBC (Bld) [#/Vol] 4.09 10*6/uL 4.2-5.4 [facility] Blood hemoglobin measurement (mass/volume)on 12-01-2021 Hemoglobin (Bld) [Mass/Vol] 11.3 g/dL 12.0-15.0 [facility] Work Phone: Blood platelet mean volumeon 12-01-2021 Platelet mean volume (Bld) [Entitic vol] 10.8 fL 6.2-12.0 [facility] Work Phone: Determination of erythrocyte mean corpuscular volume (MCV)on 12-01-2021 MCV (RBC) [Entitic vol] 85.8 fL 81-99 [facility] Work Phone: Comment on above: Delta: 79.2 on 11/27 Hematocrit Auto (Bld) [Volum e fraction]on 12-01-2021 Hematocrit (Bld) [Volume fraction] 35.1 % 37-47 [facility] Work Phone: Laboratory - Chemistry and C hemistry - challengeon 12-01-2021 ALP [Catalytic activity/Vol] 130 U/L 45-117 [facility] Work Phone: ALT [Catalytic activity/Vol] 48 U/L 13-56 [facility] Work Phone: CK [Catalytic activity/Vol] 27 U/L 26-192 [facility] Work Phone: CO2 [Moles/Vol] 27.0 mmol/L 21.0-32.0 [facility] Work Phone: Globulin (S) [Mass/Vol] 4.2 g/dL 2.2-4.2 [facility] Work Phone: Urea nitrogen/Creatinine [Mass ratio] 31.2 mg/mg 10-20 [facility] Work Phone: Laboratory - Hematology and Cell countson 12-01-2021 Erythrocyte distribution width (RBC) [Entitic vol] 48.3 fL 35.1-43.9 [facility] Work Phone: Erythrocyte distribution width (RBC) [Ratio] 15.4 % 11.6-14.6 [facility] Work Phone: MCH (RBC) [Entitic mass] 27.6 pg 27.0-32.0 [facility] Work Phone: MCHC Auto (RBC) [Mass/Vol]on 12-01-2021 MCHC (RBC) [Mass/Vol] 32.2 g/dL 32-[address] [facility] Work Phone: Comment on above: Delta: 34.7 on 11/27 No Panel Informationon 12-01 Estimated GFR (MDRD) Amer 91 mL/min >60 [facility] Work Phone: Comment on above: GFR Calc Estimated GFR (MDRD) Non-Af Amer 76 mL/min >60 [facility] Work Phone: Comment on above: Non- GFR Calc Platelets bldon 12-01-2021 Platelets (Bld) [#/Vol] 231 10*3/uL 150-450 [facility] Work Phone: Serum or plasma albumin kim urement (mass/volume)on 12-01-2021 Albumin [Mass/Vol] 2.3 g/dL 3.2-5.0 [facility] Work Phone: Serum or plasma albumin/glob ulin mass ratioon 12-01-2021 Albumin/Globulin [Mass ratio] 0.5 {ratio} 0.9-2.4 [facility] Work Phone: Serum or plasma calcium kim urement (mass/volume)on 12-01-2021 Calcium [Mass/Vol] 8.8 mg/dL 8.5-10.1 [facility] Work Phone: Serum or plasma creatinine m easurement (mass/volume)on 12-01-2021 Creatinine [Mass/Vol] 0.80 mg/dL 0.55-1.[address] [facility] Work Phone: Comment on above: The validity of the calculated GFR & GFRAA in patients over 70 years has not been determined. Clinical correlation is essential. Serum or plasma urea nitroge n measurement (mass/volume)on 12-01-2021 Urea nitrogen [Mass/Vol] 25 mg/dL 7-18 [facility] Work Phone: Thin prep Papanicolaou smear with manual screeningon 12-01-2021 Thin prep Papanicolaou smear with manual screening 69 U/L 15-37 [facility] Work Phone: Thin prep Papanicolaou smear with manual screening 6 5-15 [facility] Work Phone: Whole blood hemoglobin A1c/t otal hemoglobin ratio (mass fraction)on 12-01-2021 HbA1c (Bld) [Mass fraction] 10.6 % 3.8-5.6 [facility] Work Phone: Comment on above: Normal < 5.7 % Predi abetic 5.7 - 6.4 % Diabetic >or= 6.5 % Please note range changes. Basophil percentageon 2021 Bilirubin [Mass/Vol] 0.40 mg/dL 0.20-1.00 [facility] Work Phone: Comment on above: For patients on eltr ombopag therapy, use of Dimension [place] TBIL is not recommended. Chloride [Moles/Vol] 102 mmol/L 98-107 [facility] Work Phone: Glucose [Mass/Vol] 256 mg/dL 74-106 [facility] Work Phone: Comment on above: Glucose result great er than or equal to 200 mg/dLsuggests DIABETES MELLITUS per A.D.A. criteria. Potassium [Moles/Vol] 4.4 mmol/L 3.5-5.[address] [facility] Work Phone: Protein [Mass/Vol] 7.0 g/dL 6.4-8.2 [facility] Work Phone: Sodium [Moles/Vol] 133 mmol/L 136-145 [facility] Work Phone: WBC (Bld) [#/Vol] 5.6 10*3/uL 4.4-11.0 [facility] Work Phone: Blood erythrocytes count (nu mber/volume)on 11-27-2021 RBC (Bld) [#/Vol] 4.47 10*6/uL 4.2-5.4 [facility] Work Phone: Blood hemoglobin measurement (mass/volume)on 11-27-2021 Hemoglobin (Bld) [Mass/Vol] 12.3 g/dL 12.0-15.0 [facility] Work Phone: Blood platelet mean volumeon 11-27-2021 Platelet mean volume (Bld) [Entitic vol] 11.9 fL 6.2-12.0 [facility] Work Phone: Determination of erythrocyte mean corpuscular volume (MCV)on 11-27-2021 MCV (RBC) [Entitic vol] 79.2 fL 81-99 [facility] Work Phone: Comment on above: Delta: 83.4 on 11/24 Hematocrit Auto (Bld) [Volum e fraction]on 11-27-2021 Hematocrit (Bld) [Volume fraction] 35.4 % 37-47 [facility] Work Phone: Laboratory - Chemistry and C hemistry - challengeon 11-27-2021 ALP [Catalytic activity/Vol] 127 U/L 45-117 [facility] Work Phone: ALT [Catalytic activity/Vol] 28 U/L 13-56 [facility] Work Phone: CO2 [Moles/Vol] 25.0 mmol/L 21.0-32.0 [facility] Work Phone: Globulin (S) [Mass/Vol] 4.6 g/dL 2.2-4.2 [facility] Work Phone: Urea nitrogen/Creatinine [Mass ratio] 15.9 mg/mg 10-20 [facility] Work Phone: Laboratory - Hematology and Cell countson 11-27-2021 Erythrocyte distribution width (RBC) [Entitic vol] 41.4 fL 35.1-43.9 [facility] Work Phone: Erythrocyte distribution width (RBC) [Ratio] 14.5 % 11.6-14.6 [facility] Work Phone: MCH (RBC) [Entitic mass] 27.5 pg 27.0-32.0 [facility] Work Phone: MCHC Auto (RBC) [Mass/Vol]on 11-27-2021 MCHC (RBC) [Mass/Vol] 34.7 g/dL 32-36 [facility] Work Phone: No Panel Informationon 11-27 Estimated GFR (MDRD) Amer 108 mL/min >60 [facility] Work Phone: Comment on above: GFR Calc Estimated GFR (MDRD) Non-Af Amer 89 mL/min >60 [facility] Work Phone: Comment on above: Non- GFR Calc Platelets bldon 11-27-2021 Platelets (Bld) [#/Vol] 154 10*3/uL 150-450 [facility] Work Phone: Serum or plasma albumin kim urement (mass/volume)on 11-27-2021 Albumin [Mass/Vol] 2.4 g/dL 3.2-5.0 [facility] Work Phone: Serum or plasma albumin/glob ulin mass ratioon 11-27-2021 Albumin/Globulin [Mass ratio] 0.5 {ratio} 0.9-2.4 [facility] Work Phone: Serum or plasma calcium kim urement (mass/volume)on 11-27-2021 Calcium [Mass/Vol] 8.9 mg/dL 8.5-10.1 [facility] Work Phone: Serum or plasma creatinine m easurement (mass/volume)on 11-27-2021 Creatinine [Mass/Vol] 0.69 mg/dL 0.55-1.[address] [facility] Work Phone: Comment on above: The validity of the calculated GFR & GFRAA in patients over 70 years has not been determined. Clinical correlation is essential. Serum or plasma urea nitroge n measurement (mass/volume)on 11-27-2021 Urea nitrogen [Mass/Vol] 11 mg/dL 7-18 [facility] Work Phone: Thin prep Papanicolaou smear with manual screeningon 11-27-2021 Thin prep Papanicolaou smear with manual screening 31 U/L 15-37 [facility] Work Phone: Thin prep Papanicolaou smear with manual screening 6 5-15 [facility] Work Phone: Absolute lymphocyte counton 11-24-2021 Lymphocytes Auto (Unsp spec) [#/Vol] 1.01 10*3/uL 0.83-4.51 [facility] Work Phone: Basophil percentageon 2021 Basophil percentage 3.5 mg/dL 2.5-4.9 [facility] Work Phone: Basophils/100 WBC (Bld) 0.4 % 0-1 [facility] Work Phone: Bilirubin [Mass/Vol] 0.40 mg/dL 0.20-1.00 [facility] Work Phone: Comment on above: For patients on eltr ombopag therapy, use of Dimension [place] TBIL is not recommended. Chloride [Moles/Vol] 105 mmol/L 98-107 [facility] Work Phone: Eosinophils/100 WBC (Bld) 2.3 % 0-5 [facility] Work Phone: Glucose [Mass/Vol] 321 mg/dL 74-106 [facility] Work Phone: Comment on above: Glucose result great er than or equal to 200 mg/dLsuggests DIABETES MELLITUS per A.D.A. criteria. Neutrophils (Bld) [#/Vol] 3.8 10*3/uL 2.0-7.7 [facility] Work Phone: Neutrophils/100 WBC (Bld) 66.8 % 47-70 [facility] Work Phone: Potassium [Moles/Vol] 4.2 mmol/L 3.5-5.[address] [facility] Work Phone: Protein [Mass/Vol] 6.6 g/dL 6.4-8.2 [facility] Work Phone: Sodium [Moles/Vol] 133 mmol/L 136-145 [facility] Work Phone: WBC (Bld) [#/Vol] 5.6 10*3/uL 4.4-11.0 [facility] Work Phone: Blood erythrocytes count (nu mber/volume)on 11-24-2021 RBC (Bld) [#/Vol] 3.91 10*6/uL 4.2-5.4 [facility] Work Phone: Blood hemoglobin measurement (mass/volume)on 11-24-2021 Hemoglobin (Bld) [Mass/Vol] 11.0 g/dL 12.0-15.0 [facility] Work Phone: Blood lymphocytes/100 leukoc yteson 11-24-2021 Lymphocytes/100 WBC (Bld) 17.9 % 19-41 [facility] Work Phone: Blood monocytes/100 leukocyt eson 11-24-2021 Monocytes/100 WBC (Bld) 12.1 % 0-10 [facility] Work Phone: Blood platelet mean volumeon 11-24-2021 Platelet mean volume (Bld) [Entitic vol] 11.4 fL 6.2-12.0 [facility] Work Phone: Determination of erythrocyte mean corpuscular volume (MCV)on 11-24-2021 MCV (RBC) [Entitic vol] 83.4 fL 81-99 [facility] Work Phone: Glucose Glucometer (BldC) [M ass/Vol]on 11-24-2021 Glucose [Mass/Vol] 307 mg/dL 74-106 [facility] Work Phone: Comment on above: MANAGEMENT OF PATIEN T CARE PER NURSING PROTOCOL Glucose [Mass/Vol] 339 mg/dL 74-106 [facility] Work Phone: Comment on above: MANAGEMENT OF PATIEN T CARE PER NURSING PROTOCOL Hematocrit Auto (Bld) [Volum e fraction]on 11-24-2021 Hematocrit (Bld) [Volume fraction] 32.6 % 37-47 [facility] Work Phone: Laboratory - Chemistry and C hemistry - challengeon 11-24-2021 ALP [Catalytic activity/Vol] 116 U/L 45-117 [facility] Work Phone: ALT [Catalytic activity/Vol] 33 U/L 13-56 [facility] Work Phone: CK [Catalytic activity/Vol] 500 U/L 26-192 [facility] Work Phone: CO2 [Moles/Vol] 22.0 mmol/L 21.0-32.0 [facility] Work Phone: Globulin (S) [Mass/Vol] 4.4 g/dL 2.2-4.2 [facility] Work Phone: Magnesium [Mass/Vol] 2.3 mg/dL 1.6-2.6 [facility] Work Phone: Urea nitrogen/Creatinine [Mass ratio] 24.3 mg/mg 10-20 [facility] Work Phone: Laboratory - Hematology and Cell countson 11-24-2021 Erythrocyte distribution width (RBC) [Entitic vol] 45.1 fL 35.1-43.9 [facility] Work Phone: Erythrocyte distribution width (RBC) [Ratio] 14.9 % 11.6-14.6 [facility] Work Phone: Immature granulocytes/100 WBC (Bld) 0.500 % 0.0-0.9 [facility] Work Phone: Comment on above: IG% - Immature Granu locytes (promyelocytes, myelocytes and metamyelocytes) > 1% indicates that a LEFT SHIFT is Present. MCH (RBC) [Entitic mass] 28.1 pg 27.0-32.0 [facility] Work Phone: Nucleated RBC/100 WBC (Bld) [Ratio] 0 % 0-5 [facility] Work Phone: MCHC Auto (RBC) [Mass/Vol]on 11-24-2021 MCHC (RBC) [Mass/Vol] 33.7 g/dL 32-[address] [facility] Work Phone: No Panel Informationon 11-24 Estimated Creatinine Clearance Calc 51.54 ml/min [facility] Work Phone: Estimated GFR (MDRD) Amer 76 mL/min >60 [facility] Work Phone: Comment on above: GFR Calc Estimated GFR (MDRD) Non-Af Amer 62 mL/min >60 [facility] Work Phone: Comment on above: Non- GFR Calc Platelets bldon 11-24-2021 Platelets (Bld) [#/Vol] 107 10*3/uL 150-450 [facility] Work Phone: Serum or plasma albumin kim urement (mass/volume)on 11-24-2021 Albumin [Mass/Vol] 2.2 g/dL 3.2-5.0 [facility] Work Phone: Serum or plasma albumin/glob ulin mass ratioon 11-24-2021 Albumin/Globulin [Mass ratio] 0.5 {ratio} 0.9-2.4 [facility] Work Phone: Serum or plasma calcium kim urement (mass/volume)on 11-24-2021 Calcium [Mass/Vol] 8.5 mg/dL 8.5-10.1 [facility] Work Phone: Serum or plasma creatinine m easurement (mass/volume)on 11-24-2021 Creatinine [Mass/Vol] 0.94 mg/dL 0.55-1.[address] [facility] Work Phone: Comment on above: The validity of the calculated GFR & GFRAA in patients over 70 years has not been determined. Clinical correlation is essential. Serum or plasma urea nitroge n measurement (mass/volume)on 11-24-2021 Urea nitrogen [Mass/Vol] 23 mg/dL 7-18 [facility] Work Phone: Thin prep Papanicolaou smear with manual screeningon 11-24-2021 Thin prep Papanicolaou smear with manual screening 49 U/L 15-37 [facility] Work Phone: Thin prep Papanicolaou smear with manual screening 6 5-15 [facility] Work Phone: Absolute lymphocyte counton 11-22-2021 Lymphocytes Auto (Unsp spec) [#/Vol] 0.27 10*3/uL 0.83-4.51 [facility] Work Phone: Basophil percentageon 2021 Lactate [Moles/Vol] 2.7 mmol/L 0.4-2.0 [facility] Work Phone: Comment on above: Critical Result(s) C alled at: 19:01:05 11/22/2021 by: Sintia Hernandez to Pamela Ely Results read back by same. Basophil percentage >100 SEEN /hpf 0-5 [facility] Work Phone: Lactate [Moles/Vol] 4.1 mmol/L 0.4-2.0 [facility] Work Phone: Comment on above: Critical Result(s) C alled at: 14:35:39 11/22/2021 by: Derik Florez. Milad Cordova RN (ER). Results read back by same. Basophils/100 WBC (Bld) 0.3 % 0-1 [facility] Work Phone: Bilirubin [Mass/Vol] 1.00 mg/dL 0.20-1.00 [facility] Work Phone: Comment on above: For patients on eltr ombopag therapy, use of Dimension [place] TBIL is not recommended. Chloride [Moles/Vol] 97 mmol/L 98-107 [facility] Work Phone: Eosinophils/100 WBC (Bld) 0.0 % 0-5 [facility] Work Phone: Glucose [Mass/Vol] 358 mg/dL 74-106 [facility] Work Phone: Comment on above: Glucose result great er than or equal to 200 mg/dLsuggests DIABETES MELLITUS per A.D.A. criteria. Neutrophils (Bld) [#/Vol] 2.6 10*3/uL 2.0-7.7 [facility] Work Phone: Neutrophils/100 WBC (Bld) 89.3 % 47-70 [facility] Work Phone: Potassium [Moles/Vol] 4.9 mmol/L 3.5-5.[address] [facility] Work Phone: Comment on above: Moderate Hemolysis, Result may be falsely increased. Protein [Mass/Vol] 7.8 g/dL 6.4-8.2 [facility] Work Phone: Sodium [Moles/Vol] 130 mmol/L 136-145 [facility] Work Phone: WBC (Bld) [#/Vol] 2.9 10*3/uL 4.4-11.0 [facility] Work Phone: Bilirubin Test strip Ql (U)o n 11-22-2021 Bilirubin Ql (U) Negative Negative [facility] Work Phone: Blood erythrocytes count (nu mber/volume)on 11-22-2021 RBC (Bld) [#/Vol] 4.66 10*6/uL 4.2-5.4 [facility] Work Phone: Blood hemoglobin measurement (mass/volume)on 11-22-2021 Hemoglobin (Bld) [Mass/Vol] 12.9 g/dL 12.0-15.0 [facility] Work Phone: Blood lymphocytes/100 leukoc yteson 11-22-2021 Lymphocytes/100 WBC (Bld) 9.4 % 19-41 [facility] Work Phone: Blood manual differential co mment interpretation (narrative result)on 11-22-2021 Manual differential comment Neftali (Bld) [Interp] SCANNED [facility] Work Phone: Comment on above: FEW BANDS NOTED Blood monocytes/100 leukocyt eson 11-22-2021 Monocytes/100 WBC (Bld) 0.7 % 0-10 [facility] Work Phone: Blood platelet mean volumeon 11-22-2021 Platelet mean volume (Bld) [Entitic vol] 11.0 fL 6.2-12.0 [facility] Work Phone: Determination of erythrocyte mean corpuscular volume (MCV)on 11-22-2021 MCV (RBC) [Entitic vol] 83.7 fL 81-99 [facility] Work Phone: Hematocrit Auto (Bld) [Volum e fraction]on 11-22-2021 Hematocrit (Bld) [Volume fraction] 39.0 % 37-47 [facility] Work Phone: INR in Blood by Coagulation assayon 11-22-2021 INR Coag (Bld) [Relative time] 1.6 {INR} [facility] Work Phone: Ketones Test strip Ql (U)on 11-22-2021 Ketones Ql (U) 15 mg/dl Negative [facility] Work Phone: Laboratory - Chemistry and C hemistry - challengeon 11-22-2021 ALP [Catalytic activity/Vol] 170 U/L 45-117 [facility] Work Phone: ALT [Catalytic activity/Vol] 33 U/L 13-56 [facility] Work Phone: CO2 [Moles/Vol] 22.0 mmol/L 21.0-32.0 [facility] Work Phone: Globulin (S) [Mass/Vol] 5.0 g/dL 2.2-4.2 [facility] Work Phone: Urea nitrogen/Creatinine [Mass ratio] 19.1 mg/mg 10-20 [facility] Work Phone: Laboratory - Coagulationon 0 11-22-2021 aPTT Coag (Bld) [Time] 33.5 s 24.1-36.2 [facility] Work Phone: PT Coag (PPP) [Time] 18.6 s 11.7-14.9 [facility] Work Phone: Laboratory - Hematology and Cell countson 11-22-2021 Erythrocyte distribution width (RBC) [Entitic vol] 44.4 fL 35.1-43.9 [facility] Work Phone: Erythrocyte distribution width (RBC) [Ratio] 14.6 % 11.6-14.6 [facility] Work Phone: Immature granulocytes/100 WBC (Bld) 0.300 % 0.0-0.9 [facility] Work Phone: Comment on above: IG% - Immature Granu locytes (promyelocytes, myelocytes and metamyelocytes) > 1% indicates that a LEFT SHIFT is Present. MCH (RBC) [Entitic mass] 27.7 pg 27.0-32.0 [facility] Work Phone: Nucleated RBC/100 WBC (Bld) [Ratio] 0 % 0-5 [facility] Work Phone: Laboratory - Microbiology an d Antimicrobial susceptibilityon 11-22-2021 SARS-CoV-2 (COVID-19) RNA SALLY+probe Ql (Unsp spec) Not detected Not Detect [facility] Work Phone: Comment on above: Normal [...] 11-22-2021 MCHC (RBC) [Mass/Vol] 33.1 g/dL 32-36 [facility] Work Phone: Mucus LM Ql (Urine sed)on Mucus Ql (Urine sed) 0 SEEN /hpf [facility] Work Phone: Nitrite Test strip Ql (U)on 11-22-2021 Nitrite Ql (U) Negative Negative [facility] Work Phone: No Panel Informationon 11-22 Troponin I High Sensitivity 217 pg/mL 3.0-54.0 [facility] Work Phone: Comment on above: Critical Result(s) C alled at: 20:27:57 11/22/2021 by: Sintia Hernandez to Anthony Butcher. Results read back by same. Please Note: New Test Units and Gender Specific Reference Ranges. For more information see Policy Stat Procedure [place] High Sensitivity Troponin (TNIH) and attachments. Troponin I High Sensitivity 274 pg/mL 3.0-54.0 [facility] Work Phone: Comment on above: Critical Result(s) C alled at: 17:12:08 11/22/2021 by: Sintia Hernandez by Lila Cordova. Results read back by same. Please Note: New Test Units and Gender Specific Reference Ranges. For more information see Policy Stat Procedure [place] High Sensitivity Troponin (TNIH) and attachments. Estimated Creatinine Clearance Calc 34.36 ml/min [facility] Work Phone: Estimated GFR (MDRD) Amer 48 mL/min >60 [facility] Work Phone: Comment on above: GFR Calc Estimated GFR (MDRD) Non-Af Amer 39 mL/min >60 [facility] Work Phone: Comment on above: Non- GFR Calc Platelets bldon 11-22-2021 Platelets (Bld) [#/Vol] 121 10*3/uL 150-450 [facility] Work Phone: Protein Test strip Ql (U)on 11-22-2021 Protein Ql (U) 100 mg/dl Negative [facility] Work Phone: Review by pathologiston 11-04 Pathologist review Neftali (Unsp spec) [Interp] May foll [facility] Work Phone: Pathologist review Neftali (Unsp spec) [Interp] Reviewed [facility] Work Phone: Comment on above: Previous reported re sult: Analisa jacobson Edited by: BELLA on 11/23/21:[id number] Thrombocytopenia.Clinical correlation necessary.Cedric Cardoza M.D. 11/23/21 AMENDED REPORT 11/23/21 [id number] PATH REV previously reported as: Analisa jacobson Serum or plasma albumin kim urement (mass/volume)on 11-22-2021 Albumin [Mass/Vol] 2.8 g/dL 3.2-5.0 [facility] Work Phone: Serum or plasma albumin/glob ulin mass ratioon 11-22-2021 Albumin/Globulin [Mass ratio] 0.6 {ratio} 0.9-2.4 [facility] Work Phone: Serum or plasma calcium kim urement (mass/volume)on 11-22-2021 Calcium [Mass/Vol] 8.9 mg/dL 8.5-10.1 [facility] Work Phone: Serum or plasma creatinine m easurement (mass/volume)on 11-22-2021 Creatinine [Mass/Vol] 1.41 mg/dL 0.55-1.[address] [facility] Work Phone: Comment on above: The validity of the calculated GFR & GFRAA in patients over 70 years has not been determined. Clinical correlation is essential. Serum or plasma urea nitroge n measurement (mass/volume)on 11-22-2021 Urea nitrogen [Mass/Vol] 27 mg/dL 7-18 [facility] Work Phone: Squamous epithelial cells de tection in urine sediment by light microscopyon 11-22-2021 Epithelial cells.squamous LM Ql (Urine sed) 0 SEEN /hpf 5-10 [facility] Work Phone: Thin prep Papanicolaou smear with manual screeningon 11-22-2021 Thin prep Papanicolaou smear with manual screening 65 U/L 15-37 [facility] Work Phone: Comment on above: Moderate Hemolysis, Result may be falsely increased. Thin prep Papanicolaou smear with manual screening 11 5-15 [facility] Work Phone: Urine blood detectionon 11-04 RBC Ql (U) 250 /ul Negative [facility] Work Phone: RBC Ql (U) 0 SEEN /hpf 0-5 [facility] Work Phone: Urine clarityon 11-22-2021 Clarity (U) Cloudy Clear [facility] Work Phone: Urine color determinationon 11-22-2021 Color (U) Yellow Yellow [facility] Work Phone: Urine glucose detectionon Glucose Ql (U) 250 mg/dl Normal [facility] Work Phone: Urine leukocyte esterase det ection by dipstickon 11-22-2021 Leukocyte esterase Test strip Ql (U) 500 /ul Negative [facility] Work Phone: Urine pHon 11-22-2021 pH (U) 6.0 [pH] 5.0 - 8.0 [facility] Work Phone: Urine sediment bacteria coun t by microscopy (number/high power field)on 11-22-2021 Bacteria LM.HPF (Urine sed) [#/Area] 3 /[HPF] None Seen [facility] Work Phone: Urine specific gravity measu rementon 11-22-2021 Specific gravity (U) [Rel density] 1.020 1.002-1.03 0 [facility] Work Phone: Urobilinogen Auto test strip Ql (U)on 11-22-2021 Urobilinogen Ql (U) Normal mg/dl Normal [facility] Work Phone: Whole blood hemoglobin A1c/t otal hemoglobin ratio (mass fraction)on 11-22-2021 HbA1c (Bld) [Mass fraction] 10.2 % 3.8-5.6 [facility] Work Phone: Comment on above: Normal < 5.7 % Predi abetic 5.7 - 6.4 % Diabetic >or= 6.5 % Please note range changes. Whole blood hemoglobin A1c/t otal hemoglobin ratio (mass fraction)on 10-27-2021 HbA1c (Bld) [Mass fraction] 8.3 % 3.8-5.6 [facility] Work Phone: Comment on above: Normal < 5.7 % Predi abetic 5.7 - 6.4 % Diabetic >or= 6.5 % Please note range changes. Absolute lymphocyte counton 10-13-2021 Lymphocytes Auto (Unsp spec) [#/Vol] 1.22 10*3/uL 0.83-4.51 [facility] Work Phone: Basophil percentageon 2021 Basophils/100 WBC (Bld) 0.3 % 0-1 [facility] Work Phone: Bilirubin [Mass/Vol] 0.50 mg/dL 0.20-1.00 [facility] Work Phone: Comment on above: For patients on eltr ombopag therapy, use of Dimension [place] TBIL is not recommended. Chloride [Moles/Vol] 102 mmol/L 98-107 [facility] Work Phone: Eosinophils/100 WBC (Bld) 1.7 % 0-5 [facility] Work Phone: Glucose [Mass/Vol] 259 mg/dL 74-106 [facility] Work Phone: Comment on above: Glucose result great er than or equal to 200 mg/dLsuggests DIABETES MELLITUS per A.D.A. criteria. Neutrophils (Bld) [#/Vol] 5.1 10*3/uL 2.0-7.7 [facility] Work Phone: Neutrophils/100 WBC (Bld) 70.8 % 47-70 [facility] Work Phone: Potassium [Moles/Vol] 4.4 mmol/L 3.5-5.[address] [facility] Work Phone: Protein [Mass/Vol] 7.4 g/dL 6.4-8.2 [facility] Work Phone: Sodium [Moles/Vol] 134 mmol/L 136-145 [facility] Work Phone: WBC (Bld) [#/Vol] 7.1 10*3/uL 4.4-11.0 [facility] Work Phone: Blood erythrocytes count (nu mber/volume)on 10-13-2021 RBC (Bld) [#/Vol] 4.21 10*6/uL 4.2-5.4 [facility] Work Phone: Blood hemoglobin measurement (mass/volume)on 10-13-2021 Hemoglobin (Bld) [Mass/Vol] 12.1 g/dL 12.0-15.0 [facility] Work Phone: Blood lymphocytes/100 leukoc yteson 10-13-2021 Lymphocytes/100 WBC (Bld) 17.1 % 19-41 [facility] Work Phone: Blood monocytes/100 leukocyt eson 10-13-2021 Monocytes/100 WBC (Bld) 9.8 % 0-10 [facility] Work Phone: Blood platelet mean volumeon 10-13-2021 Platelet mean volume (Bld) [Entitic vol] 10.7 fL 6.2-12.0 [facility] Work Phone: Determination of erythrocyte mean corpuscular volume (MCV)on 10-13-2021 MCV (RBC) [Entitic vol] 86.2 fL 81-99 [facility] Work Phone: Hematocrit Auto (Bld) [Volum e fraction]on 10-13-2021 Hematocrit (Bld) [Volume fraction] 36.3 % 37-47 [facility] Work Phone: Laboratory - Chemistry and C hemistry - challengeon 10-13-2021 ALP [Catalytic activity/Vol] 169 U/L 45-117 [facility] Work Phone: ALT [Catalytic activity/Vol] 31 U/L 13-56 [facility] Work Phone: CO2 [Moles/Vol] 25.0 mmol/L 21.0-32.0 [facility] Work Phone: Globulin (S) [Mass/Vol] 4.5 g/dL 2.2-4.2 [facility] Work Phone: Urea nitrogen/Creatinine [Mass ratio] 14.3 mg/mg 10-20 [facility] Work Phone: Laboratory - Hematology and Cell countson 10-13-2021 Erythrocyte distribution width (RBC) [Entitic vol] 45.6 fL 35.1-43.9 [facility] Work Phone: Erythrocyte distribution width (RBC) [Ratio] 14.4 % 11.6-14.6 [facility] Work Phone: Immature granulocytes/100 WBC (Bld) 0.300 % 0.0-0.9 [facility] Work Phone: Comment on above: IG% - Immature Granu locytes (promyelocytes, myelocytes and metamyelocytes) > 1% indicates that a LEFT SHIFT is Present. MCH (RBC) [Entitic mass] 28.7 pg 27.0-32.0 [facility] Work Phone: Nucleated RBC/100 WBC (Bld) [Ratio] 0 % 0-5 [facility] Work Phone: MCHC Auto (RBC) [Mass/Vol]on 10-13-2021 MCHC (RBC) [Mass/Vol] 33.3 g/dL 32-[address] [facility] Work Phone: No Panel Informationon 10-13 Estimated GFR (MDRD) Amer 79 mL/min >60 [facility] Work Phone: Comment on above: GFR Calc Estimated GFR (MDRD) Non-Af Amer 66 mL/min >60 [facility] Work Phone: Comment on above: Non- GFR Calc Vitamin D 25-Hydroxy 67.4 ng/mL [facility] Work Phone: Comment on above: Vitamin D 25(OH) Sta tus Range Deficiency <20 ng/mL (50nmol/L) Insufficiency 20 - 30 ng/mL (50 - 75 nmol/L) Sufficiency 30 - 100 ng/mL (75 - 250 nmol/L) Toxicity >100 ng/mL (>250 nmol/L) Platelets bldon 10-13-2021 Platelets (Bld) [#/Vol] 158 10*3/uL 150-450 [facility] Work Phone: Serum or plasma albumin kim urement (mass/volume)on 10-13-2021 Albumin [Mass/Vol] 2.9 g/dL 3.2-5.0 [facility] Work Phone: Serum or plasma albumin/glob ulin mass ratioon 10-13-2021 Albumin/Globulin [Mass ratio] 0.6 {ratio} 0.9-2.4 [facility] Work Phone: Serum or plasma calcium kim urement (mass/volume)on 10-13-2021 Calcium [Mass/Vol] 8.8 mg/dL 8.5-10.1 [facility] Work Phone: Serum or plasma creatinine m easurement (mass/volume)on 10-13-2021 Creatinine [Mass/Vol] 0.91 mg/dL 0.55-1.[address] [facility] Work Phone: Comment on above: The validity of the calculated GFR & GFRAA in patients over 70 years has not been determined. Clinical correlation is essential. Serum or plasma urea nitroge n measurement (mass/volume)on 10-13-2021 Urea nitrogen [Mass/Vol] 13 mg/dL 7-18 [facility] Work Phone: Thin prep Papanicolaou smear with manual screeningon 10-13-2021 Thin prep Papanicolaou smear with manual screening 28 U/L 15-37 [facility] Work Phone: Thin prep Papanicolaou smear with manual screening 7 5-15 [facility] Work Phone: CNOVSPon 10-02-2021 CNOVSP Visit (SP) Office (ROGELIO) ----- VIDA NINA ([id number]) 1950 F Date Time Provider Department 10/02/21 1:00 PM JENNIFER CUEVAS During your visit today, we recorded the following information about you: Temperature Pulse Respiration Blood pressure 97.4 degrees 103/minute 20/minute 152/85 Weight Height 136.5 kg 1.651 m Moriah Aldridge RN 10/02/2021 12:52 PM Signed Patient arrived [place] [address] [place] [address] in [facility] for post op visit. Patient admits to pain in abd and lower back resolved since surgery. Pt denies any new concerns, today. Pt here with Marguerite, friend. Enc and support provided. JESUS Lynch MD 12/01/2021 8:04 AM Signed Gynecologic Oncology [facility] Follow up visit Date of service: 10/02/2021 PROBLEM/CC: Vida Nina presents for a post-op visit. SURGICAL PATHOLOGY [[id number]] Collected: 09/07/21 1104 Order Status: Completed Specimen: Tissue from UTERUS, CERVIX, BILATERAL FALLOPIAN TUBES AND BILATERAL OVARIES Updated: 09/11/21 1319 Case Report -- Surgical Pathology Report ? Case: [id number] ? Authorizing Provider: ?Jennifer Cuevas MD ? [...] A11 and A16 were reviewed at the [facility] gynecologic pathology consensus conference via telepathology on 09/09/[address] Lupe Younger and Andra Franco agree with the diagnosis of acute salpingitis. ? Laboratory Developed Test (LDT) Disclaimer: Performance characteristics of immunohistochemical, immunofluorescent and chromogenic in-situ hybridization tests have been determined by the performing laboratory within [facility]?s [facility] ([facility], [facility], [facility] or [facility]) in a manner consistent with CLIA [...] (more content not included)... Normal [facility] Glucose Glucometer (BldC) [M ass/Vol]on 09-22-2021 Glucose [Mass/Vol] 145 mg/dL 74-106 [facility] Work Phone: Comment on above: MANAGEMENT OF PATIEN T CARE PER NURSING PROTOCOL Darren 09-21-2021 CNPN Telephone (ÁNGEL Sprague) ----- VIDA NINA ([id number]) 1950 F Date Time Provider Department 09/21/21 JENNIFER CUEVAS During your visit today, we recorded the following information about you: Jeffrey Ferris 09/21/2021 12:15 PM Signed [facility] [...] ERYTHEMATOSUS [M32.9] 07/15/2005 MYALGIA AND MYOSITIS NOS [FVV4505] 07/15/2005 Elevated transaminase level [R74.01] 09/04/2014 Elevated blood sugar [R73.9] 09/04/2014 Mood disorder (HCC) [F39] 09/04/2014 Hard to intubate [T88.4XXA] 09/07/2021 Encounter for postoperative care [Z48.89] 09/07/2021 Endometrial cancer (HCC) [C54.1] 09/08/2021 Encounter Status:Closed by JEFFREY FERRIS on 09/21/21 Normal [facility] Absolute lymphocyte counton 09-20-2021 Lymphocytes Auto (Unsp spec) [#/Vol] 0.99 10*3/uL 0.83-4.51 [facility] Work Phone: Basophil percentageon 2021 Basophils/100 WBC (Bld) 0.6 % 0-1 [facility] Work Phone: Chloride [Moles/Vol] 109 mmol/L 98-107 [facility] Work Phone: Eosinophils/100 WBC (Bld) 2.6 % 0-5 [facility] Work Phone: Glucose [Mass/Vol] 211 mg/dL 74-106 [facility] Work Phone: Comment on above: Glucose result great er than or equal to 200 mg/dLsuggests DIABETES MELLITUS per A.D.A. criteria. Neutrophils (Bld) [#/Vol] 3.4 10*3/uL 2.0-7.7 [facility] Work Phone: Neutrophils/100 WBC (Bld) 67.6 % 47-70 [facility] Work Phone: Potassium [Moles/Vol] 4.4 mmol/L 3.5-5.[address] [facility] Work Phone: Sodium [Moles/Vol] 138 mmol/L 136-145 [facility] Work Phone: WBC (Bld) [#/Vol] 5.0 10*3/uL 4.4-11.0 [facility] Work Phone: Blood erythrocytes count (nu mber/volume)on 09-20-2021 RBC (Bld) [#/Vol] 4.50 10*6/uL 4.2-5.4 [facility] Work Phone: Blood hemoglobin measurement (mass/volume)on 09-20-2021 Hemoglobin (Bld) [Mass/Vol] 12.8 g/dL 12.0-15.0 [facility] Work Phone: Blood lymphocytes/100 leukoc yteson 09-20-2021 Lymphocytes/100 WBC (Bld) 19.7 % 19-41 [facility] Work Phone: Blood monocytes/100 leukocyt eson 09-20-2021 Monocytes/100 WBC (Bld) 9.1 % 0-10 [facility] Work Phone: Blood platelet mean volumeon 09-20-2021 Platelet mean volume (Bld) [Entitic vol] 9.8 fL 6.2-12.0 [facility] Work Phone: Determination of erythrocyte mean corpuscular volume (MCV)on 09-20-2021 MCV (RBC) [Entitic vol] 87.6 fL 81-99 [facility] Work Phone: Hematocrit Auto (Bld) [Volum e fraction]on 09-20-2021 Hematocrit (Bld) [Volume fraction] 39.4 % 37-47 [facility] Work Phone: Laboratory - Chemistry and C hemistry - challengeon 09-20-2021 CO2 [Moles/Vol] 24.0 mmol/L 21.0-32.0 [facility] Work Phone: Natriuretic peptide B (Bld) [Mass/Vol] 43.0 pg/mL 0-100 [facility] Work Phone: Urea nitrogen/Creatinine [Mass ratio] 14.0 mg/mg 10-20 [facility] Work Phone: Laboratory - Hematology and Cell countson 09-20-2021 Erythrocyte distribution width (RBC) [Entitic vol] 47.4 fL 35.1-43.9 [facility] Work Phone: Erythrocyte distribution width (RBC) [Ratio] 14.7 % 11.6-14.6 [facility] Work Phone: Immature granulocytes/100 WBC (Bld) 0.400 % 0.0-0.9 [facility] Work Phone: Comment on above: IG% - Immature Granu locytes (promyelocytes, myelocytes and metamyelocytes) > 1% indicates that a LEFT SHIFT is Present. MCH (RBC) [Entitic mass] 28.4 pg 27.0-32.0 [facility] Work Phone: Nucleated RBC/100 WBC (Bld) [Ratio] 0 % 0-5 [facility] Work Phone: MCHC Auto (RBC) [Mass/Vol]on 09-20-2021 MCHC (RBC) [Mass/Vol] 32.5 g/dL 32-36 [facility] Work Phone: No Panel Informationon 09-20 Troponin I High Sensitivity < 3 pg/mL 3.0-54.0 [facility] Work Phone: Comment on above: Please Note: New Emma t Units and Gender Specific Reference Ranges. For more information see Policy Stat Procedure [place] High Sensitivity Troponin (TNIH) and attachments. D-Dimer Quantitative (PE/DVT) 2.47 FEU/ug/m 0.27-0.49 [facility] Work Phone: Comment on above: D-Dimer ELEVATED (>0 .49): Additional studies and clinicalassessments are indicated to conclude diagnosis of:Deep Vein Thrombosis (DVT) or Pulmonary Embolism (PE)CRITICAL VALUE VERIFIED. CALLED TO [id number]/17/22 0853 Taniya Burden.RESULTS READ BACK BY SAME . Estimated Creatinine Clearance Calc 56.34 ml/min [facility] Work Phone: Estimated GFR (MDRD) Amer 85 mL/min >60 [facility] Work Phone: Comment on above: GFR Calc Estimated GFR (MDRD) Non-Af Amer 70 mL/min >60 [facility] Work Phone: Comment on above: Non- GFR Calc Platelets bldon 09-20-2021 Platelets (Bld) [#/Vol] 161 10*3/uL 150-450 [facility] Work Phone: Serum or plasma calcium kim urement (mass/volume)on 09-20-2021 Calcium [Mass/Vol] 9.4 mg/dL 8.5-10.1 [facility] Work Phone: Serum or plasma creatinine m easurement (mass/volume)on 09-20-2021 Creatinine [Mass/Vol] 0.86 mg/dL 0.55-1.02 [facility] Work Phone: Comment on above: The validity of the calculated GFR & GFRAA in patients over 70 years has not been determined. Clinical correlation is essential. Serum or plasma urea nitroge n measurement (mass/volume)on 09-20-2021 Urea nitrogen [Mass/Vol] 12 mg/dL 7-18 [facility] Work Phone: Thin prep Papanicolaou smear with manual screeningon 09-20-2021 Thin prep Papanicolaou smear with manual screening 5-15 [facility] Work Phone: OPERATIVE NOon 09-17-2021 OPERATIVE NO HNO ID: [id number] Author: Jennifer Cuevas MD Service: Gynecology Oncology Author Type: Physician Type: Operative Report Filed: 09/23/2021 10:50 AM Note Text: [facility] - Operative Report VIDA NINA : 1950 AGE: 70. SEX: F PATIENT TYPE: I HOSP [facility]: OBN LOCATION: [facility] [place][note 2] ATTENDING PHYSICIAN: Jennifer Cuevas M.D. CSN NUMBER: [id number] DATE OF SURGERY/PROCEDURE: 09/07/2021 INCISION/PROCEDURE START TIME: 09:14 a.m. INCISION CLOSE/PROCEDURE END TIME: 12:36 p.m. 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 SURGEON: Jennifer Cuevas M.D. BAG MACHINE ADJUSTER: psychological assistant, Dr. Donal Naidu and Dr. Shanon [...] (more content not included)... Normal [facility] Bilirubin Test strip Ql (U)o n 09-10-2021 Bilirubin Ql (U) Negative Negative [facility] Work Phone: Darren 09-10-2021 SHORTY Telephone (JOSE MANUELYNONPO B) ----- VIDA NINA ([id number]) 1950 F Date Time Provider Department 09/10/21 TANIYA BALDERAS During your visit today, we recorded the following information about you: Taniya Balderas APRN.MICHELLE 09/10/2021 8:32 AM Signed Called [facility] left message on nurse line [...] to. meds that are susceptible are iv. [facility] can recheck urine if still + then would need to get ID involved verbal instructions per Dr julieth Balderas APRN.[facility] Allergies As of Date: 09/10/2021 Noted Allergy [...] ERYTHEMATOSUS [M32.9] 07/15/2005 MYALGIA AND MYOSITIS NOS [[id number]] 07/15/2005 Elevated transaminase level [R74.01] 09/04/2014 Elevated blood sugar [R73.9] 09/04/2014 Mood disorder (HCC) [F39] 09/04/2014 Hard to intubate [T88.4XXA] 09/07/2021 Encounter for postoperative care [Z48.89] 09/07/2021 Endometrial cancer (HCC) [C54.1] 09/08/2021 Encounter Status:Closed by TANIYA BALDERAS on 09/10/21 Normal [facility] Culture, urineon 09-10-2021 Bacteria identified Cx Nom (U) Negative [facility] Work Phone: Ketones Test strip Ql (U)on 09-10-2021 Ketones Ql (U) Negative Negative [facility] Work Phone: Nitrite Test strip Ql (U)on 09-10-2021 Nitrite Ql (U) Negative Negative [facility] Work Phone: Protein Test strip Ql (U)on 09-10-2021 Protein Ql (U) Negative Negative [facility] Work Phone: Urine blood detectionon 04-0 RBC Ql (U) 25 /ul Negative [facility] Work Phone: Urine clarityon 09-10-2021 Clarity (U) Clear Clear [facility] Work Phone: Urine color determinationon 09-10-2021 Color (U) Yellow Yellow [facility] Work Phone: Urine glucose detectionon Glucose Ql (U) Normal mg/dl Normal [facility] Work Phone: Urine leukocyte esterase det ection by dipstickon 09-10-2021 Leukocyte esterase Test strip Ql (U) 25 /ul Negative [facility] Work Phone: Urine pHon 09-10-2021 pH (U) 7.0 [pH] 5.0 - 8.0 [facility] Work Phone: Urine specific gravity measu rementon 09-10-2021 Specific gravity (U) [Rel density] 1.005 1.002-1.03 0 [facility] Work Phone: Urobilinogen Auto test strip Ql (U)on 09-10-2021 Urobilinogen Ql (U) Normal mg/dl Normal [facility] Work Phone: ANES POSTPROC EVALon 022 ANES POSTPROC EVAL HNO ID: [id number] Author: Darrion Payne MD Service: Anesthesiology Author Type: Physician Type: Anesthesia Postprocedure Evaluation Filed: 09/09/2021 12:30 PM Note Text: POST ANESTHESIA EVALUATION NOTE : 1950 Procedure Summary Date: 09/07/21 Room / Location: [place] OR [address] [place] [address] OR Anesthesia Start: 812 Anesthesia Stop: 1242 [...] September 09, 2021 TIME: 12:30 PM CSN: [id number] [facility] CNPElva 09-09-2021 MICHELLEN Telephone (ÁNGEL Sprague) ----- VIDA NINA ([id number]) 1950 F Date Time Provider Department 09/09/21 JENNIFER CUEVAS During your visit today, we recorded the following information about you: Summer Turcios RN 09/09/2021 2:15 PM Signed Franklin, nursing center tutor at [facility] called stated, "one of patient's lap [...] RN 09/09/2021 2:53 PM Signed Franklin from [facility] returned call to this RN. Reviewed message from Sebas Cuevas MD. Instructed Franklin to monitor patient's lap site and call office if worsens or if any other complications arise. Franklin verbalized understanding. Summer Allshouse, RN Allergies As of Date: 09/09/2021 Noted [...] ERYTHEMATOSUS [M32.9] 07/15/2005 MYALGIA AND MYOSITIS NOS [[id number]] 07/15/2005 Elevated transaminase level [R74.01] 09/04/2014 Elevated blood sugar [R73.9] 09/04/2014 Mood disorder (HCC) [F39] 09/04/2014 Hard to intubate [T88.4XXA] 09/07/2021 Encounter for postoperative care [Z48.89] 09/07/2021 Endometrial cancer (HCC) [C54.1] 09/08/2021 Encounter Status:Closed by SUMMER TURCIOS on 09/09/21 [facility] CASE MANAGEMon 09-08-2021 CASE MANAGEM HNO ID: [id number] Author: Rosmery Mclaughlin RN Service: ? 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 RN to call report. TRANSPORTATION ARRANGEMENTS: Transportation Arrangements: ([facility]) ADDITIONAL CONTACT RESOURCES: n/a DC orders completed. Patient is discharging back to [facility] [place]. The facility has arranged for [facility] transport to pick her up at 1pm. RN is aware. Met with patient at bedside to notify of DC and transport time. SIGNATURE: Rosmery Mclaughlin RN PATIENT NAME: Vida Nina DATE: September 08, 2021 TIME: 12:28 PM PAGER/CONTACT #: [phone] [facility] HNO ID: [id number] Author: Rosmery Mclaughlin RN Service: ? Author Type: Registered Nurse Type: Care Mgt Initial Assessment Filed: 09/08/2021 10:24 AM Note Text: CARE MANAGEMENT: ASSESSMENT AND DISCHARGE PLAN SERVICE DATE: September 08, 2021 SERVICE TIME: 10:22 AM PRIMARY CARE PHYSICIAN: No primary care provider on file. Phone: None ADMISSION STATUS: Inpatient Needs Prior to Discharge: Discharge Transportation MEDICAL: [facility] MEDICARE Patient/Command Center Analyst Stated Goals: To return home to life as it was;To have reduction in pain Health Insurance: [facility];Medicare;Medicaid Health Issues Impacting Discharge Plan: Newly [...] None Has the Patient Been in a Long Term Facility in the Past 30 days?: No SOCIAL: Living Arrangements: Assisted Living Lives With: N/A Patient from Facility Facility Information: [facility] Financial Resources: Disabled Primary Contact: Extended Emergency Contact Information Primary Emergency Contact: kelleankita chu Mobile Relation: Ex Spouse Secondary Emergency Contact: [...] plan for meeting these needs: return to [place] Patient's perception of need for this admission: surgery Are you interested in bedside delivery of your medications? No Is Patient Psychosocially Complex?: No ASSESSMENT AND PLAN: Medical Needs: Medical Needs: Two or more chronic diseases Psychosocial Needs: Psychosocial Needs: None FREEDOM OF CHOICE EXPLAINED: [place] of Choice Given: No Reason Not Given: Patient refused (patient prefers to return to [facility]) POTENTIAL TRANSITION PLANS Home Chart reviewed and met with patient. She is from [facility]. 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 Plan is to return to [place]. Spoke with Zari at [facility]. They [facility] to steel pickler patient at 1pm. Will updated patient and RN. SIGNATURE: Rosmery Mclaughlin RN PATIENT NAME: Vida Nina DATE: September 08, 2021 TIME: 10:22 AM PAGER/CONTACT #: [phone] [facility] 09-08-2021 [facility] HNO ID: [id number] Author: Sam Naidu DO Service: Gynecology Oncology [...] Time Provider Department Center 09/22/2021 2:30 PM [id number] CUEVAS PO DISCHARGE MEDICATIONS Current Discharge Medication [...] September 08, 2021 TIME: 7:27 AM PAGER: [phone] Normal [facility] ANES PRE-OPon 09-07-2021 ANES PRE-OP HNO ID: [id number] Author: Darrion Payne MD Service: Anesthesiology Author [...] and consent discussed: yes. Patient / Responsible Constitution Party agrees to proceed: yes Patient / [...] September 07, 2021 TIME: 8:57 AM CSN: [id number] [facility] BRIEF OP NOTon 09-07-2021 BRIEF OP NOT HNO ID: [id number] Author: aSm Naidu DO Service: Gynecology Oncology Author Type: Resident Type: Brief Op Note Filed: 09/07/2021 1:06 PM Note Text: BRIEF OPERATIVE / PROCEDURE NOTE LOG ID: [id number] SURGERY/PROCEDURE DATE: 09/07/2021 INCISION/PROCEDURE START TIME: 9:14 AM INCISION CLOSE/PROCEDURE END TIME: 12:36 PM SURGEON(S)/PROCEDURALIST( S) AND BAG MACHINE ADJUSTER(S): Surgeon(s) and Role: * Jennifer Cuevas MD [...] 2021 TIME: 1:01 PM Normal [facility] Bacteria Ur Culton 2 Bacteria identified [...] sulfameth R >2 F Abnormal [facility] Comment on above: Performed By: #### 6 30-4 ####[facility] [id number] [address] STATES OF [facility] Basic metabolic 2000 panelon 09-07-2021 Anion gap [Moles/Vol] 13 mmol/L Normal 9-18 [facility] Comment on above: Order Comment: Bobbi alford Type: BLOOD SPECIMEN Ordering Facility: [facility] Address: [address] [place] [address] Performed By: #### 2 4321-2 #### [facility] CLIA [id number] [address] STATES OF [facility] Calcium [Mass/Vol] 9.2 mg/dL Normal 8.5-10.2 [facility] Comment on above: Order Comment: Bobbi alford Type: BLOOD SPECIMEN Ordering Facility: [facility] Address: [address] [address] Performed By: #### 2 4321-2 #### [facility] CLIA [id number] [address] STATES OF [place] Chloride [Moles/Vol] 97 mmol/L Normal 97-105 [facility] Comment on above: Order Comment: Speci men Type: BLOOD SPECIMEN Ordering Facility: [facility] Address: [address] [place] [address] Performed By: #### 2 4321-2 #### [facility] CLIA [id number] [address] STATES [place] CO2 [Moles/Vol] 22 mmol/L Normal 22-30 [facility] Comment on above: Order Comment: Speci men Type: BLOOD SPECIMEN Ordering Facility: [facility] Address: [address] [place] [address] Performed By: #### 2 4321-2 #### [facility] CLIA [id number] [address] OF [facility] Creatinine [Mass/Vol] 0.70 mg/dL Normal 0.58-0.96 [facility] Comment on above: Order Comment: Speci men Type: BLOOD SPECIMEN Ordering Facility: [facility] Address: [address] [place] [address] Performed By: #### 2 4321-2 #### [facility] CLIA [id number] [address] OF [place] ESTIMATED GLOMERULAR FILTRATION RATE 94 mL/min/1.73m??? Normal >=60 [facility] Comment on above: Order Comment: Speci men Type: BLOOD SPECIMEN Ordering Facility: [facility] Address: [address] [place] [address] Result Comment: Laura mated Glomerular Filtration Rate [...] 2 4321-2 #### [facility] CLIA [id number] 1 [place] [address] [place] Glucose [Mass/Vol] 303 mg/dL High 74-99 [facility] Comment on above: Order Comment: Bobbi alford Type: BLOOD SPECIMEN Ordering Facility: [facility] Address: [address] [place] [address] Result Comment: The [place] Diabetes Association (ADA) provides guidance for cutoff [...] Standards of Medical Care in Diabetes 2016, [place] Diabetes Association. Diabetes Care. 2016.39(Suppl 1). Performed By: #### 2 4321-2 #### [facility] CLIA [id number] 1 [place] [address] [place] Potassium [Moles/Vol] 4.9 mmol/L Normal 3.7-5.1 [facility] Comment on above: Order Comment: Bobbi alford Type: BLOOD SPECIMEN Ordering Facility: [facility] Address: [address] [place] [address] Performed By: #### 2 4321-2 #### [facility] CLIA [id number] 1 [place] [address] [place] Sodium [Moles/Vol] 132 mmol/L Low 136-144 [facility] Comment on above: Order Comment: Bobbi alford Type: BLOOD SPECIMEN Ordering Facility: [facility] Address: [address] [place] [address] Performed By: #### 2 4321-2 #### [facility] CLIA [id number] [address] STATES OF [facility] Urea nitrogen [Mass/Vol] 13 mg/dL Normal 7-21 [facility] Comment on above: Order Comment: Speci men Type: BLOOD SPECIMEN Ordering Facility: [facility] Address: [address] [place] [address] Performed By: #### 2 4321-2 #### [facility] CLIA [id number] [address] [place] CBC panel Auto (Bld)on 09-07 Erythrocyte distribution width (RBC) [Ratio] 14.2 % Normal 11.5-15.0 [facility] Comment on above: Order Comment: Speci men Type: BLOOD SPECIMEN Ordering Facility: [facility] Address: [address] [place] [address] Performed By: #### 5 8410-2 #### [facility] CLIA [id number] [address] Hematocrit (Bld) [Volume fraction] 44.0 % Normal 36.0-46.0 [facility] Comment on above: Order Comment: Speci men Type: BLOOD SPECIMEN Ordering Facility: [facility] Address: [address] [place] [address] Performed By: #### 5 8410-2 #### [facility] CLIA [id number] [address] STATES [place] Hemoglobin (Bld) [Mass/Vol] 14.2 g/dL Normal 11.5-15.5 [facility] Comment on above: Order Comment: Speci men Type: BLOOD SPECIMEN Ordering Facility: [facility] Address: [address] [place] [address] Performed By: #### 5 8410-2 #### [facility] CLIA [id number] [address] MCH (RBC) [Entitic mass] 28.9 pg Normal 26.0-34.0 [facility] Comment on above: Order Comment: Speci men Type: BLOOD SPECIMEN Ordering Facility: [facility] Address: [address] [address] Performed By: #### 5 8410-2 #### [facility] CLIA [id number] [address] MCHC (RBC) [Mass/Vol] 32.3 g/dL Normal 30.5-36.0 [facility] Comment on above: Order Comment: Speci men Type: BLOOD SPECIMEN Ordering Facility: [facility] Address: [address] [place] [address] Performed By: #### 5 8410-2 #### [facility] CLIA [id number] [address] MCV (RBC) [Entitic vol] 89.6 fL Normal 80.0-100.0 [facility] Comment on above: Order Comment: Speci men Type: BLOOD SPECIMEN Ordering Facility: [facility] Address: [address] [place] [address] Performed By: #### 5 8410-2 #### [facility] CLIA [id number] [address] Nucleated RBC (Bld) [#/Vol] 10*3/uL Normal <0.01 [facility] Comment on above: Order Comment: Speci men Type: BLOOD SPECIMEN Ordering Facility: [facility] Address: [address] [place] [address] Performed By: #### 5 8410-2 #### [facility] CLIA [id number] [address] Platelet mean volume (Bld) [Entitic vol] 10.8 fL Normal 9.0-12.7 [facility] Comment on above: Order Comment: Speci men Type: BLOOD SPECIMEN Ordering Facility: [facility] Address: [address] [place] [address] Performed By: #### 5 8410-2 #### [facility] CLIA [id number] [address] [place] [address] [place] Platelets (Bld) [#/Vol] 153 10*3/uL Normal 150-400 [facility] Comment on above: Order Comment: Bobbi alford Type: BLOOD SPECIMEN Ordering Facility: [facility] Address: [address] [place] [address] Performed By: #### 5 8410-2 #### [facility] CLIA [id number] [address] [place] RBC (Bld) [#/Vol] 4.91 10*6/uL Normal 3.90-5.20 [facility] Comment on above: Order Comment: Bobbi alford Type: BLOOD SPECIMEN Ordering Facility: [facility] Address: [address] [place] [address] Performed By: #### 5 8410-2 #### [facility] CLIA [id number] [address] WBC (Bld) [#/Vol] 8.23 10*3/uL Normal 3.70-11.00 [facility] Comment on above: Order Comment: Bobbi alford Type: BLOOD SPECIMEN Ordering Facility: [facility] Address: [address] [place] [address] Performed By: #### 5 8410-2 #### [facility] CLIA [id number] [address] OF [facility] CONSULT PROGon 09-07-2021 CONSULT PROG HNO ID: [id number] Author: Niki Crabtree RPh Service: Pharmacy Author [...] Niki Crabtree RPh DATE/TIME: 09/07/2021 4:32 PM [facility] NURSING PROGon 09-07-2021 NURSING PROG HNO ID: [id number] Author: Lydia Oliver RN Service: Nursing Author Type: Registered Nurse Type: Nursing Progress Note Filed: 09/07/2021 3:19 PM Note Text: Spoke with Bernadine at [facility] to let her know patient was spending the night, as she said there is no nursing staff after 2300 Normal [facility] NURSING PROG HNO ID: [id number] Author: Lydia Oliver RN Service: Nursing Author [...] meds on the floor. Normal [facility] SARS-CoV-2 RNA Resp Ql SALLY+p robeon 09-07-2021 SARS-CoV-2 (COVID-19) RNA SALLY+probe Ql (Resp) COVID 19 RESULT: SARS-CoV-2 (Agent of COVID-19) Not Detected by RT-PCR or equivalent method. This test has been authorized by FDA under an Emergency Use Authorization (EUA). [facility] Comment on above: Performed By: #### 9 4500-6 ####[facility]ORY[facility]IA [id number] [address] STATES OF [facility] SURGICAL PATHOLOGYon 022 CASE REPORT Normal [facility] Comment on above: Order Comment: Speci men Type: TISSUE SPECIMEN Ordering Facility: [facility] Address: [address] [place] [address] Result Comment: Surg ica Pathology Report Case: [id number] Authorizing Provider: Jennifer Cuevas MD Collected: 09/07/2021 11:04 AM Ordering Location: [facility] Received: 09/07/2021 11:12 AM Pathologist: Oseas May MD Intraop: Derick Alvarez MD Specimen: UTERUS, CERVIX, BILATERAL FALLOPIAN TUBES AND BILATERAL OVARIES Performed By: #### S #### [facility] CLIA [id number] [address] DIAGNOSIS COMMENT Normal [facility] Comment on above: Order Comment: Speci men Type: TISSUE SPECIMEN Ordering Facility: [facility] Address: [address] [place] [address] Result Comment: Immu nohistochemical staining performed on [...] A11 and A16 were reviewed at the [facility] gynecologic pathology consensus conference via telepathology on 09/09/20[address] Lupe Younger and Andra Franco agree with the diagnosis of acute salpingitis. Laboratory Developed Test (LDT) Disclaimer: Performance characteristics of immunohistochemical, immunofluorescent and chromogenic in-situ hybridization tests have been determined by the performing laboratory within [facility]???s Saul Andersen [facility] Pathology and Laboratory Medicine [place] ([facility], [facility], [facility] or [facility]) in a manner consistent with CLIA requirements. One or more of these tests have not been cleared or approved by the FDA. [facility] is regulated under CLIA as qualified to perform high-complexity testing. These tests are used for clinical purposes. They should not be regarded as investigational or for research. Positive and negative controls stain appropriately. Performed By: #### S #### [facility] CLIA [id number] [address] FINAL DIAGNOSIS Normal [facility] Comment on above: Order Comment: Speci men Type: TISSUE SPECIMEN Ordering Facility: [facility] Address: [address] [place] [address] Result Comment: A. U terus, cervix, bilateral [...] -Unremarkable ovaries. Performed By: #### S #### [facility] CLIA [id number] [address] [place] [address] FINAL PERFORMING LAB Normal [facility] Comment on above: Order Comment: Speci men Type: TISSUE SPECIMEN Ordering Facility: [facility] Address: [address] [place] [address] Result Comment: Diag nostic interpretation performed at [facility], [address] [place] [address] CLIA# [id number] Rn Camp: Alok Jonas M.D. Performed By: #### S #### [facility] CLIA [id number] [address] [place] [address] GROSS DESCRIPTION Normal [facility] Comment on above: Order Comment: Speci men Type: TISSUE SPECIMEN Ordering Facility: [facility] Address: [address] [address] Result Comment: A. U TERUS, CERVIX, BILATERAL [...] fibrous ovarian parenchyma with no lesions identified. Command Center Analyst sections are submitted as follows: A1-anterior cervix [...] A 17-right ovary Gross examination performed at [facility], [address] [place] [address] CLIA#[id number] OLS September 08, 2021 10:33 AM Performed By: #### S #### [facility] CLIA [id number] [address] STATES [place] INTRAOPERATIVE DIAGNOSIS Normal [facility] Comment on above: Order Comment: Speci men Type: TISSUE SPECIMEN Ordering Facility: [facility] Address: [address] [place] [address] Result Comment: A. U TERUS, CERVIX, BILATERAL FALLOPIAN TUBES AND BILATERAL OVARIES. Gross diagnosis: Uterus, cervix, bilateral fallopian tubes, bilateral ovaries- Endometrial tumor grossly invading greater than 50% into the uterine wall (AC) Performed By: #### S #### [facility] CLIA [id number] [address] STATES [place] SYNOPTIC REPORT ENDOMETRIUM Normal [facility] Comment on above: Order Comment: Speci men Type: TISSUE SPECIMEN Ordering Facility: [facility] Address: [address] [place] [address] Result Comment: ENDO METRIUM, HYSTERECTOMY - All [...] Stage: IB Performed By: #### S #### [facility] CLIA [id number] [address] OF [facility] CBC panel Auto (Bld)on 09-01 Erythrocyte distribution width (RBC) [Ratio] 14.5 % Normal 11.5-15.0 [facility] Comment on above: Order Comment: Bobbi alford Type: BLOOD SPECIMEN Ordering Facility: [facility] Address: [address] [address] Performed By: #### 5 8410-2 #### [facility] CLIA [id number] [address] STATES OF [facility] Hematocrit (Bld) [Volume fraction] 41.0 % Normal 36.0-46.0 [facility] Comment on above: Order Comment: Laur[place] men Type: BLOOD SPECIMEN Ordering Facility: [facility] Address: [address] [address] Performed By: #### 5 8410-2 #### [facility] CLIA [id number] [address] [place] Hemoglobin (Bld) [Mass/Vol] 13.3 g/dL Normal 11.5-15.5 [facility] Comment on above: Order Comment: Laurai men Type: BLOOD SPECIMEN Ordering Facility: [facility] Address: [address] [address] Performed By: #### 5 8410-2 #### [facility] CLIA [id number] [address] MCH (RBC) [Entitic mass] 28.8 pg Normal 26.0-34.0 [facility] Comment on above: Order Comment: Speci men Type: BLOOD SPECIMEN Ordering Facility: [facility] Address: [address] [place] [address] Performed By: #### 5 8410-2 #### [facility] CLIA [id number] [address] MCHC (RBC) [Mass/Vol] 32.4 g/dL Normal 30.5-36.0 [facility] Comment on above: Order Comment: Speci men Type: BLOOD SPECIMEN Ordering Facility: [facility] Address: [address] [place] [address] Performed By: #### 5 8410-2 #### [facility] CLIA [id number] [address] MCV (RBC) [Entitic vol] 88.7 fL Normal 80.0-100.0 [facility] Comment on above: Order Comment: Speci men Type: BLOOD SPECIMEN Ordering Facility: [facility] Address: [address] [place] [address] Performed By: #### 5 8410-2 #### [facility] CLIA [id number] [address] Nucleated RBC (Bld) [#/Vol] 10*3/uL Normal <0.01 [facility] Comment on above: Order Comment: Speci men Type: BLOOD SPECIMEN Ordering Facility: [facility] Address: [address] [place] [address] Performed By: #### 5 8410-2 #### [facility] CLIA [id number] [address] OF [facility] Platelet mean volume (Bld) [Entitic vol] 10.5 fL Normal 9.0-12.7 [facility] Comment on above: Order Comment: Speci men Type: BLOOD SPECIMEN Ordering Facility: [facility] Address: [address] [address] Performed By: #### 5 8410-2 #### [facility] CLIA [id number] [address] Platelets (Bld) [#/Vol] 167 10*3/uL Normal 150-400 [facility] Comment on above: Order Comment: Speci men Type: BLOOD SPECIMEN Ordering Facility: [facility] Address: [address] [place] [address] Performed By: #### 5 8410-2 #### [facility] CLIA [id number] [address] RBC (Bld) [#/Vol] 4.62 10*6/uL Normal 3.90-5.20 [facility] Comment on above: Order Comment: Speci men Type: BLOOD SPECIMEN Ordering Facility: [facility] Address: [address] [place] [address] Performed By: #### 5 8410-2 #### [facility] CLIA [id number] [address] WBC (Bld) [#/Vol] 6.29 10*3/uL Normal 3.70-11.00 [facility] Comment on above: Order Comment: Speci men Type: BLOOD SPECIMEN Ordering Facility: [facility] Address: [address] [place] [address] Performed By: #### 5 8410-2 #### [facility] CLIA [id number] [address] CONFIRM BLOOD TYPEon 022 ABO O Normal [facility] Comment on above: Order Comment: Speci men Type: BLOOD SPECIMEN Ordering Facility: [facility] Address: [address] [place] [address] Performed By: #### C ONABO #### [facility] CLIA [id number] [address] Rh Nom (Bld) Positive Normal [facility] Comment on above: Order Comment: Speci men Type: BLOOD SPECIMEN Ordering Facility: [facility] Address: [address] [place] [address] Performed By: #### C ONABO #### [facility] CLIA [id number] [address] [id number] [facility] HISTORY PHYSICALon 2 HISTORY PHYSICAL HNO ID: [id number] Author: Naila Barrientos APRN.MICHELLE Service: ? Author [...] with Dr. Cuevas. Surgery will be at [facility] Scheduled as an TBA Have you been in contact with someone with known coronavirus/Covid 19? no Have you had surgery or pre testing at [facility] in the past 3 years? no [...] Negative for: AICD/PPM, chest pain, CHF, recent [place] and open heart surgery. GI: Positive for: abdominal pain Negative for: nausea and vomiting. : No history of dysuria, frequency or incontinence, stones or chronic kidney disease. No difficulty urinating, nocturia > 1 time per night or hematuria. 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 [...] (more content not included)... Normal [facility] TYPE AND SCREEN,30 DAYon ABO O Normal [facility] Comment on above: Order Comment: Speci men Type: BLOOD SPECIMEN Ordering Facility: [facility] Address: [address] [place] [address] Performed By: #### T SCR30 #### [facility] CLIA [id number] [address] HISTORICAL AB SCR STATUS Negative [facility] Comment on above: Order Comment: Speci men Type: BLOOD SPECIMEN Ordering Facility: [facility] Address: [address] [place] [address] Performed By: #### T SCR30 #### [facility] CLIA [id number] [address] [place] [address] Rh Nom (Bld) Positive [facility] Comment on above: Order Comment: Speci men Type: BLOOD SPECIMEN Ordering Facility: [facility] Address: [address] [place] [address] Performed By: #### T SCR30 #### [facility] CLIA [id number] [address] [place] CNOVSPon 08-21-2021 CNOVSP Visit (SP) Office (ROGELIO) ----- VIDA NINA ([id number]) 1950 F Date Time Provider Department 08/21/21 1:30 PM JENNIFER CUEVAS During your visit today, we recorded the following information about you: Temperature Pulse Blood pressure Weight 97.8 degrees 113/minute 144/72 130 kg Height 1.651 m Jennifer Cuevas MD 08/26/2021 1:21 PM Signed Gynecologic Oncology [facility] Consult Date of service: 08/21/2021 PCP: Dr. 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 Age at Menarche: ? Age at First : ? Age at Menopause: ? 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 Sexual Activity: Not Asked; [...] (more content not included)... Normal [facility] Darren 08-07-2021 MICHELLE Telephone (ÁNGEL Sprague) ----- VIDA NINA ([id number]) 1950 F Date Time Provider Department 08/07/21 JENNIFER CUEVAS During your visit today, we recorded the following information about you: Jeffrey Ferris 08/07/2021 1:26 PM Signed Called gilberto the nurse at [facility] where the patient is living [...] ERYTHEMATOSUS [M32.9] 07/15/2005 MYALGIA AND MYOSITIS NOS [[id number]] 07/15/2005 Elevated transaminase level [R74.01] 09/04/2014 Elevated blood sugar [R73.9] 09/04/2014 Mood disorder (HCC) [F39] 09/04/2014 Encounter Status:Closed by JEFFREY FERRIS on 08/07/21 Normal [facility] CNPNon 08-05-2021 CNPN Telephone (OBGYWM) ----- VIDA NINA ([id number]) 1950 F Date Time Provider Department 08/05/21 KRUNAL ERAZO During your visit today, we recorded the following information about you: Krunal Erazo MD 08/05/2021 8:30 AM Signed Called listed numbers under home phone, and the numbers are not working. Called number listed for patient's egg caser regarding results, but it was stated that patient does not have a egg caser currently. I was given the number [phone] to call, which is [facility] where patient resides. Called this number and left a VM asking them to call back regarding patient results. I had offered the patient a follow up visit this week to review results, but she did prefer a phone call. Pathology shows endometrioid adenocarcinoma. I will place a referral to autotransfusionist oncology. Recommend that she see Dr. Jennifer Cuevas in [place] as that would be the closest for her. Krunal Erazo MD 08/05/2021 10:06 AM Signed Discussed results with a nurse Gilbetro over the phone and plan of care. She states patient saw an oncologist as well at [facility] and is scheduled for a CTAP. She will have the patient call our office back today for me to discuss results with her as well. Krunal Erazo MD 08/05/2021 10:19 AM Signed Discussed results with the patient and she understands the biopsy shows an endometrial cancer, and that I placed a referral to autotransfusionist oncology for a consultation. Please assist in scheduling this patient. Andra Jesus RN 08/05/2021 11:33 AM Signed Scheduled patient with Dr. Cuevas this Tuesday, 08/07 at 1:00 PM. Spoke with the nurse, Gilberto. Patient's CT scan is scheduled for Tuesday. Phone number given to change appointment since transportation needs arranged. Notified Gilberto that he is in [place] on Tuesdays and every other Tuesday. 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] Order(s):CONSULT TO GYNECOLOGIC/ONCOLOGY [[id number]] Order #: [id number]: 1 FUTURE Prescriptions as of 08/05/2021 - [...] ERYTHEMATOSUS [M32.9] 07/15/2005 MYALGIA AND MYOSITIS NOS [[id number]] 07/15/2005 Elevated transaminase level [R74.01] 09/04/2014 Elevated blood sugar [R73.9] 09/04/2014 Mood disorder (HCC) [F39] 09/04/2014 Encounter Status:Closed by PAMELA MATUTE RN on 08/05/21 [facility] No Panel Informationon 07-30 CA 125 Antigen 85.5 U/mL 0.0-38.1 [facility] Work Phone: Comment on above: [facility] [place] ectrochemiluminescence Immunoassay(ECLIA)Values obtained with different assay methods or kits cannotbe used interchangeably. 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 Normal [facility] SURGICAL PATHOLOGYon 022 SURGICAL PATHOLOGY ADDENDUM PRESENT Specimen originated from [facility] Specimen #: [id number] Submitting Physician: KRUNAL ERAZO, DO FINAL DIAGNOSIS [...] in-situ hybridization tests have been determined by [facility]'s [facility] [place] [facility]) in a manner consistent with CLIA requirements. One or more of these tests have not been cleared or approved by the FDA. [facility] is regulated under CLIA as qualified [...] completed on all uterine/endometrial carcinomas at the [facility]. IHC stains for MMR proteins were [...] more information or questions, please call the [facility] at . Andra Webb (more content not included)... Normal [facility] CNPNon 07-27-2021 CNPN Telephone (OBGYWM) ----- VIDA NINA ([id number]) 1950 F CPA Date Time Provider Department 07/27/21 KRUNAL ERAZO OBTRUDY During your visit today, we recorded the following information about you: Andra Jesus RN 07/27/2021 8:14 AM Signed KJ states that patient was seen at [facility] ER yesterday for vaginal bleeding and possible pelvic mass. Called [facility] ER and requested records and imaging [...] is minimally ambulatory and coming from [facility]. Since she is a new patient who is minimally ambulatory, and likely needs an EMB and cervical biopsies, would prefer to have 60 min appointment to get everything completed in one day as well as student success counselor her. Can offer her the 2.20 [...] ERYTHEMATOSUS [M32.9] 07/15/2005 MYALGIA AND MYOSITIS NOS [[id number]] 07/15/2005 Elevated transaminase level [R74.01] 09/04/2014 Elevated blood sugar [R73.9] 09/04/2014 Mood disorder (HCC) [F39] 09/04/2014 Encounter Status:Closed by ELISABETH GREEN LPN on 07/27/21 Normal [facility] Absolute lymphocyte counton 07-26-2021 Lymphocytes Auto (Unsp spec) [#/Vol] 1.24 10*3/uL 0.83-4.51 [facility] Work Phone: Basophil percentageon 2021 Basophils/100 WBC (Bld) 0.6 % 0-1 [facility] Work Phone: Chloride [Moles/Vol] 105 mmol/L 98-107 [facility] Work Phone: Eosinophils/100 WBC (Bld) 3.9 % 0-5 [facility] Work Phone: Glucose [Mass/Vol] 185 mg/dL 74-106 [facility] Work Phone: Comment on above: Fasting Glucose resu lt greater than or equal to 126 mg/dL suggests DIABETES MELLITUS per A.D.A. criteria. Neutrophils (Bld) [#/Vol] 3.2 10*3/uL 2.0-7.7 [facility] Work Phone: Neutrophils/100 WBC (Bld) 62.1 % 47-70 [facility] Work Phone: Potassium [Moles/Vol] 4.4 mmol/L 3.5-5.1 [facility] Work Phone: Sodium [Moles/Vol] 135 mmol/L 136-145 [facility] Work Phone: WBC (Bld) [#/Vol] 5.1 10*3/uL 4.4-11.0 [facility] Work Phone: Blood erythrocytes count (nu mber/volume)on 07-26-2021 RBC (Bld) [#/Vol] 4.66 10*6/uL 4.2-5.4 [facility]: Blood hemoglobin measurement (mass/volume)on 07-26-2021 Hemoglobin (Bld) [Mass/Vol] 13.8 g/dL 12.0-15.0 [facility] Work Phone: Blood lymphocytes/100 leukoc yteson 07-26-2021 Lymphocytes/100 WBC (Bld) 24.5 % 19-41 [facility] Work Phone: Blood monocytes/100 leukocyt eson 07-26-2021 Monocytes/100 WBC (Bld) 8.5 % 0-10 [facility] Work Phone: Blood platelet mean volumeon 07-26-2021 Platelet mean volume (Bld) [Entitic vol] 10.1 fL 6.2-12.0 [facility] Work Phone: Determination of erythrocyte mean corpuscular volume (MCV)on 07-26-2021 MCV (RBC) [Entitic vol] 88.2 fL 81-99 [facility] Work Phone: Hematocrit Auto (Bld) [Volum e fraction]on 07-26-2021 Hematocrit (Bld) [Volume fraction] 41.1 % 37-47 [facility] Work Phone: Laboratory - Chemistry and C hemistry - challengeon 07-26-2021 CO2 [Moles/Vol] 24.0 mmol/L 21.0-32.0 [facility] Work Phone: Urea nitrogen/Creatinine [Mass ratio] 17.3 mg/mg 10-20 [facility] Work Phone: Laboratory - Hematology and Cell countson 07-26-2021 Erythrocyte distribution width (RBC) [Entitic vol] 46.8 fL 35.1-43.9 [facility] Work Phone: Erythrocyte distribution width (RBC) [Ratio] 14.6 % 11.6-14.6 [facility] Work Phone: Immature granulocytes/100 WBC (Bld) 0.400 % 0.0-0.9 [facility] Work Phone: Comment on above: IG% - Immature Granu locytes (promyelocytes, myelocytes and metamyelocytes) > 1% indicates that a LEFT SHIFT is Present. MCH (RBC) [Entitic mass] 29.6 pg 27.0-32.0 [facility] Work Phone: Nucleated RBC/100 WBC (Bld) [Ratio] 0 % 0-5 [facility] Work Phone: MCHC Auto (RBC) [Mass/Vol]on 07-26-2021 MCHC (RBC) [Mass/Vol] 33.6 g/dL 32-[address] [facility] Work Phone: No Panel Informationon 07-26 Estimated Creatinine Clearance Calc 55.69 ml/min [facility] Work Phone: Estimated GFR (MDRD) Amer 84 mL/min >60 [facility] Work Phone: Comment on above: GFR Calc Estimated GFR (MDRD) Non-Af Amer 69 mL/min >60 [facility] Work Phone: Comment on above: Non- GFR Calc Platelets bldon 07-26-2021 Platelets (Bld) [#/Vol] 151 10*3/uL 150-450 [facility] Work Phone: Serum or plasma calcium kim urement (mass/volume)on 07-26-2021 Calcium [Mass/Vol] 9.2 mg/dL 8.5-10.1 [facility] Work Phone: Serum or plasma creatinine m easurement (mass/volume)on 07-26-2021 Creatinine [Mass/Vol] 0.87 mg/dL 0.55-1.[address] [facility] Work Phone: Comment on above: The validity of the calculated GFR & GFRAA in patients over 70 years has not been determined. Clinical correlation is essential. Serum or plasma urea nitroge n measurement (mass/volume)on 07-26-2021 Urea nitrogen [Mass/Vol] 15 mg/dL 7-18 [facility] Work Phone: Thin prep Papanicolaou smear with manual screeningon 07-26-2021 Thin prep Papanicolaou smear with manual screening 6 5-15 [facility] Work Phone: Absolute lymphocyte counton 07-14-2021 Lymphocytes Auto (Unsp spec) [#/Vol] 1.32 10*3/uL 0.83-4.51 [facility] Work Phone: Basophil percentageon 2021 Basophils/100 WBC (Bld) 0.6 % 0-1 [facility] Work Phone: Bilirubin [Mass/Vol] 0.40 mg/dL 0.20-1.00 [facility] Work Phone: Comment on above: For patients on eltr ombopag therapy, use of Dimension [place] TBIL is not recommended. Chloride [Moles/Vol] 104 mmol/L 98-107 [facility] Work Phone: Eosinophils/100 WBC (Bld) 3.1 % 0-5 [facility] Work Phone: Glucose [Mass/Vol] 201 mg/dL 74-106 [facility] Work Phone: Comment on above: Glucose result great er than or equal to 200 mg/dLsuggests DIABETES MELLITUS per A.D.A. criteria. Neutrophils (Bld) [#/Vol] 3.0 10*3/uL 2.0-7.7 [facility] Work Phone: Neutrophils/100 WBC (Bld) 59.5 % 47-70 [facility] Work Phone: Potassium [Moles/Vol] 4.2 mmol/L 3.5-5.1 [facility] Work Phone: Protein [Mass/Vol] 7.6 g/dL 6.4-8.2 [facility] Work Phone: Sodium [Moles/Vol] 136 mmol/L 136-145 [facility] Work Phone: WBC (Bld) [#/Vol] 5.1 10*3/uL 4.4-11.0 [facility] Work Phone: Blood erythrocytes count (nu mber/volume)on 07-14-2021 RBC (Bld) [#/Vol] 4.23 10*6/uL 4.2-5.4 [facility] Work Phone: Blood hemoglobin measurement (mass/volume)on 07-14-2021 Hemoglobin (Bld) [Mass/Vol] 12.9 g/dL 12.0-15.0 [facility] Work Phone: Blood lymphocytes/100 leukoc yteson 07-14-2021 Lymphocytes/100 WBC (Bld) 26.0 % 19-41 [facility] Work Phone: Blood monocytes/100 leukocyt eson 07-14-2021 Monocytes/100 WBC (Bld) 10.4 % 0-10 [facility] Work Phone: Blood platelet mean volumeon 07-14-2021 Platelet mean volume (Bld) [Entitic vol] 10.9 fL 6.2-12.0 [facility] Work Phone: Determination of erythrocyte mean corpuscular volume (MCV)on 07-14-2021 MCV (RBC) [Entitic vol] 88.9 fL 81-99 [facility] Work Phone: Hematocrit Auto (Bld) [Volum e fraction]on 07-14-2021 Hematocrit (Bld) [Volume fraction] 37.6 % 37-47 [facility] Work Phone: Laboratory - Chemistry and C hemistry - challengeon 07-14-2021 ALP [Catalytic activity/Vol] 144 U/L 45-117 [facility] Work Phone: ALT [Catalytic activity/Vol] 28 U/L 13-56 [facility] Work Phone: CO2 [Moles/Vol] 24.0 mmol/L 21.0-32.0 [facility] Work Phone: Globulin (S) [Mass/Vol] 4.7 g/dL 2.2-4.2 [facility] Work Phone: Urea nitrogen/Creatinine [Mass ratio] 18.0 mg/mg 10-20 [facility] Work Phone: Laboratory - Hematology and Cell countson 07-14-2021 Erythrocyte distribution width (RBC) [Entitic vol] 46.7 fL 35.1-43.9 [facility] Work Phone: Erythrocyte distribution width (RBC) [Ratio] 14.5 % 11.6-14.6 [facility] Work Phone: Immature granulocytes/100 WBC (Bld) 0.400 % 0.0-0.9 [facility] Work Phone: Comment on above: IG% - Immature Granu locytes (promyelocytes, myelocytes and metamyelocytes) > 1% indicates that a LEFT SHIFT is Present. MCH (RBC) [Entitic mass] 30.5 pg 27.0-32.0 [facility] Work Phone: Nucleated RBC/100 WBC (Bld) [Ratio] 0 % 0-5 [facility] Work Phone: MCHC Auto (RBC) [Mass/Vol]on 07-14-2021 MCHC (RBC) [Mass/Vol] 34.3 g/dL 32-[address] [facility] Work Phone: No Panel Informationon 07-14 Estimated GFR (MDRD) Amer 95 mL/min >60 [facility] Work Phone: Comment on above: GFR Calc Estimated GFR (MDRD) Non-Af Amer 78 mL/min >60 [facility] Work Phone: Comment on above: Non- GFR Calc Vitamin D 25-Hydroxy 79.0 ng/mL [facility] Work Phone: Comment on above: Vitamin D 25(OH) Sta tus Range Deficiency <20 ng/mL (50nmol/L) Insufficiency 20 - 30 ng/mL (50 - 75 nmol/L) Sufficiency 30 - 100 ng/mL (75 - 250 nmol/L) Toxicity >100 ng/mL (>250 nmol/L) Platelets bldon 07-14-2021 Platelets (Bld) [#/Vol] 170 10*3/uL 150-450 [facility] Work Phone: Serum or plasma albumin kim urement (mass/volume)on 07-14-2021 Albumin [Mass/Vol] 2.9 g/dL 3.2-5.0 [facility] Work Phone: Serum or plasma albumin/glob ulin mass ratioon 07-14-2021 Albumin/Globulin [Mass ratio] 0.6 {ratio} 0.9-2.4 [facility] Work Phone: Serum or plasma calcium kim urement (mass/volume)on 07-14-2021 Calcium [Mass/Vol] 8.7 mg/dL 8.5-10.1 [facility] Work Phone: Serum or plasma creatinine m easurement (mass/volume)on 07-14-2021 Creatinine [Mass/Vol] 0.78 mg/dL 0.55-1.[address] [facility] Work Phone: Comment on above: The validity of the calculated GFR & GFRAA in patients over 70 years has not been determined. Clinical correlation is essential. Serum or plasma urea nitroge n measurement (mass/volume)on 07-14-2021 Urea nitrogen [Mass/Vol] 14 mg/dL 7-18 [facility] Work Phone: Thin prep Papanicolaou smear with manual screeningon 07-14-2021 Thin prep Papanicolaou smear with manual screening 26 U/L 15-37 [facility] Work Phone: Thin prep Papanicolaou smear with manual screening 8 5-15 [facility] Work Phone: Absolute lymphocyte counton 07-08-2021 Lymphocytes Auto (Unsp spec) [#/Vol] 1.26 10*3/uL 0.83-4.51 [facility] Work Phone: Basophil percentageon 2021 Basophils/100 WBC (Bld) 0.6 % 0-1 [facility] Work Phone: Bilirubin [Mass/Vol] 0.40 mg/dL 0.20-1.00 [facility] Work Phone: Comment on above: For patients on eltr ombopag therapy, use of Dimension [place] TBIL is not recommended. Chloride [Moles/Vol] 104 mmol/L 98-107 [facility] Work Phone: Eosinophils/100 WBC (Bld) 4.5 % 0-5 [facility] Work Phone: Glucose [Mass/Vol] 181 mg/dL 74-106 [facility] Work Phone: Comment on above: Fasting Glucose resu lt greater than or equal to 126 mg/dL suggests DIABETES MELLITUS per A.D.A. criteria. Neutrophils (Bld) [#/Vol] 2.8 10*3/uL 2.0-7.7 [facility] Work Phone: Neutrophils/100 WBC (Bld) 58.0 % 47-70 [facility] Work Phone: Potassium [Moles/Vol] 4.5 mmol/L 3.5-5.[address] [facility] Work Phone: Protein [Mass/Vol] 7.5 g/dL 6.4-8.2 [facility] Work Phone: Sodium [Moles/Vol] 136 mmol/L 136-145 [facility] Work Phone: WBC (Bld) [#/Vol] 4.9 10*3/uL 4.4-11.0 [facility] Work Phone: Blood erythrocytes count (nu mber/volume)on 07-08-2021 RBC (Bld) [#/Vol] 4.16 10*6/uL 4.2-5.4 [facility] Work Phone: Blood hemoglobin measurement (mass/volume)on 07-08-2021 Hemoglobin (Bld) [Mass/Vol] 12.2 g/dL 12.0-15.0 [facility] Work Phone: Blood lymphocytes/100 leukoc yteson 07-08-2021 Lymphocytes/100 WBC (Bld) 25.7 % 19-41 [facility] Work Phone: Blood monocytes/100 leukocyt eson 07-08-2021 Monocytes/100 WBC (Bld) 10.8 % 0-10 [facility] Work Phone: Blood platelet mean volumeon 07-08-2021 Platelet mean volume (Bld) [Entitic vol] 11.2 fL 6.2-12.0 [facility] Work Phone: Determination of erythrocyte mean corpuscular volume (MCV)on 07-08-2021 MCV (RBC) [Entitic vol] 89.2 fL 81-99 [facility] Work Phone: Hematocrit Auto (Bld) [Volum e fraction]on 07-08-2021 Hematocrit (Bld) [Volume fraction] 37.1 % 37-47 [facility] Work Phone: Laboratory - Chemistry and C hemistry - challengeon 07-08-2021 ALP [Catalytic activity/Vol] 131 U/L 45-117 [facility] Work Phone: ALT [Catalytic activity/Vol] 32 U/L 13-56 [facility] Work Phone: CO2 [Moles/Vol] 23.0 mmol/L 21.0-32.0 [facility] Work Phone: Globulin (S) [Mass/Vol] 4.6 g/dL 2.2-4.2 [facility] Work Phone: Urea nitrogen/Creatinine [Mass ratio] 18.5 mg/mg 10-20 [facility] Work Phone: Laboratory - Hematology and Cell countson 07-08-2021 Erythrocyte distribution width (RBC) [Entitic vol] 47.6 fL 35.1-43.9 [facility] Work Phone: Erythrocyte distribution width (RBC) [Ratio] 14.6 % 11.6-14.6 [facility] Work Phone: Immature granulocytes/100 WBC (Bld) 0.400 % 0.0-0.9 [facility] Work Phone: Comment on above: IG% - Immature Granu locytes (promyelocytes, myelocytes and metamyelocytes) > 1% indicates that a LEFT SHIFT is Present. MCH (RBC) [Entitic mass] 29.3 pg 27.0-32.0 [facility] Work Phone: Nucleated RBC/100 WBC (Bld) [Ratio] 0 % 0-5 [facility] Work Phone: MCHC Auto (RBC) [Mass/Vol]on 07-08-2021 MCHC (RBC) [Mass/Vol] 32.9 g/dL 32-[address] [facility] Work Phone: No Panel Informationon 07-08 Estimated GFR (MDRD) Amer 84 mL/min >60 [facility] Work Phone: Comment on above: GFR Calc Estimated GFR (MDRD) Non-Af Amer 69 mL/min >60 [facility] Work Phone: Comment on above: Non- GFR Calc Vitamin D 25-Hydroxy 88.3 ng/mL [facility] Work Phone: Comment on above: Vitamin D 25(OH) Sta tus Range Deficiency <20 ng/mL (50nmol/L) Insufficiency 20 - 30 ng/mL (50 - 75 nmol/L) Sufficiency 30 - 100 ng/mL (75 - 250 nmol/L) Toxicity >100 ng/mL (>250 nmol/L) Platelets bldon 07-08-2021 Platelets (Bld) [#/Vol] 159 10*3/uL 150-450 [facility] Work Phone: Serum or plasma albumin kim urement (mass/volume)on 07-08-2021 Albumin [Mass/Vol] 2.9 g/dL 3.2-5.0 [facility] Work Phone: Serum or plasma albumin/glob ulin mass ratioon 07-08-2021 Albumin/Globulin [Mass ratio] 0.6 {ratio} 0.9-2.4 [facility] Work Phone: Serum or plasma calcium kim urement (mass/volume)on 07-08-2021 Calcium [Mass/Vol] 9.0 mg/dL 8.5-10.1 [facility] Work Phone: Serum or plasma creatinine m easurement (mass/volume)on 07-08-2021 Creatinine [Mass/Vol] 0.87 mg/dL 0.55-1.[address] [facility] Work Phone: Comment on above: The validity of the calculated GFR & GFRAA in patients over 70 years has not been determined. Clinical correlation is essential. Serum or plasma urea nitroge n measurement (mass/volume)on 07-08-2021 Urea nitrogen [Mass/Vol] 16 mg/dL 7-18 [facility] Work Phone: Thin prep Papanicolaou smear with manual screeningon 07-08-2021 Thin prep Papanicolaou smear with manual screening 32 U/L 15-37 [facility] Work Phone: Thin prep Papanicolaou smear with manual screening 9 5-15 [facility] Work Phone: No Panel Informationon 06-12 Vitamin D 25-Hydroxy 101.7 ng/mL [facility] Work Phone: Comment on above: [...] D test results. Office Visit: Diabetes formerly [facility] 10-26-2016 Adolescent depression screening assessment Adolescent depression screening assessment Invalid Interpretation Code [facility] Work Phone: Documentation of current medications (procedure) Done Invalid Interpretation Code [facility] Work Phone: Fall risk assessment Fall risk assessment Invali d Interpretation Code [facility] Work Phone: Tobacco smoking status NHIS Never Invalid Interpretation Code [facility] Work Phone: Tobacco use [facility]PH[facility] Former smoker Invalid Interpretation Code [facility] Work Phone: Office Visit: [facility] 11-05-2015 Breast Mammogram screening Normal Bilateral Invalid Interpretation Code [facility] Work Phone: Colonoscopy (procedure) Colonoscopy (procedure) Invalid Interpretation Code [facility] Work Phone: Culture, urine Bacteria identified Cx Nom (U) Negative [facility] Work Phone: Bacteria identified Cx Nom (U) Escherichia coli [facility] Work Phone: Laboratory - Microbiology an d Antimicrobial susceptibility Bacteria identified Cx Nom (Bld) Negative [facility] Work Phone: No Panel Information SARS-CoV-2 & FLU Antigen (Rapid) [facility] Work Phone: Vital Signs Date Time Vital Sign Value Performing Clinician Facility 10-11-2024 07:00-0400 SaO2% (BldA) [Mass fraction] 95 % Dr. Shayna Malhotra MD Work Phone: [facility] 10-11-2024 06:49-0400 Body temperature 97.6 [degF] Dr. Shayna Malhotra MD Work Phone: [facility] 10-11-2024 06:49-0400 Diastolic blood pressure 76 mm[Hg] Dr. Shayna Malhotra MD Work Phone: [facility] 10-11-2024 06:49-0400 Heart rate 106 /min Dr. Shayna Malhotra MD Work Phone: [facility] 10-11-2024 06:49-0400 Respiratory rate 20 /min Dr. Shayna Malhotra MD Work Phone: [facility] 10-11-2024 06:49-0400 Systolic blood pressure 153 mm[Hg] Dr. Shayna Malhotra MD Work Phone: [facility] 10-11-2024 06:00-0400 Body mass index (BMI) [Ratio] 49.6 kg/m2 Dr. Shayna Malhotra MD Work Phone: [facility] 10-11-2024 06:00-0400 Body weight 135.[address] Shayna Malhotra MD Work Phone: [facility] 10-10-2024 14:58-0400 Body height 165.[address] Shayna Malhotra MD Work Phone: [facility] 10-09-2024 20:55-0400 Diastolic blood pressure 57 mm[Hg] Dr. Shayna Malhotra MD Work Phone: [facility] 10-09-2024 20:55-0400 Heart rate 102 /min Dr. Shayna Malhotra MD Work Phone: [facility] 10-09-2024 20:55-0400 Respiratory rate 20 /min Dr. Shayna aMlhotra MD Work Phone: [facility] 10-09-2024 20:55-0400 SaO2% (BldA) [Mass fraction] 98 % Dr. Shayna Malhotra MD Work Phone: [facility] 10-09-2024 20:55-0400 Systolic blood pressure 121 mm[Hg] Dr. Shayna Malhotra MD Work Phone: [facility] 10-09-2024 16:55-0400 Body height 165.[address] Shayna Malhotra MD Work Phone: [facility] 10-09-2024 16:55-0400 Body mass index (BMI) [Ratio] 49.1 kg/m2 Dr. Shayna Malhotra MD Work Phone: [facility] 10-09-2024 16:55-0400 Body temperature 97.8 [degF] Dr. Shayna Malhotra MD Work Phone: [facility] 10-09-2024 16:55-0400 Body weight [address] Shayna Malhotra MD Work Phone: [facility] 07-04-2024 13:06-0500 Body mass index (BMI) [Ratio] 49.9 kg/m2 Dr. Shayna Malhotra MD Work Phone: [facility] 07-04-2024 13:06-0500 Body temperature 97.8 [degF] Dr. Shayna Malhotra MD Work Phone: [facility] 07-04-2024 13:06-0500 Body weight 136.[address] Shayna Malhotra MD Work Phone: [facility] 07-04-2024 13:06-0500 Diastolic blood pressure 80 mm[Hg] Dr. Shayna Malhotra MD Work Phone: [facility] 07-04-2024 13:06-0500 Heart rate 107 /min Dr. Shayna Malhotra MD Work Phone: [facility] 07-04-2024 13:06-0500 Respiratory rate 16 /min Dr. Shayna Malhotra MD Work Phone: [facility] 07-04-2024 13:06-0500 SaO2% (BldA) [Mass fraction] 94 % Dr. Shayna Malhotra MD Work Phone: [facility] 07-04-2024 13:06-0500 Systolic blood pressure 142 mm[Hg] Dr. Shayna Malhotra MD Work Phone: [facility] 01-09-2023 19:06-0400 Body temperature 99.5 [degF] Dr. Shayna Malhotra Work Phone: [facility] 01-09-2023 19:06-0400 Heart rate 115 /min Dr. Shayna Malhotra Work Phone: [facility] 01-09-2023 19:06-0400 Respiratory rate 16 /min Dr. Shayna Malhotra Work Phone: [facility] 01-09-2023 19:06-0400 SaO2% (BldA) [Mass fraction] 95 % Dr. Shayna Malhotra Work Phone: [facility] 01-09-2023 17:53-0400 Diastolic blood pressure 89 mm[Hg] Dr. Shayna Malhotra Work Phone: [facility] 01-09-2023 17:53-0400 Systolic blood pressure 166 mm[Hg] Dr. Shayna Malhotra Work Phone: [facility] 01-09-2023 17:15-0400 Body height 165.[address] Shayna Malhotra Work Phone: [facility] 01-09-2023 17:15-0400 Body mass index (BMI) [Ratio] 51 kg/m2 Dr. Shayna Malhotra Work Phone: [facility] 01-09-2023 17:15-0400 Body weight 139.[address] Shayna Malhotra Work Phone: [facility] 11-24-2022 13:42-0400 Body mass index (BMI) [Ratio] 51.4 kg/m2 Dr. Shayna Malhotra Work Phone: [facility] 11-24-2022 13:42-0400 Body temperature 97.9 [degF] Dr. Shayna Malhotra Work Phone: [facility] 11-24-2022 13:42-0400 Body weight 140.[address] Shayna Malhotra Work Phone: [facility] 11-24-2022 13:42-0400 Diastolic blood pressure 67 mm[Hg] Dr. Shayna Malhotra Work Phone: [facility] 11-24-2022 13:42-0400 Heart rate 112 /min Dr. Shayna Malhotra Work Phone: [facility] 11-24-2022 13:42-0400 Respiratory rate 20 /min Dr. Shayna Malhotra Work Phone: [facility] 11-24-2022 13:42-0400 SaO2% (BldA) [Mass fraction] 92 % Dr. Shayna Malhotra Work Phone: [facility] 11-24-2022 13:42-0400 Systolic blood pressure 125 mm[Hg] Dr. Shayna Malhotra Work Phone: [facility] 05-06-2022 16:07-0500 Body height 165.[address] Shayna Malhotra Work Phone: [facility] 05-06-2022 16:07-0500 Body mass index (BMI) [Ratio] 49.4 kg/m2 Dr. Shayna Malhotra Work Phone: [facility] 05-06-2022 16:07-0500 Body temperature 98.6 [degF] Dr. Shayna Malhotra Work Phone: [facility] 05-06-2022 16:07-0500 Body weight 134.[address] Shayna Malhotra Work Phone: [facility] 05-06-2022 16:07-0500 Diastolic blood pressure 91 mm[Hg] Dr. Shayna Malhotra Work Phone: [facility] 05-06-2022 16:07-0500 Heart rate 118 /min Dr. Shayna Malhotra Work Phone: [facility] 05-06-2022 16:07-0500 Respiratory rate 18 /min Dr. Shayna Malhotra Work Phone: [facility] 05-06-2022 16:07-0500 SaO2% (BldA) [Mass fraction] 96 % Dr. Shayna Malhotra Work Phone: [facility] 05-06-2022 16:07-0500 Systolic blood pressure 167 mm[Hg] Dr. Shayna Malhotra Work Phone: [facility] 11-24-2021 16:06-0400 Heart rate 100 /min Dr. Shayna Malhotra Work Phone: [facility] Work Phone: 11-24-2021 16:04-0400 Body temperature 98.4 [degF] Dr. Shayna Malhotra Work Phone: [facility] Work Phone: 11-24-2021 16:04-0400 Diastolic blood pressure 82 mm[Hg] Dr. Shayna Malhotra Work Phone: [facility] Work Phone: 11-24-2021 16:04-0400 Respiratory rate 17 /min Dr. Shayna Malhotra Work Phone: [facility] Work Phone: 11-24-2021 16:04-0400 SaO2% (BldA) [Mass fraction] 95 % Dr. Shayna Malhotra Work Phone: [facility] Work Phone: 11-24-2021 16:04-0400 Systolic blood pressure 147 mm[Hg] Dr. Shayna Malhotra Work Phone: [facility] Work Phone: 11-24-2021 08:43-0400 Body temperature 98 [degF] Dr. Shayna Malhotra Work Phone: [facility] Work Phone: 11-24-2021 08:43-0400 Diastolic blood pressure 61 mm[Hg] Dr. Shayna Malhotra Work Phone: [facility] Work Phone: 11-24-2021 08:43-0400 Heart rate 94 /min Dr. Shayna Malhotra Work Phone: [facility] Work Phone: 11-24-2021 08:43-0400 Respiratory rate 15 /min Dr. Shayna Malhotra Work Phone: [facility] Work Phone: 11-24-2021 08:43-0400 SaO2% (BldA) [Mass fraction] 95 % Dr. Shayna Malhotra Work Phone: [facility] Work Phone: 11-24-2021 08:43-0400 Systolic blood pressure 113 mm[Hg] Dr. Shayna Malhotra Work Phone: [facility] Work Phone: 11-24-2021 06:00-0400 Body weight 141.[address] Shayna Malhotra Work Phone: [facility] Work Phone: 11-23-2021 09:21-0400 Body height 165.[address] Shayna Malhotra Work Phone: [facility] Work Phone: 11-22-2021 17:49-0400 Body height 165.[address] Shayna Malhotra Work Phone: [facility] Work Phone: 11-22-2021 17:49-0400 Body mass index (BMI) [Ratio] 51.5 kg/m2 Dr. Shayna Malhotra Work Phone: [facility] Work Phone: 11-22-2021 17:49-0400 Body weight 140.[address] Shayna Malhotra Work Phone: [facility] Work Phone: 11-22-2021 17:05-0400 Body temperature 98.9 [degF] Dr. Shayna Malhotra Work Phone: [facility] Work Phone: 11-22-2021 17:05-0400 Diastolic blood pressure 78 mm[Hg] Dr. Shayna Malhotra Work Phone: [facility] Work Phone: 11-22-2021 17:05-0400 Heart rate 120 /min Dr. Shayna Malhotra Work Phone: [facility] Work Phone: 11-22-2021 17:05-0400 Respiratory rate 28 /min Dr. Shayna Malhotra Work Phone: [facility] Work Phone: 11-22-2021 17:05-0400 SaO2% (BldA) [Mass fraction] 96 % Dr. Shayna Malhotra Work Phone: [facility] Work Phone: 11-22-2021 17:05-0400 Systolic blood pressure 119 mm[Hg] Dr. Shayna Malhotra Work Phone: [facility] Work Phone: 10-02-2021 12:46-0400 Body height 165.1 cm Jennifer Cuevas MD Work Phone: [facility] 10-02-2021 12:46-0400 Body temperature 97.39 [degF] Jennifer Cuevas MD Work Phone: [facility] 10-02-2021 12:46-0400 Body weight 136.53 kg Jennifre Cuevas MD Work Phone: [facility] 10-02-2021 12:46-0400 Diastolic blood pressure 85 mm[Hg] Jennifer Cuevas MD Work Phone: [facility] 10-02-2021 12:46-0400 Heart rate 103 /min Jennifer Cuevas MD Work Phone: [facility] 10-02-2021 12:46-0400 Respiratory rate 20 /min Jennifer Cuevas MD Work Phone: [facility] 10-02-2021 12:46-0400 SaO2% (BldA) [Mass fraction] 98 % Jennifer Cuevas MD Work Phone: [facility] 10-02-2021 12:46-0400 Systolic blood pressure 152 mm[Hg] Jennifer Cuevas MD Work Phone: [facility] 09-22-2021 09:30-0400 Body temperature 98.4 [degF] Dr. Shayna Malhotra Work Phone: [facility] Work Phone: 09-22-2021 09:30-0400 Diastolic blood pressure 87 mm[Hg] Dr. Shayna Malhotra Work Phone: [facility] Work Phone: 09-22-2021 09:30-0400 Heart rate 85 /min Dr. Shayna Malhotra Work Phone: [facility] Work Phone: 09-22-2021 09:30-0400 Respiratory rate 17 /min Dr. Shayna Malhotra Work Phone: [facility] Work Phone: 09-22-2021 09:30-0400 SaO2% (BldA) [Mass fraction] 94 % Dr. Shayna Malhotra Work Phone: [facility] Work Phone: 09-22-2021 09:30-0400 Systolic blood pressure 151 mm[Hg] Dr. Shayna Malhotra Work Phone: [facility] Work Phone: 09-20-2021 13:57-0400 Body height 166.[address] Shayna Malhotra Work Phone: [facility] Work Phone: 09-20-2021 13:57-0400 Body weight 137.[address] Shayna Malhotra Work Phone: [facility] Work Phone: 09-20-2021 12:38-0400 Body mass index (BMI) [Ratio] 49.6 kg/m2 Dr. Shayna Malhotra Work Phone: [facility] Work Phone: 09-20-2021 12:06-0400 Body temperature 98 [degF] Dr. Shayna Malhotra Work Phone: [facility] Work Phone: 09-20-2021 12:06-0400 Diastolic blood pressure 71 mm[Hg] Dr. Shayna Malhotra Work Phone: [facility] Work Phone: 09-20-2021 12:06-0400 Heart rate 101 /min Dr. Shayna Malhotra Work Phone: [facility] Work Phone: 09-20-2021 12:06-0400 Respiratory rate 16 /min Dr. Shayna Malhotra Work Phone: [facility] Work Phone: 09-20-2021 12:06-0400 SaO2% (BldA) [Mass fraction] 97 % Dr. Shayna Malhotra Work Phone: [facility] Work Phone: 09-20-2021 12:06-0400 Systolic blood pressure 163 mm[Hg] Dr. Shayna Malhotra Work Phone: [facility] Work Phone: 09-20-2021 07:17-0400 Body height 165.[address] Shayna Malhotra Work Phone: [facility] Work Phone: 09-20-2021 07:17-0400 Body mass index (BMI) [Ratio] 52.5 kg/m2 Dr. Shayna Malhotra Work Phone: [facility] Work Phone: 09-20-2021 07:17-0400 Body weight 143.[address] Shayna Malhotra Work Phone: [facility] Work Phone: 09-01-2021 15:00-0400 Body height 165.1 cm Pst 1 [facility] 09-01-2021 15:00-0400 Body temperature 97.5 [degF] Pst 1 [facility] 09-01-2021 15:00-0400 Body weight 128.82 kg Pst 1 [facility] 09-01-2021 15:00-0400 Diastolic blood pressure 71 mm[Hg] Pst 1 [facility] 09-01-2021 15:00-0400 Heart rate 97 /min Pst 1 [facility] 09-01-2021 15:00-0400 Respiratory rate 18 /min Pst 1 [facility] 09-01-2021 15:00-0400 SaO2% (BldA) [Mass fraction] 97 % Pst 1 [facility] 09-01-2021 15:00-0400 Systolic blood pressure 127 mm[Hg] Pst 1 [facility] 08-11-2021 09:26-0500 Body mass index (BMI) [Ratio] 50.9 kg/m2 Dr. Shayna Malhotra Work Phone: [facility] Work Phone: 08-11-2021 09:26-0500 Body temperature 98.2 [degF] Dr. Shayna Malhotra Work Phone: [facility] Work Phone: 08-11-2021 09:26-0500 Body weight 138.[address] Shayna Malhotra Work Phone: [facility] Work Phone: 08-11-2021 09:26-0500 Diastolic blood pressure 83 mm[Hg] Dr. Shayna Malhotra Work Phone: [facility] Work Phone: 08-11-2021 09:26-0500 Heart rate 114 /min Dr. Shayna Malhotra Work Phone: [facility] Work Phone: 08-11-2021 09:26-0500 Respiratory rate 16 /min Dr. Shayna Malhotra Work Phone: [facility] Work Phone: 08-11-2021 09:26-0500 SaO2% (BldA) [Mass fraction] 96 % Dr. Shayna Malhotra Work Phone: [facility] Work Phone: 08-11-2021 09:26-0500 Systolic blood pressure 151 mm[Hg] Dr. Shayna Malhotra Work Phone: [facility] Work Phone: 08-11-2021 08:26-0500 Body mass index (BMI) [Ratio] 50.9 kg/m2 Dr. Shayna Malhotra Work Phone: [facility] Work Phone: 08-11-2021 08:26-0500 Body temperature 98.2 [degF] Dr. Shayna Malhotra Work Phone: [facility] Work Phone: 08-11-2021 08:26-0500 Body weight 138.[address] Shayna Malhotra Work Phone: [facility] Work Phone: 08-11-2021 08:26-0500 Diastolic blood pressure 83 mm[Hg] Dr. Shayna Malhotra Work Phone: [facility] Work Phone: 08-11-2021 08:26-0500 Heart rate 114 /min Dr. Shayna Malhotra Work Phone: [facility] Work Phone: 08-11-2021 08:26-0500 Respiratory rate 16 /min Dr. Shayna Malhotra Work Phone: [facility] Work Phone: 08-11-2021 08:26-0500 SaO2% (BldA) [Mass fraction] 96 % Dr. Shayna Malhotra Work Phone: [facility] Work Phone: 08-11-2021 08:26-0500 Systolic blood pressure 151 mm[Hg] Dr. Shayna Malhotra Work Phone: [facility] Work Phone: 07-30-2021 14:36-0500 Body mass index (BMI) [Ratio] 50.8 kg/m2 Dr. Shayna Malhotra Work Phone: [facility] Work Phone: 07-30-2021 14:36-0500 Body temperature 98.6 [degF] Dr. Shayna Malhotra Work Phone: [facility] Work Phone: 07-30-2021 14:36-0500 Body weight 138.[address] Shayna Malhotra Work Phone: [facility] Work Phone: 07-30-2021 14:36-0500 Heart rate 106 /min Dr. Shayna Malhotra Work Phone: [facility] Work Phone: 07-30-2021 14:36-0500 Respiratory rate 15 /min Dr. Shayna Malhotra Work Phone: [facility] Work Phone: 07-30-2021 13:36-0500 Body mass index (BMI) [Ratio] 50.8 kg/m2 Dr. Shayna Malhotra Work Phone: [facility] Work Phone: 07-30-2021 13:36-0500 Body temperature 98.6 [degF] Dr. Shayna Malhotra Work Phone: [facility] Work Phone: 07-30-2021 13:36-0500 Body weight 138.[address] Shayna Malhotra Work Phone: [facility] Work Phone: 07-30-2021 13:36-0500 Heart rate 106 /min Dr. Shayna Malhotra Work Phone: [facility] Work Phone: 07-30-2021 13:36-0500 Respiratory rate 15 /min Dr. Shayna Malhotra Work Phone: [facility] Work Phone: 07-26-2021 12:28-0500 Diastolic blood pressure 72 mm[Hg] Dr. Shayna Malhotra Work Phone: [facility] Work Phone: 07-26-2021 12:28-0500 Heart rate 98 /min Dr. Shayna Malhotra Work Phone: [facility] Work Phone: 07-26-2021 12:28-0500 Respiratory rate 23 /min Dr. Shayna Malhotra Work Phone: [facility] Work Phone: 07-26-2021 12:28-0500 SaO2% (BldA) [Mass fraction] 99 % Dr. Shayna Malhotra Work Phone: [facility] Work Phone: 07-26-2021 12:28-0500 Systolic blood pressure 140 mm[Hg] Dr. Shayna Malhotra Work Phone: [facility] Work Phone: 07-26-2021 11:28-0500 Diastolic blood pressure 72 mm[Hg] Dr. Shayna Malhotra Work Phone: [facility] Work Phone: 07-26-2021 11:28-0500 Heart rate 98 /min Dr. Shayna Malhotra Work Phone: [facility] Work Phone: 07-26-2021 11:28-0500 Respiratory rate 23 /min Dr. Shayna Malhotra Work Phone: [facility] Work Phone: 07-26-2021 11:28-0500 SaO2% (BldA) [Mass fraction] 99 % Dr. Shayna Malhotra Work Phone: [facility] Work Phone: 07-26-2021 11:28-0500 Systolic blood pressure 140 mm[Hg] Dr. Shayna Malhotra Work Phone: [facility] Work Phone: 07-26-2021 09:16-0500 Body mass index (BMI) [Ratio] 52.2 kg/m2 Dr. Shayna Malhotra Work Phone: [facility] Work Phone: 07-26-2021 09:16-0500 Body temperature 97.2 [degF] Dr. Shayna Malhotra Work Phone: [facility] Work Phone: 07-26-2021 09:16-0500 Body weight 142.[address] Shayna Malhotra Work Phone: [facility] Work Phone: 07-26-2021 08:16-0500 Body mass index (BMI) [Ratio] 52.2 kg/m2 Dr. Shayna Malhotra Work Phone: [facility] Work Phone: 07-26-2021 08:16-0500 Body temperature 97.2 [degF] Dr. Shayna Malhotra Work Phone: [facility] Work Phone: 07-26-2021 08:16-0500 Body weight 142.[address] Shayna Malhotra Work Phone: [facility] Work Phone: 10-26-2016 15:36-0400 BMI (Body Mass Index) 41.6 kg/m2 Sena Cox NP [facility] Work Phone: 10-26-2016 15:36-0400 BP Diastolic 97 mm[Hg] Sena Cox NP [facility] Work Phone: 10-26-2016 15:36-0400 BP Systolic 155 mm[Hg] Sena [facility] NP [facility] Work Phone: 10-26-2016 15:36-0400 BSA (Body Surface Area) 2.12 m2 Snea Cox NP [facility] Work Phone: 10-26-2016 15:36-0400 Height 162.56 cm Sena Cox NP [facility] Work Phone: 10-26-2016 15:36-0400 Pulse (Heart Rate) 101 /min [facility] Work Phone: 10-26-2016 15:36-0400 Pulse Oximetry 97 % Sena Cox NP [facility] Work Phone: 10-26-2016 15:36-0400 Respiratory Rate 16 /min Sena Cox NP [facility] Work Phone: 10-26-2016 15:36-0400 Weight 109.95 kg Sena Cox [facility] Work Phone: Encounters Encounter Date Encounter Type Care Provider Facility Start: 04-16-2025 ambulatory Shayna Marya Facility :[facility] Start: 04-01-2025 ambulatory Shaynadesi Malhotra Facility :[facility] Start: 03-20-2025 ambulatory Shaynadesi Malhotra Facility :[facility] Start: 01-21-2025 ambulatory Shaynadesi Malhotra Facility :[facility] Start: 01-21-[address] [facility] Work Phone: Start: 12-04-2024 End: 12-04-[address] Shayna Malhotra MD Work Phone: -[facility] Start: 12-04-2024 End: 12-04-[address] Malathi Tomas MD -[facility] Start: 12-04-2024 End: 12-04-2024 ambulatory Shaynadesi Malhotra Facility:[facility] Start: 11-26-2024 ambulatory Shaynadesi Malhotra Facility :[facility] Start: 11-26-[address] Malathi Tomas MD -[facility] Start: 11-07-2024 ambulatory Shaynadesi Malhotra Facility :[facility] Start: 11-01-2024 ambulatory Shayna Malhotra Facility :[facility] Start: 10-30-2024 ambulatory Shaynadesi Malhotra Facility :[facility] Start: 10-25-2024 ambulatory Shaynadesi Malhotra Facility :[facility] Start: 10-11-2024 End: 10-11-2024 ambulatory Shea Lele Facility:[facility] Start: 10-10-2024 Non-patient / Non-visit Dr. Tyrell Page MD -[facility] Work Phone: Start: 10-09-2024 ambulatory Missael Whitfield ty:[facility] Start: 10-09-2024 End: 05-08-2025 Evaluation and management of inpatient Dr. Missael Hernandez DO -[facility] Work Phone: Start: 10-09-2024 Registered Referred Shayna Resendez [facility] Work Phone: Start: 10-08-2024 End: 10-09-2024 ambulatory Shayna ROSA Facility:[facility] Start: 07-09-2024 ambulatory Shayna ROSA Faci lity:[facility] Start: 07-09-2024 Registered Referred Shayna Resendez [facility] Work Phone: Start: 07-04-2024 End: 07-04-[address] Shayna Malhotra MD -[facility] Work Phone: Start: 07-04-2024 End: 07-04-2024 ambulatory Shayna Malhotra Facility:[facility] Start: 06-22-2024 ambulatory [facility] Marya Facility :[facility] Start: 05-28-2024 End: 05-28-2024 [facility] Facility:[facility] Start: 07-08-2023 End: 07-08-2023 ambulatory [facility] Work Phone: Start: 07-08-2023 End: 07-08-2023 Departed Referred [facility] Work Phone: Start: 04-08-2023 End: 04-08-2023 Departed Referred [facility] Work Phone: Start: 01-09-2023 End: 01-09-2023 Emergency department patient visit Dr. Shayna Malhotra Work Phone: [facility] Work Phone: Start: 11-24-2022 End: 11-24-[address] Shayna Malhotra Work Phone: [facility] Work Phone: Start: 10-13-2022 End: 10-13-[address] Shayna Malhotra Work Phone: [facility] Work Phone: Start: 08-12-2022 End: 08-12-[address] Shayna Malhotra Work Phone: [facility] Work Phone: Start: 08-12-2022 End: 08-12-[address] Shayna Malhotra Work Phone: [facility] Start: 07-13-2022 End: 07-13-[address] Shayna Malhotra Work Phone: [facility] Work Phone: Start: 07-13-2022 End: 07-13-[address] Shayna Malhotra Work Phone: [facility] Start: 06-08-2022 End: 06-08-[address] Shayna Malhtora Work Phone: [facility] Work Phone: Start: 06-08-2022 End: 06-08-[address] Shayna Malhotra Work Phone: [facility] Start: 05-06-2022 End: 05-06-[address] Shayna Malhotra Work Phone: [facility] Start: 04-13-2022 End: 04-13-2022 ambulatory [facility] Work Phone: Start: 04-13-2022 End: 04-13-2022 Departed Referred [facility] Start: 01-01-2022 End: 01-01-[address] Shayna Malhotra Work Phone: [place] [id number] Start: 12-11-[address] Shayna Malhotra Work Phone: [facility] [phone] Start: 12-01-[address] Shayna Malhotra Work Phone: [facility] 100/[phone] Start: 11-27-[address] Shayna Malhotra Work Phone: [facility] 100/200 Start: 11-24-2021 Non-patient / Non-visit Dr. Maryanne Malhotra Work Phone: [facility] Start: 11-23-2021 Non-patient / Non-visit Dr. Maryanne Malhotra Work Phone: [facility] Start: 11-23-2021 End: 11-24-2021 Non-patient / Non-visit Dr. Shayna Malhotra Work Phone: [facility] Start: 11-22-2021 Non-patient / Non-visit Dr. Maryanne Malhotra Work Phone: [facility] Start: 11-22-2021 End: 11-24-2021 Evaluation and management of inpatient Dr. Shayna Malhotra Work Phone: [facility]Int[facility] Care Unit Start: 10-27-2021 End: 10-27-[address] Shayna Malhotra Work Phone: [facility] Start: 10-13-2021 End: 10-13-[address] Shayna Malhotra Work Phone: [facility] Start: 10-13-[address] Shayna Malhotra Work Phone: [facility] Start: 10-02-2021 End: 10-02-2021 ambulatory Jennifer Cuevas MD Work Phone: [facility] Gynecology Oncology Comment on above: Endometrial cancer ( HCC) (Primary Dx) Start: 10-02-2021 End: 10-02-2021 Patient encounter procedure Jennifer Cuevas MD Work Phone: [facility] Start: 09-22-2021 Non-patient / Non-visit Dr. Maryanne Malhotra Work Phone: [facility] Start: 09-21-2021 Telephone encounter Jennifer prasad MD Work Phone: [facility] Gynecology Oncology Comment on above: Appointment Cancelle d Start: 09-21-2021 Non-patient / Non-visit Dr. Maryanne Malhotra Work Phone: [facility] Start: 09-20-2021 Non-patient / Non-visit Dr. Maryanne Malhotra Work Phone: [facility] Start: 09-20-2021 End: 09-22-2021 Evaluation and management of inpatient Dr. Shayna Malhotra Work Phone: [facility] Start: 09-10-2021 Telephone encounter Taniya Balderas APRN.CNP Work Phone: [facility] Gynecology Oncology Comment on above: Results Start: 09-10-2021 End: 09-10-[address] Shayna Malhotra Work Phone: [facility] Start: 09-10-[address] Shayna Malhotra Work Phone: [facility] Start: 09-09-2021 Telephone encounter Jennifer prasad MD Work Phone: [facility] Gynecology Oncology Comment on above: Patient Update Start: 09-01-2021 End: 09-01-2021 Admission to [address] Start: 09-01-2021 End: 09-01-2021 ambulatory Pst [...] encounter procedure Dr. [facility]ra [facility] Start: 08-07-2021 End: 08-07-[address] [facility] Malhot[facility] Start: 07-30-[address] Shayna Malhotra Work Phone: [facility] Oncology Start: 07-30-2021 End: 07-30-[address] Shayna Malhotra Work Phone: [facility] Start: 07-26-2021 End: 07-26-2021 Emergency department patient visit Dr. Shayna Malhotra Work Phone: [facility]Emergency Department Start: 07-14-[address] Shayna Malhotra Work Phone: [facility] Start: 07-08-[address] Shayna Malhotra Work Phone: [facility] Start: 06-12-[address] Shayna Malhotra Work Phone: [facility] Procedures Date Procedure Procedure Detail Performing Clinician [...] Speci men Type: BLOOD SPECIMEN Ordering Facility: [facility] Address: [address] [place], [place] [id number] Performed By: #### T [id number] #### [facility] CLIA [id number] [address] Start: 08-11-2021 Plain chest X-ray Dr. [...] Activity Detail Author Start: 10-11-2024 Patient discharge [facility] Start: 10-10-2024 [facility] Start: 10-10-2024 Consultation [facility] Start: 10-10-2024 Patient referral to dietitian [facility] Start: 10-09-2024 Following clinical pathway protocol [facility] Start: 10-09-2024 Assessment of risk o f venous thromboembolism [facility] Start: 10-09-2024 Care regimes management [facility] Start: 10-09-2024 Incentive spirometry [facility] Start: 10-09-2024 Insertion of cathete r into peripheral vein [facility] Start: 10-09-2024 Measuring intake and output [facility] Start: 10-09-2024 Notification of physician [facility] Start: 10-09-2024 Oxygen therapy [facility] Start: 10-09-2024 Providing care accor ding to standard [facility] Start: 10-09-2024 Provision of activit y privileges [facility] Start: 10-09-2024 Referral to occupati onal therapist [facility] Start: 10-09-2024 Referral to service [facility] Start: 10-09-2024 Seizure precautions [facility] Start: 10-09-2024 End: 10-09-2024 [facility] Start: 10-09-2024 MR Lower extremity W O contrast [facility] Start: 10-09-2024 MRI of lower extremity Extremi ty Lower without Contra [facility] Start: 10-09-2024 Verification routine [facility] Start: 10-09-2024 Admission procedure [facility] Start: 10-09-2024 Hospital admission, emergency, from emergency room, medical nature [facility] Start: 10-09-2024 End: 10-10-2024 [facility] Start: 10-09-2024 Thyroid stimulating hormone measurement [facility] Start: 10-09-2024 Consultation [facility] Start: 10-09-2024 Bacteria identified in Urine by Culture Urine Culture [facility] Start: 10-09-2024 Urine culture [facility] Start: 10-09-2024 Consultation [facility] Start: 10-09-2024 Patient referral to dietitian [facility] Start: 09-07-2024 DIABETES SCREEN DIABETES SCREEN [facility] Start: 07-04-2024 Patient referral [facility] Work Phone: Start: 11-24-2022 Patient referral [facility] Work Phone: Start: 05-06-2022 Patient referral [facility] Work Phone: Start: 02-04-2022 Influenza vaccination INFLUENZ A (Season Ended) [facility] Start: 11-25-2021 [facility] Work Phone: Start: 11-24-2021 Patient discharge [facility] Work Phone: Start: 11-22-2021 Troponin I measurement [facility] Work Phone: Start: 11-22-2021 Verification routine [facility] Work Phone: Start: 11-22-2021 Patient referral to dietitian [facility] Work Phone: Start: 11-22-2021 Following clinical pathway protocol [facility] Work Phone: Start: 11-22-2021 Assessment of risk o f venous thromboembolism [facility] Work Phone: Start: 11-22-2021 Care regimes management [facility] Work Phone: Start: 11-22-2021 Catheterization of vein [facility] Work Phone: Start: 11-22-2021 Insertion of cathete r into peripheral vein [facility] Work Phone: Start: 11-22-2021 Measuring intake and output [facility] Work Phone: Start: 11-22-2021 Providing care accor ding to standard [facility] Work Phone: Start: 11-22-2021 Provision of activit y privileges [facility] Work Phone: Start: 11-22-2021 Referral to occupati onal therapist [facility] Work Phone: Start: 11-22-2021 Referral to service [facility] Work Phone: Start: 11-22-2021 [facility] Work Phone: Start: 11-22-2021 Viral nucleic acid assay [facility] Work Phone: Start: 11-22-2021 Admission procedure [facility] Work Phone: Start: 11-22-2021 [facility] Work Phone: Start: 11-22-2021 End: 11-23-2021 [facility] Work Phone: Start: 11-22-2021 End: 11-22-2021 Blood culture [facility] Work Phone: Start: 09-22-2021 Patient discharge [facility] Work Phone: Start: 09-20-2021 End: 09-21-2021 [facility] Work Phone: Start: 09-20-2021 Following clinical pathway protocol [facility] Work Phone: Start: 09-20-2021 Assessment of risk o f venous thromboembolism [facility] Work Phone: Start: 09-20-2021 Care regimes management [facility] Work Phone: Start: 09-20-2021 Elevation of affecte d extremity [facility] Work Phone: Start: 09-20-2021 Insertion of cathete r into peripheral vein [facility] Work Phone: Start: 09-20-2021 Notification of physician [facility] Work Phone: Start: 09-20-2021 Providing care accor ding to standard [facility] Work Phone: Start: 09-20-2021 Provision of activit y privileges [facility] Work Phone: Start: 09-20-2021 Referral to occupati onal therapist [facility] Work Phone: Start: 09-20-2021 Referral to service [facility] Work Phone: Start: 09-20-2021 Self-administration of medication [facility] Work Phone: Start: 09-20-2021 Admission procedure [facility] Work Phone: Start: 09-20-2021 Patient referral to dietitian [facility] Work Phone: Start: 09-01-2021 End: 11-01-2021 CBC panel - Blood by Automated count [facility] Work Phone: Comment on above: Expected: 09/01/2021 , Expires: 11/01/2021 Start: 09-01-2021 End: 11-01-2021 CONFIRM BLOOD TYPE [facility] Work Phone: Comment on above: Expected: 09/01/2021 , Expires: 11/01/2021 Start: 09-01-2021 End: 11-01-2021 TYPE AND SCREEN,30 DAY [facility] Work Phone: Comment on above: Expected: 09/01/2021 , Expires: 11/01/2021 Start: 07-26-2021 Referral to oncologist [facility] Work Phone: Start: 06-06-2021 ADVANCE DIRECTIVE DISCUSSION ADVANCE DIRECTIVE DISCUSSION [facility] Start: 02-09-2021 LIPID SCREEN LIPID SCREEN [facility] Start: 02-04-2021 Influenza vaccination INFLUENZA (#1) [facility] Start: 03-01-2019 DIABETES SCREEN DIABETES SCREEN [facility] Start: 2017 BONE DENSITY BONE DENSITY [facility] Start: 2017 PNEUMOVAX AGE 65 AND OVER WITH 5YR LOOKBACK (#1) PNEUMOVAX AGE 65 AND OVER WITH 5YR LOOKBACK (#1) [facility] Start: 02-09-2017 Adult depression screening assessment DEPRESSION SCREENING [facility] Start: 02-09-2017 Mammography MAMMOGRAM [facility] Start: 12-09-2016 End: 12-09-2016 Appointment [facility] Work Phone: Start: 10-26-2016 End: 10-26-2016 Appointment Appointment [facility] Work Phone: Start: 10-26-2016 End: 10-26-2016 Appointment Appointment [facility] Work Phone: Start: 10-26-2016 End: 11-01-2016 *CMP Complete Metabolic Panel *CMP Complete Metabolic Panel [facility] Work Phone: Start: 10-26-2016 End: 11-01-2016 *Microalbumin, Creatine Ratio, rand urine *Microalbumin, Creatine Ratio, rand urine [facility] Work Phone: Start: 10-26-2016 End: 11-01-2016 HbA1c *HgA1C [facility] Work Phone: Start: 10-26-2016 End: 11-01-2016 Lipid panel [AGGREGATE] *Lipid Profile [facility] Work Phone: Start: 09-05-2011 PNEUMOCOCCAL: 65+ (2 - PCV) PNEUMOCOCCAL: 65+ (2 - PCV) [facility] Start: 2002 SHINGRIX VACCINE (1 of 2) SHINGRIX VACCINE (1 of 2) [facility] Start: 1997 COLOGUARD (FIT-DNA) COLOGUARD (FIT-D NA) [facility] Start: 1997 Colonoscopy COLONOSCOPY [facility] Start: 1997 COLORECTAL CANCER SCREENING COLORECTAL CANCER SCREENING [facility] Start: [address] COLONOGRAPHY [facility] Start: 1997 FECAL OCCULT BLOOD FECAL OCCULT BLOO D [facility] Start: 1997 SIGMOIDOSCOPY SIGMOIDOSCOPY [facility] Start: 12-28-1971 SHINGRIX VACCINE (1 of 2) SHINGRIX VACCINE (1 of 2) [facility] Start: 12-28-1971 Urine microalbumin profile DTAP,TDAP,TD (1 - Tdap) [facility] Start: 1957 COVID-19 VACCINE (#1) COVID-19 VACCI NE (#1) [facility] Start: 1957 COVID-19 VACCINE (1) COVID-19 VACCIN E (1) [facility] Amphetamines [Presen ce] in Urine by Screen method >1000 ng/mL [facility] Bacteria identified in Blood by Culture Blood Culture [facility] Work Phone: Bacteria identified in Urine by Culture Urine Culture [facility] Work Phone: Benzodiazepine measurement, urine [facility] Blood culture [facility] Work Phone: C reactive protein [Mass/volume] in Serum or Plasma [facility] Cancer Ag 125 [Units/volume] in Serum or Plasma [facility] Work Phone: Cocaine measurement, urine [facility] Erythrocyte sedimentation rate [facility] Ethanol [Mass/volume ] in Serum or Plasma [facility] fentaNYL [Presence] in Urine by Screen method [facility] Folate [Moles/volume ] in Serum or Plasma [facility] Hemoglobin A1c/Hemoglobin.total in Blood [facility] Magnesium measurement [facility] Methadone measuremen t, urine [facility] Patient Education [facility] Work Phone: Patient referral [facility] Work Phone: Phencyclidine [Prese nce] in Urine [facility] Troponin I measurement [facility] Work Phone: Urine cannabinoid measurement [facility] Urine culture [facility] Urine opiate measurement [facility] Immunizations Immunization Date Immunization Notes Care Provider Arlin sen 03-30-2016 influenza, injectabl e, quadrivalent, preservative free [facility] 03-30-2016 influenza, seasonal, injectable Dr. Shayna Malhotra Work Phone: [facility] 10-31-2012 influenza, injectabl e, quadrivalent, preservative free [facility] 10-31-2012 influenza, seasonal, injectable Dr. Shayna Malhotra Work Phone: [facility] 06-06-2012 pneumococcal polysaccharide vaccine, [address] Shayna Malhotra Work Phone: [facility] 09-04-2010 pneumococcal polysaccharide vaccine, [address] [facility] Work Phone: Payers Date Payer Category Payer Self-pay [id number] 2021 Medicare [id number] [id number] 2016 Unknown [id number] 2016 Unknown [id number] Unknown [id number] 2.16.8 [id number] Unknown [id number] 2.16.8 40.1.603894.3.579.2.462 Unknown [id number] 2.16.8 40.1.918048.3.579.2.462 Unknown [id number] 2.16.8 40.1.362874.3.579.2.462 Unknown [id number] 2.16.8 40.1.698245.3.579.2.462 Unknown [id number] 2.16.8 40.1.769674.3.579.2.462 Unknown [id number] 2.16.8 40.1.081165.3.579.2.462 Unknown [id number] 2.16.8 40.1.336090.3.579.2.462 Unknown [id number] 2.16.8 40.1.436037.3.579.2.462 Unknown [id number] 2.16.8 40.1.987805.3.579.2.462 Unknown [id number] 2.16.8 40.1.554296.3.579.2.462 Unknown [id number] 2.16.8 40.1.372686.3.579.2.462 Unknown [id number] 2.16.8 40.1.024028.3.579.2.462 Unknown [id number] 2.16.8 40.1.130927.3.579.2.462 Unknown [id number] 2.16.8 40.1.860122.3.579.2.462 Unknown [id number] 2.16.8 40.1.181211.3.579.2.462 Unknown [id number] 2.16.8 40.1.220649.3.579.2.462 Unknown [id number] 2.16.8 40.1.226357.3.579.2.462 Unknown [id number] 2.16.8 40.1.309574.3.579.2.462 Unknown [id number] 2.16.8 40.1.553046.3.579.2.462 Unknown [id number] 2.16.8 40.1.933690.3.579.2.462 Social History Date Type Detail Facility Start: 07-29-2021 End: 10-09-2024 Tobacco smoking status PAIS Ex-smoker [facility] History of tobacco use Cigarette Smoker [facility] Start: 07-29-2021 Cigarettes smoked current (pack per day) - Reported 0.5 [facility] Start: 07-29-2021 Tobacco use and exposure Smokeless tobacco non-user [facility] Start: 09-01-2021 End: 10-02-2021 Alcohol intake Current non-drinker of alcohol (finding) [facility] Start: 1950 Sex Assigned At Not on file [facility] Start: 08-22-2021 End: 10-02-2021 Exposure to SARS-CoV-2 (event) Not sure [facility] Start: 09-20-2021 End: 01-09-2023 Tobacco smoking status PAIS Unknown if ever smoked [facility] Start: 08-02-2017 None [facility] Start: 08-02-2017 Alone [facility] Start: 08-02-2017 Non-smoker [facility] Start: 1950 Sex Assigned At Female [facility] Start: 10-09-2024 Sex Female (finding) [facility] Sex Female [facility] Medical Equipment Procedure Code Equipment Code [...] (Freestyle Lite Strips) strip Start: 03-01-2019 End: 06-20-2022 Blood Sugar Diagnostic (Freestyle Lite Strips) strip Start: 09-14-2017 End: 09-14-2017 Lancets (Freesty le Lancets) 28 gauge misc Start: 03-01-2019 End: 11-23-2021 Goals Date Patient Goal Desired Activity /State Functional Status Date Assessment Result Facility 10-11-2024 Functional status Activity Abili ty With Assist of 2 [facility] Work Phone: 10-10-2024 Functional status Active Range of Motion [facility] Work Phone: 11-24-2021 Functional status Ambulates;Chair [facility] Work Phone: 09-22-2021 Functional status Ambulates [facility] Work Phone: 09-22-2021 Functional status Ambulates [facility] Work Phone: 09-21-2021 Functional status Tolerates Activity Well [facility] Work Phone: Mental Status Date Assessment Result Facility 10-11-2024 Cognitive function Voice/Name [facility] Work Phone: 10-10-2024 Cognitive function Cooperative;Anxious;Ta lkative [facility] Work Phone: 11-24-2021 Cognitive function Voice/Name [facility] Work Phone: 09-22-2021 Cognitive function Voice/Name [facility] Work Phone: 09-20-2021 Cognitive function Level Of Cons ciousness Awake;Alert;Appropriate;Follow s Commands;Drowsy [facility] Work Phone: Clinical Notes 07-29-2021 to 10-11-2024 Note Date & Type Note Facility 10-11-2024 Note [facility] Medical Records Department [address] [place] [address] Discharge Summary 10/11/24 1135 MR#: [id number] Acct: [id number] Name: VIAD NINA Rep #: [id number] : 1950 73 From: Tyrell Page MD PCP: Dr. Shayna Malhotra MD Status:DIS IN Location: MS3 [id number] Providers Date of Admission: 10/09/24 Date of [...] status: with other specified complication Diabetes mellitus continuous churn buttermaker insulin use: with senior living use Qualified Code(s): E11.69 - Type 2 diabetes mellitus with other specified complication; Z79.4 - detention (current) use of insulin Plan 73-year-old female [...] edema. No soft tissue gas. Will consult cryogenics repairer for further opinion. PT and OT and [...] 72.1 H, Lymph % (Auto) 16.3 L, [place] % (Auto) 8.3, Eos % (Auto) 2.5, Baso % (more content not included)... [facility] 10-10-2024 Progress note Note Date/Time October 10, 2024 4:49pm [facility] Medical Records Department [address] [place] [address] Progress Note - Hospitalist 10/10/24 0739 MR#: [id number] Acct: [id number] Name: VIDA NINA Rep #:[id number] : 1950 73 From: Tyrell Resendez PCP: Dr. Shayna Malhotra MD Status:ADM IN Location: [place] [address]-1 Reason for Visit Reason for Visit: Diagnoses [...] Intake and Output for Last 24 Hours 0510/09/24 10/10/24 23:59 23:59 23:59 Intake Total 50 [...] 72.1 H, Lymph % (Auto) 16.3 L, [place] % (Auto) 8.3, Eos % (Auto) 2.5, [...] Clarity Cloudy, Urine pH 5.0, Ur Specific Calvin 1.020, Urine Protein 30 H, Urine Glucose [...] % (Auto) 65.4, Lymph % (Auto) 19.6, [place] % (Auto) 9.1, Eos % (Auto) 5.1 [...] arthritic changes. Soft tissue swelling. Reading Location: [facility] Lower Extremity CT 10/09/24 22:15 IMPRESSION: [...] Hernandez at 2:20 a.m. 10/10/2024 Reading Location: [id number] Physical Exam Narrative Seen and examined. Patient [...] status: with other specified complication Diabetes mellitus senior living insulin use: with senior living use Qualified Code(s): E11.69 - Type 2 [...] edema. No soft tissue gas. Will consult cryogenics repairer for further opinion. PT and OT and [...] 72.1 H, Lymph % (Auto) 16.3 L, [place] % (Auto) 8.3, Eos % (Auto) 2.5, [...] Clarity Cloudy, Urine pH 5.0, Ur Specific Calvin 1.020, Urine Protein 30 H, Urine Glucose [...] % (Auto) 65.4, Lymph % (Auto) 19.6, [place] % (Auto) 9.1, Eos % (Auto) 5.1 [...] 165 H Charges/Coding Visit Charges Inpatient E&M: 13072 Subs Hosp L2 10/10/24 1530 <Electronically signed [...] need inpatient psych unit facility transfer 10/10/24 2030<Electronically signed by Tyrell Page MD> Cosigner Signature (if applicable): cc: ~* Signed [facility] Work Phone: 1(403) 372-816605-07-2025 Progress note [facility] Medical Records Department [address] [place] [address] Progress Note - Hospitalist 10/10/24 0739 MR#: [id number] Acct: [id number] Name: VIDA NINA Rep #:[id number] : 1950 73 From: Tyrell Resendez PCP: Dr. 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 Soft tissue swelling. Reading Location: [facility] Lower Extremity CT 10/09/24 22:15 IMPRESSION: [...] Hernandez at 2:20 a.m. 10/10/2024 Reading Location: [id number] Physical Exam Narrative Seen and examined. 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 No soft tissue gas. Will consult cryogenics repairer for further opinion. PT and OT and [...] 72.1 H, Lymph % (Auto) 16.3 L, [place] % (Auto) 8.3, Eos % (Auto) 2.5, [...] Clarity Cloudy, Urine pH 5.0, Ur Specific Calvin 1.020, Urine Protein 30 H, Urine Glucose [...] % (Auto) 65.4, Lymph % (Auto) 19.6, [place] % (Auto) 9.1, Eos % (Auto) 5.1 [...] 165 H Charges/Coding Visit Charges Inpatient E&M: 22252 Subs Hosp L2 10/10/24 1530 Cosigner Signature (if applicable): CC: ~ Signed ADDENDUM by Dr. Tyrell Page MD on 10/10/24 at 1649 Addendum Patient was seen and examined in afternoon about 4 PM. She is having visual hallucination and talking to invisible person, Cat Liam, agitated, standingup on the window. Disorganized behavior [...] Cosigner Signature (if applicable): cc: ~* Signed [facility]05-07-2025 History and physical note Author Missael Lomeli [facility] Note Date/Time October 10, 2024 6:53am [facility] Medical Records Department [address] [place] [address] H&P Exam - Hospitalist 10/09/242118 MR#: [id number] Acct: [id number] Name: VIDA NINA Rep #:[id number] : 1950 73 From: Missael Joiner DO PCP: Dr. Shayna Malhotra MD Status:ADM IN Location: [facility] - General General Date of [...] is [facility] presents to [facility] ER complaining of worsening Left heel [...] skin folds and extremely poor hygiene with PATIENT ATTENDANT having social work consulted and patient felt [...] is expected to extend beyond 2 midnights. [facility] Medical History Obesity Anxiety Cancer Anxiety [...] acetonide 0.1 % 1 applic topical Q12H UT N PRN Rash 09/20/21 Unknown History topical [...] D #0 grams 11/24/21 Unknown Rx powder ([facility]) quetiapine 100 mg tablet 300 mg (3 [...] (Auto) 72.1 H, Lymph % (Auto) 16.3 L,Breathitt % (Auto) 8.3, Eos % (Auto) 2.5, [...] Clarity Cloudy, Urine pH 5.0, Ur Specific Calvin 1.020, Urine Protein 30 H, Urine Glucose [...] changes. Soft tissue swelling. Reading Location: [facility] Imaging Services [address] [place] [address] Extremity Lower without Contra MR#: [id number] Acct: [id number] Name: VIDA NINA Rep #: [id number] : 1950 F 73 From: Saul Sanchez MD PCP: Dr. Shayna Malhotra MD Status: ADM IN Study: Extremity Lower without Contra Date of Exam: 10/09/24 Exam# [id number] Ordering Dr: Missael Hernandez DO PROCEDURE: EXTREMITY [...] Hernandez at 2:20 a.m. 10/10/2024 Reading Location: [id number] CC: Dr. Missael Hernandez, DO; Dr. Shayna Malhotra MD ~ Hand Spring Repairer Helper: Signed Assessment & Plan Assessment/Plan (1) Acute cystitis with hematuria: (2) Neuropathic pain of foot: (3) Poor hygiene: (4) Unable to care for self: (5) Bipolar 1 disorder: (6) Morbid obesity with BMI of 45.0-49.9, adult: (7) DM2 (diabetes mellitus, type 2): QUALIFIERS: Diabetes mellitus complication status: with other specified complication Diabetes mellitus senior living insulin use: with continuous churn buttermaker use Qualified Code(s): E11.69 - Type 2 diabetes mellitus with other specified complication; Z79.4 - detention (current) use of insulin PLAN: Plan 1. Acute Cystitis; with microscopic hematuria in the setting of known frequent UTIs - Admit to general medical floor. Continue empiric IV ceftriaxone and await culture and sensitivity data. Give acetaminophen as needed for [id number] (level 1- 5/10) pain or fever. Give [...] 75 minutes. Charges/Coding Visit Charges Inpatient E&M: 13219 Init Hosp L3 10/10/24 0653 <Electronically signed by Missael Hernandez DO> Cosigner Signature (if applicable): CC: Dr. Missael Hernandez DO; Dr. Shayna Malhotra MD~ Signed [facility] Work Phone: 1(146) 583-613605-07-2025 History and physical note [facility] Medical Records Department [address] [place] [address] H&P Exam - Hospitalist 10/09/242118 MR#: [id number] Acct: [id number] Name: VIDA NINA Rep #:[id number] : 1950 73 From: Missael oJiner DO PCP: Dr. Shayna Malhotra MD Status:ADM IN Location: 3 NN582-6 [facility] - General General Date of [...] is currently residing in assisted living at [facility] presents to [facility] ER complaining of worsening Leftheel pain [...] skin folds and extremely poor hygiene with PATIENT ATTENDANT having social work consulted and patient felt [...] is expected to extend beyond 2 midnights. [facility] Medical History Obesity Anxiety Cancer Anxiety [...] acetonide 0.1 % 1 applic topical Q12H UT N PRN Rash 09/20/21 Unknown History topical [...] D #0 grams 11/24/21 Unknown Rx powder ([facility]) quetiapine 100 mg tablet [...] (Auto) 72.1 H, Lymph % (Auto) 16.3 L,Breathitt % (Auto) 8.3, Eos % (Auto) 2.5, [...] Globulin 4.6 H, Albumin/Globulin Ratio 0.8 L 05/06/25 20:10: Urine Color Yellow, Urine Clarity Cloudy, Urine pH 5.0, Ur Specific Calvin 1.020, Urine Protein 30 H, Urine Glucose [...] changes. Soft tissue swelling. Reading Location: [facility] Imaging Services [address] [place] [address] Extremity Lower without Contra MR#: [id number] Acct: [id number] Name: VIDA NINA Rep #: [id number] : 1950 F 73 From: Saul Sanchez MD PCP: Dr. Shayna Malhotra MD Status: ADM IN Study: Extremity Lower without Contra Date of Exam: 10/09/24 Exam# [id number] Ordering Dr: Missael Hernandez DO PROCEDURE: EXTREMITY [...] Hernandez at 2:20 a.m. 10/10/2024 Reading Location: [facility] CC: Dr. Missael Hernandez DO; Dr. 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 Acute Cystitis; with microscopic hematuria in the setting of known frequent UTIs - Admit to general medical floor. Continue empiric IV ceftriaxone and await culture and sensitivity data. Give acetaminophen as needed for [id number] (level 1-5/10) pain or fever. Give oxycodone [...] patient Unable to Care for Herself at assistedving after the recent incarceration of her son [...] 75 minutes. Charges/Coding Visit Charges Inpatient E&M: 17433 Init Hosp L3 10/10/24 0653 Cosigner Signature (if applicable): CC: Dr. Missael Hernandez DO; Dr. Shayna Malhotra MD~ Signed [facility]05-07-2025 Radiology Diagnostic study note [facility] Imaging Services [address] [place], [place] [address] Extremity Lower without Contra MR#: [id number] Acct: [id number] Name: VIDA NINA Rep #: [id number] : 1950 F 73 From: Daniel Sanchez MD PCP: Dr. Shayna Malhotra MD Status: ADM IN Study:Extremity Lower without Contra Date of Exam: 10/09/24 Exam# [id number] Ordering Dr: Missael Piña DO PROCEDURE: EXTREMITY [...] Hernandez at 2:20 a.m. 10/10/2024 Reading Location: [id number] CC: Dr. Missael Hernandez DO; Dr. Shayna Malhotra MD ~ Hand Spring Repairer Helper: Signed [facility]05-06-2025 Discharge summary Author Dany Richardson [facility] Note Date/Time October 09, 2024 9:22pm [facility] Medical Records Department [address] [place] [address] Emergency Department Summary 10/09/24 MR#: [id number] Acct: [id number] Name: VIDA NINA Rep #:[id number] : 1950 73 From: Dany Richardson MD PCP: Dr. Shayna Malhotra MD Status:REG ER Location: ED HPI History of Present Illness Chief Complaint: Lower Extremity Injury Narrative Narrative: 73-year-old female states that she had pins placed in her left foot approximately 15 years ago [place] after breaking her heel. [facility]. She states for the last 2 weeks she has been having increasing foot pain. She states that on Tuesday, probably of the last week, she had x-raysobtained at the [facility]. She went and saw Dr. Shayna Malhotra on Tuesday, but he did not have the x-ray results. She states that she is having a lot of pain in her left heel that is worse with weightbearing and walking and palpation. She states that it feels as if she is having a baby out of her left heel. [facility] Medical History Obesity Anxiety Cancer Anxiety [...] acetonide 0.1 % 1 applic topical Q12H UT N PRN Rash 09/20/21 Unknown History topical [...] D #0 grams 11/24/21 Unknown Rx powder ([facility]) quetiapine 100 mg tablet 300 mg (3 [...] nonspecific foot pain. She was given 1 [place] for analgesia here, and x- rays were [...] plan was to discharge her back to [facility], however I was approached by the [...] 72.1 H Lymph % (Auto) 16.3 L [place] % (Auto) 8.3 Eos % (Auto) 2.5 [...] Clarity Cloudy Urine pH 5.0 Ur Specific Calvin 1.020 Urine Protein 30 H Urine Glucose [...] self, UTI (urinary tract infection) Disposition Disposition: [facility] What to do if you have Problems For any increased pain, shortness of breath, bleeding, nausea or vomiting, chestpain, or any unexpected problems, contact your Primary Care Provider. Call [facility] ([phone]) or report to the closest Emergency Room. Call 911 if necessary. 10/09/242121 <Electronically signed by Dany Richardson MD> Cosigner Signature (if applicable): CC: Dr. Shayna Malhotra MD ~ Signed [facility] Work Phone: [phone]) 494-168905-06-2025 Discharge summary [facility] Medical Records Department [address] [place] [address] Emergency Department Summary 10/09/24 MR#: [id number] Acct: [id number] Name: VIDA NINA Rep #:[id number] : 1950 73 From: Dany Richardson MD PCP: Dr. Shayna Malhotra MD Status:[facility] ER Location: ED HPI History of Present Illness Chief Complaint: Lower Extremity Injury Narrative Narrative: 73-year-old female states that she had pins placed in her left foot approximately 15 years ago [place] after breaking her heel. [facility]. She states for the last 2 weeks she has been having increasing foot pain. She states that on Tuesday, probably of the last week, she had x-raysobtained at the [facility]. She went and saw Dr. Shayna Malhotra on Tuesday, but he did not have thex-ray results. She states that she is having a lot of pain in her left heel that is worse with weightbearing and walking and palpation. She states that it feels as if she is having a baby out of her left heel. [facility] Medical History Obesity Anxiety Cancer Anxiety [...] acetonide 0.1 % 1 applic topical Q12H UT N PRN Rash 09/20/21 Unknown History topical [...] D #0 grams 11/24/21 Unknown Rx powder ([facility]) quetiapine 100 mg tablet 300 mg (3 [...] nonspecific foot pain. She was given 1 [place] for analgesia here, and x-rays were obtained of the left footin 3 views. On my independent interpretation of her x-rays, there are postsurgical changes including hardware,but no evidence of a periprosthetic fracture, no noted loosening of hardware. There are arthritic changes as well. I reviewed the radiology report which confirms my independent interpretation. Initially my plan was to discharge her back to [facility], however I was approached by the [...] 72.1 H Lymph % (Auto) 16.3 L [place] % (Auto) 8.3 Eos % (Auto) 2.5 [...] Clarity Cloudy Urine pH 5.0 Ur Specific Calvin 1.020 Urine Protein 30 H Urine Glucose [...] tract infection) Disposition Disposition: [facility] What to do if you have Problems For any increased pain, shortness of breath, bleeding, nausea or vomiting, chestpain, or any unexpected problems, contact your Primary Care Provider. Call [facility] ([phone]) or report tothe closest Emergency Room. Call 911 if necessary. 10/09/242121 Cosigner Signature (if applicable): CC: Dr. Shayna Malhotra MD ~ Signed [facility]05-06-2025 Radiology Diagnostic study note [facility] Imaging Services [address] [place] [address] Foot min 3 Views MR#: [id number] Acct: [id number] Name: VIDA NINA Rep #: [id number] : 1950 F 73 From: Katarina Jiménez MD PCP: Dr. Shayna Malhotra MD Status: REG ER Study:Foot min 3 Views Date of Exam: 11/28 Exam# [id number] Ordering Dr: Dany Richardson MD EXAM: LEFT [...] Richardson MD; Dr. Shayna Malhotra MD ~ Hand Spring Repairer Helper: Signed [facility]01-29-2025 Evaluation note* Diagnosis Onset Date Resolution [...] 9:56pm Unable to care for self acute 2024 9:56pm UTI (urinary tract infection) acute October 09, 2024 9: 56pm DM2 (diabetes mellitus, type 2) chronic October 09, 2024 9: 56pm [facility] Work Phone: [phone]) 634-266004-29-2022 NoteHNO ID: [id number] Author: Jennifer Cuevas MD Service: ? Author Type: Physician Type: Progress Notes Filed: 12/01/2021 8:04 AM Note Text: Gynecologic Oncology [facility] Follow up visit Date of service: 10/02/2021 PROBLEM/CC: Vida Nina presents for a post-op visit. SURGICAL PATHOLOGY [[id number]] Collected: 09/07/21 1104 Order Status: Completed Specimen: Tissue from UTERUS, CERVIX, BILATERAL FALLOPIAN TUBES AND BILATERAL OVARIES Updated: 09/11/21 1319 Case Report -- Surgical Pathology Report ? Case: [id number] ? Authorizing Provider: ?Jennifer Cuevas MD ? [...] A11 and A16 were reviewed at the [facility] gynecologic pathology consensus conference via telepathology on 09/09/20[address] Lupe Younger and Andra Franco agree with the diagnosis of acute salpingitis. ? Laboratory Developed Test (LDT) Disclaimer: Performance characteristics of immunohistochemical, immunofluorescent and chromogenic in-situ hybridization tests have been determined by the performing laboratory within [facility]?s [facility]en [facility] Pathology and Laboratory Medicine [place] ([facility], [facility], [facility] or [facility]) in a manner consistent with CLIA [...] and ( (more content not included)...[facility]04-29-2022 History of Present illness Narrative* Jennifer Cuevas MD - 10/02/2021 1:00 PM EDT Gynecologic Oncology [facility] Follow up visit Date of service: 10/02/2021 PROBLEM/CC: Vida Nina presents for a post-op visit. SURGICAL PATHOLOGY [[id number]] Collected: 09/07/21 1104 Order Status: Completed Specimen: Tissue from UTERUS, CERVIX, BILATERAL FALLOPIAN TUBES AND BILATERAL OVARIES Updated: 09/11/21 1319 Case Report -- Surgical Pathology Report Case: [id number] Authorizing Provider: Jennifer Cuevas MD Collected: 09/07/2021 11:04 AM Ordering Location: [facility] OR Received: 09/07/2021 11:12 AM Pathologist: [...] A11 and A16 were reviewed at the [facility] gynecologic pathology consensus conference via telepathology on 09/09/20[address] Lupe Younger and Adnra Franco agree with the diagnosis of acute salpingitis. Laboratory Developed Test (LDT) Disclaimer: Performance characteristics of immunohistochemical, immunofluorescent and chromogenic in-situ hybridization tests have been determined by the performing laboratory within [facility] s [facility] Pathology and Laboratory Medicine [place] ([facility], [facility], [facility] or [facility]) in a manner consistent with CLIA [...] fibrous ovarian parenchyma with no lesions identified. Command Center Analyst sections are submitted as follows: A1-anterior cervix [...] A 17-right ovary Gross examination performed at [facility], [address] [place] [address] CLIA#[id number] OLS September 08, 2021 10:33 AM Intraoperative [...] many years since she has seen a lathe mechanic, maybe > 10 years. Reports normal pap [...] Her incisions have healed well. Abdomen non-tender. Director Visual for exam: Sherrie RESULTS: 07/26/21: ULTRASOUND The [...] without Cont on 08-07-2021 Abdomen/Pelvis without Cont [facility] Imaging Services [address] [place] [address] Abdomen/Pelvis without Cont MR#: [id number] Acct: [id number] Name: VIDA NINA Rep #: [id number] : 1950 F 70 From: Power Lopez MD PCP: Dr. Shayna Malhotra MD Status: REG CLI Study: Abdomen/Pelvis without Cont Date of Exam: 09/25 Exam# [id number] Ordering Dr: Saad Villagomez MD STUDY: CT [...] Paper guidelines (Godoy-Parrish, et al. JACR 2017; 14(8):9569-3569) suggest no imaging follow-up is necessary. ACR White Paper guidelines (Godoy-Parrish, et al. JACR 2017; 14(8):3647-7457) suggest no imaging follow-up is necessary. Consider [...] diagnosis with patient and caregiver (Arianna from [facility]). Discussed recommendations for treatment including TLH-BSO, [...] deemed medically necessary. Reviewed prior records from [facility] and Dr. Villagomez (medical oncologist) office. Requested images from CT A/P and ultrasound to be uploaded for review. Noted elevated CA 125. Plan to proceed with surgery in September. Will need preoperative anesthesia appointment. Contact information for Jose Rafael Resendiz: nurse line [phone]; hotel front desk agent [phone]. Documentation from my notes of previous visit [...] arrange referral to radiation treatment center in [place], [place] five minutes from where she lives. [...] the presence of Jennifer Cuevas MD. Electronically signed:Charley DavidFrannie weeks, October 04, 2021 6:40 AM I agree with the Chief Complaint, ROS, and Past Histories independently gathered by the clinical lab support technician and the remaining scribed note accurately describes my personal service to the patient. [facility] Nurse Note* Moriah Aldridge RN - 10/02/2021 12:50 PM EDT Patient arrived amb A&Ox4 in [facility] for post op visit. Patient admits to pain in abd and lower back resolved since surgery. Pt denies any new concerns, today. Pt here with Marguerite, friend. Enc and support provided. Moriah Aldridge RN documented in this encounterAd[facility]04-[facility]-2022 Miscellaneous Notes* Telephone Encounter - Jeffrey Ferris - 09/21/2021 12:10 PM EDT Spoke to Nurse Bernadine from [facility] stated that the patient is in the hospital and she will call when the patient comes out. So 09/22/21 appt in this office with Dr. Cuevas has been cancelled. Jeffrey Ferris 09/21/21 documented in this encounterAd[facility]04-[facility]-2022 Miscellaneous Notes* Telephone Encounter - Taniya Balderas APRN.MICHELLE - 09/10/2021 8:25 AM EDT Called [facility] left message on nurse line [...] to. meds that are susceptible are iv. [facility] can recheck urine if still + then would need to get ID involved verbal instructions per Dr julieth Balderas APRN.POWER PLANT OPERATIONS MANAGER documented in this encounterAdams [facility]04-06-2022 Miscellaneous Notes* Telephone Encounter - Summer Turcios RN - 09/09/2021 2:50 PM EDT [place] from [facility] returned call to [...] RN via confidential e-mail) Attempted to call rFanklin at [facility] to review above message, no answer. Left message on voicemailto return call. Summer Turcios RN * Telephone Encounter - Summer Turcios RN - 09/09/2021 1:58 PM EDT Franklin, nursing center tutor at [facility] called stated, "one of patient's lap [...] e-mail). Summer Turcios RN documented in this encounterAdams [facility]04-[facility]-2022 NoteHNO ID: [id number] Author: Sam Naidu DO Service: Gynecology Oncology [...] 165.1 cm (5' 5") I/O: Date 09/07/21 07 - 09/08/21 0659 Shift 4479-9639 9717-6797 0667-4017 24 Hour Total PO 360 360 PO 360 360 IV 6760 525 3820 Volume (mL) (ceFAZolin 3 g in D5W 100 mL (ANCEF)) 100 100 Volume (mL) (NaCl 0.9% iv infusion) 500 500 Volume (mL) (lactated ringers iv infusion) 1300 1300 Volume (mL) (lactated ringers iv infusion) 300 300 Shift Total 4781 690 6431 Urine 1000 1000 Void (ml) 1000 1000 [...] POSIFLUSH) 2-10 mL INTRAVENOUS q 12 H Samrobby Naidu, DO 10 mL at 09/07/21 1631 - polyethylene glycol 3350 17 g packet (MIRALAX, GLYCOLAX) 17 g ORAL DAILY Sam Naidu, DO 17 g at 09/07/21 1630 - enoxaparin 40 mg injection (LOVENOX) 40 mg SUBCUTANEOUS q 24 HR Samrobby Naidu, DO - NaCl 0.9% iv flush [...] 154 VTE RISK CATEGORY: SURGICAL HIGH RISK ([place]) Active VTE Medication Orders: Anticoagulant AND Antiplatelet Medications (From admission, onward) Start Dose Route Frequency Last Action Ordered Stop 09/08/21 0900 enoxaparin 40 mg injection (LOVENOX) (Surgical Risk Categories) 40 mg SUBCUTANEOUS EVERY 24 HOURS Ordered 09/07/211541 -- Active VTE Prophylaxis Orders: 09/07/21 1545 PNEUMATIC COMPRESSION STOCKINGS ([place]) 09/07/21 154 ACTIVITY - MOBILIZE PATIENT ([place], [place]) VTE Prophylaxis: VTE prophylaxis appropriate Assessment/Plan Vida Nina is a 70 year old year old female POD#1 s/p EUA, TLH-BSO for endometrial cancer #Postoperative care - VSSAF - VTE (more content not included)...[facility]04-04-2022 Note HNO ID: [id number] Author: Hieu Raymond APRN.PLANER CHAIN OFFBEARER Service: Anesthesiology Author Type: Nurse Fence Gate Assembler Type: Anesthesia Procedure Notes Filed: 09/07/2021 9:28 AM Note Text: ANESTHESIOLOGY PROCEDURE NOTE Airway General Information Procedure Start Time/Medication Administration: 09/07/2021 8:29 AM Patient location during procedure: OR Timeout Performed Pre-procedure: timeout performed Consent Obtained: Yes Patient identity confirmed: arm band Staffing PLANER CHAIN OFFBEARER: Hieu Raymond APRN.PLANER CHAIN OFFBEARER Performed by: ANURAG Indications and Patient Condition Preoxygenated: yes Patient position: sniffing, ramp and reverse Trendelenburg Manual In-Line Stabilization: No Difficult Mask: No Indications for airway management: anesthesia anesthesia circuit Method: modified rapid sequence Cricoid Pressure: Yes Airway Accessory: oral airway Final Airway Details Final airway type: endotracheal airway Final Endotracheal Airway: ETT Cuffed: yes Successful intubation technique: video laryngoscopy Devices used: HEALBE Endotracheal tube insertion site: oral Blade: Osman [...] intubation: no Difficult airway SIGNATURE: Hieu Raymond APRN.PLANER CHAIN OFFBEARER PATIENT NAME: Vida Nina DATE: September 07, 2021 TIME: 9:25 AM CSN: [id number] [facility]03-29-2022 Instructions * Patient Instructions* Naila Barrientos APRN.POWER PLANT OPERATIONS MANAGER - 09/01/2021 3:11 PM EDT PATIENT PREOPERATIVE INSTRUCTIONS Your surgeon has scheduled for your procedure at this surgery center: Dr. Cuevas has scheduled you for your procedure at this surgery center [facility]: [phone], [address] [place], [place] [address] Enter the hospital through the main entrance and proceed directly to the Surgery Welcome Center. Asyou enter the Surgery Welcome Center and sign in with the legal receptionist, we may ask for your photo [...] If you are having surgery at the [facility] and [facility], please bring your glucometer Pain Medications: [...] surgery. - YOU MUST HAVE A RESPONSIBLE WHEAT CLEANER TAKE YOU HOME. A GOVERNMENT RELATIONS DIRECTOR, CAB OR UBER WHEAT CLEANER CANNOT BE [place] RESPONSIBLE WHEAT CLEANER. - We recommend that a responsible person [...] COVID-19 positive. If visitors do not follow [facility] masking guidelines, caregivers can ask [facility] to [facility] and restrict their visitation privileges. For support, contact Elizabeth at [phone] or [email or web address]. The visitor will be allowed to [...] and will then instruct the visitor for steel pickler directions Visitors who have tested positive for [...] A Guide of Mind Body Techniques ([place], [place];[employer] Press: Fourth Edition) 2011 Naila Barrientos APRN.CNP 09/01/21 documented in this encounterAdams [facility] Hospital03-29-2022 History and physical note * Naila [...] with Dr. Cuevas. Surgery will be at [facility] OR Scheduled as an TBA Have you been in contact with someone with known coronavirus/Covid 19? no Have you had surgery or pre testing at [facility] in the past 3 years? no [...] Negative for: AICD/PPM, chest pain, CHF, recent [place] and open heart surgery. GI: Positive for: abdominal pain Negative for: nausea and vomiting. : No history of dysuria, frequency or incontinence, stones or chronic kidney disease. No difficulty urinating, nocturia > 1 time per night or hematuria. 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 [...] or any previous visit (from the past 91107 hour(s)). Assessment No problem-specific Assessment & Plan [...] slightly elevated. Treated with oral medications. No solution sales senior executive Hyperlipidemia- treated with a statin Pertinent cardiac [...] Initiated: Ordered by surgeon- none Ordered by mine safety director - cbc, T*S, con abo Instructions Given to Patient: Instructions located in the after visit summary. Patient given verbal and written preop instructions and voices comprehension and compliance. SIGNATURE: Naila Barrientos APRN.CNP PATIENT NAME: Vida Nina DATE: September 01, 2021 TIME: 2:53 PM PAGER/CONTACT #: documented in this encounterAdams [facility] Hospital03-18-2022 NoteHNO ID: [id number] Author: Jennifer Cuevas MD Service: ? Author Type: Physician Type: Progress Notes Filed: 08/26/2021 1:21 PM Note Text: Gynecologic Oncology [facility] General Consult Date of service: 08/21/2021 PCP: [...] many years since she has seen a lathe mechanic, maybe > 10 years. 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 Age at Menarche: ? Age at First : ? Age at Menopause: ? 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 Sexual Activity: Not Asked; [...] by mouth (more content not included)...[facility] 07-29-2021 NoteHNO ID: [id number] Author: Krunal Erazo MD Service: ? Author [...] many years since she has seen a lathe mechanic, maybe > 10 years. 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 Director Of Early Childhood Education History LMP: Postmenopausal Age at Menarche: Age at First : Age at Menopause: Director Of Early Childhood Education History Comments: Sexual Activity: Not Asked; No [...] external genitalia atrophic, normal Bartholin's glands, urethra, [place]'s glands, no vulvar lesions, no cervical lesions, good vaginal support, normal appearing perineal body and perianal region, scant (more content not included)...[facility] Diagnosis Pre-op testing- Primary Preoperative examination, unspecified Endometrial cancer (HCC) Malignant neoplasm of corpus uteri, except isthmus Mixed hyperlipidemia 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, with long-term current use of insulin (HCC) Primary hypertension Unspecified essential hypertension Endometrial cancer (HCC) Malignant neoplasm of corpus uteri, except isthmus documented in this encounter [facility] note* Diagnosis Onset Date Resolution Status Uterine mass acute Endometrial adenocarcinoma a cute Debility acute Pulmonary embolism acute [facility] Work Phone: Evaluation note* Diagnosis Onset Date Resolution Status Uterine mass acute Endometrial adenocarcinoma a cute Debility acute Pulmonary embolism acute Debility acute Elevated troponin I level ac mark Lactic acidosis acute DM2 (diabetes mellitus, type 2) chronic [facility] Work Phone: Evaluation note* Diagnosis Endometrial cancer (HCC)- Primary Malignant neoplasm of corpus uteri, except isthmus documented in this encounter [facility] note* Diagnosis Onset Date Resolution Status Debility acute Pulmonary embolism acute Debility acute DM2 (diabetes mellitus, type 2) chronic Elevated troponin I level re solved Lactic acidosis resolved [facility] Work Phone: Evaluation noteNo assessment information available [facility] Work Phone: Evaluation note* Diagnosis Onset Date Resolution Status Debility acute Endometrial adenocarcinoma a cute Former smoker acute History of seizures acute Pulmonary embolism acute Vitamin D deficiency acute Bipolar disorder chronic DM2 (diabetes mellitus, type 2) chronic Type 1 diabetes mellitus chr onic [facility] Work Phone: Evaluation note* Diagnosis Onset Date Resolution Status Debility acute Vitamin D deficiency acute Bipolar disorder chronic Depression chronic DM2 (diabetes mellitus, type 2) chronic [facility] Work Phone: [facility] Work Phone[facility] Work Phone: Hospital Discharge instructions Additional [...] care physician for further outpatient evaluation and management.[facility] Work Phone: Reason for referral (narrative)No reason for referral information availableWNewark Hospital Work Phone: Summary Purpose Family History [...] FoundDocuments on File Type Date Recorded Patient Command Center Analyst Expl anation Advance Directive(s) 09/07/2021 6:14 AM Advance Directive Response Recorded Date/ Time Living Will No September 20, 2021 7:30am Power of Rubber Cutter And Shape Carver No September 20 7:30am Advance Directive Response Recorded Date/ Time Living Will No September 20, 2021 12:38pm Power of Rubber Cutter And Shape Carver No September 20 12:38pm Advance Directive Response Recorded Date/ Time Name of Medical Power of Rubber Cutter And Shape Carver TODD November 22, 2021 1:03pm Living Will Yes November 22, 2021 1:03pm Power of Rubber Cutter And Shape Carver Yes November 22 1:03pm Advance Directive Response Recorded Date/ Time Name of Medical Power of Rubber Cutter And Shape Carver Todd Nina November 22, 2021 5:55pm Living Will No November 22, 2021 5:55pm Power of Rubber Cutter And Shape Carver Yes November 22 5:55pm Advance Directive Response Recorded Date/ Time Living Will No April 13 10:27am Power of Rubber Cutter And Shape Carver Yes April 13, 2022 10:27am Advance Directive Response Recorded Date/ Time Living Will No April 13 11:27am Power of [employer] Yes April 13, 2022 11:27am Advance Directive Response Recorded Date/ Time Living Will No January 09, 2023 5:18pm Power of [employer] No January 09 5:18pm Advance Directive Response Recorded Date/ Time Living Will No January 09, 2023 4:18pm Power of [employer] No January 09 4:18pm Advance Directive Response Recorded Date/ Time Do you have a Healthcare Power of [employer]? Yes October 09, 2024 5:45pm Advance Directive Response Recorded Date/ Time Do you have a Healthcare Power of [employer]? No October 09, 2024 11:07pm Health Concerns Infection Onset Date Last Indicated Resolved Time COVID-19 Rule-Out 09/07/2021 09/07/2021 Chief Complaint and Reason for Visit Chief Complaint LONG-TERM LABOWRK LONG-TERM LABWORK LONG-TERM LABWORK VAGINAL BLEEDING NEW-CERVICAL MASS MED ONC CERVICAL MASS 2WKS NO LABS REVIEW CT/PATH [facility] PE, FAILURE TO THRIVE PE, FAILURE TO THRIVE Reason for Visit Uterine mass Endometrial adenocarcinoma Debility Pulmonary embolism Chief Complaint LONG-TERM LABOWRK LONG-TERM LABWORK LONG-TERM LABWORK VAGINAL BLEEDING NEW-CERVICAL MASS MED ONC CERVICAL MASS 2WKS NO LABS REVIEW CT/PATH FRO [facility] PE, FAILURE TO THRIVE PE, FAILURE TO THRIVE PE, FAILURE TO THRIVE PE, FAILURE TO THRIVE Reason for Visit Uterine mass Endometrial adenocarcinoma Debility Pulmonary embolism Chief Complaint LONG-TERM LABWORK LONG-TERM LABWORK VAGINAL BLEEDING NEW-CERVICAL MASS MED ONC CERVICAL MASS 2WKS NO LABS REVIEW CT/PATH FRO [facility] LONG-TERM LABWORK PE, FAILURE TO THRIVE PE, FAILURE TO THRIVE PE, FAILURE TO THRIVE PE, FAILURE TO THRIVE LONG-TERM LABWORK Reason for Visit Uterine mass Endometrial adenocarcinoma Debility Pulmonary embolism Chief Complaint VAGINAL BLEEDING NEW-CERVICAL MASS MED ONC CERVICAL MASS 2WKS NO LABS REVIEW CT/PATH FRO [facility] LONG-TERM LABWORK PE, FAILURE TO THRIVE PE, FAILURE TO THRIVE PE, FAILURE TO THRIVE PE, FAILURE TO THRIVE LONG-TERM LABWORK LONG-TERM LABWORK Reason for Visit Uterine mass Endometrial adenocarcinoma Debility Pulmonary embolism Chief Complaint VAGINAL BLEEDING NEW-CERVICAL MASS MED ONC CERVICAL MASS 2WKS NO LABS REVIEW CT/PATH [facility]O [facility] LONG-TERM LABWORK PE, FAILURE TO THRIVE PE, FAILURE TO THRIVE PE, FAILURE TO THRIVE PE, FAILURE TO THRIVE LONG-TERM LABWORK LONG-TERM LABWORK DEBILITY/KAYLA Reason for Visit Uterine mass Endometrial adenocarcinoma Debility Pulmonary embolism Chief Complaint NEW-CERVICAL MASS MED ONC CERVICAL MASS 2WKS NO LABS REVIEW CT/PATH [facility] LONG-TERM LABWORK PE, FAILURE TO THRIVE PE, FAILURE TO THRIVE PE, FAILURE TO THRIVE PE, FAILURE TO THRIVE LONG-TERM LABWORK LONG-TERM LABWORK DEBILITY/KAYLA DEBILITY/KAYLA DEBILITY/AKYLA DEBILITY/KAYLA Reason for Visit Uterine mass Endometrial adenocarcinoma Debility Pulmonary embolism Debility Elevated troponin I level Lactic acidosis DM2 (diabetes mellitus, type 2) Chief Complaint LONG-TERM LABWORK PE, FAILURE TO THRIVE PE, FAILURE TO THRIVE PE, FAILURE TO THRIVE PE, FAILURE TO THRIVE LONG-TERM LABWORK LONG-TERM LABWORK DEBILITY/KAYLA DEBILITY/KAYLA DEBILITY/KAYLA DEBILITY/KAYLA DEBILITY/KAYLA LONG-TERM LABWORK LONG-TERM LABWORK LONG-TERM LAB WORK Reason for Visit Debility Pulmonary embolism Debility DM2 (diabetes mellitus, type 2) Elevated troponin I level Lactic acidosis Chief Complaint LONG-TERM LABWORK LONG-TERM LAB WORK Chief Complaint LONG-TERM LAB WOR K 1 Y FU LONG-TERM LAB WORK Reason for Visit Debility Endometrial adenocarcinoma Former smoker History of seizures Pulmonary embolism Vitamin D deficiency Bipolar disorder DM2 (diabetes mellitus, type 2) Type 1 diabetes mellitus Chief Complaint LONG-TERM LAB WOR K 1 Y FU LONG-TERM LAB WORK LONG-TERM LAB WORK Reason for Visit Debility Endometrial adenocarcinoma Former smoker History of seizures Pulmonary embolism Vitamin D deficiency Bipolar disorder DM2 (diabetes mellitus, type 2) Type 1 diabetes mellitus Chief Complaint 1 Y FU LONG-TERM LAB WORK LONG-TERM LAB WORK LONG-TERM LABWORK Reason for Visit Debility Endometrial adenocarcinoma Former smoker History of seizures Pulmonary embolism Vitamin D deficiency Bipolar disorder DM2 (diabetes mellitus, type 2) Type 1 diabetes mellitus Chief Complaint LONG-TERM LAB WOR K 6 M FU gen illness Reason for Visit Debility Vitamin D deficiency Bipolar disorder Depression DM2 (diabetes mellitus, type 2) Chief Complaint LONG-TERM LABWORK LONG-TERM LABWORK Chief Complaint Admit Date LT Ankle Pain July 04, 2024 1 2:57pm LONG-TERM LAB WORK July 09, 2024 4:00am ACUTE [...] Ankle Pain July 04, 2024 1 2:57pm LONG-TERM LAB WORK July 09, 2024 4:00am ACUTE CYSTITIS, NEUROPATHIC PAIN OF LEFT FOOT AND October 09, 2024 9:56pm ACUTE CYSTITIS, NEUROPATHIC PAIN OF LEFT FOOT AND October 10, 2024 7:39am Chief Complaint Admit Date LABOWRK November 26, 2024 5:00 am LONG-TERM LAB WORK December 04, 2024 4:0 0am LABOWRK January 21, 2025 5: 00am Additional Source Comments INFORMATION SOURCE (unrecogn ized section and content) DATE CREATED AUTHOR 08/31/2021 [facility] DATE CREATED AUTHOR AUTHOR'S ORGANIZ ATION 12/01/2021 [facility] DATE CREATED AUTHOR AUTHOR'S ORGANIZ ATION 04/17/2025 [facility] Source Comments (unrecognize d section and content) In the event this informatio n is protected by the Federal Confidentiality of Alcohol and Drug Abuse Patient Records regulations: The Federal rules restrict any use of the information to criminally investigate or prosecute any alcohol or drug abuse patient.[facility] the event this information is protected by the Federal Confidentiality of Alcohol and Drug Abuse Patient Records regulations: The Federal rules restrict any use of the information to criminally investigate or prosecute any alcohol or drug abuse patient[facility] the event this information is protected by the Federal Confidentiality of Alcohol and Drug Abuse Patient Records regulations: The Federal rules restrict any use of the information to criminally investigate or prosecute any alcohol or drug abuse patient.[facility] the event this information is protected by the Federal Confidentiality of Alcohol and Drug Abuse Patient Records regulations: The Federal rules restrict any use of the information to criminally investigate or prosecute any alcohol or drug abuse patient.[facility] the event this information is protected by the Federal Confidentiality of Alcohol and Drug Abuse Patient Records regulations: The Federal rules restrict any use of the information to criminally investigate or prosecute any alcohol or drug abuse patient.[facility] Reason for Visit (unrecogniz ed section [...] BE BASED ON THE PRIMARY CLINICAL RECORDS. [employer] provides no warranty or guarantee of the accuracy or completeness of information in this document.
[2025-04-29 08:24] LABS: Anion Gap 12 (5-15); BUN 25 mg/dL (4-19); BUN/Creat Ratio 16.7 RATIO (10-20); Calcium,Total 9.1 mg/dL (7.6-11.0); Carbon Dioxide 27.0 mmol/L (21.0-32.0); Chloride 98 mmol/L (98-108); Glucose 201 mg/dL (70-99); Magnesium 2.3 mg/dL (1.5-2.2); Potassium 4.5 mmol/L (3.3-5.1)
== END ==
LOC: OLS.SWAL 05:00
PROVIDERS: PCP Internal Medicine; Visit Provider Internal Medicine
DX: E11.9 Type 2 diabetes mellitus without complications (principal); I10 Essential (primary) hypertension; E78.5 Hyperlipidemia, unspecified
CPT/HCPCS: 36415; 80048; 83735

== ENCOUNTER → 2025-05-06 | Outpatient (REF) | payer MEDICARE, MEDICAID, SELFPAY ==
--- OUTSIDE RECORDS SUMMARY | 2025-05-06 04:21 | XMS RPT_ITS | CCD ---
Author Organization [facility] Care Team Providers Care Polymerization Supervisor Name Role Phone Sena Cox NP Unavailable Johnny Richardson Unavailable Unavailable Unavailable [facility] Shayna Malhotra Primary Care Provider Dr. Shayna Malhotra Referring Provider [phone] Saad Villagomez Attending Provider Dr. Tyler Crespo Emergency Provider [phone] Dr. Alok Abdul Admit Provider Dr. Alok Abdlu Attending Provider Dr. Alok Abdul Other Provider [...] Provider Dr. Shayna Malhotra Attending Provider [phone] Shayna Malhotra Primary Care Provider Dr. [...] Marya LEAL, Dr. Corral Primary Care Physician Genoveva LEAL, Dr. Servin Attending Physician Unavail [...] Allergy 08-12-19 06 Shortness of Breath, Anaphylaxis [facility] (20 sources) Contrast media; Translations: [red dye] Drug Allergy 02-10-20 16 [facility] (5 sources) Fish Drug Allergy 02-10-20 16 [facility] (20 sources) metFORMIN Drug Allergy 11-21-19 17 Diarrhea, GI Upset, Vomiting [facility] (20 sources) paliperidone Drug Allergy 11-21-19 17 Rash [facility] (14 sources) Penicillins Drug Allergy 07-15-19 06 [facility] (20 sources) Shellfish; Translations: [shellfish derived] Drug Intolerance 02-29-20 19 Diarrhea, Vomiting [facility] (15 sources) Sulfonamides (Antibiotic) Drug Allergy 07-15-19 06 [facility] (15 sources) Iodinated Contrast Media Drug Allergy 02-29-20 19 Rash [facility] (4 sources) Mold Extract Drug Allergy 09-08-19 Rash [facility] (20 sources) Ciprofloxacin; Translations: [ciprofloxacin HCl] Drug Allergy 08-12-19 22 Anaphylaxis [facility] (19 sources) red (food color); Translations: [red (food color)] Allergy to substance 09-21-19 Hives [facility] (1 source) Penicillins Drug Allergy 07-15-19 Rash [facility] (9 sources) Penicillins Allergy to substance 11-23-19 RASH AND ITCHING [facility] (9 sources) Sulfonamides (Antibiotic) Allergy to substance 11-23-19 RASH AND ITCHING [facility] (9 sources) Triiodobenzoic Acids Allergy to substance 11-23-19 Rash [facility] (1 source) Ciprofloxacin Drug Allergy 10-10-19 [facility] (1 source) metFORMIN Drug Allergy 10-10-19 [facility] (1 source) paliperidone Drug Allergy 10-10-19 [facility] (1 source) Penicillins Drug allergy (disorder) 10-10-19 [facility] (1 source) Sulfonamides (Antibiotic) Drug allergy (disorder) 10-10-19 [facility] (1 source) Iodinated Contrast Media Drug allergy (disorder) 10-10-19 [facility] Medications Current Medications Medication Drug Class(es) Dates Sig (Normalized) Sig (Original) acetaminophen 325 mg oral tablet (20 sources) Start: 09-07-2021 End: 09-21-2021 take 2 tablets by mouth every six hours acetaminophen (TYLENOL) 325 mg tablet Take 2 tablets by mouth every 6 hours for 14 days. 112 tablet 0 09/07/2021 09/21/2021 Active Start: 07-30-2021 [facility] four hours as needed Acetaminophen (Tylenol) [...] D2 Compound Start: 09-20-2021 Start: 09-20-2021 take 36385 [IU] by m outh every other week Ergocalciferol (Vitamin D2) Active 41746 UNIT PO Q1September 19, 2021 11:00pm Take every 2 weeks on Mondays Start: 09-08-2017 End: 03-21-2020 Ergocalciferol (Vitamin D2) 50,000 unit capsule Discontinued 47723 U PO EVERY MONTH 10 September 08, [...] SOPN Use 18 units daily. 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 LANCETS [id number] Sena Cox [employer]ILDLAND FIREFIGHTER mag hydrox/aluminum hyd/simeth (ANTACID SUSPENSION ORAL) (5 [...] Active Comment on above: twice daily. nystatin 860450 unt/ml oral suspension (17 sources) Polyene Antifungal [...] November 23, 2021 11:00pm polyethylene glycol 3350 56638 mg powder for oral solution (9 sources) Osmotic Laxative Start: 09-08-2021 End: 10-08-2021 polyethylene glycol 3350 (MIRALAX, GLYCOLAX) 17 gram packet Take 1 Packet by mouth once daily. Dissolve dose in 4 - 8 ounces of liquid and take as directed. 30 Packet 0 09/08/2021 10/08/2021 Comment on above: Take 1 Packet by [facility] once daily. Dissolve dose in 4 [...] shows localized disease. 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 [id number] Diamond Wheel Molder: Cody Llanos MD, Phone: [phone] Performed By: #### L 500.4050, L506.1000, L501.9985, L100.0100 #### [facility] [address] [place], [address] Urine Cultureon 04-03-2025 [facility] Presumptive E. coli Tonasket Count >100,000 Presumptive E. coli: REACTION Ampicillin Islt TRANG >=32 Ampicillin+Sulbac Islt TRANG 16 I Cefepime Islt TRANG <=0.12 S cefTRIAXone Islt TRANG <=0.25 S Ciprofloxacin Islt TRANG <=0.06 S B-Lactamase Extended Susc Islt NEG Gentamicin Islt TRNAG <=1 S levoFLOXacin Islt TRANG <=0.12 S Meropenem Islt TRANG <=0.25 S Nitrofurantoin Islt TRANG <=16 S Pip+Tazo Islt TRANG <=4 S TMP SMX Islt TRANG <=20 S Normal [facility] Comment on above: Performed By: #### L 500.4050, L506.1000, L501.9985, L100.0100 #### [facility] [address] [place], [address] Basic Metabolic Profile (BMP )on 04-01-2025 BUN/CRE 23.4 RATIO High 10-20 [facility] Comment on above: Performed By: #### L 501.080 #### [facility] [address] [place], [address] Calcium [Mass/Vol] 9.4 mg/dL Normal 7.6-11.0 [facility] Comment on above: Performed By: #### L 501.080 #### [facility] [address] [place], [address] Chloride [Moles/Vol] 102 mmol/L Normal 98-108 [facility] Comment on above: Performed By: #### L 501.080 #### [facility] [address] [place], [address] CO2 [Moles/Vol] 25.7 mmol/L Normal 21.0-32.0 [facility] Comment on above: Performed By: #### L 501.080 #### [facility] [address] [place], [address] Creatinine [Mass/Vol] 1.04 mg/dL Normal 0.70-1.20 [facility] Comment on above: Performed By: #### L 501.080 #### [facility] [address] [place], [address] GAP 10 Normal 5-15 [facility] Comment on above: Performed By: #### L 501.080 #### [facility] [address] [place], [address] GFR/1.73 sq M.predicted among non-blacks MDRD (S/P/Bld) [Vol rate/Area] 57 mL/min/{1.73_m2} Low >60 [facility] Comment on above: Result Comment: mL/m in/1.73m2 CKD-EPI Creatinine Equation (2020) Performed By: #### L 501.080 #### [facility] [address] [place], [address] Glucose [Mass/Vol] 214 mg/dL High 70-99 [facility] Comment on above: Performed By: #### L 501.080 #### [facility] [address] [place], [address] Potassium [Moles/Vol] 4.5 mmol/L Normal 3.3-5.1 [facility] Comment on above: Performed By: #### L 501.080 #### [facility] [address] [place], [address] Sodium [Moles/Vol] 138 mmol/L Normal 133-145 [facility] Comment on above: Performed By: #### L 501.080 #### [facility] [address] [place], [address] Urea nitrogen [Mass/Vol] 24 mg/dL High 4-19 [facility] Comment on above: Performed By: #### L 501.080 #### [facility] [address] [place], [address] CBC-Complete Blood Cnt No Di ffon 04-01-2025 Erythrocyte distribution width (RBC) [Ratio] 14.6 % Normal 11.6-14.6 [facility] Comment on above: Performed By: #### L 501.080 #### [facility] [address] [place], [address] Hematocrit (Bld) [Volume fraction] 34.6 % Low 37-47 [facility] Comment on above: Performed By: #### L 501.080 #### [facility] [address] [place], [address] Hemoglobin (Bld) [Mass/Vol] 11.6 g/dL Low 12.0-15.0 [facility] Comment on above: Performed By: #### L 501.080 #### [facility] [address] [place], [address] MCH (RBC) [Entitic mass] 30.4 pg Normal 27.0-32.0 [facility] Comment on above: Performed By: #### L 501.080 #### [facility] [address] [place], [address] MCHC (RBC) [Mass/Vol] 33.5 g/dL Normal 32-36 [facility] Comment on above: Performed By: #### L 501.080 #### [facility] [address] [place], [address] MCV (RBC) [Entitic vol] 90.6 fL Normal 81-99 [facility] Comment on above: Performed By: #### L 501.080 #### [facility] [address] [place], [address] Platelet mean volume (Bld) [Entitic vol] 11.0 fL Normal 6.2-12.0 [facility] Comment on above: Performed By: #### L 501.080 #### [facility] [address] [place], [address] Platelets (Bld) [#/Vol] 103 10*3/uL Low 150-450 [facility] Comment on above: Performed By: #### L 501.080 #### [facility] [address] [place], [address] RBC (Bld) [#/Vol] 3.82 10*6/uL Low 4.2-5.4 [facility] Comment on above: Performed By: #### L 501.080 #### [facility] [address] [place], [address] RDW SD 48.3 fl High 35.1-43.9 [facility] Comment on above: Performed By: #### L 501.080 #### [facility] [address] [place], [address] WBC (Bld) [#/Vol] 3.6 10*3/uL Low 4.4-11.0 [facility] Comment on above: Performed By: #### L 501.080 #### [facility] [address] [place], [address] Magnesiumon 04-01-2025 Magnesium [Mass/Vol] 2.3 mg/dL High 1.5-2.2 [facility] Comment on above: Performed By: #### L 501.080 #### [facility] [address] [place], [address] Urinalysis, Completeon 04-01 BACTERIA 2+ /hpf Normal None Seen [facility] Comment on above: Order Comment: CLEAN CATCH Performed By: #### L 501.080 #### [facility] [address] [place], [address] EPI,SQUAMOUS 0-5 SEEN Normal 5-10 [facility] Comment on above: Order Comment: CLEAN CATCH Performed By: #### L 501.080 #### [facility] [address] [place], [address] WBC 10-25 SEEN Normal 0-5 [facility] Comment on above: Order Comment: CLEAN CATCH Performed By: #### L 501.080 #### [facility] [address] [place], [address] Mucus Ql (Urine sed) [address] [facility] Comment on above: Order Comment: CLEAN CATCH Performed By: #### L 501.080 #### [facility] [address] [place], [address] RBC 0 SEEN Normal 0-5 [facility] Comment on above: Order Comment: CLEAN CATCH Performed By: #### L 501.080 #### [facility] [address] [place], [address] Basic Metabolic Profile (BMP )on 03-20-2025 BUN/CRE 20.6 RATIO High 03-25 [facility] Comment on above: Order Comment: 134 Performed By: #### L 500.4050, L506.1000, L501.9985, L100.0100 #### [facility] [address] [place], [address] Calcium [Mass/Vol] 9.7 mg/dL Normal 7.6-11.0 [facility] Comment on above: Order Comment: 134 Performed By: #### L 500.4050, L506.1000, L501.9985, L100.0100 #### [facility] [address] [place], [address] Chloride [Moles/Vol] 103 mmol/L Normal 98-108 [facility] Comment on above: Order Comment: 134 Performed By: #### L 500.4050, L506.1000, L501.9985, L100.0100 #### [facility] [address] [place], [address] CO2 [Moles/Vol] 21.4 mmol/L Normal 21.0-32.0 [facility] Comment on above: Order Comment: 134 Performed By: #### L 500.4050, L506.1000, L501.9985, L100.0100 #### [facility] [address] [place], [address] Creatinine [Mass/Vol] 1.15 mg/dL Normal 0.70-1.20 [facility] Comment on above: Order Comment: 134 Performed By: #### L 500.4050, L506.1000, L501.9985, L100.0100 #### [facility] [address] [place], [address] GAP 13 Normal 5-15 [facility] Comment on above: Order Comment: 134 Performed By: #### L 500.4050, L506.1000, L501.9985, L100.0100 #### [facility] [address] [place], [address] GFR/1.73 sq M.predicted among non-blacks MDRD (S/P/Bld) [Vol rate/Area] 51 mL/min/{1.73_m2} Low >60 [facility] Comment on above: Order Comment: 134 Result Comment: mL/m in/1.73m2 CKD-EPI Creatinine Equation (2020) Performed By: #### L 500.4050, L506.1000, L501.9985, L100.0100 #### [facility] [address] [place], [address] Glucose [Mass/Vol] 224 mg/dL High 70-99 [facility] Comment on above: Order Comment: 134 Performed By: #### L 500.4050, L506.1000, L501.9985, L100.0100 #### [facility] [address] [place], [address] Potassium [Moles/Vol] 4.7 mmol/L Normal 3.3-5.1 [facility] Comment on above: Order Comment: 134 Result Comment: Hemo lysis present, Results??could be affected. ?? Performed By: #### L 500.4050, L506.1000, L501.9985, L100.0100 #### [facility] [address] [place], [address] Sodium [Moles/Vol] 137 mmol/L Normal 133-145 [facility] Comment on above: Order Comment: 134 Performed By: #### L 500.4050, L506.1000, L501.9985, L100.0100 #### [facility] [address] [place], [address] Urea nitrogen [Mass/Vol] 24 mg/dL High 4-19 [facility] Comment on above: Order Comment: 134 Performed By: #### L 500.4050, L506.1000, L501.9985, L100.0100 #### [facility] [address] [place], [address] CBC-Complete Blood Cnt No Di ffon 03-20-2025 Erythrocyte distribution width (RBC) [Ratio] 14.8 % High 11.6-14.6 [facility] Comment on above: Order Comment: 134 Performed By: #### L 500.4050, L506.1000, L501.9985, L100.0100 #### [facility] [address] [place], [address] Hematocrit (Bld) [Volume fraction] 35.8 % Low 37-47 [facility] Comment on above: Order Comment: 134 Performed By: #### L 500.4050, L506.1000, L501.9985, L100.0100 #### [facility] [address] [place], [address] Hemoglobin (Bld) [Mass/Vol] 11.8 g/dL Low 12.0-15.0 [facility] Comment on above: Order Comment: 134 Performed By: #### L 500.4050, L506.1000, L501.9985, L100.0100 #### [facility] [address] [place], [address] MCH (RBC) [Entitic mass] 29.9 pg Normal 27.0-32.0 [facility] Comment on above: Order Comment: 134 Performed By: #### L 500.4050, L506.1000, L501.9985, L100.0100 #### [facility] [address] [place], [address] MCHC (RBC) [Mass/Vol] 33.0 g/dL Normal 32-36 [facility] Comment on above: Order Comment: 134 Performed By: #### L 500.4050, L506.1000, L501.9985, L100.0100 #### [facility] [address] [place], [address] MCV (RBC) [Entitic vol] 90.6 fL Normal 81-99 [facility] Comment on above: Order Comment: 134 Performed By: #### L 500.4050, L506.1000, L501.9985, L100.0100 #### [facility] [address] [place], [address] Platelet mean volume (Bld) [Entitic vol] 11.3 fL Normal 6.2-12.0 [facility] Comment on above: Order Comment: 134 Performed By: #### L 500.4050, L506.1000, L501.9985, L100.0100 #### [facility] [address] [place], [address] Platelets (Bld) [#/Vol] 103 10*3/uL Low 150-450 [facility] Comment on above: Order Comment: 134 Performed By: #### L 500.4050, L506.1000, L501.9985, L100.0100 #### [facility] [address] [place], [address] RBC (Bld) [#/Vol] 3.95 10*6/uL Low 4.2-5.4 [facility] Comment on above: Order Comment: 134 Performed By: #### L 500.4050, L506.1000, L501.9985, L100.0100 #### [facility] [address] [place], [address] RDW SD 49.4 fl High 35.1-43.9 [facility] Comment on above: Order Comment: 134 Performed By: #### L 500.4050, L506.1000, L501.9985, L100.0100 #### [facility] [address] [place], [address] WBC (Bld) [#/Vol] 3.7 10*3/uL Low 4.4-11.0 [facility] Comment on above: Order Comment: 134 Performed By: #### L 500.4050, L506.1000, L501.9985, L100.0100 #### [facility] [address] [place], [address] Hemoglobin A1con 03-20-2025 HbA1c (Bld) [Mass fraction] 7.1 % High <=5.6 [facility] Comment on above: Order Comment: 134 Result Comment: Norm al < 5.7 % Prediabetic 5.7 - 6.4 % Diabetic >or= 6.5 % Please note range changes. Performed By: #### L 500.4050, L506.1000, L501.9985, L100.0100 #### [facility] [address] [place], [address] Pro- Brain NATRIURETIC PEPTI Oskar 03-20-2025 Natriuretic peptide B (Bld) [Mass/Vol] 133 pg/mL Normal <=900 [facility] Comment on above: Order Comment: 134 Result Comment: Hear t Failure Unlikely: < 300 pg/mL Heart Failure Likely < 50 Years: > 450 pg/mL 50-75 Years: > 900 pg/mL >75 Years: > 1800 pg/mL Performed By: #### L 500.4050, L506.1000, L501.9985, L100.0100 #### [facility] [address] [place], [address] Magnesiumon 01-23-2025 Magnesium [Mass/Vol] 2.1 mg/dL Normal 1.5-2.2 [facility] Comment on above: Order Comment: 134 Performed By: #### L 500.4050, L506.1000, L501.9985, L100.0100 #### [facility] [address] [place], [address] Anion gap in Serum or Plasma Ordered By: Malathi Tomas on 01-21-2025 Anion gap [Moles/Vol] 13 mmol/L -15 [facility] BUN/creatinine ratioOrdered By: Malathi Tomas on 01-21-2025 Urea nitrogen/Creatinine [Mass ratio] 23.4 mg/mg High - [facility] Basic Metabolic Profile (BMP )on 01-21-2025 BUN/CRE 23.4 RATIO High - [facility] Comment on above: Order Comment: 134 Performed By: #### L 500.4050, L506.1000, L501.9985, L100.0100 #### [facility] [address] [place], [address] Calcium [Mass/Vol] 9.2 mg/dL Normal 7.6-11.0 [facility] Comment on above: Order Comment: 134 Performed By: #### L 500.4050, L506.1000, L501.9985, L100.0100 #### [facility] [address] [place], [address] Chloride [Moles/Vol] 103 mmol/L Normal 98-108 [facility] Comment on above: Order Comment: 134 Performed By: #### L 500.4050, L506.1000, L501.9985, L100.0100 #### [facility] [address] [place], [address] CO2 [Moles/Vol] 20.8 mmol/L Low 21.0-32.0 [facility] Comment on above: Order Comment: 134 Performed By: #### L 500.4050, L506.1000, L501.9985, L100.0100 #### [facility] [address] [place], [address] Creatinine [Mass/Vol] 1.01 mg/dL Normal 0.70-1.20 [facility] Comment on above: Order Comment: 134 Performed By: #### L 500.4050, L506.1000, L501.9985, L100.0100 #### [facility] [address] [place], [address] GAP 13 Normal 5-15 [facility] Comment on above: Order Comment: 134 Performed By: #### L 500.4050, L506.1000, L501.9985, L100.0100 #### [facility] [address] [place], [address] GFR/1.73 sq M.predicted among non-blacks MDRD (S/P/Bld) [Vol rate/Area] 59 mL/min/{1.73_m2} Low >60 [facility] Comment on above: Order Comment: 134 Result Comment: mL/m in/1.73m2 CKD-EPI Creatinine Equation (2020) Performed By: #### L 500.4050, L506.1000, L501.9985, L100.0100 #### [facility] [address] [place], [address] Glucose [Mass/Vol] 164 mg/dL High 70-99 [facility] Comment on above: Order Comment: 134 Performed By: #### L 500.4050, L506.1000, L501.9985, L100.0100 #### [facility] [address] [place], [address] Potassium [Moles/Vol] 4.8 mmol/L Normal 3.3-5.1 [facility] Comment on above: Order Comment: 134 Performed By: #### L 500.4050, L506.1000, L501.9985, L100.0100 #### [facility] [address] [place], [address] Sodium [Moles/Vol] 137 mmol/L Normal 133-145 [facility] Comment on above: Order Comment: 134 Performed By: #### L 500.4050, L506.1000, L501.9985, L100.0100 #### [facility] [address] [place], [address] Urea nitrogen [Mass/Vol] 24 mg/dL High 4-19 [facility] Comment on above: Order Comment: 134 Performed By: #### L 500.4050, L506.1000, L501.9985, L100.0100 #### [facility] [address] [place], [address] Carbon dioxide, total [Moles /volume] in Central venous bloodOrdered By: Malathi Tomas on 01-21-2025 CO2 [Moles/Vol] 20.8 mmol/L Low 21.0-32.0 [facility] Chloride assayOrdered By: Tao Tomas on 01-21-2025 Chloride [Moles/Vol] 103 mmol/L 98-108 [facility] Glomerular filtration rate ( GFR) estimation/1.73 sq m using serum, plasma, or whole bOrdered By: Malathi Tomas on 01-21-2025 GFR/1.73 sq M.predicted among non-blacks MDRD (S/P/Bld) [Vol rate/Area] 59 mL/min/{1.73_m2} Low >60 [facility] Comment on above: mL/min/1.73m2 CKD-EP I Creatinine Equation (2020) Magnesium measurement (mass/ volume)Ordered By: Malathi Tomas on 01-21-2025 Magnesium (Unsp spec) [Mass/Vol] 2.1 mg/dL 1.5-2.2 [facility] Natriuretic peptide.B prohor magi N-Terminal [Mass/volume] in Serum or PlasmaOrdered By: Malathi Tomas on 01-21-2025 Natriuretic peptide.B prohormone N-Terminal [Mass/Vol] 260 pg/mL <900 [facility] Comment on above: Heart Failure Unlike ly: < 300 pg/mLHeart Failure Likely< 50 Years: > 450 pg/mL50-75 Years: > 900 pg/mL>75 Years: > 1800 pg/mL Potassium measurement (mass/ volume)Ordered By: Malathi Tomas on 01-21-2025 Potassium (Unsp spec) [Mass/Vol] 4.8 mmol/L 3.3-5.1 [facility] Pro- Brain NATRIURETIC PEPTI Oskar 01-21-2025 Natriuretic peptide B (Bld) [Mass/Vol] 260 pg/mL Normal <=900 [facility] Comment on above: Order Comment: 134 Result Comment: Hear t Failure Unlikely: < 300 pg/mL Heart Failure Likely < 50 Years: > 450 pg/mL 50-75 Years: > 900 pg/mL >75 Years: > 1800 pg/mL Performed By: #### L 500.4050, L506.1000, L501.9985, L100.0100 #### [facility] [place], [address] Serum creatinine measurement (mass/volume)Ordered By: Malathi Tomas on 01-21-2025 Creatinine [Mass/Vol] 1.01 mg/dL 0.70-1.20 [facility] Serum glucose measurement (m ass/volume)Ordered By: Malathi Tomas on 01-21-2025 Glucose [Mass/Vol] 164 mg/dL High 70-99 [facility] Serum or plasma calcium kim urement (mass/volume)Ordered By: Malathi Tomas on 01-21-2025 Calcium [Mass/Vol] 9.2 mg/dL 7.6-11.0 [facility] Serum or plasma urea nitroge n measurement (mass/volume)Ordered By: Malathi Tomas on 01-21-2025 Urea nitrogen [Mass/Vol] 24 mg/dL High 4-19 [facility] Sodium levelOrdered By: Marie Tomas on 01-21-2025 Sodium [Moles/Vol] 137 mmol/L 133-145 [facility] Anion gap in Serum or Plasma Ordered By: Malathi Tomas on 12-04-2024 Anion gap [Moles/Vol] 10 mmol/L 5-15 [facility] BUN/creatinine ratioOrdered By: Malathi Tomas on 12-04-2024 Urea nitrogen/Creatinine [Mass ratio] 22.2 mg/mg High - [facility] Basic Metabolic Profile (BMP )on 12-04-2024 BUN/CRE 22.2 RATIO High - [facility] Comment on above: Order Comment: N Performed By: #### L 506.0200 #### [facility] [address] [place], [address] Calcium [Mass/Vol] 9.4 mg/dL Normal 7.6-11.0 [facility] Comment on above: Order Comment: N Performed By: #### L 506.0200 #### [facility] [address] [place], [address] Chloride [Moles/Vol] 103 mmol/L Normal 98-108 [facility] Comment on above: Order Comment: N Performed By: #### L 506.0200 #### [facility] [address] [place], [address] CO2 [Moles/Vol] 23.5 mmol/L Normal 21.0-32.0 [facility] Comment on above: Order Comment: N Performed By: #### L 506.0200 #### [facility] [address] [place], [address] Creatinine [Mass/Vol] 1.13 mg/dL Normal 0.70-1.20 [facility] Comment on above: Order Comment: N Performed By: #### L 506.0200 #### [facility] [address] [place], [address] GAP 10 Normal 5-15 [facility] Comment on above: Order Comment: N Performed By: #### L 506.0200 #### [facility] [address] [place], [address] GFR/1.73 sq M.predicted among non-blacks MDRD (S/P/Bld) [Vol rate/Area] 52 mL/min/{1.73_m2} Low >60 [facility] Comment on above: Order Comment: N Result Comment: mL/m in/1.73m2 CKD-EPI Creatinine Equation (2020) Performed By: #### L 506.0200 #### [facility] [address] [place], [address] Glucose [Mass/Vol] 83 mg/dL Normal 70-99 [facility] Comment on above: Order Comment: N Performed By: #### L 506.0200 #### [facility] [address] [place], [address] Potassium [Moles/Vol] 5.1 mmol/L Normal 3.3-5.1 [facility] Comment on above: Order Comment: N Result Comment: Hemo lysis present, Results??could be affected. ?? Performed By: #### L 506.0200 #### [facility] [address] [place], [address] Sodium [Moles/Vol] 136 mmol/L Normal 133-145 [facility] Comment on above: Order Comment: N Performed By: #### L 506.0200 #### [facility] [address] [place], [address] Urea nitrogen [Mass/Vol] 25 mg/dL High 4-19 [facility] Comment on above: Order Comment: N Performed By: #### L 506.0200 #### [facility] [address] [place], [address] CBC-Complete Blood Cnt No Di ffon 12-04-2024 Erythrocyte distribution width (RBC) [Ratio] 16.2 % High 11.6-14.6 [facility] Comment on above: Order Comment: N Performed By: #### L 506.0200 #### [facility] [address] [place], [address] Hematocrit (Bld) [Volume fraction] 33.8 % Low 37-47 [facility] Comment on above: Order Comment: N Performed By: #### L 506.0200 #### [facility] [address] [place], [address] Hemoglobin (Bld) [Mass/Vol] 11.2 g/dL Low 12.0-15.0 [facility] Comment on above: Order Comment: N Performed By: #### L 506.0200 #### [facility] [address] [place], [address] MCH (RBC) [Entitic mass] 29.3 pg Normal 27.0-32.0 [facility] Comment on above: Order Comment: N Performed By: #### L 506.0200 #### [facility] [address] [place], [address] MCHC (RBC) [Mass/Vol] 33.1 g/dL Normal 32-36 [facility] Comment on above: Order Comment: N Performed By: #### L 506.0200 #### [facility] [address] [place], [address] MCV (RBC) [Entitic vol] 88.5 fL Normal 81-99 [facility] Comment on above: Order Comment: N Performed By: #### L 506.0200 #### [facility] [address] [place], [address] Platelet mean volume (Bld) [Entitic vol] 11.2 fL Normal 6.2-12.0 [facility] Comment on above: Order Comment: N Performed By: #### L 506.0200 #### [facility] [address] [place], [address] Platelets (Bld) [#/Vol] 119 10*3/uL Low 150-450 [facility] Comment on above: Order Comment: N Performed By: #### L 506.0200 #### [facility] [address] [place], [address] RBC (Bld) [#/Vol] 3.82 10*6/uL Low 4.2-5.4 [facility] Comment on above: Order Comment: N Performed By: #### L 506.0200 #### [facility] [address] [place], [address] RDW SD 52.9 fl High 35.1-43.9 [facility] Comment on above: Order Comment: N Performed By: #### L 506.0200 #### [facility] [address] [place], [address] WBC (Bld) [#/Vol] 3.1 10*3/uL Low 4.4-11.0 [facility] Comment on above: Order Comment: N Performed By: #### L 506.0200 #### [facility] [address] [place], [address] Carbon dioxide, total [Moles /volume] in Central venous bloodOrdered By: Malathi Tomas on 12-04-2024 CO2 [Moles/Vol] 23.5 mmol/L 21.0-32.0 [facility] Chloride assayOrdered By: Tao Tomas on 12-04-2024 Chloride [Moles/Vol] 103 mmol/L 98-108 [facility] Erythrocyte distribution wid th ratioOrdered By: Malathi Tomas on 12-04-2024 Erythrocyte distribution width (RBC) [Ratio] 16.2 % High 11.6-14.6 [facility] Erythrocyte distribution wid th standard deviationOrdered By: Malathi Tomas on 12-04-2024 Erythrocyte distribution width (RBC) [Ratio] 52.9 fl High 35.1-43.9 [facility] Glomerular filtration rate ( GFR) estimation/1.73 sq m using serum, plasma, or whole bOrdered By: Malathi Tomas on 12-04-2024 GFR/1.73 sq M.predicted among non-blacks MDRD (S/P/Bld) [Vol rate/Area] 52 mL/min/{1.73_m2} Low >60 [facility] Comment on above: mL/min/1.73m2 CKD-EP I Creatinine Equation (2020) Hematocrit Auto (Bld) [Volum e fraction]Ordered By: Malathi Tomas on 12-04-2024 Hematocrit (Bld) [Volume fraction] 33.8 % Low 37-47 [facility] Hemoglobin measurementOrdere d By: Malathi Tomas on 12-04-2024 Hemoglobin (Bld) [Mass/Vol] 11.2 g/dL Low 12.0-15.0 [facility] MCV (mean corpuscular volume ) determinationOrdered By: Malathi Tomas on 12-04-2024 MCV (RBC) [Entitic vol] 88.5 fL 81-99 [facility] Magnesiumon 12-04-2024 Magnesium [Mass/Vol] 2.3 mg/dL High 1.5-2.2 [facility] Comment on above: Order Comment: N Performed By: #### L 506.0200 #### [facility] [address] [place], [place] [address], [place], [id number] Magnesium measurement (mass/ volume)Ordered By: Malathi Tomas on 12-04-2024 Magnesium (Unsp spec) [Mass/Vol] 2.3 mg/dL High 1.5-2.2 [facility] Mean corpuscular hemoglobin (MCH) determinationOrdered By: Malathi Tomas on 12-04-2024 MCH (RBC) [Entitic mass] 29.3 pg 27.0-32.0 [facility] Mean corpuscular hemoglobin concentration (MCHC) determinationOrdered By: Malathi Tomas on 12-04-2024 MCHC (RBC) [Mass/Vol] 33.1 g/dL 32-36 [facility] Mean platelet volume determi nationOrdered By: Malathi Tomas on 12-04-2024 Platelet mean volume (Bld) [Entitic vol] 11.2 fL 6.2-12.0 [facility] Platelet countOrdered By: Tao Tomas on 12-04-2024 Platelets (Bld) [#/Vol] 119 10*3/uL Low 150-450 [facility] Potassium measurement (mass/ volume)Ordered By: Malathi Tomas on 12-04-2024 Potassium (Unsp spec) [Mass/Vol] 5.1 mmol/L 3.3-5.1 [facility] Comment on above: Hemolysis present, R esults could be affected. RBC Auto (Bld) [#/Vol]Ordere d By: Malathi Tomas on 12-04-2024 RBC (Bld) [#/Vol] 3.82 10*6/uL Low 4.2-5.4 [facility] Serum creatinine measurement (mass/volume)Ordered By: Malathi Tomas on 12-04-2024 Creatinine [Mass/Vol] 1.13 mg/dL 0.70-1.20 [facility] Serum glucose measurement (m ass/volume)Ordered By: Malathi Tomas on 12-04-2024 Glucose [Mass/Vol] 83 mg/dL 70-99 [facility] Serum or plasma calcium kim urement (mass/volume)Ordered By: Malathi Tomas on 12-04-2024 Calcium [Mass/Vol] 9.4 mg/dL 7.6-11.0 [facility] Serum or plasma urea nitroge n measurement (mass/volume)Ordered By: Malathi Tomas on 12-04-2024 Urea nitrogen [Mass/Vol] 25 mg/dL High 4-19 [facility] Sodium levelOrdered By: Marie Tomas on 12-04-2024 Sodium [Moles/Vol] 136 mmol/L 133-145 [facility] White blood cell (WBC) count Ordered By: Malathi Tomas on 12-04-2024 WBC (Bld) [#/Vol] 3.1 10*3/uL Low 4.4-11.0 [facility] Anion gap in Serum or Plasma Ordered By: Malathi Tomas on 11-26-2024 Anion gap [Moles/Vol] 12 mmol/L 5-15 [facility] BUN/creatinine ratioOrdered By: Malathi Tomas on 11-26-2024 Urea nitrogen/Creatinine [Mass ratio] 19.5 mg/mg - [facility] Basic Metabolic Profile (BMP )on 11-26-2024 BUN/CRE 19.5 RATIO Normal - [facility] Comment on above: Order Comment: 134 Performed By: #### L 500.4050, L506.1000, L501.9985, L100.0100 #### [facility] [address] [place], [address] Calcium [Mass/Vol] 9.3 mg/dL Normal 7.6-11.0 [facility] Comment on above: Order Comment: 134 Performed By: #### L 500.4050, L506.1000, L501.9985, L100.0100 #### [facility] [address] [place], [address] Chloride [Moles/Vol] 106 mmol/L Normal 98-108 [facility] Comment on above: Order Comment: 134 Performed By: #### L 500.4050, L506.1000, L501.9985, L100.0100 #### [facility] [address] [place], [address] CO2 [Moles/Vol] 22.9 mmol/L Normal 21.0-32.0 [facility] Comment on above: Order Comment: 134 Performed By: #### L 500.4050, L506.1000, L501.9985, L100.0100 #### [facility] [address] [place], [address] Creatinine [Mass/Vol] 0.95 mg/dL Normal 0.70-1.20 [facility] Comment on above: Order Comment: 134 Performed By: #### L 500.4050, L506.1000, L501.9985, L100.0100 #### [facility] [address] [place], [address] GAP 12 Normal 5-15 [facility] Comment on above: Order Comment: 134 Performed By: #### L 500.4050, L506.1000, L501.9985, L100.0100 #### [facility] [address] [place], [address] GFR/1.73 sq M.predicted among non-blacks MDRD (S/P/Bld) [Vol rate/Area] 64 mL/min/{1.73_m2} Normal >60 [facility] Comment on above: Order Comment: 134 Result Comment: mL/m in/1.73m2 CKD-EPI Creatinine Equation (2020) Performed By: #### L 500.4050, L506.1000, L501.9985, L100.0100 #### [facility] [address] [place], [address] Glucose [Mass/Vol] 89 mg/dL Normal 70-99 [facility] Comment on above: Order Comment: 134 Performed By: #### L 500.4050, L506.1000, L501.9985, L100.0100 #### [facility] [address] [place], [address] Potassium [Moles/Vol] 4.5 mmol/L Normal 3.3-5.1 [facility] Comment on above: Order Comment: 134 Performed By: #### L 500.4050, L506.1000, L501.9985, L100.0100 #### [facility] [address] [place], [address] Sodium [Moles/Vol] 140 mmol/L Normal 133-145 [facility] Comment on above: Order Comment: 134 Performed By: #### L 500.4050, L506.1000, L501.9985, L100.0100 #### [facility] [address] [place], [address] Urea nitrogen [Mass/Vol] 18 mg/dL Normal 4-19 [facility] Comment on above: Order Comment: 134 Performed By: #### L 500.4050, L506.1000, L501.9985, L100.0100 #### [facility] [address] [place], [address] Carbon dioxide, total [Moles /volume] in Central venous bloodOrdered By: Malathi Tomas on 11-26-2024 CO2 [Moles/Vol] 22.9 mmol/L 21.0-32.0 [facility] Chloride assayOrdered By: Tao Tomas on 11-26-2024 Chloride [Moles/Vol] 106 mmol/L 98-108 [facility] Glomerular filtration rate ( GFR) estimation/1.73 sq m using serum, plasma, or whole bOrdered By: Malathi Tomas on 11-26-2024 GFR/1.73 sq M.predicted among non-blacks MDRD (S/P/Bld) [Vol rate/Area] 64 mL/min/{1.73_m2} >60 [facility] Comment on above: mL/min/1.73m2 CKD-EP I Creatinine Equation (2020) Magnesiumon 11-26-2024 Magnesium [Mass/Vol] 2.2 mg/dL Normal 1.5-2.2 [facility] Comment on above: Order Comment: 134 Performed By: #### L 500.4050, L506.1000, L501.9985, L100.0100 #### [facility] [address] [place], [address] Magnesium measurement (mass/ volume)Ordered By: Malathi Tomas on 11-26-2024 Magnesium (Unsp spec) [Mass/Vol] 2.2 mg/dL 1.5-2.2 [facility] Potassium measurement (mass/ volume)Ordered By: Malathi Tomas on 11-26-2024 Potassium (Unsp spec) [Mass/Vol] 4.5 mmol/L 3.3-5.1 [facility] Serum creatinine measurement (mass/volume)Ordered By: Malathi Tomas on 11-26-2024 Creatinine [Mass/Vol] 0.95 mg/dL 0.70-1.20 [facility] Serum glucose measurement (m ass/volume)Ordered By: Malathi Tomas on 11-26-2024 Glucose [Mass/Vol] 89 mg/dL 70-99 [facility] Serum or plasma calcium kim urement (mass/volume)Ordered By: Malathi Tomas on 11-26-2024 Calcium [Mass/Vol] 9.3 mg/dL 7.6-11.0 [facility] Serum or plasma urea nitroge n measurement (mass/volume)Ordered By: Malathi Tomas on 11-26-2024 Urea nitrogen [Mass/Vol] 18 mg/dL 4-19 [facility] Sodium levelOrdered By: Marie Tomas on 11-26-2024 Sodium [Moles/Vol] 140 mmol/L 133-145 [facility] Basic Metabolic Profile (BMP )on 11-07-2024 BUN/CRE 19.5 RATIO Normal 10-20 [facility] Comment on above: Order Comment: 134 Performed By: #### L 500.4050, L506.1000, L501.9985, L100.0100 #### [facility] [address] [place], [address] Calcium [Mass/Vol] 9.0 mg/dL Normal 7.6-11.0 [facility] Comment on above: Order Comment: 134 Performed By: #### L 500.4050, L506.1000, L501.9985, L100.0100 #### [facility] [address] [place], [address] Chloride [Moles/Vol] 103 mmol/L Normal 98-108 [facility] Comment on above: Order Comment: 134 Performed By: #### L 500.4050, L506.1000, L501.9985, L100.0100 #### [facility] [address] [place], [address] CO2 [Moles/Vol] 25.5 mmol/L Normal 21.0-32.0 [facility] Comment on above: Order Comment: 134 Performed By: #### L 500.4050, L506.1000, L501.9985, L100.0100 #### [facility] [address] [place], [address] Creatinine [Mass/Vol] 0.82 mg/dL Normal 0.70-1.20 [facility] Comment on above: Order Comment: 134 Performed By: #### L 500.4050, L506.1000, L501.9985, L100.0100 #### [facility] [address] [place], [address] GAP 10 Normal 5-15 [facility] Comment on above: Order Comment: 134 Performed By: #### L 500.4050, L506.1000, L501.9985, L100.0100 #### [facility] [address] [place], [address] GFR/1.73 sq M.predicted among non-blacks MDRD (S/P/Bld) [Vol rate/Area] 76 mL/min/{1.73_m2} Normal >60 [facility] Comment on above: Order Comment: 134 Result Comment: mL/m in/1.73m2 CKD-EPI Creatinine Equation (2020) Performed By: #### L 500.4050, L506.1000, L501.9985, L100.0100 #### [facility] [address] [place], [address] Glucose [Mass/Vol] 79 mg/dL Normal 70-99 [facility] Comment on above: Order Comment: 134 Performed By: #### L 500.4050, L506.1000, L501.9985, L100.0100 #### [facility] [address] [place], [address] Potassium [Moles/Vol] 4.1 mmol/L Normal 3.3-5.1 [facility] Comment on above: Order Comment: 134 Performed By: #### L 500.4050, L506.1000, L501.9985, L100.0100 #### [facility] [address] [place], [address] Sodium [Moles/Vol] 139 mmol/L Normal 133-145 [facility] Comment on above: Order Comment: 134 Performed By: #### L 500.4050, L506.1000, L501.9985, L100.0100 #### [facility] [address] [place], [address] Urea nitrogen [Mass/Vol] 16 mg/dL Normal 4-19 [facility] Comment on above: Order Comment: 134 Performed By: #### L 500.4050, L506.1000, L501.9985, L100.0100 #### [facility] [address] [place], [address] CBC W/Diff, Automatedon 06-0 4-2025 Absolute Lymph 1.04 X10 3/uL Normal 0.83-4.51 [facility] Comment on above: Order Comment: 134 Performed By: #### L 500.4050, L506.1000, L501.9985, L100.0100 #### [facility] [address] [place], [address] Absolute Neut 2.2 X10 3/uL Normal 2.0-7.7 [facility] Comment on above: Order Comment: 134 Performed By: #### L 500.4050, L506.1000, L501.9985, L100.0100 #### [facility] [address] [place], [address] Basophils/100 WBC (Bld) 0.8 % Normal 0-1 [facility] Comment on above: Order Comment: 134 Performed By: #### L 500.4050, L506.1000, L501.9985, L100.0100 #### [facility] [address] [place], [address] Eosinophils/100 WBC (Bld) 3.2 % Normal 0-5 [facility] Comment on above: Order Comment: 134 Performed By: #### L 500.4050, L506.1000, L501.9985, L100.0100 #### [facility] [address] [place], [address] Erythrocyte distribution width (RBC) [Ratio] 15.9 % High 11.6-14.6 [facility] Comment on above: Order Comment: 134 Performed By: #### L 500.4050, L506.1000, L501.9985, L100.0100 #### [facility] [address] [place], [address] Hematocrit (Bld) [Volume fraction] 34.4 % Low 37-47 [facility] Comment on above: Order Comment: 134 Performed By: #### L 500.4050, L506.1000, L501.9985, L100.0100 #### [facility] [address] [place], [address] Hemoglobin (Bld) [Mass/Vol] 11.1 g/dL Low 12.0-15.0 [facility] Comment on above: Order Comment: 134 Performed By: #### L 500.4050, L506.1000, L501.9985, L100.0100 #### [facility] [address] [place], [address] IG% 0.500 Normal 0.0-0.9 [facility] Comment on above: Order Comment: 134 Result Comment: IG% - Immature Granulocytes (promyelocytes, myelocytes and metamyelocytes) > 1% indicates that a LEFT SHIFT is Present. Performed By: #### L 500.4050, L506.1000, L501.9985, L100.0100 #### [facility] [address] [place], [address] Lymphocytes/100 WBC (Bld) 27.4 % Normal 19-41 [facility] Comment on above: Order Comment: 134 Performed By: #### L 500.4050, L506.1000, L501.9985, L100.0100 #### [facility] [address] [place], [address] MCH (RBC) [Entitic mass] 28.3 pg Normal 27.0-32.0 [facility] Comment on above: Order Comment: 134 Performed By: #### L 500.4050, L506.1000, L501.9985, L100.0100 #### [facility] [address] [place], [address] MCHC (RBC) [Mass/Vol] 32.3 g/dL Normal 32-36 [facility] Comment on above: Order Comment: 134 Performed By: #### L 500.4050, L506.1000, L501.9985, L100.0100 #### [facility] [address] [place], [address] MCV (RBC) [Entitic vol] 87.8 fL Normal 81-99 [facility] Comment on above: Order Comment: 134 Performed By: #### L 500.4050, L506.1000, L501.9985, L100.0100 #### [facility] [address] [place], [address] Monocytes/100 WBC (Bld) 9.7 % Normal 0-10 [facility] Comment on above: Order Comment: 134 Performed By: #### L 500.4050, L506.1000, L501.9985, L100.0100 #### [facility] [address] [place], [address] Neutrophils/100 WBC (Bld) 58.4 % Normal 47-70 [facility] Comment on above: Order Comment: 134 Performed By: #### L 500.4050, L506.1000, L501.9985, L100.0100 #### [facility] [address] [place], [address] Nucleated RBC (Bld) [#/Vol] 0 10*3/uL Normal 0-5 [facility] Comment on above: Order Comment: 134 Performed By: #### L 500.4050, L506.1000, L501.9985, L100.0100 #### [facility] [address] [place], [address] Platelet mean volume (Bld) [Entitic vol] 10.7 fL Normal 6.2-12.0 [facility] Comment on above: Order Comment: 134 Performed By: #### L 500.4050, L506.1000, L501.9985, L100.0100 #### [facility] [address] [place], [address] Platelets (Bld) [#/Vol] 122 10*3/uL Low 150-450 [facility] Comment on above: Order Comment: 134 Performed By: #### L 500.4050, L506.1000, L501.9985, L100.0100 #### [facility] [address] [place], [address] RBC (Bld) [#/Vol] 3.92 10*6/uL Low 4.2-5.4 [facility] Comment on above: Order Comment: 134 Performed By: #### L 500.4050, L506.1000, L501.9985, L100.0100 #### [facility] [address] [place], [address] RDW SD 51.3 fl High 35.1-43.9 [facility] Comment on above: Order Comment: 134 Performed By: #### L 500.4050, L506.1000, L501.9985, L100.0100 #### [facility] [address] [place], [address] WBC (Bld) [#/Vol] 3.8 10*3/uL Low 4.4-11.0 [facility] Comment on above: Order Comment: 134 Performed By: #### L 500.4050, L506.1000, L501.9985, L100.0100 #### [facility] [address] [place], [address] Magnesiumon 11-07-2024 Magnesium [Mass/Vol] 2.1 mg/dL Normal 1.5-2.2 [facility] Comment on above: Order Comment: 134 Performed By: #### L 500.4050, L506.1000, L501.9985, L100.0100 #### [facility] [address] [place], [address] Basic Metabolic Profile (BMP )on 11-06-2024 BUN Normal 4-19 [facility] Comment on above: Order Comment: 134 Result Comment: QNS UTO X1 Performed By: #### L 500.4050, L506.1000, L501.9985, L100.0100 #### [facility] [address] [place], [address] BUN/CRE Normal 10-20 [facility] Comment on above: Order Comment: 134 Result Comment: QNS UTO X1 Performed By: #### L 500.4050, L506.1000, L501.9985, L100.0100 #### [facility] [address] [place], [address] Calcium Normal 7.6-11.0 [facility] Comment on above: Order Comment: 134 Result Comment: QNS UTO X1 Performed By: #### L 500.4050, L506.1000, L501.9985, L100.0100 #### [facility] [address] [place], [address] CL Normal 98-108 [facility] Comment on above: Order Comment: 134 Result Comment: QNS UTO X1 Performed By: #### L 500.4050, L506.1000, L501.9985, L100.0100 #### [facility] [address] [place], [address] CO2 Normal 21.0-32.0 [facility] Comment on above: Order Comment: 134 Result Comment: QNS UTO X1 Performed By: #### L 500.4050, L506.1000, L501.9985, L100.0100 #### [facility] [address] [place], [address] CREAT,SERUM Normal 0.70-1.20 [facility] Comment on above: Order Comment: 134 Result Comment: QNS UTO X1 Performed By: #### L 500.4050, L506.1000, L501.9985, L100.0100 #### [facility] [address] [place], [address] eGFR Normal >60 [facility] Comment on above: Order Comment: 134 Result Comment: QNS UTO X1 Performed By: #### L 500.4050, L506.1000, L501.9985, L100.0100 #### [facility] [address] [place], [address] GAP Normal 5-15 [facility] Comment on above: Order Comment: 134 Result Comment: QNS UTO X1 Performed By: #### L 500.4050, L506.1000, L501.9985, L100.0100 #### [facility] [address] [place], [address] GLU Normal 70-99 [facility] Comment on above: Order Comment: 134 Result Comment: QNS UTO X1 Performed By: #### L 500.4050, L506.1000, L501.9985, L100.0100 #### [facility] [address] [place], [address] Potassium Normal 3.3-5.1 [facility] Comment on above: Order Comment: 134 Result Comment: QNS UTO X1 Performed By: #### L 500.4050, L506.1000, L501.9985, L100.0100 #### [facility] [address] [place], [address] Basic Metabolic Profile (BMP) Normal 133-145 [facility] Comment on above: Order Comment: 134 Result Comment: QNS UTO X1 Performed By: #### L 500.4050, L506.1000, L501.9985, L100.0100 #### [facility] [address] [place], [address] CBC W/Diff, Automatedon 06-0 -2024 Absolute Neut Normal 2.0-7.7 [facility] Comment on above: Order Comment: 134 Result Comment: QNS UTO X1 Performed By: #### L 500.4050, L506.1000, L501.9985, L100.0100 #### [facility] [address] [place], [address] HCT Normal 37-47 [facility] Comment on above: Order Comment: 134 Result Comment: QNS UTO X1 Performed By: #### L 500.4050, L506.1000, L501.9985, L100.0100 #### [facility] [address] [place], [address] HGB Normal 12.0-15.0 [facility] Comment on above: Order Comment: 134 Result Comment: QNS UTO X1 Performed By: #### L 500.4050, L506.1000, L501.9985, L100.0100 #### [facility] [address] [place], [address] MCH Normal 27.0-32.0 [facility] Comment on above: Order Comment: 134 Result Comment: QNS UTO X1 Performed By: #### L 500.4050, L506.1000, L501.9985, L100.0100 #### [facility] [address] [place], [address] MCHC Normal 32-36 [facility] Comment on above: Order Comment: 134 Result Comment: QNS UTO X1 Performed By: #### L 500.4050, L506.1000, L501.9985, L100.0100 #### [facility] [address] [place], [address] MCV Normal 81-99 [facility] Comment on above: Order Comment: 134 Result Comment: QNS UTO X1 Performed By: #### L 500.4050, L506.1000, L501.9985, L100.0100 #### [facility] [address] [place], [address] NEUT% Normal 47-70 [facility] Comment on above: Order Comment: 134 Result Comment: QNS UTO X1 Performed By: #### L 500.4050, L506.1000, L501.9985, L100.0100 #### [facility] [address] [place], [address] PLT Normal 150-450 [facility] Comment on above: Order Comment: 134 Result Comment: QNS UTO X1 Performed By: #### L 500.4050, L506.1000, L501.9985, L100.0100 #### [facility] [address] [place], [address] RBC Normal 4.2-5.4 [facility] Comment on above: Order Comment: 134 Result Comment: QNS UTO X1 Performed By: #### L 500.4050, L506.1000, L501.9985, L100.0100 #### [facility] [address] [place], [address] RDW CV Normal 11.6-14.6 [facility] Comment on above: Order Comment: 134 Result Comment: QNS UTO X1 Performed By: #### L 500.4050, L506.1000, L501.9985, L100.0100 #### [facility] [address] [place], [address] RDW SD Normal 35.1-43.9 [facility] Comment on above: Order Comment: 134 Result Comment: QNS UTO X1 Performed By: #### L 500.4050, L506.1000, L501.9985, L100.0100 #### [facility] [address] [place], [address] WBC Normal 4.4-11.0 [facility] Comment on above: Order Comment: 134 Result Comment: QNS UTO X1 Performed By: #### L 500.4050, L506.1000, L501.9985, L100.0100 #### [facility] [address] [place], [address] Lamotrigine (Lamictal) Level on 11-02-2024 LAMOTRIGINE 8.5 ug/mL Normal 2.0-20.0 [facility] Comment on above: Order Comment: 134 Result Comment: Dete ction Limit = 1.0 Performed at: [address] [id number] [employer]: Cody Llanos MD, Phone: [phone] Performed By: #### L 500.4050, L506.1000, L501.9985, L100.0100 #### [facility] [address] [place], [address] Trileptal-Oxcarbazepineon OXCARBAZEPINE 5 ug/mL Low 10-35 [facility] Comment on above: Order Comment: 134 Result Comment: This test was developed and its performance characteristics determined by [facility]. It has not been cleared or approved by the Food and Drug Administration. Detection Limit = 1 Performed By: #### L 500.4050, L506.1000, L501.9985, L100.0100 #### [facility] [address] [place], [address] CRPon 11-01-2024 C-REACTIVE PROT 14.10 mg/L High 0.0-3.0 [facility] Comment on above: Performed By: #### L 501.6710, L501.1400 #### [facility] [address] [place], [address] Uric Acidon 11-01-2024 URIC 5.6 mg/dL Normal 2.6-6.0 [facility] Comment on above: Result Comment: The drugs N-Acetylcysteine and Metamizole may falsely depress this assay. Performed By: #### L 501.6710, L501.1400 #### [facility] [address] [place], [address] Hemoglobin A1con 10-30-2024 HbA1c (Bld) [Mass fraction] 7.1 % High <=5.6 [facility] Comment on above: Order Comment: 134 Result Comment: Norm al < 5.7 % Prediabetic 5.7 - 6.4 % Diabetic >or= 6.5 % Please note range changes. Performed By: #### L 500.4050, L506.1000, L501.9985, L100.0100 #### [facility] [address] [place], [address] Lipid Profileon 10-30-2024 CHOL:HDL 1.80 Normal [facility] Comment on above: Order Comment: 134 Performed By: #### L 500.4050, L506.1000, L501.9985, L100.0100 #### [facility] [address] [place], [address] Cholesterol [Mass/Vol] 99 mg/dL Normal <=200 [facility] Comment on above: Order Comment: 134 Result Comment: Chol esterol level, Desirable <200 mg/dL Borderline high cholesterol 200-239 mg/dL High cholesterol >=240 mg/dL Recommendations of the NCEP Adult Treatment Panel for the following risk-cutoff thresholds for the [place] population. Performed By: #### L 500.4050, L506.1000, L501.9985, L100.0100 #### [facility] [address] [place], [address] Cholesterol in HDL [Mass/Vol] 55 mg/dL Normal [facility] Comment on above: Order Comment: 134 Result Comment: Linda onal Cholesterol Education Program (NCEP) guidelines: <40 mg/dL: Low HDL-cholesterol (major risk factor for CHD) >= 60 mg/dL: High HDL-cholesterol (negative risk factor for CHD) HDL-cholesterol is affected by a number of factors, e.g. smoking, exercise, hormones, sex and age. Performed By: #### L 500.4050, L506.1000, L501.9985, L100.0100 #### [facility] [address] [place], [address] Cholesterol in LDL [Mass/Vol] 34 mg/dL Normal [facility] Comment on above: Order Comment: 134 Result Comment: Bord hehtos=654-263 mg/dL Higher Qfld=895 mg/dL or greater Performed By: #### L 500.4050, L506.1000, L501.9985, L100.0100 #### [facility] [address] [place], [address] Cholesterol in VLDL [Mass/Vol] 10 mg/dL Normal 5-40 [facility] Comment on above: Order Comment: 134 Performed By: #### L 500.4050, L506.1000, L501.9985, L100.0100 #### [facility] [address] [place], [address] Triglyceride [Mass/Vol] 51 mg/dL Normal [facility] Comment on above: Order Comment: 134 Result Comment: The drugs N-Acetylcysteine and Metamizole may falsely depress this assay. Normal range: <150 mg/dL Borderline High: 150-199 mg/dL High: 200-499 mg/dL Very High: >500 mg/dL Performed By: #### L 500.4050, L506.1000, L501.9985, L100.0100 #### [facility] [address] [place], [address] Vitamin D,25 Hydroxyon 10-30 Vitamin D 25-OH 22.0 ng/mL Low 30-100 [facility] Comment on above: Order Comment: 134 Result Comment: Maricarmen min D Status Deficiency: <20 ng/mL (50nmol/L) Insufficiency: 20-30 ng/mL (50-75 nmol/L) Sufficiency: 30-100 ng/mL (75-250 nmol/L) Toxicity: >100 ng/mL (>250 nmol/L) Performed By: #### L 500.4050, L506.1000, L501.9985, L100.0100 #### [facility] [address] [place], [address] CBC-Complete Blood Cnt No Di ffon 10-25-2024 Erythrocyte distribution width (RBC) [Ratio] 15.7 % High 11.6-14.6 [facility] Comment on above: Order Comment: 134 Performed By: #### L 500.4050, L506.1000, L501.9985, L100.0100 #### [facility] [address] [place], [address] Hematocrit (Bld) [Volume fraction] 39.5 % Normal 37-47 [facility] Comment on above: Order Comment: 134 Performed By: #### L 500.4050, L506.1000, L501.9985, L100.0100 #### [facility] [address] [place], [address] Hemoglobin (Bld) [Mass/Vol] 13.0 g/dL Normal 12.0-15.0 [facility] Comment on above: Order Comment: 134 Performed By: #### L 500.4050, L506.1000, L501.9985, L100.0100 #### [facility] [address] [place], [address] MCH (RBC) [Entitic mass] 29.1 pg Normal 27.0-32.0 [facility] Comment on above: Order Comment: 134 Performed By: #### L 500.4050, L506.1000, L501.9985, L100.0100 #### [facility] [address] [place], [address] MCHC (RBC) [Mass/Vol] 32.9 g/dL Normal 32-36 [facility] Comment on above: Order Comment: 134 Performed By: #### L 500.4050, L506.1000, L501.9985, L100.0100 #### [facility] [address] [place], [address] MCV (RBC) [Entitic vol] 88.4 fL Normal 81-99 [facility] Comment on above: Order Comment: 134 Performed By: #### L 500.4050, L506.1000, L501.9985, L100.0100 #### [facility] [address] [place], [address] Platelet mean volume (Bld) [Entitic vol] 11.9 fL Normal 6.2-12.0 [facility] Comment on above: Order Comment: 134 Performed By: #### L 500.4050, L506.1000, L501.9985, L100.0100 #### [facility] [address] [place], [address] Platelets (Bld) [#/Vol] 104 10*3/uL Low 150-450 [facility] Comment on above: Order Comment: 134 Performed By: #### L 500.4050, L506.1000, L501.9985, L100.0100 #### [facility] [address] [place], [address] RBC (Bld) [#/Vol] 4.47 10*6/uL Normal 4.2-5.4 [facility] Comment on above: Order Comment: 134 Performed By: #### L 500.4050, L506.1000, L501.9985, L100.0100 #### [facility] [address] [place], [address] RDW SD 51.5 fl High 35.1-43.9 [facility] Comment on above: Order Comment: 134 Performed By: #### L 500.4050, L506.1000, L501.9985, L100.0100 #### [facility] [address] [place], [address] WBC (Bld) [#/Vol] 6.3 10*3/uL Normal 4.4-11.0 [facility] Comment on above: Order Comment: 134 Performed By: #### L 500.4050, L506.1000, L501.9985, L100.0100 #### [facility] [address] [place], [address] Comprehensive Metabolic Prof [facility] 10-25-2024 Albumin [Mass/Vol] 3.8 g/dL Normal 3.4-4.8 [facility] Comment on above: Order Comment: 134 Performed By: #### L 500.4050, L506.1000, L501.9985, L100.0100 #### [facility] [address] [place], [address] Albumin/Globulin [Mass ratio] 0.9 {ratio} Normal 0.9-2.4 [facility] Comment on above: Order Comment: 134 Performed By: #### L 500.4050, L506.1000, L501.9985, L100.0100 #### [facility] [address] [place], [address] ALK PHOS 117 U/L High 35-104 [facility] Comment on above: Order Comment: 134 Performed By: #### L 500.4050, L506.1000, L501.9985, L100.0100 #### [facility] [address] [place], [address] ALT [Catalytic activity/Vol] 37 U/L High <=34 [facility] Comment on above: Order Comment: 134 Performed By: #### L 500.4050, L506.1000, L501.9985, L100.0100 #### [facility] [address] [place], [address] AST [Catalytic activity/Vol] 44 U/L High <=31 [facility] Comment on above: Order Comment: 134 Performed By: #### L 500.4050, L506.1000, L501.9985, L100.0100 #### [facility] [address] [place], [address] Bilirubin [Mass/Vol] 0.50 mg/dL Normal 0.00-1.30 [facility] Comment on above: Order Comment: 134 Performed By: #### L 500.4050, L506.1000, L501.9985, L100.0100 #### [facility] [address] [place], [address] BUN/CRE 25.5 RATIO High 10-20 [facility] Comment on above: Order Comment: 134 Performed By: #### L 500.4050, L506.1000, L501.9985, L100.0100 #### [facility] [address] [place], [address] Calcium [Mass/Vol] 9.4 mg/dL Normal 7.6-11.0 [facility] Comment on above: Order Comment: 134 Performed By: #### L 500.4050, L506.1000, L501.9985, L100.0100 #### [facility] [address] [place], [address] Chloride [Moles/Vol] 101 mmol/L Normal 98-108 [facility] Comment on above: Order Comment: 134 Performed By: #### L 500.4050, L506.1000, L501.9985, L100.0100 #### [facility] [address] [place], [address] CO2 [Moles/Vol] 23.5 mmol/L Normal 21.0-32.0 [facility] Comment on above: Order Comment: 134 Performed By: #### L 500.4050, L506.1000, L501.9985, L100.0100 #### [facility] [address] [place], [address] Creatinine [Mass/Vol] 0.93 mg/dL Normal 0.70-1.20 [facility] Comment on above: Order Comment: 134 Performed By: #### L 500.4050, L506.1000, L501.9985, L100.0100 #### [facility] [address] [place], [address] GAP 10 Normal 5-15 [facility] Comment on above: Order Comment: 134 Performed By: #### L 500.4050, L506.1000, L501.9985, L100.0100 #### [facility] [address] [place], [address] GFR/1.73 sq M.predicted among non-blacks MDRD (S/P/Bld) [Vol rate/Area] 65 mL/min/{1.73_m2} Normal >60 [facility] Comment on above: Order Comment: 134 Result Comment: mL/m in/1.73m2 CKD-EPI Creatinine Equation (2020) Performed By: #### L 500.4050, L506.1000, L501.9985, L100.0100 #### [facility] [address] [place], [address] Globulin (S) [Mass/Vol] 4.4 g/dL High 2.2-4.2 [facility] Comment on above: Order Comment: 134 Performed By: #### L 500.4050, L506.1000, L501.9985, L100.0100 #### [facility] [address] [place], [address] Glucose [Mass/Vol] 147 mg/dL High 70-99 [facility] Comment on above: Order Comment: 134 Performed By: #### L 500.4050, L506.1000, L501.9985, L100.0100 #### [facility] [address] [place], [address] Potassium [Moles/Vol] 4.7 mmol/L Normal 3.3-5.1 [facility] Comment on above: Order Comment: 134 Performed By: #### L 500.4050, L506.1000, L501.9985, L100.0100 #### [facility] [address] [place], [address] Sodium [Moles/Vol] 134 mmol/L Normal 133-145 [facility] Comment on above: Order Comment: 134 Performed By: #### L 500.4050, L506.1000, L501.9985, L100.0100 #### [facility] [address] [place], [address] T PROT 8.2 g/dL Normal 5.9-8.4 [facility] Comment on above: Order Comment: 134 Performed By: #### L 500.4050, L506.1000, L501.9985, L100.0100 #### [facility] [address] [place], [address] Urea nitrogen [Mass/Vol] 24 mg/dL High 4-19 [facility] Comment on above: Order Comment: 134 Performed By: #### L 500.4050, L506.1000, L501.9985, L100.0100 #### [facility] [address] [place], [address] Urine Cultureon 10-14-2024 [facility] Urine Culture Urine Culture Escherichia coli [place] Count 80,000-100,000 Escherichia coli: REACTION Ampicillin Islt [...] TMP SMX Islt TRANG <=20 S Normal [facility] Comment on above: Performed By: #### L 501.080 #### [facility] [facility] [place], [address] Basic Metabolic Profile (BMP )on 10-12-2024 BUN Normal 4-19 [facility] Comment on above: Result Comment: Canc elled via OM: Order cancelled - Patient discharged Performed By: #### L 500.4050, L506.1000, L501.9985, L100.0100 #### [facility] [address] [facility] [place], [address] BUN/CRE Normal 10-20 [facility] Comment on above: Result Comment: Canc elled via OM: Order cancelled - Patient discharged Performed By: #### L 500.4050, L506.1000, L501.9985, L100.0100 #### [facility] [address] [place], [address] Calcium Normal 7.6-11.0 [facility] Comment on above: Result Comment: Canc elled via OM: Order cancelled - Patient discharged Performed By: #### L 500.4050, L506.1000, L501.9985, L100.0100 #### [facility] [address] [place], [address] CL Normal 98-108 [facility] Comment on above: Result Comment: Canc elled via OM: Order cancelled - Patient discharged Performed By: #### L 500.4050, L506.1000, L501.9985, L100.0100 #### [facility] [address] [place], [address] CO2 Normal 21.0-32.0 [facility] Comment on above: Result Comment: Canc elled via OM: Order cancelled - Patient discharged Performed By: #### L 500.4050, L506.1000, L501.9985, L100.0100 #### [facility] [address] [place], [address] CREAT,SERUM Normal 0.70-1.20 [facility] Comment on above: Result Comment: Canc elled via OM: Order cancelled - Patient discharged Performed By: #### L 500.4050, L506.1000, L501.9985, L100.0100 #### [facility] [address] [place], [address] eGFR Normal >60 [facility] Comment on above: Result Comment: Canc elled via OM: Order cancelled - Patient discharged Performed By: #### L 500.4050, L506.1000, L501.9985, L100.0100 #### [facility] [address] [place], [address] GAP Normal 5-15 [facility] Comment on above: Result Comment: Canc elled via OM: Order cancelled - Patient discharged Performed By: #### L 500.4050, L506.1000, L501.9985, L100.0100 #### [facility] [address] [place], [address] GLU Normal 70-99 [facility] Comment on above: Result Comment: Canc elled via OM: Order cancelled - Patient discharged Performed By: #### L 500.4050, L506.1000, L501.9985, L100.0100 #### [facility] [address] [place], [address] Potassium Normal 3.3-5.1 [facility] Comment on above: Result Comment: Canc elled via OM: Order cancelled - Patient discharged Performed By: #### L 500.4050, L506.1000, L501.9985, L100.0100 #### [facility] [address] [place], [address] Basic Metabolic Profile (BMP) Normal 133-145 [facility] Comment on above: Result Comment: Canc elled via OM: Order cancelled - Patient discharged Performed By: #### L 500.4050, L506.1000, L501.9985, L100.0100 #### [facility] [address] [place], [address] CBC W/Diff, Automatedon 05-0 -2024 Absolute Neut Normal 2.0-7.7 [facility] Comment on above: Result Comment: Canc elled via OM: Order cancelled - Patient discharged Performed By: #### L 500.4050, L506.1000, L501.9985, L100.0100 #### [facility] [address] [place], [address] HCT Normal 37-47 [facility] Comment on above: Result Comment: Canc elled via OM: Order cancelled - Patient discharged Performed By: #### L 500.4050, L506.1000, L501.9985, L100.0100 #### [facility] [address] [place], [address] HGB Normal 12.0-15.0 [facility] Comment on above: Result Comment: Canc elled via OM: Order cancelled - Patient discharged Performed By: #### L 500.4050, L506.1000, [id number], L100.0100 #### [facility] [address] [place], [address] MCH Normal 27.0-32.0 [facility] Comment on above: Result Comment: Canc elled via OM: Order cancelled - Patient discharged Performed By: #### L 500.4050, L506.1000, L501.9985, L100.0100 #### [facility] [address] [place], [address] MCHC Normal 32-36 [facility] Comment on above: Result Comment: Canc elled via OM: Order cancelled - Patient discharged Performed By: #### L 500.4050, L506.1000, [id number], L100.0100 #### [facility] [address] [place], [address] MCV Normal 81-99 [facility] Comment on above: Result Comment: Canc elled via OM: Order cancelled - Patient discharged Performed By: #### L 500.4050, L506.1000, L501.9985, L100.0100 #### [facility] [address] [place], [address] NEUT% Normal 47-70 [facility] Comment on above: Result Comment: Canc elled via OM: Order cancelled - Patient discharged Performed By: #### L 500.4050, L506.1000, L501.9985, L100.0100 #### [facility] [address] [place], [address] PLT Normal 150-450 [facility] Comment on above: Result Comment: Canc elled via OM: Order cancelled - Patient discharged Performed By: #### L 500.4050, L506.1000, L501.9985, L100.0100 #### [facility] [address] [place], [address] RBC Normal 4.2-5.4 [facility] Comment on above: Result Comment: Canc elled via OM: Order cancelled - Patient discharged Performed By: #### L 500.4050, L506.1000, L501.9985, L100.0100 #### [facility] [address] [place], [address] RDW CV Normal 11.6-14.6 [facility] Comment on above: Result Comment: Canc elled via OM: Order cancelled - Patient discharged Performed By: #### L 500.4050, L506.1000, L501.9985, L100.0100 #### [facility] [address] [place], [address] RDW SD Normal 35.1-43.9 [facility] Comment on above: Result Comment: Canc elled via OM: Order cancelled - Patient discharged Performed By: #### L 500.4050, L506.1000, L501.9985, L100.0100 #### [facility] [address] [place], [address] WBC Normal 4.4-11.0 [facility] Comment on above: Result Comment: Canc elled via OM: Order cancelled - Patient discharged Performed By: #### L 500.4050, L506.1000, L501.9985, L100.0100 #### [facility] [address] [place], [address] Absolute lymphocyte countOrd ered By: Tyrell Page on 10-11-2024 Lymphocytes Auto (Unsp spec) [#/Vol] 1.20 10*3/uL 0.83-4.51 [facility] Absolute neutrophil countOrd ered By: Tyrell Page on 10-11-2024 Neutrophils (Bld) [#/Vol] 2.6 10*3/uL 2.0-7.7 [facility] Anion gap in Serum or Plasma Ordered By: Tyrell Page on 10-11-2024 Anion gap [Moles/Vol] 10 mmol/L 5-15 [facility] Automated lymphocyte count a s percentage of total leukocytesOrdered By: Tyrell Page on 10-11-2024 Lymphocytes/100 WBC Auto (Unsp spec) 26.8 % 19-41 [facility] BUN/creatinine ratioOrdered By: Tyrell Page on 10-11-2024 Urea nitrogen/Creatinine [Mass ratio] 28.3 mg/mg High 10-20 [facility] Basic Metabolic Profile (BMP )on 10-11-2024 BUN/CRE 28.3 RATIO High - [facility] Comment on above: Performed By: #### L 500.4050, L506.1000, L501.9985, L100.0100 #### [facility] [address] [place], [address] Calcium [Mass/Vol] 9.2 mg/dL Normal 7.6-11.0 [facility] Comment on above: Performed By: #### L 500.4050, L506.1000, L501.9985, L100.0100 #### [facility] [address] [place], [address] Chloride [Moles/Vol] 108 mmol/L Normal 98-108 [facility] Comment on above: Performed By: #### L 500.4050, L506.1000, L501.9985, L100.0100 #### [facility] [address] [place], [address] CO2 [Moles/Vol] 20.7 mmol/L Low 21.0-32.0 [facility] Comment on above: Performed By: #### L 500.4050, L506.1000, L501.9985, L100.0100 #### [facility] [address] [place], [address] Creatinine [Mass/Vol] 0.76 mg/dL Normal 0.70-1.20 [facility] Comment on above: Performed By: #### L 500.4050, L506.1000, L501.9985, L100.0100 #### [facility] [address] [place], [address] ECRCL 89.89 ml/min Normal 50-250 [facility] Comment on above: Performed By: #### L 500.4050, L506.1000, L501.9985, L100.0100 #### [facility] [address] [place], [address] GAP 10 Normal 5-15 [facility] Comment on above: Performed By: #### L 500.4050, L506.1000, L501.9985, L100.0100 #### [facility] [address] [place], [address] GFR/1.73 sq M.predicted among non-blacks MDRD (S/P/Bld) [Vol rate/Area] 84 mL/min/{1.73_m2} Normal >60 [facility] Comment on above: Result Comment: mL/m in/1.73m2 CKD-EPI Creatinine Equation (2020) Performed By: #### L 500.4050, L506.1000, L501.9985, L100.0100 #### [facility] [address] [place], [address] Glucose [Mass/Vol] 131 mg/dL High 70-99 [facility] Comment on above: Performed By: #### L 500.4050, L506.1000, L501.9985, L100.0100 #### [facility] [address] [place], [address] Potassium [Moles/Vol] 3.9 mmol/L Normal 3.3-5.1 [facility] Comment on above: Performed By: #### L 500.4050, L506.1000, L501.9985, L100.0100 #### [facility] [address] [place], [address] Sodium [Moles/Vol] 139 mmol/L Normal 133-145 [facility] Comment on above: Performed By: #### L 500.4050, L506.1000, L501.9985, L100.0100 #### [facility] [address] [place], [address] Urea nitrogen [Mass/Vol] 21 mg/dL High 4-19 [facility] Comment on above: Performed By: #### L 500.4050, L506.1000, L501.9985, L100.0100 #### [facility] [address] [place], [address] Basophil percentageOrdered B y: Tyrell Page on 10-11-2024 Basophils/100 WBC (Bld) 0.7 % 0-1 [facility] Bedside Glucoseon 10-11-2024 FINGERSTICK GLU 137 mg/dL High 74-106 [facility] Comment on above: Result Comment: ALINA ADAMSENT OF PATIENT CARE PER NURSING PROTOCOL Performed By: #### L 500.4050, L506.1000, L501.9985, L100.0100 #### [facility] [address] [place], [address] CBC W/Diff, Automatedon 050 PLT EST SLT DEC Normal ADEQ [facility] Comment on above: Performed By: #### L 500.4050, L506.1000, L501.9985, L100.0100 #### [facility] [address] [place], [address] Carbon dioxide, total [Moles /volume] in Central venous bloodOrdered By: Tyrell Page on 10-11-2024 CO2 [Moles/Vol] 20.7 mmol/L Low 21.0-32.0 [facility] Chloride assayOrdered By: Arabella Page on 10-11-2024 Chloride [Moles/Vol] 108 mmol/L 98-108 [facility] Eosinophil percentageOrdered By: Tyrell aPge on 10-11-2024 Eosinophils/100 WBC (Bld) 5.1 % High 0-5 [facility] Erythrocyte distribution wid th ratioOrdered By: Tyrell Page on 10-11-2024 Erythrocyte distribution width (RBC) [Ratio] 16.0 % High 11.6-14.6 [facility] Erythrocyte distribution wid th standard deviationOrdered By: Tyrell Page on 10-11-2024 Erythrocyte distribution width (RBC) [Ratio] 50.8 fl High 35.1-43.9 [facility] Glomerular filtration rate ( GFR) estimation/1.73 sq m using serum, plasma, or whole bOrdered By: Tyrell Page on 10-11-2024 GFR/1.73 sq M.predicted among non-blacks MDRD (S/P/Bld) [Vol rate/Area] 84 mL/min/{1.73_m2} >60 [facility] Comment on above: mL/min/1.73m2 CKD-EP I Creatinine Equation (2020) [facility] deOrdered By: Tyrell Page on 10-11-2024 Glucose [Mass/Vol] 137 mg/dL High 74-106 [facility] Comment on above: MANAGEMENT OF PATIEN T CARE PER NURSING PROTOCOL Hematocrit Auto (Bld) [Volum e fraction]Ordered By: Tyrell Page on 10-11-2024 Hematocrit (Bld) [Volume fraction] 34.0 % Low 37-47 [facility] Hemoglobin measurementOrdere d By: Tyrell Page on 10-11-2024 Hemoglobin (Bld) [Mass/Vol] 11.3 g/dL Low 12.0-15.0 [facility] Immature granulocytes/100 WB C Auto (Bld)Ordered By: Tyrell Page on 10-11-2024 Immature granulocytes/100 WBC (Bld) 0.200 % 0.0-0.9 [facility] Comment on above: IG% - Immature Granu locytes (promyelocytes, myelocytes and metamyelocytes) > 1% indicates that a LEFT SHIFT is Present. MCV (mean corpuscular volume ) determinationOrdered By: Tyrell Page on 10-11-2024 MCV (RBC) [Entitic vol] 86.7 fL 81-99 [facility] Magnesiumon 10-11-2024 Magnesium [Mass/Vol] 2.1 mg/dL Normal 1.5-2.2 [facility] Comment on above: Performed By: #### L 506.0200 #### [facility] [address] [place], [place], [address] Magnesium measurement (mass/ volume)Ordered By: Tyrell Page on 10-11-2024 Magnesium (Unsp spec) [Mass/Vol] 2.1 mg/dL 1.5-2.2 [facility] Mean corpuscular hemoglobin (MCH) determinationOrdered By: Tyrell Page on 10-11-2024 MCH (RBC) [Entitic mass] 28.8 pg 27.0-32.0 [facility] Mean corpuscular hemoglobin concentration (MCHC) determinationOrdered By: Tyrell Page on 10-11-2024 MCHC (RBC) [Mass/Vol] 33.2 g/dL 32-36 [facility] Mean platelet volume determi nationOrdered By: Tyrell Page on 10-11-2024 Platelet mean volume (Bld) [Entitic vol] 11.1 fL 6.2-12.0 [facility] Monocyte percentageOrdered B y: Tyrell Page on 10-11-2024 Monocytes/100 WBC (Bld) 9.8 % 0-10 [facility] Neutrophil percentageOrdered By: Tyrell Page on 10-11-2024 Neutrophils/100 WBC (Bld) 57.4 % 47-70 [facility] Nucleated red blood cell per centageOrdered By: Tyrell Page on 10-11-2024 Nucleated RBC/100 WBC (Bld) [Ratio] 0 % 0-5 [facility] Phosphoruson 10-11-2024 Phosphate [Mass/Vol] 3.7 mg/dL Normal 2.7-4.5 [facility] Comment on above: Performed By: #### L 506.0200 #### [facility] [address] [place], [place], [address] Platelet countOrdered By: Arabella Page on 10-11-2024 Platelets (Bld) [#/Vol] 95 10*3/uL Low 150-450 [facility] Platelet estimateOrdered By: Tyrell Page on 10-11-2024 Platelets LM Ql (Bld) SLT DEC ADEQ [facility] Potassium measurement (mass/ volume)Ordered By: Tyrell Page on 10-11-2024 Potassium (Unsp spec) [Mass/Vol] 3.9 mmol/L 3.3-5.1 [facility] RBC Auto (Bld) [#/Vol]Ordere d By: Tyrell Page on 10-11-2024 RBC (Bld) [#/Vol] 3.92 10*6/uL Low 4.2-5.4 [facility] Serum creatinine measurement (mass/volume)Ordered By: Tyrell Page on 10-11-2024 Creatinine [Mass/Vol] 0.76 mg/dL 0.70-1.20 [facility] Serum glucose measurement (m ass/volume)Ordered By: Tyrell Page on 10-11-2024 Glucose [Mass/Vol] 131 mg/dL High 70-99 [facility] Serum or plasma calcium kim urement (mass/volume)Ordered By: Tyrell Page on 10-11-2024 Calcium [Mass/Vol] 9.2 mg/dL 7.6-11.0 [facility] Serum or plasma urea nitroge n measurement (mass/volume)Ordered By: Tyrell Page on 10-11-2024 Urea nitrogen [Mass/Vol] 21 mg/dL High 4-19 [facility] Sodium levelOrdered By: Nikunj Page on 10-11-2024 Sodium [Moles/Vol] 139 mmol/L 133-145 [facility] White blood cell (WBC) count Ordered By: Tyrell Page on 10-11-2024 WBC (Bld) [#/Vol] 4.5 10*3/uL 4.4-11.0 [facility] Bedside Glucoseon 10-10-2024 FINGERSTICK GLU 159 mg/dL High 74-106 [facility] Comment on above: Result Comment: ALINA GABRIEL OF PATIENT CARE PER NURSING PROTOCOL Performed By: #### L 500.4050, L506.1000, L501.9985, L100.0100 #### [facility] [address] [place], [address] FINGERSTICK GLU 196 mg/dL High 74-106 [facility] Comment on above: Result Comment: ALINA GEMENT OF PATIENT CARE PER NURSING PROTOCOL Performed By: #### L 500.4050, L506.1000, L501.9985, L100.0100 #### [facility] [address] [place], [address] FINGERSTICK GLU 165 mg/dL High 74-106 [facility] Comment on above: Result Comment: ALINA GEMENT OF PATIENT CARE PER NURSING PROTOCOL Performed By: #### L 501.080 #### [facility] [address] [place], [address] FINGERSTICK GLU 159 mg/dL High -106 [facility] Comment on above: Result Comment: ALINA GEMENT OF PATIENT CARE PER NURSING PROTOCOL Performed By: #### L 500.4050, L506.1000, L501.9985, L100.0100 #### [facility] [address] [place], [address] FINGERSTICK GLU 148 mg/dL High 74-106 [facility] Comment on above: Result Comment: ALINA GEMENT OF PATIENT CARE PER NURSING PROTOCOL Performed By: #### L 501.080 #### [facility] [address] [place], [address] Bilirubin, totalOrdered By: Missael Lomeli on 10-10-2024 Bilirubin [Mass/Vol] 0.68 mg/dL 0.00-1.30 [facility] CBC W/Diff, Automatedon 050 Absolute Lymph 1.03 X10 3/uL Normal 0.83-4.51 [facility] Comment on above: Performed By: #### L 506.0200 #### [facility] [address] [place], [address] Absolute Neut 3.4 X10 3/uL Normal 2.0-7.7 [facility] Comment on above: Performed By: #### L 506.0200 #### [facility] [address] [place], [address] Basophils/100 WBC (Bld) 0.6 % Normal 0-1 [facility] Comment on above: Performed By: #### L 506.0200 #### [facility] [address] [place], [address] Eosinophils/100 WBC (Bld) 5.1 % High 0-5 [facility] Comment on above: Performed By: #### L 506.0200 #### [facility] [address] [place], [address] Erythrocyte distribution width (RBC) [Ratio] 15.9 % High 11.6-14.6 [facility] Comment on above: Performed By: #### L 506.0200 #### [facility] [address] [place], [address] Hematocrit (Bld) [Volume fraction] 37.6 % Normal 37-47 [facility] Comment on above: Performed By: #### L 506.0200 #### [facility] [address] [place], [address] Hemoglobin (Bld) [Mass/Vol] 12.3 g/dL Normal 12.0-15.0 [facility] Comment on above: Performed By: #### L 506.0200 #### [facility] [address] [place], [address] IG% 0.200 Normal 0.0-0.9 [facility] Comment on above: Result Comment: IG% - Immature Granulocytes (promyelocytes, myelocytes and metamyelocytes) > 1% indicates that a LEFT SHIFT is Present. Performed By: #### L 506.0200 #### [facility] [address] [place], [address] Lymphocytes/100 WBC (Bld) 19.6 % Normal 19-41 [facility] Comment on above: Performed By: #### L 506.0200 #### [facility] [address] [place], [address] MCH (RBC) [Entitic mass] 28.8 pg Normal 27.0-32.0 [facility] Comment on above: Performed By: #### L 506.0200 #### [facility] [address] [place], [address] MCHC (RBC) [Mass/Vol] 32.7 g/dL Normal 32-36 [facility] Comment on above: Performed By: #### L 506.0200 #### [facility] [address] [place], [address] MCV (RBC) [Entitic vol] 88.1 fL Normal 81-99 [facility] Comment on above: Performed By: #### L 506.0200 #### [facility] [address] [place], [address] Monocytes/100 WBC (Bld) 9.1 % Normal 0-10 [facility] Comment on above: Performed By: #### L 506.0200 #### [facility] [address] [place], [address] Neutrophils/100 WBC (Bld) 65.4 % Normal 47-70 [facility] Comment on above: Performed By: #### L 506.0200 #### [facility] [address] [place], [address] Nucleated RBC (Bld) [#/Vol] 0 10*3/uL Normal 0-5 [facility] Comment on above: Performed By: #### L 506.0200 #### [facility] [address] [place], [address] Platelet mean volume (Bld) [Entitic vol] 11.7 fL Normal 6.2-12.0 [facility] Comment on above: Performed By: #### L 506.0200 #### [facility] [address] [place], [address] Platelets (Bld) [#/Vol] 100 10*3/uL Low 150-450 [facility] Comment on above: Performed By: #### L 506.0200 #### [facility] [address] [place], [address] RBC (Bld) [#/Vol] 4.27 10*6/uL Normal 4.2-5.4 [facility] Comment on above: Performed By: #### L 506.0200 #### [facility] [address] [place], [address] RDW SD 51.4 fl High 35.1-43.9 [facility] Comment on above: Performed By: #### L 506.0200 #### [facility] [address] [place], [address] WBC (Bld) [#/Vol] 5.3 10*3/uL Normal 4.4-11.0 [facility] Comment on above: Performed By: #### L 506.0200 #### [facility] [address] [place], [address] Calculated very low density lipoprotein (VLDL) cholesterol measurementOrdered By: Missael Lomeli on 10-10-2024 Calculated very low density lipoprotein (VLDL) cholesterol measurement 16 mg/dL 5-40 [facility] Comprehensive Metabolic Prof ilon 10-10-2024 Albumin [Mass/Vol] 3.5 g/dL Normal 3.4-4.8 [facility] Comment on above: Performed By: #### L 503.0106 #### [facility] [address] [place], [address] Albumin/Globulin [Mass ratio] 1.0 {ratio} Normal 0.9-2.4 [facility] Comment on above: Performed By: #### L 503.0106 #### [facility] [address] [place], [address] ALK PHOS 122 U/L High 35-104 [facility] Comment on above: Performed By: #### L 503.0106 #### [facility] [address] [place], [address] ALT [Catalytic activity/Vol] 23 U/L Normal <=34 [facility] Comment on above: Performed By: #### L 503.0106 #### [facility] [address] [place], [address] AST [Catalytic activity/Vol] 37 U/L High <=31 [facility] Comment on above: Result Comment: Hemo lysis present, Results??could be affected. ?? Performed By: #### L 503.0106 #### [facility] [address] [place], [address] Bilirubin [Mass/Vol] 0.68 mg/dL Normal 0.00-1.30 [facility] Comment on above: Performed By: #### L 503.0106 #### [facility] [address] [place], [address] BUN/CRE 25.4 RATIO High 10-20 [facility] Comment on above: Performed By: #### L 503.0106 #### [facility] [address] [place], [address] Calcium [Mass/Vol] 8.9 mg/dL Normal 7.6-11.0 [facility] Comment on above: Performed By: #### L 503.0106 #### [facility] [address] [place], [address] Chloride [Moles/Vol] 106 mmol/L Normal 98-108 [facility] Comment on above: Performed By: #### L 503.0106 #### [facility] [address] [place], [address] CO2 [Moles/Vol] 19.0 mmol/L Low 21.0-32.0 [facility] Comment on above: Performed By: #### L 503.0106 #### [facility] [address] [place], [address] Creatinine [Mass/Vol] 0.78 mg/dL Normal 0.70-1.20 [facility] Comment on above: Performed By: #### L 503.0106 #### [facility] [address] [place], [address] ECRCL 88.83 ml/min Normal 50-250 [facility] Comment on above: Performed By: #### L 503.0106 #### [facility] [address] [place], [address] GAP 13 Normal 5-15 [facility] Comment on above: Performed By: #### L 503.0106 #### [facility] [address] [place], [address] GFR/1.73 sq M.predicted among non-blacks MDRD (S/P/Bld) [Vol rate/Area] 81 mL/min/{1.73_m2} Normal >60 [facility] Comment on above: Result Comment: mL/m in/1.73m2 CKD-EPI Creatinine Equation (2020) Performed By: #### L 503.0106 #### [facility] [address] [place], [address] Globulin (S) [Mass/Vol] 3.7 g/dL Normal 2.2-4.2 [facility] Comment on above: Performed By: #### L 503.0106 #### [facility] [address] [place], [address] Glucose [Mass/Vol] 151 mg/dL High 70-99 [facility] Comment on above: Performed By: #### L 503.0106 #### [facility] [address] [place], [address] Potassium [Moles/Vol] 4.3 mmol/L Normal 3.3-5.1 [facility] Comment on above: Result Comment: Hemo lysis present, Results??could be affected. ?? Performed By: #### L 503.0106 #### [facility] [address] [place], [address] Sodium [Moles/Vol] 138 mmol/L Normal 133-145 [facility] Comment on above: Performed By: #### L 503.0106 #### [facility] [address] [place], [address] T PROT 7.2 g/dL Normal 5.9-8.4 [facility] Comment on above: Performed By: #### L 503.0106 #### [facility] [address] [place], [address] Urea nitrogen [Mass/Vol] 20 mg/dL High 4-19 [facility] Comment on above: Performed By: #### L 503.0106 #### [facility] [address] [place], [address] Folate [Moles/volume] in Ser um or PlasmaOrdered By: Missael Lomeli on 10-10-2024 Folate [Moles/Vol] 7.20 ng/mL 4.60-34.80 [facility] Comment on above: Hemolysis, Results w ill be affected, Requires Recollection. Folates,Serum (Folic Acid)on 10-10-2024 FOLATES,SERUM 7.20 ng/mL Normal 4.60-34.80 [facility] Comment on above: Order Comment: N Result Comment: Hemo lysis, Results will be affected, Requires Recollection. Performed By: #### L 506.0200 #### [facility] [address] [place], [place], [id number] Hemoglobin A1con 10-10-2024 HbA1c (Bld) [Mass fraction] 7.2 % High <=5.6 [facility] Comment on above: Result Comment: Norm al < 5.7 % Prediabetic 5.7 - 6.4 % Diabetic >or= 6.5 % Please note range changes. Performed By: #### L 503.0106 #### [facility] [address] [place], [place], [id number] LDL calc ser/plasOrdered By: Missael Lomeli on 10-10-2024 Cholesterol in LDL [Mass/Vol] 31 mg/dL [facility] Comment on above: Finbwiqizw=261-345 m g/dL & Higher Dtow=588 mg/dL or greater Laboratory - Chemistry and C hemistry - challengeOrdered By: Missael Lomeli on 10-10-2024 AST [Catalytic activity/Vol] 37 U/L High <32 [facility] Comment on above: Hemolysis present, R esults could be affected. Lipid Profileon 10-10-2024 CHOL:HDL 1.84 Normal [facility] Comment on above: Performed By: #### L 506.0200 #### [facility] [address] [place], [place], [id number] (210) Cholesterol [Mass/Vol] 103 mg/dL Normal <=200 [facility] Comment on above: Result Comment: Chol esterol level, Desirable <200 mg/dL Borderline high cholesterol 200-239 mg/dL High cholesterol >=240 mg/dL Recommendations of the NCEP Adult Treatment Panel for the following risk-cutoff thresholds for the [place] population. Performed By: #### L 506.0200 #### [facility] [address] [place], [place], [id number] (804) Cholesterol in HDL [Mass/Vol] 56 mg/dL Normal [facility] Comment on above: Result Comment: Linda onal Cholesterol Education Program (NCEP) guidelines: <40 mg/dL: Low HDL-cholesterol (major risk factor for CHD) >= 60 mg/dL: High HDL-cholesterol (negative risk factor for CHD) HDL-cholesterol is affected by a number of factors, e.g. smoking, exercise, hormones, sex and age. Performed By: #### L 506.0200 #### [facility] [address] [place], [address] Cholesterol in LDL [Mass/Vol] 31 mg/dL Normal [facility] Comment on above: Result Comment: Bord uznuiz=106-815 mg/dL Higher Yxln=429 mg/dL or greater Performed By: #### L 506.0200 #### [facility] [address] [place], [address] Cholesterol in VLDL [Mass/Vol] 16 mg/dL Normal 5-40 [facility] Comment on above: Performed By: #### L 506.0200 #### [facility] [address] [place], [address] Triglyceride [Mass/Vol] 82 mg/dL Normal [facility] Comment on above: Result Comment: The drugs N-Acetylcysteine and Metamizole may falsely depress this assay. Normal range: <150 mg/dL Borderline High: 150-199 mg/dL High: 200-499 mg/dL Very High: >500 mg/dL Performed By: #### L 506.0200 #### [facility] [address] [place], [address] Phosphoruson 10-10-2024 Phosphate [Mass/Vol] 3.3 mg/dL Normal 2.7-4.5 [facility] Comment on above: Performed By: #### L 506.0200 #### [facility] [address] [place], [address] Screening total cholesterol/ high density lipoprotein (HDL) cholesterol ratioOrdered By: Missael Lomeli on 10-10-2024 Cholesterol.total/Cho lesterol in HDL [Mass ratio] 1.84 {ratio} [facility] Serum globulin measurementOr dered By: Missael Lomeli on 10-10-2024 Globulin (S) [Mass/Vol] 3.7 g/dL 2.2-4.2 [facility] Serum or plasma alanine burnette otransferase (ALT) measurementOrdered By: Missael Lomeli on 10-10-2024 ALT [Catalytic activity/Vol] 23 U/L <35 [facility] Serum or plasma albumin kim urement (mass/volume)Ordered By: Missael Lomeli on 10-10-2024 Albumin [Mass/Vol] 3.5 g/dL 3.4-4.8 [facility] Serum or plasma albumin/glob ulin mass ratioOrdered By: Missael Lomeli on 10-10-2024 Albumin/Globulin [Mass ratio] 1.0 {ratio} 0.9-2.4 [facility] Serum or plasma alkaline regina sphatase measurementOrdered By: Missael Lomeli on 10-10-2024 ALP [Catalytic activity/Vol] 122 U/L High 35-104 [facility] Serum or plasma cholesterol in HDL measurement (mass/volume)Ordered By: Missael Lomeli on 10-10-2024 Cholesterol in HDL [Mass/Vol] 56 mg/dL >40 [facility] Comment on above: National Cholesterol Education Program (NCEP) guidelines:<40 mg/dL: Low HDL-cholesterol (major risk factor for CHD)>= 60 mg/dL: High HDL-cholesterol (negative risk factor for CHD)HDL-cholesterol is affected by a number of factors, e.g. smoking, exercise, hormones, sex and age. Serum or plasma cholesterol measurement (mass/volume)Ordered By: Missael Lomeli on 10-10-2024 Cholesterol [Mass/Vol] 103 mg/dL <201 [facility] Comment on above: Cholesterol level, D esirable <200 mg/dLBorderline high cholesterol 200-239 mg/dLHigh cholesterol >=240 mg/dLRecommendations of the NCEP Adult Treatment Panel for the following risk-cutoff thresholds for the [place] population. Total proteinOrdered By: Enrrique Lomeli on 10-10-2024 Protein [Mass/Vol] 7.2 g/dL 5.9-8.4 [facility] Triglycerides measurementOrd ered By: Missael Lomeli on 10-10-2024 Triglyceride [Mass/Vol] 82 mg/dL <199 [facility] Comment on above: The drugs N-Acetylcy steine and Metamizole may falsely depress this assay. Normal range: <150 mg/dLBorderline High: 150-199 mg/dLHigh: 200-499 mg/dLVery High: >500 mg/dL Absolute lymphocyte countOrd ered By: Shayna Malhotra on 10-09-2024 Lymphocytes Auto (Unsp spec) [#/Vol] 0.97 10*3/uL 0.83-4.51 [facility] Absolute neutrophil countOrd ered By: Dany Richardson on 10-09-2024 Neutrophils (Bld) [#/Vol] 4.9 10*3/uL 2.0-7.7 [facility] Absolute neutrophil countOrd ered By: Shayna Malhotra on 10-09-2024 Neutrophils (Bld) [#/Vol] 4.4 10*3/uL 2.0-7.7 [facility] Alcohol, Blood (Medical)-Ser umon 10-09-2024 SERUM ETOH < 10.1 Normal <=10.0 [facility] Comment on above: Result Comment: This test is for medical purposes only. The legal definition of intoxication varies according to local law. Performed By: #### L 503.0106 #### [facility] [place], [address] Amorphous sediment detection in urine sediment by light microscopyOrdered By: Dany Richardson on 10-09-2024 Amorphous sediment LM Ql (Urine sed) 1+ [facility] Amphetamine detection with 1 000 ng/mL as cutoffOrdered By: Missael Lomeli on 10-09-2024 Amphetamines Screen method >1000 ng/mL Ql (U) Negative < 200 ng/mL [facility] Anion gap in Serum or Plasma Ordered By: Dany Richardson on 10-09-2024 Anion gap [Moles/Vol] 11 mmol/L 10-18 [facility] Anion gap in Serum or Plasma Ordered By: Shayna Malhotra on 10-09-2024 Anion gap [Moles/Vol] 12 mmol/L 10-18 [facility] Automated lymphocyte count a s percentage of total leukocytesOrdered By: Shayna Malhotra on 10-09-2024 Lymphocytes/100 WBC Auto (Unsp spec) 16.1 % Low 19-41 [facility] BUN/creatinine ratioOrdered By: Dany Richardson on 10-09-2024 Urea nitrogen/Creatinine [Mass ratio] 26.6 mg/mg High 10- [facility] BUN/creatinine ratioOrdered By: Shayna Malhotra on 10-09-2024 Urea nitrogen/Creatinine [Mass ratio] 25.9 mg/mg High - [facility] Basophil percentageOrdered B y: Dany Richardson on 10-09-2024 Basophils/100 WBC (Bld) 0.4 % 0-1 [facility] Basophil percentageOrdered B y: Shayna Malhotra on 10-09-2024 Basophils/100 WBC (Bld) 0.5 % 0-1 [facility] Bilirubin Test strip Ql (U)O rdered By: Dany Richardson on 10-09-2024 Bilirubin Ql (U) Negative Negative [facility] Bilirubin, totalOrdered By: Dany Richardson on 10-09-2024 Bilirubin [Mass/Vol] 0.67 mg/dL 0.00-1.30 [facility] Bilirubin, totalOrdered By: Shayna Malhotra on 10-09-2024 Bilirubin [Mass/Vol] 0.62 mg/dL 0.00-1.30 [facility] CBC W/Diff, Automatedon Absolute Lymph 1.11 X10 3/uL Normal 0.83-4.51 [facility] Comment on above: Performed By: #### L 500.4050, L506.1000, L501.9985, L100.0100 #### [facility] [address] [place], [address] Absolute Neut 4.9 X10 3/uL Normal 2.0-7.7 [facility] Comment on above: Performed By: #### L 500.4050, L506.1000, L501.9985, L100.0100 #### [facility] [address] [place], [address] Basophils/100 WBC (Bld) 0.4 % Normal 0-1 [facility] Comment on above: Performed By: #### L 500.4050, L506.1000, L501.9985, L100.0100 #### [facility] [address] [place], [address] Eosinophils/100 WBC (Bld) 2.5 % Normal 0-5 [facility] Comment on above: Performed By: #### L 500.4050, L506.1000, L501.9985, L100.0100 #### [facility] [address] [place], [address] Erythrocyte distribution width (RBC) [Ratio] 15.9 % High 11.6-14.6 [facility] Comment on above: Performed By: #### L 500.4050, L506.1000, L501.9985, L100.0100 #### [facility] [address] [place], [address] Hematocrit (Bld) [Volume fraction] 40.8 % Normal 37-47 [facility] Comment on above: Performed By: #### L 500.4050, L506.1000, L501.9985, L100.0100 #### [facility] [address] [place], [address] Hemoglobin (Bld) [Mass/Vol] 13.5 g/dL Normal 12.0-15.0 [facility] Comment on above: Performed By: #### L 500.4050, L506.1000, L501.9985, L100.0100 #### [facility] [address] [place], [address] IG% 0.400 Normal 0.0-0.9 [facility] Comment on above: Result Comment: IG% - Immature Granulocytes (promyelocytes, myelocytes and metamyelocytes) > 1% indicates that a LEFT SHIFT is Present. Performed By: #### L 500.4050, L506.1000, L501.9985, L100.0100 #### [facility] [address] [place], [address] Lymphocytes/100 WBC (Bld) 16.3 % Low 19-41 [facility] Comment on above: Performed By: #### L 500.4050, L506.1000, L501.9985, L100.0100 #### [facility] [address] [place], [address] MCH (RBC) [Entitic mass] 28.9 pg Normal 27.0-32.0 [facility] Comment on above: Performed By: #### L 500.4050, L506.1000, L501.9985, L100.0100 #### [facility] [address] [place], [address] MCHC (RBC) [Mass/Vol] 33.1 g/dL Normal 32-36 [facility] Comment on above: Performed By: #### L 500.4050, L506.1000, L501.9985, L100.0100 #### [facility] [address] [place], [address] MCV (RBC) [Entitic vol] 87.4 fL Normal 81-99 [facility] Comment on above: Performed By: #### L 500.4050, L506.1000, L501.9985, L100.0100 #### [facility] [address] [place], [address] Monocytes/100 WBC (Bld) 8.3 % Normal 0-10 [facility] Comment on above: Performed By: #### L 500.4050, L506.1000, L501.9985, L100.0100 #### [facility] [address] [place], [address] Neutrophils/100 WBC (Bld) 72.1 % High 47-70 [facility] Comment on above: Performed By: #### L 500.4050, L506.1000, L501.9985, L100.0100 #### [facility] [address] [place], [address] Nucleated RBC (Bld) [#/Vol] 0 10*3/uL Normal 0-5 [facility] Comment on above: Performed By: #### L 500.4050, L506.1000, L501.9985, L100.0100 #### [facility] [address] [place], [address] Platelet mean volume (Bld) [Entitic vol] 11.8 fL Normal 6.2-12.0 [facility] Comment on above: Performed By: #### L 500.4050, L506.1000, L501.9985, L100.0100 #### [facility] [address] [place], [address] Platelets (Bld) [#/Vol] 106 10*3/uL Low 150-450 [facility] Comment on above: Performed By: #### L 500.4050, L506.1000, L501.9985, L100.0100 #### [facility] [address] [place], [address] RBC (Bld) [#/Vol] 4.67 10*6/uL Normal 4.2-5.4 [facility] Comment on above: Performed By: #### L 500.4050, L506.1000, L501.9985, L100.0100 #### [facility] [address] [place], [address] RDW SD 51.0 fl High 35.1-43.9 [facility] Comment on above: Performed By: #### L 500.4050, L506.1000, L501.9985, L100.0100 #### [facility] [address] [place], [address] WBC (Bld) [#/Vol] 6.8 10*3/uL Normal 4.4-11.0 [facility] Comment on above: Performed By: #### L 500.4050, L506.1000, L501.9985, L100.0100 #### [facility] [address] [place], [address] Absolute Lymph 0.97 X10 3/uL Normal 0.83-4.51 [facility] Comment on above: Order Comment: 134 Performed By: #### L 503.0106 #### [facility] [address] [place], [address] Absolute Neut 4.4 X10 3/uL Normal 2.0-7.7 [facility] Comment on above: Order Comment: 134 Performed By: #### L 503.0106 #### [facility] [address] [place], [address] Basophils/100 WBC (Bld) 0.5 % Normal 0-1 [facility] Comment on above: Order Comment: 134 Performed By: #### L 503.0106 #### [facility] [address] [place], [address] Eosinophils/100 WBC (Bld) 1.2 % Normal 0-5 [facility] Comment on above: Order Comment: 134 Performed By: #### L 503.0106 #### [facility] [address] [place], [address] Erythrocyte distribution width (RBC) [Ratio] 15.7 % High 11.6-14.6 [facility] Comment on above: Order Comment: 134 Performed By: #### L 503.0106 #### [facility] [address] [place], [address] Hematocrit (Bld) [Volume fraction] 40.9 % Normal 37-47 [facility] Comment on above: Order Comment: 134 Performed By: #### L 503.0106 #### [facility] [address] [place], [address] Hemoglobin (Bld) [Mass/Vol] 13.5 g/dL Normal 12.0-15.0 [facility] Comment on above: Order Comment: 134 Performed By: #### L 503.0106 #### [facility] [address] [place], [address] IG% 0.300 Normal 0.0-0.9 [facility] Comment on above: Order Comment: 134 Result Comment: IG% - Immature Granulocytes (promyelocytes, myelocytes and metamyelocytes) > 1% indicates that a LEFT SHIFT is Present. Performed By: #### L 503.0106 #### [facility] [address] [place], [address] Lymphocytes/100 WBC (Bld) 16.1 % Low 19-41 [facility] Comment on above: Order Comment: 134 Performed By: #### L 503.0106 #### [facility] [address] [place], [address] MCH (RBC) [Entitic mass] 28.8 pg Normal 27.0-32.0 [facility] Comment on above: Order Comment: 134 Performed By: #### L 503.0106 #### [facility] [address] [place], [address] MCHC (RBC) [Mass/Vol] 33.0 g/dL Normal 32-36 [facility] Comment on above: Order Comment: 134 Performed By: #### L 503.0106 #### [facility] [address] [place], [address] MCV (RBC) [Entitic vol] 87.4 fL Normal 81-99 [facility] Comment on above: Order Comment: 134 Performed By: #### L 503.0106 #### [facility] [address] [place], [address] Monocytes/100 WBC (Bld) 8.4 % Normal 0-10 [facility] Comment on above: Order Comment: 134 Performed By: #### L 503.0106 #### [facility] [address] [place], [address] Neutrophils/100 WBC (Bld) 73.5 % High 47-70 [facility] Comment on above: Order Comment: 134 Performed By: #### L 503.0106 #### [facility] [address] [place], [address] Nucleated RBC (Bld) [#/Vol] 0 10*3/uL Normal 0-5 [facility] Comment on above: Order Comment: 134 Performed By: #### L 503.0106 #### [facility] [address] [place], [address] Platelet mean volume (Bld) [Entitic vol] 10.8 fL Normal 6.2-12.0 [facility] Comment on above: Order Comment: 134 Performed By: #### L 503.0106 #### [facility] [address] [place], [address] Platelets (Bld) [#/Vol] 107 10*3/uL Low 150-450 [facility] Comment on above: Order Comment: 134 Performed By: #### L 503.0106 #### [facility] [address] [place], [address] RBC (Bld) [#/Vol] 4.68 10*6/uL Normal 4.2-5.4 [facility] Comment on above: Order Comment: 134 Performed By: #### L 503.0106 #### [facility] [address] [place], [address] RDW SD 50.2 fl High 35.1-43.9 [facility] Comment on above: Order Comment: 134 Performed By: #### L 503.0106 #### [facility] [address] [place], [address] WBC (Bld) [#/Vol] 6.0 10*3/uL Normal 4.4-11.0 [facility] Comment on above: Order Comment: 134 Performed By: #### L 503.0106 #### [facility] [address] [place], [address] CRPon 10-09-2024 C-REACTIVE PROT 5.92 mg/L High 0.0-3.0 [facility] Comment on above: Performed By: #### L 503.0106 #### [facility] [address] [place], [address] Carbon dioxide, total [Moles /volume] in Central venous bloodOrdered By: Dany Richardson on 10-09-2024 CO2 [Moles/Vol] 21.0 mmol/L 21.0-32.0 [facility] Carbon dioxide, total [Moles /volume] in Central venous bloodOrdered By: Shayna Malhotra on 10-09-2024 CO2 [Moles/Vol] 22.6 mmol/L 21.0-32.0 [facility] Chloride assayOrdered By: Nolan Richardson on 10-09-2024 Chloride [Moles/Vol] 106 mmol/L 98-108 [facility] Chloride assayOrdered By: Maryanne Malhotra on 10-09-2024 Chloride [Moles/Vol] 104 mmol/L 98-108 [facility] Comprehensive Metabolic Prof ilon 10-09-2024 Albumin [Mass/Vol] 3.8 g/dL Normal 3.4-4.8 [facility] Comment on above: Performed By: #### L 500.4050, L506.1000, L501.9985, L100.0100 #### [facility] [address] [place], [address] Albumin/Globulin [Mass ratio] 0.8 {ratio} Low 0.9-2.4 [facility] Comment on above: Performed By: #### L 500.4050, L506.1000, L501.9985, L100.0100 #### [facility] [address] [place], [address] ALK PHOS 135 U/L High 35-104 [facility] Comment on above: Performed By: #### L 500.4050, L506.1000, L501.9985, L100.0100 #### [facility] [address] [place], [address] ALT [Catalytic activity/Vol] 23 U/L Normal <=34 [facility] Comment on above: Performed By: #### L 500.4050, L506.1000, L501.9985, L100.0100 #### [facility] [address] [place], [address] AST [Catalytic activity/Vol] 40 U/L High <=31 [facility] Comment on above: Result Comment: Hemo lysis present, Results??could be affected. ?? Performed By: #### L 500.4050, L506.1000, L501.9985, L100.0100 #### [facility] [address] [place], [address] Bilirubin [Mass/Vol] 0.67 mg/dL Normal 0.00-1.30 [facility] Comment on above: Performed By: #### L 500.4050, L506.1000, L501.9985, L100.0100 #### [facility] [address] [place], [address] BUN/CRE 26.6 RATIO High 10-20 [facility] Comment on above: Performed By: #### L 500.4050, L506.1000, L501.9985, L100.0100 #### [facility] [address] [place], [address] Calcium [Mass/Vol] 9.7 mg/dL Normal 7.6-11.0 [facility] Comment on above: Performed By: #### L 500.4050, L506.1000, L501.9985, L100.0100 #### [facility] [address] [place], [address] Chloride [Moles/Vol] 106 mmol/L Normal 98-108 [facility] Comment on above: Performed By: #### L 500.4050, L506.1000, L501.9985, L100.0100 #### [facility] [address] [place], [address] CO2 [Moles/Vol] 21.0 mmol/L Normal 21.0-32.0 [facility] Comment on above: Performed By: #### L 500.4050, L506.1000, L501.9985, L100.0100 #### [facility] [address] [place], [address] Creatinine [Mass/Vol] 0.88 mg/dL Normal 0.70-1.20 [facility] Comment on above: Performed By: #### L 500.4050, L506.1000, L501.9985, L100.0100 #### [facility] [address] [place], [address] ECRCL 81.27 ml/min Normal 50-250 [facility] Comment on above: Performed By: #### L 500.4050, L506.1000, L501.9985, L100.0100 #### [facility] [address] [place], [address] GAP 11 Normal 5-15 [facility] Comment on above: Performed By: #### L 500.4050, L506.1000, L501.9985, L100.0100 #### [facility] [address] [place], [address] GFR/1.73 sq M.predicted among non-blacks MDRD (S/P/Bld) [Vol rate/Area] 70 mL/min/{1.73_m2} Normal >60 [facility] Comment on above: Result Comment: mL/m in/1.73m2 CKD-EPI Creatinine Equation (2020) Performed By: #### L 500.4050, L506.1000, L501.9985, L100.0100 #### [facility] [address] [place], [address] Globulin (S) [Mass/Vol] 4.6 g/dL High 2.2-4.2 [facility] Comment on above: Performed By: #### L 500.4050, L506.1000, L501.9985, L100.0100 #### [facility] [address] [place], [address] Glucose [Mass/Vol] 138 mg/dL High 70-99 [facility] Comment on above: Performed By: #### L 500.4050, L506.1000, L501.9985, L100.0100 #### [facility] [address] [place], [address] Potassium [Moles/Vol] 4.5 mmol/L Normal 3.3-5.1 [facility] Comment on above: Result Comment: Hemo lysis present, Results??could be affected. ?? Performed By: #### L 500.4050, L506.1000, L501.9985, L100.0100 #### [facility] [address] [place], [address] Sodium [Moles/Vol] 138 mmol/L Normal 133-145 [facility] Comment on above: Performed By: #### L 500.4050, L506.1000, L501.9985, L100.0100 #### [facility] [address] [place], [address] T PROT 8.4 g/dL Normal 5.9-8.4 [facility] Comment on above: Performed By: #### L 500.4050, L506.1000, L501.9985, L100.0100 #### [facility] [address] [place], [address] Urea nitrogen [Mass/Vol] 23 mg/dL High 4-19 [facility] Comment on above: Performed By: #### L 500.4050, L506.1000, L501.9985, L100.0100 #### [facility] [address] [place], [address] Albumin [Mass/Vol] 4.0 g/dL Normal 3.4-4.8 [facility] Comment on above: Order Comment: 134 Performed By: #### L 501.080 #### [facility] [address] [place], [address] Albumin/Globulin [Mass ratio] 0.8 {ratio} Low 0.9-2.4 [facility] Comment on above: Order Comment: 134 Performed By: #### L 501.080 #### [facility] [address] [place], [address] ALK PHOS 148 U/L High 35-104 [facility] Comment on above: Order Comment: 134 Performed By: #### L 501.080 #### [facility] [address] [place], [address] ALT [Catalytic activity/Vol] 26 U/L Normal <=34 [facility] Comment on above: Order Comment: 134 Performed By: #### L 501.080 #### [facility] [address] [place], [address] AST [Catalytic activity/Vol] 37 U/L High <=31 [facility] Comment on above: Order Comment: 134 Performed By: #### L 501.080 #### [facility] [address] [place], [address] Bilirubin [Mass/Vol] 0.62 mg/dL Normal 0.00-1.30 [facility] Comment on above: Order Comment: 134 Performed By: #### L 501.080 #### [facility] [address] [place], [address] BUN/CRE 25.9 RATIO High 10-20 [facility] Comment on above: Order Comment: 134 Performed By: #### L 501.080 #### [facility] [address] [place], [address] Calcium [Mass/Vol] 9.6 mg/dL Normal 7.6-11.0 [facility] Comment on above: Order Comment: 134 Performed By: #### L 501.080 #### [facility] [address] [place], [address] Chloride [Moles/Vol] 104 mmol/L Normal 98-108 [facility] Comment on above: Order Comment: 134 Performed By: #### L 501.080 #### [facility] [address] [place], [address] CO2 [Moles/Vol] 22.6 mmol/L Normal 21.0-32.0 [facility] Comment on above: Order Comment: 134 Performed By: #### L 501.080 #### [facility] [address] [place], [address] Creatinine [Mass/Vol] 0.82 mg/dL Normal 0.70-1.20 [facility] Comment on above: Order Comment: 134 Performed By: #### L 501.080 #### [facility] [address] [place], [address] GAP 12 Normal 5-15 [facility] Comment on above: Order Comment: 134 Performed By: #### L 501.080 #### [facility] [address] [place], [address] GFR/1.73 sq M.predicted among non-blacks MDRD (S/P/Bld) [Vol rate/Area] 76 mL/min/{1.73_m2} Normal >60 [facility] Comment on above: Order Comment: 134 Result Comment: mL/m in/1.73m2 CKD-EPI Creatinine Equation (2020) Performed By: #### L 501.080 #### [facility] [address] [place], [address] Globulin (S) [Mass/Vol] 4.8 g/dL High 2.2-4.2 [facility] Comment on above: Order Comment: 134 Performed By: #### L 501.080 #### [facility] [address] [place], [address] Glucose [Mass/Vol] 173 mg/dL High 70-99 [facility] Comment on above: Order Comment: 134 Performed By: #### L 501.080 #### [facility] [address] [place], [address] Potassium [Moles/Vol] 4.2 mmol/L Normal 3.3-5.1 [facility] Comment on above: Order Comment: 134 Performed By: #### L 501.080 #### [facility] [address] [place], [address] Sodium [Moles/Vol] 138 mmol/L Normal 133-145 [facility] Comment on above: Order Comment: 134 Performed By: #### L 501.080 #### [facility] [address] [place], [address] T PROT 8.9 g/dL High 5.9-8.4 [facility] Comment on above: Order Comment: 134 Performed By: #### L 501.080 #### [facility] [address] [place], [address] Urea nitrogen [Mass/Vol] 21 mg/dL High 4-19 [facility] Comment on above: Order Comment: 134 Performed By: #### L 501.080 #### [facility] [address] [place], [address] Emergency Department Summary on 10-09-2024 Emergency Department Summary [facility] Medical Records Department [address] [place] [address] Emergency Department Summary 10/09/24 MR#: [id number] Acct: [id number] Name: VIDA NINA Rep #: [id number] : 1950 73 From: Dany Richardson MD PCP: Dr. Shayna Malhotra MD Status:REG ER Location: ED HPI History of Present Illness Chief Complaint: Lower Extremity Injury Narrative Narrative: 73-year-old female states that she had pins placed in her left foot approximately 15 years ago [place] after breaking her heel. She is currently in [facility]. She states for the last 2 weeks she has been having increasing foot pain. She states that on Tuesday, probably of the last week, she had x-rays obtained at the [facility]. She went and saw Dr. Shayna Malhotra on Tuesday, but he did not have the x-ray results. She states that she is having a lot of pain in her left heel that is worse with weightbearing and walking and palpation. She states that it feels as if she is having a baby out of her left heel. [facility] Medical History Obesity Anxiety Cancer Anxiety Diabetes [...] powder [facility] Unknown History Lite Strips) blood-glucose meter ([facility] 11/23/21 Unknown History Lite Meter kit) lancets 28 gauge ([facility] 11/23/21 Unknown History Lancets) nystatin 100,000 unit/gram topical 1 applic topical TID #0 grams Unknown Rx powder ([facility]) quetiapine 100 mg tablet 300 mg [...] ROS Narrative (more content not included)... Normal [facility] Eosinophil percentageOrdered By: Dany Richardson on 10-09-2024 Eosinophils/100 WBC (Bld) 2.5 % 0-5 [facility] Eosinophil percentageOrdered By: Shayna Malhotra on 10-09-2024 Eosinophils/100 WBC (Bld) 1.2 % 0-5 [facility] Epithelial cells.squamous LM Ql (Urine sed)Ordered By: Dany Richardson on 10-09-2024 Epithelial cells.squamous LM.HPF (Urine sed) [#/Area] 0 /[HPF] 5-10 [facility] Erythrocyte Sed Rateon 10-09 SED RATE 49 mm/hr High 0-30 [facility] Comment on above: Performed By: #### L 503.0106 #### [facility] [place], [address] Erythrocyte distribution wid th (RBC) [Ratio]Ordered By: Dany Richardson on 10-09-2024 Erythrocyte distribution width (RBC) [Entitic vol] 51.0 fL High 35.1-43.9 [facility] Erythrocyte distribution wid th (RBC) [Ratio]Ordered By: Shayna Malhotra on 10-09-2024 Erythrocyte distribution width (RBC) [Entitic vol] 50.2 fL High 35.1-43.9 [facility] Erythrocyte distribution wid th ratioOrdered By: Dany Richardson on 10-09-2024 Erythrocyte distribution width (RBC) [Ratio] 15.9 % High 11.6-14.6 [facility] Erythrocyte distribution wid th ratioOrdered By: Shayna Malhotra on 10-09-2024 Erythrocyte distribution width (RBC) [Ratio] 15.7 % High 11.6-14.6 [facility] Erythrocyte distribution wid th standard deviationOrdered By: Shayna Malhotra on 10-09-2024 Erythrocyte distribution width (RBC) [Ratio] 50.2 fl High 35.1-43.9 [facility] Erythrocyte sedimentation ra teOrdered By: Missael Lomeli on 10-09-2024 ESR (Bld) [Velocity] 49 mm/h High 0-30 [facility] Estimation of creatinine silvana aranceOrdered By: Dany Richardson on 10-09-2024 Estimated Creatinine Clearance Calc 81.27 ml/min 50-250 [facility] Extremity Lower without Cont raon 10-09-2024 Extremity Lower without Contra [facility] Imaging Services [address] [place] [address] [id number] Extremity Lower without Contra MR#: [id number] Acct: [id number] Name: VIDA NINA Rep #: [id number] : 1950 F 73 From: Saul Sanchez MD PCP: Dr. Shayna Malhotra MD Status: ADM IN Study: Extremity Lower without Contra Date of Exam: 0 10/09/24 Exam# [id number] Ordering Dr: Missael Hernandez DO PROCEDURE: EXTREMITY [...] Hernandez at 2:20 a.m. 10/10/2024 Reading Location: [facility] CC: Dr. Missael Hernandez DO; Dr. Shayna Malhotra MD Players Assistant: Signed Normal [facility] Foot min 3 Viewson 5 Foot min 3 Views [facility] Imaging Services [address] [place] [address] Foot min 3 Views MR#: [id number] Acct: [id number] Name: VIDA NINA Rep #: [id number] : 1950 F 73 From: Alok Jiménez MD PCP: Dr. Shayna Malhotra MD Status: REG ER Study: Foot min 3 Views Date of Exam: 10/09/24 Exam# [id number] Ordering Dr: Dany Richardson MD EXAM: LEFT [...] Dany Richardson MD; Dr. Shayna Malhotra MD Players Assistant: Signed Normal [facility] GFR/1.73 sq M.predicted saida g non-blacks MDRD (S/P/Bld) [Vol rate/Area]Ordered By: Dany Richardson on 10-09-2024 Estimated GFR (MDRD) Non-Af Amer 70 >60 [facility] Comment on above: mL/min/1.73m2 CKD-EP I Creatinine Equation (2020) GFR/1.73 sq M.predicted saida g non-blacks MDRD (S/P/Bld) [Vol rate/Area]Ordered By: Shayna Malhotra on 10-09-2024 Estimated GFR (MDRD) Non-Af Amer 76 >60 [facility] Comment on above: mL/min/1.73m2 CKD-EP I Creatinine Equation (2020) Glomerular filtration rate ( GFR) estimation/1.73 sq m using serum, plasma, or whole bOrdered By: Shayna Malhotra on 10-09-2024 GFR/1.73 sq M.predicted among non-blacks MDRD (S/P/Bld) [Vol rate/Area] 76 mL/min/{1.73_m2} >60 [facility] Comment on above: mL/min/1.73m2 CKD-EP I Creatinine Equation (2020) Glucose Ql (U)Ordered By: Nolan Richardson on 10-09-2024 Glucose (U) [Mass/Vol] 1000 mg/dL High Normal [facility] H AND P Exam - [place] 10-09-2024 H&P Exam - Hospitalist [facility] Medical Records Department [address] [place] [address] H P Exam - Hospitalist 10/09/242118 MR#: [id number] Acct: [id number] Name: VIDA NINA Rep #: [id number] : 1950 73 From: Missael Hernandez DO PCP: Dr. 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 [facility] Medical History Obesity Anxiety Cancer Anxiety Diabetes [...] topical TID #0 grams Unknown Rx powder ([facility]) quetiapine 100 mg tablet 300 mg (3 x 100 mg) PO BID #0 tabs 11/24/21 Unknown Rx aspirin 81 mg chewable tablet 81 mg PO DAILY 05/06/22 Unknown Hi (more content not included)... Normal [facility] Hematocrit Auto (Bld) [Volum e fraction]Ordered By: Dany Richardson on 10-09-2024 Hematocrit (Bld) [Volume fraction] 40.8 % [address] Hematocrit Auto (Bld) [Volum e fraction]Ordered By: Shayna Malhotra on 10-09-2024 Hematocrit (Bld) [Volume fraction] 40.9 % [address] [place] [address] Hemoglobin A1con 10-09-2024 HbA1c (Bld) [Mass fraction] 7.2 % High <=5.6 [facility] Comment on above: Order Comment: 134 Result Comment: Norm al < 5.7 % Prediabetic 5.7 - 6.4 % Diabetic >or= 6.5 % Please note range changes. Performed By: #### L 501.080 #### [facility] [address] [place], [place] [address] [place], [place], [id number] Hemoglobin A1c percentageOrd ered By: Missael Lomeli on 10-09-2024 HbA1c (Bld) [Mass fraction] 7.2 % High <5.7 [facility] Comment on above: Normal < 5.7 % Predi abetic 5.7 - 6.4 % Diabetic >or= 6.5 % Please note range changes. Hemoglobin A1c percentageOrd ered By: Shayna Malhotra on 10-09-2024 HbA1c (Bld) [Mass fraction] 7.2 % High <5.7 [facility] Comment on above: Normal < 5.7 % Predi abetic 5.7 - 6.4 % Diabetic >or= 6.5 % Please note range changes. Hemoglobin measurementOrdere d By: Dany Richardson on 10-09-2024 Hemoglobin (Bld) [Mass/Vol] 13.5 g/dL 12.0-15.0 [facility] Hemoglobin measurementOrdere d By: Shayna Malhotra on 10-09-2024 Hemoglobin (Bld) [Mass/Vol] 13.5 g/dL 12.0-15.0 [facility] Immature granulocytes/100 WB C Auto (Bld)Ordered By: Dany Richardson on 10-09-2024 Immature granulocytes/100 WBC (Bld) 0.400 % 0.0-0.9 [facility] Comment on above: IG% - Immature Granu locytes (promyelocytes, myelocytes and metamyelocytes) > 1% indicates that a LEFT SHIFT is Present. Immature granulocytes/100 WB C Auto (Bld)Ordered By: Shayna Malhotra on 10-09-2024 Immature granulocytes/100 WBC (Bld) 0.300 % 0.0-0.9 [facility] Comment on above: IG% - Immature Granu locytes (promyelocytes, myelocytes and metamyelocytes) > 1% indicates that a LEFT SHIFT is Present. Ketones Test strip Ql (U)Ord ered By: Dany Richardson on 10-09-2024 Ketones Ql (U) Negative Negative [facility] - Chemistry and C hemistry - challengeOrdered By: Dany Richardson on 10-09-2024 AST [Catalytic activity/Vol] 40 U/L High <32 [facility] Comment on above: Hemolysis present, R esults could be affected. Laboratory - Chemistry and C hemistry - challengeOrdered By: Shayna Malhotra on 10-09-2024 AST [Catalytic activity/Vol] 37 U/L High <32 [facility] Lymphocytes Auto (Unsp spec) [#/Vol]Ordered By: Dany Richardson on 10-09-2024 Lymphocytes (Bld) [#/Vol] 1.11 10*3/uL 0.83-4.51 [facility] Lymphocytes Auto (Unsp spec) [#/Vol]Ordered By: Shayna Malhotra on 10-09-2024 Lymphocytes (Bld) [#/Vol] 0.97 10*3/uL 0.83-4.51 [facility] Lymphocytes/100 WBC Auto (Un sp spec)Ordered By: Dany Richardson on 10-09-2024 Lymphocytes/100 WBC (Bld) 16.3 % Low 19-41 [facility] Lymphocytes/100 WBC Auto (Un sp spec)Ordered By: Shayna Malhotra on 10-09-2024 Lymphocytes/100 WBC (Bld) 16.1 % Low 19-41 [facility] MCV (mean corpuscular volume ) determinationOrdered By: Dany Richardson on 10-09-2024 MCV (RBC) [Entitic vol] 87.4 fL 81-99 [facility] MCV (mean corpuscular volume ) determinationOrdered By: Shayna Malhotra on 10-09-2024 MCV (RBC) [Entitic vol] 87.4 fL 81-99 [facility] Magnesiumon 10-09-2024 Magnesium [Mass/Vol] 2.1 mg/dL Normal 1.5-2.2 [facility] Comment on above: Performed By: #### L 503.0106 #### [facility] [address] [place] [address], [address] Mean corpuscular hemoglobin (MCH) determinationOrdered By: Dany Richardson on 10-09-2024 MCH (RBC) [Entitic mass] 28.9 pg 27.0-32.0 [facility] Mean corpuscular hemoglobin (MCH) determinationOrdered By: Shayna Malhotra on 10-09-2024 MCH (RBC) [Entitic mass] 28.8 pg 27.0-32.0 [facility] Mean corpuscular hemoglobin concentration (MCHC) determinationOrdered By: Dany Richardson on 10-09-2024 MCHC (RBC) [Mass/Vol] 33.1 g/dL [facility] Mean corpuscular hemoglobin concentration (MCHC) determinationOrdered By: Shayna Malhotra on 10-09-2024 MCHC (RBC) [Mass/Vol] 33.0 g/dL [facility] Mean platelet volume determi nationOrdered By: Dany Richardson on 10-09-2024 Platelet mean volume (Bld) [Entitic vol] 11.8 fL 6.2-12.0 [facility] Mean platelet volume determi nationOrdered By: Shayna Malhotra on 10-09-2024 Platelet mean volume (Bld) [Entitic vol] 10.8 fL 6.2-12.0 [facility] Microscopic analysis of urin e for red blood cells (RBC)Ordered By: Dany Richardson on 10-09-2024 Microscopic analysis of urine for red blood cells (RBC) 10-25 SEEN /hpf 0-5 [facility] Urine RBC 10-25 SEEN /hpf 0-5 [facility] Monocyte percentageOrdered B y: Dany Richardson on 10-09-2024 Monocytes/100 WBC (Bld) 8.3 % 0-10 [facility] Monocyte percentageOrdered B y: Shayna Malhotra on 10-09-2024 Monocytes/100 WBC (Bld) 8.4 % 0-10 [facility] Mucus LM Ql (Urine sed)Order ed By: Dany Richardson on 10-09-2024 Mucus Ql (Urine sed) 0 SEEN /hpf [facility] Neutrophil percentageOrdered By: Dany Richardson on 10-09-2024 Neutrophils/100 WBC (Bld) 72.1 % High 47-70 [facility] Neutrophil percentageOrdered By: Shayna Malhotra on 10-09-2024 Neutrophils/100 WBC (Bld) 73.5 % High 47-70 [facility] Nitrite Test strip Ql (U)Ord ered By: Dany Richardosn on 10-09-2024 Nitrite Ql (U) Negative Negative [facility] No Panel InformationOrdered By: Missael Lomeli on 10-09-2024 Urine Buprenorphine Qualitative Negative < 200 ng/mL [facility] Urine Oxycodone Screen Negative < 100 ng/mL [facility] Nucleated red blood cell per centageOrdered By: Dany Richardson on 10-09-2024 Nucleated RBC/100 WBC (Bld) [Ratio] 0 % 0-5 [facility] Nucleated red blood cell per centageOrdered By: Shayna Malhotra on 10-09-2024 Nucleated RBC/100 WBC (Bld) [Ratio] 0 % 0-5 [facility] Platelet countOrdered By: Nolan Richardson on 10-09-2024 Platelets (Bld) [#/Vol] 106 10*3/uL Low 150-450 [facility] Platelet countOrdered By: Maryanne Malhotra on 10-09-2024 Platelets (Bld) [#/Vol] 107 10*3/uL Low 150-450 [facility] Potassium (Unsp spec) [Mass/ Vol]Ordered By: Dany Richardson on 10-09-2024 Potassium [Moles/Vol] 4.5 mmol/L 3.3-5.1 [facility] Comment on above: Hemolysis present, R esults could be affected. Potassium (Unsp spec) [Mass/ Vol]Ordered By: Shayna Malhotra on 10-09-2024 Potassium [Moles/Vol] 4.2 mmol/L 3.3-5.1 [facility] Potassium measurement (mass/ volume)Ordered By: Shayna Malhotra on 10-09-2024 Potassium (Unsp spec) [Mass/Vol] 4.2 mmol/L 3.3-5.1 [facility] Protein Test strip Ql (U)Ord ered By: Dany Richardson on 10-09-2024 Protein Ql (U) 30 mg/dl High Negative [facility] Quantitative urine opiates m easurementOrdered By: Missael Lomeli on 10-09-2024 Opiates Ql (U) Negative < 300 ng/mL [facility] RBC Auto (Bld) [#/Vol]Ordere d By: Dany Richardson on 10-09-2024 RBC (Bld) [#/Vol] 4.67 10*6/uL 4.2-5.4 [facility] RBC Auto (Bld) [#/Vol]Ordere d By: Shayna Malhotra on 10-09-2024 RBC (Bld) [#/Vol] 4.68 10*6/uL 4.2-5.4 [facility] Screening urine fentanyl renay surementOrdered By: Missael Lomeli on 10-09-2024 fentaNYL Screen Ql (U) Negative [facility] Serum creatinine measurement (mass/volume)Ordered By: Dany Richardson on 10-09-2024 Creatinine [Mass/Vol] 0.88 mg/dL 0.70-1.20 [facility] Serum creatinine measurement (mass/volume)Ordered By: Shayna Malhotra on 10-09-2024 Creatinine [Mass/Vol] 0.82 mg/dL 0.70-1.20 [facility] Serum globulin measurementOr dered By: Dany Richardson on 10-09-2024 Globulin (S) [Mass/Vol] 4.6 g/dL High 2.2-4.2 [facility] Serum globulin measurementOr dered By: Shayna Malhotra on 10-09-2024 Globulin (S) [Mass/Vol] 4.8 g/dL High 2.2-4.2 [facility] Serum glucose measurement (m ass/volume)Ordered By: Dany Richardson on 10-09-2024 Glucose [Mass/Vol] 138 mg/dL High 70-99 [facility] Serum glucose measurement (m ass/volume)Ordered By: Shayna Malhotra on 10-09-2024 Glucose [Mass/Vol] 173 mg/dL High 70-99 [facility] Serum or plasma C reactive p rotein measurement (mass/volume)Ordered By: Missael Lomeli on 10-09-2024 CRP [Mass/Vol] 5.92 mg/L High 0.0-3.0 [facility] Serum or plasma alanine burnette otransferase (ALT) measurementOrdered By: Dany Richardson on 10-09-2024 ALT [Catalytic activity/Vol] 23 U/L <35 [facility] Serum or plasma alanine burnette otransferase (ALT) measurementOrdered By: Shayna Malhotra on 10-09-2024 ALT [Catalytic activity/Vol] 26 U/L <35 [facility] Serum or plasma albumin kim urement (mass/volume)Ordered By: Dany Richardson on 10-09-2024 Albumin [Mass/Vol] 3.8 g/dL 3.4-4.8 [facility] Serum or plasma albumin kim urement (mass/volume)Ordered By: Shayna Malhotra on 10-09-2024 Albumin [Mass/Vol] 4.0 g/dL 3.4-4.8 [facility] Serum or plasma albumin/glob ulin mass ratioOrdered By: Dany Richardson on 10-09-2024 Albumin/Globulin [Mass ratio] 0.8 {ratio} Low 0.9-2.4 [facility] Serum or plasma albumin/glob ulin mass ratioOrdered By: Shayna Malhotra on 10-09-2024 Albumin/Globulin [Mass ratio] 0.8 {ratio} Low 0.9-2.4 [facility] Serum or plasma alkaline regina sphatase measurementOrdered By: Dany Richardson on 10-09-2024 ALP [Catalytic activity/Vol] 135 U/L High [facility] Serum or plasma alkaline regina sphatase measurementOrdered By: Shayna Malhotra on 10-09-2024 ALP [Catalytic activity/Vol] 148 U/L High - [facility] Serum or plasma calcium kim urement (mass/volume)Ordered By: Dany Richardson on 10-09-2024 Calcium [Mass/Vol] 9.7 mg/dL 7.6-11.0 [facility] Serum or plasma calcium kim urement (mass/volume)Ordered By: Shayna Malhotra on 10-09-2024 Calcium [Mass/Vol] 9.6 mg/dL 7.6-11.0 [facility] Serum or plasma ethanol kim urement (mass/volume)Ordered By: Missael Lomeli on 10-09-2024 Ethanol [Mass/Vol] mg/dL <10.1 [facility] Comment on above: This test is for med ical purposes only. The legal definition of intoxication varies according to local law. Serum or plasma urea nitroge n measurement (mass/volume)Ordered By: Dany Richardson on 10-09-2024 Urea nitrogen [Mass/Vol] 23 mg/dL High 09-22 [facility] Serum or plasma urea nitroge n measurement (mass/volume)Ordered By: Shayna Malhotra on 10-09-2024 Urea nitrogen [Mass/Vol] 21 mg/dL High 09-22 [facility] Sodium levelOrdered By: Dany Richardson on 10-09-2024 Sodium [Moles/Vol] 138 mmol/L 133-145 [facility] Sodium levelOrdered By: Paty Malhotra on 10-09-2024 Sodium [Moles/Vol] 138 mmol/L 133-145 [facility] Squamous epithelial cells de tection in urine sediment by light microscopyOrdered By: Dany Richardson on 10-09-2024 Epithelial cells.squamous LM Ql (Urine sed) 0-5 SEEN /hpf 5-10 [facility] TSH DL <= 0.005 mIU/L QnOrde red By: Missael Lomeli on 10-09-2024 TSH Qn 4.730 uIU/mL High 0.300-4.20 0 [facility] Thyroid Stim Hormone (TSH)on 10-09-2024 TSH 4.730 uIU/mL High 0.300-4.20 0 [facility] Comment on above: Performed By: #### L 503.0106 #### [facility] [address] [place], [address] Total proteinOrdered By: Treasure Richardson on 10-09-2024 Protein [Mass/Vol] 8.4 g/dL 5.9-8.4 [facility] Total proteinOrdered By: Evi Malhotra on 10-09-2024 Protein [Mass/Vol] 8.9 g/dL High 5.9-8.4 [facility] Transitional cells LM Ql (Ur ine sed)Ordered By: Dany Richardson on 10-09-2024 Urine Transitional Epithelial Cells 0-5 SEEN /hpf 0-5 [facility] Transitional cells detection in urine sediment by light microscopyOrdered By: Dany Richardson on 10-09-2024 Transitional cells LM Ql (Urine sed) 0-5 SEEN /hpf 0-5 [facility] Urinalysis, Completeon 10-09 AMORPHOUS 1+ Normal [facility] Comment on above: Order Comment: JOSE L CTOR TO SPECIFY Performed By: #### L 503.0106 #### [facility] [address] [place], [address] EPI,SQUAMOUS 0-5 SEEN Normal 5-10 [facility] Comment on above: Order Comment: JOSE L CTOR TO SPECIFY Performed By: #### L 503.0106 #### [facility] [address] [place], [address] EPI,TRANSITION 0-5 SEEN Normal 0-5 [facility] Comment on above: Order Comment: COLLE CTOR TO SPECIFY Performed By: #### L 503.0106 #### [facility] [address] [place], [address] RBC 10-25 SEEN Normal 0-5 [facility] Comment on above: Order Comment: COLLE CTOR TO SPECIFY Performed By: #### L 503.0106 #### [facility] [address] [place], [address] BACTERIA 4+ /hpf Normal None Seen [facility] Comment on above: Order Comment: JOSE L CTOR TO SPECIFY Performed By: #### L 503.0106 #### [facility] [address] [place], [address] WBC >100 SEEN Normal 0-5 [facility] Comment on above: Order Comment: JOSE L CTOR TO SPECIFY Performed By: #### L 503.0106 #### [facility] [address] [place], [address] Mucus Ql (Urine sed) [address] [facility] Comment on above: Order Comment: JOSE L CTOR TO SPECIFY Performed By: #### L 503.0106 #### [facility] [address] [place], [address] Urine Drug Screen (VISTA)on 10-09-2024 AMPHETAMINES Negative Normal <1000 ng/mL [facility] Comment on above: Order Comment: UNK Performed By: #### L 503.0106 #### [facility] [address] [place], [address] BARBITIURATES Negative Normal < 200 ng/mL [facility] Comment on above: Order Comment: UNK Performed By: #### L 503.0106 #### [facility] [address] [place], [address] BENZODIAZIPINE Negative Normal < 200 ng/mL [facility] Comment on above: Order Comment: UNK Performed By: #### L 503.0106 #### [facility] [address] [place], [address] BUP Ur Drug Scr Negative Normal < 200 ng/mL [facility] Comment on above: Order Comment: UNK Performed By: #### L 503.0106 #### [facility] [address] [place], [address] COCAINE Negative Normal < 300 ng/mL [facility] Comment on above: Order Comment: UNK Performed By: #### L 503.0106 #### [facility] [address] [place], [address] Fentanyl Negative Normal [facility] Comment on above: Order Comment: UNK Performed By: #### L [id number] #### [facility] [address] [place], [address] METHADONE Negative Normal < 300 ng/mL [facility] Comment on above: Order Comment: UNK Performed By: #### L 503.0106 #### [facility] [address] [place], [address] OPIATES Negative Normal < 300 ng/mL [facility] Comment on above: Order Comment: UNK Performed By: #### L 503.0106 #### [facility] [address] [place], [address] OXYCODONE Negative Normal < 100 ng/mL [facility] Comment on above: Order Comment: UNK Performed By: #### L 503.0106 #### [facility] [address] [place], [address] PCP Negative Normal < 25 ng/mL [facility] Comment on above: Order Comment: UNK Performed By: #### L 503.0106 #### [facility] [address] [place], [place], [address] THC Negative Normal < 50 ng/mL [facility] Comment on above: Order Comment: UNK Performed By: #### L 503.0106 #### [facility] [address] [place], [place], [id number] Urine benzodiazepine levelOr dered By: Missael Lomeli on 10-09-2024 Benzodiazepines Ql (U) Negative < 200 ng/mL [facility] Urine blood detectionOrdered By: Dany Richardson on 10-09-2024 Urine Occult Blood 150 /ul High Negative [facility] Urine clarityOrdered By: Treasure Richardson on 10-09-2024 Clarity (U) Cloudy Clear [facility] Urine cocaine levelOrdered B y: Missael Lomeli on 10-09-2024 Cocaine Ql (U) Negative < 300 ng/mL [facility] Urine color determinationOrd ered By: Dany Richardson on 10-09-2024 Color (U) Yellow Yellow [facility] Urine [id number] abinol (THC) measurementOrdered By: Missael Lomeli on 10-09-2024 Cannabinoids Screen Ql (U) Negative < 50 ng/mL [facility] Urine glucose detectionOrder ed By: Dany Richardson on 10-09-2024 Glucose Ql (U) 1000 mg/dl High Normal [facility] Urine leukocyte esterase det ection by dipstickOrdered By: Dany Richardson on 10-09-2024 Leukocyte esterase Test strip Ql (U) 100 /ul High Negative [facility] Urine pHOrdered By: Dany chung on 10-09-2024 pH (U) 5.0 [pH] 5.0 - 8.0 [facility] Urine phencyclidine (PCP) de tectionOrdered By: Missael Lomeli on 10-09-2024 Phencyclidine Ql (U) Negative < 25 ng/mL [facility] Urine sediment bacteria coun t by microscopy (number/high power field)Ordered By: Dany Richardson on 10-09-2024 Bacteria LM.HPF (Urine sed) [#/Area] 4 /[HPF] None Seen [facility] Urine specific gravity measu rementOrdered By: Dany Beltránkaren on 10-09-2024 Specific gravity (U) [Rel density] 1.020 1.002-1.03 0 [facility] Urine urobilinogen measureme ntOrdered By: Dany Rochelleshruthi on 10-09-2024 Urobilinogen Ql (U) 1 mg/dl High Normal [facility] Urobilinogen Ql (U)Ordered B y: Dany Richardson on 10-09-2024 Urobilinogen (U) [Mass/Vol] 1 mg/dL High Normal [facility] Vitamin B12on 10-09-2024 Cobalamin (Vitamin B12) [Mass/Vol] 379 pg/mL Normal 180-914 [facility] Comment on above: Performed By: #### L 503.0106 #### [facility] [address], [place], [id number] Vitamin B12 ser/plasOrdered By: Missael Lomeli on 10-09-2024 Cobalamin (Vitamin B12) [Mass/Vol] 379 pg/mL 180-914 [facility] Vitamin D, 25-hydroxyOrdered By: Shayna Malhotra on 10-09-2024 Vitamin D 25-Hydroxy 30.0 ng/mL 30-100 [facility] Comment on above: Vitamin D StatusDefi ciency: <20 ng/mL (50nmol/L)Insufficiency: 20-30 ng/mL (50-75 nmol/L)Sufficiency: 30-100 ng/mL (75-250 nmol/L)Toxicity: >100 ng/mL (>250 nmol/L) Vitamin D,25 Hydroxyon 10-09 Vitamin D 25-OH 30.0 ng/mL Normal 30-100 [facility] Comment on above: Order Comment: 134 Result Comment: Maricarmen min D Status Deficiency: <20 ng/mL (50nmol/L) Insufficiency: 20-30 ng/mL (50-75 nmol/L) Sufficiency: 30-100 ng/mL (75-250 nmol/L) Toxicity: >100 ng/mL (>250 nmol/L) Performed By: #### L 501.080 #### [facility] [address] [place], [address] White blood cell (WBC) count Ordered By: Dany Richardson on 10-09-2024 WBC (Bld) [#/Vol] 6.8 10*3/uL 4.4-11.0 [facility] White blood cell (WBC) count Ordered By: Shayna Malhotra on 10-09-2024 WBC (Bld) [#/Vol] 6.0 10*3/uL 4.4-11.0 [facility] White blood cell countOrdere d By: Dany Richardson on 10-09-2024 Urine WBC >100 SEEN /hpf 0-5 [facility] White blood cell count >100 SEEN /hpf 0-5 [facility] CBC W/Diff, Automatedon Absolute Neut Normal 2.0-7.7 [facility] Comment on above: Order Comment: 134 Result Comment: UTO X2 Performed By: #### L 500.4050, L506.1000, L501.9985, L100.0100 #### [facility] [address] [place], [address] HCT Normal 37-47 [facility] Comment on above: Order Comment: 134 Result Comment: UTO X2 Performed By: #### L 500.4050, L506.1000, L501.9985, L100.0100 #### [facility] [address] [place], [address] HGB Normal 12.0-15.0 [facility] Comment on above: Order Comment: 134 Result Comment: UTO X2 Performed By: #### L 500.4050, L506.1000, L501.9985, L100.0100 #### [facility] [address] [place], [address] MCH Normal 27.0-32.0 [facility] Comment on above: Order Comment: 134 Result Comment: UTO X2 Performed By: #### L 500.4050, L506.1000, L501.9985, L100.0100 #### [facility] [address] [place], [address] MCHC Normal 32-36 [facility] Comment on above: Order Comment: 134 Result Comment: UTO X2 Performed By: #### L 500.4050, L506.1000, L501.9985, L100.0100 #### [facility] [address] [place], [address] MCV Normal 81-99 [facility] Comment on above: Order Comment: 134 Result Comment: UTO X2 Performed By: #### L 500.4050, L506.1000, L501.9985, L100.0100 #### [facility] [address] [place], [address] NEUT% Normal 47-70 [facility] Comment on above: Order Comment: 134 Result Comment: UTO X2 Performed By: #### L 500.4050, L506.1000, L501.9985, L100.0100 #### [facility] [address] [place], [address] PLT Normal 150-450 [facility] Comment on above: Order Comment: 134 Result Comment: UTO X2 Performed By: #### L 500.4050, L506.1000, L501.9985, L100.0100 #### [facility] [address] [place], [address] RBC Normal 4.2-5.4 [facility] Comment on above: Order Comment: 134 Result Comment: UTO X2 Performed By: #### L 500.4050, L506.1000, L501.9985, L100.0100 #### [facility] [address] [place], [address] RDW CV Normal 11.6-14.6 [facility] Comment on above: Order Comment: 134 Result Comment: UTO X2 Performed By: #### L 500.4050, L506.1000, L501.9985, L100.0100 #### [facility] [address] [place], [address] RDW SD Normal 35.1-43.9 [facility] Comment on above: Order Comment: 134 Result Comment: UTO X2 Performed By: #### L 500.4050, L506.1000, L501.9985, L100.0100 #### [facility] [address] [place], [address] WBC Normal 4.4-11.0 [facility] Comment on above: Order Comment: 134 Result Comment: UTO X2 Performed By: #### L 500.4050, L506.1000, L501.9985, L100.0100 #### [facility] [address] [place], [address] Comprehensive Metabolic Prof [facility] 10-08-2024 ALB Normal 3.4-4.8 [facility] Comment on above: Order Comment: 134 Result Comment: UTO X2 Performed By: #### L 500.4050, L506.1000, L501.9985, L100.0100 #### [facility] [address] [place], [address] ALK PHOS Normal 35-104 [facility] Comment on above: Order Comment: 134 Result Comment: UTO X2 Performed By: #### L 500.4050, L506.1000, L501.9985, L100.0100 #### [facility] [address] [place], [address] ALT Normal <=34 [facility] Comment on above: Order Comment: 134 Result Comment: UTO X2 Performed By: #### L 500.4050, L506.1000, L501.9985, L100.0100 #### [facility] [address] [place], [address] AST Normal <=31 [facility] Comment on above: Order Comment: 134 Result Comment: UTO X2 Performed By: #### L 500.4050, L506.1000, L501.9985, L100.0100 #### [facility] [address] [place], [address] BUN Normal 4-19 [facility] Comment on above: Order Comment: 134 Result Comment: UTO X2 Performed By: #### L 500.4050, L506.1000, L501.9985, L100.0100 #### [facility] [address] [place], [address] BUN/CRE Normal 10-20 [facility] Comment on above: Order Comment: 134 Result Comment: UTO X2 Performed By: #### L 500.4050, L506.1000, L501.9985, L100.0100 #### [facility] [address] [place], [address] Calcium Normal 7.6-11.0 [facility] Comment on above: Order Comment: 134 Result Comment: UTO X2 Performed By: #### L 500.4050, L506.1000, L501.9985, L100.0100 #### [facility] [address] [place], [address] CL Normal 98-108 [facility] Comment on above: Order Comment: 134 Result Comment: UTO X2 Performed By: #### L 500.4050, L506.1000, L501.9985, L100.0100 #### [facility] [address] [place], [address] CO2 Normal 21.0-32.0 [facility] Comment on above: Order Comment: 134 Result Comment: UTO X2 Performed By: #### L 500.4050, L506.1000, L501.9985, L100.0100 #### [facility] [address] [place], [address] CREAT,SERUM Normal 0.70-1.20 [facility] Comment on above: Order Comment: 134 Result Comment: UTO X2 Performed By: #### L 500.4050, L506.1000, L501.9985, L100.0100 #### [facility] [address] [place], [address] eGFR Normal >60 [facility] Comment on above: Order Comment: 134 Result Comment: UTO X2 Performed By: #### L 500.4050, L506.1000, L501.9985, L100.0100 #### [facility] [address] [place], [address] GAP Normal 5-15 [facility] Comment on above: Order Comment: 134 Result Comment: UTO X2 Performed By: #### L 500.4050, L506.1000, L501.9985, L100.0100 #### [facility] [address] [place], [address] GLU Normal 70-99 [facility] Comment on above: Order Comment: 134 Result Comment: UTO X2 Performed By: #### L 500.4050, L506.1000, L501.9985, L100.0100 #### [facility] [address] [place], [address] Potassium Normal 3.3-5.1 [facility] Comment on above: Order Comment: 134 Result Comment: UTO X2 Performed By: #### L 500.4050, L506.1000, L501.9985, L100.0100 #### [facility] [address] [place], [address] T BILI Normal 0.00-1.30 [facility] Comment on above: Order Comment: 134 Result Comment: UTO X2 Performed By: #### L 500.4050, L506.1000, L501.9985, L100.0100 #### [facility] [address] [place], [address] T PROT Normal 5.9-8.4 [facility] Comment on above: Order Comment: 134 Result Comment: UTO X2 Performed By: #### L 500.4050, L506.1000, L501.9985, L100.0100 #### [facility] [address] [place], [address] Comprehensive Metabolic Profil Normal 133-145 [facility] Comment on above: Order Comment: 134 Result Comment: UTO X2 Performed By: #### L 500.4050, L506.1000, L501.9985, L100.0100 #### [facility] [address] [place], [address] [id number] DOrdered By: Jean Malhotra on 07-09-2024 Vitamin D 25-Hydroxy 44.8 ng/mL [facility] Comment on above: Vitamin D 25(OH) Sta tus Range Deficiency <20 ng/mL (50nmol/L) Insufficiency 20 - 30 ng/mL (50 - 75 nmol/L) Sufficiency 30 - 100 ng/mL (75 - 250 nmol/L) Toxicity >100 ng/mL (>250 nmol/L) Absolute lymphocyte countOrd ered By: Shayna Malhotra on 07-09-2024 Lymphocytes Auto (Unsp spec) [#/Vol] 0.82 10*3/uL Low 0.83-4.51 [facility] Absolute neutrophil countOrd ered By: Shayna Malhotra on 07-09-2024 Neutrophils (Bld) [#/Vol] 2.6 10*3/uL 2.0-7.7 [facility] Albumin to globulin ratioOrd ered By: Shayna Malhotra on 07-09-2024 Albumin/Globulin [Mass ratio] 0.6 {ratio} Low 0.9-2.4 [facility] Automated lymphocyte count a s percentage of total leukocytesOrdered By: Shayna Malhotra on 07-09-2024 Lymphocytes/100 WBC Auto (Unsp spec) 20.2 % 19-41 [facility] Basophil percentageOrdered B y: Shayna Malhotra on 07-09-2024 Basophils/100 WBC (Bld) 1.0 % 0-1 [facility] Bilirubin, totalOrdered By: Shayna Malhotra on 07-09-2024 Bilirubin [Mass/Vol] 0.70 mg/dL 0.20-1.00 [facility] Comment on above: For patients on eltr ombopag therapy, use of Dimension [place] TBIL is not recommended. Blood urea nitrogen (BUN)/cr eatinine ratioOrdered By: Shayna Malhotra on 07-09-2024 Urea nitrogen/Creatinine [Mass ratio] 22.2 mg/mg High 10-20 [facility] CBC W/Diff, Automatedon Absolute Lymph 0.82 X10 3/uL Low 0.83-4.51 [facility] Comment on above: Order Comment: 134 Performed By: #### L 500.4050, L506.1000, L501.9985, L100.0100 #### [facility] [address] [place], [address] Absolute Neut 2.6 X10 3/uL Normal 2.0-7.7 [facility] Comment on above: Order Comment: 134 Performed By: #### L 500.4050, L506.1000, L501.9985, L100.0100 #### [facility] [address] [place], [address] Basophils/100 WBC (Bld) 1.0 % Normal 0-1 [facility] Comment on above: Order Comment: 134 Performed By: #### L 500.4050, L506.1000, L501.9985, L100.0100 #### [facility] [address] [place], [address] Eosinophils/100 WBC (Bld) 5.9 % High 0-5 [facility] Comment on above: Order Comment: 134 Performed By: #### L 500.4050, L506.1000, L501.9985, L100.0100 #### [facility] [address] [place], [address] Erythrocyte distribution width (RBC) [Ratio] 15.9 % High 11.6-14.6 [facility] Comment on above: Order Comment: 134 Performed By: #### L 500.4050, L506.1000, L501.9985, L100.0100 #### [facility] [address] [place], [address] Hematocrit (Bld) [Volume fraction] 38.2 % Normal 37-47 [facility] Comment on above: Order Comment: 134 Performed By: #### L 500.4050, L506.1000, L501.9985, L100.0100 #### [facility] [address] [place], [address] Hemoglobin (Bld) [Mass/Vol] 12.4 g/dL Normal 12.0-15.0 [facility] Comment on above: Order Comment: 134 Performed By: #### L 500.4050, L506.1000, L501.9985, L100.0100 #### [facility] [address] [place], [address] IG% 0.200 Normal 0.0-0.9 [facility] Comment on above: Order Comment: 134 Result Comment: IG% - Immature Granulocytes (promyelocytes, myelocytes and metamyelocytes) > 1% indicates that a LEFT SHIFT is Present. Performed By: #### L 500.4050, L506.1000, L501.9985, L100.0100 #### [facility] [address] [place], [address] Lymphocytes/100 WBC (Bld) 20.2 % Normal 19-41 [facility] Comment on above: Order Comment: 134 Performed By: #### L 500.4050, L506.1000, L501.9985, L100.0100 #### [facility] [address] [place], [address] MCH (RBC) [Entitic mass] 29.0 pg Normal 27.0-32.0 [facility] Comment on above: Order Comment: 134 Performed By: #### L 500.4050, L506.1000, L501.9985, L100.0100 #### [facility] [address] [place], [address] MCHC (RBC) [Mass/Vol] 32.5 g/dL Normal 32-36 [facility] Comment on above: Order Comment: 134 Performed By: #### L 500.4050, L506.1000, L501.9985, L100.0100 #### [facility] [address] [place], [address] MCV (RBC) [Entitic vol] 89.5 fL Normal 81-99 [facility] Comment on above: Order Comment: 134 Performed By: #### L 500.4050, L506.1000, L501.9985, L100.0100 #### [facility] [address] [place], [address] Monocytes/100 WBC (Bld) 9.6 % Normal 0-10 [facility] Comment on above: Order Comment: 134 Performed By: #### L 500.4050, L506.1000, L501.9985, L100.0100 #### [facility] [address] [place], [address] Neutrophils/100 WBC (Bld) 63.1 % Normal 47-70 [facility] Comment on above: Order Comment: 134 Performed By: #### L 500.4050, L506.1000, L501.9985, L100.0100 #### [facility] [address] [place], [address] Nucleated RBC (Bld) [#/Vol] 0 10*3/uL Normal 0-5 [facility] Comment on above: Order Comment: 134 Performed By: #### L 500.4050, L506.1000, L501.9985, L100.0100 #### [facility] [address] [place], [address] Platelet mean volume (Bld) [Entitic vol] 11.0 fL Normal 6.2-12.0 [facility] Comment on above: Order Comment: 134 Performed By: #### L 500.4050, L506.1000, L501.9985, L100.0100 #### [facility] [address] [place], [address] Platelets (Bld) [#/Vol] 116 10*3/uL Low 150-450 [facility] Comment on above: Order Comment: 134 Performed By: #### L 500.4050, L506.1000, L501.9985, L100.0100 #### [facility] [address] [place], [address] RBC (Bld) [#/Vol] 4.27 10*6/uL Normal 4.2-5.4 [facility] Comment on above: Order Comment: 134 Performed By: #### L 500.4050, L506.1000, L501.9985, L100.0100 #### [facility] [address] [place], [address] RDW SD 52.1 fl High 35.1-43.9 [facility] Comment on above: Order Comment: 134 Performed By: #### L 500.4050, L506.1000, L501.9985, L100.0100 #### [facility] [address] [place], [address] WBC (Bld) [#/Vol] 4.1 10*3/uL Low 4.4-11.0 [facility] Comment on above: Order Comment: 134 Performed By: #### L 500.4050, L506.1000, L501.9985, L100.0100 #### [facility] [address] [place], [address] Carbon dioxide measurementOr dered By: Shayna Malhotra on 07-09-2024 CO2 [Moles/Vol] 25.0 mmol/L 21.0-32.0 [facility] Chloride measurementOrdered By: Shayna Malhotra on 07-09-2024 Chloride [Moles/Vol] 107 mmol/L 98-107 [facility] Comprehensive Metabolic Prof ilon 07-09-2024 Albumin [Mass/Vol] 3.1 g/dL Low 3.2-5.0 [facility] Comment on above: Order Comment: 134 Performed By: #### L 500.4050, L506.1000, L501.9985, L100.0100 #### [facility] [address] [place], [address] Albumin/Globulin [Mass ratio] 0.6 {ratio} Low 0.9-2.4 [facility] Comment on above: Order Comment: 134 Performed By: #### L 500.4050, L506.1000, L501.9985, L100.0100 #### [facility] [address] [place], [address] ALK P 126 U/L High 45-117 [facility] Comment on above: Order Comment: 134 Performed By: #### L 500.4050, L506.1000, L501.9985, L100.0100 #### [facility] [address] [place], [address] ALT [Catalytic activity/Vol] 27 U/L Normal 13-56 [facility] Comment on above: Order Comment: 134 Performed By: #### L 500.4050, L506.1000, L501.9985, L100.0100 #### [facility] [address] [place], [address] AST [Catalytic activity/Vol] 35 U/L Normal 15-37 [facility] Comment on above: Order Comment: 134 Performed By: #### L 500.4050, L506.1000, L501.9985, L100.0100 #### [facility] [address] [place], [address] Bilirubin [Mass/Vol] 0.70 mg/dL Normal 0.20-1.00 [facility] Comment on above: Order Comment: 134 Result Comment: For patients on eltrombopag therapy, use of Dimension [place] TBIL is not recommended. Performed By: #### L 500.4050, L506.1000, L501.9985, L100.0100 #### [facility] [address] [place], [address] BUN/CRE 22.2 RATIO High 10-20 [facility] Comment on above: Order Comment: 134 Performed By: #### L 500.4050, L506.1000, L501.9985, L100.0100 #### [facility] [address] [place], [address] CA,Total 9.3 mg/dL Normal 8.5-10.1 [facility] Comment on above: Order Comment: 134 Performed By: #### L 500.4050, L506.1000, L501.9985, L100.0100 #### [facility] [address] [place], [address] Chloride [Moles/Vol] 107 mmol/L Normal 98-107 [facility] Comment on above: Order Comment: 134 Performed By: #### L 500.4050, L506.1000, L501.9985, L100.0100 #### [facility] [address] [place], [address] CO2 [Moles/Vol] 25.0 mmol/L Normal 21.0-32.0 [facility] Comment on above: Order Comment: 134 Performed By: #### L 500.4050, L506.1000, L501.9985, L100.0100 #### [facility] [address] [place], [address] Creatinine [Mass/Vol] 0.76 mg/dL Normal 0.55-1.02 [facility] Comment on above: Order Comment: 134 Result Comment: The validity of the calculated GFR GFRAA in patients over 70 years has not been determined. Clinical correlation is essential. Performed By: #### L 500.4050, L506.1000, L501.9985, L100.0100 #### [facility] [address] [place], [address] EST GFR - AA 96 mL/min Normal >60 [facility] Comment on above: Order Comment: 134 Result Comment: Afri can [place] GFR Calc Performed By: #### L 500.4050, L506.1000, L501.9985, L100.0100 #### [facility] [address] [place], [address] GAP 5 Normal 5-15 [facility] Comment on above: Order Comment: 134 Performed By: #### L 500.4050, L506.1000, L501.9985, L100.0100 #### [facility] [address] [place], [address] GFR/1.73 sq M.predicted among non-blacks MDRD (S/P/Bld) [Vol rate/Area] 79 mL/min/{1.73_m2} Normal >60 [facility] Comment on above: Order Comment: 134 Result Comment: Non- GFR Calc Performed By: #### L 500.4050, L506.1000, L501.9985, L100.0100 #### [facility] [address] [place], [address] Globulin (S) [Mass/Vol] 4.9 g/dL High 2.2-4.2 [facility] Comment on above: Order Comment: 134 Performed By: #### L 500.4050, L506.1000, L501.9985, L100.0100 #### [facility] [address] [place], [address] Glucose [Mass/Vol] 168 mg/dL High 74-106 [facility] Comment on above: Order Comment: 134 Result Comment: Fast ing Glucose result greater than or equal to 126 mg/dL suggests DIABETES MELLITUS per A.D.A. criteria. Performed By: #### L 500.4050, L506.1000, L501.9985, L100.0100 #### [facility] [address] [place], [address] Potassium [Moles/Vol] 4.2 mmol/L Normal 3.5-5.1 [facility] Comment on above: Order Comment: 134 Performed By: #### L 500.4050, L506.1000, L501.9985, L100.0100 #### [facility] [address] [place], [address] Sodium [Moles/Vol] 137 mmol/L Normal 136-145 [facility] Comment on above: Order Comment: 134 Performed By: #### L 500.4050, L506.1000, L501.9985, L100.0100 #### [facility] [address] [place], [address] T PROT 8.0 g/dL Normal 6.4-8.2 [facility] Comment on above: Order Comment: 134 Performed By: #### L 500.4050, L506.1000, L501.9985, L100.0100 #### [facility] [address] [place], [address] Urea nitrogen [Mass/Vol] 17 mg/dL Normal 7-18 [facility] Comment on above: Order Comment: 134 Performed By: #### L 500.4050, L506.1000, L501.9985, L100.0100 #### [facility] [address] [place], [address] Eosinophil percentageOrdered By: Shayna Malhotra on 07-09-2024 Eosinophils/100 WBC (Bld) 5.9 % High 0-5 [facility] Erythrocyte distribution wid th (RBC) [Ratio]Ordered By: Shayna Malhotra on 07-09-2024 Erythrocyte distribution width (RBC) [Entitic vol] 52.1 fL High 35.1-43.9 [facility] Erythrocyte distribution wid th ratioOrdered By: Shayna Malhotra on 07-09-2024 Erythrocyte distribution width (RBC) [Ratio] 15.9 % High 11.6-14.6 [facility] Erythrocyte distribution wid th standard deviationOrdered By: Shayna Malhotra on 07-09-2024 Erythrocyte distribution width (RBC) [Ratio] 52.1 fl High 35.1-43.9 [facility] Estimated glomerular filtrat ion rate (GFR) AmericanOrdered By: Shayna Malhotra on 07-09-2024 Estimated GFR (MDRD) Amer 96 mL/min >60 [facility] Comment on above: GFR Calc Glomerular filtration rate ( GFR) estimationOrdered By: Shayna Malhotra on 07-09-2024 Estimated GFR (MDRD) Non-Af Amer 79 mL/min >60 [facility] Comment on above: Non- GFR Calc GFR/1.73 sq M.predicted among non-blacks MDRD (S/P/Bld) [Vol rate/Area] 79 mL/min/{1.73_m2} >60 [facility] Comment on above: Non- GFR Calc Glucose measurementOrdered B y: Shayna Malhotra on 07-09-2024 Glucose [Mass/Vol] 168 mg/dL High 74-106 [facility] Comment on above: Fasting Glucose resu lt greater than or equal to 126 mg/dL suggests DIABETES MELLITUS per A.D.A. criteria. Hematocrit Auto (Bld) [Volum e fraction]Ordered By: Shayna Malhotra on 07-09-2024 Hematocrit (Bld) [Volume fraction] 38.2 % 37-47 [facility] Hemoglobin A1con 07-09-2024 HbA1c (Bld) [Mass fraction] 6.6 % High 3.8-5.6 [facility] Comment on above: Order Comment: 134 Result Comment: Norm al < 5.7 % Prediabetic 5.7 - 6.4 % Diabetic >or= 6.5 % Please note range changes. Performed By: #### L 500.4050, L506.1000, L501.9985, L100.0100 #### [facility] [address] [place], [address] Hemoglobin A1c percentageOrd ered By: Shayna Malhotra on 07-09-2024 HbA1c (Bld) [Mass fraction] 6.6 % High 3.8-5.6 [facility] Comment on above: Normal < 5.7 % Predi abetic 5.7 - 6.4 % Diabetic >or= 6.5 % Please note range changes. Hemoglobin measurementOrdere d By: Shayna Malhotra on 07-09-2024 Hemoglobin (Bld) [Mass/Vol] 12.4 g/dL 12.0-15.0 [facility] Immature granulocytes/100 WB C Auto (Bld)Ordered By: Shayna Malhotra on 07-09-2024 Immature granulocytes/100 WBC (Bld) 0.200 % 0.0-0.9 [facility] Comment on above: IG% - Immature Granu locytes (promyelocytes, myelocytes and metamyelocytes) > 1% indicates that a LEFT SHIFT is Present. Laboratory - Chemistry and C hemistry - challengeOrdered By: Shayna Malhotra on 07-09-2024 AST [Catalytic activity/Vol] 35 U/L 15-37 [facility] Lymphocytes Auto (Unsp spec) [#/Vol]Ordered By: Shayna Malhotra on 07-09-2024 Lymphocytes (Bld) [#/Vol] 0.82 10*3/uL Low 0.83-4.51 [facility] Lymphocytes/100 WBC Auto (Un sp spec)Ordered By: Shayna Malhotra on 07-09-2024 Lymphocytes/100 WBC (Bld) 20.2 % 19-41 [facility] MCV (mean corpuscular volume ) determinationOrdered By: Shayna Malhotra on 07-09-2024 MCV (RBC) [Entitic vol] 89.5 fL 81-99 [facility] Mean corpuscular hemoglobin (MCH) determinationOrdered By: Shayna Malhotra on 07-09-2024 MCH (RBC) [Entitic mass] 29.0 pg 27.0-32.0 [facility] Mean corpuscular hemoglobin concentration (MCHC) determinationOrdered By: Shayna Malhotra on 07-09-2024 MCHC (RBC) [Mass/Vol] 32.5 g/dL 32-36 [facility] Mean platelet volume determi nationOrdered By: Shayna Malhotra on 07-09-2024 Platelet mean volume (Bld) [Entitic vol] 11.0 fL 6.2-12.0 [facility] Monocyte percentageOrdered B y: Shayna Malhotra on 07-09-2024 Monocytes/100 WBC (Bld) 9.6 % 0-10 [facility] Neutrophil percentageOrdered By: Shayna Malhotra on 07-09-2024 Neutrophils/100 WBC (Bld) 63.1 % 47-70 [facility] Nucleated red blood cell per centageOrdered By: Shayna Malhotra on 07-09-2024 Nucleated RBC/100 WBC (Bld) [Ratio] 0 % 0-5 [facility] Platelet countOrdered By: Maryanne Malhotra on 07-09-2024 Platelets (Bld) [#/Vol] 116 10*3/uL Low 150-450 [facility] Potassium measurementOrdered By: Shayna Malhotra on 07-09-2024 Potassium [Moles/Vol] 4.2 mmol/L 3.5-5.1 [facility] RBC Auto (Bld) [#/Vol]Ordere d By: Shayna Malhotra on 07-09-2024 RBC (Bld) [#/Vol] 4.27 10*6/uL 4.2-5.4 [facility] Serum anion gap measurementO rdered By: Shayna Malhotra on 07-09-2024 Anion gap [Moles/Vol] 5 mmol/L 5-15 [facility] Serum globulin measurementOr dered By: Shayna Malhotra on 07-09-2024 Globulin (S) [Mass/Vol] 4.9 g/dL High 2.2-4.2 [facility] Serum or plasma alanine burnette otransferase (ALT) measurementOrdered By: Shayna Malhotra on 07-09-2024 ALT [Catalytic activity/Vol] 27 U/L 13-56 [facility] Serum or plasma albumin kim urement (mass/volume)Ordered By: Shayna Malhotra on 07-09-2024 Albumin [Mass/Vol] 3.1 g/dL Low 3.2-5.0 [facility] Serum or plasma alkaline regina sphatase measurementOrdered By: Shayna Malhotra on 07-09-2024 ALP [Catalytic activity/Vol] 126 U/L High 45-117 [facility] Serum or plasma calcium kim urement (mass/volume)Ordered By: Shayna Malhotra on 07-09-2024 Calcium [Mass/Vol] 9.3 mg/dL 8.5-10.1 [facility] Serum or plasma creatinine m easurement (mass/volume)Ordered By: Shayna Malhotra on 07-09-2024 Creatinine [Mass/Vol] 0.76 mg/dL 0.55-1.02 [facility] Comment on above: The validity of the calculated GFR & GFRAA in patients over 70 years has not been determined. Clinical correlation is essential. Serum or plasma urea nitroge n measurement (mass/volume)Ordered By: Shayna Malhotra on 07-09-2024 Urea nitrogen [Mass/Vol] 17 mg/dL 7-18 [facility] Sodium levelOrdered By: Paty Malhotra on 07-09-2024 Sodium [Moles/Vol] 137 mmol/L 136-145 [facility] Total proteinOrdered By: Evi Malhotra on 07-09-2024 Protein [Mass/Vol] 8.0 g/dL 6.4-8.2 [facility] Vitamin D,25 Hydroxyon 07-09 Vitamin D 25-OH 44.8 ng/mL Normal [facility] Comment on above: Order Comment: 134 Result Comment: Maricarmen min D 25(OH) Status Range Deficiency <20 ng/mL (50nmol/L) Insufficiency 20 - 30 ng/mL (50 - 75 nmol/L) Sufficiency 30 - 100 ng/mL (75 - 250 nmol/L) Toxicity >100 ng/mL (>250 nmol/L) Performed By: #### L 500.4050, L506.1000, L501.9985, L100.0100 #### [facility] [address] [place], [address] White blood cell (WBC) count Ordered By: Shayna Malhotra on 07-09-2024 WBC (Bld) [#/Vol] 4.1 10*3/uL Low 4.4-11.0 [facility] MR/BMS.Bon 07-04-2024 MR/BMS.[facility] [address] [place] [address] OFFICE VISIT Date of Service: 07/04/24 MR#: [id number] Acct: [id number] Name: VIDA NINA Rep #: [id number] : 1950 Provider: Dr. 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 Normal [facility] MR/BMS.Mily 05-28-2024 MR/BMS.[facility] [address] [facility] [place] [address] OFFICE VISIT Date of Service: 05/28/24 MR#: [id number] Acct: [id number] Name: VIDA NINA Rep #: [id number] : 1950 Provider: Dr. Shayna gomes MD Age/Sex: 73/F Location: [facility] Status: Signed Intake Vital Signs 01/09/23 [...] Intake Visit Reasons: Annual/Physical Chief Complaint: annual/physical Commercial Art Instructor Required: No Accompanied by: Self Is patient [...] [facility]28[facility]24 History Lite Strips) [facility] 05/28/24 History Lite Meter kit) lancets 28 gauge ([facility] 11/23/21 05/28/24 History Lancets) nystatin 100,000 unit/gram topical 1 applic topical TID #0 grams 11/24/21 05/28/24 Rx powder ([facility]) quetiapine 100 mg tablet 300 mg [...] here in the office. She lives at [facility]. She checked herself in there a few years ago as she felt it was in (more content not included)... Normal [facility] Absolute lymphocyte countOrd ered By: Shayna Malhotra on 07-08-2023 Lymphocytes Auto (Unsp spec) [#/Vol] 0.97 10*3/uL 0.83-4.51 [facility] Automated lymphocyte count a s percentage of total leukocytesOrdered By: Shayna Malhotra on 07-08-2023 Lymphocytes/100 WBC Auto (Unsp spec) 21.6 % 19-41 [facility] Basophil percentageOrdered B y: Shayna Malhotra on 07-08-2023 Basophils/100 WBC (Bld) 0.7 % 0-1 [facility] Bilirubin [Mass/Vol] 0.60 mg/dL 0.20-1.00 [facility] Comment on above: For patients on eltr ombopag therapy, use of Dimension [place] TBIL is not recommended. Chloride [Moles/Vol] 109 mmol/L 98-107 [facility] Eosinophils/100 WBC (Bld) 2.4 % 0-5 [facility] Glucose [Mass/Vol] 204 mg/dL 74-106 [facility] Comment on above: Glucose result great er than or equal to 200 mg/dLsuggests DIABETES MELLITUS per A.D.A. criteria. Hemoglobin (Bld) [Mass/Vol] 12.6 g/dL 12.0-15.0 [facility] Monocytes/100 WBC (Bld) 8.7 % 0-10 [facility] Neutrophils (Bld) [#/Vol] 3.0 10*3/uL 2.0-7.7 [facility] Neutrophils/100 WBC (Bld) 66.4 % 47-70 [facility] Potassium [Moles/Vol] 4.4 mmol/L 3.5-5.1 [facility] Protein [Mass/Vol] 8.0 g/dL 6.4-8.2 [facility] Sodium [Moles/Vol] 137 mmol/L 136-145 [facility] WBC (Bld) [#/Vol] 4.5 10*3/uL 4.4-11.0 [facility] Determination of erythrocyte mean corpuscular volume (MCV)Ordered By: Shayna Malhotra on 07-08-2023 MCV (RBC) [Entitic vol] 90.3 fL 81-99 [facility] Erythrocyte distribution wid th ratioOrdered By: Shayna Malhotra on 07-08-2023 Erythrocyte distribution width (RBC) [Ratio] 15.5 % 11.6-14.6 [facility] Erythrocyte distribution wid th standard deviationOrdered By: Shayna Malhotra on 07-08-2023 Erythrocyte distribution width (RBC) [Entitic vol] 51.9 fL 35.1-43.9 [facility] Hematocrit Auto (Bld) [Volum e fraction]Ordered By: Shayna Malhotra on 07-08-2023 Hematocrit (Bld) [Volume fraction] 39.9 % 37-47 [facility] Immature granulocytes/100 WB C Auto (Bld)Ordered By: Shayna Malhotra on 07-08-2023 Immature granulocytes/100 WBC (Bld) 0.200 % 0.0-0.9 [facility] Comment on above: IG% - Immature Granu locytes (promyelocytes, myelocytes and metamyelocytes) > 1% indicates that a LEFT SHIFT is Present. Laboratory - Chemistry and C hemistry - challengeOrdered By: Shayna Malhotra on 07-08-2023 Albumin/Globulin [Mass ratio] 0.7 {ratio} 0.9-2.4 [facility] ALP [Catalytic activity/Vol] 126 U/L 45-117 [facility] ALT [Catalytic activity/Vol] 34 U/L 13-56 [facility] CO2 [Moles/Vol] 24.0 mmol/L 21.0-32.0 [facility] Globulin (S) [Mass/Vol] 4.7 g/dL 2.2-4.2 [facility] Urea nitrogen/Creatinine [Mass ratio] 17.2 mg/mg 10-20 [facility] - Hematology and Cell countsOrdered By: Shayna Malhotra on 07-08-2023 MCH (RBC) [Entitic mass] 28.5 pg 27.0-32.0 [facility] MCHC (RBC) [Mass/Vol] 31.6 g/dL 32-36 [facility] Nucleated RBC/100 WBC (Bld) [Ratio] 0 % 0-5 [facility] Platelets (Bld) [#/Vol] 130 10*3/uL 150-450 [facility] No Panel InformationOrdered By: Shayna Malhotra on 07-08-2023 Estimated GFR (MDRD) Amer 83 mL/min >60 [facility] Comment on above: GFR Calc Estimated GFR (MDRD) Non-Af Amer 68 mL/min >60 [facility] Comment on above: Non- GFR Calc Vitamin D 25-Hydroxy 36.2 ng/mL [facility] Comment on above: Vitamin D 25(OH) Sta tus Range Deficiency <20 ng/mL (50nmol/L) Insufficiency 20 - 30 ng/mL (50 - 75 nmol/L) Sufficiency 30 - 100 ng/mL (75 - 250 nmol/L) Toxicity >100 ng/mL (>250 nmol/L) Platelet mean volume Robert-Ec ker (Bld) [Entitic vol]Ordered By: Shayna Malhotra on 07-08-2023 Platelet mean volume (Bld) [Entitic vol] 11.5 fL 6.2-12.0 [facility] RBC Auto (Bld) [#/Vol]Ordere d By: Shayna Malhotra on 07-08-2023 RBC (Bld) [#/Vol] 4.42 10*6/uL 4.2-5.4 [facility] Serum or plasma calcium kim urement (mass/volume)Ordered By: Shayna Malhotra on 07-08-2023 Calcium [Mass/Vol] 9.3 mg/dL 8.5-10.1 [facility] Serum or plasma creatinine m easurement (mass/volume)Ordered By: Shayna Malhotra on 07-08-2023 Creatinine [Mass/Vol] 0.87 mg/dL 0.55-1.02 [facility] Comment on above: The validity of the calculated GFR & GFRAA in patients over 70 years has not been determined. Clinical correlation is essential. Serum or plasma urea nitroge n measurement (mass/volume)Ordered By: Shayna Malhotra on 07-08-2023 Urea nitrogen [Mass/Vol] 15 mg/dL 7-18 [facility] Thin prep Papanicolaou smear with manual screeningOrdered By: Shayna Malhotra on 07-08-2023 Thin prep Papanicolaou smear with manual screening 3.3 g/dL 3.2-5.0 [facility] Thin prep Papanicolaou smear with manual screening 38 U/L 15-37 [facility] Thin prep Papanicolaou smear with manual screening 4 5-15 [facility] Whole blood hemoglobin A1c/t otal hemoglobin ratio (mass fraction)Ordered By: Shayna Malhotra on 07-08-2023 HbA1c (Bld) [Mass fraction] 7.5 % 3.8-5.6 [facility] Comment on above: Normal < 5.7 % Predi abetic 5.7 - 6.4 % Diabetic >or= 6.5 % Please note range changes. Absolute lymphocyte countOrd ered By: [facility] on 04-08-2023 Lymphocytes Auto (Unsp spec) [#/Vol] 1.16 10*3/uL 0.83-4.51 [facility] Basophil percentageOrdered B y: [facility] on 04-08-2023 Basophils/100 WBC (Bld) 0.6 % 0-1 [facility] Bilirubin [Mass/Vol] 0.60 mg/dL 0.20-1.00 [facility] Comment on above: For patients on eltr ombopag therapy, use of Dimension [place] TBIL is not recommended. Chloride [Moles/Vol] 106 mmol/L 98-107 [facility] Eosinophils/100 WBC (Bld) 2.6 % 0-5 [facility] Glucose [Mass/Vol] 200 mg/dL 74-106 [facility] Comment on above: Glucose result great er than or equal to 200 mg/dLsuggests DIABETES MELLITUS per A.D.A. criteria. Neutrophils (Bld) [#/Vol] 3.3 10*3/uL 2.0-7.7 [facility] Neutrophils/100 WBC (Bld) 65.4 % 47-70 [facility] Potassium [Moles/Vol] 4.2 mmol/L 3.5-5.1 [facility] Protein [Mass/Vol] 8.1 g/dL 6.4-8.2 [facility] Sodium [Moles/Vol] 136 mmol/L 136-145 [facility] WBC (Bld) [#/Vol] 5.0 10*3/uL 4.4-11.0 [facility] Blood erythrocytes count (nu mber/volume)Ordered By: [facility] on 04-08-2023 RBC (Bld) [#/Vol] 4.50 10*6/uL 4.2-5.4 [facility] Blood hemoglobin measurement (mass/volume)Ordered By: [facility] on 04-08-2023 Hemoglobin (Bld) [Mass/Vol] 12.9 g/dL 12.0-15.0 [facility] Blood lymphocytes/100 leukoc ytesOrdered By: [facility] on 04-08-2023 Lymphocytes/100 WBC (Bld) 23.2 % 19-41 [facility] Blood monocytes/100 leukocyt esOrdered By: [facility] on 04-08-2023 Monocytes/100 WBC (Bld) 7.8 % 0-10 [facility] Blood platelet mean volumeOr dered By: [facility] on 04-08-2023 Platelet mean volume (Bld) [Entitic vol] 11.9 fL 6.2-12.0 [facility] Determination of erythrocyte mean corpuscular volume (MCV)Ordered By: [facility] on 04-08-2023 MCV (RBC) [Entitic vol] 89.6 fL 81-99 [facility] Hematocrit Auto (Bld) [Volum e fraction]Ordered By: [facility] on 04-08-2023 Hematocrit (Bld) [Volume fraction] 40.3 % 37-47 [facility] - Chemistry and C hemistry - challengeOrdered By: [facility] on 04-08-2023 ALP [Catalytic activity/Vol] 126 U/L 45-117 [facility] ALT [Catalytic activity/Vol] 35 U/L 13-56 [facility] CO2 [Moles/Vol] 24.0 mmol/L 21.0-32.0 [facility] Globulin (S) [Mass/Vol] 4.9 g/dL 2.2-4.2 [facility] Urea nitrogen/Creatinine [Mass ratio] 17.1 mg/mg 10-20 [facility] - Hematology and Cell countsOrdered By: [facility] on 04-08-2023 Erythrocyte distribution width (RBC) [Entitic vol] 51.4 fL 35.1-43.9 [facility] Erythrocyte distribution width (RBC) [Ratio] 15.6 % 11.6-14.6 [facility] Immature granulocytes/100 WBC (Bld) 0.400 % 0.0-0.9 [facility] Comment on above: IG% - Immature Granu locytes (promyelocytes, myelocytes and metamyelocytes) > 1% indicates that a LEFT SHIFT is Present. MCH (RBC) [Entitic mass] 28.7 pg 27.0-32.0 [facility] Nucleated RBC/100 WBC (Bld) [Ratio] 0 % 0-5 [facility] MCHC Auto (RBC) [Mass/Vol]Or dered By: [facility] on 04-08-2023 MCHC (RBC) [Mass/Vol] 32.0 g/dL 32-36 [facility] No Panel InformationOrdered By: [facility] on 04-08-2023 Estimated GFR (MDRD) Amer 82 mL/min >60 [facility] Comment on above: GFR Calc Estimated GFR (MDRD) Non-Af Amer 68 mL/min >60 [facility] Comment on above: Non- GFR Calc Vitamin D 25-Hydroxy 43.2 ng/mL [facility] Comment on above: Vitamin D 25(OH) Sta tus Range Deficiency <20 ng/mL (50nmol/L) Insufficiency 20 - 30 ng/mL (50 - 75 nmol/L) Sufficiency 30 - 100 ng/mL (75 - 250 nmol/L) Toxicity >100 ng/mL (>250 nmol/L) Platelets bldOrdered By: [facility] on 04-08-[facility]23 Platelets (Bld) [#/Vol] 119 10*3/uL 150-450 [facility] Serum or plasma albumin kim urement (mass/volume)Ordered By: [facility] on 04-08-2023 Albumin [Mass/Vol] 3.2 g/dL 3.2-5.0 [facility] Serum or plasma albumin/glob ulin mass ratioOrdered By: [facility] on 04-08-2023 Albumin/Globulin [Mass ratio] 0.7 {ratio} 0.9-2.4 [facility] Serum or plasma calcium kim urement (mass/volume)Ordered By: [facility] on 04-08-2023 Calcium [Mass/Vol] 9.1 mg/dL 8.5-10.1 [facility] Serum or plasma creatinine m easurement (mass/volume)Ordered By: [facility] on 04-08-2023 Creatinine [Mass/Vol] 0.88 mg/dL 0.55-1.02 [facility] Comment on above: The validity of the calculated GFR & GFRAA in patients over 70 years has not been determined. Clinical correlation is essential. Serum or plasma urea nitroge n measurement (mass/volume)Ordered By: [facility] on 04-08-2023 Urea nitrogen [Mass/Vol] 15 mg/dL 7-18 [facility] Thin prep Papanicolaou smear with manual screeningOrdered By: [facility] on 04-08-2023 Thin prep Papanicolaou smear with manual screening 36 U/L 15-37 [facility] Thin prep Papanicolaou smear with manual screening 6 5-15 [facility] Whole blood hemoglobin A1c/t otal hemoglobin ratio (mass fraction)Ordered By: [facility] on 04-08-2023 HbA1c (Bld) [Mass fraction] 7.5 % 3.8-5.6 [facility] Comment on above: Normal < 5.7 % Predi abetic 5.7 - 6.4 % Diabetic >or= 6.5 % Please note range changes. Absolute lymphocyte countOrd ered By: Shayna Malhotra on 10-13-2022 Lymphocytes Auto (Unsp spec) [#/Vol] 1.32 10*3/uL 0.83-4.51 [facility] Basophil percentageOrdered B y: Shayna Malhotra on 10-13-2022 Basophils/100 WBC (Bld) 0.6 % 0-1 [facility] Bilirubin [Mass/Vol] 0.40 mg/dL 0.20-1.00 [facility] Comment on above: For patients on eltr ombopag therapy, use of Dimension [place] TBIL is not recommended. Chloride [Moles/Vol] 106 mmol/L 98-107 [facility] Eosinophils/100 WBC (Bld) 3.5 % 0-5 [facility] Glucose [Mass/Vol] 232 mg/dL 74-106 [facility] Comment on above: Glucose result great er than or equal to 200 mg/dLsuggests DIABETES MELLITUS per A.D.A. criteria. Neutrophils (Bld) [#/Vol] 3.2 10*3/uL 2.0-7.7 [facility] Neutrophils/100 WBC (Bld) 60.7 % 47-70 [facility] Potassium [Moles/Vol] 4.7 mmol/L 3.5-5.1 [facility] Protein [Mass/Vol] 8.1 g/dL 6.4-8.2 [facility] Sodium [Moles/Vol] 137 mmol/L 136-145 [facility] WBC (Bld) [#/Vol] 5.2 10*3/uL 4.4-11.0 [facility] Blood erythrocytes count (nu mber/volume)Ordered By: Shayna Malhotra on 10-13-2022 RBC (Bld) [#/Vol] 4.62 10*6/uL 4.2-5.4 [facility] Blood hemoglobin measurement (mass/volume)Ordered By: Shayna Malhotra on 10-13-2022 Hemoglobin (Bld) [Mass/Vol] 13.1 g/dL 12.0-15.0 [facility] Blood lymphocytes/100 leukoc ytesOrdered By: Shayna Malhotra on 10-13-2022 Lymphocytes/100 WBC (Bld) 25.4 % 19-41 [facility] Blood monocytes/100 leukocyt esOrdered By: Shayna Malhotra on 10-13-2022 Monocytes/100 WBC (Bld) 9.6 % 0-10 [facility] Blood platelet mean volumeOr dered By: Shayna Malhotra on 10-13-2022 Platelet mean volume (Bld) [Entitic vol] 11.1 fL 6.2-12.0 [facility] Determination of erythrocyte mean corpuscular volume (MCV)Ordered By: Shayna Malhotra on 10-13-2022 MCV (RBC) [Entitic vol] 90.3 fL 81-99 [facility] Hematocrit Auto (Bld) [Volum e fraction]Ordered By: Shayna Malhotra on 10-13-2022 Hematocrit (Bld) [Volume fraction] 41.7 % 37-47 [facility] Laboratory - Chemistry and C hemistry - challengeOrdered By: Shayna Malhotra on 10-13-2022 ALP [Catalytic activity/Vol] 153 U/L 45-117 [facility] ALT [Catalytic activity/Vol] 45 U/L 13-56 [facility] CO2 [Moles/Vol] 25.0 mmol/L 21.0-32.0 [facility] Globulin (S) [Mass/Vol] 4.9 g/dL 2.2-4.2 [facility] Urea nitrogen/Creatinine [Mass ratio] 15.7 mg/mg 10-20 [facility] Laboratory - Hematology and Cell countsOrdered By: Shayna Malhotra on 10-13-2022 Erythrocyte distribution width (RBC) [Entitic vol] 50.5 fL 35.1-43.9 [facility] Erythrocyte distribution width (RBC) [Ratio] 15.1 % 11.6-14.6 [facility] Immature granulocytes/100 WBC (Bld) 0.200 % 0.0-0.9 [facility] Comment on above: IG% - Immature Granu locytes (promyelocytes, myelocytes and metamyelocytes) > 1% indicates that a LEFT SHIFT is Present. MCH (RBC) [Entitic mass] 28.4 pg 27.0-32.0 [facility] Nucleated RBC/100 WBC (Bld) [Ratio] 0 % 0-5 [facility] MCHC Auto (RBC) [Mass/Vol]Or dered By: Shayna Malhotra on 10-13-2022 MCHC (RBC) [Mass/Vol] 31.4 g/dL 32-36 [facility] No Panel InformationOrdered By: Shayna Malhotra on 10-13-2022 Estimated GFR (MDRD) Amer 80 mL/min >60 [facility] Comment on above: GFR Calc Estimated GFR (MDRD) Non-Af Amer 66 mL/min >60 [facility] Comment on above: Non- GFR Calc Vitamin D 25-Hydroxy 57.3 ng/mL [facility] Comment on above: Vitamin D 25(OH) Sta tus Range Deficiency <20 ng/mL (50nmol/L) Insufficiency 20 - 30 ng/mL (50 - 75 nmol/L) Sufficiency 30 - 100 ng/mL (75 - 250 nmol/L) Toxicity >100 ng/mL (>250 nmol/L) Platelets bldOrdered By: Evi Malhotra on 10-13-2022 Platelets (Bld) [#/Vol] 139 10*3/uL 150-450 [facility] Serum or plasma albumin kim urement (mass/volume)Ordered By: Shayna Malhotra on 10-13-2022 Albumin [Mass/Vol] 3.2 g/dL 3.2-5.0 [facility] Serum or plasma albumin/glob ulin mass ratioOrdered By: Shayna Malhotra on 10-13-2022 Albumin/Globulin [Mass ratio] 0.7 {ratio} 0.9-2.4 [facility] Serum or plasma calcium kim urement (mass/volume)Ordered By: Shayna Malhotra on 05-10-2023 Calcium [Mass/Vol] 9.5 mg/dL 8.5-10.1 [facility] Serum or plasma creatinine m easurement (mass/volume)Ordered By: Shayna Malhotra on 10-13-2022 Creatinine [Mass/Vol] 0.89 mg/dL 0.55-1.02 [facility] Comment on above: The validity of the calculated GFR & GFRAA in patients over 70 years has not been determined. Clinical correlation is essential. Serum or plasma urea nitroge n measurement (mass/volume)Ordered By: Shayna Malhotra on 10-13-2022 Urea nitrogen [Mass/Vol] 14 mg/dL 7-18 [facility] Thin prep Papanicolaou smear with manual screeningOrdered By: Shayna Malhotra on 10-13-2022 Thin prep Papanicolaou smear with manual screening 49 U/L 15-37 [facility] Thin prep Papanicolaou smear with manual screening 6 5-15 [facility] No Panel InformationOrdered By: Shayna Malhotra on 08-12-2022 C-Peptide 2.9 ng/mL 1.1-4.4 [facility] Comment on above: C-Peptide reference interval is for fasting patients.Performed at: [facility] Director: Suhas Deal PhD, Phone: [phone] Absolute lymphocyte countOrd ered By: Shayna Malhotra on 07-13-2022 Lymphocytes Auto (Unsp spec) [#/Vol] 1.18 10*3/uL 0.83-4.51 [facility] Basophil percentageOrdered B y: Shayna Malhotra on 07-13-2022 Basophils/100 WBC (Bld) 0.7 % 0-1 [facility] Bilirubin [Mass/Vol] 0.90 mg/dL 0.20-1.00 [facility] Comment on above: For patients on eltr ombopag therapy, use of [employer] [place] TBIL is not recommended. Chloride [Moles/Vol] 104 mmol/L 98-107 [facility] Eosinophils/100 WBC (Bld) 3.3 % 0-5 [facility] Glucose [Mass/Vol] 314 mg/dL 74-106 [facility] Comment on above: Glucose result great er than or equal to 200 mg/dLsuggests DIABETES MELLITUS per A.D.A. criteria. Neutrophils (Bld) [#/Vol] 3.5 10*3/uL 2.0-7.7 [facility] Neutrophils/100 WBC (Bld) 64.8 % 47-70 [facility] Potassium [Moles/Vol] 5.1 mmol/L 3.5-5.1 [facility] Comment on above: Slight Hemolysis, Re sult may be falsely increased. Protein [Mass/Vol] 8.2 g/dL 6.4-8.2 [facility] Sodium [Moles/Vol] 135 mmol/L 136-145 [facility] WBC (Bld) [#/Vol] 5.4 10*3/uL 4.4-11.0 [facility] Blood erythrocytes count (nu mber/volume)Ordered By: Shayna Malhotra on 07-13-2022 RBC (Bld) [#/Vol] 4.51 10*6/uL 4.2-5.4 [facility] Blood hemoglobin measurement (mass/volume)Ordered By: Shayna Malhotra on 07-13-2022 Hemoglobin (Bld) [Mass/Vol] 12.8 g/dL 12.0-15.0 [facility] Blood lymphocytes/100 leukoc ytesOrdered By: Shayna Malhotra on 07-13-2022 Lymphocytes/100 WBC (Bld) 21.9 % 19-41 [facility] Blood monocytes/100 leukocyt esOrdered By: Shayna Malhotra on 07-13-2022 Monocytes/100 WBC (Bld) 9.1 % 0-10 [facility] Blood platelet mean volumeOr dered By: Shayna Malhotra on 07-13-2022 Platelet mean volume (Bld) [Entitic vol] 11.2 fL 6.2-12.0 [facility] Determination of erythrocyte mean corpuscular volume (MCV)Ordered By: Shayna Malhotra on 07-13-2022 MCV (RBC) [Entitic vol] 87.1 fL 81-99 [facility] Hematocrit Auto (Bld) [Volum e fraction]Ordered By: Shayna Malhotra on 07-13-2022 Hematocrit (Bld) [Volume fraction] 39.3 % 37-47 [facility] Laboratory - Chemistry and C hemistry - challengeOrdered By: Shayna Malhotra on 07-13-2022 ALP [Catalytic activity/Vol] 159 U/L 45-117 [facility] ALT [Catalytic activity/Vol] 35 U/L 13-56 [facility] CO2 [Moles/Vol] 23.0 mmol/L 21.0-32.0 [facility] Globulin (S) [Mass/Vol] 4.9 g/dL 2.2-4.2 [facility] Urea nitrogen/Creatinine [Mass ratio] 16.6 mg/mg 10-20 [facility] Laboratory - Hematology and Cell countsOrdered By: Shayna Malhotra on 07-13-2022 Erythrocyte distribution width (RBC) [Entitic vol] 49.6 fL 35.1-43.9 [facility] Erythrocyte distribution width (RBC) [Ratio] 15.7 % 11.6-14.6 [facility] Immature granulocytes/100 WBC (Bld) 0.200 % 0.0-0.9 [facility] Comment on above: IG% - Immature Granu locytes (promyelocytes, myelocytes and metamyelocytes) > 1% indicates that a LEFT SHIFT is Present. MCH (RBC) [Entitic mass] 28.4 pg 27.0-32.0 [facility] Nucleated RBC/100 WBC (Bld) [Ratio] 0 % 0-5 [facility] MCHC Auto (RBC) [Mass/Vol]Or dered By: Shayna Malhotra on 07-13-2022 MCHC (RBC) [Mass/Vol] 32.6 g/dL 32-36 [facility] No Panel InformationOrdered By: Shayna Malhotra on 07-13-2022 Estimated GFR (MDRD) Amer 74 mL/min >60 [facility] Comment on above: GFR Calc Estimated GFR (MDRD) Non-Af Amer 61 mL/min >60 [facility] Comment on above: Non- GFR Calc Vitamin D 25-Hydroxy 47.5 ng/mL [facility] Comment on above: Vitamin D 25(OH) Sta tus Range Deficiency <20 ng/mL (50nmol/L) Insufficiency 20 - 30 ng/mL (50 - 75 nmol/L) Sufficiency 30 - 100 ng/mL (75 - 250 nmol/L) Toxicity >100 ng/mL (>250 nmol/L) Platelets bldOrdered By: Evi Malhotra on 07-13-2022 Platelets (Bld) [#/Vol] 132 10*3/uL 150-450 [facility] Serum or plasma albumin kim urement (mass/volume)Ordered By: Shayna Malhotra on 07-13-2022 Albumin [Mass/Vol] 3.3 g/dL 3.2-5.0 [facility] Serum or plasma albumin/glob ulin mass ratioOrdered By: Shayna Malhotra on 07-13-2022 Albumin/Globulin [Mass ratio] 0.7 {ratio} 0.9-2.4 [facility] Serum or plasma calcium kim urement (mass/volume)Ordered By: Shayna Malhotra on 07-13-2022 Calcium [Mass/Vol] 9.6 mg/dL 8.5-10.1 [facility] Serum or plasma creatinine m easurement (mass/volume)Ordered By: Shayna Mahlotra on 07-13-2022 Creatinine [Mass/Vol] 0.97 mg/dL 0.55-1.02 [facility] Comment on above: The validity of the calculated GFR & GFRAA in patients over 70 years has not been determined. Clinical correlation is essential. Serum or plasma urea nitroge n measurement (mass/volume)Ordered By: Shayna Malhotra on 07-13-2022 Urea nitrogen [Mass/Vol] 16 mg/dL 7-18 [facility] Thin prep Papanicolaou smear with manual screeningOrdered By: Shayna Malhotra on 07-13-2022 Thin prep Papanicolaou smear with manual screening 48 U/L 15-37 [facility] Comment on above: Slight Hemolysis, Re sult may be falsely increased. Thin prep Papanicolaou smear with manual screening 8 5-15 [facility] Absolute lymphocyte countOrd ered By: [facility] on 06-08-2022 Lymphocytes Auto (Unsp spec) [#/Vol] 1.23 10*3/uL 0.83-4.51 [facility] Basophil percentageOrdered B y: [facility] on 06-08-2022 Basophils/100 WBC (Bld) 0.6 % 0-1 [facility] Bilirubin [Mass/Vol] 0.50 mg/dL 0.20-1.00 [facility] Comment on above: For patients on eltr ombopag therapy, use of [employer] [place] TBIL is not recommended. Chloride [Moles/Vol] 103 mmol/L 98-107 [facility] Cholesterol [Mass/Vol] 116 mg/dL <200 [facility] Comment on above: <200 mg/dL Desirable 200-240 mg/dL Borderline >240 mg/dL High Risk Eosinophils/100 WBC (Bld) 3.3 % 0-5 [facility] Glucose [Mass/Vol] 266 mg/dL 74-106 [facility] Comment on above: Glucose result great er than or equal to 200 mg/dLsuggests DIABETES MELLITUS per A.D.A. criteria. Neutrophils (Bld) [#/Vol] 2.9 10*3/uL 2.0-7.7 [facility] Neutrophils/100 WBC (Bld) 61.4 % 47-70 [facility] Potassium [Moles/Vol] 4.3 mmol/L 3.5-5.1 [facility] Protein [Mass/Vol] 7.6 g/dL 6.4-8.2 [facility] Sodium [Moles/Vol] 134 mmol/L 136-145 [facility] Triglyceride [Mass/Vol] 86 mg/dL <199 [facility] Comment on above: The drugs N-Acetylcy steine and Metamizole may falsely depress this assay.Serum Triglycerides Reference Interval Normal <150 mg/dL Borderline high 150 - 199 mg/dL High 200 - 499 mg/dL Very High > or = 500 mg/dL WBC (Bld) [#/Vol] 4.8 10*3/uL 4.4-11.0 [facility] Blood erythrocytes count (nu mber/volume)Ordered By: [facility] on 06-08-2022 RBC (Bld) [#/Vol] 4.47 10*6/uL 4.2-5.4 [facility] Blood hemoglobin measurement (mass/volume)Ordered By: [facility] on 06-08-2022 Hemoglobin (Bld) [Mass/Vol] 12.4 g/dL 12.0-15.0 [facility] Blood lymphocytes/100 leukoc ytesOrdered By: [facility] on 06-08-2022 Lymphocytes/100 WBC (Bld) 25.7 % 19-41 [facility] Blood monocytes/100 leukocyt esOrdered By: [facility] on 06-08-2022 Monocytes/100 WBC (Bld) 8.8 % 0-10 [facility] Blood platelet mean volumeOr dered By: [facility] on 06-08-2022 Platelet mean volume (Bld) [Entitic vol] 11.1 fL 6.2-12.0 [facility] Determination of erythrocyte mean corpuscular volume (MCV)Ordered By: [facility] on 06-08-2022 MCV (RBC) [Entitic vol] 88.8 fL 81-99 [facility] Hematocrit Auto (Bld) [Volum e fraction]Ordered By: [facility] on 06-08-2022 Hematocrit (Bld) [Volume fraction] 39.7 % 37-47 [facility] Laboratory - Chemistry and C hemistry - challengeOrdered By: [facility] on 06-08-2022 ALP [Catalytic activity/Vol] 142 U/L 45-117 [facility] ALT [Catalytic activity/Vol] 36 U/L 13-56 [facility] CO2 [Moles/Vol] 22.0 mmol/L 21.0-32.0 [facility] Globulin (S) [Mass/Vol] 4.8 g/dL 2.2-4.2 [facility] Urea nitrogen/Creatinine [Mass ratio] 17.1 mg/mg 10-20 [facility] Laboratory - Hematology and Cell countsOrdered By: [facility] on 06-08-2022 Erythrocyte distribution width (RBC) [Entitic vol] 48.8 fL 35.1-43.9 [facility] Erythrocyte distribution width (RBC) [Ratio] 14.9 % 11.6-14.6 [facility] Immature granulocytes/100 WBC (Bld) 0.200 % 0.0-0.9 [facility] Comment on above: IG% - Immature Granu locytes (promyelocytes, myelocytes and metamyelocytes) > 1% indicates that a LEFT SHIFT is Present. MCH (RBC) [Entitic mass] 27.7 pg 27.0-32.0 [facility] Nucleated RBC/100 WBC (Bld) [Ratio] 0 % 0-5 [facility] MCHC Auto (RBC) [Mass/Vol]Or dered By: [facility] on 06-08-2022 MCHC (RBC) [Mass/Vol] 31.2 g/dL 32-36 [facility] No Panel InformationOrdered By: [facility] on 06-08-2022 Estimated GFR (MDRD) Amer 82 mL/min >60 [facility] Comment on above: GFR Calc Estimated GFR (MDRD) Non-Af Amer 68 mL/min >60 [facility] Comment on above: Non- GFR Calc Vitamin D 25-Hydroxy 56.8 ng/mL [facility] Comment on above: Vitamin D 25(OH) Sta tus Range Deficiency <20 ng/mL (50nmol/L) Insufficiency 20 - 30 ng/mL (50 - 75 nmol/L) Sufficiency 30 - 100 ng/mL (75 - 250 nmol/L) Toxicity >100 ng/mL (>250 nmol/L) Platelets bldOrdered By: [facility] on 06-08-2022 Platelets (Bld) [#/Vol] 145 10*3/uL 150-450 [facility] Serum or plasma albumin kim urement (mass/volume)Ordered By: [facility] on 06-08-2022 Albumin [Mass/Vol] 2.8 g/dL 3.2-5.0 [facility] Serum or plasma albumin/glob ulin mass ratioOrdered By: [facility] on 06-08-2022 Albumin/Globulin [Mass ratio] 0.6 {ratio} 0.9-2.4 [facility] Serum or plasma calcium kim urement (mass/volume)Ordered By: [facility] on 06-08-2022 Calcium [Mass/Vol] 9.0 mg/dL 8.5-10.1 [facility] Serum or plasma cholesterol in HDL measurement (mass/volume)Ordered By: [facility] on 06-08-2022 Cholesterol in HDL [Mass/Vol] 58 mg/dL >40 [facility] Comment on above: The drugs N-Acetylcy steine and Metamizole may falsely depress this assay. Reference Range HDL <40 mg/dL Low HDL Cholesterol HDL >or= 60 mg/dL High HDL Cholesterol Serum or plasma cholesterol in VLDL measurement (mass/volume)Ordered By: [facility] on 06-08-2022 Cholesterol in VLDL [Mass/Vol] 17 mg/dL 5-40 [facility] Serum or plasma creatinine m easurement (mass/volume)Ordered By: [facility] on 06-08-2022 Creatinine [Mass/Vol] 0.88 mg/dL 0.55-1.02 [facility] Comment on above: The validity of the calculated GFR & GFRAA in patients over 70 years has not been determined. Clinical correlation is essential. Serum or plasma low density lipoprotein (LDL) cholesterol measurement (mass/volume)Ordered By: [facility] on 06-08-2022 Cholesterol in LDL [Mass/Vol] 41 mg/dL 0-130 [facility] Serum or plasma urea nitroge n measurement (mass/volume)Ordered By: [facility] on 06-08-2022 Urea nitrogen [Mass/Vol] 15 mg/dL 7-18 [facility] Thin prep Papanicolaou smear with manual screeningOrdered By: [facility] on 06-08-2022 Thin prep Papanicolaou smear with manual screening 39 U/L 15-37 [facility] Thin prep Papanicolaou smear with manual screening 9 5-15 [facility] Whole blood hemoglobin A1c/t otal hemoglobin ratio (mass fraction)Ordered By: [facility] on 06-08-2022 HbA1c (Bld) [Mass fraction] 8.8 % 3.8-5.6 [facility] Comment on above: Normal < 5.7 % Predi abetic 5.7 - 6.4 % Diabetic >or= 6.5 % Please note range changes. Absolute lymphocyte countOrd ered By: Shayna Malhotra on 04-13-2022 Lymphocytes Auto (Unsp spec) [#/Vol] 1.30 10*3/uL 0.83-4.51 [facility] Basophil percentageOrdered B y: Shayna Malhotra on 04-13-2022 Basophils/100 WBC (Bld) 0.2 % 0-1 [facility] Bilirubin [Mass/Vol] 0.40 mg/dL 0.20-1.00 [facility] Comment on above: For patients on eltr ombopag therapy, use of [employer] [place] TBIL is not recommended. Chloride [Moles/Vol] 106 mmol/L 98-107 [facility] Eosinophils/100 WBC (Bld) 3.5 % 0-5 [facility] Glucose [Mass/Vol] 149 mg/dL 74-106 [facility] Comment on above: Fasting Glucose resu lt greater than or equal to 126 mg/dL suggests DIABETES MELLITUS per A.D.A. criteria. Neutrophils (Bld) [#/Vol] 2.5 10*3/uL 2.0-7.7 [facility] Neutrophils/100 WBC (Bld) 54.6 % 47-70 [facility] Potassium [Moles/Vol] 4.5 mmol/L 3.5-5.1 [facility] Protein [Mass/Vol] 7.8 g/dL 6.4-8.2 [facility] Sodium [Moles/Vol] 138 mmol/L 136-145 [facility] WBC (Bld) [#/Vol] 4.6 10*3/uL 4.4-11.0 [facility] Blood erythrocytes count (nu mber/volume)Ordered By: Shayna Malhotra on 04-13-2022 RBC (Bld) [#/Vol] 4.45 10*6/uL 4.2-5.4 [facility] Blood hemoglobin measurement (mass/volume)Ordered By: Shayna Malhotra on 04-13-2022 Hemoglobin (Bld) [Mass/Vol] 12.9 g/dL 12.0-15.0 [facility] Blood lymphocytes/100 leukoc ytesOrdered By: Shayna Malhotra on 04-13-2022 Lymphocytes/100 WBC (Bld) 28.4 % 19-41 [facility] Blood monocytes/100 leukocyt esOrdered By: Shayna Malhotra on 04-13-2022 Monocytes/100 WBC (Bld) 12.9 % 0-10 [facility] Blood platelet mean volumeOr dered By: Shayna Malhotra on 04-13-2022 Platelet mean volume (Bld) [Entitic vol] 11.1 fL 6.2-12.0 [facility] Determination of erythrocyte mean corpuscular volume (MCV)Ordered By: Shayna Malhotra on 04-13-2022 MCV (RBC) [Entitic vol] 90.8 fL 81-99 [facility] Hematocrit Auto (Bld) [Volum e fraction]Ordered By: Shayna Malhotra on 04-13-2022 Hematocrit (Bld) [Volume fraction] 40.4 % 37-47 [facility] Laboratory - Chemistry and C hemistry - challengeOrdered By: Shayna Malhotra on 04-13-2022 ALP [Catalytic activity/Vol] 144 U/L 45-117 [facility] ALT [Catalytic activity/Vol] 32 U/L 13-56 [facility] CO2 [Moles/Vol] 23.0 mmol/L 21.0-32.0 [facility] Globulin (S) [Mass/Vol] 4.8 g/dL 2.2-4.2 [facility] Urea nitrogen/Creatinine [Mass ratio] 15.3 mg/mg 10-20 [facility] - Hematology and Cell countsOrdered By: Shayna Malhotra on 04-13-2022 Erythrocyte distribution width (RBC) [Entitic vol] 47.8 fL 35.1-43.9 [facility] Erythrocyte distribution width (RBC) [Ratio] 14.3 % 11.6-14.6 [facility] Immature granulocytes/100 WBC (Bld) 0.400 % 0.0-0.9 [facility] Comment on above: IG% - Immature Granu locytes (promyelocytes, myelocytes and metamyelocytes) > 1% indicates that a LEFT SHIFT is Present. MCH (RBC) [Entitic mass] 29.0 pg 27.0-32.0 [facility] Nucleated RBC/100 WBC (Bld) [Ratio] 0 % 0-5 [facility] MCHC Auto (RBC) [Mass/Vol]Or dered By: Shayna Malhotra on 04-13-2022 MCHC (RBC) [Mass/Vol] 31.9 g/dL 32-36 [facility] No Panel InformationOrdered By: Shayna Malhotra on 04-13-2022 Estimated GFR (MDRD) Amer 78 mL/min >60 [facility] Comment on above: GFR Calc Estimated GFR (MDRD) Non-Af Amer 65 mL/min >60 [facility] Comment on above: Non- GFR Calc Vitamin D 25-Hydroxy 63.8 ng/mL [facility] Comment on above: Vitamin D 25(OH) Sta tus Range Deficiency <20 ng/mL (50nmol/L) Insufficiency 20 - 30 ng/mL (50 - 75 nmol/L) Sufficiency 30 - 100 ng/mL (75 - 250 nmol/L) Toxicity >100 ng/mL (>250 nmol/L) Platelets bldOrdered By: Evi Malhotra on 04-13-2022 Platelets (Bld) [#/Vol] 157 10*3/uL 150-450 [facility] Serum or plasma albumin kim urement (mass/volume)Ordered By: Shayna Malhotra on 04-13-2022 Albumin [Mass/Vol] 3.0 g/dL 3.2-5.0 [facility] Serum or plasma albumin/glob ulin mass ratioOrdered By: Shayna Malhotra on 04-13-2022 Albumin/Globulin [Mass ratio] 0.6 {ratio} 0.9-2.4 [facility] Serum or plasma calcium kim urement (mass/volume)Ordered By: Shayna Malhotra on 04-13-2022 Calcium [Mass/Vol] 9.0 mg/dL 8.5-10.1 [facility] Serum or plasma creatinine m easurement (mass/volume)Ordered By: Shayna Malhotra on 04-13-2022 Creatinine [Mass/Vol] 0.92 mg/dL 0.55-1.02 [facility] Comment on above: The validity of the calculated GFR & GFRAA in patients over 70 years has not been determined. Clinical correlation is essential. Serum or plasma urea nitroge n measurement (mass/volume)Ordered By: Shayna Malhotra on 04-13-2022 Urea nitrogen [Mass/Vol] 14 mg/dL 7-18 [facility] Thin prep Papanicolaou smear with manual screeningOrdered By: Shayna Malhotra on 04-13-2022 Thin prep Papanicolaou smear with manual screening 40 U/L 15-37 [facility] Thin prep Papanicolaou smear with manual screening 9 5-15 [facility] Basophil percentageon 2021 Bilirubin [Mass/Vol] 0.80 mg/dL 0.20-1.00 [facility] Work Phone: Comment on above: For patients on eltr ombopag therapy, use of [employer] [place] TBIL is not recommended. Chloride [Moles/Vol] 103 mmol/L 98-107 [facility] Work Phone: Glucose [Mass/Vol] 218 mg/dL 74-106 [facility] Work Phone: Comment on above: Glucose result great er than or equal to 200 mg/dLsuggests DIABETES MELLITUS per A.D.A. criteria. Potassium [Moles/Vol] 4.2 mmol/L 3.5-5.1 [facility] Work Phone: Protein [Mass/Vol] 8.0 g/dL 6.4-8.2 [facility] Work Phone: Sodium [Moles/Vol] 135 mmol/L 136-145 [facility] Work Phone: WBC (Bld) [#/Vol] 8.6 10*3/uL 4.4-11.0 [facility] Work Phone: Blood erythrocytes count (nu mber/volume)on 01-01-2022 RBC (Bld) [#/Vol] 4.72 10*6/uL 4.2-5.4 [facility] Work Phone: Blood hemoglobin measurement (mass/volume)on 01-01-2022 Hemoglobin (Bld) [Mass/Vol] 13.5 g/dL 12.0-15.0 [facility] Work Phone: Blood platelet mean volumeon 01-01-2022 Platelet mean volume (Bld) [Entitic vol] 11.0 fL 6.2-12.0 [facility] Work Phone: Determination of erythrocyte mean corpuscular volume (MCV)on 01-01-2022 MCV (RBC) [Entitic vol] 86.2 fL 81-99 [facility] Work Phone: Hematocrit Auto (Bld) [Volum e fraction]on 01-01-2022 Hematocrit (Bld) [Volume fraction] 40.7 % 37-47 [facility] Work Phone: Laboratory - Chemistry and C hemistry - challengeon 01-01-2022 ALP [Catalytic activity/Vol] 140 U/L 45-117 [facility] Work Phone: ALT [Catalytic activity/Vol] 35 U/L 13-56 [facility] Work Phone: CO2 [Moles/Vol] 23.0 mmol/L 21.0-32.0 [facility] Work Phone: Globulin (S) [Mass/Vol] 4.9 g/dL 2.2-4.2 [facility] Work Phone: Urea nitrogen/Creatinine [Mass ratio] 13.8 mg/mg 10-20 [facility] Work Phone: Laboratory - Hematology and Cell countson 01-01-2022 Erythrocyte distribution width (RBC) [Entitic vol] 55.6 fL 35.1-43.9 [facility] Work Phone: Erythrocyte distribution width (RBC) [Ratio] 17.5 % 11.6-14.6 [facility] Work Phone: MCH (RBC) [Entitic mass] 28.6 pg 27.0-32.0 [facility] Work Phone: MCHC Auto (RBC) [Mass/Vol]on 01-01-2022 MCHC (RBC) [Mass/Vol] 33.2 g/dL 32-36 [facility] Work Phone: No Panel Informationon 01-01 Estimated GFR (MDRD) Amer 64 mL/min >60 [facility] Work Phone: Comment on above: GFR Calc Estimated GFR (MDRD) Non-Af Amer 53 mL/min >60 [facility] Work Phone: Comment on above: Non- GFR Calc Platelets bldon 01-01-2022 Platelets (Bld) [#/Vol] 141 10*3/uL 150-450 [facility] Work Phone: Serum or plasma albumin kim urement (mass/volume)on 01-01-2022 Albumin [Mass/Vol] 3.1 g/dL 3.2-5.0 [facility] Work Phone: Serum or plasma albumin/glob ulin mass ratioon 01-01-2022 Albumin/Globulin [Mass ratio] 0.6 {ratio} 0.9-2.4 [facility] Work Phone: Serum or plasma calcium kim urement (mass/volume)on 01-01-2022 Calcium [Mass/Vol] 9.3 mg/dL 8.5-10.1 [facility] Work Phone: Serum or plasma creatinine m easurement (mass/volume)on 01-01-2022 Creatinine [Mass/Vol] 1.09 mg/dL 0.55-1.02 [facility] Work Phone: Comment on above: The validity of the calculated GFR & GFRAA in patients over 70 years has not been determined. Clinical correlation is essential. Serum or plasma urea nitroge n measurement (mass/volume)on 01-01-2022 Urea nitrogen [Mass/Vol] 15 mg/dL 7-18 [facility] Work Phone: Thin prep Papanicolaou smear with manual screeningon 01-01-2022 Thin prep Papanicolaou smear with manual screening 36 U/L 15-37 [facility] Work Phone: Thin prep Papanicolaou smear with manual screening 9 5-15 [facility] Work Phone: Whole blood hemoglobin A1c/t otal hemoglobin ratio (mass fraction)on 01-01-2022 HbA1c (Bld) [Mass fraction] 8.7 % 3.8-5.6 [facility] Work Phone: Comment on above: Normal < 5.7 % Predi abetic 5.7 - 6.4 % Diabetic >or= 6.5 % Please note range changes. Basophil percentageon 2021 Bilirubin [Mass/Vol] 0.40 mg/dL 0.20-1.00 [facility] Work Phone: Comment on above: For patients on eltr ombopag therapy, use of [employer] [place] TBIL is not recommended. Chloride [Moles/Vol] 103 mmol/L 98-107 [facility] Work Phone: Glucose [Mass/Vol] 216 mg/dL 74-106 [facility] Work Phone: Comment on above: Glucose result great er than or equal to 200 mg/dLsuggests DIABETES MELLITUS per A.D.A. criteria. Potassium [Moles/Vol] 4.4 mmol/L 3.5-5.1 [facility] Work Phone: Protein [Mass/Vol] 6.5 g/dL 6.4-8.2 [facility] Work Phone: Sodium [Moles/Vol] 136 mmol/L 136-145 [facility] Work Phone: WBC (Bld) [#/Vol] 6.2 10*3/uL 4.4-11.0 [facility] Work Phone: Blood erythrocytes count (nu mber/volume)on 12-01-2021 RBC (Bld) [#/Vol] 4.09 10*6/uL 4.2-5.4 [facility] Work Phone: Blood hemoglobin measurement (mass/volume)on 12-01-2021 Hemoglobin (Bld) [Mass/Vol] 11.3 g/dL 12.0-15.0 [facility] Work Phone: Blood platelet mean volumeon 12-01-2021 Platelet mean volume (Bld) [Entitic vol] 10.8 fL 6.2-12.0 [facility] Work Phone: Determination of erythrocyte mean corpuscular volume (MCV)on 12-01-2021 MCV (RBC) [Entitic vol] 85.8 fL 81-99 [facility] Work Phone: Comment on above: Delta: 79.2 on 11/27 Hematocrit Auto (Bld) [Volum e fraction]on 12-01-2021 Hematocrit (Bld) [Volume fraction] 35.1 % 37-47 [facility] Work Phone: Laboratory - Chemistry and C hemistry - challengeon 12-01-2021 ALP [Catalytic activity/Vol] 130 U/L 45-117 [facility] Work Phone: ALT [Catalytic activity/Vol] 48 U/L 13-56 [facility] Work Phone: CK [Catalytic activity/Vol] 27 U/L 26-192 [facility] Work Phone: CO2 [Moles/Vol] 27.0 mmol/L 21.0-32.0 [facility] Work Phone: Globulin (S) [Mass/Vol] 4.2 g/dL 2.2-4.2 [facility] Work Phone: Urea nitrogen/Creatinine [Mass ratio] 31.2 mg/mg 10-20 [facility] Work Phone: Laboratory - Hematology and Cell countson 12-01-2021 Erythrocyte distribution width (RBC) [Entitic vol] 48.3 fL 35.1-43.9 [facility] Work Phone: Erythrocyte distribution width (RBC) [Ratio] 15.4 % 11.6-14.6 [facility] Work Phone: MCH (RBC) [Entitic mass] 27.6 pg 27.0-32.0 [facility] Work Phone: MCHC Auto (RBC) [Mass/Vol]on 12-01-2021 MCHC (RBC) [Mass/Vol] 32.2 g/dL 32-36 [facility] Work Phone: Comment on above: Delta: 34.7 on 11/27 No Panel Informationon 12-01 Estimated GFR (MDRD) Amer 91 mL/min >60 [facility] Work Phone: Comment on above: GFR Calc Estimated GFR (MDRD) Non-Af Amer 76 mL/min >60 [facility] Work Phone: Comment on above: Non- GFR Calc Platelets bldon 12-01-2021 Platelets (Bld) [#/Vol] 231 10*3/uL 150-450 [facility] Work Phone: Serum or plasma albumin kim urement (mass/volume)on 12-01-2021 Albumin [Mass/Vol] 2.3 g/dL 3.2-5.0 [facility] Work Phone: Serum or plasma albumin/glob ulin mass ratioon 12-01-2021 Albumin/Globulin [Mass ratio] 0.5 {ratio} 0.9-2.4 [facility] Work Phone: Serum or plasma calcium kim urement (mass/volume)on 12-01-2021 Calcium [Mass/Vol] 8.8 mg/dL 8.5-10.1 [facility] Work Phone: Serum or plasma creatinine m easurement (mass/volume)on 12-01-2021 Creatinine [Mass/Vol] 0.80 mg/dL 0.55-1.02 [facility] Work Phone: Comment on above: The validity of the calculated GFR & GFRAA in patients over 70 years has not been determined. Clinical correlation is essential. Serum or plasma urea nitroge n measurement (mass/volume)on 12-01-2021 Urea nitrogen [Mass/Vol] 25 mg/dL 7-18 [facility] Work Phone: Thin prep Papanicolaou smear with manual screeningon 12-01-2021 Thin prep Papanicolaou smear with manual screening 69 U/L 15-37 [facility] Work Phone: Thin prep Papanicolaou smear with manual screening 6 5-15 [facility] Work Phone: Whole blood hemoglobin A1c/t otal hemoglobin ratio (mass fraction)on 12-01-2021 HbA1c (Bld) [Mass fraction] 10.6 % 3.8-5.6 [facility] Work Phone: Comment on above: Normal < 5.7 % Predi abetic 5.7 - 6.4 % Diabetic >or= 6.5 % Please note range changes. Basophil percentageon 2021 Bilirubin [Mass/Vol] 0.40 mg/dL 0.20-1.00 [facility] Work Phone: Comment on above: For patients on eltr ombopag therapy, use of [employer] [place] TBIL is not recommended. Chloride [Moles/Vol] 102 mmol/L 98-107 [facility] Work Phone: Glucose [Mass/Vol] 256 mg/dL 74-106 [facility] Work Phone: Comment on above: Glucose result great er than or equal to 200 mg/dLsuggests DIABETES MELLITUS per A.D.A. criteria. Potassium [Moles/Vol] 4.4 mmol/L 3.5-5.1 [facility] Work Phone: Protein [Mass/Vol] 7.0 g/dL 6.4-8.2 [facility] Work Phone: Sodium [Moles/Vol] 133 mmol/L 136-145 [facility] Work Phone: WBC (Bld) [#/Vol] 5.6 10*3/uL 4.4-11.0 [facility] Work Phone: Blood erythrocytes count (nu mber/volume)on 11-27-2021 RBC (Bld) [#/Vol] 4.47 10*6/uL 4.2-5.4 [facility] Work Phone: Blood hemoglobin measurement (mass/volume)on 11-27-2021 Hemoglobin (Bld) [Mass/Vol] 12.3 g/dL 12.0-15.0 [facility] Work Phone: Blood platelet mean volumeon 11-27-2021 Platelet mean volume (Bld) [Entitic vol] 11.9 fL 6.2-12.0 [facility] Work Phone: Determination of erythrocyte mean corpuscular volume (MCV)on 11-27-2021 MCV (RBC) [Entitic vol] 79.2 fL 81-99 [facility] Work Phone: Comment on above: Delta: 83.4 on 11/24 Hematocrit Auto (Bld) [Volum e fraction]on 11-27-2021 Hematocrit (Bld) [Volume fraction] 35.4 % 37-47 [facility] Work Phone: Laboratory - Chemistry and C hemistry - challengeon 11-27-2021 ALP [Catalytic activity/Vol] 127 U/L 45-117 [facility] Work Phone: ALT [Catalytic activity/Vol] 28 U/L 13-56 [facility] Work Phone: CO2 [Moles/Vol] 25.0 mmol/L 21.0-32.0 [facility] Work Phone: Globulin (S) [Mass/Vol] 4.6 g/dL 2.2-4.2 [facility] Work Phone: Urea nitrogen/Creatinine [Mass ratio] 15.9 mg/mg 10-20 [facility] Work Phone: Laboratory - Hematology and Cell countson 11-27-2021 Erythrocyte distribution width (RBC) [Entitic vol] 41.4 fL 35.1-43.9 [facility] Work Phone: Erythrocyte distribution width (RBC) [Ratio] 14.5 % 11.6-14.6 [facility] Work Phone: MCH (RBC) [Entitic mass] 27.5 pg 27.0-32.0 [facility] Work Phone: MCHC Auto (RBC) [Mass/Vol]on 11-27-2021 MCHC (RBC) [Mass/Vol] 34.7 g/dL 32-36 [facility]: No Panel Informationon 11-27 Estimated GFR (MDRD) Amer 108 mL/min >60 [facility] Work Phone: Comment on above: GFR Calc Estimated GFR (MDRD) Non-Af Amer 89 mL/min >60 [facility] Work Phone: Comment on above: Non- GFR Calc Platelets bldon 11-27-2021 Platelets (Bld) [#/Vol] 154 10*3/uL 150-450 [facility] Work Phone: Serum or plasma albumin kim urement (mass/volume)on 11-27-2021 Albumin [Mass/Vol] 2.4 g/dL 3.2-5.0 [facility] Work Phone: Serum or plasma albumin/glob ulin mass ratioon 11-27-2021 Albumin/Globulin [Mass ratio] 0.5 {ratio} 0.9-2.4 [facility] Work Phone: Serum or plasma calcium kim urement (mass/volume)on 11-27-2021 Calcium [Mass/Vol] 8.9 mg/dL 8.5-10.1 [facility] Work Phone: Serum or plasma creatinine m easurement (mass/volume)on 11-27-2021 Creatinine [Mass/Vol] 0.69 mg/dL 0.55-1.02 [facility] Work Phone: Comment on above: The validity of the calculated GFR & GFRAA in patients over 70 years has not been determined. Clinical correlation is essential. Serum or plasma urea nitroge n measurement (mass/volume)on 11-27-2021 Urea nitrogen [Mass/Vol] 11 mg/dL 7-18 [facility] Work Phone: Thin prep Papanicolaou smear with manual screeningon 11-27-2021 Thin prep Papanicolaou smear with manual screening 31 U/L 15-37 [facility] Work Phone: Thin prep Papanicolaou smear with manual screening 6 5-15 [facility] Work Phone: Absolute lymphocyte counton 11-24-2021 Lymphocytes Auto (Unsp spec) [#/Vol] 1.01 10*3/uL 0.83-4.51 [facility] Work Phone: Basophil percentageon 2021 Basophil percentage 3.5 mg/dL 2.5-4.9 [facility] Work Phone: Basophils/100 WBC (Bld) 0.4 % 0-1 [facility] Work Phone: Bilirubin [Mass/Vol] 0.40 mg/dL 0.20-1.00 [facility] Work Phone: Comment on above: For patients on eltr ombopag therapy, use of [employer] [place] TBIL is not recommended. Chloride [Moles/Vol] 105 mmol/L 98-107 [facility] Work Phone: Eosinophils/100 WBC (Bld) 2.3 % 0-5 [facility] Work Phone: Glucose [Mass/Vol] 321 mg/dL 74-106 [facility] Work Phone: Comment on above: Glucose result great er than or equal to 200 mg/dLsuggests DIABETES MELLITUS per A.D.A. criteria. Neutrophils (Bld) [#/Vol] 3.8 10*3/uL 2.0-7.7 [facility] Work Phone: Neutrophils/100 WBC (Bld) 66.8 % 47-70 [facility] Work Phone: Potassium [Moles/Vol] 4.2 mmol/L 3.5-5.1 [facility] Work Phone: Protein [Mass/Vol] 6.6 g/dL 6.4-8.2 [facility] Work Phone: Sodium [Moles/Vol] 133 mmol/L 136-145 [facility] Work Phone: WBC (Bld) [#/Vol] 5.6 10*3/uL 4.4-11.0 [facility] Work Phone: Blood erythrocytes count (nu mber/volume)on 11-24-2021 RBC (Bld) [#/Vol] 3.91 10*6/uL 4.2-5.4 [facility] Work Phone: Blood hemoglobin measurement (mass/volume)on 11-24-2021 Hemoglobin (Bld) [Mass/Vol] 11.0 g/dL 12.0-15.0 [facility] Work Phone: Blood lymphocytes/100 leukoc yteson 11-24-2021 Lymphocytes/100 WBC (Bld) 17.9 % 19-41 [facility] Work Phone: Blood monocytes/100 leukocyt eson 11-24-2021 Monocytes/100 WBC (Bld) 12.1 % 0-10 [facility] Work Phone: Blood platelet mean volumeon 11-24-2021 Platelet mean volume (Bld) [Entitic vol] 11.4 fL 6.2-12.0 [facility] Work Phone: Determination of erythrocyte mean corpuscular volume (MCV)on 11-24-2021 MCV (RBC) [Entitic vol] 83.4 fL 81-99 [facility] Work Phone: Glucose Glucometer (BldC) [M ass/Vol]on 11-24-2021 Glucose [Mass/Vol] 307 mg/dL 74-106 [facility] Work Phone: Comment on above: MANAGEMENT OF PATIEN T CARE PER NURSING PROTOCOL Glucose [Mass/Vol] 339 mg/dL 74-106 [facility] Work Phone: Comment on above: MANAGEMENT OF PATIEN T CARE PER NURSING PROTOCOL Hematocrit Auto (Bld) [Volum e fraction]on 11-24-2021 Hematocrit (Bld) [Volume fraction] 32.6 % 37-47 [facility] Work Phone: Laboratory - Chemistry and C hemistry - challengeon 11-24-2021 ALP [Catalytic activity/Vol] 116 U/L 45-117 [facility] Work Phone: ALT [Catalytic activity/Vol] 33 U/L 13-56 [facility] Work Phone: CK [Catalytic activity/Vol] 500 U/L 26-192 [facility] Work Phone: CO2 [Moles/Vol] 22.0 mmol/L 21.0-32.0 [facility] Work Phone: Globulin (S) [Mass/Vol] 4.4 g/dL 2.2-4.2 [facility] Work Phone: Magnesium [Mass/Vol] 2.3 mg/dL 1.6-2.6 [facility] Work Phone: Urea nitrogen/Creatinine [Mass ratio] 24.3 mg/mg 10-20 [facility] Work Phone: Laboratory - Hematology and Cell countson 11-24-2021 Erythrocyte distribution width (RBC) [Entitic vol] 45.1 fL 35.1-43.9 [facility] Work Phone: Erythrocyte distribution width (RBC) [Ratio] 14.9 % 11.6-14.6 [facility] Work Phone: Immature granulocytes/100 WBC (Bld) 0.500 % 0.0-0.9 [facility] Work Phone: Comment on above: IG% - Immature Granu locytes (promyelocytes, myelocytes and metamyelocytes) > 1% indicates that a LEFT SHIFT is Present. MCH (RBC) [Entitic mass] 28.1 pg 27.0-32.0 [facility] Work Phone: Nucleated RBC/100 WBC (Bld) [Ratio] 0 % 0-5 [facility] Work Phone: MCHC Auto (RBC) [Mass/Vol]on 11-24-2021 MCHC (RBC) [Mass/Vol] 33.7 g/dL 32-36 [facility] Work Phone: No Panel Informationon 11-24 Estimated Creatinine Clearance Calc 51.54 ml/min [facility] Work Phone: Estimated GFR (MDRD) Amer 76 mL/min >60 [facility] Work Phone: Comment on above: GFR Calc Estimated GFR (MDRD) Non-Af Amer 62 mL/min >60 [facility] Work Phone: Comment on above: Non- GFR Calc Platelets bldon 11-24-2021 Platelets (Bld) [#/Vol] 107 10*3/uL 150-450 [facility] Work Phone: Serum or plasma albumin kim urement (mass/volume)on 11-24-2021 Albumin [Mass/Vol] 2.2 g/dL 3.2-5.0 [facility] Work Phone: Serum or plasma albumin/glob ulin mass ratioon 11-24-2021 Albumin/Globulin [Mass ratio] 0.5 {ratio} 0.9-2.4 [facility] Work Phone: Serum or plasma calcium kim urement (mass/volume)on 11-24-2021 Calcium [Mass/Vol] 8.5 mg/dL 8.5-10.1 [facility] Work Phone: Serum or plasma creatinine m easurement (mass/volume)on 11-24-2021 Creatinine [Mass/Vol] 0.94 mg/dL 0.55-1.02 [facility] Work Phone: Comment on above: The validity of the calculated GFR & GFRAA in patients over 70 years has not been determined. Clinical correlation is essential. Serum or plasma urea nitroge n measurement (mass/volume)on 11-24-2021 Urea nitrogen [Mass/Vol] 23 mg/dL 7-18 [facility] Work Phone: Thin prep Papanicolaou smear with manual screeningon 11-24-2021 Thin prep Papanicolaou smear with manual screening 49 U/L 15-37 [facility] Work Phone: Thin prep Papanicolaou smear with manual screening 6 5-15 [facility] Work Phone: Absolute lymphocyte counton 11-22-2021 Lymphocytes Auto (Unsp spec) [#/Vol] 0.27 10*3/uL 0.83-4.51 [facility] Work Phone: Basophil percentageon 2021 Lactate [Moles/Vol] 2.7 mmol/L 0.4-2.0 [facility] Work Phone: Comment on above: Critical Result(s) C alled at: 19:01:05 11/22/2021 by: Sintia Hernandez to Pamela Ely Results read back by same. Basophil percentage >100 SEEN /hpf 0-5 [facility] Work Phone: Lactate [Moles/Vol] 4.1 mmol/L 0.4-2.0 [facility] Work Phone: Comment on above: Critical Result(s) C alled at: 14:35:39 11/22/2021 by: Derik Florez. Milad Cordova RN (ER). Results read back by same. Basophils/100 WBC (Bld) 0.3 % 0-1 [facility] Work Phone: Bilirubin [Mass/Vol] 1.00 mg/dL 0.20-1.00 [facility] Work Phone: Comment on above: For patients on eltr ombopag therapy, use of [employer] [place] TBIL is not recommended. Chloride [Moles/Vol] 97 mmol/L 98-107 [facility] Work Phone: Eosinophils/100 WBC (Bld) 0.0 % 0-5 [facility] Work Phone: Glucose [Mass/Vol] 358 mg/dL 74-106 [facility] Work Phone: Comment on above: Glucose result great er than or equal to 200 mg/dLsuggests DIABETES MELLITUS per A.D.A. criteria. Neutrophils (Bld) [#/Vol] 2.6 10*3/uL 2.0-7.7 [facility] Work Phone: Neutrophils/100 WBC (Bld) 89.3 % 47-70 [facility] Work Phone: Potassium [Moles/Vol] 4.9 mmol/L 3.5-5.1 [facility] Work Phone: Comment on above: Moderate Hemolysis, Result may be falsely increased. Protein [Mass/Vol] 7.8 g/dL 6.4-8.2 [facility] Work Phone: Sodium [Moles/Vol] 130 mmol/L 136-145 [facility] Work Phone: WBC (Bld) [#/Vol] 2.9 10*3/uL 4.4-11.0 [facility] Work Phone: Bilirubin Test strip Ql (U)o n 11-22-2021 Bilirubin Ql (U) Negative Negative [facility] Work Phone: Blood erythrocytes count (nu mber/volume)on 11-22-2021 RBC (Bld) [#/Vol] 4.66 10*6/uL 4.2-5.4 [facility] Work Phone: Blood hemoglobin measurement (mass/volume)on 11-22-2021 Hemoglobin (Bld) [Mass/Vol] 12.9 g/dL 12.0-15.0 [facility] Work Phone: Blood lymphocytes/100 leukoc yteson 11-22-2021 Lymphocytes/100 WBC (Bld) 9.4 % 19-41 [facility] Work Phone: Blood manual differential co mment interpretation (narrative result)on 11-22-2021 Manual differential comment Neftali (Bld) [Interp] SCANNED [facility] Work Phone: Comment on above: FEW BANDS NOTED Blood monocytes/100 leukocyt eson 11-22-2021 Monocytes/100 WBC (Bld) 0.7 % 0-10 [facility] Work Phone: Blood platelet mean volumeon 11-22-2021 Platelet mean volume (Bld) [Entitic vol] 11.0 fL 6.2-12.0 [facility] Work Phone: Determination of erythrocyte mean corpuscular volume (MCV)on 11-22-2021 MCV (RBC) [Entitic vol] 83.7 fL 81-99 [facility] Work Phone: Hematocrit Auto (Bld) [Volum e fraction]on 11-22-2021 Hematocrit (Bld) [Volume fraction] 39.0 % 37-47 [facility] Work Phone: INR in Blood by Coagulation assayon 11-22-2021 INR Coag (Bld) [Relative time] 1.6 {INR} [facility] [facility] Work Phone: Ketones Test strip Ql (U)on 11-22-2021 Ketones Ql (U) 15 mg/dl Negative [facility] Work Phone: Laboratory - Chemistry and C hemistry - challengeon 11-22-2021 ALP [Catalytic activity/Vol] 170 U/L 45-117 [facility] Work Phone: ALT [Catalytic activity/Vol] 33 U/L 13-56 [facility] Work Phone: CO2 [Moles/Vol] 22.0 mmol/L 21.0-32.0 [facility] Work Phone: Globulin (S) [Mass/Vol] 5.0 g/dL 2.2-4.2 [facility] Work Phone: Urea nitrogen/Creatinine [Mass ratio] 19.1 mg/mg 10-20 [facility] Work Phone: Laboratory - Coagulationon 0 11-22-2021 aPTT Coag (Bld) [Time] 33.5 s 24.1-36.2 [facility] Work Phone: PT Coag (PPP) [Time] 18.6 s 11.7-14.9 [facility] Work Phone: Laboratory - Hematology and Cell countson 11-22-2021 Erythrocyte distribution width (RBC) [Entitic vol] 44.4 fL 35.1-43.9 [facility] Work Phone: Erythrocyte distribution width (RBC) [Ratio] 14.6 % 11.6-14.6 [facility] Work Phone: Immature granulocytes/100 WBC (Bld) 0.300 % 0.0-0.9 [facility] Work Phone: Comment on above: IG% - Immature Granu locytes (promyelocytes, myelocytes and metamyelocytes) > 1% indicates that a LEFT SHIFT is Present. MCH (RBC) [Entitic mass] 27.7 pg 27.0-32.0 [facility] Work Phone: Nucleated RBC/100 WBC (Bld) [Ratio] 0 % 0-5 [facility] Work Phone: Laboratory - Microbiology an d Antimicrobial susceptibilityon 11-22-2021 SARS-CoV-2 (COVID-19) RNA SALLY+probe Ql (Unsp spec) Not detected Not Detect [facility] Work Phone: Comment on above: Normal [...] 11-22-2021 MCHC (RBC) [Mass/Vol] 33.1 g/dL 32-36 [facility]: Mucus LM Ql (Urine sed)on Mucus Ql (Urine sed) 0 SEEN /hpf [facility] Work Phone: Nitrite Test strip Ql (U)on 11-22-2021 Nitrite Ql (U) Negative Negative [facility] Work Phone: No Panel Informationon 11-22 Troponin I High Sensitivity 217 pg/mL 3.0-54.0 [facility] Work Phone: Comment on above: Critical Result(s) C alled at: 20:27:57 11/22/2021 by: Sintia Hernandez to Anthony Butcher. Results read back by same. Please Note: New Test Units and Gender Specific Reference Ranges. For more information see Policy Stat Procedure [place] High Sensitivity Troponin (TNIH) and attachments. Troponin I High Sensitivity 274 pg/mL 3.0-54.0 [facility] Work Phone: Comment on above: Critical Result(s) C alled at: 17:12:08 11/22/2021 by: Sintia Hernandez by Lila Cordova. Results read back by same. Please Note: New Test Units and Gender Specific Reference Ranges. For more information see Policy Stat Procedure [place] High Sensitivity Troponin (TNIH) and attachments. Estimated Creatinine Clearance Calc 34.36 ml/min [facility] Work Phone: Estimated GFR (MDRD) Amer 48 mL/min >60 [facility] Work Phone: Comment on above: GFR Calc Estimated GFR (MDRD) Non-Af Amer 39 mL/min >60 [facility] Work Phone: Comment on above: Non- GFR Calc Platelets bldon 11-22-2021 Platelets (Bld) [#/Vol] 121 10*3/uL 150-450 [facility] Work Phone: Protein Test strip Ql (U)on 11-22-2021 Protein Ql (U) 100 mg/dl Negative [facility] Work Phone: Review by pathologiston 11-04 Pathologist review Neftali (Unsp spec) [Interp] May foll [facility] Work Phone: Pathologist review Neftali (Unsp spec) [Interp] Reviewed [facility] Work Phone: Comment on above: Previous reported re sult: Analisa jacobson Edited by: BELLA on 11/23/21:2454LeukopeniaMild Thrombocytopenia.Clinical correlation necessary.Cedric Cardoza M.D. 11/23/21 AMENDED REPORT 11/23/21 2664 PATH REV previously reported as: Analisa jacobson Serum or plasma albumin kim urement (mass/volume)on 11-22-2021 Albumin [Mass/Vol] 2.8 g/dL 3.2-5.0 [facility] Work Phone: Serum or plasma albumin/glob ulin mass ratioon 11-22-2021 Albumin/Globulin [Mass ratio] 0.6 {ratio} 0.9-2.4 [facility] Work Phone: Serum or plasma calcium kim urement (mass/volume)on 11-22-2021 Calcium [Mass/Vol] 8.9 mg/dL 8.5-10.1 [facility] Work Phone: Serum or plasma creatinine m easurement (mass/volume)on 11-22-2021 Creatinine [Mass/Vol] 1.41 mg/dL 0.55-1.02 [facility] Work Phone: Comment on above: The validity of the calculated GFR & GFRAA in patients over 70 years has not been determined. Clinical correlation is essential. Serum or plasma urea nitroge n measurement (mass/volume)on 11-22-2021 Urea nitrogen [Mass/Vol] 27 mg/dL 7-18 [facility] Work Phone: Squamous epithelial cells de tection in urine sediment by light microscopyon 11-22-2021 Epithelial cells.squamous LM Ql (Urine sed) 0 SEEN /hpf 5-10 [facility] Work Phone: Thin prep Papanicolaou smear with manual screeningon 11-22-2021 Thin prep Papanicolaou smear with manual screening 65 U/L 15-37 [facility] Work Phone: Comment on above: Moderate Hemolysis, Result may be falsely increased. Thin prep Papanicolaou smear with manual screening 11 5-15 [facility] Work Phone: Urine blood detectionon 11-04 RBC Ql (U) 250 /ul Negative [facility] Work Phone: RBC Ql (U) 0 SEEN /hpf 0-5 [facility] Work Phone: Urine clarityon 11-22-2021 Clarity (U) Cloudy Clear [facility] Work Phone: Urine color determinationon 11-22-2021 Color (U) Yellow Yellow [facility] Work Phone: Urine glucose detectionon Glucose Ql (U) 250 mg/dl Normal [facility] Work Phone: Urine leukocyte esterase det ection by dipstickon 11-22-2021 Leukocyte esterase Test strip Ql (U) 500 /ul Negative [facility] Work Phone: Urine pHon 11-22-2021 pH (U) 6.0 [pH] 5.0 - 8.0 [facility] Work Phone: Urine sediment bacteria coun t by microscopy (number/high power field)on 11-22-2021 Bacteria LM.HPF (Urine sed) [#/Area] 3 /[HPF] None Seen [facility] Work Phone: Urine specific gravity measu rementon 11-22-2021 Specific gravity (U) [Rel density] 1.020 1.002-1.03 0 [facility] Work Phone: Urobilinogen Auto test strip Ql (U)on 11-22-2021 Urobilinogen Ql (U) Normal mg/dl Normal [facility] Work Phone: Whole blood hemoglobin A1c/t otal hemoglobin ratio (mass fraction)on 11-22-2021 HbA1c (Bld) [Mass fraction] 10.2 % 3.8-5.6 [facility] Work Phone: Comment on above: Normal < 5.7 % Predi abetic 5.7 - 6.4 % Diabetic >or= 6.5 % Please note range changes. Whole blood hemoglobin A1c/t otal hemoglobin ratio (mass fraction)on 10-27-2021 HbA1c (Bld) [Mass fraction] 8.3 % 3.8-5.6 [facility] Work Phone: Comment on above: Normal < 5.7 % Predi abetic 5.7 - 6.4 % Diabetic >or= 6.5 % Please note range changes. Absolute lymphocyte counton 10-13-2021 Lymphocytes Auto (Unsp spec) [#/Vol] 1.22 10*3/uL 0.83-4.51 [facility] Work Phone: Basophil percentageon 2021 Basophils/100 WBC (Bld) 0.3 % 0-1 [facility] Work Phone: Bilirubin [Mass/Vol] 0.50 mg/dL 0.20-1.00 [facility] Work Phone: Comment on above: For patients on eltr ombopag therapy, use of Dimension [place] TBIL is not recommended. Chloride [Moles/Vol] 102 mmol/L 98-107 [facility] Work Phone: Eosinophils/100 WBC (Bld) 1.7 % 0-5 [facility] Work Phone: Glucose [Mass/Vol] 259 mg/dL 74-106 [facility] Work Phone: Comment on above: Glucose result great er than or equal to 200 mg/dLsuggests DIABETES MELLITUS per A.D.A. criteria. Neutrophils (Bld) [#/Vol] 5.1 10*3/uL 2.0-7.7 [facility] Work Phone: Neutrophils/100 WBC (Bld) 70.8 % 47-70 [facility] Work Phone: Potassium [Moles/Vol] 4.4 mmol/L 3.5-5.1 [facility] Work Phone: Protein [Mass/Vol] 7.4 g/dL 6.4-8.2 [facility] Work Phone: Sodium [Moles/Vol] 134 mmol/L 136-145 [facility] Work Phone: WBC (Bld) [#/Vol] 7.1 10*3/uL 4.4-11.0 [facility] Work Phone: Blood erythrocytes count (nu mber/volume)on 10-13-2021 RBC (Bld) [#/Vol] 4.21 10*6/uL 4.2-5.4 [facility] Work Phone: Blood hemoglobin measurement (mass/volume)on 10-13-2021 Hemoglobin (Bld) [Mass/Vol] 12.1 g/dL 12.0-15.0 [facility] Work Phone: Blood lymphocytes/100 leukoc yteson 10-13-2021 Lymphocytes/100 WBC (Bld) 17.1 % 19-41 [facility] Work Phone: Blood monocytes/100 leukocyt eson 10-13-2021 Monocytes/100 WBC (Bld) 9.8 % 0-10 [facility] Work Phone: Blood platelet mean volumeon 10-13-2021 Platelet mean volume (Bld) [Entitic vol] 10.7 fL 6.2-12.0 [facility] Work Phone: Determination of erythrocyte mean corpuscular volume (MCV)on 10-13-2021 MCV (RBC) [Entitic vol] 86.2 fL 81-99 [facility] Work Phone: Hematocrit Auto (Bld) [Volum e fraction]on 10-13-2021 Hematocrit (Bld) [Volume fraction] 36.3 % 37-47 [facility] Work Phone: Laboratory - Chemistry and C hemistry - challengeon 10-13-2021 ALP [Catalytic activity/Vol] 169 U/L 45-117 [facility] Work Phone: ALT [Catalytic activity/Vol] 31 U/L 13-56 [facility] Work Phone: CO2 [Moles/Vol] 25.0 mmol/L 21.0-32.0 [facility] Work Phone: Globulin (S) [Mass/Vol] 4.5 g/dL 2.2-4.2 [facility] Work Phone: Urea nitrogen/Creatinine [Mass ratio] 14.3 mg/mg 10-20 [facility] Work Phone: Laboratory - Hematology and Cell countson 10-13-2021 Erythrocyte distribution width (RBC) [Entitic vol] 45.6 fL 35.1-43.9 [facility] Work Phone: Erythrocyte distribution width (RBC) [Ratio] 14.4 % 11.6-14.6 [facility] Work Phone: Immature granulocytes/100 WBC (Bld) 0.300 % 0.0-0.9 [facility] Work Phone: Comment on above: IG% - Immature Granu locytes (promyelocytes, myelocytes and metamyelocytes) > 1% indicates that a LEFT SHIFT is Present. MCH (RBC) [Entitic mass] 28.7 pg 27.0-32.0 [facility] Work Phone: Nucleated RBC/100 WBC (Bld) [Ratio] 0 % 0-5 [facility] Work Phone: MCHC Auto (RBC) [Mass/Vol]on 10-13-2021 MCHC (RBC) [Mass/Vol] 33.3 g/dL 32-36 [facility] Work Phone: No Panel Informationon 10-13 Estimated GFR (MDRD) Amer 79 mL/min >60 [facility] Work Phone: Comment on above: GFR Calc Estimated GFR (MDRD) Non-Af Amer 66 mL/min >60 [facility] Work Phone: Comment on above: Non- GFR Calc Vitamin D 25-Hydroxy 67.4 ng/mL [facility] Work Phone: Comment on above: Vitamin D 25(OH) Sta tus Range Deficiency <20 ng/mL (50nmol/L) Insufficiency 20 - 30 ng/mL (50 - 75 nmol/L) Sufficiency 30 - 100 ng/mL (75 - 250 nmol/L) Toxicity >100 ng/mL (>250 nmol/L) Platelets bldon 10-13-2021 Platelets (Bld) [#/Vol] 158 10*3/uL 150-450 [facility] Work Phone: Serum or plasma albumin kim urement (mass/volume)on 10-13-2021 Albumin [Mass/Vol] 2.9 g/dL 3.2-5.0 [facility] Work Phone: Serum or plasma albumin/glob ulin mass ratioon 10-13-2021 Albumin/Globulin [Mass ratio] 0.6 {ratio} 0.9-2.4 [facility] Work Phone: Serum or plasma calcium kim urement (mass/volume)on 10-13-2021 Calcium [Mass/Vol] 8.8 mg/dL 8.5-10.1 [facility] Work Phone: Serum or plasma creatinine m easurement (mass/volume)on 10-13-2021 Creatinine [Mass/Vol] 0.91 mg/dL 0.55-1.02 [facility] Work Phone: Comment on above: The validity of the calculated GFR & GFRAA in patients over 70 years has not been determined. Clinical correlation is essential. Serum or plasma urea nitroge n measurement (mass/volume)on 10-13-2021 Urea nitrogen [Mass/Vol] 13 mg/dL 7-18 [facility] Work Phone: Thin prep Papanicolaou smear with manual screeningon 10-13-2021 Thin prep Papanicolaou smear with manual screening 28 U/L 15-37 [facility] Work Phone: Thin prep Papanicolaou smear with manual screening 7 5-15 [facility] Work Phone: CNOVSPon 10-02-2021 CNOVSP Visit (SP) Office (ROGELIO) ----- VIDA NINA ([id number]) 1950 F Date Time Provider Department 10/02/21 1:00 PM JENNIFER CUEVAS During your visit today, we recorded the following information about you: Temperature Pulse Respiration Blood pressure 97.4 degrees 103/minute 20/minute 152/85 Weight Height 136.5 kg 1.651 m Moriah Aldridge RN 10/02/2021 12:52 PM Signed Patient arrived [place] [id number] in [facility] for post op visit. Patient admits to pain in abd and lower back resolved since surgery. Pt denies any new concerns, today. Pt here with Marguerite, friend. Enc and support provided. JESUS Lynch MD 12/01/2021 8:04 AM Signed Gynecologic Oncology [facility] Follow up visit Date of service: 10/02/2021 PROBLEM/CC: Vida Nina presents for a post-op visit. SURGICAL PATHOLOGY [[id number]] Collected: 09/07/21 1104 Order Status: Completed Specimen: Tissue from UTERUS, CERVIX, BILATERAL FALLOPIAN TUBES AND BILATERAL OVARIES Updated: 09/11/21 1319 Case Report -- Surgical Pathology Report ? Case: [id number] ? Authorizing Provider: ?Jennifer Cuevas MD ? [...] A11 and A16 were reviewed at the [facility] gynecologic pathology consensus conference via telepathology on 09/09/[address] Lupe Younger and Andra Franco agree with the diagnosis of acute salpingitis. ? Laboratory Developed Test (LDT) Disclaimer: Performance characteristics of immunohistochemical, immunofluorescent and chromogenic in-situ hybridization tests have been determined by the performing laboratory within [facility] [place] ([facility], [facility], [facility] or [facility]) in a manner consistent with CLIA [...] ?Not iden (more content not included)... Normal [facility] Glucose Glucometer (BldC) [M ass/Vol]on 09-22-2021 Glucose [Mass/Vol] 145 mg/dL 74-106 [facility] Work Phone: Comment on above: MANAGEMENT OF PATIEN T CARE PER NURSING PROTOCOL Darren 09-21-2021 CNPN Telephone (ÁNGEL Sprague) ----- VIDA NINA ([id number]) 1950 F Date Time Provider Department 09/21/21 JENNIFER CUEVAS During your visit today, we recorded the following information about you: Jeffrey Ferris 09/21/2021 12:15 PM Signed Spoke to Nurse Bernadine from [facility] stated that the patient is in [...] ERYTHEMATOSUS [M32.9] 07/15/2005 MYALGIA AND MYOSITIS NOS [[id number]] 07/15/2005 Elevated transaminase level [R74.01] 09/04/2014 Elevated blood sugar [R73.9] 09/04/2014 Mood disorder (HCC) [F39] 09/04/2014 Hard to intubate [T88.4XXA] 09/07/2021 Encounter for postoperative care [Z48.89] 09/07/2021 Endometrial cancer (HCC) [C54.1] 09/08/2021 Encounter Status:Closed by JEFFREY FERRIS on 09/21/21 Normal [facility] Absolute lymphocyte counton 09-20-2021 Lymphocytes Auto (Unsp spec) [#/Vol] 0.99 10*3/uL 0.83-4.51 [facility] Work Phone: Basophil percentageon 2021 Basophils/100 WBC (Bld) 0.6 % 0-1 [facility] Work Phone: Chloride [Moles/Vol] 109 mmol/L 98-107 [facility] Work Phone: Eosinophils/100 WBC (Bld) 2.6 % 0-5 [facility] Work Phone: Glucose [Mass/Vol] 211 mg/dL 74-106 [facility] Work Phone: Comment on above: Glucose result great er than or equal to 200 mg/dLsuggests DIABETES MELLITUS per A.D.A. criteria. Neutrophils (Bld) [#/Vol] 3.4 10*3/uL 2.0-7.7 [facility] Work Phone: Neutrophils/100 WBC (Bld) 67.6 % 47-70 [facility] Work Phone: Potassium [Moles/Vol] 4.4 mmol/L 3.5-5.1 [facility] Work Phone: Sodium [Moles/Vol] 138 mmol/L 136-145 [facility] Work Phone: WBC (Bld) [#/Vol] 5.0 10*3/uL 4.4-11.0 [facility] Work Phone: Blood erythrocytes count (nu mber/volume)on 09-20-2021 RBC (Bld) [#/Vol] 4.50 10*6/uL 4.2-5.4 [facility] Work Phone: Blood hemoglobin measurement (mass/volume)on 09-20-2021 Hemoglobin (Bld) [Mass/Vol] 12.8 g/dL 12.0-15.0 [facility] Work Phone: Blood lymphocytes/100 leukoc yteson 09-20-2021 Lymphocytes/100 WBC (Bld) 19.7 % 19-41 [facility] Work Phone: Blood monocytes/100 leukocyt eson 09-20-2021 Monocytes/100 WBC (Bld) 9.1 % 0-10 [facility] Work Phone: Blood platelet mean volumeon 09-20-2021 Platelet mean volume (Bld) [Entitic vol] 9.8 fL 6.2-12.0 [facility] Work Phone: Determination of erythrocyte mean corpuscular volume (MCV)on 09-20-2021 MCV (RBC) [Entitic vol] 87.6 fL 81-99 [facility] Work Phone: Hematocrit Auto (Bld) [Volum e fraction]on 09-20-2021 Hematocrit (Bld) [Volume fraction] 39.4 % 37-47 [facility] Work Phone: Laboratory - Chemistry and C hemistry - challengeon 09-20-2021 CO2 [Moles/Vol] 24.0 mmol/L 21.0-32.0 [facility] Work Phone: Natriuretic peptide B (Bld) [Mass/Vol] 43.0 pg/mL 0-100 [facility] Work Phone: Urea nitrogen/Creatinine [Mass ratio] 14.0 mg/mg 10-20 [facility] Work Phone: Laboratory - Hematology and Cell countson 09-20-2021 Erythrocyte distribution width (RBC) [Entitic vol] 47.4 fL 35.1-43.9 [facility] Work Phone: Erythrocyte distribution width (RBC) [Ratio] 14.7 % 11.6-14.6 [facility] Work Phone: Immature granulocytes/100 WBC (Bld) 0.400 % 0.0-0.9 [facility] Work Phone: Comment on above: IG% - Immature Granu locytes (promyelocytes, myelocytes and metamyelocytes) > 1% indicates that a LEFT SHIFT is Present. MCH (RBC) [Entitic mass] 28.4 pg 27.0-32.0 [facility] Work Phone: Nucleated RBC/100 WBC (Bld) [Ratio] 0 % 0-5 [facility] Work Phone: MCHC Auto (RBC) [Mass/Vol]on 09-20-2021 MCHC (RBC) [Mass/Vol] 32.5 g/dL 32-36 [facility] Work [facility]: No Panel Informationon 09-20 Troponin I High Sensitivity < 3 pg/mL 3.0-54.0 [facility] Work Phone: Comment on above: Please Note: New Emma t Units and Gender Specific Reference Ranges. For more information see Policy Stat Procedure [place] High Sensitivity Troponin (TNIH) and attachments. D-Dimer Quantitative (PE/DVT) 2.47 FEU/ug/m 0.27-0.49 [facility] Work Phone: Comment on above: D-Dimer ELEVATED (>0 .49): Additional studies and clinicalassessments are indicated to conclude diagnosis of:Deep Vein Thrombosis (DVT) or Pulmonary Embolism (PE)CRITICAL VALUE VERIFIED. CALLED TO RIXKCAFE82/17/22 0853 Taniya Burden.RESULTS READ BACK BY SAME . Estimated Creatinine Clearance Calc 56.34 ml/min [facility] Work Phone: Estimated GFR (MDRD) Amer 85 mL/min >60 [facility] Work Phone: Comment on above: GFR Calc Estimated GFR (MDRD) Non-Af Amer 70 mL/min >60 [facility] Work Phone: Comment on above: Non- GFR Calc Platelets bldon 09-20-2021 Platelets (Bld) [#/Vol] 161 10*3/uL 150-450 [facility] Work Phone: Serum or plasma calcium kim urement (mass/volume)on 09-20-2021 Calcium [Mass/Vol] 9.4 mg/dL 8.5-10.1 [facility] Work Phone: Serum or plasma creatinine m easurement (mass/volume)on 09-20-2021 Creatinine [Mass/Vol] 0.86 mg/dL 0.55-1.02 [facility] Work Phone: Comment on above: The validity of the calculated GFR & GFRAA in patients over 70 years has not been determined. Clinical correlation is essential. Serum or plasma urea nitroge n measurement (mass/volume)on 09-20-2021 Urea nitrogen [Mass/Vol] 12 mg/dL 7-18 [facility] Work Phone: Thin prep Papanicolaou smear with manual screeningon 09-20-2021 Thin prep Papanicolaou smear with manual screening 5-15 [facility] Work Phone: OPERATIVE NOon 09-17-2021 OPERATIVE NO HNO ID: [id number] Author: Jennifer Cuevas MD Service: Gynecology Oncology Author Type: Physician Type: Operative Report Filed: 09/23/2021 10:50 AM Note Text: [facility] - Operative Report VIDA NINA : 1950 AGE: 70. SEX: F PATIENT TYPE: I HOSP [facility] [place]: [place] LOCATION: [facility] ATTENDING PHYSICIAN: Jennifer Cuevas M.D. CSN NUMBER: [id number] DATE OF SURGERY/PROCEDURE: 09/07/2021 INCISION/PROCEDURE START TIME: 09:14 a.m. INCISION CLOSE/PROCEDURE END TIME: 12:36 p.m. 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 SURGEON: Jennifer Cuevas M.D. HUMAN PERFORMANCE CONSULTANT: assistant media planner, Dr. Donal Naidu and Dr. Shanon Seymour. [...] ligaments, which (more content not included)... Normal [facility] Bilirubin Test strip Ql (U)o n 09-10-2021 Bilirubin Ql (U) Negative Negative [facility] Work Phone: Darren 09-10-2021 SHORTY Telephone (JOSE MANUELYNONPO B) ----- VIDA NINA ([id number]) 1950 F Date Time Provider Department 09/10/21 TANIYA BALDERAS During your visit today, we recorded the following information about you: Taniya Balderas APRN.MICHELLE 09/10/2021 8:32 AM Signed Called [facility] left message on nurse line to [...] to. meds that are susceptible are iv. detention can recheck urine if still + then would need to get ID involved verbal instructions per Dr julieth Balderas APRN.[facility] Allergies As of Date: 09/10/2021 Noted [...] ERYTHEMATOSUS [M32.9] 07/15/2005 MYALGIA AND MYOSITIS NOS [[id number]] 07/15/2005 Elevated transaminase level [R74.01] 09/04/2014 Elevated blood sugar [R73.9] 09/04/2014 Mood disorder (HCC) [F39] 09/04/2014 Hard to intubate [T88.4XXA] 09/07/2021 Encounter for postoperative care [Z48.89] 09/07/2021 Endometrial cancer (HCC) [C54.1] 09/08/2021 Encounter Status:Closed by TANIYA BALDERAS on 09/10/21 Normal [facility] Culture, urineon 09-10-2021 Bacteria identified Cx Nom (U) Negative [facility] Work Phone: Ketones Test strip Ql (U)on 09-10-2021 Ketones Ql (U) Negative Negative [facility] Work Phone: Nitrite Test strip Ql (U)on 09-10-2021 Nitrite Ql (U) Negative Negative [facility] Work Phone: Protein Test strip Ql (U)on 09-10-2021 Protein Ql (U) Negative Negative [facility] Work Phone: Urine blood detectionon 04-0 RBC Ql (U) 25 /ul Negative [facility] Work Phone: Urine clarityon 09-10-2021 Clarity (U) Clear Clear [facility] Work Phone: Urine color determinationon 09-10-2021 Color (U) Yellow Yellow [facility] Work Phone: Urine glucose detectionon Glucose Ql (U) Normal mg/dl Normal [facility] Work Phone: Urine leukocyte esterase det ection by dipstickon 09-10-2021 Leukocyte esterase Test strip Ql (U) 25 /ul Negative [facility] Work Phone: Urine pHon 09-10-2021 pH (U) 7.0 [pH] 5.0 - 8.0 [facility] Work Phone: Urine specific gravity measu rementon 09-10-2021 Specific gravity (U) [Rel density] 1.005 1.002-1.03 0 [facility] Work Phone: Urobilinogen Auto test strip Ql (U)on 09-10-2021 Urobilinogen Ql (U) Normal mg/dl Normal [facility] Work Phone: ANES POSTPROC EVALon 022 ANES POSTPROC EVAL HNO ID: [id number] Author: Darrion Payne MD Service: Anesthesiology Author Type: Physician Type: Anesthesia Postprocedure Evaluation Filed: 09/09/2021 12:30 PM Note Text: POST ANESTHESIA EVALUATION NOTE : 1950 Procedure Summary Date: 09/07/21 Room / Location: [place] [address] [place] [address] OR Anesthesia Start: 812 Anesthesia Stop: 1242 [...] September 09, 2021 TIME: 12:30 PM CSN: [id number] [facility] CNPElva 09-09-2021 MICHELLEN Telephone (ÁNGEL Sprague) ----- VIDA NINA ([id number]) 1950 F Date Time Provider Department 09/09/21 JENNIFER CUEVAS During your visit today, we recorded the following information about you: Summer Turcios RN 09/09/2021 2:15 PM Signed Franklin, skilled nursing case manager at [facility] called stated, "one of patient's lap sites [...] confidential e-mail) Attempted to call Franklin at [facility] to review above message, no answer. Left message on voicemail to return call. JESUS Shah RN 09/09/2021 2:53 PM Signed Franklin from [facility] returned call to this RN. Reviewed [...] ERYTHEMATOSUS [M32.9] 07/15/2005 MYALGIA AND MYOSITIS NOS [[id number]] 07/15/2005 Elevated transaminase level [R74.01] 09/04/2014 Elevated blood sugar [R73.9] 09/04/2014 Mood disorder (HCC) [F39] 09/04/2014 Hard to intubate [T88.4XXA] 09/07/2021 Encounter for postoperative care [Z48.89] 09/07/2021 Endometrial cancer (HCC) [C54.1] 09/08/2021 Encounter Status:Closed by SUMMER TURCIOS on 09/09/21 [facility] CASE MANAGEMon 09-08-2021 CASE MANAGEM HNO ID: [id number] Author: Rosmery Mclaughlin RN Service: ? Author [...] Other Caregiver Other Caregiver Name/Phone: [place] is aware of DC and fruit picker time. RN to call report. TRANSPORTATION ARRANGEMENTS: Transportation Arrangements: ([facility]) ADDITIONAL CONTACT RESOURCES: n/a DC orders completed. Patient is discharging back to [facility] [place]. The facility has arranged for [facility] transport to pick her up at 1pm. RN is aware. Met with patient at bedside to notify of DC and transport time. SIGNATURE: Rosmery Mclaughlin RN PATIENT NAME: Vida Nina DATE: September 08, 2021 TIME: 12:28 PM PAGER/CONTACT #: [phone] [facility] HNO ID: [id number] Author: Rosmery Mclaughlin RN Service: ? Author Type: Registered Nurse Type: Care Mgt Initial Assessment Filed: 09/08/2021 10:24 AM Note Text: CARE MANAGEMENT: ASSESSMENT AND DISCHARGE PLAN SERVICE DATE: September 08, 2021 SERVICE TIME: 10:22 AM PRIMARY CARE PHYSICIAN: No primary care provider on file. Phone: None ADMISSION STATUS: Inpatient Needs Prior to Discharge: Discharge Transportation MEDICAL: [facility] MEDICARE Patient/Rda Stated Goals: To return home to life as it was;To have reduction in pain Health Insurance: [facility];Medicare;Medicaid Health Issues Impacting Discharge Plan: Newly [...] None Has the Patient Been in a Half-Way Facility in the Past 30 days?: No [...] plan for meeting these needs: return to [place] Patient's perception of need for this admission: surgery Are you interested in bedside delivery of your medications? No Is Patient Psychosocially Complex?: No ASSESSMENT AND PLAN: Medical Needs: Medical Needs: Two or more chronic diseases Psychosocial Needs: Psychosocial Needs: None FREEDOM OF CHOICE EXPLAINED: [place] of Choice Given: No Reason Not Given: Patient refused (patient prefers to return to [facility]) POTENTIAL TRANSITION PLANS Home Chart reviewed and met with patient. She is from [facility]. 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 Plan is to return to [place]. Spoke with Zari at [facility]. 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 Will updated patient and RN. SIGNATURE: Rosmery Mclaughlin RN PATIENT NAME: Vida Nina DATE: September 08, 2021 TIME: 10:22 AM PAGER/CONTACT #: [phone] [facility] 09-08-2021 [facility] HNO ID: [id number] Author: Sam Naidu DO Service: Gynecology Oncology [...] Time Provider Department Center 09/22/2021 2:30 PM [id number] CUEVAS PO DISCHARGE MEDICATIONS Current Discharge Medication [...] September 08, 2021 TIME: 7:27 AM PAGER: [phone] Normal [facility] ANES PRE-OPon 09-07-2021 ANES PRE-OP HNO ID: [id number] Author: Darrion Payne MD Service: Anesthesiology Author [...] and consent discussed: yes. Patient / Responsible Libertarian agrees to proceed: yes Patient / Surrogate [...] September 07, 2021 TIME: 8:57 AM CSN: [id number] [facility] BRIEF OP NOTon 09-07-2021 BRIEF OP NOT HNO ID: [id number] Author: Sam Naidu DO Service: Gynecology Oncology Author Type: Resident Type: Brief Op Note Filed: 09/07/2021 1:06 PM Note Text: BRIEF OPERATIVE / PROCEDURE NOTE LOG ID: [id number] SURGERY/PROCEDURE DATE: 09/07/2021 INCISION/PROCEDURE START TIME: 9:14 AM INCISION CLOSE/PROCEDURE END TIME: 12:36 PM SURGEON(S)/PROCEDURALIST( S) AND HUMAN PERFORMANCE CONSULTANT(S): Surgeon(s) and Role: * Jennifer Cuevas MD [...] September 07, 2021 TIME: 1:01 PM Normal [facility] Bacteria Ur Culton 2 Bacteria [...] F Trimeth sulfameth R >2 F Abnormal [facility] Comment on above: Performed By: #### 6 30-4 ####[facility] [id number] [address] STATES OF [facility] Basic metabolic 2000 panelon 09-07-2021 Anion gap [Moles/Vol] 13 mmol/L Normal 9-18 [facility] Comment on above: Order Comment: Bobbi alford Type: BLOOD SPECIMEN Ordering Facility: [facility] Address: [address] [place] [address] Performed By: #### 2 4321-2 #### [facility] CLIA [id number] [address] STATES OF [facility] Calcium [Mass/Vol] 9.2 mg/dL Normal 8.5-10.2 [facility] Comment on above: Order Comment: Bobbi alford Type: BLOOD SPECIMEN Ordering Facility: [facility] Address: [address] [address] Performed By: #### 2 4321-2 #### [facility] CLIA [id number] [address] [place] Chloride [Moles/Vol] 97 mmol/L Normal 97-105 [facility] Comment on above: Order Comment: Speci men Type: BLOOD SPECIMEN Ordering Facility: [facility] Address: [address] [place] [address] Performed By: #### 2 4321-2 #### [facility] CLIA [id number] [address] [place] CO2 [Moles/Vol] 22 mmol/L Normal 22-30 [facility] Comment on above: Order Comment: Speci men Type: BLOOD SPECIMEN Ordering Facility: [facility] Address: [address] [place] [address] Performed By: #### 2 4321-2 #### [facility] CLIA [id number] [address] OF [facility] Creatinine [Mass/Vol] 0.70 mg/dL Normal 0.58-0.96 [facility] Comment on above: Order Comment: Speci men Type: BLOOD SPECIMEN Ordering Facility: [facility] Address: [address] [place] [address] Performed By: #### 2 4321-2 #### [facility] CLIA [id number] [address] OF [place] ESTIMATED GLOMERULAR FILTRATION RATE 94 mL/min/1.73m??? Normal >=60 [facility] Comment on above: Order Comment: Speci men Type: BLOOD SPECIMEN Ordering Facility: [facility] Address: [address] [place] [address] Result Comment: Laura mated Glomerular Filtration Rate [...] 2 4321-2 #### [facility] CLIA [id number] [address] [place] [address] [place] Glucose [Mass/Vol] 303 mg/dL High 74-99 [facility] Comment on above: Order Comment: Bobbi alford Type: BLOOD SPECIMEN Ordering Facility: [facility] Address: [address] [place] [address] Result Comment: The [place] Diabetes Association (ADA) provides guidance for cutoff [...] Standards of Medical Care in Diabetes 2016, [place] [employer] Association. Diabetes Care. 2016.39(Suppl 1). Performed By: #### 2 4321-2 #### [facility] CLIA [id number] [address] [place] [address] [place] Potassium [Moles/Vol] 4.9 mmol/L Normal 3.7-5.1 [facility] Comment on above: Order Comment: Bobbi alford Type: BLOOD SPECIMEN Ordering Facility: [facility] Address: [address] [place] [address] Performed By: #### 2 4321-2 #### [facility] CLIA [id number] 1 [place] [address] [place] Sodium [Moles/Vol] 132 mmol/L Low 136-144 [facility] Comment on above: Order Comment: Bobbi alford Type: BLOOD SPECIMEN Ordering Facility: [facility] Address: [address] [place] [address] Performed By: #### 2 4321-2 #### [facility] CLIA [id number] [address] STATES OF [facility] Urea nitrogen [Mass/Vol] 13 mg/dL Normal 7-21 [facility] Comment on above: Order Comment: Speci men Type: BLOOD SPECIMEN Ordering Facility: [facility] Address: [address] [place] [address] Performed By: #### 2 4321-2 #### [facility] CLIA [id number] [address] [place] CBC panel Auto (Bld)on 09-07 Erythrocyte distribution width (RBC) [Ratio] 14.2 % Normal 11.5-15.0 [facility] Comment on above: Order Comment: Speci men Type: BLOOD SPECIMEN Ordering Facility: [facility] Address: [address] [place] [address] Performed By: #### 5 8410-2 #### [facility] CLIA [id number] [address] Hematocrit (Bld) [Volume fraction] 44.0 % Normal 36.0-46.0 [facility] Comment on above: Order Comment: Speci men Type: BLOOD SPECIMEN Ordering Facility: [facility] Address: [address] [place] [address] Performed By: #### 5 8410-2 #### [facility] CLIA [id number] [address] [place] Hemoglobin (Bld) [Mass/Vol] 14.2 g/dL Normal 11.5-15.5 [facility] Comment on above: Order Comment: Speci men Type: BLOOD SPECIMEN Ordering Facility: [facility] Address: [address] [place] [address] Performed By: #### 5 8410-2 #### [facility] CLIA [id number] [address] MCH (RBC) [Entitic mass] 28.9 pg Normal 26.0-34.0 [facility] Comment on above: Order Comment: Speci men Type: BLOOD SPECIMEN Ordering Facility: [facility] Address: [address] [address] Performed By: #### 5 8410-2 #### [facility] CLIA [id number] [address] MCHC (RBC) [Mass/Vol] 32.3 g/dL Normal 30.5-36.0 [facility] Comment on above: Order Comment: Speci men Type: BLOOD SPECIMEN Ordering Facility: [facility] Address: [address] [place] [address] Performed By: #### 5 8410-2 #### [facility] CLIA [id number] [address] MCV (RBC) [Entitic vol] 89.6 fL Normal 80.0-100.0 [facility] Comment on above: Order Comment: Speci men Type: BLOOD SPECIMEN Ordering Facility: [facility] Address: [address] [place] [address] Performed By: #### 5 8410-2 #### [facility] CLIA [id number] [address] Nucleated RBC (Bld) [#/Vol] 10*3/uL Normal <0.01 [facility] Comment on above: Order Comment: Speci men Type: BLOOD SPECIMEN Ordering Facility: [facility] Address: [address] [place] [address] Performed By: #### 5 8410-2 #### [facility] CLIA [id number] [address] Platelet mean volume (Bld) [Entitic vol] 10.8 fL Normal 9.0-12.7 [facility] Comment on above: Order Comment: Speci men Type: BLOOD SPECIMEN Ordering Facility: [facility] Address: [address] [place] [address] Performed By: #### 5 8410-2 #### [facility] CLIA [id number] [address] [place] [address] [place] Platelets (Bld) [#/Vol] 153 10*3/uL Normal 150-400 [facility] Comment on above: Order Comment: Bobbi alford Type: BLOOD SPECIMEN Ordering Facility: [facility] Address: [address] [place] [address] Performed By: #### 5 8410-2 #### [facility] CLIA [id number] [address] [place] RBC (Bld) [#/Vol] 4.91 10*6/uL Normal 3.90-5.20 [facility] Comment on above: Order Comment: Bobbi alford Type: BLOOD SPECIMEN Ordering Facility: [facility] Address: [address] [place] [address] Performed By: #### 5 8410-2 #### [facility] CLIA [id number] [address] WBC (Bld) [#/Vol] 8.23 10*3/uL Normal 3.70-11.00 [facility] Comment on above: Order Comment: Bobbi alford Type: BLOOD SPECIMEN Ordering Facility: [facility] Address: [address] [place] [address] Performed By: #### 5 8410-2 #### [facility] CLIA [id number] [address] OF [facility] CONSULT PROGon 09-07-2021 CONSULT PROG HNO ID: [id number] Author: Niki Crabtree RPh Service: Pharmacy Author [...] NURSING PROGon 09-07-2021 NURSING PROG HNO ID: [id number] Author: Lydia Oliver RN Service: Nursing Author Type: Registered Nurse Type: Nursing Progress Note Filed: 09/07/2021 3:19 PM Note Text: Spoke with Bernadine at [facility] to let her know patient was spending the night, as she said there is no nursing staff after 2300 Normal [facility] NURSING PROG HNO ID: [id number] Author: Lydia Oliver RN Service: Nursing Author [...] continue home meds on the floor. Normal [facility] SARS-CoV-2 RNA Resp Ql SALLY+p robeon 09-07-2021 SARS-CoV-2 (COVID-19) RNA SALLY+probe Ql (Resp) COVID 19 RESULT: SARS-CoV-2 (Agent of COVID-19) Not Detected by RT-PCR or equivalent method. This test has been authorized by FDA under an Emergency Use Authorization (EUA). [facility] Comment on above: Performed By: #### 9 4500-6 ####[facility] [id number] [address] STATES OF [facility] SURGICAL PATHOLOGYon 022 CASE REPORT Normal [facility] Comment on above: Order Comment: Speci men Type: TISSUE SPECIMEN Ordering Facility: [facility] Address: [address] [place] [id number] Result Comment: Surg ica Pathology Report Case: [id number] Authorizing Provider: Jennifer Cuevas MD Collected: 09/07/2021 11:04 AM Ordering Location: [place] [facility] Received: 09/07/2021 11:12 AM Pathologist: Oseas May MD Intraop: Derick Alvarez MD Specimen: UTERUS, CERVIX, BILATERAL FALLOPIAN TUBES AND BILATERAL OVARIES Performed By: #### S #### [facility] CLIA [id number] [address] DIAGNOSIS COMMENT Normal [facility] Comment on above: Order Comment: Speci men Type: TISSUE SPECIMEN Ordering Facility: [facility] Address: [address] [place] [address] Result Comment: Immu nohistochemical staining performed on [...] A11 and A16 were reviewed at the [facility] gynecologic pathology consensus conference via telepathology on 09/09/20[address] Lupe Younger and Andra Franco agree with the diagnosis of acute salpingitis. Laboratory Developed Test (LDT) Disclaimer: Performance characteristics of immunohistochemical, immunofluorescent and chromogenic in-situ hybridization tests have been determined by the performing laboratory within [facility]???s [facility] Pathology and Laboratory Medicine [place] ([facility], [facility], [facility] or [facility]) in a manner consistent with CLIA requirements. One or more of these tests have not been cleared or approved by the FDA. [facility] is regulated under CLIA as qualified to perform high-complexity testing. These tests are used for clinical purposes. They should not be regarded as investigational or for research. Positive and negative controls stain appropriately. Performed By: #### S #### [facility] CLIA [id number] [address] FINAL DIAGNOSIS Normal [facility] Comment on above: Order Comment: Speci men Type: TISSUE SPECIMEN Ordering Facility: [facility] Address: [address] [place] [address] Result Comment: A. U terus, cervix, bilateral [...] -Unremarkable ovaries. Performed By: #### S #### [facility] CLIA [id number] [address] [place] [address] FINAL PERFORMING LAB Normal [facility] Comment on above: Order Comment: Speci men Type: TISSUE SPECIMEN Ordering Facility: [facility] Address: [address] [place] [address] Result Comment: Diag nostic interpretation performed at [facility], [address] [place] [address] CLIA# [id number] Cane Flume Chute Operator: Alok Jonas M.D. Performed By: #### S #### [facility] CLIA [id number] [address] [place] [address] GROSS DESCRIPTION Normal [facility] Comment on above: Order Comment: Speci men Type: TISSUE SPECIMEN Ordering Facility: [facility] Address: [address] [address] Result Comment: A. U TERUS, CERVIX, BILATERAL [...] fibrous ovarian parenchyma with no lesions identified. Rda sections are submitted as follows: A1-anterior cervix [...] A 17-right ovary Gross examination performed at [facility], [address] [place] [address] CLIA#[id number] OLS September 08, 2021 10:33 AM Performed By: #### S #### [facility] CLIA [id number] [address] [place] INTRAOPERATIVE DIAGNOSIS Normal [facility] Comment on above: Order Comment: Speci men Type: TISSUE SPECIMEN Ordering Facility: [facility] Address: [address] [place] [address] Result Comment: A. U TERUS, CERVIX, BILATERAL FALLOPIAN TUBES AND BILATERAL OVARIES. Gross diagnosis: Uterus, cervix, bilateral fallopian tubes, bilateral ovaries- Endometrial tumor grossly invading greater than 50% into the uterine wall (AC) Performed By: #### S #### [facility] CLIA [id number] [address] [place] SYNOPTIC REPORT ENDOMETRIUM Normal [facility] Comment on above: Order Comment: Speci men Type: TISSUE SPECIMEN Ordering Facility: [facility] Address: [address] [place] [address] Result Comment: ENDO METRIUM, HYSTERECTOMY - All [...] Stage: IB Performed By: #### S #### [facility] CLIA [id number] [address] OF [facility] CBC panel Auto (Bld)on 09-01 Erythrocyte distribution width (RBC) [Ratio] 14.5 % Normal 11.5-15.0 [facility] Comment on above: Order Comment: Bobbi alford Type: BLOOD SPECIMEN Ordering Facility: [facility] Address: [address] [address] Performed By: #### 5 8410-2 #### [facility] CLIA [id number] [address] STATES OF [facility] Hematocrit (Bld) [Volume fraction] 41.0 % Normal 36.0-46.0 [facility] Comment on above: Order Comment: Laurai men Type: BLOOD SPECIMEN Ordering Facility: [facility] Address: [address] [address] Performed By: #### 5 8410-2 #### [facility] CLIA [id number] [address] [place] Hemoglobin (Bld) [Mass/Vol] 13.3 g/dL Normal 11.5-15.5 [facility] Comment on above: Order Comment: Laurai men Type: BLOOD SPECIMEN Ordering Facility: [facility] Address: [address] [address] Performed By: #### 5 8410-2 #### [facility] CLIA [id number] [address] MCH (RBC) [Entitic mass] 28.8 pg Normal 26.0-34.0 [facility] Comment on above: Order Comment: Speci men Type: BLOOD SPECIMEN Ordering Facility: [facility] Address: [address] [place] [address] Performed By: #### 5 8410-2 #### [facility] CLIA [id number] [address] MCHC (RBC) [Mass/Vol] 32.4 g/dL Normal 30.5-36.0 [facility] Comment on above: Order Comment: Speci men Type: BLOOD SPECIMEN Ordering Facility: [facility] Address: [address] [place] [address] Performed By: #### 5 8410-2 #### [facility] CLIA [id number] [address] MCV (RBC) [Entitic vol] 88.7 fL Normal 80.0-100.0 [facility] Comment on above: Order Comment: Speci men Type: BLOOD SPECIMEN Ordering Facility: [facility] Address: [address] [place] [address] Performed By: #### 5 8410-2 #### [facility] CLIA [id number] [address] Nucleated RBC (Bld) [#/Vol] 10*3/uL Normal <0.01 [facility] Comment on above: Order Comment: Speci men Type: BLOOD SPECIMEN Ordering Facility: [facility] Address: [address] [place] [address] Performed By: #### 5 8410-2 #### [facility] CLIA [id number] [address] OF [facility] Platelet mean volume (Bld) [Entitic vol] 10.5 fL Normal 9.0-12.7 [facility] Comment on above: Order Comment: Speci men Type: BLOOD SPECIMEN Ordering Facility: [facility] Address: [address] [address] Performed By: #### 5 8410-2 #### [facility] CLIA [id number] [address] Platelets (Bld) [#/Vol] 167 10*3/uL Normal 150-400 [facility] Comment on above: Order Comment: Speci men Type: BLOOD SPECIMEN Ordering Facility: [facility] Address: [address] [place] [address] Performed By: #### 5 8410-2 #### [facility] CLIA [id number] [address] RBC (Bld) [#/Vol] 4.62 10*6/uL Normal 3.90-5.20 [facility] Comment on above: Order Comment: Speci men Type: BLOOD SPECIMEN Ordering Facility: [facility] Address: [address] [place] [address] Performed By: #### 5 8410-2 #### [facility] CLIA [id number] [address] WBC (Bld) [#/Vol] 6.29 10*3/uL Normal 3.70-11.00 [facility] Comment on above: Order Comment: Speci men Type: BLOOD SPECIMEN Ordering Facility: [facility] Address: [address] [place] [address] Performed By: #### 5 8410-2 #### [facility] CLIA [id number] [address] CONFIRM BLOOD TYPEon 022 ABO O Normal [facility] Comment on above: Order Comment: Speci men Type: BLOOD SPECIMEN Ordering Facility: [facility] Address: [address] [place] [address] Performed By: #### C ONABO #### [facility] CLIA [id number] [address] Rh Nom (Bld) Positive Normal [facility] Comment on above: Order Comment: Speci men Type: BLOOD SPECIMEN Ordering Facility: [facility] Address: [address] [place] [address] Performed By: #### C ONABO #### [facility] CLIA [id number] [address] [id number] [facility] HISTORY PHYSICALon 2 HISTORY PHYSICAL HNO ID: [id number] Author: Naila Barrientos APRN.MICHELLE Service: ? Author [...] with Dr. Cuevas. Surgery will be at [facility] OR Scheduled as an TBA Have you been in contact with someone with known coronavirus/Covid 19? no Have you had surgery or pre testing at [facility] in the past 3 years? no [...] Negative for: AICD/PPM, chest pain, CHF, recent [place] and open heart surgery. GI: Positive for: abdominal pain Negative for: nausea and vomiting. : No history of dysuria, frequency or incontinence, stones or chronic kidney disease. No difficulty urinating, nocturia > 1 time per night or hematuria. 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 [...] Yes de (more content not included)... Normal [facility] TYPE AND SCREEN,30 DAYon ABO O Normal [facility] Comment on above: Order Comment: Speci men Type: BLOOD SPECIMEN Ordering Facility: [facility] Address: [address] [place] [address] Performed By: #### T SCR30 #### [facility] CLIA [id number] [address] HISTORICAL AB SCR STATUS Negative [facility] Comment on above: Order Comment: Speci men Type: BLOOD SPECIMEN Ordering Facility: [facility] Address: [address] [place] [address] Performed By: #### T SCR30 #### [facility] CLIA [id number] [address] [place] [address] Rh Nom (Bld) Positive [facility] Comment on above: Order Comment: Speci men Type: BLOOD SPECIMEN Ordering Facility: [facility] Address: [address] [place] [address] Performed By: #### T SCR30 #### [facility] CLIA [id number] [address] [place] CNOVSPon 08-21-2021 CNOVSP Visit (SP) Office (ROGELIO) ----- VIDA NINA ([id number]) 1950 F Date Time Provider Department 08/21/21 1:30 PM JENNIFER CUEVAS During your visit today, we recorded the following information about you: Temperature Pulse Blood pressure Weight 97.8 degrees 113/minute 144/72 130 kg Height 1.651 m Jennifer Cuevas MD 08/26/2021 1:21 PM Signed Gynecologic Oncology [facility] Consult Date of service: 08/21/2021 PCP: [...] many years since she has seen a aircraft engine assembler, maybe > 10 years. 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 Acid Purification Equipment Operator History ? 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 Age at Menarche: ? Age at First : ? Age at Menopause: ? Acid Purification Equipment Operator History Comments: ? Sexual Activity: Not [...] as needed. (more content not included)... Normal [facility] Darren 08-07-2021 MICHELLE Telephone (ÁNGEL Sprague) ----- VIDA NINA ([id number]) 1950 F Date Time Provider Department 08/07/21 JENNIFER CUEVAS During your visit today, we recorded the following information about you: Jeffrey Ferris 08/07/2021 1:26 PM Signed Called gilberto the nurse at [facility] where the patient is living [...] ERYTHEMATOSUS [M32.9] 07/15/2005 MYALGIA AND MYOSITIS NOS [[id number]] 07/15/2005 Elevated transaminase level [R74.01] 09/04/2014 Elevated blood sugar [R73.9] 09/04/2014 Mood disorder (HCC) [F39] 09/04/2014 Encounter Status:Closed by JEFFREY FERRIS on 08/07/21 Normal [facility] CNPNon 08-05-2021 CNPN Telephone (OBGYWM) ----- VIDA NINA ([id number]) 1950 F Date Time Provider Department 08/05/21 KRUNAL ERAZO During your visit today, we recorded the following information about you: Krunal Erazo MD 08/05/2021 8:30 AM Signed Called listed numbers under home phone, and the numbers are not working. Called number listed for patient's keycase assembler regarding results, but it was stated that patient does not have a keycase assembler currently. I was given the number [phone] to call, which is [facility] where patient resides. Called this number and left a VM asking them to call back regarding patient results. I had offered the patient a follow up visit this week to review results, but she did prefer a phone call. Pathology shows endometrioid adenocarcinoma. I will place a referral to lamination operator oncology. Recommend that she see Dr. Jennfier Cuevas in [place] as that would be the closest for her. Krunal Erazo MD 08/05/2021 10:06 AM Signed Discussed results with a nurse Gilberto over the phone and plan of care. She states patient saw an oncologist as well at [facility] and is scheduled for a CTAP. She will have the patient call our office back today for me to discuss results with her as well. Krunal Erazo MD 08/05/2021 10:19 AM Signed Discussed results with the patient and she understands the biopsy shows an endometrial cancer, and that I placed a referral to lamination operator oncology for a consultation. Please assist in scheduling this patient. Andra Jesus RN 08/05/2021 11:33 AM Signed Scheduled patient with Dr. Cuevas this Tuesday, 08/07 at 1:00 PM. Spoke with the nurse, Gilberto. Patient's CT scan is scheduled for Tuesday. Phone number given to change appointment since transportation needs arranged. Notified Gilberto that he is in [place] on Tuesdays and every other Tuesday. 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] Order(s):CONSULT TO GYNECOLOGIC/ONCOLOGY [[id number]] Order #: [id number]: 1 FUTURE Prescriptions as of 08/05/2021 - [...] ERYTHEMATOSUS [M32.9] 07/15/2005 MYALGIA AND MYOSITIS NOS [[id number]] 07/15/2005 Elevated transaminase level [R74.01] 09/04/2014 Elevated blood sugar [R73.9] 09/04/2014 Mood disorder (HCC) [F39] 09/04/2014 Encounter Status:Closed by PAMELA MATUTE RN on 08/05/21 [facility] No Panel Informationon 07-30 CA 125 Antigen 85.5 U/mL 0.0-38.1 [facility] Work Phone: Comment on above: [employer] El ectrochemiluminescence Immunoassay(ECLIA)Values obtained with different assay methods or kits cannotbe used interchangeably. Results cannot be interpreted asabsolute evidence of the presence or absence of malignantdisease.Performed at: [address] [id number] Director: Suhas Deal PhD, Phone: [phone] CNOVon 07-29-2021 CNOV Office Visit (OBGYWM ) ----- VIDA NINA ([id number]) 1950 F Date Time Provider Department 07/29/21 [...] many years since she has seen a aircraft engine assembler, maybe > 10 years. 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 Acid Purification Equipment Operator History LMP: Postmenopausal Age at Menarche: Age at First : Age at Menopause: Acid Purification Equipment Operator History Comments: Sexual Activity: Not Asked; [...] non-tender and (more content not included)... Normal [facility] SURGICAL PATHOLOGYon 022 SURGICAL PATHOLOGY ADDENDUM PRESENT Specimen originated from [facility] Specimen #: [id number] Submitting Physician: KRUNAL ERAZO, DO FINAL DIAGNOSIS [...] in-situ hybridization tests have been determined by [facility]'s [facility] Pathology and [facility] [place] ([facility]) in a manner consistent with CLIA requirements. One or more of these tests have not been cleared or approved by the FDA. [facility] is regulated under CLIA as qualified [...] completed on all uterine/endometrial carcinomas at the [facility]. IHC stains for MMR proteins were [...] more information or questions, please call the [facility] at . Andra Webb (more content not included)... Normal [facility] CNPNon 07-27-2021 CNPN Telephone (OBGYWM) ----- VIDA NINA ([id number]) 1950 F CPA Date Time Provider Department 07/27/21 KRUNAL ERAZO OBTRUDY During your visit today, we recorded the following information about you: Andra Jesus RN 07/27/2021 8:14 AM Signed KJ states that patient was seen at [facility] ER yesterday for vaginal bleeding and possible pelvic mass. Called [facility] ER and requested records and imaging [...] patient is minimally ambulatory and coming from [facility]. Since she is a new patient who is minimally ambulatory, and likely needs an EMB and cervical biopsies, would prefer to have 60 min appointment to get everything completed in one day as well as mental health counselor her. Can offer her the 2.20 [...] ERYTHEMATOSUS [M32.9] 07/15/2005 MYALGIA AND MYOSITIS NOS [[id number]] 07/15/2005 Elevated transaminase level [R74.01] 09/04/2014 Elevated blood sugar [R73.9] 09/04/2014 Mood disorder (HCC) [F39] 09/04/2014 Encounter Status:Closed by ELISABETH GREEN LPN on 07/27/21 Normal [facility] Absolute lymphocyte counton 07-26-2021 Lymphocytes Auto (Unsp spec) [#/Vol] 1.24 10*3/uL 0.83-4.51 [facility] Work Phone: Basophil percentageon 2021 Basophils/100 WBC (Bld) 0.6 % 0-1 [facility] Work Phone: Chloride [Moles/Vol] 105 mmol/L 98-107 [facility] Work Phone: Eosinophils/100 WBC (Bld) 3.9 % 0-5 [facility] Work Phone: Glucose [Mass/Vol] 185 mg/dL 74-106 [facility] Work Phone: Comment on above: Fasting Glucose resu lt greater than or equal to 126 mg/dL suggests DIABETES MELLITUS per A.D.A. criteria. Neutrophils (Bld) [#/Vol] 3.2 10*3/uL 2.0-7.7 [facility] Work Phone: Neutrophils/100 WBC (Bld) 62.1 % 47-70 [facility] Work Phone: Potassium [Moles/Vol] 4.4 mmol/L 3.5-5.1 [facility] Work Phone: Sodium [Moles/Vol] 135 mmol/L 136-145 [facility] Work Phone: WBC (Bld) [#/Vol] 5.1 10*3/uL 4.4-11.0 [facility] Work Phone: Blood erythrocytes count (nu mber/volume)on 07-26-2021 RBC (Bld) [#/Vol] 4.66 10*6/uL 4.2-5.4 [facility] Work Phone: Blood hemoglobin measurement (mass/volume)on 07-26-2021 Hemoglobin (Bld) [Mass/Vol] 13.8 g/dL 12.0-15.0 [facility] Work Phone: Blood lymphocytes/100 leukoc yteson 07-26-2021 Lymphocytes/100 WBC (Bld) 24.5 % 19-41 [facility] Work Phone: Blood monocytes/100 leukocyt eson 07-26-2021 Monocytes/100 WBC (Bld) 8.5 % 0-10 [facility] Work Phone: Blood platelet mean volumeon 07-26-2021 Platelet mean volume (Bld) [Entitic vol] 10.1 fL 6.2-12.0 [facility] Work Phone: Determination of erythrocyte mean corpuscular volume (MCV)on 07-26-2021 MCV (RBC) [Entitic vol] 88.2 fL 81-99 [facility] Work Phone: Hematocrit Auto (Bld) [Volum e fraction]on 07-26-2021 Hematocrit (Bld) [Volume fraction] 41.1 % 37-47 [facility] Work Phone: Laboratory - Chemistry and C hemistry - challengeon 07-26-2021 CO2 [Moles/Vol] 24.0 mmol/L 21.0-32.0 [facility] Work Phone: Urea nitrogen/Creatinine [Mass ratio] 17.3 mg/mg 10-20 [facility] Work Phone: Laboratory - Hematology and Cell countson 07-26-2021 Erythrocyte distribution width (RBC) [Entitic vol] 46.8 fL 35.1-43.9 [facility] Work Phone: Erythrocyte distribution width (RBC) [Ratio] 14.6 % 11.6-14.6 [facility] Work Phone: Immature granulocytes/100 WBC (Bld) 0.400 % 0.0-0.9 [facility] Work Phone: Comment on above: IG% - Immature Granu locytes (promyelocytes, myelocytes and metamyelocytes) > 1% indicates that a LEFT SHIFT is Present. MCH (RBC) [Entitic mass] 29.6 pg 27.0-32.0 [facility] Work Phone: Nucleated RBC/100 WBC (Bld) [Ratio] 0 % 0-5 [facility] Work Phone: MCHC Auto (RBC) [Mass/Vol]on 07-26-2021 MCHC (RBC) [Mass/Vol] 33.6 g/dL 32-36 [facility] Work Phone: No Panel Informationon 07-26 Estimated Creatinine Clearance Calc 55.69 ml/min [facility] Work Phone: Estimated GFR (MDRD) Amer 84 mL/min >60 [facility] Work Phone: Comment on above: GFR Calc Estimated GFR (MDRD) Non-Af Amer 69 mL/min >60 [facility] Work Phone: Comment on above: Non- GFR Calc Platelets bldon 07-26-2021 Platelets (Bld) [#/Vol] 151 10*3/uL 150-450 [facility] Work Phone: Serum or plasma calcium kim urement (mass/volume)on 07-26-2021 Calcium [Mass/Vol] 9.2 mg/dL 8.5-10.1 [facility] Work Phone: Serum or plasma creatinine m easurement (mass/volume)on 07-26-2021 Creatinine [Mass/Vol] 0.87 mg/dL 0.55-1.02 [facility] Work Phone: Comment on above: The validity of the calculated GFR & GFRAA in patients over 70 years has not been determined. Clinical correlation is essential. Serum or plasma urea nitroge n measurement (mass/volume)on 07-26-2021 Urea nitrogen [Mass/Vol] 15 mg/dL 7-18 [facility] Work Phone: Thin prep Papanicolaou smear with manual screeningon 07-26-2021 Thin prep Papanicolaou smear with manual screening 6 5-15 [facility] Work Phone: Absolute lymphocyte counton 07-14-2021 Lymphocytes Auto (Unsp spec) [#/Vol] 1.32 10*3/uL 0.83-4.51 [facility] Work Phone: Basophil percentageon 2021 Basophils/100 WBC (Bld) 0.6 % 0-1 [facility] Work Phone: Bilirubin [Mass/Vol] 0.40 mg/dL 0.20-1.00 [facility] Work Phone: Comment on above: For patients on eltr ombopag therapy, use of [employer] [place] TBIL is not recommended. Chloride [Moles/Vol] 104 mmol/L 98-107 [facility] Work Phone: Eosinophils/100 WBC (Bld) 3.1 % 0-5 [facility] Work Phone: Glucose [Mass/Vol] 201 mg/dL 74-106 [facility] Work Phone: Comment on above: Glucose result great er than or equal to 200 mg/dLsuggests DIABETES MELLITUS per A.D.A. criteria. Neutrophils (Bld) [#/Vol] 3.0 10*3/uL 2.0-7.7 [facility] Work Phone: Neutrophils/100 WBC (Bld) 59.5 % 47-70 [facility] Work Phone: Potassium [Moles/Vol] 4.2 mmol/L 3.5-5.1 [facility] Work Phone: Protein [Mass/Vol] 7.6 g/dL 6.4-8.2 [facility] Work Phone: Sodium [Moles/Vol] 136 mmol/L 136-145 [facility] Work Phone: WBC (Bld) [#/Vol] 5.1 10*3/uL 4.4-11.0 [facility] Work Phone: Blood erythrocytes count (nu mber/volume)on 07-14-2021 RBC (Bld) [#/Vol] 4.23 10*6/uL 4.2-5.4 [facility] Work Phone: Blood hemoglobin measurement (mass/volume)on 07-14-2021 Hemoglobin (Bld) [Mass/Vol] 12.9 g/dL 12.0-15.0 [facility] Work Phone: Blood lymphocytes/100 leukoc yteson 07-14-2021 Lymphocytes/100 WBC (Bld) 26.0 % 19-41 [facility] Work Phone: Blood monocytes/100 leukocyt eson 07-14-2021 Monocytes/100 WBC (Bld) 10.4 % 0-10 [facility] Work Phone: Blood platelet mean volumeon 07-14-2021 Platelet mean volume (Bld) [Entitic vol] 10.9 fL 6.2-12.0 [facility] Work Phone: Determination of erythrocyte mean corpuscular volume (MCV)on 07-14-2021 MCV (RBC) [Entitic vol] 88.9 fL 81-99 [facility] Work Phone: Hematocrit Auto (Bld) [Volum e fraction]on 07-14-2021 Hematocrit (Bld) [Volume fraction] 37.6 % 37-47 [facility] Work Phone: Laboratory - Chemistry and C hemistry - challengeon 07-14-2021 ALP [Catalytic activity/Vol] 144 U/L 45-117 [facility] Work Phone: ALT [Catalytic activity/Vol] 28 U/L 13-56 [facility] Work Phone: CO2 [Moles/Vol] 24.0 mmol/L 21.0-32.0 [facility] Work Phone: Globulin (S) [Mass/Vol] 4.7 g/dL 2.2-4.2 [facility] Work Phone: Urea nitrogen/Creatinine [Mass ratio] 18.0 mg/mg 10-20 [facility] Work Phone: Laboratory - Hematology and Cell countson 07-14-2021 Erythrocyte distribution width (RBC) [Entitic vol] 46.7 fL 35.1-43.9 [facility] Work Phone: Erythrocyte distribution width (RBC) [Ratio] 14.5 % 11.6-14.6 [facility] Work Phone: Immature granulocytes/100 WBC (Bld) 0.400 % 0.0-0.9 [facility] Work Phone: Comment on above: IG% - Immature Granu locytes (promyelocytes, myelocytes and metamyelocytes) > 1% indicates that a LEFT SHIFT is Present. MCH (RBC) [Entitic mass] 30.5 pg 27.0-32.0 [facility] Work Phone: Nucleated RBC/100 WBC (Bld) [Ratio] 0 % 0-5 [facility] Work Phone: MCHC Auto (RBC) [Mass/Vol]on 07-14-2021 MCHC (RBC) [Mass/Vol] 34.3 g/dL 32-36 [facility] Work Phone: No Panel Informationon 07-14 Estimated GFR (MDRD) Amer 95 mL/min >60 [facility] Work Phone: Comment on above: GFR Calc Estimated GFR (MDRD) Non-Af Amer 78 mL/min >60 [facility] Work Phone: Comment on above: Non- GFR Calc Vitamin D 25-Hydroxy 79.0 ng/mL [facility] Work Phone: Comment on above: Vitamin D 25(OH) Sta tus Range Deficiency <20 ng/mL (50nmol/L) Insufficiency 20 - 30 ng/mL (50 - 75 nmol/L) Sufficiency 30 - 100 ng/mL (75 - 250 nmol/L) Toxicity >100 ng/mL (>250 nmol/L) Platelets bldon 07-14-2021 Platelets (Bld) [#/Vol] 170 10*3/uL 150-450 [facility] Work Phone: Serum or plasma albumin kim urement (mass/volume)on 07-14-2021 Albumin [Mass/Vol] 2.9 g/dL 3.2-5.0 [facility] Work Phone: Serum or plasma albumin/glob ulin mass ratioon 07-14-2021 Albumin/Globulin [Mass ratio] 0.6 {ratio} 0.9-2.4 [facility] Work Phone: Serum or plasma calcium kim urement (mass/volume)on 07-14-2021 Calcium [Mass/Vol] 8.7 mg/dL 8.5-10.1 [facility] Work Phone: Serum or plasma creatinine m easurement (mass/volume)on 07-14-2021 Creatinine [Mass/Vol] 0.78 mg/dL 0.55-1.02 [facility] Work Phone: Comment on above: The validity of the calculated GFR & GFRAA in patients over 70 years has not been determined. Clinical correlation is essential. Serum or plasma urea nitroge n measurement (mass/volume)on 07-14-2021 Urea nitrogen [Mass/Vol] 14 mg/dL 7-18 [facility] Work Phone: Thin prep Papanicolaou smear with manual screeningon 07-14-2021 Thin prep Papanicolaou smear with manual screening 26 U/L 15-37 [facility] Work Phone: Thin prep Papanicolaou smear with manual screening 8 5-15 [facility] Work Phone: Absolute lymphocyte counton 07-08-2021 Lymphocytes Auto (Unsp spec) [#/Vol] 1.26 10*3/uL 0.83-4.51 [facility] Work Phone: Basophil percentageon 2021 Basophils/100 WBC (Bld) 0.6 % 0-1 [facility] Work Phone: Bilirubin [Mass/Vol] 0.40 mg/dL 0.20-1.00 [facility] Work Phone: Comment on above: For patients on eltr ombopag therapy, use of [employer] [place] TBIL is not recommended. Chloride [Moles/Vol] 104 mmol/L 98-107 [facility] Work Phone: Eosinophils/100 WBC (Bld) 4.5 % 0-5 [facility] Work Phone: Glucose [Mass/Vol] 181 mg/dL 74-106 [facility] Work Phone: Comment on above: Fasting Glucose resu lt greater than or equal to 126 mg/dL suggests DIABETES MELLITUS per A.D.A. criteria. Neutrophils (Bld) [#/Vol] 2.8 10*3/uL 2.0-7.7 [facility] Work Phone: Neutrophils/100 WBC (Bld) 58.0 % 47-70 [facility] Work Phone: Potassium [Moles/Vol] 4.5 mmol/L 3.5-5.1 [facility] Work Phone: Protein [Mass/Vol] 7.5 g/dL 6.4-8.2 [facility] Work Phone: Sodium [Moles/Vol] 136 mmol/L 136-145 [facility] Work Phone: WBC (Bld) [#/Vol] 4.9 10*3/uL 4.4-11.0 [facility] Work Phone: Blood erythrocytes count (nu mber/volume)on 07-08-2021 RBC (Bld) [#/Vol] 4.16 10*6/uL 4.2-5.4 [facility] Work Phone: Blood hemoglobin measurement (mass/volume)on 07-08-2021 Hemoglobin (Bld) [Mass/Vol] 12.2 g/dL 12.0-15.0 [facility] Work Phone: Blood lymphocytes/100 leukoc yteson 07-08-2021 Lymphocytes/100 WBC (Bld) 25.7 % 19-41 [facility] Work Phone: Blood monocytes/100 leukocyt eson 07-08-2021 Monocytes/100 WBC (Bld) 10.8 % 0-10 [facility] Work Phone: Blood platelet mean volumeon 07-08-2021 Platelet mean volume (Bld) [Entitic vol] 11.2 fL 6.2-12.0 [facility] Work Phone: Determination of erythrocyte mean corpuscular volume (MCV)on 07-08-2021 MCV (RBC) [Entitic vol] 89.2 fL 81-99 [facility] Work Phone: Hematocrit Auto (Bld) [Volum e fraction]on 07-08-2021 Hematocrit (Bld) [Volume fraction] 37.1 % 37-47 [facility] Work Phone: Laboratory - Chemistry and C hemistry - challengeon 07-08-2021 ALP [Catalytic activity/Vol] 131 U/L 45-117 [facility] Work Phone: ALT [Catalytic activity/Vol] 32 U/L 13-56 [facility] Work Phone: CO2 [Moles/Vol] 23.0 mmol/L 21.0-32.0 [facility] Work Phone: Globulin (S) [Mass/Vol] 4.6 g/dL 2.2-4.2 [facility] Work Phone: Urea nitrogen/Creatinine [Mass ratio] 18.5 mg/mg 10-20 [facility] Work Phone: Laboratory - Hematology and Cell countson 07-08-2021 Erythrocyte distribution width (RBC) [Entitic vol] 47.6 fL 35.1-43.9 [facility] Work Phone: Erythrocyte distribution width (RBC) [Ratio] 14.6 % 11.6-14.6 [facility] Work Phone: Immature granulocytes/100 WBC (Bld) 0.400 % 0.0-0.9 [facility] Work Phone: Comment on above: IG% - Immature Granu locytes (promyelocytes, myelocytes and metamyelocytes) > 1% indicates that a LEFT SHIFT is Present. MCH (RBC) [Entitic mass] 29.3 pg 27.0-32.0 [facility] Work Phone: Nucleated RBC/100 WBC (Bld) [Ratio] 0 % 0-5 [facility] Work Phone: MCHC Auto (RBC) [Mass/Vol]on 07-08-2021 MCHC (RBC) [Mass/Vol] 32.9 g/dL 32-36 [facility] Work Phone: No Panel Informationon 07-08 Estimated GFR (MDRD) Amer 84 mL/min >60 [facility] Work Phone: Comment on above: GFR Calc Estimated GFR (MDRD) Non-Af Amer 69 mL/min >60 [facility] Work Phone: Comment on above: Non- GFR Calc Vitamin D 25-Hydroxy 88.3 ng/mL [facility] Work Phone: Comment on above: Vitamin D 25(OH) Sta tus Range Deficiency <20 ng/mL (50nmol/L) Insufficiency 20 - 30 ng/mL (50 - 75 nmol/L) Sufficiency 30 - 100 ng/mL (75 - 250 nmol/L) Toxicity >100 ng/mL (>250 nmol/L) Platelets bldon 07-08-2021 Platelets (Bld) [#/Vol] 159 10*3/uL 150-450 [facility] Work Phone: Serum or plasma albumin kim urement (mass/volume)on 07-08-2021 Albumin [Mass/Vol] 2.9 g/dL 3.2-5.0 [facility] Work Phone: Serum or plasma albumin/glob ulin mass ratioon 07-08-2021 Albumin/Globulin [Mass ratio] 0.6 {ratio} 0.9-2.4 [facility] Work Phone: Serum or plasma calcium kim urement (mass/volume)on 07-08-2021 Calcium [Mass/Vol] 9.0 mg/dL 8.5-10.1 [facility] Work Phone: Serum or plasma creatinine m easurement (mass/volume)on 07-08-2021 Creatinine [Mass/Vol] 0.87 mg/dL 0.55-1.02 [facility] Work Phone: Comment on above: The validity of the calculated GFR & GFRAA in patients over 70 years has not been determined. Clinical correlation is essential. Serum or plasma urea nitroge n measurement (mass/volume)on 07-08-2021 Urea nitrogen [Mass/Vol] 16 mg/dL 7-18 [facility] Work Phone: Thin prep Papanicolaou smear with manual screeningon 07-08-2021 Thin prep Papanicolaou smear with manual screening 32 U/L 15-37 [facility] Work Phone: Thin prep Papanicolaou smear with manual screening 9 5-15 [facility] Work Phone: No Panel Informationon 06-12 Vitamin D 25-Hydroxy 101.7 ng/mL [facility] Work Phone: Comment on above: Vitamin [...] Visit: Diabetes [facility] 10-26-2016 Adolescent depression screening assessment Adolescent depression screening assessment Invalid Interpretation Code [facility] Work Phone: Documentation of current medications (procedure) Done Invalid Interpretation Code [facility] Work Phone: Fall risk assessment Fall risk assessment Invali d Interpretation Code [facility] Work Phone: Tobacco smoking status NHIS Never Invalid Interpretation Code [facility] Work Phone: Tobacco use CPHS Former smoker Invalid Interpretation Code [facility] Work Phone: Office Visit: [facility] 11-05-2015 Breast Mammogram screening Normal Bilateral Invalid Interpretation Code [facility] Work Phone: Colonoscopy (procedure) Colonoscopy (procedure) Invalid Interpretation Code [facility] Work Phone: Culture, urine Bacteria identified Cx Nom (U) Negative [facility] Work Phone: Bacteria identified Cx Nom (U) Escherichia coli [facility] Work Phone: Laboratory - Microbiology an d Antimicrobial susceptibility Bacteria identified Cx Nom (Bld) Negative [facility] Work Phone: No Panel Information SARS-CoV-2 & FLU Antigen (Rapid) [facility] Work Phone: Vital Signs Date Time Vital Sign Value Performing Clinician Facility 10-11-2024 07:00-0400 SaO2% (BldA) [Mass fraction] 95 % Dr. Shayna Malhotra MD Work Phone: [facility] 10-11-2024 06:49-0400 Body temperature 97.6 [degF] Dr. Shayna Malhotra MD Work Phone: [facility] 10-11-2024 06:49-0400 Diastolic blood pressure 76 mm[Hg] Dr. Shayna Malhotra MD Work Phone: [facility] 10-11-2024 06:49-0400 Heart rate 106 /min Dr. Shayna Malhotra MD Work Phone: [facility] 10-11-2024 06:49-0400 Respiratory rate 20 /min Dr. Shayna Malhotra MD Work Phone: [facility] 10-11-2024 06:49-0400 Systolic blood pressure 153 mm[Hg] Dr. Shayna Malhotra MD Work Phone: [facility] 10-11-2024 06:00-0400 Body mass index (BMI) [Ratio] 49.6 kg/m2 Dr. Shayna Malhotra MD Work Phone: [facility] 10-11-2024 06:00-0400 Body weight 135.[address] Shayan Malhotra MD Work Phone: [facility] 10-10-2024 14:58-0400 Body height 165.[address] Shayna Malhotra MD Work Phone: [facility] 10-09-2024 20:55-0400 Diastolic blood pressure 57 mm[Hg] Dr. Shayna Malhotra MD Work Phone: [facility] 10-09-2024 20:55-0400 Heart rate 102 /min Dr. Shayna Malhotra MD Work Phone: [facility] 10-09-2024 20:55-0400 Respiratory rate 20 /min Dr. Shayna Malhotra MD Work Phone: [facility] 10-09-2024 20:55-0400 SaO2% (BldA) [Mass fraction] 98 % Dr. Shayna Malhotra MD Work Phone: [facility] 10-09-2024 20:55-0400 Systolic blood pressure 121 mm[Hg] Dr. Shayna Malhotra MD Work Phone: [facility] 10-09-2024 16:55-0400 Body height 165.[address] Shayna Malhotra MD Work Phone: [facility] 10-09-2024 16:55-0400 Body mass index (BMI) [Ratio] 49.1 kg/m2 Dr. Shayna Malhotra MD Work Phone: [facility] 10-09-2024 16:55-0400 Body temperature 97.8 [degF] Dr. Shayna Malhotra MD Work Phone: [facility] 10-09-2024 16:55-0400 Body weight [address] Shayna Malhotra MD Work Phone: [facility] 07-04-2024 13:06-0500 Body mass index (BMI) [Ratio] 49.9 kg/m2 Dr. Shayna Malhotra MD Work Phone: [facility] 07-04-2024 13:06-0500 Body temperature 97.8 [degF] Dr. Shayna Malhotra MD Work Phone: [facility] 07-04-2024 13:06-0500 Body weight 136.[address] Shayna Malhotra MD Work Phone: [facility] 07-04-2024 13:06-0500 Diastolic blood pressure 80 mm[Hg] Dr. Shayna Malhotra MD Work Phone: [facility] 07-04-2024 13:06-0500 Heart rate 107 /min Dr. Shayna Malhotra MD Work Phone: [facility] 07-04-2024 13:06-0500 Respiratory rate 16 /min Dr. Shayna Malhotra MD Work Phone: [facility] 07-04-2024 13:06-0500 SaO2% (BldA) [Mass fraction] 94 % Dr. Shayna Malhotra MD Work Phone: [facility] 07-04-2024 13:06-0500 Systolic blood pressure 142 mm[Hg] Dr. Shayna Malhotra MD Work Phone: [facility] 01-09-2023 19:06-0400 Body temperature 99.5 [degF] Dr. Shayna Malhotra Work Phone: [facility] 01-09-2023 19:06-0400 Heart rate 115 /min Dr. Shayna Malhotra Work Phone: [facility] 01-09-2023 19:06-0400 Respiratory rate 16 /min Dr. Shayna Malhotra Work Phone: [facility] 01-09-2023 19:06-0400 SaO2% (BldA) [Mass fraction] 95 % Dr. Shayna Malhotra Work Phone: [facility] 01-09-2023 17:53-0400 Diastolic blood pressure 89 mm[Hg] Dr. Shayna Malhotra Work Phone: [facility] 01-09-2023 17:53-0400 Systolic blood pressure 166 mm[Hg] Dr. Shayna Malhotra Work Phone: [facility] 01-09-2023 17:15-0400 Body height 165.[address] Shayna Malhotra Work Phone: [facility] 01-09-2023 17:15-0400 Body mass index (BMI) [Ratio] 51 kg/m2 Dr. Shayna Malhotra Work Phone: [facility] 01-09-2023 17:15-0400 Body weight 139.[address] Shayna Malhotra Work Phone: [facility] 11-24-2022 13:42-0400 Body mass index (BMI) [Ratio] 51.4 kg/m2 Dr. Shayna Malhotra Work Phone: [facility] 11-24-2022 13:42-0400 Body temperature 97.9 [degF] Dr. Shayna Malhotra Work Phone: [facility] 11-24-2022 13:42-0400 Body weight 140.[address] Shayna Malhotra Work Phone: [facility] 11-24-2022 13:42-0400 Diastolic blood pressure 67 mm[Hg] Dr. Shayna Malhotra Work Phone: [facility] 11-24-2022 13:42-0400 Heart rate 112 /min Dr. Shayna Malhotra Work Phone: [facility] 11-24-2022 13:42-0400 Respiratory rate 20 /min Dr. Shayna Malhotra Work Phone: [facility] 11-24-2022 13:42-0400 SaO2% (BldA) [Mass fraction] 92 % Dr. Shayna Malhotra Work Phone: [facility] 11-24-2022 13:42-0400 Systolic blood pressure 125 mm[Hg] Dr. Shayna Malhotra Work Phone: [facility] 05-06-2022 16:07-0500 Body height 165.[address] Shayna Malhotra Work Phone: [facility] 05-06-2022 16:07-0500 Body mass index (BMI) [Ratio] 49.4 kg/m2 Dr. Shayna Malhotra Work Phone: [facility] 05-06-2022 16:07-0500 Body temperature 98.6 [degF] Dr. Shayna Malhotra Work Phone: [facility] 05-06-2022 16:07-0500 Body weight 134.[address] Shayna Malhotra Work Phone: [facility] 05-06-2022 16:07-0500 Diastolic blood pressure 91 mm[Hg] Dr. Shayna Malhotra Work Phone: [facility] 05-06-2022 16:07-0500 Heart rate 118 /min Dr. Shayna Malhotra Work Phone: [facility] 05-06-2022 16:07-0500 Respiratory rate 18 /min Dr. Shayna Malhotra Work Phone: [facility] 05-06-2022 16:07-0500 SaO2% (BldA) [Mass fraction] 96 % Dr. Shayna Malhotra Work Phone: [facility] 05-06-2022 16:07-0500 Systolic blood pressure 167 mm[Hg] Dr. Shayna Malhotra Work Phone: [facility] 11-24-2021 16:06-0400 Heart rate 100 /min Dr. Shayna Malhotra Work Phone: [facility] Work Phone: 11-24-2021 16:04-0400 Body temperature 98.4 [degF] Dr. Shayna Malhotra Work Phone: [facility] Work Phone: 11-24-2021 16:04-0400 Diastolic blood pressure 82 mm[Hg] Dr. Shayna Malhotra Work Phone: [facility] Work Phone: 11-24-2021 16:04-0400 Respiratory rate 17 /min Dr. Shayna Malhotra Work Phone: [facility] Work Phone: 11-24-2021 16:04-0400 SaO2% (BldA) [Mass fraction] 95 % Dr. Shayna Malhotra Work Phone: [facility] Work Phone: 11-24-2021 16:04-0400 Systolic blood pressure 147 mm[Hg] Dr. Shayna Malhotra Work Phone: [facility] Work Phone: 11-24-2021 08:43-0400 Body temperature 98 [degF] Dr. Shayna Malhotra Work Phone: [facility] Work Phone: 11-24-2021 08:43-0400 Diastolic blood pressure 61 mm[Hg] Dr. Shayna Malhotra Work Phone: [facility] Work Phone: 11-24-2021 08:43-0400 Heart rate 94 /min Dr. Shayna Malhotra Work Phone: [facility] Work Phone: 11-24-2021 08:43-0400 Respiratory rate 15 /min Dr. Shayna Malhotra Work Phone: [facility] Work Phone: 11-24-2021 08:43-0400 SaO2% (BldA) [Mass fraction] 95 % Dr. Shayna Malhotra Work Phone: [facility] Work Phone: 11-24-2021 08:43-0400 Systolic blood pressure 113 mm[Hg] Dr. Shayna Malhotra Work Phone: [facility] Work Phone: 11-24-2021 06:00-0400 Body weight 141.[address] Shayna Malhotra Work Phone: [facility] Work Phone: 11-23-2021 09:21-0400 Body height 165.[address] Shayna Malhotra Work Phone: [facility] Work Phone: 11-22-2021 17:49-0400 Body height 165.[address] Shayna Malhotra Work Phone: [facility] Work Phone: 11-22-2021 17:49-0400 Body mass index (BMI) [Ratio] 51.5 kg/m2 Dr. Shayna Malhotra Work Phone: [facility] Work Phone: 11-22-2021 17:49-0400 Body weight 140.[address] Shayna Malhotra Work Phone: [facility] Work Phone: 11-22-2021 17:05-0400 Body temperature 98.9 [degF] Dr. Shayna Malhotra Work Phone: [facility] Work Phone: 11-22-2021 17:05-0400 Diastolic blood pressure 78 mm[Hg] Dr. Shayna Malhotra Work Phone: [facility] Work Phone: 11-22-2021 17:05-0400 Heart rate 120 /min Dr. Shayna Malhotra Work Phone: [facility] Work Phone: 11-22-2021 17:05-0400 Respiratory rate 28 /min Dr. Shayna Malhotra Work Phone: [facility] Work Phone: 11-22-2021 17:05-0400 SaO2% (BldA) [Mass fraction] 96 % Dr. Shayna Malhotra Work Phone: [facility] Work Phone: 11-22-2021 17:05-0400 Systolic blood pressure 119 mm[Hg] Dr. Shayna Malhotra Work Phone: [facility] Work Phone: 10-02-2021 12:46-0400 Body height 165.1 cm Jennifer Cuevas MD Work Phone: [facility] 10-02-2021 12:46-0400 Body temperature 97.39 [degF] Jennifer Cuevas MD Work Phone: [facility] 10-02-2021 12:46-0400 Body weight 136.53 kg Jennifer Cuevas MD Work Phone: [facility] 10-02-2021 12:46-0400 Diastolic blood pressure 85 mm[Hg] Jennifer Cuevas MD Work Phone: [facility] 10-02-2021 12:46-0400 Heart rate 103 /min Jennifer Cuevas MD Work Phone: [facility] 10-02-2021 12:46-0400 Respiratory rate 20 /min Jennifer Cuevas MD Work Phone: [facility] 10-02-2021 12:46-0400 SaO2% (BldA) [Mass fraction] 98 % Jennifer Cuevas MD Work Phone: [facility] 10-02-2021 12:46-0400 Systolic blood pressure 152 mm[Hg] Jennifer Cuevas MD Work Phone: [facility] 09-22-2021 09:30-0400 Body temperature 98.4 [degF] Dr. Shayna Malhotra Work Phone: [facility] Work Phone: 09-22-2021 09:30-0400 Diastolic blood pressure 87 mm[Hg] Dr. Shayna Malhotra Work Phone: [facility] Work Phone: 09-22-2021 09:30-0400 Heart rate 85 /min Dr. Shayna Malhotra Work Phone: [facility] Work Phone: 09-22-2021 09:30-0400 Respiratory rate 17 /min Dr. Shayna Malhotra Work Phone: [facility] Work Phone: 09-22-2021 09:30-0400 SaO2% (BldA) [Mass fraction] 94 % Dr. Shayna Malhotra Work Phone: [facility] Work Phone: 09-22-2021 09:30-0400 Systolic blood pressure 151 mm[Hg] Dr. Shayna Malhotra Work Phone: [facility] Work Phone: 09-20-2021 13:57-0400 Body height 166.[address] Shayna Malhotra Work Phone: [facility] Work Phone: 09-20-2021 13:57-0400 Body weight 137.[address] Shayna Malhotra Work Phone: [facility] Work Phone: 09-20-2021 12:38-0400 Body mass index (BMI) [Ratio] 49.6 kg/m2 Dr. Shayna Malhotra Work Phone: [facility] Work Phone: 09-20-2021 12:06-0400 Body temperature 98 [degF] Dr. Shayna Malhotra Work Phone: [facility] Work Phone: 09-20-2021 12:06-0400 Diastolic blood pressure 71 mm[Hg] Dr. Shayna Malhotra Work Phone: [facility] Work Phone: 09-20-2021 12:06-0400 Heart rate 101 /min Dr. Shayna Malhotra Work Phone: [facility] Work Phone: 09-20-2021 12:06-0400 Respiratory rate 16 /min Dr. Shayna Malhotra Work Phone: [facility] Work Phone: 09-20-2021 12:06-0400 SaO2% (BldA) [Mass fraction] 97 % Dr. Shayna Malhotra Work Phone: [facility] Work Phone: 09-20-2021 12:06-0400 Systolic blood pressure 163 mm[Hg] Dr. Shayna Malhotra Work Phone: [facility] Work Phone: 09-20-2021 07:17-0400 Body height 165.[address] Shayna Malhotra Work Phone: [facility] Work Phone: 09-20-2021 07:17-0400 Body mass index (BMI) [Ratio] 52.5 kg/m2 Dr. Shayna Malhotra Work Phone: [facility] Work Phone: 09-20-2021 07:17-0400 Body weight 143.[address] Shayna Malhotra Work Phone: [facility] Work Phone: 09-01-2021 15:00-0400 Body height 165.1 cm Pst 1 [facility] 09-01-2021 15:00-0400 Body temperature 97.5 [degF] Pst 1 [facility] 09-01-2021 15:00-0400 Body weight 128.82 kg Pst 1 [facility] 09-01-2021 15:00-0400 Diastolic blood pressure 71 mm[Hg] Pst 1 [facility] 09-01-2021 15:00-0400 Heart rate 97 /min Pst 1 [facility] 09-01-2021 15:00-0400 Respiratory rate 18 /min Pst 1 [facility] 09-01-2021 15:00-0400 SaO2% (BldA) [Mass fraction] 97 % Pst 1 [facility] 09-01-2021 15:00-0400 Systolic blood pressure 127 mm[Hg] Pst 1 [facility] 08-11-2021 09:26-0500 Body mass index (BMI) [Ratio] 50.9 kg/m2 Dr. Shayna Malhotra Work Phone: [facility] Work Phone: 08-11-2021 09:26-0500 Body temperature 98.2 [degF] Dr. Shayna Malhotra Work Phone: [facility] Work Phone: 08-11-2021 09:26-0500 Body weight 138.[address] Shayna Malhotra Work Phone: [facility] Work Phone: 08-11-2021 09:26-0500 Diastolic blood pressure 83 mm[Hg] Dr. Shayna Malhotra Work Phone: [facility] Work Phone: 08-11-2021 09:26-0500 Heart rate 114 /min Dr. Shayna Malhotra Work Phone: [facility] Work Phone: 08-11-2021 09:26-0500 Respiratory rate 16 /min Dr. Shayna Malhotra Work Phone: [facility] Work Phone: 08-11-2021 09:26-0500 SaO2% (BldA) [Mass fraction] 96 % Dr. Shayna Malhotra Work Phone: [facility] Work Phone: 08-11-2021 09:26-0500 Systolic blood pressure 151 mm[Hg] Dr. Shayna Malhotra Work Phone: [facility] Work Phone: 08-11-2021 08:26-0500 Body mass index (BMI) [Ratio] 50.9 kg/m2 Dr. Shayna Malhotra Work Phone: [facility] Work Phone: 08-11-2021 08:26-0500 Body temperature 98.2 [degF] Dr. Shayna Malhotra Work Phone: [facility] Work Phone: 08-11-2021 08:26-0500 Body weight 138.[address] Shayna Malhotra Work Phone: [facility] Work Phone: 08-11-2021 08:26-0500 Diastolic blood pressure 83 mm[Hg] Dr. Shayna Malhotra Work Phone: [facility] Work Phone: 08-11-2021 08:26-0500 Heart rate 114 /min Dr. Shayna Malhotra Work Phone: [facility] Work Phone: 08-11-2021 08:26-0500 Respiratory rate 16 /min Dr. Shayna Malhotra Work Phone: [facility] Work Phone: 08-11-2021 08:26-0500 SaO2% (BldA) [Mass fraction] 96 % Dr. Shayna Malhotra Work Phone: [facility] Work Phone: 08-11-2021 08:26-0500 Systolic blood pressure 151 mm[Hg] Dr. Shayna Malhotra Work Phone: [facility] Work Phone: 07-30-2021 14:36-0500 Body mass index (BMI) [Ratio] 50.8 kg/m2 Dr. Shayna Malhotra Work Phone: [facility] Work Phone: 07-30-2021 14:36-0500 Body temperature 98.6 [degF] Dr. Shayna Malhotra Work Phone: [facility] Work Phone: 07-30-2021 14:36-0500 Body weight 138.[address] Shayna Malhotra Work Phone: [facility] Work Phone: 07-30-2021 14:36-0500 Heart rate 106 /min Dr. Shayna Malhotra Work Phone: [facility] Work Phone: 07-30-2021 14:36-0500 Respiratory rate 15 /min Dr. Shayna Malhotra Work Phone: [facility] Work Phone: 07-30-2021 13:36-0500 Body mass index (BMI) [Ratio] 50.8 kg/m2 Dr. Shayna Malhotra Work Phone: [facility] Work Phone: 07-30-2021 13:36-0500 Body temperature 98.6 [degF] Dr. Shayna Malhotra Work Phone: [facility] Work Phone: 07-30-2021 13:36-0500 Body weight 138.[address] Shayna Malhotra Work Phone: [facility] Work Phone: 07-30-2021 13:36-0500 Heart rate 106 /min Dr. Shayna Malhotra Work Phone: [facility] Work Phone: 07-30-2021 13:36-0500 Respiratory rate 15 /min Dr. Shayna Malhotra Work Phone: [facility] Work Phone: 07-26-2021 12:28-0500 Diastolic blood pressure 72 mm[Hg] Dr. Shayna Malhotra Work Phone: [facility] Work Phone: 07-26-2021 12:28-0500 Heart rate 98 /min Dr. Shayna Malhotra Work Phone: [facility] Work Phone: 07-26-2021 12:28-0500 Respiratory rate 23 /min Dr. Shayna Malhotra Work Phone: [facility] Work Phone: 07-26-2021 12:28-0500 SaO2% (BldA) [Mass fraction] 99 % Dr. Shayna Malhotra Work Phone: [facility] Work Phone: 07-26-2021 12:28-0500 Systolic blood pressure 140 mm[Hg] Dr. Shayna Malhotra Work Phone: [facility] Work Phone: 07-26-2021 11:28-0500 Diastolic blood pressure 72 mm[Hg] Dr. Shayna Malhotra Work Phone: [facility] Work Phone: 07-26-2021 11:28-0500 Heart rate 98 /min Dr. Shayna Malhotra Work Phone: [facility] Work Phone: 07-26-2021 11:28-0500 Respiratory rate 23 /min Dr. Shayna Malhotra Work Phone: [facility] Work Phone: 07-26-2021 11:28-0500 SaO2% (BldA) [Mass fraction] 99 % Dr. Shayna Malhotra Work Phone: [facility] Work Phone: 07-26-2021 11:28-0500 Systolic blood pressure 140 mm[Hg] Dr. Shayna Malhotra Work Phone: [facility] Work Phone: 07-26-2021 09:16-0500 Body mass index (BMI) [Ratio] 52.2 kg/m2 Dr. Shayna Malhotra Work Phone: [facility] Work Phone: 07-26-2021 09:16-0500 Body temperature 97.2 [degF] Dr. Shayna Malhotra Work Phone: [facility] Work Phone: 07-26-2021 09:16-0500 Body weight 142.[address] Shayna Malhotra Work Phone: [facility] Work Phone: 07-26-2021 08:16-0500 Body mass index (BMI) [Ratio] 52.2 kg/m2 Dr. Shayna Malhotra Work Phone: [facility] Work Phone: 07-26-2021 08:16-0500 Body temperature 97.2 [degF] Dr. Shayna Malhotra Work Phone: [facility] Work Phone: 07-26-2021 08:16-0500 Body weight 142.[address] Shayna Malhotra Work Phone: [facility] Work Phone: 10-26-2016 15:36-0400 BMI (Body Mass Index) 41.6 kg/m2 Sena Cox NP [facility] Work Phone: 10-26-2016 15:36-0400 BP Diastolic 97 mm[Hg] Sena Cox NP [facility] Work Phone: 10-26-2016 15:36-0400 BP Systolic 155 mm[Hg] Sena Cox NP [facility] Work Phone: 10-26-2016 15:36-0400 BSA (Body Surface Area) 2.12 m2 Sena Cox NP [facility] Work Phone: 10-26-2016 15:36-0400 Height 162.56 cm Sena Cox NP [facility] Work Phone: 10-26-2016 15:36-0400 Pulse (Heart Rate) 101 /min [facility] Work Phone: 10-26-2016 15:36-0400 Pulse Oximetry 97 % Sena Cox NP [facility] Work Phone: 10-26-2016 15:36-0400 Respiratory Rate 16 /min Sena Cox [facility] Work Phone: 10-26-2016 15:36-0400 Weight 109.95 kg Sena Cox [facility] Work Phone: Encounters Encounter Date Encounter Type Care Provider Facility Start: 04-16-2025 ambulatory Shayna Marya Facility :[facility] Start: 04-01-2025 ambulatory Shaynadesi Malhotra Facility :[facility] Start: 03-20-2025 ambulatory Shaynadesi Malhotra Facility :[facility] Start: 01-21-2025 ambulatory Shaynadesi Malhotra Facility :[facility] Start: 01-21-[address] Malathi Tomas MD -[facility] Work Phone: Start: 12-04-2024 End: 12-04-[address] Shayna Malhotra MD Work Phone: -[facility] Start: 12-04-2024 End: 12-04-[address] Malathi Tomas MD -[facility] Start: 12-04-2024 End: 12-04-2024 ambulatory Shaynadesi Malhotra Facility:[facility] Start: 11-26-2024 ambulatory Shaynadesi Malhotra Facility :[facility] Start: 11-26-[address] Malathi Tomas MD -[facility] Start: 11-07-2024 ambulatory Shaynadesi Malhotra Facility :[facility] Start: 11-01-2024 ambulatory Shayna Malhotra Facility :[facility] Start: 10-30-2024 ambulatory Shaynadesi Malhotra Facility :[facility] Start: 10-25-2024 ambulatory Shaynadesi Malhotra Facility :[facility] Start: 10-11-2024 End: 10-11-2024 ambulatory Shea Lele Facility:[facility] Start: 10-10-2024 Non-patient / Non-visit Dr. Tyrell Page MD -[facility] Work Phone: Start: 10-09-2024 ambulatory Missael Whitfield ty:[facility] Start: 10-09-2024 End: 05-08-2025 Evaluation and management of inpatient Dr. Missael Hernandez DO -[facility] Work Phone: Start: 10-09-2024 Registered Referred Shayna Resendez [facility] Work Phone: Start: 10-08-2024 End: 10-09-2024 ambulatory Shayna ROSA Facility:[facility] Start: 07-09-2024 ambulatory Shayna ROSA Faci lity:[facility] Start: 07-09-2024 Registered Referred Shayna Resendez [facility] Work Phone: Start: 07-04-2024 End: 07-04-[address] Shayna Malhotra MD -[facility] Work Phone: Start: 07-04-2024 End: 07-04-2024 ambulatory Shayna Malhotra Facility:[facility] Start: 06-22-2024 ambulatory [facility] Marya Facility :[facility] Start: 05-28-2024 End: 05-28-2024 ambulatory [facility] Facility:[facility] Start: 07-08-2023 End: 07-08-2023 ambulatory [facility] Work Phone: Start: 07-08-2023 End: 07-08-[address] [facility] Work Phone: Start: 04-08-2023 End: 04-08-[address] [facility] Work Phone: Start: 01-09-2023 End: 01-09-2023 Emergency department patient visit Dr. Shayna Malhotra Work Phone: [facility] Work Phone: Start: 11-24-2022 End: 11-24-[address] Shayna Malhotra Work Phone: [facility] Work Phone: Start: 10-13-2022 End: 10-13-[address] Shayna Malhotra Work Phone: [facility] Work Phone: Start: 08-12-2022 End: 08-12-[address] Shayna Malhotra Work Phone: [facility] Work Phone: Start: 08-12-2022 End: 08-12-[address] Shayna Malhotra Work Phone: [facility] Start: 07-13-2022 End: 07-13-[address] Shayna Malhotra Work Phone: [facility] Work Phone: Start: 07-13-2022 End: 07-13-[address] Shayna Malhotra Work Phone: [facility] Start: 06-08-2022 End: 06-08-[address] Shayna Malhotra Work Phone: [facility] Work Phone: Start: 06-08-2022 End: 06-08-[address] Shayna Malhotra Work Phone: [facility] [place] [facility] Start: 05-06-2022 End: 05-06-[address] Shayna Malhotra Work Phone: [facility] Start: 04-13-2022 End: 04-13-2022 ambulatory [facility] Work Phone: Start: 04-13-2022 End: 04-13-[address] [facility] Start: 01-01-2022 End: 01-01-[address] Shayna Malhotra Work Phone: [place] [address] Start: 12-11-[address] Shayna Malhotra Work Phone: [facility] 300 Start: 12-01-[address] Shayna Malhotra Work Phone: [facility] 100/200 Start: 11-27-[address] Shayna Malhotra Work Phone: [facility] 100/200 Start: 11-24-2021 Non-patient / Non-visit Dr. Maryanne Malhotra Work Phone: [facility] Start: 11-23-2021 Non-patient / Non-visit Dr. Maryanne Malhotra Work Phone: [facility] Start: 11-23-2021 End: 11-24-2021 Non-patient / Non-visit Dr. Shayna Malhotra Work Phone: [facility] Start: 11-22-2021 Non-patient / Non-visit Dr. Maryanne Malhotra Work Phone: [facility] Start: 11-22-2021 End: 11-24-2021 Evaluation and management of inpatient Dr. Shayna Malhotra Work Phone: [facility] Start: 10-27-2021 End: 10-27-[address] Shayna Malhotra Work Phone: [facility] Start: 10-13-2021 End: 10-13-[address] Shayna Malhotra Work Phone: [facility] Start: 10-13-[address] Shayna Malhotra Work Phone: [facility] Start: 10-02-2021 End: 10-02-2021 ambulatory Jennifer Cuevas MD Work Phone: [facility] Gynecology Oncology Comment on above: Endometrial cancer ( HCC) (Primary Dx) Start: 10-02-2021 End: 10-02-2021 Patient encounter procedure Jennifer Cuevas MD Work Phone: [facility] Start: 09-22-2021 Non-patient / Non-visit Dr. Maryanne Malhotra Work Phone: [facility] Start: 09-21-2021 Telephone encounter Jennifer prasad MD Work Phone: [facility] Gynecology Oncology Comment on above: Appointment Cancelle d Start: 09-21-2021 Non-patient / Non-visit Dr. Maryanne Malhotra Work Phone: [facility] Start: 09-20-2021 Non-patient / Non-visit Dr. Maryanne Malhotra Work Phone: [facility] Start: 09-20-2021 End: 09-22-2021 Evaluation and management of inpatient Dr. Shayna Malhotra Work Phone: [facility] 3 Start: 09-10-2021 Telephone encounter Taniya Balderas APRN.CNP Work Phone: [facility] Gynecology Oncology Comment on above: Results Start: 09-10-2021 End: 09-10-[address] Shayna Malhotra Work Phone: [facility] Start: 09-10-[address] Shayna Malhotra Work Phone: [facility] Start: 09-09-2021 Telephone encounter Jennifer prasad MD Work Phone: [facility] Gynecology Oncology Comment on above: Patient Update Start: 09-01-2021 End: 09-01-2021 Admission to [address] Start: 09-01-2021 End: 09-01-2021 ambulatory Pst [...] encounter procedure Dr. Shayna Malhotra [facility] Start: 08-07-2021 End: 08-07-[address] Shayna Malhotra [facility] Phone: [facility] Start: 07-30-[address] Shayna Malhotra Work Phone: [facility] On[facility] Start: 07-30-2021 End: 07-30-[address] Shayna Malhotra Work Phone: [facility] Start: 07-26-2021 End: 07-26-2021 Emergency department patient visit Dr. Shayna Malhotra Work Phone: [facility]-Emergency Department Start: 07-14-[address] Shayna Malhotra Work Phone: [facility] Start: 07-08-[address] Shayna Malhotra Work Phone: [facility] Start: 06-12-[address] Shayna Malhotra Work Phone: [facility] Procedures Date Procedure [...] Start: 07-09-2024 Measurement of renal function Dr. Shyana Malhotra MD Work Phone: Comment on above: [...] men Type: BLOOD SPECIMEN Ordering Facility: [facility] Address: [address] [place], [place] [address] Performed By: #### T [id number] #### [facility] CLIA [id number] [address] Start: 08-11-2021 Plain chest X-ray Dr. [...] Activity Detail Author Start: 10-11-2024 Patient discharge [facility] Start: 10-10-2024 [facility] Start: 10-10-2024 Consultation [facility] Start: 10-10-2024 Patient referral to dietitian [facility] Start: 10-09-2024 Following clinical pathway protocol [facility] Start: 10-09-2024 Assessment of risk o f venous thromboembolism [facility] Start: 10-09-2024 Care regimes management [facility] Start: 10-09-2024 Incentive spirometry [facility] Start: 10-09-2024 Insertion of cathete r into peripheral vein [facility] Start: 10-09-2024 Measuring intake and output [facility] Start: 10-09-2024 Notification of physician [facility] Start: 10-09-2024 Oxygen therapy [facility] Start: 10-09-2024 Providing care accor ding to standard [facility] Start: 10-09-2024 Provision of activit y privileges [facility] Start: 10-09-2024 Referral to occupati onal therapist [facility] Start: 10-09-2024 Referral to service [facility] Start: 10-09-2024 Seizure precautions [facility] Start: 10-09-2024 End: 10-09-2024 [facility] Start: 10-09-2024 MR Lower extremity W O contrast [facility] Start: 10-09-2024 MRI of lower extremity Extremi ty Lower without Contra [facility] Start: 10-09-2024 Verification routine [facility] Start: 10-09-2024 Admission procedure [facility] Start: 10-09-2024 Hospital admission, emergency, from emergency room, medical nature [facility] Start: 10-09-2024 End: 10-10-2024 [facility] Start: 10-09-2024 Thyroid stimulating hormone measurement [facility] Start: 10-09-2024 Consultation [facility] Start: 10-09-2024 Bacteria identified in Urine by Culture Urine Culture [facility] Start: 10-09-[address] [facility] Start: 10-09-2024 Consultation [facility] Start: 10-09-2024 Patient referral to dietitian [facility] Start: 09-07-2024 DIABETES SCREEN DIABETES SCREEN [facility] Start: 07-04-2024 Patient referral [facility] Work Phone: Start: 11-24-2022 Patient referral [facility] Work Phone: Start: 05-06-2022 Patient referral [facility] Work Phone: Start: 02-04-2022 Influenza vaccination INFLUENZ A (Season Ended) [facility] Start: 11-25-2021 [facility] Work Phone: Start: 11-24-2021 Patient discharge [facility] Work Phone: Start: 11-22-2021 Troponin I measurement [facility] Work Phone: Start: 11-22-2021 Verification routine [facility] Work Phone: Start: 11-22-2021 Patient referral to dietitian [facility] Work Phone: Start: 11-22-2021 Following clinical pathway protocol [facility] Work Phone: Start: 11-22-2021 Assessment of risk o f venous thromboembolism [facility] Work Phone: Start: 11-22-2021 Care regimes management [facility] Work Phone: Start: 11-22-2021 Catheterization of vein [facility] Work Phone: Start: 11-22-2021 Insertion of cathete r into peripheral vein [facility] Work Phone: Start: 11-22-2021 Measuring intake and output [facility] Work Phone: Start: 11-22-2021 Providing care accor ding to standard [facility] Work Phone: Start: 11-22-2021 Provision of activit y privileges [facility] Work Phone: Start: 11-22-2021 Referral to occupati onal therapist [facility] Work Phone: Start: 11-22-2021 Referral to service [facility] Work Phone: Start: 11-22-2021 [facility] Work Phone: Start: 11-22-2021 Viral nucleic acid assay [facility] Work Phone: Start: 11-22-2021 Admission procedure [facility] Work Phone: Start: 11-22-2021 [facility] Work Phone: Start: 11-22-2021 End: 11-23-2021 [facility] Work Phone: Start: 11-22-2021 End: 11-22-2021 Blood culture [facility] Work Phone: Start: 09-22-2021 Patient discharge [facility] Work Phone: Start: 09-20-2021 End: 09-21-2021 [facility] Work Phone: Start: 09-20-2021 Following clinical pathway protocol [facility] Work Phone: Start: 09-20-2021 Assessment of risk o f venous thromboembolism [facility] Work Phone: Start: 09-20-2021 Care regimes management [facility] Work Phone: Start: 09-20-2021 Elevation of affecte d extremity [facility] Work Phone: Start: 09-20-2021 Insertion of cathete r into peripheral vein [facility] Work Phone: Start: 09-20-2021 Notification of physician [facility] Work Phone: Start: 09-20-2021 Providing care accor ding to standard [facility] Work Phone: Start: 09-20-2021 Provision of activit y privileges [facility] Work Phone: Start: 09-20-2021 Referral to occupati onal therapist [facility] Work Phone: Start: 09-20-2021 Referral to service [facility] Work Phone: Start: 09-20-2021 Self-administration of medication [facility] Work Phone: Start: 09-20-2021 Admission procedure [facility] Work Phone: Start: 09-20-2021 Patient referral to dietitian [facility] Work Phone: Start: 09-01-2021 End: 11-01-2021 CBC panel - Blood by Automated count [facility] Work Phone: Comment on above: Expected: 09/01/2021 , Expires: 11/01/2021 Start: 09-01-2021 End: 11-01-2021 CONFIRM BLOOD TYPE [facility] Work Phone: Comment on above: Expected: 09/01/2021 , Expires: 11/01/2021 Start: 09-01-2021 End: 11-01-2021 TYPE AND SCREEN,30 DAY [facility] Work Phone: Comment on above: Expected: 09/01/2021 , Expires: 11/01/2021 Start: 07-26-2021 Referral to oncologist [facility] Work Phone: Start: 06-06-2021 ADVANCE DIRECTIVE DISCUSSION ADVANCE DIRECTIVE DISCUSSION [facility] Start: 02-09-2021 LIPID SCREEN LIPID SCREEN [facility] Start: 02-04-2021 Influenza vaccination INFLUENZA (#1) [facility] Start: 03-01-2019 DIABETES SCREEN DIABETES SCREEN [facility] Start: 2017 BONE DENSITY BONE DENSITY [facility] Start: 2017 PNEUMOVAX AGE 65 AND OVER WITH 5YR LOOKBACK (#1) PNEUMOVAX AGE 65 AND OVER WITH 5YR LOOKBACK (#1) [facility] Start: 02-09-2017 Adult depression screening assessment DEPRESSION SCREENING [facility] Start: 02-09-2017 Mammography MAMMOGRAM [facility] Start: 12-09-2016 End: 12-09-2016 Appointment [facility] Work Phone: Start: 10-26-2016 End: 10-26-2016 Appointment Appointment [facility] Work Phone: Start: 10-26-2016 End: 10-26-2016 Appointment Appointment [facility] Work Phone: Start: 10-26-2016 End: 11-01-2016 *CMP Complete Metabolic Panel *CMP Complete Metabolic Panel [facility] Work Phone: Start: 10-26-2016 End: 11-01-2016 *Microalbumin, Creatine Ratio, rand urine *Microalbumin, Creatine Ratio, rand urine [facility] Work Phone: Start: 10-26-2016 End: 11-01-2016 HbA1c *HgA1C [facility] Work Phone: Start: 10-26-2016 End: 11-01-2016 Lipid panel [AGGREGATE] *Lipid Profile [facility] Work Phone: Start: 09-05-2011 PNEUMOCOCCAL: 65+ (2 - PCV) PNEUMOCOCCAL: 65+ (2 - PCV) [facility] Start: 2002 SHINGRIX VACCINE (1 of 2) SHINGRIX VACCINE (1 of 2) [facility] Start: 1997 COLOGUARD (FIT-DNA) COLOGUARD (FIT-D NA) [facility] Start: 1997 Colonoscopy COLONOSCOPY [facility] Start: 1997 COLORECTAL CANCER SCREENING COLORECTAL CANCER SCREENING [facility] Start: [address] [facility] Start: 1997 FECAL OCCULT BLOOD FECAL OCCULT BLOO D [facility] Start: 1997 SIGMOIDOSCOPY SIGMOIDOSCOPY [facility] Start: 12-28-1971 SHINGRIX VACCINE (1 of 2) SHINGRIX VACCINE (1 of 2) [facility] Start: 12-28-1971 Urine microalbumin profile DTAP,TDAP,TD (1 - Tdap) [facility] Start: 1957 COVID-19 VACCINE (#1) COVID-19 VACCI NE (#1) [facility] Start: 1957 COVID-19 VACCINE (1) COVID-19 VACCIN E (1) [facility] Amphetamines [Presen ce] in Urine by Screen method >1000 ng/mL [facility] Bacteria identified in Blood by Culture Blood Culture [facility] Work Phone: Bacteria identified in Urine by Culture Urine Culture [facility] Work Phone: Benzodiazepine measurement, urine [facility] Blood culture [facility] Work Phone: C reactive protein [Mass/volume] in Serum or Plasma [facility] Cancer Ag 125 [Units/volume] in Serum or Plasma [facility] Work Phone: Cocaine measurement, urine [facility] Erythrocyte sedimentation rate [facility] Ethanol [Mass/volume ] in Serum or Plasma [facility] fentaNYL [Presence] in Urine by Screen method [facility] Folate [Moles/volume ] in Serum or Plasma [facility] Hemoglobin A1c/Hemoglobin.total in Blood [facility] Magnesium measurement [facility] Methadone measuremen t, urine [facility] Patient Education [facility] docrinology Work Phone: Patient referral [facility] Work Phone: Phencyclidine [Prese nce] in Urine [facility] Troponin I measurement [facility] Work Phone: Urine cannabinoid measurement [facility] Urine culture [facility] Urine opiate measurement [facility] Immunizations Immunization Date Immunization Notes Care Provider Arlin sen 03-30-2016 influenza, injectabl e, quadrivalent, preservative free [facility] 03-30-2016 influenza, seasonal, injectable Dr. Shayna Malhotra Work Phone: [facility] 10-31-2012 influenza, injectabl e, quadrivalent, preservative free [facility] 10-31-2012 influenza, seasonal, injectable Dr. Shayna Malhotra Work Phone: [facility] 06-06-2012 pneumococcal polysaccharide vaccine, [address] Shayna Malhotra Work Phone: [facility] 09-04-2010 pneumococcal polysaccharide vaccine, [address] [facility] Work Phone: Payers Date Payer Category Payer Self-pay [id number] 2021 Medicare [id number] [id number] 2016 Unknown [id number] 2016 Unknown [id number] Unknown [id number] 2.16.8 [id number] Unknown [id number] 2.16.8 [id number] Unknown [id number] 2.16.8 40.1.388013.3.579.2.462 Unknown [id number] 2.16.8 40.1.903264.3.579.2.462 Unknown [id number] 2.16.8 40.1.034737.3.579.2.462 Unknown [id number] 2.16.8 40.1.375955.3.579.2.462 Unknown [id number] 2.16.8 40.1.093156.3.579.2.462 Unknown [id number] 2.16.8 40.1.222223.3.579.2.462 Unknown [id number] 2.16.8 40.1.336290.3.579.2.462 Unknown [id number] 2.16.8 40.1.697901.3.579.2.462 Unknown [id number] 2.16.8 40.1.750365.3.579.2.462 Unknown [id number] 2.16.8 40.1.863938.3.579.2.462 Unknown [id number] 2.16.8 40.1.093536.3.579.2.462 Unknown [id number] 2.16.8 40.1.483210.3.579.2.462 Unknown [id number] 2.16.8 40.1.336191.3.579.2.462 Unknown [id number] 2.16.8 40.1.771836.3.579.2.462 Unknown [id number] 2.16.8 40.1.081127.3.579.2.462 Unknown [id number] 2.16.8 40.1.715416.3.579.2.462 Unknown [id number] 2.16.8 40.1.750098.3.579.2.462 Unknown [id number] 2.16.8 [id number] Unknown [id number] 2.16.8 [id number] Social History Date Type Detail Facility Start: 07-29-2021 End: 10-09-2024 Tobacco smoking status NEIS Ex-smoker [facility] History of tobacco use Cigarette Smoker [facility] Start: 07-29-2021 Cigarettes smoked current (pack per day) - Reported 0.5 [facility] Start: 07-29-2021 Tobacco use and exposure Smokeless tobacco non-user [facility] Start: 09-01-2021 End: 10-02-2021 Alcohol intake Current non-drinker of alcohol (finding) [facility] Start: 1950 Sex Assigned At Not on file [facility] Start: 08-22-2021 End: 10-02-2021 Exposure to SARS-CoV-2 (event) Not sure [facility] Start: 09-20-2021 End: 01-09-2023 Tobacco smoking status NEIS Unknown if ever smoked [facility] Start: 08-02-2017 None [facility] Start: 08-02-2017 Alone [facility] Start: 08-02-2017 Non-smoker [facility] Start: 1950 Sex Assigned At Female [facility] Start: 10-09-2024 Sex Female (finding) [facility] Sex Female [facility] Medical Equipment Procedure Code Equipment [...] Activity Abili ty With Assist of 2 [facility] Work Phone: 10-10-2024 Functional status Active Range of Motion [facility] Work Phone: 11-24-2021 Functional status Ambulates;Chair [facility] Work Phone: 09-22-2021 Functional status Ambulates [facility] Work Phone: 09-22-2021 Functional status Ambulates [facility] Work Phone: 09-21-2021 Functional status Tolerates Activity Well [facility] Work Phone: Mental Status Date Assessment Result Facility 10-11-2024 Cognitive function Voice/Name [facility] Work Phone: 10-10-2024 Cognitive function Cooperative;Anxious;Ta lkative [facility] Work Phone: 11-24-2021 Cognitive function Voice/Name [facility] Work Phone: 09-22-2021 Cognitive function Voice/Name [facility] Work Phone: 09-20-2021 Cognitive function Level Of Cons ciousness Awake;Alert;Appropriate;Follow s Commands;Drowsy [facility] Work Phone: Clinical Notes 07-29-2021 to 10-11-2024 Note Date & Type Note Facility 10-11-2024 Note [facility] Medical Records Department [address] [place] [address] Discharge Summary 10/11/24 1135 MR#: [id number] Acct: [id number] Name: VIDA NINA Rep #: [id number] : 1950 73 From: Tyrell Page MD PCP: Dr. Shayna Malhotra MD Status:DIS IN Location: MS3 [id number] Providers Date of Admission: 10/09/24 Date of [...] status: with other specified complication Diabetes mellitus chcf insulin use: with electrical controls technician use Qualified Code(s): E11.69 - Type 2 diabetes mellitus with other specified complication; Z79.4 - MCC (current) use of insulin Plan 73-year-old female [...] edema. No soft tissue gas. Will consult sweeper brush maker machine for further opinion. PT and OT and [...] 72.1 H, Lymph % (Auto) 16.3 L, [place] % (Auto) 8.3, Eos % (Auto) 2.5, Baso % (more content not included)... [facility] 10-10-2024 Progress note Note Date/Time October 10, 2024 4:49pm [facility] Medical Records Department [address] [place] [address] Progress Note - Hospitalist 10/10/24 0739 MR#: [id number] Acct: [id number] Name: VIDA NINA Rep #:[id number] : 1950 73 From: Tyrell Resendez PCP: Dr. Shayna Malhotra MD Status:ADM IN Location: [place] [address]-1 Reason for Visit Reason for Visit: Diagnoses Type 2 diabetes mellitus with other specified complication (10/09/24) Morbid (severe) obesity due to excess calories (10/09/24) Bipolar disorder, unspecified (10/09/24) Neuralgia and neuritis, unspecified (10/09/24) Acute cystitis with hematuria (10/09/24) Very low level of personal hygiene (10/09/24) Body mass index [BMI] 45.0-49.9, adult (10/09/24) Other specified health status (10/09/24) MCC (current) use of insulin (10/09/24) Objective Data [...] 72.1 H, Lymph % (Auto) 16.3 L, [place] % (Auto) 8.3, Eos % (Auto) 2.5, [...] Clarity Cloudy, Urine pH 5.0, Ur Specific [place] 1.020, Urine Protein 30 H, Urine Glucose [...] % (Auto) 65.4, Lymph % (Auto) 19.6, [place] % (Auto) 9.1, Eos % (Auto) 5.1 [...] arthritic changes. Soft tissue swelling. Reading Location: [facility] Lower Extremity CT 10/09/24 22:15 IMPRESSION: [...] Hernandez at 2:20 a.m. 10/10/2024 Reading Location: [id number] Physical Exam Narrative Seen and examined. Patient [...] status: with other specified complication Diabetes mellitus electrical controls technician insulin use: with electrical controls technician use Qualified Code(s): E11.69 - Type 2 diabetes mellitus with other specified complication; Z79.4 - MCC (current) use of insulin PLAN: Plan 73-year-old [...] edema. No soft tissue gas. Will consult sweeper brush maker machine for further opinion. PT and OT and [...] 72.1 H, Lymph % (Auto) 16.3 L, [place] % (Auto) 8.3, Eos % (Auto) 2.5, [...] Clarity Cloudy, Urine pH 5.0, Ur Specific [place] 1.020, Urine Protein 30 H, Urine Glucose [...] % (Auto) 65.4, Lymph % (Auto) 19.6, [place] % (Auto) 9.1, Eos % (Auto) 5.1 [...] 165 H Charges/Coding Visit Charges Inpatient E&M: 17855 Subs Hosp L2 10/10/24 1530 <Electronically signed [...] need inpatient psych unit facility transfer 10/10/24 1898<Electronically signed by Tyrell Page MD> Cosigner Signature (if applicable): cc: ~* Signed [facility] Work Phone: 1(577) 546-115405-07-2025 Progress note [facility] Medical Records Department [address] [place] [address] Progress Note - Hospitalist 10/10/24 0739 MR#: [id number] Acct: [id number] Name: VIDA NINA Rep #:[id number] : 1950 73 From: Tyrell Resendez PCP: Dr. 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 Soft tissue swelling. Reading Location: [facility] Lower Extremity CT 10/09/24 22:15 IMPRESSION: [...] Hernandez at 2:20 a.m. 10/10/2024 Reading Location: [id number] Physical Exam Narrative Seen and examined. Patient [...] status: with other specified complication Diabetes mellitus electrical controls technician insulin use: with chcf use Qualified Code(s): E11.69 - Type 2 diabetes mellitus with other specified complication; Z79.4 - hand flatwork finisher (current) use of insulin PLAN: Plan 73-year-old [...] edema. No soft tissue gas. Will consult sweeper brush maker machine for further opinion. PT and OT and [...] 72.1 H, Lymph % (Auto) 16.3 L, [place] % (Auto) 8.3, Eos % (Auto) 2.5, [...] Clarity Cloudy, Urine pH 5.0, Ur Specific [place] 1.020, Urine Protein 30 H, Urine Glucose [...] % (Auto) 65.4, Lymph % (Auto) 19.6, [place] % (Auto) 9.1, Eos % (Auto) 5.1 [...] 165 H Charges/Coding Visit Charges Inpatient E&M: 25771 Subs Hosp L2 10/10/24 1530 Cosigner Signature [...] Cosigner Signature (if applicable): cc: ~* Signed [facility]05-07-2025 History and physical note Author Missael Lomeli [facility] Note Date/Time October 10, 2024 6:53am [facility] Medical Records Department [address] [place] [address] H&P Exam - Hospitalist 10/09/242118 MR#: [id number] Acct: [id number] Name: VIDA NINA Rep #:[id number] : 1950 73 From: Missael Joiner DO PCP: Dr. Shayna Malhotra MD Status:ADM IN Location: [facility] - General General Date of Admission: [...] is currently residing in assisted living at [facility] presents to [facility] ER complaining of worsening Left heel [...] skin folds and extremely poor hygiene with PYROMETER TEMPERATURE REGULATOR having social work consulted and patient felt [...] to extend beyond 2 midnights. [facility] Medical History Obesity Anxiety Cancer Anxiety Diabetes [...] acetonide 0.1 % 1 applic topical Q12H CO N PRN Rash 09/20/21 Unknown History topical [...] D #0 grams 11/24/21 Unknown Rx powder ([facility]) quetiapine 100 mg tablet 300 mg [...] (Auto) 72.1 H, Lymph % (Auto) 16.3 L,[place] % (Auto) 8.3, Eos % (Auto) 2.5, [...] Clarity Cloudy, Urine pH 5.0, Ur Specific [place] 1.020, Urine Protein 30 H, Urine Glucose [...] changes. Soft tissue swelling. Reading Location: [facility] Imaging Services [address] [place] [address] Extremity Lower without Contra MR#: [id number] Acct: [id number] Name: VIDA NINA Rep #: [id number] : 1950 F 73 From: Saul Sanchez MD PCP: Dr. Shayna Malhotra MD Status: ADM IN Study: Extremity Lower without Contra Date of Exam: 10/09/24 Exam# [id number] Ordering Dr: Missael Hernandez DO PROCEDURE: EXTREMITY [...] Hernandez at 2:20 a.m. 10/10/2024 Reading Location: [id number] CC: Dr. Missael Hernandez, DO; Dr. Shayna Malhotra MD ~ Players Assistant: Signed Assessment & Plan Assessment/Plan (1) Acute cystitis with hematuria: (2) Neuropathic pain of foot: (3) Poor hygiene: (4) Unable to care for self: (5) Bipolar 1 disorder: (6) Morbid obesity with BMI of 45.0-49.9, adult: (7) DM2 (diabetes mellitus, type 2): QUALIFIERS: Diabetes mellitus complication status: with other specified complication Diabetes mellitus electrical controls technician insulin use: with electrical controls technician use Qualified Code(s): E11.69 - Type 2 diabetes mellitus with other specified complication; Z79.4 - hand flatwork finisher (current) use of insulin PLAN: Plan 1. Acute Cystitis; with microscopic hematuria in the setting of known frequent UTIs - Admit to general medical floor. Continue empiric IV ceftriaxone and await culture and sensitivity data. Give acetaminophen as needed for vtsc-dn-haozjsqt (level 1- 5/10) pain or fever. Give [...] 75 minutes. Charges/Coding Visit Charges Inpatient E&M: 12817 Init Hosp L3 10/10/24 0653 <Electronically signed by Missael Hernandez DO> Cosigner Signature (if applicable): CC: Dr. Missael Hernandez DO; Dr. Shayna Malhotra MD~ Signed [facility] Work Phone: 1(423) 810-159905-07-2025 History and physical note [facility] Medical Records Department [address] [place] [address] H&P Exam - Hospitalist 10/09/242118 MR#: [id number] Acct: [id number] Name: VIDA NINA Rep #:[id number] : 1950 73 From: Missael Joiner DO PCP: Dr. Shayna Malhotra MD Status:ADM IN Location: 3 [id number] [facility] - General General Date of Admission: [...] is currently residing in assisted living at [facility] presents to [facility] ER complaining of worsening Leftheel pain [...] skin folds and extremely poor hygiene with PYROMETER TEMPERATURE REGULATOR having social work consulted and patient felt [...] to extend beyond 2 midnights. [facility] Medical History Obesity Anxiety Cancer Anxiety Diabetes [...] acetonide 0.1 % 1 applic topical Q12H CO N PRN Rash 09/20/21 Unknown History topical [...] (Auto) 72.1 H, Lymph % (Auto) 16.3 L,[place] % (Auto) 8.3, Eos % (Auto) 2.5, [...] Clarity Cloudy, Urine pH 5.0, Ur Specific [place] 1.020, Urine Protein 30 H, Urine Glucose [...] changes. Soft tissue swelling. Reading Location: [facility] Imaging Services [address] [place] [address] Extremity Lower without Contra MR#: [id number] Acct: [id number] Name: VIDA NINA Rep #: [id number] : 1950 F 73 From: Saul Sanchez MD PCP: Dr. Shayna Malhotra MD Status: ADM IN Study: Extremity Lower without Contra Date of Exam: 10/09/24 Exam# [id number] Ordering Dr: Missael Hernandez DO PROCEDURE: EXTREMITY [...] Hernandez at 2:20 a.m. 10/10/2024 Reading Location: [facility] CC: Dr. Missael Hernandez DO; Dr. Shayna Malhotra MD ~ Players Assistant: Signed Assessment & Plan Assessment/Plan (1) Acute cystitis with hematuria: (2) Neuropathic pain of foot: (3) Poor hygiene: (4) Unable to care for self: (5) Bipolar 1 disorder: (6) Morbid obesity with BMI of 45.0-49.9, adult: (7) DM2 (diabetes mellitus, type 2): QUALIFIERS: Diabetes mellitus complication status: with other specified complication Diabetes mellitus chcf insulin use: with electrical controls technician use Qualified Code(s): E11.69 - Type 2 diabetes mellitus with other specified complication; Z79.4 - MCC (current) use of insulin PLAN: Plan 1. Acute Cystitis; with microscopic hematuria in the setting of known frequent UTIs - Admit to general medical floor. Continue empiric IV ceftriaxone and await culture and sensitivity data. Give acetaminophen as needed for anxw-ha-vcqghrup (level 1-5/10) pain or fever. Give oxycodone [...] 75 minutes. Charges/Coding Visit Charges Inpatient E&M: 99589 Init Hosp L3 10/10/24 0653 Cosigner Signature (if applicable): CC: Dr. Missael Hernandez DO; Dr. Shayna Malhotra MD~ Signed [facility]05-07-2025 Radiology Diagnostic study note [facility] Imaging Services [address] [place], [place] [address] Extremity Lower without Contra MR#: [id number] Acct: [id number] Name: VIDA NINA Rep #: [id number] : 1950 F 73 From: Daniel Sanchez MD PCP: Dr. Shayna Malhotra MD Status: ADM IN Study:Extremity Lower without Contra Date of Exam: 10/09/24 Exam# [id number] Ordering Dr: Missael Piña DO PROCEDURE: EXTREMITY [...] Hernandez at 2:20 a.m. 10/10/2024 Reading Location: [id number] CC: Dr. Missael Hernandez DO; Dr. Shayna Malhotra MD ~ Players Assistant: Signed [facility]05-06-2025 Discharge summary Author Dany Richardson [facility] Note Date/Time October 09, 2024 9:22pm [facility] Medical Records Department [address] [place] [address] Emergency Department Summary 10/09/24 MR#: [id number] Acct: [id number] Name: VIDA NINA Rep #:[id number] : 1950 73 From: Dany Richardson MD PCP: Dr. Shayna Malhotra MD Status:REG ER Location: ED HPI History of Present Illness Chief Complaint: Lower Extremity Injury Narrative Narrative: 73-year-old female states that she had pins placed in her left foot approximately 15 years ago [place] after breaking her heel. She is currentlyin [facility]. She states for the last 2 weeks she has been having increasing foot pain. She states that on Tuesday, probably of the last week, she had x-raysobtained at the [facility]. She went and saw Dr. Shayna Malhotra on Tuesday, but he did not have the x-ray results. She states that she is having a lot of pain in her left heel that is worse with weightbearing and walking and palpation. She states that it feels as if she is having a baby out of her left heel. [facility] Medical History Obesity Anxiety Cancer Anxiety Diabetes [...] acetonide 0.1 % 1 applic topical Q12H CO N PRN Rash 09/20/21 Unknown History topical [...] D #0 grams 11/24/21 Unknown Rx powder ([facility]) quetiapine 100 mg tablet 300 mg [...] nonspecific foot pain. She was given 1 [place] for analgesia here, and x- rays were [...] plan was to discharge her back to [facility], however I was approached by the [...] 72.1 H Lymph % (Auto) 16.3 L [place] % (Auto) 8.3 Eos % (Auto) 2.5 [...] Clarity Cloudy Urine pH 5.0 Ur Specific [place] 1.020 Urine Protein 30 H Urine Glucose [...] self, UTI (urinary tract infection) Disposition Disposition: [facility] What to do if you have Problems For any increased pain, shortness of breath, bleeding, nausea or vomiting, chestpain, or any unexpected problems, contact your Primary Care Provider. Call [facility] ([phone]) or report to the closest Emergency Room. Call 911 if necessary. 10/09/242121 <Electronically signed by Dany Richardson MD> Cosigner Signature (if applicable): CC: Dr. Shayna Malhotra MD ~ Signed [facility] Work Phone: 1(537) 816-454305-06-2025 Discharge summary [facility] Medical Records Department [address] [place] [address] Emergency Department Summary 10/09/24 MR#: [id number] Acct: [id number] Name: VIDA NINA Rep #:[id number] : 1950 73 From: Dany Richardson MD PCP: Dr. Shayna Malhotra MD Status:[facility] ER Location: ED HPI History of Present Illness Chief Complaint: Lower Extremity Injury Narrative Narrative: 73-year-old female states that she had pins placed in her left foot approximately 15 years ago [place] after breaking her heel. She is currentlyin [facility]. She states for the last 2 weeks she has been having increasing foot pain. She states that on Tuesday, probably of the last week, she had x-raysobtained at the [facility]. She went and saw Dr. Shayna Malhotra on Tuesday, but he did not have thex-ray results. She states that she is having a lot of pain in her left heel that is worse with weightbearing and walking and palpation. She states that it feels as if she is having a baby out of her left heel. [facility] Medical History Obesity Anxiety Cancer Anxiety Diabetes [...] acetonide 0.1 % 1 applic topical Q12H CO N PRN Rash 09/20/21 Unknown History topical [...] D #0 grams 11/24/21 Unknown Rx powder ([facility]) quetiapine 100 mg tablet 300 mg [...] nonspecific foot pain. She was given 1 [place] for analgesia here, and x-rays were obtained of the left footin 3 views. On my independent interpretation of her x-rays, there are postsurgical changes including hardware,but no evidence of a periprosthetic fracture, no noted loosening of hardware. There are arthritic changes as well. I reviewed the radiology report which confirms my independent interpretation. Initially my plan was to discharge her back to [facility], however I was approached by the [...] 72.1 H Lymph % (Auto) 16.3 L [place] % (Auto) 8.3 Eos % (Auto) 2.5 [...] Clarity Cloudy Urine pH 5.0 Ur Specific Oak[place] 1.020 Urine Protein 30 H Urine Glucose [...] tract infection) Disposition Disposition: [facility] What to do if you have Problems For any increased pain, shortness of breath, bleeding, nausea or vomiting, chestpain, or any unexpected problems, contact your Primary Care Provider. Call [facility] ([phone]) or report tothe closest Emergency Room. Call 911 if necessary. 10/09/242121 Cosigner Signature (if applicable): CC: Dr. Shayna Malhotra MD ~ Signed [facility]05-06-2025 Radiology Diagnostic study note [facility] Imaging Services [address] [place] [address] Foot min 3 Views MR#: [id number] Acct: [id number] Name: VIDA NINA Rep #: [id number] : 1950 F 73 From: Katarina Jiménez MD PCP: Dr. Shayna Malhotra MD Status: REG ER Study:Foot min 3 Views Date of Exam: 11/28 Exam# [id number] Ordering Dr: Dany Richardson MD EXAM: LEFT [...] Richardson MD; Dr. Shayna Malhotra MD ~ Players Assistant: Signed [facility]01-29-2025 Evaluation note* Diagnosis Onset Date Resolution [...] 2) chronic October 09, 2024 9: 56pm [facility] Work Phone: 1(794) 153-622104-29-2022 NoteHNO ID: [id number] Author: Jennifer Cuevas MD Service: ? Author Type: Physician Type: Progress Notes Filed: 12/01/2021 8:04 AM Note Text: Gynecologic Oncology [facility] Follow up visit Date of service: 10/02/2021 PROBLEM/CC: Vida Nina presents for a post-op visit. SURGICAL PATHOLOGY [[id number]] Collected: 09/07/21 1104 Order Status: Completed Specimen: Tissue from UTERUS, CERVIX, BILATERAL FALLOPIAN TUBES AND BILATERAL OVARIES Updated: 09/11/21 1319 Case Report -- Surgical Pathology Report ? Case: [id number] ? Authorizing Provider: ?Jennifer Cuevas MD ? [...] A11 and A16 were reviewed at the [facility] gynecologic pathology consensus conference via telepathology on 09/09/20[address] Lupe Younger and Andra Franco agree with the diagnosis of acute salpingitis. ? Laboratory Developed Test (LDT) Disclaimer: Performance characteristics of immunohistochemical, immunofluorescent and chromogenic in-situ hybridization tests have been determined by the performing laboratory within [facility]?s [facility] Pathology and Laboratory Medicine [place] ([facility], [facility], [facility] or [facility]) in a manner consistent with CLIA [...] pT, pN, and ( (more content not included)...[facility]04-29-2022 History of Present illness Narrative* Jennifer Cuevas MD - 10/02/2021 1:00 PM EDT Gynecologic Oncology [facility] Follow up visit Date of service: 10/02/2021 PROBLEM/CC: Vida Nina presents for a post-op visit. SURGICAL PATHOLOGY [[id number]] Collected: 09/07/21 1104 Order Status: Completed Specimen: Tissue from UTERUS, CERVIX, BILATERAL FALLOPIAN TUBES AND BILATERAL OVARIES Updated: 09/11/21 1319 Case Report -- Surgical Pathology Report Case: [id number] Authorizing Provider: Jennifer Cuevas MD Collected: 09/07/2021 11:04 AM Ordering Location: [facility] Received: 09/07/2021 11:12 AM Pathologist: [...] A11 and A16 were reviewed at the [facility] gynecologic pathology consensus conference via telepathology on 09/09/20[address] Lupe Younger and Andra Franco agree with the diagnosis of acute salpingitis. Laboratory Developed Test (LDT) Disclaimer: Performance characteristics of immunohistochemical, immunofluorescent and chromogenic in-situ hybridization tests have been determined by the performing laboratory within [facility] s [facility] Pathology and Laboratory Medicine [place] ([facility], [facility], [facility] or [facility]) in a manner consistent with CLIA [...] fibrous ovarian parenchyma with no lesions identified. 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 Reports normal pap [...] Her incisions have healed well. Abdomen non-tender. Website Admin for exam: Sherrie RESULTS: 07/26/21: ULTRASOUND The [...] without Cont on 08-07-2021 Abdomen/Pelvis without Cont [facility] Imaging Services [address] [place] [address] Abdomen/Pelvis without Cont MR#: [id number] Acct: [id number] Name: VIDA NINA Rep #: [id number] : 1950 F 70 From: Power Lopez MD PCP: Dr. Shayna Malhotra MD Status: REG CLI Study: Abdomen/Pelvis without Cont Date of Exam: 09/25 Exam# [id number] Ordering Dr: Saad Villagomez MD STUDY: CT [...] Paper guidelines (Godoy-Parrish, et al. JACR 2017; 14(8):5972-1916) suggest no imaging follow-up is necessary. ACR White Paper guidelines (Godoy-Parrish, et al. JACR 2017; 14(8):7068-2519) suggest no imaging follow-up is necessary. Consider [...] diagnosis with patient and caregiver (Arianna from [facility]). Discussed recommendations for treatment including TLH-BSO, sentinel [...] deemed medically necessary. Reviewed prior records from [facility] and Dr. Villagomez (medical oncologist) office. Requested images from CT A/P and ultrasound to be uploaded for review. Noted elevated CA 125. Plan to proceed with surgery in September. Will need preoperative anesthesia appointment. Contact information for Jose Rafael Resendiz: nurse line [phone]; assignment desk editor [phone]. Documentation from my notes of previous visit [...] arrange referral to radiation treatment center in [place], [place] five minutes from where she lives. [...] Past Histories independently gathered by the clinical youth support worker and the remaining scribed note accurately describes my personal service to the patient. documented in this encounter[facility] Nurse Note* Moriah Aldridge RN - 10/02/2021 12:50 PM EDT Patient arrived amb A&Ox4 in [facility] for post op visit. Patient admits to pain in abd and lower back resolved since surgery. Pt denies any new concerns, today. Pt here with Marguerite, friend. Enc and support provided. Moriah Aldridge RN documented in this encounterSumma [facility]04-18-2022 Miscellaneous Notes* Telephone Encounter - Jeffrey Ferris - 09/21/2021 12:10 PM EDT Spoke to Nurse Bernadine from [facility] stated that the patient is in the hospital and she will call when the patient comes out. So 09/22/21 appt in this office with Dr. Cuevas has been cancelled. Jeffrey Ferris 09/21/21 documented in this encounterSumma [facility]04-07-2022 Miscellaneous Notes* Telephone Encounter - Taniya Balderas APRN.MICHELLE - 09/10/2021 8:25 AM EDT Called [facility] left message on nurse line to [...] to. meds that are susceptible are iv. detention can recheck urine if still + then would need to get ID involved verbal instructions per Dr julieth Balderas APRN.LOCOMOTIVE OPERATOR HELPER documented in this encounterSumma Health [facility]04-06-2022 Miscellaneous Notes* Telephone Encounter - Summer Turcios RN - 09/09/2021 2:50 PM EDT Franklin from [facility] returned call to this RN. Reviewed [...] confidential e-mail) Attempted to call Franklin at [facility] to review above message, no answer. Left message on voicemailto return call. Summer Turcios RN * Telephone Encounter - Summer Turcios RN - 09/09/2021 1:58 PM EDT Franklin, skilled nursing case manager at [facility] called stated, "one of patient's lap sites [...] e-mail). Summer Turcios RN documented in this encounterSumma Health [facility]04-05-2022 NoteHNO ID: [id number] Author: Sam Naidu DO Service: Gynecology Oncology [...] Date 09/07/21 07 - 09/08/21 0659 Shift 6331-5443 5096-4555 4697-1621 24 Hour Total PO 360 360 PO 360 360 IV 4423 285 2155 Volume (mL) (ceFAZolin 3 g in D5W 100 mL (ANCEF)) 100 100 Volume (mL) (NaCl 0.9% iv infusion) 500 500 Volume (mL) (lactated ringers iv infusion) 1300 1300 Volume (mL) (lactated ringers iv infusion) 300 300 Shift Total 3935 567 3284 Urine 1000 1000 Void (ml) 1000 1000 [...] 154 VTE RISK CATEGORY: SURGICAL HIGH RISK ([place]) Active VTE Medication Orders: Anticoagulant AND Antiplatelet Medications (From admission, onward) Start Dose Route Frequency Last Action Ordered Stop 09/08/21 0900 enoxaparin 40 mg injection (LOVENOX) (Surgical Risk Categories) 40 mg SUBCUTANEOUS EVERY 24 HOURS Ordered 09/07/211541 -- Active VTE Prophylaxis Orders: 09/07/21 1545 PNEUMATIC COMPRESSION STOCKINGS ([place]) 09/07/21 154 ACTIVITY - MOBILIZE PATIENT ([place], [place]) VTE Prophylaxis: VTE prophylaxis appropriate Assessment/Plan Vida Nina is a 70 year old year old female POD#1 s/p EUA, TLH-BSO for endometrial cancer #Postoperative care - VSSAF - VTE (more content not included)...[facility]04-04-2022 Note HNO ID: [id number] Author: Hieu Raymond APRN.RISK ENGINEER Service: Anesthesiology Author Type: Nurse Rn Anesthesiology Type: Anesthesia Procedure Notes Filed: 09/07/2021 9:28 AM Note Text: ANESTHESIOLOGY PROCEDURE NOTE Airway General Information Procedure Start Time/Medication Administration: 09/07/2021 8:29 AM Patient location during procedure: OR Timeout Performed Pre-procedure: timeout performed Consent Obtained: Yes Patient identity confirmed: arm band Staffing RISK ENGINEER: Hieu Raymond APRN.RISK ENGINEER Performed by: ANURAG Indications and Patient Condition Preoxygenated: yes Patient position: sniffing, ramp and reverse Trendelenburg Manual In-Line Stabilization: No Difficult Mask: No Indications for airway management: anesthesia anesthesia circuit Method: modified rapid sequence Cricoid Pressure: Yes Airway Accessory: oral airway Final Airway Details Final airway type: endotracheal airway Final Endotracheal Airway: ETT Cuffed: yes Successful intubation technique: video laryngoscopy Devices used: Breaker Endotracheal tube insertion site: oral Blade: Osman [...] intubation: no Difficult airway SIGNATURE: Hieu Raymond APRN.RISK ENGINEER PATIENT NAME: Vida Nina DATE: September 07, 2021 TIME: 9:25 AM CSN: [id number] [facility]03-[facility] Instructions * Patient Instructions* Naila Barrientos APRN.LOCOMOTIVE OPERATOR HELPER - 09/01/2021 3:11 PM EDT PATIENT PREOPERATIVE INSTRUCTIONS Your surgeon has scheduled for your procedure at this surgery center: Dr. Cuevas has scheduled you for your procedure at this surgery center [facility]: [phone], [address] [place], [place] [address] Enter the hospital through the main entrance and proceed directly to the Surgery Welcome Center. Asyou enter the Surgery Welcome Center and sign in with the receptionist nurse, we may ask for your photo ID [...] If you are having surgery at the [facility], please bring your glucometer Pain Medications: [...] surgery. - YOU MUST HAVE A RESPONSIBLE PIGMENT GRINDER TAKE YOU HOME. A AEROSPACE PHYSIOLOGICAL TECHNICIAN, CAB OR UBER PIGMENT GRINDER CANNOT BE MADEA RESPONSIBLE PIGMENT GRINDER. - We recommend that a responsible person [...] COVID-19 positive. If visitors do not follow [facility] masking guidelines, caregivers can [facility] and restrict [facility] privileges. For support, contact Elizabeth at [phone] or [email or web address]. The visitor will be allowed [...] and will then instruct the visitor for fruit picker directions Visitors who have tested positive [...] Faster: A Guide of Mind Body Techniques ([place], [place];[employer]: Fourth Edition) 2011 Naila Barrientos APRN.CNP 09/01/21 documented in [facility] History and physical note * Naila [...] with Dr. Cuevas. Surgery will be at [facility] Scheduled as an TBA Have you been in contact with someone with known coronavirus/Covid 19? no Have you had surgery or pre testing at [facility] in the past 3 years? no [...] Negative for: AICD/PPM, chest pain, CHF, recent [place] and open heart surgery. GI: Positive for: abdominal pain Negative for: nausea and vomiting. : No history of dysuria, frequency or incontinence, stones or chronic kidney disease. No difficulty urinating, nocturia > 1 time per night or hematuria. 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 [...] or any previous visit (from the past 05787 hour(s)). Assessment No problem-specific Assessment & Plan [...] slightly elevated. Treated with oral medications. 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 Patient given verbal and written preop instructions and voices comprehension and compliance. SIGNATURE: Naila Barrientos APRN.CNP PATIENT NAME: Vida Nina DATE: September 01, 2021 TIME: 2:53 PM PAGER/CONTACT #: documented in this encounterSum[facility]03-18-2022 NoteHNO ID: [id number] Author: Jennifer Cuevas MD Service: ? Author Type: Physician Type: Progress Notes Filed: 08/26/2021 1:21 PM Note Text: Gynecologic Oncology [facility] [place] [facility] Date of service: 08/21/2021 PCP: [...] many years since she has seen a aircraft engine assembler, maybe > 10 years. 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 Acid Purification Equipment Operator History ? 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 Age at Menarche: ? Age at First : ? Age at Menopause: ? Acid Purification Equipment Operator History Comments: ? Sexual Activity: Not [...] 1 capsule by mouth (more content not included)...[facility] 07-29-2021 NoteHNO ID: [id number] Author: Krunal Erazo MD Service: ? Author [...] many years since she has seen a aircraft engine assembler, maybe > 10 years. 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 Acid Purification Equipment Operator History LMP: Postmenopausal Age at Menarche: Age at First : Age at Menopause: Acid Purification Equipment Operator History Comments: Sexual Activity: Not Asked; [...] external genitalia atrophic, normal Bartholin's glands, urethra, [place]'s glands, no vulvar lesions, no cervical lesions, good vaginal support, normal appearing perineal body and perianal region, scant (more content not included)...[facility] Pre-op testing- Primary Preoperative examination, unspecified Endometrial cancer (HCC) Malignant neoplasm of corpus uteri, except isthmus Mixed hyperlipidemia 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, with long-term current use of insulin (HCC) Primary hypertension Unspecified essential hypertension Endometrial cancer (HCC) Malignant neoplasm of corpus uteri, except isthmus documented in this encounter [facility] note* Diagnosis Onset Date Resolution Status Uterine mass acute Endometrial adenocarcinoma a cute Debility acute Pulmonary embolism acute [facility] Work Phone: Evaluation note* Diagnosis Onset Date Resolution Status Uterine mass acute Endometrial adenocarcinoma a cute Debility acute Pulmonary embolism acute Debility acute Elevated troponin I level ac [place] Lactic acidosis acute DM2 (diabetes mellitus, type 2) chronic [facility] Work Phone: Evaluation note* Diagnosis Endometrial cancer (HCC)- Primary Malignant neoplasm of corpus uteri, except isthmus documented in this encounter [facility] note* Diagnosis Onset Date Resolution Status Debility acute Pulmonary embolism acute Debility acute DM2 (diabetes mellitus, type 2) chronic Elevated troponin I level re solved Lactic acidosis resolved [facility] Work Phone: Evaluation noteNo assessment information available [facility] Work Phone: Evaluation note* Diagnosis Onset Date Resolution Status Debility acute Endometrial adenocarcinoma a cute Former smoker acute History of seizures acute Pulmonary embolism acute Vitamin D deficiency acute Bipolar disorder chronic DM2 (diabetes mellitus, type 2) chronic Type 1 diabetes mellitus chr onic [facility] Work Phone: Evaluation note* Diagnosis Onset Date Resolution Status Debility acute Vitamin D deficiency acute Bipolar disorder chronic Depression chronic DM2 (diabetes mellitus, type 2) chronic [facility] Work Phone[facility] Work Phone: Hospital Discharge instructions Additional [...] care physician for further outpatient evaluation and management.[facility] Work Phone: Reason for referral (narrative)No reason for referral information availableWPike Community Hospital Work Phone: Summary Purpose Family History [...] FoundDocuments on File Type Date Recorded Patient Rda Expl anation Advance Directive(s) 09/07/2021 6:14 AM Advance Directive Response Recorded Date/ Time Living Will No September 20, 2021 7:30am Power of Cistern Room Working Supervisor No September 20 7:30am Advance Directive Response Recorded Date/ Time Living Will No September 20, 2021 12:38pm Power of Cistern Room Working Supervisor No September 20 12:38pm Advance Directive Response Recorded Date/ Time Name of Medical Power of Cistern Room Working Supervisor TODD November 22, 2021 1:03pm Living Will Yes November 22, 2021 1:03pm Power of Cistern Room Working Supervisor Yes November 22 1:03pm Advance Directive Response Recorded Date/ Time Name of Medical Power of Cistern Room Working Supervisor oTdd Nina November 22, 2021 5:55pm Living Will No November 22, 2021 5:55pm Power of Cistern Room Working Supervisor Yes November 22 5:55pm Advance Directive Response Recorded Date/ Time Living Will No April 13 10:27am Power of Cistern Room Working Supervisor Yes April 13, 2022 10:27am Advance Directive Response Recorded Date/ Time Living Will No April 13 11:27am Power of Cistern Room Working Supervisor Yes April 13, 2022 11:27am Advance Directive Response Recorded Date/ Time Living Will No January 09, 2023 5:18pm Power of Cistern Room Working Supervisor No January 09 5:18pm Advance Directive Response Recorded Date/ Time Living Will No January 09, 2023 4:18pm Power of Cistern Room Working Supervisor No January 09 4:18pm Advance Directive Response Recorded Date/ Time Do you have a Healthcare Power of Cistern Room Working Supervisor? Yes October 09, 2024 5:45pm Advance Directive Response Recorded Date/ Time Do you have a Healthcare Power of Cistern Room Working Supervisor? No October 09, 2024 11:07pm Health Concerns Infection Onset Date Last Indicated Resolved Time COVID-19 Rule-Out 09/07/2021 09/07/2021 Chief Complaint and Reason for Visit Chief Complaint LONG TERM LABOWRK LONG TERM LABWORK LONG TERM LABWORK VAGINAL BLEEDING NEW-CERVICAL MASS MED ONC CERVICAL MASS 2WKS NO LABS REVIEW CT/PATH FRO [facility]-BAR[facility]ZA PE, FAILURE TO THRIVE PE, FAILURE TO THRIVE Reason for Visit Uterine mass Endometrial adenocarcinoma Debility Pulmonary embolism Chief Complaint LONG TERM LABOWRK LONG TERM LABWORK LONG TERM LABWORK VAGINAL BLEEDING NEW-CERVICAL MASS MED ONC CERVICAL MASS 2WKS NO LABS REVIEW CT/PATH FRO CCF-BARBOZA PE, FAILURE TO THRIVE PE, FAILURE TO THRIVE PE, FAILURE TO THRIVE PE, FAILURE TO THRIVE Reason for Visit Uterine mass Endometrial adenocarcinoma Debility Pulmonary embolism Chief Complaint LONG TERM LABWORK LONG TERM LABWORK VAGINAL BLEEDING NEW-CERVICAL MASS MED ONC CERVICAL MASS 2WKS NO LABS REVIEW CT/PATH FRO CCF-BARBOZA LONG TERM LABWORK PE, FAILURE TO THRIVE PE, FAILURE TO THRIVE PE, FAILURE TO THRIVE PE, FAILURE TO THRIVE LONG TERM LABWORK Reason for Visit Uterine mass Endometrial adenocarcinoma Debility Pulmonary embolism Chief Complaint VAGINAL BLEEDING NEW-CERVICAL MASS MED ONC CERVICAL MASS 2WKS NO LABS REVIEW CT/PATH FRO CCF-BARBOZA LONG TERM LABWORK PE, FAILURE TO THRIVE PE, FAILURE TO THRIVE PE, FAILURE TO THRIVE PE, FAILURE TO THRIVE LONG TERM LABWORK LONG TERM LABWORK Reason for Visit Uterine mass Endometrial adenocarcinoma Debility Pulmonary embolism Chief Complaint VAGINAL BLEEDING NEW-CERVICAL MASS MED ONC CERVICAL MASS 2WKS NO LABS REVIEW CT/PATH FRO CCF-BARBOZA LONG TERM LABWORK PE, FAILURE TO THRIVE PE, FAILURE TO THRIVE PE, FAILURE TO THRIVE PE, FAILURE TO THRIVE LONG TERM LABWORK LONG TERM LABWORK DEBILITY/KAYLA Reason for Visit Uterine mass Endometrial adenocarcinoma Debility Pulmonary embolism Chief Complaint NEW-CERVICAL MASS MED ONC CERVICAL MASS 2WKS NO LABS REVIEW CT/PATH FRO [facility]CF-BARBOZA LONG TERM LABWORK PE, FAILURE TO THRIVE PE, FAILURE TO THRIVE PE, FAILURE TO THRIVE PE, FAILURE TO THRIVE LONG TERM LABWORK LONG TERM LABWORK DEBILITY/KAYLA DEBILITY/KAYLA DEBILITY/KAYLA DEBILITY/KAYLA Reason for Visit Uterine mass Endometrial adenocarcinoma Debility Pulmonary embolism Debility Elevated troponin I level Lactic acidosis DM2 (diabetes mellitus, type 2) Chief Complaint LONG TERM LABWORK PE, FAILURE TO THRIVE PE, FAILURE TO THRIVE PE, FAILURE TO THRIVE PE, FAILURE TO THRIVE LONG TERM LABWORK LONG TERM LABWORK DEBILITY/KAYLA DEBILITY/KAYLA DEBILITY/KAYLA DEBILITY/KAYLA DEBILITY/KAYLA LONG TERM LABWORK LONG TERM LABWORK LONG TERM LAB WORK Reason for Visit Debility Pulmonary embolism Debility DM2 (diabetes mellitus, type 2) Elevated troponin I level Lactic acidosis Chief Complaint LONG TERM LABWORK LONG TERM LAB WORK Chief Complaint LONG TERM LAB WOR K 1 Y FU LONG TERM LAB WORK Reason for Visit Debility Endometrial adenocarcinoma Former smoker History of seizures Pulmonary embolism Vitamin D deficiency Bipolar disorder DM2 (diabetes mellitus, type 2) Type 1 diabetes mellitus Chief Complaint LONG TERM LAB WOR K 1 Y FU LONG TERM LAB WORK LONG TERM LAB WORK Reason for Visit Debility Endometrial adenocarcinoma Former smoker History of seizures Pulmonary embolism Vitamin D deficiency Bipolar disorder DM2 (diabetes mellitus, type 2) Type 1 diabetes mellitus Chief Complaint 1 Y FU LONG TERM LAB WORK LONG TERM LAB WORK LONG TERM LABWORK Reason for Visit Debility Endometrial adenocarcinoma Former smoker History of seizures Pulmonary embolism Vitamin D deficiency Bipolar disorder DM2 (diabetes mellitus, type 2) Type 1 diabetes mellitus Chief Complaint LONG TERM LAB WOR K 6 M FU gen illness Reason for Visit Debility Vitamin D deficiency Bipolar disorder Depression DM2 (diabetes mellitus, type 2) Chief Complaint LONG TERM LABWORK LONG TERM LABWORK Chief Complaint Admit Date LT Ankle Pain July 04, 2024 1 2:57pm LONG TERM LAB WORK July 09, 2024 4:00am ACUTE [...] Ankle Pain July 04, 2024 1 2:57pm LONG TERM LAB WORK July 09, 2024 4:00am ACUTE CYSTITIS, NEUROPATHIC PAIN OF LEFT FOOT AND October 09, 2024 9:56pm ACUTE CYSTITIS, NEUROPATHIC PAIN OF LEFT FOOT AND October 10, 2024 7:39am Chief Complaint Admit Date LABOWRK November 26, 2024 5:00 am LONG TERM LAB WORK December 04, 2024 4:0 0am LABOWRK January 21, 2025 5: 00am Additional Source Comments INFORMATION SOURCE (unrecogn ized section and content) DATE CREATED AUTHOR 08/31/2021 [facility] DATE CREATED AUTHOR AUTHOR'S ORGANIZ ATION 12/01/2021 [facility] DATE CREATED AUTHOR AUTHOR'S ORGANIZ ATION 04/17/2025 [facility] Source Comments (unrecognize d section and content) In the event this informatio n is protected by the Federal Confidentiality of Alcohol and Drug Abuse Patient Records regulations: The Federal rules restrict any use of the information to criminally investigate or prosecute any alcohol or drug abuse patient.[facility] the event this information is protected by the Federal Confidentiality of Alcohol and Drug Abuse Patient Records regulations: The Federal rules restrict any use of the information to criminally investigate or prosecute any alcohol or drug abuse patient.[facility] the event this information is protected by the Federal Confidentiality of Alcohol and Drug Abuse Patient Records regulations: The Federal rules restrict any use of the information to criminally investigate or prosecute any alcohol or drug abuse patient.[facility] the event this information is protected by the Federal Confidentiality of Alcohol and Drug Abuse Patient Records regulations: The Federal rules restrict any use of the information to criminally investigate or prosecute any alcohol or drug abuse patient.[facility] the event this information is protected by the Federal Confidentiality of Alcohol and Drug Abuse Patient Records regulations: The Federal rules restrict any use of the information to criminally investigate or prosecute any alcohol or drug abuse patient.[facility] Reason for Visit (unrecogniz ed section [...] Shayna Malhotra MD Primary Care Provider Active [facility] Attending Provider Acti ve Team Status: [...] BE BASED ON THE PRIMARY CLINICAL RECORDS. [employer] provides no warranty or guarantee of the accuracy or completeness of information in this document.
[2025-05-06 08:22] LABS: Anion Gap 12 (5-15); BUN 31 mg/dL (4-19); BUN/Creat Ratio 18.4 RATIO (10-20); Calcium,Total 9.4 mg/dL (7.6-11.0); Carbon Dioxide 26.0 mmol/L (21.0-32.0); Chloride 98 mmol/L (98-108); Glucose 189 mg/dL (70-99); Magnesium 2.3 mg/dL (1.5-2.2); Potassium 4.6 mmol/L (3.3-5.1)
== END ==
LOC: OLS.SWAL 05:00
PROVIDERS: PCP Internal Medicine; Visit Provider Internal Medicine
DX: E11.9 Type 2 diabetes mellitus without complications (principal); E78.5 Hyperlipidemia, unspecified; I10 Essential (primary) hypertension
CPT/HCPCS: 36415; 80048; 82542; 83735

== ENCOUNTER → 2025-05-09 | Outpatient (REF) | payer MEDICARE, MEDICAID, SELFPAY ==
--- OUTSIDE RECORDS SUMMARY | 2025-05-09 05:09 | XMS RPT_ITS | CCD ---
Author Organization [facility] Care Team Providers Care Business Banking Representative Name Role Phone Sena Cox NP Unavailable Johnny Richardson Unavailable Unavailable Unavailable [facility] Shayna Malhotra Primary Care Provider [...] Unavailabl e Dylan LEAL, Dany Emergency Provider [phone] Hernandez DO, Dr. Canas Admit Provider Unavail able Hernandez DO, Dr. Canas Attending Provider Unav ailable Hernandez DO, Dr. Canas Other Provider Unavail able Camilo LEAL, Dr. Santillan Attending Provider Camilo LEAL, Dr. Santillan Other Provider Marya LEAL, Dr. Corral Primary Care Physician [phone] Genoveva LEAL, Dr. Servin Attending Physician Unavail able Genoveva LEAL, Dr. Servin Referring Provider Unavaila Shea Whipple Attending Unavailable Marya, Shayna Primary Care Unavailable Tyrell Page Referring Unavailable Marya, Shayna Primary Care Unavailable Shayna Malhotra Attending Unavailable Missale Hernandez Consulting Unavailable Missael Hernandez Admitting Unavailable Marya, Shayna Primary Care Unavailable Tyrell Page Attending Unavailable Marya OLS, Shayna Referring Unavailable Marya OLS, Shayna Attending Unavailable Marya, Shayna Primary Care Unavailable Marya OLS, Shayna Attending Unavailable Marya, Shayna Primary Care Unavailable Marya, Shayna Primary Care Unavailable Gudla OLS, Malathi Attending Unavailable Marya, Shayna Primary Care Unavailable Gudla OLS, Malathi Attending Unavailable Maray, Shayna Primary Care Unavailable Gudla SHELLEY, Malathi [...] Allergy 08-12-19 06 Shortness of Breath, Anaphylaxis [facility] (20 sources) Contrast media; Translations: [red dye] Drug Allergy 02-10-20 16 [facility] (5 sources) Fish Drug Allergy 02-10-20 16 [facility] (20 sources) metFORMIN Drug Allergy 11-21-19 17 Diarrhea, GI Upset, Vomiting [facility] (20 sources) paliperidone Drug Allergy 11-21-19 17 Rash [facility] (14 sources) Penicillins Drug Allergy 07-15-19 06 [facility] (20 sources) Shellfish; Translations: [shellfish derived] Drug Intolerance 02-29-20 19 Diarrhea, Vomiting [facility] (15 sources) Sulfonamides (Antibiotic) Drug Allergy 07-15-19 06 [facility] (15 sources) Iodinated Contrast Media Drug Allergy 02-29-20 19 Rash [facility] (4 sources) Mold Extract Drug Allergy 09-08-19 Rash [facility] (20 sources) Ciprofloxacin; Translations: [ciprofloxacin HCl] Drug Allergy 08-12-19 22 Anaphylaxis [facility] (19 sources) red (food color); Translations: [red (food color)] Allergy to substance 09-21-19 Hives [facility] (1 source) Penicillins Drug Allergy 07-15-19 Rash [facility] (9 sources) Penicillins Allergy to substance 11-23-19 RASH AND ITCHING [facility] (9 sources) Sulfonamides (Antibiotic) Allergy to substance 11-23-19 RASH AND ITCHING [facility] (9 sources) Triiodobenzoic Acids Allergy to substance 11-23-19 Rash [facility] (1 source) Ciprofloxacin Drug Allergy 10-10-19 [facility] (1 source) metFORMIN Drug Allergy 10-10-19 [facility] (1 source) paliperidone Drug Allergy 10-10-19 [facility] (1 source) Penicillins Drug allergy (disorder) 10-10-19 [facility] (1 source) Sulfonamides (Antibiotic) Drug allergy (disorder) 10-10-19 [facility] (1 source) Iodinated Contrast Media Drug allergy (disorder) 10-10-19 [facility] Medications Current Medications Medication Drug Class(es) Dates Sig (Normalized) Sig (Original) acetaminophen 325 mg oral tablet (20 sources) Start: 09-07-2021 End: 09-21-2021 take 2 tablets by mouth every six hours acetaminophen (TYLENOL) 325 mg tablet Take 2 tablets by mouth every 6 hours for 14 days. 112 tablet 0 09/07/2021 09/21/2021 Active Start: 07-30-2021 [facility] four hours [facility] needed [...] D2 Compound Start: 09-20-2021 Start: 09-20-2021 take 72947 [IU] by m outh every other week Ergocalciferol (Vitamin D2) Active 95971 UNIT PO Q1September 19, 2021 11:00pm Take every 2 weeks on Mondays Start: 09-08-2017 End: 03-21-2020 Ergocalciferol (Vitamin D2) 50,000 unit capsule Discontinued 52091 U PO EVERY MONTH 10 September 08, [...] SOPN Use 18 units daily. 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 LANCETS [id number] Sena Cox HYDROELECTRIC COMPONENT MACHINIST mag hydrox/aluminum hyd/simeth (ANTACID SUSPENSION ORAL) (5 [...] Active Comment on above: twice daily. nystatin 637068 unt/ml oral suspension (17 sources) Polyene Antifungal [...] November 23, 2021 11:00pm polyethylene glycol 3350 92613 mg powder for oral solution (9 sources) Osmotic Laxative Start: 09-08-2021 End: 10-08-2021 polyethylene glycol 3350 (MIRALAX, GLYCOLAX) 17 gram packet Take 1 Packet by mouth once daily. Dissolve dose in 4 - 8 ounces of liquid and take as directed. 30 Packet 0 09/08/2021 10/08/2021 Comment on above: Take 1 Packet by [facility] once daily. Dissolve dose in 4 [...] shows localized disease. 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, [address] Urine Cultureon 04-03-2025 URC Presumptive E. coli Newton Count >100,000 Presumptive E. coli: REACTION Ampicillin [...] TMP SMX Islt TRANG <=20 S Normal [facility] Comment on above: Performed By: #### L 500.4050, L506.1000, L501.9985, L100.0100 #### [facility] [address] [place], [address] Basic Metabolic Profile (BMP )on 04-01-2025 BUN/CRE 23.4 RATIO High 10-20 [facility] Comment on above: Performed By: #### L 501.080 #### [facility] [address] [place], [address] Calcium [Mass/Vol] 9.4 mg/dL Normal 7.6-11.0 [facility] Comment on above: Performed By: #### L 501.080 #### [facility] [address] [place], [address] Chloride [Moles/Vol] 102 mmol/L Normal 98-108 [facility] Comment on above: Performed By: #### L 501.080 #### [facility] [address] [place], [address] CO2 [Moles/Vol] 25.7 mmol/L Normal 21.0-32.0 [facility] Comment on above: Performed By: #### L 501.080 #### [facility] [address] [place], [address] Creatinine [Mass/Vol] 1.04 mg/dL Normal 0.70-1.20 [facility] Comment on above: Performed By: #### L 501.080 #### [facility] [address] [place], [address] GAP 10 Normal 5-15 [facility] Comment on above: Performed By: #### L 501.080 #### [facility] [address] [place], [address] GFR/1.73 sq M.predicted among non-blacks MDRD (S/P/Bld) [Vol rate/Area] 57 mL/min/{1.73_m2} Low >60 [facility] Comment on above: Result Comment: mL/m in/1.73m2 CKD-EPI Creatinine Equation (2020) Performed By: #### L 501.080 #### [facility] [address] [place], [address] Glucose [Mass/Vol] 214 mg/dL High 70-99 [facility] Comment on above: Performed By: #### L 501.080 #### [facility] [address] [place], [address] Potassium [Moles/Vol] 4.5 mmol/L Normal 3.3-5.1 [facility] Comment on above: Performed By: #### L 501.080 #### [facility] [address] [place], [address] Sodium [Moles/Vol] 138 mmol/L Normal 133-145 [facility] Comment on above: Performed By: #### L 501.080 #### [facility] [address] [place], [address] Urea nitrogen [Mass/Vol] 24 mg/dL High 4-19 [facility] Comment on above: Performed By: #### L 501.080 #### [facility] [address] [place], [address] CBC-Complete Blood Cnt No Di ffon 04-01-2025 Erythrocyte distribution width (RBC) [Ratio] 14.6 % Normal 11.6-14.6 [facility] Comment on above: Performed By: #### L 501.080 #### [facility] [address] [place], [address] Hematocrit (Bld) [Volume fraction] 34.6 % Low 37-47 [facility] Comment on above: Performed By: #### L 501.080 #### [facility] [address] [place], [address] Hemoglobin (Bld) [Mass/Vol] 11.6 g/dL Low 12.0-15.0 [facility] Comment on above: Performed By: #### L 501.080 #### [facility] [address] [place], [address] MCH (RBC) [Entitic mass] 30.4 pg Normal 27.0-32.0 [facility] Comment on above: Performed By: #### L 501.080 #### [facility] [address] [place], [address] MCHC (RBC) [Mass/Vol] 33.5 g/dL Normal 32-36 [facility] Comment on above: Performed By: #### L 501.080 #### [facility] [address] [place], [address] MCV (RBC) [Entitic vol] 90.6 fL Normal 81-99 [facility] Comment on above: Performed By: #### L 501.080 #### [facility] [address] [place], [address] Platelet mean volume (Bld) [Entitic vol] 11.0 fL Normal 6.2-12.0 [facility] Comment on above: Performed By: #### L 501.080 #### [facility] [address] [place], [address] Platelets (Bld) [#/Vol] 103 10*3/uL Low 150-450 [facility] Comment on above: Performed By: #### L 501.080 #### [facility] [address] [place], [address] RBC (Bld) [#/Vol] 3.82 10*6/uL Low 4.2-5.4 [facility] Comment on above: Performed By: #### L 501.080 #### [facility] [address] [place], [address] RDW SD 48.3 fl High 35.1-43.9 [facility] Comment on above: Performed By: #### L 501.080 #### [facility] [address] [place], [address] WBC (Bld) [#/Vol] 3.6 10*3/uL Low 4.4-11.0 [facility] Comment on above: Performed By: #### L 501.080 #### [facility] [address] [place], [address] Magnesiumon 04-01-2025 Magnesium [Mass/Vol] 2.3 mg/dL High 1.5-2.2 [facility] Comment on above: Performed By: #### L 501.080 #### [facility] [address] [place], [address] Urinalysis, Completeon 04-01 BACTERIA 2+ /hpf Normal None Seen [facility] Comment on above: Order Comment: CLEAN CATCH Performed By: #### L 501.080 #### [facility] [address] [place], [address] EPI,SQUAMOUS 0-5 SEEN Normal 5-10 [facility] Comment on above: Order Comment: CLEAN CATCH Performed By: #### L 501.080 #### [facility] [address] [place], [address] WBC 10-25 SEEN Normal 0-5 [facility] Comment on above: Order Comment: CLEAN CATCH Performed By: #### L 501.080 #### [facility] [address] [place], [address] Mucus Ql (Urine sed) 0 SEEN Normal [facility] Comment on above: Order Comment: CLEAN CATCH Performed By: #### L 501.080 #### [facility] [address] [place], [address] RBC 0 SEEN Normal 0-5 [facility] Comment on above: Order Comment: CLEAN CATCH Performed By: #### L 501.080 #### [facility] [address] [place], [address] Basic Metabolic Profile (BMP )on 03-20-2025 BUN/CRE 20.6 RATIO High 03-25 [facility] Comment on above: Order Comment: 134 Performed By: #### L 500.4050, L506.1000, L501.9985, L100.0100 #### [facility] [address] [place], [address] Calcium [Mass/Vol] 9.7 mg/dL Normal 7.6-11.0 [facility] Comment on above: Order Comment: 134 Performed By: #### L 500.4050, L506.1000, L501.9985, L100.0100 #### [facility] [address] [place], [address] Chloride [Moles/Vol] 103 mmol/L Normal 98-108 [facility] Comment on above: Order Comment: 134 Performed By: #### L 500.4050, L506.1000, L501.9985, L100.0100 #### [facility] [address] [place], [address] CO2 [Moles/Vol] 21.4 mmol/L Normal 21.0-32.0 [facility] Comment on above: Order Comment: 134 Performed By: #### L 500.4050, L506.1000, L501.9985, L100.0100 #### [facility] [address] [place], [address] Creatinine [Mass/Vol] 1.15 mg/dL Normal 0.70-1.20 [facility] Comment on above: Order Comment: 134 Performed By: #### L 500.4050, L506.1000, L501.9985, L100.0100 #### [facility] [address] [place], [address] GAP 13 Normal 5-15 [facility] Comment on above: Order Comment: 134 Performed By: #### L 500.4050, L506.1000, L501.9985, L100.0100 #### [facility] [address] [place], [address] GFR/1.73 sq M.predicted among non-blacks MDRD (S/P/Bld) [Vol rate/Area] 51 mL/min/{1.73_m2} Low >60 [facility] Comment on above: Order Comment: 134 Result Comment: mL/m in/1.73m2 CKD-EPI Creatinine Equation (2020) Performed By: #### L 500.4050, L506.1000, L501.9985, L100.0100 #### [facility] [address] [place], [address] Glucose [Mass/Vol] 224 mg/dL High 70-99 [facility] Comment on above: Order Comment: 134 Performed By: #### L 500.4050, L506.1000, L501.9985, L100.0100 #### [facility] [address] [place], [address] Potassium [Moles/Vol] 4.7 mmol/L Normal 3.3-5.1 [facility] Comment on above: Order Comment: 134 Result Comment: Hemo lysis present, Results??could be affected. ?? Performed By: #### L 500.4050, L506.1000, L501.9985, L100.0100 #### [facility] [address] [place], [address] Sodium [Moles/Vol] 137 mmol/L Normal 133-145 [facility] Comment on above: Order Comment: 134 Performed By: #### L 500.4050, L506.1000, L501.9985, L100.0100 #### [facility] [address] [place], [address] Urea nitrogen [Mass/Vol] 24 mg/dL High 4-19 [facility] Comment on above: Order Comment: 134 Performed By: #### L 500.4050, L506.1000, L501.9985, L100.0100 #### [facility] [address] [place], [address] CBC-Complete Blood Cnt No Di ffon 03-20-2025 Erythrocyte distribution width (RBC) [Ratio] 14.8 % High 11.6-14.6 [facility] Comment on above: Order Comment: 134 Performed By: #### L 500.4050, L506.1000, L501.9985, L100.0100 #### [facility] [address] [place], [address] Hematocrit (Bld) [Volume fraction] 35.8 % Low 37-47 [facility] Comment on above: Order Comment: 134 Performed By: #### L 500.4050, L506.1000, L501.9985, L100.0100 #### [facility] [address] [place], [address] Hemoglobin (Bld) [Mass/Vol] 11.8 g/dL Low 12.0-15.0 [facility] Comment on above: Order Comment: 134 Performed By: #### L 500.4050, L506.1000, L501.9985, L100.0100 #### [facility] [address] [place], [address] MCH (RBC) [Entitic mass] 29.9 pg Normal 27.0-32.0 [facility] Comment on above: Order Comment: 134 Performed By: #### L 500.4050, L506.1000, L501.9985, L100.0100 #### [facility] [address] [place], [address] MCHC (RBC) [Mass/Vol] 33.0 g/dL Normal 32-36 [facility] Comment on above: Order Comment: 134 Performed By: #### L 500.4050, L506.1000, L501.9985, L100.0100 #### [facility] [address] [place], [address] MCV (RBC) [Entitic vol] 90.6 fL Normal 81-99 [facility] Comment on above: Order Comment: 134 Performed By: #### L 500.4050, L506.1000, L501.9985, L100.0100 #### [facility] [address] [place], [address] Platelet mean volume (Bld) [Entitic vol] 11.3 fL Normal 6.2-12.0 [facility] Comment on above: Order Comment: 134 Performed By: #### L 500.4050, L506.1000, L501.9985, L100.0100 #### [facility] [address] [place], [address] Platelets (Bld) [#/Vol] 103 10*3/uL Low 150-450 [facility] Comment on above: Order Comment: 134 Performed By: #### L 500.4050, L506.1000, L501.9985, L100.0100 #### [facility] [address] [place], [address] RBC (Bld) [#/Vol] 3.95 10*6/uL Low 4.2-5.4 [facility] Comment on above: Order Comment: 134 Performed By: #### L 500.4050, L506.1000, L501.9985, L100.0100 #### [facility] [address] [place], [address] RDW SD 49.4 fl High 35.1-43.9 [facility] Comment on above: Order Comment: 134 Performed By: #### L 500.4050, L506.1000, L501.9985, L100.0100 #### [facility] [address] [place], [address] WBC (Bld) [#/Vol] 3.7 10*3/uL Low 4.4-11.0 [facility] Comment on above: Order Comment: 134 Performed By: #### L 500.4050, L506.1000, L501.9985, L100.0100 #### [facility] [address] [place], [address] Hemoglobin A1con 03-20-2025 HbA1c (Bld) [Mass fraction] 7.1 % High <=5.6 [facility] Comment on above: Order Comment: 134 Result Comment: Norm al < 5.7 % Prediabetic 5.7 - 6.4 % Diabetic >or= 6.5 % Please note range changes. Performed By: #### L 500.4050, L506.1000, L501.9985, L100.0100 #### [facility] [address] [place], [address] Pro- Brain NATRIURETIC PEPTI Oskar 03-20-2025 Natriuretic peptide B (Bld) [Mass/Vol] 133 pg/mL Normal <=900 [facility] Comment on above: Order Comment: 134 Result Comment: Hear t Failure Unlikely: < 300 pg/mL Heart Failure Likely < 50 Years: > 450 pg/mL 50-75 Years: > 900 pg/mL >75 Years: > 1800 pg/mL Performed By: #### L 500.4050, L506.1000, L501.9985, L100.0100 #### [facility] [address] [place], [address] Magnesiumon 01-23-2025 Magnesium [Mass/Vol] 2.1 mg/dL Normal 1.5-2.2 [facility] Comment on above: Order Comment: 134 Performed By: #### L 500.4050, L506.1000, L501.9985, L100.0100 #### [facility] [address] [place], [address] Anion gap in Serum or Plasma Ordered By: Malathi Tomas on 01-21-2025 Anion gap [Moles/Vol] 13 mmol/L -15 [facility] BUN/creatinine ratioOrdered By: Malathi Tomas on 01-21-2025 Urea nitrogen/Creatinine [Mass ratio] 23.4 mg/mg High - [facility] Basic Metabolic Profile (BMP )on 01-21-2025 BUN/CRE 23.4 RATIO High - [facility] Comment on above: Order Comment: 134 Performed By: #### L 500.4050, L506.1000, L501.9985, L100.0100 #### [facility] [address] [place], [address] Calcium [Mass/Vol] 9.2 mg/dL Normal 7.6-11.0 [facility] Comment on above: Order Comment: 134 Performed By: #### L 500.4050, L506.1000, L501.9985, L100.0100 #### [facility] [address] [place], [address] Chloride [Moles/Vol] 103 mmol/L Normal 98-108 [facility] Comment on above: Order Comment: 134 Performed By: #### L 500.4050, L506.1000, L501.9985, L100.0100 #### [facility] [address] [place], [address] CO2 [Moles/Vol] 20.8 mmol/L Low 21.0-32.0 [facility] Comment on above: Order Comment: 134 Performed By: #### L 500.4050, L506.1000, L501.9985, L100.0100 #### [facility] [address] [place], [address] Creatinine [Mass/Vol] 1.01 mg/dL Normal 0.70-1.20 [facility] Comment on above: Order Comment: 134 Performed By: #### L 500.4050, L506.1000, L501.9985, L100.0100 #### [facility] [address] [place], [address] GAP 13 Normal 5-15 [facility] Comment on above: Order Comment: 134 Performed By: #### L 500.4050, L506.1000, L501.9985, L100.0100 #### [facility] [address] [place], [address] GFR/1.73 sq M.predicted among non-blacks MDRD (S/P/Bld) [Vol rate/Area] 59 mL/min/{1.73_m2} Low >60 [facility] Comment on above: Order Comment: 134 Result Comment: mL/m in/1.73m2 CKD-EPI Creatinine Equation (2020) Performed By: #### L 500.4050, L506.1000, L501.9985, L100.0100 #### [facility] [address] [place], [address] Glucose [Mass/Vol] 164 mg/dL High 70-99 [facility] Comment on above: Order Comment: 134 Performed By: #### L 500.4050, L506.1000, L501.9985, L100.0100 #### [facility] [address] [place], [address] Potassium [Moles/Vol] 4.8 mmol/L Normal 3.3-5.1 [facility] Comment on above: Order Comment: 134 Performed By: #### L 500.4050, L506.1000, L501.9985, L100.0100 #### [facility] [address] [place], [address] Sodium [Moles/Vol] 137 mmol/L Normal 133-145 [facility] Comment on above: Order Comment: 134 Performed By: #### L 500.4050, L506.1000, L501.9985, L100.0100 #### [facility] [address] [place], [address] Urea nitrogen [Mass/Vol] 24 mg/dL High 4-19 [facility] Comment on above: Order Comment: 134 Performed By: #### L 500.4050, L506.1000, L501.9985, L100.0100 #### [facility] [address] [place], [address] Carbon dioxide, total [Moles /volume] in Central venous bloodOrdered By: Malathi Tomas on 01-21-2025 CO2 [Moles/Vol] 20.8 mmol/L Low 21.0-32.0 [facility] Chloride assayOrdered By: aTo Tomas on 01-21-2025 Chloride [Moles/Vol] 103 mmol/L 98-108 [facility] Glomerular filtration rate ( GFR) estimation/1.73 sq m using serum, plasma, or whole bOrdered By: Malathi Tomas on 01-21-2025 GFR/1.73 sq M.predicted among non-blacks MDRD (S/P/Bld) [Vol rate/Area] 59 mL/min/{1.73_m2} Low >60 [facility] Comment on above: mL/min/1.73m2 CKD-EP I Creatinine Equation (2020) Magnesium measurement (mass/ volume)Ordered By: Malathi Tomas on 01-21-2025 Magnesium (Unsp spec) [Mass/Vol] 2.1 mg/dL 1.5-2.2 [facility] Natriuretic peptide.B prohor magi N-Terminal [Mass/volume] in Serum or PlasmaOrdered By: Malathi Tomas on 01-21-2025 Natriuretic peptide.B prohormone N-Terminal [Mass/Vol] 260 pg/mL <900 [facility] Comment on above: Heart Failure Unlike ly: < 300 pg/mLHeart Failure Likely< 50 Years: > 450 pg/mL50-75 Years: > 900 pg/mL>75 Years: > 1800 pg/mL Potassium measurement (mass/ volume)Ordered By: Malathi Tomas on 01-21-2025 Potassium (Unsp spec) [Mass/Vol] 4.8 mmol/L 3.3-5.1 [facility] Pro- Brain NATRIURETIC PEPTI Oskar 01-21-2025 Natriuretic peptide B (Bld) [Mass/Vol] 260 pg/mL Normal <=900 [facility] Comment on above: Order Comment: 134 Result Comment: Hear t Failure Unlikely: < 300 pg/mL Heart Failure Likely < 50 Years: > 450 pg/mL 50-75 Years: > 900 pg/mL >75 Years: > 1800 pg/mL Performed By: #### L 500.4050, L506.1000, L501.9985, L100.0100 #### [facility] [place], [address] Serum creatinine measurement (mass/volume)Ordered By: Malathi Tomas on 01-21-2025 Creatinine [Mass/Vol] 1.01 mg/dL 0.70-1.20 [facility] Serum glucose measurement (m ass/volume)Ordered By: Malathi Tomas on 01-21-2025 Glucose [Mass/Vol] 164 mg/dL High 70-99 [facility] Serum or plasma calcium kim urement (mass/volume)Ordered By: Malathi Tomas on 01-21-2025 Calcium [Mass/Vol] 9.2 mg/dL 7.6-11.0 [facility] Serum or plasma urea nitroge n measurement (mass/volume)Ordered By: Malathi Tomas on 01-21-2025 Urea nitrogen [Mass/Vol] 24 mg/dL High 4-19 [facility] Sodium levelOrdered By: Marie Tomas on 01-21-2025 Sodium [Moles/Vol] 137 mmol/L 133-145 [facility] Anion gap in Serum or Plasma Ordered By: Malathi Tomas on 12-04-2024 Anion gap [Moles/Vol] 10 mmol/L 5-15 [facility] BUN/creatinine ratioOrdered By: Malathi Tomas on 12-04-2024 Urea nitrogen/Creatinine [Mass ratio] 22.2 mg/mg High - [facility] Basic Metabolic Profile (BMP )on 12-04-2024 BUN/CRE 22.2 RATIO High - [facility] Comment on above: Order Comment: N Performed By: #### L 506.0200 #### [facility] [address] [place], [address] Calcium [Mass/Vol] 9.4 mg/dL Normal 7.6-11.0 [facility] Comment on above: Order Comment: N Performed By: #### L 506.0200 #### [facility] [address] [place], [address] Chloride [Moles/Vol] 103 mmol/L Normal 98-108 [facility] Comment on above: Order Comment: N Performed By: #### L 506.0200 #### [facility] [address] [place], [address] CO2 [Moles/Vol] 23.5 mmol/L Normal 21.0-32.0 [facility] Comment on above: Order Comment: N Performed By: #### L 506.0200 #### [facility] [address] [place], [address] Creatinine [Mass/Vol] 1.13 mg/dL Normal 0.70-1.20 [facility] Comment on above: Order Comment: N Performed By: #### L 506.0200 #### [facility] [address] [place], [address] GAP 10 Normal 5-15 [facility] Comment on above: Order Comment: N Performed By: #### L 506.0200 #### [facility] [address] [place], [address] GFR/1.73 sq M.predicted among non-blacks MDRD (S/P/Bld) [Vol rate/Area] 52 mL/min/{1.73_m2} Low >60 [facility] Comment on above: Order Comment: N Result Comment: mL/m in/1.73m2 CKD-EPI Creatinine Equation (2020) Performed By: #### L 506.0200 #### [facility] [address] [place], [address] Glucose [Mass/Vol] 83 mg/dL Normal 70-99 [facility] Comment on above: Order Comment: N Performed By: #### L 506.0200 #### [facility] [address] [place], [address] Potassium [Moles/Vol] 5.1 mmol/L Normal 3.3-5.1 [facility] Comment on above: Order Comment: N Result Comment: Hemo lysis present, Results??could be affected. ?? Performed By: #### L 506.0200 #### [facility] [address] [place], [address] Sodium [Moles/Vol] 136 mmol/L Normal 133-145 [facility] Comment on above: Order Comment: N Performed By: #### L 506.0200 #### [facility] [address] [place], [address] Urea nitrogen [Mass/Vol] 25 mg/dL High 4-19 [facility] Comment on above: Order Comment: N Performed By: #### L 506.0200 #### [facility] [address] [place], [address] CBC-Complete Blood Cnt No Di ffon 12-04-2024 Erythrocyte distribution width (RBC) [Ratio] 16.2 % High 11.6-14.6 [facility] Comment on above: Order Comment: N Performed By: #### L 506.0200 #### [facility] [address] [place], [address] Hematocrit (Bld) [Volume fraction] 33.8 % Low 37-47 [facility] Comment on above: Order Comment: N Performed By: #### L 506.0200 #### [facility] [address] [place], [address] Hemoglobin (Bld) [Mass/Vol] 11.2 g/dL Low 12.0-15.0 [facility] Comment on above: Order Comment: N Performed By: #### L 506.0200 #### [facility] [address] [place], [address] MCH (RBC) [Entitic mass] 29.3 pg Normal 27.0-32.0 [facility] Comment on above: Order Comment: N Performed By: #### L 506.0200 #### [facility] [address] [place], [address] MCHC (RBC) [Mass/Vol] 33.1 g/dL Normal 32-36 [facility] Comment on above: Order Comment: N Performed By: #### L 506.0200 #### [facility] [address] [place], [address] MCV (RBC) [Entitic vol] 88.5 fL Normal 81-99 [facility] Comment on above: Order Comment: N Performed By: #### L 506.0200 #### [facility] [address] [place], [address] Platelet mean volume (Bld) [Entitic vol] 11.2 fL Normal 6.2-12.0 [facility] Comment on above: Order Comment: N Performed By: #### L 506.0200 #### [facility] [address] [place], [address] Platelets (Bld) [#/Vol] 119 10*3/uL Low 150-450 [facility] Comment on above: Order Comment: N Performed By: #### L 506.0200 #### [facility] [address] [place], [address] RBC (Bld) [#/Vol] 3.82 10*6/uL Low 4.2-5.4 [facility] Comment on above: Order Comment: N Performed By: #### L 506.0200 #### [facility] [address] [place], [address] RDW SD 52.9 fl High 35.1-43.9 [facility] Comment on above: Order Comment: N Performed By: #### L 506.0200 #### [facility] [address] [place], [address] WBC (Bld) [#/Vol] 3.1 10*3/uL Low 4.4-11.0 [facility] Comment on above: Order Comment: N Performed By: #### L 506.0200 #### [facility] [address] [place], [address] Carbon dioxide, total [Moles /volume] in Central venous bloodOrdered By: Malathi Tomas on 12-04-2024 CO2 [Moles/Vol] 23.5 mmol/L 21.0-32.0 [facility] Chloride assayOrdered By: Tao Tomas on 12-04-2024 Chloride [Moles/Vol] 103 mmol/L 98-108 [facility] Erythrocyte distribution wid th ratioOrdered By: Malathi Tomas on 12-04-2024 Erythrocyte distribution width (RBC) [Ratio] 16.2 % High 11.6-14.6 [facility] Erythrocyte distribution wid th standard deviationOrdered By: Malathi Tomas on 12-04-2024 Erythrocyte distribution width (RBC) [Ratio] 52.9 fl High 35.1-43.9 [facility] Glomerular filtration rate ( GFR) estimation/1.73 sq m using serum, plasma, or whole bOrdered By: Malathi Tomas on 12-04-2024 GFR/1.73 sq M.predicted among non-blacks MDRD (S/P/Bld) [Vol rate/Area] 52 mL/min/{1.73_m2} Low >60 [facility] Comment on above: mL/min/1.73m2 CKD-EP I Creatinine Equation (2020) Hematocrit Auto (Bld) [Volum e fraction]Ordered By: Malathi Tomas on 12-04-2024 Hematocrit (Bld) [Volume fraction] 33.8 % Low 37-47 [facility] Hemoglobin measurementOrdere d By: Malathi Tomas on 12-04-2024 Hemoglobin (Bld) [Mass/Vol] 11.2 g/dL Low 12.0-15.0 [facility] MCV (mean corpuscular volume ) determinationOrdered By: Malathi Tomas on 12-04-2024 MCV (RBC) [Entitic vol] 88.5 fL 81-99 [facility] Magnesiumon 12-04-2024 Magnesium [Mass/Vol] 2.3 mg/dL High 1.5-2.2 [facility] Comment on above: Order Comment: N Performed By: #### L 506.0200 #### [facility] [address] [place], [place] [address], [id number] Magnesium measurement (mass/ volume)Ordered By: Malathi Tomas on 12-04-2024 Magnesium (Unsp spec) [Mass/Vol] 2.3 mg/dL High 1.5-2.2 [facility] Mean corpuscular hemoglobin (MCH) determinationOrdered By: Malathi Tomas on 12-04-2024 MCH (RBC) [Entitic mass] 29.3 pg 27.0-32.0 [facility] Mean corpuscular hemoglobin concentration (MCHC) determinationOrdered By: Malathi Tomas on 12-04-2024 MCHC (RBC) [Mass/Vol] 33.1 g/dL 32-36 [facility] Mean platelet volume determi nationOrdered By: Malathi Tomas on 12-04-2024 Platelet mean volume (Bld) [Entitic vol] 11.2 fL 6.2-12.0 [facility] Platelet countOrdered By: Tao Tomas on 12-04-2024 Platelets (Bld) [#/Vol] 119 10*3/uL Low 150-450 [facility] Potassium measurement (mass/ volume)Ordered By: Malathi Tomas on 12-04-2024 Potassium (Unsp spec) [Mass/Vol] 5.1 mmol/L 3.3-5.1 [facility] Comment on above: Hemolysis present, R esults could be affected. RBC Auto (Bld) [#/Vol]Ordere d By: Malathi Tomas on 12-04-2024 RBC (Bld) [#/Vol] 3.82 10*6/uL Low 4.2-5.4 [facility] Serum creatinine measurement (mass/volume)Ordered By: Malathi Tomas on 12-04-2024 Creatinine [Mass/Vol] 1.13 mg/dL 0.70-1.20 [facility] Serum glucose measurement (m ass/volume)Ordered By: Malathi Tomas on 12-04-2024 Glucose [Mass/Vol] 83 mg/dL 70-99 [facility] Serum or plasma calcium kim urement (mass/volume)Ordered By: Malathi Tomas on 12-04-2024 Calcium [Mass/Vol] 9.4 mg/dL 7.6-11.0 [facility] Serum or plasma urea nitroge n measurement (mass/volume)Ordered By: Malathi Tomas on 12-04-2024 Urea nitrogen [Mass/Vol] 25 mg/dL High 4-19 [facility] Sodium levelOrdered By: Marie Tomas on 12-04-2024 Sodium [Moles/Vol] 136 mmol/L 133-145 [facility] White blood cell (WBC) count Ordered By: Malathi Tomas on 12-04-2024 WBC (Bld) [#/Vol] 3.1 10*3/uL Low 4.4-11.0 [facility] Anion gap in Serum or Plasma Ordered By: Malathi Tomas on 11-26-2024 Anion gap [Moles/Vol] 12 mmol/L 5-15 [facility] BUN/creatinine ratioOrdered By: Malathi Tomas on 11-26-2024 Urea nitrogen/Creatinine [Mass ratio] 19.5 mg/mg - [facility] Basic Metabolic Profile (BMP )on 11-26-2024 BUN/CRE 19.5 RATIO Normal - [facility] Comment on above: Order Comment: 134 Performed By: #### L 500.4050, L506.1000, L501.9985, L100.0100 #### [facility] [address] [place], [address] Calcium [Mass/Vol] 9.3 mg/dL Normal 7.6-11.0 [facility] Comment on above: Order Comment: 134 Performed By: #### L 500.4050, L506.1000, L501.9985, L100.0100 #### [facility] [address] [place], [address] Chloride [Moles/Vol] 106 mmol/L Normal 98-108 [facility] Comment on above: Order Comment: 134 Performed By: #### L 500.4050, L506.1000, L501.9985, L100.0100 #### [facility] [address] [place], [address] CO2 [Moles/Vol] 22.9 mmol/L Normal 21.0-32.0 [facility] Comment on above: Order Comment: 134 Performed By: #### L 500.4050, L506.1000, L501.9985, L100.0100 #### [facility] [address] [place], [address] Creatinine [Mass/Vol] 0.95 mg/dL Normal 0.70-1.20 [facility] Comment on above: Order Comment: 134 Performed By: #### L 500.4050, L506.1000, L501.9985, L100.0100 #### [facility] [address] [place], [address] GAP 12 Normal 5-15 [facility] Comment on above: Order Comment: 134 Performed By: #### L 500.4050, L506.1000, L501.9985, L100.0100 #### [facility] [address] [place], [address] GFR/1.73 sq M.predicted among non-blacks MDRD (S/P/Bld) [Vol rate/Area] 64 mL/min/{1.73_m2} Normal >60 [facility] Comment on above: Order Comment: 134 Result Comment: mL/m in/1.73m2 CKD-EPI Creatinine Equation (2020) Performed By: #### L 500.4050, L506.1000, L501.9985, L100.0100 #### [facility] [address] [place], [address] Glucose [Mass/Vol] 89 mg/dL Normal 70-99 [facility] Comment on above: Order Comment: 134 Performed By: #### L 500.4050, L506.1000, L501.9985, L100.0100 #### [facility] [address] [place], [address] Potassium [Moles/Vol] 4.5 mmol/L Normal 3.3-5.1 [facility] Comment on above: Order Comment: 134 Performed By: #### L 500.4050, L506.1000, L501.9985, L100.0100 #### [facility] [address] [place], [address] Sodium [Moles/Vol] 140 mmol/L Normal 133-145 [facility] Comment on above: Order Comment: 134 Performed By: #### L 500.4050, L506.1000, L501.9985, L100.0100 #### [facility] [address] [place], [address] Urea nitrogen [Mass/Vol] 18 mg/dL Normal 4-19 [facility] Comment on above: Order Comment: 134 Performed By: #### L 500.4050, L506.1000, L501.9985, L100.0100 #### [facility] [address] [place], [address] Carbon dioxide, total [Moles /volume] in Central venous bloodOrdered By: Malathi Tomas on 11-26-2024 CO2 [Moles/Vol] 22.9 mmol/L 21.0-32.0 [facility] Chloride assayOrdered By: Tao Tomas on 11-26-2024 Chloride [Moles/Vol] 106 mmol/L 98-108 [facility] Glomerular filtration rate ( GFR) estimation/1.73 sq m using serum, plasma, or whole bOrdered By: Malathi Tomas on 11-26-2024 GFR/1.73 sq M.predicted among non-blacks MDRD (S/P/Bld) [Vol rate/Area] 64 mL/min/{1.73_m2} >60 [facility] Comment on above: mL/min/1.73m2 CKD-EP I Creatinine Equation (2020) Magnesiumon 11-26-2024 Magnesium [Mass/Vol] 2.2 mg/dL Normal 1.5-2.2 [facility] Comment on above: Order Comment: 134 Performed By: #### L 500.4050, L506.1000, L501.9985, L100.0100 #### [facility] [address] [place], [address] Magnesium measurement (mass/ volume)Ordered By: Malathi Tomas on 11-26-2024 Magnesium (Unsp spec) [Mass/Vol] 2.2 mg/dL 1.5-2.2 [facility] Potassium measurement (mass/ volume)Ordered By: Malathi Tomas on 11-26-2024 Potassium (Unsp spec) [Mass/Vol] 4.5 mmol/L 3.3-5.1 [facility] Serum creatinine measurement (mass/volume)Ordered By: Malathi Tomas on 11-26-2024 Creatinine [Mass/Vol] 0.95 mg/dL 0.70-1.20 [facility] Serum glucose measurement (m ass/volume)Ordered By: Malathi Tomas on 11-26-2024 Glucose [Mass/Vol] 89 mg/dL 70-99 [facility] Serum or plasma calcium kim urement (mass/volume)Ordered By: Malathi Tomas on 11-26-2024 Calcium [Mass/Vol] 9.3 mg/dL 7.6-11.0 [facility] Serum or plasma urea nitroge n measurement (mass/volume)Ordered By: Malathi Tomas on 11-26-2024 Urea nitrogen [Mass/Vol] 18 mg/dL 4-19 [facility] Sodium levelOrdered By: Marie Tomas on 11-26-2024 Sodium [Moles/Vol] 140 mmol/L 133-145 [facility] Basic Metabolic Profile (BMP )on 11-07-2024 BUN/CRE 19.5 RATIO Normal 10-20 [facility] Comment on above: Order Comment: 134 Performed By: #### L 500.4050, L506.1000, L501.9985, L100.0100 #### [facility] [address] [place], [address] Calcium [Mass/Vol] 9.0 mg/dL Normal 7.6-11.0 [facility] Comment on above: Order Comment: 134 Performed By: #### L 500.4050, L506.1000, L501.9985, L100.0100 #### [facility] [address] [place], [address] Chloride [Moles/Vol] 103 mmol/L Normal 98-108 [facility] Comment on above: Order Comment: 134 Performed By: #### L 500.4050, L506.1000, L501.9985, L100.0100 #### [facility] [address] [place], [address] CO2 [Moles/Vol] 25.5 mmol/L Normal 21.0-32.0 [facility] Comment on above: Order Comment: 134 Performed By: #### L 500.4050, L506.1000, L501.9985, L100.0100 #### [facility] [address] [place], [address] Creatinine [Mass/Vol] 0.82 mg/dL Normal 0.70-1.20 [facility] Comment on above: Order Comment: 134 Performed By: #### L 500.4050, L506.1000, L501.9985, L100.0100 #### [facility] [address] [place], [address] GAP 10 Normal 5-15 [facility] Comment on above: Order Comment: 134 Performed By: #### L 500.4050, L506.1000, L501.9985, L100.0100 #### [facility] [address] [place], [address] GFR/1.73 sq M.predicted among non-blacks MDRD (S/P/Bld) [Vol rate/Area] 76 mL/min/{1.73_m2} Normal >60 [facility] Comment on above: Order Comment: 134 Result Comment: mL/m in/1.73m2 CKD-EPI Creatinine Equation (2020) Performed By: #### L 500.4050, L506.1000, L501.9985, L100.0100 #### [facility] [address] [place], [address] Glucose [Mass/Vol] 79 mg/dL Normal 70-99 [facility] Comment on above: Order Comment: 134 Performed By: #### L 500.4050, L506.1000, L501.9985, L100.0100 #### [facility] [address] [place], [address] Potassium [Moles/Vol] 4.1 mmol/L Normal 3.3-5.1 [facility] Comment on above: Order Comment: 134 Performed By: #### L 500.4050, L506.1000, L501.9985, L100.0100 #### [facility] [address] [place], [address] Sodium [Moles/Vol] 139 mmol/L Normal 133-145 [facility] Comment on above: Order Comment: 134 Performed By: #### L 500.4050, L506.1000, L501.9985, L100.0100 #### [facility] [address] [place], [address] Urea nitrogen [Mass/Vol] 16 mg/dL Normal 4-19 [facility] Comment on above: Order Comment: 134 Performed By: #### L 500.4050, L506.1000, L501.9985, L100.0100 #### [facility] [address] [place], [address] CBC W/Diff, Automatedon 06-0 4-2025 Absolute Lymph 1.04 X10 3/uL Normal 0.83-4.51 [facility] Comment on above: Order Comment: 134 Performed By: #### L 500.4050, L506.1000, L501.9985, L100.0100 #### [facility] [address] [place], [address] Absolute Neut 2.2 X10 3/uL Normal 2.0-7.7 [facility] Comment on above: Order Comment: 134 Performed By: #### L 500.4050, L506.1000, L501.9985, L100.0100 #### [facility] [address] [place], [address] Basophils/100 WBC (Bld) 0.8 % Normal 0-1 [facility] Comment on above: Order Comment: 134 Performed By: #### L 500.4050, L506.1000, L501.9985, L100.0100 #### [facility] [address] [place], [address] Eosinophils/100 WBC (Bld) 3.2 % Normal 0-5 [facility] Comment on above: Order Comment: 134 Performed By: #### L 500.4050, L506.1000, L501.9985, L100.0100 #### [facility] [address] [place], [address] Erythrocyte distribution width (RBC) [Ratio] 15.9 % High 11.6-14.6 [facility] Comment on above: Order Comment: 134 Performed By: #### L 500.4050, L506.1000, L501.9985, L100.0100 #### [facility] [address] [place], [address] Hematocrit (Bld) [Volume fraction] 34.4 % Low 37-47 [facility] Comment on above: Order Comment: 134 Performed By: #### L 500.4050, L506.1000, L501.9985, L100.0100 #### [facility] [address] [place], [address] Hemoglobin (Bld) [Mass/Vol] 11.1 g/dL Low 12.0-15.0 [facility] Comment on above: Order Comment: 134 Performed By: #### L 500.4050, L506.1000, L501.9985, L100.0100 #### [facility] [address] [place], [address] IG% 0.500 Normal 0.0-0.9 [facility] Comment on above: Order Comment: 134 Result Comment: IG% - Immature Granulocytes (promyelocytes, myelocytes and metamyelocytes) > 1% indicates that a LEFT SHIFT is Present. Performed By: #### L 500.4050, L506.1000, L501.9985, L100.0100 #### [facility] [address] [place], [address] Lymphocytes/100 WBC (Bld) 27.4 % Normal 19-41 [facility] Comment on above: Order Comment: 134 Performed By: #### L 500.4050, L506.1000, L501.9985, L100.0100 #### [facility] [address] [place], [address] MCH (RBC) [Entitic mass] 28.3 pg Normal 27.0-32.0 [facility] Comment on above: Order Comment: 134 Performed By: #### L 500.4050, L506.1000, L501.9985, L100.0100 #### [facility] [address] [place], [address] MCHC (RBC) [Mass/Vol] 32.3 g/dL Normal 32-36 [facility] Comment on above: Order Comment: 134 Performed By: #### L 500.4050, L506.1000, L501.9985, L100.0100 #### [facility] [address] [place], [address] MCV (RBC) [Entitic vol] 87.8 fL Normal 81-99 [facility] Comment on above: Order Comment: 134 Performed By: #### L 500.4050, L506.1000, L501.9985, L100.0100 #### [facility] [address] [place], [address] Monocytes/100 WBC (Bld) 9.7 % Normal 0-10 [facility] Comment on above: Order Comment: 134 Performed By: #### L 500.4050, L506.1000, L501.9985, L100.0100 #### [facility] [address] [place], [address] Neutrophils/100 WBC (Bld) 58.4 % Normal 47-70 [facility] Comment on above: Order Comment: 134 Performed By: #### L 500.4050, L506.1000, L501.9985, L100.0100 #### [facility] [address] [place], [address] Nucleated RBC (Bld) [#/Vol] 0 10*3/uL Normal 0-5 [facility] Comment on above: Order Comment: 134 Performed By: #### L 500.4050, L506.1000, L501.9985, L100.0100 #### [facility] [address] [place], [address] Platelet mean volume (Bld) [Entitic vol] 10.7 fL Normal 6.2-12.0 [facility] Comment on above: Order Comment: 134 Performed By: #### L 500.4050, L506.1000, L501.9985, L100.0100 #### [facility] [address] [place], [address] Platelets (Bld) [#/Vol] 122 10*3/uL Low 150-450 [facility] Comment on above: Order Comment: 134 Performed By: #### L 500.4050, L506.1000, L501.9985, L100.0100 #### [facility] [address] [place], [address] RBC (Bld) [#/Vol] 3.92 10*6/uL Low 4.2-5.4 [facility] Comment on above: Order Comment: 134 Performed By: #### L 500.4050, L506.1000, L501.9985, L100.0100 #### [facility] [address] [place], [address] RDW SD 51.3 fl High 35.1-43.9 [facility] Comment on above: Order Comment: 134 Performed By: #### L 500.4050, L506.1000, L501.9985, L100.0100 #### [facility] [address] [place], [address] WBC (Bld) [#/Vol] 3.8 10*3/uL Low 4.4-11.0 [facility] Comment on above: Order Comment: 134 Performed By: #### L 500.4050, L506.1000, L501.9985, L100.0100 #### [facility] [facility] [address] [place], [address] Magnesiumon 11-07-2024 Magnesium [Mass/Vol] 2.1 mg/dL Normal 1.5-2.2 [facility] Comment on above: Order Comment: 134 Performed By: #### L 500.4050, L506.1000, L501.9985, L100.0100 #### [facility] [address] [place], [address] Basic Metabolic Profile (BMP )on 11-06-2024 BUN Normal 4-19 [facility] Comment on above: Order Comment: 134 Result Comment: QNS UTO X1 Performed By: #### L 500.4050, L506.1000, L501.9985, L100.0100 #### [facility] [address] [place], [address] BUN/CRE Normal 10-20 [facility] Comment on above: Order Comment: 134 Result Comment: QNS UTO X1 Performed By: #### L 500.4050, L506.1000, L501.9985, L100.0100 #### [facility] [address] [place], [address] Calcium Normal 7.6-11.0 [facility] Comment on above: Order Comment: 134 Result Comment: QNS UTO X1 Performed By: #### L 500.4050, L506.1000, L501.9985, L100.0100 #### [facility] [address] [place], [address] CL Normal 98-108 [facility] Comment on above: Order Comment: 134 Result Comment: QNS UTO X1 Performed By: #### L 500.4050, L506.1000, L501.9985, L100.0100 #### [facility] [address] [place], [address] CO2 Normal 21.0-32.0 [facility] Comment on above: Order Comment: 134 Result Comment: QNS UTO X1 Performed By: #### L 500.4050, L506.1000, L501.9985, L100.0100 #### [facility] [address] [place], [address] CREAT,SERUM Normal 0.70-1.20 [facility] Comment on above: Order Comment: 134 Result Comment: QNS UTO X1 Performed By: #### L 500.4050, L506.1000, L501.9985, L100.0100 #### [facility] [address] [place], [address] eGFR Normal >60 [facility] Comment on above: Order Comment: 134 Result Comment: QNS UTO X1 Performed By: #### L 500.4050, L506.1000, L501.9985, L100.0100 #### [facility] [address] [place], [address] GAP Normal 5-15 [facility] Comment on above: Order Comment: 134 Result Comment: QNS UTO X1 Performed By: #### L 500.4050, L506.1000, L501.9985, L100.0100 #### [facility] [address] [place], [address] GLU Normal 70-99 [facility] Comment on above: Order Comment: 134 Result Comment: QNS UTO X1 Performed By: #### L 500.4050, L506.1000, L501.9985, L100.0100 #### [facility] [address] [place], [address] Potassium Normal 3.3-5.1 [facility] Comment on above: Order Comment: 134 Result Comment: QNS UTO X1 Performed By: #### L 500.4050, L506.1000, L501.9985, L100.0100 #### [facility] [address] [place], [address] Basic Metabolic Profile (BMP) Normal 133-145 [facility] Comment on above: Order Comment: 134 Result Comment: QNS UTO X1 Performed By: #### L 500.4050, L506.1000, L501.9985, L100.0100 #### [facility] [address] [place], [address] CBC W/Diff, Automatedon 06-0 -2024 Absolute Neut Normal 2.0-7.7 [facility] Comment on above: Order Comment: 134 Result Comment: QNS UTO X1 Performed By: #### L 500.4050, L506.1000, L501.9985, L100.0100 #### [facility] [address] [place], [address] HCT Normal 37-47 [facility] Comment on above: Order Comment: 134 Result Comment: QNS UTO X1 Performed By: #### L 500.4050, L506.1000, L501.9985, L100.0100 #### [facility] [address] [place], [address] HGB Normal 12.0-15.0 [facility] Comment on above: Order Comment: 134 Result Comment: QNS UTO X1 Performed By: #### L 500.4050, L506.1000, L501.9985, L100.0100 #### [facility] [address] [place], [address] MCH Normal 27.0-32.0 [facility] Comment on above: Order Comment: 134 Result Comment: QNS UTO X1 Performed By: #### L 500.4050, L506.1000, L501.9985, L100.0100 #### [facility] [address] [place], [address] MCHC Normal 32-36 [facility] Comment on above: Order Comment: 134 Result Comment: QNS UTO X1 Performed By: #### L 500.4050, L506.1000, L501.9985, L100.0100 #### [facility] [address] [place], [address] MCV Normal 81-99 [facility] Comment on above: Order Comment: 134 Result Comment: QNS UTO X1 Performed By: #### L 500.4050, L506.1000, L501.9985, L100.0100 #### [facility] [address] [place], [address] NEUT% Normal 47-70 [facility] Comment on above: Order Comment: 134 Result Comment: QNS UTO X1 Performed By: #### L 500.4050, L506.1000, L501.9985, L100.0100 #### [facility] [address] [place], [address] PLT Normal 150-450 [facility] Comment on above: Order Comment: 134 Result Comment: QNS UTO X1 Performed By: #### L 500.4050, L506.1000, L501.9985, L100.0100 #### [facility] [address] [place], [address] RBC Normal 4.2-5.4 [facility] Comment on above: Order Comment: 134 Result Comment: QNS UTO X1 Performed By: #### L 500.4050, L506.1000, L501.9985, L100.0100 #### [facility] [address] [place], [address] RDW CV Normal 11.6-14.6 [facility] Comment on above: Order Comment: 134 Result Comment: QNS UTO X1 Performed By: #### L 500.4050, L506.1000, L501.9985, L100.0100 #### [facility] [address] [place], [address] RDW SD Normal 35.1-43.9 [facility] Comment on above: Order Comment: 134 Result Comment: QNS UTO X1 Performed By: #### L 500.4050, L506.1000, L501.9985, L100.0100 #### [facility] [address] [place], [address] WBC Normal 4.4-11.0 [facility] Comment on above: Order Comment: 134 Result Comment: QNS UTO X1 Performed By: #### L 500.4050, L506.1000, L501.9985, L100.0100 #### [facility] [address] [place], [address] Lamotrigine (Lamictal) Level on 11-02-2024 LAMOTRIGINE 8.5 ug/mL Normal 2.0-20.0 [facility] Comment on above: Order Comment: 134 Result Comment: Dete ction Limit = 1.0 Performed at: [address] [id number] Gaming Worker: Cody Llanos MD, Phone: [phone] Performed By: #### L 500.4050, L506.1000, L501.9985, L100.0100 #### [facility] [address] [place], [address] Trileptal-Oxcarbazepineon OXCARBAZEPINE 5 ug/mL Low 10-35 [facility] Comment on above: Order Comment: 134 Result Comment: This test was developed and its performance characteristics determined by [facility]. It has not been cleared or approved by the Food and Drug Administration. Detection Limit = 1 Performed By: #### L 500.4050, L506.1000, L501.9985, L100.0100 #### [facility] [address] [place], [address] CRPon 11-01-2024 C-REACTIVE PROT 14.10 mg/L High 0.0-3.0 [facility] Comment on above: Performed By: #### L 501.6710, L501.1400 #### [facility] [address] [place], [address] Uric Acidon 11-01-2024 URIC 5.6 mg/dL Normal 2.6-6.0 [facility] Comment on above: Result Comment: The drugs N-Acetylcysteine and Metamizole may falsely depress this assay. Performed By: #### L 501.6710, L501.1400 #### [facility] [address] [place], [address] Hemoglobin A1con 10-30-2024 HbA1c (Bld) [Mass fraction] 7.1 % High <=5.6 [facility] Comment on above: Order Comment: 134 Result Comment: Norm al < 5.7 % Prediabetic 5.7 - 6.4 % Diabetic >or= 6.5 % Please note range changes. Performed By: #### L 500.4050, L506.1000, L501.9985, L100.0100 #### [facility] [address] [place], [address] Lipid Profileon 10-30-2024 CHOL:HDL 1.80 Normal [facility] Comment on above: Order Comment: 134 Performed By: #### L 500.4050, L506.1000, L501.9985, L100.0100 #### [facility] [address] [place], [address] Cholesterol [Mass/Vol] 99 mg/dL Normal <=200 [facility] Comment on above: Order Comment: 134 Result Comment: Chol esterol level, Desirable <200 mg/dL Borderline high cholesterol 200-239 mg/dL High cholesterol >=240 mg/dL Recommendations of the NCEP Adult Treatment Panel for the following risk-cutoff thresholds for the [place] population. Performed By: #### L 500.4050, L506.1000, L501.9985, L100.0100 #### [facility] [address] [place], [address] Cholesterol in HDL [Mass/Vol] 55 mg/dL Normal [facility] Comment on above: Order Comment: 134 Result Comment: Linda onal Cholesterol Education Program (NCEP) guidelines: <40 mg/dL: Low HDL-cholesterol (major risk factor for CHD) >= 60 mg/dL: High HDL-cholesterol (negative risk factor for CHD) HDL-cholesterol is affected by a number of factors, e.g. smoking, exercise, hormones, sex and age. Performed By: #### L 500.4050, L506.1000, L501.9985, L100.0100 #### [facility] [address] [place], [address] Cholesterol in LDL [Mass/Vol] 34 mg/dL Normal [facility] Comment on above: Order Comment: 134 Result Comment: Bord likxgk=215-647 mg/dL Higher Qdwc=095 mg/dL or greater Performed By: #### L 500.4050, L506.1000, L501.9985, L100.0100 #### [facility] [address] [place], [address] Cholesterol in VLDL [Mass/Vol] 10 mg/dL Normal 5-40 [facility] Comment on above: Order Comment: 134 Performed By: #### L 500.4050, L506.1000, L501.9985, L100.0100 #### [facility] [address] [place], [address] Triglyceride [Mass/Vol] 51 mg/dL Normal [facility] Comment on above: Order Comment: 134 Result Comment: The drugs N-Acetylcysteine and Metamizole may falsely depress this assay. Normal range: <150 mg/dL Borderline High: 150-199 mg/dL High: 200-499 mg/dL Very High: >500 mg/dL Performed By: #### L 500.4050, L506.1000, L501.9985, L100.0100 #### [facility] [address] [place], [address] Vitamin D,25 Hydroxyon 10-30 Vitamin D 25-OH 22.0 ng/mL Low 30-100 [facility] Comment on above: Order Comment: 134 Result Comment: Maricarmen min D Status Deficiency: <20 ng/mL (50nmol/L) Insufficiency: 20-30 ng/mL (50-75 nmol/L) Sufficiency: 30-100 ng/mL (75-250 nmol/L) Toxicity: >100 ng/mL (>250 nmol/L) Performed By: #### L 500.4050, L506.1000, L501.9985, L100.0100 #### [facility] [address] [place], [address] CBC-Complete Blood Cnt No Di ffon 10-25-2024 Erythrocyte distribution width (RBC) [Ratio] 15.7 % High 11.6-14.6 [facility] Comment on above: Order Comment: 134 Performed By: #### L 500.4050, L506.1000, L501.9985, L100.0100 #### [facility] [address] [place], [address] Hematocrit (Bld) [Volume fraction] 39.5 % Normal 37-47 [facility] Comment on above: Order Comment: 134 Performed By: #### L 500.4050, L506.1000, L501.9985, L100.0100 #### [facility] [address] [place], [address] Hemoglobin (Bld) [Mass/Vol] 13.0 g/dL Normal 12.0-15.0 [facility] Comment on above: Order Comment: 134 Performed By: #### L 500.4050, L506.1000, L501.9985, L100.0100 #### [facility] [address] [place], [address] MCH (RBC) [Entitic mass] 29.1 pg Normal 27.0-32.0 [facility] Comment on above: Order Comment: 134 Performed By: #### L 500.4050, L506.1000, L501.9985, L100.0100 #### [facility] [address] [place], [address] MCHC (RBC) [Mass/Vol] 32.9 g/dL Normal 32-36 [facility] Comment on above: Order Comment: 134 Performed By: #### L 500.4050, L506.1000, L501.9985, L100.0100 #### [facility] [address] [place], [address] MCV (RBC) [Entitic vol] 88.4 fL Normal 81-99 [facility] Comment on above: Order Comment: 134 Performed By: #### L 500.4050, L506.1000, L501.9985, L100.0100 #### [facility] [address] [place], [address] Platelet mean volume (Bld) [Entitic vol] 11.9 fL Normal 6.2-12.0 [facility] Comment on above: Order Comment: 134 Performed By: #### L 500.4050, L506.1000, L501.9985, L100.0100 #### [facility] [address] [place], [address] Platelets (Bld) [#/Vol] 104 10*3/uL Low 150-450 [facility] Comment on above: Order Comment: 134 Performed By: #### L 500.4050, L506.1000, L501.9985, L100.0100 #### [facility] [address] [place], [address] RBC (Bld) [#/Vol] 4.47 10*6/uL Normal 4.2-5.4 [facility] Comment on above: Order Comment: 134 Performed By: #### L 500.4050, L506.1000, L501.9985, L100.0100 #### [facility] [address] [place], [address] RDW SD 51.5 fl High 35.1-43.9 [facility] Comment on above: Order Comment: 134 Performed By: #### L 500.4050, L506.1000, L501.9985, L100.0100 #### [facility] [address] [place], [address] WBC (Bld) [#/Vol] 6.3 10*3/uL Normal 4.4-11.0 [facility] Comment on above: Order Comment: 134 Performed By: #### L 500.4050, L506.1000, L501.9985, L100.0100 #### [facility] [address] [place], [address] Comprehensive Metabolic Prof [facility] 10-25-2024 Albumin [Mass/Vol] 3.8 g/dL Normal 3.4-4.8 [facility] Comment on above: Order Comment: 134 Performed By: #### L 500.4050, L506.1000, L501.9985, L100.0100 #### [facility] [address] [place], [address] Albumin/Globulin [Mass ratio] 0.9 {ratio} Normal 0.9-2.4 [facility] Comment on above: Order Comment: 134 Performed By: #### L 500.4050, L506.1000, L501.9985, L100.0100 #### [facility] [address] [place], [address] ALK PHOS 117 U/L High 35-104 [facility] Comment on above: Order Comment: 134 Performed By: #### L 500.4050, L506.1000, L501.9985, L100.0100 #### [facility] [address] [place], [address] ALT [Catalytic activity/Vol] 37 U/L High <=34 [facility] Comment on above: Order Comment: 134 Performed By: #### L 500.4050, L506.1000, L501.9985, L100.0100 #### [facility] [address] [place], [address] AST [Catalytic activity/Vol] 44 U/L High <=31 [facility] Comment on above: Order Comment: 134 Performed By: #### L 500.4050, L506.1000, L501.9985, L100.0100 #### [facility] [address] [place], [address] Bilirubin [Mass/Vol] 0.50 mg/dL Normal 0.00-1.30 [facility] Comment on above: Order Comment: 134 Performed By: #### L 500.4050, L506.1000, L501.9985, L100.0100 #### [facility] [address] [place], [address] BUN/CRE 25.5 RATIO High 10-20 [facility] Comment on above: Order Comment: 134 Performed By: #### L 500.4050, L506.1000, L501.9985, L100.0100 #### [facility] [address] [place], [address] Calcium [Mass/Vol] 9.4 mg/dL Normal 7.6-11.0 [facility] Comment on above: Order Comment: 134 Performed By: #### L 500.4050, L506.1000, L501.9985, L100.0100 #### [facility] [address] [place], [address] Chloride [Moles/Vol] 101 mmol/L Normal 98-108 [facility] Comment on above: Order Comment: 134 Performed By: #### L 500.4050, L506.1000, L501.9985, L100.0100 #### [facility] [address] [place], [address] CO2 [Moles/Vol] 23.5 mmol/L Normal 21.0-32.0 [facility] Comment on above: Order Comment: 134 Performed By: #### L 500.4050, L506.1000, L501.9985, L100.0100 #### [facility] [address] [place], [address] Creatinine [Mass/Vol] 0.93 mg/dL Normal 0.70-1.20 [facility] Comment on above: Order Comment: 134 Performed By: #### L 500.4050, L506.1000, L501.9985, L100.0100 #### [facility] [address] [place], [address] GAP 10 Normal 5-15 [facility] Comment on above: Order Comment: 134 Performed By: #### L 500.4050, L506.1000, L501.9985, L100.0100 #### [facility] [address] [place], [address] GFR/1.73 sq M.predicted among non-blacks MDRD (S/P/Bld) [Vol rate/Area] 65 mL/min/{1.73_m2} Normal >60 [facility] Comment on above: Order Comment: 134 Result Comment: mL/m in/1.73m2 CKD-EPI Creatinine Equation (2020) Performed By: #### L 500.4050, L506.1000, L501.9985, L100.0100 #### [facility] [address] [place], [address] Globulin (S) [Mass/Vol] 4.4 g/dL High 2.2-4.2 [facility] Comment on above: Order Comment: 134 Performed By: #### L 500.4050, L506.1000, L501.9985, L100.0100 #### [facility] [address] [place], [address] Glucose [Mass/Vol] 147 mg/dL High 70-99 [facility] Comment on above: Order Comment: 134 Performed By: #### L 500.4050, L506.1000, L501.9985, L100.0100 #### [facility] [address] [place], [address] Potassium [Moles/Vol] 4.7 mmol/L Normal 3.3-5.1 [facility] Comment on above: Order Comment: 134 Performed By: #### L 500.4050, L506.1000, L501.9985, L100.0100 #### [facility] [address] [place], [address] Sodium [Moles/Vol] 134 mmol/L Normal 133-145 [facility] Comment on above: Order Comment: 134 Performed By: #### L 500.4050, L506.1000, L501.9985, L100.0100 #### [facility] [address] [place], [address] T PROT 8.2 g/dL Normal 5.9-8.4 [facility] Comment on above: Order Comment: 134 Performed By: #### L 500.4050, L506.1000, L501.9985, L100.0100 #### [facility] [address] [place], [address] Urea nitrogen [Mass/Vol] 24 mg/dL High 4-19 [facility] Comment on above: Order Comment: 134 Performed By: #### L 500.4050, L506.1000, L501.9985, L100.0100 #### [facility] [address] [place], [address] Urine Cultureon 10-14-2024 [facility] Urine Culture Urine Culture Escherichia coli Newton Count 80,000-100,000 Escherichia coli: REACTION Ampicillin Islt [...] TMP SMX Islt TRANG <=20 S Normal [facility] Comment on above: Performed By: #### L 501.080 #### [facility], [address] Basic Metabolic Profile (BMP )on 10-12-2024 BUN Normal 4-19 [facility] Comment on above: Result Comment: Canc elled via OM: Order cancelled - Patient discharged Performed By: #### L 500.4050, L506.1000, L501.9985, L100.0100 #### [facility] [address] [facility] [place], [address] BUN/CRE Normal 10-20 [facility] Comment on above: Result Comment: Canc elled via OM: Order cancelled - Patient discharged Performed By: #### L 500.4050, L506.1000, L501.9985, L100.0100 #### [facility] [address] [place], [address] Calcium Normal 7.6-11.0 [facility] Comment on above: Result Comment: Canc elled via OM: Order cancelled - Patient discharged Performed By: #### L 500.4050, L506.1000, L501.9985, L100.0100 #### [facility] [address] [place], [address] CL Normal 98-108 [facility] Comment on above: Result Comment: Canc elled via OM: Order cancelled - Patient discharged Performed By: #### L 500.4050, L506.1000, L501.9985, L100.0100 #### [facility] [address] [place], [address] CO2 Normal 21.0-32.0 [facility] Comment on above: Result Comment: Canc elled via OM: Order cancelled - Patient discharged Performed By: #### L 500.4050, L506.1000, L501.9985, L100.0100 #### [facility] [address] [place], [address] CREAT,SERUM Normal 0.70-1.20 [facility] Comment on above: Result Comment: Canc elled via OM: Order cancelled - Patient discharged Performed By: #### L 500.4050, L506.1000, L501.9985, L100.0100 #### [facility] [address] [place], [address] eGFR Normal >60 [facility] Comment on above: Result Comment: Canc elled via OM: Order cancelled - Patient discharged Performed By: #### L 500.4050, L506.1000, L501.9985, L100.0100 #### [facility] [address] [place], [address] GAP Normal 5-15 [facility] Comment on above: Result Comment: Canc elled via OM: Order cancelled - Patient discharged Performed By: #### L 500.4050, L506.1000, L501.9985, L100.0100 #### [facility] [address] [place], [address] GLU Normal 70-99 [facility] Comment on above: Result Comment: Canc elled via OM: Order cancelled - Patient discharged Performed By: #### L 500.4050, L506.1000, L501.9985, L100.0100 #### [facility] [address] [place], [address] Potassium Normal 3.3-5.1 [facility] Comment on above: Result Comment: Canc elled via OM: Order cancelled - Patient discharged Performed By: #### L 500.4050, L506.1000, L501.9985, L100.0100 #### [facility] [address] [place], [address] Basic Metabolic Profile (BMP) Normal 133-145 [facility] Comment on above: Result Comment: Canc elled via OM: Order cancelled - Patient discharged Performed By: #### L 500.4050, L506.1000, L501.9985, L100.0100 #### [facility] [address] [place], [address] CBC W/Diff, Automatedon 05-0 -2024 Absolute Neut Normal 2.0-7.7 [facility] Comment on above: Result Comment: Canc elled via OM: Order cancelled - Patient discharged Performed By: #### L 500.4050, L506.1000, L501.9985, L100.0100 #### [facility] [address] [place], [address] HCT Normal 37-47 [facility] Comment on above: Result Comment: Canc elled via OM: Order cancelled - Patient discharged Performed By: #### L 500.4050, L506.1000, L501.9985, L100.0100 #### [facility] [address] [place], [address] HGB Normal 12.0-15.0 [facility] Comment on above: Result Comment: Canc elled via OM: Order cancelled - Patient discharged Performed By: #### L 500.4050, L506.1000, L501.9985, L100.0100 #### [facility] [address] [place], [address] MCH Normal 27.0-32.0 [facility] Comment on above: Result Comment: Canc elled via OM: Order cancelled - Patient discharged Performed By: #### L 500.4050, L506.1000, L501.9985, L100.0100 #### [facility] [address] [place], [address] MCHC Normal 32-36 [facility] Comment on above: Result Comment: Canc elled via OM: Order cancelled - Patient discharged Performed By: #### L 500.4050, L506.1000, L501.9985, L100.0100 #### [facility] [address] [place], [address] MCV Normal 81-99 [facility] Comment on above: Result Comment: Canc elled via OM: Order cancelled - Patient discharged Performed By: #### L 500.4050, L506.1000, L501.9985, L100.0100 #### [facility] [address] [place], [address] NEUT% Normal 47-70 [facility] Comment on above: Result Comment: Canc elled via OM: Order cancelled - Patient discharged Performed By: #### L 500.4050, L506.1000, L501.9985, L100.0100 #### [facility] [address] [place], [address] PLT Normal 150-450 [facility] Comment on above: Result Comment: Canc elled via OM: Order cancelled - Patient discharged Performed By: #### L 500.4050, L506.1000, L501.9985, L100.0100 #### [facility] [address] [place], [address] RBC Normal 4.2-5.4 [facility] Comment on above: Result Comment: Canc elled via OM: Order cancelled - Patient discharged Performed By: #### L 500.4050, L506.1000, L501.9985, L100.0100 #### [facility] [address] [place], [address] RDW CV Normal 11.6-14.6 [facility] Comment on above: Result Comment: Canc elled via OM: Order cancelled - Patient discharged Performed By: #### L 500.4050, L506.1000, L501.9985, L100.0100 #### [facility] [address] [place], [address] RDW SD Normal 35.1-43.9 [facility] Comment on above: Result Comment: Canc elled via OM: Order cancelled - Patient discharged Performed By: #### L 500.4050, L506.1000, L501.9985, L100.0100 #### [facility] [address] [place], [address] WBC Normal 4.4-11.0 [facility] Comment on above: Result Comment: Canc elled via OM: Order cancelled - Patient discharged Performed By: #### L 500.4050, L506.1000, L501.9985, L100.0100 #### [facility] [address] [place], [address] Absolute lymphocyte countOrd ered By: Tyrell Page on 10-11-2024 Lymphocytes Auto (Unsp spec) [#/Vol] 1.20 10*3/uL 0.83-4.51 [facility] Absolute neutrophil countOrd ered By: Tyrell Page on 10-11-2024 Neutrophils (Bld) [#/Vol] 2.6 10*3/uL 2.0-7.7 [facility] Anion gap in Serum or Plasma Ordered By: Tyrell Page on 10-11-2024 Anion gap [Moles/Vol] 10 mmol/L 5-15 [facility] Automated lymphocyte count a s percentage of total leukocytesOrdered By: Tyrell Page on 10-11-2024 Lymphocytes/100 WBC Auto (Unsp spec) 26.8 % 19-41 [facility] BUN/creatinine ratioOrdered By: Tyrell Page on 10-11-2024 Urea nitrogen/Creatinine [Mass ratio] 28.3 mg/mg High 10-20 [facility] Basic Metabolic Profile (BMP )on 10-11-2024 BUN/CRE 28.3 RATIO High - [facility] Comment on above: Performed By: #### L 500.4050, L506.1000, L501.9985, L100.0100 #### [facility] [address] [place], [address] Calcium [Mass/Vol] 9.2 mg/dL Normal 7.6-11.0 [facility] Comment on above: Performed By: #### L 500.4050, L506.1000, L501.9985, L100.0100 #### [facility] [address] [place], [address] Chloride [Moles/Vol] 108 mmol/L Normal 98-108 [facility] Comment on above: Performed By: #### L 500.4050, L506.1000, L501.9985, L100.0100 #### [facility] [address] [place], [address] CO2 [Moles/Vol] 20.7 mmol/L Low 21.0-32.0 [facility] Comment on above: Performed By: #### L 500.4050, L506.1000, L501.9985, L100.0100 #### [facility] [address] [place], [address] Creatinine [Mass/Vol] 0.76 mg/dL Normal 0.70-1.20 [facility] Comment on above: Performed By: #### L 500.4050, L506.1000, L501.9985, L100.0100 #### [facility] [address] [place], [address] ECRCL 89.89 ml/min Normal 50-250 [facility] Comment on above: Performed By: #### L 500.4050, L506.1000, L501.9985, L100.0100 #### [facility] [address] [place], [address] GAP 10 Normal 5-15 [facility] Comment on above: Performed By: #### L 500.4050, L506.1000, L501.9985, L100.0100 #### [facility] [address] [place], [address] GFR/1.73 sq M.predicted among non-blacks MDRD (S/P/Bld) [Vol rate/Area] 84 mL/min/{1.73_m2} Normal >60 [facility] Comment on above: Result Comment: mL/m in/1.73m2 CKD-EPI Creatinine Equation (2020) Performed By: #### L 500.4050, L506.1000, L501.9985, L100.0100 #### [facility] [address] [place], [address] Glucose [Mass/Vol] 131 mg/dL High 70-99 [facility] Comment on above: Performed By: #### L 500.4050, L506.1000, L501.9985, L100.0100 #### [facility] [address] [place], [address] Potassium [Moles/Vol] 3.9 mmol/L Normal 3.3-5.1 [facility] Comment on above: Performed By: #### L 500.4050, L506.1000, L501.9985, L100.0100 #### [facility] [address] [place], [address] Sodium [Moles/Vol] 139 mmol/L Normal 133-145 [facility] Comment on above: Performed By: #### L 500.4050, L506.1000, L501.9985, L100.0100 #### [facility] [address] [place], [address] Urea nitrogen [Mass/Vol] 21 mg/dL High 4-19 [facility] Comment on above: Performed By: #### L 500.4050, L506.1000, L501.9985, L100.0100 #### [facility] [address] [place], [address] Basophil percentageOrdered B y: Tyrell Page on 10-11-2024 Basophils/100 WBC (Bld) 0.7 % 0-1 [facility] Bedside Glucoseon 10-11-2024 FINGERSTICK GLU 137 mg/dL High 74-106 [facility] Comment on above: Result Comment: ALINA ADAMSENT OF PATIENT CARE PER NURSING PROTOCOL Performed By: #### L 500.4050, L506.1000, L501.9985, L100.0100 #### [facility] [address] [place], [address] CBC W/Diff, Automatedon 050 PLT EST SLT DEC Normal ADEQ [facility] Comment on above: Performed By: #### L 500.4050, L506.1000, L501.9985, L100.0100 #### [facility] [address] [place], [address] Carbon dioxide, total [Moles /volume] in Central venous bloodOrdered By: Tyrell Page on 10-11-2024 CO2 [Moles/Vol] 20.7 mmol/L Low 21.0-32.0 [facility] Chloride assayOrdered By: Arabella Page on 10-11-2024 Chloride [Moles/Vol] 108 mmol/L 98-108 [facility] Eosinophil percentageOrdered By: Tyrell Page on 10-11-2024 Eosinophils/100 WBC (Bld) 5.1 % High 0-5 [facility] Erythrocyte distribution wid th ratioOrdered By: Tyrell Page on 10-11-2024 Erythrocyte distribution width (RBC) [Ratio] 16.0 % High 11.6-14.6 [facility] Erythrocyte distribution wid th standard deviationOrdered By: Tyrell Page on 10-11-2024 Erythrocyte distribution width (RBC) [Ratio] 50.8 fl High 35.1-43.9 [facility] Glomerular filtration rate ( GFR) estimation/1.73 sq m using serum, plasma, or whole bOrdered By: Tyrell Page on 10-11-2024 GFR/1.73 sq M.predicted among non-blacks MDRD (S/P/Bld) [Vol rate/Area] 84 mL/min/{1.73_m2} >60 [facility] Comment on above: mL/min/1.73m2 CKD-EP I Creatinine Equation (2020) [facility] deOrdered By: Tyrell Page on 10-11-2024 Glucose [Mass/Vol] 137 mg/dL High 74-106 [facility] Comment on above: MANAGEMENT OF PATIEN T CARE PER NURSING PROTOCOL Hematocrit Auto (Bld) [Volum e fraction]Ordered By: Tyrell Page on 10-11-2024 Hematocrit (Bld) [Volume fraction] 34.0 % Low 37-47 [facility] Hemoglobin measurementOrdere d By: Tyrell Page on 10-11-2024 Hemoglobin (Bld) [Mass/Vol] 11.3 g/dL Low 12.0-15.0 [facility] Immature granulocytes/100 WB C Auto (Bld)Ordered By: Tyrell Page on 10-11-2024 Immature granulocytes/100 WBC (Bld) 0.200 % 0.0-0.9 [facility] Comment on above: IG% - Immature Granu locytes (promyelocytes, myelocytes and metamyelocytes) > 1% indicates that a LEFT SHIFT is Present. MCV (mean corpuscular volume ) determinationOrdered By: Tyrell Page on 10-11-2024 MCV (RBC) [Entitic vol] 86.7 fL 81-99 [facility] Magnesiumon 10-11-2024 Magnesium [Mass/Vol] 2.1 mg/dL Normal 1.5-2.2 [facility] Comment on above: Performed By: #### L 506.0200 #### [facility] [address] [place], [place], [id number] Magnesium measurement (mass/ volume)Ordered By: Tyrell Page on 10-11-2024 Magnesium (Unsp spec) [Mass/Vol] 2.1 mg/dL 1.5-2.2 [facility] Mean corpuscular hemoglobin (MCH) determinationOrdered By: Tyrell Page on 10-11-2024 MCH (RBC) [Entitic mass] 28.8 pg 27.0-32.0 [facility] Mean corpuscular hemoglobin concentration (MCHC) determinationOrdered By: Tyrell Page on 10-11-2024 MCHC (RBC) [Mass/Vol] 33.2 g/dL 32-36 [facility] Mean platelet volume determi nationOrdered By: Tyrell Page on 10-11-2024 Platelet mean volume (Bld) [Entitic vol] 11.1 fL 6.2-12.0 [facility] Monocyte percentageOrdered B y: Tyrell Page on 10-11-2024 Monocytes/100 WBC (Bld) 9.8 % 0-10 [facility] Neutrophil percentageOrdered By: Tyrell Page on 10-11-2024 Neutrophils/100 WBC (Bld) 57.4 % 47-70 [facility] Nucleated red blood cell per centageOrdered By: Tyrell Page on 10-11-2024 Nucleated RBC/100 WBC (Bld) [Ratio] 0 % 0-5 [facility] Phosphoruson 10-11-2024 Phosphate [Mass/Vol] 3.7 mg/dL Normal 2.7-4.5 [facility] Comment on above: Performed By: #### L 506.0200 #### [facility] [address] [place], [place], [id number] Platelet countOrdered By: Arabella Page on 10-11-2024 Platelets (Bld) [#/Vol] 95 10*3/uL Low 150-450 [facility] Platelet estimateOrdered By: Tyrell Page on 10-11-2024 Platelets LM Ql (Bld) SLT DEC ADEQ [facility] Potassium measurement (mass/ volume)Ordered By: Tyrell Page on 10-11-2024 Potassium (Unsp spec) [Mass/Vol] 3.9 mmol/L 3.3-5.1 [facility] RBC Auto (Bld) [#/Vol]Ordere d By: Tyrell Page on 10-11-2024 RBC (Bld) [#/Vol] 3.92 10*6/uL Low 4.2-5.4 [facility] Serum creatinine measurement (mass/volume)Ordered By: Tyrell Page on 10-11-2024 Creatinine [Mass/Vol] 0.76 mg/dL 0.70-1.20 [facility] Serum glucose measurement (m ass/volume)Ordered By: Tyrell Page on 10-11-2024 Glucose [Mass/Vol] 131 mg/dL High 70-99 [facility] Serum or plasma calcium kim urement (mass/volume)Ordered By: Tyrell Page on 10-11-2024 Calcium [Mass/Vol] 9.2 mg/dL 7.6-11.0 [facility] Serum or plasma urea nitroge n measurement (mass/volume)Ordered By: Tyrell Page on 10-11-2024 Urea nitrogen [Mass/Vol] 21 mg/dL High 4-19 [facility] Sodium levelOrdered By: Nikunj Page on 10-11-2024 Sodium [Moles/Vol] 139 mmol/L 133-145 [facility] White blood cell (WBC) count Ordered By: Tyrell Page on 10-11-2024 WBC (Bld) [#/Vol] 4.5 10*3/uL 4.4-11.0 [facility] Bedside Glucoseon 10-10-2024 FINGERSTICK GLU 159 mg/dL High 74-106 [facility] Comment on above: Result Comment: ALINA GABRIEL OF PATIENT CARE PER NURSING PROTOCOL Performed By: #### L 500.4050, L506.1000, L501.9985, L100.0100 #### [facility] [address] [place], [address] FINGERSTICK GLU 196 mg/dL High 74-106 [facility] Comment on above: Result Comment: ALINA GEMENT OF PATIENT CARE PER NURSING PROTOCOL Performed By: #### L 500.4050, L506.1000, L501.9985, L100.0100 #### [facility] [address] [place], [address] FINGERSTICK GLU 165 mg/dL High 74-106 [facility] Comment on above: Result Comment: ALINA GEMENT OF PATIENT CARE PER NURSING PROTOCOL Performed By: #### L 501.080 #### [facility] [address] [place], [address] FINGERSTICK GLU 159 mg/dL High -106 [facility] Comment on above: Result Comment: ALINA GEMENT OF PATIENT CARE PER NURSING PROTOCOL Performed By: #### L 500.4050, L506.1000, L501.9985, L100.0100 #### [facility] [address] [place], [address] FINGERSTICK GLU 148 mg/dL High 74-106 [facility] Comment on above: Result Comment: ALINA GEMENT OF PATIENT CARE PER NURSING PROTOCOL Performed By: #### L 501.080 #### [facility] [address] [place], [address] Bilirubin, totalOrdered By: Missael Lomeli on 10-10-2024 Bilirubin [Mass/Vol] 0.68 mg/dL 0.00-1.30 [facility] CBC W/Diff, Automatedon 050 Absolute Lymph 1.03 X10 3/uL Normal 0.83-4.51 [facility] Comment on above: Performed By: #### L 506.0200 #### [facility] [address] [place], [address] Absolute Neut 3.4 X10 3/uL Normal 2.0-7.7 [facility] Comment on above: Performed By: #### L 506.0200 #### [facility] [address] [place], [address] Basophils/100 WBC (Bld) 0.6 % Normal 0-1 [facility] Comment on above: Performed By: #### L 506.0200 #### [facility] [address] [place], [address] Eosinophils/100 WBC (Bld) 5.1 % High 0-5 [facility] Comment on above: Performed By: #### L 506.0200 #### [facility] [address] [place], [address] Erythrocyte distribution width (RBC) [Ratio] 15.9 % High 11.6-14.6 [facility] Comment on above: Performed By: #### L 506.0200 #### [facility] [address] [place], [address] Hematocrit (Bld) [Volume fraction] 37.6 % Normal 37-47 [facility] Comment on above: Performed By: #### L 506.0200 #### [facility] [address] [place], [address] Hemoglobin (Bld) [Mass/Vol] 12.3 g/dL Normal 12.0-15.0 [facility] Comment on above: Performed By: #### L 506.0200 #### [facility] [address] [place], [address] IG% 0.200 Normal 0.0-0.9 [facility] Comment on above: Result Comment: IG% - Immature Granulocytes (promyelocytes, myelocytes and metamyelocytes) > 1% indicates that a LEFT SHIFT is Present. Performed By: #### L 506.0200 #### [facility] [address] [place], [address] Lymphocytes/100 WBC (Bld) 19.6 % Normal 19-41 [facility] Comment on above: Performed By: #### L 506.0200 #### [facility] [address] [place], [address] MCH (RBC) [Entitic mass] 28.8 pg Normal 27.0-32.0 [facility] Comment on above: Performed By: #### L 506.0200 #### [facility] [address] [place], [address] MCHC (RBC) [Mass/Vol] 32.7 g/dL Normal 32-36 [facility] Comment on above: Performed By: #### L 506.0200 #### [facility] [address] [place], [address] MCV (RBC) [Entitic vol] 88.1 fL Normal 81-99 [facility] Comment on above: Performed By: #### L 506.0200 #### [facility] [address] [place], [address] Monocytes/100 WBC (Bld) 9.1 % Normal 0-10 [facility] Comment on above: Performed By: #### L 506.0200 #### [facility] [address] [place], [address] Neutrophils/100 WBC (Bld) 65.4 % Normal 47-70 [facility] Comment on above: Performed By: #### L 506.0200 #### [facility] [address] [place], [address] Nucleated RBC (Bld) [#/Vol] 0 10*3/uL Normal 0-5 [facility] Comment on above: Performed By: #### L 506.0200 #### [facility] [address] [place], [address] Platelet mean volume (Bld) [Entitic vol] 11.7 fL Normal 6.2-12.0 [facility] Comment on above: Performed By: #### L 506.0200 #### [facility] [address] [place], [address] Platelets (Bld) [#/Vol] 100 10*3/uL Low 150-450 [facility] Comment on above: Performed By: #### L 506.0200 #### [facility] [address] [place], [address] RBC (Bld) [#/Vol] 4.27 10*6/uL Normal 4.2-5.4 [facility] Comment on above: Performed By: #### L 506.0200 #### [facility] [address] [place], [address] RDW SD 51.4 fl High 35.1-43.9 [facility] Comment on above: Performed By: #### L 506.0200 #### [facility] [address] [place], [address] WBC (Bld) [#/Vol] 5.3 10*3/uL Normal 4.4-11.0 [facility] Comment on above: Performed By: #### L 506.0200 #### [facility] [address] [place], [address] Calculated very low density lipoprotein (VLDL) cholesterol measurementOrdered By: Missael Lomlei on 10-10-2024 Calculated very low density lipoprotein (VLDL) cholesterol measurement 16 mg/dL 5-40 [facility] Comprehensive Metabolic Prof ilon 10-10-2024 Albumin [Mass/Vol] 3.5 g/dL Normal 3.4-4.8 [facility] Comment on above: Performed By: #### L 503.0106 #### [facility] [address] [place], [address] Albumin/Globulin [Mass ratio] 1.0 {ratio} Normal 0.9-2.4 [facility] Comment on above: Performed By: #### L 503.0106 #### [facility] [address] [place], [address] ALK PHOS 122 U/L High 35-104 [facility] Comment on above: Performed By: #### L 503.0106 #### [facility] [address] [place], [address] ALT [Catalytic activity/Vol] 23 U/L Normal <=34 [facility] Comment on above: Performed By: #### L 503.0106 #### [facility] [address] [place], [address] AST [Catalytic activity/Vol] 37 U/L High <=31 [facility] Comment on above: Result Comment: Hemo lysis present, Results??could be affected. ?? Performed By: #### L 503.0106 #### [facility] [address] [place], [address] Bilirubin [Mass/Vol] 0.68 mg/dL Normal 0.00-1.30 [facility] Comment on above: Performed By: #### L 503.0106 #### [facility] [address] [place], [address] BUN/CRE 25.4 RATIO High 10-20 [facility] Comment on above: Performed By: #### L 503.0106 #### [facility] [address] [place], [address] Calcium [Mass/Vol] 8.9 mg/dL Normal 7.6-11.0 [facility] Comment on above: Performed By: #### L 503.0106 #### [facility] [address] [place], [address] Chloride [Moles/Vol] 106 mmol/L Normal 98-108 [facility] Comment on above: Performed By: #### L 503.0106 #### [facility] [address] [place], [address] CO2 [Moles/Vol] 19.0 mmol/L Low 21.0-32.0 [facility] Comment on above: Performed By: #### L 503.0106 #### [facility] [address] [place], [address] Creatinine [Mass/Vol] 0.78 mg/dL Normal 0.70-1.20 [facility] Comment on above: Performed By: #### L 503.0106 #### [facility] [address] [place], [address] ECRCL 88.83 ml/min Normal 50-250 [facility] Comment on above: Performed By: #### L 503.0106 #### [facility] [address] [place], [address] GAP 13 Normal 5-15 [facility] Comment on above: Performed By: #### L 503.0106 #### [facility] [address] [place], [address] GFR/1.73 sq M.predicted among non-blacks MDRD (S/P/Bld) [Vol rate/Area] 81 mL/min/{1.73_m2} Normal >60 [facility] Comment on above: Result Comment: mL/m in/1.73m2 CKD-EPI Creatinine Equation (2020) Performed By: #### L 503.0106 #### [facility] [address] [place], [address] Globulin (S) [Mass/Vol] 3.7 g/dL Normal 2.2-4.2 [facility] Comment on above: Performed By: #### L 503.0106 #### [facility] [address] [place], [address] Glucose [Mass/Vol] 151 mg/dL High 70-99 [facility] Comment on above: Performed By: #### L 503.0106 #### [facility] [address] [place], [address] Potassium [Moles/Vol] 4.3 mmol/L Normal 3.3-5.1 [facility] Comment on above: Result Comment: Hemo lysis present, Results??could be affected. ?? Performed By: #### L 503.0106 #### [facility] [address] [place], [address] Sodium [Moles/Vol] 138 mmol/L Normal 133-145 [facility] Comment on above: Performed By: #### L 503.0106 #### [facility] [address] [place], [address] T PROT 7.2 g/dL Normal 5.9-8.4 [facility] Comment on above: Performed By: #### L 503.0106 #### [facility] [address] [place], [address] Urea nitrogen [Mass/Vol] 20 mg/dL High 4-19 [facility] Comment on above: Performed By: #### L 503.0106 #### [facility] [address] [place], [address] Folate [Moles/volume] in Ser um or PlasmaOrdered By: Missael Lomeli on 10-10-2024 Folate [Moles/Vol] 7.20 ng/mL 4.60-34.80 [facility] Comment on above: Hemolysis, Results w ill be affected, Requires Recollection. Folates,Serum (Folic Acid)on 10-10-2024 FOLATES,SERUM 7.20 ng/mL Normal 4.60-34.80 [facility] Comment on above: Order Comment: N Result Comment: Hemo lysis, Results will be affected, Requires Recollection. Performed By: #### L 506.0200 #### [facility] [address] [place], [place], [id number] Hemoglobin A1con 10-10-2024 HbA1c (Bld) [Mass fraction] 7.2 % High <=5.6 [facility] Comment on above: Result Comment: Norm al < 5.7 % Prediabetic 5.7 - 6.4 % Diabetic >or= 6.5 % Please note range changes. Performed By: #### L 503.0106 #### [facility] [address] [place], [place], [id number] LDL calc ser/plasOrdered By: Missael oLmeli on 10-10-2024 Cholesterol in LDL [Mass/Vol] 31 mg/dL [facility] Comment on above: Vmktxzesyc=491-948 m g/dL & Higher Nnuk=952 mg/dL or greater Laboratory - Chemistry and C hemistry - challengeOrdered By: Missael Lomeli on 10-10-2024 AST [Catalytic activity/Vol] 37 U/L High <32 [facility] Comment on above: Hemolysis present, R esults could be affected. Lipid Profileon 10-10-2024 CHOL:HDL 1.84 Normal [facility] Comment on above: Performed By: #### L 506.0200 #### [facility] [address] [place], [place], [id number] (059) Cholesterol [Mass/Vol] 103 mg/dL Normal <=200 [facility] Comment on above: Result Comment: Chol esterol level, Desirable <200 mg/dL Borderline high cholesterol 200-239 mg/dL High cholesterol >=240 mg/dL Recommendations of the NCEP Adult Treatment Panel for the following risk-cutoff thresholds for the [place] population. Performed By: #### L 506.0200 #### [facility] [address] [place], [place], [id number] (862) Cholesterol in HDL [Mass/Vol] 56 mg/dL Normal [facility] Comment on above: Result Comment: Linda onal Cholesterol Education Program (NCEP) guidelines: <40 mg/dL: Low HDL-cholesterol (major risk factor for CHD) >= 60 mg/dL: High HDL-cholesterol (negative risk factor for CHD) HDL-cholesterol is affected by a number of factors, e.g. smoking, exercise, hormones, sex and age. Performed By: #### L 506.0200 #### [facility] [address] [place], [address] Cholesterol in LDL [Mass/Vol] 31 mg/dL Normal [facility] Comment on above: Result Comment: Bord lyhsmk=572-039 mg/dL Higher Gxay=219 mg/dL or greater Performed By: #### L 506.0200 #### [facility] [address] [place], [address] Cholesterol in VLDL [Mass/Vol] 16 mg/dL Normal 5-40 [facility] Comment on above: Performed By: #### L 506.0200 #### [facility] [address] [place], [address] Triglyceride [Mass/Vol] 82 mg/dL Normal [facility] Comment on above: Result Comment: The drugs N-Acetylcysteine and Metamizole may falsely depress this assay. Normal range: <150 mg/dL Borderline High: 150-199 mg/dL High: 200-499 mg/dL Very High: >500 mg/dL Performed By: #### L 506.0200 #### [facility] [address] [place], [address] Phosphoruson 10-10-2024 Phosphate [Mass/Vol] 3.3 mg/dL Normal 2.7-4.5 [facility] Comment on above: Performed By: #### L 506.0200 #### [facility] [address] [place], [address] Screening total cholesterol/ high density lipoprotein (HDL) cholesterol ratioOrdered By: Missael Lomeli on 10-10-2024 Cholesterol.total/Cho lesterol in HDL [Mass ratio] 1.84 {ratio} [facility] Serum globulin measurementOr dered By: Missael Lomeli on 10-10-2024 Globulin (S) [Mass/Vol] 3.7 g/dL 2.2-4.2 [facility] Serum or plasma alanine burnette otransferase (ALT) measurementOrdered By: Missael Lomeli on 10-10-2024 ALT [Catalytic activity/Vol] 23 U/L <35 [facility] Serum or plasma albumin kim urement (mass/volume)Ordered By: Missael Lomeli on 10-10-2024 Albumin [Mass/Vol] 3.5 g/dL 3.4-4.8 [facility] Serum or plasma albumin/glob ulin mass ratioOrdered By: Missael Lomeli on 10-10-2024 Albumin/Globulin [Mass ratio] 1.0 {ratio} 0.9-2.4 [facility] Serum or plasma alkaline regina sphatase measurementOrdered By: Missael Lomeli on 10-10-2024 ALP [Catalytic activity/Vol] 122 U/L High 35-104 [facility] Serum or plasma cholesterol in HDL measurement (mass/volume)Ordered By: Missael Lomeli on 10-10-2024 Cholesterol in HDL [Mass/Vol] 56 mg/dL >40 [facility] Comment on above: National Cholesterol Education Program (NCEP) guidelines:<40 mg/dL: Low HDL-cholesterol (major risk factor for CHD)>= 60 mg/dL: High HDL-cholesterol (negative risk factor for CHD)HDL-cholesterol is affected by a number of factors, e.g. smoking, exercise, hormones, sex and age. Serum or plasma cholesterol measurement (mass/volume)Ordered By: Missael Lomeli on 10-10-2024 Cholesterol [Mass/Vol] 103 mg/dL <201 [facility] Comment on above: Cholesterol level, D esirable <200 mg/dLBorderline high cholesterol 200-239 mg/dLHigh cholesterol >=240 mg/dLRecommendations of the NCEP Adult Treatment Panel for the following risk-cutoff thresholds for the [place] population. Total proteinOrdered By: Enrrique Lomeli on 10-10-2024 Protein [Mass/Vol] 7.2 g/dL 5.9-8.4 [facility] Triglycerides measurementOrd ered By: Missael Lomeli on 10-10-2024 Triglyceride [Mass/Vol] 82 mg/dL <199 [facility] Comment on above: The drugs N-Acetylcy steine and Metamizole may falsely depress this assay. Normal range: <150 mg/dLBorderline High: 150-199 mg/dLHigh: 200-499 mg/dLVery High: >500 mg/dL Absolute lymphocyte countOrd ered By: Shayna Malhotra on 10-09-2024 Lymphocytes Auto (Unsp spec) [#/Vol] 0.97 10*3/uL 0.83-4.51 [facility] Absolute neutrophil countOrd ered By: Dany Richardson on 10-09-2024 Neutrophils (Bld) [#/Vol] 4.9 10*3/uL 2.0-7.7 [facility] Absolute neutrophil countOrd ered By: Shayna Malhotra on 10-09-2024 Neutrophils (Bld) [#/Vol] 4.4 10*3/uL 2.0-7.7 [facility] Alcohol, Blood (Medical)-Ser umon 10-09-2024 SERUM ETOH < 10.1 Normal <=10.0 [facility] Comment on above: Result Comment: This test is for medical purposes only. The legal definition of intoxication varies according to local law. Performed By: #### L 503.0106 #### [facility] [place], [address] Amorphous sediment detection in urine sediment by light microscopyOrdered By: Dany Richardson on 10-09-2024 Amorphous sediment LM Ql (Urine sed) 1+ [facility] Amphetamine detection with 1 000 ng/mL as cutoffOrdered By: Missael Lomeli on 10-09-2024 Amphetamines Screen method >1000 ng/mL Ql (U) Negative < 200 ng/mL [facility] Anion gap in Serum or Plasma Ordered By: Dany Richardson on 10-09-2024 Anion gap [Moles/Vol] 11 mmol/L 10-18 [facility] Anion gap in Serum or Plasma Ordered By: Shayna Malhotra on 10-09-2024 Anion gap [Moles/Vol] 12 mmol/L 10-18 [facility] Automated lymphocyte count a s percentage of total leukocytesOrdered By: Shayna Malhotra on 10-09-2024 Lymphocytes/100 WBC Auto (Unsp spec) 16.1 % Low 19-41 [facility] BUN/creatinine ratioOrdered By: Dany Richardson on 10-09-2024 Urea nitrogen/Creatinine [Mass ratio] 26.6 mg/mg High 10- [facility] BUN/creatinine ratioOrdered By: Shayna Malhotra on 10-09-2024 Urea nitrogen/Creatinine [Mass ratio] 25.9 mg/mg High - [facility] Basophil percentageOrdered B y: Dany Richardson on 10-09-2024 Basophils/100 WBC (Bld) 0.4 % 0-1 [facility] Basophil percentageOrdered B y: Shayna Malhotra on 10-09-2024 Basophils/100 WBC (Bld) 0.5 % 0-1 [facility] Bilirubin Test strip Ql (U)O rdered By: Dany Richardson on 10-09-2024 Bilirubin Ql (U) Negative Negative [facility] Bilirubin, totalOrdered By: Dany Richardson on 10-09-2024 Bilirubin [Mass/Vol] 0.67 mg/dL 0.00-1.30 [facility] Bilirubin, totalOrdered By: Shayna Malhotra on 10-09-2024 Bilirubin [Mass/Vol] 0.62 mg/dL 0.00-1.30 [facility] CBC W/Diff, Automatedon Absolute Lymph 1.11 X10 3/uL Normal 0.83-4.51 [facility] Comment on above: Performed By: #### L 500.4050, L506.1000, L501.9985, L100.0100 #### [facility] [address] [place], [address] Absolute Neut 4.9 X10 3/uL Normal 2.0-7.7 [facility] Comment on above: Performed By: #### L 500.4050, L506.1000, L501.9985, L100.0100 #### [facility] [address] [place], [address] Basophils/100 WBC (Bld) 0.4 % Normal 0-1 [facility] Comment on above: Performed By: #### L 500.4050, L506.1000, L501.9985, L100.0100 #### [facility] [address] [place], [address] Eosinophils/100 WBC (Bld) 2.5 % Normal 0-5 [facility] Comment on above: Performed By: #### L 500.4050, L506.1000, L501.9985, L100.0100 #### [facility] [address] [place], [address] Erythrocyte distribution width (RBC) [Ratio] 15.9 % High 11.6-14.6 [facility] Comment on above: Performed By: #### L 500.4050, L506.1000, L501.9985, L100.0100 #### [facility] [address] [place], [address] Hematocrit (Bld) [Volume fraction] 40.8 % Normal 37-47 [facility] Comment on above: Performed By: #### L 500.4050, L506.1000, L501.9985, L100.0100 #### [facility] [address] [place], [address] Hemoglobin (Bld) [Mass/Vol] 13.5 g/dL Normal 12.0-15.0 [facility] Comment on above: Performed By: #### L 500.4050, L506.1000, L501.9985, L100.0100 #### [facility] [address] [place], [address] IG% 0.400 Normal 0.0-0.9 [facility] Comment on above: Result Comment: IG% - Immature Granulocytes (promyelocytes, myelocytes and metamyelocytes) > 1% indicates that a LEFT SHIFT is Present. Performed By: #### L 500.4050, L506.1000, L501.9985, L100.0100 #### [facility] [address] [place], [address] Lymphocytes/100 WBC (Bld) 16.3 % Low 19-41 [facility] Comment on above: Performed By: #### L 500.4050, L506.1000, L501.9985, L100.0100 #### [facility] [address] [place], [address] MCH (RBC) [Entitic mass] 28.9 pg Normal 27.0-32.0 [facility] Comment on above: Performed By: #### L 500.4050, L506.1000, L501.9985, L100.0100 #### [facility] [address] [place], [address] MCHC (RBC) [Mass/Vol] 33.1 g/dL Normal 32-36 [facility] Comment on above: Performed By: #### L 500.4050, L506.1000, L501.9985, L100.0100 #### [facility] [address] [place], [address] MCV (RBC) [Entitic vol] 87.4 fL Normal 81-99 [facility] Comment on above: Performed By: #### L 500.4050, L506.1000, L501.9985, L100.0100 #### [facility] [address] [place], [address] Monocytes/100 WBC (Bld) 8.3 % Normal 0-10 [facility] Comment on above: Performed By: #### L 500.4050, L506.1000, L501.9985, L100.0100 #### [facility] [address] [place], [address] Neutrophils/100 WBC (Bld) 72.1 % High 47-70 [facility] Comment on above: Performed By: #### L 500.4050, L506.1000, L501.9985, L100.0100 #### [facility] [address] [place], [address] Nucleated RBC (Bld) [#/Vol] 0 10*3/uL Normal 0-5 [facility] Comment on above: Performed By: #### L 500.4050, L506.1000, L501.9985, L100.0100 #### [facility] [address] [place], [address] Platelet mean volume (Bld) [Entitic vol] 11.8 fL Normal 6.2-12.0 [facility] Comment on above: Performed By: #### L 500.4050, L506.1000, L501.9985, L100.0100 #### [facility] [address] [place], [address] Platelets (Bld) [#/Vol] 106 10*3/uL Low 150-450 [facility] Comment on above: Performed By: #### L 500.4050, L506.1000, L501.9985, L100.0100 #### [facility] [address] [place], [address] RBC (Bld) [#/Vol] 4.67 10*6/uL Normal 4.2-5.4 [facility] Comment on above: Performed By: #### L 500.4050, L506.1000, L501.9985, L100.0100 #### [facility] [address] [place], [address] RDW SD 51.0 fl High 35.1-43.9 [facility] Comment on above: Performed By: #### L 500.4050, L506.1000, L501.9985, L100.0100 #### [facility] [address] [place], [address] WBC (Bld) [#/Vol] 6.8 10*3/uL Normal 4.4-11.0 [facility] Comment on above: Performed By: #### L 500.4050, L506.1000, L501.9985, L100.0100 #### [facility] [address] [place], [address] Absolute Lymph 0.97 X10 3/uL Normal 0.83-4.51 [facility] Comment on above: Order Comment: 134 Performed By: #### L 503.0106 #### [facility] [address] [place], [address] Absolute Neut 4.4 X10 3/uL Normal 2.0-7.7 [facility] Comment on above: Order Comment: 134 Performed By: #### L 503.0106 #### [facility] [address] [place], [address] Basophils/100 WBC (Bld) 0.5 % Normal 0-1 [facility] Comment on above: Order Comment: 134 Performed By: #### L 503.0106 #### [facility] [address] [place], [address] Eosinophils/100 WBC (Bld) 1.2 % Normal 0-5 [facility] Comment on above: Order Comment: 134 Performed By: #### L 503.0106 #### [facility] [address] [place], [address] Erythrocyte distribution width (RBC) [Ratio] 15.7 % High 11.6-14.6 [facility] Comment on above: Order Comment: 134 Performed By: #### L 503.0106 #### [facility] [address] [place], [address] Hematocrit (Bld) [Volume fraction] 40.9 % Normal 37-47 [facility] Comment on above: Order Comment: 134 Performed By: #### L 503.0106 #### [facility] [address] [place], [address] Hemoglobin (Bld) [Mass/Vol] 13.5 g/dL Normal 12.0-15.0 [facility] Comment on above: Order Comment: 134 Performed By: #### L 503.0106 #### [facility] [address] [place], [address] IG% 0.300 Normal 0.0-0.9 [facility] Comment on above: Order Comment: 134 Result Comment: IG% - Immature Granulocytes (promyelocytes, myelocytes and metamyelocytes) > 1% indicates that a LEFT SHIFT is Present. Performed By: #### L 503.0106 #### [facility] [address] [place], [address] Lymphocytes/100 WBC (Bld) 16.1 % Low 19-41 [facility] Comment on above: Order Comment: 134 Performed By: #### L 503.0106 #### [facility] [address] [place], [address] MCH (RBC) [Entitic mass] 28.8 pg Normal 27.0-32.0 [facility] Comment on above: Order Comment: 134 Performed By: #### L 503.0106 #### [facility] [address] [place], [address] MCHC (RBC) [Mass/Vol] 33.0 g/dL Normal 32-36 [facility] Comment on above: Order Comment: 134 Performed By: #### L 503.0106 #### [facility] [address] [place], [address] MCV (RBC) [Entitic vol] 87.4 fL Normal 81-99 [facility] Comment on above: Order Comment: 134 Performed By: #### L 503.0106 #### [facility] [address] [place], [address] Monocytes/100 WBC (Bld) 8.4 % Normal 0-10 [facility] Comment on above: Order Comment: 134 Performed By: #### L 503.0106 #### [facility] [address] [place], [address] Neutrophils/100 WBC (Bld) 73.5 % High 47-70 [facility] Comment on above: Order Comment: 134 Performed By: #### L 503.0106 #### [facility] [address] [place], [address] Nucleated RBC (Bld) [#/Vol] 0 10*3/uL Normal 0-5 [facility] Comment on above: Order Comment: 134 Performed By: #### L 503.0106 #### [facility] [address] [place], [address] Platelet mean volume (Bld) [Entitic vol] 10.8 fL Normal 6.2-12.0 [facility] Comment on above: Order Comment: 134 Performed By: #### L 503.0106 #### [facility] [address] [place], [address] Platelets (Bld) [#/Vol] 107 10*3/uL Low 150-450 [facility] Comment on above: Order Comment: 134 Performed By: #### L 503.0106 #### [facility] [address] [place], [address] RBC (Bld) [#/Vol] 4.68 10*6/uL Normal 4.2-5.4 [facility] Comment on above: Order Comment: 134 Performed By: #### L 503.0106 #### [facility] [address] [place], [address] RDW SD 50.2 fl High 35.1-43.9 [facility] Comment on above: Order Comment: 134 Performed By: #### L 503.0106 #### [facility] [address] [place], [address] WBC (Bld) [#/Vol] 6.0 10*3/uL Normal 4.4-11.0 [facility] Comment on above: Order Comment: 134 Performed By: #### L 503.0106 #### [facility] [address] [place], [address] CRPon 10-09-2024 C-REACTIVE PROT 5.92 mg/L High 0.0-3.0 [facility] Comment on above: Performed By: #### L 503.0106 #### [facility] [address] [place], [address] Carbon dioxide, total [Moles /volume] in Central venous bloodOrdered By: Dany Richardson on 10-09-2024 CO2 [Moles/Vol] 21.0 mmol/L 21.0-32.0 [facility] Carbon dioxide, total [Moles /volume] in Central venous bloodOrdered By: Shayna Malhotra on 10-09-2024 CO2 [Moles/Vol] 22.6 mmol/L 21.0-32.0 [facility] Chloride assayOrdered By: Nolan Richardson on 10-09-2024 Chloride [Moles/Vol] 106 mmol/L 98-108 [facility] Chloride assayOrdered By: Maryanne Malhotra on 10-09-2024 Chloride [Moles/Vol] 104 mmol/L 98-108 [facility] Comprehensive Metabolic Prof ilon 10-09-2024 Albumin [Mass/Vol] 3.8 g/dL Normal 3.4-4.8 [facility] Comment on above: Performed By: #### L 500.4050, L506.1000, L501.9985, L100.0100 #### [facility] [address] [place], [address] Albumin/Globulin [Mass ratio] 0.8 {ratio} Low 0.9-2.4 [facility] Comment on above: Performed By: #### L 500.4050, L506.1000, L501.9985, L100.0100 #### [facility] [address] [place], [address] ALK PHOS 135 U/L High 35-104 [facility] Comment on above: Performed By: #### L 500.4050, L506.1000, L501.9985, L100.0100 #### [facility] [address] [place], [address] ALT [Catalytic activity/Vol] 23 U/L Normal <=34 [facility] Comment on above: Performed By: #### L 500.4050, L506.1000, L501.9985, L100.0100 #### [facility] [address] [place], [address] AST [Catalytic activity/Vol] 40 U/L High <=31 [facility] Comment on above: Result Comment: Hemo lysis present, Results??could be affected. ?? Performed By: #### L 500.4050, L506.1000, L501.9985, L100.0100 #### [facility] [address] [place], [address] Bilirubin [Mass/Vol] 0.67 mg/dL Normal 0.00-1.30 [facility] Comment on above: Performed By: #### L 500.4050, L506.1000, L501.9985, L100.0100 #### [facility] [address] [place], [address] BUN/CRE 26.6 RATIO High 10-20 [facility] Comment on above: Performed By: #### L 500.4050, L506.1000, L501.9985, L100.0100 #### [facility] [address] [place], [address] Calcium [Mass/Vol] 9.7 mg/dL Normal 7.6-11.0 [facility] Comment on above: Performed By: #### L 500.4050, L506.1000, L501.9985, L100.0100 #### [facility] [address] [place], [address] Chloride [Moles/Vol] 106 mmol/L Normal 98-108 [facility] Comment on above: Performed By: #### L 500.4050, L506.1000, L501.9985, L100.0100 #### [facility] [address] [place], [address] CO2 [Moles/Vol] 21.0 mmol/L Normal 21.0-32.0 [facility] Comment on above: Performed By: #### L 500.4050, L506.1000, L501.9985, L100.0100 #### [facility] [address] [place], [address] Creatinine [Mass/Vol] 0.88 mg/dL Normal 0.70-1.20 [facility] Comment on above: Performed By: #### L 500.4050, L506.1000, L501.9985, L100.0100 #### [facility] [address] [place], [address] ECRCL 81.27 ml/min Normal 50-250 [facility] Comment on above: Performed By: #### L 500.4050, L506.1000, L501.9985, L100.0100 #### [facility] [address] [place], [address] GAP 11 Normal 5-15 [facility] Comment on above: Performed By: #### L 500.4050, L506.1000, L501.9985, L100.0100 #### [facility] [address] [place], [address] GFR/1.73 sq M.predicted among non-blacks MDRD (S/P/Bld) [Vol rate/Area] 70 mL/min/{1.73_m2} Normal >60 [facility] Comment on above: Result Comment: mL/m in/1.73m2 CKD-EPI Creatinine Equation (2020) Performed By: #### L 500.4050, L506.1000, L501.9985, L100.0100 #### [facility] [address] [place], [address] Globulin (S) [Mass/Vol] 4.6 g/dL High 2.2-4.2 [facility] Comment on above: Performed By: #### L 500.4050, L506.1000, L501.9985, L100.0100 #### [facility] [address] [place], [address] Glucose [Mass/Vol] 138 mg/dL High 70-99 [facility] Comment on above: Performed By: #### L 500.4050, L506.1000, L501.9985, L100.0100 #### [facility] [address] [place], [address] Potassium [Moles/Vol] 4.5 mmol/L Normal 3.3-5.1 [facility] Comment on above: Result Comment: Hemo lysis present, Results??could be affected. ?? Performed By: #### L 500.4050, L506.1000, L501.9985, L100.0100 #### [facility] [address] [place], [address] Sodium [Moles/Vol] 138 mmol/L Normal 133-145 [facility] Comment on above: Performed By: #### L 500.4050, L506.1000, L501.9985, L100.0100 #### [facility] [address] [place], [address] T PROT 8.4 g/dL Normal 5.9-8.4 [facility] Comment on above: Performed By: #### L 500.4050, L506.1000, L501.9985, L100.0100 #### [facility] [address] [place], [address] Urea nitrogen [Mass/Vol] 23 mg/dL High 4-19 [facility] Comment on above: Performed By: #### L 500.4050, L506.1000, L501.9985, L100.0100 #### [facility] [address] [place], [address] Albumin [Mass/Vol] 4.0 g/dL Normal 3.4-4.8 [facility] Comment on above: Order Comment: 134 Performed By: #### L 501.080 #### [facility] [address] [place], [address] Albumin/Globulin [Mass ratio] 0.8 {ratio} Low 0.9-2.4 [facility] Comment on above: Order Comment: 134 Performed By: #### L 501.080 #### [facility] [address] [place], [address] ALK PHOS 148 U/L High 35-104 [facility] Comment on above: Order Comment: 134 Performed By: #### L 501.080 #### [facility] [address] [place], [address] ALT [Catalytic activity/Vol] 26 U/L Normal <=34 [facility] Comment on above: Order Comment: 134 Performed By: #### L 501.080 #### [facility] [address] [place], [address] AST [Catalytic activity/Vol] 37 U/L High <=31 [facility] Comment on above: Order Comment: 134 Performed By: #### L 501.080 #### [facility] [address] [place], [address] Bilirubin [Mass/Vol] 0.62 mg/dL Normal 0.00-1.30 [facility] Comment on above: Order Comment: 134 Performed By: #### L 501.080 #### [facility] [address] [place], [address] BUN/CRE 25.9 RATIO High 10-20 [facility] Comment on above: Order Comment: 134 Performed By: #### L 501.080 #### [facility] [address] [place], [address] Calcium [Mass/Vol] 9.6 mg/dL Normal 7.6-11.0 [facility] Comment on above: Order Comment: 134 Performed By: #### L 501.080 #### [facility] [address] [place], [address] Chloride [Moles/Vol] 104 mmol/L Normal 98-108 [facility] Comment on above: Order Comment: 134 Performed By: #### L 501.080 #### [facility] [address] [place], [address] CO2 [Moles/Vol] 22.6 mmol/L Normal 21.0-32.0 [facility] Comment on above: Order Comment: 134 Performed By: #### L 501.080 #### [facility] [address] [place], [address] Creatinine [Mass/Vol] 0.82 mg/dL Normal 0.70-1.20 [facility] Comment on above: Order Comment: 134 Performed By: #### L 501.080 #### [facility] [address] [place], [address] GAP 12 Normal 5-15 [facility] Comment on above: Order Comment: 134 Performed By: #### L 501.080 #### [facility] [address] [place], [address] GFR/1.73 sq M.predicted among non-blacks MDRD (S/P/Bld) [Vol rate/Area] 76 mL/min/{1.73_m2} Normal >60 [facility] Comment on above: Order Comment: 134 Result Comment: mL/m in/1.73m2 CKD-EPI Creatinine Equation (2020) Performed By: #### L 501.080 #### [facility] [address] [place], [address] Globulin (S) [Mass/Vol] 4.8 g/dL High 2.2-4.2 [facility] Comment on above: Order Comment: 134 Performed By: #### L 501.080 #### [facility] [address] [place], [address] Glucose [Mass/Vol] 173 mg/dL High 70-99 [facility] Comment on above: Order Comment: 134 Performed By: #### L 501.080 #### [facility] [address] [place], [address] Potassium [Moles/Vol] 4.2 mmol/L Normal 3.3-5.1 [facility] Comment on above: Order Comment: 134 Performed By: #### L 501.080 #### [facility] [address] [place], [address] Sodium [Moles/Vol] 138 mmol/L Normal 133-145 [facility] Comment on above: Order Comment: 134 Performed By: #### L 501.080 #### [facility] [address] [place], [address] T PROT 8.9 g/dL High 5.9-8.4 [facility] Comment on above: Order Comment: 134 Performed By: #### L 501.080 #### [facility] [address] [place], [address] Urea nitrogen [Mass/Vol] 21 mg/dL High 4-19 [facility] Comment on above: Order Comment: 134 Performed By: #### L 501.080 #### [facility] [address] [place], [address] Emergency Department Summary on 10-09-2024 Emergency Department Summary [facility] Medical Records Department [address] [place] [address] Emergency Department Summary 10/09/24 MR#: [id number] Acct: [id number] Name: VIDA NINA Rep #: [id number] : 1950 73 From: Dany Richardson MD PCP: Dr. Shayna Malhotra MD Status:REG ER Location: ED HPI History of Present Illness Chief Complaint: Lower Extremity Injury Narrative Narrative: 73-year-old female states that she had pins placed in her left foot approximately 15 years ago [place] after breaking her heel. She is currently in [facility]. She states for the last 2 weeks she has been having increasing foot pain. She states that on Tuesday, probably of the last week, she had x-rays obtained at the [facility]. She went and saw Dr. Shayna Malhotra on Tuesday, but he did not have the x-ray results. She states that she is having a lot of pain in her left heel that is worse with weightbearing and walking and palpation. She states that it feels as if she is having a baby out of her left heel. [facility] Medical History Obesity Anxiety Cancer Anxiety Diabetes [...] History powder [facility] Unknown History Lite Strips) blood-glucose [...] ROS Narrative (more content not included)... Normal [facility] Eosinophil percentageOrdered By: Dany Richardson on 10-09-2024 Eosinophils/100 WBC (Bld) 2.5 % 0-5 [facility] Eosinophil percentageOrdered By: Shayna Malhotra on 10-09-2024 Eosinophils/100 WBC (Bld) 1.2 % 0-5 [facility] Epithelial cells.squamous LM Ql (Urine sed)Ordered By: Dany Richardson on 10-09-2024 Epithelial cells.squamous LM.HPF (Urine sed) [#/Area] 0 /[HPF] 5-10 [facility] Erythrocyte Sed Rateon 10-09 SED RATE 49 mm/hr High 0-30 [facility] Comment on above: Performed By: #### L 503.0106 #### [facility] [place], [address] Erythrocyte distribution wid th (RBC) [Ratio]Ordered By: Dany Richardson on 10-09-2024 Erythrocyte distribution width (RBC) [Entitic vol] 51.0 fL High 35.1-43.9 [facility] Erythrocyte distribution wid th (RBC) [Ratio]Ordered By: Shayna Malhotra on 10-09-2024 Erythrocyte distribution width (RBC) [Entitic vol] 50.2 fL High 35.1-43.9 [facility] Erythrocyte distribution wid th ratioOrdered By: Dany Richardson on 10-09-2024 Erythrocyte distribution width (RBC) [Ratio] 15.9 % High 11.6-14.6 [facility] Erythrocyte distribution wid th ratioOrdered By: Shayna Malhotra on 10-09-2024 Erythrocyte distribution width (RBC) [Ratio] 15.7 % High 11.6-14.6 [facility] Erythrocyte distribution wid th standard deviationOrdered By: Shayna Malhotra on 10-09-2024 Erythrocyte distribution width (RBC) [Ratio] 50.2 fl High 35.1-43.9 [facility] Erythrocyte sedimentation ra teOrdered By: Missael Lomeli on 10-09-2024 ESR (Bld) [Velocity] 49 mm/h High 0-30 [facility] Estimation of creatinine silvana aranceOrdered By: Dany Richardson on 10-09-2024 Estimated Creatinine Clearance Calc 81.27 ml/min 50-250 [facility] Extremity Lower without Cont raon 10-09-2024 Extremity Lower without Contra [facility] Imaging Services [address] [place] [address] [id number] Extremity Lower without Contra MR#: [id number] Acct: [id number] Name: VIDA NINA Rep #: [id number] : 1950 F 73 From: Saul Sanchez MD PCP: Dr. Shayna Malhotra MD Status: ADM IN Study: Extremity Lower without Contra Date of Exam: 0 10/09/24 Exam# [id number] Ordering Dr: Missael Hernandez DO PROCEDURE: EXTREMITY [...] Hernandez at 2:20 a.m. 10/10/2024 Reading Location: [facility] CC: Dr. Missael Hernandez DO; Dr. Shayna Malhotra MD Material Mixer: Signed Normal [facility] Foot min 3 Viewson 5 Foot min 3 Views [facility] Imaging Services [address] [place] [address] Foot min 3 Views MR#: [id number] Acct: [id number] Name: VIDA NINA Rep #: [id number] : 1950 F 73 From: Alok Jiménez MD PCP: Dr. Shayna Malhotra MD Status: REG ER Study: Foot min 3 Views Date of Exam: 10/09/24 Exam# [id number] Ordering Dr: Dany Richardson MD EXAM: LEFT [...] Dany Richardson MD; Dr. Shayna Malhotra MD Material Mixer: Signed Normal [facility] GFR/1.73 sq M.predicted saida g non-blacks MDRD (S/P/Bld) [Vol rate/Area]Ordered By: Dany Richardson on 10-09-2024 Estimated GFR (MDRD) Non-Af Amer 70 >60 [facility] Comment on above: mL/min/1.73m2 CKD-EP I Creatinine Equation (2020) GFR/1.73 sq M.predicted saida g non-blacks MDRD (S/P/Bld) [Vol rate/Area]Ordered By: Shayna Malhotra on 10-09-2024 Estimated GFR (MDRD) Non-Af Amer 76 >60 [facility] Comment on above: mL/min/1.73m2 CKD-EP I Creatinine Equation (2020) Glomerular filtration rate ( GFR) estimation/1.73 sq m using serum, plasma, or whole bOrdered By: Shayna Malhotra on 10-09-2024 GFR/1.73 sq M.predicted among non-blacks MDRD (S/P/Bld) [Vol rate/Area] 76 mL/min/{1.73_m2} >60 [facility] Comment on above: mL/min/1.73m2 CKD-EP I Creatinine Equation (2020) Glucose Ql (U)Ordered By: Nolan Richardson on 10-09-2024 Glucose (U) [Mass/Vol] 1000 mg/dL High Normal [facility] H AND P Exam - Hospital[place] 10-09-2024 H&P Exam - Hospitalist [facility] Medical Records Department [address] [place] [address] H P Exam - Hospitalist 10/09/242118 MR#: [id number] Acct: [id number] Name: VIDA NINA Rep #: [id number] : 1950 73 From: Missael Hernandez DO PCP: Dr. Shayna Malhotra MD Status:ADM IN Location: [facility] [id number] HPI - General General Date of Admission: [...] is currently residing in assisted living at [facility] presents to [facility] ER complaining of worsening Left heel [...] skin folds and extremely poor hygiene with [employer] having social work consulted and patient felt [...] is expected to extend beyond 2 midnights. [facility] Medical History Obesity Anxiety Cancer Anxiety Diabetes [...] Unknown Hi (more content not included)... Normal [facility] Hematocrit Auto (Bld) [Volum e fraction]Ordered By: Dany Richardson on 10-09-2024 Hematocrit (Bld) [Volume fraction] 40.8 % [address] Hematocrit Auto (Bld) [Volum e fraction]Ordered By: Shayna Malhotra on 10-09-2024 Hematocrit (Bld) [Volume fraction] 40.9 % [address] [place] [address] Hemoglobin A1con 10-09-2024 HbA1c (Bld) [Mass fraction] 7.2 % High <=5.6 [facility] Comment on above: Order Comment: 134 Result Comment: Norm al < 5.7 % Prediabetic 5.7 - 6.4 % Diabetic >or= 6.5 % Please note range changes. Performed By: #### L 501.080 #### [facility] [address] [place], [place] [address] [place], [place], [id number] Hemoglobin A1c percentageOrd ered By: Missael Lomeli on 10-09-2024 HbA1c (Bld) [Mass fraction] 7.2 % High <5.7 [facility] Comment on above: Normal < 5.7 % Predi abetic 5.7 - 6.4 % Diabetic >or= 6.5 % Please note range changes. Hemoglobin A1c percentageOrd ered By: Shayna Malhotra on 10-09-2024 HbA1c (Bld) [Mass fraction] 7.2 % High <5.7 [facility] Comment on above: Normal < 5.7 % Predi abetic 5.7 - 6.4 % Diabetic >or= 6.5 % Please note range changes. Hemoglobin measurementOrdere d By: Dany Richardson on 10-09-2024 Hemoglobin (Bld) [Mass/Vol] 13.5 g/dL 12.0-15.0 [facility] Hemoglobin measurementOrdere d By: Shayna Malhotra on 10-09-2024 Hemoglobin (Bld) [Mass/Vol] 13.5 g/dL 12.0-15.0 [facility] Immature granulocytes/100 WB C Auto (Bld)Ordered By: Dany Richardson on 10-09-2024 Immature granulocytes/100 WBC (Bld) 0.400 % 0.0-0.9 [facility] Comment on above: IG% - Immature Granu locytes (promyelocytes, myelocytes and metamyelocytes) > 1% indicates that a LEFT SHIFT is Present. Immature granulocytes/100 WB C Auto (Bld)Ordered By: Shayna Malhotra on 10-09-2024 Immature granulocytes/100 WBC (Bld) 0.300 % 0.0-0.9 [facility] Comment on above: IG% - Immature Granu locytes (promyelocytes, myelocytes and metamyelocytes) > 1% indicates that a LEFT SHIFT is Present. Ketones Test strip Ql (U)Ord ered By: Dany Richardson on 10-09-2024 Ketones Ql (U) Negative Negative [facility] - Chemistry and C hemistry - challengeOrdered By: Dany Richardson on 10-09-2024 AST [Catalytic activity/Vol] 40 U/L High <32 [facility] Comment on above: Hemolysis present, R esults could be affected. Laboratory - Chemistry and C hemistry - challengeOrdered By: Shayna Malhotra on 10-09-2024 AST [Catalytic activity/Vol] 37 U/L High <32 [facility] Lymphocytes Auto (Unsp spec) [#/Vol]Ordered By: Dany Richardson on 10-09-2024 Lymphocytes (Bld) [#/Vol] 1.11 10*3/uL 0.83-4.51 [facility] Lymphocytes Auto (Unsp spec) [#/Vol]Ordered By: Shayna Malhotra on 10-09-2024 Lymphocytes (Bld) [#/Vol] 0.97 10*3/uL 0.83-4.51 [facility] Lymphocytes/100 WBC Auto (Un sp spec)Ordered By: Dany Richardson on 10-09-2024 Lymphocytes/100 WBC (Bld) 16.3 % Low 19-41 [facility] Lymphocytes/100 WBC Auto (Un sp spec)Ordered By: Shayna Malhotra on 10-09-2024 Lymphocytes/100 WBC (Bld) 16.1 % Low 19-41 [facility] MCV (mean corpuscular volume ) determinationOrdered By: Dany Richardson on 10-09-2024 MCV (RBC) [Entitic vol] 87.4 fL 81-99 [facility] MCV (mean corpuscular volume ) determinationOrdered By: Shayna Malhotra on 10-09-2024 MCV (RBC) [Entitic vol] 87.4 fL 81-99 [facility] Magnesiumon 10-09-2024 Magnesium [Mass/Vol] 2.1 mg/dL Normal 1.5-2.2 [facility] Comment on above: Performed By: #### L 503.0106 #### [facility] [address] [place] [address], [address] Mean corpuscular hemoglobin (MCH) determinationOrdered By: Dany Richardson on 10-09-2024 MCH (RBC) [Entitic mass] 28.9 pg 27.0-32.0 [facility] Mean corpuscular hemoglobin (MCH) determinationOrdered By: Shayna Malhotra on 10-09-2024 MCH (RBC) [Entitic mass] 28.8 pg 27.0-32.0 [facility] Mean corpuscular hemoglobin concentration (MCHC) determinationOrdered By: Dany Richardson on 10-09-2024 MCHC (RBC) [Mass/Vol] 33.1 g/dL [facility] Mean corpuscular hemoglobin concentration (MCHC) determinationOrdered By: Shayna Malhotra on 10-09-2024 MCHC (RBC) [Mass/Vol] 33.0 g/dL [facility] Mean platelet volume determi nationOrdered By: Dany Richardson on 10-09-2024 Platelet mean volume (Bld) [Entitic vol] 11.8 fL 6.2-12.0 [facility] Mean platelet volume determi nationOrdered By: Shayna Malhotra on 10-09-2024 Platelet mean volume (Bld) [Entitic vol] 10.8 fL 6.2-12.0 [facility] Microscopic analysis of urin e for red blood cells (RBC)Ordered By: Dany Richardson on 10-09-2024 Microscopic analysis of urine for red blood cells (RBC) 10-25 SEEN /hpf 0-5 [facility] Urine RBC 10-25 SEEN /hpf 0-5 [facility] Monocyte percentageOrdered B y: Dany Richardson on 10-09-2024 Monocytes/100 WBC (Bld) 8.3 % 0-10 [facility] Monocyte percentageOrdered B y: Shayna Malhotra on 10-09-2024 Monocytes/100 WBC (Bld) 8.4 % 0-10 [facility] Mucus LM Ql (Urine sed)Order ed By: Dany Richardson on 10-09-2024 Mucus Ql (Urine sed) 0 SEEN /hpf [facility] Neutrophil percentageOrdered By: Dnay Richardson on 10-09-2024 Neutrophils/100 WBC (Bld) 72.1 % High 47-70 [facility] Neutrophil percentageOrdered By: Shayna Malhotra on 10-09-2024 Neutrophils/100 WBC (Bld) 73.5 % High 47-70 [facility] Nitrite Test strip Ql (U)Ord ered By: Dany Richardson on 10-09-2024 Nitrite Ql (U) Negative Negative [facility] No Panel InformationOrdered By: Missael Lomeli on 10-09-2024 Urine Buprenorphine Qualitative Negative < 200 ng/mL [facility] Urine Oxycodone Screen Negative < 100 ng/mL [facility] Nucleated red blood cell per centageOrdered By: Dany Richardson on 10-09-2024 Nucleated RBC/100 WBC (Bld) [Ratio] 0 % 0-5 [facility] Nucleated red blood cell per centageOrdered By: Shayna Malhotra on 10-09-2024 Nucleated RBC/100 WBC (Bld) [Ratio] 0 % 0-5 [facility] Platelet countOrdered By: Nolan Richardson on 10-09-2024 Platelets (Bld) [#/Vol] 106 10*3/uL Low 150-450 [facility] Platelet countOrdered By: Maryanne Malhotra on 10-09-2024 Platelets (Bld) [#/Vol] 107 10*3/uL Low 150-450 [facility] Potassium (Unsp spec) [Mass/ Vol]Ordered By: Dany Richardson on 10-09-2024 Potassium [Moles/Vol] 4.5 mmol/L 3.3-5.1 [facility] Comment on above: Hemolysis present, R esults could be affected. Potassium (Unsp spec) [Mass/ Vol]Ordered By: Shayna Malhotra on 10-09-2024 Potassium [Moles/Vol] 4.2 mmol/L 3.3-5.1 [facility] Potassium measurement (mass/ volume)Ordered By: Shayna Malhotra on 10-09-2024 Potassium (Unsp spec) [Mass/Vol] 4.2 mmol/L 3.3-5.1 [facility] Protein Test strip Ql (U)Ord ered By: Dany Richardson on 10-09-2024 Protein Ql (U) 30 mg/dl High Negative [facility] Quantitative urine opiates m easurementOrdered By: Missael Lomeli on 10-09-2024 Opiates Ql (U) Negative < 300 ng/mL [facility] RBC Auto (Bld) [#/Vol]Ordere d By: Dany Richardson on 10-09-2024 RBC (Bld) [#/Vol] 4.67 10*6/uL 4.2-5.4 [facility] RBC Auto (Bld) [#/Vol]Ordere d By: Shayna Malhotra on 10-09-2024 RBC (Bld) [#/Vol] 4.68 10*6/uL 4.2-5.4 [facility] Screening urine fentanyl ernay surementOrdered By: Missael Lomeli on 10-09-2024 fentaNYL Screen Ql (U) Negative [facility] Serum creatinine measurement (mass/volume)Ordered By: Dany Richardson on 10-09-2024 Creatinine [Mass/Vol] 0.88 mg/dL 0.70-1.20 [facility] Serum creatinine measurement (mass/volume)Ordered By: Shayna Malhotra on 10-09-2024 Creatinine [Mass/Vol] 0.82 mg/dL 0.70-1.20 [facility] Serum globulin measurementOr dered By: Dany Richardson on 10-09-2024 Globulin (S) [Mass/Vol] 4.6 g/dL High 2.2-4.2 [facility] Serum globulin measurementOr dered By: Shayna Malhotra on 10-09-2024 Globulin (S) [Mass/Vol] 4.8 g/dL High 2.2-4.2 [facility] Serum glucose measurement (m ass/volume)Ordered By: Dany Richardson on 10-09-2024 Glucose [Mass/Vol] 138 mg/dL High 70-99 [facility] Serum glucose measurement (m ass/volume)Ordered By: Shayna Malhotra on 10-09-2024 Glucose [Mass/Vol] 173 mg/dL High 70-99 [facility] Serum or plasma C reactive p rotein measurement (mass/volume)Ordered By: Missael Lomeli on 10-09-2024 CRP [Mass/Vol] 5.92 mg/L High 0.0-3.0 [facility] Serum or plasma alanine burnette otransferase (ALT) measurementOrdered By: Dany Richardson on 10-09-2024 ALT [Catalytic activity/Vol] 23 U/L <35 [facility] Serum or plasma alanine burnette otransferase (ALT) measurementOrdered By: Shayna Malhotra on 10-09-2024 ALT [Catalytic activity/Vol] 26 U/L <35 [facility] Serum or plasma albumin kim urement (mass/volume)Ordered By: Dany Richardson on 10-09-2024 Albumin [Mass/Vol] 3.8 g/dL 3.4-4.8 [facility] Serum or plasma albumin kim urement (mass/volume)Ordered By: Shayna Malhotra on 10-09-2024 Albumin [Mass/Vol] 4.0 g/dL 3.4-4.8 [facility] Serum or plasma albumin/glob ulin mass ratioOrdered By: Dany Richardson on 10-09-2024 Albumin/Globulin [Mass ratio] 0.8 {ratio} Low 0.9-2.4 [facility] Serum or plasma albumin/glob ulin mass ratioOrdered By: Shayna Malhotra on 10-09-2024 Albumin/Globulin [Mass ratio] 0.8 {ratio} Low 0.9-2.4 [facility] Serum or plasma alkaline regina sphatase measurementOrdered By: Dnay Richardson on 10-09-2024 ALP [Catalytic activity/Vol] 135 U/L High [facility] Serum or plasma alkaline regina sphatase measurementOrdered By: Shayna Malhotra on 10-09-2024 ALP [Catalytic activity/Vol] 148 U/L High - [facility] Serum or plasma calcium kim urement (mass/volume)Ordered By: Dany Richardson on 10-09-2024 Calcium [Mass/Vol] 9.7 mg/dL 7.6-11.0 [facility] Serum or plasma calcium kim urement (mass/volume)Ordered By: Shayna Malhotra on 10-09-2024 Calcium [Mass/Vol] 9.6 mg/dL 7.6-11.0 [facility] Serum or plasma ethanol kim urement (mass/volume)Ordered By: Missael Lomeli on 10-09-2024 Ethanol [Mass/Vol] mg/dL <10.1 [facility] Comment on above: This test is for med ical purposes only. The legal definition of intoxication varies according to local law. Serum or plasma urea nitroge n measurement (mass/volume)Ordered By: Dany Richardson on 10-09-2024 Urea nitrogen [Mass/Vol] 23 mg/dL High 09-22 [facility] Serum or plasma urea nitroge n measurement (mass/volume)Ordered By: Shayna Malhotra on 10-09-2024 Urea nitrogen [Mass/Vol] 21 mg/dL High 09-22 [facility] Sodium levelOrdered By: Dany Richardson on 10-09-2024 Sodium [Moles/Vol] 138 mmol/L 133-145 [facility] Sodium levelOrdered By: Paty Malhotra on 10-09-2024 Sodium [Moles/Vol] 138 mmol/L 133-145 [facility] Squamous epithelial cells de tection in urine sediment by light microscopyOrdered By: Dany Richardson on 10-09-2024 Epithelial cells.squamous LM Ql (Urine sed) 0-5 SEEN /hpf 5-10 [facility] TSH DL <= 0.005 mIU/L QnOrde red By: Missael Lomeli on 10-09-2024 TSH Qn 4.730 uIU/mL High 0.300-4.20 0 [facility] Thyroid Stim Hormone (TSH)on 10-09-2024 TSH 4.730 uIU/mL High 0.300-4.20 0 [facility] Comment on above: Performed By: #### L 503.0106 #### [facility] [address] [place], [address] Total proteinOrdered By: Treasure Richardson on 10-09-2024 Protein [Mass/Vol] 8.4 g/dL 5.9-8.4 [facility] Total proteinOrdered By: Evi Malhotra on 10-09-2024 Protein [Mass/Vol] 8.9 g/dL High 5.9-8.4 [facility] Transitional cells LM Ql (Ur ine sed)Ordered By: Dany Richardson on 10-09-2024 Urine Transitional Epithelial Cells 0-5 SEEN /hpf 0-5 [facility] Transitional cells detection in urine sediment by light microscopyOrdered By: Dany Richardson on 10-09-2024 Transitional cells LM Ql (Urine sed) 0-5 SEEN /hpf 0-5 [facility] Urinalysis, Completeon 10-09 AMORPHOUS 1+ Normal [facility] Comment on above: Order Comment: JOSE L CTOR TO SPECIFY Performed By: #### L 503.0106 #### [facility] [address] [place], [address] EPI,SQUAMOUS 0-5 SEEN Normal 5-10 [facility] Comment on above: Order Comment: JOSE L CTOR TO SPECIFY Performed By: #### L 503.0106 #### [facility] [address] [place], [address] EPI,TRANSITION 0-5 SEEN Normal 0-5 [facility] Comment on above: Order Comment: COLLE CTOR TO SPECIFY Performed By: #### L 503.0106 #### [facility] [address] [place], [address] RBC 10-25 SEEN Normal 0-5 [facility] Comment on above: Order Comment: COLLE CTOR TO SPECIFY Performed By: #### L 503.0106 #### [facility] [address] [place], [address] BACTERIA 4+ /hpf Normal None Seen [facility] Comment on above: Order Comment: JOSE L CTOR TO SPECIFY Performed By: #### L 503.0106 #### [facility] [address] [place], [address] WBC >100 SEEN Normal 0-5 [facility] Comment on above: Order Comment: JOSE L CTOR TO SPECIFY Performed By: #### L 503.0106 #### [facility] [address] [place], [address] Mucus Ql (Urine sed) 0 SEEN Normal [facility] Comment on above: Order Comment: JOSE L CTOR TO SPECIFY Performed By: #### L 503.0106 #### [facility] [address] [place], [address] Urine Drug Screen (VISTA)on 10-09-2024 AMPHETAMINES Negative Normal <1000 ng/mL [facility] Comment on above: Order Comment: UNK Performed By: #### L 503.0106 #### [facility] [address] [place], [address] BARBITIURATES Negative Normal < 200 ng/mL [facility] Comment on above: Order Comment: UNK Performed By: #### L 503.0106 #### [facility] [address] [place], [address] BENZODIAZIPINE Negative Normal < 200 ng/mL [facility] Comment on above: Order Comment: UNK Performed By: #### L 503.0106 #### [facility] [address] [place], [address] BUP Ur Drug Scr Negative Normal < 200 ng/mL [facility] Comment on above: Order Comment: UNK Performed By: #### L 503.0106 #### [facility] [address] [place], [address] COCAINE Negative Normal < 300 ng/mL [facility] Comment on above: Order Comment: UNK Performed By: #### L 503.0106 #### [facility] [address] [place], [address] Fentanyl Negative Normal [facility] Comment on above: Order Comment: UNK Performed By: #### L 503.0106 #### [facility] [address] [place], [address] METHADONE Negative Normal < 300 ng/mL [facility] Comment on above: Order Comment: UNK Performed By: #### L 503.0106 #### [facility] [address] [place], [address] OPIATES Negative Normal < 300 ng/mL [facility] Comment on above: Order Comment: UNK Performed By: #### L 503.0106 #### [facility] [address] [place], [address] OXYCODONE Negative Normal < 100 ng/mL [facility] Comment on above: Order Comment: UNK Performed By: #### L 503.0106 #### [facility] [address] [place], [address] PCP Negative Normal < 25 ng/mL [facility] Comment on above: Order Comment: UNK Performed By: #### L 503.0106 #### [facility] [address] [place], [place], [address] THC Negative Normal < 50 ng/mL [facility] Comment on above: Order Comment: UNK Performed By: #### L 503.0106 #### [facility] [address] [place], [place], [id number] Urine benzodiazepine levelOr dered By: Missael Lomeli on 10-09-2024 Benzodiazepines Ql (U) Negative < 200 ng/mL [facility] Urine blood detectionOrdered By: Dany Richardson on 10-09-2024 Urine Occult Blood 150 /ul High Negative [facility] Urine clarityOrdered By: Treasure Richardson on 10-09-2024 Clarity (U) Cloudy Clear [facility] Urine cocaine levelOrdered B y: Missael Lomeli on 10-09-2024 Cocaine Ql (U) Negative < 300 ng/mL [facility] Urine color determinationOrd ered By: Dany Richardson on 10-09-2024 Color (U) Yellow Yellow [facility] Urine [id number] abinol (THC) measurementOrdered By: Missael Lomeli on 10-09-2024 Cannabinoids Screen Ql (U) Negative < 50 ng/mL [facility] Urine glucose detectionOrder ed By: Dany Richardson on 10-09-2024 Glucose Ql (U) 1000 mg/dl High Normal [facility] Urine leukocyte esterase det ection by dipstickOrdered By: Dany Richardson on 10-09-2024 Leukocyte esterase Test strip Ql (U) 100 /ul High Negative [facility] Urine pHOrdered By: Dany chung on 10-09-2024 pH (U) 5.0 [pH] 5.0 - 8.0 [facility] Urine phencyclidine (PCP) de tectionOrdered By: Missael Lomeli on 10-09-2024 Phencyclidine Ql (U) Negative < 25 ng/mL [facility] Urine sediment bacteria coun t by microscopy (number/high power field)Ordered By: Dany Richardson on 10-09-2024 Bacteria LM.HPF (Urine sed) [#/Area] 4 /[HPF] None Seen [facility] Urine specific gravity measu rementOrdered By: Dany Beltránkaren on 10-09-2024 Specific gravity (U) [Rel density] 1.020 1.002-1.03 0 [facility] Urine urobilinogen measureme ntOrdered By: Dany Rochelleshruthi on 10-09-2024 Urobilinogen Ql (U) 1 mg/dl High Normal [facility] Urobilinogen Ql (U)Ordered B y: Dany Richardson on 10-09-2024 Urobilinogen (U) [Mass/Vol] 1 mg/dL High Normal [facility] Vitamin B12on 10-09-2024 Cobalamin (Vitamin B12) [Mass/Vol] 379 pg/mL Normal 180-914 [facility] Comment on above: Performed By: #### L 503.0106 #### [facility] [address], [place], [id number] Vitamin B12 ser/plasOrdered By: Missael Lomeli on 10-09-2024 Cobalamin (Vitamin B12) [Mass/Vol] 379 pg/mL 180-914 [facility] Vitamin D, 25-hydroxyOrdered By: Shayna Malhotra on 10-09-2024 Vitamin D 25-Hydroxy 30.0 ng/mL 30-100 [facility] Comment on above: Vitamin D StatusDefi ciency: <20 ng/mL (50nmol/L)Insufficiency: 20-30 ng/mL (50-75 nmol/L)Sufficiency: 30-100 ng/mL (75-250 nmol/L)Toxicity: >100 ng/mL (>250 nmol/L) Vitamin D,25 Hydroxyon 10-09 Vitamin D 25-OH 30.0 ng/mL Normal 30-100 [facility] Comment on above: Order Comment: 134 Result Comment: Maricarmen min D Status Deficiency: <20 ng/mL (50nmol/L) Insufficiency: 20-30 ng/mL (50-75 nmol/L) Sufficiency: 30-100 ng/mL (75-250 nmol/L) Toxicity: >100 ng/mL (>250 nmol/L) Performed By: #### L 501.080 #### [facility] [address] [place], [address] White blood cell (WBC) count Ordered By: Dany Richardson on 10-09-2024 WBC (Bld) [#/Vol] 6.8 10*3/uL 4.4-11.0 [facility] White blood cell (WBC) count Ordered By: Shayna Malhotra on 10-09-2024 WBC (Bld) [#/Vol] 6.0 10*3/uL 4.4-11.0 [facility] White blood cell countOrdere d By: Dany Richardson on 10-09-2024 Urine WBC >100 SEEN /hpf 0-5 [facility] White blood cell count >100 SEEN /hpf 0-5 [facility] CBC W/Diff, Automatedon Absolute Neut Normal 2.0-7.7 [facility] Comment on above: Order Comment: 134 Result Comment: UTO X2 Performed By: #### L 500.4050, L506.1000, L501.9985, L100.0100 #### [facility] [address] [place], [address] HCT Normal 37-47 [facility] Comment on above: Order Comment: 134 Result Comment: UTO X2 Performed By: #### L 500.4050, L506.1000, L501.9985, L100.0100 #### [facility] [address] [place], [address] HGB Normal 12.0-15.0 [facility] Comment on above: Order Comment: 134 Result Comment: UTO X2 Performed By: #### L 500.4050, L506.1000, L501.9985, L100.0100 #### [facility] [address] [place], [address] MCH Normal 27.0-32.0 [facility] Comment on above: Order Comment: 134 Result Comment: UTO X2 Performed By: #### L 500.4050, L506.1000, L501.9985, L100.0100 #### [facility] [address] [place], [address] MCHC Normal 32-36 [facility] Comment on above: Order Comment: 134 Result Comment: UTO X2 Performed By: #### L 500.4050, L506.1000, L501.9985, L100.0100 #### [facility] [address] [place], [address] MCV Normal 81-99 [facility] Comment on above: Order Comment: 134 Result Comment: UTO X2 Performed By: #### L 500.4050, L506.1000, L501.9985, L100.0100 #### [facility] [address] [place], [address] NEUT% Normal 47-70 [facility] Comment on above: Order Comment: 134 Result Comment: UTO X2 Performed By: #### L 500.4050, L506.1000, L501.9985, L100.0100 #### [facility] [address] [place], [address] PLT Normal 150-450 [facility] Comment on above: Order Comment: 134 Result Comment: UTO X2 Performed By: #### L 500.4050, L506.1000, L501.9985, L100.0100 #### [facility] [address] [place], [address] RBC Normal 4.2-5.4 [facility] Comment on above: Order Comment: 134 Result Comment: UTO X2 Performed By: #### L 500.4050, L506.1000, L501.9985, L100.0100 #### [facility] [address] [place], [address] RDW CV Normal 11.6-14.6 [facility] Comment on above: Order Comment: 134 Result Comment: UTO X2 Performed By: #### L 500.4050, L506.1000, L501.9985, L100.0100 #### [facility] [address] [place], [address] RDW SD Normal 35.1-43.9 [facility] Comment on above: Order Comment: 134 Result Comment: UTO X2 Performed By: #### L 500.4050, L506.1000, L501.9985, L100.0100 #### [facility] [address] [place], [address] WBC Normal 4.4-11.0 [facility] Comment on above: Order Comment: 134 Result Comment: UTO X2 Performed By: #### L 500.4050, L506.1000, L501.9985, L100.0100 #### [facility] [address] [place], [address] Comprehensive Metabolic Prof [facility] 10-08-2024 ALB Normal 3.4-4.8 [facility] Comment on above: Order Comment: 134 Result Comment: UTO X2 Performed By: #### L 500.4050, L506.1000, L501.9985, L100.0100 #### [facility] [address] [place], [address] ALK PHOS Normal 35-104 [facility] Comment on above: Order Comment: 134 Result Comment: UTO X2 Performed By: #### L 500.4050, L506.1000, L501.9985, L100.0100 #### [facility] [address] [place], [address] ALT Normal <=34 [facility] Comment on above: Order Comment: 134 Result Comment: UTO X2 Performed By: #### L 500.4050, L506.1000, L501.9985, L100.0100 #### [facility] [address] [place], [address] AST Normal <=31 [facility] Comment on above: Order Comment: 134 Result Comment: UTO X2 Performed By: #### L 500.4050, L506.1000, L501.9985, L100.0100 #### [facility] [address] [place], [address] BUN Normal 4-19 [facility] Comment on above: Order Comment: 134 Result Comment: UTO X2 Performed By: #### L 500.4050, L506.1000, L501.9985, L100.0100 #### [facility] [address] [place], [address] BUN/CRE Normal 10-20 [facility] Comment on above: Order Comment: 134 Result Comment: UTO X2 Performed By: #### L 500.4050, L506.1000, L501.9985, L100.0100 #### [facility] [address] [place], [address] Calcium Normal 7.6-11.0 [facility] Comment on above: Order Comment: 134 Result Comment: UTO X2 Performed By: #### L 500.4050, L506.1000, L501.9985, L100.0100 #### [facility] [address] [place], [address] CL Normal 98-108 [facility] Comment on above: Order Comment: 134 Result Comment: UTO X2 Performed By: #### L 500.4050, L506.1000, L501.9985, L100.0100 #### [facility] [address] [place], [address] CO2 Normal 21.0-32.0 [facility] Comment on above: Order Comment: 134 Result Comment: UTO X2 Performed By: #### L 500.4050, L506.1000, L501.9985, L100.0100 #### [facility] [address] [place], [address] CREAT,SERUM Normal 0.70-1.20 [facility] Comment on above: Order Comment: 134 Result Comment: UTO X2 Performed By: #### L 500.4050, L506.1000, L501.9985, L100.0100 #### [facility] [address] [place], [address] eGFR Normal >60 [facility] Comment on above: Order Comment: 134 Result Comment: UTO X2 Performed By: #### L 500.4050, L506.1000, L501.9985, L100.0100 #### [facility] [address] [place], [address] GAP Normal 5-15 [facility] Comment on above: Order Comment: 134 Result Comment: UTO X2 Performed By: #### L 500.4050, L506.1000, L501.9985, L100.0100 #### [facility] [address] [place], [address] GLU Normal 70-99 [facility] Comment on above: Order Comment: 134 Result Comment: UTO X2 Performed By: #### L 500.4050, L506.1000, L501.9985, L100.0100 #### [facility] [address] [place], [address] Potassium Normal 3.3-5.1 [facility] Comment on above: Order Comment: 134 Result Comment: UTO X2 Performed By: #### L 500.4050, L506.1000, L501.9985, L100.0100 #### [facility] [address] [place], [address] T BILI Normal 0.00-1.30 [facility] Comment on above: Order Comment: 134 Result Comment: UTO X2 Performed By: #### L 500.4050, L506.1000, L501.9985, L100.0100 #### [facility] [address] [place], [address] T PROT Normal 5.9-8.4 [facility] Comment on above: Order Comment: 134 Result Comment: UTO X2 Performed By: #### L 500.4050, L506.1000, L501.9985, L100.0100 #### [facility] [address] [place], [address] Comprehensive Metabolic Profil Normal 133-145 [facility] Comment on above: Order Comment: 134 Result Comment: UTO X2 Performed By: #### L 500.4050, L506.1000, L501.9985, L100.0100 #### [facility] [address] [place], [address] 50-EO-Yfhgete DOrdered By: Jean Malhotra on 07-09-2024 Vitamin D 25-Hydroxy 44.8 ng/mL [facility] Comment on above: Vitamin D 25([place]) Sta tus Range Deficiency <20 ng/mL (50nmol/L) Insufficiency 20 - 30 ng/mL (50 - 75 nmol/L) Sufficiency 30 - 100 ng/mL (75 - 250 nmol/L) Toxicity >100 ng/mL (>250 nmol/L) Absolute lymphocyte countOrd ered By: Shayna Malhotra on 07-09-2024 Lymphocytes Auto (Unsp spec) [#/Vol] 0.82 10*3/uL Low 0.83-4.51 [facility] Absolute neutrophil countOrd ered By: Shayna Malhotra on 07-09-2024 Neutrophils (Bld) [#/Vol] 2.6 10*3/uL 2.0-7.7 [facility] Albumin to globulin ratioOrd ered By: Shayna Malhotra on 07-09-2024 Albumin/Globulin [Mass ratio] 0.6 {ratio} Low 0.9-2.4 [facility] Automated lymphocyte count a s percentage of total leukocytesOrdered By: Shayna Malhotra on 07-09-2024 Lymphocytes/100 WBC Auto (Unsp spec) 20.2 % 19-41 [facility] Basophil percentageOrdered B y: Shayna Malhotra on 07-09-2024 Basophils/100 WBC (Bld) 1.0 % 0-1 [facility] Bilirubin, totalOrdered By: Shayna Malhotra on 07-09-2024 Bilirubin [Mass/Vol] 0.70 mg/dL 0.20-1.00 [facility] Comment on above: For patients on eltr ombopag therapy, use of Dimension [place] TBIL is not recommended. Blood urea nitrogen (BUN)/cr eatinine ratioOrdered By: Shayna Malhotra on 07-09-2024 Urea nitrogen/Creatinine [Mass ratio] 22.2 mg/mg High 10-20 [facility] CBC W/Diff, Automatedon Absolute Lymph 0.82 X10 3/uL Low 0.83-4.51 [facility] Comment on above: Order Comment: 134 Performed By: #### L 500.4050, L506.1000, L501.9985, L100.0100 #### [facility] [address] [place], [address] Absolute Neut 2.6 X10 3/uL Normal 2.0-7.7 [facility] Comment on above: Order Comment: 134 Performed By: #### L 500.4050, L506.1000, L501.9985, L100.0100 #### [facility] [address] [place], [address] Basophils/100 WBC (Bld) 1.0 % Normal 0-1 [facility] Comment on above: Order Comment: 134 Performed By: #### L 500.4050, L506.1000, L501.9985, L100.0100 #### [facility] [address] [place], [address] Eosinophils/100 WBC (Bld) 5.9 % High 0-5 [facility] Comment on above: Order Comment: 134 Performed By: #### L 500.4050, L506.1000, L501.9985, L100.0100 #### [facility] [address] [place], [address] Erythrocyte distribution width (RBC) [Ratio] 15.9 % High 11.6-14.6 [facility] Comment on above: Order Comment: 134 Performed By: #### L 500.4050, L506.1000, L501.9985, L100.0100 #### [facility] [address] [place], [address] Hematocrit (Bld) [Volume fraction] 38.2 % Normal 37-47 [facility] Comment on above: Order Comment: 134 Performed By: #### L 500.4050, L506.1000, L501.9985, L100.0100 #### [facility] [address] [place], [address] Hemoglobin (Bld) [Mass/Vol] 12.4 g/dL Normal 12.0-15.0 [facility] Comment on above: Order Comment: 134 Performed By: #### L 500.4050, L506.1000, L501.9985, L100.0100 #### [facility] [address] [place], [address] IG% 0.200 Normal 0.0-0.9 [facility] Comment on above: Order Comment: 134 Result Comment: IG% - Immature Granulocytes (promyelocytes, myelocytes and metamyelocytes) > 1% indicates that a LEFT SHIFT is Present. Performed By: #### L 500.4050, L506.1000, L501.9985, L100.0100 #### [facility] [address] [place], [address] Lymphocytes/100 WBC (Bld) 20.2 % Normal 19-41 [facility] Comment on above: Order Comment: 134 Performed By: #### L 500.4050, L506.1000, L501.9985, L100.0100 #### [facility] [address] [place], [address] MCH (RBC) [Entitic mass] 29.0 pg Normal 27.0-32.0 [facility] Comment on above: Order Comment: 134 Performed By: #### L 500.4050, L506.1000, L501.9985, L100.0100 #### [facility] [address] [place], [address] MCHC (RBC) [Mass/Vol] 32.5 g/dL Normal 32-36 [facility] Comment on above: Order Comment: 134 Performed By: #### L 500.4050, L506.1000, L501.9985, L100.0100 #### [facility] [address] [place], [address] MCV (RBC) [Entitic vol] 89.5 fL Normal 81-99 [facility] Comment on above: Order Comment: 134 Performed By: #### L 500.4050, L506.1000, L501.9985, L100.0100 #### [facility] [address] [place], [address] Monocytes/100 WBC (Bld) 9.6 % Normal 0-10 [facility] Comment on above: Order Comment: 134 Performed By: #### L 500.4050, L506.1000, L501.9985, L100.0100 #### [facility] [address] [place], [address] Neutrophils/100 WBC (Bld) 63.1 % Normal 47-70 [facility] Comment on above: Order Comment: 134 Performed By: #### L 500.4050, L506.1000, L501.9985, L100.0100 #### [facility] [address] [place], [address] Nucleated RBC (Bld) [#/Vol] 0 10*3/uL Normal 0-5 [facility] Comment on above: Order Comment: 134 Performed By: #### L 500.4050, L506.1000, L501.9985, L100.0100 #### [facility] [address] [place], [address] Platelet mean volume (Bld) [Entitic vol] 11.0 fL Normal 6.2-12.0 [facility] Comment on above: Order Comment: 134 Performed By: #### L 500.4050, L506.1000, L501.9985, L100.0100 #### [facility] [address] [place], [address] Platelets (Bld) [#/Vol] 116 10*3/uL Low 150-450 [facility] Comment on above: Order Comment: 134 Performed By: #### L 500.4050, L506.1000, L501.9985, L100.0100 #### [facility] [address] [place], [address] RBC (Bld) [#/Vol] 4.27 10*6/uL Normal 4.2-5.4 [facility] Comment on above: Order Comment: 134 Performed By: #### L 500.4050, L506.1000, L501.9985, L100.0100 #### [facility] [address] [place], [address] RDW SD 52.1 fl High 35.1-43.9 [facility] Comment on above: Order Comment: 134 Performed By: #### L 500.4050, L506.1000, L501.9985, L100.0100 #### [facility] [address] [place], [address] WBC (Bld) [#/Vol] 4.1 10*3/uL Low 4.4-11.0 [facility] Comment on above: Order Comment: 134 Performed By: #### L 500.4050, L506.1000, L501.9985, L100.0100 #### [facility] [address] [place], [address] Carbon dioxide measurementOr dered By: Shayna Malhotra on 07-09-2024 CO2 [Moles/Vol] 25.0 mmol/L 21.0-32.0 [facility] Chloride measurementOrdered By: Shayna Malhotra on 07-09-2024 Chloride [Moles/Vol] 107 mmol/L 98-107 [facility] Comprehensive Metabolic Prof ilon 07-09-2024 Albumin [Mass/Vol] 3.1 g/dL Low 3.2-5.0 [facility] Comment on above: Order Comment: 134 Performed By: #### L 500.4050, L506.1000, L501.9985, L100.0100 #### [facility] [address] [place], [address] Albumin/Globulin [Mass ratio] 0.6 {ratio} Low 0.9-2.4 [facility] Comment on above: Order Comment: 134 Performed By: #### L 500.4050, L506.1000, L501.9985, L100.0100 #### [facility] [address] [place], [address] ALK P 126 U/L High 45-117 [facility] Comment on above: Order Comment: 134 Performed By: #### L 500.4050, L506.1000, L501.9985, L100.0100 #### [facility] [address] [place], [address] ALT [Catalytic activity/Vol] 27 U/L Normal 13-56 [facility] Comment on above: Order Comment: 134 Performed By: #### L 500.4050, L506.1000, L501.9985, L100.0100 #### [facility] [address] [place], [address] AST [Catalytic activity/Vol] 35 U/L Normal 15-37 [facility] Comment on above: Order Comment: 134 Performed By: #### L 500.4050, L506.1000, L501.9985, L100.0100 #### [facility] [address] [place], [address] Bilirubin [Mass/Vol] 0.70 mg/dL Normal 0.20-1.00 [facility] Comment on above: Order Comment: 134 Result Comment: For patients on eltrombopag therapy, use of Dimension [place] TBIL is not recommended. Performed By: #### L 500.4050, L506.1000, L501.9985, L100.0100 #### [facility] [address] [place], [address] BUN/CRE 22.2 RATIO High 10-20 [facility] Comment on above: Order Comment: 134 Performed By: #### L 500.4050, L506.1000, L501.9985, L100.0100 #### [facility] [address] [place], [address] CA,Total 9.3 mg/dL Normal 8.5-10.1 [facility] Comment on above: Order Comment: 134 Performed By: #### L 500.4050, L506.1000, L501.9985, L100.0100 #### [facility] [address] [place], [address] Chloride [Moles/Vol] 107 mmol/L Normal 98-107 [facility] Comment on above: Order Comment: 134 Performed By: #### L 500.4050, L506.1000, L501.9985, L100.0100 #### [facility] [address] [place], [address] CO2 [Moles/Vol] 25.0 mmol/L Normal 21.0-32.0 [facility] Comment on above: Order Comment: 134 Performed By: #### L 500.4050, L506.1000, L501.9985, L100.0100 #### [facility] [address] [place], [address] Creatinine [Mass/Vol] 0.76 mg/dL Normal 0.55-1.02 [facility] Comment on above: Order Comment: 134 Result Comment: The validity of the calculated GFR GFRAA in patients over 70 years has not been determined. Clinical correlation is essential. Performed By: #### L 500.4050, L506.1000, L501.9985, L100.0100 #### [facility] [address] [place], [address] EST GFR - AA 96 mL/min Normal >60 [facility] Comment on above: Order Comment: 134 Result Comment: Afri can Citizen [place] GFR Calc Performed By: #### L 500.4050, L506.1000, L501.9985, L100.0100 #### [facility] [address] [place], [address] GAP 5 Normal 5-15 [facility] Comment on above: Order Comment: 134 Performed By: #### L 500.4050, L506.1000, L501.9985, L100.0100 #### [facility] [address] [place], [address] GFR/1.73 sq M.predicted among non-blacks MDRD (S/P/Bld) [Vol rate/Area] 79 mL/min/{1.73_m2} Normal >60 [facility] Comment on above: Order Comment: 134 Result Comment: Non- GFR Calc Performed By: #### L 500.4050, L506.1000, L501.9985, L100.0100 #### [facility] [address] [place], [address] Globulin (S) [Mass/Vol] 4.9 g/dL High 2.2-4.2 [facility] Comment on above: Order Comment: 134 Performed By: #### L 500.4050, L506.1000, L501.9985, L100.0100 #### [facility] [address] [place], [address] Glucose [Mass/Vol] 168 mg/dL High 74-106 [facility] Comment on above: Order Comment: 134 Result Comment: Fast ing Glucose result greater than or equal to 126 mg/dL suggests DIABETES MELLITUS per A.D.A. criteria. Performed By: #### L 500.4050, L506.1000, L501.9985, L100.0100 #### [facility] [address] [place], [address] Potassium [Moles/Vol] 4.2 mmol/L Normal 3.5-5.1 [facility] Comment on above: Order Comment: 134 Performed By: #### L 500.4050, L506.1000, L501.9985, L100.0100 #### [facility] [address] [place], [address] Sodium [Moles/Vol] 137 mmol/L Normal 136-145 [facility] Comment on above: Order Comment: 134 Performed By: #### L 500.4050, L506.1000, L501.9985, L100.0100 #### [facility] [address] [place], [address] T PROT 8.0 g/dL Normal 6.4-8.2 [facility] Comment on above: Order Comment: 134 Performed By: #### L 500.4050, L506.1000, L501.9985, L100.0100 #### [facility] [address] [place], [address] Urea nitrogen [Mass/Vol] 17 mg/dL Normal 7-18 [facility] Comment on above: Order Comment: 134 Performed By: #### L 500.4050, L506.1000, L501.9985, L100.0100 #### [facility] [address] [place], [address] Eosinophil percentageOrdered By: Shayna Malhotra on 07-09-2024 Eosinophils/100 WBC (Bld) 5.9 % High 0-5 [facility] Erythrocyte distribution wid th (RBC) [Ratio]Ordered By: Shayna Malhotra on 07-09-2024 Erythrocyte distribution width (RBC) [Entitic vol] 52.1 fL High 35.1-43.9 [facility] Erythrocyte distribution wid th ratioOrdered By: Shayna Malhotra on 07-09-2024 Erythrocyte distribution width (RBC) [Ratio] 15.9 % High 11.6-14.6 [facility] Erythrocyte distribution wid th standard deviationOrdered By: Shayna Malhotra on 07-09-2024 Erythrocyte distribution width (RBC) [Ratio] 52.1 fl High 35.1-43.9 [facility] Estimated glomerular filtrat ion rate (GFR) AmericanOrdered By: Shayna Malhotra on 07-09-2024 Estimated GFR (MDRD) Amer 96 mL/min >60 [facility] Comment on above: GFR Calc Glomerular filtration rate ( GFR) estimationOrdered By: Shayna Malhotra on 07-09-2024 Estimated GFR (MDRD) Non-Af Amer 79 mL/min >60 [facility] Comment on above: Non- GFR Calc GFR/1.73 sq M.predicted among non-blacks MDRD (S/P/Bld) [Vol rate/Area] 79 mL/min/{1.73_m2} >60 [facility] Comment on above: Non- GFR Calc Glucose measurementOrdered B y: Shayna Malhotra on 07-09-2024 Glucose [Mass/Vol] 168 mg/dL High 74-106 [facility] Comment on above: Fasting Glucose resu lt greater than or equal to 126 mg/dL suggests DIABETES MELLITUS per A.D.A. criteria. Hematocrit Auto (Bld) [Volum e fraction]Ordered By: Shayna Malhotra on 07-09-2024 Hematocrit (Bld) [Volume fraction] 38.2 % 37-47 [facility] Hemoglobin A1con 07-09-2024 HbA1c (Bld) [Mass fraction] 6.6 % High 3.8-5.6 [facility] Comment on above: Order Comment: 134 Result Comment: Norm al < 5.7 % Prediabetic 5.7 - 6.4 % Diabetic >or= 6.5 % Please note range changes. Performed By: #### L 500.4050, L506.1000, L501.9985, L100.0100 #### [facility] [address] [place], [address] Hemoglobin A1c percentageOrd ered By: Shayna Malhotra on 07-09-2024 HbA1c (Bld) [Mass fraction] 6.6 % High 3.8-5.6 [facility] Comment on above: Normal < 5.7 % Predi abetic 5.7 - 6.4 % Diabetic >or= 6.5 % Please note range changes. Hemoglobin measurementOrdere d By: Shayna Malhotra on 07-09-2024 Hemoglobin (Bld) [Mass/Vol] 12.4 g/dL 12.0-15.0 [facility] Immature granulocytes/100 WB C Auto (Bld)Ordered By: Shayna Malhotra on 07-09-2024 Immature granulocytes/100 WBC (Bld) 0.200 % 0.0-0.9 [facility] Comment on above: IG% - Immature Granu locytes (promyelocytes, myelocytes and metamyelocytes) > 1% indicates that a LEFT SHIFT is Present. Laboratory - Chemistry and C hemistry - challengeOrdered By: Shayna Malhotra on 07-09-2024 AST [Catalytic activity/Vol] 35 U/L 15-37 [facility] Lymphocytes Auto (Unsp spec) [#/Vol]Ordered By: Shayna Malhotra on 07-09-2024 Lymphocytes (Bld) [#/Vol] 0.82 10*3/uL Low 0.83-4.51 [facility] Lymphocytes/100 WBC Auto (Un sp spec)Ordered By: Shayna Malhotra on 07-09-2024 Lymphocytes/100 WBC (Bld) 20.2 % 19-41 [facility] MCV (mean corpuscular volume ) determinationOrdered By: Shayna Malhotra on 07-09-2024 MCV (RBC) [Entitic vol] 89.5 fL 81-99 [facility] Mean corpuscular hemoglobin (MCH) determinationOrdered By: Shayna Malhotra on 07-09-2024 MCH (RBC) [Entitic mass] 29.0 pg 27.0-32.0 [facility] Mean corpuscular hemoglobin concentration (MCHC) determinationOrdered By: Shayna Malhotra on 07-09-2024 MCHC (RBC) [Mass/Vol] 32.5 g/dL 32-36 [facility] Mean platelet volume determi nationOrdered By: Shayna Malhotra on 07-09-2024 Platelet mean volume (Bld) [Entitic vol] 11.0 fL 6.2-12.0 [facility] Monocyte percentageOrdered B y: Shayna Malhotra on 07-09-2024 Monocytes/100 WBC (Bld) 9.6 % 0-10 [facility] Neutrophil percentageOrdered By: Shayna Malhotra on 07-09-2024 Neutrophils/100 WBC (Bld) 63.1 % 47-70 [facility] Nucleated red blood cell per centageOrdered By: Shayna Malhotra on 07-09-2024 Nucleated RBC/100 WBC (Bld) [Ratio] 0 % 0-5 [facility] Platelet countOrdered By: Maryanne Malhotra on 07-09-2024 Platelets (Bld) [#/Vol] 116 10*3/uL Low 150-450 [facility] Potassium measurementOrdered By: Shayna Malhotra on 07-09-2024 Potassium [Moles/Vol] 4.2 mmol/L 3.5-5.1 [facility] RBC Auto (Bld) [#/Vol]Ordere d By: Shayna Malhotra on 07-09-2024 RBC (Bld) [#/Vol] 4.27 10*6/uL 4.2-5.4 [facility] Serum anion gap measurementO rdered By: Shayna Malhotra on 07-09-2024 Anion gap [Moles/Vol] 5 mmol/L 5-15 [facility] Serum globulin measurementOr dered By: Shayna Malhotra on 07-09-2024 Globulin (S) [Mass/Vol] 4.9 g/dL High 2.2-4.2 [facility] Serum or plasma alanine burnette otransferase (ALT) measurementOrdered By: Shayna Malhotra on 07-09-2024 ALT [Catalytic activity/Vol] 27 U/L 13-56 [facility] Serum or plasma albumin kim urement (mass/volume)Ordered By: Shayna Malhotra on 07-09-2024 Albumin [Mass/Vol] 3.1 g/dL Low 3.2-5.0 [facility] Serum or plasma alkaline regina sphatase measurementOrdered By: Shayna Malhotra on 07-09-2024 ALP [Catalytic activity/Vol] 126 U/L High 45-117 [facility] Serum or plasma calcium kim urement (mass/volume)Ordered By: Shayna Malhotra on 07-09-2024 Calcium [Mass/Vol] 9.3 mg/dL 8.5-10.1 [facility] Serum or plasma creatinine m easurement (mass/volume)Ordered By: Shayna Malhotra on 07-09-2024 Creatinine [Mass/Vol] 0.76 mg/dL 0.55-1.02 [facility] Comment on above: The validity of the calculated GFR & GFRAA in patients over 70 years has not been determined. Clinical correlation is essential. Serum or plasma urea nitroge n measurement (mass/volume)Ordered By: Shayna Malhotra on 07-09-2024 Urea nitrogen [Mass/Vol] 17 mg/dL 7-18 [facility] Sodium levelOrdered By: Paty Malhotra on 07-09-2024 Sodium [Moles/Vol] 137 mmol/L 136-145 [facility] Total proteinOrdered By: Evi Malhotra on 07-09-2024 Protein [Mass/Vol] 8.0 g/dL 6.4-8.2 [facility] Vitamin D,25 Hydroxyon 07-09 Vitamin D 25-OH 44.8 ng/mL Normal [facility] Comment on above: Order Comment: 134 Result Comment: Maricarmen min D 25(OH) Status Range Deficiency <20 ng/mL (50nmol/L) Insufficiency 20 - 30 ng/mL (50 - 75 nmol/L) Sufficiency 30 - 100 ng/mL (75 - 250 nmol/L) Toxicity >100 ng/mL (>250 nmol/L) Performed By: #### L 500.4050, L506.1000, L501.9985, L100.0100 #### [facility] [address] [place], [address] White blood cell (WBC) count Ordered By: Shayna Malhotra on 07-09-2024 WBC (Bld) [#/Vol] 4.1 10*3/uL Low 4.4-11.0 [facility] MR/BMS.Bon 07-04-2024 MR/BMS.[facility] [address] [place] [address] OFFICE VISIT Date of Service: 07/04/24 MR#: [id number] Acct: [id number] Name: VIDA NINA Rep #: [id number] : 1950 Provider: Dr. Shayna gomes MD Age/Sex: 73/F Location: [facility] Status: Signed Intake Vital Signs [...] Ankle Pain Chief Complaint: L ankle pain [employer]r Required: No Accompanied by: Self Is patient [...] a c (more content not included)... Normal [facility] MR/BMS.Mily 05-28-2024 MR/BMS.[facility] [address] [place] [address] OFFICE VISIT Date of Service: 05/28/24 MR#: [id number] Acct: [id number] Name: VIDA NINA Rep #: [id number] : 1950 Provider: Dr. 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 She lives at [facility]. She checked herself in there a few years ago as she felt it was in (more content not included)... Normal [facility] Absolute lymphocyte countOrd ered By: Shayna Malhotra on 07-08-2023 Lymphocytes Auto (Unsp spec) [#/Vol] 0.97 10*3/uL 0.83-4.51 [facility] Automated lymphocyte count a s percentage of total leukocytesOrdered By: Shayna Malhotra on 07-08-2023 Lymphocytes/100 WBC Auto (Unsp spec) 21.6 % 19-41 [facility] Basophil percentageOrdered B y: Shayna Malhotra on 07-08-2023 Basophils/100 WBC (Bld) 0.7 % 0-1 [facility] Bilirubin [Mass/Vol] 0.60 mg/dL 0.20-1.00 [facility] Comment on above: For patients on eltr ombopag therapy, use of Dimension [place] TBIL is not recommended. Chloride [Moles/Vol] 109 mmol/L 98-107 [facility] Eosinophils/100 WBC (Bld) 2.4 % 0-5 [facility] Glucose [Mass/Vol] 204 mg/dL 74-106 [facility] Comment on above: Glucose result great er than or equal to 200 mg/dLsuggests DIABETES MELLITUS per A.D.A. criteria. Hemoglobin (Bld) [Mass/Vol] 12.6 g/dL 12.0-15.0 [facility] Monocytes/100 WBC (Bld) 8.7 % 0-10 [facility] Neutrophils (Bld) [#/Vol] 3.0 10*3/uL 2.0-7.7 [facility] Neutrophils/100 WBC (Bld) 66.4 % 47-70 [facility] Potassium [Moles/Vol] 4.4 mmol/L 3.5-5.1 [facility] Protein [Mass/Vol] 8.0 g/dL 6.4-8.2 [facility] Sodium [Moles/Vol] 137 mmol/L 136-145 [facility] WBC (Bld) [#/Vol] 4.5 10*3/uL 4.4-11.0 [facility] Determination of erythrocyte mean corpuscular volume (MCV)Ordered By: Shayna Malhotra on 07-08-2023 MCV (RBC) [Entitic vol] 90.3 fL 81-99 [facility] Erythrocyte distribution wid th ratioOrdered By: Shayna Malhotra on 07-08-2023 Erythrocyte distribution width (RBC) [Ratio] 15.5 % 11.6-14.6 [facility] Erythrocyte distribution wid th standard deviationOrdered By: Shayna Malhotra on 07-08-2023 Erythrocyte distribution width (RBC) [Entitic vol] 51.9 fL 35.1-43.9 [facility] Hematocrit Auto (Bld) [Volum e fraction]Ordered By: Shayna Malhotra on 07-08-2023 Hematocrit (Bld) [Volume fraction] 39.9 % 37-47 [facility] Immature granulocytes/100 WB C Auto (Bld)Ordered By: Shayna Malhotra on 07-08-2023 Immature granulocytes/100 WBC (Bld) 0.200 % 0.0-0.9 [facility] Comment on above: IG% - Immature Granu locytes (promyelocytes, myelocytes and metamyelocytes) > 1% indicates that a LEFT SHIFT is Present. Laboratory - Chemistry and C hemistry - challengeOrdered By: Shayna Malhotra on 07-08-2023 Albumin/Globulin [Mass ratio] 0.7 {ratio} 0.9-2.4 [facility] ALP [Catalytic activity/Vol] 126 U/L 45-117 [facility] ALT [Catalytic activity/Vol] 34 U/L 13-56 [facility] CO2 [Moles/Vol] 24.0 mmol/L 21.0-32.0 [facility] Globulin (S) [Mass/Vol] 4.7 g/dL 2.2-4.2 [facility] Urea nitrogen/Creatinine [Mass ratio] 17.2 mg/mg 10-20 [facility] Laboratory - Hematology and Cell countsOrdered By: Shayna Malhotra on 07-08-2023 MCH (RBC) [Entitic mass] 28.5 pg 27.0-32.0 [facility] MCHC (RBC) [Mass/Vol] 31.6 g/dL 32-36 [facility] Nucleated RBC/100 WBC (Bld) [Ratio] 0 % 0-5 [facility] Platelets (Bld) [#/Vol] 130 10*3/uL 150-450 [facility] No Panel InformationOrdered By: Shayna Malhotra on 07-08-2023 Estimated GFR (MDRD) Amer 83 mL/min >60 [facility] Comment on above: GFR Calc Estimated GFR (MDRD) Non-Af Amer 68 mL/min >60 [facility] Comment on above: Non- GFR Calc Vitamin D 25-Hydroxy 36.2 ng/mL [facility] Comment on above: Vitamin D 25(OH) Sta tus Range Deficiency <20 ng/mL (50nmol/L) Insufficiency 20 - 30 ng/mL (50 - 75 nmol/L) Sufficiency 30 - 100 ng/mL (75 - 250 nmol/L) Toxicity >100 ng/mL (>250 nmol/L) Platelet mean volume Robert-Ec ker (Bld) [Entitic vol]Ordered By: Shayna Malhotra on 07-08-2023 Platelet mean volume (Bld) [Entitic vol] 11.5 fL 6.2-12.0 [facility] RBC Auto (Bld) [#/Vol]Ordere d By: Shayna Malhotra on 07-08-2023 RBC (Bld) [#/Vol] 4.42 10*6/uL 4.2-5.4 [facility] Serum or plasma calcium kim urement (mass/volume)Ordered By: Shayna Malhotra on 07-08-2023 Calcium [Mass/Vol] 9.3 mg/dL 8.5-10.1 [facility] Serum or plasma creatinine m easurement (mass/volume)Ordered By: Shayna Malhotra on 07-08-2023 Creatinine [Mass/Vol] 0.87 mg/dL 0.55-1.02 [facility] Comment on above: The validity of the calculated GFR & GFRAA in patients over 70 years has not been determined. Clinical correlation is essential. Serum or plasma urea nitroge n measurement (mass/volume)Ordered By: Shayna Malhotra on 07-08-2023 Urea nitrogen [Mass/Vol] 15 mg/dL 7-18 [facility] Thin prep Papanicolaou smear with manual screeningOrdered By: Shayna Malhotra on 07-08-2023 Thin prep Papanicolaou smear with manual screening 3.3 g/dL 3.2-5.0 [facility] Thin prep Papanicolaou smear with manual screening 38 U/L 15-37 [facility] Thin prep Papanicolaou smear with manual screening 4 5-15 [facility] Whole blood hemoglobin A1c/t otal hemoglobin ratio (mass fraction)Ordered By: Shayna Malhotra on 07-08-2023 HbA1c (Bld) [Mass fraction] 7.5 % 3.8-5.6 [facility] Comment on above: Normal < 5.7 % Predi abetic 5.7 - 6.4 % Diabetic >or= 6.5 % Please note range changes. Absolute lymphocyte countOrd ered By: [facility] on 04-08-2023 Lymphocytes Auto (Unsp spec) [#/Vol] 1.16 10*3/uL 0.83-4.51 [facility] Basophil percentageOrdered B y: [facility] on 04-08-2023 Basophils/100 WBC (Bld) 0.6 % 0-1 [facility] Bilirubin [Mass/Vol] 0.60 mg/dL 0.20-1.00 [facility] Comment on above: For patients on eltr ombopag therapy, use of Dimension [place] TBIL is not recommended. Chloride [Moles/Vol] 106 mmol/L 98-107 [facility] Eosinophils/100 WBC (Bld) 2.6 % 0-5 [facility] Glucose [Mass/Vol] 200 mg/dL 74-106 [facility] Comment on above: Glucose result great er than or equal to 200 mg/dLsuggests DIABETES MELLITUS per A.D.A. criteria. Neutrophils (Bld) [#/Vol] 3.3 10*3/uL 2.0-7.7 [facility] Neutrophils/100 WBC (Bld) 65.4 % 47-70 [facility] Potassium [Moles/Vol] 4.2 mmol/L 3.5-5.1 [facility] Protein [Mass/Vol] 8.1 g/dL 6.4-8.2 [facility] Sodium [Moles/Vol] 136 mmol/L 136-145 [facility] WBC (Bld) [#/Vol] 5.0 10*3/uL 4.4-11.0 [facility] Blood erythrocytes count (nu mber/volume)Ordered By: [facility] on 04-08-2023 RBC (Bld) [#/Vol] 4.50 10*6/uL 4.2-5.4 [facility] Blood hemoglobin measurement (mass/volume)Ordered By: [facility] on 04-08-2023 Hemoglobin (Bld) [Mass/Vol] 12.9 g/dL 12.0-15.0 [facility] Blood lymphocytes/100 leukoc ytesOrdered By: [facility] on 04-08-2023 Lymphocytes/100 WBC (Bld) 23.2 % 19-41 [facility] Blood monocytes/100 leukocyt esOrdered By: [facility] on 04-08-2023 Monocytes/100 WBC (Bld) 7.8 % 0-10 [facility] Blood platelet mean volumeOr dered By: [facility] on 04-08-2023 Platelet mean volume (Bld) [Entitic vol] 11.9 fL 6.2-12.0 [facility] Determination of erythrocyte mean corpuscular volume (MCV)Ordered By: [facility] on 04-08-2023 MCV (RBC) [Entitic vol] 89.6 fL 81-99 [facility] Hematocrit Auto (Bld) [Volum e fraction]Ordered By: [facility] on 04-08-2023 Hematocrit (Bld) [Volume fraction] 40.3 % 37-47 [facility] Laboratory - Chemistry and C hemistry - challengeOrdered By: [facility] on 04-08-2023 ALP [Catalytic activity/Vol] 126 U/L 45-117 [facility] ALT [Catalytic activity/Vol] 35 U/L 13-56 [facility] CO2 [Moles/Vol] 24.0 mmol/L 21.0-32.0 [facility] Globulin (S) [Mass/Vol] 4.9 g/dL 2.2-4.2 [facility] Urea nitrogen/Creatinine [Mass ratio] 17.1 mg/mg 10-20 [facility] - Hematology and Cell countsOrdered By: [facility] on 04-08-2023 Erythrocyte distribution width (RBC) [Entitic vol] 51.4 fL 35.1-43.9 [facility] Erythrocyte distribution width (RBC) [Ratio] 15.6 % 11.6-14.6 [facility] Immature granulocytes/100 WBC (Bld) 0.400 % 0.0-0.9 [facility] Comment on above: IG% - Immature Granu locytes (promyelocytes, myelocytes and metamyelocytes) > 1% indicates that a LEFT SHIFT is Present. MCH (RBC) [Entitic mass] 28.7 pg 27.0-32.0 [facility] Nucleated RBC/100 WBC (Bld) [Ratio] 0 % 0-5 [facility] MCHC Auto (RBC) [Mass/Vol]Or dered By: [facility] on 04-08-2023 MCHC (RBC) [Mass/Vol] 32.0 g/dL 32-36 [facility] No Panel InformationOrdered By: [facility] on 04-08-2023 Estimated GFR (MDRD) Amer 82 mL/min >60 [facility] Comment on above: GFR Calc Estimated GFR (MDRD) Non-Af Amer 68 mL/min >60 [facility] Comment on above: Non- GFR Calc Vitamin D 25-Hydroxy 43.2 ng/mL [facility] Comment on above: Vitamin D 25(OH) Sta tus Range Deficiency <20 ng/mL (50nmol/L) Insufficiency 20 - 30 ng/mL (50 - 75 nmol/L) Sufficiency 30 - 100 ng/mL (75 - 250 nmol/L) Toxicity >100 ng/mL (>250 nmol/L) Platelets bldOrdered By: [facility] on 04-08-2023 Platelets (Bld) [#/Vol] 119 10*3/uL 150-450 [facility] Serum or plasma albumin kim urement (mass/volume)Ordered By: [facility] on 04-08-2023 Albumin [Mass/Vol] 3.2 g/dL 3.2-5.0 [facility] Serum or plasma albumin/glob ulin mass ratioOrdered By: [facility] on 04-08-2023 Albumin/Globulin [Mass ratio] 0.7 {ratio} 0.9-2.4 [facility] Serum or plasma calcium kim urement (mass/volume)Ordered By: [facility] on 04-08-2023 Calcium [Mass/Vol] 9.1 mg/dL 8.5-10.1 [facility] Serum or plasma creatinine m easurement (mass/volume)Ordered By: [facility] on 04-08-2023 Creatinine [Mass/Vol] 0.88 mg/dL 0.55-1.02 [facility] Comment on above: The validity of the calculated GFR & GFRAA in patients over 70 years has not been determined. Clinical correlation is essential. Serum or plasma urea nitroge n measurement (mass/volume)Ordered By: [facility] on 04-08-2023 Urea nitrogen [Mass/Vol] 15 mg/dL 7-18 [facility] Thin prep Papanicolaou smear with manual screeningOrdered By: [facility] on 04-08-2023 Thin prep Papanicolaou smear with manual screening 36 U/L 15-37 [facility] Thin prep Papanicolaou smear with manual screening 6 5-15 [facility] Whole blood hemoglobin A1c/t otal hemoglobin ratio (mass fraction)Ordered By: [facility] on 04-08-2023 HbA1c (Bld) [Mass fraction] 7.5 % 3.8-5.6 [facility] Comment on above: Normal < 5.7 % Predi abetic 5.7 - 6.4 % Diabetic >or= 6.5 % Please note range changes. Absolute lymphocyte countOrd ered By: Shayna Malhotra on 10-13-2022 Lymphocytes Auto (Unsp spec) [#/Vol] 1.32 10*3/uL 0.83-4.51 [facility] Basophil percentageOrdered B y: Shayna Malhotra on 10-13-2022 Basophils/100 WBC (Bld) 0.6 % 0-1 [facility] Bilirubin [Mass/Vol] 0.40 mg/dL 0.20-1.00 [facility] Comment on above: For patients on eltr ombopag therapy, use of Dimension [place] TBIL is not recommended. Chloride [Moles/Vol] 106 mmol/L 98-107 [facility] Eosinophils/100 WBC (Bld) 3.5 % 0-5 [facility] Glucose [Mass/Vol] 232 mg/dL 74-106 [facility] Comment on above: Glucose result great er than or equal to 200 mg/dLsuggests DIABETES MELLITUS per A.D.A. criteria. Neutrophils (Bld) [#/Vol] 3.2 10*3/uL 2.0-7.7 [facility] Neutrophils/100 WBC (Bld) 60.7 % 47-70 [facility] Potassium [Moles/Vol] 4.7 mmol/L 3.5-5.1 [facility] Protein [Mass/Vol] 8.1 g/dL 6.4-8.2 [facility] Sodium [Moles/Vol] 137 mmol/L 136-145 [facility] WBC (Bld) [#/Vol] 5.2 10*3/uL 4.4-11.0 [facility] Blood erythrocytes count (nu mber/volume)Ordered By: Shayna Malhotra on 10-13-2022 RBC (Bld) [#/Vol] 4.62 10*6/uL 4.2-5.4 [facility] Blood hemoglobin measurement (mass/volume)Ordered By: Shayna Malhotra on 10-13-2022 Hemoglobin (Bld) [Mass/Vol] 13.1 g/dL 12.0-15.0 [facility] Blood lymphocytes/100 leukoc ytesOrdered By: Shayna Malhotra on 10-13-2022 Lymphocytes/100 WBC (Bld) 25.4 % 19-41 [facility] Blood monocytes/100 leukocyt esOrdered By: Shayna Malhotra on 10-13-2022 Monocytes/100 WBC (Bld) 9.6 % 0-10 [facility] Blood platelet mean volumeOr dered By: Shayna Malhotra on 10-13-2022 Platelet mean volume (Bld) [Entitic vol] 11.1 fL 6.2-12.0 [facility] Determination of erythrocyte mean corpuscular volume (MCV)Ordered By: Shayna Malhotra on 10-13-2022 MCV (RBC) [Entitic vol] 90.3 fL 81-99 [facility] Hematocrit Auto (Bld) [Volum e fraction]Ordered By: Shayna Malhotra on 10-13-2022 Hematocrit (Bld) [Volume fraction] 41.7 % 37-47 [facility] Laboratory - Chemistry and C hemistry - challengeOrdered By: Shayna Malhotra on 10-13-2022 ALP [Catalytic activity/Vol] 153 U/L 45-117 [facility] ALT [Catalytic activity/Vol] 45 U/L 13-56 [facility] CO2 [Moles/Vol] 25.0 mmol/L 21.0-32.0 [facility] Globulin (S) [Mass/Vol] 4.9 g/dL 2.2-4.2 [facility] Urea nitrogen/Creatinine [Mass ratio] 15.7 mg/mg 10-20 [facility] - Hematology and Cell countsOrdered By: Shayna Malhotra on 10-13-2022 Erythrocyte distribution width (RBC) [Entitic vol] 50.5 fL 35.1-43.9 [facility] Erythrocyte distribution width (RBC) [Ratio] 15.1 % 11.6-14.6 [facility] Immature granulocytes/100 WBC (Bld) 0.200 % 0.0-0.9 [facility] Comment on above: IG% - Immature Granu locytes (promyelocytes, myelocytes and metamyelocytes) > 1% indicates that a LEFT SHIFT is Present. MCH (RBC) [Entitic mass] 28.4 pg 27.0-32.0 [facility] Nucleated RBC/100 WBC (Bld) [Ratio] 0 % 0-5 [facility] MCHC Auto (RBC) [Mass/Vol]Or dered By: Shayna Malhotra on 10-13-2022 MCHC (RBC) [Mass/Vol] 31.4 g/dL 32-36 [facility] No Panel InformationOrdered By: Shayna Malhotra on 10-13-2022 Estimated GFR (MDRD) Amer 80 mL/min >60 [facility] Comment on above: GFR Calc Estimated GFR (MDRD) Non-Af Amer 66 mL/min >60 [facility] Comment on above: Non- GFR Calc Vitamin D 25-Hydroxy 57.3 ng/mL [facility] Comment on above: Vitamin D 25(OH) Sta tus Range Deficiency <20 ng/mL (50nmol/L) Insufficiency 20 - 30 ng/mL (50 - 75 nmol/L) Sufficiency 30 - 100 ng/mL (75 - 250 nmol/L) Toxicity >100 ng/mL (>250 nmol/L) Platelets bldOrdered By: Evi Malhotra on 10-13-2022 Platelets (Bld) [#/Vol] 139 10*3/uL 150-450 [facility] Serum or plasma albumin kim urement (mass/volume)Ordered By: Shayna Malhotra on 10-13-2022 Albumin [Mass/Vol] 3.2 g/dL 3.2-5.0 [facility] Serum or plasma albumin/glob ulin mass ratioOrdered By: Shayna Malhotra on 10-13-2022 Albumin/Globulin [Mass ratio] 0.7 {ratio} 0.9-2.4 [facility] Serum or plasma calcium kim urement (mass/volume)Ordered By: Shayna Malhotra on 05-10-2023 Calcium [Mass/Vol] 9.5 mg/dL 8.5-10.1 [facility] Serum or plasma creatinine m easurement (mass/volume)Ordered By: Shayna Malhotra on 10-13-2022 Creatinine [Mass/Vol] 0.89 mg/dL 0.55-1.02 [facility] Comment on above: The validity of the calculated GFR & GFRAA in patients over 70 years has not been determined. Clinical correlation is essential. Serum or plasma urea nitroge n measurement (mass/volume)Ordered By: Shayna Malhotra on 10-13-2022 Urea nitrogen [Mass/Vol] 14 mg/dL 7-18 [facility] Thin prep Papanicolaou smear with manual screeningOrdered By: Shayna Malhotra on 10-13-2022 Thin prep Papanicolaou smear with manual screening 49 U/L 15-37 [facility] Thin prep Papanicolaou smear with manual screening 6 5-15 [facility] No Panel InformationOrdered By: Shayna Malhotra on 08-12-2022 C-Peptide 2.9 ng/mL 1.1-4.4 [facility] Comment on above: C-Peptide reference interval is for fasting patients.Performed at: [facility] [facility] ([place]) [facility] Director: Suhas Deal PhD, Phone: [phone] Absolute lymphocyte countOrd ered By: Shayna Malhotra on 07-13-2022 Lymphocytes Auto (Unsp spec) [#/Vol] 1.18 10*3/uL 0.83-4.51 [facility] Basophil percentageOrdered B y: Shayna Malhotra on 07-13-2022 Basophils/100 WBC (Bld) 0.7 % 0-1 [facility] Bilirubin [Mass/Vol] 0.90 mg/dL 0.20-1.00 [facility] Comment on above: For patients on eltr ombopag therapy, use of Dimension [place] TBIL is not recommended. Chloride [Moles/Vol] 104 mmol/L 98-107 [facility] Eosinophils/100 WBC (Bld) 3.3 % 0-5 [facility] Glucose [Mass/Vol] 314 mg/dL 74-106 [facility] Comment on above: Glucose result great er than or equal to 200 mg/dLsuggests DIABETES MELLITUS per A.D.A. criteria. Neutrophils (Bld) [#/Vol] 3.5 10*3/uL 2.0-7.7 [facility] Neutrophils/100 WBC (Bld) 64.8 % 47-70 [facility] Potassium [Moles/Vol] 5.1 mmol/L 3.5-5.1 [facility] Comment on above: Slight Hemolysis, Re sult may be falsely increased. Protein [Mass/Vol] 8.2 g/dL 6.4-8.2 [facility] Sodium [Moles/Vol] 135 mmol/L 136-145 [facility] WBC (Bld) [#/Vol] 5.4 10*3/uL 4.4-11.0 [facility] Blood erythrocytes count (nu mber/volume)Ordered By: Shayna Malhotra on 07-13-2022 RBC (Bld) [#/Vol] 4.51 10*6/uL 4.2-5.4 [facility] Blood hemoglobin measurement (mass/volume)Ordered By: Shayna Malhotra on 07-13-2022 Hemoglobin (Bld) [Mass/Vol] 12.8 g/dL 12.0-15.0 [facility] Blood lymphocytes/100 leukoc ytesOrdered By: Shayna Malhotra on 07-13-2022 Lymphocytes/100 WBC (Bld) 21.9 % 19-41 [facility] Blood monocytes/100 leukocyt esOrdered By: Shayna Malhotra on 07-13-2022 Monocytes/100 WBC (Bld) 9.1 % 0-10 [facility] Blood platelet mean volumeOr dered By: Shayna Malhotra on 07-13-2022 Platelet mean volume (Bld) [Entitic vol] 11.2 fL 6.2-12.0 [facility] Determination of erythrocyte mean corpuscular volume (MCV)Ordered By: Shayna Malhotra on 07-13-2022 MCV (RBC) [Entitic vol] 87.1 fL 81-99 [facility] Hematocrit Auto (Bld) [Volum e fraction]Ordered By: Shayna Malhotra on 07-13-2022 Hematocrit (Bld) [Volume fraction] 39.3 % 37-47 [facility] Laboratory - Chemistry and C hemistry - challengeOrdered By: Shayna Malhotra on 07-13-2022 ALP [Catalytic activity/Vol] 159 U/L 45-117 [facility] ALT [Catalytic activity/Vol] 35 U/L 13-56 [facility] CO2 [Moles/Vol] 23.0 mmol/L 21.0-32.0 [facility] Globulin (S) [Mass/Vol] 4.9 g/dL 2.2-4.2 [facility] Urea nitrogen/Creatinine [Mass ratio] 16.6 mg/mg 10-20 [facility] Laboratory - Hematology and Cell countsOrdered By: Shayna Malhotra on 07-13-2022 Erythrocyte distribution width (RBC) [Entitic vol] 49.6 fL 35.1-43.9 [facility] Erythrocyte distribution width (RBC) [Ratio] 15.7 % 11.6-14.6 [facility] Immature granulocytes/100 WBC (Bld) 0.200 % 0.0-0.9 [facility] Comment on above: IG% - Immature Granu locytes (promyelocytes, myelocytes and metamyelocytes) > 1% indicates that a LEFT SHIFT is Present. MCH (RBC) [Entitic mass] 28.4 pg 27.0-32.0 [facility] Nucleated RBC/100 WBC (Bld) [Ratio] 0 % 0-5 [facility] MCHC Auto (RBC) [Mass/Vol]Or dered By: Shayna Malhotra on 07-13-2022 MCHC (RBC) [Mass/Vol] 32.6 g/dL 32-36 [facility] No Panel InformationOrdered By: Shayna Malhotra on 07-13-2022 Estimated GFR (MDRD) Amer 74 mL/min >60 [facility] Comment on above: GFR Calc Estimated GFR (MDRD) Non-Af Amer 61 mL/min >60 [facility] Comment on above: Non- GFR Calc Vitamin D 25-Hydroxy 47.5 ng/mL [facility] Comment on above: Vitamin D 25(OH) Sta tus Range Deficiency <20 ng/mL (50nmol/L) Insufficiency 20 - 30 ng/mL (50 - 75 nmol/L) Sufficiency 30 - 100 ng/mL (75 - 250 nmol/L) Toxicity >100 ng/mL (>250 nmol/L) Platelets bldOrdered By: Evi Malhotra on 07-13-2022 Platelets (Bld) [#/Vol] 132 10*3/uL 150-450 [facility] Serum or plasma albumin kim urement (mass/volume)Ordered By: Shayna Malhotra on 07-13-2022 Albumin [Mass/Vol] 3.3 g/dL 3.2-5.0 [facility] Serum or plasma albumin/glob ulin mass ratioOrdered By: Shayna Malhotra on 07-13-2022 Albumin/Globulin [Mass ratio] 0.7 {ratio} 0.9-2.4 [facility] Serum or plasma calcium kim urement (mass/volume)Ordered By: Shayna Malhotra on 07-13-2022 Calcium [Mass/Vol] 9.6 mg/dL 8.5-10.1 [facility] Serum or plasma creatinine m easurement (mass/volume)Ordered By: Shayna Malhotra on 07-13-2022 Creatinine [Mass/Vol] 0.97 mg/dL 0.55-1.02 [facility] Comment on above: The validity of the calculated GFR & GFRAA in patients over 70 years has not been determined. Clinical correlation is essential. Serum or plasma urea nitroge n measurement (mass/volume)Ordered By: Shayna Malhotra on 07-13-2022 Urea nitrogen [Mass/Vol] 16 mg/dL 7-18 [facility] Thin prep Papanicolaou smear with manual screeningOrdered By: Shayna Malhotra on 07-13-2022 Thin prep Papanicolaou smear with manual screening 48 U/L 15-37 [facility] Comment on above: Slight Hemolysis, Re sult may be falsely increased. Thin prep Papanicolaou smear with manual screening 8 5-15 [facility] Absolute lymphocyte countOrd ered By: [facility] on 06-08-2022 Lymphocytes Auto (Unsp spec) [#/Vol] 1.23 10*3/uL 0.83-4.51 [facility] Basophil percentageOrdered B y: [facility] on 06-08-2022 Basophils/100 WBC (Bld) 0.6 % 0-1 [facility] Bilirubin [Mass/Vol] 0.50 mg/dL 0.20-1.00 [facility] Comment on above: For patients on eltr ombopag therapy, use of Dimension [place] TBIL is not recommended. Chloride [Moles/Vol] 103 mmol/L 98-107 [facility] Cholesterol [Mass/Vol] 116 mg/dL <200 [facility] Comment on above: <200 mg/dL Desirable 200-240 mg/dL Borderline >240 mg/dL High Risk Eosinophils/100 WBC (Bld) 3.3 % 0-5 [facility] Glucose [Mass/Vol] 266 mg/dL 74-106 [facility] Comment on above: Glucose result great er than or equal to 200 mg/dLsuggests DIABETES MELLITUS per A.D.A. criteria. Neutrophils (Bld) [#/Vol] 2.9 10*3/uL 2.0-7.7 [facility] Neutrophils/100 WBC (Bld) 61.4 % 47-70 [facility] Potassium [Moles/Vol] 4.3 mmol/L 3.5-5.1 [facility] Protein [Mass/Vol] 7.6 g/dL 6.4-8.2 [facility] Sodium [Moles/Vol] 134 mmol/L 136-145 [facility] Triglyceride [Mass/Vol] 86 mg/dL <199 [facility] Comment on above: The drugs N-Acetylcy steine and Metamizole may falsely depress this assay.Serum Triglycerides Reference Interval Normal <150 mg/dL Borderline high 150 - 199 mg/dL High 200 - 499 mg/dL Very High > or = 500 mg/dL WBC (Bld) [#/Vol] 4.8 10*3/uL 4.4-11.0 [facility] Blood erythrocytes count (nu mber/volume)Ordered By: [facility] on 06-08-2022 RBC (Bld) [#/Vol] 4.47 10*6/uL 4.2-5.4 [facility] Blood hemoglobin measurement (mass/volume)Ordered By: [facility] on 06-08-2022 Hemoglobin (Bld) [Mass/Vol] 12.4 g/dL 12.0-15.0 [facility] Blood lymphocytes/100 leukoc ytesOrdered By: [facility] on 06-08-2022 Lymphocytes/100 WBC (Bld) 25.7 % 19-41 [facility] Blood monocytes/100 leukocyt esOrdered By: [facility] on 06-08-2022 Monocytes/100 WBC (Bld) 8.8 % 0-10 [facility] Blood platelet mean volumeOr dered By: [facility] on 06-08-2022 Platelet mean volume (Bld) [Entitic vol] 11.1 fL 6.2-12.0 [facility] Determination of erythrocyte mean corpuscular volume (MCV)Ordered By: [facility] on 06-08-2022 MCV (RBC) [Entitic vol] 88.8 fL 81-99 [facility] Hematocrit Auto (Bld) [Volum e fraction]Ordered By: [facility] on 06-08-2022 Hematocrit (Bld) [Volume fraction] 39.7 % 37-47 [facility] Laboratory - Chemistry and C hemistry - challengeOrdered By: [facility] on 06-08-2022 ALP [Catalytic activity/Vol] 142 U/L 45-117 [facility] ALT [Catalytic activity/Vol] 36 U/L 13-56 [facility] CO2 [Moles/Vol] 22.0 mmol/L 21.0-32.0 [facility] Globulin (S) [Mass/Vol] 4.8 g/dL 2.2-4.2 [facility] Urea nitrogen/Creatinine [Mass ratio] 17.1 mg/mg 10-20 [facility] Laboratory - Hematology and Cell countsOrdered By: [facility] on 06-08-2022 Erythrocyte distribution width (RBC) [Entitic vol] 48.8 fL 35.1-43.9 [facility] Erythrocyte distribution width (RBC) [Ratio] 14.9 % 11.6-14.6 [facility] Immature granulocytes/100 WBC (Bld) 0.200 % 0.0-0.9 [facility] Comment on above: IG% - Immature Granu locytes (promyelocytes, myelocytes and metamyelocytes) > 1% indicates that a LEFT SHIFT is Present. MCH (RBC) [Entitic mass] 27.7 pg 27.0-32.0 [facility] Nucleated RBC/100 WBC (Bld) [Ratio] 0 % 0-5 [facility] MCHC Auto (RBC) [Mass/Vol]Or dered By: [facility] on 06-08-2022 MCHC (RBC) [Mass/Vol] 31.2 g/dL 32-36 [facility] No Panel InformationOrdered By: [facility] on 06-08-2022 Estimated GFR (MDRD) Amer 82 mL/min >60 [facility] Comment on above: GFR Calc Estimated GFR (MDRD) Non-Af Amer 68 mL/min >60 [facility] Comment on above: Non- GFR Calc Vitamin D 25-Hydroxy 56.8 ng/mL [facility] Comment on above: Vitamin D 25(OH) Sta tus Range Deficiency <20 ng/mL (50nmol/L) Insufficiency 20 - 30 ng/mL (50 - 75 nmol/L) Sufficiency 30 - 100 ng/mL (75 - 250 nmol/L) Toxicity >100 ng/mL (>250 nmol/L) Platelets bldOrdered By: [facility] on 06-08-2022 Platelets (Bld) [#/Vol] 145 10*3/uL 150-450 [facility] Serum or plasma albumin kim urement (mass/volume)Ordered By: [facility] on 06-08-2022 Albumin [Mass/Vol] 2.8 g/dL 3.2-5.0 [facility] Serum or plasma albumin/glob ulin mass ratioOrdered By: [facility] on 06-08-2022 Albumin/Globulin [Mass ratio] 0.6 {ratio} 0.9-2.4 [facility] Serum or plasma calcium kim urement (mass/volume)Ordered By: [facility] on 06-08-2022 Calcium [Mass/Vol] 9.0 mg/dL 8.5-10.1 [facility] Serum or plasma cholesterol in HDL measurement (mass/volume)Ordered By: [facility] on 06-08-2022 Cholesterol in HDL [Mass/Vol] 58 mg/dL >40 [facility] Comment on above: The drugs N-Acetylcy steine and Metamizole may falsely depress this assay. Reference Range HDL <40 mg/dL Low HDL Cholesterol HDL >or= 60 mg/dL High HDL Cholesterol Serum or plasma cholesterol in VLDL measurement (mass/volume)Ordered By: [facility] on 06-08-2022 Cholesterol in VLDL [Mass/Vol] 17 mg/dL 5-40 [facility] Serum or plasma creatinine m easurement (mass/volume)Ordered By: [facility] on 06-08-2022 Creatinine [Mass/Vol] 0.88 mg/dL 0.55-1.02 [facility] Comment on above: The validity of the calculated GFR & GFRAA in patients over 70 years has not been determined. Clinical correlation is essential. Serum or plasma low density lipoprotein (LDL) cholesterol measurement (mass/volume)Ordered By: [facility] on 06-08-2022 Cholesterol in LDL [Mass/Vol] 41 mg/dL 0-130 [facility] Serum or plasma urea nitroge n measurement (mass/volume)Ordered By: [facility] on 06-08-2022 Urea nitrogen [Mass/Vol] 15 mg/dL 7-18 [facility] Thin prep Papanicolaou smear with manual screeningOrdered By: [facility] on 06-08-2022 Thin prep Papanicolaou smear with manual screening 39 U/L 15-37 [facility] Thin prep Papanicolaou smear with manual screening 9 5-15 [facility] Whole blood hemoglobin A1c/t otal hemoglobin ratio (mass fraction)Ordered By: [facility] on 06-08-2022 HbA1c (Bld) [Mass fraction] 8.8 % 3.8-5.6 [facility] Comment on above: Normal < 5.7 % Predi abetic 5.7 - 6.4 % Diabetic >or= 6.5 % Please note range changes. Absolute lymphocyte countOrd ered By: Shayna Malhotra on 04-13-2022 Lymphocytes Auto (Unsp spec) [#/Vol] 1.30 10*3/uL 0.83-4.51 [facility] Basophil percentageOrdered B y: Shayna Malhotra on 04-13-2022 Basophils/100 WBC (Bld) 0.2 % 0-1 [facility] Bilirubin [Mass/Vol] 0.40 mg/dL 0.20-1.00 [facility] Comment on above: For patients on eltr ombopag therapy, use of Dimension [place] TBIL is not recommended. Chloride [Moles/Vol] 106 mmol/L 98-107 [facility] Eosinophils/100 WBC (Bld) 3.5 % 0-5 [facility] Glucose [Mass/Vol] 149 mg/dL 74-106 [facility] Comment on above: Fasting Glucose resu lt greater than or equal to 126 mg/dL suggests DIABETES MELLITUS per A.D.A. criteria. Neutrophils (Bld) [#/Vol] 2.5 10*3/uL 2.0-7.7 [facility] Neutrophils/100 WBC (Bld) 54.6 % 47-70 [facility] Potassium [Moles/Vol] 4.5 mmol/L 3.5-5.1 [facility] Protein [Mass/Vol] 7.8 g/dL 6.4-8.2 [facility] Sodium [Moles/Vol] 138 mmol/L 136-145 [facility] WBC (Bld) [#/Vol] 4.6 10*3/uL 4.4-11.0 [facility] Blood erythrocytes count (nu mber/volume)Ordered By: Shayna Malhotra on 04-13-2022 RBC (Bld) [#/Vol] 4.45 10*6/uL 4.2-5.4 [facility] Blood hemoglobin measurement (mass/volume)Ordered By: Shayna Malhotra on 04-13-2022 Hemoglobin (Bld) [Mass/Vol] 12.9 g/dL 12.0-15.0 [facility] Blood lymphocytes/100 leukoc ytesOrdered By: Shayna Malhotra on 04-13-2022 Lymphocytes/100 WBC (Bld) 28.4 % 19-41 [facility] Blood monocytes/100 leukocyt esOrdered By: Shayna Malhotra on 04-13-2022 Monocytes/100 WBC (Bld) 12.9 % 0-10 [facility] Blood platelet mean volumeOr dered By: Shayna Malhotra on 04-13-2022 Platelet mean volume (Bld) [Entitic vol] 11.1 fL 6.2-12.0 [facility] Determination of erythrocyte mean corpuscular volume (MCV)Ordered By: Shayna Malhotra on 04-13-2022 MCV (RBC) [Entitic vol] 90.8 fL 81-99 [facility] Hematocrit Auto (Bld) [Volum e fraction]Ordered By: Shayna Malhotra on 04-13-2022 Hematocrit (Bld) [Volume fraction] 40.4 % 37-47 [facility] Laboratory - Chemistry and C hemistry - challengeOrdered By: Shayna Malhotra on 04-13-2022 ALP [Catalytic activity/Vol] 144 U/L 45-117 [facility] ALT [Catalytic activity/Vol] 32 U/L 13-56 [facility] CO2 [Moles/Vol] 23.0 mmol/L 21.0-32.0 [facility] Globulin (S) [Mass/Vol] 4.8 g/dL 2.2-4.2 [facility] Urea nitrogen/Creatinine [Mass ratio] 15.3 mg/mg 10-20 [facility] Laboratory - Hematology and Cell countsOrdered By: Shayna Malhotra on 04-13-2022 Erythrocyte distribution width (RBC) [Entitic vol] 47.8 fL 35.1-43.9 [facility] Erythrocyte distribution width (RBC) [Ratio] 14.3 % 11.6-14.6 [facility] Immature granulocytes/100 WBC (Bld) 0.400 % 0.0-0.9 [facility] Comment on above: IG% - Immature Granu locytes (promyelocytes, myelocytes and metamyelocytes) > 1% indicates that a LEFT SHIFT is Present. MCH (RBC) [Entitic mass] 29.0 pg 27.0-32.0 [facility] Nucleated RBC/100 WBC (Bld) [Ratio] 0 % 0-5 [facility] MCHC Auto (RBC) [Mass/Vol]Or dered By: Shayna Malhotra on 04-13-2022 MCHC (RBC) [Mass/Vol] 31.9 g/dL 32-36 [facility] No Panel InformationOrdered By: Shayna Malhotra on 04-13-2022 Estimated GFR (MDRD) Amer 78 mL/min >60 [facility] Comment on above: GFR Calc Estimated GFR (MDRD) Non-Af Amer 65 mL/min >60 [facility] Comment on above: Non- GFR Calc Vitamin D 25-Hydroxy 63.8 ng/mL [facility] Comment on above: Vitamin D 25(OH) Sta tus Range Deficiency <20 ng/mL (50nmol/L) Insufficiency 20 - 30 ng/mL (50 - 75 nmol/L) Sufficiency 30 - 100 ng/mL (75 - 250 nmol/L) Toxicity >100 ng/mL (>250 nmol/L) Platelets bldOrdered By: Evi Malhotra on 04-13-2022 Platelets (Bld) [#/Vol] 157 10*3/uL 150-450 [facility] Serum or plasma albumin kim urement (mass/volume)Ordered By: Shayna Malhotra on 04-13-2022 Albumin [Mass/Vol] 3.0 g/dL 3.2-5.0 [facility] Serum or plasma albumin/glob ulin mass ratioOrdered By: Shayna Malhotra on 04-13-2022 Albumin/Globulin [Mass ratio] 0.6 {ratio} 0.9-2.4 [facility] Serum or plasma calcium kim urement (mass/volume)Ordered By: Shayna Malhotra on 04-13-2022 Calcium [Mass/Vol] 9.0 mg/dL 8.5-10.1 [facility] Serum or plasma creatinine m easurement (mass/volume)Ordered By: Shayna Malhotra on 04-13-2022 Creatinine [Mass/Vol] 0.92 mg/dL 0.55-1.02 [facility] Comment on above: The validity of the calculated GFR & GFRAA in patients over 70 years has not been determined. Clinical correlation is essential. Serum or plasma urea nitroge n measurement (mass/volume)Ordered By: Shayna Malhotra on 04-13-2022 Urea nitrogen [Mass/Vol] 14 mg/dL 7-18 [facility] Thin prep Papanicolaou smear with manual screeningOrdered By: Shayna Malhotra on 04-13-2022 Thin prep Papanicolaou smear with manual screening 40 U/L 15-37 [facility] Thin prep Papanicolaou smear with manual screening 9 5-15 [facility] Basophil percentageon 2021 Bilirubin [Mass/Vol] 0.80 mg/dL 0.20-1.00 [facility] Work Phone: Comment on above: For patients on eltr ombopag therapy, use of Dimension [place] TBIL is not recommended. Chloride [Moles/Vol] 103 mmol/L 98-107 [facility] Work Phone: Glucose [Mass/Vol] 218 mg/dL 74-106 [facility] Work Phone: Comment on above: Glucose result great er than or equal to 200 mg/dLsuggests DIABETES MELLITUS per A.D.A. criteria. Potassium [Moles/Vol] 4.2 mmol/L 3.5-5.1 [facility] Work Phone: Protein [Mass/Vol] 8.0 g/dL 6.4-8.2 [facility] Work Phone: Sodium [Moles/Vol] 135 mmol/L 136-145 [facility] Work Phone: WBC (Bld) [#/Vol] 8.6 10*3/uL 4.4-11.0 [facility] Work Phone: Blood erythrocytes count (nu mber/volume)on 01-01-2022 RBC (Bld) [#/Vol] 4.72 10*6/uL 4.2-5.4 [facility] Work Phone: Blood hemoglobin measurement (mass/volume)on 01-01-2022 Hemoglobin (Bld) [Mass/Vol] 13.5 g/dL 12.0-15.0 [facility] Work Phone: Blood platelet mean volumeon 01-01-2022 Platelet mean volume (Bld) [Entitic vol] 11.0 fL 6.2-12.0 [facility] Work Phone: Determination of erythrocyte mean corpuscular volume (MCV)on 01-01-2022 MCV (RBC) [Entitic vol] 86.2 fL 81-99 [facility] Work Phone: Hematocrit Auto (Bld) [Volum e fraction]on 01-01-2022 Hematocrit (Bld) [Volume fraction] 40.7 % 37-47 [facility] Work Phone: Laboratory - Chemistry and C hemistry - challengeon 01-01-2022 ALP [Catalytic activity/Vol] 140 U/L 45-117 [facility] Work Phone: ALT [Catalytic activity/Vol] 35 U/L 13-56 [facility] Work Phone: CO2 [Moles/Vol] 23.0 mmol/L 21.0-32.0 [facility] Work Phone: Globulin (S) [Mass/Vol] 4.9 g/dL 2.2-4.2 [facility] Work Phone: Urea nitrogen/Creatinine [Mass ratio] 13.8 mg/mg 10-20 [facility] Work Phone: Laboratory - Hematology and Cell countson 01-01-2022 Erythrocyte distribution width (RBC) [Entitic vol] 55.6 fL 35.1-43.9 [facility] Work Phone: Erythrocyte distribution width (RBC) [Ratio] 17.5 % 11.6-14.6 [facility] Work Phone: MCH (RBC) [Entitic mass] 28.6 pg 27.0-32.0 [facility] Work Phone: MCHC Auto (RBC) [Mass/Vol]on 01-01-2022 MCHC (RBC) [Mass/Vol] 33.2 g/dL 32-36 [facility] Work Phone: No Panel Informationon 01-01 Estimated GFR (MDRD) Amer 64 mL/min >60 [facility] Work Phone: Comment on above: GFR Calc Estimated GFR (MDRD) Non-Af Amer 53 mL/min >60 [facility] Work Phone: Comment on above: Non- GFR Calc Platelets bldon 01-01-2022 Platelets (Bld) [#/Vol] 141 10*3/uL 150-450 [facility] Work Phone: Serum or plasma albumin kim urement (mass/volume)on 01-01-2022 Albumin [Mass/Vol] 3.1 g/dL 3.2-5.0 [facility] Work Phone: Serum or plasma albumin/glob ulin mass ratioon 01-01-2022 Albumin/Globulin [Mass ratio] 0.6 {ratio} 0.9-2.4 [facility] Work Phone: Serum or plasma calcium kim urement (mass/volume)on 01-01-2022 Calcium [Mass/Vol] 9.3 mg/dL 8.5-10.1 [facility] Work Phone: Serum or plasma creatinine m easurement (mass/volume)on 01-01-2022 Creatinine [Mass/Vol] 1.09 mg/dL 0.55-1.02 [facility] Work Phone: Comment on above: The validity of the calculated GFR & GFRAA in patients over 70 years has not been determined. Clinical correlation is essential. Serum or plasma urea nitroge n measurement (mass/volume)on 01-01-2022 Urea nitrogen [Mass/Vol] 15 mg/dL 7-18 [facility] Work Phone: Thin prep Papanicolaou smear with manual screeningon 01-01-2022 Thin prep Papanicolaou smear with manual screening 36 U/L 15-37 [facility] Work Phone: Thin prep Papanicolaou smear with manual screening 9 5-15 [facility] Work Phone: Whole blood hemoglobin A1c/t otal hemoglobin ratio (mass fraction)on 01-01-2022 HbA1c (Bld) [Mass fraction] 8.7 % 3.8-5.6 [facility] Work Phone: Comment on above: Normal < 5.7 % Predi abetic 5.7 - 6.4 % Diabetic >or= 6.5 % Please note range changes. Basophil percentageon 2021 Bilirubin [Mass/Vol] 0.40 mg/dL 0.20-1.00 [facility] Work Phone: Comment on above: For patients on eltr ombopag therapy, use of Dimension [place] TBIL is not recommended. Chloride [Moles/Vol] 103 mmol/L 98-107 [facility] Work Phone: Glucose [Mass/Vol] 216 mg/dL 74-106 [facility] Work Phone: Comment on above: Glucose result great er than or equal to 200 mg/dLsuggests DIABETES MELLITUS per A.D.A. criteria. Potassium [Moles/Vol] 4.4 mmol/L 3.5-5.1 [facility] Work Phone: Protein [Mass/Vol] 6.5 g/dL 6.4-8.2 [facility] Work Phone: Sodium [Moles/Vol] 136 mmol/L 136-145 [facility] Work Phone: WBC (Bld) [#/Vol] 6.2 10*3/uL 4.4-11.0 [facility] Work Phone: Blood erythrocytes count (nu mber/volume)on 12-01-2021 RBC (Bld) [#/Vol] 4.09 10*6/uL 4.2-5.4 [facility]: Blood hemoglobin measurement (mass/volume)on 12-01-2021 Hemoglobin (Bld) [Mass/Vol] 11.3 g/dL 12.0-15.0 [facility] Work Phone: Blood platelet mean volumeon 12-01-2021 Platelet mean volume (Bld) [Entitic vol] 10.8 fL 6.2-12.0 [facility] Work Phone: Determination of erythrocyte mean corpuscular volume (MCV)on 12-01-2021 MCV (RBC) [Entitic vol] 85.8 fL 81-99 [facility] Work Phone: Comment on above: Delta: 79.2 on 11/27 Hematocrit Auto (Bld) [Volum e fraction]on 12-01-2021 Hematocrit (Bld) [Volume fraction] 35.1 % 37-47 [facility] Work Phone: Laboratory - Chemistry and C hemistry - challengeon 12-01-2021 ALP [Catalytic activity/Vol] 130 U/L 45-117 [facility] Work Phone: ALT [Catalytic activity/Vol] 48 U/L 13-56 [facility] Work Phone: CK [Catalytic activity/Vol] 27 U/L 26-192 [facility] Work Phone: CO2 [Moles/Vol] 27.0 mmol/L 21.0-32.0 [facility] Work Phone: Globulin (S) [Mass/Vol] 4.2 g/dL 2.2-4.2 [facility] Work Phone: Urea nitrogen/Creatinine [Mass ratio] 31.2 mg/mg 10-20 [facility] Work Phone: Laboratory - Hematology and Cell countson 12-01-2021 Erythrocyte distribution width (RBC) [Entitic vol] 48.3 fL 35.1-43.9 [facility] Work Phone: Erythrocyte distribution width (RBC) [Ratio] 15.4 % 11.6-14.6 [facility] Work Phone: MCH (RBC) [Entitic mass] 27.6 pg 27.0-32.0 [facility] Work Phone: MCHC Auto (RBC) [Mass/Vol]on 12-01-2021 MCHC (RBC) [Mass/Vol] 32.2 g/dL 32-36 [facility] Work Phone: Comment on above: Delta: 34.7 on 11/27 No Panel Informationon 12-01 Estimated GFR (MDRD) Amer 91 mL/min >60 [facility] Work Phone: Comment on above: GFR Calc Estimated GFR (MDRD) Non-Af Amer 76 mL/min >60 [facility] Work Phone: Comment on above: Non- GFR Calc Platelets bldon 12-01-2021 Platelets (Bld) [#/Vol] 231 10*3/uL 150-450 [facility] Work Phone: Serum or plasma albumin kim urement (mass/volume)on 12-01-2021 Albumin [Mass/Vol] 2.3 g/dL 3.2-5.0 [facility] Work Phone: Serum or plasma albumin/glob ulin mass ratioon 12-01-2021 Albumin/Globulin [Mass ratio] 0.5 {ratio} 0.9-2.4 [facility] Work Phone: Serum or plasma calcium kim urement (mass/volume)on 12-01-2021 Calcium [Mass/Vol] 8.8 mg/dL 8.5-10.1 [facility] Work Phone: Serum or plasma creatinine m easurement (mass/volume)on 12-01-2021 Creatinine [Mass/Vol] 0.80 mg/dL 0.55-1.02 [facility] Work Phone: Comment on above: The validity of the calculated GFR & GFRAA in patients over 70 years has not been determined. Clinical correlation is essential. Serum or plasma urea nitroge n measurement (mass/volume)on 12-01-2021 Urea nitrogen [Mass/Vol] 25 mg/dL 7-18 [facility] Work Phone: Thin prep Papanicolaou smear with manual screeningon 12-01-2021 Thin prep Papanicolaou smear with manual screening 69 U/L 15-37 [facility] Work Phone: Thin prep Papanicolaou smear with manual screening 6 5-15 [facility] Work Phone: Whole blood hemoglobin A1c/t otal hemoglobin ratio (mass fraction)on 12-01-2021 HbA1c (Bld) [Mass fraction] 10.6 % 3.8-5.6 [facility] Work Phone: Comment on above: Normal < 5.7 % Predi abetic 5.7 - 6.4 % Diabetic >or= 6.5 % Please note range changes. Basophil percentageon 2021 Bilirubin [Mass/Vol] 0.40 mg/dL 0.20-1.00 [facility] Work Phone: Comment on above: For patients on eltr ombopag therapy, use of Dimension [place] TBIL is not recommended. Chloride [Moles/Vol] 102 mmol/L 98-107 [facility] Work Phone: Glucose [Mass/Vol] 256 mg/dL 74-106 [facility] Work Phone: Comment on above: Glucose result great er than or equal to 200 mg/dLsuggests DIABETES MELLITUS per A.D.A. criteria. Potassium [Moles/Vol] 4.4 mmol/L 3.5-5.1 [facility] Work Phone: Protein [Mass/Vol] 7.0 g/dL 6.4-8.2 [facility] Work Phone: Sodium [Moles/Vol] 133 mmol/L 136-145 [facility] Work Phone: WBC (Bld) [#/Vol] 5.6 10*3/uL 4.4-11.0 [facility] Work Phone: Blood erythrocytes count (nu mber/volume)on 11-27-2021 RBC (Bld) [#/Vol] 4.47 10*6/uL 4.2-5.4 [facility] Work Phone: Blood hemoglobin measurement (mass/volume)on 11-27-2021 Hemoglobin (Bld) [Mass/Vol] 12.3 g/dL 12.0-15.0 [facility] Work Phone: Blood platelet mean volumeon 11-27-2021 Platelet mean volume (Bld) [Entitic vol] 11.9 fL 6.2-12.0 [facility] Work Phone: Determination of erythrocyte mean corpuscular volume (MCV)on 11-27-2021 MCV (RBC) [Entitic vol] 79.2 fL 81-99 [facility] Work Phone: Comment on above: Delta: 83.4 on 11/24 Hematocrit Auto (Bld) [Volum e fraction]on 11-27-2021 Hematocrit (Bld) [Volume fraction] 35.4 % 37-47 [facility] Work Phone: Laboratory - Chemistry and C hemistry - challengeon 11-27-2021 ALP [Catalytic activity/Vol] 127 U/L 45-117 [facility] Work Phone: ALT [Catalytic activity/Vol] 28 U/L 13-56 [facility] Work Phone: CO2 [Moles/Vol] 25.0 mmol/L 21.0-32.0 [facility] Work Phone: Globulin (S) [Mass/Vol] 4.6 g/dL 2.2-4.2 [facility] Work Phone: Urea nitrogen/Creatinine [Mass ratio] 15.9 mg/mg 10-20 [facility] Work Phone: Laboratory - Hematology and Cell countson 11-27-2021 Erythrocyte distribution width (RBC) [Entitic vol] 41.4 fL 35.1-43.9 [facility] Work Phone: Erythrocyte distribution width (RBC) [Ratio] 14.5 % 11.6-14.6 [facility] Work Phone: MCH (RBC) [Entitic mass] 27.5 pg 27.0-32.0 [facility] Work Phone: MCHC Auto (RBC) [Mass/Vol]on 11-27-2021 MCHC (RBC) [Mass/Vol] 34.7 g/dL 32-36 [facility]: No Panel Informationon 11-27 Estimated GFR (MDRD) Amer 108 mL/min >60 [facility] Work Phone: Comment on above: GFR Calc Estimated GFR (MDRD) Non-Af Amer 89 mL/min >60 [facility] Work Phone: Comment on above: Non- GFR Calc Platelets bldon 11-27-2021 Platelets (Bld) [#/Vol] 154 10*3/uL 150-450 [facility] Work Phone: Serum or plasma albumin kim urement (mass/volume)on 11-27-2021 Albumin [Mass/Vol] 2.4 g/dL 3.2-5.0 [facility] Work Phone: Serum or plasma albumin/glob ulin mass ratioon 11-27-2021 Albumin/Globulin [Mass ratio] 0.5 {ratio} 0.9-2.4 [facility] Work Phone: Serum or plasma calcium kim urement (mass/volume)on 11-27-2021 Calcium [Mass/Vol] 8.9 mg/dL 8.5-10.1 [facility] Work Phone: Serum or plasma creatinine m easurement (mass/volume)on 11-27-2021 Creatinine [Mass/Vol] 0.69 mg/dL 0.55-1.02 [facility] Work Phone: Comment on above: The validity of the calculated GFR & GFRAA in patients over 70 years has not been determined. Clinical correlation is essential. Serum or plasma urea nitroge n measurement (mass/volume)on 11-27-2021 Urea nitrogen [Mass/Vol] 11 mg/dL 7-18 [facility] Work Phone: Thin prep Papanicolaou smear with manual screeningon 11-27-2021 Thin prep Papanicolaou smear with manual screening 31 U/L 15-37 [facility] Work Phone: Thin prep Papanicolaou smear with manual screening 6 5-15 [facility] Work Phone: Absolute lymphocyte counton 11-24-2021 Lymphocytes Auto (Unsp spec) [#/Vol] 1.01 10*3/uL 0.83-4.51 [facility] Work Phone: Basophil percentageon 2021 Basophil percentage 3.5 mg/dL 2.5-4.9 [facility] Work Phone: Basophils/100 WBC (Bld) 0.4 % 0-1 [facility] Work Phone: Bilirubin [Mass/Vol] 0.40 mg/dL 0.20-1.00 [facility] Work Phone: Comment on above: For patients on eltr ombopag therapy, use of Dimension [place] TBIL is not recommended. Chloride [Moles/Vol] 105 mmol/L 98-107 [facility] Work Phone: Eosinophils/100 WBC (Bld) 2.3 % 0-5 [facility] Work Phone: Glucose [Mass/Vol] 321 mg/dL 74-106 [facility] Work Phone: Comment on above: Glucose result great er than or equal to 200 mg/dLsuggests DIABETES MELLITUS per A.D.A. criteria. Neutrophils (Bld) [#/Vol] 3.8 10*3/uL 2.0-7.7 [facility] Work Phone: Neutrophils/100 WBC (Bld) 66.8 % 47-70 [facility] Work Phone: Potassium [Moles/Vol] 4.2 mmol/L 3.5-5.1 [facility] Work Phone: Protein [Mass/Vol] 6.6 g/dL 6.4-8.2 [facility] Work Phone: Sodium [Moles/Vol] 133 mmol/L 136-145 [facility] Work Phone: WBC (Bld) [#/Vol] 5.6 10*3/uL 4.4-11.0 [facility] Work Phone: Blood erythrocytes count (nu mber/volume)on 11-24-2021 RBC (Bld) [#/Vol] 3.91 10*6/uL 4.2-5.4 [facility] Work Phone: Blood hemoglobin measurement (mass/volume)on 11-24-2021 Hemoglobin (Bld) [Mass/Vol] 11.0 g/dL 12.0-15.0 [facility] Work Phone: Blood lymphocytes/100 leukoc yteson 11-24-2021 Lymphocytes/100 WBC (Bld) 17.9 % 19-41 [facility] Work Phone: Blood monocytes/100 leukocyt eson 11-24-2021 Monocytes/100 WBC (Bld) 12.1 % 0-10 [facility] Work Phone: Blood platelet mean volumeon 11-24-2021 Platelet mean volume (Bld) [Entitic vol] 11.4 fL 6.2-12.0 [facility] Work Phone: Determination of erythrocyte mean corpuscular volume (MCV)on 11-24-2021 MCV (RBC) [Entitic vol] 83.4 fL 81-99 [facility] Work Phone: Glucose Glucometer (BldC) [M ass/Vol]on 11-24-2021 Glucose [Mass/Vol] 307 mg/dL 74-106 [facility] Work Phone: Comment on above: MANAGEMENT OF PATIEN T CARE PER NURSING PROTOCOL Glucose [Mass/Vol] 339 mg/dL 74-106 [facility] Work Phone: Comment on above: MANAGEMENT OF PATIEN T CARE PER NURSING PROTOCOL Hematocrit Auto (Bld) [Volum e fraction]on 11-24-2021 Hematocrit (Bld) [Volume fraction] 32.6 % 37-47 [facility] Work Phone: Laboratory - Chemistry and C hemistry - challengeon 11-24-2021 ALP [Catalytic activity/Vol] 116 U/L 45-117 [facility] Work Phone: ALT [Catalytic activity/Vol] 33 U/L 13-56 [facility] Work Phone: CK [Catalytic activity/Vol] 500 U/L 26-192 [facility] Work Phone: CO2 [Moles/Vol] 22.0 mmol/L 21.0-32.0 [facility] Work Phone: Globulin (S) [Mass/Vol] 4.4 g/dL 2.2-4.2 [facility] Work Phone: Magnesium [Mass/Vol] 2.3 mg/dL 1.6-2.6 [facility] Work Phone: Urea nitrogen/Creatinine [Mass ratio] 24.3 mg/mg 10-20 [facility] Work Phone: Laboratory - Hematology and Cell countson 11-24-2021 Erythrocyte distribution width (RBC) [Entitic vol] 45.1 fL 35.1-43.9 [facility] Work Phone: Erythrocyte distribution width (RBC) [Ratio] 14.9 % 11.6-14.6 [facility] Work Phone: Immature granulocytes/100 WBC (Bld) 0.500 % 0.0-0.9 [facility] Work Phone: Comment on above: IG% - Immature Granu locytes (promyelocytes, myelocytes and metamyelocytes) > 1% indicates that a LEFT SHIFT is Present. MCH (RBC) [Entitic mass] 28.1 pg 27.0-32.0 [facility] Work Phone: Nucleated RBC/100 WBC (Bld) [Ratio] 0 % 0-5 [facility] Work Phone: MCHC Auto (RBC) [Mass/Vol]on 11-24-2021 MCHC (RBC) [Mass/Vol] 33.7 g/dL 32-36 [facility] Work Phone: No Panel Informationon 11-24 Estimated Creatinine Clearance Calc 51.54 ml/min [facility] Work Phone: Estimated GFR (MDRD) Amer 76 mL/min >60 [facility] Work Phone: Comment on above: GFR Calc Estimated GFR (MDRD) Non-Af Amer 62 mL/min >60 [facility] Work Phone: Comment on above: Non- GFR Calc Platelets bldon 11-24-2021 Platelets (Bld) [#/Vol] 107 10*3/uL 150-450 [facility] Work Phone: Serum or plasma albumin kim urement (mass/volume)on 11-24-2021 Albumin [Mass/Vol] 2.2 g/dL 3.2-5.0 [facility] Work Phone: Serum or plasma albumin/glob ulin mass ratioon 11-24-2021 Albumin/Globulin [Mass ratio] 0.5 {ratio} 0.9-2.4 [facility] Work Phone: Serum or plasma calcium kim urement (mass/volume)on 11-24-2021 Calcium [Mass/Vol] 8.5 mg/dL 8.5-10.1 [facility] Work Phone: Serum or plasma creatinine m easurement (mass/volume)on 11-24-2021 Creatinine [Mass/Vol] 0.94 mg/dL 0.55-1.02 [facility] Work Phone: Comment on above: The validity of the calculated GFR & GFRAA in patients over 70 years has not been determined. Clinical correlation is essential. Serum or plasma urea nitroge n measurement (mass/volume)on 11-24-2021 Urea nitrogen [Mass/Vol] 23 mg/dL 7-18 [facility] Work Phone: Thin prep Papanicolaou smear with manual screeningon 11-24-2021 Thin prep Papanicolaou smear with manual screening 49 U/L 15-37 [facility] Work Phone: Thin prep Papanicolaou smear with manual screening 6 5-15 [facility] Work Phone: Absolute lymphocyte counton 11-22-2021 Lymphocytes Auto (Unsp spec) [#/Vol] 0.27 10*3/uL 0.83-4.51 [facility] Work Phone: Basophil percentageon 2021 Lactate [Moles/Vol] 2.7 mmol/L 0.4-2.0 [facility] Work Phone: Comment on above: Critical Result(s) C alled at: 19:01:05 11/22/2021 by: Sintia Hernandez to Pamela Ely Results read back by same. Basophil percentage >100 SEEN /hpf 0-5 [facility] Work Phone: Lactate [Moles/Vol] 4.1 mmol/L 0.4-2.0 [facility] Work Phone: Comment on above: Critical Result(s) C alled at: 14:35:39 11/22/2021 by: Derik Florez. Milad Cordova RN (ER). Results read back by same. Basophils/100 WBC (Bld) 0.3 % 0-1 [facility] Work Phone: Bilirubin [Mass/Vol] 1.00 mg/dL 0.20-1.00 [facility] Work Phone: Comment on above: For patients on eltr ombopag therapy, use of Dimension [place] TBIL is not recommended. Chloride [Moles/Vol] 97 mmol/L 98-107 [facility] Work Phone: Eosinophils/100 WBC (Bld) 0.0 % 0-5 [facility] Work Phone: Glucose [Mass/Vol] 358 mg/dL 74-106 [facility] Work Phone: Comment on above: Glucose result great er than or equal to 200 mg/dLsuggests DIABETES MELLITUS per A.D.A. criteria. Neutrophils (Bld) [#/Vol] 2.6 10*3/uL 2.0-7.7 [facility] Work Phone: Neutrophils/100 WBC (Bld) 89.3 % 47-70 [facility] Work Phone: Potassium [Moles/Vol] 4.9 mmol/L 3.5-5.1 [facility] Work Phone: Comment on above: Moderate Hemolysis, Result may be falsely increased. Protein [Mass/Vol] 7.8 g/dL 6.4-8.2 [facility] Work Phone: Sodium [Moles/Vol] 130 mmol/L 136-145 [facility] Work Phone: WBC (Bld) [#/Vol] 2.9 10*3/uL 4.4-11.0 [facility] Work Phone: Bilirubin Test strip Ql (U)o n 11-22-2021 Bilirubin Ql (U) Negative Negative [facility] Work Phone: Blood erythrocytes count (nu mber/volume)on 11-22-2021 RBC (Bld) [#/Vol] 4.66 10*6/uL 4.2-5.4 [facility] Work Phone: Blood hemoglobin measurement (mass/volume)on 11-22-2021 Hemoglobin (Bld) [Mass/Vol] 12.9 g/dL 12.0-15.0 [facility] Work Phone: Blood lymphocytes/100 leukoc yteson 11-22-2021 Lymphocytes/100 WBC (Bld) 9.4 % 19-41 [facility] Work Phone: Blood manual differential co mment interpretation (narrative result)on 11-22-2021 Manual differential comment Neftali (Bld) [Interp] SCANNED [facility] Work Phone: Comment on above: FEW BANDS NOTED Blood monocytes/100 leukocyt eson 11-22-2021 Monocytes/100 WBC (Bld) 0.7 % 0-10 [facility] Work Phone: Blood platelet mean volumeon 11-22-2021 Platelet mean volume (Bld) [Entitic vol] 11.0 fL 6.2-12.0 [facility] Work Phone: Determination of erythrocyte mean corpuscular volume (MCV)on 11-22-2021 MCV (RBC) [Entitic vol] 83.7 fL 81-99 [facility] Work Phone: Hematocrit Auto (Bld) [Volum e fraction]on 11-22-2021 Hematocrit (Bld) [Volume fraction] 39.0 % 37-47 [facility] Work Phone: INR in Blood by Coagulation assayon 11-22-2021 INR Coag (Bld) [Relative time] 1.6 {INR} [facility] Work Phone: Ketones Test strip Ql (U)on 11-22-2021 Ketones Ql (U) 15 mg/dl Negative [facility] Work Phone: Laboratory - Chemistry and C hemistry - challengeon 11-22-2021 ALP [Catalytic activity/Vol] 170 U/L 45-117 [facility] Work Phone: ALT [Catalytic activity/Vol] 33 U/L 13-56 [facility] Work Phone: CO2 [Moles/Vol] 22.0 mmol/L 21.0-32.0 [facility] Work Phone: Globulin (S) [Mass/Vol] 5.0 g/dL 2.2-4.2 [facility] Work Phone: Urea nitrogen/Creatinine [Mass ratio] 19.1 mg/mg 10-20 [facility] Work Phone: Laboratory - Coagulationon 0 11-22-2021 aPTT Coag (Bld) [Time] 33.5 s 24.1-36.2 [facility] Work Phone: PT Coag (PPP) [Time] 18.6 s 11.7-14.9 [facility] Work Phone: Laboratory - Hematology and Cell countson 11-22-2021 Erythrocyte distribution width (RBC) [Entitic vol] 44.4 fL 35.1-43.9 [facility] Work Phone: Erythrocyte distribution width (RBC) [Ratio] 14.6 % 11.6-14.6 [facility] Work Phone: Immature granulocytes/100 WBC (Bld) 0.300 % 0.0-0.9 [facility] Work Phone: Comment on above: IG% - Immature Granu locytes (promyelocytes, myelocytes and metamyelocytes) > 1% indicates that a LEFT SHIFT is Present. MCH (RBC) [Entitic mass] 27.7 pg 27.0-32.0 [facility] Work Phone: Nucleated RBC/100 WBC (Bld) [Ratio] 0 % 0-5 [facility] Work Phone: Laboratory - Microbiology an d Antimicrobial susceptibilityon 11-22-2021 SARS-CoV-2 (COVID-19) RNA SALLY+probe Ql (Unsp spec) Not detected Not Detect [facility] Work Phone: Comment on above: Normal [...] 11-22-2021 MCHC (RBC) [Mass/Vol] 33.1 g/dL 32-36 [facility]: Mucus LM Ql (Urine sed)on Mucus Ql (Urine sed) 0 SEEN /hpf [facility] Work Phone: Nitrite Test strip Ql (U)on 11-22-2021 Nitrite Ql (U) Negative Negative [facility] Work Phone: No Panel Informationon 11-22 Troponin I High Sensitivity 217 pg/mL 3.0-54.0 [facility] Work Phone: Comment on above: Critical Result(s) C alled at: 20:27:57 11/22/2021 by: Sintia Hernandez to Anthony Butcher. Results read back by same. Please Note: New Test Units and Gender Specific Reference Ranges. For more information see Policy Stat Procedure [place] High Sensitivity Troponin (TNIH) and attachments. Troponin I High Sensitivity 274 pg/mL 3.0-54.0 [facility] Work Phone: Comment on above: Critical Result(s) C alled at: 17:12:08 11/22/2021 by: Sintia Hernandez by Lila Cordova. Results read back by same. Please Note: New Test Units and Gender Specific Reference Ranges. For more information see Policy Stat Procedure [place] High Sensitivity Troponin (TNIH) and attachments. Estimated Creatinine Clearance Calc 34.36 ml/min [facility] Work Phone: Estimated GFR (MDRD) Amer 48 mL/min >60 [facility] Work Phone: Comment on above: GFR Calc Estimated GFR (MDRD) Non-Af Amer 39 mL/min >60 [facility] Work Phone: Comment on above: Non- GFR Calc Platelets bldon 11-22-2021 Platelets (Bld) [#/Vol] 121 10*3/uL 150-450 [facility] Work Phone: Protein Test strip Ql (U)on 11-22-2021 Protein Ql (U) 100 mg/dl Negative [facility] Work Phone: Review by pathologiston 11-04 Pathologist review Neftali (Unsp spec) [Interp] May foll [facility] Work Phone: Pathologist review Neftali (Unsp spec) [Interp] Reviewed [facility] Work Phone: Comment on above: Previous reported re sult: Analisa jacobson Edited by: BELLA on 11/23/21:[id number] Thrombocytopenia.Clinical correlation necessary.Cedric Cardoza M.D. 11/23/21 AMENDED REPORT 11/23/21 [id number] PATH REV previously reported as: Analisa jacobson Serum or plasma albumin kim urement (mass/volume)on 11-22-2021 Albumin [Mass/Vol] 2.8 g/dL 3.2-5.0 [facility] Work Phone: Serum or plasma albumin/glob ulin mass ratioon 11-22-2021 Albumin/Globulin [Mass ratio] 0.6 {ratio} 0.9-2.4 [facility] Work Phone: Serum or plasma calcium kim urement (mass/volume)on 11-22-2021 Calcium [Mass/Vol] 8.9 mg/dL 8.5-10.1 [facility] Work Phone: Serum or plasma creatinine m easurement (mass/volume)on 11-22-2021 Creatinine [Mass/Vol] 1.41 mg/dL 0.55-1.02 [facility] Work Phone: Comment on above: The validity of the calculated GFR & GFRAA in patients over 70 years has not been determined. Clinical correlation is essential. Serum or plasma urea nitroge n measurement (mass/volume)on 11-22-2021 Urea nitrogen [Mass/Vol] 27 mg/dL 7-18 [facility] Work Phone: Squamous epithelial cells de tection in urine sediment by light microscopyon 11-22-2021 Epithelial cells.squamous LM Ql (Urine sed) 0 SEEN /hpf 5-10 [facility] Work Phone: Thin prep Papanicolaou smear with manual screeningon 11-22-2021 Thin prep Papanicolaou smear with manual screening 65 U/L 15-37 [facility] Work Phone: Comment on above: Moderate Hemolysis, Result may be falsely increased. Thin prep Papanicolaou smear with manual screening 11 5-15 [facility] Work Phone: Urine blood detectionon 11-04 RBC Ql (U) 250 /ul Negative [facility] Work Phone: RBC Ql (U) 0 SEEN /hpf 0-5 [facility] Work Phone: Urine clarityon 11-22-2021 Clarity (U) Cloudy Clear [facility] Work Phone: Urine color determinationon 11-22-2021 Color (U) Yellow Yellow [facility] Work Phone: Urine glucose detectionon Glucose Ql (U) 250 mg/dl Normal [facility] Work Phone: Urine leukocyte esterase det ection by dipstickon 11-22-2021 Leukocyte esterase Test strip Ql (U) 500 /ul Negative [facility] Work Phone: Urine pHon 11-22-2021 pH (U) 6.0 [pH] 5.0 - 8.0 [facility] Work Phone: Urine sediment bacteria coun t by microscopy (number/high power field)on 11-22-2021 Bacteria LM.HPF (Urine sed) [#/Area] 3 /[HPF] None Seen [facility] Work Phone: Urine specific gravity measu rementon 11-22-2021 Specific gravity (U) [Rel density] 1.020 1.002-1.03 0 [facility] Work Phone: Urobilinogen Auto test strip Ql (U)on 11-22-2021 Urobilinogen Ql (U) Normal mg/dl Normal [facility] Work Phone: Whole blood hemoglobin A1c/t otal hemoglobin ratio (mass fraction)on 11-22-2021 HbA1c (Bld) [Mass fraction] 10.2 % 3.8-5.6 [facility] Work Phone: Comment on above: Normal < 5.7 % Predi abetic 5.7 - 6.4 % Diabetic >or= 6.5 % Please note range changes. Whole blood hemoglobin A1c/t otal hemoglobin ratio (mass fraction)on 10-27-2021 HbA1c (Bld) [Mass fraction] 8.3 % 3.8-5.6 [facility] Work Phone: Comment on above: Normal < 5.7 % Predi abetic 5.7 - 6.4 % Diabetic >or= 6.5 % Please note range changes. Absolute lymphocyte counton 10-13-2021 Lymphocytes Auto (Unsp spec) [#/Vol] 1.22 10*3/uL 0.83-4.51 [facility] Work Phone: Basophil percentageon 2021 Basophils/100 WBC (Bld) 0.3 % 0-1 [facility] Work Phone: Bilirubin [Mass/Vol] 0.50 mg/dL 0.20-1.00 [facility] Work Phone: Comment on above: For patients on eltr ombopag therapy, use of Dimension [place] TBIL is not recommended. Chloride [Moles/Vol] 102 mmol/L 98-107 [facility] Work Phone: Eosinophils/100 WBC (Bld) 1.7 % 0-5 [facility] Work Phone: Glucose [Mass/Vol] 259 mg/dL 74-106 [facility] Work Phone: Comment on above: Glucose result great er than or equal to 200 mg/dLsuggests DIABETES MELLITUS per A.D.A. criteria. Neutrophils (Bld) [#/Vol] 5.1 10*3/uL 2.0-7.7 [facility] Work Phone: Neutrophils/100 WBC (Bld) 70.8 % 47-70 [facility] Work Phone: Potassium [Moles/Vol] 4.4 mmol/L 3.5-5.1 [facility] Work Phone: Protein [Mass/Vol] 7.4 g/dL 6.4-8.2 [facility] Work Phone: Sodium [Moles/Vol] 134 mmol/L 136-145 [facility] Work Phone: WBC (Bld) [#/Vol] 7.1 10*3/uL 4.4-11.0 [facility] Work Phone: Blood erythrocytes count (nu mber/volume)on 10-13-2021 RBC (Bld) [#/Vol] 4.21 10*6/uL 4.2-5.4 [facility] Work Phone: Blood hemoglobin measurement (mass/volume)on 10-13-2021 Hemoglobin (Bld) [Mass/Vol] 12.1 g/dL 12.0-15.0 [facility] Work Phone: Blood lymphocytes/100 leukoc yteson 10-13-2021 Lymphocytes/100 WBC (Bld) 17.1 % 19-41 [facility] Work Phone: Blood monocytes/100 leukocyt eson 10-13-2021 Monocytes/100 WBC (Bld) 9.8 % 0-10 [facility] Work Phone: Blood platelet mean volumeon 10-13-2021 Platelet mean volume (Bld) [Entitic vol] 10.7 fL 6.2-12.0 [facility] Work Phone: Determination of erythrocyte mean corpuscular volume (MCV)on 10-13-2021 MCV (RBC) [Entitic vol] 86.2 fL 81-99 [facility] Work Phone: Hematocrit Auto (Bld) [Volum e fraction]on 10-13-2021 Hematocrit (Bld) [Volume fraction] 36.3 % 37-47 [facility] Work Phone: Laboratory - Chemistry and C hemistry - challengeon 10-13-2021 ALP [Catalytic activity/Vol] 169 U/L 45-117 [facility] Work Phone: ALT [Catalytic activity/Vol] 31 U/L 13-56 [facility] Work Phone: CO2 [Moles/Vol] 25.0 mmol/L 21.0-32.0 [facility] Work Phone: Globulin (S) [Mass/Vol] 4.5 g/dL 2.2-4.2 [facility] Work Phone: Urea nitrogen/Creatinine [Mass ratio] 14.3 mg/mg 10-20 [facility] Work Phone: Laboratory - Hematology and Cell countson 10-13-2021 Erythrocyte distribution width (RBC) [Entitic vol] 45.6 fL 35.1-43.9 [facility] Work Phone: Erythrocyte distribution width (RBC) [Ratio] 14.4 % 11.6-14.6 [facility] Work Phone: Immature granulocytes/100 WBC (Bld) 0.300 % 0.0-0.9 [facility] Work Phone: Comment on above: IG% - Immature Granu locytes (promyelocytes, myelocytes and metamyelocytes) > 1% indicates that a LEFT SHIFT is Present. MCH (RBC) [Entitic mass] 28.7 pg 27.0-32.0 [facility] Work Phone: Nucleated RBC/100 WBC (Bld) [Ratio] 0 % 0-5 [facility] Work Phone: MCHC Auto (RBC) [Mass/Vol]on 10-13-2021 MCHC (RBC) [Mass/Vol] 33.3 g/dL 32-36 [facility] Work Phone: No Panel Informationon 10-13 Estimated GFR (MDRD) Amer 79 mL/min >60 [facility] Work Phone: Comment on above: GFR Calc Estimated GFR (MDRD) Non-Af Amer 66 mL/min >60 [facility] Work Phone: Comment on above: Non- GFR Calc Vitamin D 25-Hydroxy 67.4 ng/mL [facility] Work Phone: Comment on above: Vitamin D 25(OH) Sta tus Range Deficiency <20 ng/mL (50nmol/L) Insufficiency 20 - 30 ng/mL (50 - 75 nmol/L) Sufficiency 30 - 100 ng/mL (75 - 250 nmol/L) Toxicity >100 ng/mL (>250 nmol/L) Platelets bldon 10-13-2021 Platelets (Bld) [#/Vol] 158 10*3/uL 150-450 [facility] Work Phone: Serum or plasma albumin kim urement (mass/volume)on 10-13-2021 Albumin [Mass/Vol] 2.9 g/dL 3.2-5.0 [facility] Work Phone: Serum or plasma albumin/glob ulin mass ratioon 10-13-2021 Albumin/Globulin [Mass ratio] 0.6 {ratio} 0.9-2.4 [facility] Work Phone: Serum or plasma calcium kim urement (mass/volume)on 10-13-2021 Calcium [Mass/Vol] 8.8 mg/dL 8.5-10.1 [facility] Work Phone: Serum or plasma creatinine m easurement (mass/volume)on 10-13-2021 Creatinine [Mass/Vol] 0.91 mg/dL 0.55-1.02 [facility] Work Phone: Comment on above: The validity of the calculated GFR & GFRAA in patients over 70 years has not been determined. Clinical correlation is essential. Serum or plasma urea nitroge n measurement (mass/volume)on 10-13-2021 Urea nitrogen [Mass/Vol] 13 mg/dL 7-18 [facility] Work Phone: Thin prep Papanicolaou smear with manual screeningon 10-13-2021 Thin prep Papanicolaou smear with manual screening 28 U/L 15-37 [facility] Work Phone: Thin prep Papanicolaou smear with manual screening 7 5-15 [facility] Work Phone: CNOVSPon 10-02-2021 CNOVSP Visit (SP) Office (ROGELIO) ----- VIDA NINA ([id number]) 1950 F Date Time Provider Department 10/02/21 1:00 PM JENNIFER CUEVAS During your visit today, we recorded the following information about you: Temperature Pulse Respiration Blood pressure 97.4 degrees 103/minute 20/minute 152/85 Weight Height 136.5 kg 1.651 m Moriah Aldridge RN 10/02/2021 12:52 PM Signed Patient arrived amb [place] [address] in [facility] for post op visit. Patient admits to pain in abd and lower back resolved since surgery. Pt denies any new concerns, today. Pt here with Marguerite, friend. Enc and support provided. JESUS Lynch MD 12/01/2021 8:04 AM Signed Gynecologic Oncology [facility] Follow up visit Date of service: 10/02/2021 PROBLEM/CC: Vida Nina presents for a post-op visit. SURGICAL PATHOLOGY [[id number]] Collected: 09/07/21 1104 Order Status: Completed Specimen: Tissue from UTERUS, CERVIX, BILATERAL FALLOPIAN TUBES AND BILATERAL OVARIES Updated: 09/11/21 1319 Case Report -- Surgical Pathology Report ? Case: [id number] ? Authorizing Provider: ?Jennifer Cuevas MD ? [...] A11 and A16 were reviewed at the [facility] gynecologic pathology consensus conference via telepathology on 09/09/[address] Lupe Younger and Andra Franco agree with the diagnosis of acute salpingitis. ? Laboratory Developed Test (LDT) Disclaimer: Performance characteristics of immunohistochemical, immunofluorescent and chromogenic in-situ hybridization tests have been determined by the performing laboratory within [facility]?s [facility] Laboratory Medicine [place] ([facility], [facility] or [facility]) in a manner consistent with CLIA [...] ass/Vol]on 09-22-2021 Glucose [Mass/Vol] 145 mg/dL 74-106 [facility] Work Phone: Comment on above: MANAGEMENT OF PATIEN T CARE PER NURSING PROTOCOL Darren 09-21-2021 CNPN Telephone (ÁNGEL Sprague) ----- VIDA NINA ([id number]) 1950 F Date Time Provider Department 09/21/21 JENNIFER CUEVAS During your visit today, we recorded the following information about you: Jeffrey Ferris 09/21/2021 12:15 PM Signed Spoke to Nurse Bernadine from [facility] stated that the patient is [...] ERYTHEMATOSUS [M32.9] 07/15/2005 MYALGIA AND MYOSITIS NOS [LZQ8027] 07/15/2005 Elevated transaminase level [R74.01] 09/04/2014 Elevated blood sugar [R73.9] 09/04/2014 Mood disorder (HCC) [F39] 09/04/2014 Hard to intubate [T88.4XXA] 09/07/2021 Encounter for postoperative care [Z48.89] 09/07/2021 Endometrial cancer (HCC) [C54.1] 09/08/2021 Encounter Status:Closed by JEFFERY FERRIS on 09/21/21 Normal [facility] Absolute lymphocyte counton 09-20-2021 Lymphocytes Auto (Unsp spec) [#/Vol] 0.99 10*3/uL 0.83-4.51 [facility] Work Phone: Basophil percentageon 2021 Basophils/100 WBC (Bld) 0.6 % 0-1 [facility] Work Phone: Chloride [Moles/Vol] 109 mmol/L 98-107 [facility] Work Phone: Eosinophils/100 WBC (Bld) 2.6 % 0-5 [facility] Work Phone: Glucose [Mass/Vol] 211 mg/dL 74-106 [facility] Work Phone: Comment on above: Glucose result great er than or equal to 200 mg/dLsuggests DIABETES MELLITUS per A.D.A. criteria. Neutrophils (Bld) [#/Vol] 3.4 10*3/uL 2.0-7.7 [facility] Work Phone: Neutrophils/100 WBC (Bld) 67.6 % 47-70 [facility] Work Phone: Potassium [Moles/Vol] 4.4 mmol/L 3.5-5.1 [facility] Work Phone: Sodium [Moles/Vol] 138 mmol/L 136-145 [facility] Work Phone: WBC (Bld) [#/Vol] 5.0 10*3/uL 4.4-11.0 [facility] Work Phone: Blood erythrocytes count (nu mber/volume)on 09-20-2021 RBC (Bld) [#/Vol] 4.50 10*6/uL 4.2-5.4 [facility] Work Phone: Blood hemoglobin measurement (mass/volume)on 09-20-2021 Hemoglobin (Bld) [Mass/Vol] 12.8 g/dL 12.0-15.0 [facility] Work Phone: Blood lymphocytes/100 leukoc yteson 09-20-2021 Lymphocytes/100 WBC (Bld) 19.7 % 19-41 [facility] Work Phone: Blood monocytes/100 leukocyt eson 09-20-2021 Monocytes/100 WBC (Bld) 9.1 % 0-10 [facility] Work Phone: Blood platelet mean volumeon 09-20-2021 Platelet mean volume (Bld) [Entitic vol] 9.8 fL 6.2-12.0 [facility] Work Phone: Determination of erythrocyte mean corpuscular volume (MCV)on 09-20-2021 MCV (RBC) [Entitic vol] 87.6 fL 81-99 [facility] Work Phone: Hematocrit Auto (Bld) [Volum e fraction]on 09-20-2021 Hematocrit (Bld) [Volume fraction] 39.4 % 37-47 [facility] Work Phone: Laboratory - Chemistry and C hemistry - challengeon 09-20-2021 CO2 [Moles/Vol] 24.0 mmol/L 21.0-32.0 [facility] Work Phone: Natriuretic peptide B (Bld) [Mass/Vol] 43.0 pg/mL 0-100 [facility] Work Phone: Urea nitrogen/Creatinine [Mass ratio] 14.0 mg/mg 10-20 [facility] Work Phone: Laboratory - Hematology and Cell countson 09-20-2021 Erythrocyte distribution width (RBC) [Entitic vol] 47.4 fL 35.1-43.9 [facility] Work Phone: Erythrocyte distribution width (RBC) [Ratio] 14.7 % 11.6-14.6 [facility] Work Phone: Immature granulocytes/100 WBC (Bld) 0.400 % 0.0-0.9 [facility] Work Phone: Comment on above: IG% - Immature Granu locytes (promyelocytes, myelocytes and metamyelocytes) > 1% indicates that a LEFT SHIFT is Present. MCH (RBC) [Entitic mass] 28.4 pg 27.0-32.0 [facility] Work Phone: Nucleated RBC/100 WBC (Bld) [Ratio] 0 % 0-5 [facility] Work Phone: MCHC Auto (RBC) [Mass/Vol]on 09-20-2021 MCHC (RBC) [Mass/Vol] 32.5 g/dL 32-36 [facility] Work Phone: No Panel Informationon 09-20 Troponin I High Sensitivity < 3 pg/mL 3.0-54.0 [facility] Work Phone: Comment on above: Please Note: New Emma t Units and Gender Specific Reference Ranges. For more information see Policy Stat Procedure [place] High Sensitivity Troponin (TNIH) and attachments. D-Dimer Quantitative (PE/DVT) 2.47 FEU/ug/m 0.27-0.49 [facility] Work Phone: Comment on above: D-Dimer ELEVATED (>0 .49): Additional studies and clinicalassessments are indicated to conclude diagnosis of:Deep Vein Thrombosis (DVT) or Pulmonary Embolism (PE)CRITICAL VALUE VERIFIED. CALLED TO NAZEPPNN22/17/22 0853 Taniya Burden.RESULTS READ BACK BY SAME . Estimated Creatinine Clearance Calc 56.34 ml/min [facility] Work Phone: Estimated GFR (MDRD) Amer 85 mL/min >60 [facility] Work Phone: Comment on above: GFR Calc Estimated GFR (MDRD) Non-Af Amer 70 mL/min >60 [facility] Work Phone: Comment on above: Non- GFR Calc Platelets bldon 09-20-2021 Platelets (Bld) [#/Vol] 161 10*3/uL 150-450 [facility] Work Phone: Serum or plasma calcium kim urement (mass/volume)on 09-20-2021 Calcium [Mass/Vol] 9.4 mg/dL 8.5-10.1 [facility] Work Phone: Serum or plasma creatinine m easurement (mass/volume)on 09-20-2021 Creatinine [Mass/Vol] 0.86 mg/dL 0.55-1.02 [facility] Work Phone: Comment on above: The validity of the calculated GFR & GFRAA in patients over 70 years has not been determined. Clinical correlation is essential. Serum or plasma urea nitroge n measurement (mass/volume)on 09-20-2021 Urea nitrogen [Mass/Vol] 12 mg/dL 7-18 [facility] Work Phone: Thin prep Papanicolaou smear with manual screeningon 09-20-2021 Thin prep Papanicolaou smear with manual screening 5-15 [facility] Work Phone: OPERATIVE NOon 09-17-2021 OPERATIVE NO HNO ID: [id number] Author: Jennifer Cuevas MD Service: Gynecology Oncology Author Type: Physician Type: Operative Report Filed: 09/23/2021 10:50 AM Note Text: [facility] - Operative Report VIDA NINA : 1950 AGE: 70. SEX: F PATIENT TYPE: I HOSP [facility]: OBN LOCATION: [facility] ATTENDING PHYSICIAN: Jennifer Cuevas M.D. CSN NUMBER: [id number] DATE OF SURGERY/PROCEDURE: 09/07/2021 INCISION/PROCEDURE START TIME: 09:14 a.m. INCISION CLOSE/PROCEDURE END TIME: 12:36 p.m. 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 SURGEON: Jennifer Cuevas M.D. AUTOMATIC DEVELOPER: asset protection assistant, Dr. Donal Naidu and Dr. Shanon [...] n 09-10-2021 Bilirubin Ql (U) Negative Negative [facility] Work Phone: Darren 09-10-2021 SHORTY Telephone (JOSE MANUELYNONPO B) ----- VIDA NINA ([id number]) 1950 F Date Time Provider Department 09/10/21 TANIYA BALDERAS During your visit today, we recorded the following information about you: Taniya Balderas APRN.MICHELLE 09/10/2021 8:32 AM Signed Called [facility] left message on nurse line to call [...] to. meds that are susceptible are iv. intermediate can recheck urine if still + then would need to get ID involved verbal instructions per Dr julieth Balderas APRN.[facility] Allergies As of Date: 09/10/2021 Noted Allergy [...] ERYTHEMATOSUS [M32.9] 07/15/2005 MYALGIA AND MYOSITIS NOS [[id number]] 07/15/2005 Elevated transaminase level [R74.01] 09/04/2014 Elevated blood sugar [R73.9] 09/04/2014 Mood disorder (HCC) [F39] 09/04/2014 Hard to intubate [T88.4XXA] 09/07/2021 Encounter for postoperative care [Z48.89] 09/07/2021 Endometrial cancer (HCC) [C54.1] 09/08/2021 Encounter Status:Closed by TANIYA BALDERAS on 09/10/21 Normal [facility] Culture, urineon 09-10-2021 Bacteria identified Cx Nom (U) Negative [facility] Work Phone: Ketones Test strip Ql (U)on 09-10-2021 Ketones Ql (U) Negative Negative [facility] Work Phone: Nitrite Test strip Ql (U)on 09-10-2021 Nitrite Ql (U) Negative Negative [facility] Work Phone: Protein Test strip Ql (U)on 09-10-2021 Protein Ql (U) Negative Negative [facility] Work Phone: Urine blood detectionon 04-0 RBC Ql (U) 25 /ul Negative [facility] Work Phone: Urine clarityon 09-10-2021 Clarity (U) Clear Clear [facility] Work Phone: Urine color determinationon 09-10-2021 Color (U) Yellow Yellow [facility] Work Phone: Urine glucose detectionon Glucose Ql (U) Normal mg/dl Normal [facility] Work Phone: Urine leukocyte esterase det ection by dipstickon 09-10-2021 Leukocyte esterase Test strip Ql (U) 25 /ul Negative [facility] Work Phone: Urine pHon 09-10-2021 pH (U) 7.0 [pH] 5.0 - 8.0 [facility] Work Phone: Urine specific gravity measu rementon 09-10-2021 Specific gravity (U) [Rel density] 1.005 1.002-1.03 0 [facility] Work Phone: Urobilinogen Auto test strip Ql (U)on 09-10-2021 Urobilinogen Ql (U) Normal mg/dl Normal [facility] Work Phone: ANES POSTPROC EVALon 022 ANES POSTPROC EVAL HNO ID: [id number] Author: Darrion Payne MD Service: Anesthesiology Author Type: Physician Type: Anesthesia Postprocedure Evaluation Filed: 09/09/2021 12:30 PM Note Text: POST ANESTHESIA EVALUATION NOTE : 1950 Procedure Summary Date: 09/07/21 Room / Location: [facility] [place] [address] [place] [address] OR Anesthesia Start: 812 Anesthesia Stop: 1242 [...] September 09, 2021 TIME: 12:30 PM CSN: [id number] [facility] CNPElva 09-09-2021 MICHELLEN Telephone (ÁNGEL Sprague) ----- VIDA NINA ([id number]) 1950 F Date Time Provider Department 09/09/21 JENNIFER CUEVAS During your visit today, we recorded the following information about you: Summer Turcios RN 09/09/2021 2:15 PM Signed Franklin, nursing care partner at [facility] called stated, "one of patient's lap [...] confidential e-mail) Attempted to call Franklin at [facility] to review above message, no answer. Left message on voicemail to return call. JESUS Shah RN 09/09/2021 2:53 PM Signed Franklin from [facility] returned call to this RN. [...] ERYTHEMATOSUS [M32.9] 07/15/2005 MYALGIA AND MYOSITIS NOS [[id number]] 07/15/2005 Elevated transaminase level [R74.01] 09/04/2014 Elevated blood sugar [R73.9] 09/04/2014 Mood disorder (HCC) [F39] 09/04/2014 Hard to intubate [T88.4XXA] 09/07/2021 Encounter for postoperative care [Z48.89] 09/07/2021 Endometrial cancer (HCC) [C54.1] 09/08/2021 Encounter Status:Closed by SUMMER TURCIOS on 09/09/21 [facility] CASE MANAGEMon 09-08-2021 CASE MANAGEM HNO ID: [id number] Author: Rosmery Mclaughlin RN Service: ? Author [...] Other Caregiver Other Caregiver Name/Phone: Jose Rafael Termo is aware of DC and miner pick time. RN to call report. TRANSPORTATION ARRANGEMENTS: Transportation Arrangements: ([facility]) ADDITIONAL CONTACT RESOURCES: n/a DC orders completed. Patient is discharging back to [facility] [place]. The facility has arranged for [facility] transport to pick her up at 1pm. RN is aware. Met with patient at bedside to notify of DC and transport time. SIGNATURE: Rosmery Mclaughlin RN PATIENT NAME: Vida Nina DATE: September 08, 2021 TIME: 12:28 PM PAGER/CONTACT #: [phone] [facility] HNO ID: [id number] Author: Rosmery Mclaughlin RN Service: ? Author Type: Registered Nurse Type: Care Mgt Initial Assessment Filed: 09/08/2021 10:24 AM Note Text: CARE MANAGEMENT: ASSESSMENT AND DISCHARGE PLAN SERVICE DATE: September 08, 2021 SERVICE TIME: 10:22 AM PRIMARY CARE PHYSICIAN: No primary care provider on file. 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 No Is Patient Psychosocially Complex?: No ASSESSMENT AND PLAN: Medical Needs: Medical Needs: Two or more chronic diseases Psychosocial Needs: Psychosocial Needs: None FREEDOM OF CHOICE EXPLAINED: [place] of Choice Given: No Reason Not Given: Patient refused (patient prefers to return to [facility]) POTENTIAL TRANSITION PLANS Home Chart reviewed and met with patient. She is from [facility]. 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 Plan is to return to [place]. Spoke with Zari at [facility]. They will send [facility] transport to miner pick patient at 1pm. Will updated patient and RN. SIGNATURE: Rosmery Mclaughlin RN PATIENT NAME: Vida Nina DATE: September 08, 2021 TIME: 10:22 AM PAGER/CONTACT #: [phone] [facility] 09-08-2021 [facility] HNO ID: [id number] Author: Sam Naidu DO Service: Gynecology Oncology [...] Time Provider Department Center 09/22/2021 2:30 PM [id number] CUEVAS PO DISCHARGE MEDICATIONS Current Discharge Medication [...] September 08, 2021 TIME: 7:27 AM PAGER: [phone] Normal [facility] ANES PRE-OPon 09-07-2021 ANES PRE-OP HNO ID: [id number] Author: Darrion Payne MD Service: Anesthesiology Author [...] and consent discussed: yes. Patient / Responsible Republican agrees to proceed: yes Patient / Surrogate [...] September 07, 2021 TIME: 8:57 AM CSN: [id number] [facility] BRIEF OP NOTon 09-07-2021 BRIEF OP NOT HNO ID: [id number] Author: Sam Naidu DO Service: Gynecology Oncology Author Type: Resident Type: Brief Op Note Filed: 09/07/2021 1:06 PM Note Text: BRIEF OPERATIVE / PROCEDURE NOTE LOG ID: [id number] SURGERY/PROCEDURE DATE: 09/07/2021 INCISION/PROCEDURE START TIME: 9:14 AM INCISION CLOSE/PROCEDURE END TIME: 12:36 PM SURGEON(S)/PROCEDURALIST( S) AND AUTOMATIC DEVELOPER(S): Surgeon(s) and Role: * Jennifer Cuevas MD [...] 2021 TIME: 1:01 PM Normal [facility] Bacteria Ur Culton 2 Bacteria identified [...] on above: Performed By: #### 6 30-4 ####[facility] [id number] [address] [place] [facility] Basic metabolic 2000 panelon 09-07-2021 Anion gap [Moles/Vol] 13 mmol/L Normal 9-18 [facility] Comment on above: Order Comment: Bobbi alford Type: BLOOD SPECIMEN Ordering Facility: [facility] Address: [address] [place] [address] Performed By: #### 2 4321-2 #### [facility] CLIA [id number] [address] [place] [facility] Calcium [Mass/Vol] 9.2 mg/dL Normal 8.5-10.2 [facility] Comment on above: Order Comment: Bobbi alford Type: BLOOD SPECIMEN Ordering Facility: [facility] Address: [address] [place] [place] [address] Performed By: #### 2 4321-2 #### [facility] CLIA [id number] [address] [place] Chloride [Moles/Vol] 97 mmol/L Normal 97-105 [facility] Comment on above: Order Comment: Speci men Type: BLOOD SPECIMEN Ordering Facility: [facility] Address: [address] [place] [address] Performed By: #### 2 4321-2 #### [facility] CLIA [id number] [address] [place] CO2 [Moles/Vol] 22 mmol/L Normal 22-30 [facility] Comment on above: Order Comment: Speci men Type: BLOOD SPECIMEN Ordering Facility: [facility] Address: [address] [place] [address] Performed By: #### 2 4321-2 #### [facility] CLIA [id number] [address] OF [facility] Creatinine [Mass/Vol] 0.70 mg/dL Normal 0.58-0.96 [facility] Comment on above: Order Comment: Speci men Type: BLOOD SPECIMEN Ordering Facility: [facility] Address: [address] [place] [address] Performed By: #### 2 4321-2 #### [facility] CLIA [id number] [address] [place] ESTIMATED GLOMERULAR FILTRATION RATE 94 mL/min/1.73m??? Normal >=60 [facility] Comment on above: Order Comment: Speci men Type: BLOOD SPECIMEN Ordering Facility: [facility] Address: [address] [place] [address] Result Comment: Laura mated Glomerular Filtration Rate [...] 2 4321-2 #### [facility] CLIA [id number] 1 [place] [address] [place] Glucose [Mass/Vol] 303 mg/dL High 74-99 [facility] Comment on above: Order Comment: Bobbi alford Type: BLOOD SPECIMEN Ordering Facility: [facility] Address: [address] [place] [address] Result Comment: The Citizen Of [place] Diabetes Association (ADA) provides guidance for cutoff [...] Standards of Medical Care in Diabetes 2016, Citizen Of [place] Diabetes Association. Diabetes Care. 2016.39(Suppl 1). Performed By: #### 2 4321-2 #### [facility] CLIA [id number] 1 [place] [address] [place] Potassium [Moles/Vol] 4.9 mmol/L Normal 3.7-5.1 [facility] Comment on above: Order Comment: Bobbi alford Type: BLOOD SPECIMEN Ordering Facility: [facility] Address: [address] [place] [address] Performed By: #### 2 4321-2 #### [facility] CLIA [id number] 1 [place] [address] [place] Sodium [Moles/Vol] 132 mmol/L Low 136-144 [facility] Comment on above: Order Comment: Bobbi alford Type: BLOOD SPECIMEN Ordering Facility: [facility] Address: [address] [place] [address] Performed By: #### 2 4321-2 #### [facility] CLIA [id number] [address] STATES OF [facility] Urea nitrogen [Mass/Vol] 13 mg/dL Normal 7-21 [facility] Comment on above: Order Comment: Speci men Type: BLOOD SPECIMEN Ordering Facility: [facility] Address: [address] [place] [address] Performed By: #### 2 4321-2 #### [facility] CLIA [id number] [address] [place] CBC panel Auto (Bld)on 09-07 Erythrocyte distribution width (RBC) [Ratio] 14.2 % Normal 11.5-15.0 [facility] Comment on above: Order Comment: Speci men Type: BLOOD SPECIMEN Ordering Facility: [facility] Address: [address] [place] [address] Performed By: #### 5 8410-2 #### [facility] CLIA [id number] [address] Hematocrit (Bld) [Volume fraction] 44.0 % Normal 36.0-46.0 [facility] Comment on above: Order Comment: Speci men Type: BLOOD SPECIMEN Ordering Facility: [facility] Address: [address] [place] [address] Performed By: #### 5 8410-2 #### [facility] CLIA [id number] [address] STATES [place] Hemoglobin (Bld) [Mass/Vol] 14.2 g/dL Normal 11.5-15.5 [facility] Comment on above: Order Comment: Speci men Type: BLOOD SPECIMEN Ordering Facility: [facility] Address: [address] [place] [address] Performed By: #### 5 8410-2 #### [facility] CLIA [id number] [address] MCH (RBC) [Entitic mass] 28.9 pg Normal 26.0-34.0 [facility] Comment on above: Order Comment: Speci men Type: BLOOD SPECIMEN Ordering Facility: [facility] Address: [address] [address] Performed By: #### 5 8410-2 #### [facility] CLIA [id number] [address] MCHC (RBC) [Mass/Vol] 32.3 g/dL Normal 30.5-36.0 [facility] Comment on above: Order Comment: Speci men Type: BLOOD SPECIMEN Ordering Facility: [facility] Address: [address] [place] [address] Performed By: #### 5 8410-2 #### [facility] CLIA [id number] [address] MCV (RBC) [Entitic vol] 89.6 fL Normal 80.0-100.0 [facility] Comment on above: Order Comment: Speci men Type: BLOOD SPECIMEN Ordering Facility: [facility] Address: [address] [place] [address] Performed By: #### 5 8410-2 #### [facility] CLIA [id number] [address] Nucleated RBC (Bld) [#/Vol] 10*3/uL Normal <0.01 [facility] Comment on above: Order Comment: Speci men Type: BLOOD SPECIMEN Ordering Facility: [facility] Address: [address] [place] [address] Performed By: #### 5 8410-2 #### [facility] CLIA [id number] [address] Platelet mean volume (Bld) [Entitic vol] 10.8 fL Normal 9.0-12.7 [facility] Comment on above: Order Comment: Speci men Type: BLOOD SPECIMEN Ordering Facility: [facility] Address: [address] [place] [address] Performed By: #### 5 8410-2 #### [facility] CLIA [id number] [address] [place] [address] [place] Platelets (Bld) [#/Vol] 153 10*3/uL Normal 150-400 [facility] Comment on above: Order Comment: Bobbi alford Type: BLOOD SPECIMEN Ordering Facility: [facility] Address: [address] [place] [address] Performed By: #### 5 8410-2 #### [facility] CLIA [id number] [address] STATES [place] RBC (Bld) [#/Vol] 4.91 10*6/uL Normal 3.90-5.20 [facility] Comment on above: Order Comment: Bobbi alford Type: BLOOD SPECIMEN Ordering Facility: [facility] Address: [address] [place] [address] Performed By: #### 5 8410-2 #### [facility] CLIA [id number] [address] WBC (Bld) [#/Vol] 8.23 10*3/uL Normal 3.70-11.00 [facility] Comment on above: Order Comment: Bobbi alford Type: BLOOD SPECIMEN Ordering Facility: [facility] Address: [address] [place] [address] Performed By: #### 5 8410-2 #### [facility] CLIA [id number] [address] OF [facility] CONSULT PROGon 09-07-2021 CONSULT PROG HNO ID: [id number] Author: Niki Crabtree RPh Service: Pharmacy Author [...] Niki Crabtree RPh DATE/TIME: 09/07/2021 4:32 PM [facility] NURSING PROGon 09-07-2021 NURSING PROG HNO ID: [id number] Author: Lydia Oliver RN Service: Nursing Author Type: Registered Nurse Type: Nursing Progress Note Filed: 09/07/2021 3:19 PM Note Text: Spoke with Bernadine at [facility] to let her know patient was spending the night, as she said there is no nursing staff after 2300 Normal [facility] NURSING PROG HNO ID: [id number] Author: Lydia Oliver RN Service: Nursing Author [...] FDA under an Emergency Use Authorization (EUA). [facility] Comment on above: Performed By: #### 9 4500-6 ####[facility] [id number] [address] STATES OF [facility] SURGICAL PATHOLOGYon 022 CASE REPORT Normal [facility] Comment on above: Order Comment: Speci men Type: TISSUE SPECIMEN Ordering Facility: [facility] Address: [address] [place] [id number] Result Comment: Surg ica Pathology Report Case: [id number] Authorizing Provider: Jennifer Cueavs MD Collected: 09/07/2021 11:04 AM Ordering Location: [facility] Received: 09/07/2021 11:12 AM Pathologist: Oseas May MD Intraop: Derick Alvarez MD Specimen: UTERUS, CERVIX, BILATERAL FALLOPIAN TUBES AND BILATERAL OVARIES Performed By: #### S #### [facility] CLIA [id number] [address] DIAGNOSIS COMMENT Normal [facility] Comment on above: Order Comment: Speci men Type: TISSUE SPECIMEN Ordering Facility: [facility] Address: [address] [place] [address] Result Comment: Immu nohistochemical staining performed on [...] A11 and A16 were reviewed at the [facility] gynecologic pathology consensus conference via telepathology on 09/09/20[address] Lupe Younger and Andra Franco agree with the diagnosis of acute salpingitis. Laboratory Developed Test (LDT) Disclaimer: Performance characteristics of immunohistochemical, immunofluorescent and chromogenic in-situ hybridization tests have been determined by the performing laboratory within [facility]???s Saul Andersen [facility] Pathology and Laboratory Medicine [place] ([facility], [facility] or [facility]) in a manner consistent with CLIA requirements. One or more of these tests have not been cleared or approved by the FDA. [facility] is regulated under CLIA as qualified to perform high-complexity testing. These tests are used for clinical purposes. They should not be regarded as investigational or for research. Positive and negative controls stain appropriately. Performed By: #### S #### [facility] CLIA [id number] [address] FINAL DIAGNOSIS Normal [facility] Comment on above: Order Comment: Speci men Type: TISSUE SPECIMEN Ordering Facility: [facility] Address: [address] [place] [address] Result Comment: A. U terus, cervix, bilateral [...] -Unremarkable ovaries. Performed By: #### S #### [facility] CLIA [id number] [address] [place] [address] FINAL PERFORMING LAB Normal [facility] Comment on above: Order Comment: Speci men Type: TISSUE SPECIMEN Ordering Facility: [facility] Address: [address] [place] [address] Result Comment: Diag nostic interpretation performed at [facility], [address] [place] [address] CLIA# [id number] Trade Sales Assistant: Alok Jonas M.D. Performed By: #### S #### [facility] CLIA [id number] [address] [place] [address] GROSS DESCRIPTION Normal [facility] Comment on above: Order Comment: Speci men Type: TISSUE SPECIMEN Ordering Facility: [facility] Address: [address] [address] Result Comment: A. U TERUS, CERVIX, BILATERAL [...] fibrous ovarian parenchyma with no lesions identified. Studio Producer sections are submitted as follows: A1-anterior cervix [...] A 17-right ovary Gross examination performed at [facility], [address] [place] [address] CLIA#[id number] OLS September 08, 2021 10:33 AM Performed By: #### S #### [facility] CLIA [id number] [address] [place] INTRAOPERATIVE DIAGNOSIS Normal [facility] Comment on above: Order Comment: Speci men Type: TISSUE SPECIMEN Ordering Facility: [facility] Address: [address] [place] [address] Result Comment: A. U TERUS, CERVIX, BILATERAL FALLOPIAN TUBES AND BILATERAL OVARIES. Gross diagnosis: Uterus, cervix, bilateral fallopian tubes, bilateral ovaries- Endometrial tumor grossly invading greater than 50% into the uterine wall (AC) Performed By: #### S #### [facility] CLIA [id number] [address] [place] SYNOPTIC REPORT ENDOMETRIUM Normal [facility] Comment on above: Order Comment: Speci men Type: TISSUE SPECIMEN Ordering Facility: [facility] Address: [address] [place] [address] Result Comment: ENDO METRIUM, HYSTERECTOMY - All [...] Stage: IB Performed By: #### S #### [facility] CLIA [id number] [address] OF [facility] CBC panel Auto (Bld)on 09-01 Erythrocyte distribution width (RBC) [Ratio] 14.5 % Normal 11.5-15.0 [facility] Comment on above: Order Comment: Bobbi alford Type: BLOOD SPECIMEN Ordering Facility: [facility] Address: [address] [address] Performed By: #### 5 8410-2 #### [facility] CLIA [id number] [address] STATES [facility] Hematocrit (Bld) [Volume fraction] 41.0 % Normal 36.0-46.0 [facility] Comment on above: Order Comment: Laurai men Type: BLOOD SPECIMEN Ordering Facility: [facility] Address: [address] [address] Performed By: #### 5 8410-2 #### [facility] CLIA [id number] [address] [place] Hemoglobin (Bld) [Mass/Vol] 13.3 g/dL Normal 11.5-15.5 [facility] Comment on above: Order Comment: Laurai men Type: BLOOD SPECIMEN Ordering Facility: [facility] Address: [address] [address] Performed By: #### 5 8410-2 #### [facility] CLIA [id number] [address] MCH (RBC) [Entitic mass] 28.8 pg Normal 26.0-34.0 [facility] Comment on above: Order Comment: Speci men Type: BLOOD SPECIMEN Ordering Facility: [facility] Address: [address] [place] [address] Performed By: #### 5 8410-2 #### [facility] CLIA [id number] [address] MCHC (RBC) [Mass/Vol] 32.4 g/dL Normal 30.5-36.0 [facility] Comment on above: Order Comment: Speci men Type: BLOOD SPECIMEN Ordering Facility: [facility] Address: [address] [place] [address] Performed By: #### 5 8410-2 #### [facility] CLIA [id number] [address] MCV (RBC) [Entitic vol] 88.7 fL Normal 80.0-100.0 [facility] Comment on above: Order Comment: Speci men Type: BLOOD SPECIMEN Ordering Facility: [facility] Address: [address] [place] [address] Performed By: #### 5 8410-2 #### [facility] CLIA [id number] [address] Nucleated RBC (Bld) [#/Vol] 10*3/uL Normal <0.01 [facility] Comment on above: Order Comment: Speci men Type: BLOOD SPECIMEN Ordering Facility: [facility] Address: [address] [place] [address] Performed By: #### 5 8410-2 #### [facility] CLIA [id number] [address] OF [facility] Platelet mean volume (Bld) [Entitic vol] 10.5 fL Normal 9.0-12.7 [facility] Comment on above: Order Comment: Speci men Type: BLOOD SPECIMEN Ordering Facility: [facility] Address: [address] [address] Performed By: #### 5 8410-2 #### [facility] CLIA [id number] [address] Platelets (Bld) [#/Vol] 167 10*3/uL Normal 150-400 [facility] Comment on above: Order Comment: Speci men Type: BLOOD SPECIMEN Ordering Facility: [facility] Address: [address] [place] [address] Performed By: #### 5 8410-2 #### [facility] CLIA [id number] [address] RBC (Bld) [#/Vol] 4.62 10*6/uL Normal 3.90-5.20 [facility] Comment on above: Order Comment: Speci men Type: BLOOD SPECIMEN Ordering Facility: [facility] Address: [address] [place] [address] Performed By: #### 5 8410-2 #### [facility] CLIA [id number] [address] WBC (Bld) [#/Vol] 6.29 10*3/uL Normal 3.70-11.00 [facility] Comment on above: Order Comment: Speci men Type: BLOOD SPECIMEN Ordering Facility: [facility] Address: [address] [place] [address] Performed By: #### 5 8410-2 #### [facility] CLIA [id number] [address] CONFIRM BLOOD TYPEon 022 ABO O Normal [facility] Comment on above: Order Comment: Speci men Type: BLOOD SPECIMEN Ordering Facility: [facility] Address: [address] [place] [address] Performed By: #### C ONABO #### [facility] CLIA [id number] [address] Rh Nom (Bld) Positive Normal [facility] Comment on above: Order Comment: Speci men Type: BLOOD SPECIMEN Ordering Facility: [facility] Address: [address] [place] [address] Performed By: #### C ONABO #### [facility] CLIA [id number] [address] [id number] [facility] HISTORY PHYSICALon 2 HISTORY PHYSICAL HNO ID: [id number] Author: Naila Barrientos APRN.MICHELLE Service: ? Author [...] with Dr. Cuevas. [facility] will be at [facility] Scheduled as an TBA Have you been in contact with someone with known coronavirus/Covid 19? no Have you had surgery or pre testing at [facility] in the past 3 years? no REVIEW [...] Negative for: AICD/PPM, chest pain, CHF, recent NH and open heart surgery. GI: Positive for: abdominal pain Negative for: nausea and vomiting. : No history of dysuria, frequency or incontinence, stones or chronic kidney disease. No difficulty urinating, nocturia > 1 time per night or hematuria. 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 [...] Speci men Type: BLOOD SPECIMEN Ordering Facility: [facility] Address: [address] [place] [address] Performed By: #### T SCR30 #### [facility] CLIA [id number] [address] HISTORICAL AB SCR STATUS Negative [facility] Comment on above: Order Comment: Speci men Type: BLOOD SPECIMEN Ordering Facility: [facility] Address: [address] [place] [address] Performed By: #### T SCR30 #### [facility] CLIA [id number] [address] [place] [address] Rh Nom (Bld) Positive [facility] Comment on above: Order Comment: Speci men Type: BLOOD SPECIMEN Ordering Facility: [facility] Address: [address] [place] [address] Performed By: #### T SCR30 #### [facility] CLIA [id number] [address] [place] CNOVSPon 08-21-2021 CNOVSP Visit (SP) Office (ROGELIO) ----- VIDA NINA ([id number]) 1950 F Date Time Provider Department 08/21/21 1:30 PM JENNIFER CUEVAS During your visit today, we recorded the following information about you: Temperature Pulse Blood pressure Weight 97.8 degrees 113/minute 144/72 130 kg Height 1.651 m Jennifer Cuevas MD 08/26/2021 1:21 PM Signed Gynecologic Oncology [facility] Consult Date of service: 08/21/2021 PCP: [...] many years since she has seen a railroad design consultant, maybe > 10 years. 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 Behavioral Health Case Manager History ? 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 Age at Menarche: ? Age at First : ? Age at Menopause: ? Behavioral Health Case Manager History Comments: ? Sexual Activity: Not Asked; [...] MICHELLE Telephone (ÁNGEL Sprague) ----- VIDA NINA ([id number]) 1950 F Date Time Provider Department 08/07/21 JENNIFER CUEVAS During your visit today, we recorded the following information about you: Jeffrey Ferris 08/07/2021 1:26 PM Signed Called gilberto the nurse at [facility] where the patient is living [...] ERYTHEMATOSUS [M32.9] 07/15/2005 MYALGIA AND MYOSITIS NOS [[id number]] 07/15/2005 Elevated transaminase level [R74.01] 09/04/2014 Elevated blood sugar [R73.9] 09/04/2014 Mood disorder (HCC) [F39] 09/04/2014 Encounter Status:Closed by JEFFREY FERRIS on 08/07/21 Normal [facility] CNPNon 08-05-2021 CNPN Telephone (OBGYWM) ----- VIDA NINA ([id number]) 1950 F Date Time Provider Department 08/05/21 KRUNAL ERAZO During your visit today, we recorded the following information about you: Krunal Erazo MD 08/05/2021 8:30 AM Signed Called listed numbers under home phone, and the numbers are not working. Called number listed for patient's director of casework services regarding results, but it was stated that patient does not have a director of casework services currently. I was given the number [phone] to call, which is [facility] where patient resides. Called this number and left a VM asking them to call back regarding patient results. I had offered the patient a follow up visit this week to review results, but she did prefer a phone call. Pathology shows endometrioid adenocarcinoma. I will place a referral to administrative professional oncology. Recommend that she see Dr. Jennifer Cuevas in [place] as that would be the closest for her. Krunal Erazo MD 08/05/2021 10:06 AM Signed Discussed results with a nurse Gilberto over the phone and plan of care. She states patient saw an oncologist as well at [facility] and is scheduled for a CTAP. She will have the patient call our office back today for me to discuss results with her as well. Krunal Erazo MD 08/05/2021 10:19 AM Signed Discussed results with the patient and she understands the biopsy shows an endometrial cancer, and that I placed a referral to administrative professional oncology for a consultation. Please assist in scheduling this patient. Andra Jesus RN 08/05/2021 11:33 AM Signed Scheduled patient with Dr. Cuevas this Tuesday, 08/07 at 1:00 PM. Spoke with the nurse, Gilberto. Patient's CT scan is scheduled for Tuesday. Phone number given to change appointment since transportation needs arranged. Notified Gilberto that he is in [place] on Tuesdays and every other Tuesday. 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] Order(s):CONSULT TO GYNECOLOGIC/ONCOLOGY [[id number]] Order #: [id number]: 1 FUTURE Prescriptions as of 08/05/2021 - [...] ERYTHEMATOSUS [M32.9] 07/15/2005 MYALGIA AND MYOSITIS NOS [[id number]] 07/15/2005 Elevated transaminase level [R74.01] 09/04/2014 Elevated blood sugar [R73.9] 09/04/2014 Mood disorder (HCC) [F39] 09/04/2014 Encounter Status:Closed by PAMELA MATUTE RN on 08/05/21 [facility] No Panel Informationon 07-30 CA 125 Antigen 85.5 U/mL 0.0-38.1 [facility] Work Phone: Comment on above: [employer] El ectrochemiluminescence Immunoassay(ECLIA)Values obtained with different assay methods or kits cannotbe used interchangeably. Results cannot be interpreted asabsolute evidence of the presence or absence of malignantdisease.Performed at: [address] [id number] Director: Suhas Deal PhD, Phone: [phone] CNOVon 07-29-2021 CNOV Office Visit (OBGYWM ) ----- VIDA NINA ([id number]) 1950 F Date Time Provider Department 07/29/21 [...] many years since she has seen a railroad design consultant, maybe > 10 years. 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 Behavioral Health Case Manager History LMP: Postmenopausal Age at Menarche: Age at First : Age at Menopause: Behavioral Health Case Manager History Comments: Sexual Activity: Not Asked; No [...] non-tender and (more content not included)... Normal [facility] SURGICAL PATHOLOGYon 022 SURGICAL PATHOLOGY ADDENDUM PRESENT Specimen originated from [facility] Specimen #: [id number] Submitting Physician: KRUNAL ERAZO, DO FINAL DIAGNOSIS [...] in-situ hybridization tests have been determined by [facility]ology [facility] Laboratory Medicine [place] ([facility] in a manner consistent with CLIA requirements. One or more of these tests have not been cleared or approved by the FDA. [facility] is regulated under CLIA as qualified to [...] completed on all uterine/endometrial carcinomas at the [facility]. IHC stains for MMR proteins were [...] more information or questions, please call the [facility] at . Andra Webb (more content not included)... Normal [facility] CNPNon 07-27-2021 CNPN Telephone (OBGYWM) ----- VIDA NINA ([id number]) 1950 F CPA Date Time Provider Department 07/27/21 KRUNAL ERAZO OBTRUDY During your visit today, we recorded the following information about you: Andra Jesus RN 07/27/2021 8:14 AM Signed KJ states that patient was seen at [facility] yesterday for vaginal bleeding and possible pelvic mass. Called [facility] ER and requested records and imaging report [...] minimally ambulatory and coming from [facility]. Since she is a new patient who is minimally ambulatory, and likely needs an EMB and cervical biopsies, would prefer to have 60 min appointment to get everything completed in one day as well as child welfare counselor her. Can offer her the 2.20 [...] ERYTHEMATOSUS [M32.9] 07/15/2005 MYALGIA AND MYOSITIS NOS [[id number]] 07/15/2005 Elevated transaminase level [R74.01] 09/04/2014 Elevated blood sugar [R73.9] 09/04/2014 Mood disorder (HCC) [F39] 09/04/2014 Encounter Status:Closed by ELISABETH GREEN LPN on 07/27/21 Normal [facility] Absolute lymphocyte counton 07-26-2021 Lymphocytes Auto (Unsp spec) [#/Vol] 1.24 10*3/uL 0.83-4.51 [facility] Work Phone: Basophil percentageon 2021 Basophils/100 WBC (Bld) 0.6 % 0-1 [facility] Work Phone: Chloride [Moles/Vol] 105 mmol/L 98-107 [facility] Work Phone: Eosinophils/100 WBC (Bld) 3.9 % 0-5 [facility] Work Phone: Glucose [Mass/Vol] 185 mg/dL 74-106 [facility] Work Phone: Comment on above: Fasting Glucose resu lt greater than or equal to 126 mg/dL suggests DIABETES MELLITUS per A.D.A. criteria. Neutrophils (Bld) [#/Vol] 3.2 10*3/uL 2.0-7.7 [facility] Work Phone: Neutrophils/100 WBC (Bld) 62.1 % 47-70 [facility] Work Phone: Potassium [Moles/Vol] 4.4 mmol/L 3.5-5.1 [facility] Work Phone: Sodium [Moles/Vol] 135 mmol/L 136-145 [facility] Work Phone: WBC (Bld) [#/Vol] 5.1 10*3/uL 4.4-11.0 [facility] Work Phone: Blood erythrocytes count (nu mber/volume)on 07-26-2021 RBC (Bld) [#/Vol] 4.66 10*6/uL 4.2-5.4 [facility]: Blood hemoglobin measurement (mass/volume)on 07-26-2021 Hemoglobin (Bld) [Mass/Vol] 13.8 g/dL 12.0-15.0 [facility] Work Phone: Blood lymphocytes/100 leukoc yteson 07-26-2021 Lymphocytes/100 WBC (Bld) 24.5 % 19-41 [facility] Work Phone: Blood monocytes/100 leukocyt eson 07-26-2021 Monocytes/100 WBC (Bld) 8.5 % 0-10 [facility] Work Phone: Blood platelet mean volumeon 07-26-2021 Platelet mean volume (Bld) [Entitic vol] 10.1 fL 6.2-12.0 [facility] Work Phone: Determination of erythrocyte mean corpuscular volume (MCV)on 07-26-2021 MCV (RBC) [Entitic vol] 88.2 fL 81-99 [facility] Work Phone: Hematocrit Auto (Bld) [Volum e fraction]on 07-26-2021 Hematocrit (Bld) [Volume fraction] 41.1 % 37-47 [facility] Work Phone: Laboratory - Chemistry and C hemistry - challengeon 07-26-2021 CO2 [Moles/Vol] 24.0 mmol/L 21.0-32.0 [facility] Work Phone: Urea nitrogen/Creatinine [Mass ratio] 17.3 mg/mg 10-20 [facility] Work Phone: Laboratory - Hematology and Cell countson 07-26-2021 Erythrocyte distribution width (RBC) [Entitic vol] 46.8 fL 35.1-43.9 [facility] Work Phone: Erythrocyte distribution width (RBC) [Ratio] 14.6 % 11.6-14.6 [facility] Work Phone: Immature granulocytes/100 WBC (Bld) 0.400 % 0.0-0.9 [facility] Work Phone: Comment on above: IG% - Immature Granu locytes (promyelocytes, myelocytes and metamyelocytes) > 1% indicates that a LEFT SHIFT is Present. MCH (RBC) [Entitic mass] 29.6 pg 27.0-32.0 [facility] Work Phone: Nucleated RBC/100 WBC (Bld) [Ratio] 0 % 0-5 [facility] Work Phone: MCHC Auto (RBC) [Mass/Vol]on 07-26-2021 MCHC (RBC) [Mass/Vol] 33.6 g/dL 32-36 [facility] Work Phone: No Panel Informationon 07-26 Estimated Creatinine Clearance Calc 55.69 ml/min [facility] Work Phone: Estimated GFR (MDRD) Amer 84 mL/min >60 [facility] Work Phone: Comment on above: GFR Calc Estimated GFR (MDRD) Non-Af Amer 69 mL/min >60 [facility] Work Phone: Comment on above: Non- GFR Calc Platelets bldon 07-26-2021 Platelets (Bld) [#/Vol] 151 10*3/uL 150-450 [facility] Work Phone: Serum or plasma calcium kim urement (mass/volume)on 07-26-2021 Calcium [Mass/Vol] 9.2 mg/dL 8.5-10.1 [facility] Work Phone: Serum or plasma creatinine m easurement (mass/volume)on 07-26-2021 Creatinine [Mass/Vol] 0.87 mg/dL 0.55-1.02 [facility] Work Phone: Comment on above: The validity of the calculated GFR & GFRAA in patients over 70 years has not been determined. Clinical correlation is essential. Serum or plasma urea nitroge n measurement (mass/volume)on 07-26-2021 Urea nitrogen [Mass/Vol] 15 mg/dL 7-18 [facility] Work Phone: Thin prep Papanicolaou smear with manual screeningon 07-26-2021 Thin prep Papanicolaou smear with manual screening 6 5-15 [facility] Work Phone: Absolute lymphocyte counton 07-14-2021 Lymphocytes Auto (Unsp spec) [#/Vol] 1.32 10*3/uL 0.83-4.51 [facility] Work Phone: Basophil percentageon 2021 Basophils/100 WBC (Bld) 0.6 % 0-1 [facility] Work Phone: Bilirubin [Mass/Vol] 0.40 mg/dL 0.20-1.00 [facility] Work Phone: Comment on above: For patients on eltr ombopag therapy, use of Dimension [place] TBIL is not recommended. Chloride [Moles/Vol] 104 mmol/L 98-107 [facility] Work Phone: Eosinophils/100 WBC (Bld) 3.1 % 0-5 [facility] Work Phone: Glucose [Mass/Vol] 201 mg/dL 74-106 [facility] Work Phone: Comment on above: Glucose result great er than or equal to 200 mg/dLsuggests DIABETES MELLITUS per A.D.A. criteria. Neutrophils (Bld) [#/Vol] 3.0 10*3/uL 2.0-7.7 [facility] Work Phone: Neutrophils/100 WBC (Bld) 59.5 % 47-70 [facility] Work Phone: Potassium [Moles/Vol] 4.2 mmol/L 3.5-5.1 [facility] Work [facility]: Protein [Mass/Vol] 7.6 g/dL 6.4-8.2 [facility] Work Phone: Sodium [Moles/Vol] 136 mmol/L 136-145 [facility] Work Phone: WBC (Bld) [#/Vol] 5.1 10*3/uL 4.4-11.0 [facility] Work Phone: Blood erythrocytes count (nu mber/volume)on 07-14-2021 RBC (Bld) [#/Vol] 4.23 10*6/uL 4.2-5.4 [facility] Work Phone: Blood hemoglobin measurement (mass/volume)on 07-14-2021 Hemoglobin (Bld) [Mass/Vol] 12.9 g/dL 12.0-15.0 [facility] Work Phone: Blood lymphocytes/100 leukoc yteson 07-14-2021 Lymphocytes/100 WBC (Bld) 26.0 % 19-41 [facility] Work Phone: Blood monocytes/100 leukocyt eson 07-14-2021 Monocytes/100 WBC (Bld) 10.4 % 0-10 [facility] Work Phone: Blood platelet mean volumeon 07-14-2021 Platelet mean volume (Bld) [Entitic vol] 10.9 fL 6.2-12.0 [facility] Work Phone: Determination of erythrocyte mean corpuscular volume (MCV)on 07-14-2021 MCV (RBC) [Entitic vol] 88.9 fL 81-99 [facility] Work Phone: Hematocrit Auto (Bld) [Volum e fraction]on 07-14-2021 Hematocrit (Bld) [Volume fraction] 37.6 % 37-47 [facility] Work Phone: Laboratory - Chemistry and C hemistry - challengeon 07-14-2021 ALP [Catalytic activity/Vol] 144 U/L 45-117 [facility] Work Phone: ALT [Catalytic activity/Vol] 28 U/L 13-56 [facility] Work Phone: CO2 [Moles/Vol] 24.0 mmol/L 21.0-32.0 [facility] Work Phone: Globulin (S) [Mass/Vol] 4.7 g/dL 2.2-4.2 [facility] Work Phone: Urea nitrogen/Creatinine [Mass ratio] 18.0 mg/mg 10-20 [facility] Work Phone: Laboratory - Hematology and Cell countson 07-14-2021 Erythrocyte distribution width (RBC) [Entitic vol] 46.7 fL 35.1-43.9 [facility] Work Phone: Erythrocyte distribution width (RBC) [Ratio] 14.5 % 11.6-14.6 [facility] Work Phone: Immature granulocytes/100 WBC (Bld) 0.400 % 0.0-0.9 [facility] Work Phone: Comment on above: IG% - Immature Granu locytes (promyelocytes, myelocytes and metamyelocytes) > 1% indicates that a LEFT SHIFT is Present. MCH (RBC) [Entitic mass] 30.5 pg 27.0-32.0 [facility] Work Phone: Nucleated RBC/100 WBC (Bld) [Ratio] 0 % 0-5 [facility] Work Phone: MCHC Auto (RBC) [Mass/Vol]on 07-14-2021 MCHC (RBC) [Mass/Vol] 34.3 g/dL 32-36 [facility] Work Phone: No Panel Informationon 07-14 Estimated GFR (MDRD) Amer 95 mL/min >60 [facility] Work Phone: Comment on above: GFR Calc Estimated GFR (MDRD) Non-Af Amer 78 mL/min >60 [facility] Work Phone: Comment on above: Non- GFR Calc Vitamin D 25-Hydroxy 79.0 ng/mL [facility] Work Phone: Comment on above: Vitamin D 25(OH) Sta tus Range Deficiency <20 ng/mL (50nmol/L) Insufficiency 20 - 30 ng/mL (50 - 75 nmol/L) Sufficiency 30 - 100 ng/mL (75 - 250 nmol/L) Toxicity >100 ng/mL (>250 nmol/L) Platelets bldon 07-14-2021 Platelets (Bld) [#/Vol] 170 10*3/uL 150-450 [facility] Work Phone: Serum or plasma albumin kim urement (mass/volume)on 07-14-2021 Albumin [Mass/Vol] 2.9 g/dL 3.2-5.0 [facility] Work Phone: Serum or plasma albumin/glob ulin mass ratioon 07-14-2021 Albumin/Globulin [Mass ratio] 0.6 {ratio} 0.9-2.4 [facility] Work Phone: Serum or plasma calcium kim urement (mass/volume)on 07-14-2021 Calcium [Mass/Vol] 8.7 mg/dL 8.5-10.1 [facility] Work Phone: Serum or plasma creatinine m easurement (mass/volume)on 07-14-2021 Creatinine [Mass/Vol] 0.78 mg/dL 0.55-1.02 [facility] Work Phone: Comment on above: The validity of the calculated GFR & GFRAA in patients over 70 years has not been determined. Clinical correlation is essential. Serum or plasma urea nitroge n measurement (mass/volume)on 07-14-2021 Urea nitrogen [Mass/Vol] 14 mg/dL 7-18 [facility] Work Phone: Thin prep Papanicolaou smear with manual screeningon 07-14-2021 Thin prep Papanicolaou smear with manual screening 26 U/L 15-37 [facility] Work Phone: Thin prep Papanicolaou smear with manual screening 8 5-15 [facility] Work Phone: Absolute lymphocyte counton 07-08-2021 Lymphocytes Auto (Unsp spec) [#/Vol] 1.26 10*3/uL 0.83-4.51 [facility] Work Phone: Basophil percentageon 2021 Basophils/100 WBC (Bld) 0.6 % 0-1 [facility] Work Phone: Bilirubin [Mass/Vol] 0.40 mg/dL 0.20-1.00 [facility] Work Phone: Comment on above: For patients on eltr ombopag therapy, use of Dimension [place] TBIL is not recommended. Chloride [Moles/Vol] 104 mmol/L 98-107 [facility] Work Phone: Eosinophils/100 WBC (Bld) 4.5 % 0-5 [facility] Work Phone: Glucose [Mass/Vol] 181 mg/dL 74-106 [facility] Work Phone: Comment on above: Fasting Glucose resu lt greater than or equal to 126 mg/dL suggests DIABETES MELLITUS per A.D.A. criteria. Neutrophils (Bld) [#/Vol] 2.8 10*3/uL 2.0-7.7 [facility] Work Phone: Neutrophils/100 WBC (Bld) 58.0 % 47-70 [facility] Work Phone: Potassium [Moles/Vol] 4.5 mmol/L 3.5-5.1 [facility] Work Phone: Protein [Mass/Vol] 7.5 g/dL 6.4-8.2 [facility] Work Phone: Sodium [Moles/Vol] 136 mmol/L 136-145 [facility] Work Phone: WBC (Bld) [#/Vol] 4.9 10*3/uL 4.4-11.0 [facility] Work Phone: Blood erythrocytes count (nu mber/volume)on 07-08-2021 RBC (Bld) [#/Vol] 4.16 10*6/uL 4.2-5.4 [facility] Work Phone: Blood hemoglobin measurement (mass/volume)on 07-08-2021 Hemoglobin (Bld) [Mass/Vol] 12.2 g/dL 12.0-15.0 [facility] Work Phone: Blood lymphocytes/100 leukoc yteson 07-08-2021 Lymphocytes/100 WBC (Bld) 25.7 % 19-41 [facility] Work Phone: Blood monocytes/100 leukocyt eson 07-08-2021 Monocytes/100 WBC (Bld) 10.8 % 0-10 [facility] Work Phone: Blood platelet mean volumeon 07-08-2021 Platelet mean volume (Bld) [Entitic vol] 11.2 fL 6.2-12.0 [facility] Work Phone: Determination of erythrocyte mean corpuscular volume (MCV)on 07-08-2021 MCV (RBC) [Entitic vol] 89.2 fL 81-99 [facility] Work Phone: Hematocrit Auto (Bld) [Volum e fraction]on 07-08-2021 Hematocrit (Bld) [Volume fraction] 37.1 % 37-47 [facility] Work Phone: Laboratory - Chemistry and C hemistry - challengeon 07-08-2021 ALP [Catalytic activity/Vol] 131 U/L 45-117 [facility] Work Phone: ALT [Catalytic activity/Vol] 32 U/L 13-56 [facility] Work Phone: CO2 [Moles/Vol] 23.0 mmol/L 21.0-32.0 [facility] Work Phone: Globulin (S) [Mass/Vol] 4.6 g/dL 2.2-4.2 [facility] Work Phone: Urea nitrogen/Creatinine [Mass ratio] 18.5 mg/mg 10-20 [facility] Work Phone: Laboratory - Hematology and Cell countson 07-08-2021 Erythrocyte distribution width (RBC) [Entitic vol] 47.6 fL 35.1-43.9 [facility] Work Phone: Erythrocyte distribution width (RBC) [Ratio] 14.6 % 11.6-14.6 [facility] Work Phone: Immature granulocytes/100 WBC (Bld) 0.400 % 0.0-0.9 [facility] Work Phone: Comment on above: IG% - Immature Granu locytes (promyelocytes, myelocytes and metamyelocytes) > 1% indicates that a LEFT SHIFT is Present. MCH (RBC) [Entitic mass] 29.3 pg 27.0-32.0 [facility] Work Phone: Nucleated RBC/100 WBC (Bld) [Ratio] 0 % 0-5 [facility] Work Phone: MCHC Auto (RBC) [Mass/Vol]on 07-08-2021 MCHC (RBC) [Mass/Vol] 32.9 g/dL 32-36 [facility] Work Phone: No Panel Informationon 07-08 Estimated GFR (MDRD) Amer 84 mL/min >60 [facility] Work Phone: Comment on above: GFR Calc Estimated GFR (MDRD) Non-Af Amer 69 mL/min >60 [facility] Work Phone: Comment on above: Non- GFR Calc Vitamin D 25-Hydroxy 88.3 ng/mL [facility] Work Phone: Comment on above: Vitamin D 25(OH) Sta tus Range Deficiency <20 ng/mL (50nmol/L) Insufficiency 20 - 30 ng/mL (50 - 75 nmol/L) Sufficiency 30 - 100 ng/mL (75 - 250 nmol/L) Toxicity >100 ng/mL (>250 nmol/L) Platelets bldon 07-08-2021 Platelets (Bld) [#/Vol] 159 10*3/uL 150-450 [facility] Work Phone: Serum or plasma albumin kim urement (mass/volume)on 07-08-2021 Albumin [Mass/Vol] 2.9 g/dL 3.2-5.0 [facility] Work Phone: Serum or plasma albumin/glob ulin mass ratioon 07-08-2021 Albumin/Globulin [Mass ratio] 0.6 {ratio} 0.9-2.4 [facility] Work Phone: Serum or plasma calcium kim urement (mass/volume)on 07-08-2021 Calcium [Mass/Vol] 9.0 mg/dL 8.5-10.1 [facility] Work Phone: Serum or plasma creatinine m easurement (mass/volume)on 07-08-2021 Creatinine [Mass/Vol] 0.87 mg/dL 0.55-1.02 [facility] Work Phone: Comment on above: The validity of the calculated GFR & GFRAA in patients over 70 years has not been determined. Clinical correlation is essential. Serum or plasma urea nitroge n measurement (mass/volume)on 07-08-2021 Urea nitrogen [Mass/Vol] 16 mg/dL 7-18 [facility] Work Phone: Thin prep Papanicolaou smear with manual screeningon 07-08-2021 Thin prep Papanicolaou smear with manual screening 32 U/L 15-37 [facility] Work Phone: Thin prep Papanicolaou smear with manual screening 9 5-15 [facility] Work Phone: No Panel Informationon 06-12 Vitamin D 25-Hydroxy 101.7 ng/mL [facility] Work Phone: Comment on [...] Vitamin D test results. Office Visit: [facility] 10-26-2016 Adolescent depression screening assessment Adolescent depression screening assessment Invalid Interpretation Code [facility] Work Phone: Documentation of current medications (procedure) Done Invalid Interpretation Code [facility] Work Phone: Fall risk assessment Fall risk assessment Invali d Interpretation Code [facility] Work Phone: Tobacco smoking status NHIS Never Invalid Interpretation Code [facility] Work Phone: Tobacco use CPHS Former smoker Invalid Interpretation Code [facility] Work Phone: Office Visit: [facility] 11-05-2015 Breast Mammogram screening Normal Bilateral Invalid Interpretation Code [facility] Work Phone: Colonoscopy (procedure) Colonoscopy (procedure) Invalid Interpretation Code [facility] Work Phone: Culture, urine Bacteria identified Cx Nom (U) Negative [facility] Work Phone: Bacteria identified Cx Nom (U) Escherichia coli [facility] Work Phone: Laboratory - Microbiology an d Antimicrobial susceptibility Bacteria identified Cx Nom (Bld) Negative [facility] Work Phone: No Panel Information SARS-CoV-2 & FLU Antigen (Rapid) [facility] Work Phone: Vital Signs Date Time Vital Sign Value Performing Clinician Facility 10-11-2024 07:00-0400 SaO2% (BldA) [Mass fraction] 95 % Dr. Shayna Malhotra MD Work Phone: [facility] 10-11-2024 06:49-0400 Body temperature 97.6 [degF] Dr. Shayna Malhotra MD Work Phone: [facility] 10-11-2024 06:49-0400 Diastolic blood pressure 76 mm[Hg] Dr. Shayna Malhotra MD Work Phone: [facility] 10-11-2024 06:49-0400 Heart rate 106 /min Dr. Shayna Malhotra MD Work Phone: [facility] 10-11-2024 06:49-0400 Respiratory rate 20 /min Dr. Shayna Malhotra MD Work Phone: [facility] 10-11-2024 06:49-0400 Systolic blood pressure 153 mm[Hg] Dr. Shayna Malhotra MD Work Phone: [facility] 10-11-2024 06:00-0400 Body mass index (BMI) [Ratio] 49.6 kg/m2 Dr. Shayna Malhotra MD Work Phone: [facility] 10-11-2024 06:00-0400 Body weight 135.[address] Shayna Malhotra MD Work Phone: [facility] 10-10-2024 14:58-0400 Body height 165.[address] Shayna Malhotra MD Work Phone: [facility] 10-09-2024 20:55-0400 Diastolic blood pressure 57 mm[Hg] Dr. Shayna Malhotra MD Work Phone: [facility] 10-09-2024 20:55-0400 Heart rate 102 /min Dr. Shayna Malhotra MD Work Phone: [facility] 10-09-2024 20:55-0400 Respiratory rate 20 /min Dr. Shayna Malhotra MD Work Phone: [facility] 10-09-2024 20:55-0400 SaO2% (BldA) [Mass fraction] 98 % Dr. Shayna Malhotra MD Work Phone: [facility] 10-09-2024 20:55-0400 Systolic blood pressure 121 mm[Hg] Dr. Shayna Malhotra MD Work Phone: [facility] 10-09-2024 16:55-0400 Body height 165.[address] Shayna Malhotra MD Work Phone: [facility] 10-09-2024 16:55-0400 Body mass index (BMI) [Ratio] 49.1 kg/m2 Dr. Shayna Malhotra MD Work Phone: [facility] 10-09-2024 16:55-0400 Body temperature 97.8 [degF] Dr. Shayna Malhotra MD Work Phone: [facility] 10-09-2024 16:55-0400 Body weight [address] Shayna Malhotra MD Work Phone: [facility] 07-04-2024 13:06-0500 Body mass index (BMI) [Ratio] 49.9 kg/m2 Dr. Shayna Malhotra MD Work Phone: [facility] 07-04-2024 13:06-0500 Body temperature 97.8 [degF] Dr. Shayna Malhotra MD Work Phone: [facility] 07-04-2024 13:06-0500 Body weight 136.[address] Shayna Malhotra MD Work Phone: [facility] 07-04-2024 13:06-0500 Diastolic blood pressure 80 mm[Hg] Dr. Shayna Malhotra MD Work Phone: [facility] 07-04-2024 13:06-0500 Heart rate 107 /min Dr. Shayna Malhotra MD Work Phone: [facility] 07-04-2024 13:06-0500 Respiratory rate 16 /min Dr. Shayna Malhotra MD Work Phone: [facility] 07-04-2024 13:06-0500 SaO2% (BldA) [Mass fraction] 94 % Dr. Shayna Malhotra MD Work Phone: [facility] 07-04-2024 13:06-0500 Systolic blood pressure 142 mm[Hg] Dr. Shayna Malhotra MD Work Phone: [facility] 01-09-2023 19:06-0400 Body temperature 99.5 [degF] Dr. Shayna Malhotra Work Phone: [facility] 01-09-2023 19:06-0400 Heart rate 115 /min Dr. Shayna Malhotra Work Phone: [facility] 01-09-2023 19:06-0400 Respiratory rate 16 /min Dr. Shayna Malhotra Work Phone: [facility] 01-09-2023 19:06-0400 SaO2% (BldA) [Mass fraction] 95 % Dr. Shayna Malhotra Work Phone: [facility] 01-09-2023 17:53-0400 Diastolic blood pressure 89 mm[Hg] Dr. Shayna Malhotra Work Phone: [facility] 01-09-2023 17:53-0400 Systolic blood pressure 166 mm[Hg] Dr. Shayna Malhotra Work Phone: [facility] 01-09-2023 17:15-0400 Body height 165.[address] Shayna Malhotra Work Phone: [facility] 01-09-2023 17:15-0400 Body mass index (BMI) [Ratio] 51 kg/m2 Dr. Shayna Malhotra Work Phone: [facility] 01-09-2023 17:15-0400 Body weight 139.[address] Shayna Malhotra Work Phone: [facility] 11-24-2022 13:42-0400 Body mass index (BMI) [Ratio] 51.4 kg/m2 Dr. Shayna Malhotra Work Phone: [facility] 11-24-2022 13:42-0400 Body temperature 97.9 [degF] Dr. Sahyna Malhotra Work Phone: [facility] 11-24-2022 13:42-0400 Body weight 140.[address] Shayna Malhotra Work Phone: [facility] 11-24-2022 13:42-0400 Diastolic blood pressure 67 mm[Hg] Dr. Shayna Malhotra Work Phone: [facility] 11-24-2022 13:42-0400 Heart rate 112 /min Dr. Shayna Malhotra Work Phone: [facility] 11-24-2022 13:42-0400 Respiratory rate 20 /min Dr. Shayna Malhotra Work Phone: [facility] 11-24-2022 13:42-0400 SaO2% (BldA) [Mass fraction] 92 % Dr. Shayna Malhotra Work Phone: [facility] 11-24-2022 13:42-0400 Systolic blood pressure 125 mm[Hg] Dr. Shayna Malhotra Work Phone: [facility] 05-06-2022 16:07-0500 Body height 165.[address] Shayna Malhotra Work Phone: [facility] 05-06-2022 16:07-0500 Body mass index (BMI) [Ratio] 49.4 kg/m2 Dr. Shayna Malhotra Work Phone: [facility] 05-06-2022 16:07-0500 Body temperature 98.6 [degF] Dr. Shayna Malhotra Work Phone: [facility] 05-06-2022 16:07-0500 Body weight 134.[address] Shayna Malhotra Work Phone: [facility] 05-06-2022 16:07-0500 Diastolic blood pressure 91 mm[Hg] Dr. Shayna Malhotra Work Phone: [facility] 05-06-2022 16:07-0500 Heart rate 118 /min Dr. Shayna Malhotra Work Phone: [facility] 05-06-2022 16:07-0500 Respiratory rate 18 /min Dr. Shayna Malhotra Work Phone: [facility] 05-06-2022 16:07-0500 SaO2% (BldA) [Mass fraction] 96 % Dr. Shayna Malhotra Work Phone: [facility] 05-06-2022 16:07-0500 Systolic blood pressure 167 mm[Hg] Dr. Shayna Malhotra Work Phone: [facility] 11-24-2021 16:06-0400 Heart rate 100 /min Dr. Shayna Malhotra Work Phone: [facility] Work Phone: 11-24-2021 16:04-0400 Body temperature 98.4 [degF] Dr. Shayna Malhotra Work Phone: [facility] Work Phone: 11-24-2021 16:04-0400 Diastolic blood pressure 82 mm[Hg] Dr. Shayna Malhotra Work Phone: [facility] Work Phone: 11-24-2021 16:04-0400 Respiratory rate 17 /min Dr. Shayna Malhotra Work Phone: [facility] Work Phone: 11-24-2021 16:04-0400 SaO2% (BldA) [Mass fraction] 95 % Dr. Shayna Malhotra Work Phone: [facility] Work Phone: 11-24-2021 16:04-0400 Systolic blood pressure 147 mm[Hg] Dr. Shayna Malhotra Work Phone: [facility] Work Phone: 11-24-2021 08:43-0400 Body temperature 98 [degF] Dr. Shayna Malhotra Work Phone: [facility] Work Phone: 11-24-2021 08:43-0400 Diastolic blood pressure 61 mm[Hg] Dr. Shayna Malhotra Work Phone: [facility] Work Phone: 11-24-2021 08:43-0400 Heart rate 94 /min Dr. Shayna Malhotra Work Phone: [facility] Work Phone: 11-24-2021 08:43-0400 Respiratory rate 15 /min Dr. Shayna Malhotra Work Phone: [facility] Work Phone: 11-24-2021 08:43-0400 SaO2% (BldA) [Mass fraction] 95 % Dr. Shayna Malhotra Work Phone: [facility] Work Phone: 11-24-2021 08:43-0400 Systolic blood pressure 113 mm[Hg] Dr. Shayna Malhotra Work Phone: [facility] Work Phone: 11-24-2021 06:00-0400 Body weight 141.[address] Shayna Malhotra Work Phone: [facility] Work Phone: 11-23-2021 09:21-0400 Body height 165.[address] Shayna Malhotra Work Phone: [facility] Work Phone: 11-22-2021 17:49-0400 Body height 165.[address] Shayna Malhotra Work Phone: [facility] Work Phone: 11-22-2021 17:49-0400 Body mass index (BMI) [Ratio] 51.5 kg/m2 Dr. Shayna Malhotra Work Phone: [facility] Work Phone: 11-22-2021 17:49-0400 Body weight 140.[address] Shayna Malhotra Work Phone: [facility] Work Phone: 11-22-2021 17:05-0400 Body temperature 98.9 [degF] Dr. Shayna Malhotra Work Phone: [facility] Work Phone: 11-22-2021 17:05-0400 Diastolic blood pressure 78 mm[Hg] Dr. Shayna Malhotra Work Phone: [facility] Work Phone: 11-22-2021 17:05-0400 Heart rate 120 /min Dr. Shayna Malhotra Work Phone: [facility] Work Phone: 11-22-2021 17:05-0400 Respiratory rate 28 /min Dr. Shayna Malhotra Work Phone: [facility] Work Phone: 11-22-2021 17:05-0400 SaO2% (BldA) [Mass fraction] 96 % Dr. Shayna Malhotra Work Phone: [facility] Work Phone: 11-22-2021 17:05-0400 Systolic blood pressure 119 mm[Hg] Dr. Shayna Malhotra Work Phone: [facility] Work Phone: 10-02-2021 12:46-0400 Body height 165.1 cm Jennifer Cuevas MD Work Phone: [facility] 10-02-2021 12:46-0400 Body temperature 97.39 [degF] Jennifer Cuevas MD Work Phone: [facility] 10-02-2021 12:46-0400 Body weight 136.53 kg Jennifer Cuevas MD Work Phone: [facility] 10-02-2021 12:46-0400 Diastolic blood pressure 85 mm[Hg] Jennifer Cuevas MD Work Phone: [facility] 10-02-2021 12:46-0400 Heart rate 103 /min Jennifer Cuevas MD Work Phone: [facility] 10-02-2021 12:46-0400 Respiratory rate 20 /min Jennifer Cuevas MD Work Phone: [facility] 10-02-2021 12:46-0400 SaO2% (BldA) [Mass fraction] 98 % Jennifer Cuevas MD Work Phone: [facility] 10-02-2021 12:46-0400 Systolic blood pressure 152 mm[Hg] Jennifer Cuevas MD Work Phone: [facility] 09-22-2021 09:30-0400 Body temperature 98.4 [degF] Dr. Shayna Malhotra Work Phone: [facility] Work Phone: 09-22-2021 09:30-0400 Diastolic blood pressure 87 mm[Hg] Dr. Shayna Malhotra Work Phone: [facility] Work Phone: 09-22-2021 09:30-0400 Heart rate 85 /min Dr. Shayna Malhotra Work Phone: [facility] Work Phone: 09-22-2021 09:30-0400 Respiratory rate 17 /min Dr. Shayna Malhotra Work Phone: [facility] Work Phone: 09-22-2021 09:30-0400 SaO2% (BldA) [Mass fraction] 94 % Dr. Shayna Malhotra Work Phone: [facility] Work Phone: 09-22-2021 09:30-0400 Systolic blood pressure 151 mm[Hg] Dr. Shayna Malhotra Work Phone: [facility] Work Phone: 09-20-2021 13:57-0400 Body height 166.[address] Shayna Malhotra Work Phone: [facility] Work Phone: 09-20-2021 13:57-0400 Body weight 137.[address] Shayna Malhotra Work Phone: [facility] Work Phone: 09-20-2021 12:38-0400 Body mass index (BMI) [Ratio] 49.6 kg/m2 Dr. Shayna Malhotra Work Phone: [facility] Work Phone: 09-20-2021 12:06-0400 Body temperature 98 [degF] Dr. Shayna Malhotra Work Phone: [facility] Work Phone: 09-20-2021 12:06-0400 Diastolic blood pressure 71 mm[Hg] Dr. Shayna Malhotra Work Phone: [facility] Work Phone: 09-20-2021 12:06-0400 Heart rate 101 /min Dr. Shayna Malhotra Work Phone: [facility] Work Phone: 09-20-2021 12:06-0400 Respiratory rate 16 /min Dr. Shayna Malhotra Work Phone: [facility] Work Phone: 09-20-2021 12:06-0400 SaO2% (BldA) [Mass fraction] 97 % Dr. Shayna Malhotra Work Phone: [facility] Work Phone: 09-20-2021 12:06-0400 Systolic blood pressure 163 mm[Hg] Dr. Shayna Malhotra Work Phone: [facility] Work Phone: 09-20-2021 07:17-0400 Body height 165.[address] Shayna Malhotra Work Phone: [facility] Work Phone: 09-20-2021 07:17-0400 Body mass index (BMI) [Ratio] 52.5 kg/m2 Dr. Shayna Malhotra Work Phone: [facility] Work Phone: 09-20-2021 07:17-0400 Body weight 143.[address] Shayna Malhotra Work Phone: [facility] Work Phone: 09-01-2021 15:00-0400 Body height 165.1 cm [address] 1 [facility] 09-01-2021 15:00-0400 Body temperature 97.5 [degF] Pst 1 [facility] 09-01-2021 15:00-0400 Body weight 128.82 kg Pst 1 [facility] 09-01-2021 15:00-0400 Diastolic blood pressure 71 mm[Hg] Pst 1 [facility] 09-01-2021 15:00-0400 Heart rate 97 /min Pst 1 [facility] 09-01-2021 15:00-0400 Respiratory rate 18 /min Pst 1 [facility] 09-01-2021 15:00-0400 SaO2% (BldA) [Mass fraction] 97 % Pst 1 [facility] 09-01-2021 15:00-0400 Systolic blood pressure 127 mm[Hg] Pst 1 [facility] 08-11-2021 09:26-0500 Body mass index (BMI) [Ratio] 50.9 kg/m2 Dr. Shayna Malhotra Work Phone: [facility] Work Phone: 08-11-2021 09:26-0500 Body temperature 98.2 [degF] Dr. Shayna Malhotra Work Phone: [facility] Work Phone: 08-11-2021 09:26-0500 Body weight 138.[address] Shayna Malhotra Work Phone: [facility] Work Phone: 08-11-2021 09:26-0500 Diastolic blood pressure 83 mm[Hg] Dr. Shayna Malhotra Work Phone: [facility] Work Phone: 08-11-2021 09:26-0500 Heart rate 114 /min Dr. Shayna Malhotra Work Phone: [facility] Work Phone: 08-11-2021 09:26-0500 Respiratory rate 16 /min Dr. Shayna Malhotra Work Phone: [facility] Work Phone: 08-11-2021 09:26-0500 SaO2% (BldA) [Mass fraction] 96 % Dr. Shayna Malhotra Work Phone: [facility] Work Phone: 08-11-2021 09:26-0500 Systolic blood pressure 151 mm[Hg] Dr. Shayna Malhotra Work Phone: [facility] Work Phone: 08-11-2021 08:26-0500 Body mass index (BMI) [Ratio] 50.9 kg/m2 Dr. Shayna Malhotra Work Phone: [facility] Work Phone: 08-11-2021 08:26-0500 Body temperature 98.2 [degF] Dr. Shayna Malhotra Work Phone: [facility] Work Phone: 08-11-2021 08:26-0500 Body weight 138.[address] Shayna Malhotra Work Phone: [facility] Work Phone: 08-11-2021 08:26-0500 Diastolic blood pressure 83 mm[Hg] Dr. Shayna Malhotra Work Phone: [facility] Work Phone: 08-11-2021 08:26-0500 Heart rate 114 /min Dr. Shayna Malhotra Work Phone: [facility] Work Phone: 08-11-2021 08:26-0500 Respiratory rate 16 /min Dr. Shayna Malhotra Work Phone: [facility] Work Phone: 08-11-2021 08:26-0500 SaO2% (BldA) [Mass fraction] 96 % Dr. Shayna Malhotra Work Phone: [facility] Work Phone: 08-11-2021 08:26-0500 Systolic blood pressure 151 mm[Hg] Dr. Shayna Malhotra Work Phone: [facility] Work Phone: 07-30-2021 14:36-0500 Body mass index (BMI) [Ratio] 50.8 kg/m2 Dr. Shayna Malhotra Work Phone: [facility] Work Phone: 07-30-2021 14:36-0500 Body temperature 98.6 [degF] Dr. Shayna Malhotra Work Phone: [facility] Work Phone: 07-30-2021 14:36-0500 Body weight 138.[address] Shayna Malhotra Work Phone: [facility] Work Phone: 07-30-2021 14:36-0500 Heart rate 106 /min Dr. Shayna Malhotra Work Phone: [facility] Work Phone: 07-30-2021 14:36-0500 Respiratory rate 15 /min Dr. Shayna Malhotra Work Phone: [facility] Work Phone: 07-30-2021 13:36-0500 Body mass index (BMI) [Ratio] 50.8 kg/m2 Dr. Shayna Malhotra Work Phone: [facility] Work Phone: 07-30-2021 13:36-0500 Body temperature 98.6 [degF] Dr. Shayna Malhotra Work Phone: [facility] Work Phone: 07-30-2021 13:36-0500 Body weight 138.[address] Shayna Malhotra Work Phone: [facility] Work Phone: 07-30-2021 13:36-0500 Heart rate 106 /min Dr. Shayna Malhotra Work Phone: [facility] Work Phone: 07-30-2021 13:36-0500 Respiratory rate 15 /min Dr. Shayna Malhotra Work Phone: [facility] Work Phone: 07-26-2021 12:28-0500 Diastolic blood pressure 72 mm[Hg] Dr. Shayna Malhotra Work Phone: [facility] Work Phone: 07-26-2021 12:28-0500 Heart rate 98 /min Dr. Shayna Malhotra Work Phone: [facility] Work Phone: 07-26-2021 12:28-0500 Respiratory rate 23 /min Dr. Shayna Malhotra Work Phone: [facility] Work Phone: 07-26-2021 12:28-0500 SaO2% (BldA) [Mass fraction] 99 % Dr. Shayna Malhotra Work Phone: [facility] Work Phone: 07-26-2021 12:28-0500 Systolic blood pressure 140 mm[Hg] Dr. Shayna Malhotra Work Phone: [facility] Work Phone: 07-26-2021 11:28-0500 Diastolic blood pressure 72 mm[Hg] Dr. Shayna Malhotra Work Phone: [facility] Work Phone: 07-26-2021 11:28-0500 Heart rate 98 /min Dr. Shayna Malhotra Work Phone: [facility] Work Phone: 07-26-2021 11:28-0500 Respiratory rate 23 /min Dr. Shayna Malhotra Work Phone: [facility] Work Phone: 07-26-2021 11:28-0500 SaO2% (BldA) [Mass fraction] 99 % Dr. Shayna Malhotra Work Phone: [facility] Work Phone: 07-26-2021 11:28-0500 Systolic blood pressure 140 mm[Hg] Dr. Shayna Malhotra Work Phone: [facility] Work Phone: 07-26-2021 09:16-0500 Body mass index (BMI) [Ratio] 52.2 kg/m2 Dr. Shayna Malhotra Work Phone: [facility] Work Phone: 07-26-2021 09:16-0500 Body temperature 97.2 [degF] Dr. Shayna Malhotra Work Phone: [facility] Work Phone: 07-26-2021 09:16-0500 Body weight 142.[address] Shayna Malhotra Work Phone: [facility] Work Phone: 07-26-2021 08:16-0500 Body mass index (BMI) [Ratio] 52.2 kg/m2 Dr. Shayna Malhotra Work Phone: [facility] Work Phone: 07-26-2021 08:16-0500 Body temperature 97.2 [degF] Dr. Shayna Malhotra Work Phone: [facility] Work Phone: 07-26-2021 08:16-0500 Body weight 142.[address] Shayna Malhotra Work Phone: [facility] Work Phone: 10-26-2016 15:36-0400 BMI (Body Mass Index) 41.6 kg/m2 Sena Cox NP [facility] Work Phone: 10-26-2016 15:36-0400 BP Diastolic 97 mm[Hg] Sena Cox NP [facility] Work Phone: 10-26-2016 15:36-0400 BP Systolic 155 mm[Hg] Sena Cox NP [facility] Work Phone: 10-26-2016 15:36-0400 BSA (Body Surface Area) 2.12 m2 Sena Cox NP [facility] Work Phone: 10-26-2016 15:36-0400 Height 162.56 cm Sena Cox NP [facility] Work Phone: 10-26-2016 15:36-0400 Pulse (Heart Rate) 101 /min [facility] Work Phone: 10-26-2016 15:36-0400 Pulse Oximetry 97 % Sena Cox NP [facility] Work Phone: 10-26-2016 15:36-0400 Respiratory Rate 16 /min Sena Cox NP [facility] Work Phone: 10-26-2016 15:36-0400 Weight 109.95 kg [facility]: Encounters Encounter Date Encounter Type Care Provider Facility Start: 04-16-2025 ambulatory Shayna Marya Facility :[facility] Start: 04-01-2025 ambulatory Shaynadesi Malhotra Facility :[facility] Start: 03-20-2025 ambulatory Shaynadesi Malhotra Facility :[facility] Start: 01-21-2025 ambulatory Shaynadesi Malhotra Facility :[facility] Start: 01-21-[address] Malathi Tomas MD -[facility] Work Phone: Start: 12-04-2024 End: 12-04-[address] Shayna Malhotra MD Work Phone: -[facility] Start: 12-04-2024 End: 12-04-[address] Malathi Tomas MD -[facility] Start: 12-04-2024 End: 12-04-2024 ambulatory Shaynadesi Malhotra Facility:[facility] Start: 11-26-2024 ambulatory Shaynadesi Malhotra Facility :[facility] Start: 11-26-[address] Malathi Tomas MD -[facility] Start: 11-07-2024 ambulatory Shaynadesi Malhotra Facility :[facility] Start: 11-01-2024 ambulatory Shayna Malhotra Facility :[facility] Start: 10-30-2024 ambulatory Shaynadesi Malhotra Facility :[facility] Start: 10-25-2024 ambulatory Shaynadesi Malhotra Facility :[facility] Start: 10-11-2024 End: 10-11-2024 ambulatory Shea Lele Facility:[facility] Start: 10-10-2024 Non-patient / Non-visit Dr. Tyrell Page MD -[facility] Work Phone: Start: 10-09-2024 ambulatory Missael Whitfield ty:[facility] Start: 10-09-2024 End: 05-08-2025 Evaluation and management of inpatient Dr. Missael Hernandez DO -[facility] Work Phone: Start: 10-09-2024 Registered Referred Shayna Resendez [facility] Work Phone: Start: 10-08-2024 End: 10-09-2024 ambulatory Shayna ROSA Facility:[facility] Start: 07-09-2024 ambulatory Shayna ROSA Faci lity:[facility] Start: 07-09-2024 Registered Referred Shayna Resendez [facility] Work Phone: Start: 07-04-2024 End: 07-04-[address] Shayna Malhotra MD -[facility] Work Phone: Start: 07-04-2024 End: 07-04-2024 ambulatory Shayna Malhotra Facility:[facility] Start: 06-22-2024 ambulatory [facility] Marya Facility :[facility] Start: 05-28-2024 End: 05-28-2024 [facility] Start: 07-08-2023 End: 07-08-2023 ambulatory [facility] Work Phone: Start: 07-08-2023 End: 07-08-2023 Departed Referred [facility] Work Phone: Start: 04-08-2023 End: 04-08-2023 Departed Referred [facility] Work Phone: Start: 01-09-2023 End: 01-09-2023 Emergency department patient visit Dr. Shayna Malhotra Work Phone: [facility]Emergency [facility] Work Phone: Start: 11-24-2022 End: 11-24-[address] Shayna Malhotra Work Phone: [facility] Work Phone: Start: 10-13-2022 End: 10-13-[address] Shayna Malhotra Work Phone: [facility] Work Phone: Start: 08-12-2022 End: 08-12-[address] Shayna Malhotra Work Phone: [facility] Work Phone: Start: 08-12-2022 End: 08-12-[address] Shayna Malhotra Work Phone: [facility] Start: 07-13-2022 End: 07-13-[address] Shayna Malhotra Work Phone: [facility] Work Phone: Start: 07-13-2022 End: 07-13-[address] Shayna Malhotra Work Phone: [facility] Start: 06-08-2022 End: 06-08-[address] Shayna Malhotra Work Phone: [facility] Work Phone: Start: 06-08-2022 End: 06-08-[address] Shayna Malhotra Work Phone: [facility] Start: 05-06-2022 End: 05-06-[address] Shayna Malhotra Work Phone: [facility] Start: 04-13-2022 End: 04-13-2022 ambulatory [facility] Work Phone: Start: 04-13-2022 End: 04-13-2022 Departed Referred [facility] Start: 01-01-2022 End: 01-01-[address] Shayna Malhotra Work Phone: [place] [id number] Start: 12-11-[address] Shayna Malhotra Work Phone: [facility] [phone] Start: 12-01-[address] Shayna Malhotra Work Phone: [facility] 100/200 Start: 11-27-[address] Shayna Malhotra Work Phone: [facility] 100/200 Start: 11-24-2021 Non-patient / Non-visit Dr. Maryanne Malhotra Work Phone: [facility] Start: 11-23-2021 Non-patient / Non-visit Dr. Maryanne Malhotra Work Phone: [facility] Start: 11-23-2021 End: 11-24-2021 Non-patient / Non-visit Dr. Shayna Malhotra Work Phone: [facility] Start: 11-22-2021 Non-patient / Non-visit Dr. Maryanne Malhotra Work Phone: [facility] Start: 11-22-2021 End: 11-24-2021 Evaluation and management of inpatient Dr. Shayna Malhotra Work Phone: [facility]Intensive Care Unit Start: 10-27-2021 End: 10-27-[address] Shayna Malhotra Work Phone: [facility] Start: 10-13-2021 End: 10-13-[address] Shayna Malhotra Work Phone: [facility] Start: 10-13-[address] Shayna Malhotra Work Phone: [facility] Start: 10-02-2021 End: 10-02-2021 ambulatory Jennifer Cuevas MD Work Phone: [facility] Gynecology Oncology Comment on above: Endometrial cancer ( HCC) (Primary Dx) Start: 10-02-2021 End: 10-02-2021 Patient encounter procedure Jennifer Cuevas MD Work Phone: [facility] Start: 09-22-2021 Non-patient / Non-visit Dr. Maryanne Malhotra Work Phone: [facility] Start: 09-21-2021 Telephone encounter Jennifer prasad MD Work Phone: [facility] Gynecology Oncology Comment on above: Appointment Cancelle d Start: 09-21-2021 Non-patient / Non-visit Dr. Maryanne Malhotra Work Phone: [facility] Start: 09-20-2021 Non-patient / Non-visit Dr. Maryanne Malhotra Work Phone: [facility] Start: 09-20-2021 End: 09-22-2021 Evaluation and management of inpatient Dr. Shayna Malhotra Work Phone: [facility] 3 Start: 09-10-2021 Telephone encounter Taniya Balderas APRN.CNP Work Phone: [facility] Gynecology Oncology Comment on above: Results Start: 09-10-2021 End: 09-10-[address] Shayna Malhotra Work Phone: [facility] Start: 09-10-[address] Shayna Malhotra Work Phone: [facility] Start: 09-09-2021 Telephone encounter Jennifer prasad MD Work Phone: [facility] Gynecology Oncology Comment on above: Patient Update Start: 09-01-2021 End: 09-01-2021 Admission to [address] Start: 09-01-2021 End: 09-01-2021 ambulatory Pst [...] encounter procedure Dr[facility] Start: 08-07-2021 End: 08-07-[address] Shay[facility] Malhotra [facility] Start: 07-30-[address] Shayna Malhotra Work Phone: [facility] Oncology Start: 07-30-2021 End: 07-30-[address] Shayna Malhotra Work Phone: [facility] Start: 07-26-2021 End: 07-26-2021 Emergency department patient visit Dr. Shayna Malhotra Work Phone: [facility]-Emergency Department Start: 07-14-[address] Shayna Malhotra Work Phone: [facility] Start: 07-08-[address] Shayna Malhotra Work Phone: [facility] Start: 06-12-[address] Shayna Malhotra Work Phone: [facility] Procedures Date Procedure Procedure Detail Performing Clinician [...] Speci men Type: BLOOD SPECIMEN Ordering Facility: [facility] Address: [address] [place], [place] [id number] Performed By: #### T [id number] #### [facility] CLIA [id number] [address] Start: 08-11-2021 Plain chest X-ray Dr. [...] Activity Detail Author Start: 10-11-2024 Patient discharge [facility] Start: 10-10-2024 [facility] Start: 10-10-2024 Consultation [facility] Start: 10-10-2024 Patient referral to dietitian [facility] Start: 10-09-2024 Following clinical pathway protocol [facility] Start: 10-09-2024 Assessment of risk o f venous thromboembolism [facility] Start: 10-09-2024 Care regimes management [facility] Start: 10-09-2024 Incentive spirometry [facility] Start: 10-09-2024 Insertion of cathete r into peripheral vein [facility] Start: 10-09-2024 Measuring intake and output [facility] Start: 10-09-2024 Notification of physician [facility] Start: 10-09-2024 Oxygen therapy [facility] Start: 10-09-2024 Providing care accor ding to standard [facility] Start: 10-09-2024 Provision of activit y privileges [facility] Start: 10-09-2024 Referral to occupati onal therapist [facility] Start: 10-09-2024 Referral to service [facility] Start: 10-09-2024 Seizure precautions [facility] Start: 10-09-2024 End: 10-09-2024 [facility] Start: 10-09-2024 MR Lower extremity W O contrast [facility] Start: 10-09-2024 MRI of lower extremity Extremi ty Lower without Contra [facility] Start: 10-09-2024 Verification routine [facility] Start: 10-09-2024 Admission procedure [facility] Start: 10-09-2024 Hospital admission, emergency, from emergency room, medical nature [facility] Start: 10-09-2024 End: 10-10-2024 [facility] Start: 10-09-2024 Thyroid stimulating hormone measurement [facility] Start: 10-09-2024 Consultation [facility] [facility] Start: 10-09-2024 Bacteria identified in Urine by Culture Urine Culture [facility] Start: 10-09-2024 Urine culture [facility] Start: 10-09-2024 Consultation [facility] Start: 10-09-2024 Patient referral to dietitian [facility] Start: 09-07-2024 DIABETES SCREEN DIABETES SCREEN [facility] Start: 07-04-2024 Patient referral [facility] Work Phone: Start: 11-24-2022 Patient referral [facility] Work Phone: Start: 05-06-2022 Patient referral [facility] Work Phone: Start: 02-04-2022 Influenza vaccination INFLUENZ A (Season Ended) [facility] Start: 11-25-2021 [facility] Work Phone: Start: 11-24-2021 Patient discharge [facility] Work Phone: Start: 11-22-2021 Troponin I measurement [facility] Work Phone: Start: 11-22-2021 Verification routine [facility] Work Phone: Start: 11-22-2021 Patient referral to dietitian [facility] Work Phone: Start: 11-22-2021 Following clinical pathway protocol [facility] Work Phone: Start: 11-22-2021 Assessment of risk o f venous thromboembolism [facility] Work Phone: Start: 11-22-2021 Care regimes management [facility] Work Phone: Start: 11-22-2021 Catheterization of vein [facility] Work Phone: Start: 11-22-2021 Insertion of cathete r into peripheral vein [facility] Work Phone: Start: 11-22-2021 Measuring intake and output [facility] Work Phone: Start: 11-22-2021 Providing care accor ding to standard [facility] Work Phone: Start: 11-22-2021 Provision of activit y privileges [facility] Work Phone: Start: 11-22-2021 Referral to occupati onal therapist [facility] Work Phone: Start: 11-22-2021 Referral to service [facility] Work Phone: Start: 11-22-2021 [facility] Work Phone: Start: 11-22-2021 Viral nucleic acid assay [facility] Work Phone: Start: 11-22-2021 Admission procedure [facility] Work Phone: Start: 11-22-2021 [facility] Work Phone: Start: 11-22-2021 End: 11-23-2021 [facility] Work Phone: Start: 11-22-2021 End: 11-22-2021 Blood culture [facility] Work Phone: Start: 09-22-2021 Patient discharge [facility] Work Phone: Start: 09-20-2021 End: 09-21-2021 [facility] Work Phone: Start: 09-20-2021 Following clinical pathway protocol [facility] Work Phone: Start: 09-20-2021 Assessment of risk o f venous thromboembolism [facility] Work Phone: Start: 09-20-2021 Care regimes management [facility] Work Phone: Start: 09-20-2021 Elevation of affecte d extremity [facility] Work Phone: Start: 09-20-2021 Insertion of cathete r into peripheral vein [facility] Work Phone: Start: 09-20-2021 Notification of physician [facility] Work Phone: Start: 09-20-2021 Providing care accor ding to standard [facility] Work Phone: Start: 09-20-2021 Provision of activit y privileges [facility] Work Phone: Start: 09-20-2021 Referral to occupati onal therapist [facility] Work Phone: Start: 09-20-2021 Referral to service [facility] Work Phone: Start: 09-20-2021 Self-administration of medication [facility] Work Phone: Start: 09-20-2021 Admission procedure [facility] Work Phone: Start: 09-20-2021 Patient referral to dietitian [facility] Work Phone: Start: 09-01-2021 End: 11-01-2021 CBC panel - Blood by Automated count [facility] Work Phone: Comment on above: Expected: 09/01/2021 , Expires: 11/01/2021 Start: 09-01-2021 End: 11-01-2021 CONFIRM BLOOD TYPE [facility] Work Phone: Comment on above: Expected: 09/01/2021 , Expires: 11/01/2021 Start: 09-01-2021 End: 11-01-2021 TYPE AND SCREEN,30 DAY [facility] Work Phone: Comment on above: Expected: 09/01/2021 , Expires: 11/01/2021 Start: 07-26-2021 Referral to oncologist [facility] Work Phone: Start: 06-06-2021 ADVANCE DIRECTIVE DISCUSSION ADVANCE DIRECTIVE DISCUSSION [facility] Start: 02-09-2021 LIPID SCREEN LIPID SCREEN [facility] Start: 02-04-2021 Influenza vaccination INFLUENZA (#1) [facility] Start: 03-01-2019 DIABETES SCREEN DIABETES SCREEN [facility] Start: 2017 BONE DENSITY BONE DENSITY [facility] Start: 2017 PNEUMOVAX AGE 65 AND OVER WITH 5YR LOOKBACK (#1) PNEUMOVAX AGE 65 AND OVER WITH 5YR LOOKBACK (#1) [facility] Start: 02-09-2017 Adult depression screening assessment DEPRESSION SCREENING [facility] Start: 02-09-2017 Mammography MAMMOGRAM [facility] Start: 12-09-2016 End: 12-09-2016 Appointment [facility] Work Phone: Start: 10-26-2016 End: 10-26-2016 Appointment Appointment [facility] Work Phone: Start: 10-26-2016 End: 10-26-2016 Appointment Appointment [facility] Work Phone: Start: 10-26-2016 End: 11-01-2016 *CMP Complete Metabolic Panel *CMP Complete Metabolic Panel [facility] Work Phone: Start: 10-26-2016 End: 11-01-2016 *Microalbumin, Creatine Ratio, rand urine *Microalbumin, Creatine Ratio, rand urine [facility] Work Phone: Start: 10-26-2016 End: 11-01-2016 HbA1c *HgA1C [facility] Work Phone: Start: 10-26-2016 End: 11-01-2016 Lipid panel [AGGREGATE] *Lipid Profile [facility] Work Phone: Start: 09-05-2011 PNEUMOCOCCAL: 65+ (2 - PCV) PNEUMOCOCCAL: 65+ (2 - PCV) [facility] Start: 2002 SHINGRIX VACCINE (1 of 2) SHINGRIX VACCINE (1 of 2) [facility] Start: 1997 COLOGUARD (FIT-DNA) COLOGUARD (FIT-D NA) [facility] Start: 1997 Colonoscopy COLONOSCOPY [facility] Start: 1997 COLORECTAL CANCER SCREENING COLORECTAL CANCER SCREENING [facility] Start: [address] COLONOGRAPHY [facility] Start: 1997 FECAL OCCULT BLOOD FECAL OCCULT BLOO D [facility] Start: 1997 SIGMOIDOSCOPY SIGMOIDOSCOPY [facility] Start: 12-28-1971 SHINGRIX VACCINE (1 of 2) SHINGRIX VACCINE (1 of 2) [facility] Start: 12-28-1971 Urine microalbumin profile DTAP,TDAP,TD (1 - Tdap) [facility] Start: 1957 COVID-19 VACCINE (#1) COVID-19 VACCI NE (#1) [facility] Start: 1957 COVID-19 VACCINE (1) COVID-19 VACCIN E (1) [facility] Amphetamines [Presen ce] in Urine by Screen method >1000 ng/mL [facility] Bacteria identified in Blood by Culture Blood Culture [facility] Work Phone: Bacteria identified in Urine by Culture Urine Culture [facility] Work Phone: Benzodiazepine measurement, urine [facility] Blood culture [facility] Work Phone: C reactive protein [Mass/volume] in Serum or Plasma [facility] Cancer Ag 125 [Units/volume] in Serum or Plasma [facility] Work Phone: Cocaine measurement, urine [facility] Erythrocyte sedimentation rate [facility] Ethanol [Mass/volume ] in Serum or Plasma [facility] fentaNYL [Presence] in Urine by Screen method [facility] Folate [Moles/volume ] in Serum or Plasma [facility] Hemoglobin A1c/Hemoglobin.total in Blood [facility] Magnesium measurement [facility] Methadone measuremen t, urine [facility] Work Phone: Patient referral [facility] Work Phone: Phencyclidine [Prese nce] in Urine [facility] Troponin I measurement [facility] Work Phone: Urine cannabinoid measurement [facility] Urine culture [facility] Urine opiate measurement [facility] Immunizations Immunization Date Immunization Notes Care Provider Arlin sen 03-30-2016 influenza, injectabl e, quadrivalent, preservative free [facility] 03-30-2016 influenza, seasonal, injectable Dr. Shayna Malhotra Work Phone: [facility] 10-31-2012 influenza, injectabl e, quadrivalent, preservative free [facility] 10-31-2012 influenza, seasonal, injectable Dr. Shayna Malhotra Work Phone: [facility] 06-06-2012 pneumococcal polysaccharide vaccine, [address] Shayna Malhotra Work Phone: [facility] 09-04-2010 pneumococcal polysaccharide vaccine, [address] [facility] Work Phone: Payers Date Payer Category Payer Self-pay [id number] 2021 Medicare [id number] 1.2.8 [id number] 2016 Unknown [id number] 2016 Unknown [id number] Unknown [id number] 2.16.8 [id number] Unknown [id number] 2.16.8 40.1.956127.3.579.2.462 Unknown [id number] 2.16.8 40.1.614192.3.579.2.462 Unknown [id number] 2.16.8 40.1.817556.3.579.2.462 Unknown [id number] 2.16.8 40.1.497706.3.579.2.462 Unknown [id number] 2.16.8 40.1.139018.3.579.2.462 Unknown [id number] 2.16.8 40.1.226374.3.579.2.462 Unknown [id number] 2.16.8 40.1.364418.3.579.2.462 Unknown [id number] 2.16.8 40.1.186826.3.579.2.462 Unknown [id number] 2.16.8 40.1.938861.3.579.2.462 Unknown [id number] 2.16.8 40.1.119959.3.579.2.462 Unknown [id number] 2.16.8 40.1.959995.3.579.2.462 Unknown [id number] 2.16.8 40.1.483492.3.579.2.462 Unknown [id number] 2.16.8 40.1.416852.3.579.2.462 Unknown [id number] 2.16.8 40.1.157894.3.579.2.462 Unknown [id number] 2.16.8 40.1.935314.3.579.2.462 Unknown [id number] 2.16.8 40.1.604295.3.579.2.462 Unknown [id number] 2.16.8 40.1.868257.3.579.2.462 Unknown [id number] 2.16.8 40.1.160731.3.579.2.462 Unknown [id number] 2.16.8 40.1.499992.3.579.2.462 Unknown [id number] 2.16.8 40.1.439300.3.579.2.462 Social History Date Type Detail Facility Start: 07-29-2021 End: 10-09-2024 Tobacco smoking status VTIS Ex-smoker [facility] History of tobacco use Cigarette Smoker [facility] Start: 07-29-2021 Cigarettes smoked current (pack per day) - Reported 0.5 [facility] Start: 07-29-2021 Tobacco use and exposure Smokeless tobacco non-user [facility] Start: 09-01-2021 End: 10-02-2021 Alcohol intake Current non-drinker of alcohol (finding) [facility] Start: 1950 Sex Assigned At Not on file [facility] Start: 08-22-2021 End: 10-02-2021 Exposure to SARS-CoV-2 (event) Not sure [facility] Start: 09-20-2021 End: 01-09-2023 Tobacco smoking status VTIS Unknown if ever smoked [facility] Start: 08-02-2017 None [facility] Start: 08-02-2017 Alone [facility] Start: 08-02-2017 Non-smoker [facility] Start: 1950 Sex Assigned At Female W [facility] Start: 10-09-2024 Sex Female (finding) [facility] Sex Female [facility] Medical Equipment Procedure Code Equipment Code [...] Activity Abili ty With Assist of 2 [facility] Work Phone: 10-10-2024 Functional status Active Range of Motion [facility] Work Phone: 11-24-2021 Functional status Ambulates;Chair [facility] Work Phone: 09-22-2021 Functional status Ambulates [facility] Work Phone: 09-22-2021 Functional status Ambulates [facility] Work Phone: 09-21-2021 Functional status Tolerates Activity Well [facility] Work Phone: Mental Status Date Assessment Result Facility 10-11-2024 Cognitive function Voice/Name [facility] Work Phone: 10-10-2024 Cognitive function Cooperative;Anxious;Ta lkative [facility] Work Phone: 11-24-2021 Cognitive function Voice/Name [facility] Work Phone: 09-22-2021 Cognitive function Voice/Name [facility] Work Phone: 09-20-2021 Cognitive function Level Of Cons ciousness Awake;Alert;Appropriate;Follow s Commands;Drowsy [facility] Work Phone: Clinical Notes 07-29-2021 to 10-11-2024 Note Date & Type Note Facility 10-11-2024 Note [facility] Medical Records Department [address] [place] [address] Discharge Summary 10/11/24 1135 MR#: [id number] Acct: [id number] Name: IVDA NINA Rep #: [id number] : 1950 73 From: Tyrell Page MD PCP: Dr. Shayna Malhotra MD Status:DIS IN Location: MS3 [id number] Providers Date of Admission: 10/09/24 Date of [...] status: with other specified complication Diabetes mellitus usp insulin use: with watermelon inspector use Qualified Code(s): E11.69 - Type 2 diabetes mellitus with other specified complication; Z79.4 - FCI (current) use of insulin Plan 73-year-old female [...] edema. No soft tissue gas. Will consult metabolic specialist for further opinion. PT and OT and [...] 72.1 H, Lymph % (Auto) 16.3 L, [place] % (Auto) 8.3, Eos % (Auto) 2.5, Baso % (more content not included)... [facility] 10-10-2024 Progress note Note Date/Time October 10, 2024 4:49pm [facility] Medical Records Department [address] [place] [address] Progress Note - Hospitalist 10/10/24 0739 MR#: [id number] Acct: [id number] Name: VIDA NINA Rep #:[id number] : 1950 73 From: Tyrell Resendez PCP: Dr. Shayna Malhotra MD Status:ADM IN Location: [place] [address]-1 Reason for Visit Reason for Visit: Diagnoses Type 2 diabetes mellitus with other specified complication (10/09/24) Morbid (severe) obesity due to excess calories (10/09/24) Bipolar disorder, unspecified (10/09/24) Neuralgia and neuritis, unspecified (10/09/24) Acute cystitis with hematuria (10/09/24) Very low level of personal hygiene (10/09/24) Body mass index [BMI] 45.0-49.9, adult (10/09/24) Other specified health status (10/09/24) FCI (current) use of insulin (10/09/24) Objective Data [...] 72.1 H, Lymph % (Auto) 16.3 L, [place] % (Auto) 8.3, Eos % (Auto) 2.5, [...] Clarity Cloudy, Urine pH 5.0, Ur Specific [place] 1.020, Urine Protein 30 H, Urine Glucose [...] % (Auto) 65.4, Lymph % (Auto) 19.6, [place] % (Auto) 9.1, Eos % (Auto) 5.1 [...] arthritic changes. Soft tissue swelling. Reading Location: [facility] Lower Extremity CT 10/09/24 22:15 IMPRESSION: Lateral [...] Hernandez at 2:20 a.m. 10/10/2024 Reading Location: [id number] Physical Exam Narrative Seen and examined. Patient [...] status: with other specified complication Diabetes mellitus watermelon inspector insulin use: with watermelon inspector use Qualified Code(s): E11.69 - Type 2 diabetes mellitus with other specified complication; Z79.4 - FCI (current) use of insulin PLAN: Plan 73-year-old [...] edema. No soft tissue gas. Will consult metabolic specialist for further opinion. PT and OT and [...] 72.1 H, Lymph % (Auto) 16.3 L, [place] % (Auto) 8.3, Eos % (Auto) 2.5, [...] Clarity Cloudy, Urine pH 5.0, Ur Specific [place] 1.020, Urine Protein 30 H, Urine Glucose [...] % (Auto) 65.4, Lymph % (Auto) 19.6, [place] % (Auto) 9.1, Eos % (Auto) 5.1 [...] 165 H Charges/Coding Visit Charges Inpatient E&M: 02094 Subs Hosp L2 10/10/24 1530 <Electronically signed [...] need inpatient psych unit facility transfer 10/10/24 1262<Electronically signed by Tyrell Page MD> Cosigner Signature (if applicable): cc: ~* Signed [facility] Work Phone: 1(579) 785-655305-07-2025 Progress note [facility] Medical Records Department [address] [place] [address] Progress Note - Hospitalist 10/10/24 0739 MR#: [id number] Acct: [id number] Name: VIDA NINA Rep #:[id number] : 1950 73 From: Tyrell Resendez PCP: Dr. Shayna Malhotra MD Status:ADM IN Location: [place] [address] Reason for Visit Reason for Visit: Diagnoses [...] 72.1 H, Lymph % (Auto) 16.3 L, [place] % (Auto) 8.3, Eos % (Auto) 2.5, [...] Clarity Cloudy, Urine pH 5.0, Ur Specific [place] 1.020, Urine Protein 30 H, Urine Glucose [...] % (Auto) 65.4, Lymph % (Auto) 19.6, [place] % (Auto) 9.1, Eos % (Auto) 5.1 [...] arthritic changes. Soft tissue swelling. Reading Location: [facility] Lower Extremity CT 10/09/24 22:15 IMPRESSION: Lateral [...] Hernandez at 2:20 a.m. 10/10/2024 Reading Location: [id number] Physical Exam Narrative Seen and examined. Patient [...] status: with other specified complication Diabetes mellitus watermelon inspector insulin use: with usp use Qualified Code(s): E11.69 - Type 2 [...] edema. No soft tissue gas. Will consult metabolic specialist for further opinion. PT and OT and [...] 72.1 H, Lymph % (Auto) 16.3 L, [place] % (Auto) 8.3, Eos % (Auto) 2.5, [...] Clarity Cloudy, Urine pH 5.0, Ur Specific [place] 1.020, Urine Protein 30 H, Urine Glucose [...] % (Auto) 65.4, Lymph % (Auto) 19.6, [place] % (Auto) 9.1, Eos % (Auto) 5.1 [...] 165 H Charges/Coding Visit Charges Inpatient E&M: 27836 Subs Hosp L2 10/10/24 1530 Cosigner Signature [...] Cosigner Signature (if applicable): cc: ~* Signed [facility]05-07-2025 History and physical note Author Missael Lomeli [facility] Note Date/Time October 10, 2024 6:53am [facility] Medical Records Department [address] [place] [address] H&P Exam - Hospitalist 10/09/242118 MR#: [id number] Acct: [id number] Name: VIDA NINA Rep #:[id number] : 1950 73 From: Missael Joiner DO PCP: Dr. Shayna Malhotra MD Status:ADM IN Location: [facility] GV252-7 [facility] - General General Date of Admission: [...] is currently residing in assisted living at [facility] presents to [facility] ER complaining of worsening Left heel [...] skin folds and extremely poor hygiene with CLEANER GREASER having social work consulted and patient felt [...] is expected to extend beyond 2 midnights. [facility] Medical History Obesity Anxiety Cancer Anxiety Diabetes [...] acetonide 0.1 % 1 applic topical Q12H SD N PRN Rash 09/20/21 Unknown History topical [...] (Auto) 72.1 H, Lymph % (Auto) 16.3 L,[place] % (Auto) 8.3, Eos % (Auto) 2.5, [...] Clarity Cloudy, Urine pH 5.0, Ur Specific [place] 1.020, Urine Protein 30 H, Urine Glucose [...] changes. Soft tissue swelling. Reading Location: [facility] Imaging Services [address] [place] [address] Extremity Lower without Contra MR#: [id number] Acct: [id number] Name: VIDA NINA Rep #: [id number] : 1950 F 73 From: Saul Sanchez MD PCP: Dr. Shayna Malhotra MD Status: ADM IN Study: Extremity Lower without Contra Date of Exam: 10/09/24 Exam# [id number] Ordering Dr: Missael Hernandez DO PROCEDURE: EXTREMITY [...] Hernandez at 2:20 a.m. 10/10/2024 Reading Location: [id number] CC: Dr. Missael Hernandez, DO; Dr. Shayna Malhotra MD ~ Material Mixer: Signed Assessment & Plan Assessment/Plan (1) Acute cystitis with hematuria: (2) Neuropathic pain of foot: (3) Poor hygiene: (4) Unable to care for self: (5) Bipolar 1 disorder: (6) Morbid obesity with BMI of 45.0-49.9, adult: (7) DM2 (diabetes mellitus, type 2): QUALIFIERS: Diabetes mellitus complication status: with other specified complication Diabetes mellitus watermelon inspector insulin use: with watermelon inspector use Qualified Code(s): E11.69 - Type 2 diabetes mellitus with other specified complication; Z79.4 - 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 PLAN: Plan 1. Acute Cystitis; with microscopic hematuria in the setting of known frequent UTIs - Admit to general medical floor. Continue empiric IV ceftriaxone and await culture and sensitivity data. Give acetaminophen as needed for [id number]-[id number] (level 1- 5/10) pain or fever. Give [...] 75 minutes. Charges/Coding Visit Charges Inpatient E&M: 14610 Init Hosp L3 10/10/24 0653 <Electronically signed by Missael Hernandez DO> Cosigner Signature (if applicable): CC: Dr. Missael Hernandez DO; Dr. Shayna Malhotra MD~ Signed [facility] Work Phone: 1(822) 390-749605-07-2025 History and physical note [facility] Medical Records Department [address] [place] [address] H&P Exam - Hospitalist 10/09/242118 MR#: [id number] Acct: [id number] Name: VIDA NINA Rep #:[id number] : 1950 73 From: Missael Joiner DO PCP: Dr. Shayna Malhotra MD Status:ADM IN Location: 3 [id number] [facility] - General General Date of Admission: [...] is currently residing in assisted living at [facility] presents to [facility] ER complaining of worsening Leftheel pain [...] skin folds and extremely poor hygiene with CLEANER GREASER having social work consulted and patient felt [...] is expected to extend beyond 2 midnights. [facility] Medical History Obesity Anxiety Cancer Anxiety Diabetes [...] acetonide 0.1 % 1 applic topical Q12H SD N PRN Rash 09/20/21 Unknown History topical [...] (Auto) 72.1 H, Lymph % (Auto) 16.3 L,[place] % (Auto) 8.3, Eos % (Auto) 2.5, [...] Clarity Cloudy, Urine pH 5.0, Ur Specific [place] 1.020, Urine Protein 30 H, Urine Glucose [...] changes. Soft tissue swelling. Reading Location: [facility] Imaging Services [address] [place] [address] Extremity Lower without Contra MR#: [id number] Acct: [id number] Name: VIDA NINA Rep #: [id number] : 1950 F 73 From: Saul Sanchez MD PCP: Dr. Shayna Malhotra MD Status: ADM IN Study: Extremity Lower without Contra Date of Exam: 10/09/24 Exam# [id number] Ordering Dr: Missael Hernandez DO PROCEDURE: EXTREMITY [...] Hernandez at 2:20 a.m. 10/10/2024 Reading Location: [facility] CC: Dr. Missael Hernandez DO; Dr. Shayna Malhotra MD ~ Material Mixer: Signed Assessment & Plan Assessment/Plan (1) Acute cystitis with hematuria: (2) Neuropathic pain of foot: (3) Poor hygiene: (4) Unable to care for self: (5) Bipolar 1 disorder: (6) Morbid obesity with BMI of 45.0-49.9, adult: (7) DM2 (diabetes mellitus, type 2): QUALIFIERS: Diabetes mellitus complication status: with other specified complication Diabetes mellitus usp insulin use: with watermelon inspector use Qualified Code(s): E11.69 - Type 2 diabetes mellitus with other specified complication; Z79.4 - FCI (current) use of insulin PLAN: Plan 1. Acute Cystitis; with microscopic hematuria in the setting of known frequent UTIs - Admit to general medical floor. Continue empiric IV ceftriaxone and await culture and sensitivity data. Give acetaminophen as needed for psoi-qf-okxylfto (level 1-5/10) pain or fever. Give oxycodone [...] 75 minutes. Charges/Coding Visit Charges Inpatient E&M: 66789 Init Hosp L3 10/10/24 0653 Cosigner Signature (if applicable): CC: Dr. Missael Hernandez DO; Dr. Shayna Malhotra MD~ Signed [facility]05-07-2025 Radiology Diagnostic study note [facility] Imaging Services [address] [place], [place] [address] Extremity Lower without Contra MR#: [id number] Acct: [id number] Name: VIDA NINA Rep #: [id number] : 1950 F 73 From: Daniel Sanchez MD PCP: Dr. Shayna Malhotra MD Status: ADM IN Study:Extremity Lower without Contra Date of Exam: 10/09/24 Exam# [id number] Ordering Dr: Missael Piña DO PROCEDURE: EXTREMITY [...] Hernandez at 2:20 a.m. 10/10/2024 Reading Location: [id number] CC: Dr. Missael Hernandez DO; Dr. Shayna Malhotra MD ~ Material Mixer: Signed [facility]05-06-2025 Discharge summary Author Dany Richardson [facility] Note Date/Time October 09, 2024 9:22pm [facility] Medical Records Department [address] [place] [address] Emergency Department Summary 10/09/24 MR#: [id number] Acct: [id number] Name: VIDA NINA Rep #:[id number] : 1950 73 From: Dany Richardson MD PCP: Dr. Shayna Malhotra MD Status:REG ER Location: ED HPI History of Present Illness Chief Complaint: Lower Extremity Injury Narrative Narrative: 73-year-old female states that she had pins placed in her left foot approximately 15 years ago [place] after breaking her heel. [facility]. She states for the last 2 weeks she has been having increasing foot pain. She states that on Tuesday, probably of the last week, she had x-[facility] at the [facility]. She went and saw Dr. Shayna Malhotra on Tuesday, but he did not have the x-ray results. She states that she is having a lot of pain in her left heel that is worse with weightbearing and walking and palpation. She states that it feels as if she is having a baby out of her left heel. [facility] Medical History Obesity Anxiety Cancer Anxiety Diabetes [...] acetonide 0.1 % 1 applic topical Q12H SD N PRN Rash 09/20/21 Unknown History topical [...] nonspecific foot pain. She was given 1 [place] for analgesia here, and x- rays were [...] plan was to discharge her back to [facility], however I was approached by [...] 72.1 H Lymph % (Auto) 16.3 L [place] % (Auto) 8.3 Eos % (Auto) 2.5 [...] Clarity Cloudy Urine pH 5.0 Ur Specific [place] 1.020 Urine Protein 30 H Urine Glucose [...] self, UTI (urinary tract infection) Disposition Disposition: [facility] What to do if you have Problems For any increased pain, shortness of breath, bleeding, nausea or vomiting, chestpain, or any unexpected problems, contact your Primary Care Provider. Call [facility] ([phone]) or report to the closest Emergency Room. Call 911 if necessary. 10/09/242121 <Electronically signed by Dany Richardson MD> Cosigner Signature (if applicable): CC: Dr. Shayna Malhotra MD ~ Signed [facility] Work Phone: 1(383) 217-288805-06-2025 Discharge summary [facility] Medical Records Department [address] [place] [id number] Emergency Department Summary 10/09/24 MR#: [id number] Acct: [id number] Name: VIDA NINA Rep #:[id number] : 1950 73 From: Dany Richardson MD PCP: Dr. Shayna Malhotra MD Status:[facility] ER Location: ED HPI History of Present Illness Chief Complaint: Lower Extremity Injury Narrative Narrative: 73-year-old female states that she had pins placed in her left foot approximately 15 years ago [place] after breaking her heel. She is currentlyin [facility]. She states for the last 2 weeks she has been having increasing foot pain. She states that on Tuesday, probably of the last week, she had x-raysobtained at the [facility]. She went and saw Dr. Shayna Malhotra on Tuesday, but he did not have thex-ray results. She states that she is having a lot of pain in her left heel that is worse with weightbearing and walking and palpation. She states that it feels as if she is having a baby out of her left heel. [facility] Medical History Obesity Anxiety Cancer Anxiety Diabetes [...] acetonide 0.1 % 1 applic topical Q12H SD N PRN Rash 09/20/21 Unknown History topical [...] nonspecific foot pain. She was given 1 [place] for analgesia here, and x-rays were obtained of the left footin 3 views. On my independent interpretation of her x-rays, there are postsurgical changes including hardware,but no evidence of a periprosthetic fracture, no noted loosening of hardware. There are arthritic changes as well. I reviewed the radiology report which confirms my independent interpretation. Initially my plan was to discharge her back to [facility], however I was approached by [...] 72.1 H Lymph % (Auto) 16.3 L [place] % (Auto) 8.3 Eos % (Auto) 2.5 [...] Clarity Cloudy Urine pH 5.0 Ur Specific [place] 1.020 Urine Protein 30 H Urine Glucose [...] tract infection) Disposition Disposition: Acute Care Hospital [facility] What to do if you have Problems For any increased pain, shortness of breath, bleeding, nausea or vomiting, chestpain, or any unexpected problems, contact your Primary Care Provider. Call [facility] ([phone]) or report tothe closest Emergency Room. Call 911 if necessary. 10/09/242121 Cosigner Signature (if applicable): CC: Dr. Shayna Malhotra MD ~ Signed [facility]05-06-2025 Radiology Diagnostic study note [facility] Imaging Services [address] [place] [address] Foot min 3 Views MR#: [id number] Acct: [id number] Name: VIDA NINA Rep #: [id number] : 1950 F 73 From: Katarina Jiménez MD PCP: Dr. Shayna Malhotra MD Status: REG ER Study:Foot min 3 Views Date of Exam: 11/28 Exam# [id number] Ordering Dr: Dany Richardson MD EXAM: LEFT [...] Richardson MD; Dr. Shayna Malhotra MD ~ Material Mixer: Signed [facility]01-29-2025 Evaluation note* Diagnosis Onset Date Resolution [...] 2) chronic October 09, 2024 9: 56pm [facility] Work Phone: 1(285) 196-205404-29-2022 NoteHNO ID: [id number] Author: Jennifer Cuevas MD Service: ? Author Type: Physician Type: Progress Notes Filed: 12/01/2021 8:04 AM Note Text: Gynecologic Oncology [facility] Follow up visit Date of service: 10/02/2021 PROBLEM/CC: Vida Nina presents for a post-op visit. SURGICAL PATHOLOGY [[id number]] Collected: 09/07/21 1104 Order Status: Completed Specimen: Tissue from UTERUS, CERVIX, BILATERAL FALLOPIAN TUBES AND BILATERAL OVARIES Updated: 09/11/21 1319 Case Report -- Surgical Pathology Report ? Case: [id number] ? Authorizing Provider: ?Jennifer Cuevas MD ? [...] A11 and A16 were reviewed at the [facility] gynecologic pathology consensus conference via telepathology on 09/09/20[address] Lupe Younger and Andra Franco agree with the diagnosis of acute salpingitis. ? Laboratory Developed Test (LDT) Disclaimer: Performance characteristics of immunohistochemical, immunofluorescent and chromogenic in-situ hybridization tests have been determined by the performing laboratory within [facility]?s [facility]en [facility] Pathology and Laboratory Medicine [place] ([facility], [facility] or [facility]) in a manner consistent with CLIA [...] 1:00 PM EDT Gynecologic Oncology [facility] Follow up visit Date of service: 10/02/2021 PROBLEM/CC: Vida Nina presents for a post-op visit. SURGICAL PATHOLOGY [[id number]] Collected: 09/07/21 1104 Order Status: Completed Specimen: Tissue from UTERUS, CERVIX, BILATERAL FALLOPIAN TUBES AND BILATERAL OVARIES Updated: 09/11/21 1319 Case Report -- Surgical Pathology Report Case: [id number] Authorizing Provider: Jennifer Cuevas MD Collected: 09/07/2021 11:04 AM Ordering Location: [facility] Received: 09/07/2021 11:12 AM Pathologist: [...] A11 and A16 were reviewed at the [facility] gynecologic pathology consensus conference via telepathology on 09/09/20[address] Lupe Younger and Andra Franco agree with the diagnosis of acute salpingitis. Laboratory Developed Test (LDT) Disclaimer: Performance characteristics of immunohistochemical, immunofluorescent and chromogenic in-situ hybridization tests have been determined by the performing laboratory within [facility] s [facility] Pathology and Laboratory Medicine [place] ([facility], [facility] or [facility]) in a manner consistent with CLIA [...] fibrous ovarian parenchyma with no lesions identified. Studio Producer sections are submitted as follows: A1-anterior cervix [...] A 17-right ovary Gross examination performed at [facility], [address] [place] [address] CLIA#[id number] OLS September 08, 2021 10:33 AM Intraoperative [...] many years since she has seen a railroad design consultant, maybe > 10 years. Reports normal pap [...] Her incisions have healed well. Abdomen non-tender. Prison Librarian for exam: Shrerie RESULTS: 07/26/21: ULTRASOUND The uterus is anteverted [...] without Cont on 08-07-2021 Abdomen/Pelvis without Cont [facility] Imaging Services [address] [place] [address] Abdomen/Pelvis without Cont MR#: [id number] Acct: [id number] Name: VIDA NINA Rep #: [id number] : 1950 F 70 From: Power Lopez MD PCP: Dr. Shayna Malhotra MD Status: REG CLI Study: Abdomen/Pelvis without Cont Date of Exam: 09/25 Exam# [id number] Ordering Dr: Saad Villagomez MD STUDY: CT [...] Paper guidelines (Godoy-Parrish, et al. JACR 2017; 14(8):5312-1332) suggest no imaging follow-up is necessary. ACR White Paper guidelines (Godoy-Parrish, et al. JACR 2017; 14(8):6121-4449) suggest no imaging follow-up is necessary. Consider [...] diagnosis with patient and caregiver (Arianna from [facility]). Discussed recommendations for treatment including TLH-BSO, [...] deemed medically necessary. Reviewed prior records from [facility] and Dr. Villagomez (medical oncologist) office. Requested images from CT A/P and ultrasound to be uploaded for review. Noted elevated CA 125. Plan to proceed with surgery in September. Will need preoperative anesthesia appointment. Contact information for Jose Rafael Resendiz: nurse line [phone]; order desk clerk [phone]. Documentation from my notes of previous visit [...] arrange referral to radiation treatment center in [place], [place] five minutes from where she lives. [...] Past Histories independently gathered by the clinical intelligence support officer and the remaining scribed note accurately describes my personal service to the patient. documented in [facility]Green [facility]04-29-[facility] Nurse Note* Moriah Aldridge RN - 10/02/2021 12:50 PM EDT Patient arrived amb A&Ox4 in [facility] for post op visit. Patient admits to pain in abd and lower back resolved since surgery. Pt denies any new concerns, today. Pt here with Marguerite, friend. Enc and support provided. Moriah Aldridge RN documented in this encounterGreen Cross Hospital04-18-2022 Miscellaneous Notes* Telephone Encounter - Jeffrey Ferris - 09/21/2021 12:10 PM EDT Spoke to Nurse Bernadine from [facility] stated that the patient is in the hospital and she will call when the patient comes out. So 09/22/21 appt in this office with Dr. Cuevas has been cancelled. Jeffrey Ferris 09/21/21 documented in this encounterGreen Cross Hospital04-07-2022 Miscellaneous Notes* Telephone Encounter - Taniya Balderas APRN.MICHELLE - 09/10/2021 8:25 AM EDT Called [facility] left message on nurse line to call [...] to. meds that are susceptible are iv. intermediate can recheck urine if still + then would need to get ID involved verbal instructions per Dr julieth Balderas APRN.CERTIFIED WELDING INSPECTOR documented in this encounterGreen Cross Hospital04-06-2022 Miscellaneous Notes* Telephone Encounter - Summer Turcios RN - 09/09/2021 2:50 PM EDT Franklin from [facility] returned call to this RN. [...] confidential e-mail) Attempted to call Franklin at [facility] to review above message, no answer. Left message on voicemailto return call. Summer Turcios RN * Telephone Encounter - Summer Turcios RN - 09/09/2021 1:58 PM EDT Franklin, nursing care partner at [facility] called stated, "one of patient's lap [...] e-mail). Summer Turcios RN documented in this encounterGreen Cross Hospital04-05-2022 NoteHNO ID: [id number] Author: Sam Naidu DO Service: Gynecology Oncology [...] Date 09/07/21 07 - 09/08/21 0659 Shift [id number] 4182-8623 6379-2338 24 Hour Total PO 360 360 PO 360 360 IV 2241 324 4009 Volume (mL) (ceFAZolin 3 g in D5W 100 mL (ANCEF)) 100 100 Volume (mL) (NaCl 0.9% iv infusion) 500 500 Volume (mL) (lactated ringers iv infusion) 1300 1300 Volume (mL) (lactated ringers iv infusion) 300 300 Shift Total 0054 783 3246 Urine 1000 1000 Void (ml) 1000 1000 [...] 154 VTE RISK CATEGORY: SURGICAL HIGH RISK (MN,MN) Active VTE Medication Orders: Anticoagulant AND Antiplatelet Medications (From admission, onward) Start Dose Route Frequency Last Action Ordered Stop 09/08/21 0900 enoxaparin 40 mg injection (LOVENOX) (Surgical Risk Categories) 40 mg SUBCUTANEOUS EVERY 24 HOURS Ordered 09/07/211541 -- Active VTE Prophylaxis Orders: 09/07/21 1545 PNEUMATIC COMPRESSION STOCKINGS (MN,MN) 09/07/21 154 ACTIVITY - MOBILIZE PATIENT ([place], [place]) VTE Prophylaxis: VTE prophylaxis appropriate Assessment/Plan Vida Nina is a 70 year old year old female POD#1 s/p EUA, TLH-BSO for endometrial cancer #Postoperative care - VSSAF - VTE (more content not included)...[facility]04-04-2022 Note HNO ID: [id number] Author: Hieu Raymond APRN.FRETTED INSTRUMENT REPAIRER Service: Anesthesiology Author Type: Nurse Sports Book Board Attendant Type: Anesthesia Procedure Notes Filed: 09/07/2021 9:28 AM Note Text: ANESTHESIOLOGY PROCEDURE NOTE Airway General Information Procedure Start Time/Medication Administration: 09/07/2021 8:29 AM Patient location during procedure: OR Timeout Performed Pre-procedure: timeout performed Consent Obtained: Yes Patient identity confirmed: arm band Staffing FRETTED INSTRUMENT REPAIRER: Hieu Raymond APRN.FRETTED INSTRUMENT REPAIRER Performed by: ANURAG Indications and Patient Condition Preoxygenated: yes Patient position: sniffing, ramp and reverse Trendelenburg Manual In-Line Stabilization: No Difficult Mask: No Indications for airway management: anesthesia anesthesia circuit Method: modified rapid sequence Cricoid Pressure: Yes Airway Accessory: oral airway Final Airway Details Final airway type: endotracheal airway Final Endotracheal Airway: ETT Cuffed: yes Successful intubation technique: video laryngoscopy Devices used: [employer] Endotracheal tube insertion site: oral Blade: Osman [...] intubation: no Difficult airway SIGNATURE: Hieu Raymond APRN.FRETTED INSTRUMENT REPAIRER PATIENT NAME: Vida Nina DATE: September 07, 2021 TIME: 9:25 AM CSN: [id number] Light A.[facility]03-29-2022 Instructions * Patient Instructions* Naila Barrientos APRN.CERTIFIED WELDING INSPECTOR - 09/01/2021 3:11 PM EDT PATIENT PREOPERATIVE INSTRUCTIONS Your surgeon has scheduled for your procedure at this surgery center: Dr. Cuevas has scheduled you for your procedure at this surgery center [facility]: [phone], [address] [place], [place] [address] Enter the hospital through the main entrance and proceed directly to the Surgery Welcome Center. Asyou enter the Surgery Welcome Center and sign in with the dredge or barge shore hand, we may ask for your photo ID [...] If you are having surgery at the [facility] and [facility], please bring your glucometer Pain [...] surgery. - YOU MUST HAVE A RESPONSIBLE CARDIAC CARE NURSE TAKE YOU HOME. A SQL DATABASE PROGRAMMER, CAB OR UBER CARDIAC CARE NURSE CANNOT BE MADEA RESPONSIBLE CARDIAC CARE NURSE. - We recommend that a responsible person [...] COVID-19 positive. If visitors do not follow [facility] masking guidelines, caregivers can [facility] and restrict their visitation privileges. For support, contact Elizabeth at [phone] or [email or web address]. The visitor will be allowed [...] and will then instruct the visitor for miner pick directions Visitors who have tested positive for [...] Faster: A Guide of Mind Body Techniques ([place], [place];[employer]: Fourth Edition) 2011 Naila Barrientos APRN.CNP 09/01/21 documented in this encounterGreen Cross Hospital03-29-2022 History and physical note * Naila [...] with Dr. Cuevas. [facility] at [facility] Scheduled as an TBA Have you been in contact with someone with known coronavirus/Covid 19? no Have you had surgery or pre testing at [facility] in the past 3 years? no REVIEW [...] Negative for: AICD/PPM, chest pain, CHF, recent NH and open heart surgery. GI: Positive for: abdominal pain Negative for: nausea and vomiting. : No history of dysuria, frequency or incontinence, stones or chronic kidney disease. No difficulty urinating, nocturia > 1 time per night or hematuria. 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 [...] or any previous visit (from the past 52654 hour(s)). Assessment No problem-specific Assessment & Plan [...] slightly elevated. Treated with oral medications. 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 Patient given verbal and written preop instructions and voices comprehension and compliance. SIGNATURE: Naila Barrientos APRN.CNP PATIENT NAME: Vida Nina DATE: September 01, 2021 TIME: 2:53 PM PAGER/CONTACT #: documented in this encounterGreen Cross Hospital03-18-2022 NoteHNO ID: [id number] Author: Jennifer Cuevas MD Service: ? Author Type: Physician Type: Progress Notes Filed: 08/26/2021 1:21 PM Note Text: Gynecologic Oncology [facility] General Consult Date of service: 08/21/2021 PCP: [...] many years since she has seen a railroad design consultant, maybe > 10 years. 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 Behavioral Health Case Manager History ? 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 Age at Menarche: ? Age at First : ? Age at Menopause: ? Behavioral Health Case Manager History Comments: ? Sexual Activity: Not Asked; [...] [facility] NoteHNO ID: [id number] Author: Krunal Erazo MD Service: ? Author [...] many years since she has seen a railroad design consultant, maybe > 10 years. 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 Behavioral Health Case Manager History LMP: Postmenopausal Age at Menarche: Age at First : Age at Menopause: Behavioral Health Case Manager History Comments: Sexual Activity: Not Asked; No [...] external genitalia atrophic, normal Bartholin's glands, urethra, Micco's glands, no vulvar lesions, no cervical lesions, good vaginal support, normal appearing perineal body and perianal region, scant (more content not included)...[facility]* Diagnosis Pre-op testing- Primary Preoperative examination, unspecified Endometrial cancer (HCC) Malignant neoplasm of corpus uteri, except isthmus Mixed hyperlipidemia 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, with long-term current use of insulin (HCC) Primary hypertension Unspecified essential hypertension Endometrial cancer (HCC) Malignant neoplasm of corpus uteri, except isthmus documented in this encounter [facility] note* Diagnosis Onset Date Resolution Status Uterine mass acute Endometrial adenocarcinoma a cute Debility acute Pulmonary embolism acute [facility] Work Phone: Evaluation note* Diagnosis Onset Date Resolution Status Uterine mass acute Endometrial adenocarcinoma a cute Debility acute Pulmonary embolism acute Debility acute Elevated troponin I level ac yuhaaviatam Lactic acidosis acute DM2 (diabetes mellitus, type 2) chronic [facility] Work Phone: Evaluation note* Diagnosis Endometrial cancer (HCC)- Primary Malignant neoplasm of corpus uteri, except isthmus documented in this encounter [facility] note* Diagnosis Onset Date Resolution Status Debility acute Pulmonary embolism acute Debility acute DM2 (diabetes mellitus, type 2) chronic Elevated troponin I level re solved Lactic acidosis resolved [facility] Work Phone: Evaluation noteNo assessment information available [facility] Work Phone: Evaluation note* Diagnosis Onset Date Resolution Status Debility acute Endometrial adenocarcinoma a cute Former smoker acute History of seizures acute Pulmonary embolism acute Vitamin D deficiency acute Bipolar disorder chronic DM2 (diabetes mellitus, type 2) chronic Type 1 diabetes mellitus chr onic [facility] Work Phone: Evaluation note* Diagnosis Onset Date Resolution Status Debility acute Vitamin D deficiency acute Bipolar disorder chronic Depression chronic DM2 (diabetes mellitus, type 2) chronic [facility] Work Phone: [facility] Work Phone: [facility] Dis[facility] instructionsWPro[facility] Work Phone: Hospital Discharge instructions Additional [...] care physician for further outpatient evaluation and management.[facility] Work Phone: Reason for referral (narrative)No reason for referral information availableWProMedica [facility] Work Phone: Summary Purpose Family History [...] FoundDocuments on File Type Date Recorded 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 Studio Producer Expl anation Advance Directive(s) 09/07/2021 6:14 AM Advance Directive Response Recorded Date/ Time Living Will No September 20, 2021 7:30am Power of Pharmacy Clinical Specialist No September 20 7:30am Advance Directive Response Recorded Date/ Time Living Will No September 20, 2021 12:38pm Power of Pharmacy Clinical Specialist No September 20 12:38pm Advance Directive Response Recorded Date/ Time Name of Medical Power of Pharmacy Clinical Specialist TODD November 22, 2021 1:03pm Living Will Yes November 22, 2021 1:03pm Power of Pharmacy Clinical Specialist Yes November 22 1:03pm Advance Directive Response Recorded Date/ Time Name of Medical Power of Pharmacy Clinical Specialist Todd Nina November 22, 2021 5:55pm Living Will No November 22, 2021 5:55pm Power of Pharmacy Clinical Specialist Yes November 22 5:55pm Advance Directive Response Recorded Date/ Time Living Will No April 13 10:27am Power of Pharmacy Clinical Specialist Yes April 13, 2022 10:27am Advance Directive Response Recorded Date/ Time Living Will No April 13 11:27am Power of Pharmacy Clinical Specialist Yes April 13, 2022 11:27am Advance Directive Response Recorded Date/ Time Living Will No January 09, 2023 5:18pm Power of Pharmacy Clinical Specialist No January 09 5:18pm Advance Directive Response Recorded Date/ Time Living Will No January 09, 2023 4:18pm Power of Pharmacy Clinical Specialist No January 09 4:18pm Advance Directive Response Recorded Date/ Time Do you have a Healthcare Power of Pharmacy Clinical Specialist? Yes October 09, 2024 5:45pm Advance Directive Response Recorded Date/ Time Do you have a Healthcare Power of Pharmacy Clinical Specialist? No October 09, 2024 11:07pm Health Concerns [...] LABWORK LONG-TERM LABWORK DEBILITY/KAYLA DEBILITY/KAYLA DEBILITY/KAYLA DEBILITY/KAYLA Reason for [...] section and content) DATE CREATED AUTHOR 08/31/2021 [facility] DATE CREATED AUTHOR AUTHOR'S ORGANIZ ATION 12/01/2021 [facility] DATE CREATED AUTHOR AUTHOR'S ORGANIZ ATION 04/17/2025 [facility] Comments (unrecognize d section and content) In the event this informatio n is protected by the Federal Confidentiality of Alcohol and Drug Abuse Patient Records regulations: The Federal rules restrict any use of the information to criminally investigate or prosecute any alcohol or drug abuse patient.[facility] the event this information is protected by the Federal Confidentiality of Alcohol and Drug Abuse Patient Records regulations: The Federal rules restrict any use of the information to criminally investigate or prosecute any alcohol or drug abuse patient.[facility] HospitalIn the event this information is protected by the Federal Confidentiality of Alcohol and Drug Abuse Patient Records regulations: The Federal rules restrict any use of the information to criminally investigate or prosecute any alcohol or drug abuse patient.[facility] HospitalIn the event this information is protected by the Federal Confidentiality of Alcohol and Drug Abuse Patient Records regulations: The Federal rules restrict any use of the information to criminally investigate or prosecute any alcohol or drug abuse patient.[facility] HospitalIn the event this information is protected by the Federal Confidentiality of Alcohol and Drug Abuse Patient Records regulations: The Federal rules restrict any use of the information to criminally investigate or prosecute any alcohol or drug abuse patient.[facility] Reason for Visit (unrecogniz ed section [...] BE BASED ON THE PRIMARY CLINICAL RECORDS. [employer] provides no warranty or guarantee of the accuracy or completeness of information in this document.
[2025-05-09 08:41] LABS: Anion Gap 12 (5-15); BUN 24 mg/dL (4-19); BUN/Creat Ratio 20.5 RATIO (10-20); Calcium,Total 9.3 mg/dL (7.6-11.0); Carbon Dioxide 22.9 mmol/L (21.0-32.0); Chloride 103 mmol/L (98-108); Glucose 176 mg/dL (70-99); Potassium 4.9 mmol/L (3.3-5.1)
== END ==
LOC: OLS.SWAL 05:00
PROVIDERS: PCP Internal Medicine; Visit Provider Internal Medicine
DX: I10 Essential (primary) hypertension (principal); N17.9 Acute kidney failure, unspecified
CPT/HCPCS: 36415; 80048

== ENCOUNTER → 2025-05-20 05:00 | Outpatient (REF) | payer MEDICARE, MEDICAID, SELFPAY ==
--- OUTSIDE RECORDS SUMMARY | 2025-05-20 03:40 | XMS RPT_ITS | CCD ---
Author Organization [facility] Care Team Providers Care Judge Clerk Name Role Phone Sena Cox NP Unavailable Johnny Richardson Unavailable Unavailable Unavailable [facility] Shayna Malhotra Primary Care Provider Dr. Shayna Malhotra Referring Provider [phone] Saad Villagomez Attending Provider Dr. Tyler Crespo Emergency Provider [phone] Dr. Alok Abdul Admit Provider Dr. Alok Abdul Attending Provider Dr. Alok Abdul Other Provider Dr. Tyrell Page Attending Provider Dr. Tyrell Page Other Provider Dr. Marjorie Gutiérrez Admit Provider Dr. Marjorie Gutiérrez Attending Provider Dr. Marjorie Gutirérez Other Provider Dr. Harjeet Gr Attending Provider Dr. Shayna Malhotra Primary Care Provider Dr. Tanner Rodriguez Attending Provider [phone] Marjorie Gutiérrez Referring Provider Dr. Shayna Malhotra Primary Care Provider Dr. Shayna Malhotra Attending Provider [phone] Shayna Malhotra Primary Care Provider Dr. Shayna Malhotra Attending Provider Dr. Shayna Malhotra Primary Care Provider Dr. Shayna Malhotra Attending Provider Marya LEAL, Dr. Corral Primary Care Provider Marya LEAL, Dr. Corral Attending Provider Marya LEAL, Shayna Attending Provider Unavailabl e Marya LEAL, Shayna Referring Provider Unavailabl e Dylan LEAL, Dany Emergency Provider [phone] Hernandez DO, Dr. Canas Admit Provider Unavail able Hernandez DO, Dr. Canas Attending Provider Unav ailable Hernandez DO, Dr. Canas Other Provider Unavail able Camilo LEAL, Dr. Santillan Attending Provider Camilo LEAL, Dr. Santillan Other Provider Marya LEAL, Dr. Corral Primary Care Physician [phone] Genoveva LEAL, Dr. Servin Attending Physician Unavail [...] Allergy 08-12-19 06 Shortness of Breath, Anaphylaxis [facility] (20 sources) Contrast media; Translations: [red dye] Drug Allergy 02-10-20 16 [facility] (5 sources) Fish Drug Allergy 02-10-20 16 [facility] (20 sources) metFORMIN Drug Allergy 11-21-19 17 Diarrhea, GI Upset, Vomiting [facility] (20 sources) paliperidone Drug Allergy 11-21-19 17 Rash [facility] (14 sources) Penicillins Drug Allergy 07-15-19 06 [facility] (20 sources) Shellfish; Translations: [shellfish derived] Drug Intolerance 02-29-20 19 Diarrhea, Vomiting [facility] (15 sources) Sulfonamides (Antibiotic) Drug Allergy 07-15-19 06 [facility] (15 sources) Iodinated Contrast Media Drug Allergy 02-29-20 19 Rash [facility] (4 sources) Mold Extract Drug Allergy 09-08-19 Rash [facility] (20 sources) Ciprofloxacin; Translations: [ciprofloxacin HCl] Drug Allergy 08-12-19 22 Anaphylaxis [facility] (19 sources) red (food color); Translations: [red (food color)] Allergy to substance 09-21-19 Hives [facility] (1 source) Penicillins Drug Allergy 07-15-19 Rash [facility] (9 sources) Penicillins Allergy to substance 11-23-19 RASH AND ITCHING [facility] (9 sources) Sulfonamides (Antibiotic) Allergy to substance 11-23-19 RASH AND ITCHING [facility] (9 sources) Triiodobenzoic Acids Allergy to substance 11-23-19 Rash [facility] (1 source) Ciprofloxacin Drug Allergy 10-10-19 [facility] (1 source) metFORMIN Drug Allergy 10-10-19 [facility] (1 source) paliperidone Drug Allergy 10-10-19 [facility] (1 source) Penicillins Drug allergy (disorder) 10-10-19 [facility] (1 source) Sulfonamides (Antibiotic) Drug allergy (disorder) 10-10-19 [facility] (1 source) Iodinated Contrast Media Drug allergy (disorder) 10-10-19 [facility] Medications Current Medications Medication Drug Class(es) Dates Sig (Normalized) Sig (Original) acetaminophen 325 mg oral tablet (20 sources) Start: 09-07-2021 End: 09-21-2021 take 2 tablets by mouth every six hours acetaminophen (TYLENOL) 325 mg tablet Take 2 tablets by mouth every 6 hours for 14 days. 112 tablet 0 09/07/2021 09/21/2021 Active Start: 07-30-2021 [facility] Acetaminophen [...] D2 Compound Start: 09-20-2021 Start: 09-20-2021 take 19066 [IU] by m outh every other week Ergocalciferol (Vitamin D2) Active 83850 UNIT PO Q1September 19, 2021 11:00pm Take every 2 weeks on Mondays Start: 09-08-2017 End: 03-21-2020 Ergocalciferol (Vitamin D2) 50,000 unit capsule Discontinued 73245 U PO EVERY MONTH 10 September 08, [...] SOPN Use 18 units daily. INSULIN GLARGINE [id number] Sena Cox NP Comment on above: Inject [...] BLOOD (3 sources) Start: 10-26-2016 End: 01-26-2025 picsellTOUCH ULTRA BLUE STRP Check BG 4-5 times daily GLUCOSE BLOOD [id number] Sena Cox GOVERNMENT SALES MANAGER 3 ml insulin detemir 100 unt/ml pen [...] (3 sources) Start: 10-26-2016 ONETOUCH [place] [facility] to check blood glucose up to 4 times daily. LANCETS [id number] Sena Cox GOVERNMENT SALES MANAGER mag hydrox/aluminum hyd/simeth (ANTACID SUSPENSION ORAL) (5 [...] Active Comment on above: twice daily. nystatin 509575 unt/ml oral suspension (17 sources) Polyene Antifungal [...] November 23, 2021 11:00pm polyethylene glycol 3350 61446 mg powder for oral solution (9 sources) Osmotic Laxative Start: 09-08-2021 End: 10-08-2021 polyethylene glycol 3350 (MIRALAX, GLYCOLAX) 17 gram packet Take 1 Packet by mouth once daily. Dissolve dose in 4 - 8 ounces of liquid and take as directed. 30 Packet 0 09/08/2021 10/08/2021 Comment on above: Take 1 Packet by [facility] once daily. Dissolve dose in 4 [...] shows localized disease. 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, [address] Urine Cultureon 04-03-2025 URC Presumptive E. coli [place] Count >100,000 Presumptive E. coli: REACTION Ampicillin [...] TMP SMX Islt TRANG <=20 S Normal [facility] Comment on above: Performed By: #### L 500.4050, L506.1000, L501.9985, L100.0100 #### [facility] [address] [place], [address] Basic Metabolic Profile (BMP )on 04-01-2025 BUN/CRE 23.4 RATIO High 10-20 [facility] Comment on above: Performed By: #### L 501.080 #### [facility] [address] [place], [address] Calcium [Mass/Vol] 9.4 mg/dL Normal 7.6-11.0 [facility] Comment on above: Performed By: #### L 501.080 #### [facility] [address] [place], [address] Chloride [Moles/Vol] 102 mmol/L Normal 98-108 [facility] Comment on above: Performed By: #### L 501.080 #### [facility] [address] [place], [address] CO2 [Moles/Vol] 25.7 mmol/L Normal 21.0-32.0 [facility] Comment on above: Performed By: #### L 501.080 #### [facility] [address] [place], [address] Creatinine [Mass/Vol] 1.04 mg/dL Normal 0.70-1.20 [facility] Comment on above: Performed By: #### L 501.080 #### [facility] [address] [place], [address] GAP 10 Normal 5-15 [facility] Comment on above: Performed By: #### L 501.080 #### [facility] [address] [place], [address] GFR/1.73 sq M.predicted among non-blacks MDRD (S/P/Bld) [Vol rate/Area] 57 mL/min/{1.73_m2} Low >60 [facility] Comment on above: Result Comment: mL/m in/1.73m2 CKD-EPI Creatinine Equation (2020) Performed By: #### L 501.080 #### [facility] [address] [place], [address] Glucose [Mass/Vol] 214 mg/dL High 70-99 [facility] Comment on above: Performed By: #### L 501.080 #### [facility] [address] [place], [address] Potassium [Moles/Vol] 4.5 mmol/L Normal 3.3-5.1 [facility] Comment on above: Performed By: #### L 501.080 #### [facility] [address] [place], [address] Sodium [Moles/Vol] 138 mmol/L Normal 133-145 [facility] Comment on above: Performed By: #### L 501.080 #### [facility] [address] [place], [address] Urea nitrogen [Mass/Vol] 24 mg/dL High 4-19 [facility] Comment on above: Performed By: #### L 501.080 #### [facility] [address] [place], [address] CBC-Complete Blood Cnt No Di ffon 04-01-2025 Erythrocyte distribution width (RBC) [Ratio] 14.6 % Normal 11.6-14.6 [facility] Comment on above: Performed By: #### L 501.080 #### [facility] [address] [place], [address] Hematocrit (Bld) [Volume fraction] 34.6 % Low 37-47 [facility] Comment on above: Performed By: #### L 501.080 #### [facility] [address] [place], [address] Hemoglobin (Bld) [Mass/Vol] 11.6 g/dL Low 12.0-15.0 [facility] Comment on above: Performed By: #### L 501.080 #### [facility] [address] [place], [address] MCH (RBC) [Entitic mass] 30.4 pg Normal 27.0-32.0 [facility] Comment on above: Performed By: #### L 501.080 #### [facility] [address] [place], [address] MCHC (RBC) [Mass/Vol] 33.5 g/dL Normal 32-36 [facility] Comment on above: Performed By: #### L 501.080 #### [facility] [address] [place], [address] MCV (RBC) [Entitic vol] 90.6 fL Normal 81-99 [facility] Comment on above: Performed By: #### L 501.080 #### [facility] [address] [place], [address] Platelet mean volume (Bld) [Entitic vol] 11.0 fL Normal 6.2-12.0 [facility] Comment on above: Performed By: #### L 501.080 #### [facility] [address] [place], [address] Platelets (Bld) [#/Vol] 103 10*3/uL Low 150-450 [facility] Comment on above: Performed By: #### L 501.080 #### [facility] [address] [place], [address] RBC (Bld) [#/Vol] 3.82 10*6/uL Low 4.2-5.[address] [facility] Comment on above: Performed By: #### L 501.080 #### [facility] [address] [place], [address] RDW SD 48.3 fl High 35.1-43.9 [facility] Comment on above: Performed By: #### L 501.080 #### [facility] [address] [place], [address] WBC (Bld) [#/Vol] 3.6 10*3/uL Low 4.4-11.0 [facility] Comment on above: Performed By: #### L 501.080 #### [facility] [address] [place], [address] Magnesiumon 04-01-2025 Magnesium [Mass/Vol] 2.3 mg/dL High 1.5-2.2 [facility] Comment on above: Performed By: #### L 501.080 #### [facility] [address] [place], [address] Urinalysis, Completeon 04-01 BACTERIA 2+ /hpf Normal None Seen [facility] Comment on above: Order Comment: CLEAN CATCH Performed By: #### L 501.080 #### [facility] [address] [place], [address] EPI,SQUAMOUS 0-5 SEEN Normal 5-10 [facility] Comment on above: Order Comment: CLEAN CATCH Performed By: #### L 501.080 #### [facility] [address] [place], [address] WBC 10-25 SEEN Normal 0-5 [facility] Comment on above: Order Comment: CLEAN CATCH Performed By: #### L 501.080 #### [facility] [address] [place], [address] Mucus Ql (Urine sed) 0 SEEN Normal [facility] Comment on above: Order Comment: CLEAN CATCH Performed By: #### L 501.080 #### [facility] [address] [place], [address] RBC 0 SEEN Normal 0-5 [facility] Comment on above: Order Comment: CLEAN CATCH Performed By: #### L 501.080 #### [facility] [address] [place], [address] Basic Metabolic Profile (BMP )on 03-20-2025 BUN/CRE 20.6 RATIO High 03-25 [facility] Comment on above: Order Comment: 134 Performed By: #### L 500.4050, L506.1000, L501.9985, L100.0100 #### [facility] [address] [place], [address] Calcium [Mass/Vol] 9.7 mg/dL Normal 7.6-11.0 [facility] Comment on above: Order Comment: 134 Performed By: #### L 500.4050, L506.1000, L501.9985, L100.0100 #### [facility] [address] [place], [address] Chloride [Moles/Vol] 103 mmol/L Normal 98-108 [facility] Comment on above: Order Comment: 134 Performed By: #### L 500.4050, L506.1000, L501.9985, L100.0100 #### [facility] [address] [place], [address] CO2 [Moles/Vol] 21.4 mmol/L Normal 21.0-32.0 [facility] Comment on above: Order Comment: 134 Performed By: #### L 500.4050, L506.1000, L501.9985, L100.0100 #### [facility] [address] [place], [address] Creatinine [Mass/Vol] 1.15 mg/dL Normal 0.70-1.20 [facility] Comment on above: Order Comment: 134 Performed By: #### L 500.4050, L506.1000, L501.9985, L100.0100 #### [facility] [address] [place], [address] GAP 13 Normal 5-15 [facility] Comment on above: Order Comment: 134 Performed By: #### L 500.4050, L506.1000, L501.9985, L100.0100 #### [facility] [address] [place], [address] GFR/1.73 sq M.predicted among non-blacks MDRD (S/P/Bld) [Vol rate/Area] 51 mL/min/{1.73_m2} Low >60 [facility] Comment on above: Order Comment: 134 Result Comment: mL/m in/1.73m2 CKD-EPI Creatinine Equation (2020) Performed By: #### L 500.4050, L506.1000, L501.9985, L100.0100 #### [facility] [address] [place], [address] Glucose [Mass/Vol] 224 mg/dL High 70-99 [facility] Comment on above: Order Comment: 134 Performed By: #### L 500.4050, L506.1000, L501.9985, L100.0100 #### [facility] [address] [place], [address] Potassium [Moles/Vol] 4.7 mmol/L Normal 3.3-5.1 [facility] Comment on above: Order Comment: 134 Result Comment: Hemo lysis present, Results??could be affected. ?? Performed By: #### L 500.4050, L506.1000, L501.9985, L100.0100 #### [facility] [address] [place], [address] Sodium [Moles/Vol] 137 mmol/L Normal 133-145 [facility] Comment on above: Order Comment: 134 Performed By: #### L 500.4050, L506.1000, L501.9985, L100.0100 #### [facility] [address] [place], [address] Urea nitrogen [Mass/Vol] 24 mg/dL High 4-19 [facility] Comment on above: Order Comment: 134 Performed By: #### L 500.4050, L506.1000, L501.9985, L100.0100 #### [facility] [address] [place], [address] CBC-Complete Blood Cnt No Di ffon 03-20-2025 Erythrocyte distribution width (RBC) [Ratio] 14.8 % High 11.6-14.6 [facility] Comment on above: Order Comment: 134 Performed By: #### L 500.4050, L506.1000, L501.9985, L100.0100 #### [facility] [address] [place], [address] Hematocrit (Bld) [Volume fraction] 35.8 % Low 37-47 [facility] Comment on above: Order Comment: 134 Performed By: #### L 500.4050, L506.1000, L501.9985, L100.0100 #### [facility] [address] [place], [address] Hemoglobin (Bld) [Mass/Vol] 11.8 g/dL Low 12.0-15.0 [facility] Comment on above: Order Comment: 134 Performed By: #### L 500.4050, L506.1000, L501.9985, L100.0100 #### [facility] [address] [place], [address] MCH (RBC) [Entitic mass] 29.9 pg Normal 27.0-32.0 [facility] Comment on above: Order Comment: 134 Performed By: #### L 500.4050, L506.1000, L501.9985, L100.0100 #### [facility] [address] [place], [address] MCHC (RBC) [Mass/Vol] 33.0 g/dL Normal 32-36 [facility] Comment on above: Order Comment: 134 Performed By: #### L 500.4050, L506.1000, L501.9985, L100.0100 #### [facility] [address] [place], [address] MCV (RBC) [Entitic vol] 90.6 fL Normal 81-99 [facility] Comment on above: Order Comment: 134 Performed By: #### L 500.4050, L506.1000, L501.9985, L100.0100 #### [facility] [address] [place], [address] Platelet mean volume (Bld) [Entitic vol] 11.3 fL Normal 6.2-12.0 [facility] Comment on above: Order Comment: 134 Performed By: #### L 500.4050, L506.1000, L501.9985, L100.0100 #### [facility] [address] [place], [address] Platelets (Bld) [#/Vol] 103 10*3/uL Low 150-450 [facility] Comment on above: Order Comment: 134 Performed By: #### L 500.4050, L506.1000, L501.9985, L100.0100 #### [facility] [address] [place], [address] RBC (Bld) [#/Vol] 3.95 10*6/uL Low 4.2-5.[address] [facility] Comment on above: Order Comment: 134 Performed By: #### L 500.4050, L506.1000, L501.9985, L100.0100 #### [facility] [address] [place], [address] RDW SD 49.4 fl High 35.1-43.9 [facility] Comment on above: Order Comment: 134 Performed By: #### L 500.4050, L506.1000, L501.9985, L100.0100 #### [facility] [address] [place], [address] WBC (Bld) [#/Vol] 3.7 10*3/uL Low 4.4-11.0 [facility] Comment on above: Order Comment: 134 Performed By: #### L 500.4050, L506.1000, L501.9985, L100.0100 #### [facility] [address] [place], [address] Hemoglobin A1con 03-20-2025 HbA1c (Bld) [Mass fraction] 7.1 % High <=5.6 [facility] Comment on above: Order Comment: 134 Result Comment: Norm al < 5.7 % Prediabetic 5.7 - 6.4 % Diabetic >or= 6.5 % Please note range changes. Performed By: #### L 500.4050, L506.1000, L501.9985, L100.0100 #### [facility] [address] [place], [address] Pro- Brain NATRIURETIC PEPTI Oskar 03-20-2025 Natriuretic peptide B (Bld) [Mass/Vol] 133 pg/mL Normal <=900 [facility] Comment on above: Order Comment: 134 Result Comment: Hear t Failure Unlikely: < 300 pg/mL Heart Failure Likely < 50 Years: > 450 pg/mL 50-75 Years: > 900 pg/mL >75 Years: > 1800 pg/mL Performed By: #### L 500.4050, L506.1000, L501.9985, L100.0100 #### [facility] [address] [place], [address] Magnesiumon 01-23-2025 Magnesium [Mass/Vol] 2.1 mg/dL Normal 1.5-2.2 [facility] Comment on above: Order Comment: 134 Performed By: #### L 500.4050, L506.1000, L501.9985, L100.0100 #### [facility] [address] [place], [address] Anion gap in Serum or Plasma Ordered By: Malathi Tomas on 01-21-2025 Anion gap [Moles/Vol] 13 mmol/L -15 [facility] BUN/creatinine ratioOrdered By: Malathi Tomas on 01-21-2025 Urea nitrogen/Creatinine [Mass ratio] 23.4 mg/mg High - [facility] Basic Metabolic Profile (BMP )on 01-21-2025 BUN/CRE 23.4 RATIO High - [facility] Comment on above: Order Comment: 134 Performed By: #### L 500.4050, L506.1000, L501.9985, L100.0100 #### [facility] [address] [place], [address] Calcium [Mass/Vol] 9.2 mg/dL Normal 7.6-11.0 [facility] Comment on above: Order Comment: 134 Performed By: #### L 500.4050, L506.1000, L501.9985, L100.0100 #### [facility] [address] [place], [address] Chloride [Moles/Vol] 103 mmol/L Normal 98-108 [facility] Comment on above: Order Comment: 134 Performed By: #### L 500.4050, L506.1000, L501.9985, L100.0100 #### [facility] [address] [place], [address] CO2 [Moles/Vol] 20.8 mmol/L Low 21.0-32.0 [facility] Comment on above: Order Comment: 134 Performed By: #### L 500.4050, L506.1000, L501.9985, L100.0100 #### [facility] [address] [place], [address] Creatinine [Mass/Vol] 1.01 mg/dL Normal 0.70-1.20 [facility] Comment on above: Order Comment: 134 Performed By: #### L 500.4050, L506.1000, L501.9985, L100.0100 #### [facility] [address] [place], [address] GAP 13 Normal 5-15 [facility] Comment on above: Order Comment: 134 Performed By: #### L 500.4050, L506.1000, L501.9985, L100.0100 #### [facility] [address] [place], [address] GFR/1.73 sq M.predicted among non-blacks MDRD (S/P/Bld) [Vol rate/Area] 59 mL/min/{1.73_m2} Low >60 [facility] Comment on above: Order Comment: 134 Result Comment: mL/m in/1.73m2 CKD-EPI Creatinine Equation (2020) Performed By: #### L 500.4050, L506.1000, L501.9985, L100.0100 #### [facility] [address] [place], [address] Glucose [Mass/Vol] 164 mg/dL High 70-99 [facility] Comment on above: Order Comment: 134 Performed By: #### L 500.4050, L506.1000, L501.9985, L100.0100 #### [facility] [address] [place], [address] Potassium [Moles/Vol] 4.8 mmol/L Normal 3.3-5.1 [facility] Comment on above: Order Comment: 134 Performed By: #### L 500.4050, L506.1000, L501.9985, L100.0100 #### [facility] [address] [place] [place], [address] Sodium [Moles/Vol] 137 mmol/L Normal 133-145 [facility] Comment on above: Order Comment: 134 Performed By: #### L 500.4050, L506.1000, L501.9985, L100.0100 #### [facility] [address] [place], [address] Urea nitrogen [Mass/Vol] 24 mg/dL High 4-19 [facility] Comment on above: Order Comment: 134 Performed By: #### L 500.4050, L506.1000, L501.9985, L100.0100 #### [facility] [address] [place], [address] Carbon dioxide, total [Moles /volume] in Central venous bloodOrdered By: Malathi Tomas on 01-21-2025 CO2 [Moles/Vol] 20.8 mmol/L Low 21.0-32.0 [facility] Chloride assayOrdered By: Tao Tomas on 01-21-2025 Chloride [Moles/Vol] 103 mmol/L 98-108 [facility] Glomerular filtration rate ( GFR) estimation/1.73 sq m using serum, plasma, or whole bOrdered By: Malathi Tomas on 01-21-2025 GFR/1.73 sq M.predicted among non-blacks MDRD (S/P/Bld) [Vol rate/Area] 59 mL/min/{1.73_m2} Low >60 [facility] Comment on above: mL/min/1.73m2 CKD-EP I Creatinine Equation (2020) Magnesium measurement (mass/ volume)Ordered By: Malathi Tomas on 01-21-2025 Magnesium (Unsp spec) [Mass/Vol] 2.1 mg/dL 1.5-2.2 [facility] Natriuretic peptide.B prohor magi N-Terminal [Mass/volume] in Serum or PlasmaOrdered By: Malathi Tomas on 01-21-2025 Natriuretic peptide.B prohormone N-Terminal [Mass/Vol] 260 pg/mL <900 [facility] Comment on above: Heart Failure Unlike ly: < 300 pg/mLHeart Failure Likely< 50 Years: > 450 pg/mL50-75 Years: > 900 pg/mL>75 Years: > 1800 pg/mL Potassium measurement (mass/ volume)Ordered By: Malathi Tomas on 01-21-2025 Potassium (Unsp spec) [Mass/Vol] 4.8 mmol/L 3.3-5.1 [facility] Pro- Brain NATRIURETIC PEPTI Oskar 01-21-2025 Natriuretic peptide B (Bld) [Mass/Vol] 260 pg/mL Normal <=900 [facility] Comment on above: Order Comment: 134 Result Comment: Hear t Failure Unlikely: < 300 pg/mL Heart Failure Likely < 50 Years: > 450 pg/mL 50-75 Years: > 900 pg/mL >75 Years: > 1800 pg/mL Performed By: #### L 500.4050, L506.1000, L501.9985, L100.0100 #### [facility] [place], [address] Serum creatinine measurement (mass/volume)Ordered By: Malathi Tomas on 01-21-2025 Creatinine [Mass/Vol] 1.01 mg/dL 0.70-1.20 [facility] Serum glucose measurement (m ass/volume)Ordered By: Malathi Tomas on 01-21-2025 Glucose [Mass/Vol] 164 mg/dL High 70-99 [facility] Serum or plasma calcium kim urement (mass/volume)Ordered By: Malathi Tomas on 01-21-2025 Calcium [Mass/Vol] 9.2 mg/dL 7.6-11.0 [facility] Serum or plasma urea nitroge n measurement (mass/volume)Ordered By: Malathi Tomas on 01-21-2025 Urea nitrogen [Mass/Vol] 24 mg/dL High 4-19 [facility] Sodium levelOrdered By: Marie Tomas on 01-21-2025 Sodium [Moles/Vol] 137 mmol/L 133-145 [facility] Anion gap in Serum or Plasma Ordered By: Malathi Tomas on 12-04-2024 Anion gap [Moles/Vol] 10 mmol/L 5-15 [facility] BUN/creatinine ratioOrdered By: Malathi Tomas on 12-04-2024 Urea nitrogen/Creatinine [Mass ratio] 22.2 mg/mg High - [facility] Basic Metabolic Profile (BMP )on 12-04-2024 BUN/CRE 22.2 RATIO High - [facility] Comment on above: Order Comment: N Performed By: #### L 506.0200 #### [facility] [address] [place], [address] Calcium [Mass/Vol] 9.4 mg/dL Normal 7.6-11.0 [facility] Comment on above: Order Comment: N Performed By: #### L 506.0200 #### [facility] [address] [place], [address] Chloride [Moles/Vol] 103 mmol/L Normal 98-108 [facility] Comment on above: Order Comment: N Performed By: #### L 506.0200 #### [facility] [address] [place], [address] CO2 [Moles/Vol] 23.5 mmol/L Normal 21.0-32.0 [facility] Comment on above: Order Comment: N Performed By: #### L 506.0200 #### [facility] [address] [place], [address] Creatinine [Mass/Vol] 1.13 mg/dL Normal 0.70-1.20 [facility] Comment on above: Order Comment: N Performed By: #### L 506.0200 #### [facility] [address] [place], [address] GAP 10 Normal 5-15 [facility] Comment on above: Order Comment: N Performed By: #### L 506.0200 #### [facility] [address] [place], [address] GFR/1.73 sq M.predicted among non-blacks MDRD (S/P/Bld) [Vol rate/Area] 52 mL/min/{1.73_m2} Low >60 [facility] Comment on above: Order Comment: N Result Comment: mL/m in/1.73m2 CKD-EPI Creatinine Equation (2020) Performed By: #### L 506.0200 #### [facility] [address] [place], [address] Glucose [Mass/Vol] 83 mg/dL Normal 70-99 [facility] Comment on above: Order Comment: N Performed By: #### L 506.0200 #### [facility] [address] [place], [address] Potassium [Moles/Vol] 5.1 mmol/L Normal 3.3-5.1 [facility] Comment on above: Order Comment: N Result Comment: Hemo lysis present, Results??could be affected. ?? Performed By: #### L 506.0200 #### [facility] [address] [place], [address] Sodium [Moles/Vol] 136 mmol/L Normal 133-145 [facility] Comment on above: Order Comment: N Performed By: #### L 506.0200 #### [facility] [address] [place], [address] Urea nitrogen [Mass/Vol] 25 mg/dL High 4-19 [facility] Comment on above: Order Comment: N Performed By: #### L 506.0200 #### [facility] [address] [place], [address] CBC-Complete Blood Cnt No Di ffon 12-04-2024 Erythrocyte distribution width (RBC) [Ratio] 16.2 % High 11.6-14.6 [facility] Comment on above: Order Comment: N Performed By: #### L 506.0200 #### [facility] [address] [place], [address] Hematocrit (Bld) [Volume fraction] 33.8 % Low 37-47 [facility] Comment on above: Order Comment: N Performed By: #### L 506.0200 #### [facility] [address] [place], [address] Hemoglobin (Bld) [Mass/Vol] 11.2 g/dL Low 12.0-15.0 [facility] Comment on above: Order Comment: N Performed By: #### L 506.0200 #### [facility] [address] [place], [address] MCH (RBC) [Entitic mass] 29.3 pg Normal 27.0-32.0 [facility] Comment on above: Order Comment: N Performed By: #### L 506.0200 #### [facility] [address] [place], [address] MCHC (RBC) [Mass/Vol] 33.1 g/dL Normal 32-36 [facility] Comment on above: Order Comment: N Performed By: #### L 506.0200 #### [facility] [address] [place], [address] MCV (RBC) [Entitic vol] 88.5 fL Normal 81-99 [facility] Comment on above: Order Comment: N Performed By: #### L 506.0200 #### [facility] [address] [place], [address] Platelet mean volume (Bld) [Entitic vol] 11.2 fL Normal 6.2-12.0 [facility] Comment on above: Order Comment: N Performed By: #### L 506.0200 #### [facility] [address] [place], [address] Platelets (Bld) [#/Vol] 119 10*3/uL Low 150-450 [facility] Comment on above: Order Comment: N Performed By: #### L 506.0200 #### [facility] [address] [place], [address] RBC (Bld) [#/Vol] 3.82 10*6/uL Low 4.2-5.[address] [facility] Comment on above: Order Comment: N Performed By: #### L 506.0200 #### [facility] [address] [place], [address] RDW SD 52.9 fl High 35.1-43.9 [facility] Comment on above: Order Comment: N Performed By: #### L 506.0200 #### [facility] [address] [place], [address] WBC (Bld) [#/Vol] 3.1 10*3/uL Low 4.4-11.0 [facility] Comment on above: Order Comment: N Performed By: #### L 506.0200 #### [facility] [address] [place], [address] Carbon dioxide, total [Moles /volume] in Central venous bloodOrdered By: Malathi Tomas on 12-04-2024 CO2 [Moles/Vol] 23.5 mmol/L 21.0-32.0 [facility] Chloride assayOrdered By: Tao Tomas on 12-04-2024 Chloride [Moles/Vol] 103 mmol/L 98-108 [facility] Erythrocyte distribution wid th ratioOrdered By: Malathi Tomas on 12-04-2024 Erythrocyte distribution width (RBC) [Ratio] 16.2 % High 11.6-14.6 [facility] Erythrocyte distribution wid th standard deviationOrdered By: Malathi Tomas on 12-04-2024 Erythrocyte distribution width (RBC) [Ratio] 52.9 fl High 35.1-43.9 [facility] Glomerular filtration rate ( GFR) estimation/1.73 sq m using serum, plasma, or whole bOrdered By: Malathi Tomas on 12-04-2024 GFR/1.73 sq M.predicted among non-blacks MDRD (S/P/Bld) [Vol rate/Area] 52 mL/min/{1.73_m2} Low >60 [facility] Comment on above: mL/min/1.73m2 CKD-EP I Creatinine Equation (2020) Hematocrit Auto (Bld) [Volum e fraction]Ordered By: Malathi Tomas on 12-04-2024 Hematocrit (Bld) [Volume fraction] 33.8 % Low 37-47 [facility] Hemoglobin measurementOrdere d By: Malathi Tomas on 12-04-2024 Hemoglobin (Bld) [Mass/Vol] 11.2 g/dL Low 12.0-15.0 [facility] MCV (mean corpuscular volume ) determinationOrdered By: Malathi Tomas on 12-04-2024 MCV (RBC) [Entitic vol] 88.5 fL 81-99 [facility] Magnesiumon 12-04-2024 Magnesium [Mass/Vol] 2.3 mg/dL High 1.5-2.2 [facility] Comment on above: Order Comment: N Performed By: #### L 506.0200 #### [facility] [address] [place], [place] [address], [id number] Magnesium measurement (mass/ volume)Ordered By: Malathi Tomas on 12-04-2024 Magnesium (Unsp spec) [Mass/Vol] 2.3 mg/dL High 1.5-2.2 [facility] Mean corpuscular hemoglobin (MCH) determinationOrdered By: Malathi Tomas on 12-04-2024 MCH (RBC) [Entitic mass] 29.3 pg 27.0-32.0 [facility] Mean corpuscular hemoglobin concentration (MCHC) determinationOrdered By: Malathi Tomas on 12-04-2024 MCHC (RBC) [Mass/Vol] 33.1 g/dL 32-36 [facility] Mean platelet volume determi nationOrdered By: Malathi Tomas on 12-04-2024 Platelet mean volume (Bld) [Entitic vol] 11.2 fL 6.2-12.0 [facility] Platelet countOrdered By: Tao Tomas on 12-04-2024 Platelets (Bld) [#/Vol] 119 10*3/uL Low 150-450 [facility] Potassium measurement (mass/ volume)Ordered By: Malathi Tomas on 12-04-2024 Potassium (Unsp spec) [Mass/Vol] 5.1 mmol/L 3.3-5.1 [facility] Comment on above: Hemolysis present, R esults could be affected. RBC Auto (Bld) [#/Vol]Ordere d By: Malathi Tomas on 12-04-2024 RBC (Bld) [#/Vol] 3.82 10*6/uL Low 4.2-5.[address] [facility] Serum creatinine measurement (mass/volume)Ordered By: Malathi Tomas on 12-04-2024 Creatinine [Mass/Vol] 1.13 mg/dL 0.70-1.20 [facility] Serum glucose measurement (m ass/volume)Ordered By: Malathi Tomas on 12-04-2024 Glucose [Mass/Vol] 83 mg/dL 70-99 [facility] Serum or plasma calcium kim urement (mass/volume)Ordered By: Malathi Tomas on 12-04-2024 Calcium [Mass/Vol] 9.4 mg/dL 7.6-11.0 [facility] Serum or plasma urea nitroge n measurement (mass/volume)Ordered By: Malathi Tomas on 12-04-2024 Urea nitrogen [Mass/Vol] 25 mg/dL High 4-19 [facility] Sodium levelOrdered By: Marie Tomas on 12-04-2024 Sodium [Moles/Vol] 136 mmol/L 133-145 [facility] White blood cell (WBC) count Ordered By: Malathi Tomas on 12-04-2024 WBC (Bld) [#/Vol] 3.1 10*3/uL Low 4.4-11.0 [facility] Anion gap in Serum or Plasma Ordered By: Malathi Tomas on 11-26-2024 Anion gap [Moles/Vol] 12 mmol/L 5-15 [facility] BUN/creatinine ratioOrdered By: Malathi Tomas on 11-26-2024 Urea nitrogen/Creatinine [Mass ratio] 19.5 mg/mg - [facility] Basic Metabolic Profile (BMP )on 11-26-2024 BUN/CRE 19.5 RATIO Normal - [facility] Comment on above: Order Comment: 134 Performed By: #### L 500.4050, L506.1000, L501.9985, L100.0100 #### [facility] [address] [place], [address] Calcium [Mass/Vol] 9.3 mg/dL Normal 7.6-11.0 [facility] Comment on above: Order Comment: 134 Performed By: #### L 500.4050, L506.1000, L501.9985, L100.0100 #### [facility] [address] [place], [address] Chloride [Moles/Vol] 106 mmol/L Normal 98-108 [facility] Comment on above: Order Comment: 134 Performed By: #### L 500.4050, L506.1000, L501.9985, L100.0100 #### [facility] [address] [place], [address] CO2 [Moles/Vol] 22.9 mmol/L Normal 21.0-32.0 [facility] Comment on above: Order Comment: 134 Performed By: #### L 500.4050, L506.1000, L501.9985, L100.0100 #### [facility] [address] [place], [address] Creatinine [Mass/Vol] 0.95 mg/dL Normal 0.70-1.20 [facility] Comment on above: Order Comment: 134 Performed By: #### L 500.4050, L506.1000, L501.9985, L100.0100 #### [facility] [address] [place], [address] GAP 12 Normal 5-15 [facility] Comment on above: Order Comment: 134 Performed By: #### L 500.4050, L506.1000, L501.9985, L100.0100 #### [facility] [address] [place], [address] GFR/1.73 sq M.predicted among non-blacks MDRD (S/P/Bld) [Vol rate/Area] 64 mL/min/{1.73_m2} Normal >60 [facility] Comment on above: Order Comment: 134 Result Comment: mL/m in/1.73m2 CKD-EPI Creatinine Equation (2020) Performed By: #### L 500.4050, L506.1000, L501.9985, L100.0100 #### [facility] [address] [place], [address] Glucose [Mass/Vol] 89 mg/dL Normal 70-99 [facility] Comment on above: Order Comment: 134 Performed By: #### L 500.4050, L506.1000, L501.9985, L100.0100 #### [facility] [address] [place], [address] Potassium [Moles/Vol] 4.5 mmol/L Normal 3.3-5.1 [facility] Comment on above: Order Comment: 134 Performed By: #### L 500.4050, L506.1000, L501.9985, L100.0100 #### [facility] [address] [place], [address] Sodium [Moles/Vol] 140 mmol/L Normal 133-145 [facility] Comment on above: Order Comment: 134 Performed By: #### L 500.4050, L506.1000, L501.9985, L100.0100 #### [facility] [address] [place], [address] Urea nitrogen [Mass/Vol] 18 mg/dL Normal 4-19 [facility] Comment on above: Order Comment: 134 Performed By: #### L 500.4050, L506.1000, L501.9985, L100.0100 #### [facility] [address] [place], [address] Carbon dioxide, total [Moles /volume] in Central venous bloodOrdered By: Malathi Tomas on 11-26-2024 CO2 [Moles/Vol] 22.9 mmol/L 21.0-32.0 [facility] Chloride assayOrdered By: Tao Tomas on 11-26-2024 Chloride [Moles/Vol] 106 mmol/L 98-108 [facility] Glomerular filtration rate ( GFR) estimation/1.73 sq m using serum, plasma, or whole bOrdered By: Malathi Tomas on 11-26-2024 GFR/1.73 sq M.predicted among non-blacks MDRD (S/P/Bld) [Vol rate/Area] 64 mL/min/{1.73_m2} >60 [facility] Comment on above: mL/min/1.73m2 CKD-EP I Creatinine Equation (2020) Magnesiumon 11-26-2024 Magnesium [Mass/Vol] 2.2 mg/dL Normal 1.5-2.2 [facility] Comment on above: Order Comment: 134 Performed By: #### L 500.4050, L506.1000, L501.9985, L100.0100 #### [facility] [address] [place], [address] Magnesium measurement (mass/ volume)Ordered By: Malathi Tomas on 11-26-2024 Magnesium (Unsp spec) [Mass/Vol] 2.2 mg/dL 1.5-2.2 [facility] Potassium measurement (mass/ volume)Ordered By: Malathi Tomas on 11-26-2024 Potassium (Unsp spec) [Mass/Vol] 4.5 mmol/L 3.3-5.1 [facility] Serum creatinine measurement (mass/volume)Ordered By: Malathi Tomas on 11-26-2024 Creatinine [Mass/Vol] 0.95 mg/dL 0.70-1.20 [facility] Serum glucose measurement (m ass/volume)Ordered By: Malathi Tomas on 11-26-2024 Glucose [Mass/Vol] 89 mg/dL 70-99 [facility] Serum or plasma calcium kim urement (mass/volume)Ordered By: Malathi Tomas on 11-26-2024 Calcium [Mass/Vol] 9.3 mg/dL 7.6-11.0 [facility] Serum or plasma urea nitroge n measurement (mass/volume)Ordered By: Malathi Tomas on 11-26-2024 Urea nitrogen [Mass/Vol] 18 mg/dL 4-19 [facility] Sodium levelOrdered By: Marie Tomas on 11-26-2024 Sodium [Moles/Vol] 140 mmol/L 133-145 [facility] Basic Metabolic Profile (BMP )on 11-07-2024 BUN/CRE 19.5 RATIO Normal 10-20 [facility] Comment on above: Order Comment: 134 Performed By: #### L 500.4050, L506.1000, L501.9985, L100.0100 #### [facility] [address] [place], [address] Calcium [Mass/Vol] 9.0 mg/dL Normal 7.6-11.0 [facility] Comment on above: Order Comment: 134 Performed By: #### L 500.4050, L506.1000, L501.9985, L100.0100 #### [facility] [address] [place], [address] Chloride [Moles/Vol] 103 mmol/L Normal 98-108 [facility] Comment on above: Order Comment: 134 Performed By: #### L 500.4050, L506.1000, L501.9985, L100.0100 #### [facility] [address] [place], [address] CO2 [Moles/Vol] 25.5 mmol/L Normal 21.0-32.0 [facility] Comment on above: Order Comment: 134 Performed By: #### L 500.4050, L506.1000, L501.9985, L100.0100 #### [facility] [address] [place], [address] Creatinine [Mass/Vol] 0.82 mg/dL Normal 0.70-1.20 [facility] Comment on above: Order Comment: 134 Performed By: #### L 500.4050, L506.1000, L501.9985, L100.0100 #### [facility] [address] [place], [address] GAP 10 Normal 5-15 [facility] Comment on above: Order Comment: 134 Performed By: #### L 500.4050, L506.1000, L501.9985, L100.0100 #### [facility] [address] [place], [address] GFR/1.73 sq M.predicted among non-blacks MDRD (S/P/Bld) [Vol rate/Area] 76 mL/min/{1.73_m2} Normal >60 [facility] Comment on above: Order Comment: 134 Result Comment: mL/m in/1.73m2 CKD-EPI Creatinine Equation (2020) Performed By: #### L 500.4050, L506.1000, L501.9985, L100.0100 #### [facility] [address] [place], [address] Glucose [Mass/Vol] 79 mg/dL Normal 70-99 [facility] Comment on above: Order Comment: 134 Performed By: #### L 500.4050, L506.1000, L501.9985, L100.0100 #### [facility] [address] [place], [address] Potassium [Moles/Vol] 4.1 mmol/L Normal 3.3-5.1 [facility] Comment on above: Order Comment: 134 Performed By: #### L 500.4050, L506.1000, L501.9985, L100.0100 #### [facility] [address] [place], [address] Sodium [Moles/Vol] 139 mmol/L Normal 133-145 [facility] Comment on above: Order Comment: 134 Performed By: #### L 500.4050, L506.1000, L501.9985, L100.0100 #### [facility] [address] [place], [address] Urea nitrogen [Mass/Vol] 16 mg/dL Normal 4-19 [facility] Comment on above: Order Comment: 134 Performed By: #### L 500.4050, L506.1000, L501.9985, L100.0100 #### [facility] [address] [place], [address] CBC W/Diff, Automatedon 06-0 4-2025 Absolute Lymph 1.04 X10 3/uL Normal 0.83-4.51 [facility] Comment on above: Order Comment: 134 Performed By: #### L 500.4050, L506.1000, L501.9985, L100.0100 #### [facility] [address] [place], [address] Absolute Neut 2.2 X10 3/uL Normal 2.0-7.7 [facility] Comment on above: Order Comment: 134 Performed By: #### L 500.4050, L506.1000, L501.9985, L100.0100 #### [facility] [address] [place], [address] Basophils/100 WBC (Bld) 0.8 % Normal 0-1 [facility] Comment on above: Order Comment: 134 Performed By: #### L 500.4050, L506.1000, L501.9985, L100.0100 #### [facility] [address] [place], [address] Eosinophils/100 WBC (Bld) 3.2 % Normal 0-5 [facility] Comment on above: Order Comment: 134 Performed By: #### L 500.4050, L506.1000, L501.9985, L100.0100 #### [facility] [address] [place], [address] Erythrocyte distribution width (RBC) [Ratio] 15.9 % High 11.6-14.6 [facility] Comment on above: Order Comment: 134 Performed By: #### L 500.4050, L506.1000, L501.9985, L100.0100 #### [facility] [address] [place], [address] Hematocrit (Bld) [Volume fraction] 34.4 % Low 37-47 [facility] Comment on above: Order Comment: 134 Performed By: #### L 500.4050, L506.1000, L501.9985, L100.0100 #### [facility] [address] [place], [address] Hemoglobin (Bld) [Mass/Vol] 11.1 g/dL Low 12.0-15.0 [facility] Comment on above: Order Comment: 134 Performed By: #### L 500.4050, L506.1000, L501.9985, L100.0100 #### [facility] [address] [place], [address] IG% 0.500 Normal 0.0-0.9 [facility] Comment on above: Order Comment: 134 Result Comment: IG% - Immature Granulocytes (promyelocytes, myelocytes and metamyelocytes) > 1% indicates that a LEFT SHIFT is Present. Performed By: #### L 500.4050, L506.1000, L501.9985, L100.0100 #### [facility] [address] [place], [address] Lymphocytes/100 WBC (Bld) 27.4 % Normal 19-41 [facility] Comment on above: Order Comment: 134 Performed By: #### L 500.4050, L506.1000, L501.9985, L100.0100 #### [facility] [address] [place], [address] MCH (RBC) [Entitic mass] 28.3 pg Normal 27.0-32.0 [facility] Comment on above: Order Comment: 134 Performed By: #### L 500.4050, L506.1000, L501.9985, L100.0100 #### [facility] [address] [place], [address] MCHC (RBC) [Mass/Vol] 32.3 g/dL Normal 32-36 [facility] Comment on above: Order Comment: 134 Performed By: #### L 500.4050, L506.1000, L501.9985, L100.0100 #### [facility] [address] [place], [address] MCV (RBC) [Entitic vol] 87.8 fL Normal 81-99 [facility] Comment on above: Order Comment: 134 Performed By: #### L 500.4050, L506.1000, L501.9985, L100.0100 #### [facility] [address] [place], [address] Monocytes/100 WBC (Bld) 9.7 % Normal 0-10 [facility] Comment on above: Order Comment: 134 Performed By: #### L 500.4050, L506.1000, L501.9985, L100.0100 #### [facility] [address] [place], [address] Neutrophils/100 WBC (Bld) 58.4 % Normal 47-70 [facility] Comment on above: Order Comment: 134 Performed By: #### L 500.4050, L506.1000, L501.9985, L100.0100 #### [facility] [address] [place], [address] Nucleated RBC (Bld) [#/Vol] 0 10*3/uL Normal 0-5 [facility] Comment on above: Order Comment: 134 Performed By: #### L 500.4050, L506.1000, L501.9985, L100.0100 #### [facility] [address] [place], [address] Platelet mean volume (Bld) [Entitic vol] 10.7 fL Normal 6.2-12.0 [facility] Comment on above: Order Comment: 134 Performed By: #### L 500.4050, L506.1000, L501.9985, L100.0100 #### [facility] [address] [place], [address] Platelets (Bld) [#/Vol] 122 10*3/uL Low 150-450 [facility] Comment on above: Order Comment: 134 Performed By: #### L 500.4050, L506.1000, L501.9985, L100.0100 #### [facility] [address] [place], [address] RBC (Bld) [#/Vol] 3.92 10*6/uL Low 4.2-5.[address] [facility] Comment on above: Order Comment: 134 Performed By: #### L 500.4050, L506.1000, L501.9985, L100.0100 #### [facility] [address] [place], [address] RDW SD 51.3 fl High 35.1-43.9 [facility] Comment on above: Order Comment: 134 Performed By: #### L 500.4050, L506.1000, L501.9985, L100.0100 #### [facility] [address] [place], [address] WBC (Bld) [#/Vol] 3.8 10*3/uL Low 4.4-11.0 [facility] Comment on above: Order Comment: 134 Performed By: #### L 500.4050, L506.1000, L501.9985, L100.0100 #### [facility] [address] [place], [address] Magnesiumon 11-07-2024 Magnesium [Mass/Vol] 2.1 mg/dL Normal 1.5-2.2 [facility] Comment on above: Order Comment: 134 Performed By: #### L 500.4050, L506.1000, L501.9985, L100.0100 #### [facility] [address] [place], [address] Basic Metabolic Profile (BMP )on 11-06-2024 BUN Normal 4-19 [facility] Comment on above: Order Comment: 134 Result Comment: QNS UTO X1 Performed By: #### L 500.4050, L506.1000, L501.9985, L100.0100 #### [facility] [address] [place], [address] BUN/CRE Normal 10-20 [facility] Comment on above: Order Comment: 134 Result Comment: QNS UTO X1 Performed By: #### L 500.4050, L506.1000, L501.9985, L100.0100 #### [facility] [address] [place], [address] Calcium Normal 7.6-11.0 [facility] Comment on above: Order Comment: 134 Result Comment: QNS UTO X1 Performed By: #### L 500.4050, L506.1000, L501.9985, L100.0100 #### [facility] [address] [place], [address] CL Normal 98-108 [facility] Comment on above: Order Comment: 134 Result Comment: QNS UTO X1 Performed By: #### L 500.4050, L506.1000, L501.9985, L100.0100 #### [facility] [address] [place], [address] CO2 Normal 21.0-32.0 [facility] Comment on above: Order Comment: 134 Result Comment: QNS UTO X1 Performed By: #### L 500.4050, L506.1000, L501.9985, L100.0100 #### [facility] [address] [place], [address] CREAT,SERUM Normal 0.70-1.20 [facility] Comment on above: Order Comment: 134 Result Comment: QNS UTO X1 Performed By: #### L 500.4050, L506.1000, L501.9985, L100.0100 #### [facility] [address] [place], [address] eGFR Normal >60 [facility] Comment on above: Order Comment: 134 Result Comment: QNS UTO X1 Performed By: #### L 500.4050, L506.1000, L501.9985, L100.0100 #### [facility] [address] [place], [address] GAP Normal 5-15 [facility] Comment on above: Order Comment: 134 Result Comment: QNS UTO X1 Performed By: #### L 500.4050, L506.1000, L501.9985, L100.0100 #### [facility] [address] [place], [address] GLU Normal 70-99 [facility] Comment on above: Order Comment: 134 Result Comment: QNS UTO X1 Performed By: #### L 500.4050, L506.1000, L501.9985, L100.0100 #### [facility] [address] [place], [address] Potassium Normal 3.3-5.1 [facility] Comment on above: Order Comment: 134 Result Comment: QNS UTO X1 Performed By: #### L 500.4050, L506.1000, L501.9985, L100.0100 #### [facility] [address] [place], [address] Basic Metabolic Profile (BMP) Normal 133-145 [facility] Comment on above: Order Comment: 134 Result Comment: QNS UTO X1 Performed By: #### L 500.4050, L506.1000, L501.9985, L100.0100 #### [facility] [address] [place], [address] CBC W/Diff, Automatedon 06-0 -2024 Absolute Neut Normal 2.0-7.7 [facility] Comment on above: Order Comment: 134 Result Comment: QNS UTO X1 Performed By: #### L 500.4050, L506.1000, L501.9985, L100.0100 #### [facility] [address] [place], [address] HCT Normal 37-47 [facility] Comment on above: Order Comment: 134 Result Comment: QNS UTO X1 Performed By: #### L 500.4050, L506.1000, L501.9985, L100.0100 #### [facility] [address] [place], [address] HGB Normal 12.0-15.0 [facility] Comment on above: Order Comment: 134 Result Comment: QNS UTO X1 Performed By: #### L 500.4050, L506.1000, L501.9985, L100.0100 #### [facility] [address] [place], [address] MCH Normal 27.0-32.0 [facility] Comment on above: Order Comment: 134 Result Comment: QNS UTO X1 Performed By: #### L 500.4050, L506.1000, L501.9985, L100.0100 #### [facility] [address] [place], [address] MCHC Normal 32-36 [facility] Comment on above: Order Comment: 134 Result Comment: QNS UTO X1 Performed By: #### L 500.4050, L506.1000, L501.9985, L100.0100 #### [facility] [address] [place], [address] MCV Normal 81-99 [facility] Comment on above: Order Comment: 134 Result Comment: QNS UTO X1 Performed By: #### L 500.4050, L506.1000, L501.9985, L100.0100 #### [facility] [address] [place], [address] NEUT% Normal 47-70 [facility] Comment on above: Order Comment: 134 Result Comment: QNS UTO X1 Performed By: #### L 500.4050, L506.1000, L501.9985, L100.0100 #### [facility] [address] [place], [address] PLT Normal 150-450 [facility] Comment on above: Order Comment: 134 Result Comment: QNS UTO X1 Performed By: #### L 500.4050, L506.1000, L501.9985, L100.0100 #### [facility] [address] [place], [address] RBC Normal 4.2-5.4 [facility] Comment on above: Order Comment: 134 Result Comment: QNS UTO X1 Performed By: #### L 500.4050, L506.1000, L501.9985, L100.0100 #### [facility] [address] [place], [address] RDW CV Normal 11.6-14.6 [facility] Comment on above: Order Comment: 134 Result Comment: QNS UTO X1 Performed By: #### L 500.4050, L506.1000, L501.9985, L100.0100 #### [facility] [address] [place], [address] RDW SD Normal 35.1-43.9 [facility] Comment on above: Order Comment: 134 Result Comment: QNS UTO X1 Performed By: #### L 500.4050, L506.1000, L501.9985, L100.0100 #### [facility] [address] [place], [address] WBC Normal 4.4-11.0 [facility] Comment on above: Order Comment: 134 Result Comment: QNS UTO X1 Performed By: #### L 500.4050, L506.1000, L501.9985, L100.0100 #### [facility] [address] [place], [address] Lamotrigine (Lamictal) Level on 11-02-2024 LAMOTRIGINE 8.5 ug/mL Normal 2.0-20.0 [facility] Comment on above: Order Comment: 134 Result Comment: Dete ction Limit = 1.0 Performed at: [address] [id number] Homicide Detective: Cody Llanos MD, Phone: [phone] Performed By: #### L 500.4050, L506.1000, L501.9985, L100.0100 #### [facility] [address] [place], [address] Trileptal-Oxcarbazepineon OXCARBAZEPINE 5 ug/mL Low 10-35 [facility] Comment on above: Order Comment: 134 Result Comment: This test was developed and its performance characteristics determined by [facility]. It has not been cleared or approved by the Food and Drug Administration. Detection Limit = 1 Performed By: #### L 500.4050, L506.1000, L501.9985, L100.0100 #### [facility] [address] [place], [address] CRPon 11-01-2024 C-REACTIVE PROT 14.10 mg/L High 0.0-3.0 [facility] Comment on above: Performed By: #### L 501.6710, L501.1400 #### [facility] [address] [place], [address] Uric Acidon 11-01-2024 URIC 5.6 mg/dL Normal 2.6-6.0 [facility] Comment on above: Result Comment: The drugs N-Acetylcysteine and Metamizole may falsely depress this assay. Performed By: #### L 501.6710, L501.1400 #### [facility] [address] [place], [address] Hemoglobin A1con 10-30-2024 HbA1c (Bld) [Mass fraction] 7.1 % High <=5.6 [facility] Comment on above: Order Comment: 134 Result Comment: Norm al < 5.7 % Prediabetic 5.7 - 6.4 % Diabetic >or= 6.5 % Please note range changes. Performed By: #### L 500.4050, L506.1000, L501.9985, L100.0100 #### [facility] [address] [place], [address] Lipid Profileon 10-30-2024 CHOL:HDL 1.80 Normal [facility] Comment on above: Order Comment: 134 Performed By: #### L 500.4050, L506.1000, L501.9985, L100.0100 #### [facility] [address] [place], [address] Cholesterol [Mass/Vol] 99 mg/dL Normal <=200 [facility] Comment on above: Order Comment: 134 Result Comment: Chol esterol level, Desirable <200 mg/dL Borderline high cholesterol 200-239 mg/dL High cholesterol >=240 mg/dL Recommendations of the NCEP Adult Treatment Panel for the following risk-cutoff thresholds for the [place] population. Performed By: #### L 500.4050, L506.1000, L501.9985, L100.0100 #### [facility] [address] [place], [address] Cholesterol in HDL [Mass/Vol] 55 mg/dL Normal [facility] Comment on above: Order Comment: 134 Result Comment: Linda onal Cholesterol Education Program (NCEP) guidelines: <40 mg/dL: Low HDL-cholesterol (major risk factor for CHD) >= 60 mg/dL: High HDL-cholesterol (negative risk factor for CHD) HDL-cholesterol is affected by a number of factors, e.g. smoking, exercise, hormones, sex and age. Performed By: #### L 500.4050, L506.1000, L501.9985, L100.0100 #### [facility] [address] [place], [address] Cholesterol in LDL [Mass/Vol] 34 mg/dL Normal [facility] Comment on above: Order Comment: 134 Result Comment: Bord rriqml=882-666 mg/dL Higher Skmm=275 mg/dL or greater Performed By: #### L 500.4050, L506.1000, L501.9985, L100.0100 #### [facility] [address] [place], [address] Cholesterol in VLDL [Mass/Vol] 10 mg/dL Normal 5-40 [facility] Comment on above: Order Comment: 134 Performed By: #### L 500.4050, L506.1000, L501.9985, L100.0100 #### [facility] [address] [place], [address] Triglyceride [Mass/Vol] 51 mg/dL Normal [facility] Comment on above: Order Comment: 134 Result Comment: The drugs N-Acetylcysteine and Metamizole may falsely depress this assay. Normal range: <150 mg/dL Borderline High: 150-199 mg/dL High: 200-499 mg/dL Very High: >500 mg/dL Performed By: #### L 500.4050, L506.1000, L501.9985, L100.0100 #### [facility] [address] [place], [address] Vitamin D,25 Hydroxyon 10-30 Vitamin D 25-OH 22.0 ng/mL Low 30-100 [facility] Comment on above: Order Comment: 134 Result Comment: Maricarmen min D Status Deficiency: <20 ng/mL (50nmol/L) Insufficiency: 20-30 ng/mL (50-75 nmol/L) Sufficiency: 30-100 ng/mL (75-250 nmol/L) Toxicity: >100 ng/mL (>250 nmol/L) Performed By: #### L 500.4050, L506.1000, L501.9985, L100.0100 #### [facility] [address] [place], [address] CBC-Complete Blood Cnt No Di ffon 10-25-2024 Erythrocyte distribution width (RBC) [Ratio] 15.7 % High 11.6-14.6 [facility] Comment on above: Order Comment: 134 Performed By: #### L 500.4050, L506.1000, L501.9985, L100.0100 #### [facility] [address] [place], [address] Hematocrit (Bld) [Volume fraction] 39.5 % Normal 37-47 [facility] Comment on above: Order Comment: 134 Performed By: #### L 500.4050, L506.1000, L501.9985, L100.0100 #### [facility] [address] [place], [address] Hemoglobin (Bld) [Mass/Vol] 13.0 g/dL Normal 12.0-15.0 [facility] Comment on above: Order Comment: 134 Performed By: #### L 500.4050, L506.1000, L501.9985, L100.0100 #### [facility] [address] [place], [address] MCH (RBC) [Entitic mass] 29.1 pg Normal 27.0-32.0 [facility] Comment on above: Order Comment: 134 Performed By: #### L 500.4050, L506.1000, L501.9985, L100.0100 #### [facility] [address] [place], [address] MCHC (RBC) [Mass/Vol] 32.9 g/dL Normal 32-36 [facility] Comment on above: Order Comment: 134 Performed By: #### L 500.4050, L506.1000, L501.9985, L100.0100 #### [facility] [address] [place], [address] MCV (RBC) [Entitic vol] 88.4 fL Normal 81-99 [facility] Comment on above: Order Comment: 134 Performed By: #### L 500.4050, L506.1000, L501.9985, L100.0100 #### [facility] [address] [place], [address] Platelet mean volume (Bld) [Entitic vol] 11.9 fL Normal 6.2-12.0 [facility] Comment on above: Order Comment: 134 Performed By: #### L 500.4050, L506.1000, L501.9985, L100.0100 #### [facility] [address] [place], [address] Platelets (Bld) [#/Vol] 104 10*3/uL Low 150-450 [facility] Comment on above: Order Comment: 134 Performed By: #### L 500.4050, L506.1000, L501.9985, L100.0100 #### [facility] [address] [place], [address] RBC (Bld) [#/Vol] 4.47 10*6/uL Normal 4.2-5.[address] [facility] Comment on above: Order Comment: 134 Performed By: #### L 500.4050, L506.1000, L501.9985, L100.0100 #### [facility] [address] [place], [address] RDW SD 51.5 fl High 35.1-43.9 [facility] Comment on above: Order Comment: 134 Performed By: #### L 500.4050, L506.1000, L501.9985, L100.0100 #### [facility] [address] [place], [address] WBC (Bld) [#/Vol] 6.3 10*3/uL Normal 4.4-11.0 [facility] Comment on above: Order Comment: 134 Performed By: #### L 500.4050, L506.1000, L501.9985, L100.0100 #### [facility] [address] [place], [address] Comprehensive Metabolic Prof [facility] 10-25-2024 Albumin [Mass/Vol] 3.8 g/dL Normal 3.4-4.8 [facility] Comment on above: Order Comment: 134 Performed By: #### L 500.4050, L506.1000, L501.9985, L100.0100 #### [facility] [address] [place], [address] Albumin/Globulin [Mass ratio] 0.9 {ratio} Normal 0.9-2.4 [facility] Comment on above: Order Comment: 134 Performed By: #### L 500.4050, L506.1000, L501.9985, L100.0100 #### [facility] [address] [place], [address] ALK PHOS 117 U/L High 35-104 [facility] Comment on above: Order Comment: 134 Performed By: #### L 500.4050, L506.1000, L501.9985, L100.0100 #### [facility] [address] [place], [address] ALT [Catalytic activity/Vol] 37 U/L High <=34 [facility] Comment on above: Order Comment: 134 Performed By: #### L 500.4050, L506.1000, L501.9985, L100.0100 #### [facility] [address] [place], [address] AST [Catalytic activity/Vol] 44 U/L High <=31 [facility] Comment on above: Order Comment: 134 Performed By: #### L 500.4050, L506.1000, L501.9985, L100.0100 #### [facility] [address] [place], [address] Bilirubin [Mass/Vol] 0.50 mg/dL Normal 0.00-1.30 [facility] Comment on above: Order Comment: 134 Performed By: #### L 500.4050, L506.1000, L501.9985, L100.0100 #### [facility] [address] [place], [address] BUN/CRE 25.5 RATIO High 10-20 [facility] Comment on above: Order Comment: 134 Performed By: #### L 500.4050, L506.1000, L501.9985, L100.0100 #### [facility] [address] [place], [address] Calcium [Mass/Vol] 9.4 mg/dL Normal 7.6-11.0 [facility] Comment on above: Order Comment: 134 Performed By: #### L 500.4050, L506.1000, L501.9985, L100.0100 #### [facility] [address] [place], [address] Chloride [Moles/Vol] 101 mmol/L Normal 98-108 [facility] Comment on above: Order Comment: 134 Performed By: #### L 500.4050, L506.1000, L501.9985, L100.0100 #### [facility] [address] [place], [address] CO2 [Moles/Vol] 23.5 mmol/L Normal 21.0-32.0 [facility] Comment on above: Order Comment: 134 Performed By: #### L 500.4050, L506.1000, L501.9985, L100.0100 #### [facility] [address] [place], [address] Creatinine [Mass/Vol] 0.93 mg/dL Normal 0.70-1.20 [facility] Comment on above: Order Comment: 134 Performed By: #### L 500.4050, L506.1000, L501.9985, L100.0100 #### [facility] [address] [place], [address] GAP 10 Normal 5-15 [facility] Comment on above: Order Comment: 134 Performed By: #### L 500.4050, L506.1000, L501.9985, L100.0100 #### [facility] [address] [place], [address] GFR/1.73 sq M.predicted among non-blacks MDRD (S/P/Bld) [Vol rate/Area] 65 mL/min/{1.73_m2} Normal >60 [facility] Comment on above: Order Comment: 134 Result Comment: mL/m in/1.73m2 CKD-EPI Creatinine Equation (2020) Performed By: #### L 500.4050, L506.1000, L501.9985, L100.0100 #### [facility] [address] [place], [address] Globulin (S) [Mass/Vol] 4.4 g/dL High 2.2-4.2 [facility] Comment on above: Order Comment: 134 Performed By: #### L 500.4050, L506.1000, L501.9985, L100.0100 #### [facility] [address] [place], [address] Glucose [Mass/Vol] 147 mg/dL High 70-99 [facility] Comment on above: Order Comment: 134 Performed By: #### L 500.4050, L506.1000, L501.9985, L100.0100 #### [facility] [address] [place], [address] Potassium [Moles/Vol] 4.7 mmol/L Normal 3.3-5.1 [facility] Comment on above: Order Comment: 134 Performed By: #### L 500.4050, L506.1000, L501.9985, L100.0100 #### [facility] [address] [place], [address] Sodium [Moles/Vol] 134 mmol/L Normal 133-145 [facility] Comment on above: Order Comment: 134 Performed By: #### L 500.4050, L506.1000, L501.9985, L100.0100 #### [facility] [address] [place], [address] T PROT 8.2 g/dL Normal 5.9-8.4 [facility] Comment on above: Order Comment: 134 Performed By: #### L 500.4050, L506.1000, L501.9985, L100.0100 #### [facility] [address] [place], [address] Urea nitrogen [Mass/Vol] 24 mg/dL High 4-19 [facility] Comment on above: Order Comment: 134 Performed By: #### L 500.4050, L506.1000, L501.9985, L100.0100 #### [facility] [address] [place], [address] Urine Cultureon 10-14-2024 [facility] Urine Culture Urine Culture Escherichia coli [place] Count 80,000-100,000 Escherichia coli: REACTION Ampicillin Islt [...] TMP SMX Islt TRANG <=20 S Normal [facility] Comment on above: Performed By: #### L 501.080 #### [facility] [place], [address] Basic Metabolic Profile (BMP )on 10-12-2024 BUN Normal 4-19 [facility] Comment on above: Result Comment: Canc elled via OM: Order cancelled - Patient discharged Performed By: #### L 500.4050, L506.1000, L501.9985, L100.0100 #### [facility] [address] [place], [address] BUN/CRE Normal 10-20 [facility] Comment on above: Result Comment: Canc elled via OM: Order cancelled - Patient discharged Performed By: #### L 500.4050, L506.1000, L501.9985, L100.0100 #### [facility] [address] [place], [address] Calcium Normal 7.6-11.0 [facility] Comment on above: Result Comment: Canc elled via OM: Order cancelled - Patient discharged Performed By: #### L 500.4050, L506.1000, L501.9985, L100.0100 #### [facility] [address] [place], [address] CL Normal 98-108 [facility] Comment on above: Result Comment: Canc elled via OM: Order cancelled - Patient discharged Performed By: #### L 500.4050, L506.1000, L501.9985, L100.0100 #### [facility] [address] [place], [address] CO2 Normal 21.0-32.0 [facility] Comment on above: Result Comment: Canc elled via OM: Order cancelled - Patient discharged Performed By: #### L 500.4050, L506.1000, L501.9985, L100.0100 #### [facility] [address] [place], [address] CREAT,SERUM Normal 0.70-1.20 [facility] Comment on above: Result Comment: Canc elled via OM: Order cancelled - Patient discharged Performed By: #### L 500.4050, L506.1000, L501.9985, L100.0100 #### [facility] [address] [place], [address] eGFR Normal >60 [facility] Comment on above: Result Comment: Canc elled via OM: Order cancelled - Patient discharged Performed By: #### L 500.4050, L506.1000, L501.9985, L100.0100 #### [facility] [address] [place], [address] GAP Normal 5-15 [facility] Comment on above: Result Comment: Canc elled via OM: Order cancelled - Patient discharged Performed By: #### L 500.4050, L506.1000, L501.9985, L100.0100 #### [facility] [address] [place], [address] GLU Normal 70-99 [facility] Comment on above: Result Comment: Canc elled via OM: Order cancelled - Patient discharged Performed By: #### L 500.4050, L506.1000, L501.9985, L100.0100 #### [facility] [address] [place], [address] Potassium Normal 3.3-5.1 [facility] Comment on above: Result Comment: Canc elled via OM: Order cancelled - Patient discharged Performed By: #### L 500.4050, L506.1000, L501.9985, L100.0100 #### [facility] [address] [place], [address] Basic Metabolic Profile (BMP) Normal 133-145 [facility] Comment on above: Result Comment: Canc elled via OM: Order cancelled - Patient discharged Performed By: #### L 500.4050, L506.1000, L501.9985, L100.0100 #### [facility] [address] [place], [address] CBC W/Diff, Automatedon 05-0 -2024 Absolute Neut Normal 2.0-7.7 [facility] Comment on above: Result Comment: Canc elled via OM: Order cancelled - Patient discharged Performed By: #### L 500.4050, L506.1000, L501.9985, L100.0100 #### [facility] [address] [place], [address] HCT Normal 37-47 [facility] Comment on above: Result Comment: Canc elled via OM: Order cancelled - Patient discharged Performed By: #### L 500.4050, L506.1000, L501.9985, L100.0100 #### [facility] [address] [place], [address] HGB Normal 12.0-15.0 [facility] Comment on above: Result Comment: Canc elled via OM: Order cancelled - Patient discharged Performed By: #### L 500.4050, L506.1000, L501.9985, L100.0100 #### [facility] [address] [place], [address] MCH Normal 27.0-32.0 [facility] Comment on above: Result Comment: Canc elled via OM: Order cancelled - Patient discharged Performed By: #### L 500.4050, L506.1000, L501.9985, L100.0100 #### [facility] [address] [place], [address] MCHC Normal 32-36 [facility] Comment on above: Result Comment: Canc elled via OM: Order cancelled - Patient discharged Performed By: #### L 500.4050, L506.1000, L501.9985, L100.0100 #### [facility] [address] [place], [address] MCV Normal 81-99 [facility] Comment on above: Result Comment: Canc elled via OM: Order cancelled - Patient discharged Performed By: #### L 500.4050, L506.1000, L501.9985, L100.0100 #### [facility] [address] [place], [address] NEUT% Normal 47-70 [facility] Comment on above: Result Comment: Canc elled via OM: Order cancelled - Patient discharged Performed By: #### L 500.4050, L506.1000, L501.9985, L100.0100 #### [facility] [address] [place], [address] PLT Normal 150-450 [facility] Comment on above: Result Comment: Canc elled via OM: Order cancelled - Patient discharged Performed By: #### L 500.4050, L506.1000, L501.9985, L100.0100 #### [facility] [address] [place], [address] RBC Normal 4.2-5.4 [facility] Comment on above: Result Comment: Canc elled via OM: Order cancelled - Patient discharged Performed By: #### L 500.4050, L506.1000, L501.9985, L100.0100 #### [facility] [address] [place], [address] RDW CV Normal 11.6-14.6 [facility] Comment on above: Result Comment: Canc elled via OM: Order cancelled - Patient discharged Performed By: #### L 500.4050, L506.1000, L501.9985, L100.0100 #### [facility] [address] [place], [address] RDW SD Normal 35.1-43.9 [facility] Comment on above: Result Comment: Canc elled via OM: Order cancelled - Patient discharged Performed By: #### L 500.4050, L506.1000, L501.9985, L100.0100 #### [facility] [address] [place], [address] WBC Normal 4.4-11.0 [facility] Comment on above: Result Comment: Canc elled via OM: Order cancelled - Patient discharged Performed By: #### L 500.4050, L506.1000, L501.9985, L100.0100 #### [facility] [address] [place], [address] Absolute lymphocyte countOrd ered By: Tyrell Page on 10-11-2024 Lymphocytes Auto (Unsp spec) [#/Vol] 1.20 10*3/uL 0.83-4.51 [facility] Absolute neutrophil countOrd ered By: Tyrell Page on 10-11-2024 Neutrophils (Bld) [#/Vol] 2.6 10*3/uL 2.0-7.7 [facility] Anion gap in Serum or Plasma Ordered By: Tyrell Page on 10-11-2024 Anion gap [Moles/Vol] 10 mmol/L 5-15 [facility] Automated lymphocyte count a s percentage of total leukocytesOrdered By: Tyrell Page on 10-11-2024 Lymphocytes/100 WBC Auto (Unsp spec) 26.8 % 19-41 [facility] BUN/creatinine ratioOrdered By: Tyrell Page on 10-11-2024 Urea nitrogen/Creatinine [Mass ratio] 28.3 mg/mg High 10-20 [facility] [facility] Basic Metabolic Profile (BMP )on 10-11-2024 BUN/CRE 28.3 RATIO High - [facility] Comment on above: Performed By: #### L 500.4050, L506.1000, L501.9985, L100.0100 #### [facility] [address] [place], [address] Calcium [Mass/Vol] 9.2 mg/dL Normal 7.6-11.0 [facility] Comment on above: Performed By: #### L 500.4050, L506.1000, L501.9985, L100.0100 #### [facility] [address] [place], [address] Chloride [Moles/Vol] 108 mmol/L Normal 98-108 [facility] Comment on above: Performed By: #### L 500.4050, L506.1000, L501.9985, L100.0100 #### [facility] [address] [place], [address] CO2 [Moles/Vol] 20.7 mmol/L Low 21.0-32.0 [facility] Comment on above: Performed By: #### L 500.4050, L506.1000, L501.9985, L100.0100 #### [facility] [address] [place], [address] Creatinine [Mass/Vol] 0.76 mg/dL Normal 0.70-1.20 [facility] Comment on above: Performed By: #### L 500.4050, L506.1000, L501.9985, L100.0100 #### [facility] [address] [place] [place], [address] ECRCL 89.89 ml/min Normal 50-250 [facility] Comment on above: Performed By: #### L 500.4050, L506.1000, L501.9985, L100.0100 #### [facility] [address] [place], [address] GAP 10 Normal 5-15 [facility] Comment on above: Performed By: #### L 500.4050, L506.1000, L501.9985, L100.0100 #### [facility] [address] [place], [address] GFR/1.73 sq M.predicted among non-blacks MDRD (S/P/Bld) [Vol rate/Area] 84 mL/min/{1.73_m2} Normal >60 [facility] Comment on above: Result Comment: mL/m in/1.73m2 CKD-EPI Creatinine Equation (2020) Performed By: #### L 500.4050, L506.1000, L501.9985, L100.0100 #### [facility] [address] [place], [address] Glucose [Mass/Vol] 131 mg/dL High 70-99 [facility] Comment on above: Performed By: #### L 500.4050, L506.1000, L501.9985, L100.0100 #### [facility] [address] [place], [address] Potassium [Moles/Vol] 3.9 mmol/L Normal 3.3-5.1 [facility] Comment on above: Performed By: #### L 500.4050, L506.1000, L501.9985, L100.0100 #### [facility] [address] [place], [address] Sodium [Moles/Vol] 139 mmol/L Normal 133-145 [facility] Comment on above: Performed By: #### L 500.4050, L506.1000, L501.9985, L100.0100 #### [facility] [address] [place], [address] Urea nitrogen [Mass/Vol] 21 mg/dL High 4-19 [facility] Comment on above: Performed By: #### L 500.4050, L506.1000, L501.9985, L100.0100 #### [facility] [address] [place], [address] Basophil percentageOrdered B y: Tyrell Page on 10-11-2024 Basophils/100 WBC (Bld) 0.7 % 0-1 [facility] Bedside Glucoseon 10-11-2024 FINGERSTICK GLU 137 mg/dL High 74-106 [facility] Comment on above: Result Comment: ALINA ADAMSENT OF PATIENT CARE PER NURSING PROTOCOL Performed By: #### L 500.4050, L506.1000, L501.9985, L100.0100 #### [facility] [address] [place], [address] CBC W/Diff, Automatedon 050 PLT EST SLT DEC Normal ADEQ [facility] Comment on above: Performed By: #### L 500.4050, L506.1000, L501.9985, L100.0100 #### [facility] [address] [place], [address] Carbon dioxide, total [Moles /volume] in Central venous bloodOrdered By: Tyrell Page on 10-11-2024 CO2 [Moles/Vol] 20.7 mmol/L Low 21.0-32.0 [facility] Chloride assayOrdered By: Arabella Page on 10-11-2024 Chloride [Moles/Vol] 108 mmol/L 98-108 [facility] Eosinophil percentageOrdered By: Tyrell Page on 10-11-2024 Eosinophils/100 WBC (Bld) 5.1 % High 0-5 [facility] Erythrocyte distribution wid th ratioOrdered By: Tyrell Page on 10-11-2024 Erythrocyte distribution width (RBC) [Ratio] 16.0 % High 11.6-14.6 [facility] Erythrocyte distribution wid th standard deviationOrdered By: Tyrell Page on 10-11-2024 Erythrocyte distribution width (RBC) [Ratio] 50.8 fl High 35.1-43.9 [facility] Glomerular filtration rate ( GFR) estimation/1.73 sq m using serum, plasma, or whole bOrdered By: Tyrell Page on 10-11-2024 GFR/1.73 sq M.predicted among non-blacks MDRD (S/P/Bld) [Vol rate/Area] 84 mL/min/{1.73_m2} >60 [facility] Comment on above: mL/min/1.73m2 CKD-EP I Creatinine Equation (2020) [facility] deOrdered By: Tyrell Page on 10-11-2024 Glucose [Mass/Vol] 137 mg/dL High 74-106 [facility] Comment on above: MANAGEMENT OF PATIEN T CARE PER NURSING PROTOCOL Hematocrit Auto (Bld) [Volum e fraction]Ordered By: Tyrell Page on 10-11-2024 Hematocrit (Bld) [Volume fraction] 34.0 % Low 37-47 [facility] Hemoglobin measurementOrdere d By: Tyrell Page on 10-11-2024 Hemoglobin (Bld) [Mass/Vol] 11.3 g/dL Low 12.0-15.0 [facility] Immature granulocytes/100 WB C Auto (Bld)Ordered By: Tyrell Page on 10-11-2024 Immature granulocytes/100 WBC (Bld) 0.200 % 0.0-0.9 [facility] Comment on above: IG% - Immature Granu locytes (promyelocytes, myelocytes and metamyelocytes) > 1% indicates that a LEFT SHIFT is Present. MCV (mean corpuscular volume ) determinationOrdered By: Tyrell Page on 10-11-2024 MCV (RBC) [Entitic vol] 86.7 fL 81-99 [facility] Magnesiumon 10-11-2024 Magnesium [Mass/Vol] 2.1 mg/dL Normal 1.5-2.2 [facility] Comment on above: Performed By: #### L 506.0200 #### [facility] [address] [place], [place], [id number] Magnesium measurement (mass/ volume)Ordered By: Tyrell Page on 10-11-2024 Magnesium (Unsp spec) [Mass/Vol] 2.1 mg/dL 1.5-2.2 [facility] Mean corpuscular hemoglobin (MCH) determinationOrdered By: Tyrell Page on 10-11-2024 MCH (RBC) [Entitic mass] 28.8 pg 27.0-32.0 [facility] Mean corpuscular hemoglobin concentration (MCHC) determinationOrdered By: Tyrell Page on 10-11-2024 MCHC (RBC) [Mass/Vol] 33.2 g/dL 32-36 [facility] Mean platelet volume determi nationOrdered By: Tyrell Page on 10-11-2024 Platelet mean volume (Bld) [Entitic vol] 11.1 fL 6.2-12.0 [facility] Monocyte percentageOrdered B y: Tyrell Page on 10-11-2024 Monocytes/100 WBC (Bld) 9.8 % 0-10 [facility] Neutrophil percentageOrdered By: Tyrell Page on 10-11-2024 Neutrophils/100 WBC (Bld) 57.4 % 47-70 [facility] Nucleated red blood cell per centageOrdered By: Tyrell Page on 10-11-2024 Nucleated RBC/100 WBC (Bld) [Ratio] 0 % 0-5 [facility] Phosphoruson 10-11-2024 Phosphate [Mass/Vol] 3.7 mg/dL Normal 2.7-4.5 [facility] Comment on above: Performed By: #### L 506.0200 #### [facility] [address] [place], [place], [id number] Platelet countOrdered By: Arabella Page on 10-11-2024 Platelets (Bld) [#/Vol] 95 10*3/uL Low 150-450 [facility] Platelet estimateOrdered By: Tyrell Page on 10-11-2024 Platelets LM Ql (Bld) SLT DEC ADEQ [facility] Potassium measurement (mass/ volume)Ordered By: Tyrell Page on 10-11-2024 Potassium (Unsp spec) [Mass/Vol] 3.9 mmol/L 3.3-5.1 [facility] RBC Auto (Bld) [#/Vol]Ordere d By: Tyrell Page on 10-11-2024 RBC (Bld) [#/Vol] 3.92 10*6/uL Low 4.2-5.[address] [facility] Serum creatinine measurement (mass/volume)Ordered By: Tyrell Page on 10-11-2024 Creatinine [Mass/Vol] 0.76 mg/dL 0.70-1.20 [facility] Serum glucose measurement (m ass/volume)Ordered By: Tyrell Page on 10-11-2024 Glucose [Mass/Vol] 131 mg/dL High 70-99 [facility] Serum or plasma calcium kim urement (mass/volume)Ordered By: Tyrell Page on 10-11-2024 Calcium [Mass/Vol] 9.2 mg/dL 7.6-11.0 [facility] Serum or plasma urea nitroge n measurement (mass/volume)Ordered By: Tyrell Page on 10-11-2024 Urea nitrogen [Mass/Vol] 21 mg/dL High 4-19 [facility] Sodium levelOrdered By: Nikunj Page on 10-11-2024 Sodium [Moles/Vol] 139 mmol/L 133-145 [facility] White blood cell (WBC) count Ordered By: Tyrell Page on 10-11-2024 WBC (Bld) [#/Vol] 4.5 10*3/uL 4.4-11.0 [facility] Bedside Glucoseon 10-10-2024 FINGERSTICK GLU 159 mg/dL High 74-106 [facility] Comment on above: Result Comment: ALINA GABRIEL OF PATIENT CARE PER NURSING PROTOCOL Performed By: #### L 500.4050, L506.1000, L501.9985, L100.0100 #### [facility] [address] [place], [address] FINGERSTICK GLU 196 mg/dL High 74-106 [facility] Comment on above: Result Comment: ALINA GEMENT OF PATIENT CARE PER NURSING PROTOCOL Performed By: #### L 500.4050, L506.1000, L501.9985, L100.0100 #### [facility] [address] [place], [address] FINGERSTICK GLU 165 mg/dL High 74-106 [facility] Comment on above: Result Comment: ALINA GEMENT OF PATIENT CARE PER NURSING PROTOCOL Performed By: #### L 501.080 #### [facility] [address] [place], [address] FINGERSTICK GLU 159 mg/dL High -106 [facility] Comment on above: Result Comment: ALINA GEMENT OF PATIENT CARE PER NURSING PROTOCOL Performed By: #### L 500.4050, L506.1000, L501.9985, L100.0100 #### [facility] [address] [place], [address] FINGERSTICK GLU 148 mg/dL High 74-106 [facility] Comment on above: Result Comment: ALINA GEMENT OF PATIENT CARE PER NURSING PROTOCOL Performed By: #### L 501.080 #### [facility] [address] [place], [address] Bilirubin, totalOrdered By: Missael Lomeli on 10-10-2024 Bilirubin [Mass/Vol] 0.68 mg/dL 0.00-1.30 [facility] CBC W/Diff, Automatedon 050 Absolute Lymph 1.03 X10 3/uL Normal 0.83-4.51 [facility] Comment on above: Performed By: #### L 506.0200 #### [facility] [address] [place], [address] Absolute Neut 3.4 X10 3/uL Normal 2.0-7.7 [facility] Comment on above: Performed By: #### L 506.0200 #### [facility] [address] [place], [address] Basophils/100 WBC (Bld) 0.6 % Normal 0-1 [facility] Comment on above: Performed By: #### L 506.0200 #### [facility] [address] [place], [address] Eosinophils/100 WBC (Bld) 5.1 % High 0-5 [facility] Comment on above: Performed By: #### L 506.0200 #### [facility] [address] [place], [address] Erythrocyte distribution width (RBC) [Ratio] 15.9 % High 11.6-14.6 [facility] Comment on above: Performed By: #### L 506.0200 #### [facility] [address] [place], [address] Hematocrit (Bld) [Volume fraction] 37.6 % Normal 37-47 [facility] Comment on above: Performed By: #### L 506.0200 #### [facility] [address] [place], [address] Hemoglobin (Bld) [Mass/Vol] 12.3 g/dL Normal 12.0-15.0 [facility] Comment on above: Performed By: #### L 506.0200 #### [facility] [address] [place], [address] IG% 0.200 Normal 0.0-0.9 [facility] Comment on above: Result Comment: IG% - Immature Granulocytes (promyelocytes, myelocytes and metamyelocytes) > 1% indicates that a LEFT SHIFT is Present. Performed By: #### L 506.0200 #### [facility] [address] [place], [address] Lymphocytes/100 WBC (Bld) 19.6 % Normal 19-41 [facility] Comment on above: Performed By: #### L 506.0200 #### [facility] [address] [place], [address] MCH (RBC) [Entitic mass] 28.8 pg Normal 27.0-32.0 [facility] Comment on above: Performed By: #### L 506.0200 #### [facility] [address] [place], [address] MCHC (RBC) [Mass/Vol] 32.7 g/dL Normal 32-36 [facility] Comment on above: Performed By: #### L 506.0200 #### [facility] [address] [place], [address] MCV (RBC) [Entitic vol] 88.1 fL Normal 81-99 [facility] Comment on above: Performed By: #### L 506.0200 #### [facility] [address] [place], [address] Monocytes/100 WBC (Bld) 9.1 % Normal 0-10 [facility] Comment on above: Performed By: #### L 506.0200 #### [facility] [address] [place], [address] Neutrophils/100 WBC (Bld) 65.4 % Normal 47-70 [facility] Comment on above: Performed By: #### L 506.0200 #### [facility] [address] [place], [address] Nucleated RBC (Bld) [#/Vol] 0 10*3/uL Normal 0-5 [facility] Comment on above: Performed By: #### L 506.0200 #### [facility] [address] [place], [address] Platelet mean volume (Bld) [Entitic vol] 11.7 fL Normal 6.2-12.0 [facility] Comment on above: Performed By: #### L 506.0200 #### [facility] [address] [place], [address] Platelets (Bld) [#/Vol] 100 10*3/uL Low 150-450 [facility] Comment on above: Performed By: #### L 506.0200 #### [facility] [address] [place], [address] RBC (Bld) [#/Vol] 4.27 10*6/uL Normal 4.2-5.[address] [facility] Comment on above: Performed By: #### L 506.0200 #### [facility] [address] [place], [address] RDW SD 51.4 fl High 35.1-43.9 [facility] Comment on above: Performed By: #### L 506.0200 #### [facility] [address] [place], [address] WBC (Bld) [#/Vol] 5.3 10*3/uL Normal 4.4-11.0 [facility] Comment on above: Performed By: #### L 506.0200 #### [facility] [address] [place], [address] Calculated very low density lipoprotein (VLDL) cholesterol measurementOrdered By: Missael Lomeli on 10-10-2024 Calculated very low density lipoprotein (VLDL) cholesterol measurement 16 mg/dL 5-40 [facility] Comprehensive Metabolic Prof ilon 10-10-2024 Albumin [Mass/Vol] 3.5 g/dL Normal 3.4-4.8 [facility] Comment on above: Performed By: #### L 503.0106 #### [facility] [address] [place], [address] Albumin/Globulin [Mass ratio] 1.0 {ratio} Normal 0.9-2.4 [facility] Comment on above: Performed By: #### L 503.0106 #### [facility] [address] [place], [address] ALK PHOS 122 U/L High 35-104 [facility] Comment on above: Performed By: #### L 503.0106 #### [facility] [address] [place], [address] ALT [Catalytic activity/Vol] 23 U/L Normal <=34 [facility] Comment on above: Performed By: #### L 503.0106 #### [facility] [address] [place], [address] AST [Catalytic activity/Vol] 37 U/L High <=31 [facility] Comment on above: Result Comment: Hemo lysis present, Results??could be affected. ?? Performed By: #### L 503.0106 #### [facility] [address] [place], [address] Bilirubin [Mass/Vol] 0.68 mg/dL Normal 0.00-1.30 [facility] Comment on above: Performed By: #### L 503.0106 #### [facility] [address] [place], [address] BUN/CRE 25.4 RATIO High 10-20 [facility] Comment on above: Performed By: #### L 503.0106 #### [facility] [address] [place], [address] Calcium [Mass/Vol] 8.9 mg/dL Normal 7.6-11.0 [facility] Comment on above: Performed By: #### L 503.0106 #### [facility] [address] [place], [address] Chloride [Moles/Vol] 106 mmol/L Normal 98-108 [facility] Comment on above: Performed By: #### L 503.0106 #### [facility] [address] [place], [address] CO2 [Moles/Vol] 19.0 mmol/L Low 21.0-32.0 [facility] Comment on above: Performed By: #### L 503.0106 #### [facility] [address] [place], [address] Creatinine [Mass/Vol] 0.78 mg/dL Normal 0.70-1.20 [facility] Comment on above: Performed By: #### L 503.0106 #### [facility] [address] [place], [address] ECRCL 88.83 ml/min Normal 50-250 [facility] Comment on above: Performed By: #### L 503.0106 #### [facility] [address] [place], [address] GAP 13 Normal 5-15 [facility] Comment on above: Performed By: #### L 503.0106 #### [facility] [address] [place], [address] GFR/1.73 sq M.predicted among non-blacks MDRD (S/P/Bld) [Vol rate/Area] 81 mL/min/{1.73_m2} Normal >60 [facility] Comment on above: Result Comment: mL/m in/1.73m2 CKD-EPI Creatinine Equation (2020) Performed By: #### L 503.0106 #### [facility] [address] [place], [address] Globulin (S) [Mass/Vol] 3.7 g/dL Normal 2.2-4.2 [facility] Comment on above: Performed By: #### L 503.0106 #### [facility] [address] [place], [address] Glucose [Mass/Vol] 151 mg/dL High 70-99 [facility] Comment on above: Performed By: #### L 503.0106 #### [facility] [address] [place], [address] Potassium [Moles/Vol] 4.3 mmol/L Normal 3.3-5.1 [facility] Comment on above: Result Comment: Hemo lysis present, Results??could be affected. ?? Performed By: #### L 503.0106 #### [facility] [address] [place], [address] Sodium [Moles/Vol] 138 mmol/L Normal 133-145 [facility] Comment on above: Performed By: #### L 503.0106 #### [facility] [address] [place], [address] T PROT 7.2 g/dL Normal 5.9-8.4 [facility] Comment on above: Performed By: #### L 503.0106 #### [facility] [address] [place], [address] Urea nitrogen [Mass/Vol] 20 mg/dL High 4-19 [facility] Comment on above: Performed By: #### L 503.0106 #### [facility] [address] [place], [address] Folate [Moles/volume] in Ser um or PlasmaOrdered By: Missael Lomeli on 10-10-2024 Folate [Moles/Vol] 7.20 ng/mL 4.60-34.80 [facility] Comment on above: Hemolysis, Results w ill be affected, Requires Recollection. Folates,Serum (Folic Acid)on 10-10-2024 FOLATES,SERUM 7.20 ng/mL Normal 4.60-34.80 [facility] Comment on above: Order Comment: N Result Comment: Hemo lysis, Results will be affected, Requires Recollection. Performed By: #### L 506.0200 #### [facility] [address] [place], [place], [id number] Hemoglobin A1con 10-10-2024 HbA1c (Bld) [Mass fraction] 7.2 % High <=5.6 [facility] Comment on above: Result Comment: Norm al < 5.7 % Prediabetic 5.7 - 6.4 % Diabetic >or= 6.5 % Please note range changes. Performed By: #### L 503.0106 #### [facility] [address] [place], [place], [id number] LDL calc ser/plasOrdered By: Missael Lomeli on 10-10-2024 Cholesterol in LDL [Mass/Vol] 31 mg/dL [facility] Comment on above: Mvdypxxrvo=720-099 m g/dL & Higher Lnka=497 mg/dL or greater Laboratory - Chemistry and C hemistry - challengeOrdered By: Missael Lomeli on 10-10-2024 AST [Catalytic activity/Vol] 37 U/L High <32 [facility] Comment on above: Hemolysis present, R esults could be affected. Lipid Profileon 10-10-2024 CHOL:HDL 1.84 Normal [facility] Comment on above: Performed By: #### L 506.0200 #### [facility] [address] [place], [place], [id number] (096) Cholesterol [Mass/Vol] 103 mg/dL Normal <=200 [facility] Comment on above: Result Comment: Chol esterol level, Desirable <200 mg/dL Borderline high cholesterol 200-239 mg/dL High cholesterol >=240 mg/dL Recommendations of the NCEP Adult Treatment Panel for the following risk-cutoff thresholds for the [place] population. Performed By: #### L 506.0200 #### [facility] [address] [place], [place], [id number] (990) Cholesterol in HDL [Mass/Vol] 56 mg/dL Normal [facility] Comment on above: Result Comment: Linda onal Cholesterol Education Program (NCEP) guidelines: <40 mg/dL: Low HDL-cholesterol (major risk factor for CHD) >= 60 mg/dL: High HDL-cholesterol (negative risk factor for CHD) HDL-cholesterol is affected by a number of factors, e.g. smoking, exercise, hormones, sex and age. Performed By: #### L 506.0200 #### [facility] [address] [place], [address] Cholesterol in LDL [Mass/Vol] 31 mg/dL Normal [facility] Comment on above: Result Comment: Bord jkejtv=322-611 mg/dL Higher Bzuf=827 mg/dL or greater Performed By: #### L 506.0200 #### [facility] [address] [place], [address] Cholesterol in VLDL [Mass/Vol] 16 mg/dL Normal 5-40 [facility] Comment on above: Performed By: #### L 506.0200 #### [facility] [address] [place], [address] Triglyceride [Mass/Vol] 82 mg/dL Normal [facility] Comment on above: Result Comment: The drugs N-Acetylcysteine and Metamizole may falsely depress this assay. Normal range: <150 mg/dL Borderline High: 150-199 mg/dL High: 200-499 mg/dL Very High: >500 mg/dL Performed By: #### L 506.0200 #### [facility] [address] [place], [address] Phosphoruson 10-10-2024 Phosphate [Mass/Vol] 3.3 mg/dL Normal 2.7-4.5 [facility] Comment on above: Performed By: #### L 506.0200 #### [facility] [address] [place], [address] Screening total cholesterol/ high density lipoprotein (HDL) cholesterol ratioOrdered By: Missael Lomeli on 10-10-2024 Cholesterol.total/Cho lesterol in HDL [Mass ratio] 1.84 {ratio} [facility] Serum globulin measurementOr dered By: Missael Lomeli on 10-10-2024 Globulin (S) [Mass/Vol] 3.7 g/dL 2.2-4.2 [facility] Serum or plasma alanine burnette otransferase (ALT) measurementOrdered By: Missael Lomeli on 10-10-2024 ALT [Catalytic activity/Vol] 23 U/L <35 [facility] Serum or plasma albumin kim urement (mass/volume)Ordered By: Missael Lomeli on 10-10-2024 Albumin [Mass/Vol] 3.5 g/dL 3.4-4.8 [facility] Serum or plasma albumin/glob ulin mass ratioOrdered By: Missael Lomeli on 10-10-2024 Albumin/Globulin [Mass ratio] 1.0 {ratio} 0.9-2.4 [facility] Serum or plasma alkaline regina sphatase measurementOrdered By: Missael Lomeli on 10-10-2024 ALP [Catalytic activity/Vol] 122 U/L High 35-104 [facility] Serum or plasma cholesterol in HDL measurement (mass/volume)Ordered By: Missael Lomeli on 10-10-2024 Cholesterol in HDL [Mass/Vol] 56 mg/dL >40 [facility] Comment on above: National Cholesterol Education Program (NCEP) guidelines:<40 mg/dL: Low HDL-cholesterol (major risk factor for CHD)>= 60 mg/dL: High HDL-cholesterol (negative risk factor for CHD)HDL-cholesterol is affected by a number of factors, e.g. smoking, exercise, hormones, sex and age. Serum or plasma cholesterol measurement (mass/volume)Ordered By: Missael Lomeli on 10-10-2024 Cholesterol [Mass/Vol] 103 mg/dL <201 [facility] Comment on above: Cholesterol level, D esirable <200 mg/dLBorderline high cholesterol 200-239 mg/dLHigh cholesterol >=240 mg/dLRecommendations of the NCEP Adult Treatment Panel for the following risk-cutoff thresholds for the [place] population. Total proteinOrdered By: Enrrique Lomeli on 10-10-2024 Protein [Mass/Vol] 7.2 g/dL 5.9-8.4 [facility] Triglycerides measurementOrd ered By: Missael Lomeli on 10-10-2024 Triglyceride [Mass/Vol] 82 mg/dL <199 [facility] Comment on above: The drugs N-Acetylcy steine and Metamizole may falsely depress this assay. Normal range: <150 mg/dLBorderline High: 150-199 mg/dLHigh: 200-499 mg/dLVery High: >500 mg/dL Absolute lymphocyte countOrd ered By: Shayna Malhotra on 10-09-2024 Lymphocytes Auto (Unsp spec) [#/Vol] 0.97 10*3/uL 0.83-4.51 [facility] Absolute neutrophil countOrd ered By: Dany Richardson on 10-09-2024 Neutrophils (Bld) [#/Vol] 4.9 10*3/uL 2.0-7.7 [facility] Absolute neutrophil countOrd ered By: Shayna Malhotra on 10-09-2024 Neutrophils (Bld) [#/Vol] 4.4 10*3/uL 2.0-7.7 [facility] Alcohol, Blood (Medical)-Ser umon 10-09-2024 SERUM ETOH < 10.1 Normal <=10.0 [facility] Comment on above: Result Comment: This test is for medical purposes only. The legal definition of intoxication varies according to local law. Performed By: #### L 503.0106 #### [facility] [place], [address] Amorphous sediment detection in urine sediment by light microscopyOrdered By: Dany Richardson on 10-09-2024 Amorphous sediment LM Ql (Urine sed) 1+ [facility] Amphetamine detection with 1 000 ng/mL as cutoffOrdered By: Missael Lomeli on 10-09-2024 Amphetamines Screen method >1000 ng/mL Ql (U) Negative < 200 ng/mL [facility] Anion gap in Serum or Plasma Ordered By: Dany Richardson on 10-09-2024 Anion gap [Moles/Vol] 11 mmol/L 10-18 [facility] Anion gap in Serum or Plasma Ordered By: Shayna Malhotra on 10-09-2024 Anion gap [Moles/Vol] 12 mmol/L 10-18 [facility] Automated lymphocyte count a s percentage of total leukocytesOrdered By: Shayna Malhotra on 10-09-2024 Lymphocytes/100 WBC Auto (Unsp spec) 16.1 % Low 19-41 [facility] BUN/creatinine ratioOrdered By: Dany Richardson on 10-09-2024 Urea nitrogen/Creatinine [Mass ratio] 26.6 mg/mg High 10- [facility] BUN/creatinine ratioOrdered By: Shayna Malhotra on 10-09-2024 Urea nitrogen/Creatinine [Mass ratio] 25.9 mg/mg High - [facility] Basophil percentageOrdered B y: Dany Richardson on 10-09-2024 Basophils/100 WBC (Bld) 0.4 % 0-1 [facility] Basophil percentageOrdered B y: Shayna Malhotra on 10-09-2024 Basophils/100 WBC (Bld) 0.5 % 0-1 [facility] Bilirubin Test strip Ql (U)O rdered By: Dany Richardson on 10-09-2024 Bilirubin Ql (U) Negative Negative [facility] Bilirubin, totalOrdered By: Dany Richardson on 10-09-2024 Bilirubin [Mass/Vol] 0.67 mg/dL 0.00-1.30 [facility] Bilirubin, totalOrdered By: Shayna Malhotra on 10-09-2024 Bilirubin [Mass/Vol] 0.62 mg/dL 0.00-1.30 [facility] CBC W/Diff, Automatedon Absolute Lymph 1.11 X10 3/uL Normal 0.83-4.51 [facility] Comment on above: Performed By: #### L 500.4050, L506.1000, L501.9985, L100.0100 #### [facility] [address] [place], [address] Absolute Neut 4.9 X10 3/uL Normal 2.0-7.7 [facility] Comment on above: Performed By: #### L 500.4050, L506.1000, L501.9985, L100.0100 #### [facility] [address] [place], [address] Basophils/100 WBC (Bld) 0.4 % Normal 0-1 [facility] Comment on above: Performed By: #### L 500.4050, L506.1000, L501.9985, L100.0100 #### [facility] [address] [place], [address] Eosinophils/100 WBC (Bld) 2.5 % Normal 0-5 [facility] Comment on above: Performed By: #### L 500.4050, L506.1000, L501.9985, L100.0100 #### [facility] [address] [place], [address] Erythrocyte distribution width (RBC) [Ratio] 15.9 % High 11.6-14.6 [facility] Comment on above: Performed By: #### L 500.4050, L506.1000, L501.9985, L100.0100 #### [facility] [address] [place], [address] Hematocrit (Bld) [Volume fraction] 40.8 % Normal 37-47 [facility] Comment on above: Performed By: #### L 500.4050, L506.1000, L501.9985, L100.0100 #### [facility] [address] [place], [address] Hemoglobin (Bld) [Mass/Vol] 13.5 g/dL Normal 12.0-15.0 [facility] Comment on above: Performed By: #### L 500.4050, L506.1000, L501.9985, L100.0100 #### [facility] [address] [place], [address] IG% 0.400 Normal 0.0-0.9 [facility] Comment on above: Result Comment: IG% - Immature Granulocytes (promyelocytes, myelocytes and metamyelocytes) > 1% indicates that a LEFT SHIFT is Present. Performed By: #### L 500.4050, L506.1000, L501.9985, L100.0100 #### [facility] [address] [place], [address] Lymphocytes/100 WBC (Bld) 16.3 % Low 19-41 [facility] Comment on above: Performed By: #### L 500.4050, L506.1000, L501.9985, L100.0100 #### [facility] [address] [place], [address] MCH (RBC) [Entitic mass] 28.9 pg Normal 27.0-32.0 [facility] Comment on above: Performed By: #### L 500.4050, L506.1000, L501.9985, L100.0100 #### [facility] [address] [place], [address] MCHC (RBC) [Mass/Vol] 33.1 g/dL Normal 32-36 [facility] Comment on above: Performed By: #### L 500.4050, L506.1000, L501.9985, L100.0100 #### [facility] [address] [place], [address] MCV (RBC) [Entitic vol] 87.4 fL Normal 81-99 [facility] Comment on above: Performed By: #### L 500.4050, L506.1000, L501.9985, L100.0100 #### [facility] [address] [place], [address] Monocytes/100 WBC (Bld) 8.3 % Normal 0-10 [facility] Comment on above: Performed By: #### L 500.4050, L506.1000, L501.9985, L100.0100 #### [facility] [address] [place], [address] Neutrophils/100 WBC (Bld) 72.1 % High 47-70 [facility] Comment on above: Performed By: #### L 500.4050, L506.1000, L501.9985, L100.0100 #### [facility] [address] [place], [address] Nucleated RBC (Bld) [#/Vol] 0 10*3/uL Normal 0-5 [facility] Comment on above: Performed By: #### L 500.4050, L506.1000, L501.9985, L100.0100 #### [facility] [address] [place], [address] Platelet mean volume (Bld) [Entitic vol] 11.8 fL Normal 6.2-12.0 [facility] Comment on above: Performed By: #### L 500.4050, L506.1000, L501.9985, L100.0100 #### [facility] [address] [place], [address] Platelets (Bld) [#/Vol] 106 10*3/uL Low 150-450 [facility] Comment on above: Performed By: #### L 500.4050, L506.1000, L501.9985, L100.0100 #### [facility] [address] [place], [address] RBC (Bld) [#/Vol] 4.67 10*6/uL Normal 4.2-5.[address] [facility] Comment on above: Performed By: #### L 500.4050, L506.1000, L501.9985, L100.0100 #### [facility] [address] [place], [address] RDW SD 51.0 fl High 35.1-43.9 [facility] Comment on above: Performed By: #### L 500.4050, L506.1000, L501.9985, L100.0100 #### [facility] [address] [place], [address] WBC (Bld) [#/Vol] 6.8 10*3/uL Normal 4.4-11.0 [facility] Comment on above: Performed By: #### L 500.4050, L506.1000, L501.9985, L100.0100 #### [facility] [address] [place], [address] Absolute Lymph 0.97 X10 3/uL Normal 0.83-4.51 [facility] Comment on above: Order Comment: 134 Performed By: #### L 503.0106 #### [facility] [address] [place], [address] Absolute Neut 4.4 X10 3/uL Normal 2.0-7.7 [facility] Comment on above: Order Comment: 134 Performed By: #### L 503.0106 #### [facility] [address] [place], [address] Basophils/100 WBC (Bld) 0.5 % Normal 0-1 [facility] Comment on above: Order Comment: 134 Performed By: #### L 503.0106 #### [facility] [address] [place], [address] Eosinophils/100 WBC (Bld) 1.2 % Normal 0-5 [facility] Comment on above: Order Comment: 134 Performed By: #### L 503.0106 #### [facility] [address] [place], [address] Erythrocyte distribution width (RBC) [Ratio] 15.7 % High 11.6-14.6 [facility] Comment on above: Order Comment: 134 Performed By: #### L 503.0106 #### [facility] [address] [place], [address] Hematocrit (Bld) [Volume fraction] 40.9 % Normal 37-47 [facility] Comment on above: Order Comment: 134 Performed By: #### L 503.0106 #### [facility] [address] [place], [address] Hemoglobin (Bld) [Mass/Vol] 13.5 g/dL Normal 12.0-15.0 [facility] Comment on above: Order Comment: 134 Performed By: #### L 503.0106 #### [facility] [address] [place], [address] IG% 0.300 Normal 0.0-0.9 [facility] Comment on above: Order Comment: 134 Result Comment: IG% - Immature Granulocytes (promyelocytes, myelocytes and metamyelocytes) > 1% indicates that a LEFT SHIFT is Present. Performed By: #### L 503.0106 #### [facility] [address] [place], [address] Lymphocytes/100 WBC (Bld) 16.1 % Low 19-41 [facility] Comment on above: Order Comment: 134 Performed By: #### L 503.0106 #### [facility] [address] [place], [address] MCH (RBC) [Entitic mass] 28.8 pg Normal 27.0-32.0 [facility] Comment on above: Order Comment: 134 Performed By: #### L 503.0106 #### [facility] [address] [place], [address] MCHC (RBC) [Mass/Vol] 33.0 g/dL Normal 32-36 [facility] Comment on above: Order Comment: 134 Performed By: #### L 503.0106 #### [facility] [address] [place], [address] MCV (RBC) [Entitic vol] 87.4 fL Normal 81-99 [facility] Comment on above: Order Comment: 134 Performed By: #### L 503.0106 #### [facility] [address] [place], [address] Monocytes/100 WBC (Bld) 8.4 % Normal 0-10 [facility] Comment on above: Order Comment: 134 Performed By: #### L 503.0106 #### [facility] [address] [place], [address] Neutrophils/100 WBC (Bld) 73.5 % High 47-70 [facility] Comment on above: Order Comment: 134 Performed By: #### L 503.0106 #### [facility] [address] [place], [address] Nucleated RBC (Bld) [#/Vol] 0 10*3/uL Normal 0-5 [facility] Comment on above: Order Comment: 134 Performed By: #### L 503.0106 #### [facility] [address] [place], [address] Platelet mean volume (Bld) [Entitic vol] 10.8 fL Normal 6.2-12.0 [facility] Comment on above: Order Comment: 134 Performed By: #### L 503.0106 #### [facility] [address] [place], [address] Platelets (Bld) [#/Vol] 107 10*3/uL Low 150-450 [facility] Comment on above: Order Comment: 134 Performed By: #### L 503.0106 #### [facility] [address] [place], [address] RBC (Bld) [#/Vol] 4.68 10*6/uL Normal 4.2-5.[address] [facility] Comment on above: Order Comment: 134 Performed By: #### L 503.0106 #### [facility] [address] [place], [address] RDW SD 50.2 fl High 35.1-43.9 [facility] Comment on above: Order Comment: 134 Performed By: #### L 503.0106 #### [facility] [address] [place], [address] WBC (Bld) [#/Vol] 6.0 10*3/uL Normal 4.4-11.0 [facility] Comment on above: Order Comment: 134 Performed By: #### L 503.0106 #### [facility] [address] [place], [address] CRPon 10-09-2024 C-REACTIVE PROT 5.92 mg/L High 0.0-3.0 [facility] Comment on above: Performed By: #### L 503.0106 #### [facility] [address] [place], [address] Carbon dioxide, total [Moles /volume] in Central venous bloodOrdered By: Dany Richardson on 10-09-2024 CO2 [Moles/Vol] 21.0 mmol/L 21.0-32.0 [facility] Carbon dioxide, total [Moles /volume] in Central venous bloodOrdered By: Shayna Malhotra on 10-09-2024 CO2 [Moles/Vol] 22.6 mmol/L 21.0-32.0 [facility] Chloride assayOrdered By: Nolan Richardson on 10-09-2024 Chloride [Moles/Vol] 106 mmol/L 98-108 [facility] Chloride assayOrdered By: Maryanne Malhotra on 10-09-2024 Chloride [Moles/Vol] 104 mmol/L 98-108 [facility] Comprehensive Metabolic Prof ilon 10-09-2024 Albumin [Mass/Vol] 3.8 g/dL Normal 3.4-4.8 [facility] Comment on above: Performed By: #### L 500.4050, L506.1000, L501.9985, L100.0100 #### [facility] [address] [place], [address] Albumin/Globulin [Mass ratio] 0.8 {ratio} Low 0.9-2.4 [facility] Comment on above: Performed By: #### L 500.4050, L506.1000, L501.9985, L100.0100 #### [facility] [address] [place], [address] ALK PHOS 135 U/L High 35-104 [facility] Comment on above: Performed By: #### L 500.4050, L506.1000, L501.9985, L100.0100 #### [facility] [address] [place], [address] ALT [Catalytic activity/Vol] 23 U/L Normal <=34 [facility] Comment on above: Performed By: #### L 500.4050, L506.1000, L501.9985, L100.0100 #### [facility] [address] [place], [address] AST [Catalytic activity/Vol] 40 U/L High <=31 [facility] Comment on above: Result Comment: Hemo lysis present, Results??could be affected. ?? Performed By: #### L 500.4050, L506.1000, L501.9985, L100.0100 #### [facility] [address] [place], [address] Bilirubin [Mass/Vol] 0.67 mg/dL Normal 0.00-1.30 [facility] Comment on above: Performed By: #### L 500.4050, L506.1000, L501.9985, L100.0100 #### [facility] [address] [place], [address] BUN/CRE 26.6 RATIO High 10-20 [facility] Comment on above: Performed By: #### L 500.4050, L506.1000, L501.9985, L100.0100 #### [facility] [address] [place], [address] Calcium [Mass/Vol] 9.7 mg/dL Normal 7.6-11.0 [facility] Comment on above: Performed By: #### L 500.4050, L506.1000, L501.9985, L100.0100 #### [facility] [address] [place], [address] Chloride [Moles/Vol] 106 mmol/L Normal 98-108 [facility] Comment on above: Performed By: #### L 500.4050, L506.1000, L501.9985, L100.0100 #### [facility] [address] [place], [address] CO2 [Moles/Vol] 21.0 mmol/L Normal 21.0-32.0 [facility] Comment on above: Performed By: #### L 500.4050, L506.1000, L501.9985, L100.0100 #### [facility] [address] [place], [address] Creatinine [Mass/Vol] 0.88 mg/dL Normal 0.70-1.20 [facility] Comment on above: Performed By: #### L 500.4050, L506.1000, L501.9985, L100.0100 #### [facility] [address] [place], [address] ECRCL 81.27 ml/min Normal 50-250 [facility] Comment on above: Performed By: #### L 500.4050, L506.1000, L501.9985, L100.0100 #### [facility] [address] [place], [address] GAP 11 Normal 5-15 [facility] Comment on above: Performed By: #### L 500.4050, L506.1000, L501.9985, L100.0100 #### [facility] [address] [place], [address] GFR/1.73 sq M.predicted among non-blacks MDRD (S/P/Bld) [Vol rate/Area] 70 mL/min/{1.73_m2} Normal >60 [facility] Comment on above: Result Comment: mL/m in/1.73m2 CKD-EPI Creatinine Equation (2020) Performed By: #### L 500.4050, L506.1000, L501.9985, L100.0100 #### [facility] [address] [place], [address] Globulin (S) [Mass/Vol] 4.6 g/dL High 2.2-4.2 [facility] Comment on above: Performed By: #### L 500.4050, L506.1000, L501.9985, L100.0100 #### [facility] [address] [place], [address] Glucose [Mass/Vol] 138 mg/dL High 70-99 [facility] Comment on above: Performed By: #### L 500.4050, L506.1000, L501.9985, L100.0100 #### [facility] [address] [place], [address] Potassium [Moles/Vol] 4.5 mmol/L Normal 3.3-5.1 [facility] Comment on above: Result Comment: Hemo lysis present, Results??could be affected. ?? Performed By: #### L 500.4050, L506.1000, L501.9985, L100.0100 #### [facility] [address] [place], [address] Sodium [Moles/Vol] 138 mmol/L Normal 133-145 [facility] Comment on above: Performed By: #### L 500.4050, L506.1000, L501.9985, L100.0100 #### [facility] [address] [place], [address] T PROT 8.4 g/dL Normal 5.9-8.4 [facility] Comment on above: Performed By: #### L 500.4050, L506.1000, L501.9985, L100.0100 #### [facility] [address] [place], [address] Urea nitrogen [Mass/Vol] 23 mg/dL High 4-19 [facility] Comment on above: Performed By: #### L 500.4050, L506.1000, L501.9985, L100.0100 #### [facility] [address] [place], [address] Albumin [Mass/Vol] 4.0 g/dL Normal 3.4-4.8 [facility] Comment on above: Order Comment: 134 Performed By: #### L 501.080 #### [facility] [address] [place], [address] Albumin/Globulin [Mass ratio] 0.8 {ratio} Low 0.9-2.4 [facility] Comment on above: Order Comment: 134 Performed By: #### L 501.080 #### [facility] [address] [place], [address] ALK PHOS 148 U/L High 35-104 [facility] Comment on above: Order Comment: 134 Performed By: #### L 501.080 #### [facility] [address] [place], [address] ALT [Catalytic activity/Vol] 26 U/L Normal <=34 [facility] Comment on above: Order Comment: 134 Performed By: #### L 501.080 #### [facility] [address] [place], [address] AST [Catalytic activity/Vol] 37 U/L High <=31 [facility] Comment on above: Order Comment: 134 Performed By: #### L 501.080 #### [facility] [address] [place], [address] Bilirubin [Mass/Vol] 0.62 mg/dL Normal 0.00-1.30 [facility] Comment on above: Order Comment: 134 Performed By: #### L 501.080 #### [facility] [address] [place], [address] BUN/CRE 25.9 RATIO High 10-20 [facility] Comment on above: Order Comment: 134 Performed By: #### L 501.080 #### [facility] [address] [place], [address] Calcium [Mass/Vol] 9.6 mg/dL Normal 7.6-11.0 [facility] Comment on above: Order Comment: 134 Performed By: #### L 501.080 #### [facility] [address] [place], [address] Chloride [Moles/Vol] 104 mmol/L Normal 98-108 [facility] Comment on above: Order Comment: 134 Performed By: #### L 501.080 #### [facility] [address] [place], [address] CO2 [Moles/Vol] 22.6 mmol/L Normal 21.0-32.0 [facility] Comment on above: Order Comment: 134 Performed By: #### L 501.080 #### [facility] [address] [place], [address] Creatinine [Mass/Vol] 0.82 mg/dL Normal 0.70-1.20 [facility] Comment on above: Order Comment: 134 Performed By: #### L 501.080 #### [facility] [address] [place], [address] GAP 12 Normal 5-15 [facility] Comment on above: Order Comment: 134 Performed By: #### L 501.080 #### [facility] [address] [place], [address] GFR/1.73 sq M.predicted among non-blacks MDRD (S/P/Bld) [Vol rate/Area] 76 mL/min/{1.73_m2} Normal >60 [facility] Comment on above: Order Comment: 134 Result Comment: mL/m in/1.73m2 CKD-EPI Creatinine Equation (2020) Performed By: #### L 501.080 #### [facility] [address] [place], [address] Globulin (S) [Mass/Vol] 4.8 g/dL High 2.2-4.2 [facility] Comment on above: Order Comment: 134 Performed By: #### L 501.080 #### [facility] [address] [place], [address] Glucose [Mass/Vol] 173 mg/dL High 70-99 [facility] Comment on above: Order Comment: 134 Performed By: #### L 501.080 #### [facility] [address] [place], [address] Potassium [Moles/Vol] 4.2 mmol/L Normal 3.3-5.1 [facility] Comment on above: Order Comment: 134 Performed By: #### L 501.080 #### [facility] [address] [place], [address] Sodium [Moles/Vol] 138 mmol/L Normal 133-145 [facility] Comment on above: Order Comment: 134 Performed By: #### L 501.080 #### [facility] [address] [place], [address] T PROT 8.9 g/dL High 5.9-8.4 [facility] Comment on above: Order Comment: 134 Performed By: #### L 501.080 #### [facility] [address] [place], [address] Urea nitrogen [Mass/Vol] 21 mg/dL High 4-19 [facility] Comment on above: Order Comment: 134 Performed By: #### L 501.080 #### [facility] [address] [place], [address] Emergency Department Summary on 10-09-2024 Emergency Department Summary [facility] Medical Records Department [address] [place] [address] Emergency Department Summary 10/09/24 MR#: [id number] Acct: [id number] Name: VIDA NINA Rep #: [id number] : 1950 73 From: Dany Richardson MD PCP: Dr. Shayna Malhotra MD Status:REG ER Location: ED HPI History of Present Illness Chief Complaint: Lower Extremity Injury Narrative Narrative: 73-year-old female states that she had pins placed in her left foot approximately 15 years ago [place] after breaking her heel. She is currently in [facility]. She states for the last 2 weeks she has been having increasing foot pain. She states that on Tuesday, probably of the last week, she had x-rays obtained at the . She went and saw Dr. Shayna Malhotra on Tuesday, but he did not have the x-ray results. She states that she is having a lot of pain in her left heel that is worse with weightbearing and walking and palpation. She states that it feels as if she is having a baby out of her left heel. [facility] Medical History Obesity Anxiety Cancer Anxiety Diabetes [...] History powder [facility] Lite Strips) blood-glucose meter ([employer] 11/23/21 Unknown History Lite Meter kit) lancets 28 gauge ([employer] 11/23/21 Unknown History Lancets) nystatin 100,000 unit/gram topical 1 applic topical TID #0 grams Unknown Rx powder ([facility]) quetiapine 100 mg tablet 300 [...] ROS Narrative (more content not included)... Normal [facility] Eosinophil percentageOrdered By: Dany Richardson on 10-09-2024 Eosinophils/100 WBC (Bld) 2.5 % 0-5 [facility] Eosinophil percentageOrdered By: Shayna Malhotra on 10-09-2024 Eosinophils/100 WBC (Bld) 1.2 % 0-5 [facility] Epithelial cells.squamous LM Ql (Urine sed)Ordered By: Dany Richardson on 10-09-2024 Epithelial cells.squamous LM.HPF (Urine sed) [#/Area] 0 /[HPF] 5-10 [facility] Erythrocyte Sed Rateon 10-09 SED RATE 49 mm/hr High 0-30 [facility] Comment on above: Performed By: #### L 503.0106 #### [facility] [place], [address] Erythrocyte distribution wid th (RBC) [Ratio]Ordered By: Dany Richardson on 10-09-2024 Erythrocyte distribution width (RBC) [Entitic vol] 51.0 fL High 35.1-43.9 [facility] Erythrocyte distribution wid th (RBC) [Ratio]Ordered By: Shayna Malhotra on 10-09-2024 Erythrocyte distribution width (RBC) [Entitic vol] 50.2 fL High 35.1-43.9 [facility] Erythrocyte distribution wid th ratioOrdered By: Dany Richardson on 10-09-2024 Erythrocyte distribution width (RBC) [Ratio] 15.9 % High 11.6-14.6 [facility] Erythrocyte distribution wid th ratioOrdered By: Shayna Malhotra on 10-09-2024 Erythrocyte distribution width (RBC) [Ratio] 15.7 % High 11.6-14.6 [facility] Erythrocyte distribution wid th standard deviationOrdered By: Shayna Malhotra on 10-09-2024 Erythrocyte distribution width (RBC) [Ratio] 50.2 fl High 35.1-43.9 [facility] Erythrocyte sedimentation ra teOrdered By: Missael Lomeli on 10-09-2024 ESR (Bld) [Velocity] 49 mm/h High 0-30 [facility] Estimation of creatinine silvana aranceOrdered By: Dany Richardson on 10-09-2024 Estimated Creatinine Clearance Calc 81.27 ml/min 50-250 [facility] Extremity Lower without Cont raon 10-09-2024 Extremity Lower without Contra [facility] Imaging Services [address] [place] [id number] Extremity Lower without Contra MR#: [id number] Acct: [id number] Name: VIDA NNIA Rep #: [id number] : 1950 F 73 From: Saul Sanchez MD PCP: Dr. Shayna Malhotra MD Status: ADM IN Study: Extremity Lower without Contra Date of Exam: 0 10/09/24 Exam# [id number] Ordering Dr: Missael Hernandez DO PROCEDURE: EXTREMITY [...] Hernandez at 2:20 a.m. 10/10/2024 Reading Location: [facility] CC: Dr. Missael Hernandez DO; Dr. Shayna Malhotra MD Fine Arts Chair: Signed Normal [facility] Foot min 3 Viewson 5 Foot min 3 Views [facility] Imaging Services [address] [place] [address] Foot min 3 Views MR#: [id number] Acct: [id number] Name: VIDA NINA Rep #: [id number] : 1950 F 73 From: Alok Jiménez MD PCP: Dr. Shayna Malhotra MD Status: REG ER Study: Foot min 3 Views Date of Exam: 10/09/24 Exam# [id number] Ordering Dr: Dany Richardson MD EXAM: LEFT [...] Dany Richardson MD; Dr. Shayna Malhotra MD Fine Arts Chair: Signed Normal [facility] GFR/1.73 sq M.predicted saida g non-blacks MDRD (S/P/Bld) [Vol rate/Area]Ordered By: Dany Richardson on 10-09-2024 Estimated GFR (MDRD) Non-Af Amer 70 >60 [facility] Comment on above: mL/min/1.73m2 CKD-EP I Creatinine Equation (2020) GFR/1.73 sq M.predicted saida g non-blacks MDRD (S/P/Bld) [Vol rate/Area]Ordered By: Shayna Malhotra on 10-09-2024 Estimated GFR (MDRD) Non-Af Amer 76 >60 [facility] Comment on above: mL/min/1.73m2 CKD-EP I Creatinine Equation (2020) Glomerular filtration rate ( GFR) estimation/1.73 sq m using serum, plasma, or whole bOrdered By: Shayna Malhotra on 10-09-2024 GFR/1.73 sq M.predicted among non-blacks MDRD (S/P/Bld) [Vol rate/Area] 76 mL/min/{1.73_m2} >60 [facility] Comment on above: mL/min/1.73m2 CKD-EP I Creatinine Equation (2020) Glucose Ql (U)Ordered By: Nolan Richardson on 10-09-2024 Glucose (U) [Mass/Vol] 1000 mg/dL High Normal [facility] H AND P Exam - Hospitaliston 10-09-2024 H&P Exam - Hospitalist [facility] Medical Records Department [address] [place] [address] H P Exam - Hospitalist 10/09/242118 MR#: [id number] Acct: [id number] Name: VIDA NINA Rep #: [id number] : 1950 73 From: Missael Hernandez DO PCP: Dr. Shayna Malhotra MD Status:ADM IN [place] [facility] [id number] HPI - General General Date of Admission: [...] is currently residing in assisted living at [facility] presents to [facility] ER complaining of worsening Left heel [...] folds and extremely poor hygiene with [employer] having social work consulted and patient felt [...] is expected to extend beyond 2 midnights. [facility] Medical History Obesity Anxiety Cancer Anxiety Diabetes [...] topical TID #0 grams Unknown Rx powder ([facility]) quetiapine 100 mg tablet 300 mg (3 x 100 mg) PO BID #0 tabs 11/24/21 Unknown Rx aspirin 81 mg chewable tablet 81 mg PO DAILY 05/06/22 Unknown Hi (more content not included)... Normal [facility] Hematocrit Auto (Bld) [Volum e fraction]Ordered By: Dany Richardson on 10-09-2024 Hematocrit (Bld) [Volume fraction] 40.8 % [address] Hematocrit Auto (Bld) [Volum e fraction]Ordered By: Shayna Malhotra on 10-09-2024 Hematocrit (Bld) [Volume fraction] 40.9 % [address] [place] [address] Hemoglobin A1con 10-09-2024 HbA1c (Bld) [Mass fraction] 7.2 % High <=5.6 [facility] Comment on above: Order Comment: 134 Result Comment: Norm al < 5.7 % Prediabetic 5.7 - 6.4 % Diabetic >or= 6.5 % Please note range changes. Performed By: #### L 501.080 #### [facility] [address] [place], [place] [address] [place], [place], [id number] Hemoglobin A1c percentageOrd ered By: Missael Lomeli on 10-09-2024 HbA1c (Bld) [Mass fraction] 7.2 % High <5.7 [facility] Comment on above: Normal < 5.7 % Predi abetic 5.7 - 6.4 % Diabetic >or= 6.5 % Please note range changes. Hemoglobin A1c percentageOrd ered By: Shayna Malhotra on 10-09-2024 HbA1c (Bld) [Mass fraction] 7.2 % High <5.7 [facility] Comment on above: Normal < 5.7 % Predi abetic 5.7 - 6.4 % Diabetic >or= 6.5 % Please note range changes. Hemoglobin measurementOrdere d By: Dany Richardson on 10-09-2024 Hemoglobin (Bld) [Mass/Vol] 13.5 g/dL 12.0-15.0 [facility] Hemoglobin measurementOrdere d By: Shayna Malhotra on 10-09-2024 Hemoglobin (Bld) [Mass/Vol] 13.5 g/dL 12.0-15.0 [facility] Immature granulocytes/100 WB C Auto (Bld)Ordered By: Dany Richardson on 10-09-2024 Immature granulocytes/100 WBC (Bld) 0.400 % 0.0-0.9 [facility] Comment on above: IG% - Immature Granu locytes (promyelocytes, myelocytes and metamyelocytes) > 1% indicates that a LEFT SHIFT is Present. Immature granulocytes/100 WB C Auto (Bld)Ordered By: Shayna Malhotra on 10-09-2024 Immature granulocytes/100 WBC (Bld) 0.300 % 0.0-0.9 [facility] Comment on above: IG% - Immature Granu locytes (promyelocytes, myelocytes and metamyelocytes) > 1% indicates that a LEFT SHIFT is Present. Ketones Test strip Ql (U)Ord ered By: Dany Richardson on 10-09-2024 Ketones Ql (U) Negative Negative [facility] Laboratory - Chemistry and C hemistry - challengeOrdered By: Dany Richardson on 10-09-2024 AST [Catalytic activity/Vol] 40 U/L High <32 [facility] Comment on above: Hemolysis present, R esults could be affected. Laboratory - Chemistry and C hemistry - challengeOrdered By: Shayna Malhotra on 10-09-2024 AST [Catalytic activity/Vol] 37 U/L High <32 [facility] Lymphocytes Auto (Unsp spec) [#/Vol]Ordered By: Dany Richardson on 10-09-2024 Lymphocytes (Bld) [#/Vol] 1.11 10*3/uL 0.83-4.51 [facility] Lymphocytes Auto (Unsp spec) [#/Vol]Ordered By: Shayna Malhotra on 10-09-2024 Lymphocytes (Bld) [#/Vol] 0.97 10*3/uL 0.83-4.51 [facility] Lymphocytes/100 WBC Auto (Un sp spec)Ordered By: Dany Richardson on 10-09-2024 Lymphocytes/100 WBC (Bld) 16.3 % Low 19-41 [facility] Lymphocytes/100 WBC Auto (Un sp spec)Ordered By: Shayna Malhotra on 10-09-2024 Lymphocytes/100 WBC (Bld) 16.1 % Low 19-41 [facility] MCV (mean corpuscular volume ) determinationOrdered By: Dany Richardson on 10-09-2024 MCV (RBC) [Entitic vol] 87.4 fL 81-99 [facility] MCV (mean corpuscular volume ) determinationOrdered By: Shayna Malhotra on 10-09-2024 MCV (RBC) [Entitic vol] 87.4 fL 81-99 [facility] Magnesiumon 10-09-2024 Magnesium [Mass/Vol] 2.1 mg/dL Normal 1.5-2.2 [facility] Comment on above: Performed By: #### L 503.0106 #### [facility] [address] [place] [address], [address] Mean corpuscular hemoglobin (MCH) determinationOrdered By: Dany Richardson on 10-09-2024 MCH (RBC) [Entitic mass] 28.9 pg 27.0-32.0 [facility] Mean corpuscular hemoglobin (MCH) determinationOrdered By: Shayna Malhotra on 10-09-2024 MCH (RBC) [Entitic mass] 28.8 pg 27.0-32.0 [facility] Mean corpuscular hemoglobin concentration (MCHC) determinationOrdered By: Dany Richardson on 10-09-2024 MCHC (RBC) [Mass/Vol] 33.1 g/dL [facility] Mean corpuscular hemoglobin concentration (MCHC) determinationOrdered By: Shayna Malhotra on 10-09-2024 MCHC (RBC) [Mass/Vol] 33.0 g/dL [facility] Mean platelet volume determi nationOrdered By: Dany Richardson on 10-09-2024 Platelet mean volume (Bld) [Entitic vol] 11.8 fL 6.2-12.0 [facility] Mean platelet volume determi nationOrdered By: Shayna Malhotra on 10-09-2024 Platelet mean volume (Bld) [Entitic vol] 10.8 fL 6.2-12.0 [facility] Microscopic analysis of urin e for red blood cells (RBC)Ordered By: Dany Richardson on 10-09-2024 Microscopic analysis of urine for red blood cells (RBC) 10-25 SEEN /hpf 0-5 [facility] Urine RBC 10-25 SEEN /hpf 0-5 [facility] Monocyte percentageOrdered B y: Dany Richardson on 10-09-2024 Monocytes/100 WBC (Bld) 8.3 % 0-10 [facility] Monocyte percentageOrdered B y: Shayna Malhotra on 10-09-2024 Monocytes/100 WBC (Bld) 8.4 % 0-10 [facility] Mucus LM Ql (Urine sed)Order ed By: Dany Richardson on 10-09-2024 Mucus Ql (Urine sed) 0 SEEN /hpf [facility] Neutrophil percentageOrdered By: Dany Richardson on 10-09-2024 Neutrophils/100 WBC (Bld) 72.1 % High 47-70 [facility] Neutrophil percentageOrdered By: Shayna Malhotra on 10-09-2024 Neutrophils/100 WBC (Bld) 73.5 % High 47-70 [facility] Nitrite Test strip Ql (U)Ord ered By: Dany Richardson on 10-09-2024 Nitrite Ql (U) Negative Negative [facility] No Panel InformationOrdered By: Missael Lomeli on 10-09-2024 Urine Buprenorphine Qualitative Negative < 200 ng/mL [facility] Urine Oxycodone Screen Negative < 100 ng/mL [facility] Nucleated red blood cell per centageOrdered By: Dany Richardson on 10-09-2024 Nucleated RBC/100 WBC (Bld) [Ratio] 0 % 0-5 [facility] Nucleated red blood cell per centageOrdered By: Shayna Malhotra on 10-09-2024 Nucleated RBC/100 WBC (Bld) [Ratio] 0 % 0-5 [facility] Platelet countOrdered By: Nolan Richardson on 10-09-2024 Platelets (Bld) [#/Vol] 106 10*3/uL Low 150-450 [facility] Platelet countOrdered By: Maryanne Malhotra on 10-09-2024 Platelets (Bld) [#/Vol] 107 10*3/uL Low 150-450 [facility] Potassium (Unsp spec) [Mass/ Vol]Ordered By: Dany Richardson on 10-09-2024 Potassium [Moles/Vol] 4.5 mmol/L 3.3-5.1 [facility] Comment on above: Hemolysis present, R esults could be affected. Potassium (Unsp spec) [Mass/ Vol]Ordered By: Shayna Malhotra on 10-09-2024 Potassium [Moles/Vol] 4.2 mmol/L 3.3-5.1 [facility] Potassium measurement (mass/ volume)Ordered By: Shayna Malhotra on 10-09-2024 Potassium (Unsp spec) [Mass/Vol] 4.2 mmol/L 3.3-5.1 [facility] Protein Test strip Ql (U)Ord ered By: Dany Richardson on 10-09-2024 Protein Ql (U) 30 mg/dl High Negative [facility] Quantitative urine opiates m easurementOrdered By: Missael Lomeli on 10-09-2024 Opiates Ql (U) Negative < 300 ng/mL [facility] RBC Auto (Bld) [#/Vol]Ordere d By: Dany Richardson on 10-09-2024 RBC (Bld) [#/Vol] 4.67 10*6/uL 4.2-5.[address] [facility] RBC Auto (Bld) [#/Vol]Ordere d By: Shayna Malhotra on 10-09-2024 RBC (Bld) [#/Vol] 4.68 10*6/uL 4.2-5.[address] [facility] Screening urine fentanyl renay surementOrdered By: Missael Lomeli on 10-09-2024 fentaNYL Screen Ql (U) Negative [facility] Serum creatinine measurement (mass/volume)Ordered By: Dany Richardson on 10-09-2024 Creatinine [Mass/Vol] 0.88 mg/dL 0.70-1.20 [facility] Serum creatinine measurement (mass/volume)Ordered By: Shayna Malhotra on 10-09-2024 Creatinine [Mass/Vol] 0.82 mg/dL 0.70-1.20 [facility] Serum globulin measurementOr dered By: Dany Richardson on 10-09-2024 Globulin (S) [Mass/Vol] 4.6 g/dL High 2.2-4.2 [facility] Serum globulin measurementOr dered By: Shayna Malhotra on 10-09-2024 Globulin (S) [Mass/Vol] 4.8 g/dL High 2.2-4.2 [facility] Serum glucose measurement (m ass/volume)Ordered By: Dany Richardson on 10-09-2024 Glucose [Mass/Vol] 138 mg/dL High 70-99 [facility] Serum glucose measurement (m ass/volume)Ordered By: Shayna Malhotra on 10-09-2024 Glucose [Mass/Vol] 173 mg/dL High 70-99 [facility] Serum or plasma C reactive p rotein measurement (mass/volume)Ordered By: Missael Lomeli on 10-09-2024 CRP [Mass/Vol] 5.92 mg/L High 0.0-3.0 [facility] Serum or plasma alanine burnette otransferase (ALT) measurementOrdered By: Dany Richardson on 10-09-2024 ALT [Catalytic activity/Vol] 23 U/L <35 [facility] Serum or plasma alanine burnette otransferase (ALT) measurementOrdered By: Shayna Malhotra on 10-09-2024 ALT [Catalytic activity/Vol] 26 U/L <35 [facility] Serum or plasma albumin kim urement (mass/volume)Ordered By: Dany Richardson on 10-09-2024 Albumin [Mass/Vol] 3.8 g/dL 3.4-4.8 [facility] Serum or plasma albumin kim urement (mass/volume)Ordered By: Shayna Malhotra on 10-09-2024 Albumin [Mass/Vol] 4.0 g/dL 3.4-4.8 [facility] Serum or plasma albumin/glob ulin mass ratioOrdered By: Dany Richardson on 10-09-2024 Albumin/Globulin [Mass ratio] 0.8 {ratio} Low 0.9-2.4 [facility] Serum or plasma albumin/glob ulin mass ratioOrdered By: Shayna Malhotra on 10-09-2024 Albumin/Globulin [Mass ratio] 0.8 {ratio} Low 0.9-2.4 [facility] Serum or plasma alkaline regina sphatase measurementOrdered By: Dany Richardson on 10-09-2024 ALP [Catalytic activity/Vol] 135 U/L High [facility] Serum or plasma alkaline regina sphatase measurementOrdered By: Shayna Malhotra on 10-09-2024 ALP [Catalytic activity/Vol] 148 U/L High - [facility] Serum or plasma calcium kim urement (mass/volume)Ordered By: Dany Richardson on 10-09-2024 Calcium [Mass/Vol] 9.7 mg/dL 7.6-11.0 [facility] Serum or plasma calcium kim urement (mass/volume)Ordered By: Shayna Malhotra on 10-09-2024 Calcium [Mass/Vol] 9.6 mg/dL 7.6-11.0 [facility] Serum or plasma ethanol kim urement (mass/volume)Ordered By: Missael Lomeli on 10-09-2024 Ethanol [Mass/Vol] mg/dL <10.1 [facility] Comment on above: This test is for med ical purposes only. The legal definition of intoxication varies according to local law. Serum or plasma urea nitroge n measurement (mass/volume)Ordered By: Dany Richardson on 10-09-2024 Urea nitrogen [Mass/Vol] 23 mg/dL High 09-22 [facility] Serum or plasma urea nitroge n measurement (mass/volume)Ordered By: Shayna Malhotra on 10-09-2024 Urea nitrogen [Mass/Vol] 21 mg/dL High 09-22 [facility] Sodium levelOrdered By: Dany Richardson on 10-09-2024 Sodium [Moles/Vol] 138 mmol/L 133-145 [facility] Sodium levelOrdered By: Paty Malhotra on 10-09-2024 Sodium [Moles/Vol] 138 mmol/L 133-145 [facility] Squamous epithelial cells de tection in urine sediment by light microscopyOrdered By: Dany Richardson on 10-09-2024 Epithelial cells.squamous LM Ql (Urine sed) 0-5 SEEN /hpf 5-10 [facility] TSH DL <= 0.005 mIU/L QnOrde red By: Missael Lomeli on 10-09-2024 TSH Qn 4.730 uIU/mL High 0.300-4.20 0 [facility] Thyroid Stim Hormone (TSH)on 10-09-2024 TSH 4.730 uIU/mL High 0.300-4.20 0 [facility] Comment on above: Performed By: #### L 503.0106 #### [facility] [address] [place], [address] Total proteinOrdered By: Treasure Richardson on 10-09-2024 Protein [Mass/Vol] 8.4 g/dL 5.9-8.4 [facility] Total proteinOrdered By: Evi Malhotra on 10-09-2024 Protein [Mass/Vol] 8.9 g/dL High 5.9-8.4 [facility] Transitional cells LM Ql (Ur ine sed)Ordered By: Dany Richardson on 10-09-2024 Urine Transitional Epithelial Cells 0-5 SEEN /hpf 0-5 [facility] Transitional cells detection in urine sediment by light microscopyOrdered By: Dany Richardson on 10-09-2024 Transitional cells LM Ql (Urine sed) 0-5 SEEN /hpf 0-5 [facility] Urinalysis, Completeon 10-09 AMORPHOUS 1+ Normal [facility] Comment on above: Order Comment: JOSE L CTOR TO SPECIFY Performed By: #### L 503.0106 #### [facility] [address] [place], [address] EPI,SQUAMOUS 0-5 SEEN Normal 5-10 [facility] Comment on above: Order Comment: JOSE L CTOR TO SPECIFY Performed By: #### L 503.0106 #### [facility] [address] [place], [address] EPI,TRANSITION 0-5 SEEN Normal 0-5 [facility] Comment on above: Order Comment: COLLE CTOR TO SPECIFY Performed By: #### L 503.0106 #### [facility] [address] [place], [address] RBC 10-25 SEEN Normal 0-5 [facility] Comment on above: Order Comment: COLLE CTOR TO SPECIFY Performed By: #### L 503.0106 #### [facility] [address] [place], [address] BACTERIA 4+ /hpf Normal None Seen [facility] Comment on above: Order Comment: JOSE L CTOR TO SPECIFY Performed By: #### L 503.0106 #### [facility] [address] [place], [address] WBC >100 SEEN Normal 0-5 [facility] Comment on above: Order Comment: JOSE L CTOR TO SPECIFY Performed By: #### L 503.0106 #### [facility] [address] [place], [address] Mucus Ql (Urine sed) 0 SEEN Normal [facility] Comment on above: Order Comment: JOSE L CTOR TO SPECIFY Performed By: #### L 503.0106 #### [facility] [address] [place], [address] Urine Drug Screen (VISTA)on 10-09-2024 AMPHETAMINES Negative Normal <1000 ng/mL [facility] Comment on above: Order Comment: UNK Performed By: #### L 503.0106 #### [facility] [address] [place], [address] BARBITIURATES Negative Normal < 200 ng/mL [facility] Comment on above: Order Comment: UNK Performed By: #### L 503.0106 #### [facility] [address] [place], [address] BENZODIAZIPINE Negative Normal < 200 ng/mL [facility] Comment on above: Order Comment: UNK Performed By: #### L 503.0106 #### [facility] [address] [place], [address] BUP Ur Drug Scr Negative Normal < 200 ng/mL [facility] Comment on above: Order Comment: UNK Performed By: #### L 503.0106 #### [facility] [address] [place], [address] COCAINE Negative Normal < 300 ng/mL [facility] Comment on above: Order Comment: UNK Performed By: #### L 503.0106 #### [facility] [address] [place], [address] Fentanyl Negative Normal [facility] Comment on above: Order Comment: UNK Performed By: #### L 503.0106 #### [facility] [address] [place], [address] METHADONE Negative Normal < 300 ng/mL [facility] Comment on above: Order Comment: UNK Performed By: #### L 503.0106 #### [facility] [address] [place], [address] OPIATES Negative Normal < 300 ng/mL [facility] Comment on above: Order Comment: UNK Performed By: #### L 503.0106 #### [facility] [address] [place], [address] OXYCODONE Negative Normal < 100 ng/mL [facility] Comment on above: Order Comment: UNK Performed By: #### L 503.0106 #### [facility] [address] [place], [address] PCP Negative Normal < 25 ng/mL [facility] Comment on above: Order Comment: UNK Performed By: #### L 503.0106 #### [facility] [address] [place], [place], [address] THC Negative Normal < 50 ng/mL [facility] Comment on above: Order Comment: UNK Performed By: #### L 503.0106 #### [facility] [address] [place], [place], [id number] Urine benzodiazepine levelOr dered By: Missael Lomeli on 10-09-2024 Benzodiazepines Ql (U) Negative < 200 ng/mL [facility] Urine blood detectionOrdered By: Dany Richardson on 10-09-2024 Urine Occult Blood 150 /ul High Negative [facility] Urine clarityOrdered By: Treasure Richardson on 10-09-2024 Clarity (U) Cloudy Clear [facility] Urine cocaine levelOrdered B y: Missael Lomeli on 10-09-2024 Cocaine Ql (U) Negative < 300 ng/mL [facility] Urine color determinationOrd ered By: Dany Richardson on 10-09-2024 Color (U) Yellow Yellow [facility] Urine byjnb-3-capjfoolozhabh abinol (THC) measurementOrdered By: Missael Lomeli on 10-09-2024 Cannabinoids Screen Ql (U) Negative < 50 ng/mL [facility] Urine glucose detectionOrder ed By: Dany Richardson on 10-09-2024 Glucose Ql (U) 1000 mg/dl High Normal [facility] Urine leukocyte esterase det ection by dipstickOrdered By: Dany Richardson on 10-09-2024 Leukocyte esterase Test strip Ql (U) 100 /ul High Negative [facility] Urine pHOrdered By: Dany chung on 10-09-2024 pH (U) 5.0 [pH] 5.0 - 8.0 [facility] Urine phencyclidine (PCP) de tectionOrdered By: Missael Lomeli on 10-09-2024 Phencyclidine Ql (U) Negative < 25 ng/mL [facility] Urine sediment bacteria coun t by microscopy (number/high power field)Ordered By: Dany Richardson on 10-09-2024 Bacteria LM.HPF (Urine sed) [#/Area] 4 /[HPF] None Seen [facility] Urine specific gravity measu rementOrdered By: Dany Beltránkaren on 10-09-2024 Specific gravity (U) [Rel density] 1.020 1.002-1.03 0 [facility] Urine urobilinogen measureme ntOrdered By: Dany Rochelleshruthi on 10-09-2024 Urobilinogen Ql (U) 1 mg/dl High Normal [facility] Urobilinogen Ql (U)Ordered B y: Dany Richardson on 10-09-2024 Urobilinogen (U) [Mass/Vol] 1 mg/dL High Normal [facility] Vitamin B12on 10-09-2024 Cobalamin (Vitamin B12) [Mass/Vol] 379 pg/mL Normal 180-914 [facility] Comment on above: Performed By: #### L 503.0106 #### [facility] [address] [place], [place], [id number] Vitamin B12 ser/plasOrdered By: Missael Lomeli on 10-09-2024 Cobalamin (Vitamin B12) [Mass/Vol] 379 pg/mL 180-914 [facility] Vitamin D, 25-hydroxyOrdered By: Shayna Malhotra on 10-09-2024 Vitamin D 25-Hydroxy 30.0 ng/mL 30-100 [facility] Comment on above: Vitamin D StatusDefi ciency: <20 ng/mL (50nmol/L)Insufficiency: 20-30 ng/mL (50-75 nmol/L)Sufficiency: 30-100 ng/mL (75-250 nmol/L)Toxicity: >100 ng/mL (>250 nmol/L) Vitamin D,25 Hydroxyon 10-09 Vitamin D 25-OH 30.0 ng/mL Normal 30-100 [facility] Comment on above: Order Comment: 134 Result Comment: [place] min D Status Deficiency: <20 ng/mL (50nmol/L) Insufficiency: 20-30 ng/mL (50-75 nmol/L) Sufficiency: 30-100 ng/mL (75-250 nmol/L) Toxicity: >100 ng/mL (>250 nmol/L) Performed By: #### L 501.080 #### [facility] [address] [place], [address] White blood cell (WBC) count Ordered By: Dany Richardson on 10-09-2024 WBC (Bld) [#/Vol] 6.8 10*3/uL 4.4-11.0 [facility] White blood cell (WBC) count Ordered By: Shayna Malhotra on 10-09-2024 WBC (Bld) [#/Vol] 6.0 10*3/uL 4.4-11.0 [facility] White blood cell countOrdere d By: Dany Richardson on 10-09-2024 Urine WBC >100 SEEN /hpf 0-5 [facility] White blood cell count >100 SEEN /hpf 0-5 [facility] CBC W/Diff, Automatedon Absolute Neut Normal 2.0-7.7 [facility] Comment on above: Order Comment: 134 Result Comment: UTO X2 Performed By: #### L 500.4050, L506.1000, L501.9985, L100.0100 #### [facility] [address] [place], [address] HCT Normal 37-47 [facility] Comment on above: Order Comment: 134 Result Comment: UTO X2 Performed By: #### L 500.4050, L506.1000, L501.9985, L100.0100 #### [facility] [address] [place], [address] HGB Normal 12.0-15.0 [facility] Comment on above: Order Comment: 134 Result Comment: UTO X2 Performed By: #### L 500.4050, L506.1000, L501.9985, L100.0100 #### [facility] [address] [place], [address] MCH Normal 27.0-32.0 [facility] Comment on above: Order Comment: 134 Result Comment: UTO X2 Performed By: #### L 500.4050, L506.1000, L501.9985, L100.0100 #### [facility] [address] [place], [address] MCHC Normal 32-36 [facility] Comment on above: Order Comment: 134 Result Comment: UTO X2 Performed By: #### L 500.4050, L506.1000, L501.9985, L100.0100 #### [facility] [facility] [address] [place], [address] MCV Normal 81-99 [facility] Comment on above: Order Comment: 134 Result Comment: UTO X2 Performed By: #### L 500.4050, L506.1000, L501.9985, L100.0100 #### [facility] [address] [place], [address] NEUT% Normal 47-70 [facility] Comment on above: Order Comment: 134 Result Comment: UTO X2 Performed By: #### L 500.4050, L506.1000, L501.9985, L100.0100 #### [facility] [address] [place], [address] PLT Normal 150-450 [facility] Comment on above: Order Comment: 134 Result Comment: UTO X2 Performed By: #### L 500.4050, L506.1000, [id number], L100.0100 #### [facility] [address] [place], [address] RBC Normal 4.2-5.4 [facility] Comment on above: Order Comment: 134 Result Comment: UTO X2 Performed By: #### L 500.4050, L506.1000, L501.9985, L100.0100 #### [facility] [address] [place], [address] RDW CV Normal 11.6-14.6 [facility] Comment on above: Order Comment: 134 Result Comment: UTO X2 Performed By: #### L 500.4050, L506.1000, [id number], L100.0100 #### [facility] [address] [place], [address] RDW SD Normal 35.1-43.9 [facility] Comment on above: Order Comment: 134 Result Comment: UTO X2 Performed By: #### L 500.4050, L506.1000, [id number], L100.0100 #### [facility] [address] [place], [address] WBC Normal 4.4-11.0 [facility] Comment on above: Order Comment: 134 Result Comment: UTO X2 Performed By: #### L 500.4050, L506.1000, L501.9985, L100.0100 #### [facility] [address] [place], [address] Comprehensive Metabolic Prof [facility] 10-08-2024 ALB Normal 3.4-4.8 [facility] Comment on above: Order Comment: 134 Result Comment: UTO X2 Performed By: #### L 500.4050, L506.1000, L501.9985, L100.0100 #### [facility] [address] [place], [address] ALK PHOS Normal 35-104 [facility] Comment on above: Order Comment: 134 Result Comment: UTO X2 Performed By: #### L 500.4050, L506.1000, L501.9985, L100.0100 #### [facility] [address] [place], [address] ALT Normal <=34 [facility] Comment on above: Order Comment: 134 Result Comment: UTO X2 Performed By: #### L 500.4050, L506.1000, L501.9985, L100.0100 #### [facility] [address] [place], [address] AST Normal <=31 [facility] Comment on above: Order Comment: 134 Result Comment: UTO X2 Performed By: #### L 500.4050, L506.1000, [id number], L100.0100 #### [facility] [address] [place], [address] BUN Normal 4-19 [facility] Comment on above: Order Comment: 134 Result Comment: UTO X2 Performed By: #### L 500.4050, L506.1000, L501.9985, L100.0100 #### [facility] [address] [place], [address] BUN/CRE Normal 10-20 [facility] Comment on above: Order Comment: 134 Result Comment: UTO X2 Performed By: #### L 500.4050, L506.1000, L501.9985, L100.0100 #### [facility] [address] [place], [address] Calcium Normal 7.6-11.0 [facility] Comment on above: Order Comment: 134 Result Comment: UTO X2 Performed By: #### L 500.4050, L506.1000, L501.9985, L100.0100 #### [facility] [address] [place], [address] CL Normal 98-108 [facility] Comment on above: Order Comment: 134 Result Comment: UTO X2 Performed By: #### L 500.4050, L506.1000, L501.9985, L100.0100 #### [facility] [address] [place], [address] CO2 Normal 21.0-32.0 [facility] Comment on above: Order Comment: 134 Result Comment: UTO X2 Performed By: #### L 500.4050, L506.1000, L501.9985, L100.0100 #### [facility] [address] [place], [address] CREAT,SERUM Normal 0.70-1.20 [facility] Comment on above: Order Comment: 134 Result Comment: UTO X2 Performed By: #### L 500.4050, L506.1000, L501.9985, L100.0100 #### [facility] [address] [place], [address] eGFR Normal >60 [facility] Comment on above: Order Comment: 134 Result Comment: UTO X2 Performed By: #### L 500.4050, L506.1000, L501.9985, L100.0100 #### [facility] [address] [place], [address] GAP Normal 5-15 [facility] Comment on above: Order Comment: 134 Result Comment: UTO X2 Performed By: #### L 500.4050, L506.1000, L501.9985, L100.0100 #### [facility] [address] [place], [address] GLU Normal 70-99 [facility] Comment on above: Order Comment: 134 Result Comment: UTO X2 Performed By: #### L 500.4050, L506.1000, L501.9985, L100.0100 #### [facility] [address] [place], [address] Potassium Normal 3.3-5.1 [facility] Comment on above: Order Comment: 134 Result Comment: UTO X2 Performed By: #### L 500.4050, L506.1000, L501.9985, L100.0100 #### [facility] [address] [place], [address] T BILI Normal 0.00-1.30 [facility] Comment on above: Order Comment: 134 Result Comment: UTO X2 Performed By: #### L 500.4050, L506.1000, L501.9985, L100.0100 #### [facility] [address] [place], [address] T PROT Normal 5.9-8.4 [facility] Comment on above: Order Comment: 134 Result Comment: UTO X2 Performed By: #### L 500.4050, L506.1000, L501.9985, L100.0100 #### [facility] [address] [place], [address] Comprehensive Metabolic Profil Normal 133-145 [facility] Comment on above: Order Comment: 134 Result Comment: UTO X2 Performed By: #### L 500.4050, L506.1000, L501.9985, L100.0100 #### [facility] [address] [place], [address] [id number] DOrdered By: Jean Malhotra on 07-09-2024 Vitamin D 25-Hydroxy 44.8 ng/mL [facility] Comment on above: Vitamin D 25(OH) Sta tus Range Deficiency <20 ng/mL (50nmol/L) Insufficiency 20 - 30 ng/mL (50 - 75 nmol/L) Sufficiency 30 - 100 ng/mL (75 - 250 nmol/L) Toxicity >100 ng/mL (>250 nmol/L) Absolute lymphocyte countOrd ered By: Shayna Malhotra on 07-09-2024 Lymphocytes Auto (Unsp spec) [#/Vol] 0.82 10*3/uL Low 0.83-4.51 [facility] Absolute neutrophil countOrd ered By: Shayna Malhotra on 07-09-2024 Neutrophils (Bld) [#/Vol] 2.6 10*3/uL 2.0-7.7 [facility] Albumin to globulin ratioOrd ered By: Shayna Malhotra on 07-09-2024 Albumin/Globulin [Mass ratio] 0.6 {ratio} Low 0.9-2.4 [facility] Automated lymphocyte count a s percentage of total leukocytesOrdered By: Shayna Malhotra on 07-09-2024 Lymphocytes/100 WBC Auto (Unsp spec) 20.2 % 19-41 [facility] Basophil percentageOrdered B y: Shayna Malhotra on 07-09-2024 Basophils/100 WBC (Bld) 1.0 % 0-1 [facility] Bilirubin, totalOrdered By: Shayna Malhotra on 07-09-2024 Bilirubin [Mass/Vol] 0.70 mg/dL 0.20-1.00 [facility] Comment on above: For patients on eltr ombopag therapy, use of Dimension [place] TBIL is not recommended. Blood urea nitrogen (BUN)/cr eatinine ratioOrdered By: Shayna Malhotra on 07-09-2024 Urea nitrogen/Creatinine [Mass ratio] 22.2 mg/mg High 10-20 [facility] CBC W/Diff, Automatedon Absolute Lymph 0.82 X10 3/uL Low 0.83-4.51 [facility] Comment on above: Order Comment: 134 Performed By: #### L 500.4050, L506.1000, L501.9985, L100.0100 #### [facility] [address] [place], [address] Absolute Neut 2.6 X10 3/uL Normal 2.0-7.7 [facility] Comment on above: Order Comment: 134 Performed By: #### L 500.4050, L506.1000, L501.9985, L100.0100 #### [facility] [address] [place], [address] Basophils/100 WBC (Bld) 1.0 % Normal 0-1 [facility] Comment on above: Order Comment: 134 Performed By: #### L 500.4050, L506.1000, L501.9985, L100.0100 #### [facility] [address] [place], [address] Eosinophils/100 WBC (Bld) 5.9 % High 0-5 [facility] Comment on above: Order Comment: 134 Performed By: #### L 500.4050, L506.1000, L501.9985, L100.0100 #### [facility] [address] [place], [address] Erythrocyte distribution width (RBC) [Ratio] 15.9 % High 11.6-14.6 [facility] Comment on above: Order Comment: 134 Performed By: #### L 500.4050, L506.1000, L501.9985, L100.0100 #### [facility] [address] [place], [address] Hematocrit (Bld) [Volume fraction] 38.2 % Normal 37-47 [facility] Comment on above: Order Comment: 134 Performed By: #### L 500.4050, L506.1000, L501.9985, L100.0100 #### [facility] [address] [place], [address] Hemoglobin (Bld) [Mass/Vol] 12.4 g/dL Normal 12.0-15.0 [facility] Comment on above: Order Comment: 134 Performed By: #### L 500.4050, L506.1000, L501.9985, L100.0100 #### [facility] [address] [place], [address] IG% 0.200 Normal 0.0-0.9 [facility] Comment on above: Order Comment: 134 Result Comment: IG% - Immature Granulocytes (promyelocytes, myelocytes and metamyelocytes) > 1% indicates that a LEFT SHIFT is Present. Performed By: #### L 500.4050, L506.1000, L501.9985, L100.0100 #### [facility] [address] [place], [address] Lymphocytes/100 WBC (Bld) 20.2 % Normal 19-41 [facility] Comment on above: Order Comment: 134 Performed By: #### L 500.4050, L506.1000, L501.9985, L100.0100 #### [facility] [address] [place], [address] MCH (RBC) [Entitic mass] 29.0 pg Normal 27.0-32.0 [facility] Comment on above: Order Comment: 134 Performed By: #### L 500.4050, L506.1000, L501.9985, L100.0100 #### [facility] [address] [place], [address] MCHC (RBC) [Mass/Vol] 32.5 g/dL Normal 32-36 [facility] Comment on above: Order Comment: 134 Performed By: #### L 500.4050, L506.1000, L501.9985, L100.0100 #### [facility] [address] [place], [address] MCV (RBC) [Entitic vol] 89.5 fL Normal 81-99 [facility] Comment on above: Order Comment: 134 Performed By: #### L 500.4050, L506.1000, L501.9985, L100.0100 #### [facility] [address] [place], [address] Monocytes/100 WBC (Bld) 9.6 % Normal 0-10 [facility] Comment on above: Order Comment: 134 Performed By: #### L 500.4050, L506.1000, L501.9985, L100.0100 #### [facility] [address] [place], [address] Neutrophils/100 WBC (Bld) 63.1 % Normal 47-70 [facility] Comment on above: Order Comment: 134 Performed By: #### L 500.4050, L506.1000, L501.9985, L100.0100 #### [facility] [address] [place], [address] Nucleated RBC (Bld) [#/Vol] 0 10*3/uL Normal 0-5 [facility] Comment on above: Order Comment: 134 Performed By: #### L 500.4050, L506.1000, L501.9985, L100.0100 #### [facility] [address] [place], [address] Platelet mean volume (Bld) [Entitic vol] 11.0 fL Normal 6.2-12.0 [facility] Comment on above: Order Comment: 134 Performed By: #### L 500.4050, L506.1000, L501.9985, L100.0100 #### [facility] [address] [place], [address] Platelets (Bld) [#/Vol] 116 10*3/uL Low 150-450 [facility] Comment on above: Order Comment: 134 Performed By: #### L 500.4050, L506.1000, L501.9985, L100.0100 #### [facility] [address] [place], [address] RBC (Bld) [#/Vol] 4.27 10*6/uL Normal 4.2-5.[address] [facility] Comment on above: Order Comment: 134 Performed By: #### L 500.4050, L506.1000, L501.9985, L100.0100 #### [facility] [address] [place], [address] RDW SD 52.1 fl High 35.1-43.9 [facility] Comment on above: Order Comment: 134 Performed By: #### L 500.4050, L506.1000, L501.9985, L100.0100 #### [facility] [address] [place], [address] WBC (Bld) [#/Vol] 4.1 10*3/uL Low 4.4-11.0 [facility] Comment on above: Order Comment: 134 Performed By: #### L 500.4050, L506.1000, L501.9985, L100.0100 #### [facility] [address] [place], [address] Carbon dioxide measurementOr dered By: Shayna Malhotra on 07-09-2024 CO2 [Moles/Vol] 25.0 mmol/L 21.0-32.0 [facility] Chloride measurementOrdered By: Shayna Malhotra on 07-09-2024 Chloride [Moles/Vol] 107 mmol/L 98-107 [facility] Comprehensive Metabolic Prof ilon 07-09-2024 Albumin [Mass/Vol] 3.1 g/dL Low 3.2-5.0 [facility] Comment on above: Order Comment: 134 Performed By: #### L 500.4050, L506.1000, L501.9985, L100.0100 #### [facility] [address] [place], [address] Albumin/Globulin [Mass ratio] 0.6 {ratio} Low 0.9-2.4 [facility] Comment on above: Order Comment: 134 Performed By: #### L 500.4050, L506.1000, L501.9985, L100.0100 #### [facility] [address] [place], [address] ALK P 126 U/L High 45-117 [facility] Comment on above: Order Comment: 134 Performed By: #### L 500.4050, L506.1000, L501.9985, L100.0100 #### [facility] [address] [place], [address] ALT [Catalytic activity/Vol] 27 U/L Normal 13-56 [facility] Comment on above: Order Comment: 134 Performed By: #### L 500.4050, L506.1000, L501.9985, L100.0100 #### [facility] [address] [place], [address] AST [Catalytic activity/Vol] 35 U/L Normal 15-37 [facility] Comment on above: Order Comment: 134 Performed By: #### L 500.4050, L506.1000, L501.9985, L100.0100 #### [facility] [address] [place], [address] Bilirubin [Mass/Vol] 0.70 mg/dL Normal 0.20-1.00 [facility] Comment on above: Order Comment: 134 Result Comment: For patients on eltrombopag therapy, use of Dimension [place] TBIL is not recommended. Performed By: #### L 500.4050, L506.1000, L501.9985, L100.0100 #### [facility] [address] [place], [address] BUN/CRE 22.2 RATIO High 10-20 [facility] Comment on above: Order Comment: 134 Performed By: #### L 500.4050, L506.1000, L501.9985, L100.0100 #### [facility] [address] [place], [address] CA,Total 9.3 mg/dL Normal 8.5-10.1 [facility] Comment on above: Order Comment: 134 Performed By: #### L 500.4050, L506.1000, L501.9985, L100.0100 #### [facility] [address] [place], [address] Chloride [Moles/Vol] 107 mmol/L Normal 98-107 [facility] Comment on above: Order Comment: 134 Performed By: #### L 500.4050, L506.1000, L501.9985, L100.0100 #### [facility] [address] [place], [address] CO2 [Moles/Vol] 25.0 mmol/L Normal 21.0-32.0 [facility] Comment on above: Order Comment: 134 Performed By: #### L 500.4050, L506.1000, L501.9985, L100.0100 #### [facility] [address] [place], [address] Creatinine [Mass/Vol] 0.76 mg/dL Normal 0.55-1.02 [facility] Comment on above: Order Comment: 134 Result Comment: The validity of the calculated GFR GFRAA in patients over 70 years has not been determined. Clinical correlation is essential. Performed By: #### L 500.4050, L506.1000, L501.9985, L100.0100 #### [facility] [address] [place], [address] EST GFR - AA 96 mL/min Normal >60 [facility] Comment on above: Order Comment: 134 Result Comment: Afri can French GFR Calc Performed By: #### L 500.4050, L506.1000, L501.9985, L100.0100 #### [facility] [address] [place], [address] GAP 5 Normal 5-15 [facility] Comment on above: Order Comment: 134 Performed By: #### L 500.4050, L506.1000, L501.9985, L100.0100 #### [facility] [address] [place], [address] GFR/1.73 sq M.predicted among non-blacks MDRD (S/P/Bld) [Vol rate/Area] 79 mL/min/{1.73_m2} Normal >60 [facility] Comment on above: Order Comment: 134 Result Comment: Non- GFR Calc Performed By: #### L 500.4050, L506.1000, L501.9985, L100.0100 #### [facility] [address] [place], [address] Globulin (S) [Mass/Vol] 4.9 g/dL High 2.2-4.2 [facility] Comment on above: Order Comment: 134 Performed By: #### L 500.4050, L506.1000, L501.9985, L100.0100 #### [facility] [address] [place], [address] Glucose [Mass/Vol] 168 mg/dL High 74-106 [facility] Comment on above: Order Comment: 134 Result Comment: Fast ing Glucose result greater than or equal to 126 mg/dL suggests DIABETES MELLITUS per A.D.A. criteria. Performed By: #### L 500.4050, L506.1000, L501.9985, L100.0100 #### [facility] [address] [place], [address] Potassium [Moles/Vol] 4.2 mmol/L Normal 3.5-5.1 [facility] Comment on above: Order Comment: 134 Performed By: #### L 500.4050, L506.1000, L501.9985, L100.0100 #### [facility] [address] [place], [address] Sodium [Moles/Vol] 137 mmol/L Normal 136-145 [facility] Comment on above: Order Comment: 134 Performed By: #### L 500.4050, L506.1000, L501.9985, L100.0100 #### [facility] [address] [place], [address] T PROT 8.0 g/dL Normal 6.4-8.2 [facility] Comment on above: Order Comment: 134 Performed By: #### L 500.4050, L506.1000, L501.9985, L100.0100 #### [facility] [address] [place], [address] Urea nitrogen [Mass/Vol] 17 mg/dL Normal 7-18 [facility] Comment on above: Order Comment: 134 Performed By: #### L 500.4050, L506.1000, L501.9985, L100.0100 #### [facility] [address] [place], [address] Eosinophil percentageOrdered By: Shayna Malhotra on 07-09-2024 Eosinophils/100 WBC (Bld) 5.9 % High 0-5 [facility] Erythrocyte distribution wid th (RBC) [Ratio]Ordered By: Shayna Malhotra on 07-09-2024 Erythrocyte distribution width (RBC) [Entitic vol] 52.1 fL High 35.1-43.9 [facility] Erythrocyte distribution wid th ratioOrdered By: Shayna Malhotra on 07-09-2024 Erythrocyte distribution width (RBC) [Ratio] 15.9 % High 11.6-14.6 [facility] Erythrocyte distribution wid th standard deviationOrdered By: Shayna Malhotra on 07-09-2024 Erythrocyte distribution width (RBC) [Ratio] 52.1 fl High 35.1-43.9 [facility] Estimated glomerular filtrat ion rate (GFR) AmericanOrdered By: Shayna Malhotra on 07-09-2024 Estimated GFR (MDRD) Amer 96 mL/min >60 [facility] Comment on above: GFR Calc Glomerular filtration rate ( GFR) estimationOrdered By: Shayna Malhotra on 07-09-2024 Estimated GFR (MDRD) Non-Af Amer 79 mL/min >60 [facility] Comment on above: Non- GFR Calc GFR/1.73 sq M.predicted among non-blacks MDRD (S/P/Bld) [Vol rate/Area] 79 mL/min/{1.73_m2} >60 [facility] Comment on above: Non- GFR Calc Glucose measurementOrdered B y: Shayna Malhotra on 07-09-2024 Glucose [Mass/Vol] 168 mg/dL High 74-106 [facility] Comment on above: Fasting Glucose resu lt greater than or equal to 126 mg/dL suggests DIABETES MELLITUS per A.D.A. criteria. Hematocrit Auto (Bld) [Volum e fraction]Ordered By: Shayna Malhotra on 07-09-2024 Hematocrit (Bld) [Volume fraction] 38.2 % 37-47 [facility] Hemoglobin A1con 07-09-2024 HbA1c (Bld) [Mass fraction] 6.6 % High 3.8-5.6 [facility] Comment on above: Order Comment: 134 Result Comment: Norm al < 5.7 % Prediabetic 5.7 - 6.4 % Diabetic >or= 6.5 % Please note range changes. Performed By: #### L 500.4050, L506.1000, L501.9985, L100.0100 #### [facility] [address] [place], [address] Hemoglobin A1c percentageOrd ered By: Shayna Malhotra on 07-09-2024 HbA1c (Bld) [Mass fraction] 6.6 % High 3.8-5.6 [facility] Comment on above: Normal < 5.7 % Predi abetic 5.7 - 6.4 % Diabetic >or= 6.5 % Please note range changes. Hemoglobin measurementOrdere d By: Shayna Malhotra on 07-09-2024 Hemoglobin (Bld) [Mass/Vol] 12.4 g/dL 12.0-15.0 [facility] Immature granulocytes/100 WB C Auto (Bld)Ordered By: Shayna Malhotra on 07-09-2024 Immature granulocytes/100 WBC (Bld) 0.200 % 0.0-0.9 [facility] Comment on above: IG% - Immature Granu locytes (promyelocytes, myelocytes and metamyelocytes) > 1% indicates that a LEFT SHIFT is Present. Laboratory - Chemistry and C hemistry - challengeOrdered By: Shayna Malhotra on 07-09-2024 AST [Catalytic activity/Vol] 35 U/L 15-37 [facility] Lymphocytes Auto (Unsp spec) [#/Vol]Ordered By: Shayna Malhotra on 07-09-2024 Lymphocytes (Bld) [#/Vol] 0.82 10*3/uL Low 0.83-4.51 [facility] Lymphocytes/100 WBC Auto (Un sp spec)Ordered By: Shayna Malhotra on 07-09-2024 Lymphocytes/100 WBC (Bld) 20.2 % 19-41 [facility] MCV (mean corpuscular volume ) determinationOrdered By: Shayna Malhotra on 07-09-2024 MCV (RBC) [Entitic vol] 89.5 fL 81-99 [facility] Mean corpuscular hemoglobin (MCH) determinationOrdered By: Shayna Malhotra on 07-09-2024 MCH (RBC) [Entitic mass] 29.0 pg 27.0-32.0 [facility] Mean corpuscular hemoglobin concentration (MCHC) determinationOrdered By: Shayna Malhotra on 07-09-2024 MCHC (RBC) [Mass/Vol] 32.5 g/dL 32-36 [facility] Mean platelet volume determi nationOrdered By: Shayna Malhotra on 07-09-2024 Platelet mean volume (Bld) [Entitic vol] 11.0 fL 6.2-12.0 [facility] Monocyte percentageOrdered B y: Shayna Malhotra on 07-09-2024 Monocytes/100 WBC (Bld) 9.6 % 0-10 [facility] Neutrophil percentageOrdered By: Shayna Malhotra on 07-09-2024 Neutrophils/100 WBC (Bld) 63.1 % 47-70 [facility] Nucleated red blood cell per centageOrdered By: Shayna Malhotra on 07-09-2024 Nucleated RBC/100 WBC (Bld) [Ratio] 0 % 0-5 [facility] Platelet countOrdered By: Maryanne Malhotra on 07-09-2024 Platelets (Bld) [#/Vol] 116 10*3/uL Low 150-450 [facility] Potassium measurementOrdered By: Shayna Malhotra on 07-09-2024 Potassium [Moles/Vol] 4.2 mmol/L 3.5-5.1 [facility] RBC Auto (Bld) [#/Vol]Ordere d By: Shayna Malhotra on 07-09-2024 RBC (Bld) [#/Vol] 4.27 10*6/uL 4.2-5.[address] [facility] Serum anion gap measurementO rdered By: Shayna Malhotra on 07-09-2024 Anion gap [Moles/Vol] 5 mmol/L 5-15 [facility] Serum globulin measurementOr dered By: Shayna Malhotra on 07-09-2024 Globulin (S) [Mass/Vol] 4.9 g/dL High 2.2-4.2 [facility] Serum or plasma alanine burnette otransferase (ALT) measurementOrdered By: Shayna Malhotra on 07-09-2024 ALT [Catalytic activity/Vol] 27 U/L 13-56 [facility] Serum or plasma albumin kim urement (mass/volume)Ordered By: Shayna Malhotra on 07-09-2024 Albumin [Mass/Vol] 3.1 g/dL Low 3.2-5.0 [facility] Serum or plasma alkaline regina sphatase measurementOrdered By: Shayna Malhotra on 07-09-2024 ALP [Catalytic activity/Vol] 126 U/L High 45-117 [facility] Serum or plasma calcium kim urement (mass/volume)Ordered By: Shayna Malhotra on 07-09-2024 Calcium [Mass/Vol] 9.3 mg/dL 8.5-10.1 [facility] Serum or plasma creatinine m easurement (mass/volume)Ordered By: Shayna Malhotra on 07-09-2024 Creatinine [Mass/Vol] 0.76 mg/dL 0.55-1.02 [facility] Comment on above: The validity of the calculated GFR & GFRAA in patients over 70 years has not been determined. Clinical correlation is essential. Serum or plasma urea nitroge n measurement (mass/volume)Ordered By: Shayna Malhotra on 07-09-2024 Urea nitrogen [Mass/Vol] 17 mg/dL 7-18 [facility] Sodium levelOrdered By: Paty Malhotra on 07-09-2024 Sodium [Moles/Vol] 137 mmol/L 136-145 [facility] Total proteinOrdered By: Evi Malhotra on 07-09-2024 Protein [Mass/Vol] 8.0 g/dL 6.4-8.2 [facility] Vitamin D,25 Hydroxyon 07-09 Vitamin D 25-OH 44.8 ng/mL Normal [facility] Comment on above: Order Comment: 134 Result Comment: Maricarmen min D 25(OH) Status Range Deficiency <20 ng/mL (50nmol/L) Insufficiency 20 - 30 ng/mL (50 - 75 nmol/L) Sufficiency 30 - 100 ng/mL (75 - 250 nmol/L) Toxicity >100 ng/mL (>250 nmol/L) Performed By: #### L 500.4050, L506.1000, L501.9985, L100.0100 #### [facility] [address] [place], [address] White blood cell (WBC) count Ordered By: Shayna Malhotra on 07-09-2024 WBC (Bld) [#/Vol] 4.1 10*3/uL Low 4.4-11.0 [facility] MR/BMS.Bon 07-04-2024 MR/BMS.[facility] [address] [place] [address] OFFICE VISIT Date of Service: 07/04/24 MR#: [id number] Acct: [id number] Name: VIDA NINA Rep #: [id number] : 1950 Provider: Dr. Shayna gomes MD Age/Sex: 73/F Location: 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 Normal [facility] MR/BMS.Mily 05-28-2024 MR/BMS.[facility] [address] [facility] [place] [address] OFFICE VISIT Date of Service: 05/28/24 MR#: [id number] Acct: [id number] Name: VIDA NINA Rep #: [id number] : 1950 Provider: Dr. Shayna gomes MD Age/Sex: 73/F Location: [facility] Status: Signed Intake Vital [...] Intake Visit Reasons: Annual/Physical Chief Complaint: annual/physical University Relations Director Required: No Accompanied by: Self Is patient [...] History powder [facility] 05/28/24 History Lite Strips) [facility] 05/28/24 History Lite Meter kit) lancets 28 gauge ([facility] 11/23/21 05/28/24 History Lancets) nystatin 100,000 unit/gram topical 1 applic topical TID #0 grams 11/24/21 05/28/24 Rx powder ([facility]) quetiapine 100 mg tablet 300 [...] here in the office. She lives at [facility]. She checked herself in there a few years ago as she felt it was in (more content not included)... Normal [facility] Absolute lymphocyte countOrd ered By: Shayna Malhotra on 07-08-2023 Lymphocytes Auto (Unsp spec) [#/Vol] 0.97 10*3/uL 0.83-4.51 [facility] Automated lymphocyte count a s percentage of total leukocytesOrdered By: Shayna Malhotra on 07-08-2023 Lymphocytes/100 WBC Auto (Unsp spec) 21.6 % 19-41 [facility] Basophil percentageOrdered B y: Shayna Malhotra on 07-08-2023 Basophils/100 WBC (Bld) 0.7 % 0-1 [facility] Bilirubin [Mass/Vol] 0.60 mg/dL 0.20-1.00 [facility] Comment on above: For patients on eltr ombopag therapy, use of Dimension [place] TBIL is not recommended. Chloride [Moles/Vol] 109 mmol/L 98-107 [facility] Eosinophils/100 WBC (Bld) 2.4 % 0-5 [facility] Glucose [Mass/Vol] 204 mg/dL 74-106 [facility] Comment on above: Glucose result great er than or equal to 200 mg/dLsuggests DIABETES MELLITUS per A.D.A. criteria. Hemoglobin (Bld) [Mass/Vol] 12.6 g/dL 12.0-15.0 [facility] Monocytes/100 WBC (Bld) 8.7 % 0-10 [facility] Neutrophils (Bld) [#/Vol] 3.0 10*3/uL 2.0-7.7 [facility] Neutrophils/100 WBC (Bld) 66.4 % 47-70 [facility] Potassium [Moles/Vol] 4.4 mmol/L 3.5-5.1 [facility] Protein [Mass/Vol] 8.0 g/dL 6.4-8.2 [facility] Sodium [Moles/Vol] 137 mmol/L 136-145 [facility] WBC (Bld) [#/Vol] 4.5 10*3/uL 4.4-11.0 [facility] Determination of erythrocyte mean corpuscular volume (MCV)Ordered By: Shayna Malhotra on 07-08-2023 MCV (RBC) [Entitic vol] 90.3 fL 81-99 [facility] Erythrocyte distribution wid th ratioOrdered By: Shayna Malhotra on 07-08-2023 Erythrocyte distribution width (RBC) [Ratio] 15.5 % 11.6-14.6 [facility] Erythrocyte distribution wid th standard deviationOrdered By: Shayna Malhotra on 07-08-2023 Erythrocyte distribution width (RBC) [Entitic vol] 51.9 fL 35.1-43.9 [facility] Hematocrit Auto (Bld) [Volum e fraction]Ordered By: Shayna Malhotra on 07-08-2023 Hematocrit (Bld) [Volume fraction] 39.9 % 37-47 [facility] Immature granulocytes/100 WB C Auto (Bld)Ordered By: Shayna Malhotra on 07-08-2023 Immature granulocytes/100 WBC (Bld) 0.200 % 0.0-0.9 [facility] Comment on above: IG% - Immature Granu locytes (promyelocytes, myelocytes and metamyelocytes) > 1% indicates that a LEFT SHIFT is Present. Laboratory - Chemistry and C hemistry - challengeOrdered By: Shayna Malhotra on 07-08-2023 Albumin/Globulin [Mass ratio] 0.7 {ratio} 0.9-2.4 [facility] ALP [Catalytic activity/Vol] 126 U/L 45-117 [facility] ALT [Catalytic activity/Vol] 34 U/L 13-56 [facility] CO2 [Moles/Vol] 24.0 mmol/L 21.0-32.0 [facility] Globulin (S) [Mass/Vol] 4.7 g/dL 2.2-4.2 [facility] Urea nitrogen/Creatinine [Mass ratio] 17.2 mg/mg 10-20 [facility] - Hematology and Cell countsOrdered By: Shayna Malhotra on 07-08-2023 MCH (RBC) [Entitic mass] 28.5 pg 27.0-32.0 [facility] MCHC (RBC) [Mass/Vol] 31.6 g/dL 32-36 [facility] Nucleated RBC/100 WBC (Bld) [Ratio] 0 % 0-5 [facility] Platelets (Bld) [#/Vol] 130 10*3/uL 150-450 [facility] No Panel InformationOrdered By: Shayna Malhotra on 07-08-2023 Estimated GFR (MDRD) Amer 83 mL/min >60 [facility] Comment on above: GFR Calc Estimated GFR (MDRD) Non-Af Amer 68 mL/min >60 [facility] Comment on above: Non- GFR Calc Vitamin D 25-Hydroxy 36.2 ng/mL [facility] Comment on above: Vitamin D 25(OH) Sta tus Range Deficiency <20 ng/mL (50nmol/L) Insufficiency 20 - 30 ng/mL (50 - 75 nmol/L) Sufficiency 30 - 100 ng/mL (75 - 250 nmol/L) Toxicity >100 ng/mL (>250 nmol/L) Platelet mean volume Robert-Ec ker (Bld) [Entitic vol]Ordered By: Shayna Malhotra on 07-08-2023 Platelet mean volume (Bld) [Entitic vol] 11.5 fL 6.2-12.0 [facility] RBC Auto (Bld) [#/Vol]Ordere d By: Shayna aMlhotra on 07-08-2023 RBC (Bld) [#/Vol] 4.42 10*6/uL 4.2-5.[address] [facility] Serum or plasma calcium kim urement (mass/volume)Ordered By: Shayna Malhotra on 07-08-2023 Calcium [Mass/Vol] 9.3 mg/dL 8.5-10.1 [facility] Serum or plasma creatinine m easurement (mass/volume)Ordered By: Shayna Malhotra on 07-08-2023 Creatinine [Mass/Vol] 0.87 mg/dL 0.55-1.02 [facility] Comment on above: The validity of the calculated GFR & GFRAA in patients over 70 years has not been determined. Clinical correlation is essential. Serum or plasma urea nitroge n measurement (mass/volume)Ordered By: Shayna Malhotra on 07-08-2023 Urea nitrogen [Mass/Vol] 15 mg/dL 7-18 [facility] Thin prep Papanicolaou smear with manual screeningOrdered By: Shayna Malhotra on 07-08-2023 Thin prep Papanicolaou smear with manual screening 3.3 g/dL 3.2-5.0 [facility] Thin prep Papanicolaou smear with manual screening 38 U/L 15-37 [facility] Thin prep Papanicolaou smear with manual screening 4 5-15 [facility] Whole blood hemoglobin A1c/t otal hemoglobin ratio (mass fraction)Ordered By: Shayna Malhotra on 07-08-2023 HbA1c (Bld) [Mass fraction] 7.5 % 3.8-5.6 [facility] Comment on above: Normal < 5.7 % Predi abetic 5.7 - 6.4 % Diabetic >or= 6.5 % Please note range changes. Absolute lymphocyte countOrd ered By: [facility] on 04-08-2023 Lymphocytes Auto (Unsp spec) [#/Vol] 1.16 10*3/uL 0.83-4.51 [facility] Basophil percentageOrdered B y: [facility] on 04-08-2023 Basophils/100 WBC (Bld) 0.6 % 0-1 [facility] Bilirubin [Mass/Vol] 0.60 mg/dL 0.20-1.00 [facility] Comment on above: For patients on eltr ombopag therapy, use of Dimension [place] TBIL is not recommended. Chloride [Moles/Vol] 106 mmol/L 98-107 [facility] Eosinophils/100 WBC (Bld) 2.6 % 0-5 [facility] Glucose [Mass/Vol] 200 mg/dL 74-106 [facility] Comment on above: Glucose result great er than or equal to 200 mg/dLsuggests DIABETES MELLITUS per A.D.A. criteria. Neutrophils (Bld) [#/Vol] 3.3 10*3/uL 2.0-7.7 [facility] Neutrophils/100 WBC (Bld) 65.4 % 47-70 [facility] Potassium [Moles/Vol] 4.2 mmol/L 3.5-5.1 [facility] Protein [Mass/Vol] 8.1 g/dL 6.4-8.2 [facility] Sodium [Moles/Vol] 136 mmol/L 136-145 [facility] WBC (Bld) [#/Vol] 5.0 10*3/uL 4.4-11.0 [facility] Blood erythrocytes count (nu mber/volume)Ordered By: [facility] on 04-08-2023 RBC (Bld) [#/Vol] 4.50 10*6/uL 4.2-5.[address] [facility] Blood hemoglobin measurement (mass/volume)Ordered By: [facility] on 04-08-2023 Hemoglobin (Bld) [Mass/Vol] 12.9 g/dL 12.0-15.0 [facility] Blood lymphocytes/100 leukoc ytesOrdered By: [facility] on 04-08-2023 Lymphocytes/100 WBC (Bld) 23.2 % 19-41 [facility] Blood monocytes/100 leukocyt esOrdered By: [facility] on 04-08-2023 Monocytes/100 WBC (Bld) 7.8 % 0-10 [facility] Blood platelet mean volumeOr dered By: [facility] on 04-08-2023 Platelet mean volume (Bld) [Entitic vol] 11.9 fL 6.2-12.0 [facility] Determination of erythrocyte mean corpuscular volume (MCV)Ordered By: [facility] on 04-08-2023 MCV (RBC) [Entitic vol] 89.6 fL 81-99 [facility] Hematocrit Auto (Bld) [Volum e fraction]Ordered By: [facility] on 04-08-2023 Hematocrit (Bld) [Volume fraction] 40.3 % 37-47 [facility] - Chemistry and C hemistry - challengeOrdered By: [facility] on 04-08-2023 ALP [Catalytic activity/Vol] 126 U/L 45-117 [facility] ALT [Catalytic activity/Vol] 35 U/L 13-56 [facility] CO2 [Moles/Vol] 24.0 mmol/L 21.0-32.0 [facility] Globulin (S) [Mass/Vol] 4.9 g/dL 2.2-4.2 [facility] Urea nitrogen/Creatinine [Mass ratio] 17.1 mg/mg 10-20 [facility] - Hematology and Cell countsOrdered By: [facility] on 04-08-2023 Erythrocyte distribution width (RBC) [Entitic vol] 51.4 fL 35.1-43.9 [facility] Erythrocyte distribution width (RBC) [Ratio] 15.6 % 11.6-14.6 [facility] Immature granulocytes/100 WBC (Bld) 0.400 % 0.0-0.9 [facility] Comment on above: IG% - Immature Granu locytes (promyelocytes, myelocytes and metamyelocytes) > 1% indicates that a LEFT SHIFT is Present. MCH (RBC) [Entitic mass] 28.7 pg 27.0-32.0 [facility] Nucleated RBC/100 WBC (Bld) [Ratio] 0 % 0-5 [facility] MCHC Auto (RBC) [Mass/Vol]Or dered By: [facility] on 04-08-2023 MCHC (RBC) [Mass/Vol] 32.0 g/dL 32-36 [facility] No Panel InformationOrdered By: [facility] on 04-08-2023 Estimated GFR (MDRD) Amer 82 mL/min >60 [facility] Comment on above: GFR Calc Estimated GFR (MDRD) Non-Af Amer 68 mL/min >60 [facility] Comment on above: Non- GFR Calc Vitamin D 25-Hydroxy 43.2 ng/mL [facility] Comment on above: Vitamin D 25(OH) Sta tus Range Deficiency <20 ng/mL (50nmol/L) Insufficiency 20 - 30 ng/mL (50 - 75 nmol/L) Sufficiency 30 - 100 ng/mL (75 - 250 nmol/L) Toxicity >100 ng/mL (>250 nmol/L) Platelets bldOrdered By: [facility] on 04-08-2023 Platelets (Bld) [#/Vol] 119 10*3/uL 150-450 [facility] Serum or plasma albumin kim urement (mass/volume)Ordered By: [facility] on 04-08-2023 Albumin [Mass/Vol] 3.2 g/dL 3.2-5.0 [facility] Serum or plasma albumin/glob ulin mass ratioOrdered By: [facility] on 04-08-2023 Albumin/Globulin [Mass ratio] 0.7 {ratio} 0.9-2.4 [facility] Serum or plasma calcium kim urement (mass/volume)Ordered By: [facility] on 04-08-2023 Calcium [Mass/Vol] 9.1 mg/dL 8.5-10.1 [facility] Serum or plasma creatinine m easurement (mass/volume)Ordered By: [facility] on 04-08-2023 Creatinine [Mass/Vol] 0.88 mg/dL 0.55-1.02 [facility] Comment on above: The validity of the calculated GFR & GFRAA in patients over 70 years has not been determined. Clinical correlation is essential. Serum or plasma urea nitroge n measurement (mass/volume)Ordered By: [facility] on 04-08-2023 Urea nitrogen [Mass/Vol] 15 mg/dL 7-18 [facility] Thin prep Papanicolaou smear with manual screeningOrdered By: [facility] on 04-08-2023 Thin prep Papanicolaou smear with manual screening 36 U/L 15-37 [facility] Thin prep Papanicolaou smear with manual screening 6 5-15 [facility] Whole blood hemoglobin A1c/t otal hemoglobin ratio (mass fraction)Ordered By: [facility] on 04-08-2023 HbA1c (Bld) [Mass fraction] 7.5 % 3.8-5.6 [facility] Comment on above: Normal < 5.7 % Predi abetic 5.7 - 6.4 % Diabetic >or= 6.5 % Please note range changes. Absolute lymphocyte countOrd ered By: Shayna Malhotra on 10-13-2022 Lymphocytes Auto (Unsp spec) [#/Vol] 1.32 10*3/uL 0.83-4.51 [facility] Basophil percentageOrdered B y: Shayna Malhotra on 10-13-2022 Basophils/100 WBC (Bld) 0.6 % 0-1 [facility] Bilirubin [Mass/Vol] 0.40 mg/dL 0.20-1.00 [facility] Comment on above: For patients on eltr ombopag therapy, use of Dimension [place] TBIL is not recommended. Chloride [Moles/Vol] 106 mmol/L 98-107 [facility] Eosinophils/100 WBC (Bld) 3.5 % 0-5 [facility] Glucose [Mass/Vol] 232 mg/dL 74-106 [facility] Comment on above: Glucose result great er than or equal to 200 mg/dLsuggests DIABETES MELLITUS per A.D.A. criteria. Neutrophils (Bld) [#/Vol] 3.2 10*3/uL 2.0-7.7 [facility] Neutrophils/100 WBC (Bld) 60.7 % 47-70 [facility] Potassium [Moles/Vol] 4.7 mmol/L 3.5-5.1 [facility] Protein [Mass/Vol] 8.1 g/dL 6.4-8.2 [facility] Sodium [Moles/Vol] 137 mmol/L 136-145 [facility] WBC (Bld) [#/Vol] 5.2 10*3/uL 4.4-11.0 [facility] Blood erythrocytes count (nu mber/volume)Ordered By: Shayna Malhotra on 10-13-2022 RBC (Bld) [#/Vol] 4.62 10*6/uL 4.2-5.[address] [facility] Blood hemoglobin measurement (mass/volume)Ordered By: Shayna Malhotra on 10-13-2022 Hemoglobin (Bld) [Mass/Vol] 13.1 g/dL 12.0-15.0 [facility] Blood lymphocytes/100 leukoc ytesOrdered By: Shayna Malhotra on 10-13-2022 Lymphocytes/100 WBC (Bld) 25.4 % 19-41 [facility] Blood monocytes/100 leukocyt esOrdered By: Shayna Malhotra on 10-13-2022 Monocytes/100 WBC (Bld) 9.6 % 0-10 [facility] Blood platelet mean volumeOr dered By: Shayna Malhotra on 10-13-2022 Platelet mean volume (Bld) [Entitic vol] 11.1 fL 6.2-12.0 [facility] Determination of erythrocyte mean corpuscular volume (MCV)Ordered By: Shayna Malhotra on 10-13-2022 MCV (RBC) [Entitic vol] 90.3 fL 81-99 [facility] Hematocrit Auto (Bld) [Volum e fraction]Ordered By: Shayna Malhotra on 10-13-2022 Hematocrit (Bld) [Volume fraction] 41.7 % 37-47 [facility] - Chemistry and C hemistry - challengeOrdered By: Shayna Malhotra on 10-13-2022 ALP [Catalytic activity/Vol] 153 U/L 45-117 [facility] ALT [Catalytic activity/Vol] 45 U/L 13-56 [facility] CO2 [Moles/Vol] 25.0 mmol/L 21.0-32.0 [facility] Globulin (S) [Mass/Vol] 4.9 g/dL 2.2-4.2 [facility] Urea nitrogen/Creatinine [Mass ratio] 15.7 mg/mg 10-20 [facility] - Hematology and Cell countsOrdered By: Shayna Malhotra on 10-13-2022 Erythrocyte distribution width (RBC) [Entitic vol] 50.5 fL 35.1-43.9 [facility] Erythrocyte distribution width (RBC) [Ratio] 15.1 % 11.6-14.6 [facility] Immature granulocytes/100 WBC (Bld) 0.200 % 0.0-0.9 [facility] Comment on above: IG% - Immature Granu locytes (promyelocytes, myelocytes and metamyelocytes) > 1% indicates that a LEFT SHIFT is Present. MCH (RBC) [Entitic mass] 28.4 pg 27.0-32.0 [facility] Nucleated RBC/100 WBC (Bld) [Ratio] 0 % 0-5 [facility] MCHC Auto (RBC) [Mass/Vol]Or dered By: Shayna Malhotra on 10-13-2022 MCHC (RBC) [Mass/Vol] 31.4 g/dL 32-36 [facility] No Panel InformationOrdered By: Shayna Malhotra on 10-13-2022 Estimated GFR (MDRD) Amer 80 mL/min >60 [facility] Comment on above: GFR Calc Estimated GFR (MDRD) Non-Af Amer 66 mL/min >60 [facility] Comment on above: Non- GFR Calc Vitamin D 25-Hydroxy 57.3 ng/mL [facility] Comment on above: Vitamin D 25(OH) Sta tus Range Deficiency <20 ng/mL (50nmol/L) Insufficiency 20 - 30 ng/mL (50 - 75 nmol/L) Sufficiency 30 - 100 ng/mL (75 - 250 nmol/L) Toxicity >100 ng/mL (>250 nmol/L) Platelets bldOrdered By: Evi Malhotra on 10-13-2022 Platelets (Bld) [#/Vol] 139 10*3/uL 150-450 [facility] Serum or plasma albumin kim urement (mass/volume)Ordered By: Shayna Malhotra on 10-13-2022 Albumin [Mass/Vol] 3.2 g/dL 3.2-5.0 [facility] Serum or plasma albumin/glob ulin mass ratioOrdered By: Shayna Malhotra on 10-13-2022 Albumin/Globulin [Mass ratio] 0.7 {ratio} 0.9-2.4 [facility] Serum or plasma calcium kim urement (mass/volume)Ordered By: Shayna Malhotra on 05-10-2023 Calcium [Mass/Vol] 9.5 mg/dL 8.5-10.1 [facility] Serum or plasma creatinine m easurement (mass/volume)Ordered By: Shayna Malhotra on 10-13-2022 Creatinine [Mass/Vol] 0.89 mg/dL 0.55-1.02 [facility] Comment on above: The validity of the calculated GFR & GFRAA in patients over 70 years has not been determined. Clinical correlation is essential. Serum or plasma urea nitroge n measurement (mass/volume)Ordered By: Shayna Malhotra on 10-13-2022 Urea nitrogen [Mass/Vol] 14 mg/dL 7-18 [facility] Thin prep Papanicolaou smear with manual screeningOrdered By: Shayna Malhotra on 10-13-2022 Thin prep Papanicolaou smear with manual screening 49 U/L 15-37 [facility] Thin prep Papanicolaou smear with manual screening 6 5-15 [facility] No Panel InformationOrdered By: Shayna Malhotra on 08-12-2022 C-Peptide 2.9 ng/mL 1.1-4.4 [facility] Comment on above: C-Peptide reference interval is for fasting patients.Performed at: [facility] Director: Suhas Deal PhD, Phone: [phone] Absolute lymphocyte countOrd ered By: Shayna Malhotra on 07-13-2022 Lymphocytes Auto (Unsp spec) [#/Vol] 1.18 10*3/uL 0.83-4.51 [facility] Basophil percentageOrdered B y: Shayna Malhotra on 07-13-2022 Basophils/100 WBC (Bld) 0.7 % 0-1 [facility] Bilirubin [Mass/Vol] 0.90 mg/dL 0.20-1.00 [facility] Comment on above: For patients on eltr ombopag therapy, use of Dimension [place] TBIL is not recommended. Chloride [Moles/Vol] 104 mmol/L 98-107 [facility] Eosinophils/100 WBC (Bld) 3.3 % 0-5 [facility] Glucose [Mass/Vol] 314 mg/dL 74-106 [facility] Comment on above: Glucose result great er than or equal to 200 mg/dLsuggests DIABETES MELLITUS per A.D.A. criteria. Neutrophils (Bld) [#/Vol] 3.5 10*3/uL 2.0-7.7 [facility] Neutrophils/100 WBC (Bld) 64.8 % 47-70 [facility] Potassium [Moles/Vol] 5.1 mmol/L 3.5-5.1 [facility] Comment on above: Slight Hemolysis, Re sult may be falsely increased. Protein [Mass/Vol] 8.2 g/dL 6.4-8.2 [facility] Sodium [Moles/Vol] 135 mmol/L 136-145 [facility] WBC (Bld) [#/Vol] 5.4 10*3/uL 4.4-11.0 [facility] Blood erythrocytes count (nu mber/volume)Ordered By: Shayna Malhotra on 07-13-2022 RBC (Bld) [#/Vol] 4.51 10*6/uL 4.2-5.[address] [facility] Blood hemoglobin measurement (mass/volume)Ordered By: Shayna Malhotra on 07-13-2022 Hemoglobin (Bld) [Mass/Vol] 12.8 g/dL 12.0-15.0 [facility] Blood lymphocytes/100 leukoc ytesOrdered By: Shayna Malhotra on 07-13-2022 Lymphocytes/100 WBC (Bld) 21.9 % 19-41 [facility] Blood monocytes/100 leukocyt esOrdered By: Shayna Malhotra on 07-13-2022 Monocytes/100 WBC (Bld) 9.1 % 0-10 [facility] Blood platelet mean volumeOr dered By: Shayna Malhotra on 07-13-2022 Platelet mean volume (Bld) [Entitic vol] 11.2 fL 6.2-12.0 [facility] Determination of erythrocyte mean corpuscular volume (MCV)Ordered By: Shayna Malhotra on 07-13-2022 MCV (RBC) [Entitic vol] 87.1 fL 81-99 [facility] Hematocrit Auto (Bld) [Volum e fraction]Ordered By: Shayna Malhotra on 07-13-2022 Hematocrit (Bld) [Volume fraction] 39.3 % 37-47 [facility] - Chemistry and C hemistry - challengeOrdered By: Shayna Malhotra on 07-13-2022 ALP [Catalytic activity/Vol] 159 U/L 45-117 [facility] ALT [Catalytic activity/Vol] 35 U/L 13-56 [facility] CO2 [Moles/Vol] 23.0 mmol/L 21.0-32.0 [facility] Globulin (S) [Mass/Vol] 4.9 g/dL 2.2-4.2 [facility] Urea nitrogen/Creatinine [Mass ratio] 16.6 mg/mg 10-20 [facility] - Hematology and Cell countsOrdered By: Shayna Malhotra on 07-13-2022 Erythrocyte distribution width (RBC) [Entitic vol] 49.6 fL 35.1-43.9 [facility] Erythrocyte distribution width (RBC) [Ratio] 15.7 % 11.6-14.6 [facility] Immature granulocytes/100 WBC (Bld) 0.200 % 0.0-0.9 [facility] Comment on above: IG% - Immature Granu locytes (promyelocytes, myelocytes and metamyelocytes) > 1% indicates that a LEFT SHIFT is Present. MCH (RBC) [Entitic mass] 28.4 pg 27.0-32.0 [facility] Nucleated RBC/100 WBC (Bld) [Ratio] 0 % 0-5 [facility] MCHC Auto (RBC) [Mass/Vol]Or dered By: Shayna Malhotra on 07-13-2022 MCHC (RBC) [Mass/Vol] 32.6 g/dL 32-36 [facility] No Panel InformationOrdered By: Shayna Malhotra on 07-13-2022 Estimated GFR (MDRD) Amer 74 mL/min >60 [facility] Comment on above: GFR Calc Estimated GFR (MDRD) Non-Af Amer 61 mL/min >60 [facility] Comment on above: Non- GFR Calc Vitamin D 25-Hydroxy 47.5 ng/mL [facility] Comment on above: Vitamin D 25(OH) Sta tus Range Deficiency <20 ng/mL (50nmol/L) Insufficiency 20 - 30 ng/mL (50 - 75 nmol/L) Sufficiency 30 - 100 ng/mL (75 - 250 nmol/L) Toxicity >100 ng/mL (>250 nmol/L) Platelets bldOrdered By: Evi Malhotra on 07-13-2022 Platelets (Bld) [#/Vol] 132 10*3/uL 150-450 [facility] Serum or plasma albumin kim urement (mass/volume)Ordered By: Shayna Malhotra on 07-13-2022 Albumin [Mass/Vol] 3.3 g/dL 3.2-5.0 [facility] Serum or plasma albumin/glob ulin mass ratioOrdered By: Shayna Malhotra on 07-13-2022 Albumin/Globulin [Mass ratio] 0.7 {ratio} 0.9-2.4 [facility] Serum or plasma calcium kim urement (mass/volume)Ordered By: Shayna Malhotra on 07-13-2022 Calcium [Mass/Vol] 9.6 mg/dL 8.5-10.1 [facility] Serum or plasma creatinine m easurement (mass/volume)Ordered By: Shayna Malhotra on 07-13-2022 Creatinine [Mass/Vol] 0.97 mg/dL 0.55-1.02 [facility] Comment on above: The validity of the calculated GFR & GFRAA in patients over 70 years has not been determined. Clinical correlation is essential. Serum or plasma urea nitroge n measurement (mass/volume)Ordered By: Shayna Malhotra on 07-13-2022 Urea nitrogen [Mass/Vol] 16 mg/dL 7-18 [facility] Thin prep Papanicolaou smear with manual screeningOrdered By: Shayna Malhotra on 07-13-2022 Thin prep Papanicolaou smear with manual screening 48 U/L 15-37 [facility] Comment on above: Slight Hemolysis, Re sult may be falsely increased. Thin prep Papanicolaou smear with manual screening 8 5-15 [facility] Absolute lymphocyte countOrd ered By: [facility] on 06-08-2022 Lymphocytes Auto (Unsp spec) [#/Vol] 1.23 10*3/uL 0.83-4.51 [facility] Basophil percentageOrdered B y: [facility] on 06-08-2022 Basophils/100 WBC (Bld) 0.6 % 0-1 [facility] Bilirubin [Mass/Vol] 0.50 mg/dL 0.20-1.00 [facility] Comment on above: For patients on eltr ombopag therapy, use of Dimension [place] TBIL is not recommended. Chloride [Moles/Vol] 103 mmol/L 98-107 [facility] Cholesterol [Mass/Vol] 116 mg/dL <200 [facility] Comment on above: <200 mg/dL Desirable 200-240 mg/dL Borderline >240 mg/dL High Risk Eosinophils/100 WBC (Bld) 3.3 % 0-5 [facility] Glucose [Mass/Vol] 266 mg/dL 74-106 [facility] Comment on above: Glucose result great er than or equal to 200 mg/dLsuggests DIABETES MELLITUS per A.D.A. criteria. Neutrophils (Bld) [#/Vol] 2.9 10*3/uL 2.0-7.7 [facility] Neutrophils/100 WBC (Bld) 61.4 % 47-70 [facility] Potassium [Moles/Vol] 4.3 mmol/L 3.5-5.1 [facility] Protein [Mass/Vol] 7.6 g/dL 6.4-8.2 [facility] Sodium [Moles/Vol] 134 mmol/L 136-145 [facility] Triglyceride [Mass/Vol] 86 mg/dL <199 [facility] Comment on above: The drugs N-Acetylcy steine and Metamizole may falsely depress this assay.Serum Triglycerides Reference Interval Normal <150 mg/dL Borderline high 150 - 199 mg/dL High 200 - 499 mg/dL Very High > or = 500 mg/dL WBC (Bld) [#/Vol] 4.8 10*3/uL 4.4-11.0 [facility] Blood erythrocytes count (nu mber/volume)Ordered By: [facility] on 06-08-2022 RBC (Bld) [#/Vol] 4.47 10*6/uL 4.2-5.[address] [facility] Blood hemoglobin measurement (mass/volume)Ordered By: [facility] on 06-08-2022 Hemoglobin (Bld) [Mass/Vol] 12.4 g/dL 12.0-15.0 [facility] Blood lymphocytes/100 leukoc ytesOrdered By: [facility] on 06-08-2022 Lymphocytes/100 WBC (Bld) 25.7 % 19-41 [facility] Blood monocytes/100 leukocyt esOrdered By: [facility] on 06-08-2022 Monocytes/100 WBC (Bld) 8.8 % 0-10 [facility] Blood platelet mean volumeOr dered By: [facility] on 06-08-2022 Platelet mean volume (Bld) [Entitic vol] 11.1 fL 6.2-12.0 [facility] Determination of erythrocyte mean corpuscular volume (MCV)Ordered By: [facility] on 06-08-2022 MCV (RBC) [Entitic vol] 88.8 fL 81-99 [facility] Hematocrit Auto (Bld) [Volum e fraction]Ordered By: [facility] on 06-08-2022 Hematocrit (Bld) [Volume fraction] 39.7 % 37-47 [facility] Laboratory - Chemistry and C hemistry - challengeOrdered By: [facility] on 06-08-2022 ALP [Catalytic activity/Vol] 142 U/L 45-117 [facility] ALT [Catalytic activity/Vol] 36 U/L 13-56 [facility] CO2 [Moles/Vol] 22.0 mmol/L 21.0-32.0 [facility] Globulin (S) [Mass/Vol] 4.8 g/dL 2.2-4.2 [facility] Urea nitrogen/Creatinine [Mass ratio] 17.1 mg/mg 10-20 [facility] Laboratory - Hematology and Cell countsOrdered By: [facility] on 06-08-2022 Erythrocyte distribution width (RBC) [Entitic vol] 48.8 fL 35.1-43.9 [facility] Erythrocyte distribution width (RBC) [Ratio] 14.9 % 11.6-14.6 [facility] Immature granulocytes/100 WBC (Bld) 0.200 % 0.0-0.9 [facility] Comment on above: IG% - Immature Granu locytes (promyelocytes, myelocytes and metamyelocytes) > 1% indicates that a LEFT SHIFT is Present. MCH (RBC) [Entitic mass] 27.7 pg 27.0-32.0 [facility] Nucleated RBC/100 WBC (Bld) [Ratio] 0 % 0-5 [facility] MCHC Auto (RBC) [Mass/Vol]Or dered By: [facility] on 06-08-2022 MCHC (RBC) [Mass/Vol] 31.2 g/dL 32-36 [facility] No Panel InformationOrdered By: [facility] on 06-08-2022 Estimated GFR (MDRD) Amer 82 mL/min >60 [facility] Comment on above: GFR Calc Estimated GFR (MDRD) Non-Af Amer 68 mL/min >60 [facility] Comment on above: Non- GFR Calc Vitamin D 25-Hydroxy 56.8 ng/mL [facility] Comment on above: Vitamin D 25(OH) Sta tus Range Deficiency <20 ng/mL (50nmol/L) Insufficiency 20 - 30 ng/mL (50 - 75 nmol/L) Sufficiency 30 - 100 ng/mL (75 - 250 nmol/L) Toxicity >100 ng/mL (>250 nmol/L) Platelets bldOrdered By: [facility] on 06-08-[facility]22 Platelets (Bld) [#/Vol] 145 10*3/uL 150-450 [facility] Serum or plasma albumin kim urement (mass/volume)Ordered By: [facility] on 06-08-2022 Albumin [Mass/Vol] 2.8 g/dL 3.2-5.0 [facility] Serum or plasma albumin/glob ulin mass ratioOrdered By: [facility] on 06-08-2022 Albumin/Globulin [Mass ratio] 0.6 {ratio} 0.9-2.4 [facility] Serum or plasma calcium kim urement (mass/volume)Ordered By: [facility] on 06-08-2022 Calcium [Mass/Vol] 9.0 mg/dL 8.5-10.1 [facility] Serum or plasma cholesterol in HDL measurement (mass/volume)Ordered By: [facility] on 06-08-2022 Cholesterol in HDL [Mass/Vol] 58 mg/dL >40 [facility] Comment on above: The drugs N-Acetylcy steine and Metamizole may falsely depress this assay. Reference Range HDL <40 mg/dL Low HDL Cholesterol HDL >or= 60 mg/dL High HDL Cholesterol Serum or plasma cholesterol in VLDL measurement (mass/volume)Ordered By: [facility] on 06-08-2022 Cholesterol in VLDL [Mass/Vol] 17 mg/dL 5-40 [facility] Serum or plasma creatinine m easurement (mass/volume)Ordered By: [facility] on 06-08-2022 Creatinine [Mass/Vol] 0.88 mg/dL 0.55-1.02 [facility] Comment on above: The validity of the calculated GFR & GFRAA in patients over 70 years has not been determined. Clinical correlation is essential. Serum or plasma low density lipoprotein (LDL) cholesterol measurement (mass/volume)Ordered By: [facility] on 06-08-2022 Cholesterol in LDL [Mass/Vol] 41 mg/dL 0-130 [facility] Serum or plasma urea nitroge n measurement (mass/volume)Ordered By: [facility] on 06-08-2022 Urea nitrogen [Mass/Vol] 15 mg/dL 7-18 [facility] Thin prep Papanicolaou smear with manual screeningOrdered By: [facility] on 06-08-2022 Thin prep Papanicolaou smear with manual screening 39 U/L 15-37 [facility] Thin prep Papanicolaou smear with manual screening 9 5-15 [facility] Whole blood hemoglobin A1c/t otal hemoglobin ratio (mass fraction)Ordered By: [facility] on 06-08-2022 HbA1c (Bld) [Mass fraction] 8.8 % 3.8-5.6 [facility] Comment on above: Normal < 5.7 % Predi abetic 5.7 - 6.4 % Diabetic >or= 6.5 % Please note range changes. Absolute lymphocyte countOrd ered By: Shayna Malhotra on 04-13-2022 Lymphocytes Auto (Unsp spec) [#/Vol] 1.30 10*3/uL 0.83-4.51 [facility] Basophil percentageOrdered B y: Shayna Malhotra on 04-13-2022 Basophils/100 WBC (Bld) 0.2 % 0-1 [facility] Bilirubin [Mass/Vol] 0.40 mg/dL 0.20-1.00 [facility] Comment on above: For patients on eltr ombopag therapy, use of Dimension [place] TBIL is not recommended. Chloride [Moles/Vol] 106 mmol/L 98-107 [facility] Eosinophils/100 WBC (Bld) 3.5 % 0-5 [facility] Glucose [Mass/Vol] 149 mg/dL 74-106 [facility] Comment on above: Fasting Glucose resu lt greater than or equal to 126 mg/dL suggests DIABETES MELLITUS per A.D.A. criteria. Neutrophils (Bld) [#/Vol] 2.5 10*3/uL 2.0-7.7 [facility] Neutrophils/100 WBC (Bld) 54.6 % 47-70 [facility] Potassium [Moles/Vol] 4.5 mmol/L 3.5-5.1 [facility] Protein [Mass/Vol] 7.8 g/dL 6.4-8.2 [facility] Sodium [Moles/Vol] 138 mmol/L 136-145 [facility] WBC (Bld) [#/Vol] 4.6 10*3/uL 4.4-11.0 [facility] Blood erythrocytes count (nu mber/volume)Ordered By: Shayna Malhotra on 04-13-2022 RBC (Bld) [#/Vol] 4.45 10*6/uL 4.2-5.[address] [facility] Blood hemoglobin measurement (mass/volume)Ordered By: Shayna Malhotra on 04-13-2022 Hemoglobin (Bld) [Mass/Vol] 12.9 g/dL 12.0-15.0 [facility] Blood lymphocytes/100 leukoc ytesOrdered By: Shayna Malhotra on 04-13-2022 Lymphocytes/100 WBC (Bld) 28.4 % 19-41 [facility] Blood monocytes/100 leukocyt esOrdered By: Shayna Malhotra on 04-13-2022 Monocytes/100 WBC (Bld) 12.9 % 0-10 [facility] Blood platelet mean volumeOr dered By: Shayna Malhotra on 04-13-2022 Platelet mean volume (Bld) [Entitic vol] 11.1 fL 6.2-12.0 [facility] Determination of erythrocyte mean corpuscular volume (MCV)Ordered By: Shayna Malhotra on 04-13-2022 MCV (RBC) [Entitic vol] 90.8 fL 81-99 [facility] Hematocrit Auto (Bld) [Volum e fraction]Ordered By: Shayna Malhotra on 04-13-2022 Hematocrit (Bld) [Volume fraction] 40.4 % 37-47 [facility] Laboratory - Chemistry and C hemistry - challengeOrdered By: Shayna Malhotra on 04-13-2022 ALP [Catalytic activity/Vol] 144 U/L 45-117 [facility] ALT [Catalytic activity/Vol] 32 U/L 13-56 [facility] CO2 [Moles/Vol] 23.0 mmol/L 21.0-32.0 [facility] Globulin (S) [Mass/Vol] 4.8 g/dL 2.2-4.2 [facility] Urea nitrogen/Creatinine [Mass ratio] 15.3 mg/mg 10-20 [facility] Laboratory - Hematology and Cell countsOrdered By: Shayna Malhotra on 04-13-2022 Erythrocyte distribution width (RBC) [Entitic vol] 47.8 fL 35.1-43.9 [facility] Erythrocyte distribution width (RBC) [Ratio] 14.3 % 11.6-14.6 [facility] Immature granulocytes/100 WBC (Bld) 0.400 % 0.0-0.9 [facility] Comment on above: IG% - Immature Granu locytes (promyelocytes, myelocytes and metamyelocytes) > 1% indicates that a LEFT SHIFT is Present. MCH (RBC) [Entitic mass] 29.0 pg 27.0-32.0 [facility] Nucleated RBC/100 WBC (Bld) [Ratio] 0 % 0-5 [facility] MCHC Auto (RBC) [Mass/Vol]Or dered By: Shayna Malhotra on 04-13-2022 MCHC (RBC) [Mass/Vol] 31.9 g/dL 32-36 [facility] No Panel InformationOrdered By: Shayna Malhotra on 04-13-2022 Estimated GFR (MDRD) Amer 78 mL/min >60 [facility] Comment on above: GFR Calc Estimated GFR (MDRD) Non-Af Amer 65 mL/min >60 [facility] Comment on above: Non- GFR Calc Vitamin D 25-Hydroxy 63.8 ng/mL [facility] Comment on above: Vitamin D 25(OH) Sta tus Range Deficiency <20 ng/mL (50nmol/L) Insufficiency 20 - 30 ng/mL (50 - 75 nmol/L) Sufficiency 30 - 100 ng/mL (75 - 250 nmol/L) Toxicity >100 ng/mL (>250 nmol/L) Platelets bldOrdered By: Evi Malhotra on 04-13-2022 Platelets (Bld) [#/Vol] 157 10*3/uL 150-450 [facility] Serum or plasma albumin kim urement (mass/volume)Ordered By: Shayna Malhotra on 04-13-2022 Albumin [Mass/Vol] 3.0 g/dL 3.2-5.0 [facility] Serum or plasma albumin/glob ulin mass ratioOrdered By: Shayna Malhotra on 04-13-2022 Albumin/Globulin [Mass ratio] 0.6 {ratio} 0.9-2.4 [facility] Serum or plasma calcium kim urement (mass/volume)Ordered By: Shayna Malhotra on 04-13-2022 Calcium [Mass/Vol] 9.0 mg/dL 8.5-10.1 [facility] Serum or plasma creatinine m easurement (mass/volume)Ordered By: Shayna Malhotra on 04-13-2022 Creatinine [Mass/Vol] 0.92 mg/dL 0.55-1.02 [facility] Comment on above: The validity of the calculated GFR & GFRAA in patients over 70 years has not been determined. Clinical correlation is essential. Serum or plasma urea nitroge n measurement (mass/volume)Ordered By: Shayna Malhotra on 04-13-2022 Urea nitrogen [Mass/Vol] 14 mg/dL 7-18 [facility] Thin prep Papanicolaou smear with manual screeningOrdered By: Shayna Malhotra on 04-13-2022 Thin prep Papanicolaou smear with manual screening 40 U/L 15-37 [facility] Thin prep Papanicolaou smear with manual screening 9 5-15 [facility] Basophil percentageon 2021 Bilirubin [Mass/Vol] 0.80 mg/dL 0.20-1.00 [facility] Work Phone: Comment on above: For patients on eltr ombopag therapy, use of Dimension [place] TBIL is not recommended. Chloride [Moles/Vol] 103 mmol/L 98-107 [facility] Work Phone: Glucose [Mass/Vol] 218 mg/dL 74-106 [facility] Work Phone: Comment on above: Glucose result great er than or equal to 200 mg/dLsuggests DIABETES MELLITUS per A.D.A. criteria. Potassium [Moles/Vol] 4.2 mmol/L 3.5-5.1 [facility] Work Phone: Protein [Mass/Vol] 8.0 g/dL 6.4-8.2 [facility] Work Phone: Sodium [Moles/Vol] 135 mmol/L 136-145 [facility] Work Phone: WBC (Bld) [#/Vol] 8.6 10*3/uL 4.4-11.0 [facility] Work Phone: Blood erythrocytes count (nu mber/volume)on 01-01-2022 RBC (Bld) [#/Vol] 4.72 10*6/uL 4.2-5.[address] [facility] Work Phone: Blood hemoglobin measurement (mass/volume)on 01-01-2022 Hemoglobin (Bld) [Mass/Vol] 13.5 g/dL 12.0-15.0 [facility] Work Phone: Blood platelet mean volumeon 01-01-2022 Platelet mean volume (Bld) [Entitic vol] 11.0 fL 6.2-12.0 [facility] Work Phone: Determination of erythrocyte mean corpuscular volume (MCV)on 01-01-2022 MCV (RBC) [Entitic vol] 86.2 fL 81-99 [facility] Work Phone: Hematocrit Auto (Bld) [Volum e fraction]on 01-01-2022 Hematocrit (Bld) [Volume fraction] 40.7 % 37-47 [facility] Work Phone: Laboratory - Chemistry and C hemistry - challengeon 01-01-2022 ALP [Catalytic activity/Vol] 140 U/L 45-117 [facility] Work Phone: ALT [Catalytic activity/Vol] 35 U/L 13-56 [facility] Work Phone: CO2 [Moles/Vol] 23.0 mmol/L 21.0-32.0 [facility] Work Phone: Globulin (S) [Mass/Vol] 4.9 g/dL 2.2-4.2 [facility] Work Phone: Urea nitrogen/Creatinine [Mass ratio] 13.8 mg/mg 10-20 [facility] Work Phone: Laboratory - Hematology and Cell countson 01-01-2022 Erythrocyte distribution width (RBC) [Entitic vol] 55.6 fL 35.1-43.9 [facility] Work Phone: Erythrocyte distribution width (RBC) [Ratio] 17.5 % 11.6-14.6 [facility] Work Phone: MCH (RBC) [Entitic mass] 28.6 pg 27.0-32.0 [facility] Work Phone: MCHC Auto (RBC) [Mass/Vol]on 01-01-2022 MCHC (RBC) [Mass/Vol] 33.2 g/dL 32-36 [facility] Work Phone: No Panel Informationon 01-01 Estimated GFR (MDRD) Amer 64 mL/min >60 [facility] Work Phone: Comment on above: GFR Calc Estimated GFR (MDRD) Non-Af Amer 53 mL/min >60 [facility] Work Phone: Comment on above: Non- GFR Calc Platelets bldon 01-01-2022 Platelets (Bld) [#/Vol] 141 10*3/uL 150-450 [facility] Work Phone: Serum or plasma albumin kim urement (mass/volume)on 01-01-2022 Albumin [Mass/Vol] 3.1 g/dL 3.2-5.0 [facility] Work Phone: Serum or plasma albumin/glob ulin mass ratioon 01-01-2022 Albumin/Globulin [Mass ratio] 0.6 {ratio} 0.9-2.4 [facility] Work Phone: Serum or plasma calcium kim urement (mass/volume)on 01-01-2022 Calcium [Mass/Vol] 9.3 mg/dL 8.5-10.1 [facility] Work Phone: Serum or plasma creatinine m easurement (mass/volume)on 01-01-2022 Creatinine [Mass/Vol] 1.09 mg/dL 0.55-1.02 [facility] Work Phone: Comment on above: The validity of the calculated GFR & GFRAA in patients over 70 years has not been determined. Clinical correlation is essential. Serum or plasma urea nitroge n measurement (mass/volume)on 01-01-2022 Urea nitrogen [Mass/Vol] 15 mg/dL 7-18 [facility] Work Phone: Thin prep Papanicolaou smear with manual screeningon 01-01-2022 Thin prep Papanicolaou smear with manual screening 36 U/L 15-37 [facility] Work Phone: Thin prep Papanicolaou smear with manual screening 9 5-15 [facility] Work Phone: Whole blood hemoglobin A1c/t otal hemoglobin ratio (mass fraction)on 01-01-2022 HbA1c (Bld) [Mass fraction] 8.7 % 3.8-5.6 [facility] Work Phone: Comment on above: Normal < 5.7 % Predi abetic 5.7 - 6.4 % Diabetic >or= 6.5 % Please note range changes. Basophil percentageon 2021 Bilirubin [Mass/Vol] 0.40 mg/dL 0.20-1.00 [facility] Work Phone: Comment on above: For patients on eltr ombopag therapy, use of Dimension [place] TBIL is not recommended. Chloride [Moles/Vol] 103 mmol/L 98-107 [facility] Work Phone: Glucose [Mass/Vol] 216 mg/dL 74-106 [facility] Work Phone: Comment on above: Glucose result great er than or equal to 200 mg/dLsuggests DIABETES MELLITUS per A.D.A. criteria. Potassium [Moles/Vol] 4.4 mmol/L 3.5-5.1 [facility] Work Phone: Protein [Mass/Vol] 6.5 g/dL 6.4-8.2 [facility] Work Phone: Sodium [Moles/Vol] 136 mmol/L 136-145 [facility] Work Phone: WBC (Bld) [#/Vol] 6.2 10*3/uL 4.4-11.0 [facility] Work Phone: Blood erythrocytes count (nu mber/volume)on 12-01-2021 RBC (Bld) [#/Vol] 4.09 10*6/uL 4.2-5.4 [facility]: Blood hemoglobin measurement (mass/volume)on 12-01-2021 Hemoglobin (Bld) [Mass/Vol] 11.3 g/dL 12.0-15.0 [facility] Work Phone: Blood platelet mean volumeon 12-01-2021 Platelet mean volume (Bld) [Entitic vol] 10.8 fL 6.2-12.0 [facility] Work Phone: Determination of erythrocyte mean corpuscular volume (MCV)on 12-01-2021 MCV (RBC) [Entitic vol] 85.8 fL 81-99 [facility] Work Phone: Comment on above: Delta: 79.2 on 11/27 Hematocrit Auto (Bld) [Volum e fraction]on 12-01-2021 Hematocrit (Bld) [Volume fraction] 35.1 % 37-47 [facility] Work Phone: Laboratory - Chemistry and C hemistry - challengeon 12-01-2021 ALP [Catalytic activity/Vol] 130 U/L 45-117 [facility] Work Phone: ALT [Catalytic activity/Vol] 48 U/L 13-56 [facility] Work Phone: CK [Catalytic activity/Vol] 27 U/L 26-192 [facility] Work Phone: CO2 [Moles/Vol] 27.0 mmol/L 21.0-32.0 [facility] Work Phone: Globulin (S) [Mass/Vol] 4.2 g/dL 2.2-4.2 [facility] Work Phone: Urea nitrogen/Creatinine [Mass ratio] 31.2 mg/mg 10-20 [facility] Work Phone: Laboratory - Hematology and Cell countson 12-01-2021 Erythrocyte distribution width (RBC) [Entitic vol] 48.3 fL 35.1-43.9 [facility] Work Phone: Erythrocyte distribution width (RBC) [Ratio] 15.4 % 11.6-14.6 [facility] Work Phone: MCH (RBC) [Entitic mass] 27.6 pg 27.0-32.0 [facility] Work Phone: MCHC Auto (RBC) [Mass/Vol]on 12-01-2021 MCHC (RBC) [Mass/Vol] 32.2 g/dL 32-36 [facility] Work Phone: Comment on above: Delta: 34.7 on 11/27 No Panel Informationon 12-01 Estimated GFR (MDRD) Amer 91 mL/min >60 [facility] Work Phone: Comment on above: GFR Calc Estimated GFR (MDRD) Non-Af Amer 76 mL/min >60 [facility] Work Phone: Comment on above: Non- GFR Calc Platelets bldon 12-01-2021 Platelets (Bld) [#/Vol] 231 10*3/uL 150-450 [facility] Work Phone: Serum or plasma albumin kim urement (mass/volume)on 12-01-2021 Albumin [Mass/Vol] 2.3 g/dL 3.2-5.0 [facility] Work Phone: Serum or plasma albumin/glob ulin mass ratioon 12-01-2021 Albumin/Globulin [Mass ratio] 0.5 {ratio} 0.9-2.4 [facility] Work Phone: Serum or plasma calcium kim urement (mass/volume)on 12-01-2021 Calcium [Mass/Vol] 8.8 mg/dL 8.5-10.1 [facility] Work Phone: Serum or plasma creatinine m easurement (mass/volume)on 12-01-2021 Creatinine [Mass/Vol] 0.80 mg/dL 0.55-1.02 [facility] Work Phone: Comment on above: The validity of the calculated GFR & GFRAA in patients over 70 years has not been determined. Clinical correlation is essential. Serum or plasma urea nitroge n measurement (mass/volume)on 12-01-2021 Urea nitrogen [Mass/Vol] 25 mg/dL 7-18 [facility] Work Phone: Thin prep Papanicolaou smear with manual screeningon 12-01-2021 Thin prep Papanicolaou smear with manual screening 69 U/L 15-37 [facility] Work Phone: Thin prep Papanicolaou smear with manual screening 6 5-15 [facility] Work Phone: Whole blood hemoglobin A1c/t otal hemoglobin ratio (mass fraction)on 12-01-2021 HbA1c (Bld) [Mass fraction] 10.6 % 3.8-5.6 [facility] Work Phone: Comment on above: Normal < 5.7 % Predi abetic 5.7 - 6.4 % Diabetic >or= 6.5 % Please note range changes. Basophil percentageon 2021 Bilirubin [Mass/Vol] 0.40 mg/dL 0.20-1.00 [facility] Work Phone: Comment on above: For patients on eltr ombopag therapy, use of Dimension [place] TBIL is not recommended. Chloride [Moles/Vol] 102 mmol/L 98-107 [facility] Work Phone: Glucose [Mass/Vol] 256 mg/dL 74-106 [facility] Work Phone: Comment on above: Glucose result great er than or equal to 200 mg/dLsuggests DIABETES MELLITUS per A.D.A. criteria. Potassium [Moles/Vol] 4.4 mmol/L 3.5-5.1 [facility] Work Phone: Protein [Mass/Vol] 7.0 g/dL 6.4-8.2 [facility] Work Phone: Sodium [Moles/Vol] 133 mmol/L 136-145 [facility] Work Phone: WBC (Bld) [#/Vol] 5.6 10*3/uL 4.4-11.0 [facility] Work Phone: Blood erythrocytes count (nu mber/volume)on 11-27-2021 RBC (Bld) [#/Vol] 4.47 10*6/uL 4.2-5.[address] [facility] Work Phone: Blood hemoglobin measurement (mass/volume)on 11-27-2021 Hemoglobin (Bld) [Mass/Vol] 12.3 g/dL 12.0-15.0 [facility] Work Phone: Blood platelet mean volumeon 11-27-2021 Platelet mean volume (Bld) [Entitic vol] 11.9 fL 6.2-12.0 [facility] Work Phone: Determination of erythrocyte mean corpuscular volume (MCV)on 11-27-2021 MCV (RBC) [Entitic vol] 79.2 fL 81-99 [facility] Work Phone: Comment on above: Delta: 83.4 on 11/24 Hematocrit Auto (Bld) [Volum e fraction]on 11-27-2021 Hematocrit (Bld) [Volume fraction] 35.4 % 37-47 [facility] Work Phone: Laboratory - Chemistry and C hemistry - challengeon 11-27-2021 ALP [Catalytic activity/Vol] 127 U/L 45-117 [facility] Work Phone: ALT [Catalytic activity/Vol] 28 U/L 13-56 [facility] Work Phone: CO2 [Moles/Vol] 25.0 mmol/L 21.0-32.0 [facility] Work Phone: Globulin (S) [Mass/Vol] 4.6 g/dL 2.2-4.2 [facility] Work Phone: Urea nitrogen/Creatinine [Mass ratio] 15.9 mg/mg 10-20 [facility] Work Phone: Laboratory - Hematology and Cell countson 11-27-2021 Erythrocyte distribution width (RBC) [Entitic vol] 41.4 fL 35.1-43.9 [facility] Work Phone: Erythrocyte distribution width (RBC) [Ratio] 14.5 % 11.6-14.6 [facility] Work Phone: MCH (RBC) [Entitic mass] 27.5 pg 27.0-32.0 [facility] Work Phone: MCHC Auto (RBC) [Mass/Vol]on 11-27-2021 MCHC (RBC) [Mass/Vol] 34.7 g/dL 32-36 [facility]: No Panel Informationon 11-27 Estimated GFR (MDRD) Amer 108 mL/min >60 [facility] Work Phone: Comment on above: GFR Calc Estimated GFR (MDRD) Non-Af Amer 89 mL/min >60 [facility] Work Phone: Comment on above: Non- GFR Calc Platelets bldon 11-27-2021 Platelets (Bld) [#/Vol] 154 10*3/uL 150-450 [facility] Work Phone: Serum or plasma albumin kim urement (mass/volume)on 11-27-2021 Albumin [Mass/Vol] 2.4 g/dL 3.2-5.0 [facility] Work Phone: Serum or plasma albumin/glob ulin mass ratioon 11-27-2021 Albumin/Globulin [Mass ratio] 0.5 {ratio} 0.9-2.4 [facility] Work Phone: Serum or plasma calcium kim urement (mass/volume)on 11-27-2021 Calcium [Mass/Vol] 8.9 mg/dL 8.5-10.1 [facility] Work Phone: Serum or plasma creatinine m easurement (mass/volume)on 11-27-2021 Creatinine [Mass/Vol] 0.69 mg/dL 0.55-1.02 [facility] Work Phone: Comment on above: The validity of the calculated GFR & GFRAA in patients over 70 years has not been determined. Clinical correlation is essential. Serum or plasma urea nitroge n measurement (mass/volume)on 11-27-2021 Urea nitrogen [Mass/Vol] 11 mg/dL 7-18 [facility] Work Phone: Thin prep Papanicolaou smear with manual screeningon 11-27-2021 Thin prep Papanicolaou smear with manual screening 31 U/L 15-37 [facility] Work Phone: Thin prep Papanicolaou smear with manual screening 6 5-15 [facility] Work Phone: Absolute lymphocyte counton 11-24-2021 Lymphocytes Auto (Unsp spec) [#/Vol] 1.01 10*3/uL 0.83-4.51 [facility] Work Phone: Basophil percentageon 2021 Basophil percentage 3.5 mg/dL 2.5-4.[address] [facility] Work Phone: Basophils/100 WBC (Bld) 0.4 % 0-1 [facility] Work Phone: Bilirubin [Mass/Vol] 0.40 mg/dL 0.20-1.00 [facility] Work Phone: Comment on above: For patients on eltr ombopag therapy, use of Dimension [place] TBIL is not recommended. Chloride [Moles/Vol] 105 mmol/L 98-107 [facility] Work Phone: Eosinophils/100 WBC (Bld) 2.3 % 0-5 [facility] Work Phone: Glucose [Mass/Vol] 321 mg/dL 74-106 [facility] Work Phone: Comment on above: Glucose result great er than or equal to 200 mg/dLsuggests DIABETES MELLITUS per A.D.A. criteria. Neutrophils (Bld) [#/Vol] 3.8 10*3/uL 2.0-7.7 [facility] Work Phone: Neutrophils/100 WBC (Bld) 66.8 % 47-70 [facility] Work Phone: Potassium [Moles/Vol] 4.2 mmol/L 3.5-5.1 [facility] Work Phone: Protein [Mass/Vol] 6.6 g/dL 6.4-8.2 [facility] Work Phone: Sodium [Moles/Vol] 133 mmol/L 136-145 [facility] Work Phone: WBC (Bld) [#/Vol] 5.6 10*3/uL 4.4-11.0 [facility] Work Phone: Blood erythrocytes count (nu mber/volume)on 11-24-2021 RBC (Bld) [#/Vol] 3.91 10*6/uL 4.2-5.[address] [facility] Work Phone: Blood hemoglobin measurement (mass/volume)on 11-24-2021 Hemoglobin (Bld) [Mass/Vol] 11.0 g/dL 12.0-15.0 [facility] Work Phone: Blood lymphocytes/100 leukoc yteson 11-24-2021 Lymphocytes/100 WBC (Bld) 17.9 % 19-41 [facility] Work Phone: Blood monocytes/100 leukocyt eson 11-24-2021 Monocytes/100 WBC (Bld) 12.1 % 0-10 [facility] Work Phone: Blood platelet mean volumeon 11-24-2021 Platelet mean volume (Bld) [Entitic vol] 11.4 fL 6.2-12.0 [facility] Work Phone: Determination of erythrocyte mean corpuscular volume (MCV)on 11-24-2021 MCV (RBC) [Entitic vol] 83.4 fL 81-99 [facility] Work Phone: Glucose Glucometer (BldC) [M ass/Vol]on 11-24-2021 Glucose [Mass/Vol] 307 mg/dL 74-106 [facility] Work Phone: Comment on above: MANAGEMENT OF PATIEN T CARE PER NURSING PROTOCOL Glucose [Mass/Vol] 339 mg/dL 74-106 [facility] Work Phone: Comment on above: MANAGEMENT OF PATIEN T CARE PER NURSING PROTOCOL Hematocrit Auto (Bld) [Volum e fraction]on 11-24-2021 Hematocrit (Bld) [Volume fraction] 32.6 % 37-47 [facility] Work Phone: Laboratory - Chemistry and C hemistry - challengeon 11-24-2021 ALP [Catalytic activity/Vol] 116 U/L 45-117 [facility] Work Phone: ALT [Catalytic activity/Vol] 33 U/L 13-56 [facility] Work Phone: CK [Catalytic activity/Vol] 500 U/L 26-192 [facility] Work Phone: CO2 [Moles/Vol] 22.0 mmol/L 21.0-32.0 [facility] Work Phone: Globulin (S) [Mass/Vol] 4.4 g/dL 2.2-4.2 [facility] Work Phone: Magnesium [Mass/Vol] 2.3 mg/dL 1.6-2.6 [facility] Work Phone: Urea nitrogen/Creatinine [Mass ratio] 24.3 mg/mg 10-20 [facility] Work Phone: Laboratory - Hematology and Cell countson 11-24-2021 Erythrocyte distribution width (RBC) [Entitic vol] 45.1 fL 35.1-43.9 [facility] Work Phone: Erythrocyte distribution width (RBC) [Ratio] 14.9 % 11.6-14.6 [facility] Work Phone: Immature granulocytes/100 WBC (Bld) 0.500 % 0.0-0.9 [facility] Work Phone: Comment on above: IG% - Immature Granu locytes (promyelocytes, myelocytes and metamyelocytes) > 1% indicates that a LEFT SHIFT is Present. MCH (RBC) [Entitic mass] 28.1 pg 27.0-32.0 [facility] Work Phone: Nucleated RBC/100 WBC (Bld) [Ratio] 0 % 0-5 [facility] Work Phone: MCHC Auto (RBC) [Mass/Vol]on 11-24-2021 MCHC (RBC) [Mass/Vol] 33.7 g/dL 32-36 [facility] Work Phone: No Panel Informationon 11-24 Estimated Creatinine Clearance Calc 51.54 ml/min [facility] Work Phone: Estimated GFR (MDRD) Amer 76 mL/min >60 [facility] Work Phone: Comment on above: GFR Calc Estimated GFR (MDRD) Non-Af Amer 62 mL/min >60 [facility] Work Phone: Comment on above: Non- GFR Calc Platelets bldon 11-24-2021 Platelets (Bld) [#/Vol] 107 10*3/uL 150-450 [facility] Work Phone: Serum or plasma albumin kim urement (mass/volume)on 11-24-2021 Albumin [Mass/Vol] 2.2 g/dL 3.2-5.0 [facility] Work Phone: Serum or plasma albumin/glob ulin mass ratioon 11-24-2021 Albumin/Globulin [Mass ratio] 0.5 {ratio} 0.9-2.4 [facility] Work Phone: Serum or plasma calcium kim urement (mass/volume)on 11-24-2021 Calcium [Mass/Vol] 8.5 mg/dL 8.5-10.1 [facility] Work Phone: Serum or plasma creatinine m easurement (mass/volume)on 11-24-2021 Creatinine [Mass/Vol] 0.94 mg/dL 0.55-1.02 [facility] Work Phone: Comment on above: The validity of the calculated GFR & GFRAA in patients over 70 years has not been determined. Clinical correlation is essential. Serum or plasma urea nitroge n measurement (mass/volume)on 11-24-2021 Urea nitrogen [Mass/Vol] 23 mg/dL 7-18 [facility] Work Phone: Thin prep Papanicolaou smear with manual screeningon 11-24-2021 Thin prep Papanicolaou smear with manual screening 49 U/L 15-37 [facility] Work Phone: Thin prep Papanicolaou smear with manual screening 6 5-15 [facility] Work Phone: Absolute lymphocyte counton 11-22-2021 Lymphocytes Auto (Unsp spec) [#/Vol] 0.27 10*3/uL 0.83-4.51 [facility] Work Phone: Basophil percentageon 2021 Lactate [Moles/Vol] 2.7 mmol/L 0.4-2.[address] [facility] Work Phone: Comment on above: Critical Result(s) C alled at: 19:01:05 11/22/2021 by: Sintia Hernandez to Pamela Ely Results read back by same. Basophil percentage >100 SEEN /hpf 0-5 [facility] Work Phone: Lactate [Moles/Vol] 4.1 mmol/L 0.4-2.[address] [facility] Work Phone: Comment on above: Critical Result(s) C alled at: 14:35:39 11/22/2021 by: Derik Florez. Milad Cordova RN (ER). Results read back by same. Basophils/100 WBC (Bld) 0.3 % 0-1 [facility] Work Phone: Bilirubin [Mass/Vol] 1.00 mg/dL 0.20-1.00 [facility] Work Phone: Comment on above: For patients on eltr ombopag therapy, use of Dimension [place] TBIL is not recommended. Chloride [Moles/Vol] 97 mmol/L 98-107 [facility] Work Phone: Eosinophils/100 WBC (Bld) 0.0 % 0-5 [facility] Work Phone: Glucose [Mass/Vol] 358 mg/dL 74-106 [facility] Work Phone: Comment on above: Glucose result great er than or equal to 200 mg/dLsuggests DIABETES MELLITUS per A.D.A. criteria. Neutrophils (Bld) [#/Vol] 2.6 10*3/uL 2.0-7.7 [facility] Work Phone: Neutrophils/100 WBC (Bld) 89.3 % 47-70 [facility] Work Phone: Potassium [Moles/Vol] 4.9 mmol/L 3.5-5.1 [facility] Work Phone: Comment on above: Moderate Hemolysis, Result may be falsely increased. Protein [Mass/Vol] 7.8 g/dL 6.4-8.2 [facility] Work Phone: Sodium [Moles/Vol] 130 mmol/L 136-145 [facility] Work Phone: WBC (Bld) [#/Vol] 2.9 10*3/uL 4.4-11.0 [facility] Work Phone: Bilirubin Test strip Ql (U)o n 11-22-2021 Bilirubin Ql (U) Negative Negative [facility] Work Phone: Blood erythrocytes count (nu mber/volume)on 11-22-2021 RBC (Bld) [#/Vol] 4.66 10*6/uL 4.2-5.[address] [facility] Work Phone: Blood hemoglobin measurement (mass/volume)on 11-22-2021 Hemoglobin (Bld) [Mass/Vol] 12.9 g/dL 12.0-15.0 [facility] Work Phone: Blood lymphocytes/100 leukoc yteson 11-22-2021 Lymphocytes/100 WBC (Bld) 9.4 % 19-41 [facility] Work Phone: Blood manual differential co mment interpretation (narrative result)on 11-22-2021 Manual differential comment Neftali (Bld) [Interp] SCANNED [facility] Work Phone: Comment on above: FEW BANDS NOTED Blood monocytes/100 leukocyt eson 11-22-2021 Monocytes/100 WBC (Bld) 0.7 % 0-10 [facility] Work Phone: Blood platelet mean volumeon 11-22-2021 Platelet mean volume (Bld) [Entitic vol] 11.0 fL 6.2-12.0 [facility] Work Phone: Determination of erythrocyte mean corpuscular volume (MCV)on 11-22-2021 MCV (RBC) [Entitic vol] 83.7 fL 81-99 [facility] Work Phone: Hematocrit Auto (Bld) [Volum e fraction]on 11-22-2021 Hematocrit (Bld) [Volume fraction] 39.0 % 37-47 [facility] Work Phone: INR in Blood by Coagulation assayon 11-22-2021 INR Coag (Bld) [Relative time] 1.6 {INR} [facility] Work Phone: Ketones Test strip Ql (U)on 11-22-2021 Ketones Ql (U) 15 mg/dl Negative [facility] Work Phone: Laboratory - Chemistry and C hemistry - challengeon 11-22-2021 ALP [Catalytic activity/Vol] 170 U/L 45-117 [facility] Work Phone: ALT [Catalytic activity/Vol] 33 U/L 13-56 [facility] Work Phone: CO2 [Moles/Vol] 22.0 mmol/L 21.0-32.0 [facility] Work Phone: Globulin (S) [Mass/Vol] 5.0 g/dL 2.2-4.2 [facility] Work Phone: Urea nitrogen/Creatinine [Mass ratio] 19.1 mg/mg 10-20 [facility] Work Phone: Laboratory - Coagulationon 0 11-22-2021 aPTT Coag (Bld) [Time] 33.5 s 24.1-36.2 [facility] Work Phone: PT Coag (PPP) [Time] 18.6 s 11.7-14.9 [facility] Work Phone: Laboratory - Hematology and Cell countson 11-22-2021 Erythrocyte distribution width (RBC) [Entitic vol] 44.4 fL 35.1-43.9 [facility] Work Phone: Erythrocyte distribution width (RBC) [Ratio] 14.6 % 11.6-14.6 [facility] Work Phone: Immature granulocytes/100 WBC (Bld) 0.300 % 0.0-0.9 [facility] Work Phone: Comment on above: IG% - Immature Granu locytes (promyelocytes, myelocytes and metamyelocytes) > 1% indicates that a LEFT SHIFT is Present. MCH (RBC) [Entitic mass] 27.7 pg 27.0-32.0 [facility] Work Phone: Nucleated RBC/100 WBC (Bld) [Ratio] 0 % 0-5 [facility] Work Phone: Laboratory - Microbiology an d Antimicrobial susceptibilityon 11-22-2021 SARS-CoV-2 (COVID-19) RNA SALLY+probe Ql (Unsp spec) Not detected Not Detect [facility] Work Phone: Comment on above: Normal [...] 11-22-2021 MCHC (RBC) [Mass/Vol] 33.1 g/dL 32-36 [facility]: Mucus LM Ql (Urine sed)on Mucus Ql (Urine sed) 0 SEEN /hpf [facility] Work Phone: Nitrite Test strip Ql (U)on 11-22-2021 Nitrite Ql (U) Negative Negative [facility] Work Phone: No Panel Informationon 11-22 Troponin I High Sensitivity 217 pg/mL 3.0-54.0 [facility] Work Phone: Comment on above: Critical Result(s) C alled at: 20:27:57 11/22/2021 by: Sintia Hernandez to Anthony Butcher. Results read back by same. Please Note: New Test Units and Gender Specific Reference Ranges. For more information see Policy Stat Procedure [place] High Sensitivity Troponin (TNIH) and attachments. Troponin I High Sensitivity 274 pg/mL 3.0-54.0 [facility] Work Phone: Comment on above: Critical Result(s) C alled at: 17:12:08 11/22/2021 by: Sintia Hernandez by Lila Cordova. Results read back by same. Please Note: New Test Units and Gender Specific Reference Ranges. For more information see Policy Stat Procedure [place] High Sensitivity Troponin (TNIH) and attachments. Estimated Creatinine Clearance Calc 34.36 ml/min [facility] Work Phone: Estimated GFR (MDRD) Amer 48 mL/min >60 [facility] Work Phone: Comment on above: GFR Calc Estimated GFR (MDRD) Non-Af Amer 39 mL/min >60 [facility] Work Phone: Comment on above: Non- GFR Calc Platelets bldon 11-22-2021 Platelets (Bld) [#/Vol] 121 10*3/uL 150-450 [facility] Work Phone: Protein Test strip Ql (U)on 11-22-2021 Protein Ql (U) 100 mg/dl Negative [facility] Work Phone: Review by pathologiston 11-04 Pathologist review Neftali (Unsp spec) [Interp] May foll [facility] Work Phone: Pathologist review Neftali (Unsp spec) [Interp] Reviewed [facility] Work Phone: Comment on above: Previous reported re sult: Analisa jacobson Edited by: BELLA on 11/23/21:[id number] Thrombocytopenia.Clinical correlation necessary.Cedric Cardoza M.D. 11/23/21 AMENDED REPORT 11/23/21 [id number] PATH REV previously reported as: Analisa jacobson Serum or plasma albumin kim urement (mass/volume)on 11-22-2021 Albumin [Mass/Vol] 2.8 g/dL 3.2-5.0 [facility] Work Phone: Serum or plasma albumin/glob ulin mass ratioon 11-22-2021 Albumin/Globulin [Mass ratio] 0.6 {ratio} 0.9-2.4 [facility] Work Phone: Serum or plasma calcium kim urement (mass/volume)on 11-22-2021 Calcium [Mass/Vol] 8.9 mg/dL 8.5-10.1 [facility] Work Phone: Serum or plasma creatinine m easurement (mass/volume)on 11-22-2021 Creatinine [Mass/Vol] 1.41 mg/dL 0.55-1.02 [facility] Work Phone: Comment on above: The validity of the calculated GFR & GFRAA in patients over 70 years has not been determined. Clinical correlation is essential. Serum or plasma urea nitroge n measurement (mass/volume)on 11-22-2021 Urea nitrogen [Mass/Vol] 27 mg/dL 7-18 [facility] Work Phone: Squamous epithelial cells de tection in urine sediment by light microscopyon 11-22-2021 Epithelial cells.squamous LM Ql (Urine sed) 0 SEEN /hpf 5-10 [facility] Work Phone: Thin prep Papanicolaou smear with manual screeningon 11-22-2021 Thin prep Papanicolaou smear with manual screening 65 U/L 15-37 [facility] Work Phone: Comment on above: Moderate Hemolysis, Result may be falsely increased. Thin prep Papanicolaou smear with manual screening 11 5-15 [facility] Work Phone: Urine blood detectionon 11-04 RBC Ql (U) 250 /ul Negative [facility] Work Phone: RBC Ql (U) 0 SEEN /hpf 0-5 [facility] Work Phone: Urine clarityon 11-22-2021 Clarity (U) Cloudy Clear [facility] Work Phone: Urine color determinationon 11-22-2021 Color (U) Yellow Yellow [facility] Work Phone: Urine glucose detectionon Glucose Ql (U) 250 mg/dl Normal [facility] Work Phone: Urine leukocyte esterase det ection by dipstickon 11-22-2021 Leukocyte esterase Test strip Ql (U) 500 /ul Negative [facility] Work Phone: Urine pHon 11-22-2021 pH (U) 6.0 [pH] 5.0 - 8.0 [facility] Work Phone: Urine sediment bacteria coun t by microscopy (number/high power field)on 11-22-2021 Bacteria LM.HPF (Urine sed) [#/Area] 3 /[HPF] None Seen [facility] Work Phone: Urine specific gravity measu rementon 11-22-2021 Specific gravity (U) [Rel density] 1.020 1.002-1.03 0 [facility] Work Phone: Urobilinogen Auto test strip Ql (U)on 11-22-2021 Urobilinogen Ql (U) Normal mg/dl Normal [facility] Work Phone: Whole blood hemoglobin A1c/t otal hemoglobin ratio (mass fraction)on 11-22-2021 HbA1c (Bld) [Mass fraction] 10.2 % 3.8-5.6 [facility] Work Phone: Comment on above: Normal < 5.7 % Predi abetic 5.7 - 6.4 % Diabetic >or= 6.5 % Please note range changes. Whole blood hemoglobin A1c/t otal hemoglobin ratio (mass fraction)on 10-27-2021 HbA1c (Bld) [Mass fraction] 8.3 % 3.8-5.6 [facility] Work Phone: Comment on above: Normal < 5.7 % Predi abetic 5.7 - 6.4 % Diabetic >or= 6.5 % Please note range changes. Absolute lymphocyte counton 10-13-2021 Lymphocytes Auto (Unsp spec) [#/Vol] 1.22 10*3/uL 0.83-4.51 [facility] Work Phone: Basophil percentageon 2021 Basophils/100 WBC (Bld) 0.3 % 0-1 [facility] Work Phone: Bilirubin [Mass/Vol] 0.50 mg/dL 0.20-1.00 [facility] Work Phone: Comment on above: For patients on eltr ombopag therapy, use of Dimension [place] TBIL is not recommended. Chloride [Moles/Vol] 102 mmol/L 98-107 [facility] Work Phone: Eosinophils/100 WBC (Bld) 1.7 % 0-5 [facility] Work Phone: Glucose [Mass/Vol] 259 mg/dL 74-106 [facility] Work Phone: Comment on above: Glucose result great er than or equal to 200 mg/dLsuggests DIABETES MELLITUS per A.D.A. criteria. Neutrophils (Bld) [#/Vol] 5.1 10*3/uL 2.0-7.7 [facility] Work Phone: Neutrophils/100 WBC (Bld) 70.8 % 47-70 [facility] Work Phone: Potassium [Moles/Vol] 4.4 mmol/L 3.5-5.1 [facility] Work Phone: Protein [Mass/Vol] 7.4 g/dL 6.4-8.2 [facility] Work Phone: Sodium [Moles/Vol] 134 mmol/L 136-145 [facility] Work Phone: WBC (Bld) [#/Vol] 7.1 10*3/uL 4.4-11.0 [facility] Work Phone: Blood erythrocytes count (nu mber/volume)on 10-13-2021 RBC (Bld) [#/Vol] 4.21 10*6/uL 4.2-5.[address] [facility] Work Phone: Blood hemoglobin measurement (mass/volume)on 10-13-2021 Hemoglobin (Bld) [Mass/Vol] 12.1 g/dL 12.0-15.0 [facility] Work Phone: Blood lymphocytes/100 leukoc yteson 10-13-2021 Lymphocytes/100 WBC (Bld) 17.1 % 19-41 [facility] Work Phone: Blood monocytes/100 leukocyt eson 10-13-2021 Monocytes/100 WBC (Bld) 9.8 % 0-10 [facility] Work Phone: Blood platelet mean volumeon 10-13-2021 Platelet mean volume (Bld) [Entitic vol] 10.7 fL 6.2-12.0 [facility] Work Phone: Determination of erythrocyte mean corpuscular volume (MCV)on 10-13-2021 MCV (RBC) [Entitic vol] 86.2 fL 81-99 [facility] Work Phone: Hematocrit Auto (Bld) [Volum e fraction]on 10-13-2021 Hematocrit (Bld) [Volume fraction] 36.3 % 37-47 [facility] Work Phone: Laboratory - Chemistry and C hemistry - challengeon 10-13-2021 ALP [Catalytic activity/Vol] 169 U/L 45-117 [facility] Work Phone: ALT [Catalytic activity/Vol] 31 U/L 13-56 [facility] Work Phone: CO2 [Moles/Vol] 25.0 mmol/L 21.0-32.0 [facility] Work Phone: Globulin (S) [Mass/Vol] 4.5 g/dL 2.2-4.2 [facility] Work Phone: Urea nitrogen/Creatinine [Mass ratio] 14.3 mg/mg 10-20 [facility] Work Phone: Laboratory - Hematology and Cell countson 10-13-2021 Erythrocyte distribution width (RBC) [Entitic vol] 45.6 fL 35.1-43.9 [facility] Work Phone: Erythrocyte distribution width (RBC) [Ratio] 14.4 % 11.6-14.6 [facility] Work Phone: Immature granulocytes/100 WBC (Bld) 0.300 % 0.0-0.9 [facility] Work Phone: Comment on above: IG% - Immature Granu locytes (promyelocytes, myelocytes and metamyelocytes) > 1% indicates that a LEFT SHIFT is Present. MCH (RBC) [Entitic mass] 28.7 pg 27.0-32.0 [facility] Work Phone: Nucleated RBC/100 WBC (Bld) [Ratio] 0 % 0-5 [facility] Work Phone: MCHC Auto (RBC) [Mass/Vol]on 10-13-2021 MCHC (RBC) [Mass/Vol] 33.3 g/dL 32-36 [facility] Work Phone: No Panel Informationon 10-13 Estimated GFR (MDRD) Amer 79 mL/min >60 [facility] Work Phone: Comment on above: GFR Calc Estimated GFR (MDRD) Non-Af Amer 66 mL/min >60 [facility] Work Phone: Comment on above: Non- GFR Calc Vitamin D 25-Hydroxy 67.4 ng/mL [facility] Work Phone: Comment on above: Vitamin D 25(OH) Sta tus Range Deficiency <20 ng/mL (50nmol/L) Insufficiency 20 - 30 ng/mL (50 - 75 nmol/L) Sufficiency 30 - 100 ng/mL (75 - 250 nmol/L) Toxicity >100 ng/mL (>250 nmol/L) Platelets bldon 10-13-2021 Platelets (Bld) [#/Vol] 158 10*3/uL 150-450 [facility] Work Phone: Serum or plasma albumin kim urement (mass/volume)on 10-13-2021 Albumin [Mass/Vol] 2.9 g/dL 3.2-5.0 [facility] Work Phone: Serum or plasma albumin/glob ulin mass ratioon 10-13-2021 Albumin/Globulin [Mass ratio] 0.6 {ratio} 0.9-2.4 [facility] Work Phone: Serum or plasma calcium kim urement (mass/volume)on 10-13-2021 Calcium [Mass/Vol] 8.8 mg/dL 8.5-10.1 [facility] Work Phone: Serum or plasma creatinine m easurement (mass/volume)on 10-13-2021 Creatinine [Mass/Vol] 0.91 mg/dL 0.55-1.02 [facility] Work Phone: Comment on above: The validity of the calculated GFR & GFRAA in patients over 70 years has not been determined. Clinical correlation is essential. Serum or plasma urea nitroge n measurement (mass/volume)on 10-13-2021 Urea nitrogen [Mass/Vol] 13 mg/dL 7-18 [facility] Work Phone: Thin prep Papanicolaou smear with manual screeningon 10-13-2021 Thin prep Papanicolaou smear with manual screening 28 U/L 15-37 [facility] Work Phone: Thin prep Papanicolaou smear with manual screening 7 5-15 [facility] Work Phone: CNOVSPon 10-02-2021 CNOVSP Visit (SP) Office (ROGELIO) ----- VIDA NINA ([id number]) 1950 F Date Time Provider Department 10/02/21 1:00 PM JENNIFER CUEVAS During your visit today, we recorded the following information about you: Temperature Pulse Respiration Blood pressure 97.4 degrees 103/minute 20/minute 152/85 Weight Height 136.5 kg 1.651 m Moriah Aldridge RN 10/02/2021 12:52 PM Signed Patient arrived [place] [id number] in [facility] for post op visit. Patient admits to pain in abd and lower back resolved since surgery. Pt denies any new concerns, today. Pt here with Marguerite, friend. Enc and support provided. JESUS Lynch MD 12/01/2021 8:04 AM Signed Gynecologic Oncology [facility] Follow up visit Date of service: 10/02/2021 PROBLEM/CC: Vida Nina presents for a post-op visit. SURGICAL PATHOLOGY [[id number]] Collected: 09/07/21 1104 Order Status: Completed Specimen: Tissue from UTERUS, CERVIX, BILATERAL FALLOPIAN TUBES AND BILATERAL OVARIES Updated: 09/11/21 1319 Case Report -- Surgical Pathology Report ? Case: [id number] ? Authorizing Provider: ?Jennifer Cuevas MD ? [...] A11 and A16 were reviewed at the [facility] gynecologic pathology consensus conference via telepathology on 09/09/[address] Lupe Younger and Andra Franco agree with the diagnosis of acute salpingitis. ? Laboratory Developed Test (LDT) Disclaimer: Performance characteristics of immunohistochemical, immunofluorescent and chromogenic in-situ hybridization tests have been determined by the performing laboratory within [facility]?s [facility] [place] ([facility], [facility], [facility] or [facility]) in a manner consistent with CLIA [...] ass/Vol]on 09-22-2021 Glucose [Mass/Vol] 145 mg/dL 74-106 [facility] Work Phone: Comment on above: MANAGEMENT OF PATIEN T CARE PER NURSING PROTOCOL Darren 09-21-2021 CNPN Telephone (ÁNGEL Sprague) ----- VIDA NINA ([id number]) 1950 F Date Time Provider Department 09/21/21 JENNIFER CUEVAS During your visit today, we recorded the following information about you: Jeffrey Ferris 09/21/2021 12:15 PM Signed Spoke to Nurse Bernadine from [facility] stated that the patient is in [...] ERYTHEMATOSUS [M32.9] 07/15/2005 MYALGIA AND MYOSITIS NOS [[id number]] 07/15/2005 Elevated transaminase level [R74.01] 09/04/2014 Elevated blood sugar [R73.9] 09/04/2014 Mood disorder (HCC) [F39] 09/04/2014 Hard to intubate [T88.4XXA] 09/07/2021 Encounter for postoperative care [Z48.89] 09/07/2021 Endometrial cancer (HCC) [C54.1] 09/08/2021 Encounter Status:Closed by JEFFREY FERRIS on 09/21/21 Normal [facility] Absolute lymphocyte counton 09-20-2021 Lymphocytes Auto (Unsp spec) [#/Vol] 0.99 10*3/uL 0.83-4.51 [facility] Work Phone: Basophil percentageon 2021 Basophils/100 WBC (Bld) 0.6 % 0-1 [facility] Work Phone: Chloride [Moles/Vol] 109 mmol/L 98-107 [facility] Work Phone: Eosinophils/100 WBC (Bld) 2.6 % 0-5 [facility] Work Phone: Glucose [Mass/Vol] 211 mg/dL 74-106 [facility] Work Phone: Comment on above: Glucose result great er than or equal to 200 mg/dLsuggests DIABETES MELLITUS per A.D.A. criteria. Neutrophils (Bld) [#/Vol] 3.4 10*3/uL 2.0-7.7 [facility] Work Phone: Neutrophils/100 WBC (Bld) 67.6 % 47-70 [facility] Work Phone: Potassium [Moles/Vol] 4.4 mmol/L 3.5-5.1 [facility] Work Phone: Sodium [Moles/Vol] 138 mmol/L 136-145 [facility] Work Phone: WBC (Bld) [#/Vol] 5.0 10*3/uL 4.4-11.0 [facility] Work Phone: Blood erythrocytes count (nu mber/volume)on 09-20-2021 RBC (Bld) [#/Vol] 4.50 10*6/uL 4.2-5.[address] [facility] Work Phone: Blood hemoglobin measurement (mass/volume)on 09-20-2021 Hemoglobin (Bld) [Mass/Vol] 12.8 g/dL 12.0-15.0 [facility] Work Phone: Blood lymphocytes/100 leukoc yteson 09-20-2021 Lymphocytes/100 WBC (Bld) 19.7 % 19-41 [facility] Work Phone: Blood monocytes/100 leukocyt eson 09-20-2021 Monocytes/100 WBC (Bld) 9.1 % 0-10 [facility] Work Phone: Blood platelet mean volumeon 09-20-2021 Platelet mean volume (Bld) [Entitic vol] 9.8 fL 6.2-12.0 [facility] Work Phone: Determination of erythrocyte mean corpuscular volume (MCV)on 09-20-2021 MCV (RBC) [Entitic vol] 87.6 fL 81-99 [facility] Work Phone: Hematocrit Auto (Bld) [Volum e fraction]on 09-20-2021 Hematocrit (Bld) [Volume fraction] 39.4 % 37-47 [facility] Work Phone: Laboratory - Chemistry and C hemistry - challengeon 09-20-2021 CO2 [Moles/Vol] 24.0 mmol/L 21.0-32.0 [facility] Work Phone: Natriuretic peptide B (Bld) [Mass/Vol] 43.0 pg/mL 0-100 [facility] Work Phone: Urea nitrogen/Creatinine [Mass ratio] 14.0 mg/mg 10-20 [facility] Work Phone: Laboratory - Hematology and Cell countson 09-20-2021 Erythrocyte distribution width (RBC) [Entitic vol] 47.4 fL 35.1-43.9 [facility] Work Phone: Erythrocyte distribution width (RBC) [Ratio] 14.7 % 11.6-14.6 [facility] Work Phone: Immature granulocytes/100 WBC (Bld) 0.400 % 0.0-0.9 [facility] Work Phone: Comment on above: IG% - Immature Granu locytes (promyelocytes, myelocytes and metamyelocytes) > 1% indicates that a LEFT SHIFT is Present. MCH (RBC) [Entitic mass] 28.4 pg 27.0-32.0 [facility] Work Phone: Nucleated RBC/100 WBC (Bld) [Ratio] 0 % 0-5 [facility] Work Phone: MCHC Auto (RBC) [Mass/Vol]on 09-20-2021 MCHC (RBC) [Mass/Vol] 32.5 g/dL 32-36 [facility] Work Phone: No Panel Informationon 09-20 Troponin I High Sensitivity < 3 pg/mL 3.0-54.0 [facility] Work Phone: Comment on above: Please Note: New Emma t Units and Gender Specific Reference Ranges. For more information see Policy Stat Procedure [place] High Sensitivity Troponin (TNIH) and attachments. D-Dimer Quantitative (PE/DVT) 2.47 FEU/ug/m 0.27-0.49 [facility] Work Phone: Comment on above: D-Dimer ELEVATED (>0 .49): Additional studies and clinicalassessments are indicated to conclude diagnosis of:Deep Vein Thrombosis (DVT) or Pulmonary Embolism (PE)CRITICAL VALUE VERIFIED. CALLED TO [id number]/17/22 0853 Taniya Burden.RESULTS READ BACK BY SAME . Estimated Creatinine Clearance Calc 56.34 ml/min [facility] Work Phone: Estimated GFR (MDRD) Amer 85 mL/min >60 [facility] Work Phone: Comment on above: GFR Calc Estimated GFR (MDRD) Non-Af Amer 70 mL/min >60 [facility] Work Phone: Comment on above: Non- GFR Calc Platelets bldon 09-20-2021 Platelets (Bld) [#/Vol] 161 10*3/uL 150-450 [facility] Work Phone: Serum or plasma calcium kim urement (mass/volume)on 09-20-2021 Calcium [Mass/Vol] 9.4 mg/dL 8.5-10.1 [facility] Work Phone: Serum or plasma creatinine m easurement (mass/volume)on 09-20-2021 Creatinine [Mass/Vol] 0.86 mg/dL 0.55-1.02 [facility] Work Phone: Comment on above: The validity of the calculated GFR & GFRAA in patients over 70 years has not been determined. Clinical correlation is essential. Serum or plasma urea nitroge n measurement (mass/volume)on 09-20-2021 Urea nitrogen [Mass/Vol] 12 mg/dL 7-18 [facility] Work Phone: Thin prep Papanicolaou smear with manual screeningon 09-20-2021 Thin prep Papanicolaou smear with manual screening 5-15 [facility] Work Phone: OPERATIVE NOon 09-17-2021 OPERATIVE NO HNO ID: [id number] Author: Jennifer Cuevas MD Service: Gynecology Oncology Author Type: Physician Type: Operative Report Filed: 09/23/2021 10:50 AM Note Text: [facility] - Operative Report VIDA NINA : 1950 AGE: 70. SEX: F PATIENT TYPE: I [facility]: O[facility] LOCATION: [facility] ATTENDING PHYSICIAN: Jennifer Cuevas M.D. CSN NUMBER: [id number] DATE OF SURGERY/PROCEDURE: 09/07/2021 INCISION/PROCEDURE START TIME: 09:14 a.m. INCISION CLOSE/PROCEDURE END TIME: 12:36 p.m. 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 SURGEON: Jennifer Cuevas M.D. FILLING MACHINE TENDER: assistant health educator, Dr. Donal Naidu and Dr. Shanon Seymour. [...] n 09-10-2021 Bilirubin Ql (U) Negative Negative [facility] Work Phone: Darren 09-10-2021 SHORTY Telephone (JOSE MANUELYNONPO B) ----- VIDA NINA ([id number]) 1950 F Date Time Provider Department 09/10/21 TANIYA BALDERAS During your visit today, we recorded the following information about you: Taniya Balderas APRN.MICHELLE 09/10/2021 8:32 AM Signed Called [facility] left message on nurse line to [...] to. meds that are susceptible are iv. skilled nursing can recheck urine if still + then would need to get ID involved verbal instructions per Dr julieth Balderas APRN.[facility] Allergies As of Date: 09/10/2021 Noted [...] ERYTHEMATOSUS [M32.9] 07/15/2005 MYALGIA AND MYOSITIS NOS [[id number]] 07/15/2005 Elevated transaminase level [R74.01] 09/04/2014 Elevated blood sugar [R73.9] 09/04/2014 Mood disorder (HCC) [F39] 09/04/2014 Hard to intubate [T88.4XXA] 09/07/2021 Encounter for postoperative care [Z48.89] 09/07/2021 Endometrial cancer (HCC) [C54.1] 09/08/2021 Encounter Status:Closed by TANIYA BALDERAS on 09/10/21 [facility] Culture, urineon 09-10-2021 Bacteria identified Cx Nom (U) Negative [facility] Work Phone: Ketones Test strip Ql (U)on 09-10-2021 Ketones Ql (U) Negative Negative [facility] Work Phone: Nitrite Test strip Ql (U)on 09-10-2021 Nitrite Ql (U) Negative Negative [facility] Work Phone: Protein Test strip Ql (U)on 09-10-2021 Protein Ql (U) Negative Negative [facility] Work Phone: Urine blood detectionon 04-0 RBC Ql (U) 25 /ul Negative [facility] Work Phone: Urine clarityon 09-10-2021 Clarity (U) Clear Clear [facility] Work Phone: Urine color determinationon 09-10-2021 Color (U) Yellow Yellow [facility] Work Phone: Urine glucose detectionon Glucose Ql (U) Normal mg/dl Normal [facility] Work Phone: Urine leukocyte esterase det ection by dipstickon 09-10-2021 Leukocyte esterase Test strip Ql (U) 25 /ul Negative [facility] Work Phone: Urine pHon 09-10-2021 pH (U) 7.0 [pH] 5.0 - 8.0 [facility] Work Phone: Urine specific gravity measu rementon 09-10-2021 Specific gravity (U) [Rel density] 1.005 1.002-1.03 0 [facility] Work Phone: Urobilinogen Auto test strip Ql (U)on 09-10-2021 Urobilinogen Ql (U) Normal mg/dl Normal [facility] Work Phone: ANES POSTPROC EVALon 022 ANES POSTPROC EVAL HNO ID: [id number] Author: Darrion Payne MD Service: Anesthesiology Author Type: Physician Type: Anesthesia Postprocedure Evaluation Filed: 09/09/2021 12:30 PM Note Text: POST ANESTHESIA EVALUATION NOTE : 1950 Procedure Summary Date: 09/07/21 Room / Location: DC OR [address] [place] [address] OR Anesthesia Start: 812 Anesthesia Stop: 1242 [...] September 09, 2021 TIME: 12:30 PM CSN: [id number] [facility] CNPElva 09-09-2021 MICHELLEN Telephone (ÁNGEL Sprague) ----- VIDA NINA ([id number]) 1950 F Date Time Provider Department 09/09/21 JENNIFER CUEVAS During your visit today, we recorded the following information about you: Summer Turcios RN 09/09/2021 2:15 PM Signed Franklin, nursing education specialist at [facility] called stated, "one of patient's lap [...] confidential e-mail) Attempted to call Franklin at [facility] to review above message, no answer. Left message on voicemail to return call. JESUS Shah RN 09/09/2021 2:53 PM Signed Franklin from [facility] returned call to this RN. Reviewed [...] ERYTHEMATOSUS [M32.9] 07/15/2005 MYALGIA AND MYOSITIS NOS [[id number]] 07/15/2005 Elevated transaminase level [R74.01] 09/04/2014 Elevated blood sugar [R73.9] 09/04/2014 Mood disorder (HCC) [F39] 09/04/2014 Hard to intubate [T88.4XXA] 09/07/2021 Encounter for postoperative care [Z48.89] 09/07/2021 Endometrial cancer (HCC) [C54.1] 09/08/2021 Encounter Status:Closed by SUMMER TURCIOS on 09/09/21 [facility] CASE MANAGEMon 09-08-2021 CASE MANAGEM HNO ID: [id number] Author: Rosmery Mclaughlin RN Service: ? Author [...] Other Caregiver Other Caregiver Name/Phone: [facility] is aware of DC and machine operator hop picker time. RN to call report. TRANSPORTATION ARRANGEMENTS: Transportation Arrangements: ([facility]) ADDITIONAL CONTACT RESOURCES: n/a DC orders completed. Patient is discharging back to [facility] [place]. The facility has arranged for [facility] transport to pick her up at 1pm. RN is aware. Met with patient at bedside to notify of DC and transport time. SIGNATURE: Rosmery Mclaughlin RN PATIENT NAME: Vida Nina DATE: September 08, 2021 TIME: 12:28 PM PAGER/CONTACT #: [phone] [facility] HNO ID: [id number] Author: Rosmery Mclaughlin RN Service: ? Author Type: Registered Nurse Type: Care Mgt Initial Assessment Filed: 09/08/2021 10:24 AM Note Text: CARE MANAGEMENT: ASSESSMENT AND DISCHARGE PLAN SERVICE DATE: September 08, 2021 SERVICE TIME: 10:22 AM PRIMARY CARE PHYSICIAN: No primary care provider on file. Phone: None ADMISSION STATUS: Inpatient Needs Prior to Discharge: Discharge Transportation MEDICAL: [facility] MEDICARE Patient/Research Chemist Stated Goals: To return home to life as it was;To have reduction in pain Health Insurance: [facility];Medicare;Medicaid Health Issues Impacting Discharge Plan: Newly diagnosed [...] None Has the Patient Been in a Assisted Facility in the Past 30 days?: No [...] plan for meeting these needs: return to [place] Patient's perception of need for this admission: surgery Are you interested in bedside delivery of your medications? No Is Patient Psychosocially Complex?: No ASSESSMENT AND PLAN: Medical Needs: Medical Needs: Two or more chronic diseases Psychosocial Needs: Psychosocial Needs: None FREEDOM OF CHOICE EXPLAINED: [place] of Choice Given: No Reason Not Given: Patient refused (patient prefers to return to [facility]) POTENTIAL TRANSITION PLANS Home Chart reviewed and met with patient. She is from [facility]. Needs assistance SCHEDULER, uses no DME. Plan is to return to [place]. Spoke with Zari at [facility]. They will send [email or web address] transport to machine operator hop picker patient at 1pm. Will updated patient and RN. SIGNATURE: Rosmery Mclaughlin RN PATIENT NAME: Vida Nina DATE: September 08, 2021 TIME: 10:22 AM PAGER/CONTACT #: [phone] [facility] 09-08-2021 [facility] HNO ID: [id number] Author: Sam Naidu DO Service: Gynecology Oncology [...] the patient's care with the resident. Signature: Jennifre Cuevas MD Service Date: 09/09/2021 Service Time: [...] Time Provider Department Center 09/22/2021 2:30 PM [id number] CUEVAS PO DISCHARGE MEDICATIONS Current Discharge Medication [...] September 08, 2021 TIME: 7:27 AM PAGER: [phone] [facility] ANES PRE-OPon 09-07-2021 ANES PRE-OP HNO ID: [id number] Author: Darrion Payne MD Service: Anesthesiology Author [...] September 07, 2021 TIME: 8:57 AM CSN: [id number] [facility] BRIEF OP NOTon 09-07-2021 BRIEF OP NOT HNO ID: [id number] Author: Sam Naidu DO Service: Gynecology Oncology Author Type: Resident Type: Brief Op Note Filed: 09/07/2021 1:06 PM Note Text: BRIEF OPERATIVE / PROCEDURE NOTE LOG ID: [id number] SURGERY/PROCEDURE DATE: 09/07/2021 INCISION/PROCEDURE START TIME: 9:14 AM INCISION CLOSE/PROCEDURE END TIME: 12:36 PM SURGEON(S)/PROCEDURALIST( S) AND FILLING MACHINE TENDER(S): Surgeon(s) and Role: * Jennifer Cuevas MD [...] PM [facility] Bacteria Ur Culton 2 Bacteria identified [...] on above: Performed By: #### 6 30-4 ####[facility]IA [id number] [address] STATES OF [facility] Basic metabolic 2000 panelon 09-07-2021 Anion gap [Moles/Vol] 13 mmol/L Normal 9-18 [facility] Comment on above: Order Comment: Bobbi alford Type: BLOOD SPECIMEN Ordering Facility: [facility] Address: [address] [place] [address] Performed By: #### 2 4321-2 #### [facility] CLIA [id number] [address] STATES OF [facility] Calcium [Mass/Vol] 9.2 mg/dL Normal 8.5-10.2 [facility] Comment on above: Order Comment: Bobbi alford Type: BLOOD SPECIMEN Ordering Facility: [facility] Address: [address] [place] [address] Performed By: #### 2 4321-2 #### [facility] CLIA [id number] [address] [place] Chloride [Moles/Vol] 97 mmol/L Normal 97-105 [facility] Comment on above: Order Comment: Speci men Type: BLOOD SPECIMEN Ordering Facility: [facility] Address: [address] [place] [address] Performed By: #### 2 4321-2 #### [facility] CLIA [id number] [address] [place] CO2 [Moles/Vol] 22 mmol/L Normal 22-30 [facility] Comment on above: Order Comment: Speci men Type: BLOOD SPECIMEN Ordering Facility: [facility] Address: [address] [place] [address] Performed By: #### 2 4321-2 #### [facility] CLIA [id number] [address] OF [facility] Creatinine [Mass/Vol] 0.70 mg/dL Normal 0.58-0.96 [facility] Comment on above: Order Comment: Speci men Type: BLOOD SPECIMEN Ordering Facility: [facility] Address: [address] [place] [address] Performed By: #### 2 4321-2 #### [facility] CLIA [id number] [address] OF [place] ESTIMATED GLOMERULAR FILTRATION RATE 94 mL/min/1.73m??? Normal >=60 [facility] Comment on above: Order Comment: Speci men Type: BLOOD SPECIMEN Ordering Facility: [facility] Address: [address] [place] [address] Result Comment: Laura mated Glomerular Filtration Rate [...] 2 4321-2 #### [facility] CLIA [id number] [address] [place] [address] [place] Glucose [Mass/Vol] 303 mg/dL High 74-99 [facility] Comment on above: Order Comment: Bobbi alford Type: BLOOD SPECIMEN Ordering Facility: [facility] Address: [address] [place] [address] Result Comment: The [place] Diabetes Association (ADA) provides guidance for cutoff [...] Standards of Medical Care in Diabetes 2016, [place] Diabetes Association. Diabetes Care. 2016.39(Suppl 1). Performed By: #### 2 4321-2 #### [facility] CLIA [id number] [address] [place] [address] [place] Potassium [Moles/Vol] 4.9 mmol/L Normal 3.7-5.1 [facility] Comment on above: Order Comment: Bobbi alford Type: BLOOD SPECIMEN Ordering Facility: [facility] Address: [address] [place] [address] Performed By: #### 2 4321-2 #### [facility] CLIA [id number] [address] [place] [address] [place] Sodium [Moles/Vol] 132 mmol/L Low 136-144 [facility] Comment on above: Order Comment: Bobbi alford Type: BLOOD SPECIMEN Ordering Facility: [facility] Address: [address] [place] [address] Performed By: #### 2 4321-2 #### [facility] CLIA [id number] [address] STATES OF [facility] Urea nitrogen [Mass/Vol] 13 mg/dL Normal 7-21 [facility] Comment on above: Order Comment: Speci men Type: BLOOD SPECIMEN Ordering Facility: [facility] Address: [address] [place] [address] Performed By: #### 2 4321-2 #### [facility] CLIA [id number] [address] [place] CBC panel Auto (Bld)on 09-07 Erythrocyte distribution width (RBC) [Ratio] 14.2 % Normal 11.5-15.0 [facility] Comment on above: Order Comment: Speci men Type: BLOOD SPECIMEN Ordering Facility: [facility] Address: [address] [place] [address] Performed By: #### 5 8410-2 #### [facility] CLIA [id number] [address] Hematocrit (Bld) [Volume fraction] 44.0 % Normal 36.0-46.0 [facility] Comment on above: Order Comment: Speci men Type: BLOOD SPECIMEN Ordering Facility: [facility] Address: [address] [place] [address] Performed By: #### 5 8410-2 #### [facility] CLIA [id number] [address] [place] Hemoglobin (Bld) [Mass/Vol] 14.2 g/dL Normal 11.5-15.5 [facility] Comment on above: Order Comment: Speci men Type: BLOOD SPECIMEN Ordering Facility: [facility] Address: [address] [place] [address] Performed By: #### 5 8410-2 #### [facility] CLIA [id number] [address] MCH (RBC) [Entitic mass] 28.9 pg Normal 26.0-34.0 [facility] Comment on above: Order Comment: Speci men Type: BLOOD SPECIMEN Ordering Facility: [facility] Address: [address] [address] Performed By: #### 5 8410-2 #### [facility] CLIA [id number] [address] MCHC (RBC) [Mass/Vol] 32.3 g/dL Normal 30.5-36.0 [facility] Comment on above: Order Comment: Speci men Type: BLOOD SPECIMEN Ordering Facility: [facility] Address: [address] [place] [address] Performed By: #### 5 8410-2 #### [facility] CLIA [id number] [address] MCV (RBC) [Entitic vol] 89.6 fL Normal 80.0-100.0 [facility] Comment on above: Order Comment: Speci men Type: BLOOD SPECIMEN Ordering Facility: [facility] Address: [address] [place] [address] Performed By: #### 5 8410-2 #### [facility] CLIA [id number] [address] Nucleated RBC (Bld) [#/Vol] 10*3/uL Normal <0.01 [facility] Comment on above: Order Comment: Speci men Type: BLOOD SPECIMEN Ordering Facility: [facility] Address: [address] [place] [address] Performed By: #### 5 8410-2 #### [facility] CLIA [id number] [address] Platelet mean volume (Bld) [Entitic vol] 10.8 fL Normal 9.0-12.7 [facility] Comment on above: Order Comment: Speci men Type: BLOOD SPECIMEN Ordering Facility: [facility] Address: [address] [place] [address] Performed By: #### 5 8410-2 #### [facility] CLIA [id number] [address] [place] [address] [place] Platelets (Bld) [#/Vol] 153 10*3/uL Normal 150-400 [facility] Comment on above: Order Comment: Bobbi alford Type: BLOOD SPECIMEN Ordering Facility: [facility] Address: [address] [place] [address] Performed By: #### 5 8410-2 #### [facility] CLIA [id number] [address] [place] RBC (Bld) [#/Vol] 4.91 10*6/uL Normal 3.90-5.20 [facility] Comment on above: Order Comment: Bobbi alford Type: BLOOD SPECIMEN Ordering Facility: [facility] Address: [address] [place] [address] Performed By: #### 5 8410-2 #### [facility] CLIA [id number] [address] WBC (Bld) [#/Vol] 8.23 10*3/uL Normal 3.70-11.00 [facility] Comment on above: Order Comment: Bobbi alford Type: BLOOD SPECIMEN Ordering Facility: [facility] Address: [address] [place] [address] Performed By: #### 5 8410-2 #### [facility] CLIA [id number] [address] OF [facility] CONSULT PROGon 09-07-2021 CONSULT PROG HNO ID: [id number] Author: Niki Crabtree RPh Service: Pharmacy Author [...] RPh DATE/TIME: 09/07/2021 4:32 PM [facility] NURSING PROGon 09-07-2021 NURSING PROG HNO ID: [id number] Author: Lydia Oliver RN Service: Nursing Author Type: Registered Nurse Type: Nursing Progress Note Filed: 09/07/2021 3:19 PM Note Text: Spoke with Bernadine at [facility] to let her know patient was spending the night, as she said there is no nursing staff after 2300 [facility] NURSING PROG HNO ID: [id number] Author: Lydia Oliver RN Service: Nursing Author [...] an Emergency Use Authorization (EUA). [facility] Comment on above: Performed By: #### 9 4500-6 ####[facility]ORATORYCLIA [id number] [address] STATES OF [facility] SURGICAL PATHOLOGYon 022 CASE REPORT [facility] Comment on above: Order Comment: Speci men Type: TISSUE SPECIMEN Ordering Facility: [facility] Address: [address] [place] [address] Result Comment: Surg ica Pathology Report Case: [id number] Authorizing Provider: Jennifer Cuevas MD Collected: 09/07/2021 11:04 AM Ordering Location: [facility] Received: 09/07/2021 11:12 AM Pathologist: Oseas May MD Intraop: Derick Alvarez MD Specimen: UTERUS, CERVIX, BILATERAL FALLOPIAN TUBES AND BILATERAL OVARIES Performed By: #### S #### [facility] CLIA [id number] [address] DIAGNOSIS COMMENT Normal [facility] Comment on above: Order Comment: Speci men Type: TISSUE SPECIMEN Ordering Facility: [facility] Address: [address] [place] [address] Result Comment: Immu nohistochemical staining performed on [...] A11 and A16 were reviewed at the [facility] gynecologic pathology consensus conference via telepathology on 09/09/[address] Lupe Younger and Andra Franco agree with the diagnosis of acute salpingitis. Laboratory Developed Test (LDT) Disclaimer: Performance characteristics of immunohistochemical, immunofluorescent and chromogenic in-situ hybridization tests have been determined by the performing laboratory within [facility]???s [facility] Pathology and Laboratory Medicine [place] ([facility], [facility], [facility] or [facility]) in a manner consistent with CLIA [...] Performed By: #### S #### [facility] CLIA [id number] [address] FINAL DIAGNOSIS Normal [facility] Comment on above: Order Comment: Speci men Type: TISSUE SPECIMEN Ordering Facility: [facility] Address: [address] [place] [address] Result Comment: A. U terus, cervix, bilateral [...] Performed By: #### S #### [facility] CLIA [id number] [address] [place] [address] FINAL PERFORMING LAB Normal [facility] Comment on above: Order Comment: Speci men Type: TISSUE SPECIMEN Ordering Facility: [facility] Address: [address] [place] [address] Result Comment: Diag nostic interpretation performed at [facility], [address] [place] [address] CLIA# [id number] Slip Cover Sewer: Alok Jonas M.D. Performed By: #### S #### [facility] CLIA [id number] [address] [place] [address] GROSS DESCRIPTION Normal [facility] Comment on above: Order Comment: Speci men Type: TISSUE SPECIMEN Ordering Facility: [facility] Address: [address] [address] Result Comment: A. U TERUS, CERVIX, BILATERAL [...] fibrous ovarian parenchyma with no lesions identified. Research Chemist sections are submitted as follows: A1-anterior cervix [...] A 17-right ovary Gross examination performed at [facility], [address] [place] [address] CLIA#[id number] OLS September 08, 2021 10:33 AM Performed By: #### S #### [facility] CLIA [id number] [address] [place] INTRAOPERATIVE DIAGNOSIS Normal [facility] Comment on above: Order Comment: Speci men Type: TISSUE SPECIMEN Ordering Facility: [facility] Address: [address] [place] [address] Result Comment: A. U TERUS, CERVIX, BILATERAL FALLOPIAN TUBES AND BILATERAL OVARIES. Gross diagnosis: Uterus, cervix, bilateral fallopian tubes, bilateral ovaries- Endometrial tumor grossly invading greater than 50% into the uterine wall (AC) Performed By: #### S #### [facility] CLIA [id number] [address] [place] SYNOPTIC REPORT ENDOMETRIUM Normal [facility] Comment on above: Order Comment: Speci men Type: TISSUE SPECIMEN Ordering Facility: [facility] Address: [address] [place] [address] Result Comment: ENDO METRIUM, HYSTERECTOMY - All [...] Stage: IB Performed By: #### S #### [facility] CLIA [id number] [address] OF [facility] CBC panel Auto (Bld)on 09-01 Erythrocyte distribution width (RBC) [Ratio] 14.5 % Normal 11.5-15.0 [facility] Comment on above: Order Comment: Bobbi alford Type: BLOOD SPECIMEN Ordering Facility: [facility] Address: [address] [address] Performed By: #### 5 8410-2 #### [facility] CLIA [id number] [address] STATES OF [facility] Hematocrit (Bld) [Volume fraction] 41.0 % Normal 36.0-46.0 [facility] Comment on above: Order Comment: Laurai men Type: BLOOD SPECIMEN Ordering Facility: [facility] Address: [address] [address] Performed By: #### 5 8410-2 #### [facility] CLIA [id number] [address] OF [place] Hemoglobin (Bld) [Mass/Vol] 13.3 g/dL Normal 11.5-15.5 [facility] Comment on above: Order Comment: Laurai men Type: BLOOD SPECIMEN Ordering Facility: [facility] Address: [address] [address] Performed By: #### 5 8410-2 #### [facility] CLIA [id number] [address] MCH (RBC) [Entitic mass] 28.8 pg Normal 26.0-34.0 [facility] Comment on above: Order Comment: Speci men Type: BLOOD SPECIMEN Ordering Facility: [facility] Address: [address] [place] [address] Performed By: #### 5 8410-2 #### [facility] CLIA [id number] [address] MCHC (RBC) [Mass/Vol] 32.4 g/dL Normal 30.5-36.0 [facility] Comment on above: Order Comment: Speci men Type: BLOOD SPECIMEN Ordering Facility: [facility] Address: [address] [place] [address] Performed By: #### 5 8410-2 #### [facility] CLIA [id number] [address] MCV (RBC) [Entitic vol] 88.7 fL Normal 80.0-100.0 [facility] Comment on above: Order Comment: Speci men Type: BLOOD SPECIMEN Ordering Facility: [facility] Address: [address] [place] [address] Performed By: #### 5 8410-2 #### [facility] CLIA [id number] [address] Nucleated RBC (Bld) [#/Vol] 10*3/uL Normal <0.01 [facility] Comment on above: Order Comment: Speci men Type: BLOOD SPECIMEN Ordering Facility: [facility] Address: [address] [place] [address] Performed By: #### 5 8410-2 #### [facility] CLIA [id number] [address] OF [facility] Platelet mean volume (Bld) [Entitic vol] 10.5 fL Normal 9.0-12.7 [facility] Comment on above: Order Comment: Speci men Type: BLOOD SPECIMEN Ordering Facility: [facility] Address: [address] [address] Performed By: #### 5 8410-2 #### [facility] CLIA [id number] [address] Platelets (Bld) [#/Vol] 167 10*3/uL Normal 150-400 [facility] Comment on above: Order Comment: Speci men Type: BLOOD SPECIMEN Ordering Facility: [facility] Address: [address] [place] [address] Performed By: #### 5 8410-2 #### [facility] CLIA [id number] [address] RBC (Bld) [#/Vol] 4.62 10*6/uL Normal 3.90-5.20 [facility] Comment on above: Order Comment: Speci men Type: BLOOD SPECIMEN Ordering Facility: [facility] Address: [address] [place] [address] Performed By: #### 5 8410-2 #### [facility] CLIA [id number] [address] WBC (Bld) [#/Vol] 6.29 10*3/uL Normal 3.70-11.00 [facility] Comment on above: Order Comment: Speci men Type: BLOOD SPECIMEN Ordering Facility: [facility] Address: [address] [place] [address] Performed By: #### 5 8410-2 #### [facility] CLIA [id number] [address] [place] BLOOD TYPEon 022 ABO O Normal [facility] Comment on above: Order Comment: Speci men Type: BLOOD SPECIMEN Ordering Facility: [facility] Address: [address] [place] [address] Performed By: #### C ONABO #### [facility] CLIA [id number] [address] Rh Nom (Bld) Positive Normal [facility] Comment on above: Order Comment: Speci men Type: BLOOD SPECIMEN Ordering Facility: [facility] Address: [address] [place] [address] Performed By: #### C ONABO #### [facility] CLIA [id number] [address] [id number] [facility] HISTORY PHYSICALon 2 HISTORY PHYSICAL HNO ID: [id number] Author: Naila Barrientos APRN.MICHELLE Service: ? Author [...] with Dr. Cuevas. Surgery will be at [facility] Scheduled as an TBA Have you been in contact with someone with known coronavirus/Covid 19? no Have you had surgery or pre testing at [facility] in the past 3 years? no [...] > 1 time per night or hematuria. 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 [...] Speci men Type: BLOOD SPECIMEN Ordering Facility: [facility] Address: [address] [place] [address] Performed By: #### T SCR30 #### [facility] CLIA [id number] [address] HISTORICAL AB SCR STATUS Negative [facility] Comment on above: Order Comment: Speci men Type: BLOOD SPECIMEN Ordering Facility: [facility] Address: [address] [place] [address] Performed By: #### T SCR30 #### [facility] CLIA [id number] [address] [place] [address] Rh Nom (Bld) Positive [facility] Comment on above: Order Comment: Speci men Type: BLOOD SPECIMEN Ordering Facility: [facility] Address: [address] [place] [address] Performed By: #### T SCR30 #### [facility] CLIA [id number] [address] OF [place] CNOVSPon 08-21-2021 CNOVSP Visit (SP) Office (ROGELIO) ----- VIDA NINA ([id number]) 1950 F Date Time Provider Department 08/21/21 1:30 PM JENNIFER CUEVAS During your visit today, we recorded the following information about you: Temperature Pulse Blood pressure Weight 97.8 degrees 113/minute 144/72 130 kg Height 1.651 m Jennifer Cuevas MD 08/26/2021 1:21 PM Signed Gynecologic Oncology [facility] Consult Date of service: 08/21/2021 PCP: [...] many years since she has seen a mechanical design drafter, maybe > 10 years. 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 Minesweeping Officer History ? 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 Age at Menarche: ? Age at First : ? Age at Menopause: ? Minesweeping Officer History Comments: ? Sexual Activity: Not Asked; [...] (more content not included)... Normal [facility] Darren 08-07-2021 MICHELLE Telephone (ÁNGEL Sprague) ----- VIDA NINA ([id number]) 1950 F Date Time Provider Department 08/07/21 [...] ERYTHEMATOSUS [M32.9] 07/15/2005 MYALGIA AND MYOSITIS NOS [[id number]] 07/15/2005 Elevated transaminase level [R74.01] 09/04/2014 Elevated blood sugar [R73.9] 09/04/2014 Mood disorder (HCC) [F39] 09/04/2014 Encounter Status:Closed by JEFFREY FERRIS on 08/07/21 Normal [facility] CNPNon 08-05-2021 CNPN Telephone (OBGYWM) ----- VIDA NINA ([id number]) 1950 F Date Time Provider Department 08/05/21 [...] manager currently. I was given the number [phone] to call, which is [facility] where patient resides. Called this number and left a VM asking them to call back regarding patient results. I had offered the patient a follow up visit this week to review results, but she did prefer a phone call. Pathology shows endometrioid adenocarcinoma. I will place a referral to obstetrics and gynecology professor oncology. Recommend that she see Dr. Jennifer Cuevas in [place] as that would be the closest for her. Krunal Erazo MD 08/05/2021 10:06 AM Signed Discussed results with a nurse Gilberto over the phone and plan of care. She states patient saw an oncologist as well at [facility] and is scheduled for a CTAP. She will have the patient call our office back today for me to discuss results with her as well. Krunal Erazo MD 08/05/2021 10:19 AM Signed Discussed results with the patient and she understands the biopsy shows an endometrial cancer, and that I placed a referral to obstetrics and gynecology professor oncology for a consultation. Please assist in scheduling this patient. Andra Jesus RN 08/05/2021 11:33 AM Signed Scheduled patient with Dr. Cuevas this Tuesday, 08/07 at 1:00 PM. Spoke with the nurse, Gilberto. Patient's CT scan is scheduled for Tuesday. Phone number given to change appointment since transportation needs arranged. Notified Gilberto that he is in [place] on Tuesdays and every other Tuesday. 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] Order(s):CONSULT TO GYNECOLOGIC/ONCOLOGY [[id number]] Order #: [id number]: 1 FUTURE Prescriptions as of 08/05/2021 - [...] ERYTHEMATOSUS [M32.9] 07/15/2005 MYALGIA AND MYOSITIS NOS [[id number]] 07/15/2005 Elevated transaminase level [R74.01] 09/04/2014 Elevated blood sugar [R73.9] 09/04/2014 Mood disorder (HCC) [F39] 09/04/2014 Encounter Status:Closed by PAMELA MATUTE RN on 08/05/21 [facility] No Panel Informationon 07-30 CA 125 Antigen 85.5 U/mL 0.0-38.1 [facility] Work Phone: Comment on above: [employer] El ectrochemiluminescence Immunoassay(ECLIA)Values obtained with different assay methods or kits cannotbe used interchangeably. Results cannot be interpreted asabsolute evidence of the presence or absence of malignantdisease.Performed at: [address] [id number] Director: Suhas Deal PhD, Phone: [phone] CNOVon 07-29-2021 CNOV Office Visit (OBGYWM ) ----- VIDA NINA ([id number]) 1950 F Date Time Provider Department 07/29/21 [...] many years since she has seen a mechanical design drafter, maybe > 10 years. 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 Minesweeping Officer History LMP: Postmenopausal Age at Menarche: Age at First : Age at Menopause: Minesweeping Officer History Comments: Sexual Activity: Not Asked; No [...] non-tender and (more content not included)... Normal [facility] SURGICAL PATHOLOGYon 022 SURGICAL PATHOLOGY ADDENDUM PRESENT Specimen originated from [facility] Specimen #: [id number] Submitting Physician: KRUNAL ERAZO, DO FINAL DIAGNOSIS [...] in-situ hybridization tests have been determined by [facility]'s [facility] Pathology and Laboratory Medicine [place] [facility]) in a manner consistent with CLIA requirements. One or more of these tests have not been cleared or approved by the FDA. [facility] is regulated under CLIA as qualified to [...] completed on all uterine/endometrial carcinomas at the [facility]. IHC stains for MMR proteins [...] more information or questions, please call the [facility] at . Andra Webb (more content not included)... Normal [facility] CNPNon 07-27-2021 CNPN Telephone (OBGYWM) ----- VIDA NINA ([id number]) 1950 F CPA Date Time Provider Department 07/27/21 KRUNAL ERAZO OBTRUDY During your visit today, we recorded the following information about you: Andra Jesus RN 07/27/2021 8:14 AM Signed KJ states that patient was seen at [facility] ER yesterday for vaginal bleeding and possible pelvic mass. Called [facility] ER and requested records and imaging [...] patient is minimally ambulatory and coming from [facility]. 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 Can offer her the 2.20 [...] ERYTHEMATOSUS [M32.9] 07/15/2005 MYALGIA AND MYOSITIS NOS [[id number]] 07/15/2005 Elevated transaminase level [R74.01] 09/04/2014 Elevated blood sugar [R73.9] 09/04/2014 Mood disorder (HCC) [F39] 09/04/2014 Encounter Status:Closed by ELISABETH GREEN LPN on 07/27/21 Normal [facility] Absolute lymphocyte counton 07-26-2021 Lymphocytes Auto (Unsp spec) [#/Vol] 1.24 10*3/uL 0.83-4.51 [facility] Work Phone: Basophil percentageon 2021 Basophils/100 WBC (Bld) 0.6 % 0-1 [facility] Work Phone: Chloride [Moles/Vol] 105 mmol/L 98-107 [facility] Work Phone: Eosinophils/100 WBC (Bld) 3.9 % 0-5 [facility] Work Phone: Glucose [Mass/Vol] 185 mg/dL 74-106 [facility] Work Phone: Comment on above: Fasting Glucose resu lt greater than or equal to 126 mg/dL suggests DIABETES MELLITUS per A.D.A. criteria. Neutrophils (Bld) [#/Vol] 3.2 10*3/uL 2.0-7.7 [facility] Work Phone: Neutrophils/100 WBC (Bld) 62.1 % 47-70 [facility] Work Phone: Potassium [Moles/Vol] 4.4 mmol/L 3.5-5.1 [facility] Work Phone: Sodium [Moles/Vol] 135 mmol/L 136-145 [facility] Work Phone: WBC (Bld) [#/Vol] 5.1 10*3/uL 4.4-11.0 [facility] Work Phone: Blood erythrocytes count (nu mber/volume)on 07-26-2021 RBC (Bld) [#/Vol] 4.66 10*6/uL 4.2-5.4 [facility] Work Phone: Blood hemoglobin measurement (mass/volume)on 07-26-2021 Hemoglobin (Bld) [Mass/Vol] 13.8 g/dL 12.0-15.0 [facility] Work Phone: Blood lymphocytes/100 leukoc yteson 07-26-2021 Lymphocytes/100 WBC (Bld) 24.5 % 19-41 [facility] Work Phone: Blood monocytes/100 leukocyt eson 07-26-2021 Monocytes/100 WBC (Bld) 8.5 % 0-10 [facility] Work Phone: Blood platelet mean volumeon 07-26-2021 Platelet mean volume (Bld) [Entitic vol] 10.1 fL 6.2-12.0 [facility] Work Phone: Determination of erythrocyte mean corpuscular volume (MCV)on 07-26-2021 MCV (RBC) [Entitic vol] 88.2 fL 81-99 [facility] Work Phone: Hematocrit Auto (Bld) [Volum e fraction]on 07-26-2021 Hematocrit (Bld) [Volume fraction] 41.1 % 37-47 [facility] Work Phone: Laboratory - Chemistry and C hemistry - challengeon 07-26-2021 CO2 [Moles/Vol] 24.0 mmol/L 21.0-32.0 [facility] Work Phone: Urea nitrogen/Creatinine [Mass ratio] 17.3 mg/mg 10-20 [facility] Work Phone: Laboratory - Hematology and Cell countson 07-26-2021 Erythrocyte distribution width (RBC) [Entitic vol] 46.8 fL 35.1-43.9 [facility] Work Phone: Erythrocyte distribution width (RBC) [Ratio] 14.6 % 11.6-14.6 [facility] Work Phone: Immature granulocytes/100 WBC (Bld) 0.400 % 0.0-0.9 [facility] Work Phone: Comment on above: IG% - Immature Granu locytes (promyelocytes, myelocytes and metamyelocytes) > 1% indicates that a LEFT SHIFT is Present. MCH (RBC) [Entitic mass] 29.6 pg 27.0-32.0 [facility] Work Phone: Nucleated RBC/100 WBC (Bld) [Ratio] 0 % 0-5 [facility] Work Phone: MCHC Auto (RBC) [Mass/Vol]on 07-26-2021 MCHC (RBC) [Mass/Vol] 33.6 g/dL 32-36 [facility] Work Phone: No Panel Informationon 07-26 Estimated Creatinine Clearance Calc 55.69 ml/min [facility] Work Phone: Estimated GFR (MDRD) Amer 84 mL/min >60 [facility] Work Phone: Comment on above: GFR Calc Estimated GFR (MDRD) Non-Af Amer 69 mL/min >60 [facility] Work Phone: Comment on above: Non- GFR Calc Platelets bldon 07-26-2021 Platelets (Bld) [#/Vol] 151 10*3/uL 150-450 [facility] Work Phone: Serum or plasma calcium kim urement (mass/volume)on 07-26-2021 Calcium [Mass/Vol] 9.2 mg/dL 8.5-10.1 [facility] Work Phone: Serum or plasma creatinine m easurement (mass/volume)on 07-26-2021 Creatinine [Mass/Vol] 0.87 mg/dL 0.55-1.02 [facility] Work Phone: Comment on above: The validity of the calculated GFR & GFRAA in patients over 70 years has not been determined. Clinical correlation is essential. Serum or plasma urea nitroge n measurement (mass/volume)on 07-26-2021 Urea nitrogen [Mass/Vol] 15 mg/dL 7-18 [facility] Work Phone: Thin prep Papanicolaou smear with manual screeningon 07-26-2021 Thin prep Papanicolaou smear with manual screening 6 5-15 [facility] Work Phone: Absolute lymphocyte counton 07-14-2021 Lymphocytes Auto (Unsp spec) [#/Vol] 1.32 10*3/uL 0.83-4.51 [facility] Work Phone: Basophil percentageon 2021 Basophils/100 WBC (Bld) 0.6 % 0-1 [facility] Work Phone: Bilirubin [Mass/Vol] 0.40 mg/dL 0.20-1.00 [facility] Work Phone: Comment on above: For patients on eltr ombopag therapy, use of Dimension [place] TBIL is not recommended. Chloride [Moles/Vol] 104 mmol/L 98-107 [facility] Work Phone: Eosinophils/100 WBC (Bld) 3.1 % 0-5 [facility] Work Phone: Glucose [Mass/Vol] 201 mg/dL 74-106 [facility] Work Phone: Comment on above: Glucose result great er than or equal to 200 mg/dLsuggests DIABETES MELLITUS per A.D.A. criteria. Neutrophils (Bld) [#/Vol] 3.0 10*3/uL 2.0-7.7 [facility] Work Phone: Neutrophils/100 WBC (Bld) 59.5 % 47-70 [facility] Work Phone: Potassium [Moles/Vol] 4.2 mmol/L 3.5-5.1 [facility] Work Phone: Protein [Mass/Vol] 7.6 g/dL 6.4-8.2 [facility] Work Phone: Sodium [Moles/Vol] 136 mmol/L 136-145 [facility] Work Phone: WBC (Bld) [#/Vol] 5.1 10*3/uL 4.4-11.0 [facility] Work Phone: Blood erythrocytes count (nu mber/volume)on 07-14-2021 RBC (Bld) [#/Vol] 4.23 10*6/uL 4.2-5.4 [facility] Work Phone: Blood hemoglobin measurement (mass/volume)on 07-14-2021 Hemoglobin (Bld) [Mass/Vol] 12.9 g/dL 12.0-15.0 [facility] Work Phone: Blood lymphocytes/100 leukoc yteson 07-14-2021 Lymphocytes/100 WBC (Bld) 26.0 % 19-41 [facility] Work Phone: Blood monocytes/100 leukocyt eson 07-14-2021 Monocytes/100 WBC (Bld) 10.4 % 0-10 [facility] Work Phone: Blood platelet mean volumeon 07-14-2021 Platelet mean volume (Bld) [Entitic vol] 10.9 fL 6.2-12.0 [facility] Work Phone: Determination of erythrocyte mean corpuscular volume (MCV)on 07-14-2021 MCV (RBC) [Entitic vol] 88.9 fL 81-99 [facility] Work Phone: Hematocrit Auto (Bld) [Volum e fraction]on 07-14-2021 Hematocrit (Bld) [Volume fraction] 37.6 % 37-47 [facility] Work Phone: Laboratory - Chemistry and C hemistry - challengeon 07-14-2021 ALP [Catalytic activity/Vol] 144 U/L 45-117 [facility] Work Phone: ALT [Catalytic activity/Vol] 28 U/L 13-56 [facility] Work Phone: CO2 [Moles/Vol] 24.0 mmol/L 21.0-32.0 [facility] Work Phone: Globulin (S) [Mass/Vol] 4.7 g/dL 2.2-4.2 [facility] Work Phone: Urea nitrogen/Creatinine [Mass ratio] 18.0 mg/mg 10-20 [facility] Work Phone: Laboratory - Hematology and Cell countson 07-14-2021 Erythrocyte distribution width (RBC) [Entitic vol] 46.7 fL 35.1-43.9 [facility] Work Phone: Erythrocyte distribution width (RBC) [Ratio] 14.5 % 11.6-14.6 [facility] Work Phone: Immature granulocytes/100 WBC (Bld) 0.400 % 0.0-0.9 [facility] Work Phone: Comment on above: IG% - Immature Granu locytes (promyelocytes, myelocytes and metamyelocytes) > 1% indicates that a LEFT SHIFT is Present. MCH (RBC) [Entitic mass] 30.5 pg 27.0-32.0 [facility] Work Phone: Nucleated RBC/100 WBC (Bld) [Ratio] 0 % 0-5 [facility] Work Phone: MCHC Auto (RBC) [Mass/Vol]on 07-14-2021 MCHC (RBC) [Mass/Vol] 34.3 g/dL 32-36 [facility] Work Phone: No Panel Informationon 07-14 Estimated GFR (MDRD) Amer 95 mL/min >60 [facility] Work Phone: Comment on above: GFR Calc Estimated GFR (MDRD) Non-Af Amer 78 mL/min >60 [facility] Work Phone: Comment on above: Non- GFR Calc Vitamin D 25-Hydroxy 79.0 ng/mL [facility] Work Phone: Comment on above: Vitamin D 25(OH) Sta tus Range Deficiency <20 ng/mL (50nmol/L) Insufficiency 20 - 30 ng/mL (50 - 75 nmol/L) Sufficiency 30 - 100 ng/mL (75 - 250 nmol/L) Toxicity >100 ng/mL (>250 nmol/L) Platelets bldon 07-14-2021 Platelets (Bld) [#/Vol] 170 10*3/uL 150-450 [facility] Work Phone: Serum or plasma albumin kim urement (mass/volume)on 07-14-2021 Albumin [Mass/Vol] 2.9 g/dL 3.2-5.0 [facility] Work Phone: Serum or plasma albumin/glob ulin mass ratioon 07-14-2021 Albumin/Globulin [Mass ratio] 0.6 {ratio} 0.9-2.4 [facility] Work Phone: Serum or plasma calcium kim urement (mass/volume)on 07-14-2021 Calcium [Mass/Vol] 8.7 mg/dL 8.5-10.1 [facility] Work Phone: Serum or plasma creatinine m easurement (mass/volume)on 07-14-2021 Creatinine [Mass/Vol] 0.78 mg/dL 0.55-1.02 [facility] Work Phone: Comment on above: The validity of the calculated GFR & GFRAA in patients over 70 years has not been determined. Clinical correlation is essential. Serum or plasma urea nitroge n measurement (mass/volume)on 07-14-2021 Urea nitrogen [Mass/Vol] 14 mg/dL 7-18 [facility] Work Phone: Thin prep Papanicolaou smear with manual screeningon 07-14-2021 Thin prep Papanicolaou smear with manual screening 26 U/L 15-37 [facility] Work Phone: Thin prep Papanicolaou smear with manual screening 8 5-15 [facility] Work Phone: Absolute lymphocyte counton 07-08-2021 Lymphocytes Auto (Unsp spec) [#/Vol] 1.26 10*3/uL 0.83-4.51 [facility] Work Phone: Basophil percentageon 2021 Basophils/100 WBC (Bld) 0.6 % 0-1 [facility] Work Phone: Bilirubin [Mass/Vol] 0.40 mg/dL 0.20-1.00 [facility] Work Phone: Comment on above: For patients on eltr ombopag therapy, use of Dim[employer] [place] TBIL is not recommended. Chloride [Moles/Vol] 104 mmol/L 98-107 [facility] Work Phone: Eosinophils/100 WBC (Bld) 4.5 % 0-5 [facility] Work Phone: Glucose [Mass/Vol] 181 mg/dL 74-106 [facility] Work Phone: Comment on above: Fasting Glucose resu lt greater than or equal to 126 mg/dL suggests DIABETES MELLITUS per A.D.A. criteria. Neutrophils (Bld) [#/Vol] 2.8 10*3/uL 2.0-7.7 [facility] Work Phone: Neutrophils/100 WBC (Bld) 58.0 % 47-70 [facility] Work Phone: Potassium [Moles/Vol] 4.5 mmol/L 3.5-5.1 [facility] Work Phone: Protein [Mass/Vol] 7.5 g/dL 6.4-8.2 [facility] Work Phone: Sodium [Moles/Vol] 136 mmol/L 136-145 [facility] Work Phone: WBC (Bld) [#/Vol] 4.9 10*3/uL 4.4-11.0 [facility] Work Phone: Blood erythrocytes count (nu mber/volume)on 07-08-2021 RBC (Bld) [#/Vol] 4.16 10*6/uL 4.2-5.[address] [facility] Work Phone: Blood hemoglobin measurement (mass/volume)on 07-08-2021 Hemoglobin (Bld) [Mass/Vol] 12.2 g/dL 12.0-15.0 [facility] Work Phone: Blood lymphocytes/100 leukoc yteson 07-08-2021 Lymphocytes/100 WBC (Bld) 25.7 % 19-41 [facility] Work Phone: Blood monocytes/100 leukocyt eson 07-08-2021 Monocytes/100 WBC (Bld) 10.8 % 0-10 [facility] Work Phone: Blood platelet mean volumeon 07-08-2021 Platelet mean volume (Bld) [Entitic vol] 11.2 fL 6.2-12.0 [facility] Work Phone: Determination of erythrocyte mean corpuscular volume (MCV)on 07-08-2021 MCV (RBC) [Entitic vol] 89.2 fL 81-99 [facility] Work Phone: Hematocrit Auto (Bld) [Volum e fraction]on 07-08-2021 Hematocrit (Bld) [Volume fraction] 37.1 % 37-47 [facility] Work Phone: Laboratory - Chemistry and C hemistry - challengeon 07-08-2021 ALP [Catalytic activity/Vol] 131 U/L 45-117 [facility] Work Phone: ALT [Catalytic activity/Vol] 32 U/L 13-56 [facility] Work Phone: CO2 [Moles/Vol] 23.0 mmol/L 21.0-32.0 [facility] Work Phone: Globulin (S) [Mass/Vol] 4.6 g/dL 2.2-4.2 [facility] Work Phone: Urea nitrogen/Creatinine [Mass ratio] 18.5 mg/mg 10-20 [facility] Work Phone: Laboratory - Hematology and Cell countson 07-08-2021 Erythrocyte distribution width (RBC) [Entitic vol] 47.6 fL 35.1-43.9 [facility] Work Phone: Erythrocyte distribution width (RBC) [Ratio] 14.6 % 11.6-14.6 [facility] Work Phone: Immature granulocytes/100 WBC (Bld) 0.400 % 0.0-0.9 [facility] Work Phone: Comment on above: IG% - Immature Granu locytes (promyelocytes, myelocytes and metamyelocytes) > 1% indicates that a LEFT SHIFT is Present. MCH (RBC) [Entitic mass] 29.3 pg 27.0-32.0 [facility] Work Phone: Nucleated RBC/100 WBC (Bld) [Ratio] 0 % 0-5 [facility] Work Phone: MCHC Auto (RBC) [Mass/Vol]on 07-08-2021 MCHC (RBC) [Mass/Vol] 32.9 g/dL 32-36 [facility] Work Phone: No Panel Informationon 07-08 Estimated GFR (MDRD) Amer 84 mL/min >60 [facility] Work Phone: Comment on above: GFR Calc Estimated GFR (MDRD) Non-Af Amer 69 mL/min >60 [facility] Work Phone: Comment on above: Non- GFR Calc Vitamin D 25-Hydroxy 88.3 ng/mL [facility] Work Phone: Comment on above: Vitamin D 25(OH) Sta tus Range Deficiency <20 ng/mL (50nmol/L) Insufficiency 20 - 30 ng/mL (50 - 75 nmol/L) Sufficiency 30 - 100 ng/mL (75 - 250 nmol/L) Toxicity >100 ng/mL (>250 nmol/L) Platelets bldon 07-08-2021 Platelets (Bld) [#/Vol] 159 10*3/uL 150-450 [facility] Work Phone: Serum or plasma albumin kim urement (mass/volume)on 07-08-2021 Albumin [Mass/Vol] 2.9 g/dL 3.2-5.0 [facility] Work Phone: Serum or plasma albumin/glob ulin mass ratioon 07-08-2021 Albumin/Globulin [Mass ratio] 0.6 {ratio} 0.9-2.4 [facility] Work Phone: Serum or plasma calcium kim urement (mass/volume)on 07-08-2021 Calcium [Mass/Vol] 9.0 mg/dL 8.5-10.1 [facility] Work Phone: Serum or plasma creatinine m easurement (mass/volume)on 07-08-2021 Creatinine [Mass/Vol] 0.87 mg/dL 0.55-1.02 [facility] Work Phone: Comment on above: The validity of the calculated GFR & GFRAA in patients over 70 years has not been determined. Clinical correlation is essential. Serum or plasma urea nitroge n measurement (mass/volume)on 07-08-2021 Urea nitrogen [Mass/Vol] 16 mg/dL 7-18 [facility] Work Phone: Thin prep Papanicolaou smear with manual screeningon 07-08-2021 Thin prep Papanicolaou smear with manual screening 32 U/L 15-37 [facility] Work Phone: Thin prep Papanicolaou smear with manual screening 9 5-15 [facility] Work Phone: No Panel Informationon 06-12 Vitamin D 25-Hydroxy 101.7 ng/mL [facility] Work Phone: Comment on above: [...] Adolescent depression screening assessment Invalid Interpretation Code [facility] Work Phone: Documentation of current medications (procedure) Done Invalid Interpretation Code [facility] Work Phone: Fall risk assessment Fall risk assessment Invali d Interpretation Code [facility] Work Phone: Tobacco smoking status NHIS Never Invalid Interpretation Code [facility] Work Phone: Tobacco use CPHS Former smoker Invalid Interpretation Code [facility] Work Phone: Office Visit: [facility] 11-05-2015 Breast Mammogram screening Normal Bilateral Invalid Interpretation Code [facility] Work Phone: Colonoscopy (procedure) Colonoscopy (procedure) Invalid Interpretation Code [facility] Work Phone: Culture, urine Bacteria identified Cx Nom (U) Negative [facility] Work Phone: Bacteria identified Cx Nom (U) Escherichia coli [facility] Work Phone: Laboratory - Microbiology an d Antimicrobial susceptibility Bacteria identified Cx Nom (Bld) Negative [facility] Work Phone: No Panel Information SARS-CoV-2 & FLU Antigen (Rapid) [facility] Work Phone: Vital Signs Date Time Vital Sign Value Performing Clinician Facility 10-11-2024 07:00-0400 SaO2% (BldA) [Mass fraction] 95 % Dr. Shayna Malhotra MD Work Phone: [facility] 10-11-2024 06:49-0400 Body temperature 97.6 [degF] Dr. Shayna Malhotra MD Work Phone: [facility] 10-11-2024 06:49-0400 Diastolic blood pressure 76 mm[Hg] Dr. Shayna Malhotra MD Work Phone: [facility] 10-11-2024 06:49-0400 Heart rate 106 /min Dr. Shayna Malhotra MD Work Phone: [facility] 10-11-2024 06:49-0400 Respiratory rate 20 /min Dr. Shayna Malhotra MD Work Phone: [facility] 10-11-2024 06:49-0400 Systolic blood pressure 153 mm[Hg] Dr. Shayna Malhotra MD Work Phone: [facility] 10-11-2024 06:00-0400 Body mass index (BMI) [Ratio] 49.6 kg/m2 Dr. Shayna Malhotra MD Work Phone: [facility] 10-11-2024 06:00-0400 Body weight 135.[address] Shayna Malhotra MD Work Phone: [facility] 10-10-2024 14:58-0400 Body height 165.[address] Shayna Malhotra MD Work Phone: [facility] 10-09-2024 20:55-0400 Diastolic blood pressure 57 mm[Hg] Dr. Shayna Malhotra MD Work Phone: [facility] 10-09-2024 20:55-0400 Heart rate 102 /min Dr. Shayna Malhotra MD Work Phone: [facility] 10-09-2024 20:55-0400 Respiratory rate 20 /min Dr. Shayna Malhotra MD Work Phone: [facility] 10-09-2024 20:55-0400 SaO2% (BldA) [Mass fraction] 98 % Dr. Shayna Malhotra MD Work Phone: [facility] 10-09-2024 20:55-0400 Systolic blood pressure 121 mm[Hg] Dr. Shayna Malhotra MD Work Phone: [facility] 10-09-2024 16:55-0400 Body height 165.[address] Shayna Malhotra MD Work Phone: [facility] 10-09-2024 16:55-0400 Body mass index (BMI) [Ratio] 49.1 kg/m2 Dr. Shayna Malhotra MD Work Phone: [facility] 10-09-2024 16:55-0400 Body temperature 97.8 [degF] Dr. Shayna Malhotra MD Work Phone: [facility] 10-09-2024 16:55-0400 Body weight [address] Shayna Malhotra MD Work Phone: [facility] 07-04-2024 13:06-0500 Body mass index (BMI) [Ratio] 49.9 kg/m2 Dr. Shayna Malhotra MD Work Phone: [facility] 07-04-2024 13:06-0500 Body temperature 97.8 [degF] Dr. Shayna Malhotra MD Work Phone: [facility] 07-04-2024 13:06-0500 Body weight 136.[address] Shayna Malhotra MD Work Phone: [facility] 07-04-2024 13:06-0500 Diastolic blood pressure 80 mm[Hg] Dr. Shayna Malhotra MD Work Phone: [facility] 07-04-2024 13:06-0500 Heart rate 107 /min Dr. Shayna Malhotra MD Work Phone: [facility] 07-04-2024 13:06-0500 Respiratory rate 16 /min Dr. Shayna Malhotra MD Work Phone: [facility] 07-04-2024 13:06-0500 SaO2% (BldA) [Mass fraction] 94 % Dr. Shayna Malhotra MD Work Phone: [facility] 07-04-2024 13:06-0500 Systolic blood pressure 142 mm[Hg] Dr. Shayna Malhotra MD Work Phone: [facility] 01-09-2023 19:06-0400 Body temperature 99.5 [degF] Dr. Shayna Malhotra Work Phone: [facility] 01-09-2023 19:06-0400 Heart rate 115 /min Dr. Shayna Malhotra Work Phone: [facility] 01-09-2023 19:06-0400 Respiratory rate 16 /min Dr. Shayna Malhotra Work Phone: [facility] 01-09-2023 19:06-0400 SaO2% (BldA) [Mass fraction] 95 % Dr. Shayna Mahlotra Work Phone: [facility] 01-09-2023 17:53-0400 Diastolic blood pressure 89 mm[Hg] Dr. Shayna Malhotra Work Phone: [facility] 01-09-2023 17:53-0400 Systolic blood pressure 166 mm[Hg] Dr. Shayna Malhotra Work Phone: [facility] 01-09-2023 17:15-0400 Body height 165.[address] Shayna Malhotra Work Phone: [facility] 01-09-2023 17:15-0400 Body mass index (BMI) [Ratio] 51 kg/m2 Dr. Shayna Malhotra Work Phone: [facility] 01-09-2023 17:15-0400 Body weight 139.[address] Shayna Malhotra Work Phone: [facility] 11-24-2022 13:42-0400 Body mass index (BMI) [Ratio] 51.4 kg/m2 Dr. Shayna Malhotra Work Phone: [facility] 11-24-2022 13:42-0400 Body temperature 97.9 [degF] Dr. Shayna Malhotra Work Phone: [facility] 11-24-2022 13:42-0400 Body weight 140.[address] Shayna Malhotra Work Phone: [facility] 11-24-2022 13:42-0400 Diastolic blood pressure 67 mm[Hg] Dr. Shayna Malhotra Work Phone: [facility] 11-24-2022 13:42-0400 Heart rate 112 /min Dr. Shayna Malhotra Work Phone: [facility] 11-24-2022 13:42-0400 Respiratory rate 20 /min Dr. Shayna Malhotra Work Phone: [facility] 11-24-2022 13:42-0400 SaO2% (BldA) [Mass fraction] 92 % Dr. Shayna Malhotra Work Phone: [facility] 11-24-2022 13:42-0400 Systolic blood pressure 125 mm[Hg] Dr. Shayna Malhotra Work Phone: [facility] 05-06-2022 16:07-0500 Body height 165.[address] Shayna Malhotra Work Phone: [facility] 05-06-2022 16:07-0500 Body mass index (BMI) [Ratio] 49.4 kg/m2 Dr. Shayna Malhtora Work Phone: [facility] 05-06-2022 16:07-0500 Body temperature 98.6 [degF] Dr. Shayna Malhotra Work Phone: [facility] 05-06-2022 16:07-0500 Body weight 134.[address] Shayna Malhotra Work Phone: [facility] 05-06-2022 16:07-0500 Diastolic blood pressure 91 mm[Hg] Dr. Shayna Malhotra Work Phone: [facility] 05-06-2022 16:07-0500 Heart rate 118 /min Dr. Shayna Malhotra Work Phone: [facility] 05-06-2022 16:07-0500 Respiratory rate 18 /min Dr. Shayna Malhotra Work Phone: [facility] 05-06-2022 16:07-0500 SaO2% (BldA) [Mass fraction] 96 % Dr. Shayna Malhotra Work Phone: [facility] 05-06-2022 16:07-0500 Systolic blood pressure 167 mm[Hg] Dr. Shayna Malhotra Work Phone: [facility] 11-24-2021 16:06-0400 Heart rate 100 /min Dr. Shayna Malhotra Work Phone: [facility] Work Phone: 11-24-2021 16:04-0400 Body temperature 98.4 [degF] Dr. Shayna Malhotra Work Phone: [facility] Work Phone: 11-24-2021 16:04-0400 Diastolic blood pressure 82 mm[Hg] Dr. Shayna Malhotra Work Phone: [facility] Work Phone: 11-24-2021 16:04-0400 Respiratory rate 17 /min Dr. Shayna Malhotra Work Phone: [facility] Work Phone: 11-24-2021 16:04-0400 SaO2% (BldA) [Mass fraction] 95 % Dr. Shayna Malhotra Work Phone: [facility] Work Phone: 11-24-2021 16:04-0400 Systolic blood pressure 147 mm[Hg] Dr. Shayna Malhotra Work Phone: [facility] Work Phone: 11-24-2021 08:43-0400 Body temperature 98 [degF] Dr. Shayna Malhotra Work Phone: [facility] Work Phone: 11-24-2021 08:43-0400 Diastolic blood pressure 61 mm[Hg] Dr. Shayna Malhotra Work Phone: [facility] Work Phone: 11-24-2021 08:43-0400 Heart rate 94 /min Dr. Shayna Malhotra Work Phone: [facility] Work Phone: 11-24-2021 08:43-0400 Respiratory rate 15 /min Dr. Shayna Malhotra Work Phone: [facility] Work Phone: 11-24-2021 08:43-0400 SaO2% (BldA) [Mass fraction] 95 % Dr. Shayna Malhotra Work Phone: [facility] Work Phone: 11-24-2021 08:43-0400 Systolic blood pressure 113 mm[Hg] Dr. Shayna Malhotra Work Phone: [facility] Work Phone: 11-24-2021 06:00-0400 Body weight 141.[address] Shayna Malhotra Work Phone: [facility] Work Phone: 11-23-2021 09:21-0400 Body height 165.[address] Shayna Malhotra Work Phone: [facility] Work Phone: 11-22-2021 17:49-0400 Body height 165.[address] Shayna Malhotra Work Phone: [facility] Work Phone: 11-22-2021 17:49-0400 Body mass index (BMI) [Ratio] 51.5 kg/m2 Dr. Shayna Malhotra Work Phone: [facility] Work Phone: 11-22-2021 17:49-0400 Body weight 140.[address] Shayna Malhotra Work Phone: [facility] Work Phone: 11-22-2021 17:05-0400 Body temperature 98.9 [degF] Dr. Shayna Malhotra Work Phone: [facility] Work Phone: 11-22-2021 17:05-0400 Diastolic blood pressure 78 mm[Hg] Dr. Shayna Malhotra Work Phone: [facility] Work Phone: 11-22-2021 17:05-0400 Heart rate 120 /min Dr. Shayna Malhotra Work Phone: [facility] Work Phone: 11-22-2021 17:05-0400 Respiratory rate 28 /min Dr. Shayna Malhotra Work Phone: [facility] Work Phone: 11-22-2021 17:05-0400 SaO2% (BldA) [Mass fraction] 96 % Dr. Shayna Malhotra Work Phone: [facility] Work Phone: 11-22-2021 17:05-0400 Systolic blood pressure 119 mm[Hg] Dr. Shayna Malhotra Work Phone: [facility] Work Phone: 10-02-2021 12:46-0400 Body height 165.1 cm Jennifer Cuevas MD Work Phone: [facility] 10-02-2021 12:46-0400 Body temperature 97.39 [degF] Jennifer Cuevas MD Work Phone: [facility] 10-02-2021 12:46-0400 Body weight 136.53 kg Jennifer Cuevas MD Work Phone: [facility] 10-02-2021 12:46-0400 Diastolic blood pressure 85 mm[Hg] Jennifer Cuevas MD Work Phone: [facility] 10-02-2021 12:46-0400 Heart rate 103 /min Jennifer Cuevas MD Work Phone: [facility] 10-02-2021 12:46-0400 Respiratory rate 20 /min Jennifer Cuevas MD Work Phone: [facility] 10-02-2021 12:46-0400 SaO2% (BldA) [Mass fraction] 98 % Jennifer Cuevas MD Work Phone: [facility] 10-02-2021 12:46-0400 Systolic blood pressure 152 mm[Hg] Jennifer Cuevas MD Work Phone: [facility] 09-22-2021 09:30-0400 Body temperature 98.4 [degF] Dr. Shayna Malhotra Work Phone: [facility] Work Phone: 09-22-2021 09:30-0400 Diastolic blood pressure 87 mm[Hg] Dr. Shayna Malhotra Work Phone: [facility] Work Phone: 09-22-2021 09:30-0400 Heart rate 85 /min Dr. Shayna Malhotra Work Phone: [facility] Work Phone: 09-22-2021 09:30-0400 Respiratory rate 17 /min Dr. Shayna Malhotra Work Phone: [facility] Work Phone: 09-22-2021 09:30-0400 SaO2% (BldA) [Mass fraction] 94 % Dr. Shayna Malhotra Work Phone: [facility] Work Phone: 09-22-2021 09:30-0400 Systolic blood pressure 151 mm[Hg] Dr. Shayna Malhotra Work Phone: [facility] Work Phone: 09-20-2021 13:57-0400 Body height 166.[address] Shayna Malhotra Work Phone: [facility] Work Phone: 09-20-2021 13:57-0400 Body weight 137.[address] Shayna Malhotra Work Phone: [facility] Work Phone: 09-20-2021 12:38-0400 Body mass index (BMI) [Ratio] 49.6 kg/m2 Dr. Shayna Malhotra Work Phone: [facility] Work Phone: 09-20-2021 12:06-0400 Body temperature 98 [degF] Dr. Shayna Malhotra Work Phone: [facility] Work Phone: 09-20-2021 12:06-0400 Diastolic blood pressure 71 mm[Hg] Dr. Shayna Malhotra Work Phone: [facility] Work Phone: 09-20-2021 12:06-0400 Heart rate 101 /min Dr. Shayna Malhotra Work Phone: [facility] Work Phone: 09-20-2021 12:06-0400 Respiratory rate 16 /min Dr. Shayna Malhotra Work Phone: [facility] Work Phone: 09-20-2021 12:06-0400 SaO2% (BldA) [Mass fraction] 97 % Dr. Shayna Malhotra Work Phone: [facility] Work Phone: 09-20-2021 12:06-0400 Systolic blood pressure 163 mm[Hg] Dr. Shayna Malhotra Work Phone: [facility] Work Phone: 09-20-2021 07:17-0400 Body height 165.[address] Shayna Malhotra Work Phone: [facility] Work Phone: 09-20-2021 07:17-0400 Body mass index (BMI) [Ratio] 52.5 kg/m2 Dr. Shayna Malhotra Work Phone: [facility] Work Phone: 09-20-2021 07:17-0400 Body weight 143.[address] Shayna Malhotra Work Phone: [facility] Work Phone: 09-01-2021 15:00-0400 Body height 165.1 cm Pst 1 [facility] 09-01-2021 15:00-0400 Body temperature 97.5 [degF] Pst 1 [facility] 09-01-2021 15:00-0400 Body weight 128.82 kg Pst 1 [facility] 09-01-2021 15:00-0400 Diastolic blood pressure 71 mm[Hg] Pst 1 [facility] 09-01-2021 15:00-0400 Heart rate 97 /min Pst 1 [facility] 09-01-2021 15:00-0400 Respiratory rate 18 /min Pst 1 [facility] 09-01-2021 15:00-0400 SaO2% (BldA) [Mass fraction] 97 % Pst 1 [facility] 09-01-2021 15:00-0400 Systolic blood pressure 127 mm[Hg] Pst 1 [facility] 08-11-2021 09:26-0500 Body mass index (BMI) [Ratio] 50.9 kg/m2 Dr. Shayna Malhotra Work Phone: [facility] Work Phone: 08-11-2021 09:26-0500 Body temperature 98.2 [degF] Dr. Shayna Malhotra Work Phone: [facility] Work Phone: 08-11-2021 09:26-0500 Body weight 138.[address] Shayna Malhotra Work Phone: [facility] Work Phone: 08-11-2021 09:26-0500 Diastolic blood pressure 83 mm[Hg] Dr. Shayna Malhotra Work Phone: [facility] Work Phone: 08-11-2021 09:26-0500 Heart rate 114 /min Dr. Shayna Malhotra Work Phone: [facility] Work Phone: 08-11-2021 09:26-0500 Respiratory rate 16 /min Dr. Shayna Malhotra Work Phone: [facility] Work Phone: 08-11-2021 09:26-0500 SaO2% (BldA) [Mass fraction] 96 % Dr. Shayna Malhotra Work Phone: [facility] Work Phone: 08-11-2021 09:26-0500 Systolic blood pressure 151 mm[Hg] Dr. Shayna Malhotra Work Phone: [facility] Work Phone: 08-11-2021 08:26-0500 Body mass index (BMI) [Ratio] 50.9 kg/m2 Dr. Shayna Malhotra Work Phone: [facility] Work Phone: 08-11-2021 08:26-0500 Body temperature 98.2 [degF] Dr. Shayna Malhotra Work Phone: [facility] Work Phone: 08-11-2021 08:26-0500 Body weight 138.[address] Shayna Malhotra Work Phone: [facility] Work Phone: 08-11-2021 08:26-0500 Diastolic blood pressure 83 mm[Hg] Dr. Shayna Malhotra Work Phone: [facility] Work Phone: 08-11-2021 08:26-0500 Heart rate 114 /min Dr. Shayna Malhotra Work Phone: [facility] Work Phone: 08-11-2021 08:26-0500 Respiratory rate 16 /min Dr. Shayna Malhotra Work Phone: [facility] Work Phone: 08-11-2021 08:26-0500 SaO2% (BldA) [Mass fraction] 96 % Dr. Shayna Malhotra Work Phone: [facility] Work Phone: 08-11-2021 08:26-0500 Systolic blood pressure 151 mm[Hg] Dr. Shayna Malhotra Work Phone: [facility] Work Phone: 07-30-2021 14:36-0500 Body mass index (BMI) [Ratio] 50.8 kg/m2 Dr. Shayna Malhotra Work Phone: [facility] Work Phone: 07-30-2021 14:36-0500 Body temperature 98.6 [degF] Dr. Shayna Malhotra Work Phone: [facility] Work Phone: 07-30-2021 14:36-0500 Body weight 138.[address] Shayna Malhotra Work Phone: [facility] Work Phone: 07-30-2021 14:36-0500 Heart rate 106 /min Dr. Shayna Malhotra Work Phone: [facility] Work Phone: 07-30-2021 14:36-0500 Respiratory rate 15 /min Dr. Shayna Malhotra Work Phone: [facility] Work Phone: 07-30-2021 13:36-0500 Body mass index (BMI) [Ratio] 50.8 kg/m2 Dr. Shayna Malhotra Work Phone: [facility] Work Phone: 07-30-2021 13:36-0500 Body temperature 98.6 [degF] Dr. Shayna Malhotra Work Phone: [facility] Work Phone: 07-30-2021 13:36-0500 Body weight 138.[address] Shayna Malhotra Work Phone: [facility] Work Phone: 07-30-2021 13:36-0500 Heart rate 106 /min Dr. Shayna Malhotra Work Phone: [facility] Work Phone: 07-30-2021 13:36-0500 Respiratory rate 15 /min Dr. Shayna Malhotra Work Phone: [facility] Work Phone: 07-26-2021 12:28-0500 Diastolic blood pressure 72 mm[Hg] Dr. Shayna Malhotra Work Phone: [facility] Work Phone: 07-26-2021 12:28-0500 Heart rate 98 /min Dr. Shayna Malhotra Work Phone: [facility] Work Phone: 07-26-2021 12:28-0500 Respiratory rate 23 /min Dr. Shayna Malhotra Work Phone: [facility] Work Phone: 07-26-2021 12:28-0500 SaO2% (BldA) [Mass fraction] 99 % Dr. Shayna Malhotra Work Phone: [facility] Work Phone: 07-26-2021 12:28-0500 Systolic blood pressure 140 mm[Hg] Dr. Shayna Malhotra Work Phone: [facility] Work Phone: 07-26-2021 11:28-0500 Diastolic blood pressure 72 mm[Hg] Dr. Shayna Malhotra Work Phone: [facility] Work Phone: 07-26-2021 11:28-0500 Heart rate 98 /min Dr. Shayna Malhotra Work Phone: [facility] Work Phone: 07-26-2021 11:28-0500 Respiratory rate 23 /min Dr. Shayna Malhotra Work Phone: [facility] Work Phone: 07-26-2021 11:28-0500 SaO2% (BldA) [Mass fraction] 99 % Dr. Shayna Malhotra Work Phone: [facility] Work Phone: 07-26-2021 11:28-0500 Systolic blood pressure 140 mm[Hg] Dr. Shyana Malhotra Work Phone: [facility] Work Phone: 07-26-2021 09:16-0500 Body mass index (BMI) [Ratio] 52.2 kg/m2 Dr. Shayna Malhotra Work Phone: [facility] Work Phone: 07-26-2021 09:16-0500 Body temperature 97.2 [degF] Dr. Shayna Malhotra Work Phone: [facility] Work Phone: 07-26-2021 09:16-0500 Body weight 142.[address] Shayna Malhotra Work Phone: [facility] Work Phone: 07-26-2021 08:16-0500 Body mass index (BMI) [Ratio] 52.2 kg/m2 Dr. Shayna Malhotra Work Phone: [facility] Work Phone: 07-26-2021 08:16-0500 Body temperature 97.2 [degF] Dr. Shayna Malhotra Work Phone: [facility] Work Phone: 07-26-2021 08:16-0500 Body weight 142.[address] Shayna Malhotra Work Phone: [facility] Work Phone: 10-26-2016 15:36-0400 BMI (Body Mass Index) 41.6 kg/m2 Sena Cox NP [facility] Work Phone: 10-26-2016 15:36-0400 BP Diastolic 97 mm[Hg] Sena Cox NP [facility] Work Phone: 10-26-2016 15:36-0400 BP Systolic 155 mm[Hg] Sena Cox NP [facility] Work Phone: 10-26-2016 15:36-0400 BSA (Body Surface Area) 2.12 m2 Sena Cox NP [facility] Work Phone: 10-26-2016 15:36-0400 Height 162.56 cm Sena Cox NP [facility] Work Phone: 10-26-2016 15:36-0400 Pulse (Heart Rate) 101 /min [facility] Work Phone: 10-26-2016 15:36-0400 Pulse Oximetry 97 % Sena Cox NP [facility] Work Phone: 10-26-2016 15:36-0400 Respiratory Rate 16 /min Sen[facility] Cox NP [facility] Work Phone: 10-26-2016 15:36-0400 Weight 109.95 kg Sen[facility] Work Phone: Encounters Encounter Date Encounter Type Care Provider Facility Start: 04-16-2025 ambulatory Shayna Marya Facility :[facility] Start: 04-01-2025 ambulatory Shaynadesi Malhotra Facility :[facility] Start: 03-20-2025 ambulatory Shaynadesi Malhotra Facility :[facility] Start: 01-21-2025 ambulatory Shaynadesi Malhotra Facility :[facility] Start: 01-21-[address] Malathi Tomas MD -[facility] Work Phone: Start: 12-04-2024 End: 12-04-[address] Shayna Malhotra MD Work Phone: [facility] [facility] Start: 12-04-2024 End: 12-04-[address] Malathi Tomas MD -[facility] Start: 12-04-2024 End: 12-04-2024 ambulatory Shaynadesi Malhotra Facility:[facility] Start: 11-26-2024 ambulatory Shaynadesi Malhotra Facility :[facility] Start: 11-26-[address] Malathi Tomas MD -[facility] Start: 11-07-2024 ambulatory Shaynadesi Malhotra Facility :[facility] Start: 11-01-2024 ambulatory Shayna Malhotra Facility :[facility] Start: 10-30-2024 ambulatory Shaynadesi Malhotra Facility :[facility] Start: 10-25-2024 ambulatory Shaynadesi Malhotra Facility :[facility] Start: 10-11-2024 End: 10-11-2024 ambulatory Shea Lele Facility:[facility] Start: 10-10-2024 Non-patient / Non-visit Dr. Tyrell Page MD -[facility] Work Phone: Start: 10-09-2024 ambulatory Missael Whitfield ty:[facility] Start: 10-09-2024 End: 05-08-2025 Evaluation and management of inpatient Dr. Missael Hernandez DO -[facility] 3 Work Phone: Start: 10-09-2024 Registered Referred Shayna Resendez [facility] Work Phone: Start: 10-08-2024 End: 10-09-2024 ambulatory Shayna ROSA Facility:[facility] Start: 07-09-2024 ambulatory Shayna ROSA Faci lity:[facility] Start: 07-09-2024 Registered Referred Shayna Resendez [facility] Work Phone: Start: 07-04-2024 End: 07-04-[address] Shayna Malhotra MD -[facility] Work Phone: Start: 07-04-2024 End: 07-04-2024 ambulatory Shayna Malhotra Facility:[facility] Start: 06-22-2024 ambulatory [facility] Marya Facility :[facility] Start: 05-28-2024 End: 05-28-2024 [facility] Start: 07-08-2023 End: 07-08-2023 ambulatory [facility] Work Phone: Start: 07-08-2023 End: 07-08-2023 Departed Referred [facility] Work Phone: Start: 04-08-2023 End: 04-08-2023 Departed Referred [facility] Work Phone: Start: 01-09-2023 End: 01-09-2023 Emergency department patient visit Dr. Shayna Malhotra Work Phone: [facility]-Emergency Department Work Phone: Start: 11-24-2022 End: 11-24-[address] Shayna Malhotra Work Phone: [facility] Work Phone: Start: 10-13-2022 End: 10-13-[address] Shayna Malhotra Work Phone: [facility] Work Phone: Start: 08-12-2022 End: 08-12-[address] Shayna Malhotra Work Phone: [facility] Work Phone: Start: 08-12-2022 End: 08-12-[address] Shayna Malhotra Work Phone: [facility] Start: 07-13-2022 End: 07-13-[address] Shayna Malhotra Work Phone: [facility] Work Phone: Start: 07-13-2022 End: 07-13-[address] Shayna Malhotra Work Phone: [facility] Start: 06-08-2022 End: 06-08-[address] Shayna Malhotra Work Phone: [facility] Work Phone: Start: 06-08-2022 End: 06-08-[address] Shayna Malhotra Work Phone: [facility] Start: 05-06-2022 End: 05-06-[address] Shayna Malhotra Work Phone: [facility] Start: 04-13-2022 End: 04-13-2022 ambulatory [facility] Work Phone: Start: 04-13-2022 End: 04-13-2022 Departed Referred [facility] Start: 01-01-2022 End: 01-01-[address] Shayna Malhotra Work Phone: [place] [phone] Start: 12-11-[address] Shayna Malhotra Work Phone: [facility] 300 Start: 12-01-[address] Shayna Malhotra Work Phone: [facility] 100/200 Start: 11-27-[address] Shayna Malhotra Work Phone: [facility] 100/200 Start: 11-24-2021 Non-patient / Non-visit Dr. Maryanne Malhotra Work Phone: [facility] Start: 11-23-2021 Non-patient / Non-visit Dr. Maryanne Malhotra Work Phone: [facility] Start: 11-23-2021 End: 11-24-2021 Non-patient / Non-visit Dr. Shayna Malhotra Work Phone: [facility] Start: 11-22-2021 Non-patient / Non-visit Dr. Maryanne Malhotra Work Phone: [facility] Start: 11-22-2021 End: 11-24-2021 Evaluation and management of inpatient Dr. Shayna Malhotra Work Phone: [facility]-Intensive Care Unit Start: 10-27-2021 End: 10-27-[address] Shayna Malhotra Work Phone: [facility] Start: 10-13-2021 End: 10-13-[address] Shayna Malhotra Work Phone: [facility] Start: 10-13-[address] Shayna Malhotra Work Phone: [facility] Start: 10-02-2021 End: 10-02-2021 ambulatory Jennifer Cuevas MD Work Phone: [facility] Gynecology Oncology Comment on above: Endometrial cancer ( HCC) (Primary Dx) Start: 10-02-2021 End: 10-02-2021 Patient encounter procedure Jennifer Cuevas MD Work Phone: [facility] Start: 09-22-2021 Non-patient / Non-visit Dr. Maryanne Malhotra Work Phone: [facility] Start: 09-21-2021 Telephone encounter Jennifer prasad MD Work Phone: [facility] Gynecology Oncology Comment on above: Appointment Cancelle d Start: 09-21-2021 Non-patient / Non-visit Dr. Maryanne Malhotra Work Phone: [facility] Start: 09-20-2021 Non-patient / Non-visit Dr. Maryanne Malhotra Work Phone: [facility] Start: 09-20-2021 End: 09-22-2021 Evaluation and management of inpatient Dr. Shayna Malhotra Work Phone: [facility] 3 Start: 09-10-2021 Telephone encounter Taniya Balderas APRN.CNP Work Phone: [facility] Gynecology Oncology Comment on above: Results Start: 09-10-2021 End: 09-10-[address] Shayna Malhotra Work Phone: [facility] Start: 09-10-[address] Shayna Malhotra Work Phone: [facility] Start: 09-09-2021 Telephone encounter Jennifer prasad MD Work Phone: [facility] Gynecology Oncology Comment on above: Patient Update Start: 09-01-2021 End: 09-01-2021 Admission to [address] Start: 09-01-2021 End: 09-01-2021 ambulatory Pst [...] encounter procedure Dr. Shay[facility] Start: 08-07-2021 End: 08-07-[address] hSayna Malhotra [facility] Phone[facility] Start: 07-30-[address] Shayna Malhotra Work Phone: [facility] Oncology Start: 07-30-2021 End: 07-30-[address] Shayna Malhotra Work Phone: [facility] Cancer Care Start: 07-26-2021 End: 07-26-2021 Emergency department patient visit Dr. Shayna Malhotra Work Phone: [facility]-Emergency Department Start: 07-14-[address] Shayna Malhotra Work Phone: [facility] Start: 07-08-[address] Shayna Malhotra Work Phone: [facility] Start: 06-12-[address] Shayna Malhotra Work Phone: [facility] Procedures Date Procedure Procedure Detail Performing Clinician [...] Speci men Type: BLOOD SPECIMEN Ordering Facility: [facility] Address: [address] [place], [place] [id number] Performed By: #### T [id number] #### [facility] BLOOD BANK CLIA [id number] [address] Start: 08-11-2021 Plain chest X-ray Dr. [...] Activity Detail Author Start: 10-11-2024 Patient discharge [facility] Start: 10-10-2024 [facility] Start: 10-10-2024 Consultation [facility] Start: 10-10-2024 Patient referral to dietitian [facility] Start: 10-09-2024 Following clinical pathway protocol [facility] Start: 10-09-2024 Assessment of risk o f venous thromboembolism [facility] Start: 10-09-2024 Care regimes management [facility] Start: 10-09-2024 Incentive spirometry [facility] Start: 10-09-2024 Insertion of cathete r into peripheral vein [facility] Start: 10-09-2024 Measuring intake and output [facility] Start: 10-09-2024 Notification of physician [facility] Start: 10-09-2024 Oxygen therapy [facility] Start: 10-09-2024 Providing care accor ding to standard [facility] Start: 10-09-2024 Provision of activit y privileges [facility] Start: 10-09-2024 Referral to occupati onal therapist [facility] Start: 10-09-2024 Referral to service [facility] Start: 10-09-2024 Seizure precautions [facility] Start: 10-09-2024 End: 10-09-2024 [facility] Start: 10-09-2024 MR Lower extremity W O contrast [facility] Start: 10-09-2024 MRI of lower extremity Extremi ty Lower without Contra [facility] Start: 10-09-2024 Verification routine [facility] Start: 10-09-2024 Admission procedure [facility] Start: 10-09-2024 Hospital admission, emergency, from emergency room, medical nature [facility] Start: 10-09-2024 End: 10-10-2024 [facility] Start: 10-09-2024 Thyroid stimulating hormone measurement [facility] Start: 10-09-2024 Consultation [facility] Start: 10-09-2024 Bacteria identified in Urine by Culture Urine Culture [facility] Start: 10-09-2024 Urine culture [facility] Start: 10-09-2024 Consultation [facility] Start: 10-09-2024 Patient referral to dietitian [facility] Start: 09-07-2024 DIABETES SCREEN DIABETES SCREEN [facility] Start: 07-04-2024 Patient referral [facility] Work Phone: Start: 11-24-2022 Patient referral [facility] Work Phone: Start: 05-06-2022 Patient referral [facility] Work Phone: Start: 02-04-2022 Influenza vaccination INFLUENZ A (Season Ended) [facility] Start: 11-25-2021 [facility] Work Phone: Start: 11-24-2021 Patient discharge [facility] Work Phone: Start: 11-22-2021 Troponin I measurement [facility] Work Phone: Start: 11-22-2021 Verification routine [facility] Work Phone: Start: 11-22-2021 Patient referral to dietitian [facility] Work Phone: Start: 11-22-2021 Following clinical pathway protocol [facility] Work Phone: Start: 11-22-2021 Assessment of risk o f venous thromboembolism [facility] Work Phone: Start: 11-22-2021 Care regimes management [facility] Work Phone: Start: 11-22-2021 Catheterization of vein [facility] Work Phone: Start: 11-22-2021 Insertion of cathete r into peripheral vein [facility] Work Phone: Start: 11-22-2021 Measuring intake and output [facility] Work Phone: Start: 11-22-2021 Providing care accor ding to standard [facility] Work Phone: Start: 11-22-2021 Provision of activit y privileges [facility] Work Phone: Start: 11-22-2021 Referral to occupati onal therapist [facility] Work Phone: Start: 11-22-2021 Referral to service [facility] Work Phone: Start: 11-22-2021 [facility] Work Phone: Start: 11-22-2021 Viral nucleic acid assay [facility] Work Phone: Start: 11-22-2021 Admission procedure [facility] Work Phone: Start: 11-22-2021 [facility] Work Phone: Start: 11-22-2021 End: 11-23-2021 [facility] Work Phone: Start: 11-22-2021 End: 11-22-2021 Blood culture [facility] Work Phone: Start: 09-22-2021 Patient discharge [facility] Work Phone: Start: 09-20-2021 End: 09-21-2021 [facility] Work Phone: Start: 09-20-2021 Following clinical pathway protocol [facility] Work Phone: Start: 09-20-2021 Assessment of risk o f venous thromboembolism [facility] Work Phone: Start: 09-20-2021 Care regimes management [facility] Work Phone: Start: 09-20-2021 Elevation of affecte d extremity [facility] Work Phone: Start: 09-20-2021 Insertion of cathete r into peripheral vein [facility] Work Phone: Start: 09-20-2021 Notification of physician [facility] Work Phone: Start: 09-20-2021 Providing care accor ding to standard [facility] Work Phone: Start: 09-20-2021 Provision of activit y privileges [facility] Work Phone: Start: 09-20-2021 Referral to occupati onal therapist [facility] Work Phone: Start: 09-20-2021 Referral to service [facility] Work Phone: Start: 09-20-2021 Self-administration of medication [facility] Work Phone: Start: 09-20-2021 Admission procedure [facility] Work Phone: Start: 09-20-2021 Patient referral to dietitian [facility] Work Phone: Start: 09-01-2021 End: 11-01-2021 CBC panel - Blood by Automated count [facility] Work Phone: Comment on above: Expected: 09/01/2021 , Expires: 11/01/2021 Start: 09-01-2021 End: 11-01-2021 CONFIRM BLOOD TYPE [facility] Work Phone: Comment on above: Expected: 09/01/2021 , Expires: 11/01/2021 Start: 09-01-2021 End: 11-01-2021 TYPE AND SCREEN,30 DAY [facility] Work Phone: Comment on above: Expected: 09/01/2021 , Expires: 11/01/2021 Start: 07-26-2021 Referral to oncologist [facility] Work Phone: Start: 06-06-2021 ADVANCE DIRECTIVE DISCUSSION ADVANCE DIRECTIVE DISCUSSION [facility] Start: 02-09-2021 LIPID SCREEN LIPID SCREEN [facility] Start: 02-04-2021 Influenza vaccination INFLUENZA (#1) [facility] Start: 03-01-2019 DIABETES SCREEN DIABETES SCREEN [facility] Start: 2017 BONE DENSITY BONE DENSITY [facility] Start: 2017 PNEUMOVAX AGE 65 AND OVER WITH 5YR LOOKBACK (#1) PNEUMOVAX AGE 65 AND OVER WITH 5YR LOOKBACK (#1) [facility] Start: 02-09-2017 Adult depression screening assessment DEPRESSION SCREENING [facility] Start: 02-09-2017 Mammography MAMMOGRAM [facility] Start: 12-09-2016 End: 12-09-2016 Appointment [facility] Work Phone: Start: 10-26-2016 End: 10-26-2016 Appointment Appointment [facility] Work Phone: Start: 10-26-2016 End: 10-26-2016 Appointment Appointment [facility] Work Phone: Start: 10-26-2016 End: 11-01-2016 *CMP Complete Metabolic Panel *CMP Complete Metabolic Panel [facility] Work Phone: Start: 10-26-2016 End: 11-01-2016 *Microalbumin, Creatine Ratio, rand urine *Microalbumin, Creatine Ratio, rand urine [facility] Work Phone: Start: 10-26-2016 End: 11-01-2016 HbA1c *HgA1C [facility] Work Phone: Start: 10-26-2016 End: 11-01-2016 Lipid panel [AGGREGATE] *Lipid Profile [facility] Work Phone: Start: 09-05-2011 PNEUMOCOCCAL: 65+ (2 - PCV) PNEUMOCOCCAL: 65+ (2 - PCV) [facility] Start: 2002 SHINGRIX VACCINE (1 of 2) SHINGRIX VACCINE (1 of 2) [facility] Start: 1997 COLOGUARD (FIT-DNA) COLOGUARD (FIT-D NA) [facility] Start: 1997 Colonoscopy COLONOSCOPY [facility] Start: 1997 COLORECTAL CANCER SCREENING COLORECTAL CANCER SCREENING [facility] Start: [address] COLONOGRAPHY [facility] Start: 1997 FECAL OCCULT BLOOD FECAL OCCULT BLOO D [facility] Start: 1997 SIGMOIDOSCOPY SIGMOIDOSCOPY [facility] Start: 12-28-1971 SHINGRIX VACCINE (1 of 2) SHINGRIX VACCINE (1 of 2) [facility] Start: 12-28-1971 Urine microalbumin profile DTAP,TDAP,TD (1 - Tdap) [facility] Start: 1957 COVID-19 VACCINE (#1) COVID-19 VACCI NE (#1) [facility] Start: 1957 COVID-19 VACCINE (1) COVID-19 VACCIN E (1) [facility] Amphetamines [Presen ce] in Urine by Screen method >1000 ng/mL [facility] Bacteria identified in Blood by Culture Blood Culture [facility] Work Phone: Bacteria identified in Urine by Culture Urine Culture [facility] Work Phone: Benzodiazepine measurement, urine [facility] Blood culture [facility] Work Phone: C reactive protein [Mass/volume] in Serum or Plasma [facility] Cancer Ag 125 [Units/volume] in Serum or Plasma [facility] Work Phone: Cocaine measurement, urine [facility] Erythrocyte sedimentation rate [facility] Ethanol [Mass/volume ] in Serum or Plasma [facility] fentaNYL [Presence] in Urine by Screen method [facility] Folate [Moles/volume ] in Serum or Plasma [facility] Hemoglobin A1c/Hemoglobin.total in Blood [facility] Magnesium measurement [facility] Methadone measuremen t, urine [facility] Patient Education [facility] docrinology Work Phone: Patient referral [facility] Work Phone: Phencyclidine [Prese nce] in Urine [facility] Troponin I measurement [facility] Work Phone: Urine cannabinoid measurement [facility] Urine culture [facility] Urine opiate measurement [facility] Immunizations Immunization Date Immunization Notes Care Provider Arlin sen 03-30-2016 influenza, injectabl e, quadrivalent, preservative free [facility] 03-30-2016 influenza, seasonal, injectable Dr. Shayna Malhotra Work Phone: [facility] 10-31-2012 influenza, injectabl e, quadrivalent, preservative free [facility] 10-31-2012 influenza, seasonal, injectable Dr. Shayna Malhotra Work Phone: [facility] 06-06-2012 pneumococcal polysaccharide vaccine, [address] hSayna Malhotra Work Phone: [facility] 09-04-2010 pneumococcal polysaccharide vaccine, [address] [facility] Work Phone: Payers Date Payer Category Payer Self-pay [id number] 2021 Medicare [id number] 2016 Unknown [id number] 2016 Unknown [id number] Unknown [id number] 2.16.8 [id number] Unknown [id number] 2.16.8 [id number] Unknown [id number] 2.16.8 [id number] Unknown [id number] 2.16.8 [id number] Unknown [id number] 2.16.8 [id number] Unknown [id number] 2.16.8 40.1.484261.3.579.2.462 Unknown [id number] 2.16.8 [id number] Unknown [id number] 2.16.8 40.1.380188.3.579.2.462 Unknown [id number] 2.16.8 40.1.660931.3.579.2.462 Unknown [id number] 2.16.8 40.1.167643.3.579.2.462 Unknown [id number] 2.16.8 40.1.986254.3.579.2.462 Unknown [id number] 2.16.8 40.1.183148.3.579.2.462 Unknown [id number] 2.16.8 40.1.522031.3.579.2.462 Unknown [id number] 2.16.8 40.1.041517.3.579.2.462 Unknown [id number] 2.16.8 40.1.377979.3.579.2.462 Unknown [id number] 2.16.8 40.1.173662.3.579.2.462 Unknown [id number] 2.16.8 40.1.194975.3.579.2.462 Unknown [id number] 2.16.8 40.1.886425.3.579.2.462 Unknown [id number] 2.16.8 [id number] Unknown [id number] 2.16.8 [id number] Unknown [id number] 2.16.8 [id number] Social History Date Type Detail Facility Start: 07-29-2021 End: 10-09-2024 Tobacco smoking status [facility] Ex-smoker [facility] History of tobacco use Cigarette Smoker [facility] Start: 07-29-2021 Cigarettes smoked current (pack per day) - Reported 0.5 [facility] Start: 07-29-2021 Tobacco use and exposure Smokeless tobacco non-user [facility] Start: 09-01-2021 End: 10-02-2021 Alcohol intake Current non-drinker of alcohol (finding) [facility] Start: 1950 Sex Assigned At Not on file [facility] Start: 08-22-2021 End: 10-02-2021 Exposure to SARS-CoV-2 (event) Not sure [facility] Start: 09-20-2021 End: 01-09-2023 Tobacco smoking status [facility] Unknown if ever smoked [facility] Start: 08-02-2017 None [facility] Start: 08-02-2017 Alone [facility] Start: 08-02-2017 Non-smoker [facility] Start: 1950 Sex Assigned At Female W [facility] Start: 10-09-2024 Sex Female (finding) [facility] Sex Female [facility] Medical Equipment Procedure Code Equipment Code [...] Activity Abili ty With Assist of 2 [facility] Work Phone: 10-10-2024 Functional status Active Range of Motion [facility] Work Phone: 11-24-2021 Functional status Ambulates;Chair [facility] Work Phone: 09-22-2021 Functional status Ambulates [facility] Work Phone: 09-22-2021 Functional status Ambulates [facility] Work Phone: 09-21-2021 Functional status Tolerates Activity Well [facility] Work Phone: Mental Status Date Assessment Result Facility 10-11-2024 Cognitive function Voice/Name [facility] Work Phone: 10-10-2024 Cognitive function Cooperative;Anxious;Ta lkative [facility] Work Phone: 11-24-2021 Cognitive function Voice/Name [facility] Work Phone: 09-22-2021 Cognitive function Voice/Name [facility] Work Phone: 09-20-2021 Cognitive function Level Of Cons ciousness Awake;Alert;Appropriate;Follow s Commands;Drowsy [facility] Work Phone: Clinical Notes 07-29-2021 to 10-11-2024 Note Date & Type Note Facility 10-11-2024 Note [facility] Medical Records Department [address] [place] [address] Discharge Summary 10/11/24 1135 MR#: [id number] Acct: [id number] Name: VIDA NINA Rep #: [id number] : 1950 73 From: Tyrell Page MD PCP: Dr. Shayna Malhotra MD Status:DIS IN Location: [id number] Providers Date of Admission: 10/09/24 Date of [...] status: with other specified complication Diabetes mellitus exterminator helper insulin use: with longterm use Qualified Code(s): E11.69 - Type 2 diabetes mellitus with other specified complication; Z79.4 - senior care (current) use of insulin Plan 73-year-old female [...] edema. No soft tissue gas. Will consult hyperbaric nurse for further opinion. PT and OT and [...] 72.1 H, Lymph % (Auto) 16.3 L, [place] % (Auto) 8.3, Eos % (Auto) 2.5, Baso % (more content not included)... [facility] 10-10-2024 Progress note Note Date/Time October 10, 2024 4:49pm [facility] Medical Records Department [address] [place] [address] Progress Note - Hospitalist 10/10/24 0739 MR#: [id number] Acct: [id number] Name: VIDA NINA Rep #:[id number] : 1950 73 From: Tyrell Resendez PCP: Dr. Shayna Malhotra MD Status:ADM IN Location: [place] [id number] Reason for Visit Reason for Visit: Diagnoses Type 2 diabetes mellitus with other specified complication (10/09/24) Morbid (severe) obesity due to excess calories (10/09/24) Bipolar disorder, unspecified (10/09/24) Neuralgia and neuritis, unspecified (10/09/24) Acute cystitis with hematuria (10/09/24) Very low level of personal hygiene (10/09/24) Body mass index [BMI] 45.0-49.9, adult (10/09/24) Other specified health status (10/09/24) senior care (current) use of insulin (10/09/24) Objective Data [...] 72.1 H, Lymph % (Auto) 16.3 L, Cal[place] % (Auto) 8.3, Eos % (Auto) 2.5, [...] Clarity Cloudy, Urine pH 5.0, Ur Specific [place] 1.020, Urine Protein 30 H, Urine Glucose [...] % (Auto) 65.4, Lymph % (Auto) 19.6, Calvert % (Auto) 9.1, Eos % (Auto) 5.1 [...] arthritic changes. Soft tissue swelling. Reading Location: [facility] Lower Extremity CT 10/09/24 22:15 [...] Hernandez at 2:20 a.m. 10/10/2024 Reading Location: [id number] Physical Exam Narrative Seen and examined. Patient [...] status: with other specified complication Diabetes mellitus longterm insulin use: with longterm use Qualified Code(s): E11.69 - Type 2 diabetes mellitus with other specified complication; Z79.4 - senior care (current) use of insulin PLAN: Plan 73-year-old [...] edema. No soft tissue gas. Will consult hyperbaric nurse for further opinion. PT and OT and [...] 72.1 H, Lymph % (Auto) 16.3 L, Calvert % (Auto) 8.3, Eos % (Auto) 2.5, [...] Clarity Cloudy, Urine pH 5.0, Ur Specific [place] 1.020, Urine Protein 30 H, Urine Glucose [...] % (Auto) 65.4, Lymph % (Auto) 19.6, Calvert % (Auto) 9.1, Eos % (Auto) 5.1 [...] 165 H Charges/Coding Visit Charges Inpatient E&M: 87092 Subs Hosp L2 10/10/24 1530 <Electronically signed [...] need inpatient psych unit facility transfer 10/10/24 3880<Electronically signed by Tyrell Page MD> Cosigner Signature (if applicable): cc: ~* Signed [facility] Work Phone: 1(875) 475-767105-07-2025 Progress note [facility] Medical Records Department [address] [place] [address] Progress Note - Hospitalist 10/10/24 0739 MR#: [id number] Acct: [id number] Name: VIDA NINA Rep #:[id number] : 1950 73 From: Tyrell Resendez PCP: Dr. Shayna Malhotra MD Status:ADM IN Location: [place] [address] Reason for Visit Reason for Visit: Diagnoses Type 2 diabetes mellitus with other specified complication (10/09/24) Morbid (severe) obesity due to excess calories (10/09/24) Bipolar disorder, unspecified (10/09/24) Neuralgia and neuritis, unspecified (10/09/24) Acute cystitis with hematuria (10/09/24) Very low level of personal hygiene (10/09/24) Body mass index [BMI] 45.0-49.9, adult (10/09/24) Other specified health status (10/09/24) exterminator helper (current) use of insulin (10/09/24) Objective Data [...] 72.1 H, Lymph % (Auto) 16.3 L, Calvert % (Auto) 8.3, Eos % (Auto) 2.5, [...] Clarity Cloudy, Urine pH 5.0, Ur Specific [place] 1.020, Urine Protein 30 H, Urine Glucose [...] % (Auto) 65.4, Lymph % (Auto) 19.6, Calvert % (Auto) 9.1, Eos % (Auto) 5.1 [...] arthritic changes. Soft tissue swelling. Reading Location: [facility] Lower Extremity CT 10/09/24 22:15 [...] Hernandez at 2:20 a.m. 10/10/2024 Reading Location: [id number] Physical Exam Narrative Seen and examined. Patient [...] status: with other specified complication Diabetes mellitus exterminator helper insulin use: with exterminator helper use Qualified Code(s): E11.69 - Type 2 diabetes mellitus with other specified complication; Z79.4 - exterminator helper (current) use of insulin PLAN: Plan 73-year-old [...] edema. No soft tissue gas. Will consult hyperbaric nurse for further opinion. PT and OT and [...] 72.1 H, Lymph % (Auto) 16.3 L, Calvert % (Auto) 8.3, Eos % (Auto) 2.5, [...] Clarity Cloudy, Urine pH 5.0, Ur Specific [place] 1.020, Urine Protein 30 H, Urine Glucose [...] % (Auto) 65.4, Lymph % (Auto) 19.6, Calvert % (Auto) 9.1, Eos % (Auto) 5.1 [...] 165 H Charges/Coding Visit Charges Inpatient E&M: 39182 Subs Hosp L2 10/10/24 1530 Cosigner Signature [...] Cosigner Signature (if applicable): cc: ~* Signed [facility]05-07-2025 History and physical note Author Missael Lomeli [facility] Note Date/Time October 10, 2024 6:53am [facility] Medical Records Department [address] [place] [address] H&P Exam - Hospitalist 10/09/242118 MR#: [id number] Acct: [id number] Name: VIDA NINA Rep #:[id number] : 1950 73 From: Missael Joiner DO PCP: Dr. Shayna Malhotra MD Status:ADM IN Location: [facility] [id number] [facility] - General General Date of Admission: 10/09/24 [...] is currently residing in assisted living at [facility] presents to [facility] ER complaining of worsening Left heel [...] folds and extremely poor hygiene with ASSOCIATE SCHOOL PSYCHOLOGIST having social work consulted and patient felt [...] is expected to extend beyond 2 midnights. [facility] Medical History Obesity Anxiety Cancer Anxiety Diabetes [...] acetonide 0.1 % 1 applic topical Q12H WV N PRN Rash 09/20/21 Unknown History topical [...] D #0 grams 11/24/21 Unknown Rx powder ([facility]) quetiapine 100 mg tablet 300 [...] (Auto) 72.1 H, Lymph % (Auto) 16.3 L,Calvert % (Auto) 8.3, Eos % (Auto) 2.5, [...] Clarity Cloudy, Urine pH 5.0, Ur Specific [place] 1.020, Urine Protein 30 H, Urine Glucose [...] changes. Soft tissue swelling. Reading Location: [facility] Imaging Services [address] [place] [address] Extremity Lower without Contra MR#: [id number] Acct: [id number] Name: VIDA NINA Rep #: [id number] : 1950 F 73 From: Saul Sanchez MD PCP: Dr. Shayna Malhotra MD Status: ADM IN Study: Extremity Lower without Contra Date of Exam: 10/09/24 Exam# [id number] Ordering Dr: Missael Hernandez DO PROCEDURE: EXTREMITY [...] Hernandez at 2:20 a.m. 10/10/2024 Reading Location: [id number] CC: Dr. Missael Hernandez, DO; Dr. Shayna Malhotra MD ~ Fine Arts Chair: Signed Assessment & Plan Assessment/Plan (1) Acute cystitis with hematuria: (2) Neuropathic pain of foot: (3) Poor hygiene: (4) Unable to care for self: (5) Bipolar 1 disorder: (6) Morbid obesity with BMI of 45.0-49.9, adult: (7) DM2 (diabetes mellitus, type 2): QUALIFIERS: Diabetes mellitus complication status: with other specified complication Diabetes mellitus longterm insulin use: with exterminator helper use Qualified Code(s): E11.69 - Type 2 diabetes mellitus with other specified complication; Z79.4 - senior care (current) use of insulin PLAN: Plan 1. Acute Cystitis; with microscopic hematuria in the setting of known frequent UTIs - Admit to general medical floor. Continue empiric IV ceftriaxone and await culture and sensitivity data. Give acetaminophen as needed for taoz-fg-cqmorbqc (level 1- 5/10) pain or fever. Give [...] 75 minutes. Charges/Coding Visit Charges Inpatient E&M: 91072 Init Hosp L3 10/10/24 0653 <Electronically signed by Missael Hernandez DO> Cosigner Signature (if applicable): CC: Dr. Missael Hernandez DO; Dr. Shayna Malhotra MD~ Signed [facility] Work Phone: 1(572) 524-467705-07-2025 History and physical note [facility] Medical Records Department [address] [place] [address] H&P Exam - Hospitalist 10/09/242118 MR#: [id number] Acct: [id number] Name: VIDA NINA Rep #:[id number] : 1950 73 From: Missael Joiner DO PCP: Dr. Shayna Malhotra MD Status:ADM IN Location: 3 [id number] [facility] - General General Date of Admission: 10/09/24 [...] is currently residing in assisted living at [facility] presents to [facility] ER complaining of worsening Leftheel pain [...] folds and extremely poor hygiene with ASSOCIATE SCHOOL PSYCHOLOGIST having social work consulted and patient felt [...] is expected to extend beyond 2 midnights. [facility] Medical History Obesity Anxiety Cancer Anxiety Diabetes Former smoker Hypertension DVT (deep venous thrombosis) Bipolar 1 disorder Hyperlipidemia Vitamin D deficiency History of seizures history of broken heel left foot History of recurrent UTIs Home Medications ?Medication ?Instructions ?Recorded ?Last Taken ?Type lactobacillus combination no.9 4 4,000 mmu cells PO DA SHIAR 06/25/20 Unknown History billion cell capsule (Adult [...] acetonide 0.1 % 1 applic topical Q12H WV N PRN Rash 09/20/21 Unknown History topical [...] (Auto) 72.1 H, Lymph % (Auto) 16.3 L,Calvert % (Auto) 8.3, Eos % (Auto) 2.5, [...] Clarity Cloudy, Urine pH 5.0, Ur Specific [place] 1.020, Urine Protein 30 H, Urine Glucose [...] changes. Soft tissue swelling. Reading Location: [facility] Imaging Services [address] [place] [address] Extremity Lower without Contra MR#: [id number] Acct: [id number] Name: VIDA NINA Rep #: [id number] : 1950 F 73 From: Saul Sanchez MD PCP: Dr. Shayna Malhotra MD Status: ADM IN Study: Extremity Lower without Contra Date of Exam: 10/09/24 Exam# [id number] Ordering Dr: Missael Hernandez DO PROCEDURE: EXTREMITY [...] Hernandez at 2:20 a.m. 10/10/2024 Reading Location: [facility] CC: Dr. Missael Hernandez DO; Dr. Shayna Malhotra MD ~ Fine Arts Chair: Signed Assessment & Plan Assessment/Plan (1) Acute cystitis with hematuria: (2) Neuropathic pain of foot: (3) Poor hygiene: (4) Unable to care for self: (5) Bipolar 1 disorder: (6) Morbid obesity with BMI of 45.0-49.9, adult: (7) DM2 (diabetes mellitus, type 2): QUALIFIERS: Diabetes mellitus complication status: with other specified complication Diabetes mellitus longterm insulin use: with longterm use Qualified Code(s): E11.69 - Type 2 diabetes mellitus with other specified complication; Z79.4 - exterminator helper (current) use of insulin PLAN: Plan 1. Acute Cystitis; with microscopic hematuria in the setting of known frequent UTIs - Admit to general medical floor. Continue empiric IV ceftriaxone and await culture and sensitivity data. Give acetaminophen as needed for oxnb-rc-oagjaeoo (level 1-5/10) pain or fever. Give oxycodone [...] 75 minutes. Charges/Coding Visit Charges Inpatient E&M: 51095 Init Hosp L3 10/10/24 0653 Cosigner Signature (if applicable): CC: Dr. Missael Hernandez DO; Dr. Shayna Malhotra MD~ Signed [facility]05-07-2025 Radiology Diagnostic study note [facility] Imaging Services [address] [place], [place] [address] Extremity Lower without Contra MR#: [id number] Acct: [id number] Name: VIDA NINA Rep #: [id number] : 1950 F 73 From: Daniel Sanchez MD PCP: Dr. Shayna Malhotra MD Status: ADM IN Study:Extremity Lower without Contra Date of Exam: 10/09/24 Exam# [id number] Ordering Dr: Missael Piña DO PROCEDURE: EXTREMITY [...] Hernandez at 2:20 a.m. 10/10/2024 Reading Location: [id number] CC: Dr. Missael Hernandez DO; Dr. Shayna Malhotra MD ~ Fine Arts Chair: Signed [facility]05-06-2025 Discharge summary Author Dany Richardson [facility] Note Date/Time October 09, 2024 9:22pm [facility] Medical Records Department [address] [place] [address] Emergency Department Summary 10/09/24 MR#: [id number] Acct: [id number] Name: VIDA NINA Rep #:[id number] : 1950 73 From: Dany Richardson MD PCP: Dr. Shayna Malhotra MD Status:REG ER Location: ED HPI History of Present Illness Chief Complaint: Lower Extremity Injury Narrative Narrative: 73-year-old female states that she had pins placed in her left foot approximately 15 years ago [place] after breaking her heel. She is currentlyin [facility]. She states for the last 2 weeks she has been having increasing foot pain. She states that on Tuesday, probably of the last week, she had x-raysobtained at the . She went and saw Dr. Shayna Malhotra on Tuesday, but he did not have the x-ray results. She states that she is having a lot of pain in her left heel that is worse with weightbearing and walking and palpation. She states that it feels as if she is having a baby out of her left heel. [facility] Medical History Obesity Anxiety Cancer Anxiety Diabetes [...] acetonide 0.1 % 1 applic topical Q12H WV N PRN Rash 09/20/21 Unknown History topical [...] D #0 grams 11/24/21 Unknown Rx powder ([facility]) quetiapine 100 mg tablet 300 [...] nonspecific foot pain. She was given 1 [place] for analgesia here, and x- rays were [...] plan was to discharge her back to [facility], however I was approached by the [...] 72.1 H Lymph % (Auto) 16.3 L Calvert % (Auto) 8.3 Eos % (Auto) 2.5 [...] Clarity Cloudy Urine pH 5.0 Ur Specific [place] 1.020 Urine Protein 30 H Urine Glucose [...] self, UTI (urinary tract infection) Disposition Disposition: [facility] What to do if you have Problems For any increased pain, shortness of breath, bleeding, nausea or vomiting, chestpain, or any unexpected problems, contact your Primary Care Provider. Call [facility] ([phone]) or report to the closest Emergency Room. Call 911 if necessary. 10/09/242121 <Electronically signed by Dany Richardson MD> Cosigner Signature (if applicable): CC: Dr. Shayna Malhotra MD ~ Signed [facility] Work Phone: 1(815) 758-512805-06-2025 Discharge summary [facility] Medical Records Department [address] [place] [address] Emergency Department Summary 10/09/24 MR#: [id number] Acct: [id number] Name: VIDA NINA Rep #:[id number] : 1950 73 From: Dany Richardson MD PCP: Dr. Shayna Malhotra MD Status:[facility] ER Location: ED HPI History of Present Illness Chief Complaint: Lower Extremity Injury Narrative Narrative: 73-year-old female states that she had pins placed in her left foot approximately 15 years ago [place] after breaking her heel. She is currentlyin [facility]. She states for the last 2 weeks she has been having increasing foot pain. She states that on Tuesday, probably of the last week, she had x-raysobtained at the . She went and saw Dr. Shayna Malhotra on Tuesday, but he did not have thex-ray results. She states that she is having a lot of pain in her left heel that is worse with weightbearing and walking and palpation. She states that it feels as if she is having a baby out of her left heel. [facility] Medical History Obesity Anxiety Cancer Anxiety Diabetes [...] acetonide 0.1 % 1 applic topical Q12H WV N PRN Rash 09/20/21 Unknown History topical [...] D #0 grams 11/24/21 Unknown Rx powder ([facility]) quetiapine 100 mg tablet 300 [...] nonspecific foot pain. She was given 1 [place] for analgesia here, and x-rays were obtained of the left footin 3 views. On my independent interpretation of her x-rays, there are postsurgical changes including hardware,but no evidence of a periprosthetic fracture, no noted loosening of hardware. There are arthritic changes as well. I reviewed the radiology report which confirms my independent interpretation. Initially my plan was to discharge her back to [facility], however I was approached by the [...] 72.1 H Lymph % (Auto) 16.3 L Calvert % (Auto) 8.3 Eos % (Auto) 2.5 [...] Clarity Cloudy Urine pH 5.0 Ur Specific [place] 1.020 Urine Protein 30 H Urine Glucose [...] tract infection) Disposition Disposition: Acute Care Hospital [facility] What to do if you have Problems For any increased pain, shortness of breath, bleeding, nausea or vomiting, chestpain, or any unexpected problems, contact your Primary Care Provider. Call [facility] ([phone]) or report tothe closest Emergency Room. Call 911 if necessary. 10/09/242121 Cosigner Signature (if applicable): CC: Dr. Shayna Malohtra MD ~ Signed [facility]05-06-2025 Radiology Diagnostic study note [facility] Imaging Services [address] [place] [address] Foot min 3 Views MR#: [id number] Acct: [id number] Name: VIDA NINA Rep #: [id number] : 1950 F 73 From: Katarina Jiménez MD PCP: Dr. Shayna Malhotra MD Status: REG ER Study:Foot min 3 Views Date of Exam: 11/28 Exam# [id number] Ordering Dr: Dany Richardson MD EXAM: LEFT [...] Richardson MD; Dr. Shayna Malhotra MD ~ Fine Arts Chair: Signed [facility]01-29-2025 Evaluation note* Diagnosis Onset Date Resolution [...] 2) chronic October 09, 2024 9: 56pm [facility] Work Phone: 1(541) 258-298804-29-2022 NoteHNO ID: [id number] Author: Jennifer Cuevas MD Service: ? Author Type: Physician Type: Progress Notes Filed: 12/01/2021 8:04 AM Note Text: Gynecologic Oncology [facility] Follow up visit Date of service: 10/02/2021 PROBLEM/CC: Vida Nina presents for a post-op visit. SURGICAL PATHOLOGY [[id number]] Collected: 09/07/21 1104 Order Status: Completed Specimen: Tissue from UTERUS, CERVIX, BILATERAL FALLOPIAN TUBES AND BILATERAL OVARIES Updated: 09/11/21 1319 Case Report -- Surgical Pathology Report ? Case: [id number] ? Authorizing Provider: ?Jennifer Cuevas MD ? [...] A11 and A16 were reviewed at the [facility] gynecologic pathology consensus conference via telepathology on 09/09/20[address] Lupe Younger and Andra Franco agree with the diagnosis of acute salpingitis. ? Laboratory Developed Test (LDT) Disclaimer: Performance characteristics of immunohistochemical, immunofluorescent and chromogenic in-situ hybridization tests have been determined by the performing laboratory within [facility]?s [facility] Pathology and Laboratory Medicine [place] ([facility], [facility], [facility] or [facility]) in a manner consistent with CLIA [...] - 10/02/2021 1:00 PM EDT Gynecologic Oncology [facility] Follow up visit Date of service: 10/02/2021 PROBLEM/CC: Vida Nina presents for a post-op visit. SURGICAL PATHOLOGY [[id number]] Collected: 09/07/21 1104 Order Status: Completed Specimen: Tissue from UTERUS, CERVIX, BILATERAL FALLOPIAN TUBES AND BILATERAL OVARIES Updated: 09/11/21 1319 Case Report -- Surgical Pathology Report Case: [id number] Authorizing Provider: Jennifer Cuevas MD Collected: 09/07/2021 11:04 AM Ordering Location: [facility] OR Received: 09/07/2021 11:12 AM Pathologist: [...] A11 and A16 were reviewed at the [facility] gynecologic pathology consensus conference via telepathology on 09/09/20[address] Lupe Younger and Andra Franco agree with the diagnosis of acute salpingitis. Laboratory Developed Test (LDT) Disclaimer: Performance characteristics of immunohistochemical, immunofluorescent and chromogenic in-situ hybridization tests have been determined by the performing laboratory within [facility] s [facility] Pathology and Laboratory Medicine [place] ([facility], [facility], [facility] or [facility]) in a manner consistent with CLIA [...] fibrous ovarian parenchyma with no lesions identified. Research Chemist sections are submitted as follows: A1-anterior cervix [...] A 17-right ovary Gross examination performed at [facility], [address] [place] [address] CLIA#[id number] OLS September 08, 2021 10:33 AM Intraoperative [...] many years since she has seen a mechanical design drafter, maybe > 10 years. Reports normal pap [...] Her incisions have healed well. Abdomen non-tender. Dielectric Embossing Machine Operator for exam: Sherrie RESULTS: 07/26/21: ULTRASOUND The [...] without Cont on 08-07-2021 Abdomen/Pelvis without Cont [facility] Imaging Services [address] [place] [address] Abdomen/Pelvis without Cont MR#: [id number] Acct: [id number] Name: VIDA NINA Rep #: [id number] : 1950 F 70 From: Power Lopez MD PCP: Dr. Shayna Malhotra MD Status: REG CLI Study: Abdomen/Pelvis without Cont Date of Exam: 09/25 Exam# [id number] Ordering Dr: Saad Villagomez MD STUDY: CT [...] Paper guidelines (Godoy-Parrish, et al. JACR 2017; 14(8):6400-5367) suggest no imaging follow-up is necessary. ACR White Paper guidelines (Godoy-Parrish, et al. JACR 2017; 14(8):7897-4641) suggest no imaging follow-up is necessary. Consider [...] diagnosis with patient and caregiver (Arianna from [facility]). Discussed recommendations for treatment including TLH-BSO, [...] deemed medically necessary. Reviewed prior records from [facility] and Dr. Villagomez (medical oncologist) office. Requested images from CT A/P and ultrasound to be uploaded for review. Noted elevated CA 125. Plan to proceed with surgery in September. Will need preoperative anesthesia appointment. Contact information for Jose Rafael Resendiz: nurse line [phone]; front end software engineer [phone]. Documentation from my notes of previous visit [...] arrange referral to radiation treatment center in [place], [place] five minutes from where she lives. [...] Past Histories independently gathered by the clinical technician support association and the remaining scribed note accurately describes my personal service to the patient. documented in this encounterLouis [facility] Nurse Note* Moriah Aldridge RN - 10/02/2021 12:50 PM EDT Patient arrived amb A&Ox4 in [facility] for post op visit. Patient admits to pain in abd and lower back resolved since surgery. Pt denies any new concerns, today. Pt here with Marguerite, friend. Enc and support provided. Moriah Aldridge RN documented in this encounterLouis [facility]04-18-2022 Miscellaneous Notes* Telephone Encounter - Jeffrey Ferris - 09/21/2021 12:10 PM EDT Spoke to Nurse Bernadine from [facility] stated that the patient is in the hospital and she will call when the patient comes out. So 09/22/21 appt in this office with Dr. Cuevas has been cancelled. Jeffrey Ferris 09/21/21 documented in this encounterLouis [facility]04-07-2022 Miscellaneous Notes* Telephone Encounter - Taniya Balderas APRN.MICHELLE - 09/10/2021 8:25 AM EDT Called [facility] left message on nurse line to [...] to. meds that are susceptible are iv. skilled nursing can recheck urine if still + then would need to get ID involved verbal instructions per Dr julieth Balderas APRN.CHILD ADVOCATE documented in this encounterLouis Stokes [facility]04-06-2022 Miscellaneous Notes* Telephone Encounter - Summer Turcios RN - 09/09/2021 2:50 PM EDT Franklin from [facility] returned call to this RN. Reviewed [...] confidential e-mail) Attempted to call Franklin at [facility] to review above message, no answer. Left message on voicemailto return call. Summer Turcios RN * Telephone Encounter - Summer Turcios RN - 09/09/2021 1:58 PM EDT Franklin, nursing education specialist at [facility] called stated, "one of patient's lap [...] e-mail). Summer Turcios RN documented in this encounterLouis [facility]04-05-2022 NoteHNO ID: [id number] Author: Sam Naidu DO Service: Gynecology Oncology [...] Date 09/07/21 07 - 09/08/21 0659 Shift 7251-5110 1000-3798 8753-7562 24 Hour Total PO 360 360 PO 360 360 IV 2702 879 7815 Volume (mL) (ceFAZolin 3 g in D5W 100 mL (ANCEF)) 100 100 Volume (mL) (NaCl 0.9% iv infusion) 500 500 Volume (mL) (lactated ringers iv infusion) 1300 1300 Volume (mL) (lactated ringers iv infusion) 300 300 Shift Total 2326 294 2141 Urine 1000 1000 Void (ml) 1000 1000 [...] 154 VTE RISK CATEGORY: SURGICAL HIGH RISK (WV,WV) Active VTE Medication Orders: Anticoagulant AND Antiplatelet Medications (From admission, onward) Start Dose Route Frequency Last Action Ordered Stop 09/08/21 0900 enoxaparin 40 mg injection (LOVENOX) (Surgical Risk Categories) 40 mg SUBCUTANEOUS EVERY 24 HOURS Ordered 09/07/211541 -- Active VTE Prophylaxis Orders: 09/07/21 1545 PNEUMATIC COMPRESSION STOCKINGS ([place],WV) 09/07/21 154 ACTIVITY - MOBILIZE PATIENT ([place], [place]) VTE Prophylaxis: VTE prophylaxis appropriate Assessment/Plan Vida Nina is a 70 year old year old female POD#1 s/p EUA, TLH-BSO for endometrial cancer #Postoperative care - VSSAF - VTE (more content not included)...[facility]04-04-2022 Note HNO ID: [id number] Author: Hieu Raymond APRN.MAINTENANCE PARTS TECHNICIAN Service: Anesthesiology Author Type: Nurse Produce Runner Type: Anesthesia Procedure Notes Filed: 09/07/2021 9:28 AM Note Text: ANESTHESIOLOGY PROCEDURE NOTE Airway General Information Procedure Start Time/Medication Administration: 09/07/2021 8:29 AM Patient location during procedure: OR Timeout Performed Pre-procedure: timeout performed Consent Obtained: Yes Patient identity confirmed: arm band Staffing MAINTENANCE PARTS TECHNICIAN: Hieu Raymond APRN.MAINTENANCE PARTS TECHNICIAN Performed by: ANURAG Indications and Patient Condition Preoxygenated: yes Patient position: sniffing, ramp and reverse Trendelenburg Manual In-Line Stabilization: No Difficult Mask: No Indications for airway management: anesthesia anesthesia circuit Method: modified rapid sequence Cricoid Pressure: Yes Airway Accessory: oral airway Final Airway Details Final airway type: endotracheal airway Final Endotracheal Airway: ETT Cuffed: yes Successful intubation technique: video laryngoscopy Devices used: NoteSick Endotracheal tube insertion site: oral Blade: Osman [...] Unrecognized esophageal intubation: no Difficult airway SIGNATURE: Heiu Raymond APRN.MAINTENANCE PARTS TECHNICIAN PATIENT NAME: Vida Nina DATE: September 07, 2021 TIME: 9:25 AM [facility]: [id number] Inst[facility] * Patient Instructions* Naila Barrientos APRN.CHILD ADVOCATE - 09/01/2021 3:11 PM EDT PATIENT PREOPERATIVE INSTRUCTIONS Your surgeon has scheduled for your procedure at this surgery center: Dr. Cuevas has scheduled you for your procedure at this surgery center [facility]: [phone], [address], [place] [address] Enter the hospital through the main entrance and proceed directly to the Surgery Welcome Center. Asyou enter the Surgery Welcome Center and sign in with the receptionist airline lounge, we may ask for your photo ID [...] If you are having surgery at the [facility] and [facility], please bring your glucometer Pain Medications: You [...] surgery. - YOU MUST HAVE A RESPONSIBLE MEDICARE COMPLIANCE AUDITOR TAKE YOU HOME. A ELECTRIC LIFT TRUCK DRIVER, CAB OR UBER MEDICARE COMPLIANCE AUDITOR CANNOT BE [place] RESPONSIBLE MEDICARE COMPLIANCE AUDITOR. - We recommend that a responsible person [...] COVID-19 positive. If visitors do not follow [facility] masking guidelines, caregivers can [facility] and restrict [facility] visitation privileges. For support, contact Elizabeth at [phone] or [email or web address]. The visitor will be allowed to [...] and will then instruct the visitor for machine operator hop picker directions Visitors who have tested positive [...] A Guide [employer]iques ([place];[employer]: Fourth Edition) 2011 Naila Barrientos APRN.CNP 09/01/21 documented in this encounterLouis [facility] History and physical note * [...] with Dr. Cuevas. Surgery will be at [facility] OR Scheduled as an TBA Have you been in contact with someone with known coronavirus/Covid 19? no Have you had surgery or pre testing at [facility] in the past 3 years? no [...] > 1 time per night or hematuria. 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 [...] or any previous visit (from the past 73077 hour(s)). Assessment No problem-specific Assessment & Plan [...] slightly elevated. Treated with oral medications. 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 Patient given verbal and written preop instructions and voices comprehension and compliance. SIGNATURE: Naila Barrientos APRN.CNP PATIENT NAME: Vida Nina DATE: September 01, 2021 TIME: 2:53 PM PAGER/CONTACT #: documented in this encounterLouis [facility]22 NoteHNO ID: [id number] Author: Jennifer Cuevas MD Service: ? Author Type: Physician Type: Progress Notes Filed: 08/26/2021 1:21 PM Note Text: Gynecologic Oncology [facility] [place] General Consult Date of service: 08/21/2021 PCP: [...] many years since she has seen a mechanical design drafter, maybe > 10 years. 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 Minesweeping Officer History ? 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 Age at Menarche: ? Age at First : ? Age at Menopause: ? Minesweeping Officer History Comments: ? Sexual Activity: Not Asked; [...] content not included)...[facility] NoteHNO ID: [id number] Author: Krunal Erazo MD Service: ? Author [...] many years since she has seen a mechanical design drafter, maybe > 10 years. 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 Minesweeping Officer History LMP: Postmenopausal Age at Menarche: Age at First : Age at Menopause: Minesweeping Officer History Comments: Sexual Activity: Not Asked; No [...] external genitalia atrophic, normal Bartholin's glands, urethra, Canadian's glands, no vulvar lesions, no cervical lesions, good vaginal support, normal appearing perineal body and perianal region, scant (more content not included)...[facility] Diagnosis Pre-op testing- Primary Preoperative examination, unspecified Endometrial cancer (HCC) Malignant neoplasm of corpus uteri, except isthmus Mixed hyperlipidemia 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, with long-term current use of insulin (HCC) Primary hypertension Unspecified essential hypertension Endometrial cancer (HCC) Malignant neoplasm of corpus uteri, except isthmus documented in this encounter [facility] note* Diagnosis Onset Date Resolution Status Uterine mass acute Endometrial adenocarcinoma a cute Debility acute Pulmonary embolism acute [facility] Work Phone: Evaluation note* Diagnosis Onset Date Resolution Status Uterine mass acute Endometrial adenocarcinoma a cute Debility acute Pulmonary embolism acute Debility acute Elevated troponin I level ac mark Lactic acidosis acute DM2 (diabetes mellitus, type 2) chronic [facility] Work Phone: Evaluation note* Diagnosis Endometrial cancer (HCC)- Primary Malignant neoplasm of corpus uteri, except isthmus documented in this encounter [facility] note* Diagnosis Onset Date Resolution Status Debility acute Pulmonary embolism acute Debility acute DM2 (diabetes mellitus, type 2) chronic Elevated troponin I level re solved Lactic acidosis resolved [facility] Work Phone: Evaluation noteNo assessment information available [facility] Work Phone: Evaluation note* Diagnosis Onset Date Resolution Status Debility acute Endometrial adenocarcinoma a cute Former smoker acute History of seizures acute Pulmonary embolism acute Vitamin D deficiency acute Bipolar disorder chronic DM2 (diabetes mellitus, type 2) chronic Type 1 diabetes mellitus chr onic [facility] Work Phone: Evaluation note* Diagnosis Onset Date Resolution Status Debility acute Vitamin D deficiency acute Bipolar disorder chronic Depression chronic DM2 (diabetes mellitus, type 2) chronic [facility] Work Phone: [facility] Work Phone: [facility] instructionsW[facility] Work Phone: Hospital Discharge instructions Additional Instructions [...] care physician for further outpatient evaluation and management.[facility] Work Phone: Reason for referral (narrative)No reason for referral information availableWOhioHealth Southeastern Medical Center Work Phone: Summary Purpose Family History No [...] FoundDocuments on File Type Date Recorded Patient Research Chemist Expl anation Advance Directive(s) 09/07/2021 6:14 AM Advance Directive Response Recorded Date/ Time Living Will No September 20, 2021 7:30am Power of Manager Heavy Duty No September 20 7:30am Advance Directive Response Recorded Date/ Time Living Will No September 20, 2021 12:38pm Power of Manager Heavy Duty No September 20 12:38pm Advance Directive Response Recorded Date/ Time Name of Medical Power of Manager Heavy Duty TODD November 22, 2021 1:03pm Living Will Yes November 22, 2021 1:03pm Power of Manager Heavy Duty Yes November 22 1:03pm Advance Directive Response Recorded Date/ Time Name of Medical Power of Manager Heavy Duty Todd Nina November 22, 2021 5:55pm Living Will No November 22, 2021 5:55pm Power of Manager Heavy Duty Yes November 22 5:55pm Advance Directive Response Recorded Date/ Time Living Will No April 13 10:27am Power of Manager Heavy Duty Yes April 13, 2022 10:27am Advance Directive Response Recorded Date/ Time Living Will No April 13 11:27am Power of Manager Heavy Duty Yes April 13, 2022 11:27am Advance Directive Response Recorded Date/ Time Living Will No January 09, 2023 5:18pm Power of Manager Heavy Duty No January 09 5:18pm Advance Directive Response Recorded Date/ Time Living Will No January 09, 2023 4:18pm Power of Manager Heavy Duty No January 09 4:18pm Advance Directive Response Recorded Date/ Time Do you have a Healthcare Power of Manager Heavy Duty? Yes October 09, 2024 5:45pm Advance Directive Response Recorded Date/ Time Do you have a Healthcare Power of Manager Heavy Duty? No October 09, 2024 11:07pm Health Concerns [...] LABWORK RETIREMENT LABWORK DEBILITY/KAYLA DEBILITY/KAYLA DEBILITY/KAYLA DEBILITY/KAYLA Reason for [...] Date LABOWRK November 26, 2024 5:00 am RETIREMENT LAB WORK December 04, 2024 4:0 0am LABOWRK January 21, 2025 5: 00am Additional Source Comments INFORMATION SOURCE (unrecogn ized section and content) DATE CREATED AUTHOR 08/31/2021 [facility] DATE CREATED AUTHOR AUTHOR'S ORGANIZ ATION 12/01/2021 [facility] DATE CREATED AUTHOR AUTHOR'S ORGANIZ ATION 04/17/2025 [facility] Source Comments (unrecognize d section and content) In the event this informatio n is protected by the Federal Confidentiality of Alcohol and Drug Abuse Patient Records regulations: The Federal rules restrict any use of the information to criminally investigate or prosecute any alcohol or drug abuse patient.[facility] the event this information is protected by the Federal Confidentiality of Alcohol and Drug Abuse Patient Records regulations: The Federal rules restrict any use of the information to criminally investigate or prosecute any alcohol or drug abuse patient.[facility] CenterIn the event this information is protected by the Federal Confidentiality of Alcohol and Drug Abuse Patient Records regulations: The Federal rules restrict any use of the information to criminally investigate or prosecute any alcohol or drug abuse patient.[facility] CenterIn the event this information is protected by the Federal Confidentiality of Alcohol and Drug Abuse Patient Records regulations: The Federal rules restrict any use of the information to criminally investigate or prosecute any alcohol or drug abuse patient.[facility] CenterIn the event this information is protected by the Federal Confidentiality of Alcohol and Drug Abuse Patient Records regulations: The Federal rules restrict any use of the information to criminally investigate or prosecute any alcohol or drug abuse patient.[facility] Reason for Visit (unrecogniz ed [...] Shayna Malhotra MD Primary Care Provider Active [facility] Attending Provider Acti ve Team [...] Status: Inactive Member Role Status Dates Dr. Shanya Malhotra MD Primary Care Provider Active Start: [...] Inactive Member Role Status Dates Dr. Shayna Malhorta MD Primary Care Provider Active Start: October [...] BE BASED ON THE PRIMARY CLINICAL RECORDS. [employer] provides no warranty or guarantee of the accuracy or completeness of information in this document.
[2025-05-20 07:55] LABS: Anion Gap 11 (5-15); BUN 34 mg/dL (4-19); BUN/Creat Ratio 22.3 RATIO (10-20); Calcium,Total 9.7 mg/dL (7.6-11.0); Carbon Dioxide 27.4 mmol/L (21.0-32.0); Chloride 96 mmol/L (98-108); Glucose 253 mg/dL (70-99); Magnesium 2.3 mg/dL (1.5-2.2); Potassium 4.7 mmol/L (3.3-5.1)
== END ==
LOC: OLS.SWAL 05:00
PROVIDERS: PCP Internal Medicine; Visit Provider Internal Medicine
DX: I10 Essential (primary) hypertension (principal); E11.9 Type 2 diabetes mellitus without complications
CPT/HCPCS: 36415; 80048; 83735

== ENCOUNTER 2025-05-21 16:00 | Emergency (ER) | payer MEDICARE, MEDICAID, SELFPAY ==
[2025-05-21 16:01] VITALS: BP 146/63; PULSE 96; RESP 18; TEMP 36.6; O2SAT 99; BMI 52.4
--- NOTE | 2025-05-21 16:16 | EDS_ITS ---
HPI History of Present Illness Chief Complaint: Abn Labs [facility] Medical History (Updated 05/21/25 @ 18:[address] Kendell Do, DO) Obesity Anxiety Cancer Anxiety Diabetes Former smoker Hypertension DVT (deep venous thrombosis) Bipolar 1 disorder Hyperlipidemia Vitamin D deficiency History of seizures history of broken heel left foot History of recurrent UTIs Home Medications ?Medication ?Instructions ?Recorded ?Last Taken ?Type acetaminophen 325 mg tablet 650 mg PO Q4H PRN Pain, fe julienne 07/30/21 05/21/25 08:15 History (Tylenol) ergocalciferol (vitamin D2) 1,250 50,000 unit PO FR saldivar uplement 09/20/21 05/17/25 09:00 History mcg (50,000 unit) capsule triamcinolone acetonide 0.1 % 1 applic topical QHS Manuelito h 09/20/21 05/20/25 21:50 History topical cream lamotrigine 100 mg tablet 100 mg PO BID seizures 11/2205/21/25 08:40 History blood sugar diagnostic (FreeStyle 11/23/21 Unknown Hi story Lite Strips) blood-glucose meter (FreeStyle 11/23/21 Unknown Histo ry Lite Meter kit) lancets 28 gauge (FreeStyle 11/23/21 Unknown History Lancets) atorvastatin 40 mg tablet 40 mg PO QHS hyperlipidemia 11/24/22 05/20/25 21:50 History clonazepam 0.5 mg tablet 0.5 mg PO Q12H anxiety 10/0905/21/25 08:40 History insulin glargine 100 unit/mL (3 34 unit subcut QHS say betes 10/09/24 05/20/25 21:50 History mL) subcutaneous pen (Lantus Solostar U-100 Insulin) aspirin 81 mg tablet,delayed 81 mg PO DAILY pulmonary embolism 05/21/25 05/21/25 08:40 History release (Adult Low Dose Aspirin) dextrose 40 % oral gel (Glucose 10 g PO Q15M PRN hypog lycemia 05/21/25 Unknown History Gel) furosemide 80 mg tablet (Lasix) 80 mg PO BID edema 05/21/25 12:00 History insulin glargine 100 unit/mL 42 unit subcut DAILY diab etes 05/21/25 05/21/25 08:40 History subcutaneous solution (Lantus U-100 Insulin) insulin lispro 100 unit/mL 1 sliding scale dose subcut TIDCM 05/21/25 05/21/25 08:40 History subcutaneous solution type 2 dabetes lisinopril 10 mg tablet 10 mg PO DAILY hypertension 05/21/25 05/21/25 08:40 History melatonin 3 mg tablet 3 mg PO QHS insomnia 5 05/20/25 21:50 History metolazone 2.5 mg tablet 2.5 mg PO DAILY edema 05/21/25 08:40 History multivitamin-ferrous 1 tab PO DAILY 05/21/2505/06 08:40 History fumarate-folic acid 18 mg-400 mcg tablet (Tab-A-Sanjana Multivitamin w-iron) nystatin 100,000 unit/gram topical 1 applic topical BI D 05/21/25 Unknown History powder ([facility]) ondansetron HCl 4 mg tablet 4 mg PO Q6H PRN nausea and vomiting 05/21/25 Unknown History oxcarbazepine 150 mg tablet 150 mg PO BID bipolar diso rder 05/21/25 05/21/25 08:45 History quetiapine 200 mg tablet (Seroquel) 200 mg PO BID bipo lar disorder 05/21/25 05/21/25 08:45 History quetiapine 25 mg tablet (Seroquel) 75 mg PO BID bipola r disorder 05/21/25 05/21/25 08:45 History sertraline 50 mg tablet 75 mg PO QHS depression/anxi ety 05/21/25 05/13/25 21:05 History Allergy/AdvReac Type Severity Reaction Status Date / Time ciprofloxacin (From Cipro) Allergy Mild Anaphylaxis Verified 05/21/25 16:06 ciprofloxacin HCl (From Allergy Anaphylaxis Verified 05/21/25 16:06 Cipro) Iodinated Contrast Media Allergy Rash Verified 05/21/25 16:06 (Iodinated Contrast Media - IV Dye) paliperidone (From Invega) Allergy Rash Verified 05/21/25 16:06 Penicillins Allergy RASH AND Verified 05/21/25 16:06 ITCHING red (food color) Allergy Hives Verified 05/21/25 16:06 red dye Allergy Hives Verified 05/21/25 16:06 Sulfa (Sulfonamide Allergy RASH AND Verified 05/21/25 16:06 Antibiotics) ITCHING metformin AdvReac Nausea/Vom/ Verified 05/21/25 16:06 Diarrhea shellfish derived AdvReac Nausea/Vom/ Verified 05/21/25 16:06 Diarrhea Family History Mother Diabetes Hypertension Heart disease Thyroid disorder Father CVA (cerebral vascular accident) Diabetes Brother Parkinson disease Thyroid disorder Lupus Alcoholism Blood clots in brain Grandfather Heart disease Asthma Social History Smoking Status: Former smoker Tobacco: How many years used: 45 how long ago did patient quit smokin11/2016 substance use type: does not use what type of physical activity do you participate in: none EXAM Physical Exam Const Vital Signs: 05/21/25 16:01 Temperature 97.8 F Temperature Source Oral Pulse Rate 96 Respiratory Rate 18 Blood Pressure 146/63 H Blood Pressure Mean 90 Pulse Ox 99 Oxygen Delivery Method Room Air MDM MDM MDM Narrative Medical decision making narrative: HISTORY OF PRESENT ILLNESS: Chief complaint: Abnormal lab 74-year-old female history of diabetes, obesity, former smoker, bipolar disorder presents with concern for abnormal labs. Per EMS patient arrives from [facility] with concern for decreased kidney function. There is reported history of kidney failure. The patient states she has been feeling her usual state of health. She denies fatigue, confusion. Denies decreased urination. Denies vomiting or diarrhea or other volume loss. No she is eating and drinking normally. She notes she was told by her longterm that she is in kidney failure need to be evaluated the emergency department immediately. REVIEW OF SYSTEMS: Pertinent positives: Abnormal lab Pertinent negatives: As per HPI PHYSICAL EXAM: Nursing triage notes reviewed, Vital signs reviewed Constitutional: please see mdm HENT: MMM Eyes: Pupils equal round and reactive to light, Extraocular muscles intact Neck: No stridor, no JVD, full neck ROM Lungs: Clear to auscultation, No wheezing or rales. No increased work of breathing, no conversational dyspnea, no accessory muscle use, no nasal flaring. No respiratory distress noted Heart: Regular rate and rhythm, No murmurs, No rubs and No gallops, 2+ distal pulses (radial, femoral, posterior tibial) in all extremities Abdomen: Soft, there is no tenderness, rigidity, rebound or guarding, no obvious peritoneal signs, no palpable pulsatile abdominal masses, no auscultated abdominal bruit : No CVAT Extremities: No edema Neuro: No new focal neurological deficits, cranial nerves II through XII intact, 5/5 strength in all present extremities. Intact sensation to light touch in all present extremities, 2+ reflexes bilateral patella tendons. Skin: No rash or lesions noted MEDICAL DECISION MAKING: Chief Complaint: please see HPI External records reviewed: Reviewed serum creatinine from 05/20/2025 which shows creatinine 1.53, GFR of 36. These are essentially baseline from prior studies. Factors affecting care: As per [facility] Social determinants of health: Jose Rafael Resendiz resident History obtained from others: EMS Consults: none [facility] Narrative: The patient was initially hemodynamically stable, afebrile and nontoxic- appearing. Exam without significant abnormalities. Abdomen soft nontender I considered the following differential diagnosis: Lab abnormality I obtained lab to further determine if the patient was suffering from a life- threatening etiology. Gave 500 cc bolus for initial resuscitation given report of decreased kidney function. ALL IMAGES (IF OBTAINED) HAVE BEEN PERSONALLY REVIEWED AND INTERPRETED BY MYSELF. CBC without leukocytosis to suggest relation, no severe anemia, no cytopenia BMP with mild hyponatremia, no sign of metabolic acidosis or endorgan hypoperfusion within normal bicarb and anion gap, there is CKD however this is similar to her BMP from 2 weeks ago. With no significant changes. It is likely her new baseline. Urinalysis shows no evidence of urinary inflammation suggestive of UTI The patient's renal function was essentially baseline. She has no symptomatology of volume such as vomiting or diarrhea. She is eating and drinking normally. This can be followed up at her longterm with repeat lab testing regularly as well as increase fluid intake. Discussed holding nephrotoxic agents such as diuretics (Lasix, metolazone, lisinopril). The patient and/or family, caregivers express understanding. The patient and/or family, caregivers agrees with the plan. Shared decision making: I will have a discussion with the patient and or visitors regarding risk/ benefits of further testing or admission. They will be made aware of of the risk/benefits inherent in this decision they will be given the opportunity to voice understanding. Total critical care time today provided was at least 0 minutes. This excludes separately billable procedures. Critical care time (if documented) is secondary to the patient having high probability of clinically significant/life threatening deterioration in the patient's condition which required my urgent intervention. Impression: 1. CKD 2. Evaluation for laboratory abnormality Dispo: Discharge home This note was generated with [employer] dictation software. It may contain incorrect words, spelling, and punctuation that were not noted in review of the chart prior to signing. Lab Data Labs: Laboratory Results - last 24 hr 05/21/25 05/21/25 16:30 16:50 WBC 4.9 RBC 4.10 L Hgb 12.3 Hct 36.2 L MCV 88.3 MCH 30.0 MCHC 34.0 RDW Std Deviation 45.5 H RDW Coeff of [place] 14.1 Plt Count 115 L MPV 10.5 Immature Gran % (Auto) 0.400 Neut % (Auto) 55.3 Lymph % (Auto) 29.7 [place] % (Auto) 10.3 H Eos % (Auto) 3.5 Baso % (Auto) 0.8 Absolute Neuts (auto) 2.7 Absolute Lymphs (auto) 1.44 Nucleated RBC % 0 Sodium 132 L Potassium 4.2 Chloride 92 L Carbon Dioxide 26.4 Anion Gap 14 BUN 38 H Creatinine 1.73 H Estim Creat Clear Calc 42.38 L Est GFR (MDRD) Non-Af 31 L BUN/Creatinine Ratio 21.8 H Glucose 231 H Calcium 9.9 Urine Color Straw Urine Clarity Clear Urine pH 7.0 Ur Specific [place] 1.010 Urine Protein Negative Urine Glucose (UA) Normal Urine Ketones Negative Urine Occult Blood Negative Urine Nitrite Negative Urine Bilirubin Negative Urine Urobilinogen Normal Ur Leukocyte Esterase 25 H Urine RBC 0 SEEN Urine WBC 5-10 SEEN Ur Squamous Epith Cells 5-10 SEEN Urine Bacteria 1+ Urine Mucus 0 SEEN Discharge Plan Triage Chief Complaint: Abn Labs ED Provider: Kendell Do Dx/Rx/DC Orders Clinical Impression: CKD (chronic kidney disease) Instructions: CKD Dc Prescriptions: No Action acetaminophen [Tylenol] 325 mg tablet 650 mg PO Q4H PRN (Reason: Pain, fever) atorvastatin 40 mg tablet 40 mg PO QHS ergocalciferol (vitamin D2) 1,250 mcg (50,000 unit) Capsule 50,000 unit PO FR triamcinolone acetonide 0.1 % Cream 1 applic TOPICAL QHS Rx Instructions: lower leg lamotrigine 100 MG tablet 100 mg PO BID (DME) FreeStyle Lite Strips Strip See Rx Instructions MISCELLANEOUS Rx Instructions: check blood glucose daily for type 2 DM (DME) blood-glucose meter [FreeStyle Lite Meter] Kit See Rx Instructions MISCELLANEOUS Rx Instructions: As directed, check blood glucose daily for type 2 DM (DME) lancets [FreeStyle Lancets] 28 gauge misc See Rx Instructions MISCELLANEOUS Rx Instructions: check blood glucose daily for type 2 DM clonazepam 0.5 mg tablet 0.5 mg PO Q12H insulin glargine [Lantus Solostar U-100 Insulin] 100 unit/mL (3 mL) insulin pen 34 unit subcut QHS furosemide [Lasix] 80 mg tablet 80 mg PO BID quetiapine [Seroquel] 25 mg tablet 75 mg PO BID Rx Instructions: give along with 200mg tablet quetiapine [Seroquel] 200 mg tablet 200 mg PO BID Rx Instructions: give with 25 mg tablets oxcarbazepine 150 mg tablet 150 mg PO BID insulin lispro 100 unit/mL solution 1 sliding scale dose subcut TIDCM Protocol: 6. Sliding Scale Insulin Custom Condition: 150-200 Dose/Route: 2u Condition: 201-250 Dose/Route: 3u Condition: 251-300 Dose/Route: 4u Condition: 301-350 Dose/Route: 5u Condition: 351-400 Dose/Route: 6u Condition: 401-450 Dose/Route: 7u Condition: >451 Dose/Route: call MD Protocol Text: Custom Sliding Scale Patient Comments: [NO ORIGINAL SIG] insulin glargine [Lantus U-100 Insulin] 100 unit/mL solution 42 unit subcut DAILY metolazone 2.5 mg tablet 2.5 mg PO DAILY Rx Instructions: for 2 weeks. end 06/01/25 lisinopril 10 mg tablet 10 mg PO DAILY Tab-A-Sanjana Multivitamin w-iron 18-400 mg-mcg tablet 1 tab PO DAILY aspirin [Adult Low Dose Aspirin] 81 mg tablet,delayed release (DR/EC) 81 mg PO DAILY melatonin 3 mg tablet 3 mg PO QHS sertraline 50 mg tablet 75 mg PO QHS dextrose [Glucose Gel] 40 % gel 10 g PO Q15M PRN (Reason: hypoglycemia) Rx Instructions: if blood sugar less than 70 and able to swallow give until symptoms of low blood sugar are controlled ondansetron HCl 4 mg tablet 4 mg PO Q6H PRN (Reason: nausea and vomiting) nystatin [Nyamy] 100,000 unit/gram Powder 1 applic topical BID Primary Care Provider: Malathi Tomas Referrals: Karina Lee DO [Med Staff - Consulting, Nephrology] Shayna Malhotra MD [Med Staff - Customer Support Engineer, Internal Medicine - [facility]] Activity Restrictions/Additional Instructions: Thank you for trusting us with your care today! Your labs essentially show your baseline kidney function over last several weeks. Is not significantly worse than it has been. There is no need for immediate treatment. I recommend increasing your fluid intake. Please hold nephrotoxic medicines such as diuretics (i.e. metolazone, Lasix) Please take Tylenol (2 pills, 650 mg) every 6 hours as needed for pain and fever control. Please return to the emergency department if your symptoms change or worsen. Please follow with Nephrology () and PCP for further outpatient evaluation and management. Print Language: Samoan Disposition Disposition: Home, Self Care
[2025-05-21 16:43] LABS: Mucous, Urine 0 SEEN /hpf (<or=2+); Red Blood Cells-Urine 0 SEEN /hpf (0-5)
[2025-05-21 16:51] LABS: Color, Urine Straw (Yellow); Glucose, Dipstick Normal (Normal); Ketone-Dipstick Negative (Negative); Leukocyte Esterase-Dipstick 25 /ul (Negative); Nitrite-Dipstick Negative (Negative); Occult Blood-Urine Negative /ul (Negative); Protein-Dipstick Negative (Negative); Specific Gravity, Urine 1.010 (1.002-1.030); Urine Bilirubin Dipstick Negative (Negative)
[2025-05-21 17:04] LABS: Hematocrit 36.2 % (37-47); Hemoglobin 12.3 g/dL (12.0-15.0); Immature Granulocytes Count 0.020 X10^3/uL (0.0-0.0); Mean Corp Hgb Conc 34.0 g/dL (32-36); Mean Corpuscular Volume 88.3 fL (81-99); Mean Platelet Vol. 10.5 fl (6.2-12.0); NRBC Flagged by Analyzer 0 % (0-5); Platelet Count 115 K/mm3 (150-450); RBC Distribution Width CV 14.1 % (11.6-14.6); RBC Distribution Width SD 45.5 fl (35.1-43.9); Red Blood Count 4.10 M/mm3 (4.2-5.4); White Blood Count 4.9 K/mm3 (4.4-11.0)
[2025-05-21 17:28] LABS: Anion Gap 14 (5-15); BUN 38 mg/dL (4-19); BUN/Creat Ratio 21.8 RATIO (10-20); Calcium,Total 9.9 mg/dL (7.6-11.0); Carbon Dioxide 26.4 mmol/L (21.0-32.0); Chloride 92 mmol/L (98-108); Estimated Creatinine Clearance 42.38 ml/min (50-250); Glucose 231 mg/dL (70-99); Potassium 4.2 mmol/L (3.3-5.1)
[2025-05-21 17:29] LABS: Squamous Epithelial Cells - UA 5-10 SEEN /hpf (5-10)
[2025-05-21] MEDS: 0.9% Normal Saline (500mL Bag) 500 ML 1000 ML IV (17:32)
[2025-05-21 18:00] VITALS: BP 142/68; PULSE 98; O2SAT 100
[2025-05-21 20:00] VITALS: BP 112/52; PULSE 94
--- NOTE | 2025-05-21 20:14 | ED.RN ---
Report called to the alf
[2025-05-21 20:15] VITALS: BP 112/52; PULSE 94; RESP 18; TEMP 36.6; O2SAT 100
== END 2025-05-21 20:17 | disposition home or self-care (01) ==
PROVIDERS: Emergency Provider Emergency Medicine; PCP Internal Medicine; Visit Provider Emergency Medicine
DX: I12.9 Hypertensive chronic kidney disease with stage 1 through stage 4 chronic kidney disease, or unspecified chronic kidney disease (principal); F31.9 Bipolar disorder, unspecified; E11.22 Type 2 diabetes mellitus with diabetic chronic kidney disease; Z79.4 Long term (current) use of insulin; R79.9 Abnormal finding of blood chemistry, unspecified; Z87.891 Personal history of nicotine dependence; E78.5 Hyperlipidemia, unspecified; N18.9 Chronic kidney disease, unspecified; F41.9 Anxiety disorder, unspecified; Z79.899 Other long term (current) drug therapy; Z79.82 Long term (current) use of aspirin
CPT/HCPCS: 80048; 81001; 85025; 96360; 96361; 99285; A4216

== ENCOUNTER → 2025-05-27 05:00 | Outpatient (REF) | payer MEDICARE, MEDICAID, SELFPAY ==
[2025-05-27 08:26] LABS: Magnesium 2.3 mg/dL (1.5-2.2)
[2025-05-27 08:30] LABS: Anion Gap 10 (5-15); BUN 35 mg/dL (4-19); BUN/Creat Ratio 28.2 RATIO (10-20); Calcium,Total 9.5 mg/dL (7.6-11.0); Carbon Dioxide 24.7 mmol/L (21.0-32.0); Chloride 101 mmol/L (98-108); Glucose 201 mg/dL (70-99); Potassium 4.9 mmol/L (3.3-5.1)
== END ==
LOC: OLS.SWAL 05:00
PROVIDERS: PCP Internal Medicine; Visit Provider Internal Medicine
DX: I10 Essential (primary) hypertension (principal); E78.5 Hyperlipidemia, unspecified
CPT/HCPCS: 36415; 80048; 83735

== ENCOUNTER → 2025-06-05 05:00 | Outpatient (REF) | payer MEDICARE, MEDICAID, SELFPAY ==
--- OUTSIDE RECORDS SUMMARY | 2025-06-05 04:14 | XMS RPT_ITS | CCD ---
Author Organization [facility] Care Team Providers Care Oracle Architect Name Role Phone Sena Cox NP Unavailable Johnny Richardson Unavailable Unavailable Unavailable Primary Care Provider Unavaillegacy [facility] e Dr. Shayna Malhotra Primary Care [...] Dr. Shayna Malhotra Primary Care Provider Dr. Sahyna Malhotra Attending Provider [phone] Shayna Malhotra Primary Care Provider Dr. [...] Allergy 08-12-19 06 Shortness of Breath, Anaphylaxis [facility] (20 sources) Contrast media; Translations: [red dye] Drug Allergy 02-10-20 16 [facility] (5 sources) Fish Drug Allergy 02-10-20 16 [facility] (20 sources) metFORMIN Drug Allergy 11-21-19 17 Diarrhea, GI Upset, Vomiting [facility] (20 sources) paliperidone Drug Allergy 11-21-19 [address] [facility] (14 sources) Penicillins Drug Allergy 07-15-19 06 [facility] (20 sources) Shellfish; Translations: [shellfish derived] Drug Intolerance 02-29-20 19 Diarrhea, Vomiting [facility] (15 sources) Sulfonamides (Antibiotic) Drug Allergy 07-15-19 06 [facility] (15 sources) Iodinated Contrast Media Drug Allergy 02-29-20 [address] [facility] (4 sources) Mold Extract Drug Allergy 09-08-[address] [facility] (20 sources) Ciprofloxacin; Translations: [ciprofloxacin HCl] Drug Allergy 08-12-19 22 Anaphylaxis [facility] (19 sources) red (food color); Translations: [red (food color)] Allergy to substance 09-21-19 Hives [facility] (1 source) Penicillins Drug Allergy 07-15-[address] [facility] (9 sources) Penicillins Allergy to substance 11-23-19 RASH AND ITCHING [facility] (9 sources) Sulfonamides (Antibiotic) Allergy to substance 11-23-19 RASH AND ITCHING [facility] (9 sources) Triiodobenzoic Acids Allergy to substance 11-23-19 Rash [facility] (1 source) Ciprofloxacin Drug Allergy 10-10-19 [facility] (1 source) metFORMIN Drug Allergy 10-10-19 [facility] (1 source) paliperidone Drug Allergy 10-10-19 [facility] (1 source) Penicillins Drug allergy (disorder) 10-10-19 [facility] (1 source) Sulfonamides (Antibiotic) Drug allergy (disorder) 10-10-19 [facility] (1 source) Iodinated Contrast Media Drug allergy (disorder) 10-10-19 [facility] Medications Current Medications Medication Drug Class(es) Dates Sig (Normalized) Sig (Original) acetaminophen 325 mg oral tablet (20 sources) Start: 09-07-2021 End: 09-21-2021 take 2 tablets by mouth every six hours acetaminophen (TYLENOL) 325 mg tablet Take 2 tablets by mouth every 6 hours for 14 days. 112 tablet 0 09/07/2021 09/21/2021 Active Start: 07-30-2021 take 1 tablet by [facility] every four hours as needed Acetaminophen (Tylenol) [...] D2 Compound Start: 09-20-2021 Start: 09-20-2021 take 76476 [IU] by m outh every other week Ergocalciferol (Vitamin D2) Active 60962 UNIT PO Q1September 19, 2021 11:00pm Take every 2 weeks on Mondays Start: 09-08-2017 End: 03-21-2020 Ergocalciferol (Vitamin D2) 50,000 unit capsule Discontinued 91069 U PO EVERY MONTH 10 September 08, [...] SOPN Use 18 units daily. INSULIN GLARGINE [id number] Sena Cox NP Comment on above: Inject [...] BLOOD (3 sources) Start: 10-26-2016 End: 01-26-2025 Adhesive.coTOUCH ULTRA BLUE STRP Check BG 4-5 times daily GLUCOSE BLOOD [id number] Sena Cox [employer] 3 ml insulin detemir 100 unt/ml pen [...] (3 sources) Start: 10-26-2016 ONETOUCH [facility]DR[facility] Use to check blood glucose up to 4 times daily. LANCETS [id number] Sena Cox [employer] mag hydrox/aluminum hyd/simeth (ANTACID SUSPENSION ORAL) (5 [...] Active Comment on above: twice daily. nystatin 235965 unt/ml oral suspension (17 sources) Polyene Antifungal [...] November 23, 2021 11:00pm polyethylene glycol 3350 39694 mg powder for oral solution (9 sources) Osmotic Laxative Start: 09-08-2021 End: 10-08-2021 polyethylene glycol 3350 (MIRALAX, GLYCOLAX) 17 gram packet Take 1 Packet by mouth once daily. Dissolve dose in 4 - 8 ounces of liquid and take as directed. 30 Packet 0 09/08/2021 10/08/2021 Comment on above: Take 1 Packet by [facility] once daily. Dissolve dose in 4 [...] shows localized disease. 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, [address] Urine Cultureon 04-03-2025 [facility] Presumptive E. coli [place] Count >100,000 Presumptive E. coli: REACTION Ampicillin [...] TMP SMX Islt TRANG <=20 S Normal [facility] Comment on above: Performed By: #### L 500.4050, L506.1000, L501.9985, L100.0100 #### [facility] [address] [place], [address] Basic Metabolic Profile (BMP )on 04-01-2025 BUN/CRE 23.4 RATIO High 10-20 [facility] Comment on above: Performed By: #### L 501.080 #### [facility] [address] [place], [address] Calcium [Mass/Vol] 9.4 mg/dL Normal 7.6-11.0 [facility] Comment on above: Performed By: #### L 501.080 #### [facility] [address] [place], [address] Chloride [Moles/Vol] 102 mmol/L Normal 98-108 [facility] Comment on above: Performed By: #### L 501.080 #### [facility] [address] [place], [address] CO2 [Moles/Vol] 25.7 mmol/L Normal 21.0-32.0 [facility] Comment on above: Performed By: #### L 501.080 #### [facility] [address] [place], [address] Creatinine [Mass/Vol] 1.04 mg/dL Normal 0.70-1.20 [facility] Comment on above: Performed By: #### L 501.080 #### [facility] [address] [place], [address] GAP 10 Normal 5-15 [facility] Comment on above: Performed By: #### L 501.080 #### [facility] [address] [place], [address] GFR/1.73 sq M.predicted among non-blacks MDRD (S/P/Bld) [Vol rate/Area] 57 mL/min/{1.73_m2} Low >60 [facility] Comment on above: Result Comment: mL/m in/1.73m2 CKD-EPI Creatinine Equation (2020) Performed By: #### L 501.080 #### [facility] [address] [place], [address] Glucose [Mass/Vol] 214 mg/dL High 70-99 [facility] Comment on above: Performed By: #### L 501.080 #### [facility] [address] [place], [address] Potassium [Moles/Vol] 4.5 mmol/L Normal 3.3-5.1 [facility] Comment on above: Performed By: #### L 501.080 #### [facility] [address] [place], [address] Sodium [Moles/Vol] 138 mmol/L Normal 133-145 [facility] Comment on above: Performed By: #### L 501.080 #### [facility] [address] [place], [address] Urea nitrogen [Mass/Vol] 24 mg/dL High 4-19 [facility] Comment on above: Performed By: #### L 501.080 #### [facility] [address] [place], [address] CBC-Complete Blood Cnt No Di ffon 04-01-2025 Erythrocyte distribution width (RBC) [Ratio] 14.6 % Normal 11.6-14.6 [facility] Comment on above: Performed By: #### L 501.080 #### [facility] [address] [place], [address] Hematocrit (Bld) [Volume fraction] 34.6 % Low 37-47 [facility] Comment on above: Performed By: #### L 501.080 #### [facility] [address] [place], [address] Hemoglobin (Bld) [Mass/Vol] 11.6 g/dL Low 12.0-15.0 [facility] Comment on above: Performed By: #### L 501.080 #### [facility] [address] [place], [address] MCH (RBC) [Entitic mass] 30.4 pg Normal 27.0-32.0 [facility] Comment on above: Performed By: #### L 501.080 #### [facility] [address] [place], [address] MCHC (RBC) [Mass/Vol] 33.5 g/dL Normal 32-36 [facility] Comment on above: Performed By: #### L 501.080 #### [facility] [address] [place], [address] MCV (RBC) [Entitic vol] 90.6 fL Normal 81-99 [facility] Comment on above: Performed By: #### L 501.080 #### [facility] [address] [place], [address] Platelet mean volume (Bld) [Entitic vol] 11.0 fL Normal 6.2-12.0 [facility] Comment on above: Performed By: #### L 501.080 #### [facility] [address] [place], [address] Platelets (Bld) [#/Vol] 103 10*3/uL Low 150-450 [facility] Comment on above: Performed By: #### L 501.080 #### [facility] [address] [place], [address] RBC (Bld) [#/Vol] 3.82 10*6/uL Low 4.2-5.4 [facility] Comment on above: Performed By: #### L 501.080 #### [facility] [address] [place], [address] RDW SD 48.3 fl High 35.1-43.9 [facility] Comment on above: Performed By: #### L 501.080 #### [facility] [address] [place], [address] WBC (Bld) [#/Vol] 3.6 10*3/uL Low 4.4-11.0 [facility] Comment on above: Performed By: #### L 501.080 #### [facility] [address] [place], [address] Magnesiumon 04-01-2025 Magnesium [Mass/Vol] 2.3 mg/dL High 1.5-2.2 [facility] Comment on above: Performed By: #### L 501.080 #### [facility] [address] [place], [address] Urinalysis, Completeon 04-01 BACTERIA 2+ /hpf Normal None Seen [facility] Comment on above: Order Comment: CLEAN CATCH Performed By: #### L 501.080 #### [facility] [address] [place], [address] EPI,SQUAMOUS 0-5 SEEN Normal 5-10 [facility] Comment on above: Order Comment: CLEAN CATCH Performed By: #### L 501.080 #### [facility] [address] [place], [address] WBC 10-25 SEEN Normal 0-5 [facility] Comment on above: Order Comment: CLEAN CATCH Performed By: #### L 501.080 #### [facility] [address] [place], [address] Mucus Ql (Urine sed) 0 SEEN Normal [facility] Comment on above: Order Comment: CLEAN CATCH Performed By: #### L 501.080 #### [facility] [address] [place], [address] RBC 0 SEEN Normal 0-5 [facility] Comment on above: Order Comment: CLEAN CATCH Performed By: #### L 501.080 #### [facility] [address] [place], [address] Basic Metabolic Profile (BMP )on 03-20-2025 BUN/CRE 20.6 RATIO High 03-25 [facility] Comment on above: Order Comment: 134 Performed By: #### L 500.4050, L506.1000, L501.9985, L100.0100 #### [facility] [address] [place], [address] Calcium [Mass/Vol] 9.7 mg/dL Normal 7.6-11.0 [facility] Comment on above: Order Comment: 134 Performed By: #### L 500.4050, L506.1000, L501.9985, L100.0100 #### [facility] [address] [place], [address] Chloride [Moles/Vol] 103 mmol/L Normal 98-108 [facility] Comment on above: Order Comment: 134 Performed By: #### L 500.4050, L506.1000, L501.9985, L100.0100 #### [facility] [address] [place], [address] CO2 [Moles/Vol] 21.4 mmol/L Normal 21.0-32.0 [facility] Comment on above: Order Comment: 134 Performed By: #### L 500.4050, L506.1000, L501.9985, L100.0100 #### [facility] [address] [place], [address] Creatinine [Mass/Vol] 1.15 mg/dL Normal 0.70-1.20 [facility] Comment on above: Order Comment: 134 Performed By: #### L 500.4050, L506.1000, L501.9985, L100.0100 #### [facility] [address] [place], [address] GAP 13 Normal 5-15 [facility] Comment on above: Order Comment: 134 Performed By: #### L 500.4050, L506.1000, L501.9985, L100.0100 #### [facility] [address] [place], [address] GFR/1.73 sq M.predicted among non-blacks MDRD (S/P/Bld) [Vol rate/Area] 51 mL/min/{1.73_m2} Low >60 [facility] Comment on above: Order Comment: 134 Result Comment: mL/m in/1.73m2 CKD-EPI Creatinine Equation (2020) Performed By: #### L 500.4050, L506.1000, L501.9985, L100.0100 #### [facility] [address] [place], [address] Glucose [Mass/Vol] 224 mg/dL High 70-99 [facility] Comment on above: Order Comment: 134 Performed By: #### L 500.4050, L506.1000, L501.9985, L100.0100 #### [facility] [address] [place], [address] Potassium [Moles/Vol] 4.7 mmol/L Normal 3.3-5.1 [facility] Comment on above: Order Comment: 134 Result Comment: Hemo lysis present, Results??could be affected. ?? Performed By: #### L 500.4050, L506.1000, L501.9985, L100.0100 #### [facility] [address] [place], [address] Sodium [Moles/Vol] 137 mmol/L Normal 133-145 [facility] Comment on above: Order Comment: 134 Performed By: #### L 500.4050, L506.1000, L501.9985, L100.0100 #### [facility] [address] [place], [address] Urea nitrogen [Mass/Vol] 24 mg/dL High 4-19 [facility] Comment on above: Order Comment: 134 Performed By: #### L 500.4050, L506.1000, L501.9985, L100.0100 #### [facility] [address] [place], [address] CBC-Complete Blood Cnt No Di ffon 03-20-2025 Erythrocyte distribution width (RBC) [Ratio] 14.8 % High 11.6-14.6 [facility] Comment on above: Order Comment: 134 Performed By: #### L 500.4050, L506.1000, L501.9985, L100.0100 #### [facility] [address] [place], [address] Hematocrit (Bld) [Volume fraction] 35.8 % Low 37-47 [facility] Comment on above: Order Comment: 134 Performed By: #### L 500.4050, L506.1000, L501.9985, L100.0100 #### [facility] [address] [place], [address] Hemoglobin (Bld) [Mass/Vol] 11.8 g/dL Low 12.0-15.0 [facility] Comment on above: Order Comment: 134 Performed By: #### L 500.4050, L506.1000, L501.9985, L100.0100 #### [facility] [address] [place], [address] MCH (RBC) [Entitic mass] 29.9 pg Normal 27.0-32.0 [facility] Comment on above: Order Comment: 134 Performed By: #### L 500.4050, L506.1000, L501.9985, L100.0100 #### [facility] [address] [place], [address] MCHC (RBC) [Mass/Vol] 33.0 g/dL Normal 32-36 [facility] Comment on above: Order Comment: 134 Performed By: #### L 500.4050, L506.1000, L501.9985, L100.0100 #### [facility] [address] [place], [address] MCV (RBC) [Entitic vol] 90.6 fL Normal 81-99 [facility] Comment on above: Order Comment: 134 Performed By: #### L 500.4050, L506.1000, L501.9985, L100.0100 #### [facility] [address] [place], [address] Platelet mean volume (Bld) [Entitic vol] 11.3 fL Normal 6.2-12.0 [facility] Comment on above: Order Comment: 134 Performed By: #### L 500.4050, L506.1000, L501.9985, L100.0100 #### [facility] [address] [place], [address] Platelets (Bld) [#/Vol] 103 10*3/uL Low 150-450 [facility] Comment on above: Order Comment: 134 Performed By: #### L 500.4050, L506.1000, L501.9985, L100.0100 #### [facility] [address] [place], [address] RBC (Bld) [#/Vol] 3.95 10*6/uL Low 4.2-5.4 [facility] Comment on above: Order Comment: 134 Performed By: #### L 500.4050, L506.1000, L501.9985, L100.0100 #### [facility] [address] [place], [address] RDW SD 49.4 fl High 35.1-43.9 [facility] Comment on above: Order Comment: 134 Performed By: #### L 500.4050, L506.1000, L501.9985, L100.0100 #### [facility] [address] [place], [address] WBC (Bld) [#/Vol] 3.7 10*3/uL Low 4.4-11.0 [facility] Comment on above: Order Comment: 134 Performed By: #### L 500.4050, L506.1000, L501.9985, L100.0100 #### [facility] [address] [place], [address] Hemoglobin A1con 03-20-2025 HbA1c (Bld) [Mass fraction] 7.1 % High <=5.6 [facility] Comment on above: Order Comment: 134 Result Comment: Norm al < 5.7 % Prediabetic 5.7 - 6.4 % Diabetic >or= 6.5 % Please note range changes. Performed By: #### L 500.4050, L506.1000, L501.9985, L100.0100 #### [facility] [address] [place], [address] Pro- Brain NATRIURETIC PEPTI Oskar 03-20-2025 Natriuretic peptide B (Bld) [Mass/Vol] 133 pg/mL Normal <=900 [facility] Comment on above: Order Comment: 134 Result Comment: Hear t Failure Unlikely: < 300 pg/mL Heart Failure Likely < 50 Years: > 450 pg/mL 50-75 Years: > 900 pg/mL >75 Years: > 1800 pg/mL Performed By: #### L 500.4050, L506.1000, L501.9985, L100.0100 #### [facility] [address] [place], [address] Magnesiumon 01-23-2025 Magnesium [Mass/Vol] 2.1 mg/dL Normal 1.5-2.2 [facility] Comment on above: Order Comment: 134 Performed By: #### L 500.4050, L506.1000, L501.9985, L100.0100 #### [facility] [address] [place], [address] Anion gap in Serum or Plasma Ordered By: Malathi Tomas on 01-21-2025 Anion gap [Moles/Vol] 13 mmol/L -15 [facility] BUN/creatinine ratioOrdered By: Malathi Tomas on 01-21-2025 Urea nitrogen/Creatinine [Mass ratio] 23.4 mg/mg High - [facility] Basic Metabolic Profile (BMP )on 01-21-2025 BUN/CRE 23.4 RATIO High - [facility] Comment on above: Order Comment: 134 Performed By: #### L 500.4050, L506.1000, L501.9985, L100.0100 #### [facility] [address] [place], [address] Calcium [Mass/Vol] 9.2 mg/dL Normal 7.6-11.0 [facility] Comment on above: Order Comment: 134 Performed By: #### L 500.4050, L506.1000, L501.9985, L100.0100 #### [facility] [address] [place], [address] Chloride [Moles/Vol] 103 mmol/L Normal 98-108 [facility] Comment on above: Order Comment: 134 Performed By: #### L 500.4050, L506.1000, L501.9985, L100.0100 #### [facility] [address] [place], [address] CO2 [Moles/Vol] 20.8 mmol/L Low 21.0-32.0 [facility] Comment on above: Order Comment: 134 Performed By: #### L 500.4050, L506.1000, L501.9985, L100.0100 #### [facility] [address] [place], [address] Creatinine [Mass/Vol] 1.01 mg/dL Normal 0.70-1.20 [facility] Comment on above: Order Comment: 134 Performed By: #### L 500.4050, L506.1000, L501.9985, L100.0100 #### [facility] [address] [place], [address] GAP 13 Normal 5-15 [facility] Comment on above: Order Comment: 134 Performed By: #### L 500.4050, L506.1000, L501.9985, L100.0100 #### [facility] [address] [place], [address] GFR/1.73 sq M.predicted among non-blacks MDRD (S/P/Bld) [Vol rate/Area] 59 mL/min/{1.73_m2} Low >60 [facility] Comment on above: Order Comment: 134 Result Comment: mL/m in/1.73m2 CKD-EPI Creatinine Equation (2020) Performed By: #### L 500.4050, L506.1000, L501.9985, L100.0100 #### [facility] [address] [place], [address] Glucose [Mass/Vol] 164 mg/dL High 70-99 [facility] Comment on above: Order Comment: 134 Performed By: #### L 500.4050, L506.1000, L501.9985, L100.0100 #### [facility] [address] [place], [address] Potassium [Moles/Vol] 4.8 mmol/L Normal 3.3-5.1 [facility] Comment on above: Order Comment: 134 Performed By: #### L 500.4050, L506.1000, L501.9985, L100.0100 #### [facility] [address] [place], [address] Sodium [Moles/Vol] 137 mmol/L Normal 133-145 [facility] Comment on above: Order Comment: 134 Performed By: #### L 500.4050, L506.1000, L501.9985, L100.0100 #### [facility] [address] [place], [address] Urea nitrogen [Mass/Vol] 24 mg/dL High 4-19 [facility] Comment on above: Order Comment: 134 Performed By: #### L 500.4050, L506.1000, L501.9985, L100.0100 #### [facility] [address] [place], [address] Carbon dioxide, total [Moles /volume] in Central venous bloodOrdered By: Malathi Tomas on 01-21-2025 CO2 [Moles/Vol] 20.8 mmol/L Low 21.0-32.0 [facility] Chloride assayOrdered By: Tao Tomas on 01-21-2025 Chloride [Moles/Vol] 103 mmol/L 98-108 [facility] Glomerular filtration rate ( GFR) estimation/1.73 sq m using serum, plasma, or whole bOrdered By: Malathi Tomas on 01-21-2025 GFR/1.73 sq M.predicted among non-blacks MDRD (S/P/Bld) [Vol rate/Area] 59 mL/min/{1.73_m2} Low >60 [facility] Comment on above: mL/min/1.73m2 CKD-EP I Creatinine Equation (2020) Magnesium measurement (mass/ volume)Ordered By: Malathi Tomas on 01-21-2025 Magnesium (Unsp spec) [Mass/Vol] 2.1 mg/dL 1.5-2.2 [facility] Natriuretic peptide.B prohor magi N-Terminal [Mass/volume] in Serum or PlasmaOrdered By: Malathi Tomas on 01-21-2025 Natriuretic peptide.B prohormone N-Terminal [Mass/Vol] 260 pg/mL <900 [facility] Comment on above: Heart Failure Unlike ly: < 300 pg/mLHeart Failure Likely< 50 Years: > 450 pg/mL50-75 Years: > 900 pg/mL>75 Years: > 1800 pg/mL Potassium measurement (mass/ volume)Ordered By: Malathi Tomas on 01-21-2025 Potassium (Unsp spec) [Mass/Vol] 4.8 mmol/L 3.3-5.1 [facility] Pro- Brain NATRIURETIC PEPTI Oskar 01-21-2025 Natriuretic peptide B (Bld) [Mass/Vol] 260 pg/mL Normal <=900 [facility] Comment on above: Order Comment: 134 Result Comment: Hear t Failure Unlikely: < 300 pg/mL Heart Failure Likely < 50 Years: > 450 pg/mL 50-75 Years: > 900 pg/mL >75 Years: > 1800 pg/mL Performed By: #### L 500.4050, L506.1000, L501.9985, L100.0100 #### [facility] [place], [address] Serum creatinine measurement (mass/volume)Ordered By: Malathi Tomas on 01-21-2025 Creatinine [Mass/Vol] 1.01 mg/dL 0.70-1.20 [facility] Serum glucose measurement (m ass/volume)Ordered By: Malathi Tomas on 01-21-2025 Glucose [Mass/Vol] 164 mg/dL High 70-99 [facility] Serum or plasma calcium kim urement (mass/volume)Ordered By: Malathi Tomas on 01-21-2025 Calcium [Mass/Vol] 9.2 mg/dL 7.6-11.0 [facility] Serum or plasma urea nitroge n measurement (mass/volume)Ordered By: Malathi Tomas on 01-21-2025 Urea nitrogen [Mass/Vol] 24 mg/dL High 4-19 [facility] Sodium levelOrdered By: Marie Tomas on 01-21-2025 Sodium [Moles/Vol] 137 mmol/L 133-145 [facility] Anion gap in Serum or Plasma Ordered By: Malathi Tomas on 12-04-2024 Anion gap [Moles/Vol] 10 mmol/L 5-15 [facility] BUN/creatinine ratioOrdered By: Malathi Tomas on 12-04-2024 Urea nitrogen/Creatinine [Mass ratio] 22.2 mg/mg High - [facility] Basic Metabolic Profile (BMP )on 12-04-2024 BUN/CRE 22.2 RATIO High - [facility] Comment on above: Order Comment: N Performed By: #### L 506.0200 #### [facility] [address] [place], [address] Calcium [Mass/Vol] 9.4 mg/dL Normal 7.6-11.0 [facility] Comment on above: Order Comment: N Performed By: #### L 506.0200 #### [facility] [address] [place], [address] Chloride [Moles/Vol] 103 mmol/L Normal 98-108 [facility] Comment on above: Order Comment: N Performed By: #### L 506.0200 #### [facility] [address] [place], [address] CO2 [Moles/Vol] 23.5 mmol/L Normal 21.0-32.0 [facility] Comment on above: Order Comment: N Performed By: #### L 506.0200 #### [facility] [address] [place], [address] Creatinine [Mass/Vol] 1.13 mg/dL Normal 0.70-1.20 [facility] Comment on above: Order Comment: N Performed By: #### L 506.0200 #### [facility] [address] [place], [address] GAP 10 Normal 5-15 [facility] Comment on above: Order Comment: N Performed By: #### L 506.0200 #### [facility] [address] [place], [address] GFR/1.73 sq M.predicted among non-blacks MDRD (S/P/Bld) [Vol rate/Area] 52 mL/min/{1.73_m2} Low >60 [facility] Comment on above: Order Comment: N Result Comment: mL/m in/1.73m2 CKD-EPI Creatinine Equation (2020) Performed By: #### L 506.0200 #### [facility] [address] [place], [address] Glucose [Mass/Vol] 83 mg/dL Normal 70-99 [facility] Comment on above: Order Comment: N Performed By: #### L 506.0200 #### [facility] [address] [place], [address] Potassium [Moles/Vol] 5.1 mmol/L Normal 3.3-5.1 [facility] Comment on above: Order Comment: N Result Comment: Hemo lysis present, Results??could be affected. ?? Performed By: #### L 506.0200 #### [facility] [address] [place], [address] Sodium [Moles/Vol] 136 mmol/L Normal 133-145 [facility] Comment on above: Order Comment: N Performed By: #### L 506.0200 #### [facility] [address] [place], [address] Urea nitrogen [Mass/Vol] 25 mg/dL High 4-19 [facility] Comment on above: Order Comment: N Performed By: #### L 506.0200 #### [facility] [address] [place], [address] CBC-Complete Blood Cnt No Di ffon 12-04-2024 Erythrocyte distribution width (RBC) [Ratio] 16.2 % High 11.6-14.6 [facility] Comment on above: Order Comment: N Performed By: #### L 506.0200 #### [facility] [address] [place], [address] Hematocrit (Bld) [Volume fraction] 33.8 % Low 37-47 [facility] Comment on above: Order Comment: N Performed By: #### L 506.0200 #### [facility] [address] [place], [address] Hemoglobin (Bld) [Mass/Vol] 11.2 g/dL Low 12.0-15.0 [facility] Comment on above: Order Comment: N Performed By: #### L 506.0200 #### [facility] [address] [place], [address] MCH (RBC) [Entitic mass] 29.3 pg Normal 27.0-32.0 [facility] Comment on above: Order Comment: N Performed By: #### L 506.0200 #### [facility] [address] [place], [address] MCHC (RBC) [Mass/Vol] 33.1 g/dL Normal 32-36 [facility] Comment on above: Order Comment: N Performed By: #### L 506.0200 #### [facility] [address] [place], [address] MCV (RBC) [Entitic vol] 88.5 fL Normal 81-99 [facility] Comment on above: Order Comment: N Performed By: #### L 506.0200 #### [facility] [address] [place], [address] Platelet mean volume (Bld) [Entitic vol] 11.2 fL Normal 6.2-12.0 [facility] Comment on above: Order Comment: N Performed By: #### L 506.0200 #### [facility] [address] [place], [address] Platelets (Bld) [#/Vol] 119 10*3/uL Low 150-450 [facility] Comment on above: Order Comment: N Performed By: #### L 506.0200 #### [facility] [address] [place], [address] RBC (Bld) [#/Vol] 3.82 10*6/uL Low 4.2-5.4 [facility] Comment on above: Order Comment: N Performed By: #### L 506.0200 #### [facility] [address] [place], [address] RDW SD 52.9 fl High 35.1-43.9 [facility] Comment on above: Order Comment: N Performed By: #### L 506.0200 #### [facility] [address] [place], [address] WBC (Bld) [#/Vol] 3.1 10*3/uL Low 4.4-11.0 [facility] Comment on above: Order Comment: N Performed By: #### L 506.0200 #### [facility] [address] [place], [address] Carbon dioxide, total [Moles /volume] in Central venous bloodOrdered By: Malathi Tomas on 12-04-2024 CO2 [Moles/Vol] 23.5 mmol/L 21.0-32.0 [facility] Chloride assayOrdered By: Tao Tomas on 12-04-2024 Chloride [Moles/Vol] 103 mmol/L 98-108 [facility] Erythrocyte distribution wid th ratioOrdered By: Malathi Tomas on 12-04-2024 Erythrocyte distribution width (RBC) [Ratio] 16.2 % High 11.6-14.6 [facility] Erythrocyte distribution wid th standard deviationOrdered By: Malathi Tomas on 12-04-2024 Erythrocyte distribution width (RBC) [Ratio] 52.9 fl High 35.1-43.9 [facility] Glomerular filtration rate ( GFR) estimation/1.73 sq m using serum, plasma, or whole bOrdered By: Malathi Tomas on 12-04-2024 GFR/1.73 sq M.predicted among non-blacks MDRD (S/P/Bld) [Vol rate/Area] 52 mL/min/{1.73_m2} Low >60 [facility] Comment on above: mL/min/1.73m2 CKD-EP I Creatinine Equation (2020) Hematocrit Auto (Bld) [Volum e fraction]Ordered By: Malathi Tomas on 12-04-2024 Hematocrit (Bld) [Volume fraction] 33.8 % Low 37-47 [facility] Hemoglobin measurementOrdere d By: Malathi Tomas on 12-04-2024 Hemoglobin (Bld) [Mass/Vol] 11.2 g/dL Low 12.0-15.0 [facility] MCV (mean corpuscular volume ) determinationOrdered By: Malathi Tomas on 12-04-2024 MCV (RBC) [Entitic vol] 88.5 fL 81-99 [facility] Magnesiumon 12-04-2024 Magnesium [Mass/Vol] 2.3 mg/dL High 1.5-2.2 [facility] Comment on above: Order Comment: N Performed By: #### L 506.0200 #### [facility] [address] [place], [place] [address], [id number] Magnesium measurement (mass/ volume)Ordered By: Malathi Tomas on 12-04-2024 Magnesium (Unsp spec) [Mass/Vol] 2.3 mg/dL High 1.5-2.2 [facility] Mean corpuscular hemoglobin (MCH) determinationOrdered By: Malathi Tomas on 12-04-2024 MCH (RBC) [Entitic mass] 29.3 pg 27.0-32.0 [facility] Mean corpuscular hemoglobin concentration (MCHC) determinationOrdered By: Malathi Tomas on 12-04-2024 MCHC (RBC) [Mass/Vol] 33.1 g/dL 32-36 [facility] Mean platelet volume determi nationOrdered By: Malathi Tomas on 12-04-2024 Platelet mean volume (Bld) [Entitic vol] 11.2 fL 6.2-12.0 [facility] Platelet countOrdered By: Tao Tomas on 12-04-2024 Platelets (Bld) [#/Vol] 119 10*3/uL Low 150-450 [facility] Potassium measurement (mass/ volume)Ordered By: Malathi Tomas on 12-04-2024 Potassium (Unsp spec) [Mass/Vol] 5.1 mmol/L 3.3-5.1 [facility] Comment on above: Hemolysis present, R esults could be affected. RBC Auto (Bld) [#/Vol]Ordere d By: Malathi Tomas on 12-04-2024 RBC (Bld) [#/Vol] 3.82 10*6/uL Low 4.2-5.4 [facility] Serum creatinine measurement (mass/volume)Ordered By: Malathi Tomas on 12-04-2024 Creatinine [Mass/Vol] 1.13 mg/dL 0.70-1.20 [facility] Serum glucose measurement (m ass/volume)Ordered By: Malathi Tomas on 12-04-2024 Glucose [Mass/Vol] 83 mg/dL 70-99 [facility] Serum or plasma calcium kim urement (mass/volume)Ordered By: Malathi Tomas on 12-04-2024 Calcium [Mass/Vol] 9.4 mg/dL 7.6-11.0 [facility] Serum or plasma urea nitroge n measurement (mass/volume)Ordered By: Malathi Tomas on 12-04-2024 Urea nitrogen [Mass/Vol] 25 mg/dL High 4-19 [facility] Sodium levelOrdered By: Marie Tomas on 12-04-2024 Sodium [Moles/Vol] 136 mmol/L 133-145 [facility] White blood cell (WBC) count Ordered By: Malathi Tomas on 12-04-2024 WBC (Bld) [#/Vol] 3.1 10*3/uL Low 4.4-11.0 [facility] Anion gap in Serum or Plasma Ordered By: Malathi Tomas on 11-26-2024 Anion gap [Moles/Vol] 12 mmol/L 5-15 [facility] BUN/creatinine ratioOrdered By: Malathi Tomas on 11-26-2024 Urea nitrogen/Creatinine [Mass ratio] 19.5 mg/mg - [facility] Basic Metabolic Profile (BMP )on 11-26-2024 BUN/CRE 19.5 RATIO Normal - [facility] Comment on above: Order Comment: 134 Performed By: #### L 500.4050, L506.1000, L501.9985, L100.0100 #### [facility] [address] [place], [address] Calcium [Mass/Vol] 9.3 mg/dL Normal 7.6-11.0 [facility] Comment on above: Order Comment: 134 Performed By: #### L 500.4050, L506.1000, L501.9985, L100.0100 #### [facility] [address] [place], [address] Chloride [Moles/Vol] 106 mmol/L Normal 98-108 [facility] Comment on above: Order Comment: 134 Performed By: #### L 500.4050, L506.1000, L501.9985, L100.0100 #### [facility] [address] [place], [address] CO2 [Moles/Vol] 22.9 mmol/L Normal 21.0-32.0 [facility] Comment on above: Order Comment: 134 Performed By: #### L 500.4050, L506.1000, L501.9985, L100.0100 #### [facility] [address] [place], [address] Creatinine [Mass/Vol] 0.95 mg/dL Normal 0.70-1.20 [facility] Comment on above: Order Comment: 134 Performed By: #### L 500.4050, L506.1000, L501.9985, L100.0100 #### [facility] [address] [place], [address] GAP 12 Normal 5-15 [facility] Comment on above: Order Comment: 134 Performed By: #### L 500.4050, L506.1000, L501.9985, L100.0100 #### [facility] [address] [place], [address] GFR/1.73 sq M.predicted among non-blacks MDRD (S/P/Bld) [Vol rate/Area] 64 mL/min/{1.73_m2} Normal >60 [facility] Comment on above: Order Comment: 134 Result Comment: mL/m in/1.73m2 CKD-EPI Creatinine Equation (2020) Performed By: #### L 500.4050, L506.1000, L501.9985, L100.0100 #### [facility] [address] [place], [address] Glucose [Mass/Vol] 89 mg/dL Normal 70-99 [facility] Comment on above: Order Comment: 134 Performed By: #### L 500.4050, L506.1000, L501.9985, L100.0100 #### [facility] [address] [place], [address] Potassium [Moles/Vol] 4.5 mmol/L Normal 3.3-5.1 [facility] Comment on above: Order Comment: 134 Performed By: #### L 500.4050, L506.1000, L501.9985, L100.0100 #### [facility] [address] [place], [address] Sodium [Moles/Vol] 140 mmol/L Normal 133-145 [facility] Comment on above: Order Comment: 134 Performed By: #### L 500.4050, L506.1000, L501.9985, L100.0100 #### [facility] [address] [place], [address] Urea nitrogen [Mass/Vol] 18 mg/dL Normal 4-19 [facility] Comment on above: Order Comment: 134 Performed By: #### L 500.4050, L506.1000, L501.9985, L100.0100 #### [facility] [address] [place], [address] Carbon dioxide, total [Moles /volume] in Central venous bloodOrdered By: Malathi Tomas on 11-26-2024 CO2 [Moles/Vol] 22.9 mmol/L 21.0-32.0 [facility] Chloride assayOrdered By: Tao Tomas on 11-26-2024 Chloride [Moles/Vol] 106 mmol/L 98-108 [facility] Glomerular filtration rate ( GFR) estimation/1.73 sq m using serum, plasma, or whole bOrdered By: Malathi Tomas on 11-26-2024 GFR/1.73 sq M.predicted among non-blacks MDRD (S/P/Bld) [Vol rate/Area] 64 mL/min/{1.73_m2} >60 [facility] Comment on above: mL/min/1.73m2 CKD-EP I Creatinine Equation (2020) Magnesiumon 11-26-2024 Magnesium [Mass/Vol] 2.2 mg/dL Normal 1.5-2.2 [facility] Comment on above: Order Comment: 134 Performed By: #### L 500.4050, L506.1000, L501.9985, L100.0100 #### [facility] [address] [place], [address] Magnesium measurement (mass/ volume)Ordered By: Malathi Tomas on 11-26-2024 Magnesium (Unsp spec) [Mass/Vol] 2.2 mg/dL 1.5-2.2 [facility] Potassium measurement (mass/ volume)Ordered By: Malathi Tomas on 11-26-2024 Potassium (Unsp spec) [Mass/Vol] 4.5 mmol/L 3.3-5.1 [facility] Serum creatinine measurement (mass/volume)Ordered By: Malathi Tomas on 11-26-2024 Creatinine [Mass/Vol] 0.95 mg/dL 0.70-1.20 [facility] Serum glucose measurement (m ass/volume)Ordered By: Malathi Tomas on 11-26-2024 Glucose [Mass/Vol] 89 mg/dL 70-99 [facility] Serum or plasma calcium kim urement (mass/volume)Ordered By: Malathi Tomas on 11-26-2024 Calcium [Mass/Vol] 9.3 mg/dL 7.6-11.0 [facility] Serum or plasma urea nitroge n measurement (mass/volume)Ordered By: Malathi Tomas on 11-26-2024 Urea nitrogen [Mass/Vol] 18 mg/dL 4-19 [facility] Sodium levelOrdered By: Marie Tomas on 11-26-2024 Sodium [Moles/Vol] 140 mmol/L 133-145 [facility] Basic Metabolic Profile (BMP )on 11-07-2024 BUN/CRE 19.5 RATIO Normal 10-20 [facility] Comment on above: Order Comment: 134 Performed By: #### L 500.4050, L506.1000, L501.9985, L100.0100 #### [facility] [address] [place], [address] Calcium [Mass/Vol] 9.0 mg/dL Normal 7.6-11.0 [facility] Comment on above: Order Comment: 134 Performed By: #### L 500.4050, L506.1000, L501.9985, L100.0100 #### [facility] [address] [place], [address] Chloride [Moles/Vol] 103 mmol/L Normal 98-108 [facility] Comment on above: Order Comment: 134 Performed By: #### L 500.4050, L506.1000, L501.9985, L100.0100 #### [facility] [address] [place], [address] CO2 [Moles/Vol] 25.5 mmol/L Normal 21.0-32.0 [facility] Comment on above: Order Comment: 134 Performed By: #### L 500.4050, L506.1000, L501.9985, L100.0100 #### [facility] [address] [place], [address] Creatinine [Mass/Vol] 0.82 mg/dL Normal 0.70-1.20 [facility] Comment on above: Order Comment: 134 Performed By: #### L 500.4050, L506.1000, L501.9985, L100.0100 #### [facility] [address] [place], [address] GAP 10 Normal 5-15 [facility] Comment on above: Order Comment: 134 Performed By: #### L 500.4050, L506.1000, L501.9985, L100.0100 #### [facility] [address] [place], [address] GFR/1.73 sq M.predicted among non-blacks MDRD (S/P/Bld) [Vol rate/Area] 76 mL/min/{1.73_m2} Normal >60 [facility] Comment on above: Order Comment: 134 Result Comment: mL/m in/1.73m2 CKD-EPI Creatinine Equation (2020) Performed By: #### L 500.4050, L506.1000, L501.9985, L100.0100 #### [facility] [address] [place], [address] Glucose [Mass/Vol] 79 mg/dL Normal 70-99 [facility] Comment on above: Order Comment: 134 Performed By: #### L 500.4050, L506.1000, L501.9985, L100.0100 #### [facility] [address] [place], [address] Potassium [Moles/Vol] 4.1 mmol/L Normal 3.3-5.1 [facility] Comment on above: Order Comment: 134 Performed By: #### L 500.4050, L506.1000, L501.9985, L100.0100 #### [facility] [address] [place], [address] Sodium [Moles/Vol] 139 mmol/L Normal 133-145 [facility] Comment on above: Order Comment: 134 Performed By: #### L 500.4050, L506.1000, L501.9985, L100.0100 #### [facility] [address] [place], [address] Urea nitrogen [Mass/Vol] 16 mg/dL Normal 4-19 [facility] Comment on above: Order Comment: 134 Performed By: #### L 500.4050, L506.1000, L501.9985, L100.0100 #### [facility] [address] [place], [address] CBC W/Diff, Automatedon 06-0 4-2025 Absolute Lymph 1.04 X10 3/uL Normal 0.83-4.51 [facility] Comment on above: Order Comment: 134 Performed By: #### L 500.4050, L506.1000, L501.9985, L100.0100 #### [facility] [address] [place], [address] Absolute Neut 2.2 X10 3/uL Normal 2.0-7.7 [facility] Comment on above: Order Comment: 134 Performed By: #### L 500.4050, L506.1000, L501.9985, L100.0100 #### [facility] [address] [place], [address] Basophils/100 WBC (Bld) 0.8 % Normal 0-1 [facility] Comment on above: Order Comment: 134 Performed By: #### L 500.4050, L506.1000, L501.9985, L100.0100 #### [facility] [address] [place], [address] Eosinophils/100 WBC (Bld) 3.2 % Normal 0-5 [facility] Comment on above: Order Comment: 134 Performed By: #### L 500.4050, L506.1000, L501.9985, L100.0100 #### [facility] [address] [place], [address] Erythrocyte distribution width (RBC) [Ratio] 15.9 % High 11.6-14.6 [facility] Comment on above: Order Comment: 134 Performed By: #### L 500.4050, L506.1000, L501.9985, L100.0100 #### [facility] [address] [place], [address] Hematocrit (Bld) [Volume fraction] 34.4 % Low 37-47 [facility] Comment on above: Order Comment: 134 Performed By: #### L 500.4050, L506.1000, L501.9985, L100.0100 #### [facility] [address] [place], [address] Hemoglobin (Bld) [Mass/Vol] 11.1 g/dL Low 12.0-15.0 [facility] Comment on above: Order Comment: 134 Performed By: #### L 500.4050, L506.1000, L501.9985, L100.0100 #### [facility] [address] [place], [address] IG% 0.500 Normal 0.0-0.9 [facility] Comment on above: Order Comment: 134 Result Comment: IG% - Immature Granulocytes (promyelocytes, myelocytes and metamyelocytes) > 1% indicates that a LEFT SHIFT is Present. Performed By: #### L 500.4050, L506.1000, L501.9985, L100.0100 #### [facility] [address] [place], [address] Lymphocytes/100 WBC (Bld) 27.4 % Normal 19-41 [facility] Comment on above: Order Comment: 134 Performed By: #### L 500.4050, L506.1000, L501.9985, L100.0100 #### [facility] [address] [place], [address] MCH (RBC) [Entitic mass] 28.3 pg Normal 27.0-32.0 [facility] Comment on above: Order Comment: 134 Performed By: #### L 500.4050, L506.1000, L501.9985, L100.0100 #### [facility] [address] [place], [address] MCHC (RBC) [Mass/Vol] 32.3 g/dL Normal 32-36 [facility] Comment on above: Order Comment: 134 Performed By: #### L 500.4050, L506.1000, L501.9985, L100.0100 #### [facility] [address] [place], [address] MCV (RBC) [Entitic vol] 87.8 fL Normal 81-99 [facility] Comment on above: Order Comment: 134 Performed By: #### L 500.4050, L506.1000, L501.9985, L100.0100 #### [facility] [address] [place], [address] Monocytes/100 WBC (Bld) 9.7 % Normal 0-10 [facility] Comment on above: Order Comment: 134 Performed By: #### L 500.4050, L506.1000, L501.9985, L100.0100 #### [facility] [address] [place], [address] Neutrophils/100 WBC (Bld) 58.4 % Normal 47-70 [facility] Comment on above: Order Comment: 134 Performed By: #### L 500.4050, L506.1000, L501.9985, L100.0100 #### [facility] [address] [place], [address] Nucleated RBC (Bld) [#/Vol] 0 10*3/uL Normal 0-5 [facility] Comment on above: Order Comment: 134 Performed By: #### L 500.4050, L506.1000, L501.9985, L100.0100 #### [facility] [address] [place], [address] Platelet mean volume (Bld) [Entitic vol] 10.7 fL Normal 6.2-12.0 [facility] Comment on above: Order Comment: 134 Performed By: #### L 500.4050, L506.1000, L501.9985, L100.0100 #### [facility] [address] [place], [address] Platelets (Bld) [#/Vol] 122 10*3/uL Low 150-450 [facility] Comment on above: Order Comment: 134 Performed By: #### L 500.4050, L506.1000, L501.9985, L100.0100 #### [facility] [address] [place], [address] RBC (Bld) [#/Vol] 3.92 10*6/uL Low 4.2-5.4 [facility] Comment on above: Order Comment: 134 Performed By: #### L 500.4050, L506.1000, L501.9985, L100.0100 #### [facility] [address] [place], [address] RDW SD 51.3 fl High 35.1-43.9 [facility] Comment on above: Order Comment: 134 Performed By: #### L 500.4050, L506.1000, L501.9985, L100.0100 #### [facility] [address] [place], [address] WBC (Bld) [#/Vol] 3.8 10*3/uL Low 4.4-11.0 [facility] Comment on above: Order Comment: 134 Performed By: #### L 500.4050, L506.1000, L501.9985, L100.0100 #### [facility] [address] [place], [address] Magnesiumon 11-07-2024 Magnesium [Mass/Vol] 2.1 mg/dL Normal 1.5-2.2 [facility] Comment on above: Order Comment: 134 Performed By: #### L 500.4050, L506.1000, L501.9985, L100.0100 #### [facility] [address] [place], [address] Basic Metabolic Profile (BMP )on 11-06-2024 BUN Normal 4-19 [facility] Comment on above: Order Comment: 134 Result Comment: QNS UTO X1 Performed By: #### L 500.4050, L506.1000, L501.9985, L100.0100 #### [facility] [address] [place], [address] BUN/CRE Normal 10-20 [facility] Comment on above: Order Comment: 134 Result Comment: QNS UTO X1 Performed By: #### L 500.4050, L506.1000, L501.9985, L100.0100 #### [facility] [address] [place], [address] Calcium Normal 7.6-11.0 [facility] Comment on above: Order Comment: 134 Result Comment: QNS UTO X1 Performed By: #### L 500.4050, L506.1000, L501.9985, L100.0100 #### [facility] [address] [place], [address] CL Normal 98-108 [facility] Comment on above: Order Comment: 134 Result Comment: QNS UTO X1 Performed By: #### L 500.4050, L506.1000, L501.9985, L100.0100 #### [facility] [address] [place], [address] CO2 Normal 21.0-32.0 [facility] Comment on above: Order Comment: 134 Result Comment: QNS UTO X1 Performed By: #### L 500.4050, L506.1000, L501.9985, L100.0100 #### [facility] [address] [place], [address] CREAT,SERUM Normal 0.70-1.20 [facility] Comment on above: Order Comment: 134 Result Comment: QNS UTO X1 Performed By: #### L 500.4050, L506.1000, L501.9985, L100.0100 #### [facility] [address] [place], [address] eGFR Normal >60 [facility] Comment on above: Order Comment: 134 Result Comment: QNS UTO X1 Performed By: #### L 500.4050, L506.1000, L501.9985, L100.0100 #### [facility] [address] [place], [address] GAP Normal 5-15 [facility] Comment on above: Order Comment: 134 Result Comment: QNS UTO X1 Performed By: #### L 500.4050, L506.1000, L501.9985, L100.0100 #### [facility] [address] [place], [address] GLU Normal 70-99 [facility] Comment on above: Order Comment: 134 Result Comment: QNS UTO X1 Performed By: #### L 500.4050, L506.1000, L501.9985, L100.0100 #### [facility] [address] [place], [address] Potassium Normal 3.3-5.1 [facility] Comment on above: Order Comment: 134 Result Comment: QNS UTO X1 Performed By: #### L 500.4050, L506.1000, L501.9985, L100.0100 #### [facility] [address] [place], [address] Basic Metabolic Profile (BMP) Normal 133-145 [facility] Comment on above: Order Comment: 134 Result Comment: QNS UTO X1 Performed By: #### L 500.4050, L506.1000, L501.9985, L100.0100 #### [facility] [address] [place], [address] CBC W/Diff, Automatedon 06-0 -2024 Absolute Neut Normal 2.0-7.7 [facility] Comment on above: Order Comment: 134 Result Comment: QNS UTO X1 Performed By: #### L 500.4050, L506.1000, L501.9985, L100.0100 #### [facility] [address] [place], [address] HCT Normal 37-47 [facility] Comment on above: Order Comment: 134 Result Comment: QNS UTO X1 Performed By: #### L 500.4050, L506.1000, L501.9985, L100.0100 #### [facility] [address] [place], [address] HGB Normal 12.0-15.0 [facility] Comment on above: Order Comment: 134 Result Comment: QNS UTO X1 Performed By: #### L 500.4050, L506.1000, L501.9985, L100.0100 #### [facility] [address] [place], [address] MCH Normal 27.0-32.0 [facility] Comment on above: Order Comment: 134 Result Comment: QNS UTO X1 Performed By: #### L 500.4050, L506.1000, L501.9985, L100.0100 #### [facility] [address] [place], [address] MCHC Normal 32-36 [facility] Comment on above: Order Comment: 134 Result Comment: QNS UTO X1 Performed By: #### L 500.4050, L506.1000, L501.9985, L100.0100 #### [facility] [address] [place], [address] MCV Normal 81-99 [facility] Comment on above: Order Comment: 134 Result Comment: QNS UTO X1 Performed By: #### L 500.4050, L506.1000, L501.9985, L100.0100 #### [facility] [address] [place], [address] NEUT% Normal 47-70 [facility] Comment on above: Order Comment: 134 Result Comment: QNS UTO X1 Performed By: #### L 500.4050, L506.1000, L501.9985, L100.0100 #### [facility] [address] [place], [address] PLT Normal 150-450 [facility] Comment on above: Order Comment: 134 Result Comment: QNS UTO X1 Performed By: #### L 500.4050, L506.1000, L501.9985, L100.0100 #### [facility] [address] [place], [address] RBC Normal 4.2-5.4 [facility] Comment on above: Order Comment: 134 Result Comment: QNS UTO X1 Performed By: #### L 500.4050, L506.1000, L501.9985, L100.0100 #### [facility] [address] [place], [address] RDW CV Normal 11.6-14.6 [facility] Comment on above: Order Comment: 134 Result Comment: QNS UTO X1 Performed By: #### L 500.4050, L506.1000, L501.9985, L100.0100 #### [facility] [address] [place], [address] RDW SD Normal 35.1-43.9 [facility] Comment on above: Order Comment: 134 Result Comment: QNS UTO X1 Performed By: #### L 500.4050, L506.1000, L501.9985, L100.0100 #### [facility] [address] [place], [address] WBC Normal 4.4-11.0 [facility] Comment on above: Order Comment: 134 Result Comment: QNS UTO X1 Performed By: #### L 500.4050, L506.1000, L501.9985, L100.0100 #### [facility] [address] [place], [address] Lamotrigine (Lamictal) Level on 11-02-2024 LAMOTRIGINE 8.5 ug/mL Normal 2.0-20.0 [facility] Comment on above: Order Comment: 134 Result Comment: Dete ction Limit = 1.0 Performed at: [address] [id number] [employer] Builder: Cody Llanos MD, Phone: [phone] Performed By: #### L 500.4050, L506.1000, L501.9985, L100.0100 #### [facility] [address] [place], [address] Trileptal-Oxcarbazepineon OXCARBAZEPINE 5 ug/mL Low 10-35 [facility] Comment on above: Order Comment: 134 Result Comment: This test was developed and its performance characteristics determined by [facility] [employer] [facility] [employer]. It has not been cleared or approved by the Food and Drug Administration. Detection Limit = 1 Performed By: #### L 500.4050, L506.1000, L501.9985, L100.0100 #### [facility] [address] [place], [address] CRPon 11-01-2024 C-REACTIVE PROT 14.10 mg/L High 0.0-3.0 [facility] Comment on above: Performed By: #### L 501.6710, L501.1400 #### [facility] [address] [place], [address] Uric Acidon 11-01-2024 URIC 5.6 mg/dL Normal 2.6-6.0 [facility] Comment on above: Result Comment: The drugs N-Acetylcysteine and Metamizole may falsely depress this assay. Performed By: #### L 501.6710, L501.1400 #### [facility] [address] [place], [address] Hemoglobin A1con 10-30-2024 HbA1c (Bld) [Mass fraction] 7.1 % High <=5.6 [facility] Comment on above: Order Comment: 134 Result Comment: Norm al < 5.7 % Prediabetic 5.7 - 6.4 % Diabetic >or= 6.5 % Please note range changes. Performed By: #### L 500.4050, L506.1000, L501.9985, L100.0100 #### [facility] [address] [place], [address] Lipid Profileon 10-30-2024 CHOL:HDL 1.80 Normal [facility] Comment on above: Order Comment: 134 Performed By: #### L 500.4050, L506.1000, L501.9985, L100.0100 #### [facility] [address] [place], [address] Cholesterol [Mass/Vol] 99 mg/dL Normal <=200 [facility] Comment on above: Order Comment: 134 Result Comment: Chol esterol level, Desirable <200 mg/dL Borderline high cholesterol 200-239 mg/dL High cholesterol >=240 mg/dL Recommendations of the NCEP Adult Treatment Panel for the following risk-cutoff thresholds for the [place] population. Performed By: #### L 500.4050, L506.1000, L501.9985, L100.0100 #### [facility] [address] [place], [address] Cholesterol in HDL [Mass/Vol] 55 mg/dL Normal [facility] Comment on above: Order Comment: 134 Result Comment: Linda onal Cholesterol Education Program (NCEP) guidelines: <40 mg/dL: Low HDL-cholesterol (major risk factor for CHD) >= 60 mg/dL: High HDL-cholesterol (negative risk factor for CHD) HDL-cholesterol is affected by a number of factors, e.g. smoking, exercise, hormones, sex and age. Performed By: #### L 500.4050, L506.1000, L501.9985, L100.0100 #### [facility] [address] [place], [address] Cholesterol in LDL [Mass/Vol] 34 mg/dL Normal [facility] Comment on above: Order Comment: 134 Result Comment: Bord ytyciy=975-646 mg/dL Higher Oesl=064 mg/dL or greater Performed By: #### L 500.4050, L506.1000, L501.9985, L100.0100 #### [facility] [address] [place], [address] Cholesterol in VLDL [Mass/Vol] 10 mg/dL Normal 5-40 [facility] Comment on above: Order Comment: 134 Performed By: #### L 500.4050, L506.1000, L501.9985, L100.0100 #### [facility] [address] [place], [address] Triglyceride [Mass/Vol] 51 mg/dL Normal [facility] Comment on above: Order Comment: 134 Result Comment: The drugs N-Acetylcysteine and Metamizole may falsely depress this assay. Normal range: <150 mg/dL Borderline High: 150-199 mg/dL High: 200-499 mg/dL Very High: >500 mg/dL Performed By: #### L 500.4050, L506.1000, L501.9985, L100.0100 #### [facility] [address] [place], [address] Vitamin D,25 Hydroxyon 10-30 Vitamin D 25-OH 22.0 ng/mL Low 30-100 [facility] Comment on above: Order Comment: 134 Result Comment: Maricarmen min D Status Deficiency: <20 ng/mL (50nmol/L) Insufficiency: 20-30 ng/mL (50-75 nmol/L) Sufficiency: 30-100 ng/mL (75-250 nmol/L) Toxicity: >100 ng/mL (>250 nmol/L) Performed By: #### L 500.4050, L506.1000, L501.9985, L100.0100 #### [facility] [address] [place], [address] CBC-Complete Blood Cnt No Di ffon 10-25-2024 Erythrocyte distribution width (RBC) [Ratio] 15.7 % High 11.6-14.6 [facility] Comment on above: Order Comment: 134 Performed By: #### L 500.4050, L506.1000, L501.9985, L100.0100 #### [facility] [address] [place], [address] Hematocrit (Bld) [Volume fraction] 39.5 % Normal 37-47 [facility] Comment on above: Order Comment: 134 Performed By: #### L 500.4050, L506.1000, L501.9985, L100.0100 #### [facility] [address] [place], [address] Hemoglobin (Bld) [Mass/Vol] 13.0 g/dL Normal 12.0-15.0 [facility] Comment on above: Order Comment: 134 Performed By: #### L 500.4050, L506.1000, L501.9985, L100.0100 #### [facility] [address] [place], [address] MCH (RBC) [Entitic mass] 29.1 pg Normal 27.0-32.0 [facility] Comment on above: Order Comment: 134 Performed By: #### L 500.4050, L506.1000, L501.9985, L100.0100 #### [facility] [address] [place], [address] MCHC (RBC) [Mass/Vol] 32.9 g/dL Normal 32-36 [facility] Comment on above: Order Comment: 134 Performed By: #### L 500.4050, L506.1000, L501.9985, L100.0100 #### [facility] [address] [place], [address] MCV (RBC) [Entitic vol] 88.4 fL Normal 81-99 [facility] Comment on above: Order Comment: 134 Performed By: #### L 500.4050, L506.1000, L501.9985, L100.0100 #### [facility] [address] [place], [address] Platelet mean volume (Bld) [Entitic vol] 11.9 fL Normal 6.2-12.0 [facility] Comment on above: Order Comment: 134 Performed By: #### L 500.4050, L506.1000, L501.9985, L100.0100 #### [facility] [address] [place], [address] Platelets (Bld) [#/Vol] 104 10*3/uL Low 150-450 [facility] Comment on above: Order Comment: 134 Performed By: #### L 500.4050, L506.1000, L501.9985, L100.0100 #### [facility] [address] [place], [address] RBC (Bld) [#/Vol] 4.47 10*6/uL Normal 4.2-5.4 [facility] Comment on above: Order Comment: 134 Performed By: #### L 500.4050, L506.1000, L501.9985, L100.0100 #### [facility] [address] [place], [address] RDW SD 51.5 fl High 35.1-43.9 [facility] Comment on above: Order Comment: 134 Performed By: #### L 500.4050, L506.1000, L501.9985, L100.0100 #### [facility] [address] [place], [address] WBC (Bld) [#/Vol] 6.3 10*3/uL Normal 4.4-11.0 [facility] Comment on above: Order Comment: 134 Performed By: #### L 500.4050, L506.1000, L501.9985, L100.0100 #### [facility] [address] [place], [address] Comprehensive Metabolic Prof [facility] 10-25-2024 Albumin [Mass/Vol] 3.8 g/dL Normal 3.4-4.8 [facility] Comment on above: Order Comment: 134 Performed By: #### L 500.4050, L506.1000, L501.9985, L100.0100 #### [facility] [address] [place], [address] Albumin/Globulin [Mass ratio] 0.9 {ratio} Normal 0.9-2.4 [facility] Comment on above: Order Comment: 134 Performed By: #### L 500.4050, L506.1000, L501.9985, L100.0100 #### [facility] [address] [place], [address] ALK PHOS 117 U/L High 35-104 [facility] Comment on above: Order Comment: 134 Performed By: #### L 500.4050, L506.1000, L501.9985, L100.0100 #### [facility] [address] [place], [address] ALT [Catalytic activity/Vol] 37 U/L High <=34 [facility] Comment on above: Order Comment: 134 Performed By: #### L 500.4050, L506.1000, L501.9985, L100.0100 #### [facility] [address] [place], [address] AST [Catalytic activity/Vol] 44 U/L High <=31 [facility] Comment on above: Order Comment: 134 Performed By: #### L 500.4050, L506.1000, L501.9985, L100.0100 #### [facility] [address] [place], [address] Bilirubin [Mass/Vol] 0.50 mg/dL Normal 0.00-1.30 [facility] Comment on above: Order Comment: 134 Performed By: #### L 500.4050, L506.1000, L501.9985, L100.0100 #### [facility] [address] [place], [address] BUN/CRE 25.5 RATIO High 10-20 [facility] Comment on above: Order Comment: 134 Performed By: #### L 500.4050, L506.1000, L501.9985, L100.0100 #### [facility] [address] [place], [address] Calcium [Mass/Vol] 9.4 mg/dL Normal 7.6-11.0 [facility] Comment on above: Order Comment: 134 Performed By: #### L 500.4050, L506.1000, L501.9985, L100.0100 #### [facility] [address] [place], [address] Chloride [Moles/Vol] 101 mmol/L Normal 98-108 [facility] Comment on above: Order Comment: 134 Performed By: #### L 500.4050, L506.1000, L501.9985, L100.0100 #### [facility] [address] [place], [address] CO2 [Moles/Vol] 23.5 mmol/L Normal 21.0-32.0 [facility] Comment on above: Order Comment: 134 Performed By: #### L 500.4050, L506.1000, L501.9985, L100.0100 #### [facility] [address] [place], [address] Creatinine [Mass/Vol] 0.93 mg/dL Normal 0.70-1.20 [facility] Comment on above: Order Comment: 134 Performed By: #### L 500.4050, L506.1000, L501.9985, L100.0100 #### [facility] [address] [place], [address] GAP 10 Normal 5-15 [facility] Comment on above: Order Comment: 134 Performed By: #### L 500.4050, L506.1000, L501.9985, L100.0100 #### [facility] [address] [place], [address] GFR/1.73 sq M.predicted among non-blacks MDRD (S/P/Bld) [Vol rate/Area] 65 mL/min/{1.73_m2} Normal >60 [facility] Comment on above: Order Comment: 134 Result Comment: mL/m in/1.73m2 CKD-EPI Creatinine Equation (2020) Performed By: #### L 500.4050, L506.1000, L501.9985, L100.0100 #### [facility] [address] [place], [address] Globulin (S) [Mass/Vol] 4.4 g/dL High 2.2-4.2 [facility] Comment on above: Order Comment: 134 Performed By: #### L 500.4050, L506.1000, L501.9985, L100.0100 #### [facility] [address] [place], [address] Glucose [Mass/Vol] 147 mg/dL High 70-99 [facility] Comment on above: Order Comment: 134 Performed By: #### L 500.4050, L506.1000, L501.9985, L100.0100 #### [facility] [address] [place], [address] Potassium [Moles/Vol] 4.7 mmol/L Normal 3.3-5.1 [facility] Comment on above: Order Comment: 134 Performed By: #### L 500.4050, L506.1000, L501.9985, L100.0100 #### [facility] [address] [place], [address] Sodium [Moles/Vol] 134 mmol/L Normal 133-145 [facility] Comment on above: Order Comment: 134 Performed By: #### L 500.4050, L506.1000, L501.9985, L100.0100 #### [facility] [address] [place], [address] T PROT 8.2 g/dL Normal 5.9-8.4 [facility] Comment on above: Order Comment: 134 Performed By: #### L 500.4050, L506.1000, L501.9985, L100.0100 #### [facility] [address] [place], [address] Urea nitrogen [Mass/Vol] 24 mg/dL High 4-19 [facility] Comment on above: Order Comment: 134 Performed By: #### L 500.4050, L506.1000, L501.9985, L100.0100 #### [facility] [address] [place], [address] Urine Cultureon 10-14-2024 [facility] Urine Culture Urine Culture Escherichia coli [place] Count 80,000-100,000 Escherichia coli: REACTION Ampicillin Islt [...] TMP SMX Islt TRANG <=20 S Normal [facility] Comment on above: Performed By: #### L 501.080 #### [facility] [place], [address] Basic Metabolic Profile (BMP )on 10-12-2024 BUN Normal 4-19 [facility] Comment on above: Result Comment: Canc elled via OM: Order cancelled - Patient discharged Performed By: #### L 500.4050, L506.1000, L501.9985, L100.0100 #### [facility] [address] [facility] [place], [address] BUN/CRE Normal 10-20 [facility] Comment on above: Result Comment: Canc elled via OM: Order cancelled - Patient discharged Performed By: #### L 500.4050, L506.1000, L501.9985, L100.0100 #### [facility] [address] [place], [address] Calcium Normal 7.6-11.0 [facility] Comment on above: Result Comment: Canc elled via OM: Order cancelled - Patient discharged Performed By: #### L 500.4050, L506.1000, L501.9985, L100.0100 #### [facility] [address] [place], [address] CL Normal 98-108 [facility] Comment on above: Result Comment: Canc elled via OM: Order cancelled - Patient discharged Performed By: #### L 500.4050, L506.1000, L501.9985, L100.0100 #### [facility] [address] [place], [address] CO2 Normal 21.0-32.0 [facility] Comment on above: Result Comment: Canc elled via OM: Order cancelled - Patient discharged Performed By: #### L 500.4050, L506.1000, L501.9985, L100.0100 #### [facility] [address] [place], [address] CREAT,SERUM Normal 0.70-1.20 [facility] Comment on above: Result Comment: Canc elled via OM: Order cancelled - Patient discharged Performed By: #### L 500.4050, L506.1000, L501.9985, L100.0100 #### [facility] [address] [place], [address] eGFR Normal >60 [facility] Comment on above: Result Comment: Canc elled via OM: Order cancelled - Patient discharged Performed By: #### L 500.4050, L506.1000, L501.9985, L100.0100 #### [facility] [address] [place], [address] GAP Normal 5-15 [facility] Comment on above: Result Comment: Canc elled via OM: Order cancelled - Patient discharged Performed By: #### L 500.4050, L506.1000, L501.9985, L100.0100 #### [facility] [address] [place], [address] GLU Normal 70-99 [facility] Comment on above: Result Comment: Canc elled via OM: Order cancelled - Patient discharged Performed By: #### L 500.4050, L506.1000, L501.9985, L100.0100 #### [facility] [address] [place], [address] Potassium Normal 3.3-5.1 [facility] Comment on above: Result Comment: Canc elled via OM: Order cancelled - Patient discharged Performed By: #### L 500.4050, L506.1000, L501.9985, L100.0100 #### [facility] [address] [place], [address] Basic Metabolic Profile (BMP) Normal 133-145 [facility] Comment on above: Result Comment: Canc elled via OM: Order cancelled - Patient discharged Performed By: #### L 500.4050, L506.1000, L501.9985, L100.0100 #### [facility] [address] [place], [address] CBC W/Diff, Automatedon 05-0 -2024 Absolute Neut Normal 2.0-7.7 [facility] Comment on above: Result Comment: Canc elled via OM: Order cancelled - Patient discharged Performed By: #### L 500.4050, L506.1000, L501.9985, L100.0100 #### [facility] [address] [place], [address] HCT Normal 37-47 [facility] Comment on above: Result Comment: Canc elled via OM: Order cancelled - Patient discharged Performed By: #### L 500.4050, L506.1000, L501.9985, L100.0100 #### [facility] [address] [place], [address] HGB Normal 12.0-15.0 [facility] Comment on above: Result Comment: Canc elled via OM: Order cancelled - Patient discharged Performed By: #### L 500.4050, L506.1000, L501.9985, L100.0100 #### [facility] [address] [place], [address] MCH Normal 27.0-32.0 [facility] Comment on above: Result Comment: Canc elled via OM: Order cancelled - Patient discharged Performed By: #### L 500.4050, L506.1000, L501.9985, L100.0100 #### [facility] [address] [place], [address] MCHC Normal 32-36 [facility] Comment on above: Result Comment: Canc elled via OM: Order cancelled - Patient discharged Performed By: #### L 500.4050, L506.1000, L501.9985, L100.0100 #### [facility] [address] [place], [address] MCV Normal 81-99 [facility] Comment on above: Result Comment: Canc elled via OM: Order cancelled - Patient discharged Performed By: #### L 500.4050, L506.1000, L501.9985, L100.0100 #### [facility] [address] [place], [address] NEUT% Normal 47-70 [facility] Comment on above: Result Comment: Canc elled via OM: Order cancelled - Patient discharged Performed By: #### L 500.4050, L506.1000, L501.9985, L100.0100 #### [facility] [address] [place], [address] PLT Normal 150-450 [facility] Comment on above: Result Comment: Canc elled via OM: Order cancelled - Patient discharged Performed By: #### L 500.4050, L506.1000, L501.9985, L100.0100 #### [facility] [address] [place], [address] RBC Normal 4.2-5.4 [facility] Comment on above: Result Comment: Canc elled via OM: Order cancelled - Patient discharged Performed By: #### L 500.4050, L506.1000, L501.9985, L100.0100 #### [facility] [address] [place], [address] RDW CV Normal 11.6-14.6 [facility] Comment on above: Result Comment: Canc elled via OM: Order cancelled - Patient discharged Performed By: #### L 500.4050, L506.1000, L501.9985, L100.0100 #### [facility] [address] [place], [address] RDW SD Normal 35.1-43.9 [facility] Comment on above: Result Comment: Canc elled via OM: Order cancelled - Patient discharged Performed By: #### L 500.4050, L506.1000, L501.9985, L100.0100 #### [facility] [address] [place], [address] WBC Normal 4.4-11.0 [facility] Comment on above: Result Comment: Canc elled via OM: Order cancelled - Patient discharged Performed By: #### L 500.4050, L506.1000, L501.9985, L100.0100 #### [facility] [address] [place], [address] Absolute lymphocyte countOrd ered By: Tyrell Page on 10-11-2024 Lymphocytes Auto (Unsp spec) [#/Vol] 1.20 10*3/uL 0.83-4.51 [facility] Absolute neutrophil countOrd ered By: Tyrell Page on 10-11-2024 Neutrophils (Bld) [#/Vol] 2.6 10*3/uL 2.0-7.7 [facility] Anion gap in Serum or Plasma Ordered By: Tyrell Page on 10-11-2024 Anion gap [Moles/Vol] 10 mmol/L 5-15 [facility] Automated lymphocyte count a s percentage of total leukocytesOrdered By: Tyrell Page on 10-11-2024 Lymphocytes/100 WBC Auto (Unsp spec) 26.8 % 19-41 [facility] BUN/creatinine ratioOrdered By: Tyrell Page on 10-11-2024 Urea nitrogen/Creatinine [Mass ratio] 28.3 mg/mg High 10-20 [facility] Basic Metabolic Profile (BMP )on 10-11-2024 BUN/CRE 28.3 RATIO High - [facility] Comment on above: Performed By: #### L 500.4050, L506.1000, L501.9985, L100.0100 #### [facility] [address] [place], [address] Calcium [Mass/Vol] 9.2 mg/dL Normal 7.6-11.0 [facility] Comment on above: Performed By: #### L 500.4050, L506.1000, L501.9985, L100.0100 #### [facility] [address] [place], [address] Chloride [Moles/Vol] 108 mmol/L Normal 98-108 [facility] Comment on above: Performed By: #### L 500.4050, L506.1000, L501.9985, L100.0100 #### [facility] [address] [place], [address] CO2 [Moles/Vol] 20.7 mmol/L Low 21.0-32.0 [facility] Comment on above: Performed By: #### L 500.4050, L506.1000, L501.9985, L100.0100 #### [facility] [address] [place], [address] Creatinine [Mass/Vol] 0.76 mg/dL Normal 0.70-1.20 [facility] Comment on above: Performed By: #### L 500.4050, L506.1000, L501.9985, L100.0100 #### [facility] [address] [place], [address] ECRCL 89.89 ml/min Normal 50-250 [facility] Comment on above: Performed By: #### L 500.4050, L506.1000, L501.9985, L100.0100 #### [facility] [address] [place], [address] GAP 10 Normal 5-15 [facility] Comment on above: Performed By: #### L 500.4050, L506.1000, L501.9985, L100.0100 #### [facility] [address] [place], [address] GFR/1.73 sq M.predicted among non-blacks MDRD (S/P/Bld) [Vol rate/Area] 84 mL/min/{1.73_m2} Normal >60 [facility] Comment on above: Result Comment: mL/m in/1.73m2 CKD-EPI Creatinine Equation (2020) Performed By: #### L 500.4050, L506.1000, L501.9985, L100.0100 #### [facility] [address] [place], [address] Glucose [Mass/Vol] 131 mg/dL High 70-99 [facility] Comment on above: Performed By: #### L 500.4050, L506.1000, L501.9985, L100.0100 #### [facility] [address] [place], [address] Potassium [Moles/Vol] 3.9 mmol/L Normal 3.3-5.1 [facility] Comment on above: Performed By: #### L 500.4050, L506.1000, L501.9985, L100.0100 #### [facility] [address] [place], [address] Sodium [Moles/Vol] 139 mmol/L Normal 133-145 [facility] Comment on above: Performed By: #### L 500.4050, L506.1000, L501.9985, L100.0100 #### [facility] [address] [place], [address] Urea nitrogen [Mass/Vol] 21 mg/dL High 4-19 [facility] Comment on above: Performed By: #### L 500.4050, L506.1000, L501.9985, L100.0100 #### [facility] [address] [place], [address] Basophil percentageOrdered B y: Tyrell Page on 10-11-2024 Basophils/100 WBC (Bld) 0.7 % 0-1 [facility] Bedside Glucoseon 10-11-2024 FINGERSTICK GLU 137 mg/dL High 74-106 [facility] Comment on above: Result Comment: ALINA ADAMSENT OF PATIENT CARE PER NURSING PROTOCOL Performed By: #### L 500.4050, L506.1000, L501.9985, L100.0100 #### [facility] [address] [place], [address] CBC W/Diff, Automatedon 050 PLT EST SLT DEC Normal ADEQ [facility] Comment on above: Performed By: #### L 500.4050, L506.1000, L501.9985, L100.0100 #### [facility] [facility] [address] [place], [address] Carbon dioxide, total [Moles /volume] in Central venous bloodOrdered By: Tyrell Page on 10-11-2024 CO2 [Moles/Vol] 20.7 mmol/L Low 21.0-32.0 [facility] Chloride assayOrdered By: Arabella Page on 10-11-2024 Chloride [Moles/Vol] 108 mmol/L 98-108 [facility] Eosinophil percentageOrdered By: Tyrell Page on 10-11-2024 Eosinophils/100 WBC (Bld) 5.1 % High 0-5 [facility] Erythrocyte distribution wid th ratioOrdered By: Tyrell Page on 10-11-2024 Erythrocyte distribution width (RBC) [Ratio] 16.0 % High 11.6-14.6 [facility] Erythrocyte distribution wid th standard deviationOrdered By: Tyrell Page on 10-11-2024 Erythrocyte distribution width (RBC) [Ratio] 50.8 fl High 35.1-43.9 [facility] Glomerular filtration rate ( GFR) estimation/1.73 sq m using serum, plasma, or whole bOrdered By: Tyrell Page on 10-11-2024 GFR/1.73 sq M.predicted among non-blacks MDRD (S/P/Bld) [Vol rate/Area] 84 mL/min/{1.73_m2} >60 [facility] Comment on above: mL/min/1.73m2 CKD-EP I Creatinine Equation (2020) [facility] deOrdered By: Tyrell Page on 10-11-2024 Glucose [Mass/Vol] 137 mg/dL High 74-106 [facility] Comment on above: MANAGEMENT OF PATIEN T CARE PER NURSING PROTOCOL Hematocrit Auto (Bld) [Volum e fraction]Ordered By: Tyrell Page on 10-11-2024 Hematocrit (Bld) [Volume fraction] 34.0 % Low 37-47 [facility] Hemoglobin measurementOrdere d By: Tyrell Page on 10-11-2024 Hemoglobin (Bld) [Mass/Vol] 11.3 g/dL Low 12.0-15.0 [facility] Immature granulocytes/100 WB C Auto (Bld)Ordered By: Tyrell Page on 10-11-2024 Immature granulocytes/100 WBC (Bld) 0.200 % 0.0-0.9 [facility] Comment on above: IG% - Immature Granu locytes (promyelocytes, myelocytes and metamyelocytes) > 1% indicates that a LEFT SHIFT is Present. MCV (mean corpuscular volume ) determinationOrdered By: Tyrell Page on 10-11-2024 MCV (RBC) [Entitic vol] 86.7 fL 81-99 [facility] Magnesiumon 10-11-2024 Magnesium [Mass/Vol] 2.1 mg/dL Normal 1.5-2.2 [facility] Comment on above: Performed By: #### L 506.0200 #### [facility] [address] [place], [place], [id number] Magnesium measurement (mass/ volume)Ordered By: Tyrell Page on 10-11-2024 Magnesium (Unsp spec) [Mass/Vol] 2.1 mg/dL 1.5-2.2 [facility] Mean corpuscular hemoglobin (MCH) determinationOrdered By: Tyrell Page on 10-11-2024 MCH (RBC) [Entitic mass] 28.8 pg 27.0-32.0 [facility] Mean corpuscular hemoglobin concentration (MCHC) determinationOrdered By: Tyrell Page on 10-11-2024 MCHC (RBC) [Mass/Vol] 33.2 g/dL 32-36 [facility] Mean platelet volume determi nationOrdered By: Tyrell Page on 10-11-2024 Platelet mean volume (Bld) [Entitic vol] 11.1 fL 6.2-12.0 [facility] Monocyte percentageOrdered B y: Tyrell Page on 10-11-2024 Monocytes/100 WBC (Bld) 9.8 % 0-10 [facility] Neutrophil percentageOrdered By: Tyrell Page on 10-11-2024 Neutrophils/100 WBC (Bld) 57.4 % 47-70 [facility] Nucleated red blood cell per centageOrdered By: Tyrell Page on 10-11-2024 Nucleated RBC/100 WBC (Bld) [Ratio] 0 % 0-5 [facility] Phosphoruson 10-11-2024 Phosphate [Mass/Vol] 3.7 mg/dL Normal 2.7-4.5 [facility] Comment on above: Performed By: #### L 506.0200 #### [facility] [address] [place], [place], [id number] Platelet countOrdered By: Arabella Page on 10-11-2024 Platelets (Bld) [#/Vol] 95 10*3/uL Low 150-450 [facility] Platelet estimateOrdered By: Tyrell Page on 10-11-2024 Platelets LM Ql (Bld) SLT DEC ADEQ [facility] Potassium measurement (mass/ volume)Ordered By: Tyrell Page on 10-11-2024 Potassium (Unsp spec) [Mass/Vol] 3.9 mmol/L 3.3-5.1 [facility] RBC Auto (Bld) [#/Vol]Ordere d By: Tyrell Page on 10-11-2024 RBC (Bld) [#/Vol] 3.92 10*6/uL Low 4.2-5.4 [facility] Serum creatinine measurement (mass/volume)Ordered By: Tyrell Page on 10-11-2024 Creatinine [Mass/Vol] 0.76 mg/dL 0.70-1.20 [facility] Serum glucose measurement (m ass/volume)Ordered By: Tyrell Page on 10-11-2024 Glucose [Mass/Vol] 131 mg/dL High 70-99 [facility] Serum or plasma calcium kim urement (mass/volume)Ordered By: Tyrell Page on 10-11-2024 Calcium [Mass/Vol] 9.2 mg/dL 7.6-11.0 [facility] Serum or plasma urea nitroge n measurement (mass/volume)Ordered By: Tyrell Page on 10-11-2024 Urea nitrogen [Mass/Vol] 21 mg/dL High 4-19 [facility] Sodium levelOrdered By: Nikunj Page on 10-11-2024 Sodium [Moles/Vol] 139 mmol/L 133-145 [facility] White blood cell (WBC) count Ordered By: Tyrell Page on 10-11-2024 WBC (Bld) [#/Vol] 4.5 10*3/uL 4.4-11.0 [facility] Bedside Glucoseon 10-10-2024 FINGERSTICK GLU 159 mg/dL High 74-106 [facility] Comment on above: Result Comment: ALINA GABRIEL OF PATIENT CARE PER NURSING PROTOCOL Performed By: #### L 500.4050, L506.1000, L501.9985, L100.0100 #### [facility] [address] [place], [address] FINGERSTICK GLU 196 mg/dL High 74-106 [facility] Comment on above: Result Comment: ALINA GEMENT OF PATIENT CARE PER NURSING PROTOCOL Performed By: #### L 500.4050, L506.1000, L501.9985, L100.0100 #### [facility] [address] [place], [address] FINGERSTICK GLU 165 mg/dL High 74-106 [facility] Comment on above: Result Comment: ALINA GEMENT OF PATIENT CARE PER NURSING PROTOCOL Performed By: #### L 501.080 #### [facility] [address] [place], [address] FINGERSTICK GLU 159 mg/dL High -106 [facility] Comment on above: Result Comment: ALINA GEMENT OF PATIENT CARE PER NURSING PROTOCOL Performed By: #### L 500.4050, L506.1000, L501.9985, L100.0100 #### [facility] [address] [place], [address] FINGERSTICK GLU 148 mg/dL High 74-106 [facility] Comment on above: Result Comment: ALINA GEMENT OF PATIENT CARE PER NURSING PROTOCOL Performed By: #### L 501.080 #### [facility] [address] [place], [address] Bilirubin, totalOrdered By: Missael Lomeli on 10-10-2024 Bilirubin [Mass/Vol] 0.68 mg/dL 0.00-1.30 [facility] CBC W/Diff, Automatedon 050 Absolute Lymph 1.03 X10 3/uL Normal 0.83-4.51 [facility] Comment on above: Performed By: #### L 506.0200 #### [facility] [address] [place], [address] Absolute Neut 3.4 X10 3/uL Normal 2.0-7.7 [facility] Comment on above: Performed By: #### L 506.0200 #### [facility] [address] [place], [address] Basophils/100 WBC (Bld) 0.6 % Normal 0-1 [facility] Comment on above: Performed By: #### L 506.0200 #### [facility] [address] [place], [address] Eosinophils/100 WBC (Bld) 5.1 % High 0-5 [facility] Comment on above: Performed By: #### L 506.0200 #### [facility] [address] [place], [address] Erythrocyte distribution width (RBC) [Ratio] 15.9 % High 11.6-14.6 [facility] Comment on above: Performed By: #### L 506.0200 #### [facility] [address] [place], [address] Hematocrit (Bld) [Volume fraction] 37.6 % Normal 37-47 [facility] Comment on above: Performed By: #### L 506.0200 #### [facility] [address] [place], [address] Hemoglobin (Bld) [Mass/Vol] 12.3 g/dL Normal 12.0-15.0 [facility] Comment on above: Performed By: #### L 506.0200 #### [facility] [address] [place], [address] IG% 0.200 Normal 0.0-0.9 [facility] Comment on above: Result Comment: IG% - Immature Granulocytes (promyelocytes, myelocytes and metamyelocytes) > 1% indicates that a LEFT SHIFT is Present. Performed By: #### L 506.0200 #### [facility] [address] [place], [address] Lymphocytes/100 WBC (Bld) 19.6 % Normal 19-41 [facility] Comment on above: Performed By: #### L 506.0200 #### [facility] [address] [place], [address] MCH (RBC) [Entitic mass] 28.8 pg Normal 27.0-32.0 [facility] Comment on above: Performed By: #### L 506.0200 #### [facility] [address] [place], [address] MCHC (RBC) [Mass/Vol] 32.7 g/dL Normal 32-36 [facility] Comment on above: Performed By: #### L 506.0200 #### [facility] [address] [place], [address] MCV (RBC) [Entitic vol] 88.1 fL Normal 81-99 [facility] Comment on above: Performed By: #### L 506.0200 #### [facility] [address] [place], [address] Monocytes/100 WBC (Bld) 9.1 % Normal 0-10 [facility] Comment on above: Performed By: #### L 506.0200 #### [facility] [address] [place], [address] Neutrophils/100 WBC (Bld) 65.4 % Normal 47-70 [facility] Comment on above: Performed By: #### L 506.0200 #### [facility] [address] [place], [address] Nucleated RBC (Bld) [#/Vol] 0 10*3/uL Normal 0-5 [facility] Comment on above: Performed By: #### L 506.0200 #### [facility] [address] [place], [address] Platelet mean volume (Bld) [Entitic vol] 11.7 fL Normal 6.2-12.0 [facility] Comment on above: Performed By: #### L 506.0200 #### [facility] [address] [place], [address] Platelets (Bld) [#/Vol] 100 10*3/uL Low 150-450 [facility] Comment on above: Performed By: #### L 506.0200 #### [facility] [address] [place], [address] RBC (Bld) [#/Vol] 4.27 10*6/uL Normal 4.2-5.4 [facility] Comment on above: Performed By: #### L 506.0200 #### [facility] [address] [place], [address] RDW SD 51.4 fl High 35.1-43.9 [facility] Comment on above: Performed By: #### L 506.0200 #### [facility] [address] [place], [address] WBC (Bld) [#/Vol] 5.3 10*3/uL Normal 4.4-11.0 [facility] Comment on above: Performed By: #### L 506.0200 #### [facility] [address] [place], [address] Calculated very low density lipoprotein (VLDL) cholesterol measurementOrdered By: Missael Lomeli on 10-10-2024 Calculated very low density lipoprotein (VLDL) cholesterol measurement 16 mg/dL 5-40 [facility] Comprehensive Metabolic Prof ilon 10-10-2024 Albumin [Mass/Vol] 3.5 g/dL Normal 3.4-4.8 [facility] Comment on above: Performed By: #### L 503.0106 #### [facility] [address] [place], [address] Albumin/Globulin [Mass ratio] 1.0 {ratio} Normal 0.9-2.4 [facility] Comment on above: Performed By: #### L 503.0106 #### [facility] [address] [place], [address] ALK PHOS 122 U/L High 35-104 [facility] Comment on above: Performed By: #### L 503.0106 #### [facility] [address] [place], [address] ALT [Catalytic activity/Vol] 23 U/L Normal <=34 [facility] Comment on above: Performed By: #### L 503.0106 #### [facility] [address] [place], [address] AST [Catalytic activity/Vol] 37 U/L High <=31 [facility] Comment on above: Result Comment: Hemo lysis present, Results??could be affected. ?? Performed By: #### L 503.0106 #### [facility] [address] [place], [address] Bilirubin [Mass/Vol] 0.68 mg/dL Normal 0.00-1.30 [facility] Comment on above: Performed By: #### L 503.0106 #### [facility] [address] [place], [address] BUN/CRE 25.4 RATIO High 10-20 [facility] Comment on above: Performed By: #### L 503.0106 #### [facility] [address] [place], [address] Calcium [Mass/Vol] 8.9 mg/dL Normal 7.6-11.0 [facility] Comment on above: Performed By: #### L 503.0106 #### [facility] [address] [place], [address] Chloride [Moles/Vol] 106 mmol/L Normal 98-108 [facility] Comment on above: Performed By: #### L 503.0106 #### [facility] [address] [place], [address] CO2 [Moles/Vol] 19.0 mmol/L Low 21.0-32.0 [facility] Comment on above: Performed By: #### L 503.0106 #### [facility] [address] [place], [address] Creatinine [Mass/Vol] 0.78 mg/dL Normal 0.70-1.20 [facility] Comment on above: Performed By: #### L 503.0106 #### [facility] [address] [place], [address] ECRCL 88.83 ml/min Normal 50-250 [facility] Comment on above: Performed By: #### L 503.0106 #### [facility] [address] [place], [address] GAP 13 Normal 5-15 [facility] Comment on above: Performed By: #### L 503.0106 #### [facility] [address] [place], [address] GFR/1.73 sq M.predicted among non-blacks MDRD (S/P/Bld) [Vol rate/Area] 81 mL/min/{1.73_m2} Normal >60 [facility] Comment on above: Result Comment: mL/m in/1.73m2 CKD-EPI Creatinine Equation (2020) Performed By: #### L 503.0106 #### [facility] [address] [place], [address] Globulin (S) [Mass/Vol] 3.7 g/dL Normal 2.2-4.2 [facility] Comment on above: Performed By: #### L 503.0106 #### [facility] [address] [place], [address] Glucose [Mass/Vol] 151 mg/dL High 70-99 [facility] Comment on above: Performed By: #### L 503.0106 #### [facility] [address] [place], [address] Potassium [Moles/Vol] 4.3 mmol/L Normal 3.3-5.1 [facility] Comment on above: Result Comment: Hemo lysis present, Results??could be affected. ?? Performed By: #### L 503.0106 #### [facility] [address] [place], [address] Sodium [Moles/Vol] 138 mmol/L Normal 133-145 [facility] Comment on above: Performed By: #### L 503.0106 #### [facility] [address] [place], [address] T PROT 7.2 g/dL Normal 5.9-8.4 [facility] Comment on above: Performed By: #### L 503.0106 #### [facility] [address] [place], [address] Urea nitrogen [Mass/Vol] 20 mg/dL High 4-19 [facility] Comment on above: Performed By: #### L 503.0106 #### [facility] [address] [place], [address] Folate [Moles/volume] in Ser um or PlasmaOrdered By: Missael Lomeli on 10-10-2024 Folate [Moles/Vol] 7.20 ng/mL 4.60-34.80 [facility] Comment on above: Hemolysis, Results w ill be affected, Requires Recollection. Folates,Serum (Folic Acid)on 10-10-2024 FOLATES,SERUM 7.20 ng/mL Normal 4.60-34.80 [facility] Comment on above: Order Comment: N Result Comment: Hemo lysis, Results will be affected, Requires Recollection. Performed By: #### L 506.0200 #### [facility] [address] [place], [place], [id number] Hemoglobin A1con 10-10-2024 HbA1c (Bld) [Mass fraction] 7.2 % High <=5.6 [facility] Comment on above: Result Comment: Norm al < 5.7 % Prediabetic 5.7 - 6.4 % Diabetic >or= 6.5 % Please note range changes. Performed By: #### L 503.0106 #### [facility] [address] [place], [place], [id number] LDL calc ser/plasOrdered By: Missael Lomeli on 10-10-2024 Cholesterol in LDL [Mass/Vol] 31 mg/dL [facility] Comment on above: Nagxdwdmox=583-705 m g/dL & Higher Apqo=933 mg/dL or greater Laboratory - Chemistry and C hemistry - challengeOrdered By: Missael Lomeli on 10-10-2024 AST [Catalytic activity/Vol] 37 U/L High <32 [facility] Comment on above: Hemolysis present, R esults could be affected. Lipid Profileon 10-10-2024 CHOL:HDL 1.84 Normal [facility] Comment on above: Performed By: #### L 506.0200 #### [facility] [address] [place], [place], [id number] (011) Cholesterol [Mass/Vol] 103 mg/dL Normal <=200 [facility] Comment on above: Result Comment: Chol esterol level, Desirable <200 mg/dL Borderline high cholesterol 200-239 mg/dL High cholesterol >=240 mg/dL Recommendations of the NCEP Adult Treatment Panel for the following risk-cutoff thresholds for the [place] population. Performed By: #### L 506.0200 #### [facility] [address] [place], [place], [id number] (052) Cholesterol in HDL [Mass/Vol] 56 mg/dL Normal [facility] Comment on above: Result Comment: Linda onal Cholesterol Education Program (NCEP) guidelines: <40 mg/dL: Low HDL-cholesterol (major risk factor for CHD) >= 60 mg/dL: High HDL-cholesterol (negative risk factor for CHD) HDL-cholesterol is affected by a number of factors, e.g. smoking, exercise, hormones, sex and age. Performed By: #### L 506.0200 #### [facility] [address] [place], [address] Cholesterol in LDL [Mass/Vol] 31 mg/dL Normal [facility] Comment on above: Result Comment: Bord blhlsq=875-404 mg/dL Higher Ojhm=365 mg/dL or greater Performed By: #### L 506.0200 #### [facility] [address] [place], [address] Cholesterol in VLDL [Mass/Vol] 16 mg/dL Normal 5-40 [facility] Comment on above: Performed By: #### L 506.0200 #### [facility] [address] [place], [address] Triglyceride [Mass/Vol] 82 mg/dL Normal [facility] Comment on above: Result Comment: The drugs N-Acetylcysteine and Metamizole may falsely depress this assay. Normal range: <150 mg/dL Borderline High: 150-199 mg/dL High: 200-499 mg/dL Very High: >500 mg/dL Performed By: #### L 506.0200 #### [facility] [address] [place], [address] Phosphoruson 10-10-2024 Phosphate [Mass/Vol] 3.3 mg/dL Normal 2.7-4.5 [facility] Comment on above: Performed By: #### L 506.0200 #### [facility] [address] [place], [address] Screening total cholesterol/ high density lipoprotein (HDL) cholesterol ratioOrdered By: Missael Lomeli on 10-10-2024 Cholesterol.total/Cho lesterol in HDL [Mass ratio] 1.84 {ratio} [facility] Serum globulin measurementOr dered By: Missael Lomeli on 10-10-2024 Globulin (S) [Mass/Vol] 3.7 g/dL 2.2-4.2 [facility] Serum or plasma alanine burnette otransferase (ALT) measurementOrdered By: Missael Lomeli on 10-10-2024 ALT [Catalytic activity/Vol] 23 U/L <35 [facility] Serum or plasma albumin kim urement (mass/volume)Ordered By: Missael Lomeli on 10-10-2024 Albumin [Mass/Vol] 3.5 g/dL 3.4-4.8 [facility] Serum or plasma albumin/glob ulin mass ratioOrdered By: Missael Lomeli on 10-10-2024 Albumin/Globulin [Mass ratio] 1.0 {ratio} 0.9-2.4 [facility] Serum or plasma alkaline regina sphatase measurementOrdered By: Missael Lomeli on 10-10-2024 ALP [Catalytic activity/Vol] 122 U/L High 35-104 [facility] Serum or plasma cholesterol in HDL measurement (mass/volume)Ordered By: Missael Lomeli on 10-10-2024 Cholesterol in HDL [Mass/Vol] 56 mg/dL >40 [facility] Comment on above: National Cholesterol Education Program (NCEP) guidelines:<40 mg/dL: Low HDL-cholesterol (major risk factor for CHD)>= 60 mg/dL: High HDL-cholesterol (negative risk factor for CHD)HDL-cholesterol is affected by a number of factors, e.g. smoking, exercise, hormones, sex and age. Serum or plasma cholesterol measurement (mass/volume)Ordered By: Missael Lomeli on 10-10-2024 Cholesterol [Mass/Vol] 103 mg/dL <201 [facility] Comment on above: Cholesterol level, D esirable <200 mg/dLBorderline high cholesterol 200-239 mg/dLHigh cholesterol >=240 mg/dLRecommendations of the NCEP Adult Treatment Panel for the following risk-cutoff thresholds for the [place] population. Total proteinOrdered By: Enrrique Lomeli on 10-10-2024 Protein [Mass/Vol] 7.2 g/dL 5.9-8.4 [facility] Triglycerides measurementOrd ered By: Missael Lomeli on 10-10-2024 Triglyceride [Mass/Vol] 82 mg/dL <199 [facility] Comment on above: The drugs N-Acetylcy steine and Metamizole may falsely depress this assay. Normal range: <150 mg/dLBorderline High: 150-199 mg/dLHigh: 200-499 mg/dLVery High: >500 mg/dL Absolute lymphocyte countOrd ered By: Shayna Malhotra on 10-09-2024 Lymphocytes Auto (Unsp spec) [#/Vol] 0.97 10*3/uL 0.83-4.51 [facility] Absolute neutrophil countOrd ered By: Dany Richardson on 10-09-2024 Neutrophils (Bld) [#/Vol] 4.9 10*3/uL 2.0-7.7 [facility] Absolute neutrophil countOrd ered By: Shayna Malhotra on 10-09-2024 Neutrophils (Bld) [#/Vol] 4.4 10*3/uL 2.0-7.7 [facility] Alcohol, Blood (Medical)-Ser umon 10-09-2024 SERUM ETOH < 10.1 Normal <=10.0 [facility] Comment on above: Result Comment: This test is for medical purposes only. The legal definition of intoxication varies according to local law. Performed By: #### L 503.0106 #### [facility] [place], [address] Amorphous sediment detection in urine sediment by light microscopyOrdered By: Dany Richardson on 10-09-2024 Amorphous sediment LM Ql (Urine sed) 1+ [facility] Amphetamine detection with 1 000 ng/mL as cutoffOrdered By: Missael Lomeli on 10-09-2024 Amphetamines Screen method >1000 ng/mL Ql (U) Negative < 200 ng/mL [facility] Anion gap in Serum or Plasma Ordered By: Dany Richardson on 10-09-2024 Anion gap [Moles/Vol] 11 mmol/L 10-18 [facility] Anion gap in Serum or Plasma Ordered By: Shayna Malhotra on 10-09-2024 Anion gap [Moles/Vol] 12 mmol/L 10-18 [facility] Automated lymphocyte count a s percentage of total leukocytesOrdered By: Shayna Malhotra on 10-09-2024 Lymphocytes/100 WBC Auto (Unsp spec) 16.1 % Low 19-41 [facility] BUN/creatinine ratioOrdered By: Dany Richardson on 10-09-2024 Urea nitrogen/Creatinine [Mass ratio] 26.6 mg/mg High 10- [facility] BUN/creatinine ratioOrdered By: Shayna Malhotra on 10-09-2024 Urea nitrogen/Creatinine [Mass ratio] 25.9 mg/mg High - [facility] Basophil percentageOrdered B y: Dany Richardson on 10-09-2024 Basophils/100 WBC (Bld) 0.4 % 0-1 [facility] Basophil percentageOrdered B y: Shayna Malhotra on 10-09-2024 Basophils/100 WBC (Bld) 0.5 % 0-1 [facility] Bilirubin Test strip Ql (U)O rdered By: Dany Richardson on 10-09-2024 Bilirubin Ql (U) Negative Negative [facility] Bilirubin, totalOrdered By: Dany Richardson on 10-09-2024 Bilirubin [Mass/Vol] 0.67 mg/dL 0.00-1.30 [facility] Bilirubin, totalOrdered By: Shayna Malhotra on 10-09-2024 Bilirubin [Mass/Vol] 0.62 mg/dL 0.00-1.30 [facility] CBC W/Diff, Automatedon Absolute Lymph 1.11 X10 3/uL Normal 0.83-4.51 [facility] Comment on above: Performed By: #### L 500.4050, L506.1000, L501.9985, L100.0100 #### [facility] [address] [place], [address] Absolute Neut 4.9 X10 3/uL Normal 2.0-7.7 [facility] Comment on above: Performed By: #### L 500.4050, L506.1000, L501.9985, L100.0100 #### [facility] [address] [place], [address] Basophils/100 WBC (Bld) 0.4 % Normal 0-1 [facility] Comment on above: Performed By: #### L 500.4050, L506.1000, L501.9985, L100.0100 #### [facility] [address] [place], [address] Eosinophils/100 WBC (Bld) 2.5 % Normal 0-5 [facility] Comment on above: Performed By: #### L 500.4050, L506.1000, L501.9985, L100.0100 #### [facility] [address] [place], [address] Erythrocyte distribution width (RBC) [Ratio] 15.9 % High 11.6-14.6 [facility] Comment on above: Performed By: #### L 500.4050, L506.1000, L501.9985, L100.0100 #### [facility] [address] [place], [address] Hematocrit (Bld) [Volume fraction] 40.8 % Normal 37-47 [facility] Comment on above: Performed By: #### L 500.4050, L506.1000, L501.9985, L100.0100 #### [facility] [address] [place], [address] Hemoglobin (Bld) [Mass/Vol] 13.5 g/dL Normal 12.0-15.0 [facility] Comment on above: Performed By: #### L 500.4050, L506.1000, L501.9985, L100.0100 #### [facility] [address] [place], [address] IG% 0.400 Normal 0.0-0.9 [facility] Comment on above: Result Comment: IG% - Immature Granulocytes (promyelocytes, myelocytes and metamyelocytes) > 1% indicates that a LEFT SHIFT is Present. Performed By: #### L 500.4050, L506.1000, L501.9985, L100.0100 #### [facility] [address] [place], [address] Lymphocytes/100 WBC (Bld) 16.3 % Low 19-41 [facility] Comment on above: Performed By: #### L 500.4050, L506.1000, L501.9985, L100.0100 #### [facility] [address] [place], [address] MCH (RBC) [Entitic mass] 28.9 pg Normal 27.0-32.0 [facility] Comment on above: Performed By: #### L 500.4050, L506.1000, L501.9985, L100.0100 #### [facility] [address] [place], [address] MCHC (RBC) [Mass/Vol] 33.1 g/dL Normal 32-36 [facility] Comment on above: Performed By: #### L 500.4050, L506.1000, L501.9985, L100.0100 #### [facility] [address] [place], [address] MCV (RBC) [Entitic vol] 87.4 fL Normal 81-99 [facility] Comment on above: Performed By: #### L 500.4050, L506.1000, L501.9985, L100.0100 #### [facility] [address] [place], [address] Monocytes/100 WBC (Bld) 8.3 % Normal 0-10 [facility] Comment on above: Performed By: #### L 500.4050, L506.1000, L501.9985, L100.0100 #### [facility] [address] [place], [address] Neutrophils/100 WBC (Bld) 72.1 % High 47-70 [facility] Comment on above: Performed By: #### L 500.4050, L506.1000, L501.9985, L100.0100 #### [facility] [address] [place], [address] Nucleated RBC (Bld) [#/Vol] 0 10*3/uL Normal 0-5 [facility] Comment on above: Performed By: #### L 500.4050, L506.1000, L501.9985, L100.0100 #### [facility] [address] [place], [address] Platelet mean volume (Bld) [Entitic vol] 11.8 fL Normal 6.2-12.0 [facility] Comment on above: Performed By: #### L 500.4050, L506.1000, L501.9985, L100.0100 #### [facility] [address] [place], [address] Platelets (Bld) [#/Vol] 106 10*3/uL Low 150-450 [facility] Comment on above: Performed By: #### L 500.4050, L506.1000, L501.9985, L100.0100 #### [facility] [address] [place], [address] RBC (Bld) [#/Vol] 4.67 10*6/uL Normal 4.2-5.4 [facility] Comment on above: Performed By: #### L 500.4050, L506.1000, L501.9985, L100.0100 #### [facility] [address] [place], [address] RDW SD 51.0 fl High 35.1-43.9 [facility] Comment on above: Performed By: #### L 500.4050, L506.1000, L501.9985, L100.0100 #### [facility] [address] [place], [address] WBC (Bld) [#/Vol] 6.8 10*3/uL Normal 4.4-11.0 [facility] Comment on above: Performed By: #### L 500.4050, L506.1000, L501.9985, L100.0100 #### [facility] [address] [place], [address] Absolute Lymph 0.97 X10 3/uL Normal 0.83-4.51 [facility] Comment on above: Order Comment: 134 Performed By: #### L 503.0106 #### [facility] [address] [place], [address] Absolute Neut 4.4 X10 3/uL Normal 2.0-7.7 [facility] Comment on above: Order Comment: 134 Performed By: #### L 503.0106 #### [facility] [address] [place], [address] Basophils/100 WBC (Bld) 0.5 % Normal 0-1 [facility] Comment on above: Order Comment: 134 Performed By: #### L 503.0106 #### [facility] [address] [place], [address] Eosinophils/100 WBC (Bld) 1.2 % Normal 0-5 [facility] Comment on above: Order Comment: 134 Performed By: #### L 503.0106 #### [facility] [address] [place], [address] Erythrocyte distribution width (RBC) [Ratio] 15.7 % High 11.6-14.6 [facility] Comment on above: Order Comment: 134 Performed By: #### L 503.0106 #### [facility] [address] [place], [address] Hematocrit (Bld) [Volume fraction] 40.9 % Normal 37-47 [facility] Comment on above: Order Comment: 134 Performed By: #### L 503.0106 #### [facility] [address] [place], [address] Hemoglobin (Bld) [Mass/Vol] 13.5 g/dL Normal 12.0-15.0 [facility] Comment on above: Order Comment: 134 Performed By: #### L 503.0106 #### [facility] [address] [place], [address] IG% 0.300 Normal 0.0-0.9 [facility] Comment on above: Order Comment: 134 Result Comment: IG% - Immature Granulocytes (promyelocytes, myelocytes and metamyelocytes) > 1% indicates that a LEFT SHIFT is Present. Performed By: #### L 503.0106 #### [facility] [address] [place], [address] Lymphocytes/100 WBC (Bld) 16.1 % Low 19-41 [facility] Comment on above: Order Comment: 134 Performed By: #### L 503.0106 #### [facility] [address] [place], [address] MCH (RBC) [Entitic mass] 28.8 pg Normal 27.0-32.0 [facility] Comment on above: Order Comment: 134 Performed By: #### L 503.0106 #### [facility] [address] [place], [address] MCHC (RBC) [Mass/Vol] 33.0 g/dL Normal 32-36 [facility] Comment on above: Order Comment: 134 Performed By: #### L 503.0106 #### [facility] [address] [place], [address] MCV (RBC) [Entitic vol] 87.4 fL Normal 81-99 [facility] Comment on above: Order Comment: 134 Performed By: #### L 503.0106 #### [facility] [address] [place], [address] Monocytes/100 WBC (Bld) 8.4 % Normal 0-10 [facility] Comment on above: Order Comment: 134 Performed By: #### L 503.0106 #### [facility] [address] [place], [address] Neutrophils/100 WBC (Bld) 73.5 % High 47-70 [facility] Comment on above: Order Comment: 134 Performed By: #### L 503.0106 #### [facility] [address] [place], [address] Nucleated RBC (Bld) [#/Vol] 0 10*3/uL Normal 0-5 [facility] Comment on above: Order Comment: 134 Performed By: #### L 503.0106 #### [facility] [address] [place], [address] Platelet mean volume (Bld) [Entitic vol] 10.8 fL Normal 6.2-12.0 [facility] Comment on above: Order Comment: 134 Performed By: #### L 503.0106 #### [facility] [address] [place], [address] Platelets (Bld) [#/Vol] 107 10*3/uL Low 150-450 [facility] Comment on above: Order Comment: 134 Performed By: #### L 503.0106 #### [facility] [address] [place], [address] RBC (Bld) [#/Vol] 4.68 10*6/uL Normal 4.2-5.4 [facility] Comment on above: Order Comment: 134 Performed By: #### L 503.0106 #### [facility] [address] [place], [address] RDW SD 50.2 fl High 35.1-43.9 [facility] Comment on above: Order Comment: 134 Performed By: #### L 503.0106 #### [facility] [address] [place], [address] WBC (Bld) [#/Vol] 6.0 10*3/uL Normal 4.4-11.0 [facility] Comment on above: Order Comment: 134 Performed By: #### L 503.0106 #### [facility] [address] [place], [address] CRPon 10-09-2024 C-REACTIVE PROT 5.92 mg/L High 0.0-3.0 [facility] Comment on above: Performed By: #### L 503.0106 #### [facility] [address] [place], [address] Carbon dioxide, total [Moles /volume] in Central venous bloodOrdered By: Dany Richardson on 10-09-2024 CO2 [Moles/Vol] 21.0 mmol/L 21.0-32.0 [facility] Carbon dioxide, total [Moles /volume] in Central venous bloodOrdered By: Shayna Malhotra on 10-09-2024 CO2 [Moles/Vol] 22.6 mmol/L 21.0-32.0 [facility] Chloride assayOrdered By: Nolan Richardson on 10-09-2024 Chloride [Moles/Vol] 106 mmol/L 98-108 [facility] Chloride assayOrdered By: Maryanne Malhotra on 10-09-2024 Chloride [Moles/Vol] 104 mmol/L 98-108 [facility] Comprehensive Metabolic Prof ilon 10-09-2024 Albumin [Mass/Vol] 3.8 g/dL Normal 3.4-4.8 [facility] Comment on above: Performed By: #### L 500.4050, L506.1000, L501.9985, L100.0100 #### [facility] [address] [place], [address] Albumin/Globulin [Mass ratio] 0.8 {ratio} Low 0.9-2.4 [facility] Comment on above: Performed By: #### L 500.4050, L506.1000, L501.9985, L100.0100 #### [facility] [address] [place], [address] ALK PHOS 135 U/L High 35-104 [facility] Comment on above: Performed By: #### L 500.4050, L506.1000, L501.9985, L100.0100 #### [facility] [address] [place], [address] ALT [Catalytic activity/Vol] 23 U/L Normal <=34 [facility] Comment on above: Performed By: #### L 500.4050, L506.1000, L501.9985, L100.0100 #### [facility] [address] [place], [address] AST [Catalytic activity/Vol] 40 U/L High <=31 [facility] Comment on above: Result Comment: Hemo lysis present, Results??could be affected. ?? Performed By: #### L 500.4050, L506.1000, L501.9985, L100.0100 #### [facility] [address] [place], [address] Bilirubin [Mass/Vol] 0.67 mg/dL Normal 0.00-1.30 [facility] Comment on above: Performed By: #### L 500.4050, L506.1000, L501.9985, L100.0100 #### [facility] [address] [place], [address] BUN/CRE 26.6 RATIO High 10-20 [facility] Comment on above: Performed By: #### L 500.4050, L506.1000, L501.9985, L100.0100 #### [facility] [address] [place], [address] Calcium [Mass/Vol] 9.7 mg/dL Normal 7.6-11.0 [facility] Comment on above: Performed By: #### L 500.4050, L506.1000, L501.9985, L100.0100 #### [facility] [address] [place], [address] Chloride [Moles/Vol] 106 mmol/L Normal 98-108 [facility] Comment on above: Performed By: #### L 500.4050, L506.1000, L501.9985, L100.0100 #### [facility] [address] [place], [address] CO2 [Moles/Vol] 21.0 mmol/L Normal 21.0-32.0 [facility] Comment on above: Performed By: #### L 500.4050, L506.1000, L501.9985, L100.0100 #### [facility] [address] [place], [address] Creatinine [Mass/Vol] 0.88 mg/dL Normal 0.70-1.20 [facility] Comment on above: Performed By: #### L 500.4050, L506.1000, L501.9985, L100.0100 #### [facility] [address] [place], [address] ECRCL 81.27 ml/min Normal 50-250 [facility] Comment on above: Performed By: #### L 500.4050, L506.1000, L501.9985, L100.0100 #### [facility] [address] [place], [address] GAP 11 Normal 5-15 [facility] Comment on above: Performed By: #### L 500.4050, L506.1000, L501.9985, L100.0100 #### [facility] [address] [place], [address] GFR/1.73 sq M.predicted among non-blacks MDRD (S/P/Bld) [Vol rate/Area] 70 mL/min/{1.73_m2} Normal >60 [facility] Comment on above: Result Comment: mL/m in/1.73m2 CKD-EPI Creatinine Equation (2020) Performed By: #### L 500.4050, L506.1000, L501.9985, L100.0100 #### [facility] [address] [place], [address] Globulin (S) [Mass/Vol] 4.6 g/dL High 2.2-4.2 [facility] Comment on above: Performed By: #### L 500.4050, L506.1000, L501.9985, L100.0100 #### [facility] [address] [place], [address] Glucose [Mass/Vol] 138 mg/dL High 70-99 [facility] Comment on above: Performed By: #### L 500.4050, L506.1000, L501.9985, L100.0100 #### [facility] [address] [place], [address] Potassium [Moles/Vol] 4.5 mmol/L Normal 3.3-5.1 [facility] Comment on above: Result Comment: Hemo lysis present, Results??could be affected. ?? Performed By: #### L 500.4050, L506.1000, L501.9985, L100.0100 #### [facility] [address] [place], [address] Sodium [Moles/Vol] 138 mmol/L Normal 133-145 [facility] Comment on above: Performed By: #### L 500.4050, L506.1000, L501.9985, L100.0100 #### [facility] [address] [place], [address] T PROT 8.4 g/dL Normal 5.9-8.4 [facility] Comment on above: Performed By: #### L 500.4050, L506.1000, L501.9985, L100.0100 #### [facility] [address] [place], [address] Urea nitrogen [Mass/Vol] 23 mg/dL High 4-19 [facility] Comment on above: Performed By: #### L 500.4050, L506.1000, L501.9985, L100.0100 #### [facility] [address] [place], [address] Albumin [Mass/Vol] 4.0 g/dL Normal 3.4-4.8 [facility] Comment on above: Order Comment: 134 Performed By: #### L 501.080 #### [facility] [address] [place], [address] Albumin/Globulin [Mass ratio] 0.8 {ratio} Low 0.9-2.4 [facility] Comment on above: Order Comment: 134 Performed By: #### L 501.080 #### [facility] [address] [place], [address] ALK PHOS 148 U/L High 35-104 [facility] Comment on above: Order Comment: 134 Performed By: #### L 501.080 #### [facility] [address] [place], [address] ALT [Catalytic activity/Vol] 26 U/L Normal <=34 [facility] Comment on above: Order Comment: 134 Performed By: #### L 501.080 #### [facility] [address] [place], [address] AST [Catalytic activity/Vol] 37 U/L High <=31 [facility] Comment on above: Order Comment: 134 Performed By: #### L 501.080 #### [facility] [address] [place], [address] Bilirubin [Mass/Vol] 0.62 mg/dL Normal 0.00-1.30 [facility] Comment on above: Order Comment: 134 Performed By: #### L 501.080 #### [facility] [address] [place], [address] BUN/CRE 25.9 RATIO High 10-20 [facility] Comment on above: Order Comment: 134 Performed By: #### L 501.080 #### [facility] [address] [place], [address] Calcium [Mass/Vol] 9.6 mg/dL Normal 7.6-11.0 [facility] Comment on above: Order Comment: 134 Performed By: #### L 501.080 #### [facility] [address] [place], [address] Chloride [Moles/Vol] 104 mmol/L Normal 98-108 [facility] Comment on above: Order Comment: 134 Performed By: #### L 501.080 #### [facility] [address] [place], [address] CO2 [Moles/Vol] 22.6 mmol/L Normal 21.0-32.0 [facility] Comment on above: Order Comment: 134 Performed By: #### L 501.080 #### [facility] [address] [place], [address] Creatinine [Mass/Vol] 0.82 mg/dL Normal 0.70-1.20 [facility] Comment on above: Order Comment: 134 Performed By: #### L 501.080 #### [facility] [address] [place], [address] GAP 12 Normal 5-15 [facility] Comment on above: Order Comment: 134 Performed By: #### L 501.080 #### [facility] [address] [place], [address] GFR/1.73 sq M.predicted among non-blacks MDRD (S/P/Bld) [Vol rate/Area] 76 mL/min/{1.73_m2} Normal >60 [facility] Comment on above: Order Comment: 134 Result Comment: mL/m in/1.73m2 CKD-EPI Creatinine Equation (2020) Performed By: #### L 501.080 #### [facility] [address] [place], [address] Globulin (S) [Mass/Vol] 4.8 g/dL High 2.2-4.2 [facility] Comment on above: Order Comment: 134 Performed By: #### L 501.080 #### [facility] [address] [place], [address] Glucose [Mass/Vol] 173 mg/dL High 70-99 [facility] Comment on above: Order Comment: 134 Performed By: #### L 501.080 #### [facility] [address] [place], [address] Potassium [Moles/Vol] 4.2 mmol/L Normal 3.3-5.1 [facility] Comment on above: Order Comment: 134 Performed By: #### L 501.080 #### [facility] [address] [place], [address] Sodium [Moles/Vol] 138 mmol/L Normal 133-145 [facility] Comment on above: Order Comment: 134 Performed By: #### L 501.080 #### [facility] [address] [place], [address] T PROT 8.9 g/dL High 5.9-8.4 [facility] Comment on above: Order Comment: 134 Performed By: #### L 501.080 #### [facility] [address] [place], [address] Urea nitrogen [Mass/Vol] 21 mg/dL High 4-19 [facility] Comment on above: Order Comment: 134 Performed By: #### L 501.080 #### [facility] [address] [place], [address] Emergency Department Summary on 10-09-2024 Emergency Department Summary [facility] Medical Records Department [address] [place] [address] Emergency Department Summary 10/09/24 MR#: [id number] Acct: [id number] Name: VIDA NINA Rep #: [id number] : 1950 73 From: Dany Richardson MD PCP: Dr. Shayna Malhotra MD Status:REG ER Location: ED HPI History of Present Illness Chief Complaint: Lower Extremity Injury Narrative Narrative: 73-year-old female states that she had pins placed in her left foot approximately 15 years ago [place] after breaking her heel. She is currently in [facility] [place]. She states for the last 2 weeks [...] a baby out of her left heel. [facility] Medical History Obesity Anxiety Cancer Anxiety [...] History powder [facility] Unknown History Lite Strips) blood-glucose meter ([facility] 11/23/21 Unknown History Lite Meter kit) lancets 28 gauge ([facility] 11/23/21 Unknown History Lancets) nystatin 100,000 unit/gram topical 1 applic topical TID #0 grams Unknown Rx powder ([facility]) quetiapine 100 mg tablet 300 mg [...] ROS Narrative (more content not included)... Normal [facility] Eosinophil percentageOrdered By: Dany Richardson on 10-09-2024 Eosinophils/100 WBC (Bld) 2.5 % 0-5 [facility] Eosinophil percentageOrdered By: Shayna Malhotra on 10-09-2024 Eosinophils/100 WBC (Bld) 1.2 % 0-5 [facility] Epithelial cells.squamous LM Ql (Urine sed)Ordered By: Dany Richardson on 10-09-2024 Epithelial cells.squamous LM.HPF (Urine sed) [#/Area] 0 /[HPF] 5-10 [facility] Erythrocyte Sed Rateon 10-09 SED RATE 49 mm/hr High 0-30 [facility] Comment on above: Performed By: #### L 503.0106 #### [facility] [place], [address] Erythrocyte distribution wid th (RBC) [Ratio]Ordered By: Dany Richardson on 10-09-2024 Erythrocyte distribution width (RBC) [Entitic vol] 51.0 fL High 35.1-43.9 [facility] Erythrocyte distribution wid th (RBC) [Ratio]Ordered By: Shayna Malhotra on 10-09-2024 Erythrocyte distribution width (RBC) [Entitic vol] 50.2 fL High 35.1-43.9 [facility] Erythrocyte distribution wid th ratioOrdered By: Dany Richardson on 10-09-2024 Erythrocyte distribution width (RBC) [Ratio] 15.9 % High 11.6-14.6 [facility] Erythrocyte distribution wid th ratioOrdered By: Shayna Malhotra on 10-09-2024 Erythrocyte distribution width (RBC) [Ratio] 15.7 % High 11.6-14.6 [facility] Erythrocyte distribution wid th standard deviationOrdered By: Shayna Malhotra on 10-09-2024 Erythrocyte distribution width (RBC) [Ratio] 50.2 fl High 35.1-43.9 [facility] Erythrocyte sedimentation ra teOrdered By: Missael Lomeli on 10-09-2024 ESR (Bld) [Velocity] 49 mm/h High 0-30 [facility] Estimation of creatinine silvana aranceOrdered By: Dany Richardson on 10-09-2024 Estimated Creatinine Clearance Calc 81.27 ml/min 50-250 [facility] Extremity Lower without Cont raon 10-09-2024 Extremity Lower without Contra [facility] Imaging Services [address] [place] [address] [id number] Extremity Lower without Contra MR#: [id number] Acct: [id number] Name: VIDA NINA Rep #: [id number] : 1950 F 73 From: Saul Sanchez MD PCP: Dr. Shayna Malhotra MD Status: ADM IN Study: Extremity Lower without Contra Date of Exam: 0 10/09/24 Exam# [id number] Ordering Dr: Missael Hernandez DO PROCEDURE: EXTREMITY [...] Hernandez at 2:20 a.m. 10/10/2024 Reading Location: [facility] CC: Dr. Missael Hernandez DO; Dr. Shayna Malhotra MD Sports Management Professor: Signed Normal [facility] Foot min 3 Viewson 5 Foot min 3 Views [facility] Imaging Services [address] [place] [address] Foot min 3 Views MR#: [id number] Acct: [id number] Name: VIDA NINA Rep #: [id number] : 1950 F 73 From: Alok Jiménez MD PCP: Dr. Shayna Malhotra MD Status: REG ER Study: Foot min 3 Views Date of Exam: 10/09/24 Exam# [id number] Ordering Dr: Dany Richardson MD EXAM: LEFT [...] Dany Richardson MD; Dr. Shayna Malhotra MD Sports Management Professor: Signed Normal [facility] GFR/1.73 sq M.predicted saida g non-blacks MDRD (S/P/Bld) [Vol rate/Area]Ordered By: Dany Richardson on 10-09-2024 Estimated GFR (MDRD) Non-Af Amer 70 >60 [facility] Comment on above: mL/min/1.73m2 CKD-EP I Creatinine Equation (2020) GFR/1.73 sq M.predicted saida g non-blacks MDRD (S/P/Bld) [Vol rate/Area]Ordered By: Shayna Malhotra on 10-09-2024 Estimated GFR (MDRD) Non-Af Amer 76 >60 [facility] Comment on above: mL/min/1.73m2 CKD-EP I Creatinine Equation (2020) Glomerular filtration rate ( GFR) estimation/1.73 sq m using serum, plasma, or whole bOrdered By: Shayna Malhotra on 10-09-2024 GFR/1.73 sq M.predicted among non-blacks MDRD (S/P/Bld) [Vol rate/Area] 76 mL/min/{1.73_m2} >60 [facility] Comment on above: mL/min/1.73m2 CKD-EP I Creatinine Equation (2020) Glucose Ql (U)Ordered By: Nolan Richardson on 10-09-2024 Glucose (U) [Mass/Vol] 1000 mg/dL High Normal [facility] H AND P Exam - [facility] 10-09-2024 H&P Exam - Hospitalist [facility] Medical Records Department [address] [place] [address] H P Exam - Hospitalist 10/09/242118 MR#: [id number] Acct: [id number] Name: VIDA NINA Rep #: [id number] : 1950 73 From: Missael Hernandez DO PCP: Dr. Shayna Malhotra MD Status:ADM IN Location: [facility] [place] [place] PL674-3 HPI - General General Date of Admission: [...] is currently residing in assisted living at [facility] [place] presents to [facility] ER complaining of worsening Left [...] skin folds and extremely poor hygiene with PACU RN having social work consulted and patient felt [...] is expected to extend beyond 2 midnights. [facility] Medical History Obesity Anxiety Cancer Anxiety Diabetes [...] topical TID #0 grams Unknown Rx powder ([facility]) quetiapine 100 mg tablet 300 mg (3 x 100 mg) PO BID #0 tabs 11/24/21 Unknown Rx aspirin 81 mg chewable tablet 81 mg PO DAILY 05/06/22 Unknown Hi (more content not included)... Normal [facility] Hematocrit Auto (Bld) [Volum e fraction]Ordered By: Dany Richardson on 10-09-2024 Hematocrit (Bld) [Volume fraction] 40.8 % [address] [place] [address] Hematocrit Auto (Bld) [Volum e fraction]Ordered By: Shayna Malhotra on 10-09-2024 Hematocrit (Bld) [Volume fraction] 40.9 % [address] Hemoglobin A1con 10-09-2024 HbA1c (Bld) [Mass fraction] 7.2 % High <=5.6 [facility] Comment on above: Order Comment: 134 Result Comment: Norm al < 5.7 % Prediabetic 5.7 - 6.4 % Diabetic >or= 6.5 % Please note range changes. Performed By: #### L 501.080 #### [facility] [address] [place], [place] [address] [place], [place], [id number] Hemoglobin A1c percentageOrd ered By: Missael Lomeli on 10-09-2024 HbA1c (Bld) [Mass fraction] 7.2 % High <5.7 [facility] Comment on above: Normal < 5.7 % Predi abetic 5.7 - 6.4 % Diabetic >or= 6.5 % Please note range changes. Hemoglobin A1c percentageOrd ered By: Shayna Malhotra on 10-09-2024 HbA1c (Bld) [Mass fraction] 7.2 % High <5.7 [facility] Comment on above: Normal < 5.7 % Predi abetic 5.7 - 6.4 % Diabetic >or= 6.5 % Please note range changes. Hemoglobin measurementOrdere d By: Dany Richardson on 10-09-2024 Hemoglobin (Bld) [Mass/Vol] 13.5 g/dL 12.0-15.0 [facility] Hemoglobin measurementOrdere d By: Shayna Malhotra on 10-09-2024 Hemoglobin (Bld) [Mass/Vol] 13.5 g/dL 12.0-15.0 [facility] Immature granulocytes/100 WB C Auto (Bld)Ordered By: Dany Richardson on 10-09-2024 Immature granulocytes/100 WBC (Bld) 0.400 % 0.0-0.9 [facility] Comment on above: IG% - Immature Granu locytes (promyelocytes, myelocytes and metamyelocytes) > 1% indicates that a LEFT SHIFT is Present. Immature granulocytes/100 WB C Auto (Bld)Ordered By: Shayna Malhotra on 10-09-2024 Immature granulocytes/100 WBC (Bld) 0.300 % 0.0-0.9 [facility] Comment on above: IG% - Immature Granu locytes (promyelocytes, myelocytes and metamyelocytes) > 1% indicates that a LEFT SHIFT is Present. Ketones Test strip Ql (U)Ord ered By: Dany Richardson on 10-09-2024 Ketones Ql (U) Negative Negative [facility] - Chemistry and C hemistry - challengeOrdered By: Dany Richardson on 10-09-2024 AST [Catalytic activity/Vol] 40 U/L High <32 [facility] Comment on above: Hemolysis present, R esults could be affected. Laboratory - Chemistry and C hemistry - challengeOrdered By: Shayna Malhotra on 10-09-2024 AST [Catalytic activity/Vol] 37 U/L High <32 [facility] Lymphocytes Auto (Unsp spec) [#/Vol]Ordered By: Dany Richardson on 10-09-2024 Lymphocytes (Bld) [#/Vol] 1.11 10*3/uL 0.83-4.51 [facility] Lymphocytes Auto (Unsp spec) [#/Vol]Ordered By: Shayna Malhotra on 10-09-2024 Lymphocytes (Bld) [#/Vol] 0.97 10*3/uL 0.83-4.51 [facility] Lymphocytes/100 WBC Auto (Un sp spec)Ordered By: Dany Richardson on 10-09-2024 Lymphocytes/100 WBC (Bld) 16.3 % Low 19-41 [facility] Lymphocytes/100 WBC Auto (Un sp spec)Ordered By: Shayna Malhotra on 10-09-2024 Lymphocytes/100 WBC (Bld) 16.1 % Low 19-41 [facility] MCV (mean corpuscular volume ) determinationOrdered By: Dany Richardson on 10-09-2024 MCV (RBC) [Entitic vol] 87.4 fL 81-99 [facility] MCV (mean corpuscular volume ) determinationOrdered By: Shayna Malhotra on 10-09-2024 MCV (RBC) [Entitic vol] 87.4 fL 81-99 [facility] Magnesiumon 10-09-2024 Magnesium [Mass/Vol] 2.1 mg/dL Normal 1.5-2.2 [facility] Comment on above: Performed By: #### L 503.0106 #### [facility] [address] [place] [address], [address] Mean corpuscular hemoglobin (MCH) determinationOrdered By: Dany Richardson on 10-09-2024 MCH (RBC) [Entitic mass] 28.9 pg 27.0-32.0 [facility] Mean corpuscular hemoglobin (MCH) determinationOrdered By: Shayna Malhotra on 10-09-2024 MCH (RBC) [Entitic mass] 28.8 pg 27.0-32.0 [facility] Mean corpuscular hemoglobin concentration (MCHC) determinationOrdered By: Dany Richardson on 10-09-2024 MCHC (RBC) [Mass/Vol] 33.1 g/dL [facility] Mean corpuscular hemoglobin concentration (MCHC) determinationOrdered By: Shayna Malhotra on 10-09-2024 MCHC (RBC) [Mass/Vol] 33.0 g/dL [facility] Mean platelet volume determi nationOrdered By: Dany Richardson on 10-09-2024 Platelet mean volume (Bld) [Entitic vol] 11.8 fL 6.2-12.0 [facility] Mean platelet volume determi nationOrdered By: Shayna Malhotra on 10-09-2024 Platelet mean volume (Bld) [Entitic vol] 10.8 fL 6.2-12.0 [facility] Microscopic analysis of urin e for red blood cells (RBC)Ordered By: Dany Richardson on 10-09-2024 Microscopic analysis of urine for red blood cells (RBC) 10-25 SEEN /hpf 0-5 [facility] Urine RBC 10-25 SEEN /hpf 0-5 [facility] Monocyte percentageOrdered B y: Dany Richardson on 10-09-2024 Monocytes/100 WBC (Bld) 8.3 % 0-10 [facility] Monocyte percentageOrdered B y: Shayna Malhotra on 10-09-2024 Monocytes/100 WBC (Bld) 8.4 % 0-10 [facility] Mucus LM Ql (Urine sed)Order ed By: Dany Richardson on 10-09-2024 Mucus Ql (Urine sed) 0 SEEN /hpf [facility] Neutrophil percentageOrdered By: Dany Richardson on 10-09-2024 Neutrophils/100 WBC (Bld) 72.1 % High 47-70 [facility] Neutrophil percentageOrdered By: Shayna Malhotra on 10-09-2024 Neutrophils/100 WBC (Bld) 73.5 % High 47-70 [facility] Nitrite Test strip Ql (U)Ord ered By: Dany Richardson on 10-09-2024 Nitrite Ql (U) Negative Negative [facility] No Panel InformationOrdered By: Missael Lomeli on 10-09-2024 Urine Buprenorphine Qualitative Negative < 200 ng/mL [facility] Urine Oxycodone Screen Negative < 100 ng/mL [facility] Nucleated red blood cell per centageOrdered By: Dany Richardson on 10-09-2024 Nucleated RBC/100 WBC (Bld) [Ratio] 0 % 0-5 [facility] Nucleated red blood cell per centageOrdered By: Shayna Malhotra on 10-09-2024 Nucleated RBC/100 WBC (Bld) [Ratio] 0 % 0-5 [facility] Platelet countOrdered By: Nolan Richardson on 10-09-2024 Platelets (Bld) [#/Vol] 106 10*3/uL Low 150-450 [facility] Platelet countOrdered By: Maryanne Malhotra on 10-09-2024 Platelets (Bld) [#/Vol] 107 10*3/uL Low 150-450 [facility] Potassium (Unsp spec) [Mass/ Vol]Ordered By: Dany Richardson on 10-09-2024 Potassium [Moles/Vol] 4.5 mmol/L 3.3-5.1 [facility] Comment on above: Hemolysis present, R esults could be affected. Potassium (Unsp spec) [Mass/ Vol]Ordered By: Shayna Malhotra on 10-09-2024 Potassium [Moles/Vol] 4.2 mmol/L 3.3-5.1 [facility] Potassium measurement (mass/ volume)Ordered By: Shayna Malhotra on 10-09-2024 Potassium (Unsp spec) [Mass/Vol] 4.2 mmol/L 3.3-5.1 [facility] Protein Test strip Ql (U)Ord ered By: Dany Richardson on 10-09-2024 Protein Ql (U) 30 mg/dl High Negative [facility] Quantitative urine opiates m easurementOrdered By: Missael Lomeli on 10-09-2024 Opiates Ql (U) Negative < 300 ng/mL [facility] RBC Auto (Bld) [#/Vol]Ordere d By: Dany Richardson on 10-09-2024 RBC (Bld) [#/Vol] 4.67 10*6/uL 4.2-5.4 [facility] RBC Auto (Bld) [#/Vol]Ordere d By: Shayna Malhotra on 10-09-2024 RBC (Bld) [#/Vol] 4.68 10*6/uL 4.2-5.4 [facility] Screening urine fentanyl renay surementOrdered By: Missael Lomeli on 10-09-2024 fentaNYL Screen Ql (U) Negative [facility] Serum creatinine measurement (mass/volume)Ordered By: Dany Richardson on 10-09-2024 Creatinine [Mass/Vol] 0.88 mg/dL 0.70-1.20 [facility] Serum creatinine measurement (mass/volume)Ordered By: Shayna Malhotra on 10-09-2024 Creatinine [Mass/Vol] 0.82 mg/dL 0.70-1.20 [facility] Serum globulin measurementOr dered By: Dany Richardson on 10-09-2024 Globulin (S) [Mass/Vol] 4.6 g/dL High 2.2-4.2 [facility] Serum globulin measurementOr dered By: Shayna Malhotra on 10-09-2024 Globulin (S) [Mass/Vol] 4.8 g/dL High 2.2-4.2 [facility] Serum glucose measurement (m ass/volume)Ordered By: Dany Richardson on 10-09-2024 Glucose [Mass/Vol] 138 mg/dL High 70-99 [facility] Serum glucose measurement (m ass/volume)Ordered By: Shayna Malhotra on 10-09-2024 Glucose [Mass/Vol] 173 mg/dL High 70-99 [facility] Serum or plasma C reactive p rotein measurement (mass/volume)Ordered By: Missael Lomeli on 10-09-2024 CRP [Mass/Vol] 5.92 mg/L High 0.0-3.0 [facility] Serum or plasma alanine burnette otransferase (ALT) measurementOrdered By: Dany Richardson on 10-09-2024 ALT [Catalytic activity/Vol] 23 U/L <35 [facility] Serum or plasma alanine burnette otransferase (ALT) measurementOrdered By: Shayna Malhotra on 10-09-2024 ALT [Catalytic activity/Vol] 26 U/L <35 [facility] Serum or plasma albumin kim urement (mass/volume)Ordered By: Dany Richardson on 10-09-2024 Albumin [Mass/Vol] 3.8 g/dL 3.4-4.8 [facility] Serum or plasma albumin kim urement (mass/volume)Ordered By: Shayna Malhotra on 10-09-2024 Albumin [Mass/Vol] 4.0 g/dL 3.4-4.8 [facility] Serum or plasma albumin/glob ulin mass ratioOrdered By: Dany Richardson on 10-09-2024 Albumin/Globulin [Mass ratio] 0.8 {ratio} Low 0.9-2.4 [facility] Serum or plasma albumin/glob ulin mass ratioOrdered By: Shayna Malhotra on 10-09-2024 Albumin/Globulin [Mass ratio] 0.8 {ratio} Low 0.9-2.4 [facility] Serum or plasma alkaline regina sphatase measurementOrdered By: Dany Richardson on 10-09-2024 ALP [Catalytic activity/Vol] 135 U/L High [facility] Serum or plasma alkaline regina sphatase measurementOrdered By: Shayna Malhotra on 10-09-2024 ALP [Catalytic activity/Vol] 148 U/L High 35- [facility] Serum or plasma calcium kim urement (mass/volume)Ordered By: Dany Richardson on 10-09-2024 Calcium [Mass/Vol] 9.7 mg/dL 7.6-11.0 [facility] Serum or plasma calcium kim urement (mass/volume)Ordered By: Shayna Malhotra on 10-09-2024 Calcium [Mass/Vol] 9.6 mg/dL 7.6-11.0 [facility] Serum or plasma ethanol kim urement (mass/volume)Ordered By: Missael Lomeli on 10-09-2024 Ethanol [Mass/Vol] mg/dL <10.1 [facility] Comment on above: This test is for med ical purposes only. The legal definition of intoxication varies according to local law. Serum or plasma urea nitroge n measurement (mass/volume)Ordered By: Dany Richardson on 10-09-2024 Urea nitrogen [Mass/Vol] 23 mg/dL High 09-22 [facility] Serum or plasma urea nitroge n measurement (mass/volume)Ordered By: Shayna Malhotra on 10-09-2024 Urea nitrogen [Mass/Vol] 21 mg/dL High 09-22 [facility] Sodium levelOrdered By: Dany Richardson on 10-09-2024 Sodium [Moles/Vol] 138 mmol/L 133-145 [facility] Sodium levelOrdered By: Paty Malhotra on 10-09-2024 Sodium [Moles/Vol] 138 mmol/L 133-145 [facility] Squamous epithelial cells de tection in urine sediment by light microscopyOrdered By: Dany Richardson on 10-09-2024 Epithelial cells.squamous LM Ql (Urine sed) 0-5 SEEN /hpf 5-10 [facility] TSH DL <= 0.005 mIU/L QnOrde red By: Missael Lomeli on 10-09-2024 TSH Qn 4.730 uIU/mL High 0.300-4.20 0 [facility] Thyroid Stim Hormone (TSH)on 10-09-2024 TSH 4.730 uIU/mL High 0.300-4.20 0 [facility] Comment on above: Performed By: #### L 503.0106 #### [facility] [address] [place], [address] Total proteinOrdered By: Treasure Richardson on 10-09-2024 Protein [Mass/Vol] 8.4 g/dL 5.9-8.4 [facility] Total proteinOrdered By: Evi Malhotra on 10-09-2024 Protein [Mass/Vol] 8.9 g/dL High 5.9-8.4 [facility] Transitional cells LM Ql (Ur ine sed)Ordered By: Dany Richardson on 10-09-2024 Urine Transitional Epithelial Cells 0-5 SEEN /hpf 0-5 [facility] Transitional cells detection in urine sediment by light microscopyOrdered By: Dany Richardson on 10-09-2024 Transitional cells LM Ql (Urine sed) 0-5 SEEN /hpf 0-5 [facility] Urinalysis, Completeon 10-09 AMORPHOUS 1+ Normal [facility] Comment on above: Order Comment: JOSE L CTOR TO SPECIFY Performed By: #### L 503.0106 #### [facility] [address] [place], [address] EPI,SQUAMOUS 0-5 SEEN Normal 5-10 [facility] Comment on above: Order Comment: JOSE L CTOR TO SPECIFY Performed By: #### L [id number] #### [facility] [address] [place], [address] EPI,TRANSITION 0-5 SEEN Normal 0-5 [facility] Comment on above: Order Comment: COLLE CTOR TO SPECIFY Performed By: #### L [id number] #### [facility] [address] [place], [address] RBC 10-25 SEEN Normal 0-5 [facility] Comment on above: Order Comment: COLLE CTOR TO SPECIFY Performed By: #### L [id number] #### [facility] [address] [place], [address] BACTERIA 4+ /hpf Normal None Seen [facility] Comment on above: Order Comment: JOSE L CTOR TO SPECIFY Performed By: #### L [id number] #### [facility] [address] [place], [address] WBC >100 SEEN Normal 0-5 [facility] Comment on above: Order Comment: JOSE L CTOR TO SPECIFY Performed By: #### L [id number] #### [facility] [address] [place], [address] Mucus Ql (Urine sed) 0 SEEN Normal [facility] Comment on above: Order Comment: JOSE L CTOR TO SPECIFY Performed By: #### L 503.0106 #### [facility] [address] [place], [address] Urine Drug Screen (VISTA)on 10-09-2024 AMPHETAMINES Negative Normal <1000 ng/mL [facility] Comment on above: Order Comment: UNK Performed By: #### L [id number] #### [facility] [address] [place], [address] BARBITIURATES Negative Normal < 200 ng/mL [facility] Comment on above: Order Comment: UNK Performed By: #### L [id number] #### [facility] [address] [place], [address] BENZODIAZIPINE Negative Normal < 200 ng/mL [facility] Comment on above: Order Comment: UNK Performed By: #### L [id number] #### [facility] [address] [place], [address] BUP Ur Drug Scr Negative Normal < 200 ng/mL [facility] Comment on above: Order Comment: UNK Performed By: #### L [id number] #### [facility] [address] [place], [address] COCAINE Negative Normal < 300 ng/mL [facility] Comment on above: Order Comment: UNK Performed By: #### L [id number] #### [facility] [address] [place], [address] Fentanyl Negative Normal [facility] Comment on above: Order Comment: UNK Performed By: #### L [id number] #### [facility] [address] [place], [address] METHADONE Negative Normal < 300 ng/mL [facility] Comment on above: Order Comment: UNK Performed By: #### L [id number] #### [facility] [address] [place], [address] OPIATES Negative Normal < 300 ng/mL [facility] Comment on above: Order Comment: UNK Performed By: #### L [id number] #### [facility] [address] [place], [address] OXYCODONE Negative Normal < 100 ng/mL [facility] Comment on above: Order Comment: UNK Performed By: #### L [id number] #### [facility] [address] [place], [address] PCP Negative Normal < 25 ng/mL [facility] Comment on above: Order Comment: UNK Performed By: #### L [id number] #### [facility] [address] [place], [place], [address] THC Negative Normal < 50 ng/mL [facility] Comment on above: Order Comment: UNK Performed By: #### L [id number] #### [facility] [address] [place], [place], [id number] Urine benzodiazepine levelOr dered By: Missael Lomeli on 10-09-2024 Benzodiazepines Ql (U) Negative < 200 ng/mL [facility] Urine blood detectionOrdered By: Dany Richardson on 10-09-2024 Urine Occult Blood 150 /ul High Negative [facility] Urine clarityOrdered By: Treasure Richardson on 10-09-2024 Clarity (U) Cloudy Clear [facility] Urine cocaine levelOrdered B y: Missael Lomeli on 10-09-2024 Cocaine Ql (U) Negative < 300 ng/mL [facility] Urine color determinationOrd ered By: Dany Richardson on 10-09-2024 Color (U) Yellow Yellow [facility] Urine uuyil-9-cmjvvehvuyxbmr abinol (THC) measurementOrdered By: Missael Lomeli on 10-09-2024 Cannabinoids Screen Ql (U) Negative < 50 ng/mL [facility] Urine glucose detectionOrder ed By: Dany Richardson on 10-09-2024 Glucose Ql (U) 1000 mg/dl High Normal [facility] Urine leukocyte esterase det ection by dipstickOrdered By: Dany Richardson on 10-09-2024 Leukocyte esterase Test strip Ql (U) 100 /ul High Negative [facility] Urine pHOrdered By: Dany chung on 10-09-2024 pH (U) 5.0 [pH] 5.0 - 8.0 [facility] Urine phencyclidine (PCP) de tectionOrdered By: Missael Lomeli on 10-09-2024 Phencyclidine Ql (U) Negative < 25 ng/mL [facility] Urine sediment bacteria coun t by microscopy (number/high power field)Ordered By: Dany Richardson on 10-09-2024 Bacteria LM.HPF (Urine sed) [#/Area] 4 /[HPF] None Seen [facility] Urine specific gravity measu rementOrdered By: Dany Byrdshruthi on 10-09-2024 Specific gravity (U) [Rel density] 1.020 1.002-1.03 0 [facility] Urine urobilinogen measureme ntOrdered By: Dany Richardson on 10-09-2024 Urobilinogen Ql (U) 1 mg/dl High Normal [facility] Urobilinogen Ql (U)Ordered B y: Dany Richardson on 10-09-2024 Urobilinogen (U) [Mass/Vol] 1 mg/dL High Normal [facility] Vitamin B12on 10-09-2024 Cobalamin (Vitamin B12) [Mass/Vol] 379 pg/mL Normal 180-914 [facility] Comment on above: Performed By: #### L 503.0106 #### [facility] [address] [facility], [address] Vitamin B12 ser/plasOrdered By: Missael Lomeli on 10-09-2024 Cobalamin (Vitamin B12) [Mass/Vol] 379 pg/mL 180-914 [facility] Vitamin D, 25-hydroxyOrdered By: Shayna Malhotra on 10-09-2024 Vitamin D 25-Hydroxy 30.0 ng/mL 30-100 [facility] Comment on above: Vitamin D StatusDefi ciency: <20 ng/mL (50nmol/L)Insufficiency: 20-30 ng/mL (50-75 nmol/L)Sufficiency: 30-100 ng/mL (75-250 nmol/L)Toxicity: >100 ng/mL (>250 nmol/L) Vitamin D,25 Hydroxyon 10-09 Vitamin D 25-OH 30.0 ng/mL Normal 30-100 [facility] Comment on above: Order Comment: 134 Result Comment: Maricarmen min D Status Deficiency: <20 ng/mL (50nmol/L) Insufficiency: 20-30 ng/mL (50-75 nmol/L) Sufficiency: 30-100 ng/mL (75-250 nmol/L) Toxicity: >100 ng/mL (>250 nmol/L) Performed By: #### L 501.080 #### [facility] [address] [place], [address] White blood cell (WBC) count Ordered By: Dany Richardson on 10-09-2024 WBC (Bld) [#/Vol] 6.8 10*3/uL 4.4-11.0 [facility] White blood cell (WBC) count Ordered By: Shayna Malhotra on 10-09-2024 WBC (Bld) [#/Vol] 6.0 10*3/uL 4.4-11.0 [facility] White blood cell countOrdere d By: Dany Richardson on 10-09-2024 Urine WBC >100 SEEN /hpf 0-5 [facility] White blood cell count >100 SEEN /hpf 0-5 [facility] CBC W/Diff, Automatedon Absolute Neut Normal 2.0-7.7 [facility] Comment on above: Order Comment: 134 Result Comment: UTO X2 Performed By: #### L [id number], L506.1000, L501.9985, L100.0100 #### [facility] [address] [place], [address] HCT Normal 37-47 [facility] Comment on above: Order Comment: 134 Result Comment: UTO X2 Performed By: #### L [id number], L506.1000, [id number], L100.0100 #### [facility] [address] [place], [address] HGB Normal 12.0-15.0 [facility] Comment on above: Order Comment: 134 Result Comment: UTO X2 Performed By: #### L 500.4050, L506.1000, L501.9985, L100.0100 #### [facility] [address] [place], [address] MCH Normal 27.0-32.0 [facility] Comment on above: Order Comment: 134 Result Comment: UTO X2 Performed By: #### L 500.4050, L506.1000, L501.9985, L100.0100 #### [facility] [address] [place], [address] MCHC Normal 32-36 [facility] Comment on above: Order Comment: 134 Result Comment: UTO X2 Performed By: #### L 500.4050, L506.1000, [id number], L100.0100 #### [facility] [address] [place], [address] MCV Normal 81-99 [facility] Comment on above: Order Comment: 134 Result Comment: UTO X2 Performed By: #### L 500.4050, L506.1000, [id number], L100.0100 #### [facility] [address] [place], [address] NEUT% Normal 47-70 [facility] Comment on above: Order Comment: 134 Result Comment: UTO X2 Performed By: #### L 500.4050, L506.1000, [id number], L100.0100 #### [facility] [address] [place], [address] PLT Normal 150-450 [facility] Comment on above: Order Comment: 134 Result Comment: UTO X2 Performed By: #### L 500.4050, L506.1000, [id number], L100.0100 #### [facility] [address] [place], [address] RBC Normal 4.2-5.4 [facility] Comment on above: Order Comment: 134 Result Comment: UTO X2 Performed By: #### L 500.4050, L506.1000, [id number], L100.0100 #### [facility] [address] [place], [address] RDW CV Normal 11.6-14.6 [facility] Comment on above: Order Comment: 134 Result Comment: UTO X2 Performed By: #### L 500.4050, L506.1000, L501.9985, L100.0100 #### [facility] [address] [place], [address] RDW SD Normal 35.1-43.9 [facility] Comment on above: Order Comment: 134 Result Comment: UTO X2 Performed By: #### L 500.4050, L506.1000, L501.9985, L100.0100 #### [facility] [address] [place], [address] WBC Normal 4.4-11.0 [facility] Comment on above: Order Comment: 134 Result Comment: UTO X2 Performed By: #### L 500.4050, L506.1000, [id number], L100.0100 #### [facility] [address] [place], [address] Comprehensive Metabolic Prof [facility] 10-08-2024 ALB Normal 3.4-4.8 [facility] Comment on above: Order Comment: 134 Result Comment: UTO X2 Performed By: #### L 500.4050, L506.1000, L501.9985, L100.0100 #### [facility] [address] [place], [address] ALK PHOS Normal 35-104 [facility] Comment on above: Order Comment: 134 Result Comment: UTO X2 Performed By: #### L 500.4050, L506.1000, [id number], L100.0100 #### [facility] [address] [place], [address] ALT Normal <=34 [facility] Comment on above: Order Comment: 134 Result Comment: UTO X2 Performed By: #### L 500.4050, L506.1000, L501.9985, L100.0100 #### [facility] [address] [place], [address] AST Normal <=31 [facility] Comment on above: Order Comment: 134 Result Comment: UTO X2 Performed By: #### L 500.4050, L506.1000, L501.9985, L100.0100 #### [facility] [address] [place], [address] BUN Normal 4-19 [facility] Comment on above: Order Comment: 134 Result Comment: UTO X2 Performed By: #### L 500.4050, L506.1000, [id number], L100.0100 #### [facility] [address] [place], [address] BUN/CRE Normal 10-20 [facility] Comment on above: Order Comment: 134 Result Comment: UTO X2 Performed By: #### L 500.4050, L506.1000, L501.9985, L100.0100 #### [facility] [address] [place], [address] Calcium Normal 7.6-11.0 [facility] Comment on above: Order Comment: 134 Result Comment: UTO X2 Performed By: #### L 500.4050, L506.1000, L501.9985, L100.0100 #### [facility] [address] [place], [address] CL Normal 98-108 [facility] Comment on above: Order Comment: 134 Result Comment: UTO X2 Performed By: #### L 500.4050, L506.1000, L501.9985, L100.0100 #### [facility] [address] [place], [address] CO2 Normal 21.0-32.0 [facility] Comment on above: Order Comment: 134 Result Comment: UTO X2 Performed By: #### L 500.4050, L506.1000, [id number], L100.0100 #### [facility] [address] [place], [address] CREAT,SERUM Normal 0.70-1.20 [facility] Comment on above: Order Comment: 134 Result Comment: UTO X2 Performed By: #### L 500.4050, L506.1000, L501.9985, L100.0100 #### [facility] [address] [place], [address] eGFR Normal >60 [facility] Comment on above: Order Comment: 134 Result Comment: UTO X2 Performed By: #### L 500.4050, L506.1000, L501.9985, L100.0100 #### [facility] [address] [place], [address] GAP Normal 5-15 [facility] Comment on above: Order Comment: 134 Result Comment: UTO X2 Performed By: #### L 500.4050, L506.1000, L501.9985, L100.0100 #### [facility] [address] [place], [address] GLU Normal 70-99 [facility] Comment on above: Order Comment: 134 Result Comment: UTO X2 Performed By: #### L 500.4050, L506.1000, L501.9985, L100.0100 #### [facility] [address] [place], [address] Potassium Normal 3.3-5.1 [facility] Comment on above: Order Comment: 134 Result Comment: UTO X2 Performed By: #### L 500.4050, L506.1000, L501.9985, L100.0100 #### [facility] [address] [place], [address] T BILI Normal 0.00-1.30 [facility] Comment on above: Order Comment: 134 Result Comment: UTO X2 Performed By: #### L 500.4050, L506.1000, L501.9985, L100.0100 #### [facility] [address] [place], [address] T PROT Normal 5.9-8.4 [facility] Comment on above: Order Comment: 134 Result Comment: UTO X2 Performed By: #### L 500.4050, L506.1000, L501.9985, L100.0100 #### [facility] [address] [place], [address] Comprehensive Metabolic Profil Normal 133-145 [facility] Comment on above: Order Comment: 134 Result Comment: UTO X2 Performed By: #### L 500.4050, L506.1000, L501.9985, L100.0100 #### [facility] [address] [place], [address] [id number] DOrdered By: Jean Malhotra on 07-09-2024 Vitamin D 25-Hydroxy 44.8 ng/mL [facility] Comment on above: Vitamin D 25(OH) Sta tus Range Deficiency <20 ng/mL (50nmol/L) Insufficiency 20 - 30 ng/mL (50 - 75 nmol/L) Sufficiency 30 - 100 ng/mL (75 - 250 nmol/L) Toxicity >100 ng/mL (>250 nmol/L) Absolute lymphocyte countOrd ered By: Shayna Malhotra on 07-09-2024 Lymphocytes Auto (Unsp spec) [#/Vol] 0.82 10*3/uL Low 0.83-4.51 [facility] Absolute neutrophil countOrd ered By: Shayna Malhotra on 07-09-2024 Neutrophils (Bld) [#/Vol] 2.6 10*3/uL 2.0-7.7 [facility] Albumin to globulin ratioOrd ered By: Shayna Malhotra on 07-09-2024 Albumin/Globulin [Mass ratio] 0.6 {ratio} Low 0.9-2.4 [facility] Automated lymphocyte count a s percentage of total leukocytesOrdered By: Shayna Malhotra on 07-09-2024 Lymphocytes/100 WBC Auto (Unsp spec) 20.2 % 19-41 [facility] Basophil percentageOrdered B y: Shayna Malhotra on 07-09-2024 Basophils/100 WBC (Bld) 1.0 % 0-1 [facility] Bilirubin, totalOrdered By: Shayna Malhotra on 07-09-2024 Bilirubin [Mass/Vol] 0.70 mg/dL 0.20-1.00 [facility] Comment on above: For patients on eltr ombopag therapy, use of Dimension [place] TBIL is not recommended. Blood urea nitrogen (BUN)/cr eatinine ratioOrdered By: Shayna Malhotra on 07-09-2024 Urea nitrogen/Creatinine [Mass ratio] 22.2 mg/mg High 10-20 [facility] CBC W/Diff, Automatedon Absolute Lymph 0.82 X10 3/uL Low 0.83-4.51 [facility] Comment on above: Order Comment: 134 Performed By: #### L 500.4050, L506.1000, L501.9985, L100.0100 #### [facility] [address] [place], [address] Absolute Neut 2.6 X10 3/uL Normal 2.0-7.7 [facility] Comment on above: Order Comment: 134 Performed By: #### L 500.4050, L506.1000, L501.9985, L100.0100 #### [facility] [address] [place], [address] Basophils/100 WBC (Bld) 1.0 % Normal 0-1 [facility] Comment on above: Order Comment: 134 Performed By: #### L 500.4050, L506.1000, L501.9985, L100.0100 #### [facility] [address] [place], [address] Eosinophils/100 WBC (Bld) 5.9 % High 0-5 [facility] Comment on above: Order Comment: 134 Performed By: #### L 500.4050, L506.1000, L501.9985, L100.0100 #### [facility] [address] [place], [address] Erythrocyte distribution width (RBC) [Ratio] 15.9 % High 11.6-14.6 [facility] Comment on above: Order Comment: 134 Performed By: #### L 500.4050, L506.1000, L501.9985, L100.0100 #### [facility] [address] [place], [address] Hematocrit (Bld) [Volume fraction] 38.2 % Normal 37-47 [facility] Comment on above: Order Comment: 134 Performed By: #### L 500.4050, L506.1000, L501.9985, L100.0100 #### [facility] [address] [place], [address] Hemoglobin (Bld) [Mass/Vol] 12.4 g/dL Normal 12.0-15.0 [facility] Comment on above: Order Comment: 134 Performed By: #### L 500.4050, L506.1000, L501.9985, L100.0100 #### [facility] [address] [place], [address] IG% 0.200 Normal 0.0-0.9 [facility] Comment on above: Order Comment: 134 Result Comment: IG% - Immature Granulocytes (promyelocytes, myelocytes and metamyelocytes) > 1% indicates that a LEFT SHIFT is Present. Performed By: #### L 500.4050, L506.1000, L501.9985, L100.0100 #### [facility] [address] [place], [address] Lymphocytes/100 WBC (Bld) 20.2 % Normal 19-41 [facility] Comment on above: Order Comment: 134 Performed By: #### L 500.4050, L506.1000, L501.9985, L100.0100 #### [facility] [address] [place], [address] MCH (RBC) [Entitic mass] 29.0 pg Normal 27.0-32.0 [facility] Comment on above: Order Comment: 134 Performed By: #### L 500.4050, L506.1000, L501.9985, L100.0100 #### [facility] [address] [place], [address] MCHC (RBC) [Mass/Vol] 32.5 g/dL Normal 32-36 [facility] Comment on above: Order Comment: 134 Performed By: #### L 500.4050, L506.1000, L501.9985, L100.0100 #### [facility] [address] [place], [address] MCV (RBC) [Entitic vol] 89.5 fL Normal 81-99 [facility] Comment on above: Order Comment: 134 Performed By: #### L 500.4050, L506.1000, L501.9985, L100.0100 #### [facility] [address] [place], [address] Monocytes/100 WBC (Bld) 9.6 % Normal 0-10 [facility] Comment on above: Order Comment: 134 Performed By: #### L 500.4050, L506.1000, L501.9985, L100.0100 #### [facility] [address] [place], [address] Neutrophils/100 WBC (Bld) 63.1 % Normal 47-70 [facility] Comment on above: Order Comment: 134 Performed By: #### L 500.4050, L506.1000, L501.9985, L100.0100 #### [facility] [address] [place], [address] Nucleated RBC (Bld) [#/Vol] 0 10*3/uL Normal 0-5 [facility] Comment on above: Order Comment: 134 Performed By: #### L 500.4050, L506.1000, L501.9985, L100.0100 #### [facility] [address] [place], [address] Platelet mean volume (Bld) [Entitic vol] 11.0 fL Normal 6.2-12.0 [facility] Comment on above: Order Comment: 134 Performed By: #### L 500.4050, L506.1000, L501.9985, L100.0100 #### [facility] [address] [place], [address] Platelets (Bld) [#/Vol] 116 10*3/uL Low 150-450 [facility] Comment on above: Order Comment: 134 Performed By: #### L 500.4050, L506.1000, L501.9985, L100.0100 #### [facility] [address] [place], [address] RBC (Bld) [#/Vol] 4.27 10*6/uL Normal 4.2-5.4 [facility] Comment on above: Order Comment: 134 Performed By: #### L 500.4050, L506.1000, L501.9985, L100.0100 #### [facility] [address] [place], [address] RDW SD 52.1 fl High 35.1-43.9 [facility] Comment on above: Order Comment: 134 Performed By: #### L 500.4050, L506.1000, L501.9985, L100.0100 #### [facility] [address] [place], [address] WBC (Bld) [#/Vol] 4.1 10*3/uL Low 4.4-11.0 [facility] Comment on above: Order Comment: 134 Performed By: #### L 500.4050, L506.1000, L501.9985, L100.0100 #### [facility] [address] [place], [address] Carbon dioxide measurementOr dered By: Shayna Malhotra on 07-09-2024 CO2 [Moles/Vol] 25.0 mmol/L 21.0-32.0 [facility] Chloride measurementOrdered By: Shayna Malhotra on 07-09-2024 Chloride [Moles/Vol] 107 mmol/L 98-107 [facility] Comprehensive Metabolic Prof ilon 07-09-2024 Albumin [Mass/Vol] 3.1 g/dL Low 3.2-5.0 [facility] Comment on above: Order Comment: 134 Performed By: #### L 500.4050, L506.1000, L501.9985, L100.0100 #### [facility] [address] [place], [address] Albumin/Globulin [Mass ratio] 0.6 {ratio} Low 0.9-2.4 [facility] Comment on above: Order Comment: 134 Performed By: #### L 500.4050, L506.1000, L501.9985, L100.0100 #### [facility] [address] [place], [address] ALK P 126 U/L High 45-117 [facility] Comment on above: Order Comment: 134 Performed By: #### L 500.4050, L506.1000, L501.9985, L100.0100 #### [facility] [address] [place], [address] ALT [Catalytic activity/Vol] 27 U/L Normal 13-56 [facility] Comment on above: Order Comment: 134 Performed By: #### L 500.4050, L506.1000, L501.9985, L100.0100 #### [facility] [address] [place], [address] AST [Catalytic activity/Vol] 35 U/L Normal 15-37 [facility] Comment on above: Order Comment: 134 Performed By: #### L 500.4050, L506.1000, L501.9985, L100.0100 #### [facility] [address] [place], [address] Bilirubin [Mass/Vol] 0.70 mg/dL Normal 0.20-1.00 [facility] Comment on above: Order Comment: 134 Result Comment: For patients on eltrombopag therapy, use of Dimension [place] TBIL is not recommended. Performed By: #### L 500.4050, L506.1000, L501.9985, L100.0100 #### [facility] [address] [place], [address] BUN/CRE 22.2 RATIO High 10-20 [facility] Comment on above: Order Comment: 134 Performed By: #### L 500.4050, L506.1000, L501.9985, L100.0100 #### [facility] [address] [place], [address] CA,Total 9.3 mg/dL Normal 8.5-10.1 [facility] Comment on above: Order Comment: 134 Performed By: #### L 500.4050, L506.1000, L501.9985, L100.0100 #### [facility] [address] [place], [address] Chloride [Moles/Vol] 107 mmol/L Normal 98-107 [facility] Comment on above: Order Comment: 134 Performed By: #### L 500.4050, L506.1000, L501.9985, L100.0100 #### [facility] [address] [place], [address] CO2 [Moles/Vol] 25.0 mmol/L Normal 21.0-32.0 [facility] Comment on above: Order Comment: 134 Performed By: #### L 500.4050, L506.1000, L501.9985, L100.0100 #### [facility] [address] [place], [address] Creatinine [Mass/Vol] 0.76 mg/dL Normal 0.55-1.02 [facility] Comment on above: Order Comment: 134 Result Comment: The validity of the calculated GFR GFRAA in patients over 70 years has not been determined. Clinical correlation is essential. Performed By: #### L 500.4050, L506.1000, L501.9985, L100.0100 #### [facility] [address] [place], [address] EST GFR - AA 96 mL/min Normal >60 [facility] Comment on above: Order Comment: 134 Result Comment: Afri can Liberian GFR Calc Performed By: #### L 500.4050, L506.1000, L501.9985, L100.0100 #### [facility] [address] [place], [address] GAP 5 Normal 5-15 [facility] Comment on above: Order Comment: 134 Performed By: #### L 500.4050, L506.1000, L501.9985, L100.0100 #### [facility] [address] [place], [address] GFR/1.73 sq M.predicted among non-blacks MDRD (S/P/Bld) [Vol rate/Area] 79 mL/min/{1.73_m2} Normal >60 [facility] Comment on above: Order Comment: 134 Result Comment: Non- GFR Calc Performed By: #### L 500.4050, L506.1000, L501.9985, L100.0100 #### [facility] [address] [place], [address] Globulin (S) [Mass/Vol] 4.9 g/dL High 2.2-4.2 [facility] Comment on above: Order Comment: 134 Performed By: #### L 500.4050, L506.1000, L501.9985, L100.0100 #### [facility] [address] [place], [address] Glucose [Mass/Vol] 168 mg/dL High 74-106 [facility] Comment on above: Order Comment: 134 Result Comment: Fast ing Glucose result greater than or equal to 126 mg/dL suggests DIABETES MELLITUS per A.D.A. criteria. Performed By: #### L 500.4050, L506.1000, L501.9985, L100.0100 #### [facility] [address] [place], [address] Potassium [Moles/Vol] 4.2 mmol/L Normal 3.5-5.1 [facility] Comment on above: Order Comment: 134 Performed By: #### L 500.4050, L506.1000, L501.9985, L100.0100 #### [facility] [address] [place], [address] Sodium [Moles/Vol] 137 mmol/L Normal 136-145 [facility] Comment on above: Order Comment: 134 Performed By: #### L 500.4050, L506.1000, L501.9985, L100.0100 #### [facility] [address] [place], [address] T PROT 8.0 g/dL Normal 6.4-8.2 [facility] Comment on above: Order Comment: 134 Performed By: #### L 500.4050, L506.1000, L501.9985, L100.0100 #### [facility] [address] [place], [address] Urea nitrogen [Mass/Vol] 17 mg/dL Normal 7-18 [facility] Comment on above: Order Comment: 134 Performed By: #### L 500.4050, L506.1000, L501.9985, L100.0100 #### [facility] [address] [place], [address] Eosinophil percentageOrdered By: Shayna Malhotra on 07-09-2024 Eosinophils/100 WBC (Bld) 5.9 % High 0-5 [facility] Erythrocyte distribution wid th (RBC) [Ratio]Ordered By: Shayna Malhotra on 07-09-2024 Erythrocyte distribution width (RBC) [Entitic vol] 52.1 fL High 35.1-43.9 [facility] Erythrocyte distribution wid th ratioOrdered By: Shayna Malhotra on 07-09-2024 Erythrocyte distribution width (RBC) [Ratio] 15.9 % High 11.6-14.6 [facility] Erythrocyte distribution wid th standard deviationOrdered By: Shayna Malhotra on 07-09-2024 Erythrocyte distribution width (RBC) [Ratio] 52.1 fl High 35.1-43.9 [facility] Estimated glomerular filtrat ion rate (GFR) AmericanOrdered By: Shayna Malhotra on 07-09-2024 Estimated GFR (MDRD) Amer 96 mL/min >60 [facility] Comment on above: GFR Calc Glomerular filtration rate ( GFR) estimationOrdered By: Shayna Malhotra on 07-09-2024 Estimated GFR (MDRD) Non-Af Amer 79 mL/min >60 [facility] Comment on above: Non- GFR Calc GFR/1.73 sq M.predicted among non-blacks MDRD (S/P/Bld) [Vol rate/Area] 79 mL/min/{1.73_m2} >60 [facility] Comment on above: Non- GFR Calc Glucose measurementOrdered B y: Shayna Malhotra on 07-09-2024 Glucose [Mass/Vol] 168 mg/dL High 74-106 [facility] Comment on above: Fasting Glucose resu lt greater than or equal to 126 mg/dL suggests DIABETES MELLITUS per A.D.A. criteria. Hematocrit Auto (Bld) [Volum e fraction]Ordered By: Shayna Malhotra on 07-09-2024 Hematocrit (Bld) [Volume fraction] 38.2 % 37-47 [facility] Hemoglobin A1con 07-09-2024 HbA1c (Bld) [Mass fraction] 6.6 % High 3.8-5.6 [facility] Comment on above: Order Comment: 134 Result Comment: Norm al < 5.7 % Prediabetic 5.7 - 6.4 % Diabetic >or= 6.5 % Please note range changes. Performed By: #### L 500.4050, L506.1000, L501.9985, L100.0100 #### [facility] [address] [place], [address] Hemoglobin A1c percentageOrd ered By: Shayna Malhotra on 07-09-2024 HbA1c (Bld) [Mass fraction] 6.6 % High 3.8-5.6 [facility] Comment on above: Normal < 5.7 % Predi abetic 5.7 - 6.4 % Diabetic >or= 6.5 % Please note range changes. Hemoglobin measurementOrdere d By: Shayna Malhotra on 07-09-2024 Hemoglobin (Bld) [Mass/Vol] 12.4 g/dL 12.0-15.0 [facility] Immature granulocytes/100 WB C Auto (Bld)Ordered By: Shayna Malhotra on 07-09-2024 Immature granulocytes/100 WBC (Bld) 0.200 % 0.0-0.9 [facility] Comment on above: IG% - Immature Granu locytes (promyelocytes, myelocytes and metamyelocytes) > 1% indicates that a LEFT SHIFT is Present. Laboratory - Chemistry and C hemistry - challengeOrdered By: Shayna Malhotra on 07-09-2024 AST [Catalytic activity/Vol] 35 U/L 15-37 [facility] Lymphocytes Auto (Unsp spec) [#/Vol]Ordered By: Shaynadesi Malhotra on 07-09-2024 Lymphocytes (Bld) [#/Vol] 0.82 10*3/uL Low 0.83-4.51 [facility] Lymphocytes/100 WBC Auto (Un sp spec)Ordered By: Shayna Malhotra on 07-09-2024 Lymphocytes/100 WBC (Bld) 20.2 % 19-41 [facility] MCV (mean corpuscular volume ) determinationOrdered By: Shayna Malhotra on 07-09-2024 MCV (RBC) [Entitic vol] 89.5 fL 81-99 [facility] Mean corpuscular hemoglobin (MCH) determinationOrdered By: Shayna Malhotra on 07-09-2024 MCH (RBC) [Entitic mass] 29.0 pg 27.0-32.0 [facility] Mean corpuscular hemoglobin concentration (MCHC) determinationOrdered By: Shayna Malhotra on 07-09-2024 MCHC (RBC) [Mass/Vol] 32.5 g/dL 32-36 [facility] Mean platelet volume determi nationOrdered By: Shayna Malhotra on 07-09-2024 Platelet mean volume (Bld) [Entitic vol] 11.0 fL 6.2-12.0 [facility] Monocyte percentageOrdered B y: Shayna Malhotra on 07-09-2024 Monocytes/100 WBC (Bld) 9.6 % 0-10 [facility] Neutrophil percentageOrdered By: Shayna Malhotra on 07-09-2024 Neutrophils/100 WBC (Bld) 63.1 % 47-70 [facility] Nucleated red blood cell per centageOrdered By: Shayna Malhotra on 07-09-2024 Nucleated RBC/100 WBC (Bld) [Ratio] 0 % 0-5 [facility] Platelet countOrdered By: Maryanne Malhotra on 07-09-2024 Platelets (Bld) [#/Vol] 116 10*3/uL Low 150-450 [facility] Potassium measurementOrdered By: Shayna Malhotra on 07-09-2024 Potassium [Moles/Vol] 4.2 mmol/L 3.5-5.1 [facility] RBC Auto (Bld) [#/Vol]Ordere d By: Shayna Malhotra on 07-09-2024 RBC (Bld) [#/Vol] 4.27 10*6/uL 4.2-5.4 [facility] Serum anion gap measurementO rdered By: Shayna Malhotra on 07-09-2024 Anion gap [Moles/Vol] 5 mmol/L 5-15 [facility] Serum globulin measurementOr dered By: Shayna Malhotra on 07-09-2024 Globulin (S) [Mass/Vol] 4.9 g/dL High 2.2-4.2 [facility] Serum or plasma alanine burnette otransferase (ALT) measurementOrdered By: Shayna Malhotra on 07-09-2024 ALT [Catalytic activity/Vol] 27 U/L 13-56 [facility] Serum or plasma albumin kim urement (mass/volume)Ordered By: Shayna Malhotra on 07-09-2024 Albumin [Mass/Vol] 3.1 g/dL Low 3.2-5.0 [facility] Serum or plasma alkaline regina sphatase measurementOrdered By: Shayna Malhotra on 07-09-2024 ALP [Catalytic activity/Vol] 126 U/L High 45-117 [facility] Serum or plasma calcium kim urement (mass/volume)Ordered By: Shayna Malhotra on 07-09-2024 Calcium [Mass/Vol] 9.3 mg/dL 8.5-10.1 [facility] Serum or plasma creatinine m easurement (mass/volume)Ordered By: Shayna Malhotra on 07-09-2024 Creatinine [Mass/Vol] 0.76 mg/dL 0.55-1.02 [facility] Comment on above: The validity of the calculated GFR & GFRAA in patients over 70 years has not been determined. Clinical correlation is essential. Serum or plasma urea nitroge n measurement (mass/volume)Ordered By: Shayna Malhotra on 07-09-2024 Urea nitrogen [Mass/Vol] 17 mg/dL 7-18 [facility] Sodium levelOrdered By: Paty Malhotra on 07-09-2024 Sodium [Moles/Vol] 137 mmol/L 136-145 [facility] Total proteinOrdered By: Evi Malhotra on 07-09-2024 Protein [Mass/Vol] 8.0 g/dL 6.4-8.2 [facility] Vitamin D,25 Hydroxyon 07-09 Vitamin D 25-OH 44.8 ng/mL Normal [facility] Comment on above: Order Comment: 134 Result Comment: Maricarmen min D 25(OH) Status Range Deficiency <20 ng/mL (50nmol/L) Insufficiency 20 - 30 ng/mL (50 - 75 nmol/L) Sufficiency 30 - 100 ng/mL (75 - 250 nmol/L) Toxicity >100 ng/mL (>250 nmol/L) Performed By: #### L 500.4050, L506.1000, L501.9985, L100.0100 #### [facility] [address] [place], [address] White blood cell (WBC) count Ordered By: Shayna Malhotra on 07-09-2024 WBC (Bld) [#/Vol] 4.1 10*3/uL Low 4.4-11.0 [facility] MR/BMS.Bon 07-04-2024 MR/BMS.[facility] [address] [place] [address] OFFICE VISIT Date of Service: 07/04/24 MR#: [id number] Acct: [id number] Name: VIDA NINA Rep #: [id number] : 1950 Provider: Dr. Shayna gomes MD Age/Sex: 73/F Location: [facility] Status: Signed Intake Vital [...] Ankle Pain Chief Complaint: L ankle pain Therapy Coordinator Required: No Accompanied by: Self Is patient [...] TID #0 grams 11/24/21 07/04/24 Rx powder ([facility]) quetiapine 100 mg tablet 300 mg [...] a c (more content not included)... Normal [facility] MR/BMS.Mily 05-28-2024 MR/BMS.[facility] [address] [place] [address] OFFICE VISIT Date of Service: 05/28/24 MR#: [id number] Acct: [id number] Name: VIDA NINA Rep #: [id number] : 1950 Provider: Dr. Shayna gomes MD Age/Sex: 73/F Location[place] [facility] Status: Signed Intake Vital Signs 01/09/23 17:15 [...] Intake Visit Reasons: Annual/Physical Chief Complaint: annual/physical Therapy Coordinator Required: No Accompanied by: Self Is patient [...] powder [facility] 05/28/24 History Lite Strips) blood[facility]glucose [facility] 05/28/24 History Lite Meter kit) lancets 28 gauge ([facility] 11/23/21 05/28/24 History Lancets) nystatin 100,000 unit/gram topical 1 applic topical TID #0 grams 11/24/21 05/28/24 Rx powder ([facility]) quetiapine 100 mg tablet 300 mg [...] here in the office. She lives at [facility]. She checked herself in there a few years ago as she felt it was in (more content not included)... Normal [facility] Absolute lymphocyte countOrd ered By: Shayna Malhotra on 07-08-2023 Lymphocytes Auto (Unsp spec) [#/Vol] 0.97 10*3/uL 0.83-4.51 [facility] Automated lymphocyte count a s percentage of total leukocytesOrdered By: Shayna Malhotra on 07-08-2023 Lymphocytes/100 WBC Auto (Unsp spec) 21.6 % 19-41 [facility] Basophil percentageOrdered B y: Shayna Malhotra on 07-08-2023 Basophils/100 WBC (Bld) 0.7 % 0-1 [facility] Bilirubin [Mass/Vol] 0.60 mg/dL 0.20-1.00 [facility] Comment on above: For patients on eltr ombopag therapy, use of Dimension [place] TBIL is not recommended. Chloride [Moles/Vol] 109 mmol/L 98-107 [facility] Eosinophils/100 WBC (Bld) 2.4 % 0-5 [facility] Glucose [Mass/Vol] 204 mg/dL 74-106 [facility] Comment on above: Glucose result great er than or equal to 200 mg/dLsuggests DIABETES MELLITUS per A.D.A. criteria. Hemoglobin (Bld) [Mass/Vol] 12.6 g/dL 12.0-15.0 [facility] Monocytes/100 WBC (Bld) 8.7 % 0-10 [facility] Neutrophils (Bld) [#/Vol] 3.0 10*3/uL 2.0-7.7 [facility] Neutrophils/100 WBC (Bld) 66.4 % 47-70 [facility] Potassium [Moles/Vol] 4.4 mmol/L 3.5-5.1 [facility] Protein [Mass/Vol] 8.0 g/dL 6.4-8.2 [facility] Sodium [Moles/Vol] 137 mmol/L 136-145 [facility] WBC (Bld) [#/Vol] 4.5 10*3/uL 4.4-11.0 [facility] Determination of erythrocyte mean corpuscular volume (MCV)Ordered By: Shayna Malhotra on 07-08-2023 MCV (RBC) [Entitic vol] 90.3 fL 81-99 [facility] Erythrocyte distribution wid th ratioOrdered By: Shayna Malhotra on 07-08-2023 Erythrocyte distribution width (RBC) [Ratio] 15.5 % 11.6-14.6 [facility] Erythrocyte distribution wid th standard deviationOrdered By: Shayna Malhotra on 07-08-2023 Erythrocyte distribution width (RBC) [Entitic vol] 51.9 fL 35.1-43.9 [facility] Hematocrit Auto (Bld) [Volum e fraction]Ordered By: Shayna Malhotra on 07-08-2023 Hematocrit (Bld) [Volume fraction] 39.9 % 37-47 [facility] Immature granulocytes/100 WB C Auto (Bld)Ordered By: Shayna Malhotra on 07-08-2023 Immature granulocytes/100 WBC (Bld) 0.200 % 0.0-0.9 [facility] Comment on above: IG% - Immature Granu locytes (promyelocytes, myelocytes and metamyelocytes) > 1% indicates that a LEFT SHIFT is Present. Laboratory - Chemistry and C hemistry - challengeOrdered By: Shayna Malhotra on 07-08-2023 Albumin/Globulin [Mass ratio] 0.7 {ratio} 0.9-2.4 [facility] ALP [Catalytic activity/Vol] 126 U/L 45-117 [facility] ALT [Catalytic activity/Vol] 34 U/L 13-56 [facility] CO2 [Moles/Vol] 24.0 mmol/L 21.0-32.0 [facility] Globulin (S) [Mass/Vol] 4.7 g/dL 2.2-4.2 [facility] Urea nitrogen/Creatinine [Mass ratio] 17.2 mg/mg 10-20 [facility] - Hematology and Cell countsOrdered By: Shayna Malhotra on 07-08-2023 MCH (RBC) [Entitic mass] 28.5 pg 27.0-32.0 [facility] MCHC (RBC) [Mass/Vol] 31.6 g/dL 32-36 [facility] Nucleated RBC/100 WBC (Bld) [Ratio] 0 % 0-5 [facility] Platelets (Bld) [#/Vol] 130 10*3/uL 150-450 [facility] No Panel InformationOrdered By: Shayna Malhotra on 07-08-2023 Estimated GFR (MDRD) Amer 83 mL/min >60 [facility] Comment on above: GFR Calc Estimated GFR (MDRD) Non-Af Amer 68 mL/min >60 [facility] Comment on above: Non- GFR Calc Vitamin D 25-Hydroxy 36.2 ng/mL [facility] Comment on above: Vitamin D 25(OH) Sta tus Range Deficiency <20 ng/mL (50nmol/L) Insufficiency 20 - 30 ng/mL (50 - 75 nmol/L) Sufficiency 30 - 100 ng/mL (75 - 250 nmol/L) Toxicity >100 ng/mL (>250 nmol/L) Platelet mean volume Robert-Ec ker (Bld) [Entitic vol]Ordered By: Shayna Malhotra on 07-08-2023 Platelet mean volume (Bld) [Entitic vol] 11.5 fL 6.2-12.0 [facility] RBC Auto (Bld) [#/Vol]Ordere d By: Shayna Malhotra on 07-08-2023 RBC (Bld) [#/Vol] 4.42 10*6/uL 4.2-5.4 [facility] Serum or plasma calcium kim urement (mass/volume)Ordered By: Shayna Malhotra on 07-08-2023 Calcium [Mass/Vol] 9.3 mg/dL 8.5-10.1 [facility] Serum or plasma creatinine m easurement (mass/volume)Ordered By: Shayna Malhotra on 07-08-2023 Creatinine [Mass/Vol] 0.87 mg/dL 0.55-1.02 [facility] Comment on above: The validity of the calculated GFR & GFRAA in patients over 70 years has not been determined. Clinical correlation is essential. Serum or plasma urea nitroge n measurement (mass/volume)Ordered By: Shayna Malhotra on 07-08-2023 Urea nitrogen [Mass/Vol] 15 mg/dL 7-18 [facility] Thin prep Papanicolaou smear with manual screeningOrdered By: Shayna Malhotra on 07-08-2023 Thin prep Papanicolaou smear with manual screening 3.3 g/dL 3.2-5.0 [facility] Thin prep Papanicolaou smear with manual screening 38 U/L 15-37 [facility] Thin prep Papanicolaou smear with manual screening 4 5-15 [facility] Whole blood hemoglobin A1c/t otal hemoglobin ratio (mass fraction)Ordered By: Shayna Malhotra on 07-08-2023 HbA1c (Bld) [Mass fraction] 7.5 % 3.8-5.6 [facility] Comment on above: Normal < 5.7 % Predi abetic 5.7 - 6.4 % Diabetic >or= 6.5 % Please note range changes. Absolute lymphocyte countOrd ered By: [facility] on 04-08-2023 Lymphocytes Auto (Unsp spec) [#/Vol] 1.16 10*3/uL 0.83-4.51 [facility] Basophil percentageOrdered B y: [facility] on 04-08-2023 Basophils/100 WBC (Bld) 0.6 % 0-1 [facility] Bilirubin [Mass/Vol] 0.60 mg/dL 0.20-1.00 [facility] Comment on above: For patients on eltr ombopag therapy, use of Dimension [place] TBIL is not recommended. Chloride [Moles/Vol] 106 mmol/L 98-107 [facility] Eosinophils/100 WBC (Bld) 2.6 % 0-5 [facility] Glucose [Mass/Vol] 200 mg/dL 74-106 [facility] Comment on above: Glucose result great er than or equal to 200 mg/dLsuggests DIABETES MELLITUS per A.D.A. criteria. Neutrophils (Bld) [#/Vol] 3.3 10*3/uL 2.0-7.7 [facility] Neutrophils/100 WBC (Bld) 65.4 % 47-70 [facility] Potassium [Moles/Vol] 4.2 mmol/L 3.5-5.1 [facility] Protein [Mass/Vol] 8.1 g/dL 6.4-8.2 [facility] Sodium [Moles/Vol] 136 mmol/L 136-145 [facility] WBC (Bld) [#/Vol] 5.0 10*3/uL 4.4-11.0 [facility] Blood erythrocytes count (nu mber/volume)Ordered By: [facility] on 04-08-2023 RBC (Bld) [#/Vol] 4.50 10*6/uL 4.2-5.4 [facility] Blood hemoglobin measurement (mass/volume)Ordered By: [facility] on 04-08-2023 Hemoglobin (Bld) [Mass/Vol] 12.9 g/dL 12.0-15.0 [facility] Blood lymphocytes/100 leukoc ytesOrdered By: [facility] on 04-08-2023 Lymphocytes/100 WBC (Bld) 23.2 % 19-41 [facility] Blood monocytes/100 leukocyt esOrdered By: [facility] on 04-08-2023 Monocytes/100 WBC (Bld) 7.8 % 0-10 [facility] Blood platelet mean volumeOr dered By: [facility] on 04-08-2023 Platelet mean volume (Bld) [Entitic vol] 11.9 fL 6.2-12.0 [facility] Determination of erythrocyte mean corpuscular volume (MCV)Ordered By: [facility] on 04-08-2023 MCV (RBC) [Entitic vol] 89.6 fL 81-99 [facility] Hematocrit Auto (Bld) [Volum e fraction]Ordered By: [facility] on 04-08-2023 Hematocrit (Bld) [Volume fraction] 40.3 % 37-47 [facility] - Chemistry and C hemistry - challengeOrdered By: [facility] on 04-08-2023 ALP [Catalytic activity/Vol] 126 U/L 45-117 [facility] ALT [Catalytic activity/Vol] 35 U/L 13-56 [facility] CO2 [Moles/Vol] 24.0 mmol/L 21.0-32.0 [facility] Globulin (S) [Mass/Vol] 4.9 g/dL 2.2-4.2 [facility] Urea nitrogen/Creatinine [Mass ratio] 17.1 mg/mg 10-20 [facility] - Hematology and Cell countsOrdered By: [facility] on 04-08-2023 Erythrocyte distribution width (RBC) [Entitic vol] 51.4 fL 35.1-43.9 [facility] Erythrocyte distribution width (RBC) [Ratio] 15.6 % 11.6-14.6 [facility] Immature granulocytes/100 WBC (Bld) 0.400 % 0.0-0.9 [facility] Comment on above: IG% - Immature Granu locytes (promyelocytes, myelocytes and metamyelocytes) > 1% indicates that a LEFT SHIFT is Present. MCH (RBC) [Entitic mass] 28.7 pg 27.0-32.0 [facility] Nucleated RBC/100 WBC (Bld) [Ratio] 0 % 0-5 [facility] MCHC Auto (RBC) [Mass/Vol]Or dered By: [facility] on 04-08-2023 MCHC (RBC) [Mass/Vol] 32.0 g/dL 32-36 [facility] No Panel InformationOrdered By: [facility] on 04-08-2023 Estimated GFR (MDRD) Amer 82 mL/min >60 [facility] Comment on above: GFR Calc Estimated GFR (MDRD) Non-Af Amer 68 mL/min >60 [facility] Comment on above: Non- GFR Calc Vitamin D 25-Hydroxy 43.2 ng/mL [facility] Comment on above: Vitamin D 25(OH) Sta tus Range Deficiency <20 ng/mL (50nmol/L) Insufficiency 20 - 30 ng/mL (50 - 75 nmol/L) Sufficiency 30 - 100 ng/mL (75 - 250 nmol/L) Toxicity >100 ng/mL (>250 nmol/L) Platelets bldOrdered By: [facility] on 04-08-2023 Platelets (Bld) [#/Vol] 119 10*3/uL 150-450 [facility] Serum or plasma albumin kim urement (mass/volume)Ordered By: [facility] on 04-08-2023 Albumin [Mass/Vol] 3.2 g/dL 3.2-5.0 [facility] Serum or plasma albumin/glob ulin mass ratioOrdered By: [facility] on 04-08-2023 Albumin/Globulin [Mass ratio] 0.7 {ratio} 0.9-2.4 [facility] Serum or plasma calcium kim urement (mass/volume)Ordered By: [facility] on 04-08-2023 Calcium [Mass/Vol] 9.1 mg/dL 8.5-10.1 [facility] Serum or plasma creatinine m easurement (mass/volume)Ordered By: [facility] on 04-08-2023 Creatinine [Mass/Vol] 0.88 mg/dL 0.55-1.02 [facility] Comment on above: The validity of the calculated GFR & GFRAA in patients over 70 years has not been determined. Clinical correlation is essential. Serum or plasma urea nitroge n measurement (mass/volume)Ordered By: [facility] on 04-08-2023 Urea nitrogen [Mass/Vol] 15 mg/dL 7-18 [facility] Thin prep Papanicolaou smear with manual screeningOrdered By: [facility] on 04-08-2023 Thin prep Papanicolaou smear with manual screening 36 U/L 15-37 [facility] Thin prep Papanicolaou smear with manual screening 6 5-15 [facility] Whole blood hemoglobin A1c/t otal hemoglobin ratio (mass fraction)Ordered By: [facility] on 04-08-2023 HbA1c (Bld) [Mass fraction] 7.5 % 3.8-5.6 [facility] Comment on above: Normal < 5.7 % Predi abetic 5.7 - 6.4 % Diabetic >or= 6.5 % Please note range changes. Absolute lymphocyte countOrd ered By: Shayna Malhotra on 10-13-2022 Lymphocytes Auto (Unsp spec) [#/Vol] 1.32 10*3/uL 0.83-4.51 [facility] Basophil percentageOrdered B y: Shayna Malhotra on 10-13-2022 Basophils/100 WBC (Bld) 0.6 % 0-1 [facility] Bilirubin [Mass/Vol] 0.40 mg/dL 0.20-1.00 [facility] Comment on above: For patients on eltr ombopag therapy, use of Dimension [place] TBIL is not recommended. Chloride [Moles/Vol] 106 mmol/L 98-107 [facility] Eosinophils/100 WBC (Bld) 3.5 % 0-5 [facility] Glucose [Mass/Vol] 232 mg/dL 74-106 [facility] Comment on above: Glucose result great er than or equal to 200 mg/dLsuggests DIABETES MELLITUS per A.D.A. criteria. Neutrophils (Bld) [#/Vol] 3.2 10*3/uL 2.0-7.7 [facility] Neutrophils/100 WBC (Bld) 60.7 % 47-70 [facility] Potassium [Moles/Vol] 4.7 mmol/L 3.5-5.1 [facility] Protein [Mass/Vol] 8.1 g/dL 6.4-8.2 [facility] Sodium [Moles/Vol] 137 mmol/L 136-145 [facility] WBC (Bld) [#/Vol] 5.2 10*3/uL 4.4-11.0 [facility] Blood erythrocytes count (nu mber/volume)Ordered By: Shayna Malhotra on 10-13-2022 RBC (Bld) [#/Vol] 4.62 10*6/uL 4.2-5.4 [facility] Blood hemoglobin measurement (mass/volume)Ordered By: Shayna Malhotra on 10-13-2022 Hemoglobin (Bld) [Mass/Vol] 13.1 g/dL 12.0-15.0 [facility] Blood lymphocytes/100 leukoc ytesOrdered By: Shayna Malhotra on 10-13-2022 Lymphocytes/100 WBC (Bld) 25.4 % 19-41 [facility] Blood monocytes/100 leukocyt esOrdered By: Shayna Malhotra on 10-13-2022 Monocytes/100 WBC (Bld) 9.6 % 0-10 [facility] Blood platelet mean volumeOr dered By: Shayna Malhotra on 10-13-2022 Platelet mean volume (Bld) [Entitic vol] 11.1 fL 6.2-12.0 [facility] Determination of erythrocyte mean corpuscular volume (MCV)Ordered By: Shayna Malhotra on 10-13-2022 MCV (RBC) [Entitic vol] 90.3 fL 81-99 [facility] Hematocrit Auto (Bld) [Volum e fraction]Ordered By: Shayna Malhotra on 10-13-2022 Hematocrit (Bld) [Volume fraction] 41.7 % 37-47 [facility] - Chemistry and C hemistry - challengeOrdered By: Shayna Malhotra on 10-13-2022 ALP [Catalytic activity/Vol] 153 U/L 45-117 [facility] ALT [Catalytic activity/Vol] 45 U/L 13-56 [facility] CO2 [Moles/Vol] 25.0 mmol/L 21.0-32.0 [facility] Globulin (S) [Mass/Vol] 4.9 g/dL 2.2-4.2 [facility] Urea nitrogen/Creatinine [Mass ratio] 15.7 mg/mg 10-20 [facility] - Hematology and Cell countsOrdered By: Shayna Malhotra on 10-13-2022 Erythrocyte distribution width (RBC) [Entitic vol] 50.5 fL 35.1-43.9 [facility] Erythrocyte distribution width (RBC) [Ratio] 15.1 % 11.6-14.6 [facility] Immature granulocytes/100 WBC (Bld) 0.200 % 0.0-0.9 [facility] Comment on above: IG% - Immature Granu locytes (promyelocytes, myelocytes and metamyelocytes) > 1% indicates that a LEFT SHIFT is Present. MCH (RBC) [Entitic mass] 28.4 pg 27.0-32.0 [facility] Nucleated RBC/100 WBC (Bld) [Ratio] 0 % 0-5 [facility] MCHC Auto (RBC) [Mass/Vol]Or dered By: Shayna Malhotra on 10-13-2022 MCHC (RBC) [Mass/Vol] 31.4 g/dL 32-36 [facility] No Panel InformationOrdered By: Shayna Malhotra on 10-13-2022 Estimated GFR (MDRD) Amer 80 mL/min >60 [facility] Comment on above: GFR Calc Estimated GFR (MDRD) Non-Af Amer 66 mL/min >60 [facility] Comment on above: Non- GFR Calc Vitamin D 25-Hydroxy 57.3 ng/mL [facility] Comment on above: Vitamin D 25(OH) Sta tus Range Deficiency <20 ng/mL (50nmol/L) Insufficiency 20 - 30 ng/mL (50 - 75 nmol/L) Sufficiency 30 - 100 ng/mL (75 - 250 nmol/L) Toxicity >100 ng/mL (>250 nmol/L) Platelets bldOrdered By: Evi Malhotra on 10-13-2022 Platelets (Bld) [#/Vol] 139 10*3/uL 150-450 [facility] Serum or plasma albumin kim urement (mass/volume)Ordered By: Shayna Malhotra on 10-13-2022 Albumin [Mass/Vol] 3.2 g/dL 3.2-5.0 [facility] Serum or plasma albumin/glob ulin mass ratioOrdered By: Shayna Malhotra on 10-13-2022 Albumin/Globulin [Mass ratio] 0.7 {ratio} 0.9-2.4 [facility] Serum or plasma calcium kim urement (mass/volume)Ordered By: Shayna Malhotra on 10-13-2022 Calcium [Mass/Vol] 9.5 mg/dL 8.5-10.1 [facility] Serum or plasma creatinine m easurement (mass/volume)Ordered By: Shayna Malhotra on 10-13-2022 Creatinine [Mass/Vol] 0.89 mg/dL 0.55-1.02 [facility] Comment on above: The validity of the calculated GFR & GFRAA in patients over 70 years has not been determined. Clinical correlation is essential. Serum or plasma urea nitroge n measurement (mass/volume)Ordered By: Shayna Malhotra on 10-13-2022 Urea nitrogen [Mass/Vol] 14 mg/dL 7-18 [facility] Thin prep Papanicolaou smear with manual screeningOrdered By: Shayna Malhotra on 10-13-2022 Thin prep Papanicolaou smear with manual screening 49 U/L 15-37 [facility] Thin prep Papanicolaou smear with manual screening 6 5-15 [facility] No Panel InformationOrdered By: Shayna Malhotra on 08-12-2022 C-Peptide 2.9 ng/mL 1.1-4.4 [facility] Comment on above: C-Peptide reference interval is for fasting patients.Performed at: [facility] Director: Suhas Deal PhD, Phone: [phone] Absolute lymphocyte countOrd ered By: Shayna Malhotra on 07-13-2022 Lymphocytes Auto (Unsp spec) [#/Vol] 1.18 10*3/uL 0.83-4.51 [facility] Basophil percentageOrdered B y: Shayna Malhotra on 07-13-2022 Basophils/100 WBC (Bld) 0.7 % 0-1 [facility] Bilirubin [Mass/Vol] 0.90 mg/dL 0.20-1.00 [facility] Comment on above: For patients on eltr ombopag therapy, use of Dim[employer] [place] TBIL is not recommended. Chloride [Moles/Vol] 104 mmol/L 98-107 [facility] Eosinophils/100 WBC (Bld) 3.3 % 0-5 [facility] Glucose [Mass/Vol] 314 mg/dL 74-106 [facility] Comment on above: Glucose result great er than or equal to 200 mg/dLsuggests DIABETES MELLITUS per A.D.A. criteria. Neutrophils (Bld) [#/Vol] 3.5 10*3/uL 2.0-7.7 [facility] Neutrophils/100 WBC (Bld) 64.8 % 47-70 [facility] Potassium [Moles/Vol] 5.1 mmol/L 3.5-5.1 [facility] Comment on above: Slight Hemolysis, Re sult may be falsely increased. Protein [Mass/Vol] 8.2 g/dL 6.4-8.2 [facility] Sodium [Moles/Vol] 135 mmol/L 136-145 [facility] WBC (Bld) [#/Vol] 5.4 10*3/uL 4.4-11.0 [facility] Blood erythrocytes count (nu mber/volume)Ordered By: Shayna Malhotra on 07-13-2022 RBC (Bld) [#/Vol] 4.51 10*6/uL 4.2-5.4 [facility] Blood hemoglobin measurement (mass/volume)Ordered By: Shayna Malhotra on 07-13-2022 Hemoglobin (Bld) [Mass/Vol] 12.8 g/dL 12.0-15.0 [facility] Blood lymphocytes/100 leukoc ytesOrdered By: Shayna Malhotra on 07-13-2022 Lymphocytes/100 WBC (Bld) 21.9 % 19-41 [facility] Blood monocytes/100 leukocyt esOrdered By: Shayna Malhotra on 07-13-2022 Monocytes/100 WBC (Bld) 9.1 % 0-10 [facility] Blood platelet mean volumeOr dered By: Shayna Malhotra on 07-13-2022 Platelet mean volume (Bld) [Entitic vol] 11.2 fL 6.2-12.0 [facility] Determination of erythrocyte mean corpuscular volume (MCV)Ordered By: Shayna Malhotra on 07-13-2022 MCV (RBC) [Entitic vol] 87.1 fL 81-99 [facility] Hematocrit Auto (Bld) [Volum e fraction]Ordered By: Shayna Malhotra on 07-13-2022 Hematocrit (Bld) [Volume fraction] 39.3 % 37-47 [facility] - Chemistry and C hemistry - challengeOrdered By: Shayna Malhotra on 07-13-2022 ALP [Catalytic activity/Vol] 159 U/L 45-117 [facility] ALT [Catalytic activity/Vol] 35 U/L 13-56 [facility] CO2 [Moles/Vol] 23.0 mmol/L 21.0-32.0 [facility] Globulin (S) [Mass/Vol] 4.9 g/dL 2.2-4.2 [facility] Urea nitrogen/Creatinine [Mass ratio] 16.6 mg/mg 10-20 [facility] - Hematology and Cell countsOrdered By: Shayna Malhotra on 07-13-2022 Erythrocyte distribution width (RBC) [Entitic vol] 49.6 fL 35.1-43.9 [facility] Erythrocyte distribution width (RBC) [Ratio] 15.7 % 11.6-14.6 [facility] Immature granulocytes/100 WBC (Bld) 0.200 % 0.0-0.9 [facility] Comment on above: IG% - Immature Granu locytes (promyelocytes, myelocytes and metamyelocytes) > 1% indicates that a LEFT SHIFT is Present. MCH (RBC) [Entitic mass] 28.4 pg 27.0-32.0 [facility] Nucleated RBC/100 WBC (Bld) [Ratio] 0 % 0-5 [facility] MCHC Auto (RBC) [Mass/Vol]Or dered By: Shayna Malhotra on 07-13-2022 MCHC (RBC) [Mass/Vol] 32.6 g/dL 32-36 [facility] No Panel InformationOrdered By: Shayna Malhotra on 07-13-2022 Estimated GFR (MDRD) Amer 74 mL/min >60 [facility] Comment on above: GFR Calc Estimated GFR (MDRD) Non-Af Amer 61 mL/min >60 [facility] Comment on above: Non- GFR Calc Vitamin D 25-Hydroxy 47.5 ng/mL [facility] Comment on above: Vitamin D 25(OH) Sta tus Range Deficiency <20 ng/mL (50nmol/L) Insufficiency 20 - 30 ng/mL (50 - 75 nmol/L) Sufficiency 30 - 100 ng/mL (75 - 250 nmol/L) Toxicity >100 ng/mL (>250 nmol/L) Platelets bldOrdered By: Evi Malhotra on 07-13-2022 Platelets (Bld) [#/Vol] 132 10*3/uL 150-450 [facility] Serum or plasma albumin kim urement (mass/volume)Ordered By: Shayna Malhotra on 07-13-2022 Albumin [Mass/Vol] 3.3 g/dL 3.2-5.0 [facility] Serum or plasma albumin/glob ulin mass ratioOrdered By: Shayna Malhotra on 07-13-2022 Albumin/Globulin [Mass ratio] 0.7 {ratio} 0.9-2.4 [facility] Serum or plasma calcium kim urement (mass/volume)Ordered By: Shayna aMlhotra on 07-13-2022 Calcium [Mass/Vol] 9.6 mg/dL 8.5-10.1 [facility] Serum or plasma creatinine m easurement (mass/volume)Ordered By: Shayna Malhotra on 07-13-2022 Creatinine [Mass/Vol] 0.97 mg/dL 0.55-1.02 [facility] Comment on above: The validity of the calculated GFR & GFRAA in patients over 70 years has not been determined. Clinical correlation is essential. Serum or plasma urea nitroge n measurement (mass/volume)Ordered By: Shayna Malhotra on 07-13-2022 Urea nitrogen [Mass/Vol] 16 mg/dL 7-18 [facility] Thin prep Papanicolaou smear with manual screeningOrdered By: Shayna Malhotra on 07-13-2022 Thin prep Papanicolaou smear with manual screening 48 U/L 15-37 [facility] Comment on above: Slight Hemolysis, Re sult may be falsely increased. Thin prep Papanicolaou smear with manual screening 8 5-15 [facility] Absolute lymphocyte countOrd ered By: [facility] on 06-08-2022 Lymphocytes Auto (Unsp spec) [#/Vol] 1.23 10*3/uL 0.83-4.51 [facility] Basophil percentageOrdered B y: [facility] on 06-08-2022 Basophils/100 WBC (Bld) 0.6 % 0-1 [facility] Bilirubin [Mass/Vol] 0.50 mg/dL 0.20-1.00 [facility] Comment on above: For patients on eltr ombopag therapy, use of Dimension [place] TBIL is not recommended. Chloride [Moles/Vol] 103 mmol/L 98-107 [facility] Cholesterol [Mass/Vol] 116 mg/dL <200 [facility] Comment on above: <200 mg/dL Desirable 200-240 mg/dL Borderline >240 mg/dL High Risk Eosinophils/100 WBC (Bld) 3.3 % 0-5 [facility] Glucose [Mass/Vol] 266 mg/dL 74-106 [facility] Comment on above: Glucose result great er than or equal to 200 mg/dLsuggests DIABETES MELLITUS per A.D.A. criteria. Neutrophils (Bld) [#/Vol] 2.9 10*3/uL 2.0-7.7 [facility] Neutrophils/100 WBC (Bld) 61.4 % 47-70 [facility] Potassium [Moles/Vol] 4.3 mmol/L 3.5-5.1 [facility] Protein [Mass/Vol] 7.6 g/dL 6.4-8.2 [facility] Sodium [Moles/Vol] 134 mmol/L 136-145 [facility] Triglyceride [Mass/Vol] 86 mg/dL <199 [facility] Comment on above: The drugs N-Acetylcy steine and Metamizole may falsely depress this assay.Serum Triglycerides Reference Interval Normal <150 mg/dL Borderline high 150 - 199 mg/dL High 200 - 499 mg/dL Very High > or = 500 mg/dL WBC (Bld) [#/Vol] 4.8 10*3/uL 4.4-11.0 [facility] Blood erythrocytes count (nu mber/volume)Ordered By: [facility] on 06-08-2022 RBC (Bld) [#/Vol] 4.47 10*6/uL 4.2-5.4 [facility] Blood hemoglobin measurement (mass/volume)Ordered By: [facility] on 06-08-2022 Hemoglobin (Bld) [Mass/Vol] 12.4 g/dL 12.0-15.0 [facility] Blood lymphocytes/100 leukoc ytesOrdered By: [facility] on 06-08-2022 Lymphocytes/100 WBC (Bld) 25.7 % 19-41 [facility] Blood monocytes/100 leukocyt esOrdered By: [facility] on 06-08-2022 Monocytes/100 WBC (Bld) 8.8 % 0-10 [facility] Blood platelet mean volumeOr dered By: [facility] on 06-08-2022 Platelet mean volume (Bld) [Entitic vol] 11.1 fL 6.2-12.0 [facility] Determination of erythrocyte mean corpuscular volume (MCV)Ordered By: [facility] on 06-08-2022 MCV (RBC) [Entitic vol] 88.8 fL 81-99 [facility] Hematocrit Auto (Bld) [Volum e fraction]Ordered By: [facility] on 06-08-2022 Hematocrit (Bld) [Volume fraction] 39.7 % 37-47 [facility] - Chemistry and C hemistry - challengeOrdered By: [facility] on 06-08-2022 ALP [Catalytic activity/Vol] 142 U/L 45-117 [facility] ALT [Catalytic activity/Vol] 36 U/L 13-56 [facility] CO2 [Moles/Vol] 22.0 mmol/L 21.0-32.0 [facility] Globulin (S) [Mass/Vol] 4.8 g/dL 2.2-4.2 [facility] Urea nitrogen/Creatinine [Mass ratio] 17.1 mg/mg 10-20 [facility] - Hematology and Cell countsOrdered By: [facility] on 06-08-2022 Erythrocyte distribution width (RBC) [Entitic vol] 48.8 fL 35.1-43.9 [facility] Erythrocyte distribution width (RBC) [Ratio] 14.9 % 11.6-14.6 [facility] Immature granulocytes/100 WBC (Bld) 0.200 % 0.0-0.9 [facility] Comment on above: IG% - Immature Granu locytes (promyelocytes, myelocytes and metamyelocytes) > 1% indicates that a LEFT SHIFT is Present. MCH (RBC) [Entitic mass] 27.7 pg 27.0-32.0 [facility] Nucleated RBC/100 WBC (Bld) [Ratio] 0 % 0-5 [facility] MCHC Auto (RBC) [Mass/Vol]Or dered By: [facility] on 06-08-2022 MCHC (RBC) [Mass/Vol] 31.2 g/dL 32-36 [facility] No Panel InformationOrdered By: [facility] on 06-08-2022 Estimated GFR (MDRD) Amer 82 mL/min >60 [facility] Comment on above: GFR Calc Estimated GFR (MDRD) Non-Af Amer 68 mL/min >60 [facility] Comment on above: Non- GFR Calc Vitamin D 25-Hydroxy 56.8 ng/mL [facility] Comment on above: Vitamin D 25(OH) Sta tus Range Deficiency <20 ng/mL (50nmol/L) Insufficiency 20 - 30 ng/mL (50 - 75 nmol/L) Sufficiency 30 - 100 ng/mL (75 - 250 nmol/L) Toxicity >100 ng/mL (>250 nmol/L) Platelets bldOrdered By: [facility] on 06-08-2022 Platelets (Bld) [#/Vol] 145 10*3/uL 150-450 [facility] Serum or plasma albumin kim urement (mass/volume)Ordered By: [facility] on 06-08-2022 Albumin [Mass/Vol] 2.8 g/dL 3.2-5.0 [facility] Serum or plasma albumin/glob ulin mass ratioOrdered By: [facility] on 06-08-2022 Albumin/Globulin [Mass ratio] 0.6 {ratio} 0.9-2.4 [facility] Serum or plasma calcium kim urement (mass/volume)Ordered By: [facility] on 06-08-2022 Calcium [Mass/Vol] 9.0 mg/dL 8.5-10.1 [facility] Serum or plasma cholesterol in HDL measurement (mass/volume)Ordered By: [facility] on 06-08-2022 Cholesterol in HDL [Mass/Vol] 58 mg/dL >40 [facility] Comment on above: The drugs N-Acetylcy steine and Metamizole may falsely depress this assay. Reference Range HDL <40 mg/dL Low HDL Cholesterol HDL >or= 60 mg/dL High HDL Cholesterol Serum or plasma cholesterol in VLDL measurement (mass/volume)Ordered By: [facility] on 06-08-2022 Cholesterol in VLDL [Mass/Vol] 17 mg/dL 5-40 [facility] Serum or plasma creatinine m easurement (mass/volume)Ordered By: [facility] on 06-08-2022 Creatinine [Mass/Vol] 0.88 mg/dL 0.55-1.02 [facility] Comment on above: The validity of the calculated GFR & GFRAA in patients over 70 years has not been determined. Clinical correlation is essential. Serum or plasma low density lipoprotein (LDL) cholesterol measurement (mass/volume)Ordered By: [facility] on 06-08-2022 Cholesterol in LDL [Mass/Vol] 41 mg/dL 0-130 [facility] Serum or plasma urea nitroge n measurement (mass/volume)Ordered By: [facility] on 06-08-2022 Urea nitrogen [Mass/Vol] 15 mg/dL 7-18 [facility] Thin prep Papanicolaou smear with manual screeningOrdered By: [facility] on 06-08-2022 Thin prep Papanicolaou smear with manual screening 39 U/L 15-37 [facility] Thin prep Papanicolaou smear with manual screening 9 5-15 [facility] Whole blood hemoglobin A1c/t otal hemoglobin ratio (mass fraction)Ordered By: [facility] on 06-08-2022 HbA1c (Bld) [Mass fraction] 8.8 % 3.8-5.6 [facility] Comment on above: Normal < 5.7 % Predi abetic 5.7 - 6.4 % Diabetic >or= 6.5 % Please note range changes. Absolute lymphocyte countOrd ered By: Shayna Malhotra on 04-13-2022 Lymphocytes Auto (Unsp spec) [#/Vol] 1.30 10*3/uL 0.83-4.51 [facility] Basophil percentageOrdered B y: Shayna Malhotra on 04-13-2022 Basophils/100 WBC (Bld) 0.2 % 0-1 [facility] Bilirubin [Mass/Vol] 0.40 mg/dL 0.20-1.00 [facility] Comment on above: For patients on eltr ombopag therapy, use of [employer]ension [place] TBIL is not recommended. Chloride [Moles/Vol] 106 mmol/L 98-107 [facility] Eosinophils/100 WBC (Bld) 3.5 % 0-5 [facility] Glucose [Mass/Vol] 149 mg/dL 74-106 [facility] Comment on above: Fasting Glucose resu lt greater than or equal to 126 mg/dL suggests DIABETES MELLITUS per A.D.A. criteria. Neutrophils (Bld) [#/Vol] 2.5 10*3/uL 2.0-7.7 [facility] Neutrophils/100 WBC (Bld) 54.6 % 47-70 [facility] Potassium [Moles/Vol] 4.5 mmol/L 3.5-5.1 [facility] Protein [Mass/Vol] 7.8 g/dL 6.4-8.2 [facility] Sodium [Moles/Vol] 138 mmol/L 136-145 [facility] WBC (Bld) [#/Vol] 4.6 10*3/uL 4.4-11.0 [facility] Blood erythrocytes count (nu mber/volume)Ordered By: Shayna Malhotra on 04-13-2022 RBC (Bld) [#/Vol] 4.45 10*6/uL 4.2-5.4 [facility] Blood hemoglobin measurement (mass/volume)Ordered By: Shayna Malhotra on 04-13-2022 Hemoglobin (Bld) [Mass/Vol] 12.9 g/dL 12.0-15.0 [facility] Blood lymphocytes/100 leukoc ytesOrdered By: Shayna Malhotra on 04-13-2022 Lymphocytes/100 WBC (Bld) 28.4 % 19-41 [facility] Blood monocytes/100 leukocyt esOrdered By: Shayna Malhotra on 04-13-2022 Monocytes/100 WBC (Bld) 12.9 % 0-10 [facility] Blood platelet mean volumeOr dered By: Shayna Malhotra on 04-13-2022 Platelet mean volume (Bld) [Entitic vol] 11.1 fL 6.2-12.0 [facility] Determination of erythrocyte mean corpuscular volume (MCV)Ordered By: Shayna Malhotra on 04-13-2022 MCV (RBC) [Entitic vol] 90.8 fL 81-99 [facility] Hematocrit Auto (Bld) [Volum e fraction]Ordered By: Shayna Malhotra on 04-13-2022 Hematocrit (Bld) [Volume fraction] 40.4 % 37-47 [facility] Laboratory - Chemistry and C hemistry - challengeOrdered By: Shayna Malhotra on 04-13-2022 ALP [Catalytic activity/Vol] 144 U/L 45-117 [facility] ALT [Catalytic activity/Vol] 32 U/L 13-56 [facility] CO2 [Moles/Vol] 23.0 mmol/L 21.0-32.0 [facility] Globulin (S) [Mass/Vol] 4.8 g/dL 2.2-4.2 [facility] Urea nitrogen/Creatinine [Mass ratio] 15.3 mg/mg 10-20 [facility] Laboratory - Hematology and Cell countsOrdered By: Shayna Malhotra on 04-13-2022 Erythrocyte distribution width (RBC) [Entitic vol] 47.8 fL 35.1-43.9 [facility] Erythrocyte distribution width (RBC) [Ratio] 14.3 % 11.6-14.6 [facility] Immature granulocytes/100 WBC (Bld) 0.400 % 0.0-0.9 [facility] Comment on above: IG% - Immature Granu locytes (promyelocytes, myelocytes and metamyelocytes) > 1% indicates that a LEFT SHIFT is Present. MCH (RBC) [Entitic mass] 29.0 pg 27.0-32.0 [facility] Nucleated RBC/100 WBC (Bld) [Ratio] 0 % 0-5 [facility] MCHC Auto (RBC) [Mass/Vol]Or dered By: Shayna Malhotra on 04-13-2022 MCHC (RBC) [Mass/Vol] 31.9 g/dL 32-36 [facility] No Panel InformationOrdered By: Shayna Malhotra on 04-13-2022 Estimated GFR (MDRD) Amer 78 mL/min >60 [facility] Comment on above: GFR Calc Estimated GFR (MDRD) Non-Af Amer 65 mL/min >60 [facility] Comment on above: Non- GFR Calc Vitamin D 25-Hydroxy 63.8 ng/mL [facility] Comment on above: Vitamin D 25(OH) Sta tus Range Deficiency <20 ng/mL (50nmol/L) Insufficiency 20 - 30 ng/mL (50 - 75 nmol/L) Sufficiency 30 - 100 ng/mL (75 - 250 nmol/L) Toxicity >100 ng/mL (>250 nmol/L) Platelets bldOrdered By: Evi Malhotra on 04-13-2022 Platelets (Bld) [#/Vol] 157 10*3/uL 150-450 [facility] Serum or plasma albumin kim urement (mass/volume)Ordered By: Shayna Malhotra on 04-13-2022 Albumin [Mass/Vol] 3.0 g/dL 3.2-5.0 [facility] Serum or plasma albumin/glob ulin mass ratioOrdered By: Shayna Malhotra on 04-13-2022 Albumin/Globulin [Mass ratio] 0.6 {ratio} 0.9-2.4 [facility] Serum or plasma calcium kim urement (mass/volume)Ordered By: Shayna Malhotra on 04-13-2022 Calcium [Mass/Vol] 9.0 mg/dL 8.5-10.1 [facility] Serum or plasma creatinine m easurement (mass/volume)Ordered By: Shayna Malhotra on 04-13-2022 Creatinine [Mass/Vol] 0.92 mg/dL 0.55-1.02 [facility] Comment on above: The validity of the calculated GFR & GFRAA in patients over 70 years has not been determined. Clinical correlation is essential. Serum or plasma urea nitroge n measurement (mass/volume)Ordered By: Shayna Malhotra on 04-13-2022 Urea nitrogen [Mass/Vol] 14 mg/dL 7-18 [facility] Thin prep Papanicolaou smear with manual screeningOrdered By: Shayna Malhotra on 04-13-2022 Thin prep Papanicolaou smear with manual screening 40 U/L 15-37 [facility] Thin prep Papanicolaou smear with manual screening 9 5-15 [facility] Basophil percentageon 2021 Bilirubin [Mass/Vol] 0.80 mg/dL 0.20-1.00 [facility] Work Phone: Comment on above: For patients on eltr ombopag therapy, use of [employer] [place] TBIL is not recommended. Chloride [Moles/Vol] 103 mmol/L 98-107 [facility] Work Phone: Glucose [Mass/Vol] 218 mg/dL 74-106 [facility] Work Phone: Comment on above: Glucose result great er than or equal to 200 mg/dLsuggests DIABETES MELLITUS per A.D.A. criteria. Potassium [Moles/Vol] 4.2 mmol/L 3.5-5.1 [facility] Work Phone: Protein [Mass/Vol] 8.0 g/dL 6.4-8.2 [facility] Work Phone: Sodium [Moles/Vol] 135 mmol/L 136-145 [facility] Work Phone: WBC (Bld) [#/Vol] 8.6 10*3/uL 4.4-11.0 [facility] Work Phone: Blood erythrocytes count (nu mber/volume)on 01-01-2022 RBC (Bld) [#/Vol] 4.72 10*6/uL 4.2-5.4 [facility] Work Phone: Blood hemoglobin measurement (mass/volume)on 01-01-2022 Hemoglobin (Bld) [Mass/Vol] 13.5 g/dL 12.0-15.0 [facility] Work Phone: Blood platelet mean volumeon 01-01-2022 Platelet mean volume (Bld) [Entitic vol] 11.0 fL 6.2-12.0 [facility] Work Phone: Determination of erythrocyte mean corpuscular volume (MCV)on 01-01-2022 MCV (RBC) [Entitic vol] 86.2 fL 81-99 [facility] Work Phone: Hematocrit Auto (Bld) [Volum e fraction]on 01-01-2022 Hematocrit (Bld) [Volume fraction] 40.7 % 37-47 [facility] Work Phone: Laboratory - Chemistry and C hemistry - challengeon 01-01-2022 ALP [Catalytic activity/Vol] 140 U/L 45-117 [facility] Work Phone: ALT [Catalytic activity/Vol] 35 U/L 13-56 [facility] Work Phone: CO2 [Moles/Vol] 23.0 mmol/L 21.0-32.0 [facility] Work Phone: Globulin (S) [Mass/Vol] 4.9 g/dL 2.2-4.2 [facility] Work Phone: Urea nitrogen/Creatinine [Mass ratio] 13.8 mg/mg 10-20 [facility] Work Phone: Laboratory - Hematology and Cell countson 01-01-2022 Erythrocyte distribution width (RBC) [Entitic vol] 55.6 fL 35.1-43.9 [facility] Work Phone: Erythrocyte distribution width (RBC) [Ratio] 17.5 % 11.6-14.6 [facility] Work Phone: MCH (RBC) [Entitic mass] 28.6 pg 27.0-32.0 [facility] Work Phone: MCHC Auto (RBC) [Mass/Vol]on 01-01-2022 MCHC (RBC) [Mass/Vol] 33.2 g/dL 32-36 [facility] Work Phone: No Panel Informationon 01-01 Estimated GFR (MDRD) Amer 64 mL/min >60 [facility] Work Phone: Comment on above: GFR Calc Estimated GFR (MDRD) Non-Af Amer 53 mL/min >60 [facility] Work Phone: Comment on above: Non- GFR Calc Platelets bldon 01-01-2022 Platelets (Bld) [#/Vol] 141 10*3/uL 150-450 [facility] Work Phone: Serum or plasma albumin kim urement (mass/volume)on 01-01-2022 Albumin [Mass/Vol] 3.1 g/dL 3.2-5.0 [facility] Work Phone: Serum or plasma albumin/glob ulin mass ratioon 01-01-2022 Albumin/Globulin [Mass ratio] 0.6 {ratio} 0.9-2.4 [facility] Work Phone: Serum or plasma calcium kim urement (mass/volume)on 01-01-2022 Calcium [Mass/Vol] 9.3 mg/dL 8.5-10.1 [facility] Work Phone: Serum or plasma creatinine m easurement (mass/volume)on 01-01-2022 Creatinine [Mass/Vol] 1.09 mg/dL 0.55-1.02 [facility] Work Phone: Comment on above: The validity of the calculated GFR & GFRAA in patients over 70 years has not been determined. Clinical correlation is essential. Serum or plasma urea nitroge n measurement (mass/volume)on 01-01-2022 Urea nitrogen [Mass/Vol] 15 mg/dL 7-18 [facility] Work Phone: Thin prep Papanicolaou smear with manual screeningon 01-01-2022 Thin prep Papanicolaou smear with manual screening 36 U/L 15-37 [facility] Work Phone: Thin prep Papanicolaou smear with manual screening 9 5-15 [facility] Work Phone: Whole blood hemoglobin A1c/t otal hemoglobin ratio (mass fraction)on 01-01-2022 HbA1c (Bld) [Mass fraction] 8.7 % 3.8-5.6 [facility] Work Phone: Comment on above: Normal < 5.7 % Predi abetic 5.7 - 6.4 % Diabetic >or= 6.5 % Please note range changes. Basophil percentageon 2021 Bilirubin [Mass/Vol] 0.40 mg/dL 0.20-1.00 [facility] Work Phone: Comment on above: For patients on eltr ombopag therapy, use of [employer] [place] TBIL is not recommended. Chloride [Moles/Vol] 103 mmol/L 98-107 [facility] Work Phone: Glucose [Mass/Vol] 216 mg/dL 74-106 [facility] Work Phone: Comment on above: Glucose result great er than or equal to 200 mg/dLsuggests DIABETES MELLITUS per A.D.A. criteria. Potassium [Moles/Vol] 4.4 mmol/L 3.5-5.1 [facility] Work Phone: Protein [Mass/Vol] 6.5 g/dL 6.4-8.2 [facility] Work Phone: Sodium [Moles/Vol] 136 mmol/L 136-145 [facility] Work Phone: WBC (Bld) [#/Vol] 6.2 10*3/uL 4.4-11.0 [facility] Work Phone: Blood erythrocytes count (nu mber/volume)on 12-01-2021 RBC (Bld) [#/Vol] 4.09 10*6/uL 4.2-5.4 [facility] Work Phone: Blood hemoglobin measurement (mass/volume)on 12-01-2021 Hemoglobin (Bld) [Mass/Vol] 11.3 g/dL 12.0-15.0 [facility] Work Phone: Blood platelet mean volumeon 12-01-2021 Platelet mean volume (Bld) [Entitic vol] 10.8 fL 6.2-12.0 [facility] Work Phone: Determination of erythrocyte mean corpuscular volume (MCV)on 12-01-2021 MCV (RBC) [Entitic vol] 85.8 fL 81-99 [facility] Work Phone: Comment on above: Delta: 79.2 on 11/27 Hematocrit Auto (Bld) [Volum e fraction]on 12-01-2021 Hematocrit (Bld) [Volume fraction] 35.1 % 37-47 [facility] Work Phone: Laboratory - Chemistry and C hemistry - challengeon 12-01-2021 ALP [Catalytic activity/Vol] 130 U/L 45-117 [facility] Work Phone: ALT [Catalytic activity/Vol] 48 U/L 13-56 [facility] Work Phone: CK [Catalytic activity/Vol] 27 U/L 26-192 [facility] Work Phone: CO2 [Moles/Vol] 27.0 mmol/L 21.0-32.0 [facility] Work Phone: Globulin (S) [Mass/Vol] 4.2 g/dL 2.2-4.2 [facility] Work Phone: Urea nitrogen/Creatinine [Mass ratio] 31.2 mg/mg 10-20 [facility] Work Phone: Laboratory - Hematology and Cell countson 12-01-2021 Erythrocyte distribution width (RBC) [Entitic vol] 48.3 fL 35.1-43.9 [facility] Work Phone: Erythrocyte distribution width (RBC) [Ratio] 15.4 % 11.6-14.6 [facility] Work Phone: MCH (RBC) [Entitic mass] 27.6 pg 27.0-32.0 [facility] Work Phone: MCHC Auto (RBC) [Mass/Vol]on 12-01-2021 MCHC (RBC) [Mass/Vol] 32.2 g/dL 32-36 [facility] Work Phone: Comment on above: Delta: 34.7 on 11/27 No Panel Informationon 06-28 -2022 Estimated GFR (MDRD) Amer 91 mL/min >60 [facility] Work Phone: Comment on above: GFR Calc Estimated GFR (MDRD) Non-Af Amer 76 mL/min >60 [facility] Work Phone: Comment on above: Non- GFR Calc Platelets bldon 12-01-2021 Platelets (Bld) [#/Vol] 231 10*3/uL 150-450 [facility] Work Phone: Serum or plasma albumin kim urement (mass/volume)on 12-01-2021 Albumin [Mass/Vol] 2.3 g/dL 3.2-5.0 [facility] Work Phone: Serum or plasma albumin/glob ulin mass ratioon 12-01-2021 Albumin/Globulin [Mass ratio] 0.5 {ratio} 0.9-2.4 [facility] Work Phone: Serum or plasma calcium kim urement (mass/volume)on 12-01-2021 Calcium [Mass/Vol] 8.8 mg/dL 8.5-10.1 [facility] Work Phone: Serum or plasma creatinine m easurement (mass/volume)on 12-01-2021 Creatinine [Mass/Vol] 0.80 mg/dL 0.55-1.02 [facility] Work Phone: Comment on above: The validity of the calculated GFR & GFRAA in patients over 70 years has not been determined. Clinical correlation is essential. Serum or plasma urea nitroge n measurement (mass/volume)on 12-01-2021 Urea nitrogen [Mass/Vol] 25 mg/dL 7-18 [facility] Work Phone: Thin prep Papanicolaou smear with manual screeningon 12-01-2021 Thin prep Papanicolaou smear with manual screening 69 U/L 15-37 [facility] Work Phone: Thin prep Papanicolaou smear with manual screening 6 5-15 [facility] Work Phone: Whole blood hemoglobin A1c/t otal hemoglobin ratio (mass fraction)on 12-01-2021 HbA1c (Bld) [Mass fraction] 10.6 % 3.8-5.6 [facility] Work Phone: Comment on above: Normal < 5.7 % Predi abetic 5.7 - 6.4 % Diabetic >or= 6.5 % Please note range changes. Basophil percentageon 2021 Bilirubin [Mass/Vol] 0.40 mg/dL 0.20-1.00 [facility] Work Phone: Comment on above: For patients on eltr ombopag therapy, use of [employer] [place] TBIL is not recommended. Chloride [Moles/Vol] 102 mmol/L 98-107 [facility] Work Phone: Glucose [Mass/Vol] 256 mg/dL 74-106 [facility] Work Phone: Comment on above: Glucose result great er than or equal to 200 mg/dLsuggests DIABETES MELLITUS per A.D.A. criteria. Potassium [Moles/Vol] 4.4 mmol/L 3.5-5.1 [facility] Work Phone: Protein [Mass/Vol] 7.0 g/dL 6.4-8.2 [facility] Work Phone: Sodium [Moles/Vol] 133 mmol/L 136-145 [facility] Work Phone: WBC (Bld) [#/Vol] 5.6 10*3/uL 4.4-11.0 [facility] Work Phone: Blood erythrocytes count (nu mber/volume)on 11-27-2021 RBC (Bld) [#/Vol] 4.47 10*6/uL 4.2-5.4 [facility] Work Phone: Blood hemoglobin measurement (mass/volume)on 11-27-2021 Hemoglobin (Bld) [Mass/Vol] 12.3 g/dL 12.0-15.0 [facility] Work Phone: Blood platelet mean volumeon 11-27-2021 Platelet mean volume (Bld) [Entitic vol] 11.9 fL 6.2-12.0 [facility] Work Phone: Determination of erythrocyte mean corpuscular volume (MCV)on 11-27-2021 MCV (RBC) [Entitic vol] 79.2 fL 81-99 [facility] Work Phone: Comment on above: Delta: 83.4 on 11/24 Hematocrit Auto (Bld) [Volum e fraction]on 11-27-2021 Hematocrit (Bld) [Volume fraction] 35.4 % 37-47 [facility] Work Phone: Laboratory - Chemistry and C hemistry - challengeon 11-27-2021 ALP [Catalytic activity/Vol] 127 U/L 45-117 [facility] Work Phone: ALT [Catalytic activity/Vol] 28 U/L 13-56 [facility] Work Phone: CO2 [Moles/Vol] 25.0 mmol/L 21.0-32.0 [facility] Work Phone: Globulin (S) [Mass/Vol] 4.6 g/dL 2.2-4.2 [facility] Work Phone: Urea nitrogen/Creatinine [Mass ratio] 15.9 mg/mg 10-20 [facility] Work Phone: Laboratory - Hematology and Cell countson 11-27-2021 Erythrocyte distribution width (RBC) [Entitic vol] 41.4 fL 35.1-43.9 [facility] Work Phone: Erythrocyte distribution width (RBC) [Ratio] 14.5 % 11.6-14.6 [facility] Work Phone: MCH (RBC) [Entitic mass] 27.5 pg 27.0-32.0 [facility] Work Phone: MCHC Auto (RBC) [Mass/Vol]on 11-27-2021 MCHC (RBC) [Mass/Vol] 34.7 g/dL 32-36 [facility]: No Panel Informationon 11-27 Estimated GFR (MDRD) Amer 108 mL/min >60 [facility] Work Phone: Comment on above: GFR Calc Estimated GFR (MDRD) Non-Af Amer 89 mL/min >60 [facility] Work Phone: Comment on above: Non- GFR Calc Platelets bldon 11-27-2021 Platelets (Bld) [#/Vol] 154 10*3/uL 150-450 [facility] Work Phone: Serum or plasma albumin kim urement (mass/volume)on 11-27-2021 Albumin [Mass/Vol] 2.4 g/dL 3.2-5.0 [facility] Work Phone: Serum or plasma albumin/glob ulin mass ratioon 11-27-2021 Albumin/Globulin [Mass ratio] 0.5 {ratio} 0.9-2.4 [facility] Work Phone: Serum or plasma calcium kim urement (mass/volume)on 11-27-2021 Calcium [Mass/Vol] 8.9 mg/dL 8.5-10.1 [facility] Work Phone: Serum or plasma creatinine m easurement (mass/volume)on 11-27-2021 Creatinine [Mass/Vol] 0.69 mg/dL 0.55-1.02 [facility] Work Phone: Comment on above: The validity of the calculated GFR & GFRAA in patients over 70 years has not been determined. Clinical correlation is essential. Serum or plasma urea nitroge n measurement (mass/volume)on 11-27-2021 Urea nitrogen [Mass/Vol] 11 mg/dL 7-18 [facility] Work Phone: Thin prep Papanicolaou smear with manual screeningon 11-27-2021 Thin prep Papanicolaou smear with manual screening 31 U/L 15-37 [facility] Work Phone: Thin prep Papanicolaou smear with manual screening 6 5-15 [facility] Work Phone: Absolute lymphocyte counton 11-24-2021 Lymphocytes Auto (Unsp spec) [#/Vol] 1.01 10*3/uL 0.83-4.51 [facility] Work Phone: Basophil percentageon 2021 Basophil percentage 3.5 mg/dL 2.5-4.9 [facility] Work Phone: Basophils/100 WBC (Bld) 0.4 % 0-1 [facility] Work Phone: Bilirubin [Mass/Vol] 0.40 mg/dL 0.20-1.00 [facility] Work Phone: Comment on above: For patients on eltr ombopag therapy, use of [employer] [place] TBIL is not recommended. Chloride [Moles/Vol] 105 mmol/L 98-107 [facility] Work Phone: Eosinophils/100 WBC (Bld) 2.3 % 0-5 [facility] Work Phone: Glucose [Mass/Vol] 321 mg/dL 74-106 [facility] Work Phone: Comment on above: Glucose result great er than or equal to 200 mg/dLsuggests DIABETES MELLITUS per A.D.A. criteria. Neutrophils (Bld) [#/Vol] 3.8 10*3/uL 2.0-7.7 [facility] Work Phone: Neutrophils/100 WBC (Bld) 66.8 % 47-70 [facility] Work Phone: Potassium [Moles/Vol] 4.2 mmol/L 3.5-5.1 [facility] Work Phone: Protein [Mass/Vol] 6.6 g/dL 6.4-8.2 [facility] Work Phone: Sodium [Moles/Vol] 133 mmol/L 136-145 [facility] Work Phone: WBC (Bld) [#/Vol] 5.6 10*3/uL 4.4-11.0 [facility] Work Phone: Blood erythrocytes count (nu mber/volume)on 11-24-2021 RBC (Bld) [#/Vol] 3.91 10*6/uL 4.2-5.4 [facility] Work Phone: Blood hemoglobin measurement (mass/volume)on 11-24-2021 Hemoglobin (Bld) [Mass/Vol] 11.0 g/dL 12.0-15.0 [facility] Work Phone: Blood lymphocytes/100 leukoc yteson 11-24-2021 Lymphocytes/100 WBC (Bld) 17.9 % 19-41 [facility] Work Phone: Blood monocytes/100 leukocyt eson 11-24-2021 Monocytes/100 WBC (Bld) 12.1 % 0-10 [facility] Work Phone: Blood platelet mean volumeon 11-24-2021 Platelet mean volume (Bld) [Entitic vol] 11.4 fL 6.2-12.0 [facility] Work Phone: Determination of erythrocyte mean corpuscular volume (MCV)on 11-24-2021 MCV (RBC) [Entitic vol] 83.4 fL 81-99 [facility] Work Phone: Glucose Glucometer (BldC) [M ass/Vol]on 11-24-2021 Glucose [Mass/Vol] 307 mg/dL 74-106 [facility] Work Phone: Comment on above: MANAGEMENT OF PATIEN T CARE PER NURSING PROTOCOL Glucose [Mass/Vol] 339 mg/dL 74-106 [facility] Work Phone: Comment on above: MANAGEMENT OF PATIEN T CARE PER NURSING PROTOCOL Hematocrit Auto (Bld) [Volum e fraction]on 11-24-2021 Hematocrit (Bld) [Volume fraction] 32.6 % 37-47 [facility] Work Phone: Laboratory - Chemistry and C hemistry - challengeon 11-24-2021 ALP [Catalytic activity/Vol] 116 U/L 45-117 [facility] Work Phone: ALT [Catalytic activity/Vol] 33 U/L 13-56 [facility] Work Phone: CK [Catalytic activity/Vol] 500 U/L 26-192 [facility] Work Phone: CO2 [Moles/Vol] 22.0 mmol/L 21.0-32.0 [facility] Work Phone: Globulin (S) [Mass/Vol] 4.4 g/dL 2.2-4.2 [facility] Work Phone: Magnesium [Mass/Vol] 2.3 mg/dL 1.6-2.6 [facility] Work Phone: Urea nitrogen/Creatinine [Mass ratio] 24.3 mg/mg 10-20 [facility] Work Phone: Laboratory - Hematology and Cell countson 11-24-2021 Erythrocyte distribution width (RBC) [Entitic vol] 45.1 fL 35.1-43.9 [facility] Work Phone: Erythrocyte distribution width (RBC) [Ratio] 14.9 % 11.6-14.6 [facility] Work Phone: Immature granulocytes/100 WBC (Bld) 0.500 % 0.0-0.9 [facility] Work Phone: Comment on above: IG% - Immature Granu locytes (promyelocytes, myelocytes and metamyelocytes) > 1% indicates that a LEFT SHIFT is Present. MCH (RBC) [Entitic mass] 28.1 pg 27.0-32.0 [facility] Work Phone: Nucleated RBC/100 WBC (Bld) [Ratio] 0 % 0-5 [facility] Work Phone: MCHC Auto (RBC) [Mass/Vol]on 11-24-2021 MCHC (RBC) [Mass/Vol] 33.7 g/dL 32-36 [facility] Work Phone: No Panel Informationon 11-24 Estimated Creatinine Clearance Calc 51.54 ml/min [facility] Work Phone: Estimated GFR (MDRD) Amer 76 mL/min >60 [facility] Work Phone: Comment on above: GFR Calc Estimated GFR (MDRD) Non-Af Amer 62 mL/min >60 [facility] Work Phone: Comment on above: Non- GFR Calc Platelets bldon 11-24-2021 Platelets (Bld) [#/Vol] 107 10*3/uL 150-450 [facility] Work Phone: Serum or plasma albumin kim urement (mass/volume)on 11-24-2021 Albumin [Mass/Vol] 2.2 g/dL 3.2-5.0 [facility] Work Phone: Serum or plasma albumin/glob ulin mass ratioon 11-24-2021 Albumin/Globulin [Mass ratio] 0.5 {ratio} 0.9-2.4 [facility] Work Phone: Serum or plasma calcium kim urement (mass/volume)on 11-24-2021 Calcium [Mass/Vol] 8.5 mg/dL 8.5-10.1 [facility] Work Phone: Serum or plasma creatinine m easurement (mass/volume)on 11-24-2021 Creatinine [Mass/Vol] 0.94 mg/dL 0.55-1.02 [facility] Work Phone: Comment on above: The validity of the calculated GFR & GFRAA in patients over 70 years has not been determined. Clinical correlation is essential. Serum or plasma urea nitroge n measurement (mass/volume)on 11-24-2021 Urea nitrogen [Mass/Vol] 23 mg/dL 7-18 [facility] Work Phone: Thin prep Papanicolaou smear with manual screeningon 11-24-2021 Thin prep Papanicolaou smear with manual screening 49 U/L 15-37 [facility] Work Phone: Thin prep Papanicolaou smear with manual screening 6 5-15 [facility] Work Phone: Absolute lymphocyte counton 11-22-2021 Lymphocytes Auto (Unsp spec) [#/Vol] 0.27 10*3/uL 0.83-4.51 [facility] Work Phone: Basophil percentageon 2021 Lactate [Moles/Vol] 2.7 mmol/L 0.4-2.0 [facility] Work Phone: Comment on above: Critical Result(s) C alled at: 19:01:05 11/22/2021 by: Sintia Hernandez to Pamela Ely Results read back by same. Basophil percentage >100 SEEN /hpf 0-5 [facility] Work Phone: Lactate [Moles/Vol] 4.1 mmol/L 0.4-2.0 [facility] Work Phone: Comment on above: Critical Result(s) C alled at: 14:35:39 11/22/2021 by: Derik Florez. Milad Cordvoa RN (ER). Results read back by same. Basophils/100 WBC (Bld) 0.3 % 0-1 [facility] Work Phone: Bilirubin [Mass/Vol] 1.00 mg/dL 0.20-1.00 [facility] Work Phone: Comment on above: For patients on eltr ombopag therapy, use of Dimension [place] TBIL is not recommended. Chloride [Moles/Vol] 97 mmol/L 98-107 [facility] Work Phone: Eosinophils/100 WBC (Bld) 0.0 % 0-5 [facility] Work Phone: Glucose [Mass/Vol] 358 mg/dL 74-106 [facility] Work Phone: Comment on above: Glucose result great er than or equal to 200 mg/dLsuggests DIABETES MELLITUS per A.D.A. criteria. Neutrophils (Bld) [#/Vol] 2.6 10*3/uL 2.0-7.7 [facility] Work Phone: Neutrophils/100 WBC (Bld) 89.3 % 47-70 [facility] Work Phone: Potassium [Moles/Vol] 4.9 mmol/L 3.5-5.1 [facility] Work Phone: Comment on above: Moderate Hemolysis, Result may be falsely increased. Protein [Mass/Vol] 7.8 g/dL 6.4-8.2 [facility] Work Phone: Sodium [Moles/Vol] 130 mmol/L 136-145 [facility] Work Phone: WBC (Bld) [#/Vol] 2.9 10*3/uL 4.4-11.0 [facility] Work Phone: Bilirubin Test strip Ql (U)o n 11-22-2021 Bilirubin Ql (U) Negative Negative [facility] Work Phone: Blood erythrocytes count (nu mber/volume)on 11-22-2021 RBC (Bld) [#/Vol] 4.66 10*6/uL 4.2-5.4 [facility] Work Phone: Blood hemoglobin measurement (mass/volume)on 11-22-2021 Hemoglobin (Bld) [Mass/Vol] 12.9 g/dL 12.0-15.0 [facility] Work Phone: Blood lymphocytes/100 leukoc yteson 11-22-2021 Lymphocytes/100 WBC (Bld) 9.4 % 19-41 [facility] Work Phone: Blood manual differential co mment interpretation (narrative result)on 11-22-2021 Manual differential comment Neftali (Bld) [Interp] SCANNED [facility] Work Phone: Comment on above: FEW BANDS NOTED Blood monocytes/100 leukocyt eson 11-22-2021 Monocytes/100 WBC (Bld) 0.7 % 0-10 [facility] Work Phone: Blood platelet mean volumeon 11-22-2021 Platelet mean volume (Bld) [Entitic vol] 11.0 fL 6.2-12.0 [facility] Work Phone: Determination of erythrocyte mean corpuscular volume (MCV)on 11-22-2021 MCV (RBC) [Entitic vol] 83.7 fL 81-99 [facility] Work Phone: Hematocrit Auto (Bld) [Volum e fraction]on 11-22-2021 Hematocrit (Bld) [Volume fraction] 39.0 % 37-47 [facility] Work Phone: INR in Blood by Coagulation assayon 11-22-2021 INR Coag (Bld) [Relative time] 1.6 {INR} [facility] Work Phone: Ketones Test strip Ql (U)on 11-22-2021 Ketones Ql (U) 15 mg/dl Negative [facility] Work Phone: Laboratory - Chemistry and C hemistry - challengeon 11-22-2021 ALP [Catalytic activity/Vol] 170 U/L 45-117 [facility] Work Phone: ALT [Catalytic activity/Vol] 33 U/L 13-56 [facility] Work Phone: CO2 [Moles/Vol] 22.0 mmol/L 21.0-32.0 [facility] Work Phone: Globulin (S) [Mass/Vol] 5.0 g/dL 2.2-4.2 [facility] Work Phone: Urea nitrogen/Creatinine [Mass ratio] 19.1 mg/mg 10-20 [facility] Work Phone: Laboratory - Coagulationon 0 11-22-2021 aPTT Coag (Bld) [Time] 33.5 s 24.1-36.2 [facility] Work Phone: PT Coag (PPP) [Time] 18.6 s 11.7-14.9 [facility] Work Phone: Laboratory - Hematology and Cell countson 11-22-2021 Erythrocyte distribution width (RBC) [Entitic vol] 44.4 fL 35.1-43.9 [facility] Work Phone: Erythrocyte distribution width (RBC) [Ratio] 14.6 % 11.6-14.6 [facility] Work Phone: Immature granulocytes/100 WBC (Bld) 0.300 % 0.0-0.9 [facility] Work Phone: Comment on above: IG% - Immature Granu locytes (promyelocytes, myelocytes and metamyelocytes) > 1% indicates that a LEFT SHIFT is Present. MCH (RBC) [Entitic mass] 27.7 pg 27.0-32.0 [facility] Work Phone: Nucleated RBC/100 WBC (Bld) [Ratio] 0 % 0-5 [facility] Work Phone: Laboratory - Microbiology an d Antimicrobial susceptibilityon 11-22-2021 SARS-CoV-2 (COVID-19) RNA SALLY+probe Ql (Unsp spec) Not detected Not Detect [facility] Work Phone: Comment on above: [...] 11-22-2021 MCHC (RBC) [Mass/Vol] 33.1 g/dL 32-36 [facility] Work Phone: Mucus LM Ql (Urine sed)on Mucus Ql (Urine sed) 0 SEEN /hpf [facility] Work Phone: Nitrite Test strip Ql (U)on 11-22-2021 Nitrite Ql (U) Negative Negative [facility] Work Phone: No Panel Informationon 11-22 Troponin I High Sensitivity 217 pg/mL 3.0-54.0 [facility] Work Phone: Comment on above: Critical Result(s) C alled at: 20:27:57 11/22/2021 by: Sintia Hernandez to Anthony Butcher. Results read back by same. Please Note: New Test Units and Gender Specific Reference Ranges. For more information see Policy Stat Procedure [place] High Sensitivity Troponin (TNIH) and attachments. Troponin I High Sensitivity 274 pg/mL 3.0-54.0 [facility] Work Phone: Comment on above: Critical Result(s) C alled at: 17:12:08 11/22/2021 by: Sintia Hernandez by Lila Cordova. Results read back by same. Please Note: New Test Units and Gender Specific Reference Ranges. For more information see Policy Stat Procedure [place] High Sensitivity Troponin (TNIH) and attachments. Estimated Creatinine Clearance Calc 34.36 ml/min [facility] Work Phone: Estimated GFR (MDRD) Amer 48 mL/min >60 [facility] Work Phone: Comment on above: GFR Calc Estimated GFR (MDRD) Non-Af Amer 39 mL/min >60 [facility] Work Phone: Comment on above: Non- GFR Calc Platelets bldon 11-22-2021 Platelets (Bld) [#/Vol] 121 10*3/uL 150-450 [facility] Work Phone: Protein Test strip Ql (U)on 11-22-2021 Protein Ql (U) 100 mg/dl Negative [facility] Work Phone: Review by pathologiston 11-04 Pathologist review Neftali (Unsp spec) [Interp] May foll [facility] Work Phone: Pathologist review Neftali (Unsp spec) [Interp] Reviewed [facility] Work Phone: Comment on above: Previous reported re sult: Analisa jacobson Edited by: RGORUBENS on 11/23/21:8754LeukopeniaMild Thrombocytopenia.Clinical correlation necessary.Cedric Cardoza M.D. 11/23/21 AMENDED REPORT 11/23/21 1334 PATH REV previously reported as: Analisa jacobson Serum or plasma albumin kim urement (mass/volume)on 11-22-2021 Albumin [Mass/Vol] 2.8 g/dL 3.2-5.0 [facility] Work Phone: Serum or plasma albumin/glob ulin mass ratioon 11-22-2021 Albumin/Globulin [Mass ratio] 0.6 {ratio} 0.9-2.4 [facility] Work Phone: Serum or plasma calcium kim urement (mass/volume)on 11-22-2021 Calcium [Mass/Vol] 8.9 mg/dL 8.5-10.1 [facility] Work Phone: Serum or plasma creatinine m easurement (mass/volume)on 11-22-2021 Creatinine [Mass/Vol] 1.41 mg/dL 0.55-1.02 [facility] Work Phone: Comment on above: The validity of the calculated GFR & GFRAA in patients over 70 years has not been determined. Clinical correlation is essential. Serum or plasma urea nitroge n measurement (mass/volume)on 11-22-2021 Urea nitrogen [Mass/Vol] 27 mg/dL 7-18 [facility] Work Phone: Squamous epithelial cells de tection in urine sediment by light microscopyon 11-22-2021 Epithelial cells.squamous LM Ql (Urine sed) 0 SEEN /hpf 5-10 [facility] Work Phone: Thin prep Papanicolaou smear with manual screeningon 11-22-2021 Thin prep Papanicolaou smear with manual screening 65 U/L 15-37 [facility] Work Phone: Comment on above: Moderate Hemolysis, Result may be falsely increased. Thin prep Papanicolaou smear with manual screening 11 5-15 [facility] Work Phone: Urine blood detectionon 11-04 RBC Ql (U) 250 /ul Negative [facility] Work Phone: RBC Ql (U) 0 SEEN /hpf 0-5 [facility] Work Phone: Urine clarityon 11-22-2021 Clarity (U) Cloudy Clear [facility] Work Phone: Urine color determinationon 11-22-2021 Color (U) Yellow Yellow [facility] Work Phone: Urine glucose detectionon Glucose Ql (U) 250 mg/dl Normal [facility] Work Phone: Urine leukocyte esterase det ection by dipstickon 11-22-2021 Leukocyte esterase Test strip Ql (U) 500 /ul Negative [facility] Work Phone: Urine pHon 11-22-2021 pH (U) 6.0 [pH] 5.0 - 8.0 [facility] Work Phone: Urine sediment bacteria coun t by microscopy (number/high power field)on 11-22-2021 Bacteria LM.HPF (Urine sed) [#/Area] 3 /[HPF] None Seen [facility] Work Phone: Urine specific gravity measu rementon 11-22-2021 Specific gravity (U) [Rel density] 1.020 1.002-1.03 0 [facility] Work Phone: Urobilinogen Auto test strip Ql (U)on 11-22-2021 Urobilinogen Ql (U) Normal mg/dl Normal [facility] Work Phone: Whole blood hemoglobin A1c/t otal hemoglobin ratio (mass fraction)on 11-22-2021 HbA1c (Bld) [Mass fraction] 10.2 % 3.8-5.6 [facility] Work Phone: Comment on above: Normal < 5.7 % Predi abetic 5.7 - 6.4 % Diabetic >or= 6.5 % Please note range changes. Whole blood hemoglobin A1c/t otal hemoglobin ratio (mass fraction)on 10-27-2021 HbA1c (Bld) [Mass fraction] 8.3 % 3.8-5.6 [facility] Work Phone: Comment on above: Normal < 5.7 % Predi abetic 5.7 - 6.4 % Diabetic >or= 6.5 % Please note range changes. Absolute lymphocyte counton 10-13-2021 Lymphocytes Auto (Unsp spec) [#/Vol] 1.22 10*3/uL 0.83-4.51 [facility] Work Phone: Basophil percentageon 2021 Basophils/100 WBC (Bld) 0.3 % 0-1 [facility] Work Phone: Bilirubin [Mass/Vol] 0.50 mg/dL 0.20-1.00 [facility] Work Phone: Comment on above: For patients on eltr ombopag therapy, use of Dimension [place] TBIL is not recommended. Chloride [Moles/Vol] 102 mmol/L 98-107 [facility] Work Phone: Eosinophils/100 WBC (Bld) 1.7 % 0-5 [facility] Work Phone: Glucose [Mass/Vol] 259 mg/dL 74-106 [facility] Work Phone: Comment on above: Glucose result great er than or equal to 200 mg/dLsuggests DIABETES MELLITUS per A.D.A. criteria. Neutrophils (Bld) [#/Vol] 5.1 10*3/uL 2.0-7.7 [facility] Work Phone: Neutrophils/100 WBC (Bld) 70.8 % 47-70 [facility] Work Phone: Potassium [Moles/Vol] 4.4 mmol/L 3.5-5.1 [facility] Work Phone: Protein [Mass/Vol] 7.4 g/dL 6.4-8.2 [facility] Work Phone: Sodium [Moles/Vol] 134 mmol/L 136-145 [facility] Work Phone: WBC (Bld) [#/Vol] 7.1 10*3/uL 4.4-11.0 [facility] Work Phone: Blood erythrocytes count (nu mber/volume)on 10-13-2021 RBC (Bld) [#/Vol] 4.21 10*6/uL 4.2-5.4 [facility] Work Phone: Blood hemoglobin measurement (mass/volume)on 10-13-2021 Hemoglobin (Bld) [Mass/Vol] 12.1 g/dL 12.0-15.0 [facility] Work Phone: Blood lymphocytes/100 leukoc yteson 10-13-2021 Lymphocytes/100 WBC (Bld) 17.1 % 19-41 [facility] Work Phone: Blood monocytes/100 leukocyt eson 10-13-2021 Monocytes/100 WBC (Bld) 9.8 % 0-10 [facility] Work Phone: Blood platelet mean volumeon 10-13-2021 Platelet mean volume (Bld) [Entitic vol] 10.7 fL 6.2-12.0 [facility] Work Phone: Determination of erythrocyte mean corpuscular volume (MCV)on 10-13-2021 MCV (RBC) [Entitic vol] 86.2 fL 81-99 [facility] Work Phone: Hematocrit Auto (Bld) [Volum e fraction]on 10-13-2021 Hematocrit (Bld) [Volume fraction] 36.3 % 37-47 [facility] Work Phone: Laboratory - Chemistry and C hemistry - challengeon 10-13-2021 ALP [Catalytic activity/Vol] 169 U/L 45-117 [facility] Work Phone: ALT [Catalytic activity/Vol] 31 U/L 13-56 [facility] Work Phone: CO2 [Moles/Vol] 25.0 mmol/L 21.0-32.0 [facility] Work Phone: Globulin (S) [Mass/Vol] 4.5 g/dL 2.2-4.2 [facility] Work Phone: Urea nitrogen/Creatinine [Mass ratio] 14.3 mg/mg 10-20 [facility] Work Phone: Laboratory - Hematology and Cell countson 10-13-2021 Erythrocyte distribution width (RBC) [Entitic vol] 45.6 fL 35.1-43.9 [facility] Work Phone: Erythrocyte distribution width (RBC) [Ratio] 14.4 % 11.6-14.6 [facility] Work Phone: Immature granulocytes/100 WBC (Bld) 0.300 % 0.0-0.9 [facility] Work Phone: Comment on above: IG% - Immature Granu locytes (promyelocytes, myelocytes and metamyelocytes) > 1% indicates that a LEFT SHIFT is Present. MCH (RBC) [Entitic mass] 28.7 pg 27.0-32.0 [facility] Work Phone: Nucleated RBC/100 WBC (Bld) [Ratio] 0 % 0-5 [facility] Work Phone: MCHC Auto (RBC) [Mass/Vol]on 10-13-2021 MCHC (RBC) [Mass/Vol] 33.3 g/dL 32-36 [facility] Work Phone: No Panel Informationon 10-13 Estimated GFR (MDRD) Amer 79 mL/min >60 [facility] Work Phone: Comment on above: GFR Calc Estimated GFR (MDRD) Non-Af Amer 66 mL/min >60 [facility] Work Phone: Comment on above: Non- GFR Calc Vitamin D 25-Hydroxy 67.4 ng/mL [facility] Work Phone: Comment on above: Vitamin D 25(OH) Sta tus Range Deficiency <20 ng/mL (50nmol/L) Insufficiency 20 - 30 ng/mL (50 - 75 nmol/L) Sufficiency 30 - 100 ng/mL (75 - 250 nmol/L) Toxicity >100 ng/mL (>250 nmol/L) Platelets bldon 10-13-2021 Platelets (Bld) [#/Vol] 158 10*3/uL 150-450 [facility] Work Phone: Serum or plasma albumin kim urement (mass/volume)on 10-13-2021 Albumin [Mass/Vol] 2.9 g/dL 3.2-5.0 [facility] Work Phone: Serum or plasma albumin/glob ulin mass ratioon 10-13-2021 Albumin/Globulin [Mass ratio] 0.6 {ratio} 0.9-2.4 [facility] Work Phone: Serum or plasma calcium kim urement (mass/volume)on 10-13-2021 Calcium [Mass/Vol] 8.8 mg/dL 8.5-10.1 [facility] Work Phone: Serum or plasma creatinine m easurement (mass/volume)on 10-13-2021 Creatinine [Mass/Vol] 0.91 mg/dL 0.55-1.02 [facility] Work Phone: Comment on above: The validity of the calculated GFR & GFRAA in patients over 70 years has not been determined. Clinical correlation is essential. Serum or plasma urea nitroge n measurement (mass/volume)on 10-13-2021 Urea nitrogen [Mass/Vol] 13 mg/dL 7-18 [facility] Work Phone: Thin prep Papanicolaou smear with manual screeningon 10-13-2021 Thin prep Papanicolaou smear with manual screening 28 U/L 15-37 [facility] Work Phone: Thin prep Papanicolaou smear with manual screening 7 5-15 [facility] Work Phone: CNOVSPon 10-02-2021 CNOVSP Visit (SP) Office (ROGELIO) ----- VIDA NINA ([id number]) 1950 F Date Time Provider Department 10/02/21 1:00 PM JENNIFER CUEVAS During your visit today, we recorded the following information about you: Temperature Pulse Respiration Blood pressure 97.4 degrees 103/minute 20/minute 152/85 Weight Height 136.5 kg 1.651 m Moriah Aldridge RN 10/02/2021 12:52 PM Signed Patient arrived [place] [id number] in [facility] for post op visit. Patient admits to pain in abd and lower back resolved since surgery. Pt denies any new concerns, today. Pt here with Marguerite, sepideh. Enc and support provided. JESUS Lynch MD 12/01/2021 8:04 AM Signed Gynecologic Oncology [facility] Follow up visit Date of service: 10/02/2021 PROBLEM/CC: Vida Nina presents for a post-op visit. SURGICAL PATHOLOGY [[id number]] Collected: 09/07/21 1104 Order Status: Completed Specimen: Tissue from UTERUS, CERVIX, BILATERAL FALLOPIAN TUBES AND BILATERAL OVARIES Updated: 09/11/21 1319 Case Report -- Surgical Pathology Report ? Case: [id number] ? Authorizing Provider: ?Jennifer Cuevas MD ? [...] A11 and A16 were reviewed at the [facility] gynecologic pathology consensus conference via telepathology on 09/09/[address] Lupe Younger and Andra Franco agree with the diagnosis of acute salpingitis. ? Laboratory Developed Test (LDT) Disclaimer: Performance characteristics of immunohistochemical, immunofluorescent and chromogenic in-situ hybridization tests have been determined by the performing laboratory within [facility]?reji Mercedes Pathology and Laboratory Medicine [place] ([facility], [facility], [facility] or [facility]) in a manner consistent with CLIA requirements. [...] (more content not included)... Normal [facility] Glucose Glucometer (BldC) [M ass/Vol]on 09-22-2021 Glucose [Mass/Vol] 145 mg/dL 74-106 [facility] Work Phone: Comment on above: MANAGEMENT OF PATIEN T CARE PER NURSING PROTOCOL Darren 09-21-2021 CNPN Telephone (ÁNGEL Sprague) ----- VIDA NINA ([id number]) 1950 F Date Time Provider Department 09/21/21 JENNIFER CUEVAS During your visit today, we recorded the following information about you: Jeffrey Ferris 09/21/2021 12:15 PM Signed Spoke to Nurse Bernadine from [facility] stated that the patient is in the [...] ERYTHEMATOSUS [M32.9] 07/15/2005 MYALGIA AND MYOSITIS NOS [[id number]] 07/15/2005 Elevated transaminase level [R74.01] 09/04/2014 Elevated blood sugar [R73.9] 09/04/2014 Mood disorder (HCC) [F39] 09/04/2014 Hard to intubate [T88.4XXA] 09/07/2021 Encounter for postoperative care [Z48.89] 09/07/2021 Endometrial cancer (HCC) [C54.1] 09/08/2021 Encounter Status:Closed by JEFFREY FERRIS on 09/21/21 Normal [facility] Absolute lymphocyte counton 09-20-2021 Lymphocytes Auto (Unsp spec) [#/Vol] 0.99 10*3/uL 0.83-4.51 [facility] Work Phone: Basophil percentageon 2021 Basophils/100 WBC (Bld) 0.6 % 0-1 [facility] Work Phone: Chloride [Moles/Vol] 109 mmol/L 98-107 [facility] Work Phone: Eosinophils/100 WBC (Bld) 2.6 % 0-5 [facility] Work Phone: Glucose [Mass/Vol] 211 mg/dL 74-106 [facility] Work Phone: Comment on above: Glucose result great er than or equal to 200 mg/dLsuggests DIABETES MELLITUS per A.D.A. criteria. Neutrophils (Bld) [#/Vol] 3.4 10*3/uL 2.0-7.7 [facility] Work Phone: Neutrophils/100 WBC (Bld) 67.6 % 47-70 [facility] Work Phone: Potassium [Moles/Vol] 4.4 mmol/L 3.5-5.1 [facility] Work Phone: Sodium [Moles/Vol] 138 mmol/L 136-145 [facility] Work Phone: WBC (Bld) [#/Vol] 5.0 10*3/uL 4.4-11.0 [facility] Work Phone: Blood erythrocytes count (nu mber/volume)on 09-20-2021 RBC (Bld) [#/Vol] 4.50 10*6/uL 4.2-5.4 [facility] Work Phone: Blood hemoglobin measurement (mass/volume)on 09-20-2021 Hemoglobin (Bld) [Mass/Vol] 12.8 g/dL 12.0-15.0 [facility] Work Phone: Blood lymphocytes/100 leukoc yteson 09-20-2021 Lymphocytes/100 WBC (Bld) 19.7 % 19-41 [facility] Work Phone: Blood monocytes/100 leukocyt eson 09-20-2021 Monocytes/100 WBC (Bld) 9.1 % 0-10 [facility] Work Phone: Blood platelet mean volumeon 09-20-2021 Platelet mean volume (Bld) [Entitic vol] 9.8 fL 6.2-12.0 [facility] Work Phone: Determination of erythrocyte mean corpuscular volume (MCV)on 09-20-2021 MCV (RBC) [Entitic vol] 87.6 fL 81-99 [facility] Work Phone: Hematocrit Auto (Bld) [Volum e fraction]on 09-20-2021 Hematocrit (Bld) [Volume fraction] 39.4 % 37-47 [facility] Work Phone: Laboratory - Chemistry and C hemistry - challengeon 09-20-2021 CO2 [Moles/Vol] 24.0 mmol/L 21.0-32.0 [facility] Work Phone: Natriuretic peptide B (Bld) [Mass/Vol] 43.0 pg/mL 0-100 [facility] Work Phone: Urea nitrogen/Creatinine [Mass ratio] 14.0 mg/mg 10-20 [facility] Work Phone: Laboratory - Hematology and Cell countson 09-20-2021 Erythrocyte distribution width (RBC) [Entitic vol] 47.4 fL 35.1-43.9 [facility] Work Phone: Erythrocyte distribution width (RBC) [Ratio] 14.7 % 11.6-14.6 [facility] Work Phone: Immature granulocytes/100 WBC (Bld) 0.400 % 0.0-0.9 [facility] Work Phone: Comment on above: IG% - Immature Granu locytes (promyelocytes, myelocytes and metamyelocytes) > 1% indicates that a LEFT SHIFT is Present. MCH (RBC) [Entitic mass] 28.4 pg 27.0-32.0 [facility] Work Phone: Nucleated RBC/100 WBC (Bld) [Ratio] 0 % 0-5 [facility] Work Phone: MCHC Auto (RBC) [Mass/Vol]on 09-20-2021 MCHC (RBC) [Mass/Vol] 32.5 g/dL 32-36 [facility] Work [facility]: No Panel Informationon 09-20 Troponin I High Sensitivity < 3 pg/mL 3.0-54.0 [facility] Work Phone: Comment on above: Please Note: New Emma t Units and Gender Specific Reference Ranges. For more information see Policy Stat Procedure [place] High Sensitivity Troponin (TNIH) and attachments. D-Dimer Quantitative (PE/DVT) 2.47 FEU/ug/m 0.27-0.49 [facility] Work Phone: Comment on above: D-Dimer ELEVATED (>0 .49): Additional studies and clinicalassessments are indicated to conclude diagnosis of:Deep Vein Thrombosis (DVT) or Pulmonary Embolism (PE)CRITICAL VALUE VERIFIED. CALLED TO [id number]/17/22 [id number] Taniya Burden.RESULTS READ BACK BY SAME . Estimated Creatinine Clearance Calc 56.34 ml/min [facility] Work Phone: Estimated GFR (MDRD) Amer 85 mL/min >60 [facility] Work Phone: Comment on above: GFR Calc Estimated GFR (MDRD) Non-Af Amer 70 mL/min >60 [facility] Work Phone: Comment on above: Non- GFR Calc Platelets bldon 09-20-2021 Platelets (Bld) [#/Vol] 161 10*3/uL 150-450 [facility] Work Phone: Serum or plasma calcium kim urement (mass/volume)on 09-20-2021 Calcium [Mass/Vol] 9.4 mg/dL 8.5-10.1 oste r [facility] Work Phone: Serum or plasma creatinine m easurement (mass/volume)on 09-20-2021 Creatinine [Mass/Vol] 0.86 mg/dL 0.55-1.02 [facility] Work Phone: Comment on above: The validity of the calculated GFR & GFRAA in patients over 70 years has not been determined. Clinical correlation is essential. Serum or plasma urea nitroge n measurement (mass/volume)on 09-20-2021 Urea nitrogen [Mass/Vol] 12 mg/dL 7-18 [facility] Work Phone: Thin prep Papanicolaou smear with manual screeningon 09-20-2021 Thin prep Papanicolaou smear with manual screening 5-15 [facility] Work Phone: OPERATIVE NOon 09-17-2021 OPERATIVE NO HNO ID: [id number] Author: Jennifer Cuevas MD Service: Gynecology Oncology Author Type: Physician Type: Operative Report Filed: 09/23/2021 10:50 AM Note Text: [facility] - Operative Report VIDA NINA : 1950 AGE: 70. SEX: F PATIENT TYPE: [place] [facility] [place] [facility] ATTENDING PHYSICIAN: Jennifer Cuevas M.D. CSN NUMBER: [id number] DATE OF SURGERY/PROCEDURE: 09/07/2021 INCISION/PROCEDURE START TIME: 09:14 a.m. INCISION CLOSE/PROCEDURE END TIME: 12:36 p.m. 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 SURGEON: Jennifer Cuevas M.D. PHYSICAL THERAPY AIDES TEACHER: promotions assistant, Dr. Donal Naidu and Dr. Shanon [...] (more content not included)... Normal [facility] Bilirubin Test strip Ql (U)o n 09-10-2021 Bilirubin Ql (U) Negative Negative [facility] Work Phone: Darren 09-10-2021 SHORTY Telephone (JOSE MANUELYNONPO B) ----- VIDA NINA ([id number]) 1950 F Date Time Provider Department 09/10/21 TANIYA BALDERAS During your visit today, we recorded the following information about you: Taniya Balderas APRN.MICHELLE 09/10/2021 8:32 AM Signed Called [facility] left message on nurse line to [...] involved verbal instructions per Dr julieth Balderas APRN.[facility] Allergies As of Date: 09/10/2021 Noted [...] ERYTHEMATOSUS [M32.9] 07/15/2005 MYALGIA AND MYOSITIS NOS [[id number]] 07/15/2005 Elevated transaminase level [R74.01] 09/04/2014 Elevated blood sugar [R73.9] 09/04/2014 Mood disorder (HCC) [F39] 09/04/2014 Hard to intubate [T88.4XXA] 09/07/2021 Encounter for postoperative care [Z48.89] 09/07/2021 Endometrial cancer (HCC) [C54.1] 09/08/2021 Encounter Status:Closed by TANIYA BALDERAS on 09/10/21 Normal [facility] Culture, urineon 09-10-2021 Bacteria identified Cx Nom (U) Negative [facility] Work Phone: Ketones Test strip Ql (U)on 09-10-2021 Ketones Ql (U) Negative Negative [facility] Work Phone: Nitrite Test strip Ql (U)on 09-10-2021 Nitrite Ql (U) Negative Negative [facility] Work Phone: Protein Test strip Ql (U)on 09-10-2021 Protein Ql (U) Negative Negative [facility] Work Phone: Urine blood detectionon 04-0 RBC Ql (U) 25 /ul Negative [facility] Work Phone: Urine clarityon 09-10-2021 Clarity (U) Clear Clear [facility] Work Phone: Urine color determinationon 09-10-2021 Color (U) Yellow Yellow [facility] Work Phone: Urine glucose detectionon Glucose Ql (U) Normal mg/dl Normal [facility] Work Phone: Urine leukocyte esterase det ection by dipstickon 09-10-2021 Leukocyte esterase Test strip Ql (U) 25 /ul Negative [facility] Work Phone: Urine pHon 09-10-2021 pH (U) 7.0 [pH] 5.0 - 8.0 [facility] Work Phone: Urine specific gravity measu rementon 09-10-2021 Specific gravity (U) [Rel density] 1.005 1.002-1.03 0 [facility] Work Phone: Urobilinogen Auto test strip Ql (U)on 09-10-2021 Urobilinogen Ql (U) Normal mg/dl Normal [facility] Work Phone: ANES POSTPROC EVALon 022 ANES POSTPROC EVAL HNO ID: [id number] Author: Darrion Payne MD Service: Anesthesiology Author Type: Physician Type: Anesthesia Postprocedure Evaluation Filed: 09/09/2021 12:30 PM Note Text: POST ANESTHESIA EVALUATION NOTE : 1950 Procedure Summary Date: 09/07/21 Room / Location: NE OR [address] [place] [address] OR Anesthesia Start: 812 Anesthesia Stop: 1242 [...] September 09, 2021 TIME: 12:30 PM CSN: [id number] [facility] CNPElva 09-09-2021 MICHELLEN Telephone (ÁNGEL Sprague) ----- VIDA NINA ([id number]) 1950 F Date Time Provider Department 09/09/21 JENNIFER CUEVAS During your visit today, we recorded the following information about you: Summer Turcios RN 09/09/2021 2:15 PM Signed Franklin, instructor of nursing at [facility] called stated, one of patient's lap sites [...] confidential e-mail) Attempted to call Franklin at [facility] to review above message, no answer. Left message on voicemail to return call. JESUS Shah RN 09/09/2021 2:53 PM Signed Franklin from [facility] returned call to this RN. Reviewed message [...] ERYTHEMATOSUS [M32.9] 07/15/2005 MYALGIA AND MYOSITIS NOS [OXY0922] 07/15/2005 Elevated transaminase level [R74.01] 09/04/2014 Elevated blood sugar [R73.9] 09/04/2014 Mood disorder (HCC) [F39] 09/04/2014 Hard to intubate [T88.4XXA] 09/07/2021 Encounter for postoperative care [Z48.89] 09/07/2021 Endometrial cancer (HCC) [C54.1] 09/08/2021 Encounter Status:Closed by SUMMER TURCIOS on 09/09/21 [facility] CASE MANAGEMon 09-08-2021 CASE MANAGEM HNO ID: [id number] Author: Rosmery Mclaughlin RN Service: ? Author [...] to call report. TRANSPORTATION ARRANGEMENTS: Transportation Arrangements: ([facility]) ADDITIONAL CONTACT RESOURCES: n/a DC orders completed. Patient is discharging back to [facility]. The facility has arranged for [facility] transport to pick her up at 1pm. RN is aware. Met with patient at bedside to notify of DC and transport time. SIGNATURE: Rosmery Mclaughlin RN PATIENT NAME: Vida Nina DATE: September 08, 2021 TIME: 12:28 PM PAGER/CONTACT #: [phone] Normal [facility] HNO ID: [id number] Author: Rosmery Mclaughlin RN Service: ? Author Type: Registered Nurse Type: Care Mgt Initial Assessment Filed: 09/08/2021 10:24 AM Note Text: CARE MANAGEMENT: ASSESSMENT AND DISCHARGE PLAN SERVICE DATE: September 08, 2021 SERVICE TIME: 10:22 AM PRIMARY CARE PHYSICIAN: No primary care provider on file. Phone: None ADMISSION STATUS: Inpatient Needs Prior to Discharge: Discharge Transportation MEDICAL: [facility] MEDICARE Patient/Nursery Technician Stated Goals: To return home to life as it was;To have reduction in pain Health Insurance: [facility];Medicare;Medicaid Health Issues Impacting Discharge Plan: Newly [...] Psychosocial Needs: None FREEDOM OF CHOICE EXPLAINED: [place] of Choice Given: No Reason Not Given: Patient refused (patient prefers to return to [facility]) POTENTIAL TRANSITION PLANS Home Chart reviewed and met with patient. She is from [facility]. 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 Plan is to return to [place]. Spoke with Zari at [facility]. 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 Will updated patient and RN. SIGNATURE: Rosmery Mclaughlin RN PATIENT NAME: Vida Nina DATE: September 08, 2021 TIME: 10:22 AM PAGER/CONTACT #: [phone] [facility] 09-08-2021 [facility] HNO ID: [id number] Author: Sam Naidu DO Service: Gynecology Oncology [...] Time Provider Department Center 09/22/2021 2:30 PM [id number] CUEVAS PO DISCHARGE MEDICATIONS Current Discharge Medication [...] September 08, 2021 TIME: 7:27 AM PAGER: [phone] Normal [facility] ANES PRE-OPon 09-07-2021 ANES PRE-OP HNO ID: [id number] Author: Darrion Payne MD Service: Anesthesiology Author [...] September 07, 2021 TIME: 8:57 AM CSN: [id number] [facility] BRIEF OP NOTon 09-07-2021 BRIEF OP NOT HNO ID: [id number] Author: Sam Naidu DO Service: Gynecology Oncology Author Type: Resident Type: Brief Op Note Filed: 09/07/2021 1:06 PM Note Text: BRIEF OPERATIVE / PROCEDURE NOTE LOG ID: [id number] SURGERY/PROCEDURE DATE: 09/07/2021 INCISION/PROCEDURE START TIME: 9:14 AM INCISION CLOSE/PROCEDURE END TIME: 12:36 PM SURGEON(S)/PROCEDURALIST( S) AND PHYSICAL THERAPY AIDES TEACHER(S): Surgeon(s) and Role: * Jennifer Cuevas MD [...] 2021 TIME: 1:01 PM Normal [facility] Bacteria Ur Culton 2 Bacteria identified [...] sulfameth R >2 F Abnormal [facility] Comment on above: Performed By: #### 6 30-4 ####[facility] [id number] [place] [address] [place] Basic metabolic 2000 panelon 09-07-2021 Anion gap [Moles/Vol] 13 mmol/L Normal 9-18 [facility] Comment on above: Order Comment: Bobbi alford Type: BLOOD SPECIMEN Ordering Facility: [facility] Address: [address] [address] Performed By: #### 2 4321-2 #### [facility] CLIA [id number] [address] STATES OF [facility] Calcium [Mass/Vol] 9.2 mg/dL Normal 8.5-10.2 [facility] Comment on above: Order Comment: Bobbi alford Type: BLOOD SPECIMEN Ordering Facility: [facility] Address: [address] [address] Performed By: #### 2 4321-2 #### [facility] CLIA [id number] [address] STATES [place] Chloride [Moles/Vol] 97 mmol/L Normal 97-105 [facility] Comment on above: Order Comment: Speci men Type: BLOOD SPECIMEN Ordering Facility: [facility] Address: [address] [place] [address] Performed By: #### 2 4321-2 #### [facility] CLIA [id number] [address] OF [place] CO2 [Moles/Vol] 22 mmol/L Normal 22-30 [facility] Comment on above: Order Comment: Speci men Type: BLOOD SPECIMEN Ordering Facility: [facility] Address: [address] [place] [address] Performed By: #### 2 4321-2 #### [facility] CLIA [id number] [address] Creatinine [Mass/Vol] 0.70 mg/dL Normal 0.58-0.96 [facility] Comment on above: Order Comment: Speci men Type: BLOOD SPECIMEN Ordering Facility: [facility] Address: [address] [place] [address] Performed By: #### 2 4321-2 #### [facility] CLIA [id number] [address] ESTIMATED GLOMERULAR FILTRATION RATE 94 mL/min/1.73m??? Normal >=60 [facility] Comment on above: Order Comment: Speci men Type: BLOOD SPECIMEN Ordering Facility: [facility] Address: [address] [place] [address] Result Comment: Laura mated Glomerular Filtration Rate [...] GFR. Performed By: #### 2 4321-2 #### [facility] CLIA [id number] 1 [place] [address] [place] Glucose [Mass/Vol] 303 mg/dL High 74-99 [facility] Comment on above: Order Comment: Bobbi alford Type: BLOOD SPECIMEN Ordering Facility: [facility] Address: [address] [place] [address] Result Comment: The [place] Diabetes Association (ADA) provides guidance for cutoff [...] Standards of Medical Care in Diabetes 2016, [place] [employer]. Diabetes Care. 2016.39(Suppl 1). Performed By: #### 2 4321-2 #### [facility] CLIA [id number] 1 [place] [address] [place] Potassium [Moles/Vol] 4.9 mmol/L Normal 3.7-5.1 [facility] Comment on above: Order Comment: Bobbi alford Type: BLOOD SPECIMEN Ordering Facility: [facility] Address: [address] [place] [address] Performed By: #### 2 4321-2 #### [facility] CLIA [id number] 1 [place] [address] [place] Sodium [Moles/Vol] 132 mmol/L Low 136-144 [facility] Comment on above: Order Comment: Bobbi alford Type: BLOOD SPECIMEN Ordering Facility: [facility] Address: [address] [place] [address] Performed By: #### 2 4321-2 #### [facility] CLIA [id number] [address] STATES OF [facility] Urea nitrogen [Mass/Vol] 13 mg/dL Normal 7-21 [facility] Comment on above: Order Comment: Speci men Type: BLOOD SPECIMEN Ordering Facility: [facility] Address: [address] [place] [address] Performed By: #### 2 4321-2 #### [facility] CLIA [id number] [address] OF [facility] CBC panel Auto (Bld)on 09-07 Erythrocyte distribution width (RBC) [Ratio] 14.2 % Normal 11.5-15.0 [facility] Comment on above: Order Comment: Speci men Type: BLOOD SPECIMEN Ordering Facility: [facility] Address: [address] [place] [address] Performed By: #### 5 8410-2 #### [facility] CLIA [id number] [address] [place] [address] Hematocrit (Bld) [Volume fraction] 44.0 % Normal 36.0-46.0 [facility] Comment on above: Order Comment: Speci men Type: BLOOD SPECIMEN Ordering Facility: [facility] Address: [address] [place] [address] Performed By: #### 5 8410-2 #### [facility] CLIA [id number] [address] STATES OF [facility] Hemoglobin (Bld) [Mass/Vol] 14.2 g/dL Normal 11.5-15.5 [facility] Comment on above: Order Comment: Speci men Type: BLOOD SPECIMEN Ordering Facility: [facility] Address: [address] [place] [address] Performed By: #### 5 8410-2 #### [facility] CLIA [id number] [address] MCH (RBC) [Entitic mass] 28.9 pg Normal 26.0-34.0 [facility] Comment on above: Order Comment: Speci men Type: BLOOD SPECIMEN Ordering Facility: [facility] Address: [address] [address] Performed By: #### 5 8410-2 #### [facility] CLIA [id number] [address] MCHC (RBC) [Mass/Vol] 32.3 g/dL Normal 30.5-36.0 [facility] Comment on above: Order Comment: Speci men Type: BLOOD SPECIMEN Ordering Facility: [facility] Address: [address] [place] [address] Performed By: #### 5 8410-2 #### [facility] CLIA [id number] [address] MCV (RBC) [Entitic vol] 89.6 fL Normal 80.0-100.0 [facility] Comment on above: Order Comment: Speci men Type: BLOOD SPECIMEN Ordering Facility: [facility] Address: [address] [place] [address] Performed By: #### 5 8410-2 #### [facility] CLIA [id number] [address] Nucleated RBC (Bld) [#/Vol] 10*3/uL Normal <0.01 [facility] Comment on above: Order Comment: Speci men Type: BLOOD SPECIMEN Ordering Facility: [facility] Address: [address] [place] [address] Performed By: #### 5 8410-2 #### [facility] CLIA [id number] [address] Platelet mean volume (Bld) [Entitic vol] 10.8 fL Normal 9.0-12.7 [facility] Comment on above: Order Comment: Speci men Type: BLOOD SPECIMEN Ordering Facility: [facility] Address: [address] [place] [address] Performed By: #### 5 8410-2 #### [facility] CLIA [id number] [address] [place] Platelets (Bld) [#/Vol] 153 10*3/uL Normal 150-400 [facility] Comment on above: Order Comment: Speci men Type: BLOOD SPECIMEN Ordering Facility: [facility] Address: [address] [place] [address] Performed By: #### 5 8410-2 #### [facility] CLIA [id number] [address] RBC (Bld) [#/Vol] 4.91 10*6/uL Normal 3.90-5.20 [facility] Comment on above: Order Comment: Speci men Type: BLOOD SPECIMEN Ordering Facility: [facility] Address: [address] [place] [address] Performed By: #### 5 8410-2 #### [facility] CLIA [id number] [address] WBC (Bld) [#/Vol] 8.23 10*3/uL Normal 3.70-11.00 [facility] Comment on above: Order Comment: Speci men Type: BLOOD SPECIMEN Ordering Facility: [facility] Address: [address] [place] [address] Performed By: #### 5 8410-2 #### [facility] CLIA [id number] [address] CONSULT PROGon 09-07-2021 CONSULT PROG HNO ID: [id number] Author: Niki Crabtree RPh Service: Pharmacy Author [...] Niki Crabtree RPh DATE/TIME: 09/07/2021 4:32 PM [facility] NURSING PROGon 09-07-2021 NURSING PROG HNO ID: [id number] Author: Lydia Oliver RN Service: Nursing Author Type: Registered Nurse Type: Nursing Progress Note Filed: 09/07/2021 3:19 PM Note Text: Spoke with Bernadine at [facility] to let her know patient was spending the night, as she said there is no nursing staff after 2300 Normal [facility] NURSING PROG HNO ID: [id number] Author: Lydia Oliver RN Service: Nursing Author [...] will continue home meds on the floor. [facility] SARS-CoV-2 RNA Resp Ql SALLY+p robeon 09-07-2021 SARS-CoV-2 (COVID-19) RNA SALLY+probe Ql (Resp) COVID 19 RESULT: SARS-CoV-2 (Agent of COVID-19) Not Detected by RT-PCR or equivalent method. This test has been authorized by FDA under an Emergency Use Authorization (EUA). [facility] Comment on above: Performed By: #### 9 4500-6 ####[facility]ORY[facility]IA [id number] [place] [address] [place] SURGICAL PATHOLOGYon 022 CASE REPORT [facility] Comment on above: Order Comment: Speci men Type: TISSUE SPECIMEN Ordering Facility: [facility] Address: [address] [place] [phone] Result Comment: Surg ica Pathology Report Case: [id number] Authorizing Provider: Jennifer Cuevas MD Collected: 09/07/2021 11:04 AM Ordering Location: [facility] Received: 09/07/2021 11:12 AM Pathologist: Oseas May MD Intraop: Derick Alvarez MD Specimen: UTERUS, CERVIX, BILATERAL FALLOPIAN TUBES AND BILATERAL OVARIES Performed By: #### S #### [facility] CLIA [id number] [address] DIAGNOSIS COMMENT Normal [facility] Comment on above: Order Comment: Speci men Type: TISSUE SPECIMEN Ordering Facility: [facility] Address: [address] [place], [place] [phone] Result Comment: Immu nohistochemical staining performed on [...] A11 and A16 were reviewed at the [facility] gynecologic pathology consensus conference via telepathology on 09/09/[address] Lupe Younger and Andra Franco agree with the diagnosis of acute salpingitis. Laboratory Developed Test (LDT) Disclaimer: Performance characteristics of immunohistochemical, immunofluorescent and chromogenic in-situ hybridization tests have been determined by the performing laboratory within [facility]???s [facility] [place] ([facility], [facility], [facility] or [facility]) in a manner consistent with CLIA requirements. One or more of these tests have not been cleared or approved by the FDA. [facility] is regulated under CLIA as qualified to perform high-complexity testing. These tests are used for clinical purposes. They should not be regarded as investigational or for research. Positive and negative controls stain appropriately. Performed By: #### S #### [facility] CLIA [id number] [address] FINAL DIAGNOSIS Normal [facility] Comment on above: Order Comment: Speci men Type: TISSUE SPECIMEN Ordering Facility: [facility] Address: [address] [place] [phone] Result Comment: A. U terus, cervix, bilateral [...] Performed By: #### S #### [facility] CLIA [id number] [address] [place] [address] FINAL PERFORMING LAB Normal [facility] Comment on above: Order Comment: Speci men Type: TISSUE SPECIMEN Ordering Facility: [facility] Address: [address] [place] [address] Result Comment: Diag nostic interpretation performed at [facility], [address] [place] [address] CLIA# [id number] Media Analyst: Alok Jonas M.D. Performed By: #### S #### [facility] CLIA [id number] [address] GROSS DESCRIPTION Normal [facility] Comment on above: Order Comment: Speci men Type: TISSUE SPECIMEN Ordering Facility: [facility] Address: [address] [address] Result Comment: A. U TERUS, CERVIX, BILATERAL [...] fibrous ovarian parenchyma with no lesions identified. Nursery Technician sections are submitted as follows: A1-anterior cervix [...] A 17-right ovary Gross examination performed at [facility], [address] [place] [address] CLIA#[id number] OLS September 08, 2021 10:33 AM Performed By: #### S #### [facility] CLIA [id number] [address] [place] INTRAOPERATIVE DIAGNOSIS Normal [facility] Comment on above: Order Comment: Speci men Type: TISSUE SPECIMEN Ordering Facility: [facility] Address: [address] [place] [address] Result Comment: A. U TERUS, CERVIX, BILATERAL FALLOPIAN TUBES AND BILATERAL OVARIES. Gross diagnosis: Uterus, cervix, bilateral fallopian tubes, bilateral ovaries- Endometrial tumor grossly invading greater than 50% into the uterine wall (AC) Performed By: #### S #### [facility] CLIA [id number] [address] [place] SYNOPTIC REPORT ENDOMETRIUM Normal [facility] Comment on above: Order Comment: Speci men Type: TISSUE SPECIMEN Ordering Facility: [facility] Address: [address] [place] [address] Result Comment: ENDO METRIUM, HYSTERECTOMY - All [...] Stage: IB Performed By: #### S #### [facility] CLIA [id number] [address] OF [facility] CBC panel Auto (Bld)on 09-01 Erythrocyte distribution width (RBC) [Ratio] 14.5 % Normal 11.5-15.0 [facility] Comment on above: Order Comment: Speci men Type: BLOOD SPECIMEN Ordering Facility: [facility] Address: [address] [address] Performed By: #### 5 8410-2 #### [facility] CLIA [id number] [address] STATES OF [facility] Hematocrit (Bld) [Volume fraction] 41.0 % Normal 36.0-46.0 [facility] Comment on above: Order Comment: Speci men Type: BLOOD SPECIMEN Ordering Facility: [facility] Address: [address] [address] Performed By: #### 5 8410-2 #### [facility] CLIA [id number] [address] [place] Hemoglobin (Bld) [Mass/Vol] 13.3 g/dL Normal 11.5-15.5 [facility] Comment on above: Order Comment: Speci men Type: BLOOD SPECIMEN Ordering Facility: [facility] Address: [address] [address] Performed By: #### 5 8410-2 #### [facility] CLIA [id number] [address] MCH (RBC) [Entitic mass] 28.8 pg Normal 26.0-34.0 [facility] Comment on above: Order Comment: Speci men Type: BLOOD SPECIMEN Ordering Facility: [facility] Address: [address] [place] [address] Performed By: #### 5 8410-2 #### [facility] CLIA [id number] [address] MCHC (RBC) [Mass/Vol] 32.4 g/dL Normal 30.5-36.0 [facility] Comment on above: Order Comment: Speci men Type: BLOOD SPECIMEN Ordering Facility: [facility] Address: [address] [place] [address] Performed By: #### 5 8410-2 #### [facility] CLIA [id number] [address] MCV (RBC) [Entitic vol] 88.7 fL Normal 80.0-100.0 [facility] Comment on above: Order Comment: Speci men Type: BLOOD SPECIMEN Ordering Facility: [facility] Address: [address] [place] [address] Performed By: #### 5 8410-2 #### [facility] CLIA [id number] [address] Nucleated RBC (Bld) [#/Vol] 10*3/uL Normal <0.01 [facility] Comment on above: Order Comment: Speci men Type: BLOOD SPECIMEN Ordering Facility: [facility] Address: [address] [place] [address] Performed By: #### 5 8410-2 #### [facility] CLIA [id number] [address] Platelet mean volume (Bld) [Entitic vol] 10.5 fL Normal 9.0-12.7 [facility] Comment on above: Order Comment: Speci men Type: BLOOD SPECIMEN Ordering Facility: [facility] Address: [address] [address] Performed By: #### 5 8410-2 #### [facility] CLIA [id number] [address] Platelets (Bld) [#/Vol] 167 10*3/uL Normal 150-400 [facility] Comment on above: Order Comment: Speci men Type: BLOOD SPECIMEN Ordering Facility: [facility] Address: [address] [place] [address] Performed By: #### 5 8410-2 #### [facility] CLIA [id number] [address] RBC (Bld) [#/Vol] 4.62 10*6/uL Normal 3.90-5.20 [facility] Comment on above: Order Comment: Speci men Type: BLOOD SPECIMEN Ordering Facility: [facility] Address: [address] [place] [address] Performed By: #### 5 8410-2 #### [facility] CLIA [id number] [address] WBC (Bld) [#/Vol] 6.29 10*3/uL Normal 3.70-11.00 [facility] Comment on above: Order Comment: Speci men Type: BLOOD SPECIMEN Ordering Facility: [facility] Address: [address] [place] [address] Performed By: #### 5 8410-2 #### [facility] CLIA [id number] [address] CONFIRM BLOOD TYPEon 022 ABO O Normal [facility] Comment on above: Order Comment: Speci men Type: BLOOD SPECIMEN Ordering Facility: [facility] Address: [address] [place] [address] Performed By: #### C ONABO #### [facility] CLIA [id number] [address] [place] [address] Rh Nom (Bld) Positive Normal [facility] Comment on above: Order Comment: Speci men Type: BLOOD SPECIMEN Ordering Facility: [facility] Address: [address] [place] [address] Performed By: #### C ONABO #### [facility] CLIA [id number] [address] HISTORY PHYSICALon HISTORY PHYSICAL HNO ID: [id number] Author: Naila Barrientos APRN.MICHELLE Service: ? Author [...] with Dr. Cuevas. Surgery will be at [facility] Scheduled as an TBA Have you been in contact with someone with known coronavirus/Covid 19? no Have you had surgery or pre testing at [facility] in the past 3 years? no [...] Negative for: AICD/PPM, chest pain, CHF, recent TX and open heart surgery. GI: Positive for: abdominal pain Negative for: nausea and vomiting. : No history of dysuria, frequency or incontinence, stones or chronic kidney disease. No difficulty urinating, nocturia > 1 time per night or hematuria. 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 [...] (more content not included)... Normal [facility] TYPE AND SCREEN,30 DAYon ABO O Normal [facility] Comment on above: Order Comment: Speci men Type: BLOOD SPECIMEN Ordering Facility: [facility] Address: [address] [place] [address] Performed By: #### T SCR30 #### [facility] BLOOD BANK CLIA [id number] [address] HISTORICAL AB SCR STATUS Negative [facility] Comment on above: Order Comment: Speci men Type: BLOOD SPECIMEN Ordering Facility: [facility] Address: [address] [place] [address] Performed By: #### T SCR30 #### [facility] BLOOD BANK CLIA [id number] [address] [place] [address] Rh Nom (Bld) Positive Normal [facility] Comment on above: Order Comment: Speci men Type: BLOOD SPECIMEN Ordering Facility: [facility] Address: [address] [place] [address] Performed By: #### T SCR30 #### [facility] BLOOD BANK CLIA [id number] [address] CNOVSPon 08-21-2021 CNOVSP Visit (SP) Office (ROGELIO) ----- VIDA NINA ([id number]) 1950 F Date Time Provider Department 08/21/21 1:30 PM JENNIFER CUEVAS During your visit today, we recorded the following information about you: Temperature Pulse Blood pressure Weight 97.8 degrees 113/minute 144/72 130 kg Height 1.651 m Jennifer Cuevas MD 08/26/2021 1:21 PM Signed Gynecologic Oncology [facility] Consult Date of service: 08/21/2021 PCP: [...] many years since she has seen a organic gardening teacher, maybe > 10 years. 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 Age at Menarche: ? Age at First : ? Age at Menopause: ? 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 Sexual Activity: Not Asked; [...] (more content not included)... Normal [facility] Darren 08-07-2021 SHORTY Telephone (ÁNGEL Sprague) ----- VIDA NINA ([id number]) 1950 F Date Time Provider Department 08/07/21 JENNIFER CUEVAS During your visit today, we recorded the following information about you: Jeffrey Ferris 08/07/2021 1:26 PM Signed Called gilberto the nurse at [facility] where the patient is living [...] ANTIBIOTICS) 07/15/2005 Date Reviewed: 07/29/2021 Reviewed by: Irnee Rodriguez MA - Fully Assessed Reason for [...] ERYTHEMATOSUS [M32.9] 07/15/2005 MYALGIA AND MYOSITIS NOS [[id number]] 07/15/2005 Elevated transaminase level [R74.01] 09/04/2014 Elevated blood sugar [R73.9] 09/04/2014 Mood disorder (HCC) [F39] 09/04/2014 Encounter Status:Closed by JEFFREY FERRIS on 08/07/21 Normal [facility] MICHELLENon 08-05-2021 CNPN Telephone (OBGYWM) ----- VIDA NINA ([id number]) 1950 F Date Time Provider Department 08/05/21 KRUNAL ERAZO OBGY During your visit today, we recorded the following information about you: Krunal Erazo MD 08/05/2021 8:30 AM Signed Called listed numbers under home phone, and the numbers are not working. Called number listed for patient's protective services case worker regarding results, but it was stated that patient does not have a protective services case worker currently. I was given the number [phone] to call, which is [facility] where patient resides. Called this number and left a VM asking them to call back regarding patient results. I had offered the patient a follow up visit this week to review results, but she did prefer a phone call. Pathology shows endometrioid adenocarcinoma. I will place a referral to acquisitions librarian oncology. Recommend that she see Dr. Jnenifer Cuevas in [place] as that would be the closest for her. Krunal Erazo MD 08/05/2021 10:06 AM Signed Discussed results with a nurse Gilberto over the phone and plan of care. She states patient saw an oncologist as well at [facility] and is scheduled for a CTAP. She will have the patient call our office back today for me to discuss results with her as well. Krunal Erazo MD 08/05/2021 10:19 AM Signed Discussed results with the patient and she understands the biopsy shows an endometrial cancer, and that I placed a referral to acquisitions librarian oncology for a consultation. Please assist in scheduling this patient. Andra Jesus RN 08/05/2021 11:33 AM Signed Scheduled patient with Dr. Cuevas this Tuesday, 08/07 at 1:00 PM. Spoke with the nurse, Gilberto. Patient's CT scan is scheduled for Tuesday. Phone number given to change appointment since transportation needs arranged. Notified Gilberto that he is in [place] on Tuesdays and every other Tuesday. 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] Order(s):CONSULT TO GYNECOLOGIC/ONCOLOGY [[id number]] Order #: [id number]: 1 FUTURE Prescriptions as of 08/05/2021 - [...] ERYTHEMATOSUS [M32.9] 07/15/2005 MYALGIA AND MYOSITIS NOS [[id number]] 07/15/2005 Elevated transaminase level [R74.01] 09/04/2014 Elevated blood sugar [R73.9] 09/04/2014 Mood disorder (HCC) [F39] 09/04/2014 Encounter Status:Closed by PAMELA MATUTE RN on 08/05/21 [facility] No Panel Informationon 07-30 CA 125 Antigen 85.5 U/mL 0.0-38.1 [facility] Work Phone: Comment on above: [employer] El ectrochemiluminescence Immunoassay(ECLIA)Values obtained with different assay methods or kits cannotbe used interchangeably. Results cannot be interpreted asabsolute evidence of the presence or absence of malignantdisease.Performed at: [address] [id number] Director: Suhas Deal PhD, Phone: [phone] CNOVon 07-29-2021 CNOV Office Visit (OBGYWM ) ----- VIDA NINA ([id number]) 1950 F Date Time Provider Department 07/29/21 [...] many years since she has seen a organic gardening teacher, maybe > 10 years. 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 Normal [facility] SURGICAL PATHOLOGYon SURGICAL PATHOLOGY ADDENDUM PRESENT Specimen originated from [facility] Specimen #: [id number] Submitting Physician: KRUNAL ERAZO, DO FINAL DIAGNOSIS [...] in-situ hybridization tests have been determined by [facility]'s [facility] and Laboratory Medicine [place] ([facility]) in a manner consistent with CLIA requirements. One or more of these tests have not been cleared or approved by the FDA. [facility] is regulated under CLIA as qualified to [...] completed on all uterine/endometrial carcinomas at the [facility]. IHC stains for MMR proteins were [...] more information or questions, please call the [facility] at . Andra Webb (more content not included)... Normal [facility] CNPElva 07-27-2021 CNPN Telephone (OBGYWM) ----- VIDA NINA ([id number]) 1950 F CPA Date Time Provider Department 07/27/21 KRUNAL ERAZO OBTRUDY During your visit today, we recorded the following information about you: Andra Jesus RN 07/27/2021 8:14 AM Signed KJ states that patient was seen at [facility] ER yesterday for vaginal bleeding and possible pelvic mass. Called [facility] ER and requested records and imaging [...] patient is minimally ambulatory and coming from [facility]. Since she is a new patient who is minimally ambulatory, and likely needs an EMB and cervical biopsies, would prefer to have 60 min appointment to get everything completed in one day as well as school adjustment counselor her. 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] 09/04/2014 Encounter Status:Closed by ELISABETH GREEN LPN on 07/27/21 Normal [facility] Absolute lymphocyte counton 07-26-2021 Lymphocytes Auto (Unsp spec) [#/Vol] 1.24 10*3/uL 0.83-4.51 [facility] Work Phone: Basophil percentageon 2021 Basophils/100 WBC (Bld) 0.6 % 0-1 [facility] Work Phone: Chloride [Moles/Vol] 105 mmol/L 98-107 [facility] Work Phone: Eosinophils/100 WBC (Bld) 3.9 % 0-5 [facility] Work Phone: Glucose [Mass/Vol] 185 mg/dL 74-106 [facility] Work Phone: Comment on above: Fasting Glucose resu lt greater than or equal to 126 mg/dL suggests DIABETES MELLITUS per A.D.A. criteria. Neutrophils (Bld) [#/Vol] 3.2 10*3/uL 2.0-7.7 [facility] Work Phone: Neutrophils/100 WBC (Bld) 62.1 % 47-70 [facility] Work Phone: Potassium [Moles/Vol] 4.4 mmol/L 3.5-5.1 [facility] Work Phone: Sodium [Moles/Vol] 135 mmol/L 136-[address] [facility] r [facility] Work Phone: WBC (Bld) [#/Vol] 5.1 10*3/uL 4.4-11.0 [facility] Work Phone: Blood erythrocytes count (nu mber/volume)on 07-26-2021 RBC (Bld) [#/Vol] 4.66 10*6/uL 4.2-5.4 [facility] Work [facility]: Blood hemoglobin measurement (mass/volume)on 07-26-2021 Hemoglobin (Bld) [Mass/Vol] 13.8 g/dL 12.0-15.0 [facility] Work Phone: Blood lymphocytes/100 leukoc yteson 07-26-2021 Lymphocytes/100 WBC (Bld) 24.5 % 19-41 [facility] Work Phone: Blood monocytes/100 leukocyt eson 07-26-2021 Monocytes/100 WBC (Bld) 8.5 % 0-10 [facility] Work Phone: Blood platelet mean volumeon 07-26-2021 Platelet mean volume (Bld) [Entitic vol] 10.1 fL 6.2-12.0 [facility] Work Phone: Determination of erythrocyte mean corpuscular volume (MCV)on 07-26-2021 MCV (RBC) [Entitic vol] 88.2 fL 81-99 [facility] Work Phone: Hematocrit Auto (Bld) [Volum e fraction]on 07-26-2021 Hematocrit (Bld) [Volume fraction] 41.1 % 37-47 [facility] Work Phone: Laboratory - Chemistry and C hemistry - challengeon 07-26-2021 CO2 [Moles/Vol] 24.0 mmol/L 21.0-32.0 [facility] Work Phone: Urea nitrogen/Creatinine [Mass ratio] 17.3 mg/mg 10- [facility] Work Phone: Laboratory - Hematology and Cell countson 07-26-2021 Erythrocyte distribution width (RBC) [Entitic vol] 46.8 fL 35.1-43.9 [facility] Work Phone: Erythrocyte distribution width (RBC) [Ratio] 14.6 % 11.6-14.6 [facility] Work Phone: Immature granulocytes/100 WBC (Bld) 0.400 % 0.0-0.9 [facility] Work Phone: Comment on above: IG% - Immature Granu locytes (promyelocytes, myelocytes and metamyelocytes) > 1% indicates that a LEFT SHIFT is Present. MCH (RBC) [Entitic mass] 29.6 pg 27.0-32.0 [facility] Work Phone: Nucleated RBC/100 WBC (Bld) [Ratio] 0 % 0-5 [facility] Work Phone: MCHC Auto (RBC) [Mass/Vol]on 07-26-2021 MCHC (RBC) [Mass/Vol] 33.6 g/dL 32-36 [facility] Work Phone: No Panel Informationon 07-26 Estimated Creatinine Clearance Calc 55.69 ml/min [facility] Work Phone: Estimated GFR (MDRD) Amer 84 mL/min >60 [facility] Work Phone: Comment on above: GFR Calc Estimated GFR (MDRD) Non-Af Amer 69 mL/min >60 [facility] Work Phone: Comment on above: Non- GFR Calc Platelets bldon 07-26-2021 Platelets (Bld) [#/Vol] 151 10*3/uL 150-450 [facility] Work Phone: Serum or plasma calcium kim urement (mass/volume)on 07-26-2021 Calcium [Mass/Vol] 9.2 mg/dL 8.5-10.1 [facility] Work Phone: Serum or plasma creatinine m easurement (mass/volume)on 07-26-2021 Creatinine [Mass/Vol] 0.87 mg/dL 0.55-1.02 [facility] Work Phone: Comment on above: The validity of the calculated GFR & GFRAA in patients over 70 years has not been determined. Clinical correlation is essential. Serum or plasma urea nitroge n measurement (mass/volume)on 07-26-2021 Urea nitrogen [Mass/Vol] 15 mg/dL 7-18 [facility] Work Phone: Thin prep Papanicolaou smear with manual screeningon 07-26-2021 Thin prep Papanicolaou smear with manual screening 6 5-15 [facility] Work Phone: Absolute lymphocyte counton 07-14-2021 Lymphocytes Auto (Unsp spec) [#/Vol] 1.32 10*3/uL 0.83-4.51 [facility] Work Phone: Basophil percentageon 2021 Basophils/100 WBC (Bld) 0.6 % 0-1 [facility] Work Phone: Bilirubin [Mass/Vol] 0.40 mg/dL 0.20-1.00 [facility] Work Phone: Comment on above: For patients on eltr ombopag therapy, use of Dimension [place] TBIL is not recommended. Chloride [Moles/Vol] 104 mmol/L 98-107 [facility] Work Phone: Eosinophils/100 WBC (Bld) 3.1 % 0-5 [facility] Work Phone: Glucose [Mass/Vol] 201 mg/dL 74-106 [facility] Work Phone: Comment on above: Glucose result great er than or equal to 200 mg/dLsuggests DIABETES MELLITUS per A.D.A. criteria. Neutrophils (Bld) [#/Vol] 3.0 10*3/uL 2.0-7.7 [facility] Work Phone: Neutrophils/100 WBC (Bld) 59.5 % 47-70 [facility] Work Phone: Potassium [Moles/Vol] 4.2 mmol/L 3.5-5.1 [facility] Work Phone: Protein [Mass/Vol] 7.6 g/dL 6.4-8.2 [facility] Work [facility]: Sodium [Moles/Vol] 136 mmol/L 136-145 [facility] Work Phone: WBC (Bld) [#/Vol] 5.1 10*3/uL 4.4-11.0 [facility] Work Phone: Blood erythrocytes count (nu mber/volume)on 07-14-2021 RBC (Bld) [#/Vol] 4.23 10*6/uL 4.2-5.4 [facility] Work Phone: Blood hemoglobin measurement (mass/volume)on 07-14-2021 Hemoglobin (Bld) [Mass/Vol] 12.9 g/dL 12.0-15.0 [facility] Work Phone: Blood lymphocytes/100 leukoc yteson 07-14-2021 Lymphocytes/100 WBC (Bld) 26.0 % 19-41 [facility] Work Phone: Blood monocytes/100 leukocyt eson 07-14-2021 Monocytes/100 WBC (Bld) 10.4 % 0-10 [facility] Work Phone: Blood platelet mean volumeon 07-14-2021 Platelet mean volume (Bld) [Entitic vol] 10.9 fL 6.2-12.0 [facility] Work Phone: Determination of erythrocyte mean corpuscular volume (MCV)on 07-14-2021 MCV (RBC) [Entitic vol] 88.9 fL 81-99 [facility] Work Phone: Hematocrit Auto (Bld) [Volum e fraction]on 07-14-2021 Hematocrit (Bld) [Volume fraction] 37.6 % 37-47 [facility] Work Phone: Laboratory - Chemistry and C hemistry - challengeon 07-14-2021 ALP [Catalytic activity/Vol] 144 U/L 45-117 [facility] Work Phone: ALT [Catalytic activity/Vol] 28 U/L 13-56 [facility] Work Phone: CO2 [Moles/Vol] 24.0 mmol/L 21.0-32.0 [facility] Work Phone: Globulin (S) [Mass/Vol] 4.7 g/dL 2.2-4.2 [facility] Work Phone: Urea nitrogen/Creatinine [Mass ratio] 18.0 mg/mg 10-20 [facility] Work Phone: Laboratory - Hematology and Cell countson 07-14-2021 Erythrocyte distribution width (RBC) [Entitic vol] 46.7 fL 35.1-43.9 [facility] Work Phone: Erythrocyte distribution width (RBC) [Ratio] 14.5 % 11.6-14.6 [facility] Work Phone: Immature granulocytes/100 WBC (Bld) 0.400 % 0.0-0.9 [facility] Work Phone: Comment on above: IG% - Immature Granu locytes (promyelocytes, myelocytes and metamyelocytes) > 1% indicates that a LEFT SHIFT is Present. MCH (RBC) [Entitic mass] 30.5 pg 27.0-32.0 [facility] Work Phone: Nucleated RBC/100 WBC (Bld) [Ratio] 0 % 0-5 [facility] Work Phone: MCHC Auto (RBC) [Mass/Vol]on 07-14-2021 MCHC (RBC) [Mass/Vol] 34.3 g/dL 32-36 [facility] Work Phone: No Panel Informationon 07-14 Estimated GFR (MDRD) Amer 95 mL/min >60 [facility] Work Phone: Comment on above: GFR Calc Estimated GFR (MDRD) Non-Af Amer 78 mL/min >60 [facility] Work Phone: Comment on above: Non- GFR Calc Vitamin D 25-Hydroxy 79.0 ng/mL [facility] Work Phone: Comment on above: Vitamin D 25(OH) Sta tus Range Deficiency <20 ng/mL (50nmol/L) Insufficiency 20 - 30 ng/mL (50 - 75 nmol/L) Sufficiency 30 - 100 ng/mL (75 - 250 nmol/L) Toxicity >100 ng/mL (>250 nmol/L) Platelets bldon 07-14-2021 Platelets (Bld) [#/Vol] 170 10*3/uL 150-450 [facility] Work Phone: Serum or plasma albumin kim urement (mass/volume)on 07-14-2021 Albumin [Mass/Vol] 2.9 g/dL 3.2-5.0 [facility] Work Phone: Serum or plasma albumin/glob ulin mass ratioon 07-14-2021 Albumin/Globulin [Mass ratio] 0.6 {ratio} 0.9-2.4 [facility] Work Phone: Serum or plasma calcium kim urement (mass/volume)on 07-14-2021 Calcium [Mass/Vol] 8.7 mg/dL 8.5-10.1 [facility] Work Phone: Serum or plasma creatinine m easurement (mass/volume)on 07-14-2021 Creatinine [Mass/Vol] 0.78 mg/dL 0.55-1.02 [facility] Work Phone: Comment on above: The validity of the calculated GFR & GFRAA in patients over 70 years has not been determined. Clinical correlation is essential. Serum or plasma urea nitroge n measurement (mass/volume)on 07-14-2021 Urea nitrogen [Mass/Vol] 14 mg/dL 7-18 [facility] Work Phone: Thin prep Papanicolaou smear with manual screeningon 07-14-2021 Thin prep Papanicolaou smear with manual screening 26 U/L 15-37 [facility] Work Phone: Thin prep Papanicolaou smear with manual screening 8 5-15 [facility] Work Phone: Absolute lymphocyte counton 07-08-2021 Lymphocytes Auto (Unsp spec) [#/Vol] 1.26 10*3/uL 0.83-4.51 [facility] Work Phone: Basophil percentageon 2021 Basophils/100 WBC (Bld) 0.6 % 0-1 [facility] Work Phone: Bilirubin [Mass/Vol] 0.40 mg/dL 0.20-1.00 [facility] Work Phone: Comment on above: For patients on eltr ombopag therapy, use of [employer] [place] TBIL is not recommended. Chloride [Moles/Vol] 104 mmol/L 98-107 [facility] Work Phone: Eosinophils/100 WBC (Bld) 4.5 % 0-5 [facility] Work Phone: Glucose [Mass/Vol] 181 mg/dL 74-106 [facility] Work Phone: Comment on above: Fasting Glucose resu lt greater than or equal to 126 mg/dL suggests DIABETES MELLITUS per A.D.A. criteria. Neutrophils (Bld) [#/Vol] 2.8 10*3/uL 2.0-7.7 [facility] Work Phone: Neutrophils/100 WBC (Bld) 58.0 % 47-70 [facility] Work Phone: Potassium [Moles/Vol] 4.5 mmol/L 3.5-5.1 [facility] Work Phone: Protein [Mass/Vol] 7.5 g/dL 6.4-8.2 [facility] Work Phone: Sodium [Moles/Vol] 136 mmol/L 136-145 [facility] Work Phone: WBC (Bld) [#/Vol] 4.9 10*3/uL 4.4-11.0 [facility] Work Phone: Blood erythrocytes count (nu mber/volume)on 07-08-2021 RBC (Bld) [#/Vol] 4.16 10*6/uL 4.2-5.4 [facility] Work Phone: Blood hemoglobin measurement (mass/volume)on 07-08-2021 Hemoglobin (Bld) [Mass/Vol] 12.2 g/dL 12.0-15.0 [facility] Work Phone: Blood lymphocytes/100 leukoc yteson 07-08-2021 Lymphocytes/100 WBC (Bld) 25.7 % 19-41 [facility] Work Phone: Blood monocytes/100 leukocyt eson 07-08-2021 Monocytes/100 WBC (Bld) 10.8 % 0-10 [facility] Work Phone: Blood platelet mean volumeon 07-08-2021 Platelet mean volume (Bld) [Entitic vol] 11.2 fL 6.2-12.0 [facility] Work Phone: Determination of erythrocyte mean corpuscular volume (MCV)on 07-08-2021 MCV (RBC) [Entitic vol] 89.2 fL 81-99 [facility] Work Phone: Hematocrit Auto (Bld) [Volum e fraction]on 07-08-2021 Hematocrit (Bld) [Volume fraction] 37.1 % 37-47 [facility] Work Phone: Laboratory - Chemistry and C hemistry - challengeon 07-08-2021 ALP [Catalytic activity/Vol] 131 U/L 45-117 [facility] Work Phone: ALT [Catalytic activity/Vol] 32 U/L 13-56 [facility] Work Phone: CO2 [Moles/Vol] 23.0 mmol/L 21.0-32.0 [facility] Work Phone: Globulin (S) [Mass/Vol] 4.6 g/dL 2.2-4.2 [facility] Work Phone: Urea nitrogen/Creatinine [Mass ratio] 18.5 mg/mg 10-20 [facility] Work Phone: Laboratory - Hematology and Cell countson 07-08-2021 Erythrocyte distribution width (RBC) [Entitic vol] 47.6 fL 35.1-43.9 [facility] Work Phone: Erythrocyte distribution width (RBC) [Ratio] 14.6 % 11.6-14.6 [facility] Work Phone: Immature granulocytes/100 WBC (Bld) 0.400 % 0.0-0.9 [facility] Work Phone: Comment on above: IG% - Immature Granu locytes (promyelocytes, myelocytes and metamyelocytes) > 1% indicates that a LEFT SHIFT is Present. MCH (RBC) [Entitic mass] 29.3 pg 27.0-32.0 [facility] Work Phone: Nucleated RBC/100 WBC (Bld) [Ratio] 0 % 0-5 [facility] Work Phone: MCHC Auto (RBC) [Mass/Vol]on 07-08-2021 MCHC (RBC) [Mass/Vol] 32.9 g/dL 32-36 [facility] Work Phone: No Panel Informationon 07-08 Estimated GFR (MDRD) Amer 84 mL/min >60 [facility] Work Phone: Comment on above: GFR Calc Estimated GFR (MDRD) Non-Af Amer 69 mL/min >60 [facility] Work Phone: Comment on above: Non- GFR Calc Vitamin D 25-Hydroxy 88.3 ng/mL [facility] Work Phone: Comment on above: Vitamin D 25(OH) Sta tus Range Deficiency <20 ng/mL (50nmol/L) Insufficiency 20 - 30 ng/mL (50 - 75 nmol/L) Sufficiency 30 - 100 ng/mL (75 - 250 nmol/L) Toxicity >100 ng/mL (>250 nmol/L) Platelets bldon 07-08-2021 Platelets (Bld) [#/Vol] 159 10*3/uL 150-450 [facility] Work Phone: Serum or plasma albumin kim urement (mass/volume)on 07-08-2021 Albumin [Mass/Vol] 2.9 g/dL 3.2-5.0 [facility] Work Phone: Serum or plasma albumin/glob ulin mass ratioon 07-08-2021 Albumin/Globulin [Mass ratio] 0.6 {ratio} 0.9-2.4 [facility] Work Phone: Serum or plasma calcium kim urement (mass/volume)on 07-08-2021 Calcium [Mass/Vol] 9.0 mg/dL 8.5-10.1 [facility] Work Phone: Serum or plasma creatinine m easurement (mass/volume)on 07-08-2021 Creatinine [Mass/Vol] 0.87 mg/dL 0.55-1.02 [facility] Work Phone: Comment on above: The validity of the calculated GFR & GFRAA in patients over 70 years has not been determined. Clinical correlation is essential. Serum or plasma urea nitroge n measurement (mass/volume)on 07-08-2021 Urea nitrogen [Mass/Vol] 16 mg/dL 7-18 [facility] Work Phone: Thin prep Papanicolaou smear with manual screeningon 07-08-2021 Thin prep Papanicolaou smear with manual screening 32 U/L 15-37 [facility] Work Phone: Thin prep Papanicolaou smear with manual screening 9 5-15 [facility] Work Phone: No Panel Informationon 06-12 Vitamin D 25-Hydroxy 101.7 ng/mL [facility] Work Phone: Comment on above: Vitamin D [...] with Vitamin D test results. Office Visit: [facility] 10-26-2016 Adolescent depression screening assessment Adolescent depression screening assessment Invalid Interpretation Code [facility] Work Phone: Documentation of current medications (procedure) Done Invalid Interpretation Code [facility] Work Phone: Fall risk assessment Fall risk assessment Invali d Interpretation Code [facility] Work Phone: Tobacco smoking status NHIS Never Invalid Interpretation Code [facility] Work Phone: Tobacco use CPHS Former smoker Invalid Interpretation Code [facility] Work Phone: Office Visit: [facility] 11-05-2015 Breast Mammogram screening Normal Bilateral Invalid Interpretation Code [facility] Work Phone: Colonoscopy (procedure) Colonoscopy (procedure) Invalid Interpretation Code [facility] Work Phone: Culture, urine Bacteria identified Cx Nom (U) Negative [facility] Work Phone: Bacteria identified Cx Nom (U) Escherichia coli [facility] Work Phone: Laboratory - Microbiology an d Antimicrobial susceptibility Bacteria identified Cx Nom (Bld) Negative [facility] Work Phone: No Panel Information SARS-CoV-2 & FLU Antigen (Rapid) [facility] Work Phone: Vital Signs Date Time Vital Sign Value Performing [facility] 10-11-2024 07:00-0400 SaO2% (BldA) [Mass fraction] 95 % Dr. Shayna Malhotra MD Work Phone: [facility] 10-11-2024 06:49-0400 Body temperature 97.6 [degF] Dr. Shayna Malhotra MD Work Phone: [facility] 10-11-2024 06:49-0400 Diastolic blood pressure 76 mm[Hg] Dr. Shayna Malhotra MD Work Phone: [facility] 10-11-2024 06:49-0400 Heart rate 106 /min Dr. Shayna Malhotra MD Work Phone: [facility] 10-11-2024 06:49-0400 Respiratory rate 20 /min Dr. Shayna Malhotra MD Work Phone: [facility] 10-11-2024 06:49-0400 Systolic blood pressure 153 mm[Hg] Dr. Shayna Malhotra MD Work Phone: [facility] 10-11-2024 06:00-0400 Body mass index (BMI) [Ratio] 49.6 kg/m2 Dr. Shayna Malhotra MD Work Phone: [facility] 10-11-2024 06:00-0400 Body weight 135.[address] Shanya Malhotra MD Work Phone: [facility] 10-10-2024 14:58-0400 Body height 165.[address] Shayna Malhotra MD Work Phone: [facility] 10-09-2024 20:55-0400 Diastolic blood pressure 57 mm[Hg] Dr. Shayna Malhotra MD Work Phone: [facility] 10-09-2024 20:55-0400 Heart rate 102 /min Dr. Shayna Malhotra MD Work Phone: [facility] 10-09-2024 20:55-0400 Respiratory rate 20 /min Dr. Shayna Malhotra MD Work Phone: [facility] 10-09-2024 20:55-0400 SaO2% (BldA) [Mass fraction] 98 % Dr. Shayna Malhotra MD Work Phone: [facility] 10-09-2024 20:55-0400 Systolic blood pressure 121 mm[Hg] Dr. Shayna Malhotra MD Work Phone: [facility] 10-09-2024 16:55-0400 Body height 165.[address] Shayna Malhotra MD Work Phone: [facility] 10-09-2024 16:55-0400 Body mass index (BMI) [Ratio] 49.1 kg/m2 Dr. Shayna Malhotra MD Work Phone: [facility] 10-09-2024 16:55-0400 Body temperature 97.8 [degF] Dr. Shayna Malhotra MD Work Phone: [facility] 10-09-2024 16:55-0400 Body weight [address] Shayna Malhotra MD Work Phone: [facility] 07-04-2024 13:06-0500 Body mass index (BMI) [Ratio] 49.9 kg/m2 Dr. Shayna Malhotra MD Work Phone: [facility] 07-04-2024 13:06-0500 Body temperature 97.8 [degF] Dr. hSayna Malhotra MD Work Phone: [facility] 07-04-2024 13:06-0500 Body weight 136.[address] Shayna Malhotra MD Work Phone: [facility] 07-04-2024 13:06-0500 Diastolic blood pressure 80 mm[Hg] Dr. Shayna Malhotra MD Work Phone: [facility] 07-04-2024 13:06-0500 Heart rate 107 /min Dr. Shayna Malhotra MD Work Phone: [facility] 07-04-2024 13:06-0500 Respiratory rate 16 /min Dr. Shayna Malhotra MD Work Phone: [facility] 07-04-2024 13:06-0500 SaO2% (BldA) [Mass fraction] 94 % Dr. Shayna Malhotra MD Work Phone: [facility] 07-04-2024 13:06-0500 Systolic blood pressure 142 mm[Hg] Dr. Shayna Malhotra MD Work Phone: [facility] 01-09-2023 19:06-0400 Body temperature 99.5 [degF] Dr. Shayna Malhotra Work Phone: [facility] 01-09-2023 19:06-0400 Heart rate 115 /min Dr. Shayna Malhotra Work Phone: [facility] 01-09-2023 19:06-0400 Respiratory rate 16 /min Dr. Shayna Malhotra Work Phone: [facility] 01-09-2023 19:06-0400 SaO2% (BldA) [Mass fraction] 95 % Dr. Shayna Malhotra Work Phone: [facility] 01-09-2023 17:53-0400 Diastolic blood pressure 89 mm[Hg] Dr. Shayna Malhotra Work Phone: [facility] 01-09-2023 17:53-0400 Systolic blood pressure 166 mm[Hg] Dr. Shayna Malhotra Work Phone: [facility] 01-09-2023 17:15-0400 Body height 165.[address] Shayna Malhotra Work Phone: [facility] 01-09-2023 17:15-0400 Body mass index (BMI) [Ratio] 51 kg/m2 Dr. Shayna Malhotra Work Phone: [facility] 01-09-2023 17:15-0400 Body weight 139.[address] Shayna Malhotra Work Phone: [facility] 11-24-2022 13:42-0400 Body mass index (BMI) [Ratio] 51.4 kg/m2 Dr. Shayna Malhotra Work Phone: [facility] 11-24-2022 13:42-0400 Body temperature 97.9 [degF] Dr. Shayna Malhotra Work Phone: [facility] 11-24-2022 13:42-0400 Body weight 140.[address] Shayna Malhotra Work Phone: [facility] 11-24-2022 13:42-0400 Diastolic blood pressure 67 mm[Hg] Dr. Shayna Malhotra Work Phone: [facility] 11-24-2022 13:42-0400 Heart rate 112 /min Dr. Shayna Malhotra Work Phone: [facility] 11-24-2022 13:42-0400 Respiratory rate 20 /min Dr. Shayna Malhotra Work Phone: [facility] 11-24-2022 13:42-0400 SaO2% (BldA) [Mass fraction] 92 % Dr. Shayna Malhotra Work Phone: [facility] 11-24-2022 13:42-0400 Systolic blood pressure 125 mm[Hg] Dr. Shayna Malhotra Work Phone: [facility] 05-06-2022 16:07-0500 Body height 165.[address] Shayna Malhotra Work Phone: [facility] 05-06-2022 16:07-0500 Body mass index (BMI) [Ratio] 49.4 kg/m2 Dr. Shayna Malhotra Work Phone: [facility] 05-06-2022 16:07-0500 Body temperature 98.6 [degF] Dr. Shayna Malhotra Work Phone: [facility] 05-06-2022 16:07-0500 Body weight 134.[address] Shayna Malhotra Work Phone: [facility] 05-06-2022 16:07-0500 Diastolic blood pressure 91 mm[Hg] Dr. Shayna Malhotra Work Phone: [facility] 05-06-2022 16:07-0500 Heart rate 118 /min Dr. Shayna Malhotra Work Phone: [facility] 05-06-2022 16:07-0500 Respiratory rate 18 /min Dr. Shayna Malhotra Work Phone: [facility] 05-06-2022 16:07-0500 SaO2% (BldA) [Mass fraction] 96 % Dr. Shayna Malhotra Work Phone: [facility] 05-06-2022 16:07-0500 Systolic blood pressure 167 mm[Hg] Dr. Shayna Malhotra Work Phone: [facility] 11-24-2021 16:06-0400 Heart rate 100 /min Dr. Shayna Malhotra Work Phone: [facility] Work Phone: 11-24-2021 16:04-0400 Body temperature 98.4 [degF] Dr. Shayna Malhotra Work Phone: [facility] Work Phone: 11-24-2021 16:04-0400 Diastolic blood pressure 82 mm[Hg] Dr. Shayna Malhotra Work Phone: [facility] Work Phone: 11-24-2021 16:04-0400 Respiratory rate 17 /min Dr. Shayna Malhotra Work Phone: [facility] Work Phone: 11-24-2021 16:04-0400 SaO2% (BldA) [Mass fraction] 95 % Dr. Shayna Malhotra Work Phone: [facility] Work Phone: 11-24-2021 16:04-0400 Systolic blood pressure 147 mm[Hg] Dr. Shayna Malhotra Work Phone: [facility] Work Phone: 11-24-2021 08:43-0400 Body temperature 98 [degF] Dr. Shayna Malhotra Work Phone: [facility] Work Phone: 11-24-2021 08:43-0400 Diastolic blood pressure 61 mm[Hg] Dr. Shayna Malhotra Work Phone: [facility] Work Phone: 11-24-2021 08:43-0400 Heart rate 94 /min Dr. Shayna Malhotra Work Phone: [facility] Work Phone: 11-24-2021 08:43-0400 Respiratory rate 15 /min Dr. Shayna Malhotra Work Phone: [facility] Work Phone: 11-24-2021 08:43-0400 SaO2% (BldA) [Mass fraction] 95 % Dr. Shayna Malhotra Work Phone: [facility] Work Phone: 11-24-2021 08:43-0400 Systolic blood pressure 113 mm[Hg] Dr. Shayna Malhotra Work Phone: [facility] Work Phone: 11-24-2021 06:00-0400 Body weight 141.[address] Shayna Malhotra Work Phone: [facility] Work Phone: 11-23-2021 09:21-0400 Body height 165.[address] Shayna Malhotra Work Phone: [facility] Work Phone: 11-22-2021 17:49-0400 Body height 165.[address] Shayna Malhotra Work Phone: [facility] Work Phone: 11-22-2021 17:49-0400 Body mass index (BMI) [Ratio] 51.5 kg/m2 Dr. Shayna Malhotra Work Phone: [facility] Work Phone: 11-22-2021 17:49-0400 Body weight 140.[address] Shayna Malhotra Work Phone: [facility] Work Phone: 11-22-2021 17:05-0400 Body temperature 98.9 [degF] Dr. Shayna Malhotra Work Phone: [facility] Work Phone: 11-22-2021 17:05-0400 Diastolic blood pressure 78 mm[Hg] Dr. Shayna Malhotra Work Phone: [facility] Work Phone: 11-22-2021 17:05-0400 Heart rate 120 /min Dr. Shayna Malhotra Work Phone: [facility] Work Phone: 11-22-2021 17:05-0400 Respiratory rate 28 /min Dr. Shayna Malhotra Work Phone: [facility] Work Phone: 11-22-2021 17:05-0400 SaO2% (BldA) [Mass fraction] 96 % Dr. Shayna Malhotra Work Phone: [facility] Work Phone: 11-22-2021 17:05-0400 Systolic blood pressure 119 mm[Hg] Dr. Shayna Malhotra Work Phone: [facility] Work Phone: 10-02-2021 12:46-0400 Body height 165.1 cm Jennifer Cuevas MD Work Phone: [facility] 10-02-2021 12:46-0400 Body temperature 97.39 [degF] Jennifer Cuevas MD Work Phone: [facility] 10-02-2021 12:46-0400 Body weight 136.53 kg Jennifer Cuevas MD Work Phone: [facility] 10-02-2021 12:46-0400 Diastolic blood pressure 85 mm[Hg] Jennifer Cuevas MD Work Phone: [facility] 10-02-2021 12:46-0400 Heart rate 103 /min Jennifer Cuevas MD Work Phone: [facility] 10-02-2021 12:46-0400 Respiratory rate 20 /min Jennifer Cuevas MD Work Phone: [facility] 10-02-2021 12:46-0400 SaO2% (BldA) [Mass fraction] 98 % Jennifer Cuevas MD Work Phone: [facility] 10-02-2021 12:46-0400 Systolic blood pressure 152 mm[Hg] Jennifer Cuevas MD Work Phone: [facility] 09-22-2021 09:30-0400 Body temperature 98.4 [degF] Dr. Shayna Malhotra Work Phone: [facility] Work Phone: 09-22-2021 09:30-0400 Diastolic blood pressure 87 mm[Hg] Dr. Shayna Malhotra Work Phone: [facility] Work Phone: 09-22-2021 09:30-0400 Heart rate 85 /min Dr. Shayna Malhotra Work Phone: [facility] Work Phone: 09-22-2021 09:30-0400 Respiratory rate 17 /min Dr. Shayna Malhotra Work Phone: [facility] Work Phone: 09-22-2021 09:30-0400 SaO2% (BldA) [Mass fraction] 94 % Dr. Shayna Malhotra Work Phone: [facility] Work Phone: 09-22-2021 09:30-0400 Systolic blood pressure 151 mm[Hg] Dr. Shayna Malhotra Work Phone: [facility] Work Phone: 09-20-2021 13:57-0400 Body height 166.[address] Shayna Malhotra Work Phone: [facility] Work Phone: 09-20-2021 13:57-0400 Body weight 137.[address] Shayna Malhotra Work Phone: [facility] Work Phone: 09-20-2021 12:38-0400 Body mass index (BMI) [Ratio] 49.6 kg/m2 Dr. Shayna Malhotra Work Phone: [facility] Work Phone: 09-20-2021 12:06-0400 Body temperature 98 [degF] Dr. Shayna Malhotra Work Phone: [facility] Work Phone: 09-20-2021 12:06-0400 Diastolic blood pressure 71 mm[Hg] Dr. Shayna Malhotra Work Phone: [facility] Work Phone: 09-20-2021 12:06-0400 Heart rate 101 /min Dr. Shayna Malhotra Work Phone: [facility] Work Phone: 09-20-2021 12:06-0400 Respiratory rate 16 /min Dr. Shayna Malhotra Work Phone: [facility] Work Phone: 09-20-2021 12:06-0400 SaO2% (BldA) [Mass fraction] 97 % Dr. Shayna Malhotra Work Phone: [facility] Work Phone: 09-20-2021 12:06-0400 Systolic blood pressure 163 mm[Hg] Dr. Shayna Malhotra Work Phone: [facility] Work Phone: 09-20-2021 07:17-0400 Body height 165.[address] Shayna Malhotra Work Phone: [facility] Work Phone: 09-20-2021 07:17-0400 Body mass index (BMI) [Ratio] 52.5 kg/m2 Dr. Shayna Malhotra Work Phone: [facility] Work Phone: 09-20-2021 07:17-0400 Body weight 143.[address] Shayna Malhotra Work Phone: [facility] Work Phone: 09-01-2021 15:00-0400 Body height 165.1 cm [address] [facility] 09-01-2021 15:00-0400 Body temperature 97.5 [degF] Pst 1 [facility] 09-01-2021 15:00-0400 Body weight 128.82 kg Pst [address] [facility] 09-01-2021 15:00-0400 Diastolic blood pressure 71 mm[Hg] Pst [address] [facility] 09-01-2021 15:00-0400 Heart rate 97 /min Pst [address] [facility] 09-01-2021 15:00-0400 Respiratory rate 18 /min Pst 1 [facility] 09-01-2021 15:00-0400 SaO2% (BldA) [Mass fraction] 97 % Pst [address] [facility] 09-01-2021 15:00-0400 Systolic blood pressure 127 mm[Hg] Pst [address] [facility] 08-11-2021 09:26-0500 Body mass index (BMI) [Ratio] 50.9 kg/m2 Dr. Shayna Malhotra Work Phone: [facility] Work Phone: 08-11-2021 09:26-0500 Body temperature 98.2 [degF] Dr. Shayna Malhotra Work Phone: [facility] Work Phone: 08-11-2021 09:26-0500 Body weight 138.[address] Shayna Malhotra Work Phone: [facility] Work Phone: 08-11-2021 09:26-0500 Diastolic blood pressure 83 mm[Hg] Dr. Shayna Malhotra Work Phone: [facility] Work Phone: 08-11-2021 09:26-0500 Heart rate 114 /min Dr. Shayna Malhotra Work Phone: [facility] Work Phone: 08-11-2021 09:26-0500 Respiratory rate 16 /min Dr. Shayna Malhotra Work Phone: [facility] Work Phone: 08-11-2021 09:26-0500 SaO2% (BldA) [Mass fraction] 96 % Dr. Shayna Malhotra Work Phone: [facility] Work Phone: 08-11-2021 09:26-0500 Systolic blood pressure 151 mm[Hg] Dr. Shayna Malhotra Work Phone: [facility] Work Phone: 08-11-2021 08:26-0500 Body mass index (BMI) [Ratio] 50.9 kg/m2 Dr. Shayna Malhotra Work Phone: [facility] Work Phone: 08-11-2021 08:26-0500 Body temperature 98.2 [degF] Dr. Shayna Malhotra Work Phone: [facility] Work Phone: 08-11-2021 08:26-0500 Body weight 138.[address] Shayna Malhotra Work Phone: [facility] Work Phone: 08-11-2021 08:26-0500 Diastolic blood pressure 83 mm[Hg] Dr. Shayna Malhotra Work Phone: [facility] Work Phone: 08-11-2021 08:26-0500 Heart rate 114 /min Dr. Shayna Malhotra Work Phone: [facility] Work Phone: 08-11-2021 08:26-0500 Respiratory rate 16 /min Dr. Shayna Malhotra Work Phone: [facility] Work Phone: 08-11-2021 08:26-0500 SaO2% (BldA) [Mass fraction] 96 % Dr. Shayna Malhotra Work Phone: [facility] Work Phone: 08-11-2021 08:26-0500 Systolic blood pressure 151 mm[Hg] Dr. Shayna Malhotra Work Phone: [facility] Work Phone: 07-30-2021 14:36-0500 Body mass index (BMI) [Ratio] 50.8 kg/m2 Dr. Shayna Malhotra Work Phone: [facility] Work Phone: 07-30-2021 14:36-0500 Body temperature 98.6 [degF] Dr. Shayna Malhotra Work Phone: [facility] Work Phone: 07-30-2021 14:36-0500 Body weight 138.[address] Shayna Malhotra Work Phone: [facility] Work Phone: 07-30-2021 14:36-0500 Heart rate 106 /min Dr. Shayna Malhotra Work Phone: [facility] Work Phone: 07-30-2021 14:36-0500 Respiratory rate 15 /min Dr. Shayna Malhotra Work Phone: [facility] Work Phone: 07-30-2021 13:36-0500 Body mass index (BMI) [Ratio] 50.8 kg/m2 Dr. Shayna Malhotra Work Phone: [facility] Work Phone: 07-30-2021 13:36-0500 Body temperature 98.6 [degF] Dr. Shayna Malhotra Work Phone: [facility] Work Phone: 07-30-2021 13:36-0500 Body weight 138.[address] Shayna Malhotra Work Phone: [facility] Work Phone: 07-30-2021 13:36-0500 Heart rate 106 /min Dr. Shayna Malhotra Work Phone: [facility] Work Phone: 07-30-2021 13:36-0500 Respiratory rate 15 /min Dr. Shayna Malhotra Work Phone: [facility] Work Phone: 07-26-2021 12:28-0500 Diastolic blood pressure 72 mm[Hg] Dr. Shayna Malhotra Work Phone: [facility] Work Phone: 07-26-2021 12:28-0500 Heart rate 98 /min Dr. Shayna Malhotra Work Phone: [facility] Work Phone: 07-26-2021 12:28-0500 Respiratory rate 23 /min Dr. Shayna Malhotra Work Phone: [facility] Work Phone: 07-26-2021 12:28-0500 SaO2% (BldA) [Mass fraction] 99 % Dr. Shayna Malhotra Work Phone: [facility] Work Phone: 07-26-2021 12:28-0500 Systolic blood pressure 140 mm[Hg] Dr. Shayna Malhotra Work Phone: [facility] Work Phone: 07-26-2021 11:28-0500 Diastolic blood pressure 72 mm[Hg] Dr. Shayna Malhotra Work Phone: [facility] Work Phone: 07-26-2021 11:28-0500 Heart rate 98 /min Dr. Shayna Malhotra Work Phone: [facility] Work Phone: 07-26-2021 11:28-0500 Respiratory rate 23 /min Dr. Shayna Malhotra Work Phone: [facility] Work Phone: 07-26-2021 11:28-0500 SaO2% (BldA) [Mass fraction] 99 % Dr. Shayna Malhotra Work Phone: [facility] Work Phone: 07-26-2021 11:28-0500 Systolic blood pressure 140 mm[Hg] Dr. Shayna Malhotra Work Phone: [facility] Work Phone: 07-26-2021 09:16-0500 Body mass index (BMI) [Ratio] 52.2 kg/m2 Dr. Shayna Malhotra Work Phone: [facility] Work Phone: 07-26-2021 09:16-0500 Body temperature 97.2 [degF] Dr. Shayna Malhotra Work Phone: [facility] Work Phone: 07-26-2021 09:16-0500 Body weight 142.[address] Shayna Malhotra Work Phone: [facility] Work Phone: 07-26-2021 08:16-0500 Body mass index (BMI) [Ratio] 52.2 kg/m2 Dr. Shayna Malhotra Work Phone: [facility] Work Phone: 07-26-2021 08:16-0500 Body temperature 97.2 [degF] Dr. Shayna Malhotra Work Phone: [facility] Work Phone: 07-26-2021 08:16-0500 Body weight 142.[address] Shayna Malhotra Work Phone: [facility] Work Phone: 10-26-2016 15:36-0400 BMI (Body Mass Index) 41.6 kg/m2 Sena Cox NP [facility] Work Phone: 10-26-2016 15:36-0400 BP Diastolic 97 mm[Hg] Sena Cox NP [facility] Work Phone: 10-26-2016 15:36-0400 BP Systolic 155 mm[Hg] Sena Cox NP [facility] Work Phone: 10-26-2016 15:36-0400 BSA (Body Surface Area) 2.12 m2 Sena Cox [facility] Work Phone: 10-26-2016 15:36-0400 Height 162.56 cm Sena Cox NP [facility] Work Phone: 10-26-2016 15:36-0400 Pulse (Heart Rate) 101 /min [facility] Work Phone: 10-26-2016 15:36-0400 Pulse Oximetry 97 % Sena Cox NP [facility] Work Phone: 10-26-2016 15:36-0400 Respiratory Rate 16 /min Sena Cox NP [facility] Work Phone: 10-26-2016 15:36-0400 Weight 109.95 kg Sena Cox [employer] [facility] Work Phone: Encounters Encounter Date Encounter Type Care Provider Facility Start: 04-16-2025 [facility]ulatory [facility] Facility [facility] Start: 04-01-2025 ambulatory Shaynadesi Malhotra Facility :[facility] Start: 03-20-2025 ambulatory Shaynadesi Malhotra Facility :[facility] Start: 01-21-2025 ambulatory Shaynadesi Malhotra Facility :[facility] Start: 01-21-[address] Malathi Tomas MD -[facility] Work Phone: Start: 12-04-2024 End: 12-04-[address] Shayna Malhotra MD Work Phone: -[facility] Start: 12-04-2024 End: 12-04-[address] Malathi Tomas MD -[facility] Start: 12-04-2024 End: 12-04-2024 ambulatory Shayna Malhotra Facility:[facility] Start: 11-26-2024 ambulatory Shayna Marya Facility :[facility] Start: 11-26-[address] Malathi Tomas MD -[facility] Start: 11-07-2024 ambulatory Shaynadesi Malhotra Facility :[facility] Start: 11-01-2024 ambulatory Shaynadesi Malhotra Facility :[facility] Start: 10-30-2024 ambulatory Shayna Marya Facility :[facility] Start: 10-25-2024 ambulatory Shayna Marya Facility :[facility] Start: 10-11-2024 End: 10-11-2024 ambulatory Shea Lele Facility:[facility] Start: 10-10-2024 Non-patient / Non-visit Dr. Tyrell Page MD -[facility] Work Phone: Start: 10-09-2024 ambulatory Missael Whitfield ty:[facility] Start: 10-09-2024 End: 10-11-2024 Evaluation and management of inpatient Dr. Missael Hernandez DO -[facility] Work Phone: Start: 10-09-2024 Registered Referred Shayna Resendez [facility] Work Phone: Start: 10-08-2024 End: 10-09-2024 ambulatory Shayna ROSA Facility:[facility] Start: 07-09-2024 ambulatory Shayna ROAS Faci lity:[facility] Start: 07-09-2024 Registered Referred Shayna Puga [facility] Work Phone: Start: 07-04-2024 End: 07-04-[address] Shayna Malhotra MD -[facility] Work Phone: Start: 07-04-2024 End: 07-04-2024 ambulatory Shayna Malhotra Facility:[facility] Start: 06-22-2024 ambulatory Shaynadesi Malhotra Facility :[facility] Start: 05-28-2024 End: 05-28-2024 ambulatory [facility] Start: 07-08-2023 End: 07-08-2023 ambulatory [facility] Work Phone: Start: 07-08-2023 End: 07-08-2023 Departed Referred [facility] Work Phone: Start: 04-08-2023 End: 04-08-2023 Departed Referred [facility] Work Phone: Start: 01-09-2023 End: 01-09-2023 Emergency department patient visit Dr. Shyana Malhotra Work Phone: [facility] Work Phone: Start: 11-24-2022 End: 11-24-[address] Shayna Malhotra Work Phone: [facility] Work Phone: Start: 10-13-2022 End: 10-13-[address] Shayna Malhotra Work Phone: [facility] Work Phone: Start: 08-12-2022 End: 08-12-[address] Shayna Malhotra Work Phone: [facility] Work Phone: Start: 08-12-2022 End: 08-12-[address] Shayna Malhotra Work Phone: [facility] Start: 07-13-2022 End: 07-13-[address] Shayna Malhotra Work Phone: [facility] Work Phone: Start: 07-13-2022 End: 07-13-[address] Shayna Malhotra Work Phone: [facility] Start: 06-08-2022 End: 06-08-[address] Shayna Malhotra Work Phone: [facility] Work Phone: Start: 06-08-2022 End: 06-08-[address] Shayna Malhotra Work Phone: [facility] Start: 05-06-2022 End: 05-06-[address] Shayna Malhotra Work Phone: [facility] Start: 04-13-2022 End: 04-13-2022 ambulatory [facility] Work Phone: Start: 04-13-2022 End: 04-13-2022 Departed Referred [facility] Start: 01-01-2022 End: 01-01-[address] Shayna Malhotra Work Phone: [place] [id number] Start: 12-11-[address] Shayna Malhotra Work Phone: [place] [id number] Start: 12-01-[address] Shayna Malhotra Work Phone: [facility] [address] Start: 11-27-[address] Shayna Malhotra Work Phone: [facility] [address] Start: 11-24-2021 Non-patient / Non-visit Dr. Maryanne Malhotra Work Phone: [facility] Start: 11-23-2021 Non-patient / Non-visit Dr. Maryanne Malhotra Work Phone: [facility] Start: 11-23-2021 End: 11-24-2021 Non-patient / Non-visit Dr. Shayna Malhotra Work Phone: [facility] Start: 11-22-2021 Non-patient / Non-visit Dr. Maryanne Malhotra Work Phone: [facility] Start: 11-22-2021 End: 11-24-2021 Evaluation and management of inpatient Dr. Shayna Malhotra Work Phone: [facility] Start: 10-27-2021 End: 10-27-[address] Shayna Malhotra Work Phone: [facility] Start: 10-13-2021 End: 10-13-[address] Shayna Malhotra Work Phone: [facility] Start: 10-13-[address] Shayna Malhotra Work Phone: [facility] Start: 10-02-2021 End: 10-02-2021 ambulatory Jennifer Cuevas MD Work Phone: [facility] Comment on above: Endometrial cancer ( HCC) (Primary Dx) Start: 10-02-2021 End: 10-02-2021 Patient encounter procedure Jennifer Cuevas MD Work Phone: [facility] Start: 09-22-2021 Non-patient / Non-visit Dr. Maryanne Malhotra Work Phone: [facility] Start: 09-21-2021 Telephone encounter Jennifer prasad MD Work Phone: [facility] Comment on above: Appointment Cancelle d Start: 09-21-2021 Non-patient / Non-visit Dr. Maryanne Malhotra Work Phone: [facility] Start: 09-20-2021 Non-patient / Non-visit Dr. Maryanne Malhotra Work Phone: [facility] Start: 09-20-2021 End: 09-22-2021 Evaluation and management of inpatient Dr. Shayna Malhotra Work Phone: [facility] 3 Start: 09-10-2021 Telephone encounter Taniya Balderas APRN.CNP Work Phone: [facility] Comment on above: Results Start: 09-10-2021 End: 09-10-[address] Shayna Malhotra Work Phone: [facility] Start: 09-10-[address] Shayna Malhotra Work Phone: [facility] Start: 09-09-2021 Telephone encounter Jennifer prasad MD Work Phone: [facility] Comment on above: Patient Update Start: 09-01-2021 End: 09-01-2021 Admission to [address] Start: 09-01-2021 End: 09-01-[address] [...] encounter procedure Dr. Shayna Malhotra [facility] Phone[facility] Start: 08-07-2021 End: 08-07-[address] Shayna Malhotra [facility] Start: 07-30-[address] Shayna Malhotra Work Phone: [facility] Start: 07-30-2021 End: 07-30-[address] Shayna Malhotra Work Phone: [facility] Start: 07-26-2021 End: 07-26-2021 Emergency department patient visit Dr. Shayna Malhotra Work Phone: [facility] Start: 07-14-[address] Shayna Malhotra Work Phone: [facility] Start: 07-08-[address] Shayna Malhotra Work Phone: [facility] Start: 06-12-[address] Shayna Malhotra Work Phone: [facility] Procedures Date Procedure Procedure Detail Performing Clinician [...] X-ray Dr. Jean Malhotra Work Phone: Start: 04-17-2022 CT angiography of ch est with contrast Dr. Shayna Malhotra Work Phone: Start: 09-20-2021 Plain chest X-ray Dr. Jean Malhotra Work Phone: Start: 09-10-[address] Shayna Malhotra Work Phone: Start: 09-01-2021 Antibody screen Comment on above: Order Comment: Speci men Type: BLOOD SPECIMEN Ordering Facility: [facility] Address: [address] [place] [address] Performed By: #### T [id number] #### [facility] BLOOD [facility] CLIA [id number] [address] Start: 08-11-2021 Plain chest X-ray Dr. [...] Author Start: 10-11-2024 Patient discharge [facility] Start: 10-10-2024 [facility] Start: 10-10-2024 Consultation [facility] Start: 10-10-2024 Patient referral to dietitian [facility] Start: 10-09-2024 Following clinical pathway protocol [facility] Start: 10-09-2024 Assessment of risk o f venous thromboembolism [facility] Start: 10-09-2024 Care regimes management [facility] Start: 10-09-[address] [facility] Start: 10-09-2024 Insertion of cathete r into peripheral vein [facility] Start: 10-09-2024 Measuring intake and output [facility] Start: 10-09-2024 Notification of physician [facility] Start: 10-09-2024 Oxygen therapy [facility] Start: 10-09-2024 Providing care accor ding to standard [facility] Start: 10-09-2024 Provision of activit y privileges [facility] Start: 10-09-2024 Referral to occupati onal therapist [facility] Start: 10-09-2024 Referral to service [facility] Start: 10-09-2024 Seizure precautions [facility] Start: 10-09-2024 End: 10-09-2024 [facility] Start: 10-09-2024 MR Lower extremity W O contrast [facility] Start: 10-09-2024 MRI of lower extremity Extremi ty Lower without Contra [facility] Start: 10-09-[address] [facility] Start: 10-09-2024 Admission procedure [facility] Start: 10-09-2024 Hospital admission, emergency, from emergency room, medical nature [facility] Start: 10-09-2024 End: 10-10-2024 [facility] Start: 10-09-2024 Thyroid stimulating hormone measurement [facility] Start: 10-09-2024 Consultation [facility] Start: 10-09-2024 Bacteria identified in Urine by Culture Urine Culture [facility] Start: 10-09-2024 Urine culture [facility] Start: 10-09-2024 Consultation [facility] Start: 10-09-2024 Patient referral to dietitian [facility] Start: 09-07-2024 DIABETES SCREEN DIABETES SCREEN [facility] Start: 07-04-2024 Patient referral [facility] Work Phone: Start: 11-24-2022 Patient referral [facility] Work Phone: Start: 05-06-2022 Patient referral [facility] Work Phone: Start: 02-04-2022 Influenza vaccination INFLUENZ A (Season Ended) [facility] Start: 11-25-2021 [facility] Work Phone: Start: 11-24-2021 Patient discharge [facility] Work Phone: Start: 11-22-2021 Troponin I measurement [facility] Work Phone: Start: 11-22-[address] [facility] Work Phone: Start: 11-22-2021 Patient referral to dietitian [facility] Work Phone: Start: 11-22-2021 Following clinical pathway protocol [facility] Work Phone: Start: 11-22-2021 Assessment of risk o f venous thromboembolism [facility] Work Phone: Start: 11-22-2021 Care regimes management [facility] Work Phone: Start: 11-22-2021 Catheterization of vein [facility] Work Phone: Start: 11-22-2021 Insertion of cathete r into peripheral vein [facility] Work Phone: Start: 11-22-2021 Measuring intake and output [facility] Work Phone: Start: 11-22-2021 Providing care accor ding to standard [facility] Work Phone: Start: 11-22-2021 Provision of activit y privileges [facility] Work Phone: Start: 11-22-2021 Referral to occupati onal therapist [facility] Work Phone: Start: 11-22-2021 Referral to service [facility] Work Phone: Start: 11-22-2021 [facility] Work Phone: Start: 11-22-2021 Viral nucleic acid assay [facility] Work Phone: Start: 11-22-2021 Admission procedure [facility] Work Phone: Start: 11-22-2021 [facility] Work Phone: Start: 11-22-2021 End: 11-23-2021 [facility] Work Phone: Start: 11-22-2021 End: 11-22-2021 Blood culture [facility] Work Phone: Start: 09-22-2021 Patient discharge [facility] Work Phone: Start: 09-20-2021 End: 09-21-2021 [facility] Work Phone: Start: 09-20-2021 Following clinical pathway protocol [facility] Work Phone: Start: 09-20-2021 Assessment of risk o f venous thromboembolism [facility] Work Phone: Start: 09-20-2021 Care regimes management [facility] Work Phone: Start: 09-20-2021 Elevation of affecte d extremity [facility] Work Phone: Start: 09-20-2021 Insertion of cathete r into peripheral vein [facility] Work Phone: Start: 09-20-2021 Notification of physician [facility] Work Phone: Start: 09-20-2021 Providing care accor ding to standard [facility] Work Phone: Start: 09-20-2021 Provision of activit y privileges [facility] Work Phone: Start: 09-20-2021 Referral to occupati onal therapist [facility] Work Phone: Start: 09-20-2021 Referral to service [facility] Work Phone: Start: 09-20-2021 Self-administration of medication [facility] Work Phone: Start: 09-20-2021 Admission procedure [facility] Work Phone: Start: 09-20-2021 Patient referral to dietitian [facility] Work Phone: Start: 09-01-2021 End: [...] Expires: 11/01/2021 Start: 07-26-2021 Referral to oncologist [facility] Work Phone: Start: 06-06-2021 ADVANCE DIRECTIVE DISCUSSION ADVANCE DIRECTIVE DISCUSSION [facility] Start: 02-09-2021 LIPID SCREEN LIPID SCREEN [facility] Start: 02-04-2021 Influenza vaccination INFLUENZA (#1) [facility] Start: 03-01-2019 DIABETES SCREEN DIABETES SCREEN [facility] Start: 2017 BONE DENSITY BONE DENSITY [facility] Start: 2017 PNEUMOVAX AGE 65 AND OVER WITH 5YR LOOKBACK (#1) PNEUMOVAX AGE 65 AND OVER WITH 5YR LOOKBACK (#1) [facility] Start: 02-09-2017 Adult depression screening assessment DEPRESSION SCREENING [facility] Start: 02-09-2017 Mammography MAMMOGRAM [facility] Start: 12-09-2016 End: 12-09-2016 Appointment [facility] Work Phone: Start: 10-26-2016 End: 10-26-2016 Appointment Appointment [facility] Work Phone: Start: 10-26-2016 End: 10-26-2016 Appointment Appointment [facility] Work Phone: Start: 10-26-2016 End: 11-01-2016 *CMP Complete Metabolic Panel *CMP Complete Metabolic Panel [facility] Work Phone: Start: 10-26-2016 End: 11-01-2016 *Microalbumin, Creatine Ratio, rand urine *Microalbumin, Creatine Ratio, rand urine [facility] Work Phone: Start: 10-26-2016 End: 11-01-2016 HbA1c *HgA1C [facility] Work Phone: Start: 10-26-2016 End: 11-01-2016 Lipid panel [AGGREGATE] *Lipid Profile [facility] Work Phone: Start: 09-05-2011 PNEUMOCOCCAL: 65+ (2 - PCV) PNEUMOCOCCAL: 65+ (2 - PCV) [facility] Start: 2002 SHINGRIX VACCINE (1 of 2) SHINGRIX VACCINE (1 of 2) [facility] Start: 1997 COLOGUARD (FIT-DNA) COLOGUARD (FIT-D NA) [facility] Start: 1997 Colonoscopy COLONOSCOPY [facility] Start: 1997 COLORECTAL CANCER SCREENING COLORECTAL CANCER SCREENING [facility] Start: [address] COLONOGRAPHY [facility] Start: 1997 FECAL OCCULT BLOOD FECAL OCCULT BLOO D [facility] Start: 1997 SIGMOIDOSCOPY SIGMOIDOSCOPY [facility] Start: 12-28-1971 SHINGRIX VACCINE (1 of 2) SHINGRIX VACCINE (1 of 2) [facility] Start: 12-28-1971 Urine microalbumin profile DTAP,TDAP,TD (1 - Tdap) [facility] Start: 1957 COVID-19 VACCINE (#1) COVID-19 VACCI NE (#1) [facility] Start: 1957 COVID-19 VACCINE (1) COVID-19 VACCIN E (1) [facility] Amphetamines [Presen ce] in Urine by Screen method >1000 ng/mL [facility] Bacteria identified in Blood by Culture Blood Culture [facility] Work Phone: Bacteria identified in Urine by Culture Urine Culture [facility] Work Phone: Benzodiazepine measurement, urine [facility] Blood culture [facility] Work Phone: C reactive protein [Mass/volume] in Serum or Plasma [facility] Cancer Ag 125 [Units/volume] in Serum or Plasma [facility] Work Phone: Cocaine measurement, urine [facility] Erythrocyte sedimentation rate [facility] Ethanol [Mass/volume ] in Serum or Plasma [facility] fentaNYL [Presence] in Urine by Screen method [facility] Folate [Moles/volume ] in Serum or Plasma [facility] Hemoglobin A1c/Hemoglobin.total in Blood [facility] Magnesium measurement [facility] Methadone measuremen t, urine [facility] Patient Education [facility] Work Phone: Patient referral [facility] Work Phone: Phencyclidine [Prese nce] in Urine [facility] Troponin I measurement [facility] Work Phone: Urine cannabinoid measurement [facility] Urine culture [facility] Urine opiate measurement [facility] Immunizations Immunization Date Immunization Notes Care Provider Arlin sen 03-30-2016 influenza, injectabl e, quadrivalent, preservative free [facility] 03-30-2016 influenza, seasonal, injectable Dr. Shayna Malhotra Work Phone: [facility] 10-31-2012 influenza, injectabl e, quadrivalent, preservative free [facility] 10-31-2012 influenza, seasonal, injectable Dr. Shayna Malhotra Work Phone: [facility] 06-06-2012 pneumococcal polysaccharide vaccine, [address] Shayna Malhotra Work Phone: [facility] 09-04-2010 pneumococcal polysaccharide vaccine, 23 valent [facility] [address] [facility] Work Phone: Payers Date Payer Category Payer Self-pay [id number] 2021 Medicare [id number] [id number] 2016 Unknown [id number] 2016 Unknown [id number] Unknown [id number] 2.16.8 [id number] Unknown [id number] 2.16.8 40.1.569529.3.579.2.462 Unknown [id number] 2.16.8 40.1.238630.3.579.2.462 Unknown [id number] 2.16.8 40.1.258795.3.579.2.462 Unknown [id number] 2.16.8 40.1.135830.3.579.2.462 Unknown [id number] 2.16.8 40.1.496986.3.579.2.462 Unknown [id number] 2.16.8 40.1.049862.3.579.2.462 Unknown [id number] 2.16.8 40.1.119198.3.579.2.462 Unknown [id number] 2.16.8 40.1.324502.3.579.2.462 Unknown [id number] 2.16.8 40.1.767336.3.579.2.462 Unknown [id number] 2.16.8 40.1.673640.3.579.2.462 Unknown [id number] 2.16.8 40.1.976327.3.579.2.462 Unknown [id number] 2.16.8 40.1.359934.3.579.2.462 Unknown [id number] 2.16.8 40.1.598561.3.579.2.462 Unknown [id number] 2.16.8 40.1.659409.3.579.2.462 Unknown [id number] 2.16.8 40.1.901097.3.579.2.462 Unknown [id number] 2.16.8 40.1.866150.3.579.2.462 Unknown [id number] 2.16.8 40.1.641402.3.579.2.462 Unknown [id number] 2.16.8 40.1.674293.3.579.2.462 Unknown [id number] 2.16.8 40.1.177133.3.579.2.462 Unknown [id number] 2.16.8 40.1.171375.3.579.2.462 Social History Date Type Detail Facility Start: 07-29-2021 End: 10-09-2024 Tobacco smoking status LAIS Ex-smoker [facility] History of tobacco use Cigarette Smoker [facility] Start: 07-29-2021 Cigarettes smoked current (pack per day) - Reported 0.[address] [facility] Start: 07-29-2021 Tobacco use and exposure Smokeless tobacco non-user [facility] Start: 09-01-2021 End: 10-02-2021 Alcohol intake Current non-drinker of alcohol (finding) [facility] Start: 1950 Sex Assigned At Not on file [facility] Start: 08-22-2021 End: 10-02-2021 Exposure to SARS-CoV-2 (event) Not sure [facility] Start: 09-20-2021 End: 01-09-2023 Tobacco smoking status [facility] Unknown if ever smoked [facility] Start: 08-02-2017 None [facility] Start: 08-02-2017 Alone [facility] Start: 08-02-2017 Non-smoker [facility] Start: 1950 Sex Assigned At Female W [facility] Start: 10-09-2024 Sex Female (finding) [facility] Sex Female [facility] Medical Equipment Procedure Code Equipment Code [...] Activity Abili ty With Assist of 2 [facility] Work Phone: 10-10-2024 Functional status Active [employer] [facility] Work Phone: 11-24-2021 Functional status Ambulates;Chair [facility] Work Phone: 09-22-2021 Functional status Ambulates [facility] Work Phone: 09-22-2021 Functional status Ambulates [facility] Work Phone: 09-21-2021 Functional status Tolerates Activity Well [facility] Work Phone: Mental Status Date Assessment Result Facility 10-11-2024 Cognitive function Voice/Name [facility] Work Phone: 10-10-2024 Cognitive function Cooperative;Anxious;Ta lkative [facility] Work Phone: 11-24-2021 Cognitive function Voice/Name [facility] Work Phone: 09-22-2021 Cognitive function Voice/Name [facility] Work Phone: 09-20-2021 Cognitive function Level Of Cons ciousness Awake;Alert;Appropriate;Follow s Commands;Drowsy [facility] Work Phone: Clinical Notes 07-29-2021 to 10-11-2024 Note Date & Type Note Facility 10-11-[address] [facility] Medical Records Department [address] [place] [address] Discharge Summary 10/11/24 1135 MR#: [id number] Acct: [id number] Name: VIDA NINA Rep #: [id number] : 1950 73 From: Tyrell Page MD PCP: Dr. Shayna Malhotra MD Status:DIS IN Location: MS3 [id number] Providers Date of Admission: 10/09/24 Date of [...] with other specified complication Diabetes mellitus exterminator insulin use: with half-way use Qualified Code(s): E11.69 - Type 2 diabetes mellitus with other specified complication; Z79.4 - exterminator (current) use of insulin Plan 73-year-old female [...] edema. No soft tissue gas. Will consult import coordination and production head for further opinion. PT and OT and [...] 72.1 H, Lymph % (Auto) 16.3 L, [place] % (Auto) 8.3, Eos % (Auto) 2.5, Baso % (more content not included)... [facility] 10-10-2024 Progress note Note Date/Time October 10, 2024 4:49pm [facility] Medical Records Department [address] [place] [address] Progress Note - Hospitalist 10/10/24 0739 MR#: [id number] Acct: [id number] Name: VIDA NINA Rep #:[id number] : 1950 73 From: Tyrell Resendez PCP: Dr. Shayna Malhotra MD Status:ADM IN [facility] Reason for Visit Reason for Visit: Diagnoses Type 2 diabetes mellitus with other specified complication (10/09/24) Morbid (severe) obesity due to excess calories (10/09/24) Bipolar disorder, unspecified (10/09/24) Neuralgia and neuritis, unspecified (10/09/24) Acute cystitis with hematuria (10/09/24) Very low level of personal hygiene (10/09/24) Body mass index [BMI] 45.0-49.9, adult (10/09/24) Other specified health status (10/09/24) exterminator (current) use of insulin (10/09/24) Objective Data [...] 72.1 H, Lymph % (Auto) 16.3 L, Caswell % (Auto) 8.3, Eos % (Auto) 2.5, [...] Clarity Cloudy, Urine pH 5.0, Ur Specific [place] 1.020, Urine Protein 30 H, Urine Glucose [...] % (Auto) 65.4, Lymph % (Auto) 19.6, Caswell % (Auto) 9.1, Eos % (Auto) 5.1 [...] arthritic changes. Soft tissue swelling. Reading Location: [facility] Lower Extremity CT 10/09/24 22:15 IMPRESSION: [...] Hernandez at 2:20 a.m. 10/10/2024 Reading Location: [id number] Physical Exam Narrative Seen and examined. Patient [...] status: with other specified complication Diabetes mellitus half-way insulin use: with exterminator use Qualified Code(s): E11.69 - Type 2 diabetes mellitus with other specified complication; Z79.4 - longterm (current) use of insulin PLAN: Plan 73-year-old [...] edema. No soft tissue gas. Will consult import coordination and production head for further opinion. PT and OT and [...] 72.1 H, Lymph % (Auto) 16.3 L, [place]well % (Auto) 8.3, Eos % (Auto) 2.5, [...] Clarity Cloudy, Urine pH 5.0, Ur Specific [place] 1.020, Urine Protein 30 H, Urine Glucose [...] % (Auto) 65.4, Lymph % (Auto) 19.6, Caswell % (Auto) 9.1, Eos % (Auto) 5.1 [...] 165 H Charges/Coding Visit Charges Inpatient E&M: 62753 Subs Hosp L2 10/10/24 1530 <Electronically signed [...] need inpatient psych unit facility transfer 10/10/24 9106<Electronically signed by Tyrell Page MD> Cosigner Signature (if applicable): cc: ~* Signed [facility] Work Phone: 1(461) 161-262405-07-2025 Progress note [facility] Medical Records Department [address] [facility] [place] [address] Progress Note - Hospitalist 10/10/24 0739 MR#: [id number] Acct: [id number] Name: VIAD NINA Rep #:[id number] : 1950 73 From: Tyrell Resendez PCP: Dr. Shayna Malhotra MD Status:ADM IN Location: [place] [address] Reason for Visit Reason for Visit: Diagnoses Type 2 diabetes mellitus with other specified complication (10/09/24) Morbid (severe) obesity due to excess calories (10/09/24) Bipolar disorder, unspecified (10/09/24) Neuralgia and neuritis, unspecified (10/09/24) Acute cystitis with hematuria (10/09/24) Very low level of personal hygiene (10/09/24) Body mass index [BMI] 45.0-49.9, adult (10/09/24) Other specified health status (10/09/24) exterminator (current) use of insulin (10/09/24) Objective Data [...] 72.1 H, Lymph % (Auto) 16.3 L, Caswell % (Auto) 8.3, Eos % (Auto) 2.5, [...] Clarity Cloudy, Urine pH 5.0, Ur Specific [place] 1.020, Urine Protein 30 H, Urine Glucose [...] % (Auto) 65.4, Lymph % (Auto) 19.6, Caswell % (Auto) 9.1, Eos % (Auto) 5.1 [...] arthritic changes. Soft tissue swelling. Reading Location: [facility] Lower Extremity CT 10/09/24 22:15 IMPRESSION: [...] Hernandez at 2:20 a.m. 10/10/2024 Reading Location: [id number] Physical Exam Narrative Seen and examined. Patient [...] status: with other specified complication Diabetes mellitus half-way insulin use: with exterminator use Qualified Code(s): E11.69 - Type 2 diabetes mellitus with other specified complication; Z79.4 - longterm (current) use of insulin PLAN: Plan 73-year-old [...] edema. No soft tissue gas. Will consult import coordination and production head for further opinion. PT and OT and [...] 72.1 H, Lymph % (Auto) 16.3 L, Caswell % (Auto) 8.3, Eos % (Auto) 2.5, [...] Clarity Cloudy, Urine pH 5.0, Ur Specific [place] 1.020, Urine Protein 30 H, Urine Glucose [...] % (Auto) 65.4, Lymph % (Auto) 19.6, Caswell % (Auto) 9.1, Eos % (Auto) 5.1 [...] 165 H Charges/Coding Visit Charges Inpatient E&M: 68570 Subs Hosp L2 10/10/24 1530 Cosigner Signature [...] Cosigner Signature (if applicable): cc: ~* Signed [facility]05-07-2025 History and physical note Author Missael Lomeli [facility] Note Date/Time October 10, 2024 6:53am [facility] Medical Records Department [address] [facility] [place] [address] H&P Exam - Hospitalist 10/09/242118 MR#: [id number] Acct: [id number] Name: VIDA NINA Rep #:[id number] : 1950 73 From: Missael Joiner DO PCP: Dr. Shayna Malhotra MD Status:ADM IN [facility] - General General Date of Admission: [...] is currently residing in assisted living at [facility] presents to [facility] ER complaining of worsening Left [...] skin folds and extremely poor hygiene with PACU RN having social work consulted and patient felt [...] is expected to extend beyond 2 midnights. [facility] Medical History Obesity Anxiety Cancer Anxiety Diabetes [...] acetonide 0.1 % 1 applic topical Q12H WA N PRN Rash 09/20/21 Unknown History topical [...] D #0 grams 11/24/21 Unknown Rx powder ([facility]) quetiapine 100 mg tablet 300 mg [...] Reaction Status Date / [facility] Allergy Mild Anaphylaxis Verified 10/09/24 16:55 ciprofloxacin [...] (Auto) 72.1 H, Lymph % (Auto) 16.3 L,Caswell % (Auto) 8.3, Eos % (Auto) 2.5, [...] Clarity Cloudy, Urine pH 5.0, Ur Specific [place] 1.020, Urine Protein 30 H, Urine Glucose [...] changes. Soft tissue swelling. Reading Location: [facility] Imaging Services [address] [place] [address] Extremity Lower without Contra MR#: [id number] Acct: [id number] Name: VIDA NINA Rep #: [id number] : 1950 F 73 From: Saul Sanchez MD PCP: Dr. Shayna Malhotra MD Status: ADM IN Study: Extremity Lower without Contra Date of Exam: 10/09/24 Exam# [id number] Ordering Dr: Missael Hernandez DO PROCEDURE: EXTREMITY [...] Hernandez at 2:20 a.m. 10/10/2024 Reading Location: [facility] CC: Dr. Missael Hernandez, ; Dr. Shayna Malhotra MD ~ Sports Management Professor: Signed Assessment & Plan Assessment/Plan (1) Acute cystitis with hematuria: (2) Neuropathic pain of foot: (3) Poor hygiene: (4) Unable to care for self: (5) Bipolar 1 disorder: (6) Morbid obesity with BMI of 45.0-49.9, adult: (7) DM2 (diabetes mellitus, type 2): QUALIFIERS: Diabetes mellitus complication status: with other specified complication Diabetes mellitus half-way insulin use: with half-way use Qualified Code(s): E11.69 - Type 2 diabetes mellitus with other specified complication; Z79.4 - longterm (current) use of insulin PLAN: Plan 1. Acute Cystitis; with microscopic hematuria in the setting of known frequent UTIs - Admit to general medical floor. Continue empiric IV ceftriaxone and await culture and sensitivity data. Give acetaminophen as needed for nupp-xt-eajqjipa (level 1- 5/10) pain or fever. Give [...] 75 minutes. Charges/Coding Visit Charges Inpatient E&M: 03777 Init Hosp L3 10/10/24 0653 <Electronically signed by Missael Hernandez DO> Cosigner Signature (if applicable): CC: Dr. Missael Hernandez DO; Dr. Shayna Malhotra MD~ Signed [facility] Work Phone: 1(554) 909-118305-07-2025 History and physical note [facility] Medical Records Department [address] [place] [address] H&P Exam - Hospitalist 10/09/242118 MR#: [id number] Acct: [id number] Name: VIDA NINA #:[id number] : 1950 73 From: Missael Joiner DO PCP: Dr. Shayna Malhotra MD Status:ADM IN Location: [facility]19-3 [facility] - General General Date of Admission: [...] is currently residing in assisted living at [facility] [place] presents to [facility] ER complaining of worsening Leftheel [...] skin folds and extremely poor hygiene with PACU RN having social work consulted and patient felt [...] is expected to extend beyond 2 midnights. [facility] Medical History Obesity Anxiety Cancer Anxiety Diabetes [...] acetonide 0.1 % 1 applic topical Q12H WA N PRN Rash 09/20/21 Unknown History topical [...] D #0 grams 11/24/21 Unknown Rx powder ([facility]) quetiapine 100 mg tablet 300 mg [...] (Auto) 72.1 H, Lymph % (Auto) 16.3 L,Caswell % (Auto) 8.3, Eos % (Auto) 2.5, [...] Clarity Cloudy, Urine pH 5.0, Ur Specific Richmond 1.020, Urine Protein 30 H, Urine Glucose [...] changes. Soft tissue swelling. Reading Location: [facility] Imaging Services [address] [place], [place] [id number] Extremity Lower without Contra MR#: [id number] Acct: [id number] Name: VIDA NINA Rep #: [id number] : 1950 F 73 From: Saul Sanchez MD PCP: Dr. Shayna Malhotra MD Status: ADM IN Study: Extremity Lower without Contra Date of Exam: 10/09/24 Exam# [id number] Ordering Dr: Missael Hernandez DO PROCEDURE: EXTREMITY [...] Hernandez at 2:20 a.m. 10/10/2024 Reading Location: [facility] CC: Dr. Missael Hernandez DO; Dr. Shayna Malhotra MD ~ Sports Management Professor: Signed Assessment & Plan Assessment/Plan (1) Acute cystitis with hematuria: (2) Neuropathic pain of foot: (3) Poor hygiene: (4) Unable to care for self: (5) Bipolar 1 disorder: (6) Morbid obesity with BMI of 45.0-49.9, adult: (7) DM2 (diabetes mellitus, type 2): QUALIFIERS: Diabetes mellitus complication status: with other specified complication Diabetes mellitus half-way insulin use: with half-way use Qualified Code(s): E11.69 - Type 2 diabetes mellitus with other specified complication; Z79.4 - longterm (current) use of insulin PLAN: Plan 1. Acute Cystitis; with microscopic hematuria in the setting of known frequent UTIs - Admit to general medical floor. Continue empiric IV ceftriaxone and await culture and sensitivity data. Give acetaminophen as needed for haer-cv-qupqxbud (level 1-5/10) pain or fever. Give oxycodone [...] 75 minutes. Charges/Coding Visit Charges Inpatient E&M: 02437 Init Hosp L3 10/10/24 0653 Cosigner Signature (if applicable): CC: Dr. Missael Hernandez DO; Dr. Shayna Malhotra MD~ Signed [facility]25 Radiology Diagnostic study note [facility] Imaging Services [facility] [place], [place] [address] Extremity Lower without Contra MR#: [id number] Acct: [id number] Name: VIDA NINA Rep #: [id number] : 1950 F 73 From: Daniel Sanchez MD PCP: Dr. Shayna Malhotra MD Status: ADM IN Study:Extremity Lower without Contra Date of Exam: 10/09/24 Exam# [id number] Ordering Dr: Missael Piña DO PROCEDURE: EXTREMITY [...] Hernandez at 2:20 a.m. 10/10/2024 Reading Location: [facility] CC: Dr. Missael Hernandez DO; Dr. Shayna Malhotra MD ~ Sports Management Professor: Signed [facility]05-[facility]25 Discharge summary Author Dany Richardson [facility] Note Date/Time October 09, 2024 9:22pm [facility] Medical Records Department [address] [place] [address] Emergency Department Summary 10/09/24 MR#: [id number] Acct: [id number] Name: VIDA NINA Rep #:[id number] : 1950 73 From: Dany Richardson MD PCP: Dr. Shayna Malhotra MD Status:REG ER Location: ED HPI History of Present Illness Chief Complaint: Lower Extremity Injury Narrative Narrative: 73-year-old female states that she had pins placed in her left foot approximately 15 years ago [place] after breaking her heel. She is currentlyin [facility] [place]. She states for the last 2 weeks [...] a baby out of her left heel. [facility] Medical History Obesity Anxiety Cancer Anxiety [...] acetonide 0.1 % 1 applic topical Q12H WA N PRN Rash 09/20/21 Unknown History topical [...] D #0 grams 11/24/21 Unknown Rx powder ([facility]) quetiapine 100 mg tablet 300 mg [...] nonspecific foot pain. She was given 1 Calhoun for analgesia here, and x- rays were [...] plan was to discharge her back to [facility] [place], however I was approached by the RN, [...] 72.1 H Lymph % (Auto) 16.3 L Caswell % (Auto) 8.3 Eos % (Auto) 2.5 [...] Clarity Cloudy Urine pH 5.0 Ur Specific Richmond 1.020 Urine Protein 30 H Urine Glucose [...] self, UTI (urinary tract infection) Disposition Disposition: [facility] What to do if you have Problems For any increased pain, shortness of breath, bleeding, nausea or vomiting, chestpain, or any unexpected problems, contact your Primary Care Provider. Call [facility] ([phone]) or report to the closest Emergency Room. Call 911 if necessary. 10/09/242121 <Electronically signed by Dany Richardson MD> Cosigner Signature (if applicable): CC: Dr. Shayna Malhotra MD ~ Signed [facility] Work Phone: 1(111) 511-979305-06-2025 Discharge summary [facility] Medical Records Department [address] [place] [address] Emergency Department Summary 10/09/24 MR#: [id number] Acct: [id number] Name: VIDA NINA Rep #:[id number] : 1950 73 From: Dany Richardson MD PCP: Dr. Shayna Malhotra MD Status:REG ER Location: ED HPI History of Present Illness Chief Complaint: Lower Extremity Injury Narrative Narrative: 73-year-old female states that she had pins placed in her left foot approximately 15 years ago [place] after breaking her heel. She is currentlyin [facility] [place]. She states for the last 2 weeks [...] a baby out of her left heel. [facility] Medical History Obesity Anxiety Cancer Anxiety [...] acetonide 0.1 % 1 applic topical Q12H WA N PRN Rash 09/20/21 Unknown History topical [...] D #0 grams 11/24/21 Unknown Rx powder ([facility]) quetiapine 100 mg tablet 300 mg [...] nonspecific foot pain. She was given 1 Calhoun for analgesia here, and x-rays were obtained of the left footin 3 views. On my independent interpretation of her x-rays, there are postsurgical changes including hardware,but no evidence of a periprosthetic fracture, no noted loosening of hardware. There are arthritic changes as well. I reviewed the radiology report which confirms my independent interpretation. Initially my plan was to discharge her back to [facility] [place], however I was approached by the RN, [...] 72.1 H Lymph % (Auto) 16.3 L Caswell % (Auto) 8.3 Eos % (Auto) 2.5 [...] Clarity Cloudy Urine pH 5.0 Ur Specific Richmond 1.020 Urine Protein 30 H Urine Glucose [...] changes. Soft tissue swelling. Reading Location: [facility] Management Discussion w/another healthcare provider: Hospitalist Discharge Plan Dx/Rx/DC Orders Clinical Impression: Pain of left heel, Debility, Obesity, Unable to care for self, UTI (urinary tract infection) Disposition Disposition: [facility] What to do if you have Problems For any increased pain, shortness of breath, bleeding, nausea or vomiting, chestpain, or any unexpected problems, contact your Primary Care Provider. Call [facility] ([phone]) or report tothe closest Emergency Room. Call 911 if necessary. 10/09/242121 Cosigner Signature (if applicable): CC: Dr. Shayna Malhotra MD ~ Signed [facility]25 Radiology Diagnostic study note [facility] Imaging Services [address] [place] [address] Foot min 3 Views MR#: [id number] Acct: [id number] Name: VIDA NINA Rep #: [id number] : 1950 F 73 From: Katarina Jiménez MD PCP: Dr. Shayna Malhotra MD Status: REG ER Study:Foot min 3 Views Date of Exam: 11/28 Exam# [id number] Ordering Dr: Dany Richardson MD EXAM: LEFT [...] Richardson MD; Dr. Shayna Malhotra MD ~ Sports Management Professor: Signed [facility] Evaluation note* Diagnosis Onset Date [...] 2) chronic October 09, 2024 9: 56pm [facility] Work Phone: 1(733) 846-400004-29-2022 NoteHNO ID: [id number] Author: Jennifer Cuevas MD Service: ? Author Type: Physician Type: Progress Notes Filed: 12/01/2021 8:04 AM Note Text: Gynecologic Oncology [facility] Follow up visit Date of service: 10/02/2021 PROBLEM/CC: Vida Nina presents for a post-op visit. SURGICAL PATHOLOGY [[id number]] Collected: 09/07/21 1104 Order Status: Completed Specimen: Tissue from UTERUS, CERVIX, BILATERAL FALLOPIAN TUBES AND BILATERAL OVARIES Updated: 09/11/21 1319 Case Report -- Surgical Pathology Report ? Case: [id number] ? Authorizing Provider: ?Jennifer Cuevas MD ? [...] A11 and A16 were reviewed at the [facility] gynecologic pathology consensus conference via telepathology on 09/09/20[address] Lupe Younger and Andra Franco agree with the diagnosis of acute salpingitis. ? Laboratory Developed Test (LDT) Disclaimer: Performance characteristics of immunohistochemical, immunofluorescent and chromogenic in-situ hybridization tests have been determined by the performing laboratory within [facility]?s [facility] Pathology and Laboratory Medicine [place] ([facility], [facility], [facility] or [facility]) in a manner consistent with CLIA requirements. [...] and ( (more content not included)...[facility]04-29-2022 History of Present illness Narrative* Jennifer Cuevas MD - 10/02/2021 1:00 PM EDT Gynecologic Oncology [facility] Follow up visit Date of service: 10/02/2021 PROBLEM/CC: Vida Nina presents for a post-op visit. SURGICAL PATHOLOGY [[id number]] Collected: 09/07/21 1104 Order Status: Completed Specimen: Tissue from UTERUS, CERVIX, BILATERAL FALLOPIAN TUBES AND BILATERAL OVARIES Updated: 09/11/21 9265 Case Report -- Surgical Pathology Report Case: [id number] Authorizing Provider: Jennifer Cuevas MD Collected: 09/07/2021 11:04 AM Ordering Location: [facility] Received: 09/07/2021 11:12 AM Pathologist: [...] A11 and A16 were reviewed at the [facility] gynecologic pathology consensus conference via telepathology on 09/09/20[address] Lupe Younger and Andra Franco agree with the diagnosis of acute salpingitis. Laboratory Developed Test (LDT) Disclaimer: Performance characteristics of immunohistochemical, immunofluorescent and chromogenic in-situ hybridization tests have been determined by the performing laboratory within [facility] s [facility] Laboratory [facility] [place] ([facility], [facility], [facility] or [facility]) in a manner consistent with CLIA requirements. [...] fibrous ovarian parenchyma with no lesions identified. Nursery Technician sections are submitted as follows: A1-anterior cervix [...] A 17-right ovary Gross examination performed at [facility], [address] [place] [address] CLIA#[id number] OLS September 08, 2021 10:33 AM Intraoperative [...] many years since she has seen a organic gardening teacher, maybe > 10 years. Reports normal pap [...] Her incisions have healed well. Abdomen non-tender. Docketing Specialist for exam: Sherrie RESULTS: 07/26/21: ULTRASOUND The [...] without Cont on 08-07-2021 Abdomen/Pelvis without Cont [facility] Imaging Services [address] [place] [address] Abdomen/Pelvis without Cont MR#: [id number] Acct: [id number] Name: VIDA NINA Rep #: [id number] : 1950 F 70 From: Power Lopez MD PCP: Dr. Shayna Malhotra MD Status: REG CLI Study: Abdomen/Pelvis without Cont Date of Exam: 09/25 Exam# [id number] Ordering Dr: Saad Villagomez MD STUDY: CT [...] Paper guidelines (Godoy-Parrish, et al. JACR 2017; 14(8):8822-9423) suggest no imaging follow-up is necessary. ACR White Paper guidelines (Godoy-Parrish, et al. JACR 2017; 14(8):0832-7938) suggest no imaging follow-up is necessary. Consider [...] diagnosis with patient and caregiver (Arianna from [facility] [place]). Discussed recommendations for treatment including TLH-BSO, sentinel [...] deemed medically necessary. [facility]ed [facility] from [facility] and Dr. Villagomez (medical oncologist) office. Requested images from CT A/P and ultrasound to be uploaded for review. Noted elevated CA 125. Plan to proceed with surgery in September. Will need preoperative anesthesia appointment. Contact information for Jose Rafael Resendiz: nurse line [phone]; commercial front load operator [phone]. Documentation from my notes of previous visit [...] arrange referral to radiation treatment center in [place], [place] five minutes from where she lives. [...] Past Histories independently gathered by the clinical manager support services and the remaining scribed note accurately describes my personal service to the patient. documented in this [facility] Nurse Note* Moriah Aldridge RN - 10/02/2021 12:50 PM EDT Patient arrived amb A&Ox4 in [facility] for post op visit. Patient admits to pain in abd and lower back resolved since surgery. Pt denies any new concerns, today. Pt here with Marguerite, friend. Enc and support provided. Moriah Aldridge RN documented in this encounterMer[facility]. [facility]04-18-2022 Miscellaneous Notes* Telephone Encounter - Jeffrey Ferris - 09/21/2021 12:10 PM EDT Spoke to Nurse Bernadine from [facility] [place] stated that the patient is in the hospital and she will call when the patient comes out. So 09/22/21 appt in this office with Dr. Cuevas has been cancelled. Jeffrey Ferris 09/21/21 documented in [address]04-07-2022 Miscellaneous Notes* Telephone Encounter - Taniya Balderas APRN.COTTON PICKING MACHINE OPERATOR - 09/10/2021 8:25 AM EDT Called [facility] left message on nurse line to [...] involved verbal instructions per Dr julieth Balderas APRN.COTTON PICKING MACHINE OPERATOR documented in this encounterMer[facility]. [facility]04-06-2022 Miscellaneous Notes* Telephone Encounter - Summer Turcios RN - 09/09/2021 2:50 PM EDT Franklin from [facility] returned call to this RN. Reviewed message [...] confidential e-mail) Attempted to call Franklin at [facility] to review above message, no answer. Left message on voicemailto return call. Summer Turcios RN * Telephone Encounter - Summer Turcios RN - 09/09/2021 1:58 PM EDT Franklin, instructor of nursing at [facility] [place] called stated, one of patient's lap sites [...] e-mail). Summer Turcios RN documented in this encounterMercy Health St. [facility]04-05-2022 NoteHNO ID: [id number] Author: Sam Naidu DO Service: Gynecology Oncology [...] Date 09/07/21 0700 - 09/08/21 0659 Shift [id number] 3941-2415 8593-8669 24 Hour Total PO 360 360 PO 360 360 IV 8725 572 9921 Volume (mL) (ceFAZolin 3 g in D5W 100 mL (ANCEF)) 100 100 Volume (mL) (NaCl 0.9% iv infusion) 500 500 Volume (mL) (lactated ringers iv infusion) 1300 1300 Volume (mL) (lactated ringers iv infusion) 300 300 Shift Total 7813 414 5709 Urine 1000 1000 Void (ml) 1000 1000 [...] Sam Naidu, DO 1,000 mg at 09/08/21 05 - keTORolac 15 mg injection (TORADOL) 15 [...] 1545 VTE RISK CATEGORY: SURGICAL HIGH RISK (SD,MI) Active VTE Medication Orders: Anticoagulant AND Antiplatelet Medications (From admission, onward) Start Dose Route Frequency Last Action Ordered Stop 09/08/21 0900 enoxaparin 40 mg injection (LOVENOX) (Surgical Risk Categories) 40 mg SUBCUTANEOUS EVERY 24 HOURS Ordered 09/07/211541 -- Active VTE Prophylaxis Orders: 09/07/21 154 PNEUMATIC COMPRESSION STOCKINGS (SD,MI) 09/07/211544 ACTIVITY - MOBILIZE PATIENT ([place], [place]) VTE Prophylaxis: VTE prophylaxis appropriate Assessment/Plan Vida Nina is a 70 year old year old female POD#1 s/p EUA, TLH-BSO for endometrial cancer #Postoperative care - VSSAF - VTE (more content not included)...[facility]04-04-2022 Note HNO ID: [id number] Author: Hieu Raymond APRN.DRYER AND WASHER MECHANIC Service: Anesthesiology Author Type: Nurse Impact Hammer Operator Type: Anesthesia Procedure Notes Filed: 09/07/2021 9:28 AM Note Text: ANESTHESIOLOGY PROCEDURE NOTE Airway General Information Procedure Start Time/Medication Administration: 09/07/2021 8:29 AM Patient location during procedure: OR Timeout Performed Pre-procedure: timeout performed Consent Obtained: Yes Patient identity confirmed: arm band Staffing DRYER AND WASHER MECHANIC: Hieu Raymond APRN.DRYER AND WASHER MECHANIC Performed by: ANURAG Indications and Patient Condition Preoxygenated: yes Patient position: sniffing, ramp and reverse Trendelenburg Manual In-Line Stabilization: No Difficult Mask: No Indications for airway management: anesthesia anesthesia circuit Method: modified rapid sequence Cricoid Pressure: Yes Airway Accessory: oral airway Final Airway Details Final airway type: endotracheal airway Final Endotracheal Airway: ETT Cuffed: yes Successful intubation technique: video laryngoscopy Devices used: Imagistx Endotracheal tube insertion site: oral Blade: Osman [...] intubation: no Difficult airway SIGNATURE: Hieu Raymond APRN.DRYER AND WASHER MECHANIC PATIENT NAME: Vida Nina DATE: September 07, 2021 TIME: 9:25 AM CSN: [id number] Light [facility]03-29-2022 Instructions * Patient Instructions* Naila Barrientos APRN.[facility] - 09/01/2021 3:11 PM EDT PATIENT PREOPERATIVE INSTRUCTIONS Your surgeon has scheduled for your procedure at this surgery center: Dr. Cuevas has scheduled you for your procedure at this surgery center [facility]: [phone], [address] [place], [place] [address] Enter the hospital through the main entrance and proceed directly to the Surgery Welcome Center. Asyou enter the Surgery Welcome Center and sign in with the receptionist doctor's office, we may ask for your photo ID [...] If you are having [facility] [...] surgery. - YOU MUST HAVE A RESPONSIBLE SENIOR NETWORK SYSTEMS ENGINEER TAKE YOU HOME. A LIBRARY ASSISTANT, CAB OR UBER SENIOR NETWORK SYSTEMS ENGINEER CANNOT BE MADEA RESPONSIBLE SENIOR NETWORK SYSTEMS ENGINEER. - We recommend that a responsible person [...] COVID-19 positive. If visitors do not follow [facility] masking guidelines, caregivers can ask [facility] and restrict their visitation privileges. For support, contact Elizabeth at [phone] or [email or web address]. The visitor will be allowed [...] A Guide of Mind Body Techniques ([place], [place];[employer]: Fourth Edition) 2011 Naila Barrientos APRN.CNP 09/01/21 documented in [address] encounterMercy Health St. [facility]03-29-2022 History and physical note * Nailamustapha Barrientos, GILA.COTTON PICKING MACHINE OPERATOR - 09/01/2021 2:53 PM EDT HISTORY AND [...] with Dr. Cuevas. Surgery will be at [facility] Scheduled as an TBA Have you been in contact with someone with known coronavirus/Covid 19? no Have you had surgery or pre testing at [facility] in the past 3 years? no [...] Negative for: AICD/PPM, chest pain, CHF, recent TX and open heart surgery. GI: Positive for: abdominal pain Negative for: nausea and vomiting. : No history of dysuria, frequency or incontinence, stones or chronic kidney disease. No difficulty urinating, nocturia > 1 time per night or hematuria. 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 [...] or any previous visit (from the past 66926 hour(s)). Assessment No problem-specific Assessment & Plan [...] slightly elevated. Treated with oral medications. No cake cutter machine Hyperlipidemia- treated with a statin Pertinent cardiac [...] Initiated: Ordered by surgeon- none Ordered by rn postpartum - cbc, T*S, con abo Instructions Given to Patient: Instructions located in the after visit summary. Patient given verbal and written preop instructions and voices comprehension and compliance. SIGNATURE: Naila Barrientos APRN.CNP PATIENT NAME: Vida Nina DATE: September 01, 2021 TIME: 2:53 PM PAGER/CONTACT #: documented in this encounterMercy Health St. [facility]03-18-2022 NoteHNO ID: [id number] Author: Jennifer Cuevas MD Service: ? Author Type: Physician Type: Progress Notes Filed: 08/26/2021 1:21 PM Note Text: Gynecologic Oncology [facility] General Consult Date of service: 08/21/2021 PCP: [...] many years since she has seen a organic gardening teacher, maybe > 10 years. 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 Age at Menarche: ? Age at First : ? Age at Menopause: ? 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 Sexual Activity: Not Asked; [...] by mouth (more content not included)...[facility] 07-29-2021 NoteHNO ID: [id number] Author: Krunal Erazo MD Service: ? Author [...] many years since she has seen a organic gardening teacher, maybe > 10 years. 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 Sales Representative Meats History LMP: Postmenopausal Age at Menarche: Age at First : Age at Menopause: Sales Representative Meats History Comments: Sexual Activity: Not Asked; No [...] external genitalia atrophic, normal Bartholin's glands, urethra, [place]'s glands, no vulvar lesions, no cervical lesions, good vaginal support, normal appearing perineal body and perianal region, scant (more content not included)...[facility]* Diagnosis Pre-op testing- Primary Preoperative examination, unspecified Endometrial cancer (HCC) Malignant neoplasm of corpus uteri, except isthmus Mixed hyperlipidemia 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, with long-term current use of insulin (HCC) Primary hypertension Unspecified essential hypertension Endometrial cancer (HCC) Malignant neoplasm of corpus uteri, except isthmus documented in this encounter [facility]* Diagnosis Onset Date Resolution Status Uterine mass acute Endometrial adenocarcinoma a cute Debility acute Pulmonary embolism acute [facility] Work Phone: Evaluation note* Diagnosis Onset Date Resolution Status Uterine mass acute Endometrial adenocarcinoma a cute Debility acute Pulmonary embolism acute Debility acute Elevated troponin I level ac [place] Lactic acidosis acute DM2 (diabetes mellitus, type 2) chronic [facility] Work Phone: Evaluation note* Diagnosis Endometrial cancer (HCC)- Primary Malignant neoplasm of corpus uteri, except isthmus documented in this encounter [facility]* Diagnosis Onset Date Resolution Status Debility acute Pulmonary embolism acute Debility acute DM2 (diabetes mellitus, type 2) chronic Elevated troponin I level re solved Lactic acidosis resolved [facility] Work Phone: Evaluation noteNo assessment information available [facility] Work Phone: Evaluation note* Diagnosis Onset Date Resolution Status Debility acute Endometrial adenocarcinoma a cute Former smoker acute History of seizures acute Pulmonary embolism acute Vitamin D deficiency acute Bipolar disorder chronic DM2 (diabetes mellitus, type 2) chronic Type 1 diabetes mellitus chr onic [facility] Work Phone: Evaluation note* Diagnosis Onset Date Resolution Status Debility acute Vitamin D deficiency acute Bipolar disorder chronic Depression chronic DM2 (diabetes mellitus, type 2) chronic [facility] Work Phone: [facility] Work Phone: Hospital Discharge instructionsW[facility] [place] Work Phone: Hospital Discharge instructions Additional Instructions [...] care physician for further outpatient evaluation and management.[facility] Work Phone: Reason for referral (narrative)No reason for referral information availableWSelect [facility] - [place] Work Phone: Summary Purpose Family History No [...] FoundDocuments on File Type Date Recorded Patient Nursery Technician Expl anation Advance Directive(s) 09/07/2021 6:14 AM Advance Directive Response Recorded Date/ Time Living Will No September 20, 2021 7:30am Power of Clinical Administrative Coordinator No September 20 7:30am Advance Directive Response Recorded Date/ Time Living Will No September 20, 2021 12:38pm Power of Clinical Administrative Coordinator No September 20 12:38pm Advance Directive Response Recorded Date/ Time Name of Medical Power of Clinical Administrative Coordinator TODD November 22, 2021 1:03pm Living Will Yes November 22, 2021 1:03pm Power of Clinical Administrative Coordinator Yes November 22 1:03pm Advance Directive Response Recorded Date/ Time Name of Medical Power of Clinical Administrative Coordinator Todd Nina November 22, 2021 5:55pm Living Will No November 22, 2021 5:55pm Power of Clinical Administrative Coordinator Yes November 22 5:55pm Advance Directive Response Recorded Date/ Time Living Will No April 13 10:27am Power of Clinical Administrative Coordinator Yes April 13, 2022 10:27am Advance Directive Response Recorded Date/ Time Living Will No April 13 11:27am Power of Clinical Administrative Coordinator Yes April 13, 2022 11:27am Advance Directive Response Recorded Date/ Time Living Will No January 09, 2023 5:18pm Power of Clinical Administrative Coordinator No January 09 5:18pm Advance Directive Response Recorded Date/ Time Living Will No January 09, 2023 4:18pm Power of Clinical Administrative Coordinator No January 09 4:18pm Advance Directive Response Recorded Date/ Time Do you have a Healthcare Power of Clinical Administrative Coordinator? Yes October 09, 2024 5:45pm Advance Directive Response Recorded Date/ Time Do you have a Healthcare Power of Clinical Administrative Coordinator? No October 09, 2024 11:07pm Health Concerns Infection Onset Date Last Indicated Resolved Time COVID-19 Rule-Out 09/07/2021 09/07/2021 Chief Complaint and Reason for Visit Chief Complaint CUSTODIAL LABOWRK CUSTODIAL LABWORK CUSTODIAL LABWORK VAGINAL BLEEDING NEW-CERVICAL MASS MED ONC CERVICAL MASS 2WKS NO LABS REVIEW CT/PATH FRO [facility] PE, FAILURE TO THRIVE PE, FAILURE TO THRIVE Reason for Visit Uterine mass Endometrial adenocarcinoma Debility Pulmonary embolism Chief Complaint CUSTODIAL LABOWRK CUSTODIAL LABWORK CUSTODIAL LABWORK VAGINAL BLEEDING NEW-CERVICAL MASS MED ONC CERVICAL MASS 2WKS NO LABS REVIEW CT/PATH FRO [facility] PE, FAILURE TO THRIVE PE, FAILURE TO THRIVE PE, FAILURE TO THRIVE PE, FAILURE TO THRIVE Reason for Visit Uterine mass Endometrial adenocarcinoma Debility Pulmonary embolism Chief Complaint CUSTODIAL LABWORK CUSTODIAL LABWORK VAGINAL BLEEDING NEW-CERVICAL MASS MED ONC CERVICAL MASS 2WKS NO LABS REVIEW CT/PATH FRO [facility] CUSTODIAL LABWORK PE, FAILURE TO THRIVE PE, FAILURE TO THRIVE PE, FAILURE TO THRIVE PE, FAILURE TO THRIVE CUSTODIAL LABWORK Reason for Visit Uterine mass Endometrial adenocarcinoma Debility Pulmonary embolism Chief Complaint VAGINAL BLEEDING NEW-CERVICAL MASS MED ONC CERVICAL MASS 2WKS NO LABS REVIEW CT/PATH FRO [facility] CUSTODIAL LABWORK PE, FAILURE TO THRIVE PE, FAILURE TO THRIVE PE, FAILURE TO THRIVE PE, FAILURE TO THRIVE CUSTODIAL LABWORK CUSTODIAL LABWORK Reason for Visit Uterine mass Endometrial adenocarcinoma Debility Pulmonary embolism Chief Complaint VAGINAL BLEEDING NEW-CERVICAL MASS MED ONC CERVICAL MASS 2WKS NO LABS REVIEW CT/PATH FRO [facility] CUSTODIAL LABWORK PE, FAILURE TO THRIVE PE, FAILURE TO THRIVE PE, FAILURE TO THRIVE PE, FAILURE TO THRIVE CUSTODIAL LABWORK CUSTODIAL LABWORK DEBILITY/KAYLA Reason for Visit Uterine mass Endometrial adenocarcinoma Debility Pulmonary embolism Chief Complaint NEW-CERVICAL MASS MED ONC CERVICAL MASS 2WKS NO LABS REVIEW CT/PATH FRO [facility] CUSTODIAL LABWORK PE, FAILURE TO THRIVE PE, FAILURE TO THRIVE PE, FAILURE TO THRIVE PE, FAILURE TO THRIVE CUSTODIAL LABWORK CUSTODIAL LABWORK DEBILITY/KAYLA DEBILITY/KAYLA DEBILITY/KAYLA DEBILITY/KAYLA Reason for Visit Uterine mass Endometrial adenocarcinoma Debility Pulmonary embolism Debility Elevated troponin I level Lactic acidosis DM2 (diabetes mellitus, type 2) Chief Complaint CUSTODIAL LABWORK PE, FAILURE TO THRIVE PE, FAILURE TO THRIVE PE, FAILURE TO THRIVE PE, FAILURE TO THRIVE CUSTODIAL LABWORK CUSTODIAL LABWORK DEBILITY/KAYLA DEBILITY/KAYLA DEBILITY/KAYLA DEBILITY/KAYLA DEBILITY/KAYLA CUSTODIAL LABWORK CUSTODIAL LABWORK CUSTODIAL LAB WORK Reason for Visit Debility Pulmonary embolism Debility DM2 (diabetes mellitus, type 2) Elevated troponin I level Lactic acidosis Chief Complaint CUSTODIAL LABWORK CUSTODIAL LAB WORK Chief Complaint CUSTODIAL LAB WOR K 1 Y FU CUSTODIAL LAB WORK Reason for Visit Debility Endometrial adenocarcinoma Former smoker History of seizures Pulmonary embolism Vitamin D deficiency Bipolar disorder DM2 (diabetes mellitus, type 2) Type 1 diabetes mellitus Chief Complaint CUSTODIAL LAB WOR K 1 Y FU CUSTODIAL LAB WORK CUSTODIAL LAB WORK Reason for Visit Debility Endometrial adenocarcinoma Former smoker History of seizures Pulmonary embolism Vitamin D deficiency Bipolar disorder DM2 (diabetes mellitus, type 2) Type 1 diabetes mellitus Chief Complaint 1 Y FU CUSTODIAL LAB WORK CUSTODIAL LAB WORK CUSTODIAL LABWORK Reason for Visit Debility Endometrial adenocarcinoma Former smoker History of seizures Pulmonary embolism Vitamin D deficiency Bipolar disorder DM2 (diabetes mellitus, type 2) Type 1 diabetes mellitus Chief Complaint CUSTODIAL LAB WOR K 6 M FU gen illness Reason for Visit Debility Vitamin D deficiency Bipolar disorder Depression DM2 (diabetes mellitus, type 2) Chief Complaint CUSTODIAL LABWORK CUSTODIAL LABWORK Chief Complaint Admit Date LT Ankle Pain July 04, 2024 1 2:57pm CUSTODIAL LAB WORK July 09, 2024 4:00am ACUTE [...] 2:57pm Acute cystitis with hematuria October 09 025 9:56pm Bipolar 1 disorder October 09, [...] Ankle Pain July 04, 2024 1 2:57pm CUSTODIAL LAB WORK July 09, 2024 4:00am ACUTE CYSTITIS, NEUROPATHIC PAIN OF LEFT FOOT AND October 09, 2024 9:56pm ACUTE CYSTITIS, NEUROPATHIC PAIN OF LEFT FOOT AND October 10, 2024 7:39am Chief Complaint Admit Date LABOWRK November 26, 2024 5:00 am CUSTODIAL LAB WORK December 04, 2024 4:0 0am LABOWRK January 21, 2025 5: 00am Additional Source Comments INFORMATION SOURCE (unrecogn ized section and content) DATE CREATED AUTHOR 08/31/2021 [facility] DATE CREATED AUTHOR AUTHOR'S ORGANIZ ATION 12/01/2021 [facility] DATE CREATED AUTHOR AUTHOR'S ORGANIZ ATION 04/17/2025 [facility] Source Comments (unrecognize d section and content) In the event this informatio n is protected by the Federal Confidentiality of Alcohol and Drug Abuse Patient Records regulations: The Federal rules restrict any use of the information to criminally investigate or prosecute any alcohol or drug abuse patient.[facility] Hospital[facility] the event this information is protected by the Federal Confidentiality of Alcohol and Drug Abuse Patient Records regulations: The Federal rules restrict any use of the information to criminally investigate or prosecute any alcohol or drug abuse patient.[facility] HospitalIn the event this information is protected by the Federal Confidentiality of Alcohol and Drug Abuse Patient Records regulations: The Federal rules restrict any use of the information to criminally investigate or prosecute any alcohol or drug abuse patient.[facility] HospitalIn the event this information is protected by the Federal Confidentiality of Alcohol and Drug Abuse Patient Records regulations: The Federal rules restrict any use of the information to criminally investigate or prosecute any alcohol or drug abuse patient.[facility] HospitalIn the event this information is protected by the Federal Confidentiality of Alcohol and Drug Abuse Patient Records regulations: The Federal rules restrict any use of the information to criminally investigate or prosecute any alcohol or drug abuse patient.[facility] Reason for Visit (unrecogniz ed section [...] Shayna Malhotra MD Primary Care Provider Active [facility] Attending Provider Acti ve Team [...] BE BASED ON THE PRIMARY CLINICAL RECORDS. [facility] [employer] provides no warranty or guarantee of the accuracy or completeness of information in this document.
[2025-06-05 09:25] LABS: Hematocrit 31.9 % (37-47); Hemoglobin 10.6 g/dL (12.0-15.0); Mean Corp Hgb Conc 33.2 g/dL (32-36); Mean Corpuscular Volume 90.9 fL (81-99); Mean Platelet Vol. 10.3 fl (6.2-12.0); Platelet Count 115 K/mm3 (150-450); RBC Distribution Width CV 14.7 % (11.6-14.6); RBC Distribution Width SD 48.8 fl (35.1-43.9); Red Blood Count 3.51 M/mm3 (4.2-5.4); White Blood Count 5.2 K/mm3 (4.4-11.0)
[2025-06-05 09:38] LABS: Anion Gap 10 (7-18); BUN 20 mg/dL (4-19); BUN/Creat Ratio 20.7 RATIO (10-20); Calcium,Total 9.3 mg/dL (7.6-11.0); Carbon Dioxide 21.9 mmol/L (20.0-29.0); Chloride 105 mmol/L (96-106); Glucose 160 mg/dL (70-99); Potassium 4.9 mmol/L (3.5-5.1); Pro- Brain NATRIURETIC PEPTIDE 200 pg/mL (<=900)
== END ==
LOC: OLS.SWAL 05:00
PROVIDERS: PCP Internal Medicine; Visit Provider Internal Medicine
DX: R60.9 Edema, unspecified (principal)
CPT/HCPCS: 36415; 80048; 83880; 85027